=== PATIENT | male | born 1960 | race Caucasian/White ===

== ENCOUNTER 2020-09-24 19:40 | Emergency (ER) | payer MEDICARE, MEDICAID, SELFPAY ==
[2020-09-24 19:42] VITALS: BP 195/91; PULSE 81; RESP 18; TEMP 36.6; O2SAT 96; BMI 38.7
--- NOTE | 2020-09-24 19:49 | EKG12_ITS ---
Test Reason : HTN Blood Pressure : / mmHG Vent. Rate : 078 BPM Atrial Rate : 078 BPM P-R Int : 210 ms QRS Dur : 094 ms QT Int : 408 ms P-R-T Axes : 108 020 029 degrees QTc Int : 465 ms Sinus rhythm with 1st degree A-V block with Premature supraventricular complexes Otherwise normal ECG Confirmed by ROLAND JOHNS, FAUSTINA ([id number]), story editor SHARAN DOE ([id number]) on 09/26/2020 9:09:11 AM Referred By: MERRITT Confirmed By:FAUSTINA WATKINS MD
--- NOTE | 2020-09-24 19:49 | CT_ITS ---
STUDY: CT BRAIN WITHOUT CONTRAST REASON FOR EXAM: Male, 60 years old. HEADACHE, INCREASED BP RADIATION DOSAGE (If Supplied By Facility): CTDIvol = ( 44.99 ) mGy, DLP = ( 863.60 ) mGycm TECHNIQUE: Transaxial CT imaging of the brain was performed without administration of intravenous contrast material. Individualized dose optimization techniques were used for this CT. COMPARISON: No relevant priors. FINDINGS: Normal soft tissue structures. Normal calvarium. Calcification of cavernous carotids and vertebral arteries. Normal size ventricles and extra-axial spaces for the patient''s age. Mild periventricular white matter ischemic changes.. Normal basal ganglia and thalami. Normal brainstem. Normal cerebellum. There is no intracranial hemorrhage. There are no findings of an acute ischemic infarction. Postsurgical changes of the orbits Normal visualized paranasal sinuses. CT/Brain/Head without Contrast IMPRESSION: Mild periventricular white matter ischemic changes. No evidence for obstructive hydrocephalus mass or acute bleed. If concern for acute infarct MRI recommended Electronically Signed: Steven Mcgee MD at 20:12 EDT , Service support ,
--- NOTE | 2020-09-24 19:52 | ED.RN ---
NO OLD EKGS IN MUSE
--- NOTE | 2020-09-24 19:57 | ED.DCSUM_ITS ---
History of Present Illness Chief Complaint: Hypertension Informant: Patient Onset: Today Context: Gradual Onset Timing: Continuous Current Severity: Mild Maximum Severity: Moderate Narrative: The patient is a 60-year-old male with medical history significant for hypertension, hyperlipidemia, stage III kidney disease, prior kidney stone, coronary vascular disease status post stenting who presents to the emergency department with elevated blood pressure. The patient states that he went to [place] today to see his primary care doctor. He states that he had blood w ork done which showed that his A1c was good. He states his blood pressure was mildly elevated in the office. His physician told him to test it when he got home. He states that he went to the drug [place] and took his blood pressure. He states it was 230 systolic. He states this made him very anxious. He does describe a mild frontal headache. He denies chest pain or shortness of breath. He called squad because of how elevated his blood pressure was. He states he has not taken his nighttime doses. Prior similar symptoms: No Recent Illness/Hospitalization: No Past Medical History - Allergies and Home Meds Allergies/Adverse Reactions: Allergies allopurinol Adverse Reaction (Verified 09/24/20 19:42) Vomiting Influenza Virus Vaccines Adverse Reaction (Verified 09/24/20 19:42) Vomiting pneumococcal vaccine Adverse Reaction (Verified 09/24/20 19:42) Vomiting Primary Care Physician: SAMM VALENCIA [Other] Prior records reviewed: Yes Past Medical History: - - Hypertension, hyperlipidemia, coronary vascular disease, chronic kidney disease, diabetes Smoking Status: Never smoker Review of Systems General: Denies: Chills, Fever, Sweats Eyes: Denies: Visual changes - bilaterally, Diplopia ENT: Denies: Rhinorrhea, Sore throat Cardiovascular: Denies: Chest pain, Palpitations Respiratory: Denies: Dyspnea, Cough, Dyspnea on exertion Gastrointestinal: Denies: Abdominal pain, Nausea, Vomiting, Diarrhea, Melena, Hematochezia Genitourinary: Denies: Dysuria, Hematuria, Frequency Musculoskeletal: Denies: Back pain, Extremity Pain Skin: Denies: Rash, Wounds Neurological: Denies: Headache, Weakness, Numbness Physical Exam Vital Signs/Narrative: Vital Signs Temp Pulse Resp BP Pulse Ox 09/24/20 19:42 98 F 81 18 195/91 H 96 Inital Vital Signs reviewed: Yes General: Well nourished, Well developed, No Acute Distress Head: Normocephalic, Atraumatic Eyes: Perrl, EOMI ENT: Moist mucous membranes, No rhinorrhea Neck: Supple, Nontender Cardiovascular: Regular rate, Regular rhythm, No murmurs Respiratory: No distress, CTA bilaterally, Chest nontender Abdomen: Soft, Nontender, Nondistended, Normal bowel sounds Back: Nontender, Normal Inspection Extremities: Nontender, No edema Skin: Normal color, No rash Neurological: Alert, Oriented x3, Cranial nerves II-XII grossly intact, Normal Strength, Normal Sensation Psychological: Normal affect, Normal Mood Diagnostic/Tx/Re-eval Clinical Impression(s) from Imaging Studies Brain CT 09/24/20 19:49 IMPRESSION: Mild periventricular white matter ischemic changes. No evidence for obstructive hydrocephalus mass or acute bleed. If concern for acute infarct MRI recommended Electronically Signed: Steven Mcgee MD at 20:12 EDT , Service support , Abnormal Lab Results 09/24/20 09/24/20 19:50 19:50 WBC 9.3 RBC 4.87 Hgb 14.1 Hct 44.6 MCV 91.6 MCH 29.0 MCHC 31.6 L RDW Std Deviation 44.4 H RDW Coeff of James 13.2 Plt Count 218 MPV 10.5 Immature Gran % (Auto) 0.200 Neut % (Auto) 69.1 Lymph % (Auto) 21.1 [place] % (Auto) 8.1 Eos % (Auto) 1.1 Baso % (Auto) 0.4 Absolute Neuts (auto) 6.4 Absolute Lymphs (auto) 1.97 Nucleated RBC % 0 Sodium 142 Potassium 4.1 Chloride 106 Carbon Dioxide 32.0 Anion Gap 4 L BUN 19 H Creatinine 1.42 H Estim Creat Clear Calc 56.41 Est GFR (MDRD) Af Amer 65 Est GFR (MDRD) Non-Af 54 L BUN/Creatinine Ratio 13.4 Glucose 238 H Calcium 9.3 Total Bilirubin 0.50 AST 19 ALT 23 Alkaline Phosphatase 148 H Total Protein 7.7 Albumin 3.6 Globulin 4.1 Albumin/Globulin Ratio 0.9 - Medical Decision Making The patient presents with elevated blood pressure. He did describe mild frontal headache which is since resolved. Noncontrast head CT was obtained which was unremarkable. The patient was hypertensive. He has not taken his evening medications. Patient was given a dose of his clonidine. His blood pressure still maintained elevated. He was given hydralazine and his evening dose of Coreg. Within an hour, his blood pressure was improving. His symptoms have totally resolved. His work-up was essentially negative. At this point, I do feel that he is safe for outpatient follow-up. He is comfortable with this plan of care. Impression 1. Hypertensive urgency ED Disposition - Plan for ED Patient: Instructions: ED Hypertension Established Referrals: SAMM VALENCIA [Other]
[2020-09-24 20:04] LABS: Absolute Lymphocyte Count 1.97 X10^3/uL (0.83-4.51); Absolute Neutrophil Count 6.4 X10^3/uL (2.0-7.7); Basophil# 0.04 X10^3/uL; Basophil% 0.4 % (0-1); Eosinophils% 1.1 % (0-5); Hematocrit 44.6 % (40-54); Hemoglobin 14.1 g/dL (13.0-16.5); Lymphocyte # 1.97 X10^3/ul (4.0); Lymphocyte % 21.1 % (19-41); Mean Corp Hgb Conc 31.6 g/dL (32-36); Mean Corpuscular Volume 91.6 fL (80-94); Mean Platelet Vol. 10.5 fl (6.2-12.0); Monocyte# 0.76 X10^3/uL; Monocyte% 8.1 % (0-10); NRBC Flagged by Analyzer 0 % (0-5); Neutrophil # 6.44 X10^3/uL (2.7-7.7); Neutrophil % 69.1 % (47-70); Platelet Count 218 K/mm3 (150-450); RBC Distribution Width CV 13.2 % (11.6-14.6); RBC Distribution Width SD 44.4 fl (35.1-43.9); Red Blood Count 4.87 M/mm3 (4.6-6.2); White Blood Count 9.3 K/mm3 (4.4-11.0)
[2020-09-24 20:21] LABS: ALB/GLOB Ratio 0.9 RATIO (0.9-2.4); AST(SGOT) 19 U/L (15-37); Alanine Aminotransfer ALT/SGPT 23 U/L (16-61); Albumin, Serum 3.6 g/dL (3.2-5.0); Alkaline Phosphatase 148 U/L (45-117); Anion Gap 4 (5-15); BUN 19 mg/dL (7-18); BUN/Creat Ratio 13.4 RATIO (10-20); Calcium,Total 9.3 mg/dL (8.5-10.1); Chloride 106 mmol/L (98-107); Creatinine, Serum 1.42 mg/dL (0.70-1.30); EST Glomerular Filtration Rate 54 mL/min (>60); Est Glom Filt Rate - Afr Amer 65 mL/min (>60); Estimated Creatinine Clearance 56.41 ml/min; Globulin 4.1 g/dL (2.2-4.2); Glucose 238 mg/dL (74-106); Potassium 4.1 mmol/L (3.5-5.1); Protein, Total 7.7 g/dL (6.4-8.2); Sodium Level 142 mmol/L (136-145)
[2020-09-24] MEDS: Clonidine HCl 0.1 MG, Clonidine HCl 0.2 MG 0.3 MG PO (20:26)
[2020-09-24 21:31] VITALS: BP 240/110
[2020-09-24] MEDS: hydrALAZINE 20 MG/ML Vial 10 MG IV (21:36)
[2020-09-24] MEDS: Carvedilol 25 MG Tablet PO (21:47)
[2020-09-24 22:12] VITALS: BP 215/98; PULSE 89; RESP 22; O2SAT 95
[2020-09-24 22:32] VITALS: BP 192/104; PULSE 90; RESP 16; O2SAT 96
== END 2020-09-24 22:37 | disposition home or self-care (01) ==
LOC: ED 20:26
PROVIDERS: Emergency Provider Emergency Medicine
DX: I16.0 Hypertensive urgency (principal); I12.9 Hypertensive chronic kidney disease with stage 1 through stage 4 chronic kidney disease, or unspecified chronic kidney disease; E11.22 Type 2 diabetes mellitus with diabetic chronic kidney disease; N18.9 Chronic kidney disease, unspecified; E78.5 Hyperlipidemia, unspecified; I25.10 Atherosclerotic heart disease of native coronary artery without angina pectoris; Z87.442 Personal history of urinary calculi; Z95.5 Presence of coronary angioplasty implant and graft
CPT/HCPCS: 70450; 80053; 85025; 93005; 96374; 99285; A4216

== ENCOUNTER 2021-02-11 14:26 | Emergency (ER) | payer MEDICARE, MEDICAID, SELFPAY ==
[2021-02-11 14:27] VITALS: BP 146/81; PULSE 73; RESP 16; TEMP 36.4; O2SAT 96; BMI 37.7
--- NOTE | 2021-02-11 14:37 | VDLE_ITS ---
Reason For Study: pain RIGHT GSV is normal. CFV is compressible, spontaneous, phasic, competent and demonstrates normal augmentation. FV is compressible, spontaneous, phasic, competent and demonstrates normal augmentation. POP V is compressible, spontaneous, phasic, competent and demonstrates normal augmentation. T/P Trunk is compressible. PTV is compressible. RT PerV is compressible. Procedure This is a venous duplex using B-mode, color flow and spectral Doppler. Exam performed portable in ED. The exam was abbreviated due to the COVID 19 protocol. The exam was diagnostic. A preliminary report was called and/or faxed to Dr. Banegas. Interpretation Summary There is no evidence of right lower extremity deep vein thrombosis. Right great saphenous vein appears patent and compressible segmentally. Abbreviated COVID-19 protocol Ordering Physician: Praneeth Banegas Performed By: Tio Drake RVT
--- NOTE | 2021-02-11 14:39 | ED.VIS.GEN ---
History of Present Illness Chief Complaint: Lower Extremity Injury Informant: Patient Narrative: 60-year-old male with past medical history of hypertension, diabetes, coronary artery disease, peripheral vascular disease presents with concern for right lower extremity pain. States is been present for the past 2 months. Worsening over the past few days. States it is aching in nature. States it radiates from his right ankle up to his knee. States it is intermittent. Worse with walking. Denies any trauma. Spoke with his vascular surgeon Dr. Dai who advised he come to the emergency department for imaging. Patient denies any chest pain or shortness of breath. Patient currently on Plavix. Past Medical History - Allergies and Home Meds Allergies/Adverse Reactions: Allergies allopurinol Adverse Reaction (Verified 02/11/21 14:29) Vomiting Influenza Virus Vaccines Adverse Reaction (Verified 02/11/21 14:29) Vomiting pneumococcal vaccine Adverse Reaction (Verified 02/11/21 14:29) Vomiting Primary Care Physician: [facility] Doctor,Out of [NON-STAFF] - Prior records reviewed: Yes Past Medical History: - - Coronary artery disease, hypertension, diabetes Surgical History: - - Bilaterl lower extremity vascular stenting. Lives: With Family Smoking Status: Never smoker Alcohol: None Drugs: None Review of Systems General: Denies: Chills, Fever, Sweats Eyes: Denies: Visual changes - bilaterally, Diplopia ENT: Denies: Rhinorrhea, Sore throat Cardiovascular: Denies: Chest pain, Palpitations Respiratory: Denies: Dyspnea, Cough, Dyspnea on exertion Gastrointestinal: Denies: Abdominal pain, Nausea, Vomiting, Diarrhea, Melena, Hematochezia Genitourinary: Denies: Dysuria, Hematuria, Frequency Musculoskeletal: Reports: Myalgias. Denies: Back pain, Extremity Pain Skin: Denies: Rash, Wounds Neurological: Denies: Headache, Weakness, Numbness Physical Exam Vital Signs/Narrative: Vital Signs Temp Pulse Resp BP Pulse Ox 02/11/21 14:27 97.6 F L 73 16 146/81 H 96 Inital Vital Signs reviewed: Yes General: Well nourished, Well developed, No Acute Distress Head: Normocephalic, Atraumatic Eyes: Perrl, EOMI ENT: Moist mucous membranes, No rhinorrhea Neck: Supple, Nontender Cardiovascular: Regular rate, Regular rhythm, No murmurs Respiratory: No distress, CTA bilaterally, Chest nontender Abdomen: Soft, Nontender, Nondistended, Normal bowel sounds Back: Nontender, Normal Inspection Extremities: No edema, - - Tenderness to palpation along the right lower extremity extending from approximately the ankle up to the knee. No overlying skin changes. Full range of motion of both the ankle and the knee. Strong and palpable DP, PT, popliteal pulses. No temperature difference between right and left lower extr Skin: Normal color, No rash Neurological: Alert, Oriented x3, Cranial nerves II-XII grossly intact, Normal Strength, Normal Sensation Psychological: Normal affect, Normal Mood Diagnostic/Tx/Re-eval Clinical Impression(s) from Imaging Studies Lower Extremity CTA 02/11/21 15:05 IMPRESSION: Nonstenotic calcific plaques seen with the multiple level of the stenosis involving the posterior tibial artery. Electronically Signed: Den Carver MD at 15:46 EDT , Service support , Laboratory Data 02/11/21 02/11/21 14:50 14:50 WBC 10.9 RBC 4.53 L Hgb 13.2 Hct 41.6 MCV 91.8 MCH 29.1 MCHC 31.7 L RDW Std Deviation 45.9 H RDW Coeff of James 13.5 Plt Count 227 MPV 10.1 Immature Gran % (Auto) 0.600 Neut % (Auto) 69.5 Lymph % (Auto) 19.2 [place] % (Auto) 9.0 Eos % (Auto) 1.2 Baso % (Auto) 0.5 Absolute Neuts (auto) 7.6 Absolute Lymphs (auto) 2.08 Nucleated RBC % 0 Sodium 140 Potassium 4.2 Chloride 106 Carbon Dioxide 31.0 Anion Gap 3 L BUN 30 H Creatinine 1.55 H Estim Creat Clear Calc 51.68 Est GFR (MDRD) Af Amer 59 L Est GFR (MDRD) Non-Af 49 L BUN/Creatinine Ratio 19.4 Glucose 154 H Calcium 9.3 - Medical Decision Making Patient appears well and nontoxic. Vital signs within normal limits. Chronic kidney disease at baseline. Otherwise lab work within normal limits. 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 No evidence of DVT on ultrasound. CTA was done which shows no significant stenosis or occlusion. Patient was given 2 doses of narcotics and is feeling improved. Patient is on 100 mg 3 times a day of gabapentin. I advised him to increase this to 300 mg 3 times a day and follow-up with his doctor within the next 48 hours. Asked to return for new or worsening symptoms. Patient agreeable and stable at time of discharge. Impression: 1. Right lower extremity pain 2. History of peripheral vascular disease ED Disposition - Plan for ED Patient: Disposition: Home or Assisted Living Instructions: What Is Peripheral Neuropathy?, Treating Peripheral Neuropathy Additional Instructions: Follow-up with your family physician as well as vascular surgeon. You may increase your gabapentin from 100 mg 3 times a day to 300 mg 3 times a day.
[2021-02-11] MEDS: Morphine 4 MG/ML Syringe IV (14:48)
[2021-02-11] MEDS: Ondansetron 4 MG/2 ML Vial IV (14:49)
[2021-02-11 14:59] LABS: Absolute Lymphocyte Count 2.08 X10^3/uL (0.83-4.51); Absolute Neutrophil Count 7.6 X10^3/uL (2.0-7.7); Basophil# 0.05 X10^3/uL; Basophil% 0.5 % (0-1); Eosinophil# 0.13 X10^3/uL; Eosinophils% 1.2 % (0-5); Hematocrit 41.6 % (40-54); Hemoglobin 13.2 g/dL (13.0-16.5); Lymphocyte # 2.08 X10^3/ul (4.0); Lymphocyte % 19.2 % (19-41); Mean Corp Hgb Conc 31.7 g/dL (32-36); Mean Corpuscular Hgb 29.1 pg (27.0-32.0); Mean Corpuscular Volume 91.8 fL (80-94); Mean Platelet Vol. 10.1 fl (6.2-12.0); Monocyte# 0.98 X10^3/uL; NRBC Flagged by Analyzer 0 % (0-5); Neutrophil # 7.55 X10^3/uL (2.7-7.7); Neutrophil % 69.5 % (47-70); Platelet Count 227 K/mm3 (150-450); RBC Distribution Width CV 13.5 % (11.6-14.6); RBC Distribution Width SD 45.9 fl (35.1-43.9); Red Blood Count 4.53 M/mm3 (4.6-6.2); White Blood Count 10.9 K/mm3 (4.4-11.0)
--- NOTE | 2021-02-11 15:05 | CT_ITS ---
STUDY: CTA OF THE ABDOMINAL AORTA AND RIGHT LOWER EXTREMITY REASON FOR EXAM: Male, 60 years old. Pain with history of occlusion RADIATION DOSAGE (If Supplied By Facility): CTDIvol = ( 13.605 ) mGy, DLP = ( 952.83 ) mGycm TECHNIQUE: Axial CT angiography multi-detector data acquisition was obtained from the iliac crest to the level of the ankles following intravenous administration of IV 100mL Isovue-370. Axial images and MIP images were reconstructed from the axial data set. Post-processing of the angiographic images was performed, with multiplanar reformation and 3D reconstruction. Individualized dose optimization techniques were used for this CT. TECHNICAL QUALITY: Good COMPARISON: None. Descriptors of Narrowing: None (0%) Mild (< 50%) Moderate (50-70%) Severe (70-90%) Subtotal/Total Occlusion (90-100%) Non-Evaluable (technically non-diagnostic FINDINGS: Small left inguinal hernia containing fat. Right common iliac artery: Nonstenotic calcific plaques. Right external iliac artery: Nonstenotic calcific plaques. Right internal iliac artery: No demonstrated narrowing. Left common iliac artery: Nonstenotic calcific plaques. Left external iliac artery: Nonstenotic calcific plaques. Left internal iliac artery: No demonstrated narrowing. RIGHT LOWER EXTREMITY Right common femoral artery: No demonstrated narrowing. Right profundus femoris: No demonstrated narrowing. Right superficial femoral: Nonstenotic calcific plaques. Right popliteal artery: Nonstenotic calcific plaques. Right tibioperoneal trunk: Nonstenotic calcific plaques. Right anterior tibial artery: Nonstenotic calcific plaques. Right posterior tibial artery: Multiple areas of stenosis. Right peroneal artery: No demonstrated narrowing. CT/CTA LWR EXTR W/O & W/DYE IMPRESSION: Nonstenotic calcific plaques seen with the multiple level of the stenosis involving the posterior tibial artery. Electronically Signed: Den Cavrer MD at 15:46 EDT , Service support ,
[2021-02-11 15:10] LABS: Anion Gap 3 (5-15); BUN 30 mg/dL (7-18); BUN/Creat Ratio 19.4 RATIO (10-20); Calcium,Total 9.3 mg/dL (8.5-10.1); Chloride 106 mmol/L (98-107); Creatinine, Serum 1.55 mg/dL (0.70-1.30); EST Glomerular Filtration Rate 49 mL/min (>60); Est Glom Filt Rate - Afr Amer 59 mL/min (>60); Estimated Creatinine Clearance 51.68 ml/min; Glucose 154 mg/dL (74-106); Potassium 4.2 mmol/L (3.5-5.1); Sodium Level 140 mmol/L (136-145)
[2021-02-11 16:03] VITALS: BP 154/79; PULSE 75; RESP 16; O2SAT 93
[2021-02-11] MEDS: HYDROmorphone 0.5 MG/0.5 ML SYRINGE IV (16:04)
== END 2021-02-11 16:47 | disposition home or self-care (01) ==
PROVIDERS: Emergency Provider Emergency Medicine
DX: M79.604 Pain in right leg (principal); E11.51 Type 2 diabetes mellitus with diabetic peripheral angiopathy without gangrene; E11.22 Type 2 diabetes mellitus with diabetic chronic kidney disease; I12.9 Hypertensive chronic kidney disease with stage 1 through stage 4 chronic kidney disease, or unspecified chronic kidney disease; N18.9 Chronic kidney disease, unspecified; I25.10 Atherosclerotic heart disease of native coronary artery without angina pectoris; Z79.02 Long term (current) use of antithrombotics/antiplatelets; Z79.4 Long term (current) use of insulin; Z79.899 Other long term (current) drug therapy
CPT/HCPCS: 73706; 80048; 85025; 93971; 96374; 96375; 99283; Q9967; A4216; J2405

== ENCOUNTER 2021-02-13 15:10 | Inpatient (IN) | payer MEDICARE, MEDICAID, SELFPAY ==
[2021-02-13] VITALS (16 sets, daily range): BP systolic 88–156; BP diastolic 47–133; PULSE 78–111; RESP 14–22; TEMP 36.8–37.7; O2SAT 88–99; BMI 37.7; BMI 38.2
--- NOTE | 2021-02-13 16:20 | EKG12_ITS ---
Test Reason : Blood Pressure : / mmHG Vent. Rate : 098 BPM Atrial Rate : 098 BPM P-R Int : 230 ms QRS Dur : 092 ms QT Int : 356 ms P-R-T Axes : 083 016 050 degrees QTc Int : 454 ms Sinus rhythm with 1st degree A-V block Otherwise normal ECG Confirmed by ARAMIS JOHNS, MAURO ([id number]), editorial cartoonist SHARAN DOE ([id number]) on 02/17/2021 10:28:48 AM Referred By: KISHA Confirmed By:MAURO SELF MD
--- NOTE | 2021-02-13 16:22 | ED.VIS.GEN ---
History of Present Illness Chief Complaint: Fever Informant: Patient Onset: Today Context: Gradual Onset Timing: Continuous Current Severity: Moderate Maximum Severity: Moderate Narrative: The patient is a 60-year-old male with medical history significant for coronary vascular disease, peripheral vascular disease, lung disease on CPAP, who presents to the emergency department fever and chills. Patient was actually here 2 days ago. At that point, he went for evaluation for foot pain. He had a CTA which was normal and there was no acute occlusion. His gabapentin was changed and he was discharged home. He states that today, he woke with chills and sweats. He states he is also had cough and shortness of breath. His states that he has had an elevated heart rate and just generalized malaise. They deny any recent sick contacts. He is not on oxygen at home. Prior similar symptoms: No Recent Illness/Hospitalization: No Past Medical History - Allergies and Home Meds Allergies/Adverse Reactions: Allergies allopurinol Adverse Reaction (Verified 02/13/21 15:14) Vomiting Influenza Virus Vaccines Adverse Reaction (Verified 02/13/21 15:14) Vomiting pneumococcal vaccine Adverse Reaction (Verified 02/13/21 15:14) Vomiting Primary Care Physician: SAMM VALENCIA [Other] Prior records reviewed: Yes Past Medical History: - - Vascular disease, hypertension, hyperlipidemia, peripheral vascular disease, sleep apnea Surgical History: - - Bilaterl lower extremity vascular stenting. Smoking Status: Never smoker Review of Systems General: Reports: Chills, Fever Eyes: Denies: Visual changes - bilaterally, Diplopia ENT: Denies: Rhinorrhea, Sore throat Cardiovascular: Denies: Chest pain, Palpitations Respiratory: Reports: Dyspnea, Cough Gastrointestinal: Reports: Nausea Genitourinary: Denies: Dysuria, Hematuria, Frequency Musculoskeletal: Reports: Myalgias Skin: Denies: Rash, Wounds Neurological: Denies: Headache, Weakness, Numbness Physical Exam Vital Signs/Narrative: Vital Signs Temp Pulse Resp BP Pulse Ox 02/13/21 15:10 99.9 F H 111 H 22 H 94/50 L 89 Inital Vital Signs reviewed: Yes General: Well nourished, Well developed, No Acute Distress Head: Normocephalic, Atraumatic Eyes: Perrl, EOMI ENT: Moist mucous membranes, No rhinorrhea Neck: Supple, Nontender Cardiovascular: Regular rate, Regular rhythm, No murmurs Respiratory: No distress, CTA bilaterally, Chest nontender Abdomen: Soft, Nontender, Nondistended, Normal bowel sounds Back: Nontender, Normal Inspection Extremities: Nontender, No edema Skin: Normal color, No rash Neurological: Alert, Oriented x3, Cranial nerves II-XII grossly intact, Normal Strength, Normal Sensation Psychological: Normal affect, Normal Mood Diagnostic/Tx/Re-eval Clinical Impression(s) from Imaging Studies Chest X-Ray 02/13/21 17:15 IMPRESSION: Minimal densities at the right base may represent atelectasis versus pneumonia as clinically indicated. Electronically Signed: Herson Mohan MD at 17:52 EDT Tel , Service support , Abnormal Lab Results 02/13/21 02/13/21 02/13/21 16:50 17:00 17:00 WBC 27.3 H RBC 4.13 L Hgb 12.2 L Hct 37.5 L MCV 90.8 MCH 29.5 MCHC 32.5 RDW Std Deviation 45.6 H RDW Coeff of James 13.7 Plt Count 209 MPV 10.4 Immature Gran % (Auto) 0.800 Neut % (Auto) 88.6 H Lymph % (Auto) 3.6 L [place] % (Auto) 6.6 Eos % (Auto) 0.1 Baso % (Auto) 0.3 Absolute Neuts (auto) 24.2 H Absolute Lymphs (auto) 0.99 Nucleated RBC % 0 Differential Comment SEE COMMENTS Diff Path Review May foll Platelet Estimate ADEQUATE RBC Morphology N CHROM Anisocytosis RARE Macrocytosis RARE Sodium 136 Potassium 5.0 Chloride 102 Carbon Dioxide 27.0 Anion Gap 7 BUN 47 H Creatinine 2.86 H Estim Creat Clear Calc 28.01 Est GFR (MDRD) Af Amer 29 L Est GFR (MDRD) Non-Af 24 L BUN/Creatinine Ratio 16.4 Glucose 275 H Lactic Acid 2.7 H* Calcium 9.1 Total Bilirubin 0.70 AST 23 ALT 23 Alkaline Phosphatase 126 H Troponin I 0.022 Total Protein 7.4 Albumin 3.4 Globulin 4.0 Albumin/Globulin Ratio 0.8 L - Rhythm Strip Rhythm Strip: Sinus Rhythm Rate: 80 Ectopy: None - EKG Initial EKG Interpretation: Sinus Rhythm, No Acute Injury Pattern Prior: Unchanged - Medical Decision Making The patient presents to the emergency department cough, fever, shortness of breath. Broad metabolic work-up was pursued. On arrival, the patient has no tachycardia. EKG was obtained. Was sinus rhythm without acute ischemia. Chest x-ray was obtained. Was reviewed by both myself and the radiologist. It does appears that the patient has a right lower lobe infiltrate. His Covid was negative. He was tried to be judicious with fluids as he does have significant history of heart failure. However, the patient has marked leukocytosis, lactic acidosis, acute kidney injury. He was covered with broad-spectrum antibiotics. The patient was discussed with the hospitalist and will be admitted for pneumonia with sepsis. After fluids, his mental status is improved. He is awake and alert. However with his severe sepsis, I do feel that he would benefit from ICU admission. Impression 1. Severe sepsis 2. Community-acquired pneumonia 3. Acute kidney injury 4. Dehydration 5. Hypoxia requiring supplemental oxygen - Critical Care Time Critical care time (excluding procedures): 30-74 minutes, Discussing w/Patient &/or Family/Lead Enterprise Architect, Discussing w/Consultants, Arranging Admission or Transfer ED Disposition - Plan for ED Patient: Referrals: SAMM VALENCIA [Other]
[2021-02-13] MEDS: 0.9% Normal Saline 1,000 ML 150 ML IV (16:54)
[2021-02-13] MEDS: Acetaminophen 500 MG Tablet 1000 MG PO (16:54)
[2021-02-13 17:00] LABS: Absolute Lymphocyte Count 0.99 X10^3/uL (0.83-4.51); Absolute Neutrophil Count 24.2 X10^3/uL (2.0-7.7); Basophil# 0.07 X10^3/uL; Basophil% 0.3 % (0-1); Eosinophil# 0.02 X10^3/uL; Eosinophils% 0.1 % (0-5); Hematocrit 37.5 % (40-54); Hemoglobin 12.2 g/dL (13.0-16.5); Lymphocyte # 0.99 X10^3/ul (4.0); Lymphocyte % 3.6 % (19-41); Mean Corp Hgb Conc 32.5 g/dL (32-36); Mean Corpuscular Hgb 29.5 pg (27.0-32.0); Mean Corpuscular Volume 90.8 fL (80-94); Mean Platelet Vol. 10.4 fl (6.2-12.0); Monocyte# 1.79 X10^3/uL; Monocyte% 6.6 % (0-10); NRBC Flagged by Analyzer 0 % (0-5); Neutrophil # 24.23 X10^3/uL (2.7-7.7); Neutrophil % 88.6 % (47-70); POSITIVE DIFFERENTIAL YES; Platelet Count 209 K/mm3 (150-450); RBC Distribution Width CV 13.7 % (11.6-14.6); RBC Distribution Width SD 45.6 fl (35.1-43.9); Red Blood Count 4.13 M/mm3 (4.6-6.2); White Blood Count 27.3 K/mm3 (4.4-11.0)
--- NOTE | 2021-02-13 17:15 | RAD_ITS ---
STUDY: X-RAY CHEST REASON FOR EXAM: Male, 60 years old. Sob TECHNIQUE: Single frontal view of the chest. COMPARISON: None. FINDINGS: Cardiac silhouette unremarkable. Pulmonary vascularity unremarkable. Aorta unremarkable. No focal airspace opacities. No pleural effusions. Elevation of the right hemidiaphragm is nonspecific. Minimal densities at the right base may represent atelectasis versus pneumonia as clinically indicated. Upper abdomen unremarkable. Osseous structures intact. No pneumothorax. RAD/Chest 1 View (Portable) IMPRESSION: Minimal densities at the right base may represent atelectasis versus pneumonia as clinically indicated. Electronically Signed: Herson Mohan MD at 17:52 EDT Tel , Service support ,
[2021-02-13 17:23] LABS: ALB/GLOB Ratio 0.8 RATIO (0.9-2.4); AST(SGOT) 23 U/L (15-37); Alanine Aminotransfer ALT/SGPT 23 U/L (16-61); Albumin, Serum 3.4 g/dL (3.2-5.0); Alkaline Phosphatase 126 U/L (45-117); Anion Gap 7 (5-15); BUN 47 mg/dL (7-18); BUN/Creat Ratio 16.4 RATIO (10-20); Calcium,Total 9.1 mg/dL (8.5-10.1); Chloride 102 mmol/L (98-107); Creatinine, Serum 2.86 mg/dL (0.70-1.30); EST Glomerular Filtration Rate 24 mL/min (>60); Est Glom Filt Rate - Afr Amer 29 mL/min (>60); Estimated Creatinine Clearance 28.01 ml/min; Glucose 275 mg/dL (74-106); Protein, Total 7.4 g/dL (6.4-8.2); Sodium Level 136 mmol/L (136-145)
[2021-02-13 17:39] LABS: Differential Indicated SCAN CRITERIA MET
[2021-02-13 17:40] LABS: Differential Comment SEE COMMENTS; Platelet Estimate ADEQUATE (ADEQ)
[2021-02-13 17:41] LABS: Anisocytosis RARE; Macrocytosis RARE; Red Cell Morphology N CHROM NORMAL (NORM C&C)
[2021-02-13 17:56] LABS: Lactic Acid 2.7 mmol/L (0.4-1.9)
--- NOTE | 2021-02-13 18:07 | NURSING ---
Dr. Perez made aware of lactic 2.7
[2021-02-13] MEDS: 0.9% Normal Saline 1,000 ML 999 ML IV (18:14)
--- NOTE | 2021-02-13 18:18 | PCM.HP.STD ---
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 transplanted heart: [place] heart Associated angina: angina presence unspecified Qualified Code(s): I25.10 - Atherosclerotic heart disease of [place] coronary artery without angina pectoris (7) PAD (peripheral artery disease) Status: Chronic History of Present Illness Date of Admission: 02/13/21 Chief Complaint: Fever, weakness The patient is a 60 year old M past medical history of type II DM, complicated by bilateral peripheral neuropathy, status post right toes amputation, history of CAD status post stent, PAD status post stent, hypertension who comes in with fever and generalized weakness. He was in the ED 2 days ago, he was seen for foot pain. Work-up at that time was negative for any arterial occlusion. His gabapentin was increased and he was discharged home. He woke up today with fever and chills as well as cough and shortness of breath. Patient is usually not on oxygen at home. Labs in the ED showed temperature of 99.9F, heart rate 111, blood pressure 94/54 respiratory distress 2, SPO2 is 89% on room air, improved to 97% on 2 L. WBC count is 27.3, hemoglobin 12.2, platelet count 209. Sodium is 136, potassium 5.0, chloride 102, bicarbonate 27, BUN 47, creatinine 2.86, lactic acid 2.7, LFTs unremarkable. 19 rapid antigen is negative. COVID-19 PCR is pending Admitting chest x-ray showed densities in the right base possibly early pneumonia. Past Medical History Past Medical History (Chronic Problems): Chronic Problems Hypertension (Chronic) CAD (coronary artery disease) (Chronic) PAD (peripheral artery disease) (Chronic) Allergies allopurinol Adverse Reaction (Verified 02/13/21 15:14) Vomiting Influenza Virus Vaccines Adverse Reaction (Verified 02/13/21 15:14) Vomiting pneumococcal vaccine Adverse Reaction (Verified 02/13/21 15:14) Vomiting Home Medications: Ambulatory Orders Medication Instructions Recorded ALPRAZolam [Xanax] 0.5 mg PO BID 02/11/21 Acetaminophen [Tylenol Extra 1,000 mg PO BID PRN PRN 02/11/21 Strength] Atorvastatin Calcium 80 mg PO QHS 02/11/21 Buspirone HCl 7.5 mg PO TID 02/11/21 Carvedilol 25 mg PO BID 02/11/21 Clopidogrel Bisulfate [Clopidogrel] 75 mg PO DAILY 02/11/21 Exenatide Microspheres [Bydureon 0.65 ml SQ SA 02/11/21 Pen] Finasteride [Proscar] 5 mg PO DAILY 02/11/21 Fluoxetine HCl 40 mg PO DAILY 02/11/21 Fluoxetine HCl [Prozac] 20 mg PO DAILY 02/11/21 Furosemide [Lasix] 40 mg PO DAILY 02/11/21 Gabapentin [Neurontin] 100 mg PO TID 02/11/21 Insulin Detemir [Levemir Flextouch] 24 unit SQ QHS 02/11/21 Insulin Lispro [Humalog KwikPen] 8 unit SQ TIDCM 02/11/21 Isosorbide Mononitrate [Isosorbide 30 mg PO DAILY 02/11/21 Mononitrate ER] Losartan Potassium [Cozaar] 100 mg PO DAILY 02/11/21 Nitroglycerin (INPATIENT USE) 0.4 mg SL Q5M PRN 02/11/21 [Nitrostat] Pantoprazole Sodium [Protonix] 20 mg PO DAILY 02/11/21 Spironolactone 50 mg PO DAILY 02/11/21 Trazodone HCl 100 mg PO QHS 02/11/21 hydrALAZINE [Apresoline] 20 mg GT TID 02/11/21 Surgical History: - - Bilateral lower extremity vascular stenting. Psychiatric History: Depression Lives: Spouse/ Significant Other Smoking Status: Former smoker Tobacco Use: Non-smoker Alcohol: None Drugs: None - *Family History Maternal History Items: Unknown Paternal History Items: Unknown Review of Systems Constitutional: Reports: Anorexia, Chills, Fever, Malaise, Weakness, Fatigue. Denies: Night Sweats, Weight Change Eyes: Denies: Blurred vision, Cataracts, Conjunctivae Inflammation, Pain, Redness, Vision Change HEENT: Denies: Difficulty Hearing, Difficulty Swallowing, Head Aches, Hearing Changes, Sinus Congestion, Sinus Drainage Cardiovascular: Denies: Chest Pain, Claudication, Orthopnea, Palpitations Respiratory: Denies: Cough, Shortness of breath at rest, Shortness of breath upon exertion, Sputum production Gastrointestinal: Denies: Abdominal Pain, Constipation, Hematemesis, Hematochezia, Nausea, Vomiting Genitourinary: Denies: Dysuria, Frequency Musculoskeletal: Denies: Joint Pain, Joint stiffness, Joint swelling, Joint Tenderness Skin: Denies: Rash, Wounds Neurological: Denies: Difficulty swallowing, Focal weakness, Numbness, Tingling Psychiatric: Denies: Anxiety, Depression, Homicidal Ideations, Suicidal Ideations Hematologic/ Lymphatic: Denies: Easy Bruising, Easy Bleeding VTE Information - Inpt Only VTE Present on Admission: No VTE Pharm Prophylaxis ordered?: Yes - Physical Exam Vitals/I&O's: Vital Signs Temp Pulse Resp BP Pulse Ox 99.0 F 99 16 95/73 98 02/13/21 17:07 02/13/21 17:07 02/13/21 17:07 02/13/21 17:07 02/13/21 17:07 Oxygen Flow Rate (L/min) 2 Oxygen Delivery Method Nasal Cannula Weight: 119.295 kg Body Mass Index (BMI) 37.7 General: Alert, Oriented x3, Cooperative, No apparent distress HEENT: Atraumatic, PERRLA, EOMI, Normocephalic Oral: Moist Mucosa Neck: Supple Lungs: Diminished Cardiovascular: Regular rate, Regular Rhythm, Normal S1, Normal S2, No murmurs Abdomen: Bowel Sounds Present, Soft, Non Tender Extremities: No edema, - - s/p right toes amputation Skin: No rashes Musculoskeletal: No Tenderness to Palpation of Joints or Extremities Lymphatic: No Cervical, Supraclavicular, or Inguinal Adenopathy Neurological: Cranial nerves II-XII grossly intact, Neuro grossly intact Psych/Mental Status: Normal Affect, Appropriate Microbiology Past 72 Hours 02/13/21 17:00 Mucosa - Nose SARS-CoV-2 Antigen (Rapid) - Final Laboratory Results 02/13/21 16:50: Sodium 136, Potassium 5.0, Chloride 102, Carbon Dioxide 27.0, Anion Gap 7, BUN 47 H, Creatinine 2.86 H, Estim Creat Clear Calc 28.01, Est GFR (MDRD) Af Amer 29 L, Est GFR (MDRD) Non-Af 24 L, BUN/Creatinine Ratio 16.4, Glucose 275 H, Calcium 9.1, Total Bilirubin 0.70, AST 23, ALT 23, Alkaline Phosphatase 126 H, Troponin I 0.022, Total Protein 7.4, Albumin 3.4, Globulin 4.0, Albumin/Globulin Ratio 0.8 L 02/13/21 17:00: WBC 27.3 H, RBC 4.13 L, Hgb 12.2 L, Hct 37.5 L, MCV 90.8, MCH 29.5, MCHC 32.5, RDW Std Deviation 45.6 H, RDW Coeff of James 13.7, Plt Count 209, MPV 10.4, Immature Gran % (Auto) 0.800, Neut % (Auto) 88.6 H, Lymph % (Auto) 3.6 L, [place] % (Auto) 6.6, Eos % (Auto) 0.1, Baso % (Auto) 0.3, Absolute Neuts (auto) 24.2 H, Absolute Lymphs (auto) 0.99, Nucleated RBC % 0, Differential Comment SEE COMMENTS, Diff Path Review May foll, Platelet Estimate ADEQUATE, RBC Morphology N CHROM, Anisocytosis RARE, Macrocytosis RARE 02/13/21 17:00: Lactic Acid 2.7 H* Current Medications Sodium Chloride () 1,000 mls @ 150 mls/hr IV .Q6H40M ON LICENSE OF [facility] Last Admin: 02/13/21 16:54 Dose: 150 mls/hr Documented by: Azithromycin 500 mg/ Dextrose 255 mls @ 250 mls/hr IV X1 ONE Stop: 02/13/21 18:41 Sodium Chloride () 1,000 mls @ 999 mls/hr IV .Q1H1M ONE Stop: 02/13/21 19:04 Last Admin: 02/13/21 18:14 Dose: 999 mls/hr Documented by: Assessment/Plan All Active Problems Severe sepsis (Acute) Pneumonia (Acute) CELESTE (acute kidney injury) (Acute) Diabetes mellitus (Acute) 1. Severe sepsis secondary to early pneumonia Will admit to ICU, IV fluids per sepsis protocol, Continue on IV ceftriaxone and azithromycin COVID-19 rapid antigen is negative, will check COVID-19 PCR ICU consult. Follow-up on blood cultures 2. CELESTE on CKD stage III, prerenal likely secondary to #1 Baseline creatinine is 1.55. Hold Lasix, spironolactone and losartan Continue on IV fluids, repeat blood work in a.m. 3. Hypertension, controlled, continue on hydralazine, carvedilol 4. Type II DM, complicated by peripheral neuropathy, continue on home insulin Will continue with blood glucose checks with insulin sliding scale 5. Anxiety/depression, continue on BuSpar, Xanax, trazodone 6. CAD status post stent, PAD status post stents, Continue on Plavix, statins, carvedilol, isosorbide` 7. DVT PPx- Heparin SC Inpatient E&M: 12037 Init Hosp L3
[2021-02-13] MEDS: Ceftriaxone 1 GM/50 ML BAG IV (18:33)
[2021-02-13 21:13] LABS: Reflex Lactate? Y
[2021-02-13] MEDS: Insulin Lispro 100 UNIT/ML INSULN.PEN SC (21:51)
[2021-02-13] MEDS: Atorvastatin Calcium 80 MG Tablet PO (21:52)
[2021-02-13] MEDS: ALPRAZolam 0.5 MG Tablet PO (21:52)
[2021-02-13 22:17] LABS: Lactic Acid 1.8 mmol/L (0.4-1.9)
[2021-02-13] MEDS: traZODone 100 MG Tablet PO (22:36)
[2021-02-13 22:46] LABS: Bedside Glucose 232 mg/dL (70-110)
[2021-02-14] VITALS (23 sets, daily range): BP systolic 94–164; BP diastolic 35–93; PULSE 67–90; RESP 11–24; TEMP 36.3–36.9; O2SAT 94–99
[2021-02-14 04:15] LABS: Bacteria 0 SEEN /hpf (None Seen); Mucous, Urine 0 SEEN /hpf (<or=2+); Red Blood Cells-Urine 0 SEEN /hpf (0-5); Squamous Epithelial Cells - UA 0 SEEN /hpf (0-5); White Blood Cells 0 SEEN /hpf (0-5)
[2021-02-14 04:17] LABS: Absolute Lymphocyte Count 1.89 X10^3/uL (0.83-4.51); Absolute Neutrophil Count 22.7 X10^3/uL (2.0-7.7); Basophil# 0.08 X10^3/uL; Basophil% 0.3 % (0-1); Eosinophil# 0.03 X10^3/uL; Eosinophils% 0.1 % (0-5); Hematocrit 33.4 % (40-54); Hemoglobin 10.8 g/dL (13.0-16.5); Lymphocyte # 1.89 X10^3/ul (4.0); Lymphocyte % 7.1 % (19-41); Mean Corp Hgb Conc 32.3 g/dL (32-36); Mean Corpuscular Hgb 29.6 pg (27.0-32.0); Mean Corpuscular Volume 91.5 fL (80-94); Mean Platelet Vol. 10.1 fl (6.2-12.0); Monocyte# 1.54 X10^3/uL; Monocyte% 5.8 % (0-10); NRBC Flagged by Analyzer 0 % (0-5); Neutrophil # 22.68 X10^3/uL (2.7-7.7); Neutrophil % 85.8 % (47-70); POSITIVE DIFFERENTIAL YES; Platelet Count 179 K/mm3 (150-450); RBC Distribution Width CV 13.7 % (11.6-14.6); RBC Distribution Width SD 46.3 fl (35.1-43.9); Red Blood Count 3.65 M/mm3 (4.6-6.2); White Blood Count 26.5 K/mm3 (4.4-11.0)
[2021-02-14 04:20] LABS: Color, Urine Yellow (Yellow); Glucose, Dipstick Normal (Normal); Ketone-Dipstick Negative (Negative); Leukocyte Esterase-Dipstick Negative /ul (Negative); Nitrite-Dipstick Negative (Negative); Occult Blood-Urine Negative /ul (Negative); Protein-Dipstick Negative (Negative); Urine Bilirubin Dipstick Negative (Negative); Urine Clarity Clear (Clear); Urine Urobilinogen Normal (Normal)
[2021-02-14 04:35] LABS: ALB/GLOB Ratio 0.8 RATIO (0.9-2.4); AST(SGOT) 19 U/L (15-37); Alanine Aminotransfer ALT/SGPT 19 U/L (16-61); Albumin, Serum 2.9 g/dL (3.2-5.0); Alkaline Phosphatase 98 U/L (45-117); Anion Gap 5 (5-15); BUN 41 mg/dL (7-18); BUN/Creat Ratio 21.9 RATIO (10-20); Calcium,Total 8.3 mg/dL (8.5-10.1); Chloride 106 mmol/L (98-107); Creatinine, Serum 1.87 mg/dL (0.70-1.30); EST Glomerular Filtration Rate 39 mL/min (>60); Est Glom Filt Rate - Afr Amer 47 mL/min (>60); Estimated Creatinine Clearance 42.29 ml/min; Globulin 3.5 g/dL (2.2-4.2); Glucose 177 mg/dL (74-106); Potassium 4.3 mmol/L (3.5-5.1); Protein, Total 6.4 g/dL (6.4-8.2); Sodium Level 140 mmol/L (136-145)
[2021-02-14 04:49] LABS: Differential Indicated SCAN CRITERIA MET
[2021-02-14 05:18] LABS: Differential Comment SCANNED
--- NOTE | 2021-02-14 05:55 | RAD_ITS ---
STUDY: X-RAY CHEST REASON FOR EXAM: Male, 61 years old. SOB, fever TECHNIQUE: Single AP portable view of the chest. COMPARISON: 02/13/2021 FINDINGS: Stable elevated right hemidiaphragm with stable right basilar airspace disease. The lungs are clear and expanded. There is no demonstrated pleural abnormality. Normal size heart. Normal mediastinum and pat. Normal visualized pulmonary arteries. Normal visualized aortic arch and descending thoracic aorta. Normal visualized thoracic spine. Normal visualized ribs, clavicles, and shoulders. There is no demonstrated abnormality of the visualized soft tissue structures of the upper abdomen. RAD/Chest 1 View (Portable) IMPRESSION: Stable elevated right hemidiaphragm with suspected atelectasis. Remainder is unremarkable Electronically Signed: Perry Artis DO at 6:18 EDT Tel , Service support ,
[2021-02-14] MEDS: Gabapentin 100 MG Capsule PO ×3 (08:39→16:26)
[2021-02-14 08:40] LABS: Bedside Glucose 148 mg/dL (70-110)
[2021-02-14] MEDS: busPIRone 5 MG Tablet 7.5 MG PO ×3 (08:40→16:25)
[2021-02-14] MEDS: hydrALAZINE 10 MG Tablet 20 MG PO ×3 (08:40→16:25)
[2021-02-14] MEDS: Heparin Injection (Vial) 5,000 UNIT/ML VIAL 5000 UNIT SC ×3 (08:40→16:26)
[2021-02-14] MEDS: Insulin Lispro 100 UNIT/ML INSULN.PEN 8 UNIT SC ×3 (08:40→16:25)
[2021-02-14] MEDS: ALPRAZolam 0.5 MG Tablet PO ×2 (09:55→22:03)
[2021-02-14] MEDS: Finasteride 5 MG Tablet PO (09:55)
[2021-02-14] MEDS: Carvedilol 25 MG Tablet PO ×2 (09:55→22:03)
[2021-02-14] MEDS: Clopidogrel Bisulfate 75 MG Tablet PO (09:55)
[2021-02-14] MEDS: Isosorbide Mononitrate 30 MG Tablet PO (09:55)
[2021-02-14] MEDS: Pantoprazole Sodium 20 MG Tablet PO (09:55)
[2021-02-14] MEDS: FLUoxetine 20 MG Capsule 40 MG PO (09:55)
--- NOTE | 2021-02-14 10:00 | PN_ITS ---
Patient Problems: Active and Suspected Problems Severe sepsis (Acute) Pneumonia (Acute) CELESTE (acute kidney injury) (Acute) Diabetes mellitus (Acute) Subjective: Feeling much better today, still on 2 L nasal cannula but maintaining his oxygen sats. Vitals/I&O's: Vital Signs Temp Pulse Resp BP Pulse Ox 98.5 F 81 19 H 113/35 L 99 02/14/21 08:51 02/14/21 08:51 02/14/21 08:51 02/14/21 08:51 02/14/21 08:51 Oxygen Flow Rate (L/min) 2 Oxygen Delivery Method Nasal Cannula Weight: 267 lb 3.204 oz Body Mass Index (BMI) 38.2 Intake and Output for Last 24 Hours 02/12/21 02/13/21 02/14/21 23:59 23:59 23:59 Intake Total 2451.5 705 / 705 Output Total 1600 / 1600 Balance 2451.5 -895 / -895 General: Alert, Oriented x3, Cooperative, No apparent distress HEENT: Atraumatic, PERRLA, EOMI, Normocephalic Oral: Moist Mucosa Neck: Supple, No JVD Lungs: Clear to auscultation, Normal air movement, No rhonchi, No wheeze, No rales, Diminished Cardiovascular: Regular rate, Regular Rhythm, Normal S1, Normal S2, No murmurs Abdomen: Soft, Non Tender, Non-Distended, No Hepato-splenomegaly Extremities: No edema, Capillary Refill Less than 3 Seconds Skin: No rashes, No breakdown Neurological: Neuro grossly intact, Sensory exam intact to light touch and pain Psych/Mental Status: Normal Affect, Appropriate Microbiology Past 72 Hours 02/13/21 17:00 Mucosa - Nose SARS-CoV-2 Antigen (Rapid) - Final Laboratory Results 02/13/21 16:50: Sodium 136, Potassium 5.0, Chloride 102, Carbon Dioxide 27.0, Anion Gap 7, BUN 47 H, Creatinine 2.86 H, Estim Creat Clear Calc 28.01, Est GFR (MDRD) Af Amer 29 L, Est GFR (MDRD) Non-Af 24 L, BUN/Creatinine Ratio 16.4, Glucose 275 H, Calcium 9.1, Total Bilirubin 0.70, AST 23, ALT 23, Alkaline Phosphatase 126 H, Troponin I 0.022, Total Protein 7.4, Albumin 3.4, Globulin 4.0, Albumin/Globulin Ratio 0.8 L 02/13/21 17:00: WBC 27.3 H, RBC 4.13 L, Hgb 12.2 L, Hct 37.5 L, MCV 90.8, MCH 29.5, MCHC 32.5, RDW Std Deviation 45.6 H, RDW Coeff of James 13.7, Plt Count 209, MPV 10.4, Immature Gran % (Auto) 0.800, Neut % (Auto) 88.6 H, Lymph % (Auto) 3.6 L, [place] % (Auto) 6.6, Eos % (Auto) 0.1, Baso % (Auto) 0.3, Absolute Neuts (auto) 24.2 H, Absolute Lymphs (auto) 0.99, Nucleated RBC % 0, Differential Comment SEE COMMENTS, Diff Path Review March, Platelet Estimate ADEQUATE, RBC Morphology N CHROM, Anisocytosis RARE, Macrocytosis RARE 02/13/21 17:00: Lactic Acid 2.7 H* 02/13/21 20:20: COVID-19 (RAFIQ) Not Detected 02/13/21 21:47: Lactic Acid 1.8 02/13/21 21:47: POC Glucose 232 H 02/14/21 03:40: WBC 26.5 H, RBC 3.65 L, Hgb 10.8 L, Hct 33.4 L, MCV 91.5, MCH 29.6, MCHC 32.3, RDW Std Deviation 46.3 H, RDW Coeff of James 13.7, Plt Count 179, MPV 10.1, Immature Gran % (Auto) 0.900, Neut % (Auto) 85.8 H, Lymph % (Auto) 7.1 L, [place] % (Auto) 5.8, Eos % (Auto) 0.1, Baso % (Auto) 0.3, Absolute Neuts (auto) 22.7 H, Absolute Lymphs (auto) 1.89, Nucleated RBC % 0, Differential Comment SC ANNED, Diff Path Review March foll 02/14/21 03:40: Sodium 140, Potassium 4.3, Chloride 106, Carbon Dioxide 29.0, Anion Gap 5, BUN 41 H, Creatinine 1.87 H, Estim Creat Clear Calc 42.29, Est GFR (MDRD) Af Amer 47 L, Est GFR (MDRD) Non-Af 39 L, BUN/Creatinine Ratio 21.9 H, Glucose 177 H, Calcium 8.3 L, Total Bilirubin 0.50, AST 19, ALT 19, Alkaline Phosphatase 98, Total Protein 6.4, Albumin 2.9 L, Globulin 3.5, Albumin/Globulin Ratio 0.8 L 02/14/21 03:40: Urine Color Yellow, Urine Clarity Clear, Urine pH 6.0, Ur Specific [place] 1.010, Urine Protein Negative, Urine Glucose (UA) Normal, Urine Ketones Negative, Urine Occult Blood Negative, Urine Nitrite Negative, Urine Bilirubin Negative, Urine Urobilinogen Normal, Ur Leukocyte Esterase Negative, Urine RBC 0 SEEN, Urine WBC 0 SEEN, Ur Squamous Epith Cells 0 SEEN, Urine Bacteria 0 SEEN, Urine Mucus 0 SEEN 02/14/21 08:31: POC Glucose 148 H Current Medications Acetaminophen (Acetaminophen 325 Mg Tablet) 650 mg PO Q6H PRN PRN PRN Reason: Pain Score 1-10/Temp > 100.7 F Albuterol Sulfate (Albuterol 2.5 Mg/3 Ml Vial.Neb.) 2.5 mg INHALATION Q2H PRN PRN PRN Reason: SOB/Wheezing Alprazolam (Alprazolam 0.5 Mg Tablet) 0.5 mg PO BID [facility] Last Admin: 02/14/21 09:55 Dose: 0.5 mg Documented by: Atorvastatin Calcium (Atorvastatin Calcium 80 Mg Tablet) 80 mg PO QHS [facility] Last Admin: 02/13/21 21:52 Dose: 80 mg Documented by: Buspirone HCl (Buspirone 5 Mg Tablet) 7.5 mg PO TIDCM [facility] Last Admin: 02/14/21 08:40 Dose: 7.5 mg Documented by: Carvedilol (Carvedilol 25 Mg Tablet) 25 mg PO BID [facility] Last Admin: 02/14/21 09:55 Dose: 25 mg Documented by: Clopidogrel Bisulfate (Clopidogrel Bisulfate 75 Mg Tablet) 75 mg PO DAILY [facility] Last Admin: 02/14/21 09:55 Dose: 75 mg Documented by: Dextrose (Dextrose 50%-Water 25 Gm/50 Ml Disp.Syrin) 0 gm IV X1 PRN; Protocol PRN Reason: Hypoglycemia Finasteride (Finasteride 5 Mg Tablet) 5 mg PO DAILY [facility] Last Admin: 02/14/21 09:55 Dose: 5 mg Documented by: Fluoxetine HCl (Fluoxetine 20 Mg Capsule) 40 mg PO DAILY [facility] Last Admin: 02/14/21 09:55 Dose: 40 mg Documented by: Gabapentin (Gabapentin 100 Mg Capsule) 100 mg PO TIDCM [facility] Last Admin: 02/14/21 08:39 Dose: 100 mg Documented by: Glucagon (Glucagon 1 Mg/Ml Syringe) 1 mg IM .X1 PRN PRN Reason: Hypoglycemia Heparin Sodium (Porcine) (Heparin Injection (Vial) 5,000 Unit/Ml Vial) 5,000 unit SC [facility] [place] Last Admin: 02/14/21 08:40 Dose: 5,000 unit Documented by: Hydralazine HCl (Hydralazine 10 Mg Tablet) [facility] Last Admin: 02/14/21 08:40 Dose: 20 mg Documented by: Ceftriaxone Sodium (Rocephin) 1 gm in 50 mls @ 100 mls/hr IV Q24@2200 [facility] Azithromycin 500 mg/ Dextrose 255 mls @ 250 mls/hr IV Q24@2200 [facility] Last Infusion: 02/14/21 00:30 Dose: Infused Documented by: Insulin Glargine (Insulin Glargine 100 Units/Ml Pen) 24 units SC QHS [facility] Last Admin: 02/13/21 22:36 Dose: 24 u Documented by: Insulin Human Lispro (Insulin Lispro 100 Unit/Ml Insuln.Pen) 0 unit SC 4X/DAYCM [facility]; Protocol Last Admin: 02/14/21 08:41 Dose: Not Given Documented by: Insulin Human Lispro (Insulin Lispro 100 Unit/Ml Insuln.Pen) 8 unit SC [facility] [place] Last Admin: 02/14/21 08:40 Dose: 8 units Documented by: Isosorbide Mononitrate (Isosorbide Mononitrate 30 Mg Tablet) 30 mg PO DAILY [facility] Last Admin: 02/14/21 09:55 Dose: 30 mg Documented by: Pantoprazole Sodium (Pantoprazole Sodium 20 Mg Tablet) 20 mg PO DAILY [facility] Last Admin: 02/14/21 09:55 Dose: 20 mg Documented by: Sodium Chloride (0.9% Saline Lock 10 Ml Syringe) 10 - 40 ml IV UD PRN PRN Reason: SALINE FLUSH Trazodone HCl (Trazodone 100 Mg Tablet) 100 mg PO QHS [facility] Last Admin: 02/13/21 22:36 Dose: 100 mg Documented by: STROKE Vital Signs/Narrative: Vital Signs Temp Pulse Resp BP BP Pulse Ox 02/14/21 08:51 98.5 F 81 19 H 113/35 L 99 02/14/21 08:40 80 02/14/21 07:38 76 02/14/21 07:18 96 02/14/21 07:00 70 17 164/73 H 97 Medical Necessity - Tobacco Use Smoking Status: Never smoker Tobacco Use: Non-smoker Assessment/Plan All Active Problems Severe sepsis (Acute) Pneumonia (Acute) CELESTE (acute kidney injury) (Acute) Diabetes mellitus (Acute) 1. Severe sepsis secondary to community-acquired pneumonia likely gram-positive organism/CELESTE on CKD 3a -Continue with his IV antibiotics, cultures are pending -Covid negative -Wean oxygen as able -May be able to transfer out of the ICU later today -Admission creatinine was 2.86, will continue to monitor 2. HTN/HLD/CAD status post stent/PAD status post stent -Blood pressure stable -Continue with hydralazine and Coreg and isosorbide -Continue with Plavix as well as statins -We will hold Lasix, losartan, Aldactone secondary to CELESTE 3. IDDM 2 -Continue with home insulin as well as sliding scale insulin -Accu-Cheks AC at bedtime -We will make adjustments as necessary 4. Anxiety/depression -Stable -Continue with Xanax, BuSpar, Prozac, trazodone 5. GERD -Stable -Continue with PPI 6. BPH -Stable -Continue with Proscar DVT: Heparin Inpatient E&M: 74610 Subs Hosp L2
--- NOTE | 2021-02-14 10:15 | CASEMGMT ---
Addendum entered by Adriana Fernando 02/14/21 14:48: Pt declined any HHC therapy at this time. Original Note: [facility] [place] Assessment: Face to Face with pt for initial transition planning/care coordination assessment. RN LIZETT introduced self and role at [facility], pt voices understanding and consents to assessment. Pt is sitting up in bed. Pt is A/O x4 and answers all questions appropriately at this time. Care providers, pharmacy, and demographics verified/updated. Admitting Dx: severe sepsis, pneumonia PCP: from [facility] Specialists: Dr. Mackey, pulm; Dr. Phipps, computer hardware technician; Dr. Jones, decal applier Preferred Pharmacy: [facility] Insurance: My Care [facility] Community Plan Prescription Benefit: yes LW/HPOA: Pt reports he does not have a LW/HPOA. States he was given information regarding this last time he was here. LNOK: sister, Alberta Justin, oneil Gipson Living Arrangements: Pt states he lives in a first floor apt with no steps to enter with his fiance and her son. Pt reports being mostly I in ADL's but has fiance help with bathing. Denies concerns at home. 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 DME/HHC/SNF: Pt has a CPAP at home as well as a walker and cane. He is in the process of getting a motorized wheelchair. States it has been ordered but not delivered. Pt reports previously having HHC through [facility] and a SNF stay in [place]. Pt unsure of name of SNF. Pt states no concerns with going home at time of dc. Pt states no further concerns/needs. CM to follow therapy. Advised pt to ask CM if any further question/concerns/needs arise, voices understanding. Pt Goal: Home Plan: Home with family support
[2021-02-14 11:19] LABS: Pathologist Review Reviewed
[2021-02-14 11:23] LABS: Pathologist Review Reviewed
[2021-02-14] MEDS: Insulin Lispro 100 UNIT/ML INSULN.PEN SC ×3 (12:27→22:04)
[2021-02-14 12:35] LABS: Bedside Glucose 224 mg/dL (70-110)
[2021-02-14 16:21] LABS: Bedside Glucose 191 mg/dL (70-110)
[2021-02-14] MEDS: Ceftriaxone 1 GM/50 ML BAG IV (21:56)
[2021-02-14] MEDS: Atorvastatin Calcium 80 MG Tablet PO (22:03)
[2021-02-14 22:10] LABS: Bedside Glucose 161 mg/dL (70-110)
[2021-02-14] MEDS: traZODone 100 MG Tablet PO (22:32)
[2021-02-15] VITALS (17 sets, daily range): BP systolic 144–163; BP diastolic 76–92; PULSE 75–99; RESP 16–25; TEMP 36.7–37.1; O2SAT 86–98
[2021-02-15 07:22] LABS: Absolute Lymphocyte Count 1.82 X10^3/uL (0.83-4.51); Absolute Neutrophil Count 11.6 X10^3/uL (2.0-7.7); Basophil# 0.03 X10^3/uL; Basophil% 0.2 % (0-1); Eosinophil# 0.08 X10^3/uL; Eosinophils% 0.6 % (0-5); Hematocrit 34.1 % (40-54); Hemoglobin 10.9 g/dL (13.0-16.5); Lymphocyte # 1.82 X10^3/ul (4.0); Lymphocyte % 12.5 % (19-41); Mean Corpuscular Hgb 29.1 pg (27.0-32.0); Mean Corpuscular Volume 90.9 fL (80-94); Mean Platelet Vol. 10.6 fl (6.2-12.0); Monocyte# 0.92 X10^3/uL; Monocyte% 6.3 % (0-10); NRBC Flagged by Analyzer 0 % (0-5); Neutrophil # 11.62 X10^3/uL (2.7-7.7); Neutrophil % 79.9 % (47-70); Platelet Count 190 K/mm3 (150-450); RBC Distribution Width CV 13.5 % (11.6-14.6); RBC Distribution Width SD 45.8 fl (35.1-43.9); Red Blood Count 3.75 M/mm3 (4.6-6.2); White Blood Count 14.5 K/mm3 (4.4-11.0)
[2021-02-15 08:05] LABS: Anion Gap 5 (5-15); BUN 27 mg/dL (7-18); BUN/Creat Ratio 20.3 RATIO (10-20); Calcium,Total 8.7 mg/dL (8.5-10.1); Chloride 107 mmol/L (98-107); Creatinine, Serum 1.33 mg/dL (0.70-1.30); EST Glomerular Filtration Rate 58 mL/min (>60); Est Glom Filt Rate - Afr Amer 70 mL/min (>60); Estimated Creatinine Clearance 59.46 ml/min; Glucose 223 mg/dL (74-106); Potassium 4.3 mmol/L (3.5-5.1); Sodium Level 140 mmol/L (136-145)
[2021-02-15] MEDS: Insulin Lispro 100 UNIT/ML INSULN.PEN 8 UNIT SC ×3 (08:16→16:44)
[2021-02-15] MEDS: Insulin Lispro 100 UNIT/ML INSULN.PEN SC ×4 (08:16→21:07)
[2021-02-15 08:26] LABS: Bedside Glucose 193 mg/dL (70-110)
--- NOTE | 2021-02-15 08:37 | CPS ---
pt placed on room air. saturation 94%. nurse aware of change.
[2021-02-15] MEDS: busPIRone 5 MG Tablet 7.5 MG PO ×3 (09:17→16:32)
[2021-02-15] MEDS: FLUoxetine 20 MG Capsule 40 MG PO (09:18)
[2021-02-15] MEDS: hydrALAZINE 10 MG Tablet 20 MG PO ×3 (09:18→16:33)
[2021-02-15] MEDS: Heparin Injection (Vial) 5,000 UNIT/ML VIAL 5000 UNIT SC ×2 (09:19→16:34)
[2021-02-15] MEDS: Pantoprazole Sodium 20 MG Tablet PO (09:21)
[2021-02-15] MEDS: Finasteride 5 MG Tablet PO (09:21)
[2021-02-15] MEDS: Gabapentin 100 MG Capsule PO ×3 (09:21→16:34)
[2021-02-15] MEDS: Clopidogrel Bisulfate 75 MG Tablet PO (09:21)
[2021-02-15] MEDS: Isosorbide Mononitrate 30 MG Tablet PO (09:22)
[2021-02-15] MEDS: Carvedilol 25 MG Tablet PO ×2 (09:22→21:06)
[2021-02-15] MEDS: Nystatin Powder 15gm Bottle 1 APPLIC TOPICAL ×2 (09:27→21:06)
[2021-02-15] MEDS: ALPRAZolam 0.5 MG Tablet PO ×2 (09:27→23:03)
[2021-02-15 12:25] LABS: Bedside Glucose 167 mg/dL (70-110)
--- NOTE | 2021-02-15 12:47 | PN_ITS ---
Patient Problems: Active and Suspected Problems Severe sepsis (Acute) Pneumonia (Acute) CELESTE (acute kidney injury) (Acute) Diabetes mellitus (Acute) Subjective: Patient seen and examined. He has no complaints today. He says shortness of breath is much better. Patient was insistent on being discharged. However with a cane, his oxygen saturation dropped to 86% and required 4 L of oxygen to get up to above 90%. Of note, patient is not on oxygen at home. Patient therefore counseled that he would need further recuperation in hospital. He has remained hemodynamically stable. WBC is also 14.5. Vitals/I&O's: Vital Signs Temp Pulse Resp BP Pulse Ox 98.2 F 86 16 144/76 H 86 02/15/21 09:15 02/15/21 12:20 02/15/21 09:15 02/15/21 09:15 02/15/21 11:13 Oxygen Flow Rate (L/min) [ 4 AMBULATING with Oxygen #2] Oxygen Flow Rate (L/min) [ 2 AMBULATING with Oxygen #1] Oxygen Flow Rate (L/min) 2 Oxygen Delivery Method Nasal Cannula Weight: 261 lb 3.964 oz Body Mass Index (BMI) 38.2 Intake and Output for Last 24 Hours 02/13/21 02/14/21 02/15/21 23:59 23:59 23:59 Intake Total 2001.2.5 1250 / 1250 690 / 690 Output Total 3725 / 3725 1500 / 1500 Balance 2001.5 / 2452.5 -2475 / -2475 -810 / -810 General: Alert, Oriented x3, Cooperative, No apparent distress HEENT: Atraumatic Oral: Moist Mucosa Neck: Supple, No JVD, Negative Carotid Bruits Lungs: - - diminished breath sounds bibasally, no wheezes or crackles. On 4L of oxygen. Cardiovascular: Regular rate, Regular Rhythm, Normal S1, Normal S2, No murmurs Abdomen: Bowel Sounds Present, Soft, Non Tender, Non-Distended, No Hepato- splenomegaly Extremities: No clubbing, No cyanosis, No edema, Capillary Refill Less than 3 Seconds Skin: No rashes, No breakdown Musculoskeletal: No Tenderness to Palpation of Joints or Extremities Lymphatic: No Cervical, Supraclavicular, or Inguinal Adenopathy Neurological: Cranial nerves II-XII grossly intact, Neuro grossly intact, Motor Exam 5/5 strength throughout Psych/Mental Status: Normal Affect, Appropriate, Alert and oriented to time, p lace, person, mood and affect Microbiology Past 72 Hours 02/13/21 17:00 Mucosa - Nose SARS-CoV-2 Antigen (Rapid) - Final Laboratory Results 02/14/21 16:15: POC Glucose 191 H 02/14/21 21:53: POC Glucose 161 H 02/15/21 06:40: WBC 14.5 H, RBC 3.75 L, Hgb 10.9 L, Hct 34.1 L, MCV 90.9, MCH 29.1, MCHC 32.0, RDW Std Deviation 45.8 H, RDW Coeff of James 13.5, Plt Count 190, MPV 10.6, Immature Gran % (Auto) 0.500, Neut % (Auto) 79.9 H, Lymph % (Auto) 12.5 L, Clinch % (Auto) 6.3, Eos % (Auto) 0.6, Baso % (Auto) 0.2, Absolute Neuts (auto) 11.6 H, Absolute Lymphs (auto) 1.82, Nucleated RBC % 0 02/15/21 06:40: Sodium 140, Potassium 4.3, Chloride 107, Carbon Dioxide 28.0, Anion Gap 5, BUN 27 H, Creatinine 1.33 H, Estim Creat Clear Calc 59.46, Est GFR (MDRD) Af Amer 70, Est GFR (MDRD) Non-Af 58 L, BUN/Creatinine Ratio 20.3 H, Glucose 223 H, Calcium 8.7 02/15/21 08:13: POC Glucose 193 H 02/15/21 12:13: POC Glucose 167 H Diagnostic Data Chest X-Ray 02/14/21 05:55 IMPRESSION: Stable elevated right hemidiaphragm with suspected atelectasis. Remainder is unremarkable Electronically Signed: Perry Artis DO at 6:18 EDT Tel , Service support , Current Medications Acetaminophen (Acetaminophen 325 Mg Tablet) 650 mg PO Q6H PRN PRN PRN Reason: Pain Score 1-10/Temp > 100.7 F Albuterol Sulfate (Albuterol 2.5 Mg/3 Ml Vial.Neb.) 2.5 mg INHALATION Q2H PRN PRN PRN Reason: SOB/Wheezing Alprazolam (Alprazolam 0.5 Mg Tablet) 0.5 mg PO BID [facility] Last Admin: 02/15/21 09:27 Dose: 0.5 mg Documented by: Atorvastatin Calcium (Atorvastatin Calcium 80 Mg Tablet) 80 mg PO QHS [facility] Last Admin: 02/14/21 22:03 Dose: 80 mg Documented by: Buspirone HCl (Buspirone 5 Mg Tablet) 7.5 mg PO TIDCM [facility] Last Admin: 02/15/21 12:20 Dose: 7.5 mg Documented by: Carvedilol (Carvedilol 25 Mg Tablet) 25 mg PO BID [facility] Last Admin: 02/15/21 09:22 Dose: 25 mg Documented by: Clopidogrel Bisulfate (Clopidogrel Bisulfate 75 Mg Tablet) 75 mg PO DAILY [facility] Last Admin: 02/15/21 09:21 Dose: 75 mg Documented by: Dextrose (Dextrose 50%-Water 25 Gm/50 Ml Disp.Syrin) 0 gm IV X1 PRN; Protocol PRN Reason: Hypoglycemia Finasteride (Finasteride 5 Mg Tablet) 5 mg PO DAILY [facility] Last Admin: 02/15/21 09:21 Dose: 5 mg Documented by: Fluoxetine HCl (Fluoxetine 20 Mg Capsule) 40 mg PO DAILY [facility] Last Admin: 02/15/21 09:18 Dose: 40 mg Documented by: Gabapentin (Gabapentin 100 Mg Capsule) 100 mg PO TIDCM [facility] Last Admin: 02/15/21 12:15 Dose: 100 mg Documented by: Glucagon (Glucagon 1 Mg/Ml Syringe) 1 mg IM .X1 PRN PRN Reason: Hypoglycemia Heparin Sodium (Porcine) (Heparin Injection (Vial) 5,000 Unit/Ml Vial) [facility] [place] [facility] [place] Admin: 02/15/21 12:16 Dose: Not Given Documented by: Hydralazine HCl (Hydralazine 10 Mg Tablet) 20 mg PO TIDCM [facility] Last Admin: 02/15/21 12:20 Dose: 20 mg Documented by: Ceftriaxone Sodium (Rocephin) 1 gm in 50 mls @ 100 mls/hr IV Q24@2200 [facility] Last Infusion: 02/14/21 22:31 Dose: Infused Documented by: Azithromycin 500 mg/ Dextrose 255 mls @ 250 mls/hr IV Q24@2200 [facility] Last Infusion: 02/14/21 23:45 Dose: Infused Documented by: Insulin Glargine (Insulin Glargine 100 Units/Ml Pen) 24 units SC QHS [facility] Last Admin: 02/14/21 22:05 Dose: 24 u Documented by: Insulin Human Lispro (Insulin Lispro 100 Unit/Ml Insuln.Pen) 0 unit SC 4X/DAYCM [facility]; Protocol Last Admin: 02/15/21 12:15 Dose: 1 u Documented by: Insulin Human Lispro (Insulin Lispro 100 Unit/Ml Insuln.Pen) 8 unit SC TIDCM [facility] Last Admin: 02/15/21 12:15 Dose: 8 units Documented by: Isosorbide Mononitrate (Isosorbide Mononitrate 30 Mg Tablet) 30 mg PO DAILY [facility] Last Admin: 02/15/21 09:22 Dose: 30 mg Documented by: Nystatin (Nystatin Powder 15gm Bottle) 1 applic TOPICAL BID [facility]; Protocol Last Admin: 02/15/21 09:27 Dose: 1 applic Documented by: Pantoprazole Sodium (Pantoprazole Sodium 20 Mg Tablet) 20 mg PO DAILY [facility] Last Admin: 02/15/21 09:21 Dose: 20 mg Documented by: Sodium Chloride (0.9% Saline Lock 10 Ml Syringe) 10 - 40 ml IV UD PRN PRN Reason: SALINE FLUSH Trazodone HCl (Trazodone 100 Mg Tablet) 100 mg PO QHS [facility] Last Admin: 02/14/21 22:32 Dose: 100 mg Documented by: STROKE Vital Signs/Narrative: Vital Signs Temp Pulse Resp BP Pulse Ox Pulse Ox Pulse Ox 02/15/21 12:20 86 02/15/21 11:35 75 02/15/21 11:13 86 02/15/21 10:00 86 88 02/15/21 09:18 98 02/15/21 09:15 98.2 F 99 16 144/76 H 95 02/15/21 08:55 93 Pulse Ox Pulse Ox 02/15/21 12:20 02/15/21 11:35 02/15/21 11:13 02/15/21 10:00 94 98 02/15/21 09:18 02/15/21 09:15 02/15/21 08:55 Medical Necessity - Tobacco Use Smoking Status: Never smoker Tobacco Use: Non-smoker Assessment/Plan All Active Problems Severe sepsis (Acute) Pneumonia (Acute) CELESTE (acute kidney injury) (Acute) Diabetes mellitus (Acute) #Severe sepsis due to community acquired pneumonia * wbc is down to 14 * feels better, but still remains hypoxic * on IV ceftriaxone and azithromycin * titrate oxygen to maintain sats >90% * #CELESTE on CKD 3 * resolved. Cr is 1.33 * #Type 2 diabetes mellitus * on insulin to 24 units nightly. ISS. Accuchecks ACHS #Hypertension: On carvedilol #CAD: On carvedilol, atorvastatin and Plavix/Imdur. #Anxiety and depression: on xanax, buspar, prozac and trazodone #BPH: on proscar DVT prophylaxis: heparin. Disposition: for likely DC tomorrow Inpatient E&M: 76946 Subs Hosp L2
[2021-02-15] MEDS: Glycerin/Hypromellose/PEG400 15 ml Bottle 2 DRP EACH EYE (16:34)
[2021-02-15] MEDS: FLUoxetine 20 MG Capsule 60 MG PO (16:36)
[2021-02-15 16:51] LABS: Bedside Glucose 223 mg/dL (70-110)
[2021-02-15] MEDS: Atorvastatin Calcium 80 MG Tablet PO (21:06)
[2021-02-15 21:21] LABS: Bedside Glucose 202 mg/dL (70-110)
[2021-02-15] MEDS: Ceftriaxone 1 GM/50 ML BAG IV (23:03)
[2021-02-15] MEDS: traZODone 100 MG Tablet PO (23:03)
[2021-02-16] VITALS (9 sets, daily range): BP systolic 124–169; BP diastolic 85–106; PULSE 71–84; RESP 16–18; TEMP 36.6–37.2; O2SAT 86–96
[2021-02-16 06:25] LABS: Absolute Lymphocyte Count 2.31 X10^3/uL (0.83-4.51); Basophil# 0.04 X10^3/uL; Basophil% 0.3 % (0-1); Eosinophil# 0.17 X10^3/uL; Eosinophils% 1.3 % (0-5); Hemoglobin 11.2 g/dL (13.0-16.5); Lymphocyte # 2.31 X10^3/ul (4.0); Mean Corpuscular Hgb 29.2 pg (27.0-32.0); Mean Corpuscular Volume 91.1 fL (80-94); Mean Platelet Vol. 10.4 fl (6.2-12.0); Monocyte# 0.95 X10^3/uL; NRBC Flagged by Analyzer 0 % (0-5); Neutrophil # 10.03 X10^3/uL (2.7-7.7); Platelet Count 212 K/mm3 (150-450); RBC Distribution Width CV 13.5 % (11.6-14.6); RBC Distribution Width SD 45.5 fl (35.1-43.9); Red Blood Count 3.84 M/mm3 (4.6-6.2); White Blood Count 13.6 K/mm3 (4.4-11.0)
[2021-02-16 06:55] LABS: Anion Gap 5 (5-15); BUN 24 mg/dL (7-18); BUN/Creat Ratio 19.7 RATIO (10-20); Calcium,Total 8.8 mg/dL (8.5-10.1); Chloride 106 mmol/L (98-107); Creatinine, Serum 1.22 mg/dL (0.70-1.30); EST Glomerular Filtration Rate 64 mL/min (>60); Est Glom Filt Rate - Afr Amer 77 mL/min (>60); Estimated Creatinine Clearance 64.82 ml/min; Glucose 178 mg/dL (74-106); Potassium 4.4 mmol/L (3.5-5.1); Sodium Level 139 mmol/L (136-145)
[2021-02-16] MEDS: Insulin Lispro 100 UNIT/ML INSULN.PEN SC (09:05)
[2021-02-16] MEDS: Insulin Lispro 100 UNIT/ML INSULN.PEN 8 UNIT SC ×2 (09:06→13:22)
[2021-02-16] MEDS: hydrALAZINE 10 MG Tablet 20 MG PO ×2 (09:09→13:19)
[2021-02-16] MEDS: busPIRone 5 MG Tablet 7.5 MG PO ×2 (09:10→13:21)
[2021-02-16] MEDS: Heparin Injection (Vial) 5,000 UNIT/ML VIAL 5000 UNIT SC ×2 (09:11→13:21)
[2021-02-16] MEDS: Gabapentin 100 MG Capsule PO ×2 (09:11→13:21)
[2021-02-16] MEDS: Carvedilol 25 MG Tablet PO (09:12)
[2021-02-16] MEDS: Isosorbide Mononitrate 30 MG Tablet PO (09:12)
[2021-02-16] MEDS: Nystatin Powder 15gm Bottle 1 APPLIC TOPICAL (09:12)
[2021-02-16] MEDS: Pantoprazole Sodium 20 MG Tablet PO (09:13)
[2021-02-16] MEDS: Finasteride 5 MG Tablet PO (09:13)
[2021-02-16] MEDS: FLUoxetine 20 MG Capsule 60 MG PO (09:13)
[2021-02-16] MEDS: Clopidogrel Bisulfate 75 MG Tablet PO (09:13)
[2021-02-16] MEDS: ALPRAZolam 0.5 MG Tablet PO (09:14)
[2021-02-16 09:25] LABS: Bedside Glucose 169 mg/dL (70-110)
[2021-02-16 11:42] LABS: D-Dimer Quantitative (DVT/PE) 0.58 FEU/ug/m (0.27-0.49)
--- NOTE | 2021-02-16 11:49 | CT_ITS ---
STUDY: CTA CHEST REASON FOR EXAM: Male, 61 years old. elevated D dimer RADIATION DOSAGE (If Supplied By Facility): CTDIvol = ( 16.22 ) mGy, DLP = ( 570.72 ) mGycm TECHNIQUE: The examination was performed with the intravenous administration of IV 100mL Isovue-370. Post-processing of the angiographic images was performed, with multiplanar reformation and 3D reconstruction. Individualized dose optimization techniques were used for this CT. COMPARISON: Chest x-ray 02/14/2021 FINDINGS: Normal enhancement of the main pulmonary artery and right and left pulmonary arteries. Normal enhancement of the bilateral peripheral pulmonary arteries. There is no demonstrated pulmonary embolism. Normal thoracic aorta and visualized great vessels. There is no demonstrated aortic dissection. Normal heart and pericardium. There are calcifications of the coronary arteries. Normal mediastinum. Normal hilar regions. Normal visualized trachea and bronchi. The lungs are well expanded. Multiple ill-defined nodules in the right upper lobe consistent with atypical pneumonia. Elevated right hemidiaphragm with right lower lobe atelectasis and scarring. Normal chest wall structures. Normal osseous structures. Normal visualized upper abdomen. CT/CTA Chest W/WO Contrast IMPRESSION: 1. No CT evidence of pulmonary embolism. 2. Atypical right upper lobe pneumonia. Electronically Signed: Deuce Floyd MD at 13:26 EDT Tel , Service support ,
[2021-02-16] MEDS: 0.9% Saline Lock 10 ML Syringe IV (13:26)
--- NOTE | 2021-02-16 13:34 | DCINST_ITS ---
- Discharge Diagnoses Current Active Problems: Current Active and Chronic Problems Severe sepsis (Acute) Pneumonia (Acute) CELESTE (acute kidney injury) (Acute) Hypertension (Chronic) Diabetes mellitus (Acute) CAD (coronary artery disease) (Chronic) PAD (peripheral artery disease) (Chronic) You will use the following diet at home:: Cardiac Your food should be the consistency of: Regular Your liquids should be the consistency of: Regular/Thin Discharge Activity: Return to Normal Activity Weight Bearing Status: Weight bearing as tolerated Call your doctor if you observe: Fever of 101 or Higher, Shortness of breath, Dizziness, Fainting spells, Swelling in the ankles Instructions: Pneumonia, Sepsis Additional Instructions: use oxygen 2L as needed for shortness of breath Allergies/Adverse Reactions: Allergies allopurinol Adverse Reaction (Verified 02/13/21 15:14) Vomiting Influenza Virus Vaccines Adverse Reaction (Verified 02/13/21 15:14) Vomiting pneumococcal vaccine Adverse Reaction (Verified 02/13/21 15:14) Vomiting Medications to take at Discharge ALPRAZolam [Xanax] 0.5 mg PO BID 02/11/21 Acetaminophen [Tylenol] 1,000 mg PO BID PRN PRN 02/11/21 Atorvastatin Calcium 80 mg PO QHS 02/11/21 Buspirone HCl 7.5 mg PO TID 02/11/21 Carvedilol 25 mg PO BID 02/11/21 Clopidogrel Bisulfate [Clopidogrel] 75 mg PO DAILY 02/11/21 Exenatide Microspheres [Bydureon Pen] 0.65 ml SQ SA 02/11/21 Finasteride [Proscar] 5 mg PO DAILY 02/11/21 Fluoxetine HCl 40 mg PO DAILY 02/11/21 Fluoxetine HCl [Prozac] 20 mg PO DAILY 02/11/21 Furosemide [Lasix] 40 mg PO DAILY 02/11/21 Gabapentin [Neurontin] 100 mg PO TID 02/11/21 Insulin Detemir [Levemir Flextouch] 24 unit SQ QHS 02/11/21 Insulin Lispro [Humalog KwikPen] 8 unit SQ TIDCM 02/11/21 Isosorbide Mononitrate [Isosorbide Mononitrate ER] 30 mg PO DAILY 02/11/21 Losartan Potassium [Cozaar] 100 mg PO DAILY 02/11/21 Nitroglycerin (INPATIENT USE) [Nitrostat] 0.4 mg SL Q5M PRN 02/11/21 Pantoprazole Sodium [Protonix] 20 mg PO DAILY 02/11/21 Spironolactone 50 mg PO DAILY 02/11/21 Trazodone HCl 100 mg PO QHS 02/11/21 hydrALAZINE [Apresoline] 20 mg GT TID 02/11/21 levoFLOXacin tablet [Levaquin tablet] 750 mg PO DAILY #5 tab 02/16/21 The following prescriptions were given: levoFLOXacin tablet [Levaquin tablet] 750 mg PO DAILY #5 tab Transmission Status: Pending to [facility] Primary Care Physician: SAMM VALENCIA [Other] Please follow up with your Primary Care Physician in: 1-2 weeks Test Results: Test results from this visit will be discussed in further detail at your follow- up appointment, if applicable. Proposed Discharge Date: 02/16/21
[2021-02-16 13:36] LABS: Bedside Glucose 284 mg/dL (70-110)
--- NOTE | 2021-02-16 13:40 | PCM.DC.SUM ---
Discharge Date and Diagnosis - Problem List Patient Problems: Active and Suspected Problems Severe sepsis (Acute) Pneumonia (Acute) CELESTE (acute kidney injury) (Acute) Diabetes mellitus (Acute) Date of Admission: 02/13/21 Date of Discharge: 02/16/21 - Primary Discharge Diagnosis Acute Problems: Active Problems Severe sepsis (Acute) Pneumonia (Acute) CELESTE (acute kidney injury) (Acute) Diabetes mellitus (Acute) acute hypoxic respiratory failure - Secondary Discharge Diagnosis Chronic Problems: Chronic Problems Hypertension (Chronic) CAD (coronary artery disease) (Chronic) PAD (peripheral artery disease) (Chronic) Hospital Course and Treatment Imaging Results: 02/16/21 11:49 CTA Chest W/WO Contrast [CT] Stat Operations: None Procedures: None Summary of Care Provided: The patient is a 61 year old M with a PMH as outlined who was admitted with a complaint of fever and weakness. He had been seen in the ED previously about 2 days prior for foot pain. Work-up done was negative and his gabapentin was increased and he was discharged home. On arriving home, patient noticed that he had become febrile and also had chills associated with a cough and shortness of breath. He was usually not on oxygen at home. In the ED, he had elevated temperature and heart rate was also elevated with blood pressure running low. He was saturating at 89% on room air and WBC was 27.3. Chest x-ray showed probable right lower lobe pneumonia. He was admitted and managed for sepsis due to acquired pneumonia. He was started on IV ceftriaxone and azithromycin. Was also managed for acute hypoxic respiratory insufficiency due to pneumonia. He was put on oxygen which was titrated to maintain saturation above 90%. WBC trended down gradually and was down to 13.6 at time of discharge. Patient shortness of breath improved and he felt much better. Ambulatory pulse ox done on the day of discharge showed that patient required 2 L of oxygen to maintain saturation at 94%. He did drop to 86% on room air with ambulation therefore qualified for home oxygen. Patient was discharged on 02/17/2020 with a prescription for p.o. Levaquin 750 mg daily for 5 days. He is to follow-up with his primary care doctor within 1 to 2 weeks. Of note, D-dimer done was elevated so CTA of the chest was done which was negative for any PE. Patient was seen and examined prior to discharge. He had no complaints. Review of systems otherwise negative. Labs and vitals reviewed. Medication reviewed and reconciled. O/E: Vital Signs Temp Pulse Resp BP Pulse Ox 98.5 F 78 16 124/100 H 96 02/16/21 14:43 02/16/21 14:43 02/16/21 14:43 02/16/21 14:43 02/16/21 14:43 General: Alert, Oriented x3, Cooperative, No apparent distress HEENT: Atraumatic Oral: Moist Mucosa Neck: Supple, No JVD, Negative Carotid Bruits Lungs: - - diminished bibasally, on 2L of oxygen Cardiovascular: Regular rate, Regular Rhythm, Normal S1, Normal S2, No murmurs Abdomen: Bowel Sounds Present, Soft, Non Tender, Non-Distended, No Hepato-splenomegaly Extremities: No clubbing, No cyanosis, No edema, Capillary Refill Less than 3 Seconds Skin: No rashes, No breakdown Musculoskeletal: No Tenderness to Palpation of Joints or Extremities Lymphatic: No Cervical, Supraclavicular, or Inguinal Adenopathy Neurological: Cranial nerves II-XII grossly intact, Neuro grossly intact, Motor Exam 5/5 strength throughout Psych/Mental Status: Normal Affect, Appropriate, Alert and oriented to time, place, person, mood and affect Plan is for discharge home today on 2L of oxygen. Patient Problems: Active and Suspected Problems Severe sepsis (Acute) Pneumonia (Acute) CELESTE (acute kidney injury) (Acute) Diabetes mellitus (Acute) - Physical Exam Vitals/I&O's: Vital Signs Temp Pulse Resp BP Pulse Ox 99.0 F 84 16 167/106 H 94 02/16/21 08:47 02/16/21 13:19 02/16/21 08:47 02/16/21 09:09 02/16/21 10:56 Oxygen Flow Rate (L/min) [ 4 AMBULATING with Oxygen #2] Oxygen Flow Rate (L/min) [ 2 AMBULATING with Oxygen #1] Oxygen Flow Rate (L/min) 2 Oxygen Delivery Method Nasal Cannula Weight: 259 lb 0.69 oz Body Mass Index (BMI) 38.2 Intake and Output for Last 24 Hours 02/14/21 02/15/21 02/16/21 23:59 23:59 23:59 Intake Total 1250 / 1250 1315 / 1375 540 / 540 Output Total 3725 / 3725 1800 / 2400 1450 / 1450 Balance -2475 / -2475 -485 / -1025 -910 / -910 Microbiology Past 72 Hours 02/13/21 17:00 Blood Culture (Wb) - Right Hand Blood Culture - Preliminary No growth in 48 hours. 02/13/21 16:50 Blood Culture (Wb) - Left Hand Blood Culture - Preliminary No growth in 48 hours. 02/13/21 17:00 Mucosa - Nose SARS-CoV-2 Antigen (Rapid) - Final Laboratory Results 02/15/21 16:43: POC Glucose 223 H 02/15/21 21:04: POC Glucose 202 H 02/16/21 05:35: WBC 13.6 H, RBC 3.84 L, Hgb 11.2 L, Hct 35.0 L, MCV 91.1, MCH 29.2, MCHC 32.0, RDW Std Deviation 45.5 H, RDW Coeff of James 13.5, Plt Count 212, MPV 10.4, Immature Gran % (Auto) 0.400, Neut % (Auto) 74.0 H, Lymph % (Auto) 17.0 L, [place] % (Auto) 7.0, Eos % (Auto) 1.3, Baso % (Auto) 0.3, Absolute Neuts (auto) 10.0 H, Absolute Lymphs (auto) 2.31, Nucleated RBC % 0 02/16/21 05:35: Sodium 139, Potassium 4.4, Chloride 106, Carbon Dioxide 28.0, Anion Gap 5, BUN 24 H, Creatinine 1.22, Estim Creat Clear Calc 64.82, Est GFR (MDRD) Af Amer 77, Est GFR (MDRD) Non-Af 64, BUN/Creatinine Ratio 19.7, Glucose 178 H, Calcium 8.8 02/16/21 09:03: POC Glucose 169 H 02/16/21 11:22: D-Dimer Quant (PE/DVT) 0.58 H* 02/16/21 13:18: POC Glucose 284 H Current Medications Acetaminophen (Acetaminophen 325 Mg Tablet) 650 mg PO Q6H PRN PRN PRN Reason: Pain Score 1-10/Temp > 100.7 F Albuterol Sulfate (Albuterol 2.5 Mg/3 Ml Vial.Neb.) 2.5 mg INHALATION Q2H PRN PRN PRN Reason: SOB/Wheezing Alprazolam (Alprazolam 0.5 Mg Tablet) 0.5 mg PO BID [facility] Last Admin: 02/16/21 09:14 Dose: 0.5 mg Documented by: Atorvastatin Calcium (Atorvastatin Calcium 80 Mg Tablet) 80 mg PO QHS [facility] Last Admin: 02/15/21 21:06 Dose: 80 mg Documented by: Buspirone HCl (Buspirone 5 Mg Tablet) 7.5 mg PO TIDCM [facility] Last Admin: 02/16/21 13:21 Dose: 7.5 mg Documented by: Carvedilol (Carvedilol 25 Mg Tablet) 25 mg PO BID [facility] Last Admin: 02/16/21 09:12 Dose: 25 mg Documented by: Clopidogrel Bisulfate (Clopidogrel Bisulfate 75 Mg Tablet) 75 mg PO DAILY [facility] Last Admin: 02/16/21 09:13 Dose: 75 mg Documented by: Dextrose (Dextrose 50%-Water 25 Gm/50 Ml Disp.Syrin) 0 gm IV X1 PRN; Protocol PRN Reason: Hypoglycemia Finasteride (Finasteride 5 Mg Tablet) 5 mg PO DAILY [facility] Last Admin: 02/16/21 09:13 Dose: 5 mg Documented by: Fluoxetine HCl (Fluoxetine 20 Mg Capsule) 60 mg PO DAILY [facility] Last Admin: 02/16/21 09:13 Dose: 60 mg Documented by: Gabapentin (Gabapentin 100 Mg Capsule) 100 mg PO TIDCM [facility] Last Admin: 02/16/21 13:21 Dose: 100 mg Documented by: Glucagon (Glucagon 1 Mg/Ml Syringe) 1 mg IM .X1 PRN PRN Reason: Hypoglycemia Heparin Sodium (Porcine) (Heparin Injection (Vial) 5,000 Unit/Ml Vial) 5,000 unit SC TIDCM [facility] Last Admin: 02/16/21 13:21 Dose: 5,000 unit Documented by: Hydralazine HCl (Hydralazine 10 Mg Tablet) 20 mg PO TIDCM [facility] Last Admin: 02/16/21 13:19 Dose: 20 mg Documented by: Ceftriaxone Sodium (Rocephin) 1 gm in 50 mls @ 100 mls/hr IV Q24@2200 [facility] Last Infusion: 02/15/21 23:35 Dose: Infused Documented by: Azithromycin 500 mg/ Dextrose 255 mls @ 250 mls/hr IV Q24@2200 [facility] Last Infusion: 02/15/21 23:05 Dose: Infused Documented by: Insulin Glargine (Insulin Glargine 100 Units/Ml Pen) 24 units SC QHS [facility] Last Admin: 02/15/21 21:07 Dose: 24 u Documented by: Insulin Human Lispro (Insulin Lispro 100 Unit/Ml Insuln.Pen) 0 unit SC 4X/DAYCM [facility]; Protocol Last Admin: 02/16/21 13:23 Dose: Not Given Documented by: Insulin Human Lispro (Insulin Lispro 100 Unit/Ml Insuln.Pen) 8 unit SC TIDCM [facility] Last Admin: 02/16/21 13:22 Dose: 8 units Documented by: Isosorbide Mononitrate (Isosorbide Mononitrate 30 Mg Tablet) 30 mg PO DAILY [facility] Last Admin: 02/16/21 09:12 Dose: 30 mg Documented by: Nystatin (Nystatin Powder 15gm Bottle) 1 applic TOPICAL BID [facility]; Protocol Last Admin: 02/16/21 09:12 Dose: 1 applic Documented by: Pantoprazole Sodium (Pantoprazole Sodium 20 Mg Tablet) 20 mg PO DAILY [facility] Last Admin: 02/16/21 09:13 Dose: 20 mg Documented by: Sodium Chloride (0.9% Saline Lock 10 Ml Syringe) 10 - 40 ml IV UD PRN PRN Reason: SALINE FLUSH Last Admin: 02/16/21 13:26 Dose: 10 ml Documented by: Trazodone HCl (Trazodone 100 Mg Tablet) 100 mg PO QHS [facility] Last Admin: 02/15/21 23:03 Dose: 100 mg Documented by: Discharge Diet: Low fat/ Low Cholesterol Discharge Activity: Return to Normal Activity Weight Bearing Status: Weight bearing as tolerated Call your doctor if you observe: Fever of 101 or Higher, Shortness of breath, Dizziness, Fainting spells, Swelling in the ankles Home Medications: Medications to take at Discharge ALPRAZolam [Xanax] 0.5 mg PO BID 02/11/21 Acetaminophen [Tylenol] 1,000 mg PO BID PRN PRN 02/11/21 Atorvastatin Calcium 80 mg PO QHS 02/11/21 Buspirone HCl 7.5 mg PO TID 02/11/21 Carvedilol 25 mg PO BID 02/11/21 Clopidogrel Bisulfate [Clopidogrel] 75 mg PO DAILY 02/11/21 Exenatide Microspheres [Bydureon Pen] 0.65 ml SQ SA 02/11/21 Finasteride [Proscar] 5 mg PO DAILY 02/11/21 Fluoxetine HCl 40 mg PO DAILY 02/11/21 Fluoxetine HCl [Prozac] 20 mg PO DAILY 02/11/21 Furosemide [Lasix] 40 mg PO DAILY 02/11/21 Gabapentin [Neurontin] 100 mg PO TID 02/11/21 Insulin Detemir [Levemir Flextouch] 24 unit SQ QHS 02/11/21 Insulin Lispro [Humalog KwikPen] 8 unit SQ TIDCM 02/11/21 Isosorbide Mononitrate [Isosorbide Mononitrate ER] 30 mg PO DAILY 02/11/21 Losartan Potassium [Cozaar] 100 mg PO DAILY 02/11/21 Nitroglycerin (INPATIENT USE) [Nitrostat] 0.4 mg SL Q5M PRN 02/11/21 Pantoprazole Sodium [Protonix] 20 mg PO DAILY 02/11/21 Spironolactone 50 mg PO DAILY 02/11/21 Trazodone HCl 100 mg PO QHS 02/11/21 hydrALAZINE [Apresoline] 20 mg GT TID 02/11/21 levoFLOXacin tablet [Levaquin tablet] 750 mg PO DAILY #5 tab 02/16/21 Following Prescriptions Were Given to Patient: levoFLOXacin tablet [Levaquin tablet] 750 mg PO DAILY #5 tab Transmission Status: Received by [facility] Primary Care Physician: SAMM VALENCIA [Other] Please follow up with your Primary Care Physician in: 1-2 weeks Patient Instructions: Sepsis, Pneumonia Disposition: Home Medical Necessity - Tobacco Use Smoking Status: Never smoker Tobacco Use: Non-smoker Meaningful Use Info Meaningful Use Diagnoses (Choose all that apply): None applicable Inpatient E&M: 13540 Disch Hosp
--- NOTE | 2021-02-16 13:48 | NURSING ---
all care, documentation, and medication administration completed by April Olsen, student nurse, on 02/16/2021 done under the supervision of this RN
--- NOTE | 2021-02-17 15:40 | CASEMGMT ---
ALICE PHOENIX Discharge Follow-up Phone Call: YOUSIF: Navneet Strata: 3 Call Date: 02/17/21 Discharge Date: 02/16/21 Time of Call: 1540 Duration: 5 min Admitting Diagnosis: Severe Sepsis/pneumonia ALICE [facility]EN[facility] completed follow-up phone call at this time. Patient states he is doing well and was setup with his oxygen at home. Patient had no questions or concerns at this time. Patient was able to fill prescriptions without any issues. Patient has follow-up scheduled with rn orthopaedics. Patient had no further questions or concerns at this time.
== END 2021-02-16 15:17 | disposition home or self-care (01) | DRG 871 ==
LOC: ED 18:19 → ICU 18:41 → PCU 02-14 17:53
PROVIDERS: Family Medicine; Admitting Provider Internal Medicine; Emergency Provider Emergency Medicine; Visit Provider Student in an Organized Health Care Education/Training Program
DX: A41.9 Sepsis, unspecified organism (principal); J18.9 Pneumonia, unspecified organism; N17.9 Acute kidney failure, unspecified; R65.20 Severe sepsis without septic shock; R09.02 Hypoxemia; R06.89 Other abnormalities of breathing; E11.22 Type 2 diabetes mellitus with diabetic chronic kidney disease; E11.42 Type 2 diabetes mellitus with diabetic polyneuropathy; E11.51 Type 2 diabetes mellitus with diabetic peripheral angiopathy without gangrene; E78.5 Hyperlipidemia, unspecified; E86.0 Dehydration; F32.9 Major depressive disorder, single episode, unspecified; F41.9 Anxiety disorder, unspecified; I12.9 Hypertensive chronic kidney disease with stage 1 through stage 4 chronic kidney disease, or unspecified chronic kidney disease; I25.10 Atherosclerotic heart disease of native coronary artery without angina pectoris; N18.31 Chronic kidney disease, stage 3a; K21.9 Gastro-esophageal reflux disease without esophagitis; N40.0 Benign prostatic hyperplasia without lower urinary tract symptoms; G47.30 Sleep apnea, unspecified; Z79.4 Long term (current) use of insulin; Z79.899 Other long term (current) drug therapy; Z95.5 Presence of coronary angioplasty implant and graft; Z79.02 Long term (current) use of antithrombotics/antiplatelets; Z87.891 Personal history of nicotine dependence; M79.604 Pain in right leg
CPT/HCPCS: 36415; 71045; 71275; 73706; 80048; 80053; 81001; 82962; 83605; 84484; 85025; 85379; 87040; 87426; 87635; 93005; 93971; 94660; 96374; 96375; 97110; 97162; 97166; 97530; 97802; 99251; 99283; 99285; J7030; J7040; Q9967; A4216; G0463; J2405; U0002

== ENCOUNTER 2021-05-11 15:57 | Emergency (ER) | payer MEDICARE, MEDICAID, SELFPAY ==
[2021-02-13 19:04] VITALS: BMI 38.2
[2021-05-11 16:01] VITALS: BP 110/54; PULSE 80; RESP 16; TEMP 36.6; O2SAT 93; BMI 38.7
--- NOTE | 2021-05-11 16:27 | EDS_ITS ---
HPI History of Present Illness Chief Complaint: Back Informant: patient Narrative Narrative: Patient is a 61-year-old male who presents to the emergency department for acute on semichronic exacerbation of right leg pain. He has been following with orthopedic surgery for this issue. He supposed to have an MRI performed this week. He states that he was just up walking around whenever he developed a sharp pain going down the side of his leg. He describes as severe. He was brought in by EMS. Upon arrival to the emerge department his symptom has resolved. He currently denies any back pain, leg pain. He does have chronic swelling in that leg. He does have toe amputations on that side as well with a history of diabetes. Patient denies any abdominal pain. No chest pain or shortness of breath. No fevers or chills. He has not taken anything for this. [facility] Medical History (Updated 05/11/21 @ 16:45 by Fabi Foster) CAD (coronary artery disease) Diabetes Hypertension PAD (peripheral artery disease) Home Medications acetaminophen 1,000 mg PO BID PRN PRN 02/11/21 [History Last Taken 02/10/21] alprazolam 0.5 mg PO BID 02/11/21 [History Last Taken 02/13/21] atorvastatin 80 mg PO QHS 02/11/21 [History Last Taken 02/12/21] buspirone 7.5 mg PO TID 02/11/21 [History Last Taken 02/13/21] carvedilol 25 mg PO BID 02/11/21 [History Last Taken 02/13/21] clopidogrel 75 mg PO DAILY 02/11/21 [History Last Taken 02/13/21] exenatide microspheres 0.65 ml SQ SA 02/11/21 [History Last Taken 02/08/21] finasteride 5 mg PO DAILY 02/11/21 [History Last Taken 02/13/21] fluoxetine 20 mg PO DAILY 02/11/21 [History Last Taken 02/13/21] fluoxetine 40 mg PO DAILY 02/11/21 [History Last Taken 02/13/21] furosemide 40 mg PO DAILY 02/11/21 [History Last Taken 02/13/21] gabapentin 100 mg PO TID 02/11/21 [History Last Taken 02/13/21] hydralazine 20 mg GT TID 02/11/21 [History Last Taken 02/13/21] insulin detemir U-100 24 unit SQ QHS 02/11/21 [History Last Taken 02/12/21] insulin lispro 8 unit SQ TIDCM 02/11/21 [History Last Taken 02/12/21] isosorbide mononitrate 30 mg PO DAILY 02/11/21 [History Last Taken 02/13/21] losartan 100 mg PO DAILY 02/11/21 [History Last Taken 02/13/21] nitroglycerin 0.4 mg SL Q5M PRN 02/11/21 [History Last Taken 02/08/21] pantoprazole 20 mg PO DAILY 02/11/21 [History Last Taken 02/13/21] spironolactone 50 mg PO DAILY 02/11/21 [History Last Taken 02/13/21] trazodone 100 mg PO QHS 02/11/21 [History Last Taken 02/13/21] levofloxacin 750 mg PO DAILY #5 tab 02/16/21 [Rx Last Taken Unknown] Allergy/AdvReac Type Severity Reaction Status Date / Time allopurinol AdvReac Vomiting Verified 02/13/21 15:14 Influenza Virus Vaccines AdvReac Vomiting Verified 02/13/21 15:14 pneumococcal vaccine AdvReac Vomiting Verified 02/13/21 15:14 Social History Smoking Status: Never smoker ROS ROS ED Constitutional Constitutional ED: Denies chills or fever(s) Eyes Eyes: Denies change in vision ENT ENT ED: Denies epistaxis or rhinorrhea Cardiovascular Cardiovascular: Denies chest pain or palpitations Respiratory/Chest Respiratory/Chest: Denies cough, dyspnea or dyspnea on exertion Gastrointestinal Gastrointestinal: Denies abdominal pain, diarrhea, nausea or vomiting Genitourinary Genitourinary ED: Denies dysuria, hematuria or urinary frequency Musculoskeletal Musculoskeletal: Reports back pain and extremity pain; Denies neck pain Integumentary Denies rash Neurologic Neurologic: Denies dizziness, headache(s) or weakness EXAM Physical Exam Const Vital Signs: 05/11/21 16:01 Temperature 97.8 F Temperature Source Oral Pulse Rate 80 Respiratory Rate 16 Blood Pressure 110/54 L Blood Pressure Mean 72 Pulse Ox 93 Oxygen Delivery Method Room Air Positive well nourished and well developed General Appearance ED: well developed and NAD HEENT Reports normocephalic, head/scalp atraumatic and moist mucous membranes Eyes PERRL and EOMs intact bilaterally Neck no lymphadenopathy and supple General: Negative for tenderness Chest Wall inspection of chest normal Resp normal respiratory effort and clear to auscultation bilaterally Auscultation: Negative for rales, rhonchi or wheezes Cardio regular rate, regular rhythm and no murmurs GI normal to inspection, nondistended, normoactive bowel sounds and non-tender Palpation: soft; Negative for guarding or rebound tenderness present Back/Spine no CVA tenderness Back/Spine Narrative: No midline spine pain. No step-off sign. Extremity normal to inspection Extremity Narrative: 5 out of 5 muscle strength throughout. Negative straight leg test bilateral. Neurovascular intact. General Extremety ED: Negative for tenderness Neuro no sensory deficits noted Sensorium / Orientation: alert Motor Exam: strength 5/5 throughout Psych mental status grossly normal Skin no rashes or lesions noted MDM MDM MDM Narrative Medical decision making narrative: Patient presents to the emergency department for low back pain/right lower leg pain. His symptoms resolved upon arrival to the ED. This is been a semichronic issue for him. It has been going on the past couple of months. He denies any trauma which reproduced it today. Again he is asymptomatic throughout ED stay. He was ambulated around the ED without any reproduction. He is supposed to have an MRI this week which she is to follow-up with his orthopedic surgeon for. Return precautions are reviewed. He understands and is agreeable with this plan. All questions answered. Discharge Plan Triage Chief Complaint: Back Other Complaint: Lower Extremity Injury ED Provider: Jean-Claude Mae Dx/Rx/DC Orders Clinical Impression: Leg pain, right Instructions: ED Back Pain (Acute or Chronic) Prescriptions: No Action fluoxetine 40 MG capsule 40 mg PO DAILY RF: 0 furosemide 40 MG tablet 40 mg PO DAILY RF: 0 hydralazine 10 MG tablet 20 mg GT TID RF: 0 atorvastatin 80 MG tablet 80 mg PO QHS RF: 0 carvedilol 25 MG tablet 25 mg PO BID RF: 0 isosorbide mononitrate 30 MG tablet extended release 24 hr 30 mg PO DAILY RF: 0 clopidogrel 75 MG tablet 75 mg PO DAILY RF: 0 acetaminophen 500 MG tablet 1,000 mg PO BID PRN PRN (Reason: Pain 1-10 Or Fever) RF: 0 pantoprazole 20 MG tablet 20 mg PO DAILY RF: 0 alprazolam 0.5 MG tablet 0.5 mg PO BID RF: 0 trazodone 100 MG tablet 100 mg PO QHS RF: 0 nitroglycerin 0.4 MG tablet, sublingual 0.4 mg SL Q5M PRN (Reason: Chest Pain) RF: 0 buspirone 7.5 MG tablet 7.5 mg PO TID RF: 0 gabapentin 100 MG capsule 100 mg PO TID RF: 0 losartan 100 MG tablet 100 mg PO DAILY RF: 0 fluoxetine 20 MG capsule 20 mg PO DAILY RF: 0 finasteride 5 MG tablet 5 mg PO DAILY RF: 0 spironolactone 50 MG tablet 50 mg PO DAILY RF: 0 insulin lispro 100 UNIT/ML insulin pen 8 unit SQ TIDCM RF: 0 insulin detemir U-100 100 UNIT/ML insulin pen 24 unit SQ QHS RF: 0 exenatide microspheres 2 MG/0.65 ML pen injector 0.65 ml SQ SA RF: 0 levofloxacin 750 MG tablet 750 mg PO DAILY Qty: 5 RF: 0 Referrals: Town Doctor,Out of [NON-STAFF] - Activity Restrictions/Additional Instructions: Please follow-up with your orthopedic surgeon in the next 3 to 5 days. Disposition Disposition: Home, self care Discharge Date/Time: 05/11/21 16:50
== END 2021-05-11 16:50 | disposition home or self-care (01) ==
LOC: ED 16:41
PROVIDERS: Emergency Provider Emergency Medicine
DX: M79.604 Pain in right leg (principal); I25.10 Atherosclerotic heart disease of native coronary artery without angina pectoris
CPT/HCPCS: 99284; J7030; A4216

== ENCOUNTER 2021-05-13 16:54 | Observation (INO) | payer MEDICARE, MEDICAID, SELFPAY ==
[2021-05-13] VITALS (9 sets, daily range): BP systolic 96–150; BP diastolic 54–95; PULSE 69–84; RESP 14–18; TEMP 36.3–36.6; O2SAT 93–97; BMI 38.0; BMI 37.6
--- NOTE | 2021-05-13 17:44 | EKG12_ITS ---
Test Reason : CP Blood Pressure : / mmHG Vent. Rate : 085 BPM Atrial Rate : 085 BPM P-R Int : 220 ms QRS Dur : 092 ms QT Int : 388 ms P-R-T Axes : 083 011 036 degrees QTc Int : 461 ms Sinus rhythm with marked sinus arrhythmia with 1st degree A-V block Otherwise normal ECG Confirmed by ARAMIS JOHNS, MAURO ([id number]), editor department SHARAN DOE ([id number]) on 05/15/2021 10:08:23 AM Referred By: SCAR Confirmed By:MAURO SELF MD
--- NOTE | 2021-05-13 17:46 | ED.VIS.CHEST ---
HPI History of Present Illness Chief Complaint: Chest Pain Narrative Narrative: 61-year-old male presenting with chest pain in the center of his chest. He is unable to describe what the pain feels like. He states its been there since 9 AM when he woke up this morning. It radiates to his back. He also states he feels a little short of breath. Patient has history of AR x2 with cardiac stents, hypertension, diabetes, GERD. Patient has not had a recent stress test or echocardiogram. He saw his presser all around 3 months ago at that time he was fine. [facility] Medical History (Updated 05/13/21 @ 22:08 by Valentina Ozuna) Amputation of one or more toes CAD (coronary artery disease) Diabetes Hypertension Kidney stones Myocardial infarct PAD (peripheral artery disease) Home Medications acetaminophen 1,000 mg PO BID PRN PRN 02/11/21 [History Last Taken 02/10/21] alprazolam 0.5 mg PO BID 02/11/21 [History Last Taken 02/13/21] atorvastatin 80 mg PO QHS 02/11/21 [History Last Taken 02/12/21] buspirone 7.5 mg PO TID 02/11/21 [History Last Taken 02/13/21] carvedilol 25 mg PO BID 02/11/21 [History Last Taken 02/13/21] clopidogrel 75 mg PO DAILY 02/11/21 [History Last Taken 02/13/21] exenatide microspheres 0.65 ml SQ SA 02/11/21 [History Last Taken 02/08/21] finasteride 5 mg PO DAILY 02/11/21 [History Last Taken 02/13/21] fluoxetine 20 mg PO DAILY 02/11/21 [History Last Taken 02/13/21] fluoxetine 40 mg PO DAILY 02/11/21 [History Last Taken 02/13/21] furosemide 40 mg PO DAILY 02/11/21 [History Last Taken 02/13/21] hydralazine 20 mg GT TID 02/11/21 [History Last Taken 02/13/21] insulin detemir U-100 24 unit SQ QHS 02/11/21 [History Last Taken 02/12/21] insulin lispro 8 unit SQ TIDCM 02/11/21 [History Last Taken 02/12/21] isosorbide mononitrate 30 mg PO DAILY 02/11/21 [History Last Taken 02/13/21] losartan 100 mg PO DAILY 02/11/21 [History Last Taken 02/13/21] nitroglycerin 0.4 mg SL Q5M PRN 02/11/21 [History Last Taken 02/08/21] pantoprazole 20 mg PO DAILY 02/11/21 [History Last Taken 02/13/21] spironolactone 50 mg PO DAILY 02/11/21 [History Last Taken 02/13/21] trazodone 100 mg PO QHS 02/11/21 [History Last Taken 02/13/21] levofloxacin 750 mg PO DAILY #5 tab 02/16/21 [Rx Last Taken Unknown] pregabalin [Lyrica] 75 mg PO BID 05/13/21 [History Last Taken Unknown] Allergy/AdvReac Type Severity Reaction Status Date / Time allopurinol AdvReac Vomiting Verified 05/13/21 16:55 Influenza Virus Vaccines AdvReac Vomiting Verified 05/13/21 16:55 pneumococcal vaccine AdvReac Vomiting Verified 05/13/21 16:55 Family History (Updated 05/13/21 @ 21:[address] Jean-Claude Randall MD) Other Diabetes Heart disease Surgical History (Updated 05/13/21 @ 22:08 by Valentina Ozuna) History of coronary artery stent placement Stented coronary artery Social History Smoking Status: Never smoker ROS ROS ED Constitutional Constitutional ED: Denies chills, fever(s) or sweats Eyes Eyes: Denies blurry vision or change in vision ENT ENT ED: Denies ear pain, rhinorrhea or sore throat Cardiovascular Cardiovascular: Reports chest pain; Denies palpitations or racing heartbeat Respiratory/Chest Respiratory/Chest: Reports dyspnea; Denies cough or sputum Gastrointestinal Gastrointestinal: Denies abdominal pain, constipation, diarrhea or vomiting Genitourinary Genitourinary ED: Denies dysuria, hematuria or urinary frequency Musculoskeletal Musculoskeletal: Denies arthralgias, myalgias or neck pain Integumentary Denies abscess, Abrasions or rash Neurologic Neurologic: Denies headache(s), paresthesias or weakness Psychiatric Psychiatric: Denies anxiety, depression, suicidal ideation or suicidal thoughts Endocrine Endocrinology: Denies polydipsia or polyuria EXAM Physical Exam Const Vital Signs: 05/13/21 16:55 05/13/21 18:02 05/13/21 18:35 Temperature 97.3 F L Temperature Source Temporal Pulse Rate 69 77 78 Respiratory Rate 18 17 16 Respiratory Effort Blood Pressure 101/54 L 103/71 150/79 H Blood Pressure Mean 69 81 102 Pulse Ox 93 97 97 Oxygen Delivery Method Room Air Room Air Room Air 05/13/21 18:37 05/13/21 20:00 Temperature Temperature Source Pulse Rate Respiratory Rate 16 Respiratory Effort Non-Labored Blood Pressure Blood Pressure Mean Pulse Ox Oxygen Delivery Method Room Air Positive obese General Appearance ED: NAD Nutritional Appearance: obese HEENT normocephalic and atraumatic Eyes PERRL and EOMs intact bilaterally General Eye ED: Negative for pale conjunctiva or scleral icterus Chest Wall inspection of chest normal and palpation of chest normal Resp normal respiratory effort Effort and Inspection: respiratory distress Cardio regular rate and regular rhythm Extremity General Extremety ED: Negative for edema General Extremity: Negative for edema Neuro oriented x3 Sensorium / Orientation: awake and alert Psych mental status grossly normal Skin no rashes or lesions noted and no wounds Heart Score History: Moderately Suspicious ECG: Normal Age: >45 - <65 years Risk Factors: >/= 3 Risk Factors or History of CAD Score: 4 MDM MDM MDM Narrative Medical decision making narrative: Patient presenting with chest pain which he cannot really describe well which started about 9 AM. He states it radiates to his back. He does feel somewhat short of breath. EKG interpreted by myself shows a sinus rhythm at 85 bpm with first-degree AV block. Chest x-ray as interpreted by myself shows mild pulmonary edema. Radiology does agree. Otherwise his lab work shows that his white blood cell count is 11.6 his hemoglobin is also 11.6. His electrolytes are normal. Creatinine is 1.56. BNP 67.6. Given patient's chest pain and heart score of 4 he will be admitted to the hospital. Patient stable on transfer. Impression: 1. Chest pain 2. Dyspnea Lab Data Labs: Laboratory Results - last 24 hr 05/13/21 05/13/21 05/13/21 18:00 18:00 18:00 WBC 11.6 H RBC 3.98 L Hgb 11.6 L Hct 37.3 L MCV 93.7 MCH 29.1 MCHC 31.1 L RDW Std Deviation 45.6 H RDW Coeff of James 13.3 Plt Count 209 MPV 10.4 Immature Gran % (Auto) 0.700 Neut % (Auto) 75.1 H Lymph % (Auto) 13.1 L [place] % (Auto) 9.5 Eos % (Auto) 1.3 Baso % (Auto) 0.3 Absolute Neuts (auto) 8.7 H Absolute Lymphs (auto) 1.52 Nucleated RBC % 0 D-Dimer Quant (PE/DVT) 0.49 Sodium 142 Potassium 4.1 Chloride 109 H Carbon Dioxide 30.0 Anion Gap 3 L BUN 40 H Creatinine 1.56 H Estim Creat Clear Calc 50.69 Est GFR (MDRD) Af Amer 58 L Est GFR (MDRD) Non-Af 48 L BUN/Creatinine Ratio 25.6 H Glucose 79 Calcium 9.1 Troponin I < 0.015 B-Natriuretic Peptide 05/13/21 18:00 WBC RBC Hgb Hct MCV MCH MCHC RDW Std Deviation RDW Coeff of James Plt Count MPV Immature Gran % (Auto) Neut % (Auto) Lymph % (Auto) [place] % (Auto) Eos % (Auto) Baso % (Auto) Absolute Neuts (auto) Absolute Lymphs (auto) Nucleated RBC % D-Dimer Quant (PE/DVT) Sodium Potassium Chloride Carbon Dioxide Anion Gap BUN Creatinine Estim Creat Clear Calc Est GFR (MDRD) Af Amer Est GFR (MDRD) Non-Af BUN/Creatinine Ratio Glucose Calcium Troponin I B-Natriuretic Peptide 67.6 Radiography Diagnostic Testing: Radiology Impression Chest X-Ray 05/13/21 18:20 IMPRESSION: 1. Mild pulmonary edema. 2. Perihilar opacities, nonspecific, probably edema related, less likely pneumonia. 3. Right lower lung disease, suboptimal evaluation due to elevated hemidiaphragm. Electronically Signed: Jacy Vasquez MD at 18:59 EDT Tel , Service support , Discharge Plan Disposition Disposition: Acute Care Hospital [facility] Discharge Date/Time: 05/13/21 21:39
[2021-05-13] MEDS: Acetaminophen 325 MG Tablet 650 MG PO (17:58)
[2021-05-13] MEDS: Aspirin 81 MG TAB.CHEW 324 MG PO (17:59)
[2021-05-13 18:14] LABS: Absolute Lymphocyte Count 1.52 X10^3/uL (0.83-4.51); Absolute Neutrophil Count 8.7 X10^3/uL (2.0-7.7); Basophil# 0.04 X10^3/uL; Basophil% 0.3 % (0-1); Eosinophil# 0.15 X10^3/uL; Eosinophils% 1.3 % (0-5); Hematocrit 37.3 % (40-54); Hemoglobin 11.6 g/dL (13.0-16.5); Lymphocyte # 1.52 X10^3/ul (0.83-4.51); Lymphocyte % 13.1 % (19-41); Mean Corp Hgb Conc 31.1 g/dL (32-36); Mean Corpuscular Hgb 29.1 pg (27.0-32.0); Mean Corpuscular Volume 93.7 fL (80-94); Mean Platelet Vol. 10.4 fl (6.2-12.0); Monocyte% 9.5 % (0-10); NRBC Flagged by Analyzer 0 % (0-5); Neutrophil # 8.68 X10^3/uL (2.7-7.7); Neutrophil % 75.1 % (47-70); Platelet Count 209 K/mm3 (150-450); RBC Distribution Width CV 13.3 % (11.6-14.6); RBC Distribution Width SD 45.6 fl (35.1-43.9); Red Blood Count 3.98 M/mm3 (4.6-6.2); White Blood Count 11.6 K/mm3 (4.4-11.0)
--- NOTE | 2021-05-13 18:20 | RAD_ITS ---
STUDY: X-RAY CHEST REASON FOR EXAM: Male, 61 years old. chest pain TECHNIQUE: Frontal portable view of the chest COMPARISON: 16 February 2021 FINDINGS: Inspiratory volumes are low. Right hemidiaphragm is severely elevated similar to prior imaging, possibly paralyzed or due to eventration. There is probably mild pulmonary edema. Heart size is normal. There are bilateral perihilar opacities, possibly related to pulmonary edema. There are no pleural effusions. RAD/Chest 1 View (Portable) IMPRESSION: 1. Mild pulmonary edema. 2. Perihilar opacities, nonspecific, probably edema related, less likely pneumonia. 3. Right lower lung disease, suboptimal evaluation due to elevated hemidiaphragm. Electronically Signed: Jacy Vasquez MD at 18:59 EDT Tel , Service support ,
[2021-05-13 18:27] LABS: D-Dimer Quantitative (DVT/PE) 0.49 FEU/ug/m (0.27-0.49)
[2021-05-13 18:33] LABS: Anion Gap 3 (5-15); BUN 40 mg/dL (7-18); BUN/Creat Ratio 25.6 RATIO (10-20); Calcium,Total 9.1 mg/dL (8.5-10.1); Chloride 109 mmol/L (98-107); Creatinine, Serum 1.56 mg/dL (0.70-1.30); EST Glomerular Filtration Rate 48 mL/min (>60); Est Glom Filt Rate - Afr Amer 58 mL/min (>60); Estimated Creatinine Clearance 50.69 ml/min; Glucose 79 mg/dL (74-106); Potassium 4.1 mmol/L (3.5-5.1); Sodium Level 142 mmol/L (136-145)
[2021-05-13 19:54] LABS: BNP,B-Type NATRIURETIC PEPTIDE 67.6 pg/mL (0-100)
--- NOTE | 2021-05-13 20:13 | PCM.HP.STD ---
[facility] - General General Date of Admission: 05/13/21 HPI Narrative REA HANNA, is a 61 M with a significant history of CAD status post stent; PAD status post stent; anxiety disorder; hypertension and hyperlipidemia who presents to emergency department with chest tightness. His chest pain radiates to his upper back. He rated chest pain as 6 out of 10. His chest pain increases with mild exertion and improves with rest. His chest pain lasted for 15 to 20 minutes. Associated with symptoms is shortness of breath. He denies any nausea or vomiting or diaphoresis. He has no nausea. He has pain in his left lower extremity. [facility] Medical History (Updated 05/13/21 @ 21:[address] Jean-Claude Randall MD) Amputation of one or more toes CAD (coronary artery disease) Diabetes Hypertension PAD (peripheral artery disease) Home Medications acetaminophen 1,000 mg PO BID PRN PRN 02/11/21 [History Last Taken 02/10/21] alprazolam 0.5 mg PO BID 02/11/21 [History Last Taken 02/13/21] atorvastatin 80 mg PO QHS 02/11/21 [History Last Taken 02/12/21] buspirone 7.5 mg PO TID 02/11/21 [History Last Taken 02/13/21] carvedilol 25 mg PO BID 02/11/21 [History Last Taken 02/13/21] clopidogrel 75 mg PO DAILY 02/11/21 [History Last Taken 02/13/21] exenatide microspheres 0.65 ml SQ SA 02/11/21 [History Last Taken 02/08/21] finasteride 5 mg PO DAILY 02/11/21 [History Last Taken 02/13/21] fluoxetine 20 mg PO DAILY 02/11/21 [History Last Taken 02/13/21] fluoxetine 40 mg PO DAILY 02/11/21 [History Last Taken 02/13/21] furosemide 40 mg PO DAILY 02/11/21 [History Last Taken 02/13/21] gabapentin 100 mg PO TID 02/11/21 [History Last Taken 02/13/21] hydralazine 20 mg GT TID 02/11/21 [History Last Taken 02/13/21] insulin detemir U-100 24 unit SQ QHS 02/11/21 [History Last Taken 02/12/21] insulin lispro 8 unit SQ TIDCM 02/11/21 [History Last Taken 02/12/21] isosorbide mononitrate 30 mg PO DAILY 02/11/21 [History Last Taken 02/13/21] losartan 100 mg PO DAILY 02/11/21 [History Last Taken 02/13/21] nitroglycerin 0.4 mg SL Q5M PRN 02/11/21 [History Last Taken 02/08/21] pantoprazole 20 mg PO DAILY 02/11/21 [History Last Taken 02/13/21] spironolactone 50 mg PO DAILY 02/11/21 [History Last Taken 02/13/21] trazodone 100 mg PO QHS 02/11/21 [History Last Taken 02/13/21] levofloxacin 750 mg PO DAILY #5 tab 02/16/21 [Rx Last Taken Unknown] Allergy/AdvReac Type Severity Reaction Status Date / Time allopurinol AdvReac Vomiting Verified 05/13/21 16:55 Influenza Virus Vaccines AdvReac Vomiting Verified 05/13/21 16:55 pneumococcal vaccine AdvReac Vomiting Verified 05/13/21 16:55 Family History (Updated 05/13/21 @ 21:[address] Jean-Claude Randall MD) Other Diabetes Heart disease Surgical History (Updated 05/13/21 @ 21:[address] Jean-Claude Randall MD) Stented coronary artery Social History Smoking Status: Never smoker ROS ROS Narrative 12 point review of system is negative except as stated in HPI. Vital Signs Vital Signs Vital Signs: 05/13/21 16:55 05/13/21 18:02 05/13/21 18:35 Temperature 97.3 F L Temperature Source Temporal Pulse Rate 69 77 78 Respiratory Rate 18 17 16 Respiratory Effort Blood Pressure 101/54 L 103/71 150/79 H Blood Pressure Mean 69 81 102 Pulse Ox 93 97 97 Oxygen Delivery Method Room Air Room Air Room Air 05/13/21 18:37 Temperature Temperature Source Pulse Rate Respiratory Rate Respiratory Effort Non-Labored Blood Pressure Blood Pressure Mean Pulse Ox Oxygen Delivery Method Weight Weight: 120.202 kg Body Mass Index (BMI) 38.0 Physical Exam Narrative Alert and oriented x3 Nontraumatic; normocephalic Lung clear to auscultate Heart sounds S1-S2. No murmur, gallop or rubs. Abdomen bowel sounds present soft, nontender nondistended Extremity without edema cyanosis or clubbing. Tender right foot. Amputation of all toes of right foot. Results Lab / Micro Data Result Diagrams: 05/13/21 18:00 05/13/21 18:00 Labs: Laboratory Results - last 24 hr 05/13/21 05/13/21 05/13/21 18:00 18:00 18:00 WBC 11.6 H RBC 3.98 L Hgb 11.6 L Hct 37.3 L MCV 93.7 MCH 29.1 MCHC 31.1 L RDW Std Deviation 45.6 H RDW Coeff of James 13.3 Plt Count 209 MPV 10.4 Immature Gran % (Auto) 0.700 Neut % (Auto) 75.1 H Lymph % (Auto) 13.1 L [place] % (Auto) 9.5 Eos % (Auto) 1.3 Baso % (Auto) 0.3 Absolute Neuts (auto) 8.7 H Absolute Lymphs (auto) 1.52 Nucleated RBC % 0 D-Dimer Quant (PE/DVT) 0.49 Sodium 142 Potassium 4.1 Chloride 109 H Carbon Dioxide 30.0 Anion Gap 3 L BUN 40 H Creatinine 1.56 H Estim Creat Clear Calc 50.69 Est GFR (MDRD) Af Amer 58 L Est GFR (MDRD) Non-Af 48 L BUN/Creatinine Ratio 25.6 H Glucose 79 Calcium 9.1 Troponin I < 0.015 B-Natriuretic Peptide 05/13/21 18:00 WBC RBC Hgb Hct MCV MCH MCHC RDW Std Deviation RDW Coeff of James Plt Count MPV Immature Gran % (Auto) Neut % (Auto) Lymph % (Auto) [place] % (Auto) Eos % (Auto) Baso % (Auto) Absolute Neuts (auto) Absolute Lymphs (auto) Nucleated RBC % D-Dimer Quant (PE/DVT) Sodium Potassium Chloride Carbon Dioxide Anion Gap BUN Creatinine Estim Creat Clear Calc Est GFR (MDRD) Af Amer Est GFR (MDRD) Non-Af BUN/Creatinine Ratio Glucose Calcium Troponin I B-Natriuretic Peptide 67.6 Radiology Impression Chest X-Ray 05/13/21 18:20 IMPRESSION: 1. Mild pulmonary edema. 2. Perihilar opacities, nonspecific, probably edema related, less likely pneumonia. 3. Right lower lung disease, suboptimal evaluation due to elevated hemidiaphragm. Electronically Signed: Jacy Vasquez MD at 18:59 EDT Tel , Service support , Assessment & Plan Assessment/Plan (1) Chest pain: QUALIFIERS: Chest pain type: unspecified Qualified Code(s): R07.9 - Chest pain, unspecified (2) Pulmonary edema: QUALIFIERS: Chronicity: chronic Qualified Code(s): J81.1 - Chronic pulmonary edema PLAN: Chest pain Place on a monitored bed at progressive care unit Impression of chest x-ray by radiology: Mild pulmonary edema. Perihilar opacities, nonspecific, probably edema related, less likely pneumonia. Right lower lung disease, suboptimal evaluation due to elevated hemidiaphragm. Actual CXR image was independently visualized. I agree with radiologist interpretation. Reportedly patient claims that previous chest x-ray had showed pulmonary edema. Actual EKG tracing was independently visualized. EKG tracing showed mild arrhythmia with first-degree AV block. Received aspirin 324 mg at emergency department. ASA 81 mg p.o. daily ordered SL NTG 0.4 mg prn as needed for chest pain ordered Morphine as needed for pain ordered Atorvastatin continued. We will check lipid panel. Anti-P2Y12 Receptor antibody: Plavix continued D-dimer is mildly elevated at 0.58 and appropriate when age corrected. Initial troponin was negative. Serial cardiac enzymes ordered Stat EKG as needed for chest pain Chemical stress test in the AM if the cardiac enzymes are negative. Of note patient have amputation of all toes of the right foot. Further he has tenderness in right lower leg and right feet; and will be unable to do a treadmill Pulmonary edema Patient denies history of CHF. Patient on Lasix and spironolactone; continued. Losartan continued. Hydralazine and Imdur continued. Echocardiogram ordered. Diabetes mellitus with nephropathy. Patient with normal blood glucose of 79 on presentation. Patient is at risk for hypoglycemia. Hold all home blood glucose regimen. Accu-Chek with correction scale insulin ordered. Hypertension Blood pressure is not within goal Home blood pressure medication continued Trend blood pressure and adjust blood pressure medications as necessary. CKD stage IIIa CKD likely secondary to diabetes mellitus Stable. DVT prophylaxis ordered. SCD ordered. Charges/Coding Visit Charges OBSV E&M: 65749 Initial observation care L3
--- NOTE | 2021-05-13 21:49 | EKG12_ITS ---
Test Reason : C.P. ADMIT Blood Pressure : / mmHG Vent. Rate : 078 BPM Atrial Rate : 078 BPM P-R Int : 236 ms QRS Dur : 092 ms QT Int : 406 ms P-R-T Axes : 095 034 061 degrees QTc Int : 462 ms Sinus rhythm with 1st degree A-V block Otherwise normal ECG When compared with ECG of 13-MAY-2021 22:04, MANUAL COMPARISON REQUIRED, DATA IS UNCONFIRMED Confirmed by ARAMIS JOHNS, MAURO ([id number]), managing editor SHARAN DOE ([id number]) on 05/15/2021 10:10:11 AM Referred By: FILOMENA Confirmed By:MAURO SELF MD
--- NOTE | 2021-05-13 21:49 | ECHOD_ITS ---
Reason For Study: CHEST PAIN Procedure This was a 2D Doppler, Color Flow transthoracic echocardiogram. Exam performed in department. Left Ventricle Normal LV size. Left ventricular systolic function is normal. The estimated ejection fraction is 60 %. No regional wall motion abnormalities noted. Right Ventricle Normal RV size. Normal systolic function. Atria Normal left atrium. Normal right atrium. Mitral Valve Mild focal mitral valve calcification, bileaflet. Tricuspid Valve Normal tricuspid valve. Aortic Valve Trisinus/trileaflet aortic valve. Mild focal aortic valve calcification. Pulmonic Valve Normal pulmonic valve. Great Vessels Normal aortic root. The pulmonary artery is normal size. Normal inferior vena cava. Pericardium/Pleural No pericardial effusion. MMode/2D Measurements & Calculations LVIDd: 4.1 cm IVSd: 1.5 cm LVOT diam: 2.2 cm LVIDs: 2.7 cm LVPWd: 1.5 cm LVOT area: 3.7 cm2 RVDd: 3.6 cm FS: 33.3 % Ao root diam: 2.7 cm LAV(MOD-bp): 85.3 ml LA A4 area: 26.0 cm2 LAV(MOD-bp) Indexed: 36.5 ml/m2 LAV(MOD-sp2): 81.9 ml LAV(MOD-sp4): 88.3 ml LA dimension(2D): 4.7 cm RA A4 area: 18.9 cm2 Time Measurements MV dec time: 0.25 sec Doppler Measurements & Calculations MV E max rogelio: 119.8 cm/sec Lat Peak E' Rogelio: 9.6 cm/sec Med Peak E' Rogelio: 7.2 cm/sec MV A max rogelio: 99.9 cm/sec E/E' lat: 12.5 E/E' med: 16.6 MV E/A: 1.2 Ao V2 max: 197.6 cm/sec LV V1 max: 161.9 cm/sec SV(LVOT): 150.4 ml Ao max P.7 mmHg LV V1 max P.5 mmHg Ao V2 mean: 154.5 cm/sec LV V1 mean P.4 mmHg Ao mean P.3 mmHg LV V1 mean: 131.5 cm/sec Ao V2 VTI: 42.1 cm LV V1 VTI: 40.2 cm FAREED(I,D): 3.6 cm2 FAREED(V,D): 3.1 cm2 PA V2 max: 134.5 cm/sec ECHO/Echo Complete Interpretation Summary Normal LV size. Left ventricular systolic function is normal. The estimated ejection fraction is 60 %. Mild focal mitral valve calcification, bileaflet. Mild focal aortic valve calcification. Ordering Physician: Jean-Claude Randall Referring Physician: OTD Performed By: Genna Ibarra RDCS, RVT
[2021-05-13 22:36] LABS: Bedside Glucose 153 mg/dL (70-110)
[2021-05-13] MEDS: Pregabalin 75 MG Capsule PO (22:40)
[2021-05-13] MEDS: Insulin Lispro 100 UNIT/ML INSULN.PEN SC (22:40)
[2021-05-13] MEDS: Carvedilol 25 MG Tablet PO (22:40)
[2021-05-13] MEDS: ALPRAZolam 0.5 MG Tablet PO (22:40)
[2021-05-13] MEDS: traZODone 100 MG Tablet PO (22:40)
[2021-05-13] MEDS: Atorvastatin Calcium 80 MG Tablet PO (22:40)
[2021-05-13] MEDS: busPIRone 5 MG Tablet 7.5 MG PO (22:40)
[2021-05-13] MEDS: 0.9% Saline Lock 10 ML Syringe IV (22:41)
[2021-05-14] VITALS (8 sets, daily range): BP systolic 97–179; BP diastolic 40–118; PULSE 73–79; RESP 16–20; TEMP 36.6–36.8; O2SAT 94–96
[2021-05-14] MEDS: LORazepam 2 MG/ML Syringe 1 MG IV (04:00)
[2021-05-14] MEDS: 0.9% Saline Lock 10 ML Syringe IV (04:00)
[2021-05-14 04:10] LABS: Cholesterol 91 mg/dL (200); High Density Lipoprotein 44 mg/dL; Triglycerides 68 mg/dL; Very Low Density Lipoprotein 14 mg/dL (5-40)
--- NOTE | 2021-05-14 05:00 | EKG12_ITS ---
Test Reason : CP ADMISSION Blood Pressure : / mmHG Vent. Rate : 082 BPM Atrial Rate : 082 BPM P-R Int : 232 ms QRS Dur : 090 ms QT Int : 394 ms P-R-T Axes : 077 006 034 degrees QTc Int : 460 ms Sinus rhythm with 1st degree A-V block Otherwise normal ECG When compared with ECG of 13-MAY-2021 17:03, MANUAL COMPARISON REQUIRED, DATA IS UNCONFIRMED Confirmed by ARAMIS JOHNS, MAURO ([id number]), mapping editor SHARAN DOE ([id number]) on 05/15/2021 10:11:19 AM Referred By: FILOMENA Confirmed By:MAURO SELF MD
[2021-05-14] MEDS: busPIRone 5 MG Tablet 7.5 MG PO ×2 (06:10→13:11)
[2021-05-14] MEDS: hydrALAZINE 10 MG Tablet 20 MG PO (06:10)
[2021-05-14] MEDS: Losartan Potassium 100 MG Tablet PO (06:10)
[2021-05-14] MEDS: Aspirin E.C. 81 MG Tablet PO (06:11)
[2021-05-14 06:26] LABS: Bedside Glucose 177 mg/dL (70-110)
[2021-05-14] MEDS: cloNIDine HCl 0.2 MG Tablet PO (06:53)
[2021-05-14] MEDS: Isosorbide Mononitrate 30 MG Tablet PO (09:48)
[2021-05-14] MEDS: Furosemide 40 MG Tablet PO (09:48)
[2021-05-14] MEDS: Carvedilol 25 MG Tablet PO (09:49)
[2021-05-14] MEDS: Finasteride 5 MG Tablet PO (09:49)
[2021-05-14] MEDS: Pantoprazole Sodium 20 MG Tablet PO (09:49)
[2021-05-14] MEDS: Clopidogrel Bisulfate 75 MG Tablet PO (09:49)
[2021-05-14] MEDS: FLUoxetine 20 MG Capsule 60 MG PO (09:49)
[2021-05-14] MEDS: ALPRAZolam 0.5 MG Tablet PO (09:52)
[2021-05-14] MEDS: Pregabalin 75 MG Capsule PO (09:52)
[2021-05-14] MEDS: Spironolactone 50 MG Tablet PO (09:54)
[2021-05-14] MEDS: Insulin Lispro 100 UNIT/ML INSULN.PEN SC (11:30)
[2021-05-14 11:35] LABS: Bedside Glucose 174 mg/dL (70-110)
--- NOTE | 2021-05-14 11:36 | PCM.DC.SUM ---
Providers Date of Admission: 05/13/21 Primary Care Physician: SAMM VALENCIA Reason For Visit: chest pain Diagnosis Discharge Diagnosis (1) Chest pain: Status: Acute Code(s): R07.9 - Chest pain, unspecified Qualifiers: Chest pain type: unspecified Qualified Code(s): R07.9 - Chest pain, unspecified (2) Pulmonary edema: Status: Acute Code(s): J81.1 - Chronic pulmonary edema Qualifiers: Chronicity: chronic Qualified Code(s): J81.1 - Chronic pulmonary edema Medications at Discharge Home Medications acetaminophen 1,000 mg PO BID PRN PRN 02/11/21 alprazolam 0.5 mg PO BID 02/11/21 atorvastatin 80 mg PO QHS 02/11/21 buspirone 7.5 mg PO TID 02/11/21 carvedilol 25 mg PO BID 02/11/21 clopidogrel 75 mg PO DAILY 02/11/21 exenatide microspheres 0.65 ml SQ SA 02/11/21 finasteride 5 mg PO DAILY 02/11/21 fluoxetine 20 mg PO DAILY 02/11/21 fluoxetine 40 mg PO DAILY 02/11/21 furosemide 40 mg PO DAILY 02/11/21 hydralazine 20 mg GT TID 02/11/21 insulin detemir U-100 24 unit SQ QHS 02/11/21 insulin lispro 8 unit SQ TIDCM 02/11/21 isosorbide mononitrate 30 mg PO DAILY 02/11/21 losartan 100 mg PO DAILY 02/11/21 nitroglycerin 0.4 mg SL Q5M PRN 02/11/21 pantoprazole 20 mg PO DAILY 02/11/21 spironolactone 50 mg PO DAILY 02/11/21 trazodone 100 mg PO QHS 02/11/21 levofloxacin 750 mg PO DAILY #5 tab 02/16/21 pregabalin [Lyrica] 75 mg PO BID 05/13/21 Hospital Course Operations None Procedures Stress test Summary of Care Provided Minutes Spent on Discharge: 40 Hospital Course: Patient is a 61-year-old male with an extensive past medical history as outlined including CAD s/p stents as well as PAD s/p stents and hypertension hyperlipidemia who was admitted through the ED on 05/13/2021 with a complaint of chest tightness. Chest pain radiated to his upper back pain rated at 6 out of 10 and was worsened by exertion and improved by rest. He had associated shortness of breath and review of systems otherwise negative. Chest x-ray showed mild pulmonary edema with perihilar opacities and EKG showed no acute ST changes. He was admitted to be managed for chest pain rule out ACS. Troponins x3 were negative. He had a stress test on 05/14/2021 which was negative for any evidence of ischemia. Patient's chest pain resolved and he did not care during this admission. He remained stable and was discharged home on 05/14/2021. He is to follow-up with his primary care doctor in 1 to 2 weeks. Patient seen and examined prior to discharge. He felt well and had no complaints. Review of systems otherwise negative. Labs and vitals reviewed. Home medication reviewed and reconciled. Physical Exam Const alert, oriented x3 and no apparent distress General Appearance: cooperative and comfortable Orientation / Consciousness: awake, oriented to person, oriented to place and oriented to time Exam Limitations: no limitations HEENT normocephalic, head/scalp atraumatic, hearing grossly normal bilaterally and moist oral mucous membranes Eyes PERRL, EOMs intact bilaterally and conjunctivae normal Neck no lymphadenopathy Resp normal respiratory effort, no retractions, no use of accessory muscles and clear to auscultation bilaterally Cardio regular rate, regular rhythm, S1 normal heart sound, S2 normal heart sound and no murmurs GI normal to inspection, nondistended, normoactive bowel sounds, soft to palpation, non-tender and non-distended Extremity normal to inspection, full ROM and no clubbing, cyanosis or edema Skin no rashes or lesions noted Neuro oriented x3 Sensorium / Orientation: awake and alert Psych affect normal Weight / BMI Weight Weight: 261 lb 11.019 oz Body Mass Index (BMI) 37.6 ABG / Lab / Microbiology Data Result Diagrams: 05/13/21 18:00 05/13/21 18:00 Laboratory: Laboratory Results - last 24 hr 05/13/21 05/13/21 05/13/21 18:00 18:00 18:00 WBC 11.6 H RBC 3.98 L Hgb 11.6 L Hct 37.3 L MCV 93.7 MCH 29.1 MCHC 31.1 L RDW Std Deviation 45.6 H RDW Coeff of James 13.3 Plt Count 209 MPV 10.4 Immature Gran % (Auto) 0.700 Neut % (Auto) 75.1 H Lymph % (Auto) 13.1 L [place] % (Auto) 9.5 Eos % (Auto) 1.3 Baso % (Auto) 0.3 Absolute Neuts (auto) 8.7 H Absolute Lymphs (auto) 1.52 Nucleated RBC % 0 D-Dimer Quant (PE/DVT) 0.49 Sodium 142 Potassium 4.1 Chloride 109 H Carbon Dioxide 30.0 Anion Gap 3 L BUN 40 H Creatinine 1.56 H Estim Creat Clear Calc 50.69 Est GFR (MDRD) Af Amer 58 L Est GFR (MDRD) Non-Af 48 L BUN/Creatinine Ratio 25.6 H Glucose 79 Calcium 9.1 Troponin I < 0.015 B-Natriuretic Peptide Triglycerides Cholesterol LDL Cholesterol VLDL Cholesterol HDL Cholesterol POC Glucose 05/13/21 05/13/21 05/13/21 18:00 22:05 22:09 WBC RBC Hgb Hct MCV MCH MCHC RDW Std Deviation RDW Coeff of James Plt Count MPV Immature Gran % (Auto) Neut % (Auto) Lymph % (Auto) [place] % (Auto) Eos % (Auto) Baso % (Auto) Absolute Neuts (auto) Absolute Lymphs (auto) Nucleated RBC % D-Dimer Quant (PE/DVT) Sodium Potassium Chloride Carbon Dioxide Anion Gap BUN Creatinine Estim Creat Clear Calc Est GFR (MDRD) Af Amer Est GFR (MDRD) Non-Af BUN/Creatinine Ratio Glucose Calcium Troponin I < 0.015 B-Natriuretic Peptide 67.6 Triglycerides Cholesterol LDL Cholesterol VLDL Cholesterol HDL Cholesterol POC Glucose 153 H 05/14/21 05/14/21 05/14/21 00:45 03:32 03:32 WBC RBC Hgb Hct MCV MCH MCHC RDW Std Deviation RDW Coeff of James Plt Count MPV Immature Gran % (Auto) Neut % (Auto) Lymph % (Auto) [place] % (Auto) Eos % (Auto) Baso % (Auto) Absolute Neuts (auto) Absolute Lymphs (auto) Nucleated RBC % D-Dimer Quant (PE/DVT) Sodium Potassium Chloride Carbon Dioxide Anion Gap BUN Creatinine Estim Creat Clear Calc Est GFR (MDRD) Af Amer Est GFR (MDRD) Non-Af BUN/Creatinine Ratio Glucose Calcium Troponin I < 0.015 < 0.015 B-Natriuretic Peptide Triglycerides 68 Cholesterol 91 LDL Cholesterol 33 VLDL Cholesterol 14 HDL Cholesterol 44 POC Glucose 05/14/21 05/14/21 06:16 11:30 WBC RBC Hgb Hct MCV MCH MCHC RDW Std Deviation RDW Coeff of James Plt Count MPV Immature Gran % (Auto) Neut % (Auto) Lymph % (Auto) [place] % (Auto) Eos % (Auto) Baso % (Auto) Absolute Neuts (auto) Absolute Lymphs (auto) Nucleated RBC % D-Dimer Quant (PE/DVT) Sodium Potassium Chloride Carbon Dioxide Anion Gap BUN Creatinine Estim Creat Clear Calc Est GFR (MDRD) Af Amer Est GFR (MDRD) Non-Af BUN/Creatinine Ratio Glucose Calcium Troponin I B-Natriuretic Peptide Triglycerides Cholesterol LDL Cholesterol VLDL Cholesterol HDL Cholesterol POC Glucose 177 H 174 H Radiography Diagnostic Testing: Radiology Impression Chest X-Ray 05/13/21 18:20 IMPRESSION: 1. Mild pulmonary edema. 2. Perihilar opacities, nonspecific, probably edema related, less likely pneumonia. 3. Right lower lung disease, suboptimal evaluation due to elevated hemidiaphragm. Electronically Signed: Jacy Vasquez MD at 18:59 EDT Tel , Service support , D/C Instructions Discharge Diet: 2000 mg Sodium Diet Discharge Activity: Return to Normal Activity Weight Bearing Status: Weight bearing as tolerated Call your doctor if you observe: Fever of 101 or Higher, Shortness of breath, Swelling in the ankles, Chest pain and Increased palpitations (irregular heartbeat) Meaningful Use Info Meaningful Use Diagnoses (Choose all that apply): None applicable Discharge Plan Admission Admit Date/Time: 05/13/21 20:12 Primary Reason for Your Visit: chest pain Attending Provider: Nona Salcedo Instructions Patient Instructions: ED Chest Pain, Noncardiac Discharge Orders/Prescriptions Prescriptions: Continued fluoxetine 40 MG capsule 40 mg PO DAILY RF: 0 furosemide 40 MG tablet 40 mg PO DAILY RF: 0 hydralazine 10 MG tablet 20 mg GT TID RF: 0 atorvastatin 80 MG tablet 80 mg PO QHS RF: 0 carvedilol 25 MG tablet 25 mg PO BID RF: 0 isosorbide mononitrate 30 MG tablet extended release 24 hr 30 mg PO DAILY RF: 0 clopidogrel 75 MG tablet 75 mg PO DAILY RF: 0 acetaminophen 500 MG tablet 1,000 mg PO BID PRN PRN (Reason: Pain 1-10 Or Fever) RF: 0 pantoprazole 20 MG tablet 20 mg PO DAILY RF: 0 alprazolam 0.5 MG tablet 0.5 mg PO BID RF: 0 trazodone 100 MG tablet 100 mg PO QHS RF: 0 nitroglycerin 0.4 MG tablet, sublingual 0.4 mg SL Q5M PRN (Reason: Chest Pain) RF: 0 buspirone 7.5 MG tablet 7.5 mg PO TID RF: 0 losartan 100 MG tablet 100 mg PO DAILY RF: 0 fluoxetine 20 MG capsule 20 mg PO DAILY RF: 0 finasteride 5 MG tablet 5 mg PO DAILY RF: 0 spironolactone 50 MG tablet 50 mg PO DAILY RF: 0 insulin lispro 100 UNIT/ML insulin pen 8 unit SQ TIDCM RF: 0 insulin detemir U-100 100 UNIT/ML insulin pen 24 unit SQ QHS RF: 0 exenatide microspheres 2 MG/0.65 ML pen injector 0.65 ml SQ SA RF: 0 levofloxacin 750 MG tablet 750 mg PO DAILY Qty: 5 RF: 0 pregabalin [Lyrica] 75 mg Capsule 75 mg PO BID RF: 0 Referrals / Follow Up: SAMM VALENCIA [Other] - Within 2 Weeks Disposition Disposition (needs filled in before D/C Order can be placed): Home, self care Charges/Coding Visit Charges OBSV E&M: 28438 Observation care discharge
--- NOTE | 2021-05-14 12:22 | PHA.DC.MR ---
Pharmacy Service has performed discharge medication reconciliation for this patient. The patient's discharge medication list was reviewed for discrepancies and discrepancies were resolved. Home Medications acetaminophen 1,000 mg PO BID PRN PRN 02/11/21 alprazolam 0.5 mg PO BID 02/11/21 atorvastatin 80 mg PO QHS 02/11/21 buspirone 7.5 mg PO TID 02/11/21 carvedilol 25 mg PO BID 02/11/21 clopidogrel 75 mg PO DAILY 02/11/21 exenatide microspheres 0.65 ml SQ SA 02/11/21 finasteride 5 mg PO DAILY 02/11/21 fluoxetine 20 mg PO DAILY 02/11/21 fluoxetine 40 mg PO DAILY 02/11/21 furosemide 40 mg PO DAILY 02/11/21 hydralazine 20 mg GT TID 02/11/21 insulin detemir U-100 24 unit SQ QHS 02/11/21 insulin lispro 8 unit SQ TIDCM 02/11/21 isosorbide mononitrate 30 mg PO DAILY 02/11/21 losartan 100 mg PO DAILY 02/11/21 nitroglycerin 0.4 mg SL Q5M PRN 02/11/21 pantoprazole 20 mg PO DAILY 02/11/21 spironolactone 50 mg PO DAILY 02/11/21 trazodone 100 mg PO QHS 02/11/21 levofloxacin 750 mg PO DAILY #5 tab 02/16/21 pregabalin [Lyrica] 75 mg PO BID 05/13/21
--- NOTE | 2021-05-14 17:26 | STRESSREP ---
Stress Test Report Pharmacologic myocardial perfusion stress test. 61-year-old man with a history of chest pain. Stress protocol: Resting EKG demonstrates normal sinus rhythm with a rate of 73 bpm normal intervals are noted. Resting blood pressure is 148/92 mmHg. 0.4 mg of regadenoson was infused per usual protocol followed by rapid intravenous saline flush injection continuous EKG monitoring was performed. The maximum heart rate attained was 104 bpm which was 65% of maximum predicted heart rate the maximum workload was 1 metabolic equivalent. At rest there were no ST or T wave changes noted to suggest abnormal flow reserve and at peak infusion nonspecific ST changes were noted which did not meet the criteria for ischemia. No clinical angina was noted. Myocardial perfusion protocol. 14.4 mCi of technetium 99m sestamibi was injected at rest. 0.4 mg of regadenoson was infused per usual protocol. At peak infusion 44.5 mCi of technetium 99m sestamibi was injected stress images were obtained stress and rest images were reconstructed and compared in the short axis vertical long and horizontal long axis. Gated images were also obtained. Perfusion SPECT analysis: Review of the stress images demonstrate normal uptake of tracer noted in all areas of the myocardium. The resting images similarly demonstrate normal uptake of tracer noted in all areas of the myocardium. No areas of reversibility are noted to suggest ischemia and no previous infarct is noted. Gated SPECT analysis: The gated ejection fraction is 72%. Conclusion: Normal pharmacologic myocardial perfusion stress test. Preserved ejection fraction.
== END 2021-05-14 11:49 | disposition home or self-care (01) ==
LOC: ED 20:02 → PCU 20:24
PROVIDERS: Admitting Provider Hospitalist; Emergency Provider Student in an Organized Health Care Education/Training Program; Visit Provider Student in an Organized Health Care Education/Training Program
DX: R07.89 Other chest pain (principal); I25.2 Old myocardial infarction; K21.9 Gastro-esophageal reflux disease without esophagitis; E11.51 Type 2 diabetes mellitus with diabetic peripheral angiopathy without gangrene; I12.9 Hypertensive chronic kidney disease with stage 1 through stage 4 chronic kidney disease, or unspecified chronic kidney disease; I44.0 Atrioventricular block, first degree; J81.1 Chronic pulmonary edema; I25.10 Atherosclerotic heart disease of native coronary artery without angina pectoris; F41.9 Anxiety disorder, unspecified; Z95.5 Presence of coronary angioplasty implant and graft; Z79.899 Other long term (current) drug therapy; Z79.4 Long term (current) use of insulin; Z79.02 Long term (current) use of antithrombotics/antiplatelets; E11.22 Type 2 diabetes mellitus with diabetic chronic kidney disease; N18.31 Chronic kidney disease, stage 3a
CPT/HCPCS: 36415; 71045; 78452; 80048; 80061; 82962; 83880; 84484; 85025; 85379; 93005; 93017; 93306; 96361; 96374; 99218; 99285; A9500; J7040; A4216; G0378; J2785

== ENCOUNTER 2021-05-16 10:37 | Inpatient (IN) | payer MEDICARE, MEDICAID, SELFPAY ==
[2021-05-13 21:51] VITALS: BMI 37.6
[2021-05-16] VITALS (26 sets, daily range): BP systolic 80–157; BP diastolic 39–110; PULSE 77–109; RESP 11–40; TEMP 36.5–39.2; O2SAT 88–100; BMI 39.4; BMI 39.5
--- NOTE | 2021-05-16 10:38 | EKG12_ITS ---
Test Reason : SOB Blood Pressure : / mmHG Vent. Rate : 107 BPM Atrial Rate : 107 BPM P-R Int : 218 ms QRS Dur : 088 ms QT Int : 332 ms P-R-T Axes : 075 026 045 degrees QTc Int : 443 ms Sinus tachycardia with 1st degree A-V block Otherwise normal ECG Confirmed by NOAH JOHNS, DANNIE ([id number]), scientific publications editor SHARAN DOE ([id number]) on 05/19/2021 11:04:44 A M Referred By: PAYTON Confirmed By:CAMILA ZAMORA MD
--- NOTE | 2021-05-16 10:41 | ED.VIS.DYS ---
HPI History of Present Illness Chief Complaint: Shortness of Breath Informant: patient Onset/Context/Timing Onset: Today Context: gradual Timing: Continuous Quality: Positive for Dyspnea on exertion Current Severity: Severe Maximum Severity: Severe Worsened by: Coughing Relieved by: Nothing Associated Symptoms cough Chest Pain: Positive for None Narrative Narrative: Patient is a 61-year-old male medical history significant for coronary vascular disease status post stents, peripheral arterial disease, diabetes, hypertension who presents to the emergency department shortness of breath. Patient started have some shortness of breath overnight. He states it worsened today. Squad was called because of his significant dyspnea. He was placed on a nonrebreather with saturations in the 92% range. He does describe cough and chills. He does not think he is in a fever. He also notes generalized malaise, nausea, and vomiting. Patient was recently hospitalized for chest pain and had a negative stress test. He states he is otherwise been in his normal state of health. [facility] Medical History Amputation of one or more toes CAD (coronary artery disease) Diabetes Hypertension Kidney stones Myocardial infarct PAD (peripheral artery disease) Home Medications acetaminophen 1,000 mg PO BID PRN PRN 02/11/21 [History Last Taken 02/10/21] alprazolam 0.5 mg PO BID 02/11/21 [History Last Taken 02/13/21] atorvastatin 80 mg PO QHS 02/11/21 [History Last Taken 02/12/21] buspirone 7.5 mg PO TID 02/11/21 [History Last Taken 02/13/21] carvedilol 25 mg PO BID 02/11/21 [History Last Taken 02/13/21] clopidogrel 75 mg PO DAILY 02/11/21 [History Last Taken 02/13/21] exenatide microspheres 0.65 ml SQ SA 02/11/21 [History Last Taken 02/08/21] finasteride 5 mg PO DAILY 02/11/21 [History Last Taken 02/13/21] fluoxetine 20 mg PO DAILY 02/11/21 [History Last Taken 02/13/21] fluoxetine 40 mg PO DAILY 02/11/21 [History Last Taken 02/13/21] furosemide 40 mg PO DAILY 02/11/21 [History Last Taken 02/13/21] hydralazine 20 mg GT TID 02/11/21 [History Last Taken 02/13/21] insulin detemir U-100 24 unit SQ QHS 02/11/21 [History Last Taken 02/12/21] insulin lispro 8 unit SQ TIDCM 02/11/21 [History Last Taken 02/12/21] isosorbide mononitrate 30 mg PO DAILY 02/11/21 [History Last Taken 02/13/21] losartan 100 mg PO DAILY 02/11/21 [History Last Taken 02/13/21] nitroglycerin 0.4 mg SL Q5M PRN 02/11/21 [History Last Taken 02/08/21] pantoprazole 20 mg PO DAILY 02/11/21 [History Last Taken 02/13/21] spironolactone 50 mg PO DAILY 02/11/21 [History Last Taken 02/13/21] trazodone 100 mg PO QHS 02/11/21 [History Last Taken 02/13/21] levofloxacin 750 mg PO DAILY #5 tab 02/16/21 [Rx Last Taken Unknown] pregabalin [Lyrica] 75 mg PO BID 05/13/21 [History Last Taken Unknown] Allergy/AdvReac Type Severity Reaction Status Date / Time allopurinol AdvReac Vomiting Verified 05/13/21 16:55 Influenza Virus Vaccines AdvReac Vomiting Verified 05/13/21 16:55 pneumococcal vaccine AdvReac Vomiting Verified 05/13/21 16:55 Family History Other Diabetes Heart disease Surgical History History of coronary artery stent placement Stented coronary artery Social History Smoking Status: Never smoker ROS ROS ED Constitutional Constitutional ED: Reports chills and sweats Eyes Eyes: Denies blurry vision or change in vision ENT ENT ED: Denies ear pain or sore throat Cardiovascular Cardiovascular: Denies chest pain or palpitations Respiratory/Chest Respiratory/Chest: Reports cough, dyspnea and sputum Gastrointestinal Gastrointestinal: Denies abdominal pain, nausea or vomiting Genitourinary Genitourinary ED: Denies dysuria or urinary frequency Musculoskeletal Musculoskeletal: Denies arthralgias or myalgias Integumentary Denies rash Neurologic Neurologic: Denies headache(s) or paresthesias Psychiatric Psychiatric: Denies anxiety or depression Endocrine Endocrinology: Denies polydipsia or polyuria Allergic/Immunologic Allergic/Immunologic ED: Denies urticaria EXAM Physical Exam Const Vital Signs: 05/16/21 10:37 05/16/21 10:38 05/16/21 10:50 Temperature 98.9 F Temperature Source Temporal Pulse Rate 108 H 109 H Respiratory Rate 40 H 32 H Respiratory Effort Labored Respiratory Pattern Tachypnea Tachypnea Blood Pressure 157/110 H Blood Pressure Mean 125 Pulse Ox 88 94 Oxygen Delivery Method Non-Rebreather Non-Rebreather Fraction of Inspired Oxygen (FIO2) 70 05/16/21 11:38 05/16/21 11:46 Temperature 102.5 F H Temperature Source Axillary Pulse Rate 108 H 95 Respiratory Rate 30 H 20 H Respiratory Effort Respiratory Pattern Tachypnea Blood Pressure 123/79 H Blood Pressure Mean 93 Pulse Ox 98 95 Oxygen Delivery Method Bi-pap Fraction of Inspired Oxygen (FIO2) 70 55 Positive well nourished and well developed General Appearance ED: well developed HEENT Reports normocephalic, head/scalp atraumatic and moist mucous membranes Eyes PERRL and EOMs intact bilaterally Neck no lymphadenopathy and supple General: Negative for tenderness Chest Wall inspection of chest normal Resp Auscultation: rales, rhonchi and diminished lung sounds Cardio regular rate, regular rhythm and no murmurs GI normal to inspection, nondistended, normoactive bowel sounds, non-tender and non-distended Palpation: soft; Negative for tender, guarding or rebound tenderness present Back/Spine no CVA tenderness Cervical Spine: Negative for cervical spine tenderness Thoracic Spine / Upper Back: Negative for thoracic spinal tenderness Extremity normal to inspection General Extremety ED: Negative for tenderness Neuro oriented x3 and CN's II-XII intact bilaterally Neuro Narrative: No focal deficits appreciated. Sensorium / Orientation: alert Psych mental status grossly normal Skin no rashes or lesions noted, no wounds and skin turgor normal MDM MDM MDM Narrative Medical decision making narrative: The patient was immediately transitioned to BiPAP on arrival. He did have increasing oxygenation. I obtained a blood gas. His ABG was actually not significantly distorted. His pH was 7.33. His PCO2 was 44. There was no significant diminished bicarb. EKG was obtained. It was sinus rhythm with no acute ischemia. The patient denies chest pain. Patient underwent septic work-up. Chest x-ray reviewed by both myself and the radiologist shows bilateral infiltrates. I do not feel this represents edema. I do feel that this is infectious. Well on BiPAP, he did have improvement of his tachypnea and we are able to slowly wean his oxygen. Patient was covered with broad-spectrum antibiotics. His lactic acid was 2.5 consistent with sepsis. He also has mild acute kidney injury. At this point, the patient will be admitted to the ICU. Impression 1. Bilateral pneumonia 2. Hypoxic respiratory failure 3. Sepsis 4. Acute kidney injury Lab Data Labs: Laboratory Results - last 24 hr 05/16/21 05/16/21 05/16/21 10:50 10:50 10:50 WBC 10.6 RBC 4.32 L Hgb 12.8 L Hct 40.9 MCV 94.7 H MCH 29.6 MCHC 31.3 L RDW Std Deviation 45.8 H RDW Coeff of James 13.2 Plt Count 215 MPV 10.6 Immature Gran % (Auto) 0.600 Neut % (Auto) 88.0 H Lymph % (Auto) 8.7 L Phillips % (Auto) 2.2 Eos % (Auto) 0.3 Baso % (Auto) 0.2 Absolute Neuts (auto) 9.3 H Absolute Lymphs (auto) 0.92 Nucleated RBC % 0 Sodium 139 Potassium 4.7 Chloride 106 Carbon Dioxide 26.0 Anion Gap 7 BUN 41 H Creatinine 1.97 H Estim Creat Clear Calc 40.14 Est GFR (MDRD) Af Amer 45 L Est GFR (MDRD) Non-Af 37 L BUN/Creatinine Ratio 20.8 H Glucose 200 H Lactic Acid 2.5 H* Calcium 9.2 Total Bilirubin 0.60 AST 19 ALT 23 Alkaline Phosphatase 132 H Troponin I < 0.015 B-Natriuretic Peptide Total Protein 7.6 Albumin 3.6 Globulin 4.0 Albumin/Globulin Ratio 0.9 Lipase 145 05/16/21 10:50 WBC RBC Hgb Hct MCV MCH MCHC RDW Std Deviation RDW Coeff of James Plt Count MPV Immature Gran % (Auto) Neut % (Auto) Lymph % (Auto) [place] % (Auto) Eos % (Auto) Baso % (Auto) Absolute Neuts (auto) Absolute Lymphs (auto) Nucleated RBC % Sodium Potassium Chloride Carbon Dioxide Anion Gap BUN Creatinine Estim Creat Clear Calc Est GFR (MDRD) Af Amer Est GFR (MDRD) Non-Af BUN/Creatinine Ratio Glucose Lactic Acid Calcium Total Bilirubin AST ALT Alkaline Phosphatase Troponin I B-Natriuretic Peptide 48.2 Total Protein Albumin Globulin Albumin/Globulin Ratio Lipase ABG Data ABG results: ABG 05/16/21 11:02 Specimen Type ART Sample Site L Radial pH 7.33 L Bicarbonate Actual 23.4 Total CO2 25 Base Excess -2 O2 Saturation 96 O2 % 70 ABG pCO2 44.1 ABG pO2 90 Gabe Test Positive Respiration Rate 12 O2 Delivery Device BiPAP Vent Mode BiLevel POC PEEP 6 Clinical Comments 11/03 12 70 Radiography Diagnostic Testing: Radiology Impression Chest X-Ray 05/16/21 11:02 IMPRESSION: Increasing bilateral pulmonary infiltrates worse in the right hemithorax. Electronically Signed: Den Carver MD at 11:23 EDT , Service support , Critical Care Time Critical Care Time: Yes Critical care time (excluding procedures): 30-74 minutes (40), Discussing w/Patient &/or Family/Small Piece Cutter, Discussing w/Consultants, Arranging Admission or Transfer and Performing Direct Patient Care at Bedside Discharge Plan Triage Chief Complaint: Shortness of Breath ED Provider: Wallace Perez Dx/Rx/DC Orders Prescriptions: No Action fluoxetine 40 MG capsule 40 mg PO DAILY RF: 0 furosemide 40 MG tablet 40 mg PO DAILY RF: 0 hydralazine 10 MG tablet 20 mg GT TID RF: 0 atorvastatin 80 MG tablet 80 mg PO QHS RF: 0 carvedilol 25 MG tablet 25 mg PO BID RF: 0 isosorbide mononitrate 30 MG tablet extended release 24 hr 30 mg PO DAILY RF: 0 clopidogrel 75 MG tablet 75 mg PO DAILY RF: 0 acetaminophen 500 MG tablet 1,000 mg PO BID PRN PRN (Reason: Pain 1-10 Or Fever) RF: 0 pantoprazole 20 MG tablet 20 mg PO DAILY RF: 0 alprazolam 0.5 MG tablet 0.5 mg PO BID RF: 0 trazodone 100 MG tablet 100 mg PO QHS RF: 0 nitroglycerin 0.4 MG tablet, sublingual 0.4 mg SL Q5M PRN (Reason: Chest Pain) RF: 0 buspirone 7.5 MG tablet 7.5 mg PO TID RF: 0 losartan 100 MG tablet 100 mg PO DAILY RF: 0 fluoxetine 20 MG capsule 20 mg PO DAILY RF: 0 finasteride 5 MG tablet 5 mg PO DAILY RF: 0 spironolactone 50 MG tablet 50 mg PO DAILY RF: 0 insulin lispro 100 UNIT/ML insulin pen 8 unit SQ TIDCM RF: 0 insulin detemir U-100 100 UNIT/ML insulin pen 24 unit SQ QHS RF: 0 exenatide microspheres 2 MG/0.65 ML pen injector 0.65 ml SQ SA RF: 0 levofloxacin 750 MG tablet 750 mg PO DAILY Qty: 5 RF: 0 pregabalin [Lyrica] 75 mg Capsule 75 mg PO BID RF: 0
--- NOTE | 2021-05-16 11:02 | RAD_ITS ---
STUDY: X-RAY CHEST REASON FOR EXAM: Male, 61 years old. Sob TECHNIQUE: Single AP portable view of the chest. COMPARISON: Comparison is made with prior examination dated 05/13/2021. FINDINGS: EKG electrodes are seen. Elevation of the right hemidiaphragm. Increasing bilateral pulmonary infiltrates worse in the right upper lobe. There is no demonstrated pleural abnormality. Normal size heart. Normal mediastinum and pat. Normal visualized pulmonary arteries. Normal visualized aortic arch and descending thoracic aorta. There are diffuse degenerative changes of the visualized thoracic spine. Normal visualized ribs, clavicles, and shoulders. There is no demonstrated abnormality of the visualized soft tissue structures of the upper abdomen. RAD/Chest 1 View (Portable) IMPRESSION: Increasing bilateral pulmonary infiltrates worse in the right hemithorax. Electronically Signed: Den Carver MD at 11:23 EDT , Service support ,
[2021-05-16 11:05] LABS: Absolute Lymphocyte Count 0.92 X10^3/uL (0.83-4.51); Absolute Neutrophil Count 9.3 X10^3/uL (2.0-7.7); Basophil# 0.02 X10^3/uL; Basophil% 0.2 % (0-1); Eosinophil# 0.03 X10^3/uL; Eosinophils% 0.3 % (0-5); Hematocrit 40.9 % (40-54); Hemoglobin 12.8 g/dL (13.0-16.5); Lymphocyte # 0.92 X10^3/ul (0.83-4.51); Lymphocyte % 8.7 % (19-41); Mean Corp Hgb Conc 31.3 g/dL (32-36); Mean Corpuscular Hgb 29.6 pg (27.0-32.0); Mean Corpuscular Volume 94.7 fL (80-94); Mean Platelet Vol. 10.6 fl (6.2-12.0); Monocyte# 0.23 X10^3/uL; Monocyte% 2.2 % (0-10); NRBC Flagged by Analyzer 0 % (0-5); Neutrophil # 9.33 X10^3/uL (2.7-7.7); Platelet Count 215 K/mm3 (150-450); RBC Distribution Width CV 13.2 % (11.6-14.6); RBC Distribution Width SD 45.8 fl (35.1-43.9); Red Blood Count 4.32 M/mm3 (4.6-6.2); White Blood Count 10.6 K/mm3 (4.4-11.0)
[2021-05-16 11:05] LABS: Allen Test Positive; Base Excess -2 mmol/L (-2 to +2); Bicarbonate 23.4 mmol/L (22-26); Blood Gas Specimen Type ART; FI02 70; Mode BiLevel; O2 Delivery Device BiPAP; PEEP 6; PO2 90 mmHG (75-100); RR 12; SITE L Radial; SO2 96 % (95-99); Total Carbon Dioxide 25 mmol/L; pCO2 44.1 mmHg (35-45); pH 7.33 (7.35-7.45)
[2021-05-16 11:27] LABS: ALB/GLOB Ratio 0.9 RATIO (0.9-2.4); AST(SGOT) 19 U/L (15-37); Alanine Aminotransfer ALT/SGPT 23 U/L (16-61); Albumin, Serum 3.6 g/dL (3.2-5.0); Alkaline Phosphatase 132 U/L (45-117); Anion Gap 7 (5-15); BUN 41 mg/dL (7-18); BUN/Creat Ratio 20.8 RATIO (10-20); Calcium,Total 9.2 mg/dL (8.5-10.1); Chloride 106 mmol/L (98-107); Creatinine, Serum 1.97 mg/dL (0.70-1.30); EST Glomerular Filtration Rate 37 mL/min (>60); Est Glom Filt Rate - Afr Amer 45 mL/min (>60); Estimated Creatinine Clearance 40.14 ml/min; Glucose 200 mg/dL (74-106); Lipase 145 U/L (73-393); Potassium 4.7 mmol/L (3.5-5.1); Protein, Total 7.6 g/dL (6.4-8.2); Sodium Level 139 mmol/L (136-145)
[2021-05-16 11:29] LABS: BNP,B-Type NATRIURETIC PEPTIDE 48.2 pg/mL (0-100)
[2021-05-16 11:37] LABS: Lactic Acid 2.5 mmol/L (0.4-1.9)
[2021-05-16] MEDS: 0.9% Normal Saline 1,000 ML 999 ML IV (11:50)
--- NOTE | 2021-05-16 11:57 | HP.PCM.HOS_ITS ---
HPI - General HPI Narrative REA HANNA, is a 61 M with an extensive PMH as outlined who was admitted via the ED on 05/16/2021 with a complaint of shortness of breath. He was recently discharged from the hospital on 05/14/2021 after he was admitted for chest tightness; stress test was negative.He started getting short of breath one day ago and this gradually worsened this morning to the point where he called the squad today he was found to be saturating in the 70s. He was placed on a nonrebreather mask and his sats came up to the 90s. He admitted to a cough and chills but denied any fever and admitted to generalized malaise, nausea vomiting. Review of systems otherwise negative. Labs showed WBC of 10.6 with hemoglobin of 12.8 and platelets of 215. Lactic acid was elevated at 2.5 and creatinine was 1.97. Potassium was 4.7 and sodium was 139. Chest x-ray showed increasing bilateral pulmonary infiltrates worse in the right hemithorax. He has been admitted to be managed for acute hypoxic respiratory failure and severe sepsis due to community-acquired pneumonia. Covid test done was negative. [facility] Medical History Amputation of one or more toes CAD (coronary artery disease) Diabetes Hypertension Kidney stones Myocardial infarct PAD (peripheral artery disease) Home Medications acetaminophen 1,000 mg PO BID PRN PRN 02/11/21 [History Last Taken 02/10/21] alprazolam 0.5 mg PO BID 02/11/21 [History Last Taken 02/13/21] atorvastatin 80 mg PO QHS 02/11/21 [History Last Taken 02/12/21] buspirone 7.5 mg PO TID 02/11/21 [History Last Taken 02/13/21] carvedilol 25 mg PO BID 02/11/21 [History Last Taken 02/13/21] clopidogrel 75 mg PO DAILY 02/11/21 [History Last Taken 02/13/21] exenatide microspheres 0.65 ml SQ SA 02/11/21 [History Last Taken 02/08/21] finasteride 5 mg PO DAILY 02/11/21 [History Last Taken 02/13/21] fluoxetine 20 mg PO DAILY 02/11/21 [History Last Taken 02/13/21] fluoxetine 40 mg PO DAILY 02/11/21 [History Last Taken 02/13/21] furosemide 40 mg PO DAILY 02/11/21 [History Last Taken 02/13/21] hydralazine 20 mg GT TID 02/11/21 [History Last Taken 02/13/21] insulin detemir U-100 24 unit SQ QHS 02/11/21 [History Last Taken 02/12/21] insulin lispro 8 unit SQ TIDCM 02/11/21 [History Last Taken 02/12/21] isosorbide mononitrate 30 mg PO DAILY 02/11/21 [History Last Taken 02/13/21] losartan 100 mg PO DAILY 02/11/21 [History Last Taken 02/13/21] nitroglycerin 0.4 mg SL Q5M PRN 02/11/21 [History Last Taken 02/08/21] pantoprazole 20 mg PO DAILY 02/11/21 [History Last Taken 02/13/21] spironolactone 50 mg PO DAILY 02/11/21 [History Last Taken 02/13/21] trazodone 100 mg PO QHS 02/11/21 [History Last Taken 02/13/21] levofloxacin 750 mg PO DAILY #5 tab 02/16/21 [Rx Last Taken Unknown] pregabalin [Lyrica] 75 mg PO BID 05/13/21 [History Last Taken Unknown] Allergy/AdvReac Type Severity Reaction Status Date / Time allopurinol AdvReac Vomiting Verified 05/13/21 16:55 Influenza Virus Vaccines AdvReac Vomiting Verified 05/13/21 16:55 pneumococcal vaccine AdvReac Vomiting Verified 05/13/21 16:55 Family History Other Diabetes Heart disease Surgical History History of coronary artery stent placement Stented coronary artery Social History Smoking Status: Never smoker ROS Constitutional Constitutional: Reports chills, fatigue, malaise and weakness; Denies anorexia, change in weight or fever(s) Eyes Eyes: Denies blurry vision ENT HEENT: Denies abnormal hearing Cardiovascular Cardiovascular: Denies chest pain, claudication, dyspnea on exertion, orthopnea, palpitations or paroxysmal nocturnal dyspnea Respiratory/Chest Respiratory/Chest: Reports cough, dyspnea, productive cough, shortness of breath at rest and shortness of breath with exertion; Denies excessive phlegm production or hemoptysis Gastrointestinal Gastrointestinal: Denies abdominal pain, coffee ground emesis, constipation, diarrhea, loose stools, nausea or vomiting Genitourinary Genitourinary: Denies burning urination, dysuria or urinary frequency Musculoskeletal Musculoskeletal: Denies arthralgias Neurologic Neurologic: Denies confusion Psychiatric Psychiatric: Denies anxiety or depression Endocrine Endocrinology: Denies change in body appearance Hematologic/Lymphatic Hematologic/Lymphatic: Denies anemia Allergic/Immunologic Allergic/Immunologic: Denies asthma Vital Signs Vital Signs Vital Signs: 05/16/21 10:37 05/16/21 10:38 05/16/21 10:50 Temperature 98.9 F Temperature Source Temporal Pulse Rate 108 H 109 H Respiratory Rate 40 H 32 H Respiratory Effort Labored Respiratory Pattern Tachypnea Tachypnea Blood Pressure 157/110 H Blood Pressure Mean 125 Pulse Ox 88 94 Oxygen Delivery Method Non-Rebreather Non-Rebreather Fraction of Inspired Oxygen (FIO2) 70 05/16/21 11:38 05/16/21 11:46 Temperature 102.5 F H Temperature Source Axillary Pulse Rate 108 H 95 Respiratory Rate 30 H 20 H Respiratory Effort Respiratory Pattern Tachypnea Blood Pressure 123/79 H Blood Pressure Mean 93 Pulse Ox 98 95 Oxygen Delivery Method Bi-pap Fraction of Inspired Oxygen (FIO2) 70 55 Weight Weight: 275 lb 2.19 oz Body Mass Index (BMI) 39.4 Physical Exam Const alert and oriented x3 General Appearance: cooperative HEENT normocephalic, head/scalp atraumatic and hearing grossly normal bilaterally Eyes PERRL, EOMs intact bilaterally and conjunctivae normal Neck no lymphadenopathy Resp Resp Narrative: diminished breath sounds bibasally, no wheezes. Bibasal crackle s. On BIPAP Cardio regular rate, regular rhythm, S1 normal heart sound, S2 normal heart sound and no murmurs GI normal to inspection, nondistended, normoactive bowel sounds, soft to palpation, non-tender and non-distended Extremity normal to inspection, full ROM and no clubbing, cyanosis or edema Peripheral Pulses: Yes pulses 2+ throughout Skin no rashes or lesions noted Neuro oriented x3 Sensorium / Orientation: awake and alert Psych affect normal Results Lab / Micro Data Result Diagrams: 05/16/21 10:50 05/16/21 10:50 Labs: Laboratory Results - last 24 hr 05/16/21 05/16/21 05/16/21 10:50 10:50 10:50 WBC 10.6 RBC 4.32 L Hgb 12.8 L Hct 40.9 MCV 94.7 H MCH 29.6 MCHC 31.3 L RDW Std Deviation 45.8 H RDW Coeff of James 13.2 Plt Count 215 MPV 10.6 Immature Gran % (Auto) 0.600 Neut % (Auto) 88.0 H Lymph % (Auto) 8.7 L [place] % (Auto) 2.2 Eos % (Auto) 0.3 Baso % (Auto) 0.2 Absolute Neuts (auto) 9.3 H Absolute Lymphs (auto) 0.92 Nucleated RBC % 0 Sodium 139 Potassium 4.7 Chloride 106 Carbon Dioxide 26.0 Anion Gap 7 BUN 41 H Creatinine 1.97 H Estim Creat Clear Calc 40.14 Est GFR (MDRD) Af Amer 45 L Est GFR (MDRD) Non-Af 37 L BUN/Creatinine Ratio 20.8 H Glucose 200 H Lactic Acid 2.5 H* Calcium 9.2 Total Bilirubin 0.60 AST 19 ALT 23 Alkaline Phosphatase 132 H Troponin I < 0.015 B-Natriuretic Peptide Total Protein 7.6 Albumin 3.6 Globulin 4.0 Albumin/Globulin Ratio 0.9 Lipase 145 05/16/21 10:50 WBC RBC Hgb Hct MCV MCH MCHC RDW Std Deviation RDW Coeff of James Plt Count MPV Immature Gran % (Auto) Neut % (Auto) Lymph % (Auto) [place] % (Auto) Eos % (Auto) Baso % (Auto) Absolute Neuts (auto) Absolute Lymphs (auto) Nucleated RBC % Sodium Potassium Chloride Carbon Dioxide Anion Gap BUN Creatinine Estim Creat Clear Calc Est GFR (MDRD) Af Amer Est GFR (MDRD) Non-Af BUN/Creatinine Ratio Glucose Lactic Acid Calcium Total Bilirubin AST ALT Alkaline Phosphatase Troponin I B-Natriuretic Peptide 48.2 Total Protein Albumin Globulin Albumin/Globulin Ratio Lipase ABG Data ABG results: ABG 05/16/21 11:02 Specimen Type ART Sample Site L Radial pH 7.33 L Bicarbonate Actual 23.4 Total CO2 25 Base Excess -2 O2 Saturation 96 O2 % 70 ABG pCO2 44.1 ABG pO2 90 Gabe Test Positive Respiration Rate 12 O2 Delivery Device BiPAP Vent Mode BiLevel POC PEEP 6 Clinical Comments 11/03 12 70 Radiology Impression Chest X-Ray 05/16/21 11:02 IMPRESSION: Increasing bilateral pulmonary infiltrates worse in the right hemithorax. Electronically Signed: Den Carver MD at 11:23 EDT , Service support , Assessment & Plan Assessment/Plan (1) Severe sepsis: (2) Pneumonia: QUALIFIERS: Laterality: right Lung location: lower lobe of lung Pneumonia type: due to unspecified organism Qualified Code(s): J18.9 - Pneumonia, unspecified organism (3) CELESTE (acute kidney injury): (4) Acute respiratory failure with hypoxia: PLAN: #Acute hypoxic respiratory failure due to community acquired pneumonia * Admit to ICU as he is on BiPAP and o/a of sepsis * Titrate oxygen to maintain saturation above 90%. * Get blood cultures and sputum cultures. * IV vancomycin and zosyn. urine for strep and legionella * Consult pulmonology * Breathing treatments of bronchodilators. * #Severe sepsis due to pneumonia: As above. Trend lactic acid and hydrate with IVF #Community-acquired pneumonia: As above #Type 2 diabetes mellitus: On Lantus 24 units daily. Insulin sliding scale. Accu-Cheks AC at bedtime. #Hypertension: On carvedilol. Hold carvedilol as BP is running low #CAD s/p stents: On carvedilol, Imdur and Plavix as well as statin #Anxiety and depression: On Xanax, BuSpar, Prozac and trazodone DVT prophylaxis:lovenox CODE STATUS: Full code * Patient and counseled about difference from full code, DNR CCA and DNR CCA. Patient elects to be full code. Total [id number] time 17 minutes. Charges/Coding Visit Charges Inpatient E&M: 70513 Init Hosp L3 Procedures Hospitalists Procedures: 79848 Advncd Care Plan 30 Min
--- NOTE | 2021-05-16 12:01 | NURSING ---
DR LC BEARD
--- NOTE | 2021-05-16 12:07 | NURSING ---
ICU [facility] RESP FAILURE, SEPSIS
[2021-05-16] MEDS: Acetaminophen 500 MG Tablet 1000 MG PO (12:26)
--- NOTE | 2021-05-16 13:04 | NURSING ---
ICU 8
--- NOTE | 2021-05-16 13:24 | PCM.CONS.GEN ---
Assessment & Plan Assessment/Plan (1) Acute respiratory failure with hypoxia: (2) Severe sepsis: PLAN: severe sepsis with fever, CELESTE on CKD, lactic acidosis, tachycardia, leukocytosis due to CAP - not producing sputum. Covid neg, has completed covid series. UAgs pending. Agree with empiric vanc/zosyn for now. Will follow, thank you (3) CELESTE (acute kidney injury): HPI Consult Data Date of Consult: 05/16/21 HPI Narrative HPI Narrative: REA HANNA, is a 61 M who presented to ED this Am with sudden onset fever, chills, dyspnea, cough. No sputum. No aches. Mild nausea. Recently admitted with chest pain. No recent abx. Has completed covid series. No sick contacts. No change in taste or smell. Found to have CELESTE on CKD, sepsis, hypoxia, put on bipap. Started on vanc/zosyn, being admitted to icu. Full ROS performed and neg except as noted above. FORMERLY [facility], [facility]–1983 Medical History Amputation of one or more toes CAD (coronary artery disease) Diabetes Hypertension Kidney stones Myocardial infarct PAD (peripheral artery disease) Home Medications acetaminophen 1,000 mg PO BID PRN PRN 02/11/21 [History Last Taken 02/10/21] alprazolam 0.5 mg PO BID 02/11/21 [History Last Taken 02/13/21] atorvastatin 80 mg PO QHS 02/11/21 [History Last Taken 02/12/21] buspirone 7.5 mg PO TID 02/11/21 [History Last Taken 02/13/21] carvedilol 25 mg PO BID 02/11/21 [History Last Taken 02/13/21] clopidogrel 75 mg PO DAILY 02/11/21 [History Last Taken 02/13/21] exenatide microspheres 0.65 ml SQ SA 02/11/21 [History Last Taken 02/08/21] finasteride 5 mg PO DAILY 02/11/21 [History Last Taken 02/13/21] fluoxetine 20 mg PO DAILY 02/11/21 [History Last Taken 02/13/21] fluoxetine 40 mg PO DAILY 02/11/21 [History Last Taken 02/13/21] furosemide 40 mg PO DAILY 02/11/21 [History Last Taken 02/13/21] hydralazine 20 mg GT TID 02/11/21 [History Last Taken 02/13/21] insulin detemir U-100 24 unit SQ QHS 02/11/21 [History Last Taken 02/12/21] insulin lispro 8 unit SQ TIDCM 02/11/21 [History Last Taken 02/12/21] isosorbide mononitrate 30 mg PO DAILY 02/11/21 [History Last Taken 02/13/21] losartan 100 mg PO DAILY 02/11/21 [History Last Taken 02/13/21] nitroglycerin 0.4 mg SL Q5M PRN 02/11/21 [History Last Taken 02/08/21] pantoprazole 20 mg PO DAILY 02/11/21 [History Last Taken 02/13/21] spironolactone 50 mg PO DAILY 02/11/21 [History Last Taken 02/13/21] trazodone 100 mg PO QHS 02/11/21 [History Last Taken 02/13/21] levofloxacin 750 mg PO DAILY #5 tab 02/16/21 [Rx Last Taken Unknown] pregabalin [Lyrica] 75 mg PO BID 05/13/21 [History Last Taken Unknown] Allergy/AdvReac Type Severity Reaction Status Date / Time allopurinol AdvReac Vomiting Verified 05/13/21 16:55 Influenza Virus Vaccines AdvReac Vomiting Verified 05/13/21 16:55 pneumococcal vaccine AdvReac Vomiting Verified 05/13/21 16:55 Family History Other Diabetes Heart disease Surgical History History of coronary artery stent placement Stented coronary artery Social History Smoking Status: Never smoker Physical Exam Const alert and oriented x3 Constitutional Narrative: ill appearing General Appearance: cooperative HEENT normocephalic and head/scalp atraumatic Eyes PERRL and EOMs intact bilaterally Neck supple and No nodes Resp clear to auscultation bilaterally Resp Narrative: diminished in bases Cardio Rate: tachycardic GI normal to inspection, nondistended, normoactive bowel sounds Extremity no clubbing, cyanosis or edema Skin no rashes or lesions noted Neuro CN's II-XII intact bilaterally Lab / Micro Data Result Diagrams: 05/16/21 10:50 05/16/21 10:50 Labs: Laboratory Results - last 24 hr 05/16/21 05/16/21 05/16/21 10:50 10:50 10:50 WBC 10.6 RBC 4.32 L Hgb 12.8 L Hct 40.9 MCV 94.7 H MCH 29.6 MCHC 31.3 L RDW Std Deviation 45.8 H RDW Coeff of James 13.2 Plt Count 215 MPV 10.6 Immature Gran % (Auto) 0.600 Neut % (Auto) 88.0 H Lymph % (Auto) 8.7 L [place] % (Auto) 2.2 Eos % (Auto) 0.3 Baso % (Auto) 0.2 Absolute Neuts (auto) 9.3 H Absolute Lymphs (auto) 0.92 Nucleated RBC % 0 Sodium 139 Potassium 4.7 Chloride 106 Carbon Dioxide 26.0 Anion Gap 7 BUN 41 H Creatinine 1.97 H Estim Creat Clear Calc 40.14 Est GFR (MDRD) Af Amer 45 L Est GFR (MDRD) Non-Af 37 L BUN/Creatinine Ratio 20.8 H Glucose 200 H Lactic Acid 2.5 H* Calcium 9.2 Total Bilirubin 0.60 AST 19 ALT 23 Alkaline Phosphatase 132 H Troponin I < 0.015 B-Natriuretic Peptide Total Protein 7.6 Albumin 3.6 Globulin 4.0 Albumin/Globulin Ratio 0.9 Lipase 145 05/16/21 10:50 WBC RBC Hgb Hct MCV MCH MCHC RDW Std Deviation RDW Coeff of James Plt Count MPV Immature Gran % (Auto) Neut % (Auto) Lymph % (Auto) [place] % (Auto) Eos % (Auto) Baso % (Auto) Absolute Neuts (auto) Absolute Lymphs (auto) Nucleated RBC % Sodium Potassium Chloride Carbon Dioxide Anion Gap BUN Creatinine Estim Creat Clear Calc Est GFR (MDRD) Af Amer Est GFR (MDRD) Non-Af BUN/Creatinine Ratio Glucose Lactic Acid Calcium Total Bilirubin AST ALT Alkaline Phosphatase Troponin I B-Natriuretic Peptide 48.2 Total Protein Albumin Globulin Albumin/Globulin Ratio Lipase Micro: Microbiology 05/16/21 11:25 SARS-CoV-2 Antigen (Rapid) - Final Mucosa - Nose ABG Data ABG results: ABG 05/16/21 11:02 Specimen Type ART Sample Site L Radial pH 7.33 L Bicarbonate Actual 23.4 Total CO2 25 Base Excess -2 O2 Saturation 96 O2 % 70 ABG pCO2 44.1 ABG pO2 90 Gabe Test Positive Respiration Rate 12 O2 Delivery Device BiPAP Vent Mode BiLevel POC PEEP 6 Clinical Comments 11/03 12 70 Radiology Impression Chest X-Ray 05/16/21 11:02 IMPRESSION: Increasing bilateral pulmonary infiltrates worse in the right hemithorax. Electronically Signed: Den Carver MD at 11:23 EDT , Service support ,
--- NOTE | 2021-05-16 14:18 | EX.PCM.CONCC ---
Assessment & Plan Assessment/Plan (1) Acute respiratory failure with hypoxia: (2) Severe sepsis: PLAN: RECOMMENDATIONS: 1. Continue supplemental IV fluid hydration. 2. Wean supplemental oxygen to maintain saturations at or above 90%. 3. Continue broad-spectrum antimicrobials. 4. Check strep and urine Legionella antigens along with MRSA screen. IMPRESSIONS: 1. Severe sepsis Clinical and radiographic concern for underlying pulmonary infectious etiology. The patient has been weaned from noninvasive positive pressure ventilatory support at this time. Given tenuous hemodynamics, I would recommend that he receive sepsis fluids at 30 cc/kg. Agree with broad-spectrum antimicrobials, per infectious diseases recommendations. Check strep and urine Legionella antigens along with MRSA screen. Wean supplemental oxygen to maintain saturations at or above 90%. 2. Acute hypoxemic respiratory failure Likely related to underlying pneumonia, as noted above. Continue to wean FiO2 to maintain saturations at or above 90%. If the patient is able to expectorate any sputum, will send for culture. 3. Acute on chronic kidney disease Most likely prerenal in etiology. Anticipate improvement with volume expansion. Continue to monitor urine output for now. No current indication for renal replacement therapy. 4. History of coronary artery disease/diabetes mellitus/hypertension/anxiety/depression Complicates care, management, recovery and prognosis. Continue home medications as indicated. This note was generated with [employer] dictation software. It may contain incorrect words, spelling, and punctuation that were not noted in checking the note before signing. HPI Consult Data Date of Consult: 05/17/21 HPI Narrative Reason for Consultation: Acute respiratory failure, severe sepsis HPI Narrative: The patient is a 61-year-old male, with a history as outlined below, who presented to the emergency department with shortness of breath and hypoxemia. The patient was just discharged from the hospital 2 days ago after presenting with chest tightness. The patient had a stress test which was negative for evidence of ischemia. Surface echocardiogram completed on May 14 revealed normal LV size and function with an ejection fraction of 60%. The patient reported that his shortness of breath initially began over the last 24 hours. He stated that he was checking his oxygen saturations at home and that they were reading in the mid 80s. He does have a cough, but has been unable to produce any sputum. He denies a history of venous thromboembolic disease. On presentation to the emergency department, the patient was noted to be febrile, tachycardic and tachypneic. He did have several documented blood pressures in the emergency department with systolics in the 90s. Laboratory evaluation revealed a normal white blood cell count. Chemistry profile was notable for a creatinine of 1.97. Lactate was elevated to 2.5. Troponin was negative. Chest x-ray revealed bilateral infiltrates. Rapid coronavirus antigen testing was negative. The patient was initially placed on BiPAP on arrival to the ED. The patient received supplemental IV fluids along with empiric antimicrobials. He was subsequently admitted to the medical intensive care unit for further management. [facility] Medical History Amputation of one or more toes CAD (coronary artery disease) Diabetes Hypertension Kidney stones Myocardial infarct PAD (peripheral artery disease) Home Medications acetaminophen 1,000 mg PO BID PRN PRN 02/11/21 [History Last Taken 02/10/21] alprazolam 0.5 mg PO BID 02/11/21 [History Last Taken 02/13/21] atorvastatin 80 mg PO QHS 02/11/21 [History Last Taken 02/12/21] buspirone 7.5 mg PO TID 02/11/21 [History Last Taken 02/13/21] carvedilol 25 mg PO BID 02/11/21 [History Last Taken 02/13/21] clopidogrel 75 mg PO DAILY 02/11/21 [History Last Taken 02/13/21] exenatide microspheres 0.65 ml SQ SA 02/11/21 [History Last Taken 02/08/21] finasteride 5 mg PO DAILY 02/11/21 [History Last Taken 02/13/21] fluoxetine 20 mg PO DAILY 02/11/21 [History Last Taken 02/13/21] fluoxetine 40 mg PO DAILY 02/11/21 [History Last Taken 02/13/21] furosemide 40 mg PO DAILY 02/11/21 [History Last Taken 02/13/21] hydralazine 20 mg GT TID 02/11/21 [History Last Taken 02/13/21] insulin detemir U-100 24 unit SQ QHS 02/11/21 [History Last Taken 02/12/21] insulin lispro 8 unit SQ TIDCM 02/11/21 [History Last Taken 02/12/21] isosorbide mononitrate 30 mg PO DAILY 02/11/21 [History Last Taken 02/13/21] losartan 100 mg PO DAILY 02/11/21 [History Last Taken 02/13/21] nitroglycerin 0.4 mg SL Q5M PRN 02/11/21 [History Last Taken 02/08/21] pantoprazole 20 mg PO DAILY 02/11/21 [History Last Taken 02/13/21] spironolactone 50 mg PO DAILY 02/11/21 [History Last Taken 02/13/21] trazodone 100 mg PO QHS 02/11/21 [History Last Taken 02/13/21] levofloxacin 750 mg PO DAILY #5 tab 02/16/21 [Rx Last Taken Unknown] pregabalin [Lyrica] 75 mg PO BID 05/13/21 [History Last Taken Unknown] Allergy/AdvReac Type Severity Reaction Status Date / Time allopurinol AdvReac Vomiting Verified 05/13/21 16:55 Influenza Virus Vaccines AdvReac Vomiting Verified 05/13/21 16:55 pneumococcal vaccine AdvReac Vomiting Verified 05/13/21 16:55 Family History Other Diabetes Heart disease Surgical History History of coronary artery stent placement Stented coronary artery Social History Smoking Status: Never smoker ROS Constitutional Constitutional: Reports fever(s) and malaise Eyes Eyes: Denies blurry vision or change in vision ENT HEENT: Denies dizziness or headache(s) Cardiovascular Cardiovascular: Reports dyspnea; Denies chest pain Respiratory/Chest Respiratory/Chest: Reports cough and dyspnea Gastrointestinal Gastrointestinal: Denies abdominal pain, diarrhea, nausea or vomiting Genitourinary Genitourinary: Denies difficulty urinating Musculoskeletal Musculoskeletal: Denies arthralgias or back pain Integumentary Integumentary: Denies lesions, rash or skin ulcer Neurologic Neurologic: Denies abnormal gait, abnormal speech or confusion Psychiatric Psychiatric: Denies anxiety or depression Endocrine Endocrinology: Reports fatigue Hematologic/Lymphatic Hematologic/Lymphatic: Denies easy bleeding or easy bruising Physical Exam Const alert and oriented x3 General Appearance: cooperative and ill appearing Nutritional Appearance: obese HEENT normocephalic and head/scalp atraumatic Eyes PERRL, EOMs intact bilaterally and conjunctivae normal Neck supple General: trachea midline Resp Effort and Inspection: tachypneic Auscultation: rhonchi and diminished lung sounds Cardio S1 normal heart sound and S2 normal heart sound Rate: tachycardic GI normal to inspection, nondistended, normoactive bowel sounds Extremity no clubbing, cyanosis or edema Skin no rashes or lesions noted Neuro CN's II-XII intact bilaterally, moves all extremities and no focal motor deficits Psych cooperative and affect normal Lab / Micro Data Result Diagrams: 05/16/21 10:50 05/16/21 10:50 Labs: Laboratory Results - last 24 hr 05/16/21 05/16/21 05/16/21 10:50 10:50 10:50 WBC 10.6 RBC 4.32 L Hgb 12.8 L Hct 40.9 MCV 94.7 H MCH 29.6 MCHC 31.3 L RDW Std Deviation 45.8 H RDW Coeff of James 13.2 Plt Count 215 MPV 10.6 Immature Gran % (Auto) 0.600 Neut % (Auto) 88.0 H Lymph % (Auto) 8.7 L [place] % (Auto) 2.2 Eos % (Auto) 0.3 Baso % (Auto) 0.2 Absolute Neuts (auto) 9.3 H Absolute Lymphs (auto) 0.92 Nucleated RBC % 0 Sodium 139 Potassium 4.7 Chloride 106 Carbon Dioxide 26.0 Anion Gap 7 BUN 41 H Creatinine 1.97 H Estim Creat Clear Calc 40.14 Est GFR (MDRD) Af Amer 45 L Est GFR (MDRD) Non-Af 37 L BUN/Creatinine Ratio 20.8 H Glucose 200 H Lactic Acid 2.5 H* Calcium 9.2 Total Bilirubin 0.60 AST 19 ALT 23 Alkaline Phosphatase 132 H Troponin I < 0.015 B-Natriuretic Peptide Total Protein 7.6 Albumin 3.6 Globulin 4.0 Albumin/Globulin Ratio 0.9 Lipase 145 05/16/21 10:50 WBC RBC Hgb Hct MCV MCH MCHC RDW Std Deviation RDW Coeff of James Plt Count MPV Immature Gran % (Auto) Neut % (Auto) Lymph % (Auto) [place] % (Auto) Eos % (Auto) Baso % (Auto) Absolute Neuts (auto) Absolute Lymphs (auto) Nucleated RBC % Sodium Potassium Chloride Carbon Dioxide Anion Gap BUN Creatinine Estim Creat Clear Calc Est GFR (MDRD) Af Amer Est GFR (MDRD) Non-Af BUN/Creatinine Ratio Glucose Lactic Acid Calcium Total Bilirubin AST ALT Alkaline Phosphatase Troponin I B-Natriuretic Peptide 48.2 Total Protein Albumin Globulin Albumin/Globulin Ratio Lipase Micro: Microbiology 05/16/21 11:25 SARS-CoV-2 Antigen (Rapid) - Final Mucosa - Nose ABG Data ABG results: ABG 05/16/21 11:02 Specimen Type ART Sample Site L Radial pH 7.33 L Bicarbonate Actual 23.4 Total CO2 25 Base Excess -2 O2 Saturation 96 O2 % 70 ABG pCO2 44.1 ABG pO2 90 Gabe Test Positive Respiration Rate 12 O2 Delivery Device BiPAP Vent Mode BiLevel POC PEEP 6 Clinical Comments 11/03 12 70 Radiology Impression Chest X-Ray 05/16/21 11:02 IMPRESSION: Increasing bilateral pulmonary infiltrates worse in the right hemithorax. Electronically Signed: Den Carver MD at 11:23 EDT , Service support , Charges/Coding Visit Charges Inpatient E&M: 77161 Init Hosp L3
[2021-05-16 14:59] LABS: Reflex Lactate? Y
--- NOTE | 2021-05-16 15:16 | PHA.PHARE_ITS ---
Consult Pharmacy has been consulted to manage selected antiobiotic: Vancomycin Type of Consult: New start Suspected Infection: Pneumonia Labs: Sodium 139 mmol/L (136-145) 05/16/21 10:50 Potassium 4.7 mmol/L (3.5-5.1) 05/16/21 10:50 Chloride 106 mmol/L (98-107) 05/16/21 10:50 Carbon Dioxide 26.0 mmol/L (21.0-32.0) 05/16/21 10:50 Anion Gap 7 (5-15) 05/16/21 10:50 BUN 41 mg/dL (7-18) H 05/16/21 10:50 Creatinine 1.97 mg/dL (0.70-1.30) H 05/16/21 10:50 Est GFR (MDRD) Af Amer 45 mL/min (>60) L 05/16/21 10:50 Est GFR (MDRD) Non-Af 37 mL/min (>60) L 05/16/21 10:50 BUN/Creatinine Ratio 20.8 RATIO (10-20) H 05/16/21 10:50 Glucose 200 mg/dL (74-106) H 05/16/21 10:50 Microbiology: Microbiology 05/16/21 11:25 Mucosa - Nose SARS-CoV-2 Antigen (Rapid) - Final Weight used for dosin kg Estimated Creatinine Clearance: 51mls/min Goal Trough: 15-20 mcg/mL Pharmacy Plan for Drug Dosing: NEW START IV VANCOMYCIN Consulting Physician: Denisse Indication: Pneumonia, Sepsis Goal Trough: 15-20 SrCr: 1.97 CrCl: 51.54 (using an adjusted body weight of 93.7kg) Comments: Vancomcyin Dose: pt received a 1750mg dose of Vancomycin in the ER 05/16/21 at 1227. Based on pts weight and renal function, recommend an initial dose of Vanco mcyin 1250mg IV q12h. Starting 05/17/21 at midnight. Trough level before the 4th total dose Pending Level: 05/17/21 at 2330 Pharmacy Service will continue to monitor and adjust dosing as required. Follow-Up Labs: Trough Vancomycin - 05/17/21 at 2330
[2021-05-16] MEDS: 0.9% Normal Saline 1,000 ML 150 ML IV ×2 (15:42→22:45)
--- NOTE | 2021-05-16 16:20 | CASEMGMT ---
RN LIZETT RECHECKER CM to room to meet with patient for initial transition planning/care coordination assessment. ALICE PHOENIX introduced self and role at [facility]. Pt voices understanding and consents to assessment at this time. Pt resting in bed in no distress at this time. Pt is A/O at this time and answers all questions appropriately. Care providers, pharmacy, and demographics verified/updated at this time. PCP: Dr Charles Rizo @ [facility] Specialists: Dr Fernie Jones @ [facility]--cardiology, Nephrolgist @ [facility] (doesn't remember name) Preferred Pharmacy: [email or web address] [place], [place] [facility] [facility], [facility] Community Plan/[facility] Prescription Benefit: Yes Living Will/HPOA: Does not have LW or Healthcare POA. He states he would like to complete paperwork for this and states he would like his sig other, She, to be his POA. Will notify SW pt would like to complete these. Pt provided w/emergency services director Rac Card w/# to contact to complete as an OP if SW is unable to meet with him prior to discharge. LNOK: Has a son who he has not seen in 4-5 years. Sig Other is She, Living Arrangements: Lives w/She in one-story apt w/no steps to enter. Independent w/ADL's. Pt/ share home mgmt tasks. States he and She have been together for 5 yrs and states I love her dearly. Transportation: She DME: States has the following DME: shower chair, cane, CPAP, walker, Cane, pulse ox, functioning glucometer w/supplies, motorized scooter. Has O2 @ 2 L/M PRN when pulse ox goes below 88% and he thinks it is through [employer]. Call placed to [employer] and they state they do not provide oxygen for pt. Pt states She would have this info. Call placed to her and she states O2 is thru [employer], Pt has concentrator and portability and she can bring in portable O2 tank in @ discharge for pt to go home on. Pt states no need for further DME at this time. HHC/SNF: Hx of both SNF and HHC, but pt does not remember name of HHC. Pt wishes to return home and may be agreeable to HHC if it is recommended. He has no concerns with going home at time of discharge. CM to follow for increase in home oxygen needs and any further discharge planning/needs. Pt voices no further concerns/needs at this time. Advised pt to ask for CM if any further questions/concerns/needs arise. Voices understanding. PLAN: Home w/support of signif other and discharge plans in place. Pt may need more Home O2 @ d/c than pt currently using. Green sheet placed on chart w/instructions for new script to be faxed to [facility] if more than 2 L/M PRN O2 is needed. Follow for possible need of HHC. PT/OT evals pending. Zelalem HECKN RN CM
[2021-05-16 16:41] LABS: Bedside Glucose 224 mg/dL (70-110)
[2021-05-16 16:58] LABS: M R Staph aureus DNA By PCR Negative (Negative); Probe Check PASS; Specimen Processing Control PASS
[2021-05-16] MEDS: Insulin Lispro 100 UNIT/ML INSULN.PEN SC ×2 (17:41→22:50)
[2021-05-16] MEDS: Insulin Lispro 100 UNIT/ML INSULN.PEN 8 UNIT SC (17:41)
[2021-05-16] MEDS: 0.9% Saline Lock 10 ML Syringe IV (22:29)
[2021-05-16] MEDS: traZODone 100 MG Tablet PO (22:45)
[2021-05-16] MEDS: Atorvastatin Calcium 80 MG Tablet PO (22:45)
[2021-05-16] MEDS: hydrALAZINE 10 MG Tablet 20 MG PO (22:45)
[2021-05-16] MEDS: busPIRone 15 MG TABLET 7.5 MG PO (22:45)
[2021-05-16] MEDS: Carvedilol 25 MG Tablet PO (22:49)
[2021-05-16 23:00] LABS: Bedside Glucose 261 mg/dL (70-110)
[2021-05-16] MEDS: Pregabalin 75 MG Capsule PO (23:28)
[2021-05-16] MEDS: ALPRAZolam 0.5 MG Tablet PO (23:28)
[2021-05-17] VITALS (18 sets, daily range): BP systolic 117–160; BP diastolic 60–95; PULSE 79–102; RESP 12–28; TEMP 36.9–37.2; O2SAT 94–99
[2021-05-17] MEDS: busPIRone 15 MG TABLET 7.5 MG PO ×3 (05:38→22:18)
[2021-05-17] MEDS: hydrALAZINE 10 MG Tablet 20 MG PO ×3 (05:38→22:18)
[2021-05-17 06:24] LABS: Absolute Neutrophil Count 20.7 X10^3/uL (2.0-7.7); Basophil# 0.04 X10^3/uL; Basophil% 0.2 % (0-1); Eosinophil# 0.02 X10^3/uL; Eosinophils% 0.1 % (0-5); Hematocrit 32.1 % (40-54); Hemoglobin 10.2 g/dL (13.0-16.5); Lymphocyte % 6.3 % (19-41); Mean Corp Hgb Conc 31.8 g/dL (32-36); Mean Corpuscular Hgb 29.7 pg (27.0-32.0); Mean Corpuscular Volume 93.3 fL (80-94); Mean Platelet Vol. 10.8 fl (6.2-12.0); Monocyte# 1.34 X10^3/uL; Monocyte% 5.6 % (0-10); NRBC Flagged by Analyzer 0 % (0-5); Neutrophil % 86.7 % (47-70); POSITIVE DIFFERENTIAL YES; POSITIVE MORPHOLOGY YES; Platelet Count 167 K/mm3 (150-450); RBC Distribution Width CV 13.4 % (11.6-14.6); RBC Distribution Width SD 45.4 fl (35.1-43.9); Red Blood Count 3.44 M/mm3 (4.6-6.2); White Blood Count 23.9 K/mm3 (4.4-11.0)
[2021-05-17 06:27] LABS: Differential Indicated SCAN CRITERIA MET
[2021-05-17 06:49] LABS: Anion Gap 6 (5-15); BUN 26 mg/dL (7-18); BUN/Creat Ratio 20.5 RATIO (10-20); Calcium,Total 8.3 mg/dL (8.5-10.1); Chloride 115 mmol/L (98-107); Creatinine, Serum 1.27 mg/dL (0.70-1.30); EST Glomerular Filtration Rate 61 mL/min (>60); Est Glom Filt Rate - Afr Amer 74 mL/min (>60); Estimated Creatinine Clearance 62.27 ml/min; Glucose 133 mg/dL (74-106); Potassium 4.3 mmol/L (3.5-5.1); Sodium Level 142 mmol/L (136-145)
[2021-05-17 07:31] LABS: Bedside Glucose 137 mg/dL (70-110)
[2021-05-17] MEDS: 0.9% Saline Lock 10 ML Syringe IV ×2 (07:52→23:54)
--- NOTE | 2021-05-17 08:02 | PN.HOSP_ITS ---
Subjective Subjective Patient seen and examined. He feels much better today,a nd is on 3L of oxygen by nasal canula. He was transferred out of the ICU to [facility] yesterday. Review of symptoms otherwise negative. Objective Data Objective Data Vital Signs: Vital Signs Temp Pulse Resp BP Pulse Ox 98.7 F 96 26 H 160/95 H 97 05/17/21 05:33 05/17/21 05:38 05/17/21 05:34 05/17/21 05:33 05/17/21 07:14 Oxygen Flow Rate (L/min) 2 Oxygen Delivery Method Nasal Cannula Weight: 275 lb 6.4 oz Body Mass Index (BMI) 39.5 Intake & Output: Intake and Output for Last 24 Hours 05/15/21 05/16/21 05/17/21 23:59 23:59 23:59 Intake Total 5493.75 / 5693.75 1970.0 / 1970.0 Output Total 750 / 1350 1200 / 1200 Balance 4743.75 / 4343.75 770.0 / 770.0 Lab / Micro Data Result Diagrams: 05/17/21 05:58 05/17/21 05:58 Labs: Laboratory Results - last 24 hr 05/16/21 05/16/21 05/16/21 10:50 10:50 10:50 WBC 10.6 RBC 4.32 L Hgb 12.8 L Hct 40.9 MCV 94.7 H MCH 29.6 MCHC 31.3 L RDW Std Deviation 45.8 H RDW Coeff of James 13.2 Plt Count 215 MPV 10.6 Immature Gran % (Auto) 0.600 Neut % (Auto) 88.0 H Lymph % (Auto) 8.7 L [facility] % (Auto) 2.2 Eos % (Auto) 0.3 Baso % (Auto) 0.2 Absolute Neuts (auto) 9.3 H Absolute Lymphs (auto) 0.92 Nucleated RBC % 0 Sodium 139 Potassium 4.7 Chloride 106 Carbon Dioxide 26.0 Anion Gap 7 BUN 41 H Creatinine 1.97 H Estim Creat Clear Calc 40.14 Est GFR (MDRD) Af Amer 45 L Est GFR (MDRD) Non-Af 37 L BUN/Creatinine Ratio 20.8 H Glucose 200 H Lactic Acid 2.5 H* Calcium 9.2 Total Bilirubin 0.60 AST 19 ALT 23 Alkaline Phosphatase 132 H Troponin I < 0.015 B-Natriuretic Peptide Total Protein 7.6 Albumin 3.6 Globulin 4.0 Albumin/Globulin Ratio 0.9 Lipase 145 MRSA (PCR) POC Glucose 05/16/21 05/16/21 05/16/21 10:50 15:05 15:05 WBC RBC Hgb Hct MCV MCH MCHC RDW Std Deviation RDW Coeff of James Plt Count MPV Immature Gran % (Auto) Neut % (Auto) Lymph % (Auto) [facility] % (Auto) Eos % (Auto) Baso % (Auto) Absolute Neuts (auto) Absolute Lymphs (auto) Nucleated RBC % Sodium Potassium Chloride Carbon Dioxide Anion Gap BUN Creatinine Estim Creat Clear Calc Est GFR (MDRD) Af Amer Est GFR (MDRD) Non-Af BUN/Creatinine Ratio Glucose Lactic Acid 1.0 Calcium Total Bilirubin AST ALT Alkaline Phosphatase Troponin I 0.042 B-Natriuretic Peptide 48.2 Total Protein Albumin Globulin Albumin/Globulin Ratio Lipase MRSA (PCR) POC Glucose 05/16/21 05/16/21 05/16/21 15:20 16:35 17:50 WBC RBC Hgb Hct MCV MCH MCHC RDW Std Deviation RDW Coeff of James Plt Count MPV Immature Gran % (Auto) Neut % (Auto) Lymph % (Auto) [facility] % (Auto) Eos % (Auto) Baso % (Auto) Absolute Neuts (auto) Absolute Lymphs (auto) Nucleated RBC % Sodium Potassium Chloride Carbon Dioxide Anion Gap BUN Creatinine Estim Creat Clear Calc Est GFR (MDRD) Af Amer Est GFR (MDRD) Non-Af BUN/Creatinine Ratio Glucose Lactic Acid Calcium Total Bilirubin AST ALT Alkaline Phosphatase Troponin I 0.038 B-Natriuretic Peptide Total Protein Albumin Globulin Albumin/Globulin Ratio Lipase MRSA (PCR) Negative POC Glucose 224 H 05/16/21 05/17/21 05/17/21 22:42 05:58 05:58 WBC 23.9 H RBC 3.44 L Hgb 10.2 L Hct 32.1 L MCV 93.3 MCH 29.7 MCHC 31.8 L RDW Std Deviation 45.4 H RDW Coeff of James 13.4 Plt Count 167 MPV 10.8 Immature Gran % (Auto) 1.100 H Neut % (Auto) 86.7 H Lymph % (Auto) 6.3 L Ascension % (Auto) 5.6 Eos % (Auto) 0.1 Baso % (Auto) 0.2 Absolute Neuts (auto) 20.7 H Absolute Lymphs (auto) 1.50 Nucleated RBC % 0 Sodium 142 Potassium 4.3 Chloride 115 H Carbon Dioxide 21.0 Anion Gap 6 BUN 26 H Creatinine 1.27 Estim Creat Clear Calc 62.27 Est GFR (MDRD) Af Amer 74 Est GFR (MDRD) Non-Af 61 BUN/Creatinine Ratio 20.5 H Glucose 133 H Lactic Acid Calcium 8.3 L Total Bilirubin AST ALT Alkaline Phosphatase Troponin I B-Natriuretic Peptide Total Protein Albumin Globulin Albumin/Globulin Ratio Lipase MRSA (PCR) POC Glucose 261 H 05/17/21 07:27 WBC RBC Hgb Hct MCV MCH MCHC RDW Std Deviation RDW Coeff of James Plt Count MPV Immature Gran % (Auto) Neut % (Auto) Lymph % (Auto) Ascension % (Auto) Eos % (Auto) Baso % (Auto) Absolute Neuts (auto) Absolute Lymphs (auto) Nucleated RBC % Sodium Potassium Chloride Carbon Dioxide Anion Gap BUN Creatinine Estim Creat Clear Calc Est GFR (MDRD) Af Amer Est GFR (MDRD) Non-Af BUN/Creatinine Ratio Glucose Lactic Acid Calcium Total Bilirubin AST ALT Alkaline Phosphatase Troponin I B-Natriuretic Peptide Total Protein Albumin Globulin Albumin/Globulin Ratio Lipase MRSA (PCR) POC Glucose 137 H Micro: Microbiology 05/16/21 21:20 Urine, Random Legionella Antigen - Final 05/16/21 21:20 Urine, Random Streptococcus pneumoniae Antigen (M - Final 05/16/21 15:55 Sputum, Expectorated/Coughed Gram Stain - Preliminary 05/16/21 11:25 Mucosa - Nose SARS-CoV-2 Antigen (Rapid) - Final ABG Data ABG results: ABG 05/16/21 11:02 Specimen Type ART Sample Site L Radial pH 7.33 L Bicarbonate Actual 23.4 Total CO2 25 Base Excess -2 O2 Saturation 96 O2 % 70 ABG pCO2 44.1 ABG pO2 90 Gabe Test Positive Respiration Rate 12 O2 Delivery Device BiPAP Vent Mode BiLevel POC PEEP 6 Clinical Comments 11/03 12 70 Radiography Diagnostic Testing: Radiology Impression Chest X-Ray 05/16/21 11:02 IMPRESSION: Increasing bilateral pulmonary infiltrates worse in the right hemithorax. Electronically Signed: Den Carver MD at 11:23 EDT , Service support , Physical Exam Const alert, oriented x3 and no apparent distress General Appearance: cooperative Exam Limitations: no limitations HEENT normocephalic, head/scalp atraumatic and hearing grossly normal bilaterally Head and Scalp: normocephalic Eyes PERRL, EOMs intact bilaterally and conjunctivae normal Neck no lymphadenopathy Resp Resp Narrative: diminished breath sounds bibasally, no wheezes. Bibasal crackles. on 3L of oxygen Cardio regular rate, regular rhythm, S1 normal heart sound, S2 normal heart sound and no murmurs GI normal to inspection, nondistended, normoactive bowel sounds, soft to palpation, non-tender and non-distended Extremity normal to inspection, full ROM and no clubbing, cyanosis or edema Skin no rashes or lesions noted Neuro oriented x3 Sensorium / Orientation: awake and alert Psych affect normal Assessment & Plan Assessment/Plan (1) Severe sepsis: (2) Pneumonia: QUALIFIERS: Laterality: right Lung location: lower lobe of lung Pneumonia type: due to unspecified organism Qualified Code(s): J18.9 - Pneumonia, unspecified organism (3) CELESTE (acute kidney injury): (4) Acute respiratory failure with hypoxia: PLAN: #Acute hypoxic respiratory failure due to community acquired pneumonia * now on 3L of oxygen. * titrate oxygen to maintain sats>90% * on IV vancomycin and zosyn. urine for strep and legionella * ID on board * breathing treatment with bronchodilators * wbc is up to 23 today * #Severe sepsis due to pneumonia: As above. #Community-acquired pneumonia: As above #Type 2 diabetes mellitus: On Lantus 24 units daily. Insulin sliding scale. Accu-Cheks AC at bedtime. #Hypertension: On carvedilol. Hold carvedilol as BP is running low #CAD s/p stents: On carvedilol, Imdur and Plavix as well as statin #Anxiety and depression: On Xanax, BuSpar, Prozac and trazodone DVT prophylaxis:lovenox CODE STATUS: Full code * Charges/Coding Visit Charges Inpatient E&M: 44663 Subs Hosp L3
[2021-05-17] MEDS: Insulin Lispro 100 UNIT/ML INSULN.PEN 8 UNIT SC ×3 (08:59→16:48)
[2021-05-17] MEDS: Enoxaparin 40 MG/0.4 ML Syringe SC (09:47)
[2021-05-17] MEDS: FLUoxetine 20 MG Capsule 60 MG PO (09:48)
[2021-05-17] MEDS: Carvedilol 25 MG Tablet PO ×2 (09:49→22:20)
[2021-05-17] MEDS: Isosorbide Mononitrate 30 MG Tablet PO (09:49)
[2021-05-17] MEDS: Losartan Potassium 100 MG Tablet PO (09:49)
[2021-05-17] MEDS: Pantoprazole Sodium 20 MG Tablet PO (09:49)
[2021-05-17] MEDS: Furosemide 40 MG Tablet PO (09:49)
[2021-05-17] MEDS: Finasteride 5 MG Tablet PO (09:49)
[2021-05-17] MEDS: Spironolactone 50 MG Tablet PO (09:49)
[2021-05-17] MEDS: Clopidogrel Bisulfate 75 MG Tablet PO (09:49)
[2021-05-17] MEDS: Pregabalin 75 MG Capsule PO ×2 (09:58→22:16)
[2021-05-17] MEDS: ALPRAZolam 0.5 MG Tablet PO ×2 (09:58→22:16)
[2021-05-17 12:05] LABS: Bedside Glucose 248 mg/dL (70-110)
[2021-05-17] MEDS: Insulin Lispro 100 UNIT/ML INSULN.PEN SC ×3 (12:14→22:16)
--- NOTE | 2021-05-17 15:34 | CASEMGMT ---
RN LIZETT NOTE: PT/OT evals have been reviewed. Pt only able to ambulate 5 ' w/mod assist of 1-2 and w/use of walker. ALICE PHOENIX to room to discuss discharge planning. Pt states he has spoken w/his sig other, She, and is interested in going to TCU @ discharge. Will notify Virgen GÓMEZ. Zelalem BACA RN, CM
[2021-05-17 16:55] LABS: Bedside Glucose 207 mg/dL (70-110)
--- NOTE | 2021-05-17 19:50 | CM.ED ---
RICO Note: Referral Source: Service Unit Operator [employer] Referral Reason: Advanced Directives SW went to patient's room and met with patient and family. SW provided them with information on Advanced Directives. SW went back to patient's room as patient requests TCU (Transitional Care Unit) at discharge. Patient reports that he wants to go to rehab at discharge from hospital at [facility] and then go home. Patient also inquired as to when he and his family could make appointment to sign Advanced Directives and this commercial insurance underwriter advised that patient can meet with assigned secondary social studies teacher to sign the Advanced Directive and this commercial insurance underwriter will update h assigned secondary social studies teacher about their desire to speak to her. Patient reports he has been given list of SNF's in [place] and wants to go to [facility] for his rehab. SW sent email to assigned secondary social studies teacher and Daya Roland stating patient wants advanced directives signed and placement in rehab at [facility]. Plan: Patient is requesting [facility] for rehab Virgen SANTANA
[2021-05-17] MEDS: Atorvastatin Calcium 80 MG Tablet PO (22:19)
[2021-05-17] MEDS: traZODone 100 MG Tablet PO (22:20)
[2021-05-17 22:31] LABS: Bedside Glucose 159 mg/dL (70-110)
[2021-05-18] VITALS (19 sets, daily range): BP systolic 113–150; BP diastolic 62–98; PULSE 70–102; RESP 12–19; TEMP 36.8–37.3; O2SAT 95–98
--- NOTE | 2021-05-18 01:00 | PCM.RX.CS ---
Consult Pharmacy has been consulted to manage selected antiobiotic: Vancomycin Type of Consult: Follow-up Suspected Infection: Sepsis Labs: Sodium 142 mmol/L (136-145) 05/17/21 05:58 Potassium 4.3 mmol/L (3.5-5.1) 05/17/21 05:58 Chloride 115 mmol/L (98-107) H 05/17/21 05:58 Carbon Dioxide 21.0 mmol/L (21.0-32.0) 05/17/21 05:58 Anion Gap 6 (5-15) 05/17/21 05:58 BUN 26 mg/dL (7-18) H 05/17/21 05:58 Creatinine 1.27 mg/dL (0.70-1.30) 05/17/21 05:58 Est GFR (MDRD) Af Amer 74 mL/min (>60) 05/17/21 05:58 Est GFR (MDRD) Non-Af 61 mL/min (>60) 05/17/21 05:58 BUN/Creatinine Ratio 20.5 RATIO (10-20) H 05/17/21 05:58 Glucose 133 mg/dL (74-106) H 05/17/21 05:58 Vancomycin Trough 18.0 ug/mL (5.0-15.0) H 05/17/21 23:28 Microbiology: Microbiology 05/16/21 15:55 Sputum, Expectorated/Coughed Gram Stain - Final 05/16/21 15:55 Sputum, Expectorated/Coughed Respiratory Culture - Preliminary Appears to be normal respiratory hina. Further studies to follow. 05/16/21 21:20 Urine, Random Legionella Antigen - Final 05/16/21 21:20 Urine, Random Streptococcus pneumoniae Antigen (M - Final 05/16/21 11:25 Mucosa - Nose SARS-CoV-2 Antigen (Rapid) - Final Goal Trough: 15-20 mcg/mL Pharmacy Plan for Drug Dosing: Pharmacy Service will continue to monitor and adjust dosing as required. TROUGH 18.0 NO CHANGES FOLLOW UP TROUGH IN 4 DAYS Follow-Up Labs: Trough Vancomycin Labs to be done on [date and time ordered]: 05/21 @ 3331
[2021-05-18] MEDS: 0.9% Saline Lock 10 ML Syringe IV ×2 (05:59→23:55)
[2021-05-18] MEDS: hydrALAZINE 10 MG Tablet 20 MG PO ×3 (06:01→21:29)
[2021-05-18] MEDS: busPIRone 15 MG TABLET 7.5 MG PO ×3 (06:03→21:30)
[2021-05-18 07:06] LABS: Bedside Glucose 139 mg/dL (70-110)
[2021-05-18] MEDS: Insulin Lispro 100 UNIT/ML INSULN.PEN 8 UNIT SC ×3 (07:47→18:22)
--- NOTE | 2021-05-18 07:47 | PN.CC_ITS ---
Assessment & Plan Assessment/Plan (1) Acute respiratory failure with hypoxia: (2) Severe sepsis: PLAN: RECOMMENDATIONS: 1. Wean supplemental oxygen to maintain saturations at or above 90%. 2. Continue broad-spectrum antimicrobials. 3. Encourage incentive spirometer use and mobilize patient as tolerated. 4. Will sign off from a critical care perspective. Please call with any additional questions. IMPRESSIONS: 1. Severe sepsis Clinical and radiographic concern for underlying pulmonary infectious etiology. The patient was adequately volume resuscitated. Antimicrobials will be continued pending further infectious work-up. The patient remains hemodynamically stable. 2. Acute hypoxemic respiratory failure Likely related to underlying pneumonia, as noted above. Continue to wean supplemental oxygen to maintain saturations at or above 90%. 3. Acute on chronic kidney disease Resolved. Most likely prerenal in etiology. Creatinine improved with volume expansion. Continue to monitor urine output for now. No current indication for renal replacement therapy. 4. History of coronary artery disease/diabetes mellitus/hypertension/anxiety/depression Complicates care, management, recovery and prognosis. Continue home medications as indicated. This note was generated with Wikirin dictation software. It may contain incorrect words, spelling, and punctuation that were not noted in checking the note before signing. Subjective Subjective The patient was seen and examined at the bedside this morning. Events from the last 24 hours have been reviewed. The patient is currently afebrile, hemodynamically stable and maintaining appropriate oxygen saturations on 2 L/min via nasal cannula. The patient is currently documented to be overall net +5 L for the hospital admission. Objective Data Objective Data The patient's most recent lab work, culture data and imaging studies have all been personally reviewed. Surface echocardiogram dated May 14 revealed an ejection fraction of 60%. Rapid coronavirus antigen testing was negative. Strep and urine Legionella antigens were negative. Blood and sputum cultures have shown no growth to date. Vital Signs: Vital Signs Temp Pulse Resp BP Pulse Ox 98.7 F 93 19 H 135/98 H 96 05/18/21 02:34 05/18/21 06:01 05/18/21 04:26 05/18/21 06:01 05/18/21 07:08 Oxygen Flow Rate (L/min) 2 Oxygen Delivery Method Nasal Cannula Weight: 275 lb 6.4 oz Body Mass Index (BMI) 39.5 Intake & Output: Intake and Output for Last 24 Hours 05/16/21 05/17/21 05/18/21 23:59 23:59 23:59 Intake Total 5493.75 / 5693.75 2899.5 / 3399.5 1182.75 / 1182.75 Output Total 750 / 1350 1800 / 3200 2100 / 2100 Balance 4743.75 / 4343.75 1099.5 / 199.5 -917.25 / -917.25 Lab / Micro Data Attestation: I reviewed the patient's lab results. Result Diagrams: 05/17/21 05:58 05/17/21 05:58 Labs: Laboratory Results - last 24 hr 05/17/21 05/17/21 05/17/21 11:57 16:46 22:12 Vancomycin Trough POC Glucose 248 H 207 H 159 H 05/17/21 05/18/21 23:28 07:00 Vancomycin Trough 18.0 H POC Glucose 139 H Micro: Microbiology 05/16/21 11:20 Blood Culture (Wb) - Anticubital Right Blood Culture - P reliminary No growth in 48 hours. 05/16/21 10:50 Blood Culture (Wb) - Anticubital Left Blood Culture - Preliminary No growth in 48 hours. 05/16/21 15:55 Sputum, Expectorated/Coughed Gram Stain - Final 05/16/21 15:55 Sputum, Expectorated/Coughed Respiratory Culture - Preliminary Appears to be normal respiratory hina. Further studies to follow. 05/16/21 21:20 Urine, Random Legionella Antigen - Final 05/16/21 21:20 Urine, Random Streptococcus pneumoniae Antigen (M - Final 05/16/21 11:25 Mucosa - Nose SARS-CoV-2 Antigen (Rapid) - Final Physical Exam Const alert, oriented x3 and no apparent distress General Appearance: cooperative Nutritional Appearance: obese HEENT normocephalic and head/scalp atraumatic Eyes PERRL, EOMs intact bilaterally and conjunctivae normal Neck supple General: trachea midline Resp Auscultation: rales and diminished lung sounds; Negative for rhonchi or wheezes Cardio regular rate, regular rhythm, S1 normal heart sound and S2 normal heart sound GI normal to inspection, nondistended, normoactive bowel sounds Extremity no clubbing, cyanosis or edema Skin no rashes or lesions noted Neuro CN's II-XII intact bilaterally, moves all extremities and no focal motor deficits Psych cooperative and affect normal Charges/Coding Visit Charges Inpatient E&M: 14654 Subs Hosp L2
[2021-05-18 08:58] LABS: Absolute Lymphocyte Count 1.58 X10^3/uL (0.83-4.51); Absolute Neutrophil Count 14.5 X10^3/uL (2.0-7.7); Basophil# 0.03 X10^3/uL; Basophil% 0.2 % (0-1); Eosinophil# 0.09 X10^3/uL; Eosinophils% 0.5 % (0-5); Hematocrit 30.6 % (40-54); Hemoglobin 9.6 g/dL (13.0-16.5); Lymphocyte # 1.58 X10^3/ul (0.83-4.51); Lymphocyte % 9.2 % (19-41); Mean Corp Hgb Conc 31.4 g/dL (32-36); Mean Corpuscular Hgb 29.4 pg (27.0-32.0); Mean Corpuscular Volume 93.6 fL (80-94); Mean Platelet Vol. 10.5 fl (6.2-12.0); Monocyte# 0.75 X10^3/uL; Monocyte% 4.4 % (0-10); NRBC Flagged by Analyzer 0 % (0-5); Neutrophil # 14.49 X10^3/uL (2.7-7.7); Neutrophil % 84.6 % (47-70); Platelet Count 166 K/mm3 (150-450); RBC Distribution Width CV 13.3 % (11.6-14.6); RBC Distribution Width SD 45.5 fl (35.1-43.9); Red Blood Count 3.27 M/mm3 (4.6-6.2); White Blood Count 17.1 K/mm3 (4.4-11.0)
[2021-05-18 09:23] LABS: Anion Gap 5 (5-15); BUN 22 mg/dL (7-18); BUN/Creat Ratio 15.3 RATIO (10-20); Calcium,Total 8.5 mg/dL (8.5-10.1); Chloride 109 mmol/L (98-107); Creatinine, Serum 1.44 mg/dL (0.70-1.30); EST Glomerular Filtration Rate 53 mL/min (>60); Est Glom Filt Rate - Afr Amer 64 mL/min (>60); Estimated Creatinine Clearance 54.92 ml/min; Glucose 203 mg/dL (74-106); Potassium 3.7 mmol/L (3.5-5.1); Sodium Level 140 mmol/L (136-145)
[2021-05-18] MEDS: Carvedilol 25 MG Tablet PO ×2 (10:15→21:29)
[2021-05-18] MEDS: Pregabalin 75 MG Capsule PO ×2 (10:15→21:28)
[2021-05-18] MEDS: Enoxaparin 40 MG/0.4 ML Syringe SC (10:15)
[2021-05-18] MEDS: Furosemide 40 MG Tablet PO (10:15)
[2021-05-18] MEDS: FLUoxetine 20 MG Capsule 60 MG PO (10:15)
[2021-05-18] MEDS: Isosorbide Mononitrate 30 MG Tablet PO (10:15)
[2021-05-18] MEDS: Pantoprazole Sodium 20 MG Tablet PO (10:15)
[2021-05-18] MEDS: ALPRAZolam 0.5 MG Tablet PO ×2 (10:15→21:28)
[2021-05-18] MEDS: Finasteride 5 MG Tablet PO (10:15)
[2021-05-18] MEDS: Clopidogrel Bisulfate 75 MG Tablet PO (10:15)
[2021-05-18] MEDS: Spironolactone 50 MG Tablet PO (10:15)
[2021-05-18] MEDS: Losartan Potassium 100 MG Tablet PO (10:15)
--- NOTE | 2021-05-18 11:10 | PN.HOSP_ITS ---
Subjective Subjective Patient seen and examined. He feels quite lethargic but states his breathing is much much better. He is down to 1 L of oxygen and has no complaints. Review of systems otherwise negative. He has remained hemodynamically stable. Objective Data Objective Data Vital Signs: Vital Signs Temp Pulse Resp BP Pulse Ox 99.1 F 76 18 113/66 95 05/18/21 08:56 05/18/21 08:56 05/18/21 08:56 05/18/21 08:56 05/18/21 08:56 Oxygen Flow Rate (L/min) 1 Oxygen Delivery Method Nasal Cannula Weight: 275 lb 6.4 oz Body Mass Index (BMI) 39.5 Intake & Output: Intake and Output for Last 24 Hours 05/16/21 05/17/21 05/18/21 23:59 23:59 23:59 Intake Total 5493.75 / 5693.75 2899.5 / 3399.5 1239.25 / 1239.25 Output Total 750 / 1350 1800 / 3200 2400 / 2400 Balance 4743.75 / 4343.75 1099.5 / 199.5 -1160.75 / -1160.75 Lab / Micro Data Result Diagrams: 05/18/21 08:45 05/18/21 08:45 Labs: Laboratory Results - last 24 hr 05/17/21 05/17/21 05/17/21 11:57 16:46 22:12 WBC RBC Hgb Hct MCV MCH MCHC RDW Std Deviation RDW Coeff of James Plt Count MPV Immature Gran % (Auto) Neut % (Auto) Lymph % (Auto) Tyler % (Auto) Eos % (Auto) Baso % (Auto) Absolute Neuts (auto) Absolute Lymphs (auto) Nucleated RBC % Sodium Potassium Chloride Carbon Dioxide Anion Gap BUN Creatinine Estim Creat Clear Calc Est GFR (MDRD) Af Amer Est GFR (MDRD) Non-Af BUN/Creatinine Ratio Glucose Calcium Vancomycin Trough POC Glucose 248 H 207 H 159 H 05/17/21 05/18/21 05/18/21 23:28 07:00 08:45 WBC 17.1 H RBC 3.27 L Hgb 9.6 L Hct 30.6 L MCV 93.6 MCH 29.4 MCHC 31.4 L RDW Std Deviation 45.5 H RDW Coeff of James 13.3 Plt Count 166 MPV 10.5 Immature Gran % (Auto) 1.100 H Neut % (Auto) 84.6 H Lymph % (Auto) 9.2 L Tyler % (Auto) 4.4 Eos % (Auto) 0.5 Baso % (Auto) 0.2 Absolute Neuts (auto) 14.5 H Absolute Lymphs (auto) 1.58 Nucleated RBC % 0 Sodium Potassium Chloride Carbon Dioxide Anion Gap BUN Creatinine Estim Creat Clear Calc Est GFR (MDRD) Af Amer Est GFR (MDRD) Non-Af BUN/Creatinine Ratio Glucose Calcium Vancomycin Trough 18.0 H POC Glucose 139 H 05/18/21 08:45 WBC RBC Hgb Hct MCV MCH MCHC RDW Std Deviation RDW Coeff of James Plt Count MPV Immature Gran % (Auto) Neut % (Auto) Lymph % (Auto) Tyler % (Auto) Eos % (Auto) Baso % (Auto) Absolute Neuts (auto) Absolute Lymphs (auto) Nucleated RBC % Sodium 140 Potassium 3.7 Chloride 109 H Carbon Dioxide 26.0 Anion Gap 5 BUN 22 H Creatinine 1.44 H Estim Creat Clear Calc 54.92 Est GFR (MDRD) Af Amer 64 Est GFR (MDRD) Non-Af 53 L BUN/Creatinine Ratio 15.3 Glucose 203 H Calcium 8.5 Vancomycin Trough POC Glucose Micro: Microbiology 05/16/21 11:20 Blood Culture (Wb) - Anticubital Right Blood Culture - Preliminary No growth in 48 hours. 05/16/21 10:50 Blood Culture (Wb) - Anticubital Left Blood Culture - Preliminary No growth in 48 hours. 05/16/21 15:55 Sputum, Expectorated/Coughed Gram Stain - Final 05/16/21 15:55 Sputum, Expectorated/Coughed Respiratory Culture - Preliminary Appears to be normal respiratory hina. Further studies to follow. 05/16/21 21:20 Urine, Random Legionella Antigen - Final 05/16/21 21:20 Urine, Random Streptococcus pneumoniae Antigen (M - Final 05/16/21 11:25 Mucosa - Nose SARS-CoV-2 Antigen (Rapid) - Final Physical Exam Const alert, oriented x3 and no apparent distress General Appearance: cooperative Exam Limitations: no limitations HEENT normocephalic, head/scalp atraumatic and hearing grossly normal bilaterally Eyes PERRL, EOMs intact bilaterally and conjunctivae normal Neck no lymphadenopathy Resp Resp Narrative: diminished breath sounds bibasally, no wheezes. Bibasal crackles. on 3L of oxygen Cardio regular rate, regular rhythm, S1 normal heart sound, S2 normal heart sound and no murmurs GI normal to inspection, nondistended, normoactive bowel sounds, soft to palpation, non-tender and non-distended Extremity normal to inspection, full ROM and no clubbing, cyanosis or edema Peripheral Pulses: Yes pulses 2+ throughout Skin no rashes or lesions noted Neuro oriented x3 Sensorium / Orientation: awake and alert Psych affect normal Assessment & Plan Assessment/Plan (1) Severe sepsis: (2) Pneumonia: QUALIFIERS: Pneumonia type: due to unspecified organism Laterality: right Lung location: lower lobe of lung Qualified Code(s): J18.9 - Pneumonia, unspecified organism (3) CELESTE (acute kidney injury): (4) Acute respiratory failure with hypoxia: PLAN: #Acute hypoxic respiratory failure due to community acquired pneumonia * now on 3L of oxygen. * titrate oxygen to maintain sats>90% * Now on p.o. levofloxacin, to complete a 5-day course. * ID and pulmonary on board. * breathing treatment with bronchodilators * wbc is down to 17.1 today * Sputum cultures * #Severe sepsis due to pneumonia: As above. #Community-acquired pneumonia: As above #Type 2 diabetes mellitus: On Lantus 24 units daily. Insulin sliding scale. Accu-Cheks AC at bedtime. #Hypertension: On carvedilol. Hold carvedilol as BP is running low #CAD s/p stents: On carvedilol, Imdur and Plavix as well as statin #Anxiety and depression: On Xanax, BuSpar, Prozac and trazodone #CKD stage 3: baseline Cr is ` 1.2. Cr is 1.44 today. Will monitor DVT prophylaxis:lovenox CODE STATUS: Full code * Disposition: awaiting placement. Wants to go to TCU at discharge. Case management on board. Charges/Coding Visit Charges Inpatient E&M: 54699 Subs Hosp L2
[2021-05-18 11:41] LABS: Bedside Glucose 213 mg/dL (70-110)
[2021-05-18] MEDS: Insulin Lispro 100 UNIT/ML INSULN.PEN SC ×3 (12:28→21:31)
[2021-05-18 17:45] LABS: Bedside Glucose 168 mg/dL (70-110)
[2021-05-18] MEDS: Atorvastatin Calcium 80 MG Tablet PO (21:30)
[2021-05-18] MEDS: traZODone 100 MG Tablet PO (21:32)
[2021-05-18 22:01] LABS: Bedside Glucose 186 mg/dL (70-110)
[2021-05-19] VITALS (17 sets, daily range): BP systolic 100–151; BP diastolic 49–94; PULSE 65–90; RESP 12–29; TEMP 36.6–38; O2SAT 94–99
[2021-05-19] MEDS: busPIRone 15 MG TABLET 7.5 MG PO ×3 (06:02→21:55)
[2021-05-19] MEDS: hydrALAZINE 10 MG Tablet 20 MG PO (06:09)
[2021-05-19] MEDS: 0.9% Saline Lock 10 ML Syringe IV ×4 (06:11→13:47)
[2021-05-19 07:02] LABS: Absolute Lymphocyte Count 1.19 X10^3/uL (0.83-4.51); Absolute Neutrophil Count 9.7 X10^3/uL (2.0-7.7); Basophil# 0.03 X10^3/uL; Basophil% 0.2 % (0-1); Eosinophil# 0.24 X10^3/uL; Hematocrit 31.9 % (40-54); Hemoglobin 10.2 g/dL (13.0-16.5); Lymphocyte # 1.19 X10^3/ul (0.83-4.51); Lymphocyte % 9.9 % (19-41); Mean Corpuscular Hgb 29.5 pg (27.0-32.0); Mean Corpuscular Volume 92.2 fL (80-94); Mean Platelet Vol. 10.5 fl (6.2-12.0); Monocyte# 0.79 X10^3/uL; Monocyte% 6.6 % (0-10); NRBC Flagged by Analyzer 0 % (0-5); Neutrophil # 9.68 X10^3/uL (2.7-7.7); Neutrophil % 80.6 % (47-70); Platelet Count 176 K/mm3 (150-450); RBC Distribution Width CV 13.3 % (11.6-14.6); RBC Distribution Width SD 45.3 fl (35.1-43.9); Red Blood Count 3.46 M/mm3 (4.6-6.2)
[2021-05-19 07:20] LABS: Bedside Glucose 177 mg/dL (70-110)
[2021-05-19 07:29] LABS: Anion Gap 7 (5-15); BUN 19 mg/dL (7-18); BUN/Creat Ratio 15.6 RATIO (10-20); Calcium,Total 8.9 mg/dL (8.5-10.1); Chloride 106 mmol/L (98-107); Creatinine, Serum 1.22 mg/dL (0.70-1.30); EST Glomerular Filtration Rate 64 mL/min (>60); Est Glom Filt Rate - Afr Amer 77 mL/min (>60); Estimated Creatinine Clearance 64.82 ml/min; Glucose 170 mg/dL (74-106); Potassium 3.7 mmol/L (3.5-5.1); Sodium Level 141 mmol/L (136-145)
[2021-05-19] MEDS: Insulin Lispro 100 UNIT/ML INSULN.PEN SC ×4 (07:51→21:55)
[2021-05-19] MEDS: Insulin Lispro 100 UNIT/ML INSULN.PEN 8 UNIT SC ×2 (07:51→17:29)
[2021-05-19] MEDS: Losartan Potassium 100 MG Tablet PO (07:52)
[2021-05-19] MEDS: Furosemide 40 MG Tablet PO (07:52)
[2021-05-19] MEDS: Carvedilol 25 MG Tablet PO (07:52)
[2021-05-19] MEDS: Isosorbide Mononitrate 30 MG Tablet PO (07:53)
[2021-05-19] MEDS: Clopidogrel Bisulfate 75 MG Tablet PO (07:53)
[2021-05-19] MEDS: FLUoxetine 20 MG Capsule 60 MG PO (07:53)
[2021-05-19] MEDS: Pantoprazole Sodium 20 MG Tablet PO (07:53)
[2021-05-19] MEDS: Spironolactone 50 MG Tablet PO (07:54)
[2021-05-19] MEDS: Finasteride 5 MG Tablet PO (07:54)
--- NOTE | 2021-05-19 09:45 | CASEMGMT ---
Addendum entered by Adriana Fernando 05/19/21 12:09: 1006- Received tc back from Jessica at [facility] who is accepting patient for services. Patient updated. Original Note: ALICE PHOENIX aware from that pt would like to go home. ALICE PHOENIX in to pt room to discuss. Pt states he would like to get back home to his fiance. Pt would like therapy at home and is agreeable to nursing as well. Patient was provided a list of [facility] providers including quality and resource use data and consistent with the patient?s preferred geographic region, medical needs, and insurance network. The patient?s preferred provider [facility]. TC to Jessica intake at [facility], referral made awaiting for acceptance.
--- NOTE | 2021-05-19 10:05 | CASEMGMT ---
RN LIZETT Face to Face with patient for initial transition planning/care coordination assessment. RN CM introduced self and role at [facility]. Patient lying in bed, alert and oriented. Patient willing to participate in assessment and is able to answer all questions appropriately. Care providers, pharmacy, and demographics verified. Patient wishes to discharge home, denies need for home health at this time. Patient states he has no further needs or concerns at this time. CM to follow for discharge planning needs that may arise. PCP: Tavia Negro Specialists: none Preferred Pharmacy: [facility] Insurance: MMO Prescription Benefit: yes Living Will/HPOA: none LNOK: son, mother Living Arrangements: Patient lives with a roommate in a 2 story home. Patient states he is independent at home and able to ambulate stairs. Transportation: self, neighbor DME/HHC: Patient states he has nebulizer and home oxygen at 2lpm at through [employer]. Patient denies previous HHC. Will monitor need for HHC pending course of treatment for wound care and antibiotics. Disposition Plan: Patient to discharge home with follow-up plans in place. Becca BACA, RN, CM
[2021-05-19] MEDS: Enoxaparin 40 MG/0.4 ML Syringe SC (10:23)
[2021-05-19] MEDS: Pregabalin 75 MG Capsule PO ×2 (10:23→21:54)
[2021-05-19] MEDS: ALPRAZolam 0.5 MG Tablet PO ×2 (10:23→21:54)
[2021-05-19] MEDS: Ondansetron 4 MG/2 ML Vial IV (12:02)
--- NOTE | 2021-05-19 12:07 | CASEMGMT ---
SW spoke w/pt in room in regard to completing LW/POA forms. Pt was just put back on bipap, and also would like to complete the papers when his significant other She is here. SW will check back w/pt when more appropriate. MAURA Jackson
--- NOTE | 2021-05-19 12:25 | RAD_ITS ---
STUDY: X-RAY CHEST REASON FOR EXAM: Male, 61 years old. SOB TECHNIQUE: 1 view COMPARISON: None 05/16/2021. FINDINGS: Still noted elevation of the right hemidiaphragm. Heavy markings noted bilaterally. The costophrenic angles are clear no pneumothorax or pleural effusion. RAD/Chest 1 View (Portable) IMPRESSION: No active intrathoracic disease. Unchanged since May 16, 2021 Electronically Signed: Vel Ontiveros, at 13:21 EDT Tel , Service support ,
[2021-05-19] MEDS: Acetaminophen 500 MG Tablet 1000 MG PO (14:06)
--- NOTE | 2021-05-19 14:33 | PCM.PN.ID ---
Physical Exam Narrative Feeling better, no fever, breathing ok Const alert General Appearance: cooperative Resp clear to auscultation bilaterally Auscultation: diminished lung sounds Cardio regular rate and regular rhythm GI normal to inspection, nondistended, normoactive bowel sounds Extremity no clubbing, cyanosis or edema Skin no rashes or lesions noted ID ID: Route of nutrition/ use of supplements: [] Nutritional Intake: [] IV Site: [] Juarez Catheter: [] Assessment & Plan Assessment/Plan (1) Acute respiratory failure with hypoxia: (2) Severe sepsis: PLAN: severe sepsis with fever, CELESTE on CKD, lactic acidosis, tachycardia, leukocytosis due to CAP - not producing sputum. Covid neg, has completed covid series. UAgs neg. Stop vanc today, cont zosyn, overall much improved. Plan on 7 days total of abx, can complete course with po levaquin 500mg daily. Day 4 of abx today. Will follow, d/w Dr. Larkin (3) CELESTE (acute kidney injury):
[2021-05-19 14:50] LABS: Base Excess 2 mmol/L (-2 to +2); Bicarbonate 26.6 mmol/L (22-26); Blood Gas Specimen Type ART; FI02 30; O2 Delivery Device BiPAP; PEEP 6; PO2 55 mmHG (75-100); PS 12; SITE R Brach; SO2 89 % (95-99); Total Carbon Dioxide 28 mmol/L; pH 7.43 (7.35-7.45)
--- NOTE | 2021-05-19 15:36 | CASEMGMT ---
ALICE CM: Pt with a LACE strata of 4 indicating pt at risk for readmission. Palliative care screening tool completed. Pt with three admissions this year and otherwise does not meet criteria for palliative care referral at this time. Cole Boyle RN CM
--- NOTE | 2021-05-19 15:41 | PN.CC_ITS ---
Assessment & Plan Assessment/Plan (1) Acute respiratory failure with hypoxia: (2) Severe sepsis: PLAN: RECOMMENDATIONS: 1. Wean supplemental oxygen to maintain saturations at or above 90%. 2. Continue broad-spectrum antimicrobials. 3. Encourage incentive spirometer use and mobilize patient as tolerated. Add Pep therapy 4. Moved to PCU for further monitoring IMPRESSIONS: 1. Severe sepsis Clinical and radiographic concern for underlying pulmonary infectious etiology. The patient was adequately volume resuscitated. Antimicrobials will be continued pending further infectious work-up. The patient remains hemodynamically stable. Patient with recurrent pneumonias, but has bronchiectasis on recent CT scan. 2. Acute hypoxemic respiratory failure Patient with bronchiectasis on CT scan and elevation of the right hemidiaphragm. Will initiate Acapella therapy. If patient is unable to produce sputum, may add vest therapy tomorrow. Other differential would include congestive heart failure as patient does have a bicuspid mitral valve with murmur on exam. Pulmonary embolism risk would be relatively low given a normal D-dimer and lack of tachycardia on presentation. Reasonable to moved to PCU for further monitoring. 3. Acute on chronic kidney disease Resolved. Most likely prerenal in etiology. Creatinine improved with volume expansion. Continue to monitor urine output for now. No current indication for renal replacement therapy. 4. History of coronary artery disease/diabetes mellitus/hypertension/anxiety/depression Complicates care, management, recovery and prognosis. Continue home medications as indicated. This note was generated with [employer] dictation software. It may contain incorrect words, spelling, and punctuation that were not noted in checking the note before signing. Subjective Subjective Patient had been seen by Dr. Lanier previously and he signed off. However, I was asked to evaluate the patient secondary to worsening hypoxia through the day. Patient states that this started after eating, but denied any aspiration event. Patient states he was improved after being initiated on BiPAP therapy. Patient states he has had a cough, but denies any production. Patient's is at the bedside and states he has had multiple pneumonias over the last 4 to 5 years, 1/year on average. Patient has had a pulmonary function test previously, but is unaware of the results. Patient is not on inhalers at baseline. 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 Objective Data Objective Data Vital Signs: Vital Signs Temp Pulse Resp BP Pulse Ox 37.8 C H 90 29 H 100/60 94 05/19/21 13:52 05/19/21 13:52 05/19/21 13:52 05/19/21 13:52 05/19/21 13:52 Oxygen Flow Rate (L/min) 2 Oxygen Delivery Method CPAP Weight: 124.919 kg Body Mass Index (BMI) 39.5 Intake & Output: Intake and Output for Last 24 Hours 05/17/21 05/18/21 05/19/21 23:59 23:59 23:59 Intake Total 2899.5 / 3399.5 2219.50 / 2619.50 1235 / 1235 Output Total 1800 / 3200 3525 / 4025 2775 / 2775 Balance 1099.5 / 199.5 -1305.50 / -1405.50 -1540 / -1540 Lab / Micro Data Result Diagrams: 05/19/21 06:20 05/19/21 06:20 Labs: Laboratory Results - last 24 hr 05/18/21 05/18/21 05/19/21 17:40 21:27 06:20 WBC 12.0 H RBC 3.46 L Hgb 10.2 L Hct 31.9 L MCV 92.2 MCH 29.5 MCHC 32.0 RDW Std Deviation 45.3 H RDW Coeff of James 13.3 Plt Count 176 MPV 10.5 Immature Gran % (Auto) 0.700 Neut % (Auto) 80.6 H Lymph % (Auto) 9.9 L Lipscomb % (Auto) 6.6 Eos % (Auto) 2.0 Baso % (Auto) 0.2 Absolute Neuts (auto) 9.7 H Absolute Lymphs (auto) 1.19 Nucleated RBC % 0 Sodium Potassium Chloride Carbon Dioxide Anion Gap BUN Creatinine Estim Creat Clear Calc Est GFR (MDRD) Af Amer Est GFR (MDRD) Non-Af BUN/Creatinine Ratio Glucose Calcium POC Glucose 168 H 186 H 05/19/21 05/19/21 06:20 07:16 WBC RBC Hgb Hct MCV MCH MCHC RDW Std Deviation RDW Coeff of James Plt Count MPV Immature Gran % (Auto) Neut % (Auto) Lymph % (Auto) Lipscomb % (Auto) Eos % (Auto) Baso % (Auto) Absolute Neuts (auto) Absolute Lymphs (auto) Nucleated RBC % Sodium 141 Potassium 3.7 Chloride 106 Carbon Dioxide 28.0 Anion Gap 7 BUN 19 H Creatinine 1.22 Estim Creat Clear Calc 64.82 Est GFR (MDRD) Af Amer 77 Est GFR (MDRD) Non-Af 64 BUN/Creatinine Ratio 15.6 Glucose 170 H Calcium 8.9 POC Glucose 177 H Micro: Microbiology 05/16/21 15:55 Sputum, Expectorated/Coughed Gram Stain - Final 05/16/21 15:55 Sputum, Expectorated/Coughed Respiratory Culture - Final Presumptive C albicans 05/16/21 11:20 Blood Culture (Wb) - Anticubital Right Blood Culture - Preliminary No growth in 48 hours. 05/16/21 10:50 Blood Culture (Wb) - Anticubital Left Blood Culture - Preliminary No growth in 48 hours. 05/16/21 21:20 Urine, Random Legionella Antigen - Final 05/16/21 21:20 Urine, Random Streptococcus pneumoniae Antigen (M - Final 05/16/21 11:25 Mucosa - Nose SARS-CoV-2 Antigen (Rapid) - Final ABG Data ABG results: ABG 05/19/21 14:41 Specimen Type ART Sample Site R Brach pH 7.43 Bicarbonate Actual 26.6 H Total CO2 28 Base Excess 2 O2 Saturation 89 L O2 % 30 ABG pCO2 40.0 ABG pO2 55 L Gabe Test N/A O2 Delivery Device BiPAP POC PEEP 6 POC Pressure Suppt 12 Radiography Diagnostic Testing: Radiology Impression Chest X-Ray 05/19/21 12:25 IMPRESSION: No active intrathoracic disease. Unchanged since May 16, 2021 Electronically Signed: Kristinestephen Weston, at 13:21 EDT Tel , Service support , Physical Exam Const no apparent distress General Appearance: cooperative, comfortable, well kempt and on BiPAP Eyes PERRL, EOMs intact bilaterally, conjunctivae normal and no scleral icterus Chest inspection of chest normal Chest: symmetrical chest wall rise Resp Effort and Inspection: Negative for abnormal respiratory pattern, actively coughing or uses accessory muscles Auscultation: rales right base and diminished lung sounds; Negative for rhonchi or wheezes Cardio regular rate, regular rhythm and S1 normal heart sound Heart Sounds: murmur diastolic III/ crescendo-decrescendo mid apex GI normal to inspection, nondistended, normoactive bowel sounds Extremity normal to inspection, full ROM and normal capillary refill General Extremity: edema bilateral lower extremity Details: trace Peripheral Pulses: Yes radial pulses present Skin no rashes or lesions noted and no wounds Neuro oriented x3, CN's II-XII intact bilaterally, moves all extremities, no focal motor deficits and no sensory deficits noted Psych Appearance: grossly normal Activity / Motor Behavior: appropriate eye contact Mood & Affect: anxious Charges/Coding Visit Charges Inpatient E&M: 58249 Subs Hosp L3
--- NOTE | 2021-05-19 16:40 | PN.HOSP_ITS ---
Subjective Subjective Patient was seen earlier this morning and reported that he was feeling better. He was on 2 L nasal cannula at that time which compared to yesterday had increased by 1 L. I did trial him off oxygen and he desatted to 89%. Patient was insisting on discharge home at that time despite recommendation for continued rehab at discharge. I was then called later in the day because the patient stated that he was having trouble breathing and he was going to . He was on 3 L nasal cannula at that time. He did have BiPAP available at the bedside to this was placed on the patient and chest x-ray and ABG was ordered at that time. Objective Data Objective Data Vital Signs: Vital Signs Temp Pulse Resp BP Pulse Ox 100.4 F H 85 18 116/49 L 95 05/19/21 15:46 05/19/21 15:46 05/19/21 15:46 05/19/21 15:46 05/19/21 15:46 Oxygen Flow Rate (L/min) 2 Oxygen Delivery Method CPAP Weight: 124.919 kg Body Mass Index (BMI) 39.5 Intake & Output: Intake and Output for Last 24 Hours 05/17/21 05/18/21 05/19/21 23:59 23:59 23:59 Intake Total 2899.5 / 3399.5 2219.50 / 2619.50 1235 / 1235 Output Total 1800 / 3200 3525 / 4025 2775 / 2775 Balance 1099.5 / 199.5 -1305.50 / -1405.50 -1540 / -1540 Lab / Micro Data Result Diagrams: 05/19/21 06:20 05/19/21 06:20 Labs: Laboratory Results - last 24 hr 05/18/21 05/18/21 05/19/21 17:40 21:27 06:20 WBC 12.0 H RBC 3.46 L Hgb 10.2 L Hct 31.9 L MCV 92.2 MCH 29.5 MCHC 32.0 RDW Std Deviation 45.3 H RDW Coeff of James 13.3 Plt Count 176 MPV 10.5 Immature Gran % (Auto) 0.700 Neut % (Auto) 80.6 H Lymph % (Auto) 9.9 L [place] % (Auto) 6.6 Eos % (Auto) 2.0 Baso % (Auto) 0.2 Absolute Neuts (auto) 9.7 H Absolute Lymphs (auto) 1.19 Nucleated RBC % 0 Sodium Potassium Chloride Carbon Dioxide Anion Gap BUN Creatinine Estim Creat Clear Calc Est GFR (MDRD) Af Amer Est GFR (MDRD) Non-Af BUN/Creatinine Ratio Glucose Calcium POC Glucose 168 H 186 H 05/19/21 05/19/21 06:20 07:16 WBC RBC Hgb Hct MCV MCH MCHC RDW Std Deviation RDW Coeff of James Plt Count MPV Immature Gran % (Auto) Neut % (Auto) Lymph % (Auto) [place] % (Auto) Eos % (Auto) Baso % (Auto) Absolute Neuts (auto) Absolute Lymphs (auto) Nucleated RBC % Sodium 141 Potassium 3.7 Chloride 106 Carbon Dioxide 28.0 Anion Gap 7 BUN 19 H Creatinine 1.22 Estim Creat Clear Calc 64.82 Est GFR (MDRD) Af Amer 77 Est GFR (MDRD) Non-Af 64 BUN/Creatinine Ratio 15.6 Glucose 170 H Calcium 8.9 POC Glucose 177 H Micro: Microbiology 05/16/21 15:55 Sputum, Expectorated/Coughed Gram Stain - Final 05/16/21 15:55 Sputum, Expectorated/Coughed Respiratory Culture - Final Presumptive C albicans 05/16/21 11:20 Blood Culture (Wb) - Anticubital Right Blood Culture - Preliminary No growth in 48 hours. 05/16/21 10:50 Blood Culture (Wb) - Anticubital Left Blood Culture - Pr eliminary No growth in 48 hours. 05/16/21 21:20 Urine, Random Legionella Antigen - Final 05/16/21 21:20 Urine, Random Streptococcus pneumoniae Antigen (M - Final 05/16/21 11:25 Mucosa - Nose SARS-CoV-2 Antigen (Rapid) - Final ABG Data ABG results: ABG 05/19/21 14:41 Specimen Type ART Sample Site R Brach pH 7.43 Bicarbonate Actual 26.6 H Total CO2 28 Base Excess 2 O2 Saturation 89 L O2 % 30 ABG pCO2 40.0 ABG pO2 55 L Gabe Test N/A O2 Delivery Device BiPAP POC PEEP 6 POC Pressure Suppt 12 Radiography Diagnostic Testing: Radiology Impression Chest X-Ray 05/19/21 12:25 IMPRESSION: No active intrathoracic disease. Unchanged since May 16, 2021 Electronically Signed: Vel Ontiveros, at 13:21 EDT Tel , Service support , Physical Exam Const alert, oriented x3 and no apparent distress Constitutional Narrative: Obese white male sitting up in a chair, watching television, appears nontoxic Exam Limitations: no limitations HEENT moist oral mucous membranes and oropharynx normal HEENT Narrative: Mallampati 3, no thrush, edentulous Head and Scalp: normocephalic Mouth: oral and palatal mucosa normal Eyes PERRL, EOMs intact bilaterally and conjunctivae normal Neck no lymphadenopathy, supple and no JVD Neck Narrative: Trachea midline Resp normal respiratory effort, no retractions, no use of accessory muscles and clear to auscultation bilaterally Resp Narrative: Diminished but clear Cardio regular rate, regular rhythm, S1 normal heart sound, S2 normal heart sound, no rub, no gallops, no clicks and no JVD; Negative for no murmurs Cardio Narrative: 2 out of 6 systolic murmur GI normal to inspection, nondistended, normoactive bowel sounds, soft to palpation, non-tender, non-distended and hepatosplenomegaly Extremity normal to inspection, full ROM and no clubbing, cyanosis or edema Peripheral Pulses: Yes pulses 2+ throughout Skin no rashes or lesions noted, no wounds, skin turgor normal, no jaundice, no petechiae and no mottling Neuro oriented x3, CN's II-XII intact bilaterally, moves all extremities and no focal motor deficits Sensorium / Orientation: awake, alert, oriented to person, oriented to place and oriented to time Speech: speech normal Psych Psych Narrative: Mildly anxious with flat affect Assessment & Plan Assessment/Plan (1) Acute respiratory failure with hypoxia: (2) Severe sepsis: (3) CELESTE (acute kidney injury): (4) Diabetes mellitus: QUALIFIERS: Diabetes mellitus type: type 2 Diabetes mellitus technician terminal and repeater insulin use: with technician terminal and repeater use Diabetes mellitus complication status: with other specified complication Qualified Code(s): E11.69 - Type 2 diabetes mellitus with other specified complication; Z79.4 - terminal system operator (current) use of insulin PLAN: Severe sepsis secondary to pneumonia -Continue broad-spectrum antibiotics -ID is following -White count is improving -Cultures remain pending Acute hypoxic respiratory failure secondary to pneumonia/bronchiectasis -Patient with worsening respiratory status today -D-dimer was negative on admission and therefore will hold on CTA at this time -Has bronchiectasis on CTA from previously and patient reports a significant h istory of recurrent pneumonias -Continue pulmonary toilet -Acapella was added -Consider vest therapy if not improved tomorrow -Continuous BiPAP--> settings increased from 10/6 to 18/10 to improve recr uitment of alveoli -Repeat chest x-ray from today shows no acute pulmonary process -ABG showed hypoxemia with a PO2 of 55 and a SPO2 of 89% -Echocardiogram was performed and shows a normal EF with no signs of failure -Pulmonary following-appreciate input -will transfer to stepdown with worsening respiratory status DM-2 -A.m. blood sugars 177 -Repeat BMP in a.m. and if sodium elevated consider increasing Lantus from 24 units to 32 units daily -Continue Accu-Cheks and sliding scale CAD/HTN/HPL -Antihypertensives are on hold with borderline blood pressures -Continue statin -Continue Plavix -Monitor blood pressure and restart antihypertensives as able CKD stage III -Baseline serum creatinine is approximately 1.2 -Repeat BMP in a.m. Anxiety/depression -Continue Xanax, BuSpar, Prozac, and trazodone DVT prophylaxis -Continue Lovenox CODE STATUS -Full code Charges/Coding Visit Charges Inpatient E&M: 69315 Subs Hosp L3
--- NOTE | 2021-05-19 16:42 | NURSING ---
warehouse order puller notified of order to transfer PCU step down per primary RN
--- NOTE | 2021-05-19 16:57 | NURSING ---
primary RN notified roomo 111 when clean per tracer bullet section supervisor
[2021-05-19 17:05] LABS: Bedside Glucose 202 mg/dL (70-110)
--- NOTE | 2021-05-19 18:13 | NURSING ---
1745 report called to Becca JENKINS in pcu. Valarie said to this nurse it will be awhile till they will have a clean bed.
--- NOTE | 2021-05-19 18:21 | NURSING ---
[facility] room 111 not ready at this time per Diya Quintero RN.
--- NOTE | 2021-05-19 18:50 | NURSING ---
Primary RN- informed pcu 111 ready per Kaitlin BELL HOLE DIGGER
[2021-05-19] MEDS: traZODone 100 MG Tablet PO (21:55)
[2021-05-19] MEDS: Atorvastatin Calcium 80 MG Tablet PO (21:55)
[2021-05-20] VITALS (17 sets, daily range): BP systolic 107–149; BP diastolic 49–85; PULSE 65–91; RESP 12–18; TEMP 36.6–36.8; O2SAT 86–100
[2021-05-20 02:16] LABS: Absolute Lymphocyte Count 1.12 X10^3/uL (0.83-4.51); Absolute Neutrophil Count 8.6 X10^3/uL (2.0-7.7); Basophil# 0.04 X10^3/uL; Basophil% 0.4 % (0-1); Eosinophil# 0.22 X10^3/uL; Hematocrit 32.2 % (40-54); Lymphocyte # 1.12 X10^3/ul (0.83-4.51); Mean Corp Hgb Conc 31.1 g/dL (32-36); Mean Corpuscular Hgb 29.2 pg (27.0-32.0); Mean Corpuscular Volume 93.9 fL (80-94); Mean Platelet Vol. 10.5 fl (6.2-12.0); Monocyte# 1.18 X10^3/uL; Monocyte% 10.5 % (0-10); NRBC Flagged by Analyzer 0 % (0-5); Neutrophil # 8.58 X10^3/uL (2.7-7.7); Neutrophil % 76.2 % (47-70); Platelet Count 179 K/mm3 (150-450); RBC Distribution Width CV 13.2 % (11.6-14.6); RBC Distribution Width SD 46.1 fl (35.1-43.9); Red Blood Count 3.43 M/mm3 (4.6-6.2); White Blood Count 11.2 K/mm3 (4.4-11.0)
[2021-05-20 02:59] LABS: ALB/GLOB Ratio 0.7 RATIO (0.9-2.4); AST(SGOT) 18 U/L (15-37); Alanine Aminotransfer ALT/SGPT 16 U/L (16-61); Albumin, Serum 2.8 g/dL (3.2-5.0); Alkaline Phosphatase 72 U/L (45-117); Anion Gap 8 (5-15); BUN 29 mg/dL (7-18); BUN/Creat Ratio 14.1 RATIO (10-20); Chloride 104 mmol/L (98-107); Creatinine, Serum 2.05 mg/dL (0.70-1.30); EST Glomerular Filtration Rate 35 mL/min (>60); Est Glom Filt Rate - Afr Amer 43 mL/min (>60); Estimated Creatinine Clearance 38.58 ml/min; Globulin 4.1 g/dL (2.2-4.2); Glucose 188 mg/dL (74-106); Potassium 3.9 mmol/L (3.5-5.1); Protein, Total 6.9 g/dL (6.4-8.2); Sodium Level 140 mmol/L (136-145)
[2021-05-20] MEDS: busPIRone 15 MG TABLET 7.5 MG PO ×3 (05:25→23:02)
[2021-05-20] MEDS: 0.9% Normal Saline 1,000 ML 100 ML IV ×2 (07:59→17:33)
[2021-05-20 08:38] LABS: Bedside Glucose 170 mg/dL (70-110)
[2021-05-20 08:38] LABS: Bedside Glucose 159 mg/dL (70-110)
[2021-05-20] MEDS: Insulin Lispro 100 UNIT/ML INSULN.PEN 8 UNIT SC ×3 (08:53→18:11)
[2021-05-20] MEDS: Insulin Lispro 100 UNIT/ML INSULN.PEN SC ×3 (08:53→23:07)
[2021-05-20 09:00] LABS: Bedside Glucose 163 mg/dL (70-110)
[2021-05-20] MEDS: Pantoprazole Sodium 20 MG Tablet PO (09:00)
[2021-05-20] MEDS: FLUoxetine 20 MG Capsule 60 MG PO (09:00)
[2021-05-20] MEDS: Finasteride 5 MG Tablet PO (09:01)
[2021-05-20] MEDS: ALPRAZolam 0.5 MG Tablet PO ×2 (09:01→23:03)
[2021-05-20] MEDS: Pregabalin 75 MG Capsule PO ×2 (09:01→23:03)
[2021-05-20] MEDS: Enoxaparin 40 MG/0.4 ML Syringe SC (09:01)
[2021-05-20] MEDS: Clopidogrel Bisulfate 75 MG Tablet PO (09:01)
--- NOTE | 2021-05-20 09:48 | PN.CC_ITS ---
Assessment & Plan Assessment/Plan (1) Acute respiratory failure with hypoxia: (2) Severe sepsis: PLAN: RECOMMENDATIONS: 1. Wean supplemental oxygen to maintain saturations at or above 90%. 2. Continue broad-spectrum antimicrobials. 3. Encourage incentive spirometer and Acapella use. Mobilize patient as tolerated. Add Pep therapy 4. Obtain walking oximetry IMPRESSIONS: 1. Severe sepsis Clinical and radiographic concern for underlying pulmonary infectious etiology. The patient was adequately volume resuscitated. Antimicrobials will be continued pending further infectious work-up. The patient remains hemodynamically stable. Patient with recurrent previous pneumonias, but has bronchiectasis on recent CT scan. Continue aggressive pulmonary toileting. 2. Acute hypoxemic respiratory failure Patient with bronchiectasis on CT scan and elevation of the right hemidiaphragm. Patient appears to be responding to Acapella therapy. We'll hold off on vest therapy. Other differential would include congestive heart failure as patient does have a bicuspid mitral valve with murmur on exam. Pulmonary embolism risk would be relatively low given a normal D-dimer and lack of tachycardia on presentation. 3. Acute on chronic kidney disease Resolved. Most likely prerenal in etiology. Creatinine improved with volume expansion. Continue to monitor urine output for now. No current indication for renal replacement therapy. 4. History of coronary artery disease/diabetes mellitus/hypertension/anxiety/depression Complicates care, management, recovery and prognosis. Continue home medications as indicated. This note was generated with [employer] dictation software. It may contain incorrect words, spelling, and punctuation that were not noted in checking the note before signing. Subjective Subjective Patient did well overnight. No acute issues were reported. Patient did wear BiPAP while sleeping. Patient states he had a productive cough this morning and subjectively feels much improved compared to previous. Patient did have a fever, but no hemodynamic instability was reported. Objective Data Objective Data Vital Signs: Vital Signs Temp Pulse Resp BP Pulse Ox 36.6 C 74 18 145/79 H 92 05/20/21 08:05 05/20/21 08:05 05/20/21 08:05 05/20/21 08:05 05/20/21 08:05 Oxygen Flow Rate (L/min) 1 Oxygen Delivery Method Nasal Cannula Weight: 124.919 kg Body Mass Index (BMI) 39.5 Intake & Output: Intake and Output for Last 24 Hours 05/18/21 05/19/21 05/20/21 23:59 23:59 23:59 Intake Total 2219.50 / 2619.50 1394.75 / 1394.75 50.75 / 50.75 Output Total 3525 / 4025 2775 / 2775 350 / 350 Balance -1305.50 / -1405.50 -1380.25 / -1380.25 -299.25 / -299.25 Lab / Micro Data Result Diagrams: 05/20/21 02:10 05/20/21 02:10 Labs: Laboratory Results - last 24 hr 05/19/21 05/19/21 05/19/21 11:40 16:38 20:30 WBC RBC Hgb Hct MCV MCH MCHC RDW Std Deviation RDW Coeff of James Plt Count MPV Immature Gran % (Auto) Neut % (Auto) Lymph % (Auto) Emanuel % (Auto) Eos % (Auto) Baso % (Auto) Absolute Neuts (auto) Absolute Lymphs (auto) Nucleated RBC % Sodium Potassium Chloride Carbon Dioxide Anion Gap BUN Creatinine Estim Creat Clear Calc Est GFR (MDRD) Af Amer Est GFR (MDRD) Non-Af BUN/Creatinine Ratio Glucose Calcium Total Bilirubin AST ALT Alkaline Phosphatase Troponin I < 0.015 Total Protein Albumin Globulin Albumin/Globulin Ratio POC Glucose 159 H 202 H 05/19/21 05/19/21 05/20/21 21:53 23:24 02:10 WBC 11.2 H RBC 3.43 L Hgb 10.0 L Hct 32.2 L MCV 93.9 MCH 29.2 MCHC 31.1 L RDW Std Deviation 46.1 H RDW Coeff of James 13.2 Plt Count 179 MPV 10.5 Immature Gran % (Auto) 0.900 Neut % (Auto) 76.2 H Lymph % (Auto) 10.0 L Emanuel % (Auto) 10.5 H Eos % (Auto) 2.0 Baso % (Auto) 0.4 Absolute Neuts (auto) 8.6 H Absolute Lymphs (auto) 1.12 Nucleated RBC % 0 Sodium Potassium Chloride Carbon Dioxide Anion Gap BUN Creatinine Estim Creat Clear Calc Est GFR (MDRD) Af Amer Est GFR (MDRD) Non-Af BUN/Creatinine Ratio Glucose Calcium Total Bilirubin AST ALT Alkaline Phosphatase Troponin I < 0.015 Total Protein Albumin Globulin Albumin/Globulin Ratio POC Glucose 170 H 05/20/21 05/20/21 02:10 08:51 WBC RBC Hgb Hct MCV MCH MCHC RDW Std Deviation RDW Coeff of James Plt Count MPV Immature Gran % (Auto) Neut % (Auto) Lymph % (Auto) Emanuel % (Auto) Eos % (Auto) Baso % (Auto) Absolute Neuts (auto) Absolute Lymphs (auto) Nucleated RBC % Sodium 140 Potassium 3.9 Chloride 104 Carbon Dioxide 28.0 Anion Gap 8 BUN 29 H Creatinine 2.05 H Estim Creat Clear Calc 38.58 Est GFR (MDRD) Af Amer 43 L Est GFR (MDRD) Non-Af 35 L BUN/Creatinine Ratio 14.1 Glucose 188 H Calcium 9.0 Total Bilirubin 0.60 AST 18 ALT 16 Alkaline Phosphatase 72 Troponin I < 0.015 Total Protein 6.9 Albumin 2.8 L Globulin 4.1 Albumin/Globulin Ratio 0.7 L POC Glucose 163 H Micro: Microbiology 05/16/21 15:55 Sputum, Expectorated/Coughed Gram Stain - Final 05/16/21 15:55 Sputum, Expectorated/Coughed Respiratory Culture - Final Presumptive C albicans 05/16/21 11:20 Blood Culture (Wb) - Anticubital Right Blood Culture - Preliminary No growth in 48 hours. 05/16/21 10:50 Blood Culture (Wb) - Anticubital Left Blood Culture - Preliminary No growth in 48 hours. 05/16/21 21:20 Urine, Random Legionella Antigen - Final 05/16/21 21:20 Urine, Random Streptococcus pneumoniae Antigen (M - Final 05/16/21 11:25 Mucosa - Nose SARS-CoV-2 Antigen (Rapid) - Final ABG Data ABG results: ABG 05/19/21 14:41 Specimen Type ART Sample Site R Brach pH 7.43 Bicarbonate Actual 26.6 H Total CO2 28 Base Excess 2 O2 Saturation 89 L O2 % 30 ABG pCO2 40.0 ABG pO2 55 L Gabe Test N/A O2 Delivery Device BiPAP POC PEEP 6 POC Pressure Suppt 12 Radiography Diagnostic Testing: Radiology Impression Chest X-Ray 05/19/21 12:25 IMPRESSION: No active intrathoracic disease. Unchanged since May 16, 2021 Electronically Signed: Vel Ontiveros, at 13:21 EDT Tel , Service support , Physical Exam Const alert, oriented x3 and no apparent distress General Appearance: cooperative, comfortable and well kempt; Negative for on BiPAP Eyes PERRL, EOMs intact bilaterally, conjunctivae normal and no scleral icterus Chest inspection of chest normal Chest: symmetrical chest wall rise Resp Effort and Inspection: Negative for abnormal respiratory pattern, actively coughing or uses accessory muscles Auscultation: diminished lung sounds; Negative for rales, rhonchi or wheezes Cardio regular rate, regular rhythm and S1 normal heart sound Heart Sounds: murmur diastolic III/ crescendo-decrescendo mid apex GI normal to inspection, nondistended, normoactive bowel sounds Extremity normal to inspection, full ROM and normal capillary refill General Extremity: edema bilateral lower extremity Details: trace Skin no rashes or lesions noted and no wounds Neuro oriented x3, CN's II-XII intact bilaterally, moves all extremities, no focal motor deficits and no sensory deficits noted Psych Appearance: grossly normal Activity / Motor Behavior: appropriate eye contact Mood & Affect: anxious Charges/Coding Visit Charges Inpatient E&M: 11734 Subs Hosp L2
--- NOTE | 2021-05-20 12:45 | PCM.PN.HOSP ---
Subjective Subjective Patient states he feels much better today and does not feel like he is going to . He has been able to be weaned down to 1 L nasal cannula. Patient indicates he has coughed up a bunch of sputum and this has relieved his shortness of breath. He would like to go home and states he can follow-up for outpatient physical therapy versus home care after discharge. Objective Data Objective Data Vital Signs: Vital Signs Temp Pulse Resp BP Pulse Ox 97.8 F 74 18 145/79 H 86 05/20/21 08:05 05/20/21 08:05 05/20/21 08:05 05/20/21 08:05 05/20/21 11:01 Oxygen Flow Rate (L/min) [ 2 AMBULATING with Oxygen #2] Oxygen Flow Rate (L/min) [ 1 AMBULATING with Oxygen #1] Oxygen Flow Rate (L/min) [ 0 AMBULATING on Room Air] Oxygen Flow Rate (L/min) [At 0 REST on Room Air] Oxygen Flow Rate (L/min) 1 Oxygen Delivery Method Nasal Cannula Weight: 124.919 kg Body Mass Index (BMI) 39.5 Intake & Output: Intake and Output for Last 24 Hours 05/18/21 05/19/21 05/20/21 23:59 23:59 23:59 Intake Total 2219.50 / 2619.50 1394.75 / 1394.75 100.75 / 100.75 Output Total 3525 / 4025 2775 / 2775 350 / 350 Balance -1305.50 / -1405.50 -1380.25 / -1380.25 -249.25 / -249.25 Lab / Micro Data Result Diagrams: 05/20/21 02:10 05/20/21 02:10 Labs: Laboratory Results - last 24 hr 05/19/21 05/19/21 05/19/21 11:40 16:38 20:30 WBC RBC Hgb Hct MCV MCH MCHC RDW Std Deviation RDW Coeff of James Plt Count MPV Immature Gran % (Auto) Neut % (Auto) Lymph % (Auto) [place] % (Auto) Eos % (Auto) Baso % (Auto) Absolute Neuts (auto) Absolute Lymphs (auto) Nucleated RBC % Sodium Potassium Chloride Carbon Dioxide Anion Gap BUN Creatinine Estim Creat Clear Calc Est GFR (MDRD) Af Amer Est GFR (MDRD) Non-Af BUN/Creatinine Ratio Glucose Calcium Total Bilirubin AST ALT Alkaline Phosphatase Troponin I < 0.015 Total Protein Albumin Globulin Albumin/Globulin Ratio POC Glucose 159 H 202 H 05/19/21 05/19/21 05/20/21 21:53 23:24 02:10 WBC 11.2 H RBC 3.43 L Hgb 10.0 L Hct 32.2 L MCV 93.9 MCH 29.2 MCHC 31.1 L RDW Std Deviation 46.1 H RDW Coeff of James 13.2 Plt Count 179 MPV 10.5 Immature Gran % (Auto) 0.900 Neut % (Auto) 76.2 H Lymph % (Auto) 10.[address] % (Auto) 10.5 H Eos % (Auto) 2.0 Baso % (Auto) 0.4 Absolute Neuts (auto) 8.6 H Absolute Lymphs (auto) 1.12 Nucleated RBC % 0 Sodium Potassium Chloride Carbon Dioxide Anion Gap BUN Creatinine Estim Creat Clear Calc Est GFR (MDRD) Af Amer Est GFR (MDRD) Non-Af BUN/Creatinine Ratio Glucose Calcium Total Bilirubin AST ALT Alkaline Phosphatase Troponin I < 0.015 Total Protein Albumin Globulin Albumin/Globulin Ratio POC Glucose 170 H 05/20/21 05/20/21 02:10 08:51 WBC RBC Hgb Hct MCV MCH MCHC RDW Std Deviation RDW Coeff of James Plt Count MPV Immature Gran % (Auto) Neut % (Auto) Lymph % (Auto) [place] % (Auto) Eos % (Auto) Baso % (Auto) Absolute Neuts (auto) Absolute Lymphs (auto) Nucleated RBC % Sodium 140 Potassium 3.9 Chloride 104 Carbon Dioxide 28.0 Anion Gap 8 BUN 29 H Creatinine 2.05 H Estim Creat Clear Calc 38.58 Est GFR (MDRD) Af Amer 43 L Est GFR (MDRD) Non-Af 35 L BUN/Creatinine Ratio 14.1 Glucose 188 H Calcium 9.0 Total Bilirubin 0.60 AST 18 ALT 16 Alkaline Phosphatase 72 Troponin I < 0.015 Total Protein 6.9 Albumin 2.8 L Globulin 4.1 Albumin/Globulin Ratio 0.7 L POC Glucose 163 H Micro: Microbiology 05/16/21 15:55 Sputum, Expectorated/Coughed Gram Stain - Final 05/16/21 15:55 Sputum, Expectorated/Coughed Respiratory Culture - Final Presumptive C albicans 05/16/21 11:20 Blood Culture (Wb) - Anticubital Right Blood Culture - Preliminary No growth in 48 hours. 05/16/21 10:50 Blood Culture (Wb) - Anticubital Left Blood Culture - Preliminary No growth in 48 hours. 05/16/21 21:20 Urine, Random Legionella Antigen - Final 05/16/21 21:20 Urine, Random Streptococcus pneumoniae Antigen (M - Final 05/16/21 11:25 Mucosa - Nose SARS-CoV-2 Antigen (Rapid) - Final ABG Data ABG results: ABG 05/19/21 14:41 Specimen Type ART Sample Site R Brach pH 7.43 Bicarbonate Actual 26.6 H Total CO2 28 Base Excess 2 O2 Saturation 89 L O2 % 30 ABG pCO2 40.0 ABG pO2 55 L Gabe Test N/A O2 Delivery Device BiPAP POC PEEP 6 POC Pressure Suppt 12 Radiography Diagnostic Testing: Radiology Impression Chest X-Ray 05/19/21 12:25 IMPRESSION: No active intrathoracic disease. Unchanged since May 16, 2021 Electronically Signed: Kristinestephen Weston, at 13:21 EDT Tel , Service support , Physical Exam Const alert, oriented x3 and no apparent distress Constitutional Narrative: Overweight white male sitting up in a chair, appears comfortable, no signs of respiratory distress, nontoxic-appearing Exam Limitations: no limitations HEENT moist oral mucous membranes HEENT Narrative: No thrush, Mallampati 2-3 Head and Scalp: normocephalic Eyes PERRL and EOMs intact bilaterally Neck supple Neck Narrative: Trachea midline Resp normal respiratory effort, no retractions and no use of accessory muscles Resp Narrative: Few high-pitched wheezes bilaterally, improved some with cough Auscultation: wheezes; Negative for crackles, rales or rhonchi Cardio regular rate, regular rhythm, S1 normal heart sound, S2 normal heart sound, no rub, no gallops, no clicks and no JVD; Negative for no murmurs Cardio Narrative: 2 out of 6 systolic murmur GI normal to inspection, nondistended, normoactive bowel sounds, soft to palpation, non-tender and non-distended Extremity normal to inspection and no clubbing, cyanosis or edema Peripheral Pulses: Yes pulses 2+ throughout Neuro oriented x3, CN's II-XII intact bilaterally, moves all extremities and no focal motor deficits Sensorium / Orientation: awake, alert, oriented to person, oriented to place and oriented to time Speech: speech normal Psych affect normal Assessment & Plan Assessment/Plan (1) Acute respiratory failure with hypoxia: (2) Severe sepsis: (3) Pneumonia: QUALIFIERS: Pneumonia type: due to unspecified organism Laterality: right Lung location: lower lobe of lung Qualified Code(s): J18.9 - Pneumonia, unspecified organism (4) CELESTE (acute kidney injury): (5) Hypertension: (6) Diabetes mellitus: QUALIFIERS: Diabetes mellitus type: type 2 Diabetes mellitus senior living insulin use: with terminal worker use Diabetes mellitus complication status: with other specified complication Qualified Code(s): E11.69 - Type 2 diabetes mellitus with other specified complication; Z79.4 - 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 transplanted heart: [place] heart Associated angina: angina presence unspecified Qualified Code(s): I25.10 - Atherosclerotic heart disease of [place] coronary artery without angina pectoris PLAN: Acute hypoxic respiratory failure secondary to pneumonia/bronchiectasis -Much improved the last 24 hours -Patient now on 1 L nasal cannula with SPO2 of 95% -Suspect related to mucous plugging/collapse -Continue pulmonary toilet and Pep -BiPAP at at bedtime -D-dimer was negative on admission and therefore will hold on CTA at this time -Has bronchiectasis on CTA from previously and patient reports a significant history of recurrent pneumonias -Echocardiogram was performed and shows a normal EF with no signs of failure -If patient stable over the next 24 hours we'll consider discharge home tomorrow -Troponin negative x3 DM-2 -A.m. blood sugars 188 -Increase Lantus from 24 units to 32 units -Continue Accu-Cheks and sliding scale CAD/HTN/HPL -Blood pressures are improving will repeat initiate Coreg 25 mg twice daily but hold rest of antihypertensives for now -Continue statin -Continue Plavix CKD stage III -Baseline serum creatinine is approximately 1.2 -Serum creatinine up to 2 -Discontinue Lasix -IV fluids 100 cc/h continuous -Repeat BMP in a.m. Anxiety/depression -Continue Xanax, BuSpar, Prozac, and trazodone DVT prophylaxis -Continue Lovenox CODE STATUS -Full code Charges/Coding Visit Charges Inpatient E&M: 82335 Subs Hosp L2
[2021-05-20 13:01] LABS: Bedside Glucose 157 mg/dL (70-110)
--- NOTE | 2021-05-20 14:46 | CASEMGMT ---
SW completed Healthcare Power of Food Service Director with patient. Copies were made and given to patient along with original. SW also placed a copy in his chart. Loan CARR
--- NOTE | 2021-05-20 14:55 | CHAPLAIN ---
Type of Pastoral Visit _x__ Initial Visit ___ Follow-up Visit ___ On-call Visit ___ General Patient Visit ___ Spiritual Assessment ___ Family Conference ___ Bereavement ___ Rapid Response ___ Code Blue ___ Other (describe below) Pastoral Care Referral From _x__ Patient ___ Family ___ Nurse ___ Physician ___ Composition Roofer ___ Promotions Firm Accounts Manager ___ Other (describe below) Sacrament/Intervention _x__ Active listening ___ Anointing ___ Christianity ___ Bereavement ___ Communion ___ Sarai exploration ___ _x__ Life review _x__ Prayer ___ Reconciliation ___ Sacrament of Sick _x__ Supportive presence ___ Wedding ___ Other (describe below) Pastoral Comments patient was talkative about his life and his family; pt admits to some worries about his health but states that nurses have been reassuring and helpful; pt welcomes prayers and presence of this energy crop farmer
[2021-05-20 17:55] LABS: Bedside Glucose 132 mg/dL (70-110)
[2021-05-20] MEDS: traZODone 100 MG Tablet PO (23:03)
[2021-05-20] MEDS: Carvedilol 25 MG Tablet PO (23:04)
[2021-05-20] MEDS: Atorvastatin Calcium 80 MG Tablet PO (23:04)
[2021-05-20 23:21] LABS: Bedside Glucose 191 mg/dL (70-110)
[2021-05-21] VITALS (7 sets, daily range): BP systolic 115–136; BP diastolic 73–87; PULSE 71–88; RESP 12–22; TEMP 36.6; O2SAT 91–96
[2021-05-21] MEDS: 0.9% Normal Saline 1,000 ML 100 ML IV (04:00)
[2021-05-21] MEDS: busPIRone 15 MG TABLET 7.5 MG PO (05:52)
[2021-05-21 07:01] LABS: Absolute Lymphocyte Count 0.75 X10^3/uL (0.83-4.51); Absolute Neutrophil Count 6.2 X10^3/uL (2.0-7.7); Basophil# 0.03 X10^3/uL; Basophil% 0.4 % (0-1); Eosinophil# 0.24 X10^3/uL; Eosinophils% 2.9 % (0-5); Hematocrit 33.7 % (40-54); Hemoglobin 10.5 g/dL (13.0-16.5); Lymphocyte # 0.75 X10^3/ul (0.83-4.51); Mean Corp Hgb Conc 31.2 g/dL (32-36); Mean Corpuscular Hgb 29.1 pg (27.0-32.0); Mean Corpuscular Volume 93.4 fL (80-94); Mean Platelet Vol. 10.8 fl (6.2-12.0); NRBC Flagged by Analyzer 0 % (0-5); Neutrophil # 6.16 X10^3/uL (2.7-7.7); Platelet Count 194 K/mm3 (150-450); RBC Distribution Width SD 44.4 fl (35.1-43.9); Red Blood Count 3.61 M/mm3 (4.6-6.2); White Blood Count 8.3 K/mm3 (4.4-11.0)
[2021-05-21 07:38] LABS: ALB/GLOB Ratio 0.6 RATIO (0.9-2.4); AST(SGOT) 24 U/L (15-37); Alanine Aminotransfer ALT/SGPT 16 U/L (16-61); Albumin, Serum 2.7 g/dL (3.2-5.0); Alkaline Phosphatase 71 U/L (45-117); Anion Gap 5 (5-15); BUN 23 mg/dL (7-18); Chloride 109 mmol/L (98-107); Creatinine, Serum 1.77 mg/dL (0.70-1.30); EST Glomerular Filtration Rate 42 mL/min (>60); Est Glom Filt Rate - Afr Amer 50 mL/min (>60); Estimated Creatinine Clearance 44.68 ml/min; Globulin 4.2 g/dL (2.2-4.2); Glucose 125 mg/dL (74-106); Potassium 4.1 mmol/L (3.5-5.1); Protein, Total 6.9 g/dL (6.4-8.2); Sodium Level 142 mmol/L (136-145)
[2021-05-21] MEDS: Insulin Lispro 100 UNIT/ML INSULN.PEN 8 UNIT SC (08:05)
[2021-05-21 08:15] LABS: Bedside Glucose 123 mg/dL (70-110)
--- NOTE | 2021-05-21 08:44 | PCM.PN.INT ---
Assessment & Plan Assessment/Plan (1) Acute respiratory failure with hypoxia: (2) Severe sepsis: PLAN: RECOMMENDATIONS: 1. Wean supplemental oxygen to maintain saturations at or above 90%. 2. Continue broad-spectrum antimicrobials. 3. Encourage incentive spirometer and Acapella use. Mobilize patient as tolerated. 4. Walking oximetry prior to discharge 5. Continue PEP therapy twice daily while at home 6. Follow-up with nurse practitioner in 2 weeks in our office for quantification clarification of lung function IMPRESSIONS: 1. Severe sepsis Clinical and radiographic concern for underlying pulmonary infectious etiology. The patient was adequately volume resuscitated. Antimicrobials will be continued pending further infectious work-up. The patient remains hemodynamically stable. Patient with recurrent previous pneumonias, but has bronchiectasis on recent CT scan. Continue aggressive pulmonary toileting. 2. Acute hypoxemic respiratory failure Patient with bronchiectasis on CT scan and elevation of the right hemidiaphragm. Patient appears to be responding to Acapella therapy. We'll hold off on vest therapy. Other differential would include congestive heart failure as patient does have a bicuspid mitral valve with murmur on exam. Pulmonary embolism risk would be relatively low given a normal D-dimer and lack of tachycardia on presentation. 3. Acute on chronic kidney disease Resolved. Most likely prerenal in etiology. Creatinine improved with volume expansion. Continue to monitor urine output for now. No current indication for renal replacement therapy. 4. History of coronary artery disease/diabetes mellitus/hypertension/anxiety/depression Complicates care, management, recovery and prognosis. Continue home medications as indicated. This note was generated with [employer] dictation software. It may contain incorrect words, spelling, and punctuation that were not noted in checking the note before signing. Subjective Subjective Patient subjectively feels improved compared to previous. Patient has been taken off of oxygen and is feeling like I could go home. Objective Data Objective Data Vital Signs: Vital Signs Temp Pulse Resp BP Pulse Ox 36.6 C 82 18 136/87 H 91 05/21/21 05:50 05/21/21 07:00 05/21/21 05:50 05/21/21 05:50 05/21/21 07:11 Oxygen Flow Rate (L/min) [ 2 AMBULATING with Oxygen #2] Oxygen Flow Rate (L/min) [ 1 AMBULATING with Oxygen #1] Oxygen Flow Rate (L/min) [ 0 AMBULATING on Room Air] Oxygen Flow Rate (L/min) [At 0 REST on Room Air] Oxygen Flow Rate (L/min) 2 Oxygen Delivery Method Room Air Weight: 124.919 kg Body Mass Index (BMI) 39.5 Intake & Output: Intake and Output for Last 24 Hours 05/19/21 05/20/21 05/21/21 23:59 23:59 23:59 Intake Total 1394.75 / 1394.75 2412.42 / 2912.42 1550 / 1550 Output Total 2775 / 2775 1475 / 2350 1500 / 1500 Balance -1380.25 / -1380.25 937.42 / 562.42 50 / 50 Lab / Micro Data Result Diagrams: 05/21/21 06:00 05/21/21 06:00 Labs: Laboratory Results - last 24 hr 05/20/21 05/20/21 05/20/21 08:51 12:39 17:32 WBC RBC Hgb Hct MCV MCH MCHC RDW Std Deviation RDW Coeff of James Plt Count MPV Immature Gran % (Auto) Neut % (Auto) Lymph % (Auto) [place] % (Auto) Eos % (Auto) Baso % (Auto) Absolute Neuts (auto) Absolute Lymphs (auto) Nucleated RBC % Sodium Potassium Chloride Carbon Dioxide Anion Gap BUN Creatinine Estim Creat Clear Calc Est GFR (MDRD) Af Amer Est GFR (MDRD) Non-Af BUN/Creatinine Ratio Glucose Calcium Total Bilirubin AST ALT Alkaline Phosphatase Total Protein Albumin Globulin Albumin/Globulin Ratio POC Glucose 163 H 157 H 132 H 05/20/21 05/21/21 05/21/21 23:00 06:00 06:00 WBC 8.3 RBC 3.61 L Hgb 10.5 L Hct 33.7 L MCV 93.4 MCH 29.1 MCHC 31.2 L RDW Std Deviation 44.4 H RDW Coeff of James 13.0 Plt Count 194 MPV 10.8 Immature Gran % (Auto) 1.700 H Neut % (Auto) 74.0 H Lymph % (Auto) 9.0 L [place] % (Auto) 12.0 H Eos % (Auto) 2.9 Baso % (Auto) 0.4 Absolute Neuts (auto) 6.2 Absolute Lymphs (auto) 0.75 L Nucleated RBC % 0 Sodium 142 Potassium 4.1 Chloride 109 H Carbon Dioxide 28.0 Anion Gap 5 BUN 23 H Creatinine 1.77 H Estim Creat Clear Calc 44.68 Est GFR (MDRD) Af Amer 50 L Est GFR (MDRD) Non-Af 42 L BUN/Creatinine Ratio 13.0 Glucose 125 H Calcium 9.0 Total Bilirubin 0.40 AST 24 ALT 16 Alkaline Phosphatase 71 Total Protein 6.9 Albumin 2.7 L Globulin 4.2 Albumin/Globulin Ratio 0.6 L POC Glucose 191 H 05/21/21 08:04 WBC RBC Hgb Hct MCV MCH MCHC RDW Std Deviation RDW Coeff of James Plt Count MPV Immature Gran % (Auto) Neut % (Auto) Lymph % (Auto) [place] % (Auto) Eos % (Auto) Baso % (Auto) Absolute Neuts (auto) Absolute Lymphs (auto) Nucleated RBC % Sodium Potassium Chloride Carbon Dioxide Anion Gap BUN Creatinine Estim Creat Clear Calc Est GFR (MDRD) Af Amer Est GFR (MDRD) Non-Af BUN/Creatinine Ratio Glucose Calcium Total Bilirubin AST ALT Alkaline Phosphatase Total Protein Albumin Globulin Albumin/Globulin Ratio POC Glucose 123 H Micro: Microbiology 05/16/21 15:55 Sputum, Expectorated/Coughed Gram Stain - Final 05/16/21 15:55 Sputum, Expectorated/Coughed Respiratory Culture - Final Presumptive C albicans 05/16/21 11:20 Blood Culture (Wb) - Anticubital Right Blood Culture - Preliminary No growth in 48 hours. 05/16/21 10:50 Blood Culture (Wb) - Anticubital Left Blood Culture - Preliminary No growth in 48 hours. 05/16/21 21:20 Urine, Random Legionella Antigen - Final 05/16/21 21:20 Urine, Random Streptococcus pneumoniae Antigen (M - Final 05/16/21 11:25 Mucosa - Nose SARS-CoV-2 Antigen (Rapid) - Final Physical Exam Const alert, oriented x3 and no apparent distress General Appearance: cooperative, comfortable and well kempt; Negative for on BiPAP Eyes PERRL, EOMs intact bilaterally, conjunctivae normal and no scleral icterus Chest inspection of chest normal Chest: symmetrical chest wall rise Resp Effort and Inspection: Negative for abnormal respiratory pattern, actively coughing or uses accessory muscles Auscultation: diminished lung sounds; Negative for rales, rhonchi or wheezes Cardio regular rate, regular rhythm and S1 normal heart sound Heart Sounds: murmur diastolic III/ crescendo-decrescendo mid apex GI normal to inspection, nondistended, normoactive bowel sounds Extremity normal to inspection, full ROM and normal capillary refill General Extremity: edema bilateral lower extremity Details: trace Skin no rashes or lesions noted and no wounds Neuro oriented x3, CN's II-XII intact bilaterally, moves all extremities, no focal motor deficits and no sensory deficits noted Psych Appearance: grossly normal Activity / Motor Behavior: appropriate eye contact Mood & Affect: anxious Charges/Coding Visit Charges Inpatient E&M: 93114 Subs Hosp L2
--- NOTE | 2021-05-21 09:29 | CASEMGMT ---
This RN CM to room and pt aware that [facility] had been set up previously and pt still agreeable to [facility]. Per Juliana at [facility], pt's order is for 2L w/ exertion. Pt is on room air at rest and was tested yesterday, qualifying for 2L w/ exertion as well. New order sent to [facility] as pt would like mini tanks at home as he has difficulty with e-tanks and WW. Pt voices no further concerns/needs. Jessica at [facility] notified of pt discharge today, voices understanding. Yessica JENKINS CM
--- NOTE | 2021-05-21 09:55 | DS.PCM_ITS ---
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 Routine Consulting Provider: Stefano Lanier Reason for Consult: respiratory failure due to pneumonia EMERGENT Consult: No MD Notified: Yes Date Notified: 05/16/21 Time Notified: 12:24 Method of Notification: Text 05/19/21 12:48 Consult: Infectious Disease Routine Consulting Provider: Raheem Corona Reason for Consult: PNA EMERGENT Consult: No Notified: Yes Date Notified: 05/19/21 Time Notified: 12:48 Method of Notification: Verbal Reason For Visit: ACUTE HYPOXIC RESPIRATORY FAILURE DUE TO PNEUMONIA Diagnosis Discharge Diagnosis (1) Acute respiratory failure with hypoxia: Status: Acute Code(s): J96.01 - Acute respiratory failure with hypoxia (2) Severe sepsis: Status: Acute Code(s): A41.9 - Sepsis, unspecified organism; R65.20 - Severe sepsis without septic shock Medications at Discharge Home Medications acetaminophen 1,000 mg PO BID PRN PRN 02/11/21 alprazolam 0.5 mg PO BID 02/11/21 atorvastatin 80 mg PO QHS 02/11/21 buspirone 7.5 mg PO TID 02/11/21 carvedilol 25 mg PO BID 02/11/21 clopidogrel 75 mg PO DAILY 02/11/21 exenatide microspheres 0.65 ml SQ SA 02/11/21 finasteride 5 mg PO DAILY 02/11/21 fluoxetine 20 mg PO DAILY 02/11/21 fluoxetine 40 mg PO DAILY 02/11/21 furosemide 40 mg PO DAILY 02/11/21 hydralazine 20 mg GT TID 02/11/21 insulin detemir U-100 24 unit SQ QHS 02/11/21 insulin lispro 8 unit SQ TIDCM 02/11/21 isosorbide mononitrate 30 mg PO DAILY 02/11/21 losartan 100 mg PO DAILY 02/11/21 nitroglycerin 0.4 mg SL Q5M PRN 02/11/21 pantoprazole 20 mg PO DAILY 02/11/21 spironolactone 50 mg PO DAILY 02/11/21 trazodone 100 mg PO QHS 02/11/21 pregabalin [Lyrica] 75 mg PO BID 05/13/21 levofloxacin 750 mg PO DAILY #2 tab 05/21/21 Hospital Course Operations None Procedures 2-D Echocardiogram (EF 60%, bileaflet mitral valve) Summary of Care Provided Minutes Spent on Discharge: 42 Hospital Course: Mr. Linda is a 61-year-old white male who presented to emergency department at [facility] on 05/16/2021 with a chief complaint of shortness of breath. He had a recent admission for chest pain in which she was discharged on 05/14. At that time a stress test was performed and was negative. He reported on presentation that his shortness of breath began the day prior to presentation and it gradually worsened to the point where he called the squad to bring him to the emergency department. Upon squad arrival his oxygen saturations were 70% on room air and he was placed on a nonrebreather with improving sats to 90%. He was admitted initially to the ICU for severe sepsis secondary to suspected pneumonia and placed on continuous noninvasive ventilation. Covid test was negative. He was treated with IV antibiotics empirically. Blood cultures were negative. Urine Legionella and strep pneumo antigens were negative. Respiratory culture was positive but only for Tamiko albicans. He was seen by infectious disease and recommended to complete a course of oral antibiotics with Levaquin at discharge for total of 5 days for suspected pneumonia. He has had a previous CTA of his chest that showed bronchiectasis. His chest x-ray on admission showed no active disease. He was able to be transferred out of the ICU to general medical floor on 05/18/2021 unfortunately had some decompensation on 05/19/2021 and was transferred back to stepdown for closer monitoring as he was very talkative requiring continuous noninvasive ventilation again. It was suspected that he had some lung collapse with his bronchiectasis and Acapella and more aggressive pulmonary toilet was added and seemed to improve his symptoms dramatically. He had some mild CELESTE during his hospitalization and his Lasix was held. On the day of discharge his serum creatinine had trended down to 1.77. He had an echocardiogram at his previous admission earlier this month which showed an EF of 60% no regional wall motion abnormalities with a bileaflet mitral valve but had mild focal calcification. He was instructed to hold his Lasix and his spironolactone until Wednesday and restart them at that time. He was discharged with a prescription for Levaquin for 2 more days to complete his oral antibiotics for his pneumonia and scheduled follow-up with Dr. Foreman's [employer] in 2 weeks in the outpatient pulmonary setting. He is also instructed to continue his Acapella and incentive spirometry at home after discharge. An ambulatory pulse ox is being performed and I suspect the patient will need temporary oxygen at discharge although this is pending at this time. Physical Exam Narrative Patient states that he is feeling well today. Is anxious to go home. States that his anniversary with his fianc?e is tomorrow. Const alert, oriented x3 and no apparent distress Constitutional Narrative: Obese white male sitting up in a chair, appears well, nontoxic General Appearance: cooperative and comfortable HEENT normocephalic, head/scalp atraumatic and moist oral mucous membranes Eyes PERRL, EOMs intact bilaterally and conjunctivae normal Neck supple Neck Narrative: Trachea midline, no JVD Resp normal respiratory effort, no retractions, no use of accessory muscles and clear to auscultation bilaterally Resp Narrative: Diminished right base secondary to elevated hemidiaphragm Auscultation: Negative for crackles, rales, rhonchi or wheezes Cardio regular rate, regular rhythm, S1 normal heart sound, S2 normal heart sound, no rub, no gallops, no clicks and no JVD Cardio Narrative: 2 out of 6 systolic murmur GI normal to inspection, nondistended, normoactive bowel sounds, soft to palpation, non-tender and non-distended; Negative for hepatosplenomegaly GI Narrative: Obese Extremity normal to inspection and no clubbing, cyanosis or edema Skin no rashes or lesions noted, no wounds, skin turgor normal and no jaundice Neuro oriented x3, CN's II-XII intact bilaterally, moves all extremities and no focal motor deficits Neuro Narrative: Generalized weakness proximal greater than distal Sensorium / Orientation: awake, alert, oriented to person, oriented to place and oriented to time Speech: speech normal Psych affect normal Psych Narrative: Very pleasant and anxious to go home Weight / BMI Weight Weight: 124.919 kg Body Mass Index (BMI) 39.5 ABG / Lab / Microbiology Data Result Diagrams: 05/21/21 06:00 05/21/21 06:00 Laboratory: Laboratory Results - last 24 hr 05/20/21 05/20/21 05/20/21 12:39 17:32 23:00 WBC RBC Hgb Hct MCV MCH MCHC RDW Std Deviation RDW Coeff of James Plt Count MPV Immature Gran % (Auto) Neut % (Auto) Lymph % (Auto) [place] % (Auto) Eos % (Auto) Baso % (Auto) Absolute Neuts (auto) Absolute Lymphs (auto) Nucleated RBC % Sodium Potassium Chloride Carbon Dioxide Anion Gap BUN Creatinine Estim Creat Clear Calc Est GFR (MDRD) Af Amer Est GFR (MDRD) Non-Af BUN/Creatinine Ratio Glucose Calcium Total Bilirubin AST ALT Alkaline Phosphatase Total Protein Albumin Globulin Albumin/Globulin Ratio POC Glucose 157 H 132 H 191 H 05/21/21 05/21/21 05/21/21 06:00 06:00 08:04 WBC 8.3 RBC 3.61 L Hgb 10.5 L Hct 33.7 L MCV 93.4 MCH 29.1 MCHC 31.2 L RDW Std Deviation 44.4 H RDW Coeff of James 13.0 Plt Count 194 MPV 10.8 Immature Gran % (Auto) 1.700 H Neut % (Auto) 74.0 H Lymph % (Auto) 9.0 L [place] % (Auto) 12.0 H Eos % (Auto) 2.9 Baso % (Auto) 0.4 Absolute Neuts (auto) 6.2 Absolute Lymphs (auto) 0.75 L Nucleated RBC % 0 Sodium 142 Potassium 4.1 Chloride 109 H Carbon Dioxide 28.0 Anion Gap 5 BUN 23 H Creatinine 1.77 H Estim Creat Clear Calc 44.68 Est GFR (MDRD) Af Amer 50 L Est GFR (MDRD) Non-Af 42 L BUN/Creatinine Ratio 13.0 Glucose 125 H Calcium 9.0 Total Bilirubin 0.40 AST 24 ALT 16 Alkaline Phosphatase 71 Total Protein 6.9 Albumin 2.7 L Globulin 4.2 Albumin/Globulin Ratio 0.6 L POC Glucose 123 H Microbiology: Microbiology 05/16/21 15:55 Sputum, Expectorated/Coughed Gram Stain - Final 05/16/21 15:55 Sputum, Expectorated/Coughed Respiratory Culture - Final Presumptive C albicans 05/16/21 11:20 Blood Culture (Wb) - Anticubital Right Blood Culture - Preliminary No growth in 48 hours. 05/16/21 10:50 Blood Culture (Wb) - Anticubital Left Blood Culture - Preliminary No growth in 48 hours. 05/16/21 21:20 Urine, Random Legionella Antigen - Final 05/16/21 21:20 Urine, Random Streptococcus pneumoniae Antigen (M - Final 05/16/21 11:25 Mucosa - Nose SARS-CoV-2 Antigen (Rapid) - Final D/C Instructions Discharge Diet: Low fat / Low cholesterol and 1800 Calorie Control Diet Discharge Activity: Return to Normal Activity Meaningful Use Info Meaningful Use Diagnoses (Choose all that apply): None applicable Discharge Plan Admission Admit Date/Time: 05/16/21 12:25 Primary Reason for Your Visit: Pneumonia Attending Provider: Alicia Larkin Consulting Providers: Raheem Corona ; Stefano Lanier Instructions Patient Instructions: Pneumonia Additional Instructions / Restrictions: Please continue to use Acapella 4 times daily Discharge Orders/Prescriptions Prescriptions: Continued fluoxetine 40 MG capsule 40 mg PO DAILY RF: 0 hydralazine 10 MG tablet 20 mg GT TID RF: 0 atorvastatin 80 MG tablet 80 mg PO QHS RF: 0 carvedilol 25 MG tablet 25 mg PO BID RF: 0 isosorbide mononitrate 30 MG tablet extended release 24 hr 30 mg PO DAILY RF: 0 clopidogrel 75 MG tablet 75 mg PO DAILY RF: 0 acetaminophen 500 MG tablet 1,000 mg PO BID PRN PRN (Reason: Pain 1-10 Or Fever) RF: 0 pantoprazole 20 MG tablet 20 mg PO DAILY RF: 0 alprazolam 0.5 MG tablet 0.5 mg PO BID RF: 0 trazodone 100 MG tablet 100 mg PO QHS RF: 0 nitroglycerin 0.4 MG tablet, sublingual 0.4 mg SL Q5M PRN (Reason: Chest Pain) RF: 0 buspirone 7.5 MG tablet 7.5 mg PO TID RF: 0 losartan 100 MG tablet 100 mg PO DAILY RF: 0 fluoxetine 20 MG capsule 20 mg PO DAILY RF: 0 finasteride 5 MG tablet 5 mg PO DAILY RF: 0 insulin lispro 100 UNIT/ML insulin pen 8 unit SQ TIDCM RF: 0 insulin detemir U-100 100 UNIT/ML insulin pen 24 unit SQ QHS RF: 0 exenatide microspheres 2 MG/0.65 ML pen injector 0.65 ml SQ SA RF: 0 pregabalin [Lyrica] 75 mg Capsule 75 mg PO BID RF: 0 levofloxacin 750 MG tablet 750 mg PO DAILY Qty: 2 RF: 0 Held furosemide 40 MG tablet 40 mg PO DAILY RF: 0 Hold Instructions: Resume on 05/24/21. spironolactone 50 MG tablet 50 mg PO DAILY RF: 0 Hold Instructions: Resume on 05/24/21. Referrals / Follow Up: SAMM VALENCIA [Other] - 05/26/21 12:40 pm (Please go to the same appointment that you had set up already. ) Rosendo Foreman MD [STAFF PHYSICIAN] - Within 1 Month Disposition Disposition (needs filled in before D/C Order can be placed): Home Health Service Charges/Coding Visit Charges Inpatient E&M: 08399 Disch Hosp
[2021-05-21] MEDS: Enoxaparin 40 MG/0.4 ML Syringe SC (10:02)
[2021-05-21] MEDS: Clopidogrel Bisulfate 75 MG Tablet PO (10:02)
[2021-05-21] MEDS: Finasteride 5 MG Tablet PO (10:03)
[2021-05-21] MEDS: Pantoprazole Sodium 20 MG Tablet PO (10:03)
[2021-05-21] MEDS: Carvedilol 25 MG Tablet PO (10:03)
[2021-05-21] MEDS: FLUoxetine 20 MG Capsule 60 MG PO (10:03)
[2021-05-21] MEDS: Pregabalin 75 MG Capsule PO (10:09)
[2021-05-21] MEDS: ALPRAZolam 0.5 MG Tablet PO (10:09)
--- NOTE | 2021-05-21 10:18 | PCM.DC ---
Discharge Instructions Diet Discharge Diet: Low fat / Low cholesterol and 1800 Calorie Control Diet Follow Up Care Test Results: Test results from this visit will be discussed in further detail at your follow-up appointment, if applicable. Discharge Plan Admission Admit Date/Time: 05/16/21 12:25 Primary Reason for Your Visit: Pneumonia Attending Provider: Alicia Larkin Consulting Providers: Raheem Corona ; Stefano Lanier Instructions Patient Instructions: Pneumonia Additional Instructions / Restrictions: Please continue to use Acapella 4 times daily Discharge Orders/Prescriptions Prescriptions: Continued fluoxetine 40 MG capsule 40 mg PO DAILY RF: 0 hydralazine 10 MG tablet 20 mg GT TID RF: 0 atorvastatin 80 MG tablet 80 mg PO QHS RF: 0 carvedilol 25 MG tablet 25 mg PO BID RF: 0 isosorbide mononitrate 30 MG tablet extended release 24 hr 30 mg PO DAILY RF: 0 clopidogrel 75 MG tablet 75 mg PO DAILY RF: 0 acetaminophen 500 MG tablet 1,000 mg PO BID PRN PRN (Reason: Pain 1-10 Or Fever) RF: 0 pantoprazole 20 MG tablet 20 mg PO DAILY RF: 0 alprazolam 0.5 MG tablet 0.5 mg PO BID RF: 0 trazodone 100 MG tablet 100 mg PO QHS RF: 0 nitroglycerin 0.4 MG tablet, sublingual 0.4 mg SL Q5M PRN (Reason: Chest Pain) RF: 0 buspirone 7.5 MG tablet 7.5 mg PO TID RF: 0 losartan 100 MG tablet 100 mg PO DAILY RF: 0 fluoxetine 20 MG capsule 20 mg PO DAILY RF: 0 finasteride 5 MG tablet 5 mg PO DAILY RF: 0 insulin lispro 100 UNIT/ML insulin pen 8 unit SQ TIDCM RF: 0 insulin detemir U-100 100 UNIT/ML insulin pen 24 unit SQ QHS RF: 0 exenatide microspheres 2 MG/0.65 ML pen injector 0.65 ml SQ SA RF: 0 pregabalin [Lyrica] 75 mg Capsule 75 mg PO BID RF: 0 levofloxacin 750 MG tablet 750 mg PO DAILY Qty: 2 RF: 0 Held furosemide 40 MG tablet 40 mg PO DAILY RF: 0 Hold Instructions: Resume on 05/24/21. spironolactone 50 MG tablet 50 mg PO DAILY RF: 0 Hold Instructions: Resume on 05/24/21. Referrals / Follow Up: SAMM VALENCIA [Other] - 05/26/21 12:40 pm (Please go to the same appointment that you had set up already. ) Rosendo Foreman MD [STAFF PHYSICIAN] - Within 1 Month Disposition Disposition (needs filled in before D/C Order can be placed): Home Health Service
--- NOTE | 2021-05-21 11:49 | PHA.DC.MC ---
Pharmacy Service has performed discharge medication reconciliation and counseling for this patient. 1. LEVOFLOXACIN 750MG PO DAILY X 2 DOSES The patient's discharge medication list was reviewed for discrepancies and discrepancies were resolved. Home Medications acetaminophen 1,000 mg PO BID PRN PRN 02/11/21 alprazolam 0.5 mg PO BID 02/11/21 atorvastatin 80 mg PO QHS 02/11/21 buspirone 7.5 mg PO TID 02/11/21 carvedilol 25 mg PO BID 02/11/21 clopidogrel 75 mg PO DAILY 02/11/21 exenatide microspheres 0.65 ml SQ SA 02/11/21 finasteride 5 mg PO DAILY 02/11/21 fluoxetine 20 mg PO DAILY 02/11/21 fluoxetine 40 mg PO DAILY 02/11/21 furosemide 40 mg PO DAILY 02/11/21 hydralazine 20 mg GT TID 02/11/21 insulin detemir U-100 24 unit SQ QHS 02/11/21 insulin lispro 8 unit SQ TIDCM 02/11/21 isosorbide mononitrate 30 mg PO DAILY 02/11/21 losartan 100 mg PO DAILY 02/11/21 nitroglycerin 0.4 mg SL Q5M PRN 02/11/21 pantoprazole 20 mg PO DAILY 02/11/21 spironolactone 50 mg PO DAILY 02/11/21 trazodone 100 mg PO QHS 02/11/21 pregabalin [Lyrica] 75 mg PO BID 05/13/21 levofloxacin 750 mg PO Q24H #2 tab 05/21/21 The patient was counseled on the following discharge medications and changes in medications for homegoing were reviewed. The Reason for Use, instructions for use, and potential side effects were reviewed for all new medications. The patient's questions regarding all of their medications were answered. The patient was able to verbally demonstrate an understanding of their discharge medications.
--- NOTE | 2021-05-22 12:45 | CASEMGMT ---
[facility] Discharge Follow-Up Phone Call. Haydee: Marisabel Strata: 4 Discharge Date: 05/21/21 Adm Dx: Acute Hypoxic Resp failure d/t PNA Call to pt to inquire about how he has been doing since being discharged from the hospital. Pt stated, I've been pretty good. He states continues to have issues w/incontinence and plans to contact his PCP re: this. 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 He denies having any questions about the medications or discharge instructions. He is aware of the upcoming appts w/his PCP and w/Dr Foreman, stating he puts all of his appts in his phone it it sends out reminders to him when appts are soon. He states [facility] has made arrangements to come to his home today to deliver smaller oxygen tanks. He states he does have a pulse ox to use as needed. He states [facility] has not contacted him yet re: SOC. He was made aware their contact # is on his discharge instructions if he needs to reach them, but states he plans to just wait to hear from them. He denies having any questions/concerns/needs. Zelalem BACA RN, CM
== END 2021-05-21 11:56 | disposition home health service (06) | DRG 871 ==
LOC: ED 11:55 → ICU 13:31 → MS3 21:01 → PCU 05-20 13:53
PROVIDERS: Internal Medicine Critical Care Medicine; Admitting Provider Student in an Organized Health Care Education/Training Program; Emergency Provider Emergency Medicine; Visit Provider Internal Medicine
DX: A41.9 Sepsis, unspecified organism (principal); J96.01 Acute respiratory failure with hypoxia; J18.9 Pneumonia, unspecified organism; N17.9 Acute kidney failure, unspecified; E11.22 Type 2 diabetes mellitus with diabetic chronic kidney disease; E11.51 Type 2 diabetes mellitus with diabetic peripheral angiopathy without gangrene; I12.9 Hypertensive chronic kidney disease with stage 1 through stage 4 chronic kidney disease, or unspecified chronic kidney disease; J47.9 Bronchiectasis, uncomplicated; E11.69 Type 2 diabetes mellitus with other specified complication; F41.9 Anxiety disorder, unspecified; N18.32 Chronic kidney disease, stage 3b; I25.10 Atherosclerotic heart disease of native coronary artery without angina pectoris; F32.9 Major depressive disorder, single episode, unspecified; I25.2 Old myocardial infarction; R65.20 Severe sepsis without septic shock; Z79.4 Long term (current) use of insulin; Z79.899 Other long term (current) drug therapy; Z95.5 Presence of coronary angioplasty implant and graft; Z83.3 Family history of diabetes mellitus; Z87.01 Personal history of pneumonia (recurrent); Z87.442 Personal history of urinary calculi
CPT/HCPCS: 36415; 36600; 71045; 78452; 80048; 80053; 80061; 80202; 82803; 82962; 83605; 83690; 83880; 84484; 85025; 85379; 87040; 87070; 87205; 87426; 87449; 87641; 93005; 93017; 93306; 94002; 94003; 94660; 94667; 94668; 94762; 96361; 96374; 97110; 97162; 97166; 97530; 97535; 99218; 99285; A9500; J7030; J7040; J7050; A4216; G0378; J2405; J2785

== ENCOUNTER 2021-05-24 14:55 | Emergency (ER) | payer MEDICARE, MEDICAID, SELFPAY ==
[2021-05-16 15:31] VITALS: BMI 39.5
[2021-05-24 14:55] VITALS: BP 128/72; PULSE 71; RESP 16; TEMP 36.1; O2SAT 93; BMI 37.3
--- NOTE | 2021-05-24 16:26 | RAD_ITS ---
STUDY: X-RAY CHEST REASON FOR EXAM: Male, 61 years old. SOB TECHNIQUE: AP COMPARISON: 05/19/2021 FINDINGS: Lungs continue to be hypoexpanded with increased triangular opacity in the right lung base. Persistent atelectasis in left lung base. There is no demonstrated pleural abnormality. Normal size heart. Normal mediastinum and pat. Normal visualized pulmonary arteries. Normal visualized aortic arch and descending thoracic aorta. No acute bony process. There is no demonstrated abnormality of the visualized soft tissue structures of the upper abdomen. RAD/Chest 1 View (Portable) IMPRESSION: 1. Worsening atelectasis in the right lung base, possibly right middle lobe. Electronically Signed: Nelson Mullen MD (Brooks) at 17:18 EDT , Service support ,
--- NOTE | 2021-05-24 16:26 | EKG12_ITS ---
Test Reason : EDEMA Blood Pressure : / mmHG Vent. Rate : 072 BPM Atrial Rate : 072 BPM P-R Int : 216 ms QRS Dur : 096 ms QT Int : 428 ms P-R-T Axes : 087 023 043 degrees QTc Int : 468 ms Sinus rhythm with 1st degree A-V block Otherwise normal ECG Confirmed by ARAMIS JOHNS, MAURO ([id number]), purchasing expeditor SHARAN DOE ([id number]) on 05/27/2021 8:58:04 AM Referred By: LEIDA Confirmed By:MAURO SELF MD
--- NOTE | 2021-05-24 16:42 | EDS_ITS ---
HPI History of Present Illness Chief Complaint: Edema Informant: patient and family Narrative Narrative: Patient is a 61-year-old male with a past medical history of CAD, hypertension who presents to the emergency department for bilateral lower leg swelling. Patient was just discharged from the hospital 3 days ago when he was treated for sepsis secondary to pneumonia. Patient is no longer on antibiotics. His legs have been swollen over the past few days. This is the first time that they have noticed this. He was also treated for pulmonary edema this last hospital stay. He is on Lasix and spironolactone. He does have baseline shortness of breath that does not seem to be worse than normal. He has no orthopnea. He denies any chest pain or palpitations. No abdominal pain. He still has a mild cough but denies any fevers or chills. He denies any history of DVT/PE. He does have stents in his right leg. [facility] Medical History (Updated 05/24/21 @ 18:[address] Jean-Claude Mae, DO) Amputation of one or more toes CAD (coronary artery disease) Chest pain Diabetes GERD (gastroesophageal reflux disease) Hypertension Kidney stones Kidney stones Myocardial infarct PAD (peripheral artery disease) Pulmonary nodule, left Home Medications acetaminophen 1,000 mg PO BID PRN PRN 02/11/21 [History Last Taken 02/10/21] alprazolam 0.5 mg PO BID 02/11/21 [History Last Taken 02/13/21] atorvastatin 80 mg PO QHS 02/11/21 [History Last Taken 02/12/21] buspirone 7.5 mg PO TID 02/11/21 [History Last Taken 02/13/21] carvedilol 25 mg PO BID 02/11/21 [History Last Taken 02/13/21] clopidogrel 75 mg PO DAILY 02/11/21 [History Last Taken 02/13/21] exenatide microspheres 0.65 ml SQ SA 02/11/21 [History Last Taken 02/08/21] finasteride 5 mg PO DAILY 02/11/21 [History Last Taken 02/13/21] fluoxetine 20 mg PO DAILY 02/11/21 [History Last Taken 02/13/21] fluoxetine 40 mg PO DAILY 02/11/21 [History Last Taken 02/13/21] furosemide 40 mg PO DAILY 02/11/21 [History Last Taken 02/13/21] hydralazine 20 mg GT TID 02/11/21 [History Last Taken 02/13/21] insulin detemir U-100 24 unit SQ QHS 02/11/21 [History Last Taken 02/12/21] insulin lispro 8 unit SQ TIDCM 02/11/21 [History Last Taken 02/12/21] isosorbide mononitrate 30 mg PO DAILY 02/11/21 [History Last Taken 02/13/21] losartan 100 mg PO DAILY 02/11/21 [History Last Taken 02/13/21] nitroglycerin 0.4 mg SL Q5M PRN 02/11/21 [History Last Taken 02/08/21] pantoprazole 20 mg PO DAILY 02/11/21 [History Last Taken 02/13/21] spironolactone 50 mg PO DAILY 02/11/21 [History Last Taken 02/13/21] trazodone 100 mg PO QHS 02/11/21 [History Last Taken 02/13/21] pregabalin [Lyrica] 75 mg PO BID 05/13/21 [History Last Taken Unknown] levofloxacin 750 mg PO Q24H #2 tab 05/21/21 [Rx Last Taken Unknown] Allergy/AdvReac Type Severity Reaction Status Date / Time allopurinol AdvReac Vomiting Verified 05/24/21 14:59 Influenza Virus Vaccines AdvReac Vomiting Verified 05/24/21 14:59 pneumococcal vaccine AdvReac Vomiting Verified 05/24/21 14:59 Family History Other Diabetes Heart disease Surgical History (Updated 05/24/21 @ 17:25 by Sumeet Nichols) History of coronary artery stent placement History of lobectomy of lung Stented coronary artery Social History Smoking Status: Never smoker ROS ROS ED Constitutional Constitutional ED: Denies chills or fever(s) Eyes Eyes: Denies change in vision ENT ENT ED: Denies epistaxis or rhinorrhea Cardiovascular Cardiovascular: Denies chest pain or palpitations Respiratory/Chest Respiratory/Chest: Reports cough and dyspnea Gastrointestinal Gastrointestinal: Denies abdominal pain, diarrhea, nausea or vomiting Genitourinary Genitourinary ED: Denies dysuria, hematuria or urinary frequency Musculoskeletal Musculoskeletal: Denies back pain or neck pain Integumentary Denies rash Neurologic Neurologic: Denies dizziness, headache(s) or weakness EXAM Physical Exam Const Vital Signs: 05/24/21 14:55 05/24/21 17:20 05/24/21 19:12 Temperature 96.9 F L Temperature Source Temporal Pulse Rate 71 74 72 Respiratory Rate 16 14 18 Respiratory Effort Normal Blood Pressure 128/72 H 135/66 H 176/88 H Blood Pressure Mean 90 89 117 Pulse Ox 93 Oxygen Delivery Method Room Air Positive well nourished and well developed General Appearance ED: well developed and NAD HEENT Reports normocephalic, head/scalp atraumatic and moist mucous membranes Eyes PERRL and EOMs intact bilaterally Neck supple Chest Wall inspection of chest normal Resp normal respiratory effort and clear to auscultation bilaterally Auscultation: Negative for rales, rhonchi or wheezes Cardio regular rate, regular rhythm and no murmurs GI normal to inspection, nondistended, normoactive bowel sounds and non-tender Palpation: soft; Negative for guarding or rebound tenderness present Extremity normal to inspection Extremity Narrative: Symmetrical 1+ pitting edema bilateral lower extremities. He does have tenderness of both lower extremities. Neurovascular intact. Full range of motion. General Extremety ED: Yes edema General Extremity: edema Neuro CN's II-XII intact bilaterally and no sensory deficits noted Sensorium / Orientation: alert Motor Exam: strength 5/5 throughout Psych mental status grossly normal Skin no rashes or lesions noted MDM MDM MDM Narrative Medical decision making narrative: Patient presents to the emergency department for swelling of his bilateral lower extremities. Upon arrival to the emergency department he is satting 93% on room air. He does have supplemental oxygen at home he supposed to be wearing. He denies any significant shortness of breath past his baseline. Will check basic lab work along with chest x-ray and EKG. Patient's lab work-up did not reveal any significant acute abnormality. His BNP is elevated past where it was previously. Otherwise his hemoglobin appears to be at baseline. Does not have a high white blood cell count. His troponin is within normal limits. He is now telling me he just restarted his Lasix today. I believe that this will help with his peripheral edema. I recommended elevating his legs above the level of his heart. He can use some compression stockings as well. He is to follow-up with his PCP. Return precautions are reviewed including any significant shortness of breath, orthopnea. He understands and is agreeable to plan. Discharged home in stable condition. All questions were answered. Lab Data Labs: Laboratory Results - last 24 hr 05/24/21 05/24/21 05/24/21 17:15 17:15 17:15 WBC 8.2 RBC 3.45 L Hgb 10.1 L Hct 32.4 L MCV 93.9 MCH 29.3 MCHC 31.2 L RDW Std Deviation 45.4 H RDW Coeff of James 13.2 Plt Count 235 MPV 10.2 Immature Gran % (Auto) 1.800 H Neut % (Auto) 63.5 Lymph % (Auto) 22.4 Pitkin % (Auto) 10.0 Eos % (Auto) 1.9 Baso % (Auto) 0.4 Absolute Neuts (auto) 5.2 Absolute Lymphs (auto) 1.84 Nucleated RBC % 0 Sodium 142 Potassium 4.3 Chloride 108 H Carbon Dioxide 29.0 Anion Gap 5 BUN 32 H Creatinine 2.00 H Estim Creat Clear Calc 39.54 Est GFR (MDRD) Af Amer 44 L Est GFR (MDRD) Non-Af 36 L BUN/Creatinine Ratio 16.0 Glucose 143 H Calcium 8.8 Troponin I High Sens 10.4 B-Natriuretic Peptide 149.2 H Radiography Diagnostic Testing: Radiology Impression Chest X-Ray 05/24/21 16:26 IMPRESSION: 1. Worsening atelectasis in the right lung base, possibly right middle lobe. Electronically Signed: Nelson Mullen MD (Brooks) at 17:18 EDT , Service support , Single view portable x-ray interpreted by myself. There is right hemidiaphragm elevation with associated atelectasis. No significant pulmonary edema. Agree with radiologist interpretation. EKG Initial EKG: Attestation: I personally reviewed and interpreted this EKG as follows: (Rate of 72 bpm in sinus rhythm. Prolonged TX interval with first-degree AV block. Otherwise normal intervals. Normal axis. No significant ST elevations or depressions. No T wave abnormalities.) Discharge Plan Triage Chief Complaint: Edema ED Provider: Jean-Claude Mae Dx/Rx/DC Orders Clinical Impression: Edema, peripheral Instructions: ED Peripheral Edema, Bilateral Prescriptions: No Action fluoxetine 40 MG capsule 40 mg PO DAILY RF: 0 furosemide 40 MG tablet 40 mg PO DAILY RF: 0 Hold Instructions: Resume on 05/24/21. hydralazine 10 MG tablet 20 mg GT TID RF: 0 atorvastatin 80 MG tablet 80 mg PO QHS RF: 0 carvedilol 25 MG tablet 25 mg PO BID RF: 0 isosorbide mononitrate 30 MG tablet extended release 24 hr 30 mg PO DAILY RF: 0 clopidogrel 75 MG tablet 75 mg PO DAILY RF: 0 acetaminophen 500 MG tablet 1,000 mg PO BID PRN PRN (Reason: Pain 1-10 Or Fever) RF: 0 pantoprazole 20 MG tablet 20 mg PO DAILY RF: 0 alprazolam 0.5 MG tablet 0.5 mg PO BID RF: 0 trazodone 100 MG tablet 100 mg PO QHS RF: 0 nitroglycerin 0.4 MG tablet, sublingual 0.4 mg SL Q5M PRN (Reason: Chest Pain) RF: 0 buspirone 7.5 MG tablet 7.5 mg PO TID RF: 0 losartan 100 MG tablet 100 mg PO DAILY RF: 0 fluoxetine 20 MG capsule 20 mg PO DAILY RF: 0 finasteride 5 MG tablet 5 mg PO DAILY RF: 0 spironolactone 50 MG tablet 50 mg PO DAILY RF: 0 Hold Instructions: Resume on 05/24/21. insulin lispro 100 UNIT/ML insulin pen 8 unit SQ TIDCM RF: 0 insulin detemir U-100 100 UNIT/ML insulin pen 24 unit SQ QHS RF: 0 exenatide microspheres 2 MG/0.65 ML pen injector 0.65 ml SQ SA RF: 0 pregabalin [Lyrica] 75 mg Capsule 75 mg PO BID RF: 0 levofloxacin 750 mg tablet 750 mg PO Q24H Qty: 2 RF: 0 Referrals: [facility] VALENCIA [Other] - 2 Days Disposition Disposition: Home, Self Care Discharge Date/Time: 05/24/21 19:17
[2021-05-24 17:20] VITALS: BP 135/66; PULSE 74; RESP 14
[2021-05-24 17:29] LABS: Absolute Lymphocyte Count 1.84 X10^3/uL (0.83-4.51); Absolute Neutrophil Count 5.2 X10^3/uL (2.0-7.7); Basophil# 0.03 X10^3/uL; Basophil% 0.4 % (0-1); Eosinophil# 0.16 X10^3/uL; Eosinophils% 1.9 % (0-5); Hematocrit 32.4 % (40-54); Hemoglobin 10.1 g/dL (13.0-16.5); Lymphocyte # 1.84 X10^3/ul (0.83-4.51); Lymphocyte % 22.4 % (19-41); Mean Corp Hgb Conc 31.2 g/dL (32-36); Mean Corpuscular Hgb 29.3 pg (27.0-32.0); Mean Corpuscular Volume 93.9 fL (80-94); Mean Platelet Vol. 10.2 fl (6.2-12.0); Monocyte# 0.82 X10^3/uL; NRBC Flagged by Analyzer 0 % (0-5); Neutrophil # 5.22 X10^3/uL (2.7-7.7); Neutrophil % 63.5 % (47-70); Platelet Count 235 K/mm3 (150-450); RBC Distribution Width CV 13.2 % (11.6-14.6); RBC Distribution Width SD 45.4 fl (35.1-43.9); Red Blood Count 3.45 M/mm3 (4.6-6.2); White Blood Count 8.2 K/mm3 (4.4-11.0)
[2021-05-24 17:43] LABS: BNP,B-Type NATRIURETIC PEPTIDE 149.2 pg/mL (0-100)
[2021-05-24 17:47] LABS: Anion Gap 5 (5-15); BUN 32 mg/dL (7-18); Calcium,Total 8.8 mg/dL (8.5-10.1); Chloride 108 mmol/L (98-107); EST Glomerular Filtration Rate 36 mL/min (>60); Est Glom Filt Rate - Afr Amer 44 mL/min (>60); Estimated Creatinine Clearance 39.54 ml/min; Glucose 143 mg/dL (74-106); Potassium 4.3 mmol/L (3.5-5.1); Sodium Level 142 mmol/L (136-145); Troponin-I HS 10.4 pg/mL (3.0-78.5)
[2021-05-24 19:12] VITALS: BP 176/88; PULSE 72; RESP 18
== END 2021-05-24 19:17 | disposition home or self-care (01) ==
PROVIDERS: Emergency Provider Emergency Medicine
DX: R60.0 Localized edema (principal); J98.11 Atelectasis; I44.0 Atrioventricular block, first degree; I10 Essential (primary) hypertension; I25.10 Atherosclerotic heart disease of native coronary artery without angina pectoris; K21.9 Gastro-esophageal reflux disease without esophagitis; I25.2 Old myocardial infarction; E11.51 Type 2 diabetes mellitus with diabetic peripheral angiopathy without gangrene; Z95.5 Presence of coronary angioplasty implant and graft; Z86.19 Personal history of other infectious and parasitic diseases; Z87.01 Personal history of pneumonia (recurrent); Z87.442 Personal history of urinary calculi; Z79.4 Long term (current) use of insulin; Z79.02 Long term (current) use of antithrombotics/antiplatelets; Z79.899 Other long term (current) drug therapy; R06.02 Shortness of breath
CPT/HCPCS: 71045; 80048; 83880; 84484; 85025; 93005; 99284; A4216

== ENCOUNTER 2021-05-29 15:06 | Emergency (ER) | payer MEDICARE, MEDICAID, SELFPAY ==
[2021-05-29 15:06] VITALS: BP 162/81; PULSE 81; RESP 14; TEMP 36.6; O2SAT 96; BMI 37.9
[2021-05-29 15:20] LABS: Bedside Glucose 227 mg/dL (70-110)
--- NOTE | 2021-05-29 15:46 | EX.ED.DYSGE1 ---
HPI History of Present Illness Chief Complaint: Hyperglycemia Informant: patient Onset/Context/Timing Onset: Today Context: Gradual Onset Timing: Continuous Quality: Hyperglycemia Location: Generalized Worsened by: Nothing Relieved by: Nothing Narrative Narrative: Patient presents with hyperglycemia that was noticed today. Patient states his sugar at home was over 440. Patient states he feels fine. Patient denies any urinary frequency or polydipsia. Patient states he is hungry. Patient denies any chest pain. Patient denies any nausea or vomiting. Patient rechecked his blood sugar here and it was 254. Patient states he just wants to make sure his meter is correct. [facility] Medical History Amputation of one or more toes CAD (coronary artery disease) Chest pain Diabetes GERD (gastroesophageal reflux disease) Hypertension Kidney stones Kidney stones Myocardial infarct PAD (peripheral artery disease) Pulmonary nodule, left Home Medications acetaminophen 1,000 mg PO BID PRN PRN 02/11/21 [History Last Taken 02/10/21] alprazolam 0.5 mg PO BID 02/11/21 [History Last Taken 02/13/21] atorvastatin 80 mg PO QHS 02/11/21 [History Last Taken 02/12/21] buspirone 7.5 mg PO TID 02/11/21 [History Last Taken 02/13/21] carvedilol 25 mg PO BID 02/11/21 [History Last Taken 02/13/21] clopidogrel 75 mg PO DAILY 02/11/21 [History Last Taken 02/13/21] exenatide microspheres 0.65 ml SQ SA 02/11/21 [History Last Taken 02/08/21] finasteride 5 mg PO DAILY 02/11/21 [History Last Taken 02/13/21] fluoxetine 20 mg PO DAILY 02/11/21 [History Last Taken 02/13/21] fluoxetine 40 mg PO DAILY 02/11/21 [History Last Taken 02/13/21] furosemide 40 mg PO DAILY 02/11/21 [History Last Taken 02/13/21] hydralazine 20 mg GT TID 02/11/21 [History Last Taken 02/13/21] insulin detemir U-100 24 unit SQ QHS 02/11/21 [History Last Taken 02/12/21] insulin lispro 8 unit SQ TIDCM 02/11/21 [History Last Taken 02/12/21] isosorbide mononitrate 30 mg PO DAILY 02/11/21 [History Last Taken 02/13/21] losartan 100 mg PO DAILY 02/11/21 [History Last Taken 02/13/21] nitroglycerin 0.4 mg SL Q5M PRN 02/11/21 [History Last Taken 02/08/21] pantoprazole 20 mg PO DAILY 02/11/21 [History Last Taken 02/13/21] spironolactone 50 mg PO DAILY 02/11/21 [History Last Taken 02/13/21] trazodone 100 mg PO QHS 02/11/21 [History Last Taken 02/13/21] pregabalin [Lyrica] 75 mg PO BID 05/13/21 [History Last Taken Unknown] levofloxacin 750 mg PO Q24H #2 tab 05/21/21 [Rx Last Taken Unknown] Allergy/AdvReac Type Severity Reaction Status Date / Time allopurinol AdvReac Vomiting Verified 05/29/21 15:09 Influenza Virus Vaccines AdvReac Vomiting Verified 05/29/21 15:09 pneumococcal vaccine AdvReac Vomiting Verified 05/29/21 15:09 Family History Other Diabetes Heart disease Surgical History History of coronary artery stent placement History of lobectomy of lung Stented coronary artery Social History Smoking Status: Never smoker ROS ROS ED Constitutional Constitutional ED: Denies chills or fever(s) Eyes Eyes: Denies blurry vision or change in vision ENT ENT ED: Denies rhinorrhea or sore throat Cardiovascular Cardiovascular: Denies chest pain or palpitations Respiratory/Chest Respiratory/Chest: Denies cough or dyspnea Gastrointestinal Gastrointestinal: Denies nausea or vomiting Genitourinary Genitourinary ED: Denies dysuria or hematuria Musculoskeletal Musculoskeletal: Denies back pain or neck pain Integumentary Denies abscess or rash Neurologic Neurologic: Denies headache(s) or weakness Allergic/Immunologic Allergic/Immunologic ED: Denies mouth swelling or urticaria EXAM Physical Exam Const Vital Signs: 05/29/21 15:06 Temperature 97.8 F Temperature Source Temporal Pulse Rate 81 Respiratory Rate 14 Blood Pressure 162/81 H Blood Pressure Mean 108 Pulse Ox 96 Oxygen Delivery Method Room Air Positive well nourished and well developed General Appearance ED: well developed HEENT Reports moist mucous membranes Neck supple and no JVD Resp normal respiratory effort and clear to auscultation bilaterally Cardio regular rate, regular rhythm and no murmurs GI normal to inspection, nondistended, normoactive bowel sounds and non-tender Palpation: soft Extremity normal to inspection General Extremety ED: Negative for edema or tenderness General Extremity: Negative for edema Neuro oriented x3, CN's II-XII intact bilaterally and no sensory deficits noted Sensorium / Orientation: alert Motor Exam: strength 5/5 throughout Psych mental status grossly normal Skin no rashes or lesions noted MDM MDM MDM Narrative Medical decision making narrative: Basic metabolic profile was obtained. Glucose was 164. Patient is feeling better on reevaluation. Patient was given a sandwich. Patient was instructed to follow-up with his primary care physician in 5 to 7 days. Patient understood and was agreeable with the plan. All questions were answered. Lab Data Attestation: I reviewed the patient's lab results. Labs: Laboratory Results - last 24 hr 05/29/21 05/29/21 15:14 16:10 Sodium 140 Potassium 4.2 Chloride 104 Carbon Dioxide 30.0 Anion Gap 6 BUN 41 H Creatinine 2.04 H Estim Creat Clear Calc 38.77 Est GFR (MDRD) Af Amer 43 L Est GFR (MDRD) Non-Af 35 L BUN/Creatinine Ratio 20.1 H Glucose 164 H Calcium 8.6 POC Glucose 227 H Discharge Plan Triage Chief Complaint: Hyperglycemia ED Provider: Rex Banks Dx/Rx/DC Orders Clinical Impression: Hyperglycemia Instructions: ED Diabetic Hyperglycemia Prescriptions: No Action fluoxetine 40 MG capsule 40 mg PO DAILY RF: 0 furosemide 40 MG tablet 40 mg PO DAILY RF: 0 Hold Instructions: Resume on 05/24/21. hydralazine 10 MG tablet 20 mg GT TID RF: 0 atorvastatin 80 MG tablet 80 mg PO QHS RF: 0 carvedilol 25 MG tablet 25 mg PO BID RF: 0 isosorbide mononitrate 30 MG tablet extended release 24 hr 30 mg PO DAILY RF: 0 clopidogrel 75 MG tablet 75 mg PO DAILY RF: 0 acetaminophen 500 MG tablet 1,000 mg PO BID PRN PRN (Reason: Pain 1-10 Or Fever) RF: 0 pantoprazole 20 MG tablet 20 mg PO DAILY RF: 0 alprazolam 0.5 MG tablet 0.5 mg PO BID RF: 0 trazodone 100 MG tablet 100 mg PO QHS RF: 0 nitroglycerin 0.4 MG tablet, sublingual 0.4 mg SL Q5M PRN (Reason: Chest Pain) RF: 0 buspirone 7.5 MG tablet 7.5 mg PO TID RF: 0 losartan 100 MG tablet 100 mg PO DAILY RF: 0 fluoxetine 20 MG capsule 20 mg PO DAILY RF: 0 finasteride 5 MG tablet 5 mg PO DAILY RF: 0 spironolactone 50 MG tablet 50 mg PO DAILY RF: 0 Hold Instructions: Resume on 05/24/21. insulin lispro 100 UNIT/ML insulin pen 8 unit SQ TIDCM RF: 0 insulin detemir U-100 100 UNIT/ML insulin pen 24 unit SQ QHS RF: 0 exenatide microspheres 2 MG/0.65 ML pen injector 0.65 ml SQ SA RF: 0 pregabalin [Lyrica] 75 mg Capsule 75 mg PO BID RF: 0 levofloxacin 750 mg tablet 750 mg PO Q24H Qty: 2 RF: 0 Referrals: SAM[facility] VALENCIA [Other] - 5-7 Days Disposition Disposition: Home, Self Care
[2021-05-29 16:34] LABS: Anion Gap 6 (5-15); BUN 41 mg/dL (7-18); BUN/Creat Ratio 20.1 RATIO (10-20); Calcium,Total 8.6 mg/dL (8.5-10.1); Chloride 104 mmol/L (98-107); Creatinine, Serum 2.04 mg/dL (0.70-1.30); EST Glomerular Filtration Rate 35 mL/min (>60); Est Glom Filt Rate - Afr Amer 43 mL/min (>60); Estimated Creatinine Clearance 38.77 ml/min; Glucose 164 mg/dL (74-106); Potassium 4.2 mmol/L (3.5-5.1); Sodium Level 140 mmol/L (136-145)
[2021-05-29 17:33] VITALS: BP 149/86; PULSE 68; RESP 16; O2SAT 96
== END 2021-05-29 17:38 | disposition home or self-care (01) ==
PROVIDERS: Emergency Provider Emergency Medicine
DX: E11.65 Type 2 diabetes mellitus with hyperglycemia (principal); I10 Essential (primary) hypertension; I25.10 Atherosclerotic heart disease of native coronary artery without angina pectoris; K21.9 Gastro-esophageal reflux disease without esophagitis; I25.2 Old myocardial infarction; E11.51 Type 2 diabetes mellitus with diabetic peripheral angiopathy without gangrene; Z87.442 Personal history of urinary calculi; Z79.4 Long term (current) use of insulin; Z79.899 Other long term (current) drug therapy
CPT/HCPCS: 80048; 82962; 99282

== ENCOUNTER 2021-06-07 14:47 | Emergency (ER) | payer MEDICARE, MEDICAID, SELFPAY ==
[2021-06-07 14:49] VITALS: BP 124/62; PULSE 70; RESP 16; TEMP 36.7; O2SAT 97; BMI 39.4
--- NOTE | 2021-06-07 15:00 | EX.ED.DYSGE1 ---
HPI History of Present Illness Chief Complaint: Hypotension Informant: patient and EMS Narrative Narrative: 61-year-old male states that this morning he was in his usual state of health. He was up moving around his house. He sat down on the floor to look at a book and was unable to get up. He states that this is happened to him before and it has to do with weakness in his right leg. Because he was unable to get up he called EMS to help him up. When they arrived they noted a blood pressure 76/44. His prehospital EKG demonstrated a sinus rhythm with first-degree AV block at a rate of 73. Patient states he did not experience any chest pain shortness of breath. He denies sweaty feeling. He states that at the current time he feels fine. He states he is very hungry as he is not had breakfast or lunch. Patient's notes that he spent a substantial amount of time urinating yesterday. He is on a couple diuretics. [facility] Medical History Amputation of one or more toes CAD (coronary artery disease) Chest pain Diabetes GERD (gastroesophageal reflux disease) Hypertension Kidney stones Kidney stones Myocardial infarct PAD (peripheral artery disease) Pulmonary nodule, left Home Medications acetaminophen 1,000 mg PO BID PRN PRN 02/11/21 [History Last Taken 02/10/21] alprazolam 0.5 mg PO BID 02/11/21 [History Last Taken 02/13/21] atorvastatin 80 mg PO QHS 02/11/21 [History Last Taken 02/12/21] buspirone 7.5 mg PO TID 02/11/21 [History Last Taken 02/13/21] carvedilol 25 mg PO BID 02/11/21 [History Last Taken 02/13/21] clopidogrel 75 mg PO DAILY 02/11/21 [History Last Taken 02/13/21] exenatide microspheres 0.65 ml SQ SA 02/11/21 [History Last Taken 02/08/21] finasteride 5 mg PO DAILY 02/11/21 [History Last Taken 02/13/21] fluoxetine 20 mg PO DAILY 02/11/21 [History Last Taken 02/13/21] fluoxetine 40 mg PO DAILY 02/11/21 [History Last Taken 02/13/21] furosemide 40 mg PO DAILY 02/11/21 [History Last Taken 02/13/21] hydralazine 20 mg GT TID 02/11/21 [History Last Taken 02/13/21] insulin detemir U-100 24 unit SQ QHS 02/11/21 [History Last Taken 02/12/21] insulin lispro 8 unit SQ TIDCM 02/11/21 [History Last Taken 02/12/21] isosorbide mononitrate 30 mg PO DAILY 02/11/21 [History Last Taken 02/13/21] losartan 100 mg PO DAILY 02/11/21 [History Last Taken 02/13/21] nitroglycerin 0.4 mg SL Q5M PRN 02/11/21 [History Last Taken 02/08/21] pantoprazole 20 mg PO DAILY 02/11/21 [History Last Taken 02/13/21] spironolactone 50 mg PO DAILY 02/11/21 [History Last Taken 02/13/21] trazodone 100 mg PO QHS 02/11/21 [History Last Taken 02/13/21] pregabalin [Lyrica] 75 mg PO BID 05/13/21 [History Last Taken Unknown] levofloxacin 750 mg PO Q24H #2 tab 05/21/21 [Rx Last Taken Unknown] Allergy/AdvReac Type Severity Reaction Status Date / Time allopurinol AdvReac Vomiting Verified 06/07/21 14:49 Influenza Virus Vaccines AdvReac Vomiting Verified 06/07/21 14:49 pneumococcal vaccine AdvReac Vomiting Verified 06/07/21 14:49 Family History Other Diabetes Heart disease Surgical History History of coronary artery stent placement History of lobectomy of lung Stented coronary artery Social History (Updated 06/07/21 @ 15:[address] Jason Bryan DO) Smoking Status: Never smoker substance use type: does not use ROS ROS ED Constitutional Constitutional ED: Denies chills or weight loss Eyes Eyes: Denies change in vision or diplopia ENT ENT ED: Denies ear pain, rhinorrhea or sore throat Cardiovascular Cardiovascular: Denies chest pain, orthopnea, palpitations or racing heartbeat Respiratory/Chest Respiratory/Chest: Denies cough, dyspnea or orthopnea Gastrointestinal Gastrointestinal: Denies abdominal pain, diarrhea, nausea or vomiting Genitourinary Genitourinary ED: Denies dysuria, hematuria or urinary frequency Musculoskeletal Musculoskeletal: Denies arthralgias or myalgias Integumentary Denies abscess or rash Neurologic Neurologic: Denies headache(s) or weakness Psychiatric Psychiatric: Denies anxiety, depression, suicidal ideation or suicidal thoughts Endocrine Endocrinology: Denies polydipsia, polyphagia or polyuria Allergic/Immunologic Allergic/Immunologic ED: Denies mouth swelling, tongue swelling or urticaria EXAM Physical Exam Const Vital Signs: 06/07/21 14:49 06/07/21 14:52 06/07/21 15:09 Temperature 98.1 F Temperature Source Temporal Pulse Rate 70 Pulse Rate [Lying] 69 Pulse Rate [Sitting] 70 Pulse Rate [Standing] 72 Respiratory Rate 16 Respiratory Effort Normal Respiratory Pattern Normal Blood Pressure 124/62 H Blood Pressure [Lying] 105/62 Blood Pressure [Sitting] 109/82 H Blood Pressure [Standing] 88/76 L Blood Pressure Mean 82 Blood Pressure Mean [Lying] 76 Blood Pressure Mean [Sitting] 91 Blood Pressure Mean [Standing] 80 Pulse Ox 97 Oxygen Delivery Method Room Air 06/07/21 16:59 06/07/21 18:23 06/07/21 19:27 Temperature Temperature Source Pulse Rate 71 74 80 Pulse Rate [Lying] 73 Pulse Rate [Sitting] 75 Pulse Rate [Standing] 75 Respiratory Rate 15 15 13 Respiratory Effort Respiratory Pattern Blood Pressure 116/70 89/56 L 110/73 Blood Pressure [Lying] 100/55 L Blood Pressure [Sitting] 102/81 H Blood Pressure [Standing] 97/59 L Blood Pressure Mean 85 67 85 Blood Pressure Mean [Lying] 70 Blood Pressure Mean [Sitting] 88 Blood Pressure Mean [Standing] 71 Pulse Ox 95 95 93 Oxygen Delivery Method Room Air Room Air Room Air Positive well nourished and well developed General Appearance ED: well developed HEENT Reports normocephalic, head/scalp atraumatic and moist mucous membranes Eyes PERRL and EOMs intact bilaterally Neck no lymphadenopathy, supple and no JVD Resp normal respiratory effort and clear to auscultation bilaterally Cardio regular rate, regular rhythm and no murmurs GI normal to inspection, nondistended, normoactive bowel sounds and non-tender Palpation: soft Back/Spine no CVA tenderness and normal ROM Extremity normal to inspection General Extremety ED: Negative for edema General Extremity: Negative for edema Neuro oriented x3 and CN's II-XII intact bilaterally Sensorium / Orientation: alert Motor Exam: strength 5/5 throughout Psych mental status grossly normal Mood & Affect: Negative for depressed or tearful Skin no rashes or lesions noted and no wounds MDM MDM MDM Narrative Medical decision making narrative: Orthostatics were checked and are positive. Patient received 1 L of IV fluids. Blood work was rather unremarkable. BUN of 39 creatinine 1.55. The patient was still orthostatic he received a second liter. Afterwards he feels much better. This point patient will be discharged home. Lab Data Attestation: I reviewed the patient's lab results. Labs: Laboratory Results - last 24 hr 06/07/21 06/07/21 06/07/21 15:20 15:28 15:28 WBC Cancelled Corrected WBC Cancelled RBC Cancelled Hgb Cancelled Hct Cancelled MCV Cancelled MCH Cancelled MCHC Cancelled RDW Std Deviation Cancelled RDW Coeff of James Cancelled Plt Count Cancelled MPV Cancelled Immature Gran % (Auto) Cancelled Neut % (Auto) Cancelled Lymph % (Auto) Cancelled Nicholas % (Auto) Cancelled Eos % (Auto) Cancelled Baso % (Auto) Cancelled Absolute Neuts (auto) Cancelled Absolute Lymphs (auto) Cancelled Total Counted Cancelled Neutrophils % (Manual) Cancelled Band Neutrophils % Cancelled Lymphocytes % (Manual) Cancelled Monocytes % (Manual) Cancelled Eosinophils % (Manual) Cancelled Basophils % (Manual) Cancelled Metamyelocytes % Cancelled Myelocytes % Cancelled Promyelocytes % Cancelled Blast Cells % Cancelled Plasma Cell % (Manual) Cancelled Other Cells % Cancelled Nucleated RBC % Cancelled Nucleated RBCs/100 WBC Cancelled Differential Comment Cancelled Diff Path Review Cancelled Hypersegmented Neuts Cancelled Atypical Lymphocytes Cancelled Reactive Lymphocytes Cancelled Smudge Cells Cancelled Toxic Granulation Cancelled Toxic Vacuolation Cancelled Dohle Bodies Cancelled Esther Rods Cancelled Platelet Estimate Cancelled Plt Morphology Comment Cancelled RBC Morphology Cancelled Polychromasia Cancelled Hypochromasia Cancelled Poikilocytosis Cancelled Basophilic Stippling Cancelled Anisocytosis Cancelled Microcytosis Cancelled Macrocytosis Cancelled Spherocytes Cancelled Sickle Cells Cancelled Target Cells Cancelled Tear Drop Cells Cancelled Ovalocytes Cancelled Stomatocytes Cancelled [place] Bodies Cancelled Orwell Cells Cancelled Bite Cells Cancelled Crenated Cell Cancelled Acanthocytes (Spur) Cancelled Rouleaux Cancelled Schistocytes Cancelled Sodium 142 Potassium 3.7 Chloride 115 H Carbon Dioxide 21.0 Anion Gap 6 BUN 39 H Creatinine 1.55 H Estim Creat Clear Calc 51.02 Est GFR (MDRD) Af Amer 59 L Est GFR (MDRD) Non-Af 49 L BUN/Creatinine Ratio 25.2 H Glucose 84 Lactic Acid Calcium 6.7 L Total Bilirubin 0.20 AST 21 ALT 17 Alkaline Phosphatase 94 Total Protein 5.3 L Albumin 2.3 L Globulin 3.0 Albumin/Globulin Ratio 0.8 L Urine Color Urine Clarity Urine pH Ur Specific [place] Urine Protein Urine Glucose (UA) Urine Ketones Urine Occult Blood Urine Nitrite Urine Bilirubin Urine Urobilinogen Ur Leukocyte Esterase Urine RBC Urine WBC Ur Squamous Epith Cells Urine Bacteria Urine Mucus POC Glucose 97 06/07/21 06/07/21 06/07/21 15:28 15:46 15:46 WBC 9.6 Corrected WBC RBC 3.45 L Hgb 10.1 L Hct 32.6 L MCV 94.5 H MCH 29.3 MCHC 31.0 L RDW Std Deviation 45.2 H RDW Coeff of James 13.1 Plt Count 225 MPV 10.9 Immature Gran % (Auto) 0.700 Neut % (Auto) 68.2 Lymph % (Auto) 18.9 L Nicholas % (Auto) 10.7 H Eos % (Auto) 1.1 Baso % (Auto) 0.4 Absolute Neuts (auto) 6.5 Absolute Lymphs (auto) 1.82 Total Counted Neutrophils % (Manual) Band Neutrophils % Lymphocytes % (Manual) Monocytes % (Manual) Eosinophils % (Manual) Basophils % (Manual) Metamyelocytes % Myelocytes % Promyelocytes % Blast Cells % Plasma Cell % (Manual) Other Cells % Nucleated RBC % 0 Nucleated RBCs/100 WBC Differential Comment Diff Path Review Hypersegmented Neuts Atypical Lymphocytes Reactive Lymphocytes Smudge Cells Toxic Granulation Toxic Vacuolation Dohle Bodies Esther Rods Platelet Estimate Plt Morphology Comment RBC Morphology Polychromasia Hypochromasia Poikilocytosis Basophilic Stippling Anisocytosis Microcytosis Macrocytosis Spherocytes Sickle Cells Target Cells Tear Drop Cells Ovalocytes Stomatocytes [place] Bodies Kim Cells Bite Cells Crenated Cell Acanthocytes (Spur) Rouleaux Schistocytes Sodium Potassium Chloride Carbon Dioxide Anion Gap BUN Creatinine Estim Creat Clear Calc Est GFR (MDRD) Af Amer Est GFR (MDRD) Non-Af BUN/Creatinine Ratio Glucose Lactic Acid Cancelled 1.8 Calcium Total Bilirubin AST ALT Alkaline Phosphatase Total Protein Albumin Globulin Albumin/Globulin Ratio Urine Color Urine Clarity Urine pH Ur Specific [place] Urine Protein Urine Glucose (UA) Urine Ketones Urine Occult Blood Urine Nitrite Urine Bilirubin Urine Urobilinogen Ur Leukocyte Esterase Urine RBC Urine WBC Ur Squamous Epith Cells Urine Bacteria Urine Mucus POC Glucose 06/07/21 16:17 WBC Corrected WBC RBC Hgb Hct MCV MCH MCHC RDW Std Deviation RDW Coeff of James Plt Count MPV Immature Gran % (Auto) Neut % (Auto) Lymph % (Auto) Nicholas % (Auto) Eos % (Auto) Baso % (Auto) Absolute Neuts (auto) Absolute Lymphs (auto) Total Counted Neutrophils % (Manual) Band Neutrophils % Lymphocytes % (Manual) Monocytes % (Manual) Eosinophils % (Manual) Basophils % (Manual) Metamyelocytes % Myelocytes % Promyelocytes % Blast Cells % Plasma Cell % (Manual) Other Cells % Nucleated RBC % Nucleated RBCs/100 WBC Differential Comment Diff Path Review Hypersegmented Neuts Atypical Lymphocytes Reactive Lymphocytes Smudge Cells Toxic Granulation Toxic Vacuolation Dohle Bodies Esther Rods Platelet Estimate Plt Morphology Comment RBC Morphology Polychromasia Hypochromasia Poikilocytosis Basophilic Stippling Anisocytosis Microcytosis Macrocytosis Spherocytes Sickle Cells Target Cells Tear Drop Cells Ovalocytes Stomatocytes [place] Bodies [place] Cells Bite Cells Crenated Cell Acanthocytes (Spur) Rouleaux Schistocytes Sodium Potassium Chloride Carbon Dioxide Anion Gap BUN Creatinine Estim Creat Clear Calc Est GFR (MDRD) Af Amer Est GFR (MDRD) Non-Af BUN/Creatinine Ratio Glucose Lactic Acid Calcium Total Bilirubin AST ALT Alkaline Phosphatase Total Protein Albumin Globulin Albumin/Globulin Ratio Urine Color Yellow Urine Clarity Clear Urine pH 6.0 Ur Specific [place] 1.015 Urine Protein Negative Urine Glucose (UA) Normal Urine Ketones Negative Urine Occult Blood Negative Urine Nitrite Negative Urine Bilirubin Negative Urine Urobilinogen Normal Ur Leukocyte Esterase Negative Urine RBC 0 SEEN Urine WBC 0-5 SEEN Ur Squamous Epith Cells 0-5 SEEN Urine Bacteria RARE Urine Mucus 0 SEEN POC Glucose Radiography Diagnostic Testing: Radiology Impression Chest X-Ray 06/07/21 15:41 IMPRESSION: Persistent right basilar airspace disease which may represent atelectasis or pneumonia. at 1632 Reported and signed by: Demetrius Talbert MD Electronically Signed: Demetrius Talbert MD at 16:31 EDT Tel , Service support , EKG Initial EKG: Attestation: I personally reviewed and interpreted this EKG as follows: Comments: EKG demonstrates a sinus rhythm with first-degree AV block with ventricular rate at 70 bpm. Prior: Unchanged Discharge Plan Triage Chief Complaint: Hypotension ED Provider: Jason Bryan Dx/Rx/DC Orders Clinical Impression: Weakness, Diabetes mellitus, Orthostatic hypotension Instructions: ED Weakness (Uncertain Cause) Prescriptions: No Action fluoxetine 40 MG capsule 40 mg PO DAILY RF: 0 furosemide 40 MG tablet 40 mg PO DAILY RF: 0 Hold Instructions: Resume on 05/24/21. hydralazine 10 MG tablet 20 mg GT TID RF: 0 atorvastatin 80 MG tablet 80 mg PO QHS RF: 0 carvedilol 25 MG tablet 25 mg PO BID RF: 0 isosorbide mononitrate 30 MG tablet extended release 24 hr 30 mg PO DAILY RF: 0 clopidogrel 75 MG tablet 75 mg PO DAILY RF: 0 acetaminophen 500 MG tablet 1,000 mg PO BID PRN PRN (Reason: Pain 1-10 Or Fever) RF: 0 pantoprazole 20 MG tablet 20 mg PO DAILY RF: 0 alprazolam 0.5 MG tablet 0.5 mg PO BID RF: 0 trazodone 100 MG tablet 100 mg PO QHS RF: 0 nitroglycerin 0.4 MG tablet, sublingual 0.4 mg SL Q5M PRN (Reason: Chest Pain) RF: 0 buspirone 7.5 MG tablet 7.5 mg PO TID RF: 0 losartan 100 MG tablet 100 mg PO DAILY RF: 0 fluoxetine 20 MG capsule 20 mg PO DAILY RF: 0 finasteride 5 MG tablet 5 mg PO DAILY RF: 0 spironolactone 50 MG tablet 50 mg PO DAILY RF: 0 Hold Instructions: Resume on 05/24/21. insulin lispro 100 UNIT/ML insulin pen 8 unit SQ TIDCM RF: 0 insulin detemir U-100 100 UNIT/ML insulin pen 24 unit SQ QHS RF: 0 exenatide microspheres 2 MG/0.65 ML pen injector 0.65 ml SQ SA RF: 0 pregabalin [Lyrica] 75 mg Capsule 75 mg PO BID RF: 0 levofloxacin 750 mg tablet 750 mg PO Q24H Qty: 2 RF: 0 Referrals: [facility],Out of [NON-STAFF] - Activity Restrictions/Additional Instructions: If any new symptoms develop today refer to return to the emergency department for further evaluation. Follow-up with your doctor as needed. Disposition Disposition: Home, Self Care
[2021-06-07 15:09] VITALS: BP 105/62; BP 109/82; BP 88/76; PULSE 69; PULSE 70; PULSE 72
[2021-06-07] MEDS: 0.9% Normal Saline 1,000 ML 1000 ML IV (15:15)
--- NOTE | 2021-06-07 15:15 | EKG12_ITS ---
Test Reason : WEAKNESS Blood Pressure : / mmHG Vent. Rate : 070 BPM Atrial Rate : 070 BPM P-R Int : 232 ms QRS Dur : 092 ms QT Int : 420 ms P-R-T Axes : 047 009 045 degrees QTc Int : 453 ms Sinus rhythm with 1st degree A-V block Otherwise normal ECG Confirmed by ROLAND JOHNS, FAUSTINA ([id number]), manuscript editor SHARAN DOE ([id number]) on 06/11/2021 9:11:52 AM Referred By: AL Confirmed By:FAUSTINA WATKINS MD
[2021-06-07 15:36] LABS: Bedside Glucose 97 mg/dL (70-110)
--- NOTE | 2021-06-07 15:41 | RAD_ITS ---
EXAM: XR CHEST, 1 VIEW : 1960 CLINICAL INDICATION: hypotension TECHNIQUE: Frontal view of the chest. This report was created using [employer] report generation technology. COMPARISON: 05/24/2021 FINDINGS: LUNGS AND PLEURAL SPACES: There is right basilar atelectasis or pneumonia. There is elevation of the right hemidiaphragm. No pneumothorax. No effusion. HEART: Unremarkable. Cardiac silhouette not enlarged. MEDIASTINUM: Central airways and mediastinal contour are unremarkable. BONES/JOINTS: Unremarkable. SOFT TISSUES: Unremarkable. RAD/Chest 1 View (Portable) IMPRESSION: Persistent right basilar airspace disease which may represent atelectasis or pneumonia. at 1632 Reported and signed by: Demetrius Talbert MD Electronically Signed: Demetrius Talbert MD at 16:31 EDT Tel , Service support ,
[2021-06-07 15:53] LABS: Absolute Lymphocyte Count 1.82 X10^3/uL (0.83-4.51); Absolute Neutrophil Count 6.5 X10^3/uL (2.0-7.7); Basophil# 0.04 X10^3/uL; Basophil% 0.4 % (0-1); Eosinophil# 0.11 X10^3/uL; Eosinophils% 1.1 % (0-5); Hematocrit 32.6 % (40-54); Hemoglobin 10.1 g/dL (13.0-16.5); Lymphocyte # 1.82 X10^3/ul (0.83-4.51); Lymphocyte % 18.9 % (19-41); Mean Corpuscular Hgb 29.3 pg (27.0-32.0); Mean Corpuscular Volume 94.5 fL (80-94); Mean Platelet Vol. 10.9 fl (6.2-12.0); Monocyte# 1.03 X10^3/uL; Monocyte% 10.7 % (0-10); NRBC Flagged by Analyzer 0 % (0-5); Neutrophil # 6.54 X10^3/uL (2.7-7.7); Neutrophil % 68.2 % (47-70); Platelet Count 225 K/mm3 (150-450); RBC Distribution Width CV 13.1 % (11.6-14.6); RBC Distribution Width SD 45.2 fl (35.1-43.9); Red Blood Count 3.45 M/mm3 (4.6-6.2); White Blood Count 9.6 K/mm3 (4.4-11.0)
[2021-06-07 15:56] LABS: ALB/GLOB Ratio 0.8 RATIO (0.9-2.4); AST(SGOT) 21 U/L (15-37); Alanine Aminotransfer ALT/SGPT 17 U/L (16-61); Albumin, Serum 2.3 g/dL (3.2-5.0); Alkaline Phosphatase 94 U/L (45-117); Anion Gap 6 (5-15); BUN 39 mg/dL (7-18); BUN/Creat Ratio 25.2 RATIO (10-20); Calcium,Total 6.7 mg/dL (8.5-10.1); Chloride 115 mmol/L (98-107); Creatinine, Serum 1.55 mg/dL (0.70-1.30); EST Glomerular Filtration Rate 49 mL/min (>60); Est Glom Filt Rate - Afr Amer 59 mL/min (>60); Estimated Creatinine Clearance 51.02 ml/min; Glucose 84 mg/dL (74-106); Potassium 3.7 mmol/L (3.5-5.1); Protein, Total 5.3 g/dL (6.4-8.2); Sodium Level 142 mmol/L (136-145)
[2021-06-07 16:16] LABS: Lactic Acid 1.8 mmol/L (0.4-1.9)
[2021-06-07 16:21] LABS: Mucous, Urine 0 SEEN /hpf (<or=2+); Red Blood Cells-Urine 0 SEEN /hpf (0-5)
[2021-06-07 16:24] LABS: Color, Urine Yellow (Yellow); Glucose, Dipstick Normal (Normal); Ketone-Dipstick Negative (Negative); Leukocyte Esterase-Dipstick Negative /ul (Negative); Nitrite-Dipstick Negative (Negative); Occult Blood-Urine Negative /ul (Negative); Protein-Dipstick Negative (Negative); Specific Gravity, Urine 1.015 (1.002-1.030); Urine Bilirubin Dipstick Negative (Negative); Urine Clarity Clear (Clear); Urine Urobilinogen Normal (Normal)
[2021-06-07 16:32] LABS: Bacteria RARE /hpf (None Seen); Squamous Epithelial Cells - UA 0-5 SEEN /hpf (0-5); White Blood Cells 0-5 SEEN /hpf (0-5)
[2021-06-07] MEDS: Acetaminophen 500 MG Tablet 1000 MG PO (16:58)
[2021-06-07 16:59] VITALS: BP 100/55; BP 102/81; BP 116/70; BP 97/59; PULSE 71; PULSE 73; PULSE 75; RESP 15; O2SAT 95
[2021-06-07] MEDS: 0.9% Normal Saline 1,000 ML 999 ML IV (17:47)
[2021-06-07 18:23] VITALS: BP 89/56; PULSE 74; RESP 15; O2SAT 95
[2021-06-07 19:27] VITALS: BP 110/73; PULSE 80; RESP 13; O2SAT 93
[2021-06-07 20:35] VITALS: BP 110/73; PULSE 80; RESP 13; O2SAT 93
== END 2021-06-07 20:36 | disposition home or self-care (01) ==
LOC: ED 15:07
PROVIDERS: Emergency Provider Emergency Medicine
DX: I95.1 Orthostatic hypotension (principal); R53.1 Weakness; E11.51 Type 2 diabetes mellitus with diabetic peripheral angiopathy without gangrene; I44.0 Atrioventricular block, first degree; I10 Essential (primary) hypertension; I25.2 Old myocardial infarction; K21.9 Gastro-esophageal reflux disease without esophagitis; Z87.442 Personal history of urinary calculi; Z95.5 Presence of coronary angioplasty implant and graft; Z79.4 Long term (current) use of insulin; Z79.02 Long term (current) use of antithrombotics/antiplatelets; Z79.899 Other long term (current) drug therapy
CPT/HCPCS: 71045; 80053; 81001; 82962; 83605; 85025; 93005; 96360; 96361; 99285; J7030

== ENCOUNTER 2021-06-18 12:31 | Inpatient (IN) | payer MEDICARE, MEDICAID, SELFPAY ==
[2021-06-10 07:53] VITALS: BMI 38.9
[2021-06-18] VITALS (21 sets, daily range): BP systolic 83–163; BP diastolic 44–118; PULSE 88–110; RESP 12–28; TEMP 36.6–38.9; O2SAT 91–100; BMI 39.1; BMI 38.1
--- NOTE | 2021-06-18 12:41 | RAD_ITS ---
STUDY: X-RAY CHEST REASON FOR EXAM: Male, 61 years old. Hypoxia TECHNIQUE: Single AP portable view of the chest. COMPARISON: Comparison is made with prior study dated 06/07/2021. FINDINGS: EKG electrodes are seen. Elevation of the right hemidiaphragm. Since prior study, there has been progressive infiltrates at the lung bases worse on the right side. Follow-up is recommended. There is no demonstrated pleural abnormality. Normal size heart. Normal mediastinum and pat. Normal visualized pulmonary arteries. Normal visualized aortic arch and descending thoracic aorta. There are diffuse degenerative changes of the visualized thoracic spine. Normal visualized ribs, clavicles, and shoulders. There is no demonstrated abnormality of the visualized soft tissue structures of the upper abdomen. RAD/Chest 1 View (Portable) IMPRESSION: Progressive bibasilar infiltrates worse in the right hemithorax. Electronically Signed: Den Carver MD at 13:54 EDT , Service support ,
--- NOTE | 2021-06-18 12:41 | EKG12_ITS ---
Test Reason : Blood Pressure : / mmHG Vent. Rate : 112 BPM Atrial Rate : 112 BPM P-R Int : 202 ms QRS Dur : 098 ms QT Int : 300 ms P-R-T Axes : 109 031 066 degrees QTc Int : 409 ms Sinus tachycardia Otherwise normal ECG Confirmed by ROLAND JOHNS, FAUSTINA ([id number]), food editor SHARAN DOE ([id number]) on 06/20/2021 10:08:51 AM Referred By: Confirmed By:FAUSTINA WATKINS MD
--- NOTE | 2021-06-18 12:49 | EDS_ITS ---
HPI History of Present Illness Chief Complaint: Shortness of Breath Narrative Narrative: 61-year-old male presenting in respiratory distress. He states that he wears 2 L of oxygen at night/as needed. He has a home CPAP but he does not know how to use it he states. His states that he use it this morning. He appears to be talking in short sentences. He is not complaining of any chest pain. He states that he does not use breathing treatments at home. He had a recent pulmonology visit that it was determined he did not need these but needed to be on oxygen and be compliant. Patient has history of diabetes, hypertension, CAD, PAD, pulmonary edema, acute respiratory failure with hypoxia. Patient denies having a fever at this time. [facility] Medical History Amputation of one or more toes CAD (coronary artery disease) Chest pain Diabetes GERD (gastroesophageal reflux disease) Hypertension Kidney stones Kidney stones Myocardial infarct PAD (peripheral artery disease) Pulmonary nodule, left Home Medications acetaminophen 1,000 mg PO BID PRN PRN 02/11/21 [History Last Taken 02/10/21] alprazolam 0.5 mg PO BID 02/11/21 [History Last Taken 02/13/21] atorvastatin 80 mg PO QHS 02/11/21 [History Last Taken 02/12/21] buspirone 7.5 mg PO TID 02/11/21 [History Last Taken 02/13/21] carvedilol 25 mg PO BID 02/11/21 [History Last Taken 02/13/21] clopidogrel 75 mg PO DAILY 02/11/21 [History Last Taken 02/13/21] exenatide microspheres 0.65 ml SQ SA 02/11/21 [History Last Taken 02/08/21] finasteride 5 mg PO DAILY 02/11/21 [History Last Taken 02/13/21] fluoxetine 20 mg PO DAILY 02/11/21 [History Last Taken 02/13/21] fluoxetine 40 mg PO DAILY 02/11/21 [History Last Taken 02/13/21] furosemide 40 mg PO DAILY 02/11/21 [History Last Taken 02/13/21] hydralazine 20 mg GT TID 02/11/21 [History Last Taken 02/13/21] insulin detemir U-100 24 unit SQ QHS 02/11/21 [History Last Taken 02/12/21] insulin lispro 8 unit SQ TIDCM 02/11/21 [History Last Taken 02/12/21] isosorbide mononitrate 30 mg PO DAILY 02/11/21 [History Last Taken 02/13/21] losartan 100 mg PO DAILY 02/11/21 [History Last Taken 02/13/21] nitroglycerin 0.4 mg SL Q5M PRN 02/11/21 [History Last Taken 02/08/21] pantoprazole 20 mg PO DAILY 02/11/21 [History Last Taken 02/13/21] spironolactone 50 mg PO DAILY 02/11/21 [History Last Taken 02/13/21] trazodone 100 mg PO QHS 02/11/21 [History Last Taken 02/13/21] pregabalin [Lyrica] 75 mg PO BID 05/13/21 [History Last Taken Unknown] levofloxacin 750 mg PO Q24H #2 tab 05/21/21 [Rx Last Taken Unknown] Allergy/AdvReac Type Severity Reaction Status Date / Time allopurinol AdvReac Vomiting Verified 06/18/21 12:38 Influenza Virus Vaccines AdvReac Vomiting Verified 06/18/21 12:38 pneumococcal vaccine AdvReac Vomiting Verified 06/18/21 12:38 Family History Other Diabetes Heart disease Surgical History History of coronary artery stent placement History of lobectomy of lung Stented coronary artery Social History Smoking Status: Never smoker substance use type: does not use ROS ROS ED Constitutional Constitutional ED: Denies chills or fever(s) Eyes Eyes: Denies blurry vision or diplopia ENT ENT ED: Denies rhinorrhea or sore throat Cardiovascular Cardiovascular: Reports racing heartbeat; Denies chest pain Respiratory/Chest Respiratory/Chest: Reports cough, dyspnea and dyspnea on exertion Gastrointestinal Gastrointestinal: Reports diarrhea, nausea and vomiting; Denies abdominal pain Genitourinary Genitourinary ED: Denies dysuria or hematuria Integumentary Denies abscess or rash Neurologic Neurologic: Denies headache(s) or paresthesias Psychiatric Psychiatric: Reports anxiety; Denies depression EXAM Physical Exam Const Vital Signs: 06/18/21 12:32 06/18/21 12:54 06/18/21 13:10 Temperature 98.3 F 98.3 F Temperature Source Temporal Oral Pulse Rate 110 H 110 H 109 H Respiratory Rate 24 H 24 H 26 H Respiratory Effort Short of Breath Labored Accessory Muscle Use Blood Pressure 145/118 H 145/118 H Blood Pressure Mean 127 127 Pulse Ox 96 96 96 Oxygen Delivery Method Non-Rebreather Non-Rebreather Nasal Cannula Oxygen Flow Rate (L/min) 15 15 15 Fraction of Inspired Oxygen (FIO2) 06/18/21 13:38 Temperature Temperature Source Pulse Rate 109 H Respiratory Rate 28 H Respiratory Effort Blood Pressure Blood Pressure Mean Pulse Ox 98 Oxygen Delivery Method Oxygen Flow Rate (L/min) Fraction of Inspired Oxygen (FIO2) 60 Positive obese General Appearance ED: other Appears to be in respiratory distress. Nutritional Appearance: obese HEENT Reports dry mucous membranes atraumatic Mouth ED: Yes dry mucous membranes Mouth: dry mucous membranes Eyes PERRL and EOMs intact bilaterally Resp Auscultation: diminished lung sounds bilateral Cardio regular rhythm Rate: tachycardic GI non-tender and non-distended Palpation: soft Neuro oriented x3 and CN's II-XII intact bilaterally Sensorium / Orientation: alert Psych Attitude: agitated Mood & Affect: anxious Skin Lesions: no lesions Rashes: no rashes MDM MDM MDM Narrative Medical decision making narrative: Patient presenting with shortness of breath. It was reported that he was 73% on his home O2. He describes difficulty with his CPAP machine. He had an EKG performed on arrival which is sinus tachycardia at 112 bpm without signs of ST elevation, depression, dysrhythmia. Patient is currently on 15 L O2 via nasal cannula. He appears very dyspneic and anxious. Nursing staff states he was audibly wheezing on arrival however his breath sounds sound diminished to me. We will give him breathing treatments and Solu- Medrol at this time. After patient is treated I did review the medical record and he does not have any need for steroids or albuterol at home per pulmonology. We will trial the patient on CPAP. Sepsis lab work is obtained. While examining him patient became very anxious and defecated on himself. He is not complaining of any abdominal pain. He does state I am going to young. He does appear very anxious. Chest x-ray on my interpretation shows worsening pneumonia bilaterally and worse on the right. Radiologist does agree. Patient given vancomycin and Zosyn due to recent hospitalization. VBG shows patient slightly acidotic and hypercapnic. Patient placed on BiPAP. Lab work shows leukocytosis of 19.6, hemoglobin hematocrit are stable. Platelets 212. Creatinine is slightly elevated at 1.97 previously 1.55. Lactic acid is normal at 1.5. LFTs unremarkable. PT/INR normal. BNP is 64. Troponin 11.1. Patient seems to be doing much better on reevaluation. The BiPAP appears to have been helping him. Patient and family counseled on findings and patient will be admitted to the hospital. Discussed with Dr. Larkin who requested patient be placed in ICU. Cultures are pending. Impression: 1. Hospital-acquired pneumonia 2. Severe sepsis 3. Hypoxic hypercapnic respiratory failure Lab Data Attestation: I reviewed the patient's lab results. Labs: Laboratory Results - last 24 hr 06/18/21 06/18/21 06/18/21 12:45 12:45 12:45 WBC 19.6 H RBC 4.11 L Hgb 12.0 L Hct 38.8 L MCV 94.4 H MCH 29.2 MCHC 30.9 L RDW Std Deviation 44.4 H RDW Coeff of James 13.0 Plt Count 212 MPV 10.6 Immature Gran % (Auto) 0.600 Neut % (Auto) 84.6 H Lymph % (Auto) 9.6 L [place] % (Auto) 3.8 Eos % (Auto) 1.1 Baso % (Auto) 0.3 Absolute Neuts (auto) 16.6 H Absolute Lymphs (auto) 1.87 Nucleated RBC % 0 PT INR APTT Sodium 137 Potassium 5.1 Chloride 103 Carbon Dioxide 32.0 Anion Gap 2 L BUN 41 H Creatinine 1.97 H Estim Creat Clear Calc 40.14 Est GFR (MDRD) Af Amer 45 L Est GFR (MDRD) Non-Af 37 L BUN/Creatinine Ratio 20.8 H Glucose 168 H Lactic Acid 1.5 Calcium 9.1 Total Bilirubin 0.40 AST 19 ALT 21 Alkaline Phosphatase 126 H Troponin I High Sens 11.1 B-Natriuretic Peptide Total Protein 8.3 H Albumin 3.7 Globulin 4.6 H Albumin/Globulin Ratio 0.8 L Urine Color Urine Clarity Urine pH Ur Specific [place] Urine Protein Urine Glucose (UA) Urine Ketones Urine Occult Blood Urine Nitrite Urine Bilirubin Urine Urobilinogen Ur Leukocyte Esterase Urine RBC Urine WBC Ur Squamous Epith Cells Urine Bacteria Urine Mucus 06/18/21 06/18/21 06/18/21 12:45 12:50 13:25 WBC RBC Hgb Hct MCV MCH MCHC RDW Std Deviation RDW Coeff of James Plt Count MPV Immature Gran % (Auto) Neut % (Auto) Lymph % (Auto) [place] % (Auto) Eos % (Auto) Baso % (Auto) Absolute Neuts (auto) Absolute Lymphs (auto) Nucleated RBC % PT 14.1 INR 1.2 APTT 25.4 Sodium Potassium Chloride Carbon Dioxide Anion Gap BUN Creatinine Estim Creat Clear Calc Est GFR (MDRD) Af Amer Est GFR (MDRD) Non-Af BUN/Creatinine Ratio Glucose Lactic Acid Calcium Total Bilirubin AST ALT Alkaline Phosphatase Troponin I High Sens B-Natriuretic Peptide 64.0 Total Protein Albumin Globulin Albumin/Globulin Ratio Urine Color Yellow Urine Clarity Clear Urine pH 5.0 Ur Specific [place] 1.015 Urine Protein 15 H Urine Glucose (UA) Normal Urine Ketones Negative Urine Occult Blood Negative Urine Nitrite Negative Urine Bilirubin Negative Urine Urobilinogen Normal Ur Leukocyte Esterase Negative Urine RBC 0 SEEN Urine WBC 0 SEEN Ur Squamous Epith Cells 0 SEEN Urine Bacteria 0 SEEN Urine Mucus 0 SEEN ABG Data ABG results: ABG 06/18/21 13:01 Specimen Type YA Sample Site R Radial pH 7.26 L Bicarbonate Actual 28.3 H Total CO2 30 Base Excess 1 O2 Saturation 76 L ABG pCO2 63.5 H ABG pO2 48 L Gabe Test Positive O2 Delivery Device HFNC Liter Flow 15.0 Radiography Diagnostic Testing: Radiology Impression Chest X-Ray 06/18/21 12:41 IMPRESSION: Progressive bibasilar infiltrates worse in the right hemithorax. Electronically Signed: Den Carver MD at 13:54 EDT , Service support , Discharge Plan Triage Chief Complaint: Shortness of Breath ED Provider: Ck Villar Dx/Rx/DC Orders Prescriptions: No Action fluoxetine 40 MG capsule 40 mg PO DAILY RF: 0 furosemide 40 MG tablet 40 mg PO DAILY RF: 0 Hold Instructions: Resume on 05/24/21. hydralazine 10 MG tablet 20 mg GT TID RF: 0 atorvastatin 80 MG tablet 80 mg PO QHS RF: 0 carvedilol 25 MG tablet 25 mg PO BID RF: 0 isosorbide mononitrate 30 MG tablet extended release 24 hr 30 mg PO DAILY RF: 0 clopidogrel 75 MG tablet 75 mg PO DAILY RF: 0 acetaminophen 500 MG tablet 1,000 mg PO BID PRN PRN (Reason: Pain 1-10 Or Fever) RF: 0 pantoprazole 20 MG tablet 20 mg PO DAILY RF: 0 alprazolam 0.5 MG tablet 0.5 mg PO BID RF: 0 trazodone 100 MG tablet 100 mg PO QHS RF: 0 nitroglycerin 0.4 MG tablet, sublingual 0.4 mg SL Q5M PRN (Reason: Chest Pain) RF: 0 buspirone 7.5 MG tablet 7.5 mg PO TID RF: 0 losartan 100 MG tablet 100 mg PO DAILY RF: 0 fluoxetine 20 MG capsule 20 mg PO DAILY RF: 0 finasteride 5 MG tablet 5 mg PO DAILY RF: 0 spironolactone 50 MG tablet 50 mg PO DAILY RF: 0 Hold Instructions: Resume on 05/24/21. insulin lispro 100 UNIT/ML insulin pen 8 unit SQ TIDCM RF: 0 insulin detemir U-100 100 UNIT/ML insulin pen 24 unit SQ QHS RF: 0 exenatide microspheres 2 MG/0.65 ML pen injector 0.65 ml SQ SA RF: 0 pregabalin [Lyrica] 75 mg Capsule 75 mg PO BID RF: 0 levofloxacin 750 mg tablet 750 mg PO Q24H Qty: 2 RF: 0 Referrals: Charles Rizo [Other]
[2021-06-18] MEDS: MethylPREDNISolone 125 MG/2 ML Vial IV (12:58)
[2021-06-18] MEDS: Ondansetron 4 MG/2 ML Vial IV (12:58)
[2021-06-18 13:06] LABS: International Normalized Ratio 1.2; Prothrombin Time (Protime)PT. 14.1 SECONDS (11.7-14.9)
[2021-06-18 13:06] LABS: Allen Test Positive; Base Excess 1 mmol/L (-2 to +2); Bicarbonate 28.3 mmol/L (22-26); O2 Delivery Device HFNC; PO2 48 mmHG (75-100); SITE R Radial; SO2 76 % (95-99); Total Carbon Dioxide 30 mmol/L; pCO2 63.5 mmHg (35-45); pH 7.26 (7.35-7.45)
[2021-06-18 13:07] LABS: Partial Thromboplast Time 25.4 Seconds (24.1-36.2)
[2021-06-18 13:09] LABS: Absolute Lymphocyte Count 1.87 X10^3/uL (0.83-4.51); Absolute Neutrophil Count 16.6 X10^3/uL (2.0-7.7); Basophil# 0.05 X10^3/uL; Basophil% 0.3 % (0-1); Eosinophil# 0.22 X10^3/uL; Eosinophils% 1.1 % (0-5); Hematocrit 38.8 % (40-54); Lymphocyte # 1.87 X10^3/ul (0.83-4.51); Lymphocyte % 9.6 % (19-41); Mean Corp Hgb Conc 30.9 g/dL (32-36); Mean Corpuscular Hgb 29.2 pg (27.0-32.0); Mean Corpuscular Volume 94.4 fL (80-94); Mean Platelet Vol. 10.6 fl (6.2-12.0); Monocyte# 0.75 X10^3/uL; Monocyte% 3.8 % (0-10); NRBC Flagged by Analyzer 0 % (0-5); Neutrophil # 16.57 X10^3/uL (2.7-7.7); Neutrophil % 84.6 % (47-70); Platelet Count 212 K/mm3 (150-450); RBC Distribution Width SD 44.4 fl (35.1-43.9); Red Blood Count 4.11 M/mm3 (4.6-6.2); White Blood Count 19.6 K/mm3 (4.4-11.0)
[2021-06-18] MEDS: Albuterol 2.5 MG/3 ML VIAL.NEB. INHALATION (13:16)
[2021-06-18] MEDS: Ipratropium/Albuterol Sulfate 3 ML AMPUL.NEB INHALATION ×2 (13:16→18:51)
[2021-06-18 13:26] LABS: ALB/GLOB Ratio 0.8 RATIO (0.9-2.4); AST(SGOT) 19 U/L (15-37); Alanine Aminotransfer ALT/SGPT 21 U/L (16-61); Albumin, Serum 3.7 g/dL (3.2-5.0); Alkaline Phosphatase 126 U/L (45-117); Anion Gap 2 (5-15); BUN 41 mg/dL (7-18); BUN/Creat Ratio 20.8 RATIO (10-20); Calcium,Total 9.1 mg/dL (8.5-10.1); Chloride 103 mmol/L (98-107); Creatinine, Serum 1.97 mg/dL (0.70-1.30); EST Glomerular Filtration Rate 37 mL/min (>60); Est Glom Filt Rate - Afr Amer 45 mL/min (>60); Estimated Creatinine Clearance 40.14 ml/min; Globulin 4.6 g/dL (2.2-4.2); Glucose 168 mg/dL (74-106); Potassium 5.1 mmol/L (3.5-5.1); Protein, Total 8.3 g/dL (6.4-8.2); Sodium Level 137 mmol/L (136-145); Troponin-I HS 11.1 pg/mL (3.0-78.5)
[2021-06-18 13:32] LABS: Bacteria 0 SEEN /hpf (None Seen); Mucous, Urine 0 SEEN /hpf (<or=2+); Red Blood Cells-Urine 0 SEEN /hpf (0-5); Squamous Epithelial Cells - UA 0 SEEN /hpf (0-5); White Blood Cells 0 SEEN /hpf (0-5)
[2021-06-18 13:33] LABS: Lactic Acid 1.5 mmol/L (0.4-1.9)
[2021-06-18 13:44] LABS: Color, Urine Yellow (Yellow); Glucose, Dipstick Normal (Normal); Ketone-Dipstick Negative (Negative); Leukocyte Esterase-Dipstick Negative /ul (Negative); Nitrite-Dipstick Negative (Negative); Occult Blood-Urine Negative /ul (Negative); Protein-Dipstick 15 mg/dl (Negative); Specific Gravity, Urine 1.015 (1.002-1.030); Urine Bilirubin Dipstick Negative (Negative); Urine Clarity Clear (Clear); Urine Urobilinogen Normal (Normal)
[2021-06-18 13:53] LABS: Blood Gas Specimen Type VEN
--- NOTE | 2021-06-18 14:20 | CPS ---
Pressures decreased to 10/5 per patient request.
--- NOTE | 2021-06-18 14:25 | NURSING ---
ICU BEATRICE SEVERE SEPSIS, PNA, CELESTE, HYPOXIA, HYPERCAPNIC RESP FAILURE
[2021-06-18] MEDS: LORazepam 2 MG/ML Syringe 0.5 MG IV (14:35)
--- NOTE | 2021-06-18 14:41 | NURSING ---
ICU 1
[2021-06-18 15:11] LABS: Blood Gas Specimen Type VEN; Comment bipap 10/5; O2 Delivery Device BiPAP; VBG BASE EXCESS 4 mmol/L (-1.0-3.5); VBG Bicarbonate 30 mmol/L (22-26); VBG PO2 33 mmHg (25-40); VBG SO2 61 % (50-70); VBG TCO2 31 mmol/L (23-33); VBG pCO2 51.4 mmHg (41-51); VBG pH 7.37 (7.32-7.42)
[2021-06-18] MEDS: 0.9% Normal Saline 1,000 ML 999 ML IV ×4 (15:19→21:28)
--- NOTE | 2021-06-18 16:13 | HP.PCM.HOS_ITS ---
HPI - General General Date of Admission: 06/18/21 Date of Service: 06/18/21 Chief Complaint: Shortness of breath HPI Narrative REA HANNA, is a 61 M who presented to the emergency department [facility] on 06/18/2021 complaining of worsening shortness of breath. His fianc?e is at the bedside and she gives his history because he is currently on noninvasive ventilation. He had a recent admission here from 05/16/2021 to 05/21/2021 for acute respiratory failure. His presentation was similar to this presentation. His fianc?e states he was using oxygen 2 L at night as needed and his home CPAP but currently there is not a 2 L bleed into his CPAP machine so they have been struggling getting that addressed. She reports that he started having increased shortness of breath this morning, no documented fevers, no chills, no increasing cough, no nausea or vomiting prior to presentation but he did have a large emesis and a large bowel movement in the emergency department. At this time he shakes his head to deny any further nausea or sensation that he needs to defecate. On presentation he was found to have an oxygen saturation of 73% on home oxygen. He was placed on 15 L via nasal cannula and eventually on noninvasive ventilation. He was given breathing treatments and Solu-Medrol in the emergency department. Mr. Hanna has significant anxiety that further exacerbates his pulmonary status when he has respiratory distress. He was given Vanco and Zosyn and a sepsis work-up was initiated. He initially was afebrile but did spike a temp of 102.1 and remained tachycardic. His blood pressures were initially stable but then decompensated to pressure of 83/55 and fluid boluses were ordered. He was tachypneic with respiratory rates from 19-28 and was able to maintain oxygen saturation on 40% BiPAP with sats at 97 to 98%. His CBC shows a marked leukocytosis which was resolved with lab on 06/07/2021 where his white count was 9.6 and mild anemia that is chronic and stable. An ABG was unable to be obtained but a VBG shows a pH of 7.26 indicating hypercapnia on presentation. His BMP shows an elevated creatinine with a serum creatinine of 1.97. Baseline is 1.2-1.4. His bilirubin was within normal limits. Transaminases were within normal limits. His UA shows no signs of infection. EKG shows a sinus tachycardia without any signs of acute ischemia. His chest x- ray shows bibasilar infiltrates. He will be admitted to the ICU for continued care for his sepsis. [facility] Medical History (Updated 06/18/21 @ 14:46 by Michelle Means) Amputation of one or more toes Anxiety CAD (coronary artery disease) Chest pain Congestive heart failure (CHF) COPD (chronic obstructive pulmonary disease) CPAP (continuous positive airway pressure) dependence Depression Diabetes GERD (gastroesophageal reflux disease) Hypertension Kidney stones Kidney stones Myocardial infarct Non-smoker On home oxygen therapy PAD (peripheral artery disease) Pulmonary nodule, left Sleep apnea Home Medications acetaminophen 1,000 mg PO BID PRN PRN 02/11/21 [History Last Taken 06/16/21] alprazolam 0.5 mg PO BID 02/11/21 [History Last Taken 06/17/21] atorvastatin 80 mg PO QHS 02/11/21 [History Last Taken 06/17/21] buspirone 7.5 mg PO TID 02/11/21 [History Last Taken 06/17/21] carvedilol 25 mg PO BID 02/11/21 [History Last Taken 06/17/21] clopidogrel 75 mg PO DAILY 02/11/21 [History Last Taken 06/17/21] finasteride 5 mg PO DAILY 02/11/21 [History Last Taken 06/17/21] fluoxetine 20 mg PO DAILY 02/11/21 [History Last Taken 06/17/21] fluoxetine 40 mg PO DAILY 02/11/21 [History Last Taken 06/17/21] furosemide 40 mg PO LUNCH 02/11/21 [History Last Taken 06/17/21] hydralazine 20 mg PO TID 02/11/21 [History Last Taken 06/17/21] insulin detemir U-100 28 unit SQ QHS 02/11/21 [History Last Taken 06/17/21] insulin lispro 8 unit SQ TIDCM 02/11/21 [History Last Taken 06/17/21] isosorbide mononitrate 30 mg PO DAILY 02/11/21 [History Last Taken 06/17/21] losartan 100 mg PO DAILY 02/11/21 [History Last Taken 06/17/21] nitroglycerin 0.4 mg SL Q5M PRN 02/11/21 [History Last Taken 02/08/21] pantoprazole 20 mg PO DAILY 02/11/21 [History Last Taken 06/17/21] spironolactone 50 mg PO DAILY 02/11/21 [History Last Taken 06/17/21] trazodone 100 mg PO QHS 02/11/21 [History Last Taken 06/17/21] pregabalin [Lyrica] 75 mg PO BID 05/13/21 [History Last Taken 06/17/21] exenatide microspheres [Bydureon] 2 mg SUBCUT SA 06/18/21 [History Last Taken 06/14/21] Allergy/AdvReac Type Severity Reaction Status Date / Time allopurinol AdvReac Vomiting Verified 06/18/21 12:38 Influenza Virus Vaccines AdvReac Vomiting Verified 06/18/21 12:38 pneumococcal vaccine AdvReac Vomiting Verified 06/18/21 12:38 Family History Other Diabetes Heart disease Surgical History History of coronary artery stent placement History of lobectomy of lung Stented coronary artery Social History Smoking Status: Never smoker substance use type: does not use ROS Review of Systems ROS Unobtainable: other Details: Patient on continuous noninvasive ventilation unable to give a detailed history/ROS Vital Signs Vital Signs Vital Signs: 06/18/21 12:32 06/18/21 12:54 06/18/21 13:10 Temperature 98.3 F 98.3 F Temperature Source Temporal Oral Pulse Rate 110 H 110 H 109 H Respiratory Rate 24 H 24 H 26 H Respiratory Effort Short of Breath Labored Accessory Muscle Use Blood Pressure 145/118 H 145/118 H Blood Pressure Mean 127 127 Blood Pressure Source Blood Pressure Position Blood Pressure Location Pulse Ox 96 96 96 Oxygen Delivery Method Non-Rebreather Non-Rebreather Nasal Cannula Oxygen Flow Rate (L/min) 15 15 15 Fraction of Inspired Oxygen (FIO2) 06/18/21 13:38 06/18/21 14:20 06/18/21 14:35 Temperature 98 F Temperature Source Oral Pulse Rate 109 H 107 H Respiratory Rate 28 H 26 H Respiratory Effort Blood Pressure 135/106 H Blood Pressure Mean 115 Blood Pressure Source Blood Pressure Position Blood Pressure Location Pulse Ox 98 97 Oxygen Delivery Method Bi-pap Oxygen Flow Rate (L/min) Fraction of Inspired Oxygen (FIO2) 60 50 06/18/21 14:37 06/18/21 14:51 06/18/21 16:08 Temperature 98 F 102.1 F H Temperature Source Oral Axillary Pulse Rate 107 H 102 H 102 H Respiratory Rate 26 H 19 H 25 H Respiratory Effort Blood Pressure 135/106 H 83/55 L Blood Pressure Mean 115 64 Blood Pressure Source Monitor Blood Pressure Position Semi-Fowlers Blood Pressure Location Left Arm Pulse Ox 97 97 97 Oxygen Delivery Method Bi-pap Bi-pap Oxygen Flow Rate (L/min) 15 Fraction of Inspired Oxygen (FIO2) 60 40 40 Weight Weight: 120.6 kg Body Mass Index (BMI) 38.1 Physical Exam Const alert and oriented x3 Constitutional Narrative: Middle-aged white male lying in bed, currently on noninvasive ventilation, no signs of current respiratory distress, patient quite anxious, fianc? at the bedside General Appearance: cooperative HEENT normocephalic, head/scalp atraumatic and hearing grossly normal bilaterally HEENT Narrative: Dry oral mucous membranes Eyes PERRL, EOMs intact bilaterally and conjunctivae normal Neck no lymphadenopathy, supple, no JVD and no carotid bruits Resp normal respiratory effort, no retractions and no use of accessory muscles Auscultation: crackles bilateral (Bases) and rhonchi throughout Cardio regular rhythm, S1 normal heart sound, S2 normal heart sound, no rub, no gallops, no clicks and no JVD; Negative for no murmurs Cardio Narrative: Sinus tachycardia, 2 out of 6 systolic murmur GI normal to inspection, nondistended, normoactive bowel sounds, soft to palpation, non-tender and non-distended Extremity normal to inspection and no clubbing, cyanosis or edema Peripheral Pulses: Yes pulses 2+ throughout Skin no rashes or lesions noted, no wounds, skin turgor normal, no jaundice, no petechiae and no mottling Skin Narrative: Pale Neuro moves all extremities Neuro Narrative: Mild tremor, follows commands, unable to assess orientation as patient is on BiPAP but he does appear to remember me from his last admission Sensorium / Orientation: awake and alert Psych Mood & Affect: anxious Results Lab / Micro Data Attestation: I reviewed the patient's lab results. Result Diagrams: 06/18/21 12:45 06/18/21 12:45 Labs: Laboratory Results - last 24 hr 06/18/21 12:45: WBC 19.6 H, RBC 4.11 L, Hgb 12.0 L, Hct 38.8 L, MCV 94.4 H, MCH 29.2, MCHC 30.9 L, RDW Std Deviation 44.4 H, RDW Coeff of James 13.0, Plt Count 212, MPV 10.6, Immature Gran % (Auto) 0.600, Neut % (Auto) 84.6 H, Lymph % (Auto) 9.6 L, [place] % (Auto) 3.8, Eos % (Auto) 1.1, Baso % (Auto) 0.3, Absolute Neuts (auto) 16.6 H, Absolute Lymphs (auto) 1.87, Nucleated RBC % 0 06/18/21 12:45: Sodium 137, Potassium 5.1, Chloride 103, Carbon Dioxide 32.0, Anion Gap 2 L, BUN 41 H, Creatinine 1.97 H, Estim Creat Clear Calc 40.14, Est GFR (MDRD) Af Amer 45 L, Est GFR (MDRD) Non-Af 37 L, BUN/Creatinine Ratio 20.8 H , Glucose 168 H, Calcium 9.1, Total Bilirubin 0.40, AST 19, ALT 21, Alkaline Phosphatase 126 H, Troponin I High Sens 11.1, Total Protein 8.3 H, Albumin 3.7, Globulin 4.6 H, Albumin/Globulin Ratio 0.8 L 06/18/21 12:45: Lactic Acid 1.5 06/18/21 12:45: B-Natriuretic Peptide 64.0 06/18/21 12:50: PT 14.1, INR 1.2, APTT 25.4 06/18/21 13:25: Urine Color Yellow, Urine Clarity Clear, Urine pH 5.0, Ur Specific [place] 1.015, Urine Protein 15 H, Urine Glucose (UA) Normal, Urine Ketones Negative, Urine Occult Blood Negative, Urine Nitrite Negative, Urine Bilirubin Negative, Urine Urobilinogen Normal, Ur Leukocyte Esterase Negative, Urine RBC 0 SEEN, Urine WBC 0 SEEN, Ur Squamous Epith Cells 0 SEEN, Urine Bacteria 0 SEEN, Urine Mucus 0 SEEN ABG Data ABG results: ABG 06/18/21 06/18/21 13:01 15:06 Specimen Type YA YA Sample Site R Radial pH 7.26 L Bicarbonate Actual 28.3 H Total CO2 30 Base Excess 1 O2 Saturation 76 L ABG pCO2 63.5 H ABG pO2 48 L Gabe Test Positive VBG pH 7.37 VBG pO2 33 VBG HCO3 30 H VBG Total CO2 31 VBG O2 Sat (Calc) 61 VBG Base Excess 4 H POC Mix VBG pCO2 Pt Tmp 51.4 H O2 Delivery Device HFNC BiPAP Liter Flow 15.0 Clinical Comments bipap 09/02 Radiology Impression Chest X-Ray 06/18/21 12:41 IMPRESSION: Progressive bibasilar infiltrates worse in the right hemithorax. 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 (5) Hypertension: PLAN: Severe sepsis secondary to suspected pulmonary source -Cultures are pending -Patient was given Vanco and Zosyn in the emergency department--> will continue on the medical floor -MRSA PCR -Respiratory viral PCR -Strep pneumo and Legionella antigens -Fluid boluses at 30 cc/kg ordered -Patient has known bronchiectasis--> would recommend continued pseudomonal coverage -Hold home antihypertensives -Chest x-ray shows bibasilar infiltrates -Cycle lactic acid -Patient with a significant leukocytosis--> patient did have a normal WBC on 06/07/2021 -Pulmonary/critical care consulted Acute hypoxic respiratory failure secondary to pneumonia/bronchiectasis -Continuous BiPAP for now--> wean O2 as able -N.p.o. except for p.o. medications -D-dimer pending -Has bronchiectasis on CTA from previously and patient reports a significant history of recurrent pneumonias -Echocardiogram was performed in April and showed a normal EF -Scheduled DuoNebs -As needed nebulizers -IS -Acapella -Mucinex -No systemic steroids at this time -Cultures pending -? Check immunoglobulins with frequent infections -Pulmonary consulted DM-2 -Patient takes Lantus 28 units at home -We will give 50% of home Lantus dose at 14 units given n.p.o. status -SSI -Accu-Cheks every 6 -Cardiac carb controlled diet when patient is able to take p.o. CAD/HTN/HPL -Hold antihypertensives given hypotension -Continue statin -Continue Plavix CELESTE on CKD stage III -Baseline serum creatinine is approximately 1.2-1.4 -Serum creatinine is 1.97 -Hold Lasix -Fluid boluses pending -Repeat BMP in a.m. Anxiety/depression -Continue Xanax, BuSpar, Prozac, and trazodone -Patient does have severe anxiety Obesity -BMI is 38.1 -Complicates treatment, prognosis, and outcomes -Recommend weight loss DVT prophylaxis -Continue Lovenox 40 mg twice daily CODE STATUS -Full code Critical care time greater than 35 minutes excluding procedures Charges/Coding Procedures Hospitalists Procedures: 81966 Critial Care 1st Hr
[2021-06-18 17:21] LABS: Lactic Acid 1.2 mmol/L (0.4-1.9)
[2021-06-18 17:36] LABS: Bedside Glucose 179 mg/dL (70-110)
[2021-06-18] MEDS: Insulin Lispro 100 UNIT/ML INSULN.PEN SC ×2 (18:30→23:34)
[2021-06-18 18:51] LABS: D-Dimer Quantitative (DVT/PE) 1.07 FEU/ug/m (0.27-0.49)
--- NOTE | 2021-06-18 18:56 | PCM.RX.CS ---
Consult Pharmacy has been consulted to manage selected antiobiotic: Vancomycin Type of Consult: New start Suspected Infection: Sepsis, Pneumonia Labs: Sodium 137 mmol/L (136-145) 06/18/21 12:45 Potassium 5.1 mmol/L (3.5-5.1) 06/18/21 12:45 Chloride 103 mmol/L (98-107) 06/18/21 12:45 Carbon Dioxide 32.0 mmol/L (21.0-32.0) 06/18/21 12:45 Anion Gap 2 (5-15) L 06/18/21 12:45 BUN 41 mg/dL (7-18) H 06/18/21 12:45 Creatinine 1.97 mg/dL (0.70-1.30) H 06/18/21 12:45 Est GFR (MDRD) Af Amer 45 mL/min (>60) L 06/18/21 12:45 Est GFR (MDRD) Non-Af 37 mL/min (>60) L 06/18/21 12:45 BUN/Creatinine Ratio 20.8 RATIO (10-20) H 06/18/21 12:45 Glucose 168 mg/dL (74-106) H 06/18/21 12:45 Goal Trough: 15-20 mcg/mL Pharmacy Plan for Drug Dosing: NEW START IV VANCOMYCIN Consulting Physician: Dr. Catrachito Larkin Indication: Sepsis/ Pneumonia Goal Trough: 15-20 SrCr: 1.97 CrCl: 40 mL/min Comments: had 1750mg IV x1 in ED 06/18/21 @1519 Vancomcyin Dose: 1000mg IV Q12hr to start 06/18/21 @2300. Will start medication about 8 hours from first administered dose, as the hospitalist service ordered a loading dose. Starting scheduled dosing sooner in lieu of a supplemental dose of 250mg. Pending Level: 06/19/21 @2230, prior to 4th total dose per protocol. Pharmacy Service will continue to monitor and adjust dosing as required.
[2021-06-18] MEDS: traZODone 100 MG Tablet PO (21:34)
[2021-06-18] MEDS: busPIRone 15 MG TABLET 7.5 MG PO (21:34)
[2021-06-18] MEDS: Enoxaparin 40 MG/0.4 ML Syringe SC (21:34)
[2021-06-18] MEDS: Atorvastatin Calcium 80 MG Tablet PO (21:34)
[2021-06-18] MEDS: Pregabalin 75 MG Capsule PO (21:35)
[2021-06-18] MEDS: guaiFENesin 1,200 MG Tablet 1200 MG PO (21:35)
[2021-06-18] MEDS: ALPRAZolam 0.5 MG Tablet PO (21:35)
[2021-06-18] MEDS: 0.9% Normal Saline 1,000 ML 75 ML IV (22:08)
[2021-06-18 22:23] LABS: M R Staph aureus DNA By PCR Negative (Negative); Probe Check PASS; Specimen Processing Control PASS
[2021-06-18 23:45] LABS: Bedside Glucose 223 mg/dL (70-110)
[2021-06-19] VITALS (26 sets, daily range): BP systolic 112–186; BP diastolic 66–98; PULSE 74–96; RESP 12–22; TEMP 36.6–37.1; O2SAT 96–100
[2021-06-19] MEDS: Vancomycin IV 1,000 MG/200 ML BAG 200 MG IV ×2 (00:46→11:50)
[2021-06-19 05:02] LABS: Absolute Lymphocyte Count 0.93 X10^3/uL (0.83-4.51); Absolute Neutrophil Count 23.5 X10^3/uL (2.0-7.7); Basophil# 0.05 X10^3/uL; Basophil% 0.2 % (0-1); Hematocrit 31.6 % (40-54); Hemoglobin 10.2 g/dL (13.0-16.5); Lymphocyte # 0.93 X10^3/ul (0.83-4.51); Lymphocyte % 3.6 % (19-41); Mean Corp Hgb Conc 32.3 g/dL (32-36); Mean Corpuscular Hgb 30.1 pg (27.0-32.0); Mean Corpuscular Volume 93.2 fL (80-94); Mean Platelet Vol. 10.9 fl (6.2-12.0); Monocyte% 3.9 % (0-10); NRBC Flagged by Analyzer 0 % (0-5); Neutrophil # 23.54 X10^3/uL (2.7-7.7); Neutrophil % 90.9 % (47-70); POSITIVE DIFFERENTIAL YES; Platelet Count 171 K/mm3 (150-450); RBC Distribution Width CV 12.9 % (11.6-14.6); RBC Distribution Width SD 43.9 fl (35.1-43.9); Red Blood Count 3.39 M/mm3 (4.6-6.2); White Blood Count 25.9 K/mm3 (4.4-11.0)
[2021-06-19 05:19] LABS: ALB/GLOB Ratio 0.8 RATIO (0.9-2.4); AST(SGOT) 21 U/L (15-37); Alanine Aminotransfer ALT/SGPT 23 U/L (16-61); Albumin, Serum 2.9 g/dL (3.2-5.0); Alkaline Phosphatase 75 U/L (45-117); Anion Gap 4 (5-15); BUN 38 mg/dL (7-18); BUN/Creat Ratio 23.6 RATIO (10-20); Calcium,Total 8.2 mg/dL (8.5-10.1); Chloride 107 mmol/L (98-107); Creatinine, Serum 1.61 mg/dL (0.70-1.30); EST Glomerular Filtration Rate 46 mL/min (>60); Est Glom Filt Rate - Afr Amer 56 mL/min (>60); Estimated Creatinine Clearance 49.12 ml/min; Globulin 3.8 g/dL (2.2-4.2); Glucose 302 mg/dL (74-106); Magnesium 1.8 mg/dL (1.6-2.6); Phosphorus 2.8 mg/dL (2.5-4.9); Potassium 4.9 mmol/L (3.5-5.1); Protein, Total 6.7 g/dL (6.4-8.2); Sodium Level 139 mmol/L (136-145)
[2021-06-19 05:20] LABS: Differential Indicated SCAN CRITERIA MET
[2021-06-19] MEDS: busPIRone 15 MG TABLET 7.5 MG PO ×3 (05:43→21:50)
[2021-06-19] MEDS: Insulin Lispro 100 UNIT/ML INSULN.PEN SC ×4 (05:48→23:44)
[2021-06-19 06:09] LABS: Differential Comment SCANNED
[2021-06-19 06:41] LABS: Bedside Glucose 280 mg/dL (70-110)
--- NOTE | 2021-06-19 06:48 | CON.PCM.CC_ITS ---
Assessment & Plan Assessment/Plan (1) Severe sepsis: (2) CELESTE (acute kidney injury): (3) Diabetes mellitus: QUALIFIERS: Diabetes mellitus type: type 2 Diabetes mellitus superintendent container terminal insulin use: with custodial use Diabetes mellitus complication status: with other specified complication Qualified Code(s): E11.69 - Type 2 diabetes mellitus with other specified complication; Z79.4 - long-term (current) use of insulin (4) Acute respiratory failure with hypoxia: PLAN: RECOMMENDATIONS: 1. Wean supplemental oxygen to maintain saturations at or above 90%. 2. Continue broad-spectrum antimicrobials. 3. Encourage incentive spirometer and Acapella use. Mobilize patient as tolerated. 4. Walking oximetry prior to discharge 5. Continue PEP therapy twice daily while at home. Need to stress baseline pulmonary therapy to avoid readmission 6. Likely okay to leave the intensive care unit from my perspective IMPRESSIONS: 1. Severe sepsis Clinical and radiographic concern for underlying pulmonary infectious etiology. The patient was adequately volume resuscitated. Antimicrobials will be continued pending further infectious work-up. The patient remains hemodynamically stable. Patient with recurrent previous pneumonias, but has bronchiectasis on recent CT scan. Continue aggressive pulmonary toileting. Patient would be at risk for multidrug-resistant organisms. 2. Acute hypoxemic respiratory failure Patient with bronchiectasis on CT scan and elevation of the right hemidiaphragm. Patient appears to be responding to Acapella therapy. Other di fferential would include congestive heart failure or flash pulmonary edema as patient does have a bicuspid mitral valve with murmur on exam. Pulmonary embolism risk would be relatively low given a normal D-dimer. 3. Acute on chronic kidney disease Most likely prerenal in etiology. Creatinine improved with volume expansion. Continue to monitor urine output for now. No current indication for renal replacement therapy. 4. History of coronary artery disease/diabetes mellitus/hypertension/anxiety/depression/history of noncompliance Complicates care, management, recovery and prognosis. Continue home medications as indicated. HPI Consult Data Date of Consult: 06/19/21 HPI Narrative HPI Narrative: REA HANNA is a 61 M, with past medical history listed below, who presents to [facility] on 06/18/2021 secondary to worsening respiratory distress. Patient is a relatively poor historian and unable to provide many details. Patient states that he started to develop shortness of breath approximately 24 hours prior to presentation. Patient did have a cough productive of thick white sputum, but denies any hemoptysis. Patient reportedly has not been using his CPAP and breathing treatments at home. In the ER, patient was initially afebrile, but tachycardic at 110 bpm. Patient was requiring 15 L nasal cannula/nonrebreather to maintain saturations. Patient was significantly hypertensive at 145/118. Given patient's respiratory distress and accessory muscle use, patient was transitioned to noninvasive therapy. Patient was also given Solu-Medrol, Vanco and Zosyn after chest x-ray showed worsening infiltrates bilaterally. Creatinine was slightly elevated at 1.97 from a baseline of 1.55. Patient did have a leukocytosis of 19.6, potassium of 5.1 and lactate of 1.5. Coagulation studies were unremarkable and BNP was 64. UA was unremarkable. Patient reportedly also had some nausea and vomiting in the ER, but denied any similar symptoms prior to presentation. Upon arriving to the intensive care unit, patient was noted to have spiked a fever to 102.1 ?F and remained tachycardic. Blood pressures were initially stable, but patient did require fluid boluses and BiPAP therapy. Overnight, patient has continued to improve. Patient currently is tolerating nasal cannula oxygen. Patient is denying any pain and feels that shortness of breath is sig nificantly improved compared to previous. Patient is a relatively poor historian, but otherwise review of systems otherwise negative from a constitutional, HEENT, respiratory, cardiovascular, GI, genitourinary, musculoskeletal, skin, neurologic, psychiatric and hematologic system unless stated above. [facility] Medical History (Updated 06/18/21 @ 14:46 by Michelle Means) Amputation of one or more toes Anxiety CAD (coronary artery disease) Chest pain Congestive heart failure (CHF) COPD (chronic obstructive pulmonary disease) CPAP (continuous positive airway pressure) dependence Depression Diabetes GERD (gastroesophageal reflux disease) Hypertension Kidney stones Kidney stones Myocardial infarct Non-smoker On home oxygen therapy PAD (peripheral artery disease) Pulmonary nodule, left Sleep apnea Home Medications acetaminophen 1,000 mg PO BID PRN PRN 02/11/21 [History Last Taken 06/16/21] alprazolam 0.5 mg PO BID 02/11/21 [History Last Taken 06/17/21] atorvastatin 80 mg PO QHS 02/11/21 [History Last Taken 06/17/21] buspirone 7.5 mg PO TID 02/11/21 [History Last Taken 06/17/21] carvedilol 25 mg PO BID 02/11/21 [History Last Taken 06/17/21] clopidogrel 75 mg PO DAILY 02/11/21 [History Last Taken 06/17/21] finasteride 5 mg PO DAILY 02/11/21 [History Last Taken 06/17/21] fluoxetine 20 mg PO DAILY 02/11/21 [History Last Taken 06/17/21] fluoxetine 40 mg PO DAILY 02/11/21 [History Last Taken 06/17/21] furosemide 40 mg PO LUNCH 02/11/21 [History Last Taken 06/17/21] hydralazine 20 mg PO TID 02/11/21 [History Last Taken 06/17/21] insulin detemir U-100 28 unit SQ QHS 02/11/21 [History Last Taken 06/17/21] insulin lispro 8 unit SQ TIDCM 02/11/21 [History Last Taken 06/17/21] isosorbide mononitrate 30 mg PO DAILY 02/11/21 [History Last Taken 06/17/21] losartan 100 mg PO DAILY 02/11/21 [History Last Taken 06/17/21] nitroglycerin 0.4 mg SL Q5M PRN 02/11/21 [History Last Taken 02/08/21] pantoprazole 20 mg PO DAILY 02/11/21 [History Last Taken 06/17/21] spironolactone 50 mg PO DAILY 02/11/21 [History Last Taken 06/17/21] trazodone 100 mg PO QHS 02/11/21 [History Last Taken 06/17/21] pregabalin [Lyrica] 75 mg PO BID 05/13/21 [History Last Taken 06/17/21] exenatide microspheres [Bydureon] 2 mg SUBCUT SA 06/18/21 [History Last Taken 06/14/21] Allergy/AdvReac Type Severity Reaction Status Date / Time allopurinol AdvReac Vomiting Verified 06/18/21 12:38 Influenza Virus Vaccines AdvReac Vomiting Verified 06/18/21 12:38 pneumococcal vaccine AdvReac Vomiting Verified 06/18/21 12:38 Family History Other Diabetes Heart disease Surgical History History of coronary artery stent placement History of lobectomy of lung Stented coronary artery Social History Smoking Status: Never smoker substance use type: does not use ROS ROS Narrative See HPI Physical Exam Const alert, oriented x3 and no apparent distress General Appearance: cooperative and comfortable Nutritional Appearance: obese HEENT normocephalic, head/scalp atraumatic, hearing grossly normal bilaterally and moist oral mucous membranes Eyes PERRL, EOMs intact bilaterally and conjunctivae normal Neck no lymphadenopathy, supple, no JVD and no carotid bruits Resp normal respiratory effort, no retractions and no use of accessory muscles Auscultation: crackles bilateral (Bases) and rhonchi throughout Cardio regular rhythm, S1 normal heart sound, S2 normal heart sound, no murmurs, no rub, no gallops, no clicks and no JVD Heart Sounds: murmur systolic II/ early GI normal to inspection, nondistended, normoactive bowel sounds, soft to palpation, non-tender and non-distended Extremity normal to inspection and no clubbing, cyanosis or edema Extremity Narrative: Right midfoot amputation Peripheral Pulses: Yes pulses 2+ throughout Skin no rashes or lesions noted, no wounds, skin turgor normal, no jaundice, no petechiae and no mottling Skin Narrative: Pale Neuro CN's II-XII intact bilaterally, moves all extremities, no focal motor deficits and no sensory deficits noted Sensorium / Orientation: awake and alert Psych Mood & Affect: anxious Lab / Micro Data Result Diagrams: 06/19/21 04:40 06/19/21 04:40 Labs: Laboratory Results - last 24 hr 06/18/21 12:45: WBC 19.6 H, RBC 4.11 L, Hgb 12.0 L, Hct 38.8 L, MCV 94.4 H, MCH 29.2, MCHC 30.9 L, RDW Std Deviation 44.4 H, RDW Coeff of James 13.0, Plt Count 212, MPV 10.6, Immature Gran % (Auto) 0.600, Neut % (Auto) 84.6 H, Lymph % (Auto) 9.6 L, [place] % (Auto) 3.8, Eos % (Auto) 1.1, Baso % (Auto) 0.3, Absolute Neuts (auto) 16.6 H, Absolute Lymphs (auto) 1.87, Nucleated RBC % 0 06/18/21 12:45: Sodium 137, Potassium 5.1, Chloride 103, Carbon Dioxide 32.0, Anion Gap 2 L, BUN 41 H, Creatinine 1.97 H, Estim Creat Clear Calc 40.14, Est GFR (MDRD) Af Amer 45 L, Est GFR (MDRD) Non-Af 37 L, BUN/Creatinine Ratio 20.8 H , Glucose 168 H, Calcium 9.1, Total Bilirubin 0.40, AST 19, ALT 21, Alkaline Phosphatase 126 H, Troponin I High Sens 11.1, Total Protein 8.3 H, Albumin 3.7, Globulin 4.6 H, Albumin/Globulin Ratio 0.8 L 06/18/21 12:45: Lactic Acid 1.5 06/18/21 12:45: B-Natriuretic Peptide 64.0 06/18/21 12:50: PT 14.1, INR 1.2, APTT 25.4 06/18/21 13:25: Urine Color Yellow, Urine Clarity Clear, Urine pH 5.0, Ur Specific [place] 1.015, Urine Protein 15 H, Urine Glucose (UA) Normal, Urine Ketones Negative, Urine Occult Blood Negative, Urine Nitrite Negative, Urine Bilirubin Negative, Urine Urobilinogen Normal, Ur Leukocyte Esterase Negative, Urine RBC 0 SEEN, Urine WBC 0 SEEN, Ur Squamous Epith Cells 0 SEEN, Urine Bacteria 0 SEEN, Urine Mucus 0 SEEN 06/18/21 16:35: Lactic Acid 1.2 06/18/21 17:33: POC Glucose 179 H 06/18/21 18:10: D-Dimer Quant (PE/DVT) 1.07 H* 06/18/21 19:00: MRSA (PCR) Negative 06/18/21 23:33: POC Glucose 223 H 06/19/21 04:40: WBC 25.9 H, RBC 3.39 L, Hgb 10.2 L, Hct 31.6 L, MCV 93.2, MCH 30.1, MCHC 32.3, RDW Std Deviation 43.9, RDW Coeff of James 12.9, Plt Count 171, MPV 10.9, Immature Gran % (Auto) 1.400 H, Neut % (Auto) 90.9 H, Lymph % (Auto) 3.6 L, [place] % (Auto) 3.9, Eos % (Auto) 0.0, Baso % (Auto) 0.2, Absolute Neuts (auto) 23.5 H, Absolute Lymphs (auto) 0.93, Nucleated RBC % 0, Differential Comment SCANNED 06/19/21 04:40: Sodium 139, Potassium 4.9, Chloride 107, Carbon Dioxide 28.0, Anion Gap 4 L, BUN 38 H, Creatinine 1.61 H, Estim Creat Clear Calc 49.12, Est GFR (MDRD) Af Amer 56 L, Est GFR (MDRD) Non-Af 46 L, BUN/Creatinine Ratio 23.6 H , Glucose 302 H, Calcium 8.2 L, Phosphorus 2.8, Magnesium 1.8, Total Bilirubin 0.70, AST 21, ALT 23, Alkaline Phosphatase 75, Total Protein 6.7, Albumin 2.9 L, Globulin 3.8, Albumin/Globulin Ratio 0.8 L 06/19/21 05:48: POC Glucose 280 H Micro: Microbiology 06/18/21 19:02 Mucosa - Nasopharyngeal Respiratory Panel (PCR) - Final 06/18/21 13:25 Urine, Clean Catch Legionella Antigen - Final 06/18/21 13:25 Urine, Clean Catch Streptococcus pneumoniae Antigen (M - Final ABG Data ABG results: ABG 06/18/21 06/18/21 13:01 15:06 Specimen Type YA YA Sample Site R Radial pH 7.26 L Bicarbonate Actual 28.3 H Total CO2 30 Base Excess 1 O2 Saturation 76 L ABG pCO2 63.5 H ABG pO2 48 L Gabe Test Positive VBG pH 7.37 VBG pO2 33 VBG HCO3 30 H VBG Total CO2 31 VBG O2 Sat (Calc) 61 VBG Base Excess 4 H POC Mix VBG pCO2 Pt Tmp 51.4 H O2 Delivery Device HFNC BiPAP Liter Flow 15.0 Clinical Comments bipap 09/02 Radiology Impression Chest X-Ray 06/18/21 12:41 IMPRESSION: Progressive bibasilar infiltrates worse in the right hemithorax. Electronically Signed: Den Carver MD at 13:54 EDT , Service support , Charges/Coding Visit Charges Inpatient E&M: 65863 Init Hosp L3
[2021-06-19] MEDS: Ipratropium/Albuterol Sulfate 3 ML AMPUL.NEB INHALATION ×4 (07:17→19:04)
--- NOTE | 2021-06-19 08:07 | CASEMGMT ---
Addendum entered by Abigail Chou 06/19/21 08:43: Correction: Pt naming significant other She Gipson as HCPOA. MINISETRIO Gallagher Original Note: Social Work Pt completed HCPOA during last hospitalization naming his as HCPOA. PT choosing not to complete living will at that time. HCPOA in pt EMR. MINISTERIO Gallagher
[2021-06-19] MEDS: Enoxaparin 40 MG/0.4 ML Syringe SC ×2 (08:23→21:50)
[2021-06-19] MEDS: FLUoxetine 20 MG Capsule 60 MG PO (08:25)
[2021-06-19] MEDS: Pantoprazole Sodium 20 MG Tablet PO (08:25)
[2021-06-19] MEDS: guaiFENesin 1,200 MG Tablet 1200 MG PO ×2 (08:25→21:49)
[2021-06-19 08:26] LABS: Bedside Glucose 289 mg/dL (70-110)
[2021-06-19] MEDS: Clopidogrel Bisulfate 75 MG Tablet PO (08:26)
[2021-06-19] MEDS: Finasteride 5 MG Tablet PO (08:26)
[2021-06-19] MEDS: Pregabalin 75 MG Capsule PO ×2 (08:29→21:49)
[2021-06-19] MEDS: ALPRAZolam 0.5 MG Tablet PO ×2 (08:29→21:49)
--- NOTE | 2021-06-19 10:34 | PN.HOSP_ITS ---
Subjective Subjective Very anxious today but he is feeling better than when he came in yesterday. Breathing a little bit easier as well. No issues overnight. Objective Data Objective Data Vital Signs: Vital Signs Temp Pulse Resp BP Pulse Ox 98.7 F 83 12 154/70 H 96 06/19/21 08:00 06/19/21 09:00 06/19/21 08:00 06/19/21 09:00 06/19/21 09:00 Oxygen Flow Rate (L/min) 2 Oxygen Delivery Method Nasal Cannula Weight: 268 lb 8.368 oz Body Mass Index (BMI) 38.1 Intake & Output: Intake and Output for Last 24 Hours 06/18/21 06/19/21 06/20/21 03:59 03:59 03:59 Intake Total 5054.25 / 5054.25 8 / 8 Output Total 3600 / 4050 900 / 900 Balance 1454.25 / 1004.25 -892 / -892 Medical Nutrition Assessment Dietitian: Nutrition Therapy Diagnosis Start: 06/19/21 09:33 Freq: Status: Active Protocol: Document 06/19/21 10:22 AG (Rec: 06/19/21 10:22 [id number]) Nutrition Malnutrition Evidence of Malnutrition Exists No Clinical Problem Altered Nutrient-Related Laboratory Values Etiology r/t endocrine dysfunction Signs/Symptoms as evidenced by glucose 302 Status Active Problem Recommendation Dietitian Recommendations/Changes Cardiac, 2000 calorie/ consistent carbohydrate diet Lab / Micro Data Result Diagrams: 06/19/21 04:40 06/19/21 04:40 Labs: Laboratory Results - last 24 hr 06/18/21 12:45: WBC 19.6 H, RBC 4.11 L, Hgb 12.0 L, Hct 38.8 L, MCV 94.4 H, MCH 29.2, MCHC 30.9 L, RDW Std Deviation 44.4 H, RDW Coeff of James 13.0, Plt Count 212, MPV 10.6, Immature Gran % (Auto) 0.600, Neut % (Auto) 84.6 H, Lymph % (Auto) 9.6 L, [place] % (Auto) 3.8, Eos % (Auto) 1.1, Baso % (Auto) 0.3, Absolute Neuts (auto) 16.6 H, Absolute Lymphs (auto) 1.87, Nucleated RBC % 0 06/18/21 12:45: Sodium 137, Potassium 5.1, Chloride 103, Carbon Dioxide 32.0, Anion Gap 2 L, BUN 41 H, Creatinine 1.97 H, Estim Creat Clear Calc 40.14, Est GFR (MDRD) Af Amer 45 L, Est GFR (MDRD) Non-Af 37 L, BUN/Creatinine Ratio 20.8 H , Glucose 168 H, Calcium 9.1, Total Bilirubin 0.40, AST 19, ALT 21, Alkaline Phosphatase 126 H, Troponin I High Sens 11.1, Total Protein 8.3 H, Albumin 3.7, Globulin 4.6 H, Albumin/Globulin Ratio 0.8 L 06/18/21 12:45: Lactic Acid 1.5 06/18/21 12:45: B-Natriuretic Peptide 64.0 06/18/21 12:50: PT 14.1, INR 1.2, APTT 25.4 06/18/21 13:25: Urine Color Yellow, Urine Clarity Clear, Urine pH 5.0, Ur Specif ic [place] 1.015, Urine Protein 15 H, Urine Glucose (UA) Normal, Urine Ketones Negative, Urine Occult Blood Negative, Urine Nitrite Negative, Urine Bilirubin Negative, Urine Urobilinogen Normal, Ur Leukocyte Esterase Negative, Urine RBC 0 SEEN, Urine WBC 0 SEEN, Ur Squamous Epith Cells 0 SEEN, Urine Bacteria 0 SEEN, Urine Mucus 0 SEEN 06/18/21 16:35: Lactic Acid 1.2 06/18/21 17:33: POC Glucose 179 H 06/18/21 18:10: D-Dimer Quant (PE/DVT) 1.07 H* 06/18/21 19:00: MRSA (PCR) Negative 06/18/21 23:33: POC Glucose 223 H 06/19/21 04:40: WBC 25.9 H, RBC 3.39 L, Hgb 10.2 L, Hct 31.6 L, MCV 93.2, MCH 30.1, MCHC 32.3, RDW Std Deviation 43.9, RDW Coeff of James 12.9, Plt Count 171, M PV 10.9, Immature Gran % (Auto) 1.400 H, Neut % (Auto) 90.9 H, Lymph % (Auto) 3.6 L, [place] % (Auto) 3.9, Eos % (Auto) 0.0, Baso % (Auto) 0.2, Absolute Neuts (auto) 23.5 H, Absolute Lymphs (auto) 0.93, Nucleated RBC % 0, Differential Comment SCANNED 06/19/21 04:40: Sodium 139, Potassium 4.9, Chloride 107, Carbon Dioxide 28.0, Anion Gap 4 L, BUN 38 H, Creatinine 1.61 H, Estim Creat Clear Calc 49.12, Est GFR (MDRD) Af Amer 56 L, Est GFR (MDRD) Non-Af 46 L, BUN/Creatinine Ratio 23.6 H , Glucose 302 H, Calcium 8.2 L, Phosphorus 2.8, Magnesium 1.8, Total Bilirubin 0.70, AST 21, ALT 23, Alkaline Phosphatase 75, Total Protein 6.7, Albumin 2.9 L, Globulin 3.8, Albumin/Globulin Ratio 0.8 L 06/19/21 05:48: POC Glucose 280 H 06/19/21 08:19: POC Glucose 289 H Micro: Microbiology 06/18/21 19:02 Mucosa - Nasopharyngeal Respiratory Panel (PCR) - Final 06/18/21 13:25 Urine, Clean Catch Legionella Antigen - Final 06/18/21 13:25 Urine, Clean Catch Streptococcus pneumoniae Antigen (M - Final ABG Data ABG results: ABG 06/18/21 06/18/21 13:01 15:06 Specimen Type YA YA Sample Site R Radial pH 7.26 L Bicarbonate Actual 28.3 H Total CO2 30 Base Excess 1 O2 Saturation 76 L ABG pCO2 63.5 H ABG pO2 48 L Gabe Test Positive VBG pH 7.37 VBG pO2 33 VBG HCO3 30 H VBG Total CO2 31 VBG O2 Sat (Calc) 61 VBG Base Excess 4 H POC Mix VBG pCO2 Pt Tmp 51.4 H O2 Delivery Device HFNC BiPAP Liter Flow 15.0 Clinical Comments bipap 10/5 Radiography Diagnostic Testing: Radiology Impression Chest X-Ray 06/18/21 12:41 IMPRESSION: Progressive bibasilar infiltrates worse in the right hemithorax. Electronically Signed: Den Carver MD at 13:54 EDT , Service support , Physical Exam Const alert, oriented x3 and no apparent distress General Appearance: cooperative HEENT normocephalic and moist oral mucous membranes Eyes PERRL, EOMs intact bilaterally and conjunctivae normal Neck supple and no JVD Resp normal respiratory effort, no retractions and no use of accessory muscles Auscultation: rhonchi; Negative for crackles, rales or wheezes Cardio regular rate, regular rhythm, S1 normal heart sound and S2 normal heart sound Heart Sounds: murmur GI soft to palpation, non-tender and non-distended; Negative for hepatosplenomegaly Extremity no clubbing, cyanosis or edema Skin no rashes or lesions noted Neuro no focal motor deficits and no sensory deficits noted Psych Mood & Affect: anxious Assessment & Plan Assessment/Plan (1) Severe sepsis: (2) Acute respiratory failure with hypoxia: (3) CELESTE (acute kidney injury): (4) Diabetes mellitus: QUALIFIERS: Diabetes mellitus type: type 2 Diabetes mellitus correction insulin use: with correction use Diabetes mellitus complication status: with other specified complication Qualified Code(s): E11.69 - Type 2 diabetes mellitus with other specified complication; Z79.4 - director long term care (current) use of insulin (5) Hypertension: PLAN: 1. Severe sepsis with acute hypoxic respiratory failure secondary to pneumonia/CELESTE on CKD 3a -Continue with IV antibiotics -Strep pneumo and Legionella antigens were negative -Viral PCR is negative -Can restart his home blood pressure medications as his blood pressure is now on the high side due to his anxiety -CTA of his chest was negative for PE -Appreciate pulmonary input -Continue to monitor renal function 2. DM2 -We will hold his home medications and continue with insulin -Accu-Cheks AC at bedtime, will make adjustments as necessary 3. CAD/HTN/HLD/obesity -We will continue with his blood pressure medications as his blood pressure has risen -Continue with his home statin as well as Plavix -We will hold his home Lasix secondary to CELESTE and sepsis 4. Anxiety/depression -Continue with his home medications he does have severe anxiety here in the hospital DVT: Lovenox Charges/Coding Visit Charges Inpatient E&M: 30029 Subs Hosp L2
[2021-06-19 11:46] LABS: Bedside Glucose 332 mg/dL (70-110)
[2021-06-19] MEDS: 0.9% Normal Saline 1,000 ML 75 ML IV (13:04)
--- NOTE | 2021-06-19 13:15 | NURSING ---
report called to pcu transferred per bed with 02& belongings to room 108
--- NOTE | 2021-06-19 13:46 | CASEMGMT ---
AL[facility] chart review: Patient was admitted 05/16/21-05/21/21 for Acute hypoxic resp failure due to pneumonia. See [facility] assessment from 05/16/21. Patient was discharged to home with [facility] for SN, PT, OT. Patient states he completed antibiotics and went to follow-up appts with PCP and pulmonology. Patient is scheduled for PFTs on 06/26/21. Patient returned to [facility] 06/18/21 for SOB and was admitted for severe sepsis secondary of suspect pulmonary source. Palliative screening tool was completed for readmit and Lace/Strata 3. Patient qualifies for palliative consult and hospitalist notified. Received order from hospitalist for palliative consult. Referral sent to palliative care. [facility] updated [facility] of patient admission. Disposition Plan: Patient to discharge home with resumption of HHC, family support, and follow-up plans in place.
[2021-06-19 16:46] LABS: Bedside Glucose 319 mg/dL (70-110)
[2021-06-19] MEDS: Acetaminophen 325 MG Tablet 650 MG PO (20:19)
[2021-06-19] MEDS: Carvedilol 25 MG Tablet PO (21:49)
[2021-06-19] MEDS: traZODone 100 MG Tablet PO (21:50)
[2021-06-19] MEDS: Atorvastatin Calcium 80 MG Tablet PO (21:50)
[2021-06-20] VITALS (14 sets, daily range): BP systolic 137–166; BP diastolic 73–101; PULSE 71–100; RESP 12–20; TEMP 36.5–36.8; O2SAT 96–98
[2021-06-20 00:01] LABS: Bedside Glucose 232 mg/dL (70-110)
[2021-06-20] MEDS: Insulin Lispro 100 UNIT/ML INSULN.PEN SC ×4 (05:33→22:23)
[2021-06-20] MEDS: busPIRone 15 MG TABLET 7.5 MG PO ×3 (05:33→22:21)
[2021-06-20 05:37] LABS: Absolute Lymphocyte Count 1.06 X10^3/uL (0.83-4.51); Absolute Neutrophil Count 16.2 X10^3/uL (2.0-7.7); Basophil# 0.07 X10^3/uL; Basophil% 0.4 % (0-1); Eosinophil# 0.07 X10^3/uL; Eosinophils% 0.4 % (0-5); Hematocrit 31.8 % (40-54); Lymphocyte # 1.06 X10^3/ul (0.83-4.51); Lymphocyte % 5.7 % (19-41); Mean Corp Hgb Conc 31.4 g/dL (32-36); Mean Corpuscular Hgb 29.2 pg (27.0-32.0); Mean Corpuscular Volume 92.7 fL (80-94); Mean Platelet Vol. 11.2 fl (6.2-12.0); Monocyte# 1.23 X10^3/uL; Monocyte% 6.6 % (0-10); NRBC Flagged by Analyzer 0 % (0-5); Neutrophil # 16.17 X10^3/uL (2.7-7.7); Neutrophil % 86.1 % (47-70); Platelet Count 169 K/mm3 (150-450); RBC Distribution Width CV 12.8 % (11.6-14.6); RBC Distribution Width SD 43.4 fl (35.1-43.9); Red Blood Count 3.43 M/mm3 (4.6-6.2); White Blood Count 18.8 K/mm3 (4.4-11.0)
[2021-06-20 05:59] LABS: Anion Gap 4 (5-15); BUN 34 mg/dL (7-18); BUN/Creat Ratio 25.4 RATIO (10-20); Calcium,Total 8.5 mg/dL (8.5-10.1); Chloride 108 mmol/L (98-107); Creatinine, Serum 1.34 mg/dL (0.70-1.30); EST Glomerular Filtration Rate 57 mL/min (>60); Est Glom Filt Rate - Afr Amer 69 mL/min (>60); Estimated Creatinine Clearance 59.02 ml/min; Glucose 198 mg/dL (74-106); Potassium 4.2 mmol/L (3.5-5.1); Sodium Level 140 mmol/L (136-145)
[2021-06-20 06:20] LABS: Bedside Glucose 179 mg/dL (70-110)
[2021-06-20] MEDS: Ipratropium/Albuterol Sulfate 3 ML AMPUL.NEB INHALATION ×4 (07:04→18:55)
[2021-06-20] MEDS: FLUoxetine 20 MG Capsule 60 MG PO (08:30)
[2021-06-20] MEDS: ALPRAZolam 0.5 MG Tablet PO ×2 (08:30→22:20)
[2021-06-20] MEDS: Finasteride 5 MG Tablet PO (08:30)
[2021-06-20] MEDS: Pantoprazole Sodium 20 MG Tablet PO (08:30)
[2021-06-20] MEDS: Pregabalin 75 MG Capsule PO ×2 (08:30→22:20)
[2021-06-20] MEDS: Enoxaparin 40 MG/0.4 ML Syringe SC ×2 (08:30→22:21)
[2021-06-20] MEDS: guaiFENesin 1,200 MG Tablet 1200 MG PO ×2 (08:31→22:20)
[2021-06-20] MEDS: Clopidogrel Bisulfate 75 MG Tablet PO (08:31)
[2021-06-20] MEDS: Carvedilol 25 MG Tablet PO ×2 (08:31→22:22)
--- NOTE | 2021-06-20 09:41 | PN.HOSP_ITS ---
Subjective Subjective Doing well, no issues overnight. Maintaining on his 2 L nasal cannula. Unhappy with the food. Objective Data Objective Data Vital Signs: Vital Signs Temp Pulse Resp BP Pulse Ox 97.9 F 81 16 154/101 H 97 06/20/21 08:23 06/20/21 08:23 06/20/21 08:23 06/20/21 08:23 06/20/21 08:23 Oxygen Flow Rate (L/min) 2 Oxygen Delivery Method Nasal Cannula Weight: 267 lb 3.204 oz Body Mass Index (BMI) 38.1 Intake & Output: Intake and Output for Last 24 Hours 06/19/21 06/20/21 06/21/21 03:59 03:59 03:59 Intake Total 5054.25 / 5054.25 1806.75 / 1806.75 120 / 120 Output Total 3600 / 4050 4350 / 4350 775 / 775 Balance 1454.25 / 1004.25 -2543.25 / -2543.25 -655 / -655 Medical Nutrition Assessment Dietitian: Nutrition Therapy Diagnosis Start: 06/19/21 09:33 Freq: Status: Active Protocol: Document 06/19/21 10:22 AG (Rec: 06/19/21 10:22 [id number]) Nutrition Malnutrition Evidence of Malnutrition Exists No Clinical Problem Altered Nutrient-Related Laboratory Values Etiology r/t endocrine dysfunction Signs/Symptoms as evidenced by glucose 302 Status Active Problem Recommendation Dietitian Recommendations/Changes Cardiac, 2000 calorie/ consistent carbohydrate diet Lab / Micro Data Result Diagrams: 06/20/21 04:43 06/20/21 04:43 Labs: Laboratory Results - last 24 hr 06/19/21 11:42: POC Glucose 332 H 06/19/21 16:35: POC Glucose 319 H 06/19/21 23:42: POC Glucose 232 H 06/20/21 04:43: WBC 18.8 H, RBC 3.43 L, Hgb 10.0 L, Hct 31.8 L, MCV 92.7, MCH 29.2, MCHC 31.4 L, RDW Std Deviation 43.4, RDW Coeff of James 12.8, Plt Count 169, MPV 11.2, Immature Gran % (Auto) 0.800, Neut % (Auto) 86.1 H, Lymph % (Auto) 5.7 L, [place]son % (Auto) 6.6, Eos % (Auto) 0.4, Baso % (Auto) 0.4, Absolute Neuts (auto) 16.2 H, Absolute Lymphs (auto) 1.06, Nucleated RBC % 0 06/20/21 04:43: Sodium 140, Potassium 4.2, Chloride 108 H, Carbon Dioxide 28.0, Anion Gap 4 L, BUN 34 H, Creatinine 1.34 H, Estim Creat Clear Calc 59.02, Est GFR (MDRD) Af Amer 69, Est GFR (MDRD) Non-Af 57 L, BUN/Creatinine Ratio 25.4 H, Glucose 198 H, Calcium 8.5 06/20/21 05:33: POC Glucose 179 H Micro: Microbiology 06/18/21 12:50 Blood Culture (Wb) - Anticubital Left Blood Culture - Preliminary No growth in 48 hours. 06/18/21 12:45 Blood Culture (Wb) - Anticubital Right Blood Culture - Preliminary No growth in 48 hours. 06/18/21 13:25 Urine, Clean Catch Urine Culture - Preliminary Mixed Gram Positive Organisms 06/18/21 19:02 Mucosa - Nasopharyngeal Respiratory Panel (PCR) - Final 06/18/21 13:25 Urine, Clean Catch Legionella Antigen - Final 06/18/21 13:25 Urine, Clean Catch Streptococcus pneumoniae Antigen (M - Final Physical Exam Const alert, oriented x3 and no apparent distress General Appearance: cooperative HEENT normocephalic and moist oral mucous membranes Eyes PERRL, EOMs intact bilaterally and conjunctivae normal Neck supple and no JVD Resp normal respiratory effort, no retractions and no use of accessory muscles Auscultation: rhonchi throughout; Negative for crackles, rales or wheezes Cardio regular rate, regular rhythm, S1 normal heart sound and S2 normal heart sound Heart Sounds: murmur GI soft to palpation, non-tender and non-distended; Negative for hepatosplenomegaly Extremity no clubbing, cyanosis or edema Skin no rashes or lesions noted Neuro no focal motor deficits and no sensory deficits noted Psych affect normal Appearance: appropriate Assessment & Plan Assessment/Plan (1) Severe sepsis: (2) Acute respiratory failure with hypoxia: (3) CELESTE (acute kidney injury): (4) Diabetes mellitus: QUALIFIERS: Diabetes mellitus type: type 2 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 Severe sepsis with acute hypoxic respiratory failure secondary to pneumonia/CELESTE on CKD 3a -Continue with IV antibiotics, white count is improving, discontinued vancomycin secondary to a negative MRSA screen -Strep pneumo and Legionella antigens were negative -Viral PCR is negative -Can restart his home blood pressure medications as his blood pressure is now on the high side due to his anxiety -Echo in April 2021 did not demonstrate pulmonary hypertension or signs of heart failure. -Appreciate pulmonary input -Continue to monitor renal function 2. DM2 -We will hold his home medications and continue with insulin -Accu-Cheks AC at bedtime, will make adjustments as necessary 3. CAD/HTN/HLD/obesity -We will continue with his blood pressure medications as his blood pressure has risen -Continue with his home statin as well as Plavix -We will hold his home Lasix secondary to CELESTE and sepsis 4. Anxiety/depression -Continue with his home medications he does have severe anxiety here in the hospital DVT: Lovenox Charges/Coding Visit Charges Inpatient E&M: 58791 Subs Hosp L2
[2021-06-20] MEDS: Acetaminophen 325 MG Tablet 650 MG PO ×2 (11:20→21:04)
[2021-06-20 12:11] LABS: Bedside Glucose 342 mg/dL (70-110)
--- NOTE | 2021-06-20 12:45 | PCM.PN.INT ---
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 Wean supplemental oxygen to maintain saturations at or above 90%. 2. Complete 5 days of p.o. antibiotics 3. Encourage incentive spirometer and Acapella use. Mobilize patient as tolerated. 4. Walking oximetry prior to discharge 5. Continue PEP therapy twice daily while at home. Need to stress baseline pulmonary therapy to avoid readmission 6. Dietitian consult IMPRESSIONS: 1. Severe sepsis Clinical and radiographic concern for underlying pulmonary infectious etiology. The patient was adequately volume resuscitated. Antimicrobials will be continued pending further infectious work-up. The patient remains hemodynamically stable. Patient with recurrent previous pneumonias, but has bronchiectasis on recent CT scan. Continue aggressive pulmonary toileting. Okay to complete a 5-day course of antibiotics. 2. Acute hypoxemic respiratory failure Patient with bronchiectasis on CT scan and elevation of the right hemidiaphragm. Patient appears to be responding to Acapella therapy. Other differential would include congestive heart failure or flash pulmonary edema as patient does have a bicuspid mitral valve with murmur on exam. Clinical suspicion for an element of pulmonary edema adding to overall presentation. Patient does have a leukocytosis, but rapid recovery would go against infectious etiology. Patient with very poor insight into dietary restrictions. Dietitian consult will be ordered. Stressed with the patient the importance of maintaining his aggressive pulmonary maintenance program to avoid future hospitalizations. 3. Acute on chronic kidney disease Most likely prerenal in etiology. Creatinine improved with volume expansion. Continue to monitor urine output for now. No current indication for renal replacement therapy. 4. History of coronary artery disease/diabetes mellitus/hypertension/anxiety/depression/history of noncompliance Complicates care, management, recovery and prognosis. Continue home medications as indicated. Subjective Subjective Patient did well overnight. No hemodynamic instability was reported. Patient states he feels subjectively close to his baseline. Patient states he has been limiting salt but at the same time requested a 6 inch cold cut sub for lunch. When he was informed that this is a substantial amount of sodium, patient recommended a personal [employer] pizza with cheese sticks. Objective Data Objective Data Vital Signs: Vital Signs Temp Pulse Resp BP Pulse Ox 36.6 C 84 20 H 154/101 H 97 06/20/21 08:23 06/20/21 11:31 06/20/21 11:31 06/20/21 08:23 06/20/21 08:23 Oxygen Flow Rate (L/min) 2 Oxygen Delivery Method Nasal Cannula Weight: 121.2 kg Body Mass Index (BMI) 38.1 Intake & Output: Intake and Output for Last 24 Hours 06/18/21 06/19/21 06/20/21 23:59 23:59 23:59 Intake Total 4593 / 4593 2098.00 / 2218.00 1340 / 1340 Output Total 3600 / 3600 3000 / 4350 3225 / 3225 Balance 993 / 993 -902.00 / -2132.00 -1885 / -1885 Medical Nutrition Assessment Dietitian: Nutrition Therapy Diagnosis Start: 06/19/21 09:33 Freq: Status: Active Protocol: Document 06/19/21 10:22 AG (Rec: 06/19/21 10:22 [id number]) Nutrition Malnutrition Evidence of Malnutrition Exists No Clinical Problem Altered Nutrient-Related Laboratory Values Etiology r/t endocrine dysfunction Signs/Symptoms as evidenced by glucose 302 Status Active Problem Recommendation Dietitian Recommendations/Changes Cardiac, 2000 calorie/ consistent carbohydrate diet Lab / Micro Data Result Diagrams: 06/20/21 04:43 06/20/21 04:43 Labs: Laboratory Results - last 24 hr 06/19/21 16:35: POC Glucose 319 H 06/19/21 23:42: POC Glucose 232 H 06/20/21 04:43: WBC 18.8 H, RBC 3.43 L, Hgb 10.0 L, Hct 31.8 L, MCV 92.7, MCH 29.2, MCHC 31.4 L, RDW Std Deviation 43.4, RDW Coeff of James 12.8, Plt Count 169, MPV 11.2, Immature Gran % (Auto) 0.800, Neut % (Auto) 86.1 H, Lymph % (Auto) 5.7 L, [place] % (Auto) 6.6, Eos % (Auto) 0.4, Baso % (Auto) 0.4, Absolute Neuts (auto) 16.2 H, Absolute Lymphs (auto) 1.06, Nucleated RBC % 0 06/20/21 04:43: Sodium 140, Potassium 4.2, Chloride 108 H, Carbon Dioxide 28.0, Anion Gap 4 L, BUN 34 H, Creatinine 1.34 H, Estim Creat Clear Calc 59.02, Est GFR (MDRD) Af Amer 69, Est GFR (MDRD) Non-Af 57 L, BUN/Creatinine Ratio 25.4 H, Glucose 198 H, Calcium 8.5 06/20/21 05:33: POC Glucose 179 H 06/20/21 11:14: POC Glucose 342 H Micro: Microbiology 06/18/21 13:25 Urine, Clean Catch Urine Culture - Final Mixed Gram Positive Organisms 06/18/21 12:50 Blood Culture (Wb) - Anticubital Left Blood Culture - Preliminary No growth in 48 hours. 06/18/21 12:45 Blood Culture (Wb) - Anticubital Right Blood Culture - Preliminary No growth in 48 hours. 06/18/21 19:02 Mucosa - Nasopharyngeal Respiratory Panel (PCR) - Final 06/18/21 13:25 Urine, Clean Catch Legionella Antigen - Final 06/18/21 13:25 Urine, Clean Catch Streptococcus pneumoniae Antigen (M - Final Physical Exam Const alert, oriented x3 and no apparent distress General Appearance: cooperative and comfortable Nutritional Appearance: obese HEENT normocephalic, head/scalp atraumatic, hearing grossly normal bilaterally and moist oral mucous membranes Resp normal respiratory effort and normal air movement Auscultation: diminished lung sounds; Negative for rales, rhonchi or wheezes Cardio regular rhythm, S1 normal heart sound, S2 normal heart sound, no murmurs, no rub, no gallops, no clicks and no JVD Heart Sounds: murmur systolic II/ early Extremity Extremity Narrative: Right midfoot amputation Skin Skin Narrative: Pale Neuro CN's II-XII intact bilaterally, moves all extremities, no focal motor deficits and no sensory deficits noted Charges/Coding Visit Charges Inpatient E&M: 45006 Subs Hosp L2
[2021-06-20 16:21] LABS: Bedside Glucose 217 mg/dL (70-110)
[2021-06-20] MEDS: 0.9% Normal Saline 1,000 ML 75 ML IV (21:04)
[2021-06-20] MEDS: traZODone 100 MG Tablet PO (22:22)
[2021-06-20] MEDS: Atorvastatin Calcium 80 MG Tablet PO (22:22)
[2021-06-20 22:55] LABS: Bedside Glucose 208 mg/dL (70-110)
[2021-06-21] VITALS (11 sets, daily range): BP systolic 129–185; BP diastolic 65–78; PULSE 70–91; RESP 16–18; TEMP 36.4–36.8; O2SAT 96–100
[2021-06-21] MEDS: Insulin Lispro 100 UNIT/ML INSULN.PEN SC ×2 (06:44→11:39)
[2021-06-21] MEDS: busPIRone 15 MG TABLET 7.5 MG PO (06:44)
[2021-06-21 06:51] LABS: Bedside Glucose 179 mg/dL (70-110)
[2021-06-21 07:12] LABS: Absolute Lymphocyte Count 1.79 X10^3/uL (0.83-4.51); Absolute Neutrophil Count 7.5 X10^3/uL (2.0-7.7); Basophil# 0.06 X10^3/uL; Basophil% 0.6 % (0-1); Eosinophil# 0.34 X10^3/uL; Eosinophils% 3.2 % (0-5); Hematocrit 32.5 % (40-54); Hemoglobin 10.3 g/dL (13.0-16.5); Lymphocyte # 1.79 X10^3/ul (0.83-4.51); Lymphocyte % 16.6 % (19-41); Mean Corp Hgb Conc 31.7 g/dL (32-36); Mean Corpuscular Hgb 29.2 pg (27.0-32.0); Mean Corpuscular Volume 92.1 fL (80-94); Mean Platelet Vol. 10.7 fl (6.2-12.0); Monocyte# 1.01 X10^3/uL; Monocyte% 9.4 % (0-10); NRBC Flagged by Analyzer 0 % (0-5); Neutrophil # 7.54 X10^3/uL (2.7-7.7); Neutrophil % 69.7 % (47-70); Platelet Count 172 K/mm3 (150-450); RBC Distribution Width CV 12.8 % (11.6-14.6); RBC Distribution Width SD 43.3 fl (35.1-43.9); Red Blood Count 3.53 M/mm3 (4.6-6.2); White Blood Count 10.8 K/mm3 (4.4-11.0)
[2021-06-21] MEDS: Ipratropium/Albuterol Sulfate 3 ML AMPUL.NEB INHALATION ×2 (07:16→11:08)
[2021-06-21 07:55] LABS: Anion Gap 2 (5-15); BUN 22 mg/dL (7-18); BUN/Creat Ratio 17.3 RATIO (10-20); Calcium,Total 8.8 mg/dL (8.5-10.1); Chloride 109 mmol/L (98-107); Creatinine, Serum 1.27 mg/dL (0.70-1.30); EST Glomerular Filtration Rate 61 mL/min (>60); Est Glom Filt Rate - Afr Amer 74 mL/min (>60); Estimated Creatinine Clearance 62.27 ml/min; Glucose 184 mg/dL (74-106); Potassium 4.1 mmol/L (3.5-5.1); Sodium Level 140 mmol/L (136-145)
[2021-06-21] MEDS: Carvedilol 25 MG Tablet PO (08:04)
[2021-06-21] MEDS: guaiFENesin 1,200 MG Tablet 1200 MG PO (08:05)
[2021-06-21] MEDS: Finasteride 5 MG Tablet PO (08:05)
[2021-06-21] MEDS: Clopidogrel Bisulfate 75 MG Tablet PO (08:05)
[2021-06-21] MEDS: FLUoxetine 20 MG Capsule 60 MG PO (08:06)
[2021-06-21] MEDS: Pantoprazole Sodium 20 MG Tablet PO (08:06)
[2021-06-21] MEDS: Enoxaparin 40 MG/0.4 ML Syringe SC (08:07)
--- NOTE | 2021-06-21 08:07 | PCM.PN.INT ---
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 Wean supplemental oxygen to maintain saturations at or above 90%. 2. Complete 5 days of p.o. antibiotics 3. Encourage incentive spirometer and Acapella use. Mobilize patient as tolerated. 4. Walking oximetry prior to discharge 5. Continue PEP therapy twice daily while at home. Need to stress baseline pulmonary therapy to avoid readmission 6. Okay to discharge from a pulmonary perspective with previously planned outpatient follow-up IMPRESSIONS: 1. Severe sepsis Clinical and radiographic concern for underlying pulmonary infectious etiology. The patient was adequately volume resuscitated. Antimicrobials will be continued pending further infectious work-up. The patient remains hemodynamically stable. Patient with recurrent previous pneumonias, but has bronchiectasis on recent CT scan. Continue aggressive pulmonary toileting. Okay to complete a 5-day course of antibiotics. 2. Acute hypoxemic respiratory failure Patient with bronchiectasis on CT scan and elevation of the right hemidiaphragm. Patient appears to be responding to Acapella therapy. Other differential would include congestive heart failure or flash pulmonary edema as patient does have a bicuspid mitral valve with murmur on exam. Clinical suspicion for an element of pulmonary edema adding to overall presentation. Patient does have a leukocytosis, but rapid recovery would go against infectious etiology. Patient with very poor insight into dietary restrictions. Dietitian consult has been ordered. Stressed with the patient the importance of maintaining his aggressive pulmonary maintenance program to avoid future hospitalizations. Patient likely okay for discharge from a pulmonary perspective 3. Acute on chronic kidney disease Resolved. Most likely prerenal in etiology. Creatinine improved with volume expansion. Continue to monitor urine output for now. No current indication for renal replacement therapy. 4. History of coronary artery disease/diabetes mellitus/hypertension/anxiety/depression/history of noncompliance Complicates care, management, recovery and prognosis. Continue home medications as indicated. Subjective Subjective Patient did well overnight. No acute issues were reported. Patient has been on his baseline nasal cannula oxygen. Patient resting comfortably during my evaluation and had no complaints with brief awakening. Objective Data Objective Data Vital Signs: Vital Signs Temp Pulse Resp BP Pulse Ox 36.4 C L 71 18 149/65 H 98 06/21/21 08:00 06/21/21 08:00 06/21/21 08:00 06/21/21 08:00 06/21/21 08:00 Oxygen Flow Rate (L/min) 3 Oxygen Delivery Method Nasal Cannula Weight: 120.8 kg Body Mass Index (BMI) 38.1 Intake & Output: Intake and Output for Last 24 Hours 06/19/21 06/20/21 06/21/21 23:59 23:59 23:59 Intake Total 2098.00 / 2218.00 2791.25 / 2791.25 983.75 / 983.75 Output Total 3000 / 4350 5745 / 5745 600 / 600 Balance -902.00 / -2132.00 -2953.75 / -2953.75 383.75 / 383.75 Medical Nutrition Assessment Dietitian: Nutrition Therapy Diagnosis Start: 06/19/21 09:33 Freq: Status: Active Protocol: Document 06/19/21 10:22 AG (Rec: 06/19/21 10:22 [id number]) Nutrition Malnutrition Evidence of Malnutrition Exists No Clinical Problem Altered Nutrient-Related Laboratory Values Etiology r/t endocrine dysfunction Signs/Symptoms as evidenced by glucose 302 Status Active Problem Recommendation Dietitian Recommendations/Changes Cardiac, 2000 calorie/ consistent carbohydrate diet Lab / Micro Data Result Diagrams: 06/21/21 06:55 06/21/21 06:55 Labs: Laboratory Results - last 24 hr 06/20/21 11:14: POC Glucose 342 H 06/20/21 16:08: POC Glucose 217 H 06/20/21 22:19: POC Glucose 208 H 06/21/21 06:42: POC Glucose 179 H 06/21/21 06:55: WBC 10.8, RBC 3.53 L, Hgb 10.3 L, Hct 32.5 L, MCV 92.1, MCH 29.2, MCHC 31.7 L, RDW Std Deviation 43.3, RDW Coeff of James 12.8, Plt Count 172, MPV 10.7, Immature Gran % (Auto) 0.500, Neut % (Auto) 69.7, Lymph % (Auto) 16.6 L, Cannon % (Auto) 9.4, Eos % (Auto) 3.2, Baso % (Auto) 0.6, Absolute Neuts (auto) 7.5, Absolute Lymphs (auto) 1.79, Nucleated RBC % 0 06/21/21 06:55: Sodium 140, Potassium 4.1, Chloride 109 H, Carbon Dioxide 29.0, Anion Gap 2 L, BUN 22 H, Creatinine 1.27, Estim Creat Clear Calc 62.27, Est GFR (MDRD) Af Amer 74, Est GFR (MDRD) Non-Af 61, BUN/Creatinine Ratio 17.3, Glucose 184 H, Calcium 8.8 Micro: Microbiology 06/18/21 16:40 Blood Culture (Wb) - Anticubital Left Blood Culture - Preliminary No growth in 48 hours. 06/18/21 13:25 Urine, Clean Catch Urine Culture - Final Mixed Gram Positive Organisms 06/18/21 12:50 Blood Culture (Wb) - Anticubital Left Blood Culture - Preliminary No growth in 48 hours. 06/18/21 12:45 Blood Culture (Wb) - Anticubital Right Blood Culture - Preliminary No growth in 48 hours. 06/18/21 19:02 Mucosa - Nasopharyngeal Respiratory Panel (PCR) - Final 06/18/21 13:25 Urine, Clean Catch Legionella Antigen - Final 06/18/21 13:25 Urine, Clean Catch Streptococcus pneumoniae Antigen (M - Final Physical Exam Const alert, oriented x3 and no apparent distress General Appearance: cooperative and comfortable Nutritional Appearance: obese HEENT normocephalic, head/scalp atraumatic, hearing grossly normal bilaterally and moist oral mucous membranes Resp normal respiratory effort and normal air movement Auscultation: diminished lung sounds; Negative for rales, rhonchi or wheezes Cardio regular rhythm, S1 normal heart sound, S2 normal heart sound, no murmurs, no rub, no gallops, no clicks and no JVD Heart Sounds: murmur systolic II/ early Extremity Extremity Narrative: Right midfoot amputation Skin Skin Narrative: Pale Neuro CN's II-XII intact bilaterally, moves all extremities, no focal motor deficits and no sensory deficits noted Charges/Coding Visit Charges Inpatient E&M: 93445 Subs Hosp L2
[2021-06-21] MEDS: ALPRAZolam 0.5 MG Tablet PO (08:09)
--- NOTE | 2021-06-21 10:01 | DCINST_ITS ---
Discharge Instructions Diet Discharge Diet: Low fat / Low cholesterol, 6 Cup Fluid Restriction and 2000 mg Sodium Diet Activity Discharge Activity: Return to Normal Activity Dressing / Incision Call your doctor if you observe: Fever of 101 or Higher, Shortness of breath, Dizziness, Swelling in the ankles, Chest pain and Increased palpitations (irregular heartbeat) Follow Up Care Test Results: Test results from this visit will be discussed in further detail at your follow-up appointment, if applicable. Discharge Plan Admission Admit Date/Time: 06/18/21 15:38 Attending Provider: Gabe Mathew Consulting Providers: Rosendo Foreman ; Stefano Lanier ; Sonal George NP Discharge Orders/Prescriptions Prescriptions: New amoxicillin-pot clavulanate [Augmentin] 875-125 mg tablet 1 tab PO BID Qty: 6 RF: 0 Continued fluoxetine 40 MG capsule 40 mg PO DAILY RF: 0 furosemide 40 MG tablet 40 mg PO LUNCH RF: 0 Hold Instructions: Resume on 05/24/21. hydralazine 10 MG tablet 20 mg PO TID RF: 0 atorvastatin 80 MG tablet 80 mg PO QHS RF: 0 carvedilol 25 MG tablet 25 mg PO BID RF: 0 isosorbide mononitrate 30 MG tablet extended release 24 hr 30 mg PO DAILY RF: 0 clopidogrel 75 MG tablet 75 mg PO DAILY RF: 0 acetaminophen 500 MG tablet 1,000 mg PO BID PRN PRN (Reason: Pain 1-10 Or Fever) RF: 0 pantoprazole 20 MG tablet 20 mg PO DAILY RF: 0 alprazolam 0.5 MG tablet 0.5 mg PO BID RF: 0 trazodone 100 MG tablet 100 mg PO QHS RF: 0 nitroglycerin 0.4 MG tablet, sublingual 0.4 mg SL Q5M PRN (Reason: Chest Pain) RF: 0 buspirone 7.5 MG tablet 7.5 mg PO TID RF: 0 losartan 100 MG tablet 100 mg PO DAILY RF: 0 fluoxetine 20 MG capsule 20 mg PO DAILY RF: 0 finasteride 5 MG tablet 5 mg PO DAILY RF: 0 spironolactone 50 MG tablet 50 mg PO DAILY RF: 0 Hold Instructions: Resume on 05/24/21. insulin lispro 100 UNIT/ML insulin pen 8 unit SQ TIDCM RF: 0 insulin detemir U-100 100 UNIT/ML insulin pen 28 unit SQ QHS RF: 0 pregabalin [Lyrica] 75 mg Capsule 75 mg PO BID RF: 0 exenatide microspheres 2 mg/0.65 mL Pen Injector 2 mg SUBCUT SA RF: 0 Referrals / Follow Up: Charles Rizo [Other] - In 1 Week Charles Rizo [Other] Rosendo Foreman MD [STAFF PHYSICIAN] - See Referral Note (As previously scheduled) Disposition Disposition (needs filled in before D/C Order can be placed): Home Health Se rvice
[2021-06-21] MEDS: Pregabalin 75 MG Capsule PO (10:20)
--- NOTE | 2021-06-21 10:21 | PCM.DC.SUM ---
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 / Pulmonary Medicine Routine Consulting Provider: Pulmonary Medicine matheus Velazco Reason for Consult: Acute hypoxic respiratory failure/severe sepsis EMERGENT Consult: No MD Notified: Yes Date Notified: 06/18/21 Time Notified: 16:22 Method of Notification: Text Method of Consult:: In-Person Reason For Visit: SEVERE SEPSIS Diagnosis Discharge Diagnosis (1) Severe sepsis: Status: Acute Code(s): A41.9 - Sepsis, unspecified organism; R65.20 - Severe sepsis without septic shock (2) CELESTE (acute kidney injury): Status: Acute Code(s): N17.9 - Acute kidney failure, unspecified (3) Diabetes mellitus: Status: Acute Code(s): E11.9 - Type 2 diabetes mellitus without complications Qualifiers: Diabetes mellitus type: type 2 Diabetes mellitus alf insulin use: with alf use Diabetes mellitus complication status: with other specified complication Qualified Code(s): E11.69 - Type 2 diabetes mellitus with other specified complication; Z79.4 - prison (current) use of insulin (4) Acute respiratory failure with hypoxia: Status: Acute Code(s): J96.01 - Acute respiratory failure with hypoxia Medications at Discharge Home Medications acetaminophen 1,000 mg PO BID PRN PRN 02/11/21 alprazolam 0.5 mg PO BID 02/11/21 atorvastatin 80 mg PO QHS 02/11/21 buspirone 7.5 mg PO TID 02/11/21 carvedilol 25 mg PO BID 02/11/21 clopidogrel 75 mg PO DAILY 02/11/21 finasteride 5 mg PO DAILY 02/11/21 fluoxetine 20 mg PO DAILY 02/11/21 fluoxetine 40 mg PO DAILY 02/11/21 furosemide 40 mg PO LUNCH 02/11/21 hydralazine 20 mg PO TID 02/11/21 insulin detemir U-100 28 unit SQ QHS 02/11/21 insulin lispro 8 unit SQ TIDCM 02/11/21 isosorbide mononitrate 30 mg PO DAILY 02/11/21 losartan 100 mg PO DAILY 02/11/21 nitroglycerin 0.4 mg SL Q5M PRN 02/11/21 pantoprazole 20 mg PO DAILY 02/11/21 spironolactone 50 mg PO DAILY 02/11/21 trazodone 100 mg PO QHS 02/11/21 pregabalin [Lyrica] 75 mg PO BID 05/13/21 exenatide microspheres 2 mg SUBCUT SA 06/18/21 amoxicillin-pot clavulanate [Augmentin] 1 tab PO BID #6 tab 06/21/21 Hospital Course Operations None Procedures None Summary of Care Provided Minutes Spent on Discharge: 40 Hospital Course: Per HPI: REA HANNA, is a 61 M who presented to the emergency department [facility] on 06/18/2021 complaining of worsening shortness of breath. His fianc?e is at the bedside and she gives his history because he is currently on noninvasive ventilation. He had a recent admission here from 05/16/2021 to 05/21/2021 for acute respiratory failure. His presentation was similar to this presentation. His fianc?e states he was using oxygen 2 L at night as needed and his home CPAP but currently there is not a 2 L bleed into his CPAP machine so they have been struggling getting that addressed. She reports that he started having increased shortness of breath this morning, no documented fevers, no chills, no increasing cough, no nausea or vomiting prior to presentation but he did have a large emesis and a large bowel movement in the emergency department. At this time he shakes his head to deny any further nausea or sensation that he needs to defecate. On presentation he was found to have an oxygen saturation of 73% on home oxygen. He was placed on 15 L via nasal cannula and eventually on noninvasive ventilation. He was given breathing treatments and Solu-Medrol in the emergency department. Mr. Hanna has significant anxiety that further exacerbates his pulmonary status when he has respiratory distress. He was given Vanco and Zosyn and a sepsis work-up was initiated. He initially was afebrile but did spike a temp of 102.1 and remained tachycardic. His blood pressures were initially stable but then decompensated to pressure of 83/55 and fluid boluses were ordered. He was tachypneic with respiratory rates from 19-28 and was able to maintain oxygen saturation on 40% BiPAP with sats at 97 to 98%. His CBC shows a marked leukocytosis which was resolved with lab on 06/07/2021 where his white count was 9.6 and mild anemia that is chronic and stable. An ABG was unable to be obtained but a VBG shows a pH of 7.26 indicating hypercapnia on presentation. His BMP shows an elevated creatinine with a serum creatinine of 1.97. Baseline is 1.2-1.4. His bilirubin was within normal limits. Transaminases were within normal limits. His UA shows no signs of infection. EKG shows a sinus tachycardia without any signs of acute ischemia. His chest x-ray shows bibasilar infiltrates. He will be admitted to the ICU for continued care for his sepsis. Hospital Course: 1. Severe sepsis with acute hypoxic respiratory failure secondary to pneumonia/CELESTE on CKD 3a- 59-year-old male presented to the emergency department with shortness of breath. There is some concern for potential pneumonia was started on Zosyn and vancomycin. The vancomycin was discontinued once his MRSA screen came back negative. Pulmonology was consulted and felt that he could also potentially have had pulmonary edema given how high his blood pressures were. Regardless he is feeling much improved today, his CELESTE has resolved, he is back down to his baseline oxygen which is around 2 to 3 L at night. Will obtain an ambulatory pulse ox prior to discharge for home-going needs. We will continue with Augmentin on discharge to complete 5 days of antibiotics for his pneumonia. He will also need to follow-up with his PCP in 3 to 5 days and pulmonology as an outpatient as previously scheduled. No repeat echo was done as he just had one in April 2021. I discussed with him plan for discharge today, and he expressed understanding risk benefits of going home and will go home with home health care as well as PT and OT. 2. Type 2 diabetes, coronary artery disease, hypertension, hyperlipidemia, obesity, anxiety, depression all chronic medical conditions which complicate his care. His home medications were continued where appropriate Physical Exam Const alert, oriented x3 and no apparent distress General Appearance: cooperative HEENT normocephalic and moist oral mucous membranes Eyes PERRL, EOMs intact bilaterally and conjunctivae normal Neck supple and no JVD Resp normal respiratory effort, no retractions and no use of accessory muscles Auscultation: rhonchi throughout; Negative for crackles, rales or wheezes Cardio regular rate, regular rhythm, S1 normal heart sound and S2 normal heart sound Heart Sounds: murmur GI soft to palpation, non-tender and non-distended; Negative for hepatosplenomegaly Extremity no clubbing, cyanosis or edema Skin no rashes or lesions noted Neuro moves all extremities, no focal motor deficits and no sensory deficits noted Psych affect normal Appearance: appropriate Medical Records Data Medical Nutrition Assessment Dietitian: Nutrition Therapy Diagnosis Start: 06/19/21 09:33 Freq: Status: Active Protocol: Document 06/19/21 10:22 AG (Rec: 06/19/21 10:22 [id number]) Nutrition Malnutrition Evidence of Malnutrition Exists No Clinical Problem Altered Nutrient-Related Laboratory Values Etiology r/t endocrine dysfunction Signs/Symptoms as evidenced by glucose 302 Status Active Problem Recommendation Dietitian Recommendations/Changes Cardiac, 2000 calorie/ consistent carbohydrate diet Weight / BMI Weight Weight: 266 lb 5.094 oz Body Mass Index (BMI) 38.1 ABG / Lab / Microbiology Data Result Diagrams: 06/21/21 06:55 06/21/21 06:55 Laboratory: Laboratory Results - last 24 hr 06/20/21 11:14: POC Glucose 342 H 06/20/21 16:08: POC Glucose 217 H 06/20/21 22:19: POC Glucose 208 H 06/21/21 06:42: POC Glucose 179 H 06/21/21 06:55: WBC 10.8, RBC 3.53 L, Hgb 10.3 L, Hct 32.5 L, MCV 92.1, MCH 29.2, MCHC 31.7 L, RDW Std Deviation 43.3, RDW Coeff of James 12.8, Plt Count 172, MPV 10.7, Immature Gran % (Auto) 0.500, Neut % (Auto) 69.7, Lymph % (Auto) 16.6 L, Day % (Auto) 9.4, Eos % (Auto) 3.2, Baso % (Auto) 0.6, Absolute Neuts (auto) 7.5, Absolute Lymphs (auto) 1.79, Nucleated RBC % 0 06/21/21 06:55: Sodium 140, Potassium 4.1, Chloride 109 H, Carbon Dioxide 29.0, Anion Gap 2 L, BUN 22 H, Creatinine 1.27, Estim Creat Clear Calc 62.27, Est GFR (MDRD) Af Amer 74, Est GFR (MDRD) Non-Af 61, BUN/Creatinine Ratio 17.3, Glucose 184 H, Calcium 8.8 Microbiology: Microbiology 06/18/21 16:40 Blood Culture (Wb) - Anticubital Left Blood Culture - Preliminary No growth in 48 hours. 06/18/21 13:25 Urine, Clean Catch Urine Culture - Final Mixed Gram Positive Organisms 06/18/21 12:50 Blood Culture (Wb) - Anticubital Left Blood Culture - Preliminary No growth in 48 hours. 06/18/21 12:45 Blood Culture (Wb) - Anticubital Right Blood Culture - Preliminary No growth in 48 hours. 06/18/21 19:02 Mucosa - Nasopharyngeal Respiratory Panel (PCR) - Final 06/18/21 13:25 Urine, Clean Catch Legionella Antigen - Final 06/18/21 13:25 Urine, Clean Catch Streptococcus pneumoniae Antigen (M - Final D/C Instructions Discharge Diet: Low fat / Low cholesterol, 6 Cup Fluid Restriction and 2000 mg Sodium Diet Call your doctor if you observe: Fever of 101 or Higher, Shortness of breath, Dizziness, Swelling in the ankles, Chest pain and Increased palpitations (irregular heartbeat) Meaningful Use Info Meaningful Use Diagnoses (Choose all that apply): None applicable Discharge Plan Admission Admit Date/Time: 06/18/21 15:38 Attending Provider: Gabe Mathew Consulting Providers: Rosendo Foreman ; Stefano Lanier ; Sonal George NP Discharge Orders/Prescriptions Prescriptions: New amoxicillin-pot clavulanate [Augmentin] 875-125 mg tablet 1 tab PO BID Qty: 6 RF: 0 Continued fluoxetine 40 MG capsule 40 mg PO DAILY RF: 0 furosemide 40 MG tablet 40 mg PO LUNCH RF: 0 Hold Instructions: Resume on 05/24/21. hydralazine 10 MG tablet 20 mg PO TID RF: 0 atorvastatin 80 MG tablet 80 mg PO QHS RF: 0 carvedilol 25 MG tablet 25 mg PO BID RF: 0 isosorbide mononitrate 30 MG tablet extended release 24 hr 30 mg PO DAILY RF: 0 clopidogrel 75 MG tablet 75 mg PO DAILY RF: 0 acetaminophen 500 MG tablet 1,000 mg PO BID PRN PRN (Reason: Pain 1-10 Or Fever) RF: 0 pantoprazole 20 MG tablet 20 mg PO DAILY RF: 0 alprazolam 0.5 MG tablet 0.5 mg PO BID RF: 0 trazodone 100 MG tablet 100 mg PO QHS RF: 0 nitroglycerin 0.4 MG tablet, sublingual 0.4 mg SL Q5M PRN (Reason: Chest Pain) RF: 0 buspirone 7.5 MG tablet 7.5 mg PO TID RF: 0 losartan 100 MG tablet 100 mg PO DAILY RF: 0 fluoxetine 20 MG capsule 20 mg PO DAILY RF: 0 finasteride 5 MG tablet 5 mg PO DAILY RF: 0 spironolactone 50 MG tablet 50 mg PO DAILY RF: 0 Hold Instructions: Resume on 05/24/21. insulin lispro 100 UNIT/ML insulin pen 8 unit SQ TIDCM RF: 0 insulin detemir U-100 100 UNIT/ML insulin pen 28 unit SQ QHS RF: 0 pregabalin [Lyrica] 75 mg Capsule 75 mg PO BID RF: 0 exenatide microspheres 2 mg/0.65 mL Pen Injector 2 mg SUBCUT SA RF: 0 Referrals / Follow Up: Charles Rizo [Other] - In 1 Week Charles Rizo [Other] Rosendo Foreman MD [STAFF PHYSICIAN] - See Referral Note (As previously scheduled) Disposition Disposition (needs filled in before D/C Order can be placed): Home Health Service Charges/Coding Visit Charges Inpatient E&M: 81679 Disch Hosp
--- NOTE | 2021-06-21 11:46 | CASEMGMT ---
ALICE PHOENIX made aware pt progress with therapy and plan to return home to [facility]. Spoke with PT Abdirashid who also sees pt at home who states pt is cancelling visits at home and not thriving. ALICE PHOENIX in to pt room. Pt sig other at bedside. Pt states he does not want to go to SNF. Patient was provided a list of SNF providers including quality and resource use data and consistent with the patient?s preferred geographic region, medical needs, and insurance network. Pt states he feels he needs to go home for a couple of days to be with his sig other as it is their 5 year anniversary. He also wants to see his family. He is aware that it is not likely to be admitted to SNF from the community. Pt states he would prefer to have outpt therapy vs HHC. Discussed with pt that the recommended level of care is SNF and if he choses not to have that then HHC would be best option rather than outpt. He is agreeable to resume the HHC. PRINCIPAL PROGRAMMER in room at this time to complete therapy. Pt and sig other aware that after this session if he reconsiders to ask for ALICE PHOENIX. Notified of current plan.
[2021-06-21 12:06] LABS: Bedside Glucose 258 mg/dL (70-110)
--- NOTE | 2021-06-21 15:22 | CASEMGMT ---
RICO Note Referral Source: Demo Event Specialist Referral Reason: SNF placement CM advised that PT/OT consult indicated that patient would benefit from SNF. RICO printed out list of SNF in [facility] and highlighted in network providers. CM provided this information to patient. Plan: To be determined Virgen SANTANA
--- NOTE | 2021-06-23 14:42 | CASEMGMT ---
ALICE PHOENIX Discharge Follow-Up Phone Call. Haydee: Marisabel Strata: 4 Discharge Date: 06/21/21 Adm Dx: Severe Sepsis Call to pt to inquire about how he has been doing since being discharged from the hospital. Pt states, I've been doing really good. He states his oxygen level is staying up. Per pt, pulse ox has been b/w 97-98% w/O2 @ 2-3 L/M. He states he has been sleeping a lot, but states, that's okay, I've needed to rest. He states he was able to get the Augmentin and denies having any questions about it or his other medications. He denies having questions about the discharge instructions. He has an appt scheduled w/Dr Charles Rizo for Sat @ 0900 and w/Dr Foreman for breathing test on 06/26 and 07/01 per pt. He denies having any questions or needs. He states the [facility] nurse was out to see him today. Zelalem BACA RN, CM
== END 2021-06-21 14:21 | disposition home health service (06) | DRG 871 ==
LOC: ED 13:45 → ICU 15:47 → PCU 06-20 10:57
PROVIDERS: Admitting Provider Internal Medicine; Emergency Provider Student in an Organized Health Care Education/Training Program; Visit Provider Family Medicine
DX: A41.9 Sepsis, unspecified organism (principal); J96.01 Acute respiratory failure with hypoxia; J18.9 Pneumonia, unspecified organism; J96.02 Acute respiratory failure with hypercapnia; N17.9 Acute kidney failure, unspecified; J47.0 Bronchiectasis with acute lower respiratory infection; Q23.1 Congenital insufficiency of aortic valve; J81.1 Chronic pulmonary edema; I12.9 Hypertensive chronic kidney disease with stage 1 through stage 4 chronic kidney disease, or unspecified chronic kidney disease; E11.22 Type 2 diabetes mellitus with diabetic chronic kidney disease; E11.51 Type 2 diabetes mellitus with diabetic peripheral angiopathy without gangrene; Y95 Nosocomial condition; E66.9 Obesity, unspecified; D64.9 Anemia, unspecified; E78.5 Hyperlipidemia, unspecified; F32.9 Major depressive disorder, single episode, unspecified; F41.9 Anxiety disorder, unspecified; G47.30 Sleep apnea, unspecified; I25.10 Atherosclerotic heart disease of native coronary artery without angina pectoris; K21.9 Gastro-esophageal reflux disease without esophagitis; N18.31 Chronic kidney disease, stage 3a; R65.20 Severe sepsis without septic shock; I25.2 Old myocardial infarction; Z68.38 Body mass index [BMI] 38.0-38.9, adult; Z87.01 Personal history of pneumonia (recurrent); Z79.02 Long term (current) use of antithrombotics/antiplatelets; Z79.4 Long term (current) use of insulin; Z79.899 Other long term (current) drug therapy; Z95.5 Presence of coronary angioplasty implant and graft; Z87.442 Personal history of urinary calculi; Z91.19 Patient's noncompliance with other medical treatment and regimen
CPT/HCPCS: 36415; 71045; 80048; 80053; 81001; 82803; 82962; 83605; 83735; 83880; 84100; 84484; 85025; 85379; 85610; 85730; 87040; 87086; 87088; 87449; 87633; 87641; 93005; 94002; 94003; 94640; 94667; 94668; 97163; 97167; 97530; 99251; 99285; J7030; J7040; J7050; A4216; G0463; J2405

== ENCOUNTER → 2021-06-26 09:39 | Outpatient (CLI) | payer MEDICARE, MEDICAID, SELFPAY ==
[2021-06-10 07:53] VITALS: BMI 38.9
[2021-06-18 14:51] VITALS: BMI 38.1
--- NOTE | 2021-06-27 07:39 | PFT ---
INTRODUCTION: The patient is a 61-year-old male that presents for pulmonary function studies secondary to a diagnosis of dyspnea. Respiratory therapy reported good patient effort. Results for DLCO were unable to be obtained due to patient difficulty with maintaining a seal on mouthpiece. Bronchodilators were used during testing. INTERPRETATION: Forced expiration spirometry demonstrates no evidence of a large airways obstructive ventilatory defect. There was no significant response to aerosolized bronchodilators. Spirograms are of good quality and plateau normally. Body plethysmography was performed and revealed a decreased TLC to 4.9 L, 74% of predicted, indicative of a mild restrictive ventilatory impairment. Diffusing capacity was unable to be obtained. IMPRESSION: Mild restrictive ventilatory impairment.
== END ==
PROVIDERS: Referring Provider Nurse Practitioner Acute Care; Visit Provider Nurse Practitioner Acute Care
DX: R06.00 Dyspnea, unspecified (principal)
CPT/HCPCS: 94060; 94726

== ENCOUNTER 2021-06-27 15:35 | Observation (INO) | payer MEDICARE, MEDICAID, SELFPAY ==
[2021-06-18 14:51] VITALS: BMI 38.1
[2021-06-27] VITALS (8 sets, daily range): BP systolic 99–146; BP diastolic 52–71; PULSE 72–77; RESP 11–18; TEMP 36.8–36.9; O2SAT 97–99; BMI 37.4
--- NOTE | 2021-06-27 17:00 | RAD_ITS ---
STUDY: X-RAY CHEST REASON FOR EXAM: Male, 61 years old. LOW BP TECHNIQUE: PA and lateral views of the chest. COMPARISON: 06/18/2021 FINDINGS: The lungs are clear and expanded. Elevated right hemidiaphragm which is unchanged. Normal size heart. Normal mediastinum and pat. Normal visualized pulmonary arteries. Normal visualized aortic arch and descending thoracic aorta. Normal visualized thoracic spine. Normal visualized ribs, clavicles, and shoulders. There is no demonstrated abnormality of the visualized soft tissue structures of the upper abdomen. RAD/Chest PA and Lateral IMPRESSION: No active disease. Electronically Signed: Deuce Floyd MD at 17:25 EDT Tel , Service support ,
--- NOTE | 2021-06-27 18:00 | EDS_ITS ---
HPI History of Present Illness Chief Complaint: Hypotension Informant: patient Narrative Narrative: Patient is a 61-year-old male who presents to the emergency department for asymptomatic hypotension. He has a home health nursing care partner that checked his blood pressure today and told it was low. He is not sure what his blood pressure reading was. He otherwise feels fine. He is being treated for hypertension with multiple medications. He denies any lightheadedness or near syncope. Denies any chest pain, shortness of breath or heart palpitations. Denies any recent illness including any nausea/vomiting or diarrhea. He denies any leg swelling or calf pain. He otherwise feels well. Patient denies any recent changes to his blood pressure medicines. [facility] Medical History (Updated 06/28/21 @ 15:[address] Jean-Claude Mae ) Amputation of one or more toes Anxiety CAD (coronary artery disease) Chest pain Congestive heart failure (CHF) COPD (chronic obstructive pulmonary disease) CPAP (continuous positive airway pressure) dependence Depression Diabetes GERD (gastroesophageal reflux disease) Hypertension Kidney stones Kidney stones Migraines Myocardial infarct Non-smoker On home oxygen therapy PAD (peripheral artery disease) Pulmonary nodule, left Severe sepsis Sleep apnea Vision loss of left eye Home Medications acetaminophen 1,000 mg PO BID PRN PRN 02/11/21 [History Last Taken 06/16/21] alprazolam 0.5 mg PO BID 02/11/21 [History Last Taken 06/17/21] atorvastatin 80 mg PO QHS 02/11/21 [History Last Taken 06/17/21] buspirone 7.5 mg PO TID 02/11/21 [History Last Taken 06/17/21] carvedilol 25 mg PO BID 02/11/21 [History Last Taken 06/17/21] clopidogrel 75 mg PO DAILY 02/11/21 [History Last Taken 06/17/21] finasteride 5 mg PO DAILY 02/11/21 [History Last Taken 06/17/21] fluoxetine 20 mg PO DAILY 02/11/21 [History Last Taken 06/17/21] fluoxetine 40 mg PO DAILY 02/11/21 [History Last Taken 06/17/21] insulin detemir U-100 28 unit SQ QHS 02/11/21 [History Last Taken 06/26/21] insulin lispro See Protocol SQ TIDCM 02/11/21 [History Last Taken 06/17/21] isosorbide mononitrate 30 mg PO DAILY 02/11/21 [History Last Taken 06/17/21] losartan 100 mg PO DAILY 02/11/21 [History Last Taken 06/17/21] nitroglycerin 0.4 mg SL Q5M PRN 02/11/21 [History Last Taken 02/08/21] pantoprazole 20 mg PO DAILY 02/11/21 [History Last Taken 06/17/21] trazodone 100 mg PO QHS 02/11/21 [History Last Taken 06/17/21] pregabalin [Lyrica] 75 mg PO BID 05/13/21 [History Last Taken 06/17/21] exenatide microspheres 2 mg SUBCUT SA 06/18/21 [History Last Taken 06/21/21] furosemide 40 mg PO DAILY #0 tab 06/28/21 [Rx Last Taken 06/17/21] nystatin [Nyamyc] 1 applic TOPICAL BID #0 g 06/28/21 [Rx Last Taken Unknown] Allergy/AdvReac Type Severity Reaction Status Date / Time allopurinol AdvReac Vomiting Verified 06/27/21 15:36 Influenza Virus Vaccines AdvReac Vomiting Verified 06/27/21 15:36 pneumococcal vaccine AdvReac Vomiting Verified 06/27/21 15:36 Family History Mother Diabetes Heart disease CHF Father Heart disease AR/CAD Myocardial infarction Surgical History H/O lithotripsy History of ankle surgery History of coronary artery stent placement Hx of toe surgery S/P peripheral artery angioplasty with stent placement S/P thyroid surgery Social History household members: spouse housing: apartment Smoking Status: Never smoker alcohol intake: never substance use type: does not use ROS ROS ED Constitutional Constitutional ED: Denies chills or fever(s) Eyes Eyes: Denies change in vision ENT ENT ED: Denies epistaxis or rhinorrhea Cardiovascular Cardiovascular: Denies chest pain or palpitations Respiratory/Chest Respiratory/Chest: Denies cough, dyspnea or dyspnea on exertion Gastrointestinal Gastrointestinal: Denies abdominal pain, diarrhea, nausea or vomiting Genitourinary Genitourinary ED: Denies dysuria, hematuria or urinary frequency Musculoskeletal Musculoskeletal: Denies back pain or neck pain Integumentary Denies rash Neurologic Neurologic: Denies dizziness, headache(s) or weakness EXAM Physical Exam Const Vital Signs: 06/27/21 15:36 06/27/21 16:45 06/27/21 17:41 Temperature 98.2 F Temperature Source Temporal Pulse Rate 75 72 Respiratory Rate 14 11 L 17 Respiratory Effort Respiratory Pattern Blood Pressure 105/65 99/52 L Blood Pressure Mean 78 67 Pulse Ox 99 98 98 Oxygen Delivery Method Nasal Cannula Nasal Cannula Nasal Cannula Oxygen Flow Rate (L/min) 2 2 06/27/21 17:55 06/27/21 19:00 06/27/21 21:00 Temperature Temperature Source Pulse Rate 77 75 Respiratory Rate 12 18 Respiratory Effort Normal Non-Labored Respiratory Pattern Normal Blood Pressure 99/67 131/60 H Blood Pressure Mean 77 83 Pulse Ox 98 97 Oxygen Delivery Method Nasal Cannula Nasal Cannula Oxygen Flow Rate (L/min) 2 2 06/27/21 21:04 Temperature 98.4 F Temperature Source Temporal Pulse Rate 75 Respiratory Rate 18 Respiratory Effort Respiratory Pattern Blood Pressure 131/60 H Blood Pressure Mean 83 Pulse Ox 97 Oxygen Delivery Method Nasal Cannula Oxygen Flow Rate (L/min) 2 Positive well nourished and well developed General Appearance ED: well developed and NAD HEENT Reports normocephalic, head/scalp atraumatic and moist mucous membranes Eyes PERRL and EOMs intact bilaterally Neck supple Resp normal respiratory effort and clear to auscultation bilaterally Auscultation: Negative for rales, rhonchi or wheezes Cardio regular rate, regular rhythm and no murmurs GI normal to inspection, nondistended, normoactive bowel sounds and non-tender Palpation: soft; Negative for guarding or rebound tenderness present Extremity normal to inspection General Extremety ED: Negative for edema or tenderness General Extremity: Negative for edema Neuro no sensory deficits noted Sensorium / Orientation: alert Motor Exam: strength 5/5 throughout Psych mental status grossly normal Skin no rashes or lesions noted MDM MDM MDM Narrative Medical decision making narrative: Patient presents to the emergency department for asymptomatic hypotension. He has no complaints at time of arrival. His blood pressure is 105/65. Rest of his vital signs within normal limits. Basic lab work sent and started on a small bolus of fluids. Patient's lab work did come back with new acute kidney injury. His blood pressure has come up with IV fluids. Since is the weekend I do not feel patient be able to follow-up closely for repeat lab draw and will need hospitalization to make sure his creatinine does trend downward. This is likely due to dehydration. His blood pressure medications will need adjusted as well. Patient is agreeable to staying in the hospital this time. He otherwise has remained stable throughout ED stay. Lab Data Labs: Laboratory Results - last 24 hr 06/27/21 06/27/21 06/27/21 17:20 17:50 17:50 WBC 10.6 RBC 3.56 L Hgb 10.4 L Hct 33.4 L MCV 93.8 MCH 29.2 MCHC 31.1 L RDW Std Deviation 44.6 H RDW Coeff of James 13.0 Plt Count 251 MPV 11.2 Immature Gran % (Auto) 1.300 H Neut % (Auto) 69.4 Lymph % (Auto) 18.3 L [place] % (Auto) 9.5 Eos % (Auto) 1.1 Baso % (Auto) 0.4 Absolute Neuts (auto) 7.3 Absolute Lymphs (auto) 1.94 Nucleated RBC % 0 Sodium 139 Potassium 4.4 Chloride 105 Carbon Dioxide 27.0 Anion Gap 7 BUN 49 H Creatinine 2.47 H Estim Creat Clear Calc 4.97 Est GFR (MDRD) Af Amer 34 L Est GFR (MDRD) Non-Af 28 L BUN/Creatinine Ratio 19.8 Glucose 124 H Lactic Acid 1.5 Calcium 8.7 Radiography Diagnostic Testing: Radiology Impression Chest X-Ray 06/27/21 17:00 IMPRESSION: No active disease. Electronically Signed: Deuce Floyd MD at 17:25 EDT Tel , Service support , Discharge Plan Dx/Rx/DC Orders Clinical Impression: Hypotension, CELESTE (acute kidney injury) Disposition Disposition: Acute Care Hospital [facility] Discharge Date/Time: 06/27/21 21:46
[2021-06-27 18:09] LABS: Lactic Acid 1.5 mmol/L (0.4-1.9)
[2021-06-27 19:44] LABS: Absolute Lymphocyte Count 1.94 X10^3/uL (0.83-4.51); Absolute Neutrophil Count 7.3 X10^3/uL (2.0-7.7); Basophil# 0.04 X10^3/uL; Basophil% 0.4 % (0-1); Eosinophil# 0.12 X10^3/uL; Eosinophils% 1.1 % (0-5); Hematocrit 33.4 % (40-54); Hemoglobin 10.4 g/dL (13.0-16.5); Lymphocyte # 1.94 X10^3/ul (0.83-4.51); Lymphocyte % 18.3 % (19-41); Mean Corp Hgb Conc 31.1 g/dL (32-36); Mean Corpuscular Hgb 29.2 pg (27.0-32.0); Mean Corpuscular Volume 93.8 fL (80-94); Mean Platelet Vol. 11.2 fl (6.2-12.0); Monocyte% 9.5 % (0-10); NRBC Flagged by Analyzer 0 % (0-5); Neutrophil # 7.34 X10^3/uL (2.7-7.7); Neutrophil % 69.4 % (47-70); Platelet Count 251 K/mm3 (150-450); RBC Distribution Width SD 44.6 fl (35.1-43.9); Red Blood Count 3.56 M/mm3 (4.6-6.2); White Blood Count 10.6 K/mm3 (4.4-11.0)
[2021-06-27 20:18] LABS: Anion Gap 7 (5-15); BUN 49 mg/dL (7-18); BUN/Creat Ratio 19.8 RATIO (10-20); Calcium,Total 8.7 mg/dL (8.5-10.1); Chloride 105 mmol/L (98-107); Creatinine, Serum 2.47 mg/dL (0.70-1.30); EST Glomerular Filtration Rate 28 mL/min (>60); Est Glom Filt Rate - Afr Amer 34 mL/min (>60); Estimated Creatinine Clearance 4.97 ml/min; Glucose 124 mg/dL (74-106); Potassium 4.4 mmol/L (3.5-5.1); Sodium Level 139 mmol/L (136-145)
--- NOTE | 2021-06-27 20:55 | HP.PCM.HOS_ITS ---
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 Patient denies any recent changes to his blood pressure medication. He does report since his recent presentation he has been drinking a glass specifically tea and diet sodas and attempting to increase his water supply to which both his spouse and him believe he has been succeeding but cannot give exact amount. Work-up in the ED included T 98.2, heart rate 75, BP ranging 99-105/52-67, respiratory rate 12, 98% on 2 L nasal cannula, CBC with WBC 10.6, hemoglobin 10.4, platelet 251 without marked shift, BMP with BUN/creatinine 49/2.47, glucose 124, lactic acid 1.5, chest x-ray with no acute cardiopulmonary findings. [facility] Medical History Amputation of one or more toes Anxiety CAD (coronary artery disease) Chest pain Congestive heart failure (CHF) COPD (chronic obstructive pulmonary disease) CPAP (continuous positive airway pressure) dependence Depression Diabetes GERD (gastroesophageal reflux disease) Hypertension Kidney stones Kidney stones Myocardial infarct Non-smoker On home oxygen therapy PAD (peripheral artery disease) Pulmonary nodule, left Sleep apnea Home Medications acetaminophen 1,000 mg PO BID PRN PRN 02/11/21 [History Last Taken 06/16/21] alprazolam 0.5 mg PO BID 02/11/21 [History Last Taken 06/17/21] atorvastatin 80 mg PO QHS 02/11/21 [History Last Taken 06/17/21] buspirone 7.5 mg PO TID 02/11/21 [History Last Taken 06/17/21] carvedilol 25 mg PO BID 02/11/21 [History Last Taken 06/17/21] clopidogrel 75 mg PO DAILY 02/11/21 [History Last Taken 06/17/21] finasteride 5 mg PO DAILY 02/11/21 [History Last Taken 06/17/21] fluoxetine 20 mg PO DAILY 02/11/21 [History Last Taken 06/17/21] fluoxetine 40 mg PO DAILY 02/11/21 [History Last Taken 06/17/21] furosemide 40 mg PO LUNCH 02/11/21 [History Last Taken 06/17/21] hydralazine 20 mg PO TID 02/11/21 [History Last Taken 06/17/21] insulin detemir U-100 28 unit SQ QHS 02/11/21 [History Last Taken 06/17/21] insulin lispro 8 unit SQ TIDCM 02/11/21 [History Last Taken 06/17/21] isosorbide mononitrate 30 mg PO DAILY 02/11/21 [History Last Taken 06/17/21] losartan 100 mg PO DAILY 02/11/21 [History Last Taken 06/17/21] nitroglycerin 0.4 mg SL Q5M PRN 02/11/21 [History Last Taken 02/08/21] pantoprazole 20 mg PO DAILY 02/11/21 [History Last Taken 06/17/21] spironolactone 50 mg PO DAILY 02/11/21 [History Last Taken 06/17/21] trazodone 100 mg PO QHS 02/11/21 [History Last Taken 06/17/21] pregabalin [Lyrica] 75 mg PO BID 05/13/21 [History Last Taken 06/17/21] exenatide microspheres 2 mg SUBCUT SA 06/18/21 [History Last Taken 06/14/21] Allergy/AdvReac Type Severity Reaction Status Date / Time allopurinol AdvReac Vomiting Verified 06/27/21 15:36 Influenza Virus Vaccines AdvReac Vomiting Verified 06/27/21 15:36 pneumococcal vaccine AdvReac Vomiting Verified 06/27/21 15:36 Family History (Updated 06/27/21 @ 21:[address] Dionne Gonzalez MD) Mother Diabetes Heart disease CHF Father Heart disease [place]/CAD Myocardial infarction Surgical History (Updated 06/27/21 @ 21:[address] Dionne Gonzalez MD) H/O lithotripsy History of ankle surgery History of coronary artery stent placement Hx of toe surgery S/P peripheral artery angioplasty with stent placement S/P thyroid surgery Social History (Updated 06/27/21 @ 21:[address] Dionne Gonzalez MD) household members: spouse Smoking Status: Never smoker alcohol intake: never substance use type: does not use ROS ROS Narrative Admission Review of Systems: CONSTITUTIONAL: No weight loss, fever, chills, + weakness or fatigue. HEENT: Eyes: No visual loss, blurred vision, double vision or yellow sclerae. Ears, Nose, Throat: No hearing loss, sneezing, congestion, runny nose or sore throat. SKIN: No rash or itching, lesions, wounds. CARDIOVASCULAR: No chest pain, chest pressure or chest discomfort, palpitations, edema, orthopnea, syncopal events. RESPIRATORY: No shortness of breath, cough or sputum, wheezing, hemoptysis. GASTROINTESTINAL: No anorexia, nausea, vomiting or diarrhea, abdominal pain, melena, BRBPR. GENITOURINARY: No dysuria, frequency, urgency or retention. NEUROLOGICAL: No headache, dizziness, syncope, paralysis, ataxia, numbness or tingling in the extremities, focal weakness, change in bowel or bladder control, seizure. MUSCULOSKELETAL: + muscle, back pain, joint pain or stiffness. HEMATOLOGIC: + anemia, bleeding or bruising. LYMPHATICS: No enlarged nodes. No history of splenectomy. PSYCHIATRIC: + history of depression or anxiety. ENDOCRINOLOGIC: No reports of sweating, cold or heat intolerance. No polyuria or polydipsia. ALLERGIES: + history of asthma, hives, eczema or rhinitis. Vital Signs Vital Signs Vital Signs: 06/27/21 15:36 06/27/21 16:45 06/27/21 17:41 Temperature 98.2 F Temperature Source Temporal Pulse Rate 75 72 Respiratory Rate 14 11 L 17 Respiratory Effort Respiratory Pattern Blood Pressure 105/65 99/52 L Blood Pressure Mean 78 67 Pulse Ox 99 98 98 Oxygen Delivery Method Nasal Cannula Nasal Cannula Nasal Cannula Oxygen Flow Rate (L/min) 2 2 06/27/21 17:55 06/27/21 19:00 Temperature Temperature Source Pulse Rate 77 Respiratory Rate 12 Respiratory Effort Normal Non-Labored Respiratory Pattern Normal Blood Pressure 99/67 Blood Pressure Mean 77 Pulse Ox 98 Oxygen Delivery Method Nasal Cannula Oxygen Flow Rate (L/min) 2 Weight Weight: 25 lb Body Mass Index (BMI) 3.6 Physical Exam Narrative Physical Examination: General: Awake, alert, oriented x 3 and cooperative, seated upright in the ED bed in no apparent distress, fatigued appearing. Skin: Normal color, normal turgor, no icterus, no cyanosis except occasional staged ecchymoses, stasis disease bilateral lower extremities. HEENT: AT/NC, EOMI, PERRLA, mildly dry MM, no obvious carotid bruits or JVD noted; however, thickened neck makes examination difficult. Lungs: Distant breath sounds, greater bases, appropriate effort,, no rales, ronchi or wheezing. Heart: Regular rate and rhythm; no gallop, rub audible. Abdomen: Soft, obese, NTTP, ND, distant normal BS, no obvious HSM; however, habitus makes examination difficult. Extremities: No cyanosis, no clubbing, no marked edema, stasis disease, status post right lower extremity with toe resections. Neurological: Patient awake, alert, oriented as noted, cognitive function intact; pupils equally reactive to light and accommodation, cranial nerves II- XII grossly normal, moving all 4 extremities, no focal deficits, strength moderately global decreased. Psychiatric: Affect appears fatigued otherwise normal, no acute evidence of depressive or anxiety feelings. Results Lab / Micro Data Result Diagrams: 06/27/21 17:50 06/27/21 17:50 Labs: Laboratory Results - last 24 hr 06/27/21 17:20: Lactic Acid 1.5 06/27/21 17:50: WBC 10.6, RBC 3.56 L, Hgb 10.4 L, Hct 33.4 L, MCV 93.8, MCH 29.2, MCHC 31.1 L, RDW Std Deviation 44.6 H, RDW Coeff of James 13.0, Plt Count 251, MPV 11.2, Immature Gran % (Auto) 1.300 H, Neut % (Auto) 69.4, Lymph % (Auto) 18.3 L, [place] % (Auto) 9.5, Eos % (Auto) 1.1, Baso % (Auto) 0.4, Absolute Neuts (auto) 7.3, Absolute Lymphs (auto) 1.94, Nucleated RBC % 0 06/27/21 17:50: Sodium 139, Potassium 4.4, Chloride 105, Carbon Dioxide 27.0, Anion Gap 7, BUN 49 H, Creatinine 2.47 H, Estim Creat Clear Calc 4.97, Est GFR (MDRD) Af Amer 34 L, Est GFR (MDRD) Non-Af 28 L, BUN/Creatinine Ratio 19.8, Glucose 124 H, Calcium 8.7 Radiology Impression Chest X-Ray 06/27/21 17:00 IMPRESSION: No active disease. 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 1. Acute kidney injury on CKD stage IIIa with Hypotension: Suspect pre-renal given hypotension coupled with nephrotoxic regimen. Admission BUN/Cr 49/2.47, prior baseline creatinine noted to be most recently 06/21/2021 1.27 however prior to this had been elevated but trended down 06/18/2021 1.972 06/20/2021 1.34 during hospital admission with severe sepsis with respiratory failure secondary to pneumonia and CELESTE on chronic kidney disease stage IIIa. Will judiciously hydrate, hold nephrotoxic medications and repeat chemistry in AM. If no improvement would plan FeNa assessment. 2. Chronic CHF, unclear type: We will continue Plavix, statin, holding hypertensive regimen including Coreg, spironolactone, isosorbide, losartan, Lasix therapy, resume as noted once appropriate. Judiciously hydrating given #1, monitor for any overload. 3. CAD, PAD: Patient status post PCI x2 as well as bilateral lower extremity stenting with 2 stents on each side, unclear specific locations, will continue Plavix, statin therapy, as noted holding ARB, beta-sarita therapy, resume once appropriate. 4. Hypertension: Holding regimen given hypotension, likely associated w/ as noted CELESTE, resume potentially at reduced dose or regimen once improved. 5. Hyperlipidemia: We will continue patient on statin therapy. 6. Diabetes mellitus type II with peripheral neuropathy: Will continue home insulin regimen, ADA diet, accu checks w/ ISS, continue Lyrica with changes as needed if kidney function worsens. 7. Chronic normocytic anemia: Admission hemoglobin 10.4, baseline 10, stable, trend. 8. Anxiety and depression: We will continue patient home fluoxetine and BuSpar as well as alprazolam regimen to avoid withdrawal but if worsen function further may necessitate alteration to this regimen. 9. Chronic COPD: Reported, no history of tobacco use, not on any routine inhalers, as needed albuterol if necessary, encourage head of bed and I-S. 10. Obesity: Weight loss and lifestyle changes encouraged. 11 GERD: Continue home PPI. 12. MARY: CPAP nightly. 13. DVT Prophylaxis: SCDs, heparin. Charges/Coding Visit Charges OBSV E&M: 66434 Initial observation care L3
[2021-06-27] MEDS: traZODone 100 MG Tablet PO (22:59)
[2021-06-27] MEDS: Atorvastatin Calcium 80 MG Tablet PO (22:59)
[2021-06-27] MEDS: Heparin Injection (Vial) 5,000 UNIT/ML VIAL 5000 UNIT SC (22:59)
[2021-06-27] MEDS: ALPRAZolam 0.5 MG Tablet PO (22:59)
[2021-06-27] MEDS: 0.9% Normal Saline 1,000 ML 125 ML IV (22:59)
[2021-06-27] MEDS: Pregabalin 75 MG Capsule PO (23:00)
[2021-06-27 23:11] LABS: Bedside Glucose 180 mg/dL (70-110)
[2021-06-28 03:58] VITALS: BP 144/72; PULSE 66; RESP 18; TEMP 37; O2SAT 99
[2021-06-28] MEDS: busPIRone 5 MG Tablet 7.5 MG PO (06:48)
[2021-06-28] MEDS: 0.9% Normal Saline 1,000 ML 125 ML IV (06:49)
[2021-06-28] MEDS: Insulin Lispro 100 UNIT/ML INSULN.PEN SC (06:49)
[2021-06-28 07:07] LABS: Absolute Lymphocyte Count 2.28 X10^3/uL (0.83-4.51); Absolute Neutrophil Count 4.1 X10^3/uL (2.0-7.7); Basophil# 0.03 X10^3/uL; Basophil% 0.4 % (0-1); Eosinophil# 0.15 X10^3/uL; Hemoglobin 9.7 g/dL (13.0-16.5); Lymphocyte # 2.28 X10^3/ul (0.83-4.51); Lymphocyte % 30.2 % (19-41); Mean Corp Hgb Conc 31.3 g/dL (32-36); Mean Corpuscular Hgb 29.1 pg (27.0-32.0); Mean Corpuscular Volume 93.1 fL (80-94); Mean Platelet Vol. 10.5 fl (6.2-12.0); Monocyte# 0.92 X10^3/uL; Monocyte% 12.2 % (0-10); NRBC Flagged by Analyzer 0 % (0-5); Neutrophil % 54.1 % (47-70); Platelet Count 197 K/mm3 (150-450); RBC Distribution Width CV 13.1 % (11.6-14.6); RBC Distribution Width SD 44.4 fl (35.1-43.9); Red Blood Count 3.33 M/mm3 (4.6-6.2); White Blood Count 7.6 K/mm3 (4.4-11.0)
[2021-06-28 07:10] LABS: Bedside Glucose 165 mg/dL (70-110)
[2021-06-28 07:32] LABS: ALB/GLOB Ratio 0.8 RATIO (0.9-2.4); AST(SGOT) 15 U/L (15-37); Alanine Aminotransfer ALT/SGPT 25 U/L (16-61); Albumin, Serum 2.9 g/dL (3.2-5.0); Alkaline Phosphatase 93 U/L (45-117); Anion Gap 4 (5-15); BUN 38 mg/dL (7-18); BUN/Creat Ratio 23.9 RATIO (10-20); Calcium,Total 8.3 mg/dL (8.5-10.1); Chloride 109 mmol/L (98-107); Creatinine, Serum 1.59 mg/dL (0.70-1.30); EST Glomerular Filtration Rate 47 mL/min (>60); Est Glom Filt Rate - Afr Amer 57 mL/min (>60); Estimated Creatinine Clearance 49.74 ml/min; Globulin 3.5 g/dL (2.2-4.2); Glucose 184 mg/dL (74-106); Protein, Total 6.4 g/dL (6.4-8.2); Sodium Level 141 mmol/L (136-145)
[2021-06-28 08:12] VITALS: O2SAT 96
[2021-06-28 08:18] VITALS: BP 129/72; PULSE 64; RESP 18; TEMP 36.2; O2SAT 98
[2021-06-28] MEDS: Heparin Injection (Vial) 5,000 UNIT/ML VIAL 5000 UNIT SC (08:24)
[2021-06-28] MEDS: Nystatin Powder 15gm Bottle 1 APPLIC TOPICAL (08:24)
[2021-06-28] MEDS: FLUoxetine 20 MG Capsule 60 MG PO (08:25)
[2021-06-28] MEDS: Clopidogrel Bisulfate 75 MG Tablet PO (08:26)
[2021-06-28] MEDS: Pantoprazole Sodium 20 MG Tablet PO (08:26)
[2021-06-28] MEDS: Finasteride 5 MG Tablet PO (08:27)
[2021-06-28] MEDS: Glucerna Shake 120 ML LIQUID PO (08:30)
[2021-06-28] MEDS: Pregabalin 75 MG Capsule PO (08:31)
[2021-06-28] MEDS: ALPRAZolam 0.5 MG Tablet PO (08:39)
--- NOTE | 2021-06-28 10:48 | PCM.DC ---
Discharge Instructions Diet Discharge Diet: 1800 Calorie Control Diet Activity Discharge Activity: Return to Normal Activity Weight Bearing Status: Full weight bearing Follow Up Care Test Results: Test results from this visit will be discussed in further detail at your follow-up appointment, if applicable. Discharge Plan Admission Admit Date/Time: 06/27/21 21:07 Primary Reason for Your Visit: HYPOTENSION Attending Provider: Rubio Miller Instructions Patient Instructions: ED Chest Pain, Noncardiac Discharge Orders/Prescriptions Prescriptions: New nystatin [Nyamyc] 100,000 unit/gram Powder 1 applic topical BID Qty: 0 RF: 0 Continued fluoxetine 40 MG capsule 40 mg PO DAILY RF: 0 atorvastatin 80 MG tablet 80 mg PO QHS RF: 0 carvedilol 25 MG tablet 25 mg PO BID RF: 0 isosorbide mononitrate 30 MG tablet extended release 24 hr 30 mg PO DAILY RF: 0 clopidogrel 75 MG tablet 75 mg PO DAILY RF: 0 acetaminophen 500 MG tablet 1,000 mg PO BID PRN PRN (Reason: Pain 1-10 Or Fever) RF: 0 pantoprazole 20 MG tablet 20 mg PO DAILY RF: 0 alprazolam 0.5 MG tablet 0.5 mg PO BID RF: 0 trazodone 100 MG tablet 100 mg PO QHS RF: 0 nitroglycerin 0.4 MG tablet, sublingual 0.4 mg SL Q5M PRN (Reason: Chest Pain) RF: 0 buspirone 7.5 MG tablet 7.5 mg PO TID RF: 0 losartan 100 MG tablet 100 mg PO DAILY RF: 0 fluoxetine 20 MG capsule 20 mg PO DAILY RF: 0 finasteride 5 MG tablet 5 mg PO DAILY RF: 0 insulin lispro 100 UNIT/ML insulin pen See Protocol unit SQ TIDCM RF: 0 insulin detemir U-100 100 UNIT/ML insulin pen 28 unit SQ QHS RF: 0 pregabalin [Lyrica] 75 mg Capsule 75 mg PO BID RF: 0 exenatide microspheres 2 mg/0.65 mL Pen Injector 2 mg SUBCUT SA RF: 0 Changed furosemide 40 MG tablet 40 mg PO DAILY Qty: 0 RF: 0 Discontinued hydralazine 10 MG tablet 20 mg PO TID RF: 0 spironolactone 50 MG tablet 50 mg PO DAILY RF: 0 Hold Instructions: Resume on 05/24/21. Referrals / Follow Up: Charles Rizo [Other] Disposition Disposition (needs filled in before D/C Order can be placed): Home, Self Care
[2021-06-28 11:51] VITALS: BP 146/74; PULSE 72; RESP 18; TEMP 36.5; O2SAT 98
[2021-06-28] MEDS: Acetaminophen 325 MG Tablet 650 MG PO (11:58)
[2021-06-28 12:10] LABS: Bedside Glucose 192 mg/dL (70-110)
--- NOTE | 2021-06-28 16:58 | DS.PCM_ITS ---
Providers Date of Admission: 06/27/21 Date of Discharge: 06/28/21 Primary Care Physician: Charles Rizo Reason For Visit: hypotension Diagnosis Discharge Diagnosis (1) CELESTE (acute kidney injury): Status: Acute Code(s): N17.9 - Acute kidney failure, unspecified Plan: 1. Acute kidney injury #2 hypotension secondary to blood pressure medications #3 type 2 diabetes #4 coronary artery disease Medications at Discharge Home Medications acetaminophen 1,000 mg PO BID PRN PRN 02/11/21 alprazolam 0.5 mg PO BID 02/11/21 atorvastatin 80 mg PO QHS 02/11/21 buspirone 7.5 mg PO TID 02/11/21 carvedilol 25 mg PO BID 02/11/21 clopidogrel 75 mg PO DAILY 02/11/21 finasteride 5 mg PO DAILY 02/11/21 fluoxetine 20 mg PO DAILY 02/11/21 fluoxetine 40 mg PO DAILY 02/11/21 insulin detemir U-100 28 unit SQ QHS 02/11/21 insulin lispro See Protocol SQ TIDCM 02/11/21 isosorbide mononitrate 30 mg PO DAILY 02/11/21 losartan 100 mg PO DAILY 02/11/21 nitroglycerin 0.4 mg SL Q5M PRN 02/11/21 pantoprazole 20 mg PO DAILY 02/11/21 trazodone 100 mg PO QHS 02/11/21 pregabalin [Lyrica] 75 mg PO BID 05/13/21 exenatide microspheres 2 mg SUBCUT SA 06/18/21 furosemide 40 mg PO DAILY #0 tab 06/28/21 nystatin [Nyamyc] 1 applic TOPICAL BID #0 g 06/28/21 Hospital Course Operations None Procedures None Summary of Care Provided Minutes Spent on Discharge: 31 Hospital Course: This 61-year-old white male was seen in the emergency room at [facility] with a chief complaint of hypotension. A home health medicare insurance specialist checked his blood pressure and told the patient it was low, the patient was not sure what the reading was. Work-up in the emergency room i ncluded blood pressure readings which were as low as 99/52, labs were obtained which revealed a slightly low hemoglobin at 10.4 and an elevated creatinine at 2.47. Patient was placed in the observation status on PCU for hypotension and acute kidney injury, he was given IV fluids, and all his blood pressure medications were held. On 06/28/2021, patient was seen and examined: On examination he appeared in good health and spirits. Vital signs as documented. Skin warm and dry and without overt rashes. Neck without JVD, neck was supple, trachea midline, thyroid was normal. Lungs clear bilaterally, normal air movement was noted. Heart exam notable for regular rhythm, normal sounds and absence of murmurs, rubs or gallops. Abdomen unremarkable and without evidence of organomegaly, masses, or abdominal aortic enlargement. Bowel sounds are present, abdomen is not distended. Extremities nonedematous, no cyanosis was noted, no clubbing was noted. Neuro: Cranial nerves II through XII are grossly intact, no focal motor deficits were noted, sensation to light touch and pinprick intact, motor exam 5/5 throughout. Psych: Patient is alert and oriented x3, he does not appear anxious or depressed, he does not appear agitated. Patient is a poor informant. Patient's creatinine at the time of discharge was 1.59, patient was not hypotensive, I took the liberty of reducing the patient's blood pressure medications at the time of discharge and I talked to his who was in the room at the time of my examination. Patient was discharged home in stable condition on 06/28/2021. Weight / BMI Weight Weight: 118.9 kg Body Mass Index (BMI) 37.4 ABG / Lab / Microbiology Data Result Diagrams: 06/28/21 06:55 06/28/21 06:55 Laboratory: Laboratory Results - last 24 hr 06/27/21 17:20: Lactic Acid 1.5 06/27/21 17:50: WBC 10.6, RBC 3.56 L, Hgb 10.4 L, Hct 33.4 L, MCV 93.8, MCH 29.2, MCHC 31.1 L, RDW Std Deviation 44.6 H, RDW Coeff of James 13.0, Plt Count 251, MPV 11.2, Immature Gran % (Auto) 1.300 H, Neut % (Auto) 69.4, Lymph % (Auto) 18.3 L, [place] % (Auto) 9.5, Eos % (Auto) 1.1, Baso % (Auto) 0.4, Absolute Neuts (auto) 7.3, Absolute Lymphs (auto) 1.94, Nucleated RBC % 0 06/27/21 17:50: Sodium 139, Potassium 4.4, Chloride 105, Carbon Dioxide 27.0, Anion Gap 7, BUN 49 H, Creatinine 2.47 H, Estim Creat Clear Calc 4.97, Est GFR (MDRD) Af Amer 34 L, Est GFR (MDRD) Non-Af 28 L, BUN/Creatinine Ratio 19.8, Glucose 124 H, Calcium 8.7 06/27/21 22:57: POC Glucose 180 H 06/28/21 06:41: POC Glucose 165 H 06/28/21 06:55: WBC 7.6, RBC 3.33 L, Hgb 9.7 L, Hct 31.0 L, MCV 93.1, MCH 29.1, MCHC 31.3 L, RDW Std Deviation 44.4 H, RDW Coeff of James 13.1, Plt Count 197, MPV 10.5, Immature Gran % (Auto) 1.100 H, Neut % (Auto) 54.1, Lymph % (Auto) 30.2, [place] % (Auto) 12.2 H, Eos % (Auto) 2.0, Baso % (Auto) 0.4, Absolute Neuts (auto) 4.1, Absolute Lymphs (auto) 2.28, Nucleated RBC % 0 06/28/21 06:55: Sodium 141, Potassium 4.0, Chloride 109 H, Carbon Dioxide 28.0, Anion Gap 4 L, BUN 38 H, Creatinine 1.59 H, Estim Creat Clear Calc 49.74, Est GFR (MDRD) Af Amer 57 L, Est GFR (MDRD) Non-Af 47 L, BUN/Creatinine Ratio 23.9 H , Glucose 184 H, Calcium 8.3 L, Total Bilirubin 0.30, AST 15, ALT 25, Alkaline Phosphatase 93, Total Protein 6.4, Albumin 2.9 L, Globulin 3.5, Albumin/Globulin Ratio 0.8 L 06/28/21 12:02: POC Glucose 192 H Radiography Diagnostic Testing: Radiology Impression Chest X-Ray 06/27/21 17:00 IMPRESSION: No active disease. Electronically Signed: Deuce Floyd MD at 17:25 EDT Tel , Service support , D/C Instructions Discharge Diet: 1800 Calorie Control Diet Weight Bearing Status: Full weight bearing Meaningful Use Info Meaningful Use Diagnoses (Choose all that apply): None applicable Discharge Plan Admission Admit Date/Time: 06/27/21 21:07 Primary Reason for Your Visit: HYPOTENSION Attending Provider: Rubio Miller Instructions Patient Instructions: ED Chest Pain, Noncardiac Additional Instructions / Restrictions: Patient Problems: Altered Health Status related to Hospitalization Patient Goals: *Optimal Level of Health *Keep Appointments *Medication Compliance *Remain SafePatient Problems: Altered Health Status related to Hospitalization Patient Goals: *Optimal Level of Health *Keep Appointments *Medication Compliance *Remain Safe Discharge Orders/Prescriptions Prescriptions: New nystatin [Nyamyc] 100,000 unit/gram Powder 1 applic topical BID Qty: 0 RF: 0 Continued fluoxetine 40 MG capsule 40 mg PO DAILY RF: 0 atorvastatin 80 MG tablet 80 mg PO QHS RF: 0 carvedilol 25 MG tablet 25 mg PO BID RF: 0 isosorbide mononitrate 30 MG tablet extended release 24 hr 30 mg PO DAILY RF: 0 clopidogrel 75 MG tablet 75 mg PO DAILY RF: 0 acetaminophen 500 MG tablet 1,000 mg PO BID PRN PRN (Reason: Pain 1-10 Or Fever) RF: 0 pantoprazole 20 MG tablet 20 mg PO DAILY RF: 0 alprazolam 0.5 MG tablet 0.5 mg PO BID RF: 0 trazodone 100 MG tablet 100 mg PO QHS RF: 0 nitroglycerin 0.4 MG tablet, sublingual 0.4 mg SL Q5M PRN (Reason: Chest Pain) RF: 0 buspirone 7.5 MG tablet 7.5 mg PO TID RF: 0 losartan 100 MG tablet 100 mg PO DAILY RF: 0 fluoxetine 20 MG capsule 20 mg PO DAILY RF: 0 finasteride 5 MG tablet 5 mg PO DAILY RF: 0 insulin lispro 100 UNIT/ML insulin pen See Protocol unit SQ TIDCM RF: 0 insulin detemir U-100 100 UNIT/ML insulin pen 28 unit SQ QHS RF: 0 pregabalin [Lyrica] 75 mg Capsule 75 mg PO BID RF: 0 exenatide microspheres 2 mg/0.65 mL Pen Injector 2 mg SUBCUT SA RF: 0 Changed furosemide 40 MG tablet 40 mg PO DAILY Qty: 0 RF: 0 Discontinued hydralazine 10 MG tablet 20 mg PO TID RF: 0 spironolactone 50 MG tablet 50 mg PO DAILY RF: 0 Hold Instructions: Resume on 05/24/21. Referrals / Follow Up: Charles Rizo [Other] Disposition Disposition (needs filled in before D/C Order can be placed): Home, Self Care Charges/Coding Visit Charges OBSV E&M: 60443 Observation care discharge
== END 2021-06-28 11:16 | disposition home or self-care (01) ==
LOC: ED 21:16 → PCU 21:19
PROVIDERS: Admitting Provider Family Medicine; Emergency Provider Emergency Medicine; Visit Provider Internal Medicine
DX: N17.9 Acute kidney failure, unspecified (principal); I95.9 Hypotension, unspecified; E11.51 Type 2 diabetes mellitus with diabetic peripheral angiopathy without gangrene; I25.10 Atherosclerotic heart disease of native coronary artery without angina pectoris; T50.915A Adverse effect of multiple unspecified drugs, medicaments and biological substances, initial encounter; I11.0 Hypertensive heart disease with heart failure; I50.9 Heart failure, unspecified; J44.9 Chronic obstructive pulmonary disease, unspecified; E78.5 Hyperlipidemia, unspecified; G47.33 Obstructive sleep apnea (adult) (pediatric); I25.2 Old myocardial infarction; K21.9 Gastro-esophageal reflux disease without esophagitis; F32.9 Major depressive disorder, single episode, unspecified; F41.9 Anxiety disorder, unspecified; E11.42 Type 2 diabetes mellitus with diabetic polyneuropathy; D64.9 Anemia, unspecified; E66.9 Obesity, unspecified; Z79.899 Other long term (current) drug therapy; Z79.4 Long term (current) use of insulin; Z79.02 Long term (current) use of antithrombotics/antiplatelets; Z99.81 Dependence on supplemental oxygen; Z68.37 Body mass index [BMI] 37.0-37.9, adult; N40.0 Benign prostatic hyperplasia without lower urinary tract symptoms
CPT/HCPCS: 36415; 71046; 80048; 80053; 82962; 83605; 85025; 87040; 96360; 96361; 96372; 99218; 99251; 99285; J7030; G0378; G0463

== ENCOUNTER 2021-06-30 07:05 | Inpatient (IN) | payer MEDICARE, MEDICAID, SELFPAY ==
[2021-06-27 21:58] VITALS: BMI 37.4
[2021-06-30] VITALS (16 sets, daily range): BP systolic 108–161; BP diastolic 55–115; PULSE 76–114; RESP 16–30; TEMP 36.8–38.7; O2SAT 93–99; BMI 39.0; BMI 37.6
--- NOTE | 2021-06-30 07:13 | EKG12_ITS ---
Test Reason : SOB Blood Pressure : / mmHG Vent. Rate : 110 BPM Atrial Rate : 110 BPM P-R Int : 206 ms QRS Dur : 088 ms QT Int : 320 ms P-R-T Axes : 081 017 047 degrees QTc Int : 433 ms Sinus tachycardia Otherwise normal ECG Confirmed by ROLAND JOHNS, FAUSTINA ([id number]), desk editor SHARAN DOE ([id number]) on 07/03/2021 12:44:58 PM Referred By: SCAR Confirmed By:FAUSTINA WATKINS MD
--- NOTE | 2021-06-30 07:24 | EDS_ITS ---
HPI History of Present Illness Chief Complaint: Shortness of Breath Narrative Narrative: 61-year-old male presenting with shortness of breath, hypoxia, fever from home. Patient states he was released from the hospital yesterday after having an CELESTE had pneumonia and states he is feeling worse overnight. Patient states that he feels like he is going to . Patient does complain of chills, body aches, dyspnea. He does not complain of loss of taste or smell. but he cannot remember for the Pfizer Materna. Patient states he has had 2 Covid vaccines. Patient states that he lives on 2 to 3 L at home baseline. He was found by EMS to be in the mid 80s on his baseline home O2. His CO2 was 28 Per EMS. [facility] Medical History Amputation of one or more toes Anxiety CAD (coronary artery disease) Chest pain Congestive heart failure (CHF) COPD (chronic obstructive pulmonary disease) CPAP (continuous positive airway pressure) dependence Depression Diabetes GERD (gastroesophageal reflux disease) Hypertension Kidney stones Kidney stones Migraines Myocardial infarct Non-smoker On home oxygen therapy PAD (peripheral artery disease) Pulmonary nodule, left Severe sepsis Sleep apnea Vision loss of left eye Home Medications acetaminophen 1,000 mg PO BID PRN PRN 02/11/21 [History Last Taken 06/16/21] alprazolam 0.5 mg PO BID 02/11/21 [History Last Taken 06/17/21] atorvastatin 80 mg PO QHS 02/11/21 [History Last Taken 06/17/21] buspirone 7.5 mg PO TID 02/11/21 [History Last Taken 06/17/21] carvedilol 25 mg PO BID 02/11/21 [History Last Taken 06/17/21] clopidogrel 75 mg PO DAILY 02/11/21 [History Last Taken 06/17/21] finasteride 5 mg PO DAILY 02/11/21 [History Last Taken 06/17/21] fluoxetine 20 mg PO DAILY 02/11/21 [History Last Taken 06/17/21] fluoxetine 40 mg PO DAILY 02/11/21 [History Last Taken 06/17/21] insulin detemir U-100 28 unit SQ QHS 02/11/21 [History Last Taken 06/26/21] insulin lispro See Protocol SQ TIDCM 02/11/21 [History Last Taken 06/17/21] isosorbide mononitrate 30 mg PO DAILY 02/11/21 [History Last Taken 06/17/21] losartan 100 mg PO DAILY 02/11/21 [History Last Taken 06/17/21] nitroglycerin 0.4 mg SL Q5M PRN 02/11/21 [History Last Taken 02/08/21] pantoprazole 20 mg PO DAILY 02/11/21 [History Last Taken 06/17/21] trazodone 100 mg PO QHS 02/11/21 [History Last Taken 06/17/21] pregabalin [Lyrica] 75 mg PO BID 05/13/21 [History Last Taken 06/17/21] exenatide microspheres 2 mg SUBCUT SA 06/18/21 [History Last Taken 06/21/21] furosemide 40 mg PO DAILY #0 tab 06/28/21 [Rx Last Taken 06/17/21] nystatin [Nyamyc] 1 applic TOPICAL BID #0 g 06/28/21 [Rx Last Taken Unknown] Allergy/AdvReac Type Severity Reaction Status Date / Time allopurinol AdvReac Vomiting Verified 06/30/21 07:06 Influenza Virus Vaccines AdvReac Vomiting Verified 06/30/21 07:06 pneumococcal vaccine AdvReac Vomiting Verified 06/30/21 07:06 Family History Mother Diabetes Heart disease CHF Father Heart disease [place]/CAD Myocardial infarction Surgical History H/O lithotripsy History of ankle surgery History of coronary artery stent placement Hx of toe surgery S/P peripheral artery angioplasty with stent placement S/P thyroid surgery Social History household members: spouse housing: apartment Smoking Status: Never smoker alcohol intake: never substance use type: does not use ROS ROS ED Constitutional Constitutional ED: Reports chills and fever(s) Eyes Eyes: Denies blurry vision ENT ENT ED: Reports rhinorrhea and sore throat Cardiovascular Cardiovascular: Denies chest pain, palpitations or racing heartbeat Respiratory/Chest Respiratory/Chest: Reports cough, dyspnea and dyspnea on exertion Gastrointestinal Gastrointestinal: Denies abdominal pain, nausea or vomiting Genitourinary Genitourinary ED: Denies dysuria, hematuria or urinary frequency Musculoskeletal Musculoskeletal: Reports myalgias; Denies arthralgias or neck pain Integumentary Denies abscess or rash Neurologic Neurologic: Reports headache(s); Denies paresthesias or weakness Psychiatric Psychiatric: Reports anxiety; Denies depression, suicidal ideation or suicidal thoughts EXAM Physical Exam Const Vital Signs: 06/30/21 07:06 06/30/21 07:13 06/30/21 07:16 Temperature 101.6 F H 101.6 F H 101.6 F H Temperature Source Temporal Temporal Temporal Pulse Rate 114 H 111 H 110 H Respiratory Rate 26 H 18 30 H Respiratory Effort Labored Accessory Muscle Use Respiratory Depth Normal Respiratory Pattern Normal Blood Pressure 159/88 H 159/88 H 127/76 H Blood Pressure Mean 111 111 93 Pulse Ox 94 95 94 Oxygen Delivery Method Nasal Cannula Nasal Cannula Nasal Cannula Oxygen Flow Rate (L/min) 4 4 4 06/30/21 07:54 06/30/21 08:11 06/30/21 08:19 Temperature 100.2 F H 100.2 F H Temperature Source Temporal Temporal Pulse Rate 109 H 109 H Respiratory Rate 21 H 18 Respiratory Effort Respiratory Depth Respiratory Pattern Tachypnea Blood Pressure 124/87 H Blood Pressure Mean 99 Pulse Ox 94 93 Oxygen Delivery Method Nasal Cannula Nasal Cannula Oxygen Flow Rate (L/min) 4 4 06/30/21 09:20 Temperature 100.6 F H Temperature Source Oral Pulse Rate 105 H Respiratory Rate 18 Respiratory Effort Respiratory Depth Respiratory Pattern Blood Pressure 139/115 H Blood Pressure Mean 123 Pulse Ox 96 Oxygen Delivery Method Nasal Cannula Oxygen Flow Rate (L/min) 4 Positive obese General Appearance ED: NAD Nutritional Appearance: obese HEENT Reports moist mucous membranes atraumatic Eyes PERRL and EOMs intact bilaterally General Eye ED: Negative for pale conjunctiva or scleral icterus Resp Auscultation: wheezes expiratory wheezes and diminished lung sounds diffuse Cardio regular rate and regular rhythm GI non-tender and non-distended Palpation: soft Extremity normal to inspection General Extremety ED: Yes tenderness Neuro oriented x3 and CN's II-XII intact bilaterally Sensorium / Orientation: alert Psych mental status grossly normal Thought Process: normal thought process Skin Lesions: no lesions Rashes: no rashes MDM MDM MDM Narrative Medical decision making narrative: Patient presenting with hypoxia, shortness of breath, febrile illness. Patient has had his COVID-19 vaccines and his Covid testing in the ER is negative. Patient given Tylenol for fever and his temperature did return to 99.6. Patient is stable on 4 L of oxygen currently. He was initially having some wheezing on exam and was given Solu-Medrol breathing treatments and feels improved. I do not believe he needs BiPAP at this time. Patient's lab work shows a leukocytosis of 20,000 with a left shift. Creatinine is slightly improved over his previous creatinine. Lactic acid 1.6. LFTs are normal. EKG on my interpretation shows a sinus tachycardia with a ventricular rate of 110 bpm, MT interval 206 ms, QRS duration 88 ms, QTC 433 ms. Chest x-ray on my interpretation shows no acute cardiopulmonary process and the radiologist does agree. BNP is within normal limits. Patient will be treated with vancomycin and Zosyn as his primary complaint is respiratory and has wheezing with a fever. Since his urinalysis is normal I will treat him with vancomycin and Zosyn for hospital-acquired pneumonia given his recent admission. I did obtain an noncontrast CT scan for the hospitalist as well as an ABG which will be followed on the inpatient side. I did review the CT scan of the chest without contrast and it does appear to be a right lower/middle lobe infiltrate on his CT. ABG is pending. Patient transferred to the floor in stable condition. Impression: 1. Hospital-acquired pneumonia 2. Sepsis Lab Data Labs: Laboratory Results - last 24 hr 06/30/21 06/30/21 06/30/21 07:30 07:30 07:34 WBC RBC Hgb Hct MCV MCH MCHC RDW Std Deviation RDW Coeff of James Plt Count MPV Immature Gran % (Auto) Neut % (Auto) Lymph % (Auto) [place] % (Auto) Eos % (Auto) Baso % (Auto) Absolute Neuts (auto) Absolute Lymphs (auto) Nucleated RBC % PT INR APTT Sodium Potassium Chloride Carbon Dioxide Anion Gap BUN Creatinine Estim Creat Clear Calc Est GFR (MDRD) Af Amer Est GFR (MDRD) Non-Af BUN/Creatinine Ratio Glucose Lactic Acid Calcium Total Bilirubin AST ALT Alkaline Phosphatase Troponin I High Sens B-Natriuretic Peptide Total Protein Albumin Globulin Albumin/Globulin Ratio Urine Color Yellow Urine Clarity Clear Urine pH 5.0 Ur Specific [place] 1.015 Urine Protein 15 H Urine Glucose (UA) Normal Urine Ketones Negative Urine Occult Blood Negative Urine Nitrite Negative Urine Bilirubin Negative Urine Urobilinogen Normal Ur Leukocyte Esterase Negative Urine RBC 0 SEEN Urine WBC 0 SEEN Ur Squamous Epith Cells 0-5 SEEN Urine Bacteria 0 SEEN Urine Mucus 0 SEEN Urine Opiates Screen NEGATIVE Urine Methadone Screen NEGATIVE Ur Barbiturates Screen NEGATIVE Ur Phencyclidine Scrn NEGATIVE Ur Amphetamines Screen NEGATIVE U Methamphetamin-MDMA NEGATIVE U Benzodiazepines Scrn POSITIVE H Urine Cocaine Screen NEGATIVE U Cannabinoids Screen NEGATIVE Ur Drug Screen Comment COVID-19 (RAFIQ) Not Detected 06/30/21 06/30/21 06/30/21 07:45 07:45 07:45 WBC 20.7 H RBC 3.81 L Hgb 11.2 L Hct 36.0 L MCV 94.5 H MCH 29.4 MCHC 31.1 L RDW Std Deviation 44.5 H RDW Coeff of James 12.9 Plt Count 230 MPV 10.5 Immature Gran % (Auto) 0.700 Neut % (Auto) 90.4 H Lymph % (Auto) 5.1 L [place] % (Auto) 3.2 Eos % (Auto) 0.3 Baso % (Auto) 0.3 Absolute Neuts (auto) 18.7 H Absolute Lymphs (auto) 1.06 Nucleated RBC % 0 PT INR APTT Sodium 140 Potassium 4.7 Chloride 108 H Carbon Dioxide 29.0 Anion Gap 3 L BUN 25 H Creatinine 1.58 H Estim Creat Clear Calc 50.05 Est GFR (MDRD) Af Amer 57 L Est GFR (MDRD) Non-Af 47 L BUN/Creatinine Ratio 15.8 Glucose 140 H Lactic Acid 1.6 Calcium 8.9 Total Bilirubin 0.40 AST 17 ALT 24 Alkaline Phosphatase 112 Troponin I High Sens 10.4 B-Natriuretic Peptide Total Protein 7.5 Albumin 3.4 Globulin 4.1 Albumin/Globulin Ratio 0.8 L Urine Color Urine Clarity Urine pH Ur Specific [place] Urine Protein Urine Glucose (UA) Urine Ketones Urine Occult Blood Urine Nitrite Urine Bilirubin Urine Urobilinogen Ur Leukocyte Esterase Urine RBC Urine WBC Ur Squamous Epith Cells Urine Bacteria Urine Mucus Urine Opiates Screen Urine Methadone Screen Ur Barbiturates Screen Ur Phencyclidine Scrn Ur Amphetamines Screen U Methamphetamin-MDMA U Benzodiazepines Scrn Urine Cocaine Screen U Cannabinoids Screen Ur Drug Screen Comment COVID-19 (RAFIQ) 06/30/21 06/30/21 07:45 07:51 WBC RBC Hgb Hct MCV MCH MCHC RDW Std Deviation RDW Coeff of James Plt Count MPV Immature Gran % (Auto) Neut % (Auto) Lymph % (Auto) [place] % (Auto) Eos % (Auto) Baso % (Auto) Absolute Neuts (auto) Absolute Lymphs (auto) Nucleated RBC % PT 14.4 INR 1.2 APTT 24.9 Sodium Potassium Chloride Carbon Dioxide Anion Gap BUN Creatinine Estim Creat Clear Calc Est GFR (MDRD) Af Amer Est GFR (MDRD) Non-Af BUN/Creatinine Ratio Glucose Lactic Acid Calcium Total Bilirubin AST ALT Alkaline Phosphatase Troponin I High Sens B-Natriuretic Peptide 93.1 Total Protein Albumin Globulin Albumin/Globulin Ratio Urine Color Urine Clarity Urine pH Ur Specific [place] Urine Protein Urine Glucose (UA) Urine Ketones Urine Occult Blood Urine Nitrite Urine Bilirubin Urine Urobilinogen Ur Leukocyte Esterase Urine RBC Urine WBC Ur Squamous Epith Cells Urine Bacteria Urine Mucus Urine Opiates Screen Urine Methadone Screen Ur Barbiturates Screen Ur Phencyclidine Scrn Ur Amphetamines Screen U Methamphetamin-MDMA U Benzodiazepines Scrn Urine Cocaine Screen U Cannabinoids Screen Ur Drug Screen Comment COVID-19 (RAFIQ) Radiography Diagnostic Testing: Radiology Impression Chest X-Ray 06/30/21 08:05 IMPRESSION: Normal portable chest. Electronically Signed: Crow Hartley DO at 9:00 EDT Tel , Service support , Discharge Plan Disposition Disposition: Acute Care Hospital [facility] Discharge Date/Time: 06/30/21 10:42
[2021-06-30] MEDS: Acetaminophen 500 MG Tablet 1000 MG PO (07:49)
[2021-06-30] MEDS: MethylPREDNISolone 125 MG/2 ML Vial IV (07:50)
[2021-06-30] MEDS: Ipratropium/Albuterol Sulfate 3 ML AMPUL.NEB INHALATION ×2 (07:53→19:23)
[2021-06-30 07:54] LABS: Absolute Lymphocyte Count 1.06 X10^3/uL (0.83-4.51); Absolute Neutrophil Count 18.7 X10^3/uL (2.0-7.7); Basophil# 0.06 X10^3/uL; Basophil% 0.3 % (0-1); Eosinophil# 0.07 X10^3/uL; Eosinophils% 0.3 % (0-5); Hemoglobin 11.2 g/dL (13.0-16.5); Lymphocyte # 1.06 X10^3/ul (0.83-4.51); Lymphocyte % 5.1 % (19-41); Mean Corp Hgb Conc 31.1 g/dL (32-36); Mean Corpuscular Hgb 29.4 pg (27.0-32.0); Mean Corpuscular Volume 94.5 fL (80-94); Mean Platelet Vol. 10.5 fl (6.2-12.0); Monocyte# 0.66 X10^3/uL; Monocyte% 3.2 % (0-10); NRBC Flagged by Analyzer 0 % (0-5); Neutrophil % 90.4 % (47-70); Platelet Count 230 K/mm3 (150-450); RBC Distribution Width CV 12.9 % (11.6-14.6); RBC Distribution Width SD 44.5 fl (35.1-43.9); Red Blood Count 3.81 M/mm3 (4.6-6.2); White Blood Count 20.7 K/mm3 (4.4-11.0)
[2021-06-30] MEDS: Albuterol 2.5 MG/3 ML VIAL.NEB. INHALATION (07:54)
[2021-06-30 07:59] LABS: Bacteria 0 SEEN /hpf (None Seen); Mucous, Urine 0 SEEN /hpf (<or=2+); Red Blood Cells-Urine 0 SEEN /hpf (0-5); White Blood Cells 0 SEEN /hpf (0-5)
[2021-06-30 08:01] LABS: Color, Urine Yellow (Yellow); Glucose, Dipstick Normal (Normal); Ketone-Dipstick Negative (Negative); Leukocyte Esterase-Dipstick Negative /ul (Negative); Nitrite-Dipstick Negative (Negative); Occult Blood-Urine Negative /ul (Negative); Protein-Dipstick 15 mg/dl (Negative); Specific Gravity, Urine 1.015 (1.002-1.030); Urine Bilirubin Dipstick Negative (Negative); Urine Clarity Clear (Clear); Urine Urobilinogen Normal (Normal)
--- NOTE | 2021-06-30 08:05 | RAD_ITS ---
EXAM DESCRIPTION: PORTABLE AP CHEST CLINICAL HISTORY: 61 years Male, fever fever COMPARISON: Previous chest obtained on 06/27/2021 FINDINGS: The thorax is intact. The heart and mediastinum appear to be within normal limits. The patient''s taken a somewhat poor inspiratory effort with mild perihilar congestion''s and mild eventration of the hemidiaphragms bilaterally. No pneumonic infiltrates or pulmonary edema is seen. No pleural effusions are identified. RAD/Chest 1 View (Portable) IMPRESSION: Normal portable chest. Electronically Signed: Crow Hartley DO at 9:00 EDT Tel , Service support ,
[2021-06-30 08:12] LABS: ALB/GLOB Ratio 0.8 RATIO (0.9-2.4); AST(SGOT) 17 U/L (15-37); Alanine Aminotransfer ALT/SGPT 24 U/L (16-61); Albumin, Serum 3.4 g/dL (3.2-5.0); Alkaline Phosphatase 112 U/L (45-117); Anion Gap 3 (5-15); BUN 25 mg/dL (7-18); BUN/Creat Ratio 15.8 RATIO (10-20); Calcium,Total 8.9 mg/dL (8.5-10.1); Chloride 108 mmol/L (98-107); Creatinine, Serum 1.58 mg/dL (0.70-1.30); EST Glomerular Filtration Rate 47 mL/min (>60); Est Glom Filt Rate - Afr Amer 57 mL/min (>60); Estimated Creatinine Clearance 50.05 ml/min; Globulin 4.1 g/dL (2.2-4.2); Glucose 140 mg/dL (74-106); Potassium 4.7 mmol/L (3.5-5.1); Protein, Total 7.5 g/dL (6.4-8.2); Sodium Level 140 mmol/L (136-145); Troponin-I HS 10.4 pg/mL (3.0-78.5)
--- NOTE | 2021-06-30 08:12 | ED.RN ---
PT REQUESTS THAT THIS RN CALL OLVIN STEARNS. PT GIVES VERBAL PERMISSION TO DISCUSS PLAN OF CARE WITH JINNY.
[2021-06-30 08:20] LABS: Lactic Acid 1.6 mmol/L (0.4-1.9)
[2021-06-30 08:22] LABS: Squamous Epithelial Cells - UA 0-5 SEEN /hpf (0-5)
[2021-06-30 08:34] LABS: BNP,B-Type NATRIURETIC PEPTIDE 93.1 pg/mL (0-100)
[2021-06-30 08:59] LABS: International Normalized Ratio 1.2; Prothrombin Time (Protime)PT. 14.4 SECONDS (11.7-14.9)
[2021-06-30 09:03] LABS: Partial Thromboplast Time 24.9 Seconds (24.1-36.2)
--- NOTE | 2021-06-30 09:30 | NURSING ---
DR LANDIN FOR DR GARZA
--- NOTE | 2021-06-30 09:31 | CT_ITS ---
STUDY: CT CHEST WITHOUT CONTRAST REASON FOR EXAM: Male, 61 years old. hypoxia RADIATION DOSAGE (If Supplied By Facility): CTDIvol = ( 20.10 ) mGy, DLP = ( 718.10 ) mGycm TECHNIQUE: Transaxial imaging was performed without the administration of intravenous contrast material. Individualized dose optimization techniques were used for this CT. COMPARISON: Chest x-ray earlier today, CT 02/16/2021 FINDINGS: Moderate bilateral gynecomastia. Alveolar density in the posterior right upper lobe and the right lower lobe consistent with pneumonia. There is no demonstrated pleural abnormality. Normal heart and pericardium. There are calcifications of the coronary arteries. Normal mediastinum. Normal hilar regions. Normal unenhanced pulmonary arteries. Normal aorta arch and descending thoracic aorta. Normal osseous structures. There is no demonstrated abnormality of the visualized upper abdomen. CT/Chest without Contrast IMPRESSION: Right upper lobe and right lower lobe pneumonia. Electronically Signed: Deuce Floyd MD at 10:59 EDT Tel , Service support ,
--- NOTE | 2021-06-30 09:40 | NURSING ---
PCU MUSHTAQ COPD EXAC, HYPOXIA, LEUKOCYTOSIS
[2021-06-30 09:57] LABS: Amphetamine Urine VISTA NEGATIVE (<1000 ng/mL); Barbiturate Urine VISTA NEGATIVE (< 200 ng/mL); Benzodiazepine Urine VISTA POSITIVE (< 200 ng/mL); Cocaine Urine VISTA NEGATIVE (< 300 ng/mL); Ecstacy Urine VISTA NEGATIVE (< 500 ng/mL); Methadone Urine VISTA NEGATIVE (< 300 ng/mL); PCP Urine VISTA NEGATIVE (< 25 ng/mL); THC Urine VISTA NEGATIVE (< 50 ng/mL); Vista UDS pH Range 5
--- NOTE | 2021-06-30 10:40 | PCM.HP.STD ---
HPI - General General Date of Admission: 06/30/21 HPI Narrative REA HANNA, is a 61 M who was just discharged on 06/28 was brought by EMS for shortness of breath, fever with chills; temperature 101.7 ?F with mild cough. As per his , his temperature was 99.6 Fahrenheit yesterday. In the morning, he was sleepy and rolled from the bed on the floor but no major injury. He has history of bilateral pneumonia about a month ago and since then he has mild cough. Patient also on 2 to 3 L of baseline home oxygen but EMS found pulse ox 80%. In ED, T 101.6 Fahrenheit, tachycardia, tachypnea and pulse ox 94% on 4 L of oxygen but normal lactic acid. Portable chest x-ray reported normal but CT chest individually reviewed and shows right lower lobe consolidation along with left lung base infiltrate. Patient is further admitted with diagnosis of pneumonia The patient was admitted between 06/27?06/28 for hypotension. [facility] Medical History Amputation of one or more toes Anxiety CAD (coronary artery disease) Chest pain Congestive heart failure (CHF) COPD (chronic obstructive pulmonary disease) CPAP (continuous positive airway pressure) dependence Depression Diabetes GERD (gastroesophageal reflux disease) Hypertension Kidney stones Kidney stones Migraines Myocardial infarct Non-smoker On home oxygen therapy PAD (peripheral artery disease) Pulmonary nodule, left Severe sepsis Sleep apnea Vision loss of left eye Home Medications acetaminophen 1,000 mg PO BID PRN PRN 02/11/21 [History Last Taken 06/16/21] alprazolam 0.5 mg PO BID 02/11/21 [History Last Taken 06/17/21] atorvastatin 80 mg PO QHS 02/11/21 [History Last Taken 06/17/21] buspirone 7.5 mg PO TID 02/11/21 [History Last Taken 06/17/21] carvedilol 25 mg PO BID 02/11/21 [History Last Taken 06/17/21] clopidogrel 75 mg PO DAILY 02/11/21 [History Last Taken 06/17/21] finasteride 5 mg PO DAILY 02/11/21 [History Last Taken 06/17/21] fluoxetine 20 mg PO DAILY 02/11/21 [History Last Taken 06/17/21] fluoxetine 40 mg PO DAILY 02/11/21 [History Last Taken 06/17/21] insulin detemir U-100 28 unit SQ QHS 02/11/21 [History Last Taken 06/26/21] insulin lispro See Protocol SQ TIDCM 02/11/21 [History Last Taken 06/17/21] isosorbide mononitrate 30 mg PO DAILY 02/11/21 [History Last Taken 06/17/21] losartan 100 mg PO DAILY 02/11/21 [History Last Taken 06/17/21] nitroglycerin 0.4 mg SL Q5M PRN 02/11/21 [History Last Taken 02/08/21] pantoprazole 20 mg PO DAILY 02/11/21 [History Last Taken 06/17/21] trazodone 100 mg PO QHS 02/11/21 [History Last Taken 06/17/21] pregabalin [Lyrica] 75 mg PO BID 05/13/21 [History Last Taken 06/17/21] exenatide microspheres 2 mg SUBCUT SA 06/18/21 [History Last Taken 06/21/21] furosemide 40 mg PO DAILY #0 tab 06/28/21 [Rx Last Taken 06/17/21] nystatin [Nyamyc] 1 applic TOPICAL BID #0 g 06/28/21 [Rx Last Taken Unknown] Allergy/AdvReac Type Severity Reaction Status Date / Time allopurinol AdvReac Vomiting Verified 06/30/21 07:06 Influenza Virus Vaccines AdvReac Vomiting Verified 06/30/21 07:06 pneumococcal vaccine AdvReac Vomiting Verified 06/30/21 07:06 Family History Mother Diabetes Heart disease CHF Father Heart disease MO/CAD Myocardial infarction Surgical History H/O lithotripsy History of ankle surgery History of coronary artery stent placement Hx of toe surgery S/P peripheral artery angioplasty with stent placement S/P thyroid surgery Social History household members: spouse housing: apartment Smoking Status: Never smoker alcohol intake: never substance use type: does not use ROS ROS Narrative Constitutional: Fever with chills. Mild shortness of breath reports fatigue and weakness HEENT: Reports systems reviewed and no addt'l complaints, except as documented Respiratory/Chest: Cough for 1 month. Shortness of breath at rest and on exertion. Born with lung lobar aplasia. Gastrointestinal: Denies coffee ground emesis, hematemesis or vomiting Genitourinary: Mild chronic burning pain at penis, for long time Musculoskeletal: Reports joint pain and limited range of motion Neurologic: Denies seizure-like activity skin: Rash, itching on both groins and inguinal region. Endocrinology: Reports systems reviewed and no addt'l complaints, except as documented Hematologic/Lymphatic: Reports systems reviewed and no addt'l complaints, except as documented Rest 12 ROS are negative except as mentioned in HPI Vital Signs Vital Signs Vital Signs: 06/30/21 07:06 06/30/21 07:13 06/30/21 07:16 Temperature 101.6 F H 101.6 F H 101.6 F H Temperature Source Temporal Temporal Temporal Pulse Rate 114 H 111 H 110 H Respiratory Rate 26 H 18 30 H Respiratory Effort Labored Accessory Muscle Use Respiratory Depth Normal Respiratory Pattern Normal Blood Pressure 159/88 H 159/88 H 127/76 H Blood Pressure Mean 111 111 93 Pulse Ox 94 95 94 Oxygen Delivery Method Nasal Cannula Nasal Cannula Nasal Cannula Oxygen Flow Rate (L/min) 4 4 4 06/30/21 07:54 06/30/21 08:11 06/30/21 08:19 Temperature 100.2 F H 100.2 F H Temperature Source Temporal Temporal Pulse Rate 109 H 109 H Respiratory Rate 21 H 18 Respiratory Effort Respiratory Depth Respiratory Pattern Tachypnea Blood Pressure 124/87 H Blood Pressure Mean 99 Pulse Ox 94 93 Oxygen Delivery Method Nasal Cannula Nasal Cannula Oxygen Flow Rate (L/min) 4 4 06/30/21 09:20 06/30/21 10:34 Temperature 100.6 F H 99.6 F H Temperature Source Oral Oral Pulse Rate 105 H 101 H Respiratory Rate 18 18 Respiratory Effort Respiratory Depth Respiratory Pattern Blood Pressure 139/115 H 134/75 H Blood Pressure Mean 123 94 Pulse Ox 96 97 Oxygen Delivery Method Nasal Cannula Nasal Cannula Oxygen Flow Rate (L/min) 4 2 Weight Weight: 272 lb 4.334 oz Body Mass Index (BMI) 39.0 Physical Exam Narrative General: Alert, Oriented x3, Cooperative HEENT: Atraumatic, PERRLA, EOMI, Normocephalic Oral: No Gingival or Mucosal Lesions/ Ulcerations Neck: Supple, No JVD, Negative Carotid Bruits Lungs: Dyspnea at rest. Air entry diminished on both lower lungs, more on right lung base. Bilateral lung bases crepitations. Hypoxia and tachypnea Cardiovascular: Sinus tachycardia, PVCs, normal S1, Normal S2, No murmurs Abdomen: Bowel Sounds Present, Soft, Non Tender, Non-Distended : No penile discharge. Urinary incontinence with wet perineal region. No suprapubic tenderness. Extremities: Mild bilateral ankle edema, Capillary Refill Less than 3 Seconds Skin: Erythematous rash over both groin and inguinal region with excoriation. Musculoskeletal: Right metatarsal foot amputation. ROM restricted. Uses walker or motorized scooter Neurological: Cranial nerves II-XII grossly intact, weakness of right lower extremity more than left lower extremity at major joints. DTR 2+/4 Psych/Mental Status: Normal Affect, Appropriate. Results Lab / Micro Data Result Diagrams: 06/30/21 07:45 06/30/21 07:45 Labs: Laboratory Results - last 24 hr 06/30/21 07:30: Urine Color Yellow, Urine Clarity Clear, Urine pH 5.0, Ur Specific [place] 1.015, Urine Protein 15 H, Urine Glucose (UA) Normal, Urine Ketones Negative, Urine Occult Blood Negative, Urine Nitrite Negative, Urine Bilirubin Negative, Urine Urobilinogen Normal, Ur Leukocyte Esterase Negative, Urine RBC 0 SEEN, Urine WBC 0 SEEN, Ur Squamous Epith Cells 0-5 SEEN, Urine Bacteria 0 SEEN, Urine Mucus 0 SEEN 06/30/21 07:30: Urine Opiates Screen NEGATIVE, Urine Methadone Screen NEGATIVE, Ur Barbiturates Screen NEGATIVE, Ur Phencyclidine Scrn NEGATIVE, Ur Amphetamines Screen NEGATIVE, U Methamphetamin-MDMA NEGATIVE, U Benzodiazepines Scrn POSITIVE H, Urine Cocaine Screen NEGATIVE, U Cannabinoids Screen NEGATIVE, Ur Drug Screen Comment 06/30/21 07:34: COVID-19 (RAFIQ) Not Detected 06/30/21 07:45: WBC 20.7 H, RBC 3.81 L, Hgb 11.2 L, Hct 36.0 L, MCV 94.5 H, MCH 29.4, MCHC 31.1 L, RDW Std Deviation 44.5 H, RDW Coeff of James 12.9, Plt Count 230, MPV 10.5, Immature Gran % (Auto) 0.700, Neut % (Auto) 90.4 H, Lymph % (Auto) 5.1 L, [place] % (Auto) 3.2, Eos % (Auto) 0.3, Baso % (Auto) 0.3, Absolute Neuts (auto) 18.7 H, Absolute Lymphs (auto) 1.06, Nucleated RBC % 0 06/30/21 07:45: Sodium 140, Potassium 4.7, Chloride 108 H, Carbon Dioxide 29.0, Anion Gap 3 L, BUN 25 H, Creatinine 1.58 H, Estim Creat Clear Calc 50.05, Est GFR (MDRD) Af Amer 57 L, Est GFR (MDRD) Non-Af 47 L, BUN/Creatinine Ratio 15.8, Glucose 140 H, Calcium 8.9, Total Bilirubin 0.40, AST 17, ALT 24, Alkaline Phosphatase 112, Troponin I High Sens 10.4, Total Protein 7.5, Albumin 3.4, Globulin 4.1, Albumin/Globulin Ratio 0.8 L 06/30/21 07:45: Lactic Acid 1.6 06/30/21 07:45: B-Natriuretic Peptide 93.1 06/30/21 07:51: PT 14.4, INR 1.2, APTT 24.9 Radiology Impression Chest X-Ray 06/30/21 08:05 IMPRESSION: Normal portable chest. Electronically Signed: Crow Hartley DO at 9:00 EDT Tel , Service support , Assessment & Plan Assessment/Plan (1) Pneumonia: QUALIFIERS: Pneumonia type: due to unspecified organism Laterality: right Lung location: lower lobe of lung Qualified Code(s): J18.9 - Pneumonia, unspecified organism PLAN: REA HANNA, is a 61 M who was just discharged on 06/28 was brought by EMS for shortness of breath, fever with chills; temperature 101.7 ?F with mild cough and CT chest consistent with a right upper and lower lobe pneumonia 1. SIRS (tachycardia, tachypnea, fever with leukocytosis, with neutrophilia) with sepsis due to right multifocal pneumonia with chronic hypoxic respiratory failure: Patient is being admitted in PCU. Lactic acid normal. Blood pressure is normal. Started on IV vancomycin and Zosyn. Blood cultures x2, urine culture and urinary antigens ordered. Bronchodilator every 6 hourly. Incentive spirometry and chest physiotherapy. Respiratory panel ordered. Covid 19 rapid antigen negative and patient had Covid vaccine. ID consult as patient had pneumonia about a month ago probably nonresolving pneumonia and patient has some congenital dysplastic lung exact lesion unclear. BiPAP ordered as needed for night for shortness of breath. Is based therapy evaluation. 2. Recent CELESTE with hypotension, on chronic CKD stage IIIa: Continue baseline IV fluid. Monitor kidney function electrolytes. 3. Heart failure of unclear type and etiology: Patient on Plavix, statin, isosorbide. Hold spironolactone, losartan and Lasix. 4. Coronary artery disease, PAD: Patient had cardiac stent and bilateral lower extremity, 2 stents on each side. Right foot Symes amputation 5. Diabetes mellitus type 2 with peripheral neuropathy: Glucose is controlled. Accu-Cheks before meals and at bedtime and patient on Lantus. Continue Lyrica. 6. Other comorbidities include hypertension, anxiety and depression, chronic normocytic anemia, obesity, GERD, obstructive sleep apnea: Low functional capacity. PT and OT ordered. Home medication reconciliation done VTE prophylaxis: On Lovenox 40 mg subcu day Living will/advanced directive/end of life care: Patient does have living will or advanced directive. After discussion of benefits/risks procedures involved with full code, DNR CC arrest and DNR CC, the patient and his fianc?e at bedside opted for full code. Patient does want artificial life support including intubation, tube feed, ventilator and/chest compression, central venous catheter, vasopressor and DC shock if needed Total time spent in [id number] encounter in discussion of advanced directive 16 minutes. Laboratory Results 06/30/21 07:30: Urine Color Yellow, Urine Clarity Clear, Urine pH 5.0, Ur Specific [place] 1.015, Urine Protein 15 H, Urine Glucose (UA) Normal, Urine Ketones Negative, Urine Occult Blood Negative, Urine Nitrite Negative, Urine Bilirubin Negative, Urine Urobilinogen Normal, Ur Leukocyte Esterase Negative, Urine RBC 0 SEEN, Urine WBC 0 SEEN, Ur Squamous Epith Cells 0-5 SEEN, Urine Bacteria 0 SEEN, Urine Mucus 0 SEEN 06/30/21 07:30: Urine Opiates Screen NEGATIVE, Urine Methadone Screen NEGATIVE, Ur Barbiturates Screen NEGATIVE, Ur Phencyclidine Scrn NEGATIVE, Ur Amphetamines Screen NEGATIVE, U Methamphetamin-MDMA NEGATIVE, U Benzodiazepines Scrn POSITIVE H, Urine Cocaine Screen NEGATIVE, U Cannabinoids Screen NEGATIVE, Ur Drug Screen Comment 06/30/21 07:34: COVID-19 (RAFIQ) Not Detected 06/30/21 07:45: WBC 20.7 H, RBC 3.81 L, Hgb 11.2 L, Hct 36.0 L, MCV 94.5 H, MCH 29.4, MCHC 31.1 L, RDW Std Deviation 44.5 H, RDW Coeff of James 12.9, Plt Count 230, MPV 10.5, Immature Gran % (Auto) 0.700, Neut % (Auto) 90.4 H, Lymph % (Auto) 5.1 L, [place] % (Auto) 3.2, Eos % (Auto) 0.3, Baso % (Auto) 0.3, Absolute Neuts (auto) 18.7 H, Absolute Lymphs (auto) 1.06, Nucleated RBC % 0 06/30/21 07:45: Sodium 140, Potassium 4.7, Chloride 108 H, Carbon Dioxide 29.0, Anion Gap 3 L, BUN 25 H, Creatinine 1.58 H, Estim Creat Clear Calc 50.05, Est GFR (MDRD) Af Amer 57 L, Est GFR (MDRD) Non-Af 47 L, BUN/Creatinine Ratio 15.8, Glucose 140 H, Calcium 8.9, Total Bilirubin 0.40, AST 17, ALT 24, Alkaline Phosphatase 112, Troponin I High Sens 10.4, Total Protein 7.5, Albumin 3.4, Globulin 4.1, Albumin/Globulin Ratio 0.8 L 06/30/21 07:45: Lactic Acid 1.6 06/30/21 07:45: B-Natriuretic Peptide 93.1 06/30/21 07:45: Procalcitonin Pending 06/30/21 07:51: PT 14.4, INR 1.2, APTT 24.9 06/30/21 10:41: Specimen Type ART, Sample Site L Radial, pH 7.40, Bicarbonate Actual 25.8, Total CO2 27, Base Excess 1, O2 Saturation 98, ABG pCO2 41.9, ABG pO2 97, Gabe Test Positive, O2 Delivery Device Cannula, Liter Flow 4.0 Clinical Impression(s) from Imaging Studies Chest X-Ray 06/30/21 08:05 IMPRESSION: Normal portable chest. Electronically Signed: Crow Hartley DO at 9:00 EDT Tel , Service support , Chest CT 06/30/21 09:31 IMPRESSION: Right upper lobe and right lower lobe pneumonia. Charges/Coding Visit Charges Inpatient E&M: 23590 Init Hosp L3 Procedures Hospitalists Procedures: 44235 Advncd Care Plan 30 Min
[2021-06-30 10:46] LABS: Allen Test Positive; Base Excess 1 mmol/L (-2 to +2); Bicarbonate 25.8 mmol/L (22-26); Blood Gas Specimen Type ART; O2 Delivery Device Cannula; PO2 97 mmHG (75-100); SITE L Radial; SO2 98 % (95-99); Total Carbon Dioxide 27 mmol/L; pCO2 41.9 mmHg (35-45)
[2021-06-30 11:10] LABS: Procalcitonin 0.17 ng/mL (0.00-0.09)
--- NOTE | 2021-06-30 11:43 | CASEMGMT ---
Call to Jessica at [facility] and she states pt is still active with them for SN, PT/OT. Yessica JENKINS CM
[2021-06-30] MEDS: guaiFENesin 1,200 MG Tablet 1200 MG PO ×2 (12:49→22:06)
[2021-06-30] MEDS: Enoxaparin 40 MG/0.4 ML Syringe SC (12:49)
[2021-06-30] MEDS: Insulin Lispro 100 UNIT/ML INSULN.PEN SC ×3 (12:52→22:06)
--- NOTE | 2021-06-30 13:01 | PCM.RX.CS ---
Consult Pharmacy has been consulted to manage selected antiobiotic: Vancomycin Type of Consult: New start Suspected Infection: Pneumonia Labs: Sodium 140 mmol/L (136-145) 06/30/21 07:45 Potassium 4.7 mmol/L (3.5-5.1) 06/30/21 07:45 Chloride 108 mmol/L (98-107) H 06/30/21 07:45 Carbon Dioxide 29.0 mmol/L (21.0-32.0) 06/30/21 07:45 Anion Gap 3 (5-15) L 06/30/21 07:45 BUN 25 mg/dL (7-18) H 06/30/21 07:45 Creatinine 1.58 mg/dL (0.70-1.30) H 06/30/21 07:45 Est GFR (MDRD) Af Amer 57 mL/min (>60) L 06/30/21 07:45 Est GFR (MDRD) Non-Af 47 mL/min (>60) L 06/30/21 07:45 BUN/Creatinine Ratio 15.8 RATIO (10-20) 06/30/21 07:45 Glucose 140 mg/dL (74-106) H 06/30/21 07:45 Microbiology: Microbiology 06/30/21 07:30 Urine, Clean Catch Legionella Antigen - Final 06/30/21 07:30 Urine, Clean Catch Streptococcus pneumoniae Antigen (M - Final Estimated Creatinine Clearance: 63.9ml/min Goal Trough: 15-20 mcg/mL Pharmacy Plan for Drug Dosing: NEW START IV VANCOMYCIN Consulting Physician: Danie Indication: Pneumonia Goal Trough: 15-20 SrCr: 1.58 CrCl: 63.9 (using an adjusted body weight of 93kg) Comments: pt received an ER dose of Vancomycin 1750mg on 06/30/21 at 1118 Vancomcyin Dose: based on pts weight and renal function recommend an initial dose of 1500mg q12h. Starting 06/30/21 at 2300. Trough before the 4th total dose Pending Level: 07/01/21 at 2230 Pharmacy Service will continue to monitor and adjust dosing as required. Follow-Up Labs: Trough Vancomycin - 07/01/21 at 2230
[2021-06-30 13:31] LABS: Bedside Glucose 292 mg/dL (70-110)
--- NOTE | 2021-06-30 14:32 | EX.PCM.CONCC ---
Assessment & Plan Assessment/Plan (1) Pneumonia: QUALIFIERS: Pneumonia type: due to unspecified organism Laterality: right Lung location: lower lobe of lung Qualified Code(s): J18.9 - Pneumonia, unspecified organism (2) CELESTE (acute kidney injury): (3) Bronchiectasis with (acute) exacerbation: PLAN: RECOMMENDATIONS: 1. Wean supplemental oxygen to maintain saturations at or above 90%. 2. Continue broad-spectrum antimicrobials. 3. Encourage incentive spirometer and Acapella use. Mobilize patient as tolerated. Add Pep therapy 4. Obtain sniff test 5. Attempt sputum culture IMPRESSIONS: 1. Severe sepsis Clinical and radiographic concern for underlying pulmonary infectious etiology. The patient was adequately volume resuscitated. Antimicrobials will be continued pending further infectious work-up. The patient remains hemodynamically stable. Patient with recurrent previous pneumonias, but has bronchiectasis again on recent CT scan. Continue aggressive pulmonary toileting. Differential would include chronic aspiration versus bronchiectasis. Will obtain a sniff test for evaluation of diaphragmatic paralysis. 2. Acute hypoxemic respiratory insufficiency secondary to bronchiectasis exacerbation Patient with bronchiectasis on CT scan and elevation of the right hemidiaphragm. Patient appears to be responding to Acapella therapy. We'll hold off on vest therapy. Other differential would include congestive heart failure as patient does have a bicuspid mitral valve with murmur on exam. Clinical suspicion for bronchiectasis exacerbation versus mucous plugging. Patient states he has been using pulmonary toileting devices at home. Recent PFT shows restriction, likely secondary to elevated right hemidiaphragm. Patient did not have significant scooping on flow volume loop to suspect obstruction, but did have air trapping noted. Air trapping may be secondary to paralysis of the right hemidiaphragm. 3. Acute on chronic kidney disease Resolved with fluids. Most likely prerenal in etiology. Creatinine improved with volume expansion. Continue to monitor urine output for now. No current indication for renal replacement therapy. 4. History of coronary artery disease/diabetes mellitus/hypertension/anxiety/depression Complicates care, management, recovery and prognosis. Continue home medications as indicated. HPI Consult Data Date of Consult: 06/30/21 HPI Narrative HPI Narrative: REA HANNA is a 61 M, with past medical history listed below and well-known to me from previous admissions, who presents to [facility] on 06/30/2021 secondary to fever, hypoxia and worsening shortness of breath. Patient had recently been hospitalized as an observation secondary to reported acute kidney injury that was thought to be secondary to dehydration. Patient states that he started to have chills, body aches and dyspnea shortly after discharge from the hospital. Patient did not have any change in taste or smell, but reports he had already been immunized for Covid. Patient is reportedly on 2 to 3 L at all times at home, but reportedly EMS had noted that he was in the 80s on his home oxygen setting. End-tidal CO2 was reportedly 28. In the ER, patient was noted to be febrile at 101.6 ?F, tachycardic at 114 bpm and 94% on 4 L. Patient was given Tylenol with good response. Patient was also given Solu-Medrol. Patient did not require BiPAP therapy. EKG was relatively unremarkable except for sinus tachycardia and chest x-ray showed no acute infiltrate. Laboratory work-up showed a negative UA and COVID-19. Patient did test positive for benzodiazepines. Patient had a leukocytosis of 20.7 and hemoglobin of 11.2. Creatinine was slightly elevated at 1.58, but lactate was normal at 1.6. LFTs were unremarkable. Patient's bicarbonate was elevated at 29, but BNP and coagulation studies were within normal limits. Since being admitted to the hospital, patient has remained hemodynamically stable. Patient is denying any chest pain, but states his exercise tolerance is severely limited. Patient has been using his scooter to help get around the home. Patient does not have any hemoptysis, but does report coughing up mucous plugs intermittently. Patient states he has been using his Acapella twice daily. Patient is not reporting any sinus issues. Patient did request a pulmonary consult. Patient has been placed on HCAP antibiotics, but states he feels subjectively unchanged compared to previous. Since my last evaluation of the patient, patient has had a pulmonary function test showing a mild restrictive ventilatory defect. Patient also had some air trapping noted. Patient is to have a walking oximetry tomorrow, but states his oxygen saturations have been doing well prior to calling EMS. Review of systems otherwise negative from a constitutional, HEENT, respiratory, cardiovascular, GI, genitourinary, musculoskeletal, skin, neurologic, psychiatric and hematologic system unless stated above. [facility] Medical History Amputation of one or more toes Anxiety CAD (coronary artery disease) Chest pain Congestive heart failure (CHF) COPD (chronic obstructive pulmonary disease) CPAP (continuous positive airway pressure) dependence Depression Diabetes GERD (gastroesophageal reflux disease) Hypertension Kidney stones Kidney stones Migraines Myocardial infarct Non-smoker On home oxygen therapy PAD (peripheral artery disease) Pulmonary nodule, left Severe sepsis Sleep apnea Vision loss of left eye Home Medications acetaminophen 1,000 mg PO BID PRN PRN 02/11/21 [History Last Taken 06/16/21] alprazolam 0.5 mg PO BID 02/11/21 [History Last Taken 06/17/21] atorvastatin 80 mg PO QHS 02/11/21 [History Last Taken 06/17/21] buspirone 7.5 mg PO TID 02/11/21 [History Last Taken 06/17/21] carvedilol 25 mg PO BID 02/11/21 [History Last Taken 06/17/21] clopidogrel 75 mg PO DAILY 02/11/21 [History Last Taken 06/17/21] finasteride 5 mg PO DAILY 02/11/21 [History Last Taken 06/17/21] fluoxetine 20 mg PO DAILY 02/11/21 [History Last Taken 06/17/21] fluoxetine 40 mg PO DAILY 02/11/21 [History Last Taken 06/17/21] insulin detemir U-100 28 unit SQ QHS 02/11/21 [History Last Taken 06/26/21] insulin lispro See Protocol SQ TIDCM 02/11/21 [History Last Taken 06/17/21] isosorbide mononitrate 30 mg PO DAILY 02/11/21 [History Last Taken 06/17/21] losartan 100 mg PO DAILY 02/11/21 [History Last Taken 06/17/21] nitroglycerin 0.4 mg SL Q5M PRN 02/11/21 [History Last Taken 02/08/21] pantoprazole 20 mg PO DAILY 02/11/21 [History Last Taken 06/17/21] trazodone 100 mg PO QHS 02/11/21 [History Last Taken 06/17/21] pregabalin [Lyrica] 75 mg PO BID 05/13/21 [History Last Taken 06/17/21] exenatide microspheres 2 mg SUBCUT SA 06/18/21 [History Last Taken 06/21/21] furosemide 40 mg PO DAILY #0 tab 06/28/21 [Rx Last Taken 06/17/21] nystatin [Nyamyc] 1 applic TOPICAL BID #0 g 06/28/21 [Rx Last Taken Unknown] Allergy/AdvReac Type Severity Reaction Status Date / Time allopurinol AdvReac Vomiting Verified 06/30/21 07:06 Influenza Virus Vaccines AdvReac Vomiting Verified 06/30/21 07:06 pneumococcal vaccine AdvReac Vomiting Verified 06/30/21 07:06 Family History Mother Diabetes Heart disease CHF Father Heart disease [place]/CAD Myocardial infarction Surgical History H/O lithotripsy History of ankle surgery History of coronary artery stent placement Hx of toe surgery S/P peripheral artery angioplasty with stent placement S/P thyroid surgery Social History household members: spouse housing: apartment Smoking Status: Never smoker alcohol intake: never substance use type: does not use ROS ROS Narrative See HPI Physical Exam Const alert, oriented x3 and no apparent distress Constitutional Narrative: Appears older than stated age General Appearance: anxious; Negative for in distress Nutritional Appearance: obese HEENT normocephalic, head/scalp atraumatic, moist oral mucous membranes and oropharynx normal Eyes conjunctivae normal and no scleral icterus Neck full ROM and No nuchal rigidity Lymph Lymphatic: no lymphadenopathy noted Chest inspection of chest normal Chest Narrative: Slight decreased expansion of the right chest noted Chest: Negative for symmetrical chest wall rise Resp Auscultation: rhonchi right lower and diminished lung sounds; Negative for rales or wheezes Cardio regular rate, regular rhythm, S1 normal heart sound, S2 normal heart sound, no murmurs, no rub and no gallops GI normal to inspection, nondistended, normoactive bowel sounds no CVA tenderness Extremity General Extremity: edema bilateral (Trace bilateral lower) Skin no rashes or lesions noted Neuro oriented x3, CN's II-XII intact bilaterally and no focal motor deficits Psych Mood & Affect: anxious Lab / Micro Data Result Diagrams: 06/30/21 07:45 08/02/21 07:45 Labs: Laboratory Results - last 24 hr 06/30/21 07:30: Urine Color Yellow, Urine Clarity Clear, Urine pH 5.0, Ur Specific [place] 1.015, Urine Protein 15 H, Urine Glucose (UA) Normal, Urine Ketones Negative, Urine Occult Blood Negative, Urine Nitrite Negative, Urine Bilirubin Negative, Urine Urobilinogen Normal, Ur Leukocyte Esterase Negative, Urine RBC 0 SEEN, Urine WBC 0 SEEN, Ur Squamous Epith Cells 0-5 SEEN, Urine Bacteria 0 SEEN, Urine Mucus 0 SEEN 06/30/21 07:30: Urine Opiates Screen NEGATIVE, Urine Methadone Screen NEGATIVE, Ur Barbiturates Screen NEGATIVE, Ur Phencyclidine Scrn NEGATIVE, Ur Amphetamines Screen NEGATIVE, U Methamphetamin-MDMA NEGATIVE, U Benzodiazepines Scrn POSITIVE H, Urine Cocaine Screen NEGATIVE, U Cannabinoids Screen NEGATIVE, Ur Drug Screen Comment 06/30/21 07:34: COVID-19 (RAFIQ) Not Detected 06/30/21 07:45: WBC 20.7 H, RBC 3.81 L, Hgb 11.2 L, Hct 36.0 L, MCV 94.5 H, MCH 29.4, MCHC 31.1 L, RDW Std Deviation 44.5 H, RDW Coeff of James 12.9, Plt Count 230, MPV 10.5, Immature Gran % (Auto) 0.700, Neut % (Auto) 90.4 H, Lymph % (Auto) 5.1 L, [place] % (Auto) 3.2, Eos % (Auto) 0.3, Baso % (Auto) 0.3, Absolute Neuts (auto) 18.7 H, Absolute Lymphs (auto) 1.06, Nucleated RBC % 0 06/30/21 07:45: Sodium 140, Potassium 4.7, Chloride 108 H, Carbon Dioxide 29.0, Anion Gap 3 L, BUN 25 H, Creatinine 1.58 H, Estim Creat Clear Calc 50.05, Est GFR (MDRD) Af Amer 57 L, Est GFR (MDRD) Non-Af 47 L, BUN/Creatinine Ratio 15.8, Glucose 140 H, Calcium 8.9, Total Bilirubin 0.40, AST 17, ALT 24, Alkaline Phosphatase 112, Troponin I High Sens 10.4, Total Protein 7.5, Albumin 3.4, Globulin 4.1, Albumin/Globulin Ratio 0.8 L 06/30/21 07:45: Lactic Acid 1.6 06/30/21 07:45: B-Natriuretic Peptide 93.1 06/30/21 07:45: Procalcitonin 0.17 H 06/30/21 07:51: PT 14.4, INR 1.2, APTT 24.9 06/30/21 12:51: POC Glucose 292 H Micro: Microbiology 06/30/21 07:30 Urine, Clean Catch Legionella Antigen - Final 06/30/21 07:30 Urine, Clean Catch Streptococcus pneumoniae Antigen (M - Final ABG Data ABG results: ABG 06/30/21 10:41 Specimen Type ART Sample Site L Radial pH 7.40 Bicarbonate Actual 25.8 Total CO2 27 Base Excess 1 O2 Saturation 98 ABG pCO2 41.9 ABG pO2 97 Gabe Test Positive O2 Delivery Device Cannula Liter Flow 4.0 Radiology Impression Chest X-Ray 06/30/21 08:05 IMPRESSION: Normal portable chest. Electronically Signed: Crow Hartley DO at 9:00 EDT Tel , Service support , Chest CT 06/30/21 09:31 IMPRESSION: Right upper lobe and right lower lobe pneumonia. Electronically Signed: Deuce Floyd MD at 10:59 EDT Tel , Service support , Charges/Coding Visit Charges Inpatient E&M: 12337 Init Hosp L2
--- NOTE | 2021-06-30 15:05 | CASEMGMT ---
Readmission chart review: Pt was initially admitted 06/18-06/21/21 to IP for severe sepsis and d/c'd home with [facility] resumption. Pt then returned as OBS 06/27-06/28/21 to PCU for CELESTE/hypotension and was discharged home over the weekend. Pt returned to [facility] ED on with increased cough/SOB/fever and low sats at home. Pt admitted for COPD exac, hypoxia, leukocytosis. This is pt's 3rd visit for sepsis related to pneumonia in the last month and a half. Speech c/s ordered and pt to have MBS 8/3. Pt is active with [facility] SN, PT/OT. CM to follow for PT/OT evals and any further discharge planning/needs. SStsuzan JENKINS CM
--- NOTE | 2021-06-30 15:15 | RAD_ITS ---
PROCEDURE: Sniff test DATE OF EXAMINATION: 2020 INDICATION: Male, 61 years old. PHYSICIAN: Dr. JOHANA VALENTINE FLUOROSCOPY TIME (if supplied): (37 seconds) one fluoroscopic image was obtained Findings: Fluoroscopic images of the hemidiaphragms were performed and the patient was told to sniff, during fluoroscopy. The left hemidiaphragm demonstrates normal excursion during this test. There is some mild eventration of the right hemidiaphragm, however, the right hemidiaphragm moves normally during this sniff test. RAD/Chest Sniff Test Fluoro Only IMPRESSION: Mild eventration of the right hemidiaphragm projections well during the sniff test. Electronically Signed: Crow Hartley DO at 8:56 EDT Tel , Service support ,
[2021-06-30 15:20] LABS: M R Staph aureus DNA By PCR Negative (Negative); Probe Check PASS; Specimen Processing Control PASS
--- NOTE | 2021-06-30 15:26 | CHAPLAIN ---
Type of Pastoral Visit _x__ Initial Visit ___ Follow-up Visit ___ On-call Visit ___ General Patient Visit ___ Spiritual Assessment ___ Family Conference ___ Bereavement ___ Rapid Response ___ Code Blue ___ Other (describe below) Pastoral Care Referral From _x__ Patient ___ Family ___ Nurse ___ Physician ___ Supervisor [employer] Service ___ Plant Maintenance Mechanic ___ Other (describe below) Sacrament/Intervention _x__ Active listening ___ Anointing ___ Orthodoxy ___ Bereavement ___ Communion ___ Sarai exploration ___ _x__ Life review _x__ Prayer ___ Reconciliation ___ Sacrament of Sick _x__ Supportive presence ___ Wedding ___ Other (describe below) Pastoral Comments lots of life discussion and review; pt has been met before in previous admission; updates given and casual conversation to give pt opportunity to talk and find support
[2021-06-30] MEDS: Clotrimazole 1 APPLIC Tube TOPICAL ×2 (17:05→22:06)
[2021-06-30] MEDS: busPIRone 5 MG Tablet 7.5 MG PO ×2 (17:11→22:05)
[2021-06-30 17:21] LABS: Bedside Glucose 338 mg/dL (70-110)
[2021-06-30] MEDS: Atorvastatin Calcium 80 MG Tablet PO (22:05)
[2021-06-30] MEDS: traZODone 50 MG Tablet PO (22:05)
[2021-06-30] MEDS: Pregabalin 75 MG Capsule PO (22:05)
[2021-06-30] MEDS: Carvedilol 12.5 MG Tablet PO (22:06)
[2021-06-30] MEDS: 0.9% Saline Lock 10 ML Syringe IV (22:12)
[2021-06-30 22:31] LABS: Bedside Glucose 349 mg/dL (70-110)
[2021-07-01] VITALS (11 sets, daily range): BP systolic 128–190; BP diastolic 71–91; PULSE 71–89; RESP 18–26; TEMP 36.6–36.8; O2SAT 97–99
[2021-07-01] MEDS: busPIRone 5 MG Tablet 7.5 MG PO ×3 (06:38→21:10)
[2021-07-01] MEDS: Insulin Lispro 100 UNIT/ML INSULN.PEN SC ×4 (06:38→21:14)
[2021-07-01 06:45] LABS: Bedside Glucose 219 mg/dL (70-110)
[2021-07-01] MEDS: Ipratropium/Albuterol Sulfate 3 ML AMPUL.NEB INHALATION ×3 (07:03→19:30)
[2021-07-01 07:07] LABS: Absolute Lymphocyte Count 1.26 X10^3/uL (0.83-4.51); Absolute Neutrophil Count 26.3 X10^3/uL (2.0-7.7); Basophil# 0.07 X10^3/uL; Basophil% 0.2 % (0-1); Eosinophil# 0.01 X10^3/uL; Hemoglobin 10.3 g/dL (13.0-16.5); Lymphocyte # 1.26 X10^3/ul (0.83-4.51); Lymphocyte % 4.3 % (19-41); Mean Corp Hgb Conc 31.2 g/dL (32-36); Mean Corpuscular Hgb 29.2 pg (27.0-32.0); Mean Corpuscular Volume 93.5 fL (80-94); Mean Platelet Vol. 10.8 fl (6.2-12.0); Monocyte# 1.44 X10^3/uL; Monocyte% 4.9 % (0-10); NRBC Flagged by Analyzer 0 % (0-5); Neutrophil # 26.32 X10^3/uL (2.7-7.7); POSITIVE DIFFERENTIAL YES; Platelet Count 211 K/mm3 (150-450); RBC Distribution Width CV 12.8 % (11.6-14.6); Red Blood Count 3.53 M/mm3 (4.6-6.2); White Blood Count 29.3 K/mm3 (4.4-11.0)
[2021-07-01 07:08] LABS: Differential Indicated SCAN CRITERIA MET
[2021-07-01 07:41] LABS: Anion Gap 4 (5-15); BUN 29 mg/dL (7-18); BUN/Creat Ratio 23.6 RATIO (10-20); Calcium,Total 8.8 mg/dL (8.5-10.1); Chloride 109 mmol/L (98-107); Creatinine, Serum 1.23 mg/dL (0.70-1.30); EST Glomerular Filtration Rate 63 mL/min (>60); Est Glom Filt Rate - Afr Amer 77 mL/min (>60); Glucose 195 mg/dL (74-106); Potassium 4.5 mmol/L (3.5-5.1); Sodium Level 140 mmol/L (136-145)
--- NOTE | 2021-07-01 08:51 | PN.CC_ITS ---
Assessment & Plan Assessment/Plan (1) Pneumonia: QUALIFIERS: Pneumonia type: due to unspecified organism Laterality: right Lung location: lower lobe of lung Qualified Code(s): J18.9 - Pneumonia, unspecified organism (2) CELESTE (acute kidney injury): (3) Bronchiectasis with (acute) exacerbation: PLAN: RECOMMENDATIONS: 1. Wean supplemental oxygen to maintain saturations at or above 90%. 2. Continue broad-spectrum antimicrobials. 3. Encourage incentive spirometer and Acapella use. Mobilize patient as tolerated. Add Pep therapy 4. Await infectious disease recommendations 5. Increase activity as tolerated IMPRESSIONS: 1. Severe sepsis Clinical and radiographic concern for underlying pulmonary infectious etiology. The patient was adequately volume resuscitated. Antimicrobials will be continued pending further infectious work-up. The patient remains hemodynamically stable. Patient with recurrent previous pneumonias, but has bronchiectasis again on recent CT scan. Continue aggressive pulmonary toileting. Differential would include chronic aspiration versus bronchiectasis. Diaphragmatic paralysis would limit ability to for pulmonary toileting. However, patient has been on antibiotics consistently for over 3 weeks and it would be unlikely for this to lead to high fevers and leukocytosis. Infectious diseases following. Some concern for an occult abscess leading to current f indings. 2. Acute hypoxemic respiratory insufficiency secondary to bronchiectasis exacerbation Patient with bronchiectasis on CT scan and elevation of the right hemidia phragm. Patient appears to be responding to Acapella therapy. We'll hold off on vest therapy. Other differential would include congestive heart failure as patient does have a bicuspid mitral valve with murmur on exam. Clinical suspicion for bronchiectasis exacerbation versus mucous plugging. Patient states he has been using pulmonary toileting devices at home. 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 Patient did not have significant scooping on flow volume loop to suspect obstruction, but did have air trapping noted. Air trapping may be secondary to paralysis of the right hemidiaphragm. 3. Acute on chronic kidney disease Resolved with fluids. Most likely prerenal in etiology. Creatinine improved with volume expansion. Continue to monitor urine output for now. No current indication for renal replacement therapy. 4. History of coronary artery disease/diabetes mellitus/hypertension/anxiety/depression Complicates care, management, recovery and prognosis. Continue home medications as indicated. Subjective Subjective Patient overall feels subjectively improved compared to previous. Patient states he is getting little production with the Acapella. Patient denies any chest pain, nausea or vomiting. Patient reports he was told by the radiologist that there was no movement of the right diaphragm. Patient is not reporting any coughing or choking with p.o. intake Objective Data Objective Data Vital Signs: Vital Signs Temp Pulse Resp BP Pulse Ox 36.6 C 88 20 H 128/72 H 98 07/01/21 02:45 07/01/21 07:03 07/01/21 07:03 07/01/21 02:45 07/01/21 07:03 Oxygen Flow Rate (L/min) 2 Oxygen Delivery Method Nasal Cannula Weight: 119 kg Body Mass Index (BMI) 37.6 Intake & Output: Intake and Output for Last 24 Hours 06/29/21 06/30/21 07/01/21 23:59 23:59 23:59 Intake Total 1045 / 1045 580 / 580 Output Total 1875 / 1875 Balance 1045 / -380 -1295 / -1295 Medical Nutrition Assessment Dietitian: Nutrition Therapy Diagnosis Start: 06/30/21 11:35 Freq: Status: Active Protocol: Document 06/30/21 16:47 RMA (Rec: 06/30/21 16:48 RMA [id number]) Nutrition Malnutrition Evidence of Malnutrition Exists No Recommendation Dietitian Recommendations/Changes Continue cardiac, carbohydrate controlled diet. D/C glucerna 120mL PO 4x/day at [employer] since intake is good at meals. Lab / Micro Data Result Diagrams: 07/01/21 06:35 07/01/21 06:35 Labs: Laboratory Results - last 24 hr 06/30/21 07:30: Urine Opiates Screen NEGATIVE, Urine Methadone Screen NEGATIVE, Ur Barbiturates Screen NEGATIVE, Ur Phencyclidine Scrn NEGATIVE, Ur Amphetamines Screen NEGATIVE, U Methamphetamin-MDMA NEGATIVE, U Benzodiazepines Scrn POSITIVE H, Urine Cocaine Screen NEGATIVE, U Cannabinoids Screen NEGATIVE, Ur Drug Screen Comment 06/30/21 07:34: COVID-19 (RAFIQ) Not Detected 06/30/21 07:45: Procalcitonin 0.17 H 06/30/21 07:51: PT 14.4, INR 1.2, APTT 24.9 06/30/21 11:36: COVID-19 (RAFIQ) Not Detected 06/30/21 12:45: MRSA (PCR) Negative 06/30/21 12:51: POC Glucose 292 H 06/30/21 17:04: POC Glucose 338 H 06/30/21 22:03: POC Glucose 349 H 07/01/21 06:35: WBC 29.3 H, RBC 3.53 L, Hgb 10.3 L, Hct 33.0 L, MCV 93.5, MCH 29.2, MCHC 31.2 L, RDW Std Deviation 44.0 H, RDW Coeff of James 12.8, Plt Count 211, MPV 10.8, Immature Gran % (Auto) 0.600, Neut % (Auto) 90.0 H, Lymph % (Auto) 4.3 L, [place] % (Auto) 4.9, Eos % (Auto) 0.0, Baso % (Auto) 0.2, Absolute Neuts (auto) 26.3 H, Absolute Lymphs (auto) 1.26, Nucleated RBC % 0, Differential Comment COMMENT 07/01/21 06:35: Sodium 140, Potassium 4.5, Chloride 109 H, Carbon Dioxide 27.0, Anion Gap 4 L, BUN 29 H, Creatinine 1.23, Estim Creat Clear Calc 64.30, Est GFR (MDRD) Af Amer 77, Est GFR (MDRD) Non-Af 63, BUN/Creatinine Ratio 23.6 H, Glucose 195 H, Calcium 8.8 07/01/21 06:37: POC Glucose 219 H Micro: Microbiology 06/30/21 11:20 Mucosa - Nasopharyngeal Respiratory Panel (PCR) - Final 06/30/21 07:30 Urine, Clean Catch Legionella Antigen - Final 06/30/21 07:30 Urine, Clean Catch Streptococcus pneumoniae Antigen (M - Final ABG Data ABG results: ABG 06/30/21 10:41 Specimen Type ART Sample Site L Radial pH 7.40 Bicarbonate Actual 25.8 Total CO2 27 Base Excess 1 O2 Saturation 98 ABG pCO2 41.9 ABG pO2 97 Gabe Test Positive O2 Delivery Device Cannula Liter Flow 4.0 Radiography Diagnostic Testing: Radiology Impression Chest X-Ray 06/30/21 08:05 IMPRESSION: Normal portable chest. Electronically Signed: Crow Hartley DO at 9:00 EDT Tel , Service support , Chest CT 06/30/21 09:31 IMPRESSION: Right upper lobe and right lower lobe pneumonia. Electronically Signed: Deuce Floyd MD at 10:59 EDT Tel , Service support , Physical Exam Const alert, oriented x3 and no apparent distress Constitutional Narrative: Appears older than stated age General Appearance: anxious; Negative for in distress Nutritional Appearance: obese HEENT normocephalic, head/scalp atraumatic, moist oral mucous membranes and oropharynx normal Eyes conjunctivae normal and no scleral icterus Neck full ROM and No nuchal rigidity Lymph Lymphatic: no lymphadenopathy noted Chest inspection of chest normal Chest Narrative: Slight decreased expansion of the right chest noted Chest: Negative for symmetrical chest wall rise Resp Auscultation: rhonchi right lower and diminished lung sounds; Negative for rales or wheezes Cardio regular rate, regular rhythm, S1 normal heart sound, S2 normal heart sound, no murmurs, no rub and no gallops GI normal to inspection, nondistended, normoactive bowel sounds no CVA tenderness Extremity General Extremity: edema bilateral (Trace bilateral lower) Skin no rashes or lesions noted Neuro oriented x3, CN's II-XII intact bilaterally and no focal motor deficits Psych Mood & Affect: anxious Charges/Coding Visit Charges Inpatient E&M: 70953 Subs Hosp L2
[2021-07-01] MEDS: Finasteride 5 MG Tablet PO (09:09)
[2021-07-01] MEDS: guaiFENesin 1,200 MG Tablet 1200 MG PO ×2 (09:09→21:11)
[2021-07-01] MEDS: Clotrimazole 1 APPLIC Tube TOPICAL ×2 (09:09→21:15)
[2021-07-01] MEDS: Pantoprazole Sodium 20 MG Tablet PO (09:09)
[2021-07-01] MEDS: Enoxaparin 40 MG/0.4 ML Syringe SC (09:09)
[2021-07-01] MEDS: Clopidogrel Bisulfate 75 MG Tablet PO (09:09)
[2021-07-01] MEDS: Isosorbide Mononitrate 30 MG Tablet PO (09:09)
[2021-07-01] MEDS: Carvedilol 12.5 MG Tablet PO ×2 (09:10→21:11)
[2021-07-01] MEDS: FLUoxetine 20 MG Capsule PO (09:10)
[2021-07-01] MEDS: Pregabalin 75 MG Capsule PO ×2 (09:10→21:11)
--- NOTE | 2021-07-01 10:30 | SP.MBSS_ITS ---
Modified Barium Swallow - Patient Information Study Date: 07/01/21 Study Time: 10:30 Direct Billable Minutes: 135 Total Minutes procedure & reportin Diagnosis: dysphagia Referring Physician: Casa Helton Reason for Referral: Objective assessment of swallow function under fluoroscopy to identify potential pharyngeal stasis, retrograde bolus flow and/or silent aspiration as contributing factors precipitating recurrent PNA, given known history of COPD and GERD. Medical History: Raheem Linda is a 61 y/o male who presented to [facility] on 06/30/2021 secondary to fever, hypoxia and worsening shortness of breath. Patient had recently been hospitalized as an observation secondary to reported acute kidney injury that was thought to be secondary to dehydration. Patient states that he started to have chills, body aches and dyspnea shortly after discharge from the hospital. Patient did not have any change in taste or smell, but reports he had already been immunized for Covid. Patient is reportedly on 2 to 3 L at all times at home, but reportedly EMS had noted that he was in the 80s on his home oxygen setting. PMHX: Amputation of one or more toes; Anxiety; CAD (coronary artery disease); Chest pain; Congestive heart failure (CHF); COPD (chronic obstructive pulmonary disease); CPAP (continuous positive airway pressure) dependence; Depression; Diabetes; GERD (gastroesophageal reflux disease); Hypertension; Kidney stones; Migraines; Myocardial infarct; Non-smoker; On home oxygen therapy; PAD (peripheral artery disease); Pulmonary nodule, left; Severe sepsis; Sleep apnea; Vision loss of left eye Current Diet Ordered: regular textures/thin liquids Dentition: Natural Teeth, Missing Teeth Mental Status: WNL Respiratory Status: Oxygenating on 2L/M nasal cannula - Penetration-Aspiration Scale Penetration-Aspiration Scale: OBJECTIVE ASSESSMENT OF SWALLOW FUNCTION (QUANTITATIVE ? PER TRIAL): PENETRATION / ASPIRATION SCALE (SANCHEZ): 1 = does not enter airway 2 = enters airway/above vocal folds/ejected 3 = enters airway/above vocal folds/not ejected 4 = enters airway/contacts vocal folds/ejected 5 = enters airway/contacts vocal folds/not ejected 6 = enters airway/below vocal folds/ejected 7 = enters airway/below vocal folds/not ejected despite effort 8 = enters airway/below vocal folds/no effort VIDEOFLOROSCOPIC SCALE SCORE (SANCHEZ): Grade I = aspiration of material that has penetrated into the laryngeal vestibule, intact cough reflex Grade II = aspiration < 10 % of the bolus, intact cough reflex Grade III = aspiration of < 10 % of the bolus, reduced cough reflex or aspiration of > 10 % of the bolus, intact cough reflex Grade IV = aspiration of > 10 % of the bolus, reduced cough reflex - Penetration-Aspiration Scale Score Thin Liquid via teaspoon Result: 5= enters airways/contacts vocal folds/not ejected Comment: bolus spilled to pyriforms prior to swallow onset w/ penetration during the swallow Thin Liquid via teaspoon Trial 2 Result: 1= does not enter airway Comment: improved timeliness of swallow onset compared to trial one Thin Liquid via large single sip from cup Result: 2= enter airway/above vocal folds/ejected Thin Liquid via sequential sips from cup Result: 8= enters airway/below vocal folds/no effort - Grade III = aspiration of < 10 % of the bolus, reduced cough reflex *image w/ red arrow highlighting aspiration is available in PACS* Comment: reduced bolus control w/ larger volume; bolus spilled to the pyriforms prior to swallow onset w/ penetration and silent aspiration during the swallow Thin Liquid via small single sip from cup Result: 3= enters airways/above vocal folds/not ejected Thin Liquid via single sip from straw Result: 2= enter airway/above vocal folds/ejected [place] Thick Liquid via small single sip from cup Result: 2= enter airway/above vocal folds/ejected Comment: increased spillage/pooling into the pyriforms prior to swallow onset Honey Thick Liquid via small single sip from cup Result: 1= does not enter airway Pudding via teaspoon Result: 1= does not enter airway Pudding via teaspoon with esophageal screen Result: 1= does not enter airway Comment: esophageal retention Cookie Result: 1= does not enter airway Thin Liquid via small single sip from cup Effortful swallow Result: 3= enters airways/above vocal folds/not ejected - contrast visible w/in the laryngeal vestibule prandially Comment: Difficult to confidently rate penetration d/t movement of patient during swallow; spillage to pyriforms prior to swallow onset Thin Liquid via small single sip from cup Effortful swallow Trial 2 Result: 2= enter airway/above vocal folds/ejected Comment: improved swallow onset timing w/ bolus head in valleculae - Oral Phase Labial Seal: No Labial Escape Tongue Control During Bolus Hold: Escape to lateral buccal cavity/floor of mouth Bolus Preparation/Mastication: Slow prolonged chewing/mashing with complete recollection Bolus Transport/Lingual Motion: Slowed tongue motion Oral Residue: Residue collection on oral structures - Pharyngeal Phase Initiation of Pharyngeal Swallow: Bolus head in pyriforms Soft Palate Elevation: No bolus between soft palate and pharyngeal wall Laryngeal Elevation: Partial superior movement thyroid cart/partial apprx aryt- epig petiole Anterior Hyoid Excursion: Partial anterior movement Epiglottic Movement: Complete inversion Laryngeal Vestibule Closure at Height of Swallow: Incomplete; narrow column of air/contrast in laryngeal vestibule Pharyngeal Stripping Wave: Present - diminished - upper 1/2 diminished, lower 1/2 WNL Pharyngoesophageal Segment Opening: Complete distension and complete duration; no obstruction of flow Tongue Base Retraction: Trace column of contrast between tongue base & post. pharyngeal wall Pharyngeal Residue: Collection of residue within or on pharyngeal structures - vallecular/pyriform residue w/ pudding - Esophageal Phase Esophageal Clearance: Esophageal retention - Treatment Strategies Effects of treatment strategies attemped:: Reduced bolus volume (small sips) = EFFECTIVE Reduced rate of intake (single sips, one sip at a time) = EFFECTIVE Effortful swallow = SOMEWHAT EFFECTIVE Expectoration (cough & re-swallow to clear penetrated contrast from the laryngeal vestibule) = EFFECTIVE - Diagnosis/Impression Diagnosis: moderate oropharyngeal dysphagia (R13.12) Impression: This patient presents with moderate oropharyngeal dysphagia (R13.12). Swallow function is characterized by reduced oral control w/ liquid spillage into the pharynx and pooling w/in the pyriform sinuses prior to swallow onset resulting in laryngeal vestibule penetration and SILENT ASPIRATION of liquids entering from the pyriforms. Bolus location upon swallow onset was improved (ramus of mandible/valleculae) w/ reduction in liquid bolus volume (small sips) and subsequently reduced/eliminated laryngeal vestibule penetration/aspiration. Prolonged but adequate mastication of solids noted d/t missing molars w/ slowed lingual transportation of solids. Prandial pharyngeal stasis lining the valleculae and pyriforms present - sufficiently cleared w/ an additional swallow. Despite aspiration being silent in nature, a cued cough was effective to expel contrast from the laryngeal vestibule, but not the trachea. Highly suspect moderate oropharyngeal dysphagia w/ silent aspiration of liquids to be the primary contributing factor in recurrent pneumonias, given hx of COPD. Esophageal retention was evident when screened for esophageal bolus clearance - consider further assessment of esophageal function as reflux could also be a contributing factor in recurrent pneumonias Patient noted to SILENTLY aspirate with thin liquids, therefore clinical assessment at bedside relying upon identification of classic overt signs and symptoms of aspiration will be unreliable to determine if/when compensatory strategy use is no longer required. Repeat MBS required to gauge progress in conjunction with dysphagia intervention. - Recommendations Diet: Regular Textures, Thin Liquids Comment: Recommended Compensatory Strategies: * small bites * small sips, one sip at a time * slow rate of intake to reduce shortness of breath * double swallow as needed t/o meals to clear pharyngeal residue * cough and re-swallow at reasonable intervals t/o meals to clear the laryngeal vestibule of any residue * sit upright at 90 degrees for all meals and medications * remain upright for 30-60 minutes after meals (GERD precautions) Supervision: Distant Supervision - would benefit from verbal cues to reinforce consistent use of recommended compensatory strategies until consistent carryover use is noted Recommend Repeat Modified Barium Swallow: Yes - repeat MBS in 4-6 weeks to gauge progress following a cycle of dysphagia treatment w/ a Speech-Language Pathiologist Need for Skilled Speech Therapy Services: Yes Comment: Skilled Dysphagia Intervention with a Speech-Language Pathologist is required for: * training and implementation of recommended compensatory strategies * training and implementation of recommended oropharyngeal strengthening exercises to facilitate improved lingual control/strength, swallow onset timing, laryngeal vestibule closure/pressure (with treatment including but not limited to - sandie, antonino maneuver, tongue base retraction, expectoration, respiratory muscle strength training) * patient and caregiver education regarding silent aspiration and dysphagia associated with chronic obstructive pulmonary disease Recommended Referrals: GI Consult - esophageal retention evident during screening for clearance; hx GERD which may be a contributing factor to recurrent PNA Education Completed: 1. Described result of evaluation., 2. Pt understands evaluation & agrees with goals and treatment plan. Comment: Results and recommendations were discussed with the patient immediately following MBS conclusion. Images were reviewed and education provided re: anatomy/physiology of swallow mechanism, silent aspiration, and connection between COPD and dysphagia to improve patient understanding of and adherence to the recommendations detailed above. The patient verbalized understanding and agreement with all recommendations and education provided, although requested clarification several times. Recommend ongoing education re: results, recommendations and treatment plan w/ patient and who serves as this patient?s primary caregiver. - Status Active ST Patient: Active - Contact Information [facility] Speech Therapy:: Brenda Huber M.A., CCC-DATA OPERATIONS DIRECTOR [facility] [address] [place] [address] [phone] [email or web address]
[2021-07-01] MEDS: Furosemide 40 MG Tablet PO (11:28)
[2021-07-01 11:41] LABS: Bedside Glucose 277 mg/dL (70-110)
[2021-07-01] MEDS: Losartan Potassium 100 MG Tablet PO (12:51)
--- NOTE | 2021-07-01 14:08 | CON.PCM.ID_ITS ---
Assessment & Plan Assessment/Plan (1) Pneumonia: QUALIFIERS: Pneumonia type: due to unspecified organism Laterality: right Lung location: lower lobe of lung Qualified Code(s): J18.9 - Pneumonia, unspecified organism PLAN: severe sepsis (fever, leukocytosis, CELESTE on CKD). Feeling better. Ucx with staph aureus, bcx pending. Covid neg, has been vaccinated. Possible chronic aspiration. Cont empiric vanc/zosyn for now while cxs pending. Will follow, thank you, d/w Dr. Helton HPI Consult Data Date of Consult: 07/01/21 HPI Narrative HPI Narrative: REA HANNA, is a 61 M who presented 06/30 with cough, mild fever, some dyspnea. Had been discharged 06/28 after admission for hypotension. H/o recurrent pneumonia. Has gotten covid shot. No n/v/d. Admitted on vanc/zosyn, feeling better. Additional history obtained from his fiancee. Seen by pulm. Full ROS performed and neg except as noted above. [facility] Medical History Amputation of one or more toes Anxiety CAD (coronary artery disease) Chest pain Congestive heart failure (CHF) COPD (chronic obstructive pulmonary disease) CPAP (continuous positive airway pressure) dependence Depression Diabetes GERD (gastroesophageal reflux disease) Hypertension Kidney stones Kidney stones Migraines Myocardial infarct Non-smoker On home oxygen therapy PAD (peripheral artery disease) Pulmonary nodule, left Severe sepsis Sleep apnea Vision loss of left eye Home Medications acetaminophen 1,000 mg PO BID PRN PRN 02/11/21 [History Last Taken 06/16/21] alprazolam 0.5 mg PO BID 02/11/21 [History Last Taken 06/17/21] atorvastatin 80 mg PO QHS 02/11/21 [History Last Taken 06/17/21] buspirone 7.5 mg PO TID 02/11/21 [History Last Taken 06/17/21] carvedilol 25 mg PO BID 02/11/21 [History Last Taken 06/17/21] clopidogrel 75 mg PO DAILY 02/11/21 [History Last Taken 06/17/21] finasteride 5 mg PO DAILY 02/11/21 [History Last Taken 06/17/21] fluoxetine 20 mg PO DAILY 02/11/21 [History Last Taken 06/17/21] fluoxetine 40 mg PO DAILY 02/11/21 [History Last Taken 06/17/21] insulin detemir U-100 28 unit SQ QHS 02/11/21 [History Last Taken 06/26/21] insulin lispro See Protocol SQ TIDCM 02/11/21 [History Last Taken 06/17/21] isosorbide mononitrate 30 mg PO DAILY 02/11/21 [History Last Taken 06/17/21] losartan 100 mg PO DAILY 02/11/21 [History Last Taken 06/17/21] nitroglycerin 0.4 mg SL Q5M PRN 02/11/21 [History Last Taken 02/08/21] pantoprazole 20 mg PO DAILY 02/11/21 [History Last Taken 06/17/21] trazodone 100 mg PO QHS 02/11/21 [History Last Taken 06/17/21] pregabalin [Lyrica] 75 mg PO BID 05/13/21 [History Last Taken 06/17/21] exenatide microspheres 2 mg SUBCUT SA 06/18/21 [History Last Taken 06/21/21] furosemide 40 mg PO DAILY #0 tab 06/28/21 [Rx Last Taken 06/17/21] nystatin [Nyamyc] 1 applic TOPICAL BID #0 g 06/28/21 [Rx Last Taken Unknown] Allergy/AdvReac Type Severity Reaction Status Date / Time allopurinol AdvReac Vomiting Verified 06/30/21 07:06 Influenza Virus Vaccines AdvReac Vomiting Verified 06/30/21 07:06 pneumococcal vaccine AdvReac Vomiting Verified 06/30/21 07:06 Family History Mother Diabetes Heart disease CHF Father Heart disease RI/CAD Myocardial infarction Surgical History H/O lithotripsy History of ankle surgery History of coronary artery stent placement Hx of toe surgery S/P peripheral artery angioplasty with stent placement S/P thyroid surgery Social History household members: spouse housing: apartment Smoking Status: Never smoker alcohol intake: never substance use type: does not use Physical Exam Const alert, oriented x3 and no apparent distress General Appearance: cooperative HEENT head/scalp atraumatic Eyes PERRL and EOMs intact bilaterally Neck supple and No nodes Resp Resp Narrative: basilar rales, some upper wheezes Cardio regular rate and regular rhythm GI normal to inspection, nondistended, normoactive bowel sounds Extremity no clubbing, cyanosis or edema Skin no rashes or lesions noted Neuro CN's II-XII intact bilaterally Medical Records Data Medical Nutrition Assessment Dietitian: Nutrition Therapy Diagnosis Start: 06/30/21 11:35 Freq: Status: Active Protocol: Document 06/30/21 16:47 RMA (Rec: 06/30/21 16:48 RMA [id number]) Nutrition Malnutrition Evidence of Malnutrition Exists No Recommendation Dietitian Recommendations/Changes Continue cardiac, carbohydrate controlled diet. D/C glucerna 120mL PO 4x/day at medpass since intake is good at meals. Lab / Micro Data Result Diagrams: 07/01/21 06:35 07/01/21 06:35 Labs: Laboratory Results - last 24 hr 06/30/21 11:36: COVID-19 (RAFIQ) Not Detected 06/30/21 12:45: MRSA (PCR) Negative 06/30/21 17:04: POC Glucose 338 H 06/30/21 22:03: POC Glucose 349 H 07/01/21 06:35: WBC 29.3 H, RBC 3.53 L, Hgb 10.3 L, Hct 33.0 L, MCV 93.5, MCH 29 .2, MCHC 31.2 L, RDW Std Deviation 44.0 H, RDW Coeff of James 12.8, Plt Count 211, MPV 10.8, Immature Gran % (Auto) 0.600, Neut % (Auto) 90.0 H, Lymph % (Auto) 4.3 L, [place] % (Auto) 4.9, Eos % (Auto) 0.0, Baso % (Auto) 0.2, Absolute Neuts (auto) 26.3 H, Absolute Lymphs (auto) 1.26, Nucleated RBC % 0, Differential Comment COMMENT 07/01/21 06:35: Sodium 140, Potassium 4.5, Chloride 109 H, Carbon Dioxide 27.0, Anion Gap 4 L, BUN 29 H, Creatinine 1.23, Estim Creat Clear Calc 64.30, Est GFR (MDRD) Af Amer 77, Est GFR (MDRD) Non-Af 63, BUN/Creatinine Ratio 23.6 H, Glucose 195 H, Calcium 8.8 07/01/21 06:37: POC Glucose 219 H 07/01/21 11:27: POC Glucose 277 H Micro: Microbiology 06/30/21 07:30 Urine, Clean Catch Urine Culture - Preliminary Staphylococcus aureus 06/30/21 11:20 Mucosa - Nasopharyngeal Respiratory Panel (PCR) - Final 06/30/21 07:30 Urine, Clean Catch Legionella Antigen - Final 06/30/21 07:30 Urine, Clean Catch Streptococcus pneumoniae Antigen (M - Final Radiology Impression Chest Fluoroscopy 06/30/21 15:15 IMPRESSION: Mild eventration of the right hemidiaphragm projections well during the sniff test. Electronically Signed: Crow Hartley DO at 8:56 EDT Tel , Service support ,
--- NOTE | 2021-07-01 14:46 | PN.HOSP_ITS ---
Subjective Subjective Improvement in shortness of breath. No fever. Blood pressure is elevated. Objective Data Objective Data Vital Signs: Vital Signs Temp Pulse Resp BP Pulse Ox 98.3 F 89 20 H 190/91 H 98 07/01/21 09:05 07/01/21 12:40 07/01/21 12:40 07/01/21 09:05 07/01/21 09:05 Oxygen Flow Rate (L/min) 2 Oxygen Delivery Method Nasal Cannula Weight: 262 lb 5.601 oz Body Mass Index (BMI) 37.6 Intake & Output: Intake and Output for Last 24 Hours 06/29/21 06/30/21 07/01/21 23:59 23:59 23:59 Intake Total 1045 / 1045 1560 / 1560 Output Total 2375 / 2375 Balance 1045 / -380 -815 / -815 Medical Nutrition Assessment Dietitian: Nutrition Therapy Diagnosis Start: 06/30/21 11:35 Freq: Status: Active Protocol: Document 06/30/21 16:47 RMA (Rec: 06/30/21 16:48 RMA [id number]) Nutrition Malnutrition Evidence of Malnutrition Exists No Recommendation Dietitian Recommendations/Changes Continue cardiac, carbohydrate controlled diet. D/C glucerna 120mL PO 4x/day at medpass since intake is good at meals. Lab / Micro Data Result Diagrams: 07/01/21 06:35 07/01/21 06:35 Labs: Laboratory Results - last 24 hr 06/30/21 11:36: COVID-19 (RAFIQ) Not Detected 06/30/21 12:45: MRSA (PCR) Negative 06/30/21 17:04: POC Glucose 338 H 06/30/21 22:03: POC Glucose 349 H 07/01/21 06:35: WBC 29.3 H, RBC 3.53 L, Hgb 10.3 L, Hct 33.0 L, MCV 93.5, MCH 29.2, MCHC 31.2 L, RDW Std Deviation 44.0 H, RDW Coeff of James 12.8, Plt Count 211, MPV 10.8, Immature Gran % (Auto) 0.600, Neut % (Auto) 90.0 H, Lymph % (Auto) 4.3 L, [place] % (Auto) 4.9, Eos % (Auto) 0.0, Baso % (Auto) 0.2, Absolute Neuts (auto) 26.3 H, Absolute Lymphs (auto) 1.26, Nucleated RBC % 0, Differential Comment COMMENT 07/01/21 06:35: Sodium 140, Potassium 4.5, Chloride 109 H, Carbon Dioxide 27.0, Anion Gap 4 L, BUN 29 H, Creatinine 1.23, Estim Creat Clear Calc 64.30, Est GFR (MDRD) Af Amer 77, Est GFR (MDRD) Non-Af 63, BUN/Creatinine Ratio 23.6 H, Glucose 195 H, Calcium 8.8 07/01/21 06:37: POC Glucose 219 H 07/01/21 11:27: POC Glucose 277 H Micro: Microbiology 06/30/21 07:30 Urine, Clean Catch Urine Culture - Preliminary Staphylococcus aureus 06/30/21 11:20 Mucosa - Nasopharyngeal Respiratory Panel (PCR) - Final 06/30/21 07:30 Urine, Clean Catch Legionella Antigen - Final 06/30/21 07:30 Urine, Clean Catch Streptococcus pneumoniae Antigen (M - Final Radiography Diagnostic Testing: Radiology Impression Chest Fluoroscopy 06/30/21 15:15 IMPRESSION: Mild eventration of the right hemidiaphragm projections well during the sniff test. Electronically Signed: Crow Hartley DO at 8:56 EDT Tel , Service support , Physical Exam Narrative General: Alert, Oriented x3, Cooperative HEENT: Atraumatic, PERRLA, EOMI, Normocephalic Oral: No Gingival or Mucosal Lesions/ Ulcerations Neck: Supple, No JVD, Negative Carotid Bruits Lungs: Air entry diminished on right lung base. Mild right lung base crepitation Cardiovascular: Sinus rhythm, PVCs, normal S1, Normal S2, No murmurs Abdomen: Bowel Sounds Present, Soft, Non Tender, Non-Distended : Urinary incontinence with wet perineal region. No suprapubic tenderness. Extremities: Improvement bilateral ankle edema, Capillary Refill Less than 3 Seconds Skin: Erythematous rash over both groin and inguinal region with excoriation. Musculoskeletal: Right metatarsal foot amputation. ROM restricted. Uses walker or motorized scooter Neurological: Cranial nerves II-XII grossly intact, weakness of right lower extremity more than left lower extremity at major joints. DTR 2+/4 Psych/Mental Status: Normal Affect, Appropriate. Assessment & Plan Assessment/Plan (1) Pneumonia: QUALIFIERS: Pneumonia type: due to unspecified organism Laterality: right Lung location: lower lobe of lung Qualified Code(s): J18.9 - Pneumonia, unspecified organism PLAN: REA HANNA, is a 61 M who was just discharged on 06/28 was brought by EMS for shortness of breath, fever with chills; temperature 101.7 ?F with mild cough and CT chest consistent with a right upper and lower lobe pneumonia 1. SIRS (tachycardia, tachypnea, fever with leukocytosis, with neutrophilia) with sepsis due to right multifocal pneumonia, bronchiectasis exacerbation with chronic hypoxic respiratory failure: Patient is being admitted in PCU. Continue bronchodilator, incentive spirometry and chest physiotherapy/acapella. ABG 7.4//97 on 4 L of oxygen 07/01: Lactic acid is normal. Seen by pad extraction tender and discussed with him. Seen by ID. Continue vancomycin and Zosyn. Continue bronchodilator. Preliminary urine culture shows staph aureus 11,000- 25,000. UA 0 WBC, negative nitrite and LE. UTI ruled out. Respiratory panel negative. CT chest reviewed with pad extraction tender shows bronchiectasis, elevation of right hemidiaphragm. 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 Recent CELESTE with hypotension, on chronic CKD stage IIIa: Continue baseline IV fluid. Monitor kidney function electrolytes. 07/01: Blood pressure is elevated/high. 3. Heart failure of unclear type and etiology: Patient on Plavix, statin, isosorbide. /: Spironolactone, losartan and Lasix. 4. Coronary artery disease, PAD: Patient had cardiac stent and bilateral lower extremity, 2 stents on each side. Right foot Symes amputation 5. Diabetes mellitus type 2 with peripheral neuropathy: Glucose is controlled. Accu-Cheks before meals and at bedtime and patient on Lantus. Continue Lyrica. 6. Other comorbidities include hypertension, anxiety and depression, chronic normocytic anemia, obesity, GERD, obstructive sleep apnea: Low functional capacity. PT and OT ordered. Home medication reconciliation done VTE prophylaxis: On Lovenox 40 mg subcu day Living will/advanced directive/end of life care: Patient does have living will or advanced directive. Full code. Laboratory Results 06/30/21 10:41: Specimen Type ART, Sample Site L Radial, pH 7.40, Bicarbonate Actual 25.8, Total CO2 27, Base Excess 1, O2 Saturation 98, ABG pCO2 41.9, ABG pO2 97, Gabe Test Positive, O2 Delivery Device Cannula, Liter Flow 4.0 Clinical Impression(s) from Imaging Studies Chest X-Ray 06/30/21 08:05 IMPRESSION: Normal portable chest. Electronically Signed: Crow Hartley DO at 9:00 EDT Tel , Service support , Chest CT 06/30/21 09:31 IMPRESSION: Right upper lobe and right lower lobe pneumonia. Charges/Coding Visit Charges Inpatient E&M: 37227 Subs Hosp L2
[2021-07-01 16:51] LABS: Bedside Glucose 260 mg/dL (70-110)
[2021-07-01] MEDS: Acetaminophen 325 MG Tablet 650 MG PO (21:11)
[2021-07-01] MEDS: traZODone 50 MG Tablet PO (21:11)
[2021-07-01] MEDS: Atorvastatin Calcium 80 MG Tablet PO (21:12)
[2021-07-01 22:26] LABS: Bedside Glucose 278 mg/dL (70-110)
[2021-07-01 23:12] LABS: Vancomycin, Trough Level 23.2 ug/mL (5.0-15.0)
--- NOTE | 2021-07-01 23:26 | PCM.RX.CS ---
Consult Pharmacy has been consulted to manage selected antiobiotic: Vancomycin Type of Consult: Follow-up Labs: Sodium 140 mmol/L (136-145) 07/01/21 06:35 Potassium 4.5 mmol/L (3.5-5.1) 07/01/21 06:35 Chloride 109 mmol/L (98-107) H 07/01/21 06:35 Carbon Dioxide 27.0 mmol/L (21.0-32.0) 07/01/21 06:35 Anion Gap 4 (5-15) L 07/01/21 06:35 BUN 29 mg/dL (7-18) H 07/01/21 06:35 Creatinine 1.23 mg/dL (0.70-1.30) 07/01/21 06:35 Est GFR (MDRD) Af Amer 77 mL/min (>60) 07/01/21 06:35 Est GFR (MDRD) Non-Af 63 mL/min (>60) 07/01/21 06:35 BUN/Creatinine Ratio 23.6 RATIO (10-20) H 07/01/21 06:35 Glucose 195 mg/dL (74-106) H 07/01/21 06:35 Vancomycin Trough 23.2 ug/mL (5.0-15.0) H 07/01/21 22:28 Microbiology: Microbiology 06/30/21 07:30 Urine, Clean Catch Urine Culture - Preliminary Staphylococcus aureus 06/30/21 11:20 Mucosa - Nasopharyngeal Respiratory Panel (PCR) - Final 06/30/21 07:30 Urine, Clean Catch Legionella Antigen - Final 06/30/21 07:30 Urine, Clean Catch Streptococcus pneumoniae Antigen (M - Final Goal Trough: 15-20 mcg/mL Pharmacy Plan for Drug Dosing: Pharmacy Service will continue to monitor and adjust dosing as required. TROUGH 23.2 STOP CURRENT DOSE, DRAW RANDOM TROUGH IN 12 HOURS Follow-Up Labs: Trough Vancomycin Labs to be done on [date and time ordered]: 07/02 @ 9694
[2021-07-02] VITALS (8 sets, daily range): BP systolic 130–132; BP diastolic 60–67; PULSE 66–77; RESP 18–20; TEMP 36.6–36.8; O2SAT 2–97
[2021-07-02] MEDS: busPIRone 5 MG Tablet 7.5 MG PO (05:41)
[2021-07-02 06:03] LABS: Absolute Lymphocyte Count 1.64 X10^3/uL (0.83-4.51); Absolute Neutrophil Count 11.6 X10^3/uL (2.0-7.7); Basophil# 0.08 X10^3/uL; Basophil% 0.6 % (0-1); Eosinophil# 0.11 X10^3/uL; Eosinophils% 0.8 % (0-5); Hematocrit 31.7 % (40-54); Hemoglobin 9.9 g/dL (13.0-16.5); Lymphocyte # 1.64 X10^3/ul (0.83-4.51); Lymphocyte % 11.3 % (19-41); Mean Corp Hgb Conc 31.2 g/dL (32-36); Mean Corpuscular Hgb 29.2 pg (27.0-32.0); Mean Corpuscular Volume 93.5 fL (80-94); Mean Platelet Vol. 10.8 fl (6.2-12.0); Monocyte# 0.98 X10^3/uL; Monocyte% 6.8 % (0-10); NRBC Flagged by Analyzer 0 % (0-5); Neutrophil # 11.57 X10^3/uL (2.7-7.7); Platelet Count 205 K/mm3 (150-450); RBC Distribution Width SD 44.6 fl (35.1-43.9); Red Blood Count 3.39 M/mm3 (4.6-6.2); White Blood Count 14.5 K/mm3 (4.4-11.0)
[2021-07-02 06:34] LABS: Anion Gap 5 (5-15); BUN 27 mg/dL (7-18); BUN/Creat Ratio 19.9 RATIO (10-20); Calcium,Total 8.5 mg/dL (8.5-10.1); Chloride 108 mmol/L (98-107); Creatinine, Serum 1.36 mg/dL (0.70-1.30); EST Glomerular Filtration Rate 56 mL/min (>60); Est Glom Filt Rate - Afr Amer 68 mL/min (>60); Estimated Creatinine Clearance 58.15 ml/min; Glucose 121 mg/dL (74-106); Potassium 4.2 mmol/L (3.5-5.1); Sodium Level 142 mmol/L (136-145)
[2021-07-02 07:00] LABS: Bedside Glucose 124 mg/dL (70-110)
[2021-07-02] MEDS: Ipratropium/Albuterol Sulfate 3 ML AMPUL.NEB INHALATION (07:28)
--- NOTE | 2021-07-02 08:48 | PN.CC_ITS ---
Assessment & Plan Assessment/Plan (1) Pneumonia: QUALIFIERS: Pneumonia type: due to unspecified organism Laterality: right Lung location: lower lobe of lung Qualified Code(s): J18.9 - Pneumonia, unspecified organism (2) CELESTE (acute kidney injury): (3) Bronchiectasis with (acute) exacerbation: PLAN: RECOMMENDATIONS: 1. Wean supplemental oxygen to maintain saturations at or above 90%. 2. Likely okay to complete a 7-day course of antibiotics 3. Encourage incentive spirometer and Acapella use. Mobilize patient as tolerated. Add Pep therapy 4. Await infectious disease recommendations 5. Consider modified diet per swallow study results IMPRESSIONS: 1. Severe sepsis Clinical and radiographic concern for underlying pulmonary infectious etiology. The patient was adequately volume resuscitated. Antimicrobials will be continued pending further infectious work-up. The patient remains hemod ynamically stable. Patient with recurrent previous pneumonias, but has bronchiectasis again on recent CT scan. Continue aggressive pulmonary toileting. Swallow study appears to suggest patient has silent aspiration with thin liquids. This would account for recurrent febrile presentations in rapid decompensation with going home. This would also lead to right lower lobe bronchiectasis over time. 2. Acute hypoxemic respiratory insufficiency secondary to bronchiectasis exacerbation Patient with bronchiectasis on CT scan and elevation of the right hemidiaphragm. Patient appears to be responding to Acapella therapy. We'll hold off on vest therapy. Other differential would include congestive heart failure as patient does have a bicuspid mitral valve with murmur on exam. Clinical suspicion for bronchiectasis exacerbation versus mucous plugging. Patient states he has been using pulmonary toileting devices at home. 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 Patient did not have significant scooping on flow volume loop to suspect obstruction, but did have air trapping noted. Air trapping may be secondary to paralysis of the right hemidiaphragm. 3. Acute on chronic kidney disease Resolved with fluids. Most likely prerenal in etiology. Creatinine improved with volume expansion. Continue to monitor urine output for now. No current indication for renal replacement therapy. 4. History of coronary artery disease/diabetes mellitus/hypertension/anxiety/depression Complicates care, management, recovery and prognosis. Continue home medications as indicated. Subjective Subjective Patient continues to improve subjectively. Patient did not have any fever overnight and feels that his breathing is getting closer to normal. Patient has been compliant with his incentive spirometer. Patient did state that he refused his aerosol overnight secondary to a metallic taste that he gives him. Patient was able to tolerate until this morning. Objective Data Objective Data Vital Signs: Vital Signs Temp Pulse Resp BP Pulse Ox 36.6 C 77 20 H 132/60 H 96 07/02/21 04:00 07/02/21 07:28 07/02/21 07:28 07/02/21 04:00 07/02/21 07:27 Oxygen Flow Rate (L/min) 2 Oxygen Delivery Method Room Air Weight: 119 kg Body Mass Index (BMI) 37.6 Intake & Output: Intake and Output for Last 24 Hours 06/30/21 07/01/21 07/02/21 23:59 23:59 23:59 Intake Total 1045 / 1045 2293.33 / 2493.33 300 / 300 Output Total 3625 / 4075 750 / 750 Balance 1045 / -380 -1331.67 / -1581.67 -450 / -450 Medical Nutrition Assessment Dietitian: Nutrition Therapy Diagnosis Start: 06/30/21 11:35 Freq: Status: Active Protocol: Document 06/30/21 16:47 RMA (Rec: 06/30/21 16:48 RMA [id number]) Nutrition Malnutrition Evidence of Malnutrition Exists No Recommendation Dietitian Recommendations/Changes Continue cardiac, carbohydrate controlled diet. D/C glucerna 120mL PO 4x/day at [facility] since intake is good at meals. Lab / Micro Data Result Diagrams: 07/02/21 05:40 07/02/21 05:40 Labs: Laboratory Results - last 24 hr 07/01/21 11:27: POC Glucose 277 H 07/01/21 16:27: POC Glucose 260 H 07/01/21 21:09: POC Glucose 278 H 07/01/21 22:28: Vancomycin Trough 23.2 H 07/02/21 05:40: WBC 14.5 H, RBC 3.39 L, Hgb 9.9 L, Hct 31.7 L, MCV 93.5, MCH 29.2, MCHC 31.2 L, RDW Std Deviation 44.6 H, RDW Coeff of James 13.0, Plt Count 205, MPV 10.8, Immature Gran % (Auto) 0.500, Neut % (Auto) 80.0 H, Lymph % (Auto) 11.3 L, [place] % (Auto) 6.8, Eos % (Auto) 0.8, Baso % (Auto) 0.6, Absolute Neuts (auto) 11.6 H, Absolute Lymphs (auto) 1.64, Nucleated RBC % 0 07/02/21 05:40: Sodium 142, Potassium 4.2, Chloride 108 H, Carbon Dioxide 29.0, Anion Gap 5, BUN 27 H, Creatinine 1.36 H, Estim Creat Clear Calc 58.15, Est GFR (MDRD) Af Amer 68, Est GFR (MDRD) Non-Af 56 L, BUN/Creatinine Ratio 19.9, Glucose 121 H, Calcium 8.5 07/02/21 06:54: POC Glucose 124 H Micro: Microbiology 06/30/21 07:30 Urine, Clean Catch Urine Culture - Final Staphylococcus aureus 06/30/21 11:20 Mucosa - Nasopharyngeal Respiratory Panel (PCR) - Final 06/30/21 07:30 Urine, Clean Catch Legionella Antigen - Final 06/30/21 07:30 Urine, Clean Catch Streptococcus pneumoniae Antigen (M - Final Radiography Diagnostic Testing: Radiology Impression Chest Fluoroscopy 06/30/21 15:15 IMPRESSION: Mild eventration of the right hemidiaphragm projections well during the sniff test. Electronically Signed: Crow Hartley DO at 8:56 EDT Tel , Service support , Physical Exam Const alert, oriented x3 and no apparent distress Constitutional Narrative: Appears older than stated age General Appearance: anxious; Negative for in distress Nutritional Appearance: obese HEENT normocephalic, head/scalp atraumatic, moist oral mucous membranes and oropharynx normal Eyes conjunctivae normal and no scleral icterus Neck full ROM and No nuchal rigidity Lymph Lymphatic: no lymphadenopathy noted Chest inspection of chest normal Chest Narrative: Slight decreased expansion of the right chest noted Chest: Negative for symmetrical chest wall rise Resp Auscultation: diminished lung sounds; Negative for rales, rhonchi or wheezes Cardio regular rate, regular rhythm, S1 normal heart sound, S2 normal heart sound, no murmurs, no rub and no gallops GI normal to inspection, nondistended, normoactive bowel sounds no CVA tenderness Extremity General Extremity: edema bilateral (Trace bilateral lower) Skin no rashes or lesions noted Neuro oriented x3, CN's II-XII intact bilaterally and no focal motor deficits Psych Mood & Affect: anxious Charges/Coding Visit Charges Inpatient E&M: 28704 Subs Hosp L2
[2021-07-02] MEDS: Furosemide 40 MG Tablet PO (10:35)
[2021-07-02] MEDS: Enoxaparin 40 MG/0.4 ML Syringe SC (10:35)
[2021-07-02] MEDS: guaiFENesin 1,200 MG Tablet 1200 MG PO (10:35)
[2021-07-02] MEDS: Isosorbide Mononitrate 30 MG Tablet PO (10:35)
[2021-07-02] MEDS: Finasteride 5 MG Tablet PO (10:35)
[2021-07-02] MEDS: Pregabalin 75 MG Capsule PO (10:35)
[2021-07-02] MEDS: FLUoxetine 20 MG Capsule PO (10:35)
[2021-07-02] MEDS: Clopidogrel Bisulfate 75 MG Tablet PO (10:35)
[2021-07-02] MEDS: Pantoprazole Sodium 20 MG Tablet PO (10:35)
[2021-07-02] MEDS: Carvedilol 12.5 MG Tablet PO (10:35)
[2021-07-02] MEDS: Clotrimazole 1 APPLIC Tube TOPICAL (10:36)
--- NOTE | 2021-07-02 10:39 | CASEMGMT ---
Addendum entered by Becca Christensen 07/02/21 11:54: Jul[place] [facility] [place], voices understanding. Yessica JENKINS CM Addendum entered by Becca Christensen 07/02/21 11:20: Pt qualified for 3L w/ exertion and new order to be [place] [facility] [place] obtained. CM to follow. Yessica JENKINS CM Original Note: Per Juliana at [facility] pt's order is for 2L w/ exertion only. Dodie JENKINS updated and pt to be tested on room air at rest and 2L w/ exertion. Pt states he would like to go home with resumption of HHC and speech therapy to be added. ZULMA order placed and message left with Jessica at [facility] in regards to same. CM to follow. Yessica JENKINS CM
[2021-07-02] MEDS: Spironolactone 25 MG Tablet PO (10:44)
[2021-07-02] MEDS: Losartan Potassium 100 MG Tablet PO (10:48)
[2021-07-02] MEDS: Insulin Lispro 100 UNIT/ML INSULN.PEN SC (10:48)
--- NOTE | 2021-07-02 10:56 | DCINST_ITS ---
Discharge Instructions Diet Discharge Diet: - (Small bites, small sips,1 step at a time, slow rate of intake. Sit upright and remain upright for 30 to 60 minutes for all oral intake.) Activity Discharge Activity: May Not Drive Weight Bearing Status: Weight bearing as tolerated Dressing / Incision Call your doctor if you observe: Fever of 101 or Higher, Coldness, Increased Pain, Numbness or Tingling, Change in Color, Inability to urinate, Inability to have a bowel movement, Shortness of breath, Dizziness, Fainting spells, Swelling in the ankles, Chest pain, Prolonged hiccupping, Increased palpitations (irregular heartbeat), Calf discomfort and Uncontrolled pain Follow Up Care Please Follow Up With: Rosendo Foreman MD When: In 2 weeks Test Results: Test results from this visit will be discussed in further detail at your follow-up appointment, if applicable. Discharge Plan Admission Admit Date/Time: 06/30/21 10:38 Primary Reason for Your Visit: Nonresolving pneumonia, silent aspiration, bronch iectasis Attending Provider: Casa Helton Primary Care Provider: Care Physician,No Primary Consulting Providers: Raheem Corona ; Rosendo Foreman ; Stefano Lanier ; Sonal George SAP PROJECT MANAGER Instructions Patient Instructions: ED Chest Pain, Noncardiac Discharge Orders/Prescriptions Prescriptions: New clotrimazole 1 % cream 1 applic topical BID Qty: 30 RF: 2 spironolactone 25 mg Tablet 12.5 mg PO DAILY Qty: 30 RF: 0 levofloxacin 500 mg tablet 500 mg PO DAILY Qty: 5 RF: 0 Continued fluoxetine 40 MG capsule 40 mg PO DAILY RF: 0 atorvastatin 80 MG tablet 80 mg PO QHS RF: 0 carvedilol 25 MG tablet 25 mg PO BID RF: 0 isosorbide mononitrate 30 MG tablet extended release 24 hr 30 mg PO DAILY RF: 0 clopidogrel 75 MG tablet 75 mg PO DAILY RF: 0 acetaminophen 500 MG tablet 1,000 mg PO BID PRN PRN (Reason: Pain 1-10 Or Fever) RF: 0 pantoprazole 20 MG tablet 20 mg PO DAILY RF: 0 alprazolam 0.5 MG tablet 0.5 mg PO BID RF: 0 nitroglycerin 0.4 MG tablet, sublingual 0.4 mg SL Q5M PRN (Reason: Chest Pain) RF: 0 buspirone 7.5 MG tablet 7.5 mg PO TID RF: 0 losartan 100 MG tablet 100 mg PO DAILY RF: 0 finasteride 5 MG tablet 5 mg PO DAILY RF: 0 insulin lispro 100 UNIT/ML insulin pen See Protocol unit SQ TIDCM RF: 0 insulin detemir U-100 100 UNIT/ML insulin pen 28 unit SQ QHS RF: 0 pregabalin [Lyrica] 75 mg Capsule 75 mg PO BID RF: 0 exenatide microspheres 2 mg/0.65 mL Pen Injector 2 mg SUBCUT SA RF: 0 nystatin [Nyamyc] 100,000 unit/gram Powder 1 applic topical BID Qty: 0 RF: 0 furosemide 40 MG tablet 40 mg PO DAILY Qty: 0 RF: 0 trazodone 100 MG tablet 100 mg PO QHS Qty: 0 RF: 0 fluoxetine 20 MG capsule 20 mg PO DAILY Qty: 0 RF: 0 Referrals / Follow Up: Rosendo Foreman MD [STAFF PHYSICIAN] - Within 2 Weeks (With Lucas Mcdonald NP) Raheem Corona MD [STAFF PHYSICIAN] - Within 1 Month (As needed for antibiotic issues regarding pneumonia/bronchiectasis) Care Physician,No Primary [Primary Care Provider] - Within 1 Week Disposition Disposition (needs filled in before D/C Order can be placed): Home, Self Care
--- NOTE | 2021-07-02 11:11 | DS.PCM_ITS ---
Providers Date of Admission: 06/30/21 Primary Care Physician: Suzanna Primary Care Phys Consultations 06/30/21 10:56 Consult: Infectious Disease Routine Consulting Provider: Rea Corona Reason for Consult: Had pneumonia for 1 month. D/C on 06/28. EMERGENT Consult: No Notified: Yes Date Notified: 06/30/21 Time Notified: 11:00 Method of Notification: Text 06/30/21 11:53 Consult: Central Office Repairer Supervisor / Pulmonary Medicine Routine Consulting Provider: Pulmonary Medicine matheus [place] Reason for Consult: Non resolving, might have structural lung disease EMERGENT Consult: No Notified: Yes Date Notified: 06/30/21 Time Notified: 11:53 Method of Notification: Verbal Reason For Visit: COPD EXCERBATION,HYPOXIA, LEUKOCYTOSIS Diagnosis Discharge Diagnosis (1) Pneumonia: Status: Acute Code(s): J18.9 - Pneumonia, unspecified organism Qualifiers: Laterality: right Lung location: lower lobe of lung Pneumonia type: due to unspecified organism Qualified Code(s): J18.9 - Pneumonia, unspecified organism (2) CELESTE (acute kidney injury): Status: Acute Code(s): N17.9 - Acute kidney failure, unspecified (3) Bronchiectasis with (acute) exacerbation: Status: Acute Code(s): J47.1 - Bronchiectasis with (acute) exacerbation Medications at Discharge Home Medications acetaminophen 1,000 mg PO BID PRN PRN 02/11/21 alprazolam 0.5 mg PO BID 02/11/21 atorvastatin 80 mg PO QHS 02/11/21 buspirone 7.5 mg PO TID 02/11/21 carvedilol 25 mg PO BID 02/11/21 clopidogrel 75 mg PO DAILY 02/11/21 finasteride 5 mg PO DAILY 02/11/21 fluoxetine 40 mg PO DAILY 02/11/21 insulin detemir U-100 28 unit SQ QHS 02/11/21 insulin lispro See Protocol SQ TIDCM 02/11/21 isosorbide mononitrate 30 mg PO DAILY 02/11/21 losartan 100 mg PO DAILY 02/11/21 nitroglycerin 0.4 mg SL Q5M PRN 02/11/21 pantoprazole 20 mg PO DAILY 02/11/21 pregabalin [Lyrica] 75 mg PO BID 05/13/21 exenatide microspheres 2 mg SUBCUT SA 06/18/21 furosemide 40 mg PO DAILY #0 tab 06/28/21 nystatin [Nyamyc] 1 applic TOPICAL BID #0 g 06/28/21 clotrimazole 1 applic TOPICAL BID #30 g 07/02/21 fluoxetine 20 mg PO DAILY #0 cap 07/02/21 levofloxacin 500 mg PO DAILY #5 tab 07/02/21 spironolactone 12.5 mg PO DAILY #30 tab 07/02/21 trazodone 100 mg PO QHS #0 tab 07/02/21 Hospital Course Summary of Care Provided Hospital Course: REA HANNA, is a 61 M who was just discharged on 06/28 was brought by EMS for shortness of breath, fever with chills; temperature 101.7 ?F with mild cough and CT chest consistent with a right upper and lower lobe pneumonia 1. SIRS (tachycardia, tachypnea, fever with leukocytosis, with neutrophilia) with sepsis due to right multifocal pneumonia, bronchiectasis exacerbation with chronic hypoxic respiratory failure: Patient is being admitted in PCU. Continue bronchodilator, incentive spirometry and chest physiotherapy/acapella. ABG 7.4 on 4 L of oxygen. Lactic acid is normal. Seen by compressed air pile driver operator and discussed with him. Seen by ID. The patient was treated with vancomycin and Zosyn and bronchodilator, chest physiotherapy and incentive spirometry. Continue bronchodilator. Final urine culture shows staph aureus 11,000- 25,000. UA 0 WBC, negative nitrite and LE. UTI ruled out. Respiratory panel negative. CT chest reviewed with compressed air pile driver operator shows bronchiectasis, elevation of right hemidiaphragm. 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 Patient is discharged on 5 more days of Levaquin prescription to complete a total of 8 days of antibiotics. Follow-up in pulmonary clinic. 2. Recent CELESTE with hypotension, on chronic CKD stage IIIa: Continue baseline IV fluid. Monitor kidney function electrolytes. Initially blood pressure was elevated but is controlled. 3. Heart failure of unclear type and etiology: Patient on Plavix, statin, isosorbide. Continue Spironolactone, losartan and Lasix. Prescription given for low-dose spironolactone 12.5 mg daily 4. Coronary artery disease, PAD: Patient had cardiac stent and bilateral lower extremity, 2 stents on each side. Right foot Symes amputation 5. Diabetes mellitus type 2 with peripheral neuropathy: Glucose is controlled. Accu-Cheks before meals and at bedtime and patient on Lantus. Continue Lyrica. 6. Other comorbidities include hypertension, anxiety and depression, chronic normocytic anemia, obesity, GERD, obstructive sleep apnea: Low functional capacity. PT and OT ordered. Home medication reconciliation done VTE prophylaxis: On Lovenox 40 mg subcu day Living will/advanced directive/end of life care: Patient does have living will or advanced directive. Full code. Discharge medication reconciliation done. Discharge follow-up instructions completed. Discharge process discussed with the patient and all questions were answered to patient's satisfaction. Discharge home Total time spent, exact 35 minutes on discharge meds reconciliation, examination, coordination of care with nurses and ancillary staff, review of imaging and blood test and discussion with the patient on follow-up instructions Physical Exam Narrative Patient is not short of breath. Found to have silent aspiration by speech therapist. No fever or chills for about 48 hours Physical exam General: Alert, Oriented x3, Cooperative HEENT: Atraumatic, PERRLA, EOMI, Normocephalic Oral: No Gingival or Mucosal Lesions/ Ulcerations Neck: Supple, No JVD, Negative Carotid Bruits Lungs: Air entry diminished on right lung base. Fine right lung base crepita tion Cardiovascular: Sinus rhythm, PVCs, normal S1, Normal S2, No murmurs Abdomen: Bowel Sounds Present, Soft, Non Tender, Non-Distended : Urinary incontinence. No suprapubic tenderness. Extremities: Improvement bilateral ankle edema, Capillary Refill Less than 3 Seconds Skin: Fungal rash, tinea improving Musculoskeletal: Right metatarsal foot amputation. ROM restricted. Uses walker or motorized scooter Neurological: Cranial nerves II-XII grossly intact, weakness of right lower extremity more than left lower extremity at major joints. DTR 2+/4 Psych/Mental Status: Normal Affect, Appropriate. Medical Records Data Medical Nutrition Assessment Dietitian: Nutrition Therapy Diagnosis Start: 06/30/21 11:35 Freq: Status: Active Protocol: Document 06/30/21 16:47 RMA (Rec: 06/30/21 16:48 RMA [id number]) Nutrition Malnutrition Evidence of Malnutrition Exists No Recommendation Dietitian Recommendations/Changes Continue cardiac, carbohydrate controlled diet. D/C glucerna 120mL PO 4x/day at [facility] since intake is good at meals. Weight / BMI Weight Weight: 262 lb 5.601 oz Body Mass Index (BMI) 37.6 ABG / Lab / Microbiology Data Result Diagrams: 07/02/21 05:40 07/02/21 05:40 Laboratory: Laboratory Results - last 24 hr 07/01/21 11:27: POC Glucose 277 H 07/01/21 16:27: POC Glucose 260 H 07/01/21 21:09: POC Glucose 278 H 07/01/21 22:28: Vancomycin Trough 23.2 H 07/02/21 05:40: WBC 14.5 H, RBC 3.39 L, Hgb 9.9 L, Hct 31.7 L, MCV 93.5, MCH 29.2, MCHC 31.2 L, RDW Std Deviation 44.6 H, RDW Coeff of James 13.0, Plt Count 205, MPV 10.8, Immature Gran % (Auto) 0.500, Neut % (Auto) 80.0 H, Lymph % (Auto) 11.3 L, [place] % (Auto) 6.8, Eos % (Auto) 0.8, Baso % (Auto) 0.6, Absolute Neuts (auto) 11.6 H, Absolute Lymphs (auto) 1.64, Nucleated RBC % 0 07/02/21 05:40: Sodium 142, Potassium 4.2, Chloride 108 H, Carbon Dioxide 29.0, Anion Gap 5, BUN 27 H, Creatinine 1.36 H, Estim Creat Clear Calc 58.15, Est GFR (MDRD) Af Amer 68, Est GFR (MDRD) Non-Af 56 L, BUN/Creatinine Ratio 19.9, Glucose 121 H, Calcium 8.5 07/02/21 06:54: POC Glucose 124 H Microbiology: Microbiology 06/30/21 07:10 Blood Culture (Wb) - Left Hand Blood Culture - Preliminary No growth in 48 hours. 06/30/21 07:45 Blood Culture (Wb) - Anticubital Left Blood Culture - Preliminary No growth in 48 hours. 06/30/21 07:30 Urine, Clean Catch Urine Culture - Final Staphylococcus aureus 06/30/21 11:20 Mucosa - Nasopharyngeal Respiratory Panel (PCR) - Final 06/30/21 07:30 Urine, Clean Catch Legionella Antigen - Final 06/30/21 07:30 Urine, Clean Catch Streptococcus pneumoniae Antigen (M - Final D/C Instructions Discharge Diet: - (Small bites, small sips,1 step at a time, slow rate of intake. Sit upright and remain upright for 30 to 60 minutes for all oral intake.) Weight Bearing Status: Weight bearing as tolerated Call your doctor if you observe: Fever of 101 or Higher, Coldness, Increased Pain, Numbness or Tingling, Change in Color, Inability to urinate, Inability to have a bowel movement, Shortness of breath, Dizziness, Fainting spells, Swelling in the ankles, Chest pain, Prolonged hiccupping, Increased palpitations (ir regular heartbeat), Calf discomfort and Uncontrolled pain Please Follow Up With: Rosendo Foreman MD When: In 2 weeks Meaningful Use Info Meaningful Use Diagnoses (Choose all that apply): None applicable Discharge Plan Admission Admit Date/Time: 06/30/21 10:38 Primary Reason for Your Visit: Nonresolving pneumonia, silent aspiration, bronchiectasis Attending Provider: Casa Helton Primary Care Provider: Care Physician,No Primary Consulting Providers: Rea Corona ; Rosendo Foreman ; Stefano Lanier ; Sonal George LEARNING SUPPORT SERVICES DIRECTOR Instructions Patient Instructions: ED Chest Pain, Noncardiac Discharge Orders/Prescriptions Prescriptions: New clotrimazole 1 % cream 1 applic topical BID Qty: 30 RF: 2 spironolactone 25 mg Tablet 12.5 mg PO DAILY Qty: 30 RF: 0 levofloxacin 500 mg tablet 500 mg PO DAILY Qty: 5 RF: 0 Continued fluoxetine 40 MG capsule 40 mg PO DAILY RF: 0 atorvastatin 80 MG tablet 80 mg PO QHS RF: 0 carvedilol 25 MG tablet 25 mg PO BID RF: 0 isosorbide mononitrate 30 MG tablet extended release 24 hr 30 mg PO DAILY RF: 0 clopidogrel 75 MG tablet 75 mg PO DAILY RF: 0 acetaminophen 500 MG tablet 1,000 mg PO BID PRN PRN (Reason: Pain 1-10 Or Fever) RF: 0 pantoprazole 20 MG tablet 20 mg PO DAILY RF: 0 alprazolam 0.5 MG tablet 0.5 mg PO BID RF: 0 nitroglycerin 0.4 MG tablet, sublingual 0.4 mg SL Q5M PRN (Reason: Chest Pain) RF: 0 buspirone 7.5 MG tablet 7.5 mg PO TID RF: 0 losartan 100 MG tablet 100 mg PO DAILY RF: 0 finasteride 5 MG tablet 5 mg PO DAILY RF: 0 insulin lispro 100 UNIT/ML insulin pen See Protocol unit SQ TIDCM RF: 0 insulin detemir U-100 100 UNIT/ML insulin pen 28 unit SQ QHS RF: 0 pregabalin [Lyrica] 75 mg Capsule 75 mg PO BID RF: 0 exenatide microspheres 2 mg/0.65 mL Pen Injector 2 mg SUBCUT SA RF: 0 nystatin [Nyamyc] 100,000 unit/gram Powder 1 applic topical BID Qty: 0 RF: 0 furosemide 40 MG tablet 40 mg PO DAILY Qty: 0 RF: 0 trazodone 100 MG tablet 100 mg PO QHS Qty: 0 RF: 0 fluoxetine 20 MG capsule 20 mg PO DAILY Qty: 0 RF: 0 Referrals / Follow Up: Rosendo Foreman MD [STAFF PHYSICIAN] - 07/24/21 10:45 am (With Lucas Mcdonald NP) Rea Corona MD [STAFF PHYSICIAN] - 08/06/21 2:15 pm (Your appointment will be at the [facility] ) Care Physician,No Primary [Primary Care Provider] - Within 1 Week Disposition Disposition (needs filled in before D/C Order can be placed): Home, Self Care Charges/Coding Visit Charges Inpatient E&M: 13451 Disch Hosp
[2021-07-02 11:26] LABS: Bedside Glucose 181 mg/dL (70-110)
[2021-07-02 11:27] LABS: Vancomycin, Random Level 19.3 ug/mL (0.0-15.0)
--- NOTE | 2021-07-02 11:41 | CASEMGMT ---
Addendum entered by Becca Christensen 07/02/21 13:07: Per palliative, new referral to be sent and they will f/u. Order placed in chart. Yessica JENKINS CM Original Note: Message left with palliative care to see if pt signed with palliative after previous referral. Yessica JENKINS CM
--- NOTE | 2021-07-02 13:31 | PHA.DC.MR ---
Pharmacy Service has performed discharge medication reconciliation for this patient. The patient's discharge medication list was reviewed for discrepancies and discrepancies were resolved. Medication education papers prepared. 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 Home Medications acetaminophen 1,000 mg PO BID PRN PRN 02/11/21 alprazolam 0.5 mg PO BID 02/11/21 atorvastatin 80 mg PO QHS 02/11/21 buspirone 7.5 mg PO TID 02/11/21 carvedilol 25 mg PO BID 02/11/21 clopidogrel 75 mg PO DAILY 02/11/21 finasteride 5 mg PO DAILY 02/11/21 fluoxetine 40 mg PO DAILY 02/11/21 insulin detemir U-100 28 unit SQ QHS 02/11/21 insulin lispro See Protocol SQ TIDCM 02/11/21 isosorbide mononitrate 30 mg PO DAILY 02/11/21 losartan 100 mg PO DAILY 02/11/21 nitroglycerin 0.4 mg SL Q5M PRN 02/11/21 pantoprazole 20 mg PO DAILY 02/11/21 pregabalin [Lyrica] 75 mg PO BID 05/13/21 exenatide microspheres 2 mg SUBCUT SA 06/18/21 furosemide 40 mg PO DAILY #0 tab 06/28/21 nystatin [Nyamyc] 1 applic TOPICAL BID #0 g 06/28/21 clotrimazole 1 applic TOPICAL BID #30 g 07/02/21 fluoxetine 20 mg PO DAILY #0 cap 07/02/21 levofloxacin 500 mg PO DAILY #5 tab 07/02/21 spironolactone 12.5 mg PO DAILY #30 tab 07/02/21 trazodone 100 mg PO QHS #0 tab 07/02/21
--- NOTE | 2021-07-03 14:32 | CASEMGMT ---
ALICE PHOENIX Discharge Follow-up Phone Call: YOUSIF: 14 Strata: 4 Call Date: 07/03/21 Discharge Date: 07/02/21 Time of Call: 1428 Duration: 5 min Admitting Diagnosis: COPD exacerbation ALICE PHOENIX completed follow-up phone call after recent hospitalization. Patient states he is doing better. Patient states he has been monitoring his oxygen levels and wearing his oxygen. Patient was able to fill prescriptions without any issues. Patient has follow-up appts scheduled. Patient had no further questions or concerns at this time.
== END 2021-07-02 13:28 | disposition home or self-care (01) | DRG 871 ==
LOC: ED 07:48 → PCU 09:53
PROVIDERS: Internal Medicine Infectious Disease; Admitting Provider Internal Medicine; Emergency Provider Student in an Organized Health Care Education/Training Program; Visit Provider Internal Medicine
DX: A41.9 Sepsis, unspecified organism (principal); J18.9 Pneumonia, unspecified organism; J47.0 Bronchiectasis with acute lower respiratory infection; J47.1 Bronchiectasis with (acute) exacerbation; J96.11 Chronic respiratory failure with hypoxia; I13.0 Hypertensive heart and chronic kidney disease with heart failure and stage 1 through stage 4 chronic kidney disease, or unspecified chronic kidney disease; I50.32 Chronic diastolic (congestive) heart failure; R65.20 Severe sepsis without septic shock; N18.31 Chronic kidney disease, stage 3a; K21.9 Gastro-esophageal reflux disease without esophagitis; Y95 Nosocomial condition; D64.9 Anemia, unspecified; E11.22 Type 2 diabetes mellitus with diabetic chronic kidney disease; E11.42 Type 2 diabetes mellitus with diabetic polyneuropathy; E11.51 Type 2 diabetes mellitus with diabetic peripheral angiopathy without gangrene; E66.9 Obesity, unspecified; H54.62 Unqualified visual loss, left eye, normal vision right eye; F32.9 Major depressive disorder, single episode, unspecified; F41.9 Anxiety disorder, unspecified; G43.909 Migraine, unspecified, not intractable, without status migrainosus; G47.33 Obstructive sleep apnea (adult) (pediatric); I25.10 Atherosclerotic heart disease of native coronary artery without angina pectoris; I25.2 Old myocardial infarction; Z95.5 Presence of coronary angioplasty implant and graft; Z68.39 Body mass index [BMI] 39.0-39.9, adult; Z87.01 Personal history of pneumonia (recurrent); Z87.442 Personal history of urinary calculi; Z79.4 Long term (current) use of insulin; Z79.899 Other long term (current) drug therapy; Z99.81 Dependence on supplemental oxygen; Z87.448 Personal history of other diseases of urinary system; I95.9 Hypotension, unspecified; N40.0 Benign prostatic hyperplasia without lower urinary tract symptoms
CPT/HCPCS: 36415; 36600; 71045; 71046; 71250; 74230; 76000; 80048; 80053; 80202; 80307; 81001; 82803; 82962; 83605; 83880; 84145; 84484; 85025; 85610; 85730; 87040; 87070; 87077; 87086; 87088; 87186; 87205; 87449; 87633; 87635; 87641; 92526; 92610; 92611; 93005; 94640; 94667; 94668; 96360; 96361; 96372; 97110; 97162; 97167; 97530; 97535; 97802; 99218; 99251; 99285; J7030; J7040; J7050; U0005; A4216; G0378; G0463; U0003

== ENCOUNTER 2021-07-10 14:16 | Inpatient (IN) | payer MEDICARE, MEDICAID, SELFPAY ==
[2021-07-02 14:37] VITALS: BMI 37.6
[2021-07-10] VITALS (8 sets, daily range): BP systolic 85–114; BP diastolic 61–97; PULSE 77–84; RESP 10–18; TEMP 36.4–36.8; O2SAT 94–100; BMI 38.6
[2021-07-10] MEDS: 0.9% Normal Saline 1,000 ML 1000 ML IV (14:20)
--- NOTE | 2021-07-10 14:31 | RAD_ITS ---
HISTORY: weakness. TECHNIQUE: XR Chest 1 View. # of images incl. paperwork: 1. COMPARISON: 06/30/2021. FINDINGS: CARDIOMEDIASTINAL STRUCTURES: Cardiac silhouette not and mediastinal contour unchanged with calcification of the aortic knob. LUNGS: Elevation of the right hemidiaphragm. Increased bibasilar opacities. PLEURA: No pleural effusion or pneumothorax. OSSEOUS STRUCTURES: Degenerative change. RAD/Chest 1 View (Portable) IMPRESSION: Bibasilar opacities concerning for pneumonia. at 1534 Reported and signed by: Dulce Brand MD Electronically Signed: Dulce Brand MD at 15:33 EDT Tel , Service support ,
--- NOTE | 2021-07-10 14:31 | EKG12_ITS ---
Test Reason : Blood Pressure : / mmHG Vent. Rate : 077 BPM Atrial Rate : 077 BPM P-R Int : 230 ms QRS Dur : 088 ms QT Int : 386 ms P-R-T Axes : 088 038 057 degrees QTc Int : 436 ms Sinus rhythm with 1st degree A-V block Otherwise normal ECG Confirmed by ROLAND JOHNS, FAUSTINA ([id number]), metropolitan editor SHARAN DOE ([id number]) on 07/15/2021 8:42:40 AM Referred By: RADHA Confirmed By:FAUSTINA WATKINS MD
--- NOTE | 2021-07-10 14:34 | EX.ED.DYSGE1 ---
HPI History of Present Illness Chief Complaint: General Illness Detail of Chief Complaint: Fall with lethargy and hypotension today Informant: patient and EMS Narrative Narrative: Patient presents to the emergency department via EMS from home. He lives with his fianc?e. Patient apparently had a fall off the toilet today and bumped his head but does not think he is injured. Denies headache. EMS was called this patient more lethargic. He was noted to be hypotensive and elevated blood sugar over 400. Patient states has been taking his insulin. Patient had recent admission for COPD. He is normally on 2 L O2 at home. Patient has history of a cardiac stent but denies any chest pain. He denies any shortness of breath out of the ordinary. He does complain of some lightheadedness with standing and trying to walk. Prior similar symptoms: Yes PFSH PFSH Medical History Amputation of one or more toes Anxiety CAD (coronary artery disease) Chest pain Congestive heart failure (CHF) COPD (chronic obstructive pulmonary disease) CPAP (continuous positive airway pressure) dependence Depression Diabetes GERD (gastroesophageal reflux disease) Hypertension Kidney stones Kidney stones Migraines Myocardial infarct Non-smoker On home oxygen therapy PAD (peripheral artery disease) Pulmonary nodule, left Severe sepsis Sleep apnea Vision loss of left eye Home Medications acetaminophen 1,000 mg PO BID PRN PRN 02/11/21 [History Last Taken 06/16/21] alprazolam 0.5 mg PO BID 02/11/21 [History Last Taken 06/17/21] atorvastatin 80 mg PO QHS 02/11/21 [History Last Taken 06/17/21] buspirone 7.5 mg PO TID 02/11/21 [History Last Taken 06/17/21] carvedilol 25 mg PO BID 02/11/21 [History Last Taken 06/17/21] clopidogrel 75 mg PO DAILY 02/11/21 [History Last Taken 06/17/21] finasteride 5 mg PO DAILY 02/11/21 [History Last Taken 06/17/21] fluoxetine 40 mg PO DAILY 02/11/21 [History Last Taken 06/17/21] insulin detemir U-100 28 unit SQ QHS 02/11/21 [History Last Taken 06/26/21] insulin lispro See Protocol SQ TIDCM 02/11/21 [History Last Taken 06/17/21] isosorbide mononitrate 30 mg PO DAILY 02/11/21 [History Last Taken 06/17/21] losartan 100 mg PO DAILY 02/11/21 [History Last Taken 06/17/21] nitroglycerin 0.4 mg SL Q5M PRN 02/11/21 [History Last Taken 02/08/21] pantoprazole 20 mg PO DAILY 02/11/21 [History Last Taken 06/17/21] pregabalin [Lyrica] 75 mg PO BID 05/13/21 [History Last Taken 06/17/21] exenatide microspheres 2 mg SUBCUT SA 06/18/21 [History Last Taken 06/21/21] furosemide 40 mg PO DAILY #0 tab 06/28/21 [Rx Last Taken 06/17/21] nystatin [Nyamyc] 1 applic TOPICAL BID #0 g 06/28/21 [Rx Last Taken Unknown] clotrimazole 1 applic TOPICAL BID #30 g 07/02/21 [Rx Last Taken Unknown] fluoxetine 20 mg PO DAILY #0 cap 07/02/21 [Rx Last Taken 06/17/21] levofloxacin 500 mg PO DAILY #5 tab 07/02/21 [Rx Last Taken Unknown] spironolactone 12.5 mg PO DAILY #30 tab 07/02/21 [Rx Last Taken Unknown] trazodone 100 mg PO QHS #0 tab 07/02/21 [Rx Last Taken 06/17/21] Allergy/AdvReac Type Severity Reaction Status Date / Time allopurinol AdvReac Vomiting Verified 06/30/21 07:06 Influenza Virus Vaccines AdvReac Vomiting Verified 06/30/21 07:06 pneumococcal vaccine AdvReac Vomiting Verified 06/30/21 07:06 Family History Mother Diabetes Heart disease CHF Father Heart disease [place]/CAD Myocardial infarction Surgical History H/O lithotripsy History of ankle surgery History of coronary artery stent placement Hx of toe surgery S/P peripheral artery angioplasty with stent placement S/P thyroid surgery Social History household members: spouse housing: apartment Smoking Status: Never smoker alcohol intake: never substance use type: does not use ROS ROS ED ROS Narrative Generalized weakness, lightheadedness Constitutional Constitutional ED: Reports systems reviewed and no addt'l complaints, except as documented; Denies body ache(s), change in weight or chills Eyes Eyes: Denies acute decrease in peripheral vision, change in vision, double vision or loss of vision ENT ENT ED: Reports none; Denies ear pain, lip swelling, loss taste/smell, neck pain, otalgia or sore throat Cardiovascular Cardiovascular: Reports none; Denies abdominal pain, chest pain with activity, leg edema, lightheadedness, palpitations, rapid heart rate or syncope Respiratory/Chest Respiratory/Chest: Reports none; Denies change in mental status, dry cough, dyspnea, hemoptysis, shortness of breath at rest or shortness of breath with exertion Gastrointestinal Gastrointestinal: Reports none; Denies abdominal pain, change in stool character, diarrhea, hematemesis, hematochezia, melena, rectal bleeding or vomiting Genitourinary Genitourinary ED: Reports none; Denies abdominal discomfort, anuria, dysuria, genital pain or polyuria Musculoskeletal Musculoskeletal: Reports none; Denies arthralgias, back pain, difficulty walking, extremity pain, muscle weakness or myalgias Integumentary Reports none; Denies abscess or rash Neurologic Neurologic: Reports none; Denies abnormal gait, confusion, focal weakness, frequent falls, headache(s), loss of vision, numbness, paresthesias, radicular pain, vertigo or weakness Psychiatric Psychiatric: Reports systems reviewed and no addt'l complaints, except as documented and none; Denies behavioral changes, confusion, difficulty concentrating, hallucinations, suicidal ideation, tactile hallucinations or visual hallucinations Endocrine Endocrinology: Denies none, cold intolerance, excessive sweating, fatigue or heat intolerance Hematologic/Lymphatic Hematologic/Lymphatic: Reports none; Denies anemia, easy bleeding or easy bruising Allergic/Immunologic Allergic/Immunologic ED: Denies as per HPI, none, lip swelling, mouth swelling, throat swelling, tongue swelling or hives EXAM Physical Exam Const Vital Signs: 07/10/21 14:17 07/10/21 14:20 07/10/21 14:21 Temperature 97.9 F 97.6 F L Temperature Source Oral Oral Pulse Rate 84 81 Respiratory Rate 13 12 Respiratory Effort Normal Non-Labored Respiratory Pattern Normal Blood Pressure 85/61 L 85/61 L Blood Pressure Mean 69 69 Pulse Ox 95 97 Oxygen Delivery Method Nasal Cannula Nasal Cannula Oxygen Flow Rate (L/min) 2 2 07/10/21 14:29 07/10/21 15:16 07/10/21 16:00 Temperature 98.2 F 98.1 F Temperature Source Oral Temporal Pulse Rate 81 77 77 Respiratory Rate 17 12 10 L Respiratory Effort Respiratory Pattern Blood Pressure 110/76 110/97 H 114/66 Blood Pressure Mean 87 101 82 Pulse Ox 98 100 100 Oxygen Delivery Method Nasal Cannula Nasal Cannula Nasal Cannula Oxygen Flow Rate (L/min) 2 2 2 Positive well nourished and well developed General Appearance ED: well developed and NAD HEENT Reports TM's clear and moist mucous membranes normocephalic and atraumatic; Negative for trauma or tenderness Tympanic Membrane ED: Yes TM's clear Eyes PERRL and EOMs intact bilaterally General Eye ED: Negative for pale conjunctiva or scleral icterus Neck no lymphadenopathy, supple and no JVD General: Negative for tenderness Chest Wall inspection of chest normal and palpation of chest normal Chest: Negative for tenderness Resp normal respiratory effort and clear to auscultation bilaterally Effort and Inspection: Negative for respiratory distress or pain with movement Auscultation: rhonchi and wheezes; Negative for diminished lung sounds Cardio regular rate, regular rhythm, S1 normal heart sound, S2 normal heart sound and no murmurs Peripheral Pulses: pulses 2+ throughout GI normal to inspection, nondistended, normoactive bowel sounds, soft to palpation, non-tender, non-distended and no masses Back/Spine no CVA tenderness and no thoracic nor lumbar tenderness Extremity normal to inspection General Extremety ED: Negative for edema General Extremity: Negative for edema Neuro oriented x3, CN's II-XII intact bilaterally, no sensory deficits noted and gait normal Sensorium / Orientation: awake, alert, oriented to person, oriented to place and oriented to time Motor Exam: strength 5/5 throughout and strength abnormal Psych mental status grossly normal Skin no rashes or lesions noted and no wounds MDM MDM MDM Narrative Medical decision making narrative: Patient's fianc? arrived and gives more history. Apparently patient fell yesterday as well. This morning the visiting nurse noted that he had a low blood pressure of 105 systolic. He had an episode of severe weakness where he had a hard time standing and walking today. Case will be discussed with hospitalist evaluate patient for admission. Lab Data Attestation: I reviewed the patient's lab results. Labs: Laboratory Results - last 24 hr 07/10/21 07/10/21 07/10/21 15:00 15:00 15:00 WBC 8.6 RBC 3.19 L Hgb 9.5 L Hct 30.2 L MCV 94.7 H MCH 29.8 MCHC 31.5 L RDW Std Deviation 45.1 H RDW Coeff of James 13.0 Plt Count 172 MPV 11.7 Immature Gran % (Auto) 0.700 Neut % (Auto) 66.1 Lymph % (Auto) 20.3 [place] % (Auto) 10.6 H Eos % (Auto) 1.9 Baso % (Auto) 0.4 Absolute Neuts (auto) 5.7 Absolute Lymphs (auto) 1.74 Nucleated RBC % 0 Sodium 140 Potassium 4.1 Chloride 105 Carbon Dioxide 30.0 Anion Gap 5 BUN 42 H Creatinine 2.15 H Estim Creat Clear Calc 36.78 Est GFR (MDRD) Af Amer 40 L Est GFR (MDRD) Non-Af 33 L BUN/Creatinine Ratio 19.5 Glucose 263 H Lactic Acid 1.9 Calcium 8.4 L Troponin I High Sens 9.9 Radiography Chest X-Ray - ED: 1 View Diagnostic Testing: Radiology Impression Chest X-Ray 07/10/21 14:31 IMPRESSION: Bibasilar opacities concerning for pneumonia. at 1534 Reported and signed by: Dulce Brand MD Electronically Signed: Dulce Brand MD at 15:33 EDT Tel , Service support , Brain CT 07/10/21 15:22 IMPRESSION: No acute intracranial process identified. Chronic small vessel ischemic gliosis. Individualized dose optimization techniques were used for this CT. at 1545 Reported and signed by: Dulce Brand MD Electronically Signed: Dulce Brand MD at 15:44 EDT Tel , Service support , 1 view chest x-ray obtained interpreted by myself as increased markings both lower lobes consistent with pneumonia. Radiology in agreement. EKG Initial EKG: Attestation: I personally reviewed and interpreted this EKG as follows: Comments: Sinus rhythm with a ventricular rate of 77 bpm with a first-degree AV block Prior EKG tracings: available for review Prior: Unchanged Discharge Plan Dx/Rx/DC Orders Clinical Impression: Weakness, Acute hypotension, CELESTE (acute kidney injury), Pneumonia Disposition Disposition: Acute Care Hospital [facility]
[2021-07-10 15:10] LABS: Absolute Lymphocyte Count 1.74 X10^3/uL (0.83-4.51); Absolute Neutrophil Count 5.7 X10^3/uL (2.0-7.7); Basophil# 0.03 X10^3/uL; Basophil% 0.4 % (0-1); Eosinophil# 0.16 X10^3/uL; Eosinophils% 1.9 % (0-5); Hematocrit 30.2 % (40-54); Hemoglobin 9.5 g/dL (13.0-16.5); Lymphocyte # 1.74 X10^3/ul (0.83-4.51); Lymphocyte % 20.3 % (19-41); Mean Corp Hgb Conc 31.5 g/dL (32-36); Mean Corpuscular Hgb 29.8 pg (27.0-32.0); Mean Corpuscular Volume 94.7 fL (80-94); Mean Platelet Vol. 11.7 fl (6.2-12.0); Monocyte# 0.91 X10^3/uL; Monocyte% 10.6 % (0-10); NRBC Flagged by Analyzer 0 % (0-5); Neutrophil # 5.66 X10^3/uL (2.7-7.7); Neutrophil % 66.1 % (47-70); Platelet Count 172 K/mm3 (150-450); RBC Distribution Width SD 45.1 fl (35.1-43.9); Red Blood Count 3.19 M/mm3 (4.6-6.2); White Blood Count 8.6 K/mm3 (4.4-11.0)
--- NOTE | 2021-07-10 15:22 | CT_ITS ---
HISTORY: fall. TECHNIQUE: Multiple axial images were obtained of the brain without intravenous contrast. A radiation dose optimization technique was used for this scan. # of images incl. paperwork: 266. COMPARISON: 09/24/2020. FINDINGS: BRAIN PARENCHYMA:Multiple small foci and zones of low attenuation in the cerebral white matter most compatible with chronic small vessel ischemic gliosis. INTRACRANIAL HEMORRHAGE: No acute intracranial hemorrhage. CSF SPACES/MASS EFFECT: Diffuse atrophy with compensatory ventricular enlargement. No midline shift or other significant mass effect. ORBITS: Bilateral lens resections. CALVARIUM: Intact. PARANASAL SINUSES AND MASTOID AIR CELLS: Clear. CT/Brain/Head without Contrast IMPRESSION: No acute intracranial process identified. Chronic small vessel ischemic gliosis. Individualized dose optimization techniques were used for this CT. at 1545 Reported and signed by: Dulce Brand MD Electronically Signed: Dulce Brand MD at 15:44 EDT Tel , Service support ,
[2021-07-10 15:27] LABS: Anion Gap 5 (5-15); BUN 42 mg/dL (7-18); BUN/Creat Ratio 19.5 RATIO (10-20); Calcium,Total 8.4 mg/dL (8.5-10.1); Chloride 105 mmol/L (98-107); Creatinine, Serum 2.15 mg/dL (0.70-1.30); EST Glomerular Filtration Rate 33 mL/min (>60); Est Glom Filt Rate - Afr Amer 40 mL/min (>60); Estimated Creatinine Clearance 36.78 ml/min; Glucose 263 mg/dL (74-106); Potassium 4.1 mmol/L (3.5-5.1); Sodium Level 140 mmol/L (136-145); Troponin-I HS 9.9 pg/mL (3.0-78.5)
[2021-07-10] MEDS: 0.9% Normal Saline 1,000 ML 150 ML IV (15:40)
[2021-07-10 15:54] LABS: Lactic Acid 1.9 mmol/L (0.4-1.9)
[2021-07-10 16:02] LABS: Bacteria 0 SEEN /hpf (None Seen); Mucous, Urine 0 SEEN /hpf (<or=2+); Red Blood Cells-Urine 0 SEEN /hpf (0-5); White Blood Cells 0 SEEN /hpf (0-5)
--- NOTE | 2021-07-10 16:15 | HP.PCM.HOS_ITS ---
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) Chronic anemia, HTN, HLD, CAD s/p PCI x 2, PAD s/p BL LE stenting (2 each side), CHF unclear type, Anxiety and Depression, BPH, Diabetes mellitus type II, GERD, Chronic COPD, MARY on CPAP q HS, recently discharged following prolonged admission with pneumonia, discharged on completion regimen of levaquin on 06/28/21 who now re-presents to the [facility] ED on 07/10/21 with history of 48 hours of progressively worsening fatigue, lethargy, falls including off of the toilet today hitting his head with lower blood pressures, specifically reported systolic blood pressure 105, frequently napping with poor oral intake prompting family to bring him for evaluation. They deny any recent fever chills, nausea or vomiting, abdominal pain, diarrhea. Work-up in the ED included T 97.6 orally, heart rate 81, BP initially 85/61 with improvement to 110/97 following some hydration, heart rate 12, 97% on 2 L nasal cannula, CBC with WBC 8.6, hemoglobin 9.5, platelet 172 without marked shift, BMP with BUN/Cr 42/2.15 with last 07/02/2021 creatinine 1.36, glucose 263, lactic acid 1.9, high-sensitivity troponin 9.9, urinalysis pending upon evaluation, CT the brain with no acute intracranial findings, chest x-ray with bilateral opacities increased from prior, EKG with sinus rhythm with first-degree AV block with no acute evidence of ischemia. In the ED patient ministered IV fluids as well as a dose of Levaquin 750 mg IV x1. [facility] Medical History Amputation of one or more toes Anxiety CAD (coronary artery disease) Chest pain Congestive heart failure (CHF) COPD (chronic obstructive pulmonary disease) CPAP (continuous positive airway pressure) dependence Depression Diabetes GERD (gastroesophageal reflux disease) Hypertension Kidney stones Kidney stones Migraines Myocardial infarct Non-smoker On home oxygen therapy PAD (peripheral artery disease) Pulmonary nodule, left Severe sepsis Sleep apnea Vision loss of left eye Home Medications acetaminophen 1,000 mg PO BID PRN PRN 02/11/21 [History Last Taken 07/09/21] alprazolam 0.5 mg PO BID 02/11/21 [History Last Taken 07/10/21] atorvastatin 80 mg PO QHS 02/11/21 [History Last Taken 07/09/21] buspirone 7.5 mg PO TID 02/11/21 [History Last Taken 07/10/21] carvedilol 25 mg PO BID 02/11/21 [History Last Taken 07/10/21] clopidogrel 75 mg PO DAILY 02/11/21 [History Last Taken 07/10/21] finasteride 5 mg PO DAILY 02/11/21 [History Last Taken 07/10/21] fluoxetine 40 mg PO DAILY 02/11/21 [History Last Taken 07/10/21] insulin detemir U-100 28 unit SQ QHS 02/11/21 [History Last Taken 07/09/21] insulin lispro See Protocol SQ TIDCM 02/11/21 [History Last Taken 07/10/21] isosorbide mononitrate 30 mg PO DAILY 02/11/21 [History Last Taken 07/10/21] losartan 100 mg PO DAILY 02/11/21 [History Last Taken 07/10/21] nitroglycerin 0.4 mg SL Q5M PRN 02/11/21 [History Last Taken 02/08/21] pantoprazole 20 mg PO DAILY 02/11/21 [History Last Taken 07/10/21] pregabalin [Lyrica] 75 mg PO BID 05/13/21 [History Last Taken 07/10/21] nystatin [Nyamyc] 1 applic TOPICAL BID #0 g 06/28/21 [Rx Last Taken Unknown] clotrimazole 1 applic TOPICAL BID #30 g 07/02/21 [Rx Last Taken 07/09/21] fluoxetine 20 mg PO DAILY #0 cap 07/02/21 [Rx Last Taken 07/10/21] trazodone 100 mg PO QHS #0 tab 07/02/21 [Rx Last Taken 07/09/21] exenatide microspheres [Bydureon] 2 mg SUBCUT SA 07/10/21 [History Last Taken 07/05/21] furosemide 40 mg PO LUNCH 07/10/21 [History Last Taken 07/09/21] spironolactone 12.5 mg PO DAILY 07/10/21 [History Last Taken 07/09/21] Allergy/AdvReac Type Severity Reaction Status Date / Time allopurinol AdvReac Vomiting Verified 06/30/21 07:06 Influenza Virus Vaccines AdvReac Vomiting Verified 06/30/21 07:06 pneumococcal vaccine AdvReac Vomiting Verified 06/30/21 07:06 Family History Mother Diabetes Heart disease CHF Father Heart disease MO/CAD Myocardial infarction Surgical History H/O lithotripsy History of ankle surgery History of coronary artery stent placement Hx of toe surgery S/P peripheral artery angioplasty with stent placement S/P thyroid surgery Social History household members: spouse housing: apartment Smoking Status: Never smoker alcohol intake: never substance use type: does not use ROS ROS Narrative Admission Review of Systems: CONSTITUTIONAL: No weight loss, fever, chills, + weakness or fatigue. HEENT: Eyes: No visual loss, blurred vision, double vision or yellow sclerae. Ears, Nose, Throat: No hearing loss, sneezing, congestion, runny nose or sore throat. SKIN: No rash or itching, lesions, wounds. CARDIOVASCULAR: No chest pain, chest pressure or chest discomfort, palpitations, edema, orthopnea, syncopal events. RESPIRATORY: No marked increased shortness of breath, cough or sputum, wheezing, hemoptysis. GASTROINTESTINAL: No anorexia, nausea, vomiting or diarrhea, abdominal pain, melena, BRBPR. GENITOURINARY: No dysuria, frequency, urgency or retention. NEUROLOGICAL: + Lethargy, extreme fatigue, falls. No headache, dizziness, syncope, paralysis, ataxia, numbness or tingling in the extremities, focal weakness, change in bowel or bladder control, seizure. MUSCULOSKELETAL: + muscle, back pain, joint pain or stiffness. HEMATOLOGIC: + anemia, bleeding or bruising. LYMPHATICS: No enlarged nodes. No history of splenectomy. PSYCHIATRIC: + history of depression or anxiety. ENDOCRINOLOGIC: No reports of sweating, cold or heat intolerance. No polyuria or polydipsia. ALLERGIES: + history of asthma, hives, eczema or rhinitis. Vital Signs Vital Signs Vital Signs: 07/10/21 14:17 07/10/21 14:20 07/10/21 14:21 Temperature 97.9 F 97.6 F L Temperature Source Oral Oral Pulse Rate 84 81 Respiratory Rate 13 12 Respiratory Effort Normal Non-Labored Respiratory Pattern Normal Blood Pressure 85/61 L 85/61 L Blood Pressure Mean 69 69 Pulse Ox 95 97 Oxygen Delivery Method Nasal Cannula Nasal Cannula Oxygen Flow Rate (L/min) 2 2 07/10/21 14:29 07/10/21 15:16 07/10/21 16:00 Temperature 98.2 F 98.1 F Temperature Source Oral Temporal Pulse Rate 81 77 77 Respiratory Rate 17 12 10 L Respiratory Effort Respiratory Pattern Blood Pressure 110/76 110/97 H 114/66 Blood Pressure Mean 87 101 82 Pulse Ox 98 100 100 Oxygen Delivery Method Nasal Cannula Nasal Cannula Nasal Cannula Oxygen Flow Rate (L/min) 2 2 2 Weight Weight: 269 lb 2.951 oz Body Mass Index (BMI) 38.6 Physical Exam Narrative Physical Examination: General: Patient somewhat awakens to stimuli but is very fatigued and lethargic, intermittently alert, not answering orientation questions secondary to fatigue at this time, laying in the ED bed, no acute distress. Skin: Normal color, normal turgor, no icterus, no cyanosis except occasional staged ecchymoses, stasis disease bilateral lower extremities. HEENT: AT/NC, EOMI, PERRLA, mildly dry MM, no obvious carotid bruits or JVD noted; however, thickened neck makes examination difficult. Lungs: Diminished breath sounds throughout, greater bases, no evidence of any distress, mildly coarse bilaterally, no rales or wheezing. Heart: Regular rate and rhythm; no gallop, rub audible. Abdomen: Soft, obese, NTTP, ND, distant normal BS, no obvious HSM; however, habitus makes examination difficult. Extremities: No cyanosis, no clubbing, no marked edema, stasis disease, status post right lower extremity with toe resections. Neurological: Patient somewhat awakens to stimuli but is very fatigued and lethargic, intermittently alert, not answering orientation questions secondary to fatigue at this time, laying in the ED bed, no acute distress, cognitive function not baseline intact; pupils equally reactive to light and accommodation, cranial nerves grossly normal but difficult given lethargy, moving all 4 extremities to stimuli, no focal obvious deficits, strength severel y global decrease secondary to acute presentation. Psychiatric: Affect appears extremely fatigued, less interactive, no acute evidence of depressive or anxiety feelings. Results Lab / Micro Data Result Diagrams: 07/10/21 15:00 07/10/21 15:00 Labs: Laboratory Results - last 24 hr 07/10/21 15:00: WBC 8.6, RBC 3.19 L, Hgb 9.5 L, Hct 30.2 L, MCV 94.7 H, MCH 29.8, MCHC 31.5 L, RDW Std Deviation 45.1 H, RDW Coeff of James 13.0, Plt Count 172, MPV 11.7, Immature Gran % (Auto) 0.700, Neut % (Auto) 66.1, Lymph % (Auto) 20.3, [place] % (Auto) 10.6 H, Eos % (Auto) 1.9, Baso % (Auto) 0.4, Absolute Neuts (auto) 5.7, Absolute Lymphs (auto) 1.74, Nucleated RBC % 0 07/10/21 15:00: Sodium 140, Potassium 4.1, Chloride 105, Carbon Dioxide 30.0, Anion Gap 5, BUN 42 H, Creatinine 2.15 H, Estim Creat Clear Calc 36.78, Est GFR (MDRD) Af Amer 40 L, Est GFR (MDRD) Non-Af 33 L, BUN/Creatinine Ratio 19.5, Glucose 263 H, Calcium 8.4 L, Troponin I High Sens 9.9 07/10/21 15:00: Lactic Acid 1.9 Radiology Impression Chest X-Ray 07/10/21 14:31 IMPRESSION: Bibasilar opacities concerning for pneumonia. at 1534 Reported and signed by: Dulce Brand MD Electronically Signed: Dulce Brand MD at 15:33 EDT Tel , Service support , Brain CT 07/10/21 15:22 IMPRESSION: No acute intracranial process identified. Chronic small vessel ischemic gliosis. Individualized dose optimization techniques were used for this CT. at 1545 Reported and signed by: Dulce Brand MD Electronically Signed: Dulce Brand MD at 15:44 EDT Tel , Service support , Assessment & Plan Assessment/Plan (1) Pneumonia: QUALIFIERS: Pneumonia type: due to unspecified organism Laterality: bilateral Lung location: unspecified part of lung Qualified Code(s): J18.9 - Pneumonia, unspecified organism (2) CELESTE (acute kidney injury): PLAN: The patient is a 61 y/o M w/ PMHx: Congenital Right Lung Development, Chronic anemia, HTN, HLD, CAD s/p PCI x 2, PAD s/p BL LE stenting, CHF unclear type, Anxiety and Depression, BPH, Diabetes mellitus type II, GERD, Chronic COPD, MARY on CPAP q HS, recently discharged following prolonged admission with pneumonia, discharged on completion regimen of levaquin on 06/28/21 who now re-presents to the [facility] ED on 07/10/21 with history of 48 hours of progressively worsening fatigue, lethargy, falls including off of the toilet today hitting his head with lower blood pressures, specifically reported systolic blood pressure 105, frequently napping with poor oral intake prompting family to bring him for evaluation. 1. Acute encephalopathy with mechanical falls, FTT Adult secondary to worsening bilateral pneumonia, possibly HCPA, GN/GP organisms: Will admit to [facility], maintain on fall and aspiration precautions, maintain on oxygen with wean as tolerated to room air, PRN albuterol, maintained on IV Zosyn and Vancomycin, HOB, IS p arameters w/ pending sputum cultures and urine antigens. COVID antigen requested. Infectious disease consulted. May also consider Pulmonary re- consultation. Bld cx x 2 obtained in the ED. PT/OT, CM consulted for discharge planning. 2. Acute kidney injury on CKD stage IIIa with Hypotension, likely associated w/ #1 and poor oral intake: Admission BUN/Cr 42/2.15, prior baseline creatinine noted to be most recently 1.3-1.4. Will judiciously hydrate, hold nephrotoxic medications and repeat chemistry in AM. If no improvement would plan FeNa assessment. 3. Chronic CHF, unclear type: We will continue plavix, statin, continue Coreg, isosorbide with hold parameters given low BPs as noted, holding nephrotoxic regimen given CELESTE as noted, add back once appropriate. 4. CAD, PAD: Patient status post PCI x 2 as well as bilateral lower extremity stenting with 2 stents on each side, unclear specific locations, will continue Plavix, statin therapy, continue BB with hold parameters as noted holding ARB, beta-sarita therapy, resume once appropriate. 5. Hypertension: We will continue patient Coreg and isosorbide cautiously given low BP upon presentation, holding additional regimen given CELESTE as noted, as needed agents may be added also. 6. Hyperlipidemia: We will continue patient on statin therapy. 7. Diabetes mellitus type II with peripheral neuropathy: Will continue home insulin regimen, ADA diet once clinically more alert, accu checks w/ ISS, continue Lyrica with changes as needed if kidney function worsens. 8. Chronic normocytic anemia: Admission hemoglobin 9.5, baseline 10, stable, trend. 9. Anxiety and depression: We will continue patient home fluoxetine and BuSpar as well as alprazolam regimen to avoid withdrawal but if worsen function further may necessitate alteration to this regimen. 10. Chronic COPD: Patient not on any routine inhalers, will have PRN albuterol, encourage HOB, IS. 11. Obesity: Weight loss and lifestyle changes encouraged. 12. GERD: Continue home PPI. 13. MARY: CPAP nightly. 14. DVT Prophylaxis: SCDs, heparin. 15. CODE status: Patient [place] is his and living will is currently in place. Discussed CODE status at length including difference between FULL code, DNR-CCA and DNR-CC status. Following discussions about the differences in these status, requested Full Code status. Advanced Care Planning Face to Face Time: 16 minutes. Charges/Coding Visit Charges Inpatient E&M: 15352 Init Hosp L3 Procedures Hospitalists Procedures: 64490 Advncd Care Plan 30 Min
[2021-07-10] MEDS: levoFLOXacin IV 750 MG/150 ML BAG 100 MG IV (16:23)
--- NOTE | 2021-07-10 16:26 | NURSING ---
MED SURG WHITE CELESTE, FALLS, DEBILITY, PNEUMONIA
[2021-07-10 16:44] LABS: Magnesium 1.7 mg/dL (1.6-2.6)
[2021-07-10 18:54] LABS: Color, Urine Yellow (Yellow); Glucose, Dipstick 250 mg/dl (Normal); Ketone-Dipstick Negative (Negative); Leukocyte Esterase-Dipstick Negative /ul (Negative); Nitrite-Dipstick Negative (Negative); Occult Blood-Urine Negative /ul (Negative); Protein-Dipstick Negative (Negative); Urine Bilirubin Dipstick Negative (Negative); Urine Clarity Sl. Cloudy (Clear); Urine Urobilinogen Normal (Normal)
[2021-07-10 19:08] LABS: Squamous Epithelial Cells - UA 0-5 SEEN /hpf (0-5)
--- NOTE | 2021-07-10 21:02 | PCM.RX.CS ---
Consult Pharmacy has been consulted to manage selected antiobiotic: Vancomycin Type of Consult: New start Suspected Infection: Pneumonia Prior Doses of Antibiotics Received/Current Regimen: Received 2gm iv x 1 as loading dose on 07.10.21. Labs: Sodium 140 mmol/L (136-145) 07/10/21 15:00 Potassium 4.1 mmol/L (3.5-5.1) 07/10/21 15:00 Chloride 105 mmol/L (98-107) 07/10/21 15:00 Carbon Dioxide 30.0 mmol/L (21.0-32.0) 07/10/21 15:00 Anion Gap 5 (5-15) 07/10/21 15:00 BUN 42 mg/dL (7-18) H 07/10/21 15:00 Creatinine 2.15 mg/dL (0.70-1.30) H 07/10/21 15:00 Est GFR (MDRD) Af Amer 40 mL/min (>60) L 07/10/21 15:00 Est GFR (MDRD) Non-Af 33 mL/min (>60) L 07/10/21 15:00 BUN/Creatinine Ratio 19.5 RATIO (10-20) 07/10/21 15:00 Glucose 263 mg/dL (74-106) H 07/10/21 15:00 Microbiology: Microbiology 07/10/21 18:45 Urine, Clean Catch Streptococcus pneumoniae Antigen (M - Final 07/10/21 18:45 Urine, Clean Catch Legionella Antigen - Final 07/10/21 16:55 Mucosa - Nose SARS-CoV-2 Antigen (Rapid) - Final Weight used for dosin kg Estimated Creatinine Clearance: 38ml/min Goal Trough: 15-20 mcg/mL Pharmacy Plan for Drug Dosing: Will start patient on 1500mg iv q24h per protocol. Trough level ordered for 07.12.21 before third total dose. Pharmacy Service will continue to monitor and adjust dosing as required. Follow-Up Labs: Trough Vancomycin - 07.12.21@1830 before 1900 dose
[2021-07-10] MEDS: traZODone 100 MG Tablet PO (22:13)
[2021-07-10] MEDS: Carvedilol 25 MG Tablet PO (22:13)
[2021-07-10] MEDS: 0.9% Normal Saline 1,000 ML 100 ML IV (22:13)
[2021-07-10] MEDS: busPIRone 5 MG Tablet 7.5 MG PO (22:13)
[2021-07-10] MEDS: Heparin Injection (Vial) 5,000 UNIT/ML VIAL 5000 UNIT SC (22:14)
[2021-07-10] MEDS: Insulin Lispro 100 UNIT/ML INSULN.PEN SC (22:15)
[2021-07-10] MEDS: Clotrimazole 1 APPLIC Tube TOPICAL (22:15)
[2021-07-10] MEDS: Atorvastatin Calcium 80 MG Tablet PO (22:15)
[2021-07-10] MEDS: Nystatin Powder 15gm Bottle 1 APPLIC TOPICAL (22:16)
[2021-07-10] MEDS: Pregabalin 75 MG Capsule PO (22:16)
[2021-07-10] MEDS: ALPRAZolam 0.5 MG Tablet PO (22:16)
[2021-07-10 22:35] LABS: Bedside Glucose 213 mg/dL (70-110)
--- NOTE | 2021-07-10 23:26 | CPS ---
Patient reported to not use CPAP at home. Wears O2 NC when he goes to bed. Would like to use NC O2 overnight tonight.
[2021-07-11] VITALS (9 sets, daily range): BP systolic 116–160; BP diastolic 62–115; PULSE 75–104; RESP 18; TEMP 36.4–36.7; O2SAT 95–100
[2021-07-11] MEDS: Acetaminophen 325 MG Tablet 650 MG PO ×2 (00:54→16:06)
[2021-07-11] MEDS: 0.9% Normal Saline 1,000 ML 100 ML IV ×2 (06:37→16:06)
[2021-07-11] MEDS: Insulin Lispro 100 UNIT/ML INSULN.PEN SC ×4 (06:50→23:28)
[2021-07-11] MEDS: busPIRone 5 MG Tablet 7.5 MG PO ×3 (06:52→23:25)
[2021-07-11 07:12] LABS: Absolute Lymphocyte Count 1.02 X10^3/uL (0.83-4.51); Absolute Neutrophil Count 9.7 X10^3/uL (2.0-7.7); Basophil# 0.05 X10^3/uL; Basophil% 0.4 % (0-1); Eosinophil# 0.19 X10^3/uL; Eosinophils% 1.6 % (0-5); Lymphocyte # 1.02 X10^3/ul (0.83-4.51); Lymphocyte % 8.7 % (19-41); Mean Corp Hgb Conc 32.3 g/dL (32-36); Mean Corpuscular Hgb 29.9 pg (27.0-32.0); Mean Corpuscular Volume 92.8 fL (80-94); Mean Platelet Vol. 11.5 fl (6.2-12.0); Monocyte# 0.79 X10^3/uL; Monocyte% 6.7 % (0-10); NRBC Flagged by Analyzer 0 % (0-5); Neutrophil # 9.68 X10^3/uL (2.7-7.7); Neutrophil % 82.1 % (47-70); Platelet Count 160 K/mm3 (150-450); RBC Distribution Width SD 44.1 fl (35.1-43.9); Red Blood Count 3.34 M/mm3 (4.6-6.2); White Blood Count 11.8 K/mm3 (4.4-11.0)
[2021-07-11 07:54] LABS: ALB/GLOB Ratio 0.8 RATIO (0.9-2.4); AST(SGOT) 20 U/L (15-37); Alanine Aminotransfer ALT/SGPT 26 U/L (16-61); Albumin, Serum 2.7 g/dL (3.2-5.0); Alkaline Phosphatase 101 U/L (45-117); Anion Gap 3 (5-15); BUN 28 mg/dL (7-18); BUN/Creat Ratio 19.4 RATIO (10-20); Calcium,Total 8.5 mg/dL (8.5-10.1); Chloride 109 mmol/L (98-107); Creatinine, Serum 1.44 mg/dL (0.70-1.30); EST Glomerular Filtration Rate 53 mL/min (>60); Est Glom Filt Rate - Afr Amer 64 mL/min (>60); Estimated Creatinine Clearance 54.92 ml/min; Globulin 3.5 g/dL (2.2-4.2); Glucose 159 mg/dL (74-106); Potassium 4.7 mmol/L (3.5-5.1); Protein, Total 6.2 g/dL (6.4-8.2); Sodium Level 140 mmol/L (136-145)
[2021-07-11] MEDS: Pregabalin 75 MG Capsule PO ×2 (10:47→23:27)
[2021-07-11] MEDS: Carvedilol 25 MG Tablet PO ×2 (10:47→23:26)
[2021-07-11] MEDS: FLUoxetine 20 MG Capsule 60 MG PO (10:48)
[2021-07-11] MEDS: Heparin Injection (Vial) 5,000 UNIT/ML VIAL 5000 UNIT SC ×2 (10:48→23:28)
[2021-07-11] MEDS: Finasteride 5 MG Tablet PO (10:49)
[2021-07-11] MEDS: Clopidogrel Bisulfate 75 MG Tablet PO (10:49)
[2021-07-11] MEDS: Nystatin Powder 15gm Bottle 1 APPLIC TOPICAL ×2 (10:49→23:28)
[2021-07-11] MEDS: Isosorbide Mononitrate 30 MG Tablet PO (10:49)
[2021-07-11] MEDS: Pantoprazole Sodium 20 MG Tablet PO (10:50)
[2021-07-11] MEDS: Clotrimazole 1 APPLIC Tube TOPICAL ×2 (10:50→23:27)
[2021-07-11] MEDS: ALPRAZolam 0.5 MG Tablet PO ×2 (10:52→23:26)
[2021-07-11 11:31] LABS: Bedside Glucose 153 mg/dL (70-110)
[2021-07-11 12:01] LABS: Bedside Glucose 238 mg/dL (70-110)
--- NOTE | 2021-07-11 12:15 | PCM.PN.HOSP ---
Subjective Subjective Patient seen and examined. He was admitted with a complaint of worsening weakness and lethargy as well as mechanical falls and low blood pressures. Patient had recently been admitted for pneumonia and discharged home after prolonged admission. On admission, chest x-ray showed bilateral opacities increased from previous. He has been managed for debility and pneumonia. Patient remains quite weak and frail this morning. He had no active complaints and denied any fever, chills, shortness of breath, chest pain, palpitations, dizziness, nausea or vomiting. Review of systems is otherwise negative. Objective Data Objective Data Vital Signs: Vital Signs Temp Pulse Resp BP Pulse Ox 97.5 F L 81 18 120/63 98 07/11/21 11:04 07/11/21 11:04 07/11/21 11:04 07/11/21 11:04 07/11/21 11:26 Oxygen Flow Rate (L/min) 3 Oxygen Delivery Method Room Air Weight: 263 lb 10.766 oz Body Mass Index (BMI) 38.6 Intake & Output: Intake and Output for Last 24 Hours 07/09/21 07/10/21 07/11/21 23:59 23:59 23:59 Intake Total 2740 / 3040 1290 / 1290 Output Total 1500 / 1500 Balance 2740 / 2440 -210 / -210 Lab / Micro Data Result Diagrams: 07/11/21 06:18 07/11/21 06:18 Labs: Laboratory Results - last 24 hr 07/10/21 14:31: Urine Color Yellow, Urine Clarity Sl. Cloudy, Urine pH 6.0, Ur Specific [place] 1.010, Urine Protein Negative, Urine Glucose (UA) 250 H, Urine Ketones Negative, Urine Occult Blood Negative, Urine Nitrite Negative, Urine Bilirubin Negative, Urine Urobilinogen Normal, Ur Leukocyte Esterase Negative, Urine RBC 0 SEEN, Urine WBC 0 SEEN, Ur Squamous Epith Cells 0-5 SEEN, Urine Bacteria 0 SEEN, Urine Mucus 0 SEEN 07/10/21 15:00: WBC 8.6, RBC 3.19 L, Hgb 9.5 L, Hct 30.2 L, MCV 94.7 H, MCH 29.8, MCHC 31.5 L, RDW Std Deviation 45.1 H, RDW Coeff of James 13.0, Plt Count 172, MPV 11.7, Immature Gran % (Auto) 0.700, Neut % (Auto) 66.1, Lymph % (Auto) 20.3, [place] % (Auto) 10.6 H, Eos % (Auto) 1.9, Baso % (Auto) 0.4, Absolute Neuts (auto) 5.7, Absolute Lymphs (auto) 1.74, Nucleated RBC % 0 07/10/21 15:00: Sodium 140, Potassium 4.1, Chloride 105, Carbon Dioxide 30.0, Anion Gap 5, BUN 42 H, Creatinine 2.15 H, Estim Creat Clear Calc 36.78, Est GFR (MDRD) Af Amer 40 L, Est GFR (MDRD) Non-Af 33 L, BUN/Creatinine Ratio 19.5, Glucose 263 H, Calcium 8.4 L, Troponin I High Sens 9.9 07/10/21 15:00: Lactic Acid 1.9 07/10/21 15:00: Magnesium 1.7 07/10/21 21:57: POC Glucose 213 H 07/11/21 06:18: WBC 11.8 H, RBC 3.34 L, Hgb 10.0 L, Hct 31.0 L, MCV 92.8, MCH 29.9, MCHC 32.3, RDW Std Deviation 44.1 H, RDW Coeff of James 13.0, Plt Count 160, MPV 11.5, Immature Gran % (Auto) 0.500, Neut % (Auto) 82.1 H, Lymph % (Auto) 8.7 L, [place] % (Auto) 6.7, Eos % (Auto) 1.6, Baso % (Auto) 0.4, Absolute Neuts (auto) 9.7 H, Absolute Lymphs (auto) 1.02, Nucleated RBC % 0 07/11/21 06:18: Sodium 140, Potassium 4.7, Chloride 109 H, Carbon Dioxide 28.0, Anion Gap 3 L, BUN 28 H, Creatinine 1.44 H, Estim Creat Clear Calc 54.92, Est GFR (MDRD) Af Amer 64, Est GFR (MDRD) Non-Af 53 L, BUN/Creatinine Ratio 19.4, Glucose 159 H, Calcium 8.5, Total Bilirubin 0.30, AST 20, ALT 26, Alkaline Phosphatase 101, Total Protein 6.2 L, Albumin 2.7 L, Globulin 3.5, Albumin/Globulin Ratio 0.8 L 07/11/21 06:49: POC Glucose 153 H 07/11/21 11:22: POC Glucose 238 H Micro: Microbiology 07/10/21 18:45 Urine, Clean Catch Streptococcus pneumoniae Antigen (M - Final 07/10/21 18:45 Urine, Clean Catch Legionella Antigen - Final 07/10/21 16:55 Mucosa - Nose SARS-CoV-2 Antigen (Rapid) - Final Radiography Diagnostic Testing: Radiology Impression Chest X-Ray 07/10/21 14:31 IMPRESSION: Bibasilar opacities concerning for pneumonia. at 1534 Reported and signed by: Dulce Brand MD Electronically Signed: Dulce Brand MD at 15:33 EDT Tel , Service support , Brain CT 07/10/21 15:22 IMPRESSION: No acute intracranial process identified. Chronic small vessel ischemic gliosis. Individualized dose optimization techniques were used for this CT. at 1545 Reported and signed by: Dulce Brand MD Electronically Signed: Dulce Brand MD at 15:44 EDT Tel , Service support , Physical Exam Const alert Orientation / Consciousness: disoriented and lethargic Exam Limitations: no limitations HEENT head/scalp atraumatic Head and Scalp: normocephalic Mouth: dry mucous membranes Eyes PERRL, EOMs intact bilaterally and conjunctivae normal Neck no lymphadenopathy and supple Resp no retractions and no use of accessory muscles Resp Narrative: diminished breath sounds bibasally, no wheezes, few crackles bilaterally. On 3L of oxygen Cardio regular rate, regular rhythm, S1 normal heart sound, S2 normal heart sound and no murmurs GI normal to inspection, nondistended, normoactive bowel sounds, soft to palpation, non-tender and non-distended Extremity normal to inspection, full ROM and no clubbing, cyanosis or edema Peripheral Pulses: Yes pulses 2+ throughout Skin no rashes or lesions noted Neuro moves all extremities Neuro Narrative: lethargic Sensorium / Orientation: awake and alert Assessment & Plan Assessment/Plan (1) CELESTE (acute kidney injury): (2) Acute hypotension: (3) Pneumonia: QUALIFIERS: Pneumonia type: due to unspecified organism Laterality: bilateral Lung location: unspecified part of lung Qualified Code(s): J18.9 - Pneumonia, unspecified organism PLAN: #Acute metabolic encephalopathy likely due to bilateral pneumonia and CELESTE on CKD being hydrated with IVF fall precautions PT/OT on board #Celeste on CKD 3a Cr is 2.15, with a baseline of 1.23. Cr down to 1.44. being gently hydrated with IVF. Will monitor #Bilateral pneumonia CXR showed worsening bilateral pneumonia on IV levaquin and zosyn as well as vancomycin #CAD and PAD: on aspirin and plavix, as well as carvedilol #Hypertension: BP meds held due to low BP. #Hyperlipidemia: on statin #Type 2 diabetes mellitus on insulin lantus 28 units qhs ISS. Accuchecks achs on lyrica for peripheral neuropathy #Anxiety and depression; on buspar and fluoxetine #COPD: stable. On breathing treatment with bronchodilators #GERD: on PPI #MARY: on CPAP DVT prophylaxis: lovenox Charges/Coding Visit Charges Inpatient E&M: 65400 [facility] Hosp L3
--- NOTE | 2021-07-11 14:07 | CASEMGMT ---
ALICE PHOENIX Readmission Note Previous Admission: 06/30/21-07/02/21 Diagnosis: COPD exac, hypoxia, leukocytosis DC Disposition: Home with [facility] SN, PT, OT and ST Current Admission Current dx: FTT, CELESTE, Falls Pt presented to ER from home with blodd sugar over 400, hypotension and a fall. Pt is active with [facility] SN, PT, OT and ST. Pt states he was taking his medications properly as his sig of 5 years administers them to him. Pt has not yet had his follow up appt with PCP, but it is scheduled this month. Pt is upset when ALICE PHOENIX went into the room. Pt wants to go home. He states he is tired of being poked and prodded. He states he is not going to go to a skilled facility as suggested. Pt sig other at bedside who states she cannot do for him at home what is being done at the hospital. Pt states he still wants to return home. ALICE PHOENIX to follow. Plan: TBD- Home with HHC resuming vs SNF.
--- NOTE | 2021-07-11 14:22 | CON.PCM.CC_ITS ---
Assessment & Plan Assessment/Plan (1) Pneumonia: QUALIFIERS: Laterality: bilateral Lung location: unspecified part of lung Pneumonia type: due to unspecified organism Qualified Code(s): J18.9 - Pneumonia, unspecified organism PLAN: RECOMMENDATIONS: 1. No antimicrobials are indicated from a respiratory perspective. 2. Perform walking oximetry study prior to consideration for discharge home. 3. Maintain aspiration precautions. 4. Follow-up in the pulmonary medicine clinic on July 24, as previously scheduled. 5. Will sign off. Please call with any additional questions. IMPRESSIONS: 1. Recent hospital admission for pneumonia The patient was recently discharged from the hospital at the beginning of the month after being treated for pneumonia, likely secondary to aspiration. His presenting chest x-ray, upon my review, appears no different than his last x-ray at the beginning of June. Therefore, I do feel that given the patient's lack of respiratory symptoms including shortness of breath or cough, that his radiographic findings are the resolving sequelae of his recent pneumonia. I would not anticipate complete improvement in the patient's chest x-ray for at least 6 to 8 weeks. The patient is maintaining appropriate oxygen saturations on room air. While he does have a documented history of silent aspiration, based upon modified barium swallow at the beginning of June, he is apparently working with speech therapy on an outpatient basis. He would, however, be at hi gh risk for future aspiration events and subsequent pulmonary infections. At this time, the patient appears clinically stable from a respiratory perspective. Antibiotics can be discontinued. I would perform a walking oximetry study prior to consideration for discharge home to ensure adequacy of oxygenation with exertion. The patient should follow-up in the pulmonary medicine clinic as previously scheduled on July 24. This note was generated with [employer] ([employer]) dictation software. It may contain incorrect words, spelling, and punctuation that were not noted in checking the note before signing. HPI Consult Data Date of Consult: 07/12/21 HPI Narrative Reason for Consultation: Questionable pneumonia HPI Narrative: The patient is a 61-year-old male, with a history as outlined below, who presented to the emergency department with lethargy and hypotension. The patient had just been discharged from the hospital in June for after he was admitted with shortness of breath and fever and was subsequently found to have a right upper and lower lobe pneumonia, which was treated with antimicrobials. At the time of his discharge, he was sent home on Levaquin. It should also be noted that a modified barium swallow was completed on July 01 which did reveal evidence of silent aspiration. It was recommended that the patient be on a modified diet. On presentation to the emergency department, the patient was noted to be afebrile with a blood pressure of 85/61 mmHg. Laboratory evaluation revealed a white blood cell count of 8000. Chemistry profile was notable for a creatinine of 2.15. Urine analysis was unremarkable. Although the patient's chest x-ray was read out by radiology to demonstrate bibasilar opacities, these appear to be chronic and unchanged from his previous chest x-ray on June 30. The patient di d receive supplemental IV fluid hydration and was started on broad-spectrum antimicrobials. He was admitted to the medical surgical floor for further management. [facility] Medical History Amputation of one or more toes Anxiety Bronchiectasis with (acute) exacerbation CAD (coronary artery disease) Chest pain Congestive heart failure (CHF) COPD (chronic obstructive pulmonary disease) CPAP (continuous positive airway pressure) dependence Depression Diabetes GERD (gastroesophageal reflux disease) Hypertension Kidney stones Kidney stones Migraines Myocardial infarct Non-smoker On home oxygen therapy PAD (peripheral artery disease) Pneumonia Pulmonary nodule, left Severe sepsis Sleep apnea Vision loss of left eye Home Medications acetaminophen 1,000 mg PO BID PRN PRN 02/11/21 [History Last Taken 07/09/21] alprazolam 0.5 mg PO BID 02/11/21 [History Last Taken 07/10/21] atorvastatin 80 mg PO QHS 02/11/21 [History Last Taken 07/09/21] buspirone 7.5 mg PO TID 02/11/21 [History Last Taken 07/10/21] carvedilol 25 mg PO BID 02/11/21 [History Last Taken 07/10/21] clopidogrel 75 mg PO DAILY 02/11/21 [History Last Taken 07/10/21] finasteride 5 mg PO DAILY 02/11/21 [History Last Taken 07/10/21] fluoxetine 40 mg PO DAILY 02/11/21 [History Last Taken 07/10/21] insulin detemir U-100 28 unit SQ QHS 02/11/21 [History Last Taken 07/09/21] insulin lispro See Protocol SQ TIDCM 02/11/21 [History Last Taken 07/10/21] isosorbide mononitrate 30 mg PO DAILY 02/11/21 [History Last Taken 07/10/21] losartan 100 mg PO DAILY 02/11/21 [History Last Taken 07/10/21] nitroglycerin 0.4 mg SL Q5M PRN 02/11/21 [History Last Taken 02/08/21] pantoprazole 20 mg PO DAILY 02/11/21 [History Last Taken 07/10/21] pregabalin [Lyrica] 75 mg PO BID 05/13/21 [History Last Taken 07/10/21] nystatin [Nyamyc] 1 applic TOPICAL BID #0 g 06/28/21 [Rx Last Taken Unknown] clotrimazole 1 applic TOPICAL BID #30 g 07/02/21 [Rx Last Taken 07/09/21] fluoxetine 20 mg PO DAILY #0 cap 07/02/21 [Rx Last Taken 07/10/21] trazodone 100 mg PO QHS #0 tab 07/02/21 [Rx Last Taken 07/09/21] exenatide microspheres [Bydureon] 2 mg SUBCUT SA 07/10/21 [History Last Taken 07/05/21] furosemide 40 mg PO LUNCH 07/10/21 [History Last Taken 07/09/21] spironolactone 12.5 mg PO DAILY 07/10/21 [History Last Taken 07/09/21] Allergy/AdvReac Type Severity Reaction Status Date / Time allopurinol AdvReac Vomiting Verified 06/30/21 07:06 Influenza Virus Vaccines AdvReac Vomiting Verified 06/30/21 07:06 pneumococcal vaccine AdvReac Vomiting Verified 06/30/21 07:06 Family History Mother Diabetes Heart disease CHF Father Heart disease [place]/CAD Myocardial infarction Surgical History H/O lithotripsy History of ankle surgery History of coronary artery stent placement Hx of toe surgery S/P peripheral artery angioplasty with stent placement S/P thyroid surgery Social History household members: spouse housing: apartment Smoking Status: Never smoker alcohol intake: never substance use type: does not use ROS Constitutional Constitutional: Denies chills or fever(s) Eyes Eyes: Denies blurry vision or change in vision ENT HEENT: Denies dizziness, epistaxis, loss taste/smell or nasal congestion Cardiovascular Cardiovascular: Denies chest pain or dyspnea Respiratory/Chest Respiratory/Chest: Denies chest tightness or cough Gastrointestinal Gastrointestinal: Denies abdominal pain, diarrhea, nausea or vomiting Genitourinary Genitourinary: Denies difficulty urinating Musculoskeletal Musculoskeletal: Denies arthralgias Integumentary Integumentary: Denies lesions, rash or skin ulcer Neurologic Neurologic: Denies abnormal speech or confusion Psychiatric Psychiatric: Denies anxiety or depression Endocrine Endocrinology: Denies fatigue Hematologic/Lymphatic Hematologic/Lymphatic: Denies easy bleeding or easy bruising Physical Exam Const alert, oriented x3 and no apparent distress Constitutional Narrative: Sitting in bedside recliner. is present at the bedside. General Appearance: cooperative Nutritional Appearance: obese HEENT normocephalic and head/scalp atraumatic Eyes PERRL, EOMs intact bilaterally and conjunctivae normal Neck supple General: trachea midline Chest inspection of chest normal Resp normal respiratory effort and no use of accessory muscles Resp Narrative: Maintaining appropriate oxygen saturations on room air. Effort and Inspection: able to speak in complete sentences Auscultation: Negative for rales, rhonchi or wheezes Cardio regular rate and regular rhythm GI normal to inspection, nondistended, normoactive bowel sounds Extremity no clubbing, cyanosis or edema Skin no rashes or lesions noted Neuro no focal motor deficits Psych cooperative and affect normal Lab / Micro Data Result Diagrams: 07/11/21 06:18 07/11/21 06:18 Labs: Laboratory Results - last 24 hr 07/10/21 14:31: Urine Color Yellow, Urine Clarity Sl. Cloudy, Urine pH 6.0, Ur Specific [place] 1.010, Urine Protein Negative, Urine Glucose (UA) 250 H, Urine Ketones Negative, Urine Occult Blood Negative, Urine Nitrite Negative, Urine Bilirubin Negative, Urine Urobilinogen Normal, Ur Leukocyte Esterase Negative, Urine RBC 0 SEEN, Urine WBC 0 SEEN, Ur Squamous Epith Cells 0-5 SEEN, Urine Bacteria 0 SEEN, Urine Mucus 0 SEEN 07/10/21 15:00: WBC 8.6, RBC 3.19 L, Hgb 9.5 L, Hct 30.2 L, MCV 94.7 H, MCH 29.8, MCHC 31.5 L, RDW Std Deviation 45.1 H, RDW Coeff of James 13.0, Plt Count 172, MPV 11.7, Immature Gran % (Auto) 0.700, Neut % (Auto) 66.1, Lymph % (Auto) 20.3, [place] % (Auto) 10.6 H, Eos % (Auto) 1.9, Baso % (Auto) 0.4, Absolute Neuts (auto) 5.7, Absolute Lymphs (auto) 1.74, Nucleated RBC % 0 07/10/21 15:00: Sodium 140, Potassium 4.1, Chloride 105, Carbon Dioxide 30.0, Anion Gap 5, BUN 42 H, Creatinine 2.15 H, Estim Creat Clear Calc 36.78, Est GFR (MDRD) Af Amer 40 L, Est GFR (MDRD) Non-Af 33 L, BUN/Creatinine Ratio 19.5, Glucose 263 H, Calcium 8.4 L, Troponin I High Sens 9.9 07/10/21 15:00: Lactic Acid 1.9 07/10/21 15:00: Magnesium 1.7 07/10/21 21:57: POC Glucose 213 H 07/11/21 06:18: WBC 11.8 H, RBC 3.34 L, Hgb 10.0 L, Hct 31.0 L, MCV 92.8, MCH 29.9, MCHC 32.3, RDW Std Deviation 44.1 H, RDW Coeff of [place] 13.0, Plt Count 160, MPV 11.5, Immature Gran % (Auto) 0.500, Neut % (Auto) 82.1 H, Lymph % (Auto) 8.7 L, [place] % (Auto) 6.7, Eos % (Auto) 1.6, Baso % (Auto) 0.4, Absolute Neuts (auto) 9.7 H, Absolute Lymphs (auto) 1.02, Nucleated RBC % 0 07/11/21 06:18: Sodium 140, Potassium 4.7, Chloride 109 H, Carbon Dioxide 28.0, Anion Gap 3 L, BUN 28 H, Creatinine 1.44 H, Estim Creat Clear Calc 54.92, Est GFR (MDRD) Af Amer 64, Est GFR (MDRD) Non-Af 53 L, BUN/Creatinine Ratio 19.4, Glucose 159 H, Calcium 8.5, Total Bilirubin 0.30, AST 20, ALT 26, Alkaline Phosphatase 101, Total Protein 6.2 L, Albumin 2.7 L, Globulin 3.5, Albumin/Natalie bulin Ratio 0.8 L 07/11/21 06:49: POC Glucose 153 H 07/11/21 11:22: POC Glucose 238 H Micro: Microbiology 07/10/21 18:45 Urine, Clean Catch Streptococcus pneumoniae Antigen (M - Final 07/10/21 18:45 Urine, Clean Catch Legionella Antigen - Final 07/10/21 16:55 Mucosa - Nose SARS-CoV-2 Antigen (Rapid) - Final Radiology Impression Chest X-Ray 07/10/21 14:31 IMPRESSION: Bibasilar opacities concerning for pneumonia. at 1534 Reported and signed by: Dulce Brand MD Electronically Signed: Dulce Brand MD at 15:33 EDT Tel , Service support , Brain CT 07/10/21 15:22 IMPRESSION: No acute intracranial process identified. Chronic small vessel ischemic gliosis. Individualized dose optimization techniques were used for this CT. at 1545 Reported and signed by: Dulce Brand MD Electronically Signed: Dulce Brand MD at 15:44 EDT Tel , Service support , Charges/Coding Visit Charges Inpatient E&M: 56760 Init Hosp L2
--- NOTE | 2021-07-11 15:01 | PCM.CONS.GEN ---
Assessment & Plan Assessment/Plan (1) Acute hypotension: (2) CELESTE (acute kidney injury): (3) Weakness: PLAN: No clear sign of new infection. Doing well today. Will monitor off abx. Will follow, thank you, d/w Dr. Lanier HPI Consult Data Date of Consult: 07/11/21 HPI Narrative HPI Narrative: REA HANNA, is a 61 M who presented acute onset fatigue, weakness, confusion, fall at home. Recent admit with pneumonia and silent aspiration. Came back after fall in the bathroom. Feeling much better today, on vanc/zosyn, provided additional history. No cough or SOB, denies any choking on food. Full ROS performed and neg except as noted above. [facility] Medical History Amputation of one or more toes Anxiety Bronchiectasis with (acute) exacerbation CAD (coronary artery disease) Chest pain Congestive heart failure (CHF) COPD (chronic obstructive pulmonary disease) CPAP (continuous positive airway pressure) dependence Depression Diabetes GERD (gastroesophageal reflux disease) Hypertension Kidney stones Kidney stones Migraines Myocardial infarct Non-smoker On home oxygen therapy PAD (peripheral artery disease) Pneumonia Pulmonary nodule, left Severe sepsis Sleep apnea Vision loss of left eye Home Medications acetaminophen 1,000 mg PO BID PRN PRN 02/11/21 [History Last Taken 07/09/21] alprazolam 0.5 mg PO BID 02/11/21 [History Last Taken 07/10/21] atorvastatin 80 mg PO QHS 02/11/21 [History Last Taken 07/09/21] buspirone 7.5 mg PO TID 02/11/21 [History Last Taken 07/10/21] carvedilol 25 mg PO BID 02/11/21 [History Last Taken 07/10/21] clopidogrel 75 mg PO DAILY 02/11/21 [History Last Taken 07/10/21] finasteride 5 mg PO DAILY 02/11/21 [History Last Taken 07/10/21] fluoxetine 40 mg PO DAILY 02/11/21 [History Last Taken 07/10/21] insulin detemir U-100 28 unit SQ QHS 02/11/21 [History Last Taken 07/09/21] insulin lispro See Protocol SQ TIDCM 02/11/21 [History Last Taken 07/10/21] isosorbide mononitrate 30 mg PO DAILY 02/11/21 [History Last Taken 07/10/21] losartan 100 mg PO DAILY 02/11/21 [History Last Taken 07/10/21] nitroglycerin 0.4 mg SL Q5M PRN 02/11/21 [History Last Taken 02/08/21] pantoprazole 20 mg PO DAILY 02/11/21 [History Last Taken 07/10/21] pregabalin [Lyrica] 75 mg PO BID 05/13/21 [History Last Taken 07/10/21] nystatin [Nyamyc] 1 applic TOPICAL BID #0 g 06/28/21 [Rx Last Taken Unknown] clotrimazole 1 applic TOPICAL BID #30 g 07/02/21 [Rx Last Taken 07/09/21] fluoxetine 20 mg PO DAILY #0 cap 07/02/21 [Rx Last Taken 07/10/21] trazodone 100 mg PO QHS #0 tab 07/02/21 [Rx Last Taken 07/09/21] exenatide microspheres [Bydureon] 2 mg SUBCUT SA 07/10/21 [History Last Taken 07/05/21] furosemide 40 mg PO LUNCH 07/10/21 [History Last Taken 07/09/21] spironolactone 12.5 mg PO DAILY 07/10/21 [History Last Taken 07/09/21] Allergy/AdvReac Type Severity Reaction Status Date / Time allopurinol AdvReac Vomiting Verified 06/30/21 07:06 Influenza Virus Vaccines AdvReac Vomiting Verified 06/30/21 07:06 pneumococcal vaccine AdvReac Vomiting Verified 06/30/21 07:06 Family History Mother Diabetes Heart disease CHF Father Heart disease [place]/CAD Myocardial infarction Surgical History H/O lithotripsy History of ankle surgery History of coronary artery stent placement Hx of toe surgery S/P peripheral artery angioplasty with stent placement S/P thyroid surgery Social History household members: spouse housing: apartment Smoking Status: Never smoker alcohol intake: never substance use type: does not use Physical Exam Const alert, oriented x3 and no apparent distress General Appearance: cooperative HEENT normocephalic and head/scalp atraumatic Eyes PERRL and EOMs intact bilaterally Neck supple and No nodes Resp normal air movement and clear to auscultation bilaterally Cardio regular rate and regular rhythm GI normal to inspection, nondistended, normoactive bowel sounds Extremity General Extremity: edema Skin no rashes or lesions noted Neuro CN's II-XII intact bilaterally Lab / Micro Data Result Diagrams: 07/11/21 06:18 07/11/21 06:18 Labs: Laboratory Results - last 24 hr 07/10/21 14:31: Urine Color Yellow, Urine Clarity Sl. Cloudy, Urine pH 6.0, Ur Specific [place] 1.010, Urine Protein Negative, Urine Glucose (UA) 250 H, Urine Ketones Negative, Urine Occult Blood Negative, Urine Nitrite Negative, Urine Bilirubin Negative, Urine Urobilinogen Normal, Ur Leukocyte Esterase Negative, Urine RBC 0 SEEN, Urine WBC 0 SEEN, Ur Squamous Epith Cells 0-5 SEEN, Urine Bacteria 0 SEEN, Urine Mucus 0 SEEN 07/10/21 15:00: WBC 8.6, RBC 3.19 L, Hgb 9.5 L, Hct 30.2 L, MCV 94.7 H, MCH 29.8, MCHC 31.5 L, RDW Std Deviation 45.1 H, RDW Coeff of James 13.0, Plt Count 172, MPV 11.7, Immature Gran % (Auto) 0.700, Neut % (Auto) 66.1, Lymph % (Auto) 20.3, [place] % (Auto) 10.6 H, Eos % (Auto) 1.9, Baso % (Auto) 0.4, Absolute Neuts (auto) 5.7, Absolute Lymphs (auto) 1.74, Nucleated RBC % 0 07/10/21 15:00: Sodium 140, Potassium 4.1, Chloride 105, Carbon Dioxide 30.0, Anion Gap 5, BUN 42 H, Creatinine 2.15 H, Estim Creat Clear Calc 36.78, Est GFR (MDRD) Af Amer 40 L, Est GFR (MDRD) Non-Af 33 L, BUN/Creatinine Ratio 19.5, Glucose 263 H, Calcium 8.4 L, Troponin I High Sens 9.9 07/10/21 15:00: Lactic Acid 1.9 07/10/21 15:00: Magnesium 1.7 07/10/21 21:57: POC Glucose 213 H 07/11/21 06:18: WBC 11.8 H, RBC 3.34 L, Hgb 10.0 L, Hct 31.0 L, MCV 92.8, MCH 29.9, MCHC 32.3, RDW Std Deviation 44.1 H, RDW Coeff of James 13.0, Plt Count 160, MPV 11.5, Immature Gran % (Auto) 0.500, Neut % (Auto) 82.1 H, Lymph % (Auto) 8.7 L, [place] % (Auto) 6.7, Eos % (Auto) 1.6, Baso % (Auto) 0.4, Absolute Neuts (auto) 9.7 H, Absolute Lymphs (auto) 1.02, Nucleated RBC % 0 07/11/21 06:18: Sodium 140, Potassium 4.7, Chloride 109 H, Carbon Dioxide 28.0, Anion Gap 3 L, BUN 28 H, Creatinine 1.44 H, Estim Creat Clear Calc 54.92, Est GFR (MDRD) Af Amer 64, Est GFR (MDRD) Non-Af 53 L, BUN/Creatinine Ratio 19.4, Glucose 159 H, Calcium 8.5, Total Bilirubin 0.30, AST 20, ALT 26, Alkaline Phosphatase 101, Total Protein 6.2 L, Albumin 2.7 L, Globulin 3.5, Albumin/Globulin Ratio 0.8 L 07/11/21 06:49: POC Glucose 153 H 07/11/21 11:22: POC Glucose 238 H Micro: Microbiology 07/10/21 18:45 Urine, Clean Catch Streptococcus pneumoniae Antigen (M - Final 07/10/21 18:45 Urine, Clean Catch Legionella Antigen - Final 07/10/21 16:55 Mucosa - Nose SARS-CoV-2 Antigen (Rapid) - Final Radiology Impression Chest X-Ray 07/10/21 14:31 IMPRESSION: Bibasilar opacities concerning for pneumonia. at 1534 Reported and signed by: Dulce Brand MD Electronically Signed: Dulce Brand MD at 15:33 EDT Tel , Service support , Brain CT 07/10/21 15:22 IMPRESSION: No acute intracranial process identified. Chronic small vessel ischemic gliosis. Individualized dose optimization techniques were used for this CT. at 1545 Reported and signed by: Dulce Brand MD Electronically Signed: Dulce Brand MD at 15:44 EDT Tel , Service support ,
--- NOTE | 2021-07-11 15:27 | CPS ---
Talked to patient about home CPAP. Patient said he does have a CPAP machine at home, however does not use it and wears oxygen at night instead. He does not wish to use wear one while here just O2 at night.
[2021-07-11 17:46] LABS: Bedside Glucose 249 mg/dL (70-110)
[2021-07-11] MEDS: traZODone 100 MG Tablet PO (23:26)
[2021-07-11] MEDS: Atorvastatin Calcium 80 MG Tablet PO (23:27)
[2021-07-11] MEDS: 0.9% Saline Lock 10 ML Syringe IV (23:44)
[2021-07-11 23:50] LABS: Bedside Glucose 210 mg/dL (70-110)
[2021-07-12] MEDS: 0.9% Saline Lock 10 ML Syringe IV
[2021-07-12] MEDS: 0.9% Normal Saline 1,000 ML 100 ML IV (02:28)
[2021-07-12] MEDS: busPIRone 5 MG Tablet 7.5 MG PO (05:34)
[2021-07-12 05:38] VITALS: BP 187/88; PULSE 75; RESP 18; TEMP 36.7; O2SAT 100
[2021-07-12 05:46] VITALS: BP 187/88; PULSE 75
[2021-07-12] MEDS: hydrALAZINE 20 MG/ML Vial 10 MG IV (05:46)
[2021-07-12 06:32] LABS: Absolute Lymphocyte Count 1.55 X10^3/uL (0.83-4.51); Basophil# 0.03 X10^3/uL; Basophil% 0.5 % (0-1); Eosinophil# 0.22 X10^3/uL; Eosinophils% 3.4 % (0-5); Hematocrit 30.6 % (40-54); Hemoglobin 9.7 g/dL (13.0-16.5); Lymphocyte # 1.55 X10^3/ul (0.83-4.51); Lymphocyte % 23.6 % (19-41); Mean Corp Hgb Conc 31.7 g/dL (32-36); Mean Corpuscular Hgb 29.8 pg (27.0-32.0); Mean Corpuscular Volume 93.9 fL (80-94); Mean Platelet Vol. 11.1 fl (6.2-12.0); Monocyte# 0.71 X10^3/uL; Monocyte% 10.8 % (0-10); NRBC Flagged by Analyzer 0 % (0-5); Neutrophil # 4.02 X10^3/uL (2.7-7.7); Neutrophil % 61.2 % (47-70); Platelet Count 147 K/mm3 (150-450); RBC Distribution Width SD 44.2 fl (35.1-43.9); Red Blood Count 3.26 M/mm3 (4.6-6.2); White Blood Count 6.6 K/mm3 (4.4-11.0)
[2021-07-12 06:45] LABS: Bedside Glucose 129 mg/dL (70-110)
[2021-07-12 06:53] LABS: Anion Gap 2 (5-15); BUN 18 mg/dL (7-18); BUN/Creat Ratio 16.5 RATIO (10-20); Calcium,Total 8.3 mg/dL (8.5-10.1); Chloride 110 mmol/L (98-107); Creatinine, Serum 1.09 mg/dL (0.70-1.30); EST Glomerular Filtration Rate 73 mL/min (>60); Est Glom Filt Rate - Afr Amer 88 mL/min (>60); Estimated Creatinine Clearance 72.55 ml/min; Glucose 145 mg/dL (74-106); Potassium 4.2 mmol/L (3.5-5.1); Sodium Level 143 mmol/L (136-145)
[2021-07-12 09:24] VITALS: BP 153/84; PULSE 69; RESP 18; TEMP 36.7; O2SAT 99
[2021-07-12] MEDS: Isosorbide Mononitrate 30 MG Tablet PO (09:33)
[2021-07-12] MEDS: Clopidogrel Bisulfate 75 MG Tablet PO (09:33)
[2021-07-12] MEDS: ALPRAZolam 0.5 MG Tablet PO (09:33)
[2021-07-12] MEDS: FLUoxetine 20 MG Capsule 60 MG PO (09:33)
[2021-07-12] MEDS: Pregabalin 75 MG Capsule PO (09:33)
[2021-07-12] MEDS: Pantoprazole Sodium 20 MG Tablet PO (09:33)
[2021-07-12] MEDS: Carvedilol 25 MG Tablet PO (09:33)
[2021-07-12] MEDS: Finasteride 5 MG Tablet PO (09:33)
[2021-07-12] MEDS: Nystatin Powder 15gm Bottle 1 APPLIC TOPICAL (09:34)
[2021-07-12] MEDS: Clotrimazole 1 APPLIC Tube TOPICAL (09:34)
[2021-07-12] MEDS: Heparin Injection (Vial) 5,000 UNIT/ML VIAL 5000 UNIT SC (09:35)
--- NOTE | 2021-07-12 11:25 | DS.PCM_ITS ---
Providers Date of Admission: 07/10/21 Primary Care Physician: No Primary Care Phys Consultations 07/10/21 17:33 Consult: Infectious Disease Routine Consulting Provider: Raheem Corona Reason for Consult: Recent PNA, treated, back w/ FTT Adult, Falls, CXR worse appearance EMERGENT Consult: No Notified: Yes Date Notified: 07/11/21 Time Notified: 05:15 Method of Notification: Answering Service 07/11/21 12:32 Consult: Divider Operator / Pulmonary Medicine Routine Consulting Provider: Pulmonary Medicine matheus [place] Reason for Consult: bilateral pneumonia EMERGENT Consult: No Notified: Yes Date Notified: 07/11/21 Time Notified: 12:32 Method of Notification: Text Reason For Visit: FTT ADULT, [place], FALLS Diagnosis Discharge Diagnosis (1) Pneumonia: Status: Acute Code(s): J18.9 - Pneumonia, unspecified organism Qualifiers: Pneumonia type: due to unspecified organism Laterality: bilateral Lung location: unspecified part of lung Qualified Code(s): J18.9 - Pneumonia, unspecified organism Medications at Discharge Home Medications acetaminophen 1,000 mg PO BID PRN PRN 02/11/21 alprazolam 0.5 mg PO BID 02/11/21 atorvastatin 80 mg PO QHS 02/11/21 buspirone 7.5 mg PO TID 02/11/21 carvedilol 25 mg PO BID 02/11/21 clopidogrel 75 mg PO DAILY 02/11/21 finasteride 5 mg PO DAILY 02/11/21 fluoxetine 40 mg PO DAILY 02/11/21 insulin detemir U-100 28 unit SQ QHS 02/11/21 insulin lispro See Protocol SQ TIDCM 02/11/21 isosorbide mononitrate 30 mg PO DAILY 02/11/21 losartan 100 mg PO DAILY 02/11/21 nitroglycerin 0.4 mg SL Q5M PRN 02/11/21 pantoprazole 20 mg PO DAILY 02/11/21 pregabalin [Lyrica] 75 mg PO BID 05/13/21 nystatin [Nyamyc] 1 applic TOPICAL BID #0 g 06/28/21 clotrimazole 1 applic TOPICAL BID #30 g 07/02/21 fluoxetine 20 mg PO DAILY #0 cap 07/02/21 trazodone 100 mg PO QHS #0 tab 07/02/21 exenatide microspheres 2 mg SUBCUT SA 07/10/21 furosemide 40 mg PO LUNCH 07/10/21 spironolactone 12.5 mg PO DAILY 07/10/21 Hospital Course Operations None Procedures None Summary of Care Provided Minutes Spent on Discharge: 45 Hospital Course: Patient is a 61-year-old male with a past medical history as ou tlined was admitted through the ED with a complaint of lethargy and hypotension. Patient had recently been discharged in early June 2021 after a prolonged admission for right upper and lower lobe pneumonia which was treated with broad- spectrum antibiotics. On discharge, he was sent home on Levaquin. He had had a swallow test done on July 01, 2021 which showed evidence of silent aspiration and it was recommended that he should be on a modified diet. He was admitted with a complaint of worsening weakness and hypotension. Creatinine was significant at 2.15 and urinalysis was negative. WBC was 8000. Chest x-ray was read as bibasilar opacities which appear to be chronic and unchanged from prev ious x-rays. He was admitted and managed for probable healthcare associated pneumonia and started on broad-spectrum antimicrobials as well as hydrated with IV fluids. Infectious disease was consulted as well as pulmonology. Pulmonology did not think that this was a recurrence of his pneumonia and so antibiotics were stopped. ID also agreed with this assertion and did not think the patient had any evidence of new infection. Antibiotics were therefore stopped. His hospital course was not complicated and he remained stable. Patient was frail but absolutely refused probable placement and insisted on being discharged home. Patient was therefore discharged him on 07/12/2021 and is to follow-up with his primary care doctor, and pulmonology. Patient was seen and examined prior to discharge. He had no complaints and wanted to be discharged home. He said he had been able to ambulate without assistance with. Review of systems otherwise negative. Labs and vitals reviewed. Home medication reviewed and reconciled. Physical Exam Const alert, oriented x3 and no apparent distress General Appearance: cooperative and comfortable Orientation / Consciousness: awake Exam Limitations: no limitations HEENT normocephalic, head/scalp atraumatic, hearing grossly normal bilaterally and moist oral mucous membranes Eyes PERRL, EOMs intact bilaterally and conjunctivae normal Neck no lymphadenopathy and supple Resp no retractions and no use of accessory muscles Resp Narrative: diminished breath sounds bibasally, no wheezes, few crackles bilaterally. on room air Cardio regular rate, regular rhythm, S1 normal heart sound, S2 normal heart sound and no murmurs GI normal to inspection, nondistended, normoactive bowel sounds, soft to palpation, non-tender and non-distended Extremity normal to inspection, full ROM and no clubbing, cyanosis or edema Skin no rashes or lesions noted Neuro moves all extremities Neuro Narrative: lethargic Sensorium / Orientation: awake and alert Psych affect normal Medical Records Data Medical Nutrition Assessment Dietitian: Nutrition Therapy Diagnosis Start: 07/11/21 15:35 Freq: Status: Active Protocol: Document 07/11/21 15:52 SLA (Rec: 07/11/21 15:53 [facility] [id number]) Nutrition Malnutrition Evidence of Malnutrition Exists No Clinical Problem Altered Nutrient-Related Laboratory Values Etiology related to endocrine dysfunction Signs/Symptoms as evidenced by glucose 159 Status Active Problem Recommendation Dietitian Recommendations/Changes Will change diet to 2200 kimber Cardiac diet Weight / BMI Weight Weight: 263 lb 7.238 oz Body Mass Index (BMI) 38.6 ABG / Lab / Microbiology Data Result Diagrams: 07/12/21 05:40 07/12/21 05:40 Laboratory: Laboratory Results - last 24 hr 07/11/21 06:49: POC Glucose 153 H 07/11/21 11:22: POC Glucose 238 H 07/11/21 17:24: POC Glucose 249 H 07/11/21 23:17: POC Glucose 210 H 07/12/21 05:40: WBC 6.6, RBC 3.26 L, Hgb 9.7 L, Hct 30.6 L, MCV 93.9, MCH 29.8, MCHC 31.7 L, RDW Std Deviation 44.2 H, RDW Coeff of James 13.0, Plt Count 147 L, MPV 11.1, Immature Gran % (Auto) 0.500, Neut % (Auto) 61.2, Lymph % (Auto) 23.6, [place] % (Auto) 10.8 H, Eos % (Auto) 3.4, Baso % (Auto) 0.5, Absolute Neuts (auto) 4.0, Absolute Lymphs (auto) 1.55, Nucleated RBC % 0 07/12/21 05:40: Sodium 143, Potassium 4.2, Chloride 110 H, Carbon Dioxide 31.0, Anion Gap 2 L, BUN 18, Creatinine 1.09, Estim Creat Clear Calc 72.55, Est GFR (MDRD) Af Amer 88, Est GFR (MDRD) Non-Af 73, BUN/Creatinine Ratio 16.5, Glucose 145 H, Calcium 8.3 L 07/12/21 06:39: POC Glucose 129 H Microbiology: Microbiology 07/10/21 15:00 Blood Culture (Wb) - Right Hand Blood Culture - Preliminary No growth in 48 hours. 07/11/21 15:07 Interface Orders Respiratory Panel (PCR) - Final 07/10/21 18:45 Urine, Clean Catch Streptococcus pneumoniae Antigen (M - Final 07/10/21 18:45 Urine, Clean Catch Legionella Antigen - Final 07/10/21 16:55 Mucosa - Nose SARS-CoV-2 Antigen (Rapid) - Final D/C Instructions Discharge Diet: Low fat / Low cholesterol and - (modified diet for aspiration) Discharge Activity: Return to Normal Activity Weight Bearing Status: Weight bearing as tolerated Call your doctor if you observe: Fever of 101 or Higher, Shortness of breath, Dizziness, Swelling in the ankles, Chest pain and Increased palpitations (irregular heartbeat) Meaningful Use Info Meaningful Use Diagnoses (Choose all that apply): None applicable Discharge Plan Admission Admit Date/Time: 07/10/21 16:25 Primary Reason for Your Visit: debility Attending Provider: Nona Salcedo Primary Care Provider: Care Physician,No Primary Consulting Providers: Raheem Corona ; Rosendo Foreman ; Stefano Lanier ; Sonal George WINDOWS DESKTOP ENGINEER Instructions Patient Instructions: ED Chest Pain, Noncardiac, ED Weakness (Uncertain Cause) Discharge Orders/Prescriptions Prescriptions: Continued fluoxetine 40 MG capsule 40 mg PO DAILY RF: 0 atorvastatin 80 MG tablet 80 mg PO QHS RF: 0 carvedilol 25 MG tablet 25 mg PO BID RF: 0 isosorbide mononitrate 30 MG tablet extended release 24 hr 30 mg PO DAILY RF: 0 clopidogrel 75 MG tablet 75 mg PO DAILY RF: 0 acetaminophen 500 MG tablet 1,000 mg PO BID PRN PRN (Reason: Pain 1-10 Or Fever) RF: 0 pantoprazole 20 MG tablet 20 mg PO DAILY RF: 0 alprazolam 0.5 MG tablet 0.5 mg PO BID RF: 0 nitroglycerin 0.4 MG tablet, sublingual 0.4 mg SL Q5M PRN (Reason: Chest Pain) RF: 0 buspirone 7.5 MG tablet 7.5 mg PO TID RF: 0 losartan 100 MG tablet 100 mg PO DAILY RF: 0 finasteride 5 MG tablet 5 mg PO DAILY RF: 0 insulin lispro 100 UNIT/ML insulin pen See Protocol unit SQ TIDCM RF: 0 insulin detemir U-100 100 UNIT/ML insulin pen 28 unit SQ QHS RF: 0 pregabalin [Lyrica] 75 mg Capsule 75 mg PO BID RF: 0 nystatin [Nyamyc] 100,000 unit/gram Powder 1 applic topical BID Qty: 0 RF: 0 clotrimazole 1 % cream 1 applic topical BID Qty: 30 RF: 2 trazodone 100 MG tablet 100 mg PO QHS Qty: 0 RF: 0 fluoxetine 20 MG capsule 20 mg PO DAILY Qty: 0 RF: 0 spironolactone 50 mg tablet 12.5 mg PO DAILY RF: 0 exenatide microspheres 2 mg/0.65 mL Pen Injector 2 mg SUBCUT SA RF: 0 furosemide 40 MG tablet 40 mg PO LUNCH RF: 0 Referrals / Follow Up: Rosendo Foreman MD [STAFF PHYSICIAN] - Within 2 Weeks Care Physician,No Primary [Primary Care Provider] - Disposition Disposition (needs filled in before D/C Order can be placed): Home Health Service Charges/Coding Visit Charges Inpatient E&M: 21539 Disch Hosp
[2021-07-12] MEDS: Insulin Lispro 100 UNIT/ML INSULN.PEN SC (12:23)
[2021-07-12 12:35] LABS: Bedside Glucose 185 mg/dL (70-110)
[2021-07-12 13:18] VITALS: BP 149/75; PULSE 95; RESP 18; TEMP 36.2; O2SAT 96
== END 2021-07-12 13:40 | disposition home health service (06) | DRG 314 ==
LOC: ED 16:28 → MS3 16:50
PROVIDERS: Admitting Provider Family Medicine; Emergency Provider Emergency Medicine; Visit Provider Student in an Organized Health Care Education/Training Program
DX: I95.9 Hypotension, unspecified (principal); G93.41 Metabolic encephalopathy; J96.11 Chronic respiratory failure with hypoxia; N17.9 Acute kidney failure, unspecified; I13.0 Hypertensive heart and chronic kidney disease with heart failure and stage 1 through stage 4 chronic kidney disease, or unspecified chronic kidney disease; I44.0 Atrioventricular block, first degree; W18.11XA Fall from or off toilet without subsequent striking against object, initial encounter; Z91.81 History of falling; Y93.9 Activity, unspecified; Y92.009 Unspecified place in unspecified non-institutional (private) residence as the place of occurrence of the external cause; D64.9 Anemia, unspecified; E11.51 Type 2 diabetes mellitus with diabetic peripheral angiopathy without gangrene; R53.83 Other fatigue; J44.9 Chronic obstructive pulmonary disease, unspecified; I12.9 Hypertensive chronic kidney disease with stage 1 through stage 4 chronic kidney disease, or unspecified chronic kidney disease; I50.9 Heart failure, unspecified; R62.7 Adult failure to thrive; E11.22 Type 2 diabetes mellitus with diabetic chronic kidney disease; E11.42 Type 2 diabetes mellitus with diabetic polyneuropathy; N18.31 Chronic kidney disease, stage 3a; E78.5 Hyperlipidemia, unspecified; F32.9 Major depressive disorder, single episode, unspecified; F41.9 Anxiety disorder, unspecified; G43.909 Migraine, unspecified, not intractable, without status migrainosus; G47.33 Obstructive sleep apnea (adult) (pediatric); H54.62 Unqualified visual loss, left eye, normal vision right eye; E66.9 Obesity, unspecified; I25.10 Atherosclerotic heart disease of native coronary artery without angina pectoris; N40.0 Benign prostatic hyperplasia without lower urinary tract symptoms; I25.2 Old myocardial infarction; K21.9 Gastro-esophageal reflux disease without esophagitis; Z87.01 Personal history of pneumonia (recurrent); Z68.38 Body mass index [BMI] 38.0-38.9, adult; Z95.5 Presence of coronary angioplasty implant and graft; Z87.442 Personal history of urinary calculi; Z79.4 Long term (current) use of insulin; Z79.899 Other long term (current) drug therapy
CPT/HCPCS: 36415; 70450; 71045; 80048; 80053; 81001; 82962; 83605; 83735; 84484; 85025; 87040; 87426; 87449; 87633; 92526; 92610; 93005; 97162; 97166; 99251; 99285; J7030; J7040; A4216; G0463

== ENCOUNTER 2021-07-25 12:27 | Emergency (ER) | payer MEDICARE, MEDICAID, SELFPAY ==
[2021-07-25] VITALS (8 sets, daily range): BP systolic 89–118; BP diastolic 58–67; PULSE 68–72; RESP 9–20; TEMP 36.4–36.6; O2SAT 96–100; BMI 38.2
--- NOTE | 2021-07-25 12:57 | ED.RN ---
PT GRUMPY COMPLAINING THAT HE DOES NOT WANT TO BE HERE. COMPLAINING ABOUT ANYTHING STAFF IS TRYING TO DO. WILL NOT ANSWER STAFF UNLESS ASKED MULTIPLE TIMES.
--- NOTE | 2021-07-25 12:58 | ED.RN ---
THIS CREATIVE STRATEGIST ROOMED PT. PT ASKED IF HE COULD REMOVE MASK. I STATED THAT HE COULD DO SO ONCE I LEFT THE ROOM. HE REMOVED THE MASK ANYHOW. PT DISRESPECTFUL AND UNCOOPERTIVE WITH THIS CREATIVE STRATEGIST. I PLACED HIM IN HIS GOWN AND REMINDED HIM THAT IF SOMEONE ENTERS THE ROOM HE NEEDS TO PLACE HIS MASK BACK ON AND LEFT THE ROOM
--- NOTE | 2021-07-25 13:52 | EKG12_ITS ---
Test Reason : SOB Blood Pressure : / mmHG Vent. Rate : 067 BPM Atrial Rate : 067 BPM P-R Int : 230 ms QRS Dur : 096 ms QT Int : 422 ms P-R-T Axes : 082 017 042 degrees QTc Int : 445 ms Sinus rhythm with 1st degree A-V block Otherwise normal ECG Confirmed by ARAMIS JOHNS, MAURO ([id number]), associate editor SHARAN DOE ([id number]) on 07/28/2021 12:45:49 PM Referred By: RESHMA Confirmed By:MAURO SELF MD
--- NOTE | 2021-07-25 13:52 | RAD_ITS ---
STUDY: X-RAY CHEST REASON FOR EXAM: Male, 61 years old. Shortness of breath and chest pain. TECHNIQUE: Single AP portable view of the chest. COMPARISON: Comparison is made with prior study dated 07/10/2021. FINDINGS: Stable elevation of the right hemidiaphragm. Stable increased markings at the lung bases suggestive of bibasilar atelectasis and thickening of the right minor fissure. Normal size heart. Normal mediastinum and pat. Normal visualized pulmonary arteries. Normal visualized aortic arch and descending thoracic aorta. There are diffuse degenerative changes of the visualized thoracic spine. Normal visualized ribs, clavicles, and shoulders. There is no demonstrated abnormality of the visualized soft tissue structures of the upper abdomen. RAD/Chest 1 View (Portable) IMPRESSION: Stable elevation of the right hemidiaphragm with increased markings at the lung bases suggests bibasilar atelectasis. Electronically Signed: Den Carver MD at 15:21 EDT , Service support ,
--- NOTE | 2021-07-25 14:00 | EDS_ITS ---
HPI History of Present Illness Chief Complaint: Shortness of Breath Detail of Chief Complaint: Acute on chronic leg swelling. Informant: patient and spouse/S.O. Onset/Context/Timing Onset: Days Context: Gradual Onset Timing: Intermittent Current Severity: Mild Maximum Severity: Mild Narrative Narrative: -year-old male extensive past medical history of CAD with stents on Plavix, diabetes, COPD, peripheral arterial disease with peripheral extremity stents and known CHF on Lasix. Patient states he did not feel bad. His home nurse thought his swelling in his legs was worse than her crackles on his exam and wanted him evaluated. He denies chest pain. He denies shortness of breath he is chronically on home O2 2 to 3 L which is what he is on currently. He denies any fever or chills. Prior similar symptoms: Yes Recent Illness/Hospitalization: Yes PFSH [facility] Medical History Amputation of one or more toes Anxiety Bronchiectasis with (acute) exacerbation CAD (coronary artery disease) Chest pain Congestive heart failure (CHF) COPD (chronic obstructive pulmonary disease) CPAP (continuous positive airway pressure) dependence Depression Diabetes GERD (gastroesophageal reflux disease) Hypertension Kidney stones Kidney stones Migraines Myocardial infarct Non-smoker On home oxygen therapy PAD (peripheral artery disease) Pneumonia Pulmonary nodule, left Severe sepsis Sleep apnea Vision loss of left eye Home Medications acetaminophen 1,000 mg PO BID PRN PRN 02/11/21 [History Last Taken 07/09/21] alprazolam 0.5 mg PO BID 02/11/21 [History Last Taken 07/10/21] atorvastatin 80 mg PO QHS 02/11/21 [History Last Taken 07/09/21] buspirone 7.5 mg PO TID 02/11/21 [History Last Taken 07/10/21] carvedilol 25 mg PO BID 02/11/21 [History Last Taken 07/10/21] clopidogrel 75 mg PO DAILY 02/11/21 [History Last Taken 07/10/21] finasteride 5 mg PO DAILY 02/11/21 [History Last Taken 07/10/21] fluoxetine 40 mg PO DAILY 02/11/21 [History Last Taken 07/10/21] insulin detemir U-100 28 unit SQ QHS 02/11/21 [History Last Taken 07/09/21] insulin lispro See Protocol SQ TIDCM 02/11/21 [History Last Taken 07/10/21] isosorbide mononitrate 30 mg PO DAILY 02/11/21 [History Last Taken 07/10/21] losartan 100 mg PO DAILY 02/11/21 [History Last Taken 07/10/21] nitroglycerin 0.4 mg SL Q5M PRN 02/11/21 [History Last Taken 02/08/21] pantoprazole 20 mg PO DAILY 02/11/21 [History Last Taken 07/10/21] pregabalin [Lyrica] 75 mg PO BID 05/13/21 [History Last Taken 07/10/21] nystatin [Nyamyc] 1 applic TOPICAL BID #0 g 06/28/21 [Rx Last Taken Unknown] clotrimazole 1 applic TOPICAL BID #30 g 07/02/21 [Rx Last Taken 07/09/21] fluoxetine 20 mg PO DAILY #0 cap 07/02/21 [Rx Last Taken 07/10/21] trazodone 100 mg PO QHS #0 tab 07/02/21 [Rx Last Taken 07/09/21] exenatide microspheres 2 mg SUBCUT SA 07/10/21 [History Last Taken 07/05/21] furosemide 40 mg PO LUNCH 07/10/21 [History Last Taken 07/09/21] spironolactone 12.5 mg PO DAILY 07/10/21 [History Last Taken 07/09/21] albuterol sulfate 90 mcg/actuation aerosol inhaler 2 puff INHALATION Q4H PRN #8.5 g 07/24/21 [Rx Last Taken Unknown] Allergy/AdvReac Type Severity Reaction Status Date / Time allopurinol AdvReac Vomiting Verified 07/25/21 12:28 Influenza Virus Vaccines AdvReac Vomiting Verified 07/25/21 12:28 pneumococcal vaccine AdvReac Vomiting Verified 07/25/21 12:28 Family History Mother Diabetes Heart disease CHF Father Heart disease ND/CAD Myocardial infarction Surgical History H/O lithotripsy History of ankle surgery History of coronary artery stent placement Hx of toe surgery S/P peripheral artery angioplasty with stent placement S/P thyroid surgery Social History household members: spouse housing: apartment Smoking Status: Never smoker alcohol intake: never substance use type: does not use ROS ROS ED ROS Narrative Patient denies recent illness. He does have swelling in his lower extremities worse than his baseline. Review of Systems ROS Unobtainable: Denies due to encephalopathy Constitutional Constitutional ED: Denies chills or fever(s) Eyes Eyes: Denies change in vision ENT ENT ED: Denies ear pain or sore throat Cardiovascular Cardiovascular: Denies chest pain Respiratory/Chest Respiratory/Chest: Denies cough or dyspnea Gastrointestinal Gastrointestinal: Denies abdominal pain, diarrhea, melena, nausea or vomiting Genitourinary Genitourinary ED: Denies dysuria Musculoskeletal Musculoskeletal: Denies myalgias Integumentary Denies rash Neurologic Neurologic: Denies headache(s) Endocrine Endocrinology: Denies polyuria Allergic/Immunologic Allergic/Immunologic ED: Denies urticaria EXAM Physical Exam Narrative Exam Narrative: 59-year-old male no acute distress. Vital signs stable. Initial blood pressure 89/58 currently is about 100/60. Is in no distress. H EENT exam unremarkable. Neck nontender no lymphadenopathy no JVD. Lungs clear to auscultation bilaterally. Heart regular rhythm no murmur. Rate about 70. Abdomen soft nontender normal bowel sounds no peritoneal signs. Extremities mov es all 41+ pitting edema both lower extremities. Calves nontender. Neurologically is awake alert with no focal motor deficits. Patient's O2 sat is 96% on 2 to 3 L. Const Vital Signs: 07/25/21 12:29 07/25/21 12:31 07/25/21 12:44 Temperature 97.6 F L 97.6 F L Temperature Source Temporal Temporal Pulse Rate 71 71 Respiratory Rate 20 H 20 H Respiratory Effort Non-Labored Short of Breath Respiratory Depth Normal Respiratory Pattern Normal Blood Pressure 89/58 L 89/58 L Blood Pressure Mean 68 68 Pulse Ox 96 96 Oxygen Delivery Method Nasal Cannula Nasal Cannula Nasal Cannula Oxygen Flow Rate (L/min) 3 2 2 07/25/21 14:04 07/25/21 14:11 07/25/21 14:53 Temperature 97.8 F Temperature Source Temporal Pulse Rate 68 72 Respiratory Rate 19 H 17 Respiratory Effort Respiratory Depth Respiratory Pattern Blood Pressure 114/63 92/64 Blood Pressure Mean 80 73 Pulse Ox 98 99 98 Oxygen Delivery Method Room Air Nasal Cannula Nasal Cannula Oxygen Flow Rate (L/min) 2 2 2 07/25/21 16:19 Temperature Temperature Source Pulse Rate 70 Respiratory Rate 9 L Respiratory Effort Respiratory Depth Respiratory Pattern Blood Pressure 118/67 Blood Pressure Mean 84 Pulse Ox 100 Oxygen Delivery Method Nasal Cannula Oxygen Flow Rate (L/min) 2 Positive well nourished, well developed and obese General Appearance ED: well developed and NAD; Negative for cyanotic or diaphoretic Nutritional Appearance: obese HEENT Reports moist mucous membranes Negative for trauma or tenderness Eyes PERRL and EOMs intact bilaterally Neck no lymphadenopathy, supple and no JVD General: Negative for tenderness Chest Wall inspection of chest normal and palpation of chest normal Resp normal respiratory effort and clear to auscultation bilaterally Auscultation: Negative for rales, rhonchi or wheezes Cardio regular rate, regular rhythm, S1 normal heart sound, S2 normal heart sound and no murmurs GI normal to inspection, nondistended, normoactive bowel sounds, non-tender, non- distended and no masses Inspection: Negative for abdominal distention Auscultation: normoactive bowel sounds Palpation: soft; Negative for tender, guarding or rebound tenderness present Back/Spine no CVA tenderness Extremity Extremity Narrative: 1+ edema bilaterally. General Extremety ED: Yes edema; Negative for tenderness General Extremity: edema Neuro oriented x3 and CN's II-XII intact bilaterally Sensorium / Orientation: alert; Negative for orientation impaired, lethargic or stuporous Motor Exam: strength 5/5 throughout Psych mental status grossly normal Skin no rashes or lesions noted and no wounds MDM MDM MDM Narrative Medical decision making narrative: 61-year-old male with acute on chronic peripheral edema sent in by home nurse for evaluation. He denies complaints. Repeat exam patient is doing well at 4:25 PM patient is doing well. No complaints. Vital signs are stable. He and I and his significant other discussed all his test results. The account of him being discharged to home and outpatient follow-up. Return if worse Lab Data Attestation: I reviewed the patient's lab results. Lab results narrative: CBC shows a white count of 7. Hemoglobin 9.7. Which is his baseline anemia. Electrolytes unremarkable gap of 3 creatinine 1.54. Glucose 201. Troponin normal at 11 and BNP at 89. Labs: Laboratory Results - last 24 hr 07/25/21 07/25/21 07/25/21 13:55 13:55 13:55 WBC 7.1 RBC 3.30 L Hgb 9.7 L Hct 31.3 L MCV 94.8 H MCH 29.4 MCHC 31.0 L RDW Std Deviation 43.8 RDW Coeff of James 12.7 Plt Count 170 MPV 10.9 Immature Gran % (Auto) 0.700 Neut % (Auto) 64.5 Lymph % (Auto) 21.6 Stark % (Auto) 10.2 H Eos % (Auto) 2.4 Baso % (Auto) 0.6 Absolute Neuts (auto) 4.6 Absolute Lymphs (auto) 1.54 Nucleated RBC % 0 Sodium 141 Potassium 4.3 Chloride 105 Carbon Dioxide 33.0 H Anion Gap 3 L BUN 27 H Creatinine 1.54 H Estim Creat Clear Calc 51.35 Est GFR (MDRD) Af Amer 59 L Est GFR (MDRD) Non-Af 49 L BUN/Creatinine Ratio 17.5 Glucose 201 H Calcium 8.7 Troponin I High Sens 11 B-Natriuretic Peptide 89.7 Radiography Chest X-Ray - ED: 1 View, Read by ED Physician, Heart, Lungs, Mediastinum, Bony Structures, No Acute Disease and Chronic Changes Diagnostic Testing: Radiology Impression Chest X-Ray 07/25/21 13:52 IMPRESSION: Stable elevation of the right hemidiaphragm with increased markings at the lung bases suggests bibasilar atelectasis. Electronically Signed: Den Carver MD at 15:21 EDT , Service support , Portable single view chest x-ray interpreted by myself the radiologist shows chronic changes. Elevated right hemidiaphragm. No significant pulmonary edema nor pleural effusions nor infiltrate. Rhythm Strip Rhythm Strip: Sinus Rhythm Rate: 67 Ectopy: None EKG Initial EKG: Attestation: I personally reviewed and interpreted this EKG as follows: Interpretation: Sinus Rhythm Comments: Normal sinus rhythm rate of 67 no acute signs of ND or ischemia. First-degree AV block with a NH interval of 230. Prior EKG tracings: not available for review Discharge Plan Triage Chief Complaint: Shortness of Breath ED Provider: Cuba Ugarte Dx/Rx/DC Orders Clinical Impression: Peripheral edema Prescriptions: No Action albuterol sulfate 90 mcg/actuation HFA aerosol inhaler 2 puff inhalation Q4H PRN (Reason: shortness of breath or wheezing) Qty: 8.5 RF: 3 fluoxetine 40 MG capsule 40 mg PO DAILY RF: 0 atorvastatin 80 MG tablet 80 mg PO QHS RF: 0 carvedilol 25 MG tablet 25 mg PO BID RF: 0 isosorbide mononitrate 30 MG tablet extended release 24 hr 30 mg PO DAILY RF: 0 clopidogrel 75 MG tablet 75 mg PO DAILY RF: 0 acetaminophen 500 MG tablet 1,000 mg PO BID PRN PRN (Reason: Pain 1-10 Or Fever) RF: 0 pantoprazole 20 MG tablet 20 mg PO DAILY RF: 0 alprazolam 0.5 MG tablet 0.5 mg PO BID RF: 0 nitroglycerin 0.4 MG tablet, sublingual 0.4 mg SL Q5M PRN (Reason: Chest Pain) RF: 0 buspirone 7.5 MG tablet 7.5 mg PO TID RF: 0 losartan 100 MG tablet 100 mg PO DAILY RF: 0 finasteride 5 MG tablet 5 mg PO DAILY RF: 0 insulin lispro 100 UNIT/ML insulin pen See Protocol unit SQ TIDCM RF: 0 insulin detemir U-100 100 UNIT/ML insulin pen 28 unit SQ QHS RF: 0 pregabalin [Lyrica] 75 mg Capsule 75 mg PO BID RF: 0 nystatin [Nyamyc] 100,000 unit/gram Powder 1 applic topical BID Qty: 0 RF: 0 clotrimazole 1 % cream 1 applic topical BID Qty: 30 RF: 2 trazodone 100 MG tablet 100 mg PO QHS Qty: 0 RF: 0 fluoxetine 20 MG capsule 20 mg PO DAILY Qty: 0 RF: 0 spironolactone 50 mg tablet 12.5 mg PO DAILY RF: 0 exenatide microspheres 2 mg/0.65 mL Pen Injector 2 mg SUBCUT SA RF: 0 furosemide 40 MG tablet 40 mg PO LUNCH RF: 0 Primary Care Provider: Care Physician,No Primary Referrals: Care Physician,No Primary [Primary Care Provider] - Activity Restrictions/Additional Instructions: Continue current medications. Follow-up with your primary care provider. Disposition Disposition: Home, Self Care
--- NOTE | 2021-07-25 14:09 | ED.RN ---
PT C/O ABOUT HAVING ANOTHER COVID SWAB. THIS RN IS NOT SURE HOW ACCURATE THE COVID SWAB WILL BE D/T THE SAMPLE BEING INSUFFICIENT, PT JERKED HIS HEAD AWAY BOTH TIMES THE SWAB WAS PLACED IN THE NARES.
[2021-07-25 14:16] LABS: Absolute Lymphocyte Count 1.54 X10^3/uL (0.83-4.51); Absolute Neutrophil Count 4.6 X10^3/uL (2.0-7.7); Basophil# 0.04 X10^3/uL; Basophil% 0.6 % (0-1); Eosinophil# 0.17 X10^3/uL; Eosinophils% 2.4 % (0-5); Hematocrit 31.3 % (40-54); Hemoglobin 9.7 g/dL (13.0-16.5); Lymphocyte # 1.54 X10^3/ul (0.83-4.51); Lymphocyte % 21.6 % (19-41); Mean Corpuscular Hgb 29.4 pg (27.0-32.0); Mean Corpuscular Volume 94.8 fL (80-94); Mean Platelet Vol. 10.9 fl (6.2-12.0); Monocyte# 0.73 X10^3/uL; Monocyte% 10.2 % (0-10); NRBC Flagged by Analyzer 0 % (0-5); Neutrophil % 64.5 % (47-70); Platelet Count 170 K/mm3 (150-450); RBC Distribution Width CV 12.7 % (11.6-14.6); RBC Distribution Width SD 43.8 fl (35.1-43.9); White Blood Count 7.1 K/mm3 (4.4-11.0)
[2021-07-25 14:33] LABS: Anion Gap 3 (5-15); BUN 27 mg/dL (7-18); BUN/Creat Ratio 17.5 RATIO (10-20); Calcium,Total 8.7 mg/dL (8.5-10.1); Chloride 105 mmol/L (98-107); Creatinine, Serum 1.54 mg/dL (0.70-1.30); EST Glomerular Filtration Rate 49 mL/min (>60); Est Glom Filt Rate - Afr Amer 59 mL/min (>60); Estimated Creatinine Clearance 51.35 ml/min; Glucose 201 mg/dL (74-106); Potassium 4.3 mmol/L (3.5-5.1); Sodium Level 141 mmol/L (136-145); Troponin-I HS 11 pg/mL (3.0-78.0)
[2021-07-25 14:40] LABS: BNP,B-Type NATRIURETIC PEPTIDE 89.7 pg/mL (0-100)
== END 2021-07-25 17:00 | disposition home or self-care (01) ==
PROVIDERS: Emergency Provider Emergency Medicine
DX: R60.0 Localized edema (principal); I44.0 Atrioventricular block, first degree; E66.9 Obesity, unspecified; Z68.38 Body mass index [BMI] 38.0-38.9, adult; E11.51 Type 2 diabetes mellitus with diabetic peripheral angiopathy without gangrene; F32.9 Major depressive disorder, single episode, unspecified; F41.9 Anxiety disorder, unspecified; I25.10 Atherosclerotic heart disease of native coronary artery without angina pectoris; I11.0 Hypertensive heart disease with heart failure; I50.9 Heart failure, unspecified; I25.2 Old myocardial infarction; J44.9 Chronic obstructive pulmonary disease, unspecified; K21.9 Gastro-esophageal reflux disease without esophagitis; G47.30 Sleep apnea, unspecified; G43.909 Migraine, unspecified, not intractable, without status migrainosus; Z86.19 Personal history of other infectious and parasitic diseases; Z87.442 Personal history of urinary calculi; Z95.5 Presence of coronary angioplasty implant and graft; Z79.4 Long term (current) use of insulin; Z79.02 Long term (current) use of antithrombotics/antiplatelets; Z99.81 Dependence on supplemental oxygen; Z79.899 Other long term (current) drug therapy
CPT/HCPCS: 71045; 80048; 83880; 84484; 85025; 87426; 93005; 99284; A4216

== ENCOUNTER 2021-08-06 08:08 | Inpatient (IN) | payer MEDICARE, MEDICAID, SELFPAY ==
[2021-08-06] VITALS (25 sets, daily range): BP systolic 107–189; BP diastolic 66–141; PULSE 94–114; RESP 12–40; TEMP 36.5–37.6; O2SAT 86–100; BMI 43.5; BMI 38.3
--- NOTE | 2021-08-06 08:24 | EKG12_ITS ---
Test Reason : SOB Blood Pressure : / mmHG Vent. Rate : 114 BPM Atrial Rate : 114 BPM P-R Int : 130 ms QRS Dur : 090 ms QT Int : 334 ms P-R-T Axes : 037 018 038 degrees QTc Int : 460 ms Somatic/Motion Artifact Sinus tachycardia Confirmed by ROLAND JOHNS, FAUSTINA ([id number]), book or script editor SHARAN DOE ([id number]) on 08/12/2021 7:38:07 AM Referred By: RESHMA Confirmed By:FAUSTINA WATKINS MD
--- NOTE | 2021-08-06 08:27 | ED.VIS.DYS ---
HPI History of Present Illness Chief Complaint: Shortness of Breath Detail of Chief Complaint: Shaking and chills. Informant: patient and EMS Onset/Context/Timing Onset: Today Context: gradual Timing: Continuous Current Severity: Mild Maximum Severity: Mild Associated Symptoms chills; Negative for fever Chest Pain: Positive for None Narrative Narrative: 61-year-old male extensive past medical history including restrictive airway disease, hypertension, diabetes, coronary disease with stents on Plavix. Also peripheral arterial disease. Patient was brought in by squad said he was short of breath. Also shaking and chills. Denies chest pain. States that he was vaccinated for Covid. Denies any hemoptysis. He is on home O2 typically 3 L. On squad arrival to home he was hypoxic. PE Risk Factors: Positive for Prior DVT or PE; Negative for Cancer, OCP + Smoking + > 35, Recent immobilization, Recent surgery and Recent travel Prior similar symptoms: Yes Recent Illness/Hospitalization: Yes PFSH PFS Medical History Amputation of one or more toes Anxiety Bronchiectasis with (acute) exacerbation CAD (coronary artery disease) Chest pain Congestive heart failure (CHF) COPD (chronic obstructive pulmonary disease) CPAP (continuous positive airway pressure) dependence Depression Diabetes GERD (gastroesophageal reflux disease) Hypertension Kidney stones Kidney stones Migraines Myocardial infarct Non-smoker On home oxygen therapy PAD (peripheral artery disease) Pneumonia Pulmonary nodule, left Severe sepsis Sleep apnea Vision loss of left eye Home Medications acetaminophen 1,000 mg PO BID PRN PRN 02/11/21 [History Last Taken 07/09/21] alprazolam 0.5 mg PO BID 02/11/21 [History Last Taken 07/10/21] atorvastatin 80 mg PO QHS 02/11/21 [History Last Taken 07/09/21] buspirone 7.5 mg PO TID 02/11/21 [History Last Taken 07/10/21] carvedilol 25 mg PO BID 02/11/21 [History Last Taken 07/10/21] clopidogrel 75 mg PO DAILY 02/11/21 [History Last Taken 07/10/21] finasteride 5 mg PO DAILY 02/11/21 [History Last Taken 07/10/21] fluoxetine 40 mg PO DAILY 02/11/21 [History Last Taken 07/10/21] insulin detemir U-100 28 unit SQ QHS 02/11/21 [History Last Taken 07/09/21] insulin lispro See Protocol SQ TIDCM 02/11/21 [History Last Taken 07/10/21] isosorbide mononitrate 30 mg PO DAILY 02/11/21 [History Last Taken 07/10/21] losartan 100 mg PO DAILY 02/11/21 [History Last Taken 07/10/21] nitroglycerin 0.4 mg SL Q5M PRN 02/11/21 [History Last Taken 02/08/21] pantoprazole 20 mg PO DAILY 02/11/21 [History Last Taken 07/10/21] pregabalin [Lyrica] 75 mg PO BID 05/13/21 [History Last Taken 07/10/21] nystatin [Nyamyc] 1 applic TOPICAL BID #0 g 06/28/21 [Rx Last Taken Unknown] clotrimazole 1 applic TOPICAL BID #30 g 07/02/21 [Rx Last Taken 07/09/21] fluoxetine 20 mg PO DAILY #0 cap 07/02/21 [Rx Last Taken 07/10/21] trazodone 100 mg PO QHS #0 tab 07/02/21 [Rx Last Taken 07/09/21] exenatide microspheres 2 mg SUBCUT SA 07/10/21 [History Last Taken 07/05/21] furosemide 40 mg PO LUNCH 07/10/21 [History Last Taken 07/09/21] spironolactone 12.5 mg PO DAILY 07/10/21 [History Last Taken 07/09/21] albuterol sulfate 90 mcg/actuation aerosol inhaler 2 puff INHALATION Q4H PRN #8.5 g 07/24/21 [Rx Last Taken Unknown] Allergy/AdvReac Type Severity Reaction Status Date / Time allopurinol AdvReac Vomiting Verified 08/06/21 08:13 Influenza Virus Vaccines AdvReac Vomiting Verified 08/06/21 08:13 pneumococcal vaccine AdvReac Vomiting Verified 08/06/21 08:13 Family History Mother Diabetes Heart disease CHF Father Heart disease ME/CAD Myocardial infarction Surgical History H/O lithotripsy History of ankle surgery History of coronary artery stent placement Hx of toe surgery S/P peripheral artery angioplasty with stent placement S/P thyroid surgery Social History household members: spouse housing: apartment Smoking Status: Never smoker alcohol intake: never substance use type: does not use ROS ROS ED ROS Narrative Chills. Shortness of breath. Denies vomiting diarrhea. Review of Systems ROS Unobtainable: Denies due to encephalopathy Constitutional Constitutional ED: Reports chills; Denies fever(s) Eyes Eyes: Denies change in vision ENT ENT ED: Denies ear pain or sore throat Cardiovascular Cardiovascular: Denies chest pain or palpitations Respiratory/Chest Respiratory/Chest: Reports dyspnea Gastrointestinal Gastrointestinal: Denies abdominal pain, diarrhea, nausea or vomiting Genitourinary Genitourinary ED: Denies dysuria or hematuria Musculoskeletal Musculoskeletal: Denies myalgias Integumentary Denies rash Neurologic Neurologic: Denies headache(s) Psychiatric Psychiatric: Denies depression Endocrine Endocrinology: Denies polyuria Hematologic/Lymphatic Hematologic/Lymphatic: Denies easy bruising Allergic/Immunologic Allergic/Immunologic ED: Denies urticaria EXAM Physical Exam Narrative Exam Narrative: 61-year-old male. Shaking. Vital signs are stable. Pulse ox was 86% now 95% on CPAP. Afebrile. Does not look septic or toxic. H EENT exam unremarkable. Neck nontender no lymphadenopathy no JVD. Lungs diminished breath sounds bilaterally. Heart tachycardic no murmur. Rate about 110. Abdomen obese soft nontender normal bowel sounds no peritoneal signs. Moving all four extremities. Right foot the toes have been amputated. Calves are nontender. Neurologically is awake and alert. He is answering questions and following commands. Const Vital Signs: 08/06/21 08:09 08/06/21 08:15 08/06/21 08:21 Temperature 98.4 F Temperature Source Temporal Pulse Rate 113 H 114 H Respiratory Rate 30 H 25 H 30 H Respiratory Effort Short of Breath Labored Respiratory Depth Deep Respiratory Pattern Tachypnea Tachypnea Blood Pressure 163/131 H Blood Pressure Mean 141 Pulse Ox 86 92 95 Oxygen Delivery Method CPAP Bi-pap CPAP Fraction of Inspired Oxygen (FIO2) 65 08/06/21 08:29 08/06/21 08:43 08/06/21 08:55 Temperature 98.4 F Temperature Source Temporal Pulse Rate 114 H 111 H 111 H Respiratory Rate 40 H 28 H 26 H Respiratory Effort Respiratory Depth Respiratory Pattern Tachypnea Tachypnea Blood Pressure 180/141 H Blood Pressure Mean 154 Pulse Ox 92 95 Oxygen Delivery Method CPAP Fraction of Inspired Oxygen (FIO2) 50 08/06/21 09:08 08/06/21 09:27 08/06/21 09:38 Temperature 98.2 F 98.2 F Temperature Source Temporal Temporal Pulse Rate 111 H 107 H Respiratory Rate 26 H 20 H Respiratory Effort Respiratory Depth Respiratory Pattern Tachypnea Blood Pressure 107/68 Blood Pressure Mean 81 Pulse Ox 95 Oxygen Delivery Method Bi-pap Fraction of Inspired Oxygen (FIO2) 50 Positive well nourished, well developed and obese; Negative for cachectic, contractures or unkempt General Appearance ED: well developed; Negative for unkempt, cachectic or contractures Nutritional Appearance: obese; Negative for cachectic HEENT Reports moist mucous membranes atraumatic; Negative for trauma or tenderness Eyes PERRL and EOMs intact bilaterally Neck no lymphadenopathy, supple, no meningeal signs and no JVD General: Negative for tenderness Resp No normal respiratory effort and No clear to auscultation bilaterally Auscultation: diminished lung sounds; Negative for rales, rhonchi or wheezes Cardio regular rhythm, S1 normal heart sound, S2 normal heart sound and no murmurs Rate: tachycardic GI non-tender, non-distended and no masses Auscultation: normoactive bowel sounds Palpation: soft; Negative for tender, guarding or rebound tenderness present Back/Spine normal to inspection Extremity normal to inspection General Extremety ED: Negative for edema or tenderness General Extremity: Negative for edema Neuro oriented x3 Sensorium / Orientation: alert, oriented to person, oriented to place and orientation impaired; Negative for oriented to time, confused, lethargic or stuporous Motor Exam: strength 5/5 throughout Psych mental status grossly normal Appearance: Negative for unkempt Skin Lesions: no lesions Rashes: no rashes MDM MDM MDM Narrative Medical decision making narrative: 61-year-old male extensive past medical history presents hypoxic. Will undergo a septic work-up. Large differential including Covid, pneumonia, CHF, exacerbation of underlying lung disease etc. He will receive DuoNeb aerosol and Solu-Medrol. Repeat exam patient is doing well at 10:12 AM. Patient will be started on IV antibiotics Rocephin and Zithromax for bilateral pneumonia. A second Covid test will be obtained which is the PCR because the initial was negative. Patient will be admitted to the hospital hospitalist is on page. Admitted for hypoxia, bilateral pneumonia, respiratory failure, sepsis, dehydration and acute kidney injury. IV fluids are being given along with IV antibiotics. He already received aerosols and steroids IV. Lab Data Attestation: I reviewed the patient's lab results. Lab results narrative: CBC showed an elevated white count of 15.8. Hemoglobin of 12. No bands. PT/INR PTT unremarkable D-dimer elevated 0.65 CTA to be obtained. Electrolytes show a gap of 145 creatinine of 2.19 therefore a CTA cannot be done due to the kidney function. Liver enzymes are unremarkable. Glucose 151. Lactic acid of 2.4.. DIRECTOR GAME of 110. UA negative. Labs: Laboratory Results - last 24 hr 08/06/21 08/06/21 08/06/21 08:15 08:15 08:15 WBC 15.8 H RBC 4.18 L Hgb 12.1 L Hct 38.9 L MCV 93.1 MCH 28.9 MCHC 31.1 L RDW Std Deviation 43.4 RDW Coeff of James 12.7 Plt Count 231 MPV 10.8 Immature Gran % (Auto) 0.400 Neut % (Auto) 80.6 H Lymph % (Auto) 14.9 L [place] % (Auto) 3.0 Eos % (Auto) 0.8 Baso % (Auto) 0.3 Absolute Neuts (auto) 12.7 H Absolute Lymphs (auto) 2.36 Nucleated RBC % 0 PT 13.8 INR 1.1 APTT 25.8 D-Dimer Quant (PE/DVT) 0.65 H* Sodium 139 Potassium 4.4 Chloride 106 Carbon Dioxide 32.0 Anion Gap 1 L BUN 45 H Creatinine 2.19 H Estim Creat Clear Calc 33.84 Est GFR (MDRD) Af Amer 39 L Est GFR (MDRD) Non-Af 33 L BUN/Creatinine Ratio 20.5 H Glucose 151 H Lactic Acid Calcium 9.0 Total Bilirubin 0.40 AST 19 ALT 22 Alkaline Phosphatase 124 H B-Natriuretic Peptide Total Protein 8.0 Albumin 3.5 Globulin 4.5 H Albumin/Globulin Ratio 0.8 L Urine Color Urine Clarity Urine pH Ur Specific [place] Urine Protein Urine Glucose (UA) Urine Ketones Urine Occult Blood Urine Nitrite Urine Bilirubin Urine Urobilinogen Ur Leukocyte Esterase Urine RBC Urine WBC Ur Squamous Epith Cells Urine Bacteria Urine Mucus 08/06/21 08/06/21 08/06/21 08:15 08:15 09:35 WBC RBC Hgb Hct MCV MCH MCHC RDW Std Deviation RDW Coeff of James Plt Count MPV Immature Gran % (Auto) Neut % (Auto) Lymph % (Auto) [place] % (Auto) Eos % (Auto) Baso % (Auto) Absolute Neuts (auto) Absolute Lymphs (auto) Nucleated RBC % PT INR APTT D-Dimer Quant (PE/DVT) Sodium Potassium Chloride Carbon Dioxide Anion Gap BUN Creatinine Estim Creat Clear Calc Est GFR (MDRD) Af Amer Est GFR (MDRD) Non-Af BUN/Creatinine Ratio Glucose Lactic Acid 2.4 H* Calcium Total Bilirubin AST ALT Alkaline Phosphatase B-Natriuretic Peptide 110.7 H Total Protein Albumin Globulin Albumin/Globulin Ratio Urine Color Yellow Urine Clarity Clear Urine pH 5.0 Ur Specific [place] 1.015 Urine Protein 15 H Urine Glucose (UA) Normal Urine Ketones Negative Urine Occult Blood Negative Urine Nitrite Negative Urine Bilirubin Negative Urine Urobilinogen Normal Ur Leukocyte Esterase Negative Urine RBC 0 SEEN Urine WBC 0 SEEN Ur Squamous Epith Cells 0 SEEN Urine Bacteria 0 SEEN Urine Mucus 0 SEEN Radiography Chest X-Ray - ED: 1 View and Read by ED Physician Diagnostic Testing: Radiology Impression Chest X-Ray 08/06/21 09:00 IMPRESSION: Bilateral pulmonary infiltrates worse at the lung bases. Stable elevation of the right hemidiaphragm. Electronically Signed: Den Carver MD at 9:22 EDT , Service support , Chest x-ray portable shows bilateral infiltrates versus possible Covid. Initial rapid Covid was negative. Rhythm Strip Rhythm Strip: Sinus Tach Rate: 114 Ectopy: None EKG Initial EKG: Attestation: I personally reviewed and interpreted this EKG as follows: Interpretation: Sinus Rhythm, No Acute Injury Pattern and Sinus Tachycardia Comments: Sinus tachycardia rate of 114. A lot of artifact from the patient's shaking. No acute signs of ME or ischemia. Critical Care Time Critical Care Time: Yes Critical care time (excluding procedures): 30-74 minutes, Discussing w/Patient &/or Family/Corporation Lawyer, Discussing w/Consultants, Arranging Admission or Transfer, Performing Direct Patient Care at Bedside and - (32 min) Discharge Plan Dx/Rx/DC Orders Clinical Impression: Bilateral pneumonia, Hypoxia, Acute on chronic renal insufficiency, Respiratory failure, Sepsis Disposition Disposition: Acute Care [facility]
[2021-08-06 08:40] LABS: Absolute Lymphocyte Count 2.36 X10^3/uL (0.83-4.51); Absolute Neutrophil Count 12.7 X10^3/uL (2.0-7.7); Basophil# 0.04 X10^3/uL; Basophil% 0.3 % (0-1); Eosinophil# 0.13 X10^3/uL; Eosinophils% 0.8 % (0-5); Hematocrit 38.9 % (40-54); Hemoglobin 12.1 g/dL (13.0-16.5); Lymphocyte # 2.36 X10^3/ul (0.83-4.51); Lymphocyte % 14.9 % (19-41); Mean Corp Hgb Conc 31.1 g/dL (32-36); Mean Corpuscular Hgb 28.9 pg (27.0-32.0); Mean Corpuscular Volume 93.1 fL (80-94); Mean Platelet Vol. 10.8 fl (6.2-12.0); Monocyte# 0.48 X10^3/uL; NRBC Flagged by Analyzer 0 % (0-5); Neutrophil # 12.71 X10^3/uL (2.7-7.7); Neutrophil % 80.6 % (47-70); Platelet Count 231 K/mm3 (150-450); RBC Distribution Width CV 12.7 % (11.6-14.6); RBC Distribution Width SD 43.4 fl (35.1-43.9); Red Blood Count 4.18 M/mm3 (4.6-6.2); White Blood Count 15.8 K/mm3 (4.4-11.0)
[2021-08-06] MEDS: Ondansetron 4 MG/2 ML Vial IV (08:43)
[2021-08-06] MEDS: MethylPREDNISolone 125 MG/2 ML Vial IV (08:43)
[2021-08-06 08:44] LABS: International Normalized Ratio 1.1; Prothrombin Time (Protime)PT. 13.8 SECONDS (11.7-14.9)
[2021-08-06 08:45] LABS: Partial Thromboplast Time 25.8 Seconds (24.1-36.2)
[2021-08-06 08:52] LABS: ALB/GLOB Ratio 0.8 RATIO (0.9-2.4); AST(SGOT) 19 U/L (15-37); Alanine Aminotransfer ALT/SGPT 22 U/L (16-61); Albumin, Serum 3.5 g/dL (3.2-5.0); Alkaline Phosphatase 124 U/L (45-117); Anion Gap 1 (5-15); BUN 45 mg/dL (7-18); BUN/Creat Ratio 20.5 RATIO (10-20); Chloride 106 mmol/L (98-107); Creatinine, Serum 2.19 mg/dL (0.70-1.30); EST Glomerular Filtration Rate 33 mL/min (>60); Est Glom Filt Rate - Afr Amer 39 mL/min (>60); Estimated Creatinine Clearance 33.84 ml/min; Globulin 4.5 g/dL (2.2-4.2); Glucose 151 mg/dL (74-106); Potassium 4.4 mmol/L (3.5-5.1); Sodium Level 139 mmol/L (136-145)
[2021-08-06 08:55] LABS: D-Dimer Quantitative (DVT/PE) 0.65 FEU/ug/m (0.27-0.49)
[2021-08-06] MEDS: Ipratropium/Albuterol Sulfate 3 ML AMPUL.NEB INHALATION ×3 (08:55→18:53)
--- NOTE | 2021-08-06 09:00 | RAD_ITS ---
STUDY: X-RAY CHEST REASON FOR EXAM: Male, 61 years old. Dyspnea TECHNIQUE: Single AP portable view of the chest. COMPARISON: Comparison is made with prior study 07/25/2021. FINDINGS: EKG lateral views are seen. Stable elevation of the right hemidiaphragm. Since prior study, there is evidence of bilateral pulmonary infiltrates in both lungs worse in the lower lobes. Normal size heart. Normal mediastinum and pat. Normal visualized pulmonary arteries. Normal visualized aortic arch and descending thoracic aorta. There are diffuse degenerative changes of the visualized thoracic spine. Normal visualized ribs, clavicles, and shoulders. There is no demonstrated abnormality of the visualized soft tissue structures of the upper abdomen. RAD/Chest 1 View (Portable) IMPRESSION: Bilateral pulmonary infiltrates worse at the lung bases. Stable elevation of the right hemidiaphragm. Electronically Signed: Den Carver MD at 9:22 EDT , Service support ,
[2021-08-06 09:07] LABS: Lactic Acid 2.4 mmol/L (0.4-1.9)
[2021-08-06 09:15] LABS: BNP,B-Type NATRIURETIC PEPTIDE 110.7 pg/mL (0-100)
[2021-08-06 09:40] LABS: Bacteria 0 SEEN /hpf (None Seen); Mucous, Urine 0 SEEN /hpf (<or=2+); Red Blood Cells-Urine 0 SEEN /hpf (0-5); Squamous Epithelial Cells - UA 0 SEEN /hpf (0-5); White Blood Cells 0 SEEN /hpf (0-5)
[2021-08-06 09:43] LABS: Color, Urine Yellow (Yellow); Glucose, Dipstick Normal (Normal); Ketone-Dipstick Negative (Negative); Leukocyte Esterase-Dipstick Negative /ul (Negative); Nitrite-Dipstick Negative (Negative); Occult Blood-Urine Negative /ul (Negative); Protein-Dipstick 15 mg/dl (Negative); Specific Gravity, Urine 1.015 (1.002-1.030); Urine Bilirubin Dipstick Negative (Negative); Urine Clarity Clear (Clear); Urine Urobilinogen Normal (Normal)
[2021-08-06] MEDS: 0.9% Normal Saline 1,000 ML 999 ML IV (10:29)
[2021-08-06] MEDS: Ceftriaxone 1 GM/50 ML BAG IV (10:29)
--- NOTE | 2021-08-06 10:31 | HP.PCM.HOS_ITS ---
HPI - General General Date of Admission: 08/06/21 HPI Narrative REA HANNA, is a 61 M who presented to the emergency department [facility] on 08/06/2021 complaining of shortness of breath. The patient reports that he started having shortness of breath yesterday that has progressively gotten worse. The patient does have a tendency to get short of breath and have increased anxiety which contributes to his worsening shortness of breath historically speaking. On admission he complained of chills without documented fevers cough that has been intermittently productive of sputum but none produced in the emergency department and shortness of breath as described above. He has had no change in smell or taste, no nausea or vomiting, no diarrhea, he did report intermittent constipation, he denies tingling numbness or weakness. He has had multiple admissions and pulmonary visits for respiratory failure and has known bronchiectasis. He did have a swallow eval done here at his last admission that allowed for a regular diet with thin liquids but did show evidence of silent aspiration. This study was done on 07/01/2021 and the speech-language pathologist recommended follow-up speech therapy and a GI consult secondary to esophageal retention that was noted on his MBS. His most recent PFTs showed a mild restrictive ventilatory impairment likely related to his body habitus but no obstructive disease. In the emergency department he required BiPAP administration initially as his oxygen saturations were 86% on room air and he was tachypneic with hypertension and tachycardia. He has been afebrile. His white count was elevated at 15.8, he he had a mild anemia which appears to be chronic and improved but likely improved from dehydration, and his platelet count was normal. Left shift was noted as well. His coags were negative. His BMP showed normal electrolytes with an elevated BUN and serum creatinine. At discharge on 07/25/2021 his serum creatinine was 1.54 and it is currently 2.19. His lactic acid was within normal limits. His LFTs were unremarkable. His BNP was slightly elevated at 110 and his UA was unimpressive. His EKG showed sinus tachycardia with no ST-T wave changes and was stable. His chest x-ray showed patchy bilateral infiltrates worse at the lung bases and a stable elevation of the right hemidiaphragm. In the emergency department he was treated with Rocephin and azithromycin. I will admit him to PCU as stepdown given the fact that he is on BiPAP and convert his antibiotics to HCAP coverage since he has had several recent hospitalizations. [facility] Medical History Amputation of one or more toes Anxiety Bronchiectasis with (acute) exacerbation CAD (coronary artery disease) Chest pain Congestive heart failure (CHF) COPD (chronic obstructive pulmonary disease) CPAP (continuous positive airway pressure) dependence Depression Diabetes GERD (gastroesophageal reflux disease) Hypertension Kidney stones Kidney stones Migraines Myocardial infarct Non-smoker On home oxygen therapy PAD (peripheral artery disease) Pneumonia Pulmonary nodule, left Severe sepsis Sleep apnea Vision loss of left eye Home Medications acetaminophen 1,000 mg PO BID PRN PRN 02/11/21 [History Last Taken 07/09/21] alprazolam 0.5 mg PO BID 02/11/21 [History Last Taken 08/05/21 21:00] atorvastatin 80 mg PO QHS 02/11/21 [History Last Taken 08/05/21 17:00] buspirone 7.5 mg PO TID 02/11/21 [History Last Taken 08/05/21 21:00] carvedilol 25 mg PO BID 02/11/21 [History Last Taken 08/05/21 21:00] clopidogrel 75 mg PO DAILY 02/11/21 [History Last Taken 08/05/21 09:00] finasteride 5 mg PO DAILY 02/11/21 [History Last Taken 08/05/21 09:00] fluoxetine 40 mg PO DAILY 02/11/21 [History Last Taken 08/05/21 09:00] insulin detemir U-100 28 unit SQ QHS 02/11/21 [History Last Taken 08/05/21 21:00] insulin lispro See Protocol SQ TIDCM 02/11/21 [History Last Taken 08/05/21 17:00] isosorbide mononitrate 30 mg PO DAILY 02/11/21 [History Last Taken 08/05/21 09:00] losartan 100 mg PO DAILY 02/11/21 [History Last Taken 08/05/21 09:00] nitroglycerin 0.4 mg SL Q5M PRN 02/11/21 [History Last Taken 02/08/21] pantoprazole 20 mg PO DAILY 02/11/21 [History Last Taken 08/05/21 09:00] pregabalin [Lyrica] 75 mg PO BID 05/13/21 [History Last Taken 08/05/21 21:00] fluoxetine 20 mg PO DAILY #0 cap 07/02/21 [Rx Last Taken 08/05/21 09:00] trazodone 100 mg PO QHS #0 tab 07/02/21 [Rx Last Taken 08/05/21 21:00] exenatide microspheres 2 mg SUBCUT QWEEK 07/10/21 [History Last Taken 07/31/21] furosemide 40 mg PO DAILY 07/10/21 [History Last Taken 08/05/21 09:00] albuterol sulfate 90 mcg/actuation aerosol inhaler 2 puff INHALATION Q4H PRN #8.5 g 07/24/21 [Rx Last Taken Unknown] clotrimazole 1 applic TOPICAL BID PRN 08/06/21 [History Last Taken Unknown] nystatin [Nyamyc] 1 applic TOPICAL BID PRN 08/06/21 [History Last Taken Unknown] Allergy/AdvReac Type Severity Reaction Status Date / Time allopurinol AdvReac Vomiting Verified 08/06/21 08:13 Influenza Virus Vaccines AdvReac Vomiting Verified 08/06/21 08:13 pneumococcal vaccine AdvReac Vomiting Verified 08/06/21 08:13 Family History Mother Diabetes Heart disease CHF Father Heart disease [place]/CAD Myocardial infarction Surgical History H/O lithotripsy History of ankle surgery History of coronary artery stent placement Hx of toe surgery S/P peripheral artery angioplasty with stent placement S/P thyroid surgery Social History household members: spouse housing: apartment Smoking Status: Never smoker alcohol intake: never substance use type: does not use ROS Constitutional Constitutional: Reports chills, fatigue and weakness; Denies anorexia, change in weight, fever(s), malaise, night sweats or other Eyes Eyes: Denies blurry vision, change in eye color, change in vision, discharge from eye(s), double vision, erythema, eye pain, loss of vision or other ENT HEENT: Reports nasal discharge; Denies abnormal hearing, dysphagia, ear pain, epistaxis, headache(s), hearing loss, nasal congestion, post nasal drip, sinus pressure, sore throat or other Cardiovascular Cardiovascular: Reports dyspnea on exertion; Denies chest pain, claudication, edema, lightheadedness, orthopnea, palpitations, paroxysmal nocturnal dyspnea, rapid heart rate, syncope or other Respiratory/Chest Respiratory/Chest: Reports cough, dyspnea, productive cough, shortness of breath at rest and shortness of breath with exertion; Denies excessive phlegm production, hemoptysis, wheezing or other Gastrointestinal Gastrointestinal: Reports constipation; Denies abdominal pain, coffee ground emesis, diarrhea, dyspepsia, hematemesis, hematochezia, loose stools, melena, nausea, vomiting or other Genitourinary Genitourinary: Denies burning urination, difficulty urinating, dysuria, hematuria, nocturia, urinary frequency, urinary hesitancy, urinary incontinence, urinary urgency or other Musculoskeletal Musculoskeletal: Denies arthralgias, back pain, joint pain, joint stiffness, joint swelling, myalgias, neck pain or other Neurologic Neurologic: Denies abnormal gait, abnormal speech, confusion, disequilibrium, dizziness, focal weakness, headache(s), numbness, paresthesias, seizure-like activity, seizures, syncope, tingling, tremor(s) or other Psychiatric Psychiatric: Reports anxiety; Denies depression, homicidal ideation, suicidal ideation or other Endocrine Endocrinology: Denies change in body appearance, cold intolerance, excessive sweating, heat intolerance, polydipsia, polyuria or other Hematologic/Lymphatic Hematologic/Lymphatic: Denies anemia, easy bleeding, easy bruising, lymphadenopathy or other Allergic/Immunologic Allergic/Immunologic: Denies rhinitis, hives, eczemia, asthma or other Vital Signs Vital Signs Vital Signs: 08/06/21 08:09 08/06/21 08:15 08/06/21 08:21 Temperature 98.4 F Temperature Source Temporal Pulse Rate 113 H 114 H Respiratory Rate 30 H 25 H 30 H Respiratory Effort Short of Breath Labored Respiratory Depth Deep Respiratory Pattern Tachypnea Tachypnea Blood Pressure 163/131 H Blood Pressure Mean 141 Pulse Ox 86 92 95 Oxygen Delivery Method CPAP Bi-pap CPAP Oxygen Flow Rate (L/min) Fraction of Inspired Oxygen (FIO2) 65 08/06/21 08:29 08/06/21 08:43 08/06/21 08:55 Temperature 98.4 F Temperature Source Temporal Pulse Rate 114 H 111 H 111 H Respiratory Rate 40 H 28 H 26 H Respiratory Effort Respiratory Depth Respiratory Pattern Tachypnea Tachypnea Blood Pressure 180/141 H Blood Pressure Mean 154 Pulse Ox 92 95 Oxygen Delivery Method CPAP Oxygen Flow Rate (L/min) Fraction of Inspired Oxygen (FIO2) 50 08/06/21 09:08 08/06/21 09:27 08/06/21 09:38 Temperature 98.2 F 98.2 F Temperature Source Temporal Temporal Pulse Rate 111 H 107 H Respiratory Rate 26 H 20 H Respiratory Effort Respiratory Depth Respiratory Pattern Tachypnea Blood Pressure 107/68 Blood Pressure Mean 81 Pulse Ox 95 Oxygen Delivery Method Bi-pap Oxygen Flow Rate (L/min) Fraction of Inspired Oxygen (FIO2) 50 08/06/21 10:02 08/06/21 10:30 Temperature 99.7 F H Temperature Source Oral Pulse Rate 110 H Respiratory Rate 26 H Respiratory Effort Respiratory Depth Respiratory Pattern Blood Pressure 123/66 H Blood Pressure Mean 85 Pulse Ox 93 94 Oxygen Delivery Method Nasal Cannula Nasal Cannula Oxygen Flow Rate (L/min) 5 5 Fraction of Inspired Oxygen (FIO2) Weight Weight: 130 kg Body Mass Index (BMI) 43.5 Physical Exam Const alert, oriented x3 and no apparent distress Constitutional Narrative: Obese white male sitting up in bed on BiPAP, nontoxic, appears comfortable at this time, nursing at bedside General Appearance: cooperative HEENT normocephalic, head/scalp atraumatic and hearing grossly normal bilaterally Eyes PERRL, EOMs intact bilaterally and conjunctivae normal Eyes Narrative: No scleral or conjunctival injection Neck no lymphadenopathy, supple, no JVD and no carotid bruits Neck Narrative: Trachea midline, no signs of thyroid enlargement Resp normal respiratory effort, no retractions and no use of accessory muscles Resp Narrative: Scattered crackles with few scattered rhonchi, breathing is currently comfortable on noninvasive ventilation Auscultation: crackles and rhonchi; Negative for rales or wheezes Cardio regular rate, regular rhythm, S1 normal heart sound, S2 normal heart sound, no murmurs, no rub, no gallops, no clicks and no JVD GI normal to inspection, nondistended, normoactive bowel sounds, soft to palpation, non-tender and non-distended Extremity no clubbing, cyanosis or edema Peripheral Pulses: Yes pulses 2+ throughout Skin no rashes or lesions noted, no wounds, skin turgor normal, no jaundice, no petechiae and no mottling Skin Narrative: Skin is pale Neuro oriented x3, CN's II-XII intact bilaterally, moves all extremities and no focal motor deficits Sensorium / Orientation: awake and alert Speech: speech normal Psych Mood & Affect: anxious Results Lab / Micro Data Attestation: I reviewed the patient's lab results. Result Diagrams: 08/06/21 08:15 08/06/21 08:15 Labs: Laboratory Results - last 24 hr 08/06/21 08:15: WBC 15.8 H, RBC 4.18 L, Hgb 12.1 L, Hct 38.9 L, MCV 93.1, MCH 28.9, MCHC 31.1 L, RDW Std Deviation 43.4, RDW Coeff of James 12.7, Plt Count 231, MPV 10.8, Immature Gran % (Auto) 0.400, Neut % (Auto) 80.6 H, Lymph % (Auto) 14.9 L, C[place] % (Auto) 3.0, Eos % (Auto) 0.8, Baso % (Auto) 0.3, Absolute Neuts (auto) 12.7 H, Absolute Lymphs (auto) 2.36, Nucleated RBC % 0 08/06/21 08:15: PT 13.8, INR 1.1, APTT 25.8, D-Dimer Quant (PE/DVT) 0.65 H* 08/06/21 08:15: Sodium 139, Potassium 4.4, Chloride 106, Carbon Dioxide 32.0, Anion Gap 1 L, BUN 45 H, Creatinine 2.19 H, Estim Creat Clear Calc 33.84, Est GFR (MDRD) Af Amer 39 L, Est GFR (MDRD) Non-Af 33 L, BUN/Creatinine Ratio 20.5 H , Glucose 151 H, Calcium 9.0, Total Bilirubin 0.40, AST 19, ALT 22, Alkaline Phosphatase 124 H, Total Protein 8.0, Albumin 3.5, Globulin 4.5 H, Albumin/Globulin Ratio 0.8 L 08/06/21 08:15: Lactic Acid 2.4 H* 08/06/21 08:15: B-Natriuretic Peptide 110.7 H 08/06/21 09:35: Urine Color Yellow, Urine Clarity Clear, Urine pH 5.0, Ur Specific [place] 1.015, Urine Protein 15 H, Urine Glucose (UA) Normal, Urine Ketones Negative, Urine Occult Blood Negative, Urine Nitrite Negative, Urine Bilirubin Negative, Urine Urobilinogen Normal, Ur Leukocyte Esterase Negative, Urine RBC 0 SEEN, Urine WBC 0 SEEN, Ur Squamous Epith Cells 0 SEEN, Urine Bacte andrew 0 SEEN, Urine Mucus 0 SEEN Micro: Microbiology 08/06/21 08:50 Interface Orders SARS-CoV-2 Antigen (Rapid) - Final Rhythm Strip Rhythm Strip: Sinus Tach Rate: 114 Ectopy: None Radiology Impression Chest X-Ray 08/06/21 09:00 IMPRESSION: Bilateral pulmonary infiltrates worse at the lung bases. Stable elevation of the right hemidiaphragm. Electronically Signed: Den Carver MD at 9:22 EDT , Service support , Assessment & Plan Assessment/Plan (1) Acute respiratory failure with hypoxia: (2) Acute on chronic renal insufficiency: (3) Sepsis: (4) Bilateral pneumonia: PLAN: Sepsis secondary to suspected pulmonary source -Cultures are pending -Patient was given Rocephin and a Zithromax in the emergency department but with his multiple hospitalization will convert to vancomycin and Zosyn for the time being -Check MRSA PCR -Check respiratory viral PCR -Check strep pneumo and Legionella antigens -Patient has known bronchiectasis--> would recommend continued pseudomonal coverage -Chest x-ray shows worsening bilateral infiltrates -Cycle lactic acid -Patient is currently normotensive no need for fluid boluses at 30 cc/kg ideal body weight but will monitor and initiate if pressures drop -Pulmonary consulted Acute hypoxic respiratory failure secondary to pneumonia/bronchiectasis -Continuous BiPAP for now--> wean O2 as able -N.p.o. except for p.o. medications -Has bronchiectasis on CTA from previously and patient reports a significant history of recurrent pneumonias -Echocardiogram was performed in April and showed a normal EF -Scheduled DuoNebs -As needed nebulizers -IS -Acapella -Mucinex -No systemic steroids at this time -Cultures pending -Check immunoglobulins with recurrent respiratory infections -An MBS was performed at his last hospitalization and he passed for thin liquid regular diet -Pulmonary consulted Silent aspiration -Patient was cleared for a regular thin liquid diet with swallowing strategies -MBS was performed on 07/01/2021 that showed silent aspiration of thin liquids -Reconsult speech therapy -Consider GI referral at discharge as per speech therapy notes there is some con cern that chronic GERD may be contributing to his chronic hospitalizations with his respiratory failure CELESTE on CKD stage IIIa -Baseline serum creatinine is about 1.2-1.4 -Current serum creatinine is 2.19 -Avoid nephrotoxins as able -Hold home diuretics -IV fluids with normal saline at 70 cc/h -Repeat BMP in a.m. DM-2 -Patient takes Lantus 28 units at home -We will give 50% of home Lantus dose at 14 units given n.p.o. status -SSI -Accu-Cheks every 6 -Cardiac carb controlled diet when patient is able to take p.o. Chronic anemia -Last hemoglobin was 9.7 on 07/25/2021 -Anemia has improved with a count of 12.1 today but I do anticipate the patient is somewhat hemoconcentrated and anticipated drop in hemoglobin with IV fluids CAD/HTN/HPL -Hold losartan with renal failure -Continue other home blood pressure medications and monitor pressures closely -Continue statin -Continue Plavix Anxiety/depression -Continue Xanax, BuSpar, Prozac, and trazodone -Patient does have severe anxiety Obesity -BMI is 38.1 -Complicates treatment, prognosis, and outcomes -Recommend weight loss DVT prophylaxis -Start heparin 5000 units 3 times daily given renal failure -SCDs CODE STATUS -Full code Charges/Coding Visit Charges Inpatient E&M: 93635 Init Hosp L3
[2021-08-06 12:39] LABS: Reflex Lactate? Y
--- NOTE | 2021-08-06 13:15 | EKG12_ITS ---
Test Reason : ADMIN EKG Blood Pressure : / mmHG Vent. Rate : 106 BPM Atrial Rate : 106 BPM P-R Int : 272 ms QRS Dur : 094 ms QT Int : 346 ms P-R-T Axes : 000 006 024 degrees QTc Int : 459 ms Sinus tachycardia with 1st degree A-V block Otherwise normal ECG Confirmed by ROLAND JOHNS, FAUSTINA ([id number]), marketing editor SHARAN DOE ([id number]) on 08/11/2021 1:12:30 PM Referred By: BEATRICE Confirmed By:FAUSTINA WATKINS MD
--- NOTE | 2021-08-06 13:21 | PCS.PANDOC ---
PANDEMIC DOCUMENTATION INITIATED: Date: 07/14/2021 Time: 190
[2021-08-06 13:32] LABS: Lactic Acid 1.4 mmol/L (0.4-1.9)
--- NOTE | 2021-08-06 13:35 | PCM.RX.CS ---
Consult Pharmacy has been consulted to manage selected antiobiotic: Vancomycin Type of Consult: New start Suspected Infection: Sepsis, Pneumonia Labs: Sodium 139 mmol/L (136-145) 08/06/21 08:15 Potassium 4.4 mmol/L (3.5-5.1) 08/06/21 08:15 Chloride 106 mmol/L (98-107) 08/06/21 08:15 Carbon Dioxide 32.0 mmol/L (21.0-32.0) 08/06/21 08:15 Anion Gap 1 (5-15) L 08/06/21 08:15 BUN 45 mg/dL (7-18) H 08/06/21 08:15 Creatinine 2.19 mg/dL (0.70-1.30) H 08/06/21 08:15 Est GFR (MDRD) Af Amer 39 mL/min (>60) L 08/06/21 08:15 Est GFR (MDRD) Non-Af 33 mL/min (>60) L 08/06/21 08:15 BUN/Creatinine Ratio 20.5 RATIO (10-20) H 08/06/21 08:15 Glucose 151 mg/dL (74-106) H 08/06/21 08:15 Microbiology: Microbiology 08/06/21 08:50 Interface Orders SARS-CoV-2 Antigen (Rapid) - Final Pharmacy Plan for Drug Dosing: NEW START IV VANCOMYCIN Consulting Physician: BEATRICE Indication: SEPSIS, PNEUMONIA Goal Trough: 15-20 MG SrCr: 2.19 MG/DL CrCl: 45.7 ML/MIN (USING ADJ BW OF 92.3 KG) Comments: BLOOD AND URINE CX PENDING. PHYSICIAN ORDERED STANDARD DOSE, HIGH TROUGH. NO DOSES GIVEN IN ER. Vancomycin Dose: WILL START 1000MG Q12H @ 1400 PER POLICY AND GET A TROUGH PRIOR TO THE 4TH DOSE. Pending Level: 08/08/21 @ 0130 Pharmacy Service will continue to monitor and adjust dosing as required.
[2021-08-06] MEDS: Vancomycin IV 1,000 MG/200 ML BAG 200 MG IV (14:11)
[2021-08-06 14:20] LABS: Bedside Glucose 242 mg/dL (70-110)
[2021-08-06] MEDS: Heparin Injection (Vial) 5,000 UNIT/ML VIAL 5000 UNIT SC ×2 (14:33→21:06)
--- NOTE | 2021-08-06 14:44 | CPS ---
patient currently refusing bipap
[2021-08-06 15:34] LABS: Troponin-I HS 22 pg/mL (3.0-78.0)
[2021-08-06] MEDS: busPIRone 15 MG TABLET 7.5 MG PO ×2 (15:54→21:06)
[2021-08-06] MEDS: 0.9% Normal Saline 1,000 ML 70 ML IV (15:57)
[2021-08-06 16:23] LABS: M R Staph aureus DNA By PCR Negative (Negative); Probe Check PASS; Specimen Processing Control PASS
--- NOTE | 2021-08-06 16:55 | CHAPLAIN ---
Type of Pastoral Visit _x__ Initial Visit ___ Follow-up Visit ___ On-call Visit ___ General Patient Visit ___ Spiritual Assessment ___ Family Conference ___ Bereavement ___ Rapid Response ___ Code Blue ___ Other (describe below) Pastoral Care Referral From _x__ Patient ___ Family ___ Nurse ___ Physician ___ Digital Circuit Designer ___ Display Screen Fabricator ___ Other (describe below) Sacrament/Intervention _x__ Active listening ___ Anointing ___ Buddhist ___ Bereavement ___ Communion ___ Sarai exploration ___ ___ Life review _x__ Prayer ___ Reconciliation ___ Sacrament of Sick _x__ Supportive presence ___ Wedding ___ Other (describe below) Pastoral Comments
[2021-08-06] MEDS: Insulin Lispro 100 UNIT/ML INSULN.PEN SC ×2 (17:08→21:09)
[2021-08-06 17:21] LABS: Bedside Glucose 240 mg/dL (70-110)
[2021-08-06 17:26] LABS: Troponin-I HS 21 pg/mL (3.0-78.0)
[2021-08-06] MEDS: hydrALAZINE 20 MG/ML Vial 5 MG IV (18:45)
[2021-08-06] MEDS: 0.9% Saline Lock 10 ML Syringe IV ×2 (18:46→21:24)
[2021-08-06] MEDS: traZODone 100 MG Tablet PO (21:06)
[2021-08-06] MEDS: Carvedilol 25 MG Tablet PO (21:06)
[2021-08-06] MEDS: Atorvastatin Calcium 80 MG Tablet PO (21:07)
[2021-08-06] MEDS: Nystatin Powder 15gm Bottle 1 APPLIC TOPICAL (21:08)
[2021-08-06] MEDS: Pregabalin 75 MG Capsule PO (21:17)
[2021-08-06] MEDS: ALPRAZolam 0.5 MG Tablet PO (21:17)
[2021-08-06 22:07] LABS: Troponin-I HS 22 pg/mL (3.0-78.0)
[2021-08-06 23:01] LABS: Bedside Glucose 388 mg/dL (70-110)
[2021-08-07] VITALS (13 sets, daily range): BP systolic 126–180; BP diastolic 69–93; PULSE 73–87; RESP 15–20; TEMP 36.6–36.7; O2SAT 95–100
--- NOTE | 2021-08-07 00:48 | CPS ---
Pt. has been diagnosed with sleep apnea, but admittedly, isn't compliant with wearing it. Pt. currently on 2L NC, with oxygen saturations sitting around 94-96%.
[2021-08-07] MEDS: Vancomycin IV 1,000 MG/200 ML BAG 200 MG IV (02:12)
[2021-08-07] MEDS: busPIRone 15 MG TABLET 7.5 MG PO ×3 (06:19→21:51)
[2021-08-07] MEDS: Heparin Injection (Vial) 5,000 UNIT/ML VIAL 5000 UNIT SC ×3 (06:19→21:53)
[2021-08-07] MEDS: Insulin Lispro 100 UNIT/ML INSULN.PEN SC ×4 (06:22→21:55)
[2021-08-07 06:24] LABS: Hematocrit 33.6 % (40-54); Hemoglobin 10.6 g/dL (13.0-16.5); Mean Corp Hgb Conc 31.5 g/dL (32-36); Mean Corpuscular Hgb 29.1 pg (27.0-32.0); Mean Corpuscular Volume 92.3 fL (80-94); Mean Platelet Vol. 11.1 fl (6.2-12.0); Platelet Count 185 K/mm3 (150-450); RBC Distribution Width CV 12.6 % (11.6-14.6); RBC Distribution Width SD 42.8 fl (35.1-43.9); Red Blood Count 3.64 M/mm3 (4.6-6.2); White Blood Count 21.2 K/mm3 (4.4-11.0)
[2021-08-07 06:30] LABS: Bedside Glucose 309 mg/dL (70-110)
[2021-08-07] MEDS: 0.9% Normal Saline 1,000 ML 70 ML IV (06:47)
[2021-08-07 06:54] LABS: ALB/GLOB Ratio 0.7 RATIO (0.9-2.4); AST(SGOT) 24 U/L (15-37); Alanine Aminotransfer ALT/SGPT 22 U/L (16-61); Albumin, Serum 2.8 g/dL (3.2-5.0); Alkaline Phosphatase 89 U/L (45-117); Anion Gap 3 (5-15); BUN 42 mg/dL (7-18); Calcium,Total 8.8 mg/dL (8.5-10.1); Chloride 109 mmol/L (98-107); Creatinine, Serum 1.68 mg/dL (0.70-1.30); EST Glomerular Filtration Rate 44 mL/min (>60); Est Glom Filt Rate - Afr Amer 53 mL/min (>60); Estimated Creatinine Clearance 47.07 ml/min; Globulin 4.3 g/dL (2.2-4.2); Glucose 342 mg/dL (74-106); Phosphorus 2.7 mg/dL (2.5-4.9); Potassium 4.4 mmol/L (3.5-5.1); Protein, Total 7.1 g/dL (6.4-8.2); Sodium Level 139 mmol/L (136-145)
[2021-08-07] MEDS: Ipratropium/Albuterol Sulfate 3 ML AMPUL.NEB INHALATION ×3 (07:05→18:34)
--- NOTE | 2021-08-07 09:13 | CASEMGMT ---
RN LIZETT Readmission Review Note: This is patient's 6th inpatient admission this year with 2 observation visits, and 6 ED visits for dx's including COPD exac, Sepsis d/t pneumonia, CELESTE, failure to thrive, and falls. Last admission: 07/10 - 07/11/21: Pt presented with hypotension and was treated for pneumonia but this was not felt to be present by brazer furnace and ID so pt was not discharged home with antibiotics. Pt was noted to have silent aspiration evidenced on a swallow eval performed 07/01/21. Pt declined recommended SNF placement. ST eval on index admission notes compensatory strategies needed during PO intake with recommendation for GI consult. A GI c/s was not ordered on index nor referral noted in DC instructions. PT discharged to home with resumption of home health services ([facility] SN, PT, OT and ST). Last ED visit: 07/25/21 Increased lower ext edema, sent in by Home Health nurse. Pt returned home. Pt with past medical hx including COPD, CHF, CAD, DM, GERD, HTN, anxiety/depression, and PAD. Pt presented this admission with c/o increased SOB. Pt readmitted with sepsis d/t suspected pulmonary source. Pt lives with significant other who reported last admit to be having increased difficulty in providing care for patient at home. Pt was insistent on returning home. Pt remains active with [facility] for SN and PT services only at this time. Pt was receiving ST in the home but this has since been discontinued. Pt followed up with Dr. Lanier who ordered pt to have a 6 minute walk test to re-evaluate need for continued home O2 which pt wore at 3l/min. Results of this testing not available at this time. Testing on 07/02 noted need for O2 at 3l/min with exertion only with script sent to [facility]. Palliative referral also made on 07/02 with follow-up to occur after discharge. This RN CM contacted [facility] who states they did reach out to the patient on 07/09 but did not receive a return call. Noted pt was admitted the following day. This RN CM reached out to Sylvia with [facility] to further collaborate between home and acute services. Voicemail left requesting a return call. Will continue to monitor and assist with care coordination and discharge planning needs as identified. Cole Boyle RN CM
--- NOTE | 2021-08-07 10:41 | CON.PCM.CC_ITS ---
Assessment & Plan Assessment/Plan (1) Acute respiratory failure with hypoxia: PLAN: RECOMMENDATIONS: 1. Continue antimicrobials while awaiting finalized infectious work-up. Anticipate 7 days of therapy required. 2. Wean supplemental oxygen to maintain saturations at or above 90%. 3. Recommend speech therapy reevaluation. Consider repeat modified barium swallow. 4. The patient would likely benefit from outpatient GI follow-up. 5. Encourage incentive spirometer use and mobilize patient as tolerated. IMPRESSIONS: 1. Acute hypoxemic respiratory failure Most likely secondary to recurrent aspiration pneumonia. Agree with continuing empiric antimicrobials while awaiting infectious work-up. Oxygenation status has improved over the last 24 hours. Speech therapy evaluation is pending. The patient would likely benefit from repeat modified barium swallow and outpatient GI follow-up. Continue bronchopulmonary hygiene and wean supplemental oxygen to maintain saturations at or above 90%. Encourage incentive spirometer use and mobilize patient as tolerated. 2. History of silent aspiration The patient has been followed in the past by speech therapy. Reevaluation is currently pending. 3. History of restrictive lung disease/anemia/coronary artery disease/hypertension/hyperlipidemia/anxiety/depression Complicates care, management, recovery and prognosis. Continue home medications as indicated. This note was generated with [employer] dictation software. It may contain incorrect words, spelling, and punctuation that were not noted in checking the note before signing. HPI Consult Data Date of Consult: 08/07/21 HPI Narrative Reason for Consultation: Acute on chronic respiratory failure HPI Narrative: The patient is a 61-year-old male, with a history as outlined below, who presented to the emergency department on August 06 with shortness of breath and hypoxemia. The patient has a known history of restrictive lung disease and chronic hypoxemic respiratory failure with a baseline 3 L/min oxygen requirement. The patient has a history of frequent hospitalizations, most recently in June 2021, which was felt to be secondary to aspiration pneumonia. Modified barium swallow at the beginning of June revealed evidence of silent aspiration. The patient did report that in the days leading up to his hospitalization he did experience several episodes of emesis following ingestion of food. On presentation to the emergency department, the patient was noted to be afebrile and hemodynamically stable. Initial laboratory evaluation revealed an elevated white blood cell count to 16,000. Coagulation profile was within normal limits. D-dimer was only mildly elevated to 0.65. Chemistry profile was notable for a creatinine of 2.19 along with a lactate of 2.4. BNP was noted to be 110. Urine analysis was unremarkable. Chest x-ray revealed an elevated right hemidiaphragm with infiltrates in the lung bases. Coronavirus testing was negative. The patient was placed on gentle IV fluids along with empiric antimicrobials. He was subsequently admitted to the hospital for further management. [facility] Medical History Amputation of one or more toes Anxiety Bronchiectasis with (acute) exacerbation CAD (coronary artery disease) Chest pain Congestive heart failure (CHF) COPD (chronic obstructive pulmonary disease) CPAP (continuous positive airway pressure) dependence Depression Diabetes GERD (gastroesophageal reflux disease) Hypertension Kidney stones Kidney stones Migraines Myocardial infarct Non-smoker On home oxygen therapy PAD (peripheral artery disease) Pneumonia Pulmonary nodule, left Severe sepsis Sleep apnea Vision loss of left eye Home Medications acetaminophen 1,000 mg PO BID PRN PRN 02/11/21 [History Last Taken 07/09/21] alprazolam 0.5 mg PO BID 02/11/21 [History Last Taken 08/05/21 21:00] atorvastatin 80 mg PO QHS 02/11/21 [History Last Taken 08/05/21 17:00] buspirone 7.5 mg PO TID 02/11/21 [History Last Taken 08/05/21 21:00] carvedilol 25 mg PO BID 02/11/21 [History Last Taken 08/05/21 21:00] clopidogrel 75 mg PO DAILY 02/11/21 [History Last Taken 08/05/21 09:00] finasteride 5 mg PO DAILY 02/11/21 [History Last Taken 08/05/21 09:00] fluoxetine 40 mg PO DAILY 02/11/21 [History Last Taken 08/05/21 09:00] insulin detemir U-100 28 unit SQ QHS 02/11/21 [History Last Taken 08/05/21 21:00] insulin lispro See Protocol SQ TIDCM 02/11/21 [History Last Taken 08/05/21 17:00] isosorbide mononitrate 30 mg PO DAILY 02/11/21 [History Last Taken 08/05/21 09:00] losartan 100 mg PO DAILY 02/11/21 [History Last Taken 08/05/21 09:00] nitroglycerin 0.4 mg SL Q5M PRN 02/11/21 [History Last Taken 02/08/21] pantoprazole 20 mg PO DAILY 02/11/21 [History Last Taken 08/05/21 09:00] pregabalin [Lyrica] 75 mg PO BID 05/13/21 [History Last Taken 08/05/21 21:00] fluoxetine 20 mg PO DAILY #0 cap 07/02/21 [Rx Last Taken 08/05/21 09:00] trazodone 100 mg PO QHS #0 tab 07/02/21 [Rx Last Taken 08/05/21 21:00] exenatide microspheres 2 mg SUBCUT QWEEK 07/10/21 [History Last Taken 07/31/21] furosemide 40 mg PO DAILY 07/10/21 [History Last Taken 08/05/21 09:00] albuterol sulfate 90 mcg/actuation aerosol inhaler 2 puff INHALATION Q4H PRN #8.5 g 07/24/21 [Rx Last Taken Unknown] clotrimazole 1 applic TOPICAL BID PRN 08/06/21 [History Last Taken Unknown] nystatin [Nyamyc] 1 applic TOPICAL BID PRN 08/06/21 [History Last Taken Unknown] Allergy/AdvReac Type Severity Reaction Status Date / Time allopurinol AdvReac Vomiting Verified 08/06/21 08:13 Influenza Virus Vaccines AdvReac Vomiting Verified 08/06/21 08:13 pneumococcal vaccine AdvReac Vomiting Verified 08/06/21 08:13 Family History Mother Diabetes Heart disease CHF Father Heart disease [place]/CAD Myocardial infarction Surgical History H/O lithotripsy History of ankle surgery History of coronary artery stent placement Hx of toe surgery S/P peripheral artery angioplasty with stent placement S/P thyroid surgery Social History household members: spouse housing: apartment Smoking Status: Never smoker alcohol intake: never substance use type: does not use ROS Constitutional Constitutional: Reports fatigue and malaise Eyes Eyes: Denies blurry vision or change in vision ENT HEENT: Denies dysphagia Cardiovascular Cardiovascular: Reports dyspnea; Denies chest pain or dizziness Respiratory/Chest Respiratory/Chest: Reports cough and dyspnea Gastrointestinal Gastrointestinal: Reports vomiting; Denies abdominal pain, diarrhea or nausea Genitourinary Genitourinary: Denies difficulty urinating Musculoskeletal Musculoskeletal: Denies arthralgias or back pain Integumentary Integumentary: Denies lesions, rash or skin ulcer Neurologic Neurologic: Denies abnormal gait Psychiatric Psychiatric: Reports anxiety and depression Endocrine Endocrinology: Denies fatigue or polydipsia Hematologic/Lymphatic Hematologic/Lymphatic: Denies easy bleeding or easy bruising Physical Exam Const alert, oriented x3 and no apparent distress Constitutional Narrative: Sitting in bedside recliner. is present at the bedside. General Appearance: cooperative HEENT normocephalic and head/scalp atraumatic Eyes PERRL, EOMs intact bilaterally and conjunctivae normal Neck supple General: trachea midline Chest inspection of chest normal Resp normal respiratory effort Auscultation: wheezes; Negative for rales or rhonchi Cardio regular rate and regular rhythm GI normal to inspection, nondistended, normoactive bowel sounds Extremity no clubbing, cyanosis or edema Skin no rashes or lesions noted Neuro moves all extremities and no focal motor deficits Psych cooperative and affect normal Lab / Micro Data Result Diagrams: 08/07/21 05:45 08/07/21 05:45 Labs: Laboratory Results - last 24 hr 08/06/21 10:20: COVID-19 (RAFIQ) Not Detected 08/06/21 13:00: Lactic Acid 1.4 08/06/21 13:10: MRSA (PCR) Negative 08/06/21 14:07: POC Glucose 242 H 08/06/21 15:00: Troponin I High Sens 22 08/06/21 17:00: Troponin I High Sens 21 08/06/21 17:04: POC Glucose 240 H 08/06/21 21:05: POC Glucose 388 H 08/06/21 21:38: Troponin I High Sens 22 08/07/21 05:45: WBC 21.2 H, RBC 3.64 L, Hgb 10.6 L, Hct 33.6 L, MCV 92.3, MCH 29.1, MCHC 31.5 L, RDW Std Deviation 42.8, RDW Coeff of James 12.6, Plt Count 185, MPV 11.1 08/07/21 05:45: Sodium 139, Potassium 4.4, Chloride 109 H, Carbon Dioxide 27.0, Anion Gap 3 L, BUN 42 H, Creatinine 1.68 H, Estim Creat Clear Calc 47.07, Est GFR (MDRD) Af Amer 53 L, Est GFR (MDRD) Non-Af 44 L, BUN/Creatinine Ratio 25.0 H , Glucose 342 H, Calcium 8.8, Phosphorus 2.7, Magnesium 2.0, Total Bilirubin 0.50, AST 24, ALT 22, Alkaline Phosphatase 89, Total Protein 7.1, Albumin 2.8 L, Globulin 4.3 H, Albumin/Globulin Ratio 0.7 L 08/07/21 06:18: POC Glucose 309 H Micro: Microbiology 08/06/21 14:06 Mucosa - Nasopharyngeal Respiratory Panel (PCR) - Final 08/06/21 09:55 Urine, Clean Catch Streptococcus pneumoniae Antigen (M - Final 08/06/21 09:55 Urine, Clean Catch Legionella Antigen - Final 08/06/21 08:50 Interface Orders SARS-CoV-2 Antigen (Rapid) - Final Rhythm Strip Rhythm Strip: Sinus Tach Rate: 114 Ectopy: None Charges/Coding Visit Charges Inpatient E&M: 22546 Init Hosp L3
[2021-08-07] MEDS: Pantoprazole Sodium 20 MG Tablet PO (11:14)
[2021-08-07] MEDS: Clopidogrel Bisulfate 75 MG Tablet PO (11:14)
[2021-08-07] MEDS: Isosorbide Mononitrate 30 MG Tablet PO (11:14)
[2021-08-07] MEDS: Carvedilol 25 MG Tablet PO ×2 (11:14→21:53)
[2021-08-07] MEDS: FLUoxetine 20 MG Capsule 40 MG PO (11:14)
[2021-08-07] MEDS: Finasteride 5 MG Tablet PO (11:15)
[2021-08-07] MEDS: FLUoxetine 20 MG Capsule PO (11:16)
[2021-08-07] MEDS: Nystatin Powder 15gm Bottle 1 APPLIC TOPICAL ×2 (11:17→21:55)
[2021-08-07] MEDS: ALPRAZolam 0.5 MG Tablet PO ×2 (11:20→21:51)
[2021-08-07] MEDS: Pregabalin 75 MG Capsule PO ×2 (11:21→21:51)
--- NOTE | 2021-08-07 11:26 | PN.HOSP_ITS ---
Subjective Subjective Patient is sleeping soundly this morning. Per nursing no issues overnight. Since my evaluation yesterday in the emergency department we have been able to wean him from continuous BiPAP to 2 L nasal cannula with a sat of 97%. Objective Data Objective Data Vital Signs: Vital Signs Temp Pulse Resp BP Pulse Ox 97.8 F 79 15 137/69 H 97 08/07/21 11:07 08/07/21 11:07 08/07/21 11:07 08/07/21 11:07 08/07/21 11:07 Oxygen Flow Rate (L/min) 2 Oxygen Delivery Method Nasal Cannula Weight: 121.2 kg Body Mass Index (BMI) 38.3 Intake & Output: Intake and Output for Last 24 Hours 08/05/21 08/06/21 08/07/21 23:59 23:59 23:59 Intake Total 1420 / 1420 2102 / 2102 Output Total 1375 / 1375 975 / 975 Balance 45 / 45 1127 / 1127 Lab / Micro Data Result Diagrams: 08/07/21 05:45 08/07/21 05:45 Labs: Laboratory Results - last 24 hr 08/06/21 10:20: COVID-19 (RAFIQ) Not Detected 08/06/21 13:00: Lactic Acid 1.4 08/06/21 13:10: MRSA (PCR) Negative 08/06/21 14:07: POC Glucose 242 H 08/06/21 15:00: Troponin I High Sens 22 08/06/21 17:00: Troponin I High Sens 08/06/21 17:04: POC Glucose 240 H 08/06/21 21:05: POC Glucose 388 H 08/06/21 21:38: Troponin I High Sens 22 08/07/21 05:45: WBC 21.2 H, RBC 3.64 L, Hgb 10.6 L, Hct 33.6 L, MCV 92.3, MCH 29.1, MCHC 31.5 L, RDW Std Deviation 42.8, RDW Coeff of James 12.6, Plt Count 185, MPV 11.1 08/07/21 05:45: Sodium 139, Potassium 4.4, Chloride 109 H, Carbon Dioxide 27.0, Anion Gap 3 L, BUN 42 H, Creatinine 1.68 H, Estim Creat Clear Calc 47.07, Est GFR (MDRD) Af Amer 53 L, Est GFR (MDRD) Non-Af 44 L, BUN/Creatinine Ratio 25.0 H , Glucose 342 H, Calcium 8.8, Phosphorus 2.7, Magnesium 2.0, Total Bilirubin 0.50, AST 24, ALT 22, Alkaline Phosphatase 89, Total Protein 7.1, Albumin 2.8 L, Globulin 4.3 H, Albumin/Globulin Ratio 0.7 L 08/07/21 06:18: POC Glucose 309 H Micro: Microbiology 08/06/21 14:06 Mucosa - Nasopharyngeal Respiratory Panel (PCR) - Final 08/06/21 09:55 Urine, Clean Catch Streptococcus pneumoniae Antigen (M - Final 08/06/21 09:55 Urine, Clean Catch Legionella Antigen - Final 08/06/21 08:50 Interface Orders SARS-CoV-2 Antigen (Rapid) - Final Rhythm Strip Rhythm Strip: Sinus Tach Rate: 114 Ectopy: None Physical Exam Const Constitutional Narrative: Obese white male sleeping soundly in bed General Appearance: cooperative HEENT normocephalic, head/scalp atraumatic and hearing grossly normal bilaterally Head and Scalp: normocephalic Resp normal respiratory effort, no retractions and no use of accessory muscles Resp Narrative: Diminished at bases bilaterally with few scattered end expiratory wheezes Auscultation: crackles and rhonchi; Negative for rales or wheezes Cardio regular rate, regular rhythm, S1 normal heart sound, S2 normal heart sound, no murmurs, no rub, no gallops, no clicks and no JVD GI normal to inspection, nondistended, normoactive bowel sounds, soft to palpation and non-distended Extremity no clubbing, cyanosis or edema Peripheral Pulses: Yes pulses 2+ throughout Skin Skin Narrative: Skin is pale Neuro Neuro Narrative: Patient is sleeping soundly Assessment & Plan Assessment/Plan (1) Acute respiratory failure with hypoxia: (2) Acute on chronic renal insufficiency: (3) Sepsis: (4) Bilateral pneumonia: PLAN: Sepsis secondary to suspected pulmonary source -Sepsis resolved -Cultures are pending -Continue Zosyn -MRSA PCR is negative -Stop vancomycin -respiratory viral PCR negative -COVID-19 negative -strep pneumo and Legionella antigens are negative -Patient has known bronchiectasis--> would recommend continued pseudomonal cov erage -Chest x-ray shows worsening bilateral infiltrates -Blood and urine cultures are pending it does not appear that we have been able to collect a sputum culture as of yet Acute hypoxic respiratory failure secondary to pneumonia/bronchiectasis -Patient has been able to be weaned to 2 L nasal cannula -Has bronchiectasis on CTA from previously and patient reports a significant history of recurrent pneumonias -Echocardiogram was performed in April and showed a normal EF -Scheduled DuoNebs -As needed nebulizers -IS -Acapella -Mucinex -No systemic steroids at this time -Continue to hold Lasix but reevaluate tomorrow for the ability to reinitiate -Cultures pending -Check immunoglobulins with recurrent respiratory infections--> pending -An MBS was performed at his last hospitalization and he passed for thin liquid regular diet -Pulmonary following Silent aspiration -Patient was cleared for a regular thin liquid diet with swallowing strategies -MBS was performed on 07/01/2021 that showed silent aspiration of thin liquids -Speech therapy consult pending -Consider GI referral at discharge as per speech therapy notes there is some concern that chronic GERD may be contributing to his chronic hospitalizations with his respiratory failure CLEESTE on CKD stage IIIa -Baseline serum creatinine is about 1.2-1.4 -serum creatinine is 2.19 on admission and now down to 1.68 -Will discontinue IV fluids but continue to hold Lasix for now -Avoid nephrotoxins as able -Continue to hold home diuretics -Repeat BMP in a.m. DM-2 -Continue Lantus 28 units -SSI -Accu-Cheks every 6 -Cardiac carb controlled diet when patient is able to take p.o. Chronic anemia -Last hemoglobin was 9.7 on 07/25/2021 -Hemoglobin dropped but this was anticipate getting IV fluid dosing -Monitor for stability CAD/HTN/HPL -Restart losartan this was held secondary to renal dysfunction -Continue other home blood pressure medications and monitor pressures closely -Continue statin -Continue Plavix Anxiety/depression -Continue Xanax, BuSpar, Prozac, and trazodone -Patient does have severe anxiety Obesity -BMI is 38.1 -Complicates treatment, prognosis, and outcomes -Recommend weight loss DVT prophylaxis - heparin 5000 units 3 times daily given renal failure -SCDs CODE STATUS -Full code
[2021-08-07] MEDS: Losartan Potassium 100 MG Tablet PO (14:05)
[2021-08-07 14:16] LABS: Bedside Glucose 335 mg/dL (70-110)
[2021-08-07] MEDS: guaiFENesin 10 ML UDC (200MG/10ML) 20 ML PO (14:21)
[2021-08-07 18:56] LABS: Bedside Glucose 370 mg/dL (70-110)
[2021-08-07] MEDS: Atorvastatin Calcium 80 MG Tablet PO (21:53)
[2021-08-07] MEDS: traZODone 100 MG Tablet PO (21:53)
[2021-08-07 23:16] LABS: Bedside Glucose 301 mg/dL (70-110)
[2021-08-08] VITALS (11 sets, daily range): BP systolic 127–190; BP diastolic 80–105; PULSE 81–95; RESP 15–20; TEMP 36.8–36.9; O2SAT 88–98
[2021-08-08] MEDS: guaiFENesin 10 ML UDC (200MG/10ML) 20 ML PO (00:42)
[2021-08-08 02:17] LABS: Absolute Lymphocyte Count 1.14 X10^3/uL (0.83-4.51); Absolute Neutrophil Count 12.4 X10^3/uL (2.0-7.7); Basophil# 0.03 X10^3/uL; Basophil% 0.2 % (0-1); Eosinophil# 0.02 X10^3/uL; Eosinophils% 0.1 % (0-5); Hematocrit 31.5 % (40-54); Lymphocyte # 1.14 X10^3/ul (0.83-4.51); Lymphocyte % 7.8 % (19-41); Mean Corp Hgb Conc 31.7 g/dL (32-36); Mean Corpuscular Hgb 29.3 pg (27.0-32.0); Mean Corpuscular Volume 92.4 fL (80-94); Mean Platelet Vol. 11.1 fl (6.2-12.0); Monocyte# 0.95 X10^3/uL; Monocyte% 6.5 % (0-10); NRBC Flagged by Analyzer 0 % (0-5); Neutrophil # 12.44 X10^3/uL (2.7-7.7); Neutrophil % 84.9 % (47-70); Platelet Count 171 K/mm3 (150-450); RBC Distribution Width CV 12.8 % (11.6-14.6); RBC Distribution Width SD 42.8 fl (35.1-43.9); Red Blood Count 3.41 M/mm3 (4.6-6.2); White Blood Count 14.7 K/mm3 (4.4-11.0)
[2021-08-08 02:35] LABS: Anion Gap 4 (5-15); BUN 38 mg/dL (7-18); BUN/Creat Ratio 22.9 RATIO (10-20); Calcium,Total 8.8 mg/dL (8.5-10.1); Chloride 110 mmol/L (98-107); Creatinine, Serum 1.66 mg/dL (0.70-1.30); EST Glomerular Filtration Rate 45 mL/min (>60); Est Glom Filt Rate - Afr Amer 54 mL/min (>60); Estimated Creatinine Clearance 47.64 ml/min; Glucose 244 mg/dL (74-106); Sodium Level 140 mmol/L (136-145)
[2021-08-08 02:38] LABS: Vancomycin, Trough Level 9.1 ug/mL (5.0-15.0)
[2021-08-08] MEDS: busPIRone 15 MG TABLET 7.5 MG PO ×2 (05:58→14:32)
[2021-08-08] MEDS: Heparin Injection (Vial) 5,000 UNIT/ML VIAL 5000 UNIT SC (05:58)
[2021-08-08] MEDS: Insulin Lispro 100 UNIT/ML INSULN.PEN SC ×2 (06:12→12:10)
[2021-08-08 06:26] LABS: Bedside Glucose 198 mg/dL (70-110)
[2021-08-08] MEDS: Ipratropium/Albuterol Sulfate 3 ML AMPUL.NEB INHALATION ×2 (06:36→14:37)
--- NOTE | 2021-08-08 09:56 | PN.CC_ITS ---
Assessment & Plan Assessment/Plan (1) Acute respiratory failure with hypoxia: PLAN: RECOMMENDATIONS: 1. Continue antimicrobials while awaiting finalized infectious work-up. Anticipate 7 days of therapy required. 2. The patient may transition to Levaquin at discharge to complete his treat ment course of antimicrobials. 3. Wean supplemental oxygen to maintain saturations at or above 90%. 4. The patient would likely benefit from outpatient GI follow-up. 5. Encourage incentive spirometer use and mobilize patient as tolerated. 6. Perform walking oximetry study prior to consideration for discharge home. 7. The patient should follow-up in the pulmonary medicine clinic within 2 weeks of discharge. 8. Will sign off at this time. Please call with any additional questions. IMPRESSIONS: 1. Acute hypoxemic respiratory failure Most likely secondary to recurrent aspiration pneumonia. Agree with continuing empiric antimicrobials while awaiting infectious work-up. Oxygenation status has improved over the last 24 hours. Speech therapy is following. The patient would likely benefit from outpatient GI follow-up. Continue bronchopulmonary hygiene and wean supplemental oxygen to maintain saturations at or above 90%. Encourage incentive spirometer use and mobilize patient as tolerated. At discharge, the patient can be transitioned to Levaquin to complete 7 days of total treatment. He should follow-up in the pulmonary medicine clinic within 2 weeks of discharge. 2. History of silent aspiration The patient has been followed in the past by speech therapy. 3. History of restrictive lung disease/anemia/coronary artery disease/hypertension/hyperlipidemia/anxiety/depression Complicates care, management, recovery and prognosis. Continue home medications as indicated. This note was generated with [employer] dictation software. It may contain incorrect words, spelling, and punctuation that were not noted in checking the note before signing. Subjective Subjective The patient was seen and examined at the bedside this morning. Events from the last 24 hours have been reviewed. The patient is currently afebrile, hemodynamically stable and maintaining appropriate oxygen saturations on 2 L/min via nasal cannula. Blood pressures are a bit elevated this morning. Objective Data Objective Data The patient's most recent lab work, culture data and imaging studies have all been personally reviewed. Vital Signs: Vital Signs Temp Pulse Resp BP Pulse Ox 98.3 F 95 15 190/105 H 98 08/08/21 08:09 08/08/21 08:09 08/08/21 08:09 08/08/21 08:09 08/08/21 08:09 Oxygen Flow Rate (L/min) 2 Oxygen Delivery Method Nasal Cannula Weight: 121.2 kg Body Mass Index (BMI) 38.3 Intake & Output: Intake and Output for Last 24 Hours 08/06/21 08/07/21 08/08/21 23:59 23:59 23:59 Intake Total 1420 / 1420 3277.17 / 3497.17 270 / 270 Output Total 1375 / 1375 1974 1050 / 1050 Balance 45 / 45 1302.17 / 1522.17 -780 / -780 Lab / Micro Data Attestation: I reviewed the patient's lab results. Result Diagrams: 08/08/21 02:05 08/08/21 02:05 Labs: Laboratory Results - last 24 hr 08/07/21 14:00: POC Glucose 335 H 08/07/21 18:43: POC Glucose 370 H 08/07/21 21:50: POC Glucose 301 H 08/08/21 02:05: Vancomycin Trough 9.1 08/08/21 02:05: WBC 14.7 H, RBC 3.41 L, Hgb 10.0 L, Hct 31.5 L, MCV 92.4, MCH 29.3, MCHC 31.7 L, RDW Std Deviation 42.8, RDW Coeff of James 12.8, Plt Count 171, MPV 11.1, Immature Gran % (Auto) 0.500, Neut % (Auto) 84.9 H, Lymph % (Auto) 7.8 L, [place] % (Auto) 6.5, Eos % (Auto) 0.1, Baso % (Auto) 0.2, Absolute Neuts (auto) 12.4 H, Absolute Lymphs (auto) 1.14, Nucleated RBC % 0 08/08/21 02:05: Sodium 140, Potassium 4.0, Chloride 110 H, Carbon Dioxide 26.0, Anion Gap 4 L, BUN 38 H, Creatinine 1.66 H, Estim Creat Clear Calc 47.64, Est GFR (MDRD) Af Amer 54 L, Est GFR (MDRD) Non-Af 45 L, BUN/Creatinine Ratio 22.9 H , Glucose 244 H, Calcium 8.8 08/08/21 06:11: POC Glucose 198 H Micro: Microbiology 08/06/21 08:50 Blood Culture (Wb) - Right Hand Blood Culture - Preliminary No growth in 48 hours. 08/06/21 08:15 Blood Culture (Wb) - Anticubital Left Blood Culture - Preliminary No growth in 48 hours. 08/06/21 09:35 Urine, Clean Catch Urine Culture - Final Mixed Gram Pos & Gram Neg Org 08/06/21 14:06 Mucosa - Nasopharyngeal Respiratory Panel (PCR) - Final 08/06/21 09:55 Urine, Clean Catch Streptococcus pneumoniae Antigen (M - Final 08/06/21 09:55 Urine, Clean Catch Legionella Antigen - Final 08/06/21 08:50 Interface Orders SARS-CoV-2 Antigen (Rapid) - Final Rhythm Strip Rhythm Strip: Sinus Tach Rate: 114 Ectopy: None Physical Exam Const alert, oriented x3 and no apparent distress Constitutional Narrative: Sitting in bedside recliner. General Appearance: cooperative HEENT normocephalic and head/scalp atraumatic Eyes PERRL, EOMs intact bilaterally and conjunctivae normal Neck supple General: trachea midline Chest inspection of chest normal Resp normal respiratory effort Auscultation: wheezes; Negative for rales or rhonchi Cardio regular rate and regular rhythm GI normal to inspection, nondistended, normoactive bowel sounds Extremity no clubbing, cyanosis or edema Skin no rashes or lesions noted Neuro moves all extremities and no focal motor deficits Psych cooperative and affect normal Charges/Coding Visit Charges Inpatient E&M: 63600 Subs Hosp L2
--- NOTE | 2021-08-08 10:01 | CASEMGMT ---
Addendum entered by Becca Christensen 08/08/21 10:50: Pt qualifies for 2L at continuous and new order faxed to [facility]. Pt has portable tanks at home. Therapy is recommending [facility]. Yessica JENKINS CM Original Note: ZULMA order placed and call to Jessica at [facility] in regards to probable discharge today. Pt was set up with home oxygen thru [facility] in June at 3L w/ exertion. Kylie JENKINS aware to test pt on room air at rest, voices understanding. CM to follow. Yessica JENKINS CM
[2021-08-08] MEDS: Clopidogrel Bisulfate 75 MG Tablet PO (10:27)
[2021-08-08] MEDS: Pregabalin 75 MG Capsule PO (10:27)
[2021-08-08] MEDS: Nystatin Powder 15gm Bottle 1 APPLIC TOPICAL (10:27)
[2021-08-08] MEDS: Carvedilol 25 MG Tablet PO (10:27)
[2021-08-08] MEDS: FLUoxetine 20 MG Capsule PO (10:27)
[2021-08-08] MEDS: FLUoxetine 20 MG Capsule 40 MG PO (10:27)
[2021-08-08] MEDS: Isosorbide Mononitrate 30 MG Tablet PO (10:27)
[2021-08-08] MEDS: Pantoprazole Sodium 20 MG Tablet PO (10:27)
[2021-08-08] MEDS: Finasteride 5 MG Tablet PO (10:27)
[2021-08-08] MEDS: Losartan Potassium 100 MG Tablet PO (10:27)
[2021-08-08] MEDS: ALPRAZolam 0.5 MG Tablet PO (10:27)
[2021-08-08] MEDS: 0.9% Saline Lock 10 ML Syringe IV (10:29)
[2021-08-08 12:16] LABS: Bedside Glucose 225 mg/dL (70-110)
--- NOTE | 2021-08-08 12:37 | RAD_ITS ---
STUDY: X-RAY CHEST REASON FOR EXAM: Male, 61 years old. Pneumonia TECHNIQUE: AP and lateral views of the chest. COMPARISON: Comparison is made with prior study dated 08/06/2021. FINDINGS: EKG electrodes are seen. Residual left perihilar and left infrahilar infiltrate as well as at the right lung base although there has been moderate clearing as compared to prior study. Persistent elevation of the right hemidiaphragm. Normal size heart. Normal mediastinum and pat. Normal visualized pulmonary arteries. Normal visualized aortic arch and descending thoracic aorta. There are diffuse degenerative changes of the visualized thoracic spine. Normal visualized ribs, clavicles, and shoulders. There is no demonstrated abnormality of the visualized soft tissue structures of the upper abdomen. RAD/Chest PA and Lateral IMPRESSION: Improved aeration as compared to prior study. Mild residual changes persist. Electronically Signed: Den Carver MD at 12:52 EDT , Service support ,
--- NOTE | 2021-08-08 14:27 | DCINST_ITS ---
Discharge Instructions Diet Discharge Diet: 1800 Calorie Control Diet Activity Discharge Activity: Return to Normal Activity Follow Up Care Test Results: Test results from this visit will be discussed in further detail at your follow-up appointment, if applicable. Discharge Plan Admission Admit Date/Time: 08/06/21 10:26 Primary Reason for Your Visit: respiratory failure Attending Provider: Rubio Miller Primary Care Provider: Care Physician,No Primary Consulting Providers: Rosendo Foreman ; Stefano Lanier ; Sonal George TURBINE TECHNICIAN Instructions Patient Instructions: ED Chest Pain, Noncardiac Additional Instructions / Restrictions: Oxygen 2 L/min at rest, 3 L/min when ambulating Discharge Orders/Prescriptions Prescriptions: New levofloxacin 500 mg tablet 500 mg PO DAILY Qty: 6 RF: 0 Continued albuterol sulfate 90 mcg/actuation HFA aerosol inhaler 2 puff inhalation Q4H PRN (Reason: shortness of breath or wheezing) Qty: 8.5 RF: 3 fluoxetine 40 MG capsule 40 mg PO DAILY RF: 0 atorvastatin 80 MG tablet 80 mg PO QHS RF: 0 carvedilol 25 MG tablet 25 mg PO BID RF: 0 isosorbide mononitrate 30 MG tablet extended release 24 hr 30 mg PO DAILY RF: 0 clopidogrel 75 MG tablet 75 mg PO DAILY RF: 0 acetaminophen 500 MG tablet 1,000 mg PO BID PRN PRN (Reason: Pain 1-10 Or Fever) RF: 0 pantoprazole 20 MG tablet 20 mg PO DAILY RF: 0 alprazolam 0.5 MG tablet 0.5 mg PO BID RF: 0 nitroglycerin 0.4 MG tablet, sublingual 0.4 mg SL Q5M PRN (Reason: Chest Pain) RF: 0 buspirone 7.5 MG tablet 7.5 mg PO TID RF: 0 losartan 100 MG tablet 100 mg PO DAILY RF: 0 finasteride 5 MG tablet 5 mg PO DAILY RF: 0 insulin lispro 100 UNIT/ML insulin pen See Protocol unit SQ TIDCM RF: 0 insulin detemir U-100 100 UNIT/ML insulin pen 28 unit SQ QHS RF: 0 pregabalin [Lyrica] 75 mg Capsule 75 mg PO BID RF: 0 trazodone 100 MG tablet 100 mg PO QHS Qty: 0 RF: 0 fluoxetine 20 MG capsule 20 mg PO DAILY Qty: 0 RF: 0 exenatide microspheres 2 mg/0.65 mL Pen Injector 2 mg SUBCUT QWEEK RF: 0 furosemide 40 MG tablet 40 mg PO DAILY RF: 0 nystatin [[facility]] 100,000 unit/gram powder 1 applic topical BID PRN (Reason: Rash) RF: 0 clotrimazole 1 % cream 1 applic topical BID PRN (Reason: Rash) RF: 0 Referrals / Follow Up: Stefano Lanier DO [STAFF PHYSICIAN] - Within 2 Weeks Care Physician,No Primary [Primary Care Provider] - Within 2 Weeks Disposition Disposition (needs filled in before D/C Order can be placed): Home, Self Care
--- NOTE | 2021-08-08 16:06 | CASEMGMT ---
Pt updated on new O2 script and [facility]HC ZULMA. Pt/ voice no further questions/concerns/needs and are awaiting d/c. Yessica JENKINS CM
--- NOTE | 2021-08-08 18:01 | DS.PCM_ITS ---
Providers Date of Admission: 08/06/21 Date of Discharge: 08/08/21 Primary Care Physician: Suzanna Primary Care Phys Consultations 08/06/21 13:15 Consult: Pediatric Assistant / Pulmonary Medicine Routine Consulting Provider: Pulmonary Medicine matheus Velazco Reason for Consult: [id number] ADMISSIONS FOR RESPIRATORY FAILURE EMERGENT Consult: No MD Notified: Yes Date Notified: 08/06/21 Time Notified: 14:06 Method of Notification: Text Reason For Visit: SEPSIS Diagnosis Discharge Diagnosis (1) Acute respiratory failure with hypoxia: Status: Acute Code(s): J96.01 - Acute respiratory failure with hypoxia Plan: Discharge diagnosis: #1 acute on chronic hypoxemic respiratory failure #2 community-acquired pneumonia-organism unknown #3 sepsis secondary to community-acquired pneumonia-organism unknown #4 acute kidney injury #5 chronic kidney disease stage IIIa secondary to type 2 diabetes #6 type 2 diabetes #7 coronary artery disease #8 essential hypertension Medications at Discharge Home Medications acetaminophen 1,000 mg PO BID PRN PRN 02/11/21 alprazolam 0.5 mg PO BID 02/11/21 atorvastatin 80 mg PO QHS 02/11/21 buspirone 7.5 mg PO TID 02/11/21 carvedilol 25 mg PO BID 02/11/21 clopidogrel 75 mg PO DAILY 02/11/21 finasteride 5 mg PO DAILY 02/11/21 fluoxetine 40 mg PO DAILY 02/11/21 insulin detemir U-100 28 unit SQ QHS 02/11/21 insulin lispro See Protocol SQ TIDCM 02/11/21 isosorbide mononitrate 30 mg PO DAILY 02/11/21 losartan 100 mg PO DAILY 02/11/21 nitroglycerin 0.4 mg SL Q5M PRN 02/11/21 pantoprazole 20 mg PO DAILY 02/11/21 pregabalin [Lyrica] 75 mg PO BID 05/13/21 fluoxetine 20 mg PO DAILY #0 cap 07/02/21 trazodone 100 mg PO QHS #0 tab 07/02/21 exenatide microspheres 2 mg SUBCUT QWEEK 07/10/21 furosemide 40 mg PO DAILY 07/10/21 albuterol sulfate 90 mcg/actuation aerosol inhaler 2 puff INHALATION Q4H PRN #8.5 g 07/24/21 clotrimazole 1 applic TOPICAL BID PRN 08/06/21 nystatin [Nyamyc] 1 applic TOPICAL BID PRN 08/06/21 levofloxacin 500 mg PO DAILY #6 tab 08/08/21 Hospital Course Operations None Procedures None Summary of Care Provided Minutes Spent on Discharge: 32 Hospital Course: This 61-year-old white male was seen in the emergency room at [facility] with complaints of shortness of breath. Patient used home oxygen at home at 3 L/min. Work-up in the emergency room included a white blood cell count which was elevated, patient required BiPAP to maintain his pulse ox above 90%, he was given DuoNeb aerosol treatment and Solu-Medrol IV, he was started on IV antibiotics, COVID-19 test was negative. Patient's creatinine was elevated. Patient was admitted to PCU, he was maintained on IV antibiotics, he was seen in consultation by pulmonary medicine. Patient's Lasix was held due to his elevated creatinine. Patient's medical condition stab ilized and improved during his hospitalization. On 08/08/2021, patient was seen and examined: On examination he appeared in good health and spirits. Vital signs as documented. Skin warm and dry and without overt rashes. Neck without JVD, neck was supple, trachea midline, thyroid was normal. Lungs clear bilaterally, normal air movement was noted. Heart exam notable for regular rhythm, normal sounds and absence of murmurs, rubs or gallops. Abdomen unremarkable and without evidence of organomegaly, masses, or abdominal aortic enlargement. Bowel sounds are present, abdomen is not distended. Extremities nonedematous, no cyanosis was noted, no clubbing was noted. Neuro: Cranial nerves II through XII are grossly intact, no focal motor deficits were noted, sensation to light touch and pinprick intact, motor exam 5/5 throughout. Psych: Patient is alert and oriented x3, he does not appear anxious or depressed, he does not appear agitated. Patient was discharged home in stable condition on 08/08/2021, patient required oxygen at 3 L when ambulating to maintain his pulse ox, he required oxygen at 2 L at rest to maintain his pulse ox. His pulse ox on room air was 88%. He was expected to use oxygen in his home and outside his home and be compliant with this. Weight / BMI Weight Weight: 121.2 kg Body Mass Index (BMI) 38.3 ABG / Lab / Microbiology Data Result Diagrams: 08/08/21 02:05 08/08/21 02:05 Laboratory: Laboratory Results - last 24 hr 08/07/21 18:43: POC Glucose 370 H 08/07/21 21:50: POC Glucose 301 H 08/08/21 02:05: Vancomycin Trough 9.1 08/08/21 02:05: WBC 14.7 H, RBC 3.41 L, Hgb 10.0 L, Hct 31.5 L, MCV 92.4, MCH 29.3, MCHC 31.7 L, RDW Std Deviation 42.8, RDW Coeff of James 12.8, Plt Count 171, MPV 11.1, Immature Gran % (Auto) 0.500, Neut % (Auto) 84.9 H, Lymph % (Auto) 7.8 L, Lee % (Auto) 6.5, Eos % (Auto) 0.1, Baso % (Auto) 0.2, Absolute Neuts (auto) 12.4 H, Absolute Lymphs (auto) 1.14, Nucleated RBC % 0 08/08/21 02:05: Sodium 140, Potassium 4.0, Chloride 110 H, Carbon Dioxide 26.0, Anion Gap 4 L, BUN 38 H, Creatinine 1.66 H, Estim Creat Clear Calc 47.64, Est GFR (MDRD) Af Amer 54 L, Est GFR (MDRD) Non-Af 45 L, BUN/Creatinine Ratio 22.9 H , Glucose 244 H, Calcium 8.8 08/08/21 06:11: POC Glucose 198 H 08/08/21 12:08: POC Glucose 225 H Microbiology: Microbiology 08/07/21 17:00 Sputum, Expectorated/Coughed Gram Stain - Final 08/07/21 17:00 Sputum, Expectorated/Coughed Respiratory Culture - Pr eliminary Appears to be normal respiratory hina. Further studies to follow. 08/06/21 08:50 Blood Culture (Wb) - Right Hand Blood Culture - Preliminary No growth in 48 hours. 08/06/21 08:15 Blood Culture (Wb) - Anticubital Left Blood Culture - Preliminary No growth in 48 hours. 08/06/21 09:35 Urine, Clean Catch Urine Culture - Final Mixed Gram Pos & Gram Neg Org 08/06/21 14:06 Mucosa - Nasopharyngeal Respiratory Panel (PCR) - Final 08/06/21 09:55 Urine, Clean Catch Streptococcus pneumoniae Antigen (M - Final 08/06/21 09:55 Urine, Clean Catch Legionella Antigen - Final 08/06/21 08:50 Interface Orders SARS-CoV-2 Antigen (Rapid) - Final Radiography Diagnostic Testing: Radiology Impression Chest X-Ray 08/08/21 12:37 IMPRESSION: Improved aeration as compared to prior study. Mild residual changes persist. Electronically Signed: Den Carver MD at 12:52 EDT , Service support , D/C Instructions Discharge Diet: 1800 Calorie Control Diet Meaningful Use Info Meaningful Use Diagnoses (Choose all that apply): None applicable Discharge Plan Admission Admit Date/Time: 08/06/21 10:26 Primary Reason for Your Visit: respiratory failure Attending Provider: Rubio Miller Primary Care Provider: Care Physician,No Primary Consulting Providers: Rosendo Foreman ; Stefano Lanier ; Sonal George SHAFT MECHANIC Instructions Patient Instructions: ED Chest Pain, Noncardiac Additional Instructions / Restrictions: Oxygen 2 L/min at rest, 3 L/min when ambulating Discharge Orders/Prescriptions Prescriptions: New levofloxacin 500 mg tablet 500 mg PO DAILY Qty: 6 RF: 0 Continued albuterol sulfate 90 mcg/actuation HFA aerosol inhaler 2 puff inhalation Q4H PRN (Reason: shortness of breath or wheezing) Qty: 8.5 RF: 3 fluoxetine 40 MG capsule 40 mg PO DAILY RF: 0 atorvastatin 80 MG tablet 80 mg PO QHS RF: 0 carvedilol 25 MG tablet 25 mg PO BID RF: 0 isosorbide mononitrate 30 MG tablet extended release 24 hr 30 mg PO DAILY RF: 0 clopidogrel 75 MG tablet 75 mg PO DAILY RF: 0 acetaminophen 500 MG tablet 1,000 mg PO BID PRN PRN (Reason: Pain 1-10 Or Fever) RF: 0 pantoprazole 20 MG tablet 20 mg PO DAILY RF: 0 alprazolam 0.5 MG tablet 0.5 mg PO BID RF: 0 nitroglycerin 0.4 MG tablet, sublingual 0.4 mg SL Q5M PRN (Reason: Chest Pain) RF: 0 buspirone 7.5 MG tablet 7.5 mg PO TID RF: 0 losartan 100 MG tablet 100 mg PO DAILY RF: 0 finasteride 5 MG tablet 5 mg PO DAILY RF: 0 insulin lispro 100 UNIT/ML insulin pen See Protocol unit SQ TIDCM RF: 0 insulin detemir U-100 100 UNIT/ML insulin pen 28 unit SQ QHS RF: 0 pregabalin [Lyrica] 75 mg Capsule 75 mg PO BID RF: 0 trazodone 100 MG tablet 100 mg PO QHS Qty: 0 RF: 0 fluoxetine 20 MG capsule 20 mg PO DAILY Qty: 0 RF: 0 exenatide microspheres 2 mg/0.65 mL Pen Injector 2 mg SUBCUT QWEEK RF: 0 furosemide 40 MG tablet 40 mg PO DAILY RF: 0 nystatin [Nyamyc] 100,000 unit/gram powder 1 applic topical BID PRN (Reason: Rash) RF: 0 clotrimazole 1 % cream 1 applic topical BID PRN (Reason: Rash) RF: 0 Referrals / Follow Up: Stefano Lanier DO [STAFF PHYSICIAN] - 09/04/21 11:15 am Care Physician,No Primary [Primary Care Provider] - Within 2 Weeks Disposition Disposition (needs filled in before D/C Order can be placed): Home, Self Care Charges/Coding Visit Charges Inpatient E&M: 46532 Disch Hosp
[2021-08-09 04:07] LABS: Immunoglobulin A 418 mg/dL (61-437); Immunoglobulin G 1236 mg/dL (603-1613); Immunoglobulin M 40 mg/dL (20-172)
[2021-08-09 13:57] LABS: Immunoglobulin E 26 IU/mL (6-495)
--- NOTE | 2021-08-12 13:55 | CASEMGMT ---
ALICE PHOENIX Discharge Follow-up Phone Call: YOUSIF: Skinny Strata: 4 Call Date: 08/12/21 Discharge Date: 08/08/21 Time of Call: [id number] Admitting Diagnosis: Acute Respiratory Failure This RN CM attempted to contact pt via phone for discharge follow-up. A nondescript voicemail was received and a nondescript message was left requesting a return call. Cole Boyle RN CM
--- NOTE | 2021-08-12 14:02 | CASEMGMT ---
ALICE PHOENIX Discharge Follow-up: Pt returned this ALICE PHOENIX's phone call and states he has been doing well since discharge. States his home health RN has been to visit and this morning and his VS and BS were wnl. Pt was very pleased with these values. Pt states he has been able to get out of the house for dinner and a few groceries. Pt states he has been eating low sodium foods. Pt states he has family that are very helpful in assisting him as needed. Pt denies any questions or concerns regarding his discharge. Cole Boyle RN CM
== END 2021-08-08 16:17 | disposition home or self-care (01) | DRG 871 ==
LOC: ED 10:17 → PCU 10:50
PROVIDERS: Admitting Provider Internal Medicine; Emergency Provider Emergency Medicine; Visit Provider Internal Medicine
DX: A41.9 Sepsis, unspecified organism (principal); J96.21 Acute and chronic respiratory failure with hypoxia; J18.9 Pneumonia, unspecified organism; N17.9 Acute kidney failure, unspecified; Z68.41 Body mass index [BMI] 40.0-44.9, adult; J47.0 Bronchiectasis with acute lower respiratory infection; R79.89 Other specified abnormal findings of blood chemistry; I12.9 Hypertensive chronic kidney disease with stage 1 through stage 4 chronic kidney disease, or unspecified chronic kidney disease; E11.22 Type 2 diabetes mellitus with diabetic chronic kidney disease; N18.31 Chronic kidney disease, stage 3a; E11.51 Type 2 diabetes mellitus with diabetic peripheral angiopathy without gangrene; D64.9 Anemia, unspecified; E66.9 Obesity, unspecified; Z68.38 Body mass index [BMI] 38.0-38.9, adult; E78.5 Hyperlipidemia, unspecified; E86.0 Dehydration; F32.9 Major depressive disorder, single episode, unspecified; F41.9 Anxiety disorder, unspecified; G43.909 Migraine, unspecified, not intractable, without status migrainosus; G47.30 Sleep apnea, unspecified; H54.62 Unqualified visual loss, left eye, normal vision right eye; K59.00 Constipation, unspecified; I25.10 Atherosclerotic heart disease of native coronary artery without angina pectoris; I25.2 Old myocardial infarction; K21.9 Gastro-esophageal reflux disease without esophagitis; Z95.5 Presence of coronary angioplasty implant and graft; Z86.718 Personal history of other venous thrombosis and embolism; Z87.442 Personal history of urinary calculi; Z86.19 Personal history of other infectious and parasitic diseases; Z99.81 Dependence on supplemental oxygen; Z79.4 Long term (current) use of insulin; Z79.02 Long term (current) use of antithrombotics/antiplatelets; Z79.899 Other long term (current) drug therapy; Z89.421 Acquired absence of other right toe(s); Z87.01 Personal history of pneumonia (recurrent)
CPT/HCPCS: 36415; 71045; 71046; 80048; 80053; 80202; 81001; 82784; 82785; 82962; 83605; 83735; 83880; 84100; 84484; 85025; 85027; 85379; 85610; 85730; 87040; 87070; 87086; 87088; 87205; 87426; 87449; 87633; 87635; 87641; 92526; 92610; 93005; 94002; 94640; 94667; 94668; 97110; 97162; 97166; 97530; 97535; 99251; 99285; J7030; J7040; U0005; A4216; G0463; J2405; U0003

== ENCOUNTER → 2021-08-19 14:54 | Outpatient (CLI) | payer MEDICARE, MEDICAID, SELFPAY ==
--- NOTE | 2021-08-19 14:56 | US_ITS ---
STUDY: RENAL ULTRASOUND - COMPLETE REASON FOR EXAM: Male, 61 years old. ACUTE ON CHRONIC RENAL FAILURE TECHNIQUE: Ultrasound evaluation of the kidneys was performed with real-time and static crawford-scale imaging. COMPARISON: None. FINDINGS: RIGHT KIDNEY: Normal location of the right kidney, which is normal in size. The right kidney measures 13.9 cm x 6.5 cm x 6.6 cm. There is a normal cortex of the right kidney. The renal cortex measures 1.2 cm. There is no right renal mass or cyst. There are no right renal calculi. There is no right hydronephrosis. DISTAL RIGHT URETER: There is non-visualization of the distal right ureter. There is no demonstrated right ureterovesical junction calculus. There is a visualized right ureteral jet. LEFT KIDNEY: Normal location of the left kidney, which is normal in size. The left kidney measures 12.8 cm x 4.7 cm x 5.6 cm. There is a normal cortex of the left kidney. The renal cortex measures 1.3 cm. There is a 5 mm x 7 mm x 6 mm cortical cyst. There are no left renal calculi. There is no left hydronephrosis. DISTAL LEFT URETER: There is non-visualization of the distal left ureter. There is no demonstrated left ureterovesical junction calculus. There is a visualized left ureteral jet. BLADDER: The distended urinary bladder has a volume of 155 ml. There is a normal wall thickness of the distended urinary bladder. There is no demonstrated mass within the urinary bladder. There are no demonstrated bladder calculi. US/Kidney and Bladder IMPRESSION: Small left renal cyst. Electronically Signed: Den Carver MD at 9:32 EDT , Service support ,
== END ==
PROVIDERS: PCP Internal Medicine; Visit Provider Internal Medicine Nephrology
DX: N17.9 Acute kidney failure, unspecified (principal)
CPT/HCPCS: 76770

== ENCOUNTER 2021-09-02 14:43 | Inpatient (IN) | payer MEDICARE, MEDICAID, SELFPAY ==
[2021-09-02] VITALS (8 sets, daily range): BP systolic 117–148; BP diastolic 63–88; PULSE 80–102; RESP 15–27; TEMP 36.9–38.2; O2SAT 94–98; BMI 38.7; BMI 38.3
--- NOTE | 2021-09-02 15:12 | EDS_ITS ---
HPI History of Present Illness Chief Complaint: Fever Detail of Chief Complaint: Fever initially started last evening Informant: patient and spouse/S.O. Narrative Narrative: Patient presents to the emergency department complaint of a fever. Patient states that he started having some chills last evening. He developed a cough and is bringing up some white-colored sputum. Patient overall feels weak. Patient has history of silent aspiration and has had pneumonia 6 times since May per . Patient denies any shortness of breath. Patient is on chronic home O2 and normally is on 2 L. Patient denies any Covid exposures and has had the Covid vaccine. Patient complains of urinary frequency but states that is chronic. He denies dysuria. Prior similar symptoms: [facility] Medical History (Updated 09/02/21 @ 16:[address] Crystal Luna, DO) Amputation of one or more toes Anxiety Anxiety and depression Bronchiectasis with (acute) exacerbation CAD (coronary artery disease) Chest pain Congestive heart failure (CHF) COPD (chronic obstructive pulmonary disease) CPAP (continuous positive airway pressure) dependence Depression Diabetes GERD (gastroesophageal reflux disease) Hypertension Kidney stones Kidney stones Migraines Mood disorder Myocardial infarct Non-smoker On home oxygen therapy PAD (peripheral artery disease) Pneumonia Pulmonary nodule, left Sepsis Severe sepsis Sleep apnea Vision loss of left eye Home Medications acetaminophen 1,000 mg PO BID PRN PRN 02/11/21 [History Last Taken 07/09/21] alprazolam 0.5 mg PO BID 02/11/21 [History Last Taken 08/05/21 21:00] atorvastatin 80 mg PO QHS 02/11/21 [History Last Taken 08/05/21 17:00] carvedilol 25 mg PO BID 02/11/21 [History Last Taken 08/05/21 21:00] clopidogrel 25 mg PO BID 02/11/21 [History Last Taken 08/05/21 09:00] finasteride 5 mg PO DAILY 02/11/21 [History Last Taken 08/05/21 09:00] fluoxetine 40 mg PO DAILY 02/11/21 [History Last Taken 08/05/21 09:00] insulin detemir U-100 28 unit SQ QHS 02/11/21 [History Last Taken 08/05/21 21:00] insulin lispro See Protocol SQ TIDCM 02/11/21 [History Last Taken 08/05/21 17:00] isosorbide mononitrate 30 mg PO DAILY 02/11/21 [History Last Taken 08/05/21 09:00] nitroglycerin 0.4 mg SL Q5M PRN 02/11/21 [History Last Taken 02/08/21] pantoprazole 20 mg PO DAILY 02/11/21 [History Last Taken 08/05/21 09:00] pregabalin [Lyrica] 75 mg PO BID 05/13/21 [History Last Taken 08/05/21 21:00] trazodone 100 mg PO QHS #0 tab 07/02/21 [Rx Last Taken 08/05/21 21:00] exenatide microspheres 2 mg SUBCUT QWEEK 07/10/21 [History Last Taken 07/31/21] albuterol sulfate 90 mcg/actuation aerosol inhaler 2 puff INHALATION Q4H PRN #8.5 g 07/24/21 [Rx Last Taken Unknown] clotrimazole 1 applic TOPICAL BID PRN 08/06/21 [History Last Taken Unknown] nystatin [Nyamyc] 1 applic TOPICAL BID PRN 08/06/21 [History Last Taken Unknown] buspirone 7.5 mg tablet 15 mg PO TID tab 08/15/21 [History Last Taken Unknown] fluoxetine 20 mg capsule 20 mg PO DAILY cap 08/15/21 [History Last Taken Unknown] losartan 50 mg tablet 50 mg PO DAILY #90 tab 08/15/21 [Rx Last Taken Unknown] furosemide 40 mg PO DAILY 09/02/21 [History Last Taken Unknown] spironolactone 50 mg PO DAILY 09/02/21 [History Last Taken Unknown] Allergy/AdvReac Type Severity Reaction Status Date / Time allopurinol AdvReac Vomiting Verified 09/02/21 14:51 Influenza Virus Vaccines AdvReac Vomiting Verified 09/02/21 14:51 pneumococcal vaccine AdvReac Vomiting Verified 09/02/21 14:51 Family History Mother Diabetes Heart disease CHF Father Heart disease [place]/CAD Myocardial infarction Surgical History H/O lithotripsy History of ankle surgery History of coronary artery stent placement Hx of toe surgery S/P peripheral artery angioplasty with stent placement S/P thyroid surgery Social History household members: spouse housing: apartment Smoking Status: Never smoker alcohol intake: never substance use type: does not use ROS ROS ED Constitutional Constitutional ED: Reports systems reviewed and no addt'l complaints, except as documented, chills, fever(s) and sweats; Denies body ache(s) or change in weight Eyes Eyes: Denies acute decrease in peripheral vision, change in vision, double vision or loss of vision ENT ENT ED: Reports none; Denies ear pain, lip swelling, loss taste/smell, neck pain, otalgia or sore throat Cardiovascular Cardiovascular: Reports none; Denies abdominal pain, chest pain with activity, leg edema, lightheadedness, palpitations, rapid heart rate or syncope Respiratory/Chest Respiratory/Chest: Reports none, cough and sputum; Denies change in mental status, dry cough, dyspnea, hemoptysis, shortness of breath at rest or shortness of breath with exertion Gastrointestinal Gastrointestinal: Reports none; Denies abdominal pain, change in stool charac ter, diarrhea, hematemesis, hematochezia, melena, rectal bleeding or vomiting Genitourinary Genitourinary ED: Reports none and urinary frequency; Denies abdominal discomfort, anuria, dysuria, genital pain or polyuria Musculoskeletal Musculoskeletal: Reports none; Denies arthralgias, back pain, difficulty walking, extremity pain, muscle weakness or myalgias Integumentary Reports none; Denies abscess or rash Neurologic Neurologic: Reports none; Denies abnormal gait, confusion, focal weakness, frequent falls, headache(s), loss of vision, numbness, paresthesias, radicular pain, vertigo or weakness Psychiatric Psychiatric: Reports systems reviewed and no addt'l complaints, except as documented and none; Denies behavioral changes, confusion, difficulty concentrating, hallucinations, suicidal ideation, tactile hallucinations or visual hallucinations Endocrine Endocrinology: Denies none, cold intolerance, excessive sweating, fatigue or heat intolerance Hematologic/Lymphatic Hematologic/Lymphatic: Reports none; Denies anemia, easy bleeding or easy bruising Allergic/Immunologic Allergic/Immunologic ED: Denies as per HPI, none, lip swelling, mouth swelling, throat swelling, tongue swelling or hives EXAM Physical Exam Const Vital Signs: 09/02/21 14:46 09/02/21 14:50 Temperature 100.7 F H 100.7 F H Temperature Source Oral Oral Pulse Rate 101 H 101 H Respiratory Rate 27 H 19 H Respiratory Effort Short of Breath Respiratory Pattern Normal Blood Pressure 148/88 H Blood Pressure Mean 108 Pulse Ox 96 98 Oxygen Delivery Method Nasal Cannula Nasal Cannula Oxygen Flow Rate (L/min) 3 3 Positive well nourished and well developed General Appearance ED: well developed and NAD HEENT Reports TM's clear and moist mucous membranes normocephalic and atraumatic; Negative for trauma or tenderness Tympanic Membrane ED: Yes TM's clear Eyes PERRL and EOMs intact bilaterally General Eye ED: Negative for pale conjunctiva or scleral icterus Neck no lymphadenopathy, supple and no JVD General: Negative for tenderness Chest Wall inspection of chest normal and palpation of chest normal Chest: Negative for tenderness Resp normal respiratory effort and clear to auscultation bilaterally Effort and Inspection: Negative for respiratory distress or pain with movement Auscultation: rhonchi; Negative for wheezes or diminished lung sounds Cardio regular rate, regular rhythm, S1 normal heart sound, S2 normal heart sound and no murmurs Peripheral Pulses: pulses 2+ throughout GI normal to inspection, nondistended, normoactive bowel sounds, soft to palpation, non-tender, non-distended and no masses Back/Spine no CVA tenderness and no thoracic nor lumbar tenderness Extremity normal to inspection General Extremety ED: Negative for edema General Extremity: Negative for edema Neuro oriented x3, CN's II-XII intact bilaterally, no sensory deficits noted and gait normal Sensorium / Orientation: awake, alert, oriented to person, oriented to place and oriented to time Motor Exam: strength 5/5 throughout and strength abnormal Psych mental status grossly normal Skin no rashes or lesions noted and no wounds MDM MDM MDM Narrative Medical decision making narrative: Results discussed with patient and his significant other. Recommended admission. Patient was started on Zosyn. Case will be discussed with hospitalist evaluate for admission. Lab Data Attestation: I reviewed the patient's lab results. Labs: Laboratory Results - last 24 hr 09/02/21 09/02/21 09/02/21 15:47 15:50 15:50 WBC 15.7 H RBC 3.82 L Hgb 10.9 L Hct 34.4 L MCV 90.1 MCH 28.5 MCHC 31.7 L RDW Std Deviation 42.2 RDW Coeff of James 12.8 Plt Count 174 MPV 11.0 Immature Gran % (Auto) 0.400 Neut % (Auto) 86.9 H Lymph % (Auto) 6.5 L [place] % (Auto) 5.6 Eos % (Auto) 0.4 Baso % (Auto) 0.2 Absolute Neuts (auto) 13.6 H Absolute Lymphs (auto) 1.02 Nucleated RBC % 0 Sodium 143 Potassium 3.9 Chloride 103 Carbon Dioxide 35.0 H Anion Gap 5 BUN 18 Creatinine 1.28 Estim Creat Clear Calc 61.78 Est GFR (MDRD) Af Amer 73 Est GFR (MDRD) Non-Af 60 BUN/Creatinine Ratio 14.1 Glucose 145 H Calcium 8.9 Total Bilirubin 0.50 AST 18 ALT 17 Alkaline Phosphatase 101 Total Protein 6.9 Albumin 3.0 L Globulin 3.9 Albumin/Globulin Ratio 0.8 L Urine Color Yellow Urine Clarity Clear Urine pH 8.0 Ur Specific [place] 1.015 Urine Protein 15 H Urine Glucose (UA) Normal Urine Ketones Negative Urine Occult Blood Negative Urine Nitrite Negative Urine Bilirubin Negative Urine Urobilinogen Normal Ur Leukocyte Esterase Negative Urine RBC 0 SEEN Urine WBC 0 SEEN Ur Squamous Epith Cells 0-5 SEEN Urine Bacteria 0 SEEN Urine Mucus 0 SEEN Radiography Chest X-Ray - ED: 1 View Diagnostic Testing: Radiology Impression Chest X-Ray 09/02/21 15:50 IMPRESSION: Persistent bilateral infiltrates. Electronically Signed: Bryan Tam MD at 16:14 EDT , Service support , 1 view chest x-ray obtained interpreted by myself as increased markings both lower lobes. Radiology in agreement and suspect persistent bilateral infiltrates. Discharge Plan Triage Chief Complaint: Fever ED Provider: Crystal Luna Dx/Rx/DC Orders Clinical Impression: Pneumonia, Acute dyspnea Prescriptions: No Action albuterol sulfate 90 mcg/actuation HFA aerosol inhaler 2 puff inhalation Q4H PRN (Reason: shortness of breath or wheezing) Qty: 8.5 RF: 3 fluoxetine 20 mg capsule 20 mg PO DAILY RF: 0 losartan 50 mg tablet 50 mg PO DAILY Qty: 90 RF: 1 fluoxetine 40 MG capsule 40 mg PO DAILY RF: 0 atorvastatin 80 MG tablet 80 mg PO QHS RF: 0 carvedilol 25 MG tablet 25 mg PO BID RF: 0 isosorbide mononitrate 30 MG tablet extended release 24 hr 30 mg PO DAILY RF: 0 clopidogrel 75 MG tablet 25 mg PO BID RF: 0 acetaminophen 500 MG tablet 1,000 mg PO BID PRN PRN (Reason: Pain 1-10 Or Fever) RF: 0 pantoprazole 20 MG tablet 20 mg PO DAILY RF: 0 alprazolam 0.5 MG tablet 0.5 mg PO BID RF: 0 nitroglycerin 0.4 MG tablet, sublingual 0.4 mg SL Q5M PRN (Reason: Chest Pain) RF: 0 finasteride 5 MG tablet 5 mg PO DAILY RF: 0 insulin lispro 100 UNIT/ML insulin pen See Protocol unit SQ TIDCM RF: 0 insulin detemir U-100 100 UNIT/ML insulin pen 28 unit SQ QHS RF: 0 buspirone 7.5 mg tablet 15 mg PO TID RF: 0 pregabalin [Lyrica] 75 mg Capsule 75 mg PO BID RF: 0 trazodone 100 MG tablet 100 mg PO QHS Qty: 0 RF: 0 exenatide microspheres 2 mg/0.65 mL Pen Injector 2 mg SUBCUT QWEEK RF: 0 nystatin [Nyamyc] 100,000 unit/gram powder 1 applic topical BID PRN (Reason: Rash) RF: 0 clotrimazole 1 % cream 1 applic topical BID PRN (Reason: Rash) RF: 0 spironolactone 25 mg tablet 50 mg PO DAILY RF: 0 furosemide 20 mg tablet 40 mg PO DAILY RF: 0 Primary Care Provider: Doretha Brown Referrals: Doretha Brown MD [Primary Care Provider] - Disposition Disposition: Acute Care Hospital [facility]
--- NOTE | 2021-09-02 15:50 | RAD_ITS ---
STUDY: X-RAY CHEST REASON FOR EXAM: Male, 61 years old. Fever, cough TECHNIQUE: Single AP portable view of the chest. COMPARISON: August 08, 2021 FINDINGS: There is stable elevation of the right hemidiaphragm. There is bilateral mid and lower lung consolidation. There is no demonstrated pleural abnormality. Normal size heart. Normal mediastinum and pat. Normal visualized pulmonary arteries. Normal visualized aortic arch and descending thoracic aorta. There is arthritic change of the thoracic spine. Normal visualized ribs, clavicles, and shoulders. There is no demonstrated abnormality of the visualized soft tissue structures of the upper abdomen. RAD/Chest 1 View (Portable) IMPRESSION: Persistent bilateral infiltrates. Electronically Signed: Bryan Tam MD at 16:14 EDT , Service support ,
[2021-09-02] MEDS: 0.9% Normal Saline 1,000 ML 150 ML IV (15:52)
[2021-09-02 15:58] LABS: Bacteria 0 SEEN /hpf (None Seen); Mucous, Urine 0 SEEN /hpf (<or=2+); Red Blood Cells-Urine 0 SEEN /hpf (0-5); White Blood Cells 0 SEEN /hpf (0-5)
[2021-09-02 15:59] LABS: Absolute Lymphocyte Count 1.02 X10^3/uL (0.83-4.51); Absolute Neutrophil Count 13.6 X10^3/uL (2.0-7.7); Basophil# 0.03 X10^3/uL; Basophil% 0.2 % (0-1); Eosinophil# 0.07 X10^3/uL; Eosinophils% 0.4 % (0-5); Hematocrit 34.4 % (40-54); Hemoglobin 10.9 g/dL (13.0-16.5); Lymphocyte # 1.02 X10^3/ul (0.83-4.51); Lymphocyte % 6.5 % (19-41); Mean Corp Hgb Conc 31.7 g/dL (32-36); Mean Corpuscular Hgb 28.5 pg (27.0-32.0); Mean Corpuscular Volume 90.1 fL (80-94); Monocyte# 0.88 X10^3/uL; Monocyte% 5.6 % (0-10); NRBC Flagged by Analyzer 0 % (0-5); Neutrophil # 13.62 X10^3/uL (2.7-7.7); Neutrophil % 86.9 % (47-70); Platelet Count 174 K/mm3 (150-450); RBC Distribution Width CV 12.8 % (11.6-14.6); RBC Distribution Width SD 42.2 fl (35.1-43.9); Red Blood Count 3.82 M/mm3 (4.6-6.2); White Blood Count 15.7 K/mm3 (4.4-11.0)
[2021-09-02 16:01] LABS: Color, Urine Yellow (Yellow); Glucose, Dipstick Normal (Normal); Ketone-Dipstick Negative (Negative); Leukocyte Esterase-Dipstick Negative /ul (Negative); Nitrite-Dipstick Negative (Negative); Occult Blood-Urine Negative /ul (Negative); Protein-Dipstick 15 mg/dl (Negative); Specific Gravity, Urine 1.015 (1.002-1.030); Urine Bilirubin Dipstick Negative (Negative); Urine Clarity Clear (Clear); Urine Urobilinogen Normal (Normal)
[2021-09-02 16:10] LABS: Squamous Epithelial Cells - UA 0-5 SEEN /hpf (0-5)
[2021-09-02 16:22] LABS: ALB/GLOB Ratio 0.8 RATIO (0.9-2.4); AST(SGOT) 18 U/L (15-37); Alanine Aminotransfer ALT/SGPT 17 U/L (16-61); Alkaline Phosphatase 101 U/L (45-117); Anion Gap 5 (5-15); BUN 18 mg/dL (7-18); BUN/Creat Ratio 14.1 RATIO (10-20); Calcium,Total 8.9 mg/dL (8.5-10.1); Chloride 103 mmol/L (98-107); Creatinine, Serum 1.28 mg/dL (0.70-1.30); EST Glomerular Filtration Rate 60 mL/min (>60); Est Glom Filt Rate - Afr Amer 73 mL/min (>60); Estimated Creatinine Clearance 61.78 ml/min; Globulin 3.9 g/dL (2.2-4.2); Glucose 145 mg/dL (74-106); Potassium 3.9 mmol/L (3.5-5.1); Protein, Total 6.9 g/dL (6.4-8.2); Sodium Level 143 mmol/L (136-145)
--- NOTE | 2021-09-02 16:29 | PCM.HP.STD ---
Documented by User: Dr. Dionne Gonzalez MD 09/02/21 16:34 HPI - General General Date of Admission: 09/02/21 Date of Service: 09/02/21 Chief Complaint: Cough, dyspnea, fever. HPI Narrative With serial recent admissions with recurrent cough, fever, chills, body aches starting the evening prior, weak, fell out of bed this AM prompting repeat ED evaluation. Work-up in the ED included T1 100.7, heart rate 101, BP 148/88, respiratory rate 19, 96 to 98% on 3 L nasal cannula, normally using 2 L at home, CBC with WBC 15.7, hemoglobin 10.9, platelet 174 with left shift, CMP with carbon oxide 35, glucose 145, lactic acid pending upon evaluation, urinalysis not marked appearing, chest x-ray with persistent bilateral infiltrates, rapid Covid antigen negative, blood culture x2 pending per ED. In the ED patient ministered IV Zosyn as well as normal saline. [facility] Medical History (Updated 09/02/21 @ 16:[address] Crystal Luna, DO) Amputation of one or more toes Anxiety Anxiety and depression Bronchiectasis with (acute) exacerbation CAD (coronary artery disease) Chest pain Congestive heart failure (CHF) COPD (chronic obstructive pulmonary disease) CPAP (continuous positive airway pressure) dependence Depression Diabetes GERD (gastroesophageal reflux disease) Hypertension Kidney stones Kidney stones Migraines Mood disorder Myocardial infarct Non-smoker On home oxygen therapy PAD (peripheral artery disease) Pneumonia Pulmonary nodule, left Sepsis Severe sepsis Sleep apnea Vision loss of left eye Home Medications acetaminophen 1,000 mg PO QHS PRN PRN 02/11/21 [History Last Taken 09/01/21] alprazolam 0.5 mg PO BID 02/11/21 [History Last Taken 09/02/21] atorvastatin 80 mg PO QHS 02/11/21 [History Last Taken 09/01/21] carvedilol 25 mg PO BID 02/11/21 [History Last Taken 09/02/21] clopidogrel 75 mg PO DAILY 02/11/21 [History Last Taken 09/02/21] finasteride 5 mg PO DAILY 02/11/21 [History Last Taken 09/02/21] fluoxetine 40 mg PO DAILY 02/11/21 [History Last Taken 09/02/21] insulin detemir U-100 28 unit SQ QHS 02/11/21 [History Last Taken 09/01/21] insulin lispro See Protocol SQ TIDCM 02/11/21 [History Last Taken 09/02/21] isosorbide mononitrate 30 mg PO DAILY 02/11/21 [History Last Taken 09/02/21] nitroglycerin 0.4 mg SL Q5M PRN 02/11/21 [History Last Taken 02/08/21] pantoprazole 20 mg PO DAILY 02/11/21 [History Last Taken 09/02/21] pregabalin [Lyrica] 75 mg PO BID 05/13/21 [History Last Taken 09/02/21] trazodone 100 mg PO QHS #0 tab 07/02/21 [Rx Last Taken 09/01/21] exenatide microspheres 2 mg SUBCUT TH 07/10/21 [History Last Taken 08/28/21] albuterol sulfate 90 mcg/actuation aerosol inhaler 2 puff INHALATION Q4H PRN #8.5 g 07/24/21 [Rx Last Taken 09/01/21] clotrimazole 1 applic TOPICAL BID PRN 08/06/21 [History Last Taken Unknown] nystatin [Nyamyc] 1 applic TOPICAL BID PRN 08/06/21 [History Last Taken Unknown] buspirone 7.5 mg tablet 7.5 mg PO TID tab 08/15/21 [History Last Taken 09/02/21] fluoxetine 20 mg capsule 20 mg PO DAILY cap 08/15/21 [History Last Taken 09/02/21] losartan 50 mg tablet 50 mg PO DAILY #90 tab 08/15/21 [Rx Last Taken 09/02/21] furosemide 20 mg PO DAILY 09/02/21 [History Last Taken 09/02/21] spironolactone 12.5 mg PO DAILY 09/02/21 [History Last Taken 09/02/21] Allergy/AdvReac Type Severity Reaction Status Date / Time allopurinol AdvReac Vomiting Verified 09/02/21 14:51 Influenza Virus Vaccines AdvReac Vomiting Verified 09/02/21 14:51 pneumococcal vaccine AdvReac Vomiting Verified 09/02/21 14:51 Family History Mother Diabetes Heart disease CHF Father Heart disease [place]/CAD Myocardial infarction Surgical History H/O lithotripsy History of ankle surgery History of coronary artery stent placement Hx of toe surgery S/P peripheral artery angioplasty with stent placement S/P thyroid surgery Social History household members: spouse housing: apartment Smoking Status: Never smoker alcohol intake: never substance use type: does not use Vital Signs Vital Signs Vital Signs: 09/02/21 14:46 09/02/21 14:50 Temperature 100.7 F H 100.7 F H Temperature Source Oral Oral Pulse Rate 101 H 101 H Respiratory Rate 27 H 19 H Respiratory Effort Short of Breath Respiratory Pattern Normal Blood Pressure 148/88 H Blood Pressure Mean 108 Pulse Ox 96 98 Oxygen Delivery Method Nasal Cannula Nasal Cannula Oxygen Flow Rate (L/min) 3 3 Weight Weight: 269 lb 10.005 oz Body Mass Index (BMI) 38.7 Results Lab / Micro Data Result Diagrams: 09/02/21 15:50 09/02/21 15:50 Labs: Laboratory Results - last 24 hr 09/02/21 15:47: Urine Color Yellow, Urine Clarity Clear, Urine pH 8.0, Ur Specific [place] 1.015, Urine Protein 15 H, Urine Glucose (UA) Normal, Urine Ketones Negative, Urine Occult Blood Negative, Urine Nitrite Negative, Urine Bilirubin Negative, Urine Urobilinogen Normal, Ur Leukocyte Esterase Negative, Urine RBC 0 SEEN, Urine WBC 0 SEEN, Ur Squamous Epith Cells 0-5 SEEN, Urine Bacteria 0 SEEN, Urine Mucus 0 SEEN 09/02/21 15:50: WBC 15.7 H, RBC 3.82 L, Hgb 10.9 L, Hct 34.4 L, MCV 90.1, MCH 28.5, MCHC 31.7 L, RDW Std Deviation 42.2, RDW Coeff of [place] 12.8, Plt Count 174, MPV 11.0, Immature Gran % (Auto) 0.400, Neut % (Auto) 86.9 H, Lymph % (Auto) 6.5 L, [place] % (Auto) 5.6, Eos % (Auto) 0.4, Baso % (Auto) 0.2, Absolute Neuts (auto) 13.6 H, Absolute Lymphs (auto) 1.02, Nucleated RBC % 0 09/02/21 15:50: Sodium 143, Potassium 3.9, Chloride 103, Carbon Dioxide 35.0 H, Anion Gap 5, BUN 18, Creatinine 1.28, Estim Creat Clear Calc 61.78, Est GFR (MDRD) Af Amer 73, Est GFR (MDRD) Non-Af 60, BUN/Creatinine Ratio 14.1, Glucose 145 H, Calcium 8.9, Total Bilirubin 0.50, AST 18, ALT 17, Alkaline Phosphatase 101, Total Protein 6.9, Albumin 3.0 L, Globulin 3.9, Albumin/Globulin Ratio 0.8 L Micro: Microbiology 09/02/21 15:10 Nasal Secretion SARS-CoV-2 Antigen (Rapid) - Final Radiology Impression Chest X-Ray 09/02/21 15:50 IMPRESSION: Persistent bilateral infiltrates. Electronically Signed: Bryan Tam MD at 16:14 EDT , Service support , Documented by User: PAUL Vazquez 09/02/21 17:33 HPI - General General Date of Admission: 09/02/21 [facility] Medical History (Updated 09/02/21 @ 16:[address] Crystal Luna, DO) Amputation of one or more toes Anxiety Anxiety and depression Bronchiectasis with (acute) exacerbation CAD (coronary artery disease) Chest pain Congestive heart failure (CHF) COPD (chronic obstructive pulmonary disease) CPAP (continuous positive airway pressure) dependence Depression Diabetes GERD (gastroesophageal reflux disease) Hypertension Kidney stones Kidney stones Migraines Mood disorder Myocardial infarct Non-smoker On home oxygen therapy PAD (peripheral artery disease) Pneumonia Pulmonary nodule, left Sepsis Severe sepsis Sleep apnea Vision loss of left eye Home Medications acetaminophen 1,000 mg PO QHS PRN PRN 02/11/21 [History Last Taken 09/01/21] alprazolam 0.5 mg PO BID 02/11/21 [History Last Taken 09/02/21] atorvastatin 80 mg PO QHS 02/11/21 [History Last Taken 09/01/21] carvedilol 25 mg PO BID 02/11/21 [History Last Taken 09/02/21] clopidogrel 75 mg PO DAILY 02/11/21 [History Last Taken 09/02/21] finasteride 5 mg PO DAILY 02/11/21 [History Last Taken 09/02/21] fluoxetine 40 mg PO DAILY 02/11/21 [History Last Taken 09/02/21] insulin detemir U-100 28 unit SQ QHS 02/11/21 [History Last Taken 09/01/21] insulin lispro See Protocol SQ TIDCM 02/11/21 [History Last Taken 09/02/21] isosorbide mononitrate 30 mg PO DAILY 02/11/21 [History Last Taken 09/02/21] nitroglycerin 0.4 mg SL Q5M PRN 02/11/21 [History Last Taken 02/08/21] pantoprazole 20 mg PO DAILY 02/11/21 [History Last Taken 09/02/21] pregabalin [Lyrica] 75 mg PO BID 05/13/21 [History Last Taken 09/02/21] trazodone 100 mg PO QHS #0 tab 07/02/21 [Rx Last Taken 09/01/21] exenatide microspheres 2 mg SUBCUT TH 07/10/21 [History Last Taken 08/28/21] albuterol sulfate 90 mcg/actuation aerosol inhaler 2 puff INHALATION Q4H PRN #8.5 g 07/24/21 [Rx Last Taken 09/01/21] clotrimazole 1 applic TOPICAL BID PRN 08/06/21 [History Last Taken Unknown] nystatin [Nyamyc] 1 applic TOPICAL BID PRN 08/06/21 [History Last Taken Unknown] buspirone 7.5 mg tablet 7.5 mg PO TID tab 08/15/21 [History Last Taken 09/02/21] fluoxetine 20 mg capsule 20 mg PO DAILY cap 08/15/21 [History Last Taken 09/02/21] losartan 50 mg tablet 50 mg PO DAILY #90 tab 08/15/21 [Rx Last Taken 09/02/21] furosemide 20 mg PO DAILY 09/02/21 [History Last Taken 09/02/21] spironolactone 12.5 mg PO DAILY 09/02/21 [History Last Taken 09/02/21] Allergy/AdvReac Type Severity Reaction Status Date / Time allopurinol AdvReac Vomiting Verified 09/02/21 14:51 Influenza Virus Vaccines AdvReac Vomiting Verified 09/02/21 14:51 pneumococcal vaccine AdvReac Vomiting Verified 09/02/21 14:51 Family History Mother Diabetes Heart disease CHF Father Heart disease [place]/CAD Myocardial infarction Surgical History H/O lithotripsy History of ankle surgery History of coronary artery stent placement Hx of toe surgery S/P peripheral artery angioplasty with stent placement S/P thyroid surgery Social History household members: spouse housing: apartment Smoking Status: Never smoker alcohol intake: never substance use type: does not use Results Lab / Micro Data Result Diagrams: 09/02/21 15:50 09/02/21 15:50
--- NOTE | 2021-09-02 16:31 | NURSING ---
DR BANEGAS FOR DR GARCIA
[2021-09-02 16:34] LABS: Lactic Acid 1.5 mmol/L (0.4-1.9)
--- NOTE | 2021-09-02 16:44 | NURSING ---
MED SURG WHITE ASPIRATION PNEUMONIA, RESP FAILURE
--- NOTE | 2021-09-02 17:39 | PCM.HP.STD ---
Documented by User: PAUL Vazquez 09/02/21 17:56 HPI - General General Date of Admission: 09/02/21 Date of Service: 09/02/21 Chief Complaint: Cough, dyspnea, fever. HPI Narrative REA HANNA, is a 61 M who presents with complaints of cough, fever, increase shortness of breath. Per patient's patient has been diagnosed with pneumonia 6 times since May and was most recently admitted approximately 2 weeks ago. Patient has been diagnosed with aspiration pneumonia however patient has refused to undergo additional testing including endoscopy. [facility] Medical History Amputation of one or more toes Anxiety Anxiety and depression Bronchiectasis with (acute) exacerbation CAD (coronary artery disease) Chest pain Congestive heart failure (CHF) COPD (chronic obstructive pulmonary disease) CPAP (continuous positive airway pressure) dependence Depression Diabetes GERD (gastroesophageal reflux disease) Hypertension Kidney stones Kidney stones Migraines Mood disorder Myocardial infarct Non-smoker On home oxygen therapy PAD (peripheral artery disease) Pneumonia Pulmonary nodule, left Sepsis Severe sepsis Sleep apnea Vision loss of left eye Home Medications acetaminophen 1,000 mg PO QHS PRN PRN 02/11/21 [History Last Taken 09/01/21] alprazolam 0.5 mg PO BID 02/11/21 [History Last Taken 09/02/21] atorvastatin 80 mg PO QHS 02/11/21 [History Last Taken 09/01/21] carvedilol 25 mg PO BID 02/11/21 [History Last Taken 09/02/21] clopidogrel 75 mg PO DAILY 02/11/21 [History Last Taken 09/02/21] finasteride 5 mg PO DAILY 02/11/21 [History Last Taken 09/02/21] fluoxetine 40 mg PO DAILY 02/11/21 [History Last Taken 09/02/21] insulin detemir U-100 28 unit SQ QHS 02/11/21 [History Last Taken 09/01/21] insulin lispro See Protocol SQ TIDCM 02/11/21 [History Last Taken 09/02/21] isosorbide mononitrate 30 mg PO DAILY 02/11/21 [History Last Taken 09/02/21] nitroglycerin 0.4 mg SL Q5M PRN 02/11/21 [History Last Taken 02/08/21] pantoprazole 20 mg PO DAILY 02/11/21 [History Last Taken 09/02/21] pregabalin [Lyrica] 75 mg PO BID 05/13/21 [History Last Taken 09/02/21] trazodone 100 mg PO QHS #0 tab 07/02/21 [Rx Last Taken 09/01/21] exenatide microspheres 2 mg SUBCUT TH 07/10/21 [History Last Taken 08/28/21] albuterol sulfate 90 mcg/actuation aerosol inhaler 2 puff INHALATION Q4H PRN #8.5 g 07/24/21 [Rx Last Taken 09/01/21] clotrimazole 1 applic TOPICAL BID PRN 08/06/21 [History Last Taken Unknown] nystatin [Nyamyc] 1 applic TOPICAL BID PRN 08/06/21 [History Last Taken Unknown] buspirone 7.5 mg tablet 7.5 mg PO TID tab 08/15/21 [History Last Taken 09/02/21] fluoxetine 20 mg capsule 20 mg PO DAILY cap 08/15/21 [History Last Taken 09/02/21] losartan 50 mg tablet 50 mg PO DAILY #90 tab 08/15/21 [Rx Last Taken 09/02/21] furosemide 20 mg PO DAILY 09/02/21 [History Last Taken 09/02/21] spironolactone 12.5 mg PO DAILY 09/02/21 [History Last Taken 09/02/21] Allergy/AdvReac Type Severity Reaction Status Date / Time allopurinol AdvReac Vomiting Verified 09/02/21 14:51 Influenza Virus Vaccines AdvReac Vomiting Verified 09/02/21 14:51 pneumococcal vaccine AdvReac Vomiting Verified 09/02/21 14:51 Family History Mother Diabetes Heart disease CHF Father Heart disease MA/CAD Myocardial infarction Surgical History H/O lithotripsy History of ankle surgery History of coronary artery stent placement Hx of toe surgery S/P peripheral artery angioplasty with stent placement S/P thyroid surgery Social History household members: spouse housing: apartment Smoking Status: Never smoker alcohol intake: never substance use type: does not use ROS Constitutional Constitutional: Reports chills, fever(s) and malaise; Denies anorexia, fatigue or weakness Cardiovascular Cardiovascular: Denies chest pain, edema, palpitations or syncope Respiratory/Chest Respiratory/Chest: Reports cough, shortness of breath at rest, shortness of breath with exertion and wheezing Gastrointestinal Gastrointestinal: Denies abdominal pain, constipation, diarrhea, nausea or vomiting Genitourinary Genitourinary: Denies dysuria Musculoskeletal Musculoskeletal: Denies back pain, extremity pain, joint pain or joint stiffness Integumentary Integumentary: Denies dry skin Neurologic Neurologic: Denies abnormal gait, abnormal speech, confusion or dizziness Psychiatric Psychiatric: Denies anxiety or depression Endocrine Endocrinology: Denies change in body appearance Hematologic/Lymphatic Hematologic/Lymphatic: Denies anemia, easy bleeding or easy bruising Vital Signs Vital Signs Vital Signs: 09/02/21 14:46 09/02/21 14:50 09/02/21 16:51 Temperature 100.7 F H 100.7 F H 99.9 F H Temperature Source Oral Oral Temporal Pulse Rate 101 H 101 H 102 H Respiratory Rate 27 H 19 H 15 Respiratory Effort Short of Breath Respiratory Pattern Normal Blood Pressure 148/88 H 138/76 H Blood Pressure Mean 108 96 Pulse Ox 96 98 98 Oxygen Delivery Method Nasal Cannula Nasal Cannula Nasal Cannula Oxygen Flow Rate (L/min) 3 3 3 Weight Weight: 269 lb 10.005 oz Body Mass Index (BMI) 38.7 Physical Exam Const alert, oriented x3 and no apparent distress General Appearance: cooperative HEENT normocephalic and head/scalp atraumatic Eyes conjunctivae normal and no scleral icterus Neck supple General: trachea midline Resp normal respiratory effort, normal air movement and clear to auscultation bilaterally Auscultation: wheezes expiratory wheezes, left lower and right lower Cardio regular rate, regular rhythm, S1 normal heart sound, S2 normal heart sound and peripheral pulses 2+ throughout GI normal to inspection, nondistended, normoactive bowel sounds, soft to palpation and non-tender Extremity normal capillary refill and no clubbing, cyanosis or edema General Extremity: no tenderness to palpation of joints or extremities Skin General Skin Exam: no breakdown and turgor normal Lesions: no lesions Rashes: no rashes Neuro no focal motor deficits and no sensory deficits noted Speech: speech normal Motor Exam: Negative for general weakness Psych thought process normal, cooperative and affect normal Appearance: appropriate Results Lab / Micro Data Result Diagrams: 09/02/21 15:50 09/02/21 15:50 Labs: Laboratory Results - last 24 hr 09/02/21 15:47: Urine Color Yellow, Urine Clarity Clear, Urine pH 8.0, Ur Specific [place] 1.015, Urine Protein 15 H, Urine Glucose (UA) Normal, Urine Ketones Negative, Urine Occult Blood Negative, Urine Nitrite Negative, Urine Bilirubin Negative, Urine Urobilinogen Normal, Ur Leukocyte Esterase Negative, Urine RBC 0 SEEN, Urine WBC 0 SEEN, Ur Squamous Epith Cells 0-5 SEEN, Urine Bacteria 0 SEEN, Urine Mucus 0 SEEN 09/02/21 15:50: WBC 15.7 H, RBC 3.82 L, Hgb 10.9 L, Hct 34.4 L, MCV 90.1, MCH 28.5, MCHC 31.7 L, RDW Std Deviation 42.2, RDW Coeff of James 12.8, Plt Count 174, MPV 11.0, Immature Gran % (Auto) 0.400, Neut % (Auto) 86.9 H, Lymph % (Auto) 6.5 L, [place] % (Auto) 5.6, Eos % (Auto) 0.4, Baso % (Auto) 0.2, Absolute Neuts (auto) 13.6 H, Absolute Lymphs (auto) 1.02, Nucleated RBC % 0 09/02/21 15:50: Sodium 143, Potassium 3.9, Chloride 103, Carbon Dioxide 35.0 H, Anion Gap 5, BUN 18, Creatinine 1.28, Estim Creat Clear Calc 61.78, Est GFR (MDRD) Af Amer 73, Est GFR (MDRD) Non-Af 60, BUN/Creatinine Ratio 14.1, Glucose 145 H, Calcium 8.9, Total Bilirubin 0.50, AST 18, ALT 17, Alkaline Phosphatase 101, Total Protein 6.9, Albumin 3.0 L, Globulin 3.9, Albumin/Globulin Ratio 0.8 L 09/02/21 15:50: Lactic Acid 1.5 Micro: Microbiology 09/02/21 15:10 Nasal Secretion SARS-CoV-2 Antigen (Rapid) - Final Radiology Impression Chest X-Ray 09/02/21 15:50 IMPRESSION: Persistent bilateral infiltrates. Electronically Signed: Bryan Tam MD at 16:14 EDT , Service support , Assessment & Plan Assessment/Plan (1) Bilateral pneumonia: QUALIFIERS: Aspiration pneumonia type: unspecified Lung location: lower lobe of lung Pneumonia type: aspiration pneumonia Qualified Code(s): J69.0 - Pneumonitis due to inhalation of food and vomit PLAN: 1. Bilateral pneumonia likely secondary to aspiration -Admit to [facility] [place] -Continue IV Zosyn and vancomycin -Covid antigen negative, Covid PCR pending. If patient Covid PCR comes back positive patient will be candidate to be started on remdesivir and Decadron. Patient has been fully vaccinated against COVID-19 -Urine strep and Legionella ordered along with MRSA PCR -CBC, CMP ordered daily -Respiratory panel ordered -Blood cultures pending -Encourage incentive spirometry -CPAP at at bedtime -Oxygen per protocol, home O2 use 2 L nasal cannula, patient currently on 3 L -Aspiration precautions ordered -PT and OT to eval and treat We will continue all home medications related patient chronic diseases including hypertension, hyperlipidemia, coronary artery disease and diabetes. DVT prophylaxis-subcu Lovenox This patient was seen by PAUL Vazquez under the supervision of Dr. Gonzalez. Documented by User: Dr. Dionne Gonzalez MD 09/02/21 19:32 HPI - General General Date of Admission: 09/02/21 [facility] Medical History Amputation of one or more toes Anxiety Anxiety and depression Bronchiectasis with (acute) exacerbation CAD (coronary artery disease) Chest pain Congestive heart failure (CHF) COPD (chronic obstructive pulmonary disease) CPAP (continuous positive airway pressure) dependence Depression Diabetes GERD (gastroesophageal reflux disease) Hypertension Kidney stones Kidney stones Migraines Mood disorder Myocardial infarct Non-smoker On home oxygen therapy PAD (peripheral artery disease) Pneumonia Pulmonary nodule, left Sepsis Severe sepsis Sleep apnea Vision loss of left eye Home Medications acetaminophen 1,000 mg PO QHS PRN PRN 02/11/21 [History Last Taken 09/01/21] alprazolam 0.5 mg PO BID 02/11/21 [History Last Taken 09/02/21] atorvastatin 80 mg PO QHS 02/11/21 [History Last Taken 09/01/21] carvedilol 25 mg PO BID 02/11/21 [History Last Taken 09/02/21] clopidogrel 75 mg PO DAILY 02/11/21 [History Last Taken 09/02/21] finasteride 5 mg PO DAILY 02/11/21 [History Last Taken 09/02/21] fluoxetine 40 mg PO DAILY 02/11/21 [History Last Taken 09/02/21] insulin detemir U-100 28 unit SQ QHS 02/11/21 [History Last Taken 09/01/21] insulin lispro See Protocol SQ TIDCM 02/11/21 [History Last Taken 09/02/21] isosorbide mononitrate 30 mg PO DAILY 02/11/21 [History Last Taken 09/02/21] nitroglycerin 0.4 mg SL Q5M PRN 02/11/21 [History Last Taken 02/08/21] pantoprazole 20 mg PO DAILY 02/11/21 [History Last Taken 09/02/21] pregabalin [Lyrica] 75 mg PO BID 05/13/21 [History Last Taken 09/02/21] trazodone 100 mg PO QHS #0 tab 07/02/21 [Rx Last Taken 09/01/21] exenatide microspheres 2 mg SUBCUT TH 07/10/21 [History Last Taken 08/28/21] albuterol sulfate 90 mcg/actuation aerosol inhaler 2 puff INHALATION Q4H PRN #8.5 g 07/24/21 [Rx Last Taken 09/01/21] clotrimazole 1 applic TOPICAL BID PRN 08/06/21 [History Last Taken Unknown] nystatin [Nyamyc] 1 applic TOPICAL BID PRN 08/06/21 [History Last Taken Unknown] buspirone 7.5 mg tablet 7.5 mg PO TID tab 08/15/21 [History Last Taken 09/02/21] fluoxetine 20 mg capsule 20 mg PO DAILY cap 08/15/21 [History Last Taken 09/02/21] losartan 50 mg tablet 50 mg PO DAILY #90 tab 08/15/21 [Rx Last Taken 09/02/21] furosemide 20 mg PO DAILY 09/02/21 [History Last Taken 09/02/21] spironolactone 12.5 mg PO DAILY 09/02/21 [History Last Taken 09/02/21] Allergy/AdvReac Type Severity Reaction Status Date / Time allopurinol AdvReac Vomiting Verified 09/02/21 14:51 Influenza Virus Vaccines AdvReac Vomiting Verified 09/02/21 14:51 pneumococcal vaccine AdvReac Vomiting Verified 09/02/21 14:51 Family History Mother Diabetes Heart disease CHF Father Heart disease MA/CAD Myocardial infarction Surgical History H/O lithotripsy History of ankle surgery History of coronary artery stent placement Hx of toe surgery S/P peripheral artery angioplasty with stent placement S/P thyroid surgery Social History household members: spouse housing: apartment Smoking Status: Never smoker alcohol intake: never substance use type: does not use Results Lab / Micro Data Result Diagrams: 09/02/21 15:50 09/02/21 15:50
--- NOTE | 2021-09-02 17:55 | CT_ITS ---
STUDY: CT CHEST WITHOUT CONTRAST REASON FOR EXAM: Male, 61 years old. Recurrent PNA -- PLEASE obtain high resolution. RADIATION DOSAGE (If Supplied By Facility): CTDIvol = ( 20.14 ) mGy, DLP = ( 767.67 ) mGycm TECHNIQUE: Transaxial imaging was performed without the administration of intravenous contrast material. Multiplanar coronal and sagittal images were reformatted. Individualized dose optimization techniques were used for this CT. COMPARISON: None. FINDINGS: There is elevation of the right hemidiaphragm. There is right lower lobe consolidation suggestive of atelectasis versus residual infiltrates. There are subtle foci of the bilateral upper lobe coarse opacities which may indicate sequela of multifocal pneumonia. There is severe atelectasis involving the right middle lobe. There is no demonstrated pleural abnormality. Normal cardiac size with coronary artery calcifications. Normal mediastinum. Normal hilar regions. Normal unenhanced pulmonary arteries. Mild atherosclerotic disease throughout the aortic arch otherwise normal aorta with no aneurysm. There are multi-level degenerative changes of the thoracic spine. There is no demonstrated abnormality of the visualized upper abdomen. CT/Chest without Contrast IMPRESSION: Right lower lobe consolidation with multiple foci of biapical coarse opacities concerning for multifocal multilevel residual pneumonitis. Atelectasis/collapse of the right middle lobe. No pleural effusions or pneumothorax. Electronically Signed: Gabi Calderon MD at 3:37 EDT , Service support ,
--- NOTE | 2021-09-02 18:42 | NURSING ---
@ 1830, pt to CT scan via bed
[2021-09-02] MEDS: Ipratropium/Albuterol Sulfate 3 ML AMPUL.NEB INHALATION (19:16)
--- NOTE | 2021-09-02 19:19 | CPS ---
has cpap machine at home that he doesn' use
[2021-09-02] MEDS: 0.9% Normal Saline 1,000 ML 100 ML IV (20:15)
--- NOTE | 2021-09-02 21:17 | PCM.RX.CS ---
Consult Pharmacy has been consulted to manage selected antiobiotic: Vancomycin Type of Consult: New start Labs: Sodium 143 mmol/L (136-145) 09/02/21 15:50 Potassium 3.9 mmol/L (3.5-5.1) 09/02/21 15:50 Chloride 103 mmol/L (98-107) 09/02/21 15:50 Carbon Dioxide 35.0 mmol/L (21.0-32.0) H 09/02/21 15:50 Anion Gap 5 (5-15) 09/02/21 15:50 BUN 18 mg/dL (7-18) 09/02/21 15:50 Creatinine 1.28 mg/dL (0.70-1.30) 09/02/21 15:50 Est GFR (MDRD) Af Amer 73 mL/min (>60) 09/02/21 15:50 Est GFR (MDRD) Non-Af 60 mL/min (>60) 09/02/21 15:50 BUN/Creatinine Ratio 14.1 RATIO (10-20) 09/02/21 15:50 Glucose 145 mg/dL (74-106) H 09/02/21 15:50 Microbiology: Microbiology 09/02/21 15:45 Mucosa - Nasopharyngeal Respiratory Panel (PCR) - Final 09/02/21 15:10 Nasal Secretion SARS-CoV-2 Antigen (Rapid) - Final Goal Trough: 15-20 mcg/mL Pharmacy Plan for Drug Dosing: NEW START IV VANCOMYCIN Consulting Physician: Carlos Indication: Goal Trough: 15-20 SrCr: 1.28 CrCl: 78 mls/min (based on an Adjusted Body weight of 92kg) Comments: pt to receive a 2000mg (25mg/kg) loading dose on 09/02/21 Vancomcyin Dose: based on pts weight and renal function, recommend an initial dose of 1250mg q8h starting 09/03/21 at 0500. trough before the 4th total dose Pending Level: 09/03/21 at 2029 Pharmacy Service will continue to monitor and adjust dosing as required. Follow-Up Labs: Trough Vancomycin - 09/03/21 at 2030
[2021-09-02] MEDS: Atorvastatin Calcium 80 MG Tablet PO (22:20)
[2021-09-02] MEDS: traZODone 100 MG Tablet PO (22:20)
[2021-09-02] MEDS: busPIRone 5 MG Tablet PO (22:20)
[2021-09-02] MEDS: Carvedilol 25 MG Tablet PO (22:21)
[2021-09-02] MEDS: ALPRAZolam 0.5 MG Tablet PO (22:21)
[2021-09-02] MEDS: Pregabalin 75 MG Capsule PO (22:21)
[2021-09-02 23:46] LABS: Bedside Glucose 125 mg/dL (70-110)
[2021-09-03] VITALS (10 sets, daily range): BP systolic 106–161; BP diastolic 59–98; PULSE 56–81; RESP 16–28; TEMP 36.4–37.2; O2SAT 97–99
[2021-09-03] MEDS: 0.9% Normal Saline 1,000 ML 100 ML IV ×2 (06:27→20:25)
[2021-09-03] MEDS: busPIRone 5 MG Tablet PO ×3 (06:31→22:19)
[2021-09-03 06:55] LABS: Bedside Glucose 124 mg/dL (70-110)
[2021-09-03 07:29] LABS: Absolute Lymphocyte Count 1.07 X10^3/uL (0.83-4.51); Absolute Neutrophil Count 10.2 X10^3/uL (2.0-7.7); Basophil# 0.04 X10^3/uL; Basophil% 0.3 % (0-1); Eosinophil# 0.09 X10^3/uL; Eosinophils% 0.7 % (0-5); Hematocrit 33.6 % (40-54); Hemoglobin 10.5 g/dL (13.0-16.5); Lymphocyte # 1.07 X10^3/ul (0.83-4.51); Lymphocyte % 8.6 % (19-41); Mean Corp Hgb Conc 31.3 g/dL (32-36); Mean Corpuscular Hgb 28.4 pg (27.0-32.0); Mean Corpuscular Volume 90.8 fL (80-94); Mean Platelet Vol. 11.4 fl (6.2-12.0); Monocyte# 1.02 X10^3/uL; Monocyte% 8.2 % (0-10); NRBC Flagged by Analyzer 0 % (0-5); Neutrophil # 10.16 X10^3/uL (2.7-7.7); Neutrophil % 81.6 % (47-70); Platelet Count 169 K/mm3 (150-450); RBC Distribution Width CV 12.8 % (11.6-14.6); RBC Distribution Width SD 42.4 fl (35.1-43.9); White Blood Count 12.5 K/mm3 (4.4-11.0)
--- NOTE | 2021-09-03 07:45 | PCM.PN.HOSP ---
Subjective Subjective Patient is a 61-year-old gentleman with underlying history of bronchiectasis with recent admissions for recurrent pneumonia who presented with shortness of breath. An assessment of pneumonia secondary to suspected aspiration made admitted to regular nursing floor for further management Objective Data Objective Data Vital Signs: Vital Signs Temp Pulse Resp BP Pulse Ox 98.3 F 71 18 153/98 H 99 09/03/21 04:52 09/03/21 04:52 09/03/21 04:52 09/03/21 04:52 09/03/21 04:52 Oxygen Flow Rate (L/min) 2 Oxygen Delivery Method Nasal Cannula Weight: 120.5 kg Body Mass Index (BMI) 38.3 Intake & Output: Intake and Output for Last 24 Hours 09/01/21 09/02/21 09/03/21 23:59 23:59 23:59 Intake Total 1640 / 1640 1325 / 1325 Output Total 200 / 200 500 / 500 Balance 1440 / 1440 825 / 825 Lab / Micro Data Result Diagrams: 09/03/21 06:44 09/03/21 06:44 Labs: Laboratory Results - last 24 hr 09/02/21 15:45: COVID-19 (RAFIQ) Not Detected 09/02/21 15:47: Urine Color Yellow, Urine Clarity Clear, Urine pH 8.0, Ur Specific [place] 1.015, Urine Protein 15 H, Urine Glucose (UA) Normal, Urine Ketones Negative, Urine Occult Blood Negative, Urine Nitrite Negative, Urine Bilirubin Negative, Urine Urobilinogen Normal, Ur Leukocyte Esterase Negative, Urine RBC 0 SEEN, Urine WBC 0 SEEN, Ur Squamous Epith Cells 0-5 SEEN, Urine Bacteria 0 SEEN, Urine Mucus 0 SEEN 09/02/21 15:50: WBC 15.7 H, RBC 3.82 L, Hgb 10.9 L, Hct 34.4 L, MCV 90.1, MCH 28.5, MCHC 31.7 L, RDW Std Deviation 42.2, RDW Coeff of James 12.8, Plt Count 174, MPV 11.0, Immature Gran % (Auto) 0.400, Neut % (Auto) 86.9 H, Lymph % (Auto) 6.5 L, [place] % (Auto) 5.6, Eos % (Auto) 0.4, Baso % (Auto) 0.2, Absolute Neuts (auto) 13.6 H, Absolute Lymphs (auto) 1.02, Nucleated RBC % 0 09/02/21 15:50: Sodium 143, Potassium 3.9, Chloride 103, Carbon Dioxide 35.0 H, Anion Gap 5, BUN 18, Creatinine 1.28, Estim Creat Clear Calc 61.78, Est GFR (MDRD) Af Amer 73, Est GFR (MDRD) Non-Af 60, BUN/Creatinine Ratio 14.1, Glucose 145 H, Calcium 8.9, Total Bilirubin 0.50, AST 18, ALT 17, Alkaline Phosphatase 101, Total Protein 6.9, Albumin 3.0 L, Globulin 3.9, Albumin/Globulin Ratio 0.8 L 09/02/21 15:50: Lactic Acid 1.5 09/02/21 23:42: POC Glucose 125 H 09/03/21 06:31: POC Glucose 124 H 09/03/21 06:44: WBC 12.5 H, RBC 3.70 L, Hgb 10.5 L, Hct 33.6 L, MCV 90.8, MCH 28.4, MCHC 31.3 L, RDW Std Deviation 42.4, RDW Coeff of James 12.8, Plt Count 169, MPV 11.4, Immature Gran % (Auto) 0.600, Neut % (Auto) 81.6 H, Lymph % (Auto) 8.6 L, [place] % (Auto) 8.2, Eos % (Auto) 0.7, Baso % (Auto) 0.3, Absolute Neuts (auto) 10.2 H, Absolute Lymphs (auto) 1.07, Nucleated RBC % 0 Micro: Microbiology 09/03/21 02:09 Urine, Random Legionella Antigen - Final 09/03/21 02:09 Urine, Random Streptococcus pneumoniae Antigen (M - Final 09/02/21 15:45 Mucosa - Nasopharyngeal Respiratory Panel (PCR) - Final 09/02/21 15:10 Nasal Secretion SARS-CoV-2 Antigen (Rapid) - Final Radiography Diagnostic Testing: Radiology Impression Chest X-Ray 09/02/21 15:50 IMPRESSION: Persistent bilateral infiltrates. Electronically Signed: Bryan Tam MD at 16:14 EDT , Service support , Chest CT 09/02/21 17:55 IMPRESSION: Right lower lobe consolidation with multiple foci of biapical coarse opacities concerning for multifocal multilevel residual pneumonitis. Atelectasis/collapse of the right middle lobe. No pleural effusions or pneumothorax. Electronically Signed: Gabi Calderon MD at 3:37 EDT , Service support , Physical Exam Narrative GENERAL: cooperative HEENT: Atraumatic; EYES; Anicteric, Normal Conjunctiva NECK; supple, normal thyroid, RESPIRATORY: Diminished to auscultation CARDIOVASCULAR: Regular S1 S2, GI: soft, normoactive bowel sounds, : No Renal angle tenderness; EXTREMITIES: No edema, no clubbing, MUSCULOSKELETAL: no muscle waisting NEURO: Awake; no lateralizing signs. SKIN: No Rash PSYCH; Flat affect Assessment & Plan Assessment/Plan (1) Bilateral pneumonia: QUALIFIERS: Aspiration pneumonia type: unspecified Lung location: lower lobe of lung Pneumonia type: aspiration pneumonia Qualified Code(s): J69.0 - Pneumonitis due to inhalation of food and vomit PLAN: Patient is a 61-year-old gentleman with underlying history of bronchiectasis with recent admissions for recurrent pneumonia who presented with shortness of breath. An assessment of pneumonia secondary to suspected aspiration made admitted to regular nursing floor for further management 1. Recurrent pneumonia ?Due to combination of patient's underlying bronchiectasis as well as suspected silent aspiration. Patient was started on broad-spectrum antibiotic therapy. Consult placed to his speech therapy for possible swallow eval. Consult was also placed to GI for possible endoscopic evaluation for severe reflux. Patient was placed on supplemental oxygen titrated to keep saturation greater than 90. Chest x-ray obtained demonstrated Right lower lobe consolidation with multiple foci of biapical coarse opacities concerning for multifocal multilevel residual pneumonitis. Atelectasis/collapse of the right middle lobe. 2. Bronchiectasis ?Based on recent CTA obtained during one of patient's previous admissions. Currently being treated with incentive spirometer as well as Acapella and Mucinex 3. 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 Placed on long acting insulin, Accu-Cheks a.c. and at bedtime and covered with sliding scale insulin 4. Anemia - Secondary to chronic disorder monitoring H&H and transfuse if patient becomes symptomatic or hemoglobin falls below 7 5. Dyslipidemia -Patient is on statin therapy, continued at home dose 6. Obesity ?With BMI of 38.1, weight loss advised 7. Coronary artery disease ?Per history 8. Diabetic polyneuropathy ?Patient is on Lyrica continue 9. Chronic congestive heart failure with preserved ejection fraction ?Stable did continue patient diuretics (Lasix and Aldactone) 10. Obstructive sleep apnea ?CPAP at night 11. Depression with anxiety ?Patient is on fluoxetine did continue 12. GERD ?Patient is on PPI did continue 13. BPH ?Patient is on finasteride did continue 14. Hypertension - Blood pressure controlled, home medications continued with dose adjustment as needed 15. DVT prophylaxis - On enoxaparin Charges/Coding Visit Charges Inpatient E&M: 18835 [facility] L3
[2021-09-03] MEDS: Ipratropium/Albuterol Sulfate 3 ML AMPUL.NEB INHALATION ×2 (07:49→19:38)
[2021-09-03 08:11] LABS: ALB/GLOB Ratio 0.7 RATIO (0.9-2.4); AST(SGOT) 18 U/L (15-37); Alanine Aminotransfer ALT/SGPT 16 U/L (16-61); Albumin, Serum 2.6 g/dL (3.2-5.0); Alkaline Phosphatase 78 U/L (45-117); Anion Gap 4 (5-15); BUN 17 mg/dL (7-18); BUN/Creat Ratio 14.4 RATIO (10-20); Calcium,Total 8.5 mg/dL (8.5-10.1); Chloride 107 mmol/L (98-107); Creatinine, Serum 1.18 mg/dL (0.70-1.30); EST Glomerular Filtration Rate 66 mL/min (>60); Est Glom Filt Rate - Afr Amer 80 mL/min (>60); Estimated Creatinine Clearance 67.02 ml/min; Globulin 3.8 g/dL (2.2-4.2); Glucose 138 mg/dL (74-106); Potassium 3.8 mmol/L (3.5-5.1); Protein, Total 6.4 g/dL (6.4-8.2); Sodium Level 142 mmol/L (136-145)
[2021-09-03] MEDS: Pantoprazole Sodium 20 MG Tablet PO (10:08)
[2021-09-03] MEDS: Carvedilol 25 MG Tablet PO ×2 (10:08→22:19)
[2021-09-03] MEDS: Furosemide 40 MG Tablet PO (10:09)
[2021-09-03] MEDS: Finasteride 5 MG Tablet PO (10:09)
[2021-09-03] MEDS: Isosorbide Mononitrate 30 MG Tablet PO (10:09)
[2021-09-03] MEDS: Spironolactone 50 MG Tablet PO (10:09)
[2021-09-03] MEDS: Enoxaparin 40 MG/0.4 ML Syringe SC (10:09)
[2021-09-03] MEDS: Losartan Potassium 50 MG Tablet PO (10:09)
[2021-09-03] MEDS: Clopidogrel Bisulfate 75 MG Tablet PO (10:10)
[2021-09-03] MEDS: FLUoxetine 20 MG Capsule 40 MG PO (10:10)
[2021-09-03] MEDS: Pregabalin 75 MG Capsule PO ×2 (10:12→22:22)
[2021-09-03] MEDS: ALPRAZolam 0.5 MG Tablet PO ×2 (10:12→22:22)
[2021-09-03 11:15] LABS: Bedside Glucose 173 mg/dL (70-110)
[2021-09-03] MEDS: Insulin Lispro 100 UNIT/ML INSULN.PEN SC ×3 (13:07→22:20)
--- NOTE | 2021-09-03 15:54 | CASEMGMT ---
ALICE CM Readmission Note Previous Admission: 08/06/21-08/08/21 Diagnosis: sepsis DC Disposition: Home with C ZULMA, home O2. Current Admission Diagnosis: aspiration pna, acute resp insuff Pt presented to ER from home cough, fever and shortness of breath. Pt has had multiple admissions to the hospital, this being the 7th for the year. TC to Sylvia clinical hospice manager for [facility] at [facility]. She states there are not concerns of the patient being at home. States SN and PT are active with pt. He uses a walker or power scooter for ambulation, pt gets mod sob with exertion. Pt is using O2 as ordered. She states his sig other prepares the patient's medications and monitors that he take them. She states palliative care is not active with patient. Reports pt was having some depression issues at the end of July as he was taken off of his antidepressant d/t being on an atb. She states since he has restarted the medication, he has been fine. ST did a 1x eval in the home. ALICE [place] in to pt room. Pt and sig other at bedside. Pt states he will go back home, he just needs to figure out why he is aspirating. He states his son and sig other take care of him at home. States he has followed up with pulmonology since last admission and has an appt again in August. He states he is following his ordered diet and doing speech exercises. Pt also has followed up with . Discussed palliative care with patient and he states he has not called them back. He asked what the service was and was agreeable to a consult again. Pt seemed in good spirits, sig other reported no concerns at home. Pt states he does not feel that he needs the PT at home and may dc them soon. Pt screened with [facility] Palliative Care Screening Tool due to readmission and meets criteria, although order not received. DC PLAN: Home with ZULMA of [facility] RN and PT, pending other consults and tests.
[2021-09-03 16:56] LABS: Bedside Glucose 245 mg/dL (70-110)
[2021-09-03 17:57] LABS: M R Staph aureus DNA By PCR Negative (Negative); Probe Check PASS; Specimen Processing Control PASS
[2021-09-03 22:10] LABS: Bedside Glucose 213 mg/dL (70-110)
--- NOTE | 2021-09-03 22:11 | CON.PCM.GI_ITS ---
HPI Consult Data Date of Consult: 09/03/21 HPI Narrative HPI Narrative: REA HANNA, is a 61-year-old male, with a history as outlined below, who presented to the emergency department on August 06 with shortness of breath and hypoxemia. The patient has a known history of restrictive lung disease and chronic hypoxemic respiratory failure with a baseline 3 L/min oxygen requirement. The patient has a history of frequent hospitalizations, most recently in June 2021, which was felt to be secondary to aspiration pneumonia. Modified barium swallow at the beginning of June revealed evidence of silent aspiration. The patient did report that in the days leading up to his hospitalization he did experience several episodes of emesis following ingestion of food. Patient says that he has have a history of heartburn. He also admits to occasional esophageal dysphagia. He has never had an upper endoscopy he did spend shortness of breath. All other 16 review of systems are negative except those pertinent positive mentioned HPI. [facility] Medical History Amputation of one or more toes Anxiety Anxiety and depression Bronchiectasis with (acute) exacerbation CAD (coronary artery disease) Chest pain Congestive heart failure (CHF) COPD (chronic obstructive pulmonary disease) CPAP (continuous positive airway pressure) dependence Depression Diabetes GERD (gastroesophageal reflux disease) Hypertension Kidney stones Kidney stones Migraines Mood disorder Myocardial infarct Non-smoker On home oxygen therapy PAD (peripheral artery disease) Pneumonia Pulmonary nodule, left Sepsis Severe sepsis Sleep apnea Vision loss of left eye Home Medications acetaminophen 1,000 mg PO QHS PRN PRN 02/11/21 [History Last Taken 09/01/21] alprazolam 0.5 mg PO BID 02/11/21 [History Last Taken 09/02/21] atorvastatin 80 mg PO QHS 02/11/21 [History Last Taken 09/01/21] carvedilol 25 mg PO BID 02/11/21 [History Last Taken 09/02/21] clopidogrel 75 mg PO DAILY 02/11/21 [History Last Taken 09/02/21] finasteride 5 mg PO DAILY 02/11/21 [History Last Taken 09/02/21] fluoxetine 40 mg PO DAILY 02/11/21 [History Last Taken 09/02/21] insulin detemir U-100 28 unit SQ QHS 02/11/21 [History Last Taken 09/01/21] insulin lispro See Protocol SQ TIDCM 02/11/21 [History Last Taken 09/02/21] isosorbide mononitrate 30 mg PO DAILY 02/11/21 [History Last Taken 09/02/21] nitroglycerin 0.4 mg SL Q5M PRN 02/11/21 [History Last Taken 02/08/21] pantoprazole 20 mg PO DAILY 02/11/21 [History Last Taken 09/02/21] pregabalin [Lyrica] 75 mg PO BID 05/13/21 [History Last Taken 09/02/21] trazodone 100 mg PO QHS #0 tab 07/02/21 [Rx Last Taken 09/01/21] exenatide microspheres 2 mg SUBCUT TH 07/10/21 [History Last Taken 08/28/21] albuterol sulfate 90 mcg/actuation aerosol inhaler 2 puff INHALATION Q4H PRN #8.5 g 07/24/21 [Rx Last Taken 09/01/21] clotrimazole 1 applic TOPICAL BID PRN 08/06/21 [History Last Taken Unknown] nystatin [Nyamyc] 1 applic TOPICAL BID PRN 08/06/21 [History Last Taken Unknown] buspirone 7.5 mg tablet 7.5 mg PO TID tab 08/15/21 [History Last Taken 09/02/21] fluoxetine 20 mg capsule 20 mg PO DAILY cap 08/15/21 [History Last Taken 09/02/21] losartan 50 mg tablet 50 mg PO DAILY #90 tab 08/15/21 [Rx Last Taken 09/02/21] furosemide 20 mg PO DAILY 09/02/21 [History Last Taken 09/02/21] spironolactone 12.5 mg PO DAILY 09/02/21 [History Last Taken 09/02/21] Allergy/AdvReac Type Severity Reaction Status Date / Time allopurinol AdvReac Vomiting Verified 09/02/21 14:51 Influenza Virus Vaccines AdvReac Vomiting Verified 09/02/21 14:51 pneumococcal vaccine AdvReac Vomiting Verified 09/02/21 14:51 Family History Mother Diabetes Heart disease CHF Father Heart disease AK/CAD Myocardial infarction Surgical History H/O lithotripsy History of ankle surgery History of coronary artery stent placement Hx of toe surgery S/P peripheral artery angioplasty with stent placement S/P thyroid surgery Social History household members: spouse housing: apartment Smoking Status: Never smoker alcohol intake: never substance use type: does not use ROS Review of Systems ROS Unobtainable: other Constitutional Constitutional: Denies fatigue, fever(s), poor appetite, weight gain or weight loss ENT HEENT: Denies mouth lesions Cardiovascular Cardiovascular: Denies abdominal bloating, abdominal edema or abdominal pain Respiratory/Chest Respiratory/Chest: Denies change in mental status, change in phlegm color, chest congestion or chest tightness Gastrointestinal Gastrointestinal: Denies belching, bloating, change in bowel habits, change in stool character, chewing difficulty, coffee ground emesis, constipation, crampin g, diarrhea, dyspepsia, dysphagia, early satiety, excessive flatus, fecal incontinence, heartburn, hematemesis, hematochezia, hemorrhoids, loose stools, melena, nausea, odynophagia, rectal bleeding, tenesmus, vomiting or weight changes Genitourinary Genitourinary: Denies abdominal discomfort, burning urination or itching Musculoskeletal Musculoskeletal: Reports as per HPI; Denies muscle weakness or myalgias Integumentary Integumentary: Denies jaundice Neurologic Neurologic: Denies lack of coordination or weakness Psychiatric Psychiatric: Denies confusion, depression, memory loss, mood swings, paranoia or suicidal ideation Endocrine Endocrinology: Denies systems reviewed and no addt'l complaints, except as documented Hematologic/Lymphatic Hematologic/Lymphatic: Denies anemia, easy bleeding, easy bruising or lymphadenopathy Allergic/Immunologic Allergic/Immunologic: Denies systems reviewed and no addt'l complaints, except as documented Physical Exam Const alert General Appearance: cooperative Orientation / Consciousness: oriented to person HEENT hearing grossly normal bilaterally Head and Scalp: normal to inspection Face and Sinus: face symmetric Nose: external nose normal Mouth: oral and palatal mucosa normal Eyes conjunctivae normal General Eye: normal appearance of both eyes Neck full ROM General: normal visual inspection Lymph Lymphatic: no lymphadenopathy noted Chest inspection of chest normal and palpation of chest normal Chest: symmetrical chest wall rise Resp normal respiratory effort Effort and Inspection: able to speak in complete sentences Cardio regular rate GI non-distended Percussion: normal to percussion Rectal Exam: deferred Neuro Speech: speech normal Gait (Neuro): normal gait Lab / Micro Data Result Diagrams: 09/03/21 06:44 09/03/21 06:44 Labs: Laboratory Results - last 24 hr 09/02/21 23:42: POC Glucose 125 H 09/03/21 06:31: POC Glucose 124 H 09/03/21 06:35: MRSA (PCR) Negative 09/03/21 06:44: WBC 12.5 H, RBC 3.70 L, Hgb 10.5 L, Hct 33.6 L, MCV 90.8, MCH 28.4, MCHC 31.3 L, RDW Std Deviation 42.4, RDW Coeff of James 12.8, Plt Count 169, MPV 11.4, Immature Gran % (Auto) 0.600, Neut % (Auto) 81.6 H, Lymph % (Auto) 8.6 L, [place] % (Auto) 8.2, Eos % (Auto) 0.7, Baso % (Auto) 0.3, Absolute Neuts (auto) 10.2 H, Absolute Lymphs (auto) 1.07, Nucleated RBC % 0 09/03/21 06:44: Sodium 142, Potassium 3.8, Chloride 107, Carbon Dioxide 31.0, Anion Gap 4 L, BUN 17, Creatinine 1.18, Estim Creat Clear Calc 67.02, Est GFR (MDRD) Af Amer 80, Est GFR (MDRD) Non-Af 66, BUN/Creatinine Ratio 14.4, Glucose 138 H, Calcium 8.5, Total Bilirubin 0.90, AST 18, ALT 16, Alkaline Phosphatase 78, Total Protein 6.4, Albumin 2.6 L, Globulin 3.8, Albumin/Globulin Ratio 0.7 L 09/03/21 11:12: POC Glucose 173 H 09/03/21 16:47: POC Glucose 245 H 09/03/21 20:38: Vancomycin Trough 27.0 H 09/03/21 22:06: POC Glucose 213 H Micro: Microbiology 09/02/21 20:08 Sputum, Expectorated/Coughed Gram Stain - Final 09/02/21 20:08 Sputum, Expectorated/Coughed Respiratory Culture - Preliminary Appears to be normal respiratory hina. Further studies to follow. 09/03/21 02:09 Urine, Random Legionella Antigen - Final 09/03/21 02:09 Urine, Random Streptococcus pneumoniae Antigen (M - Final 09/02/21 15:45 Mucosa - Nasopharyngeal Respiratory Panel (PCR) - Final Radiology Impression Chest CT 09/02/21 17:55 IMPRESSION: Right lower lobe consolidation with multiple foci of biapical coarse opacities concerning for multifocal multilevel residual pneumonitis. Atelectasis/collapse of the right middle lobe. No pleural effusions or pneumothorax. Electronically Signed: Gabi Calderon MD at 3:37 EDT , Service support , Assessment & Plan Assessment/Plan (1) Pneumonia: PLAN: He will undergo upper endoscopy tomorrow to assess the esophagus, stomach and duodenum in great detail. I suspect that he may have a motility disorder. This may be secondary to reflux, eosinophilic esophagitis, esophageal stricture or hiatal hernia. (2) Esophageal dysphagia: PLAN: He will possibly undergo esophageal dilation. He was explained alternatives, risk, benefits including and not withstanding bleeding, infection, sepsis, perforation, need for emergent he will have an ASA of 3. Charges/Coding Visit Charges Inpatient E&M: 21496 Init Hosp L3
[2021-09-03] MEDS: traZODone 100 MG Tablet PO (22:20)
[2021-09-03] MEDS: Atorvastatin Calcium 80 MG Tablet PO (22:22)
[2021-09-04] VITALS (15 sets, daily range): BP systolic 129–221; BP diastolic 65–103; PULSE 54–101; RESP 16–20; TEMP 36.6–37.1; O2SAT 96–100; BMI 38.2
--- NOTE | 2021-09-04 00:11 | PCM.RX.CS ---
Consult Pharmacy has been consulted to manage selected antiobiotic: Vancomycin Type of Consult: Follow-up Labs: Sodium 142 mmol/L (136-145) 09/03/21 06:44 Potassium 3.8 mmol/L (3.5-5.1) 09/03/21 06:44 Chloride 107 mmol/L (98-107) 09/03/21 06:44 Carbon Dioxide 31.0 mmol/L (21.0-32.0) 09/03/21 06:44 Anion Gap 4 (5-15) L 09/03/21 06:44 BUN 17 mg/dL (7-18) 09/03/21 06:44 Creatinine 1.18 mg/dL (0.70-1.30) 09/03/21 06:44 Est GFR (MDRD) Af Amer 80 mL/min (>60) 09/03/21 06:44 Est GFR (MDRD) Non-Af 66 mL/min (>60) 09/03/21 06:44 BUN/Creatinine Ratio 14.4 RATIO (10-20) 09/03/21 06:44 Glucose 138 mg/dL (74-106) H 09/03/21 06:44 Vancomycin Trough 27.0 ug/mL (5.0-15.0) H 09/03/21 20:38 Microbiology: Microbiology 09/02/21 20:08 Sputum, Expectorated/Coughed Gram Stain - Final 09/02/21 20:08 Sputum, Expectorated/Coughed Respiratory Culture - Preliminary Appears to be normal respiratory hina. Further studies to follow. 09/03/21 02:09 Urine, Random Legionella Antigen - Final 09/03/21 02:09 Urine, Random Streptococcus pneumoniae Antigen (M - Final 09/02/21 15:45 Mucosa - Nasopharyngeal Respiratory Panel (PCR) - Final 09/02/21 15:10 Nasal Secretion SARS-CoV-2 Antigen (Rapid) - Final Goal Trough: 15-20 mcg/mL Pharmacy Plan for Drug Dosing: Pharmacy Service will continue to monitor and adjust dosing as required. TROUGH 27 AT 7.5 HOURS. HOLD CURRENT DOSE AND DRAW RANDOM LEVEL IN 12 HOURS Follow-Up Labs: Trough Vancomycin Labs to be done on [date and time ordered]: 09/04 @ 0830 RANDOM
--- NOTE | 2021-09-04 05:00 | EKG12_ITS ---
Test Reason : PRE-OP Blood Pressure : / mmHG Vent. Rate : 085 BPM Atrial Rate : 085 BPM P-R Int : 212 ms QRS Dur : 096 ms QT Int : 392 ms P-R-T Axes : 088 010 026 degrees QTc Int : 466 ms Sinus rhythm with marked sinus arrhythmia with 1st degree A-V block Otherwise normal ECG When compared with ECG of 06-AUG-2021 13:44, No significant change was found Confirmed by ARAMIS JOHNS, MAURO ([id number]), business editor SHARAN DOE ([id number]) on 09/09/2021 10:07:43 AM Referred By: LILLIANA Confirmed By:MAURO SELF MD
[2021-09-04] MEDS: Insulin Lispro 100 UNIT/ML INSULN.PEN SC ×3 (06:40→22:15)
[2021-09-04] MEDS: 0.9% Normal Saline 1,000 ML 100 ML IV ×2 (06:43→12:50)
[2021-09-04] MEDS: busPIRone 5 MG Tablet PO ×3 (06:46→22:15)
[2021-09-04 06:55] LABS: Bedside Glucose 171 mg/dL (70-110)
[2021-09-04] MEDS: Ipratropium/Albuterol Sulfate 3 ML AMPUL.NEB INHALATION ×3 (07:19→18:57)
--- NOTE | 2021-09-04 07:53 | PN.HOSP_ITS ---
Subjective Subjective Patient was seen in consultation by Dr. Rodriguez with gastroenterology did perform EGD this a.m. findings - A medium amount of food (residue) in the stomach. - A single gastric polyp. Resected and retrieved. Objective Data Objective Data Vital Signs: Vital Signs Temp Pulse Resp BP Pulse Ox 98 F 54 L 18 138/96 H 98 09/04/21 02:20 09/04/21 02:20 09/04/21 02:20 09/04/21 02:20 09/04/21 02:20 Oxygen Flow Rate (L/min) 2 Oxygen Delivery Method Nasal Cannula Weight: 120.5 kg Body Mass Index (BMI) 38.3 Intake & Output: Intake and Output for Last 24 Hours 09/02/21 09/03/21 09/04/21 23:59 23:59 23:59 Intake Total 1640 / 1640 3231.67 / 3231.67 883.33 / 883.33 Output Total 200 / 200 1600 / 2700 1700 / 1700 Balance 1440 / 1440 1631.67 / 531.67 -816.67 / -816.67 Lab / Micro Data Result Diagrams: 09/04/21 08:12 09/04/21 08:05 Labs: Laboratory Results - last 24 hr 09/03/21 06:35: MRSA (PCR) Negative 09/03/21 06:44: Sodium 142, Potassium 3.8, Chloride 107, Carbon Dioxide 31.0, Anion Gap 4 L, BUN 17, Creatinine 1.18, Estim Creat Clear Calc 67.02, Est GFR (MDRD) Af Amer 80, Est GFR (MDRD) Non-Af 66, BUN/Creatinine Ratio 14.4, Glucose 138 H, Calcium 8.5, Total Bilirubin 0.90, AST 18, ALT 16, Alkaline Phosphatase 78, Total Protein 6.4, Albumin 2.6 L, Globulin 3.8, Albumin/Globulin Ratio 0.7 L 09/03/21 11:12: POC Glucose 173 H 09/03/21 16:47: POC Glucose 245 H 09/03/21 20:38: Vancomycin Trough 27.0 H 09/03/21 22:06: POC Glucose 213 H 09/04/21 06:32: POC Glucose 171 H Micro: Microbiology 09/02/21 20:08 Sputum, Expectorated/Coughed Gram Stain - Final 09/02/21 20:08 Sputum, Expectorated/Coughed Respiratory Culture - Preliminary Appears to be normal respiratory hina. Further studies to follow. 09/03/21 02:09 Urine, Random Legionella Antigen - Final 09/03/21 02:09 Urine, Random Streptococcus pneumoniae Antigen (M - Final 09/02/21 15:45 Mucosa - Nasopharyngeal Respiratory Panel (PCR) - Final 09/02/21 15:10 Nasal Secretion SARS-CoV-2 Antigen (Rapid) - Final Physical Exam Narrative GENERAL: cooperative HEENT: Atraumatic; EYES; Anicteric, Normal Conjunctiva NECK; supple, normal thyroid, RESPIRATORY: Diminished to auscultation CARDIOVASCULAR: Regular S1 S2, GI: soft, normoactive bowel sounds, : No Renal angle tenderness; EXTREMITIES: No edema, no clubbing, MUSCULOSKELETAL: no muscle waisting NEURO: Awake; no lateralizing signs. SKIN: No Rash PSYCH; Flat affect Assessment & Plan Assessment/Plan (1) Bilateral pneumonia: QUALIFIERS: Aspiration pneumonia type: unspecified Lung location: lower lobe of lung Pneumonia type: aspiration pneumonia Qualified Code(s): J69.0 - Pneumonitis due to inhalation of food and vomit PLAN: Patient is a 61-year-old gentleman with underlying history of bronchiectasis with recent admissions for recurrent pneumonia who presented with shortness of breath. An assessment of pneumonia secondary to suspected aspiration made admitted to regular nursing floor for further management 1. Recurrent pneumonia ?Due to combination of patient's underlying bronchiectasis as well as suspected silent aspiration. Patient was started on broad-spectrum antibiotic therapy. Consult placed to his speech therapy for possible swallow eval. Consult was also placed to GI for possible endoscopic evaluation for severe reflux. Patient was placed on supplemental oxygen titrated to keep saturation greater than 90. Chest x-ray obtained demonstrated Right lower lobe consolidation with multiple foci of biapical coarse opacities concerning for multifocal multilevel residual pneumonitis. Atelectasis/collapse of the right middle lobe. -09/04/2021 Patient was seen in consultation by Dr. Rodriguez with gastroenterology did perform EGD this a.m. findings - A medium amount of food (residue) in the stomach. - A single gastric polyp. Resected and retrieved. 2. Bronchiectasis ?Based on recent CTA obtained during one of patient's previous admissions. C urrently being treated with incentive spirometer as well as Acapella and Mucinex 3. 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 Placed on long acting insulin, Accu-Cheks a.c. and at bedtime and covered with sliding scale insulin 4. Anemia - Secondary to chronic disorder monitoring H&H and transfuse if patient becomes symptomatic or hemoglobin falls below 7 5. Dyslipidemia -Patient is on statin therapy, continued at home dose 6. Obesity ?With BMI of 38.1, weight loss advised 7. Coronary artery disease ?Per history 8. Diabetic polyneuropathy ?Patient is on Lyrica continue 9. Chronic congestive heart failure with preserved ejection fraction ?Stable did continue patient diuretics (Lasix and Aldactone) 10. Obstructive sleep apnea ?CPAP at night 11. Depression with anxiety ?Patient is on fluoxetine did continue 12. GERD ?Patient is on PPI did continue 13. BPH ?Patient is on finasteride did continue 14. Hypertension - Blood pressure controlled, home medications continued with dose adjustment as needed 15. DVT prophylaxis - On enoxaparin Charges/Coding Visit Charges Inpatient E&M: 21416 Subs Hosp L2
[2021-09-04 08:26] LABS: Absolute Lymphocyte Count 1.14 X10^3/uL (0.83-4.51); Absolute Neutrophil Count 5.8 X10^3/uL (2.0-7.7); Basophil# 0.04 X10^3/uL; Basophil% 0.5 % (0-1); Eosinophils% 2.5 % (0-5); Hematocrit 33.2 % (40-54); Hemoglobin 10.8 g/dL (13.0-16.5); Lymphocyte # 1.14 X10^3/ul (0.83-4.51); Mean Corp Hgb Conc 32.5 g/dL (32-36); Monocyte# 0.99 X10^3/uL; Monocyte% 12.1 % (0-10); NRBC Flagged by Analyzer 0 % (0-5); Neutrophil # 5.75 X10^3/uL (2.7-7.7); Neutrophil % 70.5 % (47-70); Platelet Count 153 K/mm3 (150-450); RBC Distribution Width CV 12.7 % (11.6-14.6); RBC Distribution Width SD 41.6 fl (35.1-43.9); Red Blood Count 3.73 M/mm3 (4.6-6.2); White Blood Count 8.2 K/mm3 (4.4-11.0)
[2021-09-04 08:33] LABS: Anion Gap 6 (5-15); BUN 18 mg/dL (7-18); BUN/Creat Ratio 11.5 RATIO (10-20); Calcium,Total 8.7 mg/dL (8.5-10.1); Chloride 106 mmol/L (98-107); Creatinine, Serum 1.57 mg/dL (0.70-1.30); EST Glomerular Filtration Rate 48 mL/min (>60); Est Glom Filt Rate - Afr Amer 58 mL/min (>60); Estimated Creatinine Clearance 50.37 ml/min; Glucose 173 mg/dL (74-106); Magnesium 1.8 mg/dL (1.6-2.6); Potassium 3.4 mmol/L (3.5-5.1); Sodium Level 142 mmol/L (136-145)
[2021-09-04 08:56] LABS: Vancomycin, Random Level 18.9 ug/mL (0.0-15.0)
[2021-09-04 09:15] LABS: Hemoglobin A1c 7.7 % (3.8-5.6)
--- NOTE | 2021-09-04 10:00 | EGD_PTH ---
PATIENT: REA HANNA LOC: MS3 U#:[id number] AGE/SX: 61/M ROOM: [facility] RE09/02/[address]: Dr. Sean Linder MD : 1960 BED: 1 DIS: 09/05/2021 SPEC #: [id number] RECD: 09/04/21 12:26 STATUS: MOISÉS REQ #: [id number] MARJORIE: 09/04/21 10:[address]: Arjun Rodriguez DEPT: SURGICAL PATHOLOGY RECD BY: Gila Deutsch ENTERED: 09/04/21 13:27 SP TYPE: EGD BIOPSY OTHR DR: MD Dr. Saen Guardado MD Dr. Efewongbe Oleghe, MD Dr. Rahsaan Friend, DO Tissues: Gastric mucous membrane Procedures: Surgery Specimen Level IV Comments: @ Ordering doctor for SUIV edited from to @ by BAIRON at 09/04/21 1528 @ Submitting doctor edited from to @ by RGOOD at 09/04/21 1528 HEADER OPERATION: EGD ([facility] [place]) PRE-OP DIAGNOSIS: Dysphagia TISSUE SUBMITTED: Gastric polyp at incisura MICROSCOPIC DIAGNOSIS Gastric polyp at incisura, biopsy: Consistent with hyperplastic/inflammatory polyp. HARSHAL:guillermo 09/05/2021 MICROSCOPIC DESCRIPTION Slides are reviewed. GROSS DESCRIPTION Received in fixative is one container labeled with the patient's name and designated gastric polyp at incisura. The specimen consists of a piece of keenan-pink polyp measuring 0.5 x 0.2 x 0.2 cm. Also present in the container are two minute fragments of keenan soft tissue each measuring 0.1 cm in greatest dimension. The entire specimen is submitted in one cassette. / HARSHAL:guillermo 09/04/21 TC:2 CPT: 62035
--- NOTE | 2021-09-04 11:39 | OP.EGD_ITS ---
Patient Name: Raheem Linda Procedure Date: 09/04/2021 11:22 AM Date of : 1960 Age: 61 Procedure: Upper GI endoscopy Indications: Dyspepsia, Aspiration pneumonia Providers: Arjun Rodriguez DO Medicines: Monitored Anesthesia Care Patient Profile: This is a 61 year old male. Refer to note in patient chart for documentation of history and physical. Patient has symptoms of acute nausea and chronic regurgitation. Complications: No immediate complications. Procedure: Pre-Anesthesia Assessment: - Prior to the procedure, a History and Physical was performed, and patient medications and allergies were reviewed. The patient is competent. The risks and benefits of the procedure and the sedation options and risks were discussed with the patient. All questions were answered and informed consent was obtained. Patient identification and proposed procedure were verified by the physician in the pre-procedure area. Mental Status Examination: alert and oriented. Airway Examination: normal oropharyngeal airway and neck mobility. Respiratory Examination: clear to auscultation. CV Examination: normal. Prophylactic Antibiotics: The patient does not require prophylactic antibiotics. Prior Anticoagulants: The patient has taken no previous anticoagulant or antiplatelet agents. ASA Grade Assessment: II - A patient with mild systemic disease. After reviewing the risks and benefits, the patient was deemed in satisfactory condition to undergo the procedure. The anesthesia plan was to use moderate sedation / analgesia (conscious sedation). Immediately prior to administration of medications, the patient was re-assessed for adequacy to receive sedatives. The heart rate, respiratory rate, oxygen saturations, blood pressure, adequacy of pulmonary ventilation, and response to care were monitored throughout the procedure. The physical status of the patient was re-assessed after the procedure. After obtaining informed consent, the endoscope was passed under direct vision. Throughout the procedure, the patient's blood pressure, pulse, and oxygen saturations were monitored continuously. The gastroscope was introduced through the mouth, and advanced to the second part of duodenum. The upper GI endoscopy was accomplished without difficulty. The patient tolerated the procedure well. Moderate Sedation: Moderate (conscious) sedation was personally administered by an anesthesia professional. The following parameters were monitored: oxygen saturation, heart rate, blood pressure, and response to care. Scope In: 11:30:23 AM Scope Out: 11:35:17 AM Total Procedure Duration Time 0 hours 4 minutes 54 seconds Findings: No other significant abnormalities were identified in a careful examination of the esophagus. A medium amount of food (residue) was found in the gastric antrum. A single 5 mm sessile polyp with no stigmata of recent bleeding was found at the incisura. The polyp was removed with a cold snare. Resection and retrieval were complete. The exam of the duodenum was otherwise normal. Impression: - A medium amount of food (residue) in the stomach. - A single gastric polyp. Resected and retrieved. Recommendation: - Await pathology results. - Repeat upper endoscopy in 1 year for surveillance. - Return to GI office in 1 week. - Continue present medications. Procedure Code(s): --- Professional --- 46802, Esophagogastroduodenoscopy, flexible, transoral; with removal of tumor(s), polyp(s), or other lesion(s) by snare technique CPT copyright 2017 [employer]. All rights reserved. The codes documented in this report are preliminary and upon remote coders review may be revised to meet current compliance requirements. Arjun Rodriguez DO 09/04/2021 11:39:14 AM This report has been signed electronically. Number of Addenda: 1 Note Initiated On: 09/04/2021 11:22 AM Addendum Number: 1 Addendum Date: 07/30/2022 4:25:44 PM MAC was used instead of moderate sedation for this patient. Arjun Rodriguez DO 07/30/2022 4:25:49 PM This report has been signed electronically.
--- NOTE | 2021-09-04 11:40 | OP.CCLET_ITS ---
07/30/2022 Doretha Brown MD [address] [place] [address] [place] [address] Re : Upper GI endoscopy procedure for Raheem Linda Dear Dr. Brown This procedure was performed on August. My impressions and recommendations are as follows: Impressions : - A medium amount of food (residue) in the stomach. - A single gastric polyp. Resected and retrieved. Recommendations : - Await pathology results. - Repeat upper endoscopy in 1 year for surveillance. - Return to GI office in 1 week. - Continue present medications. My findings are described in the full procedure note, which is enclosed. If I can be of further assistance, please feel free to contact me at . Sincerely, Arjun Friend, 09/04/2021 11:39:14 AM This report has been signed electronically.
--- NOTE | 2021-09-04 11:58 | SUR.PHASEI ---
PATIENT WAS NOT RESPONSIVE AT 1145, BUT CURRENTLY HE IS AWAKE AND ASKING TO GO BACK TO HIS ROOM.
[2021-09-04] MEDS: hydrALAZINE 20 MG/ML Vial 10 MG IV (13:12)
[2021-09-04] MEDS: Glycerin/Hypromellose/PEG400 15 ml Bottle 1 DRP RIGHT EYE (13:43)
--- NOTE | 2021-09-04 14:13 | PCM.RX.CS ---
Consult Pharmacy has been consulted to manage selected antiobiotic: Vancomycin Type of Consult: Follow-up Prior Doses of Antibiotics Received/Current Regimen: 09/03/2021 @1304, 09/04/21 @1250 Labs: Sodium 142 mmol/L (136-145) 09/04/21 08:05 Potassium 3.4 mmol/L (3.5-5.1) L 09/04/21 08:05 Chloride 106 mmol/L (98-107) 09/04/21 08:05 Carbon Dioxide 30.0 mmol/L (21.0-32.0) 09/04/21 08:05 Anion Gap 6 (5-15) 09/04/21 08:05 BUN 18 mg/dL (7-18) 09/04/21 08:05 Creatinine 1.57 mg/dL (0.70-1.30) H 09/04/21 08:05 Est GFR (MDRD) Af Amer 58 mL/min (>60) L 09/04/21 08:05 Est GFR (MDRD) Non-Af 48 mL/min (>60) L 09/04/21 08:05 BUN/Creatinine Ratio 11.5 RATIO (10-20) 09/04/21 08:05 Glucose 173 mg/dL (74-106) H 09/04/21 08:05 Vancomycin Trough 27.0 ug/mL (5.0-15.0) H 09/03/21 20:38 Random Vancomycin 18.9 ug/mL (0.0-15.0) H 09/04/21 08:12 Microbiology: Microbiology 09/02/21 20:08 Sputum, Expectorated/Coughed Gram Stain - Final 09/02/21 20:08 Sputum, Expectorated/Coughed Respiratory Culture - Preliminary Appears to be normal respiratory hina. Further studies to follow. 09/02/21 15:25 Blood Culture (Wb) - Anticubital Left Blood Culture - Preliminary No growth in 48 hours. 09/03/21 02:09 Urine, Random Legionella Antigen - Final 09/03/21 02:09 Urine, Random Streptococcus pneumoniae Antigen (M - Final 09/02/21 15:45 Mucosa - Nasopharyngeal Respiratory Panel (PCR) - Final 09/02/21 15:10 Nasal Secretion SARS-CoV-2 Antigen (Rapid) - Final Weight used for dosin kg Estimated Creatinine Clearance: CRCL 60 Goal Trough: 15-20 mcg/mL Pharmacy Plan for Drug Dosing: dECREASED DOSING TO 1250MG Q12H. Will draw trough 09/06/21 0020 Pharmacy Service will continue to monitor and adjust dosing as required. Follow-Up Labs: Trough Vancomycin Labs to be done on [date and time ordered]: 09/06/2021 @0020
--- NOTE | 2021-09-04 14:30 | ST.MBS ---
Modified Barium Swallow - Patient Information Study Date: 09/04/21 Study Time: 14:30 Direct Billable Minutes: 135 Total Minutes procedure & reportin Diagnosis: dysphagia Referring Physician: Sean Linder Reason for Referral: Repeat MBS recommended in patient w/ known history of silent aspiration (MBS 07/01/21) and recurrent PNA Medical History: Amputation of one or more toes, Anxiety, Anxiety and depression, Bronchiectasis with (acute) exacerbation, CAD (coronary artery disease), Chest pain, Congestive heart failure (CHF), COPD (chronic obstructive pulmonary disease), CPAP (continuous positive airway pressure) dependence, Depression, Diabetes, GERD (gastroesophageal reflux disease), Hypertension, Kidney stones, Kidney stones, Migraines, Mood disorder, Myocardial infarct, On home oxygen therapy, PAD (peripheral artery disease), Pneumonia, Pulmonary nodule - left, Sepsis, Sleep apnea, Vision loss of left eye Prior Modified Barium Swallow Study: 07/01/21 moderate oropharyngeal dysphagia (R13.12) w/ silent aspiration of thin liquid; regular textures/thin liquids w/ recommended compensatory strategies - small bites, small sips, one sip at a time, slow rate of intake to reduce shortness of breath, double swallow as needed t/o meals to clear pharyngeal residue, cough and re-swallow at reasonable intervals t/o meals to clear the laryngeal vestibule of any residue, sit upright at 90 degrees for all meals and medications, remain upright for 30-60 minutes after meals (GERD precautions) w/ Distant Supervision recommended for verbal cues to reinforce consistent use of recommended compensatory strategies until consistent carryover use is noted and recommendation for a repeat MBS in 4-6 weeks Mental Status: WNL - able to sufficiently follow commands for participation in MBS Respiratory Status: Oxygenating on 2L/M nasal cannula - Penetration-Aspiration Scale Penetration-Aspiration Scale: OBJECTIVE ASSESSMENT OF SWALLOW FUNCTION (QUANTITATIVE ? PER TRIAL): PENETRATION / ASPIRATION SCALE (SANCHEZ): 1 = does not enter airway 2 = enters airway/above vocal folds/ejected 3 = enters airway/above vocal folds/not ejected 4 = enters airway/contacts vocal folds/ejected 5 = enters airway/contacts vocal folds/not ejected 6 = enters airway/below vocal folds/ejected 7 = enters airway/below vocal folds/not ejected despite effort 8 = enters airway/below vocal folds/no effort - Penetration-Aspiration Scale Score Thin Liquid via teaspoon Result: 1= does not enter airway Thin Liquid via teaspoon Trial 2 Result: 1= does not enter airway Thin Liquid via small single sip from cup Result: 1= does not enter airway Thin Liquid via sequential sips from cup Result: 1= does not enter airway Thin Liquid via single sip from straw Result: 1= does not enter airway Pudding Result: 1= does not enter airway Pudding Trial 2 Result: 1= does not enter airway Cookie Result: 1= does not enter airway Thin Liquid via sequential sips from cup Trial 2 Result: 1= does not enter airway - Oral Phase Labial Seal: No Labial Escape Tongue Control During Bolus Hold: Escape to lateral buccal cavity/floor of mouth Bolus Preparation/Mastication: Slow prolonged chewing/mashing with complete recollection Bolus Transport/Lingual Motion: Slowed tongue motion Oral Residue: Residue collection on oral structures - Pharyngeal Phase Initiation of Pharyngeal Swallow: Bolus head in pyriforms Soft Palate Elevation: No bolus between soft palate and pharyngeal wall Laryngeal Elevation: Partial superior movement thyroid cart/partial apprx aryt-epig petiole Anterior Hyoid Excursion: Complete anterior movement Epiglottic Movement: Complete inversion Laryngeal Vestibule Closure at Height of Swallow: Incomplete; narrow column of air/contrast in laryngeal vestibule Pharyngeal Stripping Wave: Present - diminished - upper 1/2 diminished, lower 1/2 WNL Pharyngoesophageal Segment Opening: Parital distension and partial duration; parital obstruction of flow Tongue Base Retraction: Trace column of contrast between tongue base & post. pharyngeal wall Pharyngeal Residue: Collection of residue within or on pharyngeal structures - Esophageal Phase Esophageal Clearance: Esophageal retention - Diagnosis/Impression Diagnosis: mild oropharyngeal dysphagia (R13.12) Impression: Swallow function is characterized by: reduced oral clearance w/ piecemeal deglutition pattern utilized and mild residue retention on the oral tongue premature pharyngeal bolus entry w/ suboptimal bolus location upon swallow onset delayed swallow onset w/ liquid pooling to the pyriform sinuses before initiating swallow reduced laryngeal elevation and anterior hyoid excursion resulted in delayed and incomplete laryngeal vestibule despite incomplete laryngeal vestibule closure, the patient maintained airway protection with NO penetration/aspiration across all trials mild residue retention w/in the pyriforms post deglutition, sufficiently cleared w/ a double swallow incomplete PES distention w/ appearance consistent w/ anterior esophageal webbing SEE PACS IMAGES WITH RED ARROWS for further review (patient underwent endoscopy earlier this date w/ no mention of abnormal upper esophagus) moist cough noted several minutes after MBS conclusion w/ patient reporting frequent coughing after meals; cannot rule out reflux aspiration as a contributing factor in recurrent PNA Diet Recommended: Regular Texture (IDDSI: 7)/Thin Liquid (IDDSI: 0) Compensatory Strategies Recommended: reduced bolus volume (small bites/sips), reduced rate of intake (eat slowly), double swallow as needed to clear oral/pharyngeal residue, seated upright at 90 degrees during PO intake, remain upright for 30-60 minutes post meal (GERD precaution) Additional Speech Therapy Services Recommended: Patient requires intensive skilled speech-language intervention targeting training and implementation of recommended compensatory strategies and implementation of oropharyngeal strengthening exercises to facilitate improved swallow onset timing, hyolaryngeal excursion, laryngeal vestibule closure/pressure and PES distention/duration. Patient and caregiver education regarding dysphagia associated with chronic obstructive pulmonary disease and GERD precautions also recommended. Education: Results and recommendations were discussed with the Patient immediately following MBS completion, with the Patient verbalizing understanding and agreement with all recommendations and education provided. - Status Active ST Patient: Active - Contact Information [facility] Speech Therapy:: Brenda Huber M.A., CCC-AOC [employer]IC[employer] [place] [address] [place] [address] x [phone] [email or web address]
[2021-09-04] MEDS: 0.9% Saline Lock 10 ML Syringe IV (14:58)
--- NOTE | 2021-09-04 15:48 | CASEMGMT ---
Received order for Palliative, tc to Michelle to make aware and faxed referral at this time.
[2021-09-04 16:31] LABS: Bedside Glucose 187 mg/dL (70-110)
[2021-09-04] MEDS: Pregabalin 75 MG Capsule PO (22:13)
[2021-09-04] MEDS: ALPRAZolam 0.5 MG Tablet PO (22:13)
[2021-09-04] MEDS: Atorvastatin Calcium 80 MG Tablet PO (22:13)
[2021-09-04] MEDS: Carvedilol 25 MG Tablet PO (22:13)
[2021-09-04] MEDS: traZODone 100 MG Tablet PO (22:14)
[2021-09-04 22:26] LABS: Bedside Glucose 203 mg/dL (70-110)
[2021-09-05] MEDS: 0.9% Normal Saline 1,000 ML 100 ML IV (02:35)
[2021-09-05 02:40] VITALS: BP 125/81; PULSE 63; RESP 18; TEMP 36.5; O2SAT 98
[2021-09-05 06:17] LABS: Absolute Lymphocyte Count 1.34 X10^3/uL (0.83-4.51); Basophil# 0.03 X10^3/uL; Basophil% 0.4 % (0-1); Eosinophil# 0.28 X10^3/uL; Eosinophils% 4.1 % (0-5); Hematocrit 35.1 % (40-54); Lymphocyte # 1.34 X10^3/ul (0.83-4.51); Lymphocyte % 19.8 % (19-41); Mean Corp Hgb Conc 31.3 g/dL (32-36); Mean Corpuscular Hgb 28.4 pg (27.0-32.0); Mean Corpuscular Volume 90.7 fL (80-94); Mean Platelet Vol. 10.4 fl (6.2-12.0); Monocyte# 1.08 X10^3/uL; Monocyte% 15.9 % (0-10); NRBC Flagged by Analyzer 0 % (0-5); Neutrophil # 4.03 X10^3/uL (2.7-7.7); Neutrophil % 59.5 % (47-70); Platelet Count 148 K/mm3 (150-450); RBC Distribution Width CV 12.8 % (11.6-14.6); RBC Distribution Width SD 41.9 fl (35.1-43.9); Red Blood Count 3.87 M/mm3 (4.6-6.2); White Blood Count 6.8 K/mm3 (4.4-11.0)
[2021-09-05] MEDS: busPIRone 5 MG Tablet PO (06:46)
[2021-09-05 06:47] LABS: Anion Gap 4 (5-15); BUN 15 mg/dL (7-18); BUN/Creat Ratio 10.2 RATIO (10-20); Calcium,Total 8.6 mg/dL (8.5-10.1); Chloride 108 mmol/L (98-107); Creatinine, Serum 1.47 mg/dL (0.70-1.30); EST Glomerular Filtration Rate 52 mL/min (>60); Est Glom Filt Rate - Afr Amer 62 mL/min (>60); Glucose 137 mg/dL (74-106); Potassium 3.7 mmol/L (3.5-5.1); Sodium Level 142 mmol/L (136-145)
[2021-09-05 06:55] LABS: Bedside Glucose 128 mg/dL (70-110)
[2021-09-05] MEDS: Ipratropium/Albuterol Sulfate 3 ML AMPUL.NEB INHALATION ×2 (07:26→10:35)
[2021-09-05 07:27] VITALS: PULSE 67; RESP 18; O2SAT 96
--- NOTE | 2021-09-05 07:39 | PCM.PN.HOSP ---
Objective Data Objective Data Vital Signs: Vital Signs Temp Pulse Resp BP Pulse Ox 97.7 F L 67 18 125/81 H 96 09/05/21 02:40 09/05/21 07:27 09/05/21 07:27 09/05/21 02:40 09/05/21 07:27 Oxygen Flow Rate (L/min) 2 Oxygen Delivery Method Nasal Cannula Weight: 123.2 kg Body Mass Index (BMI) 38.2 Intake & Output: Intake and Output for Last 24 Hours 09/03/21 09/04/21 09/05/21 23:59 23:59 23:59 Intake Total 3231.67 / 3231.67 3100.00 / 3100.00 45 / 45 Output Total 1600 / 2700 2000 / 2450 850 / 850 Balance 1631.67 / 531.67 1100.00 / 650.00 -805 / -805 Lab / Micro Data Result Diagrams: 09/05/21 06:05 09/05/21 06:05 Labs: Laboratory Results - last 24 hr 09/04/21 08:05: Sodium 142, Potassium 3.4 L, Chloride 106, Carbon Dioxide 30.0, Anion Gap 6, BUN 18, Creatinine 1.57 H, Estim Creat Clear Calc 50.37, Est GFR (MDRD) Af Amer 58 L, Est GFR (MDRD) Non-Af 48 L, BUN/Creatinine Ratio 11.5, Glucose 173 H, Calcium 8.7, Magnesium 1.8 09/04/21 08:05: Hemoglobin A1c 7.7 H 09/04/21 08:12: WBC 8.2, RBC 3.73 L, Hgb 10.8 L, Hct 33.2 L, MCV 89.0, MCH 29.0, MCHC 32.5, RDW Std Deviation 41.6, RDW Coeff of James 12.7, Plt Count 153, MPV 11.0, Immature Gran % (Auto) 0.400, Neut % (Auto) 70.5 H, Lymph % (Auto) 14.0 L, [place] % (Auto) 12.1 H, Eos % (Auto) 2.5, Baso % (Auto) 0.5, Absolute Neuts (auto) 5.8, Absolute Lymphs (auto) 1.14, Nucleated RBC % 0 09/04/21 08:12: Random Vancomycin 18.9 H 09/04/21 16:20: POC Glucose 187 H 09/04/21 22:11: POC Glucose 203 H 09/05/21 06:05: WBC 6.8, RBC 3.87 L, Hgb 11.0 L, Hct 35.1 L, MCV 90.7, MCH 28.4, MCHC 31.3 L, RDW Std Deviation 41.9, RDW Coeff of James 12.8, Plt Count 148 L, MPV 10.4, Immature Gran % (Auto) 0.300, Neut % (Auto) 59.5, Lymph % (Auto) 19.8, [place] % (Auto) 15.9 H, Eos % (Auto) 4.1, Baso % (Auto) 0.4, Absolute Neuts (auto) 4.0, Absolute Lymphs (auto) 1.34, Nucleated RBC % 0 09/05/21 06:05: Sodium 142, Potassium 3.7, Chloride 108 H, Carbon Dioxide 30.0, Anion Gap 4 L, BUN 15, Creatinine 1.47 H, Estim Creat Clear Calc 53.80, Est GFR (MDRD) Af Amer 62, Est GFR (MDRD) Non-Af 52 L, BUN/Creatinine Ratio 10.2, Glucose 137 H, Calcium 8.6 09/05/21 06:44: POC Glucose 128 H Micro: Microbiology 09/02/21 20:08 Sputum, Expectorated/Coughed Gram Stain - Final 09/02/21 20:08 Sputum, Expectorated/Coughed Respiratory Culture - Preliminary Appears to be normal respiratory hina. Further studies to follow. 09/02/21 15:25 Blood Culture (Wb) - Anticubital Left Blood Culture - Preliminary No growth in 48 hours. 09/03/21 02:09 Urine, Random Legionella Antigen - Final 09/03/21 02:09 Urine, Random Streptococcus pneumoniae Antigen (M - Final 09/02/21 15:45 Mucosa - Nasopharyngeal Respiratory Panel (PCR) - Final 09/02/21 15:10 Nasal Secretion SARS-CoV-2 Antigen (Rapid) - Final Physical Exam Narrative GENERAL: cooperative HEENT: Atraumatic; EYES; Anicteric, Normal Conjunctiva NECK; supple, normal thyroid, RESPIRATORY: Diminished to auscultation CARDIOVASCULAR: Regular S1 S2, GI: soft, normoactive bowel sounds, : No Renal angle tenderness; EXTREMITIES: No edema, no clubbing, MUSCULOSKELETAL: no muscle waisting NEURO: Awake; no lateralizing signs. SKIN: No Rash PSYCH; Flat affect Assessment & Plan Assessment/Plan (1) Bilateral pneumonia: QUALIFIERS: Pneumonia type: aspiration pneumonia Aspiration pneumonia type: unspecified Lung location: lower lobe of lung Qualified Code(s): J69.0 - Pneumonitis due to inhalation of food and vomit PLAN: Patient is a 61-year-old gentleman with underlying history of bronchiectasis with recent admissions for recurrent pneumonia who presented with shortness of breath. An assessment of pneumonia secondary to suspected aspiration made admitted to regular nursing floor for further management 1. Recurrent pneumonia ?Due to combination of patient's underlying bronchiectasis as well as suspected silent aspiration. Patient was started on broad-spectrum antibiotic therapy. Consult placed to his speech therapy for possible swallow eval. Consult was also placed to GI for possible endoscopic evaluation for severe reflux. Patient was placed on supplemental oxygen titrated to keep saturation greater than 90. Chest x-ray obtained demonstrated Right lower lobe consolidation with multiple foci of biapical coarse opacities concerning for multifocal multilevel residual pneumonitis. Atelectasis/collapse of the right middle lobe. -09/04/2021 Patient was seen in consultation by Dr. Rodriguez with gastroenterology did perform EGD this a.m. findings - A medium amount of food (residue) in the stomach. - A single gastric polyp. Resected and retrieved. 2. Bronchiectasis ?Based on recent CTA obtained during one of patient's previous admissions. Currently being treated with incentive spirometer as well as Acapella and Mucinex 3. 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 Placed on long acting insulin, Accu-Cheks a.c. and at bedtime and covered with sliding scale insulin 4. Anemia - Secondary to chronic disorder monitoring H&H and transfuse if patient becomes symptomatic or hemoglobin falls below 7 5. Dyslipidemia -Patient is on statin therapy, continued at home dose 6. Obesity ?With BMI of 38.1, weight loss advised 7. Coronary artery disease ?Per history 8. Diabetic polyneuropathy ?Patient is on Lyrica continue 9. Chronic congestive heart failure with preserved ejection fraction ?Stable did continue patient diuretics (Lasix and Aldactone) 10. Obstructive sleep apnea ?CPAP at night 11. Depression with anxiety ?Patient is on fluoxetine did continue 12. GERD ?Patient is on PPI did continue 13. BPH ?Patient is on finasteride did continue 14. Hypertension - Blood pressure controlled, home medications continued with dose adjustment as needed 15. DVT prophylaxis - On enoxaparin
[2021-09-05 08:30] VITALS: BP 169/107; PULSE 66; RESP 15; TEMP 36.8; O2SAT 98
--- NOTE | 2021-09-05 08:49 | PCM.CONS.P ---
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 transplanted heart: [place] heart Qualified Code(s): I25.10 - Atherosclerotic heart disease of [place] coronary artery without angina pectoris (7) PAD (peripheral artery disease): (8) Hypertension: (9) Lower extremity neuropathy: PLAN: REA HANNA, is a 61 M who was referred to [facility] related to multiple hospitalizations, worsening COPD, chronic conditions and debility. He was referred in previous hospitalizations but never returned phone calls. Palliative to reach out to patient at discharge to see if he wishes Palliative care to follow. Plan is as follows: 1) Dyspnea: Repeated hospitalizations could be related to combination of medication compliance, swallowing technique and worsening GERD. Continue medications and treatments as ordered. Follow up with GI, Pulmonary and PCP. Palliative would be willing to follow at home and monitor medication compliance and assist with management of symptoms related to worsening SOB/COPD. Goal of Palliative would be able to manage symptoms and decrease hospital readmissions. 2) neuropathic pain/ hx of toe amputations right foot: Tylenol and Lyrica appear to manage pain well at this time. Palliative could assist titration of medications as needed. 3) Debility: Palliative will encourage patient in completing PT for strengthening and safety. 4) Depression: Continue medications as ordered. may consider adding additional counseling support through Palliative care 4) COPD/DM/CAD/HTN/PAD Complicate overall care and mangement: Defer to PCP and specialist for management Thank you for the opportunity to participate in this patient's care, please do not hesitate to contact [facility] with any further questions or concerns. Palliative direct line is [phone]. We will follow have liaison contact his significant other to discuss further. Greater than 50% of F2F visit dedicated to education and counseling of palliative care services, medications, comorbid conditions and potential assistance with management, and plan of care moving forward. Start time: 08:30 End time: 09:38 HPI Consult Data Date of Consult: 09/05/21 HPI Narrative HPI Narrative: REA HANNA, is a 61 M who [facility] related to multiple hospitalizations, worsening COPD, chronic conditions and debility. He was referred in previous hospitalizations but never returned phone calls. Presented to the ER on September 02 with fever productive cough and weakness. He has a history of silent aspiration and has had pneumonia 6 times since May. Patient is on continuous oxygen at 2 L at home. Has refused further testing in the past. Past medical history listed below. Chest Xray showed Persistent bilateral infiltrates. CT without contrast showed Right lower lobe consolidation with multiple foci of biapical coarse opacities concerning for multifocal multilevel residual pneumonitis.Atelectasis/collapse of the right middle lobe. No pleural effusions or pneumothorax. He was started on IV Zosyn and Vanco. He had both Covid-19 vaccines and tested negative inpatient. GI was consulted for the severe reflux and ST for possible swallow evaluation. Treated with incentive spirometer with as well as Acapella and Mucinex for the bronchiectasis. ST recommended regular diet with thin liquids with education strategies for avoiding aspiration. Endoscopy performed on 09/04 and results - A medium amount of food (residue) in the stomach, a single gastric polyp, Resected and retrieved, await pathology results. Recommendations were to continue current meds, f/u in 1 week to GI office and repeat upper endoscopy in 1 year. Seen today eating breakfast. Palliative services explained to patient. Reports that he and his fiance would make that decision together after discharge if we would call at that time. Denies any distress at this time. Oxygen per nasal cannula at 2 liters and eating slow. Reports a small bit of upper gastric discomfort after eating and neuropathy pain in his BLE right worse than left that he takes Tylenol 1000mg. States that he monitors his blood sugars at home. Patient lives at home with oneil and she is primary caregiver. reports no steps in the dwelling. He has SN and PT active. Reports that he has a rollator and power scooter at home. He reports that PT is overwhelming and would prefer only weekly PT. Reports that he follows with pulmonary and PCP Dr. Brown. [facility] Medical History Amputation of one or more toes Anxiety Anxiety and depression Bronchiectasis with (acute) exacerbation CAD (coronary artery disease) Chest pain Congestive heart failure (CHF) COPD (chronic obstructive pulmonary disease) CPAP (continuous positive airway pressure) dependence Depression Diabetes GERD (gastroesophageal reflux disease) Hypertension Kidney stones Kidney stones Migraines Mood disorder Myocardial infarct Non-smoker On home oxygen therapy PAD (peripheral artery disease) Pneumonia Pulmonary nodule, left Sepsis Severe sepsis Sleep apnea Vision loss of left eye Home Medications acetaminophen 1,000 mg PO QHS PRN PRN 02/11/21 [History Last Taken 09/01/21] alprazolam 0.5 mg PO BID 02/11/21 [History Last Taken 09/02/21] atorvastatin 80 mg PO QHS 02/11/21 [History Last Taken 09/01/21] carvedilol 25 mg PO BID 02/11/21 [History Last Taken 09/02/21] clopidogrel 75 mg PO DAILY 02/11/21 [History Last Taken 09/02/21] finasteride 5 mg PO DAILY 02/11/21 [History Last Taken 09/02/21] fluoxetine 40 mg PO DAILY 02/11/21 [History Last Taken 09/02/21] insulin detemir U-100 28 unit SQ QHS 02/11/21 [History Last Taken 09/01/21] insulin lispro See Protocol SQ TIDCM 02/11/21 [History Last Taken 09/02/21] isosorbide mononitrate 30 mg PO DAILY 02/11/21 [History Last Taken 09/02/21] nitroglycerin 0.4 mg SL Q5M PRN 02/11/21 [History Last Taken 02/08/21] pantoprazole 20 mg PO DAILY 02/11/21 [History Last Taken 09/02/21] pregabalin [Lyrica] 75 mg PO BID 05/13/21 [History Last Taken 09/02/21] trazodone 100 mg PO QHS #0 tab 07/02/21 [Rx Last Taken 09/01/21] exenatide microspheres 2 mg SUBCUT TH 07/10/21 [History Last Taken 08/28/21] albuterol sulfate 90 mcg/actuation aerosol inhaler 2 puff INHALATION Q4H PRN #8.5 g 07/24/21 [Rx Last Taken 09/01/21] clotrimazole 1 applic TOPICAL BID PRN 08/06/21 [History Last Taken Unknown] nystatin [Nyamyc] 1 applic TOPICAL BID PRN 08/06/21 [History Last Taken Unknown] buspirone 7.5 mg tablet 7.5 mg PO TID tab 08/15/21 [History Last Taken 09/02/21] fluoxetine 20 mg capsule 20 mg PO DAILY cap 08/15/21 [History Last Taken 09/02/21] losartan 50 mg tablet 50 mg PO DAILY #90 tab 08/15/21 [Rx Last Taken 09/02/21] furosemide 20 mg PO DAILY 09/02/21 [History Last Taken 09/02/21] spironolactone 12.5 mg PO DAILY 09/02/21 [History Last Taken 09/02/21] Allergy/AdvReac Type Severity Reaction Status Date / Time allopurinol AdvReac Vomiting Verified 09/02/21 14:51 Influenza Virus Vaccines AdvReac Vomiting Verified 09/02/21 14:51 pneumococcal vaccine AdvReac Vomiting Verified 09/02/21 14:51 Family History Mother Diabetes Heart disease CHF Father Heart disease [place]/CAD Myocardial infarction Surgical History H/O lithotripsy History of ankle surgery History of coronary artery stent placement Hx of toe surgery S/P peripheral artery angioplasty with stent placement S/P thyroid surgery Social History household members: spouse housing: apartment Smoking Status: Never smoker alcohol intake: never substance use type: does not use ROS Constitutional Constitutional: Reports systems reviewed and no addt'l complaints, except as documented Cardiovascular Cardiovascular: Denies chest pain, chest pain at rest, chest pain with activity, cold extremities, lightheadedness or pedal edema Respiratory/Chest Respiratory/Chest: Reports cough and dyspnea on exertion; Denies shortness of breath at rest Gastrointestinal Gastrointestinal: Denies abdominal pain, constipation or diarrhea Psychiatric Psychiatric: Reports other Details: treated for depression Physical Exam Const alert, oriented x3 and no apparent distress General Appearance: cooperative and comfortable HEENT normocephalic, head/scalp atraumatic and hearing grossly normal bilaterally Head and Scalp: normal to inspection, normocephalic and atraumatic Face and Sinus: other facial hair Neck full ROM and supple General: normal visual inspection and trachea midline Chest Chest: symmetrical chest wall rise Resp normal air movement Auscultation: diminished lung sounds bilateral Cardio regular rate, regular rhythm, S1 normal heart sound and S2 normal heart sound GI normal to inspection, nondistended, normoactive bowel sounds, soft to palpation and non-tender Extremity no clubbing, cyanosis or edema
[2021-09-05 09:19] VITALS: RESP 15
--- NOTE | 2021-09-05 09:49 | CASEMGMT ---
Social Work Note SW updated that pt has history of depression. SW in to speak with pt. SW introduced self and role at [facility]. Pt confirms he has history of depression, states he is currently on medications. Pt states that he is doing good with his depression. Pt denied any history of suicidal thoughts/plans/ideations. Pt denied any current suicidal thoughts/plans/ideations. Pt states he is going to talk to his PCP about recommendations on a counselor/therapist to see. Pt states that he has a son and his son is engaged and his son's fiance will come over to pt's house and will eat something and then gag herself to throw up. Pt states he doesn't want to hear that and has spoken to his son's fiance before about it and then she just starts crying. Pt states he thinks talking to a therapist/counselor would be beneficial. SW explained benefits of counseling, offered to provide pt with list of counseling agencies, and pt denied. Pt states again that he will just talk to his PCP about a counselor/therapist. SW utilized active listening skills and provided support to pt throughout the conversation. Pt denied additional needs or concerns at this time. Becca Walton SUPERVISOR [employer] PLATING, MAINTENANCE SUPERVISOR ELECTRICAL
[2021-09-05] MEDS: Carvedilol 25 MG Tablet PO (10:07)
[2021-09-05] MEDS: Isosorbide Mononitrate 30 MG Tablet PO (10:07)
[2021-09-05] MEDS: FLUoxetine 20 MG Capsule 40 MG PO (10:07)
[2021-09-05] MEDS: Clopidogrel Bisulfate 75 MG Tablet PO (10:07)
[2021-09-05] MEDS: Losartan Potassium 50 MG Tablet PO (10:07)
[2021-09-05] MEDS: Furosemide 40 MG Tablet PO (10:07)
[2021-09-05] MEDS: Spironolactone 50 MG Tablet PO (10:07)
[2021-09-05] MEDS: Enoxaparin 40 MG/0.4 ML Syringe SC (10:07)
[2021-09-05] MEDS: Pantoprazole Sodium 20 MG Tablet PO (10:08)
[2021-09-05] MEDS: Pregabalin 75 MG Capsule PO (10:10)
[2021-09-05] MEDS: ALPRAZolam 0.5 MG Tablet PO (10:10)
[2021-09-05] MEDS: Finasteride 5 MG Tablet PO (10:11)
--- NOTE | 2021-09-05 10:24 | DS.PCM_ITS ---
Providers Date of Admission: 09/02/21 Primary Care Physician: Dr. Doretha Borwn MD Consultations 09/03/21 09:32 Consult: Gastroenterology Routine Consulting Provider: Arjun Rodriguez Reason for Consult: recurrent aspiration EMERGENT Consult: No MD Notified: Yes Date Notified: 09/03/21 Time Notified: 09:32 Method of Notification: Answering Service Reason For Visit: ASPIRATION PNA, ACUTE RESP INSUFFICIENCY Diagnosis Discharge Diagnosis (1) Esophageal dysphagia: Status: Acute Code(s): R13.19 - Other dysphagia (2) Pneumonia: Status: Acute Code(s): J18.9 - Pneumonia, unspecified organism (3) Anxiety and depression: Status: Acute Code(s): F41.9 - Anxiety disorder, unspecified; F32.9 - Major depressive disorder, single episode, unspecified (4) Bilateral pneumonia: Status: Acute Code(s): J18.9 - Pneumonia, unspecified organism Qualifiers: Pneumonia type: aspiration pneumonia Aspiration pneumonia type: unspecified Lung location: lower lobe of lung Qualified Code(s): J69.0 - Pneumonitis due to inhalation of food and vomit (5) Diabetes mellitus: Status: Acute Code(s): E11.9 - Type 2 diabetes mellitus without complications Qualifiers: Diabetes mellitus type: type 2 Diabetes mellitus jail insulin use: with jail use Diabetes mellitus complication status: with other specified complication Qualified Code(s): E11.69 - Type 2 diabetes mellitus with other specified complication; Z79.4 - correction (current) use of insulin (6) CAD (coronary artery disease): Status: Chronic Code(s): I25.10 - Atherosclerotic heart disease of [place] coronary artery without angina pectoris Qualifiers: Coronary Disease-Associated Artery/Lesion type: unspecified vessel or lesion type [place] vs. transplanted heart: [place] heart Associated angina: angina presence unspecified Qualified Code(s): I25.10 - Atherosclerotic heart disease of [place] coronary artery without angina pectoris (7) PAD (peripheral artery disease): Status: Chronic Code(s): I73.9 - Peripheral vascular disease, unspecified (8) Hypertension: Status: Chronic Code(s): I10 - Essential (primary) hypertension (9) Lower extremity neuropathy: Status: Acute Code(s): G57.90 - Unspecified mononeuropathy of unspecified lower limb Medications at Discharge Home Medications acetaminophen 1,000 mg PO QHS PRN PRN 02/11/21 alprazolam 0.5 mg PO BID 02/11/21 atorvastatin 80 mg PO QHS 02/11/21 carvedilol 25 mg PO BID 02/11/21 clopidogrel 75 mg PO DAILY 02/11/21 finasteride 5 mg PO DAILY 02/11/21 fluoxetine 40 mg PO DAILY 02/11/21 insulin detemir U-100 28 unit SQ QHS 02/11/21 insulin lispro See Protocol SQ TIDCM 02/11/21 isosorbide mononitrate 30 mg PO DAILY 02/11/21 nitroglycerin 0.4 mg SL Q5M PRN 02/11/21 pantoprazole 20 mg PO DAILY 02/11/21 pregabalin [Lyrica] 75 mg PO BID 05/13/21 trazodone 100 mg PO QHS #0 tab 07/02/21 exenatide microspheres 2 mg SUBCUT TH 07/10/21 albuterol sulfate 90 mcg/actuation aerosol inhaler 2 puff INHALATION Q4H PRN #8.5 g 07/24/21 clotrimazole 1 applic TOPICAL BID PRN 08/06/21 nystatin [Nyamyc] 1 applic TOPICAL BID PRN 08/06/21 buspirone 7.5 mg tablet 7.5 mg PO TID tab 08/15/21 fluoxetine 20 mg capsule 20 mg PO DAILY cap 08/15/21 losartan 50 mg tablet 50 mg PO DAILY #90 tab 08/15/21 furosemide 20 mg PO DAILY 09/02/21 spironolactone 12.5 mg PO DAILY 09/02/21 amoxicillin-pot clavulanate [Augmentin] 1 tab PO BID #14 tab 09/05/21 Hospital Course Summary of Care Provided Minutes Spent on Discharge: 35 Hospital Course: Patient is a 61-year-old gentleman with underlying history of bronchiectasis with recent admissions for recurrent pneumonia who presented with shortness of breath. An assessment of pneumonia secondary to suspected aspiration made admitted to regular nursing floor for further management 1. Recurrent pneumonia ?Due to combination of patient's underlying bronchiectasis as well as suspected silent aspiration. Patient was started on broad-spectrum antibiotic therapy. Consult placed to his speech therapy for possible swallow eval. Consult was also placed to GI for possible endoscopic evaluation for severe reflux. Patient was placed on supplemental oxygen titrated to keep saturation greater than 90. Chest x-ray obtained demonstrated Right lower lobe consolidation with multiple foci of biapical coarse opacities concerning for multifocal multilevel residual pneumonitis. Atelectasis/collapse of the right middle lobe. -09/04/2021 Patient was seen in consultation by Dr. Rodriguez with gastroenterology did perform EGD this a.m. findings - A medium amount of food (residue) in the stomach. - A single gastric polyp. Resected and retrieved. -Patient was also seen and assessed by speech therapy appropriate diet recommended. ?09/05/2021. Patient assessed to be stable for discharge was discharged home on Augmentin with plans for patient to follow-up with PCP and GI as outpatient 2. Bronchiectasis ?Based on recent CTA obtained during one of patient's previous admissions. Currently being treated with incentive spirometer as well as Acapella and Mucinex 3. 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 Placed on long acting insulin, Accu-Cheks a.c. and at bedtime and covered with sliding scale insulin 4. Anemia - Secondary to chronic disorder monitoring H&H and transfuse if patient becomes symptomatic or hemoglobin falls below 7 5. Dyslipidemia -Patient is on statin therapy, continued at home dose 6. Obesity ?With BMI of 38.1, weight loss advised 7. Coronary artery disease ?Per history 8. Diabetic polyneuropathy ?Patient is on Lyrica continue 9. Chronic congestive heart failure with preserved ejection fraction ?Stable did continue patient diuretics (Lasix and Aldactone) 10. Obstructive sleep apnea ?CPAP at night 11. Depression with anxiety ?Patient is on fluoxetine did continue 12. GERD ?Patient is on PPI did continue 13. BPH ?Patient is on finasteride did continue 14. Hypertension - Blood pressure controlled, home medications continued with dose adjustment as needed 15. DVT prophylaxis - On enoxaparin Physical Exam Narrative GENERAL: cooperative HEENT: Atraumatic; EYES; Anicteric, Normal Conjunctiva NECK; supple, normal thyroid, RESPIRATORY: Diminished to auscultation CARDIOVASCULAR: Regular S1 S2, GI: soft, normoactive bowel sounds, : No Renal angle tenderness; EXTREMITIES: No edema, no clubbing, MUSCULOSKELETAL: no muscle waisting NEURO: Awake; no lateralizing signs. SKIN: No Rash PSYCH; Flat affect Weight / BMI Weight Weight: 123.2 kg Body Mass Index (BMI) 38.2 ABG / Lab / Microbiology Data Result Diagrams: 09/05/21 06:05 09/05/21 06:05 Laboratory: Laboratory Results - last 24 hr 09/04/21 16:20: POC Glucose 187 H 09/04/21 22:11: POC Glucose 203 H 09/05/21 06:05: WBC 6.8, RBC 3.87 L, Hgb 11.0 L, Hct 35.1 L, MCV 90.7, MCH 28.4, MCHC 31.3 L, RDW Std Deviation 41.9, RDW Coeff of James 12.8, Plt Count 148 L, MPV 10.4, Immature Gran % (Auto) 0.300, Neut % (Auto) 59.5, Lymph % (Auto) 19.8, [place] % (Auto) 15.9 H, Eos % (Auto) 4.1, Baso % (Auto) 0.4, Absolute Neuts (auto) 4.0, Absolute Lymphs (auto) 1.34, Nucleated RBC % 0 09/05/21 06:05: Sodium 142, Potassium 3.7, Chloride 108 H, Carbon Dioxide 30.0, Anion Gap 4 L, BUN 15, Creatinine 1.47 H, Estim Creat Clear Calc 53.80, Est GFR (MDRD) Af Amer 62, Est GFR (MDRD) Non-Af 52 L, BUN/Creatinine Ratio 10.2, Glucose 137 H, Calcium 8.6 09/05/21 06:44: POC Glucose 128 H Microbiology: Microbiology 09/02/21 15:50 Blood Culture (Wb) - Right Hand Blood Culture - Preliminary No growth in 48 hours. 09/02/21 20:08 Sputum, Expectorated/Coughed Gram Stain - Final 09/02/21 20:08 Sputum, Expectorated/Coughed Respiratory Culture - Final 09/02/21 15:25 Blood Culture (Wb) - Anticubital Left Blood Culture - Preliminary No growth in 48 hours. 09/03/21 02:09 Urine, Random Legionella Antigen - Final 09/03/21 02:09 Urine, Random Streptococcus pneumoniae Antigen (M - Final 09/02/21 15:45 Mucosa - Nasopharyngeal Respiratory Panel (PCR) - Final 09/02/21 15:10 Nasal Secretion SARS-CoV-2 Antigen (Rapid) - Final D/C Instructions Discharge Diet: Soft diet, Low fat / Low cholesterol and 1800 Calorie Control Diet Discharge Activity: Return to Normal Activity Call your doctor if you observe: Fever of 101 or Higher, Shortness of breath, Fainting spells and Chest pain Meaningful Use Info Meaningful Use Diagnoses (Choose all that apply): None applicable Discharge Plan Admission Admit Date/Time: 09/02/21 16:32 Attending Provider: Sean Linder Primary Care Provider: Doretha Brown Consulting Providers: Arjun Rodriguez Discharge Orders/Prescriptions Prescriptions: New amoxicillin-pot clavulanate [Augmentin] 875-125 mg tablet 1 tab PO BID Qty: 14 RF: 0 Continued albuterol sulfate 90 mcg/actuation HFA aerosol inhaler 2 puff inhalation Q4H PRN (Reason: shortness of breath or wheezing) Qty: 8.5 RF: 3 fluoxetine 20 mg capsule 20 mg PO DAILY RF: 0 losartan 50 mg tablet 50 mg PO DAILY Qty: 90 RF: 1 fluoxetine 40 MG capsule 40 mg PO DAILY RF: 0 atorvastatin 80 MG tablet 80 mg PO QHS RF: 0 carvedilol 25 MG tablet 25 mg PO BID RF: 0 isosorbide mononitrate 30 MG tablet extended release 24 hr 30 mg PO DAILY RF: 0 clopidogrel 75 MG tablet 75 mg PO DAILY RF: 0 acetaminophen 500 MG tablet 1,000 mg PO QHS PRN PRN (Reason: Pain 1-10 Or Fever) RF: 0 pantoprazole 20 MG tablet 20 mg PO DAILY RF: 0 alprazolam 0.5 MG tablet 0.5 mg PO BID RF: 0 nitroglycerin 0.4 MG tablet, sublingual 0.4 mg SL Q5M PRN (Reason: Chest Pain) RF: 0 finasteride 5 MG tablet 5 mg PO DAILY RF: 0 insulin lispro 100 UNIT/ML insulin pen See Protocol unit SQ TIDCM RF: 0 insulin detemir U-100 100 UNIT/ML insulin pen 28 unit SQ QHS RF: 0 buspirone 7.5 mg tablet 7.5 mg PO TID RF: 0 pregabalin [Lyrica] 75 mg Capsule 75 mg PO BID RF: 0 trazodone 100 MG tablet 100 mg PO QHS Qty: 0 RF: 0 exenatide microspheres 2 mg/0.65 mL Pen Injector 2 mg SUBCUT TH RF: 0 nystatin [[facility]] 100,000 unit/gram powder 1 applic topical BID PRN (Reason: Rash) RF: 0 clotrimazole 1 % cream 1 applic topical BID PRN (Reason: Rash) RF: 0 spironolactone 25 mg tablet 12.5 mg PO DAILY RF: 0 furosemide 20 mg tablet 20 mg PO DAILY RF: 0 Referrals / Follow Up: Doretha Brown MD [Primary Care Provider] - Within 1 Week Arjun Rodriguez DO [STAFF PHYSICIAN] - Within 2 Weeks Disposition Disposition (needs filled in before D/C Order can be placed): Home Health Service Charges/Coding Visit Charges Inpatient E&M: 09123 Disch Hosp
[2021-09-05 10:36] VITALS: PULSE 79; RESP 20
[2021-09-05] MEDS: Insulin Lispro 100 UNIT/ML INSULN.PEN SC (11:13)
[2021-09-05 11:20] LABS: Bedside Glucose 158 mg/dL (70-110)
--- NOTE | 2021-09-05 11:25 | PCS.PANDOC ---
PANDEMIC DOCUMENTATION INITIATED: Date: 07/14/2021 Time: 190
--- NOTE | 2021-09-09 14:01 | CASEMGMT ---
[facility] Discharge Follow Up Phone Call: YOUSIF: Lizz Strata: 3 Call Date: 09/09/21 Discharge Date: 09/05/21 Time of Call: 1402 Duration: < 1min Admitting Dx:Aspirations PNA, acute respiratory insuff ALICE [facility] attempted to complete follow up phone call after recent hospitalization, no answer and unable to leave a voicemail at this time.
== END 2021-09-05 13:09 | disposition home health service (06) | DRG 191 ==
LOC: ED 16:24 → MS3 16:44
PROVIDERS: Anesthesiology; Internal Medicine Gastroenterology; Admitting Provider Family Medicine; Emergency Provider Emergency Medicine; PCP Internal Medicine; Visit Provider Internal Medicine
PROC: 0DJ08ZZ Inspection of Upper Intestinal Tract, Via Natural or Artificial Opening Endoscopic (ICD-10-PCS; CPT 43235; principal; 2021-09-04 09:55)
DX: J47.0 Bronchiectasis with acute lower respiratory infection (principal); I50.32 Chronic diastolic (congestive) heart failure; I13.0 Hypertensive heart and chronic kidney disease with heart failure and stage 1 through stage 4 chronic kidney disease, or unspecified chronic kidney disease; J96.11 Chronic respiratory failure with hypoxia; J69.0 Pneumonitis due to inhalation of food and vomit; E11.42 Type 2 diabetes mellitus with diabetic polyneuropathy; K31.7 Polyp of stomach and duodenum; D63.8 Anemia in other chronic diseases classified elsewhere; E78.5 Hyperlipidemia, unspecified; E66.9 Obesity, unspecified; Z68.38 Body mass index [BMI] 38.0-38.9, adult; I25.10 Atherosclerotic heart disease of native coronary artery without angina pectoris; K21.9 Gastro-esophageal reflux disease without esophagitis; F32.A Depression, unspecified; N40.0 Benign prostatic hyperplasia without lower urinary tract symptoms; E11.51 Type 2 diabetes mellitus with diabetic peripheral angiopathy without gangrene; R62.7 Adult failure to thrive; N18.31 Chronic kidney disease, stage 3a; E11.22 Type 2 diabetes mellitus with diabetic chronic kidney disease; R13.14 Dysphagia, pharyngoesophageal phase; E11.41 Type 2 diabetes mellitus with diabetic mononeuropathy; F41.9 Anxiety disorder, unspecified; G47.33 Obstructive sleep apnea (adult) (pediatric); I25.2 Old myocardial infarction; G43.909 Migraine, unspecified, not intractable, without status migrainosus; Z87.442 Personal history of urinary calculi; Z86.19 Personal history of other infectious and parasitic diseases; Z87.01 Personal history of pneumonia (recurrent); Z99.81 Dependence on supplemental oxygen; Z95.5 Presence of coronary angioplasty implant and graft; Z79.02 Long term (current) use of antithrombotics/antiplatelets; Z79.4 Long term (current) use of insulin; Z79.899 Other long term (current) drug therapy
CPT/HCPCS: 36415; 71045; 71250; 74230; 80048; 80053; 80202; 81001; 82962; 83036; 83605; 83735; 85025; 87040; 87070; 87205; 87426; 87449; 87633; 87635; 87641; 88305; 92610; 92611; 93005; 94640; 94762; 97110; 97162; 97166; 99251; 99285; J7030; J7040; J7050; U0005; A4216; G0463; J2405; U0003

== ENCOUNTER 2021-09-14 23:22 | Emergency (ER) | payer MEDICARE, MEDICAID, SELFPAY ==
[2021-09-14 23:24] VITALS: BP 157/101; PULSE 86; RESP 18; TEMP 36.8; O2SAT 96; BMI 39.1
--- NOTE | 2021-09-14 23:57 | EX.ED.DYSGE1 ---
HPI History of Present Illness Chief Complaint: Hyperglycemia Narrative Narrative: 61-year-old male presenting with hyperglycemia. Patient states he is on day 4 of a Medrol Dosepak. He was given this for gout in the right foot. He states his right foot is improved but he still on the Medrol Dosepak. Patient's highest blood sugar was 600 on day 2. On day 4 he is now 400. Patient states that he feels otherwise well. He states that he has a sliding scale for his Humalog that he can use up to 500 and has been trying this but the blood sugars are still elevated, although they were lower than they were before. Patient denies any fever, chills, nausea, vomiting, diarrhea. He is eating and drinking normally. He denies urinary complaints. He denies chest pain. [facility] Medical History Acute gout Amputation of one or more toes Anxiety Anxiety and depression Arrhythmia Aspiration pneumonia Bronchiectasis with (acute) exacerbation CAD (coronary artery disease) Chest pain Congestive heart failure (CHF) COPD (chronic obstructive pulmonary disease) CPAP (continuous positive airway pressure) dependence Depression Diabetes GERD (gastroesophageal reflux disease) Hypertension Kidney stones Kidney stones Migraines Mood disorder Myocardial infarct Non-smoker On home oxygen therapy PAD (peripheral artery disease) Pneumonia Pulmonary nodule, left Sepsis Severe sepsis Sleep apnea Vision loss of left eye Home Medications acetaminophen 1,000 mg PO QHS PRN PRN 02/11/21 [History Last Taken 09/01/21] alprazolam 0.5 mg PO BID 02/11/21 [History Last Taken 09/02/21] atorvastatin 80 mg PO QHS 02/11/21 [History Last Taken 09/01/21] carvedilol 25 mg PO BID 02/11/21 [History Last Taken 09/02/21] clopidogrel 75 mg PO DAILY 02/11/21 [History Last Taken 09/02/21] finasteride 5 mg PO DAILY 02/11/21 [History Last Taken 09/02/21] fluoxetine 40 mg PO DAILY 02/11/21 [History Last Taken 09/02/21] insulin detemir U-100 28 unit SQ QHS 02/11/21 [History Last Taken 09/01/21] insulin lispro See Protocol SQ TIDCM 02/11/21 [History Last Taken 09/02/21] isosorbide mononitrate 30 mg PO DAILY 02/11/21 [History Last Taken 09/02/21] nitroglycerin 0.4 mg SL Q5M PRN 02/11/21 [History Last Taken 02/08/21] pantoprazole 20 mg PO DAILY 02/11/21 [History Last Taken 09/02/21] pregabalin [Lyrica] 75 mg PO BID 05/13/21 [History Last Taken 09/02/21] trazodone 100 mg PO QHS #0 tab 07/02/21 [Rx Last Taken 09/01/21] exenatide microspheres 2 mg SUBCUT TH 07/10/21 [History Last Taken 08/28/21] albuterol sulfate 90 mcg/actuation aerosol inhaler 2 puff INHALATION Q4H PRN #8.5 g 07/24/21 [Rx Last Taken 09/01/21] clotrimazole 1 applic TOPICAL BID PRN 08/06/21 [History Last Taken Unknown] nystatin [Nyamyc] 1 applic TOPICAL BID PRN 08/06/21 [History Last Taken Unknown] buspirone 7.5 mg tablet 7.5 mg PO TID tab 08/15/21 [History Last Taken 09/02/21] fluoxetine 20 mg capsule 20 mg PO DAILY cap 08/15/21 [History Last Taken 09/02/21] losartan 50 mg tablet 50 mg PO DAILY #90 tab 08/15/21 [Rx Last Taken 09/02/21] furosemide 20 mg PO DAILY 09/02/21 [History Last Taken 09/02/21] spironolactone 12.5 mg PO DAILY 09/02/21 [History Last Taken 09/02/21] methylprednisolone 4 mg tablets in a dose pack See Rx Instructions PO PER PKG DIR #21 tab 09/11/21 [Rx Last Taken Unknown] Allergy/AdvReac Type Severity Reaction Status Date / Time allopurinol AdvReac Vomiting Verified 09/14/21 23:50 Influenza Virus Vaccines AdvReac Vomiting Verified 09/14/21 23:50 pneumococcal vaccine AdvReac Vomiting Verified 09/14/21 23:50 Family History Mother Diabetes Heart disease CHF Father Heart disease [place]/CAD Myocardial infarction Surgical History H/O lithotripsy History of ankle surgery History of coronary artery stent placement Hx of toe surgery S/P peripheral artery angioplasty with stent placement S/P thyroid surgery Social History household members: spouse housing: apartment Smoking Status: Never smoker alcohol intake: never substance use type: does not use ROS ROS ED Constitutional Constitutional ED: Denies chills or fever(s) Eyes Eyes: Denies blurry vision or change in vision ENT ENT ED: Denies rhinorrhea Cardiovascular Cardiovascular: Denies chest pain or palpitations Respiratory/Chest Respiratory/Chest: Denies cough, dyspnea or sputum Gastrointestinal Gastrointestinal: Denies abdominal pain, nausea or vomiting Genitourinary Genitourinary ED: Denies dysuria or hematuria Musculoskeletal Musculoskeletal: Denies back pain, myalgias or neck pain Integumentary Denies Abrasions or rash EXAM Physical Exam Const Vital Signs: 09/14/21 23:24 09/14/21 23:44 Temperature 98.3 F Temperature Source Oral Pulse Rate 86 Respiratory Rate 18 Respiratory Effort Normal Respiratory Pattern Normal Blood Pressure 157/101 H Blood Pressure Mean 119 Pulse Ox 96 Oxygen Delivery Method Room Air Positive well nourished and obese General Appearance ED: NAD; Negative for pallor Nutritional Appearance: obese HEENT Reports moist mucous membranes Negative for trauma Eyes PERRL and EOMs intact bilaterally Resp normal respiratory effort and clear to auscultation bilaterally Cardio regular rate and regular rhythm Extremity normal to inspection General Extremety ED: Negative for edema or tenderness General Extremity: Negative for edema Neuro oriented x3, CN's II-XII intact bilaterally and no sensory deficits noted Sensorium / Orientation: alert Motor Exam: strength 5/5 throughout Psych mental status grossly normal Skin General Skin Exam: Negative for jaundice or pallor MDM MDM MDM Narrative Medical decision making narrative: Patient presents with elevated blood sugars. He states his last blood sugar was 400. He has a sliding scale that goes up to 500 and he has been trying this at home. It sounds as if his blood sugars are going down because he is on the lower doses of steroids for the Medrol Dosepak. He states his foot is completely better. I looked at the notes from his previous visit when he was prescribed the Medrol Dosepak and is specifically states that he is supposed to call the office if he has any elevated blood sugars and keep a blood sugar diary so that they can address it. He states that he did not call because it is the weekend and he did not think anyone was in. I will obtain blood work to determine the level of his blood sugar. He will likely need insulin. Patient CBC shows a slight leukocytosis however the patient is on steroids. His foot looks much improved and he admits that it looks better. His creatinine is baseline. Initial glucose on blood work is 383 he was given 15 units of Humalog after 30 minutes he is down to 347. Patient does not have an anion gap concern for DKA. Counseled patient to use a sliding scale at home. He will call his primary care provider in the morning. I did general counselor him that if his gout is improved he likely does not need more steroids. Patient stable discharge home at this time. Impression: 1. Hyperglycemia Lab Data Labs: Laboratory Results - last 24 hr 09/14/21 09/14/21 09/14/21 23:50 23:50 23:58 WBC 13.8 H RBC 3.82 L Hgb 10.7 L Hct 33.5 L MCV 87.7 MCH 28.0 MCHC 31.9 L RDW Std Deviation 39.4 RDW Coeff of James 12.2 Plt Count 256 MPV 11.4 Immature Gran % (Auto) 0.600 Neut % (Auto) 83.7 H Lymph % (Auto) 8.7 L [place] % (Auto) 6.8 Eos % (Auto) 0.1 Baso % (Auto) 0.1 Absolute Neuts (auto) 11.5 H Absolute Lymphs (auto) 1.20 Nucleated RBC % 0 Sodium 136 Potassium 4.6 Chloride 97 L Carbon Dioxide 34.0 H Anion Gap 5 BUN 27 H Creatinine 1.50 H Estim Creat Clear Calc 52.72 Est GFR (MDRD) Af Amer 61 Est GFR (MDRD) Non-Af 50 L BUN/Creatinine Ratio 18.0 Glucose 383 H Calcium 9.1 POC Glucose 372 H 09/15/21 02:35 WBC RBC Hgb Hct MCV MCH MCHC RDW Std Deviation RDW Coeff of James Plt Count MPV Immature Gran % (Auto) Neut % (Auto) Lymph % (Auto) [place] % (Auto) Eos % (Auto) Baso % (Auto) Absolute Neuts (auto) Absolute Lymphs (auto) Nucleated RBC % Sodium Potassium Chloride Carbon Dioxide Anion Gap BUN Creatinine Estim Creat Clear Calc Est GFR (MDRD) Af Amer Est GFR (MDRD) Non-Af BUN/Creatinine Ratio Glucose Calcium POC Glucose 347 H Discharge Plan Triage Chief Complaint: Hyperglycemia ED Provider: Ck Villar Dx/Rx/DC Orders Instructions: ED Diabetic Hyperglycemia Prescriptions: No Action albuterol sulfate 90 mcg/actuation HFA aerosol inhaler 2 puff inhalation Q4H PRN (Reason: shortness of breath or wheezing) Qty: 8.5 RF: 3 fluoxetine 20 mg capsule 20 mg PO DAILY RF: 0 losartan 50 mg tablet 50 mg PO DAILY Qty: 90 RF: 1 methylprednisolone [Medrol (Martínez)] 4 mg tablets,dose pack See Rx Instructions PO PER PKG DIR Qty: 21 RF: 0 fluoxetine 40 MG capsule 40 mg PO DAILY RF: 0 atorvastatin 80 MG tablet 80 mg PO QHS RF: 0 carvedilol 25 MG tablet 25 mg PO BID RF: 0 isosorbide mononitrate 30 MG tablet extended release 24 hr 30 mg PO DAILY RF: 0 clopidogrel 75 MG tablet 75 mg PO DAILY RF: 0 acetaminophen 500 MG tablet 1,000 mg PO QHS PRN PRN (Reason: Pain 1-10 Or Fever) RF: 0 pantoprazole 20 MG tablet 20 mg PO DAILY RF: 0 alprazolam 0.5 MG tablet 0.5 mg PO BID RF: 0 nitroglycerin 0.4 MG tablet, sublingual 0.4 mg SL Q5M PRN (Reason: Chest Pain) RF: 0 finasteride 5 MG tablet 5 mg PO DAILY RF: 0 insulin lispro 100 UNIT/ML insulin pen See Protocol unit SQ TIDCM RF: 0 insulin detemir U-100 100 UNIT/ML insulin pen 28 unit SQ QHS RF: 0 buspirone 7.5 mg tablet 7.5 mg PO TID RF: 0 pregabalin [Lyrica] 75 mg Capsule 75 mg PO BID RF: 0 trazodone 100 MG tablet 100 mg PO QHS Qty: 0 RF: 0 exenatide microspheres 2 mg/0.65 mL Pen Injector 2 mg SUBCUT TH RF: 0 nystatin [Nyamyc] 100,000 unit/gram powder 1 applic topical BID PRN (Reason: Rash) RF: 0 clotrimazole 1 % cream 1 applic topical BID PRN (Reason: Rash) RF: 0 spironolactone 25 mg tablet 12.5 mg PO DAILY RF: 0 furosemide 20 mg tablet 20 mg PO DAILY RF: 0 Primary Care Provider: Doretha Brown Referrals: Doretha Brown MD [Primary Care Provider] - Disposition Disposition: Home, Self Care
[2021-09-15 00:06] LABS: Bedside Glucose 372 mg/dL (70-110)
[2021-09-15 00:11] LABS: Absolute Neutrophil Count 11.5 X10^3/uL (2.0-7.7); Basophil# 0.02 X10^3/uL; Basophil% 0.1 % (0-1); Eosinophil# 0.01 X10^3/uL; Eosinophils% 0.1 % (0-5); Hematocrit 33.5 % (40-54); Hemoglobin 10.7 g/dL (13.0-16.5); Lymphocyte % 8.7 % (19-41); Mean Corp Hgb Conc 31.9 g/dL (32-36); Mean Corpuscular Volume 87.7 fL (80-94); Mean Platelet Vol. 11.4 fl (6.2-12.0); Monocyte# 0.94 X10^3/uL; Monocyte% 6.8 % (0-10); NRBC Flagged by Analyzer 0 % (0-5); Neutrophil # 11.53 X10^3/uL (2.7-7.7); Neutrophil % 83.7 % (47-70); Platelet Count 256 K/mm3 (150-450); RBC Distribution Width CV 12.2 % (11.6-14.6); RBC Distribution Width SD 39.4 fl (35.1-43.9); Red Blood Count 3.82 M/mm3 (4.6-6.2); White Blood Count 13.8 K/mm3 (4.4-11.0)
[2021-09-15 00:21] LABS: Anion Gap 5 (5-15); BUN 27 mg/dL (7-18); Calcium,Total 9.1 mg/dL (8.5-10.1); Chloride 97 mmol/L (98-107); EST Glomerular Filtration Rate 50 mL/min (>60); Est Glom Filt Rate - Afr Amer 61 mL/min (>60); Estimated Creatinine Clearance 52.72 ml/min; Glucose 383 mg/dL (74-106); Potassium 4.6 mmol/L (3.5-5.1); Sodium Level 136 mmol/L (136-145)
[2021-09-15] MEDS: Insulin Lispro 100 UNIT/ML INSULN.PEN 15 UNIT SC (01:56)
[2021-09-15 02:41] LABS: Bedside Glucose 347 mg/dL (70-110)
[2021-09-15 03:06] VITALS: BP 147/89; RESP 20; O2SAT 94
== END 2021-09-15 03:07 | disposition home or self-care (01) ==
PROVIDERS: Emergency Provider Student in an Organized Health Care Education/Training Program; PCP Internal Medicine
DX: E11.65 Type 2 diabetes mellitus with hyperglycemia (principal); E66.9 Obesity, unspecified; Z68.39 Body mass index [BMI] 39.0-39.9, adult; F32.9 Major depressive disorder, single episode, unspecified; F41.9 Anxiety disorder, unspecified; I11.0 Hypertensive heart disease with heart failure; I25.10 Atherosclerotic heart disease of native coronary artery without angina pectoris; I50.9 Heart failure, unspecified; E11.51 Type 2 diabetes mellitus with diabetic peripheral angiopathy without gangrene; J44.9 Chronic obstructive pulmonary disease, unspecified; K21.9 Gastro-esophageal reflux disease without esophagitis; M10.9 Gout, unspecified; I25.2 Old myocardial infarction; G43.909 Migraine, unspecified, not intractable, without status migrainosus; G47.30 Sleep apnea, unspecified; Z87.01 Personal history of pneumonia (recurrent); Z86.19 Personal history of other infectious and parasitic diseases; Z87.442 Personal history of urinary calculi; Z95.5 Presence of coronary angioplasty implant and graft; Z79.4 Long term (current) use of insulin; Z79.899 Other long term (current) drug therapy
CPT/HCPCS: 80048; 82962; 85025; 96372; 99284; A4216

== ENCOUNTER → 2021-09-19 12:27 | Outpatient (CLI) | payer MEDICARE, MEDICAID, SELFPAY ==
--- NOTE | 2021-09-19 12:30 | EKG12_ITS ---
Test Reason : CARDIAC ARRYTHMIA Blood Pressure : / mmHG Vent. Rate : 072 BPM Atrial Rate : 072 BPM P-R Int : 196 ms QRS Dur : 098 ms QT Int : 434 ms P-R-T Axes : 092 002 035 degrees QTc Int : 475 ms Sinus rhythm with marked sinus arrhythmia Otherwise normal ECG Confirmed by ARAMIS JOHNS, MAURO ([id number]), editor map SHARAN DOE ([id number]) on 09/23/2021 10:48:12 AM Referred By: Rubio Dobson Confirmed By:MAURO SELF MD
== END ==
PROVIDERS: PCP Internal Medicine; Referring Provider Nurse Practitioner Family; Visit Provider Nurse Practitioner Family
DX: I49.9 Cardiac arrhythmia, unspecified (principal)
CPT/HCPCS: 93005

== ENCOUNTER 2021-10-02 11:38 | Inpatient (IN) | payer MEDICARE, MEDICAID, SELFPAY ==
[2021-10-02] VITALS (23 sets, daily range): BP systolic 99–187; BP diastolic 58–97; PULSE 61–107; RESP 11–28; TEMP 36.4–38.2; O2SAT 91–100; BMI 39.7; BMI 38.5
--- NOTE | 2021-10-02 12:02 | RAD_ITS ---
STUDY: X-RAY CHEST REASON FOR EXAM: Male, 61 years old. Dyspnea TECHNIQUE: Single AP portable view of the chest. COMPARISON: Comparison is made with prior study dated 09/02/2021. FINDINGS: EKG electrodes are seen. Consolidation in the right lower lobe and right upper lobe with elevation of the right hemidiaphragm. Patchy infiltrate in the posterior segment of the left lower lobe. Normal size heart. Normal mediastinum and pat. Normal visualized pulmonary arteries. Normal visualized aortic arch and descending thoracic aorta. There are diffuse degenerative changes of the visualized thoracic spine. Normal visualized ribs, clavicles, and shoulders. There is no demonstrated abnormality of the visualized soft tissue structures of the upper abdomen. RAD/Chest 1 View (Portable) IMPRESSION: Consolidation in the right upper and right lower lobes as well as in the posterior medial segment of the left lower lobe. Electronically Signed: Den Carver MD at 12:40 EDT , Service support ,
--- NOTE | 2021-10-02 12:02 | EKG12_ITS ---
Test Reason : SOB Blood Pressure : / mmHG Vent. Rate : 097 BPM Atrial Rate : 090 BPM P-R Int : 000 ms QRS Dur : 090 ms QT Int : 360 ms P-R-T Axes : 000 015 016 degrees QTc Int : 457 ms Atrial fibrillation Abnormal ECG Confirmed by NOAH JOHNS, DANNIE ([id number]), research editor SHARAN DOE ([id number]) on 10/06/2021 10:14:53 A M Referred By: Rubio Dobson Confirmed By:CAMILA ZAMORA MD
--- NOTE | 2021-10-02 12:03 | ED.VIS.DYS ---
HPI History of Present Illness Chief Complaint: Shortness of Breath Informant: spouse/S.O. and EMS Narrative Narrative: 61-year-old male chronically on home oxygen presents the emergency department shortness of breath. Patient reportedly woke up feeling short of breath and not feeling well. states that he has a history of recurrent aspiration pneumonia. Patient began to have some increased shortness of breath and cough yesterday. He attempted to go to a psychiatric appointment this morning but was found on the floor of the office. EMS notes that he has been 70% on 4 L. Patient has a moist rhonchorous cough. Also noted by nursing to have temperature of 100.5. [facility] Medical History Acute gout Amputation of one or more toes Anxiety Anxiety and depression Arrhythmia Aspiration into airway Aspiration pneumonia Bronchiectasis with (acute) exacerbation CAD (coronary artery disease) Chest pain Congestive heart failure (CHF) COPD (chronic obstructive pulmonary disease) CPAP (continuous positive airway pressure) dependence Depression Diabetes Gastroparesis GERD (gastroesophageal reflux disease) GERD (gastroesophageal reflux disease) Hypertension Kidney stones Kidney stones Migraines Mood disorder Myocardial infarct Non-smoker On home oxygen therapy PAD (peripheral artery disease) Pneumonia Pulmonary nodule, left Sepsis Severe sepsis Sleep apnea Type 2 diabetes mellitus Vision loss of left eye Wound of left lower extremity Home Medications acetaminophen 1,000 mg PO QHS PRN PRN 02/11/21 [History Last Taken 09/01/21] atorvastatin 80 mg PO QHS 02/11/21 [History Last Taken 09/01/21] carvedilol 25 mg PO BID 02/11/21 [History Last Taken 09/02/21] clopidogrel 75 mg PO DAILY 02/11/21 [History Last Taken 09/02/21] finasteride 5 mg PO DAILY 02/11/21 [History Last Taken 09/02/21] fluoxetine 40 mg PO DAILY 02/11/21 [History Last Taken 09/02/21] insulin detemir U-100 28 unit SQ QHS 02/11/21 [History Last Taken 09/01/21] insulin lispro See Protocol SQ TIDCM 02/11/21 [History Last Taken 09/02/21] isosorbide mononitrate 30 mg PO DAILY 02/11/21 [History Last Taken 09/02/21] nitroglycerin 0.4 mg SL Q5M PRN 02/11/21 [History Last Taken 02/08/21] pantoprazole 20 mg PO DAILY 02/11/21 [History Last Taken 09/02/21] trazodone 100 mg PO QHS #0 tab 07/02/21 [Rx Last Taken 09/01/21] albuterol sulfate 90 mcg/actuation aerosol inhaler 2 puff INHALATION Q4H PRN #8.5 g 07/24/21 [Rx Last Taken 09/01/21] clotrimazole 1 applic TOPICAL BID PRN 08/06/21 [History Last Taken Unknown] nystatin [Nyamyc] 1 applic TOPICAL BID PRN 08/06/21 [History Last Taken Unknown] buspirone 7.5 mg tablet 7.5 mg PO TID tab 08/15/21 [History Last Taken 09/02/21] fluoxetine 20 mg capsule 20 mg PO DAILY cap 08/15/21 [History Last Taken 09/02/21] furosemide 20 mg PO DAILY 09/02/21 [History Last Taken 09/02/21] spironolactone 12.5 mg PO DAILY 09/02/21 [History Last Taken 09/02/21] pregabalin 75 mg capsule 75 mg PO BID #60 cap 09/17/21 [Rx Last Taken Unknown] doxycycline hyclate 100 mg capsule 100 mg PO BID #60 cap 09/19/21 [Rx Last Taken Unknown] metoclopramide HCl 5 mg tablet 5 mg PO BID #60 tab 09/19/21 [Rx Last Taken Unknown] alprazolam 0.5 mg tablet 0.5 mg PO BID PRN #60 tab 09/25/21 [Rx Last Taken Unknown] glimepiride 2 mg tablet 2 mg PO BID #60 tab 09/25/21 [Rx Last Taken Unknown] linaclotide 72 mcg capsule 72 mcg PO DAILY #30 cap 09/25/21 [Rx Last Taken Unknown] losartan 50 mg tablet 25 mg PO DAILY #90 tab 09/25/21 [Rx Last Taken Unknown] Allergy/AdvReac Type Severity Reaction Status Date / Time allopurinol AdvReac Vomiting Verified 10/02/21 11:46 Influenza Virus Vaccines AdvReac Vomiting Verified 10/02/21 11:46 pneumococcal vaccine AdvReac Vomiting Verified 10/02/21 11:46 Family History Mother Diabetes Heart disease CHF Father Heart disease [place]/CAD Myocardial infarction Surgical History H/O lithotripsy History of ankle surgery History of coronary artery stent placement Hx of toe surgery S/P peripheral artery angioplasty with stent placement S/P thyroid surgery Social History household members: spouse housing: apartment Smoking Status: Never smoker alcohol intake: never substance use type: does not use ROS ROS ED Constitutional Constitutional ED: Reports chills and fever(s); Denies weight loss Eyes Eyes: Denies change in vision or diplopia ENT ENT ED: Denies ear pain, rhinorrhea or sore throat Cardiovascular Cardiovascular: Denies chest pain, orthopnea, palpitations or racing heartbeat Respiratory/Chest Respiratory/Chest: Reports cough and dyspnea; Denies orthopnea Gastrointestinal Gastrointestinal: Denies abdominal pain, diarrhea, nausea or vomiting Genitourinary Genitourinary ED: Denies dysuria, hematuria or urinary frequency Musculoskeletal Musculoskeletal: Denies arthralgias or myalgias Integumentary Denies abscess or rash Neurologic Neurologic: Denies headache(s) or weakness Psychiatric Psychiatric: Denies anxiety, depression, suicidal ideation or suicidal thoughts Endocrine Endocrinology: Denies polydipsia, polyphagia or polyuria Allergic/Immunologic Allergic/Immunologic ED: Denies mouth swelling, tongue swelling or urticaria EXAM Physical Exam Const Vital Signs: 10/02/21 11:39 10/02/21 12:25 Temperature 100.5 F H Temperature Source Temporal Pulse Rate 107 H 97 Respiratory Rate 27 H 28 H Respiratory Pattern Tachypnea Blood Pressure 187/97 H Blood Pressure Mean 127 Pulse Ox 91 96 Oxygen Delivery Method Non-Rebreather Oxygen Flow Rate (L/min) 15 Fraction of Inspired Oxygen (FIO2) 40 Positive well nourished, well developed and obese General Appearance ED: well developed Nutritional Appearance: obese HEENT Reports normocephalic, head/scalp atraumatic, TM's clear and moist mucous membranes atraumatic Tympanic Membrane ED: Yes TM's clear Eyes PERRL and EOMs intact bilaterally Neck no lymphadenopathy, supple and no JVD Resp Resp Narrative: Patient is tachypneic rhonchi at the bases Auscultation: diminished lung sounds Cardio regular rhythm and no murmurs Rate: tachycardic GI normal to inspection, nondistended, normoactive bowel sounds and non-tender Palpation: soft Back/Spine no CVA tenderness and normal ROM Extremity normal to inspection Extremity Narrative: Patient having rigors General Extremety ED: Negative for edema General Extremity: Negative for edema Neuro CN's II-XII intact bilaterally Sensorium / Orientation: lethargic Motor Exam: strength 5/5 throughout and general weakness Psych mental status grossly normal Mood & Affect: Negative for depressed or tearful Skin no rashes or lesions noted and no wounds MDM MDM MDM Narrative Medical decision making narrative: Interpretation of the chest x-ray is infiltrative changes of the right lung. White count 13.1 hemoglobin 11.9 platelets are 164. Anion gap 5 BUN 21 with a creatinine of 1.48. Glucose 206. Lactic acid is elevated 2.1. Troponin high-sensitivity at 12. Patient received gentle hydration, Zosyn and vancomycin as well as being placed on BiPAP. He also received aerosol treatment and Tylenol for fever. Patient will require admission for further care. Lab Data Attestation: I reviewed the patient's lab results. Labs: Laboratory Results - last 24 hr 10/02/21 10/02/21 10/02/21 12:00 12:00 12:00 WBC 13.1 H RBC 4.29 L Hgb 11.9 L Hct 39.0 L MCV 90.9 MCH 27.7 MCHC 30.5 L RDW Std Deviation 42.5 RDW Coeff of James 13.0 Plt Count 164 MPV 11.5 Immature Gran % (Auto) 0.400 Neut % (Auto) 86.9 H Lymph % (Auto) 8.5 L [place] % (Auto) 2.7 Eos % (Auto) 1.3 Baso % (Auto) 0.2 Absolute Neuts (auto) 11.4 H Absolute Lymphs (auto) 1.11 Nucleated RBC % 0 PT 13.9 INR 1.1 APTT 23.8 L Sodium 144 Potassium 3.8 Chloride 105 Carbon Dioxide 34.0 H Anion Gap 5 BUN 21 H Creatinine 1.48 H Estim Creat Clear Calc 53.43 Est GFR (MDRD) Af Amer 62 Est GFR (MDRD) Non-Af 51 L BUN/Creatinine Ratio 14.2 Glucose 206 H Lactic Acid Calcium 8.4 L Total Bilirubin 0.40 AST 19 ALT 21 Alkaline Phosphatase 135 H Troponin I High Sens 12 Total Protein 7.5 Albumin 3.1 L Globulin 4.4 H Albumin/Globulin Ratio 0.7 L 10/02/21 12:00 WBC RBC Hgb Hct MCV MCH MCHC RDW Std Deviation RDW Coeff of James Plt Count MPV Immature Gran % (Auto) Neut % (Auto) Lymph % (Auto) [place] % (Auto) Eos % (Auto) Baso % (Auto) Absolute Neuts (auto) Absolute Lymphs (auto) Nucleated RBC % PT INR APTT Sodium Potassium Chloride Carbon Dioxide Anion Gap BUN Creatinine Estim Creat Clear Calc Est GFR (MDRD) Af Amer Est GFR (MDRD) Non-Af BUN/Creatinine Ratio Glucose Lactic Acid 2.1 H* Calcium Total Bilirubin AST ALT Alkaline Phosphatase Troponin I High Sens Total Protein Albumin Globulin Albumin/Globulin Ratio Radiography Diagnostic Testing: Clinical Impression(s) from Imaging Studies Chest X-Ray 10/02/21 12:02 IMPRESSION: Consolidation in the right upper and right lower lobes as well as in the posterior medial segment of the left lower lobe. Electronically Signed: Den Carver MD at 12:40 EDT , Service support , EKG Initial EKG: Attestation: I personally reviewed and interpreted this EKG as follows: Comments: Sinus rhythm with a first-degree AV block with a ventricular rate at 97 bpm with PACs. Discharge Plan Dx/Rx/DC Orders Clinical Impression: Aspiration pneumonia, Acute hypoxemic respiratory failure, Severe sepsis Disposition Disposition: Acute Care Hospital [facility]
[2021-10-02] MEDS: Ondansetron 4 MG/2 ML Vial IV (12:22)
[2021-10-02] MEDS: 0.9% Normal Saline 1,000 ML 150 ML IV (12:22)
[2021-10-02] MEDS: Acetaminophen 500 MG Tablet 1000 MG PO (12:27)
[2021-10-02 12:31] LABS: International Normalized Ratio 1.1; Partial Thromboplast Time 23.8 Seconds (24.1-36.2); Prothrombin Time (Protime)PT. 13.9 SECONDS (11.7-14.9)
[2021-10-02 12:32] LABS: Absolute Lymphocyte Count 1.11 X10^3/uL (0.83-4.51); Absolute Neutrophil Count 11.4 X10^3/uL (2.0-7.7); Basophil# 0.02 X10^3/uL; Basophil% 0.2 % (0-1); Eosinophil# 0.17 X10^3/uL; Eosinophils% 1.3 % (0-5); Hemoglobin 11.9 g/dL (13.0-16.5); Lymphocyte # 1.11 X10^3/ul (0.83-4.51); Lymphocyte % 8.5 % (19-41); Mean Corp Hgb Conc 30.5 g/dL (32-36); Mean Corpuscular Hgb 27.7 pg (27.0-32.0); Mean Corpuscular Volume 90.9 fL (80-94); Mean Platelet Vol. 11.5 fl (6.2-12.0); Monocyte# 0.35 X10^3/uL; Monocyte% 2.7 % (0-10); NRBC Flagged by Analyzer 0 % (0-5); Neutrophil # 11.37 X10^3/uL (2.7-7.7); Neutrophil % 86.9 % (47-70); Platelet Count 164 K/mm3 (150-450); RBC Distribution Width SD 42.5 fl (35.1-43.9); Red Blood Count 4.29 M/mm3 (4.6-6.2); White Blood Count 13.1 K/mm3 (4.4-11.0)
[2021-10-02] MEDS: Ipratropium/Albuterol Sulfate 3 ML AMPUL.NEB INHALATION ×2 (12:37→23:33)
[2021-10-02 12:40] LABS: ALB/GLOB Ratio 0.7 RATIO (0.9-2.4); AST(SGOT) 19 U/L (15-37); Alanine Aminotransfer ALT/SGPT 21 U/L (16-61); Albumin, Serum 3.1 g/dL (3.2-5.0); Alkaline Phosphatase 135 U/L (45-117); Anion Gap 5 (5-15); BUN 21 mg/dL (7-18); BUN/Creat Ratio 14.2 RATIO (10-20); Calcium,Total 8.4 mg/dL (8.5-10.1); Chloride 105 mmol/L (98-107); Creatinine, Serum 1.48 mg/dL (0.70-1.30); EST Glomerular Filtration Rate 51 mL/min (>60); Est Glom Filt Rate - Afr Amer 62 mL/min (>60); Estimated Creatinine Clearance 53.43 ml/min; Globulin 4.4 g/dL (2.2-4.2); Glucose 206 mg/dL (74-106); Potassium 3.8 mmol/L (3.5-5.1); Protein, Total 7.5 g/dL (6.4-8.2); Sodium Level 144 mmol/L (136-145); Troponin-I HS 12 pg/mL (3.0-78.0)
[2021-10-02 13:04] LABS: Lactic Acid 2.1 mmol/L (0.4-1.9)
--- NOTE | 2021-10-02 13:29 | HP.PCM.HOS_ITS ---
HPI - General General Date of Admission: 10/02/21 Date of Service: 10/02/21 Chief Complaint: Hypoxic respiratory failure, Fatigue, malaise, fever. 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 Rodriguez secondary to severe relux potentially contributing with recent GI follow-up with at that time start on Linzess given constipation history, doxycycline as well as Reglan for concerns for gastroparesis and PCP re-evaluation on 09/25/21 who now re-presents to the [facility] ED on 10/02/21 with 2 days of worsening dypsnea, malaise, fatigue, more notable upon awakening on day of ED presentation with EMS call noted to be initially 70% on 4L NC with evidence moist rhonchorous with fever prompting ED transition. Work-up in the ED included T 100.5, heart rate 107 initially, BP 187/97, respiratory rate 2728, initially 91% on a nonrebreather transition to BiPAP with 96% on 40% FiO2, CBC with WBC 13.1, hemoglobin 11.9, platelet 164 with left shift, coags with PTT 23.8 otherwise not marked appearing, CMP with carbon oxide 34, BUN/creatinine 21/1.48, glucose 206, lactic acid 2.1, alk phos 135 otherwise not marked. Paddock profile, high-sensitivity troponin 12, chest x-ray with consolidation in the right upper and right lower l obe as well as in the posterior medial segment of the left lower lobe, blood culture x2 pending per ED. In the ED patient administered IV vanc and zosyn. Discussed case upon admission with Dr. Lanier who agreed with CTPA to further elucidate and assure no evidence also of PE which Dr. Bryan has ordered to obtain en route to the ICU. [facility] Medical History Acute gout Amputation of one or more toes Anxiety Anxiety and depression Arrhythmia Aspiration into airway Aspiration pneumonia Bronchiectasis with (acute) exacerbation CAD (coronary artery disease) Chest pain Congestive heart failure (CHF) COPD (chronic obstructive pulmonary disease) CPAP (continuous positive airway pressure) dependence Depression Diabetes Gastroparesis GERD (gastroesophageal reflux disease) GERD (gastroesophageal reflux disease) Hypertension Kidney stones Kidney stones Migraines Mood disorder Myocardial infarct Non-smoker On home oxygen therapy PAD (peripheral artery disease) Pneumonia Pulmonary nodule, left Sepsis Severe sepsis Sleep apnea Type 2 diabetes mellitus Vision loss of left eye Wound of left lower extremity Home Medications acetaminophen 1,000 mg PO QHS PRN PRN 02/11/21 [History Last Taken 09/01/21] atorvastatin 80 mg PO QHS 02/11/21 [History Last Taken 10/01/21] carvedilol 25 mg PO BID 02/11/21 [History Last Taken 10/02/21] clopidogrel 75 mg PO DAILY 02/11/21 [History Last Taken 10/02/21] finasteride 5 mg PO DAILY 02/11/21 [History Last Taken 10/02/21] fluoxetine 40 mg PO DAILY 02/11/21 [History Last Taken 10/02/21] insulin detemir U-100 28 unit SQ QHS 02/11/21 [History Last Taken 10/01/21] insulin lispro See Protocol SQ TIDCM 02/11/21 [History Last Taken 10/01/21] isosorbide mononitrate 30 mg PO DAILY 02/11/21 [History Last Taken 10/02/21] nitroglycerin 0.4 mg SL Q5M PRN 02/11/21 [History Last Taken 02/08/21] pantoprazole 20 mg PO DAILY 02/11/21 [History Last Taken 10/02/21] trazodone 100 mg PO QHS #0 tab 07/02/21 [Rx Last Taken 10/01/21] albuterol sulfate 90 mcg/actuation aerosol inhaler 2 puff INHALATION Q4H PRN #8.5 g 07/24/21 [Rx Last Taken 10/01/21] clotrimazole 1 applic TOPICAL BID PRN 08/06/21 [History Last Taken 3 Days Ago ~09/29/21] nystatin [Nyamyc] 1 applic TOPICAL BID PRN 08/06/21 [History Last Taken 3 Days Ago ~09/29/21] buspirone 7.5 mg tablet 7.5 mg PO TID tab 08/15/21 [History Last Taken 10/02/21] fluoxetine 20 mg capsule 20 mg PO DAILY cap 08/15/21 [History Last Taken 10/02/21] furosemide 20 mg PO DAILY 09/02/21 [History Last Taken 10/02/21] spironolactone 12.5 mg PO DAILY 09/02/21 [History Last Taken 10/02/21] pregabalin 75 mg capsule 75 mg PO BID #60 cap 09/17/21 [Rx Last Taken 10/02/21] doxycycline hyclate 100 mg capsule 100 mg PO BID #60 cap 09/19/21 [Rx Last Taken 10/02/21] metoclopramide HCl 5 mg tablet 5 mg PO BID #60 tab 09/19/21 [Rx Last Taken 10/02/21] alprazolam 0.5 mg tablet 0.5 mg PO BID PRN #60 tab 09/25/21 [Rx Last Taken 10/02/21] glimepiride 2 mg tablet 2 mg PO BID #60 tab 09/25/21 [Rx Last Taken 10/02/21] linaclotide 72 mcg capsule 72 mcg PO DAILY #30 cap 09/25/21 [Rx Last Taken 3 Days Ago ~09/29/21] losartan 50 mg tablet 25 mg PO DAILY #90 tab 09/25/21 [Rx Last Taken 10/02/21] Allergy/AdvReac Type Severity Reaction Status Date / Time allopurinol AdvReac Vomiting Verified 10/02/21 11:46 Influenza Virus Vaccines AdvReac Vomiting Verified 10/02/21 11:46 pneumococcal vaccine AdvReac Vomiting Verified 10/02/21 11:46 Family History Mother Diabetes Heart disease CHF Father Heart disease IN/CAD Myocardial infarction Surgical History H/O lithotripsy History of ankle surgery History of coronary artery stent placement Hx of toe surgery S/P peripheral artery angioplasty with stent placement S/P thyroid surgery Social History household members: spouse housing: apartment Smoking Status: Never smoker alcohol intake: never substance use type: does not use ROS ROS Narrative Admission Review of Systems: CONSTITUTIONAL: No weight loss, + fever, chills, weakness or fatigue. HEENT: Eyes: No visual loss, blurred vision, double vision or yellow sclerae. Ears, Nose, Throat: No hearing loss, sneezing, congestion, runny nose or sore throat. SKIN: No rash or itching, lesions, wounds. CARDIOVASCULAR: No chest pain, chest pressure or chest discomfort, palpitations, edema, orthopnea, syncopal events. RESPIRATORY: + shortness of breath, cough with clear-white thick sputum, No wheezing, hemoptysis. GASTROINTESTINAL: + anorexia, loose stools after linzess start-->now firming in ED, No nausea, vomiting, abdominal pain, melena, BRBPR. GENITOURINARY: No dysuria, frequency, urgency or retention. NEUROLOGICAL: No headache, dizziness, syncope, paralysis, ataxia, numbness or tingling in the extremities, focal weakness, change in bowel or bladder control, seizure. MUSCULOSKELETAL: + muscle, back pain, joint pain or stiffness. HEMATOLOGIC: + anemia, bleeding or bruising. LYMPHATICS: No enlarged nodes. No history of splenectomy. PSYCHIATRIC: + history of depression or anxiety. ENDOCRINOLOGIC: No reports of sweating, cold or heat intolerance. No polyuria or polydipsia. ALLERGIES: No history of asthma, hives, eczema or rhinitis. Vital Signs Vital Signs Vital Signs: 10/02/21 11:39 10/02/21 12:25 Temperature 100.5 F H Temperature Source Temporal Pulse Rate 107 H 97 Respiratory Rate 27 H 28 H Respiratory Pattern Tachypnea Blood Pressure 187/97 H Blood Pressure Mean 127 Pulse Ox 91 96 Oxygen Delivery Method Non-Rebreather Oxygen Flow Rate (L/min) 15 Fraction of Inspired Oxygen (FIO2) 40 Weight Weight: 276 lb 14.409 oz Body Mass Index (BMI) 39.7 Physical Exam Narrative Physical Examination: General: Awake, alert, oriented to self, place and recent events, fatigued and ill-appearing, seated upright in the ED bed, BiPAP in place, respiratory distress is lessening since initial ED presentation, notes feeling somewhat improved, diaphoretic. Skin: Normal color, normal turgor, no icterus, no cyanosis except occasional staged ecchymoses, abrasion. HEENT: AT/NC, EOMI, PERRLA, dry MM, BiPAP in place, no carotid bruits obvious however difficult given BiPAP in place with referred sounds, unable to discern JVD secondary to very thickened neck and currently on BiPAP. Lungs: Significantly diminished, rhonchorous, right greater than left, base to mid, respiratory distress is lessening, BiPAP in place. Heart: Tachycardic with regular rhythm; no gallop, rub audible. Abdomen: Soft, morbidly obese, NTTP, no obvious distention but given habitus difficult to assess, distant hyperactive bowel sounds, unable to discern HSM secondary to habitus. Extremities: No cyanosis, no clubbing, or any marked bilateral lower extremity edema. Neurological: Patient awake, alert, oriented as noted, cognitive function improving, near baseline intact; pupils equally reactive to light and accommodation, cranial nerves II-XII grossly normal, moving all 4 extremities, no focal deficits, strength severely global decrease secondary to acute pre sentation. Psychiatric: Affect appears fatigued, ill-appearing, respiratory distress lessening, no acute evidence of depressive or anxiety feelings. Results Lab / Micro Data Result Diagrams: 10/02/21 12:00 10/02/21 12:00 Labs: Laboratory Results - last 24 hr 10/02/21 12:00: WBC 13.1 H, RBC 4.29 L, Hgb 11.9 L, Hct 39.0 L, MCV 90.9, MCH 27.7, MCHC 30.5 L, RDW Std Deviation 42.5, RDW Coeff of James 13.0, Plt Count 164, MPV 11.5, Immature Gran % (Auto) 0.400, Neut % (Auto) 86.9 H, Lymph % (Auto) 8.5 L, [place] % (Auto) 2.7, Eos % (Auto) 1.3, Baso % (Auto) 0.2, Absolute Neuts (auto) 11.4 H, Absolute Lymphs (auto) 1.11, Nucleated RBC % 0 10/02/21 12:00: PT 13.9, INR 1.1, APTT 23.8 L 10/02/21 12:00: Sodium 144, Potassium 3.8, Chloride 105, Carbon Dioxide 34.0 H, Anion Gap 5, BUN 21 H, Creatinine 1.48 H, Estim Creat Clear Calc 53.43, Est GFR (MDRD) Af Amer 62, Est GFR (MDRD) Non-Af 51 L, BUN/Creatinine Ratio 14.2, Glucose 206 H, Calcium 8.4 L, Total Bilirubin 0.40, AST 19, ALT 21, Alkaline Phosphatase 135 H, Troponin I High Sens 12, Total Protein 7.5, Albumin 3.1 L, Globulin 4.4 H, Albumin/Globulin Ratio 0.7 L 10/02/21 12:00: Lactic Acid 2.1 H* Radiology Impression Chest X-Ray 10/02/21 12:02 IMPRESSION: Consolidation in the right upper and right lower lobes as well as in the posterior medial segment of the left lower lobe. Electronically Signed: Den Carver MD at 12:40 EDT , Service support , Assessment & Plan Assessment/Plan (1) Acute hypoxemic respiratory failure: PLAN: The patient is a 61 y/o M w/ PMHx: Congenital Right Lung D evelopment, Chronic anemia, HTN, HLD, CAD s/p PCI x 2, PAD s/p BL LE stenting (2 each side), HFpEF, Anxiety and Depression, BPH, Diabetes mellitus type II, GERD, Chronic COPD, MARY on CPAP q HS, recently admitted 09/02/21-09/05/21 with evaluation/treatment for BL Aspiration PNA with suspected silent aspiration with concurrently pneumonitis/Bronchiectasis, Esophageal dysphagia discharged on 7 additional day regimen of augmentin with upper endoscopy with Dr. Rodriguez secondary to severe relux potentially contributing with recent GI follow-up with at that time start on Linzess given constipation history, doxycycline as well as Reglan for concerns for gastroparesis and PCP re-evaluation on 09/25/21 who now re-presents to the [facility] ED on 10/02/21 with 2 days of worsening dypsnea, malaise, fatigue, more notable upon awakening on day of ED presentation. 1. Acute Hypoxic Respiratory Failure with Persistant evidence BL PNA/Consolidations, possible Aspiration, Possible GN/GP: Will admit to ICU, continue BIPAP, continue consultation with Dr. Lanier ICU, maintain on fall and aspiration precautions, NPO except medications pending de-escalation off BIPAP as well as awaiting repeat speech evaluation, ATC duonebs, PRN albuterol, maintained on IV Zosyn and Vancomycin w/ pending MRSA screen with de-escalation as able, HOB, IS parameters w/ pending sputum cultures and urine antigens. COVID pending. Pending CTPA upon admission. PT/OT, CM consulted for discharge planning. 2. Chronic oropharyngeal dysphagia with reflux and gastroparesis concerns: Patient recently reevaluated by Dr. Rodriguez, started on Linzess with constipation however notes he has had some loose stools but is having more formed stools now in the ED, also at that time was placed on Reglan for gastroparesis in addition to doxycycline. Given broad-spectrum antibiotic therapy we will temporarily hold doxycycline, continue Reglan once diet reinitiated as n.p.o. currently, hold Linzess. 3. CKD stage IIIa: Admission BUN/Cr 21/1.48, prior baseline creatinine 1.3-1.4, stable, trend. 4. HFpEF: We will continue plavix, statin, Coreg, losartan, lasix regimen. Will obtain BNP. Judiciously hydrating given history. 5. CAD, PAD: Patient status post PCI x 2 as well as bilateral lower extremity stenting with 2 stents on each side, unclear specific locations, will continue plavix, statin therapy, coreg, losartan regimen. 6. Hypertension: We will continue patient Coreg, isosorbide, losartan, lasix with hold parameters, PRN IV hydralazine. 7. Hyperlipidemia: We will continue patient on statin therapy. 8. Diabetes mellitus type II with peripheral neuropathy: Will continue home insulin regimen, ADA diet, accu checks w/ ISS, continue Lyrica. 9. Chronic normocytic anemia: Admission hemoglobin 11.9, similar to baseline, stable, trend. 10. Anxiety and depression: We will continue patient home fluoxetine and BuSpar as well as alprazolam with hold for sedation to avoid withdrawal. 11. Chronic COPD: Patient not on any routine inhalers, given presentation will maintain on ATC duonebs and will have PRN albuterol, encourage HOB, IS. 12. Obesity: Weight loss and lifestyle changes encouraged. 13. GERD: Continue home PPI. 14. MARY: CPAP nightly; however, currently as noted #1 maintained on BIPAP. 15. DVT Prophylaxis: SCDs, lovenox. 16. CODE status: Patient [place] is his and living will is currently in place. Discussed CODE status at length including difference between FULL code, DNR-CCA and DNR-CC status. Following discussions about the differences in these status, requested continuation of Full Code status. Advanced Care Planning Face to Face Time: 16 minutes. Charges/Coding Visit Charges Inpatient E&M: 02818 Init Hosp L3 Procedures Hospitalists Procedures: 19184 Advncd Care Plan 30 Min
--- NOTE | 2021-10-02 13:31 | CT_ITS ---
STUDY: CTA CHEST REASON FOR EXAM: Male, 61 years old. Acute respiratory failure RADIATION DOSAGE (If Supplied By Facility): CTDIvol = ( 23.35 ) mGy, DLP = ( 577.85 ) mGycm TECHNIQUE: The examination was performed with the intravenous administration of IV 100mL Isovue-370. Post-processing of the angiographic images was performed, with multiplanar reformation and 3D reconstruction. Individualized dose optimization techniques were used for this CT. COMPARISON: Comparison is made with prior examinations dated 09/02/2021. FINDINGS: Multiple venous collaterals are seen overlying the right hemithorax. Normal enhancement of the main pulmonary artery and right and left pulmonary arteries. Normal enhancement of the bilateral peripheral pulmonary arteries. There is no demonstrated pulmonary embolism. Normal thoracic aorta and visualized great vessels. There is no demonstrated aortic dissection. There are calcifications of the coronary arteries. There are visualized mediastinal lymph nodes, which are within normal size limits, and with normal morphology. Normal hilar regions. Normal visualized trachea and bronchi. There is elevation of the right hemidiaphragm. There is evidence of a consolidation in the posterior aspect of the right upper lobe. Dense consolidation in the right lower lobe and in the right middle lobe. Minimal scarring in the lingular segment of the left temporal. Normal pleura. Normal chest wall structures. There are degenerative changes of thoracic spine. Tiny nonobstructive calculus in the upper pole of the left kidney. CT/CTA Chest W/WO Contrast IMPRESSION: Consolidation involving the right upper and right lower lobes as well as the right middle lobe. No evidence of pulmonary embolism. Electronically Signed: Den Carver MD at 14:49 EDT , Service support ,
--- NOTE | 2021-10-02 13:34 | NURSING ---
ICU WHITE PNEUMONIA
--- NOTE | 2021-10-02 13:51 | ED.RN ---
Patient given 500mg tylenol for fever. Patient was being placed on bipap and was nauseated at the time. 2nd 500mg tablet withheld due to patient condition. physician (Dr. Gonzalez) aware.
[2021-10-02 13:54] LABS: Bacteria 0 SEEN /hpf (None Seen); Mucous, Urine 0 SEEN /hpf (<or=2+); Red Blood Cells-Urine 0 SEEN /hpf (0-5); Squamous Epithelial Cells - UA 0 SEEN /hpf (0-5); White Blood Cells 0 SEEN /hpf (0-5)
[2021-10-02 13:55] LABS: Color, Urine Yellow (Yellow); Glucose, Dipstick 250 mg/dl (Normal); Ketone-Dipstick Negative (Negative); Leukocyte Esterase-Dipstick Negative /ul (Negative); Nitrite-Dipstick Negative (Negative); Occult Blood-Urine Negative /ul (Negative); Protein-Dipstick 30 mg/dl (Negative); Urine Bilirubin Dipstick Negative (Negative); Urine Clarity Clear (Clear); Urine Urobilinogen Normal (Normal)
[2021-10-02 14:31] LABS: Magnesium 1.5 mg/dL (1.6-2.6)
[2021-10-02 14:54] LABS: BNP,B-Type NATRIURETIC PEPTIDE 122.7 pg/mL (0-100)
--- NOTE | 2021-10-02 15:07 | CON.PCM.CC_ITS ---
Assessment & Plan Assessment/Plan (1) Aspiration pneumonia: PLAN: RECOMMENDATIONS: 1. Wean supplemental oxygen to maintain saturations at or above 90%. 2. Maintain aspiration precautions. 3. Patient to remain n.p.o., pending reevaluation by speech therapy. 4. Continue antimicrobials. 5. Tentatively planning for bronchoscopy tomorrow afternoon. IMPRESSIONS: 1. Acute on chronic hypoxemic respiratory failure The patient has a history of frequent hospital admissions, with concern for recurrent aspiration pneumonia. He has been identified as having silent aspiration in the past. Chest imaging once again demonstrates significant right-sided consolidation. The patient has once again been placed on antimicrobials and BiPAP. Given his recurrent hospital admissions and lack of infectious etiologies identified in the past, we will plan to proceed with bronchoscopy to obtain BAL tomorrow. The patient is in agreement. At the c urrent time, the patient has been weaned to nasal cannula supplemental oxygen at 2 L/min, which is his baseline. I would recommend that he remain n.p.o., pending reevaluation by speech therapy once again. 2. Chronic oropharyngeal dysphagia with reflux The patient has been seen by GI in the past with concern for gastroparesis. The patient denies any overt heartburn or reflux symptoms at the current time. Plan to continue outpatient treatment regimen. The patient may require reevaluation by GI while admitted to the hospital. 3. History of coronary artery disease/heart failure with preserved ejection fraction/chronic kidney disease/hypertension/hyperlipidemia/diabetes Complicates care, management, recovery and prognosis. Continue home medications as indicated. This note was generated with [employer] dictation software. It may contain incorrect words, spelling, and punctuation that were not noted in checking the note before signing. HPI Consult Data Date of Consult: 10/03/21 HPI Narrative Reason for Consultation: Acute on chronic hypoxemic respiratory failure HPI Narrative: The patient is a 61-year-old male, with a history as outlined below, who presented to the emergency department on October 02 with worsening shortness of breath, malaise and fatigue. The patient has a known history of restrictive lung disease and chronic hypoxemic respiratory failure with a baseline 2 L/min oxygen requirement. The patient has a history of frequent hospitalizations, most recently in August 2021, which was felt to be secondary to aspiration pneumonia. Modified barium swallow at the beginning of June revealed evidence of silent aspiration. The patient has been treated with multiple rounds of antimicrobials in the past. The patient was recently evaluated by gastroenterology as well and underwent endoscopy. The patient has been maintained on once daily PPI therapy along with Reglan for possible gastroparesis. On presentation to the emergency department, the patient was noted to have a low-grade fever and was hypertensive. Laboratory evaluation revealed a white blood cell count of 13,000. Chemistry profile was notable for a bicarbonate of 34 and creatinine of 1.48. Lactate was elevated to 2.1. Magnesium was low at 1.5. Urine analysis was unremarkable. Rapid coronavirus antigen testing was negative. Cultures were obtained. The patient was placed on antimicrobials. Ultimately, due to the patient's respiratory status, he was placed on BiPAP therapy. CTA chest was obtained which showed no evidence for pulmonary embolism. A significant amount of consolidation was noted throughout the right hemithorax. The patient was subsequently transferred to the medical intensive care unit for further management. On arrival to the ICU, the patient was immediately able to be removed from BiPAP and placed on nasal cannula supplemental oxygen at 2 L/min. [facility] Medical History Acute gout Amputation of one or more toes Anxiety Anxiety and depression Arrhythmia Aspiration into airway Aspiration pneumonia Bronchiectasis with (acute) exacerbation CAD (coronary artery disease) Chest pain Congestive heart failure (CHF) COPD (chronic obstructive pulmonary disease) CPAP (continuous positive airway pressure) dependence Depression Diabetes Gastroparesis GERD (gastroesophageal reflux disease) GERD (gastroesophageal reflux disease) Hypertension Kidney stones Kidney stones Migraines Mood disorder Myocardial infarct Non-smoker On home oxygen therapy PAD (peripheral artery disease) Pneumonia Pulmonary nodule, left Sepsis Severe sepsis Sleep apnea Type 2 diabetes mellitus Vision loss of left eye Wound of left lower extremity Home Medications acetaminophen 1,000 mg PO QHS PRN PRN 02/11/21 [History Last Taken 09/01/21] atorvastatin 80 mg PO QHS 02/11/21 [History Last Taken 10/01/21] carvedilol 25 mg PO BID 02/11/21 [History Last Taken 10/02/21] clopidogrel 75 mg PO DAILY 02/11/21 [History Last Taken 10/02/21] finasteride 5 mg PO DAILY 02/11/21 [History Last Taken 10/02/21] fluoxetine 40 mg PO DAILY 02/11/21 [History Last Taken 10/02/21] insulin detemir U-100 28 unit SQ QHS 02/11/21 [History Last Taken 10/01/21] insulin lispro See Protocol SQ TIDCM 02/11/21 [History Last Taken 10/01/21] isosorbide mononitrate 30 mg PO DAILY 02/11/21 [History Last Taken 10/02/21] nitroglycerin 0.4 mg SL Q5M PRN 02/11/21 [History Last Taken 02/08/21] pantoprazole 20 mg PO DAILY 02/11/21 [History Last Taken 10/02/21] trazodone 100 mg PO QHS #0 tab 07/02/21 [Rx Last Taken 10/01/21] albuterol sulfate 90 mcg/actuation aerosol inhaler 2 puff INHALATION Q4H PRN #8.5 g 07/24/21 [Rx Last Taken 10/01/21] clotrimazole 1 applic TOPICAL BID PRN 08/06/21 [History Last Taken 3 Days Ago ~09/29/21] nystatin [[facility]] 1 applic TOPICAL BID PRN 08/06/21 [History Last Taken 3 Days Ago ~09/29/21] buspirone 7.5 mg tablet 7.5 mg PO TID tab 08/15/21 [History Last Taken 10/02/21] fluoxetine 20 mg capsule 20 mg PO DAILY cap 08/15/21 [History Last Taken 10/02/21] furosemide 20 mg PO DAILY 09/02/21 [History Last Taken 10/02/21] spironolactone 12.5 mg PO DAILY 09/02/21 [History Last Taken 10/02/21] pregabalin 75 mg capsule 75 mg PO BID #60 cap 09/17/21 [Rx Last Taken 10/02/21] doxycycline hyclate 100 mg capsule 100 mg PO BID #60 cap 09/19/21 [Rx Last Taken 10/02/21] metoclopramide HCl 5 mg tablet 5 mg PO BID #60 tab 09/19/21 [Rx Last Taken 10/02/21] alprazolam 0.5 mg tablet 0.5 mg PO BID PRN #60 tab 09/25/21 [Rx Last Taken 10/02/21] glimepiride 2 mg tablet 2 mg PO BID #60 tab 09/25/21 [Rx Last Taken 10/02/21] linaclotide 72 mcg capsule 72 mcg PO DAILY #30 cap 09/25/21 [Rx Last Taken 3 Days Ago ~09/29/21] losartan 50 mg tablet 25 mg PO DAILY #90 tab 09/25/21 [Rx Last Taken 10/02/21] Allergy/AdvReac Type Severity Reaction Status Date / Time allopurinol AdvReac Vomiting Verified 10/02/21 11:46 Influenza Virus Vaccines AdvReac Vomiting Verified 10/02/21 11:46 pneumococcal vaccine AdvReac Vomiting Verified 10/02/21 11:46 Family History Mother Diabetes Heart disease CHF Father Heart disease [place]/CAD Myocardial infarction Surgical History H/O lithotripsy History of ankle surgery History of coronary artery stent placement Hx of toe surgery S/P peripheral artery angioplasty with stent placement S/P thyroid surgery Social History household members: spouse housing: apartment Smoking Status: Never smoker alcohol intake: never substance use type: does not use ROS Constitutional Constitutional: Reports fatigue and malaise; Denies fever(s) Eyes Eyes: Denies blurry vision or change in vision ENT HEENT: Reports dizziness; Denies headache(s) Cardiovascular Cardiovascular: Reports dizziness and dyspnea Respiratory/Chest Respiratory/Chest: Reports dyspnea Gastrointestinal Gastrointestinal: Reports diarrhea Genitourinary Genitourinary: Denies difficulty urinating, dysuria or flank pain Musculoskeletal Musculoskeletal: Denies arthralgias or back pain Integumentary Integumentary: Denies lesions, rash or skin ulcer Neurologic Neurologic: Denies abnormal gait or abnormal speech Psychiatric Psychiatric: Denies anxiety or depression Endocrine Endocrinology: Reports fatigue Hematologic/Lymphatic Hematologic/Lymphatic: Denies easy bleeding or easy bruising Physical Exam Const alert and no apparent distress General Appearance: cooperative Nutritional Appearance: obese HEENT normocephalic and head/scalp atraumatic Eyes PERRL, EOMs intact bilaterally and conjunctivae normal Neck supple General: trachea midline Chest inspection of chest normal Resp normal respiratory effort Effort and Inspection: able to speak in complete sentences Auscultation: rhonchi and diminished lung sounds Cardio S1 normal heart sound and S2 normal heart sound Rate: tachycardic GI normal to inspection, nondistended, normoactive bowel sounds Extremity no clubbing, cyanosis or edema Skin no rashes or lesions noted Neuro CN's II-XII intact bilaterally, moves all extremities and no focal motor deficits Psych cooperative and affect normal Lab / Micro Data Result Diagrams: 10/03/21 03:20 10/03/21 03:20 Labs: Laboratory Results - last 24 hr 10/02/21 12:00: WBC 13.1 H, RBC 4.29 L, Hgb 11.9 L, Hct 39.0 L, MCV 90.9, MCH 27.7, MCHC 30.5 L, RDW Std Deviation 42.5, RDW Coeff of James 13.0, Plt Count 164, MPV 11.5, Immature Gran % (Auto) 0.400, Neut % (Auto) 86.9 H, Lymph % (Auto) 8.5 L, [place] % (Auto) 2.7, Eos % (Auto) 1.3, Baso % (Auto) 0.2, Absolute Neuts (auto) 11.4 H, Absolute Lymphs (auto) 1.11, Nucleated RBC % 0 10/02/21 12:00: PT 13.9, INR 1.1, APTT 23.8 L 10/02/21 12:00: Sodium 144, Potassium 3.8, Chloride 105, Carbon Dioxide 34.0 H, Anion Gap 5, BUN 21 H, Creatinine 1.48 H, Estim Creat Clear Calc 53.43, Est GFR (MDRD) Af Amer 62, Est GFR (MDRD) Non-Af 51 L, BUN/Creatinine Ratio 14.2, Glucose 206 H, Calcium 8.4 L, Total Bilirubin 0.40, AST 19, ALT 21, Alkaline Phosphatase 135 H, Troponin I High Sens 12, Total Protein 7.5, Albumin 3.1 L, Gl obulin 4.4 H, Albumin/Globulin Ratio 0.7 L 10/02/21 12:00: Lactic Acid 2.1 H* 10/02/21 12:00: Magnesium 1.5 L 10/02/21 12:00: B-Natriuretic Peptide 122.7 H 10/02/21 13:45: Urine Color Yellow, Urine Clarity Clear, Urine pH 6.0, Ur Specific [place] 1.020, Urine Protein 30 H, Urine Glucose (UA) 250 H, Urine Ketones Negative, Urine Occult Blood Negative, Urine Nitrite Negative, Urine Bilirubin Negative, Urine Urobilinogen Normal, Ur Leukocyte Esterase Negative, Urine RBC 0 SEEN, Urine WBC 0 SEEN, Ur Squamous Epith Cells 0 SEEN, Urine Bacteria 0 SEEN, Urine Mucus 0 SEEN Micro: Microbiology 10/02/21 13:25 Nasal Secretion SARS-CoV-2 Antigen (Rapid) - Final Radiology Impression Chest X-Ray 10/02/21 12:02 IMPRESSION: Consolidation in the right upper and right lower lobes as well as in the posterior medial segment of the left lower lobe. Electronically Signed: Den Carver MD at 12:40 EDT , Service support , Chest CTA 10/02/21 13:31 IMPRESSION: Consolidation involving the right upper and right lower lobes as well as the right middle lobe. No evidence of pulmonary embolism. Electronically Signed: Den Carver MD at 14:49 EDT , Service support , Charges/Coding Visit Charges Inpatient E&M: 14870 Init Hosp L3
[2021-10-02 16:13] LABS: Reflex Lactate? Y
--- NOTE | 2021-10-02 16:16 | PCM.RX.CS ---
Consult Pharmacy has been consulted to manage selected antiobiotic: Vancomycin Type of Consult: New start Suspected Infection: Pneumonia Labs: Sodium 144 mmol/L (136-145) 10/02/21 12:00 Potassium 3.8 mmol/L (3.5-5.1) 10/02/21 12:00 Chloride 105 mmol/L (98-107) 10/02/21 12:00 Carbon Dioxide 34.0 mmol/L (21.0-32.0) H 10/02/21 12:00 Anion Gap 5 (5-15) 10/02/21 12:00 BUN 21 mg/dL (7-18) H 10/02/21 12:00 Creatinine 1.48 mg/dL (0.70-1.30) H 10/02/21 12:00 Est GFR (MDRD) Af Amer 62 mL/min (>60) 10/02/21 12:00 Est GFR (MDRD) Non-Af 51 mL/min (>60) L 10/02/21 12:00 BUN/Creatinine Ratio 14.2 RATIO (10-20) 10/02/21 12:00 Glucose 206 mg/dL (74-106) H 10/02/21 12:00 Microbiology: Microbiology 10/02/21 13:25 Nasal Secretion SARS-CoV-2 Antigen (Rapid) - Final Goal Trough: 15-20 mcg/mL Pharmacy Plan for Drug Dosing: NEW START IV VANCOMYCIN Consulting Physician: Dr. Gonzalez Indication: Pneumonia Goal Trough: 15-20 SrCr: 1.48 CrCl: 67 mL/min (using AdjBW) Comments: Had 2g IV x1 in ED 10/02/21 @1345 Vancomcyin Dose: 1500mg IV Q12hr to start 10/03/21 @0200 Pending Level: 10/04/21 @0130, prior to 4th total dose of vancomycin per protocol Pharmacy Service will continue to monitor and adjust dosing as required.
[2021-10-02] MEDS: 0.9% Normal Saline 1,000 ML 100 ML IV (16:31)
[2021-10-02 17:04] LABS: Lactic Acid 1.6 mmol/L (0.4-1.9)
[2021-10-02 17:56] LABS: Bedside Glucose 147 mg/dL (70-110)
[2021-10-02 18:34] LABS: Procalcitonin 7.85 ng/mL (0.00-0.09)
[2021-10-02 19:58] LABS: M R Staph aureus DNA By PCR Negative (Negative); Probe Check PASS; Specimen Processing Control PASS
[2021-10-02] MEDS: busPIRone 15 MG TABLET 7.5 MG PO (20:57)
[2021-10-02] MEDS: Carvedilol 25 MG Tablet PO (20:58)
[2021-10-02] MEDS: Atorvastatin Calcium 80 MG Tablet PO (20:58)
[2021-10-02] MEDS: traZODone 100 MG Tablet PO (20:58)
[2021-10-02] MEDS: Enoxaparin 40 MG/0.4 ML Syringe SC (20:59)
[2021-10-02] MEDS: Pantoprazole Sodium 20 MG Tablet PO (20:59)
[2021-10-02] MEDS: Pregabalin 75 MG Capsule PO (21:01)
[2021-10-02] MEDS: Insulin Lispro 100 UNIT/ML INSULN.PEN SC (22:48)
[2021-10-02 22:50] LABS: Bedside Glucose 165 mg/dL (70-110)
[2021-10-03] VITALS (23 sets, daily range): BP systolic 105–174; BP diastolic 53–126; PULSE 58–77; RESP 11–24; TEMP 36.7–37.1; O2SAT 96–100; BMI 39.1
--- NOTE | 2021-10-03 | FLU_PTH ---
PATIENT: REA HANNA LOC: MS3 U#:[id number] AGE/SX: 61/M ROOM: [facility] RE10/02/[address]: Dr. Casa Helton MD : 1960 BED: 1 DIS: 10/04/2021 SPEC #: [id number] RECD: 10/03/21 13:39 STATUS: SOUT REQ #: [id number] MARJORIE: 10/03/21 00:[address]: Stefano Lanier DEPT: CYTOLOGY RECD BY: Charles Rosado ENTERED: 10/03/21 13:40 SP TYPE: Fluid OTHR DR: MD Dr. Stefano Guardado DO Dr. Efewongbe Oleghe, MD Dr. Prakash Chand, MD Tissues: A - Lung, NOS B - Lung, NOS Procedures: PC (control) Special Stain Group II Special Stain Group I Surgery Specimen Level IV AFB Stain (control) GMS Stain (control) Cytospin Fluid Comments: @ Ordering doctor for SSII edited from to [email or web address] Vidal by BAIRON at 10/03/21 1502 @ Ordering doctor for SUIV edited from to [email or web address] Vidal by BAIRON at 10/03/21 1502 @ Ordering doctor for CYSPIN edited from to [email or web address] Vidal by BAIRON at 10/03/21 1502 @ Submitting doctor edited from to [email or web address] Vidal by BAIRON at 10/03/21 1502 HEADER OPERATION: Bronchoscopy with BAL PRE-OP DIAGNOSIS: Abnormal chest CT TISSUE SUBMITTED: A ? Bronchial wash, B ? BAL RML DIAGNOSIS CYTOLOGY A. Bronchial wash fluid (cytospin and cell block): Negative for malignant cells. See comment. B. BAL, RML fluid (cytospin and cell block): Negative for malignant cells. See comment. SJ:rg 10/06/2021 COMMENT A & B. Special stains for acid fast bacilli, pneumocystis carinii and fungi are negative for organisms; matched controls are appropriate. Correlation with clinical, radiologic findings and appropriate follow up are necessary. CYTOLOGY STUDY Slides are reviewed. CYTOLOGY GROSS A - Received is 20 ml of light pink cloudy fluid labeled with the patient's name and and designated per the requisition as bronchial wash. Submitted for cytology preparation including cell block. B - Received is 20 ml of red cloudy fluid labeled with the patient's name and and designated per the requisition as right middle lobe. Submitted for cytology preparation including cell block. / guillermo 10/03/2021 TC:5 CPT: 35688 x2, 50210 x2
[2021-10-03 03:30] LABS: Absolute Lymphocyte Count 1.68 X10^3/uL (0.83-4.51); Absolute Neutrophil Count 17.6 X10^3/uL (2.0-7.7); Basophil# 0.05 X10^3/uL; Basophil% 0.2 % (0-1); Eosinophil# 0.01 X10^3/uL; Hematocrit 31.7 % (40-54); Hemoglobin 9.9 g/dL (13.0-16.5); Lymphocyte # 1.68 X10^3/ul (0.83-4.51); Lymphocyte % 8.1 % (19-41); Mean Corp Hgb Conc 31.2 g/dL (32-36); Mean Corpuscular Hgb 28.1 pg (27.0-32.0); Mean Corpuscular Volume 90.1 fL (80-94); Mean Platelet Vol. 11.4 fl (6.2-12.0); Monocyte# 1.36 X10^3/uL; Monocyte% 6.5 % (0-10); NRBC Flagged by Analyzer 0 % (0-5); Neutrophil # 17.61 X10^3/uL (2.7-7.7); Neutrophil % 84.5 % (47-70); Platelet Count 128 K/mm3 (150-450); RBC Distribution Width CV 13.1 % (11.6-14.6); RBC Distribution Width SD 43.1 fl (35.1-43.9); Red Blood Count 3.52 M/mm3 (4.6-6.2); White Blood Count 20.9 K/mm3 (4.4-11.0)
[2021-10-03 03:47] LABS: ALB/GLOB Ratio 0.6 RATIO (0.9-2.4); AST(SGOT) 12 U/L (15-37); Alanine Aminotransfer ALT/SGPT 17 U/L (16-61); Albumin, Serum 2.5 g/dL (3.2-5.0); Alkaline Phosphatase 69 U/L (45-117); Anion Gap 4 (5-15); BUN 24 mg/dL (7-18); BUN/Creat Ratio 17.4 RATIO (10-20); Calcium,Total 8.2 mg/dL (8.5-10.1); Chloride 106 mmol/L (98-107); Creatinine, Serum 1.38 mg/dL (0.70-1.30); EST Glomerular Filtration Rate 55 mL/min (>60); Est Glom Filt Rate - Afr Amer 67 mL/min (>60); Estimated Creatinine Clearance 57.31 ml/min; Globulin 3.9 g/dL (2.2-4.2); Glucose 141 mg/dL (74-106); Potassium 3.8 mmol/L (3.5-5.1); Protein, Total 6.4 g/dL (6.4-8.2); Sodium Level 143 mmol/L (136-145)
[2021-10-03 06:40] LABS: Bedside Glucose 111 mg/dL (70-110)
--- NOTE | 2021-10-03 06:45 | PN.CC_ITS ---
Assessment & Plan Assessment/Plan (1) Aspiration pneumonia: PLAN: RECOMMENDATIONS: 1. Wean supplemental oxygen to maintain saturations at or above 90%. 2. Maintain aspiration precautions. 3. Patient to remain n.p.o., pending reevaluation by speech therapy. 4. Continue antimicrobials. 5. Plan for bronchoscopy today around noon. 6. The patient is medically stable for transfer out of the intensive care unit. IMPRESSIONS: 1. Acute on chronic hypoxemic respiratory failure The patient has a history of frequent hospital admissions, with concern for recurrent aspiration pneumonia. He has been identified as having silent aspiration in the past. Chest imaging once again demonstrates significant right-sided consolidation. The patient has once again been placed on antimicrobials. Although the patient was initially placed on BiPAP therapy in the ED, he was able to be weaned to nasal cannula oxygen at his baseline. Given his recurrent hospital admissions and lack of infectious etiologies identified in the past, we will plan to proceed with bronchoscopy to obtain BAL. The patient is in agreement. 2. Chronic oropharyngeal dysphagia with reflux The patient has been seen by GI in the past with concern for gastroparesis. The patient denies any overt heartburn or reflux symptoms at the current time. Plan to continue outpatient treatment regimen. The patient may require reevaluation by GI while admitted to the hospital. 3. History of coronary artery disease/heart failure with preserved ejection fraction/chronic kidney disease/hypertension/hyperlipidemia/diabetes Complicates care, management, recovery and prognosis. Continue home medications as indicated. This note was generated with [employer] dictation software. It may contain incorrect words, spelling, and punctuation that were not noted in checking the note before signing. Subjective Subjective The patient was seen and examined at the bedside this morning. Events from the last 24 hours have been reviewed. The patient is currently afebrile, hemodynamically stable and maintaining appropriate oxygen saturations on 2 L/min via nasal cannula. Per nursing report, the patient did well overnight. The patient denies any significant dyspnea or cough this morning. Objective Data Objective Data The patient's most recent lab work, culture data and imaging studies have all been personally reviewed. Respiratory viral panel was negative. Strep and uri ne Legionella antigens were negative. Rapid coronavirus antigen testing was negative. Blood and urine cultures are pending. Vital Signs: Vital Signs Temp Pulse Resp BP Pulse Ox 98.3 F 69 12 164/84 H 97 10/03/21 00:00 10/03/21 06:00 10/03/21 06:00 10/03/21 06:00 10/03/21 06:00 Oxygen Flow Rate (L/min) 2 Oxygen Delivery Method Nasal Cannula Weight: 123.74 kg Body Mass Index (BMI) 38.5 Intake & Output: Intake and Output for Last 24 Hours 10/01/21 10/02/21 10/03/21 23:59 23:59 23:59 Intake Total 1765.83 / 1765.83 840 / 840 Output Total 300 / 300 250 / 250 Balance 1465.83 / 1465.83 590 / 590 Lab / Micro Data Attestation: I reviewed the patient's lab results. Result Diagrams: 10/03/21 03:20 10/03/21 03:20 Labs: Laboratory Results - last 24 hr 10/02/21 12:00: WBC 13.1 H, RBC 4.29 L, Hgb 11.9 L, Hct 39.0 L, MCV 90.9, MCH 27.7, MCHC 30.5 L, RDW Std Deviation 42.5, RDW Coeff of James 13.0, Plt Count 164, MPV 11.5, Immature Gran % (Auto) 0.400, Neut % (Auto) 86.9 H, Lymph % (Auto) 8.5 L, [place] % (Auto) 2.7, Eos % (Auto) 1.3, Baso % (Auto) 0.2, Absolute Neuts (auto) 11.4 H, Absolute Lymphs (auto) 1.11, Nucleated RBC % 0 10/02/21 12:00: PT 13.9, INR 1.1, APTT 23.8 L 10/02/21 12:00: Sodium 144, Potassium 3.8, Chloride 105, Carbon Dioxide 34.0 H, Anion Gap 5, BUN 21 H, Creatinine 1.48 H, Estim Creat Clear Calc 53.43, Est GFR (MDRD) Af Amer 62, Est GFR (MDRD) Non-Af 51 L, BUN/Creatinine Ratio 14.2, Glucose 206 H, Calcium 8.4 L, Total Bilirubin 0.40, AST 19, ALT 21, Alkaline Phosphatase 135 H, Troponin I High Sens 12, Total Protein 7.5, Albumin 3.1 L, Globulin 4.4 H, Albumin/Globulin Ratio 0.7 L 10/02/21 12:00: Lactic Acid 2.1 H* 10/02/21 12:00: Magnesium 1.5 L 10/02/21 12:00: B-Natriuretic Peptide 122.7 H 10/02/21 13:45: Urine Color Yellow, Urine Clarity Clear, Urine pH 6.0, Ur Specific [place] 1.020, Urine Protein 30 H, Urine Glucose (UA) 250 H, Urine Ketones Negative, Urine Occult Blood Negative, Urine Nitrite Negative, Urine Bilirubin Negative, Urine Urobilinogen Normal, Ur Leukocyte Esterase Negative, Urine RBC 0 SEEN, Urine WBC 0 SEEN, Ur Squamous Epith Cells 0 SEEN, Urine Bacteria 0 SEEN, Urine Mucus 0 SEEN 10/02/21 16:25: Lactic Acid 1.6 10/02/21 16:30: MRSA (PCR) Negative 10/02/21 17:46: Procalcitonin 7.85 H 10/02/21 17:53: POC Glucose 147 H 10/02/21 22:46: POC Glucose 165 H 10/03/21 03:20: WBC 20.9 H, RBC 3.52 L, Hgb 9.9 L, Hct 31.7 L, MCV 90.1, MCH 28.1, MCHC 31.2 L, RDW Std Deviation 43.1, RDW Coeff of James 13.1, Plt Count 128 L, MPV 11.4, Immature Gran % (Auto) 0.700, Neut % (Auto) 84.5 H, Lymph % (Auto) 8.1 L, [place] % (Auto) 6.5, Eos % (Auto) 0.0, Baso % (Auto) 0.2, Absolute Neuts (auto) 17.6 H, Absolute Lymphs (auto) 1.68, Nucleated RBC % 0 10/03/21 03:20: Sodium 143, Potassium 3.8, Chloride 106, Carbon Dioxide 33.0 H, Anion Gap 4 L, BUN 24 H, Creatinine 1.38 H, Estim Creat Clear Calc 57.31, Est GFR (MDRD) Af Amer 67, Est GFR (MDRD) Non-Af 55 L, BUN/Creatinine Ratio 17.4, Glucose 141 H, Calcium 8.2 L, Total Bilirubin 0.70, AST 12 L, ALT 17, Alkaline Phosphatase 69, Total Protein 6.4, Albumin 2.5 L, Globulin 3.9, Albumin/Globulin Ratio 0.6 L 10/03/21 06:35: POC Glucose 111 H Micro: Microbiology 10/02/21 15:24 Mucosa - Nose Respiratory Panel (PCR) - Final 10/02/21 13:45 Urine, Clean Catch Legionella Antigen - Final 10/02/21 13:45 Urine, Clean Catch Streptococcus pneumoniae Antigen (M - Final 10/02/21 13:25 Nasal Secretion SARS-CoV-2 Antigen (Rapid) - Final Radiography Diagnostic Testing: Radiology Impression Chest X-Ray 10/02/21 12:02 IMPRESSION: Consolidation in the right upper and right lower lobes as well as in the posterior medial segment of the left lower lobe. Electronically Signed: Den Carver MD at 12:40 EDT , Service support , Chest CTA 10/02/21 13:31 IMPRESSION: Consolidation involving the right upper and right lower lobes as well as the right middle lobe. No evidence of pulmonary embolism. Electronically Signed: Den Carver MD at 14:49 EDT , Service support , Physical Exam Const alert and no apparent distress General Appearance: cooperative Nutritional Appearance: obese HEENT normocephalic and head/scalp atraumatic Eyes PERRL, EOMs intact bilaterally and conjunctivae normal Neck supple General: trachea midline Chest inspection of chest normal Resp normal respiratory effort Effort and Inspection: able to speak in complete sentences Auscultation: rhonchi and diminished lung sounds Cardio S1 normal heart sound and S2 normal heart sound Rate: tachycardic GI normal to inspection, nondistended, normoactive bowel sounds Extremity no clubbing, cyanosis or edema Skin no rashes or lesions noted Neuro CN's II-XII intact bilaterally, moves all extremities and no focal motor deficits Psych cooperative and affect normal Charges/Coding Visit Charges Inpatient E&M: 85910 Subs Hosp L2
[2021-10-03] MEDS: Ipratropium/Albuterol Sulfate 3 ML AMPUL.NEB INHALATION ×2 (07:50→19:05)
--- NOTE | 2021-10-03 07:55 | PN.HOSP_ITS ---
Subjective Subjective Patient has recurrent admissions for aspiration and aspiration pneumonia. He feels sometimes oral secretions getting stuck in throat and cannot cough out. Objective Data Objective Data Vital Signs: Vital Signs Temp Pulse Resp BP Pulse Ox 98.3 F 69 12 164/84 H 97 10/03/21 00:00 10/03/21 06:00 10/03/21 06:00 10/03/21 06:00 10/03/21 06:00 Oxygen Flow Rate (L/min) 2 Oxygen Delivery Method Nasal Cannula Weight: 272 lb 12.8 oz Body Mass Index (BMI) 38.5 Intake & Output: Intake and Output for Last 24 Hours 10/01/21 10/02/21 10/03/21 23:59 23:59 23:59 Intake Total 1765.83 / 1765.83 840 / 840 Output Total 300 / 300 250 / 250 Balance 1465.83 / 1465.83 590 / 590 Lab / Micro Data Result Diagrams: 10/03/21 03:20 10/03/21 03:20 Labs: Laboratory Results - last 24 hr 10/02/21 12:00: WBC 13.1 H, RBC 4.29 L, Hgb 11.9 L, Hct 39.0 L, MCV 90.9, MCH 27.7, MCHC 30.5 L, RDW Std Deviation 42.5, RDW Coeff of James 13.0, Plt Count 164, MPV 11.5, Immature Gran % (Auto) 0.400, Neut % (Auto) 86.9 H, Lymph % (Auto) 8.5 L, [place] % (Auto) 2.7, Eos % (Auto) 1.3, Baso % (Auto) 0.2, Absolute Neuts (auto) 11.4 H, Absolute Lymphs (auto) 1.11, Nucleated RBC % 0 10/02/21 12:00: PT 13.9, INR 1.1, APTT 23.8 L 10/02/21 12:00: Sodium 144, Potassium 3.8, Chloride 105, Carbon Dioxide 34.0 H, Anion Gap 5, BUN 21 H, Creatinine 1.48 H, Estim Creat Clear Calc 53.43, Est GFR (MDRD) Af Amer 62, Est GFR (MDRD) Non-Af 51 L, BUN/Creatinine Ratio 14.2, Glucose 206 H, Calcium 8.4 L, Total Bilirubin 0.40, AST 19, ALT 21, Alkaline Phosphatase 135 H, Troponin I High Sens 12, Total Protein 7.5, Albumin 3.1 L, Globulin 4.4 H, Albumin/Globulin Ratio 0.7 L 10/02/21 12:00: Lactic Acid 2.1 H* 10/02/21 12:00: Magnesium 1.5 L 10/02/21 12:00: B-Natriuretic Peptide 122.7 H 10/02/21 13:45: Urine Color Yellow, Urine Clarity Clear, Urine pH 6.0, Ur Specific [place] 1.020, Urine Protein 30 H, Urine Glucose (UA) 250 H, Urine Ketones Negative, Urine Occult Blood Negative, Urine Nitrite Negative, Urine Bilirubin Negative, Urine Urobilinogen Normal, Ur Leukocyte Esterase Negative, Urine RBC 0 SEEN, Urine WBC 0 SEEN, Ur Squamous Epith Cells 0 SEEN, Urine Bacteria 0 SEEN, Urine Mucus 0 SEEN 10/02/21 16:25: Lactic Acid 1.6 10/02/21 16:30: MRSA (PCR) Negative 10/02/21 17:46: Procalcitonin 7.85 H 10/02/21 17:53: POC Glucose 147 H 10/02/21 22:46: POC Glucose 165 H 10/03/21 03:20: WBC 20.9 H, RBC 3.52 L, Hgb 9.9 L, Hct 31.7 L, MCV 90.1, MCH 28.1, MCHC 31.2 L, RDW Std Deviation 43.1, RDW Coeff of James 13.1, Plt Count 128 L, MPV 11.4, Immature Gran % (Auto) 0.700, Neut % (Auto) 84.5 H, Lymph % (Auto) 8.1 L, [place] % (Auto) 6.5, Eos % (Auto) 0.0, Baso % (Auto) 0.2, Absolute Neuts (auto) 17.6 H, Absolute Lymphs (auto) 1.68, Nucleated RBC % 0 10/03/21 03:20: Sodium 143, Potassium 3.8, Chloride 106, Carbon Dioxide 33.0 H, Anion Gap 4 L, BUN 24 H, Creatinine 1.38 H, Estim Creat Clear Calc 57.31, Est GFR (MDRD) Af Amer 67, Est GFR (MDRD) Non-Af 55 L, BUN/Creatinine Ratio 17.4, Glucose 141 H, Calcium 8.2 L, Total Bilirubin 0.70, AST 12 L, ALT 17, Alkaline Phosphatase 69, Total Protein 6.4, Albumin 2.5 L, Globulin 3.9, Albumin/Globulin Ratio 0.6 L 10/03/21 06:35: POC Glucose 111 H Micro: Microbiology 10/02/21 15:24 Mucosa - Nose Respiratory Panel (PCR) - Final 10/02/21 13:45 Urine, Clean Catch Legionella Antigen - Final 10/02/21 13:45 Urine, Clean Catch Streptococcus pneumoniae Antigen (M - Final 10/02/21 13:25 Nasal Secretion SARS-CoV-2 Antigen (Rapid) - Final Radiography Diagnostic Testing: Radiology Impression Chest X-Ray 10/02/21 12:02 IMPRESSION: Consolidation in the right upper and right lower lobes as well as in the posterior medial segment of the left lower lobe. Electronically Signed: Den Carver MD at 12:40 EDT , Service support , Chest CTA 10/02/21 13:31 IMPRESSION: Consolidation involving the right upper and right lower lobes as well as the right middle lobe. No evidence of pulmonary embolism. Electronically Signed: Den Carver MD at 14:49 EDT , Service support , Assessment & Plan Assessment/Plan (1) Acute hypoxemic respiratory failure: PLAN: The patient is a 61 y/o M with multiple comorbidities and previous modified barium swallow showed silent aspiration came to ER with shortness of breath, dyspnea fatigue. w/ PMHx: Congenital Right Lung Development, Chronic anemia, HTN, HLD, CAD s/p PCI x 2, PAD s/p BL LE stenting (2 each side), HFpEF, Anxiety and Depression, BPH, Diabetes mellitus type II, GERD, Chronic COPD, MARY on CPAP q HS, recently admitted 09/02/21-09/05/21 with evaluation/treatment for BL Aspiration PNA with suspected silent aspiration with concurrently pneumonitis/Bronchiectasis, Esophageal dysphagia discharged on 7 additional day regimen of augmentin with upper endoscopy with Dr. Rodriguez secondary to severe relux potentially contrib uting with recent GI follow-up with at that time start on Linzess given constipation history, doxycycline as well as Reglan for concerns for gastroparesis and PCP re-evaluation on 09/25/21 who now re-presents to the [facility] ED on 10/02/21 with 2 days of worsening dypsnea, malaise, fatigue, more notable u natali awakening on day of ED presentation. 1. Acute hypoxic respiratory failure with bilateral more on right lung consolidation, aspiration pneumonia: Patient was admitted in ICU. Is being transferred to PCU. Was on BiPAP yesterday weaned to nasal cannula. Plan for bronchoscopy today as cultures has been negative in the past. N.p.o., aspiration precaution. On IV Zosyn. Bronchodilator. 2. Chronic oropharyngeal dysphagia with reflux and gastroparesis: Has been evaluated by Dr. Rodriguez. On Linzess for constipation. Was also put on Reglan for gastroparesis. Linzess on hold because of loose stool. 3. CKD stage IIIa: Admission BUN/Cr 21/1.48, prior baseline creatinine 1.3-1.4, stable. Slight improvement in creatinine. 4. Chronic HFpEF: Continue plavix, statin, Coreg, losartan, lasix regimen. BNP 122 on baseline. 5. CAD, PAD: Patient status post PCI x 2 as well as bilateral lower extremity stenting with 2 stents on each side, unclear specific locations, l continue plavix, statin therapy, coreg, losartan regimen. 6. Hypertension: We will continue patient Coreg, isosorbide, losartan, lasix with hold parameters, PRN IV hydralazine. 7. Hyperlipidemia: We will continue patient on statin therapy. 8. Diabetes mellitus type II with peripheral neuropathy: home insulin regimen, ADA diet, accu checks with Humalog sliding scale, continue Lyrica. 9. Chronic normocytic anemia: Admission hemoglobin 11.9, similar to baseline, stable, trend. 10. Anxiety and depression: We will continue patient home fluoxetine and BuSpar as well as alprazolam with hold for sedation to avoid withdrawal. 11. Chronic COPD: Patient not on any routine inhalers, given presentation will maintain on ATC duonebs and will have PRN albuterol, encourage HOB, IS. 12. Obesity: Weight loss and lifestyle changes encouraged. 13. GERD: Continue home PPI. 14. MARY: CPAP nightly; however, currently as noted #1 maintained on BIPAP. 15. DVT Prophylaxis: SCDs, lovenox. 16. CODE status: Patient [place]IN is his and living will. Full code. Patient also has anxiety about his fianc?e. He said she gives him tension and anxiety and wants psychiatrist/psychotherapist help as an outpatient. Total time of the visit including total time spent in counseling or coordination of care, (more than 50% of the total time, spent in obtaining medical information from nurses and other ancillary care providers,explaining to the patient about labs, imaging, diagnosis and management), discussion with consultants, review of labs and imaging is 30 minutes. Charges/Coding Visit Charges Inpatient E&M: 39473 Subs Hosp L3
--- NOTE | 2021-10-03 10:56 | NURSING ---
to bronchoscopy per bed fiance present, report called to pcu will transfer to room 105 after procedure
[2021-10-03] MEDS: Lactated Ringers 1,000 ML 15 ML IV (11:17)
[2021-10-03 11:20] LABS: Bedside Glucose 75 mg/dL (70-110)
--- NOTE | 2021-10-03 11:34 | CASEMGMT ---
Addendum entered by Everardo Lloyd 10/03/21 16:11: Pt has returned to room and is sitting up in recliner chair in room. Awake/alert/oriented. Sig other, She, @ bedside. Discussed discharge planning w/pt. Pt wishes to return home w/Resumption of [facility]. Pt states I'm not going anywhere else but home. Pt states would like to have therapies again w/HHC. Also noted ST eval done and additional ST recommended. Order placed for [facility]: SN. PT/OT, and ST added. TC to Jessica @ [facility] and she was made aware. Discussed CCN w/pt and She and they are interested in CCN. They were made aware CCN would follow after HHC, not while pt receiving HHC services. They voice understanding. Order placed for referral to CCN and TC to [facility] to notify her of same. Pt and state pt has been compliant w/taking all of his prescribed medications except for a new medication Dr Rodriguez placed him on,Linzess (linaclotide), which pt feels is causing diarrhea. Pt has a f/u appt w/Dr Rodriguez 10/31. [facility] recommended Dr Araiza office be notified of issues w/diarrhea and to discuss further recommendations w/him. Pt also has the following appts scheduled: PCP/Dr Brown: 10/09 @ 4:30 PM and [facility] 10/06 @ 1:45 PM. Green sheet placed on chart w/instructions for HHC resumption if pt discharges home over the weekend. Original Note: RN CM readmission note: This is pt's 8th in-patient admission this year, with 2 observation visits, and 7 ED visits. Last admission was from 09/02/21 thru 09/05/21 for aspiration PNA and acute resp insufficiency. Pt discharged home 09/05/21 w/[facility]. See [facility]'s notes by Bettie on 08/07/21 and Perla 09/03/21. Pt was referred to Palliative Care last admission and they did meet w/pt prior to discharge. Per Palliative, they have not been able to make contact w/pt since discharge and pt has not signed on w/Palliative Care yet. They were notified pt has been readmitted to [facility] and they plan to meet w/pt while @ [facility] this admission. TC to Jessica @ [facility] and she was notified of pt's admission to [facility]. She states pt is still active w/them and is receiving SN services only. Pt w/hx of silent aspiration in the past and concern is for recurrent aspiration pneumonia. Pt is currently NPO, pending reevaluation by ST. Plans are also for pt to have bronchoscopy today. Zelalem HECKN RN CM
[2021-10-03] MEDS: Lidocaine 2% Jelly 1 APPLIC Tube (12:02)
[2021-10-03] MEDS: Lidocaine 2% (5ml sdv) 5 ML VIAL.MPF (12:02)
--- NOTE | 2021-10-03 12:29 | OP.BRONCH_ITS ---
Patient Name: Raheem Linda Procedure Date: 10/03/2021 11:56 AM Date of : 1960 Age: 61 Procedure: Bronchoscopy Indications: Abnormal CT scan of chest Providers: Stefano Lanier MD Medicines: Monitored Anesthesia Care Complications: No immediate complications Procedure: Pre-Anesthesia Assessment: - A History and Physical has been performed. Patient meds and allergies have been reviewed. The risks and benefits of the procedure and the sedation options and risks were discussed with the patient. All questions were answered and informed consent was obtained. Patient identification and proposed procedure were verified prior to the procedure by the physician and the nurse in the procedure room. Mental Status Examination: alert and oriented. Airway Examination: normal oropharyngeal airway. Respiratory Examination: poor air movement. CV Examination: normal. ASA Grade Assessment: III - A patient with severe systemic disease. After reviewing the risks and benefits, the patient was deemed in satisfactory condition to undergo the procedure. The anesthesia plan was to use monitored anesthesia care (MAC). Immediately prior to administration of medications, the patient was re-assessed for adequacy to receive sedatives. The heart rate, respiratory rate, oxygen saturations, blood pressure, adequacy of pulmonary ventilation, and response to care were monitored throughout the procedure. The physical status of the patient was re-assessed after the procedure. After I obtained informed consent, the scope was passed under direct vision. Throughout the procedure, the patient's blood pressure, pulse, and oxygen saturations were monitored continuously. The bronchoscope was introduced through the mouth and advanced to the tracheobronchial tree. The procedure was accomplished without difficulty. The patient tolerated the procedure well. Findings: Trachea/Mirella Abnormalities: Notable, mucopurulent, thick secretions were found in the mid trachea and in the lower trachea. Suctioning was performed and the airway was cleared. The suctioned material was sent for cell count, bacterial culture, viral smears & culture, and fungal & AFB analysis and cytology. Right Lung Abnormalities: Notable, mucopurulent, thick secretions were found in the right middle lobe. BAL was performed in the right middle lobe of the lung and sent for cell count, bacterial culture, viral smears & culture, and fungal & AFB analysis and cytology. 60 mL of fluid were instilled. 25 mL were returned. The return was blood-tinged and cloudy. Impression: - Abnormal CT scan of chest - Notable, mucopurulent, thick secretions were found in the mid trachea and in the lower trachea. - Suctioning was performed. - Notable, mucopurulent, thick secretions were found in the right middle lobe. - Bronchoalveolar lavage was performed. Recommendation: - Await BAL results. Procedure Code(s): --- Professional --- 82281, Bronchoscopy, rigid or flexible, including fluoroscopic guidance, when performed; with bronchial alveolar lavage 93104, Bronchoscopy, rigid or flexible, including fluoroscopic guidance, when performed; with bronchial alveolar lavage Diagnosis Code(s): --- Professional --- R09.89, Other specified symptoms and signs involving the circulatory and respiratory systems R93.8, Abnormal findings on diagnostic imaging of other specified body structures CPT copyright 2017 [employer]. All rights reserved. The codes documented in this report are preliminary and upon parboiler review may be revised to meet current compliance requirements. DO Stefano Dalton MD 10/03/2021 12:29:23 PM This report has been signed electronically. Number of Addenda: 0 Note Initiated On: 10/03/2021 11:56 AM
[2021-10-03 12:37] LABS: Acid Fast Stain SEE PATHOLOGY REPORT; Cytology, Body Fluid / CSF SEE PATHOLOGY REPORT
[2021-10-03 12:54] LABS: Acid Fast Stain SEE PATHOLOGY REPORT; Cytology, Body Fluid / CSF SEE PATHOLOGY REPORT
[2021-10-03 14:16] LABS: Appearance/Body Fluid TURBID; Color/Body Fluid PINK; Source- Body Fluid BRONCHIAL LAVAGE
[2021-10-03 14:17] LABS: Red Cell Count/Body Fluid 2981 /mm3; White Blood Count/Body Fluid 1436 /mm3
[2021-10-03 14:18] LABS: Appearance/Body Fluid TURBID; Color/Body Fluid RED; Source- Body Fluid BRONCHIAL LAVAGE
[2021-10-03 14:20] LABS: Red Cell Count/Body Fluid 14065 /mm3; White Blood Count/Body Fluid 1445 /mm3
[2021-10-03] MEDS: Dextrose 50%-Water 25 GM/50 ML DISP.SYRIN IV (14:35)
[2021-10-03] MEDS: 0.9% Saline Lock 10 ML Syringe IV (14:35)
[2021-10-03] MEDS: Spironolactone 25 MG Tablet 12.5 MG PO (14:38)
[2021-10-03] MEDS: Furosemide 20 MG Tablet PO (14:39)
[2021-10-03] MEDS: Losartan Potassium 25 MG Tablet PO (14:39)
[2021-10-03] MEDS: Isosorbide Mononitrate 30 MG Tablet PO (14:39)
[2021-10-03] MEDS: Finasteride 5 MG Tablet PO (14:41)
[2021-10-03] MEDS: Carvedilol 25 MG Tablet PO (14:41)
[2021-10-03] MEDS: Pantoprazole Sodium 20 MG Tablet PO ×2 (14:41→22:19)
[2021-10-03] MEDS: Clopidogrel Bisulfate 75 MG Tablet PO (15:07)
[2021-10-03] MEDS: Enoxaparin 40 MG/0.4 ML Syringe SC ×2 (15:07→22:20)
[2021-10-03] MEDS: Pregabalin 75 MG Capsule PO ×2 (15:09→22:23)
[2021-10-03] MEDS: FLUoxetine 20 MG Capsule 60 MG PO (15:09)
[2021-10-03] MEDS: busPIRone 15 MG TABLET 7.5 MG PO ×2 (15:10→22:21)
[2021-10-03 15:26] LABS: Lymphocytes 84 %; Neutrophil (Segs) 9 %; Other Cell Type/BF 7 %
[2021-10-03 15:27] LABS: Lymphocytes 5 %; Neutrophil (Segs) 95 %
[2021-10-03 15:30] LABS: Bedside Glucose 195 mg/dL (70-110)
[2021-10-03 15:30] LABS: Bedside Glucose 64 mg/dL (70-110)
[2021-10-03 15:31] LABS: Body Fluid QC Type(s) BF1,BF2,BF3
[2021-10-03 15:32] LABS: Body Fluid QC Type(s) BF1,BF2,BF3
[2021-10-03] MEDS: Insulin Lispro 100 UNIT/ML INSULN.PEN SC ×2 (18:30→22:25)
[2021-10-03 18:36] LABS: Bedside Glucose 251 mg/dL (70-110)
[2021-10-03 21:31] LABS: Bedside Glucose 352 mg/dL (70-110)
[2021-10-03] MEDS: Atorvastatin Calcium 80 MG Tablet PO (22:20)
[2021-10-03] MEDS: traZODone 100 MG Tablet PO (22:20)
[2021-10-03] MEDS: Acetaminophen 325 MG Tablet 650 MG PO (23:02)
[2021-10-04 01:50] LABS: Vancomycin, Trough Level 21.1 ug/mL (5.0-15.0)
[2021-10-04 02:23] VITALS: BP 120/77; PULSE 73; RESP 16; TEMP 37; O2SAT 99
--- NOTE | 2021-10-04 03:10 | PCM.RX.CS ---
Consult Pharmacy has been consulted to manage selected antiobiotic: Vancomycin Prior Doses of Antibiotics Received/Current Regimen: Medications Vancomycin HCl 1,500 mg/ (Sodium Chloride) 530 mls @ 250 mls/hr IV Q12H ISHAN Last Admin: 10/04/21 02:12 Dose: 250 mls/hr Documented by: Labs: Sodium 143 mmol/L (136-145) 10/03/21 03:20 Potassium 3.8 mmol/L (3.5-5.1) 10/03/21 03:20 Chloride 106 mmol/L (98-107) 10/03/21 03:20 Carbon Dioxide 33.0 mmol/L (21.0-32.0) H 10/03/21 03:20 Anion Gap 4 (5-15) L 10/03/21 03:20 BUN 24 mg/dL (7-18) H 10/03/21 03:20 Creatinine 1.38 mg/dL (0.70-1.30) H 10/03/21 03:20 Est GFR (MDRD) Af Amer 67 mL/min (>60) 10/03/21 03:20 Est GFR (MDRD) Non-Af 55 mL/min (>60) L 10/03/21 03:20 BUN/Creatinine Ratio 17.4 RATIO (10-20) 10/03/21 03:20 Glucose 141 mg/dL (74-106) H 10/03/21 03:20 Vancomycin Trough 21.1 ug/mL (5.0-15.0) H 10/04/21 01:15 Microbiology: Microbiology 10/03/21 11:00 Wash - Bronchial Wash Gram Stain - Final 10/02/21 13:45 Urine, Midstream Urine Culture - Preliminary Culture exhibits no growth. 10/02/21 15:24 Mucosa - Nose Respiratory Panel (PCR) - Final 10/02/21 13:45 Urine, Clean Catch Legionella Antigen - Final 10/02/21 13:45 Urine, Clean Catch Streptococcus pneumoniae Antigen (M - Final 10/02/21 13:25 Nasal Secretion SARS-CoV-2 Antigen (Rapid) - Final Goal Trough: 15-20 mcg/mL Pharmacy Plan for Drug Dosing: Trough above goal. Recommend to delay time to next dose by roughly 25% and then restart at 1250mg IV q12h and check trough prior to 4th dose per policy. Pharmacy Service will continue to monitor and adjust dosing as required. Follow-Up Labs: Trough Vancomycin - 10/06 @ [id number]
[2021-10-04] MEDS: guaiFENesin 10 ML UDC (200MG/10ML) PO (03:21)
[2021-10-04] MEDS: busPIRone 15 MG TABLET 7.5 MG PO (05:24)
--- NOTE | 2021-10-04 06:22 | PN.CC_ITS ---
Assessment & Plan Assessment/Plan (1) Aspiration pneumonia: PLAN: RECOMMENDATIONS: 1. Wean supplemental oxygen to maintain saturations at or above 90%. 2. Continue antimicrobials to complete 7-day treatment course. 3. Dietary advancement per speech therapy recommendations. 4. Perform walking oximetry study prior to consideration for discharge home. 5. Follow-up in the pulmonary medicine clinic in 2 weeks post discharge. We will review the results of his culture data at that time. IMPRESSIONS: 1. Acute on chronic hypoxemic respiratory failure The patient has a history of frequent hospital admissions, with concern for recurrent aspiration pneumonia. He has been identified as having silent aspiration in the past. Chest imaging once again demonstrates significant right-sided consolidation. The patient was again placed on antimicrobials and underwent bronchoscopy on October 03, which revealed thick tenacious secretions in the mid and distal trachea, along with right middle and lower lobes. BAL was performed, which was neutrophil predominant. Bacterial, viral, fungal and AFB are pending. The patient's acute decompensation leading to his hospitalization may certainly have been secondary to mucous plugging. He was transiently placed on BiPAP but has improved significantly from a respiratory perspective. 2. Chronic oropharyngeal dysphagia with reflux The patient has been seen by GI in the past with concern for gastroparesis. The patient denies any overt heartburn or reflux symptoms at the current time. Plan to continue outpatient treatment regimen. The patient may require reevaluation by GI while admitted to the hospital. 3. History of coronary artery disease/heart failure with preserved ejection fraction/chronic kidney disease/hypertension/hyperlipidemia/diabetes Complicates care, management, recovery and prognosis. Continue home medications as indicated. This note was generated with [employer] dictation software. It may contain incorrect words, spelling, and punctuation that were not noted in checking the note before signing. Subjective Subjective The patient was seen and examined at the bedside this morning. Events from the last 24 hours have been reviewed. The patient is currently afebrile, hemodynamically stable and maintaining appropriate oxygen saturations on 2 L/min via nasal cannula, which is his baseline requirement. The patient did undergo bronchoscopy yesterday with BAL performed, which was neutrophil predominant. The patient was reevaluated by speech therapy yesterday. He is currently receiving an aerosol treatment and reports that he feels well overall. Objective Data Objective Data The patient's most recent lab work, culture data and imaging studies have all been personally reviewed. Respiratory viral panel was negative. Strep and urine Legionella antigens were negative. Rapid coronavirus antigen testing was negative. Blood and urine cultures are pending. Vital Signs: Vital Signs Temp Pulse Resp BP Pulse Ox 98.6 F 73 16 120/77 99 10/04/21 02:23 10/04/21 02:23 10/04/21 02:23 10/04/21 02:23 10/04/21 02:23 Oxygen Flow Rate (L/min) 2 Oxygen Delivery Method Nasal Cannula Weight: 125.1 kg Body Mass Index (BMI) 39.1 Intake & Output: Intake and Output for Last 24 Hours 10/02/21 10/03/21 10/04/21 23:59 23:59 23:59 Intake Total 1765.83 / 1765.83 2270 / 2270 1400 / 1400 Output Total 300 / 300 1200 / 1200 1250 / 1250 Balance 1465.83 / 1465.83 1070 / 1070 150 / 150 Lab / Micro Data Result Diagrams: 10/03/21 03:20 10/03/21 03:20 Labs: Laboratory Results - last 24 hr 10/03/21 06:35: POC Glucose 111 H 10/03/21 11:00: Fluid Source BRONCHIAL LAVAGE, Fluid Color PINK, Fluid Appearance TURBID, Fluid WBC 1436, Fluid RBC 2981, Fluid Tot Cell Count Not Reportable, Fluid Neutrophils 9, Fluid Lymphocytes 84, Fluid Other Cells 7, Fl Pathologist Comment May follow, Fluid Comment 2 Not Reportable 10/03/21 11:00: Fluid Source BRONCHIAL LAVAGE, Fluid Color RED, Fluid Appearance TURBID, Fluid WBC 1445, Fluid RBC 58207, Fluid Tot Cell Count Not Reportable, Fluid Neutrophils 95, Fluid Lymphocytes 5, Fl Pathologist Comment May follow, Fluid Comment 2 Not Reportable 10/03/21 11:16: POC Glucose 75 10/03/21 13:53: POC Glucose 64 L 10/03/21 14:50: POC Glucose 195 H 10/03/21 18:19: POC Glucose 251 H 10/03/21 21:21: POC Glucose 352 H 10/04/21 01:15: Vancomycin Trough 21.1 H Micro: Microbiology 10/03/21 11:00 Wash - Bronchial Wash Gram Stain - Final 10/02/21 13:45 Urine, Midstream Urine Culture - Preliminary Culture exhibits no growth. 10/02/21 15:24 Mucosa - Nose Respiratory Panel (PCR) - Final 10/02/21 13:45 Urine, Clean Catch Legionella Antigen - Final 10/02/21 13:45 Urine, Clean Catch Streptococcus pneumoniae Antigen (M - Final 10/02/21 13:25 Nasal Secretion SARS-CoV-2 Antigen (Rapid) - Final Physical Exam Const alert and no apparent distress General Appearance: cooperative Nutritional Appearance: obese HEENT normocephalic and head/scalp atraumatic Eyes PERRL, EOMs intact bilaterally and conjunctivae normal Neck supple General: trachea midline Chest inspection of chest normal Resp normal respiratory effort Effort and Inspection: able to speak in complete sentences Auscultation: rhonchi and diminished lung sounds Cardio regular rate, regular rhythm, S1 normal heart sound and S2 normal heart sound GI normal to inspection, nondistended, normoactive bowel sounds Extremity no clubbing, cyanosis or edema Skin no rashes or lesions noted Neuro CN's II-XII intact bilaterally, moves all extremities and no focal motor deficits Psych cooperative and affect normal Charges/Coding Visit Charges Inpatient E&M: 49089 Subs Hosp L2
[2021-10-04] MEDS: Insulin Lispro 100 UNIT/ML INSULN.PEN SC (06:35)
[2021-10-04 06:40] LABS: Bedside Glucose 218 mg/dL (70-110)
[2021-10-04] MEDS: Ipratropium/Albuterol Sulfate 3 ML AMPUL.NEB INHALATION (06:50)
[2021-10-04 06:53] VITALS: PULSE 70; RESP 24
--- NOTE | 2021-10-04 07:11 | PCM.PN.HOSP ---
Objective Data Objective Data Vital Signs: Vital Signs Temp Pulse Resp BP Pulse Ox 98.6 F 70 24 H 120/77 99 10/04/21 02:23 10/04/21 06:53 10/04/21 06:53 10/04/21 02:23 10/04/21 02:23 Oxygen Flow Rate (L/min) 2 Oxygen Delivery Method Nasal Cannula Weight: 275 lb 12.772 oz Body Mass Index (BMI) 39.1 Intake & Output: Intake and Output for Last 24 Hours 10/02/21 10/03/21 10/04/21 23:59 23:59 23:59 Intake Total 1765.83 / 1765.83 2385.75 / 2385.75 1400 / 1400 Output Total 300 / 300 1200 / 1200 1250 / 1250 Balance 1465.83 / 1465.83 1185.75 / 1185.75 150 / 150 Lab / Micro Data Result Diagrams: 10/03/21 03:20 10/03/21 03:20 Labs: Laboratory Results - last 24 hr 10/03/21 11:00: Fluid Source BRONCHIAL LAVAGE, Fluid Color PINK, Fluid Appearance TURBID, Fluid WBC 1436, Fluid RBC 2981, Fluid Tot Cell Count Not Reportable, Fluid Neutrophils 9, Fluid Lymphocytes 84, Fluid Other Cells 7, Fl Pathologist Comment May follow, Fluid Comment 2 Not Reportable 10/03/21 11:00: Fluid Source BRONCHIAL LAVAGE, Fluid Color RED, Fluid Appearance TURBID, Fluid WBC 1445, Fluid RBC 68[address], Fluid Tot Cell Count Not Reportable, Fluid Neutrophils 95, Fluid Lymphocytes 5, Fl Pathologist Comment May follow, Fluid Comment 2 Not Reportable 10/03/21 11:16: POC Glucose 75 10/03/21 13:53: POC Glucose 64 L 10/03/21 14:50: POC Glucose 195 H 10/03/21 18:19: POC Glucose 251 H 10/03/21 21:21: POC Glucose 352 H 10/04/21 01:15: Vancomycin Trough 21.1 H 10/04/21 06:33: POC Glucose 218 H Micro: Microbiology 10/03/21 11:00 Wash - Bronchial Wash Gram Stain - Final 10/02/21 13:45 Urine, Midstream Urine Culture - Preliminary Culture exhibits no growth. 10/02/21 15:24 Mucosa - Nose Respiratory Panel (PCR) - Final 10/02/21 13:45 Urine, Clean Catch Legionella Antigen - Final 10/02/21 13:45 Urine, Clean Catch Streptococcus pneumoniae Antigen (M - Final 10/02/21 13:25 Nasal Secretion SARS-CoV-2 Antigen (Rapid) - Final Assessment & Plan Assessment/Plan (1) Acute hypoxemic respiratory failure: PLAN: The patient is a 61 y/o M with multiple comorbidities and previous modified barium swallow showed silent aspiration came to ER with shortness of breath, dyspnea fatigue. 1. Acute hypoxic respiratory failure with bilateral more on right lung consolidation, aspiration pneumonia: Patient was admitted in ICU. Is being transferred to PCU. Was on BiPAP yesterday weaned to nasal cannula. Plan for bronchoscopy today as cultures has been negative in the past. N.p.o., aspiration precaution. On IV Zosyn. Bronchodilator. 10/04: Patient had bronchoscopy yesterday and shows a congested secretions in mid and distal trachea along right mid and lower lobes. 2. Chronic oropharyngeal dysphagia with reflux and gastroparesis: Has been evaluated by Dr. Rodriguez. On Linzess for constipation. Was also put on Reglan for gastroparesis. Linzess on hold because of loose stool. 3. CKD stage IIIa: Admission BUN/Cr 21/1.48, prior baseline creatinine 1.3-1.4, stable. Slight improvement in creatinine. 4. Chronic HFpEF: Continue plavix, statin, Coreg, losartan, lasix regimen. BNP 122 on baseline. 5. CAD, PAD: Patient status post PCI x 2 as well as bilateral lower extremity stenting with 2 stents on each side, unclear specific locations, l continue plavix, statin therapy, coreg, losartan regimen. 6. Hypertension: We will continue patient Coreg, isosorbide, losartan, lasix with hold parameters, PRN IV hydralazine. 7. Hyperlipidemia: We will continue patient on statin therapy. 8. Diabetes mellitus type II with peripheral neuropathy: home insulin regimen, ADA diet, accu checks with Humalog sliding scale, continue Lyrica. 9. Chronic normocytic anemia: Admission hemoglobin 11.9, similar to baseline, stable, trend. 10. Anxiety and depression: We will continue patient home fluoxetine and BuSpar as well as alprazolam with hold for sedation to avoid withdrawal. 11. Chronic COPD: Patient not on any routine inhalers, given presentation will maintain on ATC duonebs and will have PRN albuterol, encourage HOB, IS. 12. Obesity: Weight loss and lifestyle changes encouraged. 13. GERD: Continue home PPI. 14. MARY: CPAP nightly; however, currently as noted #1 maintained on BIPAP. 15. DVT Prophylaxis: SCDs, lovenox. 16. CODE status: Patient [place] is his and living will. Full code. Patient also has anxiety about his fianc?e. He said she gives him tension and anxiety and wants psychiatrist/psychotherapist help as an outpatient. Total time of the visit including total time spent in counseling or coordination of care, (more than 50% of the total time, spent in obtaining medical information from nurses and other ancillary care providers,explaining to the patient about labs, imaging, diagnosis and management), discussion with consultants, review of labs and imaging is 30 minutes.
[2021-10-04 08:16] VITALS: BP 167/78; PULSE 72; RESP 20; TEMP 37.2; O2SAT 97
--- NOTE | 2021-10-04 08:33 | PCM.DC ---
Discharge Instructions Diet Discharge Diet: Low fat / Low cholesterol, 1800 Calorie Control Diet and 2000 mg Sodium Diet Dressing / Incision Call your doctor if you observe: Fever of 101 or Higher, Coldness, Increased Pain, Numbness or Tingling, Change in Color, Inability to urinate, Inability to have a bowel movement, Shortness of breath, Dizziness, Fainting spells, Swelling in the ankles, Chest pain, Prolonged hiccupping, Increased palpitations (irregular heartbeat) and Calf discomfort Follow Up Care Test Results: Test results from this visit will be discussed in further detail at your follow-up appointment, if applicable. Discharge Plan Admission Admit Date/Time: 10/02/21 13:46 Primary Reason for Your Visit: Aspiration pneumonia Attending Provider: Casa Helton Primary Care Provider: Doretha Brown Consulting Providers: Stefano Lanier Discharge Orders/Prescriptions Prescriptions: New amoxicillin-pot clavulanate [Augmentin] 875-125 mg tablet 1 tab PO BID Qty: 10 RF: 0 Continued albuterol sulfate 90 mcg/actuation HFA aerosol inhaler 2 puff inhalation Q4H PRN (Reason: shortness of breath or wheezing) Qty: 8.5 RF: 3 fluoxetine 20 mg capsule 20 mg PO DAILY RF: 0 glimepiride 2 mg tablet 2 mg PO BID Qty: 60 RF: 1 losartan 50 mg tablet 25 mg PO DAILY Qty: 90 RF: 1 alprazolam 0.5 mg tablet 0.5 mg PO BID PRN (Reason: anxiety) Qty: 60 RF: 0 metoclopramide HCl [Reglan] 5 mg tablet 5 mg PO BID Qty: 60 RF: 0 fluoxetine 40 MG capsule 40 mg PO DAILY RF: 0 atorvastatin 80 MG tablet 80 mg PO QHS RF: 0 carvedilol 25 MG tablet 25 mg PO BID RF: 0 isosorbide mononitrate 30 MG tablet extended release 24 hr 30 mg PO DAILY RF: 0 clopidogrel 75 MG tablet 75 mg PO DAILY RF: 0 acetaminophen 500 MG tablet 1,000 mg PO QHS PRN PRN (Reason: Pain 1-10 Or Fever) RF: 0 nitroglycerin 0.4 MG tablet, sublingual 0.4 mg SL Q5M PRN (Reason: Chest Pain) RF: 0 finasteride 5 MG tablet 5 mg PO DAILY RF: 0 insulin lispro 100 UNIT/ML insulin pen See Protocol unit SQ TIDCM RF: 0 buspirone 7.5 mg tablet 7.5 mg PO TID RF: 0 trazodone 100 MG tablet 100 mg PO QHS Qty: 0 RF: 0 nystatin [Nyamyc] 100,000 unit/gram powder 1 applic topical BID PRN (Reason: Rash) RF: 0 clotrimazole 1 % cream 1 applic topical BID PRN (Reason: Rash) RF: 0 spironolactone 25 mg tablet 12.5 mg PO DAILY RF: 0 furosemide 20 mg tablet 20 mg PO DAILY RF: 0 pregabalin [Lyrica] 75 mg capsule 75 mg PO BID Qty: 60 RF: 1 Linzess 72 mcg capsule 72 mcg PO DAILY Qty: 30 RF: 3 Changed pantoprazole 20 MG tablet 40 mg PO DAILY Qty: 0 RF: 0 insulin detemir U-100 100 UNIT/ML insulin pen 30 unit SQ QHS Qty: 0 RF: 0 Discontinued doxycycline hyclate 100 mg capsule 100 mg PO BID Qty: 60 RF: 0 Referrals / Follow Up: Mauricio West MD [STAFF PHYSICIAN] - 11/05/21 1:45 pm (as previously scheduled ) Stefano Lanier DO [STAFF PHYSICIAN] - Within 2 Weeks Doretha Brown MD [Primary Care Provider] - 10/09/21 4:30 pm (as previously scheduled) Arjun Rodriguez DO [STAFF PHYSICIAN] - 10/31/21 (as previously scheduled ) Disposition Disposition (needs filled in before D/C Order can be placed): Home, Self Care
--- NOTE | 2021-10-04 08:41 | PCM.DC.SUM ---
Providers Date of Admission: 10/02/21 Primary Care Physician: Dr. Doretha Brown MD Consultations 10/02/21 15:36 Consult: Envelope Press Operator / Pulmonary Medicine Routine Consulting Provider: Stefano Lanier Reason for Consult: Resp failure, BL consolidations, Aspiration ongoing concerns. EMERGENT Consult: No MD Notified: Yes Date Notified: 10/02/21 Time Notified: 13:49 Method of Notification: called. Reason For Visit: PNEUMONIA Diagnosis Discharge Diagnosis (1) Aspiration pneumonia: Status: Acute Code(s): J69.0 - Pneumonitis due to inhalation of food and vomit Medications at Discharge Home Medications acetaminophen 1,000 mg PO QHS PRN PRN 02/11/21 atorvastatin 80 mg PO QHS 02/11/21 carvedilol 25 mg PO BID 02/11/21 clopidogrel 75 mg PO DAILY 02/11/21 finasteride 5 mg PO DAILY 02/11/21 fluoxetine 40 mg PO DAILY 02/11/21 insulin lispro See Protocol SQ TIDCM 02/11/21 isosorbide mononitrate 30 mg PO DAILY 02/11/21 nitroglycerin 0.4 mg SL Q5M PRN 02/11/21 trazodone 100 mg PO QHS #0 tab 07/02/21 albuterol sulfate 90 mcg/actuation aerosol inhaler 2 puff INHALATION Q4H PRN #8.5 g 07/24/21 clotrimazole 1 applic TOPICAL BID PRN 08/06/21 nystatin [Nyamyc] 1 applic TOPICAL BID PRN 08/06/21 buspirone 7.5 mg tablet 7.5 mg PO TID tab 08/15/21 fluoxetine 20 mg capsule 20 mg PO DAILY cap 08/15/21 furosemide 20 mg PO DAILY 09/02/21 spironolactone 12.5 mg PO DAILY 09/02/21 pregabalin 75 mg capsule 75 mg PO BID #60 cap 09/17/21 metoclopramide HCl 5 mg tablet 5 mg PO BID #60 tab 09/19/21 alprazolam 0.5 mg tablet 0.5 mg PO BID PRN #60 tab 09/25/21 glimepiride 2 mg tablet 2 mg PO BID #60 tab 09/25/21 linaclotide 72 mcg capsule 72 mcg PO DAILY #30 cap 09/25/21 losartan 50 mg tablet 25 mg PO DAILY #90 tab 09/25/21 amoxicillin-pot clavulanate [Augmentin] 1 tab PO BID #10 tab 10/04/21 insulin detemir U-100 30 unit SQ QHS #0 ml 10/04/21 pantoprazole 40 mg PO DAILY #0 tab 10/04/21 Weight / BMI Weight Weight: 275 lb 12.772 oz Body Mass Index (BMI) 39.1 ABG / Lab / Microbiology Data Result Diagrams: 10/03/21 03:20 10/03/21 03:20 Laboratory: Laboratory Results - last 24 hr 10/03/21 11:00: Fluid Source BRONCHIAL LAVAGE, Fluid Color PINK, Fluid Appearance TURBID, Fluid WBC 1436, Fluid RBC 2981, Fluid Tot Cell Count Not Reportable, Fluid Neutrophils 9, Fluid Lymphocytes 84, Fluid Other Cells 7, Fl Pathologist Comment May follow, Fluid Comment 2 Not Reportable 10/03/21 11:00: Fluid Source BRONCHIAL LAVAGE, Fluid Color RED, Fluid Appearance TURBID, Fluid WBC 1445, Fluid RBC 52844, Fluid Tot Cell Count Not Reportable, Fluid Neutrophils 95, Fluid Lymphocytes 5, Fl Pathologist Comment May follow, Fluid Comment 2 Not Reportable 10/03/21 11:16: POC Glucose 75 10/03/21 13:53: POC Glucose 64 L 10/03/21 14:50: POC Glucose 195 H 10/03/21 18:19: POC Glucose 251 H 10/03/21 21:21: POC Glucose 352 H 10/04/21 01:15: Vancomycin Trough 21.1 H 10/04/21 06:33: POC Glucose 218 H Microbiology: Microbiology 10/02/21 13:45 Urine, Midstream Urine Culture - Final Mixed Gram Positive Organisms 10/03/21 11:00 Wash - Bronchial Wash Gram Stain - Final 10/02/21 15:24 Mucosa - Nose Respiratory Panel (PCR) - Final 10/02/21 13:45 Urine, Clean Catch Legionella Antigen - Final 10/02/21 13:45 Urine, Clean Catch Streptococcus pneumoniae Antigen (M - Final 10/02/21 13:25 Nasal Secretion SARS-CoV-2 Antigen (Rapid) - Final D/C Instructions Discharge Diet: Low fat / Low cholesterol, 1800 Calorie Control Diet and 2000 mg Sodium Diet Call your doctor if you observe: Fever of 101 or Higher, Coldness, Increased Pain, Numbness or Tingling, Change in Color, Inability to urinate, Inability to have a bowel movement, Shortness of breath, Dizziness, Fainting spells, Swelling in the ankles, Chest pain, Prolonged hiccupping, Increased palpitations (irregular heartbeat) and Calf discomfort Discharge Plan Admission Admit Date/Time: 10/02/21 13:46 Primary Reason for Your Visit: Aspiration pneumonia Attending Provider: Casa Helton Primary Care Provider: Doretha Brown Consulting Providers: Stefano Lanier Discharge Orders/Prescriptions Prescriptions: New amoxicillin-pot clavulanate [Augmentin] 875-125 mg tablet 1 tab PO BID Qty: 10 RF: 0 Continued albuterol sulfate 90 mcg/actuation HFA aerosol inhaler 2 puff inhalation Q4H PRN (Reason: shortness of breath or wheezing) Qty: 8.5 RF: 3 fluoxetine 20 mg capsule 20 mg PO DAILY RF: 0 glimepiride 2 mg tablet 2 mg PO BID Qty: 60 RF: 1 losartan 50 mg tablet 25 mg PO DAILY Qty: 90 RF: 1 alprazolam 0.5 mg tablet 0.5 mg PO BID PRN (Reason: anxiety) Qty: 60 RF: 0 metoclopramide HCl [Reglan] 5 mg tablet 5 mg PO BID Qty: 60 RF: 0 fluoxetine 40 MG capsule 40 mg PO DAILY RF: 0 atorvastatin 80 MG tablet 80 mg PO QHS RF: 0 carvedilol 25 MG tablet 25 mg PO BID RF: 0 isosorbide mononitrate 30 MG tablet extended release 24 hr 30 mg PO DAILY RF: 0 clopidogrel 75 MG tablet 75 mg PO DAILY RF: 0 acetaminophen 500 MG tablet 1,000 mg PO QHS PRN PRN (Reason: Pain 1-10 Or Fever) RF: 0 nitroglycerin 0.4 MG tablet, sublingual 0.4 mg SL Q5M PRN (Reason: Chest Pain) RF: 0 finasteride 5 MG tablet 5 mg PO DAILY RF: 0 insulin lispro 100 UNIT/ML insulin pen See Protocol unit SQ TIDCM RF: 0 buspirone 7.5 mg tablet 7.5 mg PO TID RF: 0 trazodone 100 MG tablet 100 mg PO QHS Qty: 0 RF: 0 nystatin [Nyamyc] 100,000 unit/gram powder 1 applic topical BID PRN (Reason: Rash) RF: 0 clotrimazole 1 % cream 1 applic topical BID PRN (Reason: Rash) RF: 0 spironolactone 25 mg tablet 12.5 mg PO DAILY RF: 0 furosemide 20 mg tablet 20 mg PO DAILY RF: 0 pregabalin [Lyrica] 75 mg capsule 75 mg PO BID Qty: 60 RF: 1 Linzess 72 mcg capsule 72 mcg PO DAILY Qty: 30 RF: 3 Changed pantoprazole 20 MG tablet 40 mg PO DAILY Qty: 0 RF: 0 insulin detemir U-100 100 UNIT/ML insulin pen 30 unit SQ QHS Qty: 0 RF: 0 Discontinued doxycycline hyclate 100 mg capsule 100 mg PO BID Qty: 60 RF: 0 Referrals / Follow Up: Mauricio West MD [STAFF PHYSICIAN] - 11/05/21 1:45 pm (as previously scheduled ) Stefano Lanier DO [STAFF PHYSICIAN] - Within 2 Weeks Doretha Brown MD [Primary Care Provider] - 10/09/21 4:30 pm (as previously scheduled) Arjun Rodriguez DO [STAFF PHYSICIAN] - 10/31/21 (as previously scheduled ) Disposition Disposition (needs filled in before D/C Order can be placed): Home, Self Care
--- NOTE | 2021-10-04 11:24 | DS.PCM_ITS ---
Providers Date of Admission: 10/02/21 Primary Care Physician: Dr. Doretha Brown MD Consultations 10/02/21 15:36 Consult: Handle Bender / Pulmonary Medicine Routine Consulting Provider: Stefano Lanier Reason for Consult: Resp failure, BL consolidations, Aspiration ongoing co ncerns. EMERGENT Consult: No MD Notified: Yes Date Notified: 10/02/21 Time Notified: 13:49 Method of Notification: called. Reason For Visit: PNEUMONIA Diagnosis Discharge Diagnosis (1) Aspiration pneumonia: Status: Acute Code(s): J69.0 - Pneumonitis due to inhalation of food and vomit Medications at Discharge Home Medications acetaminophen 1,000 mg PO QHS PRN PRN 02/11/21 atorvastatin 80 mg PO QHS 02/11/21 carvedilol 25 mg PO BID 02/11/21 clopidogrel 75 mg PO DAILY 02/11/21 finasteride 5 mg PO DAILY 02/11/21 fluoxetine 40 mg PO DAILY 02/11/21 insulin lispro See Protocol SQ TIDCM 02/11/21 isosorbide mononitrate 30 mg PO DAILY 02/11/21 nitroglycerin 0.4 mg SL Q5M PRN 02/11/21 trazodone 100 mg PO QHS #0 tab 07/02/21 albuterol sulfate 90 mcg/actuation aerosol inhaler 2 puff INHALATION Q4H PRN #8.5 g 07/24/21 clotrimazole 1 applic TOPICAL BID PRN 08/06/21 nystatin [Nyamyc] 1 applic TOPICAL BID PRN 08/06/21 buspirone 7.5 mg tablet 7.5 mg PO TID tab 08/15/21 fluoxetine 20 mg capsule 20 mg PO DAILY cap 08/15/21 furosemide 20 mg PO DAILY 09/02/21 spironolactone 12.5 mg PO DAILY 09/02/21 pregabalin 75 mg capsule 75 mg PO BID #60 cap 09/17/21 metoclopramide HCl 5 mg tablet 5 mg PO BID #60 tab 09/19/21 alprazolam 0.5 mg tablet 0.5 mg PO BID PRN #60 tab 09/25/21 glimepiride 2 mg tablet 2 mg PO BID #60 tab 09/25/21 linaclotide 72 mcg capsule 72 mcg PO DAILY #30 cap 09/25/21 losartan 50 mg tablet 25 mg PO DAILY #90 tab 09/25/21 amoxicillin-pot clavulanate [Augmentin] 1 tab PO BID #10 tab 10/04/21 insulin detemir U-100 30 unit SQ QHS #0 ml 10/04/21 pantoprazole 40 mg PO DAILY #0 tab 10/04/21 Hospital Course Summary of Care Provided Hospital Course: The patient is a 61 y/o M with multiple comorbidities and previous modified barium swallow showed silent aspiration came to ER with shortness of breath, dyspnea fatigue. 1. Acute hypoxic respiratory failure with bilateral more on right lung consolidation, aspiration pneumonia: Patient was admitted in ICU. Is being transferred to PCU. Was on BiPAP at the time of admission in ICU but weaned to nasal cannula. On IV Zosyn. Bronchodilator. On 10/04 Patient had bronchoscopy yesterday and shows a congested secretions in mid and distal trachea along right mid and lower lobes. Patient discharged on Augmentin to complete a total of 7 days of antibiotic. 2. Chronic oropharyngeal dysphagia with reflux and gastroparesis: Has been evaluated by Dr. Rodriguez. On Linzess for constipation. Was also put on Reglan for gastroparesis. Linzess on hold because of loose stool. Continue to follow-up with Dr. Rodriguez. 3. CKD stage IIIa: Admission BUN/Cr /1.48, prior baseline creatinine 1.3-1.4, stable. Slight improvement in creatinine. 4. Chronic HFpEF: Continue plavix, statin, Coreg, losartan, lasix regimen. BNP 122 on baseline. 5. CAD, PAD: Patient status post PCI x 2 as well as bilateral lower extremity stenting with 2 stents on each side, unclear specific locations, l continue plavix, statin therapy, coreg, losartan regimen. 6. Hypertension: continue patient Coreg, isosorbide, losartan, lasix with hold parameters, PRN IV hydralazine. 7. Hyperlipidemia: continue patient on statin therapy. 8. Diabetes mellitus type II with peripheral neuropathy: home insulin regimen, ADA diet, accu checks with Humalog sliding scale, continue Lyrica. 9. Chronic normocytic anemia: Admission hemoglobin 11.9, similar to baseline 10. Anxiety and depression: We will continue patient home fluoxetine and BuSpar as well as alprazolam with hold for sedation to avoid withdrawal. 11. Chronic COPD: Patient has inhalers, nebulization and nebulizer equipment at home. 12. Obesity: Weight loss and lifestyle changes encouraged. 13. GERD: Continue home PPI. 14. MARY: CPAP nightly 15. DVT Prophylaxis: SCDs, lovenox. 16. CODE status: Patient [place] is his and living will. Full code. Patient also has anxiety about his fianc?e. He said she gives him tension and anxiety and wants psychiatrist/psychotherapist help as an outpatient. Discharge medication reconciliation done. Discharge follow-up instructions completed. Discharge process discussed with the patient and all questions were answered to patient's satisfaction. Total time spent, exact 35 minutes on discharge meds reconciliation, examination, coordination of care with nurses and ancillary staff, review of imaging and blood test and discussion with the patient on follow-up instructions Physical Exam Narrative General: Alert, Oriented x3, Cooperative HEENT: Atraumatic, PERRLA, EOMI, Normocephalic Oral: No Gingival or Mucosal Lesions/ Ulcerations Neck: Supple, No JVD, Negative Carotid Bruits Lungs: Air entry is equal in both lungs. No crepitation/rhonchi. On baseline home oxygen Cardiovascular: Regular rate, Regular Rhythm, Normal S1, Normal S2, No murmurs Abdomen: Bowel Sounds Present, Soft, Non Tender, Non-Distended : No renal angle tenderness. No suprapubic tenderness. Extremities: No edema, Capillary Refill Less than 3 Seconds Skin: No rashes, No breakdown Musculoskeletal: No Tenderness to Palpation of Joints or Extremities Neurological: Cranial nerves II-XII grossly intact, DTR 2+/4 and Symmetrical, Neuro grossly intact Psych/Mental Status: Normal Affect, Appropriate. Weight / BMI Weight Weight: 275 lb 12.772 oz Body Mass Index (BMI) 39.1 ABG / Lab / Microbiology Data Result Diagrams: 10/03/21 03:20 10/03/21 03:20 Laboratory: Laboratory Results - last 24 hr 10/03/21 11:00: Fluid Source BRONCHIAL LAVAGE, Fluid Color PINK, Fluid Appearance TURBID, Fluid WBC 1436, Fluid RBC 2981, Fluid Tot Cell Count Not Reportable, Fluid Neutrophils 9, Fluid Lymphocytes 84, Fluid Other Cells 7, Fl Pathologist Comment May follow, Fluid Comment 2 Not Reportable 10/03/21 11:00: Fluid Source BRONCHIAL LAVAGE, Fluid Color RED, Fluid Appearance TURBID, Fluid WBC 1445, Fluid RBC 94310, Fluid Tot Cell Count Not Reportable, Fluid Neutrophils 95, Fluid Lymphocytes 5, Fl Pathologist Comment May follow, Fluid Comment 2 Not Reportable 10/03/21 13:53: POC Glucose 64 L 10/03/21 14:50: POC Glucose 195 H 10/03/21 18:19: POC Glucose 251 H 10/03/21 21:21: POC Glucose 352 H 10/04/21 01:15: Vancomycin Trough 21.1 H 10/04/21 06:33: POC Glucose 218 H Microbiology: Microbiology 10/03/21 11:00 Bronchial Lavage - Right Middle Lobe Gram Stain - Final 10/02/21 13:45 Urine, Midstream Urine Culture - Final Mixed Gram Positive Organisms 10/03/21 11:00 Wash - Bronchial Wash Gram Stain - Final 10/02/21 15:24 Mucosa - Nose Respiratory Panel (PCR) - Final 10/02/21 13:45 Urine, Clean Catch Legionella Antigen - Final 10/02/21 13:45 Urine, Clean Catch Streptococcus pneumoniae Antigen (M - Final 10/02/21 13:25 Nasal Secretion SARS-CoV-2 Antigen (Rapid) - Final D/C Instructions Discharge Diet: Low fat / Low cholesterol, 1800 Calorie Control Diet and 2000 mg Sodium Diet Call your doctor if you observe: Fever of 101 or Higher, Coldness, Increased P ain, Numbness or Tingling, Change in Color, Inability to urinate, Inability to have a bowel movement, Shortness of breath, Dizziness, Fainting spells, Swelling in the ankles, Chest pain, Prolonged hiccupping, Increased palpitations (irregular heartbeat) and Calf discomfort Meaningful Use Info Meaningful Use Diagnoses (Choose all that apply): None applicable Discharge Plan Admission Admit Date/Time: 10/02/21 13:46 Primary Reason for Your Visit: Aspiration pneumonia Attending Provider: Casa Helton Primary Care Provider: Doretha Brown Consulting Providers: Stefano Lanier Discharge Orders/Prescriptions Prescriptions: New amoxicillin-pot clavulanate [Augmentin] 875-125 mg tablet 1 tab PO BID Qty: 10 RF: 0 Continued albuterol sulfate 90 mcg/actuation HFA aerosol inhaler 2 puff inhalation Q4H PRN (Reason: shortness of breath or wheezing) Qty: 8.5 RF: 3 fluoxetine 20 mg capsule 20 mg PO DAILY RF: 0 glimepiride 2 mg tablet 2 mg PO BID Qty: 60 RF: 1 losartan 50 mg tablet 25 mg PO DAILY Qty: 90 RF: 1 alprazolam 0.5 mg tablet 0.5 mg PO BID PRN (Reason: anxiety) Qty: 60 RF: 0 metoclopramide HCl [Reglan] 5 mg tablet 5 mg PO BID Qty: 60 RF: 0 fluoxetine 40 MG capsule 40 mg PO DAILY RF: 0 atorvastatin 80 MG tablet 80 mg PO QHS RF: 0 carvedilol 25 MG tablet 25 mg PO BID RF: 0 isosorbide mononitrate 30 MG tablet extended release 24 hr 30 mg PO DAILY RF: 0 clopidogrel 75 MG tablet 75 mg PO DAILY RF: 0 acetaminophen 500 MG tablet 1,000 mg PO QHS PRN PRN (Reason: Pain 1-10 Or Fever) RF: 0 nitroglycerin 0.4 MG tablet, sublingual 0.4 mg SL Q5M PRN (Reason: Chest Pain) RF: 0 finasteride 5 MG tablet 5 mg PO DAILY RF: 0 insulin lispro 100 UNIT/ML insulin pen See Protocol unit SQ TIDCM RF: 0 buspirone 7.5 mg tablet 7.5 mg PO TID RF: 0 trazodone 100 MG tablet 100 mg PO QHS Qty: 0 RF: 0 nystatin [Nyamyc] 100,000 unit/gram powder 1 applic topical BID PRN (Reason: Rash) RF: 0 clotrimazole 1 % cream 1 applic topical BID PRN (Reason: Rash) RF: 0 spironolactone 25 mg tablet 12.5 mg PO DAILY RF: 0 furosemide 20 mg tablet 20 mg PO DAILY RF: 0 pregabalin [Lyrica] 75 mg capsule 75 mg PO BID Qty: 60 RF: 1 Linzess 72 mcg capsule 72 mcg PO DAILY Qty: 30 RF: 3 Changed pantoprazole 20 MG tablet 40 mg PO DAILY Qty: 0 RF: 0 insulin detemir U-100 100 UNIT/ML insulin pen 30 unit SQ QHS Qty: 0 RF: 0 Discontinued doxycycline hyclate 100 mg capsule 100 mg PO BID Qty: 60 RF: 0 Referrals / Follow Up: Mauricio West MD [STAFF PHYSICIAN] - 11/05/21 1:45 pm (as previously scheduled ) Stefano Lanier DO [STAFF PHYSICIAN] - Within 2 Weeks Doretha Brown MD [Primary Care Provider] - 10/09/21 4:30 pm (as previously scheduled) Arjun Rodriguez DO [STAFF PHYSICIAN] - 10/31/21 (as previously scheduled ) Disposition Disposition (needs filled in before D/C Order can be placed): Home, Self Care Charges/Coding Visit Charges Inpatient E&M: 86548 Disch Hosp
[2021-10-04] MEDS: Pregabalin 75 MG Capsule PO (11:27)
[2021-10-04] MEDS: Carvedilol 25 MG Tablet PO (11:28)
[2021-10-04] MEDS: Losartan Potassium 25 MG Tablet PO (11:28)
[2021-10-04] MEDS: Pantoprazole Sodium 20 MG Tablet PO (11:29)
[2021-10-04] MEDS: FLUoxetine 20 MG Capsule 60 MG PO (11:29)
[2021-10-04] MEDS: Clopidogrel Bisulfate 75 MG Tablet PO (11:30)
[2021-10-04] MEDS: Spironolactone 25 MG Tablet 12.5 MG PO (11:30)
[2021-10-04] MEDS: Finasteride 5 MG Tablet PO (11:31)
[2021-10-04] MEDS: Enoxaparin 40 MG/0.4 ML Syringe SC (11:31)
[2021-10-04] MEDS: Isosorbide Mononitrate 30 MG Tablet PO (11:31)
[2021-10-04] MEDS: Furosemide 20 MG Tablet PO (11:31)
--- NOTE | 2021-10-06 15:30 | CASEMGMT ---
RN LIZETT Discharge Follow Up Phone Call: YOUSIF: Skinny Strata:4 Call Date: 10/06/21 Discharge Date: 10/04/21 Time of Call:1510 Duration:3 min Admitting Dx:acute resp insuff [facility] [place] completed follow up phone call after recent hospitalization. Pt states he is doing good. States he is moving around. Pt was able to filler picker his rx. Pt then asked if this RN LIZETT could call back in a couple of minutes. TC back at 1530 and sig other answered the phone and states they are in the grocery store and connection was lost. Unable to verify if HHC has started.
[2021-10-07 12:27] LABS: Pathologist Comment/Body Fluid Reviewed
[2021-10-07 12:28] LABS: Pathologist Comment/Body Fluid Reviewed
--- NOTE | 2021-12-15 09:01 | CCN.REFER ---
CCN After multiple attempts reaching patient and waiting for HH to DC - patient has declined CCN. Patient appears to exceed what CCN can do for him at this time. Contact Info left with patient.
== END 2021-10-04 11:54 | disposition home or self-care (01) | DRG 177 ==
LOC: ED 13:35 → ICU 15:02 → PCU 10-03 11:15 → MS3 10-03 16:24
PROVIDERS: Internal Medicine Critical Care Medicine; Admitting Provider Family Medicine; Emergency Provider Emergency Medicine; PCP Internal Medicine; Visit Provider Internal Medicine
PROC: 0BJ08ZZ Inspection of Tracheobronchial Tree, Via Natural or Artificial Opening Endoscopic (ICD-10-PCS; CPT 31622; principal; 2021-10-03 11:45)
DX: J69.0 Pneumonitis due to inhalation of food and vomit (principal); J96.21 Acute and chronic respiratory failure with hypoxia; R65.20 Severe sepsis without septic shock; I13.0 Hypertensive heart and chronic kidney disease with heart failure and stage 1 through stage 4 chronic kidney disease, or unspecified chronic kidney disease; J44.0 Chronic obstructive pulmonary disease with (acute) lower respiratory infection; I50.32 Chronic diastolic (congestive) heart failure; E11.22 Type 2 diabetes mellitus with diabetic chronic kidney disease; D64.9 Anemia, unspecified; N18.31 Chronic kidney disease, stage 3a; E11.42 Type 2 diabetes mellitus with diabetic polyneuropathy; E11.43 Type 2 diabetes mellitus with diabetic autonomic (poly)neuropathy; E11.51 Type 2 diabetes mellitus with diabetic peripheral angiopathy without gangrene; Z79.4 Long term (current) use of insulin; K21.9 Gastro-esophageal reflux disease without esophagitis; K31.84 Gastroparesis; M10.9 Gout, unspecified; E78.5 Hyperlipidemia, unspecified; I44.0 Atrioventricular block, first degree; F41.9 Anxiety disorder, unspecified; G43.909 Migraine, unspecified, not intractable, without status migrainosus; G47.33 Obstructive sleep apnea (adult) (pediatric); I25.10 Atherosclerotic heart disease of native coronary artery without angina pectoris; N40.0 Benign prostatic hyperplasia without lower urinary tract symptoms; R13.12 Dysphagia, oropharyngeal phase; E66.9 Obesity, unspecified; F32.A Depression, unspecified; Z68.38 Body mass index [BMI] 38.0-38.9, adult; Z99.81 Dependence on supplemental oxygen; Z95.5 Presence of coronary angioplasty implant and graft; Z87.442 Personal history of urinary calculi; Z79.899 Other long term (current) drug therapy; Z86.19 Personal history of other infectious and parasitic diseases
CPT/HCPCS: 36415; 71045; 71275; 80053; 80202; 81001; 82962; 83605; 83735; 83880; 84145; 84484; 85025; 85610; 85730; 87015; 87040; 87070; 87077; 87086; 87088; 87101; 87116; 87205; 87206; 87252; 87426; 87449; 87633; 87641; 88108; 88305; 88312; 88313; 89050; 92610; 93005; 94002; 94640; 94667; 94668; 97162; 97166; 97530; 97802; 99251; 99285; J7030; J7040; J7120; Q9967; A4216; G0463; J2405

== ENCOUNTER 2021-10-25 03:03 | Inpatient (IN) | payer MEDICARE, MEDICAID, SELFPAY ==
[2021-10-25] VITALS (21 sets, daily range): BP systolic 133–244; BP diastolic 63–151; PULSE 67–106; RESP 12–28; TEMP 36.6–38.9; O2SAT 58–100; BMI 40.1; BMI 39.0
--- NOTE | 2021-10-25 03:09 | EKG12_ITS ---
Test Reason : DYSRHYTHMIA Blood Pressure : / mmHG Vent. Rate : 105 BPM Atrial Rate : 105 BPM P-R Int : 230 ms QRS Dur : 082 ms QT Int : 332 ms P-R-T Axes : 099 030 041 degrees QTc Int : 438 ms Sinus tachycardia with 1st degree A-V block with Premature supraventricular complexes Otherwise normal ECG Confirmed by ARAMIS JOHNS, MAURO ([id number]), desk editor SHARAN DOE ([id number]) on 10/28/2021 8:48:24 AM Referred By: Alicia Larkin Confirmed By:MAURO SELF MD
--- NOTE | 2021-10-25 03:21 | EDS_ITS ---
HPI History of Present Illness Chief Complaint: Shortness of Breath Informant: patient and EMS Onset/Context/Timing Onset: Yesterday Current Severity: Moderate Maximum Severity: Severe Narrative Narrative: Patient presents via EMS secondary to respiratory distress. Patient has a history of recurrent aspiration pneumonia. He reports aspirating twice yesterday while eating. This morning he has had increasing shortness of breath. EMS noted his O2 sats in the 80s on his normal 4 L nasal cannula. He was on a nonrebreather on arrival to the emergency room. Patient has had moist sounding cough. Denies fever. On arrival to the emergency room nursing staff placed this patient back on his normal 4 L. O2 sat drops to 58%. He is placed back on nonrebreather and O2 sats increased into the mid to high 90s. [facility] Medical History (Updated 10/25/21 @ 04:[address] Michelle Arvizu MD) Acute gout Amputation of one or more toes Anxiety Anxiety and depression Arrhythmia Aspiration into airway Aspiration pneumonia Bronchiectasis with (acute) exacerbation CAD (coronary artery disease) Chest pain Congestive heart failure (CHF) COPD (chronic obstructive pulmonary disease) CPAP (continuous positive airway pressure) dependence Depression Diabetes Gastroparesis GERD (gastroesophageal reflux disease) Hypertension Kidney stones Migraines Mood disorder Myocardial infarct Non-smoker On home oxygen therapy PAD (peripheral artery disease) Pneumonia Pulmonary nodule, left Sleep apnea Type 2 diabetes mellitus Vision loss of left eye Wound of left lower extremity Home Medications acetaminophen 1,000 mg PO QHS PRN PRN 02/11/21 [History Last Taken 09/01/21] atorvastatin 80 mg PO QHS 02/11/21 [History Last Taken 10/01/21] carvedilol 25 mg PO BID 02/11/21 [History Last Taken 10/02/21] clopidogrel 75 mg PO DAILY 02/11/21 [History Last Taken 10/02/21] finasteride 5 mg PO DAILY 02/11/21 [History Last Taken 10/02/21] fluoxetine 40 mg PO DAILY 02/11/21 [History Last Taken 10/02/21] insulin lispro See Protocol SQ TIDCM 02/11/21 [History Last Taken 10/01/21] isosorbide mononitrate 30 mg PO DAILY 02/11/21 [History Last Taken 10/02/21] nitroglycerin 0.4 mg SL Q5M PRN 02/11/21 [History Last Taken 02/08/21] albuterol sulfate 90 mcg/actuation aerosol inhaler 2 puff INHALATION Q4H PRN #8.5 g 07/24/21 [Rx Last Taken 10/01/21] clotrimazole 1 applic TOPICAL BID PRN 08/06/21 [History Last Taken 3 Days Ago ~09/29/21] nystatin [Nyamyc] 1 applic TOPICAL BID PRN 08/06/21 [History Last Taken 3 Days Ago ~09/29/21] fluoxetine 20 mg capsule 20 mg PO DAILY cap 08/15/21 [History Last Taken 10/02/21] furosemide 20 mg PO DAILY 09/02/21 [History Last Taken 10/02/21] spironolactone 12.5 mg PO DAILY 09/02/21 [History Last Taken 10/02/21] alprazolam 0.5 mg tablet 0.5 mg PO BID PRN #60 tab 09/25/21 [Rx Last Taken 10/02/21] losartan 50 mg tablet 25 mg PO DAILY #90 tab 09/25/21 [Rx Last Taken 10/02/21] insulin detemir U-100 100 unit/mL (3 mL) subcutaneous pen 28 unit SUBCUT QHS ml 10/09/21 [History Last Taken Unknown] pantoprazole 20 mg tablet,delayed release 20 mg PO DAILY tab 10/09/21 [History Last Taken Unknown] buspirone 7.5 mg tablet 7.5 mg PO TID #90 tab 10/10/21 [Rx Last Taken Unknown] metoclopramide HCl 5 mg tablet 5 mg PO BID #60 tab 10/10/21 [Rx Last Taken Unknown] pregabalin 75 mg capsule 75 mg PO BID #60 cap 10/10/21 [Rx Last Taken Unknown] trazodone 100 mg tablet 100 mg PO QHS #30 tab 10/10/21 [Rx Last Taken Unknown] Allergy/AdvReac Type Severity Reaction Status Date / Time allopurinol AdvReac Vomiting Verified 10/25/21 03:11 Influenza Virus Vaccines AdvReac Vomiting Verified 10/25/21 03:11 pneumococcal vaccine AdvReac Vomiting Verified 10/25/21 03:11 Family History Mother Diabetes Heart disease CHF Father Heart disease [place]/CAD Myocardial infarction Surgical History H/O lithotripsy History of ankle surgery History of coronary artery stent placement Hx of toe surgery S/P peripheral artery angioplasty with stent placement S/P thyroid surgery Social History household members: spouse housing: apartment Smoking Status: Never smoker alcohol intake: never substance use type: does not use ROS ROS ED Constitutional Constitutional ED: Denies chills or fever(s) Eyes Eyes: Denies blurry vision ENT ENT ED: Denies rhinorrhea Cardiovascular Cardiovascular: Denies chest pain Respiratory/Chest Respiratory/Chest: Reports cough and dyspnea Gastrointestinal Gastrointestinal: Denies diarrhea or vomiting Musculoskeletal Musculoskeletal: Denies back pain Integumentary Denies rash Neurologic Neurologic: Denies headache(s) Psychiatric Psychiatric: Reports anxiety Allergic/Immunologic Allergic/Immunologic ED: Denies urticaria EXAM Physical Exam Const Vital Signs: 10/25/21 03:04 10/25/21 03:11 10/25/21 03:22 Temperature 100.1 F H Temperature Source Temporal Pulse Rate 106 H 106 H Respiratory Rate 22 H 28 H 24 H Respiratory Effort Short of Breath Labored Respiratory Depth Respiratory Pattern Tachypnea Tachypnea Blood Pressure 213/151 H Blood Pressure Mean 171 Pulse Ox 58 98 96 Oxygen Delivery Method Nasal Cannula Non-Rebreather Oxygen Flow Rate (L/min) 4 15 Fraction of Inspired Oxygen (FIO2) 40 10/25/21 03:28 10/25/21 03:29 10/25/21 03:36 Temperature Temperature Source Pulse Rate 104 H Respiratory Rate 24 H 20 H Respiratory Effort Short of Breath Labored Respiratory Depth Shallow Respiratory Pattern Tachypnea Blood Pressure 244/135 H Blood Pressure Mean 171 Pulse Ox 96 96 Oxygen Delivery Method Bi-pap Bi-pap Oxygen Flow Rate (L/min) Fraction of Inspired Oxygen (FIO2) 40 30 10/25/21 04:01 Temperature 102.1 F H Temperature Source Temporal Pulse Rate 103 H Respiratory Rate 21 H Respiratory Effort Respiratory Depth Respiratory Pattern Blood Pressure 210/115 H Blood Pressure Mean 146 Pulse Ox 95 Oxygen Delivery Method Bi-pap Oxygen Flow Rate (L/min) Fraction of Inspired Oxygen (FIO2) Positive well nourished and well developed General Appearance ED: well developed HEENT Reports moist mucous membranes Eyes PERRL and EOMs intact bilaterally Neck supple Chest Wall inspection of chest normal and palpation of chest normal Resp Resp Narrative: Tachypnea with transmitted upper airway sounds. Cardio Rate: tachycardic GI non-tender Palpation: soft Extremity Extremity Narrative: 1+ bilateral lower extremity edema. Neuro Sensorium / Orientation: alert Psych Mood & Affect: anxious Skin no rashes or lesions noted MDM MDM MDM Narrative Medical decision making narrative: Sepsis work-up undertaken. Patient placed on BiPAP for pressure support. Lab Data Attestation: I reviewed the patient's lab results. Labs: Laboratory Results - last 24 hr 10/25/21 10/25/21 10/25/21 03:22 03:22 03:22 WBC 13.8 H RBC 4.35 L Hgb 12.0 L Hct 39.0 L MCV 89.7 MCH 27.6 MCHC 30.8 L RDW Std Deviation 43.4 RDW Coeff of James 13.2 Plt Count 219 MPV 11.0 Immature Gran % (Auto) 0.300 Neut % (Auto) 80.8 H Lymph % (Auto) 11.1 L Addison % (Auto) 6.2 Eos % (Auto) 1.2 Baso % (Auto) 0.4 Absolute Neuts (auto) 11.1 H Absolute Lymphs (auto) 1.53 Nucleated RBC % 0 PT Cancelled INR Cancelled APTT Cancelled Sodium Potassium Chloride Carbon Dioxide Anion Gap BUN Creatinine Estim Creat Clear Calc Est GFR (MDRD) Af Amer Est GFR (MDRD) Non-Af BUN/Creatinine Ratio Glucose Lactic Acid Calcium Total Bilirubin AST ALT Alkaline Phosphatase Troponin I High Sens B-Natriuretic Peptide 103.4 H Total Protein Albumin Globulin Albumin/Globulin Ratio 10/25/21 10/25/21 10/25/21 03:22 03:22 03:42 WBC RBC Hgb Hct MCV MCH MCHC RDW Std Deviation RDW Coeff of James Plt Count MPV Immature Gran % (Auto) Neut % (Auto) Lymph % (Auto) Addison % (Auto) Eos % (Auto) Baso % (Auto) Absolute Neuts (auto) Absolute Lymphs (auto) Nucleated RBC % PT 13.8 INR 1.1 APTT 26.7 Sodium 143 Potassium 3.9 Chloride 107 Carbon Dioxide 33.0 H Anion Gap 3 L BUN 23 H Creatinine 1.53 H Estim Creat Clear Calc 51.69 Est GFR (MDRD) Af Amer 60 Est GFR (MDRD) Non-Af 49 L BUN/Creatinine Ratio 15.0 Glucose 58 L Lactic Acid 1.2 Calcium 8.7 Total Bilirubin 0.30 AST 19 ALT 21 Alkaline Phosphatase 118 H Troponin I High Sens 17 B-Natriuretic Peptide Total Protein 7.9 Albumin 3.3 Globulin 4.6 H Albumin/Globulin Ratio 0.7 L Rapid Covid: Negative Radiography Chest X-Ray - ED: 1 View and Chronic Changes (Elevated right hemidiaphragm.) Diagnostic Testing: Clinical Impression(s) from Imaging Studies Chest X-Ray 10/25/21 03:45 IMPRESSION: Resolving right pneumonia, stable elevation right hemidiaphragm. Mild increase of airspace disease in the left base. Electronically Signed: April Meadows MD at 4:24 EST , Service support , EKG Initial EKG: Attestation: I personally reviewed and interpreted this EKG as follows: Interpretation: Sinus Tachycardia (Sinus tach at 105 with no acute i schemia. Underlying base artifact secondary to patient shivering.) Treatment and Re-Evaluation Comments:: On BiPAP patient's FiO2 is been able to be turned down to 35%. O2 sats are in the mid 90s. Respiratory rate is improved. Blood work does reveal leukocytosis with a white count of 13.8 and a left shift. BNP is only 103. Troponin is 17 and lactic acid is 1.2. Chest x-ray reveals chronic changes with elevated right hemidiaphragm. Patient is sent for CTA of the chest. On CT there is an obvious right lower lobe infiltrate. I do not see obvious PE but report is still pending at this time. Patient is given Zosyn and vancomycin. Discharge Plan Triage Chief Complaint: Shortness of Breath ED Provider: Michelle Arvizu Dx/Rx/DC Orders Clinical Impression: Aspiration pneumonia, Sepsis Prescriptions: No Action albuterol sulfate 90 mcg/actuation HFA aerosol inhaler 2 puff inhalation Q4H PRN (Reason: shortness of breath or wheezing) Qty: 8.5 RF: 3 fluoxetine 20 mg capsule 20 mg PO DAILY RF: 0 losartan 50 mg tablet 25 mg PO DAILY Qty: 90 RF: 1 alprazolam 0.5 mg tablet 0.5 mg PO BID PRN (Reason: anxiety) Qty: 60 RF: 0 insulin detemir U-100 100 unit/mL (3 mL) insulin pen 28 unit subcut QHS RF: 0 pantoprazole 20 mg tablet,delayed release (DR/EC) 20 mg PO DAILY RF: 0 fluoxetine 40 MG capsule 40 mg PO DAILY RF: 0 atorvastatin 80 MG tablet 80 mg PO QHS RF: 0 carvedilol 25 MG tablet 25 mg PO BID RF: 0 isosorbide mononitrate 30 MG tablet extended release 24 hr 30 mg PO DAILY RF: 0 clopidogrel 75 MG tablet 75 mg PO DAILY RF: 0 acetaminophen 500 MG tablet 1,000 mg PO QHS PRN PRN (Reason: Pain 1-10 Or Fever) RF: 0 nitroglycerin 0.4 MG tablet, sublingual 0.4 mg SL Q5M PRN (Reason: Chest Pain) RF: 0 finasteride 5 MG tablet 5 mg PO DAILY RF: 0 insulin lispro 100 UNIT/ML insulin pen See Protocol unit SQ TIDCM RF: 0 nystatin [Nyamyc] 100,000 unit/gram powder 1 applic topical BID PRN (Reason: Rash) RF: 0 clotrimazole 1 % cream 1 applic topical BID PRN (Reason: Rash) RF: 0 spironolactone 25 mg tablet 12.5 mg PO DAILY RF: 0 furosemide 20 mg tablet 20 mg PO DAILY RF: 0 buspirone 7.5 mg tablet 7.5 mg PO TID Qty: 90 RF: 2 metoclopramide HCl [Reglan] 5 mg tablet 5 mg PO BID Qty: 60 RF: 0 pregabalin [Lyrica] 75 mg capsule 75 mg PO BID Qty: 60 RF: 1 trazodone 100 mg tablet 100 mg PO QHS Qty: 30 RF: 0 Primary Care Provider: Doretha Brown Referrals: Doretha Brown MD [Primary Care Provider] - Disposition Disposition: Acute Care [facility]
[2021-10-25] MEDS: Albuterol 2.5 MG/3 ML VIAL.NEB. INHALATION ×2 (03:28)
[2021-10-25 03:31] LABS: Absolute Lymphocyte Count 1.53 X10^3/uL (0.83-4.51); Absolute Neutrophil Count 11.1 X10^3/uL (2.0-7.7); Basophil# 0.06 X10^3/uL; Basophil% 0.4 % (0-1); Eosinophil# 0.16 X10^3/uL; Eosinophils% 1.2 % (0-5); Lymphocyte # 1.53 X10^3/ul (0.83-4.51); Lymphocyte % 11.1 % (19-41); Mean Corp Hgb Conc 30.8 g/dL (32-36); Mean Corpuscular Hgb 27.6 pg (27.0-32.0); Mean Corpuscular Volume 89.7 fL (80-94); Monocyte# 0.86 X10^3/uL; Monocyte% 6.2 % (0-10); NRBC Flagged by Analyzer 0 % (0-5); Neutrophil # 11.12 X10^3/uL (2.7-7.7); Neutrophil % 80.8 % (47-70); Platelet Count 219 K/mm3 (150-450); RBC Distribution Width CV 13.2 % (11.6-14.6); RBC Distribution Width SD 43.4 fl (35.1-43.9); Red Blood Count 4.35 M/mm3 (4.6-6.2); White Blood Count 13.8 K/mm3 (4.4-11.0)
--- NOTE | 2021-10-25 03:45 | RAD_ITS ---
STUDY: X-RAY CHEST REASON FOR EXAM: Male, 61 years old. sob TECHNIQUE: Single AP portable view of the chest. COMPARISON: 10/02/21 FINDINGS: There are superimposed monitor leads. Stable elevation right hemidiaphragm. Marked improved aeration with residual airspace disease in the right base and mild increase of airspace in the left base. There is no demonstrated pleural abnormality. Normal size heart. Normal mediastinum and pat. Normal visualized pulmonary arteries. There is atherosclerotic calcification of the aortic arch with tortuosity. The spine and upper abdominal soft tissues are obscured. RAD/Chest 1 View (Portable) IMPRESSION: Resolving right pneumonia, stable elevation right hemidiaphragm. Mild increase of airspace disease in the left base. Electronically Signed: April Meadows MD at 4:24 EST , Service support ,
[2021-10-25 03:49] LABS: BNP,B-Type NATRIURETIC PEPTIDE 103.4 pg/mL (0-100)
[2021-10-25 03:54] LABS: ALB/GLOB Ratio 0.7 RATIO (0.9-2.4); AST(SGOT) 19 U/L (15-37); Alanine Aminotransfer ALT/SGPT 21 U/L (16-61); Albumin, Serum 3.3 g/dL (3.2-5.0); Alkaline Phosphatase 118 U/L (45-117); Anion Gap 3 (5-15); BUN 23 mg/dL (7-18); Calcium,Total 8.7 mg/dL (8.5-10.1); Chloride 107 mmol/L (98-107); Creatinine, Serum 1.53 mg/dL (0.70-1.30); EST Glomerular Filtration Rate 49 mL/min (>60); Est Glom Filt Rate - Afr Amer 60 mL/min (>60); Estimated Creatinine Clearance 51.69 ml/min; Globulin 4.6 g/dL (2.2-4.2); Glucose 58 mg/dL (74-106); Potassium 3.9 mmol/L (3.5-5.1); Protein, Total 7.9 g/dL (6.4-8.2); Sodium Level 143 mmol/L (136-145); Troponin-I HS 17 pg/mL (3.0-78.0)
[2021-10-25 03:55] LABS: Lactic Acid 1.2 mmol/L (0.4-1.9)
--- NOTE | 2021-10-25 04:00 | CT_ITS ---
STUDY: CTA CHEST REASON FOR EXAM: Male, 61 years old. sob RADIATION DOSAGE (If Supplied By Facility): CTDIvol = ( 28.46 ) mGy, DLP = ( 1245.05 ) mGycm TECHNIQUE: The examination was performed with the intravenous administration of IV 100mL Isovue-370. Post-processing of the angiographic images was performed, with multiplanar reformation and 3D reconstruction. There is image blurring as a result of cardiac motion. Diagnostic accuracy particularly bases is reduced. However, there is substantial diagnostic information remaining available on this study. Individualized dose optimization techniques were used for this CT. COMPARISON: Portable chest x-ray 10/25/2021. CTA chest 10/02/2021. FINDINGS: Normal enhancement of the main pulmonary artery and right and left pulmonary arteries. Normal enhancement of the bilateral peripheral pulmonary arteries. There is no demonstrated pulmonary embolism. Normal thoracic aorta and visualized great vessels. Minimal calcification of the aortic arch. There is no demonstrated aortic dissection. Normal heart and pericardium. There are calcifications of the coronary arteries. Normal mediastinum. Normal hilar regions. Normal visualized trachea and bronchi. There isstable elevation right hemidiaphragm with atelectatic changes in the right base, the airspace disease in the right upper lobe, and majority of airspace disease in the right lower lobe have resolved/decreased. There is interval formation of airspace disease in the left lower lobe and lingula. Atelectatic changes are slightly increased. Normal pulmonary parenchyma. Normal pleura. Stable venous varices right hemithorax, marked narrowing of the visualized right subclavian vein. There are degenerative changes of thoracic spine. Normal visualized upper abdomen. CT/CTA Chest W/WO Contrast IMPRESSION: No demonstrated pulmonary embolism, aneurysm, leak or arterial dissection. Improved aeration in the right lung with persistent elevation of the right hemidiaphragm and atelectatic changes. Interval air space disease in the left lung base and lingula with increased atelectasis since previous examination. Right subclavian vein stenosis suspected with varices formation, stable since previous exam. Electronically Signed: April Meadows MD at 5:46 EST , Service support ,
--- NOTE | 2021-10-25 04:00 | CPS ---
x2 Albuterol given to pt. in total in ER
[2021-10-25 04:08] LABS: International Normalized Ratio 1.1; Prothrombin Time (Protime)PT. 13.8 SECONDS (11.7-14.9)
[2021-10-25 04:09] LABS: Partial Thromboplast Time 26.7 Seconds (24.1-36.2)
[2021-10-25] MEDS: Acetaminophen 500 MG Tablet 1000 MG PO (04:31)
--- NOTE | 2021-10-25 05:57 | HP.PCM.HOS_ITS ---
[facility] - General General Date of Admission: 10/25/21 HPI Narrative REA HANNA, is a 61 M with a significant history of diabetes mellitus; COPD; congestive heart failure; CAD status post stents; recurrent aspiration pneumonia; congenital underdevelopment of right lung; and home 3 L to 4 L nasal cannula oxygen who presents to emergency department with chills and rigors that started few hours before presentation. Associated with his symptoms is shortness of breath. He reported that on his home 2 L to 4 L oxygen his oxygen saturation was 89%. Emergency department doctor reports that Per paramedics patient oxygen saturation on 4 L was 80% at home. And paramedics gave patient DuoNeb and placed patient on nonrebreather mask that increase is saturation to 90s. At the emergency department when patient was placed back on 4 L nasal oxygen his initial oxygen saturation was 58%. He was transitioned from nonrebreather mask to BiPAP. With BiPAP at 35% FiO2 his oxygen saturation was in the mid 90s. Eventually at the emergency department he was weaned to 4 L nasal cannula oxygen. Patient had 2 episodes of choking/aspiration spell a few hours before his symptoms started. [facility] Medical History Acute gout Amputation of one or more toes Anxiety Anxiety and depression Arrhythmia Aspiration into airway Aspiration pneumonia Bronchiectasis with (acute) exacerbation CAD (coronary artery disease) Chest pain Congestive heart failure (CHF) COPD (chronic obstructive pulmonary disease) CPAP (continuous positive airway pressure) dependence Depression Diabetes Gastroparesis GERD (gastroesophageal reflux disease) Hypertension Kidney stones Migraines Mood disorder Myocardial infarct Non-smoker On home oxygen therapy PAD (peripheral artery disease) Pneumonia Pulmonary nodule, left Sleep apnea Type 2 diabetes mellitus Vision loss of left eye Wound of left lower extremity Home Medications acetaminophen 1,000 mg PO QHS PRN PRN 02/11/21 [History Last Taken 09/01/21] atorvastatin 80 mg PO QHS 02/11/21 [History Last Taken 10/01/21] carvedilol 25 mg PO BID 02/11/21 [History Last Taken 10/02/21] clopidogrel 75 mg PO DAILY 02/11/21 [History Last Taken 10/02/21] finasteride 5 mg PO DAILY 02/11/21 [History Last Taken 10/02/21] fluoxetine 40 mg PO DAILY 02/11/21 [History Last Taken 10/02/21] insulin lispro See Protocol SQ TIDCM 02/11/21 [History Last Taken 10/01/21] isosorbide mononitrate 30 mg PO DAILY 02/11/21 [History Last Taken 10/02/21] nitroglycerin 0.4 mg SL Q5M PRN 02/11/21 [History Last Taken 02/08/21] albuterol sulfate 90 mcg/actuation aerosol inhaler 2 puff INHALATION Q4H PRN #8.5 g 07/24/21 [Rx Last Taken 10/01/21] clotrimazole 1 applic TOPICAL BID PRN 08/06/21 [History Last Taken 3 Days Ago ~09/29/21] nystatin [[facility]] 1 applic TOPICAL BID PRN 08/06/21 [History Last Taken 3 Days Ago ~09/29/21] fluoxetine 20 mg capsule 20 mg PO DAILY cap 08/15/21 [History Last Taken 10/02/21] furosemide 20 mg PO DAILY 09/02/21 [History Last Taken 10/02/21] spironolactone 12.5 mg PO DAILY 09/02/21 [History Last Taken 10/02/21] alprazolam 0.5 mg tablet 0.5 mg PO BID PRN #60 tab 09/25/21 [Rx Last Taken 10/02/21] losartan 50 mg tablet 25 mg PO DAILY #90 tab 09/25/21 [Rx Last Taken 10/02/21] insulin detemir U-100 100 unit/mL (3 mL) subcutaneous pen 28 unit SUBCUT QHS ml 10/09/21 [History Last Taken Unknown] pantoprazole 20 mg tablet,delayed release 20 mg PO DAILY tab 10/09/21 [History Last Taken Unknown] buspirone 7.5 mg tablet 7.5 mg PO TID #90 tab 10/10/21 [Rx Last Taken Unknown] metoclopramide HCl 5 mg tablet 5 mg PO BID #60 tab 10/10/21 [Rx Last Taken Unknown] pregabalin 75 mg capsule 75 mg PO BID #60 cap 10/10/21 [Rx Last Taken Unknown] trazodone 100 mg tablet 100 mg PO QHS #30 tab 10/10/21 [Rx Last Taken Unknown] Allergy/AdvReac Type Severity Reaction Status Date / Time allopurinol AdvReac Vomiting Verified 10/25/21 03:11 Influenza Virus Vaccines AdvReac Vomiting Verified 10/25/21 03:11 pneumococcal vaccine AdvReac Vomiting Verified 10/25/21 03:11 Family History Mother Diabetes Heart disease CHF Father Heart disease ME/CAD Myocardial infarction Surgical History H/O lithotripsy History of ankle surgery History of coronary artery stent placement Hx of toe surgery S/P peripheral artery angioplasty with stent placement S/P thyroid surgery Social History household members: spouse housing: apartment Smoking Status: Never smoker alcohol intake: never substance use type: does not use ROS ROS Narrative Constitutional: Reports fever chills and rigors. Denies anorexia and change in weight. Eyes: Reports blindness of left eye. Denies discharge from eye(s) or other HEENT: Denies abnormal hearing, dysphagia, ear pain, epistaxis, headache(s), hearing loss, nasal congestion, nasal discharge, post nasal drip, sinus pressure, sore throat or other Cardiovascular: Denies chest pain or palpitations. Respiratory/Chest: Reports chronic cough with clear productive sputum most of the times. Report wheezes. Gastrointestinal: Denies abdominal pain, coffee ground emesis, constipation, diarrhea, dyspepsia, hematemesis, hematochezia, loose stools, melena, nausea, vomiting or other Genitourinary: Denies burning urination, difficulty urinating, dysuria, hemat uria, nocturia, urinary frequency, urinary hesitancy, urinary incontinence, urinary urgency or other Musculoskeletal: Reports right ankle pain (chronic). Denies myalgias, neck pain or other Neurologic: Denies abnormal gait, abnormal speech, confusion, disequilibrium, dizziness, focal weakness, headache(s), numbness, paresthesias, seizure-like activity, seizures, syncope, tingling, tremor(s) or other Psychiatric: Denies anxiety, depression, homicidal ideation, suicidal ideation or other Endocrinology: Denies change in body appearance, cold intolerance, excessive sweating, heat intolerance, polydipsia, polyuria or other Hematologic/Lymphatic: Denies anemia, easy bleeding, easy bruising, lymphadenopathy or other Integumentary: Denies rashes Allergic/Immunologic: Denies rhinitis, hives, eczema, asthma or other Vital Signs Vital Signs Vital Signs: 10/25/21 03:04 10/25/21 03:11 10/25/21 03:22 Temperature 100.1 F H Temperature Source Temporal Pulse Rate 106 H 106 H Respiratory Rate 22 H 28 H 24 H Respiratory Effort Short of Breath Labored Respiratory Depth Respiratory Pattern Tachypnea Tachypnea Blood Pressure 213/151 H Blood Pressure Mean 171 Pulse Ox 58 98 96 Oxygen Delivery Method Nasal Cannula Non-Rebreather Oxygen Flow Rate (L/min) 4 15 Fraction of Inspired Oxygen (FIO2) 40 10/25/21 03:28 10/25/21 03:29 10/25/21 03:36 Temperature Temperature Source Pulse Rate 104 H Respiratory Rate 24 H 20 H Respiratory Effort Short of Breath Labored Respiratory Depth Shallow Respiratory Pattern Tachypnea Blood Pressure 244/135 H Blood Pressure Mean 171 Pulse Ox 96 96 Oxygen Delivery Method Bi-pap Bi-pap Oxygen Flow Rate (L/min) Fraction of Inspired Oxygen (FIO2) 40 30 10/25/21 04:01 10/25/21 04:52 10/25/21 05:00 Temperature 102.1 F H 101.8 F H Temperature Source Temporal Temporal Pulse Rate 103 H 105 H 104 H Respiratory Rate 21 H 19 H 18 Respiratory Effort Respiratory Depth Respiratory Pattern Blood Pressure 210/115 H 189/94 H 186/102 H Blood Pressure Mean 146 125 130 Pulse Ox 95 95 94 Oxygen Delivery Method Bi-pap Bi-pap Bi-pap Oxygen Flow Rate (L/min) Fraction of Inspired Oxygen (FIO2) 35 35 10/25/21 05:49 Temperature 100.1 F H Temperature Source Temporal Pulse Rate 104 H Respiratory Rate 17 Respiratory Effort Respiratory Depth Respiratory Pattern Blood Pressure 163/76 H Blood Pressure Mean 105 Pulse Ox 96 Oxygen Delivery Method Nasal Cannula Oxygen Flow Rate (L/min) 4 Fraction of Inspired Oxygen (FIO2) Weight Weight: 126.9 kg Body Mass Index (BMI) 40.1 Physical Exam Narrative Physical exam: General: Well-nourished, well-developed. Head: Normocephalic, atraumatic, no tenderness Eyes: PERRLA, EOMI ENT, no trauma, moist mucous membranes, no rhinorrhea Neck: Nontender, full range of motion, no spinal tenderness, deformities, step- off CVS: Tachycardia. S1-S2 present. No murmur, gallop or rub. Respiratory : Tachypnea. Clear to auscultation bilaterally, chest wall nontender, no wheezing Abdomen: Soft, nontender, nondistended, normal bowel sounds, no masses : Deferred Back: Nontender, no CVA tenderness, no midline spinal tenderness, deformities, step-offs Extremities: Amputated toes of right feet. Mild tenderness of right ankle. Nontender left ankle. Skin: Normal color, no trauma, abrasions Neuro: Alert, oriented, cranial nerves II through XII grossly intact. Psychiatry: Normal mood. Normal affect. Not depressed. Not anxious. Results Lab / Micro Data Result Diagrams: 10/25/21 03:22 10/25/21 03:22 Labs: Laboratory Results - last 24 hr 10/25/21 03:22: B-Natriuretic Peptide 103.4 H 10/25/21 03:22: WBC 13.8 H, RBC 4.35 L, Hgb 12.0 L, Hct 39.0 L, MCV 89.7, MCH 27.6, MCHC 30.8 L, RDW Std Deviation 43.4, RDW Coeff of James 13.2, Plt Count 219, MPV 11.0, Immature Gran % (Auto) 0.300, Neut % (Auto) 80.8 H, Lymph % (Auto) 11.1 L, Fergus % (Auto) 6.2, Eos % (Auto) 1.2, Baso % (Auto) 0.4, Absolute Neuts (auto) 11.1 H, Absolute Lymphs (auto) 1.53, Nucleated RBC % 0 10/25/21 03:22: PT Cancelled, INR Cancelled, APTT Cancelled 10/25/21 03:22: Sodium 143, Potassium 3.9, Chloride 107, Carbon Dioxide 33.0 H, Anion Gap 3 L, BUN 23 H, Creatinine 1.53 H, Estim Creat Clear Calc 51.69, Est GFR (MDRD) Af Amer 60, Est GFR (MDRD) Non-Af 49 L, BUN/Creatinine Ratio 15.0, Glucose 58 L, Calcium 8.7, Total Bilirubin 0.30, AST 19, ALT 21, Alkaline Phosphatase 118 H, Troponin I High Sens 17, Total Protein 7.9, Albumin 3.3, Globulin 4.6 H, Albumin/Globulin Ratio 0.7 L 10/25/21 03:22: Lactic Acid 1.2 10/25/21 03:42: PT 13.8, INR 1.1, APTT 26.7 Micro: Microbiology 10/25/21 03:19 Nasal Secretion SARS-CoV-2 Antigen (Rapid) - Final Radiology Impression Chest X-Ray 10/25/21 03:45 IMPRESSION: Resolving right pneumonia, stable elevation right hemidiaphragm. Mild increase of airspace disease in the left base. Electronically Signed: April Meadows MD at 4:24 EST , Service support , Chest CTA 10/25/21 04:00 IMPRESSION: No demonstrated pulmonary embolism, aneurysm, leak or arterial dissection. Improved aeration in the right lung with persistent elevation of the right hemidiaphragm and atelectatic changes. Interval air space disease in the left lung base and lingula with increased atelectasis since previous examination. Right subclavian vein stenosis suspected with varices formation, stable since previous exam. Electronically Signed: April Meadows MD at 5:46 EST , Service support , Assessment & Plan Assessment/Plan (1) Acute and chronic respiratory failure: QUALIFIERS: Respiratory failure complication: hypoxia Qualified Code(s): J96.21 - Acute and chronic respiratory failure with hypoxia (2) Aspiration pneumonia: QUALIFIERS: Aspiration pneumonia type: unspecified Laterality: bilateral Lung location: unspecified part of lung Qualified Code(s): J69.0 - Pneumonitis due to inhalation of food and vomit (3) Type 2 diabetes mellitus: QUALIFIERS: Diabetes mellitus residential insulin use: with rn long term care use Diabetes mellitus complication status: with other specified complication Qualified Code(s): E11.69 - Type 2 diabetes mellitus with other specified complication; Z79.4 - intermediate (current) use of insulin PLAN: Acute on chronic hypoxic respiratory failure secondary to aspiration pneumonia Review of records show that patient has had multiple hospitalizations for pneumonia attributed to likely aspiration pneumonia. Patient met SIRS criteria with heart rate of more than 90; respiratory rate of more than 20; white counts of 13.6. qSOFA is 1 (respiratory rate of more or equal to 22). Sepsis ruled out. Rapid Covid was negative. Blood culture x2 ordered emergency department; follow. Review of old labs showed on 10/03/2021 bronchial lavage showed showed Streptococcus group G. Chest CTA and chest x-ray was independently interpreted and agree with radiol ogist interpretation above. Respiratory Gram stain and culture ordered. Antibiotics: Was started on vancomycin and Zosyn. This will be continued. DuoNeb scheduled. Albuterol as needed Legionella antigen screen and Strep antigen ordered Trend CBC and BMP. Diabetes mellitus with hypoglycemia Review of labs showed that blood glucose on BMP was 58. Accu-Chek QA CHS ordered. Hold home hypoglycemic regimen. Cardiac and calorie controlled diet ordered. CKD stage IIIa Stable Hypertension Blood pressure is not within goal Continue home blood pressure medications. As needed hydralazine ordered. Trend blood pressure and adjust blood pressure medications. DVT prophylaxis: Subcutaneous Lovenox ordered. Charges/Coding Visit Charges Inpatient E&M: 59054 Init Hosp L3
--- NOTE | 2021-10-25 06:58 | PCM.RX.CS ---
Consult Pharmacy has been consulted to manage selected antiobiotic: Vancomycin Type of Consult: New start Suspected Infection: Pneumonia Prior Doses of Antibiotics Received/Current Regimen: Medications Vancomycin HCl 1,250 mg/ (Sodium Chloride) 275 mls @ 167 mls/hr IV Q12H ISHAN Discontinued Medications Vancomycin HCl 2,000 mg/ (Sodium Chloride) 540 mls @ 250 mls/hr IV X1 ONE Stop: 10/25/21 06:43 Last Admin: 10/25/21 05:39 Dose: 250 mls/hr Labs: Sodium 143 mmol/L (136-145) 10/25/21 03:22 Potassium 3.9 mmol/L (3.5-5.1) 10/25/21 03:22 Chloride 107 mmol/L (98-107) 10/25/21 03:22 Carbon Dioxide 33.0 mmol/L (21.0-32.0) H 10/25/21 03:22 Anion Gap 3 (5-15) L 10/25/21 03:22 BUN 23 mg/dL (7-18) H 10/25/21 03:22 Creatinine 1.53 mg/dL (0.70-1.30) H 10/25/21 03:22 Est GFR (MDRD) Af Amer 60 mL/min (>60) 10/25/21 03:22 Est GFR (MDRD) Non-Af 49 mL/min (>60) L 10/25/21 03:22 BUN/Creatinine Ratio 15.0 RATIO (10-20) 10/25/21 03:22 Glucose 58 mg/dL (74-106) L 10/25/21 03:22 Microbiology: Microbiology 10/25/21 03:19 Nasal Secretion SARS-CoV-2 Antigen (Rapid) - Final Weight used for dosin.8 kg Estimated Creatinine Clearance: 52 Goal Trough: 15-20 mcg/mL Pharmacy Plan for Drug Dosing: Pharmacy Service will continue to monitor and adjust dosing as required. Follow-Up Labs: Trough Vancomycin Labs to be done on [date and time ordered]: 10/26/21 @1700
[2021-10-25 08:00] LABS: Bedside Glucose 114 mg/dL (70-110)
[2021-10-25] MEDS: Furosemide 20 MG Tablet PO (09:48)
[2021-10-25] MEDS: Isosorbide Mononitrate 30 MG Tablet PO (09:48)
[2021-10-25] MEDS: Enoxaparin 40 MG/0.4 ML Syringe SC (09:48)
[2021-10-25] MEDS: Carvedilol 25 MG Tablet PO ×2 (09:49→17:02)
[2021-10-25] MEDS: FLUoxetine 20 MG Capsule PO (09:49)
[2021-10-25] MEDS: Losartan Potassium 25 MG Tablet PO (09:50)
[2021-10-25] MEDS: Finasteride 5 MG Tablet PO (09:51)
[2021-10-25] MEDS: Clopidogrel Bisulfate 75 MG Tablet PO (09:52)
[2021-10-25] MEDS: Pantoprazole Sodium 20 MG Tablet PO (09:52)
[2021-10-25] MEDS: FLUoxetine 20 MG Capsule 40 MG PO (09:52)
[2021-10-25] MEDS: Pregabalin 75 MG Capsule PO ×2 (09:53→21:40)
[2021-10-25] MEDS: Ipratropium/Albuterol Sulfate 3 ML AMPUL.NEB INHALATION ×3 (11:28→21:52)
[2021-10-25 11:31] LABS: Bedside Glucose 88 mg/dL (70-110)
[2021-10-25] MEDS: Spironolactone 25 MG Tablet 12.5 MG PO (12:41)
[2021-10-25] MEDS: busPIRone 15 MG TABLET 7.5 MG PO ×2 (12:42→21:27)
--- NOTE | 2021-10-25 14:49 | CASEMGMT ---
[facility] chart review: Patient was admitted 10/02-10/04/21 for pneumonia. See chart review from 10/03/21. Patient was discharged home with resumption of [facility] for SN, PT, OT and ST was added. Patient also had referral to [facility]. Patient returned to [facility] on 10/25/21 for SOB follow 2 espisode of aspiration. Patient is currently on baseline home oxygen. Patient to discharge home with resumption of HHC and follow-up with Dr. Rodriguez.
--- NOTE | 2021-10-25 15:27 | PCM.HOSP.N ---
Hospitalist Note Mr. Linda is a 61-year-old white male who presented to the emergency department at [facility] early this morning complaining of shortness of breath. The patient has a history of recurrent aspiration pneumonia and bronchiectasis and he reports that he aspirated twice yesterday while eating. Early this morning he had increasing shortness of breath with oxygen saturations in the 80s on his normal 4 L nasal cannula and he was therefore brought to the emergency department on a nonrebreather. The patient had a moist sounding cough on admission and on arrival they attempted to place him back on his normal 4 L in which time his oxygen saturations dropped to 58%. At this time he has been weaned to 2 to 3 L nasal cannula with an oxygen saturation at 94 to 99% at rest. His urine Legionella and strep antigens are negative. Blood cultures are pending. He was negative for COVID-19 infection. 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 The patient is known to have chronic silent aspiration. He had a recent bronchoscopy on 10/03/2021 grew out group B strep.
[2021-10-25 17:05] LABS: Bedside Glucose 129 mg/dL (70-110)
[2021-10-25] MEDS: Atorvastatin Calcium 80 MG Tablet PO (21:27)
[2021-10-25] MEDS: traZODone 100 MG Tablet PO (21:27)
[2021-10-25 21:41] LABS: Bedside Glucose 144 mg/dL (70-110)
[2021-10-26] VITALS (7 sets, daily range): BP systolic 155–156; BP diastolic 83–86; PULSE 68–78; RESP 18–20; TEMP 36.9–37.3; O2SAT 94–99
[2021-10-26] MEDS: Acetaminophen 325 MG Tablet 650 MG PO (03:19)
[2021-10-26] MEDS: busPIRone 15 MG TABLET 7.5 MG PO (06:30)
[2021-10-26 06:32] LABS: Absolute Lymphocyte Count 1.26 X10^3/uL (0.83-4.51); Absolute Neutrophil Count 6.1 X10^3/uL (2.0-7.7); Basophil# 0.06 X10^3/uL; Basophil% 0.7 % (0-1); Eosinophil# 0.15 X10^3/uL; Eosinophils% 1.8 % (0-5); Hematocrit 31.9 % (40-54); Lymphocyte # 1.26 X10^3/ul (0.83-4.51); Lymphocyte % 14.8 % (19-41); Mean Corp Hgb Conc 31.3 g/dL (32-36); Mean Corpuscular Hgb 27.8 pg (27.0-32.0); Mean Corpuscular Volume 88.6 fL (80-94); Mean Platelet Vol. 11.6 fl (6.2-12.0); Monocyte# 0.95 X10^3/uL; Monocyte% 11.1 % (0-10); NRBC Flagged by Analyzer 0 % (0-5); Neutrophil # 6.09 X10^3/uL (2.7-7.7); Neutrophil % 71.2 % (47-70); Platelet Count 166 K/mm3 (150-450); RBC Distribution Width CV 13.4 % (11.6-14.6); RBC Distribution Width SD 43.7 fl (35.1-43.9); White Blood Count 8.5 K/mm3 (4.4-11.0)
[2021-10-26 06:46] LABS: Bedside Glucose 127 mg/dL (70-110)
[2021-10-26 07:01] LABS: Anion Gap 6 (5-15); BUN 20 mg/dL (7-18); BUN/Creat Ratio 16.9 RATIO (10-20); Calcium,Total 8.5 mg/dL (8.5-10.1); Chloride 106 mmol/L (98-107); Creatinine, Serum 1.18 mg/dL (0.70-1.30); EST Glomerular Filtration Rate 66 mL/min (>60); Est Glom Filt Rate - Afr Amer 80 mL/min (>60); Estimated Creatinine Clearance 67.02 ml/min; Glucose 122 mg/dL (74-106); Potassium 3.6 mmol/L (3.5-5.1); Sodium Level 141 mmol/L (136-145)
[2021-10-26] MEDS: Ipratropium/Albuterol Sulfate 3 ML AMPUL.NEB INHALATION ×2 (07:35→11:48)
--- NOTE | 2021-10-26 07:46 | CPS ---
Patient weaned from Oxygen this morning
[2021-10-26] MEDS: FLUoxetine 20 MG Capsule PO (08:34)
[2021-10-26] MEDS: FLUoxetine 20 MG Capsule 40 MG PO (08:34)
[2021-10-26] MEDS: Carvedilol 25 MG Tablet PO (08:34)
[2021-10-26] MEDS: Furosemide 20 MG Tablet PO (08:35)
[2021-10-26] MEDS: Isosorbide Mononitrate 30 MG Tablet PO (08:35)
[2021-10-26] MEDS: Finasteride 5 MG Tablet PO (08:35)
[2021-10-26] MEDS: Enoxaparin 40 MG/0.4 ML Syringe SC (08:35)
[2021-10-26] MEDS: Pantoprazole Sodium 20 MG Tablet PO (08:35)
[2021-10-26] MEDS: Losartan Potassium 25 MG Tablet PO (08:36)
[2021-10-26] MEDS: Spironolactone 25 MG Tablet 12.5 MG PO (08:36)
[2021-10-26] MEDS: Clopidogrel Bisulfate 75 MG Tablet PO (08:37)
[2021-10-26] MEDS: Pregabalin 75 MG Capsule PO (08:38)
--- NOTE | 2021-10-26 11:43 | PCM.DC.SUM ---
Providers Date of Admission: 10/25/21 Primary Care Physician: Dr. Doretha Brown MD Reason For Visit: ACUTE HYPOXEMIC RESPIRATORY FAILURE 2NDARY TO Diagnosis Discharge Diagnosis (1) Acute and chronic respiratory failure: Status: Chronic Code(s): J96.20 - Acute and chronic respiratory failure, unspecified whether with hypoxia or hypercapnia Qualifiers: Respiratory failure complication: hypoxia Qualified Code(s): J96.21 - Acute and chronic respiratory failure with hypoxia (2) Aspiration pneumonia: Status: Acute Code(s): J69.0 - Pneumonitis due to inhalation of food and vomit Qualifiers: Aspiration pneumonia type: unspecified Laterality: bilateral Lung location: unspecified part of lung Qualified Code(s): J69.0 - Pneumonitis due to inhalation of food and vomit (3) Type 2 diabetes mellitus: Status: Chronic Code(s): E11.9 - Type 2 diabetes mellitus without complications Qualifiers: Diabetes mellitus terminal manager insulin use: with terminal manager use Diabetes mellitus complication status: with other specified complication Qualified Code(s): E11.69 - Type 2 diabetes mellitus with other specified complication; Z79.4 - [facility] (current) use of insulin Medications at Discharge Home Medications acetaminophen 1,000 mg PO QHS PRN PRN 02/11/21 atorvastatin 80 mg PO QHS 02/11/21 carvedilol 25 mg PO BID 02/11/21 clopidogrel 75 mg PO DAILY 02/11/21 finasteride 5 mg PO DAILY 02/11/21 fluoxetine 40 mg PO DAILY 02/11/21 insulin lispro See Protocol SQ TIDCM 02/11/21 isosorbide mononitrate 30 mg PO DAILY 02/11/21 nitroglycerin 0.4 mg SL Q5M PRN 02/11/21 albuterol sulfate 90 mcg/actuation aerosol inhaler 2 puff INHALATION Q4H PRN #8.5 g 07/24/21 clotrimazole 1 applic TOPICAL BID PRN 08/06/21 nystatin [Nyamyc] 1 applic TOPICAL BID PRN 08/06/21 fluoxetine 20 mg capsule 20 mg PO DAILY cap 08/15/21 furosemide 20 mg PO DAILY 09/02/21 spironolactone 12.5 mg PO DAILY 09/02/21 alprazolam 0.5 mg tablet 0.5 mg PO BID PRN #60 tab 09/25/21 losartan 50 mg tablet 25 mg PO DAILY #90 tab 09/25/21 insulin detemir U-100 100 unit/mL (3 mL) subcutaneous pen 28 unit SUBCUT QHS ml 10/09/21 pantoprazole 20 mg tablet,delayed release 20 mg PO DAILY tab 10/09/21 buspirone 7.5 mg tablet 7.5 mg PO TID #90 tab 10/10/21 metoclopramide HCl 5 mg tablet 5 mg PO BID #60 tab 10/10/21 pregabalin 75 mg capsule 75 mg PO BID #60 cap 10/10/21 trazodone 100 mg tablet 100 mg PO QHS #30 tab 10/10/21 amoxicillin-pot clavulanate [Augmentin XR] 1 tab PO BID #12 tab 10/26/21 Hospital Course Summary of Care Provided Minutes Spent on Discharge: 33 Hospital Course: Mr. Linda is a 61-year-old white male presented to emergency department [facility] on 10/25 2021 with a chief complaint of shortness of breath. The patient has multiple admissions and has known silent aspiration but tends not to follow his swallowing protocol and is admitted frequently with aspiration pneumonia. On admission the patient reported that he aspirated twice by eating the day prior. On the morning of admission he had increased shortness of breath and therefore he called the squad. The EMS noted his sats to be 80% on his normal 4 L nasal cannula. He was on a nonrebreather upon arrival to the emergency department and had a moist sounding cough. He was placed back to his normal 4 L and his sats dropped to 58%. Given his desaturation he was placed back on his nonrebreather and his sats increased to the high to mid 90s. He was in turn placed on BiPAP and was slowly able to be weaned in the emergency department before his admission. His blood work did reveal a mild leukocytosis with a white count of 13.8 and a left shift. His BNP was not markedly elevated and his troponin was normal. A lactic acid was obtained and was 1. 2. His chest x-ray revealed chronic changes with an elevated right hemidiaphragm which is chronic for him. A CTA of his chest showed no pulmonary embolus but did show a right lower lobe infiltrate. He was given vancomycin and Zosyn and admitted to the medical surgical floor. He improved rapidly and was able to be weaned back to his baseline 4 L nasal cannula by mid morning on 10/25/2021. He was maintained on IV antibiotics. A sputum culture was obtained on Gram stain showed 2+ gram-positive cocci in clusters but cultures were pending on discharge. Given this is likely aspiration pneumonia its more likely a non-MRSA staph. We will follow cultures and discharged on Augmentin. If cultures are positive for MRSA we may need to switch him to linezolid. I would recommend him to complete a 7-day course of antibiotics. We were actually able to wean him to room air at rest at discharge and instructed him to continue his home oxygen as prescribed as well as continue incentive spirometry and Acapella to assist with clearance given his bronchiectasis at baseline. He is to follow-up with pulmonary medicine within the next 1 to 3 months and his primary care physician within a week. I did review with the patient that is imperative that he follow his swallowing strategies that he was instructed upon. Discharge diagnoses: Acute on chronic hypoxic respiratory failure-acute component resolved Chronic silent aspiration CKD stage IIIa DM-2 Chronic anemia CAD Hypertension Hyperlipidemia Anxiety Depression Obesity GERD Physical Exam Const alert, oriented x3 and no apparent distress Constitutional Narrative: Obese white male sitting up in bed watching television eating breakfast currently on room air, nontoxic, appears comfortable General Appearance: cooperative, comfortable, well kempt and well developed Orientation / Consciousness: awake Exam Limitations: no limitations Nutritional Appearance: obese HEENT normocephalic, head/scalp atraumatic, hearing grossly normal bilaterally and moist oral mucous membranes HEENT Narrative: Mallampati 3, no thrush, dentition fair Eyes PERRL, EOMs intact bilaterally and conjunctivae normal Eyes Narrative: No scleral icterus Neck no lymphadenopathy, supple, no JVD and no carotid bruits Neck Narrative: Trachea midline, no thyroid enlargement Resp normal respiratory effort, no retractions and no use of accessory muscles Resp Narrative: Few crackles at right base Auscultation: crackles; Negative for rales, rhonchi or wheezes Cardio regular rate, regular rhythm, S1 normal heart sound, S2 normal heart sound, no murmurs, no rub, no gallops, no clicks and no JVD GI normal to inspection, nondistended, normoactive bowel sounds, soft to palpation, non-tender and non-distended Extremity normal to inspection and no clubbing, cyanosis or edema Skin no rashes or lesions noted, no wounds, skin turgor normal and no jaundice Neuro oriented x3, CN's II-XII intact bilaterally, moves all extremities, no focal motor deficits and no sensory deficits noted Sensorium / Orientation: awake and alert Speech: speech normal Motor Exam: strength 5/5 throughout Psych affect normal Weight / BMI Weight Weight: 123.5 kg Body Mass Index (BMI) 39.0 ABG / Lab / Microbiology Data Result Diagrams: 10/26/21 05:25 10/26/21 05:25 Laboratory: Laboratory Results - last 24 hr 10/25/21 17:00: POC Glucose 129 H 10/25/21 21:25: POC Glucose 144 H 10/26/21 05:25: WBC 8.5, RBC 3.60 L, Hgb 10.0 L, Hct 31.9 L, MCV 88.6, MCH 27.8, MCHC 31.3 L, RDW Std Deviation 43.7, RDW Coeff of James 13.4, Plt Count 166, MPV 11.6, Immature Gran % (Auto) 0.400, Neut % (Auto) 71.2 H, Lymph % (Auto) 14.8 L, [place] % (Auto) 11.1 H, Eos % (Auto) 1.8, Baso % (Auto) 0.7, Absolute Neuts (auto) 6.1, Absolute Lymphs (auto) 1.26, Nucleated RBC % 0 10/26/21 05:25: Sodium 141, Potassium 3.6, Chloride 106, Carbon Dioxide 29.0, Anion Gap 6, BUN 20 H, Creatinine 1.18, Estim Creat Clear Calc 67.02, Est GFR (MDRD) Af Amer 80, Est GFR (MDRD) Non-Af 66, BUN/Creatinine Ratio 16.9, Glucose 122 H, Calcium 8.5 10/26/21 06:27: POC Glucose 127 H Microbiology: Microbiology 10/25/21 16:10 Interface Orders Gram Stain - Final 10/25/21 16:10 Interface Orders Respiratory Culture - Preliminary 10/25/21 13:40 Urine, Clean Catch Legionella Antigen - Final 10/25/21 13:40 Urine, Clean Catch Streptococcus pneumoniae Antigen (M - Final 10/25/21 03:19 Nasal Secretion SARS-CoV-2 Antigen (Rapid) - Final D/C Instructions Discharge Diet: Low fat / Low cholesterol and 1800 Calorie Control Diet Discharge Activity: Return to Normal Activity Meaningful Use Info Meaningful Use Diagnoses (Choose all that apply): None applicable Discharge Plan Admission Admit Date/Time: 10/25/21 05:27 Primary Reason for Your Visit: Acute hypoxic respiratory failure secondary to aspiration event Attending Provider: Alicia Larkin Primary Care Provider: Doretha Brown Discharge Orders/Prescriptions Prescriptions: New amoxicillin-pot clavulanate [Augmentin XR] 1,000-62.5 mg tablet extended release 12 hr 1 tab PO BID Qty: 12 RF: 0 Continued albuterol sulfate 90 mcg/actuation HFA aerosol inhaler 2 puff inhalation Q4H PRN (Reason: shortness of breath or wheezing) Qty: 8.5 RF: 3 fluoxetine 20 mg capsule 20 mg PO DAILY RF: 0 losartan 50 mg tablet 25 mg PO DAILY Qty: 90 RF: 1 alprazolam 0.5 mg tablet 0.5 mg PO BID PRN (Reason: anxiety) Qty: 60 RF: 0 insulin detemir U-100 100 unit/mL (3 mL) insulin pen 28 unit subcut QHS RF: 0 pantoprazole 20 mg tablet,delayed release (DR/EC) 20 mg PO DAILY RF: 0 fluoxetine 40 MG capsule 40 mg PO DAILY RF: 0 atorvastatin 80 MG tablet 80 mg PO QHS RF: 0 carvedilol 25 MG tablet 25 mg PO BID RF: 0 isosorbide mononitrate 30 MG tablet extended release 24 hr 30 mg PO DAILY RF: 0 clopidogrel 75 MG tablet 75 mg PO DAILY RF: 0 acetaminophen 500 MG tablet 1,000 mg PO QHS PRN PRN (Reason: Pain 1-10 Or Fever) RF: 0 nitroglycerin 0.4 MG tablet, sublingual 0.4 mg SL Q5M PRN (Reason: Chest Pain) RF: 0 finasteride 5 MG tablet 5 mg PO DAILY RF: 0 insulin lispro 100 UNIT/ML insulin pen See Protocol unit SQ TIDCM RF: 0 nystatin [Nyamyc] 100,000 unit/gram powder 1 applic topical BID PRN (Reason: Rash) RF: 0 clotrimazole 1 % cream 1 applic topical BID PRN (Reason: Rash) RF: 0 spironolactone 25 mg tablet 12.5 mg PO DAILY RF: 0 furosemide 20 mg tablet 20 mg PO DAILY RF: 0 buspirone 7.5 mg tablet 7.5 mg PO TID Qty: 90 RF: 2 metoclopramide HCl [Reglan] 5 mg tablet 5 mg PO BID Qty: 60 RF: 0 pregabalin [Lyrica] 75 mg capsule 75 mg PO BID Qty: 60 RF: 1 trazodone 100 mg tablet 100 mg PO QHS Qty: 30 RF: 0 Referrals / Follow Up: Rosendo Foreman MD [STAFF PHYSICIAN] - Within 3 Months Doretha Brown MD [Primary Care Provider] - Within 1 Week Disposition Disposition (needs filled in before D/C Order can be placed): Home, Self Care Charges/Coding Visit Charges Inpatient E&M: [id number] [facility]
== END 2021-10-26 12:06 | disposition home or self-care (01) | DRG 178 ==
LOC: ED 04:53 → ICU 05:56 → MS3 06:54
PROVIDERS: Admitting Provider Hospitalist; Emergency Provider Emergency Medicine; PCP Internal Medicine; Referring Provider Internal Medicine; Visit Provider Internal Medicine
DX: J69.0 Pneumonitis due to inhalation of food and vomit (principal); J96.11 Chronic respiratory failure with hypoxia; Z68.41 Body mass index [BMI] 40.0-44.9, adult; E11.649 Type 2 diabetes mellitus with hypoglycemia without coma; E11.43 Type 2 diabetes mellitus with diabetic autonomic (poly)neuropathy; K31.84 Gastroparesis; E11.22 Type 2 diabetes mellitus with diabetic chronic kidney disease; D64.9 Anemia, unspecified; E11.51 Type 2 diabetes mellitus with diabetic peripheral angiopathy without gangrene; J47.9 Bronchiectasis, uncomplicated; N18.31 Chronic kidney disease, stage 3a; E78.5 Hyperlipidemia, unspecified; F41.9 Anxiety disorder, unspecified; I12.9 Hypertensive chronic kidney disease with stage 1 through stage 4 chronic kidney disease, or unspecified chronic kidney disease; G43.909 Migraine, unspecified, not intractable, without status migrainosus; H54.62 Unqualified visual loss, left eye, normal vision right eye; G47.30 Sleep apnea, unspecified; I25.10 Atherosclerotic heart disease of native coronary artery without angina pectoris; I25.2 Old myocardial infarction; K21.9 Gastro-esophageal reflux disease without esophagitis; M10.9 Gout, unspecified; E66.9 Obesity, unspecified; F32.A Depression, unspecified; G89.29 Other chronic pain; Z87.442 Personal history of urinary calculi
CPT/HCPCS: 36415; 71045; 71275; 80048; 80053; 82962; 83605; 83880; 84484; 85025; 85610; 85730; 87040; 87070; 87205; 87426; 87449; 93005; 94002; 94640; 94667; 97162; 97166; 97802; 99251; 99285; J7040; J7050; Q9967; A4216; G0463

== ENCOUNTER 2021-11-08 13:52 | Inpatient (IN) | payer MEDICARE, MEDICAID, SELFPAY ==
[2021-11-08] VITALS (19 sets, daily range): BP systolic 172–214; BP diastolic 80–141; PULSE 74–105; RESP 12–32; TEMP 36.6–39.4; O2SAT 89–99; BMI 40.6; BMI 40.1
--- NOTE | 2021-11-08 14:17 | EKG12_ITS ---
Test Reason : REPEAT Blood Pressure : / mmHG Vent. Rate : 092 BPM Atrial Rate : 092 BPM P-R Int : 210 ms QRS Dur : 082 ms QT Int : 384 ms P-R-T Axes : 076 019 036 degrees QTc Int : 474 ms Sinus rhythm with sinus arrhythmia with 1st degree A-V block Otherwise normal ECG Confirmed by ARAMIS JOHNS, MAURO ([id number]), multimedia editor SHARAN DOE ([id number]) on 11/10/2021 10:22:00 AM Referred By: SCAR Confirmed By:MAURO SELF MD
--- NOTE | 2021-11-08 14:17 | RAD_ITS ---
History: cough EXAMINATION/TECHNIQUE: XR Chest 1 View: Portable COMPARISON: 17/06/2021 FINDINGS: LINES/DEVICES: None. LUNGS: Mild bibasilar infiltrate/atelectasis not significantly changed from prior exam. Question bilateral upper lobe pulmonary infiltrates. No pneumothorax. MEDIASTINUM AND CARDIOVASCULAR STRUCTURES: Cardiac silhouette not enlarged. Elevation of the right hemidiaphragm again noted. BONES AND SOFT TISSUES: Unremarkable. RAD/Chest 1 View (Portable) IMPRESSION: New bilateral upper lobe infiltrates consistent with pneumonia. Stable mild bibasilar atelectasis/pneumonia at 1601 Reported and signed by: Naga Gallardo MD Electronically Signed: Naga Gallardo MD at 16:00 EST Tel , Service support ,
[2021-11-08 14:28] LABS: Absolute Lymphocyte Count 1.57 X10^3/uL (0.83-4.51); Absolute Neutrophil Count 13.6 X10^3/uL (2.0-7.7); Basophil# 0.06 X10^3/uL; Basophil% 0.4 % (0-1); Eosinophil# 0.25 X10^3/uL; Eosinophils% 1.6 % (0-5); Hematocrit 40.6 % (40-54); Hemoglobin 12.1 g/dL (13.0-16.5); Lymphocyte # 1.57 X10^3/ul (0.83-4.51); Lymphocyte % 9.8 % (19-41); Mean Corp Hgb Conc 29.8 g/dL (32-36); Mean Corpuscular Hgb 27.1 pg (27.0-32.0); Mean Platelet Vol. 11.6 fl (6.2-12.0); Monocyte# 0.52 X10^3/uL; Monocyte% 3.2 % (0-10); NRBC Flagged by Analyzer 0 % (0-5); Neutrophil # 13.57 X10^3/uL (2.7-7.7); Neutrophil % 84.5 % (47-70); Platelet Count 199 K/mm3 (150-450); RBC Distribution Width CV 13.2 % (11.6-14.6); RBC Distribution Width SD 43.6 fl (35.1-43.9); Red Blood Count 4.46 M/mm3 (4.6-6.2); White Blood Count 16.1 K/mm3 (4.4-11.0)
[2021-11-08] MEDS: Ipratropium/Albuterol Sulfate 3 ML AMPUL.NEB INHALATION (14:30)
[2021-11-08] MEDS: Albuterol 2.5 MG/3 ML VIAL.NEB. INHALATION ×2 (14:30)
[2021-11-08] MEDS: Ondansetron 4 MG/2 ML Vial IV (14:39)
--- NOTE | 2021-11-08 14:39 | ED.VIS.DYS ---
HPI History of Present Illness Chief Complaint: Shortness of Breath Narrative Narrative: 61-year-old male presenting with shortness of breath. He is unable to give a history secondary to difficulty breathing. Patient noted to be hypoxic by EMS. Patient was given breathing treatments in route. [facility] Medical History Acute and chronic respiratory failure Acute gout Amputation of one or more toes Anxiety Anxiety and depression Arrhythmia Aspiration into airway Aspiration pneumonia Atherosclerotic heart disease of [place] coronary artery without angina pectoris Bronchiectasis with (acute) exacerbation COPD (chronic obstructive pulmonary disease) CPAP (continuous positive airway pressure) dependence Depression Diabetes Essential hypertension Gastroparesis GERD (gastroesophageal reflux disease) History of aspiration pneumonia History of non-ST elevation myocardial infarction (NSTEMI) (08/2016) Hypertension Kidney stones Leg pain, right Migraines Mood disorder Non-smoker On home oxygen therapy Peripheral vascular occlusive disease Pneumonia Pulmonary nodule, left Right ankle pain Silent aspiration Sleep apnea Type 2 diabetes mellitus Vision loss of left eye Wound of left lower extremity Home Medications acetaminophen 1,000 mg PO QHS PRN PRN 02/11/21 [History Last Taken 09/01/21] atorvastatin 80 mg PO QHS 02/11/21 [History Last Taken 10/01/21] carvedilol 25 mg PO BID 02/11/21 [History Last Taken 10/02/21] clopidogrel 75 mg PO DAILY 02/11/21 [History Last Taken 10/02/21] finasteride 5 mg PO DAILY 02/11/21 [History Last Taken 10/02/21] fluoxetine 40 mg PO DAILY 02/11/21 [History Last Taken 10/02/21] insulin lispro See Protocol SQ TIDCM 02/11/21 [History Last Taken 10/01/21] isosorbide mononitrate 30 mg PO DAILY 02/11/21 [History Last Taken 10/02/21] nitroglycerin 0.4 mg SL Q5M PRN 02/11/21 [History Last Taken 02/08/21] albuterol sulfate 90 mcg/actuation aerosol inhaler 2 puff INHALATION Q4H PRN #8.5 g 07/24/21 [Rx Last Taken 10/01/21] clotrimazole 1 applic TOPICAL BID PRN 08/06/21 [History Last Taken 3 Days Ago ~09/29/21] nystatin [[facility] [place]] 1 applic TOPICAL BID PRN 08/06/21 [History Last Taken 3 Days Ago ~09/29/21] fluoxetine 20 mg capsule 20 mg PO DAILY cap 08/15/21 [History Last Taken 10/02/21] losartan 50 mg tablet 25 mg PO DAILY #90 tab 09/25/21 [Rx Last Taken 10/02/21] insulin detemir U-100 100 unit/mL (3 mL) subcutaneous pen 28 unit SUBCUT QHS ml 10/09/21 [History Last Taken Unknown] buspirone 7.5 mg tablet 7.5 mg PO TID #90 tab 10/10/21 [Rx Last Taken Unknown] metoclopramide HCl 5 mg tablet 5 mg PO BID #60 tab 10/10/21 [Rx Last Taken Unknown] pregabalin 75 mg capsule 75 mg PO BID #60 cap 10/10/21 [Rx Last Taken Unknown] trazodone 100 mg tablet 100 mg PO QHS #30 tab 10/10/21 [Rx Last Taken Unknown] alprazolam 0.5 mg tablet 0.5 mg PO BID PRN #60 tab 11/03/21 [Rx Last Taken Unknown] aspirin 81 mg tablet,delayed release 81 mg PO DAILY 11/05/21 [History Last Taken Unknown] furosemide 40 mg tablet 40 mg PO DAILY #90 tab 11/05/21 [Rx Last Taken Unknown] pantoprazole 20 mg tablet,delayed release 20 mg PO DAILY #90 tab 11/07/21 [Rx Last Taken Unknown] Allergy/AdvReac Type Severity Reaction Status Date / Time allopurinol AdvReac Vomiting Verified 11/08/21 13:54 Influenza Virus Vaccines AdvReac Vomiting Verified 11/08/21 13:54 pneumococcal vaccine AdvReac Vomiting Verified 11/08/21 13:54 Family History Mother Diabetes Heart disease CHF Father Heart disease [place]/CAD Myocardial infarction Surgical History H/O lithotripsy History of angioplasty of peripheral vessel (2016) History of ankle surgery History of coronary artery stent placement (08/2016) History of left heart catheterization (11/15/17) History of thyroid surgery Hx of toe surgery Social History household members: spouse housing: apartment Smoking Status: Never smoker alcohol intake: never substance use type: does not use ROS ROS ED Review of Systems ROS Unobtainable: other Details: Due to respiratory distress EXAM Physical Exam Const Vital Signs: 11/08/21 13:54 11/08/21 13:57 11/08/21 14:30 Temperature 98 F Temperature Source Temporal Pulse Rate 105 H 104 H 98 Respiratory Rate 20 H 22 H 21 H Respiratory Effort Short of Breath Labored Accessory Muscle Use Retracting Respiratory Depth Shallow Respiratory Pattern Tachypnea Blood Pressure 187/141 H Blood Pressure Mean 156 Pulse Ox 89 99 96 Oxygen Delivery Method Non-Rebreather Non-Rebreather Oxygen Flow Rate (L/min) 10 Fraction of Inspired Oxygen (FIO2) 50 11/08/21 14:40 11/08/21 15:06 11/08/21 15:25 Temperature Temperature Source Pulse Rate 93 95 Respiratory Rate 23 H 22 H Respiratory Effort Respiratory Depth Respiratory Pattern Blood Pressure 172/80 H Blood Pressure Mean 110 Pulse Ox 94 95 95 Oxygen Delivery Method Bi-pap Bi-pap Oxygen Flow Rate (L/min) Fraction of Inspired Oxygen (FIO2) 40 40 11/08/21 15:26 Temperature 103 F H Temperature Source Core Pulse Rate Respiratory Rate Respiratory Effort Respiratory Depth Respiratory Pattern Blood Pressure Blood Pressure Mean Pulse Ox Oxygen Delivery Method Oxygen Flow Rate (L/min) Fraction of Inspired Oxygen (FIO2) Positive obese and unkempt General Appearance ED: unkempt and other In respiratory distress ; Negative for pallor Nutritional Appearance: obese HEENT Reports dry mucous membranes atraumatic Mouth ED: Yes dry mucous membranes Mouth: dry mucous membranes Eyes PERRL and EOMs intact bilaterally Resp Effort and Inspection: tachypneic, respiratory distress and labored; Negative for tracheal deviation Auscultation: wheezes expiratory wheezes Cardio regular rhythm Rate: tachycardic Neuro Sensorium / Orientation: alert Psych mental status grossly normal Appearance: unkempt Skin General Skin Exam: Negative for jaundice or pallor MDM MDM MDM Narrative Medical decision making narrative: Patient presenting in respiratory distress. He was unable to give history initially. He was wheezing on examination was given breathing treatments and Solu-Medrol. He was initially on nonrebreather and was switched to BiPAP. He had one episode of emesis but he was given Zofran and placed on BiPAP and has been doing well and steadily improving. I have reevaluated multiple times and he is now awake and alert and be able to speak short sentences and is asking for water. Initial EKG on my interpretation is interpreted by the EKG machine to be atrial fibrillation however I believe this is a sinus tachycardia at 102 bpm that is fairly regular. There is a lot of artifact on this. I will repeat the EKG when the patient is stabilized. Chest x-ray on my interpretation shows bilateral upper lobe infiltrates which are new as well as bibasilar infiltrates which are unchanged. The radiologist does agree. CBC shows a leukocytosis of 16.1 he does have a left shift. Hemoglobin hematocrit are stable. Coagulation studies are normal. BNP slightly elevated at 149.7 however there is no evidence of volume overload based on his exam or chest x-ray. Lactic acid 1.7. Patient creatinine slightly worse at 1.41. LFTs are normal. Urinalysis is negative for infection. Blood cultures and urine cultures are pending. Patient was given vancomycin and Zosyn because he has a respiratory illness on arrival and he was febrile and whether this is aspiration pneumonia or hospital-acquired pneumonia he will need antibiotics. Rapid Covid was negative. Although patient is improved he still on BiPAP. I discussed with the hospitalist for admission. Impression: 1. Sepsis 2. Bilateral pneumonia 3. Hypoxic respiratory failure Lab Data Labs: Laboratory Results - last 24 hr 11/08/21 11/08/21 11/08/21 10:41 14:14 14:14 WBC 16.1 H RBC 4.46 L Hgb 12.1 L Hct 40.6 MCV 91.0 MCH 27.1 MCHC 29.8 L RDW Std Deviation 43.6 RDW Coeff of James 13.2 Plt Count 199 MPV 11.6 Immature Gran % (Auto) 0.500 Neut % (Auto) 84.5 H Lymph % (Auto) 9.8 L [place] % (Auto) 3.2 Eos % (Auto) 1.6 Baso % (Auto) 0.4 Absolute Neuts (auto) 13.6 H Absolute Lymphs (auto) 1.57 Nucleated RBC % 0 PT 13.6 INR 1.1 APTT 25.7 Sodium Potassium Chloride Carbon Dioxide Anion Gap BUN Creatinine Estim Creat Clear Calc Est GFR (MDRD) Af Amer Est GFR (MDRD) Non-Af BUN/Creatinine Ratio Glucose Lactic Acid Calcium Total Bilirubin AST ALT Alkaline Phosphatase Troponin I High Sens B-Natriuretic Peptide 149.7 H Total Protein Albumin Globulin Albumin/Globulin Ratio Urine Color Urine Clarity Urine pH Ur Specific [place] Urine Protein Urine Glucose (UA) Urine Ketones Urine Occult Blood Urine Nitrite Urine Bilirubin Urine Urobilinogen Ur Leukocyte Esterase Urine RBC Urine WBC Ur Squamous Epith Cells Urine Bacteria Urine Mucus 11/08/21 11/08/21 11/08/21 14:14 14:14 14:55 WBC RBC Hgb Hct MCV MCH MCHC RDW Std Deviation RDW Coeff of James Plt Count MPV Immature Gran % (Auto) Neut % (Auto) Lymph % (Auto) [place] % (Auto) Eos % (Auto) Baso % (Auto) Absolute Neuts (auto) Absolute Lymphs (auto) Nucleated RBC % PT INR APTT Sodium 144 Potassium 4.3 Chloride 102 Carbon Dioxide 40.0 H Anion Gap 2 L BUN 17 Creatinine 1.41 H Estim Creat Clear Calc 56.09 Est GFR (MDRD) Af Amer 65 Est GFR (MDRD) Non-Af 54 L BUN/Creatinine Ratio 12.1 Glucose 158 H Lactic Acid 1.7 Calcium 9.1 Total Bilirubin 0.40 AST 18 ALT 21 Alkaline Phosphatase 114 Troponin I High Sens 13 B-Natriuretic Peptide Total Protein 7.7 Albumin 3.3 Globulin 4.4 H Albumin/Globulin Ratio 0.8 L Urine Color Yellow Urine Clarity Clear Urine pH 7.0 Ur Specific [place] 1.010 Urine Protein 30 H Urine Glucose (UA) 100 H Urine Ketones Negative Urine Occult Blood 10 H Urine Nitrite Negative Urine Bilirubin Negative Urine Urobilinogen Normal Ur Leukocyte Esterase Negative Urine RBC 0 SEEN Urine WBC 0 SEEN Ur Squamous Epith Cells 0-5 SEEN Urine Bacteria 0 SEEN Urine Mucus 0 SEEN Radiography Diagnostic Testing: Clinical Impression(s) from Imaging Studies Chest X-Ray 11/08/21 14:17 IMPRESSION: New bilateral upper lobe infiltrates consistent with pneumonia. Stable mild bibasilar atelectasis/pneumonia at 1601 Reported and signed by: Naga Gallardo MD Electronically Signed: Naga Gallardo MD at 16:00 EST Tel , Service support , Discharge Plan Triage Chief Complaint: Shortness of Breath ED Provider: Ck Villar Dx/Rx/DC Orders Prescriptions: No Action albuterol sulfate 90 mcg/actuation HFA aerosol inhaler 2 puff inhalation Q4H PRN (Reason: shortness of breath or wheezing) Qty: 8.5 RF: 3 fluoxetine 20 mg capsule 20 mg PO DAILY RF: 0 losartan 50 mg tablet 25 mg PO DAILY Qty: 90 RF: 1 aspirin [Adult Aspirin Regimen] 81 mg tablet,delayed release (DR/EC) 81 mg PO DAILY RF: 0 furosemide 40 mg tablet 40 mg PO DAILY Qty: 90 RF: 3 insulin detemir U-100 100 unit/mL (3 mL) insulin pen 28 unit subcut QHS RF: 0 pantoprazole [Protonix] 20 mg tablet,delayed release (DR/EC) 20 mg PO DAILY Qty: 90 RF: 2 fluoxetine 40 MG capsule 40 mg PO DAILY RF: 0 atorvastatin 80 MG tablet 80 mg PO QHS RF: 0 carvedilol 25 MG tablet 25 mg PO BID RF: 0 isosorbide mononitrate 30 MG tablet extended release 24 hr 30 mg PO DAILY RF: 0 clopidogrel 75 MG tablet 75 mg PO DAILY RF: 0 acetaminophen 500 MG tablet 1,000 mg PO QHS PRN PRN (Reason: Pain 1-10 Or Fever) RF: 0 nitroglycerin 0.4 MG tablet, sublingual 0.4 mg SL Q5M PRN (Reason: Chest Pain) RF: 0 finasteride 5 MG tablet 5 mg PO DAILY RF: 0 insulin lispro 100 UNIT/ML insulin pen See Protocol unit SQ TIDCM RF: 0 nystatin [Nyamyc] 100,000 unit/gram powder 1 applic topical BID PRN (Reason: Rash) RF: 0 clotrimazole 1 % cream 1 applic topical BID PRN (Reason: Rash) RF: 0 buspirone 7.5 mg tablet 7.5 mg PO TID Qty: 90 RF: 2 metoclopramide HCl [Reglan] 5 mg tablet 5 mg PO BID Qty: 60 RF: 0 pregabalin [Lyrica] 75 mg capsule 75 mg PO BID Qty: 60 RF: 1 trazodone 100 mg tablet 100 mg PO QHS Qty: 30 RF: 0 alprazolam 0.5 mg tablet 0.5 mg PO BID PRN (Reason: anxiety) Qty: 60 RF: 0 Primary Care Provider: Doretha Brown
[2021-11-08 14:40] LABS: International Normalized Ratio 1.1; Partial Thromboplast Time 25.7 Seconds (24.1-36.2); Prothrombin Time (Protime)PT. 13.6 SECONDS (11.7-14.9)
[2021-11-08 14:43] LABS: Lactic Acid 1.7 mmol/L (0.4-1.9)
[2021-11-08 14:45] LABS: ALB/GLOB Ratio 0.8 RATIO (0.9-2.4); AST(SGOT) 18 U/L (15-37); Alanine Aminotransfer ALT/SGPT 21 U/L (16-61); Albumin, Serum 3.3 g/dL (3.2-5.0); Alkaline Phosphatase 114 U/L (45-117); Anion Gap 2 (5-15); BUN 17 mg/dL (7-18); BUN/Creat Ratio 12.1 RATIO (10-20); Calcium,Total 9.1 mg/dL (8.5-10.1); Chloride 102 mmol/L (98-107); Creatinine, Serum 1.41 mg/dL (0.70-1.30); EST Glomerular Filtration Rate 54 mL/min (>60); Est Glom Filt Rate - Afr Amer 65 mL/min (>60); Estimated Creatinine Clearance 56.09 ml/min; Globulin 4.4 g/dL (2.2-4.2); Glucose 158 mg/dL (74-106); Potassium 4.3 mmol/L (3.5-5.1); Protein, Total 7.7 g/dL (6.4-8.2); Sodium Level 144 mmol/L (136-145); Troponin-I HS 13 pg/mL (3.0-78.0)
[2021-11-08] MEDS: MethylPREDNISolone 125 MG/2 ML Vial IV (14:48)
[2021-11-08 15:11] LABS: Bacteria 0 SEEN /hpf (None Seen); Mucous, Urine 0 SEEN /hpf (<or=2+); Red Blood Cells-Urine 0 SEEN /hpf (0-5); White Blood Cells 0 SEEN /hpf (0-5)
[2021-11-08 15:14] LABS: Color, Urine Yellow (Yellow); Glucose, Dipstick 100 mg/dl (Normal); Ketone-Dipstick Negative (Negative); Leukocyte Esterase-Dipstick Negative /ul (Negative); Nitrite-Dipstick Negative (Negative); Occult Blood-Urine 10 /ul (Negative); Protein-Dipstick 30 mg/dl (Negative); Urine Bilirubin Dipstick Negative (Negative); Urine Clarity Clear (Clear); Urine Urobilinogen Normal (Normal)
[2021-11-08 15:22] LABS: Squamous Epithelial Cells - UA 0-5 SEEN /hpf (0-5)
[2021-11-08] MEDS: Acetaminophen 500 MG Tablet 1000 MG PO (15:27)
[2021-11-08 15:48] LABS: BNP,B-Type NATRIURETIC PEPTIDE 149.7 pg/mL (0-100)
--- NOTE | 2021-11-08 16:15 | EKG12_ITS ---
Test Reason : SOB Blood Pressure : / mmHG Vent. Rate : 103 BPM Atrial Rate : 326 BPM P-R Int : 000 ms QRS Dur : 084 ms QT Int : 354 ms P-R-T Axes : 000 086 118 degrees QTc Int : 463 ms Atrial fibrillation Nonspecific ST abnormality Abnormal ECG Confirmed by ARAMIS JOHNS, MAURO ([id number]), technical editor SHARAN DOE ([id number]) on 11/10/2021 10:22:16 AM Referred By: SCAR/ZEUS Confirmed By:MAURO SELF MD
--- NOTE | 2021-11-08 17:23 | NURSING ---
PCU DARRIN HYPOXIA, HOSPITAIL ACQUIRED PNEUMONIA
[2021-11-08] MEDS: Labetalol (Prefilled) 20 MG/4 ML IV (18:40)
--- NOTE | 2021-11-08 19:05 | ED.RN ---
Dr Banks aware of BP and not want to medicate again, floor gave okay to go up. Respiratory called and Christos here. Family given papers.
--- NOTE | 2021-11-08 19:17 | PCS.PANDOC ---
PANDEMIC DOCUMENTATION INITIATED: Date: 07/14/2021 Time: 190
--- NOTE | 2021-11-08 19:30 | PCM.HP.STD ---
HPI - General General Date of Admission: 11/08/21 TITA Linda is a 61-year-old white male who presented to the emergency department at [facility] with shortness of breath and saturations in the 80s. The patient has a history of recurrent aspiration pneumonia and bronchiectasis and reports that he aspirated twice yesterday while eating liquid foods. The patient was on 4 L at home and had oxygen saturations in the 80s cannula and he was therefore brought to the emergency department by EMS on a nonrebreather. He was 89% on nonrebreather and BiPAP was placed with the patient having significant improvement in oxygen saturations up to 98%. In the ED he had a 1 episode of vomiting and he did desaturate to the 70s when they took his BiPAP off. In the ED he was given vancomycin and Zosyn and blood cultures were obtained in the ED. Rapid COVID was negative. [facility] Medical History Acute and chronic respiratory failure Acute gout Amputation of one or more toes Anxiety Anxiety and depression Arrhythmia Aspiration into airway Aspiration pneumonia Atherosclerotic heart disease of [place] coronary artery without angina pectoris Bronchiectasis with (acute) exacerbation COPD (chronic obstructive pulmonary disease) CPAP (continuous positive airway pressure) dependence Depression Diabetes Essential hypertension Gastroparesis GERD (gastroesophageal reflux disease) History of aspiration pneumonia History of non-ST elevation myocardial infarction (NSTEMI) (08/2016) Hypertension Kidney stones Leg pain, right Migraines Mood disorder Non-smoker On home oxygen therapy Peripheral vascular occlusive disease Pneumonia Pulmonary nodule, left Right ankle pain Silent aspiration Sleep apnea Type 2 diabetes mellitus Vision loss of left eye Wound of left lower extremity Home Medications acetaminophen 1,000 mg PO QHS PRN PRN 02/11/21 [History Last Taken 09/01/21] atorvastatin 80 mg PO QHS 02/11/21 [History Last Taken 10/01/21] carvedilol 25 mg PO BID 02/11/21 [History Last Taken 10/02/21] clopidogrel 75 mg PO DAILY 02/11/21 [History Last Taken 10/02/21] finasteride 5 mg PO DAILY 02/11/21 [History Last Taken 10/02/21] fluoxetine 40 mg PO DAILY 02/11/21 [History Last Taken 10/02/21] insulin lispro See Protocol SQ TIDCM 02/11/21 [History Last Taken 10/01/21] isosorbide mononitrate 30 mg PO DAILY 02/11/21 [History Last Taken 10/02/21] nitroglycerin 0.4 mg SL Q5M PRN 02/11/21 [History Last Taken 02/08/21] albuterol sulfate 90 mcg/actuation aerosol inhaler 2 puff INHALATION Q4H PRN #8.5 g 07/24/21 [Rx Last Taken 10/01/21] clotrimazole 1 applic TOPICAL BID PRN 08/06/21 [History Last Taken 3 Days Ago ~09/29/21] nystatin [Nyamyc] 1 applic TOPICAL BID PRN 08/06/21 [History Last Taken 3 Days Ago ~09/29/21] fluoxetine 20 mg capsule 20 mg PO DAILY cap 08/15/21 [History Last Taken 10/02/21] losartan 50 mg tablet 25 mg PO DAILY #90 tab 09/25/21 [Rx Last Taken 10/02/21] insulin detemir U-100 100 unit/mL (3 mL) subcutaneous pen 28 unit SUBCUT QHS ml 10/09/21 [History Last Taken Unknown] buspirone 7.5 mg tablet 7.5 mg PO TID #90 tab 10/10/21 [Rx Last Taken Unknown] pregabalin 75 mg capsule 75 mg PO BID #60 cap 10/10/21 [Rx Last Taken Unknown] trazodone 100 mg tablet 100 mg PO QHS #30 tab 10/10/21 [Rx Last Taken Unknown] alprazolam 0.5 mg tablet 0.5 mg PO BID PRN #60 tab 11/03/21 [Rx Last Taken Unknown] aspirin 81 mg tablet,delayed release 81 mg PO DAILY 11/05/21 [History Last Taken Unknown] furosemide 20 mg PO DAILY 11/08/21 [History Last Taken Unknown] metoclopramide HCl [Reglan] 5 mg PO BID 11/08/21 [History Last Taken Unknown] pantoprazole [Protonix] 20 mg PO DAILY 11/08/21 [History Last Taken Unknown] spironolactone 12.5 mg PO DAILY 11/08/21 [History Last Taken Unknown] Allergy/AdvReac Type Severity Reaction Status Date / Time allopurinol AdvReac Vomiting Verified 11/08/21 13:54 Influenza Virus Vaccines AdvReac Vomiting Verified 11/08/21 13:54 pneumococcal vaccine AdvReac Vomiting Verified 11/08/21 13:54 Family History Mother Diabetes Heart disease CHF Father Heart disease DE/CAD Myocardial infarction Surgical History H/O lithotripsy History of angioplasty of peripheral vessel (2016) History of ankle surgery History of coronary artery stent placement (08/2016) History of left heart catheterization (11/15/17) History of thyroid surgery Hx of toe surgery Social History household members: spouse housing: apartment Smoking Status: Never smoker alcohol intake: never substance use type: does not use ROS ROS Narrative Positive fevers and SOB. No cough, no abdominal pain or urinary complaints. No chest pain or racing. No headache, trouble seeing hearing swallowing. No myalgias arthralgias Vital Signs Vital Signs Vital Signs: 11/08/21 13:54 11/08/21 13:57 11/08/21 14:30 Temperature 98 F Temperature Source Temporal Pulse Rate 105 H 104 H 98 Respiratory Rate 20 H 22 H 21 H Respiratory Effort Short of Breath Labored Accessory Muscle Use Retracting Respiratory Depth Shallow Respiratory Pattern Tachypnea Blood Pressure 187/141 H Blood Pressure Mean 156 Pulse Ox 89 99 96 Oxygen Delivery Method Non-Rebreather Non-Rebreather Oxygen Flow Rate (L/min) 10 Fraction of Inspired Oxygen (FIO2) 50 11/08/21 14:40 11/08/21 15:06 11/08/21 15:25 Temperature Temperature Source Pulse Rate 93 95 Respiratory Rate 23 H 22 H Respiratory Effort Respiratory Depth Respiratory Pattern Blood Pressure 172/80 H Blood Pressure Mean 110 Pulse Ox 94 95 95 Oxygen Delivery Method Bi-pap Bi-pap Oxygen Flow Rate (L/min) Fraction of Inspired Oxygen (FIO2) 40 40 11/08/21 15:26 11/08/21 16:33 11/08/21 17:17 Temperature 103 F H 101.5 F H Temperature Source Core Core Pulse Rate 90 90 Respiratory Rate 32 H 19 H Respiratory Effort Respiratory Depth Respiratory Pattern Blood Pressure 195/91 H Blood Pressure Mean 125 Pulse Ox 96 95 Oxygen Delivery Method Bi-pap Oxygen Flow Rate (L/min) Fraction of Inspired Oxygen (FIO2) 40 11/08/21 17:22 11/08/21 18:01 11/08/21 18:07 Temperature 101.2 F H 101.3 F H Temperature Source Core Core Pulse Rate 95 93 93 Respiratory Rate 19 H 15 21 H Respiratory Effort Respiratory Depth Respiratory Pattern Blood Pressure 203/92 H 207/88 H Blood Pressure Mean 129 127 Pulse Ox 90 96 96 Oxygen Delivery Method Bi-pap Bi-pap Oxygen Flow Rate (L/min) Fraction of Inspired Oxygen (FIO2) 40 11/08/21 19:02 Temperature 101.3 F H Temperature Source Core Pulse Rate 78 Respiratory Rate Respiratory Effort Respiratory Depth Respiratory Pattern Blood Pressure 214/85 H Blood Pressure Mean 128 Pulse Ox Oxygen Delivery Method Oxygen Flow Rate (L/min) Fraction of Inspired Oxygen (FIO2) Weight Weight: 282 lb 13.649 oz Body Mass Index (BMI) 40.6 Physical Exam Const alert General Appearance: cooperative Orientation / Consciousness: awake HEENT normocephalic and head/scalp atraumatic; Negative for moist oral mucous membranes Head and Scalp: normal to inspection Eyes PERRL, EOMs intact bilaterally and conjunctivae normal Chest inspection of chest normal and palpation of chest normal Resp No normal air movement Resp Narrative: Decreased air movement with rhonchi - appears very stable on BIPAP Cardio regular rate and regular rhythm Rhythm: regular rhythm GI normal to inspection, nondistended, normoactive bowel sounds, soft to palpation and non-tender GI Narrative: obese Neuro Neuro Narrative: No focal deficits. Mentating clearly. Results Lab / Micro Data Result Diagrams: 11/08/21 14:14 11/08/21 14:14 Labs: Laboratory Results - last 24 hr 11/08/21 10:41: B-Natriuretic Peptide 149.7 H 11/08/21 14:14: WBC 16.1 H, RBC 4.46 L, Hgb 12.1 L, Hct 40.6, MCV 91.0, MCH 27.1, MCHC 29.8 L, RDW Std Deviation 43.6, RDW Coeff of James 13.2, Plt Count 199, MPV 11.6, Immature Gran % (Auto) 0.500, Neut % (Auto) 84.5 H, Lymph % (Auto) 9.8 L, [place] % (Auto) 3.2, Eos % (Auto) 1.6, Baso % (Auto) 0.4, Absolute Neuts (auto) 13.6 H, Absolute Lymphs (auto) 1.57, Nucleated RBC % 0 11/08/21 14:14: PT 13.6, INR 1.1, APTT 25.7 11/08/21 14:14: Sodium 144, Potassium 4.3, Chloride 102, Carbon Dioxide 40.0 H, Anion Gap 2 L, BUN 17, Creatinine 1.41 H, Estim Creat Clear Calc 56.09, Est GFR (MDRD) Af Amer 65, Est GFR (MDRD) Non-Af 54 L, BUN/Creatinine Ratio 12.1, Glucose 158 H, Calcium 9.1, Total Bilirubin 0.40, AST 18, ALT 21, Alkaline Phosphatase 114, Troponin I High Sens 13, Total Protein 7.7, Albumin 3.3, Globulin 4.4 H, Albumin/Globulin Ratio 0.8 L 11/08/21 14:14: Lactic Acid 1.7 11/08/21 14:55: Urine Color Yellow, Urine Clarity Clear, Urine pH 7.0, Ur Specific [place] 1.010, Urine Protein 30 H, Urine Glucose (UA) 100 H, Urine Ketones Negative, Urine Occult Blood 10 H, Urine Nitrite Negative, Urine Bilirubin Negative, Urine Urobilinogen Normal, Ur Leukocyte Esterase Negative, Urine RBC 0 SEEN, Urine WBC 0 SEEN, Ur Squamous Epith Cells 0-5 SEEN, Urine Bacteria 0 SEEN, Urine Mucus 0 SEEN Micro: Microbiology 11/08/21 15:04 Nasal Secretion SARS-CoV-2 Antigen (Rapid) - Final Radiology Impression Chest X-Ray 11/08/21 14:17 IMPRESSION: New bilateral upper lobe infiltrates consistent with pneumonia. Stable mild bibasilar atelectasis/pneumonia at 1601 Reported and signed by: Naga Gallardo MD Electronically Signed: Naga Gallardo MD at 16:00 EST Tel , Service support , Assessment & Plan Assessment/Plan (1) History of coronary artery stent placement: PLAN: Accu-Chek ordered. Hold home hypoglycemic regimen. Diabetic diet ordered. (2) Diabetes mellitus: QUALIFIERS: Diabetes mellitus complication status: with other specified complication Diabetes mellitus chcf insulin use: with chcf use Diabetes mellitus type: type 2 Qualified Code(s): E11.69 - Type 2 diabetes mellitus with other specified complication; Z79.4 - long-term (current) use of insulin PLAN: Continue diabetic diet Glucose checks nightly AC Continue Home Long acting insulin (3) Peripheral vascular occlusive disease: PLAN: Continue home medications Con't plavix (4) Aspiration pneumonia: PLAN: Review of records show that patient has had multiple hospitalizations for pneumonia attributed to likely aspiration pneumonia. This febrile episode happened after 2 aspirations yesterday Rapid Covid was negative. Blood culture x2 ordered emergency department; follow. Respiratory Gram stain and culture ordered. In ED received vancomycin and Zosyn. Continue at this time. DuoNeb scheduled. Albuterol as needed Legionella antigen screen and Strep antigen ordered Trend CBC and BMP. Rapid covid negative. (5) Diastolic heart failure: PLAN: Continue losartan and Aldactone Imdur 30 mg REcently seen by cardiology this week.
--- NOTE | 2021-11-08 20:12 | PCM.RX.CS ---
Consult Pharmacy has been consulted to manage selected antiobiotic: Vancomycin Type of Consult: New start Suspected Infection: Pneumonia Prior Doses of Antibiotics Received/Current Regimen: Medications Vancomycin HCl 1,250 mg/ (Sodium Chloride) 275 mls @ 167 mls/hr IV Q12H ISHAN Discontinued Medications Vancomycin HCl 2,000 mg/ (Sodium Chloride) 540 mls @ 250 mls/hr IV X1 ONE Stop: 11/08/21 16:46 Last Admin: 11/08/21 17:45 Dose: Infused Labs: Sodium 144 mmol/L (136-145) 11/08/21 14:14 Potassium 4.3 mmol/L (3.5-5.1) 11/08/21 14:14 Chloride 102 mmol/L (98-107) 11/08/21 14:14 Carbon Dioxide 40.0 mmol/L (21.0-32.0) H 11/08/21 14:14 Anion Gap 2 (5-15) L 11/08/21 14:14 BUN 17 mg/dL (7-18) 11/08/21 14:14 Creatinine 1.41 mg/dL (0.70-1.30) H 11/08/21 14:14 Est GFR (MDRD) Af Amer 65 mL/min (>60) 11/08/21 14:14 Est GFR (MDRD) Non-Af 54 mL/min (>60) L 11/08/21 14:14 BUN/Creatinine Ratio 12.1 RATIO (10-20) 11/08/21 14:14 Glucose 158 mg/dL (74-106) H 11/08/21 14:14 Microbiology: Microbiology 11/08/21 15:04 Nasal Secretion SARS-CoV-2 Antigen (Rapid) - Final Weight used for dosin kg Estimated Creatinine Clearance: 56 Goal Trough: 15-20 mcg/mL Pharmacy Plan for Drug Dosing: Pharmacy Service will continue to monitor and adjust dosing as required. Follow-Up Labs: Trough Vancomycin Labs to be done on [date and time ordered]: 11/10/21 @0406
[2021-11-08] MEDS: Isosorbide Mononitrate 30 MG Tablet PO (20:51)
[2021-11-08] MEDS: Carvedilol 25 MG Tablet PO (20:51)
[2021-11-08] MEDS: ALPRAZolam 0.5 MG Tablet PO (22:31)
[2021-11-08] MEDS: Atorvastatin Calcium 80 MG Tablet PO (22:31)
[2021-11-08] MEDS: traZODone 100 MG Tablet PO (22:31)
[2021-11-08] MEDS: busPIRone 15 MG TABLET 7.5 MG PO (22:31)
[2021-11-08 23:16] LABS: Bedside Glucose 331 mg/dL (70-110)
[2021-11-08] MEDS: Acetaminophen 325 MG Tablet 650 MG PO (23:34)
[2021-11-08 23:41] LABS: Bedside Glucose 291 mg/dL (70-110)
[2021-11-09] VITALS (15 sets, daily range): BP systolic 146–215; BP diastolic 73–98; PULSE 57–76; RESP 12–18; TEMP 36.6–36.9; O2SAT 94–100
[2021-11-09] MEDS: Pantoprazole Sodium 20 MG Tablet PO (06:05)
[2021-11-09] MEDS: busPIRone 15 MG TABLET 7.5 MG PO ×3 (06:06→22:48)
[2021-11-09] MEDS: Clopidogrel Bisulfate 75 MG Tablet PO (08:01)
[2021-11-09] MEDS: Aspirin E.C. 81 MG Tablet PO (08:01)
[2021-11-09] MEDS: Isosorbide Mononitrate 30 MG Tablet PO (08:02)
[2021-11-09] MEDS: Carvedilol 25 MG Tablet PO ×2 (08:02→22:49)
[2021-11-09] MEDS: Ipratropium/Albuterol Sulfate 3 ML AMPUL.NEB INHALATION ×3 (08:03→19:26)
[2021-11-09] MEDS: FLUoxetine 20 MG Capsule PO (08:03)
[2021-11-09] MEDS: Losartan Potassium 25 MG Tablet PO (08:03)
[2021-11-09] MEDS: Spironolactone 25 MG Tablet 12.5 MG PO (08:04)
[2021-11-09] MEDS: Insulin Lispro 100 UNIT/ML INSULN.PEN SC ×3 (08:15→17:24)
[2021-11-09] MEDS: hydrALAZINE 20 MG/ML Vial 5 MG IV (08:15)
[2021-11-09] MEDS: 0.9% Saline Lock 10 ML Syringe IV (08:17)
[2021-11-09 09:16] LABS: Bedside Glucose 309 mg/dL (70-110)
[2021-11-09 11:30] LABS: Bedside Glucose 330 mg/dL (70-110)
--- NOTE | 2021-11-09 15:38 | PCM.PN.HOSP ---
Subjective Subjective Says he does not want to be told he is getting worse or if he a severe life threatening illness. Objective Data Objective Data Vital Signs: Vital Signs Temp Pulse Resp BP Pulse Ox 36.6 C 68 16 153/73 H 99 11/09/21 11:00 11/09/21 13:16 11/09/21 13:16 11/09/21 11:00 11/09/21 13:16 Oxygen Flow Rate (L/min) 2.5 Oxygen Delivery Method Nasal Cannula Weight: 127 kg Body Mass Index (BMI) 40.1 Intake & Output: Intake and Output for Last 24 Hours 11/07/21 11/08/21 11/09/21 23:59 23:59 23:59 Intake Total 590 / 590 1095 / 1095 Output Total 1400 / 1400 Balance 590 / 590 -305 / -305 Lab / Micro Data Result Diagrams: 11/08/21 14:14 11/08/21 14:14 Labs: Laboratory Results - last 24 hr 11/08/21 10:41: B-Natriuretic Peptide 149.7 H 11/08/21 22:29: POC Glucose 331 H 11/08/21 23:33: POC Glucose 291 H 11/09/21 08:01: POC Glucose 309 H 11/09/21 11:04: POC Glucose 330 H Micro: Microbiology 11/08/21 14:55 Urine, Clean Catch Urine Culture - Preliminary Culture exhibits no growth. 11/08/21 Unknown Urine Catheter - Catheter Legionella Antigen - Final 11/08/21 Unknown Urine Catheter - Catheter Streptococcus pneumoniae Antigen (M - Final 11/08/21 15:04 Nasal Secretion SARS-CoV-2 Antigen (Rapid) - Final Radiography Diagnostic Testing: Radiology Impression Chest X-Ray 11/08/21 14:17 IMPRESSION: New bilateral upper lobe infiltrates consistent with pneumonia. Stable mild bibasilar atelectasis/pneumonia at 1601 Reported and signed by: Naga Gallardo MD Electronically Signed: Naga Gallardo MD at 16:00 EST Tel , Service support , Physical Exam Const alert and no apparent distress Resp normal respiratory effort, no retractions, no use of accessory muscles and clear to auscultation bilaterally Cardio regular rate, regular rhythm, S1 normal heart sound and S2 normal heart sound GI normal to inspection, nondistended, normoactive bowel sounds, soft to palpation, non-tender and non-distended Extremity normal to inspection and full ROM Assessment & Plan Assessment/Plan (1) History of coronary artery stent placement: (2) Diabetes mellitus: QUALIFIERS: Diabetes mellitus type: type 2 Diabetes mellitus group home insulin use: with intermediate project manager use Diabetes mellitus complication status: with other specified complication Qualified Code(s): E11.69 - Type 2 diabetes mellitus with other specified complication; Z79.4 - 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 acute hypoxic respiratory failure rapid improvement was on BiPAP, now on 2.5 L/m concern is for aspiration pneumonia v HCAP, however, this event occurred while he was in bed. I am unsure if there is new infiltrate as he had this last month, too. continue to wean oxygen as able Consider outpt ENT eval for vocal cord dysfunction 2. Possible gram negative pneumonia LLL infiltrate, but this was noted on 10/26 unclear if this is, but favor treatment at this time continue pip/tazo and vanc for now. 3. HTN urgency improved improved continue carvdilol 25 BID, spironolactone add amlodipine 4. H/O aspiration pneumonia MBS from 09/04/2021: Swallow function is characterized by: reduced oral clearance w/ piecemeal deglutition pattern utilized and mild residue retention on the oral tongue premature pharyngeal bolus entry w/ suboptimal bolus location upon swallow onset delayed swallow onset w/ liquid pooling to the pyriform sinuses before initiating swallow reduced laryngeal elevation and anterior hyoid excursion resulted in delayed and incomplete laryngeal vestibule despite incomplete laryngeal vestibule closure, the patient maintained airway protection with NO penetration/aspiration across all trials. mild residue retention w/in the pyriforms post deglutition, sufficiently cleared w/ a double swallow incomplete PES distention w/ appearance consistent w/ anterior esophageal webbing SEE PACS IMAGES WITH RED ARROWS for further review (patient underwent endoscopy earlier this date w/ no mention of abnormal upper esophagus) moist cough noted several minutes after MBS conclusion w/ patient reporting frequent coughing after meals; cannot rule out reflux aspiration as a contributing factor in recurrent PNA He has been approved for regular by ST in the past 5. DM2 uncontrolled continue glargine and SSI 6. VTE prophylaxis: LMWH. 7. Progressive debility endorses tremors at time and frequent falls. Spoke with patient to follow up with neurology to see if any neurologic etiology of some his complaints. That can be done as outpt. Samreen 35 minutes of which greater than for percent time was counseled the patient about pneumonia and possible neurologic etiologies of his falls, difficulty swallowing at times. Told him that there is nothing definitive from a neurologic standpoint distant just anything like Parkinson's but certainly with his falls and tremulousness I think would be warranted to be evaluated for Parkinson's disease. Charges/Coding Visit Charges Inpatient E&M: 22074 Subs Hosp L3
[2021-11-09 16:11] LABS: Bedside Glucose 278 mg/dL (70-110)
[2021-11-09] MEDS: Enoxaparin 40 MG/0.4 ML Syringe SC (17:25)
[2021-11-09] MEDS: traZODone 100 MG Tablet PO (22:48)
[2021-11-09] MEDS: Atorvastatin Calcium 80 MG Tablet PO (22:49)
[2021-11-09] MEDS: Oxymetazoline 0.05% 1 SPRAY SPRAY.BTL NASAL (23:33)
[2021-11-09 23:41] LABS: Bedside Glucose 292 mg/dL (70-110)
[2021-11-10] VITALS (18 sets, daily range): BP systolic 119–222; BP diastolic 54–110; PULSE 58–100; RESP 12–20; TEMP 36.7–37.7; O2SAT 94–96
[2021-11-10 03:00] LABS: Absolute Lymphocyte Count 1.31 X10^3/uL (0.83-4.51); Absolute Neutrophil Count 15.9 X10^3/uL (2.0-7.7); Basophil# 0.05 X10^3/uL; Basophil% 0.3 % (0-1); Eosinophil# 0.01 X10^3/uL; Eosinophils% 0.1 % (0-5); Hematocrit 34.2 % (40-54); Hemoglobin 10.6 g/dL (13.0-16.5); Lymphocyte # 1.31 X10^3/ul (0.83-4.51); Lymphocyte % 7.1 % (19-41); Mean Corpuscular Hgb 27.2 pg (27.0-32.0); Mean Corpuscular Volume 87.9 fL (80-94); Mean Platelet Vol. 11.6 fl (6.2-12.0); Monocyte# 1.12 X10^3/uL; Monocyte% 6.1 % (0-10); NRBC Flagged by Analyzer 0 % (0-5); Neutrophil # 15.86 X10^3/uL (2.7-7.7); Neutrophil % 85.8 % (47-70); Platelet Count 157 K/mm3 (150-450); RBC Distribution Width CV 13.2 % (11.6-14.6); RBC Distribution Width SD 42.5 fl (35.1-43.9); Red Blood Count 3.89 M/mm3 (4.6-6.2); White Blood Count 18.5 K/mm3 (4.4-11.0)
[2021-11-10 03:14] LABS: ALB/GLOB Ratio 0.7 RATIO (0.9-2.4); AST(SGOT) 13 U/L (15-37); Alanine Aminotransfer ALT/SGPT 18 U/L (16-61); Albumin, Serum 2.9 g/dL (3.2-5.0); Alkaline Phosphatase 77 U/L (45-117); Anion Gap 4 (5-15); BUN 32 mg/dL (7-18); BUN/Creat Ratio 24.8 RATIO (10-20); Chloride 100 mmol/L (98-107); Creatinine, Serum 1.29 mg/dL (0.70-1.30); EST Glomerular Filtration Rate 60 mL/min (>60); Est Glom Filt Rate - Afr Amer 72 mL/min (>60); Glucose 303 mg/dL (74-106); Potassium 4.1 mmol/L (3.5-5.1); Protein, Total 6.9 g/dL (6.4-8.2); Sodium Level 138 mmol/L (136-145)
[2021-11-10] MEDS: ALPRAZolam 0.5 MG Tablet PO (04:33)
--- NOTE | 2021-11-10 04:36 | PCM.RX.CS ---
Consult Pharmacy has been consulted to manage selected antiobiotic: Vancomycin Type of Consult: Follow-up Suspected Infection: Pneumonia Prior Doses of Antibiotics Received/Current Regimen: Medications Vancomycin HCl 1,250 mg/ (Sodium Chloride) 275 mls @ 167 mls/hr IV Q12H ISHAN Last Admin: 11/10/21 04:23 Dose: 167 mls/hr Labs: Sodium 138 mmol/L (136-145) 11/10/21 02:42 Potassium 4.1 mmol/L (3.5-5.1) 11/10/21 02:42 Chloride 100 mmol/L (98-107) 11/10/21 02:42 Carbon Dioxide 34.0 mmol/L (21.0-32.0) H 11/10/21 02:42 Anion Gap 4 (5-15) L 11/10/21 02:42 BUN 32 mg/dL (7-18) H 11/10/21 02:42 Creatinine 1.29 mg/dL (0.70-1.30) 11/10/21 02:42 Est GFR (MDRD) Af Amer 72 mL/min (>60) 11/10/21 02:42 Est GFR (MDRD) Non-Af 60 mL/min (>60) 11/10/21 02:42 BUN/Creatinine Ratio 24.8 RATIO (10-20) H 11/10/21 02:42 Glucose 303 mg/dL (74-106) H 11/10/21 02:42 Vancomycin Trough 20.0 ug/mL (5.0-15.0) H 11/10/21 02:42 Microbiology: Microbiology 11/08/21 14:55 Urine, Clean Catch Urine Culture - Preliminary Culture exhibits no growth. 11/08/21 Unknown Urine Catheter - Catheter Legionella Antigen - Final 11/08/21 Unknown Urine Catheter - Catheter Streptococcus pneumoniae Antigen (M - Final 11/08/21 15:04 Nasal Secretion SARS-CoV-2 Antigen (Rapid) - Final Weight used for dosin kg Estimated Creatinine Clearance: 56 Goal Trough: 15-20 mcg/mL Pharmacy Plan for Drug Dosing: The vancomycin trough level of 20.0 was at the top end of the target range of 15-20, but since the level was drawn just 9.3 hours after the previous dose we will continue the same dosing. Another trough will be drawn in four more doses. Pharmacy Service will continue to monitor and adjust dosing as required. Follow-Up Labs: Trough Vancomycin Labs to be done on [date and time ordered]: 11/11/21 @1600
[2021-11-10] MEDS: 0.9% Saline Lock 10 ML Syringe IV ×3 (04:47→15:29)
[2021-11-10] MEDS: hydrALAZINE 20 MG/ML Vial 5 MG IV (04:47)
[2021-11-10] MEDS: busPIRone 15 MG TABLET 7.5 MG PO ×3 (05:43→21:23)
[2021-11-10] MEDS: Ipratropium/Albuterol Sulfate 3 ML AMPUL.NEB INHALATION ×2 (07:18→13:35)
[2021-11-10] MEDS: Insulin Lispro 100 UNIT/ML INSULN.PEN SC ×3 (07:59→17:15)
[2021-11-10] MEDS: Oxymetazoline 0.05% 1 SPRAY SPRAY.BTL NASAL ×2 (08:00→21:23)
[2021-11-10] MEDS: Aspirin E.C. 81 MG Tablet PO (08:01)
[2021-11-10] MEDS: Spironolactone 25 MG Tablet 12.5 MG PO (08:01)
[2021-11-10] MEDS: Isosorbide Mononitrate 30 MG Tablet PO (08:01)
[2021-11-10] MEDS: Carvedilol 25 MG Tablet PO ×2 (08:01→21:24)
[2021-11-10] MEDS: FLUoxetine 20 MG Capsule PO (08:02)
[2021-11-10] MEDS: Losartan Potassium 25 MG Tablet PO (08:02)
[2021-11-10] MEDS: Pantoprazole Sodium 20 MG Tablet PO (08:02)
[2021-11-10] MEDS: Clopidogrel Bisulfate 75 MG Tablet PO (08:02)
[2021-11-10] MEDS: Acetaminophen 325 MG Tablet 650 MG PO ×2 (08:04→15:29)
[2021-11-10] MEDS: Furosemide 20 MG Tablet PO (08:04)
[2021-11-10] MEDS: Glucerna Shake 120 ML LIQUID PO (08:04)
[2021-11-10] MEDS: amLODIPine 2.5 MG Tablet PO (08:04)
[2021-11-10] MEDS: Glycerin/Hypromellose/PEG400 15 ml Bottle 2 DRP EACH EYE ×3 (08:05→21:21)
--- NOTE | 2021-11-10 08:10 | NURSING ---
Gave morning medications early due to high blood pressure
[2021-11-10] MEDS: hydrALAZINE 20 MG/ML Vial 10 MG IV ×2 (09:40→15:29)
[2021-11-10 10:16] LABS: Bedside Glucose 267 mg/dL (70-110)
[2021-11-10 12:35] LABS: Bedside Glucose 252 mg/dL (70-110)
--- NOTE | 2021-11-10 15:42 | PCM.PN.HOSP ---
Documented by User: Crow SOLARES 11/10/21 15:50 Subjective Subjective Patient is a 61-year-old male lying in bed, alert and orient x3. Patient reports that he is still experiencing fevers and diffuse sweats. Unclear how much patient is comprehending despite being alert and oriented. Objective Data Objective Data Vital Signs: Vital Signs Temp Pulse Resp BP Pulse Ox 99.0 F 100 18 182/104 H 94 11/10/21 15:30 11/10/21 15:30 11/10/21 15:30 11/10/21 15:30 11/10/21 15:30 Oxygen Flow Rate (L/min) 3 Oxygen Delivery Method Nasal Cannula Weight: 279 lb 15.793 oz Body Mass Index (BMI) 40.1 Intake & Output: Intake and Output for Last 24 Hours 11/08/21 11/09/21 11/10/21 23:59 23:59 23:59 Intake Total 590 / 590 1870 / 1870 495 / 495 Output Total 2200 / 3350 3275 / 3275 Balance 590 / 590 -330 / -1480 -2780 / -2780 Lab / Micro Data Result Diagrams: 11/10/21 02:42 11/10/21 02:42 Labs: Laboratory Results - last 24 hr 11/09/21 15:22: POC Glucose 278 H 11/09/21 22:44: POC Glucose 292 H 11/10/21 02:42: Vancomycin Trough 20.0 H 11/10/21 02:42: WBC 18.5 H, RBC 3.89 L, Hgb 10.6 L, Hct 34.2 L, MCV 87.9, MCH 27.2, MCHC 31.0 L, RDW Std Deviation 42.5, RDW Coeff of James 13.2, Plt Count 157, MPV 11.6, Immature Gran % (Auto) 0.600, Neut % (Auto) 85.8 H, Lymph % (Auto) 7.1 L, [place] % (Auto) 6.1, Eos % (Auto) 0.1, Baso % (Auto) 0.3, Absolute Neuts (auto) 15.9 H, Absolute Lymphs (auto) 1.31, Nucleated RBC % 0 11/10/21 02:42: Sodium 138, Potassium 4.1, Chloride 100, Carbon Dioxide 34.0 H, Anion Gap 4 L, BUN 32 H, Creatinine 1.29, Estim Creat Clear Calc 61.30, Est GFR (MDRD) Af Amer 72, Est GFR (MDRD) Non-Af 60, BUN/Creatinine Ratio 24.8 H, Glucose 303 H, Calcium 9.0, Total Bilirubin 0.50, AST 13 L, ALT 18, Alkaline Phosphatase 77, Total Protein 6.9, Albumin 2.9 L, Globulin 4.0, Albumin/Globulin Ratio 0.7 L 11/10/21 07:59: POC Glucose 267 H 11/10/21 11:55: POC Glucose 252 H Micro: Microbiology 11/08/21 14:55 Urine, Clean Catch Urine Culture - Preliminary Culture exhibits no growth. 11/08/21 Unknown Urine Catheter - Catheter Legionella Antigen - Final 11/08/21 Unknown Urine Catheter - Catheter Streptococcus pneumoniae Antigen (M - Final 11/08/21 15:04 Nasal Secretion SARS-CoV-2 Antigen (Rapid) - Final Physical Exam Const alert and oriented x3 HEENT head/scalp atraumatic and moist oral mucous membranes Head and Scalp: normocephalic Eyes PERRL, EOMs intact bilaterally and conjunctivae normal Neck no lymphadenopathy, supple and no JVD Resp normal respiratory effort, no retractions, no use of accessory muscles and clear to auscultation bilaterally Cardio regular rate, regular rhythm, no murmurs and no JVD GI normal to inspection, nondistended, normoactive bowel sounds, soft to palpation and non-tender Extremity normal to inspection, full ROM and no clubbing, cyanosis or edema Skin no rashes or lesions noted, no wounds, skin turgor normal and no jaundice Neuro CN's II-XII intact bilaterally Psych affect normal Assessment & Plan Assessment/Plan (1) Aspiration pneumonia: (2) Acute respiratory failure with hypoxia: PLAN: Day 2 Discharge planning: To be determined. 1) acute hypoxic respiratory failure secondary to suspected aspiration pneumonia. Patient still reports feeling unwell as he reports breaking into diffuse sweats and is reporting abdominal pain. Patient has a worsening leukocytosis, WBC is currently at 18.5. Blood culture still pending. Legionella and strep pneumo urinary antigens negative, rapid Covid negative, urine culture demonstrates no growth. Continue Zosyn and vancomycin, await results of blood cultures. 2) hypertensive urgency Improved, continue carvedilol, spironolactone and amlodipine. 3) DM2 Continue Accu-Cheks with sliding scale insulin, continue glargine. 4) H/O aspiration pneumonia MBS from 09/04/2021: Swallow function is characterized by: reduced oral clearance w/ piecemeal deglutition pattern utilized and mild residue retention on the oral tongue premature pharyngeal bolus entry w/ suboptimal bolus location upon swallow onset delayed swallow onset w/ liquid pooling to the pyriform sinuses before initiating swallow reduced laryngeal elevation and anterior hyoid excursion resulted in delayed and incomplete laryngeal vestibule despite incomplete laryngeal vestibule closure, the patient maintained airway protection with NO penetration/aspiration across all trials. mild residue retention w/in the pyriforms post deglutition, sufficiently cleared w/ a double swallow incomplete PES distention w/ appearance consistent w/ anterior esophageal webbing SEE PACS IMAGES WITH RED ARROWS for further review (patient underwent endoscopy earlier this date w/ no mention of abnormal upper esophagus) moist cough noted several minutes after MBS conclusion w/ patient reporting frequent coughing after meals; cannot rule out reflux aspiration as a contributing factor in recurrent PNA He has been approved for regular by in the past 5) DVT prophylaxis - Lovenox Patient seen by Crow Rollins PA-C, under the supervision of Dr. Linder. Documented by User: Dr. Sean Linder MD 11/10/21 16:12 Objective Data Lab / Micro Data Result Diagrams: 11/10/21 02:42 11/10/21 02:42 Assessment & Plan Addt'l Comments This patient was seen in conjunction with Corw Rollins PA-C. I have independently interviewed and examined the patient and reviewed pertinent historical, laboratory, and other data. Please refer to Crow Rollins PA-C's note for details of this patient's presentation, findings, and recommendations. I have reviewed Crow Rollins PA-C's note and concur with documented findings. In brief, patient is a 61-year-old gentleman with history of bronchiectasis with multiple admissions recurrent pneumonia admitted with progressive shortness of breath Physical Examination: GENERAL: cooperative HEENT: Atraumatic; EYES; Anicteric, Normal Conjunctiva NECK; supple, normal thyroid, RESPIRATORY: Diminished to auscultation CARDIOVASCULAR: Regular S1 S2, MUSCULOSKELETAL: no muscle waisting NEURO: Awake; no lateralizing signs. SKIN: No Rash PSYCH; Flat affect Assessment: 1. Recurrent pneumonia 2. Bronchiectasis 3. 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 Class III obesity with BMI of 40.3 5. Coronary artery disease 6. Diabetic polyneuropathy 7. Chronic congestive heart failure with preserved ejection fraction 8. Obstructive sleep apnea 9. Depression with anxiety 10. GERD 11. BPH 12. Hypertension 13. DVT prophylaxis Recommendations: 1. I have discussed the results of my overview and impressions with the patient 2. Options for management were reviewed Charges/Coding Visit Charges Inpatient E&M: 16168 [facility] Hosp L3
--- NOTE | 2021-11-10 16:10 | CASEMGMT ---
Readmission chart review: 10/25-10/26/21 Acute hypoxemic resp failure 2nd aspiration 11/08-current Aspiration pna Pt has had 6 ED only visits in 2020 and 12 ED visits w/ resulting admissions in 2020, 9 of which were admissions specifically for pna/sepsis r/t aspiration. Pt is active with [facility] but has been declining speech therapy and declined last nurse visit with them per Sylvia at [facility]. Per Michelle at [facility], pt had palliative referral sent on a previous admission and was seen by them while here during that visit but has declined for them to come to house and hung up last week when they completed f/u call. Pt never did sign with palliative. Pt was referred to [facility] but they put him on hold until [facility] finished. Pt no showed w/ Dr. Rodriguez on 10/31/21 but did see Kevin that same day in the am. Pt did f/u with Dr. Rodriguez on 11/07/21 then and he offered pt PEG vs referral for Malinda fundiplication but pt/sig other declined surgery at all at this time. Pt is on 4L continuous home oxygen and unsure how compliant he is with meds/diet. Speech saw pt this am and made him NPO, pending repeat MBS 11/11/21. Last MBS was 09/04/21. Dr. Tompkins does recommend ENT referral for vocal cord dysfunction and there is mention in note about possible parkinsons but pt told Dr. Tompkins that he does not want to be told he is getting worse or that he has any severe life threatening disease. SW did discuss pt getting a counselor/therapist at a previous visit and pt did f/u with Kevin for same. This RN CM will f/u with pt regarding name of psychiatrist/appt. Pt no-showed for appt with [facility] pulmonology in August and does not f/u with them until Dec 2021. CM to follow for further discharge planning/needs. Yessica JENKINS CM
[2021-11-10 17:35] LABS: Bedside Glucose 242 mg/dL (70-110)
[2021-11-10] MEDS: traZODone 100 MG Tablet PO (21:24)
[2021-11-10] MEDS: Atorvastatin Calcium 80 MG Tablet PO (21:25)
[2021-11-10 23:50] LABS: Bedside Glucose 241 mg/dL (70-110)
[2021-11-11] VITALS (9 sets, daily range): BP systolic 147–196; BP diastolic 68–114; PULSE 57–78; RESP 16–20; TEMP 36.6–37.2; O2SAT 95–97; BMI 40.1
[2021-11-11] MEDS: Glycerin/Hypromellose/PEG400 15 ml Bottle 2 DRP EACH EYE ×9 (00:15→23:02)
[2021-11-11] MEDS: hydrALAZINE 20 MG/ML Vial 10 MG IV ×2 (03:23→23:23)
--- NOTE | 2021-11-11 04:13 | CPS ---
pt requested not to wear BIPAP tonight
[2021-11-11] MEDS: busPIRone 15 MG TABLET 7.5 MG PO ×3 (06:17→21:07)
[2021-11-11] MEDS: Insulin Lispro 100 UNIT/ML INSULN.PEN SC ×3 (06:57→16:43)
[2021-11-11] MEDS: Ipratropium/Albuterol Sulfate 3 ML AMPUL.NEB INHALATION ×2 (07:03→18:52)
[2021-11-11 07:06] LABS: Bedside Glucose 218 mg/dL (70-110)
[2021-11-11] MEDS: Acetaminophen 325 MG Tablet 650 MG PO (09:16)
[2021-11-11] MEDS: Oxymetazoline 0.05% 1 SPRAY SPRAY.BTL NASAL ×2 (09:16→21:13)
[2021-11-11] MEDS: ALPRAZolam 0.5 MG Tablet PO ×2 (09:16→21:17)
[2021-11-11] MEDS: Aspirin E.C. 81 MG Tablet PO (09:18)
[2021-11-11] MEDS: Spironolactone 25 MG Tablet 12.5 MG PO (09:18)
[2021-11-11] MEDS: FLUoxetine 20 MG Capsule PO (09:18)
[2021-11-11] MEDS: Carvedilol 25 MG Tablet PO ×2 (09:18→21:08)
[2021-11-11] MEDS: Losartan Potassium 25 MG Tablet PO (09:18)
[2021-11-11] MEDS: amLODIPine 2.5 MG Tablet PO (09:18)
[2021-11-11] MEDS: Pantoprazole Sodium 20 MG Tablet PO (09:18)
[2021-11-11] MEDS: Furosemide 20 MG Tablet PO (09:18)
[2021-11-11] MEDS: Clopidogrel Bisulfate 75 MG Tablet PO (09:18)
[2021-11-11] MEDS: Isosorbide Mononitrate 30 MG Tablet PO (09:18)
--- NOTE | 2021-11-11 09:36 | CASEMGMT ---
Addendum entered by Becca Christensen 11/11/21 10:37: Pt also voices numerous questions about living with PEG tube and this RN CM notified [place], [employer] intern, to speak with pt regarding same, voices understanding and into room. Yessica JENKINS CM Addendum entered by Becca Christensen 11/11/21 10:31: This RN CM to room and pt is upset after discussion with hospitalist today. Pt is shaking and states 'I want to live, I want that tube.' Pt states would like to discuss PEG tube with Dr. Rodriguez and Kevyn PA aware. Pt scheduled to have MBS at 12N today. Pt states sig other will also be coming in and doesn't want to make decisions without her. CM to follow. Yessica JENKINS CM Addendum entered by Becca Christensen 11/11/21 09:37: This RN CM received message from Sylvia at [facility] stating that pt declined speech ZULMA the last 3-4 returns to home. Yessica JENKINS CM Original Note: This RN CM to room to speak with pt regarding d/c plan/goals but pt is on phone at this time. Dr. Linder states he did speak with pt this am regarding goals of care and pt wanted to discuss with family. Yessica JENKINS CM
[2021-11-11 11:13] LABS: Absolute Lymphocyte Count 1.22 X10^3/uL (0.83-4.51); Absolute Neutrophil Count 8.8 X10^3/uL (2.0-7.7); Basophil# 0.04 X10^3/uL; Basophil% 0.4 % (0-1); Eosinophil# 0.07 X10^3/uL; Eosinophils% 0.6 % (0-5); Hematocrit 33.8 % (40-54); Hemoglobin 10.3 g/dL (13.0-16.5); Lymphocyte # 1.22 X10^3/ul (0.83-4.51); Mean Corp Hgb Conc 30.5 g/dL (32-36); Mean Corpuscular Volume 88.5 fL (80-94); Monocyte# 0.96 X10^3/uL; Monocyte% 8.7 % (0-10); NRBC Flagged by Analyzer 0 % (0-5); Neutrophil # 8.76 X10^3/uL (2.7-7.7); Neutrophil % 78.9 % (47-70); Platelet Count 153 K/mm3 (150-450); RBC Distribution Width CV 13.4 % (11.6-14.6); RBC Distribution Width SD 43.8 fl (35.1-43.9); Red Blood Count 3.82 M/mm3 (4.6-6.2); White Blood Count 11.1 K/mm3 (4.4-11.0)
[2021-11-11 11:26] LABS: Anion Gap 5 (5-15); BUN 24 mg/dL (7-18); BUN/Creat Ratio 20.3 RATIO (10-20); Calcium,Total 8.9 mg/dL (8.5-10.1); Chloride 106 mmol/L (98-107); Creatinine, Serum 1.18 mg/dL (0.70-1.30); EST Glomerular Filtration Rate 66 mL/min (>60); Est Glom Filt Rate - Afr Amer 80 mL/min (>60); Estimated Creatinine Clearance 67.02 ml/min; Glucose 194 mg/dL (74-106); Sodium Level 143 mmol/L (136-145)
[2021-11-11 12:05] LABS: Bedside Glucose 181 mg/dL (70-110)
--- NOTE | 2021-11-11 12:45 | PCM.PN.HOSP ---
Documented by User: Crow SOLARES 11/11/21 12:51 Subjective Subjective Patient is a 61-year-old male comfortably resting in bed, alert and orient x3. Patient reports that he feels overall better from yesterday. Denies development of any new symptoms overnight. Does not appear in acute distress. Objective Data Objective Data Vital Signs: Vital Signs Temp Pulse Resp BP Pulse Ox 97.9 F 57 L 16 147/68 H 96 11/11/21 09:15 11/11/21 10:51 11/11/21 09:15 11/11/21 10:51 11/11/21 09:15 Oxygen Flow Rate (L/min) 2 Oxygen Delivery Method Nasal Cannula Weight: 279 lb 15.793 oz Body Mass Index (BMI) 40.1 Intake & Output: Intake and Output for Last 24 Hours 11/09/21 11/10/21 11/11/21 23:59 23:59 23:59 Intake Total 1870 / 1870 820 / 820 435 / 435 Output Total 2200 / 3350 3900 / 3900 1000 / 1000 Balance -330 / -1480 -3080 / -3080 -565 / -565 Lab / Micro Data Result Diagrams: 11/11/21 10:45 11/11/21 10:45 Labs: Laboratory Results - last 24 hr 11/10/21 17:14: POC Glucose 242 H 11/10/21 23:33: POC Glucose 241 H 11/11/21 06:55: POC Glucose 218 H 11/11/21 10:45: Sodium 143, Potassium 4.0, Chloride 106, Carbon Dioxide 32.0, Anion Gap 5, BUN 24 H, Creatinine 1.18, Estim Creat Clear Calc 67.02, Est GFR (MDRD) Af Amer 80, Est GFR (MDRD) Non-Af 66, BUN/Creatinine Ratio 20.3 H, Glucose 194 H, Calcium 8.9 11/11/21 10:45: WBC 11.1 H, RBC 3.82 L, Hgb 10.3 L, Hct 33.8 L, MCV 88.5, MCH 27.0, MCHC 30.5 L, RDW Std Deviation 43.8, RDW Coeff of James 13.4, Plt Count 153, MPV 12.0, Immature Gran % (Auto) 0.400, Neut % (Auto) 78.9 H, Lymph % (Auto) 11.0 L, [place] % (Auto) 8.7, Eos % (Auto) 0.6, Baso % (Auto) 0.4, Absolute Neuts (auto) 8.8 H, Absolute Lymphs (auto) 1.22, Nucleated RBC % 0 11/11/21 11:52: POC Glucose 181 H Micro: Microbiology 11/08/21 14:55 Urine, Clean Catch Urine Culture - Final Culture exhibits no growth. 11/08/21 14:50 Blood Culture (Wb) - Right Hand Bacteria Detection (PCR) - Final 11/08/21 14:50 Blood Culture (Wb) - Right Hand Blood Culture - Preliminary 11/08/21 Unknown Urine Catheter - Catheter Legionella Antigen - Final 11/08/21 Unknown Urine Catheter - Catheter Streptococcus pneumoniae Antigen (M - Final 11/08/21 15:04 Nasal Secretion SARS-CoV-2 Antigen (Rapid) - Final Physical Exam Const alert, oriented x3 and no apparent distress HEENT head/scalp atraumatic and moist oral mucous membranes Head and Scalp: normocephalic Eyes PERRL, EOMs intact bilaterally and conjunctivae normal Neck no lymphadenopathy, supple and no JVD Resp normal respiratory effort, no retractions, no use of accessory muscles and clear to auscultation bilaterally Cardio regular rhythm, no murmurs and no JVD Rate: bradycardia GI normal to inspection, nondistended, normoactive bowel sounds, soft to palpation and non-tender Extremity normal to inspection, full ROM and no clubbing, cyanosis or edema Skin no rashes or lesions noted, no wounds and skin turgor normal Neuro CN's II-XII intact bilaterally Psych affect normal Assessment & Plan Assessment/Plan (1) Aspiration pneumonia: (2) Acute respiratory failure with hypoxia: PLAN: Day 3 Discharge planning: To be determined. 1) acute hypoxic respiratory failure secondary to suspected aspiration pneumonia. Patient reports feeling much improved from yesterday, patient is currently satting 93% on 2 L via nasal cannula. Leukocytosis has also improved, WBC is currently 11,000. Blood culture still pending. Legionella and strep pneumo urinary antigens negative, rapid Covid negative, urine culture demonstrates no growth. Continue Zosyn and vancomycin, await results of blood cultures. Patient to discuss PEG tube placement with Dr. Rodriguez. 2) hypertensive urgency Improved, continue carvedilol, spironolactone and amlodipine. 3) DM2 Continue Accu-Cheks with sliding scale insulin, continue glargine. 4) H/O aspiration pneumonia MBS from 09/04/2021: Swallow function is characterized by: reduced oral clearance w/ piecemeal deglutition pattern utilized and mild residue retention on the oral tongue premature pharyngeal bolus entry w/ suboptimal bolus location upon swallow onset delayed swallow onset w/ liquid pooling to the pyriform sinuses before initiating swallow reduced laryngeal elevation and anterior hyoid excursion resulted in delayed and incomplete laryngeal vestibule despite incomplete laryngeal vestibule closure, the patient maintained airway protection with NO penetration/aspiration across all trials. mild residue retention w/in the pyriforms post deglutition, sufficiently cleared w/ a double swallow incomplete PES distention w/ appearance consistent w/ anterior esophageal webbing SEE PACS IMAGES WITH RED ARROWS for further review (patient underwent endoscopy earlier this date w/ no mention of abnormal upper esophagus) moist cough noted several minutes after MBS conclusion w/ patient reporting frequent coughing after meals; cannot rule out reflux aspiration as a contributing factor in recurrent PNA He has been approved for regular by in the past 5) DVT prophylaxis - Lovenox Patient seen by Crow Rollins PA-C, under the supervision of Dr. Linder. Documented by User: Dr. Sean Linder MD 11/11/21 13:16 Objective Data Lab / Micro Data Result Diagrams: 11/11/21 10:45 11/11/21 10:45 Assessment & Plan Addt'l Comments This patient was seen in conjunction with Crow Rollins PA-C. I have independently interviewed and examined the patient and reviewed pertinent historical, laboratory, and other data. Please refer to Crow Rollins PA-C's note for details of this patient's presentation, findings, and recommendations. I have reviewed Crow Rollins PA-C's note and concur with documented findings. In brief, patient is a 61-year-old gentleman with history of bronchiectasis with multiple admissions recurrent pneumonia admitted with progressive shortness of breath 11/11/2021; patient breathing still remains labored. He is scheduled to undergo modified barium swallow. Did go over previous recommendation from GI including undergoing PEG tube placement. Patient was to have a discussion with his family and GI prior to making any decision Physical Examination: GENERAL: cooperative HEENT: Atraumatic; EYES; Anicteric, Normal Conjunctiva NECK; supple, normal thyroid, RESPIRATORY: Diminished to auscultation CARDIOVASCULAR: Regular S1 S2, MUSCULOSKELETAL: no muscle waisting NEURO: Awake; no lateralizing signs. SKIN: No Rash PSYCH; Flat affect Assessment: 1. Recurrent pneumonia 2. Bronchiectasis 3. 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 Class III obesity with BMI of 40.3 5. Coronary artery disease 6. Diabetic polyneuropathy 7. Chronic congestive heart failure with preserved ejection fraction 8. Obstructive sleep apnea 9. Depression with anxiety 10. GERD 11. BPH 12. Hypertension 13. DVT prophylaxis Recommendations: 1. I have discussed the results of my overview and impressions with the patient 2. Options for management were reviewed Charges/Coding Visit Charges Inpatient E&M: 38080 [facility]s Hosp L3 Hospital Course Imaging Results Imaging Results: 11/11/21 12:25 Alexisie Swallow [Swallowing Function w/Video] [RAD] Urgent Operations None
--- NOTE | 2021-11-11 13:10 | ST.MBS ---
Modified Barium Swallow - Patient Information Study Date: 11/11/21 Study Time: 12:00 Direct Billable Minutes: 100 Total Minutes procedure & reportin Diagnosis: Dysphagia, unspecified (R13.10) Referring Physician: Sean Linder Reason for Referral: Reassess swallow function and aspiration risk due to history of silent aspiration and recurrent PNA. Medical History: Alexei is a 61-year-old white male who presented to the emergency department at [facility] 11/08/21 with shortness of breath and saturations in the 80s. The patient has a history of recurrent aspiration pneumonia and bronchiectasis and reports that he aspirated twice yesterday while eating liquid foods. The patient was on 4 L at home and had oxygen saturations in the 80s cannula and he was therefore brought to the emergency department by EMS on a nonrebreather. He was 89% on nonrebreather and BiPAP was placed with the patient having significant improvement in oxygen saturations up to 98%. In the ED he had a 1 episode of vomiting and he did desaturate to the 70s when they took his BiPAP off. In the ED he was given vancomycin and Zosyn and blood cultures were obtained in the ED. Rapid COVID was negative. PMH includes silent aspiration, aspiration pneumonia, COPD, bronchiectasis with exacerbation, anxiety, chronic respiratory failure, mood disorder, HTN, NSTEMI, GERD, DM Type II, gastroparesis (SEE H&P for full past medical history). 09/04/21 MBS Revealed no laryngeal penetration/aspiration across all trials. Recommendations - Regular Texture (IDDSI: 7)/Thin Liquid (IDDSI: 0). Compensatory Strategies Recommended: reduced bolus volume (small bites/sips), reduced rate of intake (eat slowly), double swallow as needed to clear oral/pharyngeal residue, seated upright at 90 degrees during PO intake, remain upright for 30-60 minutes post meal (GERD precaution). 11/07/2021 ? The pt met with entry level accountant Dr. Rodriguez regarding recurrent aspiration pneumonia and GERD. They discussed in detail regarding a feeding tube versus referral for Malinda fundoplication. Pt declined surgery at that time due to his health. Current Diet Ordered: NPO with sips and chips Dentition: Missing Teeth - Missing majority of upper and lower dentition. Mental Status: WNL Respiratory Status: Oxygenating on 3L/M nasal cannula - Penetration-Aspiration Scale Penetration-Aspiration Scale: OBJECTIVE ASSESSMENT OF SWALLOW FUNCTION (QUANTITATIVE ? PER TRIAL): PENETRATION / ASPIRATION SCALE (SANCHEZ): 1 = does not enter airway 2 = enters airway/above vocal folds/ejected 3 = enters airway/above vocal folds/not ejected 4 = enters airway/contacts vocal folds/ejected 5 = enters airway/contacts vocal folds/not ejected 6 = enters airway/below vocal folds/ejected 7 = enters airway/below vocal folds/not ejected despite effort 8 = enters airway/below vocal folds/no effort VIDEOFLOROSCOPIC SCALE SCORE (SANCHEZ): Grade I = aspiration of material that has penetrated into the laryngeal vestibule, intact cough reflex Grade II = aspiration < 10 % of the bolus, intact cough reflex Grade III = aspiration of < 10 % of the bolus, reduced cough reflex or aspiration of > 10 % of the bolus, intact cough reflex Grade IV = aspiration of > 10 % of the bolus, reduced cough reflex - Penetration-Aspiration Scale Score Thin Liquid via teaspoon Result: 1= does not enter airway Thin Liquid via teaspoon Trial 2 Result: 1= does not enter airway Thin Liquid via small single sip from cup Result: 1= does not enter airway Thin Liquid via sequential sips from cup Result: 2= enter airway/above vocal folds/ejected [place] Thick Liquid via small single sip from cup Result: 1= does not enter airway Honey Thick Liquid via small single sip from cup Result: 1= does not enter airway Pudding Result: 1= does not enter airway Cookie Result: 1= does not enter airway Thin Liquid via single sip from straw Result: 1= does not enter airway Thin Liquid via sequential sips from straw Result: 1= does not enter airway - Oral Phase Labial Seal: No Labial Escape Tongue Control During Bolus Hold: Posterior escape of less than half of bolus Bolus Preparation/Mastication: Slow prolonged chewing/mashing with complete recollection Bolus Transport/Lingual Motion: Repetitive/disorganized tongue motion Oral Residue: Residue collection on oral structures - Pharyngeal Phase Initiation of Pharyngeal Swallow: Bolus head in pyriforms - Observed with sequential sips of thin liquids. Soft Palate Elevation: Trace column of contrast/air between soft palate and pharyngeal wall Laryngeal Elevation: Partial superior movement thyroid cart/partial apprx aryt-epig petiole Anterior Hyoid Excursion: Partial anterior movement Epiglottic Movement: Partial inversion Laryngeal Vestibule Closure at Height of Swallow: Incomplete; narrow column of air/contrast in laryngeal vestibule Pharyngeal Stripping Wave: Present - complete Pharyngoesophageal Segment Opening: Parital distension and partial duration; parital obstruction of flow Tongue Base Retraction: Trace column of contrast between tongue base & post. pharyngeal wall Pharyngeal Residue: Collection of residue within or on pharyngeal structures - Esophageal Phase Esophageal Clearance: Esophageal retention - Treatment Strategies Effects of treatment strategies attemped:: Decreased bolus rate = Effective. Decreased bolus size = Effective in reducing pharyngeal residue. Double swallow = Effective in reducing pharyngeal residue. - Diagnosis/Impression Diagnosis: Mild oropharyngeal phase dysphagia (R13.12) Impression: The oral phase of the swallow is primarily marked by prolonged mastication and decreased bolus control, which resulted in premature posterior spillage of cookie trial. The patient is missing a majority of his dentition. He reported recent coughing episode consuming beans. Will recommend ground textures to decrease mastication needs with intake. The patient has mild delay initiating swallow; however, swallow of sequential sips became increasingly delayed with sequential sips of thin liquids initiating in the pyriforms. The pharyngeal phase of the swallow is marked by mildly decreased laryngeal elevation, anterior hyoid excursion, and decreased duration of UES opening. The patient has mild pharyngeal residues that decrease with use of double swallow. He did not present with aspiration during the study. For sequential sips of thin liquids via cup, the patient had trace penetration of contrast into the laryngeal vestibule with full ejection. Pt had delayed cough following sequential sip of thin liquids via straw; however, when fluoroscopy was turned on there was no contrast present in the laryngeal vestibule or airway. Cannot rule out reflux aspiration as a contributing factor in recurrent PNA. - Recommendations Diet: Mechanical Soft Textures - Minced and Moist Textures (IDDSI Level 5), Thin Liquids Comment: Smaller, more frequent meals throughout the day. Compensatory Strategies: Small Bites, Small Sips, Slow Rate, Multiple Swallows - Intermittent use of double swallows with food and drinks., Sitting upright, Remain sitting upright for 30 minutes after PO intake Recommend Repeat Modified Barium Swallow: TBD Need for Skilled Speech Therapy Services: Yes Comment: Will recommend the patient for continued dysphagia therapy to address deficits in oropharyngeal swallow function. Would consider the patient for oropharyngeal strengthening to improve lingual coordination, laryngeal elevation, anterior hyoid excursion, and duration of UES opening. The patient would benefit from thorough education regarding diet recommendations and recommended compensatory strategies. Education Completed: 1. Described result of evaluation., 7. Pt requires further education on strategies & risks. - Status Active ST Patient: Active - Contact Information [facility] Speech Therapy:: Marva Amaro M.A. [facility] Speech-Language Pathologist [facility] [address] [place] [address] [email or web address] [phone] 11/11/21 13:42
[2021-11-11] MEDS: Glucerna Shake 120 ML LIQUID PO ×3 (14:50→21:07)
[2021-11-11 16:24] LABS: Vancomycin, Trough Level 22.9 ug/mL (5.0-15.0)
--- NOTE | 2021-11-11 16:37 | PCM.RX.CS ---
Consult Pharmacy has been consulted to manage selected antiobiotic: Vancomycin Type of Consult: Follow-up Suspected Infection: Pneumonia Labs: Sodium 143 mmol/L (136-145) 11/11/21 10:45 Potassium 4.0 mmol/L (3.5-5.1) 11/11/21 10:45 Chloride 106 mmol/L (98-107) 11/11/21 10:45 Carbon Dioxide 32.0 mmol/L (21.0-32.0) 11/11/21 10:45 Anion Gap 5 (5-15) 11/11/21 10:45 BUN 24 mg/dL (7-18) H 11/11/21 10:45 Creatinine 1.18 mg/dL (0.70-1.30) 11/11/21 10:45 Est GFR (MDRD) Af Amer 80 mL/min (>60) 11/11/21 10:45 Est GFR (MDRD) Non-Af 66 mL/min (>60) 11/11/21 10:45 BUN/Creatinine Ratio 20.3 RATIO (10-20) H 11/11/21 10:45 Glucose 194 mg/dL (74-106) H 11/11/21 10:45 Vancomycin Trough 22.9 ug/mL (5.0-15.0) H 11/11/21 15:45 Microbiology: Microbiology 11/08/21 14:55 Urine, Clean Catch Urine Culture - Final Culture exhibits no growth. 11/08/21 14:50 Blood Culture (Wb) - Right Hand Bacteria Detection (PCR) - Final 11/08/21 14:50 Blood Culture (Wb) - Right Hand Blood Culture - Preliminary 11/08/21 Unknown Urine Catheter - Catheter Legionella Antigen - Final 11/08/21 Unknown Urine Catheter - Catheter Streptococcus pneumoniae Antigen (M - Final 11/08/21 15:04 Nasal Secretion SARS-CoV-2 Antigen (Rapid) - Final Goal Trough: 15-20 mcg/mL Pharmacy Plan for Drug Dosing: VANCOMYCIN LEVEL RECEIVED Current Vancomycin Dose: 1250mg q12h (0430,1630) Number of Doses Received: Vancomycin Level: 22.9 Hours Since Last Dose: 11 Renal Function: SrCr 1.18 Renal Function Trend: SrCr improving Lab/Micro: Vancomycin Plan/Comments: due to trough level >20, recommend holding current dose. will recheck level in the am on 11/12/21 Pending Level: 11/12/21 at 0400 Pharmacy Service will continue to monitor and adjust dosing as required. Follow-Up Labs: Trough Vancomycin - 11/12/21 at 0400
[2021-11-11 18:06] LABS: Bedside Glucose 218 mg/dL (70-110)
--- NOTE | 2021-11-11 18:52 | CPS ---
pt refusing to use bipap tonight
--- NOTE | 2021-11-11 20:55 | CON.PCM.GI_ITS ---
HPI Consult Data Date of Consult: 11/11/21 HPI Narrative HPI Narrative: REA HANNA, is a 61 M who presents 61-year-old male, with a history as outlined below, who presented to the emergency department on August 06 with shortness of breath and hypoxemia. The patient has a known history of restrictive lung disease and chronic hypoxemic respiratory failure with a baseline 3 L/min oxygen requirement. The patient has a history of frequent hospitalizations, most recently in June 2021, which was felt to be secondary to aspiration pneumonia. That was the first time that I got a chance to know him. He had a modified barium swallow at the beginning of June revealed evidence of silent aspiration. The patient did report that in the days leading up to his h ospitalization he did experience several episodes of emesis following ingestion of food. I had evaluated him and diagnosed him with gastroparesis that I thought was possibly contributing to his aspiration pneumonia. He has had a least eight episodes of aspiration pneumonia as per his . He came back on this visit worsening shortness of breath and was diagnosed again with aspiration pneumonia. I was asked to see him regarding a feeding tube to prevent recurrent aspiration pneumonia. Patient says that he has have a history of heartburn. He also admits to occasional esophageal dysphagia. He has never had an upper endoscopy he did spend shortness of breath. [facility] Medical History Acute and chronic respiratory failure Acute gout Amputation of one or more toes Anxiety Anxiety and depression Arrhythmia Aspiration into airway Aspiration pneumonia Atherosclerotic heart disease of [place] coronary artery without angina pectoris Bronchiectasis with (acute) exacerbation COPD (chronic obstructive pulmonary disease) CPAP (continuous positive airway pressure) dependence Depression Diabetes Essential hypertension Gastroparesis GERD (gastroesophageal reflux disease) History of aspiration pneumonia History of non-ST elevation myocardial infarction (NSTEMI) (08/2016) Hypertension Kidney stones Leg pain, right Migraines Mood disorder Non-smoker On home oxygen therapy Peripheral vascular occlusive disease Pneumonia Pulmonary nodule, left Right ankle pain Silent aspiration Sleep apnea Type 2 diabetes mellitus Vision loss of left eye Wound of left lower extremity Home Medications acetaminophen 1,000 mg PO QHS PRN PRN 02/11/21 [History Last Taken 09/01/21] atorvastatin 80 mg PO QHS 02/11/21 [History Last Taken 10/01/21] finasteride 5 mg PO DAILY 02/11/21 [History Last Taken 10/02/21] fluoxetine 40 mg PO DAILY 02/11/21 [History Last Taken 10/02/21] insulin lispro See Protocol SQ TIDCM 02/11/21 [History Last Taken 10/01/21] isosorbide mononitrate 30 mg PO DAILY 02/11/21 [History Last Taken 10/02/21] nitroglycerin 0.4 mg SL Q5M PRN 02/11/21 [History Last Taken 02/08/21] albuterol sulfate 90 mcg/actuation aerosol inhaler 2 puff INHALATION Q4H PRN #8.5 g 07/24/21 [Rx Last Taken 10/01/21] clotrimazole 1 applic TOPICAL BID PRN 08/06/21 [History Last Taken 3 Days Ago ~09/29/21] nystatin [Nyamyc] 1 applic TOPICAL BID PRN 08/06/21 [History Last Taken 3 Days Ago ~09/29/21] fluoxetine 20 mg capsule 20 mg PO DAILY cap 08/15/21 [History Last Taken 10/02/21] losartan 50 mg tablet 25 mg PO DAILY #90 tab 09/25/21 [Rx Last Taken 10/02/21] insulin detemir U-100 100 unit/mL (3 mL) subcutaneous pen 28 unit SUBCUT QHS ml 10/09/21 [History Last Taken Unknown] buspirone 7.5 mg tablet 7.5 mg PO TID #90 tab 10/10/21 [Rx Last Taken Unknown] pregabalin 75 mg capsule 75 mg PO BID #60 cap 10/10/21 [Rx Last Taken Unknown] alprazolam 0.5 mg tablet 0.5 mg PO BID PRN #60 tab 11/03/21 [Rx Last Taken Unknown] aspirin 81 mg tablet,delayed release 81 mg PO DAILY 11/05/21 [History Last Taken Unknown] furosemide 20 mg PO DAILY 11/08/21 [History Last Taken Unknown] metoclopramide HCl [Reglan] 5 mg PO BID 11/08/21 [History Last Taken Unknown] pantoprazole [Protonix] 20 mg PO DAILY 11/08/21 [History Last Taken Unknown] spironolactone 12.5 mg PO DAILY 11/08/21 [History Last Taken Unknown] carvedilol 25 mg tablet 25 mg PO BID #60 tab 11/10/21 [Rx Last Taken Unknown] clopidogrel 75 mg tablet 75 mg PO DAILY #30 tab 11/10/21 [Rx Last Taken Unknown] trazodone 100 mg tablet 100 mg PO QHS #30 tab 11/10/21 [Rx Last Taken Unknown] Allergy/AdvReac Type Severity Reaction Status Date / Time allopurinol AdvReac Vomiting Verified 11/08/21 13:54 Influenza Virus Vaccines AdvReac Vomiting Verified 11/08/21 13:54 pneumococcal vaccine AdvReac Vomiting Verified 11/08/21 13:54 Family History Mother Diabetes Heart disease CHF Father Heart disease MD/CAD Myocardial infarction Surgical History H/O lithotripsy History of angioplasty of peripheral vessel (2016) History of ankle surgery History of coronary artery stent placement (08/2016) History of left heart catheterization (11/15/17) History of thyroid surgery Hx of toe surgery Social History household members: spouse housing: apartment Smoking Status: Never smoker alcohol intake: never substance use type: does not use ROS Review of Systems ROS Unobtainable: other Constitutional Constitutional: Denies fatigue, fever(s), poor appetite, weight gain or weight loss ENT HEENT: Denies mouth lesions Cardiovascular Cardiovascular: Denies abdominal bloating, abdominal edema or abdominal pain Respiratory/Chest Respiratory/Chest: Denies change in mental status, change in phlegm color, chest congestion or chest tightness Gastrointestinal Gastrointestinal: Denies belching, bloating, change in bowel habits, change in stool character, chewing difficulty, coffee ground emesis, constipation, cramping, diarrhea, dyspepsia, dysphagia, early satiety, excessive flatus, fecal incontinence, heartburn, hematemesis, hematochezia, hemorrhoids, loose stools, melena, nausea, odynophagia, rectal bleeding, tenesmus, vomiting or weight changes Genitourinary Genitourinary: Denies abdominal discomfort, burning urination or itching Musculoskeletal Musculoskeletal: Reports as per HPI; Denies muscle weakness or myalgias Integumentary Integumentary: Denies jaundice Neurologic Neurologic: Denies lack of coordination or weakness Psychiatric Psychiatric: Denies confusion, depression, memory loss, mood swings, paranoia or suicidal ideation Endocrine Endocrinology: Denies systems reviewed and no addt'l complaints, except as documented Hematologic/Lymphatic Hematologic/Lymphatic: Denies anemia, easy bleeding, easy bruising or lymphadenopathy Allergic/Immunologic Allergic/Immunologic: Denies systems reviewed and no addt'l complaints, except as documented Physical Exam Const alert General Appearance: cooperative Orientation / Consciousness: oriented to person HEENT hearing grossly normal bilaterally Head and Scalp: normal to inspection Face and Sinus: face symmetric Nose: external nose normal Mouth: oral and palatal mucosa normal Eyes conjunctivae normal General Eye: normal appearance of both eyes Neck full ROM General: normal visual inspection Lymph Lymphatic: no lymphadenopathy noted Chest inspection of chest normal and palpation of chest normal Chest: symmetrical chest wall rise Resp normal respiratory effort Effort and Inspection: able to speak in complete sentences Cardio regular rate GI non-distended Percussion: normal to percussion Rectal Exam: deferred Neuro Speech: speech normal Lab / Micro Data Result Diagrams: 11/11/21 10:45 11/11/21 10:45 Labs: Laboratory Results - last 24 hr 11/10/21 23:33: POC Glucose 241 H 11/11/21 06:55: POC Glucose 218 H 11/11/21 10:45: Sodium 143, Potassium 4.0, Chloride 106, Carbon Dioxide 32.0, Anion Gap 5, BUN 24 H, Creatinine 1.18, Estim Creat Clear Calc 67.02, Est GFR (MDRD) Af Amer 80, Est GFR (MDRD) Non-Af 66, BUN/Creatinine Ratio 20.3 H, Glucose 194 H, Calcium 8.9 11/11/21 10:45: WBC 11.1 H, RBC 3.82 L, Hgb 10.3 L, Hct 33.8 L, MCV 88.5, MCH 27.0, MCHC 30.5 L, RDW Std Deviation 43.8, RDW Coeff of James 13.4, Plt Count 153, MPV 12.0, Immature Gran % (Auto) 0.400, Neut % (Auto) 78.9 H, Lymph % (Auto) 11.0 L, [place] % (Auto) 8.7, Eos % (Auto) 0.6, Baso % (Auto) 0.4, Absolute Neuts (auto) 8.8 H, Absolute Lymphs (auto) 1.22, Nucleated RBC % 0 11/11/21 11:52: POC Glucose 181 H 11/11/21 15:45: Vancomycin Trough 22.9 H 11/11/21 16:41: POC Glucose 218 H Micro: Microbiology 11/08/21 14:55 Urine, Clean Catch Urine Culture - Final Culture exhibits no growth. 11/08/21 14:50 Blood Culture (Wb) - Right Hand Bacteria Detection (PCR) - Final 11/08/21 14:50 Blood Culture (Wb) - Right Hand Blood Culture - Preliminary Assessment & Plan Assessment/Plan (1) Aspiration pneumonia: PLAN: Surgical or percutaneous placed gastric tube would not prevent aspiration pneumonia. It can contribute to aspiration pneumonia or make aspiration pneumonia worse especially case of a hiatal hernia. However a surgically replaced or endoscopically placed GJ tube or J-tube would help aspi ration pneumonia. I called the patient's with the patient and I had a long conversation with him explaining to them what I would recommend for him. They would like to proceed with a GJ tube. I will order it and we can place it while he is in the hospital. Please hold all anticoagulation. (2) Gastroparesis: PLAN: Secondary to his medicines, obstructive sleep apnea, COPD and diabetes mellitus. Recommend Reglan 5 mg every 6 hours scheduled. Would also recommend Protonix 40 mg twice a day to hopefully further prevent gastric acid from regurgitating into the lungs. Charges/Coding Visit Charges Inpatient E&M: 43485 Init Hosp L2
[2021-11-11] MEDS: Atorvastatin Calcium 80 MG Tablet PO (21:06)
[2021-11-11] MEDS: traZODone 100 MG Tablet PO (21:08)
[2021-11-11] MEDS: Piperacil/Tazobactam 3.375 GM/50 ML ML IV (21:08)
[2021-11-11 22:05] LABS: Bedside Glucose 222 mg/dL (70-110)
[2021-11-11] MEDS: 0.9% Saline Lock 10 ML Syringe IV ×2 (23:02→23:24)
[2021-11-12] VITALS (17 sets, daily range): BP systolic 143–220; BP diastolic 64–100; PULSE 57–84; RESP 14–18; TEMP 36.2–37.1; O2SAT 93–97; BMI 40.1; BMI 37.7
[2021-11-12 04:00] LABS: Absolute Lymphocyte Count 1.33 X10^3/uL (0.83-4.51); Absolute Neutrophil Count 5.9 X10^3/uL (2.0-7.7); Basophil# 0.04 X10^3/uL; Basophil% 0.5 % (0-1); Eosinophil# 0.13 X10^3/uL; Eosinophils% 1.6 % (0-5); Hematocrit 34.5 % (40-54); Hemoglobin 10.5 g/dL (13.0-16.5); Lymphocyte # 1.33 X10^3/ul (0.83-4.51); Mean Corp Hgb Conc 30.4 g/dL (32-36); Mean Corpuscular Hgb 26.9 pg (27.0-32.0); Mean Corpuscular Volume 88.5 fL (80-94); Mean Platelet Vol. 11.7 fl (6.2-12.0); Monocyte# 0.91 X10^3/uL; NRBC Flagged by Analyzer 0 % (0-5); Neutrophil # 5.86 X10^3/uL (2.7-7.7); Neutrophil % 70.5 % (47-70); Platelet Count 145 K/mm3 (150-450); RBC Distribution Width CV 13.3 % (11.6-14.6); RBC Distribution Width SD 43.4 fl (35.1-43.9); White Blood Count 8.3 K/mm3 (4.4-11.0)
[2021-11-12 04:24] LABS: Anion Gap 3 (5-15); BUN 20 mg/dL (7-18); BUN/Creat Ratio 17.7 RATIO (10-20); Chloride 105 mmol/L (98-107); Creatinine, Serum 1.13 mg/dL (0.70-1.30); EST Glomerular Filtration Rate 70 mL/min (>60); Est Glom Filt Rate - Afr Amer 84 mL/min (>60); Estimated Creatinine Clearance 69.99 ml/min; Glucose 231 mg/dL (74-106); Potassium 3.9 mmol/L (3.5-5.1); Sodium Level 139 mmol/L (136-145)
[2021-11-12 04:26] LABS: Vancomycin, Random Level 15.4 ug/mL (0.0-15.0)
[2021-11-12] MEDS: 0.9% Saline Lock 10 ML Syringe IV ×2 (04:39→21:50)
--- NOTE | 2021-11-12 05:09 | PCM.RX.CS ---
Consult Pharmacy has been consulted to manage selected antiobiotic: Vancomycin Type of Consult: Follow-up Suspected Infection: Pneumonia Prior Doses of Antibiotics Received/Current Regimen: Medications Vancomycin HCl 1,250 mg/ (Sodium Chloride) 275 mls @ 167 mls/hr IV Q12H ISHAN Last Admin: 11/12/21 04:39 Dose: 167 mls/hr Labs: Sodium 139 mmol/L (136-145) 11/12/21 03:52 Potassium 3.9 mmol/L (3.5-5.1) 11/12/21 03:52 Chloride 105 mmol/L (98-107) 11/12/21 03:52 Carbon Dioxide 31.0 mmol/L (21.0-32.0) 11/12/21 03:52 Anion Gap 3 (5-15) L 11/12/21 03:52 BUN 20 mg/dL (7-18) H 11/12/21 03:52 Creatinine 1.13 mg/dL (0.70-1.30) 11/12/21 03:52 Est GFR (MDRD) Af Amer 84 mL/min (>60) 11/12/21 03:52 Est GFR (MDRD) Non-Af 70 mL/min (>60) 11/12/21 03:52 BUN/Creatinine Ratio 17.7 RATIO (10-20) 11/12/21 03:52 Glucose 231 mg/dL (74-106) H 11/12/21 03:52 Vancomycin Trough 22.9 ug/mL (5.0-15.0) H 11/11/21 15:45 Random Vancomycin 15.4 ug/mL (0.0-15.0) H 11/12/21 03:52 Microbiology: Microbiology 11/08/21 14:55 Urine, Clean Catch Urine Culture - Final Culture exhibits no growth. 11/08/21 14:50 Blood Culture (Wb) - Right Hand Bacteria Detection (PCR) - Final 11/08/21 14:50 Blood Culture (Wb) - Right Hand Blood Culture - Preliminary 11/08/21 Unknown Urine Catheter - Catheter Legionella Antigen - Final 11/08/21 Unknown Urine Catheter - Catheter Streptococcus pneumoniae Antigen (M - Final 11/08/21 15:04 Nasal Secretion SARS-CoV-2 Antigen (Rapid) - Final Weight used for dosin kg Estimated Creatinine Clearance: 90 Goal Trough: 15-20 mcg/mL Pharmacy Plan for Drug Dosing: Random vancomycin level was 15.4. Verified with dosing calculator that resumption of 1250mg q12h would be appropriate, especially with continued improvement to renal function. SCr now 1.13. Will draw a trough level in 4 doses. Pharmacy Service will continue to monitor and adjust dosing as required. Follow-Up Labs: Trough Vancomycin Labs to be done on [date and time ordered]: 11/13/21 @1600
[2021-11-12] MEDS: Piperacil/Tazobactam 3.375 GM/50 ML ML IV ×3 (05:13→21:49)
--- NOTE | 2021-11-12 05:55 | EKG12_ITS ---
Test Reason : MORNING EKG Blood Pressure : / mmHG Vent. Rate : 057 BPM Atrial Rate : 057 BPM P-R Int : 184 ms QRS Dur : 094 ms QT Int : 468 ms P-R-T Axes : 084 020 033 degrees QTc Int : 455 ms Sinus bradycardia Otherwise normal ECG Confirmed by ROLAND JOHNS, FAUSTINA ([id number]), newspaper editor managing SHARAN DOE ([id number]) on 11/14/2021 1:06:58 PM Referred By: DARRIN Confirmed By:FAUSTINA WATKINS MD
[2021-11-12] MEDS: Glycerin/Hypromellose/PEG400 15 ml Bottle 2 DRP EACH EYE ×3 (06:28→21:30)
[2021-11-12 06:45] LABS: Bedside Glucose 202 mg/dL (70-110)
[2021-11-12] MEDS: hydrALAZINE 20 MG/ML Vial 10 MG IV (09:29)
[2021-11-12] MEDS: Carvedilol 25 MG Tablet PO ×2 (09:31→21:35)
--- NOTE | 2021-11-12 11:58 | OP.EGD_ITS ---
Patient Name: Raheem Linda Procedure Date: 11/12/2021 10:59 AM Date of : 1960 Age: 61 Procedure: Upper GI endoscopy Indications: Dysphagia, Failure to respond to medical treatment Providers: Arjun Rodriguez DO Medicines: See the Anesthesia note for documentation of the administered medications Patient Profile: This is a 61 year old male. Refer to note in patient chart for documentation of history and physical. Patient has symptoms of dysphagia with both liquids and solids, chronic odynophagia and chronic vomiting. Complications: No immediate complications. Procedure: Pre-Anesthesia Assessment: - Prior to the procedure, a History and Physical was performed, and patient medications and allergies were reviewed. The patient is competent. The risks and benefits of the procedure and the sedation options and risks were discussed with the patient. All questions were answered and informed consent was obtained. Patient identification and proposed procedure were verified by the physician in the pre-procedure area. Mental Status Examination: alert and oriented. Airway Examination: normal oropharyngeal airway and neck mobility. Respiratory Examination: clear to auscultation. CV Examination: normal. Prophylactic Antibiotics: The patient does not require prophylactic antibiotics. Prior Anticoagulants: The patient has taken no previous anticoagulant or antiplatelet agents. ASA Grade Assessment: II - A patient with mild systemic disease. After reviewing the risks and benefits, the patient was deemed in satisfactory condition to undergo the procedure. The anesthesia plan was to use moderate sedation / analgesia (conscious sedation). Immediately prior to administration of medications, the patient was re-assessed for adequacy to receive sedatives. The heart rate, respiratory rate, oxygen saturations, blood pressure, adequacy of pulmonary ventilation, and response to care were monitored throughout the procedure. The physical status of the patient was re-assessed after the procedure. After obtaining informed consent, the endoscope was passed under direct vision. Throughout the procedure, the patient's blood pressure, pulse, and oxygen saturations were monitored continuously. The Endoscope was introduced through the mouth, and advanced to the proximal jejunum. The upper GI endoscopy was accomplished without difficulty. The patient tolerated the procedure well. Moderate Sedation: Moderate (conscious) sedation was administered by the endoscopy nurse and supervised by the endoscopist. The patient's oxygen saturation, heart rate, blood pressure and response to care were monitored. Total physician intraservice time was 15 minutes. Scope In: 11:11:42 AM Scope Out: 11:53:09 AM Total Procedure Duration Time 0 hours 41 minutes 27 seconds Findings: The examined esophagus was normal. Localized moderate inflammation characterized by congestion (edema), erosions and erythema was found in the prepyloric region of the stomach. A medium-sized hiatal hernia was present. The cardia and gastric fundus were normal on retroflexion. There is no endoscopic evidence of bleeding in the stomach. The examined duodenum was normal. Suspect gastroparesis due to absence of peristalsis. The patient was placed in the supine position for PEG placement. The stomach was insufflated to appose gastric and abdominal menjivar. A site was located in the body of the stomach with excellent transillumination for placement. The abdominal wall was marked and prepped in a sterile manner. The area was anesthetized with 1 mL of 0.5% lidocaine. The trocar needle was introduced through the abdominal wall and into the stomach under direct endoscopic view. A snare was introduced through the endoscope and opened in the gastric lumen. The guide wire was passed through the trocar and into the open snare. The snare was closed around the guide wire. The endoscope and snare were removed, pulling the wire out through the mouth. A skin incision was made at the site of needle insertion. The externally removable 20 Fr EndoVive Safety gastrostomy tube was lubricated. The G-tube was tied to the guide wire and pulled through the mouth and into the stomach. The trocar needle was removed, and the gastrostomy tube was pulled out from the stomach through the skin. The external bumper was attached to the gastrostomy tube, and the tube was cut to remove the guide wire. The final position of the gastrostomy tube was confirmed by relook endoscopy, the distal tip was secured to the bowel wall with a clip, and skin marking noted to be 4 cm at the external bumper. The final tension and compression of the abdominal wall by the PEG tube and external bumper were checked. A 14 Fr Bard tube was then passed through the gastric tube and advanced over a wire, which had been placed endoscopically to the jejunum. Appropriate position of the tip of the tube was confirmed endoscopically and then secured to the bowel wall with a clip. The feeding tube was capped, and the tube site cleaned and dressed. The examined jejunum was normal. Impression: - Normal esophagus. - Gastritis. - Medium-sized hiatal hernia. - Normal examined duodenum. - Gastroparesis, secondary to diabetes mellitus type II. - Normal examined jejunum. - An externally removable PEG-J placement was successfully completed. - No specimens collected. Recommendation: - [facility]. - Please follow the post-PEG recommendations including: Nutrition consult for formula and volume, external bolster 1 cm from abdominal wall, may place dressing under bumper after day 3, NPO x4 hrs then water today, may use PEG today for meds and water, may use PEG tomorrow for feedings, start using PEG today, check site for bleeding q 4 hrs and clean site with soap and water daily and dry thoroughly. - Continue present medications. Procedure Code(s): --- Professional --- 42819, Esophagogastroduodenoscopy, flexible, transoral; with directed placement of percutaneous gastrostomy tube G0500, Moderate sedation services provided by the same physician or other qualified health caregiver services home performing a gastrointestinal endoscopic service that sedation supports, requiring the presence of an independent trained observer to assist in the monitoring of the patient's level of consciousness and physiological status; initial 15 minutes of intra-service time; patient age 5 years or older (additional time may be reported with 65507, as appropriate) 48605, Unlisted procedure, small intestine CPT copyright 2017 [employer]. All rights reserved. The codes documented in this report are preliminary and upon imaging analyst review may be revised to meet current compliance requirements. Arjun Rodriguez DO 11/12/2021 11:57:45 AM This report has been signed electronically. Number of Addenda: 1 Note Initiated On: 11/12/2021 10:59 AM Addendum Number: 1 Addendum Date: 08/05/2022 7:17:37 AM MAC was used instead of moderate sedation for the patient. Arjun Rodriguez DO 08/05/2022 7:17:41 AM This report has been signed electronically.
--- NOTE | 2021-11-12 11:59 | OP.CCLET_ITS ---
08/05/2022 Doretha Brown MD [address] [place] [address] [place] [address] Re : Upper GI endoscopy procedure for Raheem Linda Dear Dr. Brown This procedure was performed on Friday, November 12, 2021. My impressions and recommendations are as follows: Impressions : - Normal esophagus. - Gastritis. - Medium-sized hiatal hernia. - Normal examined duodenum. - Gastroparesis, secondary to diabetes mellitus type II. - Normal examined jejunum. - An externally removable PEG-J placement was successfully completed. - No specimens collected. Recommendations : - [facility] to [facility] for [facility]. - Please follow the post-PEG recommendations including: Nutrition consult for formula and volume, external bolster 1 cm from abdominal wall, may place dressing under bumper after day 3, NPO x4 hrs then water today, may use PEG today for meds and water, may use PEG tomorrow for feedings, start using PEG today, check site for bleeding q 4 hrs and clean site with soap and water daily and dry thoroughly. - Continue present medications. My findings are described in the full procedure note, which is enclosed. If I can be of further assistance, please feel free to contact me at . Sincerely, Arjun Rodriguez, 11/12/2021 11:57:45 AM This report has been signed electronically.
[2021-11-12 12:15] LABS: Bedside Glucose 162 mg/dL (70-110)
--- NOTE | 2021-11-12 13:12 | PCM.PN.HOSP ---
Documented by User: Crow SOLARES 11/12/21 13:30 Subjective Subjective Patient is a 61-year-old male comfortably resting in bed after PEG-J placement, alert and orient x3. Patient has some significant eye irritation, although does not appear in acute distress. Objective Data Objective Data Vital Signs: Vital Signs Temp Pulse Resp BP Pulse Ox 98.6 F 57 L 18 161/70 H 96 11/12/21 13:03 11/12/21 13:03 11/12/21 13:03 11/12/21 13:03 11/12/21 13:03 Oxygen Flow Rate (L/min) 3 Oxygen Delivery Method Nasal Cannula Weight: 263 lb Body Mass Index (BMI) 37.7 Intake & Output: Intake and Output for Last 24 Hours 11/10/21 11/11/21 11/12/21 23:59 23:59 23:59 Intake Total 820 / 820 725 / 845 545 / 545 Output Total 3900 / 3900 1725 / 2025 1450 / 1450 Balance -3080 / -3080 -1000 / -1180 -905 / -905 Lab / Micro Data Result Diagrams: 11/12/21 03:52 11/12/21 03:52 Labs: Laboratory Results - last 24 hr 11/11/21 15:45: Vancomycin Trough 22.9 H 11/11/21 16:41: POC Glucose 218 H 11/11/21 21:27: POC Glucose 222 H 11/12/21 03:52: WBC 8.3, RBC 3.90 L, Hgb 10.5 L, Hct 34.5 L, MCV 88.5, MCH 26.9 L, MCHC 30.4 L, RDW Std Deviation 43.4, RDW Coeff of James 13.3, Plt Count 145 L, MPV 11.7, Immature Gran % (Auto) 0.400, Neut % (Auto) 70.5 H, Lymph % (Auto) 16.0 L, [place] % (Auto) 11.0 H, Eos % (Auto) 1.6, Baso % (Auto) 0.5, Absolute Neuts (auto) 5.9, Absolute Lymphs (auto) 1.33, Nucleated RBC % 0 11/12/21 03:52: Random Vancomycin 15.4 H 11/12/21 03:52: Hemoglobin A1c 8.0 H 11/12/21 03:52: Sodium 139, Potassium 3.9, Chloride 105, Carbon Dioxide 31.0, Anion Gap 3 L, BUN 20 H, Creatinine 1.13, Estim Creat Clear Calc 69.99, Est GFR (MDRD) Af Amer 84, Est GFR (MDRD) Non-Af 70, BUN/Creatinine Ratio 17.7, Glucose 231 H, Calcium 9.0 11/12/21 06:38: POC Glucose 202 H 11/12/21 09:25: POC Glucose 162 H Micro: Microbiology 11/08/21 14:14 Blood Culture (Wb) - Chest Blood Culture - Preliminary No growth in 48 hours. 11/08/21 14:50 Blood Culture (Wb) - Right Hand Bacteria Detection (PCR) - Final 11/08/21 14:50 Blood Culture (Wb) - Right Hand Blood Culture - Preliminary Presumptive Micrococcus spp. 11/08/21 14:55 Urine, Clean Catch Urine Culture - Final Culture exhibits no growth. 11/08/21 Unknown Urine Catheter - Catheter Legionella Antigen - Final 11/08/21 Unknown Urine Catheter - Catheter Streptococcus pneumoniae Antigen (M - Final 11/08/21 15:04 Nasal Secretion SARS-CoV-2 Antigen (Rapid) - Final Physical Exam Const alert, oriented x3 and no apparent distress HEENT head/scalp atraumatic and moist oral mucous membranes Head and Scalp: normocephalic Eyes PERRL, EOMs intact bilaterally and conjunctivae normal Neck no lymphadenopathy, supple and no JVD Resp normal respiratory effort, no retractions, no use of accessory muscles and clear to auscultation bilaterally Cardio regular rate, regular rhythm, no murmurs and no JVD GI normal to inspection, nondistended, normoactive bowel sounds, soft to palpation and non-tender Extremity normal to inspection, full ROM and no clubbing, cyanosis or edema Skin no rashes or lesions noted, no wounds, skin turgor normal and no jaundice Neuro CN's II-XII intact bilaterally Psych affect normal Assessment & Plan Assessment/Plan (1) Acute respiratory failure with hypoxia: (2) Aspiration pneumonia: PLAN: Day 4 Discharge planning: To be determined. 1) acute hypoxic respiratory failure secondary to suspected aspiration pneumonia. Patient reports feeling much improved from yesterday, patient is currently satting 96% on 2 L via nasal cannula. Leukocytosis has also improved, WBC is currently 8.3. Blood cultures show presumptive micrococcus, suspect contaminant. Legionella and strep pneumo urinary antigens negative, rapid Covid negative, urine culture demonstrates no growth. Patient had PEG J-tube placement yesterday per Dr. Rodriguez, management per Dr. Rodriguez. Continue Zosyn and vancomycin, if patient is stable through the night patient may be ready for discharge on 11/13/2021. 2) hypertensive urgency Improved, continue carvedilol, spironolactone and amlodipine. 3) DM2 Continue Accu-Cheks with sliding scale insulin, continue glargine. 4) H/O aspiration pneumonia MBS from 09/04/2021: Swallow function is characterized by: reduced oral clearance w/ piecemeal deglutition pattern utilized and mild residue retention on the oral tongue premature pharyngeal bolus entry w/ suboptimal bolus location upon swallow onset delayed swallow onset w/ liquid pooling to the pyriform sinuses before initiating swallow reduced laryngeal elevation and anterior hyoid excursion resulted in delayed and incomplete laryngeal vestibule despite incomplete laryngeal vestibule closure, the patient maintained airway protection with NO penetration/aspiration across all trials. mild residue retention w/in the pyriforms post deglutition, sufficiently cleared w/ a double swallow incomplete PES distention w/ appearance consistent w/ anterior esophageal webbing SEE PACS IMAGES WITH RED ARROWS for further review (patient underwent endoscopy earlier this date w/ no mention of abnormal upper esophagus) moist cough noted several minutes after MBS conclusion w/ patient reporting frequent coughing after meals; cannot rule out reflux aspiration as a contributing factor in recurrent PNA He has been approved for regular by in the past 5) DVT prophylaxis - Lovenox Patient seen by Crow Rollins PA-C, under the supervision of Dr. Linder. Documented by User: Dr. Sean Linder MD 11/12/21 13:56 Objective Data Lab / Micro Data Result Diagrams: 11/12/21 03:52 11/12/21 03:52 Assessment & Plan Addt'l Comments This patient was seen in conjunction with Crow Rollins PA-C. I have independently interviewed and examined the patient and reviewed pertinent historical, laboratory, and other data. Please refer to Crow Rollins PA-C's note for details of this patient's presentation, findings, and recommendations. I have reviewed Crow Rollins PA-C's note and concur with documented findings. In brief, patient is a 61-year-old gentleman with history of bronchiectasis with multiple admissions recurrent pneumonia admitted with progressive shortness of breath 11/11/2021; patient breathing still remains labored. He is scheduled to undergo modified barium swallow. Did go over previous recommendation from GI including undergoing PEG tube placement. Patient was to have a discussion with his family and GI prior to making any decision 11/12/2021 patient underwent upper GI endoscopy placement of a removable PEG?J tube placement Physical Examination: GENERAL: cooperative HEENT: Atraumatic; EYES; Anicteric, Normal Conjunctiva NECK; supple, normal thyroid, RESPIRATORY: Diminished to auscultation CARDIOVASCULAR: Regular S1 S2, MUSCULOSKELETAL: no muscle waisting NEURO: Awake; no lateralizing signs. SKIN: No Rash PSYCH; Flat affect Assessment: 1. Recurrent pneumonia 2. Bronchiectasis 3. 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 Class III obesity with BMI of 40.3 5. Coronary artery disease 6. Diabetic polyneuropathy 7. Chronic congestive heart failure with preserved ejection fraction 8. Obstructive sleep apnea 9. Depression with anxiety 10. GERD 11. BPH 12. Hypertension 13. DVT prophylaxis Recommendations: 1. I have discussed the results of my overview and impressions with the patient 2. Options for management were reviewed Charges/Coding Visit Charges Inpatient E&M: 67056 Subs Hosp L2
[2021-11-12 13:21] LABS: Bedside Glucose 176 mg/dL (70-110)
[2021-11-12] MEDS: Loratadine 10 MG Tablet PO (13:37)
[2021-11-12] MEDS: busPIRone 15 MG TABLET 7.5 MG PO ×2 (13:38→21:34)
[2021-11-12] MEDS: Glucerna Shake 120 ML LIQUID PO ×3 (13:38→21:44)
[2021-11-12] MEDS: Insulin Lispro 100 UNIT/ML INSULN.PEN SC (16:49)
[2021-11-12 16:56] LABS: Bedside Glucose 212 mg/dL (70-110)
--- NOTE | 2021-11-12 18:47 | CPS ---
pt has been declining use of bipap at night. And did tonight as well.
[2021-11-12] MEDS: Oxymetazoline 0.05% 1 SPRAY SPRAY.BTL NASAL (21:34)
[2021-11-12] MEDS: Atorvastatin Calcium 80 MG Tablet PO (21:34)
[2021-11-12] MEDS: traZODone 100 MG Tablet PO (21:35)
[2021-11-12] MEDS: ALPRAZolam 0.5 MG Tablet PO (21:44)
[2021-11-12 23:56] LABS: Bedside Glucose 332 mg/dL (70-110)
[2021-11-13] VITALS (10 sets, daily range): BP systolic 149–196; BP diastolic 77–112; PULSE 52–64; RESP 16–18; TEMP 36.7–36.9; O2SAT 95–98
[2021-11-13] MEDS: Piperacil/Tazobactam 3.375 GM/50 ML ML IV ×3 (06:44→22:10)
[2021-11-13] MEDS: Insulin Lispro 100 UNIT/ML INSULN.PEN SC ×3 (06:46→17:00)
[2021-11-13] MEDS: busPIRone 15 MG TABLET 7.5 MG PO (06:48)
[2021-11-13 06:56] LABS: Bedside Glucose 268 mg/dL (70-110)
[2021-11-13] MEDS: Oxymetazoline 0.05% 1 SPRAY SPRAY.BTL NASAL ×2 (08:29→21:53)
[2021-11-13] MEDS: FLUoxetine 20 MG Capsule PO (08:30)
[2021-11-13] MEDS: Glucerna Shake 120 ML LIQUID PO ×2 (08:30→14:30)
[2021-11-13] MEDS: Pantoprazole Sodium 20 MG Tablet PO (08:30)
[2021-11-13] MEDS: Isosorbide Mononitrate 30 MG Tablet PO (08:30)
[2021-11-13] MEDS: Furosemide 20 MG Tablet PO (08:30)
[2021-11-13] MEDS: Carvedilol 25 MG Tablet PO (08:30)
[2021-11-13] MEDS: Clopidogrel Bisulfate 75 MG Tablet PO (08:31)
[2021-11-13] MEDS: Losartan Potassium 25 MG Tablet PO (08:31)
[2021-11-13] MEDS: Loratadine 10 MG Tablet PO (08:31)
[2021-11-13] MEDS: Spironolactone 25 MG Tablet 12.5 MG PO (08:31)
[2021-11-13] MEDS: amLODIPine 2.5 MG Tablet PO (08:31)
[2021-11-13] MEDS: Glycerin/Hypromellose/PEG400 15 ml Bottle 2 DRP EACH EYE ×3 (08:33→22:11)
--- NOTE | 2021-11-13 08:46 | CPS ---
Pt continues to refuse the BIPAP, this R.T. pulled the machine because it is needed elsewhere.
[2021-11-13] MEDS: hydrALAZINE 20 MG/ML Vial 10 MG IV ×2 (08:54→20:33)
[2021-11-13] MEDS: 0.9% Saline Lock 10 ML Syringe IV ×2 (08:55→17:01)
--- NOTE | 2021-11-13 09:20 | CASEMGMT ---
Addendum entered by Becca Christensen 11/14/21 16:31: Call back from rep at [facility] and she states they do not stock the Vital AF in their warehouse and that the drop shipped Vital would not be delivered until tomorrow now. This RN CM spoke with supervisor vat house at [facility] to update on all, voices understanding. Per Deonte in [facility] pharmacy, [facility] nurse provided with needed supplies at this time. Per [facility], all other supplies should be delivered tomorrow. S[place]en RN CM Addendum entered by Everardo Lloyd 11/13/21 15:45: Rowena @ [facility] states she left w/She and has not heard back from her. ALICE PHOENIX to pt's room--She riggs, @ bedside. She was made aware Rowena would like to speak w/her. She placed call to Rowena while ALICE PHOENIX in room to make arrangements for remainder of supplies to be delivered to pt's home. Addendum entered by Everardo Lloyd 11/13/21 14:22: Rowena @ [facility]: [phone] Addendum entered by Everardo Lloyd 11/13/21 13:51: TC received from Rowena [employer] [facility] [employer] She states they received the order and the TF and a portion of the supplies have already been drop-shipped to pt's home. She states the laborer driver will deliver the pump, remainder of supplies, and possibly the pole (if it has arrived to [facility] by then) to pt's home tomorrow. She states she will reach out to pt's She riggs, to arrange the delivery of these remaining items. ALICE PHOENIX to room to talk w/pt and She riggs, who is at bedside at this time. Discussed [facility] w/pt and and made aware of [facility] drop-shipment today and that they will contact She for delivery arrangements for remainder of equip/supplies. Questions answered. Addendum entered by Everardo Lloyd 11/13/21 11:52: Script for enteral nutrition/tube feeding faxed to [facility] at this time, along w/nutrition services notes, and demographic sheet. TC to [facility] and spoke w/Lorenza re: new tube feed/enteral nutrition order. She was made aware plan for d/c home tomorrow. She states they do not have pole to hang TF bag from at this time--it is on back-order and they anticipate it will arrive @ end of this week. She states pump does not need to be hung higher than pt's abdomen, just the bag. ALICE PHOENIX informed her [facility] will be working w/pt and his fiance and they can assist w/ensuring this can be done. Pt made aware of same. TC to Jessica [facility]. She was provided w/enteral nutrition order and made aware pt will not be discharging until tomorrow. Addendum entered by Everardo Lloyd 11/13/21 09:58: ST recommend additional ST. Discussed this w/pt, as he has been refusing C ST. Pt states, It's because they come out right after the nurse and it's just too much all at once. It drives me nuts. If they throw too much at me all at once, I'll just say no to all of it. Pt states he would be more willing to be compliant with ST if they don't come to his home as frequently as 3 x's /week and if they could try and come a different day than SN. ST added to [facility] order. TC to Jessica @ [facility] and she was made aware of above. She states they will try and coordinate above request, if able. Addendum entered by Everardo Lloyd 11/13/21 09:53: Pt provided w/list of DME companies and states he has no preference of DME company for enteral feedings. Original Note: ALICE PHOENIX NOTE: Per Dr Linder, he anticipates discharging pt home today. ALICE PHOENIX to talk w/pt, who is sitting up in recliner chair in room. Therapy was just in to work w/pt. Pt states wishes to return home w/Resumption of [facility] services. He states his fiance is coming in today for education on PEG feedings/care and that she is willing/able to manage PEG @ home. Marva JENKINS, aware of education w/fiance and pt needed. Pt states he would also like a [facility] aide to assist w/bathing/dressing. Pt made aware aide does not provide other services such as cleaning/laundry/meals--that they just come in for bathing/dressing 2-3 x's/week and then leave. He voices understanding. He denies having other discharge planning needs/concerns at this time. TC to Jessica @ [facility] and she was made aware anticipate d/c home today and pt has new PEG/TF's and that fiance is willing/able to be educated on same. Jessica was also made aware pt would like [facility] aide as well. Jessica states she is not sure yet if SOC will be later today or tomorrow and she will contact this RN CM later today to confirm. Zelalem HECKN RN CM
[2021-11-13] MEDS: Jevity 1.5. 1,000 ML Bottle 240 ML GT (10:15)
[2021-11-13 11:55] LABS: Bedside Glucose 313 mg/dL (70-110)
--- NOTE | 2021-11-13 12:59 | PN.HOSP_ITS ---
Documented by User: Margarita Leger NP-Autumn 11/13/21 13:07 Subjective Subjective Patient seen and examined. Patient sitting in bed, complaining of continued hospitalization. Patient educated regarding need to stay and need to have home health set up along with supplies prior to patient going home. Patient voiced understanding but continued frustration. Objective Data Objective Data Vital Signs: Vital Signs Temp Pulse Resp BP Pulse Ox 98.0 F 62 16 186/112 H 97 11/13/21 08:30 11/13/21 08:54 11/13/21 08:30 11/13/21 08:54 11/13/21 08:40 Oxygen Flow Rate (L/min) 1.5 Oxygen Delivery Method Nasal Cannula Weight: 279 lb 15.793 oz Body Mass Index (BMI) 37.7 Intake & Output: Intake and Output for Last 24 Hours 11/11/21 11/12/21 11/13/21 23:59 23:59 23:59 Intake Total 725 / 845 1220 / 1220 475 / 475 Output Total 1725 / 2025 2350 / 2350 450 / 450 Balance -1000 / -1180 -1130 / -1130 Lab / Micro Data Result Diagrams: 11/12/21 03:52 11/12/21 03:52 Labs: Laboratory Results - last 24 hr 11/12/21 12:59: POC Glucose 176 H 11/12/21 16:48: POC Glucose 212 H 11/12/21 21:33: POC Glucose 332 H 11/13/21 06:46: POC Glucose 268 H 11/13/21 11:38: POC Glucose 313 H Micro: Microbiology 11/08/21 14:50 Blood Culture (Wb) - Right Hand Bacteria Detection (PCR) - Final 11/08/21 14:50 Blood Culture (Wb) - Right Hand Blood Culture - Preliminary Presumptive Micrococcus spp. 11/08/21 14:14 Blood Culture (Wb) - Chest Blood Culture - Preliminary No growth in 48 hours. 11/08/21 14:55 Urine, Clean Catch Urine Culture - Final Culture exhibits no growth. 11/08/21 Unknown Urine Catheter - Catheter Legionella Antigen - Final 11/08/21 Unknown Urine Catheter - Catheter Streptococcus pneumoniae Antigen (M - Final 11/08/21 15:04 Nasal Secretion SARS-CoV-2 Antigen (Rapid) - Final Physical Exam Const alert, oriented x3 and no apparent distress HEENT head/scalp atraumatic and moist oral mucous membranes Head and Scalp: normocephalic Eyes conjunctivae normal and no scleral icterus Neck full ROM and supple General: trachea midline Resp normal respiratory effort, normal air movement and clear to auscultation bilaterally Cardio regular rate, regular rhythm, S1 normal heart sound and S2 normal heart sound GI soft to palpation, non-tender and non-distended GI Narrative: J-tube in place, dressing dry and intact Auscultation: normoactive bowel sounds Extremity normal to inspection, full ROM and no clubbing, cyanosis or edema Peripheral Pulses: Yes pulses 2+ throughout Skin no rashes or lesions noted, no wounds and skin turgor normal Neuro oriented x3, moves all extremities, no focal motor deficits and no sensory deficits noted Sensorium / Orientation: awake and alert Psych affect normal Assessment & Plan Assessment/Plan (1) Gastroparesis: (2) Aspiration pneumonia: QUALIFIERS: Aspiration pneumonia type: due to gastric secretions (3) Acute respiratory failure with hypoxia: PLAN: Patient is a 61-year-old male who presented with recurrent aspiration pneumonia. PEG J-tube placed 11/12/[address] Rodriguez. 1. Acute hypoxic respiratory failure secondary to suspected aspiration pneumonia -Currently on room air -Leukocytosis improved -Legionella and strep pneumo antigens negative -Continue Zosyn and vancomycin -Patient to discharge 11/14/2021 pending delivery of J-tube supplies and tube feeding, case management following 2. Hypertensive urgency -Continue carvedilol, spironolactone, amlodipine -Continue as needed hydralazine 3. Diabetes mellitus type 2 -AC at bedtime with sliding scale insulin -Continue Lantus 4. H/O aspiration pneumonia MBS from 09/04/2021: Swallow function is characterized by: reduced oral clearance w/ piecemeal deglutition pattern utilized and mild residue retention on the oral tongue premature pharyngeal bolus entry w/ sub optimal bolus location upon swallow onset delayed swallow onset w/ liquid pooling to the pyriform sinuses before initiating swallow reduced laryngeal elevation and anterior hyoid excursion resulted in delayed and incomplete laryngeal vestibule despite incomplete laryngeal vestibule closure, the patient maintained airway protection with NO penetration/aspiration across all trials. mild residue retention w/in the pyriforms post deglutition, sufficiently cleared w/ a double swallow incomplete PES distention w/ appearance consistent w/ anterior esophageal webbing SEE PACS IMAGES WITH RED ARROWS for further review (patient underwent endoscopy earlier this date w/ no mention of abnormal upper esophagus) moist cough noted several minutes after MBS conclusion w/ patient reporting frequent coughing after meals; cannot rule out reflux aspiration as a contributing factor in recurrent PNA He has been approved for regular by in the past -DVT prophylaxis-subcu Lovenox This patient was seen by PAUL Vazquez under the supervision of Dr. Linder. Documented by User: Dr. Sean Linder MD 11/13/21 13:25 Objective Data Lab / Micro Data Result Diagrams: 11/12/21 03:52 11/12/21 03:52 Assessment & Plan Addt'l Comments This patient was seen in conjunction with PAUL Vazquez . I have independently interviewed and examined the patient and reviewed pertinent historical, laboratory, and other data. Please refer to PAUL Vazquez note for details of this patient's presentation, findings, and recommendations. I have reviewed PAUL Vazquez note and concur with documented findings. In brief, patient is a 61-year-old gentleman with history of bronchiectasis with multiple admissions recurrent pneumonia admitted with progressive shortness of breath 11/11/2021; patient breathing still remains labored. He is scheduled to undergo modified barium swallow. Did go over previous recommendation from GI including undergoing PEG tube placement. Patient was to have a discussion with his family and GI prior to making any decision 11/12/2021 patient underwent upper GI endoscopy placement of a removable PEG?J tube placement 11/13/2021. Plan is to initiate tube feeding via the PEG?J-tube with indication of patient's falls prior to possible discharge on 11/14/2021. Physical Examination: GENERAL: cooperative HEENT: Atraumatic; EYES; Anicteric, Normal Conjunctiva NECK; supple, normal thyroid, RESPIRATORY: Diminished to auscultation CARDIOVASCULAR: Regular S1 S2, MUSCULOSKELETAL: no muscle waisting NEURO: Awake; no lateralizing signs. SKIN: No Rash PSYCH; Flat affect Assessment: 1. Recurrent pneumonia 2. Bronchiectasis 3. 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 Class III obesity with BMI of 40.3 5. Coronary artery disease 6. Diabetic polyneuropathy 7. Chronic congestive heart failure with preserved ejection fraction 8. Obstructive sleep apnea 9. Depression with anxiety 10. GERD 11. BPH 12. Hypertension 13. DVT prophylaxis Recommendations: 1. I have discussed the results of my overview and impressions with the patient 2. Options for management were reviewed Charges/Coding Visit Charges Inpatient E&M: 44778 Subs Hosp L2
[2021-11-13] MEDS: busPIRone 15 MG TABLET 7.5 MG GT ×2 (14:29→21:53)
[2021-11-13] MEDS: Vital AF 1.2 Cal Liquid 1,000 ML 25 ML GT (15:31)
[2021-11-13 17:17] LABS: Vancomycin, Trough Level 21.5 ug/mL (5.0-15.0)
[2021-11-13 17:31] LABS: Bedside Glucose 267 mg/dL (70-110)
--- NOTE | 2021-11-13 17:57 | PCM.RX.CS ---
Consult Pharmacy has been consulted to manage selected antiobiotic: Vancomycin Type of Consult: Follow-up Prior Doses of Antibiotics Received/Current Regimen: 11/12 1633, 11/13 0439,1701 Labs: Sodium 139 mmol/L (136-145) 11/12/21 03:52 Potassium 3.9 mmol/L (3.5-5.1) 11/12/21 03:52 Chloride 105 mmol/L (98-107) 11/12/21 03:52 Carbon Dioxide 31.0 mmol/L (21.0-32.0) 11/12/21 03:52 Anion Gap 3 (5-15) L 11/12/21 03:52 BUN 20 mg/dL (7-18) H 11/12/21 03:52 Creatinine 1.13 mg/dL (0.70-1.30) 11/12/21 03:52 Est GFR (MDRD) Af Amer 84 mL/min (>60) 11/12/21 03:52 Est GFR (MDRD) Non-Af 70 mL/min (>60) 11/12/21 03:52 BUN/Creatinine Ratio 17.7 RATIO (10-20) 11/12/21 03:52 Glucose 231 mg/dL (74-106) H 11/12/21 03:52 Vancomycin Trough 21.5 ug/mL (5.0-15.0) H 11/13/21 16:05 Random Vancomycin 15.4 ug/mL (0.0-15.0) H 11/12/21 03:52 Microbiology: Microbiology 11/08/21 14:50 Blood Culture (Wb) - Right Hand Bacteria Detection (PCR) - Final 11/08/21 14:50 Blood Culture (Wb) - Right Hand Blood Culture - Final Presumptive Micrococcus spp. 11/08/21 14:14 Blood Culture (Wb) - Chest Blood Culture - Final No growth in 5 days. 11/08/21 14:55 Urine, Clean Catch Urine Culture - Final Culture exhibits no growth. 11/08/21 Unknown Urine Catheter - Catheter Legionella Antigen - Final 11/08/21 Unknown Urine Catheter - Catheter Streptococcus pneumoniae Antigen (M - Final 11/08/21 15:04 Nasal Secretion SARS-CoV-2 Antigen (Rapid) - Final Goal Trough: 15-20 mcg/mL Pharmacy Plan for Drug Dosing: VANCOMYCIN TROUGH 21.5 BUT RN ALREADY HUNG CURRENT SCHEDULED DOSE. CALLED [facility] TO TURN DRIP OFF AND D/C VANCOMYCIN AND ORDERED RANDOM LEVEL FOR 11/14 @0600 Pharmacy Service will continue to monitor and adjust dosing as required. Labs to be done on [date and time ordered]: VANCOMYCIN RANDOM LEVEL 11/14/21 @0600
[2021-11-13] MEDS: Carvedilol 25 MG Tablet GT (21:53)
[2021-11-13] MEDS: Atorvastatin Calcium 80 MG Tablet GT (21:54)
[2021-11-13] MEDS: ALPRAZolam 0.5 MG Tablet GT (22:01)
[2021-11-13] MEDS: traZODone 100 MG Tablet GT (22:02)
[2021-11-13 23:16] LABS: Bedside Glucose 259 mg/dL (70-110)
[2021-11-14] VITALS (7 sets, daily range): BP systolic 133–165; BP diastolic 69–87; PULSE 54–61; RESP 18; TEMP 36.7–36.9; O2SAT 92–98
[2021-11-14] MEDS: Piperacil/Tazobactam 3.375 GM/50 ML ML IV (06:10)
[2021-11-14] MEDS: Insulin Lispro 100 UNIT/ML INSULN.PEN SC ×2 (06:14→12:04)
[2021-11-14] MEDS: busPIRone 15 MG TABLET 7.5 MG GT (06:16)
[2021-11-14 06:17] LABS: Absolute Lymphocyte Count 1.67 X10^3/uL (0.83-4.51); Basophil# 0.02 X10^3/uL; Basophil% 0.2 % (0-1); Eosinophil# 0.14 X10^3/uL; Eosinophils% 1.4 % (0-5); Hematocrit 33.1 % (40-54); Hemoglobin 10.3 g/dL (13.0-16.5); Lymphocyte # 1.67 X10^3/ul (0.83-4.51); Mean Corp Hgb Conc 31.1 g/dL (32-36); Mean Corpuscular Hgb 26.8 pg (27.0-32.0); Mean Corpuscular Volume 86.2 fL (80-94); Mean Platelet Vol. 11.2 fl (6.2-12.0); Monocyte% 10.2 % (0-10); NRBC Flagged by Analyzer 0 % (0-5); Neutrophil # 6.99 X10^3/uL (2.7-7.7); Neutrophil % 70.9 % (47-70); Platelet Count 146 K/mm3 (150-450); RBC Distribution Width CV 13.2 % (11.6-14.6); RBC Distribution Width SD 41.1 fl (35.1-43.9); Red Blood Count 3.84 M/mm3 (4.6-6.2); White Blood Count 9.9 K/mm3 (4.4-11.0)
[2021-11-14 06:45] LABS: ALB/GLOB Ratio 0.7 RATIO (0.9-2.4); AST(SGOT) 10 U/L (15-37); Alanine Aminotransfer ALT/SGPT 18 U/L (16-61); Albumin, Serum 2.6 g/dL (3.2-5.0); Alkaline Phosphatase 63 U/L (45-117); Anion Gap 3 (5-15); BUN 21 mg/dL (7-18); BUN/Creat Ratio 17.2 RATIO (10-20); Calcium,Total 8.8 mg/dL (8.5-10.1); Chloride 104 mmol/L (98-107); Creatinine, Serum 1.22 mg/dL (0.70-1.30); EST Glomerular Filtration Rate 64 mL/min (>60); Est Glom Filt Rate - Afr Amer 77 mL/min (>60); Estimated Creatinine Clearance 64.82 ml/min; Globulin 3.8 g/dL (2.2-4.2); Glucose 269 mg/dL (74-106); Protein, Total 6.4 g/dL (6.4-8.2); Sodium Level 139 mmol/L (136-145)
[2021-11-14 07:00] LABS: Bedside Glucose 274 mg/dL (70-110)
[2021-11-14] MEDS: Oxymetazoline 0.05% 1 SPRAY SPRAY.BTL NASAL (08:38)
[2021-11-14] MEDS: Loratadine 10 MG Tablet GT (08:40)
[2021-11-14] MEDS: Spironolactone 25 MG Tablet 12.5 MG GT (08:40)
[2021-11-14] MEDS: Carvedilol 25 MG Tablet GT (08:40)
[2021-11-14] MEDS: Furosemide 20 MG Tablet GT (08:41)
[2021-11-14] MEDS: Losartan Potassium 25 MG Tablet GT (08:41)
[2021-11-14] MEDS: Isosorbide Mononitrate 30 MG Tablet PO (08:41)
[2021-11-14] MEDS: Glucerna Shake 120 ML LIQUID PO (08:41)
[2021-11-14] MEDS: Clopidogrel Bisulfate 75 MG Tablet GT (08:42)
[2021-11-14] MEDS: amLODIPine 2.5 MG Tablet GT (08:42)
[2021-11-14] MEDS: FLUoxetine 20 MG Capsule GT (08:42)
[2021-11-14] MEDS: Pantoprazole Sodium 20 MG Tablet PO (08:42)
--- NOTE | 2021-11-14 09:22 | CASEMGMT ---
Addendum entered by Becca Christensen 11/14/21 09:40: Rowena contact number [phone] ext [phone] Yessica JENKINS CM Original Note: This RN LIZETT received message from Rowena at [facility] asking about delivery time for rest of equipment as she is aware of d/c today. Spoke with Rowena from [facility] this am and she states she got ahold of pt's fiance to set up delivery time for pump and tube feed. Rowena states no further questions/concerns/needs. Yessica JENKINS CM
--- NOTE | 2021-11-14 09:33 | DCINST_ITS ---
Discharge Instructions Diet Discharge Diet: Low fat / Low cholesterol and 1800 Calorie Control Diet Activity Discharge Activity: Return to Normal Activity Dressing / Incision Call your doctor if you observe: Fever of 101 or Higher, Shortness of breath and Chest pain Cleanse incision/area with: Soap & Water Additional Dressing/Incision Instructions:: Change dressing to J tube daily Follow Up Care Test Results: Test results from this visit will be discussed in further detail at your follow-up appointment, if applicable. Discharge Plan Admission Admit Date/Time: 11/08/21 17:47 Primary Reason for Your Visit: Aspiration Pneumonia Attending Provider: Sean Linder Primary Care Provider: Doretha Brown Discharge Orders/Prescriptions Prescriptions: New amlodipine 2.5 mg Tablet 2.5 mg G-tube DAILY 30 Days Qty: 30 RF: 0 trazodone 100 mg Tablet 100 mg G-tube QHS Qty: 0 RF: 0 loratadine [Allergy Relief (loratadine)] 10 mg Tablet 10 mg G-tube DAILY Qty: 0 RF: 0 oxymetazoline [Nasal Rodanthe (oxymetazoline)] 0.05 % Rodanthe,Non-Aerosol 1 spray NASAL BID Qty: 0 RF: 0 Artificial Tears([id number]) 1-0.2-0.2 % Drops 2 drp EACH EYE Q1H PRN (Reason: DRY EYES) Qty: 0 RF: 0 Continued albuterol sulfate 90 mcg/actuation HFA aerosol inhaler 2 puff inhalation Q4H PRN (Reason: shortness of breath or wheezing) Qty: 8.5 RF: 3 losartan 50 mg tablet 25 mg PO DAILY Qty: 90 RF: 1 aspirin [Adult Aspirin Regimen] 81 mg tablet,delayed release (DR/EC) 81 mg PO DAILY RF: 0 insulin detemir U-100 100 unit/mL (3 mL) insulin pen 28 unit subcut QHS RF: 0 fluoxetine 40 MG capsule 40 mg PO DAILY RF: 0 atorvastatin 80 MG tablet 80 mg PO QHS RF: 0 isosorbide mononitrate 30 MG tablet extended release 24 hr 30 mg PO DAILY RF: 0 acetaminophen 500 MG tablet 1,000 mg PO QHS PRN PRN (Reason: Pain 1-10 Or Fever) RF: 0 nitroglycerin 0.4 MG tablet, sublingual 0.4 mg SL Q5M PRN (Reason: Chest Pain) RF: 0 finasteride 5 MG tablet 5 mg PO DAILY RF: 0 insulin lispro 100 UNIT/ML insulin pen See Protocol unit SQ TIDCM RF: 0 nystatin [Nyamyc] 100,000 unit/gram powder 1 applic topical BID PRN (Reason: Rash) RF: 0 clotrimazole 1 % cream 1 applic topical BID PRN (Reason: Rash) RF: 0 spironolactone 25 mg tablet 12.5 mg PO DAILY RF: 0 furosemide 40 mg tablet 20 mg PO DAILY RF: 0 pantoprazole [Protonix] 20 mg tablet,delayed release (DR/EC) 20 mg PO DAILY RF: 0 metoclopramide HCl [Reglan] 5 mg tablet 5 mg PO BID RF: 0 fluoxetine 20 mg capsule 20 mg PO DAILY Qty: 0 RF: 0 buspirone 7.5 mg tablet 7.5 mg PO TID Qty: 90 RF: 2 pregabalin [Lyrica] 75 mg capsule 75 mg PO BID Qty: 60 RF: 1 alprazolam 0.5 mg tablet 0.5 mg PO BID PRN (Reason: anxiety) Qty: 60 RF: 0 carvedilol 25 mg tablet 25 mg PO BID Qty: 60 RF: 0 clopidogrel 75 mg tablet 75 mg PO DAILY Qty: 30 RF: 0 trazodone 100 mg tablet 100 mg PO QHS Qty: 30 RF: 0 Referrals / Follow Up: Doretha Brown MD [Primary Care Provider] -
--- NOTE | 2021-11-14 09:45 | PCM.DC.SUM ---
Documented by User: PAUL Vazquez 11/14/21 09:57 Providers Date of Admission: 11/08/21 Primary Care Physician: Dr. Doretha Brown MD Consultations 11/11/21 16:43 Consult: Gastroenterology Routine Consulting Provider: [facility] Reason for Consult: PEG tube placment. EMERGENT Consult: No MD Notified: Yes Date Notified: 11/11/21 Time Notified: 16:43 Method of Notification: Verbal Reason For Visit: ASPIRATION PNA Diagnosis Discharge Diagnosis (1) Gastroparesis: Status: Acute Code(s): K31.84 - Gastroparesis (2) Aspiration pneumonia: Status: Acute Code(s): J69.0 - Pneumonitis due to inhalation of food and vomit Qualifiers: Aspiration pneumonia type: due to gastric secretions (3) Acute respiratory failure with hypoxia: Status: Acute Code(s): J96.01 - Acute respiratory failure with hypoxia Medications at Discharge Home Medications acetaminophen 1,000 mg PO QHS PRN PRN 02/11/21 atorvastatin 80 mg PO QHS 02/11/21 finasteride 5 mg PO DAILY 02/11/21 fluoxetine 40 mg PO DAILY 02/11/21 insulin lispro See Protocol SQ TIDCM 02/11/21 isosorbide mononitrate 30 mg PO DAILY 02/11/21 nitroglycerin 0.4 mg SL Q5M PRN 02/11/21 albuterol sulfate 90 mcg/actuation aerosol inhaler 2 puff INHALATION Q4H PRN #8.5 g 07/24/21 clotrimazole 1 applic TOPICAL BID PRN 08/06/21 nystatin [Nyamy] 1 applic TOPICAL BID PRN 08/06/21 losartan 50 mg tablet 25 mg PO DAILY #90 tab 09/25/21 insulin detemir U-100 100 unit/mL (3 mL) subcutaneous pen 28 unit SUBCUT QHS ml 10/09/21 buspirone 7.5 mg tablet 7.5 mg PO TID #90 tab 10/10/21 pregabalin 75 mg capsule 75 mg PO BID #60 cap 10/10/21 alprazolam 0.5 mg tablet 0.5 mg PO BID PRN #60 tab 11/03/21 aspirin 81 mg tablet,delayed release 81 mg PO DAILY 11/05/21 furosemide 20 mg PO DAILY 11/08/21 metoclopramide HCl [Reglan] 5 mg PO BID 11/08/21 pantoprazole [Protonix] 20 mg PO DAILY 11/08/21 spironolactone 12.5 mg PO DAILY 11/08/21 carvedilol 25 mg tablet 25 mg PO BID #60 tab 11/10/21 clopidogrel 75 mg tablet 75 mg PO DAILY #30 tab 11/10/21 trazodone 100 mg tablet 100 mg PO QHS #30 tab 11/10/21 amlodipine 2.5 mg G-TUBE DAILY 30 Days #30 tab 11/14/21 fluoxetine 20 mg PO DAILY #0 cap 11/14/21 loratadine [Allergy Relief (loratadine)] 10 mg G-TUBE DAILY #0 tab 11/14/21 oxymetazoline [Nasal [place] (oxymetazoline)] 1 spray NASAL BID #0 ml 11/14/21 peg [id number] [Artificial Tears([id number])] 2 drp EACH EYE Q1H PRN #0 ml 11/14/21 trazodone 100 mg G-TUBE QHS #0 tab 11/14/21 Hospital Course Operations None Procedures EGD Summary of Care Provided Minutes Spent on Discharge: 35 Hospital Course: Is a 61-year-old male who originally presented with concern for aspiration pneumonia. Patient has a history of aspiration pneumonia and underwent a modified barium swallow on 11/11/2021 and was recommended mechanical soft textures with thin liquids. However due to patient's history of GERD and gastroparesis as well as aspiration pneumonia patient was seen by Dr. Rodriguez who recommended an endoscopically placed GJ-tube on 11/12/2021. Patient will go home with tube feed recommendations as well as instruction for care and maintenance of his GJ tube. Patient's was given instruction on care of tube and patient will also have home health care upon discharge. Physical Exam Const alert, oriented x3 and no apparent distress General Appearance: cooperative Orientation / Consciousness: awake HEENT normocephalic, head/scalp atraumatic and moist oral mucous membranes Eyes conjunctivae normal and no scleral icterus Neck full ROM and supple General: trachea midline Chest inspection of chest normal and palpation of chest normal Resp normal respiratory effort, normal air movement and clear to auscultation bilaterally Effort and Inspection: able to speak in complete sentences and symmetric chest movement Cardio regular rate, regular rhythm, S1 normal heart sound, S2 normal heart sound and peripheral pulses 2+ throughout GI normal to inspection, nondistended, normoactive bowel sounds, soft to palpation and non-tender Auscultation: normoactive bowel sounds Extremity normal to inspection, full ROM, normal capillary refill and no clubbing, cyanosis or edema General Extremity: no tenderness to palpation of joints or extremities Skin no rashes or lesions noted, no wounds and skin turgor normal Neuro oriented x3, moves all extremities, no focal motor deficits and no sensory deficits noted Psych affect normal Weight / BMI Weight Weight: 279 lb 15.793 oz Body Mass Index (BMI) 37.7 ABG / Lab / Microbiology Data Result Diagrams: 11/14/21 06:05 11/14/21 06:05 Laboratory: Laboratory Results - last 24 hr 11/13/21 11:38: POC Glucose 313 H 11/13/21 16:05: Vancomycin Trough 21.5 H 11/13/21 17:00: POC Glucose 267 H 11/13/21 21:48: POC Glucose 259 H 11/14/21 06:05: WBC 9.9, RBC 3.84 L, Hgb 10.3 L, Hct 33.1 L, MCV 86.2, MCH 26.8 L, MCHC 31.1 L, RDW Std Deviation 41.1, RDW Coeff of James 13.2, Plt Count 146 L, MPV 11.2, Immature Gran % (Auto) 0.300, Neut % (Auto) 70.9 H, Lymph % (Auto) 17.0 L, Letcher % (Auto) 10.2 H, Eos % (Auto) 1.4, Baso % (Auto) 0.2, Absolute Neuts (auto) 7.0, Absolute Lymphs (auto) 1.67, Nucleated RBC % 0 11/14/21 06:05: Sodium 139, Potassium 4.0, Chloride 104, Carbon Dioxide 32.0, Anion Gap 3 L, BUN 21 H, Creatinine 1.22, Estim Creat Clear Calc 64.82, Est GFR (MDRD) Af Amer 77, Est GFR (MDRD) Non-Af 64, BUN/Creatinine Ratio 17.2, Glucose 269 H, Calcium 8.8, Total Bilirubin 0.50, AST 10 L, ALT 18, Alkaline Phosphatase 63, Total Protein 6.4, Albumin 2.6 L, Globulin 3.8, Albumin/Globulin Ratio 0.7 L 11/14/21 06:05: Random Vancomycin 14.0 11/14/21 06:13: POC Glucose 274 H Microbiology: Microbiology 11/08/21 14:50 Blood Culture (Wb) - Right Hand Bacteria Detection (PCR) - Final 11/08/21 14:50 Blood Culture (Wb) - Right Hand Blood Culture - Final Presumptive Micrococcus spp. 11/08/21 14:14 Blood Culture (Wb) - Chest Blood Culture - Final No growth in 5 days. 11/08/21 14:55 Urine, Clean Catch Urine Culture - Final Culture exhibits no growth. 11/08/21 Unknown Urine Catheter - Catheter Legionella Antigen - Final 11/08/21 Unknown Urine Catheter - Catheter Streptococcus pneumoniae Antigen (M - Final 11/08/21 15:04 Nasal Secretion SARS-CoV-2 Antigen (Rapid) - Final D/C Instructions Discharge Diet: Low fat / Low cholesterol and 1800 Calorie Control Diet Call your doctor if you observe: Fever of 101 or Higher, Shortness of breath and Chest pain Cleanse incision/area with: Soap & Water Additional Dressing/Incision Instructions: Change dressing to J tube daily Meaningful Use Info Meaningful Use Diagnoses (Choose all that apply): None applicable Discharge Plan Admission Admit Date/Time: 11/08/21 17:47 Primary Reason for Your Visit: Aspiration Pneumonia Attending Provider: Sean Linder Primary Care Provider: Doretha Brown Discharge Orders/Prescriptions Prescriptions: New amlodipine 2.5 mg Tablet 2.5 mg G-tube DAILY 30 Days Qty: 30 RF: 0 trazodone 100 mg Tablet 100 mg G-tube QHS Qty: 0 RF: 0 loratadine [Allergy Relief (loratadine)] 10 mg Tablet 10 mg G-tube DAILY Qty: 0 RF: 0 oxymetazoline [Nasal [place] (oxymetazoline)] 0.05 % [place],Non-Aerosol 1 spray NASAL BID Qty: 0 RF: 0 Artificial Tears([id number]) 1-0.2-0.2 % Drops 2 drp EACH EYE Q1H PRN (Reason: DRY EYES) Qty: 0 RF: 0 Continued albuterol sulfate 90 mcg/actuation HFA aerosol inhaler 2 puff inhalation Q4H PRN (Reason: shortness of breath or wheezing) Qty: 8.5 RF: 3 losartan 50 mg tablet 25 mg PO DAILY Qty: 90 RF: 1 aspirin [Adult Aspirin Regimen] 81 mg tablet,delayed release (DR/EC) 81 mg PO DAILY RF: 0 insulin detemir U-100 100 unit/mL (3 mL) insulin pen 28 unit subcut QHS RF: 0 fluoxetine 40 MG capsule 40 mg PO DAILY RF: 0 atorvastatin 80 MG tablet 80 mg PO QHS RF: 0 isosorbide mononitrate 30 MG tablet extended release 24 hr 30 mg PO DAILY RF: 0 acetaminophen 500 MG tablet 1,000 mg PO QHS PRN PRN (Reason: Pain 1-10 Or Fever) RF: 0 nitroglycerin 0.4 MG tablet, sublingual 0.4 mg SL Q5M PRN (Reason: Chest Pain) RF: 0 finasteride 5 MG tablet 5 mg PO DAILY RF: 0 insulin lispro 100 UNIT/ML insulin pen See Protocol unit SQ TIDCM RF: 0 nystatin [Nyamyc] 100,000 unit/gram powder 1 applic topical BID PRN (Reason: Rash) RF: 0 clotrimazole 1 % cream 1 applic topical BID PRN (Reason: Rash) RF: 0 spironolactone 25 mg tablet 12.5 mg PO DAILY RF: 0 furosemide 40 mg tablet 20 mg PO DAILY RF: 0 pantoprazole [Protonix] 20 mg tablet,delayed release (DR/EC) 20 mg PO DAILY RF: 0 metoclopramide HCl [Reglan] 5 mg tablet 5 mg PO BID RF: 0 fluoxetine 20 mg capsule 20 mg PO DAILY Qty: 0 RF: 0 buspirone 7.5 mg tablet 7.5 mg PO TID Qty: 90 RF: 2 pregabalin [Lyrica] 75 mg capsule 75 mg PO BID Qty: 60 RF: 1 alprazolam 0.5 mg tablet 0.5 mg PO BID PRN (Reason: anxiety) Qty: 60 RF: 0 carvedilol 25 mg tablet 25 mg PO BID Qty: 60 RF: 0 clopidogrel 75 mg tablet 75 mg PO DAILY Qty: 30 RF: 0 trazodone 100 mg tablet 100 mg PO QHS Qty: 30 RF: 0 Referrals / Follow Up: Rubio Dobson PHYSICIAN CREDENTIALING SPECIALIST, PHYSICIAN CREDENTIALING SPECIALIST-C [Nurse Practitioner] - 11/18/21 2:30 pm Disposition Disposition (needs filled in before D/C Order can be placed): Home Health Service Documented by User: Dr. Sean Linder MD 11/14/21 12:02 Providers Date of Admission: 11/08/21 Reason For Visit: ASPIRATION PNA Medications at Discharge Home Medications acetaminophen 1,000 mg PO QHS PRN PRN 02/11/21 atorvastatin 80 mg PO QHS 02/11/21 finasteride 5 mg PO DAILY 02/11/21 fluoxetine 40 mg PO DAILY 02/11/21 insulin lispro See Protocol SQ TIDCM 02/11/21 isosorbide mononitrate 30 mg PO DAILY 02/11/21 nitroglycerin 0.4 mg SL Q5M PRN 02/11/21 albuterol sulfate 90 mcg/actuation aerosol inhaler 2 puff INHALATION Q4H PRN #8.5 g 07/24/21 clotrimazole 1 applic TOPICAL BID PRN 08/06/21 nystatin [Nyamyc] 1 applic TOPICAL BID PRN 08/06/21 losartan 50 mg tablet 25 mg PO DAILY #90 tab 09/25/21 insulin detemir U-100 100 unit/mL (3 mL) subcutaneous pen 28 unit SUBCUT QHS ml 10/09/21 buspirone 7.5 mg tablet 7.5 mg PO TID #90 tab 10/10/21 pregabalin 75 mg capsule 75 mg PO BID #60 cap 10/10/21 alprazolam 0.5 mg tablet 0.5 mg PO BID PRN #60 tab 11/03/21 aspirin 81 mg tablet,delayed release 81 mg PO DAILY 11/05/21 furosemide 20 mg PO DAILY 11/08/21 metoclopramide HCl [Reglan] 5 mg PO BID 11/08/21 pantoprazole [Protonix] 20 mg PO DAILY 11/08/21 spironolactone 12.5 mg PO DAILY 11/08/21 carvedilol 25 mg tablet 25 mg PO BID #60 tab 11/10/21 clopidogrel 75 mg tablet 75 mg PO DAILY #30 tab 11/10/21 trazodone 100 mg tablet 100 mg PO QHS #30 tab 11/10/21 amlodipine 2.5 mg G-TUBE DAILY 30 Days #30 tab 11/14/21 fluoxetine 20 mg PO DAILY #0 cap 11/14/21 loratadine [Allergy Relief (loratadine)] 10 mg G-TUBE DAILY #0 tab 11/14/21 oxymetazoline [Nasal [place] (oxymetazoline)] 1 spray NASAL BID #0 ml 11/14/21 peg [id number] [Artificial Tears([id number])] 2 drp EACH EYE Q1H PRN #0 ml 11/14/21 trazodone 100 mg G-TUBE QHS #0 tab 11/14/21 Hospital Course Operations None Summary of Care Provided Hospital Course: This patient was seen in conjunction with PAUL Vazquez . I have independently interviewed and examined the patient and reviewed pertinent historical, laboratory, and other data. Please refer to PAUL Vazquez note for details of this patient's presentation, findings, and recommendations. I have reviewed PAUL Vazquez note and concur with documented findings. In brief, patient is a 61-year-old gentleman with history of bronchiectasis with multiple admissions recurrent pneumonia admitted with progressive shortness of breath. A diagnosis of aspiration pneumonia was made. Patient treated with antibiotic therapy. Patient underwent upper GI endoscopy placement of a removable PEG?J tube placement Assessment: 1. Recurrent pneumonia 2. Bronchiectasis 3. 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 Class III obesity with BMI of 40.3 5. Coronary artery disease 6. Diabetic polyneuropathy 7. Chronic congestive heart failure with preserved ejection fraction 8. Obstructive sleep apnea 9. Depression with anxiety 10. GERD 11. BPH 12. Hypertension 13. DVT prophylaxis Hospital course: As documented above ABG / Lab / Microbiology Data Result Diagrams: 11/14/21 06:05 11/14/21 06:05 Discharge Plan Admission Admit Date/Time: 11/08/21 17:47 Primary Reason for Your Visit: Aspiration Pneumonia Attending Provider: Sean Linder Primary Care Provider: Doretha Brown Discharge Orders/Prescriptions Prescriptions: New amlodipine 2.5 mg Tablet 2.5 mg G-tube DAILY 30 Days Qty: 30 RF: 0 trazodone 100 mg Tablet 100 mg G-tube QHS Qty: 0 RF: 0 loratadine [Allergy Relief (loratadine)] 10 mg Tablet 10 mg G-tube DAILY Qty: 0 RF: 0 oxymetazoline [Nasal [place] (oxymetazoline)] 0.05 % [place],Non-Aerosol 1 spray NASAL BID Qty: 0 RF: 0 Artificial Tears([id number]) 1-0.2-0.2 % Drops 2 drp EACH EYE Q1H PRN (Reason: DRY EYES) Qty: 0 RF: 0 Continued albuterol sulfate 90 mcg/actuation HFA aerosol inhaler 2 puff inhalation Q4H PRN (Reason: shortness of breath or wheezing) Qty: 8.5 RF: 3 losartan 50 mg tablet 25 mg PO DAILY Qty: 90 RF: 1 aspirin [Adult Aspirin Regimen] 81 mg tablet,delayed release (DR/EC) 81 mg PO DAILY RF: 0 insulin detemir U-100 100 unit/mL (3 mL) insulin pen 28 unit subcut QHS RF: 0 fluoxetine 40 MG capsule 40 mg PO DAILY RF: 0 atorvastatin 80 MG tablet 80 mg PO QHS RF: 0 isosorbide mononitrate 30 MG tablet extended release 24 hr 30 mg PO DAILY RF: 0 acetaminophen 500 MG tablet 1,000 mg PO QHS PRN PRN (Reason: Pain 1-10 Or Fever) RF: 0 nitroglycerin 0.4 MG tablet, sublingual 0.4 mg SL Q5M PRN (Reason: Chest Pain) RF: 0 finasteride 5 MG tablet 5 mg PO DAILY RF: 0 insulin lispro 100 UNIT/ML insulin pen See Protocol unit SQ TIDCM RF: 0 nystatin [Nyamyc] 100,000 unit/gram powder 1 applic topical BID PRN (Reason: Rash) RF: 0 clotrimazole 1 % cream 1 applic topical BID PRN (Reason: Rash) RF: 0 spironolactone 25 mg tablet 12.5 mg PO DAILY RF: 0 furosemide 40 mg tablet 20 mg PO DAILY RF: 0 pantoprazole [Protonix] 20 mg tablet,delayed release (DR/EC) 20 mg PO DAILY RF: 0 metoclopramide HCl [Reglan] 5 mg tablet 5 mg PO BID RF: 0 fluoxetine 20 mg capsule 20 mg PO DAILY Qty: 0 RF: 0 buspirone 7.5 mg tablet 7.5 mg PO TID Qty: 90 RF: 2 pregabalin [Lyrica] 75 mg capsule 75 mg PO BID Qty: 60 RF: 1 alprazolam 0.5 mg tablet 0.5 mg PO BID PRN (Reason: anxiety) Qty: 60 RF: 0 carvedilol 25 mg tablet 25 mg PO BID Qty: 60 RF: 0 clopidogrel 75 mg tablet 75 mg PO DAILY Qty: 30 RF: 0 trazodone 100 mg tablet 100 mg PO QHS Qty: 30 RF: 0 Referrals / Follow Up: Rubio Dobson NP, PHYSICIAN CREDENTIALING SPECIALIST-C [Nurse Practitioner] - 11/18/21 2:30 pm Disposition Disposition (needs filled in before D/C Order can be placed): Home Health Service Charges/Coding Visit Charges Inpatient E&M: 83809 Disch Hosp Hospital Course Consultations Consultations: Consultations 11/11/21 16:43 Consult: Gastroenterology Routine Consulting Provider: [facility] Reason for Consult: PEG tube placment. EMERGENT Consult: No MD Notified: Yes Date Notified: 11/11/21 Time Notified: 16:43 Method of Notification: Verbal Operations None
[2021-11-14] MEDS: Vancomycin IV 1,000 MG/200 ML BAG 200 MG IV (10:21)
--- NOTE | 2021-11-14 10:30 | CASEMGMT ---
Addendum entered by Becca Christensen 11/14/21 16:05: Per Jessica at [facility], Rowena at [facility] told them they are out of stock of the Vital AF and that she notified [facility]. This RN CM was not notified and Rowena told this RN CM this am that everything was ready to go for pt and would be delivered this afternoon. Per Jessica at [facility], [facility] in-pt pharmacy has some Vital in stock and is able to have ready for pt at this time until [facility] can deliver. [facility] nurse is picking up for pt. CM still awaiting call back from [facility] rep as she was unaware of the lack of product. CM to follow. Yessica RN CM Addendum entered by Becca Christensen 11/14/21 15:52: Pt's sig other calling PCU stating no tube feed received. Call again to Rowena at [facility] and phone goes straight to . This RN CM hung up(message already previously left) and call back to customer service. Per customer engagement specialist, Rowena has left for the day and rep is stating that order was placed. This RN CM requests that she verify that all was delivered to pt and rep states she has a call to dispatch as medical van driver was supposed to deliver all supplies to pt this afternoon and she is not sure why they did not. CM to follow. Yessica RN CM Addendum entered by Becca Christensen 11/14/21 15:32: Call from Jessica at [facility] requesting further instructions for tube feed and this RN CM directed her to [employer] servicing rep, note from today prior to d/c, voices understanding. Jessica then called this RN CM back asking about tube feed delivery time and Jessica directed to call [facility] as they informed this RN CM that pump and tube feed would all be delivered together this afternoon. This RN CM did leave a message with Rowena to check on supplies. Yessica RN CM Original Note: Per Juliana at [facility], pt's order is for 2L continuous and 3L w/ exertion. Pt does not have increased need for home oxygen at discharge. Pt is set up with [facility] and feeding tube pump/supplies. Pt voices no further questions/concerns/needs. Yessica RN CM
[2021-11-14 11:36] LABS: Bedside Glucose 289 mg/dL (70-110)
--- NOTE | 2021-11-14 11:45 | PCM.RX.CS ---
Consult Pharmacy has been consulted to manage selected antiobiotic: Vancomycin Type of Consult: Follow-up Prior Doses of Antibiotics Received/Current Regimen: the patient had been on vanc 1250mg q12h but that was held last night due to a high trough Labs: Sodium 139 mmol/L (136-145) 11/14/21 06:05 Potassium 4.0 mmol/L (3.5-5.1) 11/14/21 06:05 Chloride 104 mmol/L (98-107) 11/14/21 06:05 Carbon Dioxide 32.0 mmol/L (21.0-32.0) 11/14/21 06:05 Anion Gap 3 (5-15) L 11/14/21 06:05 BUN 21 mg/dL (7-18) H 11/14/21 06:05 Creatinine 1.22 mg/dL (0.70-1.30) 11/14/21 06:05 Est GFR (MDRD) Af Amer 77 mL/min (>60) 11/14/21 06:05 Est GFR (MDRD) Non-Af 64 mL/min (>60) 11/14/21 06:05 BUN/Creatinine Ratio 17.2 RATIO (10-20) 11/14/21 06:05 Glucose 269 mg/dL (74-106) H 11/14/21 06:05 Vancomycin Trough 21.5 ug/mL (5.0-15.0) H 11/13/21 16:05 Random Vancomycin 14.0 ug/mL (0.0-15.0) 11/14/21 06:05 Microbiology: Microbiology 11/08/21 14:50 Blood Culture (Wb) - Right Hand Bacteria Detection (PCR) - Final 11/08/21 14:50 Blood Culture (Wb) - Right Hand Blood Culture - Final Presumptive Micrococcus spp. 11/08/21 14:14 Blood Culture (Wb) - Chest Blood Culture - Final No growth in 5 days. 11/08/21 14:55 Urine, Clean Catch Urine Culture - Final Culture exhibits no growth. 11/08/21 Unknown Urine Catheter - Catheter Legionella Antigen - Final 11/08/21 Unknown Urine Catheter - Catheter Streptococcus pneumoniae Antigen (M - Final 11/08/21 15:04 Nasal Secretion SARS-CoV-2 Antigen (Rapid) - Final Weight used for dosin kg Estimated Creatinine Clearance: 84ml/min Goal Trough: 15-20 mcg/mL Pharmacy Plan for Drug Dosing: The vanc random level drawn this morning at 06:05 (roughly 13 hrs after the last partial dose of 1250mg last night before it was held) came back as 14.0. This is back below 20 so can restart vanc. Restarted at 1000mg IV q12h this morning. Will not scheduled another trough at this time since the patient is being discharged today. Pharmacy Service will continue to monitor and adjust dosing as required.
== END 2021-11-14 12:56 | disposition home health service (06) | DRG 178 ==
LOC: ED 17:33 → PCU 11-09 07:02
PROVIDERS: Anesthesiology; Hospitalist; Internal Medicine; Internal Medicine Gastroenterology; Nurse Practitioner Family; Physician Assistant; Admitting Provider Hospitalist; Emergency Provider Student in an Organized Health Care Education/Training Program; PCP Internal Medicine; Visit Provider Internal Medicine
PROC: 0DJ08ZZ Inspection of Upper Intestinal Tract, Via Natural or Artificial Opening Endoscopic (ICD-10-PCS; CPT 43235; principal; 2021-11-12 10:25)
DX: J69.0 Pneumonitis due to inhalation of food and vomit (principal); I50.32 Chronic diastolic (congestive) heart failure; Z68.41 Body mass index [BMI] 40.0-44.9, adult; E11.42 Type 2 diabetes mellitus with diabetic polyneuropathy; E11.51 Type 2 diabetes mellitus with diabetic peripheral angiopathy without gangrene; E66.01 Morbid (severe) obesity due to excess calories; I11.0 Hypertensive heart disease with heart failure; J47.9 Bronchiectasis, uncomplicated; Z79.4 Long term (current) use of insulin; E11.43 Type 2 diabetes mellitus with diabetic autonomic (poly)neuropathy; F41.8 Other specified anxiety disorders; G43.909 Migraine, unspecified, not intractable, without status migrainosus; K31.84 Gastroparesis; K44.9 Diaphragmatic hernia without obstruction or gangrene; K21.9 Gastro-esophageal reflux disease without esophagitis; K29.70 Gastritis, unspecified, without bleeding; I16.0 Hypertensive urgency; I25.10 Atherosclerotic heart disease of native coronary artery without angina pectoris; G47.33 Obstructive sleep apnea (adult) (pediatric); I25.2 Old myocardial infarction; M10.9 Gout, unspecified; Z79.02 Long term (current) use of antithrombotics/antiplatelets; N40.0 Benign prostatic hyperplasia without lower urinary tract symptoms; R53.81 Other malaise; Z87.01 Personal history of pneumonia (recurrent); Z87.442 Personal history of urinary calculi; Z95.5 Presence of coronary angioplasty implant and graft; Z79.899 Other long term (current) drug therapy
CPT/HCPCS: 36415; 51702; 71045; 74230; 80048; 80053; 80202; 81001; 82962; 83036; 83605; 83880; 84484; 85025; 85610; 85730; 87040; 87086; 87149; 87426; 87449; 92526; 92610; 92611; 93005; 94002; 94003; 94640; 94660; 97163; 97166; 97530; 97535; 97802; 97803; 99285; J7030; J7040; J7050; A4216; J2405

== ENCOUNTER 2021-12-04 01:17 | Inpatient (IN) | payer MEDICARE, MEDICAID, SELFPAY ==
[2021-12-04] VITALS (20 sets, daily range): BP systolic 111–201; BP diastolic 48–94; PULSE 54–91; RESP 16–22; TEMP 36.3–37.4; O2SAT 94–100; BMI 39.2; BMI 37.8
--- NOTE | 2021-12-04 01:43 | EKG12_ITS ---
Test Reason : DYSRHYTHMIA Blood Pressure : / mmHG Vent. Rate : 088 BPM Atrial Rate : 100 BPM P-R Int : 234 ms QRS Dur : 094 ms QT Int : 390 ms P-R-T Axes : 102 -01 039 degrees QTc Int : 471 ms Sinus rhythm with 1st degree A-V block with Premature supraventricular complexes Otherwise normal ECG Confirmed by ROLAND JOHNS, FAUSTINA ([id number]), photography editor MAYDA ORTEGA ([id number]) on 12/04/2021 11:01:46 AM Referred By: CARLOS Confirmed By:FAUSTINA WATKINS MD
--- NOTE | 2021-12-04 01:43 | RAD_ITS ---
STUDY: X-RAY CHEST REASON FOR EXAM: Male, 61 years old. aspiration TECHNIQUE: Single AP portable view of the chest. COMPARISON: 11/08/2021 FINDINGS: Stable elevation right hemidiaphragm. There are superimposed monitor leads. There is improved aeration in the bilateral upper lung, persistent presumed compression of parenchyma in the right base. Mild interstitial prominence in the left base slightly more pronounced on current exam. There is no demonstrated pleural abnormality. Normal size heart. Normal mediastinum and pat. Normal visualized pulmonary arteries. There is atherosclerotic calcification of the aortic arch with tortuosity. There are diffuse degenerative changes of the visualized thoracic spine. There is degenerative osteoarthritis of the bilateral shoulders. There is no demonstrated abnormality of the visualized soft tissue structures of the upper abdomen. RAD/Chest 1 View (Portable) IMPRESSION: Aeration in the upper lung parenchyma bilaterally has improved with stable presumed atelectasis or compression of parenchyma in the right base. The left base opacification has slightly increased, attention on follow-up examination to exclude superimposed pneumonia recommended. Electronically Signed: April Meadows MD at 2:41 EST , Service support ,
--- NOTE | 2021-12-04 01:46 | ED.VIS.DYS ---
HPI History of Present Illness Chief Complaint: Shortness of Breath Informant: patient and spouse/S.O. Narrative Narrative: Presents private vehicle concerns for aspiration with increasing dyspnea. 3:30 PM 10 hours ago drinking a Coke when he aspirated. History of similar in the past. Admitted last month for respiratory failure, he was evaluated by GI, due to his gastroparesis and aspiration history PEG tube was placed. Is currently primary PEG tube feeds along with medications through this. He is on limited fluid intake. Bowel states he met as per little bit 2 days will have there is no symptoms from that. He was discharged last month on 3 L of oxygen. Denies asthma or COPD history. He is coughing up sputum. Denies fevers. However states has chills. No chest pains. No abdominal pain. Patient is Covid vaccinated. Prior similar symptoms: Yes PFSH PFS Medical History Acute and chronic respiratory failure Acute gout Amputation of one or more toes Anxiety Anxiety and depression Arrhythmia Aspiration into airway Aspiration pneumonia Atherosclerotic heart disease of [place] coronary artery without angina pectoris Bronchiectasis with (acute) exacerbation COPD (chronic obstructive pulmonary disease) CPAP (continuous positive airway pressure) dependence Depression Diabetes Essential hypertension Gastroparesis GERD (gastroesophageal reflux disease) History of aspiration pneumonia History of non-ST elevation myocardial infarction (NSTEMI) (08/2016) Hypertension Kidney stones Leg pain, right Migraines Mood disorder Non-smoker On home oxygen therapy Peripheral vascular occlusive disease Pneumonia Pulmonary nodule, left Right ankle pain Silent aspiration Sleep apnea Type 2 diabetes mellitus Vision loss of left eye Wound of left lower extremity Home Medications acetaminophen 1,000 mg PO QHS PRN PRN 02/11/21 [History Last Taken 09/01/21] insulin lispro See Protocol SQ TIDCM 02/11/21 [History Last Taken 10/01/21] albuterol sulfate 90 mcg/actuation aerosol inhaler 2 puff INHALATION Q4H PRN #8.5 g 07/24/21 [Rx Last Taken 10/01/21] clotrimazole 1 applic TOPICAL BID PRN 08/06/21 [History Last Taken 3 Days Ago ~09/29/21] nystatin [Nyamyc] 1 applic TOPICAL BID PRN 08/06/21 [History Last Taken 3 Days Ago ~09/29/21] losartan 50 mg tablet 25 mg PO DAILY #90 tab 09/25/21 [Rx Last Taken 10/02/21] insulin detemir U-100 100 unit/mL (3 mL) subcutaneous pen 28 unit SUBCUT QHS ml 10/09/21 [History Last Taken Unknown] alprazolam 0.5 mg tablet 0.5 mg PO BID PRN #60 tab 11/03/21 [Rx Last Taken Unknown] aspirin 81 mg tablet,delayed release 81 mg PO DAILY 11/05/21 [History Last Taken Unknown] spironolactone 12.5 mg PO DAILY 11/08/21 [History Last Taken Unknown] trazodone 100 mg tablet 100 mg PO QHS #30 tab 11/10/21 [Rx Last Taken Unknown] loratadine [Allergy Relief (loratadine)] 10 mg G-TUBE DAILY #0 tab 11/14/21 [Rx Last Taken Unknown] oxymetazoline [Nasal [place] (oxymetazoline)] 1 spray NASAL BID #0 ml 11/14/21 [Rx Last Taken Unknown] peg [id number] [Artificial Tears(io-xwmi-gumd)] 2 drp EACH EYE Q1H PRN #0 ml 11/14/21 [Rx Last Taken Unknown] amlodipine 2.5 mg tablet 2.5 mg G-TUBE DAILY #90 tab 11/25/21 [Rx Last Taken Unknown] atorvastatin 80 mg tablet 80 mg PO QHS #90 tab 11/25/21 [Rx Last Taken Unknown] buspirone 7.5 mg tablet 7.5 mg PO TID #90 tab 11/25/21 [Rx Last Taken Unknown] carvedilol 25 mg tablet 25 mg PO BID #180 tab 11/25/21 [Rx Last Taken Unknown] clopidogrel 75 mg tablet 75 mg PO DAILY #90 tab 11/25/21 [Rx Last Taken Unknown] finasteride 5 mg tablet 5 mg PO DAILY #90 tab 11/25/21 [Rx Last Taken Unknown] fluoxetine 20 mg capsule 20 mg PO DAILY #90 cap 11/25/21 [Rx Last Taken Unknown] fluoxetine 40 mg capsule 40 mg PO DAILY #90 cap 11/25/21 [Rx Last Taken Unknown] furosemide 20 mg tablet 20 mg PO DAILY #90 tab 11/25/21 [Rx Last Taken Unknown] isosorbide mononitrate 30 mg tablet,extended release 24 hr 30 mg PO DAILY #90 tab 11/25/21 [Rx Last Taken Unknown] metoclopramide HCl 5 mg tablet 5 mg PO BID #30 tab 11/25/21 [Rx Last Taken Unknown] nitroglycerin 0.4 mg sublingual tablet 0.4 mg SL Q5M PRN #30 tab 11/25/21 [Rx Last Taken Unknown] pregabalin 75 mg capsule 75 mg PO BID #60 cap 11/25/21 [Rx Last Taken Unknown] trazodone 100 mg tablet 100 mg G-TUBE QHS #90 tab 11/25/21 [Rx Last Taken Unknown] gauze bandage 4 X 4 sponge #1 ea 11/27/21 [Rx Last Taken Unknown] pantoprazole 40 mg tablet,delayed release 40 mg PO DAILY #60 tab 11/27/21 [Rx Last Taken Unknown] sucralfate 100 mg/mL oral suspension 10 ml PO QAC #1000 ml 11/27/21 [Rx Last Taken Unknown] Allergy/AdvReac Type Severity Reaction Status Date / Time allopurinol AdvReac Vomiting Verified 11/08/21 13:54 Influenza Virus Vaccines AdvReac Vomiting Verified 11/08/21 13:54 pneumococcal vaccine AdvReac Vomiting Verified 11/08/21 13:54 Family History Mother Diabetes Heart disease CHF Father Heart disease [place]/CAD Myocardial infarction Surgical History H/O lithotripsy History of angioplasty of peripheral vessel (2016) History of ankle surgery History of coronary artery stent placement (08/2016) History of left heart catheterization (11/15/17) History of thyroid surgery Hx of toe surgery PEG (percutaneous endoscopic gastrostomy) status Social History household members: spouse housing: apartment Smoking Status: Never smoker alcohol intake: never substance use type: does not use ROS ROS ED Constitutional Constitutional ED: Reports chills; Denies fever(s) or sweats Eyes Eyes: Denies change in vision ENT ENT ED: Denies dysphagia or sore throat Cardiovascular Cardiovascular: Denies chest pain, leg edema, palpitations or racing heartbeat Respiratory/Chest Respiratory/Chest: Reports cough and dyspnea; Denies dyspnea on exertion Gastrointestinal Gastrointestinal: Denies abdominal pain, diarrhea, nausea or vomiting Genitourinary Genitourinary ED: Denies dysuria, hematuria or urinary frequency Musculoskeletal Musculoskeletal: Denies back pain, extremity pain or neck pain Integumentary Denies rash or wounds Neurologic Neurologic: Denies headache(s), paresthesias or weakness EXAM Physical Exam Const Vital Signs: 12/04/21 01:18 12/04/21 01:20 12/04/21 01:23 Temperature 99.3 F H 99.3 F H Temperature Source Oral Oral Pulse Rate 88 88 Respiratory Rate 16 16 Respiratory Effort Short of Breath Respiratory Depth Respiratory Pattern Blood Pressure 201/94 H 201/94 H Blood Pressure Mean 129 129 Pulse Ox 98 98 Oxygen Delivery Method Nasal Cannula Nasal Cannula Nasal Cannula Oxygen Flow Rate (L/min) 3 3 12/04/21 01:47 12/04/21 01:51 12/04/21 02:44 Temperature 99.3 F H Temperature Source Oral Pulse Rate 88 85 Respiratory Rate 22 H 20 H Respiratory Effort Short of Breath Labored Respiratory Depth Shallow Respiratory Pattern Tachypnea Blood Pressure 166/84 H Blood Pressure Mean 111 Pulse Ox 94 96 Oxygen Delivery Method Nasal Cannula Nasal Cannula Nasal Cannula Oxygen Flow Rate (L/min) 3 3 3 Positive well nourished and well developed Constitutional Narrative: 3 L nasal cannula with upper airway wheezing and rhonchi General Appearance ED: well developed HEENT Reports moist mucous membranes normocephalic and atraumatic Eyes PERRL, EOMs intact bilaterally and conjunctivae normal General Eye ED: Yes normal appearance of both eyes Neck no lymphadenopathy and supple General: Negative for tenderness Chest Wall Chest: Negative for tenderness Resp normal respiratory effort and normal air movement Effort and Inspection: symmetric chest movement; Negative for respiratory distress Auscultation: rhonchi and wheezes Cardio regular rate, regular rhythm and no murmurs Peripheral Pulses: pulses 2+ throughout GI normal to inspection, nondistended, normoactive bowel sounds and non-tender GI Narrative: PEG tube clean, dry, intact. Palpation: Negative for guarding or rebound tenderness present Back/Spine no CVA tenderness and no thoracic nor lumbar tenderness Extremity normal to inspection General Extremety ED: Negative for edema or tenderness General Extremity: Negative for edema Neuro oriented x3 and no sensory deficits noted Sensorium / Orientation: awake and alert Skin no rashes or lesions noted and no wounds MDM MDM MDM Narrative Medical decision making narrative: Patient presenting on his 3 L oxygen with upper airway wheezing with rhonchi. Sepsis labs were ordered. Cultures sent. He started on Unasyn for concern for clinical aspiration. Labs white count returned at 18 creatinine 1.03. Lactic acid 1.1. Given DuoNeb treatment. Chest x-ray reviewed by myself concern for increasing right lower lobe infiltrate along with left lower lobe. Per radiology concerns were increasing opacity in left lower lobe. Reevaluation the wheezing was improved he is clinically feeling much better. Patient does meet sepsis criteria with his elevated white count and respiratory rate. Patient had progressing symptoms 10 hours into his event. Currently more stabilized. I do feel benefit from hospitalization. I will speak with hospitalist for admission. spoke with Dr. Randall for admission. Lab Data Attestation: I reviewed the patient's lab results. Labs: Laboratory Results - last 24 hr 12/04/21 12/04/21 12/04/21 02:02 02:02 02:02 WBC 18.0 H RBC 4.12 L Hgb 11.1 L Hct 35.2 L MCV 85.4 MCH 26.9 L MCHC 31.5 L RDW Std Deviation 40.9 RDW Coeff of James 13.2 Plt Count 217 MPV 11.3 Immature Gran % (Auto) 0.500 Neut % (Auto) 86.6 H Lymph % (Auto) 5.8 L [place] % (Auto) 5.6 Eos % (Auto) 1.2 Baso % (Auto) 0.3 Absolute Neuts (auto) 15.6 H Absolute Lymphs (auto) 1.05 Nucleated RBC % 0 PT 13.9 INR 1.1 APTT 29.7 Sodium 139 Potassium 4.4 Chloride 100 Carbon Dioxide 34.0 H Anion Gap 5 BUN 28 H Creatinine 1.03 Estim Creat Clear Calc 76.78 Est GFR (MDRD) Af Amer 94 Est GFR (MDRD) Non-Af 78 BUN/Creatinine Ratio 27.2 H Glucose 225 H Lactic Acid Calcium 9.3 Total Bilirubin 0.40 AST 19 ALT 21 Alkaline Phosphatase 114 Total Protein 7.6 Albumin 3.1 L Globulin 4.5 H Albumin/Globulin Ratio 0.7 L 12/04/21 02:02 WBC RBC Hgb Hct MCV MCH MCHC RDW Std Deviation RDW Coeff of James Plt Count MPV Immature Gran % (Auto) Neut % (Auto) Lymph % (Auto) [place] % (Auto) Eos % (Auto) Baso % (Auto) Absolute Neuts (auto) Absolute Lymphs (auto) Nucleated RBC % PT INR APTT Sodium Potassium Chloride Carbon Dioxide Anion Gap BUN Creatinine Estim Creat Clear Calc Est GFR (MDRD) Af Amer Est GFR (MDRD) Non-Af BUN/Creatinine Ratio Glucose Lactic Acid 1.1 Calcium Total Bilirubin AST ALT Alkaline Phosphatase Total Protein Albumin Globulin Albumin/Globulin Ratio Radiography Chest X-Ray - ED: 1 View, Read by ED Physician and Read by Radiologist Diagnostic Testing: Clinical Impression(s) from Imaging Studies Chest X-Ray 12/04/21 01:43 IMPRESSION: Aeration in the upper lung parenchyma bilaterally has improved with stable presumed atelectasis or compression of parenchyma in the right base. The left base opacification has slightly increased, attention on follow-up examination to exclude superimposed pneumonia recommended. Electronically Signed: April Meadows MD at 2:41 EST , Service support , EKG Initial EKG: Attestation: I personally reviewed and interpreted this EKG as follows: Comments: Sinus rate of 88 first-degree AV block, no ST or T wave changes. Discharge Plan Dx/Rx/DC Orders Clinical Impression: Aspiration pneumonia, Sepsis Disposition Disposition: Acute Care Hospital [facility] Discharge Date/Time: 12/04/21 04:57
[2021-12-04] MEDS: Ipratropium/Albuterol Sulfate 3 ML AMPUL.NEB INHALATION ×4 (01:47→19:10)
[2021-12-04 02:18] LABS: Absolute Lymphocyte Count 1.05 X10^3/uL (0.83-4.51); Absolute Neutrophil Count 15.6 X10^3/uL (2.0-7.7); Basophil# 0.05 X10^3/uL; Basophil% 0.3 % (0-1); Eosinophil# 0.21 X10^3/uL; Eosinophils% 1.2 % (0-5); Hematocrit 35.2 % (40-54); Hemoglobin 11.1 g/dL (13.0-16.5); Lymphocyte # 1.05 X10^3/ul (0.83-4.51); Lymphocyte % 5.8 % (19-41); Mean Corp Hgb Conc 31.5 g/dL (32-36); Mean Corpuscular Hgb 26.9 pg (27.0-32.0); Mean Corpuscular Volume 85.4 fL (80-94); Mean Platelet Vol. 11.3 fl (6.2-12.0); Monocyte# 1.01 X10^3/uL; Monocyte% 5.6 % (0-10); NRBC Flagged by Analyzer 0 % (0-5); Neutrophil # 15.57 X10^3/uL (2.7-7.7); Neutrophil % 86.6 % (47-70); Platelet Count 217 K/mm3 (150-450); RBC Distribution Width CV 13.2 % (11.6-14.6); RBC Distribution Width SD 40.9 fl (35.1-43.9); Red Blood Count 4.12 M/mm3 (4.6-6.2)
[2021-12-04 02:29] LABS: International Normalized Ratio 1.1; Prothrombin Time (Protime)PT. 13.9 SECONDS (11.7-14.9)
[2021-12-04 02:30] LABS: Partial Thromboplast Time 29.7 Seconds (24.1-36.2)
[2021-12-04 02:45] LABS: ALB/GLOB Ratio 0.7 RATIO (0.9-2.4); AST(SGOT) 19 U/L (15-37); Alanine Aminotransfer ALT/SGPT 21 U/L (16-61); Albumin, Serum 3.1 g/dL (3.2-5.0); Alkaline Phosphatase 114 U/L (45-117); Anion Gap 5 (5-15); BUN 28 mg/dL (7-18); BUN/Creat Ratio 27.2 RATIO (10-20); Calcium,Total 9.3 mg/dL (8.5-10.1); Chloride 100 mmol/L (98-107); Creatinine, Serum 1.03 mg/dL (0.70-1.30); EST Glomerular Filtration Rate 78 mL/min (>60); Est Glom Filt Rate - Afr Amer 94 mL/min (>60); Estimated Creatinine Clearance 76.78 ml/min; Globulin 4.5 g/dL (2.2-4.2); Glucose 225 mg/dL (74-106); Potassium 4.4 mmol/L (3.5-5.1); Protein, Total 7.6 g/dL (6.4-8.2); Sodium Level 139 mmol/L (136-145)
[2021-12-04 02:46] LABS: Lactic Acid 1.1 mmol/L (0.4-1.9)
--- NOTE | 2021-12-04 02:54 | PCM.HP.STD ---
HPI - General General Date of Admission: 12/04/21 HPI Narrative REA HANNA, is a 61 M with a significant history of aspiration pneumonia on 3 L nasal cannula at home and on home PEG tube; diabetes mellitus who presents to the emergency department with chills and fever after choking on coke. His symptoms started several hours before presentation and it persisted. Associated symptoms is cough occasionally productive for clear to yellow thin sputum. He denies any kelly shortness of breath. On presentation to the emergency department ED doc reported that patient was wheezing. Of note patient was at a hospital and discharged on 11/14/2021 for aspiration pneumonia. He received a PEG tube at that time. [facility] Medical History Acute and chronic respiratory failure Acute gout Amputation of one or more toes Anxiety Anxiety and depression Arrhythmia Aspiration into airway Aspiration pneumonia Atherosclerotic heart disease of [place] coronary artery without angina pectoris Bronchiectasis with (acute) exacerbation COPD (chronic obstructive pulmonary disease) CPAP (continuous positive airway pressure) dependence Depression Diabetes Essential hypertension Gastroparesis GERD (gastroesophageal reflux disease) History of aspiration pneumonia History of non-ST elevation myocardial infarction (NSTEMI) (08/2016) Hypertension Kidney stones Leg pain, right Migraines Mood disorder Non-smoker On home oxygen therapy Peripheral vascular occlusive disease Pneumonia Pulmonary nodule, left Right ankle pain Silent aspiration Sleep apnea Type 2 diabetes mellitus Vision loss of left eye Wound of left lower extremity Home Medications acetaminophen 1,000 mg PO QHS PRN PRN 02/11/21 [History Last Taken 09/01/21] insulin lispro See Protocol SQ TIDCM 02/11/21 [History Last Taken 10/01/21] albuterol sulfate 90 mcg/actuation aerosol inhaler 2 puff INHALATION Q4H PRN #8.5 g 07/24/21 [Rx Last Taken 10/01/21] clotrimazole 1 applic TOPICAL BID PRN 08/06/21 [History Last Taken 3 Days Ago ~09/29/21] nystatin [Nyamyc] 1 applic TOPICAL BID PRN 08/06/21 [History Last Taken 3 Days Ago ~09/29/21] losartan 50 mg tablet 25 mg PO DAILY #90 tab 09/25/21 [Rx Last Taken 10/02/21] insulin detemir U-100 100 unit/mL (3 mL) subcutaneous pen 28 unit SUBCUT QHS ml 10/09/21 [History Last Taken Unknown] alprazolam 0.5 mg tablet 0.5 mg PO BID PRN #60 tab 11/03/21 [Rx Last Taken Unknown] aspirin 81 mg tablet,delayed release 81 mg PO DAILY 11/05/21 [History Last Taken Unknown] spironolactone 12.5 mg PO DAILY 11/08/21 [History Last Taken Unknown] trazodone 100 mg tablet 100 mg PO QHS #30 tab 11/10/21 [Rx Last Taken Unknown] loratadine [Allergy Relief (loratadine)] 10 mg G-TUBE DAILY #0 tab 11/14/21 [Rx Last Taken Unknown] oxymetazoline [Nasal [place] (oxymetazoline)] 1 spray NASAL BID #0 ml 11/14/21 [Rx Last Taken Unknown] peg [id number]-[id number] [Artificial Tears(xi-llio-plqw)] 2 drp EACH EYE Q1H PRN #0 ml 11/14/21 [Rx Last Taken Unknown] amlodipine 2.5 mg tablet 2.5 mg G-TUBE DAILY #90 tab 11/25/21 [Rx Last Taken Unknown] atorvastatin 80 mg tablet 80 mg PO QHS #90 tab 11/25/21 [Rx Last Taken Unknown] buspirone 7.5 mg tablet 7.5 mg PO TID #90 tab 11/25/21 [Rx Last Taken Unknown] carvedilol 25 mg tablet 25 mg PO BID #180 tab 11/25/21 [Rx Last Taken Unknown] clopidogrel 75 mg tablet 75 mg PO DAILY #90 tab 11/25/21 [Rx Last Taken Unknown] finasteride 5 mg tablet 5 mg PO DAILY #90 tab 11/25/21 [Rx Last Taken Unknown] fluoxetine 20 mg capsule 20 mg PO DAILY #90 cap 11/25/21 [Rx Last Taken Unknown] fluoxetine 40 mg capsule 40 mg PO DAILY #90 cap 11/25/21 [Rx Last Taken Unknown] furosemide 20 mg tablet 20 mg PO DAILY #90 tab 11/25/21 [Rx Last Taken Unknown] isosorbide mononitrate 30 mg tablet,extended release 24 hr 30 mg PO DAILY #90 tab 11/25/21 [Rx Last Taken Unknown] metoclopramide HCl 5 mg tablet 5 mg PO BID #30 tab 11/25/21 [Rx Last Taken Unknown] nitroglycerin 0.4 mg sublingual tablet 0.4 mg SL Q5M PRN #30 tab 11/25/21 [Rx Last Taken Unknown] pregabalin 75 mg capsule 75 mg PO BID #60 cap 11/25/21 [Rx Last Taken Unknown] trazodone 100 mg tablet 100 mg G-TUBE QHS #90 tab 11/25/21 [Rx Last Taken Unknown] gauze bandage 4 X 4 sponge #1 ea 11/27/21 [Rx Last Taken Unknown] pantoprazole 40 mg tablet,delayed release 40 mg PO DAILY #60 tab 11/27/21 [Rx Last Taken Unknown] sucralfate 100 mg/mL oral suspension 10 ml PO QAC #1000 ml 11/27/21 [Rx Last Taken Unknown] Allergy/AdvReac Type Severity Reaction Status Date / Time allopurinol AdvReac Vomiting Verified 11/08/21 13:54 Influenza Virus Vaccines AdvReac Vomiting Verified 11/08/21 13:54 pneumococcal vaccine AdvReac Vomiting Verified 11/08/21 13:54 Family History Mother Diabetes Heart disease CHF Father Heart disease [place]/CAD Myocardial infarction Surgical History H/O lithotripsy History of angioplasty of peripheral vessel (2016) History of ankle surgery History of coronary artery stent placement (08/2016) History of left heart catheterization (11/15/17) History of thyroid surgery Hx of toe surgery PEG (percutaneous endoscopic gastrostomy) status Social History household members: spouse housing: apartment Smoking Status: Never smoker alcohol intake: never substance use type: does not use ROS ROS Narrative Constitutional: Reports fever, chills. Denies change in weight Eyes: Denies blurry vision, change in eye color, change in vision, discharge from eye(s), double vision, erythema, eye pain, loss of vision or other HEENT: Denies abnormal hearing, dysphagia, ear pain, epistaxis, headache(s), hearing loss, nasal congestion, nasal discharge, post nasal drip, sinus pressure, sore throat or other Cardiovascular: Denies chest pain or palpitations. Respiratory/Chest: Reports cough. Reports occasional productive cough. Denies SOB. Gastrointestinal: Denies abdominal pain, coffee ground emesis, constipation, diarrhea, dyspepsia, hematemesis, hematochezia, loose stools, melena, nausea, vomiting or other Genitourinary: Denies burning urination, difficulty urinating, dysuria, hematuria, nocturia, urinary frequency, urinary hesitancy, urinary incontinence, urinary urgency or other Musculoskeletal: Sore right ankle. Denies arthralgias, back pain, joint pain, joint stiffness, joint swelling, myalgias, neck pain or other Neurologic: Denies abnormal gait, abnormal speech, confusion, disequilibrium, dizziness, focal weakness, headache(s), numbness, paresthesias, seizure-like activity, seizures, syncope, tingling, tremor(s) or other Psychiatric: Denies anxiety, depression, homicidal ideation, suicidal ideation or other Endocrinology: Denies change in body appearance, cold intolerance, excessive sweating, heat intolerance, polydipsia, polyuria or other Hematologic/Lymphatic: Denies anemia, easy bleeding, easy bruising, lymphadenopathy or other Integumentary: Denies rashes Allergic/Immunologic: Denies rhinitis, hives, eczema, asthma or other Vital Signs Vital Signs Vital Signs: 12/04/21 01:18 12/04/21 01:20 12/04/21 01:23 Temperature 99.3 F H 99.3 F H Temperature Source Oral Oral Pulse Rate 88 88 Respiratory Rate 16 16 Respiratory Effort Short of Breath Respiratory Depth Respiratory Pattern Blood Pressure 201/94 H 201/94 H Blood Pressure Mean 129 129 Pulse Ox 98 98 Oxygen Delivery Method Nasal Cannula Nasal Cannula Nasal Cannula Oxygen Flow Rate (L/min) 3 3 12/04/21 01:47 12/04/21 01:51 12/04/21 02:44 Temperature 99.3 F H Temperature Source Oral Pulse Rate 88 85 Respiratory Rate 22 H 20 H Respiratory Effort Short of Breath Labored Respiratory Depth Shallow Respiratory Pattern Tachypnea Blood Pressure 166/84 H Blood Pressure Mean 111 Pulse Ox 94 96 Oxygen Delivery Method Nasal Cannula Nasal Cannula Nasal Cannula Oxygen Flow Rate (L/min) 3 3 3 Weight Weight: 123.8 kg Body Mass Index (BMI) 39.2 Physical Exam Narrative Physical exam: General: Well-nourished, well-developed. Head: Normocephalic, atraumatic, no tenderness Eyes: PERRLA, EOMI ENT, no trauma, moist mucous membranes, no rhinorrhea Neck: Nontender, full range of motion, no spinal tenderness, deformities, step-off CVS: Regular rate and rhythm. S1-S2 present. No murmur, gallop or rub. Respiratory : Rhonchi to right posterior lungs. Chest wall nontender. Abdomen: Soft, nontender, nondistended, normal bowel sounds, no masses : Deferred Back: Nontender, no CVA tenderness, no midline spinal tenderness, deformities, step-offs Extremities: No toes on left foot. Mild tender right ankle. Edema of bilateral feet 2+ left, 1+ to right. Skin: Normal color, no trauma, abrasions Neuro: Alert, oriented, cranial nerves II through XII grossly intact. Psychiatry: Normal mood. Normal affect. Not depressed. Not anxious. Results Lab / Micro Data Result Diagrams: 12/04/21 02:02 12/04/21 02:02 Labs: Laboratory Results - last 24 hr 12/04/21 02:02: WBC 18.0 H, RBC 4.12 L, Hgb 11.1 L, Hct 35.2 L, MCV 85.4, MCH 26.9 L, MCHC 31.5 L, RDW Std Deviation 40.9, RDW Coeff of James 13.2, Plt Count 217, MPV 11.3, Immature Gran % (Auto) 0.500, Neut % (Auto) 86.6 H, Lymph % (Auto) 5.8 L, [place] % (Auto) 5.6, Eos % (Auto) 1.2, Baso % (Auto) 0.3, Absolute Neuts (auto) 15.6 H, Absolute Lymphs (auto) 1.05, Nucleated RBC % 0 12/04/21 02:02: PT 13.9, INR 1.1, APTT 29.7 12/04/21 02:02: Sodium 139, Potassium 4.4, Chloride 100, Carbon Dioxide 34.0 H, Anion Gap 5, BUN 28 H, Creatinine 1.03, Estim Creat Clear Calc 76.78, Est GFR (MDRD) Af Amer 94, Est GFR (MDRD) Non-Af 78, BUN/Creatinine Ratio 27.2 H, Glucose 225 H, Calcium 9.3, Total Bilirubin 0.40, AST 19, ALT 21, Alkaline Phosphatase 114, Total Protein 7.6, Albumin 3.1 L, Globulin 4.5 H, Albumin/Globulin Ratio 0.7 L 12/04/21 02:02: Lactic Acid 1.1 Micro: Microbiology 12/04/21 02:20 Nasal Secretion SARS-CoV-2 Antigen (Rapid) - Final Radiology Impression Chest X-Ray 12/04/21 01:43 IMPRESSION: Aeration in the upper lung parenchyma bilaterally has improved with stable presumed atelectasis or compression of parenchyma in the right base. The left base opacification has slightly increased, attention on follow-up examination to exclude superimposed pneumonia recommended. Electronically Signed: April Meadows MD at 2:41 EST , Service support , Assessment & Plan Assessment/Plan (1) Aspiration pneumonia: QUALIFIERS: Aspiration pneumonia type: due to gastric secretions PLAN: Aspiration pneumonia SIRS criteria: Highest respiratory rate of 22; white count of 18 qSOFA:: 1 (respiratory rate 22) Source of infection: Aspiration pneumonia. Sepsis rule out with qSOFA score. Actual chest x-ray image was independently interpreted. Old chest x-ray were reviewed. Previous chest x-ray and new chest x-ray all with opacities. There appears to be some new changes on previous chest x-ray. Patient with PEG tube and history of aspiration. Patient was choking while drinking Coke. Review of CBC showed a white count of 18 with neutrophilic predominance and with lymphopenia. Given Unasyn in the emergency department and continued. Dysphagia Per patient is currently permitted to occasionally take thin liquids but said the patient may benefit from a pur?ed diet. Speech therapy consult. Tube feeding per home requirements. Diabetes mellitus Patient with hyperglycemia on presentation Basal insulin continued. Accu-Chek every 6 hours with correction scale insulin ordered. Hypertension Blood pressure is not within goal Amlodipine; Lasix and spironolactone continued. As needed hydralazine ordered. Trend blood pressure and adjust blood pressure medications. Chronic anemia Stable Trend CBC. DVT prophylaxis Subcutaneous Lovenox ordered. Charges/Coding Visit Charges Inpatient E&M: 36379 Init Hosp L3
[2021-12-04] MEDS: Acetaminophen 500 MG Tablet 1000 MG PO (02:56)
--- NOTE | 2021-12-04 03:01 | ED.RN ---
Family member mentions PT has home health services set up for today around 1100. [facility] Home Health notified over phone.
--- NOTE | 2021-12-04 04:58 | PCS.PANDOC ---
PANDEMIC DOCUMENTATION INITIATED: Date: 07/14/2021 Time: 190
[2021-12-04] MEDS: Sucralfate 1 GM Tablet PO ×3 (06:25→15:29)
[2021-12-04] MEDS: busPIRone 15 MG TABLET 7.5 MG PO ×2 (06:25→15:29)
[2021-12-04] MEDS: 0.9% Saline Lock 10 ML Syringe IV ×2 (06:36→23:30)
[2021-12-04 06:50] LABS: Bedside Glucose 212 mg/dL (70-110)
[2021-12-04] MEDS: Insulin Lispro 100 UNIT/ML INSULN.PEN SC ×4 (07:03→23:30)
[2021-12-04] MEDS: Enoxaparin 40 MG/0.4 ML Syringe SC (09:47)
[2021-12-04] MEDS: Pregabalin 75 MG Capsule PO (09:47)
[2021-12-04] MEDS: Isosorbide Mononitrate 30 MG Tablet PO (09:47)
[2021-12-04] MEDS: Pantoprazole Sodium 40 MG Tablet PO (09:48)
[2021-12-04] MEDS: Metoclopramide 5 MG TABLET PO (09:48)
[2021-12-04] MEDS: Aspirin E.C. 81 MG Tablet PO (09:48)
[2021-12-04] MEDS: FLUoxetine 20 MG Capsule 60 MG PO (09:48)
[2021-12-04] MEDS: Clopidogrel Bisulfate 75 MG Tablet PO (09:48)
[2021-12-04] MEDS: Carvedilol 25 MG Tablet PO (09:48)
[2021-12-04] MEDS: amLODIPine 2.5 MG Tablet GT (09:48)
[2021-12-04] MEDS: Losartan Potassium 25 MG Tablet PO (09:49)
[2021-12-04] MEDS: Finasteride 5 MG Tablet PO (09:49)
[2021-12-04] MEDS: Spironolactone 25 MG Tablet 12.5 MG PO (09:49)
[2021-12-04] MEDS: Loratadine 10 MG Tablet GT (09:49)
[2021-12-04] MEDS: Furosemide 20 MG Tablet PO (09:49)
[2021-12-04] MEDS: Vital AF 1.2 Cal Liquid 1,000 ML 90 ML GT ×2 (10:37→21:57)
--- NOTE | 2021-12-04 10:55 | CASEMGMT ---
Palliative c/s per Dr. Larkin and e-mailed to [facility]. Order placed. Yessica JENKINS CM
[2021-12-04 12:01] LABS: Bedside Glucose 228 mg/dL (70-110)
--- NOTE | 2021-12-04 15:14 | PCM.HOSP.N ---
Hospitalist Note Mr. Linda is a 61-year-old male who has had 13 admissions in the past calendar year predominantly for aspiration pneumonia. During his last hospitalization a PEG tube was placed and he was discharged home. He states he has been using tube feed regularly but last night he was drinking a sip of Coke and suffered aspiration with regards to this. He is clinically improved and back down to his baseline oxygen at 3 L today. His discharge instructions did indicate he was allowed a mechanical soft and thin liquid diet at his last discharge despite having a PEG tube placed. We have requested speech therapy to reevaluate the patient. Continue empiric antibiotics at this point to cover aspiration. Likely discharge tomorrow if patient remains stable and on his baseline oxygen supplementation. I do suspect that we may need to make him n.p.o. versus have him on thickened liquids at discharge.
--- NOTE | 2021-12-04 15:24 | CASEMGMT ---
Readmission Review Note: Index: 11/08 - 11/14/21 Pt with frequent readmissions in 2020 for aspiration secondary to gastroparesis, GERD, and esophageal dysphagia. Pt also with comorbidities including chronic respiratory failure, COPD, CHF, anxiety/depression, CAD, HTN, sleep apnea, and DM II. Pt had GJ tube placed on this admission in an attempt to prevent future aspirations. Pt refused other surgical interventions including Malinda fundoplication. Readmission: Aspiration pneumonia after choking on Coke. Discharge planning: Pt has been referred to palliative care but does not return post-discharge calls for further establishment of care. Pt has the support of his significant other and family for assistance with ADLs and TF care and was set up with [facility] for SN, ST, PT, FORGING ROLL OPERATOR services for post-acute services. Pt was also referred to [facility] when skilled services are completed. Pt had declined home ST services in the past d/t timing and frequency of visits. ALICE Ward at [facility] was to help facilitate these visits to be more conducive to pt's tolerance. Pt also with home O2 thru [facility] with last noted script for 2l/min at rest and 3l/min w/exertion. TF supplies are thru [employer]. Pt was a no show to his appointment with Rubio Dobson on 11/18. Pt has appointments scheduled for 12/[address] Rodriguez and 12/[address] Brown. Will continue to monitor and assist with discharge planning needs as determined. Cole Boyle RN CM
--- NOTE | 2021-12-04 15:28 | CON.PCM.PA_ITS ---
Assessment & Plan Assessment/Plan (1) Chronic respiratory failure with hypoxia: (2) Anxiety and depression: (3) Weakness: (4) Lower extremity neuropathy: QUALIFIERS: Laterality: bilateral Qualified Code(s): G57.93 - Unspecified mononeuropathy of bilateral lower limbs PLAN: Deonte is a 61-year-old male who was referred to palliative medicine related to recurrent hospitalizations, shortness of breath, weakness, debility, and recurrent aspiration with associated pneumonia. 1. Dyspnea and shortness of breath related to acute on chronic respiratory failure and recurrent aspiration pneumonitis. He has significant/severe dyspnea with exertion, recurrent hospitalizations for acute respiratory failure secondary to aspiration events and pneumonia. Continue current medications and treatments as ordered. Continue to follow GI and speech therapy recommendations. Palliative is willing to follow at home and monitor medication compliance, assist with symptom management, and hopefully decrease recurrent hospitalizations. Given the severity of his symptoms and dependence on oxygen, he may be an appropriate candidate for low-dose opioid therapy to decrease his work of breathing. Would need to evaluate at his baseline and assess his opioid risk tool. 2. Anxiety and depression. Currently managed on Xanax, BuSpar, and fluoxetine daily. He does not take any as needed medications for his anxiety. Palliative would work with PCP and could provide social work manager for education of coping skills for ongoing management of his anxiety and counseling support. There is a component associated with his shortness of breath and work of breathing. He also verbalizes some anxiety about recurrently aspirating and the consequences of such. 3. Weakness and debility. Encourage PT/OT evaluation and treatment. Patient has recently qualified for [employer] services, which may provide in-home therapy. 4. Lower extremity neuropathy secondary to DM2 and previous toe amputations, currently well-controlled on Lyrica. Palliative will monitor and provide medication titration as necessary. 5. Dysphagia: continue to follow ST and GI recommendations. Olive Picker to follow as an outpatient for tube feeding recommendations. 6. CHF/MARY/HTN/CAD/PAD/GERD/COPD all complicate overall care and management, increase risk of morbidity and mortality. Thank you for the opportunity to participate in this patient's care. Please do not hesitate to contact [facility] with any further questions or concerns. Palliative direct line is [phone]. We will follow and have the liaison contact the significant other following his hospital discharge to set up home appointment. Greater than 50% of [id number] visit was dedicated to education and counseling about palliative care services, medications, comorbid conditions, and potential assistance with management and care coordination moving forward. Start time: 1528 Stop time: 1705 HPI Consult Data Date of Consult: 12/04/21 HPI Narrative HPI Narrative: REA HANNA, is a 61 M who has been referred to [facility] (now [facility]) for frequent and recurrent hospitalization, recurrent aspiration with pneumonitis s/p PEG tube, debility, and shortness of breath. He has a very extensive past medical history that includes chronic respiratory failure, complicated type 2 diabetes, anxiety, depression, COPD, MARY with CPAP use, gastroparesis, GERD, non-STEMI, CAD, and lower extremity wounds s/p toe amputation. He has been referred to Palliative previously and evaluated in the hospital, but has not returned repeated calls to schedule in-home visits. He is agreeable to today's visit. This admission he presented to the Emergency Department on 12/04/2021 with cough and shortness of breath 10 hours after a suspected aspiration event at home while drinking a soda. Patient had a PEG tube placed on November 12, 2021, after multiple hospitalizations for similar presentations (13 total admissions). He was diagnosed with gastroparesis secondary to type 2 diabetes mellitus. He has primarily to be taking medications and nutrition via the PEG tube, but does frequently have oral intake, which was not recommended given his recurrent aspiration. CXR shows stable atelectasis of the right base, left base opacification has increased, and possible superimposed pneumonia. WBC 18.0 with L-shift. He has been started on Unasyn IV. Speech therapy evaluation today recommends single-sips of water with HOB elevated; plan to follow-up with GI physician to discuss risks/benefits of procedures that may improve pharyngoesophageal swallowing function (Malinda fundoplication). Patient is seen in his room in conjunction with his significant other, Gabriela, who contributes to the assessment and conversation. He denies any significant distress at the time of this encounter. He does have chronic dyspnea, which has worsened over the last 24 hours secondary to his acute aspiration event. He wears 3 L/min of supplemental oxygen via nasal cannula continuously at home, and occasionally uses up to 4 L/min with exertion. He lives in a single-story home and is independently ambulatory to the bathroom and bedroom with the use of a Rollator. He sleeps in a recliner, where he spends most of the day given his severe orthopnea. Gabriela is his primary caregiver and is agreeable to a palliative appointment at home following his hospital discharge. [facility] Medical History Acute and chronic respiratory failure Acute gout Amputation of one or more toes Anxiety Anxiety and depression Arrhythmia Aspiration into airway Aspiration pneumonia Atherosclerotic heart disease of [place] coronary artery without angina pectoris Bronchiectasis with (acute) exacerbation COPD (chronic obstructive pulmonary disease) CPAP (continuous positive airway pressure) dependence Depression Diabetes Essential hypertension Gastroparesis GERD (gastroesophageal reflux disease) History of aspiration pneumonia History of non-ST elevation myocardial infarction (NSTEMI) (08/2016) Hypertension Kidney stones Leg pain, right Migraines Mood disorder Non-smoker On home oxygen therapy Peripheral vascular occlusive disease Pneumonia Pulmonary nodule, left Right ankle pain Silent aspiration Sleep apnea Type 2 diabetes mellitus Vision loss of left eye Wound of left lower extremity Home Medications acetaminophen 1,000 mg PO QHS PRN PRN 02/11/21 [History Last Taken 09/01/21] insulin lispro See Protocol SQ TIDCM 02/11/21 [History Last Taken 10/01/21] albuterol sulfate 90 mcg/actuation aerosol inhaler 2 puff INHALATION Q4H PRN #8.5 g 07/24/21 [Rx Last Taken 10/01/21] clotrimazole 1 applic TOPICAL BID PRN 08/06/21 [History Last Taken 3 Days Ago ~09/29/21] nystatin [[facility]] 1 applic TOPICAL BID PRN 08/06/21 [History Last Taken 3 Days Ago ~09/29/21] losartan 50 mg tablet 25 mg PO DAILY #90 tab 09/25/21 [Rx Last Taken 10/02/21] insulin detemir U-100 100 unit/mL (3 mL) subcutaneous pen 28 unit SUBCUT QHS ml 10/09/21 [History Last Taken Unknown] alprazolam 0.5 mg tablet 0.5 mg PO BID PRN #60 tab 11/03/21 [Rx Last Taken Unknown] aspirin 81 mg tablet,delayed release 81 mg PO DAILY 11/05/21 [History Last Taken Unknown] spironolactone 12.5 mg PO DAILY 11/08/21 [History Last Taken Unknown] trazodone 100 mg tablet 100 mg PO QHS #30 tab 11/10/21 [Rx Last Taken Unknown] loratadine [Allergy Relief (loratadine)] 10 mg G-TUBE DAILY #0 tab 11/14/21 [Rx Last Taken Unknown] oxymetazoline [Nasal [place] (oxymetazoline)] 1 spray NASAL BID #0 ml 11/14/21 [Rx Last Taken Unknown] peg [id number] [Artificial Tears([id number])] 2 drp EACH EYE Q1H PRN #0 ml 11/14/21 [Rx Last Taken Unknown] amlodipine 2.5 mg tablet 2.5 mg G-TUBE DAILY #90 tab 11/25/21 [Rx Last Taken Unknown] atorvastatin 80 mg tablet 80 mg PO QHS #90 tab 11/25/21 [Rx Last Taken Unknown] buspirone 7.5 mg tablet 7.5 mg PO TID #90 tab 11/25/21 [Rx Last Taken Unknown] carvedilol 25 mg tablet 25 mg PO BID #180 tab 11/25/21 [Rx Last Taken Unknown] clopidogrel 75 mg tablet 75 mg PO DAILY #90 tab 11/25/21 [Rx Last Taken Unknown] finasteride 5 mg tablet 5 mg PO DAILY #90 tab 11/25/21 [Rx Last Taken Unknown] fluoxetine 20 mg capsule 20 mg PO DAILY #90 cap 11/25/21 [Rx Last Taken Unknown] fluoxetine 40 mg capsule 40 mg PO DAILY #90 cap 11/25/21 [Rx Last Taken Unknown] furosemide 20 mg tablet 20 mg PO DAILY #90 tab 11/25/21 [Rx Last Taken Unknown] isosorbide mononitrate 30 mg tablet,extended release 24 hr 30 mg PO DAILY #90 tab 11/25/21 [Rx Last Taken Unknown] metoclopramide HCl 5 mg tablet 5 mg PO BID #30 tab 11/25/21 [Rx Last Taken Unknown] nitroglycerin 0.4 mg sublingual tablet 0.4 mg SL Q5M PRN #30 tab 11/25/21 [Rx Last Taken Unknown] pregabalin 75 mg capsule 75 mg PO BID #60 cap 11/25/21 [Rx Last Taken Unknown] trazodone 100 mg tablet 100 mg G-TUBE QHS #90 tab 11/25/21 [Rx Last Taken Unknown] gauze bandage 4 X 4 sponge #1 ea 11/27/21 [Rx Last Taken Unknown] pantoprazole 40 mg tablet,delayed release 40 mg PO DAILY #60 tab 11/27/21 [Rx Last Taken Unknown] sucralfate 100 mg/mL oral suspension 10 ml PO QAC #1000 ml 11/27/21 [Rx Last Taken Unknown] Allergy/AdvReac Type Severity Reaction Status Date / Time allopurinol AdvReac Vomiting Verified 11/08/21 13:54 Influenza Virus Vaccines AdvReac Vomiting Verified 11/08/21 13:54 pneumococcal vaccine AdvReac Vomiting Verified 11/08/21 13:54 Family History Mother Diabetes Heart disease CHF Father Heart disease VA/CAD Myocardial infarction Surgical History H/O lithotripsy History of angioplasty of peripheral vessel (2016) History of ankle surgery History of coronary artery stent placement (08/2016) History of left heart catheterization (11/15/17) History of thyroid surgery Hx of toe surgery PEG (percutaneous endoscopic gastrostomy) status Social History household members: spouse housing: apartment Smoking Status: Never smoker alcohol intake: never substance use type: does not use ROS Constitutional Constitutional: Reports systems reviewed and no addt'l complaints, except as documented and as per HPI Physical Exam Const alert and oriented x3 General Appearance: cooperative, comfortable, disheveled, ill appearing Positive for chronically and appears older than stated age Orientation / Consciousness: awake, oriented to person, oriented to place and oriented to time Exam Limitations: physical limitations Nutritional Appearance: obese HEENT normocephalic and head/scalp atraumatic Nose: external nose normal External Ear: external ears normal Mouth: oral and palatal mucosa normal Teeth and Gingiva: poor dentition Eyes PERRL, EOMs intact bilaterally and conjunctivae normal Resp normal respiratory effort, No normal air movement, no retractions and no use of accessory muscles Resp Narrative: Moist, productive cough of green sputum Effort and Inspection: able to speak in complete sentences and symmetric chest movement; Negative for respiratory distress Auscultation: diminished lung sounds bilateral lower Cardio regular rate, regular rhythm, S1 normal heart sound, S2 normal heart sound and peripheral pulses 2+ throughout GI normal to inspection, nondistended, normoactive bowel sounds GI Narrative: PEG dry/intact, tube feed at 90mL/hr Neuro oriented x3, CN's II-XII intact bilaterally and moves all extremities Psych mental status grossly normal, thought process normal, cooperative and speech normal Appearance: unkempt Attitude: calm Activity / Motor Behavior: avoids eye contact Mood & Affect: flat affect Insight: limited Judgement: fair
--- NOTE | 2021-12-04 16:00 | CASEMGMT ---
Per Ela, welding systems and equipment repairer, [facility] speech was supposed to be working on order for OP welding systems and equipment repairer consult thru pt's PCP to manage tube feeds at home. Call to Jessica at [facility] to inquire about this order. CM to follow. Yessica JENKINS CM
[2021-12-04 17:26] LABS: Bedside Glucose 292 mg/dL (70-110)
[2021-12-04] MEDS: busPIRone 15 MG TABLET 7.5 MG GT (20:51)
[2021-12-04] MEDS: Carvedilol 25 MG Tablet GT (20:51)
[2021-12-04] MEDS: traZODone 100 MG Tablet GT (20:52)
[2021-12-04] MEDS: Atorvastatin Calcium 80 MG Tablet GT (20:53)
[2021-12-04] MEDS: Metoclopramide 5 MG TABLET GT (20:53)
[2021-12-04] MEDS: Pregabalin 75 MG Capsule GT (20:59)
[2021-12-04 21:45] LABS: Bedside Glucose 288 mg/dL (70-110)
[2021-12-04 23:40] LABS: Bedside Glucose 296 mg/dL (70-110)
--- NOTE | 2021-12-05 02:44 | NURSING ---
tube feedings stopped at this time d/t being started late. PEG flushed.
[2021-12-05 03:10] VITALS: BP 159/76; PULSE 50; RESP 17; TEMP 36.4; O2SAT 99
[2021-12-05] MEDS: busPIRone 15 MG TABLET 7.5 MG GT ×2 (05:38→13:57)
[2021-12-05] MEDS: Sucralfate 1 GM Tablet GT ×2 (05:38→10:07)
[2021-12-05] MEDS: 0.9% Saline Lock 10 ML Syringe IV (05:39)
[2021-12-05] MEDS: Insulin Lispro 100 UNIT/ML INSULN.PEN SC ×2 (05:41→12:29)
[2021-12-05 05:56] LABS: Bedside Glucose 169 mg/dL (70-110)
[2021-12-05 06:50] LABS: Absolute Lymphocyte Count 2.04 X10^3/uL (0.83-4.51); Absolute Neutrophil Count 7.2 X10^3/uL (2.0-7.7); Basophil# 0.05 X10^3/uL; Basophil% 0.5 % (0-1); Eosinophils% 2.8 % (0-5); Hematocrit 31.4 % (40-54); Hemoglobin 9.9 g/dL (13.0-16.5); Lymphocyte # 2.04 X10^3/ul (0.83-4.51); Lymphocyte % 19.2 % (19-41); Mean Corp Hgb Conc 31.5 g/dL (32-36); Mean Corpuscular Hgb 26.9 pg (27.0-32.0); Mean Corpuscular Volume 85.3 fL (80-94); Mean Platelet Vol. 11.5 fl (6.2-12.0); Monocyte# 1.01 X10^3/uL; Monocyte% 9.5 % (0-10); NRBC Flagged by Analyzer 0 % (0-5); Neutrophil # 7.21 X10^3/uL (2.7-7.7); Neutrophil % 67.6 % (47-70); Platelet Count 177 K/mm3 (150-450); RBC Distribution Width CV 13.4 % (11.6-14.6); RBC Distribution Width SD 41.7 fl (35.1-43.9); Red Blood Count 3.68 M/mm3 (4.6-6.2); White Blood Count 10.7 K/mm3 (4.4-11.0)
[2021-12-05] MEDS: Ipratropium/Albuterol Sulfate 3 ML AMPUL.NEB INHALATION ×2 (06:52→12:10)
[2021-12-05 06:53] VITALS: PULSE 83; RESP 16; O2SAT 94
[2021-12-05 07:22] LABS: Anion Gap 3 (5-15); BUN 27 mg/dL (7-18); BUN/Creat Ratio 27.4 RATIO (10-20); Calcium,Total 8.8 mg/dL (8.5-10.1); Chloride 103 mmol/L (98-107); Creatinine, Serum 0.99 mg/dL (0.70-1.30); EST Glomerular Filtration Rate 82 mL/min (>60); Est Glom Filt Rate - Afr Amer 99 mL/min (>60); Estimated Creatinine Clearance 79.88 ml/min; Glucose 201 mg/dL (74-106); Potassium 3.8 mmol/L (3.5-5.1); Sodium Level 139 mmol/L (136-145)
[2021-12-05] MEDS: Vital AF 1.2 Cal Liquid 1,000 ML 90 ML GT (08:58)
[2021-12-05 09:10] VITALS: BP 154/93; PULSE 58; RESP 18; TEMP 36.7; O2SAT 98
[2021-12-05 10:02] VITALS: O2SAT 92; O2SAT 96
[2021-12-05] MEDS: Pregabalin 75 MG Capsule GT (10:05)
[2021-12-05] MEDS: amLODIPine 2.5 MG Tablet GT (10:05)
[2021-12-05] MEDS: Spironolactone 25 MG Tablet 12.5 MG GT (10:05)
[2021-12-05] MEDS: Carvedilol 25 MG Tablet GT (10:06)
[2021-12-05] MEDS: FLUoxetine 20 MG Capsule 60 MG GT (10:06)
[2021-12-05] MEDS: Finasteride 5 MG Tablet GT (10:06)
[2021-12-05] MEDS: Furosemide 20 MG Tablet GT (10:06)
[2021-12-05] MEDS: Aspirin 81 MG TAB.CHEW GT (10:06)
[2021-12-05] MEDS: Isosorbide Mononitrate 30 MG Tablet PO (10:06)
[2021-12-05] MEDS: Loratadine 10 MG Tablet GT (10:06)
[2021-12-05] MEDS: Losartan Potassium 25 MG Tablet GT (10:06)
[2021-12-05] MEDS: Clopidogrel Bisulfate 75 MG Tablet GT (10:07)
[2021-12-05] MEDS: Pantoprazole Sodium 40 MG Tablet PO (10:07)
[2021-12-05] MEDS: Metoclopramide 5 MG TABLET GT (10:07)
[2021-12-05] MEDS: Enoxaparin 40 MG/0.4 ML Syringe SC (10:07)
--- NOTE | 2021-12-05 11:08 | CASEMGMT ---
Addendum entered by Becca Christensen 12/05/21 13:18: Per Catarino JENKINS, pt does not qualify for increased home oxygen at discharge. Pt/sig other voice no further questions/concerns/needs. Yessica JENKINS CM Original Note: Per Dr. Larkin, plan is for pt to discharge today. Catarino RN aware to test pt on 2L at rest and 3L w/ exertion. Call to Jessica at [facility] to update on plan for discharge and ZULMA order placed. Jessica also aware that pt is to be NPO until f/u with GI per speech recommendation. Jessica voices no further questions/concerns/needs. Yessica JENKINS CM
[2021-12-05 11:56] LABS: Bedside Glucose 222 mg/dL (70-110)
[2021-12-05 12:11] VITALS: PULSE 68; RESP 17
--- NOTE | 2021-12-05 13:16 | DS.PCM_ITS ---
Providers Date of Admission: 12/04/21 Primary Care Physician: Dr. Doretha Brown MD Reason For Visit: ASPIRATION PNEUMONIA Diagnosis Discharge Diagnosis (1) Chronic respiratory failure with hypoxia: Status: Chronic Code(s): J96.11 - Chronic respiratory failure with hypoxia (2) Anxiety and depression: Status: Acute Code(s): F41.9 - Anxiety disorder, unspecified; F32.9 - Major depressive disorder, single episode, unspecified (3) Weakness: Status: Acute Code(s): R53.1 - Weakness (4) Lower extremity neuropathy: Status: Resolved Code(s): G57.90 - Unspecified mononeuropathy of unspecified lower limb Qualifiers: Laterality: bilateral Qualified Code(s): G57.93 - Unspecified mononeuropathy of bilateral lower limbs Medications at Discharge Home Medications acetaminophen 1,000 mg PO QHS PRN PRN 02/11/21 insulin lispro See Protocol SQ TIDCM 02/11/21 albuterol sulfate 90 mcg/actuation aerosol inhaler 2 puff INHALATION Q4H PRN #8.5 g 07/24/21 clotrimazole 1 applic TOPICAL BID PRN 08/06/21 nystatin [Nyamyc] 1 applic TOPICAL BID PRN 08/06/21 losartan 50 mg tablet 25 mg PO DAILY #90 tab 09/25/21 insulin detemir U-100 100 unit/mL (3 mL) subcutaneous pen 28 unit SUBCUT QHS ml 10/09/21 alprazolam 0.5 mg tablet 0.5 mg PO BID PRN #60 tab 11/03/21 aspirin 81 mg tablet,delayed release 81 mg PO DAILY 11/05/21 spironolactone 12.5 mg PO DAILY 11/08/21 trazodone 100 mg tablet 100 mg PO QHS #30 tab 11/10/21 Artificial Tears([id number]) 2 drp EACH EYE Q1H PRN #0 ml 11/14/21 loratadine [Allergy Relief (loratadine)] 10 mg G-TUBE DAILY #0 tab 11/14/21 oxymetazoline [Nasal [place] (oxymetazoline)] 1 spray NASAL BID #0 ml 11/14/21 amlodipine 2.5 mg tablet 2.5 mg G-TUBE DAILY #90 tab 11/25/21 atorvastatin 80 mg tablet 80 mg PO QHS #90 tab 11/25/21 buspirone 7.5 mg tablet 7.5 mg PO TID #90 tab 11/25/21 carvedilol 25 mg tablet 25 mg PO BID #180 tab 11/25/21 clopidogrel 75 mg tablet 75 mg PO DAILY #90 tab 11/25/21 finasteride 5 mg tablet 5 mg PO DAILY #90 tab 11/25/21 fluoxetine 20 mg capsule 20 mg PO DAILY #90 cap 11/25/21 fluoxetine 40 mg capsule 40 mg PO DAILY #90 cap 11/25/21 furosemide 20 mg tablet 20 mg PO DAILY #90 tab 11/25/21 isosorbide mononitrate 30 mg tablet,extended release 24 hr 30 mg PO DAILY #90 tab 11/25/21 metoclopramide HCl 5 mg tablet 5 mg PO BID #30 tab 11/25/21 nitroglycerin 0.4 mg sublingual tablet 0.4 mg SL Q5M PRN #30 tab 11/25/21 pregabalin 75 mg capsule 75 mg PO BID #60 cap 11/25/21 trazodone 100 mg tablet 100 mg G-TUBE QHS #90 tab 11/25/21 gauze bandage 4 X 4 sponge #1 ea 11/27/21 pantoprazole 40 mg tablet,delayed release 40 mg PO DAILY #60 tab 11/27/21 sucralfate 100 mg/mL oral suspension 10 ml PO QAC #1000 ml 11/27/21 amoxicillin-pot clavulanate [Augmentin] 10 ml PO Q8H #150 ml 12/05/21 Hospital Course Operations None Procedures None Summary of Care Provided Minutes Spent on Discharge: 37 Hospital Course: Mr. Linda is a 61-year-old male who is well-known to our service for frequent admissions with aspiration pneumonia. He is on 3 L nasal cannula at baseline chronically. A PEG tube was placed at his most recent admission at which time he was discharged on 11/14/2021 with instructions for utilization of his PEG tube but he is also placed on a mechanical soft thin liquid diet at that time. He presented back to the emergency department on 12/04/2021 after suffering an aspiration episode just prior when he choked on [employer]. His symptoms started a few hours prior to presentation and persisted and therefore he presented to the emergency department. His symptoms were associated with occasional cough that was productive of thin to yellowish sputum but he denied kelly shortness of breath. On presentation the emergency department he had some wheezing and was tachypneic with a respiratory rate of 22 and a white count of 18. Sepsis was ruled out as his qSOFA score was 1. Chest x-ray done on admission showed new opacities that were concerning for aspiration pneumonia and he was admitted to the hospital was placed on Unasyn. Per discussion with his significant other on admission he has occasionally been taking thin liquids but there was concern that maybe this was too much for him. He was evaluated by speech therapy during his hospitalization here and given recent events and previous modified barium swallow as he was made n.p.o. and cleared for [facility] protocol. His significant other had already been trained in PEG tube feeding and she was doing this at home prior to admission. Patient has follow-up with gastroenterology to pursue further treatments with regards to his dysphagia and chronic aspiration and this appointment is early next week. I encouraged him strongly to keep this appointment and he voiced understanding and stated he would. His oxygen status returned to baseline and his clinical exam normalized and he was able to be discharged on 12/05/2021. He was given of course of Augmentin to complete antibiotics for aspiration pneumonia. He has home health set up for continued speech therapy and monitoring of his tube feeds. He was instructed to follow-up with his primary care physician in 1-[address] Rodriguez from gastroenterology as scheduled. Discharge diagnoses: Aspiration pneumonia Dysphagia CKD stage IIIa DM-2 Chronic anemia CAD Hypertension Hyperlipidemia Anxiety Depression Obesity GERD Physical Exam Const alert, oriented x3 and no apparent distress Constitutional Narrative: Obese white male lying in bed with nursing at the bedside flushing PEG tube, significant other at the bedside, patient appears comfortable and nontoxic, asking if he can go home today General Appearance: cooperative, comfortable, well kempt and well developed Orientation / Consciousness: awake Nutritional Appearance: obese HEENT normocephalic, head/scalp atraumatic, hearing grossly normal bilaterally and risa st oral mucous membranes HEENT Narrative: Mallampati 3, no thrush Eyes PERRL, EOMs intact bilaterally and conjunctivae normal Eyes Narrative: No scleral icterus Neck no lymphadenopathy, supple and no JVD Neck Narrative: Trachea midline Resp normal respiratory effort, no retractions, no use of accessory muscles and clear to auscultation bilaterally Resp Narrative: Diffusely diminished but clear today Auscultation: Negative for crackles, rales, rhonchi or wheezes Cardio regular rate, regular rhythm, S1 normal heart sound, S2 normal heart sound, no murmurs, no rub, no gallops, no clicks and no JVD GI normal to inspection, nondistended, normoactive bowel sounds, soft to palpation, non-tender and non-distended GI Narrative: PEG in place left upper quadrant-clean and dry Extremity no clubbing, cyanosis or edema Skin no rashes or lesions noted Neuro oriented x3, CN's II-XII intact bilaterally, moves all extremities and no focal motor deficits Sensorium / Orientation: awake and alert Speech: speech normal Motor Exam: strength 5/5 throughout Psych affect normal Weight / BMI Weight Weight: 119.9 kg Body Mass Index (BMI) 37.8 ABG / Lab / Microbiology Data Result Diagrams: 12/05/21 06:21 12/05/21 06:21 Laboratory: Laboratory Results - last 24 hr 12/04/21 17:17: POC Glucose 292 H 12/04/21 20:49: POC Glucose 288 H 12/04/21 23:32: POC Glucose 296 H 12/05/21 05:42: POC Glucose 169 H 12/05/21 06:21: WBC 10.7, RBC 3.68 L, Hgb 9.9 L, Hct 31.4 L, MCV 85.3, MCH 26.9 L, MCHC 31.5 L, RDW Std Deviation 41.7, RDW Coeff of James 13.4, Plt Count 177, MPV 11.5, Immature Gran % (Auto) 0.400, Neut % (Auto) 67.6, Lymph % (Auto) 19.2, [place] % (Auto) 9.5, Eos % (Auto) 2.8, Baso % (Auto) 0.5, Absolute Neuts (auto) 7.2, Absolute Lymphs (auto) 2.04, Nucleated RBC % 0 12/05/21 06:21: Sodium 139, Potassium 3.8, Chloride 103, Carbon Dioxide 33.0 H, Anion Gap 3 L, BUN 27 H, Creatinine 0.99, Estim Creat Clear Calc 79.88, Est GFR (MDRD) Af Amer 99, Est GFR (MDRD) Non-Af 82, BUN/Creatinine Ratio 27.4 H, Glucose 201 H, Calcium 8.8 12/05/21 11:49: POC Glucose 222 H Microbiology: Microbiology 12/04/21 02:20 Nasal Secretion SARS-CoV-2 Antigen (Rapid) - Final D/C Instructions Discharge Diet: - (Nothing by mouth except for water via Perez free protocol discussed with you by speech therapy) Discharge Activity: Return to Normal Activity Meaningful Use Info Meaningful Use Diagnoses (Choose all that apply): None applicable Discharge Plan Admission Admit Date/Time: 12/04/21 02:59 Primary Reason for Your Visit: Aspiration Attending Provider: Alicia Larkin Primary Care Provider: Doretha Brown Instructions Additional Instructions / Restrictions: 1. Nothing by mouth other than Perez free protocol as directed by speech therapy 2. Continue home speech therapy as ordered 3. Follow-up with Dr. Rodriguez from gastroenterology as scheduled for next week Discharge Orders/Prescriptions Prescriptions: New amoxicillin-pot clavulanate [Augmentin] 250-62.5 mg/5 mL suspension for reconstitution 10 ml PO Q8H Qty: 150 RF: 0 Continued albuterol sulfate 90 mcg/actuation HFA aerosol inhaler 2 puff inhalation Q4H PRN (Reason: shortness of breath or wheezing) Qty: 8.5 RF: 3 losartan 50 mg tablet 25 mg PO DAILY Qty: 90 RF: 1 aspirin [Adult Aspirin Regimen] 81 mg tablet,delayed release (DR/EC) 81 mg PO DAILY RF: 0 insulin detemir U-100 100 unit/mL (3 mL) insulin pen 28 unit subcut QHS RF: 0 acetaminophen 500 MG tablet 1,000 mg PO QHS PRN PRN (Reason: Pain 1-10 Or Fever) RF: 0 insulin lispro 100 UNIT/ML insulin pen See Protocol unit SQ TIDCM RF: 0 nystatin [Nyamyc] 100,000 unit/gram powder 1 applic topical BID PRN (Reason: Rash) RF: 0 clotrimazole 1 % cream 1 applic topical BID PRN (Reason: Rash) RF: 0 spironolactone 25 mg tablet 12.5 mg PO DAILY RF: 0 loratadine [Allergy Relief (loratadine)] 10 mg Tablet 10 mg G-tube DAILY Qty: 0 RF: 0 oxymetazoline [Nasal [place] (oxymetazoline)] 0.05 % [place],Non-Aerosol 1 spray NASAL BID Qty: 0 RF: 0 Artificial Tears([id number]) 1-0.2-0.2 % Drops 2 drp EACH EYE Q1H PRN (Reason: DRY EYES) Qty: 0 RF: 0 alprazolam 0.5 mg tablet 0.5 mg PO BID PRN (Reason: anxiety) Qty: 60 RF: 0 trazodone 100 mg tablet 100 mg PO QHS Qty: 30 RF: 0 amlodipine 2.5 mg tablet 2.5 mg G-tube DAILY Qty: 90 RF: 0 atorvastatin 80 mg tablet 80 mg PO QHS Qty: 90 RF: 0 buspirone 7.5 mg tablet 7.5 mg PO TID Qty: 90 RF: 0 carvedilol 25 mg tablet 25 mg PO BID Qty: 180 RF: 0 clopidogrel 75 mg tablet 75 mg PO DAILY Qty: 90 RF: 0 finasteride 5 mg tablet 5 mg PO DAILY Qty: 90 RF: 0 fluoxetine 20 mg capsule 20 mg PO DAILY Qty: 90 RF: 0 fluoxetine 40 mg capsule 40 mg PO DAILY Qty: 90 RF: 0 furosemide 20 mg tablet 20 mg PO DAILY Qty: 90 RF: 0 isosorbide mononitrate 30 mg tablet extended release 24 hr 30 mg PO DAILY Qty: 90 RF: 0 metoclopramide HCl [Reglan] 5 mg tablet 5 mg PO BID Qty: 30 RF: 0 nitroglycerin 0.4 mg tablet, sublingual 0.4 mg SL Q5M PRN (Reason: Chest Pain) Qty: 30 RF: 0 pregabalin [Lyrica] 75 mg capsule 75 mg PO BID Qty: 60 RF: 1 trazodone 100 mg tablet 100 mg G-tube QHS Qty: 90 RF: 0 pantoprazole [Protonix] 40 mg tablet,delayed release (DR/EC) 40 mg PO DAILY Qty: 60 RF: 3 sucralfate 100 mg/mL suspension 10 ml PO QAC Qty: 1000 RF: 0 (DME) Curity Gauze 4 X 4 sponge See Rx Instructions .ROUTE .MEDSUPPLY Qty: 1 RF: 0 Referrals / Follow Up: Doretha Brown MD [Primary Care Provider] - Within 2 Weeks FriendArjun DO [STAFF PHYSICIAN] - See Referral Note (As scheduled) Disposition Disposition (needs filled in before D/C Order can be placed): Home, Self Care Charges/Coding Visit Charges Inpatient E&M: 19265 Disch Hosp
[2021-12-05 13:22] VITALS: BP 131/57; PULSE 56; RESP 16; TEMP 36.9; O2SAT 98
--- NOTE | 2021-12-05 14:22 | PHA.DC.MC ---
Pharmacy Service has performed discharge medication reconciliation and counseling for this patient. The patient was counseled on the following discharge medications and changes in medications for homegoing were reviewed. 1. AUGMENTIN The Reason for Use, instructions for use, and potential side effects were reviewed for all new medications. The patient's questions regarding all of their medications were answered. The patient was able to verbally demonstrate an understanding of their discharge medications. NOTE: ALSO DISCUSSED WITH PATIENT IMPORTANCE OF CARAFATE WITH OTHER MEDICATIONS, EXPLAINED MOA AND ANSWERED ALL OTHER QUESTIONS. Home Medications acetaminophen 1,000 mg PO QHS PRN PRN 02/11/21 insulin lispro See Protocol SQ TIDCM 02/11/21 albuterol sulfate 90 mcg/actuation aerosol inhaler 2 puff INHALATION Q4H PRN #8.5 g 07/24/21 clotrimazole 1 applic TOPICAL BID PRN 08/06/21 nystatin [Nyamyc] 1 applic TOPICAL BID PRN 08/06/21 losartan 50 mg tablet 25 mg PO DAILY #90 tab 09/25/21 insulin detemir U-100 100 unit/mL (3 mL) subcutaneous pen 28 unit SUBCUT QHS ml 10/09/21 alprazolam 0.5 mg tablet 0.5 mg PO BID PRN #60 tab 11/03/21 aspirin 81 mg tablet,delayed release 81 mg PO DAILY 11/05/21 spironolactone 12.5 mg PO DAILY 11/08/21 trazodone 100 mg tablet 100 mg PO QHS #30 tab 11/10/21 Artificial Tears([id number]) 2 drp EACH EYE Q1H PRN #0 ml 11/14/21 loratadine [Allergy Relief (loratadine)] 10 mg G-TUBE DAILY #0 tab 11/14/21 oxymetazoline [Nasal [place] (oxymetazoline)] 1 spray NASAL BID #0 ml 11/14/21 amlodipine 2.5 mg tablet 2.5 mg G-TUBE DAILY #90 tab 11/25/21 atorvastatin 80 mg tablet 80 mg PO QHS #90 tab 11/25/21 buspirone 7.5 mg tablet 7.5 mg PO TID #90 tab 11/25/21 carvedilol 25 mg tablet 25 mg PO BID #180 tab 11/25/21 clopidogrel 75 mg tablet 75 mg PO DAILY #90 tab 11/25/21 finasteride 5 mg tablet 5 mg PO DAILY #90 tab 11/25/21 fluoxetine 20 mg capsule 20 mg PO DAILY #90 cap 11/25/21 fluoxetine 40 mg capsule 40 mg PO DAILY #90 cap 11/25/21 furosemide 20 mg tablet 20 mg PO DAILY #90 tab 11/25/21 isosorbide mononitrate 30 mg tablet,extended release 24 hr 30 mg PO DAILY #90 tab 11/25/21 metoclopramide HCl 5 mg tablet 5 mg PO BID #30 tab 11/25/21 nitroglycerin 0.4 mg sublingual tablet 0.4 mg SL Q5M PRN #30 tab 11/25/21 pregabalin 75 mg capsule 75 mg PO BID #60 cap 11/25/21 trazodone 100 mg tablet 100 mg G-TUBE QHS #90 tab 11/25/21 gauze bandage 4 X 4 sponge #1 ea 11/27/21 pantoprazole 40 mg tablet,delayed release 40 mg PO DAILY #60 tab 11/27/21 sucralfate 100 mg/mL oral suspension 10 ml PO QAC #1000 ml 11/27/21 amoxicillin-pot clavulanate [Augmentin] 10 ml PO Q8H #150 ml 12/05/21 The patient's discharge medication list was reviewed for discrepancies and discrepancies were resolved.
== END 2021-12-05 16:17 | disposition home or self-care (01) | DRG 178 ==
LOC: ED 02:38 → PCU 03:59
PROVIDERS: Admitting Provider Hospitalist; Emergency Provider Emergency Medicine; PCP Internal Medicine; Visit Provider Internal Medicine
DX: J69.0 Pneumonitis due to inhalation of food and vomit (principal); I13.0 Hypertensive heart and chronic kidney disease with heart failure and stage 1 through stage 4 chronic kidney disease, or unspecified chronic kidney disease; E11.22 Type 2 diabetes mellitus with diabetic chronic kidney disease; E11.51 Type 2 diabetes mellitus with diabetic peripheral angiopathy without gangrene; I50.9 Heart failure, unspecified; E11.41 Type 2 diabetes mellitus with diabetic mononeuropathy; E11.43 Type 2 diabetes mellitus with diabetic autonomic (poly)neuropathy; Z79.4 Long term (current) use of insulin; E11.65 Type 2 diabetes mellitus with hyperglycemia; J47.9 Bronchiectasis, uncomplicated; N18.31 Chronic kidney disease, stage 3a; Z93.1 Gastrostomy status; K31.84 Gastroparesis; I25.10 Atherosclerotic heart disease of native coronary artery without angina pectoris; E78.5 Hyperlipidemia, unspecified; K21.9 Gastro-esophageal reflux disease without esophagitis; F32.9 Major depressive disorder, single episode, unspecified; G47.33 Obstructive sleep apnea (adult) (pediatric); F41.9 Anxiety disorder, unspecified; I25.2 Old myocardial infarction; R13.10 Dysphagia, unspecified; E66.9 Obesity, unspecified; Z99.81 Dependence on supplemental oxygen; Z79.02 Long term (current) use of antithrombotics/antiplatelets; Z79.899 Other long term (current) drug therapy; Z20.822 Contact with and (suspected) exposure to COVID-19; Z68.37 Body mass index [BMI] 37.0-37.9, adult
CPT/HCPCS: 36415; 71045; 80048; 80053; 82962; 83605; 85025; 85610; 85730; 87040; 87426; 92526; 92610; 93005; 94640; 97802; 99251; 99285; J7050; A4216; G0463; J0295

== ENCOUNTER 2022-01-09 15:28 | Outpatient (CLI) | payer MEDICARE, MEDICAID, SELFPAY ==
[2022-01-09 16:58] LABS: Absolute Lymphocyte Count 1.33 X10^3/uL (0.83-4.51); Absolute Neutrophil Count 6.1 X10^3/uL (2.0-7.7); Basophil# 0.05 X10^3/uL; Basophil% 0.6 % (0-1); Eosinophil# 0.21 X10^3/uL; Eosinophils% 2.5 % (0-5); Hematocrit 35.1 % (40-54); Hemoglobin 10.8 g/dL (13.0-16.5); Lymphocyte # 1.33 X10^3/ul (0.83-4.51); Lymphocyte % 15.9 % (19-41); Mean Corp Hgb Conc 30.8 g/dL (32-36); Mean Corpuscular Hgb 27.1 pg (27.0-32.0); Mean Corpuscular Volume 88.2 fL (80-94); Mean Platelet Vol. 12.3 fl (6.2-12.0); Monocyte# 0.63 X10^3/uL; Monocyte% 7.5 % (0-10); NRBC Flagged by Analyzer 0 % (0-5); Neutrophil # 6.13 X10^3/uL (2.7-7.7); Neutrophil % 73.3 % (47-70); Platelet Count 193 K/mm3 (150-450); RBC Distribution Width CV 14.5 % (11.6-14.6); RBC Distribution Width SD 46.5 fl (35.1-43.9); Red Blood Count 3.98 M/mm3 (4.6-6.2); White Blood Count 8.4 K/mm3 (4.4-11.0)
[2022-01-09 17:16] LABS: ALB/GLOB Ratio 0.8 RATIO (0.9-2.4); AST(SGOT) 18 U/L (15-37); Alanine Aminotransfer ALT/SGPT 26 U/L (16-61); Albumin, Serum 3.4 g/dL (3.2-5.0); Alkaline Phosphatase 109 U/L (45-117); Anion Gap 5 (5-15); BUN 33 mg/dL (7-18); BUN/Creat Ratio 27.3 RATIO (10-20); Calcium,Total 9.1 mg/dL (8.5-10.1); Chloride 102 mmol/L (98-107); Creatinine, Serum 1.21 mg/dL (0.70-1.30); EST Glomerular Filtration Rate 64 mL/min (>60); Est Glom Filt Rate - Afr Amer 78 mL/min (>60); Ferritin 67 ng/mL (26-388); Globulin 4.3 g/dL (2.2-4.2); Glucose 274 mg/dL (74-106); Iron 69 ug/dL (65-175); Iron Binding Capacity,Total 329 ug/dL (250-450); Phosphorus 3.3 mg/dL (2.5-4.9); Potassium 4.7 mmol/L (3.5-5.1); Protein, Total 7.7 g/dL (6.4-8.2); Sodium Level 138 mmol/L (136-145)
[2022-01-11 08:28] LABS: MG Sendout 2.1 mg/dL (1.6-2.3)
[2022-01-12 09:31] LABS: PTHIN 45.1 pg/mL (18.4-80.1)
== END 2022-01-09 23:59 | disposition home or self-care (01) ==
LOC: BIMLAB 15:29
PROVIDERS: PCP Internal Medicine; Referring Provider Internal Medicine Nephrology; Visit Provider Internal Medicine Nephrology
DX: N17.9 Acute kidney failure, unspecified (principal); E11.22 Type 2 diabetes mellitus with diabetic chronic kidney disease; N18.31 Chronic kidney disease, stage 3a; D63.8 Anemia in other chronic diseases classified elsewhere
CPT/HCPCS: 36415; 80053; 82728; 83540; 83550; 83735; 83970; 84100; 85025

== ENCOUNTER 2022-01-09 21:32 | Emergency (ER) | payer MEDICARE, MEDICAID, SELFPAY ==
[2022-01-09 21:33] VITALS: BP 201/97; PULSE 81; RESP 16; TEMP 36.3; O2SAT 93; BMI 25.1
--- NOTE | 2022-01-09 21:48 | EKG12_ITS ---
Test Reason : HTN Blood Pressure : / mmHG Vent. Rate : 073 BPM Atrial Rate : 087 BPM P-R Int : 248 ms QRS Dur : 092 ms QT Int : 406 ms P-R-T Axes : 085 018 042 degrees QTc Int : 447 ms Sinus bradycardia with 1st degree A-V block with Premature atrial complexes Confirmed by ROLAND JOHNS, FAUSTINA ([id number]), sound editor SHARAN DOE ([id number]) on 01/13/2022 7:01:30 AM Referred By: HARLEY Confirmed By:FAUSTINA WATKINS MD
[2022-01-09 22:24] VITALS: BP 192/91; PULSE 88
--- NOTE | 2022-01-09 22:30 | EX.ED.DYSGE1 ---
HPI History of Present Illness Chief Complaint: Hypertension Informant: patient and spouse/S.O. Narrative Narrative: Patient presents with elevated blood pressure at home. He states that sometimes he gets headaches but he is not having 1 now and these headaches do not necessarily go along with his high blood pressure. He states sometimes his blood pressure is low at home and that seems to cause more headaches than high. He checked his blood pressure at home and it was about 202. He was told that if it ever goes above 200 he needs to come to the emergency department. He is not having dyspnea or chest pain or any other symptoms. He is taking his meds. We reviewed his dosages of amlodipine, losartan and carvedilol. His crushes these in place of these through his PEG tube. He states he thinks his blood pressure is up for the last day or 2 because he is nervous about a procedure changing his PEG tube on Wednesday. He was seen in the office today and had blood pressures of about 180. Currently in the room he is about 173/84. Nothing seems to make his symptoms necessarily better. He thinks his anxiety makes it worse. 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 left eye Bronchiectasis with (acute) exacerbation Cardiology follow-up encounter Chronic cough Chronic respiratory failure with hypoxia COPD (chronic obstructive pulmonary disease) COPD (chronic obstructive pulmonary disease) CPAP (continuous positive airway pressure) dependence Depression Diabetes Essential hypertension Gastric reflux Gastroparesis GERD (gastroesophageal reflux disease) High cholesterol History of aspiration pneumonia History of echocardiogram History of edema History of heart attack History of non-ST elevation myocardial infarction (NSTEMI) (08/2016) History of pain when walking History of steroid therapy History of stress test Hypertension Insulin dependent diabetes mellitus Kidney stones Kidney stones Leg pain, right Migraines Mood disorder Non-smoker Non-smoker On home oxygen therapy On home oxygen therapy Peripheral vascular occlusive disease Pneumonia Prostate disease Pulmonary nodule, left Right ankle pain Shortness of breath on exertion Silent aspiration Sleep apnea Type 2 diabetes mellitus Vision loss of left eye Wears glasses Wound of left lower extremity Home Medications acetaminophen 1,000 mg PO QHS PRN PRN 03/16/21 [History Last Taken 09/01/21] insulin lispro See Protocol SQ TIDCM 02/11/21 [History Last Taken 10/01/21] clotrimazole 1 applic TOPICAL BID PRN 08/06/21 [History Last Taken 3 Days Ago ~09/29/21] nystatin [Nyamyc] 1 applic TOPICAL BID PRN 08/06/21 [History Last Taken 3 Days Ago ~09/29/21] aspirin 81 mg tablet,delayed release 81 mg PO DAILY 11/05/21 [History Last Taken Unknown] spironolactone 40 mg PO DAILY 11/08/21 [History Last Taken Unknown] Artificial Tears(dp-vifk-tryo) 2 drp EACH EYE Q1H PRN #0 ml 11/14/21 [Rx Last Taken Unknown] loratadine [Allergy Relief (loratadine)] 10 mg G-TUBE DAILY #0 tab 11/14/21 [Rx Last Taken Unknown] buspirone 7.5 mg tablet 7.5 mg PO TID #90 tab 11/25/21 [Rx Last Taken Unknown] isosorbide mononitrate 30 mg tablet,extended release 24 hr 30 mg PO DAILY #90 tab 11/25/21 [Rx Last Taken Unknown] metoclopramide HCl 5 mg tablet 5 mg PO BID #30 tab 11/25/21 [Rx Last Taken Unknown] nitroglycerin 0.4 mg sublingual tablet 0.4 mg SL Q5M PRN #30 tab 11/25/21 [Rx Last Taken Unknown] trazodone 100 mg tablet 100 mg G-TUBE QHS #90 tab 11/25/21 [Rx Last Taken Unknown] gauze bandage 4 X 4 sponge #1 ea 11/27/21 [Rx Last Taken Unknown] pantoprazole 40 mg tablet,delayed release 40 mg PO DAILY #60 tab 11/27/21 [Rx Last Taken Unknown] sucralfate 100 mg/mL oral suspension 10 ml PO QAC #1000 ml 11/27/21 [Rx Last Taken Unknown] losartan 25 mg tablet 25 mg PO DAILY #90 tab 12/08/21 [Rx Last Taken Unknown] albuterol sulfate 90 mcg/actuation aerosol inhaler 2 puff INHALATION Q4H PRN g 01/06/22 [History Last Taken Unknown] insulin detemir U-100 100 unit/mL (3 mL) subcutaneous pen 34 unit SUBCUT QHS ml 01/06/22 [History Last Taken Unknown] alprazolam 0.5 mg tablet 0.5 mg PO BID PRN #60 tab 01/09/22 [Rx Last Taken Unknown] amlodipine 2.5 mg tablet 2.5 mg G-TUBE DAILY #90 tab 01/09/22 [Rx Last Taken Unknown] atorvastatin 80 mg tablet 80 mg PO QHS #90 tab 01/09/22 [Rx Last Taken Unknown] carvedilol 25 mg tablet 25 mg PO BID #180 tab 01/09/22 [Rx Last Taken Unknown] clopidogrel 75 mg tablet 75 mg PO DAILY #90 tab 01/09/22 [Rx Last Taken Unknown] finasteride 5 mg tablet 5 mg PO DAILY #90 tab 01/09/22 [Rx Last Taken Unknown] fluoxetine 20 mg capsule 20 mg PO DAILY #90 cap 01/09/22 [Rx Last Taken Unknown] fluoxetine 40 mg capsule 40 mg PO DAILY #90 cap 01/09/22 [Rx Last Taken Unknown] furosemide 40 mg tablet 40 mg PO DAILY #90 tab 01/09/22 [Rx Last Taken Unknown] pregabalin 75 mg capsule 75 mg PO BID #60 cap 01/09/22 [Rx Last Taken Unknown] Allergy/AdvReac Type Severity Reaction Status Date / Time allopurinol AdvReac Vomiting Verified 01/09/22 21:35 Influenza Virus Vaccines AdvReac Vomiting Verified 01/09/22 21:35 pneumococcal vaccine AdvReac Vomiting Verified 01/09/22 21:35 Family History Mother Diabetes Heart disease CHF Father Heart disease [place]/CAD Myocardial infarction Surgical History H/O lithotripsy History of angioplasty of peripheral vessel (2016) History of angioplasty of peripheral vessel History of ankle surgery History of cardiac catheterization History of coronary artery stent placement (08/2016) History of coronary artery stent placement History of esophagogastroduodenoscopy (EGD) History of left heart catheterization (11/15/17) History of thyroid surgery Hx of lithotripsy Hx of surgery to heart and great vessels, presenting hazards to health Hx of surgical procedure Hx of thyroidectomy Hx of toe surgery Hx of toe surgery PEG (percutaneous endoscopic gastrostomy) status Social History household members: spouse housing: apartment Smoking Status: Never smoker alcohol intake: never substance use type: does not use ROS ROS ED Constitutional Constitutional ED: Denies chills or fever(s) Eyes Eyes: Denies blurry vision or change in vision ENT ENT ED: Denies rhinorrhea Cardiovascular Cardiovascular: Denies chest pain, palpitations or racing heartbeat Respiratory/Chest Respiratory/Chest: Denies cough or dyspnea Gastrointestinal Gastrointestinal: Denies diarrhea, nausea or vomiting Genitourinary Genitourinary ED: Denies dysuria Musculoskeletal Musculoskeletal: Denies myalgias Integumentary Denies rash Neurologic Neurologic: Reports headache(s); Denies paresthesias or weakness Psychiatric Psychiatric: Reports anxiety Endocrine Endocrinology: Reports other Details: Patient has a [employer] continuous glucose monitor and his blood sugars have been running anywhere between about 90 and 160. Occasionally he will have 1-200. ; Denies polydipsia or polyuria Allergic/Immunologic Allergic/Immunologic ED: Denies mouth swelling or urticaria EXAM Physical Exam Const Vital Signs: 01/09/22 21:33 01/09/22 21:41 01/09/22 22:24 Temperature 97.4 F L Temperature Source Temporal Pulse Rate 81 88 Respiratory Rate 16 Respiratory Pattern Normal Blood Pressure 201/97 H 192/91 H Blood Pressure Mean 131 124 Pulse Ox 93 Oxygen Delivery Method Room Air Positive well nourished, well developed and obese General Appearance ED: well developed and NAD; Negative for cyanotic or diaphoretic Nutritional Appearance: obese HEENT Reports moist mucous membranes Eyes General Eye ED: Negative for pale conjunctiva or scleral icterus Neck no JVD Chest Wall palpation of chest normal Resp normal respiratory effort and clear to auscultation bilaterally Auscultation: Negative for rales GI normal to inspection, nondistended, normoactive bowel sounds and non-tender GI Narrative: PEG tube is clean dry and intact. No tenderness. No sign of infection. Palpation: soft Back/Spine no CVA tenderness Extremity Extremity Narrative: Patient has some moderate edema which is reportedly chronic and unchanged General Extremety ED: Yes edema General Extremity: edema Neuro oriented x3 Sensorium / Orientation: alert Psych mental status grossly normal Skin no rashes or lesions noted MDM MDM MDM Narrative Medical decision making narrative: Patient already had blood work done earlier today. I reviewed this. There is no marked abnormalities. I looked at an echo from April this year. He had a good ejection fraction. I do not think his blood pressure requires acute treatment. He states normally his blood pressures been running 120s over 70s at home. I explained that if it is consistently up he does have room to increase his amlodipine or losartan. His carvedilol is already relatively maxed. I do not think we need to do further work-up at this time. EKG Initial EKG: Comments: EKG done as part of protocol read by me shows sinus rhythm with PACs. Overall rate of 73. No ventricular ectopy. No acute ST elevation or depression. [place] interval is long showing slight first-degree AV block. QRS duration and QTc are normal. Discharge Plan Triage Chief Complaint: Hypertension ED Provider: Hema Larsen Dx/Rx/DC Orders Clinical Impression: Essential hypertension Instructions: ED Hypertension, Established Prescriptions: No Action aspirin [Adult Aspirin Regimen] 81 mg tablet,delayed release (DR/EC) 81 mg PO DAILY RF: 0 insulin detemir U-100 100 unit/mL (3 mL) insulin pen 34 unit subcut QHS RF: 0 albuterol sulfate 90 mcg/actuation HFA aerosol inhaler 2 puff inhalation Q4H PRN (Reason: shortness of breath or wheezing) RF: 0 losartan 25 mg tablet 25 mg PO DAILY Qty: 90 RF: 2 alprazolam 0.5 mg tablet 0.5 mg PO BID PRN (Reason: anxiety) Qty: 60 RF: 0 atorvastatin 80 mg tablet 80 mg PO QHS Qty: 90 RF: 2 fluoxetine 20 mg capsule 20 mg PO DAILY Qty: 90 RF: 2 fluoxetine 40 mg capsule 40 mg PO DAILY Qty: 90 RF: 2 furosemide 40 mg tablet 40 mg PO DAILY Qty: 90 RF: 3 clopidogrel 75 mg tablet 75 mg PO DAILY Qty: 90 RF: 3 amlodipine [Norvasc] 2.5 mg tablet 2.5 mg G-tube DAILY Qty: 90 RF: 3 carvedilol 25 mg tablet 25 mg PO BID Qty: 180 RF: 3 finasteride 5 mg tablet 5 mg PO DAILY Qty: 90 RF: 3 pregabalin [Lyrica] 75 mg capsule 75 mg PO BID Qty: 60 RF: 1 acetaminophen 500 MG tablet 1,000 mg PO QHS PRN PRN (Reason: Pain 1-10 Or Fever) RF: 0 insulin lispro 100 UNIT/ML insulin pen See Protocol unit SQ TIDCM RF: 0 nystatin [Nyamyc] 100,000 unit/gram powder 1 applic topical BID PRN (Reason: Rash) RF: 0 clotrimazole 1 % cream 1 applic topical BID PRN (Reason: Rash) RF: 0 spironolactone 25 mg tablet 40 mg PO DAILY RF: 0 loratadine [Allergy Relief (loratadine)] 10 mg Tablet 10 mg G-tube DAILY Qty: 0 RF: 0 Artificial Tears(ip-grej-cwyk) 1-0.2-0.2 % Drops 2 drp EACH EYE Q1H PRN (Reason: DRY EYES) Qty: 0 RF: 0 buspirone 7.5 mg tablet 7.5 mg PO TID Qty: 90 RF: 0 isosorbide mononitrate 30 mg tablet extended release 24 hr 30 mg PO DAILY Qty: 90 RF: 0 metoclopramide HCl [Reglan] 5 mg tablet 5 mg PO BID Qty: 30 RF: 0 nitroglycerin 0.4 mg tablet, sublingual 0.4 mg SL Q5M PRN (Reason: Chest Pain) Qty: 30 RF: 0 trazodone 100 mg tablet 100 mg G-tube QHS Qty: 90 RF: 0 pantoprazole [Protonix] 40 mg tablet,delayed release (DR/EC) 40 mg PO DAILY Qty: 60 RF: 3 sucralfate 100 mg/mL suspension 10 ml PO QAC Qty: 1000 RF: 0 (DME) Curity Gauze 4 X 4 sponge See Rx Instructions .ROUTE .MEDSUPPLY Qty: 1 RF: 0 Primary Care Provider: Doretha Brown Referrals: Doretha Brown MD [Primary Care Provider] - 3-5 Days Disposition Disposition: Home, Self Care
[2022-01-09 22:38] VITALS: BP 187/78
== END 2022-01-09 22:39 | disposition home or self-care (01) ==
PROVIDERS: Emergency Provider Emergency Medicine; PCP Internal Medicine; Visit Provider Emergency Medicine
DX: I12.9 Hypertensive chronic kidney disease with stage 1 through stage 4 chronic kidney disease, or unspecified chronic kidney disease (principal); E11.51 Type 2 diabetes mellitus with diabetic peripheral angiopathy without gangrene; Z93.1 Gastrostomy status; J44.9 Chronic obstructive pulmonary disease, unspecified; E11.43 Type 2 diabetes mellitus with diabetic autonomic (poly)neuropathy; E11.22 Type 2 diabetes mellitus with diabetic chronic kidney disease; Z79.4 Long term (current) use of insulin; N18.31 Chronic kidney disease, stage 3a; I25.10 Atherosclerotic heart disease of native coronary artery without angina pectoris; E78.00 Pure hypercholesterolemia, unspecified; M10.9 Gout, unspecified; Z87.01 Personal history of pneumonia (recurrent); F32.A Depression, unspecified; F41.9 Anxiety disorder, unspecified; M19.90 Unspecified osteoarthritis, unspecified site; K21.9 Gastro-esophageal reflux disease without esophagitis; I25.2 Old myocardial infarction; Z87.442 Personal history of urinary calculi; G43.909 Migraine, unspecified, not intractable, without status migrainosus; Z99.81 Dependence on supplemental oxygen; G47.30 Sleep apnea, unspecified; Z79.82 Long term (current) use of aspirin; Z79.899 Other long term (current) drug therapy; Z79.02 Long term (current) use of antithrombotics/antiplatelets; Z95.5 Presence of coronary angioplasty implant and graft; E66.9 Obesity, unspecified; I44.0 Atrioventricular block, first degree; I49.1 Atrial premature depolarization; Z68.25 Body mass index [BMI] 25.0-25.9, adult; K31.84 Gastroparesis; D63.8 Anemia in other chronic diseases classified elsewhere
CPT/HCPCS: 36415; 80053; 82728; 83540; 83550; 83735; 83970; 84100; 85025; 93005; 99282; A4216

== ENCOUNTER 2022-01-12 10:08 | Day surgery (SDC) | payer MEDICARE, MEDICAID, SELFPAY ==
--- NOTE | 2022-01-12 | EGD_PTH ---
PATIENT: REA HANNA LOC: EN U#:[id number] AGE/SX: 61/M ROOM: RE01/12/[address]: Dr. Arjun Rodriguez DO : 1960 BED: DIS: 01/12/2022 SPEC #: [id number] RECD: 01/12/22 13:14 STATUS: MOISÉS SENIA #: [id number] MARJORIE: 01/12/22 00:[address]: Arjun Rodriguez DEPT: SURGICAL PATHOLOGY RECD BY: Charles Rosado ENTERED: 01/12/22 13:14 SP TYPE: EGD BIOPSY OT DR: Dr. Doretha Brown MD Tissues: Gastric mucous membrane Procedures: Surgery Specimen Level IV HEADER OPERATION: EGD (MAC) with PEG exchange PRE-OP DIAGNOSIS: Aspiration pneumonia TISSUE SUBMITTED: Intragastric stoma site MICROSCOPIC DIAGNOSIS Intragastric stoma site, biopsy: Fragments of gastric mucosa with granulation tissue reaction. SJ:guillermo 01/13/2022 MICROSCOPIC DESCRIPTION Slides are reviewed. GROSS DESCRIPTION Received in fixative is one container labeled with the patient's name and designated intragastric stoma site. The specimen consists of multiple irregular fragments of light keenan soft tissue that in aggregate measure 1 x 0.5 x 0.1 cm. The specimen is totally submitted in one cassette. / HARSHAL:guillermo 01/12/2022 TC:5 CPT: 84757
--- NOTE | 2022-01-12 10:28 | PCM.HP.BLA ---
History and Physical Date of Admission: 01/12/22 61 M who presents to the office today for Last visit 11.11.21 for aspiration pneumonia and gastroparesis while [facility] inpatient with gastroparesis contributing to aspiration pneumonia. Presented to [facility] ED 11.08.21 for evaluation of SOB with noted hypoxia and respiratory distress. 11.11.21 plan as follows Aspiration pneumonia ? Surgically or endoscopically placed GJ tube or J-tube would help aspiration pneumonia where surgical or percutaneous gastric tube may actually worsen condition particularly in the place of a hiatal hernia. Recommend placement during hospitalization. Gastroparesis ? secondary to medication, obstructive sleep apnea, COPD and diabetes mellitus. Recommend Reglan 5mg Q6H routine and protonix 40mg BID to prevent gastric acid regurgitation into lungs. EGD performed 11.12.21. EGD ? gastritis. Gastroparesis secondary to DMII. Externally removable PEG-J placed successfully. He was discharged from [facility] 11.14.21 following treatment for recurrent pneumonia, bronchoiectasis, DMII without complications or neuropathy, Class III obesity with BMI 40.3, CAD, diabetic polyneuropathy, chronic CHF with preserved ejection fraction, obstructive sleep apnea, depression with anxiety, GERD, BPH, HTN, DVT prophylaxis. Medications ? reglan, protonix Presented to [facility] ED 12.04.21 for evaluation of concerns with aspiration with increasing dyspnea. Admitted for management of chronic respiratory failure with hypoxia, anxiety and depression, weakness, lower extremity neuropathy, unspecified mononeuropathy of lower limb. Feels he is incredibly thirsty because of his fluid restriction/PEG placement. Feels he is doing OK with enteral feed formula. Reporting one episode of diarrhea recently. ROS Const Constitutional: Positive for weakness Eyes Eyes: Positive for vision loss ENT ENT: Positive for nasal congestion Resp Respiratory: Positive for cough and wheezing Cardio Cardiology: Positive for leg pain with exertion Gastro GI: Positive for change in bowel habits Musc Musculoskeletal: Positive for abnormal gait, numbness, tingling, Arthritis, leg pain at night and leg pain with exertion Neuro Neurology: Positive for abnormal gait, weakness, numbness and tingling Psych Psychiatric: Positive for anxiety and Positive for depression Aller/Imm Allergy/Immunologic: Positive for wheezing Exam Const General: cooperative and comfortable Nutritional Appearance: average body habitus and well nourished HENMT Head: normal to inspection Ears: hearing grossly normal bilaterally Nose: external nose normal Face and sinus: normal facial exam Mouth: oral mucosae normal Throat: posterior oropharynx normal Eyes General: appearance normal, both eyes and all related structures Neck Neck: normal visual inspection Chest Chest palpation & inspection: normal inspection of the chest and normal palpation of entire chest wall Resp Effort & Inspection: normal respiratory effort Auscultation: Bilateral: Clear to Auscultation Cardio Palpation: normal PMI Rate: regular rate Rhythm: regular rhythm GI Inspection: normal to inspection Auscultation: normal bowel sounds Percussion: normal to percussion Palpation: no hepatosplenomegaly Skin General: no rashes or lesions noted Neuro General: patient alert Extrem General: normal to inspection Psych Affect: normal affect Quality Reporting Tobacco Screening ([facility] 138) Smoking Status: Never smoker Assessment and Plan Assessment and Plan (1) Aspiration pneumonia: Status: Chronic Qualifiers: Aspiration pneumonia type: due to gastric secretions Plan - Dr. Díaz Friend, DO: Patient is very upset that he was told that he cannot eat anymore. We went over the risk and benefits to him consuming any liquids or food substances and he says that he wants to eat regardless of his risk of aspiration pneumonia. I told him that I believe that he may be even aspirating on his own secretions. I had wanted to give him something to dry up his secretions however he did not want to try anything to dry up the secretions because he thinks will come his appetite. He is comfortable with the risks that may happen with him eating and he says that no one can stop. I said that if he is going to try to eat anything please only use ice cream or other soft liquidy substances that can dissolve mostly in his mouth. He does not want his PEG changed to a Luigi low-profile PEG. So we will place that an endoscopy and remove his current PEG tube. He will follow-up in 1 month. I have re-examined the patient. There are no clinical changes since date of exam.
[2022-01-12 11:00] LABS: Bedside Glucose 177 mg/dL (70-110)
[2022-01-12 11:18] VITALS: BP 177/63; PULSE 84; RESP 20; TEMP 36.7; O2SAT 98; BMI 39.5
[2022-01-12] MEDS: Lactated Ringers 1,000 ML 15 ML IV (11:28)
[2022-01-12 12:25] VITALS: BP 126/90; BP 177/63; PULSE 69; RESP 16; TEMP 36.4; O2SAT 99
--- NOTE | 2022-01-12 12:28 | OP.EGD_ITS ---
Patient Name: Raheem Linda Procedure Date: 01/12/2022 11:51 AM Date of : 1960 Age: 61 Procedure: Upper GI endoscopy Indications: Epigastric abdominal pain, Failure to respond to medical treatment Providers: Arjun Rodriguez DO Medicines: See the Anesthesia note for documentation of the administered medications Patient Profile: This is a 61 year old male. Refer to note in patient chart for documentation of history and physical. Patient has symptoms of acute epigastric abdominal pain and acute nausea. He is status post EGD for PEG placement. Complications: No immediate complications. Procedure: Pre-Anesthesia Assessment: - Prior to the procedure, a History and Physical was performed, and patient medications and allergies were reviewed. The risks and benefits of the procedure and the sedation options and risks were discussed with the patient. All questions were answered and informed consent was obtained. Patient identification and proposed procedure were verified by the physician in the pre-procedure area. Mental Status Examination: alert and oriented. Airway Examination: normal oropharyngeal airway and neck mobility. Respiratory Examination: clear to auscultation. CV Examination: normal. Prophylactic Antibiotics: The patient does not require prophylactic antibiotics. Prior Anticoagulants: The patient has taken no previous anticoagulant or antiplatelet agents. After reviewing the risks and benefits, the patient was deemed in satisfactory condition to undergo the procedure. The anesthesia plan was to use moderate sedation / analgesia (conscious sedation). Immediately prior to administration of medications, the patient was re-assessed for adequacy to receive sedatives. The heart rate, respiratory rate, oxygen saturations, blood pressure, adequacy of pulmonary ventilation, and response to care were monitored throughout the procedure. The physical status of the patient was re-assessed after the procedure. After obtaining informed consent, the endoscope was passed under direct vision. Throughout the procedure, the patient's blood pressure, pulse, and oxygen saturations were monitored continuously. The gastroscope was introduced through the mouth, and advanced to the second part of duodenum. The upper GI endoscopy was accomplished without difficulty. The patient tolerated the procedure well. Moderate Sedation: Moderate (conscious) sedation was administered by the endoscopy nurse and supervised by the endoscopist. The following parameters were monitored: oxygen saturation, heart rate, blood pressure, and response to care. Total physician intraservice time was 15 minutes. Scope In: 12:06:24 PM Scope Out: 12:18:26 PM Total Procedure Duration Time 0 hours 12 minutes 2 seconds Findings: The examined esophagus was normal. There was evidence of an eroding gastrostomy tube present on the greater curvature of the stomach. This was characterized by erythema, friable mucosa and ulceration. Biopsies were taken with a cold forceps for histology. Verification of patient identification for the specimen was done. The PEG required removal because it was embedded. The PEG was cut externally, grasped, and removed with the scope. Removal was easily accomplished. An endoscopically removable 24 Fr Bard gastrostomy tube was lubricated. The guide wire was passed through the existing G-tube port and snared endoscopically. The endoscope and snare were then removed, pulling the wire out through the mouth. The g-tube was passed over the guidewire through the mouth, into the stomach and out through the G-tube port. The bumper was attached to the gastrostomy tube. The feeding tube was then cut to an appropriate length. The final position of the gastrostomy tube was confirmed by relook endoscopy, and skin marking noted to be 4 cm at the external bumper. The final tension and compression of the abdominal wall by the PEG tube and external bumper were checked. The tube was capped, and the tube site was cleaned and dressed. Placement of an externally removable PEG with no T-fasteners was successfully completed. The external bumper was at the 4.0 cm marking on the tube. Estimated blood loss was minimal. Impression: - Normal esophagus. - Eroding gastrostomy tube present characterized by ulceration, erythema and friable mucosa. Biopsied. - Normal second portion of the duodenum. Biopsied. - The PEG was removed because it was embedded, and replaced with an endoscopically removable PEG. - An externally removable PEG placement was successfully completed. Recommendation: - Await pathology results. - Await pathology results. - No repeat upper endoscopy. - Return to GI office. - Continue present medications. Procedure Code(s): --- Professional --- 80048, Esophagogastroduodenoscopy, flexible, transoral; with directed placement of percutaneous gastrostomy tube 78599, Esophagogastroduodenoscopy, flexible, transoral; with biopsy, single or multiple 76842, 59, Moderate sedation services provided by the same physician or other qualified health lawn care worker performing the diagnostic or therapeutic service that the sedation supports, requiring the presence of an independent trained observer to assist in the monitoring of the patient's level of consciousness and physiological status; initial 15 minutes of intraservice time, patient age 5 years or older CPT copyright 2017 [employer]. All rights reserved. The codes documented in this report are preliminary and upon slicing machine tender review may be revised to meet current compliance requirements. Arjun Rodriguez DO 01/12/2022 12:27:55 PM This report has been signed electronically. Number of Addenda: 1 Note Initiated On: 01/12/2022 11:51 AM Addendum Number: 1 Addendum Date: 08/17/2022 6:49:37 AM MAC was used for sedation during this procedure. Arjun Rodriguez DO 08/17/2022 6:49:41 AM This report has been signed electronically.
--- NOTE | 2022-01-12 12:29 | OP.CCLET_ITS ---
08/17/2022 Doretha Brown MD [address] [place] [address] [place] [address] Re : Upper GI endoscopy procedure for Raheem Linda Dear Dr. Brown This procedure was performed on Wednesday, January 12, 2022. My impressions and recommendations are as follows: Impressions : - Normal esophagus. - Eroding gastrostomy tube present characterized by ulceration, erythema and friable mucosa. Biopsied. - Normal second portion of the duodenum. Biopsied. - The PEG was removed because it was embedded, and replaced with an endoscopically removable PEG. - An externally removable PEG placement was successfully completed. Recommendations : - Await pathology results. - Await pathology results. - No repeat upper endoscopy. - Return to GI office. - Continue present medications. My findings are described in the full procedure note, which is enclosed. If I can be of further assistance, please feel free to contact me at . Sincerely, Arjun Rodriguez, 01/12/2022 12:27:55 PM This report has been signed electronically.
[2022-01-12 12:30] VITALS: BP 138/82; BP 177/63; PULSE 72; RESP 16; O2SAT 98
[2022-01-12 12:35] VITALS: BP 145/97; BP 177/63; PULSE 72; RESP 16; O2SAT 99
[2022-01-12 12:40] VITALS: BP 164/63; BP 177/63; PULSE 72; RESP 16; TEMP 36.6; O2SAT 99
[2022-01-12 13:00] VITALS: BP 177/63
--- NOTE | 2022-01-12 13:32 | SUR.PHASEII ---
Patient and voiced concern with new peg tube site and wanting to speak with Nutrition Services. This nurse spoke with inpatient dietitian and will be down to speak with patient and regarding their concerns.
== END 2022-01-12 23:59 | disposition home or self-care (01) ==
LOC: EN 10:09 → AC 10:10
PROVIDERS: PCP Internal Medicine; Referring Provider Internal Medicine Gastroenterology; Visit Provider Internal Medicine Gastroenterology
PROC: 0DJ08ZZ Inspection of Upper Intestinal Tract, Via Natural or Artificial Opening Endoscopic (ICD-10-PCS; CPT 43235; principal; 2022-01-12 11:10)
DX: Z43.1 Encounter for attention to gastrostomy (principal); E11.51 Type 2 diabetes mellitus with diabetic peripheral angiopathy without gangrene; J69.0 Pneumonitis due to inhalation of food and vomit; J44.9 Chronic obstructive pulmonary disease, unspecified; I11.0 Hypertensive heart disease with heart failure; I50.30 Unspecified diastolic (congestive) heart failure; E11.43 Type 2 diabetes mellitus with diabetic autonomic (poly)neuropathy; Z79.4 Long term (current) use of insulin; I25.10 Atherosclerotic heart disease of native coronary artery without angina pectoris; K21.9 Gastro-esophageal reflux disease without esophagitis; K31.84 Gastroparesis; Z95.5 Presence of coronary angioplasty implant and graft; G47.30 Sleep apnea, unspecified; F41.9 Anxiety disorder, unspecified; M19.90 Unspecified osteoarthritis, unspecified site; F32.A Depression, unspecified; E78.00 Pure hypercholesterolemia, unspecified; I25.2 Old myocardial infarction; Z87.442 Personal history of urinary calculi; Z99.81 Dependence on supplemental oxygen; Z79.899 Other long term (current) drug therapy
CPT/HCPCS: 43246; 43239; 74018; 82962; 87426; 88305; 99282; C9803; J7120; A4216; J2405

== ENCOUNTER 2022-01-12 22:55 | Emergency (ER) | payer MEDICARE, MEDICAID, SELFPAY ==
[2022-01-12 22:56] VITALS: BP 203/111; PULSE 86; RESP 16; TEMP 36.2; O2SAT 96; BMI 39.4
--- NOTE | 2022-01-12 23:14 | EX.ED.DYSGE1 ---
HPI History of Present Illness Chief Complaint: Abd Pain Informant: patient and spouse/S.O. Narrative Narrative: Patient has a history of recurrent aspiration and gets feeding through the PEG tube. He had his tube replaced today, and tonight he accidentally pulled it out. He is not having any symptoms right now. This occurred about 20 minutes prior to arrival. Recent procedure note states that the old PEG tube was embedded, so it was replaced with an externally removable PEG. 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 Bronchiectasis with (acute) exacerbation Cardiology follow-up encounter Chronic cough Chronic respiratory failure with hypoxia COPD (chronic obstructive pulmonary disease) COPD (chronic obstructive pulmonary disease) CPAP (continuous positive airway pressure) dependence Depression Diabetes Essential hypertension Gastric reflux Gastroparesis GERD (gastroesophageal reflux disease) High cholesterol History of aspiration pneumonia History of echocardiogram History of edema History of heart attack History of non-ST elevation myocardial infarction (NSTEMI) (08/2016) History of pain when walking History of steroid therapy History of stress test Hypertension Insulin dependent diabetes mellitus Kidney stones Kidney stones Leg pain, right Migraines Mood disorder Non-smoker Non-smoker On home oxygen therapy On home oxygen therapy Peripheral vascular occlusive disease Pneumonia Prostate disease Pulmonary nodule, left Right ankle pain Shortness of breath on exertion Silent aspiration Sleep apnea Type 2 diabetes mellitus Vision loss of left eye Wears glasses Wound of left lower extremity Home Medications acetaminophen 1,000 mg PO QHS PRN PRN 02/11/21 [History Last Taken 09/01/21] insulin lispro See Protocol SQ TIDCM 02/11/21 [History Last Taken 10/01/21] clotrimazole 1 applic TOPICAL BID PRN 08/06/21 [History Last Taken 3 Days Ago ~09/29/21] nystatin [[facility]] 1 applic TOPICAL BID PRN 08/06/21 [History Last Taken 3 Days Ago ~09/29/21] aspirin 81 mg tablet,delayed release 81 mg PO DAILY 11/05/21 [History Last Taken 01/09/22] spironolactone 40 mg PO DAILY 11/08/21 [History Last Taken Unknown] Artificial Tears([id number]) 2 drp EACH EYE Q1H PRN #0 ml 11/14/21 [Rx Last Taken Unknown] loratadine [Allergy Relief (loratadine)] 10 mg G-TUBE DAILY #0 tab 11/14/21 [Rx Last Taken Unknown] buspirone 7.5 mg tablet 7.5 mg PO TID #90 tab 11/25/21 [Rx Last Taken Unknown] isosorbide mononitrate 30 mg tablet,extended release 24 hr 30 mg PO DAILY #90 tab 11/25/21 [Rx Last Taken 01/12/22 08:00] metoclopramide HCl 5 mg tablet 5 mg PO BID #30 tab 11/25/21 [Rx Last Taken Unknown] nitroglycerin 0.4 mg sublingual tablet 0.4 mg SL Q5M PRN #30 tab 11/25/21 [Rx Last Taken Unknown] trazodone 100 mg tablet 100 mg G-TUBE QHS #90 tab 11/25/21 [Rx Last Taken Unknown] gauze bandage 4 X 4 sponge #1 ea 11/27/21 [Rx Last Taken Unknown] pantoprazole 40 mg tablet,delayed release 40 mg PO DAILY #60 tab 11/27/21 [Rx Last Taken Unknown] sucralfate 100 mg/mL oral suspension 10 ml PO QAC #1000 ml 11/27/21 [Rx Last Taken Unknown] losartan 25 mg tablet 25 mg PO DAILY #90 tab 12/08/21 [Rx Last Taken Unknown] albuterol sulfate 90 mcg/actuation aerosol inhaler 2 puff INHALATION Q4H PRN g 01/06/22 [History Last Taken Unknown] insulin detemir U-100 100 unit/mL (3 mL) subcutaneous pen 34 unit SUBCUT QHS ml 01/06/22 [History Last Taken Unknown] alprazolam 0.5 mg tablet 0.5 mg PO BID PRN #60 tab 01/09/22 [Rx Last Taken Unknown] amlodipine 2.5 mg tablet 2.5 mg G-TUBE DAILY #90 tab 01/09/22 [Rx Last Taken 01/12/22 08:00] atorvastatin 80 mg tablet 80 mg PO QHS #90 tab 01/09/22 [Rx Last Taken Unknown] carvedilol 25 mg tablet 25 mg PO BID #180 tab 01/09/22 [Rx Last Taken 01/12/22 08:00] clopidogrel 75 mg tablet 75 mg PO DAILY #90 tab 01/09/22 [Rx Last Taken 01/09/22] finasteride 5 mg tablet 5 mg PO DAILY #90 tab 01/09/22 [Rx Last Taken Unknown] fluoxetine 20 mg capsule 20 mg PO DAILY #90 cap 01/09/22 [Rx Last Taken Unknown] fluoxetine 40 mg capsule 40 mg PO DAILY #90 cap 01/09/22 [Rx Last Taken Unknown] furosemide 40 mg tablet 40 mg PO DAILY #90 tab 01/09/22 [Rx Last Taken Unknown] pregabalin 75 mg capsule 75 mg PO BID #60 cap 01/09/22 [Rx Last Taken 01/12/22 08:00] Allergy/AdvReac Type Severity Reaction Status Date / Time allopurinol AdvReac Vomiting Verified 01/12/22 22:56 Influenza Virus Vaccines AdvReac Vomiting Verified 01/12/22 22:56 pneumococcal vaccine AdvReac Vomiting Verified 01/12/22 22:56 Family History Mother Diabetes Heart disease CHF Father Heart disease MO/CAD Myocardial infarction Surgical History H/O lithotripsy History of angioplasty of peripheral vessel (2016) History of angioplasty of peripheral vessel History of ankle surgery History of cardiac catheterization History of coronary artery stent placement (08/2016) History of coronary artery stent placement History of esophagogastroduodenoscopy (EGD) History of left heart catheterization (11/15/17) History of thyroid surgery Hx of lithotripsy Hx of surgery to heart and great vessels, presenting hazards to health Hx of surgical procedure Hx of thyroidectomy Hx of toe surgery Hx of toe surgery PEG (percutaneous endoscopic gastrostomy) status Social History household members: spouse housing: apartment Smoking Status: Never smoker alcohol intake: never substance use type: does not use ROS ROS ED Constitutional Constitutional ED: Denies chills or fever(s) Eyes Eyes: Denies change in vision or diplopia ENT ENT ED: Denies rhinorrhea or sore throat Cardiovascular Cardiovascular: Denies chest pain or palpitations Respiratory/Chest Respiratory/Chest: Denies cough or dyspnea Gastrointestinal Gastrointestinal: Denies abdominal pain, diarrhea, nausea or vomiting Genitourinary Genitourinary ED: Denies dysuria or hematuria Musculoskeletal Musculoskeletal: Denies back pain or neck pain Integumentary Denies abscess or rash Neurologic Neurologic: Denies headache(s), paresthesias or weakness Psychiatric Psychiatric: Denies anxiety or suicidal thoughts EXAM Physical Exam Const Vital Signs: 01/12/22 22:56 Temperature 97.2 F L Temperature Source Temporal Pulse Rate 86 Respiratory Rate 16 Blood Pressure 203/111 H Blood Pressure Mean 141 Pulse Ox 96 Oxygen Delivery Method Nasal Cannula Oxygen Flow Rate (L/min) 3.5 Positive well nourished and well developed General Appearance ED: well developed and NAD Eyes PERRL and EOMs intact bilaterally Neck full ROM and supple Resp normal respiratory effort GI non-tender and non-distended Auscultation: normoactive bowel sounds Palpation: soft Neuro oriented x3, CN's II-XII intact bilaterally and no sensory deficits noted Sensorium / Orientation: awake and alert Motor Exam: strength 5/5 throughout Skin no rashes or lesions noted and no wounds MDM MDM MDM Narrative Medical decision making narrative: Given that the patient had the tube just placed today, before placing a new one I attempted to discuss with the proceduralist who placed it, Dr. Rodriguez. However we were not able to reach him prior to this dictation. Therefore in order to prevent the site from closing up, I placed the tube back into the site, after reviewing the procedure note and discussing with the patient and spouse, and confirming that the new tube is in the exact same site that the old tube was in, making it much more likely that the tract was well-established and that the stomach was less likely away from the abdominal wall. KUB confirmed good placement, the tube was flushed and he was discharged in stable condition. Procedures Other Procedures Procedure(s): G-tube placement: After confirming that the patient's Luigi tube balloon was competent and held water without leaking, it was replaced into the PEG site with minimal discomfort, inflated the balloon, there is no stomach contents to withdrawal. It flushed easily with water and later with Gastrografin. Confirm placement with 1 view KUB which on my interpretation shows Gastrografin within the lumen of the stomach and the duodenum. Tolerated well no complications. Discharge Plan Triage Chief Complaint: Abd Pain ED Provider: Bryan Shields Dx/Rx/DC Orders Clinical Impression: Dislodged gastrostomy tube Instructions: ED Feeding Tube Replacement Prescriptions: No Action aspirin [Adult Aspirin Regimen] 81 mg tablet,delayed release (DR/EC) 81 mg PO DAILY RF: 0 insulin detemir U-100 100 unit/mL (3 mL) insulin pen 34 unit subcut QHS RF: 0 albuterol sulfate 90 mcg/actuation HFA aerosol inhaler 2 puff inhalation Q4H PRN (Reason: shortness of breath or wheezing) RF: 0 losartan 25 mg tablet 25 mg PO DAILY Qty: 90 RF: 2 alprazolam 0.5 mg tablet 0.5 mg PO BID PRN (Reason: anxiety) Qty: 60 RF: 0 atorvastatin 80 mg tablet 80 mg PO QHS Qty: 90 RF: 2 fluoxetine 20 mg capsule 20 mg PO DAILY Qty: 90 RF: 2 fluoxetine 40 mg capsule 40 mg PO DAILY Qty: 90 RF: 2 furosemide 40 mg tablet 40 mg PO DAILY Qty: 90 RF: 3 clopidogrel 75 mg tablet 75 mg PO DAILY Qty: 90 RF: 3 amlodipine [Norvasc] 2.5 mg tablet 2.5 mg G-tube DAILY Qty: 90 RF: 3 carvedilol 25 mg tablet 25 mg PO BID Qty: 180 RF: 3 finasteride 5 mg tablet 5 mg PO DAILY Qty: 90 RF: 3 pregabalin [Lyrica] 75 mg capsule 75 mg PO BID Qty: 60 RF: 1 acetaminophen 500 MG tablet 1,000 mg PO QHS PRN PRN (Reason: Pain 1-10 Or Fever) RF: 0 insulin lispro 100 UNIT/ML insulin pen See Protocol unit SQ TIDCM RF: 0 nystatin [Nyamyc] 100,000 unit/gram powder 1 applic topical BID PRN (Reason: Rash) RF: 0 clotrimazole 1 % cream 1 applic topical BID PRN (Reason: Rash) RF: 0 spironolactone 25 mg tablet 40 mg PO DAILY RF: 0 loratadine [Allergy Relief (loratadine)] 10 mg Tablet 10 mg G-tube DAILY Qty: 0 RF: 0 Artificial Tears([id number]) 1-0.2-0.2 % Drops 2 drp EACH EYE Q1H PRN (Reason: DRY EYES) Qty: 0 RF: 0 buspirone 7.5 mg tablet 7.5 mg PO TID Qty: 90 RF: 0 isosorbide mononitrate 30 mg tablet extended release 24 hr 30 mg PO DAILY Qty: 90 RF: 0 metoclopramide HCl [Reglan] 5 mg tablet 5 mg PO BID Qty: 30 RF: 0 nitroglycerin 0.4 mg tablet, sublingual 0.4 mg SL Q5M PRN (Reason: Chest Pain) Qty: 30 RF: 0 trazodone 100 mg tablet 100 mg G-tube QHS Qty: 90 RF: 0 pantoprazole [Protonix] 40 mg tablet,delayed release (DR/EC) 40 mg PO DAILY Qty: 60 RF: 3 sucralfate 100 mg/mL suspension 10 ml PO QAC Qty: 1000 RF: 0 (DME) Curity Gauze 4 X 4 sponge See Rx Instructions .ROUTE .MEDSUPPLY Qty: 1 RF: 0 Primary Care Provider: Doretha Brown Referrals: Doretha Brown MD [Primary Care Provider] - Arjun Rodriguez DO [STAFF PHYSICIAN] - As Needed (if any issues, or may return to ER) Disposition Disposition: Home, Self Care
--- NOTE | 2022-01-12 23:34 | RAD_ITS ---
STUDY: X-RAY - ABDOMEN/PELVIS REASON FOR EXAM: Male, 61 years old patient with recent gastrostomy tube placement. TECHNIQUE: Single AP view of the abdomen / pelvis obtained with gastrografin. COMPARISON: None. FINDINGS: There appears to be moderate elevation of the right hemidiaphragm. The left lung base appears to be clear. There is an unremarkable bowel gas pattern. Enteric contrast opacifies the stomach and proximal small bowel. There is no obvious organomegaly, mass, dilated bowel or pathologic calcifications. Normal soft tissue structures. There are diffuse degenerative changes of the visualized spine. RAD/Abdomen Single View IMPRESSION: The tip of the gastrostomy tube appears to be intraluminal without evidence for extravasation of contrast. Electronically Signed: Ela Ozuna MD at 0:16 EST ,
[2022-01-12 23:57] VITALS: BP 191/80; PULSE 78; RESP 15; O2SAT 99
== END 2022-01-13 00:16 | disposition home or self-care (01) ==
PROVIDERS: Emergency Provider Emergency Medicine; PCP Internal Medicine; Visit Provider Emergency Medicine
DX: K94.23 Gastrostomy malfunction (principal); E11.51 Type 2 diabetes mellitus with diabetic peripheral angiopathy without gangrene; J44.9 Chronic obstructive pulmonary disease, unspecified; E11.43 Type 2 diabetes mellitus with diabetic autonomic (poly)neuropathy; Z79.4 Long term (current) use of insulin; I10 Essential (primary) hypertension; E78.00 Pure hypercholesterolemia, unspecified; I25.10 Atherosclerotic heart disease of native coronary artery without angina pectoris; K31.84 Gastroparesis; M10.9 Gout, unspecified; F41.9 Anxiety disorder, unspecified; M19.90 Unspecified osteoarthritis, unspecified site; Z87.01 Personal history of pneumonia (recurrent); F32.A Depression, unspecified; K21.9 Gastro-esophageal reflux disease without esophagitis; I25.2 Old myocardial infarction; Z87.442 Personal history of urinary calculi; Z99.81 Dependence on supplemental oxygen; G47.30 Sleep apnea, unspecified; Z79.82 Long term (current) use of aspirin; Z79.899 Other long term (current) drug therapy
CPT/HCPCS: 74018; A4216

== ENCOUNTER 2022-01-13 15:20 | Outpatient (RCR) | payer MEDICARE, MEDICAID, SELFPAY ==
--- NOTE | 2022-01-13 16:35 | NT.THERAPY_ITS ---
Medical Nutrition Therapy - History Nutrition Services has been consulted to:: Manage enteral nutrition, Conduct nutrition education Current diet/nutrition support order:: pureed/thin liquids PO. 6 cartons of Vital AF 1.2 via g-tube per day, which provides 1706 calories, 106.65 g protein, and 1153mL fluid/day (runs via pump at 90mL/hour during the day until it runs out per pt) - Anthropometric Measurements Height:: 5 ft 10 in Weight:: 125 kg - [place] body wt 75kg Body Mass Index (BMI):: 39.5 - Assessment Food and Nutrient Intake: Home visit w/ pt and significant other, Gabriela. Pt had PEG-J placed 11/[address] Rodriguez which was removed yesterday 01/12 and replaced w/ PEG. Pt accidently removed PEG yesterday at home and had PEG replaced in ER. At home, pt has been doing 6 cartons of Vital AF 1.2 via g-tube per day, which provides 1706 calories, 106.65 g protein, and 1153mL fluid/day. Flushes PEG w/ varying amount of H2O- goal is 120mL 4x/day per Gabriela. He also eats small bites of food by mouth- 2 eggs at breakfast, pureed Telugu toast, cheese and meat from [employer] at lunch, pureed soup/stew at dinner. Pt was 263.9# on 12/04/21 and has gained wt unintentionally. Per EMR was 275.6# yesterday prior to procedure. Gabriela states Lasix was decreased then increased when wt gain was noted. Pt drinks ~1/2 can of diet soda and sips on sugar free powerade throughout the day. Pt has history of aspiration PNA, suspected to be r/t reflux. Speech therapy has been following pt- per [employer] AUDITOR notes, okay for purees/thin liquids. Pt has been instructed on numerous occasions about risks of aspiration/reflex w/ PO intake but does not want to stop consuming nutrition via PO diet. Pt gets [employer] delivered to the home but does not like the tastes of the pureed meats. SO Gabriela has a magic bullet and tries to blend/puree or at least grind foods pt wants. - Nutrition Diagnosis: Intake Problem Excessive Energy Intake Intake Problem - Etiology: r/t excessive calorie intake from enteral and PO nutrition Intake Problem - Signs/Symptoms: as evidenced by estimated PO intake providing >500 calories/day per diet recall and enteral nutrition providing ~1700 calories/day which exceeds estimated nutritional needs Status: Active Problem - Protein Calorie Malnutrition Evidence of Malnutrition Exists: No - Nutrition Intervention Nutrition Prescription: 2614-4865 calories/day (25 calories/kg IBW). 70-80 g protein/day (1.0 g/kg IBW). 1875mL fluid/day (25mL/kg IBW) - Food / Nutrient Delivery Interventions Summary of nutrition intervention:: Nutrition education provided, Order/adjust enteral nutrition Nutrition support ordered as / adjusted to:: 1) Via G-tube: Vital AF 1.2 237mL TID (3 cartons/day) to provide 853 calories, 53 g protein, and 936mL fluid/day. Meets ~47% estimated calorie, 70% estimated protein needs/day. 2) Via PO diet: pureed/thin liquids per [employer]IT[employer] recommendation. Limiting high sodium, high carbohydrate foods. 3) Monitor fluid intake PO, daily wts, routine blood glucose monitoring. Nutrition education provided?: Yes Nutrition Counseling: Lengthy discussion w/ pt and Gabriela about risks of PO intake. Pt is tearful at times, does not want to stop eating by mouth. Feels he has already sacrificed many foods he enjoys (potato chips, cashews, pizza) because they are not easily pureed. Provided Gabriela w/ [employer] handout for pureed food preparation and reviewed strategies for providing foods w/ appropriate texture. Encouraged Gabriela to continue monitoring carbohydrate and sodium intake for pt. Asked pt to continue to monitor blood sugars, daily wts, and daily intake of PO fluid. Much encouragement and emotional support provided. Pt is easily frustrated w/ situation and appears anxious at times. Pt will call RDN to schedule follow-up visit. Per JAMAL Kwon RN who presented at end of RDN visit, pt is going to f/u w/ Friend this week d/t accidental removal of PEG. Coordination of Nutrition Care: Gabriela states pt is almost out of bags and tubing supplies- call to Sylvia JENKINS at [facility] who states she will call [facility] to follow-up on supply status. RDN will fax updated script for enteral nutrition to Dr. Brown's office and Sylvia made aware. - MNT Monitoring Active Nutrition Patient: Yes
[2022-01-13 16:40] VITALS: BMI 39.5
== END 2022-01-26 23:59 ==
LOC: DC 15:20
PROVIDERS: PCP Internal Medicine; Visit Provider Internal Medicine
DX: E11.22 Type 2 diabetes mellitus with diabetic chronic kidney disease (principal); N18.30 Chronic kidney disease, stage 3 unspecified
CPT/HCPCS: 97802

== ENCOUNTER 2022-02-18 13:43 | Emergency (ER) | payer MEDICARE, MEDICAID, SELFPAY ==
[2022-02-18 13:44] VITALS: BP 147/62; PULSE 56; RESP 20; TEMP 36.6; O2SAT 95; BMI 38.7
--- NOTE | 2022-02-18 13:59 | EDS_ITS ---
HPI History of Present Illness Chief Complaint: Wound Check Detail of Chief Complaint: Requesting check of his Luigi button which he feels is dislodged Informant: patient Narrative Narrative: Patient presents to the emergency department with concern about his Luigi button feeding tube. Patient states that his signal fitter placed a Luigi button in early December. He has not had any issues with it. Today he noticed that the Luigi button is protruding out of the stoma as normally it is flush against the abdomen. He denies accidentally pulling on it or other trauma to the area. Patient denies any other complaints. Prior similar symptoms: Yes [facility] Medical History (Updated 02/18/22 @ 15:[address] 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 Bronchiectasis with (acute) exacerbation Cardiology follow-up encounter Chronic cough Chronic respiratory failure with hypoxia COPD (chronic obstructive pulmonary disease) COPD (chronic obstructive pulmonary disease) CPAP (continuous positive airway pressure) dependence Depression Diabetes Essential hypertension Gastric reflux GERD (gastroesophageal reflux disease) High cholesterol History of aspiration pneumonia History of echocardiogram History of edema History of heart attack History of non-ST elevation myocardial infarction (NSTEMI) (08/2016) History of pain when walking History of steroid therapy History of stress test Hypertension Insulin dependent diabetes mellitus Kidney stones Kidney stones Leg pain, right Migraines Mood disorder Non-smoker Non-smoker On home oxygen therapy On home oxygen therapy Peripheral vascular occlusive disease Pneumonia Prostate disease Pulmonary nodule, left Right ankle pain Shortness of breath on exertion Silent aspiration Sleep apnea Type 2 diabetes mellitus Vision loss of left eye Wears glasses Wound of left lower extremity Home Medications acetaminophen 1,000 mg PO QHS PRN PRN 02/11/21 [History Last Taken 09/01/21] clotrimazole 1 applic TOPICAL BID PRN 08/06/21 [History Last Taken 3 Days Ago ~09/29/21] nystatin [Nyamyc] 1 applic TOPICAL BID PRN 08/06/21 [History Last Taken 3 Days Ago ~09/29/21] aspirin 81 mg tablet,delayed release 81 mg PO DAILY 11/05/21 [History Last Taken 01/09/22] spironolactone 40 mg PO DAILY 11/08/21 [History Last Taken Unknown] Artificial Tears([id number]) 2 drp EACH EYE Q1H PRN #0 ml 11/14/21 [Rx Last Taken Unknown] loratadine [Allergy Relief (loratadine)] 10 mg G-TUBE DAILY #0 tab 11/14/21 [Rx Last Taken Unknown] buspirone 7.5 mg tablet 7.5 mg PO TID #90 tab 11/25/21 [Rx Last Taken Unknown] isosorbide mononitrate 30 mg tablet,extended release 24 hr 30 mg PO DAILY #90 tab 11/25/21 [Rx Last Taken 01/12/22 08:00] metoclopramide HCl 5 mg tablet 5 mg PO BID #30 tab 11/25/21 [Rx Last Taken Unknown] nitroglycerin 0.4 mg sublingual tablet 0.4 mg SL Q5M PRN #30 tab 11/25/21 [Rx Last Taken Unknown] trazodone 100 mg tablet 100 mg G-TUBE QHS #90 tab 11/25/21 [Rx Last Taken Unknown] gauze bandage 4 X 4 sponge #1 ea 11/27/21 [Rx Last Taken Unknown] sucralfate 100 mg/mL oral suspension 10 ml PO QAC #1000 ml 11/27/21 [Rx Last Taken Unknown] losartan 25 mg tablet 25 mg PO DAILY #90 tab 12/08/21 [Rx Last Taken Unknown] amlodipine 2.5 mg tablet 2.5 mg G-TUBE DAILY #90 tab 01/09/22 [Rx Last Taken 01/12/22 08:00] atorvastatin 80 mg tablet 80 mg PO QHS #90 tab 01/09/22 [Rx Last Taken Unknown] clopidogrel 75 mg tablet 75 mg PO DAILY #90 tab 01/09/22 [Rx Last Taken 01/09/22] finasteride 5 mg tablet 5 mg PO DAILY #90 tab 01/09/22 [Rx Last Taken Unknown] fluoxetine 20 mg capsule 20 mg PO DAILY #90 cap 01/09/22 [Rx Last Taken Unknown] fluoxetine 40 mg capsule 40 mg PO DAILY #90 cap 01/09/22 [Rx Last Taken Unknown] furosemide 40 mg tablet 40 mg PO DAILY #90 tab 01/09/22 [Rx Last Taken Unknown] pregabalin 75 mg capsule 75 mg PO BID #60 cap 01/09/22 [Rx Last Taken 01/12/22 08:00] insulin detemir U-100 100 unit/mL (3 mL) subcutaneous pen 34 unit SUBCUT QHS 90 Days #30.6 ml 01/19/22 [Rx Last Taken Unknown] insulin lispro 100 unit/mL subcutaneous pen 1 sliding scale dose SUBCUT .5 times daily ml 01/27/22 [History Last Taken Unknown] albuterol sulfate 90 mcg/actuation aerosol inhaler 2 puff INHALATION Q4H PRN #8.5 g 02/04/22 [Rx Last Taken Unknown] pantoprazole 20 mg tablet,delayed release 20 mg PO DAILY tab 02/04/22 [History Last Taken Unknown] carvedilol 12.5 mg tablet 12.5 mg PO BID #180 tab 02/05/22 [Rx Last Taken Unknown] alprazolam 0.5 mg tablet 0.5 mg PO BID PRN #60 tab 02/06/22 [Rx Last Taken Unknown] Allergy/AdvReac Type Severity Reaction Status Date / Time allopurinol AdvReac Vomiting Verified 02/18/22 13:47 Influenza Virus Vaccines AdvReac Vomiting Verified 02/18/22 13:47 pneumococcal vaccine AdvReac Vomiting Verified 02/18/22 13:47 Family History (Reviewed 02/04/22 @ 12:56 by Sonal George INSURANCE HEALTHCARE CONSULTANT, INSURANCE HEALTHCARE CONSULTANT-C) Mother Diabetes Heart disease CHF Father Heart disease CO/CAD Myocardial infarction Surgical History (Reviewed 02/04/22 @ 12:56 by Sonal George INSURANCE HEALTHCARE CONSULTANT, INSURANCE HEALTHCARE CONSULTANT-C) H/O lithotripsy History of angioplasty of peripheral vessel (2016) History of angioplasty of peripheral vessel History of ankle surgery History of cardiac catheterization History of coronary artery stent placement (08/2016) History of coronary artery stent placement History of esophagogastroduodenoscopy (EGD) History of left heart catheterization (11/15/17) History of thyroid surgery Hx of lithotripsy Hx of surgery to heart and great vessels, presenting hazards to health Hx of surgical procedure Hx of thyroidectomy Hx of toe surgery Hx of toe surgery PEG (percutaneous endoscopic gastrostomy) status Social History (Reviewed 02/04/22 @ 12:56 by Sonal George INSURANCE HEALTHCARE CONSULTANT, INSURANCE HEALTHCARE CONSULTANT-C) household members: spouse housing: apartment Smoking Status: Never smoker alcohol intake: never substance use type: does not use ROS ROS ED ROS Narrative Requesting evaluation of Luigi button feeding tube Constitutional Constitutional ED: Reports systems reviewed and no addt'l complaints, except as documented; Denies body ache(s), change in weight or chills Eyes Eyes: Denies acute decrease in peripheral vision, change in vision, double vision or loss of vision ENT ENT ED: Reports none; Denies ear pain, lip swelling, loss taste/smell, neck pain, otalgia or sore throat Cardiovascular Cardiovascular: Reports none; Denies abdominal pain, chest pain with activity, leg edema, lightheadedness, palpitations, rapid heart rate or syncope Respiratory/Chest Respiratory/Chest: Reports none; Denies change in mental status, dry cough, dyspnea, hemoptysis, shortness of breath at rest or shortness of breath with exertion Gastrointestinal Gastrointestinal: Reports none; Denies abdominal pain, change in stool character, diarrhea, hematemesis, hematochezia, melena, rectal bleeding or vomiting Genitourinary Genitourinary ED: Reports none; Denies abdominal discomfort, anuria, dysuria, genital pain or polyuria Musculoskeletal Musculoskeletal: Reports none; Denies arthralgias, back pain, difficulty walking, extremity pain, muscle weakness or myalgias Integumentary Reports none; Denies abscess or rash Neurologic Neurologic: Reports none; Denies abnormal gait, confusion, focal weakness, frequent falls, headache(s), loss of vision, numbness, paresthesias, radicular pain, vertigo or weakness Psychiatric Psychiatric: Reports systems reviewed and no addt'l complaints, except as documented and none; Denies behavioral changes, confusion, difficulty concentrating, hallucinations, suicidal ideation, tactile hallucinations or visual hallucinations Endocrine Endocrinology: Denies none, cold intolerance, excessive sweating, fatigue or heat intolerance Hematologic/Lymphatic Hematologic/Lymphatic: Reports none; Denies anemia, easy bleeding or easy bruising Allergic/Immunologic Allergic/Immunologic ED: Denies as per HPI, none, lip swelling, mouth swelling, throat swelling, tongue swelling or hives EXAM Physical Exam Const Vital Signs: 02/18/22 13:44 02/18/22 15:07 Temperature 97.9 F Temperature Source Temporal Pulse Rate 56 L 62 Respiratory Rate 20 H 15 Blood Pressure 147/62 H 141/87 H Blood Pressure Mean 90 105 Pulse Ox 95 100 Oxygen Delivery Method Nasal Cannula Room Air Positive well nourished and well developed General Appearance ED: well developed and NAD HEENT Reports TM's clear and moist mucous membranes normocephalic and atraumatic; Negative for trauma or tenderness Tympanic Membrane ED: Yes TM's clear Eyes PERRL and EOMs intact bilaterally General Eye ED: Negative for pale conjunctiva or scleral icterus Neck no lymphadenopathy, supple and no JVD General: Negative for tenderness Chest Wall inspection of chest normal and palpation of chest normal Chest: Negative for tenderness Resp normal respiratory effort and clear to auscultation bilaterally Effort and Inspection: Negative for respiratory distress or pain with movement Auscultation: Negative for rhonchi, wheezes or diminished lung sounds Cardio regular rate, regular rhythm, S1 normal heart sound, S2 normal heart sound and no murmurs Peripheral Pulses: pulses 2+ throughout GI normal to inspection, nondistended, normoactive bowel sounds, soft to palpation, non-tender, non-distended and no masses GI Narrative: Patient noted to have a Luigi button feeding tube in place and does not easily slide out with traction however it is slightly elevated above the skin line. Area around it is nontender and no erythema or signs of infection noted. Back/Spine no CVA tenderness and no thoracic nor lumbar tenderness Extremity normal to inspection General Extremety ED: Negative for edema General Extremity: Negative for edema Neuro oriented x3, CN's II-XII intact bilaterally, no sensory deficits noted and gait normal Sensorium / Orientation: awake, alert, oriented to person, oriented to place and oriented to time Motor Exam: strength 5/5 throughout and strength abnormal Psych mental status grossly normal Skin no rashes or lesions noted and no wounds MDM MDM MDM Narrative Medical decision making narrative: The patient's Luigi button was initially removed by removing fluid from the balloon port which was a little over 5 cc. I then inflated the balloon once again and held it under water and there were small amount of bubbling. I suspect there might be a small leak. A new Liugi button was obtained 20 Kisw[place]ili tube that I was able to place into the fistulous tract without difficulty and the balloon was inflated with 6 cc of water. Despite holding the Luigi button against the skin while the balloon was inflated as I release the Luigi button it does pop up approximately half a centimeter off the skin. I attempted several times to apply pressure while inflating the balloon against the abdominal wall however the same result was that the feeding tube pops up about half a centimeter from the skin. At this point we did obtain a KUB with Gastrografin and it does appear that there is no extravasation and suspect the feeding tube is in place. Patient does not want a longer feeding tube as I presented this as an option but patient states that he has a Luigi button because the longer feeding tubes were getting pulled out and he was having a lot of issues with having to replace them frequently. Patient would prefer to follow-up with his signal fitter. Patient still eats by mouth and gives himself tube feeds about twice a day. He is advised to return to the ER if he has tube feed that returns around the feeding tube or if you should have pain with attempted feeding through the feeding tube. Discharge Plan Triage Chief Complaint: Wound Check ED Provider: Crystal Luna Dx/Rx/DC Orders Clinical Impression: Complication of feeding tube, Encounter for feeding tube placement Prescriptions: No Action aspirin [Adult Aspirin Regimen] 81 mg tablet,delayed release (DR/EC) 81 mg PO DAILY RF: 0 losartan 25 mg tablet 25 mg PO DAILY Qty: 90 RF: 2 atorvastatin 80 mg tablet 80 mg PO QHS Qty: 90 RF: 2 fluoxetine 20 mg capsule 20 mg PO DAILY Qty: 90 RF: 2 fluoxetine 40 mg capsule 40 mg PO DAILY Qty: 90 RF: 2 furosemide 40 mg tablet 40 mg PO DAILY Qty: 90 RF: 3 clopidogrel 75 mg tablet 75 mg PO DAILY Qty: 90 RF: 3 amlodipine [Norvasc] 2.5 mg tablet 2.5 mg G-tube DAILY Qty: 90 RF: 3 finasteride 5 mg tablet 5 mg PO DAILY Qty: 90 RF: 3 pregabalin [Lyrica] 75 mg capsule 75 mg PO BID Qty: 60 RF: 1 alprazolam 0.5 mg tablet 0.5 mg PO BID PRN (Reason: anxiety) Qty: 60 RF: 0 pantoprazole 20 mg tablet,delayed release (DR/EC) 20 mg PO DAILY RF: 0 albuterol sulfate 90 mcg/actuation HFA aerosol inhaler 2 puff inhalation Q4H PRN (Reason: shortness of breath or wheezing) Qty: 8.5 RF: 3 carvedilol 12.5 mg tablet 12.5 mg PO BID Qty: 180 RF: 3 insulin lispro 100 unit/mL insulin pen 1 sliding scale dose subcut .5 times daily RF: 0 acetaminophen 500 MG tablet 1,000 mg PO QHS PRN PRN (Reason: Pain 1-10 Or Fever) RF: 0 nystatin [Nyamyc] 100,000 unit/gram powder 1 applic topical BID PRN (Reason: Rash) RF: 0 clotrimazole 1 % cream 1 applic topical BID PRN (Reason: Rash) RF: 0 spironolactone 25 mg tablet 40 mg PO DAILY RF: 0 loratadine [Allergy Relief (loratadine)] 10 mg Tablet 10 mg G-tube DAILY Qty: 0 RF: 0 Artificial Tears([id number]) 1-0.2-0.2 % Drops 2 drp EACH EYE Q1H PRN (Reason: DRY EYES) Qty: 0 RF: 0 buspirone 7.5 mg tablet 7.5 mg PO TID Qty: 90 RF: 0 isosorbide mononitrate 30 mg tablet extended release 24 hr 30 mg PO DAILY Qty: 90 RF: 0 metoclopramide HCl [Reglan] 5 mg tablet 5 mg PO BID Qty: 30 RF: 0 nitroglycerin 0.4 mg tablet, sublingual 0.4 mg SL Q5M PRN (Reason: Chest Pain) Qty: 30 RF: 0 trazodone 100 mg tablet 100 mg G-tube QHS Qty: 90 RF: 0 sucralfate 100 mg/mL suspension 10 ml PO QAC Qty: 1000 RF: 0 (DME) Curity Gauze 4 X 4 sponge See Rx Instructions .ROUTE .MEDSUPPLY Qty: 1 RF: 0 insulin detemir U-100 100 unit/mL (3 mL) insulin pen 34 unit subcut QHS 90 Days Qty: 30.6 RF: 2 Primary Care Provider: Doretha Brown Referrals: Doretha Brown MD [Primary Care Provider] - Arjun Rodriguez DO [STAFF PHYSICIAN] - 3-5 Days Disposition Disposition: Home, Self Care
--- NOTE | 2022-02-18 14:37 | RAD_ITS ---
STUDY: X-RAY - ABDOMEN/PELVIS REASON FOR EXAM: Male, 62 years old. nghia-hurt tube placement TECHNIQUE: Single AP view of the abdomen / pelvis. COMPARISON: Comparison is made with prior study dated 01/12/2022. FINDINGS: Contrast is seen within the stomach. There is no demonstrated free abdominal air. Normal soft tissue structures. There are diffuse degenerative changes of the visualized lumbar spine. RAD/Abdomen Single View (Portable) IMPRESSION: Contrast is seen within the stomach. Electronically Signed: Den Carver MD at 15:23 EDT ,
[2022-02-18 15:07] VITALS: BP 141/87; PULSE 62; RESP 15; O2SAT 100
--- NOTE | 2022-02-18 15:11 | ED.RN ---
nghia-hurt button flushed with 35 ml of tap water to flush contrast out of tubing and device. order verified with md prior to flushing. yassine giang rn [id number]
[2022-02-18 15:39] VITALS: BP 142/85; PULSE 112; RESP 16; O2SAT 99
== END 2022-02-18 15:40 | disposition home or self-care (01) ==
PROVIDERS: Emergency Provider Emergency Medicine; PCP Internal Medicine; Visit Provider Emergency Medicine
DX: K94.23 Gastrostomy malfunction (principal); E11.51 Type 2 diabetes mellitus with diabetic peripheral angiopathy without gangrene; J44.9 Chronic obstructive pulmonary disease, unspecified; Z79.4 Long term (current) use of insulin; E78.00 Pure hypercholesterolemia, unspecified; I10 Essential (primary) hypertension; I25.10 Atherosclerotic heart disease of native coronary artery without angina pectoris; M10.9 Gout, unspecified; F32.A Depression, unspecified; F41.9 Anxiety disorder, unspecified; M19.90 Unspecified osteoarthritis, unspecified site; Z87.01 Personal history of pneumonia (recurrent); K21.9 Gastro-esophageal reflux disease without esophagitis; I25.2 Old myocardial infarction; Z87.442 Personal history of urinary calculi; G47.30 Sleep apnea, unspecified; Z79.82 Long term (current) use of aspirin; Z79.899 Other long term (current) drug therapy; Z95.5 Presence of coronary angioplasty implant and graft
CPT/HCPCS: 74018; 99282

== ENCOUNTER 2022-02-22 11:26 | Inpatient (IN) | payer MEDICARE, MEDICAID, SELFPAY ==
[2022-02-22] VITALS (11 sets, daily range): BP systolic 127–241; BP diastolic 48–111; PULSE 64–94; RESP 16–22; TEMP 37.2–38; O2SAT 90–99; BMI 39.7; BMI 39.1
--- NOTE | 2022-02-22 11:40 | EKG12_ITS ---
Test Reason : Blood Pressure : / mmHG Vent. Rate : 093 BPM Atrial Rate : 092 BPM P-R Int : 178 ms QRS Dur : 076 ms QT Int : 392 ms P-R-T Axes : -38 012 046 degrees QTc Int : 487 ms Normal sinus rhythm Nonspecific ST abnormality Prolonged QT Abnormal ECG Confirmed by ARAMIS JOHNS, MAURO ([id number]), medical transcription editor SHARAN DOE ([id number]) on 02/24/2022 10:35:15 AM Referred By: DEBORAH Confirmed By:MAURO SELF MD
--- NOTE | 2022-02-22 11:40 | RAD_ITS ---
STUDY: X-RAY CHEST REASON FOR EXAM: Male, 62 years old. Fever dyspnea TECHNIQUE: Single frontal view of the chest. COMPARISON: 12/04/2019 FINDINGS: There are low lung volumes. There is stable elevation of the right hemidiaphragm. There are patchy opacities throughout the right mid and lower lung as well as lung base. Normal size heart. Normal mediastinum and pat. Normal visualized pulmonary arteries. Normal visualized aortic arch and descending thoracic aorta. Normal visualized thoracic spine. Normal visualized ribs, clavicles, and shoulders. There is no demonstrated abnormality of the visualized soft tissue structures of the upper abdomen. RAD/Chest 1 View (Portable) IMPRESSION: Bilateral patchy opacities, a nonspecific finding may be secondary to multifocal pneumonia. Electronically Signed: Eryn Wallace MD at 12:49 EDT ,
--- NOTE | 2022-02-22 11:43 | ED.VIS.DYS ---
HPI History of Present Illness Chief Complaint: Shortness of Breath Detail of Chief Complaint: Cough and shortness of breath Informant: patient Narrative Narrative: Patient presents to the emergency department with cough and shortness of breath that started last evening. Patient states that he has a history of aspiration pneumonia and is had episodes like this 6 or 7 times in the last 6 months. Patient developed a low-grade fever. He has had some chills. Has had some cough that is mostly nonproductive but did make him vomit. Patient has had his COVID vaccine and booster. Denies any sick contacts. Patient was seen by myself several days ago in the ER for evaluation of his Luigi button. Patient states that he has not had any issues with his Luigi button he does put feeds through it twice a day but he also eats by mouth. Patient denies chest pain. Patient states that he feels very nervous and anxious. Patient states at home his oxygen level was down into the 80s at times. [facility] Medical History (Updated 02/22/22 @ 12:[address] 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 Bronchiectasis with (acute) exacerbation Cardiology follow-up encounter Chronic cough Chronic respiratory failure with hypoxia COPD (chronic obstructive pulmonary disease) COPD (chronic obstructive pulmonary disease) CPAP (continuous positive airway pressure) dependence Depression Diabetes Essential hypertension Gastric reflux GERD (gastroesophageal reflux disease) High cholesterol History of aspiration pneumonia History of echocardiogram History of edema History of heart attack History of non-ST elevation myocardial infarction (NSTEMI) (08/2016) History of pain when walking History of steroid therapy History of stress test Hypertension Insulin dependent diabetes mellitus Kidney stones Kidney stones Leg pain, right Migraines Mood disorder Non-smoker Non-smoker On home oxygen therapy On home oxygen therapy Peripheral vascular occlusive disease Pneumonia Prostate disease Pulmonary nodule, left Right ankle pain Shortness of breath on exertion Silent aspiration Sleep apnea Type 2 diabetes mellitus Vision loss of left eye Wears glasses Wound of left lower extremity Home Medications acetaminophen 1,000 mg PO QHS PRN PRN 02/11/21 [History Last Taken 09/01/21] clotrimazole 1 applic TOPICAL BID PRN 08/06/21 [History Last Taken 3 Days Ago ~09/29/21] nystatin [Nyamyc] 1 applic TOPICAL BID PRN 08/06/21 [History Last Taken 3 Days Ago ~09/29/21] aspirin 81 mg tablet,delayed release 81 mg PO DAILY 11/05/21 [History Last Taken 01/09/22] spironolactone 40 mg PO DAILY 11/08/21 [History Last Taken Unknown] Artificial Tears([id number]) 2 drp EACH EYE Q1H PRN #0 ml 11/14/21 [Rx Last Taken Unknown] loratadine [Allergy Relief (loratadine)] 10 mg G-TUBE DAILY #0 tab 11/14/21 [Rx Last Taken Unknown] buspirone 7.5 mg tablet 7.5 mg PO TID #90 tab 11/25/21 [Rx Last Taken Unknown] isosorbide mononitrate 30 mg tablet,extended release 24 hr 30 mg PO DAILY #90 tab 11/25/21 [Rx Last Taken 01/12/22 08:00] metoclopramide HCl 5 mg tablet 5 mg PO BID #30 tab 11/25/21 [Rx Last Taken Unknown] nitroglycerin 0.4 mg sublingual tablet 0.4 mg SL Q5M PRN #30 tab 11/25/21 [Rx Last Taken Unknown] trazodone 100 mg tablet 100 mg G-TUBE QHS #90 tab 11/25/21 [Rx Last Taken Unknown] gauze bandage 4 X 4 sponge #1 ea 11/27/21 [Rx Last Taken Unknown] sucralfate 100 mg/mL oral suspension 10 ml PO QAC #1000 ml 11/27/21 [Rx Last Taken Unknown] losartan 25 mg tablet 25 mg PO DAILY #90 tab 12/08/21 [Rx Last Taken Unknown] amlodipine 2.5 mg tablet 2.5 mg G-TUBE DAILY #90 tab 01/09/22 [Rx Last Taken 01/12/22 08:00] atorvastatin 80 mg tablet 80 mg PO QHS #90 tab 01/09/22 [Rx Last Taken Unknown] clopidogrel 75 mg tablet 75 mg PO DAILY #90 tab 01/09/22 [Rx Last Taken 01/09/22] finasteride 5 mg tablet 5 mg PO DAILY #90 tab 01/09/22 [Rx Last Taken Unknown] fluoxetine 20 mg capsule 20 mg PO DAILY #90 cap 01/09/22 [Rx Last Taken Unknown] fluoxetine 40 mg capsule 40 mg PO DAILY #90 cap 01/09/22 [Rx Last Taken Unknown] furosemide 40 mg tablet 40 mg PO DAILY #90 tab 01/09/22 [Rx Last Taken Unknown] pregabalin 75 mg capsule 75 mg PO BID #60 cap 01/09/22 [Rx Last Taken 01/12/22 08:00] insulin detemir U-100 100 unit/mL (3 mL) subcutaneous pen 34 unit SUBCUT QHS 90 Days #30.6 ml 01/19/22 [Rx Last Taken Unknown] insulin lispro 100 unit/mL subcutaneous pen 1 sliding scale dose SUBCUT .5 times daily ml 01/27/22 [History Last Taken Unknown] albuterol sulfate 90 mcg/actuation aerosol inhaler 2 puff INHALATION Q4H PRN #8.5 g 02/04/22 [Rx Last Taken Unknown] pantoprazole 20 mg tablet,delayed release 20 mg PO DAILY tab 02/04/22 [History Last Taken Unknown] carvedilol 12.5 mg tablet 12.5 mg PO BID #180 tab 02/05/22 [Rx Last Taken Unknown] alprazolam 0.5 mg tablet 0.5 mg PO BID PRN #60 tab 02/06/22 [Rx Last Taken Unknown] Allergy/AdvReac Type Severity Reaction Status Date / Time allopurinol AdvReac Vomiting Verified 02/22/22 11:33 Influenza Virus Vaccines AdvReac Vomiting Verified 02/22/22 11:33 pneumococcal vaccine AdvReac Vomiting Verified 02/22/22 11:33 Family History Mother Diabetes Heart disease CHF Father Heart disease [place]/CAD Myocardial infarction Surgical History H/O lithotripsy History of angioplasty of peripheral vessel (2016) History of angioplasty of peripheral vessel History of ankle surgery History of cardiac catheterization History of coronary artery stent placement (08/2016) History of coronary artery stent placement History of esophagogastroduodenoscopy (EGD) History of left heart catheterization (11/15/17) History of thyroid surgery Hx of lithotripsy Hx of surgery to heart and great vessels, presenting hazards to health Hx of surgical procedure Hx of thyroidectomy Hx of toe surgery Hx of toe surgery PEG (percutaneous endoscopic gastrostomy) status Social History household members: spouse housing: apartment Smoking Status: Never smoker alcohol intake: never substance use type: does not use ROS ROS ED Constitutional Constitutional ED: Reports systems reviewed and no addt'l complaints, except as documented, chills and fever(s); Denies body ache(s) or change in weight Eyes Eyes: Denies acute decrease in peripheral vision, change in vision, double vision or loss of vision ENT ENT ED: Reports none; Denies ear pain, lip swelling, loss taste/smell, neck pain, otalgia or sore throat Cardiovascular Cardiovascular: Reports none; Denies abdominal pain, chest pain with activity, leg edema, lightheadedness, palpitations, rapid heart rate or syncope Respiratory/Chest Respiratory/Chest: Reports none, cough and dyspnea; Denies change in mental status, dry cough, hemoptysis, shortness of breath at rest or shortness of breath with exertion Gastrointestinal Gastrointestinal: Reports none; Denies abdominal pain, change in stool character, diarrhea, hematemesis, hematochezia, melena, rectal bleeding or vomiting Genitourinary Genitourinary ED: Reports none; Denies abdominal discomfort, anuria, dysuria, genital pain or polyuria Musculoskeletal Musculoskeletal: Reports none; Denies arthralgias, back pain, difficulty walking, extremity pain, muscle weakness or myalgias Integumentary Reports none; Denies abscess or rash Neurologic Neurologic: Reports none; Denies abnormal gait, confusion, focal weakness, frequent falls, headache(s), loss of vision, numbness, paresthesias, radicular pain, vertigo or weakness Psychiatric Psychiatric: Reports systems reviewed and no addt'l complaints, except as documented and none; Denies behavioral changes, confusion, difficulty concentrating, hallucinations, suicidal ideation, tactile hallucinations or visual hallucinations Endocrine Endocrinology: Denies none, cold intolerance, excessive sweating, fatigue or heat intolerance Hematologic/Lymphatic Hematologic/Lymphatic: Reports none; Denies anemia, easy bleeding or easy bruising Allergic/Immunologic Allergic/Immunologic ED: Denies as per HPI, none, lip swelling, mouth swelling, throat swelling, tongue swelling or hives EXAM Physical Exam Const Vital Signs: 02/22/22 11:28 02/22/22 11:32 02/22/22 11:38 Temperature 100.4 F H 100.4 F H Temperature Source Temporal Temporal Pulse Rate 94 94 Respiratory Rate 22 H 22 H Respiratory Effort Short of Breath Respiratory Pattern Tachypnea Blood Pressure 241/111 H 241/111 H Blood Pressure Mean 154 154 Pulse Ox 91 91 Oxygen Delivery Method Nasal Cannula Nasal Cannula Nasal Cannula Oxygen Flow Rate (L/min) 4 4 4 02/22/22 11:54 Temperature Temperature Source Pulse Rate 89 Respiratory Rate 20 H Respiratory Effort Respiratory Pattern Normal Blood Pressure Blood Pressure Mean Pulse Ox Oxygen Delivery Method Oxygen Flow Rate (L/min) Positive well nourished and well developed General Appearance ED: well developed and NAD HEENT Reports TM's clear and moist mucous membranes normocephalic and atraumatic; Negative for trauma or tenderness Tympanic Membrane ED: Yes TM's clear Eyes PERRL and EOMs intact bilaterally General Eye ED: Negative for pale conjunctiva or scleral icterus Neck no lymphadenopathy, supple and no JVD General: Negative for tenderness Chest Wall inspection of chest normal and palpation of chest normal Chest: Negative for tenderness Resp normal respiratory effort and clear to auscultation bilaterally Effort and Inspection: Negative for respiratory distress or pain with movement Auscultation: rhonchi and wheezes; Negative for diminished lung sounds Cardio regular rate, regular rhythm, S1 normal heart sound, S2 normal heart sound and no murmurs Peripheral Pulses: pulses 2+ throughout GI normal to inspection, nondistended, normoactive bowel sounds, soft to palpation, non-tender, non-distended and no masses Back/Spine no CVA tenderness and no thoracic nor lumbar tenderness Extremity normal to inspection General Extremety ED: Negative for edema General Extremity: Negative for edema Neuro oriented x3, CN's II-XII intact bilaterally, no sensory deficits noted and gait normal Sensorium / Orientation: awake, alert, oriented to person, oriented to place and oriented to time Motor Exam: strength 5/5 throughout and strength abnormal Psych mental status grossly normal Skin no rashes or lesions noted and no wounds MDM MDM MDM Narrative Medical decision making narrative: The line established on arrival. Patient placed on a shelter monitor. Patient was given a milligram of Ativan and a DuoNeb aerosol. He had blood cultures ordered. He was started apparently on Zosyn for history of aspiration pneumonia. His influenza screen and Covid rapid were negative. He does have an elevated white blood cell count of 15.4. His lactate was normal. Urinalysis was normal. On chest x-ray suspect he likely has infiltrate in left lower lobe however official report from radiology pending. Case will be discussed with hospitalist evaluate patient for admission for aspiration pneumonia Lab Data Attestation: I reviewed the patient's lab results. Labs: Laboratory Results - last 24 hr 02/22/22 02/22/22 02/22/22 11:45 11:45 11:45 WBC 15.4 H RBC 4.75 Hgb 13.0 Hct 41.3 MCV 86.9 MCH 27.4 MCHC 31.5 L RDW Std Deviation 45.5 H RDW Coeff of James 14.1 Plt Count 226 MPV 11.1 Immature Gran % (Auto) 0.300 Neut % (Auto) 89.1 H Lymph % (Auto) 5.9 L [place] % (Auto) 3.9 Eos % (Auto) 0.6 Baso % (Auto) 0.2 Absolute Neuts (auto) 13.7 H Absolute Lymphs (auto) 0.91 Nucleated RBC % 0 Sodium 141 Potassium 4.1 Chloride 103 Carbon Dioxide 35.0 H Anion Gap 3 L BUN 22 H Creatinine 1.19 Estim Creat Clear Calc 65.60 Est GFR (MDRD) Af Amer 79 Est GFR (MDRD) Non-Af 66 BUN/Creatinine Ratio 18.5 Glucose 148 H Lactic Acid 1.9 Calcium 9.3 Urine Color Urine Clarity Urine pH Ur Specific [place] Urine Protein Urine Glucose (UA) Urine Ketones Urine Occult Blood Urine Nitrite Urine Bilirubin Urine Urobilinogen Ur Leukocyte Esterase Urine RBC Urine WBC Ur Squamous Epith Cells Urine Bacteria Urine Mucus 02/22/22 11:45 WBC RBC Hgb Hct MCV MCH MCHC RDW Std Deviation RDW Coeff of James Plt Count MPV Immature Gran % (Auto) Neut % (Auto) Lymph % (Auto) [place] % (Auto) Eos % (Auto) Baso % (Auto) Absolute Neuts (auto) Absolute Lymphs (auto) Nucleated RBC % Sodium Potassium Chloride Carbon Dioxide Anion Gap BUN Creatinine Estim Creat Clear Calc Est GFR (MDRD) Af Amer Est GFR (MDRD) Non-Af BUN/Creatinine Ratio Glucose Lactic Acid Calcium Urine Color Yellow Urine Clarity Clear Urine pH 5.0 Ur Specific [place] 1.020 Urine Protein 100 H Urine Glucose (UA) Normal Urine Ketones Negative Urine Occult Blood 25 H Urine Nitrite Negative Urine Bilirubin Negative Urine Urobilinogen Normal Ur Leukocyte Esterase Negative Urine RBC 0 SEEN Urine WBC 0 SEEN Ur Squamous Epith Cells 0 SEEN Urine Bacteria 0 SEEN Urine Mucus 0 SEEN Radiography Chest X-Ray - ED: 1 View Diagnostic Testin view chest x-ray obtained interpreted by myself as elevated right hemidiaphragm. Patient has increased markings in the left lower lobe. Official report from radiology pending. EKG Initial EKG: Attestation: I personally reviewed and interpreted this EKG as follows: Comments: Sinus rhythm with rate of [address] changes Discharge Plan Triage Chief Complaint: Shortness of Breath ED Provider: Crystal Luna Dx/Rx/DC Orders Clinical Impression: Aspiration pneumonia, Acute dyspnea, Hypoxemia Prescriptions: No Action aspirin [Adult Aspirin Regimen] 81 mg tablet,delayed release (DR/EC) 81 mg PO DAILY RF: 0 losartan 25 mg tablet 25 mg PO DAILY Qty: 90 RF: 2 atorvastatin 80 mg tablet 80 mg PO QHS Qty: 90 RF: 2 fluoxetine 20 mg capsule 20 mg PO DAILY Qty: 90 RF: 2 fluoxetine 40 mg capsule 40 mg PO DAILY Qty: 90 RF: 2 furosemide 40 mg tablet 40 mg PO DAILY Qty: 90 RF: 3 clopidogrel 75 mg tablet 75 mg PO DAILY Qty: 90 RF: 3 amlodipine [Norvasc] 2.5 mg tablet 2.5 mg G-tube DAILY Qty: 90 RF: 3 finasteride 5 mg tablet 5 mg PO DAILY Qty: 90 RF: 3 pregabalin [Lyrica] 75 mg capsule 75 mg PO BID Qty: 60 RF: 1 alprazolam 0.5 mg tablet 0.5 mg PO BID PRN (Reason: anxiety) Qty: 60 RF: 0 pantoprazole 20 mg tablet,delayed release (DR/EC) 20 mg PO DAILY RF: 0 albuterol sulfate 90 mcg/actuation HFA aerosol inhaler 2 puff inhalation Q4H PRN (Reason: shortness of breath or wheezing) Qty: 8.5 RF: 3 carvedilol 12.5 mg tablet 12.5 mg PO BID Qty: 180 RF: 3 insulin lispro 100 unit/mL insulin pen 1 sliding scale dose subcut .5 times daily RF: 0 acetaminophen 500 MG tablet 1,000 mg PO QHS PRN PRN (Reason: Pain 1-10 Or Fever) RF: 0 nystatin [Nyamyc] 100,000 unit/gram powder 1 applic topical BID PRN (Reason: Rash) RF: 0 clotrimazole 1 % cream 1 applic topical BID PRN (Reason: Rash) RF: 0 spironolactone 25 mg tablet 40 mg PO DAILY RF: 0 loratadine [Allergy Relief (loratadine)] 10 mg Tablet 10 mg G-tube DAILY Qty: 0 RF: 0 Artificial Tears([id number]) 1-0.2-0.2 % Drops 2 drp EACH EYE Q1H PRN (Reason: DRY EYES) Qty: 0 RF: 0 buspirone 7.5 mg tablet 7.5 mg PO TID Qty: 90 RF: 0 isosorbide mononitrate 30 mg tablet extended release 24 hr 30 mg PO DAILY Qty: 90 RF: 0 metoclopramide HCl [Reglan] 5 mg tablet 5 mg PO BID Qty: 30 RF: 0 nitroglycerin 0.4 mg tablet, sublingual 0.4 mg SL Q5M PRN (Reason: Chest Pain) Qty: 30 RF: 0 trazodone 100 mg tablet 100 mg G-tube QHS Qty: 90 RF: 0 sucralfate 100 mg/mL suspension 10 ml PO QAC Qty: 1000 RF: 0 (DME) Curity Gauze 4 X 4 sponge See Rx Instructions .ROUTE .MEDSUPPLY Qty: 1 RF: 0 insulin detemir U-100 100 unit/mL (3 mL) insulin pen 34 unit subcut QHS 90 Days Qty: 30.6 RF: 2 Primary Care Provider: Doretha Brown Referrals: Doretha Brown MD [Primary Care Provider] - Disposition Disposition: Acute Care Hospital [facility]
[2022-02-22] MEDS: LORazepam 2 MG/ML Syringe 1 MG IV (11:54)
[2022-02-22] MEDS: Ipratropium/Albuterol Sulfate 3 ML AMPUL.NEB INHALATION ×2 (11:54→19:12)
[2022-02-22] MEDS: 0.9% Normal Saline 1,000 ML 150 ML IV (11:54)
[2022-02-22 11:57] LABS: Absolute Lymphocyte Count 0.91 X10^3/uL (0.83-4.51); Absolute Neutrophil Count 13.7 X10^3/uL (2.0-7.7); Basophil# 0.03 X10^3/uL; Basophil% 0.2 % (0-1); Eosinophil# 0.09 X10^3/uL; Eosinophils% 0.6 % (0-5); Hematocrit 41.3 % (40-54); Lymphocyte # 0.91 X10^3/ul (0.83-4.51); Lymphocyte % 5.9 % (19-41); Mean Corp Hgb Conc 31.5 g/dL (32-36); Mean Corpuscular Hgb 27.4 pg (27.0-32.0); Mean Corpuscular Volume 86.9 fL (80-94); Mean Platelet Vol. 11.1 fl (6.2-12.0); Monocyte% 3.9 % (0-10); NRBC Flagged by Analyzer 0 % (0-5); Neutrophil # 13.73 X10^3/uL (2.7-7.7); Neutrophil % 89.1 % (47-70); Platelet Count 226 K/mm3 (150-450); RBC Distribution Width CV 14.1 % (11.6-14.6); RBC Distribution Width SD 45.5 fl (35.1-43.9); Red Blood Count 4.75 M/mm3 (4.6-6.2); White Blood Count 15.4 K/mm3 (4.4-11.0)
[2022-02-22 12:09] LABS: Bacteria 0 SEEN /hpf (None Seen); Mucous, Urine 0 SEEN /hpf (<or=2+); Red Blood Cells-Urine 0 SEEN /hpf (0-5); Squamous Epithelial Cells - UA 0 SEEN /hpf (0-5); White Blood Cells 0 SEEN /hpf (0-5)
[2022-02-22 12:11] LABS: Anion Gap 3 (5-15); BUN 22 mg/dL (7-18); BUN/Creat Ratio 18.5 RATIO (10-20); Calcium,Total 9.3 mg/dL (8.5-10.1); Chloride 103 mmol/L (98-107); Color, Urine Yellow (Yellow); Creatinine, Serum 1.19 mg/dL (0.70-1.30); EST Glomerular Filtration Rate 66 mL/min (>60); Est Glom Filt Rate - Afr Amer 79 mL/min (>60); Glucose 148 mg/dL (74-106); Glucose, Dipstick Normal (Normal); Ketone-Dipstick Negative (Negative); Leukocyte Esterase-Dipstick Negative /ul (Negative); Nitrite-Dipstick Negative (Negative); Occult Blood-Urine 25 /ul (Negative); Potassium 4.1 mmol/L (3.5-5.1); Protein-Dipstick 100 mg/dl (Negative); Sodium Level 141 mmol/L (136-145); Urine Bilirubin Dipstick Negative (Negative); Urine Clarity Clear (Clear); Urine Urobilinogen Normal (Normal)
[2022-02-22 12:22] LABS: Lactic Acid 1.9 mmol/L (0.4-1.9)
--- NOTE | 2022-02-22 14:12 | HP.PCM.HOS_ITS ---
Documented by User: Sheri Vogt NP, IMPLEMENTATION SPECIALIST PAYROLL-C 02/22/22 14:49 HPI - General General Date of Admission: 02/22/22 HPI Narrative REA HANNA, is a 62 M who presents to the emergency room due to suspected aspiration. Patient has very flat affect and much of HPI provided by at bedside. states patient had shaking last night along with fever and coug h. Patient has extensive history of recurrent aspiration pneumonia. He is on 3 to 4 L nasal cannula chronically at baseline. Patient denies significant shortness of breath. He is currently on baseline home O2 requirements. states patient does appear to be short of breath from her's perspective. Patient is on modified diet for chronic silent aspiration. Him and his both deny oral intake out of modified recommendations. Patient noted to have fever 100.4 on admission. He denies other associated symptoms or complaints. He has a past medical history of chronic hypoxic respiratory failure, COPD, chronic silent aspiration, hypertension, hyperlipidemia, type 2 diabetes mellitus with gastroparesis, mood disorder/anxiety/depression, obesity, chronic heart failure with preserved ejection fraction, GERD. [facility] Medical History Acute and chronic respiratory failure Acute gout Ambulates with cane Amputation of one or more toes Anxiety Anxiety and depression Arrhythmia Arrhythmia Arthritis Aspiration into airway Aspiration pneumonia Atherosclerotic heart disease of [place] coronary artery without angina pectoris Blind left eye Bronchiectasis with (acute) exacerbation Cardiology follow-up encounter Chronic cough Chronic respiratory failure with hypoxia COPD (chronic obstructive pulmonary disease) COPD (chronic obstructive pulmonary disease) CPAP (continuous positive airway pressure) dependence Depression Diabetes Essential hypertension Gastric reflux GERD (gastroesophageal reflux disease) High cholesterol History of aspiration pneumonia History of echocardiogram History of edema History of heart attack History of non-ST elevation myocardial infarction (NSTEMI) (08/2016) History of pain when walking History of steroid therapy History of stress test Hypertension Insulin dependent diabetes mellitus Kidney stones Kidney stones Leg pain, right Migraines Mood disorder Non-smoker Non-smoker On home oxygen therapy On home oxygen therapy Peripheral vascular occlusive disease Pneumonia Prostate disease Pulmonary nodule, left Right ankle pain Shortness of breath on exertion Silent aspiration Sleep apnea Type 2 diabetes mellitus Vision loss of left eye Wears glasses Wound of left lower extremity Home Medications acetaminophen 1,000 mg PO QHS PRN PRN 02/11/21 [History Last Taken 09/01/21] aspirin 81 mg tablet,delayed release 81 mg PO DAILY 11/05/21 [History Last Taken 01/09/22] spironolactone 40 mg PO DAILY 11/08/21 [History Last Taken Unknown] Artificial Tears(os-[id number]) 2 drp EACH EYE Q1H PRN #0 ml 11/14/21 [Rx Last Taken Unknown] loratadine [Allergy Relief (loratadine)] 10 mg G-TUBE DAILY #0 tab 11/14/21 [Rx Last Taken Unknown] buspirone 7.5 mg tablet 7.5 mg PO TID #90 tab 11/25/21 [Rx Last Taken Unknown] isosorbide mononitrate 30 mg tablet,extended release 24 hr 30 mg PO DAILY #90 tab 11/25/21 [Rx Last Taken 01/12/22 08:00] metoclopramide HCl 5 mg tablet 5 mg PO BID #30 tab 11/25/21 [Rx Last Taken Unkno wn] nitroglycerin 0.4 mg sublingual tablet 0.4 mg SL Q5M PRN #30 tab 11/25/21 [Rx Last Taken Unknown] trazodone 100 mg tablet 100 mg G-TUBE QHS #90 tab 11/25/21 [Rx Last Taken Unknown] gauze bandage 4 X 4 sponge #1 ea 11/27/21 [Rx Last Taken Unknown] losartan 25 mg tablet 25 mg PO DAILY #90 tab 12/08/21 [Rx Last Taken Unknown] amlodipine 2.5 mg tablet 2.5 mg G-TUBE DAILY #90 tab 01/09/22 [Rx Last Taken 01/12/22 08:00] atorvastatin 80 mg tablet 80 mg PO QHS #90 tab 01/09/22 [Rx Last Taken Unknown] clopidogrel 75 mg tablet 75 mg PO DAILY #90 tab 01/09/22 [Rx Last Taken 01/09/22] finasteride 5 mg tablet 5 mg PO DAILY #90 tab 01/09/22 [Rx Last Taken Unknown] fluoxetine 20 mg capsule 20 mg PO DAILY #90 cap 01/09/22 [Rx Last Taken Unknown] fluoxetine 40 mg capsule 40 mg PO DAILY #90 cap 01/09/22 [Rx Last Taken Unknown] furosemide 40 mg tablet 40 mg PO DAILY #90 tab 01/09/22 [Rx Last Taken Unknown] pregabalin 75 mg capsule 75 mg PO BID #60 cap 01/09/22 [Rx Last Taken 01/12/22 08:00] insulin detemir U-100 100 unit/mL (3 mL) subcutaneous pen 34 unit SUBCUT QHS 90 Days #30.6 ml 01/19/22 [Rx Last Taken Unknown] insulin lispro 100 unit/mL subcutaneous pen 1 sliding scale dose SUBCUT .5 times daily ml 01/27/22 [History Last Taken Unknown] albuterol sulfate 90 mcg/actuation aerosol inhaler 2 puff INHALATION Q4H PRN #8.5 g 02/04/22 [Rx Last Taken Unknown] pantoprazole 20 mg tablet,delayed release 20 mg PO DAILY tab 02/04/22 [History Last Taken Unknown] carvedilol 12.5 mg tablet 12.5 mg PO BID #180 tab 02/05/22 [Rx Last Taken Unknown] alprazolam 0.5 mg tablet 0.5 mg PO BID PRN #60 tab 02/06/22 [Rx Last Taken Unknown] insulin lispro 10 unit SUBCUT 5X/DAY 02/22/22 [History Last Taken Unknown] Allergy/AdvReac Type Severity Reaction Status Date / Time allopurinol AdvReac Vomiting Verified 02/22/22 11:33 Influenza Virus Vaccines AdvReac Vomiting Verified 02/22/22 11:33 pneumococcal vaccine AdvReac Vomiting Verified 02/22/22 11:33 Family History Mother Diabetes Heart disease CHF Father Heart disease OR/CAD Myocardial infarction Surgical History (Reviewed 02/22/22 @ 14:29 by Sheri Vogt IMPLEMENTATION SPECIALIST PAYROLL, IMPLEMENTATION SPECIALIST PA[employer]ROLL-C) H/O lithotripsy History of angioplasty of peripheral vessel (2016) History of angioplasty of peripheral vessel History of ankle surgery History of cardiac catheterization History of coronary artery stent placement (08/2016) History of coronary artery stent placement History of esophagogastroduodenoscopy (EGD) History of left heart catheterization (11/15/17) History of thyroid surgery Hx of lithotripsy Hx of surgery to heart and great vessels, presenting hazards to health Hx of surgical procedure Hx of thyroidectomy Hx of toe surgery Hx of toe surgery PEG (percutaneous endoscopic gastrostomy) status Social History household members: spouse housing: apartment Smoking Status: Never smoker alcohol intake: never substance use type: does not use ROS Constitutional Constitutional: Reports chills and fever(s); Denies change in weight, fatigue or weakness Cardiovascular Cardiovascular: Denies chest pain, edema, lightheadedness, palpitations or syncope Respiratory/Chest Respiratory/Chest: Reports cough and dyspnea; Denies wheezing Gastrointestinal Gastrointestinal: Denies abdominal pain, constipation, diarrhea, nausea or vomiting Genitourinary Genitourinary: Denies burning urination, difficulty urinating, dysuria, h ematuria, urinary frequency, urinary incontinence or urinary urgency Musculoskeletal Musculoskeletal: Denies back pain, joint pain or muscle weakness Integumentary Integumentary: Denies erythema, lesions, rash or wounds Neurologic Neurologic: Denies abnormal speech, confusion, dizziness, focal weakness, numbness, paresthesias, seizure-like activity or syncope Psychiatric Psychiatric: Denies anxiety or depression Hematologic/Lymphatic Hematologic/Lymphatic: Denies anemia, easy bleeding or easy bruising Allergic/Immunologic Allergic/Immunologic: Denies hives or asthma Vital Signs Vital Signs Vital Signs: 02/22/22 11:28 02/22/22 11:32 02/22/22 11:38 Temperature 100.4 F H 100.4 F H Temperature Source Temporal Temporal Pulse Rate 94 94 Respiratory Rate 22 H 22 H Respiratory Effort Short of Breath Respiratory Pattern Tachypnea Blood Pressure 241/111 H 241/111 H Blood Pressure Mean 154 154 Pulse Ox 91 91 Oxygen Delivery Method Nasal Cannula Nasal Cannula Nasal Cannula Oxygen Flow Rate (L/min) 4 4 4 02/22/22 11:54 02/22/22 12:00 02/22/22 13:00 Temperature Temperature Source Pulse Rate 89 81 94 Respiratory Rate 20 H 16 16 Respiratory Effort Respiratory Pattern Normal Blood Pressure 155/79 H 171/88 H Blood Pressure Mean 104 115 Pulse Ox 95 95 Oxygen Delivery Method Nasal Cannula Nasal Cannula Oxygen Flow Rate (L/min) 4 4 02/22/22 13:21 Temperature Temperature Source Pulse Rate 92 Respiratory Rate 17 Respiratory Effort Respiratory Pattern Blood Pressure 138/67 H Blood Pressure Mean 90 Pulse Ox 96 Oxygen Delivery Method Nasal Cannula Oxygen Flow Rate (L/min) 4 Weight Weight: 277 lb 1.937 oz Body Mass Index (BMI) 39.7 Physical Exam Const alert, oriented x3 and no apparent distress Orientation / Consciousness: awake, oriented to person, oriented to place and oriented to time HEENT normocephalic Mouth: dry mucous membranes Eyes PERRL, EOMs intact bilaterally and conjunctivae normal Neck no lymphadenopathy Resp clear to auscultation bilaterally Auscultation: diminished lung sounds Cardio regular rate, regular rhythm and no murmurs Peripheral Pulses: pulses 2+ throughout GI normal to inspection, nondistended, normoactive bowel sounds, non-tender and non-distended Extremity normal to inspection Skin no rashes or lesions noted Lesions: no lesions Rashes: no rashes Trauma: no lacerations or abrasions Neuro CN's II-XII intact bilaterally, no focal motor deficits, no sensory deficits noted and deep tendon reflexes 2+ bilaterally Psych mental status grossly normal Mood & Affect: depressed Results Lab / Micro Data Result Diagrams: 02/22/22 11:45 02/22/22 11:45 Labs: Laboratory Results - last 24 hr 02/22/22 11:45: WBC 15.4 H, RBC 4.75, Hgb 13.0, Hct 41.3, MCV 86.9, MCH 27.4, MCHC 31.5 L, RDW Std Deviation 45.5 H, RDW Coeff of James 14.1, Plt Count 226, MPV 11.1, Immature Gran % (Auto) 0.300, Neut % (Auto) 89.1 H, Lymph % (Auto) 5.9 L, Saline % (Auto) 3.9, Eos % (Auto) 0.6, Baso % (Auto) 0.2, Absolute Neuts (auto) 13.7 H, Absolute Lymphs (auto) 0.91, Nucleated RBC % 0 02/22/22 11:45: Sodium 141, Potassium 4.1, Chloride 103, Carbon Dioxide 35.0 H, Anion Gap 3 L, BUN 22 H, Creatinine 1.19, Estim Creat Clear Calc 65.60, Est GFR (MDRD) Af Amer 79, Est GFR (MDRD) Non-Af 66, BUN/Creatinine Ratio 18.5, Glucose 148 H, Calcium 9.3 02/22/22 11:45: Lactic Acid 1.9 02/22/22 11:45: Urine Color Yellow, Urine Clarity Clear, Urine pH 5.0, Ur Specific H[place]man 1.020, Urine Protein 100 H, Urine Glucose (UA) Normal, Urine Ketones Negative, Urine Occult Blood 25 H, Urine Nitrite Negative, Urine Bilirubin Negative, Urine Urobilinogen Normal, Ur Leukocyte Esterase Negative, Urine RBC 0 SEEN, Urine WBC 0 SEEN, Ur Squamous Epith Cells 0 SEEN, Urine Bacteria 0 SEEN, Urine Mucus 0 SEEN Micro: Microbiology 02/22/22 11:50 Nasal Secretion SARS-CoV-2 & FLU Antigen (Rapid) - Final Radiology Impression Chest X-Ray 02/22/22 11:40 IMPRESSION: Bilateral patchy opacities, a nonspecific finding may be secondary to multifocal pneumonia. Electronically Signed: Eryn Wallace MD at 12:49 EDT , Assessment & Plan Assessment/Plan (1) Aspiration pneumonia: PLAN: 1. Aspiration pneumonia with chronic hypoxic respiratory failure-underlying chronic silent aspiration. Speech therapy consult with continued modified diet per speech therapy recommendations. Continue supplement oxygen to maintain O2 at above 90%. Patient wears 3 to 4 L nasal cannula at baseline. IV Zosyn. Albuterol and DuoNeb aerosols. Aspiration precautions. PEG tube in place. 2. Hypertensive urgency-blood pressure 241/111 on admission. Now improved. Continue amlodipine, carvedilol, Lasix, isosorbide, losartan, spironolactone. 3. Chronic COPD-as needed aerosols. 4. Hyperlipidemia-continue statin. 5. Type 2 diabetes mellitus with gastroparesis and [id number] with sliding scale insulin. Continue Lyrica. Continue home insulin regimen. 6. Mood disorder/anxiety/depression-on fluoxetine, buspirone, as needed alprazolam. 7. Obesity-encouraged diet and lifestyle modifications. Patient follows with GI who feels weight loss would help with frequent aspiration as well as GERD. Dietitian consult. 8. Chronic heart failure with preserved ejection fraction-continue Lasix, spironolactone. 9. GERD-continue PPI. DVT prophylaxis-Heparin subcu This patient was seen by PAUL Palencia under the supervision of Dr. Miller. Time spent examining patient, reviewing data and subsequent management of care: 18 Minutes Documented by User: Dr. 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 Bronchiectasis with (acute) exacerbation Cardiology follow-up encounter Chronic cough Chronic respiratory failure with hypoxia COPD (chronic obstructive pulmonary disease) COPD (chronic obstructive pulmonary disease) CPAP (continuous positive airway pressure) dependence Depression Diabetes Essential hypertension Gastric reflux GERD (gastroesophageal reflux disease) High cholesterol History of aspiration pneumonia History of echocardiogram History of edema History of heart attack History of non-ST elevation myocardial infarction (NSTEMI) (08/2016) History of pain when walking History of steroid therapy History of stress test Hypertension Insulin dependent diabetes mellitus Kidney stones Kidney stones Leg pain, right Migraines Mood disorder Non-smoker Non-smoker On home oxygen therapy On home oxygen therapy Peripheral vascular occlusive disease Pneumonia Prostate disease Pulmonary nodule, left Right ankle pain Shortness of breath on exertion Silent aspiration Sleep apnea Type 2 diabetes mellitus Vision loss of left eye Wears glasses Wound of left lower extremity Home Medications acetaminophen 1,000 mg PO QHS PRN PRN 02/11/21 [History Last Taken 09/01/21] aspirin 81 mg tablet,delayed release 81 mg PO DAILY 11/05/21 [History Last Taken 01/09/22] spironolactone 40 mg PO DAILY 11/08/21 [History Last Taken Unknown] Artificial Tears(no-[id number]-mxlu) 2 drp EACH EYE Q1H PRN #0 ml 11/14/21 [Rx Last Taken Unknown] loratadine [Allergy Relief (loratadine)] 10 mg G-TUBE DAILY #0 tab 11/14/21 [Rx Last Taken Unknown] buspirone 7.5 mg tablet 7.5 mg PO TID #90 tab 11/25/21 [Rx Last Taken Unknown] isosorbide mononitrate 30 mg tablet,extended release 24 hr 30 mg PO DAILY #90 tab 11/25/21 [Rx Last Taken 01/12/22 08:00] metoclopramide HCl 5 mg tablet 5 mg PO BID #30 tab 11/25/21 [Rx Last Taken Unknown] nitroglycerin 0.4 mg sublingual tablet 0.4 mg SL Q5M PRN #30 tab 11/25/21 [Rx Last Taken Unknown] trazodone 100 mg tablet 100 mg G-TUBE QHS #90 tab 11/25/21 [Rx Last Taken Unknown] gauze bandage 4 X 4 sponge #1 ea 11/27/21 [Rx Last Taken Unknown] losartan 25 mg tablet 25 mg PO DAILY #90 tab 12/08/21 [Rx Last Taken Unknown] amlodipine 2.5 mg tablet 2.5 mg G-TUBE DAILY #90 tab 01/09/22 [Rx Last Taken 01/12/22 08:00] atorvastatin 80 mg tablet 80 mg PO QHS #90 tab 01/09/22 [Rx Last Taken Unknown] clopidogrel 75 mg tablet 75 mg PO DAILY #90 tab 01/09/22 [Rx Last Taken 01/09/22] finasteride 5 mg tablet 5 mg PO DAILY #90 tab 01/09/22 [Rx Last Taken Unknown] fluoxetine 20 mg capsule 20 mg PO DAILY #90 cap 01/09/22 [Rx Last Taken Unknown] fluoxetine 40 mg capsule 40 mg PO DAILY #90 cap 01/09/22 [Rx Last Taken Unknown] furosemide 40 mg tablet 40 mg PO DAILY #90 tab 01/09/22 [Rx Last Taken Unknown] pregabalin 75 mg capsule 75 mg PO BID #60 cap 01/09/22 [Rx Last Taken 01/12/22 08:00] insulin detemir U-100 100 unit/mL (3 mL) subcutaneous pen 34 unit SUBCUT QHS 90 Days #30.6 ml 01/19/22 [Rx Last Taken Unknown] insulin lispro 100 unit/mL subcutaneous pen 1 sliding scale dose SUBCUT .5 times daily ml 01/27/22 [History Last Taken Unknown] albuterol sulfate 90 mcg/actuation aerosol inhaler 2 puff INHALATION Q4H PRN #8.5 g 02/04/22 [Rx Last Taken Unknown] pantoprazole 20 mg tablet,delayed release 20 mg PO DAILY tab 02/04/22 [History Last Taken Unknown] carvedilol 12.5 mg tablet 12.5 mg PO BID #180 tab 02/05/22 [Rx Last Taken Unkn own] alprazolam 0.5 mg tablet 0.5 mg PO BID PRN #60 tab 02/06/22 [Rx Last Taken Unknown] insulin lispro 10 unit SUBCUT 5X/DAY 02/22/22 [History Last Taken Unknown] Allergy/AdvReac Type Severity Reaction Status Date / Time allopurinol AdvReac Vomiting Verified 02/22/22 11:33 Influenza Virus Vaccines AdvReac Vomiting Verified 02/22/22 11:33 pneumococcal vaccine AdvReac Vomiting Verified 02/22/22 11:33 Family History (Reviewed 02/22/22 @ 14:29 by Sheri Vogt IMPLEMENTATION SPECIALIST PAYROLL, IMPLEMENTATION SPECIALIST PAYROLL-C) Mother Diabetes Heart disease CHF Father Heart disease OR/CAD Myocardial infarction Surgical History (Reviewed 02/22/22 @ 14:29 by Sheri Vogt IMPLEMENTATION SPECIALIST PAYROLL, IMPLEMENTATION SPECIALIST PA[employer]ROLL-C) H/O lithotripsy History of angioplasty of peripheral vessel (2016) History of angioplasty of peripheral vessel History of ankle surgery History of cardiac catheterization History of coronary artery stent placement (08/2016) History of coronary artery stent placement History of esophagogastroduodenoscopy (EGD) History of left heart catheterization (11/15/17) History of thyroid surgery Hx of lithotripsy Hx of surgery to heart and great vessels, presenting hazards to health Hx of surgical procedure Hx of thyroidectomy Hx of toe surgery Hx of toe surgery PEG (percutaneous endoscopic gastrostomy) status Social History (Reviewed 02/22/22 @ 14:29 by Sheri Vogt IMPLEMENTATION SPECIALIST PAYROLL, IMPLEMENTATION SPECIALIST PAYROLL-C) household members: spouse housing: apartment Smoking Status: Never smoker alcohol intake: never substance use type: does not use Results Lab / Micro Data Result Diagrams: 02/22/22 11:45 02/22/22 11:45 Charges/Coding Addendum Addendum: Patient was seen and examined independently of Sheri Vogt, he was brought to the emergency room by his for evaluation of chills and fever at home, patient is on chronic oxygen at home according to the at 3 to 4 L/min. On examination he appeared in good health and spirits. Vital signs as documented. Skin warm and dry and without overt rashes. Neck without JVD, neck was supple, trachea midline, thyroid was normal. Lungs-scattered inspiratory rales were noted over both lungs, breath sounds are diminished bilaterally. Heart exam notable for regular rhythm, normal sounds and absence of murmurs, rubs or gallops. Abdomen unremarkable and without evidence of organomegaly, masses, or abdominal aortic enlargement. Bowel sounds are present, abdomen is not distended. A small feeding tube is in place over the mid abdomen. E xtremities nonedematous, no cyanosis was noted, no clubbing was noted. Neuro: Cranial nerves II through XII are grossly intact, no focal motor deficits were noted, sensation to light touch and pinprick intact, motor exam 5/5 throughout. Psych: Patient is alert and oriented x3, he does not appear anxious or depressed, he does not appear agitated. Work-up in the emergency room included a CBC which showed an elevated white blood cell count of 15.4, patient had a low-grade temp at 99.2 in the ER, chemistry panel was remarkable for glucose of 148 and BUN of 22. Chest x-ray showed bilateral patchy opacities. Impression #1 aspiration pneumonia-patient will be admitted to [facility] 3, he will be maintained on IV Zosyn, he will receive aerosol treatments. #2 chronic hypoxic respiratory failure-patient appears to be at his home oxygen requirement of 4 L, pulse ox will be monitored #3 oropharyngeal dysphagia-according to the , patient is on a pur?ed diet with tube feedings, he is on thin liquids, I will have speech therapy see the patient #4 chronic obstructive pulmonary disease-patient will remain on DuoNeb aerosols #5 chronic anxiety and depression-patient will remain on his home medications #6 type 2 diabetes-patient will remain on his home medications, sliding scale insulin will be used along with fingerstick blood sugars. #7 coronary artery disease-patient will remain on his present medications #8 chronic diastolic congestive heart failure-patient is to continue on his home medication I have reviewed Sheri Vogt's history and physical including her medical assessment and plan of care and endorse it with the above additions. Total clinical time spent by myself addressing the patient's issues, reviewing the patient's medical data, and communicating with the patient's caregivers: 55 minutes Visit Charges Inpatient E&M: 49674 Init Hosp L3
--- NOTE | 2022-02-22 14:18 | ED.RN ---
unable to complete admission disposition d/t physician in chart
[2022-02-22 16:10] LABS: Bedside Glucose 192 mg/dL (74-106)
[2022-02-22 21:01] LABS: Bedside Glucose 145 mg/dL (74-106)
[2022-02-22] MEDS: Heparin Injection (Vial) 5,000 UNIT/ML VIAL 5000 UNIT SC (21:58)
[2022-02-22] MEDS: Piperacil/Tazobactam 3.375 GM/50 ML ML IV (21:58)
[2022-02-23 01:37] VITALS: BP 175/81; PULSE 81; RESP 20; TEMP 37.1; O2SAT 100
[2022-02-23 01:41] LABS: Bedside Glucose 165 mg/dL (74-106)
[2022-02-23 02:06] VITALS: BP 181/88; PULSE 64
[2022-02-23] MEDS: hydrALAZINE 20 MG/ML Vial 10 MG IV (02:06)
[2022-02-23] MEDS: Piperacil/Tazobactam 3.375 GM/50 ML ML IV (05:03)
[2022-02-23 05:07] VITALS: BP 151/95; PULSE 69; RESP 18; TEMP 36.7; O2SAT 99
[2022-02-23 06:30] LABS: Absolute Lymphocyte Count 1.67 X10^3/uL (0.83-4.51); Absolute Neutrophil Count 12.9 X10^3/uL (2.0-7.7); Basophil# 0.05 X10^3/uL; Basophil% 0.3 % (0-1); Eosinophil# 0.04 X10^3/uL; Eosinophils% 0.3 % (0-5); Hematocrit 34.5 % (40-54); Hemoglobin 11.4 g/dL (13.0-16.5); Lymphocyte # 1.67 X10^3/ul (0.83-4.51); Lymphocyte % 10.6 % (19-41); Mean Corpuscular Hgb 27.7 pg (27.0-32.0); Mean Corpuscular Volume 83.9 fL (80-94); Mean Platelet Vol. 11.3 fl (6.2-12.0); Monocyte# 0.98 X10^3/uL; Monocyte% 6.2 % (0-10); NRBC Flagged by Analyzer 0 % (0-5); Neutrophil # 12.92 X10^3/uL (2.7-7.7); Neutrophil % 82.1 % (47-70); Platelet Count 187 K/mm3 (150-450); RBC Distribution Width CV 14.4 % (11.6-14.6); RBC Distribution Width SD 44.2 fl (35.1-43.9); Red Blood Count 4.11 M/mm3 (4.6-6.2); White Blood Count 15.7 K/mm3 (4.4-11.0)
[2022-02-23 06:50] VITALS: O2SAT 98
[2022-02-23] MEDS: Insulin Lispro 100 UNIT/ML INSULN.PEN SC (07:02)
[2022-02-23 07:06] LABS: Bedside Glucose 168 mg/dL (74-106)
[2022-02-23 10:04] VITALS: BP 176/69; PULSE 61; RESP 17; TEMP 36.9; O2SAT 97
--- NOTE | 2022-02-23 10:13 | DCINST_ITS ---
Discharge Instructions Diet Discharge Diet: - (Modified diet per speech therapy recommendations. Print recommendations for patient at [place]. ) Activity Discharge Activity: Return to Normal Activity Dressing / Incision Call your doctor if you observe: Fever of 101 or Higher, Shortness of breath, Dizziness and Chest pain Follow Up Care Test Results: Test results from this visit will be discussed in further detail at your follow-up appointment, if applicable. Discharge Plan Admission Admit Date/Time: 02/22/22 13:59 Primary Reason for Your Visit: Aspiration pneumonia Attending Provider: Alicia Larkin Primary Care Provider: Doretha Brown Discharge Orders/Prescriptions Prescriptions: New losartan 50 mg Tablet 50 mg PO DAILY 30 Days Qty: 30 RF: 0 amlodipine 5 mg Tablet 5 mg G-tube DAILY 30 Days Qty: 30 RF: 0 amoxicillin-pot clavulanate 400-57 mg/5 mL suspension for reconstitution 10 ml feeding tube BID 7 Days Qty: 140 RF: 0 Continued aspirin [Adult Aspirin Regimen] 81 mg tablet,delayed release (DR/EC) 81 mg PO DAILY RF: 0 atorvastatin 80 mg tablet 80 mg PO QHS Qty: 90 RF: 2 fluoxetine 20 mg capsule 20 mg PO DAILY Qty: 90 RF: 2 fluoxetine 40 mg capsule 40 mg PO DAILY Qty: 90 RF: 2 furosemide 40 mg tablet 40 mg PO DAILY Qty: 90 RF: 3 clopidogrel 75 mg tablet 75 mg PO DAILY Qty: 90 RF: 3 finasteride 5 mg tablet 5 mg PO DAILY Qty: 90 RF: 3 pregabalin [Lyrica] 75 mg capsule 75 mg PO BID Qty: 60 RF: 1 alprazolam 0.5 mg tablet 0.5 mg PO BID PRN (Reason: anxiety) Qty: 60 RF: 0 pantoprazole 20 mg tablet,delayed release (DR/EC) 20 mg PO DAILY RF: 0 albuterol sulfate 90 mcg/actuation HFA aerosol inhaler 2 puff inhalation Q4H PRN (Reason: shortness of breath or wheezing) Qty: 8.5 RF: 3 carvedilol 12.5 mg tablet 12.5 mg PO BID Qty: 180 RF: 3 insulin lispro 100 unit/mL insulin pen 1 sliding scale dose subcut .5 times daily RF: 0 acetaminophen 500 MG tablet 1,000 mg PO QHS PRN PRN (Reason: Pain 1-10 Or Fever) RF: 0 spironolactone 25 mg tablet 40 mg PO DAILY RF: 0 loratadine [Allergy Relief (loratadine)] 10 mg Tablet 10 mg G-tube DAILY Qty: 0 RF: 0 Artificial Tears([id number]-[id number]) 1-0.2-0.2 % Drops 2 drp EACH EYE Q1H PRN (Reason: DRY EYES) Qty: 0 RF: 0 insulin lispro 100 unit/mL Insulin Pen 10 unit SUBCUT 5X/DAY RF: 0 Vital AF 1.2 Will 0.08 gram- 1.2 kcal/mL Liquid 90 ml feeding tube TID RF: 0 buspirone 7.5 mg tablet 7.5 mg PO TID Qty: 90 RF: 0 isosorbide mononitrate 30 mg tablet extended release 24 hr 30 mg PO DAILY Qty: 90 RF: 0 metoclopramide HCl [Reglan] 5 mg tablet 5 mg PO BID Qty: 30 RF: 0 nitroglycerin 0.4 mg tablet, sublingual 0.4 mg SL Q5M PRN (Reason: Chest Pain) Qty: 30 RF: 0 trazodone 100 mg tablet 100 mg G-tube QHS Qty: 90 RF: 0 (DME) Curity Gauze 4 X 4 sponge See Rx Instructions .ROUTE .MEDSUPPLY Qty: 1 RF: 0 insulin detemir U-100 100 unit/mL (3 mL) insulin pen 34 unit subcut QHS 90 Days Qty: 30.6 RF: 2 Discontinued losartan 25 mg tablet 25 mg PO DAILY Qty: 90 RF: 2 amlodipine [Norvasc] 2.5 mg tablet 2.5 mg G-tube DAILY Qty: 90 RF: 3 Referrals / Follow Up: Doretha Brown MD [Primary Care Provider] - In 1 Week Sheila De La O NP, USER EXPERIENCE MANAGER-C [Nurse Practitioner] - 03/06/22 (As scheduled) Disposition Disposition (needs filled in before D/C Order can be placed): Home, Self Care
--- NOTE | 2022-02-23 10:31 | PCM.DC.SUM ---
Documented by User: Sheri Vogt NP, LUNCHROOM ATTENDANT-C 02/23/22 10:38 Providers Date of Admission: 02/22/22 Date of Discharge: 02/23/22 Primary Care Physician: Dr. Doretha Brown MD Reason For Visit: ASPIRATION PNEUMONIA Diagnosis Discharge Diagnosis (1) Aspiration pneumonia: Status: Acute Code(s): J69.0 - Pneumonitis due to inhalation of food and vomit Medications at Discharge Home Medications acetaminophen 1,000 mg PO QHS PRN PRN 02/11/21 aspirin 81 mg tablet,delayed release 81 mg PO DAILY 11/05/21 spironolactone 40 mg PO DAILY 11/08/21 Artificial Tears(vz-jioa-fgyy) 2 drp EACH EYE Q1H PRN #0 ml 11/14/21 loratadine [Allergy Relief (loratadine)] 10 mg G-TUBE DAILY #0 tab 11/14/21 buspirone 7.5 mg tablet 7.5 mg PO TID #90 tab 11/25/21 isosorbide mononitrate 30 mg tablet,extended release 24 hr 30 mg PO DAILY #90 tab 11/25/21 metoclopramide HCl 5 mg tablet 5 mg PO BID #30 tab 11/25/21 nitroglycerin 0.4 mg sublingual tablet 0.4 mg SL Q5M PRN #30 tab 11/25/21 trazodone 100 mg tablet 100 mg G-TUBE QHS #90 tab 11/25/21 gauze bandage 4 X 4 sponge #1 ea 11/27/21 atorvastatin 80 mg tablet 80 mg PO QHS #90 tab 01/09/22 clopidogrel 75 mg tablet 75 mg PO DAILY #90 tab 01/09/22 finasteride 5 mg tablet 5 mg PO DAILY #90 tab 01/09/22 fluoxetine 20 mg capsule 20 mg PO DAILY #90 cap 01/09/22 fluoxetine 40 mg capsule 40 mg PO DAILY #90 cap 01/09/22 furosemide 40 mg tablet 40 mg PO DAILY #90 tab 01/09/22 pregabalin 75 mg capsule 75 mg PO BID #60 cap 01/09/22 insulin detemir U-100 100 unit/mL (3 mL) subcutaneous pen 34 unit SUBCUT QHS 90 Days #30.6 ml 01/19/22 insulin lispro 100 unit/mL subcutaneous pen 1 sliding scale dose SUBCUT .5 times daily ml 01/27/22 albuterol sulfate 90 mcg/actuation aerosol inhaler 2 puff INHALATION Q4H PRN #8.5 g 02/04/22 pantoprazole 20 mg tablet,delayed release 20 mg PO DAILY tab 02/04/22 carvedilol 12.5 mg tablet 12.5 mg PO BID #180 tab 02/05/22 alprazolam 0.5 mg tablet 0.5 mg PO BID PRN #60 tab 02/06/22 Vital AF 1.2 Will 90 ml FEEDING TUBE TID 02/22/22 insulin lispro 10 unit SUBCUT 5X/DAY 02/22/22 amlodipine 5 mg G-TUBE DAILY 30 Days #30 tab 02/23/22 amoxicillin-pot clavulanate 10 ml FEEDING TUBE BID 7 Days #140 ml 02/23/22 losartan 50 mg PO DAILY 30 Days #30 tab 02/23/22 Hospital Course Operations None Procedures None Summary of Care Provided Hospital Course: Patient is a 62-year-old male admitted 02/22/2022 due to cough, fever. 1. Aspiration pneumonia with chronic hypoxic respiratory failure-underlying chronic silent aspiration/oropharyngeal dysphagia. Speech therapy consult with continued modified diet per speech therapy recommendations. Continue supplement oxygen to maintain O2 at above 90%. Patient wears 3 to 4 L nasal cannula at baseline. IV Zosyn during admission with transition to Augmentin at discharge to complete course. PEG tube in place. Follow-up with PCP in 1 week and GI as scheduled. 2. Hypertensive urgency-improved. Continue carvedilol, Lasix, isosorbide, spironolactone. Amlodipine increased to 5 mg daily and losartan increased to 50 mg daily. 3. Chronic COPD-as needed aerosols. 4. Hyperlipidemia-continue statin. 5. Type 2 diabetes mellitus with gastroparesis and polyneuropathy-Continue Lyrica. Continue home insulin regimen. 6. Mood disorder/anxiety/depression-on fluoxetine, buspirone, as needed alprazolam. 7. Obesity-encouraged diet and lifestyle modifications. Patient follows with GI who feels weight loss would help with frequent aspiration as well as GERD. Dietitian consult. 8. Chronic heart failure with preserved ejection fraction-continue Lasix, spironolactone. 9. GERD-continue PPI. Physical Exam Const alert, oriented x3 and no apparent distress Orientation / Consciousness: awake, oriented to person, oriented to place and oriented to time HEENT normocephalic Mouth: dry mucous membranes Eyes PERRL, EOMs intact bilaterally and conjunctivae normal Neck no lymphadenopathy Resp clear to auscultation bilaterally Auscultation: diminished lung sounds Cardio regular rate, regular rhythm and no murmurs Peripheral Pulses: pulses 2+ throughout GI normal to inspection, nondistended, normoactive bowel sounds, non-tender and non-distended Extremity normal to inspection Skin no rashes or lesions noted Lesions: no lesions Rashes: no rashes Trauma: no lacerations or abrasions Neuro CN's II-XII intact bilaterally, no focal motor deficits, no sensory deficits noted and deep tendon reflexes 2+ bilaterally Psych mental status grossly normal Mood & Affect: flat affect Patient seen and examined prior to discharge. Physical assessment as noted above. Patient is stable for discharge with follow up recommendations as noted above. This patient was seen by PAUL Palencia under the supervision of Dr. Larkin. Weight / BMI Weight Weight: 272 lb 9.6 oz Body Mass Index (BMI) 39.1 ABG / Lab / Microbiology Data Result Diagrams: 02/23/22 05:50 02/22/22 11:45 Laboratory: Laboratory Results - last 24 hr 02/22/22 11:45: WBC 15.4 H, RBC 4.75, Hgb 13.0, Hct 41.3, MCV 86.9, MCH 27.4, MCHC 31.5 L, RDW Std Deviation 45.5 H, RDW Coeff of James 14.1, Plt Count 226, MPV 11.1, Immature Gran % (Auto) 0.300, Neut % (Auto) 89.1 H, Lymph % (Auto) 5.9 L, Hemphill % (Auto) 3.9, Eos % (Auto) 0.6, Baso % (Auto) 0.2, Absolute Neuts (auto) 13.7 H, Absolute Lymphs (auto) 0.91, Nucleated RBC % 0 02/22/22 11:45: Sodium 141, Potassium 4.1, Chloride 103, Carbon Dioxide 35.0 H, Anion Gap 3 L, BUN 22 H, Creatinine 1.19, Estim Creat Clear Calc 65.60, Est GFR (MDRD) Af Amer 79, Est GFR (MDRD) Non-Af 66, BUN/Creatinine Ratio 18.5, Glucose 148 H, Calcium 9.3 02/22/22 11:45: Lactic Acid 1.9 02/22/22 11:45: Urine Color Yellow, Urine Clarity Clear, Urine pH 5.0, Ur Specific Elroy 1.020, Urine Protein 100 H, Urine Glucose (UA) Normal, Urine Ketones Negative, Urine Occult Blood 25 H, Urine Nitrite Negative, Urine Bilirubin Negative, Urine Urobilinogen Normal, Ur Leukocyte Esterase Negative, Urine RBC 0 SEEN, Urine WBC 0 SEEN, Ur Squamous Epith Cells 0 SEEN, Urine Bacteria 0 SEEN, Urine Mucus 0 SEEN 02/22/22 15:59: POC Glucose 192 H 02/22/22 20:25: POC Glucose 145 H 02/23/22 01:33: POC Glucose 165 H 02/23/22 05:50: WBC 15.7 H, RBC 4.11 L, Hgb 11.4 L, Hct 34.5 L, MCV 83.9, MCH 27.7, MCHC 33.0, RDW Std Deviation 44.2 H, RDW Coeff of James 14.4, Plt Count 187, MPV 11.3, Immature Gran % (Auto) 0.500, Neut % (Auto) 82.1 H, Lymph % (Auto) 10.6 L, Hemphill % (Auto) 6.2, Eos % (Auto) 0.3, Baso % (Auto) 0.3, Absolute Neuts (auto) 12.9 H, Absolute Lymphs (auto) 1.67, Nucleated RBC % 0 02/23/22 06:58: POC Glucose 168 H Microbiology: Microbiology 02/22/22 11:50 Nasal Secretion SARS-CoV-2 & FLU Antigen (Rapid) - Final Radiography Diagnostic Testing: Radiology Impression Chest X-Ray 02/22/22 11:40 IMPRESSION: Bilateral patchy opacities, a nonspecific finding may be secondary to multifocal pneumonia. Electronically Signed: Eryn Wallace MD at 12:49 EDT , D/C Instructions Discharge Diet: - (Modified diet per speech therapy recommendations. Print recommendations for patient at [place]. ) Call your doctor if you observe: Fever of 101 or Higher, Shortness of breath, Dizziness and Chest pain Meaningful Use Info Meaningful Use Diagnoses (Choose all that apply): None applicable Discharge Plan Admission Admit Date/Time: 02/22/22 13:59 Primary Reason for Your Visit: Aspiration pneumonia Attending Provider: Alicia Larkin Primary Care Provider: Doretha Brown Discharge Orders/Prescriptions Prescriptions: New losartan 50 mg Tablet 50 mg PO DAILY 30 Days Qty: 30 RF: 0 amlodipine 5 mg Tablet 5 mg G-tube DAILY 30 Days Qty: 30 RF: 0 amoxicillin-pot clavulanate 400-57 mg/5 mL suspension for reconstitution 10 ml feeding tube BID 7 Days Qty: 140 RF: 0 Continued aspirin [Adult Aspirin Regimen] 81 mg tablet,delayed release (DR/EC) 81 mg PO DAILY RF: 0 atorvastatin 80 mg tablet 80 mg PO QHS Qty: 90 RF: 2 fluoxetine 20 mg capsule 20 mg PO DAILY Qty: 90 RF: 2 fluoxetine 40 mg capsule 40 mg PO DAILY Qty: 90 RF: 2 furosemide 40 mg tablet 40 mg PO DAILY Qty: 90 RF: 3 clopidogrel 75 mg tablet 75 mg PO DAILY Qty: 90 RF: 3 finasteride 5 mg tablet 5 mg PO DAILY Qty: 90 RF: 3 pregabalin [Lyrica] 75 mg capsule 75 mg PO BID Qty: 60 RF: 1 alprazolam 0.5 mg tablet 0.5 mg PO BID PRN (Reason: anxiety) Qty: 60 RF: 0 pantoprazole 20 mg tablet,delayed release (DR/EC) 20 mg PO DAILY RF: 0 albuterol sulfate 90 mcg/actuation HFA aerosol inhaler 2 puff inhalation Q4H PRN (Reason: shortness of breath or wheezing) Qty: 8.5 RF: 3 carvedilol 12.5 mg tablet 12.5 mg PO BID Qty: 180 RF: 3 insulin lispro 100 unit/mL insulin pen 1 sliding scale dose subcut .5 times daily RF: 0 acetaminophen 500 MG tablet 1,000 mg PO QHS PRN PRN (Reason: Pain 1-10 Or Fever) RF: 0 spironolactone 25 mg tablet 40 mg PO DAILY RF: 0 loratadine [Allergy Relief (loratadine)] 10 mg Tablet 10 mg G-tube DAILY Qty: 0 RF: 0 Artificial Tears([id number]) 1-0.2-0.2 % Drops 2 drp EACH EYE Q1H PRN (Reason: DRY EYES) Qty: 0 RF: 0 insulin lispro 100 unit/mL Insulin Pen 10 unit SUBCUT 5X/DAY RF: 0 Vital AF 1.2 Will 0.08 gram- 1.2 kcal/mL Liquid 90 ml feeding tube TID RF: 0 buspirone 7.5 mg tablet 7.5 mg PO TID Qty: 90 RF: 0 isosorbide mononitrate 30 mg tablet extended release 24 hr 30 mg PO DAILY Qty: 90 RF: 0 metoclopramide HCl [Reglan] 5 mg tablet 5 mg PO BID Qty: 30 RF: 0 nitroglycerin 0.4 mg tablet, sublingual 0.4 mg SL Q5M PRN (Reason: Chest Pain) Qty: 30 RF: 0 trazodone 100 mg tablet 100 mg G-tube QHS Qty: 90 RF: 0 (DME) Curity Gauze 4 X 4 sponge See Rx Instructions .ROUTE .MEDSUPPLY Qty: 1 RF: 0 insulin detemir U-100 100 unit/mL (3 mL) insulin pen 34 unit subcut QHS 90 Days Qty: 30.6 RF: 2 Discontinued losartan 25 mg tablet 25 mg PO DAILY Qty: 90 RF: 2 amlodipine [Norvasc] 2.5 mg tablet 2.5 mg G-tube DAILY Qty: 90 RF: 3 Referrals / Follow Up: Doretha Brown MD [Primary Care Provider] - In 1 Week Sheila De La O NP, LUNCHROOM ATTENDANT-C [Nurse Practitioner] - 03/06/22 1:00 pm (As scheduled) Disposition Disposition (needs filled in before D/C Order can be placed): Home, Self Care Documented by User: Dr. Alicia Larkin DO 02/23/22 12:32 Providers Date of Admission: 02/22/22 Date of Discharge: 02/23/22 Reason For Visit: ASPIRATION PNEUMONIA Medications at Discharge Home Medications acetaminophen 1,000 mg PO QHS PRN PRN 02/11/21 aspirin 81 mg tablet,delayed release 81 mg PO DAILY 11/05/21 spironolactone 40 mg PO DAILY 11/08/21 Artificial Tears(ql-ebaf-[id number]) 2 drp EACH EYE Q1H PRN #0 ml 11/14/21 loratadine [Allergy Relief (loratadine)] 10 mg G-TUBE DAILY #0 tab 11/14/21 buspirone 7.5 mg tablet 7.5 mg PO TID #90 tab 11/25/21 isosorbide mononitrate 30 mg tablet,extended release 24 hr 30 mg PO DAILY #90 tab 11/25/21 metoclopramide HCl 5 mg tablet 5 mg PO BID #30 tab 11/25/21 nitroglycerin 0.4 mg sublingual tablet 0.4 mg SL Q5M PRN #30 tab 11/25/21 trazodone 100 mg tablet 100 mg G-TUBE QHS #90 tab 11/25/21 gauze bandage 4 X 4 sponge #1 ea 11/27/21 atorvastatin 80 mg tablet 80 mg PO QHS #90 tab 01/09/22 clopidogrel 75 mg tablet 75 mg PO DAILY #90 tab 01/09/22 finasteride 5 mg tablet 5 mg PO DAILY #90 tab 01/09/22 fluoxetine 20 mg capsule 20 mg PO DAILY #90 cap 01/09/22 fluoxetine 40 mg capsule 40 mg PO DAILY #90 cap 01/09/22 furosemide 40 mg tablet 40 mg PO DAILY #90 tab 01/09/22 pregabalin 75 mg capsule 75 mg PO BID #60 cap 01/09/22 insulin detemir U-100 100 unit/mL (3 mL) subcutaneous pen 34 unit SUBCUT QHS 90 Days #30.6 ml 01/19/22 insulin lispro 100 unit/mL subcutaneous pen 1 sliding scale dose SUBCUT .5 times daily ml 01/27/22 albuterol sulfate 90 mcg/actuation aerosol inhaler 2 puff INHALATION Q4H PRN #8.5 g 02/04/22 pantoprazole 20 mg tablet,delayed release 20 mg PO DAILY tab 02/04/22 carvedilol 12.5 mg tablet 12.5 mg PO BID #180 tab 02/05/22 alprazolam 0.5 mg tablet 0.5 mg PO BID PRN #60 tab 02/06/22 Vital AF 1.2 Will 90 ml FEEDING TUBE TID 02/22/22 insulin lispro 10 unit SUBCUT 5X/DAY 02/22/22 amlodipine 5 mg G-TUBE DAILY 30 Days #30 tab 02/23/22 amoxicillin-pot clavulanate 10 ml FEEDING TUBE BID 7 Days #140 ml 02/23/22 losartan 50 mg PO DAILY 30 Days #30 tab 02/23/22 Hospital Course Operations None Procedures None Summary of Care Provided Minutes Spent on Discharge: 36 Hospital Course: This patient was seen in conjunction with Sheri Vogt NP. The following is representation my independent history and physical examination. Please see below for addendum the above. Mr. Linda is a 62-year-old white male who presented to the emergency department [facility] on 02/22/2022 with a chief complaint of cough and shortness of breath. The patient is well-known to the hospitalist service secondary to recurrent admissions for aspiration. He has since had a PEG tube and then a Luigi button placed for tube feeds and indicates he has been compliant with his home diet with regards to his restrictions for his recurrent aspirations. The patient indicated on presentation that he developed a low-grade fever and has had some chills he also had a cough that was predominantly nonproductive but states it did make him vomit. He is on 3 to 4 L of chronic supplemental oxygen at home and remained on this amount of oxygen for his entire hospitalization. His did indicate that he appeared short of breath from her perspective upon presentation but again they did indicate he was on a modified diet for his chronic silent aspiration and he had been compliant with this. He had a low-grade temperature in the emergency department of 100.4. The patient was admitted to the medical floor and placed on IV Zosyn. The following morning he indicated he was feeling much better and back to his baseline. He was reevaluated by speech therapy and they recommended a minced moist diet with thin liquids and strategies to prevent aspiration were reviewed with the patient again. He is following up as an outpatient with gastroenterology for his chronic aspiration issues and already has follow-up appointment with this. He was transitioned to Augmentin at discharge and is to complete a 7-day course of antibiotics. Chest x-ray was obtained and reviewed previous chest x-rays and there did not appear to be any new infiltrates. Blood cultures were drawn upon presentation are pending at discharge. I do anticipate that these will remain negative since the patient does not appear toxic whatsoever. He is to complete his above course of antibiotics, maintain his aspiration precautions with modified diet per speech therapy and continue tube feeds as directed, follow-up with pulmonary medicine as scheduled/GI medicine as scheduled. His antibiotic prescription was faxed to his pharmacy and he was discharged home in stable condition on 02/23/2022. Discharge diagnoses: Aspiration pneumonia Chronic hypoxic respiratory failure Oral pharyngeal dysphagia-chronic Hypertensive urgency-resolved COPD Hyperlipidemia DM-2 Gastroparesis Diabetic neuropathy Anxiety Depression Obesity Compensated diastolic heart failure GERD Physical Exam Const alert, oriented x3 and no apparent distress Constitutional Narrative: Obese white male sitting up in bed, talking on the telephone, appears older than stated age, nontoxic and currently on his baseline oxygen General Appearance: cooperative, comfortable, well kempt and well developed Orientation / Consciousness: awake Nutritional Appearance: obese HEENT normocephalic, head/scalp atraumatic, hearing grossly normal bilaterally and moist oral mucous membranes HEENT Narrative: No thrush, Mallampati 3 Eyes PERRL, EOMs intact bilaterally and conjunctivae normal Neck no lymphadenopathy, supple and no JVD Neck Narrative: Trachea midline, no thyroid enlargement Resp normal respiratory effort, no retractions, no use of accessory muscles and clear to auscultation bilaterally Resp Narrative: Diminished but clear Auscultation: Negative for crackles, rales, rhonchi or wheezes Cardio regular rate, regular rhythm, S1 normal heart sound, S2 normal heart sound, no murmurs, no rub, no gallops, no clicks and no JVD GI normal to inspection, nondistended, normoactive bowel sounds, soft to palpation, non-tender and non-distended GI Narrative: Luigi button in place left upper quadrant appears clean and dry Extremity no clubbing, cyanosis or edema Extremity Narrative: Pedal pulses are 2+ Skin no rashes or lesions noted, no wounds, skin turgor normal and no jaundice Neuro oriented x3, CN's II-XII intact bilaterally, moves all extremities and no focal motor deficits Sensorium / Orientation: awake and alert Speech: speech normal Motor Exam: strength 5/5 throughout Psych affect normal Psych Narrative: Pleasant ABG / Lab / Microbiology Data Result Diagrams: 02/23/22 05:50 02/22/22 11:45 D/C Instructions Discharge Diet: - (moist minced with thin liquids) Discharge Activity: Return to Normal Activity Discharge Plan Admission Admit Date/Time: 02/22/22 13:59 Primary Reason for Your Visit: Aspiration pneumonia Attending Provider: Alicia Larkin Primary Care Provider: Doretha Brown Discharge Orders/Prescriptions Prescriptions: New losartan 50 mg Tablet 50 mg PO DAILY 30 Days Qty: 30 RF: 0 amlodipine 5 mg Tablet 5 mg G-tube DAILY 30 Days Qty: 30 RF: 0 amoxicillin-pot clavulanate 400-57 mg/5 mL suspension for reconstitution 10 ml feeding tube BID 7 Days Qty: 140 RF: 0 Continued aspirin [Adult Aspirin Regimen] 81 mg tablet,delayed release (DR/EC) 81 mg PO DAILY RF: 0 atorvastatin 80 mg tablet 80 mg PO QHS Qty: 90 RF: 2 fluoxetine 20 mg capsule 20 mg PO DAILY Qty: 90 RF: 2 fluoxetine 40 mg capsule 40 mg PO DAILY Qty: 90 RF: 2 furosemide 40 mg tablet 40 mg PO DAILY Qty: 90 RF: 3 clopidogrel 75 mg tablet 75 mg PO DAILY Qty: 90 RF: 3 finasteride 5 mg tablet 5 mg PO DAILY Qty: 90 RF: 3 pregabalin [Lyrica] 75 mg capsule 75 mg PO BID Qty: 60 RF: 1 alprazolam 0.5 mg tablet 0.5 mg PO BID PRN (Reason: anxiety) Qty: 60 RF: 0 pantoprazole 20 mg tablet,delayed release (DR/EC) 20 mg PO DAILY RF: 0 albuterol sulfate 90 mcg/actuation HFA aerosol inhaler 2 puff inhalation Q4H PRN (Reason: shortness of breath or wheezing) Qty: 8.5 RF: 3 carvedilol 12.5 mg tablet 12.5 mg PO BID Qty: 180 RF: 3 insulin lispro 100 unit/mL insulin pen 1 sliding scale dose subcut .5 times daily RF: 0 acetaminophen 500 MG tablet 1,000 mg PO QHS PRN PRN (Reason: Pain 1-10 Or Fever) RF: 0 spironolactone 25 mg tablet 40 mg PO DAILY RF: 0 loratadine [Allergy Relief (loratadine)] 10 mg Tablet 10 mg G-tube DAILY Qty: 0 RF: 0 Artificial Tears(ol-lbxb-fppn) 1-0.2-0.2 % Drops 2 drp EACH EYE Q1H PRN (Reason: DRY EYES) Qty: 0 RF: 0 insulin lispro 100 unit/mL Insulin Pen 10 unit SUBCUT 5X/DAY RF: 0 Vital AF 1.2 Will 0.08 gram- 1.2 kcal/mL Liquid 90 ml feeding tube TID RF: 0 buspirone 7.5 mg tablet 7.5 mg PO TID Qty: 90 RF: 0 isosorbide mononitrate 30 mg tablet extended release 24 hr 30 mg PO DAILY Qty: 90 RF: 0 metoclopramide HCl [Reglan] 5 mg tablet 5 mg PO BID Qty: 30 RF: 0 nitroglycerin 0.4 mg tablet, sublingual 0.4 mg SL Q5M PRN (Reason: Chest Pain) Qty: 30 RF: 0 trazodone 100 mg tablet 100 mg G-tube QHS Qty: 90 RF: 0 (DME) Curity Gauze 4 X 4 sponge See Rx Instructions .ROUTE .MEDSUPPLY Qty: 1 RF: 0 insulin detemir U-100 100 unit/mL (3 mL) insulin pen 34 unit subcut QHS 90 Days Qty: 30.6 RF: 2 Discontinued losartan 25 mg tablet 25 mg PO DAILY Qty: 90 RF: 2 amlodipine [Norvasc] 2.5 mg tablet 2.5 mg G-tube DAILY Qty: 90 RF: 3 Referrals / Follow Up: Doretha Brown MD [Primary Care Provider] - In 1 Week Sheila De La O LUNCHROOM ATTENDANT, LUNCHROOM ATTENDANT-C [Nurse Practitioner] - 03/06/22 1:00 pm (As scheduled) Disposition Disposition (needs filled in before D/C Order can be placed): Home, Self Care Charges/Coding Visit Charges Inpatient E&M: 79568 Disch Hosp
--- NOTE | 2022-02-23 11:18 | CASEMGMT ---
Addendum entered by Adriana Fernando 02/23/22 14:41: Received notification back from Palliative that pt has signed consents on 01/14/22 but needs scheduled for initial new pt visit yet. They do not see pt Mon-Fri. Addendum entered by Adriana Fernando 02/23/22 12:03: Fax[place] [facility] [place]. Addendum entered by Adriana Fernando 02/23/22 12:02: Pt did qualify for increased rx of O2. 2L at rest, 4L with exertion. Pt states this is what he has been doing at home anyway. Addendum entered by Adriana Fernando 02/23/22 11:51: Nurse Samreen aware pt needs tested for increased O2 script. Original Note: ALICE PHOENIX Assessment: Face to Face with pt for initial transition planning/care coordination assessment. ALICE PHOENIX introduced self and role at [facility], pt voices understanding and consents to assessment. Pt is A/O x4 and answers all questions appropriately at this time. Pt sitting up in bed with sig other at bedside. Care providers, pharmacy, and demographics verified/updated. Admitting Dx: aspiration pna PCP:Kevin Specialists:Friend, GI; Yannick, pulm; DAVIN, cardio; Trae nephro Preferred Pharmacy: [facility] Insurance: My Care [facility] Plan Prescription Benefit: yes LW/HPOA: Pt has a LW/DPOA on file at [facility]. His DPOA is his sig other She Gipson. LNOK: She Gipson, sig other Living Arrangements: Pt lives with sig other in a ground level apt with no steps to enter. Pt reports he needs assist with ADL's and IADL's, sig other provides. Pt has a grant button and sig other uses it for meds and nutrition. Pt receives supplies through [employer]. Transportation: Pt sig other transports him to medical appts. Pt denies concerns with transportation but is requesting a transport w/c. DME/HHC/SNF: Pt has O2 through [facility]. Pt sig other has portable tank to go home on. [place] [facility] [place] is 2L at rest, 3L with exertion. Pt has a shower chair, rollator, walker and electric scooter. Pt has had [facility] in the past and denies SNF stays. Pt denies need for ST at home, stating he is following up with . Pt reports he has Palliative Care that comes Mon-Fri 11-3. Email to palliative to verify. Pt states no concerns with going home at time of dc. Pt states no further concerns/needs. CM to follow. Advised pt to ask CM if any further question/concerns/needs arise, voices understanding. Pt Goal: Home with Palliative Care Plan: Home with Palliative Care TC to [facility], spoke with Kevin to verify script. He is aware of order for transport w/c that will be coming. He states it will drop ship to pt home in 3-5 days.
[2022-02-23 11:20] LABS: Bedside Glucose 162 mg/dL (74-106)
[2022-02-23 11:57] VITALS: O2SAT 84; O2SAT 87; O2SAT 90; O2SAT 94
== END 2022-02-23 12:15 | disposition home or self-care (01) | DRG 178 ==
LOC: ED 13:13 → MS3 14:54
PROVIDERS: Admitting Provider Internal Medicine; Emergency Provider Emergency Medicine; PCP Internal Medicine; Visit Provider Internal Medicine
DX: J69.0 Pneumonitis due to inhalation of food and vomit (principal); J96.11 Chronic respiratory failure with hypoxia; I50.32 Chronic diastolic (congestive) heart failure; E11.42 Type 2 diabetes mellitus with diabetic polyneuropathy; I11.0 Hypertensive heart disease with heart failure; J44.9 Chronic obstructive pulmonary disease, unspecified; E11.43 Type 2 diabetes mellitus with diabetic autonomic (poly)neuropathy; E11.51 Type 2 diabetes mellitus with diabetic peripheral angiopathy without gangrene; Z79.4 Long term (current) use of insulin; Z93.1 Gastrostomy status; I16.0 Hypertensive urgency; K31.84 Gastroparesis; F41.9 Anxiety disorder, unspecified; K21.9 Gastro-esophageal reflux disease without esophagitis; M10.9 Gout, unspecified; I25.10 Atherosclerotic heart disease of native coronary artery without angina pectoris; I25.2 Old myocardial infarction; G47.30 Sleep apnea, unspecified; F32.A Depression, unspecified; Z79.899 Other long term (current) drug therapy; E66.9 Obesity, unspecified; Z68.39 Body mass index [BMI] 39.0-39.9, adult; R13.12 Dysphagia, oropharyngeal phase; Z99.81 Dependence on supplemental oxygen; Z87.442 Personal history of urinary calculi; Z87.01 Personal history of pneumonia (recurrent); Z79.82 Long term (current) use of aspirin; Z79.02 Long term (current) use of antithrombotics/antiplatelets; Z95.5 Presence of coronary angioplasty implant and graft
CPT/HCPCS: 36415; 71045; 80048; 81001; 82962; 83605; 85025; 87040; 87149; 87428; 92610; 93005; 94640; 97802; 99251; 99285; J7030; J7050; A4216; G0463

== ENCOUNTER 2022-02-24 14:30 | Outpatient (RCR) | payer MEDICARE, MEDICAID, SELFPAY ==
[2022-01-27 00:41] VITALS: BMI 39.5
--- NOTE | 2022-01-29 15:15 | EX.NTREPO ---
Medical Nutrition Therapy - History Nutrition Services has been consulted to:: Manage nutrient details of diet order, Manage enteral nutrition, Conduct nutrition education Current diet/nutrition support order:: pureed/thin liquids PO. 3 cartons of Vital AF 1.2 via g-tube per day, which provides 853 calories, 53 g protein, and 936mL fluid/day - Anthropometric Measurements Height:: 5 ft 10 in Weight:: 123.831 kg Body Mass Index (BMI):: 39.2 - Assessment Food and Nutrient Intake: Pt states PO intake has improved since cutting back on enteral nutrition support. He has been accepting of pureed meals from [employer] and is eating ~2 entrees from [employer]/day. Reviewed nutrition labels of these meals- Spanish [place] meal is 540 calories, 13 g protein; Pizza meal is 630 calories, 16 g protein. Pt also has sugar free drinks and sugar free jello. States he occasionally has a slice of salami or smashed up animal cracker. Estimated daily calorie intake from PO meals and enteral nutrition: 3 calories, 82 g protein. Pt states he often feels too full. Noted Dr. Rodriguez instructed pt on venting PEG when feeling bloated. - Nutrition Diagnosis: Intake Problem Excessive Energy Intake Intake Problem - Etiology: r/t excessive calorie intake from enteral and PO nutrition Intake Problem - Signs/Symptoms: as evidenced by estimated PO intake providing ~1170 calories/day per diet recall and enteral nutrition providing ~853 calories/day which exceeds estimated nutritional needs Status: Active Problem - Protein Calorie Malnutrition Evidence of Malnutrition Exists: No - Nutrition Intervention Nutrition Prescription: 3221-4203 calories/day (25 calories/kg IBW). 70-80 g protein/day (1.0 g/kg IBW). 1875mL fluid/day (25mL/kg IBW) - Food / Nutrient Delivery Interventions Summary of nutrition intervention:: Nutrition education provided, Order/adjust enteral nutrition Nutrition support ordered as / adjusted to:: 1) Via G-tube: Vital AF 1.2 237mL 1-2 cartons/day to provide 284 calories, 17.8 g protein per carton. 2) Via PO diet: pureed/thin liquids per MESSENGER FLOORPERSON recommendation. Limiting high sodium, high carbohydrate foods. 3) Total daily calorie goal 9062-5793 calories. 4) Continue monitoring fluid intake, daily wts, and blood sugars. Nutrition education provided?: Yes Nutrition Counseling: Again discussed risks of PO nutrition- pt feels he is doing much better when eating and is more accepting of purees. Pt is motivated to lose wt to prevent aspiration. We discussed ideal snacks if pt is still hungry- encouraged higher protein snacks that are appropriate texture (yogurt, cottage cheese). Pt has drank Glucerna shakes in the past and would be agreeable if necessary- explained that Vital AF via PEG was similar to a protein shake and pt then stated he was OK w/ supplementing w/ cartons of Vital via PEG as needed. Discussed goal calorie range (5010-3195 calories/day). - MNT Monitoring Active Nutrition Patient: Yes
[2022-01-29 15:17] VITALS: BMI 39.2
== END 2022-02-26 23:59 ==
LOC: DC 14:30
PROVIDERS: PCP Internal Medicine; Visit Provider Internal Medicine
DX: E11.22 Type 2 diabetes mellitus with diabetic chronic kidney disease (principal); N18.30 Chronic kidney disease, stage 3 unspecified
CPT/HCPCS: 97803

== ENCOUNTER 2022-03-03 15:27 | Emergency (ER) | payer MEDICARE, MEDICAID, SELFPAY ==
[2022-03-03 15:29] VITALS: BP 158/77; PULSE 58; RESP 14; TEMP 36.3; O2SAT 97; BMI 39.0
--- NOTE | 2022-03-03 15:54 | EDS_ITS ---
HPI History of Present Illness Chief Complaint: General Illness Informant: patient Onset/Context/Timing Onset: Today Narrative Narrative: 62-year-old male who had a gastric feeding tube placed by GI on January 12. That came out and had to have it replaced with a longer tube by the emergency department within the last month or so. Patient has a feeding tube because of aspiration. Today they thought it was coming out so they came to have it evaluated. He denies any other complaints. There is no pain. 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 Bronchiectasis with (acute) exacerbation Cardiology follow-up encounter Chronic cough Chronic respiratory failure with hypoxia COPD (chronic obstructive pulmonary disease) COPD (chronic obstructive pulmonary disease) CPAP (continuous positive airway pressure) dependence Depression Diabetes Essential hypertension Gastric reflux GERD (gastroesophageal reflux disease) High cholesterol History of aspiration pneumonia History of echocardiogram History of edema History of heart attack History of non-ST elevation myocardial infarction (NSTEMI) (08/2016) History of pain when walking History of steroid therapy History of stress test Hypertension Insulin dependent diabetes mellitus Kidney stones Kidney stones Leg pain, right Migraines Mood disorder Non-smoker Non-smoker On home oxygen therapy On home oxygen therapy Peripheral vascular occlusive disease Pneumonia Prostate disease Pulmonary nodule, left Right ankle pain Shortness of breath on exertion Silent aspiration Sleep apnea Type 2 diabetes mellitus Vision loss of left eye Wears glasses Wound of left lower extremity Home Medications acetaminophen 1,000 mg PO QHS PRN PRN 02/11/21 [History Last Taken 09/01/21] aspirin 81 mg tablet,delayed release 81 mg PO DAILY 11/05/21 [History Last Taken 01/09/22] spironolactone 40 mg PO DAILY 11/08/21 [History Last Taken Unknown] Artificial Tears([id number]) 2 drp EACH EYE Q1H PRN #0 ml 11/14/21 [Rx Last Taken Unknown] loratadine [Allergy Relief (loratadine)] 10 mg G-TUBE DAILY #0 tab 11/14/21 [Rx Last Taken Unknown] buspirone 7.5 mg tablet 7.5 mg PO TID #90 tab 11/25/21 [Rx Last Taken Unknown] isosorbide mononitrate 30 mg tablet,extended release 24 hr 30 mg PO DAILY #90 tab 11/25/21 [Rx Last Taken 01/12/22 08:00] metoclopramide HCl 5 mg tablet 5 mg PO BID #30 tab 11/25/21 [Rx Last Taken Unknown] nitroglycerin 0.4 mg sublingual tablet 0.4 mg SL Q5M PRN #30 tab 11/25/21 [Rx Last Taken Unknown] trazodone 100 mg tablet 100 mg G-TUBE QHS #90 tab 11/25/21 [Rx Last Taken Unknown] gauze bandage 4 X 4 sponge #1 ea 11/27/21 [Rx Last Taken Unknown] atorvastatin 80 mg tablet 80 mg PO QHS #90 tab 01/09/22 [Rx Last Taken Unknown] clopidogrel 75 mg tablet 75 mg PO DAILY #90 tab 01/09/22 [Rx Last Taken 01/09/22] finasteride 5 mg tablet 5 mg PO DAILY #90 tab 01/09/22 [Rx Last Taken Unknown] fluoxetine 20 mg capsule 20 mg PO DAILY #90 cap 01/09/22 [Rx Last Taken Unknown] fluoxetine 40 mg capsule 40 mg PO DAILY #90 cap 01/09/22 [Rx Last Taken Unknown] furosemide 40 mg tablet 40 mg PO DAILY #90 tab 01/09/22 [Rx Last Taken Unknown] pregabalin 75 mg capsule 75 mg PO BID #60 cap 01/09/22 [Rx Last Taken 01/12/22 08:00] insulin detemir U-100 100 unit/mL (3 mL) subcutaneous pen 34 unit SUBCUT QHS 90 Days #30.6 ml 01/19/22 [Rx Last Taken Unknown] insulin lispro 100 unit/mL subcutaneous pen 1 sliding scale dose SUBCUT .5 times daily ml 01/27/22 [History Last Taken Unknown] albuterol sulfate 90 mcg/actuation aerosol inhaler 2 puff INHALATION Q4H PRN #8.5 g 02/04/22 [Rx Last Taken Unknown] pantoprazole 20 mg tablet,delayed release 20 mg PO DAILY tab 02/04/22 [History Last Taken Unknown] carvedilol 12.5 mg tablet 12.5 mg PO BID #180 tab 02/05/22 [Rx Last Taken Unknown] alprazolam 0.5 mg tablet 0.5 mg PO BID PRN #60 tab 02/06/22 [Rx Last Taken Unknown] Vital AF 1.2 Will 90 ml FEEDING TUBE TID 02/22/22 [History Last Taken Unknown] insulin lispro 10 unit SUBCUT 5X/DAY 02/22/22 [History Last Taken Unknown] amlodipine 5 mg G-TUBE DAILY 30 Days #30 tab 02/23/22 [Rx Last Taken Unknown] amoxicillin 400 mg-potassium clavulanate 57 mg/5 mL oral suspension 10 ml FEEDING TUBE BID 14 Days #280 ml 02/23/22 [Rx Last Taken Unknown] losartan 50 mg PO DAILY 30 Days #30 tab 02/23/22 [Rx Last Taken Unknown] Allergy/AdvReac Type Severity Reaction Status Date / Time allopurinol AdvReac Vomiting Verified 03/03/22 15:29 Influenza Virus Vaccines AdvReac Vomiting Verified 03/03/22 15:29 pneumococcal vaccine AdvReac Vomiting Verified 03/03/22 15:29 Family History Mother Diabetes Heart disease CHF Father Heart disease CA/CAD Myocardial infarction Surgical History H/O lithotripsy History of angioplasty of peripheral vessel (2016) History of angioplasty of peripheral vessel History of ankle surgery History of cardiac catheterization History of coronary artery stent placement (08/2016) History of coronary artery stent placement History of esophagogastroduodenoscopy (EGD) History of left heart catheterization (11/15/17) History of thyroid surgery Hx of lithotripsy Hx of surgery to heart and great vessels, presenting hazards to health Hx of surgical procedure Hx of thyroidectomy Hx of toe surgery Hx of toe surgery PEG (percutaneous endoscopic gastrostomy) status Social History household members: spouse housing: apartment Smoking Status: Never smoker alcohol intake: never substance use type: does not use ROS ROS ED ROS Narrative Denies Review of Systems ROS Unobtainable: Denies due to encephalopathy Constitutional Constitutional ED: Denies fever(s) Eyes Eyes: Denies change in vision ENT ENT ED: Denies ear pain Cardiovascular Cardiovascular: Denies chest pain Respiratory/Chest Respiratory/Chest: Denies cough, dyspnea or sputum Gastrointestinal Gastrointestinal: Denies abdominal pain, diarrhea, nausea or vomiting Genitourinary Genitourinary ED: Denies dysuria Musculoskeletal Musculoskeletal: Denies myalgias Integumentary Denies rash Neurologic Neurologic: Denies headache(s) Psychiatric Psychiatric: Denies depression Endocrine Endocrinology: Denies polydipsia or polyuria Allergic/Immunologic Allergic/Immunologic ED: Denies mouth swelling or urticaria EXAM Physical Exam Narrative Exam Narrative: Six 2-year-old male no acute distress vital signs stable afebrile. H EENT exam unremarkable. Lungs are clear. Heart regular rhythm. Abdomen obese and soft nontender normal bowel sounds no peritoneal signs. Left upper quadrant and epigastric feeding tube. Appears in good position. Moving all 4 extremities. Neurologically is awake alert. Const Vital Signs: 03/03/22 15:29 Temperature 97.3 F L Temperature Source Temporal Pulse Rate 58 L Respiratory Rate 14 Blood Pressure 158/77 H Blood Pressure Mean 104 Pulse Ox 97 Oxygen Delivery Method Room Air Positive well nourished, well developed and obese; Negative for cachectic, contractures or unkempt General Appearance ED: well developed and NAD; Negative for unkempt, cachectic, contractures or cyanotic Nutritional Appearance: obese; Negative for cachectic HEENT Reports moist mucous membranes Negative for trauma or tenderness Eyes PERRL and EOMs intact bilaterally Neck no lymphadenopathy, supple and no JVD General: Negative for tenderness Chest Wall inspection of chest normal and palpation of chest normal Resp normal respiratory effort and clear to auscultation bilaterally Effort and Inspection: Negative for pain with movement Auscultation: Negative for rales or wheezes Cardio regular rate, regular rhythm, S1 normal heart sound, S2 normal heart sound and no murmurs GI normal to inspection, nondistended, normoactive bowel sounds, non-tender, non- distended and no masses Auscultation: normoactive bowel sounds Palpation: soft; Negative for tender or guarding Back/Spine no CVA tenderness General Back: Negative for CVA tenderness Extremity normal to inspection General Extremety ED: Negative for tenderness Neuro oriented x3 Sensorium / Orientation: alert; Negative for orientation impaired, lethargic or stuporous Motor Exam: strength 5/5 throughout Psych mental status grossly normal Appearance: Negative for unkempt Attitude: No agitated Mood & Affect: Negative for depressed, anxious or tearful Skin no rashes or lesions noted and no wounds General Skin Exam: Negative for jaundice MDM MDM MDM Narrative Medical decision making narrative: 62-year-old they are concerned his feeding tube is coming out. We will do a KUB with Gastrografin to ensure it is in appropriate position. KUB with Gastrografin showed the feeding tube in the stomach. Patient is doing well at 520 aware of the x-ray with him to be discharged to home. Radiography Diagnostic Testing: Clinical Impression(s) from Imaging Studies KUB X-Ray 03/03/22 16:45 IMPRESSION: Contrast is seen within the stomach confirming correct placement of PEG tube. Electronically Signed: Mac Hunt MD at 17:08 EDT , KUB with Gastrografin showed the feeding tube inside the stomach. Discharge Plan Triage Chief Complaint: General Illness ED Provider: Cuba Ugarte Dx/Rx/DC Orders Clinical Impression: Complication of feeding tube, History of diabetes mellitus Prescriptions: No Action aspirin [Adult Aspirin Regimen] 81 mg tablet,delayed release (DR/EC) 81 mg PO DAILY RF: 0 atorvastatin 80 mg tablet 80 mg PO QHS Qty: 90 RF: 2 fluoxetine 20 mg capsule 20 mg PO DAILY Qty: 90 RF: 2 fluoxetine 40 mg capsule 40 mg PO DAILY Qty: 90 RF: 2 furosemide 40 mg tablet 40 mg PO DAILY Qty: 90 RF: 3 clopidogrel 75 mg tablet 75 mg PO DAILY Qty: 90 RF: 3 finasteride 5 mg tablet 5 mg PO DAILY Qty: 90 RF: 3 pregabalin [Lyrica] 75 mg capsule 75 mg PO BID Qty: 60 RF: 1 alprazolam 0.5 mg tablet 0.5 mg PO BID PRN (Reason: anxiety) Qty: 60 RF: 0 pantoprazole 20 mg tablet,delayed release (DR/EC) 20 mg PO DAILY RF: 0 albuterol sulfate 90 mcg/actuation HFA aerosol inhaler 2 puff inhalation Q4H PRN (Reason: shortness of breath or wheezing) Qty: 8.5 RF: 3 carvedilol 12.5 mg tablet 12.5 mg PO BID Qty: 180 RF: 3 insulin lispro 100 unit/mL insulin pen 1 sliding scale dose subcut .5 times daily RF: 0 acetaminophen 500 MG tablet 1,000 mg PO QHS PRN PRN (Reason: Pain 1-10 Or Fever) RF: 0 spironolactone 25 mg tablet 40 mg PO DAILY RF: 0 loratadine [Allergy Relief (loratadine)] 10 mg Tablet 10 mg G-tube DAILY Qty: 0 RF: 0 Artificial Tears([id number]) 1-0.2-0.2 % Drops 2 drp EACH EYE Q1H PRN (Reason: DRY EYES) Qty: 0 RF: 0 insulin lispro 100 unit/mL Insulin Pen 10 unit SUBCUT 5X/DAY RF: 0 Vital AF 1.2 Will 0.08 gram- 1.2 kcal/mL Liquid 90 ml feeding tube TID RF: 0 losartan 50 mg Tablet 50 mg PO DAILY 30 Days Qty: 30 RF: 0 amlodipine 5 mg Tablet 5 mg G-tube DAILY 30 Days Qty: 30 RF: 0 buspirone 7.5 mg tablet 7.5 mg PO TID Qty: 90 RF: 0 isosorbide mononitrate 30 mg tablet extended release 24 hr 30 mg PO DAILY Qty: 90 RF: 0 metoclopramide HCl [Reglan] 5 mg tablet 5 mg PO BID Qty: 30 RF: 0 nitroglycerin 0.4 mg tablet, sublingual 0.4 mg SL Q5M PRN (Reason: Chest Pain) Qty: 30 RF: 0 trazodone 100 mg tablet 100 mg G-tube QHS Qty: 90 RF: 0 (DME) Curity Gauze 4 X 4 sponge See Rx Instructions .ROUTE .MEDSUPPLY Qty: 1 RF: 0 insulin detemir U-100 100 unit/mL (3 mL) insulin pen 34 unit subcut QHS 90 Days Qty: 30.6 RF: 2 amoxicillin-pot clavulanate 400-57 mg/5 mL suspension for reconstitution 10 ml feeding tube BID 14 Days Qty: 280 RF: 0 Primary Care Provider: Doretha Brown Referrals: Doretha Brown MD [Primary Care Provider] - As Needed Activity Restrictions/Additional Instructions: Your feeding tube is in good position. Disposition Disposition: Home, Self Care Discharge Date/Time: 03/03/22 17:22
--- NOTE | 2022-03-03 16:45 | RAD_ITS ---
INDICATION: gastrograffin for peg placement EXAMINATION/TECHNIQUE: X-RAY - XR Abdomen 1 View COMPARISON: None FINDINGS: BOWEL GAS PATTERN: Non-obstructive. Contrast is seen within the stomach. FREE AIR: Not assessed on a single supine view. ORGANOMEGALY: Not seen. CALCIFICATIONS: No abnormal calcifications observed. LOWER CHEST: No acute pathology. BONES AND SOFT TISSUES: No acute pathology. RAD/Abdomen Single View (Portable) IMPRESSION: Contrast is seen within the stomach confirming correct placement of PEG tube. Electronically Signed: Mac Hunt MD at 17:08 EDT ,
== END 2022-03-03 17:22 | disposition home or self-care (01) ==
LOC: ED 15:49
PROVIDERS: Emergency Provider Emergency Medicine; PCP Internal Medicine; Visit Provider Emergency Medicine
DX: K94.23 Gastrostomy malfunction (principal); J44.9 Chronic obstructive pulmonary disease, unspecified; E11.9 Type 2 diabetes mellitus without complications; Z79.4 Long term (current) use of insulin; E78.00 Pure hypercholesterolemia, unspecified; I10 Essential (primary) hypertension; I25.10 Atherosclerotic heart disease of native coronary artery without angina pectoris; E66.9 Obesity, unspecified; M10.9 Gout, unspecified; F41.9 Anxiety disorder, unspecified; F32.A Depression, unspecified; K21.9 Gastro-esophageal reflux disease without esophagitis; Z87.01 Personal history of pneumonia (recurrent); I25.2 Old myocardial infarction; Z87.442 Personal history of urinary calculi; G47.30 Sleep apnea, unspecified; G43.909 Migraine, unspecified, not intractable, without status migrainosus; Z79.899 Other long term (current) drug therapy; Z79.82 Long term (current) use of aspirin; Z95.5 Presence of coronary angioplasty implant and graft; Z68.39 Body mass index [BMI] 39.0-39.9, adult
CPT/HCPCS: 74018; 99282

== ENCOUNTER 2022-03-17 15:35 | Outpatient (CLI) | payer MEDICARE, MEDICAID, SELFPAY ==
--- NOTE | 2022-03-17 15:46 | RAD_ITS ---
STUDY: X-RAY - ABDOMEN/PELVIS REASON FOR EXAM: Male, 62 years old. peg placement TECHNIQUE: Single AP view. 4 images. UNABLE TO GIVE CONTRAST DUE TO PT NOT HAVING ADAPTOR COMPARISON: None. FINDINGS: Bowel gas pattern is normal. No bowel obstruction. Moderate stool in the colon. Arterial calcifications in the pelvis. RAD/Abdomen Single View IMPRESSION: No bowel obstruction. No contrast given. Electronically Signed: Pily Coffye MD at 5:45 EDT ,
== END 2022-03-17 23:59 | disposition home or self-care (01) ==
LOC: RAD 15:36
PROVIDERS: PCP Internal Medicine; Referring Provider Internal Medicine Gastroenterology; Visit Provider Internal Medicine Gastroenterology
DX: Z93.1 Gastrostomy status (principal)
CPT/HCPCS: 74018

== ENCOUNTER 2022-03-20 16:56 | Inpatient (IN) | payer MEDICARE, MEDICAID, SELFPAY ==
[2022-03-20] VITALS (15 sets, daily range): BP systolic 98–135; BP diastolic 50–84; PULSE 65–80; RESP 12–21; TEMP 36.8–37.7; O2SAT 97–99; BMI 40.1
--- NOTE | 2022-03-20 17:12 | EKG12_ITS ---
Test Reason : WEAKNESS Blood Pressure : / mmHG Vent. Rate : 083 BPM Atrial Rate : 104 BPM P-R Int : 000 ms QRS Dur : 092 ms QT Int : 398 ms P-R-T Axes : 000 005 034 degrees QTc Int : 467 ms Sinus rhythm /Sinus Arrhythmia Confirmed by ROLAND JOHNS, FAUSTINA ([id number]), film and video editor SHARAN DOE ([id number]) on 03/24/2022 9:13:24 AM Referred By: KATELIN Confirmed By:FAUSTINA WATKINS MD
--- NOTE | 2022-03-20 17:13 | EDS_ITS ---
HPI History of Present Illness Chief Complaint: Weakness Detail of Chief Complaint: Fever 101.3, mild cough and weakness Informant: patient Onset/Context/Timing Onset: Today Context: Sudden Onset Timing: Continuous Quality: History of aspiration Location: Generalized Current Severity: Mild Maximum Severity: Moderate Worsened by: Nothing specific Relieved by: Nothing #1 complaint is weakness Associated Symptoms Associated Symptoms: Fever, slight cough, history of aspiration Narrative Narrative: Patient is a 62-year-old male with multiple medical problems. He has history of aspiration pneumonitis. He has been eating since his feeding tube has not been working for the past month. The feeding tube was replaced yesterday. Since he has slight cough with documented fever he was instructed by his doctor to come to the emergency department. His major complaint is weakness. He does endorse mild headache. He denies photophobia, change in vis ion, blurred vision or double vision. He denies ringing his ears decreased hearing. He denies congestion, rhinorrhea or postnasal drainage. He denies sore throat. Nuys change in voice. He does endorse slight cough that is nonproductive. He does endorse mild shortness of breath. He states he wears his oxygen continuously. Abdomen feels slightly bloated. He has slight irritation from the recent placement of the percutaneous gastric tube. He does report frequency. He does have history of diabetes. Nuys blurred vision. He does endorse increased thirst and dry mouth. 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 Bronchiectasis with (acute) exacerbation Cardiology follow-up encounter Chronic cough Chronic respiratory failure with hypoxia COPD (chronic obstructive pulmonary disease) CPAP (continuous positive airway pressure) dependence Depression Diabetes Essential hypertension Gastric reflux GERD (gastroesophageal reflux disease) High cholesterol History of aspiration pneumonia History of echocardiogram History of edema History of heart attack History of non-ST elevation myocardial infarction (NSTEMI) (08/2016) History of pain when walking History of steroid therapy History of stress test Hypertension Insulin dependent diabetes mellitus Kidney stones Leg pain, right Migraines Mood disorder Non-smoker On home oxygen therapy Peripheral vascular occlusive disease Pneumonia Prostate disease Pulmonary nodule, left Right ankle pain Shortness of breath on exertion Silent aspiration Sleep apnea Type 2 diabetes mellitus Vision loss of left eye Wears glasses Wound of left lower extremity Home Medications acetaminophen 1,000 mg PO QHS PRN PRN 02/11/21 [History Last Taken 09/01/21] aspirin 81 mg tablet,delayed release 81 mg PO DAILY 11/05/21 [History Last Taken 01/09/22] spironolactone 40 mg PO DAILY 11/08/21 [History Last Taken Unknown] Artificial Tears([id number]) 2 drp EACH EYE Q1H PRN #0 ml 11/14/21 [Rx Last Taken Unknown] loratadine [Allergy Relief (loratadine)] 10 mg G-TUBE DAILY #0 tab 11/14/21 [Rx Last Taken Unknown] isosorbide mononitrate 30 mg tablet,extended release 24 hr 30 mg PO DAILY #90 tab 11/25/21 [Rx Last Taken 01/12/22 08:00] metoclopramide HCl 5 mg tablet 5 mg PO BID #30 tab 11/25/21 [Rx Last Taken Unknown] nitroglycerin 0.4 mg sublingual tablet 0.4 mg SL Q5M PRN #30 tab 11/25/21 [Rx Last Taken Unknown] trazodone 100 mg tablet 100 mg G-TUBE QHS #90 tab 11/25/21 [Rx Last Taken Unknown] gauze bandage 4 X 4 sponge #1 ea 11/27/21 [Rx Last Taken Unknown] atorvastatin 80 mg tablet 80 mg PO QHS #90 tab 01/09/22 [Rx Last Taken Unknown] clopidogrel 75 mg tablet 75 mg PO DAILY #90 tab 01/09/22 [Rx Last Taken 01/09/22] finasteride 5 mg tablet 5 mg PO DAILY #90 tab 01/09/22 [Rx Last Taken Unknown] furosemide 40 mg tablet 40 mg PO DAILY #90 tab 01/09/22 [Rx Last Taken Unknown] pregabalin 75 mg capsule 75 mg PO BID #60 cap 01/09/22 [Rx Last Taken 01/12/22 08:00] insulin detemir U-100 100 unit/mL (3 mL) subcutaneous pen 34 unit SUBCUT QHS 90 Days #30.6 ml 01/19/22 [Rx Last Taken Unknown] insulin lispro 100 unit/mL subcutaneous pen 1 sliding scale dose SUBCUT .5 times daily ml 01/27/22 [History Last Taken Unknown] albuterol sulfate 90 mcg/actuation aerosol inhaler 2 puff INHALATION Q4H PRN #8.5 g 02/04/22 [Rx Last Taken Unknown] pantoprazole 20 mg tablet,delayed release 20 mg PO DAILY tab 02/04/22 [History Last Taken Unknown] carvedilol 12.5 mg tablet 12.5 mg PO BID #180 tab 02/05/22 [Rx Last Taken Unknown] alprazolam 0.5 mg tablet 0.5 mg PO BID PRN #60 tab 02/06/22 [Rx Last Taken Unknown] Vital AF 1.2 Will 90 ml FEEDING TUBE TID 02/22/22 [History Last Taken Unknown] insulin lispro 10 unit SUBCUT 5X/DAY 02/22/22 [History Last Taken Unknown] amlodipine 5 mg G-TUBE DAILY 30 Days #30 tab 02/23/22 [Rx Last Taken Unknown] losartan 50 mg PO DAILY 30 Days #30 tab 02/23/22 [Rx Last Taken Unknown] buspirone 7.5 mg tablet 7.5 mg PO TID #90 tab 03/09/22 [Rx Last Taken Unknown] fluoxetine 20 mg capsule 20 mg PO DAILY #90 cap 03/09/22 [Rx Last Taken Unknown] fluoxetine 40 mg capsule 40 mg PO DAILY #90 cap 03/09/22 [Rx Last Taken Unknown] syringe, ENFit, non-sterile 60 mL #30 ea 03/20/22 [Rx Last Taken Unknown] Allergy/AdvReac Type Severity Reaction Status Date / Time allopurinol AdvReac Vomiting Verified 03/20/22 17:01 Influenza Virus Vaccines AdvReac Vomiting Verified 03/20/22 17:01 pneumococcal vaccine AdvReac Vomiting Verified 03/20/22 17:01 Family History Mother Diabetes Heart disease CHF Father Heart disease TX/CAD Myocardial infarction Surgical History H/O lithotripsy History of angioplasty of peripheral vessel (2016) History of angioplasty of peripheral vessel History of ankle surgery History of cardiac catheterization History of coronary artery stent placement (08/2016) History of coronary artery stent placement History of esophagogastroduodenoscopy (EGD) History of left heart catheterization (11/15/17) History of thyroid surgery Hx of lithotripsy Hx of surgery to heart and great vessels, presenting hazards to health Hx of surgical procedure Hx of thyroidectomy Hx of toe surgery Hx of toe surgery PEG (percutaneous endoscopic gastrostomy) status Social History household members: spouse housing: apartment Smoking Status: Never smoker alcohol intake: never substance use type: does not use ROS ROS ED Constitutional Constitutional ED: Reports chills, fever(s) and sweats; Denies subjective or weight loss Eyes Eyes: Denies blurry vision, change in vision or diplopia ENT ENT ED: Denies ear pain, rhinorrhea or sore throat Cardiovascular Cardiovascular: Denies chest pain, orthopnea, palpitations or racing heartbeat Respiratory/Chest Respiratory/Chest: Reports cough and dyspnea; Denies dyspnea on exertion, orthopnea or sputum Gastrointestinal Gastrointestinal: Denies abdominal pain, constipation, diarrhea, melena, nausea or vomiting Genitourinary Genitourinary ED: Reports urinary frequency; Denies dysuria or hematuria Musculoskeletal Musculoskeletal: Denies arthralgias, back pain, myalgias or neck pain Integumentary Denies rash Neurologic Neurologic: Reports headache(s) and weakness; Denies paresthesias Endocrine Endocrinology: Reports polydipsia and polyuria; Denies polyphagia EXAM Physical Exam Const Vital Signs: 03/20/22 16:57 03/20/22 17:02 03/20/22 17:44 Temperature 99.9 F H 98.5 F Temperature Source Oral Oral Pulse Rate Respiratory Rate Respiratory Effort Normal Non-Labored Blood Pressure 127/58 H Blood Pressure Mean 81 Pulse Ox Oxygen Delivery Method Room Air Oxygen Flow Rate (L/min) 4 03/20/22 18:08 03/20/22 18:27 03/20/22 18:28 Temperature 98.5 F 98.5 F Temperature Source Oral Oral Pulse Rate 76 80 Respiratory Rate 16 18 Respiratory Effort Blood Pressure 122/68 H 135/63 H Blood Pressure Mean 86 87 Pulse Ox 97 97 Oxygen Delivery Method Room Air Oxygen Flow Rate (L/min) 03/20/22 19:17 03/20/22 19:42 03/20/22 20:07 Temperature 98.4 F Temperature Source Oral Pulse Rate 75 77 76 Respiratory Rate 15 12 15 Respiratory Effort Blood Pressure 115/78 98/84 H 115/50 L Blood Pressure Mean 90 88 71 Pulse Ox 98 99 98 Oxygen Delivery Method Nasal Cannula Nasal Cannula Room Air Oxygen Flow Rate (L/min) 4 4 03/20/22 20:11 03/20/22 20:13 03/20/22 21:05 Temperature 99.8 F H 99.8 F H 99.8 F H Temperature Source Temporal Temporal Temporal Pulse Rate 78 74 Respiratory Rate 16 15 Respiratory Effort Blood Pressure 115/50 L 115/61 Blood Pressure Mean 71 79 Pulse Ox 98 99 Oxygen Delivery Method Nasal Cannula Nasal Cannula Oxygen Flow Rate (L/min) 4 4 03/20/22 22:16 Temperature 99.1 F Temperature Source Temporal Pulse Rate 65 Respiratory Rate 13 Respiratory Effort Blood Pressure 104/64 Blood Pressure Mean 77 Pulse Ox 98 Oxygen Delivery Method Nasal Cannula Oxygen Flow Rate (L/min) 4 Positive well nourished, well developed and obese General Appearance ED: well developed and diaphoretic; Negative for cyanotic, NAD or pallor Nutritional Appearance: obese HEENT Reports TM's clear and dry mucous membranes Negative for trauma or tenderness Tympanic Membrane ED: Yes TM's clear Mouth ED: Yes dry mucous membranes Mouth: dry mucous membranes Eyes PERRL and EOMs intact bilaterally General Eye ED: Negative for pale conjunctiva or scleral icterus Neck no lymphadenopathy, supple and no JVD Neck Narrative: Trachea is midline. There is no inspiratory expiratory stridor. General: Negative for tenderness Chest Wall inspection of chest normal and palpation of chest normal Resp normal respiratory effort and No clear to auscultation bilaterally Effort and Inspection: Negative for pain with movement Auscultation: rales right (Anteriorly and at the posterior base) GI normal to inspection, nondistended, normoactive bowel sounds, non-tender and non-distended Palpation: soft Back/Spine no CVA tenderness Cervical Spine: Negative for cervical spine tenderness Thoracic Spine / Upper Back: Negative for thoracic spinal tenderness or paraspinal muscle tenderness Extremity Negative for normal to inspection General Extremety ED: Yes edema; Negative for tenderness General Extremity: edema Neuro oriented x3, CN's II-XII intact bilaterally and no sensory deficits noted Sensorium / Orientation: alert Motor Exam: strength 5/5 throughout Psych mental status grossly normal Skin no rashes or lesions noted and no wounds General Skin Exam: Negative for jaundice or pallor MDM MDM MDM Narrative Medical decision making narrative: With history of aspiration abnormal auscultatory findings and fever concern patient may have aspirated. Patient was treated with Unasyn for aspiration pneumonitis. Sepsis work-up was initiated. Lactate was greater than 4. Patient received a 30 cc/kg bolus of normal saline. When arrived she informed that he has urgency frequency which raises concern for urinary tract infection. UA was obtained. Urine is unremarkable. Clinically patient aspirated and has auscultatory findings on the right. Patient has only 1 sirs criteria. Lactate is elevated 4.5. Patient did receive fluid bolus. Creatinine is elevated but not significantly. Lab Data Attestation: I reviewed the patient's lab results. Lab results narrative: White count is elevated 16.5 thousand. Coags normal. Comprehensive metabolic panel is remarkable for creatinine of 1.66 with a GFR of 45. Glucose elevated to 46 with a normal CO2 and anion gap. Labs: Laboratory Results - last 24 hr 03/20/22 03/20/22 03/20/22 17:37 17:37 17:37 WBC 16.5 H RBC 4.05 L Hgb 11.3 L Hct 35.3 L MCV 87.2 MCH 27.9 MCHC 32.0 RDW Std Deviation 45.5 H RDW Coeff of James 14.3 Plt Count 185 MPV 11.6 Immature Gran % (Auto) 0.500 Neut % (Auto) 88.3 H Lymph % (Auto) 5.1 L [place] % (Auto) 5.5 Eos % (Auto) 0.4 Baso % (Auto) 0.2 Absolute Neuts (auto) 14.6 H Absolute Lymphs (auto) 0.84 Nucleated RBC % 0 PT 14.2 INR 1.1 APTT 24.7 Sodium 140 Potassium 4.3 Chloride 103 Carbon Dioxide 31.0 Anion Gap 6 BUN 32 H Creatinine 1.66 H Estim Creat Clear Calc 47.03 Est GFR (MDRD) Af Amer 54 L Est GFR (MDRD) Non-Af 45 L BUN/Creatinine Ratio 19.3 Glucose 246 H Lactic Acid Calcium 9.3 Total Bilirubin 0.50 AST 21 ALT 27 Alkaline Phosphatase 113 Total Protein 7.5 Albumin 3.4 Globulin 4.1 Albumin/Globulin Ratio 0.8 L Urine Color Urine Clarity Urine pH Ur Specific Hardy Urine Protein Urine Glucose (UA) Urine Ketones Urine Occult Blood Urine Nitrite Urine Bilirubin Urine Urobilinogen Ur Leukocyte Esterase Urine RBC Urine WBC Ur Squamous Epith Cells Urine Bacteria Urine Mucus 03/20/22 03/20/22 17:37 20:10 WBC RBC Hgb Hct MCV MCH MCHC RDW Std Deviation RDW Coeff of James Plt Count MPV Immature Gran % (Auto) Neut % (Auto) Lymph % (Auto) [place] % (Auto) Eos % (Auto) Baso % (Auto) Absolute Neuts (auto) Absolute Lymphs (auto) Nucleated RBC % PT INR APTT Sodium Potassium Chloride Carbon Dioxide Anion Gap BUN Creatinine Estim Creat Clear Calc Est GFR (MDRD) Af Amer Est GFR (MDRD) Non-Af BUN/Creatinine Ratio Glucose Lactic Acid 4.2 H* Calcium Total Bilirubin AST ALT Alkaline Phosphatase Total Protein Albumin Globulin Albumin/Globulin Ratio Urine Color Yellow Urine Clarity Clear Urine pH 5.0 Ur Specific Hardy 1.020 Urine Protein Negative Urine Glucose (UA) Normal Urine Ketones Negative Urine Occult Blood Negative Urine Nitrite Negative Urine Bilirubin Negative Urine Urobilinogen Normal Ur Leukocyte Esterase Negative Urine RBC 0 SEEN Urine WBC 0 SEEN Ur Squamous Epith Cells 0-5 SEEN Urine Bacteria 0 SEEN Urine Mucus 0 SEEN Radiography Chest X-Ray - ED: 1 View and Read by ED Physician (Right hemidiaphragm is elevated. There is no obvious infiltrate. Limited inspiratory volume. Cardiac silhouette and size unremarkable. Perihilar region unremarkable. Osseous structures are unremarkable. X-rays interpreted by ca at [id number].) Diagnostic Testing: Clinical Impression(s) from Imaging Studies Chest X-Ray 03/20/22 17:16 IMPRESSION: No acute cardiopulmonary process. Electronically Signed: Saeed Rodriguez MD at 17:55 EDT , EKG Initial EKG: Attestation: I personally reviewed and interpreted this EKG as follows: Interpretation: Sinus Rhythm (Sinus rhythm with a rate of 83. RI interval is normal. QRS duration 92 ms. QT duration 398 ms. [place] is normal.) Critical Care Time Critical Care Time: Yes Critical care time (excluding procedures): 30-74 minutes (32 minutes), Including time spent: (History, physical, documentation, review of prior records, interpretation laboratory results initiation of therapy), Discussing w/Patient &/or Family/Medical Apparatus Model Maker, Discussing w/Consultants and Arranging Admission or Transfer Discharge Plan Dx/Rx/DC Orders Clinical Impression: Aspiration pneumonitis, Acidosis, lactic, Acute kidney insufficiency, Hyperglycemia due to type 2 diabetes mellitus Disposition Disposition: Acute Care [facility]
--- NOTE | 2022-03-20 17:16 | RAD_ITS ---
STUDY: X-RAY CHEST REASON FOR EXAM: Male, 62 years old. Week, fever, cough and rales right side TECHNIQUE: 1 view COMPARISON: 02/22/2022 FINDINGS: Cardiomediastinal silhouette is unremarkable. Costophrenic angles are sharp. Lungs are of low volume but grossly clear. The trachea is midline. There is no pneumothorax. The bones are grossly intact. RAD/Chest 1 View (Portable) IMPRESSION: No acute cardiopulmonary process. Electronically Signed: Saeed Rodriguez MD at 17:55 EDT ,
[2022-03-20 17:50] LABS: Absolute Lymphocyte Count 0.84 X10^3/uL (0.83-4.51); Absolute Neutrophil Count 14.6 X10^3/uL (2.0-7.7); Basophil# 0.03 X10^3/uL; Basophil% 0.2 % (0-1); Eosinophil# 0.06 X10^3/uL; Eosinophils% 0.4 % (0-5); Hematocrit 35.3 % (40-54); Hemoglobin 11.3 g/dL (13.0-16.5); Lymphocyte # 0.84 X10^3/ul (0.83-4.51); Lymphocyte % 5.1 % (19-41); Mean Corpuscular Hgb 27.9 pg (27.0-32.0); Mean Corpuscular Volume 87.2 fL (80-94); Mean Platelet Vol. 11.6 fl (6.2-12.0); Monocyte# 0.91 X10^3/uL; Monocyte% 5.5 % (0-10); NRBC Flagged by Analyzer 0 % (0-5); Neutrophil # 14.61 X10^3/uL (2.7-7.7); Neutrophil % 88.3 % (47-70); Platelet Count 185 K/mm3 (150-450); RBC Distribution Width CV 14.3 % (11.6-14.6); RBC Distribution Width SD 45.5 fl (35.1-43.9); Red Blood Count 4.05 M/mm3 (4.6-6.2); White Blood Count 16.5 K/mm3 (4.4-11.0)
[2022-03-20 17:55] LABS: International Normalized Ratio 1.1; Prothrombin Time (Protime)PT. 14.2 SECONDS (11.7-14.9)
[2022-03-20 17:56] LABS: Partial Thromboplast Time 24.7 Seconds (24.1-36.2)
[2022-03-20 17:59] LABS: ALB/GLOB Ratio 0.8 RATIO (0.9-2.4); AST(SGOT) 21 U/L (15-37); Alanine Aminotransfer ALT/SGPT 27 U/L (16-61); Albumin, Serum 3.4 g/dL (3.2-5.0); Alkaline Phosphatase 113 U/L (45-117); Anion Gap 6 (5-15); BUN 32 mg/dL (7-18); BUN/Creat Ratio 19.3 RATIO (10-20); Calcium,Total 9.3 mg/dL (8.5-10.1); Chloride 103 mmol/L (98-107); Creatinine, Serum 1.66 mg/dL (0.70-1.30); EST Glomerular Filtration Rate 45 mL/min (>60); Est Glom Filt Rate - Afr Amer 54 mL/min (>60); Estimated Creatinine Clearance 47.03 ml/min; Globulin 4.1 g/dL (2.2-4.2); Glucose 246 mg/dL (74-106); Potassium 4.3 mmol/L (3.5-5.1); Protein, Total 7.5 g/dL (6.4-8.2); Sodium Level 140 mmol/L (136-145)
[2022-03-20 18:27] LABS: Lactic Acid 4.2 mmol/L (0.4-1.9)
[2022-03-20] MEDS: 0.9% Normal Saline 1,000 ML 999 ML IV ×4 (18:30→22:51)
[2022-03-20 20:23] LABS: Bacteria 0 SEEN /hpf (None Seen); Mucous, Urine 0 SEEN /hpf (<or=2+); Red Blood Cells-Urine 0 SEEN /hpf (0-5); White Blood Cells 0 SEEN /hpf (0-5)
[2022-03-20 20:24] LABS: Color, Urine Yellow (Yellow); Glucose, Dipstick Normal (Normal); Ketone-Dipstick Negative (Negative); Protein-Dipstick Negative (Negative); Urine Bilirubin Dipstick Negative (Negative); Urine Clarity Clear (Clear); Urine Urobilinogen Normal (Normal)
[2022-03-20 20:25] LABS: Leukocyte Esterase-Dipstick Negative /ul (Negative); Nitrite-Dipstick Negative (Negative); Occult Blood-Urine Negative /ul (Negative)
[2022-03-20 21:38] LABS: Reflex Lactate? Y
[2022-03-20 21:56] LABS: Squamous Epithelial Cells - UA 0-5 SEEN /hpf (0-5)
[2022-03-20 22:40] LABS: Lactic Acid 1.6 mmol/L (0.4-1.9)
--- NOTE | 2022-03-20 23:39 | PCM.HP.STD ---
[facility] - General General Date of Admission: 03/20/22 HPI Narrative REA HANNA, is a 62 M who presents to the hospital with cough and shortness of breath. He had significant issues with dysphagia and aspiration in the past so he had feeding tube placed. It did become dislodged for the last week or so and so since that time he has been eating orally. He did follow-up with gastroenterology who placed another PEG tube. However he had continued to eat orally and it appears that he has aspirated. When he initially came in he is dehydrated with a creatinine of 1.66 which is up from his baseline of 1.1 and he did have an elevated lactic acid though this has resolved. [facility] Medical History (Updated 03/20/22 @ 23:[address] 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 Bronchiectasis with (acute) exacerbation Cardiology follow-up encounter Chronic cough Chronic respiratory failure with hypoxia COPD (chronic obstructive pulmonary disease) CPAP (continuous positive airway pressure) dependence Depression Diabetes Essential hypertension Gastric reflux GERD (gastroesophageal reflux disease) High cholesterol History of aspiration pneumonia History of echocardiogram History of edema History of heart attack History of non-ST elevation myocardial infarction (NSTEMI) (08/2016) History of pain when walking History of steroid therapy History of stress test Hypertension Insulin dependent diabetes mellitus Kidney stones Leg pain, right Migraines Mood disorder Non-smoker On home oxygen therapy Peripheral vascular occlusive disease Pneumonia Prostate disease Pulmonary nodule, left Right ankle pain Shortness of breath on exertion Silent aspiration Sleep apnea Type 2 diabetes mellitus Vision loss of left eye Wears glasses Wound of left lower extremity Home Medications acetaminophen 1,000 mg PO QHS PRN PRN 02/11/21 [History Last Taken 09/01/21] aspirin 81 mg tablet,delayed release 81 mg PO DAILY 11/05/21 [History Last Taken 01/09/22] spironolactone 40 mg PO DAILY 11/08/21 [History Last Taken Unknown] Artificial Tears([id number]) 2 drp EACH EYE Q1H PRN #0 ml 11/14/21 [Rx Last Taken Unknown] loratadine [Allergy Relief (loratadine)] 10 mg G-TUBE DAILY #0 tab 11/14/21 [Rx Last Taken Unknown] isosorbide mononitrate 30 mg tablet,extended release 24 hr 30 mg PO DAILY #90 tab 11/25/21 [Rx Last Taken 01/12/22 08:00] metoclopramide HCl 5 mg tablet 5 mg PO BID #30 tab 11/25/21 [Rx Last Taken Unknown] nitroglycerin 0.4 mg sublingual tablet 0.4 mg SL Q5M PRN #30 tab 11/25/21 [Rx Last Taken Unknown] trazodone 100 mg tablet 100 mg G-TUBE QHS #90 tab 11/25/21 [Rx Last Taken Unknown] gauze bandage 4 X 4 sponge #1 ea 11/27/21 [Rx Last Taken Unknown] atorvastatin 80 mg tablet 80 mg PO QHS #90 tab 01/09/22 [Rx Last Taken Unknown] clopidogrel 75 mg tablet 75 mg PO DAILY #90 tab 01/09/22 [Rx Last Taken 01/09/22] finasteride 5 mg tablet 5 mg PO DAILY #90 tab 01/09/22 [Rx Last Taken Unknown] furosemide 40 mg tablet 40 mg PO DAILY #90 tab 01/09/22 [Rx Last Taken Unknown] pregabalin 75 mg capsule 75 mg PO BID #60 cap 01/09/22 [Rx Last Taken 01/12/22 08:00] insulin detemir U-100 100 unit/mL (3 mL) subcutaneous pen 34 unit SUBCUT QHS 90 Days #30.6 ml 01/19/22 [Rx Last Taken Unknown] insulin lispro 100 unit/mL subcutaneous pen 1 sliding scale dose SUBCUT .5 times daily ml 01/27/22 [History Last Taken Unknown] albuterol sulfate 90 mcg/actuation aerosol inhaler 2 puff INHALATION Q4H PRN #8.5 g 02/04/22 [Rx Last Taken Unknown] pantoprazole 20 mg tablet,delayed release 20 mg PO DAILY tab 02/04/22 [History Last Taken Unknown] carvedilol 12.5 mg tablet 12.5 mg PO BID #180 tab 02/05/22 [Rx Last Taken Unknown] alprazolam 0.5 mg tablet 0.5 mg PO BID PRN #60 tab 02/06/22 [Rx Last Taken Unknown] Vital AF 1.2 Will 90 ml FEEDING TUBE TID 02/22/22 [History Last Taken Unknown] insulin lispro 10 unit SUBCUT 5X/DAY 02/22/22 [History Last Taken Unknown] amlodipine 5 mg G-TUBE DAILY 30 Days #30 tab 02/23/22 [Rx Last Taken Unknown] losartan 50 mg PO DAILY 30 Days #30 tab 02/23/22 [Rx Last Taken Unknown] buspirone 7.5 mg tablet 7.5 mg PO TID #90 tab 03/09/22 [Rx Last Taken Unknown] fluoxetine 20 mg capsule 20 mg PO DAILY #90 cap 03/09/22 [Rx Last Taken Unknown] fluoxetine 40 mg capsule 40 mg PO DAILY #90 cap 03/09/22 [Rx Last Taken Unknown] syringe, ENFit, non-sterile 60 mL #30 ea 03/20/22 [Rx Last Taken Unknown] Allergy/AdvReac Type Severity Reaction Status Date / Time allopurinol AdvReac Vomiting Verified 03/20/22 17:01 Influenza Virus Vaccines AdvReac Vomiting Verified 03/20/22 17:01 pneumococcal vaccine AdvReac Vomiting Verified 03/20/22 17:01 Family History Mother Diabetes Heart disease CHF Father Heart disease AR/CAD Myocardial infarction Surgical History H/O lithotripsy History of angioplasty of peripheral vessel (2016) History of angioplasty of peripheral vessel History of ankle surgery History of cardiac catheterization History of coronary artery stent placement (08/2016) History of coronary artery stent placement History of esophagogastroduodenoscopy (EGD) History of left heart catheterization (11/15/17) History of thyroid surgery Hx of lithotripsy Hx of surgery to heart and great vessels, presenting hazards to health Hx of surgical procedure Hx of thyroidectomy Hx of toe surgery Hx of toe surgery PEG (percutaneous endoscopic gastrostomy) status Social History household members: spouse housing: apartment Smoking Status: Never smoker alcohol intake: never substance use type: does not use ROS Constitutional Constitutional: Denies chills, fatigue, fever(s) or malaise Eyes Eyes: Denies blurry vision ENT HEENT: Denies headache(s) or nasal discharge Cardiovascular Cardiovascular: Denies chest pain, dyspnea on exertion or syncope Respiratory/Chest Respiratory/Chest: Reports cough and shortness of breath at rest; Denies shortness of breath with exertion Gastrointestinal Gastrointestinal: Denies constipation, diarrhea, nausea or vomiting Genitourinary Genitourinary: Denies dysuria Neurologic Neurologic: Denies focal weakness, numbness or tremor(s) Psychiatric Psychiatric: Denies anxiety or depression Vital Signs Vital Signs Vital Signs: 03/20/22 16:57 03/20/22 17:02 03/20/22 17:44 Temperature 99.9 F H 98.5 F Temperature Source Oral Oral Pulse Rate Respiratory Rate Respiratory Effort Normal Non-Labored Blood Pressure 127/58 H Blood Pressure Mean 81 Pulse Ox Oxygen Delivery Method Room Air Oxygen Flow Rate (L/min) 4 03/20/22 18:08 03/20/22 18:27 03/20/22 18:28 Temperature 98.5 F 98.5 F Temperature Source Oral Oral Pulse Rate 76 80 Respiratory Rate 16 18 Respiratory Effort Blood Pressure 122/68 H 135/63 H Blood Pressure Mean 86 87 Pulse Ox 97 97 Oxygen Delivery Method Room Air Oxygen Flow Rate (L/min) 03/20/22 19:17 03/20/22 19:42 03/20/22 20:07 Temperature 98.4 F Temperature Source Oral Pulse Rate 75 77 76 Respiratory Rate 15 12 15 Respiratory Effort Blood Pressure 115/78 98/84 H 115/50 L Blood Pressure Mean 90 88 71 Pulse Ox 98 99 98 Oxygen Delivery Method Nasal Cannula Nasal Cannula Room Air Oxygen Flow Rate (L/min) 4 4 03/20/22 20:11 03/20/22 20:13 03/20/22 21:05 Temperature 99.8 F H 99.8 F H 99.8 F H Temperature Source Temporal Temporal Temporal Pulse Rate 78 74 Respiratory Rate 16 15 Respiratory Effort Blood Pressure 115/50 L 115/61 Blood Pressure Mean 71 79 Pulse Ox 98 99 Oxygen Delivery Method Nasal Cannula Nasal Cannula Oxygen Flow Rate (L/min) 4 4 03/20/22 22:16 03/20/22 23:10 03/20/22 23:12 Temperature 99.1 F 98.3 F 98.3 F Temperature Source Temporal Temporal Temporal Pulse Rate 65 66 Respiratory Rate 13 14 Respiratory Effort Blood Pressure 104/64 106/69 Blood Pressure Mean 77 81 Pulse Ox 98 99 Oxygen Delivery Method Nasal Cannula Room Air Oxygen Flow Rate (L/min) 4 Weight Weight: 280 lb 3.32 oz Body Mass Index (BMI) 40.1 Physical Exam Const alert and oriented x3 General Appearance: cooperative HEENT normocephalic Mouth: dry mucous membranes Eyes PERRL, EOMs intact bilaterally and conjunctivae normal Neck supple and no JVD Resp normal respiratory effort, no retractions and no use of accessory muscles Auscultation: rhonchi right lower; Negative for crackles, rales or wheezes Cardio regular rate, regular rhythm, S1 normal heart sound, S2 normal heart sound and no murmurs GI soft to palpation, non-tender and non-distended; Negative for hepatosplenomegaly Extremity General Extremity: edema; Negative for clubbing or cyanosis Skin no rashes or lesions noted Neuro no focal motor deficits and no sensory deficits noted Psych affect normal Appearance: appropriate Results Lab / Micro Data Result Diagrams: 03/20/22 17:37 03/20/22 17:37 Labs: Laboratory Results - last 24 hr 03/20/22 17:37: WBC 16.5 H, RBC 4.05 L, Hgb 11.3 L, Hct 35.3 L, MCV 87.2, MCH 27.9, MCHC 32.0, RDW Std Deviation 45.5 H, RDW Coeff of James 14.3, Plt Count 185, MPV 11.6, Immature Gran % (Auto) 0.500, Neut % (Auto) 88.3 H, Lymph % (Auto) 5.1 L, [place] % (Auto) 5.5, Eos % (Auto) 0.4, Baso % (Auto) 0.2, Absolute Neuts (auto) 14.6 H, Absolute Lymphs (auto) 0.84, Nucleated RBC % 0 03/20/22 17:37: PT 14.2, INR 1.1, APTT 24.7 03/20/22 17:37: Sodium 140, Potassium 4.3, Chloride 103, Carbon Dioxide 31.0, Anion Gap 6, BUN 32 H, Creatinine 1.66 H, Estim Creat Clear Calc 47.03, Est GFR (MDRD) Af Amer 54 L, Est GFR (MDRD) Non-Af 45 L, BUN/Creatinine Ratio 19.3, Glucose 246 H, Calcium 9.3, Total Bilirubin 0.50, AST 21, ALT 27, Alkaline Phosphatase 113, Total Protein 7.5, Albumin 3.4, Globulin 4.1, Albumin/Globulin Ratio 0.8 L 03/20/22 17:37: Lactic Acid 4.2 H* 03/20/22 20:10: Urine Color Yellow, Urine Clarity Clear, Urine pH 5.0, Ur Specific [place] 1.020, Urine Protein Negative, Urine Glucose (UA) Normal, Urine Ketones Negative, Urine Occult Blood Negative, Urine Nitrite Negative, Urine Bilirubin Negative, Urine Urobilinogen Normal, Ur Leukocyte Esterase Negative, Urine RBC 0 SEEN, Urine WBC 0 SEEN, Ur Squamous Epith Cells 0-5 SEEN, Urine Bacteria 0 SEEN, Urine Mucus 0 SEEN 03/20/22 22:06: Lactic Acid 1.6 Radiology Impression Chest X-Ray 03/20/22 17:16 IMPRESSION: No acute cardiopulmonary process. Electronically Signed: Saeed Rodriguez MD at 17:55 EDT Reading Location ID and State: [facility] / [place] Tel , Service support , Assessment & Plan Assessment/Plan (1) Aspiration pneumonitis: (2) Chronic respiratory failure with hypoxia: (3) Acute kidney insufficiency: PLAN: 1. Chronic hypoxic respiratory failure with repeated aspiration pneumonitis/chronic COPD/CELESTE ? Now that his PEG tube is in place, can resume tube feeds ? We will make him n.p.o. and consult speech therapy to see if there is anything that he can eat orally for comfort ? I did educate the family and this as when I walked into the room his was feeding him a ham and cheese sandwich ? Consult nutrition for further recommendations and free flushes ? Continue with Unasyn ? Lactic acid has resolved with IV fluids ? PT/OT ? Renal function is elevated, will continue to monitor continue with IV fluids 2. HTN/HLD/chronic diastolic CHF/morbid obesity ? We will wait for his medications to be verified ? Blood pressures are stable ? Will resume his home medications via G-tube ? Will hold any diuretics secondary to CELESTE 3. DM2 with gastroparesis and polyneuropathy ? Continue with sliding scale insulin as well as long-acting insulin ? Accu-Cheks AC at bedtime ? We will make adjustments as necessary 4. Anxiety/depression ? Stable ? Can resume his home medications 5. GERD ? Stable ? Continue with PPI DVT: Lovenox Charges/Coding Visit Charges Inpatient E&M: 98015 Init Hosp L3
[2022-03-21] VITALS (8 sets, daily range): BP systolic 149–179; BP diastolic 78–100; PULSE 68–81; RESP 16–18; TEMP 36.6–36.7; O2SAT 97–100; BMI 39.9
[2022-03-21] MEDS: 0.9% Normal Saline 1,000 ML 75 ML IV ×2 (00:54→14:24)
[2022-03-21 06:13] LABS: Absolute Lymphocyte Count 2.44 X10^3/uL (0.83-4.51); Absolute Neutrophil Count 12.8 X10^3/uL (2.0-7.7); Basophil# 0.03 X10^3/uL; Basophil% 0.2 % (0-1); Eosinophil# 0.03 X10^3/uL; Eosinophils% 0.2 % (0-5); Hematocrit 32.6 % (40-54); Hemoglobin 10.2 g/dL (13.0-16.5); Lymphocyte # 2.44 X10^3/ul (0.83-4.51); Lymphocyte % 14.8 % (19-41); Mean Corp Hgb Conc 31.3 g/dL (32-36); Mean Corpuscular Hgb 27.7 pg (27.0-32.0); Mean Corpuscular Volume 88.6 fL (80-94); Mean Platelet Vol. 11.6 fl (6.2-12.0); Monocyte# 1.12 X10^3/uL; Monocyte% 6.8 % (0-10); NRBC Flagged by Analyzer 0 % (0-5); Neutrophil # 12.76 X10^3/uL (2.7-7.7); Neutrophil % 77.5 % (47-70); Platelet Count 161 K/mm3 (150-450); RBC Distribution Width CV 14.4 % (11.6-14.6); RBC Distribution Width SD 46.4 fl (35.1-43.9); Red Blood Count 3.68 M/mm3 (4.6-6.2); White Blood Count 16.5 K/mm3 (4.4-11.0)
[2022-03-21 06:35] LABS: Anion Gap 2 (5-15); BUN 24 mg/dL (7-18); BUN/Creat Ratio 21.4 RATIO (10-20); Calcium,Total 8.2 mg/dL (8.5-10.1); Chloride 110 mmol/L (98-107); Creatinine, Serum 1.12 mg/dL (0.70-1.30); EST Glomerular Filtration Rate 70 mL/min (>60); Est Glom Filt Rate - Afr Amer 85 mL/min (>60); Glucose 173 mg/dL (74-106); Sodium Level 141 mmol/L (136-145)
[2022-03-21] MEDS: Insulin Lispro 100 UNIT/ML INSULN.PEN SC ×3 (06:39→22:41)
[2022-03-21] MEDS: Vital AF 1.2 Cal Liquid 1,000 ML 90 ML GT (06:40)
[2022-03-21 08:06] LABS: Bedside Glucose 168 mg/dL (74-106)
[2022-03-21] MEDS: Enoxaparin 40 MG/0.4 ML Syringe SC (09:52)
--- NOTE | 2022-03-21 10:09 | PN.HOSP_ITS ---
Subjective Subjective Patient seen and examined. He said he felt much better today, and his breathing had improved. He denied any fever or chills, and admitted to an occasional nonproductive cough. Review of systems is otherwise negative. Objective Data Objective Data Vital Signs: Vital Signs Temp Pulse Resp BP Pulse Ox 98.0 F 68 16 174/81 H 97 03/21/22 06:06 03/21/22 06:06 03/21/22 06:06 03/21/22 06:06 03/21/22 07:27 Oxygen Flow Rate (L/min) 4 Oxygen Delivery Method Nasal Cannula Weight: 278 lb 6.4 oz Body Mass Index (BMI) 39.9 Intake & Output: Intake and Output for Last 24 Hours 03/19/22 03/20/22 03/21/22 23:59 23:59 23:59 Intake Total 3112 / 3112 1112 / 1112 Output Total 800 / 800 Balance 3112 / 3112 312 / 312 Lab / Micro Data Result Diagrams: 03/21/22 05:58 03/21/22 05:58 Labs: Laboratory Results - last 24 hr 03/20/22 17:37: WBC 16.5 H, RBC 4.05 L, Hgb 11.3 L, Hct 35.3 L, MCV 87.2, MCH 27.9, MCHC 32.0, RDW Std Deviation 45.5 H, RDW Coeff of [place] 14.3, Plt Count 185, MPV 11.6, Immature Gran % (Auto) 0.500, Neut % (Auto) 88.3 H, Lymph % (Auto) 5.1 L, [place] % (Auto) 5.5, Eos % (Auto) 0.4, Baso % (Auto) 0.2, Absolute Neuts (auto) 14.6 H, Absolute Lymphs (auto) 0.84, Nucleated RBC % 0 03/20/22 17:37: PT 14.2, INR 1.1, APTT 24.7 03/20/22 17:37: Sodium 140, Potassium 4.3, Chloride 103, Carbon Dioxide 31.0, Anion Gap 6, BUN 32 H, Creatinine 1.66 H, Estim Creat Clear Calc 47.03, Est GFR (MDRD) Af Amer 54 L, Est GFR (MDRD) Non-Af 45 L, BUN/Creatinine Ratio 19.3, Gl ucose 246 H, Calcium 9.3, Total Bilirubin 0.50, AST 21, ALT 27, Alkaline Phosphatase 113, Total Protein 7.5, Albumin 3.4, Globulin 4.1, Albumin/Globulin Ratio 0.8 L 03/20/22 17:37: Lactic Acid 4.2 H* 03/20/22 20:10: Urine Color Yellow, Urine Clarity Clear, Urine pH 5.0, Ur Specific [place] 1.020, Urine Protein Negative, Urine Glucose (UA) Normal, Urine Ketones Negative, Urine Occult Blood Negative, Urine Nitrite Negative, Urine Bilirubin Negative, Urine Urobilinogen Normal, Ur Leukocyte Esterase Negative, Urine RBC 0 SEEN, Urine WBC 0 SEEN, Ur Squamous Epith Cells 0-5 SEEN, Urine Bacteria 0 SEEN, Urine Mucus 0 SEEN 03/20/22 22:06: Lactic Acid 1.6 03/21/22 05:58: WBC 16.5 H, RBC 3.68 L, Hgb 10.2 L, Hct 32.6 L, MCV 88.6, MCH 27.7, MCHC 31.3 L, RDW Std Deviation 46.4 H, RDW Coeff of [place] 14.4, Plt Count 16 1, MPV 11.6, Immature Gran % (Auto) 0.500, Neut % (Auto) 77.5 H, Lymph % (Auto) 14.8 L, [place] % (Auto) 6.8, Eos % (Auto) 0.2, Baso % (Auto) 0.2, Absolute Neuts (auto) 12.8 H, Absolute Lymphs (auto) 2.44, Nucleated RBC % 0 03/21/22 05:58: Sodium 141, Potassium 4.0, Chloride 110 H, Carbon Dioxide 29.0, Anion Gap 2 L, BUN 24 H, Creatinine 1.12, Estim Creat Clear Calc 69.70, Est GFR (MDRD) Af Amer 85, Est GFR (MDRD) Non-Af 70, BUN/Creatinine Ratio 21.4 H, Glucose 173 H, Calcium 8.2 L 03/21/22 06:33: POC Glucose 168 H Radiography Diagnostic Testing: Radiology Impression Chest X-Ray 03/20/22 17:16 IMPRESSION: No acute cardiopulmonary process. Electronically Signed: Saeed Rodriguez MD at 17:55 EDT , Physical Exam Const alert, oriented x3 and no apparent distress Exam Limitations: no limitations HEENT head/scalp atraumatic and moist oral mucous membranes Head and Scalp: normocephalic Eyes PERRL, EOMs intact bilaterally and conjunctivae normal Neck no lymphadenopathy, supple and no JVD Resp Resp Narrative: diminished breath sounds bibasally, no wheezes or crackles. On 4L of oxygen which is his baseline. Cardio regular rate, regular rhythm, S1 normal heart sound, S2 normal heart sound and no murmurs GI normal to inspection, nondistended, normoactive bowel sounds, soft to palpation, non-tender and non-distended Extremity normal to inspection, full ROM and no clubbing, cyanosis or edema Peripheral Pulses: Yes pulses 2+ throughout Skin no rashes or lesions noted Neuro oriented x3, CN's II-XII intact bilaterally and moves all extremities Sensorium / Orientation: awake and alert Psych affect normal Assessment & Plan Assessment/Plan (1) Aspiration pneumonitis: PLAN: #Aspiration pneumonia * WBC 16.5 today. * says his PEG tube was dislodged, but this has been fixed by his senior mobile application developer * on tube feeds; currently NPO pending speech therapy evaluation * on IV unasyn * #Lactic acidosis; resolved with hydration. Will trend. #Chronbic hypoxic respiratory failure due to COPD * On his baseline 4 L of oxygen. * Titrate oxygen to maintain saturation above 90%. Breathing treatments bronchodilators. #Hypertension: on carvedilol and losartan #Hyperlipidemia: on atorvastatin #HFpEF;on lasix and furosemide. #CAD: on imdur, carvedilol #Anxiety and depression: on xanax #GERD: on PPI #Type 2 diabetes mellitus with peripheral neuropathy * Lantus on hold as per sepsis currently n.p.o. * Insulin sliding scale. Accu-Cheks ACHS. * DVT prophylaxis: Lovenox Charges/Coding Visit Charges Inpatient E&M: 54249 Subs Hosp L2
[2022-03-21 11:11] LABS: Bedside Glucose 188 mg/dL (74-106)
--- NOTE | 2022-03-21 13:32 | NS ---
Pt's PEG replaced 03/19/[address] Rodriguez and it has a different connection than his old PEG so he does not have appropriate supplies at home. Updated script for enteral supplies initiated- just needs physician signature and faxed to [place] prior to discharge. Script and fax cover sheet given to Everardo Webber MS, RDN, LD
--- NOTE | 2022-03-21 14:55 | CASEMGMT ---
RN LIZETT readmission note: Prior admission: Admitted 02/22/22 w/aspiration PNA. Discharged home 02/23/22. Pt has hx of aspiration PNA and has feeding tube. [facility] Dehydrator Tender sees pt @ his home for OP nutrition consults. Palliative referral has been made/pt signed consent 01/14/22 but had not had initial visit yet. Current admission: Admitted 03/20/22 w/aspiration pneumonitis and CELESTE. Pt's PEG tubing was not working properly and was replaced by Dr Rodriguez 03/19/22. Pt has been continued to eat orally. RN CM to room to talk w/pt. Introduced self and role of RN LIZETT. Pt provided much of the following information, but call was also placed to pt's sig other, She, while RN LIZETT in room w/pt to obtain further information. Since discharge on 02/23/22 pt has went to all scheduled appts, including Dr Brown, Dr Larkin, Dr Rodriguez, and his psychiatrist. Pt has upcoming appt w/psychiatrist on 04/07 and appts in April for Dr Brown and Dr Rodriguez. Pt has been taking his medication as prescribed. Pt has CM through [employer], Nuria Meeks. Pt has waiver and aides from [place], who come 5 days a week for 3 hrs/day. Pt has home O2 through [employer] @ 2l/m @ rest and 4 l/m w/exertion. She states she can bring in portable O2 tank @ d/c. Pt has 2 pulse oxes @ home. She states a nurse is scheduled to see pt March 30. She thinks nurse may be from [facility], but she is not sure. Pt and She would both like for pt to return home and both decline need for HHC for SN or therapy. They would like to resume [facility] carpet jack OP visits as previously. Pt and She deny having any further home-going needs or concerns. Pt will need script faxed to [place] for new connection to new PEG tube and appropriate supplies at home. Script has been initiated by Ela/carpet jack and awaiting MD signature. Zelalem BACA RN, CM
--- NOTE | 2022-03-21 15:18 | NURSING ---
pt fiance at bedside and states that at home pt uses a feeding pump to receive his tubefeedings, states he does not do gravity feedings as pt stated to staff. pt and spouse verbalize understanding of pt safety/aspiration risks and are agreeable to tube feeding to be given via kangaroo pump. pharmacy aware to send up pump.
[2022-03-21] MEDS: Vital AF 1.2 Cal Liq 1,500 ML 400 ML GT ×2 (16:11→22:41)
--- NOTE | 2022-03-21 16:24 | NURSING ---
blood sugar obtained, pt states he would like to check it against his genie 14 days to see how they compare. pt genie reads at same time 135.
[2022-03-21 16:30] LABS: Bedside Glucose 143 mg/dL (74-106)
[2022-03-21 22:51] LABS: Bedside Glucose 204 mg/dL (74-106)
[2022-03-22] VITALS (7 sets, daily range): BP systolic 146–197; BP diastolic 67–98; PULSE 63–82; RESP 16–18; TEMP 36.8–37.1; O2SAT 98–100
[2022-03-22] MEDS: ALPRAZolam 0.5 MG Tablet GT ×2 (02:17→11:18)
[2022-03-22] MEDS: 0.9% Normal Saline 1,000 ML 75 ML IV ×2 (02:17→16:47)
[2022-03-22] MEDS: Vital AF 1.2 Cal Liq 1,500 ML 400 ML GT ×3 (05:31→21:59)
[2022-03-22] MEDS: Insulin Lispro 100 UNIT/ML INSULN.PEN SC ×4 (05:38→21:45)
[2022-03-22 05:51] LABS: Bedside Glucose 211 mg/dL (74-106)
[2022-03-22 06:15] LABS: Absolute Lymphocyte Count 1.81 X10^3/uL (0.83-4.51); Absolute Neutrophil Count 8.4 X10^3/uL (2.0-7.7); Basophil# 0.04 X10^3/uL; Basophil% 0.4 % (0-1); Eosinophil# 0.08 X10^3/uL; Eosinophils% 0.7 % (0-5); Hematocrit 35.3 % (40-54); Hemoglobin 11.3 g/dL (13.0-16.5); Lymphocyte # 1.81 X10^3/ul (0.83-4.51); Lymphocyte % 16.1 % (19-41); Mean Corpuscular Hgb 27.8 pg (27.0-32.0); Mean Corpuscular Volume 86.7 fL (80-94); Mean Platelet Vol. 11.7 fl (6.2-12.0); NRBC Flagged by Analyzer 0 % (0-5); Neutrophil # 8.37 X10^3/uL (2.7-7.7); Neutrophil % 74.5 % (47-70); Platelet Count 157 K/mm3 (150-450); RBC Distribution Width CV 14.1 % (11.6-14.6); RBC Distribution Width SD 44.8 fl (35.1-43.9); Red Blood Count 4.07 M/mm3 (4.6-6.2); White Blood Count 11.2 K/mm3 (4.4-11.0)
[2022-03-22 06:35] LABS: Anion Gap 6 (5-15); BUN 15 mg/dL (7-18); Calcium,Total 8.4 mg/dL (8.5-10.1); Chloride 107 mmol/L (98-107); Creatinine, Serum 0.83 mg/dL (0.70-1.30); EST Glomerular Filtration Rate 99 mL/min (>60); Est Glom Filt Rate - Afr Amer 120 mL/min (>60); Estimated Creatinine Clearance 94.06 ml/min; Glucose 218 mg/dL (74-106); Potassium 3.9 mmol/L (3.5-5.1); Sodium Level 138 mmol/L (136-145)
--- NOTE | 2022-03-22 07:22 | PN.HOSP_ITS ---
Subjective Subjective Patient seen and examined. He feels well and had his only complaint was that he wasnt able to sleep well last night. His breathing is at baseline and he is on his usual 4L of oxygen. Review of systems is otherwise negative. He says he is due for a modified barium swallow tomorrow. Objective Data Objective Data Vital Signs: Vital Signs Temp Pulse Resp BP Pulse Ox 98.3 F 82 16 159/96 H 98 03/22/22 03:20 03/22/22 03:20 03/22/22 03:20 03/22/22 03:20 03/22/22 05:00 Oxygen Flow Rate (L/min) 4 Oxygen Delivery Method Nasal Cannula Weight: 278 lb 6.396 oz Body Mass Index (BMI) 39.9 Intake & Output: Intake and Output for Last 24 Hours 03/20/22 03/21/22 03/22/22 23:59 23:59 23:59 Intake Total 3112 / 3112 2774 / 2774 1115.25 / 1115.25 Output Total 1600 / 1600 1000 / 1000 Balance 3112 / 3112 1174 / 1174 115.25 / 115.25 Lab / Micro Data Result Diagrams: 03/22/22 05:30 03/22/22 05:30 Labs: Laboratory Results - last 24 hr 03/21/22 06:33: POC Glucose 168 H 03/21/22 11:06: POC Glucose 188 H 03/21/22 16:24: POC Glucose 143 H 03/21/22 22:37: POC Glucose 204 H 03/22/22 05:30: WBC 11.2 H, RBC 4.07 L, Hgb 11.3 L, Hct 35.3 L, MCV 86.7, MCH 27.8, MCHC 32.0, RDW Std Deviation 44.8 H, RDW Coeff of [place] 14.1, Plt Count 157, MPV 11.7, Immature Gran % (Auto) 0.300, Neut % (Auto) 74.5 H, Lymph % (Auto) 16.1 L, [place] % (Auto) 8.0, Eos % (Auto) 0.7, Baso % (Auto) 0.4, Absolute Neuts (auto) 8.4 H, Absolute Lymphs (auto) 1.81, Nucleated RBC % 0 03/22/22 05:30: Sodium 138, Potassium 3.9, Chloride 107, Carbon Dioxide 25.0, Anion Gap 6, BUN 15, Creatinine 0.83, Estim Creat Clear Calc 94.06, Est GFR (MDRD) Af Amer 120, Est GFR (MDRD) Non-Af 99, BUN/Creatinine Ratio 18.0, Glucose 218 H, Calcium 8.4 L 03/22/22 05:35: POC Glucose 211 H Physical Exam Const alert, oriented x3 and no apparent distress General Appearance: cooperative Exam Limitations: no limitations HEENT normocephalic, head/scalp atraumatic and moist oral mucous membranes Head and Scalp: normocephalic Eyes PERRL, EOMs intact bilaterally and conjunctivae normal Neck no lymphadenopathy, supple and no JVD Resp Resp Narrative: diminished breath sounds bibasally, no wheezes or crackles. On 4L of oxygen which is his baseline. Auscultation: Negative for crackles, rales or wheezes Cardio regular rate, regular rhythm, S1 normal heart sound, S2 normal heart sound and no murmurs GI normal to inspection, nondistended, normoactive bowel sounds, soft to palpation, non-tender and non-distended; Negative for hepatosplenomegaly Extremity normal to inspection, full ROM and no clubbing, cyanosis or edema General Extremity: edema; Negative for clubbing or cyanosis Skin no rashes or lesions noted Neuro oriented x3, CN's II-XII intact bilaterally, moves all extremities, no focal motor deficits and no sensory deficits noted Sensorium / Orientation: awake and alert Psych affect normal Appearance: appropriate Assessment & Plan Assessment/Plan (1) Aspiration pneumonitis: PLAN: #Aspiration pneumonia * WBC is down to 11.2 today. * says his PEG tube was dislodged, but this has been fixed by his pearl fisherman * on tube feeds; currently NPO pending speech therapy evaluation * on IV unasyn * #Lactic acidosis; resolved with hydration. Will trend. #Chronic hypoxic respiratory failure due to COPD * On his baseline 4 L of oxygen. * Titrate oxygen to maintain saturation above 90%. Breathing treatments bronchodilators. #Dysphagia * this is chronic. Has PEG tube in place * PEG tube was recently dislodged, but fixed by his pearl fisherman * case management informs me that he doesnt have the correct connection for his new PEG tube, and doesnt have appropriate supplies at home for enteral feedings; this cannot be obtained till Wednesday03/23/2022 * for modified barium swallow test tomorrow per speech therapy * #Hypertension: on carvedilol and losartan #Hyperlipidemia: on atorvastatin #HFpEF;on lasix and furosemide. #CAD: on imdur, carvedilol #Anxiety and depression: on xanax #GERD: on PPI #Type 2 diabetes mellitus with peripheral neuropathy * Insulin sliding scale. Accu-Cheks ACHS. * DVT prophylaxis: Lovenox Disposition: * for dc home likely tomorrow once he has the appropriate supplies for enteral feeding for his PEG tube and MBSS is done. Charges/Coding Visit Charges Inpatient E&M: 99107 Subs Hosp L2
[2022-03-22] MEDS: 0.9% Saline Lock 10 ML Syringe IV ×2 (09:54→11:19)
[2022-03-22] MEDS: Ondansetron 4 MG/2 ML Vial IV (09:54)
[2022-03-22] MEDS: Enoxaparin 40 MG/0.4 ML Syringe SC (09:54)
[2022-03-22] MEDS: hydrALAZINE 20 MG/ML Vial 10 MG IV (11:18)
--- NOTE | 2022-03-22 11:34 | NURSING ---
spouse at bedside, endorses that pt takes ZERO meds by mouth at home, she crushes them and puts in through his PEG tube
[2022-03-22 12:41] LABS: Bedside Glucose 236 mg/dL (74-106)
[2022-03-22] MEDS: busPIRone 15 MG TABLET 7.5 MG PO ×2 (14:04→21:43)
[2022-03-22] MEDS: FLUoxetine 20 MG Capsule PO (14:05)
[2022-03-22] MEDS: Fluoxetine HCl 40 MG CAPSULE PO (14:05)
[2022-03-22] MEDS: Loratadine 10 MG Tablet PO (14:05)
[2022-03-22] MEDS: Metoclopramide 5 MG TABLET PO ×2 (14:05→21:44)
[2022-03-22] MEDS: Furosemide 40 MG Tablet PO (14:05)
[2022-03-22] MEDS: Aspirin 81 MG TAB.CHEW PO (14:06)
[2022-03-22] MEDS: Lansoprazole 15 MG Capsule.DR PO (14:06)
[2022-03-22] MEDS: amLODIPine 5 MG Tablet PO (14:06)
[2022-03-22] MEDS: Carvedilol 12.5 MG Tablet PO ×2 (14:06→21:44)
[2022-03-22] MEDS: Clopidogrel Bisulfate 75 MG Tablet PO (14:07)
[2022-03-22] MEDS: Losartan Potassium 50 MG Tablet PO (14:07)
[2022-03-22] MEDS: Finasteride 5 MG Tablet PO (14:08)
[2022-03-22] MEDS: Pregabalin 75 MG Capsule PO ×2 (14:09→21:45)
[2022-03-22] MEDS: Isosorbide Mononitrate 30 MG Tablet PO (14:09)
[2022-03-22 16:50] LABS: Bedside Glucose 224 mg/dL (74-106)
[2022-03-22] MEDS: traZODone 100 MG Tablet PO (21:44)
[2022-03-22] MEDS: Atorvastatin Calcium 80 MG Tablet PO (21:44)
[2022-03-22] MEDS: ALPRAZolam 0.5 MG Tablet PO (21:44)
[2022-03-22] MEDS: Insulin Glargine-YFGN 100 UNIT/ML Pen 40 UNIT SC (21:45)
[2022-03-22 22:06] LABS: Bedside Glucose 220 mg/dL (74-106)
[2022-03-23 02:00] VITALS: BP 153/82; PULSE 56; RESP 18; TEMP 36.9; O2SAT 100
[2022-03-23] MEDS: Vital AF 1.2 Cal Liq 1,500 ML 400 ML GT (06:04)
[2022-03-23] MEDS: busPIRone 15 MG TABLET 7.5 MG PO ×2 (06:06→14:20)
[2022-03-23] MEDS: Insulin Lispro 100 UNIT/ML INSULN.PEN SC ×2 (06:06→11:50)
[2022-03-23] MEDS: 0.9% Normal Saline 1,000 ML 75 ML IV (06:21)
[2022-03-23 06:27] LABS: Absolute Neutrophil Count 5.9 X10^3/uL (2.0-7.7); Basophil# 0.03 X10^3/uL; Basophil% 0.3 % (0-1); Eosinophil# 0.13 X10^3/uL; Eosinophils% 1.4 % (0-5); Hematocrit 32.5 % (40-54); Hemoglobin 9.8 g/dL (13.0-16.5); Lymphocyte % 21.8 % (19-41); Mean Corp Hgb Conc 30.2 g/dL (32-36); Mean Corpuscular Hgb 27.2 pg (27.0-32.0); Mean Corpuscular Volume 90.3 fL (80-94); Mean Platelet Vol. 11.8 fl (6.2-12.0); Monocyte# 1.05 X10^3/uL; Monocyte% 11.5 % (0-10); NRBC Flagged by Analyzer 0 % (0-5); Neutrophil # 5.91 X10^3/uL (2.7-7.7); Neutrophil % 64.5 % (47-70); Platelet Count 148 K/mm3 (150-450); RBC Distribution Width CV 14.4 % (11.6-14.6); RBC Distribution Width SD 47.7 fl (35.1-43.9); White Blood Count 9.2 K/mm3 (4.4-11.0)
[2022-03-23 06:31] LABS: Bedside Glucose 161 mg/dL (74-106)
[2022-03-23 06:47] LABS: Anion Gap 3 (5-15); BUN 23 mg/dL (7-18); Calcium,Total 8.1 mg/dL (8.5-10.1); Chloride 108 mmol/L (98-107); Creatinine, Serum 1.15 mg/dL (0.70-1.30); EST Glomerular Filtration Rate 68 mL/min (>60); Est Glom Filt Rate - Afr Amer 83 mL/min (>60); Estimated Creatinine Clearance 67.89 ml/min; Glucose 181 mg/dL (74-106); Potassium 4.1 mmol/L (3.5-5.1); Sodium Level 141 mmol/L (136-145)
[2022-03-23 08:35] VITALS: BP 148/74; PULSE 72; RESP 20; TEMP 36.7; O2SAT 99
--- NOTE | 2022-03-23 10:50 | CASEMGMT ---
Addendum entered by Adriana Fernando 03/23/22 15:54: Pt sig other present in room. Reviewed TF with her and pt, pt nurse also in the room. She is aware of ST need. She asks if [facility] has ST. TC to them and they do not offer ST. She is aware that pt can go to [facility]. Pt/sig other deny further needs. Addendum entered by Adriana Fernando 03/23/22 14:29: RN LIZETT in to pt room with outpt ST script. Pt denies need for RN CM to set this up. Pt states he will do this but does not understand why he needs to. RN LIZETT attempted to make pt aware d/t his current diagnosis and past hx of same, the physician would like this. Pt reluctantly agreed. Pt sig other on her way to the hospital, [facility] [place] to speak with her as well when she arrives. Pt nurse present in room as well. Addendum entered by Adriana Fernando 03/23/22 12:35: TC to underground miner [place] after speaking with pt. She states she has updated Dominic as pt now will continue to use feeding pump for feeds. Pt denies need for HHC, states his sig other is at [facility] with their son but will continue the feedings. Pt denies any further homegoing needs. Original Note: Faxed [facility] for supplies for gravity feeds.
--- NOTE | 2022-03-23 11:14 | SP.MBSS_ITS ---
Modified Barium Swallow - Patient Information Study Date: 03/23/22 Study Time: 10:00 Direct Billable Minutes: 135 Total Minutes procedure & reportin Diagnosis: Aspiration pneumonitis (J69.0) Referring Physician: Alicia Larkin Reason for Referral: Objectively assess swallow function, risk for aspiration, and determine recommendations for least restrictive diet textures and compensatory strategies to improve safety of swallow. Medical History: Raheem Linda is a 61-year-old white male who presented to the emergency department at [facility] 03/20/22 with cough and shortness of breath. He has been hospitalized 5X in the past 6-7 months for recurrent aspiration PNA. The patient had a PEG tube placed 11/12/2022 after most recent MBS study, which is listed below, due to concerns for reflux aspiration. Prior to admission, the patient?s PEG tube became clogged, and he was having all food/drink by mouth. He was recommended NPO with FFWP per LIVESTOCK SALES REPRESENTATIVE upon admission with recommendation for repeat MBS study. PMH includes silent aspiration, aspiration pneumonia, COPD, bronchiectasis with exacerbation, anxiety, chronic respiratory failure, mood disorder, HTN, NSTEMI, GERD, DM Type II, gastroparesis (SEE H&P for full past medical history). 11/12/2022 PEG tube placed due to concern for aspiration of reflux. 11/11/22 MBS revealed laryngeal penetration of sequential sips of thin liquids with full ejection of contrast from the laryngeal vestibule. No aspiration. Recommendations - Minced and Moist Textures (IDDSI Level 5), Thin Liquids Comment: Smaller, more frequent meals throughout the day. Compensatory Strategies: Small Bites, Small Sips, Slow Rate, Multiple Swallows - Intermittent use of double swallows with food and drinks., Sitting upright, Remain sitting upright for 30 minutes after PO intake. 09/04/21 MBS revealed no laryngeal penetration/aspiration across all trials. Recommendations - Regular Texture (IDDSI: 7)/Thin Liquid (IDDSI: 0). Compensatory Strategies Recommended: reduced bolus volume (small bites/sips), reduced rate of intake (eat slowly), double swallow as needed to clear oral/pharyngeal residue, seated upright at 90 degrees during PO intake, remain upright for 30-60 minutes post meal (GERD precaution). Current Diet Ordered: NPO with FFWP Dentition: Missing Teeth Mental Status: WNL Respiratory Status: Oxygenating on 4L/M nasal cannula - Penetration-Aspiration Scale Penetration-Aspiration Scale: OBJECTIVE ASSESSMENT OF SWALLOW FUNCTION (QUANTITATIVE ? PER TRIAL): PENETRATION / ASPIRATION SCALE (SANCHEZ): 1 = does not enter airway 2 = enters airway/above vocal folds/ejected 3 = enters airway/above vocal folds/not ejected 4 = enters airway/contacts vocal folds/ejected 5 = enters airway/contacts vocal folds/not ejected 6 = enters airway/below vocal folds/ejected 7 = enters airway/below vocal folds/not ejected despite effort 8 = enters airway/below vocal folds/no effort VIDEOFLOROSCOPIC SCALE SCORE (SANCHEZ): Grade I = aspiration of material that has penetrated into the laryngeal vestibule, intact cough reflex Grade II = aspiration < 10 % of the bolus, intact cough reflex Grade III = aspiration of < 10 % of the bolus, reduced cough reflex or aspiration of > 10 % of the bolus, intact cough reflex Grade IV = aspiration of > 10 % of the bolus, reduced cough reflex - Penetration-Aspiration Scale Score Thin Liquid via teaspoon Result: 1= does not enter airway Thin Liquid via teaspoon Trial 2 Result: 1= does not enter airway Thin Liquid via small single sip from cup Result: 1= does not enter airway Thin Liquid via large single sip from cup Result: 1= does not enter airway Thin Liquid via sequential sips from cup Result: 3= enters airways/above vocal folds/not ejected Comment: Cough reflex following sip. Cued second cough and re-swallow to clear trace residue in laryngeal vestibule. [place] Thick Liquid via small single sip from cup Result: 1= does not enter airway Honey Thick Liquid via small single sip from cup Result: 1= does not enter airway Honey Thick Liquid via small single sip from cup Trial 2 Result: 1= does not enter airway Pudding via teaspoon with esophageal screen Result: 1= does not enter airway - Timely esophageal clearance Whole cookie with esophageal screen Result: 1= does not enter airway - Retention of cookie contrast in upper and mid esophagus with retrograde flow below UES Thin Liquid via single sip from straw Result: 1= does not enter airway Thin Liquid via sequential sips from straw Result: 2= enter airway/above vocal folds/ejected Thin Liquid via small single sip from cup Trial 2 Result: 1= does not enter airway - Oral Phase Labial Seal: No Labial Escape Tongue Control During Bolus Hold: Posterior escape of less than half of bolus Bolus Preparation/Mastication: Slow prolonged chewing/mashing with complete recollection Bolus Transport/Lingual Motion: Repetitive/disorganized tongue motion Oral Residue: Residue collection on oral structures - piecemeal deglutition of cookie - Pharyngeal Phase Initiation of Pharyngeal Swallow: Bolus head in pyriforms Soft Palate Elevation: Trace column of contrast/air between soft palate and pharyngeal wall Laryngeal Elevation: Partial superior movement thyroid cart/partial apprx aryt- epig petiole Anterior Hyoid Excursion: Partial anterior movement Epiglottic Movement: Complete inversion Laryngeal Vestibule Closure at Height of Swallow: Incomplete; narrow column of air/contrast in laryngeal vestibule Pharyngeal Stripping Wave: Present - diminished Pharyngoesophageal Segment Opening: Parital distension and partial duration; parital obstruction of flow Tongue Base Retraction: Narrow column of contrast between tongue base & post. pharyngeal wall Pharyngeal Residue: Collection of residue within or on pharyngeal structures - Esophageal Phase Esophageal Clearance: Esophageal retention w/ retrograde flow below pharyngoesophageal seg. - Treatment Strategies Effects of treatment strategies attemped:: Decreased bolus rate = effective. - Diagnosis/Impression Diagnosis: oropharyngeal dysphagia (R13.12), pharyngoesophageal dysphagia (R13.14) Impression: The oral phase is primarily marked by decreased bolus control with premature posterior loss of liquids bolus to the pyriforms prior to swallow onset. He additionally presented with prolonged mastication of cookie and required piecemeal deglutition to clear bite. He has lingual pumping during A-P transport. The pharyngeal phase is marked by mildly decreased airway closure and delayed swallow onset. He presents with mildly decreased anterior hyoid excursion and laryngeal elevation. He did achieve full epiglottic inversion during the study. He also presents with decreased tongue base retraction and decreased duration of UES opening resulting in mild pharyngeal residues after the swallow. No aspiration observed during the study. He did demonstrate laryngeal penetration of thin liquids when consumed via sequential sips. SEE PAS scores above for further details regarding laryngeal penetration/aspiration. The esophageal phase is marked by retention of cookie bolus with retrograde flow below UES. Cannot rule out of risk for aspiration of reflux. Will recommended modified diet and STRICT reflux precautions. - Recommendations Diet: Mechanical Soft Textures - Minced and Moist Textures (IDDSI Level 5), Thin Liquids Comment: Frequent oral care before and after all meals; 4-5 smaller meals daily as compared to 3 large meals. Supplement oral intake via PEG tube if unable to maintain adequate nutrition and hydration with current diet recommendations and precautions.If the patient is unable to adhere to recommended diet and aspiration precautions, will recommend nutrition/hydration via PEG tube. Compensatory Strategies: Small Bites, Small Sips, Slow Rate - Sips one at a time, Sitting upright, Remain sitting upright for 30 minutes after PO intake - 60 minutes after oral intake Supervision: 1:1 Close Supervision Recommend Repeat Modified Barium Swallow: TBD Need for Skilled Speech Therapy Services: Yes Comment: The patient would benefit from thorough education regarding diet recommendations and recommended compensatory strategies to decrease his risk of aspiration or oral intake, as well as reflux aspiration. LIVESTOCK SALES REPRESENTATIVE provided the patient written recommendations for diet preparation of minced and moist textures. Education Completed: 1. Described result of evaluation., 7. Pt requires further education on strategies & risks. - Status Active ST Patient: Active - Contact Information [facility] Speech Therapy:: Marva Amaro M.A. [facility]-[employer] SAL[employer] REPRESENTATIVE Speech-Language Pathologist [facility] [address] [place] [address] [phone] 03/23/22 11:36
[2022-03-23 11:44] VITALS: BP 176/89; PULSE 77; RESP 18; TEMP 36.8; O2SAT 98
[2022-03-23] MEDS: FLUoxetine 20 MG Capsule PO (11:46)
[2022-03-23] MEDS: amLODIPine 5 MG Tablet PO (11:46)
[2022-03-23] MEDS: Clopidogrel Bisulfate 75 MG Tablet PO (11:46)
[2022-03-23] MEDS: Isosorbide Mononitrate 30 MG Tablet PO (11:47)
[2022-03-23] MEDS: Lansoprazole 15 MG Capsule.DR PO (11:47)
[2022-03-23] MEDS: Spironolactone 50 MG Tablet PO (11:47)
[2022-03-23] MEDS: Fluoxetine HCl 40 MG CAPSULE PO (11:48)
[2022-03-23] MEDS: Furosemide 40 MG Tablet PO (11:48)
[2022-03-23] MEDS: Enoxaparin 40 MG/0.4 ML Syringe SC (11:48)
[2022-03-23] MEDS: Losartan Potassium 50 MG Tablet PO (11:49)
[2022-03-23] MEDS: Carvedilol 12.5 MG Tablet PO (11:54)
[2022-03-23] MEDS: ALPRAZolam 0.5 MG Tablet PO (11:54)
[2022-03-23] MEDS: Pregabalin 75 MG Capsule PO (11:54)
[2022-03-23] MEDS: Finasteride 5 MG Tablet PO (11:54)
[2022-03-23] MEDS: Loratadine 10 MG Tablet PO (11:54)
[2022-03-23] MEDS: Aspirin 81 MG TAB.CHEW PO (11:54)
[2022-03-23] MEDS: Metoclopramide 5 MG TABLET PO (11:57)
[2022-03-23 12:11] LABS: Bedside Glucose 252 mg/dL (74-106)
--- NOTE | 2022-03-23 12:43 | PCM.DC.SUM ---
Providers Date of Admission: 03/20/22 Date of Discharge: 03/23/22 Primary Care Physician: Dr. Doretha Brown MD Reason For Visit: ASPIRATION PNEUMONITIS WITH CELESTE Diagnosis Discharge Diagnosis (1) Aspiration pneumonitis: Status: Acute Code(s): J69.0 - Pneumonitis due to inhalation of food and vomit Medications at Discharge Home Medications acetaminophen 1,000 mg PO QHS PRN PRN 02/11/21 aspirin 81 mg tablet,delayed release 81 mg PO DAILY 11/05/21 spironolactone 40 mg PO DAILY 11/08/21 Artificial Tears([id number]) 2 drp EACH EYE Q1H PRN #0 ml 11/14/21 loratadine [Allergy Relief (loratadine)] 10 mg G-TUBE DAILY #0 tab 11/14/21 isosorbide mononitrate 30 mg tablet,extended release 24 hr 30 mg PO DAILY #90 tab 11/25/21 metoclopramide HCl 5 mg tablet 5 mg PO BID #30 tab 11/25/21 nitroglycerin 0.4 mg sublingual tablet 0.4 mg SL Q5M PRN #30 tab 11/25/21 trazodone 100 mg tablet 100 mg G-TUBE QHS #90 tab 11/25/21 gauze bandage 4 X 4 sponge #1 ea 11/27/21 atorvastatin 80 mg tablet 80 mg PO QHS #90 tab 01/09/22 clopidogrel 75 mg tablet 75 mg PO DAILY #90 tab 01/09/22 finasteride 5 mg tablet 5 mg PO DAILY #90 tab 01/09/22 furosemide 40 mg tablet 40 mg PO DAILY #90 tab 01/09/22 pregabalin 75 mg capsule 75 mg PO BID #60 cap 01/09/22 insulin lispro 100 unit/mL subcutaneous pen 1 sliding scale dose SUBCUT .5 times daily ml 01/27/22 albuterol sulfate 90 mcg/actuation aerosol inhaler 2 puff INHALATION Q4H PRN #8.5 g 02/04/22 pantoprazole 20 mg tablet,delayed release 20 mg PO DAILY tab 02/04/22 carvedilol 12.5 mg tablet 12.5 mg PO BID #180 tab 02/05/22 Vital AF 1.2 Will 90 ml FEEDING TUBE TID 02/22/22 insulin lispro 10 unit SUBCUT 5X/DAY 02/22/22 buspirone 7.5 mg tablet 7.5 mg PO TID #90 tab 03/09/22 fluoxetine 20 mg capsule 20 mg PO DAILY #90 cap 03/09/22 fluoxetine 40 mg capsule 40 mg PO DAILY #90 cap 03/09/22 syringe, ENFit, non-sterile 60 mL #30 ea 03/20/22 alprazolam 0.5 mg PO BID 03/21/22 amlodipine 5 mg G-TUBE DAILY 03/21/22 insulin detemir U-100 40 unit SUBCUT QHS 03/21/22 losartan 50 mg PO DAILY 03/21/22 amoxicillin-pot clavulanate [Augmentin XR] 1 tab PO BID #10 tab 03/23/22 Hospital Course Operations None Procedures - (Modified barium swallow) Summary of Care Provided Minutes Spent on Discharge: 39 Hospital Course: Mr. Linda is a 62-year-old white male who presented to emergency department was [facility] on 03/20/2022 with cough and shortness of breath. The patient is well-known to our service as he has frequent admissions for aspiration pneumonia/pneumonitis. He recently had a PEG tube placed and it appears that it became dislodged for a week or so prior to presentation and he had been eating orally since that time. He did follow-up as an outpatient with gastroenterology who replaced his PEG tube however he continued to eat orally and it appeared that he had aspirated. He is on baseline oxygen at 4 L and it appears that he has been that way through his entire hospitalization course. It is documented that he had fever however his T-max was 99.9 on the day of admission that is documented that his breathing was normal and nonlabored however it is documented that he had abnormal auscultatory findings. He was initiated on Unasyn at admission. He had an elevated lactate that was greater than 4 at admission so he did receive a 30 cc kilogram bolus of normal saline and a sepsis work-up was initiated however the patient did not meet sepsis criteria at all during his hospitalization. Within 24 hours of admission his breathing improved dramatically and he had no further fever or chills through the night and only an occasional nonproductive cough. Given his recurrent aspiration of another modified barium swallow was performed this was done on 03/23/2022 at which time the patient was found to be cleared for a mechanical soft and thin liquid diet. Compensatory strategies were reviewed with the patient and it was recommended he follow-up with outpatient speech therapy after discharge. He was educated on the importance of following his diet restrictions with strict adherence to avoid recurrent admissions for aspiration issues. He was discharged to complete a course of antibiotics for total 7 days for aspiration covered with Augmentin. Blood cultures and urine culture were found to be negative prior to discharge and he was never able to produce a sputum for a sputum culture. His labs stabilized and his creatinine at discharge was 1.15 where it was 1.66 on admission. He was highly recommended to follow-up with Dr. Rodriguez from gastroenterology for continued intervention with regards to his chronic aspiration and with pulmonology as already scheduled. A prescription was sent for ongoing speech therapy after discharge. Discharge diagnoses: Aspiration pneumonia Chronic hypoxic respiratory failure Oral pharyngeal dysphagia-chronic COPD Hyperlipidemia DM-2 Gastroparesis Diabetic neuropathy Anxiety Depression Obesity Compensated diastolic heart failure GERD Physical Exam Const alert, oriented x3 and no apparent distress Constitutional Narrative: obese white upper middle-aged male sitting in bed, nursing at bedside, patient appears comfortable, on baseline oxygen at 4 L General Appearance: cooperative, comfortable, well kempt and well developed Orientation / Consciousness: awake Exam Limitations: no limitations Nutritional Appearance: obese HEENT normocephalic, head/scalp atraumatic and moist oral mucous membranes HEENT Narrative: Mildly hard of hearing, Mallampati is 3 Eyes PERRL and EOMs intact bilaterally Eyes Narrative: Conjunctiva are slightly pale, no scleral icterus Neck no lymphadenopathy, supple and no JVD Neck Narrative: Trachea midline, no thyroid enlargement Resp normal respiratory effort, no retractions and no use of accessory muscles Resp Narrative: Few rhonchi noted most notably in the left upper lobe but improved with cough Auscultation: rhonchi; Negative for crackles, rales or wheezes Cardio regular rate, regular rhythm, S1 normal heart sound, S2 normal heart sound, no murmurs, no rub, no gallops, no clicks and no JVD GI normal to inspection, nondistended, normoactive bowel sounds, soft to palpation, non-tender and non-distended GI Narrative: PEG in place with no erythema or drainage Extremity no clubbing, cyanosis or edema Extremity Narrative: 2+ pedal pulses Skin no rashes or lesions noted, no wounds, skin turgor normal and no jaundice Neuro oriented x3, CN's II-XII intact bilaterally and moves all extremities Sensorium / Orientation: awake and alert Speech: speech normal Psych affect normal Weight / BMI Weight Weight: 126.28 kg Body Mass Index (BMI) 39.9 ABG / Lab / Microbiology Data Result Diagrams: 03/23/22 05:20 03/23/22 05:20 Laboratory: Laboratory Results - last 24 hr 03/22/22 16:43: POC Glucose 224 H 03/22/22 21:38: POC Glucose 220 H 03/23/22 05:20: WBC 9.2, RBC 3.60 L, Hgb 9.8 L, Hct 32.5 L, MCV 90.3, MCH 27.2, MCHC 30.2 L D, RDW Std Deviation 47.7 H, RDW Coeff of James 14.4, Plt Count 148 L, MPV 11.8, Immature Gran % (Auto) 0.500, Neut % (Auto) 64.5, Lymph % (Auto) 21.8, [place] % (Auto) 11.5 H, Eos % (Auto) 1.4, Baso % (Auto) 0.3, Absolute Neuts (auto) 5.9, Absolute Lymphs (auto) 2.00, Nucleated RBC % 0 03/23/22 05:20: Sodium 141, Potassium 4.1, Chloride 108 H, Carbon Dioxide 30.0, Anion Gap 3 L, BUN 23 H, Creatinine 1.15, Estim Creat Clear Calc 67.89, Est GFR (MDRD) Af Amer 83, Est GFR (MDRD) Non-Af 68, BUN/Creatinine Ratio 20.0, Glucose 181 H, Calcium 8.1 L 03/23/22 06:05: POC Glucose 161 H 03/23/22 11:42: POC Glucose 252 H Microbiology: Microbiology 03/20/22 20:10 Urine, Clean Catch Urine Culture - Final Culture exhibits no growth. 03/20/22 17:37 Blood Culture (Wb) - Left Hand Blood Culture - Preliminary No growth in 48 hours. 03/20/22 17:43 Blood Culture (Wb) - Right Hand Blood Culture - Preliminary No growth in 48 hours. 03/22/22 15:30 Stool C. difficile DNA Amplification - Final D/C Instructions Discharge Diet: Low fat / Low cholesterol, 1800 Calorie Control Diet and - ([facility] soft and thin liquids) Meaningful Use Info Meaningful Use Diagnoses (Choose all that apply): None applicable Discharge Plan Admission Admit Date/Time: 03/20/22 23:33 Primary Reason for Your Visit: Shortness of Breath Attending Provider: Alicia Larkin Primary Care Provider: Doretha Brown Instructions Additional Instructions / Restrictions: Oral intake Recommendations Frequent oral care before and after all meals; 4-5 smaller meals daily as compared to 3 large meals. Supplement oral intake via PEG tube if unable to maintain adequate nutrition and hydration with current diet recommendations and precautions.If the patient is unable to adhere to recommended diet and aspiration precautions, will recommend nutrition/hydration via PEG tube. Small Bites, Small Sips, Slow Rate - Sips one at a time, Sitting upright, Remain sitting upright for 30 minutes after PO intake - 60 minutes after oral intake 1:1 Close Supervision while eating Follow-up as recommended with outpatient speech therapy Discharge Orders/Prescriptions Prescriptions: New amoxicillin-pot clavulanate [Augmentin XR] 1,000-62.5 mg tablet extended release 12 hr 1 tab PO BID Qty: 10 RF: 0 Continued aspirin [Adult Aspirin Regimen] 81 mg tablet,delayed release (DR/EC) 81 mg PO DAILY RF: 0 atorvastatin 80 mg tablet 80 mg PO QHS Qty: 90 RF: 2 furosemide 40 mg tablet 40 mg PO DAILY Qty: 90 RF: 3 clopidogrel 75 mg tablet 75 mg PO DAILY Qty: 90 RF: 3 finasteride 5 mg tablet 5 mg PO DAILY Qty: 90 RF: 3 pregabalin [Lyrica] 75 mg capsule 75 mg PO BID Qty: 60 RF: 1 pantoprazole 20 mg tablet,delayed release (DR/EC) 20 mg PO DAILY RF: 0 albuterol sulfate 90 mcg/actuation HFA aerosol inhaler 2 puff inhalation Q4H PRN (Reason: shortness of breath or wheezing) Qty: 8.5 RF: 3 carvedilol 12.5 mg tablet 12.5 mg PO BID Qty: 180 RF: 3 insulin lispro 100 unit/mL insulin pen 1 sliding scale dose subcut .5 times daily RF: 0 acetaminophen 500 MG tablet 1,000 mg PO QHS PRN PRN (Reason: Pain 1-10 Or Fever) RF: 0 spironolactone 25 mg tablet 40 mg PO DAILY RF: 0 loratadine [Allergy Relief (loratadine)] 10 mg Tablet 10 mg G-tube DAILY Qty: 0 RF: 0 Artificial Tears([id number]) 1-0.2-0.2 % Drops 2 drp EACH EYE Q1H PRN (Reason: DRY EYES) Qty: 0 RF: 0 insulin lispro 100 unit/mL Insulin Pen 10 unit SUBCUT 5X/DAY RF: 0 Vital AF 1.2 Will 0.08 gram- 1.2 kcal/mL Liquid 90 ml feeding tube TID RF: 0 losartan 50 mg tablet 50 mg PO DAILY RF: 0 amlodipine 5 mg tablet 5 mg G-tube DAILY RF: 0 alprazolam 0.5 mg tablet 0.5 mg PO BID RF: 0 insulin detemir U-100 100 unit/mL (3 mL) insulin pen 40 unit subcut QHS RF: 0 isosorbide mononitrate 30 mg tablet extended release 24 hr 30 mg PO DAILY Qty: 90 RF: 0 metoclopramide HCl [Reglan] 5 mg tablet 5 mg PO BID Qty: 30 RF: 0 nitroglycerin 0.4 mg tablet, sublingual 0.4 mg SL Q5M PRN (Reason: Chest Pain) Qty: 30 RF: 0 trazodone 100 mg tablet 100 mg G-tube QHS Qty: 90 RF: 0 (DME) Curity Gauze 4 X 4 sponge See Rx Instructions .ROUTE .MEDSUPPLY Qty: 1 RF: 0 fluoxetine 40 mg capsule 40 mg PO DAILY Qty: 90 RF: 2 fluoxetine 20 mg capsule 20 mg PO DAILY Qty: 90 RF: 2 buspirone 7.5 mg tablet 7.5 mg PO TID Qty: 90 RF: 2 (DME) Piston Syringe with ENFit 60 mL syringe See Rx Instructions .ROUTE .MEDSUPPLY Qty: 30 RF: 0 Referrals / Follow Up: Doretha Brown MD [Primary Care Provider] - Within 2 Weeks Arjun Rodriguez DO [STAFF PHYSICIAN] - Within 2 Weeks (Or as scheduled) Sonal George NP, BOOKKEEPING TEACHER-C [Nurse Practitioner] - See Referral Note (as scheduled) Disposition Disposition (needs filled in before D/C Order can be placed): Home, Self Care Charges/Coding Visit Charges Inpatient E&M: 78041 Disch Hosp
--- NOTE | 2022-03-23 14:26 | CASEMGMT ---
Social Work SW notified Nuria Meeks, Direction Cooling Pan Tender of pt admission to hospital and discharge today. Discharge orders faxed. MINISTERIO Gallagher
[2022-03-23 14:29] VITALS: BP 126/76; PULSE 60; RESP 18; TEMP 36.6; O2SAT 99
--- NOTE | 2022-03-26 10:24 | NS ---
Dietitian follow-up call note: Pt reports hypoglycemia (50s) in the AM. Last tube feeds are around 8PM, pt only giving self 1/2 carton of Vital AF 1.2 (about 13 g CHO). Takes lantus at bedtime plus SSI w/ meals. Discussed w/ pt increasing night time bolus to 1 carton (~26 g CHO) or 1.5 cartons (39 g CHO) and seeing how blood sugars do. Goal for home tube feeds is 5 cartons Vital AF 1.2 per day to provide 1420 calories, 89 g protein. 120mL H2O flush w/ each carton to provide 1560mL fluid/day. RDN to follow-up w/ pt at home on 03/31/22 at 2:00 PM.
== END 2022-03-23 16:21 | disposition home or self-care (01) | DRG 178 ==
LOC: ED 22:48 → MS3 23:46
PROVIDERS: Student in an Organized Health Care Education/Training Program; Admitting Provider Family Medicine; Emergency Provider Emergency Medicine; PCP Internal Medicine; Visit Provider Internal Medicine
DX: J69.0 Pneumonitis due to inhalation of food and vomit (principal); N17.9 Acute kidney failure, unspecified; J96.11 Chronic respiratory failure with hypoxia; E87.2 Acidosis; I50.32 Chronic diastolic (congestive) heart failure; Z68.41 Body mass index [BMI] 40.0-44.9, adult; R13.11 Dysphagia, oral phase; J44.9 Chronic obstructive pulmonary disease, unspecified; I11.0 Hypertensive heart disease with heart failure; Z79.4 Long term (current) use of insulin; E11.51 Type 2 diabetes mellitus with diabetic peripheral angiopathy without gangrene; E11.43 Type 2 diabetes mellitus with diabetic autonomic (poly)neuropathy; E11.42 Type 2 diabetes mellitus with diabetic polyneuropathy; E11.65 Type 2 diabetes mellitus with hyperglycemia; Z93.1 Gastrostomy status; E78.00 Pure hypercholesterolemia, unspecified; E78.5 Hyperlipidemia, unspecified; K21.9 Gastro-esophageal reflux disease without esophagitis; I25.10 Atherosclerotic heart disease of native coronary artery without angina pectoris; F41.9 Anxiety disorder, unspecified; K31.84 Gastroparesis; I25.2 Old myocardial infarction; M10.9 Gout, unspecified; G47.30 Sleep apnea, unspecified; F32.A Depression, unspecified; Z79.82 Long term (current) use of aspirin; E66.9 Obesity, unspecified; Z87.442 Personal history of urinary calculi; Z79.899 Other long term (current) drug therapy; Z95.5 Presence of coronary angioplasty implant and graft
CPT/HCPCS: 36415; 71045; 74018; 74230; 80048; 80053; 81001; 82962; 83605; 85025; 85610; 85730; 87040; 87086; 87493; 92526; 92610; 92611; 93005; 97110; 97161; 97165; 97530; 97802; 97803; 99251; 99285; J7030; A4216; G0463; J0295; J2405

== ENCOUNTER 2022-04-05 11:43 | Emergency (ER) | payer MEDICARE, MEDICAID, SELFPAY ==
[2022-04-05 11:44] VITALS: BP 171/80; PULSE 51; RESP 18; TEMP 35.9; O2SAT 96; BMI 37.4
--- NOTE | 2022-04-05 12:07 | EDS_ITS ---
HPI History of Present Illness Chief Complaint: Wound Check Informant: patient and spouse/S.O. Narrative Narrative: 62-year-old male presenting to the emergency department the chief complaint of feeding tube malfunction. Patient has a PEG tube since the winter. He had it changed in the office by his machine tool operator a little over a week ago. He states it stopped working on Wednesday. 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 Bronchiectasis with (acute) exacerbation Cardiology follow-up encounter Chronic cough Chronic respiratory failure with hypoxia COPD (chronic obstructive pulmonary disease) CPAP (continuous positive airway pressure) dependence Depression Diabetes Essential hypertension Gastric reflux GERD (gastroesophageal reflux disease) High cholesterol History of aspiration pneumonia History of echocardiogram History of edema History of heart attack History of non-ST elevation myocardial infarction (NSTEMI) (08/2016) History of pain when walking History of steroid therapy History of stress test Hyperglycemia due to type 2 diabetes mellitus Hypertension Insulin dependent diabetes mellitus Kidney stones Leg pain, right Migraines Mood disorder Non-smoker On home oxygen therapy Peripheral vascular occlusive disease Pneumonia Prostate disease Pulmonary nodule, left Right ankle pain Shortness of breath on exertion Silent aspiration Sleep apnea Type 2 diabetes mellitus Vision loss of left eye Wears glasses Wound of left lower extremity Home Medications acetaminophen 1,000 mg PO QHS PRN PRN 02/11/21 [History Last Taken 09/01/21] aspirin 81 mg tablet,delayed release 81 mg PO DAILY 11/05/21 [History Last Taken 01/09/22] spironolactone 40 mg PO DAILY 11/08/21 [History Last Taken Unknown] Artificial Tears([id number]) 2 drp EACH EYE Q1H PRN #0 ml 11/14/21 [Rx Last Taken Unknown] loratadine [Allergy Relief (loratadine)] 10 mg G-TUBE DAILY #0 tab 11/14/21 [Rx Last Taken Unknown] nitroglycerin 0.4 mg sublingual tablet 0.4 mg SL Q5M PRN #30 tab 11/25/21 [Rx Last Taken Unknown] gauze bandage 4 X 4 sponge #1 ea 11/27/21 [Rx Last Taken Unknown] atorvastatin 80 mg tablet 80 mg PO QHS #90 tab 01/09/22 [Rx Last Taken Unknown] finasteride 5 mg tablet 5 mg PO DAILY #90 tab 01/09/22 [Rx Last Taken Unknown] furosemide 40 mg tablet 40 mg PO DAILY #90 tab 01/09/22 [Rx Last Taken Unknown] insulin lispro 100 unit/mL subcutaneous pen 1 sliding scale dose SUBCUT .5 times daily ml 01/27/22 [History Last Taken Unknown] albuterol sulfate 90 mcg/actuation aerosol inhaler 2 puff INHALATION Q4H PRN #8.5 g 02/04/22 [Rx Last Taken Unknown] pantoprazole 20 mg tablet,delayed release 20 mg PO DAILY tab 02/04/22 [History Last Taken Unknown] carvedilol 12.5 mg tablet 12.5 mg PO BID #180 tab 02/05/22 [Rx Last Taken Unknown] Vital AF 1.2 Will 90 ml FEEDING TUBE TID 02/22/22 [History Last Taken Unknown] insulin lispro 10 unit SUBCUT 5X/DAY 02/22/22 [History Last Taken Unknown] buspirone 7.5 mg tablet 7.5 mg PO TID #90 tab 03/09/22 [Rx Last Taken Unknown] fluoxetine 20 mg capsule 20 mg PO DAILY #90 cap 03/09/22 [Rx Last Taken Unknown] fluoxetine 40 mg capsule 40 mg PO DAILY #90 cap 03/09/22 [Rx Last Taken Unknown] syringe, ENFit, non-sterile 60 mL #30 ea 03/20/22 [Rx Last Taken Unknown] alprazolam 0.5 mg PO BID 03/21/22 [History Last Taken Unknown] amlodipine 5 mg G-TUBE DAILY 03/21/22 [History Last Taken Unknown] insulin detemir U-100 40 unit SUBCUT QHS 03/21/22 [History Last Taken Unknown] losartan 50 mg PO DAILY 03/21/22 [History Last Taken Unknown] amoxicillin-pot clavulanate 10 ml PO BID 5 Days #100 ml 03/23/22 [Rx Last Taken Unknown] clopidogrel 75 mg tablet 75 mg PO DAILY #90 tab 03/30/22 [Rx Last Taken Unknown] isosorbide mononitrate 30 mg tablet,extended release 24 hr 30 mg PO DAILY #90 tab 03/30/22 [Rx Last Taken Unknown] metoclopramide HCl 5 mg tablet 5 mg PO BID #60 tab 03/30/22 [Rx Last Taken Unknown] pregabalin 75 mg capsule 75 mg PO BID #60 cap 03/30/22 [Rx Last Taken Unknown] trazodone 100 mg tablet 100 mg G-TUBE QHS #90 tab 03/30/22 [Rx Last Taken Unknown] Allergy/AdvReac Type Severity Reaction Status Date / Time allopurinol AdvReac Vomiting Verified 04/05/22 11:44 Influenza Virus Vaccines AdvReac Vomiting Verified 04/05/22 11:44 pneumococcal vaccine AdvReac Vomiting Verified 04/05/22 11:44 Family History Mother Diabetes Heart disease CHF Father Heart disease IA/CAD Myocardial infarction Surgical History H/O lithotripsy History of angioplasty of peripheral vessel (2016) History of angioplasty of peripheral vessel History of ankle surgery History of cardiac catheterization History of coronary artery stent placement (08/2016) History of coronary artery stent placement History of esophagogastroduodenoscopy (EGD) History of left heart catheterization (11/15/17) History of thyroid surgery Hx of lithotripsy Hx of surgery to heart and great vessels, presenting hazards to health Hx of surgical procedure Hx of thyroidectomy Hx of toe surgery Hx of toe surgery PEG (percutaneous endoscopic gastrostomy) status Social History household members: spouse housing: apartment Smoking Status: Never smoker alcohol intake: never substance use type: does not use ROS ROS ED Constitutional Constitutional ED: Denies chills, fever(s) or weight loss Eyes Eyes: Denies change in vision or diplopia ENT ENT ED: Denies ear pain, rhinorrhea or sore throat Cardiovascular Cardiovascular: Denies chest pain, orthopnea, palpitations or racing heartbeat Respiratory/Chest Respiratory/Chest: Denies cough, dyspnea or orthopnea Gastrointestinal Gastrointestinal: Denies abdominal pain, diarrhea, nausea or vomiting Genitourinary Genitourinary ED: Denies dysuria, hematuria or urinary frequency Musculoskeletal Musculoskeletal: Denies arthralgias or myalgias Integumentary Denies abscess or rash Neurologic Neurologic: Denies headache(s) or weakness Psychiatric Psychiatric: Denies anxiety, depression, suicidal ideation or suicidal thoughts Endocrine Endocrinology: Denies polydipsia, polyphagia or polyuria Allergic/Immunologic Allergic/Immunologic ED: Denies mouth swelling, tongue swelling or urticaria EXAM Physical Exam Const Vital Signs: 04/05/22 11:44 Temperature 96.6 F L Temperature Source Temporal Pulse Rate 51 L Respiratory Rate 18 Blood Pressure 171/80 H Blood Pressure Mean 110 Pulse Ox 96 Oxygen Delivery Method Room Air Positive well nourished and well developed General Appearance ED: well developed HEENT Reports normocephalic, head/scalp atraumatic, TM's clear and moist mucous membranes Negative for trauma Tympanic Membrane ED: Yes TM's clear Eyes PERRL and EOMs intact bilaterally Neck no lymphadenopathy, supple and no JVD Resp normal respiratory effort and clear to auscultation bilaterally Cardio regular rate, regular rhythm and no murmurs GI normal to inspection, nondistended, normoactive bowel sounds and non-tender GI Narrative: There is a well-formed stoma with PEG tube. Palpation: soft Back/Spine no CVA tenderness and normal ROM Extremity normal to inspection General Extremety ED: Negative for edema General Extremity: Negative for edema Neuro oriented x3 and CN's II-XII intact bilaterally Sensorium / Orientation: alert Motor Exam: strength 5/5 throughout Psych mental status grossly normal Mood & Affect: Negative for depressed or tearful Skin no rashes or lesions noted and no wounds MDM MDM MDM Narrative Medical decision making narrative: The old PEG tube had its balloon deflated and was easily removed. The stoma site was cleansed. A 20 German PEG tube was placed without difficulty and balloon inflated. Drain sponge placed. My interpretation of the plain film of the abdomen is adequate position of PEG tube return if worsening or concerns Discharge Plan Triage Chief Complaint: Wound Check ED Provider: Jason Bryan Dx/Rx/DC Orders Clinical Impression: Malfunction of percutaneous endoscopic gastrostomy (PEG) tube Prescriptions: No Action aspirin [Adult Aspirin Regimen] 81 mg tablet,delayed release (DR/EC) 81 mg PO DAILY RF: 0 atorvastatin 80 mg tablet 80 mg PO QHS Qty: 90 RF: 2 furosemide 40 mg tablet 40 mg PO DAILY Qty: 90 RF: 3 finasteride 5 mg tablet 5 mg PO DAILY Qty: 90 RF: 3 pantoprazole 20 mg tablet,delayed release (DR/EC) 20 mg PO DAILY RF: 0 albuterol sulfate 90 mcg/actuation HFA aerosol inhaler 2 puff inhalation Q4H PRN (Reason: shortness of breath or wheezing) Qty: 8.5 RF: 3 carvedilol 12.5 mg tablet 12.5 mg PO BID Qty: 180 RF: 3 insulin lispro 100 unit/mL insulin pen 1 sliding scale dose subcut .5 times daily RF: 0 acetaminophen 500 MG tablet 1,000 mg PO QHS PRN PRN (Reason: Pain 1-10 Or Fever) RF: 0 spironolactone 25 mg tablet 40 mg PO DAILY RF: 0 loratadine [Allergy Relief (loratadine)] 10 mg Tablet 10 mg G-tube DAILY Qty: 0 RF: 0 Artificial Tears([id number]) 1-0.2-0.2 % Drops 2 drp EACH EYE Q1H PRN (Reason: DRY EYES) Qty: 0 RF: 0 insulin lispro 100 unit/mL Insulin Pen 10 unit SUBCUT 5X/DAY RF: 0 Vital AF 1.2 Will 0.08 gram- 1.2 kcal/mL Liquid 90 ml feeding tube TID RF: 0 losartan 50 mg tablet 50 mg PO DAILY RF: 0 amlodipine 5 mg tablet 5 mg G-tube DAILY RF: 0 alprazolam 0.5 mg tablet 0.5 mg PO BID RF: 0 insulin detemir U-100 100 unit/mL (3 mL) insulin pen 40 unit subcut QHS RF: 0 amoxicillin-pot clavulanate 400-57 mg/5 mL suspension for reconstitution 10 ml PO BID 5 Days Qty: 100 RF: 0 nitroglycerin 0.4 mg tablet, sublingual 0.4 mg SL Q5M PRN (Reason: Chest Pain) Qty: 30 RF: 0 (DME) Curity Gauze 4 X 4 sponge See Rx Instructions .ROUTE .MEDSUPPLY Qty: 1 RF: 0 fluoxetine 40 mg capsule 40 mg PO DAILY Qty: 90 RF: 2 fluoxetine 20 mg capsule 20 mg PO DAILY Qty: 90 RF: 2 buspirone 7.5 mg tablet 7.5 mg PO TID Qty: 90 RF: 2 (DME) Piston Syringe with ENFit 60 mL syringe See Rx Instructions .ROUTE .MEDSUPPLY Qty: 30 RF: 0 clopidogrel 75 mg tablet 75 mg PO DAILY Qty: 90 RF: 3 isosorbide mononitrate 30 mg tablet extended release 24 hr 30 mg PO DAILY Qty: 90 RF: 3 metoclopramide HCl [Reglan] 5 mg tablet 5 mg PO BID Qty: 60 RF: 0 pregabalin [Lyrica] 75 mg capsule 75 mg PO BID Qty: 60 RF: 1 trazodone 100 mg tablet 100 mg G-tube QHS Qty: 90 RF: 0 Primary Care Provider: Doretha Brown Referrals: Doretha Brown MD [Primary Care Provider] - Arjun Rodriguez DO [STAFF PHYSICIAN] - As Needed Disposition Disposition: Home, Self Care
--- NOTE | 2022-04-05 12:24 | RAD_ITS ---
STUDY: X-RAY - ABDOMEN/PELVIS REASON FOR EXAM: Male, 62 years old. PEG Placement TECHNIQUE: Single AP view of the abdomen / pelvis. COMPARISON: 03/17/2022 FINDINGS: Injection of the previous gastrostomy tube with contrast demonstrates contrast within the stomach without evidence of extravasation to suggest leak. There is an unremarkable bowel gas pattern. The visualized liver, spleen and kidneys are grossly normal in size and morphology. Normal soft tissue structures. Normal visualized osseous structures. RAD/Abdomen Single View (Portable) IMPRESSION: Percutaneous gastrostomy tube empties into the stomach without evidence of leak. Electronically Signed: Deuce Floyd MD at 12:53 EDT ,
== END 2022-04-05 12:41 | disposition home or self-care (01) ==
LOC: ED 12:32
PROVIDERS: Emergency Provider Emergency Medicine; PCP Internal Medicine; Visit Provider Emergency Medicine
DX: K94.23 Gastrostomy malfunction (principal); J44.9 Chronic obstructive pulmonary disease, unspecified; J96.11 Chronic respiratory failure with hypoxia; E11.9 Type 2 diabetes mellitus without complications; Z79.4 Long term (current) use of insulin; I10 Essential (primary) hypertension; I25.10 Atherosclerotic heart disease of native coronary artery without angina pectoris; E78.00 Pure hypercholesterolemia, unspecified; M10.9 Gout, unspecified; F32.A Depression, unspecified; K21.9 Gastro-esophageal reflux disease without esophagitis; Z87.01 Personal history of pneumonia (recurrent); I25.2 Old myocardial infarction; F41.9 Anxiety disorder, unspecified; Z99.81 Dependence on supplemental oxygen; G47.30 Sleep apnea, unspecified; Z87.442 Personal history of urinary calculi; Z79.82 Long term (current) use of aspirin; Z79.899 Other long term (current) drug therapy; Z95.5 Presence of coronary angioplasty implant and graft
CPT/HCPCS: 43762; 74018; 99282

== ENCOUNTER 2022-04-14 14:00 | Outpatient (RCR) | payer MEDICARE, MEDICAID, SELFPAY ==
[2022-02-27 00:40] VITALS: BMI 39.2
--- NOTE | 2022-03-31 15:45 | EX.NTREPO ---
Medical Nutrition Therapy - History Nutrition Services has been consulted to:: Manage nutrient details of diet order, Manage enteral nutrition, Conduct nutrition education Current diet/nutrition support order:: Vital AF 1.2- 237mL at breakfast, 237mL at lunch, 474mL at dinner, 237mL for HS snack (5 cartons or 1185mL per day to provide 1422 calories, 89 g protein/day). Flushing w/ 30mL before and after each feeding. Administered via pump: currently sets pump at 90mL/hour, tried to increase rate but pt did not tolerate. Per COMPUTER ANALYST- okay for minced/moist, thin liquids - Anthropometric Measurements Height:: 5 ft 10 in Weight:: 118.388 kg Body Mass Index (BMI):: 37.4 - Assessment Food and Nutrient Intake: Home visit f/u. Admitted to [facility] 03/20/22. This RDN instructed pt to be strictly NPO and use PEG tube for all nutrition w/ goal of achieving wt loss to assist w/ aspiration/GERD. Pt weighed 278# on 03/20, down to 261# this AM on home scale. Pt complains of hunger, wants to eat by mouth. Complains of significant diarrhea since discharge. Just finished 7 day course of amoxicilin. AM Hypoglycemia- Per Gabriela, PCP instructed pt to decrease lantus by 2 units per day until AM blood sugar is balanced out. SSI +10 units humalog w/ meals, SSI only HS. AM Blood glucose over past 5 days: 51, 39, 41, 149, 85 - Protein Calorie Malnutrition Evidence of Malnutrition Exists: No - Nutrition Intervention Nutrition Prescription: [id number] calories/day (25 calories/kg IBW). 70-80 g protein/day (1.0 g/kg IBW). 1875mL fluid/day (25mL/kg IBW) - Food / Nutrient Delivery Interventions Summary of nutrition intervention:: Nutrition education provided, Order/adjust enteral nutrition Nutrition support ordered as / adjusted to:: 1) <1600 calories/day for wt loss: -1 carton (237mL) of Vital AF 1.2 via PEG w/ 30mL H2O flush before and after each feeding at breakfast, lunch, and HS. -1 Mom's Meal (45-60 g CHO) and yogurt at dinner OR 2 cartons Vital AF 1.2 via PEG Nutrition Counseling: Lengthy discussion w/ Raheem and Gabriela. Pt is depressed, wants to eat something by mouth. Pt asking to consume 1 meal/day and continue to have additional feeds via PEG. Pt states wt loss continues to be his goal, but appears to have conflicting desires between adhering to nutritional recommendations and eating whatever I want. Pt has Moms Meals at home which are texture appropriate per COMPUTER ANALYST recommendations. Nutritional content of Moms Meals reviewed- they not excessive in CHO/calories. Instructed pt that he could have a Moms Meal instead of dinner enteral feed. Pt then asked if he could have pudding, icee, or jello w/ Moms Meal. Explained to pt that those foods are contributing calories/excess CHO and little other nutritional benefit. Pt willing to have only 1/2 of single serving SF jello or SF pudding for just a taste. Suggested pt try low sugar yogurt w/ meal instead for additional protein, beneficial probiotics. Pt agreeable to recommendations. Pt will continue w/ 1 carton Vital AF 1.2 3x/day (breakfast, lunch, HS) and have 2 cartons Vital AF 1.2 at dinner time if he does not have a Mom's Meal. Continue 30mL flush before and after each feeding. Encouraged fluid restriction to assist w/ wt loss. Pt understands risks of eating PO, reviewed aspiration/GERD precautions w/ Raheem and Gabriela. Discussed pump feedings- Gabriela will continue to set pump at 90mL/hour, may increase by 10mL/hour at feedings to see if pt tolerates. Coordination of Nutrition Care: Discussed diarrhea w/ pt- may be r/t recent antibiotic usage. Gabriela states pt was on a different antibiotic even prior to February hospitalization. Pt states he is seeing Dr. Alexander tomorrow to establish care, will ask about diarrhea/stool sample if it continues. Noted STRING CUTTER Anabel (w/Palliative care) ordered stool culture in EMR- Gabriela/Raheme unsure of how sample is supposed to be collected. Gabriela states she will call Palliative services for further information. - MNT Monitoring Active Nutrition Patient: Yes Nutrition Status: Requires Follow Up 7-9 Days - Will follow-up in 2 weeks 04/14/22 at 2PM
[2022-03-31 15:50] VITALS: BMI 37.4
--- NOTE | 2022-04-14 14:50 | NT.THERAPY_ITS ---
Medical Nutrition Therapy - History Nutrition Services has been consulted to:: Manage nutrient details of diet order, Manage enteral nutrition, Conduct nutrition education Current diet/nutrition support order:: Per MEDICAL INSTRUMENT TECHNICIAN- okay for minced/moist, thin liquids. Vital AF 1.2 via PEG if he does not take a meal by mouth: 237mL at breakfast, 237mL at lunch, 474mL at dinner, 237mL for HS snack (5 cartons or 1185mL per day to provide 1422 calories, 89 g protein/day). Flushing w/ 30mL before and after each feeding. Administered via pump: currently sets pump at 100-150mL/hour as tolerated - Anthropometric Measurements Height:: 5 ft 10 in Weight:: 118.388 kg Body Mass Index (BMI):: 37.4 - Assessment Food and Nutrient Intake: No new wt to assess. Pt states his ankle has been hurting and he refuses to step on scale at home today w/ assistance of RDN. Pt has been eating meals by mouth, despite risks of PO intake. He uses Vital AF 1.2 via PEG if he does not take his meal by mouth. It appears he is doing ~2 meals by mouth and 1 meal and a snack via tube feeds. Pt states he has been eating only minced/moist foods with extra sauce/gravy when applicable. Pt states he has been watching CHO content of foods consumed and is also mindful of sodium intake. Pt says blood sugars have been adequately controlled. Pt says he is only drinking sugar free beverages. Pt states diarrhea has improved somewhat. Gabriela thinks diarrhea is better when pt has at least one tube feeding per day. Pt states diarrhea is less frequent/intense than reported during last RDN visit. - Protein Calorie Malnutrition Evidence of Malnutrition Exists: No - Nutrition Intervention Nutrition Prescription: [id number] calories/day (25 calories/kg IBW). 70-80 g protein/day (1.0 g/kg IBW). 1875mL fluid/day (25mL/kg IBW) - Food / Nutrient Delivery Interventions Summary of nutrition intervention:: Nutrition education provided, Order/adjust enteral nutrition Nutrition support ordered as / adjusted to:: <1600 calories/day for wt loss. Ideally pt would consume: -1 carton (237mL) of Vital AF 1.2 via PEG w/ 30mL H2O flush before and after each feeding at breakfast, lunch, and HS. -1 Mom's Meal (45-60 g CHO) and yogurt at dinner OR 2 cartons Vital AF 1.2 via PEG Nutrition Counseling: Pt again confirms understanding of risks associated w/ PO intake but expresses desire to consume food by mouth and supplement w/ enteral nutrition as needed. Pt confirms he wants to continue w/ wt loss, but again refuses to weigh himself to monitor progress. Coordination of Nutrition Care: Plans to see Dr. Rodriguez next week for follow-up. Raheem to call Nutrition Services to schedule follow-up visit when needed. - MNT Monitoring Active Nutrition Patient: Yes
[2022-04-15 08:26] VITALS: BMI 37.4
--- NOTE | 2022-04-23 13:40 | NS ---
TC from Raheem and LESTER Ochoa- Friend's office gave pt script for low sodium meals. Pt gets [employer]oms Meals through [employer]/Waiver program. RDN called [facility] ([phone] for coverage line). Pt's protective services case worker is Sarah Turpin ([phone]) and enrollment services dean is Sylvia Green ([phone]). Per insurance account representative on coverage line, [facility] will contact [employer] to let them know pt needs low sodium menu- he did not think they needed a script for this. He stated he will contact enrollment services dean and notify her of the request. XIN called Raheem and Gabriela back to inform them of same. Chencho Webber MS, CAM, LD
== END 2022-04-28 23:59 ==
LOC: DC 14:00
PROVIDERS: PCP Internal Medicine; Visit Provider Internal Medicine
DX: E11.22 Type 2 diabetes mellitus with diabetic chronic kidney disease (principal)
CPT/HCPCS: 97803

== ENCOUNTER 2022-05-03 01:32 | Emergency (ER) | payer MEDICARE, MEDICAID, SELFPAY ==
[2022-05-03 01:32] VITALS: PULSE 90; RESP 16; TEMP 37.2; O2SAT 96; BMI 40.4
[2022-05-03 01:40] VITALS: BP 237/105
--- NOTE | 2022-05-03 03:12 | RAD_ITS ---
EXAM: XR CHEST, 1 VIEW CLINICAL INDICATION: Cough TECHNIQUE: Frontal view of the chest. This report was created using [employer] report generation technology. COMPARISON: 03/20/2022. FINDINGS: LUNGS AND PLEURAL SPACES: Low lung volumes somewhat limit the exam. No consolidations. No pneumothorax. No effusion. HEART: Unremarkable. Cardiac silhouette not enlarged. MEDIASTINUM: Central airways and mediastinal contour are unremarkable. BONES/JOINTS: Unremarkable. SOFT TISSUES: Unremarkable. RAD/Chest 1 View (Portable) IMPRESSION: Low lung volumes somewhat limit the exam. No consolidations. No change since previous exam. Electronically Signed: Wallace Matias MD at 3:46 EDT ,
[2022-05-03] MEDS: Ipratropium/Albuterol Sulfate 3 ML AMPUL.NEB INHALATION (03:21)
[2022-05-03 03:23] VITALS: PULSE 85; RESP 26
[2022-05-03 03:40] LABS: Absolute Lymphocyte Count 1.46 X10^3/uL (0.83-4.51); Absolute Neutrophil Count 13.6 X10^3/uL (2.0-7.7); Basophil# 0.03 X10^3/uL; Basophil% 0.2 % (0-1); Eosinophil# 0.09 X10^3/uL; Eosinophils% 0.5 % (0-5); Hematocrit 39.6 % (40-54); Hemoglobin 12.8 g/dL (13.0-16.5); Lymphocyte # 1.46 X10^3/ul (0.83-4.51); Lymphocyte % 8.8 % (19-41); Mean Corp Hgb Conc 32.3 g/dL (32-36); Mean Corpuscular Hgb 28.2 pg (27.0-32.0); Mean Corpuscular Volume 87.2 fL (80-94); Mean Platelet Vol. 11.4 fl (6.2-12.0); Monocyte# 1.43 X10^3/uL; Monocyte% 8.6 % (0-10); NRBC Flagged by Analyzer 0 % (0-5); Neutrophil # 13.57 X10^3/uL (2.7-7.7); Neutrophil % 81.3 % (47-70); Platelet Count 215 K/mm3 (150-450); RBC Distribution Width CV 13.5 % (11.6-14.6); RBC Distribution Width SD 43.5 fl (35.1-43.9); Red Blood Count 4.54 M/mm3 (4.6-6.2); White Blood Count 16.7 K/mm3 (4.4-11.0)
--- NOTE | 2022-05-03 03:49 | EDS_ITS ---
HPI History of Present Illness Chief Complaint: Fall Informant: patient and spouse/S.O. Onset/Context/Timing Onset: Today Context: Gradual Onset Timing: Continuous Quality: Weakness Location: Generalized Worsened by: Nothing Relieved by: Nothing Narrative Narrative: Patient presents with a fall that occurred today. Patient states he has an abrasion on his left elbow and right knee from the fall. Patient denies any loss of consciousness. Patient denies any paresthesias or weakness. Patient did not hit his head. Patient also states that he has been having some shortness of breath and cough. Patient states he has a history of aspiration pneumonia and states this feels similar to prior episodes. Patient states his temperature at home was 99.9. Patient states he feels weak all over. Patient states his pulse oximeter at home was 91% on room air. 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 Bronchiectasis with (acute) exacerbation Cardiology follow-up encounter Chronic cough Chronic respiratory failure with hypoxia COPD (chronic obstructive pulmonary disease) CPAP (continuous positive airway pressure) dependence Depression Diabetes Essential hypertension Gastric reflux GERD (gastroesophageal reflux disease) High cholesterol History of aspiration pneumonia History of echocardiogram History of edema History of heart attack History of non-ST elevation myocardial infarction (NSTEMI) (08/2016) History of pain when walking History of steroid therapy History of stress test Hyperglycemia due to type 2 diabetes mellitus Hypertension Insulin dependent diabetes mellitus Kidney stones Leg pain, right Migraines Mood disorder Non-smoker On home oxygen therapy Peripheral vascular occlusive disease Pneumonia Prostate disease Pulmonary nodule, left Right ankle pain Shortness of breath on exertion Silent aspiration Sleep apnea Type 2 diabetes mellitus Vision loss of left eye Wears glasses Wound of left lower extremity Home Medications acetaminophen 1,000 mg PO QHS PRN PRN 02/11/21 [History Last Taken 09/01/21] aspirin 81 mg tablet,delayed release 81 mg PO DAILY 11/05/21 [History Last Taken 01/09/22] spironolactone 40 mg PO DAILY 11/08/21 [History Last Taken Unknown] Artificial Tears([id number]) 2 drp EACH EYE Q1H PRN #0 ml 11/14/21 [Rx Last Taken Unknown] loratadine [Allergy Relief (loratadine)] 10 mg G-TUBE DAILY #0 tab 11/14/21 [Rx Last Taken Unknown] nitroglycerin 0.4 mg sublingual tablet 0.4 mg SL Q5M PRN #30 tab 11/25/21 [Rx Last Taken Unknown] gauze bandage 4 X 4 sponge #1 ea 11/27/21 [Rx Last Taken Unknown] atorvastatin 80 mg tablet 80 mg PO QHS #90 tab 01/09/22 [Rx Last Taken Unknown] finasteride 5 mg tablet 5 mg PO DAILY #90 tab 01/09/22 [Rx Last Taken Unknown] furosemide 40 mg tablet 40 mg PO DAILY #90 tab 01/09/22 [Rx Last Taken Unknown] insulin lispro 100 unit/mL subcutaneous pen 1 sliding scale dose SUBCUT .5 times daily ml 01/27/22 [History Last Taken Unknown] albuterol sulfate 90 mcg/actuation aerosol inhaler 2 puff INHALATION Q4H PRN #8.5 g 02/04/22 [Rx Last Taken Unknown] pantoprazole 20 mg tablet,delayed release 20 mg PO DAILY tab 02/04/22 [History Last Taken Unknown] carvedilol 12.5 mg tablet 12.5 mg PO BID #180 tab 02/05/22 [Rx Last Taken Unknown] Vital AF 1.2 Will 90 ml FEEDING TUBE TID 02/22/22 [History Last Taken Unknown] insulin lispro 10 unit SUBCUT 5X/DAY 02/22/22 [History Last Taken Unknown] buspirone 7.5 mg tablet 7.5 mg PO TID #90 tab 03/09/22 [Rx Last Taken Unknown] fluoxetine 20 mg capsule 20 mg PO DAILY #90 cap 03/09/22 [Rx Last Taken Unknown] fluoxetine 40 mg capsule 40 mg PO DAILY #90 cap 03/09/22 [Rx Last Taken Unknown] syringe, ENFit, non-sterile 60 mL #30 ea 03/20/22 [Rx Last Taken Unknown] alprazolam 0.5 mg PO BID 03/21/22 [History Last Taken Unknown] amlodipine 5 mg G-TUBE DAILY 03/21/22 [History Last Taken Unknown] insulin detemir U-100 40 unit SUBCUT QHS 03/21/22 [History Last Taken Unknown] losartan 50 mg PO DAILY 03/21/22 [History Last Taken Unknown] clopidogrel 75 mg tablet 75 mg PO DAILY #90 tab 03/30/22 [Rx Last Taken Unknown] isosorbide mononitrate 30 mg tablet,extended release 24 hr 30 mg PO DAILY #90 tab 03/30/22 [Rx Last Taken Unknown] metoclopramide HCl 5 mg tablet 5 mg PO BID #60 tab 03/30/22 [Rx Last Taken Unknown] pregabalin 75 mg capsule 75 mg PO BID #60 cap 03/30/22 [Rx Last Taken Unknown] trazodone 100 mg tablet 100 mg G-TUBE QHS #90 tab 03/30/22 [Rx Last Taken Unknown] low-sodium #1 ea 04/23/22 [Rx Last Taken Unknown] amoxicillin-pot clavulanate 10 ml PO BID 5 Days #100 ml 05/03/22 [Rx Last Taken Unknown] Allergy/AdvReac Type Severity Reaction Status Date / Time allopurinol AdvReac Vomiting Verified 05/03/22 01:39 Influenza Virus Vaccines AdvReac Vomiting Verified 05/03/22 01:39 pneumococcal vaccine AdvReac Vomiting Verified 05/03/22 01:39 Family History Mother Diabetes Heart disease CHF Father Heart disease [place]/CAD Myocardial infarction Surgical History H/O lithotripsy History of angioplasty of peripheral vessel (2016) History of angioplasty of peripheral vessel History of ankle surgery History of cardiac catheterization History of coronary artery stent placement (08/2016) History of coronary artery stent placement History of esophagogastroduodenoscopy (EGD) History of left heart catheterization (11/15/17) History of thyroid surgery Hx of lithotripsy Hx of surgery to heart and great vessels, presenting hazards to health Hx of surgical procedure Hx of thyroidectomy Hx of toe surgery Hx of toe surgery PEG (percutaneous endoscopic gastrostomy) status Social History household members: spouse housing: apartment Smoking Status: Never smoker alcohol intake: never substance use type: does not use ROS ROS ED Constitutional Constitutional ED: Reports fever(s); Denies chills Eyes Eyes: Denies blurry vision or change in vision ENT ENT ED: Denies rhinorrhea or sore throat Cardiovascular Cardiovascular: Denies chest pain or palpitations Respiratory/Chest Respiratory/Chest: Reports cough and dyspnea Gastrointestinal Gastrointestinal: Denies nausea or vomiting Genitourinary Genitourinary ED: Denies dysuria or hematuria Musculoskeletal Musculoskeletal: Denies back pain or neck pain Integumentary Reports rash; Denies abscess Neurologic Neurologic: Reports weakness; Denies headache(s) Allergic/Immunologic Allergic/Immunologic ED: Denies mouth swelling or urticaria EXAM Physical Exam Const Vital Signs: 05/03/22 01:32 05/03/22 01:40 05/03/22 03:23 Temperature 99.0 F Temperature Source Temporal Pulse Rate 90 85 Respiratory Rate 16 26 H Respiratory Pattern Tachypnea Blood Pressure 237/105 H Blood Pressure Mean 149 Pulse Ox 96 Oxygen Delivery Method Nasal Cannula Oxygen Flow Rate (L/min) 3 Positive well nourished, well developed and obese General Appearance ED: well developed and NAD Nutritional Appearance: obese HEENT Reports moist mucous membranes Neck supple and no JVD Resp normal respiratory effort and clear to auscultation bilaterally Cardio regular rate, regular rhythm and no murmurs GI normal to inspection, nondistended, normoactive bowel sounds and non-tender Palpation: soft Extremity normal to inspection General Extremety ED: Negative for edema or tenderness General Extremity: Negative for edema Neuro oriented x3, CN's II-XII intact bilaterally and no sensory deficits noted Sensorium / Orientation: alert Motor Exam: strength 5/5 throughout Psych mental status grossly normal Skin no rashes or lesions noted MDM MDM MDM Narrative Medical decision making narrative: Patient was given a DuoNeb aerosol here. CBC shows a mild leukocytosis of 16.7. Hemoglobin was 12.8 and hematocrit was 39.6. PT with INR and PTT are within normal limits. Comprehensive metabolic profile showed a slightly elevated creatinine of 1.42 but was otherwise within normal limits. Urinalysis does not show any evidence of urinary tract infection or hematuria. Portable 1 view chest x-ray was obtained. On my interpretation, lung [place] are clear but there is poor inspiratory effort. There is normal cardiac silhouette. Bony thorax is normal. There is no acute process noted. Radiologist also interpreted the x-ray and agrees. Patient was advised of his findings. Because of the leukocytosis, I will cover the patient for possible aspiration. Patient was given a dose of Augmentin here. Patient was given a prescription for Augmentin. Patient was instructed to follow-up with his primary care physician in 3 to 5 days. Patient understood and was agreeable with plan. All questions were answered. Lab Data Attestation: I reviewed the patient's lab results. Labs: Laboratory Results - last 24 hr 05/03/22 05/03/22 05/03/22 02:00 02:00 02:00 WBC 16.7 H RBC 4.54 L Hgb 12.8 L Hct 39.6 L MCV 87.2 MCH 28.2 MCHC 32.3 RDW Std Deviation 43.5 RDW Coeff of Jaems 13.5 Plt Count 215 MPV 11.4 Immature Gran % (Auto) 0.600 Neut % (Auto) 81.3 H Lymph % (Auto) 8.8 L Day % (Auto) 8.6 Eos % (Auto) 0.5 Baso % (Auto) 0.2 Absolute Neuts (auto) 13.6 H Absolute Lymphs (auto) 1.46 Nucleated RBC % 0 PT 14.0 INR 1.1 APTT 28.0 Sodium 139 Potassium 3.8 Chloride 102 Carbon Dioxide 31.0 Anion Gap 6 BUN 22 H Creatinine 1.42 H Estim Creat Clear Calc 54.98 Est GFR (MDRD) Af Amer 65 Est GFR (MDRD) Non-Af 54 L BUN/Creatinine Ratio 15.5 Glucose 51 L Lactic Acid Calcium 9.6 Total Bilirubin 0.50 AST 20 ALT 23 Alkaline Phosphatase 116 Total Protein 8.0 Albumin 3.5 Globulin 4.5 H Albumin/Globulin Ratio 0.8 L Urine Color Urine Clarity Urine pH Ur Specific [place] Urine Protein Urine Glucose (UA) Urine Ketones Urine Occult Blood Urine Nitrite Urine Bilirubin Urine Urobilinogen Ur Leukocyte Esterase Urine RBC Urine WBC Ur Squamous Epith Cells Urine Bacteria Urine Mucus 05/03/22 05/03/22 02:00 03:47 WBC RBC Hgb Hct MCV MCH MCHC RDW Std Deviation RDW Coeff of [place] Plt Count MPV Immature Gran % (Auto) Neut % (Auto) Lymph % (Auto) Day % (Auto) Eos % (Auto) Baso % (Auto) Absolute Neuts (auto) Absolute Lymphs (auto) Nucleated RBC % PT INR APTT Sodium Potassium Chloride Carbon Dioxide Anion Gap BUN Creatinine Estim Creat Clear Calc Est GFR (MDRD) Af Amer Est GFR (MDRD) Non-Af BUN/Creatinine Ratio Glucose Lactic Acid 1.3 Calcium Total Bilirubin AST ALT Alkaline Phosphatase Total Protein Albumin Globulin Albumin/Globulin Ratio Urine Color Yellow Urine Clarity Clear Urine pH 7.0 Ur Specific [place] 1.010 Urine Protein 100 H Urine Glucose (UA) Normal Urine Ketones Negative Urine Occult Blood 10 H Urine Nitrite Negative Urine Bilirubin Negative Urine Urobilinogen 8 H Ur Leukocyte Esterase 25 H Urine RBC 0-5 SEEN Urine WBC 0-5 SEEN Ur Squamous Epith Cells 0-5 SEEN Urine Bacteria RARE Urine Mucus 0 SEEN Radiography Chest X-Ray - ED: 1 View, Read by ED Physician, Read by Radiologist and No Acute Disease Diagnostic Testing: Clinical Impression(s) from Imaging Studies Chest X-Ray 05/03/22 03:12 IMPRESSION: Low lung volumes somewhat limit the exam. No consolidations. No change since previous exam. Electronically Signed: Wallace Matias MD at 3:46 EDT Reading Location ID and State: [facility] / [place] Tel , Service support , Discharge Plan Triage Chief Complaint: Fall ED Provider: Rex Banks Dx/Rx/DC Orders Clinical Impression: Dyspnea, Fall Instructions: ED Dyspnea Prescriptions: Continued amoxicillin-pot clavulanate 400-57 mg/5 mL suspension for reconstitution 10 ml PO BID 5 Days Qty: 100 RF: 0 No Action aspirin [Adult Aspirin Regimen] 81 mg tablet,delayed release (DR/EC) 81 mg PO DAILY RF: 0 atorvastatin 80 mg tablet 80 mg PO QHS Qty: 90 RF: 2 furosemide 40 mg tablet 40 mg PO DAILY Qty: 90 RF: 3 finasteride 5 mg tablet 5 mg PO DAILY Qty: 90 RF: 3 pantoprazole 20 mg tablet,delayed release (DR/EC) 20 mg PO DAILY RF: 0 albuterol sulfate 90 mcg/actuation HFA aerosol inhaler 2 puff inhalation Q4H PRN (Reason: shortness of breath or wheezing) Qty: 8.5 RF: 3 carvedilol 12.5 mg tablet 12.5 mg PO BID Qty: 180 RF: 3 insulin lispro 100 unit/mL insulin pen 1 sliding scale dose subcut .5 times daily RF: 0 (DME) low-sodium See Rx Instructions .Route .MEDSUPPLY Qty: 1 RF: 0 acetaminophen 500 MG tablet 1,000 mg PO QHS PRN PRN (Reason: Pain 1-10 Or Fever) RF: 0 spironolactone 25 mg tablet 40 mg PO DAILY RF: 0 loratadine [Allergy Relief (loratadine)] 10 mg Tablet 10 mg G-tube DAILY Qty: 0 RF: 0 Artificial Tears([id number]) 1-0.2-0.2 % Drops 2 drp EACH EYE Q1H PRN (Reason: DRY EYES) Qty: 0 RF: 0 insulin lispro 100 unit/mL Insulin Pen 10 unit SUBCUT 5X/DAY RF: 0 Vital AF 1.2 Will 0.08 gram- 1.2 kcal/mL Liquid 90 ml feeding tube TID RF: 0 losartan 50 mg tablet 50 mg PO DAILY RF: 0 amlodipine 5 mg tablet 5 mg G-tube DAILY RF: 0 alprazolam 0.5 mg tablet 0.5 mg PO BID RF: 0 insulin detemir U-100 100 unit/mL (3 mL) insulin pen 40 unit subcut QHS RF: 0 nitroglycerin 0.4 mg tablet, sublingual 0.4 mg SL Q5M PRN (Reason: Chest Pain) Qty: 30 RF: 0 (DME) Curity Gauze 4 X 4 sponge See Rx Instructions .ROUTE .MEDSUPPLY Qty: 1 RF: 0 fluoxetine 40 mg capsule 40 mg PO DAILY Qty: 90 RF: 2 fluoxetine 20 mg capsule 20 mg PO DAILY Qty: 90 RF: 2 buspirone 7.5 mg tablet 7.5 mg PO TID Qty: 90 RF: 2 (DME) Piston Syringe with ENFit 60 mL syringe See Rx Instructions .ROUTE .MEDSUPPLY Qty: 30 RF: 0 clopidogrel 75 mg tablet 75 mg PO DAILY Qty: 90 RF: 3 isosorbide mononitrate 30 mg tablet extended release 24 hr 30 mg PO DAILY Qty: 90 RF: 3 metoclopramide HCl [Reglan] 5 mg tablet 5 mg PO BID Qty: 60 RF: 0 pregabalin [Lyrica] 75 mg capsule 75 mg PO BID Qty: 60 RF: 1 trazodone 100 mg tablet 100 mg G-tube QHS Qty: 90 RF: 0 Primary Care Provider: Doretha Brown Referrals: Doretha Brown MD [Primary Care Provider] - 3-5 Days Disposition Disposition: Home, Self Care
[2022-05-03 03:51] LABS: International Normalized Ratio 1.1
[2022-05-03 03:58] LABS: Mucous, Urine 0 SEEN /hpf (<or=2+)
[2022-05-03 04:07] LABS: ALB/GLOB Ratio 0.8 RATIO (0.9-2.4); AST(SGOT) 20 U/L (15-37); Alanine Aminotransfer ALT/SGPT 23 U/L (16-61); Albumin, Serum 3.5 g/dL (3.2-5.0); Alkaline Phosphatase 116 U/L (45-117); Anion Gap 6 (5-15); BUN 22 mg/dL (7-18); BUN/Creat Ratio 15.5 RATIO (10-20); Calcium,Total 9.6 mg/dL (8.5-10.1); Chloride 102 mmol/L (98-107); Creatinine, Serum 1.42 mg/dL (0.70-1.30); EST Glomerular Filtration Rate 54 mL/min (>60); Est Glom Filt Rate - Afr Amer 65 mL/min (>60); Estimated Creatinine Clearance 54.98 ml/min; Globulin 4.5 g/dL (2.2-4.2); Glucose 51 mg/dL (74-106); Potassium 3.8 mmol/L (3.5-5.1); Sodium Level 139 mmol/L (136-145)
[2022-05-03 04:14] LABS: Lactic Acid 1.3 mmol/L (0.4-1.9)
[2022-05-03 04:40] LABS: Color, Urine Yellow (Yellow); Glucose, Dipstick Normal (Normal); Ketone-Dipstick Negative (Negative); Leukocyte Esterase-Dipstick 25 /ul (Negative); Nitrite-Dipstick Negative (Negative); Occult Blood-Urine 10 /ul (Negative); Protein-Dipstick 100 mg/dl (Negative); Urine Bilirubin Dipstick Negative (Negative); Urine Clarity Clear (Clear); Urine Urobilinogen 8 mg/dl (Normal)
[2022-05-03 04:51] LABS: Red Blood Cells-Urine 0-5 SEEN /hpf (0-5); Squamous Epithelial Cells - UA 0-5 SEEN /hpf (0-5); White Blood Cells 0-5 SEEN /hpf (0-5)
[2022-05-03 04:52] LABS: Bacteria RARE /hpf (None Seen)
[2022-05-03 05:52] VITALS: BP 152/66; PULSE 59; O2SAT 97
[2022-05-03] MEDS: Amox/Clav 400mg/5ml Susp 800 MG PO (05:55)
== END 2022-05-03 06:34 | disposition home or self-care (01) ==
PROVIDERS: Emergency Provider Emergency Medicine; PCP Internal Medicine; Visit Provider Emergency Medicine
DX: R06.02 Shortness of breath (principal); E11.51 Type 2 diabetes mellitus with diabetic peripheral angiopathy without gangrene; J44.9 Chronic obstructive pulmonary disease, unspecified; J96.11 Chronic respiratory failure with hypoxia; Z79.4 Long term (current) use of insulin; S50.312A Abrasion of left elbow, initial encounter; S80.211A Abrasion, right knee, initial encounter; Z87.01 Personal history of pneumonia (recurrent); F41.9 Anxiety disorder, unspecified; F32.A Depression, unspecified; M10.9 Gout, unspecified; E78.00 Pure hypercholesterolemia, unspecified; K21.9 Gastro-esophageal reflux disease without esophagitis; I25.2 Old myocardial infarction; I10 Essential (primary) hypertension; Z79.899 Other long term (current) drug therapy; G47.30 Sleep apnea, unspecified; Z99.81 Dependence on supplemental oxygen; Z87.442 Personal history of urinary calculi; I25.10 Atherosclerotic heart disease of native coronary artery without angina pectoris; Z79.82 Long term (current) use of aspirin; Z95.5 Presence of coronary angioplasty implant and graft; E66.9 Obesity, unspecified; W19.XXXA Unspecified fall, initial encounter
CPT/HCPCS: 71045; 80053; 81001; 83605; 85025; 85610; 85730; 87040; 87428; 94640; 99285; A4216

== ENCOUNTER 2022-05-12 14:59 | Outpatient (RCR) | payer MEDICARE, MEDICAID, SELFPAY ==
[2022-04-29 00:13] VITALS: BMI 37.4
--- NOTE | 2022-05-12 15:48 | EX.NTREPO ---
Medical Nutrition Therapy - History Nutrition Services has been consulted to:: Manage nutrient details of diet order, Manage enteral nutrition, Conduct nutrition education Current diet/nutrition support order:: low sodium, carbohydrate controlled - Anthropometric Measurements Height:: 5 ft 10 in Weight:: 118.388 kg Body Mass Index (BMI):: 37.4 - Assessment Food and Nutrient Intake: Telephone call w/ pt- PEG removed last week by Dr. Rodriguez. No plans to replace at this time. Pt wishes to eat orally despite counseling regarding risks of aspiration. Pt states he has not lost any wt. - Protein Calorie Malnutrition Evidence of Malnutrition Exists: No - Nutrition Intervention Nutrition Prescription: 1743-1240 calories/day (25 calories/kg IBW). 70-80 g protein/day (1.0 g/kg IBW). 1875mL fluid/day (25mL/kg IBW) - Food / Nutrient Delivery Interventions Summary of nutrition intervention:: Nutrition education provided Nutrition support ordered as / adjusted to:: <9458-0659 calories/day for wt loss; low sodium, consistent carbohydrate diet Nutrition Counseling: Pt again confirms understanding of risks associated w/ PO intake but expresses desire to consume food by mouth. Pt confirms he wants to continue w/ wt loss. Pt states he plans to read labels to limit carbs, sodium in diet. Pt states Gabriela has been cooking for him so they are eating out less often. Coordination of Nutrition Care: Pt and Gabriela w/ no other questions for RDN. Aware RDN available as needed. - MNT Monitoring Active Nutrition Patient: No Nutrition Status: Follow Up NOT indicated-Consult as Needed
[2022-05-12 15:50] VITALS: BMI 37.4
== END 2022-05-28 23:59 ==
LOC: NS 14:59
PROVIDERS: PCP Internal Medicine; Visit Provider Internal Medicine
DX: E11.22 Type 2 diabetes mellitus with diabetic chronic kidney disease (principal)
CPT/HCPCS: 97803

== ENCOUNTER 2022-05-13 14:05 | Emergency (ER) | payer MEDICARE, MEDICAID, SELFPAY ==
[2022-05-13 14:06] VITALS: BP 143/95; PULSE 79; RESP 20; TEMP 36.8; BMI 39.4
--- NOTE | 2022-05-13 14:26 | RAD_ITS ---
STUDY: X-RAY - LEFT FOOT CLINICAL: Male, 62 years old. Cellulitis. TECHNIQUE: view(s) of the foot. COMPARISON: None. FINDINGS: Normal talus, calcaneus, and tarsal bones. Degenerative changes at the tarsometatarsal joints. Prior screw fixation of the medial malleolus. Normal metatarsi. Normal metatarsophalangeal joint of the great toe. Normal tibial and fibular sesamoid bones. Normal interphalangeal joint of the great toe. Normal phalanges of the great toe. Normal second through fifth metatarsophalangeal joints. Normal interphalangeal joints and phalanges of the lesser toes. There is non-specific soft tissue swelling of the foot. Vascular calcification.. RAD/Foot min 3 Views IMPRESSION: Degenerative changes. Soft tissue swelling. Vascular calcification. Electronically Signed: Den Carver MD at 15:21 EDT ,
--- NOTE | 2022-05-13 14:27 | EX.ED.DYSGE1 ---
HPI History of Present Illness Chief Complaint: Cellulitis Informant: patient and family Narrative Narrative: 62-year-old male presenting with left foot infection. He has a history of diabetes peripheral vascular disease and heart failure. Family states they just noticed the wound on the bottom of his left foot today. He states that he sleeps in a recliner and where his foot rest there is pressure on that spot and he wonders if he developed something from that. He denies any fevers. He has had his toes amputated on the right and does have a history of MRSA. He states that he does not get regular foot checks. 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 Bronchiectasis with (acute) exacerbation Cardiology follow-up encounter Chronic cough Chronic respiratory failure with hypoxia COPD (chronic obstructive pulmonary disease) CPAP (continuous positive airway pressure) dependence Depression Diabetes Essential hypertension Gastric reflux GERD (gastroesophageal reflux disease) High cholesterol History of aspiration pneumonia History of echocardiogram History of edema History of heart attack History of non-ST elevation myocardial infarction (NSTEMI) (08/2016) History of pain when walking History of steroid therapy History of stress test Hyperglycemia due to type 2 diabetes mellitus Hypertension Insulin dependent diabetes mellitus Kidney stones Leg pain, right Leukocytosis Memory impairment Migraines Mood disorder Non-smoker On home oxygen therapy Peripheral vascular occlusive disease Pneumonia Prostate disease Pulmonary nodule, left Right ankle pain Shortness of breath on exertion Silent aspiration Sleep apnea Tremor Type 2 diabetes mellitus Vision loss of left eye Wears glasses Wound of left lower extremity Home Medications acetaminophen 500 mg tablet 1,000 mg PO QHS PRN PRN Pain 1-10 Or Fever 02/11/21 [History Last Taken 09/01/21] aspirin 81 mg tablet,delayed release (Adult Aspirin Regimen) 81 mg PO DAILY heart health 11/05/21 [History Last Taken 01/09/22] spironolactone 25 mg tablet 40 mg PO DAILY diuretic 11/08/21 [History Last Taken Unknown] loratadine 10 mg tablet (Allergy Relief (loratadine)) 10 mg G-tube DAILY #0 tabs 11/14/21 [Rx Last Taken Unknown] peg [id number] 1 %-0.2 %-0.2 % eye drops (Artificial Tears ([id number])) 2 drp EACH EYE Q1H PRN DRY EYES #0 mL 11/14/21 [Rx Last Taken Unknown] nitroglycerin 0.4 mg sublingual tablet 0.4 mg sublingual Q5M PRN Chest Pain #30 tabs 11/25/21 [Rx Last Taken Unknown] gauze bandage 4 X 4 sponge (Curity Gauze) #1 ea 11/27/21 [Rx Last Taken Unknown] atorvastatin 80 mg tablet 80 mg PO QHS cholesterol #90 tabs 01/09/22 [Rx Last Taken Unknown] finasteride 5 mg tablet 5 mg PO DAILY prostate #90 tabs 01/09/22 [Rx Last Taken Unknown] furosemide 40 mg tablet 40 mg PO DAILY fluid #90 tabs 01/09/22 [Rx Last Taken Unknown] insulin lispro 100 unit/mL subcutaneous pen 1 sliding scale dose subcut .5 times daily dm 01/27/22 [History Last Taken Unknown] albuterol sulfate 90 mcg/actuation aerosol inhaler 2 puff inhalation Q4H PRN shortness of breath or wheezing #8.5 grams 02/04/22 [Rx Last Taken Unknown] pantoprazole 20 mg tablet,delayed release 20 mg PO DAILY gerd 02/04/22 [History Last Taken Unknown] carvedilol 12.5 mg tablet 12.5 mg PO BID heart #180 tabs 02/05/22 [Rx Last Taken Unknown] nut.tx impaired digestive fxn-fiber 0.08 gram-1.2 kcal/mL oral liquid (Vital AF 1.2 Will) 90 ml feeding tube TID feeding 02/22/22 [History Last Taken Unknown] buspirone 7.5 mg tablet 7.5 mg PO TID mood #90 tabs 03/09/22 [Rx Last Taken Unknown] fluoxetine 20 mg capsule 20 mg PO DAILY depression #90 caps 03/09/22 [Rx Last Taken Unknown] fluoxetine 40 mg capsule 40 mg PO DAILY depression #90 caps 03/09/22 [Rx Last Taken Unknown] syringe, ENFit, non-sterile 60 mL (Piston Syringe with ENFit) #30 ea 03/20/22 [Rx Last Taken Unknown] alprazolam 0.5 mg tablet 0.5 mg PO BID anxiety 03/21/22 [History Last Taken Unknown] amlodipine 5 mg tablet 5 mg G-tube DAILY bp 03/21/22 [History Last Taken Unknown] losartan 50 mg tablet 50 mg PO DAILY bp 03/21/22 [History Last Taken Unknown] clopidogrel 75 mg tablet 75 mg PO DAILY blood thinner #90 tabs 03/30/22 [Rx Last Taken Unknown] isosorbide mononitrate 30 mg tablet,extended release 24 hr 30 mg PO DAILY heart #90 tabs 03/30/22 [Rx Last Taken Unknown] pregabalin 75 mg capsule (Lyrica) 75 mg PO BID nerve pain #60 caps 03/30/22 [Rx Last Taken Unknown] trazodone 100 mg tablet 100 mg G-tube QHS #90 tabs 03/30/22 [Rx Last Taken Unknown] low-sodium #1 ea 04/23/22 [Rx Last Taken Unknown] amoxicillin 400 mg-potassium clavulanate 57 mg/5 mL oral suspension 10 ml PO BID 5 days #100 mL 05/03/22 [Rx Last Taken Unknown] insulin detemir U-100 100 unit/mL (3 mL) subcutaneous pen 44 unit subcut QHS dm 05/06/22 [History Last Taken Unknown] insulin lispro 100 unit/mL subcutaneous pen 12 unit subcut 5X/DAY 05/06/22 [History Last Taken Unknown] clindamycin HCl 300 mg capsule 300 mg PO Q6H 7 days #28 caps 05/07/22 [Rx Last Taken Unknown] gauze bandage 4 X 4 (Bordered Gauze) #14 ea 05/07/22 [Rx Last Taken Unknown] cephalexin 500 mg capsule 500 mg PO Q6 #40 CAPSULES 05/13/22 [Rx Last Taken Unknown] sulfamethoxazole 400 mg-trimethoprim 80 mg tablet (Bactrim) 1 tab PO BID #20 tabs 05/13/22 [Rx Last Taken Unknown] Allergy/AdvReac Type Severity Reaction Status Date / Time allopurinol AdvReac Vomiting Verified 05/06/22 16:17 Influenza Virus Vaccines AdvReac Vomiting Verified 05/06/22 16:17 pneumococcal vaccine AdvReac Vomiting Verified 05/06/22 16:17 Family History Mother Diabetes Heart disease CHF Father Heart disease MA/CAD Myocardial infarction Surgical History H/O lithotripsy History of angioplasty of peripheral vessel (2016) History of angioplasty of peripheral vessel History of ankle surgery History of cardiac catheterization History of coronary artery stent placement (08/2016) History of coronary artery stent placement History of esophagogastroduodenoscopy (EGD) History of left heart catheterization (11/15/17) History of thyroid surgery Hx of lithotripsy Hx of surgery to heart and great vessels, presenting hazards to health Hx of surgical procedure Hx of thyroidectomy Hx of toe surgery Hx of toe surgery PEG (percutaneous endoscopic gastrostomy) status Social History household members: spouse housing: apartment Smoking Status: Never smoker alcohol intake: never substance use type: does not use ROS ROS ED Constitutional Constitutional ED: Denies chills, fever(s) or weight loss Eyes Eyes: Denies change in vision or diplopia ENT ENT ED: Denies ear pain, rhinorrhea or sore throat Cardiovascular Cardiovascular: Denies chest pain, orthopnea, palpitations or racing heartbeat Respiratory/Chest Respiratory/Chest: Denies cough, dyspnea or orthopnea Gastrointestinal Gastrointestinal: Denies abdominal pain, diarrhea, nausea or vomiting Genitourinary Genitourinary ED: Denies dysuria, hematuria or urinary frequency Musculoskeletal Musculoskeletal: Denies arthralgias or myalgias Integumentary Reports other Details: Left foot wound ; Denies abscess Neurologic Neurologic: Denies headache(s) or weakness Psychiatric Psychiatric: Denies anxiety, depression, suicidal ideation or suicidal thoughts Endocrine Endocrinology: Denies polydipsia, polyphagia or polyuria Allergic/Immunologic Allergic/Immunologic ED: Denies mouth swelling, tongue swelling or urticaria EXAM Physical Exam Const Vital Signs: 05/13/22 14:06 05/13/22 16:05 Temperature 98.2 F Temperature Source Temporal Pulse Rate 79 75 Respiratory Rate 20 H 14 Blood Pressure 143/95 H 134/78 H Blood Pressure Mean 111 96 Pulse Ox 98 Oxygen Delivery Method Room Air Positive well nourished, well developed and obese General Appearance ED: well developed Nutritional Appearance: obese HEENT Reports normocephalic, head/scalp atraumatic and moist mucous membranes Eyes PERRL and EOMs intact bilaterally Neck no lymphadenopathy, supple and no JVD Resp normal respiratory effort and clear to auscultation bilaterally Cardio regular rate, regular rhythm and no murmurs GI normal to inspection, nondistended, normoactive bowel sounds and non-tender Palpation: soft Back/Spine no CVA tenderness and normal ROM Extremity normal to inspection General Extremety ED: Negative for edema General Extremity: Negative for edema Neuro oriented x3 and CN's II-XII intact bilaterally Sensorium / Orientation: alert Motor Exam: strength 5/5 throughout Psych mental status grossly normal Mood & Affect: Negative for depressed or tearful Skin Skin Narrative: Located over the plantar surface near the heel of the foot is a 3 cm round area of skin that has sloughed away. There is some mild weeping of serosanguineous fluid. There is a central area of eschar. I do not appreciate significant surrounding erythema. There is no lymphangitic streaking. There is no significant swelling left foot from the right foot. MDM MDM MDM Narrative Medical decision making narrative: My interpretation of the plain films of the foot is no obvious gas or osteomyelitis. White count is 9.9. Patient is afebrile. I will start him on Keflex and Bactrim have him discontinue the clindamycin which was being dosed at 300 every 6. He is to follow-up at the wound clinic. Lab Data Attestation: I reviewed the patient's lab results. Labs: Laboratory Results - last 24 hr 05/13/22 05/13/22 05/13/22 14:50 15:32 16:23 WBC Cancelled Cancelled 9.9 Corrected WBC Cancelled Cancelled RBC Cancelled Cancelled 4.50 L Hgb Cancelled Cancelled 12.8 L Hct Cancelled Cancelled 40.0 MCV Cancelled Cancelled 88.9 MCH Cancelled Cancelled 28.4 MCHC Cancelled Cancelled 32.0 RDW Std Deviation Cancelled Cancelled 43.8 RDW Coeff of James Cancelled Cancelled 13.4 Plt Count Cancelled Cancelled 184 MPV Cancelled Cancelled 10.6 Immature Gran % (Auto) Cancelled Cancelled 0.300 Neut % (Auto) Cancelled Cancelled 65.5 Lymph % (Auto) Cancelled Cancelled 19.9 [place] % (Auto) Cancelled Cancelled 11.2 H Eos % (Auto) Cancelled Cancelled 2.7 Baso % (Auto) Cancelled Cancelled 0.4 Absolute Neuts (auto) Cancelled Cancelled 6.5 Absolute Lymphs (auto) Cancelled Cancelled 1.98 Total Counted Cancelled Cancelled Neutrophils % (Manual) Cancelled Cancelled Band Neutrophils % Cancelled Cancelled Lymphocytes % (Manual) Cancelled Cancelled Monocytes % (Manual) Cancelled Cancelled Eosinophils % (Manual) Cancelled Cancelled Basophils % (Manual) Cancelled Cancelled Metamyelocytes % Cancelled Cancelled Myelocytes % Cancelled Cancelled Promyelocytes % Cancelled Cancelled Blast Cells % Cancelled Cancelled Plasma Cell % (Manual) Cancelled Cancelled Other Cells % Cancelled Cancelled Nucleated RBC % Cancelled Cancelled 0 Nucleated RBCs/100 WBC Cancelled Cancelled Differential Comment Cancelled Cancelled Diff Path Review Cancelled Cancelled Hypersegmented Neuts Cancelled Cancelled Atypical Lymphocytes Cancelled Cancelled Reactive Lymphocytes Cancelled Cancelled Smudge Cells Cancelled Cancelled Toxic Granulation Cancelled Cancelled Toxic Vacuolation Cancelled Cancelled Dohle Bodies Cancelled Cancelled [place] Rods Cancelled Cancelled Platelet Estimate Cancelled Cancelled Plt Morphology Comment Cancelled Cancelled RBC Morphology Cancelled Cancelled Polychromasia Cancelled Cancelled Hypochromasia Cancelled Cancelled Poikilocytosis Cancelled Cancelled Basophilic Stippling Cancelled Cancelled Anisocytosis Cancelled Cancelled Microcytosis Cancelled Cancelled Macrocytosis Cancelled Cancelled Spherocytes Cancelled Cancelled Sickle Cells Cancelled Cancelled Target Cells Cancelled Cancelled Tear Drop Cells Cancelled Cancelled Ovalocytes Cancelled Cancelled Stomatocytes Cancelled Cancelled [place] Bodies Cancelled Cancelled [place] Cells Cancelled Cancelled Bite Cells Cancelled Cancelled Crenated Cell Cancelled Cancelled Acanthocytes (Spur) Cancelled Cancelled Rouleaux Cancelled Cancelled Schistocytes Cancelled Cancelled Radiography Diagnostic Testing: Clinical Impression(s) from Imaging Studies Foot X-Ray 05/13/22 14:26 IMPRESSION: Degenerative changes. Soft tissue swelling. Vascular calcification. Electronically Signed: Den Carver MD at 15:21 EDT , Discharge Plan Triage Chief Complaint: Cellulitis Other Complaint: Lower Extremity Injury ED Provider: Jason Bryan Dx/Rx/DC Orders Clinical Impression: Diabetic ulcer of left foot Instructions: ED Diabetic Foot Care Prescriptions: New cephalexin [cephalexin] 500 mg capsule 500 mg PO Q6 Qty: 40 0RF sulfamethoxazole-trimethoprim [Bactrim] 400-80 mg tablet 1 tab PO BID Qty: 20 0RF No Action aspirin [Adult Aspirin Regimen] 81 mg tablet,delayed release (DR/EC) 81 mg PO DAILY atorvastatin 80 mg tablet 80 mg PO QHS Qty: 90 2RF furosemide 40 mg tablet 40 mg PO DAILY Qty: 90 3RF finasteride 5 mg tablet 5 mg PO DAILY Qty: 90 3RF pantoprazole 20 mg tablet,delayed release (DR/EC) 20 mg PO DAILY albuterol sulfate 90 mcg/actuation HFA aerosol inhaler 2 puff inhalation Q4H PRN (Reason: shortness of breath or wheezing) Qty: 8.5 3RF Rx Instructions: administer with spacer carvedilol 12.5 mg tablet 12.5 mg PO BID Qty: 180 3RF insulin lispro 100 unit/mL insulin pen 1 sliding scale dose subcut .5 times daily Protocol: 3. Sliding Scale Insulin Med Dosing Condition: 150-189 mg/dl = 1 unit Condition: 190-229 mg/dl = 2 units Condition: 230-269 mg/dl = 3 units Condition: 270-309 mg/dl = 4 units Condition: 310-349 mg/dl = 5 units Condition: 350-399 mg/dl = 6 units Condition: 400-449 mg/dl = 7 units Condition: Greater than 449 call physician Protocol Text: - Use for Total Daily Dose of Insulin 37-55 units - Obsese, infected, or steroid patients MEDIUM DOSING ALGORITHIM Rx Instructions: take 8-16 units 5 times daily per sliding scale. (DME) low-sodium See Rx Instructions .Route .MEDSUPPLY Qty: 1 0RF Rx Instructions: Low-sodium diet insulin detemir U-100 100 unit/mL (3 mL) insulin pen 44 unit subcut QHS insulin lispro 100 unit/mL insulin pen 12 unit SUBCUT 5X/DAY Rx Instructions: 12 units base rate plus sliding scale in the morning, before meals, and once in evening before snack time clindamycin HCl 300 mg capsule 300 mg PO Q6H 7 Days Qty: 28 0RF (DME) gauze bandage [Bordered Gauze] 4 X 4 bandage See Rx Instructions .ROUTE .MEDSUPPLY Qty: 14 2RF Rx Instructions: clean and dry wound two times daily and apply gauze acetaminophen 500 MG tablet 1,000 mg PO QHS PRN PRN (Reason: Pain 1-10 Or Fever) spironolactone 25 mg tablet 40 mg PO DAILY loratadine [Allergy Relief (loratadine)] 10 mg Tablet 10 mg G-tube DAILY Qty: 0 0RF Artificial Tears([id number]) 1-0.2-0.2 % Drops 2 drp EACH EYE Q1H PRN (Reason: DRY EYES) Qty: 0 0RF Vital AF 1.2 Will 0.08 gram- 1.2 kcal/mL Liquid 90 ml feeding tube TID losartan 50 mg tablet 50 mg PO DAILY amlodipine 5 mg tablet 5 mg G-tube DAILY alprazolam 0.5 mg tablet 0.5 mg PO BID amoxicillin-pot clavulanate 400-57 mg/5 mL suspension for reconstitution 10 ml PO BID 5 Days Qty: 100 0RF nitroglycerin 0.4 mg tablet, sublingual 0.4 mg SL Q5M PRN (Reason: Chest Pain) Qty: 30 0RF (DME) Curity Gauze 4 X 4 sponge See Rx Instructions .ROUTE .MEDSUPPLY Qty: 1 0RF Rx Instructions: As directed fluoxetine 40 mg capsule 40 mg PO DAILY Qty: 90 2RF fluoxetine 20 mg capsule 20 mg PO DAILY Qty: 90 2RF buspirone 7.5 mg tablet 7.5 mg PO TID Qty: 90 2RF (DME) Piston Syringe with ENFit 60 mL syringe See Rx Instructions .ROUTE .MEDSUPPLY Qty: 30 0RF Rx Instructions: As directed clopidogrel 75 mg tablet 75 mg PO DAILY Qty: 90 3RF isosorbide mononitrate 30 mg tablet extended release 24 hr 30 mg PO DAILY Qty: 90 3RF pregabalin [Lyrica] 75 mg capsule 75 mg PO BID Qty: 60 1RF trazodone 100 mg tablet 100 mg G-tube QHS Qty: 90 0RF Primary Care Provider: Doretha Brown Referrals: Doretha Brown MD [Primary Care Provider] - As soon as possible Activity Restrictions/Additional Instructions: Discontinue the clindamycin. Please follow-up with the wound clinic-please call [phone]. Disposition Disposition: Home, Self Care
--- NOTE | 2022-05-13 14:58 | NURSING ---
[facility]CD REJECTED , TOO SHORT. LAB WILL REPRINT LABELS AND COME REDRAW
[2022-05-13 16:05] VITALS: BP 134/78; PULSE 75; RESP 14; O2SAT 98
[2022-05-13 16:31] LABS: Absolute Lymphocyte Count 1.98 X10^3/uL (0.83-4.51); Absolute Neutrophil Count 6.5 X10^3/uL (2.0-7.7); Basophil# 0.04 X10^3/uL; Basophil% 0.4 % (0-1); Eosinophil# 0.27 X10^3/uL; Eosinophils% 2.7 % (0-5); Hemoglobin 12.8 g/dL (13.0-16.5); Lymphocyte # 1.98 X10^3/ul (0.83-4.51); Lymphocyte % 19.9 % (19-41); Mean Corpuscular Hgb 28.4 pg (27.0-32.0); Mean Corpuscular Volume 88.9 fL (80-94); Mean Platelet Vol. 10.6 fl (6.2-12.0); Monocyte# 1.11 X10^3/uL; Monocyte% 11.2 % (0-10); NRBC Flagged by Analyzer 0 % (0-5); Neutrophil # 6.51 X10^3/uL (2.7-7.7); Neutrophil % 65.5 % (47-70); Platelet Count 184 K/mm3 (150-450); RBC Distribution Width CV 13.4 % (11.6-14.6); RBC Distribution Width SD 43.8 fl (35.1-43.9); White Blood Count 9.9 K/mm3 (4.4-11.0)
== END 2022-05-13 17:00 | disposition home or self-care (01) ==
PROVIDERS: Emergency Provider Emergency Medicine; PCP Internal Medicine; Visit Provider Emergency Medicine
DX: E11.621 Type 2 diabetes mellitus with foot ulcer (principal); E11.51 Type 2 diabetes mellitus with diabetic peripheral angiopathy without gangrene; L97.529 Non-pressure chronic ulcer of other part of left foot with unspecified severity; J44.9 Chronic obstructive pulmonary disease, unspecified; J96.11 Chronic respiratory failure with hypoxia; Z79.4 Long term (current) use of insulin; E66.9 Obesity, unspecified; M10.9 Gout, unspecified; F41.9 Anxiety disorder, unspecified; F32.A Depression, unspecified; M19.90 Unspecified osteoarthritis, unspecified site; Z87.01 Personal history of pneumonia (recurrent); I25.10 Atherosclerotic heart disease of native coronary artery without angina pectoris; I10 Essential (primary) hypertension; K21.9 Gastro-esophageal reflux disease without esophagitis; E78.00 Pure hypercholesterolemia, unspecified; I25.2 Old myocardial infarction; Z87.442 Personal history of urinary calculi; G43.909 Migraine, unspecified, not intractable, without status migrainosus; G47.30 Sleep apnea, unspecified; Z99.81 Dependence on supplemental oxygen; Z79.82 Long term (current) use of aspirin; Z79.899 Other long term (current) drug therapy; Z95.5 Presence of coronary angioplasty implant and graft; Z68.39 Body mass index [BMI] 39.0-39.9, adult
CPT/HCPCS: 99283; 36415; 73630; 85025

== ENCOUNTER 2022-05-14 18:38 | Inpatient (IN) | payer MEDICARE, MEDICAID, SELFPAY ==
[2022-05-14 18:39] VITALS: BP 139/83; PULSE 91; RESP 19; TEMP 37.7; O2SAT 98; BMI 41.2
[2022-05-14 18:42] VITALS: BP 139/83; PULSE 91; RESP 19; TEMP 37.7; O2SAT 98
[2022-05-14] MEDS: Acetaminophen 500 MG Tablet 1000 MG PO (18:50)
--- NOTE | 2022-05-14 18:54 | EDS_ITS ---
HPI History of Present Illness Chief Complaint: Fever Informant: patient, spouse/S.O. and EMS Narrative Narrative: 62-year-old male was seen yesterday for a diabetic foot ulcer. He had been on clindamycin for an unrelated PEG tube infection. His antibiotics were switched to Keflex and Bactrim. Today he developed fever. He notes that he is coughing more than normal and is concerned about his history of aspiration pneumonia. He did not take anything for the fever. He chronically wears home oxygen at 4 L. He notes nausea but no abdominal pain. 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 Bronchiectasis with (acute) exacerbation Cardiology follow-up encounter Chronic cough Chronic respiratory failure with hypoxia COPD (chronic obstructive pulmonary disease) CPAP (continuous positive airway pressure) dependence Depression Diabetes Essential hypertension Gastric reflux GERD (gastroesophageal reflux disease) High cholesterol History of aspiration pneumonia History of echocardiogram History of edema History of heart attack History of non-ST elevation myocardial infarction (NSTEMI) (08/2016) History of pain when walking History of steroid therapy History of stress test Hyperglycemia due to type 2 diabetes mellitus Hypertension Insulin dependent diabetes mellitus Kidney stones Leg pain, right Leukocytosis Memory impairment Migraines Mood disorder Non-smoker On home oxygen therapy Peripheral vascular occlusive disease Pneumonia Prostate disease Pulmonary nodule, left Right ankle pain Shortness of breath on exertion Silent aspiration Sleep apnea Tremor Type 2 diabetes mellitus Vision loss of left eye Wears glasses Wound of left lower extremity Home Medications acetaminophen 500 mg tablet 1,000 mg PO QHS PRN PRN Pain 1-10 Or Fever 02/11/21 [History Last Taken 09/01/21] aspirin 81 mg tablet,delayed release (Adult Aspirin Regimen) 81 mg PO DAILY heart health 11/05/21 [History Last Taken 01/09/22] spironolactone 25 mg tablet 40 mg PO DAILY diuretic 11/08/21 [History Last Taken Unknown] loratadine 10 mg tablet (Allergy Relief (loratadine)) 10 mg G-tube DAILY #0 tabs 11/14/21 [Rx Last Taken Unknown] peg [id number] 1 %-0.2 %-0.2 % eye drops (Artificial Tears ([id number])) 2 drp EACH EYE Q1H PRN DRY EYES #0 mL 11/14/21 [Rx Last Taken Unknown] nitroglycerin 0.4 mg sublingual tablet 0.4 mg sublingual Q5M PRN Chest Pain #30 tabs 11/25/21 [Rx Last Taken Unknown] gauze bandage 4 X 4 sponge (Curity Gauze) #1 ea 11/27/21 [Rx Last Taken Unknown] atorvastatin 80 mg tablet 80 mg PO QHS cholesterol #90 tabs 01/09/22 [Rx Last Taken Unknown] finasteride 5 mg tablet 5 mg PO DAILY prostate #90 tabs 01/09/22 [Rx Last Taken Unknown] furosemide 40 mg tablet 40 mg PO DAILY fluid #90 tabs 01/09/22 [Rx Last Taken Unknown] insulin lispro 100 unit/mL subcutaneous pen 1 sliding scale dose subcut .5 times daily dm 01/27/22 [History Last Taken Unknown] albuterol sulfate 90 mcg/actuation aerosol inhaler 2 puff inhalation Q4H PRN shortness of breath or wheezing #8.5 grams 02/04/22 [Rx Last Taken Unknown] pantoprazole 20 mg tablet,delayed release 20 mg PO DAILY gerd 02/04/22 [History Last Taken Unknown] carvedilol 12.5 mg tablet 12.5 mg PO BID heart #180 tabs 02/05/22 [Rx Last Taken Unknown] nut.tx impaired digestive fxn-fiber 0.08 gram-1.2 kcal/mL oral liquid (Vital AF 1.2 Will) 90 ml feeding tube TID feeding 02/22/22 [History Last Taken Unknown] buspirone 7.5 mg tablet 7.5 mg PO TID mood #90 tabs 03/09/22 [Rx Last Taken Unknown] fluoxetine 20 mg capsule 20 mg PO DAILY depression #90 caps 03/09/22 [Rx Last Taken Unknown] fluoxetine 40 mg capsule 40 mg PO DAILY depression #90 caps 03/09/22 [Rx Last Taken Unknown] syringe, ENFit, non-sterile 60 mL (Piston Syringe with ENFit) #30 ea 03/20/22 [Rx Last Taken Unknown] alprazolam 0.5 mg tablet 0.5 mg PO BID anxiety 03/21/22 [History Last Taken Unknown] amlodipine 5 mg tablet 5 mg G-tube DAILY bp 03/21/22 [History Last Taken Unknown] losartan 50 mg tablet 50 mg PO DAILY bp 03/21/22 [History Last Taken Unknown] clopidogrel 75 mg tablet 75 mg PO DAILY blood thinner #90 tabs 03/30/22 [Rx Last Taken Unknown] isosorbide mononitrate 30 mg tablet,extended release 24 hr 30 mg PO DAILY heart #90 tabs 03/30/22 [Rx Last Taken Unknown] pregabalin 75 mg capsule (Lyrica) 75 mg PO BID nerve pain #60 caps 03/30/22 [Rx Last Taken Unknown] trazodone 100 mg tablet 100 mg G-tube QHS #90 tabs 03/30/22 [Rx Last Taken Unknown] low-sodium #1 ea 04/23/22 [Rx Last Taken Unknown] amoxicillin 400 mg-potassium clavulanate 57 mg/5 mL oral suspension 10 ml PO BID 5 days #100 mL 05/03/22 [Rx Last Taken Unknown] insulin detemir U-100 100 unit/mL (3 mL) subcutaneous pen 44 unit subcut QHS dm 05/06/22 [History Last Taken Unknown] insulin lispro 100 unit/mL subcutaneous pen 12 unit subcut 5X/DAY 05/06/22 [History Last Taken Unknown] gauze bandage 4 X 4 (Bordered Gauze) #14 ea 05/07/22 [Rx Last Taken Unknown] cephalexin 500 mg capsule 500 mg PO Q6 #40 CAPSULES 05/13/22 [Rx Last Taken Unknown] sulfamethoxazole 400 mg-trimethoprim 80 mg tablet (Bactrim) 1 tab PO BID #20 tabs 05/13/22 [Rx Last Taken Unknown] Allergy/AdvReac Type Severity Reaction Status Date / Time allopurinol AdvReac Vomiting Verified 05/06/22 16:17 Influenza Virus Vaccines AdvReac Vomiting Verified 05/06/22 16:17 pneumococcal vaccine AdvReac Vomiting Verified 05/06/22 16:17 Family History Mother Diabetes Heart disease CHF Father Heart disease IN/CAD Myocardial infarction Surgical History H/O lithotripsy History of angioplasty of peripheral vessel (2017) History of angioplasty of peripheral vessel History of ankle surgery History of cardiac catheterization History of coronary artery stent placement (08/2016) History of coronary artery stent placement History of esophagogastroduodenoscopy (EGD) History of left heart catheterization (11/15/17) History of thyroid surgery Hx of lithotripsy Hx of surgery to heart and great vessels, presenting hazards to health Hx of surgical procedure Hx of thyroidectomy Hx of toe surgery Hx of toe surgery PEG (percutaneous endoscopic gastrostomy) status Social History household members: spouse housing: apartment Smoking Status: Never smoker alcohol intake: never substance use type: does not use ROS ROS ED Constitutional Constitutional ED: Reports chills and fever(s); Denies weight loss Eyes Eyes: Denies change in vision or diplopia ENT ENT ED: Denies ear pain, rhinorrhea or sore throat Cardiovascular Cardiovascular: Denies chest pain, orthopnea, palpitations or racing heartbeat Respiratory/Chest Respiratory/Chest: Reports cough; Denies dyspnea or orthopnea Gastrointestinal Gastrointestinal: Reports nausea; Denies abdominal pain, diarrhea or vomiting Genitourinary Genitourinary ED: Denies dysuria, hematuria or urinary frequency Musculoskeletal Musculoskeletal: Reports myalgias; Denies arthralgias Integumentary Reports other Details: See HPI ; Denies abscess or rash Neurologic Neurologic: Denies headache(s) or weakness Psychiatric Psychiatric: Denies anxiety, depression, suicidal ideation or suicidal thoughts Endocrine Endocrinology: Denies polydipsia, polyphagia or polyuria Allergic/Immunologic Allergic/Immunologic ED: Denies mouth swelling, tongue swelling or urticaria EXAM Physical Exam Const Vital Signs: 05/14/22 18:39 05/14/22 18:42 05/14/22 20:35 Temperature 99.9 F H 99.9 F H 97.6 F L Temperature Source Temporal Temporal Temporal Pulse Rate 91 91 83 Respiratory Rate 19 H 19 H 16 Blood Pressure 139/83 H 139/83 H 133/93 H Blood Pressure Mean 101 101 106 Pulse Ox 98 98 98 Oxygen Delivery Method Room Air Room Air Nasal Cannula Oxygen Flow Rate (L/min) 4 Positive well nourished, well developed and obese General Appearance ED: well developed Nutritional Appearance: obese HEENT Reports normocephalic, head/scalp atraumatic and moist mucous membranes Eyes PERRL and EOMs intact bilaterally Neck no lymphadenopathy, supple and no JVD Resp normal respiratory effort Auscultation: rhonchi Cardio regular rate, regular rhythm and no murmurs GI normal to inspection, nondistended, normoactive bowel sounds and non-tender Palpation: soft Back/Spine no CVA tenderness and normal ROM Extremity Extremity Narrative: See skin examination General Extremety ED: Negative for edema General Extremity: Negative for edema Neuro oriented x3 and CN's II-XII intact bilaterally Sensorium / Orientation: alert Motor Exam: strength 5/5 throughout Psych mental status grossly normal Mood & Affect: Negative for depressed or tearful Skin no rashes or lesions noted Skin Narrative: The left foot does not appear to have changed since yesterday. There is no increased erythema or lymphangitic streaking. There is no significant drainage at this time from the plantar wound. MDM MDM MDM Narrative Medical decision making narrative: Patient's white count is elevated today at 12.3. Creatinine 1.45. Lactic acid is normal 1.6. Blood cultures were not obtained because the patient has been on antibiotics for greater than a week. Patient received a dose of Unasyn to cover for potential aspiration given the fever cough and rhonchorous lung sounds. However my interpretation of the chest x-ray is no obvious infiltrate. His COVID and influenza were negative. We also added vancomycin because of the diabetic foot. He received Tylenol for fever. Lab Data Attestation: I reviewed the patient's lab results. Labs: Laboratory Results - last 24 hr 05/14/22 05/14/22 05/14/22 18:50 18:50 18:50 WBC 12.3 H RBC 4.37 L Hgb 12.4 L Hct 38.4 L MCV 87.9 MCH 28.4 MCHC 32.3 RDW Std Deviation 42.7 RDW Coeff of James 13.2 Plt Count 194 MPV 10.8 Immature Gran % (Auto) 0.300 Neut % (Auto) 84.1 H Lymph % (Auto) 5.[address] [place] % (Auto) 7.5 Eos % (Auto) 2.3 Baso % (Auto) 0.5 Absolute Neuts (auto) 10.4 H Absolute Lymphs (auto) 0.65 L Nucleated RBC % 0 PT 14.8 INR 1.2 APTT 27.7 Sodium 137 Potassium 4.1 Chloride 102 Carbon Dioxide 30.0 Anion Gap 5 BUN 22 H Creatinine 1.45 H Estim Creat Clear Calc 53.84 Est GFR (MDRD) Af Amer 63 Est GFR (MDRD) Non-Af 52 L BUN/Creatinine Ratio 15.2 Glucose 251 H Lactic Acid Calcium 8.7 Total Bilirubin 0.40 AST 18 ALT 15 L Alkaline Phosphatase 109 Total Protein 7.3 Albumin 3.1 L Globulin 4.2 Albumin/Globulin Ratio 0.7 L 05/14/22 18:50 WBC RBC Hgb Hct MCV MCH MCHC RDW Std Deviation RDW Coeff of James Plt Count MPV Immature Gran % (Auto) Neut % (Auto) Lymph % (Auto) [place] % (Auto) Eos % (Auto) Baso % (Auto) Absolute Neuts (auto) Absolute Lymphs (auto) Nucleated RBC % PT INR APTT Sodium Potassium Chloride Carbon Dioxide Anion Gap BUN Creatinine Estim Creat Clear Calc Est GFR (MDRD) Af Amer Est GFR (MDRD) Non-Af BUN/Creatinine Ratio Glucose Lactic Acid 1.6 Calcium Total Bilirubin AST ALT Alkaline Phosphatase Total Protein Albumin Globulin Albumin/Globulin Ratio Radiography Diagnostic Testing: Clinical Impression(s) from Imaging Studies Chest X-Ray 05/14/22 19:13 IMPRESSION: Persistent elevated right hemidiaphragm and mild basilar atelectasis or infiltrate. Clearing of prior left lower lobe consolidation Electronically Signed: Steven Mcgee MD at 19:29 EDT Reading Location ID and State: [address] [place] [address] , Service support , Discharge Plan Triage Chief Complaint: Fever Other Complaint: Abscess ED Provider: Jason Bryan Dx/Rx/DC Orders Clinical Impression: Acute febrile illness, Diabetic ulcer of left foot Prescriptions: No Action aspirin [Adult Aspirin Regimen] 81 mg tablet,delayed release (DR/EC) 81 mg PO DAILY atorvastatin 80 mg tablet 80 mg PO QHS Qty: 90 2RF furosemide 40 mg tablet 40 mg PO DAILY Qty: 90 3RF finasteride 5 mg tablet 5 mg PO DAILY Qty: 90 3RF pantoprazole 20 mg tablet,delayed release (DR/EC) 20 mg PO DAILY albuterol sulfate 90 mcg/actuation HFA aerosol inhaler 2 puff inhalation Q4H PRN (Reason: shortness of breath or wheezing) Qty: 8.5 3RF Rx Instructions: administer with spacer carvedilol 12.5 mg tablet 12.5 mg PO BID Qty: 180 3RF insulin lispro 100 unit/mL insulin pen 1 sliding scale dose subcut .5 times daily Protocol: 3. Sliding Scale Insulin Med Dosing Condition: 150-189 mg/dl = 1 unit Condition: 190-229 mg/dl = 2 units Condition: 230-269 mg/dl = 3 units Condition: 270-309 mg/dl = 4 units Condition: 310-349 mg/dl = 5 units Condition: 350-399 mg/dl = 6 units Condition: 400-449 mg/dl = 7 units Condition: Greater than 449 call physician Protocol Text: - Use for Total Daily Dose of Insulin 37-55 units - Obsese, infected, or steroid patients MEDIUM DOSING ALGORITHIM Rx Instructions: take 8-16 units 5 times daily per sliding scale. (DME) low-sodium See Rx Instructions .Route .MEDSUPPLY Qty: 1 0RF Rx Instructions: Low-sodium diet insulin detemir U-100 100 unit/mL (3 mL) insulin pen 44 unit subcut QHS insulin lispro 100 unit/mL insulin pen 12 unit SUBCUT 5X/DAY Rx Instructions: 12 units base rate plus sliding scale in the morning, before meals, and once in evening before snack time (DME) gauze bandage [Bordered Gauze] 4 X 4 bandage See Rx Instructions .ROUTE .MEDSUPPLY Qty: 14 2RF Rx Instructions: clean and dry wound two times daily and apply gauze acetaminophen 500 MG tablet 1,000 mg PO QHS PRN PRN (Reason: Pain 1-10 Or Fever) spironolactone 25 mg tablet 40 mg PO DAILY loratadine [Allergy Relief (loratadine)] 10 mg Tablet 10 mg G-tube DAILY Qty: 0 0RF Artificial Tears([id number]) 1-0.2-0.2 % Drops 2 drp EACH EYE Q1H PRN (Reason: DRY EYES) Qty: 0 0RF Vital AF 1.2 Will 0.08 gram- 1.2 kcal/mL Liquid 90 ml feeding tube TID losartan 50 mg tablet 50 mg PO DAILY amlodipine 5 mg tablet 5 mg G-tube DAILY alprazolam 0.5 mg tablet 0.5 mg PO BID amoxicillin-pot clavulanate 400-57 mg/5 mL suspension for reconstitution 10 ml PO BID 5 Days Qty: 100 0RF cephalexin [cephalexin] 500 mg capsule 500 mg PO Q6 Qty: 40 0RF sulfamethoxazole-trimethoprim [Bactrim] 400-80 mg tablet 1 tab PO BID Qty: 20 0RF nitroglycerin 0.4 mg tablet, sublingual 0.4 mg SL Q5M PRN (Reason: Chest Pain) Qty: 30 0RF (DME) Curity Gauze 4 X 4 sponge See Rx Instructions .ROUTE .MEDSUPPLY Qty: 1 0RF Rx Instructions: As directed fluoxetine 40 mg capsule 40 mg PO DAILY Qty: 90 2RF fluoxetine 20 mg capsule 20 mg PO DAILY Qty: 90 2RF buspirone 7.5 mg tablet 7.5 mg PO TID Qty: 90 2RF (DME) Piston Syringe with ENFit 60 mL syringe See Rx Instructions .ROUTE .MEDSUPPLY Qty: 30 0RF Rx Instructions: As directed clopidogrel 75 mg tablet 75 mg PO DAILY Qty: 90 3RF isosorbide mononitrate 30 mg tablet extended release 24 hr 30 mg PO DAILY Qty: 90 3RF pregabalin [Lyrica] 75 mg capsule 75 mg PO BID Qty: 60 1RF trazodone 100 mg tablet 100 mg G-tube QHS Qty: 90 0RF Primary Care Provider: Doretha Brown Referrals: Doretha Brown MD [Primary Care Provider] -
--- NOTE | 2022-05-14 18:56 | CM.ED ---
Social Work Note Pt's significant other She present at [facility]. SW met with She and provided support. SW to remain available should additional needs arise. Becca Walton LABOR SERVICE REPRESENTATIVE, FITTINGS FINISHER
--- NOTE | 2022-05-14 19:13 | RAD_ITS ---
STUDY: X-RAY CHEST REASON FOR EXAM: Male, 62 years old. fever TECHNIQUE: AP portable COMPARISON: 05/03/2022 FINDINGS: Elevated right hemidiaphragm and mild basilar atelectasis or infiltrate.. There is no demonstrated pleural abnormality. Normal size heart. Normal mediastinum and pat. Normal visualized pulmonary arteries. Normal visualized aortic arch and descending thoracic aorta. Dorsal spine demonstrates degenerative change. Normal visualized ribs, clavicles, and shoulders. There is no demonstrated abnormality of the visualized soft tissue structures of the upper abdomen. There is improved aeration in left lower lobe since prior exam. No other significant change RAD/Chest 1 View (Portable) IMPRESSION: Persistent elevated right hemidiaphragm and mild basilar atelectasis or infiltrate. Clearing of prior left lower lobe consolidation Electronically Signed: Steven Mcgee MD at 19:29 EDT ,
[2022-05-14 19:15] LABS: Absolute Lymphocyte Count 0.65 X10^3/uL (0.83-4.51); Absolute Neutrophil Count 10.4 X10^3/uL (2.0-7.7); Basophil# 0.06 X10^3/uL; Basophil% 0.5 % (0-1); Eosinophil# 0.28 X10^3/uL; Eosinophils% 2.3 % (0-5); Hematocrit 38.4 % (40-54); Hemoglobin 12.4 g/dL (13.0-16.5); Lymphocyte # 0.65 X10^3/ul (0.83-4.51); Lymphocyte % 5.3 % (19-41); Mean Corp Hgb Conc 32.3 g/dL (32-36); Mean Corpuscular Hgb 28.4 pg (27.0-32.0); Mean Corpuscular Volume 87.9 fL (80-94); Mean Platelet Vol. 10.8 fl (6.2-12.0); Monocyte# 0.92 X10^3/uL; Monocyte% 7.5 % (0-10); NRBC Flagged by Analyzer 0 % (0-5); Neutrophil # 10.39 X10^3/uL (2.7-7.7); Neutrophil % 84.1 % (47-70); Platelet Count 194 K/mm3 (150-450); RBC Distribution Width CV 13.2 % (11.6-14.6); RBC Distribution Width SD 42.7 fl (35.1-43.9); Red Blood Count 4.37 M/mm3 (4.6-6.2); White Blood Count 12.3 K/mm3 (4.4-11.0)
[2022-05-14 19:24] LABS: International Normalized Ratio 1.2; Prothrombin Time (Protime)PT. 14.8 SECONDS (11.7-14.9)
[2022-05-14 19:25] LABS: Partial Thromboplast Time 27.7 Seconds (24.1-36.2)
[2022-05-14 19:27] LABS: ALB/GLOB Ratio 0.7 RATIO (0.9-2.4); AST(SGOT) 18 U/L (15-37); Alanine Aminotransfer ALT/SGPT 15 U/L (16-61); Albumin, Serum 3.1 g/dL (3.2-5.0); Alkaline Phosphatase 109 U/L (45-117); Anion Gap 5 (5-15); BUN 22 mg/dL (7-18); BUN/Creat Ratio 15.2 RATIO (10-20); Calcium,Total 8.7 mg/dL (8.5-10.1); Chloride 102 mmol/L (98-107); Creatinine, Serum 1.45 mg/dL (0.70-1.30); EST Glomerular Filtration Rate 52 mL/min (>60); Est Glom Filt Rate - Afr Amer 63 mL/min (>60); Estimated Creatinine Clearance 53.84 ml/min; Globulin 4.2 g/dL (2.2-4.2); Glucose 251 mg/dL (74-106); Potassium 4.1 mmol/L (3.5-5.1); Protein, Total 7.3 g/dL (6.4-8.2); Sodium Level 137 mmol/L (136-145)
[2022-05-14 19:45] LABS: Lactic Acid 1.6 mmol/L (0.4-1.9)
[2022-05-14 20:35] VITALS: BP 133/93; PULSE 83; RESP 16; TEMP 36.4; O2SAT 98
[2022-05-14 21:08] LABS: Erythrocyte Sedimentation Rate 27 mm/hr (0-20)
--- NOTE | 2022-05-14 21:12 | PCM.HP.STD ---
Documented by User: Dr. Alicia Larkin DO 05/15/22 01:54 HPI - General General Date of Admission: 05/14/22 HPI Narrative REA HANNA, is a 62 M who presents to the emergency department on May 14, 2022 for a fever with cough and left foot wound. The patient has history of diabetes mellitus type 2 with peripheral vascular disease, gastroparesis, previous amputation of all toes on the right foot, and MRSA. Patient also has history of recurrent aspiration pneumonia with PEG tube removal on May 07, 2022 due to persistent difficulty with home care of PEG tube and infection. Patient was started on clindamycin for this. Patient then presented to the emergency department yesterday for a left foot wound over the plantar surface near the heel of the foot. Per family, wound was noted on the day of presentation. Patient was discharged home with the course of clindamycin discontinued and Keflex and Bactrim started. Patient then presented to the emergency department again today for a fever. Patient's states the fever was 103F orally just prior to arrival. Patient states that he was also having cough with shortness of breath at home and on arrival. Patient denies pain, but complains of itchy sensation of left foot wound. On assessment, patient denies shortness of breath. Dr. Larkin dictation Mr. Hanna is a 62-year-old male who presented to the emergency department at [facility] on 05/14/2022 with new developed fever and an ongoing left foot wound. The patient was evidently seen in the emergency department yesterday for his left foot wound. He is unclear how long its been present and they noted that they just noticed it being there on the . At that time he was not having any systemic symptoms and his white count was normal so he was therefore sent home on oral antibiotics (Bactrim and Keflex). He started these at that time but then developed a temperature at home and they reported this to be 103, chills, and persistent wound on his foot with some pain that was mild secondary to his chronic neuropathy. The patient indicates he has a cough but it is chronic and really has had no changes in his respiratory status compared to his baseline. He remains on his 4 L nasal cannula which is his baseline for his chronic respiratory failure. He states he is very unclear how this occurred but does admit to altered sensation in his feet. The patient does not have any considerable pain at the area but does complain of some itching. He also reported some dysuria but is otherwise asymptomatic. Vital signs on presentation show temperature of 99.9, heart rate of 91, blood pressure of 139/83, respiratory rate of 19, and oxygen saturation of 98% on 4 L nasal cannula. His CBC shows a leukocytosis with a white count of 12.3 up from 9.9 yesterday. There is a left shift. Coags are normal. His chemistry panel shows mild acute kidney injury with a BUN of 22 and a serum creatinine of 1.45. His serum glucose is elevated at 251. A lactic acid was obtained and normal at 1.6. His liver functions are normal. A sed rate was 12.8 and an ESR was 27. His UA was unremarkable for any signs of infection however he did appear to be hemoconcentrated with a specific gravity 1.02 he also has microalbuminemia and glucosuria. His chest x-ray was overall unremarkable for any acute findings. Left foot x-rays show degenerative changes of the foot without acute fracture or dislocation and no evidence of OM. In the emergency department he was started on IV antibiotics and Unasyn and vancomycin and given IV fluids. [facility] Medical History (Updated 05/15/22 @ 00:[address] 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 Blind left eye Bronchiectasis with (acute) exacerbation Cardiology follow-up encounter Chronic cough Chronic respiratory failure with hypoxia COPD (chronic obstructive pulmonary disease) CPAP (continuous positive airway pressure) dependence Depression Diabetes Essential hypertension Gastric reflux GERD (gastroesophageal reflux disease) High cholesterol History of aspiration pneumonia History of echocardiogram History of edema History of gout History of heart attack History of non-ST elevation myocardial infarction (NSTEMI) (08/2016) History of pain when walking History of steroid therapy History of stress test Hyperglycemia due to type 2 diabetes mellitus Hypertension Insulin dependent diabetes mellitus Kidney stones Leg pain, right Leukocytosis Memory impairment Migraines Mood disorder Non-smoker On home oxygen therapy Peripheral vascular occlusive disease Pneumonia Prostate disease Pulmonary nodule, left Right ankle pain Shortness of breath on exertion Silent aspiration Sleep apnea Tremor Type 2 diabetes mellitus Vision loss of left eye Wears glasses Wound of left lower extremity Home Medications acetaminophen 500 mg tablet 1,000 mg PO QHS PRN PRN Pain 1-10 Or Fever 02/11/21 [History Last Taken 05/14/22 18:50 1000] aspirin 81 mg tablet,delayed release (Adult Aspirin Regimen) 81 mg PO DAILY heart health 11/05/21 [History Last Taken 05/14/22 10:00] spironolactone 25 mg tablet 40 mg PO DAILY diuretic 11/08/21 [History Last Taken Unknown] loratadine 10 mg tablet (Allergy Relief (loratadine)) 10 mg G-tube DAILY #0 tabs 11/14/21 [Rx Last Taken Unknown] peg [id number] 1 %-0.2 %-0.2 % eye drops (Artificial Tears ([id number])) 2 drp EACH EYE Q1H PRN DRY EYES #0 mL 11/14/21 [Rx Last Taken Unknown] nitroglycerin 0.4 mg sublingual tablet 0.4 mg sublingual Q5M PRN Chest Pain #30 tabs 11/25/21 [Rx Last Taken Unknown] gauze bandage 4 X 4 sponge (Curity Gauze) #1 ea 11/27/21 [Rx Last Taken Unknown] atorvastatin 80 mg tablet 80 mg PO QHS cholesterol #90 tabs 01/09/22 [Rx Last Taken 05/13/22 23:00] finasteride 5 mg tablet 5 mg PO DAILY prostate #90 tabs 01/09/22 [Rx Last Taken Unknown] furosemide 40 mg tablet 40 mg PO DAILY fluid #90 tabs 01/09/22 [Rx Last Taken Unknown] insulin lispro 100 unit/mL subcutaneous pen 1 sliding scale dose subcut .5 times daily dm 01/27/22 [History Last Taken Unknown] albuterol sulfate 90 mcg/actuation aerosol inhaler 2 puff inhalation Q4H PRN shortness of breath or wheezing #8.5 grams 02/04/22 [Rx Last Taken Unknown] pantoprazole 20 mg tablet,delayed release 20 mg PO DAILY gerd 02/04/22 [History Last Taken Unknown] carvedilol 12.5 mg tablet 12.5 mg PO BID heart #180 tabs 02/05/22 [Rx Last Taken Unknown] nut.tx impaired digestive fxn-fiber 0.08 gram-1.2 kcal/mL oral liquid (Vital AF 1.2 Will) 90 ml feeding tube TID feeding 02/22/22 [History Last Taken Unknown] buspirone 7.5 mg tablet 7.5 mg PO TID mood #90 tabs 03/09/22 [Rx Last Taken 05/14/22 10:00] fluoxetine 20 mg capsule 20 mg PO DAILY depression #90 caps 03/09/22 [Rx Last Taken Unknown] fluoxetine 40 mg capsule 40 mg PO DAILY depression #90 caps 03/09/22 [Rx Last Taken Unknown] syringe, ENFit, non-sterile 60 mL (Piston Syringe with ENFit) #30 ea 03/20/22 [Rx Last Taken Unknown] alprazolam 0.5 mg tablet 0.5 mg PO BID anxiety 03/21/22 [History Last Taken 05/14/22 10:00] amlodipine 5 mg tablet 5 mg G-tube DAILY bp 03/21/22 [History Last Taken 05/14/22 10:00] losartan 50 mg tablet 50 mg PO DAILY bp 03/21/22 [History Last Taken Unknown] clopidogrel 75 mg tablet 75 mg PO DAILY blood thinner #90 tabs 03/30/22 [Rx Last Taken Unknown] isosorbide mononitrate 30 mg tablet,extended release 24 hr 30 mg PO DAILY heart #90 tabs 03/30/22 [Rx Last Taken Unknown] pregabalin 75 mg capsule (Lyrica) 75 mg PO BID nerve pain #60 caps 03/30/22 [Rx Last Taken Unknown] trazodone 100 mg tablet 100 mg G-tube QHS #90 tabs 03/30/22 [Rx Last Taken Unknown] low-sodium #1 ea 04/23/22 [Rx Last Taken Unknown] amoxicillin 400 mg-potassium clavulanate 57 mg/5 mL oral suspension 10 ml PO BID 5 days #100 mL 05/03/22 [Rx Last Taken Unknown] insulin detemir U-100 100 unit/mL (3 mL) subcutaneous pen 44 unit subcut QHS dm 05/06/22 [History Last Taken Unknown] insulin lispro 100 unit/mL subcutaneous pen 12 unit subcut 5X/DAY 05/06/22 [History Last Taken Unknown] gauze bandage 4 X 4 (Bordered Gauze) #14 ea 05/07/22 [Rx Last Taken Unknown] cephalexin 500 mg capsule 500 mg PO Q6 #40 CAPSULES 05/13/22 [Rx Last Taken Unknown] sulfamethoxazole 400 mg-trimethoprim 80 mg tablet (Bactrim) 1 tab PO BID #20 tabs 05/13/22 [Rx Last Taken Unknown] Allergy/AdvReac Type Severity Reaction Status Date / Time allopurinol AdvReac Vomiting Verified 05/06/22 16:17 Influenza Virus Vaccines AdvReac Vomiting Verified 05/06/22 16:17 pneumococcal vaccine AdvReac Vomiting Verified 05/06/22 16:17 Family History Mother Diabetes Heart disease CHF Father Heart disease AK/CAD Myocardial infarction Surgical History H/O lithotripsy History of angioplasty of peripheral vessel (2016) History of angioplasty of peripheral vessel History of ankle surgery History of cardiac catheterization History of coronary artery stent placement (08/2016) History of coronary artery stent placement History of esophagogastroduodenoscopy (EGD) History of left heart catheterization (11/15/17) History of thyroid surgery Hx of lithotripsy Hx of surgery to heart and great vessels, presenting hazards to health Hx of surgical procedure Hx of thyroidectomy Hx of toe surgery Hx of toe surgery PEG (percutaneous endoscopic gastrostomy) status Social History household members: spouse housing: apartment Smoking Status: Never smoker alcohol intake: never substance use type: does not use ROS Constitutional Constitutional: Reports chills; Denies anorexia, change in weight, fatigue, malaise, night sweats, weakness or other Eyes Eyes: Denies blurry vision, change in eye color, change in vision, discharge from eye(s), double vision, erythema, eye pain, loss of vision or other ENT HEENT: Reports dysphagia; Denies abnormal hearing, epistaxis, hearing loss, post nasal drip or sinus pressure Cardiovascular Cardiovascular: Denies claudication or dyspnea on exertion Respiratory/Chest Respiratory/Chest: Reports shortness of breath with exertion; Denies excessive phlegm production, hemoptysis, shortness of breath at rest or wheezing Gastrointestinal Gastrointestinal: Denies coffee ground emesis, dyspepsia, loose stools or melena Genitourinary Genitourinary: Reports burning urination and urinary urgency; Denies hematuria, nocturia or urinary hesitancy Musculoskeletal Musculoskeletal: Denies arthralgias, back pain, joint pain, joint stiffness, joint swelling, myalgias, neck pain or other Neurologic Neurologic: Reports paresthesias; Denies abnormal gait, abnormal speech, disequilibrium, focal weakness, seizure-like activity, seizures, syncope or tremor(s) Psychiatric Psychiatric: Denies homicidal ideation or suicidal ideation Endocrine Endocrinology: Denies change in body appearance, cold intolerance, heat intolerance or other Hematologic/Lymphatic Hematologic/Lymphatic: Denies anemia or lymphadenopathy Allergic/Immunologic Allergic/Immunologic: Denies rhinitis, eczemia or asthma Vital Signs Vital Signs Vital Signs: 05/14/22 18:39 05/14/22 18:42 05/14/22 20:35 Temperature 99.9 F H 99.9 F H 97.6 F L Temperature Source Temporal Temporal Temporal Pulse Rate 91 91 83 Respiratory Rate 19 H 19 H 16 Blood Pressure 139/83 H 139/83 H 133/93 H Blood Pressure Mean 101 101 106 Pulse Ox 98 98 98 Oxygen Delivery Method Room Air Room Air Nasal Cannula Oxygen Flow Rate (L/min) 4 Weight Weight: 130.4 kg Body Mass Index (BMI) 41.2 Physical Exam Const Constitutional Narrative: Patient is an upper middle-aged white male who is morbidly obese with a BMI of 41.2 who appears comfortable and nontoxic, is at bedside, patient is currently on his baseline 4 L nasal cannula with stable oxygen saturations HEENT normocephalic, head/scalp atraumatic, hearing grossly normal bilaterally and moist oral mucous membranes HEENT Narrative: Mallampati 3, no thrush, dentition is poor Eyes conjunctivae normal Eyes Narrative: No scleral icterus Neck no JVD and no carotid bruits Resp Resp Narrative: Diffusely diminished but clear Auscultation: Negative for crackles, rales, rhonchi or wheezes Cardio no rub, no gallops, no clicks and no JVD GI non-distended GI Narrative: PEG tube site appears to be healing well-no significant drainage. [place] granulation tissue present with central area of purulence. No surrounding erythema, lymphangitic streaking, or drainage. Extremity Extremity Narrative: Radial pulses 2+ bilaterally. Pedal pulses and posterior tibial pulses 1+ with delayed capillary refill, no cyanosis or clubbing Skin Skin Narrative: 2 cm scab on left elbow and right knee Neuro CN's II-XII intact bilaterally and no focal motor deficits Neuro Narrative: Mild generalized weakness Sensorium / Orientation: oriented to place and oriented to time Psych Psych Narrative: Mood was somewhat depressed patient states he is sad that he is going to be in the hospital for Father's Day Results Lab / Micro Data Result Diagrams: 05/14/22 18:50 05/14/22 18:50 Labs: Laboratory Results - last 24 hr 05/14/22 18:50: WBC 12.3 H, RBC 4.37 L, Hgb 12.4 L, Hct 38.4 L, MCV 87.9, MCH 28.4, MCHC 32.3, RDW Std Deviation 42.7, RDW Coeff of James 13.2, Plt Count 194, MPV 10.8, Immature Gran % (Auto) 0.300, Neut % (Auto) 84.1 H, Lymph % (Auto) 5.3 L, Morris % (Auto) 7.5, Eos % (Auto) 2.3, Baso % (Auto) 0.5, Absolute Neuts (auto) 10.4 H, Absolute Lymphs (auto) 0.65 L, Nucleated RBC % 0 05/14/22 18:50: PT 14.8, INR 1.2, APTT 27.7 05/14/22 18:50: Sodium 137, Potassium 4.1, Chloride 102, Carbon Dioxide 30.0, Anion Gap 5, BUN 22 H, Creatinine 1.45 H, Estim Creat Clear Calc 53.84, Est GFR (MDRD) Af Amer 63, Est GFR (MDRD) Non-Af 52 L, BUN/Creatinine Ratio 15.2, Glucose 251 H, Calcium 8.7, Total Bilirubin 0.40, AST 18, ALT 15 L, Alkaline Phosphatase 109, Total Protein 7.3, Albumin 3.1 L, Globulin 4.2, Albumin/Globulin Ratio 0.7 L 05/14/22 18:50: Lactic Acid 1.6 05/14/22 18:50: ESR 27 H 05/14/22 18:50: C-React Prot Ext Range 12.80 H Micro: Microbiology 05/14/22 18:50 Nasal Secretion SARS-CoV-2 & FLU Antigen (Rapid) - Final Radiology Impression Chest X-Ray 05/14/22 19:13 IMPRESSION: Persistent elevated right hemidiaphragm and mild basilar atelectasis or infiltrate. Clearing of prior left lower lobe consolidation Electronically Signed: Steven Mcgee MD at 19:29 EDT Reading Location ID and State: [facility] / [place] , Service support , Assessment & Plan Assessment/Plan (1) Diabetic ulcer of left foot: (2) Acute febrile illness: PLAN: Plan Diabetic ulcer of left foot -Continue Unasyn and vancomycin for broad spectrum coverage of potential respiratory and wound pathogens including MRSA -Trend CBC with differential -Wound culture -Consult podiatry -Consult wound nurse -Elevate extremity Acute febrile illness -Possibly secondary to left foot wound as well as potential early aspiration pneumonia -Monitor left foot wound for progressive development -Patient is maintaining oxygen saturation, 98-100%, on baseline 4 L nasal cannula -Leukocytosis with left shift White blood cell count 12.3 -Urinalysis -Venous blood cultures x2 -Trend CBCD -Acetaminophen as needed for fever Leukocytosis with left shift -White blood cell count 12.3 with neutrophils at 84%, increased from May 13 ER visit with white blood cell count 9.9 and neutrophils at 65.5 -Trend CBCD Acute kidney injury -Creatinine 1.45 today, elevated from 1.42 on May 03 and 1.15 on March 23 -Possibly secondary to being dry from febrile illness -Give 1 L 0.9 saline at 75 mL/hr -Hold losartan and Lasix -Repeat BMP in a.m. Diabetes mellitus type II -Hbg A1c 8.0 11/18 -BGT ACHS-Insulin lispro sliding scale TIDAC -Continue insulin glargine -Continue carbohydrate controlled diet Peripheral vascular occlusive disease -Continue atorvastatin -Continue aspirin 81 mg Chronic obstructive pulmonary disorder -Continue home oxygen at 4 L nasal cannula -Albuterol aerosols as needed -Continue CPAP at night and during naps -Encourage incentive spirometer Hypertension -Continue carvedilol Diastolic heart failure -Continue spironolactone -Continue isosorbide mononitrate -Holding Lasix due to elevated creatinine History of aspiration pneumonia -Continue minced and moist diet -Speech therapy evaluation History of coronary artery stent placement -Continue Plavix History of anxiety and depression -Continue alprazolam -Continue buspirone -Continue fluoxetine Obesity -Encourage weight loss GI prophylaxis -Pantoprazole 20 mg p.o. daily DVT prophylaxis -Apply SCDs -Lovenox 40 mg twice daily CODE STATUS -Full code Dr. Larkin dictation: Left foot diabetic ulcer-plantar surface -We will transition from Unasyn to Zosyn given concern for Pseudomonas and a diabetic foot wound -Continue vancomycin -Obtain wound cultures and MRSA PCR the wound -Wound care consultation -Elevate extremity -Very mild elevations of sed rate and CRP -Anticipate bedside debridement -Consult podiatry Acute febrile illness -Suspect related to the above -Wound cultures pending -Blood cultures pending -Continue IV antibiotics -Tylenol as needed CELESTE -Hold home losartan and Lasix -Patient appears mildly dehydrated -IV fluids at 1 L with normal saline at 75 cc/h -Could be related to Bactrim use -Repeat BMP in a.m. DM-2 -Patient has had poor control previously with his most recent hemoglobin A1c documented at 8.0 -Check a.m. hemoglobin A1c -Continue home Levemir -Continue sliding scale -Accu-Cheks before meals and at bedtime -Cardiac/carb controlled diet Chronic hypoxic respiratory failure -Patient with history of recurrent aspiration pneumonia -Currently respiratory status is at baseline -Continue home oxygen supplementation of 4 L nasal cannula -Recommend continued outpatient follow-up with pulmonary medicine History of dysphagia/gastroparesis -Patient has had PEG previously been a Luigi tube and then a recurrent PEG -Per patient's wishes these of all been removed at this time -J-tube recommended however patient declined -Patient remains chronic risk for aspiration and aspiration pneumonias -Speech therapy to evaluate -Last recommended diet by speech therapy was minced/moist with thin liquids -Continue outpatient follow-up with Dr. Rodriguez Peripheral vascular disease -Continue aspirin Plavix CAD/HTN/HPL -Continue home carvedilol -Continue home amlodipine -Hold home Lasix -Continue home isosorbide mononitrate -Hold home Aldactone -Hold home losartan given CELESTE GERD -Continue Protonix Diabetic neuropathy -Continue Lyrica Chronic diastolic heart failure -Currently compensated -Aldactone and Lasix on hold secondary to serum creatinine elevation Anxiety/depression -Continue home Xanax If and continue BuSpar -Continue home fluoxetine Morbid obesity -Recommend weight loss -Complicates treatment, prognosis, outcomes DVT prophylaxis -SCDs -Lovenox 40 mg twice daily CODE STATUS -Full code Charges/Coding Visit Charges Inpatient E&M: 43015 Init Hosp L3 Documented by User: NIKHIL MARTÍNEZ 05/15/22 00:02 HPI - General General Date of Admission: 05/14/22 Date of Service: 05/14/22 Chief Complaint: Fever HPI Narrative REA HANNA, is a 62 M who presents to the emergency department on May 14, 2022 for a fever with cough and left foot wound. The patient has history of diabetes mellitus type 2 with peripheral vascular disease, gastroparesis, previous amputation of all toes on the right foot, and MRSA. Patient also has history of recurrent aspiration pneumonia with PEG tube removal on May 07, 2022 due to persistent difficulty with home care of PEG tube and infection. Patient was started on clindamycin for this. Patient then presented to the emergency department yesterday for a left foot wound over the plantar surface near the heel of the foot. Per family, wound was noted on the day of presentation. Patient was discharged home with the course of clindamycin discontinued and Keflex and Bactrim started. Patient then presented to the emergency department again today for a fever. Patient's states the fever was 103F orally just prior to arrival. Patient states that he was also having cough with shortness of breath at home and on arrival. Patient denies pain, but complains of itchy sensation of left foot wound. On assessment, patient denies shortness of breath. [facility] Medical History (Updated 05/15/22 @ 00:[address] 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 Blind left eye Bronchiectasis with (acute) exacerbation Cardiology follow-up encounter Chronic cough Chronic respiratory failure with hypoxia COPD (chronic obstructive pulmonary disease) CPAP (continuous positive airway pressure) dependence Depression Diabetes Essential hypertension Gastric reflux GERD (gastroesophageal reflux disease) High cholesterol History of aspiration pneumonia History of echocardiogram History of edema History of gout History of heart attack History of non-ST elevation myocardial infarction (NSTEMI) (08/2016) History of pain when walking History of steroid therapy History of stress test Hyperglycemia due to type 2 diabetes mellitus Hypertension Insulin dependent diabetes mellitus Kidney stones Leg pain, right Leukocytosis Memory impairment Migraines Mood disorder Non-smoker On home oxygen therapy Peripheral vascular occlusive disease Pneumonia Prostate disease Pulmonary nodule, left Right ankle pain Shortness of breath on exertion Silent aspiration Sleep apnea Tremor Type 2 diabetes mellitus Vision loss of left eye Wears glasses Wound of left lower extremity Home Medications acetaminophen 500 mg tablet 1,000 mg PO QHS PRN PRN Pain 1-10 Or Fever 02/11/21 [History Last Taken 05/14/22 18:50 1000] aspirin 81 mg tablet,delayed release (Adult Aspirin Regimen) 81 mg PO DAILY heart health 11/05/21 [History Last Taken 05/14/22 10:00] spironolactone 25 mg tablet 40 mg PO DAILY diuretic 11/08/21 [History Last Taken Unknown] loratadine 10 mg tablet (Allergy Relief (loratadine)) 10 mg G-tube DAILY #0 tabs 11/14/21 [Rx Last Taken Unknown] peg [id number] 1 %-0.2 %-0.2 % eye drops (Artificial Tears ([id number])) 2 drp EACH EYE Q1H PRN DRY EYES #0 mL 11/14/21 [Rx Last Taken Unknown] nitroglycerin 0.4 mg sublingual tablet 0.4 mg sublingual Q5M PRN Chest Pain #30 tabs 11/25/21 [Rx Last Taken Unknown] gauze bandage 4 X 4 sponge (Curity Gauze) #1 ea 11/27/21 [Rx Last Taken Unknown] atorvastatin 80 mg tablet 80 mg PO QHS cholesterol #90 tabs 01/09/22 [Rx Last Taken 05/13/22 23:00] finasteride 5 mg tablet 5 mg PO DAILY prostate #90 tabs 01/09/22 [Rx Last Taken Unknown] furosemide 40 mg tablet 40 mg PO DAILY fluid #90 tabs 01/09/22 [Rx Last Taken Unknown] insulin lispro 100 unit/mL subcutaneous pen 1 sliding scale dose subcut .5 times daily dm 01/27/22 [History Last Taken Unknown] albuterol sulfate 90 mcg/actuation aerosol inhaler 2 puff inhalation Q4H PRN shortness of breath or wheezing #8.5 grams 02/04/22 [Rx Last Taken Unknown] pantoprazole 20 mg tablet,delayed release 20 mg PO DAILY gerd 02/04/22 [History Last Taken Unknown] carvedilol 12.5 mg tablet 12.5 mg PO BID heart #180 tabs 02/05/22 [Rx Last Taken Unknown] nut.tx impaired digestive fxn-fiber 0.08 gram-1.2 kcal/mL oral liquid (Vital AF 1.2 Will) 90 ml feeding tube TID feeding 02/22/22 [History Last Taken Unknown] buspirone 7.5 mg tablet 7.5 mg PO TID mood #90 tabs 03/09/22 [Rx Last Taken 05/14/22 10:00] fluoxetine 20 mg capsule 20 mg PO DAILY depression #90 caps 03/09/22 [Rx Last Taken Unknown] fluoxetine 40 mg capsule 40 mg PO DAILY depression #90 caps 03/09/22 [Rx Last Taken Unknown] syringe, ENFit, non-sterile 60 mL (Piston Syringe with ENFit) #30 ea 03/20/22 [Rx Last Taken Unknown] alprazolam 0.5 mg tablet 0.5 mg PO BID anxiety 03/21/22 [History Last Taken 05/14/22 10:00] amlodipine 5 mg tablet 5 mg G-tube DAILY bp 03/21/22 [History Last Taken 05/14/22 10:00] losartan 50 mg tablet 50 mg PO DAILY bp 03/21/22 [History Last Taken Unknown] clopidogrel 75 mg tablet 75 mg PO DAILY blood thinner #90 tabs 03/30/22 [Rx Last Taken Unknown] isosorbide mononitrate 30 mg tablet,extended release 24 hr 30 mg PO DAILY heart #90 tabs 03/30/22 [Rx Last Taken Unknown] pregabalin 75 mg capsule (Lyrica) 75 mg PO BID nerve pain #60 caps 03/30/22 [Rx Last Taken Unknown] trazodone 100 mg tablet 100 mg G-tube QHS #90 tabs 03/30/22 [Rx Last Taken Unknown] low-sodium #1 ea 04/23/22 [Rx Last Taken Unknown] amoxicillin 400 mg-potassium clavulanate 57 mg/5 mL oral suspension 10 ml PO BID 5 days #100 mL 05/03/22 [Rx Last Taken Unknown] insulin detemir U-100 100 unit/mL (3 mL) subcutaneous pen 44 unit subcut QHS dm 05/06/22 [History Last Taken Unknown] insulin lispro 100 unit/mL subcutaneous pen 12 unit subcut 5X/DAY 05/06/22 [History Last Taken Unknown] gauze bandage 4 X 4 (Bordered Gauze) #14 ea 05/07/22 [Rx Last Taken Unknown] cephalexin 500 mg capsule 500 mg PO Q6 #40 CAPSULES 05/13/22 [Rx Last Taken Unknown] sulfamethoxazole 400 mg-trimethoprim 80 mg tablet (Bactrim) 1 tab PO BID #20 tabs 05/13/22 [Rx Last Taken Unknown] Allergy/AdvReac Type Severity Reaction Status Date / Time allopurinol AdvReac Vomiting Verified 05/06/22 16:17 Influenza Virus Vaccines AdvReac Vomiting Verified 05/06/22 16:17 pneumococcal vaccine AdvReac Vomiting Verified 05/06/22 16:17 Family History Mother Diabetes Heart disease CHF Father Heart disease [place]/CAD Myocardial infarction Surgical History H/O lithotripsy History of angioplasty of peripheral vessel (2016) History of angioplasty of peripheral vessel History of ankle surgery History of cardiac catheterization History of coronary artery stent placement (08/2016) History of coronary artery stent placement History of esophagogastroduodenoscopy (EGD) History of left heart catheterization (11/15/17) History of thyroid surgery Hx of lithotripsy Hx of surgery to heart and great vessels, presenting hazards to health Hx of surgical procedure Hx of thyroidectomy Hx of toe surgery Hx of toe surgery PEG (percutaneous endoscopic gastrostomy) status Social History household members: spouse housing: apartment Smoking Status: Never smoker alcohol intake: never substance use type: does not use ROS Constitutional Constitutional: Reports fever(s) Eyes Eyes: Denies blurry vision or change in vision ENT HEENT: Denies ear pain, headache(s), nasal congestion, nasal discharge or sore throat Cardiovascular Cardiovascular: Denies chest pain, edema or lightheadedness Respiratory/Chest Respiratory/Chest: Reports cough, dyspnea, productive cough and other Details: Occasional white sputum. Gastrointestinal Gastrointestinal: Denies abdominal pain, constipation, diarrhea, hematemesis, hematochezia, nausea or vomiting Genitourinary Genitourinary: Reports urinary frequency; Denies burning urination, difficulty urinating, dysuria or urinary incontinence Musculoskeletal Musculoskeletal: Denies arthralgias or myalgias Neurologic Neurologic: Denies confusion, dizziness, headache(s), numbness or tingling Psychiatric Psychiatric: Denies anxiety or depression Endocrine Endocrinology: Denies excessive sweating, polydipsia or polyuria Hematologic/Lymphatic Hematologic/Lymphatic: Denies easy bleeding Allergic/Immunologic Allergic/Immunologic: Denies hives Physical Exam Const alert and oriented x3 General Appearance: cooperative HEENT Head and Scalp: normal to inspection Nose: external nose normal External Ear: external ears normal Mouth: oral and palatal mucosa normal Teeth and [place]: poor dentition Throat: uvula midline Eyes PERRL and EOMs intact bilaterally Neck no lymphadenopathy and supple Resp normal respiratory effort, no retractions, no use of accessory muscles and clear to auscultation bilaterally Cardio regular rate, regular rhythm, S1 normal heart sound, S2 normal heart sound and no murmurs GI normal to inspection, nondistended, normoactive bowel sounds, soft to palpation and non-tender GI Narrative: PEG tube site appears to be healing well. [place] granulation tissue present with central area of purulence. No surrounding erythema, lymphangitic streaking, or drainage. Extremity Extremity Narrative: Radial pulses 2+ bilaterally. Pedal pulses and posterior tibial pulses 1+ with delayed capillary refill. Right Lower Extremity: foot and digits Positive for inspection (Previous amputation of all 5 toes.) Left Lower Extremity: foot and digits Positive for inspection (Plantar wound just distal of heel; 6 cm x 5 cm sloughing dry blister with 3 cm x 2 cm centrally located black eschar. No odor or drainage.) Skin Skin Narrative: 2 cm scab on left elbow and right knee. Neuro oriented x3 and moves all extremities Sensorium / Orientation: awake, alert and oriented to person Speech: speech normal Psych affect normal Results Lab / Micro Data Attestation: I reviewed the patient's lab results. Result Diagrams: 05/14/22 18:50 05/14/22 18:50 Assessment & Plan Assessment/Plan (1) Diabetic ulcer of left foot: (2) Acute febrile illness: PLAN: Plan Diabetic ulcer of left foot -Continue Unasyn and vancomycin for broad spectrum coverage of potential respiratory and wound pathogens including MRSA -Trend CBC with differential -Wound culture -Consult podiatry -Consult wound nurse -Elevate extremity Acute febrile illness -Possibly secondary to left foot wound as well as potential early aspiration pneumonia -Monitor left foot wound for progressive development -Patient is maintaining oxygen saturation, 98-100%, on baseline 4 L nasal cannula -Leukocytosis with left shift White blood cell count 12.3 -Urinalysis -Venous blood cultures x2 -Trend CBCD -Acetaminophen as needed for fever Leukocytosis with left shift -White blood cell count 12.3 with neutrophils at 84%, increased from May 13 ER visit with white blood cell count 9.9 and neutrophils at 65.5 -Trend CBCD Acute kidney injury -Creatinine 1.45 today, elevated from 1.42 on May 03 and 1.15 on March 23 -Possibly secondary to being dry from febrile illness -Give 1 L 0.9 saline at 75 mL/hr -Hold losartan and Lasix -Repeat BMP in a.m. Diabetes mellitus type II -Hbg A1c 8.0 11/18 -BGT ACHS-Insulin lispro sliding scale TIDAC -Continue insulin glargine -Continue carbohydrate controlled diet Peripheral vascular occlusive disease -Continue atorvastatin -Continue aspirin 81 mg Chronic obstructive pulmonary disorder -Continue home oxygen at 4 L nasal cannula -Albuterol aerosols as needed -Continue CPAP at night and during naps -Encourage incentive spirometer Hypertension -Continue carvedilol Diastolic heart failure -Continue spironolactone -Continue isosorbide mononitrate -Holding Lasix due to elevated creatinine History of aspiration pneumonia -Continue minced and moist diet -Speech therapy evaluation History of coronary artery stent placement -Continue Plavix History of anxiety and depression -Continue alprazolam -Continue buspirone -Continue fluoxetine Obesity -Encourage weight loss GI prophylaxis -Pantoprazole 20 mg p.o. daily DVT prophylaxis -Apply SCDs -Lovenox 40 mg twice daily CODE STATUS -Full code
[2022-05-14 22:23] VITALS: BP 133/93; PULSE 83; RESP 16; TEMP 36.4; O2SAT 98
[2022-05-14 22:38] VITALS: BP 105/53; PULSE 64; RESP 18; TEMP 36.8; O2SAT 100
--- NOTE | 2022-05-14 22:40 | RAD_ITS ---
STUDY: X-RAY - LEFT FOOT CLINICAL: Male, 62 years old. Wound. TECHNIQUE: 3 view(s) of the foot. COMPARISON: None. FINDINGS: There nails transfixing the medial malleolus. There is evidence of a healed fracture. Normal talus, calcaneus, and tarsal bones. Arthrosis of the visualized subtalar, talonavicular, calcaneocuboid, tarsal and tarsometatarsal articulations. Normal metatarsi. There is degenerative arthrosis of the metatarsophalangeal joint of the hallux . Normal tibial and fibular sesamoid bones. Normal interphalangeal joint of the great toe. Normal phalanges of the great toe. Normal second through fifth metatarsophalangeal joints. Normal interphalangeal joints and phalanges of the lesser toes. Vascular calcifications is seen in the soft tissues RAD/Foot min 3 Views IMPRESSION: 1. Degenerative changes of the foot without acute fracture or dislocation. There is no evidence of osteomyelitis. 2. Evidence of surgical fixation of a now healed medial mild fracture. Electronically Signed: Daniel Cazares DO at 23:13 EDT ,
[2022-05-14 22:50] VITALS: BMI 41.1
--- NOTE | 2022-05-14 23:07 | PCM.RX.CS ---
Consult Pharmacy has been consulted to manage selected antiobiotic: Vancomycin Type of Consult: New start Suspected Infection: Skin/Soft tissue Labs: Sodium 137 mmol/L (136-145) 05/14/22 18:50 Potassium 4.1 mmol/L (3.5-5.1) 05/14/22 18:50 Chloride 102 mmol/L (98-107) 05/14/22 18:50 Carbon Dioxide 30.0 mmol/L (21.0-32.0) 05/14/22 18:50 Anion Gap 5 (5-15) 05/14/22 18:50 BUN 22 mg/dL (7-18) H 05/14/22 18:50 Creatinine 1.45 mg/dL (0.70-1.30) H 05/14/22 18:50 Est GFR (MDRD) Af Amer 63 mL/min (>60) 05/14/22 18:50 Est GFR (MDRD) Non-Af 52 mL/min (>60) L 05/14/22 18:50 BUN/Creatinine Ratio 15.2 RATIO (10-20) 05/14/22 18:50 Glucose 251 mg/dL (74-106) H 05/14/22 18:50 Microbiology: Microbiology 05/14/22 18:50 Nasal Secretion SARS-CoV-2 & FLU Antigen (Rapid) - Final Weight used for dosin.4 kg Estimated Creatinine Clearance: 70.8 Goal Trough: 10-15 mcg/mL Pharmacy Plan for Drug Dosing: Pharmacy Service will continue to monitor and adjust dosing as required. Medications Vancomycin HCl 1,250 mg/ (Sodium Chloride) 275 mls @ 167 mls/hr IV Q12H ISHAN Discontinued Medications Vancomycin HCl 2,000 mg/ (Sodium Chloride) 540 mls @ 250 mls/hr IV X1 ONE Stop: 05/14/22 22:07 Last Admin: 05/14/22 21:13 Dose: 250 mls/hr Follow-Up Labs: Trough Vancomycin Labs to be done on [date and time ordered]: 05/16 @ [id number]
[2022-05-14 23:32] LABS: Bacteria 0 SEEN /hpf (None Seen); Mucous, Urine 0 SEEN /hpf (<or=2+); Red Blood Cells-Urine 0 SEEN /hpf (0-5)
[2022-05-14 23:51] LABS: Color, Urine Yellow (Yellow); Glucose, Dipstick 250 mg/dl (Normal); Ketone-Dipstick Negative (Negative); Leukocyte Esterase-Dipstick Negative /ul (Negative); Nitrite-Dipstick Negative (Negative); Occult Blood-Urine Negative /ul (Negative); Protein-Dipstick 15 mg/dl (Negative); Urine Bilirubin Dipstick Negative (Negative); Urine Clarity Clear (Clear); Urine Urobilinogen Normal (Normal)
[2022-05-14] MEDS: 0.9% Normal Saline 1,000 ML 75 ML IV (23:55)
[2022-05-14 23:56] LABS: Bedside Glucose 263 mg/dL (74-106)
[2022-05-15] VITALS (8 sets, daily range): BP systolic 91–203; BP diastolic 75–98; PULSE 55–72; RESP 18–20; TEMP 36.6–36.9; O2SAT 97–100
[2022-05-15] MEDS: traZODone 100 MG Tablet PO ×2 (00:03→21:55)
[2022-05-15] MEDS: Atorvastatin Calcium 80 MG Tablet PO ×2 (00:03→21:58)
[2022-05-15] MEDS: Carvedilol 12.5 MG Tablet PO ×3 (00:04→21:56)
[2022-05-15] MEDS: Pregabalin 75 MG Capsule PO ×3 (00:15→21:50)
[2022-05-15] MEDS: ALPRAZolam 0.5 MG Tablet PO ×3 (00:15→21:50)
[2022-05-15] MEDS: Insulin Glargine-YFGN 100 UNIT/ML Pen 44 UNIT SC ×2 (00:16→21:52)
[2022-05-15 00:36] LABS: Squamous Epithelial Cells - UA 0-5 SEEN /hpf (0-5); White Blood Cells 0-5 SEEN /hpf (0-5)
[2022-05-15] MEDS: Nystatin Powder 15gm Bottle 1 APPLIC TOPICAL ×3 (00:49→21:59)
[2022-05-15] MEDS: Menthol/Lanolin/Calamine/Znox 113 GM Tube 1 APPLIC TOPICAL ×3 (00:49→21:56)
--- NOTE | 2022-05-15 01:12 | CPS ---
Patient refuses PAP at this time
[2022-05-15 01:38] LABS: M R Staph aureus DNA By PCR Negative (Negative); Probe Check PASS; Specimen Processing Control PASS; Staph aureus DNA By PCR NEGATIVE (Negative)
--- NOTE | 2022-05-15 06:14 | CON.PCM_ITS ---
Assessment & Plan Assessment/Plan (1) Cellulitis of left lower limb: (2) Type 2 diabetes mellitus with diabetic polyneuropathy: (3) Ulcer of left foot, limited to breakdown of skin: (4) Blister (nonthermal), left foot, initial encounter: PLAN: Plan I reviewed and discussed his case today. It is noted he is very sedated and is unable to participate in a meaningful manner in the exam this morning. 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 He is afebrile during his hospital admission and his vital signs remained stable. He has a nonblanchable plantar lateral hindfoot ecchymosis that appears to have had a prior drained blister site. There is no distinct wound or abscess however there is erythema that extends to the medial hindfoot and this was marked with a marking pen. His diagnostic data was reviewed and his white blood cell count was 12.3, ESR 27, C-reactive protein 12.8. He does have a history of MRSA and it is noted that a culture was obtained by nursing staff to a dry none wound site to the plantar left heel. The final results are pending however it is noted this is taking from a superficial dry anatomic site. His x-ray was reviewed without soft tissue emphysema, foreign body, osseous destruction adjacent to the skin change site, or dislocation. His vessel calcifications are noted. He was started on Unasyn and vancomycin. The following work up and care recommendations were made: Dressing: Gauze and tape Wash: Soap and water Offload: To maintain a nonweightbearing status left Vascular: He has some palpable pulses in his feet and his feet are warm to touch. It is noted he had prior contralateral right foot amputation. His vascular calcification on x-ray exam are noted. Recommend updating his noninvasive vascular studies; ordered LEAS. Edema: This is mild to moderate and will be addressed pending his arterial disease status. Infection: To continue on broad-spectrum IV antibiotics at this time. His cellulitis area was marked and this will be monitored closely. I do not anticipate deep tissue exposure at this time. Pending his response to IV antibiotics and offloading during his hospital admission, additional imaging will be considered if lack of adequate improvement is noted. I do not anticipate surgical intervention at this time. This site appears to be consistent with a previously drained blister with adjacent skin peeling now with some superficial skin pressure changes. Blood cultures pending. Wound culture pending. Pain: Unable to evaluate this morning Host factors: His multiple comorbidities are noted including diabetes. His last A1c on file was from late 2020 and an updated test was ordered with results pending. He has a recent history of prior PEG tube placement with infections and this may be contributing to his clinical presentation as well. It is distinct that he also has a left foot infection. I recommend nutritional supplementation. Thank you for the consultation. Please do not hesitate to call if you have any questions. I will continue to follow him in house. Marley De Luna DPM, MERGED WITH [facility] [phone] Note: Pal[employer] speech recognition talent acquisition consultant software was used to create portions of this document. Sound-alike and misspelled words, as well as other talent acquisition consultant errors may be contained in the documentation. HPI Consult Data Date of Consult: 05/15/22 HPI Narrative Reason for Consultation: Left foot infection and wound concern HPI Narrative: REA HANNA, is a 62 M presented to the emergency room late on 04/29/2022 for reported cough, fever, and left foot infection. He reports the onset of his wound was on 05-13-2022. He is not able to participate in a meaningful manner this morning and is very sedated since he took his evening medication combination (alprazolam and trazadone) per nursing staff. He does deny any known injury or stepping on foreign body. He is not able to explain if he had actual drainage or wound. He was started on IV antibiotics. Per chart review he is a diabetic and has multiple comorbidities as well. [facility] Medical History (Updated 05/15/22 @ 06:[address] 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 eye Bronchiectasis with (acute) exacerbation Cardiology follow-up encounter Chronic cough Chronic respiratory failure with hypoxia COPD (chronic obstructive pulmonary disease) CPAP (continuous positive airway pressure) dependence Depression Diabetes Essential hypertension Gastric reflux GERD (gastroesophageal reflux disease) High cholesterol History of aspiration pneumonia History of echocardiogram History of edema History of gout History of heart attack History of non-ST elevation myocardial infarction (NSTEMI) (08/2016) History of pain when walking History of steroid therapy History of stress test Hyperglycemia due to type 2 diabetes mellitus Hypertension Insulin dependent diabetes mellitus Kidney stones Leg pain, right Leukocytosis Memory impairment Migraines Mood disorder Non-smoker On home oxygen therapy Peripheral vascular occlusive disease Pneumonia Prostate disease Pulmonary nodule, left Right ankle pain Shortness of breath on exertion Silent aspiration Sleep apnea Tremor Type 2 diabetes mellitus Vision loss of left eye Wears glasses Wound of left lower extremity Home Medications acetaminophen 500 mg tablet 1,000 mg PO QHS PRN PRN Pain 1-10 Or Fever 02/11/21 [History Last Taken 05/14/22 18:50 1000] aspirin 81 mg tablet,delayed release (Adult Aspirin Regimen) 81 mg PO DAILY heart health 11/05/21 [History Last Taken 05/14/22 10:00] spironolactone 25 mg tablet 40 mg PO DAILY diuretic 11/08/21 [History Last Taken Unknown] loratadine 10 mg tablet (Allergy Relief (loratadine)) 10 mg G-tube DAILY #0 tabs 11/14/21 [Rx Last Taken Unknown] peg [id number] 1 %-0.2 %-0.2 % eye drops (Artificial Tears ([id number])) 2 drp EACH EYE Q1H PRN DRY EYES #0 mL 11/14/21 [Rx Last Taken Unknown] nitroglycerin 0.4 mg sublingual tablet 0.4 mg sublingual Q5M PRN Chest Pain #30 tabs 11/25/21 [Rx Last Taken Unknown] gauze bandage 4 X 4 sponge (Curity Gauze) #1 ea 11/27/21 [Rx Last Taken Unknown] atorvastatin 80 mg tablet 80 mg PO QHS cholesterol #90 tabs 01/09/22 [Rx Last Taken 05/13/22 23:00] finasteride 5 mg tablet 5 mg PO DAILY prostate #90 tabs 01/09/22 [Rx Last Taken Unknown] furosemide 40 mg tablet 40 mg PO DAILY fluid #90 tabs 01/09/22 [Rx Last Taken Unknown] insulin lispro 100 unit/mL subcutaneous pen 1 sliding scale dose subcut .5 times daily dm 01/27/22 [History Last Taken Unknown] albuterol sulfate 90 mcg/actuation aerosol inhaler 2 puff inhalation Q4H PRN shortness of breath or wheezing #8.5 grams 02/04/22 [Rx Last Taken Unknown] pantoprazole 20 mg tablet,delayed release 20 mg PO DAILY gerd 02/04/22 [History Last Taken Unknown] carvedilol 12.5 mg tablet 12.5 mg PO BID heart #180 tabs 02/05/22 [Rx Last Taken Unknown] nut.tx impaired digestive fxn-fiber 0.08 gram-1.2 kcal/mL oral liquid (Vital AF 1.2 Will) 90 ml feeding tube TID feeding 02/22/22 [History Last Taken Unknown] buspirone 7.5 mg tablet 7.5 mg PO TID mood #90 tabs 03/09/22 [Rx Last Taken 05/14/22 10:00] fluoxetine 20 mg capsule 20 mg PO DAILY depression #90 caps 03/09/22 [Rx Last Taken Unknown] fluoxetine 40 mg capsule 40 mg PO DAILY depression #90 caps 03/09/22 [Rx Last Taken Unknown] syringe, ENFit, non-sterile 60 mL (Piston Syringe with ENFit) #30 ea 03/20/22 [Rx Last Taken Unknown] alprazolam 0.5 mg tablet 0.5 mg PO BID anxiety 03/21/22 [History Last Taken 05/14/22 10:00] amlodipine 5 mg tablet 5 mg G-tube DAILY bp 03/21/22 [History Last Taken 05/14/22 10:00] losartan 50 mg tablet 50 mg PO DAILY bp 03/21/22 [History Last Taken Unknown] clopidogrel 75 mg tablet 75 mg PO DAILY blood thinner #90 tabs 03/30/22 [Rx Last Taken Unknown] isosorbide mononitrate 30 mg tablet,extended release 24 hr 30 mg PO DAILY heart #90 tabs 03/30/22 [Rx Last Taken Unknown] pregabalin 75 mg capsule (Lyrica) 75 mg PO BID nerve pain #60 caps 03/30/22 [Rx Last Taken Unknown] trazodone 100 mg tablet 100 mg G-tube QHS #90 tabs 03/30/22 [Rx Last Taken Unkn own] low-sodium #1 ea 04/23/22 [Rx Last Taken Unknown] amoxicillin 400 mg-potassium clavulanate 57 mg/5 mL oral suspension 10 ml PO BID 5 days #100 mL 05/03/22 [Rx Last Taken Unknown] insulin detemir U-100 100 unit/mL (3 mL) subcutaneous pen 44 unit subcut QHS dm 05/06/22 [History Last Taken Unknown] insulin lispro 100 unit/mL subcutaneous pen 12 unit subcut 5X/DAY 05/06/22 [History Last Taken Unknown] gauze bandage 4 X 4 (Bordered Gauze) #14 ea 05/07/22 [Rx Last Taken Unknown] cephalexin 500 mg capsule 500 mg PO Q6 #40 CAPSULES 05/13/22 [Rx Last Taken Unknown] sulfamethoxazole 400 mg-trimethoprim 80 mg tablet (Bactrim) 1 tab PO BID #20 tabs 05/13/22 [Rx Last Taken Unknown] Allergy/AdvReac Type Severity Reaction Status Date / Time allopurinol AdvReac Vomiting Verified 05/06/22 16:17 Influenza Virus Vaccines AdvReac Vomiting Verified 05/06/22 16:17 pneumococcal vaccine AdvReac Vomiting Verified 05/06/22 16:17 Family History Mother Diabetes Heart disease CHF Father Heart disease [place]/CAD Myocardial infarction Surgical History H/O lithotripsy History of angioplasty of peripheral vessel (2016) History of angioplasty of peripheral vessel History of ankle surgery History of cardiac catheterization History of coronary artery stent placement (08/2016) History of coronary artery stent placement History of esophagogastroduodenoscopy (EGD) History of left heart catheterization (11/15/17) History of thyroid surgery Hx of lithotripsy Hx of surgery to heart and great vessels, presenting hazards to health Hx of surgical procedure Hx of thyroidectomy Hx of toe surgery Hx of toe surgery PEG (percutaneous endoscopic gastrostomy) status Social History household members: spouse housing: apartment Smoking Status: Never smoker alcohol intake: never substance use type: does not use Physical Exam Const no apparent distress General Appearance: cooperative and lethargic HEENT normocephalic Extremity Extremity Narrative: No calf tenderness 2/4 DP pulse bilateral and edema to ankle level with nonpalpable PT pulses bilateral Muscle wasting noted Right transmetatarsal amputation healed status Left no bogginess or fluctuance on palpation or palpable abscess or mass No pain response with palpation to skin change site to the plantar lateral heel, left Compartments remain soft to palpate to the left lower extremity General Extremity: edema and no tenderness to palpation of joints or extremities; Negative for cyanosis Skin Skin Narrative: Left: No purulence, no odor. There is evidence of a prior blister/bulla now with peripheral skin peeling. There is not a distinct skin discontinuity however there is nonblanchable ecchymosis with surrounding erythema (faint and this is marked with a marker) that extends along the medial heel just distal to the medial malleoli. Upon removal of adjacent skin peeling there is a small area of skin discontinuity with superficial granular base to the lateral rim without active drainage. There is no eschar or tissue that would be appropriate for debridement. No maceration or deep tissue exposure. His skin in general is hairless and atrophic. His toes are warm to touch Right: No skin lesions, ulcer, infection, maceration. His skin in general is hairless and atrophic General Skin Exam: Negative for erythema Neuro Neuro Narrative: lack of normal epicritic sensation via light touch is consistent with neuropathy status Psych cooperative and affect normal Lab / Micro Data Result Diagrams: 05/15/22 05:38 05/15/22 05:38 Labs: Laboratory Results - last 24 hr 05/14/22 18:50: WBC 12.3 H, RBC 4.37 L, Hgb 12.4 L, Hct 38.4 L, MCV 87.9, MCH 28.4, MCHC 32.3, RDW Std Deviation 42.7, RDW Coeff of [place] 13.2, Plt Count 194, MPV 10.8, Immature Gran % (Auto) 0.300, Neut % (Auto) 84.1 H, Lymph % (Auto) 5.3 L, [place] % (Auto) 7.5, Eos % (Auto) 2.3, Baso % (Auto) 0.5, Absolute Neuts (auto) 10.4 H, Absolute Lymphs (auto) 0.65 L, Nucleated RBC % 0 05/14/22 18:50: PT 14.8, INR 1.2, APTT 27.7 05/14/22 18:50: Sodium 137, Potassium 4.1, Chloride 102, Carbon Dioxide 30.0, Anion Gap 5, BUN 22 H, Creatinine 1.45 H, Estim Creat Clear Calc 53.84, Est GFR (MDRD) Af Amer 63, Est GFR (MDRD) Non-Af 52 L, BUN/Creatinine Ratio 15.2, Glucose 251 H, Calcium 8.7, Total Bilirubin 0.40, AST 18, ALT 15 L, Alkaline Phosphatase 109, Total Protein 7.3, Albumin 3.1 L, Globulin 4.2, Albumin/Globulin Ratio 0.7 L 05/14/22 18:50: Lactic Acid 1.6 05/14/22 18:50: ESR 27 H 05/14/22 18:50: C-React Prot Ext Range 12.80 H 05/14/22 23:12: Urine Color Yellow, Urine Clarity Clear, Urine pH 5.0, Ur Specific [place] 1.020, Urine Protein 15 H, Urine Glucose (UA) 250 H, Urine Ketones Negative, Urine Occult Blood Negative, Urine Nitrite Negative, Urine Bilirubin Negative, Urine Urobilinogen Normal, Ur Leukocyte Esterase Negative, Urine RBC 0 SEEN, Urine WBC 0-5 SEEN, Ur Squamous Epith Cells 0-5 SEEN, Urine Bacteria 0 SEEN, Urine Mucus 0 SEEN 05/14/22 23:20: S.aureus Protein A PCR NEGATIVE, MRSA (PCR) Negative 05/14/22 23:28: POC Glucose 263 H Micro: Microbiology 05/14/22 18:50 Nasal Secretion SARS-CoV-2 & FLU Antigen (Rapid) - Final Radiology Impression Chest X-Ray 05/14/22 19:13 IMPRESSION: Persistent elevated right hemidiaphragm and mild basilar atelectasis or infiltrate. Clearing of prior left lower lobe consolidation Electronically Signed: Steven Mcgee MD at 19:29 EDT , Foot X-Ray 05/14/22 22:40 IMPRESSION: 1. Degenerative changes of the foot without acute fracture or dislocation. There is no evidence of osteomyelitis. 2. Evidence of surgical fixation of a now healed medial mild fracture. Electronically Signed: Daniel Cazares DO at 23:13 EDT ,
[2022-05-15 06:29] LABS: Absolute Lymphocyte Count 1.02 X10^3/uL (0.83-4.51); Absolute Neutrophil Count 5.5 X10^3/uL (2.0-7.7); Basophil# 0.05 X10^3/uL; Basophil% 0.7 % (0-1); Eosinophil# 0.26 X10^3/uL; Eosinophils% 3.4 % (0-5); Hematocrit 34.8 % (40-54); Lymphocyte # 1.02 X10^3/ul (0.83-4.51); Lymphocyte % 13.5 % (19-41); Mean Corp Hgb Conc 31.6 g/dL (32-36); Mean Corpuscular Volume 88.5 fL (80-94); Mean Platelet Vol. 10.9 fl (6.2-12.0); Monocyte# 0.74 X10^3/uL; Monocyte% 9.8 % (0-10); NRBC Flagged by Analyzer 0 % (0-5); Neutrophil # 5.48 X10^3/uL (2.7-7.7); Neutrophil % 72.2 % (47-70); Platelet Count 184 K/mm3 (150-450); RBC Distribution Width CV 13.3 % (11.6-14.6); RBC Distribution Width SD 43.3 fl (35.1-43.9); Red Blood Count 3.93 M/mm3 (4.6-6.2); White Blood Count 7.6 K/mm3 (4.4-11.0)
[2022-05-15] MEDS: Insulin Lispro 100 UNIT/ML INSULN.PEN SC ×3 (06:42→17:04)
[2022-05-15] MEDS: busPIRone 15 MG TABLET 7.5 MG PO ×3 (06:44→21:55)
[2022-05-15 06:51] LABS: Bedside Glucose 167 mg/dL (74-106)
--- NOTE | 2022-05-15 06:53 | ART_ITS ---
Reason For Study: Ulcer Left Segmental Pressures The left dorsalis pedis waveforms are biphasic. The left posterior tibial artery waveforms are biphasic. Left posterior tibial artery = >254mmHg. Left dorsalis pedis artery = >254mmHg. Left digit = 31 mmHg. Right Segmental Pressures The right dorsalis pedis waveforms are biphasic. The right posterior tibial artery waveforms are biphasic. Right brachial= 139mmHg. Right posterior tibial artery = >254mmHg. Right dorsalis pedis artery = >254mmHg. Indices The right ankle brachial index by the dorsalis pedis is N/C. The right ankle brachial index by the posterior tibial artery is N/C. The left ankle brachial index by the dorsalis pedis is N/C. The left ankle brachial index by the posterior tibial artery is N/C. The left digital-brachial index is 0.22. VL/Lower Ext Art Exam w/o Exercis Interpretation Summary Biphasic Doppler waveforms are noted at ankle level bilaterally. Pulse-volume r ecordings appear satisfactory at all levels bilaterally, though not assessed at digital level on the right. Resting ankle-brachial indices could not be determined on either side due to the non-co mpressibility of the vasculature at ankle level bilaterally. The right digital-brachial index was no t determined. The left digital-brachial index is severely diminished. There is evidence of diffuse arterial calcification bilaterally. The non-compre ssibilty of the vasculature multisegmentally and bilaterally limits diagnostic interpretation. However, the available data suggests arterial flow to be relatively normal at ankle level bi laterally. Assessment is incomplete at digital level on the right. There is evidence of severe arteri al occlusive disease at digital level on the left. Ordering Physician: Marley De Luna Referring Physician: Doretha Brown Performed By: Wallace Johnson
[2022-05-15 07:03] LABS: ALB/GLOB Ratio 0.8 RATIO (0.9-2.4); AST(SGOT) 12 U/L (15-37); Alanine Aminotransfer ALT/SGPT 12 U/L (16-61); Albumin, Serum 2.8 g/dL (3.2-5.0); Alkaline Phosphatase 99 U/L (45-117); Anion Gap 4 (5-15); BUN 24 mg/dL (7-18); BUN/Creat Ratio 17.4 RATIO (10-20); Calcium,Total 8.5 mg/dL (8.5-10.1); Chloride 106 mmol/L (98-107); Creatinine, Serum 1.38 mg/dL (0.70-1.30); EST Glomerular Filtration Rate 55 mL/min (>60); Est Glom Filt Rate - Afr Amer 67 mL/min (>60); Estimated Creatinine Clearance 56.57 ml/min; Globulin 3.7 g/dL (2.2-4.2); Glucose 175 mg/dL (74-106); Magnesium 2.1 mg/dL (1.6-2.6); Phosphorus 3.5 mg/dL (2.5-4.9); Potassium 3.6 mmol/L (3.5-5.1); Protein, Total 6.5 g/dL (6.4-8.2); Sodium Level 139 mmol/L (136-145)
--- NOTE | 2022-05-15 09:11 | NURSING ---
message left for PCPs office requesting home med list
[2022-05-15] MEDS: Enoxaparin 40 MG/0.4 ML Syringe SC ×2 (09:26→21:50)
[2022-05-15] MEDS: Isosorbide Mononitrate 30 MG Tablet PO (09:27)
[2022-05-15] MEDS: amLODIPine 5 MG Tablet PO (09:27)
[2022-05-15] MEDS: Finasteride 5 MG Tablet PO (09:27)
[2022-05-15] MEDS: Fluoxetine HCl 40 MG CAPSULE PO (09:27)
[2022-05-15] MEDS: Aspirin E.C. 81 MG Tablet PO (09:27)
[2022-05-15] MEDS: Loratadine 10 MG Tablet PO (09:27)
[2022-05-15] MEDS: FLUoxetine 20 MG Capsule PO (09:27)
[2022-05-15] MEDS: Pantoprazole Sodium 20 MG Tablet PO (09:27)
[2022-05-15] MEDS: Clopidogrel Bisulfate 75 MG Tablet PO (09:27)
--- NOTE | 2022-05-15 10:00 | CASEMGMT ---
Addendum entered by Adriana Fernando 05/15/22 10:50: Received email from [facility], they are current with patient and aware that he is hospitalized. Addendum entered by Adriana Fernando 05/15/22 10:42: Received tc back from Jessica at [facility], they are able to accept pt on Wednesday. Original Note: ALICE PHOENIX Assessment: Face to Face with pt for initial transition planning/care coordination assessment. ALICE PHOENIX introduced self and role at [facility], pt voices understanding and consents to assessment. Pt is A/O x4 and answers all questions appropriately at this time. Pt sitting up in bed with sig other at bedside. Care providers, pharmacy, and demographics verified/updated. Admitting Dx: L diabetic foot infection PCP:Kevin Specialists:Friend, GI; Yannick, pulm; DAVIN, cardio; Trae, nephro; pt has an upcoming appt with , neuro Preferred Pharmacy: [facility] Insurance: My Care [facility] Plan Prescription Benefit: yes LW/HPOA: Pt has a LW/DPOA on file at [facility]. His DPOA is his sig other She Gipson. LNOK: She Gipson, sig other Living Arrangements: Pt lives with sig other in a ground level apt with no steps to enter. Pt reports he needs assist with ADL's and IADL's, sig other provides. Pt no longer has a peg tube. States it has come out 3x. There is no plan to replace. Transportation: Pt sig other transports him to medical appts. Pt denies concerns with transportation. DME/HHC/SNF: Pt has O2 through [employer]. Pt sig other has portable tank to go home on but states that they need more tanks as well as NC. TC to [facility],spoke with [facility], pt O2 script is 2L at rest, 3L with exertion. He is aware that pt needs NC and more portable tanks and states he will order these. Pt has a shower chair, rollator, walker and electric scooter as well as a cane. Pt has had [facility] in the past and denies SNF stays. Pt just dc'd from [facility] 3 days ago. TC to Jessica at [facility] to confirm. Pt reports he has [place] aides that comes Mon-Fri 11-2. Pt is not sure if he has palliative care currently. Email to palliative to verify, awaiting response. Pt sig other states if there is wound care she is able to perform but would like to have C as well. Pt is reluctant but agreeable to this. TC to [facility] Jessica, referral made. Pt also has [facility], notified SW. Pt states no concerns with going home at time of dc. Pt states no further concerns/needs. CM to follow. Advised pt to ask CM if any further question/concerns/needs arise, voices understanding. Pt Goal: Home with [facility] Plan: Home with [facility]
--- NOTE | 2022-05-15 11:24 | CASEMGMT ---
Green sheet on chart in case patient has increased oxygen needs. Current order is for 2L at rest, 3L with exertion. Green sheet also for HHC.
--- NOTE | 2022-05-15 11:32 | CASEMGMT ---
Social Work Pt has services through [facility]. Phone call to Diana at [facility] and updated on hospital admission. Pt counter caser is Sylvia Green [phone]. Pt receives 7 pureed meals a week through [facility] and has home health aids 15 hours a week through [facility] (M-F [id number]). [facility] to be updated when pt is discharged. MINISTERIO Gallagher
--- NOTE | 2022-05-15 11:37 | WOUNDNOTE ---
wound photo: left foot
[2022-05-15 12:25] LABS: Bedside Glucose 174 mg/dL (74-106)
--- NOTE | 2022-05-15 14:58 | PN.HOSP_ITS ---
Subjective Subjective Patient seen and examined. He had no active complaints and had an uneventful night. Review of systems otherwise negative. He has remained hemodynamically stable. Objective Data Objective Data Vital Signs: Vital Signs Temp Pulse Resp BP Pulse Ox 98.4 F 55 L 18 150/83 H 98 05/15/22 14:25 05/15/22 14:25 05/15/22 14:25 05/15/22 14:25 05/15/22 14:25 Oxygen Flow Rate (L/min) 4 Oxygen Delivery Method Nasal Cannula Weight: 287 lb 7.724 oz Body Mass Index (BMI) 41.1 Intake & Output: Intake and Output for Last 24 Hours 05/13/22 05/14/22 05/15/22 23:59 23:59 23:59 Intake Total 652 / 652 800.75 / 800.75 Output Total 650 / 650 Balance 652 / 652 150.75 / 150.75 Lab / Micro Data Result Diagrams: 05/15/22 05:38 05/15/22 05:38 Labs: Laboratory Results - last 24 hr 05/14/22 18:50: WBC 12.3 H, RBC 4.37 L, Hgb 12.4 L, Hct 38.4 L, MCV 87.9, MCH 28.4, MCHC 32.3, RDW Std Deviation 42.7, RDW Coeff of James 13.2, Plt Count 194, MPV 10.8, Immature Gran % (Auto) 0.300, Neut % (Auto) 84.1 H, Lymph % (Auto) 5.3 L, [place] % (Auto) 7.5, Eos % (Auto) 2.3, Baso % (Auto) 0.5, Absolute Neuts (auto) 10.4 H, Absolute Lymphs (auto) 0.65 L, Nucleated RBC % 0 05/14/22 18:50: PT 14.8, INR 1.2, APTT 27.7 05/14/22 18:50: Sodium 137, Potassium 4.1, Chloride 102, Carbon Dioxide 30.0, Anion Gap 5, BUN 22 H, Creatinine 1.45 H, Estim Creat Clear Calc 53.84, Est GFR (MDRD) Af Amer 63, Est GFR (MDRD) Non-Af 52 L, BUN/Creatinine Ratio 15.2, Glucose 251 H, Calcium 8.7, Total Bilirubin 0.40, AST 18, ALT 15 L, Alkaline Phosphatase 109, Total Protein 7.3, Albumin 3.1 L, Globulin 4.2, Albumin/Globulin Ratio 0.7 L 05/14/22 18:50: Lactic Acid 1.6 05/14/22 18:50: ESR 27 H 05/14/22 18:50: C-React Prot Ext Range 12.80 H 05/14/22 23:12: Urine Color Yellow, Urine Clarity Clear, Urine pH 5.0, Ur Spec ific [place] 1.020, Urine Protein 15 H, Urine Glucose (UA) 250 H, Urine Ketones Negative, Urine Occult Blood Negative, Urine Nitrite Negative, Urine Bilirubin Negative, Urine Urobilinogen Normal, Ur Leukocyte Esterase Negative, Urine RBC 0 SEEN, Urine WBC 0-5 SEEN, Ur Squamous Epith Cells 0-5 SEEN, Urine Bacteria 0 SEEN, Urine Mucus 0 SEEN 05/14/22 23:20: S.aureus Protein A PCR NEGATIVE, MRSA (PCR) Negative 05/14/22 23:28: POC Glucose 263 H 05/15/22 05:38: WBC 7.6, RBC 3.93 L, Hgb 11.0 L, Hct 34.8 L, MCV 88.5, MCH 28.0, MCHC 31.6 L, RDW Std Deviation 43.3, RDW Coeff of James 13.3, Plt Count 184, MPV 10.9, Immature Gran % (Auto) 0.400, Neut % (Auto) 72.2 H, Lymph % (Auto) 13.5 L, [place] % (Auto) 9.8, Eos % (Auto) 3.4, Baso % (Auto) 0.7, Absolute Neuts (auto) 5.5, Absolute Lymphs (auto) 1.02, Nucleated RBC % 0 05/15/22 05:38: Sodium 139, Potassium 3.6, Chloride 106, Carbon Dioxide 29.0, Anion Gap 4 L, BUN 24 H, Creatinine 1.38 H, Estim Creat Clear Calc 56.57, Est GFR (MDRD) Af Amer 67, Est GFR (MDRD) Non-Af 55 L, BUN/Creatinine Ratio 17.4, Glucose 175 H, Calcium 8.5, Phosphorus 3.5, Magnesium 2.1, Total Bilirubin 0.50, AST 12 L, ALT 12 L, Alkaline Phosphatase 99, Total Protein 6.5, Albumin 2.8 L, Globulin 3.7, Albumin/Globulin Ratio 0.8 L 05/15/22 05:38: Hemoglobin A1c 8.0 H 05/15/22 06:38: POC Glucose 167 H 05/15/22 11:29: POC Glucose 174 H Micro: Microbiology 05/14/22 23:20 Wound - Heel Gram Stain - Final 05/14/22 18:50 Nasal Secretion SARS-CoV-2 & FLU Antigen (Rapid) - Final Radiography Diagnostic Testing: Radiology Impression Chest X-Ray 05/14/22 19:13 IMPRESSION: Persistent elevated right hemidiaphragm and mild basilar atelectasis or infiltrate. Clearing of prior left lower lobe consolidation Electronically Signed: Steven Mcgee MD at 19:29 EDT , Foot X-Ray 05/14/22 22:40 IMPRESSION: 1. Degenerative changes of the foot without acute fracture or dislocation. There is no evidence of osteomyelitis. 2. Evidence of surgical fixation of a now healed medial mild fracture. Electronically Signed: Daniel Cazares DO at 23:13 EDT , Physical Exam Const alert, oriented x3 and no apparent distress HEENT head/scalp atraumatic, moist oral mucous membranes and oropharynx normal Eyes PERRL, EOMs intact bilaterally and conjunctivae normal Neck no lymphadenopathy and supple Resp normal respiratory effort, no retractions, no use of accessory muscles and clear to auscultation bilaterally Cardio regular rate, regular rhythm, S1 normal heart sound, S2 normal heart sound and no murmurs GI normal to inspection, nondistended, normoactive bowel sounds, soft to palpation, non-tender and non-distended Extremity normal to inspection and full ROM Skin Skin Narrative: superficial ulceration on sole of left foot. Intact dressing in place Neuro oriented x3, CN's II-XII intact bilaterally and moves all extremities Sensorium / Orientation: awake and alert Motor Exam: strength 5/5 throughout Psych affect normal Assessment & Plan Assessment/Plan (1) Ulcer of left foot, limited to breakdown of skin: (2) Cellulitis of left lower limb: PLAN: Plan Diabetic foot ulcer and cellulitis * on IV vancomycin and unasyn * podiatry on board. had bedside debridement today * ulcer seems to be superficial * wound care on board * blood cultures pending * wbc trending downwards * #CELESTE: * CR was 1.45 on admission; baseline is ~ 1.1 * . Being gently hydrated with IVF. Lasix and losartan * TYpe 2 diabetes mellitus * ISS. Accuchecks ACHS. * on lantus and ISS. * A1C is 8 (05/05/22) * #History of aspiration: speech therapy on board. On modified diet. #Chronic respiratory failure due to COPD * on 4L of oxygen. breahting treatments with bronchodilators * CPAP qhs * #Hypertension: on carvedilol #HFpEF: on imdur and spironolactone. Lasix on hold due to increased Cr #CAD s/p stent: on plavix. #ANxiety and depression; on xanax, buspirone and fluoxetine. DVT prophylaxis; lovenox Charges/Coding Visit Charges Inpatient E&M: 67490 Subs Hosp L2
[2022-05-15 16:35] LABS: Bedside Glucose 233 mg/dL (74-106)
[2022-05-15] MEDS: Juven (unflavored) Packet 1 PACKET PO (17:04)
[2022-05-15] MEDS: hydrALAZINE 20 MG/ML Vial 10 MG IV (22:20)
[2022-05-16 00:16] LABS: Bedside Glucose 243 mg/dL (74-106)
[2022-05-16 05:00] VITALS: BP 154/94; PULSE 56; RESP 18; TEMP 36.6; O2SAT 100
[2022-05-16] MEDS: busPIRone 15 MG TABLET 7.5 MG PO ×3 (06:35→22:07)
[2022-05-16 06:46] LABS: Bedside Glucose 126 mg/dL (74-106)
[2022-05-16 07:38] VITALS: O2SAT 95
--- NOTE | 2022-05-16 08:03 | PN_ITS ---
Subjective Subjective Patient seen and examined for left foot infection follow-up this morning. He denies pain, fever, chill, nausea, vomiting. He has been trying to keep weight off of the site. Objective Data Objective Data Vital Signs: Vital Signs Temp Pulse Resp BP Pulse Ox 97.9 F 56 L 18 154/94 H 95 05/16/22 05:00 05/16/22 05:00 05/16/22 05:00 05/16/22 05:00 05/16/22 07:38 Oxygen Flow Rate (L/min) 2 Oxygen Delivery Method Nasal Cannula Weight: 130.4 kg Body Mass Index (BMI) 41.1 Intake & Output: Intake and Output for Last 24 Hours 05/14/22 05/15/22 05/16/22 23:59 23:59 23:59 Intake Total 652 / 652 2412.00 / 2412.00 50 / 50 Output Total 1000 / 1000 550 / 550 Balance 652 / 652 1412.00 / 1412.00 -500 / -500 Lab / Micro Data Result Diagrams: 05/15/22 05:38 05/15/22 05:38 Labs: Laboratory Results - last 24 hr 05/15/22 11:29: POC Glucose 174 H 05/15/22 16:25: POC Glucose 233 H 05/15/22 21:47: POC Glucose 243 H 05/16/22 06:34: POC Glucose 126 H Micro: Microbiology 05/14/22 23:20 Wound - Heel Gram Stain - Final 05/14/22 18:50 Nasal Secretion SARS-CoV-2 & FLU Antigen (Rapid) - Final Physical Exam Const no apparent distress General Appearance: cooperative HEENT normocephalic Extremity Extremity Narrative: No calf tenderness left Left no bogginess or fluctuance on palpation or palpable abscess or mass No pain response with palpation to skin change site to the plantar lateral heel, left Compartments remain soft to palpate to the left lower extremity General Extremity: edema and no tenderness to palpation of joints or extremities; Negative for cyanosis Skin Skin Narrative: Left heel prior blister with superficial skin peeling and remaining dried skin with some hematogenous dried drainage. The adjacent erythema has resolved in intensity and location. There is no active drainage or streaking. His skin is hairless and atrophic. There is no maceration or deep tissue exposure or necrosis Neuro Neuro Narrative: lack of normal epicritic sensation via light touch is consistent with neuropathy status Psych cooperative and affect normal Assessment & Plan Assessment/Plan (1) Cellulitis of left lower limb: (2) Type 2 diabetes mellitus with diabetic polyneuropathy: (3) Ulcer of left foot, limited to breakdown of skin: (4) Blister (nonthermal), left foot, initial encounter: PLAN: Plan I reviewed and discussed his case today. He is afebrile and his white blood cell count has trended down to 7.6. His prior ESR 27, C-reactive protein 12.8. He continues on Zosyn and vancomycin. Resolution of erythema is noted and his foot appears stable. The following work up and care recommendations were made: Dressing: Gauze and tape. This was reapplied this morning Offload: To maintain a nonweightbearing status left heel. It is okay to stabilize with forefoot touch with surgical shoe in place Vascular: His preliminary noninvasive vascular study was reviewed with abnormal findings. He has noncompressible vessels and has a toe brachial index of 0.22 and 9 calculated EKTA. This is significant with peripheral vascular disease. He does not appear to have critical limb ischemia or need for any urgent intervention however this is impaired. I recommend an outpatient vascular referral. Edema: This is mild to moderate. To gently elevate. Infection: To continue on broad-spectrum IV antibiotics at this time. His cellulitis area was marked and is clinically resolved today. His infection markers from a lab standpoint are trending towards improvement. His wound cult ure was MRSA negative however it is noted this was taken from a superficial dry site. Blood cultures pending without growth so far. Pain: Controlled Host factors: His multiple comorbidities are noted including diabetes which may compromise his healing. His last A1c is now 8.2%. It is okay for this patient to follow-up in outpatient setting. Continue medical management per primary team is noted and appreciated. Please do not hesitate to call if you have any questions. I will continue to follow him in house. Marley De Luna DPM, [facility] [phone] Note: [employer] speech recognition cold rolling coordinator software was used to create portions of this document. Sound-alike and misspelled words, as well as other cold rolling coordinator errors may be contained in the documentation.
[2022-05-16 08:10] VITALS: BP 148/81; PULSE 58; RESP 18; TEMP 36.7; O2SAT 100
[2022-05-16] MEDS: Juven (unflavored) Packet 1 PACKET PO ×2 (08:23→17:43)
[2022-05-16 08:45] LABS: Absolute Lymphocyte Count 1.45 X10^3/uL (0.83-4.51); Absolute Neutrophil Count 4.7 X10^3/uL (2.0-7.7); Basophil# 0.04 X10^3/uL; Basophil% 0.5 % (0-1); Eosinophil# 0.44 X10^3/uL; Eosinophils% 5.9 % (0-5); Hematocrit 36.8 % (40-54); Hemoglobin 11.6 g/dL (13.0-16.5); Lymphocyte # 1.45 X10^3/ul (0.83-4.51); Lymphocyte % 19.4 % (19-41); Mean Corp Hgb Conc 31.5 g/dL (32-36); Mean Corpuscular Hgb 28.2 pg (27.0-32.0); Mean Corpuscular Volume 89.3 fL (80-94); Mean Platelet Vol. 10.6 fl (6.2-12.0); Monocyte# 0.83 X10^3/uL; Monocyte% 11.1 % (0-10); NRBC Flagged by Analyzer 0 % (0-5); Neutrophil # 4.69 X10^3/uL (2.7-7.7); Neutrophil % 62.8 % (47-70); Platelet Count 189 K/mm3 (150-450); RBC Distribution Width CV 13.3 % (11.6-14.6); RBC Distribution Width SD 43.9 fl (35.1-43.9); Red Blood Count 4.12 M/mm3 (4.6-6.2); White Blood Count 7.5 K/mm3 (4.4-11.0)
[2022-05-16 09:15] LABS: Anion Gap 3 (5-15); BUN 19 mg/dL (7-18); BUN/Creat Ratio 18.6 RATIO (10-20); Calcium,Total 8.8 mg/dL (8.5-10.1); Chloride 108 mmol/L (98-107); Creatinine, Serum 1.02 mg/dL (0.70-1.30); EST Glomerular Filtration Rate 78 mL/min (>60); Est Glom Filt Rate - Afr Amer 95 mL/min (>60); Estimated Creatinine Clearance 76.54 ml/min; Glucose 109 mg/dL (74-106); Potassium 4.2 mmol/L (3.5-5.1); Sodium Level 142 mmol/L (136-145)
[2022-05-16 09:17] LABS: Vancomycin, Trough Level 19.1 ug/mL (5.0-15.0)
--- NOTE | 2022-05-16 09:46 | PN.HOSP_ITS ---
Subjective Subjective Patient seen and examined. He feels well and has no active complaints today. He had an uneventful night. He is asking about being discharged home. Review of systems is otherwise negative. Objective Data Objective Data Vital Signs: Vital Signs Temp Pulse Resp BP Pulse Ox 98.1 F 58 L 18 148/81 H 100 05/16/22 08:10 05/16/22 08:10 05/16/22 08:10 05/16/22 08:10 05/16/22 08:10 Oxygen Flow Rate (L/min) 2 Oxygen Delivery Method Nasal Cannula Weight: 287 lb 7.724 oz Body Mass Index (BMI) 41.1 Intake & Output: Intake and Output for Last 24 Hours 05/14/22 05/15/22 05/16/22 23:59 23:59 23:59 Intake Total 652 / 652 2412.00 / 2412.00 50 / 50 Output Total 1000 / 1000 550 / 550 Balance 652 / 652 1412.00 / 1412.00 -500 / -500 Lab / Micro Data Result Diagrams: 05/16/22 08:35 05/16/22 08:35 Labs: Laboratory Results - last 24 hr 05/15/22 11:29: POC Glucose 174 H 05/15/22 16:25: POC Glucose 233 H 05/15/22 21:47: POC Glucose 243 H 05/16/22 06:34: POC Glucose 126 H 05/16/22 08:35: Vancomycin Trough 19.1 H 05/16/22 08:35: WBC 7.5, RBC 4.12 L, Hgb 11.6 L, Hct 36.8 L, MCV 89.3, MCH 28.2, MCHC 31.5 L, RDW Std Deviation 43.9, RDW Coeff of James 13.3, Plt Count 189, MPV 10.6, Immature Gran % (Auto) 0.300, Neut % (Auto) 62.8, Lymph % (Auto) 19.4, [place] % (Auto) 11.1 H, Eos % (Auto) 5.9 H, Baso % (Auto) 0.5, Absolute Neuts (auto) 4.7, Absolute Lymphs (auto) 1.45, Nucleated RBC % 0 05/16/22 08:35: Sodium 142, Potassium 4.2, Chloride 108 H, Carbon Dioxide 31.0, Anion Gap 3 L, BUN 19 H, Creatinine 1.02, Estim Creat Clear Calc 76.54, Est GFR (MDRD) Af Amer 95, Est GFR (MDRD) Non-Af 78, BUN/Creatinine Ratio 18.6, Glucose 109 H, Calcium 8.8 Micro: Microbiology 05/14/22 23:20 Wound - Heel Gram Stain - Final 05/14/22 18:50 Nasal Secretion SARS-CoV-2 & FLU Antigen (Rapid) - Final Physical Exam Const alert, oriented x3 and no apparent distress HEENT normocephalic, head/scalp atraumatic, hearing grossly normal bilaterally, moist oral mucous membranes and oropharynx normal Eyes PERRL, EOMs intact bilaterally and conjunctivae normal Eyes Narrative: No scleral icterus Neck no lymphadenopathy, supple, no JVD and no carotid bruits Resp normal respiratory effort, no retractions, no use of accessory muscles and clear to auscultation bilaterally Resp Narrative: On 2L of oxygen by nasal canula Auscultation: Negative for crackles, rales, rhonchi or wheezes Cardio regular rate, regular rhythm, S1 normal heart sound, S2 normal heart sound, no murmurs, no rub, no gallops, no clicks and no JVD GI normal to inspection, nondistended, normoactive bowel sounds, soft to palpation, non-tender and non-distended GI Narrative: PEG tube site appears to be healing well-no significant drainage. Extremity normal to inspection and full ROM Extremity Narrative: Radial pulses 2+ bilaterally. Pedal pulses and posterior tibial pulses 1+ with delayed capillary refill, no cyanosis or clubbing Skin Skin Narrative: superficial ulceration on sole of left foot. Intact dressing in place. Neuro oriented x3, CN's II-XII intact bilaterally, moves all extremities and no focal motor deficits Sensorium / Orientation: awake, alert, oriented to place and oriented to time Motor Exam: strength 5/5 throughout Psych affect normal Assessment & Plan Assessment/Plan (1) Ulcer of left foot, limited to breakdown of skin: (2) Cellulitis of left lower limb: PLAN: Plan Diabetic foot ulcer and cellulitis * on IV vancomycin and unasyn * podiatry on board. h * ulcer seems to be superficial * wound care on board * blood cultures and blood cultures pending * wbc trending downwards and is 7.5 today * #CELESTE: * CR was 1.45 on admission; baseline is ~ 1.1 * Cr down to 1.02. Will monitor. * . Being gently hydrated with IVF. Lasix and losartan * TYpe 2 diabetes mellitus * ISS. Accuchecks ACHS. * on lantus and ISS. * A1C is 8 (05/05/22) * #History of aspiration: speech therapy on board. On modified diet. #Chronic respiratory failure due to COPD * on 4L of oxygen. breahting treatments with bronchodilators * CPAP qhs * #Hypertension: on carvedilol #HFpEF: on imdur and spironolactone. will resume lasix since Cr has trended down #CAD s/p stent: on plavix. #ANxiety and depression; on xanax, buspirone and fluoxetine. DVT prophylaxis; lovenox Disposition: anticipate discharge home over next 24-48 hours Charges/Coding Visit Charges Inpatient E&M: 02629 Subs Hosp L2
[2022-05-16] MEDS: Pantoprazole Sodium 20 MG Tablet PO (09:52)
[2022-05-16] MEDS: Carvedilol 12.5 MG Tablet PO ×2 (09:52→22:05)
[2022-05-16] MEDS: Isosorbide Mononitrate 30 MG Tablet PO (09:53)
[2022-05-16] MEDS: Clopidogrel Bisulfate 75 MG Tablet PO (09:53)
[2022-05-16] MEDS: Enoxaparin 40 MG/0.4 ML Syringe SC ×2 (09:53→22:05)
[2022-05-16] MEDS: Menthol/Lanolin/Calamine/Znox 113 GM Tube 1 APPLIC TOPICAL ×2 (10:58→22:06)
[2022-05-16] MEDS: Fluoxetine HCl 40 MG CAPSULE PO (10:58)
[2022-05-16] MEDS: Aspirin E.C. 81 MG Tablet PO (10:59)
[2022-05-16] MEDS: Loratadine 10 MG Tablet PO (11:00)
[2022-05-16] MEDS: Finasteride 5 MG Tablet PO (11:00)
[2022-05-16] MEDS: Nystatin Powder 15gm Bottle 1 APPLIC TOPICAL ×2 (11:00→22:06)
[2022-05-16] MEDS: amLODIPine 5 MG Tablet PO (11:01)
[2022-05-16] MEDS: Vancomycin IV 1,000 MG/200 ML BAG 200 MG IV ×2 (11:17→22:18)
[2022-05-16] MEDS: ALPRAZolam 0.5 MG Tablet PO ×2 (11:18→22:16)
[2022-05-16] MEDS: Pregabalin 75 MG Capsule PO ×2 (11:18→22:16)
[2022-05-16] MEDS: FLUoxetine 20 MG Capsule PO (11:19)
[2022-05-16 12:15] LABS: Bedside Glucose 220 mg/dL (74-106)
[2022-05-16] MEDS: Insulin Lispro 100 UNIT/ML INSULN.PEN SC ×2 (12:34→17:42)
--- NOTE | 2022-05-16 14:06 | PCM.RX.CS ---
Consult Pharmacy has been consulted to manage selected antiobiotic: Vancomycin Type of Consult: Follow-up Labs: Sodium 142 mmol/L (136-145) 05/16/22 08:35 Potassium 4.2 mmol/L (3.5-5.1) 05/16/22 08:35 Chloride 108 mmol/L (98-107) H 05/16/22 08:35 Carbon Dioxide 31.0 mmol/L (21.0-32.0) 05/16/22 08:35 Anion Gap 3 (5-15) L 05/16/22 08:35 BUN 19 mg/dL (7-18) H 05/16/22 08:35 Creatinine 1.02 mg/dL (0.70-1.30) 05/16/22 08:35 Est GFR (MDRD) Af Amer 95 mL/min (>60) 05/16/22 08:35 Est GFR (MDRD) Non-Af 78 mL/min (>60) 05/16/22 08:35 BUN/Creatinine Ratio 18.6 RATIO (10-20) 05/16/22 08:35 Glucose 109 mg/dL (74-106) H 05/16/22 08:35 Vancomycin Trough 19.1 ug/mL (5.0-15.0) H 05/16/22 08:35 Microbiology: Microbiology 05/14/22 23:20 Wound - Heel Gram Stain - Final 05/14/22 18:50 Nasal Secretion SARS-CoV-2 & FLU Antigen (Rapid) - Final Goal Trough: 10-15 mcg/mL Pharmacy Plan for Drug Dosing: VANCOMYCIN LEVEL RECEIVED Current Vancomycin Dose: 1250MG IV Q12hr Number of Doses Received: 3 Vancomycin Level: 19.1 Hours Since Last Dose: 12hr Renal Function: 1.02 Renal Function Trend: improved Lab/Micro: Pending Vancomycin Plan/Comments: The patient had a trough drawn which resulted in a value of 19.1 (drawn appropriately). The trough goal is 10-15. Will decrease the dose slightly and start new dosing regimen this morning, as the AM dose of the current regimen (1250mg) was not administered yet. Start Vancomycin 1000mg IV Q12hr to start 05/16/22 @1100 Pending Level: 05/17/22 @2230, prior to 4th dose of new regimen. Pharmacy Service will continue to monitor and adjust dosing as required.
[2022-05-16 14:34] VITALS: BP 135/51; PULSE 100; RESP 18; TEMP 36.7; O2SAT 100
[2022-05-16 16:11] LABS: Bedside Glucose 174 mg/dL (74-106)
[2022-05-16 18:44] VITALS: BP 151/73; PULSE 69; RESP 18; TEMP 36.8; O2SAT 100
[2022-05-16 22:02] VITALS: BP 166/93; PULSE 87; RESP 18; TEMP 37; O2SAT 97
[2022-05-16] MEDS: Atorvastatin Calcium 80 MG Tablet PO (22:05)
[2022-05-16] MEDS: traZODone 100 MG Tablet PO (22:06)
[2022-05-16] MEDS: Insulin Glargine-YFGN 100 UNIT/ML Pen 44 UNIT SC (22:08)
[2022-05-16 22:41] LABS: Bedside Glucose 193 mg/dL (74-106)
[2022-05-17 03:10] VITALS: BP 153/109; PULSE 73; RESP 20; TEMP 36.9; O2SAT 100
[2022-05-17] MEDS: busPIRone 15 MG TABLET 7.5 MG PO (05:04)
[2022-05-17 06:56] LABS: Bedside Glucose 109 mg/dL (74-106)
[2022-05-17 08:05] VITALS: O2SAT 94
[2022-05-17 09:24] VITALS: BP 136/85; PULSE 70; RESP 16; TEMP 36.3; O2SAT 98
[2022-05-17] MEDS: Menthol/Lanolin/Calamine/Znox 113 GM Tube 1 APPLIC TOPICAL (09:42)
[2022-05-17] MEDS: Loratadine 10 MG Tablet PO (09:42)
[2022-05-17] MEDS: Carvedilol 12.5 MG Tablet PO (09:43)
[2022-05-17] MEDS: Isosorbide Mononitrate 30 MG Tablet PO (09:43)
[2022-05-17] MEDS: Aspirin E.C. 81 MG Tablet PO (09:43)
[2022-05-17] MEDS: Nystatin Powder 15gm Bottle 1 APPLIC TOPICAL (09:44)
[2022-05-17] MEDS: Enoxaparin 40 MG/0.4 ML Syringe SC (09:44)
[2022-05-17] MEDS: amLODIPine 5 MG Tablet PO (09:45)
[2022-05-17] MEDS: Finasteride 5 MG Tablet PO (09:45)
[2022-05-17] MEDS: Clopidogrel Bisulfate 75 MG Tablet PO (09:45)
[2022-05-17] MEDS: Pantoprazole Sodium 20 MG Tablet PO (09:46)
[2022-05-17] MEDS: Fluoxetine HCl 40 MG CAPSULE PO (09:47)
[2022-05-17] MEDS: Pregabalin 75 MG Capsule PO (09:50)
[2022-05-17] MEDS: ALPRAZolam 0.5 MG Tablet PO (09:50)
[2022-05-17] MEDS: FLUoxetine 20 MG Capsule PO (09:50)
--- NOTE | 2022-05-17 10:36 | PN_ITS ---
Subjective Subjective Patient seen and examined. He denies fever, chill, nausea, vomiting or foot pain. Objective Data Objective Data Vital Signs: Vital Signs Temp Pulse Resp BP Pulse Ox 97.4 F L 70 16 136/85 H 98 05/17/22 09:24 05/17/22 09:24 05/17/22 09:24 05/17/22 09:24 05/17/22 09:24 Oxygen Flow Rate (L/min) 2 Oxygen Delivery Method Nasal Cannula Weight: 130.4 kg Body Mass Index (BMI) 41.1 Intake & Output: Intake and Output for Last 24 Hours 05/15/22 05/16/22 05/17/22 23:59 23:59 23:59 Intake Total 2412.00 / 2412.00 1550 / 1550 130 / 130 Output Total 1000 / 1000 1850 / 2650 1999 / 1999 Balance 1412.00 / 1412.00 -300 / -1100 -1870 / -1870 Lab / Micro Data Result Diagrams: 05/16/22 08:35 05/16/22 08:35 Labs: Laboratory Results - last 24 hr 05/16/22 11:58: POC Glucose 220 H 05/16/22 16:07: POC Glucose 174 H 05/16/22 22:08: POC Glucose 193 H 05/17/22 06:47: POC Glucose 109 H Micro: Microbiology 05/15/22 00:45 Blood Culture (Wb) - Right Hand Blood Culture - Preliminary No growth in 48 hours. 05/15/22 00:16 Blood Culture (Wb) - Right Hand Blood Culture - Preliminary No growth in 48 hours. 05/14/22 23:20 Wound - Heel Gram Stain - Final 05/14/22 23:20 Wound - Heel Wound Culture - Preliminary Staphylococcus species GPC Poss Enterococcus sp 05/14/22 18:50 Nasal Secretion SARS-CoV-2 & FLU Antigen (Rapid) - Final Physical Exam Const no apparent distress General Appearance: cooperative HEENT normocephalic Extremity Extremity Narrative: No calf tenderness left Left no bogginess or fluctuance on palpation or palpable abscess or mass No pain response with palpation to skin change site to the plantar lateral heel, left Compartments remain soft to palpate to the left lower extremity General Extremity: edema and no tenderness to palpation of joints or extremities; Negative for cyanosis Skin Skin Narrative: Left heel prior blister with superficial skin peeling and remaining dried skin with some hematogenous dried drainage. The adjacent erythema has resolved in intensity and location. There is no active drainage or streaking. His skin is hairless and atrophic. There is no maceration or deep tissue exposure or necrosis Neuro Neuro Narrative: lack of normal epicritic sensation via light touch is consistent with neuropathy status Psych cooperative and affect normal Assessment & Plan Assessment/Plan (1) Cellulitis of left lower limb: (2) Type 2 diabetes mellitus with diabetic polyneuropathy: (3) Ulcer of left foot, limited to breakdown of skin: (4) Blister (nonthermal), left foot, initial encounter: PLAN: Plan I reviewed and discussed his case today. He is afebrile and his white blood cell count has trended down to 7.5. His prior ESR 27, C-reactive protein 12.8. Resolution of erythema is noted and his foot appears stable. He has been on broad-spectrum IV antibiotics and now is ready to transition to oral antibiotics for discharge home. The following work up and care recommendations were made: Dressing: Betadine gauze secured with tape. I recommend he change his daily Offload: To maintain a nonweightbearing status left heel. It is okay to stabilize with forefoot touch with surgical shoe in place. To use walker Vascular: His preliminary noninvasive vascular study was reviewed with abnormal findings. He has noncompressible vessels and has a toe brachial index of 0.22 and 9 calculated EKTA. This is significant with peripheral vascular disease. He does not appear to have critical limb ischemia or need for any urgent inte rvention however this is impaired. I recommend an outpatient vascular referral. Several years ago he had cardiac and lower extremity stents placed by Dr. Canela at [facility] and in the more recent setting followed up with Dr. Julian locally. I recommended he follow-up with Dr. Julian locally to see if additional intervention is possible to optimize healing and prevent further limb loss and ulcer formation. Edema: Elevation Infection: To continue on broad-spectrum IV antibiotics at this time. His cellulitis area was marked and is clinically resolved today. His infection markers from a lab standpoint are trending towards improvement. His wound culture was MRSA negative however it is noted this was taken from a superficial dry site. Blood cultures pending without growth so far. I recommend discharge home on oral antibiotics. Pain: Controlled Host factors: His multiple comorbidities are noted including diabetes which may compromise his healing. His last A1c is now 8.2%. It is okay for this patient to follow-up in outpatient setting. Continue medical management per primary team is noted and appreciated. Please do not hesitate to call if you have any questions. Marley De Luna DPM, [facility] [place] [phone] Note: [employer] speech recognition consulting business developer software was used to create portions of this document. Sound-alike and misspelled words, as well as other consulting business developer errors may be contained in the documentation.
--- NOTE | 2022-05-17 10:55 | DS.PCM_ITS ---
Providers Date of Admission: 05/14/22 Date of Discharge: 05/17/22 Primary Care Physician: Dr. Doretha Brown MD Consultations 05/14/22 22:30 Consult: Onc/Wound/convertible top installer Routine Comment: Consult: Podiatry Routine Consulting Provider: Marley De Luna Reason for Consult: L Diabetic foot wound EMERGENT Consult: No MD Notified: Yes Date Notified: 05/14/22 Time Notified: 21:06 Method of Notification: Text Reason For Visit: L DIABETIC FOOT INFECTION Diagnosis Discharge Diagnosis (1) Cellulitis of left lower limb: Status: Acute Code(s): L03.116 - Cellulitis of left lower limb (2) Type 2 diabetes mellitus with diabetic polyneuropathy: Status: Acute Code(s): E11.42 - Type 2 diabetes mellitus with diabetic polyneuropathy (3) Ulcer of left foot, limited to breakdown of skin: Status: Acute Code(s): L97.521 - Non-pressure chronic ulcer of other part of left foot limited to breakdown of skin (4) Blister (nonthermal), left foot, initial encounter: Status: Acute Code(s): S90.822A - Blister (nonthermal), left foot, initial encounter Medications at Discharge Home Medications acetaminophen 500 mg tablet 1,000 mg PO QHS PRN PRN Pain 1-10 Or Fever 02/11/21 aspirin 81 mg tablet,delayed release (Adult Aspirin Regimen) 81 mg PO DAILY heart health 11/05/21 spironolactone 25 mg tablet 40 mg PO DAILY diuretic 11/08/21 loratadine 10 mg tablet (Allergy Relief (loratadine)) 10 mg G-tube DAILY #0 tabs 11/14/21 peg [id number] 1 %-0.2 %-0.2 % eye drops (Artificial Tears ([id number])) 2 drp EACH EYE Q1H PRN DRY EYES #0 mL 11/14/21 nitroglycerin 0.4 mg sublingual tablet 0.4 mg sublingual Q5M PRN Chest Pain #30 tabs 11/25/21 gauze bandage 4 X 4 sponge (Curity Gauze) #1 ea 11/27/21 atorvastatin 80 mg tablet 80 mg PO QHS cholesterol #90 tabs 01/09/22 finasteride 5 mg tablet 5 mg PO DAILY prostate #90 tabs 01/09/22 furosemide 40 mg tablet 40 mg PO DAILY fluid #90 tabs 01/09/22 insulin lispro 100 unit/mL subcutaneous pen 1 sliding scale dose subcut .5 times daily dm 01/27/22 albuterol sulfate 90 mcg/actuation aerosol inhaler 2 puff inhalation Q4H PRN shortness of breath or wheezing #8.5 grams 02/04/22 pantoprazole 20 mg tablet,delayed release 20 mg PO DAILY gerd 02/04/22 carvedilol 12.5 mg tablet 12.5 mg PO BID heart #180 tabs 02/05/22 nut.tx impaired digestive fxn-fiber 0.08 gram-1.2 kcal/mL oral liquid (Vital AF 1.2 Will) 90 ml feeding tube TID feeding 02/22/22 buspirone 7.5 mg tablet 7.5 mg PO TID mood #90 tabs 03/09/22 fluoxetine 20 mg capsule 20 mg PO DAILY depression #90 caps 03/09/22 fluoxetine 40 mg capsule 40 mg PO DAILY depression #90 caps 03/09/22 syringe, ENFit, non-sterile 60 mL (Piston Syringe with ENFit) #30 ea 03/20/22 alprazolam 0.5 mg tablet 0.5 mg PO BID anxiety 03/21/22 amlodipine 5 mg tablet 5 mg G-tube DAILY bp 03/21/22 losartan 50 mg tablet 50 mg PO DAILY bp 03/21/22 clopidogrel 75 mg tablet 75 mg PO DAILY blood thinner #90 tabs 03/30/22 isosorbide mononitrate 30 mg tablet,extended release 24 hr 30 mg PO DAILY heart #90 tabs 03/30/22 pregabalin 75 mg capsule (Lyrica) 75 mg PO BID nerve pain #60 caps 03/30/22 trazodone 100 mg tablet 100 mg G-tube QHS #90 tabs 03/30/22 low-sodium #1 ea 04/23/22 insulin detemir U-100 100 unit/mL (3 mL) subcutaneous pen 44 unit subcut QHS dm 05/06/22 insulin lispro 100 unit/mL subcutaneous pen 12 unit subcut 5X/DAY 05/06/22 gauze bandage 4 X 4 (Bordered Gauze) #14 ea 05/07/22 levofloxacin 500 mg tablet 500 mg PO DAILY #7 tabs 05/17/22 Hospital Course Operations None Procedures None Summary of Care Provided Minutes Spent on Discharge: 40 Hospital Course: Patient is a 62-year-old male with a past medical history as outlined was admitted through the ED on 05/13/2022 with a complaint of fever and left foot wound as well as a cough. Patient also had a history of recurrent aspiration pneumonia due to dysphagia and had a PEG tube removed on May 07, 2022 due to difficulty with caring for the PEG tube at home current infection. He was subsequently started on clindamycin. Subsequently came into the ED for left foot wound near the heel of the foot. He was discharged home on a course of Keflex and Bactrim and the clindamycin that he had been on was discontinued. However he developed a fever at home so he came into the ED and per his his fever was 103 Fahrenheit just prior to arrival. WBC was elevated at 12.3 and lactic acid was normal. Left foot x-ray showed degenerative changes of the foot without acute fracture or dislocation and no evidence of osteomyelitis. Was admitted to be managed for cellulitis and diabetic foot ulcer of the left foot. He was started on IV vancomycin and unasyn. Podiatry was consulted. He had bedside debridement done. White cell count trended down and he felt much better. He was deemed as not needing any surgical intervention by podiatry. Of note, per podiatry was noted to have abnormal findings on his noninvasive vasc ular study which was significant for peripheral vascular disease. He was therefore commended that he follow-up with vascular surgery. Patient remained stable and was discharged home on 05/17/2022. Blood cultures were negative and wound cultures grew Staphylococcus species and gram-positive coccus possibly Enterococcus. He remained stable and was discharged home on PO levaquin 500mg daily x 1 week. He is to follow up with his PCP and podiatry in 1-2 weeks. He was also referred to vascular surgery. Patient seen and examined prior to discharge. He had no other complaints and felt very well. He wanted to be discharged home. Review of systems was otherwise negative. Labs and vitals reviewed. Home meds reviewed and reconciled. Physical Exam Const alert, oriented x3 and no apparent distress General Appearance: cooperative, comfortable and well kempt Exam Limitations: no limitations HEENT normocephalic, head/scalp atraumatic, hearing grossly normal bilaterally, moist oral mucous membranes and oropharynx normal Eyes PERRL, EOMs intact bilaterally and conjunctivae normal Eyes Narrative: No scleral icterus Neck no lymphadenopathy, supple, no JVD and no carotid bruits Resp normal respiratory effort, no retractions, no use of accessory muscles and clear to auscultation bilaterally Resp Narrative: On 2L of oxygen by nasal canula Auscultation: Negative for crackles, rales, rhonchi or wheezes Cardio regular rate, regular rhythm, S1 normal heart sound, S2 normal heart sound, no murmurs, no rub, no gallops, no clicks and no JVD GI normal to inspection, nondistended, normoactive bowel sounds, soft to palpation, non-tender and non-distended GI Narrative: PEG tube site appears to be healing well-no significant drainage. Extremity normal to inspection and full ROM Extremity Narrative: Radial pulses 2+ bilaterally. Pedal pulses and posterior tibial pulses 1+ with delayed capillary refill, no cyanosis or clubbing Skin Skin Narrative: superficial ulceration on sole of left foot. Intact dressing in place. Neuro oriented x3, CN's II-XII intact bilaterally, moves all extremities and no focal motor deficits Neuro Narrative: Sensorium / Orientation: awake, alert, oriented to place and oriented to time Motor Exam: strength 5/5 throughout Psych affect normal Weight / BMI Weight Weight: 287 lb 7.724 oz Body Mass Index (BMI) 41.1 ABG / Lab / Microbiology Data Result Diagrams: 05/16/22 08:35 05/16/22 08:35 Laboratory: Laboratory Results - last 24 hr 05/16/22 11:58: POC Glucose 220 H 05/16/22 16:07: POC Glucose 174 H 05/16/22 22:08: POC Glucose 193 H 05/17/22 06:47: POC Glucose 109 H Microbiology: Microbiology 05/15/22 00:45 Blood Culture (Wb) - Right Hand Blood Culture - Preliminary No growth in 48 hours. 05/15/22 00:16 Blood Culture (Wb) - Right Hand Blood Culture - Preliminary No growth in 48 hours. 05/14/22 23:20 Wound - Heel Gram Stain - Final 05/14/22 23:20 Wound - Heel Wound Culture - Preliminary Staphylococcus species GPC Poss Enterococcus sp 05/14/22 18:50 Nasal Secretion SARS-CoV-2 & FLU Antigen (Rapid) - Final D/C Instructions Discharge Diet: Low fat / Low cholesterol and 1800 Calorie Control Diet Weight Bearing Status: Weight bearing as tolerated Call your doctor if you observe: Fever of 101 or Higher, Shortness of breath, Dizziness, Swelling in the ankles, Chest pain and Uncontrolled pain Meaningful Use Info Meaningful Use Diagnoses (Choose all that apply): None applicable Discharge Plan Admission Admit Date/Time: 05/14/22 20:58 Primary Reason for Your Visit: diabetic foot infection Attending Provider: Nona Salcedo Primary Care Provider: Doretha Brown Consulting Providers: Marley De Luna ; Alicia Larkin Instructions Additional Instructions / Restrictions: Keep weight off of your left heel. It is okay to toe touch with surgical shoe in place as needed for balance and transfers. Use assistive device if needed. Apply dry gauze and tape to cover healing injury and blister site to the left foot. Wash foot with antibacterial soap and water daily during bathing. Discharge Orders/Prescriptions Prescriptions: New levofloxacin 500 mg tablet 500 mg PO DAILY Qty: 7 0RF Continued aspirin [Adult Aspirin Regimen] 81 mg tablet,delayed release (DR/EC) 81 mg PO DAILY atorvastatin 80 mg tablet 80 mg PO QHS Qty: 90 2RF furosemide 40 mg tablet 40 mg PO DAILY Qty: 90 3RF finasteride 5 mg tablet 5 mg PO DAILY Qty: 90 3RF pantoprazole 20 mg tablet,delayed release (DR/EC) 20 mg PO DAILY albuterol sulfate 90 mcg/actuation HFA aerosol inhaler 2 puff inhalation Q4H PRN (Reason: shortness of breath or wheezing) Qty: 8.5 3RF Rx Instructions: administer with spacer carvedilol 12.5 mg tablet 12.5 mg PO BID Qty: 180 3RF insulin lispro 100 unit/mL insulin pen 1 sliding scale dose subcut .5 times daily Protocol: 3. Sliding Scale Insulin Med Dosing Condition: 150-189 mg/dl = 1 unit Condition: 190-229 mg/dl = 2 units Condition: 230-269 mg/dl = 3 units Condition: 270-309 mg/dl = 4 units Condition: 310-349 mg/dl = 5 units Condition: 350-399 mg/dl = 6 units Condition: 400-449 mg/dl = 7 units Condition: Greater than 449 call physician Protocol Text: - Use for Total Daily Dose of Insulin 37-55 units - Obsese, infected, or steroid patients MEDIUM DOSING ALGORITHIM Rx Instructions: take 8-16 units 5 times daily per sliding scale. (DME) low-sodium See Rx Instructions .Route .MEDSUPPLY Qty: 1 0RF Rx Instructions: Low-sodium diet insulin detemir U-100 100 unit/mL (3 mL) insulin pen 44 unit subcut QHS insulin lispro 100 unit/mL insulin pen 12 unit SUBCUT 5X/DAY Rx Instructions: 12 units base rate plus sliding scale in the morning, before meals, and once in evening before snack time (DME) gauze bandage [Bordered Gauze] 4 X 4 bandage See Rx Instructions .ROUTE .MEDSUPPLY Qty: 14 2RF Rx Instructions: clean and dry wound two times daily and apply gauze acetaminophen 500 MG tablet 1,000 mg PO QHS PRN PRN (Reason: Pain 1-10 Or Fever) spironolactone 25 mg tablet 40 mg PO DAILY loratadine [Allergy Relief (loratadine)] 10 mg Tablet 10 mg G-tube DAILY Qty: 0 0RF Artificial Tears(hl-blne-dxub) 1-0.2-0.2 % Drops 2 drp EACH EYE Q1H PRN (Reason: DRY EYES) Qty: 0 0RF Vital AF 1.2 Will 0.08 gram- 1.2 kcal/mL Liquid 90 ml feeding tube TID losartan 50 mg tablet 50 mg PO DAILY amlodipine 5 mg tablet 5 mg G-tube DAILY alprazolam 0.5 mg tablet 0.5 mg PO BID nitroglycerin 0.4 mg tablet, sublingual 0.4 mg SL Q5M PRN (Reason: Chest Pain) Qty: 30 0RF (DME) Curity Gauze 4 X 4 sponge See Rx Instructions .ROUTE .MEDSUPPLY Qty: 1 0RF Rx Instructions: As directed fluoxetine 40 mg capsule 40 mg PO DAILY Qty: 90 2RF fluoxetine 20 mg capsule 20 mg PO DAILY Qty: 90 2RF buspirone 7.5 mg tablet 7.5 mg PO TID Qty: 90 2RF (DME) Piston Syringe with ENFit 60 mL syringe See Rx Instructions .ROUTE .MEDSUPPLY Qty: 30 0RF Rx Instructions: As directed clopidogrel 75 mg tablet 75 mg PO DAILY Qty: 90 3RF isosorbide mononitrate 30 mg tablet extended release 24 hr 30 mg PO DAILY Qty: 90 3RF pregabalin [Lyrica] 75 mg capsule 75 mg PO BID Qty: 60 1RF trazodone 100 mg tablet 100 mg G-tube QHS Qty: 90 0RF Discontinued amoxicillin-pot clavulanate 400-57 mg/5 mL suspension for reconstitution 10 ml PO BID 5 Days Qty: 100 0RF cephalexin [cephalexin] 500 mg capsule 500 mg PO Q6 Qty: 40 0RF sulfamethoxazole-trimethoprim [Bactrim] 400-80 mg tablet 1 tab PO BID Qty: 20 0RF Referrals / Follow Up: Jerzy Julian MD [STAFF PHYSICIAN] - Within 1 Month Doretha Brown MD [Primary Care Provider] - Marley De Luna DPM [STAFF PHYSICIAN] - In 1 Week Disposition Disposition (needs filled in before D/C Order can be placed): Home Health Service Charges/Coding Visit Charges Inpatient E&M: 07630 Disch Hosp
[2022-05-17] MEDS: Vancomycin IV 1,000 MG/200 ML BAG 200 MG IV (11:44)
[2022-05-17 13:05] VITALS: O2SAT 91; O2SAT 93; O2SAT 98
[2022-05-17 13:32] VITALS: BP 167/75; PULSE 65; RESP 16; TEMP 36.6; O2SAT 94
--- NOTE | 2022-05-18 09:36 | CASEMGMT ---
Emailed palliative care per request that pt was dc'd yesterday.
--- NOTE | 2022-05-18 15:59 | CASEMGMT ---
Social Work Telephone call to direction home, Sylvia Green. This social scientist left voicemail that patient discharge with home health care. Rosa Maria Villegas MSW, [facility]
== END 2022-05-17 14:02 | disposition home health service (06) | DRG 638 ==
LOC: ED 21:04 → MS3 21:14
PROVIDERS: Admitting Provider Internal Medicine; Emergency Provider Emergency Medicine; PCP Internal Medicine; Visit Provider Student in an Organized Health Care Education/Training Program
DX: E11.628 Type 2 diabetes mellitus with other skin complications (principal); L03.116 Cellulitis of left lower limb; J96.11 Chronic respiratory failure with hypoxia; I50.32 Chronic diastolic (congestive) heart failure; Z68.41 Body mass index [BMI] 40.0-44.9, adult; E11.621 Type 2 diabetes mellitus with foot ulcer; N17.9 Acute kidney failure, unspecified; E11.42 Type 2 diabetes mellitus with diabetic polyneuropathy; L97.521 Non-pressure chronic ulcer of other part of left foot limited to breakdown of skin; I11.0 Hypertensive heart disease with heart failure; J44.9 Chronic obstructive pulmonary disease, unspecified; E11.43 Type 2 diabetes mellitus with diabetic autonomic (poly)neuropathy; E66.01 Morbid (severe) obesity due to excess calories; Z79.4 Long term (current) use of insulin; E11.51 Type 2 diabetes mellitus with diabetic peripheral angiopathy without gangrene; Z93.1 Gastrostomy status; I25.10 Atherosclerotic heart disease of native coronary artery without angina pectoris; M19.90 Unspecified osteoarthritis, unspecified site; F41.9 Anxiety disorder, unspecified; E78.00 Pure hypercholesterolemia, unspecified; K21.9 Gastro-esophageal reflux disease without esophagitis; I25.2 Old myocardial infarction; F32.A Depression, unspecified; Z20.822 Contact with and (suspected) exposure to COVID-19; Z79.82 Long term (current) use of aspirin; Z99.81 Dependence on supplemental oxygen; Z79.899 Other long term (current) drug therapy; Z79.02 Long term (current) use of antithrombotics/antiplatelets
CPT/HCPCS: 36415; 71045; 73630; 80048; 80053; 80202; 81001; 82962; 83036; 83605; 83735; 84100; 85025; 85610; 85652; 85730; 86140; 87040; 87070; 87077; 87186; 87205; 87428; 87640; 92526; 92610; 93923; 97163; 97166; 97802; 97803; 99251; 99283; 99285; J7030; J7040; J7050; A4216; G0463; J0295

== ENCOUNTER 2022-05-27 12:50 | Outpatient (RCR) | payer MEDICARE, SELFPAY ==
[2022-05-27 13:20] VITALS: BP 132/82; PULSE 83; RESP 18; TEMP 35.7; BMI 41.1
--- NOTE | 2022-05-27 14:03 | PCM.WC.PN ---
History of Present Illness Date of Service: 05/27/22 Chief Complaint: left foot ulcer History of Wound: This 62-year-old male with significant past medical history of diabetes with neuropathy peripheral vascular disease, debility, prior PEG tube (not current), arrhythmia, restrictive airway disease, history of heart failure and cardiac stent placement, hypertension, GERD, sleep apnea and mood disorder is following up today from the hospital for a left foot ulcer. He relates the onset of the ulcer was 05-13-2022 after a blister occurred. He was treated for cellulitis with IV and then oral antibiotics during recent [facility] admission. He was referred to see vascular specialist after having abnormal arterial findings in which he did not proceed forward with yet. He did not start taking nutritional supplementation after he was discharged home as advised. He completed a course of Levaquin and is no longer on antibiotics. He recently saw his primary care physician and was referred to physical therapy for a functional capacity evaluation and to try to get a lift chair. He has been changing the dressing with dry gauze and offloading by walking on a surgical shoe. He denies redness, odor, fever, chill, nausea, vomiting. Progress of Wound: stable Objective Data Objective Data Vital Signs: Vital Signs Temp Pulse Resp BP O2 Del Method O2 Flow Rate 96.3 F L 83 18 132/82 H Nasal Cannula 4 05/27/22 13:20 05/27/22 13:20 05/27/22 13:20 05/27/22 13:20 05/27/22 13:20 05/27/22 13:20 Oxygen Flow Rate (L/min) 4 Oxygen Delivery Method Nasal Cannula Weight: 130.181 kg Body Mass Index (BMI) 41.1 Physical Exam Const no apparent distress General Appearance: cooperative Extremity Extremity Narrative: No calf tenderness left Left no bogginess or fluctuance on palpation or palpable abscess or mass No pain response with palpation to ulcer of the plantar lateral heel, left Compartments remain soft to palpate to the left lower extremity General Extremity: edema and no tenderness to palpation of joints or extremities; Negative for cyanosis Skin Skin Narrative: Ulcer plantar left heel with granular base and central necrotic fibrous plug without deep tissue exposure. No purulence, erythema streaking or odor. Mild serosanguineous drainage noted. His skin is hairless and atrophic. There is no maceration or deep tissue exposure or necrosis Neuro Neuro Narrative: lack of normal epicritic sensation via light touch is consistent with neuropathy status Psych cooperative and affect normal Debridement Note Debridement Note Wound debrided: plantar heel Laterality: Left Wound Grade/Stage: 1 Type of Debridement: Excisional debridement Anesthesia Used: 4% Lidocaine Solution Depth: in the subcutaneous layer Percentage of wound debrided: 100 Instrument Used: #15 blade Tissue Removed: fibrous, devitalized subcutaneous, biofilm, slough Severity: Fat Layer Exposed Amount of bleeding with debridement: Mild Bleeding Controlled with: Pressure Patient tolerated procedure: Patient tolerated procedure well Post-Debridement Measurements and Additional Note: Post-Debridement Measurements/Treatment - Nurse 1 - General Ulcer Assessment Start: 05/27/22 13:20 Freq: Status: Active Protocol: SARAH Activity Type Activity Date Activity User E-sign Co-sign Detail Recorded Client Recorded Date Recorded By Document 05/27/22 13:20 [facility] [id number] 05/27/22 13:33 [facility] 05/27/22 13:20 - Today's Visit Information Type of service Initial Visit Arrival Mode Wheelchair Transfer Assistance Other Transfer Assist (Other) 1 Accompanied by significant other Patient Identification Verified (Name & Yes ) Patient Requires Transmission-Based No Precautions Finger Stick Blood Sugar(mg/dl) (if 149 indicated): Blood Sugar Stated by Patient Height and Weight Height 5 ft 10 in Weight 130.181 kg Weight in Pounds 287.0 lbs Weight Measurement Method Stated by Patient Body Mass Index (BMI) 41.1 BMI Classification Obese BSA - Edd 2.43 Vital Signs Temperature (97.8 F-99.1 F) 96.3 F L Temperature Source Temporal Pulse Rate (60-100) 83 Pulse Location Monitor Respiratory Rate (12-18) 18 Respiratory rate source Observation Oxygen Delivery Method Nasal Cannula O2 L/MIN (L/min) 4 Blood Pressure (90/60-120/80) 132/82 H Blood Pressure Mean (mm Hg) 98 Source Monitor Position Sitting Blood Pressure Location Left Arm History Since Last Visit- (Skip if this is Patient's initial visit) Left Footwear Surgical Shoe with pressure relief insole Right Footwear Diabetic Shoe Pain Scale: 0-10 Numeric Is Patient Pain Free? Yes Lower Extremity Assessment/ Foot Assessment/ Toe Nail Assessment Right -Lower Extremity Comment (If N/A Above transmet amp ) -Posterior Tibial Doppler Multiphasic -Dorsalis Pedis Doppler Multiphasic -Extremity Color Pale -Hair Growth on Legs No -Hair Growth on Toes No -Temperature of Extremity Warm -Capillary Refill Less than 3 Seconds -Prior Amputation Yes Left -Posterior Tibial Doppler Monophasic -Dorsalis Pedis Doppler Monophasic -Extremity Color Pale -Hair Growth on Legs No -Hair Growth on Toes No -Temperature of Extremity Warm -Capillary Refill Less than 3 Seconds -Other Deformity No -Prior Foot Ulcer No -Charcot Joint No -Prior Amputation No -Thick Yes -Discolored Yes -Deformed No -Improper Length & Hygeine No Neuropathy Assessment Feet - Top Side and Bottom <Entered> (a) Communication Assessment Preferred language [place] Greenhouse Florist Required No Able to Read Yes Able to Write Yes Communication Tools None Right Hearing Abillity Normal Left Hearing Abillity Normal Visual Assistive Devices Glasses Teaching Assessment Preferences Verbal,Written, Audio/Visual, Demonstration Barriers to Learning None Readiness To Learn Good Willingness to Engage in Self Management High Activies Readiness to Engage in Self Management High Activities Anxiety Level Calm Cooperation Cooperative Perception Coherent Interest in Health Problem Asks Questions Education Importance Acknowledges Need Does Patient Smoke tobacco or other No substances Smoking Status Never smoker Is Patient Diabetic Yes Functional Assessment Recent Decline in Ability to Perform Ambulation, Transferring Culture/Nondenominational/Dry [employer] Cultural/Nondenominational Needs that may affect No Treatment Plan Teaching: Wound Center *Welcome to the Wound Center -Person Taught Patient, Significant Other -Teaching Method Discussion -Response to teaching Verbalize understanding Welcome to the Wound Care Center [place] (a) 1 - - 2 - - 3 - +. transmet amp 4 - - 5 - + WC - Nurse 1 - General Ulcer Measurement Start: 05/27/22 13:20 Freq: Status: Active Protocol: Activity Type Activity Date Activity User E-sign Co-sign Detail Recorded Client Recorded Date Recorded By Document 05/27/22 13:20 [facility] [id number] 05/27/22 13:33 [facility] 05/27/22 13:20 Wound Center Nurse 1 #1- L HEEL -Combined with other wound No -Current Size (cm) - Length 2.5 -Current Size (cm) - Width 2.8 -Current Size (cm) - Depth 0.1 -Total Square Cm 7.00 -Date of Last Picture (Recall this 05/27/22 field) -Photo Taken Yes -Tunneling No -Undermining/Tunneling No -Circular Undermining No -Exudate Amt Medium -Exudate Type Serosanguineous -Wound Margin Distinct, Outline Attached -Granulation Amt Medium (34-66%) -Granulation Quality Red -Slough/Fibrin Yes -Necrosis Amt Medium (34-66%) -Necrotic Tissue Type Eschar -Texture (Sammi-wound Skin Appearance) Assessed, Scarring -Moisture (Sammi-wound Skin Appearance) Assessed,Dry/ Scaly -Color (Sammi-wound Skin Appearance) Assessed -Temperature (Sammi-wound Skin No Abnormality Appearance) (Pt Warm) -Tenderness on Palpation (Sammi-wound No Skin Appearance) -Ulcer Cleansing Rinsed/ Irrigated with Saline -Foul Odor after Cleansing No -Anesthetic Used 4% Lidocaine Solution Lower Limb Edema Present Yes Right Calf (cm) 40 Right Ankle (cm) 27.5 Left Calf (cm) 44 Left Ankle (cm) 30 WC - Nurse 2 - General Ulcer CM Notes Start: 05/27/22 13:20 Freq: Status: Active Protocol: Activity Type Activity Date Activity User E-sign Co-sign Detail Recorded Client Recorded Date Recorded By Document 05/27/22 14:00 PL [id number] 05/27/22 14:02 PL 05/27/22 14:00 Wound Center Nurse 2 #1- L HEEL -Time 13:48 -Correct Patient Yes -Correct Side, Site, Position Yes -Correct Procedure Yes -Procedure Performed Yes -Type of Procedure Debridement -Clinical Debridement Subcutaneous -Tissue Removed Subcutaneous -Post Debridement (cm) - Length 2.5 -Post Debridement (cm) - Width 2.8 -Post Debridement (cm) - Depth 0.1 -Total Square (Post) (cm) 7.00 -Area of Debridement (cm) - Length 2.5 -Area of Debridement (cm) - Width 2.8 -Total Square (Area) (cm) 7.00 -Tunneling No -Undermining/Tunneling No -Circular Undermining No -Wound/Ulcer Outcome Not Healed -Ulcer Cleansing Rinsed/ Irrigated with Saline -Foul Odor after Cleansing No -Bioengineered Tissue No -Bleeding Controlled with Pressure -Treatment Response Procedure Tolerated Well -Debridement - Subq, 1st 20sq cm Yes Pain Scale: 0-10 Numeric Is Patient Pain Free? Yes Assessment/Plan Assessment/Plan (1) Non-pressure chronic ulcer of other part of left foot with fat layer exposed: CODE(S): L97.522 - Non-pressure chronic ulcer of other part of left foot with fat layer exposed (2) Cellulitis of left lower limb: CODE(S): L03.116 - Cellulitis of left lower limb PLAN: resolved (3) Other specified peripheral vascular diseases: CODE(S): I73.89 - Other specified peripheral vascular diseases (4) Venous insufficiency (chronic) (peripheral): CODE(S): I87.2 - Venous insufficiency (chronic) (peripheral) (5) Localized edema: CODE(S): R60.0 - Localized edema (6) Type 2 diabetes mellitus with diabetic polyneuropathy: CODE(S): E11.42 - Type 2 diabetes mellitus with diabetic polyneuropathy (7) Chronic malnutrition: CODE(S): E46 - Unspecified protein-calorie malnutrition (8) Difficulty in walking: CODE(S): R26.2 - Difficulty in walking, not elsewhere classified PLAN: Plan I reviewed and discussed his case today. Debridement was performed today as noted in the clinical panel to all of the ulcer sites. The following work up and care recommendations were made: Dressing: Change daily with hydrogel Wash: Antibacterial soap and water Tissue growth optimization: This will be considered after stability is maintained with advanced wound healing product application Offload: A prescription for offloading cam walker boot with dual density Plastizote liners with a pocket to take pressure off the heel ulcer was ordered today. He will make an appointment at the [facility] to get fitted Vascular: Abnormal blood flow studies noted. To follow up with vascular referral to Dr. Julian. Prior intervention noted. He continues on plavix. Edema: Ok to use single layer tubigrip. Venous doppler with reflux was ordered to assess for insufficiency. Infection: Cellulitis lala resolved. Prior culture w/ staph haemolyticus and coag neg staph and negative for MRSA. He completed course of antibiotics. diagnostics were reviewed rom last admission. on 05/16/22 esr 27 and crp 12.8. blood culture neg from 05/15/22. He completed course of levaquin daily for one week. Xray without soft tissue emphysema, fracture, foreign body or charcot. Pain: controlled due to neuropathic status. Host factors: He has diabetes and A1c was 8.2%. To improve to optimize healing. I recommend f/u with pcp, Dr. Brown. He was recently seen and lift chair, functional capacity evaluation and physical therapy was ordered. To take nutrional supplements such as Aubrey for healing optimization. I answered all the patient's questions. To return to the wound healing center in 1 week or call sooner if the patient has any questions or concerns. The medical decision making level is moderate based on data including at least three of the following: review of prior external notes, review of a test, ordering a test, assessment requiring an independent historian. The medical decision making level is moderate. There is noted moderate risk of morbidity after considering this treatment plan and diagnostic data. Considerations were given to prescription management, decisions regarding surgical options, or social determinants of health. Note: [employer] speech recognition business english instructor software was used to create portions of this document. Sound-alike and misspelled words, as well as other business english instructor errors may be contained in the documentation.
== END 2022-05-28 23:59 | disposition home or self-care (01) ==
LOC: WC 12:50
PROVIDERS: PCP Internal Medicine; Visit Provider Podiatrist
DX: E11.621 Type 2 diabetes mellitus with foot ulcer (principal); E11.51 Type 2 diabetes mellitus with diabetic peripheral angiopathy without gangrene; L97.422 Non-pressure chronic ulcer of left heel and midfoot with fat layer exposed; E11.42 Type 2 diabetes mellitus with diabetic polyneuropathy; L03.116 Cellulitis of left lower limb; R60.0 Localized edema; I10 Essential (primary) hypertension; K21.9 Gastro-esophageal reflux disease without esophagitis; G47.30 Sleep apnea, unspecified; Z79.82 Long term (current) use of aspirin; Z79.4 Long term (current) use of insulin; Z79.899 Other long term (current) drug therapy; Z95.5 Presence of coronary angioplasty implant and graft
CPT/HCPCS: 11042; 99213; G0463

== ENCOUNTER 2022-06-24 10:30 | Outpatient (RCR) | payer MEDICARE, MEDICAID, SELFPAY ==
[2022-05-29 00:50] VITALS: BP 132/82; PULSE 83; RESP 18; TEMP 35.7; BMI 41.1
[2022-06-03 13:52] VITALS: BP 133/62; PULSE 80; RESP 16; TEMP 36.1; BMI 41.1
--- NOTE | 2022-06-03 14:12 | PCM.WC.PN ---
History of Present Illness Date of Service: 06/03/22 Chief Complaint: left foot ulcer History of Wound: This 62-year-old male with significant past medical history of diabetes with neuropathy peripheral vascular disease, debility, prior PEG tube (not current), arrhythmia, restrictive airway disease, history of heart failure and cardiac stent placement, hypertension, GERD, sleep apnea and mood disorder is following up today from the hospital for a left foot ulcer. He relates the onset of the ulcer was 05-13-2022 after a blister occurred. He was treated for cellulitis with IV and then oral antibiotics during recent [facility] admission. He was referred to see vascular specialist after having abnormal arterial findings in which he did not proceed forward with yet. He did not start taking nutritional supplementation after he was discharged home as advised. He completed a course of Levaquin and is no longer on antibiotics. He recently saw his primary care physician and was referred to physical therapy for a functional capacity evaluation and to try to get a lift chair. He did not go yet and has difficulty walking with cam walker upon receipt last week. He has been changing the dressing with dry gauze and offloading by walking on a surgical shoe instead. He did not schedule follow up with vascular surgery yet as advised. He denies redness, odor, fever, chill, nausea, vomiting. Progress of Wound: improving ulcer quality Objective Data Objective Data Vital Signs: Vital Signs Temp Pulse Resp BP O2 Del Method O2 Flow Rate 97 F L 80 16 133/62 H Room Air 4 06/03/22 13:52 06/03/22 13:52 06/03/22 13:52 06/03/22 13:52 06/03/22 13:52 05/29/22 00:50 Oxygen Flow Rate (L/min) 4 Oxygen Delivery Method Room Air Weight: 130.181 kg Body Mass Index (BMI) 41.1 Physical Exam Const no apparent distress General Appearance: cooperative Extremity Extremity Narrative: No calf tenderness left Left no bogginess or fluctuance on palpation or palpable abscess or mass No pain response with palpation to ulcer of the plantar lateral heel, left Compartments remain soft to palpate to the left lower extremity General Extremity: edema and no tenderness to palpation of joints or extremities; Negative for cyanosis Skin Skin Narrative: Ulcer plantar left heel with improvement with granular base and central necrotic fibrous plug without deep tissue exposure. No purulence, erythema streaking or odor. Mild serosanguineous drainage noted. His skin is hairless and atrophic. There is no maceration or deep tissue exposure or necrosis Neuro Neuro Narrative: lack of normal epicritic sensation via light touch is consistent with neuropathy status Psych cooperative and affect normal Debridement Note Debridement Note Wound debrided: plantar heel Laterality: Left Wound Grade/Stage: 1 Type of Debridement: Excisional debridement Anesthesia Used: 4% Lidocaine Solution Depth: in the subcutaneous layer Percentage of wound debrided: 100 Instrument Used: #15 blade Tissue Removed: fibrous, devitalized subcutaneous, biofilm, slough Severity: Fat Layer Exposed Amount of bleeding with debridement: Mild Bleeding Controlled with: Pressure Patient tolerated procedure: Patient tolerated procedure well Debridement Free Text: 2.6 x 2.9 x 0.2 cm plantar left foot post debridement measurement Post-Debridement Measurements and Additional Note: Post-Debridement Measurements/Treatment - Nurse 1 - General Ulcer Assessment Start: 06/03/22 13:52 Freq: Status: Active Protocol: .LOWEXT Activity Type Activity Date Activity User E-sign Co-sign Detail Recorded Client Recorded Date Recorded By Document 06/03/22 13:52 [facility] [id number] 06/03/22 14:00 [facility] 06/03/22 13:52 - Today's Visit Information Type of service Follow-up Visit (Physician/EXTERMINATOR TERMITE ) Arrival Mode Wheelchair Transfer Assistance Other Transfer Assist (Other) 1 MAX Accompanied by Patient Identification Verified (Name & Yes ) Patient Requires Transmission-Based No Precautions Height and Weight Body Mass Index (BMI) 41.1 BMI Classification Obese Vital Signs Temperature (97.8 F-99.1 F) 97 F L Temperature Source Temporal Pulse Rate (60-100) 80 Pulse Location Monitor Respiratory Rate (12-18) 16 Respiratory rate source Observation Oxygen Delivery Method Room Air Blood Pressure (90/60-120/80) 133/62 H Blood Pressure Mean (mm Hg) 85 Source Monitor Position Sitting Blood Pressure Location Left Arm History Since Last Visit- (Skip if this is Patient's initial visit) Have you changed medications since your No last visit? Any new allergies or adverse reactions No Had a fall/change in ADL's that may No increase risk of falls Signs or symptoms of abuse and/or No neglect since last visit Have you been in the hospital since your No last visit? Has dressing in place as prescribed Yes Has compression in place as prescribed Yes Has offloadiing in place as prescribed Yes Experienced any changes in pain level or No management Left Footwear Surgical Shoe with pressure relief insole Right Footwear Regular Shoe Pain Scale: 0-10 Numeric Is Patient Pain Free? Yes WC - Nurse 1 - General Ulcer Measurement Start: 06/03/22 13:52 Freq: Status: Active Protocol: Activity Type Activity Date Activity User E-sign Co-sign Detail Recorded Client Recorded Date Recorded By Document 06/03/22 13:52 [facility] [id number] 06/03/22 14:00 [facility] 06/03/22 13:52 Wound Center Nurse 1 #1- L HEEL -Combined with other wound No -Current Size (cm) - Length 2.5 -Current Size (cm) - Width 2.8 -Current Size (cm) - Depth 0.2 -Total Square Cm 7.00 -Date of Last Picture (Recall this 06/03/22 field) -Photo Taken Yes -Epithelialization None Present -Tunneling No -Undermining/Tunneling No -Circular Undermining No -Exudate Amt Medium -Exudate Type Serosanguineous -Wound Margin Distinct, Outline Attached -Granulation Amt Medium (34-66%) -Granulation Quality Red -Slough/Fibrin Yes -Necrosis Amt Medium (34-66%) -Necrotic Tissue Type Adherent Slough -Texture (Sammi-wound Skin Appearance) Assessed,Callus ,Scarring -Moisture (Sammi-wound Skin Appearance) Assessed,Dry/ Scaly -Color (Sammi-wound Skin Appearance) Assessed -Temperature (Sammi-wound Skin No Abnormality Appearance) (Pt Warm) -Tenderness on Palpation (Sammi-wound No Skin Appearance) -Ulcer Cleansing Rinsed/ Irrigated with Saline -Foul Odor after Cleansing No -Anesthetic Used 5% Lidocaine Gel Lower Limb Edema Present Yes Left Calf (cm) 42.5 Left Ankle (cm) 31.2 Assessment/Plan Assessment/Plan (1) Non-pressure chronic ulcer of other part of left foot with fat layer exposed: CODE(S): L97.522 - Non-pressure chronic ulcer of other part of left foot with fat layer exposed (2) Cellulitis of left lower limb: CODE(S): L03.116 - Cellulitis of left lower limb PLAN: resolved (3) Other specified peripheral vascular diseases: CODE(S): I73.89 - Other specified peripheral vascular diseases (4) Venous insufficiency (chronic) (peripheral): CODE(S): I87.2 - Venous insufficiency (chronic) (peripheral) (5) Localized edema: CODE(S): R60.0 - Localized edema (6) Type 2 diabetes mellitus with diabetic polyneuropathy: CODE(S): E11.42 - Type 2 diabetes mellitus with diabetic polyneuropathy (7) Chronic malnutrition: CODE(S): E46 - Unspecified protein-calorie malnutrition (8) Difficulty in walking: CODE(S): R26.2 - Difficulty in walking, not elsewhere classified PLAN: Plan I reviewed and discussed his case today. Debridement was performed today as noted in the clinical panel to all of the ulcer sites. The following work up and care recommendations were made: Dressing: Change daily with hydrogel Wash: Antibacterial soap and water Tissue growth optimization: This will be considered after stability is maintained with advanced wound healing product application Offload: A prescription for offloading cam walker boot with dual density Plastizote liners with a pocket to take pressure off the heel ulcer was ordered today. This was completed however he has significant walking impairment and was unable to lift his leg safely. He uses a roller walker. I recommended a physical therapy referral for deconditioning prevention, gait and transfer training. This was faxed over today as an order. Vascular: Abnormal blood flow studies noted. To follow up with vascular referral to Dr. Julian. Prior intervention noted. He continues on plavix. He is noncompressible vessels and EKTA was not calculated. His toe brachial index on the left side is 0.22 and I do not recommend total contact cast application until adequate perfusion is confirmed. Edema: Ok to use single layer tubigrip. Venous doppler with reflux was ordered to assess for insufficiency. He was encouraged to get this scheduled. Infection: Cellulitis lala resolved. Prior culture w/ staph haemolyticus and coag neg staph and negative for MRSA. He completed course of antibiotics. diagnostics were reviewed rom last admission. on 05/16/22 esr 27 and crp 12.8. blood culture neg from 05/15/22. He completed course of levaquin daily for one week. Xray without soft tissue emphysema, fracture, foreign body or charcot. Pain: controlled due to neuropathic status. Host factors: He has diabetes and A1c was 8.2%. To improve to optimize healing. I recommend f/u with pcp, Dr. Brown. He was recently seen and lift chair, functional capacity evaluation and physical therapy was ordered. To take nutrional supplements such as Aubrey for healing optimization. I answered all the patient's questions. To return to the wound healing center in 1 week or call sooner if the patient has any questions or concerns. Note: [employer] speech recognition sales merchandiser software was used to create portions of this document. Sound-alike and misspelled words, as well as other sales merchandiser errors may be contained in the documentation. 11 minutes was spent on this encounter. This included face to face and non face to face care including preparing for the visit, reviewing the history, performing the exam, counseling and providing education to the patient, family, or caregiver, ordering medications/test/ procedures if indicated as documented, communicating with other healthcare providers, documenting information in the medical record, interpreting / sharing this information when indicated as documented, and care coordination.
[2022-06-10 13:31] VITALS: BP 168/69; PULSE 88; TEMP 36.6; BMI 41.1
--- NOTE | 2022-06-10 14:00 | PN.PCM_ITS ---
History of Present Illness Date of Service: 06/10/22 Chief Complaint: left foot ulcer History of Wound: This 62-year-old male with significant past medical history of diabetes with neuropathy peripheral vascular disease, debility, prior PEG tube (not current), arrhythmia, restrictive airway disease, history of heart failure and cardiac stent placement, hypertension, GERD, sleep apnea and mood disorder is following up today from the hospital for a left foot ulcer. He relates the onset of the ulcer was 05-13-2022 after a blister occurred. He was treated for cellulitis with IV and then oral antibiotics during recent [facility] admission. He was referred to see vascular specialist after having abnormal arterial findings in which he did not proceed forward with yet. He did not start taking nutritional supplementation after he was discharged home as advised. He completed a course of Levaquin and is no longer on antibiotics. He recently saw his primary care physician and was referred to physical therapy for a functional capacity evaluation and to try to get a lift chair. He has been changing the dressing with dry gauze and offloading by walking on a surgical shoe instead. He is in the process of getting this scheduled. He denies redness, odor, fever, chill, nausea, vomiting. Progress of Wound: improving ulcer quality Objective Data Objective Data Vital Signs: Vital Signs Temp Pulse Resp BP O2 Del Method O2 Flow Rate 97.9 F 88 16 168/69 H Room Air 4 06/10/22 13:31 06/10/22 13:31 06/03/22 13:52 06/10/22 13:31 06/03/22 13:52 05/29/22 00:50 Oxygen Flow Rate (L/min) 4 Oxygen Delivery Method Room Air Weight: 130.181 kg Body Mass Index (BMI) 41.1 Physical Exam Const no apparent distress General Appearance: cooperative Extremity Extremity Narrative: No calf tenderness left Left no bogginess or fluctuance on palpation or palpable abscess or mass No pain response with palpation to ulcer of the plantar lateral heel, left Compartments remain soft to palpate to the left lower extremity General Extremity: edema and no tenderness to palpation of joints or extremities; Negative for cyanosis Skin Skin Narrative: Ulcer plantar left heel with improvement with granular base and central necrotic fibrous plug without deep tissue exposure. No purulence, erythema streaking or odor. Mild serosanguineous drainage noted. His skin is hairless and atrophic. There is no maceration or deep tissue exposure or necrosis Neuro Neuro Narrative: lack of normal epicritic sensation via light touch is consistent with neuropathy status Psych cooperative and affect normal Debridement Note Debridement Note Wound debrided: plantar heel Laterality: Left Wound Grade/Stage: 1 Type of Debridement: Excisional debridement Anesthesia Used: 4% Lidocaine Solution Depth: in the subcutaneous layer Percentage of wound debrided: 100 Instrument Used: #15 blade Tissue Removed: fibrous, devitalized subcutaneous, biofilm, slough Severity: Fat Layer Exposed Amount of bleeding with debridement: Mild Bleeding Controlled with: Pressure Patient tolerated procedure: Patient tolerated procedure well Debridement Free Text: 2.6 x 2.9 x 0.2 cm plantar left foot post debridement measurement Post-Debridement Measurements and Additional Note: Post-Debridement Measurements/Treatment - Nurse 1 - General Ulcer Assessment Start: 06/03/22 13:52 Freq: Status: Active Protocol: SARAH Activity Type Activity Date Activity User E-sign Co-sign Detail Recorded Client Recorded Date Recorded By Document 06/03/22 13:52 [facility] [id number] 06/03/22 14:00 [facility] Document 06/10/22 13:31 [facility] [id number] 06/10/22 13:32 [facility] 06/03/22 06/10/22 13:52 13:31 - Today's Visit Information Type of service Follow-up Visit Follow-up Visit (Physician/DEPUTY PROGRAM MANAGER (Physician/DEPUTY PROGRAM MANAGER ) ) Arrival Mode Wheelchair Wheelchair Transfer Assistance Other None Transfer Assist (Other) 1 MAX Accompanied by Patient Identification Verified (Name & Yes Yes ) Patient Requires Transmission-Based No No Precautions Safety Precautions NA Height and Weight Body Mass Index (BMI) 41.1 41.1 BMI Classification Obese Obese Vital Signs Temperature (97.8 F-99.1 F) 97 F L 97.9 F Temperature Source Temporal Temporal Pulse Rate (60-100) 80 88 Pulse Location Monitor Monitor Respiratory Rate (12-18) 16 Respiratory rate source Observation Oxygen Delivery Method Room Air Blood Pressure (90/60-120/80) 133/62 H 168/69 H Blood Pressure Mean (mm Hg) 85 102 Source Monitor Monitor Position Sitting Blood Pressure Location Left Arm History Since Last Visit- (Skip if this is Patient's initial visit) Have you changed medications since your No No last visit? Any new allergies or adverse reactions No No Had a fall/change in ADL's that may No No increase risk of falls Signs or symptoms of abuse and/or No No neglect since last visit Have you been in the hospital since your No No last visit? Has dressing in place as prescribed Yes Yes Has compression in place as prescribed Yes Yes Has offloadiing in place as prescribed Yes Yes Experienced any changes in pain level or No No management Left Footwear Surgical Shoe Regular Shoe with pressure relief insole Right Footwear Regular Shoe Regular Shoe Pain Scale: 0-10 Numeric Is Patient Pain Free? Yes Yes - Nurse 1 - General Ulcer Measurement Start: 06/03/22 13:52 Freq: Status: Active Protocol: Activity Type Activity Date Activity User E-sign Co-sign Detail Recorded Client Recorded Date Recorded By Document 06/03/22 13:52 [facility] [id number] 06/03/22 14:00 [facility] Document 06/10/22 13:31 [facility] [id number] 06/10/22 13:32 [facility] 06/03/22 06/10/22 13:52 13:31 Wound Center Nurse 1 #1- L HEEL -Combined with other wound No No -Current Size (cm) - Length 2.5 2 -Current Size (cm) - Width 2.8 2 -Current Size (cm) - Depth 0.2 0.1 -Total Square Cm 7.00 4 -Date of Last Picture (Recall this 06/03/22 field) -Photo Taken Yes No -Epithelialization None Present -Tunneling No No -Undermining/Tunneling No No -Circular Undermining No No -Exudate Amt Medium Medium -Exudate Type Serosanguineous Serosanguineous -Wound Margin Distinct, Distinct, Outline Outline Attached Attached -Granulation Amt Medium (34-66%) Large (67-100%) -Granulation Quality [place] -Slough/Fibrin Yes Yes -Necrosis Amt Medium (34-66%) Small (1-33%) -Necrotic Tissue Type Adherent Slough Adherent Slough -Structure Exposed N/A -Texture (Sammi-wound Skin Appearance) Assessed,Callus No Abnormality, ,Scarring Assessed -Moisture (Sammi-wound Skin Appearance) Assessed,Dry/ No Abnormality, Scaly Assessed -Color (Sammi-wound Skin Appearance) Assessed No Abnormality, Assessed -Temperature (Sammi-wound Skin No Abnormality No Abnormality Appearance) (Pt Warm) (Pt Warm) -Tenderness on Palpation (Sammi-wound No Yes Skin Appearance) -Ulcer Cleansing Rinsed/ Rinsed/ Irrigated with Irrigated with Saline Saline -Foul Odor after Cleansing No -Anesthetic Used 5% Lidocaine 5% Lidocaine Gel Gel Lower Limb Edema Present Yes No Left Calf (cm) 42.5 42 Left Ankle (cm) 31.2 29 - Nurse 2 - General Ulcer CM Notes Start: 06/03/22 13:52 Freq: Status: Active Protocol: Activity Type Activity Date Activity User E-sign Co-sign Detail Recorded Client Recorded Date Recorded By Document 06/03/22 15:35 PL [id number] 06/03/22 15:36 PL Document 06/10/22 13:39 [id number] 06/10/22 13:42 06/03/22 06/10/22 15:35 13:39 Wound Center Nurse 2 #1- L HEEL -Time 14:05 13:40 -Correct Patient Yes Yes -Correct Side, Site, Position Yes Yes -Correct Procedure Yes Yes -Procedure Performed Yes Yes -Type of Procedure Debridement Debridement -Clinical Debridement Subcutaneous Subcutaneous -Tissue Removed Subcutaneous Subcutaneous -Post Debridement (cm) - Length 2.5 2.1 -Post Debridement (cm) - Width 2.8 2.1 -Post Debridement (cm) - Depth 0.2 0.1 -Total Square (Post) (cm) 7.00 4.41 -Area of Debridement (cm) - Length 2.5 2.1 -Area of Debridement (cm) - Width 2.8 2.1 -Total Square (Area) (cm) 7.00 4.41 -Tunneling No No -Undermining/Tunneling No No -Circular Undermining No No -Wound/Ulcer Outcome Not Healed Not Healed -Ulcer Cleansing Rinsed/ Rinsed/ Irrigated with Irrigated with Saline Saline -Foul Odor after Cleansing No No -Bioengineered Tissue No No -Bleeding Controlled with Pressure Pressure -Treatment Response Procedure Procedure Tolerated Well Tolerated Well -Offloading Yes -Type of Offloading Surgical Shoe -Debridement - Subq, 1st 20sq cm Yes Yes Pain Scale: 0-10 Numeric Is Patient Pain Free? Yes Yes - Nurse 3 - General Ulcer D/C NN Start: 06/03/22 13:52 Freq: Status: Active Protocol: Activity Type Activity Date Activity User E-sign Co-sign Detail Recorded Client Recorded Date Recorded By Document 06/03/22 14:27 [facility] [id number] 06/03/22 14:28 [facility] 06/03/22 14:27 Wound Care Nurse 3 #1- L HEEL -Ulcer Cleansing Rinsed/ Irrigated with Saline -Foul Odor after Cleansing No -Primary Dressing Applied Other -Other Dressing HYDROGEL -Primary Dressing Covered/Secured with Dry Gauze & Roll Gauze, Secured with Tape,Other -Other Covering HEEL HAT Left -Tubular Bandage Single Layer -Size of Tubigrip Used Size E -Size E ($) 1 Treatment Response Procedure Tolerated Well Pain Scale: 0-10 Numeric Is Patient Pain Free? Yes WC - Visit Discharge Discharge Condition Stable Ambulatory Status Wheelchair Transportation Private Auto Accompanied by Assessment/Plan Assessment/Plan (1) Type 2 diabetes mellitus with foot ulcer: CODE(S): E11.621 - Type 2 diabetes mellitus with foot ulcer; L97.509 - Non-pressure chronic ulcer of other part of unspecified foot with unspecified severity (2) Difficulty in walking: CODE(S): R26.2 - Difficulty in walking, not elsewhere classified (3) Non-pressure chronic ulcer of other part of left foot with fat layer exposed: CODE(S): L97.522 - Non-pressure chronic ulcer of other part of left foot with fat layer exposed (4) Cellulitis of left lower limb: CODE(S): L03.116 - Cellulitis of left lower limb PLAN: resolved (5) Other specified peripheral vascular diseases: CODE(S): I73.89 - Other specified peripheral vascular diseases (6) Venous insufficiency (chronic) (peripheral): CODE(S): I87.2 - Venous insufficiency (chronic) (peripheral) (7) Localized edema: CODE(S): R60.0 - Localized edema (8) Type 2 diabetes mellitus with diabetic polyneuropathy: CODE(S): E11.42 - Type 2 diabetes mellitus with diabetic polyneuropathy (9) Chronic malnutrition: CODE(S): E46 - Unspecified protein-calorie malnutrition PLAN: Plan I reviewed and discussed his case today. Debridement was performed today as noted in the clinical panel to all of the ulcer sites. The following work up and care recommendations were made: Dressing: Change daily with hydrogel Wash: Antibacterial soap and water Tissue growth optimization: I recommend application of advanced wound healing product, epifix. The indications, benefits, anticipated management and course were reviewed in detail today. He has been treated with comprehensive standard wound healing program this past month and would benefit from this treatment. This is medically necessary for limb and life salvage. Prior authorization will be initiated. Offload: A prescription for offloading cam walker boot with dual density Plastizote liners with a pocket to take pressure off the heel ulcer was ordered today. This was completed however he has significant walking impairment and was unable to lift his leg safely. He uses a roller walker. I recommended a physical therapy referral for deconditioning prevention, gait and transfer training. This was faxed over today as an order. Vascular: Abnormal blood flow studies noted. To follow up with vascular referral to Dr. Julian. Prior intervention noted. He continues on plavix. He is noncompressible vessels and EKTA was not calculated. His toe brachial index on the left side is 0.22 and I do not recommend total contact cast application until adequate perfusion is confirmed. Edema: Ok to use single layer tubigrip. Venous doppler with reflux was ordered to assess for insufficiency. He was encouraged to get this scheduled. Infection: Cellulitis lala resolved. Prior culture w/ staph haemolyticus and coag neg staph and negative for MRSA. He completed course of antibiotics. diagnostics were reviewed rom last admission. on 05/16/22 esr 27 and crp 12.8. blood culture neg from 05/15/22. He completed course of levaquin daily for one week. Xray without soft tissue emphysema, fracture, foreign body or charcot. Pain: controlled due to neuropathic status. Host factors: He has diabetes and A1c was 8.2%. To improve to optimize healing. I recommend f/u with pcp, Dr. Brown. He was recently seen and lift chair, functional capacity evaluation and physical therapy was ordered. To take nutrional supplements such as Aubrey for healing optimization. I answered all the patient's questions. To return to the wound healing center in 1 week or call sooner if the patient has any questions or concerns. Note: [employer] speech recognition collator operator software was used to create portions of this document. Sound-alike and misspelled words, as well as other collator operator errors may be contained in the documentation. 11 minutes was spent on this encounter. This included face to face and non face to face care including preparing for the visit, reviewing the history, performing the exam, counseling and providing education to the patient, family, or caregiver, ordering medications/test/ procedures if indicated as documented, communicating with other healthcare providers, documenting information in the medical record, interpreting / sharing this information when indicated as documented, and care coordination.
[2022-06-17 11:11] VITALS: BP 148/72; PULSE 88; RESP 24; TEMP 36.8; BMI 41.1
--- NOTE | 2022-06-17 13:58 | PN.PCM_ITS ---
History of Present Illness Date of Service: 06/17/22 Chief Complaint: left foot ulcer History of Wound: This 62-year-old male with significant past medical history of diabetes with neuropathy peripheral vascular disease, debility, prior PEG tube (not current), arrhythmia, restrictive airway disease, history of heart failure and cardiac stent placement, hypertension, GERD, sleep apnea and mood disorder is following up today from the hospital for a left foot ulcer. He relates the onset of the ulcer was 05-13-2022 after a blister occurred. He was treated for cellulitis with IV and then oral antibiotics during recent [facility] admission. He was referred to see vascular specialist after having abnormal arterial findings in which he did not proceed forward with yet. He did not start taking nutritional supplementation after he was discharged home as advised. He recently saw his primary care physician and was referred to physical therapy for a functional capacity evaluation and to try to get a lift chair. He denies redness, odor, fever, chill, nausea, vomiting. He had a really hard time with his physical therapy session and wants to go stop all sessions for couple months which is not recommended. He is also ready to proceed forward with advanced wound healing product application of this was approved today. He is with his today. Progress of Wound: improving Objective Data Objective Data Vital Signs: Vital Signs Temp Pulse Resp BP O2 Del Method O2 Flow Rate 98.3 F 88 24 H 148/72 H Room Air 4 06/17/22 11:11 06/17/22 11:11 06/17/22 11:11 06/17/22 11:11 06/03/22 13:52 05/29/22 00:50 Oxygen Flow Rate (L/min) 4 Oxygen Delivery Method Room Air Weight: 130.181 kg Body Mass Index (BMI) 41.1 Physical Exam Const no apparent distress General Appearance: cooperative Extremity Extremity Narrative: No calf tenderness left Left no bogginess or fluctuance on palpation or palpable abscess or mass No pain response with palpation to ulcer of the plantar lateral heel, left Compartments remain soft to palpate to the left lower extremity General Extremity: edema and no tenderness to palpation of joints or extremities; Negative for cyanosis Skin Skin Narrative: Ulcer plantar left heel with improvement with granular base and central necrotic fibrous plug without deep tissue exposure. No purulence, erythema streaking or odor. Mild serosanguineous drainage noted. His skin is hairless and atrophic. There is no maceration or deep tissue exposure or necrosis Neuro Neuro Narrative: lack of normal epicritic sensation via light touch is consistent with neuropathy status Psych cooperative and affect normal Debridement Note Debridement Note Wound debrided: plantar heel Laterality: Left Wound Grade/Stage: 1 Type of Debridement: Excisional debridement Anesthesia Used: 4% Lidocaine Solution Depth: in the subcutaneous layer Percentage of wound debrided: 100 Instrument Used: #15 blade Tissue Removed: fibrous, devitalized subcutaneous, biofilm, slough Severity: Fat Layer Exposed Amount of bleeding with debridement: Mild Bleeding Controlled with: Pressure Patient tolerated procedure: Patient tolerated procedure well Debridement Free Text: Post-Debridement Measurements and Additional Note: Post-Debridement Measurements/Treatment - Nurse 1 - General Ulcer Assessment Start: 06/03/22 13:52 Freq: Status: Active Protocol: SARAH Activity Type Activity Date Activity User E-sign Co-sign Detail Recorded Client Recorded Date Recorded By Document 06/03/22 13:52 [facility] [id number] 06/03/22 14:00 [facility] Document 06/10/22 13:31 [place] [id number] 06/10/22 13:32 [place] Document 06/17/22 11:11 DL [id number] 06/17/22 11:17 DL 06/03/22 06/10/22 06/17/22 13:52 13:31 11:11 - Today's Visit Information Type of service Follow-up Visit Follow-up Visit Follow-up Visit (Physician/SHRIMPER (Physician/SHRIMPER (Physician/SHRIMPER ) ) ) Arrival Mode Wheelchair Wheelchair Wheelchair Transfer Assistance Other None Manual Transfer Assist (Other) 1 MAX x2 Accompanied by Patient Identification Verified (Name & Yes Yes Yes ) Patient Requires Transmission-Based No No Precautions Safety Precautions NA Finger Stick Blood Sugar(mg/dl) (if not checked indicated): Blood Sugar Stated by Patient Height and Weight Body Mass Index (BMI) 41.1 41.1 41.1 BMI Classification Obese Obese Obese Vital Signs Temperature (97.8 F-99.1 F) 97 F L 97.9 F 98.3 F Temperature Source Temporal Temporal Temporal Pulse Rate (60-100) 80 88 88 Pulse Location Monitor Monitor Monitor Respiratory Rate (12-18) 16 24 H Respiratory rate source Observation Observation Oxygen Delivery Method Room Air Blood Pressure (90/60-120/80) 133/62 H 168/69 H 148/72 H Blood Pressure Mean (mm Hg) 85 102 97 Source Monitor Monitor Monitor Position Sitting Blood Pressure Location Left Arm History Since Last Visit- (Skip if this is Patient's initial visit) Have you changed medications since your No No No last visit? Any new allergies or adverse reactions No No No Had a fall/change in ADL's that may No No No increase risk of falls Signs or symptoms of abuse and/or No No No neglect since last visit Have you been in the hospital since your No No No last visit? Has dressing in place as prescribed Yes Yes Yes Has compression in place as prescribed Yes Yes Yes Has offloadiing in place as prescribed Yes Yes Yes Experienced any changes in pain level or No No No management Left Footwear Surgical Shoe Regular Shoe Removable Cast with pressure Walker/Walking relief insole Boot Right Footwear Regular Shoe Regular Shoe Pain Scale: 0-10 Numeric Is Patient Pain Free? Yes Yes Yes WC - Nurse 1 - General Ulcer Measurement Start: 06/03/22 13:52 Freq: Status: Active Protocol: Activity Type Activity Date Activity User E-sign Co-sign Detail Recorded Client Recorded Date Recorded By Document 06/03/22 13:52 [facility] [id number] 06/03/22 14:00 [facility] Document 06/10/22 13:31 [place] [id number] 06/10/22 13:32 [place] Document 06/17/22 11:11 DL [id number] 06/17/22 11:17 DL 06/03/22 06/10/22 06/17/22 13:52 13:31 11:11 Wound Center Nurse 1 #1- L HEEL -Combined with other wound No No -Current Size (cm) - Length 2.5 2 2.8 -Current Size (cm) - Width 2.8 2 2.2 -Current Size (cm) - Depth 0.2 0.1 0.2 -Total Square Cm 7.00 4 6.16 -Date of Last Picture (Recall this 06/03/22 field) -Photo Taken Yes No No -Epithelialization None Present -Tunneling No No -Undermining/Tunneling No No -Circular Undermining No No -Exudate Amt Medium Medium Small -Exudate Type Serosanguineous Serosanguineous Serosanguineous -Wound Margin Distinct, Distinct, Distinct, Outline Outline Outline Attached Attached Attached -Granulation Amt Medium (34-66%) Large (67-100%) None Present (0 %) -Granulation Quality [place] -Slough/Fibrin Yes Yes -Necrosis Amt Medium (34-66%) Small (1-33%) Large (67-100%) -Necrotic Tissue Type Adherent Slough Adherent Slough Adherent Slough -Structure Exposed N/A N/A -Texture (Sammi-wound Skin Appearance) Assessed,Callus No Abnormality, Localized Edema ,Scarring Assessed ,Scarring -Moisture (Sammi-wound Skin Appearance) Assessed,Dry/ No Abnormality, No Abnormality Scaly Assessed -Color (Sammi-wound Skin Appearance) Assessed No Abnormality, Erythema Assessed -Temperature (Sammi-wound Skin No Abnormality No Abnormality No Abnormality Appearance) (Pt Warm) (Pt Warm) (Pt Warm) -Tenderness on Palpation (Sammi-wound No Yes No Skin Appearance) -Ulcer Cleansing Rinsed/ Rinsed/ Rinsed/ Irrigated with Irrigated with Irrigated with Saline Saline Saline -Foul Odor after Cleansing No No -Anesthetic Used 5% Lidocaine 5% Lidocaine 5% Lidocaine Gel Gel Gel Lower Limb Edema Present Yes No Left Calf (cm) 42.5 42 Left Ankle (cm) 31.2 29 - Nurse 2 - General Ulcer CM Notes Start: 06/03/22 13:52 Freq: Status: Active Protocol: Activity Type Activity Date Activity User E-sign Co-sign Detail Recorded Client Recorded Date Recorded By Document 06/03/22 15:35 [id number] 06/03/22 15:36 Document 06/10/22 13:39 [id number] 06/10/22 13:42 Document 06/17/22 11:43 [id number] 06/17/22 11:48 PL 06/03/22 06/10/22 06/17/22 15:35 13:39 11:43 Wound Center Nurse 2 #1- L HEEL -Time 14:05 13:40 11:28 -Correct Patient Yes Yes Yes -Correct Side, Site, Position Yes Yes Yes -Correct Procedure Yes Yes Yes -Procedure Performed Yes Yes Yes -Type of Procedure Debridement Debridement Debridement -Clinical Debridement Subcutaneous Subcutaneous Subcutaneous -Tissue Removed Subcutaneous Subcutaneous Subcutaneous -Post Debridement (cm) - Length 2.5 2.1 2.8 -Post Debridement (cm) - Width 2.8 2.1 2.2 -Post Debridement (cm) - Depth 0.2 0.1 0.2 -Total Square (Post) (cm) 7.00 4.41 6.16 -Area of Debridement (cm) - Length 2.5 2.1 2.8 -Area of Debridement (cm) - Width 2.8 2.1 2.2 -Total Square (Area) (cm) 7.00 4.41 6.16 -Tunneling No No No -Undermining/Tunneling No No No -Circular Undermining No No No -Wound/Ulcer Outcome Not Healed Not Healed Not Healed -Ulcer Cleansing Rinsed/ Rinsed/ Rinsed/ Irrigated with Irrigated with Irrigated with Saline Saline Saline -Foul Odor after Cleansing No No No -Bioengineered Tissue No No Yes -Type of Bioengineered Tissue Epifix Mesh -Expiration Date 07/30/26 -Product Lot Number [id number] -Percent Used 100 -Bleeding Controlled with Pressure Pressure Pressure -Treatment Response Procedure Procedure Procedure Tolerated Well Tolerated Well Tolerated Well -Offloading Yes -Type of Offloading Surgical Shoe -Debridement - Subq, 1st 20sq cm Yes Yes Yes -Epifix Mesh (per sq cm) 11 Pain Scale: 0-10 Numeric Is Patient Pain Free? Yes Yes Yes WC - Nurse 3 - General Ulcer D/C NN Start: 06/03/22 13:52 Freq: Status: Active Protocol: Activity Type Activity Date Activity User E-sign Co-sign Detail Recorded Client Recorded Date Recorded By Document 06/03/22 14:27 [facility] [id number] 06/03/22 14:28 [facility] Document 06/10/22 13:59 [place] [id number] 06/10/22 14:00 [place] Document 06/17/22 11:48 DL [id number] 06/17/22 11:49 DL 06/03/22 06/10/22 06/17/22 14:27 13:59 11:48 Wound Care Nurse 3 #1- L HEEL -Ulcer Cleansing Rinsed/ Rinsed/ Rinsed/ Irrigated with Irrigated with Irrigated with Saline Saline Saline -Foul Odor after Cleansing No No No -Negative Pressure Wound Therapy N/A -Primary Dressing Applied Other C Hydrogel ($) -Other Dressing HYDROGEL Epifix -Primary Dressing Covered/Secured with Dry Gauze & Dry Gauze & Dry Gauze & Roll Gauze, Roll Gauze, Roll Gauze, Secured with Secured with Secured with Tape,Other Tape Tape -Other Covering HEEL HAT Left -Lotion applied to leg before No compression wrap -Tubular Bandage Single Layer Double Layer Single Layer -Size of Tubigrip Used Size E Size F Size F -Size E ($) 1 -Size F ($) 2 1 Treatment Response Procedure Procedure Tolerated Well Tolerated Well Pain Scale: 0-10 Numeric Is Patient Pain Free? Yes No Yes WC - Visit Discharge Discharge Condition Stable Stable Stable Ambulatory Status Wheelchair Ambulatory Wheelchair Transportation Private Auto Private Auto Private Auto Accompanied by Medication Reconcilliation completed & Yes provided to patient/care provider Clinical Summary of Care Provided Yes Facility Type Home Health Orders Sent Yes Assessment/Plan Assessment/Plan (1) Type 2 diabetes mellitus with foot ulcer: CODE(S): E11.621 - Type 2 diabetes mellitus with foot ulcer; L97.509 - Non-pressure chronic ulcer of other part of unspecified foot with unspecified severity (2) Difficulty in walking: CODE(S): R26.2 - Difficulty in walking, not elsewhere classified (3) Non-pressure chronic ulcer of other part of left foot with fat layer exposed: CODE(S): L97.522 - Non-pressure chronic ulcer of other part of left foot with fat layer exposed (4) Cellulitis of left lower limb: CODE(S): L03.116 - Cellulitis of left lower limb PLAN: resolved (5) Other specified peripheral vascular diseases: CODE(S): I73.89 - Other specified peripheral vascular diseases (6) Venous insufficiency (chronic) (peripheral): CODE(S): I87.2 - Venous insufficiency (chronic) (peripheral) (7) Localized edema: CODE(S): R60.0 - Localized edema (8) Type 2 diabetes mellitus with diabetic polyneuropathy: CODE(S): E11.42 - Type 2 diabetes mellitus with diabetic polyneuropathy (9) Chronic malnutrition: CODE(S): E46 - Unspecified protein-calorie malnutrition PLAN: Plan I reviewed and discussed his case today. Debridement was performed today as noted in the clinical panel to all of the ulcer sites. The following work up and care recommendations were made: Dressing: To keep secondary dressing clean, dry, and intact until follow-up next week. Tissue growth optimization: I recommend application of advanced wound healing product, epifix. The indications, benefits, anticipated management and course were reviewed in detail today. He has been treated with comprehensive standard wound healing program this past month and would benefit from this treatment. This is medically necessary for limb and life salvage. Prior authorization was achieved. Verbal consent was obtained. This was applied according standard protocol and he tolerated it well. A secondary dressing was applied including a wound veil Steri-Strips and gauze. To keep clean, dry and intact until follow- up next week. Offload: A prescription for offloading cam walker boot with dual density Plastizote liners with a pocket to take pressure off the heel ulcer was ordered today. This was completed however he has significant walking impairment and was unable to lift his leg safely. He uses a roller walker. I recommended a physical therapy referral for deconditioning prevention, gait and transfer training. He was encouraged to continue with the program this is imperative for him to keep pressure off of his ulcer site and to prevent further deconditioning. Vascular: Abnormal blood flow studies noted. To follow up with vascular referral to Dr. Julian. Prior intervention noted. He continues on plavix. He is noncompressible vessels and EKTA was not calculated. His toe brachial index on the left side is 0.22 and I do not recommend total contact cast application until adequate perfusion is confirmed. Edema: Ok to use single layer tubigrip. Venous doppler with reflux was ordered to assess for insufficiency. He was encouraged to get this scheduled. Infection: Cellulitis lala resolved. Prior culture w/ staph haemolyticus and coag neg staph and negative for MRSA. He completed course of antibiotics. diagnostics were reviewed rom last admission. on 05/16/22 esr 27 and crp 12.8. blood culture neg from 05/15/22. He completed course of levaquin daily for one week. Xray without soft tissue emphysema, fracture, foreign body or charcot. Pain: controlled due to neuropathic status. Host factors: He has diabetes and A1c was 8.2%. To improve to optimize healing. I recommend f/u with pcp, Dr. Brown. He was recently seen and lift chair, functional capacity evaluation and physical therapy was ordered. To take nutrional supplements such as Aubrey for healing optimization. I answered all the patient's questions. To return to the wound healing center in 1 week or call sooner if the patient has any questions or concerns. Note: [employer] speech recognition barrel leveler software was used to create portions of this document. Sound-alike and misspelled words, as well as other barrel leveler errors may be contained in the documentation.
[2022-06-24 11:06] VITALS: BP 139/63; PULSE 76; RESP 24; TEMP 37.1; BMI 41.1
--- NOTE | 2022-06-24 13:15 | PN.PCM_ITS ---
History of Present Illness Date of Service: 06/24/22 Chief Complaint: left foot ulcer History of Wound: This 62-year-old male with significant past medical history of diabetes with neuropathy peripheral vascular disease, debility, prior PEG tube (not current), arrhythmia, restrictive airway disease, history of heart failure and cardiac stent placement, hypertension, GERD, sleep apnea and mood disorder is following up today from the hospital for a left foot ulcer. He relates the onset of the ulcer was 05-13-2022 after a blister occurred. He was treated for cellulitis with IV and then oral antibiotics during recent [facility] admission. He was referred to see vascular specialist after having abnormal arterial findings in which he did not proceed forward with yet. He did not start taking nutritional supplementation after he was discharged home as advised. He recently saw his primary care physician and was referred to physical therapy for a functional capacity evaluation and to try to get a lift chair. He denies redness, odor, fever, chill, nausea, vomiting. He fell again today and was a little late to his appointment. Progress of Wound: Deteriorated ulcer quality Objective Data Objective Data Vital Signs: Vital Signs Temp Pulse Resp BP O2 Del Method O2 Flow Rate 98.7 F 76 24 H 139/63 H Room Air 4 06/24/22 11:06 06/24/22 11:06 06/24/22 11:06 06/24/22 11:06 06/03/22 13:52 05/29/22 00:50 Oxygen Flow Rate (L/min) 4 Oxygen Delivery Method Room Air Weight: 130.181 kg Body Mass Index (BMI) 41.1 Physical Exam Const no apparent distress General Appearance: cooperative Extremity Extremity Narrative: No calf tenderness left Left no bogginess or fluctuance on palpation or palpable abscess or mass No pain response with palpation to ulcer of the plantar lateral heel, left Compartments remain soft to palpate to the left lower extremity General Extremity: edema and no tenderness to palpation of joints or extremities; Negative for cyanosis Skin Skin Narrative: Ulcer plantar left heel with improvement with granular base and central necrotic fibrous plug some eschar formation this week without deep tissue exposure. No purulence, erythema streaking or odor. Mild serosanguineous drainage noted. His skin is hairless and atrophic. There is no maceration or deep tissue exposure or necrosis Neuro Neuro Narrative: lack of normal epicritic sensation via light touch is consistent with neuropathy status Psych cooperative and affect normal Debridement Note Debridement Note Wound debrided: plantar heel Laterality: Left Wound Grade/Stage: 1 Type of Debridement: Excisional debridement Anesthesia Used: 4% Lidocaine Solution Depth: in the subcutaneous layer Percentage of wound debrided: 100 Instrument Used: #15 blade Tissue Removed: fibrous, devitalized subcutaneous, biofilm, slough Severity: Fat Layer Exposed Amount of bleeding with debridement: Mild Bleeding Controlled with: Pressure Patient tolerated procedure: Patient tolerated procedure well Debridement Free Text: Post-Debridement Measurements and Additional Note: Post-Debridement Measurements/Treatment - Nurse 1 - General Ulcer Assessment Start: 06/03/22 13:52 Freq: Status: Active Protocol: MAGDYMapidyBernardo Activity Type Activity Date Activity User E-sign Co-sign Detail Recorded Client Recorded Date Recorded By Document 06/03/22 13:52 [facility] [id number] 06/03/22 14:00 [facility] Document 06/10/22 13:31 AK [id number] 06/10/22 13:32 AK Document 06/17/22 11:11 DL [id number] 06/17/22 11:17 DL Document 06/24/22 11:06 DL [id number] 06/24/22 11:14 DL 06/03/22 06/10/22 06/17/22 13:52 13:31 11:11 - Today's Visit Information Type of service Follow-up Visit Follow-up Visit Follow-up Visit (Physician/LABOR REPRESENTATIVE (Physician/LABOR REPRESENTATIVE (Physician/LABOR REPRESENTATIVE ) ) ) Arrival Mode Wheelchair Wheelchair Wheelchair Transfer Assistance Other None Manual Transfer Assist (Other) 1 MAX x2 Accompanied by Patient Identification Verified (Name & Yes Yes Yes ) Patient Requires Transmission-Based No No Precautions Safety Precautions NA Finger Stick Blood Sugar(mg/dl) (if not checked indicated): Blood Sugar Stated by Patient Height and Weight Body Mass Index (BMI) 41.1 41.1 41.1 BMI Classification Obese Obese Obese Vital Signs Temperature (97.8 F-99.1 F) 97 F L 97.9 F 98.3 F Temperature Source Temporal Temporal Temporal Pulse Rate (60-100) 80 88 88 Pulse Location Monitor Monitor Monitor Respiratory Rate (12-18) 16 24 H Respiratory rate source Observation Observation Oxygen Delivery Method Room Air Blood Pressure (90/60-120/80) 133/62 H 168/69 H 148/72 H Blood Pressure Mean (mm Hg) 85 102 97 Source Monitor Monitor Monitor Position Sitting Blood Pressure Location Left Arm History Since Last Visit- (Skip if this is Patient's initial visit) Have you changed medications since your No No No last visit? Any new allergies or adverse reactions No No No Had a fall/change in ADL's that may No No No increase risk of falls Signs or symptoms of abuse and/or No No No neglect since last visit Have you been in the hospital since your No No No last visit? Has dressing in place as prescribed Yes Yes Yes Has compression in place as prescribed Yes Yes Yes Has offloadiing in place as prescribed Yes Yes Yes Experienced any changes in pain level or No No No management Left Footwear Surgical Shoe Regular Shoe Removable Cast with pressure Walker/Walking relief insole Boot Right Footwear Regular Shoe Regular Shoe Pain Scale: 0-10 Numeric Is Patient Pain Free? Yes Yes Yes 06/24/22 11:06 WC - Today's Visit Information Type of service Follow-up Visit (Physician/LABOR REPRESENTATIVE ) Arrival Mode Wheelchair Transfer Assistance Manual Transfer Assist (Other) x2 Accompanied by Patient Identification Verified (Name & Yes ) Patient Requires Transmission-Based No Precautions Safety Precautions Finger Stick Blood Sugar(mg/dl) (if 230 indicated): Blood Sugar Stated by Patient Height and Weight Body Mass Index (BMI) 41.1 BMI Classification Obese Vital Signs Temperature (97.8 F-99.1 F) 98.7 F Temperature Source Temporal Pulse Rate (60-100) 76 Pulse Location Monitor Respiratory Rate (12-18) 24 H Respiratory rate source Observation Oxygen Delivery Method Blood Pressure (90/60-120/80) 139/63 H Blood Pressure Mean (mm Hg) 88 Source Monitor Position Blood Pressure Location History Since Last Visit- (Skip if this is Patient's initial visit) Have you changed medications since your No last visit? Any new allergies or adverse reactions No Had a fall/change in ADL's that may No increase risk of falls Signs or symptoms of abuse and/or No neglect since last visit Have you been in the hospital since your No last visit? Has dressing in place as prescribed No Has compression in place as prescribed Yes Has offloadiing in place as prescribed Yes Experienced any changes in pain level or No management Left Footwear Removable Cast Walker/Walking Boot Right Footwear Pain Scale: 0-10 Numeric Is Patient Pain Free? Yes WC - Nurse 1 - General Ulcer Measurement Start: 06/03/22 13:52 Freq: Status: Active Protocol: Activity Type Activity Date Activity User E-sign Co-sign Detail Recorded Client Recorded Date Recorded By Document 06/03/22 13:52 BM [id number] 06/03/22 14:00 BM Document 06/10/22 13:31 AK [id number] 06/10/22 13:32 AK Document 06/17/22 11:11 DL [id number] 06/17/22 11:17 DL Document 06/24/22 11:06 DL [id number] 06/24/22 11:14 DL 06/03/22 06/10/22 06/17/22 13:52 13:31 11:11 Wound Center Nurse 1 #1- L HEEL -Combined with other wound No No -Current Size (cm) - Length 2.5 2 2.8 -Current Size (cm) - Width 2.8 2 2.2 -Current Size (cm) - Depth 0.2 0.1 0.2 -Total Square Cm 7.00 4 6.16 -Date of Last Picture (Recall this 06/03/22 field) -Photo Taken Yes No No -Epithelialization None Present -Tunneling No No -Undermining/Tunneling No No -Circular Undermining No No -Exudate Amt Medium Medium Small -Exudate Type Serosanguineous Serosanguineous Serosanguineous -Wound Margin Distinct, Distinct, Distinct, Outline Outline Outline Attached Attached Attached -Granulation Amt Medium (34-66%) Large (67-100%) None Present (0 %) -Granulation Quality [place] -Slough/Fibrin Yes Yes -Necrosis Amt Medium (34-66%) Small (1-33%) Large (67-100%) -Necrotic Tissue Type Adherent Slough Adherent Slough Adherent Slough -Structure Exposed N/A N/A -Texture (Sammi-wound Skin Appearance) Assessed,Callus No Abnormality, Localized Edema ,Scarring Assessed ,Scarring -Moisture (Sammi-wound Skin Appearance) Assessed,Dry/ No Abnormality, No Abnormality Scaly Assessed -Color (Sammi-wound Skin Appearance) Assessed No Abnormality, Erythema Assessed -Temperature (Sammi-wound Skin No Abnormality No Abnormality No Abnormality Appearance) (Pt Warm) (Pt Warm) (Pt Warm) -Tenderness on Palpation (Sammi-wound No Yes No Skin Appearance) -Ulcer Cleansing Rinsed/ Rinsed/ Rinsed/ Irrigated with Irrigated with Irrigated with Saline Saline Saline -Foul Odor after Cleansing No No -Anesthetic Used 5% Lidocaine 5% Lidocaine 5% Lidocaine Gel Gel Gel Lower Limb Edema Present Yes No Left Calf (cm) 42.5 42 Left Ankle (cm) 31.2 29 06/24/22 11:06 Wound Center Nurse 1 #1- L HEEL -Combined with other wound -Current Size (cm) - Length 3 -Current Size (cm) - Width 2.8 -Current Size (cm) - Depth 0.2 -Total Square Cm 8.4 -Date of Last Picture (Recall this field) -Photo Taken No -Epithelialization -Tunneling -Undermining/Tunneling -Circular Undermining -Exudate Amt Medium -Exudate Type Serosanguineous -Wound Margin Distinct, Outline Attached -Granulation Amt Medium (34-66%) -Granulation Quality [place] -Slough/Fibrin -Necrosis Amt Medium (34-66%) -Necrotic Tissue Type Adherent Slough -Structure Exposed -Texture (Sammi-wound Skin Appearance) Scarring -Moisture (Sammi-wound Skin Appearance) Maceration,Dry/ Scaly -Color (Sammi-wound Skin Appearance) No Abnormality -Temperature (Sammi-wound Skin No Abnormality Appearance) (Pt Warm) -Tenderness on Palpation (Sammi-wound Skin Appearance) -Ulcer Cleansing Not Cleansed -Foul Odor after Cleansing No -Anesthetic Used 5% Lidocaine Gel Lower Limb Edema Present Left Calf (cm) 42.3 Left Ankle (cm) 29 - Nurse 2 - General Ulcer CM Notes Start: 06/03/22 13:52 Freq: Status: Active Protocol: Activity Type Activity Date Activity User E-sign Co-sign Detail Recorded Client Recorded Date Recorded By Document 06/03/22 15:35 PL [id number] 06/03/22 15:36 PL Document 06/10/22 13:39 [id number] 06/10/22 13:42 Document 06/17/22 11:43 PL [id number] 06/17/22 11:48 PL Edit Result 06/17/22 11:43 PL (1) [id number] 06/18/22 14:39 PL Document 06/24/22 11:21 JF [id number] 06/24/22 11:29 JF (1) #1- L HEEL - Apply Skin Sub - 1st 25 sq cm - Feet => 1 06/03/22 06/10/22 06/17/22 15:35 13:39 11:43 Wound Center Nurse 2 #1- L HEEL -Time 14:05 13:40 11:28 -Correct Patient Yes Yes Yes -Correct Side, Site, Position Yes Yes Yes -Correct Procedure Yes Yes Yes -Procedure Performed Yes Yes Yes -Type of Procedure Debridement Debridement Debridement -Clinical Debridement Subcutaneous Subcutaneous Subcutaneous -Tissue Removed Subcutaneous Subcutaneous Subcutaneous -Post Debridement (cm) - Length 2.5 2.1 2.8 -Post Debridement (cm) - Width 2.8 2.1 2.2 -Post Debridement (cm) - Depth 0.2 0.1 0.2 -Total Square (Post) (cm) 7.00 4.41 6.16 -Area of Debridement (cm) - Length 2.5 2.1 2.8 -Area of Debridement (cm) - Width 2.8 2.1 2.2 -Total Square (Area) (cm) 7.00 4.41 6.16 -Tunneling No No No -Undermining/Tunneling No No No -Circular Undermining No No No -Wound/Ulcer Outcome Not Healed Not Healed Not Healed -Ulcer Cleansing Rinsed/ Rinsed/ Rinsed/ Irrigated with Irrigated with Irrigated with Saline Saline Saline -Foul Odor after Cleansing No No No -Bioengineered Tissue No No Yes -Type of Bioengineered Tissue Epifix Mesh -Expiration Date 07/30/26 -Product Lot Number [id number] -Percent Used 100 -Bleeding Controlled with Pressure Pressure Pressure -Treatment Response Procedure Procedure Procedure Tolerated Well Tolerated Well Tolerated Well -Offloading Yes -Type of Offloading Surgical Shoe -Debridement - Subq, 1st 20sq cm Yes Yes Yes -Apply Skin Sub - 1st 25 sq cm - Feet 1 -Epifix Mesh (per sq cm) 11 Pain Scale: 0-10 Numeric Is Patient Pain Free? Yes Yes Yes 06/24/22 11:21 Wound Center Nurse 2 #1- L HEEL -Time 11:22 -Correct Patient Yes -Correct Side, Site, Position Yes -Correct Procedure Yes -Procedure Performed Yes -Type of Procedure Debridement -Clinical Debridement Subcutaneous -Tissue Removed Subcutaneous -Post Debridement (cm) - Length 3.0 -Post Debridement (cm) - Width 2.9 -Post Debridement (cm) - Depth 0.2 -Total Square (Post) (cm) 8.70 -Area of Debridement (cm) - Length 3.0 -Area of Debridement (cm) - Width 2.9 -Total Square (Area) (cm) 8.70 -Tunneling No -Undermining/Tunneling No -Circular Undermining No -Wound/Ulcer Outcome Not Healed -Ulcer Cleansing Rinsed/ Irrigated with Saline -Foul Odor after Cleansing No -Bioengineered Tissue No -Type of Bioengineered Tissue -Expiration Date -Product Lot Number -Percent Used -Bleeding Controlled with Pressure -Treatment Response Procedure Tolerated Well -Offloading Yes -Type of Offloading Camwalker -Debridement - Subq, 1st 20sq cm Yes -Apply Skin Sub - 1st 25 sq cm - Feet -Epifix Mesh (per sq cm) Pain Scale: 0-10 Numeric Is Patient Pain Free? Yes WC - Nurse 3 - General Ulcer D/C NN Start: 06/03/22 13:52 Freq: Status: Active Protocol: Activity Type Activity Date Activity User E-sign Co-sign Detail Recorded Client Recorded Date Recorded By Document 06/03/22 14:27 [facility] [id number] 06/03/22 14:28 [facility] Document 06/10/22 13:59 MA [id number] 06/10/22 14:00 MA Document 06/17/22 11:48 DL [id number] 06/17/22 11:49 DL 06/03/22 06/10/22 06/17/22 14:27 13:59 11:48 Wound Care Nurse 3 #1- L HEEL -Ulcer Cleansing Rinsed/ Rinsed/ Rinsed/ Irrigated with Irrigated with Irrigated with Saline Saline Saline -Foul Odor after Cleansing No No No -Negative Pressure Wound Therapy N/A -Primary Dressing Applied Other C Hydrogel ($) -Other Dressing HYDROGEL Epifix -Primary Dressing Covered/Secured with Dry Gauze & Dry Gauze & Dry Gauze & Roll Gauze, Roll Gauze, Roll Gauze, Secured with Secured with Secured with Tape,Other Tape Tape -Other Covering HEEL HAT Left -Lotion applied to leg before No compression wrap -Tubular Bandage Single Layer Double Layer Single Layer -Size of Tubigrip Used Size E Size F Size F -Size E ($) 1 -Size F ($) 2 1 Treatment Response Procedure Procedure Tolerated Well Tolerated Well Pain Scale: 0-10 Numeric Is Patient Pain Free? Yes No Yes WC - Visit Discharge Discharge Condition Stable Stable Stable Ambulatory Status Wheelchair Ambulatory Wheelchair Transportation Private Auto Private Auto Private Auto Accompanied by Medication Reconcilliation completed & Yes provided to patient/care provider Clinical Summary of Care Provided Yes Facility Type Home Health Orders Sent Yes Assessment/Plan Assessment/Plan (1) Type 2 diabetes mellitus with foot ulcer: CODE(S): E11.621 - Type 2 diabetes mellitus with foot ulcer; L97.509 - Non-pressure chronic ulcer of other part of unspecified foot with unspecified severity (2) Difficulty in walking: CODE(S): R26.2 - Difficulty in walking, not elsewhere classified (3) Non-pressure chronic ulcer of other part of left foot with fat layer exposed: CODE(S): L97.522 - Non-pressure chronic ulcer of other part of left foot with fat layer exposed (4) Cellulitis of left lower limb: CODE(S): L03.116 - Cellulitis of left lower limb PLAN: resolved (5) Other specified peripheral vascular diseases: CODE(S): I73.89 - Other specified peripheral vascular diseases (6) Venous insufficiency (chronic) (peripheral): CODE(S): I87.2 - Venous insufficiency (chronic) (peripheral) (7) Localized edema: CODE(S): R60.0 - Localized edema (8) Type 2 diabetes mellitus with diabetic polyneuropathy: CODE(S): E11.42 - Type 2 diabetes mellitus with diabetic polyneuropathy (9) Chronic malnutrition: CODE(S): E46 - Unspecified protein-calorie malnutrition PLAN: Plan I reviewed and discussed his case today. Debridement was performed today as noted in the clinical panel to all of the ulcer sites. The following work up and care recommendations were made: Dressing: To keep secondary dressing clean, dry, and intact until follow-up next week. Tissue growth optimization: I recommend application of advanced wound healing product, epifix. But first I recommend reduction of fibrous and eschar tissue. Santyl was prescribed and he was applied advised on proper use. Will consider resuming epi fix application upon improvement. Offload: A prescription for offloading cam walker boot with dual density Plastizote liners with a pocket to take pressure off the heel ulcer was ordered today. This was completed however he has significant walking impairment and was unable to lift his leg safely. He uses a roller walker. I recommended a physical therapy referral for deconditioning prevention, gait and transfer training. He was encouraged to continue with the program this is imperative for him to keep pressure off of his ulcer site and to prevent further deconditioning. It is noted he has had difficulty with therapy fall and I recommend he continues work with therapy in a modified manner. Vascular: Abnormal blood flow studies noted. To follow up with vascular referral to Dr. Julian. Prior intervention noted. He continues on plavix. He is noncompressible vessels and EKTA was not calculated. His toe brachial index on the left side is 0.22 and I do not recommend total contact cast application until adequate perfusion is confirmed. Edema: Ok to use single layer tubigrip. Venous doppler with reflux was ordered to assess for insufficiency. He was encouraged to get this scheduled. Infection: Cellulitis lala resolved. Prior culture w/ staph haemolyticus and coag neg staph and negative for MRSA. He completed course of antibiotics. diagnostics were reviewed rom last admission. on 05/16/22 esr 27 and crp 12.8. blood culture neg from 05/15/22. He completed course of levaquin daily for one week. Xray without soft tissue emphysema, fracture, foreign body or charcot. Pain: controlled due to neuropathic status. Host factors: He has diabetes and A1c was 8.2%. To improve to optimize healing. I recommend f/u with pcp, Dr. Brown. He was recently seen and lift chair, functional capacity evaluation and physical therapy was ordered. To take nutrional supplements such as Aubrey for healing optimization. I answered all the patient's questions. To return to the wound healing center in 1 week or call sooner if the patient has any questions or concerns. Note: [employer] speech recognition shipping team leader software was used to create portions of this document. Sound-alike and misspelled words, as well as other shipping team leader errors may be contained in the documentation.
== END 2022-06-28 23:59 | disposition home or self-care (01) ==
LOC: WC 10:30
PROVIDERS: PCP Internal Medicine; Visit Provider Podiatrist
DX: E11.621 Type 2 diabetes mellitus with foot ulcer (principal); E11.51 Type 2 diabetes mellitus with diabetic peripheral angiopathy without gangrene; L97.422 Non-pressure chronic ulcer of left heel and midfoot with fat layer exposed; L97.522 Non-pressure chronic ulcer of other part of left foot with fat layer exposed; E11.42 Type 2 diabetes mellitus with diabetic polyneuropathy; L03.116 Cellulitis of left lower limb; R60.0 Localized edema; R26.2 Difficulty in walking, not elsewhere classified; K21.9 Gastro-esophageal reflux disease without esophagitis; G47.30 Sleep apnea, unspecified; Z95.5 Presence of coronary angioplasty implant and graft
CPT/HCPCS: 11042; 15275; Q4186

== ENCOUNTER 2022-06-29 10:53 | Outpatient (RCR) | payer MEDICARE, MEDICAID, SELFPAY ==
--- NOTE | 2022-07-01 10:10 | HP.OTFCE_ITS ---
Comments: determination of Physical demand level was not performed as it is indicated in Dr. note from 05/24/22 Patient states that he would like to have a lift chair for better mobility and transfers. Becoming increasingly difficult in his current wheelchair and recliner.to stand. Referred to physical therapy for functional capacity evaluation. Duration Sedentary Sedentary Light Light Light Medium Medium Medium Heavy Very Heavy Heavy Occasional (0-33% of day) Frequent (34-66% of day) Constant (67-100% of day) 10 # Negligible Negligible 15 # 8 # Negligible 20 # 10# Negli. 35 # 18 # 7 # 50 # 25 # 10 # 75 # 100 # >100 # 38 # 50 # >50 # 15 # 20 # >20 # Weight:: 120.202 kg Medical History Including Restrictions: pt was hospitalized about 4 weeks ago and when he returned home he did get home therapy- receiving home therapy but due to open wound the d/c home therapy. they therapy staff did give him seated exercise for the time being doing exercise 2x a day. pt ambulates with rollator with touch toe only. pt was having silent aspiration casing aspiration pneumonia this was the cause for his hospitalization. pt going to wound center for 4 weeks trying to get wound to close. pt in walking boot touch toe only-. states pt has been non active for about 6 months- prior to recreant pneumonia he could walk about three blocks without a rollator-. pt sleeps in recliner and family assist pt in siting to standing ( and son). pt has shower chair, bed side commode, rollator, ww, standard cane. Diagnoses: Ambulates with cane. Amputation of one or more toes. Anxiety and depression. Arrhythmia. Arthritis. Aspiration into airway. Aspiration pneumonia. Atherosclerotic heart disease of [place] coronary artery without angina pectoris. Bilateral leg weakness. Blind left eye. Blister (nonthermal), left foot, initial encounter. Bronchiectasis with (acute) exacerbation. Cardiology follow-up encounter. Chronic cough. Chronic respiratory failure with hypoxia. COPD (chronic obstructive pulmonary disease). CPAP (continuous positive airway pressure) dependence. Debility, unspecified. Depression. Diabetes. Essential hypertension. Gastric reflux. GERD (gastroesophageal reflux disease). High cholesterol. History of aspiration pneumonia. History of echocardiogram. History of edema. History of gout. History of heart attack. History of non-ST elevation myocardial infarction (NSTEMI) (08/2016). History of pain when walking. History of steroid therapy. History of stress test. Hyperglycemia due to type 2 diabetes mellitus. Hypertension. Insulin dependent diabetes mellitus. Kidney stones. Leg pain, right. Leukocytosis. Memory impairment. Migraines. Mood disorder. Non- smoker. On home oxygen therapy. Peripheral vascular occlusive disease. Pneumonia. Prostate disease. Pulmonary nodule, left. Right ankle pain. Shortness of breath on exertion. Silent aspiration. Sleep apnea. Tremor. Type 2 diabetes mellitus. Type 2 diabetes mellitus with diabetic polyneuropathy. Ulcer of left foot, limited to breakdown of skin. Vision loss of left eye. Wears glasses. Wound of left lower extremity Symptoms: pain. weakness. fatigue. depression. anxiety. incontinences with urination Pain: pt has increase pain with movement. pt currently states pain 7-8/10 in his legs. Work History: retired 2007 and on disability ADLS: pt lives with his and son in a one story home with no entry steps- assist pt with all bathing and dressing. pts states shower is small step but with help of both her and son they can get him in the shower- more difficulty getting him up off shower chair. pt sleeps in recliner and family assist pt in siting to standing ( and son). pt stays in recliner for meals. pt has shower chair, bed side commode, rollator, ww, standard cane - has a transport chair but this is to heavy for to move around. pt is MAX assist with both and son when attempting to stand from seated positions. pt has fallen last week 3x and had to call the squad for assistance for getting him up off the floor. Physical Examination: pt arrives in wc with 4 liters O2. pt demo weakness of UB limiting use of UB with sit-stand tsf. pt demo walling boot on left LE. shoe on right LE ROM: pt demo UB ROM WFL LB hip knee limited due to pain ( but pt had recent fall x 3 in last 7 days) Strength: pt demo with generalized weakness of UB and LB increasing need of assistance from caregivers for safe treansfers from chair to w/c or up ambulation of short distance -. MMT UB 4-/5. MMT LB 4-/5. scale is indicated a good- strength but due to pts weight he demo weakness of UB and LB needing assistance for standing from family Right Orchard Manager Strength Average: 63.33 Left Orchard Manager Strength Average: 46.66 Right Lateral Pinch Average: 4.00 Left Lateral Pinch Average: 2.00 Right Tripod Pinch Average: 3.33 Left Tripod Pinch Average: 2.00 Fine Motor: pt dependent for buttons, zippers and cuts food for him but can feed self with spills Balance: poor falls x 3 last 7 days increase fall risk. functional reach >6 Sitting: pt sitting in WC on 4 liters of O2. transfer sit to stand with use of arms pt required mod A from therapist indicating weakness of arms and legs to lift self safely from seat position- when pt was asked to sit he sat with poor control. Comments: physical demand level not tested. sent for lift chair assessment because he is on a waver program and having difficulty in walking
--- NOTE | 2022-07-01 10:11 | HP.OTFCE.D ---
FCE D/C Summary - Discharge REA HANNA was seen for a one time visit for an FCE on 06/29/22 and is discharged.
== END 2022-06-29 19:00 | disposition home or self-care (01) ==
LOC: OT 10:53
PROVIDERS: PCP Internal Medicine; Referring Provider Nurse Practitioner Family; Visit Provider Nurse Practitioner Family
DX: R26.2 Difficulty in walking, not elsewhere classified (principal)
CPT/HCPCS: 97750

== ENCOUNTER 2022-07-01 17:07 | Observation (INO) | payer MEDICARE, MEDICAID, SELFPAY ==
[2022-07-01 17:09] VITALS: BP 158/73; PULSE 70; RESP 18; TEMP 36.9; O2SAT 98; BMI 43.9
--- NOTE | 2022-07-01 17:43 | EKG12_ITS ---
Test Reason : fall Blood Pressure : / mmHG Vent. Rate : 074 BPM Atrial Rate : 074 BPM P-R Int : 248 ms QRS Dur : 096 ms QT Int : 438 ms P-R-T Axes : 074 004 031 degrees QTc Int : 486 ms Sinus rhythm with marked sinus arrhythmia with 1st degree A-V block Incomplete right bundle branch block Prolonged QT Abnormal ECG Confirmed by ROLAND JOHNS, FAUSTINA ([id number]), health editor SHARAN DOE ([id number]) on 07/02/2022 1:26:17 PM Referred By: Confirmed By:FAUSTINA WATKINS MD
--- NOTE | 2022-07-01 18:20 | EX.ED.DYSGE1 ---
HPI History of Present Illness Chief Complaint: Weakness Informant: patient Narrative Narrative: Patient is a 62-year-old male with extensive medical history including coronary artery disease, GERD, hypertension, peripheral vascular disease, debility, diabetes mellitus, restrictive airway disease on 5 L of oxygen at baseline and chronic ulcer to the left foot that is currently undergoing wound care through our hospital presenting with generalized weakness. Patient has had 3 falls over the past 2 weeks. Patient will walk and then just get weak and fall to the ground. Patient apparently has had EMS out for lift assist over the past few weeks but finally came to the emergency room today for further evaluation of this. Patient states he was trying to walk when he just kind of crumpled to the ground and was weak. He denies seeing his head. He does have bruising on his back/right flank from prior falls. He denies any injuries today. Denies any new focal weakness. notes he has had increased urinary frequency for the past few days. Patient currently sees Dr. De Luna for his heel wound and has home health that comes out once a week and an aide that comes out 5 days a week. [facility] Medical History Ambulates with cane Amputation of one or more toes Anxiety and depression Arrhythmia Arthritis Aspiration into airway Aspiration pneumonia Atherosclerotic heart disease of [place] coronary artery without angina pectoris Bilateral leg weakness Blind left eye Blister (nonthermal), left foot, initial encounter Bronchiectasis with (acute) exacerbation Cardiology follow-up encounter Chronic cough Chronic respiratory failure with hypoxia COPD (chronic obstructive pulmonary disease) CPAP (continuous positive airway pressure) dependence Debility, unspecified Depression Diabetes Essential hypertension Gastric reflux GERD (gastroesophageal reflux disease) High cholesterol History of aspiration pneumonia History of echocardiogram History of edema History of gout History of heart attack History of non-ST elevation myocardial infarction (NSTEMI) (08/2016) History of pain when walking History of steroid therapy History of stress test Hyperglycemia due to type 2 diabetes mellitus Hypertension Insulin dependent diabetes mellitus Kidney stones Leg pain, right Leukocytosis Memory impairment Migraines Mood disorder Non-smoker On home oxygen therapy Peripheral vascular occlusive disease Pneumonia Prostate disease Pulmonary nodule, left Right ankle pain Shortness of breath on exertion Silent aspiration Sleep apnea Tremor Type 2 diabetes mellitus Type 2 diabetes mellitus with diabetic polyneuropathy Ulcer of left foot, limited to breakdown of skin Vision loss of left eye Wears glasses Wound of left lower extremity Home Medications acetaminophen 500 mg tablet 1,000 mg PO QHS PRN PRN Pain 1-10 Or Fever 02/11/21 [History Last Taken 05/14/22 18:50 1000] aspirin 81 mg tablet,delayed release (Adult Aspirin Regimen) 81 mg PO DAILY heart health 11/05/21 [History Last Taken 05/14/22 10:00] spironolactone 25 mg tablet 40 mg PO DAILY diuretic 11/08/21 [History Last Taken Unknown] peg [id number] 1 %-0.2 %-0.2 % eye drops (Artificial Tears ([id number])) 2 drp EACH EYE Q1H PRN DRY EYES #0 mL 11/14/21 [Rx Last Taken Unknown] nitroglycerin 0.4 mg sublingual tablet 0.4 mg sublingual Q5M PRN Chest Pain #30 tabs 11/25/21 [Rx Last Taken Unknown] gauze bandage 4 X 4 sponge (Curity Gauze) #1 ea 11/27/21 [Rx Last Taken Unknown] atorvastatin 80 mg tablet 80 mg PO QHS cholesterol #90 tabs 01/09/22 [Rx Last Taken 05/13/22 23:00] finasteride 5 mg tablet 5 mg PO DAILY prostate #90 tabs 01/09/22 [Rx Last Taken Unknown] furosemide 40 mg tablet 40 mg PO DAILY fluid #90 tabs 01/09/22 [Rx Last Taken Unknown] albuterol sulfate 90 mcg/actuation aerosol inhaler 2 puff inhalation Q4H PRN shortness of breath or wheezing #8.5 grams 02/04/22 [Rx Last Taken Unknown] pantoprazole 20 mg tablet,delayed release 20 mg PO DAILY gerd 02/04/22 [History Last Taken Unknown] carvedilol 12.5 mg tablet 12.5 mg PO BID heart #180 tabs 02/05/22 [Rx Last Taken Unknown] buspirone 7.5 mg tablet 7.5 mg PO TID mood #90 tabs 03/09/22 [Rx Last Taken 05/14/22 10:00] fluoxetine 20 mg capsule 20 mg PO DAILY depression #90 caps 03/09/22 [Rx Last Taken Unknown] fluoxetine 40 mg capsule 40 mg PO DAILY depression #90 caps 03/09/22 [Rx Last Taken Unknown] syringe, ENFit, non-sterile 60 mL (Piston Syringe with ENFit) #30 ea 03/20/22 [Rx Last Taken Unknown] alprazolam 0.5 mg tablet 0.5 mg PO BID anxiety 03/21/22 [History Last Taken 05/14/22 10:00] losartan 50 mg tablet 50 mg PO DAILY bp 03/21/22 [History Last Taken Unknown] clopidogrel 75 mg tablet 75 mg PO DAILY blood thinner #90 tabs 03/30/22 [Rx Last Taken Unknown] isosorbide mononitrate 30 mg tablet,extended release 24 hr 30 mg PO DAILY heart #90 tabs 03/30/22 [Rx Last Taken Unknown] low-sodium #1 ea 04/23/22 [Rx Last Taken Unknown] gauze bandage 4 X 4 (Bordered Gauze) #14 ea 05/07/22 [Rx Last Taken Unknown] amlodipine 5 mg tablet 5 mg PO DAILY bp 05/21/22 [History Last Taken Unknown] loratadine 10 mg tablet (Allergy Relief (loratadine)) 10 mg PO DAILY 05/21/22 [History Last Taken Unknown] trazodone 100 mg tablet 100 mg PO QHS 05/21/22 [History Last Taken Unknown] insulin detemir U-100 100 unit/mL (3 mL) subcutaneous pen 44 unit (0.44 mL) subcut QHS dm #15 mL 05/26/22 [Rx Last Taken Unknown] insulin lispro 100 unit/mL subcutaneous pen 1 sliding scale dose subcut 5X/DAY dm 05/27/22 [History Last Taken Unknown] insulin lispro 100 unit/mL subcutaneous pen 12 unit (0.12 mL) subcut 5X/DAY 3 months #54 mL 06/09/22 [Rx Last Taken Unknown] metoclopramide HCl 5 mg tablet (Reglan) 5 mg PO TID #30 tabs 06/09/22 [Rx Last Taken Unknown] pregabalin 75 mg capsule (Lyrica) 75 mg PO BID nerve pain #60 caps 06/09/22 [Rx Last Taken Unknown] collagenase clostridium histo. 250 unit/gram topical ointment 1 applic topical DAILY #30 grams 06/24/22 [Rx Last Taken Unknown] Allergy/AdvReac Type Severity Reaction Status Date / Time allopurinol AdvReac Vomiting Verified 05/27/22 13:36 Influenza Virus Vaccines AdvReac Vomiting Verified 05/27/22 13:36 pneumococcal vaccine AdvReac Vomiting Verified 05/27/22 13:36 Family History Mother Diabetes Heart disease CHF Father Heart disease [place]/CAD Myocardial infarction Surgical History H/O lithotripsy History of angioplasty of peripheral vessel (2016) History of angioplasty of peripheral vessel History of ankle surgery History of cardiac catheterization History of coronary artery stent placement (08/2016) History of coronary artery stent placement History of esophagogastroduodenoscopy (EGD) History of left heart catheterization (11/15/17) History of thyroid surgery Hx of lithotripsy Hx of surgery to heart and great vessels, presenting hazards to health Hx of surgical procedure Hx of thyroidectomy Hx of toe surgery Hx of toe surgery PEG (percutaneous endoscopic gastrostomy) status Social History household members: spouse housing: apartment Smoking Status: Never smoker alcohol intake: never substance use type: does not use ROS ROS ED Constitutional Constitutional ED: Denies chills or fever(s) Eyes Eyes: Denies change in vision or diplopia ENT ENT ED: Denies rhinorrhea or sore throat Cardiovascular Cardiovascular: Denies chest pain or palpitations Respiratory/Chest Respiratory/Chest: Denies cough or dyspnea Gastrointestinal Gastrointestinal: Denies abdominal pain, nausea or vomiting Genitourinary Genitourinary ED: Reports urinary frequency; Denies dysuria Musculoskeletal Musculoskeletal: Reports back pain; Denies arthralgias or myalgias Integumentary Denies Abrasions or rash Neurologic Neurologic: Reports weakness; Denies headache(s) or paresthesias Psychiatric Psychiatric: Denies anxiety Hematologic/Lymphatic Hematologic/Lymphatic: Denies easy bleeding or easy bruising EXAM Physical Exam Const Vital Signs: 07/01/22 17:09 07/01/22 17:23 07/01/22 17:57 Temperature 98.4 F Temperature Source Temporal Pulse Rate 70 Respiratory Rate 18 Respiratory Pattern Normal Blood Pressure 158/73 H Blood Pressure Mean 101 Pulse Ox 98 Oxygen Delivery Method Nasal Cannula Nasal Cannula Oxygen Flow Rate (L/min) 5 5 Fraction of Inspired Oxygen (FIO2) 95 Positive well nourished, well developed and obese General Appearance ED: well developed and NAD Nutritional Appearance: obese HEENT Reports TM's clear and dry mucous membranes Negative for trauma or tenderness Tympanic Membrane ED: Yes TM's clear Mouth ED: Yes dry mucous membranes Mouth: dry mucous membranes Eyes PERRL and EOMs intact bilaterally Neck supple and no JVD Chest Wall inspection of chest normal and palpation of chest normal Resp normal respiratory effort and clear to auscultation bilaterally Cardio regular rate, regular rhythm and no murmurs GI normal to inspection, nondistended, normoactive bowel sounds and non-tender Extremity Extremity Narrative: chornic wound with dressing- left foot. General Extremety ED: Yes edema General Extremity: edema Neuro oriented x3, CN's II-XII intact bilaterally and no sensory deficits noted Sensorium / Orientation: alert Motor Exam: strength 5/5 throughout and general weakness Psych mental status grossly normal Skin no rashes or lesions noted Skin Narrative: Ecchymosis noted to right lower back around the level of L4 3 cm ulcerated lesion on the left heel with overlying scab/eschar. No drainage appreciated. No surrounding cellulitic changes. MDM MDM MDM Narrative Medical decision making narrative: Patient's evaluate for generalized weakness as well as multiple falls. Patient has a chronic wound that he feels it has been worsening especially over the past 24 hours. He follows with wound care here/podiatry. He has known peripheral vascular disease with multiple comorbidities. Patient does not have any significant laboratory abnormalities. He has a chronic anemia which is stable. He has a chronic CKD which is stable. He has hyperglycemic however his anion gap is normal. His cardiac work-up is unremarkable. Home I am concerned that he is a worsening diabetic foot infection and that is possibly why is having increased weakness. Case is discussed with podiatry on-call, Dr. Draper, who feels that starting IV antibiotics to be appropriate. His ESR and CRP are mildly elevated. X-ray does not show any acute abnormality/free air/osteomyelitis. Patient is hesitant but eventually consents to admission for IV antibiotics. Am concerned that if he goes home he will have further falls, further injury, progression of his weakness and possible progression of his heel wound. Lab Data Attestation: I reviewed the patient's lab results. Labs: Laboratory Results - last 24 hr 07/01/22 07/01/22 07/01/22 18:10 18:10 18:10 WBC 9.9 RBC 4.01 L Hgb 11.1 L Hct 35.9 L MCV 89.5 MCH 27.7 MCHC 30.9 L RDW Std Deviation 42.6 RDW Coeff of James 13.1 Plt Count 195 MPV 11.3 Immature Gran % (Auto) 0.200 Neut % (Auto) 72.6 H Lymph % (Auto) 14.1 L [place] % (Auto) 10.5 H Eos % (Auto) 2.3 Baso % (Auto) 0.3 Absolute Neuts (auto) 7.2 Absolute Lymphs (auto) 1.40 Nucleated RBC % 0 ESR 29 H Sodium 140 Potassium 3.9 Chloride 103 Carbon Dioxide 32.0 Anion Gap 5 BUN 22 H Creatinine 1.38 H Estim Creat Clear Calc 56.57 Est GFR (MDRD) Af Amer 67 Est GFR (MDRD) Non-Af 55 L BUN/Creatinine Ratio 15.9 Glucose 265 H Calcium 9.0 Total Bilirubin 0.40 AST 18 ALT 13 L Alkaline Phosphatase 113 Troponin I High Sens 13 C-React Prot Ext Range Total Protein 7.1 Albumin 2.9 L Globulin 4.2 Albumin/Globulin Ratio 0.7 L Urine Color Urine Clarity Urine pH Ur Specific [place] Urine Protein Urine Glucose (UA) Urine Ketones Urine Occult Blood Urine Nitrite Urine Bilirubin Urine Urobilinogen Ur Leukocyte Esterase Urine RBC Urine WBC Ur Squamous Epith Cells Urine Bacteria Urine Mucus 07/01/22 07/01/22 18:10 18:25 WBC RBC Hgb Hct MCV MCH MCHC RDW Std Deviation RDW Coeff of James Plt Count MPV Immature Gran % (Auto) Neut % (Auto) Lymph % (Auto) [place] % (Auto) Eos % (Auto) Baso % (Auto) Absolute Neuts (auto) Absolute Lymphs (auto) Nucleated RBC % ESR Sodium Potassium Chloride Carbon Dioxide Anion Gap BUN Creatinine Estim Creat Clear Calc Est GFR (MDRD) Af Amer Est GFR (MDRD) Non-Af BUN/Creatinine Ratio Glucose Calcium Total Bilirubin AST ALT Alkaline Phosphatase Troponin I High Sens C-React Prot Ext Range 16.70 H Total Protein Albumin Globulin Albumin/Globulin Ratio Urine Color Yellow Urine Clarity Sl. Cloudy Urine pH 6.0 Ur Specific [place] 1.015 Urine Protein 30 H Urine Glucose (UA) 100 H Urine Ketones Negative Urine Occult Blood Negative Urine Nitrite Negative Urine Bilirubin Negative Urine Urobilinogen Normal Ur Leukocyte Esterase Negative Urine RBC 0 SEEN Urine WBC 0 SEEN Ur Squamous Epith Cells 0 SEEN Urine Bacteria 0 SEEN Urine Mucus 0 SEEN Radiography Chest X-Ray - ED: 1 View, Read by ED Physician, Read by Radiologist and No Acute Disease Diagnostic Testing: Clinical Impression(s) from Imaging Studies Brain CT 07/01/22 18:21 IMPRESSION: Chronic involutional changes of the brain. Small vessel ischemia. Electronically Signed: Eryn Wallace MD at 18:59 EDT , Chest X-Ray 07/01/22 18:43 IMPRESSION: Curvilinear opacity within the right midline may reflect thickening of the right minor fissure. Left basilar atelectasis and/or scarring. Electronically Signed: Eryn Wallace MD at 19:06 EDT , Foot X-Ray 07/01/22 20:22 IMPRESSION: 1. Lag screw fixation of medial malleolus, and fracture plane is evident. Normal alignment. 2. Mild degenerative changes in the midfoot. 3. No acute bony or joint space abnormality. Electronically Signed: Deuce Matthews MD at 20:38 EDT , Rhythm Strip Rhythm Strip: Sinus Rhythm Rate: 74 Ectopy: None EKG Initial EKG: Attestation: I personally reviewed and interpreted this EKG as follows: Interpretation: Sinus Rhythm Comments: Sinus rhythm at a rate of 74 with first-degree AV block VA interval [address] segments Incomplete right bundle branch block Prolonged QTC of 486 Discharge Plan Dx/Rx/DC Orders Clinical Impression: Debility, unspecified, Type 2 diabetes mellitus with foot ulcer, Falls frequently, Diabetic foot infection, Non healing left heel wound Disposition Disposition: Acute Care [facility] Discharge Date/Time: 07/01/22 22:04
--- NOTE | 2022-07-01 18:21 | CT_ITS ---
STUDY: CT BRAIN WITHOUT CONTRAST REASON FOR EXAM: Male, 62 years old. Fall RADIATION DOSAGE (If Supplied By Facility): CTDIvol = ( 44.99 ) mGy, DLP = ( 880.47 ) mGycm TECHNIQUE: Transaxial CT imaging of the brain was performed without administration of intravenous contrast material. Individualized dose optimization techniques were used for this CT. COMPARISON: 07/10/2021 FINDINGS: Normal soft tissue structures. Normal calvarium. There is mild cerebral atrophy with widening of the extra-axial spaces and ventricular dilatation. Normal white matter tracts of the cerebral hemispheres. Normal basal ganglia and thalami. Normal brainstem. There is mild cerebellar atrophy. There are peripheral calcifications of the visualized vertebral and internal carotid arteries. There is no intracranial hemorrhage. There are no findings of an acute ischemic infarction. Normal visualized paranasal sinuses. CT/Brain/Head without Contrast IMPRESSION: Chronic involutional changes of the brain. Small vessel ischemia. Electronically Signed: Eryn Wallace MD at 18:59 EDT ,
[2022-07-01 18:25] LABS: Absolute Neutrophil Count 7.2 X10^3/uL (2.0-7.7); Basophil# 0.03 X10^3/uL; Basophil% 0.3 % (0-1); Eosinophil# 0.23 X10^3/uL; Eosinophils% 2.3 % (0-5); Hematocrit 35.9 % (40-54); Hemoglobin 11.1 g/dL (13.0-16.5); Lymphocyte % 14.1 % (19-41); Mean Corp Hgb Conc 30.9 g/dL (32-36); Mean Corpuscular Hgb 27.7 pg (27.0-32.0); Mean Corpuscular Volume 89.5 fL (80-94); Mean Platelet Vol. 11.3 fl (6.2-12.0); Monocyte# 1.04 X10^3/uL; Monocyte% 10.5 % (0-10); NRBC Flagged by Analyzer 0 % (0-5); Neutrophil % 72.6 % (47-70); Platelet Count 195 K/mm3 (150-450); RBC Distribution Width CV 13.1 % (11.6-14.6); RBC Distribution Width SD 42.6 fl (35.1-43.9); Red Blood Count 4.01 M/mm3 (4.6-6.2); White Blood Count 9.9 K/mm3 (4.4-11.0)
[2022-07-01 18:33] LABS: Bacteria 0 SEEN /hpf (None Seen); Color, Urine Yellow (Yellow); Glucose, Dipstick 100 mg/dl (Normal); Ketone-Dipstick Negative (Negative); Leukocyte Esterase-Dipstick Negative /ul (Negative); Mucous, Urine 0 SEEN /hpf (<or=2+); Nitrite-Dipstick Negative (Negative); Occult Blood-Urine Negative /ul (Negative); Protein-Dipstick 30 mg/dl (Negative); Red Blood Cells-Urine 0 SEEN /hpf (0-5); Specific Gravity, Urine 1.015 (1.002-1.030); Squamous Epithelial Cells - UA 0 SEEN /hpf (0-5); Urine Bilirubin Dipstick Negative (Negative); Urine Clarity Sl. Cloudy (Clear); Urine Urobilinogen Normal (Normal); White Blood Cells 0 SEEN /hpf (0-5)
[2022-07-01 18:43] LABS: ALB/GLOB Ratio 0.7 RATIO (0.9-2.4); AST(SGOT) 18 U/L (15-37); Alanine Aminotransfer ALT/SGPT 13 U/L (16-61); Albumin, Serum 2.9 g/dL (3.2-5.0); Alkaline Phosphatase 113 U/L (45-117); Anion Gap 5 (5-15); BUN 22 mg/dL (7-18); BUN/Creat Ratio 15.9 RATIO (10-20); Chloride 103 mmol/L (98-107); Creatinine, Serum 1.38 mg/dL (0.70-1.30); EST Glomerular Filtration Rate 55 mL/min (>60); Est Glom Filt Rate - Afr Amer 67 mL/min (>60); Estimated Creatinine Clearance 56.57 ml/min; Globulin 4.2 g/dL (2.2-4.2); Glucose 265 mg/dL (74-106); Potassium 3.9 mmol/L (3.5-5.1); Protein, Total 7.1 g/dL (6.4-8.2); Sodium Level 140 mmol/L (136-145); Troponin-I HS 13 pg/mL (3.0-78.0)
--- NOTE | 2022-07-01 18:43 | RAD_ITS ---
STUDY: X-RAY CHEST REASON FOR EXAM: Male, 62 years old. Weakness TECHNIQUE: Single frontal view of the chest. COMPARISON: 03/20/2022 FINDINGS: There is a curvilinear opacity within the right mid lung. There are left basilar streaky opacities. There is stable elevation of the right hemidiaphragm. Normal size heart. Normal mediastinum and pat. Normal visualized pulmonary arteries. Normal visualized aortic arch and descending thoracic aorta. There are diffuse degenerative changes of the visualized thoracic spine. Normal visualized ribs, clavicles, and shoulders. There is no demonstrated abnormality of the visualized soft tissue structures of the upper abdomen. RAD/Chest 1 View (Portable) IMPRESSION: Curvilinear opacity within the right midline may reflect thickening of the right minor fissure. Left basilar atelectasis and/or scarring. Electronically Signed: Eryn Wallace MD at 19:06 EDT ,
--- NOTE | 2022-07-01 20:22 | RAD_ITS ---
INDICATION: heel wound EXAMINATION/TECHNIQUE: X-RAY - LEFT XR Foot Min 3 Views 3 VIEWS COMPARISON: None. FINDINGS: SOFT TISSUES: Soft tissues have normal appearance with the exception of medial soft tissue swelling at the level of medial malleolus. Leg screw fixation of medial malleolus is noted. Nondisplaced fracture plane is present. No radiopaque foreign body. BONES/JOINTS: Lack screw fixation of medial malleolus, fracture plane still evident. Remaining bony elements have normal alignment without acute fracture or destructive bony process. Mild degenerative changes involving the midfoot. RAD/Foot min 3 Views IMPRESSION: 1. Lag screw fixation of medial malleolus, and fracture plane is evident. Normal alignment. 2. Mild degenerative changes in the midfoot. 3. No acute bony or joint space abnormality. Electronically Signed: Deuce Matthews MD at 20:38 EDT ,
[2022-07-01 21:14] LABS: Erythrocyte Sedimentation Rate 29 mm/hr (0-20)
[2022-07-01 21:28] VITALS: BP 166/71; PULSE 56; RESP 18; TEMP 36.8; O2SAT 99
--- NOTE | 2022-07-01 21:28 | PCM.HP.STD ---
HPI - General General Date of Admission: 07/01/22 Date of Service: 07/01/22 Chief Complaint: Recurrent falls, left foot/heel ulcer -over the last few days HPI Narrative REA HANNA, is a 62 M who presents above. Patient has past medical history of type II DM complicated by peripheral neuropathy, peripheral vascular disease, gastroparesis, chronic left foot ulcer who follows up with the wound clinic. He comes in because he has been been falling. In the last 2 days he is fallen 4 times. According to his , he came to the emergency room because of recurrent falls. He denies any dizziness or palpitations or diarrhea or nausea or vomiting. He admits to just feeling weak. He states that his legs are feeling weak. Patient at baseline ambulates with a Rollator. He has been sleeping in a recliner. He also has a wheelchair Vitals in the ED showed blood pressure of 158/73, heart rate 70, respiratory 18, temperature 98.4 F, SPO2 was 98% on 5 L of oxygen. His WBC count was 9.9, hemoglobin 11.1, platelet count 195, CMP unremarkable except for BUN 22, creatinine 1.38, glucose 265 Chest X-ray showed curvilinear opacity within the right midline, left basilar atelectasis. Brain CT showed chronic involutional changes, small vessel ischemia. Arterial study done on lower extremities on 05/15/22 showed diffuse arterial calcification, noncompressiblity of vasculature multi-segmentally bilaterally, left digital brachial index of 0.22. [facility] Medical History Ambulates with cane Amputation of one or more toes Anxiety and depression Arrhythmia Arthritis Aspiration into airway Aspiration pneumonia Atherosclerotic heart disease of [place] coronary artery without angina pectoris Bilateral leg weakness Blind left eye Blister (nonthermal), left foot, initial encounter Bronchiectasis with (acute) exacerbation Cardiology follow-up encounter Chronic cough Chronic respiratory failure with hypoxia COPD (chronic obstructive pulmonary disease) CPAP (continuous positive airway pressure) dependence Debility, unspecified Depression Diabetes Essential hypertension Gastric reflux GERD (gastroesophageal reflux disease) High cholesterol History of aspiration pneumonia History of echocardiogram History of edema History of gout History of heart attack History of non-ST elevation myocardial infarction (NSTEMI) (08/2016) History of pain when walking History of steroid therapy History of stress test Hyperglycemia due to type 2 diabetes mellitus Hypertension Insulin dependent diabetes mellitus Kidney stones Leg pain, right Leukocytosis Memory impairment Migraines Mood disorder Non-smoker On home oxygen therapy Peripheral vascular occlusive disease Pneumonia Prostate disease Pulmonary nodule, left Right ankle pain Shortness of breath on exertion Silent aspiration Sleep apnea Tremor Type 2 diabetes mellitus Type 2 diabetes mellitus with diabetic polyneuropathy Ulcer of left foot, limited to breakdown of skin Vision loss of left eye Wears glasses Wound of left lower extremity Home Medications acetaminophen 500 mg tablet 1,000 mg PO QHS PRN PRN Pain 1-10 Or Fever 02/11/21 [History Last Taken 05/14/22 18:50 1000] aspirin 81 mg tablet,delayed release (Adult Aspirin Regimen) 81 mg PO DAILY heart health 11/05/21 [History Last Taken 05/14/22 10:00] spironolactone 25 mg tablet 40 mg PO DAILY diuretic 11/08/21 [History Last Taken Unknown] peg [id number] 1 %-0.2 %-0.2 % eye drops (Artificial Tears ([id number])) 2 drp EACH EYE Q1H PRN DRY EYES #0 mL 11/14/21 [Rx Last Taken Unknown] nitroglycerin 0.4 mg sublingual tablet 0.4 mg sublingual Q5M PRN Chest Pain #30 tabs 11/25/21 [Rx Last Taken Unknown] gauze bandage 4 X 4 sponge (Curity Gauze) #1 ea 11/27/21 [Rx Last Taken Unknown] atorvastatin 80 mg tablet 80 mg PO QHS cholesterol #90 tabs 01/09/22 [Rx Last Taken 05/13/22 23:00] finasteride 5 mg tablet 5 mg PO DAILY prostate #90 tabs 01/09/22 [Rx Last Taken Unknown] furosemide 40 mg tablet 40 mg PO DAILY fluid #90 tabs 01/09/22 [Rx Last Taken Unknown] albuterol sulfate 90 mcg/actuation aerosol inhaler 2 puff inhalation Q4H PRN shortness of breath or wheezing #8.5 grams 02/04/22 [Rx Last Taken Unknown] pantoprazole 20 mg tablet,delayed release 20 mg PO DAILY gerd 02/04/22 [History Last Taken Unknown] carvedilol 12.5 mg tablet 12.5 mg PO BID heart #180 tabs 02/05/22 [Rx Last Taken Unknown] buspirone 7.5 mg tablet 7.5 mg PO TID mood #90 tabs 03/09/22 [Rx Last Taken 05/14/22 10:00] fluoxetine 20 mg capsule 20 mg PO DAILY depression #90 caps 03/09/22 [Rx Last Taken Unknown] fluoxetine 40 mg capsule 40 mg PO DAILY depression #90 caps 03/09/22 [Rx Last Taken Unknown] syringe, ENFit, non-sterile 60 mL (Piston Syringe with ENFit) #30 ea 03/20/22 [Rx Last Taken Unknown] alprazolam 0.5 mg tablet 0.5 mg PO BID anxiety 03/21/22 [History Last Taken 05/14/22 10:00] losartan 50 mg tablet 50 mg PO DAILY bp 03/21/22 [History Last Taken Unknown] clopidogrel 75 mg tablet 75 mg PO DAILY blood thinner #90 tabs 03/30/22 [Rx Last Taken Unknown] isosorbide mononitrate 30 mg tablet,extended release 24 hr 30 mg PO DAILY heart #90 tabs 03/30/22 [Rx Last Taken Unknown] low-sodium #1 ea 04/23/22 [Rx Last Taken Unknown] gauze bandage 4 X 4 (Bordered Gauze) #14 ea 05/07/22 [Rx Last Taken Unknown] amlodipine 5 mg tablet 5 mg PO DAILY bp 05/21/22 [History Last Taken Unknown] loratadine 10 mg tablet (Allergy Relief (loratadine)) 10 mg PO DAILY 05/21/22 [History Last Taken Unknown] trazodone 100 mg tablet 100 mg PO QHS 05/21/22 [History Last Taken Unknown] insulin detemir U-100 100 unit/mL (3 mL) subcutaneous pen 44 unit (0.44 mL) subcut QHS dm #15 mL 05/26/22 [Rx Last Taken Unknown] insulin lispro 100 unit/mL subcutaneous pen 1 sliding scale dose subcut 5X/DAY dm 05/27/22 [History Last Taken Unknown] insulin lispro 100 unit/mL subcutaneous pen 12 unit (0.12 mL) subcut 5X/DAY 3 months #54 mL 06/09/22 [Rx Last Taken Unknown] metoclopramide HCl 5 mg tablet (Reglan) 5 mg PO TID #30 tabs 06/09/22 [Rx Last Taken Unknown] pregabalin 75 mg capsule (Lyrica) 75 mg PO BID nerve pain #60 caps 06/09/22 [Rx Last Taken Unknown] collagenase clostridium histo. 250 unit/gram topical ointment 1 applic topical DAILY #30 grams 06/24/22 [Rx Last Taken Unknown] Allergy/AdvReac Type Severity Reaction Status Date / Time allopurinol AdvReac Vomiting Verified 05/27/22 13:36 Influenza Virus Vaccines AdvReac Vomiting Verified 05/27/22 13:36 pneumococcal vaccine AdvReac Vomiting Verified 05/27/22 13:36 Family History Mother Diabetes Heart disease CHF Father Heart disease NH/CAD Myocardial infarction Surgical History H/O lithotripsy History of angioplasty of peripheral vessel (2016) History of angioplasty of peripheral vessel History of ankle surgery History of cardiac catheterization History of coronary artery stent placement (08/2016) History of coronary artery stent placement History of esophagogastroduodenoscopy (EGD) History of left heart catheterization (11/15/17) History of thyroid surgery Hx of lithotripsy Hx of surgery to heart and great vessels, presenting hazards to health Hx of surgical procedure Hx of thyroidectomy Hx of toe surgery Hx of toe surgery PEG (percutaneous endoscopic gastrostomy) status Social History household members: spouse housing: apartment Smoking Status: Never smoker alcohol intake: never substance use type: does not use ROS ROS Narrative Constitutional: Denies: Anorexia, Chills, Fever, Night Sweats, Weight Change Eyes: Denies: Blurred vision, Cataracts, Conjunctivae Inflammation, Pain, Redness, Vision Change HEENT: Denies: Difficulty Hearing, Difficulty Swallowing, Head Aches, Hearing Changes, Sinus Congestion, Sinus Drainage Cardiovascular: Denies: Chest Pain, Orthopnea, Palpitations Respiratory: Denies: Cough, Shortness of breath at rest, Sputum production Gastrointestinal: Denies: Abdominal Pain, Nausea, Vomiting Genitourinary: Denies: Dysuria Musculoskeletal: See HPI Skin: Denies: Left heel ulcer Neurological: Denies: Numbness, Tingling, Focal weakness Vital Signs Vital Signs Vital Signs: 07/01/22 17:09 07/01/22 17:23 07/01/22 17:57 Temperature 98.4 F Temperature Source Temporal Pulse Rate 70 Respiratory Rate 18 Respiratory Pattern Normal Blood Pressure 158/73 H Blood Pressure Mean 101 Pulse Ox 98 Oxygen Delivery Method Nasal Cannula Nasal Cannula Oxygen Flow Rate (L/min) 5 5 Fraction of Inspired Oxygen (FIO2) 95 Weight Weight: 138.7 kg Body Mass Index (BMI) 43.9 Physical Exam Narrative Physical exam: General: Alert, Oriented x3, Cooperative, appears unkempt, on 5 L of oxygen HEENT: Atraumatic Oral: Moist Mucosa Neck: Supple Lungs: Diminished to auscultation Cardiovascular: HS I+II, regular, no murmurs Abdomen: Bowel Sounds Present, Soft, Non Tender Extremities: Bilateral leg edema +1 Skin: Left heel chronic eschar with slight slough, fairly wet looking wound Neurological: Grossly intact Psych/Mental Status: Appropriate Results Lab / Micro Data Result Diagrams: 07/01/22 18:10 07/01/22 18:10 Labs: Laboratory Results - last 24 hr 07/01/22 18:10: WBC 9.9, RBC 4.01 L, Hgb 11.1 L, Hct 35.9 L, MCV 89.5, MCH 27.7, MCHC 30.9 L, RDW Std Deviation 42.6, RDW Coeff of James 13.1, Plt Count 195, MPV 11.3, Immature Gran % (Auto) 0.200, Neut % (Auto) 72.6 H, Lymph % (Auto) 14.1 L, [place] % (Auto) 10.5 H, Eos % (Auto) 2.3, Baso % (Auto) 0.3, Absolute Neuts (auto) 7.2, Absolute Lymphs (auto) 1.40, Nucleated RBC % 0 07/01/22 18:10: Sodium 140, Potassium 3.9, Chloride 103, Carbon Dioxide 32.0, Anion Gap 5, BUN 22 H, Creatinine 1.38 H, Estim Creat Clear Calc 56.57, Est GFR (MDRD) Af Amer 67, Est GFR (MDRD) Non-Af 55 L, BUN/Creatinine Ratio 15.9, Glucose 265 H, Calcium 9.0, Total Bilirubin 0.40, AST 18, ALT 13 L, Alkaline Phosphatase 113, Troponin I High Sens 13, Total Protein 7.1, Albumin 2.9 L, Globulin 4.2, Albumin/Globulin Ratio 0.7 L 07/01/22 18:10: ESR 29 H 07/01/22 18:10: C-React Prot Ext Range 16.70 H 07/01/22 18:25: Urine Color Yellow, Urine Clarity Sl. Cloudy, Urine pH 6.0, Ur Specific [place] 1.015, Urine Protein 30 H, Urine Glucose (UA) 100 H, Urine Ketones Negative, Urine Occult Blood Negative, Urine Nitrite Negative, Urine Bilirubin Negative, Urine Urobilinogen Normal, Ur Leukocyte Esterase Negative, Urine RBC 0 SEEN, Urine WBC 0 SEEN, Ur Squamous Epith Cells 0 SEEN, Urine Bacteria 0 SEEN, Urine Mucus 0 SEEN Radiology Impression Brain CT 07/01/22 18:21 IMPRESSION: Chronic involutional changes of the brain. Small vessel ischemia. Electronically Signed: Eryn Wallace MD at 18:59 EDT , Chest X-Ray 07/01/22 18:43 IMPRESSION: Curvilinear opacity within the right midline may reflect thickening of the right minor fissure. Left basilar atelectasis and/or scarring. Electronically Signed: Eryn Wallace MD at 19:06 EDT , Foot X-Ray 07/01/22 20:22 IMPRESSION: 1. Lag screw fixation of medial malleolus, and fracture plane is evident. Normal alignment. 2. Mild degenerative changes in the midfoot. 3. No acute bony or joint space abnormality. Electronically Signed: Deuce Matthews MD at 20:38 EDT , Assessment & Plan Assessment/Plan (1) Type 2 diabetes mellitus with foot ulcer: (2) Recurrent falls: PLAN: Plan 1. Acute on chronic left heel diabetic foot ulcer, patient follows with podiatry in the wound clinic Wound has an eschar/slough. Patient with underlying PAD of both lower extremities. Podiatry consulted, started on IV vancomycin and Zosyn, continue same Follow-up on cultures and podiatry recommendations 2. Recurrent falls, debility, acute on chronic, patient lives at home with family PT and OT to evaluate and treat Patient is unwilling to be discharged to custodial facility?asked patient to think about subacute therapy for general strengthening 3. PAD, recent vascular study on 05/15/22 showed diffuse calcification of the lower extremities. Ankle-brachial indexes could not be obtained because of vasculature was noncompressible. Left radicular brachial index was 0.2 to Continue aspirin, statin, Plavix 4. Type II DM complicated by diabetic polyneuropathy, gastroparesis Last HbA1c in April 2022 was 8.0 Continue on home insulin regimen, metoclopramide, pregabalin Blood glucose checks with insulin sliding scale 5. Hypertension, controlled, continue amlodipine, carvedilol, losartan, spironolactone 6. CKD stage III, creatinine appears to be at the baseline, 1.38.. Creatinine was 1.02 7. Chronic hypoxic respiratory failure, on same 5 L home oxygen Admitting chest x-ray showed left basilar atelectasis, curvilinear opacity right midlung area Breathing treatments prn 8. Anxiety/depression, continue fluoxetine, Xanax, trazodone 8. DVT prophylaxis?heparin subcu I discussed and explained in details the various types of CODE STATUS-full code, DNR CCA, DNR CC. Patient chose to be full code and would want aggressive cardiopulmonary resuscitation in the event of a cardiopulmonary arrest. Time spent discussing CODE STATUS 16 minutes Charges/Coding Visit Charges Inpatient E&M: 71077 Init Hosp L3 Procedures Hospitalists Procedures: 12185 Advncd Care Plan 30 Min
[2022-07-01 22:20] VITALS: BMI 41.5
[2022-07-01 22:27] VITALS: BP 190/65; PULSE 58; RESP 18; TEMP 36.6; O2SAT 100
[2022-07-01] MEDS: Acetaminophen 500 MG Tablet 1000 MG PO (23:08)
[2022-07-01] MEDS: Carvedilol 12.5 MG Tablet PO (23:48)
[2022-07-01] MEDS: Atorvastatin Calcium 80 MG Tablet PO (23:48)
[2022-07-01] MEDS: Metoclopramide 5 MG TABLET PO (23:48)
[2022-07-01] MEDS: Insulin Glargine-YFGN 100 UNIT/ML Pen 44 UNIT SC (23:48)
[2022-07-01] MEDS: traZODone 100 MG Tablet PO (23:48)
[2022-07-01] MEDS: busPIRone 5 MG Tablet 7.5 MG PO (23:48)
[2022-07-01] MEDS: Insulin Lispro 100 UNIT/ML INSULN.PEN SC (23:49)
[2022-07-01 23:50] LABS: Bedside Glucose 202 mg/dL (74-106)
[2022-07-01] MEDS: Pregabalin 75 MG Capsule PO (23:57)
--- NOTE | 2022-07-02 | PCM.RX.CS ---
Consult Pharmacy has been consulted to manage selected antiobiotic: Vancomycin Type of Consult: New start Suspected Infection: Skin/Soft tissue Prior Doses of Antibiotics Received/Current Regimen: Medications Vancomycin HCl 1,750 mg/ (Sodium Chloride) 535 mls @ 250 mls/hr IV Q12H ISHAN Discontinued Medications Vancomycin HCl 2,000 mg/ (Sodium Chloride) 540 mls @ 250 mls/hr IV X1 ONE Stop: 07/01/22 22:28 Last Admin: 07/01/22 21:27 Dose: 250 mls/hr Labs: Sodium 140 mmol/L (136-145) 07/01/22 18:10 Potassium 3.9 mmol/L (3.5-5.1) 07/01/22 18:10 Chloride 103 mmol/L (98-107) 07/01/22 18:10 Carbon Dioxide 32.0 mmol/L (21.0-32.0) 07/01/22 18:10 Anion Gap 5 (5-15) 07/01/22 18:10 BUN 22 mg/dL (7-18) H 07/01/22 18:10 Creatinine 1.38 mg/dL (0.70-1.30) H 07/01/22 18:10 Est GFR (MDRD) Af Amer 67 mL/min (>60) 07/01/22 18:10 Est GFR (MDRD) Non-Af 55 mL/min (>60) L 07/01/22 18:10 BUN/Creatinine Ratio 15.9 RATIO (10-20) 07/01/22 18:10 Glucose 265 mg/dL (74-106) H 07/01/22 18:10 Weight used for dosin kg Estimated Creatinine Clearance: 74.6 Goal Trough: 15-20 mcg/mL Pharmacy Plan for Drug Dosing: Pharmacy Service will continue to monitor and adjust dosing as required. Follow-Up Labs: Trough Vancomycin Labs to be done on [date and time ordered]: 07/03/22 @0900
[2022-07-02] MEDS: Lactated Ringers 1,000 ML 75 ML IV (00:01)
[2022-07-02] MEDS: busPIRone 5 MG Tablet 7.5 MG PO ×3 (05:14→21:36)
[2022-07-02] MEDS: Metoclopramide 5 MG TABLET PO ×3 (05:15→21:36)
[2022-07-02] MEDS: 0.9% Saline Lock 10 ML Syringe IV ×2 (05:17→15:34)
[2022-07-02 05:19] VITALS: BP 155/63; PULSE 50; RESP 18; TEMP 36.8; O2SAT 100
[2022-07-02 06:31] LABS: Absolute Lymphocyte Count 1.47 X10^3/uL (0.83-4.51); Basophil# 0.04 X10^3/uL; Basophil% 0.5 % (0-1); Eosinophil# 0.29 X10^3/uL; Eosinophils% 3.3 % (0-5); Hematocrit 32.5 % (40-54); Hemoglobin 10.4 g/dL (13.0-16.5); Lymphocyte # 1.47 X10^3/ul (0.83-4.51); Lymphocyte % 16.7 % (19-41); Mean Corpuscular Hgb 27.9 pg (27.0-32.0); Mean Corpuscular Volume 87.1 fL (80-94); Mean Platelet Vol. 11.4 fl (6.2-12.0); Monocyte# 0.96 X10^3/uL; Monocyte% 10.9 % (0-10); NRBC Flagged by Analyzer 0 % (0-5); Neutrophil # 6.03 X10^3/uL (2.7-7.7); Neutrophil % 68.3 % (47-70); Platelet Count 176 K/mm3 (150-450); RBC Distribution Width CV 13.1 % (11.6-14.6); RBC Distribution Width SD 41.7 fl (35.1-43.9); Red Blood Count 3.73 M/mm3 (4.6-6.2); White Blood Count 8.8 K/mm3 (4.4-11.0)
--- NOTE | 2022-07-02 06:40 | MRI_ITS ---
STUDY: MRI LEFT REARFOOT WITHOUT CONTRAST REASON FOR EXAM: Chronic left heel ulcer. TECHNIQUE: Standardized fat and water weighted pulse sequences were obtained in all 3 orthogonal planes. COMPARISON: Radiographs 06/30/2022. FINDINGS: There is an ulcer at the plantar heel pad. There is edema in the subcutis adipose space without focal fluid collection to indicate abscess. Normal posterior tibialis tendon. Normal flexor digitorum longus tendon. Normal flexor hallucis longus tendon. Normal peroneus longus and brevis tendons. Normal tibialis anterior tendon. Normal extensor hallucis longus tendon. Normal extensor digitorum longus tendons. Normal Achilles tendon and teno-osseous insertion. There is thickening of the central cord of the plantar fascia (T2 coronal image 13) suggestive of chronic plantar fasciitis. Normal plantar calcaneal tubercles. There is edema in the intrinsic muscles of the rearfoot (inversion recovery sagittal images 11-21). There is thickening of the anterior talofibular ligament (T2 axial image 21) suggestive of scarring. Normal calcaneofibular and posterior talofibular ligaments. Normal subtalar ligaments and sinus tarsi. Normal deltoid ligamentous complexes. There is orthopedic hardware in the medial malleolus. Normal tibiotalar articulation. Normal talar dome. Normal subtalar articulations. Normal talonavicular articulation. Normal calcaneocuboid articulation. There is mild arthrosis with mild chondral thinning of the navicular-cuneiform articulations (T2 axial image 21). MRI/Lower Ext/No Jt/w/o IMPRESSION: Edema in the subcutis adipose space without demonstrated osteomyelitis or soft tissue abscess. Chronic plantar fasciitis. Scarring of the anterior talofibular ligament. Edema in the intrinsic muscles of the hindfoot. Mild arthrosis of the navicular-cuneiform articulations. Electronically Signed: Odell العراقي MD at 12:45 EDT ,
[2022-07-02 06:41] LABS: ALB/GLOB Ratio 0.7 RATIO (0.9-2.4); AST(SGOT) 14 U/L (15-37); Alanine Aminotransfer ALT/SGPT 13 U/L (16-61); Albumin, Serum 2.6 g/dL (3.2-5.0); Alkaline Phosphatase 99 U/L (45-117); Anion Gap 3 (5-15); BUN 18 mg/dL (7-18); BUN/Creat Ratio 15.1 RATIO (10-20); Calcium,Total 8.4 mg/dL (8.5-10.1); Chloride 103 mmol/L (98-107); Creatinine, Serum 1.19 mg/dL (0.70-1.30); EST Glomerular Filtration Rate 66 mL/min (>60); Est Glom Filt Rate - Afr Amer 79 mL/min (>60); Globulin 3.9 g/dL (2.2-4.2); Glucose 239 mg/dL (74-106); Magnesium 2.1 mg/dL (1.6-2.6); Phosphorus 2.6 mg/dL (2.5-4.9); Potassium 3.2 mmol/L (3.5-5.1); Protein, Total 6.5 g/dL (6.4-8.2); Sodium Level 141 mmol/L (136-145)
--- NOTE | 2022-07-02 06:43 | PCM.CONS.GEN ---
Assessment & Plan Assessment/Plan (1) Non healing left heel wound: (2) Type 2 diabetes mellitus with foot ulcer: (3) Type 2 diabetes mellitus with diabetic polyneuropathy: (4) Non-pressure chronic ulcer of other part of left foot with fat layer exposed: (5) Cellulitis of left lower limb: PLAN: Plan Evaluation performed. Reviewed diagnostic data. Reviewed left foot xrays. Patient is worsening left heel ulceration. Further evaluation is indicated - MRI was ordered. Reviewed LEAS from April 2022 - PAD noted - vascular surgery will be consulted. A culture was obtained of the left heel ulceration - sent to microbiology. Patient is on Vanc/Zosyn. Wound care: betadine soln, gauze, and kerlix dressing. No immediate plans for foot surgical intervention at this time. Keep heels offloaded. No weightbearing left foot. Podiatry will continue to follow, thank you for consultation. HPI Consult Data Date of Consult: 07/02/22 HPI Narrative Reason for Consultation: Left heel ulcer HPI Narrative: REA HANNA, is a 62 M who presents with left heel ulcer. Patient came to the ER last night, he relates to frequent falls. Patient with worsening left heel ulceration, he follows at wound center. Wound care has consisted of daily dressing changes using santyl. Patient had LEAS in April 2022 and noted to have left tbi of 0.22 - otherwise has calcified vessels. Patient has diabetes with peripheral neuropathy, he relates he is blind as well. He is resting comfortably in bed - no other foot complaints. He relates he has stents in legs for circulation - he relates he is not sure who he sees from vascular - he relates he has to many doctors. Patient is afebrile. [facility] Medical History Ambulates with cane Amputation of one or more toes Anxiety and depression Arrhythmia Arthritis Aspiration into airway Aspiration pneumonia Atherosclerotic heart disease of [place] coronary artery without angina pectoris Bilateral leg weakness Blind left eye Blister (nonthermal), left foot, initial encounter Bronchiectasis with (acute) exacerbation Cardiology follow-up encounter Chronic cough Chronic respiratory failure with hypoxia COPD (chronic obstructive pulmonary disease) CPAP (continuous positive airway pressure) dependence Debility, unspecified Depression Diabetes Essential hypertension Gastric reflux GERD (gastroesophageal reflux disease) High cholesterol History of aspiration pneumonia History of echocardiogram History of edema History of gout History of heart attack History of non-ST elevation myocardial infarction (NSTEMI) (08/2016) History of pain when walking History of steroid therapy History of stress test Hyperglycemia due to type 2 diabetes mellitus Hypertension Insulin dependent diabetes mellitus Kidney stones Leg pain, right Leukocytosis Memory impairment Migraines Mood disorder Non-smoker On home oxygen therapy Peripheral vascular occlusive disease Pneumonia Prostate disease Pulmonary nodule, left Right ankle pain Shortness of breath on exertion Silent aspiration Sleep apnea Tremor Type 2 diabetes mellitus Type 2 diabetes mellitus with diabetic polyneuropathy Ulcer of left foot, limited to breakdown of skin Vision loss of left eye Wears glasses Wound of left lower extremity Home Medications acetaminophen 500 mg tablet 1,000 mg PO QHS PRN PRN Pain 1-10 Or Fever 02/11/21 [History Last Taken 05/14/22 18:50 1000] aspirin 81 mg tablet,delayed release (Adult Aspirin Regimen) 81 mg PO DAILY heart health 11/05/21 [History Last Taken 07/01/22] spironolactone 25 mg tablet 25 mg PO QHS diuretic 11/08/21 [History Last Taken 07/01/22] peg [id number] 1 %-0.2 %-0.2 % eye drops (Artificial Tears ([id number])) 2 drp EACH EYE Q1H PRN DRY EYES #0 mL 11/14/21 [Rx Last Taken Unknown] nitroglycerin 0.4 mg sublingual tablet 0.4 mg sublingual Q5M PRN Chest Pain #30 tabs 11/25/21 [Rx Last Taken Unknown] gauze bandage 4 X 4 sponge (Curity Gauze) #1 ea 11/27/21 [Rx Last Taken Unknown] atorvastatin 80 mg tablet 80 mg PO QHS cholesterol #90 tabs 01/09/22 [Rx Last Taken 06/30/22] finasteride 5 mg tablet 5 mg PO DAILY prostate #90 tabs 01/09/22 [Rx Last Taken 07/01/22] furosemide 40 mg tablet 40 mg PO DAILY fluid #90 tabs 01/09/22 [Rx Last Taken 07/01/22] albuterol sulfate 90 mcg/actuation aerosol inhaler 2 puff inhalation Q4H PRN shortness of breath or wheezing #8.5 grams 02/04/22 [Rx Last Taken Unknown] pantoprazole 20 mg tablet,delayed release 20 mg PO DAILY gerd 02/04/22 [History Last Taken 07/01/22] carvedilol 12.5 mg tablet 12.5 mg PO BID heart #180 tabs 02/05/22 [Rx Last Taken 07/01/22] buspirone 7.5 mg tablet 7.5 mg PO TID mood #90 tabs 03/09/22 [Rx Last Taken 07/01/22] fluoxetine 20 mg capsule 20 mg PO DAILY depression #90 caps 03/09/22 [Rx Last Taken 07/01/22] fluoxetine 40 mg capsule 40 mg PO DAILY depression #90 caps 03/09/22 [Rx Last Taken 07/01/22] syringe, ENFit, non-sterile 60 mL (Piston Syringe with ENFit) #30 ea 03/20/22 [Rx Last Taken Unknown] losartan 50 mg tablet 50 mg PO DAILY bp 03/21/22 [History Last Taken 07/01/22] clopidogrel 75 mg tablet 75 mg PO DAILY blood thinner #90 tabs 03/30/22 [Rx Last Taken 07/01/22] isosorbide mononitrate 30 mg tablet,extended release 24 hr 30 mg PO DAILY heart #90 tabs 03/30/22 [Rx Last Taken 07/01/22] low-sodium #1 ea 04/23/22 [Rx Last Taken Unknown] gauze bandage 4 X 4 (Bordered Gauze) #14 ea 05/07/22 [Rx Last Taken Unknown] amlodipine 5 mg tablet 5 mg PO DAILY bp 05/21/22 [History Last Taken 07/01/22] loratadine 10 mg tablet (Allergy Relief (loratadine)) 10 mg PO DAILY allergies 05/21/22 [History Last Taken 07/01/22] trazodone 100 mg tablet 100 mg PO QHS sleep 05/21/22 [History Last Taken 06/30/22] insulin detemir U-100 100 unit/mL (3 mL) subcutaneous pen 44 unit (0.44 mL) subcut QHS dm #15 mL 05/26/22 [Rx Last Taken 06/30/22] insulin lispro 100 unit/mL subcutaneous pen 1 sliding scale dose subcut 4X/DAY dm 05/27/22 [History Last Taken Unknown] pregabalin 75 mg capsule (Lyrica) 75 mg PO BID nerve pain #60 caps 06/09/22 [Rx Last Taken 07/01/22] collagenase clostridium histo. 250 unit/gram topical ointment 1 applic topical DAILY #30 grams 06/24/22 [Rx Last Taken Unknown] clonazepam 1 mg tablet 1 mg PO BID anxiety 07/02/22 [History Last Taken 07/01/22] insulin lispro 100 unit/mL subcutaneous pen 12 unit subcut ACHS diabetes 07/02/22 [History Last Taken 07/01/22] metoclopramide HCl 5 mg tablet 5 mg PO TIDCM reflux 07/02/22 [History Last Taken 07/01/22] Allergy/AdvReac Type Severity Reaction Status Date / Time allopurinol AdvReac Vomiting Verified 05/27/22 13:36 Influenza Virus Vaccines AdvReac Vomiting Verified 05/27/22 13:36 pneumococcal vaccine AdvReac Vomiting Verified 05/27/22 13:36 Family History Mother Diabetes Heart disease CHF Father Heart disease [place]/CAD Myocardial infarction Surgical History H/O lithotripsy History of angioplasty of peripheral vessel (2016) History of angioplasty of peripheral vessel History of ankle surgery History of cardiac catheterization History of coronary artery stent placement (08/2016) History of coronary artery stent placement History of esophagogastroduodenoscopy (EGD) History of left heart catheterization (11/15/17) History of thyroid surgery Hx of lithotripsy Hx of surgery to heart and great vessels, presenting hazards to health Hx of surgical procedure Hx of thyroidectomy Hx of toe surgery Hx of toe surgery PEG (percutaneous endoscopic gastrostomy) status Social History household members: spouse housing: apartment Smoking Status: Never smoker alcohol intake: never substance use type: does not use Physical Exam Const alert and no apparent distress Extremity Extremity Narrative: Left heel with ulceration down to subcutaneous tissue - there is noted to be nonviable tissue, rim of eschar/necrotic tissue, base with fibrotic tissue, there is some localized erythema around the site, no streaking, no maloder, no probe to bone, no visible abscess, no crepitus. No open wounds right foot. TMA right foot noted. Peripheral neuropathy bilateral foot. CFT < 3 seconds to toes left foot, no evidence of acute ischemia bilateral foot. No m/s POP or pain on ROM to the foot or ankle. No evidence of acute [place] neuroarthropathy bilateral. Lab / Micro Data Result Diagrams: 07/02/22 04:51 07/02/22 04:51 Labs: Laboratory Results - last 24 hr 07/01/22 18:10: WBC 9.9, RBC 4.01 L, Hgb 11.1 L, Hct 35.9 L, MCV 89.5, MCH 27.7, MCHC 30.9 L, RDW Std Deviation 42.6, RDW Coeff of James 13.1, Plt Count 195, MPV 11.3, Immature Gran % (Auto) 0.200, Neut % (Auto) 72.6 H, Lymph % (Auto) 14.1 L, [place] % (Auto) 10.5 H, Eos % (Auto) 2.3, Baso % (Auto) 0.3, Absolute Neuts (auto) 7.2, Absolute Lymphs (auto) 1.40, Nucleated RBC % 0 07/01/22 18:10: Sodium 140, Potassium 3.9, Chloride 103, Carbon Dioxide 32.0, Anion Gap 5, BUN 22 H, Creatinine 1.38 H, Estim Creat Clear Calc 56.57, Est GFR (MDRD) Af Amer 67, Est GFR (MDRD) Non-Af 55 L, BUN/Creatinine Ratio 15.9, Glucose 265 H, Calcium 9.0, Total Bilirubin 0.40, AST 18, ALT 13 L, Alkaline Phosphatase 113, Troponin I High Sens 13, Total Protein 7.1, Albumin 2.9 L, Globulin 4.2, Albumin/Globulin Ratio 0.7 L 07/01/22 18:10: ESR 29 H 07/01/22 18:10: C-React Prot Ext Range 16.70 H 07/01/22 18:25: Urine Color Yellow, Urine Clarity Sl. Cloudy, Urine pH 6.0, Ur Specific [place] 1.015, Urine Protein 30 H, Urine Glucose (UA) 100 H, Urine Ketones Negative, Urine Occult Blood Negative, Urine Nitrite Negative, Urine Bilirubin Negative, Urine Urobilinogen Normal, Ur Leukocyte Esterase Negative, Urine RBC 0 SEEN, Urine WBC 0 SEEN, Ur Squamous Epith Cells 0 SEEN, Urine Bacteria 0 SEEN, Urine Mucus 0 SEEN 07/01/22 22:55: POC Glucose 202 H 07/02/22 04:51: WBC 8.8, RBC 3.73 L, Hgb 10.4 L, Hct 32.5 L, MCV 87.1, MCH 27.9, MCHC 32.0, RDW Std Deviation 41.7, RDW Coeff of [place] 13.1, Plt Count 176, MPV 11.4, Immature Gran % (Auto) 0.300, Neut % (Auto) 68.3, Lymph % (Auto) 16.7 L, [place] % (Auto) 10.9 H, Eos % (Auto) 3.3, Baso % (Auto) 0.5, Absolute Neuts (auto) 6.0, Absolute Lymphs (auto) 1.47, Nucleated RBC % 0 07/02/22 04:51: Sodium 141, Potassium 3.2 L, Chloride 103, Carbon Dioxide 35.0 H, Anion Gap 3 L, BUN 18, Creatinine 1.19, Estim Creat Clear Calc 65.60, Est GFR (MDRD) Af Amer 79, Est GFR (MDRD) Non-Af 66, BUN/Creatinine Ratio 15.1, Glucose 239 H, Calcium 8.4 L, Phosphorus 2.6, Magnesium 2.1, Total Bilirubin 0.40, AST 14 L, ALT 13 L, Alkaline Phosphatase 99, Total Protein 6.5, Albumin 2.6 L, Globulin 3.9, Albumin/Globulin Ratio 0.7 L Rhythm Strip Rhythm Strip: Sinus Rhythm Rate: 74 Ectopy: None Radiology Impression Brain CT 07/01/22 18:21 IMPRESSION: Chronic involutional changes of the brain. Small vessel ischemia. Electronically Signed: Eryn Wallace MD at 18:59 EDT , Chest X-Ray 07/01/22 18:43 IMPRESSION: Curvilinear opacity within the right midline may reflect thickening of the right minor fissure. Left basilar atelectasis and/or scarring. Electronically Signed: Eryn Wallace MD at 19:06 EDT , Foot X-Ray 07/01/22 20:22 IMPRESSION: 1. Lag screw fixation of medial malleolus, and fracture plane is evident. Normal alignment. 2. Mild degenerative changes in the midfoot. 3. No acute bony or joint space abnormality. Electronically Signed: Deuce Matthews MD at 20:38 EDT ,
--- NOTE | 2022-07-02 07:23 | WOUNDNOTE ---
wound photo: left plantar heel
[2022-07-02 08:16] LABS: Bedside Glucose 219 mg/dL (74-106)
[2022-07-02] MEDS: Insulin Lispro 100 UNIT/ML INSULN.PEN SC ×3 (08:34→16:38)
[2022-07-02] MEDS: Insulin Lispro 100 UNIT/ML INSULN.PEN 12 UNIT SC ×3 (08:34→16:38)
[2022-07-02 09:14] LABS: M R Staph aureus DNA By PCR Negative (Negative); Probe Check PASS; Specimen Processing Control PASS; Staph aureus DNA By PCR POSITIVE (Negative)
[2022-07-02] MEDS: Aspirin E.C. 81 MG Tablet PO (09:45)
[2022-07-02] MEDS: FLUoxetine 20 MG Capsule 60 MG PO (09:51)
[2022-07-02] MEDS: Clopidogrel Bisulfate 75 MG Tablet PO (09:51)
[2022-07-02] MEDS: Finasteride 5 MG Tablet PO (09:51)
[2022-07-02] MEDS: Carvedilol 12.5 MG Tablet PO ×2 (09:52→21:36)
[2022-07-02] MEDS: amLODIPine 5 MG Tablet PO (09:52)
[2022-07-02] MEDS: Isosorbide Mononitrate 30 MG Tablet PO (09:52)
[2022-07-02] MEDS: Furosemide 40 MG Tablet PO (09:52)
[2022-07-02] MEDS: Losartan Potassium 50 MG Tablet PO (09:52)
[2022-07-02] MEDS: Loratadine 10 MG Tablet PO (09:52)
[2022-07-02] MEDS: Pantoprazole Sodium 20 MG Tablet PO (09:52)
[2022-07-02] MEDS: Acetaminophen 500 MG Tablet 1000 MG PO (09:59)
[2022-07-02] MEDS: Pregabalin 75 MG Capsule PO ×2 (09:59→21:36)
[2022-07-02 10:05] VITALS: BP 175/99; PULSE 80; RESP 18; TEMP 36.8; O2SAT 100
--- NOTE | 2022-07-02 10:09 | PCM.CONS.GEN ---
Assessment & Plan Assessment/Plan (1) Diabetic foot infection: PLAN: MRI and wound cx pending. Will narrow to vanc/unasyn for empiric coverage. Will follow, thank you (2) Type 2 diabetes mellitus with diabetic polyneuropathy: HPI Consult Data Date of Consult: 07/02/22 HPI Narrative Reason for Consultation: DM foot infection HPI Narrative: REA HANNA, is a 62 M with DM neuropathy, presented 07/01 with one month of progressive L heel pain, ulceration, redness, drainage. No fever or chills. New weakness and falls at home. No recent abx. Came to ED, admitted on vanc/zosyn. Reports small amount of drainage. Seen by podiatry, MRI planned. Full ROS performed and neg except as noted above. [facility] Medical History Ambulates with cane Amputation of one or more toes Anxiety and depression Arrhythmia Arthritis Aspiration into airway Aspiration pneumonia Atherosclerotic heart disease of [place] coronary artery without angina pectoris Bilateral leg weakness Blind left eye Blister (nonthermal), left foot, initial encounter Bronchiectasis with (acute) exacerbation Cardiology follow-up encounter Chronic cough Chronic respiratory failure with hypoxia COPD (chronic obstructive pulmonary disease) CPAP (continuous positive airway pressure) dependence Debility, unspecified Depression Diabetes Essential hypertension Gastric reflux GERD (gastroesophageal reflux disease) High cholesterol History of aspiration pneumonia History of echocardiogram History of edema History of gout History of heart attack History of non-ST elevation myocardial infarction (NSTEMI) (08/2016) History of pain when walking History of steroid therapy History of stress test Hyperglycemia due to type 2 diabetes mellitus Hypertension Insulin dependent diabetes mellitus Kidney stones Leg pain, right Leukocytosis Memory impairment Migraines Mood disorder Non-smoker On home oxygen therapy Peripheral vascular occlusive disease Pneumonia Prostate disease Pulmonary nodule, left Right ankle pain Shortness of breath on exertion Silent aspiration Sleep apnea Tremor Type 2 diabetes mellitus Type 2 diabetes mellitus with diabetic polyneuropathy Ulcer of left foot, limited to breakdown of skin Vision loss of left eye Wears glasses Wound of left lower extremity Home Medications acetaminophen 500 mg tablet 1,000 mg PO QHS PRN PRN Pain 1-10 Or Fever 02/11/21 [History Last Taken 05/14/22 18:50 1000] aspirin 81 mg tablet,delayed release (Adult Aspirin Regimen) 81 mg PO DAILY heart health 11/05/21 [History Last Taken 07/01/22] spironolactone 25 mg tablet 25 mg PO QHS diuretic 11/08/21 [History Last Taken 07/01/22] peg [id number] 1 %-0.2 %-0.2 % eye drops (Artificial Tears ([id number])) 2 drp EACH EYE Q1H PRN DRY EYES #0 mL 11/14/21 [Rx Last Taken Unknown] nitroglycerin 0.4 mg sublingual tablet 0.4 mg sublingual Q5M PRN Chest Pain #30 tabs 11/25/21 [Rx Last Taken Unknown] gauze bandage 4 X 4 sponge (Curity Gauze) #1 ea 11/27/21 [Rx Last Taken Unknown] atorvastatin 80 mg tablet 80 mg PO QHS cholesterol #90 tabs 01/09/22 [Rx Last Taken 06/30/22] finasteride 5 mg tablet 5 mg PO DAILY prostate #90 tabs 01/09/22 [Rx Last Taken 07/01/22] furosemide 40 mg tablet 40 mg PO DAILY fluid #90 tabs 01/09/22 [Rx Last Taken 07/01/22] albuterol sulfate 90 mcg/actuation aerosol inhaler 2 puff inhalation Q4H PRN shortness of breath or wheezing #8.5 grams 02/04/22 [Rx Last Taken Unknown] pantoprazole 20 mg tablet,delayed release 20 mg PO DAILY gerd 02/04/22 [History Last Taken 07/01/22] carvedilol 12.5 mg tablet 12.5 mg PO BID heart #180 tabs 02/05/22 [Rx Last Taken 07/01/22] buspirone 7.5 mg tablet 7.5 mg PO TID mood #90 tabs 03/09/22 [Rx Last Taken 07/01/22] fluoxetine 20 mg capsule 20 mg PO DAILY depression #90 caps 03/09/22 [Rx Last Taken 07/01/22] fluoxetine 40 mg capsule 40 mg PO DAILY depression #90 caps 03/09/22 [Rx Last Taken 07/01/22] syringe, ENFit, non-sterile 60 mL (Piston Syringe with ENFit) #30 ea 03/20/22 [Rx Last Taken Unknown] losartan 50 mg tablet 50 mg PO DAILY bp 03/21/22 [History Last Taken 07/01/22] clopidogrel 75 mg tablet 75 mg PO DAILY blood thinner #90 tabs 03/30/22 [Rx Last Taken 07/01/22] isosorbide mononitrate 30 mg tablet,extended release 24 hr 30 mg PO DAILY heart #90 tabs 03/30/22 [Rx Last Taken 07/01/22] low-sodium #1 ea 04/23/22 [Rx Last Taken Unknown] gauze bandage 4 X 4 (Bordered Gauze) #14 ea 05/07/22 [Rx Last Taken Unknown] amlodipine 5 mg tablet 5 mg PO DAILY bp 05/21/22 [History Last Taken 07/01/22] loratadine 10 mg tablet (Allergy Relief (loratadine)) 10 mg PO DAILY allergies 05/21/22 [History Last Taken 07/01/22] trazodone 100 mg tablet 100 mg PO QHS sleep 05/21/22 [History Last Taken 06/30/22] insulin detemir U-100 100 unit/mL (3 mL) subcutaneous pen 44 unit (0.44 mL) subcut QHS dm #15 mL 05/26/22 [Rx Last Taken 06/30/22] insulin lispro 100 unit/mL subcutaneous pen 1 sliding scale dose subcut 4X/DAY dm 05/27/22 [History Last Taken Unknown] pregabalin 75 mg capsule (Lyrica) 75 mg PO BID nerve pain #60 caps 06/09/22 [Rx Last Taken 07/01/22] collagenase clostridium histo. 250 unit/gram topical ointment 1 applic topical DAILY #30 grams 06/24/22 [Rx Last Taken Unknown] clonazepam 1 mg tablet 1 mg PO BID anxiety 07/02/22 [History Last Taken 07/01/22] insulin lispro 100 unit/mL subcutaneous pen 12 unit subcut ACHS diabetes 07/02/22 [History Last Taken 07/01/22] metoclopramide HCl 5 mg tablet 5 mg PO TIDCM reflux 07/02/22 [History Last Taken 07/01/22] Allergy/AdvReac Type Severity Reaction Status Date / Time allopurinol AdvReac Vomiting Verified 05/27/22 13:36 Influenza Virus Vaccines AdvReac Vomiting Verified 05/27/22 13:36 pneumococcal vaccine AdvReac Vomiting Verified 05/27/22 13:36 Family History Mother Diabetes Heart disease CHF Father Heart disease [place]/CAD Myocardial infarction Surgical History H/O lithotripsy History of angioplasty of peripheral vessel (2016) History of angioplasty of peripheral vessel History of ankle surgery History of cardiac catheterization History of coronary artery stent placement (08/2016) History of coronary artery stent placement History of esophagogastroduodenoscopy (EGD) History of left heart catheterization (11/15/17) History of thyroid surgery Hx of lithotripsy Hx of surgery to heart and great vessels, presenting hazards to health Hx of surgical procedure Hx of thyroidectomy Hx of toe surgery Hx of toe surgery PEG (percutaneous endoscopic gastrostomy) status Social History household members: spouse housing: apartment Smoking Status: Never smoker alcohol intake: never substance use type: does not use Physical Exam Const alert, oriented x3 and no apparent distress General Appearance: cooperative HEENT normocephalic and head/scalp atraumatic Eyes PERRL and EOMs intact bilaterally Neck supple and No nodes Resp normal air movement and clear to auscultation bilaterally Cardio regular rate and regular rhythm GI soft to palpation, non-tender and non-distended Extremity General Extremity: edema Skin Skin Narrative: Reviewed photo L heel Neuro CN's II-XII intact bilaterally Lab / Micro Data Attestation: I reviewed the patient's lab results. Result Diagrams: 07/02/22 04:51 07/02/22 04:51 Labs: Laboratory Results - last 24 hr 07/01/22 18:10: WBC 9.9, RBC 4.01 L, Hgb 11.1 L, Hct 35.9 L, MCV 89.5, MCH 27.7, MCHC 30.9 L, RDW Std Deviation 42.6, RDW Coeff of [place] 13.1, Plt Count 195, MPV 11.3, Immature Gran % (Auto) 0.200, Neut % (Auto) 72.6 H, Lymph % (Auto) 14.1 L, [place] % (Auto) 10.5 H, Eos % (Auto) 2.3, Baso % (Auto) 0.3, Absolute Neuts (auto) 7.2, Absolute Lymphs (auto) 1.40, Nucleated RBC % 0 07/01/22 18:10: Sodium 140, Potassium 3.9, Chloride 103, Carbon Dioxide 32.0, Anion Gap 5, BUN 22 H, Creatinine 1.38 H, Estim Creat Clear Calc 56.57, Est GFR (MDRD) Af Amer 67, Est GFR (MDRD) Non-Af 55 L, BUN/Creatinine Ratio 15.9, Glucose 265 H, Calcium 9.0, Total Bilirubin 0.40, AST 18, ALT 13 L, Alkaline Phosphatase 113, Troponin I High Sens 13, Total Protein 7.1, Albumin 2.9 L, Globulin 4.2, Albumin/Globulin Ratio 0.7 L 07/01/22 18:10: ESR 29 H 07/01/22 18:10: C-React Prot Ext Range 16.70 H 07/01/22 18:25: Urine Color Yellow, Urine Clarity Sl. Cloudy, Urine pH 6.0, Ur Specific [place] 1.015, Urine Protein 30 H, Urine Glucose (UA) 100 H, Urine Ketones Negative, Urine Occult Blood Negative, Urine Nitrite Negative, Urine Bilirubin Negative, Urine Urobilinogen Normal, Ur Leukocyte Esterase Negative, Urine RBC 0 SEEN, Urine WBC 0 SEEN, Ur Squamous Epith Cells 0 SEEN, Urine Bacteria 0 SEEN, Urine Mucus 0 SEEN 07/01/22 22:55: POC Glucose 202 H 07/02/22 04:51: WBC 8.8, RBC 3.73 L, Hgb 10.4 L, Hct 32.5 L, MCV 87.1, MCH 27.9, MCHC 32.0, RDW Std Deviation 41.7, RDW Coeff of [place] 13.1, Plt Count 176, MPV 11.4, Immature Gran % (Auto) 0.300, Neut % (Auto) 68.3, Lymph % (Auto) 16.7 L, [place] % (Auto) 10.9 H, Eos % (Auto) 3.3, Baso % (Auto) 0.5, Absolute Neuts (auto) 6.0, Absolute Lymphs (auto) 1.47, Nucleated RBC % 0 07/02/22 04:51: Sodium 141, Potassium 3.2 L, Chloride 103, Carbon Dioxide 35.0 H, Anion Gap 3 L, BUN 18, Creatinine 1.19, Estim Creat Clear Calc 65.60, Est GFR (MDRD) Af Amer 79, Est GFR (MDRD) Non-Af 66, BUN/Creatinine Ratio 15.1, Glucose 239 H, Calcium 8.4 L, Phosphorus 2.6, Magnesium 2.1, Total Bilirubin 0.40, AST 14 L, ALT 13 L, Alkaline Phosphatase 99, Total Protein 6.5, Albumin 2.6 L, Globulin 3.9, Albumin/Globulin Ratio 0.7 L 07/02/22 06:35: S.aureus Protein A PCR POSITIVE H, MRSA (PCR) Negative 07/02/22 07:51: POC Glucose 219 H Micro: Microbiology 07/02/22 06:35 Wound - Left Foot Gram Stain - Final Rhythm Strip Rhythm Strip: Sinus Rhythm Rate: 74 Ectopy: None Radiology Impression Brain CT 07/01/22 18:21 IMPRESSION: Chronic involutional changes of the brain. Small vessel ischemia. Electronically Signed: Eryn Wallace MD at 18:59 EDT , Chest X-Ray 07/01/22 18:43 IMPRESSION: Curvilinear opacity within the right midline may reflect thickening of the right minor fissure. Left basilar atelectasis and/or scarring. Electronically Signed: Eryn Wallace MD at 19:06 EDT , Foot X-Ray 07/01/22 20:22 IMPRESSION: 1. Lag screw fixation of medial malleolus, and fracture plane is evident. Normal alignment. 2. Mild degenerative changes in the midfoot. 3. No acute bony or joint space abnormality. Electronically Signed: Deuce Matthews MD at 20:38 EDT ,
[2022-07-02 11:36] LABS: Bedside Glucose 197 mg/dL (74-106)
--- NOTE | 2022-07-02 14:20 | CASEMGMT ---
ALICE PHOENIX in to pt room as ALICE PHOENIX made aware pt wanted to speak with his fikin regarding SNF stay. Pt sitting up in chair, fiance present in wheelchair with eyes closed and pt oneil's son present in room. Pt states they have talked about the plan and they would like for pt to go back home with the [facility] to resume except he only would like to do 10 reps of upper and lower extremity exercises and no more. Pt demonstrated these. Pt states he wants his aides to resume and he does not want a SNF as he does not want to lose his care. ALICE PHOENIX made him aware that he is currently hospitalized with a diagnosis of debility so a decrease in his HEP may not be what benefits him the most. Pt states he overtires. ALICE PHOENIX made him aware that ALICE PHOENIX will be back into room for [facility]OME[facility] form. 1435- ALICE PHOENIX back into room, pt fikin awake and states that she has concerns about pt returning home. States pt has not been able to walk for the last week which is new for him. She is afraid that he is going the wrong direction. She states her son has been a big help in pt's care but she is concerned if there was a fire that pt could not leave the home. She states she would not be able to get him out. Discussed the safety in the home and how this could be problematic. Pt states he would be agreeable to going to a SNF for a week. 1449- ALICE PHOENIX provided pt/fiance a list of SNF providers including quality and resource use data and consistent with the patient?s preferred geographic region, medical needs, and insurance network. Pt would like a half hour to review list, aware ALICE PHOENIX or [facility] will be back in room for choices.
[2022-07-02 15:43] VITALS: BP 172/73; PULSE 58; RESP 18; TEMP 36.5; O2SAT 100
--- NOTE | 2022-07-02 15:59 | CASEMGMT ---
Social Work SW met with pt and girlfriend in room and introduced self and role of SW. SW inquired about SNF choices and pt choosing 1. [facility], [address] [facility], [address] [place]. Phone call to Norma at [facility] and they do have beds available. Referral faxed to Norma. Will await determination of acceptance. Precert will be needed prior to discharge. Plan: [facility], pending acceptance and precert MINISTERIO Gallagher
--- NOTE | 2022-07-02 16:31 | PN.HOSP_ITS ---
Subjective Subjective Patient was seen and examined today, I had infectious diseases see the patient, they recommended Unasyn and vancomycin for now, patient had an MRI of his left foot which did not show evidence of osteomyelitis. I talked briefly with podiatry about his care, podiatry did not feel that he needed surgical intervention. I talk with the patient briefly today about discharge planning, he finally agreed today to go to a nursing home facility after talking with his girlfriend. Objective Data Objective Data Vital Signs: Vital Signs Temp Pulse Resp BP Pulse Ox O2 Del Method O2 Flow Rate 97.7 F L 58 L 18 172/73 H 100 Nasal Cannula 5 07/02/22 15:43 07/02/22 15:43 07/02/22 15:43 07/02/22 15:43 07/02/22 15:43 07/02/22 15:43 07/02/22 15:43 FiO2 95 07/01/22 17:57 Oxygen Flow Rate (L/min) 5 Oxygen Delivery Method Nasal Cannula Weight: 131.3 kg Body Mass Index (BMI) 41.5 Intake & Output: Intake and Output for Last 24 Hours 06/30/22 07/01/22 07/02/22 23:59 23:59 23:59 Intake Total 600 / 600 2728.75 / 2728.75 Output Total 800 / 800 1500 / 1500 Balance -200 / -200 1228.75 / 1228.75 Lab / Micro Data Result Diagrams: 07/02/22 04:51 07/02/22 04:51 Labs: Laboratory Results - last 24 hr 07/01/22 18:10: WBC 9.9, RBC 4.01 L, Hgb 11.1 L, Hct 35.9 L, MCV 89.5, MCH 27.7, MCHC 30.9 L, RDW Std Deviation 42.6, RDW Coeff of James 13.1, Plt Count 195, MPV 11.3, Immature Gran % (Auto) 0.200, Neut % (Auto) 72.6 H, Lymph % (Auto) 14.1 L, [place] % (Auto) 10.5 H, Eos % (Auto) 2.3, Baso % (Auto) 0.3, Absolute Neuts (auto) 7.2, Absolute Lymphs (auto) 1.40, Nucleated RBC % 0 07/01/22 18:10: Sodium 140, Potassium 3.9, Chloride 103, Carbon Dioxide 32.0, Anion Gap 5, BUN 22 H, Creatinine 1.38 H, Estim Creat Clear Calc 56.57, Est GFR (MDRD) Af Amer 67, Est GFR (MDRD) Non-Af 55 L, BUN/Creatinine Ratio 15.9, Gluco se 265 H, Calcium 9.0, Total Bilirubin 0.40, AST 18, ALT 13 L, Alkaline Phosphatase 113, Troponin I High Sens 13, Total Protein 7.1, Albumin 2.9 L, Globulin 4.2, Albumin/Globulin Ratio 0.7 L 07/01/22 18:10: ESR 29 H 07/01/22 18:10: C-React Prot Ext Range 16.70 H 07/01/22 18:25: Urine Color Yellow, Urine Clarity Sl. Cloudy, Urine pH 6.0, Ur Specific [place] 1.015, Urine Protein 30 H, Urine Glucose (UA) 100 H, Urine Ketones Negative, Urine Occult Blood Negative, Urine Nitrite Negative, Urine Bilirubin Negative, Urine Urobilinogen Normal, Ur Leukocyte Esterase Negative, Urine RBC 0 SEEN, Urine WBC 0 SEEN, Ur Squamous Epith Cells 0 SEEN, Urine Bacteria 0 SEEN, Urine Mucus 0 SEEN 07/01/22 22:55: POC Glucose 202 H 07/02/22 04:51: WBC 8.8, RBC 3.73 L, Hgb 10.4 L, Hct 32.5 L, MCV 87.1, MCH 27.9, MCHC 32.0, RDW Std Deviation 41.7, RDW Coeff of James 13.1, Plt Count 176, MPV 11.4, Immature Gran % (Auto) 0.300, Neut % (Auto) 68.3, Lymph % (Auto) 16.7 L, [place] % (Auto) 10.9 H, Eos % (Auto) 3.3, Baso % (Auto) 0.5, Absolute Neuts (auto) 6.0, Absolute Lymphs (auto) 1.47, Nucleated RBC % 0 07/02/22 04:51: Sodium 141, Potassium 3.2 L, Chloride 103, Carbon Dioxide 35.0 H , Anion Gap 3 L, BUN 18, Creatinine 1.19, Estim Creat Clear Calc 65.60, Est GFR (MDRD) Af Amer 79, Est GFR (MDRD) Non-Af 66, BUN/Creatinine Ratio 15.1, Glucose 239 H, Calcium 8.4 L, Phosphorus 2.6, Magnesium 2.1, Total Bilirubin 0.40, AST 14 L, ALT 13 L, Alkaline Phosphatase 99, Total Protein 6.5, Albumin 2.6 L, Globulin 3.9, Albumin/Globulin Ratio 0.7 L 07/02/22 06:35: S.aureus Protein A PCR POSITIVE H, MRSA (PCR) Negative 07/02/22 07:51: POC Glucose 219 H 07/02/22 11:05: POC Glucose 197 H Micro: Microbiology 07/02/22 06:35 Wound - Left Foot Gram Stain - Final Radiography Diagnostic Testing: Radiology Impression Brain CT 07/01/22 18:21 IMPRESSION: Chronic involutional changes of the brain. Small vessel ischemia. Electronically Signed: Eryn Wallace MD at 18:59 EDT , Chest X-Ray 07/01/22 18:43 IMPRESSION: Curvilinear opacity within the right midline may reflect thickening of the right minor fissure. Left basilar atelectasis and/or scarring. Electronically Signed: Eryn Wallace MD at 19:06 EDT , Foot X-Ray 07/01/22 20:22 IMPRESSION: 1. Lag screw fixation of medial malleolus, and fracture plane is evident. Normal alignment. 2. Mild degenerative changes in the midfoot. 3. No acute bony or joint space abnormality. Electronically Signed: Deuce Matthews MD at 20:38 EDT , Lower Extremity MRI 07/02/22 06:40 IMPRESSION: Edema in the subcutis adipose space without demonstrated osteomyelitis or soft tissue abscess. Chronic plantar fasciitis. Scarring of the anterior talofibular ligament. Edema in the intrinsic muscles of the hindfoot. Mild arthrosis of the navicular-cuneiform articulations. Electronically Signed: Odell العراقي MD at 12:45 EDT , Rhythm Strip Rhythm Strip: Sinus Rhythm Rate: 74 Ectopy: None Physical Exam Const alert, oriented x3 and no apparent distress Constitutional Narrative: Patient appears older than stated age General Appearance: cooperative, well kempt and well developed Orientation / Consciousness: awake, oriented to person, oriented to place and oriented to time HEENT normocephalic, head/scalp atraumatic and moist oral mucous membranes Eyes PERRL, EOMs intact bilaterally and conjunctivae normal Neck supple, no JVD, thyroid normal and no carotid bruits General: trachea midline Resp normal respiratory effort, no retractions, no use of accessory muscles and clear to auscultation bilaterally Auscultation: Negative for rales, rhonchi or wheezes Cardio regular rate, regular rhythm, S1 normal heart sound, S2 normal heart sound, no murmurs, no rub and no gallops GI normal to inspection, nondistended, normoactive bowel sounds, soft to palpation, non-tender and non-distended GI Narrative: Patient is morbidly obese Skin Skin Narrative: Patient's left foot was wrapped with surgical dressing, this was not removed for inspection of the area Neuro oriented x3, CN's II-XII intact bilaterally, moves all extremities and no focal motor deficits Sensorium / Orientation: awake and alert Speech: speech normal Psych Psych Narrative: Patient has a flat affect Assessment & Plan Assessment/Plan (1) Falls frequently: PLAN: Plan 1. Acute on chronic debility secondary to multiple medical problems including type 2 diabetes, peripheral neuropathy, peripheral vascular disease, and chronic left foot ulceration secondary to diabetic neuropathy-PT and OT will continue to see the patient, he will need at least short-term placement of nursing home facility. #2 left heel ulceration secondary to diabetic neuropathy-patient will continue on Unasyn and vancomycin for now, I will talk with infectious diseases tomorrow about antibiotic coverage given that the patient has no sign of osteomyelitis. #3 type 2 diabetes-patient's blood sugars will be monitored, sliding scale insulin will be administered #4 peripheral vascular disease-complicates care, management, recovery, and prognosis #5 chronic depression-patient will be continued on his home medication (Prozac, BuSpar, Klonopin) #6 neuropathy secondary to type 2 diabetes-complicates care, management, recovery, prognosis #7 coronary artery disease-patient is currently on Plavix, carvedilol, and aspirin #8 chronic obstructive pulmonary disease-patient is on albuterol aerosols as needed #9 chronic hypoxic respiratory failure-patient is on nasal cannula oxygen, pulse ox will be monitored #10 essential hypertension-patient will remain on his current home medications Charges/Coding Visit Charges OBSV E&M: 84371 Subsequent observation care L3
--- NOTE | 2022-07-02 16:35 | CON.PCM_ITS ---
Assessment & Plan Assessment/Plan (1) Non healing left heel wound: PLAN: 1. PAD. Duplex is pending. We will plan for an angiogram with intervention next Wednesday. Continue current treatment. We will need to be on a Plavix postoperatively. HPI Consult Data Date of Consult: 07/02/22 HPI Narrative Reason for Consultation: PAD HPI Narrative: REA HANNA, is a 62 M who presents with left heel wound and PAD. He has had previous bilateral femoral stenting at [facility]. Does not appear he is had any follow-up. No recent testing. He is due for ultrasound tomorrow. He had ABIs in April 2022 that showed bilateral biphasic flow but noncompressible throughout. He has been a longstanding diabetic. Vascular surgery consulted for the evaluation of the PAD. Coronary stents. No stroke. Quit smoking age 20. Hypertension on meds. He has been diabetic for years. Hyperlipidemia on a statin. He is on Plavix. PAD as above. [facility] Medical History Ambulates with cane Amputation of one or more toes Anxiety and depression Arrhythmia Arthritis Aspiration into airway Aspiration pneumonia Atherosclerotic heart disease of [place] coronary artery without angina pectoris Bilateral leg weakness Blind left eye Blister (nonthermal), left foot, initial encounter Bronchiectasis with (acute) exacerbation Cardiology follow-up encounter Chronic cough Chronic respiratory failure with hypoxia COPD (chronic obstructive pulmonary disease) CPAP (continuous positive airway pressure) dependence Debility, unspecified Depression Diabetes Essential hypertension Gastric reflux GERD (gastroesophageal reflux disease) High cholesterol History of aspiration pneumonia History of echocardiogram History of edema History of gout History of heart attack History of non-ST elevation myocardial infarction (NSTEMI) (08/2016) History of pain when walking History of steroid therapy History of stress test Hyperglycemia due to type 2 diabetes mellitus Hypertension Insulin dependent diabetes mellitus Kidney stones Leg pain, right Leukocytosis Memory impairment Migraines Mood disorder Non-smoker On home oxygen therapy Peripheral vascular occlusive disease Pneumonia Prostate disease Pulmonary nodule, left Right ankle pain Shortness of breath on exertion Silent aspiration Sleep apnea Tremor Type 2 diabetes mellitus Type 2 diabetes mellitus with diabetic polyneuropathy Ulcer of left foot, limited to breakdown of skin Vision loss of left eye Wears glasses Wound of left lower extremity Home Medications acetaminophen 500 mg tablet 1,000 mg PO QHS PRN PRN Pain 1-10 Or Fever 02/11/21 [History Last Taken 05/14/22 18:50 1000] aspirin 81 mg tablet,delayed release (Adult Aspirin Regimen) 81 mg PO DAILY heart health 11/05/21 [History Last Taken 07/01/22] spironolactone 25 mg tablet 25 mg PO QHS diuretic 11/08/21 [History Last Taken 07/01/22] peg [id number] 1 %-0.2 %-0.2 % eye drops (Artificial Tears (pg400 -hypromell-glycerin)) 2 drp EACH EYE Q1H PRN DRY EYES #0 mL 11/14/21 [Rx Last Taken Unknown] nitroglycerin 0.4 mg sublingual tablet 0.4 mg sublingual Q5M PRN Chest Pain #30 tabs 11/25/21 [Rx Last Taken Unknown] gauze bandage 4 X 4 sponge (Curity Gauze) #1 ea 11/27/21 [Rx Last Taken Unknown] atorvastatin 80 mg tablet 80 mg PO QHS cholesterol #90 tabs 01/09/22 [Rx Last Taken 06/30/22] finasteride 5 mg tablet 5 mg PO DAILY prostate #90 tabs 01/09/22 [Rx Last Taken 07/01/22] furosemide 40 mg tablet 40 mg PO DAILY fluid #90 tabs 01/09/22 [Rx Last Taken 07/01/22] albuterol sulfate 90 mcg/actuation aerosol inhaler 2 puff inhalation Q4H PRN shortness of breath or wheezing #8.5 grams 02/04/22 [Rx Last Taken Unknown] pantoprazole 20 mg tablet,delayed release 20 mg PO DAILY gerd 02/04/22 [History Last Taken 07/01/22] carvedilol 12.5 mg tablet 12.5 mg PO BID heart #180 tabs 02/05/22 [Rx Last Taken 07/01/22] buspirone 7.5 mg tablet 7.5 mg PO TID mood #90 tabs 03/09/22 [Rx Last Taken 07/01/22] fluoxetine 20 mg capsule 20 mg PO DAILY depression #90 caps 03/09/22 [Rx Last Taken 07/01/22] fluoxetine 40 mg capsule 40 mg PO DAILY depression #90 caps 03/09/22 [Rx Last Taken 07/01/22] syringe, ENFit, non-sterile 60 mL (Piston Syringe with ENFit) #30 ea 03/20/22 [Rx Last Taken Unknown] losartan 50 mg tablet 50 mg PO DAILY bp 03/21/22 [History Last Taken 07/01/22] clopidogrel 75 mg tablet 75 mg PO DAILY blood thinner #90 tabs 03/30/22 [Rx Last Taken 07/01/22] isosorbide mononitrate 30 mg tablet,extended release 24 hr 30 mg PO DAILY heart #90 tabs 03/30/22 [Rx Last Taken 07/01/22] low-sodium #1 ea 04/23/22 [Rx Last Taken Unknown] gauze bandage 4 X 4 (Bordered Gauze) #14 ea 05/07/22 [Rx Last Taken Unknown] amlodipine 5 mg tablet 5 mg PO DAILY bp 05/21/22 [History Last Taken 07/01/22] loratadine 10 mg tablet (Allergy Relief (loratadine)) 10 mg PO DAILY allergies 05/21/22 [History Last Taken 07/01/22] trazodone 100 mg tablet 100 mg PO QHS sleep 05/21/22 [History Last Taken 06/30/22] insulin detemir U-100 100 unit/mL (3 mL) subcutaneous pen 44 unit (0.44 mL) subcut QHS dm #15 mL 05/26/22 [Rx Last Taken 06/30/22] insulin lispro 100 unit/mL subcutaneous pen 1 sliding scale dose subcut 4X/DAY dm 05/27/22 [History Last Taken Unknown] pregabalin 75 mg capsule (Lyrica) 75 mg PO BID nerve pain #60 caps 06/09/22 [Rx Last Taken 07/01/22] collagenase clostridium histo. 250 unit/gram topical ointment 1 applic topical DAILY #30 grams 06/24/22 [Rx Last Taken Unknown] clonazepam 1 mg tablet 1 mg PO BID anxiety 07/02/22 [History Last Taken 07/01/22] insulin lispro 100 unit/mL subcutaneous pen 12 unit subcut ACHS diabetes 07/02/22 [History Last Taken 07/01/22] metoclopramide HCl 5 mg tablet 5 mg PO TIDCM reflux 07/02/22 [History Last Taken 07/01/22] Allergy/AdvReac Type Severity Reaction Status Date / Time allopurinol AdvReac Vomiting Verified 05/27/22 13:36 Influenza Virus Vaccines AdvReac Vomiting Verified 05/27/22 13:36 pneumococcal vaccine AdvReac Vomiting Verified 05/27/22 13:36 Family History Mother Diabetes Heart disease CHF Father Heart disease [place]/CAD Myocardial infarction Surgical History H/O lithotripsy History of angioplasty of peripheral vessel (2017) History of angioplasty of peripheral vessel History of ankle surgery History of cardiac catheterization History of coronary artery stent placement (08/2016) History of coronary artery stent placement History of esophagogastroduodenoscopy (EGD) History of left heart catheterization (11/15/17) History of thyroid surgery Hx of lithotripsy Hx of surgery to heart and great vessels, presenting hazards to health Hx of surgical procedure Hx of thyroidectomy Hx of toe surgery Hx of toe surgery PEG (percutaneous endoscopic gastrostomy) status Social History household members: spouse housing: apartment Smoking Status: Never smoker alcohol intake: never substance use type: does not use ROS ROS Narrative All negative what able to be obtained. Physical Exam Narrative Patient is awake, appears alert No apparent distress Afebrile vital signs stable HEENT: Normocephalic atraumatic Moist mucous membrane Neck supple Lungs reported clear Heart appears regular Chest nontender Abdomen soft, obese Extremities faint brachial pulses, slightly difficult to feel Left heel dressing intact Lab / Micro Data Result Diagrams: 07/02/22 04:51 07/02/22 04:51 Labs: Laboratory Results - last 24 hr 07/01/22 18:10: WBC 9.9, RBC 4.01 L, Hgb 11.1 L, Hct 35.9 L, MCV 89.5, MCH 27.7, MCHC 30.9 L, RDW Std Deviation 42.6, RDW Coeff of James 13.1, Plt Count 195, MPV 11.3, Immature Gran % (Auto) 0.200, Neut % (Auto) 72.6 H, Lymph % (Auto) 14.1 L, [place] % (Auto) 10.5 H, Eos % (Auto) 2.3, Baso % (Auto) 0.3, Absolute Neuts (auto) 7.2, Absolute Lymphs (auto) 1.40, Nucleated RBC % 0 07/01/22 18:10: Sodium 140, Potassium 3.9, Chloride 103, Carbon Dioxide 32.0, Anion Gap 5, BUN 22 H, Creatinine 1.38 H, Estim Creat Clear Calc 56.57, Est GFR (MDRD) Af Amer 67, Est GFR (MDRD) Non-Af 55 L, BUN/Creatinine Ratio 15.9, Glucose 265 H, Calcium 9.0, Total Bilirubin 0.40, AST 18, ALT 13 L, Alkaline Phosphatase 113, Troponin I High Sens 13, Total Protein 7.1, Albumin 2.9 L, Globulin 4.2, Albumin/Globulin Ratio 0.7 L 07/01/22 18:10: ESR 29 H 07/01/22 18:10: C-React Prot Ext Range 16.70 H 07/01/22 18:25: Urine Color Yellow, Urine Clarity Sl. Cloudy, Urine pH 6.0, Ur Specific [place] 1.015, Urine Protein 30 H, Urine Glucose (UA) 100 H, Urine Ketones Negative, Urine Occult Blood Negative, Urine Nitrite Negative, Urine Bilirubin Negative, Urine Urobilinogen Normal, Ur Leukocyte Esterase Negative, Urine RBC 0 SEEN, Urine WBC 0 SEEN, Ur Squamous Epith Cells 0 SEEN, Urine Bacteria 0 SEEN, Urine Mucus 0 SEEN 07/01/22 22:55: POC Glucose 202 H 07/02/22 04:51: WBC 8.8, RBC 3.73 L, Hgb 10.4 L, Hct 32.5 L, MCV 87.1, MCH 27.9, MCHC 32.0, RDW Std Deviation 41.7, RDW Coeff of [place] 13.1, Plt Count 176, MPV 11.4, Immature Gran % (Auto) 0.300, Neut % (Auto) 68.3, Lymph % (Auto) 16.7 L, [place] % (Auto) 10.9 H, Eos % (Auto) 3.3, Baso % (Auto) 0.5, Absolute Neuts (auto) 6.0, Absolute Lymphs (auto) 1.47, Nucleated RBC % 0 07/02/22 04:51: Sodium 141, Potassium 3.2 L, Chloride 103, Carbon Dioxide 35.0 H , Anion Gap 3 L, BUN 18, Creatinine 1.19, Estim Creat Clear Calc 65.60, Est GFR (MDRD) Af Amer 79, Est GFR (MDRD) Non-Af 66, BUN/Creatinine Ratio 15.1, Glucose 239 H, Calcium 8.4 L, Phosphorus 2.6, Magnesium 2.1, Total Bilirubin 0.40, AST 14 L, ALT 13 L, Alkaline Phosphatase 99, Total Protein 6.5, Albumin 2.6 L, Globulin 3.9, Albumin/Globulin Ratio 0.7 L 07/02/22 06:35: S.aureus Protein A PCR POSITIVE H, MRSA (PCR) Negative 07/02/22 07:51: POC Glucose 219 H 07/02/22 11:05: POC Glucose 197 H Micro: Microbiology 07/02/22 06:35 Wound - Left Foot Gram Stain - Final Rhythm Strip Rhythm Strip: Sinus Rhythm Rate: 74 Ectopy: None Radiology Impression Brain CT 07/01/22 18:21 IMPRESSION: Chronic involutional changes of the brain. Small vessel ischemia. Electronically Signed: Eryn Wallace MD at 18:59 EDT , Chest X-Ray 07/01/22 18:43 IMPRESSION: Curvilinear opacity within the right midline may reflect thickening of the right minor fissure. Left basilar atelectasis and/or scarring. Electronically Signed: Eryn Wallace MD at 19:06 EDT , Foot X-Ray 07/01/22 20:22 IMPRESSION: 1. Lag screw fixation of medial malleolus, and fracture plane is evident. Normal alignment. 2. Mild degenerative changes in the midfoot. 3. No acute bony or joint space abnormality. Electronically Signed: Deuce Matthews MD at 20:38 EDT , Lower Extremity MRI 07/02/22 06:40 IMPRESSION: Edema in the subcutis adipose space without demonstrated osteomyelitis or soft tissue abscess. Chronic plantar fasciitis. Scarring of the anterior talofibular ligament. Edema in the intrinsic muscles of the hindfoot. Mild arthrosis of the navicular-cuneiform articulations. Electronically Signed: Odell العراقي MD at 12:45 EDT ,
[2022-07-02 17:00] LABS: Bedside Glucose 156 mg/dL (74-106)
[2022-07-02] MEDS: traZODone 100 MG Tablet PO (21:36)
[2022-07-02] MEDS: Atorvastatin Calcium 80 MG Tablet PO (21:36)
[2022-07-02 21:45] VITALS: BP 162/82; PULSE 52; RESP 18; TEMP 37; O2SAT 100
[2022-07-02] MEDS: Spironolactone 25 MG Tablet PO (21:45)
[2022-07-02] MEDS: Insulin Glargine-YFGN 100 UNIT/ML Pen 44 UNIT SC (21:46)
[2022-07-02] MEDS: Nystatin Powder 15gm Bottle 1 APPLIC TOPICAL (22:08)
[2022-07-02 22:26] LABS: Bedside Glucose 122 mg/dL (74-106)
[2022-07-03] VITALS (8 sets, daily range): BP systolic 160–198; BP diastolic 72–95; PULSE 55–79; RESP 16–18; TEMP 36.5–36.9; O2SAT 94–100
[2022-07-03] MEDS: busPIRone 5 MG Tablet 7.5 MG PO ×2 (05:17→13:19)
[2022-07-03] MEDS: Metoclopramide 5 MG TABLET PO ×2 (05:17→13:19)
[2022-07-03] MEDS: Acetaminophen 500 MG Tablet 1000 MG PO (05:21)
[2022-07-03] MEDS: hydrALAZINE 20 MG/ML Vial 5 MG IV ×2 (05:21→13:19)
[2022-07-03] MEDS: 0.9% Saline Lock 10 ML Syringe IV ×4 (05:26→15:26)
[2022-07-03 08:06] LABS: Bedside Glucose 118 mg/dL (74-106)
[2022-07-03] MEDS: Pregabalin 75 MG Capsule PO (08:36)
[2022-07-03] MEDS: Pantoprazole Sodium 20 MG Tablet PO (08:36)
[2022-07-03] MEDS: Clopidogrel Bisulfate 75 MG Tablet PO (08:36)
[2022-07-03] MEDS: Finasteride 5 MG Tablet PO (08:37)
[2022-07-03] MEDS: Aspirin E.C. 81 MG Tablet PO (08:37)
[2022-07-03] MEDS: Furosemide 40 MG Tablet PO (08:38)
[2022-07-03] MEDS: Loratadine 10 MG Tablet PO (08:38)
[2022-07-03] MEDS: amLODIPine 5 MG Tablet PO (08:38)
[2022-07-03] MEDS: FLUoxetine 20 MG Capsule 60 MG PO (08:38)
[2022-07-03] MEDS: Carvedilol 12.5 MG Tablet PO (08:38)
[2022-07-03] MEDS: Isosorbide Mononitrate 30 MG Tablet PO (08:39)
[2022-07-03] MEDS: Losartan Potassium 50 MG Tablet PO (08:39)
[2022-07-03] MEDS: Insulin Lispro 100 UNIT/ML INSULN.PEN 12 UNIT SC ×3 (08:58→17:07)
[2022-07-03] MEDS: Nystatin Powder 15gm Bottle 1 APPLIC TOPICAL (09:00)
--- NOTE | 2022-07-03 09:37 | CASEMGMT ---
Late entry for 07/02/2022 at 1435 RN CM in to discuss GOMEZ form with patient. RN LIZETT explained GOMEZ form, patient voiced understanding. Pt signed form and filed in chart. Pt provided with a copy of signed GOMEZ form. Patient had no further questions or concerns at this time
[2022-07-03 09:56] LABS: Vancomycin, Trough Level 22.4 ug/mL (5.0-15.0)
--- NOTE | 2022-07-03 10:07 | CASEMGMT ---
Social work SW received call from Norma at [facility] and they are able to accept pt. SW requested precert be started at this time. Updated clinicals faxed. SW met with pt and informed that [facility] can accept but must wait on precert from insurance before he can discharge. Plan: [facility], pending precert MINISTERIO Gallagher
--- NOTE | 2022-07-03 10:36 | PCM.RX.CS ---
Consult Pharmacy has been consulted to manage selected antiobiotic: Vancomycin Type of Consult: Follow-up Prior Doses of Antibiotics Received/Current Regimen: the current dose is vanc 1750mg IV q12h Labs: Sodium 141 mmol/L (136-145) 07/02/22 04:51 Potassium 3.2 mmol/L (3.5-5.1) L 07/02/22 04:51 Chloride 103 mmol/L (98-107) 07/02/22 04:51 Carbon Dioxide 35.0 mmol/L (21.0-32.0) H 07/02/22 04:51 Anion Gap 3 (5-15) L 07/02/22 04:51 BUN 18 mg/dL (7-18) 07/02/22 04:51 Creatinine 1.19 mg/dL (0.70-1.30) 07/02/22 04:51 Est GFR (MDRD) Af Amer 79 mL/min (>60) 07/02/22 04:51 Est GFR (MDRD) Non-Af 66 mL/min (>60) 07/02/22 04:51 BUN/Creatinine Ratio 15.1 RATIO (10-20) 07/02/22 04:51 Glucose 239 mg/dL (74-106) H 07/02/22 04:51 Vancomycin Trough 22.4 ug/mL (5.0-15.0) H 07/03/22 09:00 Microbiology: Microbiology 07/02/22 06:35 Wound - Left Foot Gram Stain - Final Weight used for dosin.3 kg Estimated Creatinine Clearance: 86 ML/MIN Goal Trough: 15-20 mcg/mL Pharmacy Plan for Drug Dosing: The vanc trough drawn at 09:00 today (approx 11.5 hrs after the previous dose) was 22.4. This is above goal so will hold current dose. This morning's dose of 1750mg was just hung at 10:00 per the MAR so called nursing to stop the current bag at about 10:15. Will order a random level to be drawn in 12 hours and if <20, dosing can be resumed at a newly calculated dose. Will also order a SCr to be done along with the vanc random level since there was not a SCr done this morning. The patient's CrCl of 86 was calculated using an adjusted body weight. Pharmacy Service will continue to monitor and adjust dosing as required. Follow-Up Labs: Trough Vancomycin - random Labs to be done on [date and time ordered]: 07/03/22 21:00
[2022-07-03 11:25] LABS: Bedside Glucose 151 mg/dL (74-106)
--- NOTE | 2022-07-03 12:09 | PCM.PROGNOTE ---
Subjective Subjective Patient was seen today for follow up on left heel ulceration. He is resting in chair with feet elevated. He has no new complaints. ID and vascular is following patient as well. No complaints of fever, chills, nausea or vomiting. Objective Data Objective Data Vital Signs: Vital Signs Temp Pulse Resp BP Pulse Ox O2 Del Method O2 Flow Rate 98.2 F 58 L 18 198/91 H 100 Nasal Cannula 3 07/03/22 08:25 07/03/22 08:25 07/03/22 08:25 07/03/22 08:25 07/03/22 08:25 07/03/22 08:48 07/03/22 09:34 FiO2 95 07/01/22 17:57 Oxygen Flow Rate (L/min) 3 Oxygen Delivery Method Nasal Cannula Weight: 131.3 kg Body Mass Index (BMI) 41.5 Intake & Output: Intake and Output for Last 24 Hours 07/01/22 07/02/22 07/03/22 23:59 23:59 23:59 Intake Total 600 / 600 4204.00 / 4204.00 182.83 / 182.83 Output Total 800 / 800 2950 / 2950 Balance -200 / -200 1254.00 / 1254.00 182.83 / 182.83 Lab / Micro Data Result Diagrams: 07/02/22 04:51 07/02/22 04:51 Labs: Laboratory Results - last 24 hr 07/02/22 16:35: POC Glucose 156 H 07/02/22 21:28: POC Glucose 122 H 07/03/22 07:45: POC Glucose 118 H 07/03/22 09:00: Vancomycin Trough 22.4 H 07/03/22 10:59: POC Glucose 151 H Micro: Microbiology 07/02/22 06:35 Wound - Left Foot Gram Stain - Final 07/02/22 06:35 Wound - Left Foot Wound Culture - Preliminary Staphylococcus aureus Gram negative estelle Radiography Diagnostic Testing: Radiology Impression Lower Extremity MRI 07/02/22 06:40 IMPRESSION: Edema in the subcutis adipose space without demonstrated osteomyelitis or soft tissue abscess. Chronic plantar fasciitis. Scarring of the anterior talofibular ligament. Edema in the intrinsic muscles of the hindfoot. Mild arthrosis of the navicular-cuneiform articulations. Electronically Signed: Odell العراقي MD at 12:45 EDT , Rhythm Strip Rhythm Strip: Sinus Rhythm Rate: 74 Ectopy: None Physical Exam Const alert and no apparent distress Assessment & Plan Assessment/Plan (1) Non healing left heel wound: (2) Type 2 diabetes mellitus with foot ulcer: (3) Type 2 diabetes mellitus with diabetic polyneuropathy: (4) Non-pressure chronic ulcer of other part of left foot with fat layer exposed: (5) Cellulitis of left lower limb: PLAN: Plan Reviewed diagnostic data. Reviewed left foot xrays. Reviewed MRI - no osteomyelitis, no abscess. Reviewed LEAS from April 2022 - PAD noted - vascular surgery consulted - Dr. Julian saw patient - planning intervention next Wednesday. A culture was obtained of the left heel ulceration - sent to microbiology - growing staph aureus and gram neg estelle. Patient is on Vanc/Unasyn - ID/Dr. Thakkar on consult. Wound care: betadine soln, gauze, and kerlix dressing. No immediate plans for podiatric foot surgical intervention at this time. Keep heels offloaded. No weightbearing left foot. Podiatry will continue to follow.
[2022-07-03] MEDS: Insulin Lispro 100 UNIT/ML INSULN.PEN SC (12:32)
--- NOTE | 2022-07-03 14:11 | CASEMGMT ---
Social Work SW to pt room to validate HCPOA/LW. SW shared with pt and his significant other, HCPOA- Shedanii Gipson, that HCPOA papers are confirmed and on file with [facility]. However, LW documents are not on file. Pt and She appeared confused regarding the difference. SW explained about life sustaining measures noted on LW documents. Pt stated he wants all measures used to keep him alive and does not want to complete a living will at this time. Miri Sellers, CUT OFF MAN, [employer]IST
--- NOTE | 2022-07-03 14:24 | TREXTCAR_ITS ---
Diet Diet Order/Speech Therapy: 07/01/22 23:03 Diet: Cardiac: Calorie-Controlled Type of Dietary Supplement:: Glucerna Shake Is pt able to select menu?: Yes Diet Comments: 4oz strawberry w/ breakfast and dinner How many daily calories?: 1800 calorie Routine Orders/Code Status O2 Liters per Minute: 3 O2 Frequency: Continuous Keep PO Greater than or Equal to (%): 90 Routine Lab Work: BMP (On 07/06/2022) and - (Fingerstick blood sugars AC nightly, coverage with Humalog subcu: 200-250: 5 units, 251-300: 8 units, 301-350: 12 units) Code Status: Full Code Wound(s) Left Heel: Wound Type: Neuropathic/Diabetic Foot Ulcer Dressing Change: betadine moistened gauze Therapies Weight Bearing: Keep heels offloaded (Left foot) Physical Therapy: Eval and Treat Occupational Therapy: Eval and Treat Problem/Diagnosis (1) Non healing left heel wound: Status: Acute Code(s): S91.302A - Unspecified open wound, left foot, initial encounter (2) Type 2 diabetes mellitus with foot ulcer: Status: Acute Code(s): E11.621 - Type 2 diabetes mellitus with foot ulcer; L97.509 - Non-pressure chronic ulcer of other part of unspecified foot with unspecified severity (3) Type 2 diabetes mellitus with diabetic polyneuropathy: Status: Acute Code(s): E11.42 - Type 2 diabetes mellitus with diabetic polyneuropathy (4) Non-pressure chronic ulcer of other part of left foot with fat layer exposed: Status: Chronic Code(s): L97.522 - Non-pressure chronic ulcer of other part of left foot with fat layer exposed (5) Cellulitis of left lower limb: Status: Acute Code(s): L03.116 - Cellulitis of left lower limb Plan 1. Acute on chronic debility secondary to multiple medical problems including type 2 diabetes, peripheral neuropathy, peripheral vascular disease, and chronic left foot ulceration secondary to diabetic neuropathy-PT and OT will continue to see the patient, he will need at least short-term placement of senior living facility. #2 left heel ulceration with cellulitis from staff aureus and gram-negative estelle- secondary to diabetic neuropathy-patient will be placed on Vibramycin and Augmentin as recommended by infectious diseases #3 type 2 diabetes-patient's blood sugars will be monitored, sliding scale insulin will be administered #4 peripheral vascular disease-complicates care, management, recovery, and prognosis #5 chronic depression-patient will be continued on his home medication (Prozac, BuSpar, Klonopin) #6 neuropathy secondary to type 2 diabetes-complicates care, management, recovery, prognosis #7 coronary artery disease-patient is currently on Plavix, carvedilol, and aspirin #8 chronic obstructive pulmonary disease-patient is on albuterol aerosols as needed #9 chronic hypoxic respiratory failure-patient is on nasal cannula oxygen, pulse ox will be monitored #10 essential hypertension-patient will remain on his current home medications Allergies/Procedures Done in Hospital Allergies allopurinol Adverse Reaction (Verified 05/27/22 13:36) Vomiting Influenza Virus Vaccines Adverse Reaction (Verified 05/27/22 13:36) Vomiting pneumococcal vaccine Adverse Reaction (Verified 05/27/22 13:36) Vomiting Procedures: None Type of Care/Length of Stay Estimated LOS: Convalescent Care Less Than 30 days Type of Care Needed: Skilled Rehab Potential: Good Prognosis: Good Additional Orders/Day of Discharge H&P will serve as current which was dated: 07/01/22 Day of Discharge: 07/03/22 Dietary and Speech Recommendations Dietitian Recommendations/Changes: continue cardiac, 1800 calorie controlled diet; will add glucerna 4oz BID w/ breakfast and dinner for additional protein if consumed Discharge Plan Admission Admit Date/Time: 07/01/22 21:23 Primary Reason for Your Visit: debility, left foot neuropathic wound with cellulitis Attending Provider: Rubio Miller Primary Care Provider: Doretha Brown Consulting Providers: Raheem Corona ; Steven Draper ; Jerzy Julian ; Berenice Dos Santos Instructions Additional Instructions / Restrictions: Call Dr. Jerzy Julian's office at [phone] to confirm vascular procedure which is supposed to be scheduled for 07/08/2022 at [facility], patient will need to be transported there for the procedure Discharge Orders/Prescriptions Prescriptions: New doxycycline hyclate 100 mg capsule 100 mg PO BID Qty: 20 0RF amoxicillin-pot clavulanate 875-125 mg tablet 1 tab PO BID Qty: 20 0RF clonazepam 1 mg Tablet 1 mg PO BID PRN PRN (Reason: anxiety) Qty: 14 0RF trazodone 100 mg Tablet 100 mg PO QHS Qty: 0 0RF insulin lispro [Humalog KwikPen Insulin] 100 unit/mL Insulin Pen 12 unit subcut ACHS Qty: 0 0RF metoclopramide HCl 5 mg Tablet 5 mg PO TID Qty: 0 0RF nystatin [Nyamyc] 100,000 unit/gram Powder 1 applic topical BID Qty: 0 0RF Protocol: *Topical Application Instructions APPLICATION INSTRUCTIONS: to groin fluoxetine 20 mg Capsule 60 mg PO DAILY Qty: 0 0RF Continued aspirin [Adult Aspirin Regimen] 81 mg tablet,delayed release (DR/EC) 81 mg PO DAILY atorvastatin 80 mg tablet 80 mg PO QHS Qty: 90 2RF furosemide 40 mg tablet 40 mg PO DAILY Qty: 90 3RF finasteride 5 mg tablet 5 mg PO DAILY Qty: 90 3RF pantoprazole 20 mg tablet,delayed release (DR/EC) 20 mg PO DAILY albuterol sulfate 90 mcg/actuation HFA aerosol inhaler 2 puff inhalation Q4H PRN (Reason: shortness of breath or wheezing) Qty: 8.5 3RF Rx Instructions: administer with spacer carvedilol 12.5 mg tablet 12.5 mg PO BID Qty: 180 3RF loratadine [Allergy Relief (loratadine)] 10 mg tablet 10 mg PO DAILY acetaminophen 500 MG tablet 1,000 mg PO QHS PRN PRN (Reason: Pain 1-10 Or Fever) spironolactone 25 mg tablet 25 mg PO QHS Artificial Tears([id number]) 1-0.2-0.2 % Drops 2 drp EACH EYE Q1H PRN (Reason: DRY EYES) Qty: 0 0RF losartan 50 mg tablet 50 mg PO DAILY amlodipine 5 mg tablet 5 mg PO DAILY nitroglycerin 0.4 mg tablet, sublingual 0.4 mg SL Q5M PRN (Reason: Chest Pain) Qty: 30 0RF clopidogrel 75 mg tablet 75 mg PO DAILY Qty: 90 3RF isosorbide mononitrate 30 mg tablet extended release 24 hr 30 mg PO DAILY Qty: 90 3RF insulin detemir U-100 100 unit/mL (3 mL) insulin pen 44 unit subcut QHS Qty: 15 1RF pregabalin [Lyrica] 75 mg capsule 75 mg PO BID Qty: 60 1RF Changed buspirone 7.5 mg tablet 15 mg PO TID Qty: 90 2RF (DME) gauze bandage [Bordered Gauze] 4 X 4 bandage See Rx Instructions .ROUTE .MEDSUPPLY Qty: 14 2RF Rx Instructions: Daily cleanse left foot wound with soap and water, dry and apply Betadine solution and apply clean dressing Discontinued (DME) low-sodium See Rx Instructions .Route .MEDSUPPLY Qty: 1 0RF Rx Instructions: Low-sodium diet trazodone 100 mg tablet 100 mg PO QHS insulin lispro 100 unit/mL insulin pen 1 sliding scale dose subcut 4X/DAY Protocol: 3. Sliding Scale Insulin Med Dosing Condition: 150-189 mg/dl = 1 unit Condition: 190-229 mg/dl = 2 units Condition: 230-269 mg/dl = 3 units Condition: 270-309 mg/dl = 4 units Condition: 310-349 mg/dl = 5 units Condition: 350-399 mg/dl = 6 units Condition: 400-449 mg/dl = 7 units Condition: Greater than 449 call physician Protocol Text: - Use for Total Daily Dose of Insulin 37-55 units - Obsese, infected, or steroid patients MEDIUM DOSING ALGORITHIM Rx Instructions: take 8-16 units 5 times daily per sliding scale. collagenase clostridium histo. 250 unit/gram ointment 1 applic topical DAILY Qty: 30 1RF Rx Instructions: Apply nickel thickness to heel ulcer site daily and cover with gauze clonazepam 1 mg tablet 1 mg PO BID Label Comments: TAKE 1 TABLET BY MOUTH TWICE DAILY metoclopramide HCl 5 mg tablet 5 mg PO TIDCM Label Comments: TAKE 1 TABLET BY MOUTH THREE TIMES DAILY insulin lispro 100 unit/mL insulin pen 12 unit SUBCUT ACHS Label Comments: INJECT subcuaneously 8-16 units 5 (FIVE) times daily per sliding scale.] (DME) Curity Gauze 4 X 4 sponge See Rx Instructions .ROUTE .MEDSUPPLY Qty: 1 0RF Rx Instructions: As directed fluoxetine 40 mg capsule 40 mg PO DAILY Qty: 90 2RF fluoxetine 20 mg capsule 20 mg PO DAILY Qty: 90 2RF (DME) Piston Syringe with ENFit 60 mL syringe See Rx Instructions .ROUTE .MEDSUPPLY Qty: 30 0RF Rx Instructions: As directed Referrals / Follow Up: Jerzy Julian MD [Med Staff - Active Staff] - See Referral Note (Patient will be scheduled for a vascular procedure on 07/08/2022 at [facility], Dr. Jerzy Julian's office will need to be contacted at [phone] to confirm procedure) Doretha Brown MD [Primary Care Provider] - Steven Draper DPM [Med Staff - Active Staff] - See Referral Note (On , 07/09/2022-call for appointment) Disposition Disposition (needs filled in before D/C Order can be placed): Nursing Home Facility
--- NOTE | 2022-07-03 14:54 | PCM.PN.ID ---
Physical Exam Narrative Feeling ok, no fever, foot better Const alert and no apparent distress Resp normal air movement and clear to auscultation bilaterally Cardio regular rate and regular rhythm GI soft to palpation, non-tender and non-distended Skin Skin Narrative: foot wrapped ID ID: Route of nutrition/ use of supplements: [] Nutritional Intake: [] IV Site: [] Juarez Catheter: [] Assessment & Plan Assessment/Plan (1) Diabetic foot infection: PLAN: MRI showed no osteo. Wound cx with staph aureus and GNR. Ok for d/c with 10 days doxy/augm, will adjust abx as more cxs come back. Will follow as needed, d/w primary team (2) Type 2 diabetes mellitus with diabetic polyneuropathy:
[2022-07-03 16:26] LABS: Bedside Glucose 115 mg/dL (74-106)
--- NOTE | 2022-07-03 16:39 | DS.PCM_ITS ---
Providers Date of Admission: 07/01/22 Date of Discharge: 07/03/22 Primary Care Physician: Dr. Doretha Brown MD Consultations 07/01/22 22:19 Consult: Podiatry Routine Consulting Provider: Steven Draper Reason for Consult: Foot infection EMERGENT Consult: No Notified: Yes Date Notified: 07/02/22 Time Notified: 06:22 Method of Notification: Verbal 07/01/22 22:38 Consult: Infectious Disease Routine Consulting Provider: Raheem Corona Reason for Consult: Left heel ulcer EMERGENT Consult: No Notified: Yes Date Notified: 07/02/22 Time Notified: 03:50 Method of Notification: Answering Service 07/01/22 23:12 Consult: Vascular Surgery Routine Consulting Provider: Jerzy Julian Reason for Consult: PAD EMERGENT Consult: No Notified: Yes Date Notified: 07/02/22 Time Notified: 10:00 Method of Notification: called the office 07/02/22 06:50 Consult: Vascular Surgery Routine Consulting Provider: Jerzy Julian Reason for Consult: left heel ulcer with PAD EMERGENT Consult: No Notified: Yes Date Notified: 07/02/22 Time Notified: 06:50 Method of Notification: Text 07/02/22 06:56 Consult: Onc/Wound/deputy register of deeds Routine Comment: Reason for Consult:: left foot 07/02/22 07:43 Consult: Infectious Disease Routine Consulting Provider: Raheem Corona Reason for Consult: antibiotic deescalation EMERGENT Consult: No Notified: Yes Date Notified: 07/02/22 Time Notified: 07:48 Method of Notification: Verbal Reason For Visit: DEBILITY Diagnosis Discharge Diagnosis (1) Non healing left heel wound: Status: Acute Code(s): S91.302A - Unspecified open wound, left foot, initial encounter (2) Type 2 diabetes mellitus with foot ulcer: Status: Acute Code(s): E11.621 - Type 2 diabetes mellitus with foot ulcer; L97.509 - Non-pressure chronic ulcer of other part of unspecified foot with unspecified severity (3) Type 2 diabetes mellitus with diabetic polyneuropathy: Status: Acute Code(s): E11.42 - Type 2 diabetes mellitus with diabetic polyneuropathy (4) Non-pressure chronic ulcer of other part of left foot with fat layer exposed: Status: Chronic Code(s): L97.522 - Non-pressure chronic ulcer of other part of left foot with fat layer exposed (5) Cellulitis of left lower limb: Status: Acute Code(s): L03.116 - Cellulitis of left lower limb Plan 1. Acute on chronic debility secondary to multiple medical problems including type 2 diabetes, peripheral neuropathy, peripheral vascular disease, and chronic left foot ulceration secondary to diabetic neuropathy-PT and OT will continue to see the patient, he will need at least short-term placement of long term facility. #2 left heel ulceration with cellulitis from staff aureus and gram-negative estelle-secondary to diabetic neuropathy-patient will be placed on Vibramycin and Augmentin as recommended by infectious diseases #3 type 2 diabetes-patient's blood sugars will be monitored, sliding scale insulin will be administered #4 peripheral vascular disease-complicates care, management, recovery, and p rognosis #5 chronic depression-patient will be continued on his home medication (Prozac, BuSpar, Klonopin) #6 neuropathy secondary to type 2 diabetes-complicates care, management, recovery, prognosis #7 coronary artery disease-patient is currently on Plavix, carvedilol, and aspirin #8 chronic obstructive pulmonary disease-patient is on albuterol aerosols as needed #9 chronic hypoxic respiratory failure-patient is on nasal cannula oxygen, pulse ox will be monitored #10 essential hypertension-patient will remain on his current home medications Medications at Discharge Home Medications acetaminophen 500 mg tablet 1,000 mg PO QHS PRN PRN Pain 1-10 Or Fever 02/11/21 aspirin 81 mg tablet,delayed release (Adult Aspirin Regimen) 81 mg PO DAILY heart health 11/05/21 spironolactone 25 mg tablet 25 mg PO QHS diuretic 11/08/21 peg [id number]-[id number] 1 %-0.2 %-0.2 % eye drops (Artificial Tears ([id number])) 2 drp EACH EYE Q1H PRN DRY EYES #0 mL 11/14/21 nitroglycerin 0.4 mg sublingual tablet 0.4 mg sublingual Q5M PRN Chest Pain #30 tabs 11/25/21 atorvastatin 80 mg tablet 80 mg PO QHS cholesterol #90 tabs 01/09/22 finasteride 5 mg tablet 5 mg PO DAILY prostate #90 tabs 01/09/22 furosemide 40 mg tablet 40 mg PO DAILY fluid #90 tabs 01/09/22 albuterol sulfate 90 mcg/actuation aerosol inhaler 2 puff inhalation Q4H PRN shortness of breath or wheezing #8.5 grams 02/04/22 pantoprazole 20 mg tablet,delayed release 20 mg PO DAILY gerd 02/04/22 carvedilol 12.5 mg tablet 12.5 mg PO BID heart #180 tabs 02/05/22 losartan 50 mg tablet 50 mg PO DAILY bp 03/21/22 clopidogrel 75 mg tablet 75 mg PO DAILY blood thinner #90 tabs 03/30/22 isosorbide mononitrate 30 mg tablet,extended release 24 hr 30 mg PO DAILY heart #90 tabs 03/30/22 amlodipine 5 mg tablet 5 mg PO DAILY bp 05/21/22 loratadine 10 mg tablet (Allergy Relief (loratadine)) 10 mg PO DAILY allergies 05/21/22 insulin detemir U-100 100 unit/mL (3 mL) subcutaneous pen 44 unit (0.44 mL) subcut QHS dm #15 mL 05/26/22 pregabalin 75 mg capsule (Lyrica) 75 mg PO BID nerve pain #60 caps 06/09/22 amoxicillin 875 mg-potassium clavulanate 125 mg tablet 1 tab PO BID #20 tabs 07/03/22 buspirone 7.5 mg tablet 15 mg PO TID mood #90 tabs 07/03/22 clonazepam 1 mg tablet 1 mg PO BID PRN PRN anxiety #14 tabs 07/03/22 doxycycline hyclate 100 mg capsule 100 mg PO BID #20 caps 07/03/22 fluoxetine 20 mg capsule 60 mg PO DAILY #0 caps 07/03/22 gauze bandage 4 X 4 (Bordered Gauze) #14 ea 07/03/22 insulin lispro 100 unit/mL subcutaneous pen (Humalog KwikPen (U-100) Insulin) 12 unit (0.12 mL) subcut ACHS #0 mL 07/03/22 metoclopramide HCl 5 mg tablet 5 mg PO TID #0 tabs 07/03/22 nystatin 100,000 unit/gram topical powder (Nyamyc) 1 applic topical BID #0 grams 07/03/22 trazodone 100 mg tablet 100 mg PO QHS #0 tabs 07/03/22 Hospital Course Operations None Procedures None Summary of Care Provided Minutes Spent on Discharge: 30 Hospital Course: This 62-year-old white male was brought into the emergency room at [facility] due to the fact his family could not care for him at home and he had frequent falls. Patient has a history of diabetic neuropathy and has a chronic left heel wound. Patient was placed into observation status on MedSurg 3, seen by podiatry, underwent an MRI, cultures were obtained from the wound on the left foot which grew out methicillin sensitive staph aureus and Enterobacter cloacae, he was seen in consultation by infectious diseases, he was also seen by PT and OT who recommended further therapy. Patient agreed to go to a long term facility after much conversation with him and his significant other. On 07/03/2022, patient was seen and examined:alert, oriented x3 and no apparent distress Constitutional Narrative: Patient appears older than stated age General Appearance: cooperative, well kempt and well developed Orientation / Consciousness: awake, oriented to person, oriented to place and oriented to time HEENT normocephalic, head/scalp atraumatic and moist oral mucous membranes Eyes PERRL, EOMs intact bilaterally and conjunctivae normal Neck supple, no JVD, thyroid normal and no carotid bruits General: trachea midline Resp normal respiratory effort, no retractions, no use of accessory muscles and clear to auscultation bilaterally Auscultation: Negative for rales, rhonchi or wheezes Cardio regular rate, regular rhythm, S1 normal heart sound, S2 normal heart sound, no murmurs, no rub and no gallops GI normal to inspection, nondistended, normoactive bowel sounds, soft to palpation, non-tender and non-distended GI Narrative: Patient is morbidly obese Skin Skin Narrative: Patient's left foot was wrapped with surgical dressing, this was not removed for inspection of the area Neuro oriented x3, CN's II-XII intact bilaterally, moves all extremities and no focal motor deficits Sensorium / Orientation: awake and alert Speech: speech normal Psych Psych Narrative: Patient has a flat affect Patient was transferred to a local extended care facility on 07/03/2022 in stable condition. Weight / BMI Weight Weight: 131.3 kg Body Mass Index (BMI) 41.5 ABG / Lab / Microbiology Data Result Diagrams: 07/02/22 04:51 07/02/22 04:51 Laboratory: Laboratory Results - last 24 hr 07/02/22 16:35: POC Glucose 156 H 07/02/22 21:28: POC Glucose 122 H 07/03/22 07:45: POC Glucose 118 H 07/03/22 09:00: Vancomycin Trough 22.4 H 07/03/22 10:59: POC Glucose 151 H 07/03/22 15:58: POC Glucose 115 H Microbiology: Microbiology 07/03/22 12:10 Nasal Secretion SARS-CoV-2 Antigen (Rapid) - Final 07/02/22 06:35 Wound - Left Foot Gram Stain - Final 07/02/22 06:35 Wound - Left Foot Wound Culture - Preliminary Staphylococcus aureus Gram negative estelle Meaningful Use Info Meaningful Use Diagnoses (Choose all that apply): None applicable Discharge Plan Admission Admit Date/Time: 07/01/22 21:23 Primary Reason for Your Visit: debility, left foot neuropathic wound with cellul itis Attending Provider: Rubio Miller Primary Care Provider: Doretha Brown Consulting Providers: Raheem Corona ; Steven Draper ; Jerzy Julian ; Berenice Dos Santos Instructions Additional Instructions / Restrictions: Call Dr. Jerzy Julian's office at [phone] to confirm vascular procedure which is supposed to be scheduled for 07/08/2022 at [facility], patient will need to be transported there for the procedure Discharge Orders/Prescriptions Prescriptions: New doxycycline hyclate 100 mg capsule 100 mg PO BID Qty: 20 0RF amoxicillin-pot clavulanate 875-125 mg tablet 1 tab PO BID Qty: 20 0RF clonazepam 1 mg Tablet 1 mg PO BID PRN PRN (Reason: anxiety) Qty: 14 0RF trazodone 100 mg Tablet 100 mg PO QHS Qty: 0 0RF insulin lispro [Humalog KwikPen Insulin] 100 unit/mL Insulin Pen 12 unit subcut ACHS Qty: 0 0RF metoclopramide HCl 5 mg Tablet 5 mg PO TID Qty: 0 0RF nystatin [Nyamyc] 100,000 unit/gram Powder 1 applic topical BID Qty: 0 0RF Protocol: *Topical Application Instructions APPLICATION INSTRUCTIONS: to groin fluoxetine 20 mg Capsule 60 mg PO DAILY Qty: 0 0RF Continued aspirin [Adult Aspirin Regimen] 81 mg tablet,delayed release (DR/EC) 81 mg PO DAILY atorvastatin 80 mg tablet 80 mg PO QHS Qty: 90 2RF furosemide 40 mg tablet 40 mg PO DAILY Qty: 90 3RF finasteride 5 mg tablet 5 mg PO DAILY Qty: 90 3RF pantoprazole 20 mg tablet,delayed release (DR/EC) 20 mg PO DAILY albuterol sulfate 90 mcg/actuation HFA aerosol inhaler 2 puff inhalation Q4H PRN (Reason: shortness of breath or wheezing) Qty: 8.5 3RF Rx Instructions: administer with spacer carvedilol 12.5 mg tablet 12.5 mg PO BID Qty: 180 3RF loratadine [Allergy Relief (loratadine)] 10 mg tablet 10 mg PO DAILY acetaminophen 500 MG tablet 1,000 mg PO QHS PRN PRN (Reason: Pain 1-10 Or Fever) spironolactone 25 mg tablet 25 mg PO QHS Artificial Tears([id number]) 1-0.2-0.2 % Drops 2 drp EACH EYE Q1H PRN (Reason: DRY EYES) Qty: 0 0RF losartan 50 mg tablet 50 mg PO DAILY amlodipine 5 mg tablet 5 mg PO DAILY nitroglycerin 0.4 mg tablet, sublingual 0.4 mg SL Q5M PRN (Reason: Chest Pain) Qty: 30 0RF clopidogrel 75 mg tablet 75 mg PO DAILY Qty: 90 3RF isosorbide mononitrate 30 mg tablet extended release 24 hr 30 mg PO DAILY Qty: 90 3RF insulin detemir U-100 100 unit/mL (3 mL) insulin pen 44 unit subcut QHS Qty: 15 1RF pregabalin [Lyrica] 75 mg capsule 75 mg PO BID Qty: 60 1RF Changed buspirone 7.5 mg tablet 15 mg PO TID Qty: 90 2RF (DME) gauze bandage [Bordered Gauze] 4 X 4 bandage See Rx Instructions .ROUTE .MEDSUPPLY Qty: 14 2RF Rx Instructions: Daily cleanse left foot wound with soap and water, dry and apply Betadine solution and apply clean dressing Discontinued (DME) low-sodium See Rx Instructions .Route .MEDSUPPLY Qty: 1 0RF Rx Instructions: Low-sodium diet trazodone 100 mg tablet 100 mg PO QHS insulin lispro 100 unit/mL insulin pen 1 sliding scale dose subcut 4X/DAY Protocol: 3. Sliding Scale Insulin Med Dosing Condition: 150-189 mg/dl = 1 unit Condition: 190-229 mg/dl = 2 units Condition: 230-269 mg/dl = 3 units Condition: 270-309 mg/dl = 4 units Condition: 310-349 mg/dl = 5 units Condition: 350-399 mg/dl = 6 units Condition: 400-449 mg/dl = 7 units Condition: Greater than 449 call physician Protocol Text: - Use for Total Daily Dose of Insulin 37-55 units - Obsese, infected, or steroid patients MEDIUM DOSING ALGORITHIM Rx Instructions: take 8-16 units 5 times daily per sliding scale. collagenase clostridium histo. 250 unit/gram ointment 1 applic topical DAILY Qty: 30 1RF Rx Instructions: Apply nickel thickness to heel ulcer site daily and cover with gauze clonazepam 1 mg tablet 1 mg PO BID Label Comments: TAKE 1 TABLET BY MOUTH TWICE DAILY metoclopramide HCl 5 mg tablet 5 mg PO TIDCM Label Comments: TAKE 1 TABLET BY MOUTH THREE TIMES DAILY insulin lispro 100 unit/mL insulin pen 12 unit SUBCUT ACHS Label Comments: INJECT subcuaneously 8-16 units 5 (FIVE) times daily per sliding scale.] (DME) Curity Gauze 4 X 4 sponge See Rx Instructions .ROUTE .MEDSUPPLY Qty: 1 0RF Rx Instructions: As directed fluoxetine 40 mg capsule 40 mg PO DAILY Qty: 90 2RF fluoxetine 20 mg capsule 20 mg PO DAILY Qty: 90 2RF (DME) Piston Syringe with ENFit 60 mL syringe See Rx Instructions .ROUTE .MEDSUPPLY Qty: 30 0RF Rx Instructions: As directed Referrals / Follow Up: Jerzy Julian MD [Med Staff - Active Staff] - See Referral Note (Patient will be scheduled for a vascular procedure on 07/08/2022 at [facility], Dr. Jerzy Julian's office will need to be contacted at [phone] to confirm procedure) Doretha Brown MD [Primary Care Provider] - Wunning,Steven, DPM [Med Staff - Active Staff] - See Referral Note (On , 07/09/2022-call for appointment) Disposition Disposition (needs filled in before D/C Order can be placed): Long Term Facility Charges/Coding Visit Charges OBSV E&M: 21883 Observation care discharge
--- NOTE | 2022-07-03 16:58 | CASEMGMT ---
ALICE CM in to pt room to make pt aware that he will be dc'ing to [facility] today. Pt ready for dinner. He and his fiance deny further needs and is agreeable to the plan.
--- NOTE | 2022-07-03 17:04 | CASEMGMT ---
Social Work SW spoke with pt Direction Home Slip Maker Cathy Aceves, and informed of discharge plan. D/C instructions faxed. PASSRR completed and placed on pt chart with discharge information for discharge later today. Norma at [facility] updated that pt will be discharged later today. MINISTERIO Gallagher
[2022-07-03] MEDS: clonazePAM 1 MG Tablet PO (17:56)
--- NOTE | 2022-07-04 13:11 | CM.ED ---
Addendum entered by Virgen Morin 07/04/22 13:14: Raheem's number is [phone] and Jena number is [phone] Original Note: RICO received voice mail from Doris requesting call back. RICO called Doris back. Doris said that patient went to [facility] and he wasn't liking it and wanted to leave. Doris said that the staff said that if he leaves [place] his insurance might not cover his placement or home health. RICO explained that this web content writer could not speak to what insurance coverage could provide. Doris said that patient had home health in the past and she wondered if the home health, through [facility] could be resumed. RICO will send email to Jessica at [facility] and also Eh GÓMEZ sent email to Jessica [facility] and Abigail Pierson Plan: To be determined Virgen SANTANA
== END 2022-07-03 19:05 | disposition skilled nursing facility (03) ==
LOC: ED 21:31 → MS3 21:44
PROVIDERS: Podiatrist; Admitting Provider Internal Medicine; Emergency Provider Emergency Medicine; PCP Internal Medicine; Visit Provider Internal Medicine
DX: E11.628 Type 2 diabetes mellitus with other skin complications (principal); E11.621 Type 2 diabetes mellitus with foot ulcer; E11.51 Type 2 diabetes mellitus with diabetic peripheral angiopathy without gangrene; L97.522 Non-pressure chronic ulcer of other part of left foot with fat layer exposed; L97.422 Non-pressure chronic ulcer of left heel and midfoot with fat layer exposed; J44.9 Chronic obstructive pulmonary disease, unspecified; E11.42 Type 2 diabetes mellitus with diabetic polyneuropathy; E11.22 Type 2 diabetes mellitus with diabetic chronic kidney disease; E11.65 Type 2 diabetes mellitus with hyperglycemia; Z79.4 Long term (current) use of insulin; L03.116 Cellulitis of left lower limb; Z79.02 Long term (current) use of antithrombotics/antiplatelets; I25.10 Atherosclerotic heart disease of native coronary artery without angina pectoris; Z79.82 Long term (current) use of aspirin; R53.81 Other malaise; S20.229A Contusion of unspecified back wall of thorax, initial encounter; K21.9 Gastro-esophageal reflux disease without esophagitis; Y93.9 Activity, unspecified; Z87.891 Personal history of nicotine dependence; D64.9 Anemia, unspecified; I12.9 Hypertensive chronic kidney disease with stage 1 through stage 4 chronic kidney disease, or unspecified chronic kidney disease; R53.1 Weakness; N18.9 Chronic kidney disease, unspecified; E78.00 Pure hypercholesterolemia, unspecified; Y99.9 Unspecified external cause status; W19.XXXA Unspecified fall, initial encounter; Y92.9 Unspecified place or not applicable; Z79.899 Other long term (current) drug therapy; F41.9 Anxiety disorder, unspecified; F32.A Depression, unspecified; Z99.81 Dependence on supplemental oxygen; B95.61 Methicillin susceptible Staphylococcus aureus infection as the cause of diseases classified elsewhere
CPT/HCPCS: 36415; 70450; 71045; 73630; 73718; 80053; 80202; 81001; 81002; 82962; 83735; 84100; 84484; 85025; 85652; 86140; 87070; 87077; 87186; 87205; 87426; 87640; 93005; 96361; 96365; 96366; 96367; 96375; 96376; 97162; 97166; 97530; 97802; 99218; 99285; J7040; J7120; A4216; G0378; J0295

== ENCOUNTER 2022-07-04 14:47 | Observation (INO) | payer MEDICARE, MEDICAID, SELFPAY ==
[2022-07-04 14:48] VITALS: BP 154/61; PULSE 79; RESP 20; TEMP 37.1; O2SAT 99; BMI 42.7
[2022-07-04 14:53] VITALS: O2SAT 98
--- NOTE | 2022-07-04 15:01 | ED.VIS.FALL ---
HPI <SUJATHA Silva - Last Filed: 07/04/22 16:40> HPI - Fall History of Present Illness Chief Complaint: Fall Narrative Narrative: 62-year-old male presents after mechanical fall. He was seen here recently for multiple falls and a left foot ulcer. He was admitted and sent to [facility]. He wanted to leave the intermediate early today and walk to his vehicle with his and both legs gave out and he fell onto his butt. No head injury or LOC. He could not get up so EMS was called to assist and brought him to the ED. He has chronic low back pain and states its not really worse from the fall. No other complaints. [facility] <SUJATHA Silva - Last Filed: 07/04/22 16:40> [facility] Medical History Ambulates with cane Amputation of one or more toes Anxiety and depression Arrhythmia Arthritis Aspiration into airway Aspiration pneumonia Atherosclerotic heart disease of [place] coronary artery without angina pectoris Bilateral leg weakness Blind left eye Blister (nonthermal), left foot, initial encounter Bronchiectasis with (acute) exacerbation Cardiology follow-up encounter Chronic cough Chronic respiratory failure with hypoxia COPD (chronic obstructive pulmonary disease) CPAP (continuous positive airway pressure) dependence Debility, unspecified Depression Diabetes Essential hypertension Gastric reflux GERD (gastroesophageal reflux disease) High cholesterol History of aspiration pneumonia History of echocardiogram History of edema History of gout History of heart attack History of non-ST elevation myocardial infarction (NSTEMI) (08/2016) History of pain when walking History of steroid therapy History of stress test Hyperglycemia due to type 2 diabetes mellitus Hypertension Insulin dependent diabetes mellitus Kidney stones Leg pain, right Leukocytosis Memory impairment Migraines Mood disorder Non-smoker On home oxygen therapy Peripheral vascular occlusive disease Pneumonia Prostate disease Pulmonary nodule, left Right ankle pain Shortness of breath on exertion Silent aspiration Sleep apnea Tremor Type 2 diabetes mellitus Type 2 diabetes mellitus with diabetic polyneuropathy Ulcer of left foot, limited to breakdown of skin Vision loss of left eye Wears glasses Wound of left lower extremity Home Medications acetaminophen 500 mg tablet 1,000 mg PO QHS PRN PRN Pain 1-10 Or Fever 02/11/21 [History Last Taken 05/14/22 18:50 1000] aspirin 81 mg tablet,delayed release (Adult Aspirin Regimen) 81 mg PO DAILY heart health 11/05/21 [History Last Taken 07/01/22] spironolactone 25 mg tablet 25 mg PO QHS diuretic 11/08/21 [History Last Taken 07/01/22] peg [id number] 1 %-0.2 %-0.2 % eye drops (Artificial Tears ([id number])) 2 drp EACH EYE Q1H PRN DRY EYES #0 mL 11/14/21 [Rx Last Taken Unknown] nitroglycerin 0.4 mg sublingual tablet 0.4 mg sublingual Q5M PRN Chest Pain #30 tabs 11/25/21 [Rx Last Taken Unknown] atorvastatin 80 mg tablet 80 mg PO QHS cholesterol #90 tabs 01/09/22 [Rx Last Taken 06/30/22] finasteride 5 mg tablet 5 mg PO DAILY prostate #90 tabs 01/09/22 [Rx Last Taken 07/01/22] furosemide 40 mg tablet 40 mg PO DAILY fluid #90 tabs 01/09/22 [Rx Last Taken 07/01/22] albuterol sulfate 90 mcg/actuation aerosol inhaler 2 puff inhalation Q4H PRN shortness of breath or wheezing #8.5 grams 02/04/22 [Rx Last Taken Unknown] pantoprazole 20 mg tablet,delayed release 20 mg PO DAILY gerd 02/04/22 [History Last Taken 07/01/22] carvedilol 12.5 mg tablet 12.5 mg PO BID heart #180 tabs 02/05/22 [Rx Last Taken 07/01/22] losartan 50 mg tablet 50 mg PO DAILY bp 03/21/22 [History Last Taken 07/01/22] clopidogrel 75 mg tablet 75 mg PO DAILY blood thinner #90 tabs 03/30/22 [Rx Last Taken 07/01/22] isosorbide mononitrate 30 mg tablet,extended release 24 hr 30 mg PO DAILY heart #90 tabs 03/30/22 [Rx Last Taken 07/01/22] amlodipine 5 mg tablet 5 mg PO DAILY bp 05/21/22 [History Last Taken 07/01/22] loratadine 10 mg tablet (Allergy Relief (loratadine)) 10 mg PO DAILY allergies 05/21/22 [History Last Taken 07/01/22] insulin detemir U-100 100 unit/mL (3 mL) subcutaneous pen 44 unit (0.44 mL) subcut QHS dm #15 mL 05/26/22 [Rx Last Taken 06/30/22] pregabalin 75 mg capsule (Lyrica) 75 mg PO BID nerve pain #60 caps 06/09/22 [Rx Last Taken 07/01/22] amoxicillin 875 mg-potassium clavulanate 125 mg tablet 1 tab PO BID #20 tabs 07/03/22 [Rx Last Taken Unknown] buspirone 7.5 mg tablet 15 mg PO TID mood #90 tabs 07/03/22 [Rx Last Taken 07/01/22] clonazepam 1 mg tablet 1 mg PO BID PRN PRN anxiety #14 tabs 07/03/22 [Rx Last Taken Unknown] doxycycline hyclate 100 mg capsule 100 mg PO BID #20 caps 07/03/22 [Rx Last Taken Unknown] fluoxetine 20 mg capsule 60 mg PO DAILY #0 caps 07/03/22 [Rx Last Taken Unknown] gauze bandage 4 X 4 (Bordered Gauze) #14 ea 07/03/22 [Rx Last Taken Unknown] insulin lispro 100 unit/mL subcutaneous pen (Humalog KwikPen (U-100) Insulin) 12 unit (0.12 mL) subcut ACHS #0 mL 07/03/22 [Rx Last Taken Unknown] metoclopramide HCl 5 mg tablet 5 mg PO TID #0 tabs 07/03/22 [Rx Last Taken Unknown] nystatin 100,000 unit/gram topical powder (Nyamyc) 1 applic topical BID #0 grams 07/03/22 [Rx Last Taken Unknown] trazodone 100 mg tablet 100 mg PO QHS #0 tabs 07/03/22 [Rx Last Taken Unknown] Allergy/AdvReac Type Severity Reaction Status Date / Time allopurinol AdvReac Vomiting Verified 07/04/22 14:53 Influenza Virus Vaccines AdvReac Vomiting Verified 07/04/22 14:53 pneumococcal vaccine AdvReac Vomiting Verified 07/04/22 14:53 Family History Mother Diabetes Heart disease CHF Father Heart disease DC/CAD Myocardial infarction Surgical History H/O lithotripsy History of angioplasty of peripheral vessel (2017) History of angioplasty of peripheral vessel History of ankle surgery History of cardiac catheterization History of coronary artery stent placement (08/2016) History of coronary artery stent placement History of esophagogastroduodenoscopy (EGD) History of left heart catheterization (11/15/17) History of thyroid surgery Hx of lithotripsy Hx of surgery to heart and great vessels, presenting hazards to health Hx of surgical procedure Hx of thyroidectomy Hx of toe surgery Hx of toe surgery PEG (percutaneous endoscopic gastrostomy) status Social History household members: spouse housing: apartment Smoking Status: Never smoker alcohol intake: never substance use type: does not use ROS <SUJATHA Silva - Last Filed: 07/04/22 16:40> ROS ED ROS Narrative Constitutional: Negative for fever, chills, malaise. Eyes: Negative for visual change. ENT: Negative for sore throat, ear pain, rhinorrhea. CVS: Negative for palpitations, chest pain, syncope. Respiratory: Negative for shortness of breath, cough, orthopnea. GI: Negative for abdominal pain, nausea, vomiting, diarrhea, constipation, melena, hematochezia. : Negative for dysuria, hematuria or frequency. Neuro: Negative for headache, motor/sensory dysfunction. Skin: Positive for diabetic ulcer. Negative for rash, abscess. Musc: Negative for joint pain, swelling, trauma. Heme: Negative for easy bruising, bleeding, lymphadenopathy. EXAM <SUJATHA Silva - Last Filed: 07/04/22 16:40> Physical Exam Narrative Exam Narrative: CONST: Patient sitting in no acute distress. EYES: Normal inspection. ENT: Normal inspection, moist mucous membranes. Nasal cannula in place. NECK: Normal inspection. No midline spinal tenderness, no step off or crepitus. RESP: No respiratory distress, CTAB. Clavicle and chest wall nontender. CVS: Regular rate and rhythm, no murmur, no gallop. ABD: Soft and nontender, no guarding or rebound. Pelvis: Intact, nontender. Back: Normal inspection, midline lumbar spinal tenderness without step-offs, no area of ecchymosis right lumbar region. SKIN: Color normal, no rash, warm, dry, intact. EXTREMITIES: Velcro boot on left lower extremity, able to move both lower extremities without pain. NEURO: Oriented x4. PSYCH: Normal affect. Const Vital Signs: 07/04/22 14:48 07/04/22 14:53 Temperature 98.8 F Temperature Source Temporal Pulse Rate 79 Respiratory Rate 20 H Respiratory Effort Normal Blood Pressure 154/61 H Blood Pressure Mean 92 Pulse Ox 99 98 Oxygen Delivery Method Nasal Cannula Nasal Cannula Oxygen Flow Rate (L/min) 4 4 <Dr. Ck Villar DO - Last Filed: 07/04/22 17:25> Physical Exam Const Vital Signs: 07/04/22 14:48 07/04/22 14:53 Temperature 98.8 F Temperature Source Temporal Pulse Rate 79 Respiratory Rate 20 H Respiratory Effort Normal Blood Pressure 154/61 H Blood Pressure Mean 92 Pulse Ox 99 98 Oxygen Delivery Method Nasal Cannula Nasal Cannula Oxygen Flow Rate (L/min) 4 4 [facility] <SUJATHA Silva - Last Filed: 07/04/22 16:40> [facility] MDM Narrative Medical decision making narrative: Patient left [facility] AMA and had a mechanical fall in the parking lot landing on his butt without head injury. He appears well and nontoxic. Vital signs unremarkable. On examination awake and alert GCS 15. Heart regular, lungs clear, abdomen soft and nontender. On spinal examination he has mild tenderness over the upper lumbar spine without step-offs. No tenderness of upper or lower extremities and pulses intact. Lumbar spine x-ray shows no acute findings. After discussion with the patient he does not want to go home but does not want to go back to [facility]. I will consult social work to help determine disposition. Patient refused to go to [facility] and apparently since he was discharged there cannot go back anyway. Social work states he has to be admitted to be placed elsewhere. Case discussed with the hospitalist for admission. Radiography Diagnostic Testing: Clinical Impression(s) from Imaging Studies Lumbar Spine X-Ray 07/04/22 15:20 IMPRESSION: 1. No acute osseous abnormalities. 2. Degenerative changes in the upper lumbar spine with anterior osteophyte formation with facet hypertrophy in the lower lumbar spine. Electronically Signed: Demetrius Talbert MD at 15:43 EDT , ED attending interpretation of lumbar spine shows no acute fracture. <Dr. Ck Villar, DO - Last Filed: 07/04/22 17:25> [facility] MDM Narrative Medical decision making narrative: This patient was seen with a PA/REAL ESTATE UTILIZATION OFFICER Individually assessed they patient including history and physical. I have reviewed everything on the chart that is available and agree with the documentation provided by the PA/REAL ESTATE UTILIZATION OFFICER including discussion about the assessment, treatment plan, discussion, and return precautions. 61-year-old male presenting with inability to ambulate. Apparently tried to leave his [place] [facility] today. He states he left because his arm was cold and he felt like he was in long term there. He was not able to make it to his car. The patient fell and could not get up. He had some back pain and x-rays of the lumbar spine on my interpretation showed no acute findings. Radiologist agree. Patient stating he does not want to go back to [facility]. At this point had social work come and see the patient. They state he would need to be admitted again to find placement. Discussed with the hospitalist for admission Patient left [facility] and had a mechanical fall in the parking lot landing on his butt without head injury. He appears well and nontoxic. Vital signs unremarkable. On examination awake and alert GCS 15. Heart regular, lungs clear, abdomen soft and nontender. On spinal examination he has mild tenderness over the upper lumbar spine without step-offs. No tenderness of upper or lower extremities and pulses intact. Lumbar spine x-ray shows no acute findings. After discussion with the patient he does not want to go home but does not want to go back to [facility]. I will consult social work to help determine disposition. Patient refused to go to [facility] and apparently since he was discharged there cannot go back anyway. Social work states he has to be admitted to be placed elsewhere. Case discussed with the hospitalist for admission. Impression: 1. generalized weakness 2. Mechanical fall 3. Lumbar strain Radiography Diagnostic Testing: Clinical Impression(s) from Imaging Studies Lumbar Spine X-Ray 07/04/22 15:20 IMPRESSION: 1. No acute osseous abnormalities. 2. Degenerative changes in the upper lumbar spine with anterior osteophyte formation with facet hypertrophy in the lower lumbar spine. Electronically Signed: Demetrius Talbert MD at 15:43 EDT , Discharge Plan Triage Chief Complaint: Fall ED Midlevel Provider: Yuliana Richard ED Provider: Ck Villar Dx/Rx/DC Orders Clinical Impression: Recurrent falls, Low back pain, Noncompliance by declining intervention or support Primary Care Provider: Doretha Brown Disposition Disposition: Acute Care Hospital
--- NOTE | 2022-07-04 15:20 | RAD_ITS ---
EXAM: XR LUMBOSACRAL SPINE, 2 OR 3 VIEWS CLINICAL INDICATION: back pain TECHNIQUE: Frontal and lateral views of the lumbar spine and sacrum. This report was created using [employer] report [employer] technology. COMPARISON: None. FINDINGS: VERTEBRAE: Unremarkable. Preserved vertebral body height. No fracture. No spondylolisthesis. Preservation of the normal lumbar lordosis. No significant facet arthropathy. DISC SPACES: There is a large anterior osteophyte at T12-L1. There is facet hypertrophy at L4-5 and L5-S1. GASTROINTESTINAL TRACT: Unremarkable as visualized. Included bowel gas pattern is non-obstructive. RAD/Lumbar Spine 2 or 3 Views IMPRESSION: 1. No acute osseous abnormalities. 2. Degenerative changes in the upper lumbar spine with anterior osteophyte formation with facet hypertrophy in the lower lumbar spine. Electronically Signed: Demetrius Talbert MD at 15:43 EDT ,
--- NOTE | 2022-07-04 16:33 | PCM.HP.STD ---
HPI - General General Date of Admission: 07/04/22 Date of Service: 07/04/22 Chief Complaint: Falls HPI Narrative REA HANNA, is a 62 M who presents following a fall when trying to leave the retirement. Patient states that he is was unhappy with his care at [facility] to which he got to yesterday and subsequently decided that he was going to go home with his . Patient fell in the parking lot when trying to leave and was subsequently brought to the ER. Patient is requesting to go to a different nursing facility. Patient has a history of mood disorder, hypertension, GERD, PVD, CAD, heart failure, diabetes mellitus type 2, anxiety and depression, failure to thrive. Patient is noncompliant with supportive care acknowledges that he cannot take care of himself however does not want any help or assistance and is noncompliant with care plans [facility] Medical History Ambulates with cane Amputation of one or more toes Anxiety and depression Arrhythmia Arthritis Aspiration into airway Aspiration pneumonia Atherosclerotic heart disease of yuhaaviat[place] coronary artery without angina pectoris Bilateral leg weakness Blind left eye Blister (nonthermal), left foot, initial encounter Bronchiectasis with (acute) exacerbation Cardiology follow-up encounter Chronic cough Chronic respiratory failure with hypoxia COPD (chronic obstructive pulmonary disease) CPAP (continuous positive airway pressure) dependence Debility, unspecified Depression Diabetes Essential hypertension Gastric reflux GERD (gastroesophageal reflux disease) High cholesterol History of aspiration pneumonia History of echocardiogram History of edema History of gout History of heart attack History of non-ST elevation myocardial infarction (NSTEMI) (08/2016) History of pain when walking History of steroid therapy History of stress test Hyperglycemia due to type 2 diabetes mellitus Hypertension Insulin dependent diabetes mellitus Kidney stones Leg pain, right Leukocytosis Memory impairment Migraines Mood disorder Non-smoker On home oxygen therapy Peripheral vascular occlusive disease Pneumonia Prostate disease Pulmonary nodule, left Right ankle pain Shortness of breath on exertion Silent aspiration Sleep apnea Tremor Type 2 diabetes mellitus Type 2 diabetes mellitus with diabetic polyneuropathy Ulcer of left foot, limited to breakdown of skin Vision loss of left eye Wears glasses Wound of left lower extremity Home Medications acetaminophen 500 mg tablet 1,000 mg PO QHS PRN PRN Pain 1-10 Or Fever 02/11/21 [History Last Taken 05/14/22 18:50 1000] aspirin 81 mg tablet,delayed release (Adult Aspirin Regimen) 81 mg PO DAILY heart health 11/05/21 [History Last Taken 07/01/22] spironolactone 25 mg tablet 25 mg PO QHS diuretic 11/08/21 [History Last Taken 07/01/22] peg [id number] 1 %-0.2 %-0.2 % eye drops (Artificial Tears ([id number])) 2 drp EACH EYE Q1H PRN DRY EYES #0 mL 11/14/21 [Rx Last Taken Unknown] nitroglycerin 0.4 mg sublingual tablet 0.4 mg sublingual Q5M PRN Chest Pain #30 tabs 11/25/21 [Rx Last Taken Unknown] atorvastatin 80 mg tablet 80 mg PO QHS cholesterol #90 tabs 01/09/22 [Rx Last Taken 06/30/22] finasteride 5 mg tablet 5 mg PO DAILY prostate #90 tabs 01/09/22 [Rx Last Taken 07/01/22] furosemide 40 mg tablet 40 mg PO DAILY fluid #90 tabs 01/09/22 [Rx Last Taken 07/01/22] albuterol sulfate 90 mcg/actuation aerosol inhaler 2 puff inhalation Q4H PRN shortness of breath or wheezing #8.5 grams 02/04/22 [Rx Last Taken Unknown] pantoprazole 20 mg tablet,delayed release 20 mg PO DAILY gerd 02/04/22 [History Last Taken 07/01/22] carvedilol 12.5 mg tablet 12.5 mg PO BID heart #180 tabs 02/05/22 [Rx Last Taken 07/01/22] losartan 50 mg tablet 50 mg PO DAILY bp 03/21/22 [History Last Taken 07/01/22] clopidogrel 75 mg tablet 75 mg PO DAILY blood thinner #90 tabs 03/30/22 [Rx Last Taken 07/01/22] isosorbide mononitrate 30 mg tablet,extended release 24 hr 30 mg PO DAILY heart #90 tabs 03/30/22 [Rx Last Taken 07/01/22] amlodipine 5 mg tablet 5 mg PO DAILY bp 05/21/22 [History Last Taken 07/01/22] loratadine 10 mg tablet (Allergy Relief (loratadine)) 10 mg PO DAILY allergies 05/21/22 [History Last Taken 07/01/22] insulin detemir U-100 100 unit/mL (3 mL) subcutaneous pen 44 unit (0.44 mL) subcut QHS dm #15 mL 05/26/22 [Rx Last Taken 06/30/22] pregabalin 75 mg capsule (Lyrica) 75 mg PO BID nerve pain #60 caps 06/09/22 [Rx Last Taken 07/01/22] amoxicillin 875 mg-potassium clavulanate 125 mg tablet 1 tab PO BID #20 tabs 07/03/22 [Rx Last Taken Unknown] buspirone 7.5 mg tablet 15 mg PO TID mood #90 tabs 07/03/22 [Rx Last Taken 07/01/22] clonazepam 1 mg tablet 1 mg PO BID PRN PRN anxiety #14 tabs 07/03/22 [Rx Last Taken Unknown] doxycycline hyclate 100 mg capsule 100 mg PO BID #20 caps 07/03/22 [Rx Last Taken Unknown] fluoxetine 20 mg capsule 60 mg PO DAILY #0 caps 07/03/22 [Rx Last Taken Unknown] gauze bandage 4 X 4 (Bordered Gauze) #14 ea 07/03/22 [Rx Last Taken Unknown] insulin lispro 100 unit/mL subcutaneous pen (Humalog KwikPen (U-100) Insulin) 12 unit (0.12 mL) subcut ACHS #0 mL 07/03/22 [Rx Last Taken Unknown] metoclopramide HCl 5 mg tablet 5 mg PO TID #0 tabs 07/03/22 [Rx Last Taken Unknown] nystatin 100,000 unit/gram topical powder (Nyamyc) 1 applic topical BID #0 grams 07/03/22 [Rx Last Taken Unknown] trazodone 100 mg tablet 100 mg PO QHS #0 tabs 07/03/22 [Rx Last Taken Unknown] Allergy/AdvReac Type Severity Reaction Status Date / Time allopurinol AdvReac Vomiting Verified 07/04/22 14:53 Influenza Virus Vaccines AdvReac Vomiting Verified 07/04/22 14:53 pneumococcal vaccine AdvReac Vomiting Verified 07/04/22 14:53 Family History Mother Diabetes Heart disease CHF Father Heart disease CA/CAD Myocardial infarction Surgical History H/O lithotripsy History of angioplasty of peripheral vessel (2017) History of angioplasty of peripheral vessel History of ankle surgery History of cardiac catheterization History of coronary artery stent placement (08/2016) History of coronary artery stent placement History of esophagogastroduodenoscopy (EGD) History of left heart catheterization (11/15/17) History of thyroid surgery Hx of lithotripsy Hx of surgery to heart and great vessels, presenting hazards to health Hx of surgical procedure Hx of thyroidectomy Hx of toe surgery Hx of toe surgery PEG (percutaneous endoscopic gastrostomy) status Social History household members: spouse housing: apartment Smoking Status: Never smoker alcohol intake: never substance use type: does not use ROS Constitutional Constitutional: Reports weakness; Denies anorexia, chills, fatigue or malaise Cardiovascular Cardiovascular: Denies chest pain, edema or orthopnea Respiratory/Chest Respiratory/Chest: Denies cough, shortness of breath at rest, shortness of breath with exertion or wheezing Gastrointestinal Gastrointestinal: Denies abdominal pain, constipation, diarrhea, nausea or vomiting Genitourinary Genitourinary: Denies dysuria Musculoskeletal Musculoskeletal: Reports back pain; Denies extremity pain, joint pain or joint stiffness Integumentary Integumentary: Denies dry skin Neurologic Neurologic: Reports weakness; Denies abnormal gait, abnormal speech, confusion or dizziness Psychiatric Psychiatric: Denies anxiety or depression Endocrine Endocrinology: Denies change in body appearance Hematologic/Lymphatic Hematologic/Lymphatic: Denies anemia Vital Signs Vital Signs Vital Signs: 07/04/22 14:48 07/04/22 14:53 Temperature 98.8 F Temperature Source Temporal Pulse Rate 79 Respiratory Rate 20 H Respiratory Effort Normal Blood Pressure 154/61 H Blood Pressure Mean 92 Pulse Ox 99 98 Oxygen Delivery Method Nasal Cannula Nasal Cannula Oxygen Flow Rate (L/min) 4 4 Weight Weight: 297 lb 13.512 oz Body Mass Index (BMI) 42.7 Physical Exam Const alert, oriented x3 and no apparent distress HEENT normocephalic and head/scalp atraumatic Eyes conjunctivae normal and no scleral icterus Neck no lymphadenopathy and supple General: trachea midline Resp normal respiratory effort, normal air movement and clear to auscultation bilaterally Cardio regular rate, regular rhythm, S1 normal heart sound, S2 normal heart sound and peripheral pulses 2+ throughout GI normal to inspection, nondistended, normoactive bowel sounds, soft to palpation and non-tender Extremity normal capillary refill and no clubbing, cyanosis or edema Skin Skin Narrative: Left foot wrapped with surgical dressing Lesions: no lesions Rashes: no rashes Neuro no focal motor deficits and no sensory deficits noted Psych cooperative Results Radiology Impression Lumbar Spine X-Ray 07/04/22 15:20 IMPRESSION: 1. No acute osseous abnormalities. 2. Degenerative changes in the upper lumbar spine with anterior osteophyte formation with facet hypertrophy in the lower lumbar spine. Electronically Signed: Demetrius Talbert MD at 15:43 EDT , Assessment & Plan Assessment/Plan (1) Recurrent falls: (2) Noncompliance by declining intervention or support: (3) Low back pain: PLAN: Plan 1.? Acute on chronic debility secondary to multiple medical problems -Admit to MedSurg -PT and OT to eval and treat -Case management consulted for SNF placement 2. Left heel ulceration secondary to diabetic neuropathy -Continue Augmentin -Wound nurse consult 3. Diabetes mellitus type 2 -ACH S blood sugars with sliding scale insulin ordered -Patient's home insulin regimen ordered 4. Peripheral vascular disease -Scheduled for procedure 07/08/22 5. Chronic depression -Continue home medication regimen including Prozac, BuSpar, Klonopin 6. Neuropathy secondary to type 2 diabetes -complicates care, management, recovery, prognosis 7. Coronary artery disease -Continue Plavix, carvedilol, and aspirin 8. Chronic obstructive pulmonary disease -Continue as needed albuterol 9. Chronic hypoxic respiratory failure -Stable, currently on 4 L nasal cannula which is patient baseline 10. Essential hypertension -Continue patient home medications DVT prophylaxis-subcu heparin This patient was seen by Margarita Leger NP-C under the supervision of Dr. Miller. 29 minutes spent in clinical coordination of patient's plan of care.
--- NOTE | 2022-07-04 16:47 | CM.ED ---
RICO Note RICO has had numerous phone calls today from Gabriela. Gabriela had called and asked how it could be changed that patient is not signed out AMA at [facility]. Gabriela said that patient reports he does not like [facility] and wants to leave. RICO explained that AMA is a medical determination by . Gabriela called and inquired about resumption of home health. RICO sent email to [facility] at [facility] advising patient is requesting resumption of home health. RICO was then advised by that patient fell while leaving [facility]. RICO spoke to Gabriela and patient. Patient said that he did not like [facility]. He stated between you and me the omlet was ice cold. SW advised that patient is unable to go home due to his weakness so he needs to be admitted. Patient said that he would rather stay at [facility] as I know you guys. RICO advised patient and Gabriela that they need to decide on an alternate placement for patient. Patient said maybe Gabriela needs to go out to the place. Gabriela has the list of SNF in network for patient that was given to her by the RICO. RICO updated and PA. Plan: Admit for placement [facility]gen SANTANA
--- NOTE | 2022-07-04 16:53 | CM.ED ---
RICO left voice mail message for patient's [facility] Mgr Cathy Aceves, advising that patient left [facility] AMA and then fell and came to the ED. RICO advised patient is being admitted. RICO advised patient will probably be on MS3 and provided her with Abigail Du's contact number. Plan: To be determined Virgen SANTANA
[2022-07-04 16:57] VITALS: BP 148/84; PULSE 82; RESP 22; TEMP 36.8; O2SAT 100
[2022-07-04 17:36] VITALS: BMI 41.4
[2022-07-04 17:56] VITALS: BP 174/79; PULSE 68; RESP 18; TEMP 36.6; O2SAT 98
[2022-07-04] MEDS: Amox/Clavulanate 875 MG Tablet PO (18:30)
[2022-07-04] MEDS: Spironolactone 25 MG Tablet PO (22:28)
[2022-07-04] MEDS: Atorvastatin Calcium 80 MG Tablet PO (22:28)
[2022-07-04] MEDS: Pregabalin 75 MG Capsule PO (22:28)
[2022-07-04] MEDS: busPIRone 15 MG TABLET PO (22:29)
[2022-07-04] MEDS: Carvedilol 12.5 MG Tablet PO (22:29)
[2022-07-04] MEDS: traZODone 100 MG Tablet PO (22:29)
[2022-07-04] MEDS: Heparin Injection (Vial) 5,000 UNIT/ML VIAL 5000 UNIT SC (22:33)
[2022-07-04] MEDS: Nystatin Powder 15gm Bottle 1 APPLIC TOPICAL (22:34)
[2022-07-04] MEDS: Insulin Glargine-YFGN 100 UNIT/ML Pen 44 UNIT SC (22:35)
[2022-07-04] MEDS: Insulin Lispro 100 UNIT/ML INSULN.PEN 12 UNIT SC (22:36)
[2022-07-04] MEDS: Insulin Lispro 100 UNIT/ML INSULN.PEN SC (22:36)
[2022-07-04 23:30] VITALS: BP 184/90; PULSE 71; RESP 18; TEMP 37.3; O2SAT 100
[2022-07-05 05:00] VITALS: BP 167/86; PULSE 57; RESP 16; TEMP 36.7; O2SAT 100
[2022-07-05] MEDS: Amox/Clavulanate 875 MG Tablet PO ×2 (06:49→17:34)
[2022-07-05] MEDS: busPIRone 15 MG TABLET PO ×3 (06:49→21:17)
[2022-07-05] MEDS: Metoclopramide 5 MG TABLET PO ×3 (07:28→16:23)
--- NOTE | 2022-07-05 08:19 | PN.HOSP_ITS ---
Subjective Subjective Patient was seen and examined today, patient has no complaints of any fever, chills, or chest discomfort. Objective Data Objective Data Vital Signs: Vital Signs Temp Pulse Resp BP Pulse Ox O2 Del Method O2 Flow Rate 98.0 F 57 L 16 167/86 H 100 Nasal Cannula 4 07/05/22 05:00 07/05/22 05:00 07/05/22 05:00 07/05/22 05:00 07/05/22 05:00 07/05/22 07:37 07/05/22 07:37 Oxygen Flow Rate (L/min) 4 Oxygen Delivery Method Nasal Cannula Weight: 131 kg Body Mass Index (BMI) 41.4 Intake & Output: Intake and Output for Last 24 Hours 07/03/22 07/04/22 07/05/22 23:59 23:59 23:59 Intake Total 100 / 100 Output Total 500 / 500 Balance 100 / -400 -500 / -500 Radiography Diagnostic Testing: Radiology Impression Lumbar Spine X-Ray 07/04/22 15:20 IMPRESSION: 1. No acute osseous abnormalities. 2. Degenerative changes in the upper lumbar spine with anterior osteophyte formation with facet hypertrophy in the lower lumbar spine. Electronically Signed: Demetrius Talbert MD at 15:43 EDT , Physical Exam Narrative On examination he appeared older than his stated age. Vital signs as documented. Skin warm and dry and without overt rashes. Neck without JVD, neck was supple, trachea midline, thyroid was normal. Lungs clear bilaterally, normal air movement was noted. Heart exam notable for regular rhythm, normal sounds and absence of murmurs, rubs or gallops. Abdomen unremarkable and without evidence of organomegaly, masses, or abdominal aortic enlargement.? Bowel sounds are present, abdomen is not distended.? Extremities nonedematous, no cyanosis was noted, no clubbing was noted.? Neuro: Cranial nerves II through XII are grossly intact, no focal motor deficits were noted, sensation to light touch and pinprick intact, motor exam 5/5 throughout.? Psych: Patient is alert and oriented x3, he does not appear anxious or depressed, he does not appear agitated. Assessment & Plan Assessment/Plan (1) Recurrent falls: PLAN: Plan Impression: #1 generalized debility-continue PT and OT, patient will need to choose another intermediate home to be discharged to, he is due to have a vascular procedure on Wednesday, most likely he will be here until that is done. #2 left heel ulceration with cellulitis from staff aureus (methicillin sensitive staph aureus, and Enterobacter)-I will keep the patient on Augmentin #3 chronic hypoxic respiratory failure-patient is on chronic oxygen #4? type 2 diabetes-patient's blood sugars will be monitored, sliding scale insulin will be administered #5 coronary artery disease- patient is to remain on his present medications #6 peripheral vascular disease-patient will need intervention next week here at the hospital, this will be scheduled for this Wednesday #7 chronic obstructive pulmonary disease-patient will be kept on albuterol aerosols Charges/Coding Visit Charges OBSV E&M: 64229 Subsequent observation care L2
[2022-07-05] MEDS: Heparin Injection (Vial) 5,000 UNIT/ML VIAL 5000 UNIT SC ×2 (09:18→21:18)
[2022-07-05] MEDS: Pregabalin 75 MG Capsule PO ×2 (09:18→21:23)
[2022-07-05] MEDS: Carvedilol 12.5 MG Tablet PO ×2 (09:18→21:18)
[2022-07-05] MEDS: Isosorbide Mononitrate 30 MG Tablet PO (09:18)
[2022-07-05] MEDS: Furosemide 40 MG Tablet PO (09:18)
[2022-07-05] MEDS: Losartan Potassium 50 MG Tablet PO (09:18)
[2022-07-05] MEDS: Aspirin E.C. 81 MG Tablet PO (09:18)
[2022-07-05] MEDS: amLODIPine 5 MG Tablet PO (09:18)
[2022-07-05] MEDS: Pantoprazole Sodium 20 MG Tablet PO (09:19)
[2022-07-05] MEDS: Clopidogrel Bisulfate 75 MG Tablet PO (09:19)
[2022-07-05] MEDS: Nystatin Powder 15gm Bottle 1 APPLIC TOPICAL ×2 (09:19→21:19)
[2022-07-05] MEDS: Finasteride 5 MG Tablet PO (09:19)
[2022-07-05] MEDS: FLUoxetine 20 MG Capsule 60 MG PO (09:19)
[2022-07-05 09:27] VITALS: BP 178/89; PULSE 84; RESP 18; TEMP 36.7; O2SAT 99
[2022-07-05] MEDS: Insulin Lispro 100 UNIT/ML INSULN.PEN 12 UNIT SC ×3 (11:33→21:31)
[2022-07-05] MEDS: Insulin Lispro 100 UNIT/ML INSULN.PEN SC ×3 (11:33→21:31)
[2022-07-05 12:10] LABS: Bedside Glucose 171 mg/dL (74-106)
[2022-07-05 14:36] VITALS: BP 147/77; PULSE 60; RESP 16; TEMP 36.6; O2SAT 98
[2022-07-05 16:45] LABS: Bedside Glucose 183 mg/dL (74-106)
[2022-07-05 20:30] VITALS: BP 136/76; PULSE 60; RESP 18; TEMP 36.8; O2SAT 99
[2022-07-05] MEDS: Spironolactone 25 MG Tablet PO (21:17)
[2022-07-05] MEDS: traZODone 100 MG Tablet PO (21:18)
[2022-07-05] MEDS: Atorvastatin Calcium 80 MG Tablet PO (21:19)
[2022-07-05] MEDS: Insulin Glargine-YFGN 100 UNIT/ML Pen 44 UNIT SC (21:30)
[2022-07-05 22:46] LABS: Bedside Glucose 160 mg/dL (74-106)
[2022-07-06] VITALS (7 sets, daily range): BP systolic 133–206; BP diastolic 70–97; PULSE 52–82; RESP 16–18; TEMP 36.4–36.7; O2SAT 98–100
--- NOTE | 2022-07-06 03:18 | NURSING ---
Pt resting with eyes closed, diaphoretic. Accucheck 48. Pt given Bjorn & jason crackers with PB - will monitor.
--- NOTE | 2022-07-06 03:40 | NURSING ---
ACCUCHECK RECHECK 95. PT ALERT, ORIENTED & APPROPRIATE.
[2022-07-06 03:56] LABS: Bedside Glucose 95 mg/dL (74-106)
[2022-07-06 03:56] LABS: Bedside Glucose 48 mg/dL (74-106)
[2022-07-06] MEDS: busPIRone 15 MG TABLET PO ×3 (06:07→21:19)
[2022-07-06] MEDS: Amox/Clavulanate 875 MG Tablet PO ×2 (06:07→17:52)
[2022-07-06 06:25] LABS: Bedside Glucose 110 mg/dL (74-106)
[2022-07-06] MEDS: FLUoxetine 20 MG Capsule 60 MG PO (07:57)
[2022-07-06] MEDS: Clopidogrel Bisulfate 75 MG Tablet PO (07:57)
[2022-07-06] MEDS: Metoclopramide 5 MG TABLET PO ×3 (07:57→15:16)
[2022-07-06] MEDS: Losartan Potassium 50 MG Tablet PO (07:58)
[2022-07-06] MEDS: Aspirin E.C. 81 MG Tablet PO (07:58)
[2022-07-06] MEDS: amLODIPine 5 MG Tablet PO (07:58)
[2022-07-06] MEDS: Heparin Injection (Vial) 5,000 UNIT/ML VIAL 5000 UNIT SC ×2 (07:58→21:14)
[2022-07-06] MEDS: Isosorbide Mononitrate 30 MG Tablet PO (07:59)
[2022-07-06] MEDS: Furosemide 40 MG Tablet PO (07:59)
[2022-07-06] MEDS: Finasteride 5 MG Tablet PO (07:59)
[2022-07-06] MEDS: Carvedilol 12.5 MG Tablet PO ×2 (07:59→21:19)
[2022-07-06] MEDS: Pantoprazole Sodium 20 MG Tablet PO (07:59)
[2022-07-06] MEDS: Nystatin Powder 15gm Bottle 1 APPLIC TOPICAL ×2 (08:00→21:13)
[2022-07-06] MEDS: Pregabalin 75 MG Capsule PO ×2 (08:05→21:12)
[2022-07-06 08:27] LABS: Absolute Lymphocyte Count 1.61 X10^3/uL (0.83-4.51); Absolute Neutrophil Count 8.2 X10^3/uL (2.0-7.7); Basophil# 0.03 X10^3/uL; Basophil% 0.3 % (0-1); Eosinophil# 0.04 X10^3/uL; Eosinophils% 0.4 % (0-5); Hematocrit 37.8 % (40-54); Hemoglobin 12.3 g/dL (13.0-16.5); Lymphocyte # 1.61 X10^3/ul (0.83-4.51); Lymphocyte % 14.6 % (19-41); Mean Corp Hgb Conc 32.5 g/dL (32-36); Mean Corpuscular Hgb 28.5 pg (27.0-32.0); Mean Corpuscular Volume 87.5 fL (80-94); Mean Platelet Vol. 10.9 fl (6.2-12.0); Monocyte# 1.04 X10^3/uL; Monocyte% 9.5 % (0-10); NRBC Flagged by Analyzer 0 % (0-5); Neutrophil # 8.24 X10^3/uL (2.7-7.7); Neutrophil % 74.9 % (47-70); Platelet Count 207 K/mm3 (150-450); RBC Distribution Width CV 12.9 % (11.6-14.6); RBC Distribution Width SD 41.1 fl (35.1-43.9); Red Blood Count 4.32 M/mm3 (4.6-6.2)
[2022-07-06 08:51] LABS: Anion Gap 4 (5-15); BUN 19 mg/dL (7-18); BUN/Creat Ratio 16.4 RATIO (10-20); Calcium,Total 9.1 mg/dL (8.5-10.1); Chloride 102 mmol/L (98-107); Creatinine, Serum 1.16 mg/dL (0.70-1.30); EST Glomerular Filtration Rate 68 mL/min (>60); Est Glom Filt Rate - Afr Amer 82 mL/min (>60); Glucose 133 mg/dL (74-106); Potassium 3.7 mmol/L (3.5-5.1); Sodium Level 140 mmol/L (136-145)
[2022-07-06] MEDS: Insulin Lispro 100 UNIT/ML INSULN.PEN 12 UNIT SC ×3 (09:04→17:51)
--- NOTE | 2022-07-06 09:34 | PN.HOSP_ITS ---
Subjective Subjective Patient seen and examined. He was eating breakfast. He had no active coughing and had an uneventful night. His blood pressure was quite elevated at 207 systolic this morning. It improved after he received his blood pressure medications. Review of systems otherwise negative. Objective Data Objective Data Vital Signs: Vital Signs Temp Pulse Resp BP Pulse Ox O2 Del Method O2 Flow Rate 97.5 F L 66 16 168/87 H 99 Nasal Cannula 4 07/06/22 08:14 07/06/22 08:14 07/06/22 08:14 07/06/22 09:06 07/06/22 08:14 07/06/22 08:14 07/06/22 08:14 Oxygen Flow Rate (L/min) 4 Oxygen Delivery Method Nasal Cannula Weight: 288 lb 12.889 oz Body Mass Index (BMI) 41.4 Intake & Output: Intake and Output for Last 24 Hours 07/04/22 07/05/22 07/06/22 23:59 23:59 23:59 Intake Total 100 / 100 200 / 200 Output Total 1400 / 1800 500 / 500 Balance 100 / -400 -1400 / -1600 -300 / -300 Lab / Micro Data Result Diagrams: 07/06/22 08:06 07/06/22 08:06 Labs: Laboratory Results - last 24 hr 07/05/22 11:29: POC Glucose 171 H 07/05/22 16:21: POC Glucose 183 H 07/05/22 21:29: POC Glucose 160 H 07/06/22 03:11: POC Glucose 48 L 07/06/22 03:35: POC Glucose 95 07/06/22 06:06: POC Glucose 110 H 07/06/22 08:06: WBC 11.0, RBC 4.32 L, Hgb 12.3 L, Hct 37.8 L, MCV 87.5, MCH 28.5, MCHC 32.5, RDW Std Deviation 41.1, RDW Coeff of James 12.9, Plt Count 207, MPV 10.9, Immature Gran % (Auto) 0.300, Neut % (Auto) 74.9 H, Lymph % (Auto) 14.6 L, Divide % (Auto) 9.5, Eos % (Auto) 0.4, Baso % (Auto) 0.3, Absolute Neuts (auto) 8.2 H, Absolute Lymphs (auto) 1.61, Nucleated RBC % 0 07/06/22 08:06: Sodium 140, Potassium 3.7, Chloride 102, Carbon Dioxide 34.0 H, Anion Gap 4 L, BUN 19 H, Creatinine 1.16, Estim Creat Clear Calc 67.30, Est GFR (MDRD) Af Amer 82, Est GFR (MDRD) Non-Af 68, BUN/Creatinine Ratio 16.4, Glucose 133 H, Calcium 9.1 Physical Exam Const alert, oriented x3 and no apparent distress HEENT head/scalp atraumatic, moist oral mucous membranes and oropharynx normal Head and Scalp: normocephalic Mouth: oral and palatal mucosa normal Eyes PERRL and EOMs intact bilaterally Neck no lymphadenopathy, supple and no JVD Resp normal respiratory effort, no retractions, no use of accessory muscles and clear to auscultation bilaterally Cardio regular rate, regular rhythm, S1 normal heart sound, S2 normal heart sound and no murmurs GI normal to inspection, nondistended, normoactive bowel sounds, soft to palpation, non-tender and non-distended Extremity normal to inspection, full ROM and no clubbing, cyanosis or edema Neuro oriented x3, CN's II-XII intact bilaterally, moves all extremities and no focal motor deficits Sensorium / Orientation: awake Coordination / Balance: [id number] test normal Motor Exam: strength 5/5 throughout Psych affect normal Assessment & Plan Assessment/Plan (1) Recurrent falls: (2) Low back pain: PLAN: Plan #Debility due to frequent falls * PT/OT on board * fall precautions. * #Left heel ulceration with cellulitis * wound cultures grew MSSA and Enterobacter * on augmentin PO * Scheduled for a vascular surgery procedure on Wednesday * #Type 2 diabetes mellitus * on ISS. Accuchecks ACHS * also on lantus * #Chronic hypoxic respiratory failure due to COPD: on his baseline 2-3L of oxygen. #CAD: s/p stents. On plavix. #Heart failure with preserved ejection fraction: Acute exacerbation 2. On Lasix, Imdur and spironolactone #History of aspiration with dysphagia: Speech therapy on board. On modified diet #Anxiety and depression: On Xanax, paroxetine and buspirone DVT prophylaxis: Lovenox Disposition: DC to SNF after he has the procedure on Wednesday, pending precert. Charges/Coding Visit Charges Inpatient E&M: 71185 Subs Hosp L2
--- NOTE | 2022-07-06 10:47 | CASEMGMT ---
Social Work SW discussed LW with patient during his previous hospital stay. Pt does not want to complete LW documents as he wants all life sustaining measures if the need arises. Pt has HCPOA papers on file with [facility], naming his significant other, She Gipson. MINISTERIO Kennedy
--- NOTE | 2022-07-06 11:21 | CASEMGMT ---
ALICE PHOENIX in to discuss GOMEZ form with patient. RN LIZETT explained GOMEZ form, patient voiced understanding. Pt signed form and filed in chart. Pt provided with a copy of signed GOMEZ form. Patient fiance in room at present. Patient states that he knows that he needs a SNF but does not want to go back to [facility]. Updated SW. Patient/ had no further questions or concerns at this time.
[2022-07-06 11:50] LABS: Bedside Glucose 189 mg/dL (74-106)
[2022-07-06] MEDS: Insulin Lispro 100 UNIT/ML INSULN.PEN SC ×2 (13:00→17:51)
[2022-07-06 13:01] LABS: Bedside Glucose 172 mg/dL (74-106)
--- NOTE | 2022-07-06 13:29 | CASEMGMT ---
Social Work SW in to talk with pt and his significant other She about SNF options. Patient was provided a list of SNF?providers including quality and resource use data that is consistent with the patient?s preferred geographic region, medical needs, and insurance network. The patient discussed concerns about which facility he should go to as the last place he went he was unsatisfied with. Pt stating he would leave again if he does not like the next place as well. SW suggested significant other, She, take a brief tour of the two facilities they had interest in today and get back to SW after they've discussed what she seen. Pt and She voiced understanding and agreed this would be the best option for them at this time. SW shared the importance of timeliness on making a decision for insurance approval concerns and they both voiced understanding. She stating she will make appointment to see [facility] first. Plan: [facility], pending pt choice, facility acceptance and precert. MINISTERIO Kennedy
--- NOTE | 2022-07-06 13:48 | CHAPLAIN ---
Type of Pastoral Visit _x__ Initial Visit ___ Follow-up Visit ___ On-call Visit ___ General Patient Visit ___ Spiritual Assessment ___ Family Conference ___ Bereavement ___ Rapid Response ___ Code Blue ___ Other (describe below) Pastoral Care Referral From _x__ Patient ___ Family ___ Nurse ___ Physician ___ Oven Dauber ___ Cottage Master ___ Other (describe below) Sacrament/Intervention _x__ Active listening ___ Anointing ___ Protestant ___ Bereavement ___ Communion ___ Sarai exploration ___ ___ Life review _x__ Prayer ___ Reconciliation ___ Sacrament of Sick _x__ Supportive presence ___ Wedding ___ Other (describe below) Pastoral Comments patient has been seen before in previous admissions; updated status; SO is with patient in room and assisting pt with decisions on what ECF to choose for further rehab
[2022-07-06] MEDS: Acetaminophen 500 MG Tablet 1000 MG PO (15:16)
[2022-07-06 16:30] LABS: Bedside Glucose 205 mg/dL (74-106)
[2022-07-06] MEDS: Insulin Glargine-YFGN 100 UNIT/ML Pen 44 UNIT SC (21:13)
[2022-07-06] MEDS: Spironolactone 25 MG Tablet PO (21:18)
[2022-07-06] MEDS: Atorvastatin Calcium 80 MG Tablet PO (21:19)
[2022-07-06] MEDS: traZODone 100 MG Tablet PO (21:20)
[2022-07-06 21:51] LABS: Bedside Glucose 160 mg/dL (74-106)
[2022-07-07 04:32] LABS: Absolute Lymphocyte Count 2.35 X10^3/uL (0.83-4.51); Absolute Neutrophil Count 4.3 X10^3/uL (2.0-7.7); Basophil# 0.04 X10^3/uL; Basophil% 0.5 % (0-1); Eosinophil# 0.12 X10^3/uL; Eosinophils% 1.5 % (0-5); Hematocrit 35.2 % (40-54); Hemoglobin 11.2 g/dL (13.0-16.5); Lymphocyte # 2.35 X10^3/ul (0.83-4.51); Lymphocyte % 29.8 % (19-41); Mean Corp Hgb Conc 31.8 g/dL (32-36); Mean Corpuscular Hgb 27.6 pg (27.0-32.0); Mean Corpuscular Volume 86.7 fL (80-94); Monocyte# 1.09 X10^3/uL; Monocyte% 13.8 % (0-10); NRBC Flagged by Analyzer 0 % (0-5); Neutrophil # 4.25 X10^3/uL (2.7-7.7); Neutrophil % 53.9 % (47-70); Platelet Count 204 K/mm3 (150-450); RBC Distribution Width SD 40.5 fl (35.1-43.9); Red Blood Count 4.06 M/mm3 (4.6-6.2); White Blood Count 7.9 K/mm3 (4.4-11.0)
[2022-07-07 04:52] LABS: Anion Gap 4 (5-15); BUN 21 mg/dL (7-18); BUN/Creat Ratio 17.8 RATIO (10-20); Calcium,Total 8.8 mg/dL (8.5-10.1); Chloride 103 mmol/L (98-107); Creatinine, Serum 1.18 mg/dL (0.70-1.30); EST Glomerular Filtration Rate 66 mL/min (>60); Est Glom Filt Rate - Afr Amer 80 mL/min (>60); Estimated Creatinine Clearance 66.16 ml/min; Glucose 67 mg/dL (74-106); Sodium Level 143 mmol/L (136-145)
[2022-07-07] MEDS: busPIRone 15 MG TABLET PO ×3 (05:46→22:29)
[2022-07-07] MEDS: Metoclopramide 5 MG TABLET PO ×3 (05:46→16:03)
[2022-07-07] MEDS: Amox/Clavulanate 875 MG Tablet PO ×2 (05:46→18:02)
[2022-07-07 05:50] VITALS: BP 160/83; PULSE 56; RESP 18; TEMP 36.5; O2SAT 100
[2022-07-07 08:06] VITALS: O2SAT 99
[2022-07-07 08:16] LABS: Bedside Glucose 79 mg/dL (74-106)
[2022-07-07] MEDS: Potassium Chloride Oral Tablet 20 MEQ 60 MEQ PO (09:10)
[2022-07-07] MEDS: Isosorbide Mononitrate 30 MG Tablet PO (09:15)
[2022-07-07] MEDS: Finasteride 5 MG Tablet PO (09:15)
[2022-07-07] MEDS: FLUoxetine 20 MG Capsule 60 MG PO (09:15)
[2022-07-07] MEDS: Aspirin E.C. 81 MG Tablet PO (09:16)
[2022-07-07] MEDS: amLODIPine 5 MG Tablet PO (09:16)
[2022-07-07] MEDS: Furosemide 40 MG Tablet PO (09:16)
[2022-07-07] MEDS: Pantoprazole Sodium 20 MG Tablet PO (09:16)
[2022-07-07] MEDS: Carvedilol 12.5 MG Tablet PO ×2 (09:16→22:29)
[2022-07-07] MEDS: Heparin Injection (Vial) 5,000 UNIT/ML VIAL 5000 UNIT SC ×2 (09:16→22:30)
[2022-07-07] MEDS: Losartan Potassium 50 MG Tablet PO (09:16)
[2022-07-07] MEDS: Clopidogrel Bisulfate 75 MG Tablet PO (09:16)
[2022-07-07] MEDS: Nystatin Powder 15gm Bottle 1 APPLIC TOPICAL ×2 (09:16→22:37)
[2022-07-07] MEDS: Pregabalin 75 MG Capsule PO ×2 (09:25→22:29)
[2022-07-07] MEDS: Insulin Lispro 100 UNIT/ML INSULN.PEN 12 UNIT SC ×3 (09:26→17:18)
[2022-07-07 09:35] VITALS: BP 189/89; PULSE 58; RESP 18; TEMP 36.8; O2SAT 96
--- NOTE | 2022-07-07 09:47 | CASEMGMT ---
Addendum entered by Miri Sellers 07/07/22 11:38: SW in to speak with pt and his lorenaance She to discuss their thoughts on SNF choices after her tours of each facility yesterday. Pt reports She thinks [facility] would be a good fit for him and is requesting he go there. SW informed pt that bed availability and precert would determine if he can go. Pt voiced understanding. SW discussed intent to start the referral process. Pt appreciative. Discharge Assistance, Madhuri, notified and will send referral to [facility] at [facility]. MINISTERIO Kennedy Original Note: Social Work SW called pt oneil, She Gipson, to discuss options for SNF placement. Left voicemail requesting She call this SW back as soon as possible. SW also called [facility] [employer] caser Cathy Pan to update her that patient has returned to [facility]. Left voicemail with contact number. MINISTERIO Kennedy
--- NOTE | 2022-07-07 10:34 | PN.HOSP_ITS ---
Subjective Subjective Patient seen and examined. He had no active complaints. He did become hypoglycemic overnight. Review of systems is otherwise negative. Objective Data Objective Data Vital Signs: Vital Signs Temp Pulse Resp BP Pulse Ox O2 Del Method O2 Flow Rate 98.3 F 58 L 18 189/89 H 96 Nasal Cannula 4 07/07/22 09:35 07/07/22 09:35 07/07/22 09:35 07/07/22 09:35 07/07/22 09:35 07/07/22 09:39 07/07/22 09:39 Oxygen Flow Rate (L/min) 4 Oxygen Delivery Method Nasal Cannula Weight: 288 lb 12.889 oz Body Mass Index (BMI) 41.4 Intake & Output: Intake and Output for Last 24 Hours 07/05/22 07/06/22 07/07/22 23:59 23:59 23:59 Intake Total 1150 / 1150 Output Total 1400 / 1800 1350 / 1350 Balance -1400 / -1600 -200 / -200 Lab / Micro Data Result Diagrams: 07/07/22 03:51 07/07/22 03:51 Labs: Laboratory Results - last 24 hr 07/06/22 11:05: POC Glucose 189 H 07/06/22 12:40: POC Glucose 172 H 07/06/22 16:02: POC Glucose 205 H 07/06/22 21:07: POC Glucose 160 H 07/07/22 03:51: WBC 7.9, RBC 4.06 L, Hgb 11.2 L, Hct 35.2 L, MCV 86.7, MCH 27.6, MCHC 31.8 L, RDW Std Deviation 40.5, RDW Coeff of James 13.0, Plt Count 204, MPV 11.0, Immature Gran % (Auto) 0.500, Neut % (Auto) 53.9, Lymph % (Auto) 29.8, [place] % (Auto) 13.8 H, Eos % (Auto) 1.5, Baso % (Auto) 0.5, Absolute Neuts (auto) 4.3, Absolute Lymphs (auto) 2.35, Nucleated RBC % 0 07/07/22 03:51: Sodium 143, Potassium 3.0 L, Chloride 103, Carbon Dioxide 36.0 H , Anion Gap 4 L, BUN 21 H, Creatinine 1.18, Estim Creat Clear Calc 66.16, Est GFR (MDRD) Af Amer 80, Est GFR (MDRD) Non-Af 66, BUN/Creatinine Ratio 17.8, Glucose 67 L, Calcium 8.8 07/07/22 07:55: POC Glucose 79 Physical Exam Const alert, oriented x3 and no apparent distress HEENT normocephalic, head/scalp atraumatic, moist oral mucous membranes and oropharynx normal Mouth: oral and palatal mucosa normal Eyes PERRL, EOMs intact bilaterally, conjunctivae normal and no scleral icterus Neck no lymphadenopathy, supple and no JVD General: trachea midline Resp Resp Narrative: mildly diminished breath sounds bibasally, no wheezes or crackles. On 4L of oxygen by nasal canula Cardio regular rate, regular rhythm, S1 normal heart sound, S2 normal heart sound, no murmurs and peripheral pulses 2+ throughout GI normal to inspection, nondistended, normoactive bowel sounds, soft to palpation, non-tender and non-distended Extremity normal to inspection, full ROM, normal capillary refill and no clubbing, cyanosis or edema Skin Skin Narrative: Left foot wrapped with surgical dressing Lesions: no lesions Rashes: no rashes Neuro oriented x3, CN's II-XII intact bilaterally, moves all extremities, no focal motor deficits and no sensory deficits noted Sensorium / Orientation: awake Coordination / Balance: [id number] test normal Motor Exam: strength 5/5 throughout Psych cooperative and affect normal Assessment & Plan Assessment/Plan (1) Recurrent falls: (2) Low back pain: PLAN: Plan #Debility due to frequent falls * PT/OT on board * fall precautions. * #Hypokalemia: K is 3. Will replace and monitor. #Left heel ulceration with cellulitis * wound cultures grew MSSA and Enterobacter * on augmentin PO * Scheduled for a vascular surgery procedure on Wednesday * #Type 2 diabetes mellitus * on ISS. Accuchecks ACHS * also on lantus * #Chronic hypoxic respiratory failure due to COPD: on 4L of oxygen. #CAD: s/p stents. On plavix. #Heart failure with preserved ejection fraction: * No acute exacerbation. * On Lasix, Imdur and spironolactone #History of aspiration with dysphagia: Speech therapy on board. On modified diet #Anxiety and depression: On Xanax, paroxetine and buspirone DVT prophylaxis: Lovenox Disposition: DC to SNF after he has the procedure on Wednesday, pending precert. Charges/Coding Visit Charges Inpatient E&M: 62775 Subs Hosp L2
[2022-07-07 11:20] LABS: Bedside Glucose 121 mg/dL (74-106)
--- NOTE | 2022-07-07 11:44 | CASEMGMT ---
Discharge Public Health Program Manager Madhuri villanueva/grace assistant program manager faxed referral [facility] Will follow up. Plan: [place], Waiting Acceptance. Madhuri Morgan Discharge Public Health Program Manager
--- NOTE | 2022-07-07 14:13 | CASEMGMT ---
Discharge Museum Technician Flaca from the [facility] reached out. Flaca is going to have to decline referral at this time due to patient seeming to be a flight risk due to him leaving [facility] and [facility] does not have a secured unit for the patient. Plan: Undetermined. Madhuri Morgan Discharge Museum Technician
--- NOTE | 2022-07-07 15:20 | CASEMGMT ---
Discharge Emts Madhuri d/c educational assistant teacher called Darling at [facility]. [facility] are available. Madhuri sent referral via email. Will follow up. Plan: [place], Waiting Acceptance Madhuri Morgan Discharge Emts
[2022-07-07 15:30] VITALS: BP 153/67; PULSE 57; RESP 18; TEMP 36.8; O2SAT 100
--- NOTE | 2022-07-07 15:57 | CASEMGMT ---
Social Work Sw in to meet with pt and his fiance She. SW notified pt that he has not been accepted at [facility]. Pt expressed disappointment. Pt was provided another list of SNF providers including quality and resource data consistent with patient's preferred geographic area, medical needs and insurance network. He discussed other options with She and they named alternative options 1) [facility] 2) [facility] 3) [facility]. SW discussed intent to send referral to [facility] as it is pt's first choice and update pt and She with new acceptance or denial when [facility] has reviewed. Pt voiced understanding. MINISTERIO Kennedy
[2022-07-07] MEDS: 0.9% Saline Lock 10 ML Syringe IV (16:13)
[2022-07-07 16:31] LABS: Bedside Glucose 135 mg/dL (74-106)
[2022-07-07 21:30] VITALS: BP 158/71; PULSE 60; RESP 18; TEMP 36.7; O2SAT 100
[2022-07-07] MEDS: Atorvastatin Calcium 80 MG Tablet PO (22:29)
[2022-07-07] MEDS: Spironolactone 25 MG Tablet PO (22:30)
[2022-07-07] MEDS: traZODone 100 MG Tablet PO (22:30)
[2022-07-07 23:00] LABS: Bedside Glucose 110 mg/dL (74-106)
[2022-07-08] MEDS: Acetaminophen 500 MG Tablet 1000 MG PO ×2 (01:18→22:38)
[2022-07-08] MEDS: Amox/Clavulanate 875 MG Tablet PO ×2 (05:56→18:30)
[2022-07-08] MEDS: Metoclopramide 5 MG TABLET PO ×3 (05:57→16:49)
[2022-07-08] MEDS: busPIRone 15 MG TABLET PO ×3 (05:57→22:39)
[2022-07-08 06:00] VITALS: BP 167/76; PULSE 55; RESP 18; TEMP 36.8; O2SAT 97
[2022-07-08 07:06] VITALS: O2SAT 99
[2022-07-08 07:12] LABS: Absolute Lymphocyte Count 2.28 X10^3/uL (0.83-4.51); Absolute Neutrophil Count 5.4 X10^3/uL (2.0-7.7); Basophil# 0.03 X10^3/uL; Basophil% 0.3 % (0-1); Eosinophil# 0.16 X10^3/uL; Eosinophils% 1.8 % (0-5); Hematocrit 35.5 % (40-54); Hemoglobin 11.4 g/dL (13.0-16.5); Lymphocyte # 2.28 X10^3/ul (0.83-4.51); Lymphocyte % 25.1 % (19-41); Mean Corp Hgb Conc 32.1 g/dL (32-36); Mean Corpuscular Hgb 28.1 pg (27.0-32.0); Mean Corpuscular Volume 87.7 fL (80-94); Mean Platelet Vol. 10.8 fl (6.2-12.0); Monocyte# 1.14 X10^3/uL; Monocyte% 12.6 % (0-10); NRBC Flagged by Analyzer 0 % (0-5); Neutrophil # 5.44 X10^3/uL (2.7-7.7); Neutrophil % 59.9 % (47-70); Platelet Count 215 K/mm3 (150-450); RBC Distribution Width CV 13.1 % (11.6-14.6); RBC Distribution Width SD 41.7 fl (35.1-43.9); Red Blood Count 4.05 M/mm3 (4.6-6.2); White Blood Count 9.1 K/mm3 (4.4-11.0)
[2022-07-08 07:43] LABS: Anion Gap 3 (5-15); BUN 20 mg/dL (7-18); BUN/Creat Ratio 15.9 RATIO (10-20); Calcium,Total 9.4 mg/dL (8.5-10.1); Chloride 105 mmol/L (98-107); Creatinine, Serum 1.26 mg/dL (0.70-1.30); EST Glomerular Filtration Rate 61 mL/min (>60); Est Glom Filt Rate - Afr Amer 74 mL/min (>60); Estimated Creatinine Clearance 61.96 ml/min; Glucose 80 mg/dL (74-106); Potassium 3.8 mmol/L (3.5-5.1); Sodium Level 142 mmol/L (136-145)
[2022-07-08 07:45] LABS: Bedside Glucose 70 mg/dL (74-106)
--- NOTE | 2022-07-08 08:16 | OP.PCM_ITS ---
Problems Associated Problem List Diagnoses (1) Diabetic foot infection: Report of Operation Date of Procedure: 07/08/22 Pre-Operative Diagnosis: PAD with nonhealing ulcer left foot Post-Operative Diagnosis: The same Surgery/Procedure Performed:: 1. Ultrasound-guided access retrograde right common femoral artery. 2. Left lower extremity angiogram with catheter placed in the third order popliteal artery. 3. Closure with Star close Surgeon: Jerzy Julian Type of Anesthesia: IV Sedation Specimen's removed: None Drains: None Description of Procedure: Patient brought to the [facility]. Underwent appropriate timeout consent. Underwent sedation. Was prepped and draped in a sterile fashion. We did ultrasound-guided access retrograde right common femoral artery. Put a Glidewire up and then a 5 [place] sheath. Get 5000 units of heparin. We got up and over the bifurcation. Did an angiogram from the iliac. It first was then the internal iliac pulled back and imaged from the left common iliac artery. This showed the distal common iliac. The external iliac was widely patent. We then put the catheter down the iliac and imaged from there. Showing the common femoral artery, the profunda and the femoral widely patent. Put a wire and catheter down the femoral imaged from that point showing the popliteal into the tibials was patent. We then advanced the catheter into the mid popliteal and imaged to the ankle. Showed the anterior tibial, posterior tibial and peroneal arteries were patent all the way into the foot. No significant stenosis noted. There was calcifications noted throughout but no stenosis. We then removed out the catheter replaced the wire. We deployed a Star close with good hemostasis. He was brought to recovery then in stable condition. Sedation: This 62-year-old gentleman underwent moderate sedation given by Dr. Jerzy Julian. He was monitored EKG blood pressure and pulse ox for over the 30 minutes of the procedure. See the EMR for the complete record.
--- NOTE | 2022-07-08 09:09 | CASEMGMT ---
Discharge Relay Record Clerk Madhuri villagran reached out to [facility]. Left a message in regards to referral and also sent an email to [facility] in regards to referral. Will follow up. Plan: [place], Waiting Acceptance. Madhuri Morgan Discharge Relay Record Clerk
[2022-07-08 09:25] LABS: Bedside Glucose 80 mg/dL (74-106)
--- NOTE | 2022-07-08 09:44 | CASEMGMT ---
Discharge Bi Tester Maria De Jesus with [facility] reached out. Patient has been accepted. Maria De Jesus will start pre-cert today. RICO Chery notified. Plan: [place], Waiting pre-cert. Madhuri Morgan Discharge Bi Tester
--- NOTE | 2022-07-08 09:56 | NURSING ---
pt is currently in microbiological lab technician for a procedure. pt will be in microbiological lab technician until around 12, microbiological lab technician requesting morning meds to be sent down to give to the pt. lyrica 75mg was pulled from accudose machine and hand delivered to microbiological lab technician.
[2022-07-08] MEDS: Losartan Potassium 50 MG Tablet PO (10:06)
[2022-07-08] MEDS: Carvedilol 12.5 MG Tablet PO ×2 (10:06→22:23)
[2022-07-08] MEDS: Aspirin E.C. 81 MG Tablet PO (10:06)
[2022-07-08] MEDS: Finasteride 5 MG Tablet PO (10:07)
[2022-07-08] MEDS: FLUoxetine 20 MG Capsule 60 MG PO (10:07)
[2022-07-08] MEDS: Pregabalin 75 MG Capsule PO ×2 (10:07→22:27)
[2022-07-08] MEDS: Furosemide 40 MG Tablet PO (10:07)
[2022-07-08] MEDS: Clopidogrel Bisulfate 75 MG Tablet PO (10:07)
[2022-07-08] MEDS: amLODIPine 5 MG Tablet PO (10:07)
[2022-07-08] MEDS: Isosorbide Mononitrate 30 MG Tablet PO (10:07)
[2022-07-08] MEDS: Pantoprazole Sodium 20 MG Tablet PO (10:07)
--- NOTE | 2022-07-08 11:35 | CASEMGMT ---
Social Work Pt's fiance, She, called to ask about approval for [facility]. SW notified her that the facility has approved him but insurance precert is still pending. She voiced understanding. Pt is having medical procedure at this time. He will be updated later today when he returns to [facility] floor. Plan: [place], pending precert. MINISTERIO Kennedy
[2022-07-08 12:45] VITALS: BP 158/82; PULSE 68; RESP 18; TEMP 36.3; O2SAT 100
[2022-07-08] MEDS: Nystatin Powder 15gm Bottle 1 APPLIC TOPICAL ×2 (12:51→22:27)
[2022-07-08] MEDS: Insulin Lispro 100 UNIT/ML INSULN.PEN 12 UNIT SC ×2 (12:51→16:47)
[2022-07-08] MEDS: Insulin Lispro 100 UNIT/ML INSULN.PEN SC ×3 (12:52→22:26)
[2022-07-08 13:55] LABS: Bedside Glucose 235 mg/dL (74-106)
--- NOTE | 2022-07-08 14:04 | CASEMGMT ---
Social Work SW on phone with Cathy Aceves, [facility] , and she inquired about pt. RICO informed that pt still admitted to [facility] and is awaiting insurance approval to discharge to [facility]. Cathy appreciative of the update. Requested notice when pt leaves the hospital. MINISTERIO Kennedy
--- NOTE | 2022-07-08 14:38 | PN.HOSP_ITS ---
Subjective Subjective Patient seen and examined. He had no active complaints. he had LLE angiogram today by vascular surgery. Review of systems is otherwise negative. Objective Data Objective Data Vital Signs: Vital Signs Temp Pulse Resp BP Pulse Ox O2 Del Method O2 Flow Rate 98.2 F 55 L 18 167/76 H 99 Nasal Cannula 4 07/08/22 06:00 07/08/22 06:00 07/08/22 06:00 07/08/22 06:00 07/08/22 07:06 07/08/22 12:58 07/08/22 12:58 Oxygen Flow Rate (L/min) 4 Oxygen Delivery Method Nasal Cannula Weight: 288 lb 12.889 oz Body Mass Index (BMI) 41.4 Intake & Output: Intake and Output for Last 24 Hours 07/06/22 07/07/22 07/08/22 23:59 23:59 23:59 Intake Total 1150 / 1150 1250 / 1250 Output Total 1350 / 1350 1600 / 1600 400 / 400 Balance -200 / -200 -350 / -350 -400 / -400 Lab / Micro Data Result Diagrams: 07/08/22 05:45 07/08/22 05:45 Labs: Laboratory Results - last 24 hr 07/07/22 15:57: POC Glucose 135 H 07/07/22 22:15: POC Glucose 110 H 07/08/22 05:45: WBC 9.1, RBC 4.05 L, Hgb 11.4 L, Hct 35.5 L, MCV 87.7, MCH 28.1, MCHC 32.1, RDW Std Deviation 41.7, RDW Coeff of James 13.1, Plt Count 215, MPV 10.8, Immature Gran % (Auto) 0.300, Neut % (Auto) 59.9, Lymph % (Auto) 25.1, [place] % (Auto) 12.6 H, Eos % (Auto) 1.8, Baso % (Auto) 0.3, Absolute Neuts (auto) 5.4, Absolute Lymphs (auto) 2.28, Nucleated RBC % 0 07/08/22 05:45: Sodium 142, Potassium 3.8, Chloride 105, Carbon Dioxide 34.0 H, Anion Gap 3 L, BUN 20 H, Creatinine 1.26, Estim Creat Clear Calc 61.96, Est GFR (MDRD) Af Amer 74, Est GFR (MDRD) Non-Af 61, BUN/Creatinine Ratio 15.9, Glucose 80, Calcium 9.4 07/08/22 07:25: POC Glucose 70 L 07/08/22 09:02: POC Glucose 80 07/08/22 12:46: POC Glucose 235 H Physical Exam Const alert, oriented x3 and no apparent distress HEENT normocephalic, head/scalp atraumatic, moist oral mucous membranes and oropharynx normal Mouth: oral and palatal mucosa normal Eyes PERRL, EOMs intact bilaterally, conjunctivae normal and no scleral icterus Neck no lymphadenopathy, supple and no JVD General: trachea midline Resp normal respiratory effort, normal air movement, no retractions, no use of accessory muscles and clear to auscultation bilaterally Resp Narrative: mildly diminished breath sounds bibasally, no wheezes or crackles. On 4L of oxygen by nasal canula Cardio regular rate, regular rhythm, S1 normal heart sound, S2 normal heart sound, no murmurs and peripheral pulses 2+ throughout GI normal to inspection, nondistended, normoactive bowel sounds, soft to palpation, non-tender and non-distended Extremity normal to inspection, full ROM, normal capillary refill and no clubbing, cyanos is or edema Skin Skin Narrative: Left foot wrapped with surgical dressing Lesions: no lesions Rashes: no rashes Neuro oriented x3, CN's II-XII intact bilaterally, moves all extremities, no focal motor deficits and no sensory deficits noted Sensorium / Orientation: awake Coordination / Balance: [id number] test normal Motor Exam: strength 5/5 throughout Psych cooperative and affect normal Assessment & Plan Assessment/Plan (1) Recurrent falls: (2) Low back pain: PLAN: Plan #Debility due to frequent falls * PT/OT on board * fall precautions. * #Hypokalemia: resolved. K is 3.8. #Left heel ulceration with cellulitis * wound cultures grew MSSA and Enterobacter * on augmentin PO * Scheduled for a vascular surgery procedure on Wednesday * #Type 2 diabetes mellitus * on ISS. Accuchecks ACHS * also on lantus * #Chronic hypoxic respiratory failure due to COPD: on 4L of oxygen. #CAD: s/p stents. On plavix. #Heart failure with preserved ejection fraction: * No acute exacerbation. * On Lasix, Imdur and spironolactone #History of aspiration with dysphagia: Speech therapy on board. On modified diet #Anxiety and depression: On Xanax, paroxetine and buspirone DVT prophylaxis: Lovenox Disposition: awaiting placement in [facility], pending precert Charges/Coding Visit Charges Inpatient E&M: 06599 Subs Hosp L2
[2022-07-08 16:56] VITALS: BP 149/61; PULSE 68; RESP 18; TEMP 36.6; O2SAT 100
[2022-07-08 18:25] LABS: Bedside Glucose 195 mg/dL (74-106)
[2022-07-08 20:19] VITALS: BP 182/89; PULSE 61; RESP 15; TEMP 36.7; O2SAT 100
[2022-07-08] MEDS: Spironolactone 25 MG Tablet PO (22:23)
[2022-07-08] MEDS: traZODone 100 MG Tablet PO (22:24)
[2022-07-08] MEDS: Insulin Glargine-YFGN 100 UNIT/ML Pen 44 UNIT SC (22:26)
[2022-07-08] MEDS: Atorvastatin Calcium 80 MG Tablet PO (22:27)
[2022-07-08] MEDS: Heparin Injection (Vial) 5,000 UNIT/ML VIAL 5000 UNIT SC (22:30)
[2022-07-08 23:20] LABS: Bedside Glucose 165 mg/dL (74-106)
[2022-07-09 02:30] VITALS: BP 159/87; PULSE 60; RESP 14; TEMP 36.3; O2SAT 100
[2022-07-09 05:44] LABS: Absolute Lymphocyte Count 2.32 X10^3/uL (0.83-4.51); Absolute Neutrophil Count 4.5 X10^3/uL (2.0-7.7); Basophil# 0.03 X10^3/uL; Basophil% 0.4 % (0-1); Eosinophil# 0.15 X10^3/uL; Eosinophils% 1.8 % (0-5); Hematocrit 35.3 % (40-54); Hemoglobin 11.4 g/dL (13.0-16.5); Lymphocyte # 2.32 X10^3/ul (0.83-4.51); Lymphocyte % 28.5 % (19-41); Mean Corp Hgb Conc 32.3 g/dL (32-36); Mean Corpuscular Volume 86.7 fL (80-94); Mean Platelet Vol. 10.5 fl (6.2-12.0); Monocyte# 1.08 X10^3/uL; Monocyte% 13.3 % (0-10); NRBC Flagged by Analyzer 0 % (0-5); Neutrophil # 4.53 X10^3/uL (2.7-7.7); Neutrophil % 55.6 % (47-70); Platelet Count 208 K/mm3 (150-450); RBC Distribution Width CV 13.2 % (11.6-14.6); RBC Distribution Width SD 41.2 fl (35.1-43.9); Red Blood Count 4.07 M/mm3 (4.6-6.2); White Blood Count 8.1 K/mm3 (4.4-11.0)
[2022-07-09 06:16] LABS: Anion Gap 3 (5-15); BUN 21 mg/dL (7-18); BUN/Creat Ratio 17.1 RATIO (10-20); Calcium,Total 8.9 mg/dL (8.5-10.1); Chloride 105 mmol/L (98-107); Creatinine, Serum 1.23 mg/dL (0.70-1.30); EST Glomerular Filtration Rate 63 mL/min (>60); Est Glom Filt Rate - Afr Amer 76 mL/min (>60); Estimated Creatinine Clearance 63.47 ml/min; Glucose 151 mg/dL (74-106); Sodium Level 141 mmol/L (136-145)
[2022-07-09] MEDS: busPIRone 15 MG TABLET PO ×3 (06:32→21:47)
[2022-07-09] MEDS: Amox/Clavulanate 875 MG Tablet PO ×2 (06:33→17:33)
[2022-07-09] MEDS: Metoclopramide 5 MG TABLET PO ×3 (06:34→16:09)
[2022-07-09 07:10] LABS: Bedside Glucose 155 mg/dL (74-106)
[2022-07-09 07:11] VITALS: O2SAT 97
[2022-07-09 07:34] VITALS: BP 156/73; PULSE 59; RESP 18; TEMP 36.7; O2SAT 100
[2022-07-09] MEDS: Aspirin E.C. 81 MG Tablet PO (09:37)
[2022-07-09] MEDS: Furosemide 40 MG Tablet PO (09:37)
[2022-07-09] MEDS: Carvedilol 12.5 MG Tablet PO ×2 (09:37→21:47)
[2022-07-09] MEDS: Losartan Potassium 50 MG Tablet PO (09:37)
[2022-07-09] MEDS: Isosorbide Mononitrate 30 MG Tablet PO (09:37)
[2022-07-09] MEDS: Heparin Injection (Vial) 5,000 UNIT/ML VIAL 5000 UNIT SC ×2 (09:37→21:48)
[2022-07-09] MEDS: Nystatin Powder 15gm Bottle 1 APPLIC TOPICAL ×2 (09:38→21:50)
[2022-07-09] MEDS: Finasteride 5 MG Tablet PO (09:39)
[2022-07-09] MEDS: amLODIPine 5 MG Tablet PO (09:39)
[2022-07-09] MEDS: FLUoxetine 20 MG Capsule 60 MG PO (09:39)
[2022-07-09] MEDS: Pantoprazole Sodium 20 MG Tablet PO (09:39)
[2022-07-09] MEDS: Clopidogrel Bisulfate 75 MG Tablet PO (09:39)
[2022-07-09] MEDS: Pregabalin 75 MG Capsule PO ×2 (09:41→21:50)
--- NOTE | 2022-07-09 10:46 | PN.HOSP_ITS ---
Subjective Subjective Patient seen and examined. He has no complaints and had an uneventful night. He is awaiting placement. Review of systems is otherwise negative. Objective Data Objective Data Vital Signs: Vital Signs Temp Pulse Resp BP Pulse Ox O2 Del Method O2 Flow Rate 98.1 F 59 L 18 156/73 H 100 Nasal Cannula 4 07/09/22 07:34 07/09/22 07:34 07/09/22 07:34 07/09/22 07:34 07/09/22 07:34 07/09/22 07:50 07/09/22 07:50 Oxygen Flow Rate (L/min) 4 Oxygen Delivery Method Nasal Cannula Weight: 288 lb 12.889 oz Body Mass Index (BMI) 41.4 Intake & Output: Intake and Output for Last 24 Hours 07/07/22 07/08/22 07/09/22 23:59 23:59 23:59 Intake Total 1250 / 1250 460 / 860 400 / 400 Output Total 1600 / 1600 1000 / 1250 250 / 250 Balance -350 / -350 -540 / -390 150 / 150 Lab / Micro Data Result Diagrams: 07/09/22 05:30 07/09/22 05:30 Labs: Laboratory Results - last 24 hr 07/08/22 12:46: POC Glucose 235 H 07/08/22 16:45: POC Glucose 195 H 07/08/22 22:15: POC Glucose 165 H 07/09/22 05:30: WBC 8.1, RBC 4.07 L, Hgb 11.4 L, Hct 35.3 L, MCV 86.7, MCH 28.0, MCHC 32.3, RDW Std Deviation 41.2, RDW Coeff of James 13.2, Plt Count 208, MPV 10.5, Immature Gran % (Auto) 0.400, Neut % (Auto) 55.6, Lymph % (Auto) 28.5, [place] % (Auto) 13.3 H, Eos % (Auto) 1.8, Baso % (Auto) 0.4, Absolute Neuts (auto) 4.5, Absolute Lymphs (auto) 2.32, Nucleated RBC % 0 07/09/22 05:30: Sodium 141, Potassium 4.0, Chloride 105, Carbon Dioxide 33.0 H, Anion Gap 3 L, BUN 21 H, Creatinine 1.23, Estim Creat Clear Calc 63.47, Est GFR (MDRD) Af Amer 76, Est GFR (MDRD) Non-Af 63, BUN/Creatinine Ratio 17.1, Glucose 151 H, Calcium 8.9 07/09/22 06:30: POC Glucose 155 H Physical Exam Const alert, oriented x3 and no apparent distress HEENT normocephalic, head/scalp atraumatic, moist oral mucous membranes and oropharynx normal Eyes PERRL, EOMs intact bilaterally, conjunctivae normal and no scleral icterus Neck no lymphadenopathy, supple and no JVD General: trachea midline Resp normal respiratory effort, normal air movement, no retractions, no use of accessory muscles and clear to auscultation bilaterally Resp Narrative: On 4L of oxygen by nasal canula, which is his baseline Cardio regular rate, regular rhythm, S1 normal heart sound, S2 normal heart sound, no murmurs and peripheral pulses 2+ throughout GI normal to inspection, nondistended, normoactive bowel sounds, soft to palpation, non-tender and non-distended Extremity normal to inspection, full ROM, normal capillary refill and no clubbing, cyanosis or edema Skin Skin Narrative: Left foot wrapped with surgical dressing Lesions: no lesions Rashes: no rashes Neuro oriented x3, CN's II-XII intact bilaterally, moves all extremities, no focal motor deficits and no sensory deficits noted Sensorium / Orientation: awake Coordination / Balance: [id number] test normal Motor Exam: strength 5/5 throughout Psych cooperative and affect normal Assessment & Plan Assessment/Plan (1) Recurrent falls: (2) Low back pain: PLAN: Plan #Debility due to frequent falls * PT/OT on board * fall precautions. * #Hypokalemia: resolved. K is 4 #Left heel ulceration with cellulitis * wound cultures grew MSSA and Enterobacter * on augmentin PO * Scheduled for a vascular surgery procedure on Wednesday * #Type 2 diabetes mellitus * on ISS. Accuchecks ACHS * also on lantus * #Chronic hypoxic respiratory failure due to COPD: on 4L of oxygen. #CAD: s/p stents. On plavix. #Heart failure with preserved ejection fraction: * No acute exacerbation. * On Lasix, Imdur and spironolactone #History of aspiration with dysphagia: Speech therapy on board. On modified diet #Anxiety and depression: On Xanax, paroxetine and buspirone DVT prophylaxis: Lovenox Disposition: awaiting placement in [facility], pending precert Charges/Coding Visit Charges Inpatient E&M: 59110 Subs Hosp L2
[2022-07-09] MEDS: Insulin Lispro 100 UNIT/ML INSULN.PEN 12 UNIT SC ×3 (11:10→21:48)
[2022-07-09] MEDS: Insulin Lispro 100 UNIT/ML INSULN.PEN SC ×2 (11:11→16:04)
[2022-07-09 11:45] LABS: Bedside Glucose 235 mg/dL (74-106)
[2022-07-09 13:45] VITALS: BP 148/67; PULSE 58; RESP 18; TEMP 36.7; O2SAT 99
--- NOTE | 2022-07-09 14:24 | CASEMGMT ---
Social Work SW met with pt and significant other and updated that preauth has not been obtained yet. Pt upset stating he does not want to stay in the hospital one more night. SW informed pt that this worker nor hospital have control over how fast insurance reviews case and give authorization. Phone call to Madhuri, discharge real estate administrative assistant, who states she spoke [place] and they will reach out to insurance to check on precert. Plan: [place], pending precert MINISTERIO Gallagher
--- NOTE | 2022-07-09 15:22 | CASEMGMT ---
Discharge Foiling Machine Operator Madhuri reached out to [facility] again regarding pre-cert. Madhuri has not been able to get an answer from [facility]. Madhuri called RICO Hayes and Abigail was going to try and call. Plan: [facility] Brink Pre-cert Madhuri Morgan Discharge Foiling Machine Operator
--- NOTE | 2022-07-09 15:48 | CASEMGMT ---
Social Work Phone call to Darling at [facility] and requesting update on precert for pt. Darling states she does not know status. RICO requested she check on the precert as soon as possible as pt is ready for discharge at this time. [facility] requesting referral be refaxed. RICO informed Darling that per communication from Maria De Jesus at [facility], precert was started yesterday at 9:30 am. Darling to check into precert and phone this SW back. Clinicals sent to [facility]. MINISTERIO Gallagher
[2022-07-09 16:50] LABS: Bedside Glucose 222 mg/dL (74-106)
--- NOTE | 2022-07-09 17:07 | NURSING ---
Pt drank 200ml of golytely and is now refusing it. made aware
[2022-07-09 17:08] VITALS: BP 163/85; PULSE 78; RESP 18; TEMP 36.8; O2SAT 100
[2022-07-09 21:40] VITALS: BP 166/91; PULSE 61; RESP 15; TEMP 36.9; O2SAT 98
[2022-07-09] MEDS: Spironolactone 25 MG Tablet PO (21:47)
[2022-07-09] MEDS: traZODone 100 MG Tablet PO (21:47)
[2022-07-09] MEDS: Insulin Glargine-YFGN 100 UNIT/ML Pen 44 UNIT SC (21:49)
[2022-07-09] MEDS: Atorvastatin Calcium 80 MG Tablet PO (21:49)
[2022-07-09 22:45] LABS: Bedside Glucose 154 mg/dL (74-106)
[2022-07-10 03:45] VITALS: BP 151/73; PULSE 81; RESP 14; TEMP 36.4; O2SAT 99
[2022-07-10] MEDS: busPIRone 15 MG TABLET PO ×2 (05:28→15:30)
[2022-07-10] MEDS: Amox/Clavulanate 875 MG Tablet PO (05:29)
[2022-07-10 05:55] LABS: Absolute Lymphocyte Count 2.13 X10^3/uL (0.83-4.51); Absolute Neutrophil Count 4.7 X10^3/uL (2.0-7.7); Basophil# 0.03 X10^3/uL; Basophil% 0.4 % (0-1); Eosinophil# 0.16 X10^3/uL; Hematocrit 35.2 % (40-54); Hemoglobin 11.2 g/dL (13.0-16.5); Lymphocyte # 2.13 X10^3/ul (0.83-4.51); Lymphocyte % 26.4 % (19-41); Mean Corp Hgb Conc 31.8 g/dL (32-36); Mean Corpuscular Hgb 27.5 pg (27.0-32.0); Mean Corpuscular Volume 86.5 fL (80-94); Mean Platelet Vol. 10.6 fl (6.2-12.0); Monocyte% 12.4 % (0-10); NRBC Flagged by Analyzer 0 % (0-5); Neutrophil # 4.74 X10^3/uL (2.7-7.7); Neutrophil % 58.6 % (47-70); Platelet Count 206 K/mm3 (150-450); RBC Distribution Width SD 40.5 fl (35.1-43.9); Red Blood Count 4.07 M/mm3 (4.6-6.2); White Blood Count 8.1 K/mm3 (4.4-11.0)
[2022-07-10] MEDS: Metoclopramide 5 MG TABLET PO ×3 (06:33→16:05)
[2022-07-10 06:45] LABS: Anion Gap 4 (5-15); BUN 22 mg/dL (7-18); BUN/Creat Ratio 18.8 RATIO (10-20); Calcium,Total 8.9 mg/dL (8.5-10.1); Chloride 103 mmol/L (98-107); Creatinine, Serum 1.17 mg/dL (0.70-1.30); EST Glomerular Filtration Rate 67 mL/min (>60); Est Glom Filt Rate - Afr Amer 81 mL/min (>60); Estimated Creatinine Clearance 66.73 ml/min; Glucose 132 mg/dL (74-106); Potassium 3.7 mmol/L (3.5-5.1); Sodium Level 139 mmol/L (136-145)
--- NOTE | 2022-07-10 07:41 | CASEMGMT ---
Addendum entered by Abigail Chou 07/10/22 11:10: Social Work Pt requesting to see SW. SW met with pt and pt very frustrated that he is still in hosptial and insurance precert has not been obtained. Pt called explosive ordnance disposal manager with SW in the room and explained frustration. CM informed pt that she does not handle precerts as this is a different department. SW reassured pt that RICO will call [place] to check on precert. ZAHRAA left for Darling at [facility] requesting update on precert. MINISTERIO Gallagher Original Note: Social Work Email received from Darling at [facility]. Precert had not been started when originally stated. Precert started last evening at 5pm. [facility] aware that pt is ready for discharge. RICO to continue to follow. Plan: [place], pending precert MINISTERIO Gallagher
[2022-07-10 07:42] VITALS: O2SAT 98
[2022-07-10 07:50] VITALS: BP 168/74; PULSE 60; RESP 16; TEMP 36.6; O2SAT 97
[2022-07-10 09:10] LABS: Bedside Glucose 141 mg/dL (74-106)
[2022-07-10] MEDS: 0.9% Saline Lock 10 ML Syringe IV (09:13)
[2022-07-10] MEDS: Insulin Lispro 100 UNIT/ML INSULN.PEN 12 UNIT SC ×2 (09:14→12:39)
[2022-07-10] MEDS: Furosemide 40 MG Tablet PO (09:15)
[2022-07-10] MEDS: Losartan Potassium 50 MG Tablet PO (09:15)
[2022-07-10] MEDS: FLUoxetine 20 MG Capsule 60 MG PO (09:15)
[2022-07-10] MEDS: amLODIPine 5 MG Tablet PO (09:15)
[2022-07-10] MEDS: Clopidogrel Bisulfate 75 MG Tablet PO (09:15)
[2022-07-10] MEDS: Aspirin E.C. 81 MG Tablet PO (09:15)
[2022-07-10] MEDS: Pantoprazole Sodium 20 MG Tablet PO (09:15)
[2022-07-10] MEDS: Carvedilol 12.5 MG Tablet PO (09:15)
[2022-07-10] MEDS: Isosorbide Mononitrate 30 MG Tablet PO (09:15)
[2022-07-10] MEDS: Nystatin Powder 15gm Bottle 1 APPLIC TOPICAL (09:16)
[2022-07-10] MEDS: Finasteride 5 MG Tablet PO (09:16)
[2022-07-10] MEDS: Heparin Injection (Vial) 5,000 UNIT/ML VIAL 5000 UNIT SC (09:16)
[2022-07-10] MEDS: Pregabalin 75 MG Capsule PO (09:18)
--- NOTE | 2022-07-10 09:21 | PN.HOSP_ITS ---
Subjective Subjective Patient seen and examined. He had no active complaints and had an uneventful night. Review of systems is otherwise negative. He is awaiting placement. Objective Data Objective Data Vital Signs: Vital Signs Temp Pulse Resp BP Pulse Ox O2 Del Method O2 Flow Rate 97.5 F L 81 14 151/73 H 98 Nasal Cannula 4 07/10/22 03:45 07/10/22 03:45 07/10/22 03:45 07/10/22 03:45 07/10/22 07:42 07/10/22 07:42 07/10/22 07:42 Oxygen Flow Rate (L/min) 4 Oxygen Delivery Method Nasal Cannula Weight: 288 lb 12.889 oz Body Mass Index (BMI) 41.4 Intake & Output: Intake and Output for Last 24 Hours 07/08/22 07/09/22 07/10/22 23:59 23:59 23:59 Intake Total 460 / 860 1000 / 1500 500 / 500 Output Total 1000 / 1250 1200 / 2400 1300 / 1300 Balance -540 / -390 -200 / -900 -800 / -800 Lab / Micro Data Result Diagrams: 07/10/22 05:48 07/10/22 05:48 Labs: Laboratory Results - last 24 hr 07/09/22 11:08: POC Glucose 235 H 07/09/22 16:02: POC Glucose 222 H 07/09/22 21:45: POC Glucose 154 H 07/10/22 05:48: WBC 8.1, RBC 4.07 L, Hgb 11.2 L, Hct 35.2 L, MCV 86.5, MCH 27.5, MCHC 31.8 L, RDW Std Deviation 40.5, RDW Coeff of James 13.0, Plt Count 206, MPV 10.6, Immature Gran % (Auto) 0.200, Neut % (Auto) 58.6, Lymph % (Auto) 26.4, [place] % (Auto) 12.4 H, Eos % (Auto) 2.0, Baso % (Auto) 0.4, Absolute Neuts (auto) 4.7, Absolute Lymphs (auto) 2.13, Nucleated RBC % 0 07/10/22 05:48: Sodium 139, Potassium 3.7, Chloride 103, Carbon Dioxide 32.0, Anion Gap 4 L, BUN 22 H, Creatinine 1.17, Estim Creat Clear Calc 66.73, Est GFR (MDRD) Af Amer 81, Est GFR (MDRD) Non-Af 67, BUN/Creatinine Ratio 18.8, Glucose 132 H, Calcium 8.9 07/10/22 07:53: POC Glucose 141 H Physical Exam Const alert, oriented x3 and no apparent distress HEENT normocephalic, head/scalp atraumatic, moist oral mucous membranes and oropharynx normal Eyes PERRL, EOMs intact bilaterally, conjunctivae normal and no scleral icterus Neck no lymphadenopathy, supple and no JVD General: trachea midline Resp normal respiratory effort, normal air movement, no retractions, no use of accessory muscles and clear to auscultation bilaterally Resp Narrative: On 4L of oxygen by nasal canula, which is his baseline Cardio regular rate, regular rhythm, S1 normal heart sound, S2 normal heart sound, no murmurs and peripheral pulses 2+ throughout GI normal to inspection, nondistended, normoactive bowel sounds, soft to palpation, non-tender and non-distended Extremity normal to inspection, full ROM, normal capillary refill and no clubbing, cyanosis or edema Skin Skin Narrative: Left foot wrapped with surgical dressing Lesions: no lesions Rashes: no rashes Neuro oriented x3, CN's II-XII intact bilaterally, moves all extremities, no focal motor deficits and no sensory deficits noted Sensorium / Orientation: awake Coordination / Balance: [id number] test normal Motor Exam: strength 5/5 throughout Psych cooperative and affect normal Assessment & Plan Assessment/Plan (1) Recurrent falls: (2) Low back pain: PLAN: Plan #Debility due to frequent falls * PT/OT on board * fall precautions. * #Hypokalemia: resolved. #Left heel ulceration with cellulitis in the setting of periphral artery disease * wound cultures grew MSSA and Enterobacter * completed a course of augmentin * s/p LLE angiogram with no evidence of stenosis * #Type 2 diabetes mellitus * on ISS. Accuchecks ACHS * also on lantus * #Chronic hypoxic respiratory failure due to COPD: on 4L of oxygen. #CAD: s/p stents. On plavix. #Heart failure with preserved ejection fraction: * No acute exacerbation. * On Lasix, Imdur and spironolactone #History of aspiration with dysphagia: Speech therapy on board. On modified diet #Anxiety and depression: On Xanax, paroxetine and buspirone DVT prophylaxis: Lovenox Disposition: awaiting placement in [facility], pending precert Charges/Coding Visit Charges Inpatient E&M: 32916 Subs Hosp L2
--- NOTE | 2022-07-10 12:24 | CASEMGMT ---
Addendum entered by Adriana Fernando 07/10/22 13:50: Received tc back from Jessica, states [facility] cannot accept pt as he is more care than they can provide in the home. Original Note: TC to [facility], spoke to Jessica who states they have dc'd pt from services. Made aware that [facility] made aware that pt wants to leave today by 5pm if he does not have precert for [place]. She will review to see if able to accept pt back for services and call RN LIZETT after review.
[2022-07-10] MEDS: Insulin Lispro 100 UNIT/ML INSULN.PEN SC (12:40)
[2022-07-10 12:51] LABS: Bedside Glucose 177 mg/dL (74-106)
--- NOTE | 2022-07-10 14:12 | CASEMGMT ---
Addendum entered by Abigail Chou 07/10/22 15:50: Social Work Pt is ready for discharge at this time. PASRR completed in [facility] and to be faxed along with orders to [place]. Transportation arranged with [facility] for 4:30 picking tech via [place]. SW met with pt and significant other and informed of discharge time of 4:30. Pt appreciative of information and agreeable to d/c time. Nursing updated. Disposition: [facility], skilled level of care MINISTERIO Gallagher Original Note: Social Work Call received from [place] and precert has been obtained. Pt can discharge today. SW met with pt and significant other and notified of precert. Pt is very happy about this. Physician notified and plans to discharge pt today. Nursing notified and will obtain covid test. MINISTERIO Gallagher
--- NOTE | 2022-07-10 14:27 | PCM.DC.SUM ---
Providers Date of Admission: 07/04/22 Date of Discharge: 07/10/22 Primary Care Physician: Dr. Doretha Brown MD Reason For Visit: DEBILITY Diagnosis Discharge Diagnosis (1) Recurrent falls: Status: Acute Code(s): R29.6 - Repeated falls (2) Low back pain: Status: Acute Code(s): M54.50 - Low back pain, unspecified Plan #Debility due to frequent falls PT/OT on board fall precautions. #Hypokalemia: resolved. #Left heel ulceration with cellulitis in the setting of periphral artery disease wound cultures grew MSSA and Enterobacter completed a course of augmentin s/p LLE angiogram with no evidence of stenosis #Type 2 diabetes mellitus on ISS. Accuchecks ACHS also on lantus #Chronic hypoxic respiratory failure due to COPD: on 4L of oxygen. #CAD: s/p stents. On plavix. #Heart failure with preserved ejection fraction: No acute exacerbation. On Lasix, Imdur and spironolactone #History of aspiration with dysphagia: Speech therapy on board. On modified diet #Anxiety and depression: On Xanax, paroxetine and buspirone DVT prophylaxis: Lovenox Disposition: awaiting placement in [facility], pending precert Medications at Discharge Home Medications acetaminophen 500 mg tablet 1,000 mg PO QHS PRN PRN Pain 1-10 Or Fever 02/11/21 aspirin 81 mg tablet,delayed release (Adult Aspirin Regimen) 81 mg PO DAILY heart health 11/05/21 spironolactone 25 mg tablet 25 mg PO QHS diuretic 11/08/21 peg [id number] 1 %-0.2 %-0.2 % eye drops (Artificial Tears ([id number])) 2 drp EACH EYE Q1H PRN DRY EYES #0 mL 11/14/21 nitroglycerin 0.4 mg sublingual tablet 0.4 mg sublingual Q5M PRN Chest Pain #30 tabs 11/25/21 atorvastatin 80 mg tablet 80 mg PO QHS cholesterol #90 tabs 01/09/22 finasteride 5 mg tablet 5 mg PO DAILY prostate #90 tabs 01/09/22 furosemide 40 mg tablet 40 mg PO DAILY fluid #90 tabs 01/09/22 albuterol sulfate 90 mcg/actuation aerosol inhaler 2 puff inhalation Q4H PRN shortness of breath or wheezing #8.5 grams 02/04/22 pantoprazole 20 mg tablet,delayed release 20 mg PO DAILY gerd 02/04/22 carvedilol 12.5 mg tablet 12.5 mg PO BID heart #180 tabs 02/05/22 losartan 50 mg tablet 50 mg PO DAILY bp 03/21/22 clopidogrel 75 mg tablet 75 mg PO DAILY blood thinner #90 tabs 03/30/22 isosorbide mononitrate 30 mg tablet,extended release 24 hr 30 mg PO DAILY heart #90 tabs 03/30/22 amlodipine 5 mg tablet 5 mg PO DAILY bp 05/21/22 loratadine 10 mg tablet (Allergy Relief (loratadine)) 10 mg PO DAILY allergies 05/21/22 insulin detemir U-100 100 unit/mL (3 mL) subcutaneous pen 44 unit (0.44 mL) subcut QHS dm #15 mL 05/26/22 pregabalin 75 mg capsule (Lyrica) 75 mg PO BID nerve pain #60 caps 06/09/22 buspirone 7.5 mg tablet 15 mg PO TID mood #90 tabs 07/03/22 clonazepam 1 mg tablet 1 mg PO BID PRN PRN anxiety #14 tabs 07/03/22 fluoxetine 20 mg capsule 60 mg PO DAILY #0 caps 07/03/22 gauze bandage 4 X 4 (Bordered Gauze) #14 ea 07/03/22 insulin lispro 100 unit/mL subcutaneous pen (Humalog KwikPen (U-100) Insulin) 12 unit (0.12 mL) subcut ACHS #0 mL 07/03/22 metoclopramide HCl 5 mg tablet 5 mg PO TID #0 tabs 07/03/22 nystatin 100,000 unit/gram topical powder (Nyamyc) 1 applic topical BID #0 grams 07/03/22 trazodone 100 mg tablet 100 mg PO QHS #0 tabs 07/03/22 Hospital Course Operations None Procedures Angiogram Summary of Care Provided Minutes Spent on Discharge: 45 Hospital Course: Patient is a 62-year-old male with a past medical history as outlined who was admitted through the ED with a complaint of mechanical fall. He was admitted on 07/04/2022 and he apparently fell when he was living in his [place] [facility]. He has been unhappy with his care there and so he tried to leave and get into the parking lot he fell and was brought to the ED. He did not have any other acute problems. He was admitted and managed for debility due to mechanical fall. PT OT was consulted. Plan was for patient to be placed in a different [place] [facility] care facility. He did have angiogram of his left lower extremity by vascular surgery during the course of this admission as this had been a procedure that had been planned before he was admitted. Angiogram showed no evidence of any blockage. He completed a course of Augmentin for left heel chronic ulceration with cellulitis based on wound cultures growing MSSA and Enterobacter. Patient remained stable and after acquiring pre-CERT on 07/10/2022, [facility]. He is to follow-up with his primary care doctor within 1 to 2 weeks and also follow up at the wound clinic. Patient seen and examined prior to discharge. He had no active complaints and had an uneventful night. Review of systems otherwise negative. Labs and vitals reviewed. Home medication reviewed and reconciled. Physical Exam Const alert, oriented x3 and no apparent distress General Appearance: cooperative, comfortable and well kempt Orientation / Consciousness: awake Exam Limitations: no limitations HEENT normocephalic, head/scalp atraumatic, hearing grossly normal bilaterally, moist oral mucous membranes and oropharynx normal Mouth: oral and palatal mucosa normal Eyes PERRL, EOMs intact bilaterally, conjunctivae normal and no scleral icterus Neck no lymphadenopathy, supple and no JVD General: trachea midline Resp normal respiratory effort, normal air movement, no retractions, no use of accessory muscles and clear to auscultation bilaterally Resp Narrative: On 4L of oxygen by nasal canula, which is his baseline Cardio regular rate, regular rhythm, S1 normal heart sound, S2 normal heart sound, no murmurs and peripheral pulses 2+ throughout GI normal to inspection, nondistended, normoactive bowel sounds, soft to palpation, non-tender and non-distended Extremity normal to inspection, full ROM, normal capillary refill and no clubbing, cyanosis or edema Skin Skin Narrative: Left foot wrapped with surgical dressing Lesions: no lesions Rashes: no rashes Neuro oriented x3, CN's II-XII intact bilaterally, moves all extremities, no focal motor deficits and no sensory deficits noted Sensorium / Orientation: awake Coordination / Balance: [id number] test normal Motor Exam: strength 5/5 throughout Psych cooperative and affect normal Weight / BMI Weight Weight: 288 lb 12.889 oz Body Mass Index (BMI) 41.4 ABG / Lab / Microbiology Data Result Diagrams: 07/10/22 05:48 07/10/22 05:48 Laboratory: Laboratory Results - last 24 hr 07/09/22 16:02: POC Glucose 222 H 07/09/22 21:45: POC Glucose 154 H 07/10/22 05:48: WBC 8.1, RBC 4.07 L, Hgb 11.2 L, Hct 35.2 L, MCV 86.5, MCH 27.5, MCHC 31.8 L, RDW Std Deviation 40.5, RDW Coeff of James 13.0, Plt Count 206, MPV 10.6, Immature Gran % (Auto) 0.200, Neut % (Auto) 58.6, Lymph % (Auto) 26.4, Tyrrell % (Auto) 12.4 H, Eos % (Auto) 2.0, Baso % (Auto) 0.4, Absolute Neuts (auto) 4.7, Absolute Lymphs (auto) 2.13, Nucleated RBC % 0 07/10/22 05:48: Sodium 139, Potassium 3.7, Chloride 103, Carbon Dioxide 32.0, Anion Gap 4 L, BUN 22 H, Creatinine 1.17, Estim Creat Clear Calc 66.73, Est GFR (MDRD) Af Amer 81, Est GFR (MDRD) Non-Af 67, BUN/Creatinine Ratio 18.8, Glucose 132 H, Calcium 8.9 07/10/22 07:53: POC Glucose 141 H 07/10/22 11:50: POC Glucose 177 H D/C Instructions Discharge Diet: Low fat / Low cholesterol and 1800 Calorie Control Diet Discharge Activity: Return to Normal Activity Weight Bearing Status: Weight bearing as tolerated Call your doctor if you observe: Fever of 101 or Higher, Shortness of breath, Dizziness, Swelling in the ankles, Chest pain, Increased palpitations (irregular heartbeat) and Uncontrolled pain Meaningful Use Info Meaningful Use Diagnoses (Choose all that apply): None applicable Discharge Plan Admission Admit Date/Time: 07/04/22 16:25 Primary Reason for Your Visit: debility due to mechanical falls Attending Provider: Nona Salcedo Primary Care Provider: Doretha Brown Consulting Providers: Rubio Miller Instructions Patient Instructions: ED Mechanical Fall, ED Fall Prevention Discharge Orders/Prescriptions Prescriptions: Continued aspirin [Adult Aspirin Regimen] 81 mg tablet,delayed release (DR/EC) 81 mg PO DAILY atorvastatin 80 mg tablet 80 mg PO QHS Qty: 90 2RF furosemide 40 mg tablet 40 mg PO DAILY Qty: 90 3RF finasteride 5 mg tablet 5 mg PO DAILY Qty: 90 3RF pantoprazole 20 mg tablet,delayed release (DR/EC) 20 mg PO DAILY albuterol sulfate 90 mcg/actuation HFA aerosol inhaler 2 puff inhalation Q4H PRN (Reason: shortness of breath or wheezing) Qty: 8.5 3RF Rx Instructions: administer with spacer carvedilol 12.5 mg tablet 12.5 mg PO BID Qty: 180 3RF loratadine [Allergy Relief (loratadine)] 10 mg tablet 10 mg PO DAILY acetaminophen 500 MG tablet 1,000 mg PO QHS PRN PRN (Reason: Pain 1-10 Or Fever) spironolactone 25 mg tablet 25 mg PO QHS Artificial Tears([id number]) 1-0.2-0.2 % Drops 2 drp EACH EYE Q1H PRN (Reason: DRY EYES) Qty: 0 0RF losartan 50 mg tablet 50 mg PO DAILY amlodipine 5 mg tablet 5 mg PO DAILY clonazepam 1 mg Tablet 1 mg PO BID PRN PRN (Reason: anxiety) Qty: 14 0RF trazodone 100 mg Tablet 100 mg PO QHS Qty: 0 0RF insulin lispro [Humalog KwikPen Insulin] 100 unit/mL Insulin Pen 12 unit subcut ACHS Qty: 0 0RF metoclopramide HCl 5 mg Tablet 5 mg PO TID Qty: 0 0RF nystatin [Nyamyc] 100,000 unit/gram Powder 1 applic topical BID Qty: 0 0RF Protocol: *Topical Application Instructions APPLICATION INSTRUCTIONS: to groin fluoxetine 20 mg Capsule 60 mg PO DAILY Qty: 0 0RF buspirone 7.5 mg tablet 15 mg PO TID Qty: 90 2RF (DME) gauze bandage [Bordered Gauze] 4 X 4 bandage See Rx Instructions .ROUTE .MEDSUPPLY Qty: 14 2RF Rx Instructions: Daily cleanse left foot wound with soap and water, dry and apply Betadine solution and apply clean dressing nitroglycerin 0.4 mg tablet, sublingual 0.4 mg SL Q5M PRN (Reason: Chest Pain) Qty: 30 0RF clopidogrel 75 mg tablet 75 mg PO DAILY Qty: 90 3RF isosorbide mononitrate 30 mg tablet extended release 24 hr 30 mg PO DAILY Qty: 90 3RF insulin detemir U-100 100 unit/mL (3 mL) insulin pen 44 unit subcut QHS Qty: 15 1RF pregabalin [Lyrica] 75 mg capsule 75 mg PO BID Qty: 60 1RF Discontinued doxycycline hyclate 100 mg capsule 100 mg PO BID Qty: 20 0RF amoxicillin-pot clavulanate 875-125 mg tablet 1 tab PO BID Qty: 20 0RF Referrals / Follow Up: Doretha Brown MD [Primary Care Provider] - Within 2 Weeks Disposition Disposition (needs filled in before D/C Order can be placed): [facility]ustodial Facility Charges/Coding Visit Charges Inpatient E&M: 67711 Disch Hosp
--- NOTE | 2022-07-10 14:40 | TREXTCAR_ITS ---
Diet Diet Order/Speech Therapy: 07/04/22 17:36 Diet: Consistent Carb - Calorie Controlled Food consistency:: Regular Liquid Consistency:: Regular/Thin Dietary Modifications:: Cardiac / Heart Healthy Type of Dietary Supplement:: Glucerna Shake Diet Comments: 4 oz strawberry GS w/ meals tid How many daily calories?: 1800 calorie Routine Orders/Code Status Enema Type: Fleetz Enema Frequency: Daily PRN Suppository Type: Dulcolax 10mg Suppository Frequency: Daily PRN O2 Frequency: PRN Wound(s) lt foot: Wound Type: Neuropathic/Diabetic Foot Ulcer Therapies Weight Bearing: Weight bearing as tolerated Physical Therapy: Eval and Treat Occupational Therapy: Eval and Treat Problem/Diagnosis (1) Recurrent falls: Status: Acute Code(s): R29.6 - Repeated falls (2) Low back pain: Status: Acute Code(s): M54.50 - Low back pain, unspecified Plan #Debility due to frequent falls * PT/OT on board * fall precautions. * #Hypokalemia: resolved. #Left heel ulceration with cellulitis in the setting of periphral artery disease * wound cultures grew MSSA and Enterobacter * completed a course of augmentin * s/p LLE angiogram with no evidence of stenosis * #Type 2 diabetes mellitus * on ISS. Accuchecks ACHS * also on lantus * #Chronic hypoxic respiratory failure due to COPD: on 4L of oxygen. #CAD: s/p stents. On plavix. #Heart failure with preserved ejection fraction: * No acute exacerbation. * On Lasix, Imdur and spironolactone #History of aspiration with dysphagia: Speech therapy on board. On modified diet #Anxiety and depression: On Xanax, paroxetine and buspirone DVT prophylaxis: Lovenox Disposition: awaiting placement in [facility], pending precert Allergies/Procedures Done in Hospital Allergies allopurinol Adverse Reaction (Verified 07/04/22 14:53) Vomiting Influenza Virus Vaccines Adverse Reaction (Verified 07/04/22 14:53) Vomiting pneumococcal vaccine Adverse Reaction (Verified 07/04/22 14:53) Vomiting Procedures: None Type of Care/Length of Stay Estimated LOS: Convalescent Care Less Than 30 days Type of Care Needed: Skilled Rehab Potential: Fair Prognosis: Fair Additional Orders/Day of Discharge Day of Discharge: 07/10/22 Dietary and Speech Recommendations Dietitian Recommendations/Changes: Will change diet to 1800 kimber CHO Controlled / Cardiac diet - no consistency change per pt request that he will cut food himself. Will provide strawberry Glucerna Shake 4 oz w/ meals tid. Discharge Plan Admission Admit Date/Time: 07/04/22 16:25 Primary Reason for Your Visit: debility due to mechanical falls Attending Provider: Nona Salcedo Primary Care Provider: Doretha Brown Consulting Providers: Rubio Miller Instructions Patient Instructions: ED Mechanical Fall, ED Fall Prevention Discharge Orders/Prescriptions Prescriptions: Continued aspirin [Adult Aspirin Regimen] 81 mg tablet,delayed release (DR/EC) 81 mg PO DAILY atorvastatin 80 mg tablet 80 mg PO QHS Qty: 90 2RF furosemide 40 mg tablet 40 mg PO DAILY Qty: 90 3RF finasteride 5 mg tablet 5 mg PO DAILY Qty: 90 3RF pantoprazole 20 mg tablet,delayed release (DR/EC) 20 mg PO DAILY albuterol sulfate 90 mcg/actuation HFA aerosol inhaler 2 puff inhalation Q4H PRN (Reason: shortness of breath or wheezing) Qty: 8.5 3RF Rx Instructions: administer with spacer carvedilol 12.5 mg tablet 12.5 mg PO BID Qty: 180 3RF loratadine [Allergy Relief (loratadine)] 10 mg tablet 10 mg PO DAILY acetaminophen 500 MG tablet 1,000 mg PO QHS PRN PRN (Reason: Pain 1-10 Or Fever) spironolactone 25 mg tablet 25 mg PO QHS Artificial Tears([id number]) 1-0.2-0.2 % Drops 2 drp EACH EYE Q1H PRN (Reason: DRY EYES) Qty: 0 0RF losartan 50 mg tablet 50 mg PO DAILY amlodipine 5 mg tablet 5 mg PO DAILY clonazepam 1 mg Tablet 1 mg PO BID PRN PRN (Reason: anxiety) Qty: 14 0RF trazodone 100 mg Tablet 100 mg PO QHS Qty: 0 0RF insulin lispro [Humalog KwikPen Insulin] 100 unit/mL Insulin Pen 12 unit subcut ACHS Qty: 0 0RF metoclopramide HCl 5 mg Tablet 5 mg PO TID Qty: 0 0RF nystatin [Nyamyc] 100,000 unit/gram Powder 1 applic topical BID Qty: 0 0RF Protocol: *Topical Application Instructions APPLICATION INSTRUCTIONS: to groin fluoxetine 20 mg Capsule 60 mg PO DAILY Qty: 0 0RF buspirone 7.5 mg tablet 15 mg PO TID Qty: 90 2RF (DME) gauze bandage [Bordered Gauze] 4 X 4 bandage See Rx Instructions .ROUTE .MEDSUPPLY Qty: 14 2RF Rx Instructions: Daily cleanse left foot wound with soap and water, dry and apply Betadine solution and apply clean dressing nitroglycerin 0.4 mg tablet, sublingual 0.4 mg SL Q5M PRN (Reason: Chest Pain) Qty: 30 0RF clopidogrel 75 mg tablet 75 mg PO DAILY Qty: 90 3RF isosorbide mononitrate 30 mg tablet extended release 24 hr 30 mg PO DAILY Qty: 90 3RF insulin detemir U-100 100 unit/mL (3 mL) insulin pen 44 unit subcut QHS Qty: 15 1RF pregabalin [Lyrica] 75 mg capsule 75 mg PO BID Qty: 60 1RF Discontinued doxycycline hyclate 100 mg capsule 100 mg PO BID Qty: 20 0RF amoxicillin-pot clavulanate 875-125 mg tablet 1 tab PO BID Qty: 20 0RF Referrals / Follow Up: Doretha Brown MD [Primary Care Provider] - Within 2 Weeks Disposition Disposition (needs filled in before D/C Order can be placed[facility]
--- NOTE | 2022-07-10 15:30 | CASEMGMT ---
Faxed DC information with signed med list to rafael Brink placed in packet and copy in front of chart.
--- NOTE | 2022-07-10 15:56 | NURSING ---
report called to Sarah Brink, she requested we ensure that there is a hard copy script for tatyana sent with patient.
[2022-07-10 16:00] VITALS: BP 146/76; PULSE 61; RESP 16; TEMP 36.8; O2SAT 99
--- NOTE | 2022-07-13 09:04 | CASEMGMT ---
Social Work SW updated Cathy Aceves, Direction Home Planning Lead, that pt was discharged to [facility] on 07/10/22. Discharge instructions faxed. MINISTERIO Gallagher
== END 2022-07-10 16:20 | disposition skilled nursing facility (03) ==
LOC: ED 16:25 → MS3 16:55
PROVIDERS: Admitting Provider Internal Medicine; Emergency Provider Student in an Organized Health Care Education/Training Program; PCP Internal Medicine; Visit Provider Student in an Organized Health Care Education/Training Program
DX: R53.81 Other malaise (principal); E11.621 Type 2 diabetes mellitus with foot ulcer; E11.51 Type 2 diabetes mellitus with diabetic peripheral angiopathy without gangrene; L97.421 Non-pressure chronic ulcer of left heel and midfoot limited to breakdown of skin; J44.9 Chronic obstructive pulmonary disease, unspecified; I50.30 Unspecified diastolic (congestive) heart failure; I11.0 Hypertensive heart disease with heart failure; F39 Unspecified mood [affective] disorder; E11.628 Type 2 diabetes mellitus with other skin complications; E11.40 Type 2 diabetes mellitus with diabetic neuropathy, unspecified; J96.11 Chronic respiratory failure with hypoxia; Z79.4 Long term (current) use of insulin; L03.116 Cellulitis of left lower limb; I25.10 Atherosclerotic heart disease of native coronary artery without angina pectoris; F41.9 Anxiety disorder, unspecified; Z79.02 Long term (current) use of antithrombotics/antiplatelets; E87.6 Hypokalemia; Z79.82 Long term (current) use of aspirin; E78.00 Pure hypercholesterolemia, unspecified; K21.9 Gastro-esophageal reflux disease without esophagitis; R53.1 Weakness; R29.6 Repeated falls; Z79.899 Other long term (current) drug therapy; Z99.81 Dependence on supplemental oxygen; I25.2 Old myocardial infarction; F32.A Depression, unspecified; S39.012A Strain of muscle, fascia and tendon of lower back, initial encounter; Y93.9 Activity, unspecified; Y92.481 Parking lot as the place of occurrence of the external cause; W19.XXXA Unspecified fall, initial encounter; B95.61 Methicillin susceptible Staphylococcus aureus infection as the cause of diseases classified elsewhere
CPT/HCPCS: 36245; 36415; 72100; 75710; 76937; 80048; 82962; 85025; 87426; 96372; 97162; 97166; 97530; 97535; 97802; 99152; 99153; 99218; 99285; J7040; Q9967; A4216; C1714; C1760; C1769; C1887; G0378

== ENCOUNTER → 2022-07-24 | Outpatient (CLI) | payer MEDICARE, MEDICAID, SELFPAY ==
--- NOTE | 2022-07-24 13:09 | VDLE_ITS ---
Reason For Study: VENOUS INSUFFICIENCY RIGHT LEFT CFV is compressible, spontaneous, phasic, CFV is compressible, spontaneous, phasic, competent and demonstrates normal competent, and demonstrates normal augmentation. augmentation. FV is compressible, spontaneous, phasic, FV is compressible, spontaneous, phasic, competent and demonstrates normal competent and demonstrates normal augmentation. augmentation. POP V is compressible, spontaneous, phasic, POP V is compressible, spontaneous, phasic, competent and demonstrates normal competent and demonstrates normal augmentation. augmentation. T/P Trunk is compressible. T/P Trunk is compressible. PTV is compressible. PTV is compressible. RT PerV is compressible. LT PerV is compressible. SFJ is competent and measures 0.57 x 0.54 cm. SFJ is competent and measures 0.60 x 0.61 cm. GSV proximal thigh measures 0.44 x 0.55 cm. GSV proximal thigh measures 0.63 x 0.61 cm. GSV at knee measures 0.38 x 0.50 cm. GSV at knee measures 0.57 x 0.49 cm. GSV above knee is competent. SSV proximal calf is competent and measures GSV below knee is INCOMPETENT for greater 0.26 x 0.24 cm. than 0.5 seconds. GSV is competent throughout. SSV proximal calf is competent and measures 0.20 x 0.18 cm. Procedure This is a venous duplex using B-mode, color flow and spectral Doppler. Exam performed in department. The study was technically difficult. Due to body habitus. The exam was diagnostic. VL/Venous Duplex US - Alfa Extrem Interpretation Summary Deep veins of the lower extremities are bilaterally patent and compressible seg mentally. There is no evidence of deep vein thrombosis on either side. Valvular competence appears in tact within the proximal deep venous systems bilaterally. The great saphenous veins appear bila terally patent and compressible segmentally. Sapheno-femoral junctions are bilaterally competent . The right great saphenous vein appears competent above the knee. The right great saphenous vein appears incompetent below the knee. The left great saphenous vein appears segmentally competent. Sm all saphenous veins are patent and competent bilaterally. Ordering Physician: Marley De Luna Referring Physician: Julio Brown Performed By: Genna Ibarra, SHAWN, RVT
== END | disposition home or self-care (01) ==
LOC: CVS 13:07
PROVIDERS: PCP Internal Medicine; Referring Provider Podiatrist; Visit Provider Podiatrist
DX: I87.2 Venous insufficiency (chronic) (peripheral) (principal); L97.522 Non-pressure chronic ulcer of other part of left foot with fat layer exposed; R60.0 Localized edema
CPT/HCPCS: 93970

== ENCOUNTER 2022-07-29 15:00 | Outpatient (RCR) | payer MEDICARE, MEDICAID, SELFPAY ==
[2022-06-29 00:36] VITALS: BP 139/63; PULSE 76; RESP 24; TEMP 37.1; BMI 41.1
[2022-07-22 13:23] VITALS: BP 147/88; PULSE 90; RESP 18; TEMP 37.1; BMI 41.1
--- NOTE | 2022-07-22 13:56 | PN.PCM_ITS ---
History of Present Illness Date of Service: 07/22/22 Chief Complaint: left foot ulcer History of Wound: This 62-year-old male with significant past medical history of diabetes with neuropathy peripheral vascular disease, debility, prior PEG tube (not current), arrhythmia, restrictive airway disease, history of heart failure and cardiac stent placement, hypertension, GERD, sleep apnea and mood disorder is following up today from the hospital for a left foot ulcer. He relates the onset of the ulcer was 05-13-2022 after a blister occurred. He was treated for cellulitis with IV and then oral antibiotics during recent [facility] admission. He was referred to see vascular specialist after having abnormal arterial findings in which he did not proceed forward with yet. He reports he is taking protein shake supplements but not Aubrey. He has trouble with debility and difficulty walking in the outpatient setting and was recently in a long term facility the past month undergoing rehab. That is why he has not had epi fix applied in a week. He is amenable to proceed today for wound is healthy enough. He reports he had Betadine gauze applied to the wound while at the long term facility. He denies odor or redness. Progress of Wound: stable Objective Data Objective Data Vital Signs: Vital Signs Temp Pulse Resp BP O2 Del Method O2 Flow Rate 98.8 F 90 18 147/88 H Nasal Cannula 4 07/22/22 13:23 07/22/22 13:23 07/22/22 13:23 07/22/22 13:23 07/22/22 13:23 07/22/22 13:23 Oxygen Flow Rate (L/min) 4 Oxygen Delivery Method Nasal Cannula Weight: 130.181 kg Body Mass Index (BMI) 41.1 Physical Exam Const no apparent distress General Appearance: cooperative Extremity Extremity Narrative: No calf tenderness left Left no bogginess or fluctuance on palpation or palpable abscess or mass No pain response with palpation to ulcer of the plantar lateral heel, left Compartments remain soft to palpate to the left lower extremity General Extremity: edema and no tenderness to palpation of joints or extremities; Negative for cyanosis Skin Skin Narrative: Ulcer plantar left heel with improvement with granular base and no central necrotic fibrous plug after superficial loose eschar was debrided away. there was no deep tissue exposure. No purulence, erythema streaking or odor. Mild serosanguineous drainage noted. His skin is hairless and atrophic. There is no maceration or deep tissue exposure or necrosis Neuro Neuro Narrative: lack of normal epicritic sensation via light touch is consistent with neuropathy status Debridement Note Debridement Note Wound debrided: plantar heel Laterality: Left Wound Grade/Stage: 1 Type of Debridement: Excisional debridement Anesthesia Used: 4% Lidocaine Solution Depth: in the subcutaneous layer Percentage of wound debrided: 100 Instrument Used: #15 blade and Forceps Tissue Removed: fibrous, devitalized subcutaneous, biofilm, slough Severity: Fat Layer Exposed Amount of bleeding with debridement: Mild Bleeding Controlled with: Pressure Patient tolerated procedure: Patient tolerated procedure well Debridement Free Text: Post-Debridement Measurements and Additional Note: Post-Debridement Measurements/Treatment - Nurse 1 - General Ulcer Assessment Start: 07/22/22 13:19 Freq: Status: Active Protocol: SARAH Activity Type Activity Date Activity User E-sign Co-sign Detail Recorded Client Recorded Date Recorded By Document 07/22/22 13:23 [facility] [id number] 07/22/22 13:27 [facility] 07/22/22 13:23 - Today's Visit Information Type of service Follow-up Visit (Physician/DEVICE REPAIR TECHNICIAN ) Arrival Mode Wheelchair Transfer Assistance Other Transfer Assist (Other) 3 Accompanied by Patient Identification Verified (Name & Yes ) Patient Requires Transmission-Based No Precautions Height and Weight Body Mass Index (BMI) 41.1 BMI Classification Obese Vital Signs Temperature (97.8 F-99.1 F) 98.8 F Temperature Source Temporal Pulse Rate (60-100) 90 Pulse Location Monitor Respiratory Rate (12-18) 18 Respiratory rate source Observation Oxygen Delivery Method Nasal Cannula O2 L/MIN (L/min) 4 Blood Pressure (90/60-120/80) 147/88 H Blood Pressure Mean (mm Hg) 107 Source Monitor Position Sitting Blood Pressure Location Right Arm History Since Last Visit- (Skip if this is Patient's initial visit) Have you changed medications since your No last visit? Any new allergies or adverse reactions No Had a fall/change in ADL's that may No increase risk of falls Signs or symptoms of abuse and/or No neglect since last visit Have you been in the hospital since your Yes last visit? Has compression in place as prescribed Yes Has offloadiing in place as prescribed Yes Experienced any changes in pain level or No management Left Footwear Removable Cast Walker/Walking Boot Right Footwear Diabetic Shoe Pain Scale: 0-10 Numeric Is Patient Pain Free? Yes WC - Nurse 1 - General Ulcer Measurement Start: 07/22/22 13:19 Freq: Status: Active Protocol: Activity Type Activity Date Activity User E-sign Co-sign Detail Recorded Client Recorded Date Recorded By Document 07/22/22 13:23 [facility] [id number] 07/22/22 13:27 [facility] 07/22/22 13:23 Wound Center Nurse 1 #1- L HEEL -Combined with other wound No -Current Size (cm) - Length 2 -Current Size (cm) - Width 2.4 -Current Size (cm) - Depth 0.2 -Total Square Cm 4.8 -Date of Last Picture (Recall this 07/22/22 field) -Photo Taken Yes -Epithelialization None Present -Tunneling No -Undermining/Tunneling No -Circular Undermining No -Exudate Amt Medium -Exudate Type Serosanguineous -Wound Margin Distinct, Outline Attached -Granulation Amt Small (1-33%) -Granulation Quality Red -Slough/Fibrin Yes -Necrosis Amt Large (67-100%) -Necrotic Tissue Type Eschar -Texture (Sammi-wound Skin Appearance) Assessed,Callus ,Scarring -Moisture (Sammi-wound Skin Appearance) Assessed,Dry/ Scaly -Color (Sammi-wound Skin Appearance) Assessed -Temperature (Sammi-wound Skin No Abnormality Appearance) (Pt Warm) -Tenderness on Palpation (Sammi-wound No Skin Appearance) -Ulcer Cleansing Rinsed/ Irrigated with Saline -Foul Odor after Cleansing Yes, Due to Product Use -Anesthetic Used 5% Lidocaine Gel Lower Limb Edema Present Yes Left Calf (cm) 43.5 Left Ankle (cm) 28.5 Assessment/Plan Assessment/Plan (1) Type 2 diabetes mellitus with foot ulcer: CODE(S): E11.621 - Type 2 diabetes mellitus with foot ulcer; L97.509 - Non-pressure chronic ulcer of other part of unspecified foot with unspecified severity (2) Difficulty in walking: CODE(S): R26.2 - Difficulty in walking, not elsewhere classified (3) Non-pressure chronic ulcer of other part of left foot with fat layer exposed: CODE(S): L97.522 - Non-pressure chronic ulcer of other part of left foot with fat layer exposed (4) Cellulitis of left lower limb: CODE(S): L03.116 - Cellulitis of left lower limb PLAN: resolved (5) Other specified peripheral vascular diseases: CODE(S): I73.89 - Other specified peripheral vascular diseases (6) Venous insufficiency (chronic) (peripheral): CODE(S): I87.2 - Venous insufficiency (chronic) (peripheral) (7) Localized edema: CODE(S): R60.0 - Localized edema (8) Type 2 diabetes mellitus with diabetic polyneuropathy: CODE(S): E11.42 - Type 2 diabetes mellitus with diabetic polyneuropathy (9) Chronic malnutrition: CODE(S): E46 - Unspecified protein-calorie malnutrition PLAN: Plan I reviewed and discussed his case today. Debridement was performed today as noted in the clinical panel to all of the ulcer sites. The following work up and care recommendations were made: Dressing: To keep secondary dressing clean, dry, and intact until follow-up next week. Tissue growth optimization: I recommend application of advanced wound healing product, epifix. Verbal consent was obtained and this was applied according standard protocol. This was secured with a wound veil and Steri-Strips. A secondary dressing was applied. He tolerated this well. 100% of the product was utilized. He was advised to keep this clean, dry, and intact until follow- up next week. A break of approximately 1 month was performed due to his recent admission to long term facility. Offload: To continue offloading cam walker boot with dual density Plastizote liners with a pocket to take pressure off the heel ulcer was ordered today. His recent physical therapy and long term facility placement is noted. Vascular: Abnormal blood flow studies noted. To follow up with vascular referral to Dr. Julian. Prior intervention noted. He continues on plavix. He is non compressible vessels and EKTA was not calculated. His toe brachial index on the left side is 0.22 and I do not recommend total contact cast application until adequate perfusion is confirmed. Edema: Ok to use single layer tubigrip. Venous doppler with reflux was ordered to assess for insufficiency. He was encouraged to get this scheduled. Infection: Cellulitis has resolved. Prior culture w/ staph haemolyticus and coag neg staph and negative for MRSA. He completed course of antibiotics. diagnostics were reviewed previously. X-ray without soft tissue emphysema, fracture, foreign body or charcot. Pain: controlled due to neuropathic status. Host factors: He has diabetes and A1c was 8.2%. To improve to optimize healing. I recommend f/u with pcp, Dr. Brown. He was recently seen and lift chair, functional capacity evaluation and physical therapy was ordered. To take nutrional supplements such as Aubrey for healing optimization. I answered all the patient's questions. To return to the wound healing center in 1 week or call sooner if the patient has any questions or concerns. Note: [employer] speech recognition web design intern software was used to create portions of this document. Sound-alike and misspelled words, as well as other web design intern errors may be contained in the documentation.
[2022-07-29 15:00] VITALS: BP 134/79; PULSE 77; RESP 22; TEMP 36.7; BMI 41.1
--- NOTE | 2022-07-29 15:36 | PCM.WC.PN ---
History of Present Illness Date of Service: 07/29/22 Chief Complaint: left foot ulcer History of Wound: This 62-year-old male with significant past medical history of diabetes with neuropathy peripheral vascular disease, debility, prior PEG tube (not current), arrhythmia, restrictive airway disease, history of heart failure and cardiac stent placement, hypertension, GERD, sleep apnea and mood disorder is following up today from the hospital for a left foot ulcer. He relates the onset of the ulcer was 05-13-2022 after a blister occurred. He was treated for cellulitis with IV and then oral antibiotics during recent [facility] admission. He was referred to see vascular specialist after having abnormal arterial findings in which he did not proceed forward with yet. He reports he is taking protein shake supplements but not Aubrey. He has trouble with debility and difficulty walking in the outpatient setting and was recently in a long term facility the past month undergoing rehab. He is amenable to proceed today for wound is healthy enough (epifix). He denies odor or redness. He would like to review his venous doppler results. He rescheduled his vascular surgery follow up for 08-19-22. Progress of Wound: improving quality Objective Data Objective Data Vital Signs: Vital Signs Temp Pulse Resp BP O2 Del Method O2 Flow Rate 98.1 F 77 22 H 134/79 H Nasal Cannula 4 07/29/22 15:00 07/29/22 15:00 07/29/22 15:00 07/29/22 15:00 07/22/22 13:23 07/22/22 13:23 Oxygen Flow Rate (L/min) 4 Oxygen Delivery Method Nasal Cannula Weight: 130.181 kg Body Mass Index (BMI) 41.1 Physical Exam Const no apparent distress General Appearance: cooperative Extremity Extremity Narrative: No calf tenderness left Left no bogginess or fluctuance on palpation or palpable abscess or mass No pain response with palpation to ulcer of the plantar lateral heel, left Compartments remain soft to palpate to the left lower extremity General Extremity: edema and no tenderness to palpation of joints or extremities; Negative for cyanosis Skin Skin Narrative: Ulcer plantar left heel with improvement with granular base and no central necrotic fibrous plug at this time; improved quality. there was no deep tissue exposure. No purulence, erythema streaking or odor. Mild serosanguineous drainage noted. His skin is hairless and atrophic. There is no maceration or deep tissue exposure or necrosis Neuro Neuro Narrative: lack of normal epicritic sensation via light touch is consistent with neuropathy status Debridement Note Debridement Note Wound debrided: plantar heel Laterality: Left Wound Grade/Stage: 1 Type of Debridement: Excisional debridement Anesthesia Used: 4% Lidocaine Solution Depth: in the subcutaneous layer Percentage of wound debrided: 100 Instrument Used: #15 blade Tissue Removed: fibrous, devitalized subcutaneous, biofilm, slough Severity: Fat Layer Exposed Amount of bleeding with debridement: Mild Bleeding Controlled with: Pressure Patient tolerated procedure: Patient tolerated procedure well Debridement Free Text: Post-Debridement Measurements and Additional Note: Post-Debridement Measurements/Treatment - Nurse 1 - General Ulcer Assessment Start: 07/22/22 13:19 Freq: Status: Active Protocol: SARAH Activity Type Activity Date Activity User E-sign Co-sign Detail Recorded Client Recorded Date Recorded By Document 07/22/22 13:23 [facility] [id number] 07/22/22 13:27 [facility] Document 07/29/22 15:00 DL [id number] 07/29/22 15:07 DL 07/22/22 07/29/22 13:23 15:00 - Today's Visit Information Type of service Follow-up Visit Follow-up Visit (Physician/WORKPLACE RELATIONS ADVISER (Physician/WORKPLACE RELATIONS ADVISER ) ) Arrival Mode Wheelchair Wheelchair Transfer Assistance Other Manual Transfer Assist (Other) 3 x2 Accompanied by Patient Identification Verified (Name & Yes Yes ) Patient Requires Transmission-Based No No Precautions Finger Stick Blood Sugar(mg/dl) (if 147 indicated): Blood Sugar Stated by Patient Height and Weight Body Mass Index (BMI) 41.1 41.1 BMI Classification Obese Obese Vital Signs Temperature (97.8 F-99.1 F) 98.8 F 98.1 F Temperature Source Temporal Temporal Pulse Rate (60-100) 90 77 Pulse Location Monitor Monitor Respiratory Rate (12-18) 18 22 H Respiratory rate source Observation Observation Oxygen Delivery Method Nasal Cannula O2 L/MIN (L/min) 4 Blood Pressure (90/60-120/80) 147/88 H 134/79 H Blood Pressure Mean (mm Hg) 107 97 Source Monitor Monitor Position Sitting Blood Pressure Location Right Arm History Since Last Visit- (Skip if this is Patient's initial visit) Have you changed medications since your No No last visit? Any new allergies or adverse reactions No No Had a fall/change in ADL's that may No No increase risk of falls Signs or symptoms of abuse and/or No No neglect since last visit Have you been in the hospital since your Yes No last visit? Has dressing in place as prescribed Yes Has compression in place as prescribed Yes Yes Has offloadiing in place as prescribed Yes Yes Experienced any changes in pain level or No No management Left Footwear Removable Cast Surgical Shoe Walker/Walking with pressure Boot relief insole Right Footwear Diabetic Shoe Pain Scale: 0-10 Numeric Is Patient Pain Free? Yes Yes WC - Nurse 1 - General Ulcer Measurement Start: 07/22/22 13:19 Freq: Status: Active Protocol: Activity Type Activity Date Activity User E-sign Co-sign Detail Recorded Client Recorded Date Recorded By Document 07/22/22 13:23 [facility] [id number] 07/22/22 13:27 BM Document 07/29/22 15:00 DL [id number] 07/29/22 15:07 DL 07/22/22 07/29/22 13:23 15:00 Wound Center Nurse 1 #1- L HEEL -Combined with other wound No -Current Size (cm) - Length 2 1.8 -Current Size (cm) - Width 2.4 2 -Current Size (cm) - Depth 0.2 0.2 -Total Square Cm 4.8 3.6 -Date of Last Picture (Recall this 07/22/22 field) -Photo Taken Yes No -Epithelialization None Present -Tunneling No -Undermining/Tunneling No -Circular Undermining No -Exudate Amt Medium Medium -Exudate Type Serosanguineous Serosanguineous -Wound Margin Distinct, Distinct, Outline Outline Attached Attached -Granulation Amt Small (1-33%) None Present (0 %) -Granulation Quality Red Everman -Slough/Fibrin Yes -Necrosis Amt Large (67-100%) Large (67-100%) -Necrotic Tissue Type Eschar Adherent Slough -Texture (Sammi-wound Skin Appearance) Assessed,Callus Scarring ,Scarring -Moisture (Sammi-wound Skin Appearance) Assessed,Dry/ Dry/Scaly Scaly -Color (Sammi-wound Skin Appearance) Assessed No Abnormality -Temperature (Sammi-wound Skin No Abnormality No Abnormality Appearance) (Pt Warm) (Pt Warm) -Tenderness on Palpation (Sammi-wound No No Skin Appearance) -Ulcer Cleansing Rinsed/ Soap and Water Irrigated with Saline -Foul Odor after Cleansing Yes, Due to No Product Use -Anesthetic Used 5% Lidocaine 5% Lidocaine Gel Gel Lower Limb Edema Present Yes Left Calf (cm) 43.5 41.5 Left Ankle (cm) 28.5 26.4 WC - Nurse 2 - General Ulcer CM Notes Start: 07/22/22 13:19 Freq: Status: Active Protocol: Activity Type Activity Date Activity User E-sign Co-sign Detail Recorded Client Recorded Date Recorded By Document 07/22/22 13:51 [id number] 07/22/22 14:00 Document 07/29/22 15:20 [id number] 07/29/22 15:26 07/22/22 07/29/22 13:51 15:20 Wound Center Nurse 2 #1- L HEEL -Time 13:57 15:22 -Correct Patient Yes Yes -Correct Side, Site, Position Yes Yes -Correct Procedure Yes Yes -Procedure Performed Yes Yes -Type of Procedure Debridement Debridement -Clinical Debridement Subcutaneous Subcutaneous -Tissue Removed Subcutaneous Subcutaneous -Post Debridement (cm) - Length 2.0 1.9 -Post Debridement (cm) - Width 2.5 2.1 -Post Debridement (cm) - Depth 0.2 0.2 -Total Square (Post) (cm) 5.00 3.99 -Area of Debridement (cm) - Length 2.0 1.9 -Area of Debridement (cm) - Width 2.5 2.1 -Total Square (Area) (cm) 5.00 3.99 -Tunneling No No -Undermining/Tunneling No No -Circular Undermining No No -Wound/Ulcer Outcome Not Healed Not Healed -Ulcer Cleansing Rinsed/ Rinsed/ Irrigated with Irrigated with Saline Saline -Foul Odor after Cleansing No No -Bioengineered Tissue Yes Yes -Type of Bioengineered Tissue Epifix Epifix -Expiration Date 04/29/27 04/29/27 -Product Lot Number [id number] -Percent Used 100 100 -Lot number of Saline Used [id number] -Bleeding Controlled with Pressure Pressure -Treatment Response Procedure Procedure Tolerated Well Tolerated Well -Offloading Yes Yes -Type of Offloading Camwalker Camwalker -Assistive Device(s) Wheelchair -Debridement - Subq, 1st 20sq cm No No -Apply Skin Sub - 1st 25 sq cm - Feet 1 1 -Epifix (per sq cm) 4 4 Pain Scale: 0-10 Numeric Is Patient Pain Free? Yes Yes WC - Nurse 3 - General Ulcer D/C NN Start: 07/22/22 13:19 Freq: Status: Active Protocol: Activity Type Activity Date Activity User E-sign Co-sign Detail Recorded Client Recorded Date Recorded By Document 07/29/22 15:31 RB [id number] 07/29/22 15:32 RB 07/29/22 15:31 Wound Care Nurse 3 #1- L HEEL -Other Dressing abd pad -Primary Dressing Covered/Secured with Dry Gauze,Dry Gauze & Roll Gauze,Secured with Tape Left -Tubular Bandage Single Layer -Size of Tubigrip Used Size E -Size E ($) 1 Treatment Response Procedure Tolerated Well Pain Scale: 0-10 Numeric Is Patient Pain Free? Yes WC - Visit Discharge Discharge Condition Stable Ambulatory Status Wheelchair Transportation Private Auto Medication Reconcilliation completed & No provided to patient/care provider Clinical Summary of Care Provided Yes Assessment/Plan Assessment/Plan (1) Type 2 diabetes mellitus with foot ulcer: CODE(S): E11.621 - Type 2 diabetes mellitus with foot ulcer; L97.509 - Non-pressure chronic ulcer of other part of unspecified foot with unspecified severity (2) Difficulty in walking: CODE(S): R26.2 - Difficulty in walking, not elsewhere classified (3) Non-pressure chronic ulcer of other part of left foot with fat layer exposed: CODE(S): L97.522 - Non-pressure chronic ulcer of other part of left foot with fat layer exposed (4) Cellulitis of left lower limb: CODE(S): L03.116 - Cellulitis of left lower limb PLAN: resolved (5) Other specified peripheral vascular diseases: CODE(S): I73.89 - Other specified peripheral vascular diseases (6) Venous insufficiency (chronic) (peripheral): CODE(S): I87.2 - Venous insufficiency (chronic) (peripheral) (7) Localized edema: CODE(S): R60.0 - Localized edema (8) Type 2 diabetes mellitus with diabetic polyneuropathy: CODE(S): E11.42 - Type 2 diabetes mellitus with diabetic polyneuropathy (9) Chronic malnutrition: CODE(S): E46 - Unspecified protein-calorie malnutrition PLAN: Plan I reviewed and discussed his case today. Debridement was performed today as noted in the clinical panel to all of the ulcer sites. The following work up and care recommendations were made: Dressing: To keep secondary dressing clean, dry, and intact until follow-up next week. Tissue growth optimization: I recommend application of advanced wound healing product, epifix. Verbal consent was obtained and this was applied according standard protocol. This was secured with a wound veil and Steri-Strips. A secondary dressing was applied. He tolerated this well. 100% of the product was utilized. He was advised to keep this clean, dry, and intact until follow-up next week. A prior break of approximately 1 month was performed due to his recent admission to long term facility. Offload: To continue offloading cam walker boot with dual density Plastizote liners with a pocket to take pressure off the heel ulcer was ordered today. His recent physical therapy and long term facility placement is noted. Vascular: Abnormal blood flow studies noted. To follow up with vascular referral to Dr. Julian. Prior intervention noted. He continues on plavix. He is noncompressible vessels and EKTA was not calculated. His toe brachial index on the left side is 0.22 and I do not recommend total contact cast application until adequate perfusion is confirmed. He rescheduled for 08-19-22; this is a referral for venous and arterial evaluation. Edema: Ok to use single layer tubigrip. Venous doppler with reflux was ordered to assess for insufficiency. He had some insufficiency noted. This was reviewed and discussed today. Infection: Cellulitis has resolved. Prior culture w/ staph haemolyticus and coag neg staph and negative for MRSA. He completed course of antibiotics. diagnostics were reviewed previously. X-ray without soft tissue emphysema, fracture, foreign body or charcot. Pain: controlled due to neuropathic status. Host factors: He has diabetes and A1c was 8.2%. To improve to optimize healing. I recommend f/u with pcp, Dr. Brown. He was recently seen and lift chair, functional capacity evaluation and physical therapy was ordered. To take nutrional supplements such as Aburey for healing optimization. I answered all the patient's questions. To return to the wound healing center in 1 week or call sooner if the patient has any questions or concerns. Note: [employer] speech recognition rug scratcher software was used to create portions of this document. Sound-alike and misspelled words, as well as other rug scratcher errors may be contained in the documentation. 12 minutes was spent on this encounter. This included face to face and non face to face care including preparing for the visit, reviewing the history, performing the exam, counseling and providing education to the patient, family, or caregiver, ordering medications/test/ procedures if indicated as documented, communicating with other healthcare providers, documenting information in the medical record, interpreting / sharing this information when indicated as documented, and care coordination.
== END 2022-07-29 23:59 | disposition home or self-care (01) ==
LOC: WC 15:00
PROVIDERS: PCP Internal Medicine; Visit Provider Podiatrist
DX: E11.621 Type 2 diabetes mellitus with foot ulcer (principal); E11.51 Type 2 diabetes mellitus with diabetic peripheral angiopathy without gangrene; L97.422 Non-pressure chronic ulcer of left heel and midfoot with fat layer exposed; I11.0 Hypertensive heart disease with heart failure; E11.40 Type 2 diabetes mellitus with diabetic neuropathy, unspecified; Z79.4 Long term (current) use of insulin; L03.116 Cellulitis of left lower limb; R60.0 Localized edema; S90.822S Blister (nonthermal), left foot, sequela; X58.XXXS Exposure to other specified factors, sequela; R26.2 Difficulty in walking, not elsewhere classified; G47.30 Sleep apnea, unspecified; K21.9 Gastro-esophageal reflux disease without esophagitis; Z79.82 Long term (current) use of aspirin; Z79.02 Long term (current) use of antithrombotics/antiplatelets; Z79.899 Other long term (current) drug therapy; Z95.5 Presence of coronary angioplasty implant and graft
CPT/HCPCS: 15275; Q4186

== ENCOUNTER 2022-08-01 14:56 | Emergency (ER) | payer MEDICARE, MEDICAID, SELFPAY ==
[2022-08-01 14:57] VITALS: BP 181/93; PULSE 75; RESP 18; TEMP 36.9; O2SAT 100; BMI 41.7
[2022-08-01 15:01] VITALS: PULSE 73; RESP 18; O2SAT 97
--- NOTE | 2022-08-01 15:18 | EKG12_ITS ---
Test Reason : WEAKNESS Blood Pressure : / mmHG Vent. Rate : 065 BPM Atrial Rate : 069 BPM P-R Int : 246 ms QRS Dur : 094 ms QT Int : 444 ms P-R-T Axes : 079 002 041 degrees QTc Int : 461 ms Sinus rhythm with 2nd degree A-V block (Mobitz II) with Premature supraventricular complexes and with occasional Premature ventricular complexes Abnormal ECG Confirmed by NOAH JOHNS, DANNIE ([id number]), manuscript editor SHARAN DOE ([id number]) on 08/04/2022 9:10:19 AM Referred By: Confirmed By:CAMILA ZAMORA MD
--- NOTE | 2022-08-01 15:20 | EDS_ITS ---
HPI History of Present Illness Chief Complaint: Fall Informant: patient and spouse/S.O. Onset/Context/Timing Onset: Today Narrative Narrative: Patient presents after his legs gave out at home when he fell. He states he was walking and his son was behind him. He told his son that he was very weak, his son grabbed him under the arms and gently lowered him to the ground. Although triage note documents patient has had frequent falls recently patient denies this stating that this the first time he had fallen. Significant other arrives during my exam and states that he has been very weak and feels that he needs to go to rehab. Patient denies any complaints at this time. He is on home oxygen at 4 L at baseline. He does report a mild cough recently with clear to white- colored sputum. No fever or chills. He states he has been eating well with normal urination. [facility] Medical History Ambulates with cane Amputation of one or more toes Anxiety and depression Arrhythmia Arthritis Aspiration into airway Aspiration pneumonia Atherosclerotic heart disease of [place] coronary artery without angina pectoris Bilateral leg weakness Blind left eye Blister (nonthermal), left foot, initial encounter Bronchiectasis with (acute) exacerbation Cardiology follow-up encounter Chronic cough Chronic respiratory failure with hypoxia COPD (chronic obstructive pulmonary disease) CPAP (continuous positive airway pressure) dependence Debility, unspecified Depression Diabetes Essential hypertension Gastric reflux GERD (gastroesophageal reflux disease) High cholesterol History of aspiration pneumonia History of echocardiogram History of edema History of gout History of heart attack History of non-ST elevation myocardial infarction (NSTEMI) (08/2016) History of pain when walking History of steroid therapy History of stress test Hyperglycemia due to type 2 diabetes mellitus Hypertension Insulin dependent diabetes mellitus Kidney stones Leg pain, right Leukocytosis Low back pain Memory impairment Migraines Mood disorder Non-smoker Noncompliance by declining intervention or support On home oxygen therapy Peripheral vascular occlusive disease Pneumonia Prostate disease Pulmonary nodule, left Recurrent falls Right ankle pain Shortness of breath on exertion Silent aspiration Sleep apnea Tremor Type 2 diabetes mellitus Type 2 diabetes mellitus with diabetic polyneuropathy Ulcer of left foot, limited to breakdown of skin Vision loss of left eye Wears glasses Wound of left lower extremity Home Medications acetaminophen 500 mg tablet 1,000 mg PO QHS PRN PRN Pain 1-10 Or Fever 02/11/21 [History Last Taken 05/14/22 18:50 1000] aspirin 81 mg tablet,delayed release (Adult Aspirin Regimen) 81 mg PO DAILY heart health 11/05/21 [History Last Taken 07/01/22] spironolactone 25 mg tablet 25 mg PO QHS diuretic 11/08/21 [History Last Taken 07/01/22] peg [id number] 1 %-0.2 %-0.2 % eye drops (Artificial Tears ([id number])) 2 drp EACH EYE Q1H PRN DRY EYES #0 mL 11/14/21 [Rx Last Taken Unknown] nitroglycerin 0.4 mg sublingual tablet 0.4 mg sublingual Q5M PRN Chest Pain #30 tabs 11/25/21 [Rx Last Taken Unknown] atorvastatin 80 mg tablet 80 mg PO QHS cholesterol #90 tabs 01/09/22 [Rx Last Taken 06/30/22] finasteride 5 mg tablet 5 mg PO DAILY prostate #90 tabs 01/09/22 [Rx Last Taken 07/01/22] furosemide 40 mg tablet 40 mg PO DAILY fluid #90 tabs 01/09/22 [Rx Last Taken 07/01/22] albuterol sulfate 90 mcg/actuation aerosol inhaler 2 puff inhalation Q4H PRN shortness of breath or wheezing #8.5 grams 02/04/22 [Rx Last Taken Unknown] pantoprazole 20 mg tablet,delayed release 20 mg PO DAILY gerd 02/04/22 [History Last Taken 07/01/22] carvedilol 12.5 mg tablet 12.5 mg PO BID heart #180 tabs 02/05/22 [Rx Last Taken 07/01/22] losartan 50 mg tablet 50 mg PO DAILY bp 03/21/22 [History Last Taken 07/01/22] clopidogrel 75 mg tablet 75 mg PO DAILY blood thinner #90 tabs 03/30/22 [Rx Last Taken 07/01/22] isosorbide mononitrate 30 mg tablet,extended release 24 hr 30 mg PO DAILY heart #90 tabs 03/30/22 [Rx Last Taken 07/01/22] amlodipine 5 mg tablet 5 mg PO DAILY bp 05/21/22 [History Last Taken 07/01/22] loratadine 10 mg tablet (Allergy Relief (loratadine)) 10 mg PO DAILY allergies 05/21/22 [History Last Taken 07/01/22] insulin detemir U-100 100 unit/mL (3 mL) subcutaneous pen 44 unit (0.44 mL) subcut QHS dm #15 mL 05/26/22 [Rx Last Taken 06/30/22] buspirone 7.5 mg tablet 15 mg PO TID mood #90 tabs 07/03/22 [Rx Last Taken 07/01/22] clonazepam 1 mg tablet 1 mg PO BID PRN PRN anxiety #14 tabs 07/03/22 [Rx Last Taken Unknown] fluoxetine 20 mg capsule 60 mg PO DAILY #0 caps 07/03/22 [Rx Last Taken Unknown] gauze bandage 4 X 4 (Bordered Gauze) #14 ea 07/03/22 [Rx Last Taken Unknown] nystatin 100,000 unit/gram topical powder (Nyamyc) 1 applic topical BID #0 grams 07/03/22 [Rx Last Taken Unknown] pregabalin 75 mg capsule (Lyrica) 75 mg PO BID #14 caps 07/10/22 [Rx Last Taken Unknown] walker (Ultra-Light Rollator misc) #1 ea 07/21/22 [Rx Last Taken Unknown] trazodone 100 mg tablet 100 mg PO QHS #30 tabs 07/27/22 [Rx Last Taken Unknown] insulin lispro 100 unit/mL subcutaneous pen (Humalog KwikPen (U-100) Insulin) 12 unit (0.12 mL) subcut ACHS #15 mL 07/29/22 [Rx Last Taken Unknown] metoclopramide HCl 5 mg tablet 5 mg PO TID #90 tabs 07/31/22 [Rx Last Taken Unknown] Allergy/AdvReac Type Severity Reaction Status Date / Time allopurinol AdvReac Vomiting Verified 07/29/22 12:50 Influenza Virus Vaccines AdvReac Vomiting Verified 07/29/22 12:50 pneumococcal vaccine AdvReac Vomiting Verified 07/29/22 12:50 Family History Mother Diabetes Heart disease CHF Father Heart disease NC/CAD Myocardial infarction Surgical History H/O lithotripsy History of angioplasty of peripheral vessel (2017) History of angioplasty of peripheral vessel History of ankle surgery History of cardiac catheterization History of coronary artery stent placement (08/2016) History of coronary artery stent placement History of esophagogastroduodenoscopy (EGD) History of left heart catheterization (11/15/17) History of thyroid surgery Hx of lithotripsy Hx of surgery to heart and great vessels, presenting hazards to health Hx of surgical procedure Hx of thyroidectomy Hx of toe surgery Hx of toe surgery PEG (percutaneous endoscopic gastrostomy) status Social History household members: spouse housing: apartment Smoking Status: Never smoker alcohol intake: never substance use type: does not use ROS ROS ED Constitutional Constitutional ED: Denies chills or fever(s) Eyes Eyes: Denies change in vision or discharge from eye(s) ENT ENT ED: Denies discharge from eye(s), rhinorrhea or sore throat Cardiovascular Cardiovascular: Denies chest pain or palpitations Respiratory/Chest Respiratory/Chest: Reports cough and sputum; Denies dyspnea Gastrointestinal Gastrointestinal: Denies abdominal pain, diarrhea, nausea or vomiting Genitourinary Genitourinary ED: Denies difficulty urinating or dysuria Musculoskeletal Musculoskeletal: Denies back pain or extremity pain Integumentary Reports other Details: Chronic left lower extremity wound ; Denies Abrasions or rash Neurologic Neurologic: Reports weakness; Denies headache(s) Psychiatric Psychiatric: Denies anxiety or depression Allergic/Immunologic Allergic/Immunologic ED: Denies lip swelling or urticaria EXAM Physical Exam Const Vital Signs: 08/01/22 14:57 08/01/22 15:01 08/01/22 15:02 Temperature 98.5 F Temperature Source Oral Pulse Rate 75 73 Respiratory Rate 18 18 Respiratory Effort Normal Blood Pressure 181/93 H Blood Pressure Mean 122 Pulse Ox 100 97 Oxygen Delivery Method Nasal Cannula Nasal Cannula Nasal Cannula Oxygen Flow Rate (L/min) 4 4 4 08/01/22 15:50 08/01/22 17:04 Temperature Temperature Source Pulse Rate 67 63 Respiratory Rate 16 18 Respiratory Effort Blood Pressure 110/70 158/78 H Blood Pressure Mean 83 104 Pulse Ox 100 100 Oxygen Delivery Method Nasal Cannula Nasal Cannula Oxygen Flow Rate (L/min) 4 4 Positive obese Nutritional Appearance: obese HEENT Reports moist mucous membranes Eyes EOMs intact bilaterally Neck no lymphadenopathy Chest Wall inspection of chest normal and palpation of chest normal Resp normal respiratory effort and clear to auscultation bilaterally Cardio regular rate and regular rhythm GI non-tender Auscultation: hypoactive bowel sounds Palpation: soft Extremity Extremity Narrative: Walking boot in place on left lower extremity. When boot and dressing are removed he has a small nickel sized wound to the plantar surface of the calcaneus. Clean wound borders are noted. No sign of acute infection. Neuro oriented x3 Neuro Narrative: No focal neurologic deficits. Psych mental status grossly normal MDM MDM MDM Narrative Medical decision making narrative: Patient placed on braid pattern setter. EKG and chest x-ray obtained along with COVID swab. Lab work and urinalysis ordered. Patient given IV fluids. Lab Data Attestation: I reviewed the patient's lab results. Labs: Laboratory Results - last 24 hr 08/01/22 08/01/22 08/01/22 15:25 15:25 15:45 WBC 7.5 RBC 3.96 L Hgb 11.2 L Hct 35.1 L MCV 88.6 MCH 28.3 MCHC 31.9 L RDW Std Deviation 44.1 H RDW Coeff of [place] 13.7 Plt Count 168 MPV 10.6 Immature Gran % (Auto) 0.400 Neut % (Auto) 70.2 H Lymph % (Auto) 17.3 L Mccreary % (Auto) 9.5 Eos % (Auto) 2.1 Baso % (Auto) 0.5 Absolute Neuts (auto) 5.3 Absolute Lymphs (auto) 1.30 Nucleated RBC % 0 Sodium 142 Potassium 4.1 Chloride 105 Carbon Dioxide 31.0 Anion Gap 6 BUN 22 H Creatinine 1.24 Estim Creat Clear Calc 62.96 Est GFR (MDRD) Af Amer 76 Est GFR (MDRD) Non-Af 63 BUN/Creatinine Ratio 17.7 Glucose 180 H Calcium 8.7 Total Bilirubin 0.30 Direct Bilirubin 0.15 AST 15 ALT 21 Alkaline Phosphatase 115 Troponin I High Sens 14 Total Protein 6.9 Albumin 2.9 L Globulin 4.0 Urine Color Yellow Urine Clarity Clear Urine pH 6.0 Ur Specific Hickman 1.020 Urine Protein 15 H Urine Glucose (UA) Normal Urine Ketones Negative Urine Occult Blood Negative Urine Nitrite Negative Urine Bilirubin Negative Urine Urobilinogen Normal Ur Leukocyte Esterase Negative Urine RBC 0 SEEN Urine WBC 0 SEEN Ur Squamous Epith Cells 0-5 SEEN Urine Bacteria 0 SEEN Hyaline Casts 0-5 SEEN Urine Mucus 0 SEEN Radiography Chest X-Ray - ED: 1 View, Read by ED Physician and Chronic Changes Diagnostic Testing: Clinical Impression(s) from Imaging Studies Chest X-Ray 08/01/22 16:08 IMPRESSION: No active disease. Electronically Signed: Deuce Floyd MD at 16:26 EDT , EKG Initial EKG: Attestation: I personally reviewed and interpreted this EKG as follows: Interpretation: Sinus Rhythm (Sinus at 64 with Mobitz II block.) Treatment and Re-Evaluation Narrative: On repeat evaluation patient resting comfortably. He declines admission for rehab placement states he just wants to go home. Lab work is unremarkable. Chest x-ray reveals poor inspiration but no acute disease. Radiology interpretation is also reviewed. Patient does have evidence of a Mobitz 2 block on his EKG. I sent images of the EKG to Dr. Nesbitt, on-call for cardiology. Patient has not had any significant pauses, felt dizzy, felt as if he was going to pass out. At this time patient was placed on a Holter monitor. Patient is to hold his carvedilol and to double his amlodipine dose to help control blood pressure without dropping his heart rate. Cardiology office will call him on Wednesday to be seen this week. Discharge Plan Triage Chief Complaint: Fall ED Provider: Michelle Arvizu Dx/Rx/DC Orders Clinical Impression: Generalized weakness, Fall, AV block, Mobitz II Instructions: ED Weakness (Uncertain Cause), ED Fall Prevention Prescriptions: No Action aspirin [Adult Aspirin Regimen] 81 mg tablet,delayed release (DR/EC) 81 mg PO DAILY atorvastatin 80 mg tablet 80 mg PO QHS Qty: 90 2RF furosemide 40 mg tablet 40 mg PO DAILY Qty: 90 3RF finasteride 5 mg tablet 5 mg PO DAILY Qty: 90 3RF pantoprazole 20 mg tablet,delayed release (DR/EC) 20 mg PO DAILY albuterol sulfate 90 mcg/actuation HFA aerosol inhaler 2 puff inhalation Q4H PRN (Reason: shortness of breath or wheezing) Qty: 8.5 3RF Rx Instructions: administer with spacer carvedilol 12.5 mg tablet 12.5 mg PO BID Qty: 180 3RF loratadine [Allergy Relief (loratadine)] 10 mg tablet 10 mg PO DAILY (DME) Ultra-Light Rollator Misc See Rx Instructions .Route Qty: 1 2RF Rx Instructions: As directed acetaminophen 500 MG tablet 1,000 mg PO QHS PRN PRN (Reason: Pain 1-10 Or Fever) spironolactone 25 mg tablet 25 mg PO QHS Artificial Tears([id number]) 1-0.2-0.2 % Drops 2 drp EACH EYE Q1H PRN (Reason: DRY EYES) Qty: 0 0RF losartan 50 mg tablet 50 mg PO DAILY amlodipine 5 mg tablet 5 mg PO DAILY clonazepam 1 mg Tablet 1 mg PO BID PRN PRN (Reason: anxiety) Qty: 14 0RF nystatin [Nyamyc] 100,000 unit/gram Powder 1 applic topical BID Qty: 0 0RF Protocol: *Topical Application Instructions APPLICATION INSTRUCTIONS: to groin fluoxetine 20 mg Capsule 60 mg PO DAILY Qty: 0 0RF buspirone 7.5 mg tablet 15 mg PO TID Qty: 90 2RF (DME) gauze bandage [Bordered Gauze] 4 X 4 bandage See Rx Instructions .ROUTE .MEDSUPPLY Qty: 14 2RF Rx Instructions: Daily cleanse left foot wound with soap and water, dry and apply Betadine solution and apply clean dressing pregabalin [Lyrica] 75 mg capsule 75 mg PO BID Qty: 14 0RF nitroglycerin 0.4 mg tablet, sublingual 0.4 mg SL Q5M PRN (Reason: Chest Pain) Qty: 30 0RF clopidogrel 75 mg tablet 75 mg PO DAILY Qty: 90 3RF isosorbide mononitrate 30 mg tablet extended release 24 hr 30 mg PO DAILY Qty: 90 3RF insulin detemir U-100 100 unit/mL (3 mL) insulin pen 44 unit subcut QHS Qty: 15 1RF trazodone 100 mg tablet 100 mg PO QHS Qty: 30 0RF insulin lispro [Humalog KwikPen Insulin] 100 unit/mL insulin pen 12 unit subcut ACHS Qty: 15 3RF metoclopramide HCl 5 mg tablet 5 mg PO TID Qty: 90 2RF Primary Care Provider: Doretha Brown Referrals: Mauricio West MD [Med Staff - Active Staff] - As soon as possible Doretha Brown MD [Primary Care Provider] - Activity Restrictions/Additional Instructions: You have been given a 48-hour heart monitor to wear. Please hold your carvedilol medication. Instead take 10 mg of amlodipine instead of 5 mg starting tomorrow. If you do not hear from the cardiology office on Wednesday to schedule follow-up please call them. You should be seen this week for follow- up. Return for any worsening symptoms or concerns. Disposition Disposition: Home, Self Care
[2022-08-01] MEDS: 0.9% Normal Saline 1,000 ML 150 ML IV (15:47)
[2022-08-01 15:48] LABS: Absolute Neutrophil Count 5.3 X10^3/uL (2.0-7.7); Basophil# 0.04 X10^3/uL; Basophil% 0.5 % (0-1); Eosinophil# 0.16 X10^3/uL; Eosinophils% 2.1 % (0-5); Hematocrit 35.1 % (40-54); Hemoglobin 11.2 g/dL (13.0-16.5); Lymphocyte % 17.3 % (19-41); Mean Corp Hgb Conc 31.9 g/dL (32-36); Mean Corpuscular Hgb 28.3 pg (27.0-32.0); Mean Corpuscular Volume 88.6 fL (80-94); Mean Platelet Vol. 10.6 fl (6.2-12.0); Monocyte# 0.71 X10^3/uL; Monocyte% 9.5 % (0-10); NRBC Flagged by Analyzer 0 % (0-5); Neutrophil # 5.27 X10^3/uL (2.7-7.7); Neutrophil % 70.2 % (47-70); Platelet Count 168 K/mm3 (150-450); RBC Distribution Width CV 13.7 % (11.6-14.6); RBC Distribution Width SD 44.1 fl (35.1-43.9); Red Blood Count 3.96 M/mm3 (4.6-6.2); White Blood Count 7.5 K/mm3 (4.4-11.0)
[2022-08-01 15:50] VITALS: BP 110/70; PULSE 67; RESP 16; O2SAT 100
[2022-08-01 15:57] LABS: Bacteria 0 SEEN /hpf (None Seen); Mucous, Urine 0 SEEN /hpf (<or=2+); Red Blood Cells-Urine 0 SEEN /hpf (0-5); White Blood Cells 0 SEEN /hpf (0-5)
[2022-08-01 16:00] LABS: Color, Urine Yellow (Yellow); Glucose, Dipstick Normal (Normal); Ketone-Dipstick Negative (Negative); Leukocyte Esterase-Dipstick Negative /ul (Negative); Nitrite-Dipstick Negative (Negative); Occult Blood-Urine Negative /ul (Negative); Protein-Dipstick 15 mg/dl (Negative); Urine Bilirubin Dipstick Negative (Negative); Urine Clarity Clear (Clear); Urine Urobilinogen Normal (Normal)
--- NOTE | 2022-08-01 16:08 | RAD_ITS ---
STUDY: X-RAY CHEST REASON FOR EXAM: Male, 62 years old. cough TECHNIQUE: Single AP portable view of the chest. COMPARISON: 07/01/2022 FINDINGS: The lungs are clear and expanded. Elevated right hemidiaphragm which is unchanged. Normal size heart. Normal mediastinum and pat. Normal visualized pulmonary arteries. Normal visualized aortic arch and descending thoracic aorta. Normal visualized thoracic spine. Normal visualized ribs, clavicles, and shoulders. There is no demonstrated abnormality of the visualized soft tissue structures of the upper abdomen. RAD/Chest 1 View (Portable) IMPRESSION: No active disease. Electronically Signed: Deuce Floyd MD at 16:26 EDT ,
[2022-08-01 16:09] LABS: AST(SGOT) 15 U/L (15-37); Alanine Aminotransfer ALT/SGPT 21 U/L (16-61); Albumin, Serum 2.9 g/dL (3.2-5.0); Alkaline Phosphatase 115 U/L (45-117); Anion Gap 6 (5-15); BUN 22 mg/dL (7-18); BUN/Creat Ratio 17.7 RATIO (10-20); Bilirubin, Direct 0.15 mg/dL (0.00-0.30); Calcium,Total 8.7 mg/dL (8.5-10.1); Chloride 105 mmol/L (98-107); Creatinine, Serum 1.24 mg/dL (0.70-1.30); EST Glomerular Filtration Rate 63 mL/min (>60); Est Glom Filt Rate - Afr Amer 76 mL/min (>60); Estimated Creatinine Clearance 62.96 ml/min; Glucose 180 mg/dL (74-106); Potassium 4.1 mmol/L (3.5-5.1); Protein, Total 6.9 g/dL (6.4-8.2); Sodium Level 142 mmol/L (136-145); Troponin-I HS 14 pg/mL (3.0-78.0)
[2022-08-01 16:09] LABS: Hyaline Cast 0-5 SEEN /lpf (0-5); Squamous Epithelial Cells - UA 0-5 SEEN /hpf (0-5)
[2022-08-01 17:04] VITALS: BP 158/78; PULSE 63; RESP 18; O2SAT 100
== END 2022-08-01 19:03 | disposition home or self-care (01) ==
PROVIDERS: Emergency Provider Emergency Medicine; PCP Internal Medicine; Visit Provider Emergency Medicine
DX: I44.1 Atrioventricular block, second degree (principal); E11.51 Type 2 diabetes mellitus with diabetic peripheral angiopathy without gangrene; J96.11 Chronic respiratory failure with hypoxia; Z68.41 Body mass index [BMI] 40.0-44.9, adult; Z79.4 Long term (current) use of insulin; R53.1 Weakness; W19.XXXA Unspecified fall, initial encounter; Y92.009 Unspecified place in unspecified non-institutional (private) residence as the place of occurrence of the external cause; Z99.81 Dependence on supplemental oxygen; F41.9 Anxiety disorder, unspecified; F32.A Depression, unspecified; I25.10 Atherosclerotic heart disease of native coronary artery without angina pectoris; Z87.01 Personal history of pneumonia (recurrent); K21.9 Gastro-esophageal reflux disease without esophagitis; E78.00 Pure hypercholesterolemia, unspecified; I25.2 Old myocardial infarction; Z87.442 Personal history of urinary calculi; M10.9 Gout, unspecified; I10 Essential (primary) hypertension; R29.6 Repeated falls; Z79.899 Other long term (current) drug therapy; Z79.82 Long term (current) use of aspirin; Z95.5 Presence of coronary angioplasty implant and graft; E66.9 Obesity, unspecified
CPT/HCPCS: 71045; 80048; 80076; 81001; 84484; 85025; 87811; 93005; 93225; 93226; 96360; 96361; 99285; A4216

== ENCOUNTER → 2022-08-01 | Outpatient (CLI) | payer MEDICARE, MEDICAID, SELFPAY | END | disposition home or self-care (01) | LOC: CVS 18:13 | PROVIDERS: PCP Internal Medicine; Referring Provider Specialist; Visit Provider Emergency Medicine | DX: I44.1 Atrioventricular block, second degree (principal) | CPT/HCPCS: 93225; 93226 ==

== ENCOUNTER 2022-08-05 14:59 | Emergency (ER) | payer MEDICARE, MEDICAID, SELFPAY ==
[2022-08-05 15:01] VITALS: BP 142/65; PULSE 74; RESP 18; TEMP 36.6; O2SAT 93; BMI 41.5
--- NOTE | 2022-08-05 16:27 | ED.RN ---
pt. statees he does not need to be seen. aware
== END 2022-08-05 16:25 | disposition left against medical advice (07) ==
LOC: ED 16:30
PROVIDERS: PCP Internal Medicine
DX: Z53.21 Procedure and treatment not carried out due to patient leaving prior to being seen by health care provider (principal)
CPT/HCPCS: 99281

== ENCOUNTER 2022-08-12 02:09 | Inpatient (IN) | payer MEDICARE, MEDICAID, SELFPAY ==
[2022-08-12] VITALS (19 sets, daily range): BP systolic 121–190; BP diastolic 54–94; PULSE 55–85; RESP 14–24; TEMP 36.7–37.9; O2SAT 93–100; BMI 41.7; BMI 40.4
--- NOTE | 2022-08-12 02:21 | EKG12_ITS ---
Test Reason : DYSRHYTHMIA Blood Pressure : / mmHG Vent. Rate : 081 BPM Atrial Rate : 082 BPM P-R Int : 000 ms QRS Dur : 102 ms QT Int : 402 ms P-R-T Axes : 000 012 045 degrees QTc Int : 466 ms Normal sinus rhythm Confirmed by MAURO SELF MD ([id number]), visual effects editor SHARAN DOE ([id number]) on 08/14/2022 9:40:04 AM Referred By: ZEUS Confirmed By:MAURO SELF MD
--- NOTE | 2022-08-12 02:30 | EDS_ITS ---
HPI History of Present Illness Chief Complaint: General Illness Detail of Chief Complaint: Shortness of breath, cough, fever Informant: patient Onset/Context/Timing Onset: Yesterday Context: Gradual Onset Current Severity: Mild Maximum Severity: Moderate Narrative Narrative: Patient presents via EMS after becoming ill around 9 PM last evening. He reports a fever at home with chills and shortness of breath. He does have cough. He has a history of aspiration pneumonia. He does not remember choking on anything in the last several days. He has not taken anything for fever. He did take his normal nighttime meds. The time of my examination he is on 4 L nasal cannula which he states is his baseline oxygen at home. [facility] Medical History Ambulates with cane Amputation of one or more toes Anxiety and depression Arrhythmia Arthritis Aspiration into airway Aspiration pneumonia Atherosclerotic heart disease of [place] coronary artery without angina pectoris Bilateral leg weakness Blind left eye Blister (nonthermal), left foot, initial encounter Bronchiectasis with (acute) exacerbation Cardiology follow-up encounter Chronic cough Chronic respiratory failure with hypoxia COPD (chronic obstructive pulmonary disease) CPAP (continuous positive airway pressure) dependence Debility, unspecified Depression Diabetes Essential hypertension Gastric reflux GERD (gastroesophageal reflux disease) High cholesterol History of aspiration pneumonia History of echocardiogram History of edema History of gout History of heart attack History of non-ST elevation myocardial infarction (NSTEMI) (08/2016) History of pain when walking History of steroid therapy History of stress test Hyperglycemia due to type 2 diabetes mellitus Hypertension Insulin dependent diabetes mellitus Kidney stones Leg pain, right Leukocytosis Low back pain Memory impairment Migraines Mood disorder Non-smoker Noncompliance by declining intervention or support On home oxygen therapy Peripheral vascular occlusive disease Pneumonia Prostate disease Pulmonary nodule, left Recurrent falls Right ankle pain Shortness of breath on exertion Silent aspiration Sleep apnea Tremor Type 2 diabetes mellitus Type 2 diabetes mellitus with diabetic polyneuropathy Ulcer of left foot, limited to breakdown of skin Vision loss of left eye Wears glasses Wound of left lower extremity Home Medications acetaminophen 500 mg tablet 1,000 mg PO QHS PRN PRN Pain 1-10 Or Fever 02/11/21 [History Last Taken 05/14/22 18:50 1000] aspirin 81 mg tablet,delayed release (Adult Aspirin Regimen) 81 mg PO DAILY heart health 11/05/21 [History Last Taken 07/01/22] spironolactone 25 mg tablet 25 mg PO QHS diuretic 11/08/21 [History Last Taken 07/01/22] peg [id number] 1 %-0.2 %-0.2 % eye drops (Artificial Tears ([id number])) 2 drp EACH EYE Q1H PRN DRY EYES #0 mL 11/14/21 [Rx Last Taken Unknown] nitroglycerin 0.4 mg sublingual tablet 0.4 mg sublingual Q5M PRN Chest Pain #30 tabs 11/25/21 [Rx Last Taken Unknown] atorvastatin 80 mg tablet 80 mg PO QHS cholesterol #90 tabs 01/09/22 [Rx Last Taken 06/30/22] finasteride 5 mg tablet 5 mg PO DAILY prostate #90 tabs 01/09/22 [Rx Last Taken 07/01/22] furosemide 40 mg tablet 40 mg PO DAILY fluid #90 tabs 01/09/22 [Rx Last Taken 07/01/22] albuterol sulfate 90 mcg/actuation aerosol inhaler 2 puff inhalation Q4H PRN shortness of breath or wheezing #8.5 grams 02/04/22 [Rx Last Taken Unknown] pantoprazole 20 mg tablet,delayed release 20 mg PO DAILY gerd 02/04/22 [History Last Taken 07/01/22] carvedilol 12.5 mg tablet 12.5 mg PO BID heart #180 tabs 02/05/22 [Rx Last Taken 07/01/22] losartan 50 mg tablet 50 mg PO DAILY bp 03/21/22 [History Last Taken 07/01/22] clopidogrel 75 mg tablet 75 mg PO DAILY blood thinner #90 tabs 03/30/22 [Rx Last Taken 07/01/22] isosorbide mononitrate 30 mg tablet,extended release 24 hr 30 mg PO DAILY heart #90 tabs 03/30/22 [Rx Last Taken 07/01/22] amlodipine 5 mg tablet 5 mg PO DAILY bp 05/21/22 [History Last Taken 07/01/22] loratadine 10 mg tablet (Allergy Relief (loratadine)) 10 mg PO DAILY allergies 05/21/22 [History Last Taken 07/01/22] insulin detemir U-100 100 unit/mL (3 mL) subcutaneous pen 44 unit (0.44 mL) subcut QHS dm #15 mL 05/26/22 [Rx Last Taken 06/30/22] buspirone 7.5 mg tablet 15 mg PO TID mood #90 tabs 07/03/22 [Rx Last Taken 07/01/22] clonazepam 1 mg tablet 1 mg PO BID PRN PRN anxiety #14 tabs 07/03/22 [Rx Last Taken Unknown] fluoxetine 20 mg capsule 60 mg PO DAILY #0 caps 07/03/22 [Rx Last Taken Unknown] gauze bandage 4 X 4 (Bordered Gauze) #14 ea 07/03/22 [Rx Last Taken Unknown] nystatin 100,000 unit/gram topical powder (Nyamyc) 1 applic topical BID #0 grams 07/03/22 [Rx Last Taken Unknown] pregabalin 75 mg capsule (Lyrica) 75 mg PO BID #14 caps 07/10/22 [Rx Last Taken Unknown] walker (Ultra-Light Rollator misc) #1 ea 07/21/22 [Rx Last Taken Unknown] insulin lispro 100 unit/mL subcutaneous pen (Humalog KwikPen (U-100) Insulin) 12 unit (0.12 mL) subcut ACHS #15 mL 07/29/22 [Rx Last Taken Unknown] metoclopramide HCl 5 mg tablet 5 mg PO TID #90 tabs 07/31/22 [Rx Last Taken Unknown] quetiapine 50 mg tablet (Seroquel) 50 mg PO QHS 08/12/22 [History Last Taken Unknown] Allergy/AdvReac Type Severity Reaction Status Date / Time allopurinol AdvReac Vomiting Verified 08/12/22 02:14 Influenza Virus Vaccines AdvReac Vomiting Verified 08/12/22 02:14 pneumococcal vaccine AdvReac Vomiting Verified 08/12/22 02:14 Family History Mother Diabetes Heart disease CHF Father Heart disease AL/CAD Myocardial infarction Surgical History H/O lithotripsy History of angioplasty of peripheral vessel (2016) History of angioplasty of peripheral vessel History of ankle surgery History of cardiac catheterization History of coronary artery stent placement (08/2016) History of coronary artery stent placement History of esophagogastroduodenoscopy (EGD) History of left heart catheterization (11/15/17) History of thyroid surgery Hx of lithotripsy Hx of surgery to heart and great vessels, presenting hazards to health Hx of surgical procedure Hx of thyroidectomy Hx of toe surgery Hx of toe surgery PEG (percutaneous endoscopic gastrostomy) status Social History household members: spouse housing: apartment Smoking Status: Never smoker alcohol intake: never substance use type: does not use ROS ROS ED Constitutional Constitutional ED: Reports chills and fever(s) Eyes Eyes: Denies change in vision or discharge from eye(s) ENT ENT ED: Denies discharge from eye(s), rhinorrhea or sore throat Cardiovascular Cardiovascular: Denies chest pain or palpitations Respiratory/Chest Respiratory/Chest: Reports cough and dyspnea Gastrointestinal Gastrointestinal: Denies diarrhea, nausea or vomiting Genitourinary Genitourinary ED: Denies dysuria Musculoskeletal Musculoskeletal: Denies back pain or extremity pain Integumentary Denies Abrasions or rash Neurologic Neurologic: Reports weakness; Denies headache(s) Allergic/Immunologic Allergic/Immunologic ED: Denies lip swelling or urticaria EXAM Physical Exam Const Vital Signs: 08/12/22 02:10 08/12/22 02:19 08/12/22 02:51 Temperature 100.2 F H Temperature Source Oral Pulse Rate 85 81 Respiratory Rate 20 H Respiratory Effort Normal Non-Labored Respiratory Pattern Tachypnea Blood Pressure 190/94 H Blood Pressure Mean 126 Pulse Ox 94 Oxygen Delivery Method Nasal Cannula Oxygen Flow Rate (L/min) 4 08/12/22 03:48 08/12/22 04:21 Temperature 100.2 F H 100.2 F H Temperature Source Oral Oral Pulse Rate 84 Respiratory Rate 22 H Respiratory Effort Respiratory Pattern Blood Pressure 148/76 H Blood Pressure Mean 100 Pulse Ox 99 Oxygen Delivery Method Nasal Cannula Oxygen Flow Rate (L/min) 4 Positive well nourished HEENT Reports moist mucous membranes Eyes PERRL and EOMs intact bilaterally Chest Wall inspection of chest normal and palpation of chest normal Resp Resp Narrative: Mild tachypnea. Lung sounds diminished at the bases bilaterally. No wheezing appreciated. Cardio regular rate and regular rhythm GI GI Narrative: Abdomen soft with no focal tenderness. Hypoactive bowel sounds noted. Extremity Extremity Narrative: Prior toe amputation noted on the right. Chronic wound noted to the heel of left foot. No calf tenderness or edema. Neuro oriented x3 Psych mental status grossly normal MDM MDM MDM Narrative Medical decision making narrative: Patient placed on monitor tech. EKG, chest x-ray, lab work obtained. Lab Data Attestation: I reviewed the patient's lab results. Labs: Laboratory Results - last 24 hr 08/12/22 08/12/22 08/12/22 02:45 02:45 02:45 WBC 13.7 H RBC 4.34 L Hgb 11.9 L Hct 38.2 L MCV 88.0 MCH 27.4 MCHC 31.2 L RDW Std Deviation 44.2 H RDW Coeff of James 13.7 Plt Count 220 MPV 11.1 Immature Gran % (Auto) 0.400 Neut % (Auto) 84.3 H Lymph % (Auto) 7.1 L [place] % (Auto) 6.9 Eos % (Auto) 1.0 Baso % (Auto) 0.3 Absolute Neuts (auto) 11.5 H Absolute Lymphs (auto) 0.97 Nucleated RBC % 0 PT 14.2 INR 1.1 APTT 25.1 Sodium 141 Potassium 3.7 Chloride 98 Carbon Dioxide 39.0 H Anion Gap 4 L BUN 19 H Creatinine 1.27 Estim Creat Clear Calc 61.47 Est GFR (MDRD) Af Amer 74 Est GFR (MDRD) Non-Af 61 BUN/Creatinine Ratio 15.0 Glucose 89 Lactic Acid Calcium 9.1 Total Bilirubin 0.40 AST 16 ALT 19 Alkaline Phosphatase 114 Total Protein 7.6 Albumin 3.3 Globulin 4.3 H Albumin/Globulin Ratio 0.8 L Urine Color Urine Clarity Urine pH Ur Specific [place] Urine Protein Urine Glucose (UA) Urine Ketones Urine Occult Blood Urine Nitrite Urine Bilirubin Urine Urobilinogen Ur Leukocyte Esterase Urine RBC Urine WBC Ur Squamous Epith Cells Urine Bacteria Urine Mucus 08/12/22 08/12/22 02:45 02:50 WBC RBC Hgb Hct MCV MCH MCHC RDW Std Deviation RDW Coeff of James Plt Count MPV Immature Gran % (Auto) Neut % (Auto) Lymph % (Auto) [place] % (Auto) Eos % (Auto) Baso % (Auto) Absolute Neuts (auto) Absolute Lymphs (auto) Nucleated RBC % PT INR APTT Sodium Potassium Chloride Carbon Dioxide Anion Gap BUN Creatinine Estim Creat Clear Calc Est GFR (MDRD) Af Amer Est GFR (MDRD) Non-Af BUN/Creatinine Ratio Glucose Lactic Acid 1.7 Calcium Total Bilirubin AST ALT Alkaline Phosphatase Total Protein Albumin Globulin Albumin/Globulin Ratio Urine Color Yellow Urine Clarity Clear Urine pH 7.0 Ur Specific [place] 1.010 Urine Protein 100 H Urine Glucose (UA) 100 H Urine Ketones Negative Urine Occult Blood 25 H Urine Nitrite Negative Urine Bilirubin Negative Urine Urobilinogen 1 H Ur Leukocyte Esterase Negative Urine RBC 0 SEEN Urine WBC 0 SEEN Ur Squamous Epith Cells 0 SEEN Urine Bacteria 0 SEEN Urine Mucus 0 SEEN Radiography Chest X-Ray - ED: 1 View, Read by ED Physician and Chronic Changes Diagnostic Testing: Clinical Impression(s) from Imaging Studies Chest X-Ray 08/12/22 02:52 IMPRESSION: 1. Low lung volumes limit the exam. 2. Probable chronic atelectasis of right middle and lower lobe similar to the prior exams. Consider CT to evaluate etiology of atelectasis. Electronically Signed: Wallace Matias MD at 3:07 EDT , Chest CT 08/12/22 03:18 IMPRESSION: 1. Complete atelectasis right middle lobe and near complete atelectasis right lower lobe. No specific etiology identified. Consider bronchoscopy. 2. Coronary artery disease. Electronically Signed: Wallace Matias MD at 4:15 EDT , EKG Initial EKG: Attestation: I personally reviewed and interpreted this EKG as follows: Interpretation: Sinus Rhythm (Sinus 81. Motion artifact from patient's chronic tremor is noted. No acute ST change.) Treatment and Re-Evaluation Narrative: Patient's white blood cell count is elevated at 13.7 with 84% neutrophils. Coags are unremarkable. Chemistry studies reveal chronic changes, no significant change from baseline. LFTs are unremarkable. Lactic acid is 1.7. Urinalysis reveals no acute infection. Chest x-ray reveals elevated right hemidiaphragm per my interpretation. Radiology interpretation is reviewed and believes there is likely atelectasis on the right, suggest considering CT. CT of the chest is obtained that shows complete atelectasis of the right middle lobe and near complete atelectasis of the right lower lobe. EKG reveals sinus rhythm with motion artifact from patient's chronic tremor. No acute ischemia is noted. At this time patient's temperature remains 100.2 after Tylenol. We will recheck at in another half hour. Blood and urine cultures have been obtained. Wound culture from his left heel wound will be obtained. Patient will be given Zosyn and vancomycin and will discuss with hospitalist regarding admission. Discharge Plan Triage Chief Complaint: General Illness ED Provider: Michelle Arvizu Dx/Rx/DC Orders Clinical Impression: Fever, Dyspnea, Atelectasis, Open wound of left heel, Generalized weakness Prescriptions: No Action aspirin [Adult Aspirin Regimen] 81 mg tablet,delayed release (DR/EC) 81 mg PO DAILY atorvastatin 80 mg tablet 80 mg PO QHS Qty: 90 2RF furosemide 40 mg tablet 40 mg PO DAILY Qty: 90 3RF finasteride 5 mg tablet 5 mg PO DAILY Qty: 90 3RF pantoprazole 20 mg tablet,delayed release (DR/EC) 20 mg PO DAILY albuterol sulfate 90 mcg/actuation HFA aerosol inhaler 2 puff inhalation Q4H PRN (Reason: shortness of breath or wheezing) Qty: 8.5 3RF Rx Instructions: administer with spacer carvedilol 12.5 mg tablet 12.5 mg PO BID Qty: 180 3RF loratadine [Allergy Relief (loratadine)] 10 mg tablet 10 mg PO DAILY (DME) Ultra-Light Rollator Misc See Rx Instructions .Route Qty: 1 2RF Rx Instructions: As directed acetaminophen 500 MG tablet 1,000 mg PO QHS PRN PRN (Reason: Pain 1-10 Or Fever) spironolactone 25 mg tablet 25 mg PO QHS Artificial Tears([id number]) 1-0.2-0.2 % Drops 2 drp EACH EYE Q1H PRN (Reason: DRY EYES) Qty: 0 0RF losartan 50 mg tablet 50 mg PO DAILY amlodipine 5 mg tablet 5 mg PO DAILY clonazepam 1 mg Tablet 1 mg PO BID PRN PRN (Reason: anxiety) Qty: 14 0RF nystatin [Nyamyc] 100,000 unit/gram Powder 1 applic topical BID Qty: 0 0RF Protocol: *Topical Application Instructions APPLICATION INSTRUCTIONS: to groin fluoxetine 20 mg Capsule 60 mg PO DAILY Qty: 0 0RF buspirone 7.5 mg tablet 15 mg PO TID Qty: 90 2RF (DME) gauze bandage [Bordered Gauze] 4 X 4 bandage See Rx Instructions .ROUTE .MEDSUPPLY Qty: 14 2RF Rx Instructions: Daily cleanse left foot wound with soap and water, dry and apply Betadine solution and apply clean dressing pregabalin [Lyrica] 75 mg capsule 75 mg PO BID Qty: 14 0RF quetiapine [Seroquel] 50 mg Tablet 50 mg PO QHS nitroglycerin 0.4 mg tablet, sublingual 0.4 mg SL Q5M PRN (Reason: Chest Pain) Qty: 30 0RF clopidogrel 75 mg tablet 75 mg PO DAILY Qty: 90 3RF isosorbide mononitrate 30 mg tablet extended release 24 hr 30 mg PO DAILY Qty: 90 3RF insulin detemir U-100 100 unit/mL (3 mL) insulin pen 44 unit subcut QHS Qty: 15 1RF insulin lispro [Humalog KwikPen Insulin] 100 unit/mL insulin pen 12 unit subcut ACHS Qty: 15 3RF metoclopramide HCl 5 mg tablet 5 mg PO TID Qty: 90 2RF Primary Care Provider: Doretha Brown Referrals: Doretha Brown MD [Primary Care Provider] - Disposition Disposition: Acute Care Hospital [facility]
[2022-08-12] MEDS: Acetaminophen 500 MG Tablet 1000 MG PO (02:50)
--- NOTE | 2022-08-12 02:52 | RAD_ITS ---
EXAM: XR CHEST, 1 VIEW CLINICAL INDICATION: sob TECHNIQUE: Frontal view of the chest. This report was created using [employer] report generation technology. COMPARISON: 08/01/2022, 07/01/2022, and 12/04/2021. FINDINGS: LUNGS AND PLEURAL SPACES: Low lung volumes limit the exam. Probable chronic atelectasis of right middle and lower lobe similar to the prior exams. No pneumothorax. No effusion. HEART: Unremarkable. Cardiac silhouette not enlarged. MEDIASTINUM: Central airways and mediastinal contour are unremarkable. BONES/JOINTS: Unremarkable. SOFT TISSUES: Unremarkable. RAD/Chest 1 View (Portable) IMPRESSION: 1. Low lung volumes limit the exam. 2. Probable chronic atelectasis of right middle and lower lobe similar to the prior exams. Consider CT to evaluate etiology of atelectasis. Electronically Signed: Wallace Matias MD at 3:07 EDT ,
[2022-08-12 02:59] LABS: Bacteria 0 SEEN /hpf (None Seen); Mucous, Urine 0 SEEN /hpf (<or=2+); Red Blood Cells-Urine 0 SEEN /hpf (0-5); Squamous Epithelial Cells - UA 0 SEEN /hpf (0-5); White Blood Cells 0 SEEN /hpf (0-5)
[2022-08-12 03:00] LABS: Absolute Lymphocyte Count 0.97 X10^3/uL (0.83-4.51); Absolute Neutrophil Count 11.5 X10^3/uL (2.0-7.7); Basophil# 0.04 X10^3/uL; Basophil% 0.3 % (0-1); Eosinophil# 0.14 X10^3/uL; Hematocrit 38.2 % (40-54); Hemoglobin 11.9 g/dL (13.0-16.5); Lymphocyte # 0.97 X10^3/ul (0.83-4.51); Lymphocyte % 7.1 % (19-41); Mean Corp Hgb Conc 31.2 g/dL (32-36); Mean Corpuscular Hgb 27.4 pg (27.0-32.0); Mean Platelet Vol. 11.1 fl (6.2-12.0); Monocyte# 0.94 X10^3/uL; Monocyte% 6.9 % (0-10); NRBC Flagged by Analyzer 0 % (0-5); Neutrophil # 11.52 X10^3/uL (2.7-7.7); Neutrophil % 84.3 % (47-70); Platelet Count 220 K/mm3 (150-450); RBC Distribution Width CV 13.7 % (11.6-14.6); RBC Distribution Width SD 44.2 fl (35.1-43.9); Red Blood Count 4.34 M/mm3 (4.6-6.2); White Blood Count 13.7 K/mm3 (4.4-11.0)
[2022-08-12 03:02] LABS: Color, Urine Yellow (Yellow); Glucose, Dipstick 100 mg/dl (Normal); Ketone-Dipstick Negative (Negative); Leukocyte Esterase-Dipstick Negative /ul (Negative); Nitrite-Dipstick Negative (Negative); Occult Blood-Urine 25 /ul (Negative); Protein-Dipstick 100 mg/dl (Negative); Urine Bilirubin Dipstick Negative (Negative); Urine Clarity Clear (Clear); Urine Urobilinogen 1 mg/dl (Normal)
[2022-08-12 03:09] LABS: International Normalized Ratio 1.1; Prothrombin Time (Protime)PT. 14.2 SECONDS (11.7-14.9)
[2022-08-12 03:10] LABS: Partial Thromboplast Time 25.1 Seconds (24.1-36.2)
[2022-08-12 03:18] LABS: ALB/GLOB Ratio 0.8 RATIO (0.9-2.4); AST(SGOT) 16 U/L (15-37); Alanine Aminotransfer ALT/SGPT 19 U/L (16-61); Albumin, Serum 3.3 g/dL (3.2-5.0); Alkaline Phosphatase 114 U/L (45-117); Anion Gap 4 (5-15); BUN 19 mg/dL (7-18); Calcium,Total 9.1 mg/dL (8.5-10.1); Chloride 98 mmol/L (98-107); Creatinine, Serum 1.27 mg/dL (0.70-1.30); EST Glomerular Filtration Rate 61 mL/min (>60); Est Glom Filt Rate - Afr Amer 74 mL/min (>60); Estimated Creatinine Clearance 61.47 ml/min; Globulin 4.3 g/dL (2.2-4.2); Glucose 89 mg/dL (74-106); Potassium 3.7 mmol/L (3.5-5.1); Protein, Total 7.6 g/dL (6.4-8.2); Sodium Level 141 mmol/L (136-145)
--- NOTE | 2022-08-12 03:18 | CT_ITS ---
EXAM: CT CHEST WITHOUT INTRAVENOUS CONTRAST CLINICAL INDICATION: sob TECHNIQUE: Helically acquired images were obtained of the chest without intravenous contrast. This CT exam was performed using one or more of the following dose reduction techniques: automated exposure control, adjustment of the mA and/or kV according to patient size, and/or use of iterative reconstruction technique. This report was created using [employer] report generation technology. RADIATION DOSE: CTDIvol = 20.15 mGy, DLP = 861.01 mGy-cm. COMPARISON: Chest x-ray 08/12/2022. FINDINGS: LUNGS AND PLEURAL SPACES: Complete atelectasis right middle lobe and near complete atelectasis right lower lobe. No mass. No pleural effusion or thickening. No pneumothorax. HEART: Coronary artery calcifications. Heart size is normal. No pericardial effusion. MEDIASTINUM: Unremarkable. No mediastinal or hilar adenopathy. Esophagus is unremarkable. No hiatal hernia. THYROID: Unremarkable. No thyroid lesions. BONES/JOINTS: Unremarkable. No suspicious lytic or blastic abnormality. VASCULATURE: Unremarkable. Thoracic aorta is non-dilated. CT/Chest without Contrast IMPRESSION: 1. Complete atelectasis right middle lobe and near complete atelectasis right lower lobe. No specific etiology identified. Consider bronchoscopy. 2. Coronary artery disease. Electronically Signed: Wallace Matias MD at 4:15 EDT ,
[2022-08-12 03:54] LABS: Lactic Acid 1.7 mmol/L (0.4-1.9)
--- NOTE | 2022-08-12 05:22 | HP.PCM.HOS_ITS ---
HPI - General General Date of Admission: 08/12/22 Date of Service: 08/12/22 Chief Complaint: Fever HPI Narrative REA HANNA, is a 62 M with a significant history of diabetes mellitus; COPD; congestive heart failure; CAD status post stents; recurrent aspiration pneumonia; congenital underdevelopment of right lung; and home 4 L nasal can nula oxygen who presents to emergency department with a fever. Reportedly his temperature at home was 100.3 Fahrenheit. Associated with symptom is chills and rigors. His symptoms started few hours before presentation. At baseline patient has a productive cough of white sputum. However, the color of his sputum has changed. His sputum now is multicolored. The patient has an ulcer at his left heel. The patient's thinks that the ulcer has shrunk in size. Emergency department ethanol saw patient on this presentation reports seeing patient recently and stated that the color of patient wound has changed [facility] Medical History Ambulates with cane Amputation of one or more toes Anxiety and depression Arrhythmia Arthritis Aspiration into airway Aspiration pneumonia Atherosclerotic heart disease of [place] coronary artery without angina pectoris Bilateral leg weakness Blind left eye Blister (nonthermal), left foot, initial encounter Bronchiectasis with (acute) exacerbation Cardiology follow-up encounter Chronic cough Chronic respiratory failure with hypoxia COPD (chronic obstructive pulmonary disease) CPAP (continuous positive airway pressure) dependence Debility, unspecified Depression Diabetes Essential hypertension Gastric reflux GERD (gastroesophageal reflux disease) High cholesterol History of aspiration pneumonia History of echocardiogram History of edema History of gout History of heart attack History of non-ST elevation myocardial infarction (NSTEMI) (08/2016) History of pain when walking History of steroid therapy History of stress test Hyperglycemia due to type 2 diabetes mellitus Hypertension Insulin dependent diabetes mellitus Kidney stones Leg pain, right Leukocytosis Low back pain Memory impairment Migraines Mood disorder Non-smoker Noncompliance by declining intervention or support On home oxygen therapy Peripheral vascular occlusive disease Pneumonia Prostate disease Pulmonary nodule, left Recurrent falls Right ankle pain Shortness of breath on exertion Silent aspiration Sleep apnea Tremor Type 2 diabetes mellitus Type 2 diabetes mellitus with diabetic polyneuropathy Ulcer of left foot, limited to breakdown of skin Vision loss of left eye Wears glasses Wound of left lower extremity Home Medications acetaminophen 500 mg tablet 1,000 mg PO QHS PRN PRN Pain 1-10 Or Fever 02/11/21 [History Last Taken 05/14/22 18:50 1000] aspirin 81 mg tablet,delayed release (Adult Aspirin Regimen) 81 mg PO DAILY heart health 11/05/21 [History Last Taken 07/01/22] spironolactone 25 mg tablet 25 mg PO QHS diuretic 11/08/21 [History Last Taken 07/01/22] peg [id number] 1 %-0.2 %-0.2 % eye drops (Artificial Tears ([id number])) 2 drp EACH EYE Q1H PRN DRY EYES #0 mL 11/14/21 [Rx Last Taken Unknown] nitroglycerin 0.4 mg sublingual tablet 0.4 mg sublingual Q5M PRN Chest Pain #30 tabs 11/25/21 [Rx Last Taken Unknown] atorvastatin 80 mg tablet 80 mg PO QHS cholesterol #90 tabs 01/09/22 [Rx Last Taken 06/30/22] finasteride 5 mg tablet 5 mg PO DAILY prostate #90 tabs 01/09/22 [Rx Last Taken 07/01/22] furosemide 40 mg tablet 40 mg PO DAILY fluid #90 tabs 01/09/22 [Rx Last Taken 07/01/22] albuterol sulfate 90 mcg/actuation aerosol inhaler 2 puff inhalation Q4H PRN shortness of breath or wheezing #8.5 grams 02/04/22 [Rx Last Taken Unknown] pantoprazole 20 mg tablet,delayed release 20 mg PO DAILY gerd 02/04/22 [History Last Taken 07/01/22] carvedilol 12.5 mg tablet 12.5 mg PO BID heart #180 tabs 02/05/22 [Rx Last Taken 07/01/22] losartan 50 mg tablet 50 mg PO DAILY bp 03/21/22 [History Last Taken 07/01/22] clopidogrel 75 mg tablet 75 mg PO DAILY blood thinner #90 tabs 03/30/22 [Rx Last Taken 07/01/22] isosorbide mononitrate 30 mg tablet,extended release 24 hr 30 mg PO DAILY heart #90 tabs 03/30/22 [Rx Last Taken 07/01/22] amlodipine 5 mg tablet 5 mg PO DAILY bp 05/21/22 [History Last Taken 07/01/22] loratadine 10 mg tablet (Allergy Relief (loratadine)) 10 mg PO DAILY allergies 05/21/22 [History Last Taken 07/01/22] insulin detemir U-100 100 unit/mL (3 mL) subcutaneous pen 44 unit (0.44 mL) subcut QHS dm #15 mL 05/26/22 [Rx Last Taken 06/30/22] buspirone 7.5 mg tablet 15 mg PO TID mood #90 tabs 07/03/22 [Rx Last Taken 07/01/22] clonazepam 1 mg tablet 1 mg PO BID PRN PRN anxiety #14 tabs 07/03/22 [Rx Last Taken Unknown] fluoxetine 20 mg capsule 60 mg PO DAILY #0 caps 07/03/22 [Rx Last Taken Unknown] gauze bandage 4 X 4 (Bordered Gauze) #14 ea 07/03/22 [Rx Last Taken Unknown] nystatin 100,000 unit/gram topical powder (Nyamyc) 1 applic topical BID #0 grams 07/03/22 [Rx Last Taken Unknown] walker (Ultra-Light [place] [facility] [place] #1 ea 07/21/22 [Rx Last Taken Unknown] metoclopramide HCl 5 mg tablet 5 mg PO TID #90 tabs 07/31/22 [Rx Last Taken Unknown] insulin lispro 100 unit/mL subcutaneous pen sliding scale dose subcut ACHS Check with primary doctor 08/12/22 [History Last Taken Unknown] pregabalin 75 mg capsule (Lyrica) 75 mg PO BID Check with primary doctor 08/12/22 [History Last Taken Unknown] quetiapine 50 mg tablet (Seroquel) 50 mg PO QHS 08/12/22 [History Last Taken Unknown] Allergy/AdvReac Type Severity Reaction Status Date / Time allopurinol AdvReac Vomiting Verified 08/12/22 02:14 Influenza Virus Vaccines AdvReac Vomiting Verified 08/12/22 02:14 pneumococcal vaccine AdvReac Vomiting Verified 08/12/22 02:14 Family History Mother Diabetes Heart disease CHF Father Heart disease AK/CAD Myocardial infarction Surgical History H/O lithotripsy History of angioplasty of peripheral vessel (2017) History of angioplasty of peripheral vessel History of ankle surgery History of cardiac catheterization History of coronary artery stent placement (08/2016) History of coronary artery stent placement History of esophagogastroduodenoscopy (EGD) History of left heart catheterization (11/15/17) History of thyroid surgery Hx of lithotripsy Hx of surgery to heart and great vessels, presenting hazards to health Hx of surgical procedure Hx of thyroidectomy Hx of toe surgery Hx of toe surgery PEG (percutaneous endoscopic gastrostomy) status Social History household members: spouse housing: apartment Smoking Status: Never smoker alcohol intake: never substance use type: does not use ROS ROS Narrative Pertinent positives and pertinent negatives as noted in HPI. All other systems were reviewed and are negative Vital Signs Vital Signs Vital Signs: 08/12/22 02:10 08/12/22 02:19 08/12/22 02:51 Temperature 100.2 F H Temperature Source Oral Pulse Rate 85 81 Respiratory Rate 20 H Respiratory Effort Normal Non-Labored Respiratory Pattern Tachypnea Blood Pressure 190/94 H Blood Pressure Mean 126 Pulse Ox 94 Oxygen Delivery Method Nasal Cannula Oxygen Flow Rate (L/min) 4 08/12/22 03:48 08/12/22 04:21 08/12/22 04:49 Temperature 100.2 F H 100.2 F H Temperature Source Oral Oral Pulse Rate 84 81 Respiratory Rate 22 H 24 H Respiratory Effort Respiratory Pattern Blood Pressure 148/76 H 170/65 H Blood Pressure Mean 100 100 Pulse Ox 99 98 Oxygen Delivery Method Nasal Cannula Room Air Oxygen Flow Rate (L/min) 4 08/12/22 05:00 Temperature 98.7 F Temperature Source Oral Pulse Rate 80 Respiratory Rate 17 Respiratory Effort Respiratory Pattern Blood Pressure 158/69 H Blood Pressure Mean 98 Pulse Ox 97 Oxygen Delivery Method Nasal Cannula Oxygen Flow Rate (L/min) 4 Weight Weight: 132 kg Body Mass Index (BMI) 41.7 Physical Exam Narrative Physical exam: General: Well-nourished, well-developed. Head: Normocephalic, atraumatic, no tenderness Eyes: Vision is grossly intact. EOMI ENT, no trauma, moist mucous membranes, no rhinorrhea Neck: Nontender, full range of motion, no spinal tenderness, deformities, step- off CVS: Regular rate and rhythm. S1-S2 present. No murmur, gallop or rub. Respiratory : clear to auscultation bilaterally, chest wall nontender, no wheezing Abdomen: Soft, nontender, nondistended, normal bowel sounds, no masses : Deferred Back: Nontender, no CVA tenderness, no midline spinal tenderness, deformities, step-offs Extremities: No gross of the right foot. Edematous right foot. Skin: Erythema at inguinal folds bilateral. Ulcer left heel. Neuro: Lethargic, oriented, cranial nerves II through XII grossly intact. Psychiatry: Lethargic Results Lab / Micro Data Result Diagrams: 08/12/22 02:45 08/12/22 02:45 Labs: Laboratory Results - last 24 hr 08/12/22 02:45: WBC 13.7 H, RBC 4.34 L, Hgb 11.9 L, Hct 38.2 L, MCV 88.0, MCH 27.4, MCHC 31.2 L, RDW Std Deviation 44.2 H, RDW Coeff of James 13.7, Plt Count 220, MPV 11.1, Immature Gran % (Auto) 0.400, Neut % (Auto) 84.3 H, Lymph % (Auto) 7.1 L, [place] % (Auto) 6.9, Eos % (Auto) 1.0, Baso % (Auto) 0.3, Absolute Neuts (auto) 11.5 H, Absolute Lymphs (auto) 0.97, Nucleated RBC % 0 08/12/22 02:45: PT 14.2, INR 1.1, APTT 25.1 08/12/22 02:45: Sodium 141, Potassium 3.7, Chloride 98, Carbon Dioxide 39.0 H, Anion Gap 4 L, BUN 19 H, Creatinine 1.27, Estim Creat Clear Calc 61.47, Est GFR (MDRD) Af Amer 74, Est GFR (MDRD) Non-Af 61, BUN/Creatinine Ratio 15.0, Glucose 89, Calcium 9.1, Total Bilirubin 0.40, AST 16, ALT 19, Alkaline Phosphatase 114, Total Protein 7.6, Albumin 3.3, Globulin 4.3 H, Albumin/Globulin Ratio 0.8 L 08/12/22 02:45: Lactic Acid 1.7 08/12/22 02:50: Urine Color Yellow, Urine Clarity Clear, Urine pH 7.0, Ur Specific [place] 1.010, Urine Protein 100 H, Urine Glucose (UA) 100 H, Urine Ketones Negative, Urine Occult Blood 25 H, Urine Nitrite Negative, Urine Bilirubin Negative, Urine Urobilinogen 1 H, Ur Leukocyte Esterase Negative, Urine RBC 0 SEEN, Urine WBC 0 SEEN, Ur Squamous Epith Cells 0 SEEN, Urine Bacteria 0 SEEN, Urine Mucus 0 SEEN Micro: Microbiology 08/12/22 02:30 Nasal Secretion SARS-CoV-2 & FLU Antigen (Rapid) - Final Radiology Impression Chest X-Ray 08/12/22 02:52 IMPRESSION: 1. Low lung volumes limit the exam. 2. Probable chronic atelectasis of right middle and lower lobe similar to the prior exams. Consider CT to evaluate etiology of atelectasis. Electronically Signed: Wallace Matias MD at 3:07 EDT , Chest CT 08/12/22 03:18 IMPRESSION: 1. Complete atelectasis right middle lobe and near complete atelectasis right lower lobe. No specific etiology identified. Consider bronchoscopy. 2. Coronary artery disease. 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 Lactic acid: 1.7 The patient presented with sepsis due to (infection) with acute sepsis related organ dysfunction as evidenced by (organ dysfunction/s). SIRS criteria: White counts of 13,700. Respiratory rate more than 20. No organ dysfunction. Sepsis ruled out. Blood culture ?2 is pending Radiologist impression of chest x-ray: 1.? Low lung volumes limit the exam 2.? Probable chronic atelectasis of right middle and lower lobe similar to the prior exams. Actual chest x-ray image and previous chest x-ray was visualized and independent interpreted. I agree radiology interpretation. However, patient has congenital development of right lung. Respiratory Gram stain and culture pending Antibiotics: Vancomycin and Zosyn started emergency department and continued. We will keep patient n.p.o. Consults pulmonary medicine. IV hydration. Albuterol as needed Legionella antigen screen and Strep antigen ordered Trend CBC and BMP. Left heel ulcer Unclear whether infected. Culture was taking at emergency department, follow up. Vancomycin and Zosyn as above. Diabetes mellitus Patient with euglycemic on presentation. Accu-Chek with correction scale insulin ordered. Hold off basal insulin. Chronic respiratory failure/congestive heart failure Records review: echocardiogram on 05/15/2021 showed ejection fraction of 60%. Pulmonary artery was normal. No hemodynamically significant valvular abnormalities noted. Stable on same oxygen requirements. CAD/PAD status post stent Per last stent was about 5 years ago Aspirin continued. Plavix held; awaiting pulmonary evaluation. Lethargy Patient is lethargic on examination. Per patient has taking Seroquel. We will hold off sedative medications at this time. DVT prophylaxis: SCDs ordered. Charges/Coding Visit Charges Inpatient E&M: 09781 Init Hosp L3
--- NOTE | 2022-08-12 07:01 | PCM.RX.CS ---
Consult Pharmacy has been consulted to manage selected antiobiotic: Vancomycin Type of Consult: New start Suspected Infection: Skin/Soft tissue, Pneumonia Prior Doses of Antibiotics Received/Current Regimen: received vanc 2000mg IV x1 in E.R. starting at 05:41 today Labs: Sodium 141 mmol/L (136-145) 08/12/22 02:45 Potassium 3.7 mmol/L (3.5-5.1) 08/12/22 02:45 Chloride 98 mmol/L (98-107) 08/12/22 02:45 Carbon Dioxide 39.0 mmol/L (21.0-32.0) H 08/12/22 02:45 Anion Gap 4 (5-15) L 08/12/22 02:45 BUN 19 mg/dL (7-18) H 08/12/22 02:45 Creatinine 1.27 mg/dL (0.70-1.30) 08/12/22 02:45 Est GFR (MDRD) Af Amer 74 mL/min (>60) 08/12/22 02:45 Est GFR (MDRD) Non-Af 61 mL/min (>60) 08/12/22 02:45 BUN/Creatinine Ratio 15.0 RATIO (10-20) 08/12/22 02:45 Glucose 89 mg/dL (74-106) 08/12/22 02:45 Microbiology: Microbiology 08/12/22 02:30 Nasal Secretion SARS-CoV-2 & FLU Antigen (Rapid) - Final Weight used for dosin.9 kg Estimated Creatinine Clearance: 80ml/min Goal Trough: 15-20 mcg/mL Pharmacy Plan for Drug Dosing: Starting 12 hours after the E.R. dose that was given, will continue with vanc 1250mg IV q12h. This is the dose that the patient was given here in April that resulted in a trough within the 15-20 range so elected to start that again instead of going with a higher dose as suggested on the dosing chart. Will check a trough before the 4th total dose. The patient's CrCl of 80ml/min was calculated using an adjusted body weight of 95kg. Pharmacy Service will continue to monitor and adjust dosing as required. Follow-Up Labs: Trough Vancomycin Labs to be done on [date and time ordered]: 08/13/22 17:30
[2022-08-12 07:05] LABS: Bedside Glucose 139 mg/dL (74-106)
[2022-08-12] MEDS: Metoclopramide 5 MG TABLET PO ×2 (08:11→22:40)
--- NOTE | 2022-08-12 09:06 | EX.PCM.CONCC ---
Assessment & Plan Assessment/Plan (1) Aspiration pneumonia: QUALIFIERS: Aspiration pneumonia type: due to gastric secretions (2) Gastroparesis: (3) Chronic respiratory failure with hypoxia: PLAN: Plan RECOMMENDATIONS: 1. Obtain ABG now 2. Antibiotics for aspiration pneumonia 3. Initiate vest therapy for pulmonary toileting 4. Scheduled bronchodilators 5. Potential transfer from [facility] pending results of ABG 6. N.p.o. until evaluated by speech 7. Check MRSA swab. If negative, likely okay to discontinue vancomycin IMPRESSIONS: 1. Right lower lobe atelectasis secondary to possible aspiration pneumonia in the setting of chronic hypoxic respiratory failure Patient does have a history of aspiration pneumonia in the past. Patient does have some atelectasis of the right lower lobe with the report of possible aspiration last 3 [address] patient on aggressive pulmonary toileting. If not improved in the next 24 to 48 hours, cannot exclude the need for bronchoscopy for airway evaluation. Will obtain an ABG at this time. Pending results, patient may require transfer for [facility] for initiation of BiPAP therapy. Doubt intubation will be required immediately. Patient will be scheduled on bronchodilators. Patient should be on antibiotics for aspiration pneumonia. Patient's lactate is within normal limits at this time. Cultures have been sent. Patient on empiric antibiotics at this time. Antigens are currently pending. 2. Chronic left heel ulcer secondary to diabetes mellitus and peripheral vascular disease Culture was taken in the emergency department. Patient is currently on vancomycin and Zosyn. Patient euglycemic on presentation. Hold basal insulin as patient is going to be n.p.o. given concern of aspiration. Accu-Cheks will be sufficient. 3. Congestive heart failure/coronary artery disease/PAD/lethargy/obesity Complicates care, management, recovery and prognosis. Patient did have an echocardiogram in 2020 showing preserved ejection fraction. Patient does not appear to be clinically overloaded in my opinion. Likely not necessary to increase diuretics from my perspective. Okay to continue with baseline medications. Would hold Seroquel until mental status improves. HPI Consult Data Date of Consult: 08/12/22 HPI Narrative Reason for Consultation: Possible bronchoscopy HPI Narrative: REA HANNA is a 62 M, with past medical history listed below and well-known to me from previous admissions, who presents to [facility] on 08/12/2022 secondary to shortness of breath, cough and fever since 9 PM the day prior. Patient reportedly has had a cough and has a history of aspiration pneumonia. Patient had told ER that he did not remember choking on anything, but then admitted to me that he had choked on something approximately 3 days ago. Patient reportedly did take his normal medications last night. Patient is on 4 L nasal cannula at baseline and has not been noted to be hypoxic. In the ER, patient's temperature was 100.2 ?F with a blood pressure of 148/76. Patient was saturating well on his baseline 4 L nasal cannula, but had an initial blood pressure of 190/94. Laboratory work-up showed a white blood cell count of 13.7, hemoglobin of 11.9 and platelets of 220. Coagulation studies were within normal limits. Chemistries showed an elevated bicarbonate of 39, creatinine of 1.27 and glucose of 89. Liver function studies were within normal limits, along with a lactate of 1.7. UA was relatively unremarkable. Chest x-ray showed a probable atelectasis of the right middle and lower lobes. This was subsequently followed by a CT scan of the chest showing atelectasis with consideration of bronchoscopy. For this reason, patient was admitted to the hospital and a pulmonary consult was obtained. On my evaluation, patient was very diaphoretic, but able to open his eyes and answer questions. Patient had stated that he did choke on something a couple days ago but thought it was nothing. Patient states he has been using his respiratory medications as prescribed. Patient is not reporting any current chest pain, but does have a wet cough. Patient denies any nausea or vomiting. No hematemesis, epistaxis or melena has been reported. Unable to obtain a full review of systems secondary to mental status. COUNTS INCLUDE 234 BEDS AT THE [facility] Medical History (Updated 08/12/22 @ 09:[address] Rosendo Foreman MD) Ambulates with cane Amputation of one or more toes Anxiety and depression Arrhythmia Arthritis Aspiration into airway Aspiration pneumonia Atherosclerotic heart disease of [place] coronary artery without angina pectoris Bilateral leg weakness Blind left eye Blister (nonthermal), left foot, initial encounter Bronchiectasis with (acute) exacerbation Cardiology follow-up encounter Chronic cough Chronic respiratory failure with hypoxia COPD (chronic obstructive pulmonary disease) CPAP (continuous positive airway pressure) dependence Debility, unspecified Depression Diabetes Essential hypertension Gastric reflux GERD (gastroesophageal reflux disease) High cholesterol History of aspiration pneumonia History of echocardiogram History of edema History of gout History of heart attack History of non-ST elevation myocardial infarction (NSTEMI) (08/2016) History of pain when walking History of steroid therapy History of stress test Hyperglycemia due to type 2 diabetes mellitus Hypertension Insulin dependent diabetes mellitus Kidney stones Leg pain, right Leukocytosis Low back pain Memory impairment Migraines Mood disorder Myocardial infarct Non-smoker Noncompliance by declining intervention or support On home oxygen therapy Peripheral vascular occlusive disease Pneumonia Prostate disease Pulmonary nodule, left Recurrent falls Right ankle pain Shortness of breath on exertion Silent aspiration Sleep apnea Tremor Type 2 diabetes mellitus Type 2 diabetes mellitus with diabetic polyneuropathy Ulcer of left foot, limited to breakdown of skin 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 Wears glasses Wound of left lower extremity Home Medications acetaminophen 500 mg tablet 1,000 mg PO QHS PRN PRN Pain 1-10 Or Fever 02/11/21 [History Last Taken 05/14/22 18:50 1000] aspirin 81 mg tablet,delayed release (Adult Aspirin Regimen) 81 mg PO DAILY heart health 11/05/21 [History Last Taken 07/01/22] spironolactone 25 mg tablet 25 mg PO QHS diuretic 11/08/21 [History Last Taken 07/01/22] peg [id number] 1 %-0.2 %-0.2 % eye drops (Artificial Tears ([id number])) 2 drp EACH EYE Q1H PRN DRY EYES #0 mL 11/14/21 [Rx Last Taken Unknown] nitroglycerin 0.4 mg sublingual tablet 0.4 mg sublingual Q5M PRN Chest Pain #30 tabs 11/25/21 [Rx Last Taken Unknown] atorvastatin 80 mg tablet 80 mg PO QHS cholesterol #90 tabs 01/09/22 [Rx Last Taken 06/30/22] finasteride 5 mg tablet 5 mg PO DAILY prostate #90 tabs 01/09/22 [Rx Last Taken 07/01/22] furosemide 40 mg tablet 40 mg PO DAILY fluid #90 tabs 01/09/22 [Rx Last Taken 07/01/22] albuterol sulfate 90 mcg/actuation aerosol inhaler 2 puff inhalation Q4H PRN shortness of breath or wheezing #8.5 grams 02/04/22 [Rx Last Taken Unknown] pantoprazole 20 mg tablet,delayed release 20 mg PO DAILY gerd 02/04/22 [History Last Taken 07/01/22] carvedilol 12.5 mg tablet 12.5 mg PO BID heart #180 tabs 02/05/22 [Rx Last Taken 07/01/22] losartan 50 mg tablet 50 mg PO DAILY bp 03/21/22 [History Last Taken 07/01/22] clopidogrel 75 mg tablet 75 mg PO DAILY blood thinner #90 tabs 03/30/22 [Rx Last Taken 07/01/22] isosorbide mononitrate 30 mg tablet,extended release 24 hr 30 mg PO DAILY heart #90 tabs 03/30/22 [Rx Last Taken 07/01/22] amlodipine 5 mg tablet 5 mg PO DAILY bp 05/21/22 [History Last Taken 07/01/22] loratadine 10 mg tablet (Allergy Relief (loratadine)) 10 mg PO DAILY allergies 05/21/22 [History Last Taken 07/01/22] insulin detemir U-100 100 unit/mL (3 mL) subcutaneous pen 44 unit (0.44 mL) subcut QHS dm #15 mL 05/26/22 [Rx Last Taken 06/30/22] buspirone 7.5 mg tablet 15 mg PO TID mood #90 tabs 07/03/22 [Rx Last Taken 07/01/22] clonazepam 1 mg tablet 1 mg PO BID PRN PRN anxiety #14 tabs 07/03/22 [Rx Last Taken Unknown] fluoxetine 20 mg capsule 60 mg PO DAILY #0 caps 07/03/22 [Rx Last Taken Unknown] gauze bandage 4 X 4 (Bordered Gauze) #14 ea 07/03/22 [Rx Last Taken Unknown] nystatin 100,000 unit/gram topical powder (Nyamyc) 1 applic topical BID #0 grams 07/03/22 [Rx Last Taken Unknown] leslie (Ultra-Light Rollator misc) #1 ea 07/21/22 [Rx Last Taken Unknown] metoclopramide HCl 5 mg tablet 5 mg PO TID #90 tabs 07/31/22 [Rx Last Taken Unknown] insulin lispro 100 unit/mL subcutaneous pen sliding scale dose subcut ACHS Check with primary doctor 08/12/22 [History Last Taken Unknown] pregabalin 75 mg capsule (Lyrica) 75 mg PO BID Check with primary doctor 08/12/22 [History Last Taken Unknown] quetiapine 50 mg tablet (Seroquel) 50 mg PO QHS Check with primary doctor 08/12/22 [History Last Taken Unknown] Allergy/AdvReac Type Severity Reaction Status Date / Time allopurinol AdvReac Vomiting Verified 08/12/22 02:14 Influenza Virus Vaccines AdvReac Vomiting Verified 08/12/22 02:14 pneumococcal vaccine AdvReac Vomiting Verified 08/12/22 02:14 Family History Mother Diabetes Heart disease CHF Father Heart disease CT/CAD Myocardial infarction Surgical History H/O lithotripsy History of angioplasty of peripheral vessel (2016) History of angioplasty of peripheral vessel History of ankle surgery History of cardiac catheterization History of coronary artery stent placement (08/2016) History of coronary artery stent placement History of esophagogastroduodenoscopy (EGD) History of left heart catheterization (11/15/17) History of thyroid surgery Hx of lithotripsy Hx of surgery to heart and great vessels, presenting hazards to health Hx of surgical procedure Hx of thyroidectomy Hx of toe surgery Hx of toe surgery PEG (percutaneous endoscopic gastrostomy) status Social History household members: spouse housing: apartment Smoking Status: Never smoker alcohol intake: never substance use type: does not use ROS Review of Systems ROS Unobtainable: due to mental status Physical Exam Const oriented x3 Constitutional Narrative: Diaphoretic. Speaks in 5-6 word sentences. General Appearance: lethargic and ill appearing HEENT normocephalic, head/scalp atraumatic and oropharynx normal Eyes PERRL and EOMs intact bilaterally Sclera: sclera abnormal Positive for bilateral Details: scleral injection Neck no lymphadenopathy, supple and no JVD General: trachea midline Resp normal respiratory effort and no use of accessory muscles Resp Narrative: On 4L of oxygen by nasal canula, which is his baseline Auscultation: rhonchi right lower and diminished lung sounds; Negative for rales or wheezes Percussion: Negative for dullness Cardio regular rate, regular rhythm, S1 normal heart sound, S2 normal heart sound, no murmurs, no rub, no gallops, no JVD and peripheral pulses 2+ throughout GI normal to inspection, nondistended, normoactive bowel sounds, soft to palpation, non-tender and non-distended Extremity normal to inspection, full ROM, normal capillary refill and no clubbing, cyanosis or edema Skin Lesions: no lesions Rashes: no rashes Neuro oriented x3, moves all extremities, no focal motor deficits and no sensory deficits noted Psych cooperative Mood & Affect: flat affect Lab / Micro Data Attestation: I reviewed the patient's lab results. Result Diagrams: 08/12/22 02:45 08/12/22 02:45 Labs: Laboratory Results - last 24 hr 08/12/22 02:45: WBC 13.7 H, RBC 4.34 L, Hgb 11.9 L, Hct 38.2 L, MCV 88.0, MCH 27.4, MCHC 31.2 L, RDW Std Deviation 44.2 H, RDW Coeff of James 13.7, Plt Count 220, MPV 11.1, Immature Gran % (Auto) 0.400, Neut % (Auto) 84.3 H, Lymph % (Auto) 7.1 L, [place] % (Auto) 6.9, Eos % (Auto) 1.0, Baso % (Auto) 0.3, Absolute Neuts (auto) 11.5 H, Absolute Lymphs (auto) 0.97, Nucleated RBC % 0 08/12/22 02:45: PT 14.2, INR 1.1, APTT 25.1 08/12/22 02:45: Sodium 141, Potassium 3.7, Chloride 98, Carbon Dioxide 39.0 H, Anion Gap 4 L, BUN 19 H, Creatinine 1.27, Estim Creat Clear Calc 61.47, Est GFR (MDRD) Af Amer 74, Est GFR (MDRD) Non-Af 61, BUN/Creatinine Ratio 15.0, Glucose 89, Calcium 9.1, Total Bilirubin 0.40, AST 16, ALT 19, Alkaline Phosphatase 114, Total Protein 7.6, Albumin 3.3, Globulin 4.3 H, Albumin/Globulin Ratio 0.8 L 08/12/22 02:45: Lactic Acid 1.7 08/12/22 02:50: Urine Color Yellow, Urine Clarity Clear, Urine pH 7.0, Ur Specific [place] 1.010, Urine Protein 100 H, Urine Glucose (UA) 100 H, Urine Ketones Negative, Urine Occult Blood 25 H, Urine Nitrite Negative, Urine Bilirubin Negative, Urine Urobilinogen 1 H, Ur Leukocyte Esterase Negative, Urine RBC 0 SEEN, Urine WBC 0 SEEN, Ur Squamous Epith Cells 0 SEEN, Urine Bacteria 0 SEEN, Urine Mucus 0 SEEN 08/12/22 06:44: POC Glucose 139 H Micro: Microbiology 08/12/22 02:30 Nasal Secretion SARS-CoV-2 & FLU Antigen (Rapid) - Final Radiology Impression Chest X-Ray 08/12/22 02:52 IMPRESSION: 1. Low lung volumes limit the exam. 2. Probable chronic atelectasis of right middle and lower lobe similar to the prior exams. Consider CT to evaluate etiology of atelectasis. Electronically Signed: Wallace Matias MD at 3:07 EDT , Chest CT 08/12/22 03:18 IMPRESSION: 1. Complete atelectasis right middle lobe and near complete atelectasis right lower lobe. No specific etiology identified. Consider bronchoscopy. 2. Coronary artery disease. Electronically Signed: Wallace Matias MD at 4:15 EDT , Charges/Coding Visit Charges Inpatient E&M: 00366 Init Hosp L3
[2022-08-12 09:35] LABS: Base Excess 12 mmol/L (-2 to +2); Bicarbonate 37.2 mmol/L (22-26); Blood Gas Specimen Type ART; LPM 2.5 /min; O2 Delivery Device Cannula; PO2 102 mmHG (75-100); SITE R Brach; SO2 98 % (95-99); Total Carbon Dioxide 39 mmol/L; pCO2 61.5 mmHg (35-45); pH 7.39 (7.35-7.45)
--- NOTE | 2022-08-12 10:56 | CASEMGMT ---
Social Work Telephone call from [facility], Cathy Aceves. Cathy reports to be rehabilitation case coordinator following patient and would like to be updated when patient discharges from the hospital. Cathy reports that direct number is [phone]. This social insurance administrator updated the unit social insurance administrator on above information. Rosa Maria SIMEON, KOLES
[2022-08-12] MEDS: Ipratropium/Albuterol Sulfate 3 ML AMPUL.NEB INHALATION ×2 (10:58→18:52)
--- NOTE | 2022-08-12 11:15 | CASEMGMT ---
ALICE PHOENIX Assessment: Face to Face with pt for initial transition planning/care coordination assessment. ALICE PHOENIX introduced self and role at [facility], pt sig other voices understanding and consents to assessment. Pt is lying with eyes closed and oxygen on and did not open eyes for entire assessment. Care providers, pharmacy, and demographics verified/updated. Admitting Dx: PNA PCP:Kevin Specialists:Friend, GI; Yannick, pulwillie; [facility] cardio; Trae, nephro; Rivera, neuro Preferred Pharmacy: [facility] Insurance: My Care [facility] Prescription Benefit: yes LW/HPOA: Pt has DPOA on file at [facility] and his DPOA is his sig other She Gipson. LNOK: She Brandan, sig other Living Arrangements: Pt lives with sig other and her son in a ground level apt with no steps to enter. Pt relies on his aide and sig other for all ADL and IADL's. Transportation: Pt sig other provides transportation for pt to medical appts. DME/HHC/SNF: Pt has oxygen through [employer], will call to verify. Pt has portable tanks at home, shower chair, rollator, walker, electric scooter, cane and w/c. Pt has had [facility] in the past and has been to [place] [facility] and [facility]. Pt sig other states pt last was at [place] for 5 days and had been approved for 19. She states the day patient came home, he fell going into the house and it took 3 EMT's to get him up and in the house. This past Wednesday, pt was going to the [facility], which he does on Wednesdays and pt fell getting into the car. She also fell backward and hit head on concrete during this trf. Pt was seen in the ER and dc'd home. Sig other states pt has [facility] aide 5 days a week, 3 hours/day. She states pt was supposed to have been set up with [facility] but has not seen anyone. Sig other has been changing the wound which is a dry dressing on Wednesdays (if no wound center appt) and Fridays. States pt is in process of skin graft. She states pt is aware he needs to go to a facility again for therapy and is agreeable. She states she cannot lift pt and neither can her and her son together. RN in to check pt blood sugar, pt did not wake enough to discuss plan. Pt sig other states no further concerns/needs. CM to follow. Advised pt sig other to ask CM if any further question/concerns/needs arise, voices understanding. Pt Sig Other's Goal: SNF for therapy Plan: SNF, updated SW that pt has [facility] Email to palliative care and received confirmation that patient is active with their services. They are aware pt is hospitalized.
[2022-08-12 11:45] LABS: Bedside Glucose 157 mg/dL (74-106)
--- NOTE | 2022-08-12 11:50 | NURSING ---
in to fix beeping iv. pt noted to be drowsy but does arouse to verbal stimuli. Significant other at bedside states pt was started on a new medication seroquel. states was having insomnia and was instructed to take 1 or 2 pills, states started first dose last night and was only 1 pill. Primary RN updated.
[2022-08-12 12:44] LABS: M R Staph aureus DNA By PCR Negative (Negative); Probe Check PASS; Specimen Processing Control PASS
--- NOTE | 2022-08-12 15:03 | CASEMGMT ---
Social Work SW in to meet with pt. Re-introduced self and role at the hospital. Pt stated remembers this worker. SW discussed discharge plan with pt and his SO She. ?A printed list of SNF providers including quality and resources use date that is consistent with patient's preferred geographical region, medical needs, and insurances network were provided via the [facility] Guide Link.?Pt stated he does not need to look at list and chooses [facility] as his choice of SNF. SW updated discharge payroll assistant, Madhuri Morgan, of pt choice. Referral to be sent via [facility]. Plan: [facility], pending acceptance and precert. MINISTERIO Kennedy
--- NOTE | 2022-08-12 15:51 | CASEMGMT ---
Discharge Grocery Store Associate Madhuri tomlin library circulation assistant was notified by RICO Chery that a referral was needing to be sent to [facility]. Referral sent via [facility] Plan: [place], Waiting Acceptance Madhuri Morgan Discharge Grocery Store Associate
[2022-08-12 16:45] LABS: Bedside Glucose 124 mg/dL (74-106)
--- NOTE | 2022-08-12 22:13 | CPS ---
PATIENT REFUSED BIPAP.
[2022-08-12] MEDS: hydrALAZINE 20 MG/ML Vial 5 MG IV (22:34)
[2022-08-12] MEDS: 0.9% Saline Lock 10 ML Syringe IV (22:35)
[2022-08-12] MEDS: Spironolactone 25 MG Tablet PO (22:38)
[2022-08-12] MEDS: busPIRone 15 MG TABLET PO (22:38)
[2022-08-12] MEDS: Carvedilol 12.5 MG Tablet PO (22:38)
[2022-08-12] MEDS: guaiFENesin 1,200 MG Tablet 1200 MG PO (22:41)
[2022-08-12 23:16] LABS: Bedside Glucose 125 mg/dL (74-106)
[2022-08-13] VITALS (12 sets, daily range): BP systolic 148–176; BP diastolic 63–94; PULSE 62–83; RESP 16–24; TEMP 36.4–36.9; O2SAT 96–98
[2022-08-13] MEDS: hydrALAZINE 20 MG/ML Vial 5 MG IV (04:10)
[2022-08-13] MEDS: 0.9% Saline Lock 10 ML Syringe IV (04:10)
[2022-08-13 05:02] LABS: Absolute Lymphocyte Count 1.55 X10^3/uL (0.83-4.51); Absolute Neutrophil Count 7.9 X10^3/uL (2.0-7.7); Basophil# 0.04 X10^3/uL; Basophil% 0.4 % (0-1); Eosinophil# 0.11 X10^3/uL; Hematocrit 36.6 % (40-54); Hemoglobin 11.6 g/dL (13.0-16.5); Lymphocyte # 1.55 X10^3/ul (0.83-4.51); Lymphocyte % 14.6 % (19-41); Mean Corp Hgb Conc 31.7 g/dL (32-36); Mean Corpuscular Hgb 27.5 pg (27.0-32.0); Mean Corpuscular Volume 86.7 fL (80-94); Mean Platelet Vol. 11.5 fl (6.2-12.0); Monocyte# 1.05 X10^3/uL; Monocyte% 9.9 % (0-10); NRBC Flagged by Analyzer 0 % (0-5); Neutrophil # 7.85 X10^3/uL (2.7-7.7); Neutrophil % 73.8 % (47-70); Platelet Count 185 K/mm3 (150-450); RBC Distribution Width CV 13.9 % (11.6-14.6); RBC Distribution Width SD 43.4 fl (35.1-43.9); Red Blood Count 4.22 M/mm3 (4.6-6.2); White Blood Count 10.6 K/mm3 (4.4-11.0)
[2022-08-13 05:31] LABS: Anion Gap 4 (5-15); BUN 18 mg/dL (7-18); BUN/Creat Ratio 15.4 RATIO (10-20); Chloride 104 mmol/L (98-107); Creatinine, Serum 1.17 mg/dL (0.70-1.30); EST Glomerular Filtration Rate 67 mL/min (>60); Est Glom Filt Rate - Afr Amer 81 mL/min (>60); Estimated Creatinine Clearance 66.73 ml/min; Glucose 132 mg/dL (74-106); Potassium 3.6 mmol/L (3.5-5.1); Sodium Level 141 mmol/L (136-145)
[2022-08-13] MEDS: Acetaminophen 325 MG Tablet 650 MG PO (05:48)
[2022-08-13] MEDS: Metoclopramide 5 MG TABLET PO ×3 (05:50→20:37)
[2022-08-13] MEDS: busPIRone 15 MG TABLET PO ×3 (05:50→20:39)
[2022-08-13 07:00] LABS: Bedside Glucose 131 mg/dL (74-106)
[2022-08-13] MEDS: Ipratropium/Albuterol Sulfate 3 ML AMPUL.NEB INHALATION ×2 (07:25→18:48)
--- NOTE | 2022-08-13 08:01 | CASEMGMT ---
Addendum entered by Miri Sellers 08/14/22 11:45: HCPOA on file in pt chart. SW offered education on LW document. Pt declined completing LW at this time. MINISTERIO Kennedy Original Note: Social Work Per pt, has HCPOA naming She Marin, pt's significant other as agent. Pt does not have living will and declines information on completing this document. MINISTERIO Kennedy
--- NOTE | 2022-08-13 08:05 | CASEMGMT ---
Discharge Worm Farmer Maria De Jesus from [place] reached out. Maria De Jesus is looking over patients referral and would like to know if patient will be discharged on IV antibiotics. Madhuri asked RICO Chery and she is unaware at this time. Madhuri will keep following up as this is being put on hold to see if [facility] accepts patient or not. Plan: [place] Waiting Acceptance. Madhuri Morgan Discharge Worm Farmer
--- NOTE | 2022-08-13 08:52 | PCM.PN.INT ---
Assessment & Plan Assessment/Plan (1) Aspiration pneumonia: QUALIFIERS: Aspiration pneumonia type: due to gastric secretions (2) Gastroparesis: (3) Chronic respiratory failure with hypoxia: PLAN: Plan RECOMMENDATIONS: 1. Discontinue Seroquel 2. Likely okay to discontinue antibiotics 3. Continue Acapella for pulmonary toileting 4. Scheduled bronchodilators 5. Potential discharge today. Would not recommend Seroquel moving forward IMPRESSIONS: 1. Exacerbation of chronic hypoxic respiratory failure secondary to serotonin syndrome Patient does have a history of aspiration pneumonia in the past. Patient with rapid resolution of symptomatology overnight. It is unlikely that this is related to an aspiration event and may have represented atelectasis. Some concern for serotonin syndrome leading to fever, sweats and decreased mental status. Patient should discontinue Seroquel. Patient back on his baseline oxygen. Patient should follow-up per routine. No indication for antibiotics or steroid burst in my opinion. 2. Chronic left heel ulcer secondary to diabetes mellitus and peripheral vascular disease Culture was taken in the emergency department. Okay to reinitiate baseline medications. Continue wound care Accu-Cheks will be sufficient. 3. Congestive heart failure/coronary artery disease/PAD/lethargy/obesity Complicates care, management, recovery and prognosis. Patient did have an echocardiogram in 2020 showing preserved ejection fraction. Patient does not appear to be clinically overloaded in my opinion. Likely not necessary to increase diuretics from my perspective. Okay to continue with baseline medications. Would not recommend Seroquel moving forward. Subjective Subjective Patient did well overnight. This morning, patient feels that he is back to normal. Patient is not reporting any worsening cough. No fevers have been noted. Patient does report that he has had some weakness in the last 1 to 2 days. Patient is now saying that he did not have an aspiration event. Objective Data Objective Data Vital Signs: Vital Signs Temp Pulse Resp BP Pulse Ox O2 Del Method O2 Flow Rate 36.7 C 83 20 H 167/80 H 96 Nasal Cannula 2 08/13/22 04:07 08/13/22 07:25 08/13/22 07:25 08/13/22 05:53 08/13/22 07:25 08/13/22 07:25 08/13/22 07:25 Oxygen Flow Rate (L/min) 2 Oxygen Delivery Method Nasal Cannula Weight: 127.9 kg Body Mass Index (BMI) 40.4 Intake & Output: Intake and Output for Last 24 Hours 08/11/22 08/12/22 08/13/22 23:59 23:59 23:59 Intake Total 940 / 940 50 / 50 Output Total 300 / 300 1050 / 1050 Balance 640 / 640 -1000 / -1000 Lab / Micro Data Attestation: I reviewed the patient's lab results. Result Diagrams: 08/13/22 04:39 08/13/22 04:39 Labs: Laboratory Results - last 24 hr 08/12/22 10:50: MRSA (PCR) Negative 08/12/22 11:26: POC Glucose 157 H 08/12/22 16:24: POC Glucose 124 H 08/12/22 22:28: POC Glucose 125 H 08/13/22 04:39: WBC 10.6, RBC 4.22 L, Hgb 11.6 L, Hct 36.6 L, MCV 86.7, MCH 27.5, MCHC 31.7 L, RDW Std Deviation 43.4, RDW Coeff of James 13.9, Plt Count 185, MPV 11.5, Immature Gran % (Auto) 0.300, Neut % (Auto) 73.8 H, Lymph % (Auto) 14.6 L, [place] % (Auto) 9.9, Eos % (Auto) 1.0, Baso % (Auto) 0.4, Absolute Neuts (auto) 7.9 H, Absolute Lymphs (auto) 1.55, Nucleated RBC % 0 08/13/22 04:39: Sodium 141, Potassium 3.6, Chloride 104, Carbon Dioxide 33.0 H, Anion Gap 4 L, BUN 18, Creatinine 1.17, Estim Creat Clear Calc 66.73, Est GFR (MDRD) Af Amer 81, Est GFR (MDRD) Non-Af 67, BUN/Creatinine Ratio 15.4, Glucose 132 H, Calcium 9.0 08/13/22 06:21: POC Glucose 131 H Micro: Microbiology 08/12/22 04:53 Wound - Left Foot Gram Stain - Final 08/12/22 02:40 Urine, Clean Catch Legionella Antigen - Final 08/12/22 02:40 Urine, Clean Catch Streptococcus pneumoniae Antigen (M - Final 08/12/22 02:30 Nasal Secretion SARS-CoV-2 & FLU Antigen (Rapid) - Final ABG Data ABG results: ABG 08/12/22 09:28 Specimen Type ART Sample Site R Brach pH 7.39 Bicarbonate Actual 37.2 H Total CO2 39 Base Excess 12 H O2 Saturation 98 ABG pCO2 61.5 H ABG pO2 102 H Gabe Test N/A O2 Delivery Device Cannula Liter Flow 2.5 Physical Exam Const alert, oriented x3 and no apparent distress Constitutional Narrative: Not diaphoretic at all General Appearance: cooperative and well developed HEENT normocephalic, head/scalp atraumatic and oropharynx normal Eyes PERRL, EOMs intact bilaterally, conjunctivae normal and no scleral icterus Neck no lymphadenopathy, supple and no JVD General: trachea midline Resp normal respiratory effort and no use of accessory muscles Resp Narrative: On 4L of oxygen by nasal canula, which is his baseline Auscultation: diminished lung sounds; Negative for rales, rhonchi or wheezes Percussion: Negative for dullness Cardio regular rate, regular rhythm, S1 normal heart sound, S2 normal heart sound, no murmurs, no rub, no gallops, no JVD and peripheral pulses 2+ throughout GI normal to inspection, nondistended, normoactive bowel sounds, soft to palpation, non-tender and non-distended Extremity normal to inspection, full ROM, normal capillary refill and no clubbing, cyanosis or edema Skin Lesions: no lesions Rashes: no rashes Neuro oriented x3, moves all extremities, no focal motor deficits and no sensory deficits noted Psych cooperative and affect normal Charges/Coding Visit Charges Inpatient E&M: 12109 Subs Hosp L2
[2022-08-13] MEDS: amLODIPine 5 MG Tablet PO (09:08)
[2022-08-13] MEDS: Aspirin E.C. 81 MG Tablet PO (09:08)
[2022-08-13] MEDS: Finasteride 5 MG Tablet PO (09:08)
[2022-08-13] MEDS: Losartan Potassium 50 MG Tablet PO (09:08)
[2022-08-13] MEDS: Isosorbide Mononitrate 30 MG Tablet PO (09:08)
[2022-08-13] MEDS: Carvedilol 12.5 MG Tablet PO ×2 (09:08→20:38)
[2022-08-13] MEDS: Loratadine 10 MG Tablet PO (09:08)
[2022-08-13] MEDS: guaiFENesin 1,200 MG Tablet 1200 MG PO ×2 (09:08→20:37)
[2022-08-13] MEDS: FLUoxetine 20 MG Capsule 60 MG PO (09:08)
[2022-08-13] MEDS: Clopidogrel Bisulfate 75 MG Tablet PO (09:08)
--- NOTE | 2022-08-13 10:59 | CASEMGMT ---
Discharge Diet Technician Registered Maria De Jesus from [facility] reached out. Patient has been accepted at [facility]. Madhuri villanueva/grace ice cream freezer assistant reached out to [facility] Chery to see if pre-cert should be started. Waiting to hear back from [facility] Chery. Will follow up. Plan: [place], Waiting for the okay to start pre-cert. Madhuri Morgan Discharge Diet Technician Registered
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
--- NOTE | 2022-08-13 11:35 | CASEMGMT ---
Discharge Professor Of Business Administration/ [facility] Chery reached out to this caption writer. Miri stated to go ahead and have [place] [facility] start pre-cert. Madhuri notified [place] to start pre-cert on 08/13/2022 @ 11:33am Plan: [place], Waiting pre-cert to be obtained. Madhuri Morgan Discharge Professor Of Business Administration
[2022-08-13 12:10] LABS: Bedside Glucose 206 mg/dL (74-106)
[2022-08-13] MEDS: Ondansetron 4 MG/2 ML Vial IV (13:07)
[2022-08-13] MEDS: Nystatin Powder 15gm Bottle 1 APPLIC TOPICAL (13:11)
--- NOTE | 2022-08-13 14:18 | PN.HOSP_ITS ---
Subjective Subjective He did admit to choking last week however there is also the possibility that this could be serotonin syndrome secondary to his diaphoresis, redness, tachycardia as well as him having taken his first dose of Seroquel the night before presentation. Objective Data Objective Data Vital Signs: Vital Signs Temp Pulse Resp BP Pulse Ox O2 Del Method O2 Flow Rate 97.6 F L 69 16 158/94 H 97 Nasal Cannula 2 08/13/22 09:13 08/13/22 09:13 08/13/22 09:13 08/13/22 09:13 08/13/22 09:13 08/13/22 10:00 08/13/22 11:39 Oxygen Flow Rate (L/min) 2 Oxygen Delivery Method Nasal Cannula Weight: 281 lb 15.539 oz Body Mass Index (BMI) 40.4 Intake & Output: Intake and Output for Last 24 Hours 08/12/22 08/13/22 08/14/22 03:59 03:59 03:59 Intake Total 990 / 990 325 / 325 Output Total 300 / 300 1050 / 1050 Balance 690 / 690 -725 / -725 Lab / Micro Data Result Diagrams: 08/13/22 04:39 08/13/22 04:39 Labs: Laboratory Results - last 24 hr 08/12/22 16:24: POC Glucose 124 H 08/12/22 22:28: POC Glucose 125 H 08/13/22 04:39: WBC 10.6, RBC 4.22 L, Hgb 11.6 L, Hct 36.6 L, MCV 86.7, MCH 27.5, MCHC 31.7 L, RDW Std Deviation 43.4, RDW Coeff of James 13.9, Plt Count 185, MPV 11.5, Immature Gran % (Auto) 0.300, Neut % (Auto) 73.8 H, Lymph % (Auto) 14.6 L, [place] % (Auto) 9.9, Eos % (Auto) 1.0, Baso % (Auto) 0.4, Absolute Neuts (auto) 7.9 H, Absolute Lymphs (auto) 1.55, Nucleated RBC % 0 08/13/22 04:39: Sodium 141, Potassium 3.6, Chloride 104, Carbon Dioxide 33.0 H, Anion Gap 4 L, BUN 18, Creatinine 1.17, Estim Creat Clear Calc 66.73, Est GFR (MDRD) Af Amer 81, Est GFR (MDRD) Non-Af 67, BUN/Creatinine Ratio 15.4, Glucose 132 H, Calcium 9.0 08/13/22 06:21: POC Glucose 131 H 08/13/22 11:45: POC Glucose 206 H Micro: Microbiology 08/12/22 04:53 Wound - Left Foot Gram Stain - Final 08/12/22 04:53 Wound - Left Foot Wound Culture - Preliminary Staphylococcus aureus GNR Poss Pseudomonas sp 08/12/22 02:50 Urine, Clean Catch Urine Culture - Final Mixed Gram Positive Organisms 08/12/22 02:40 Urine, Clean Catch Legionella Antigen - Final 08/12/22 02:40 Urine, Clean Catch Streptococcus pneumoniae Antigen (M - Final 08/12/22 02:30 Nasal Secretion SARS-CoV-2 & FLU Antigen (Rapid) - Final Physical Exam Narrative General: Alert, Oriented x3, Cooperative, No apparent distress HEENT: Atraumatic, PERRLA, EOMI, Normocephalic Oral: Moist Mucosa Neck: Supple, No JVD Lungs: Diminished, normal air movement, No rhonchi, No wheeze, No rales Cardiovascular: Regular rate, Regular Rhythm, Normal S1, Normal S2, No murmurs Abdomen: Soft, Non Tender, Non-Distended, No Hepato-splenomegaly Extremities: No edema, Capillary Refill Less than 3 Seconds Skin: No rashes, No breakdown Musculoskeletal: No Tenderness to Palpation of Joints or Extremities Neurological: Cranial nerves II-XII grossly intact, Motor Exam 5/5 strength throughout, Sensory exam intact to light touch and pain Psych/Mental Status: Normal Affect, Appropriate Assessment & Plan Assessment/Plan (1) Pneumonia: (2) Ulcer of left heel: (3) Diabetes mellitus: QUALIFIERS: Diabetes mellitus type: type 2 Diabetes mellitus intermodal dispatcher insulin use: with fdc use Diabetes mellitus complication status: with other specified complication Qualified Code(s): E11.69 - Type 2 diabetes mellitus with other specified complication; Z79.4 - skilled nursing (current) use of insulin PLAN: Plan 1. Aspiration pneumonia with chronic respiratory failure/mucous plug/left heel ulcer/possible serotonin syndrome from Seroquel ? We will discontinue vancomycin, but can continue with Zosyn for now ? Counseled on his oxygen requirement is down to 2 L nasal cannula ? Can likely plan for discharge to SNF with no antibiotics at this time ? It does appear that his reaction could be due to his Seroquel dosing, will discontinue here and on discharge culture of his left heel is pending, MRSA PCR is negative 2. Chronic diastolic CHF/coronary artery disease/peripheral artery disease status post stent HTN/HLD ? Blood pressure stable ? Resume his home medications 3. DM2 ? He is euglycemic, he does take insulin at home ? Accu-Cheks AC at bedtime ? Sliding scale insulin, will monitor and make adjustments as necessary DVT: SCDs Charges/Coding Visit Charges Inpatient E&M: 79474 Subs Hosp L2
--- NOTE | 2022-08-13 14:55 | CASEMGMT ---
Discharge Engineering Lab Technician Maria De Jesus reached out from [place]. Maria De Jesus needs PT/OT notes to be able to start pre-cert. Notes were uploaded to [facility] and pre-cert is being started now. Plan: [facility] pre-cert. Madhuri Morgan Discharge Engineering Lab Technician
[2022-08-13 17:35] LABS: Bedside Glucose 173 mg/dL (74-106)
[2022-08-13] MEDS: Insulin Lispro 100 UNIT/ML INSULN.PEN SC ×2 (17:39→20:35)
--- NOTE | 2022-08-13 17:56 | NURSING ---
pt states does not want to go to [facility] now-since only getting PT 2 times a wk there would rather go home then and do the PT 2 times a wk at home.
[2022-08-13 18:12] LABS: Vancomycin, Trough Level 20.1 ug/mL (5.0-15.0)
--- NOTE | 2022-08-13 18:48 | CPS ---
Pt refused to BiPAP for the night and also refused Vest therapy d/t nausea
[2022-08-13] MEDS: Spironolactone 25 MG Tablet PO (20:37)
[2022-08-13] MEDS: Atorvastatin Calcium 80 MG Tablet PO (20:38)
[2022-08-13 21:31] LABS: Bedside Glucose 194 mg/dL (74-106)
[2022-08-14] VITALS (8 sets, daily range): BP systolic 148–199; BP diastolic 79–100; PULSE 78–87; RESP 18; TEMP 36.7–37.2; O2SAT 96–98
[2022-08-14] MEDS: Acetaminophen 325 MG Tablet 650 MG PO (00:05)
[2022-08-14] MEDS: Insulin Lispro 100 UNIT/ML INSULN.PEN SC ×2 (05:32→11:22)
[2022-08-14] MEDS: busPIRone 15 MG TABLET PO ×2 (05:33→14:14)
[2022-08-14] MEDS: Metoclopramide 5 MG TABLET PO ×2 (05:33→14:14)
[2022-08-14 06:02] LABS: Absolute Lymphocyte Count 1.58 X10^3/uL (0.83-4.51); Absolute Neutrophil Count 6.1 X10^3/uL (2.0-7.7); Basophil# 0.03 X10^3/uL; Basophil% 0.3 % (0-1); Eosinophil# 0.04 X10^3/uL; Eosinophils% 0.4 % (0-5); Hematocrit 38.6 % (40-54); Lymphocyte # 1.58 X10^3/ul (0.83-4.51); Lymphocyte % 17.7 % (19-41); Mean Corp Hgb Conc 31.1 g/dL (32-36); Mean Corpuscular Hgb 27.4 pg (27.0-32.0); Mean Corpuscular Volume 88.1 fL (80-94); Mean Platelet Vol. 11.1 fl (6.2-12.0); Monocyte# 1.16 X10^3/uL; NRBC Flagged by Analyzer 0 % (0-5); Neutrophil # 6.08 X10^3/uL (2.7-7.7); Neutrophil % 68.2 % (47-70); Platelet Count 205 K/mm3 (150-450); RBC Distribution Width CV 13.7 % (11.6-14.6); RBC Distribution Width SD 44.2 fl (35.1-43.9); Red Blood Count 4.38 M/mm3 (4.6-6.2); White Blood Count 8.9 K/mm3 (4.4-11.0)
[2022-08-14 06:06] LABS: Bedside Glucose 175 mg/dL (74-106)
[2022-08-14 06:29] LABS: Anion Gap 5 (5-15); BUN 13 mg/dL (7-18); BUN/Creat Ratio 11.1 RATIO (10-20); Calcium,Total 9.4 mg/dL (8.5-10.1); Chloride 104 mmol/L (98-107); Creatinine, Serum 1.17 mg/dL (0.70-1.30); EST Glomerular Filtration Rate 67 mL/min (>60); Est Glom Filt Rate - Afr Amer 81 mL/min (>60); Estimated Creatinine Clearance 66.73 ml/min; Glucose 179 mg/dL (74-106); Potassium 3.9 mmol/L (3.5-5.1); Sodium Level 142 mmol/L (136-145)
[2022-08-14] MEDS: Ipratropium/Albuterol Sulfate 3 ML AMPUL.NEB INHALATION (07:17)
--- NOTE | 2022-08-14 07:21 | CPS ---
Pt declined Vest Therapy @this time.
--- NOTE | 2022-08-14 08:12 | PCM.PN.INT ---
Assessment & Plan Assessment/Plan (1) Aspiration pneumonia: QUALIFIERS: Aspiration pneumonia type: due to gastric secretions (2) Gastroparesis: (3) Chronic respiratory failure with hypoxia: PLAN: Plan RECOMMENDATIONS: 1. Discontinue Seroquel 2. Likely okay to discontinue antibiotics 3. Continue Acapella for pulmonary toileting 4. Scheduled bronchodilators 5. Potential discharge today. Patient can follow-up in office as previously scheduled. No 2-week follow-up required with NOXIOUS WEEDS AND PEST INSPECTOR 6. We will sign off from a pulmonary perspective IMPRESSIONS: 1. Exacerbation of chronic hypoxic respiratory failure secondary to serotonin syndrome Patient does have a history of aspiration pneumonia in the past. Patient with rapid resolution of symptomatology overnight. It is unlikely that this is related to an aspiration event and may have represented atelectasis. Some concern for serotonin syndrome leading to fever, sweats and decreased mental status. Patient should discontinue Seroquel. Patient back on his baseline oxygen. Patient should follow-up per routine. No indication for antibiotics or steroid burst in my opinion. Resume normal baseline respiratory plan 2. Chronic left heel ulcer secondary to diabetes mellitus and peripheral vascular disease Culture was taken in the emergency department. Okay to reinitiate baseline medications. Continue wound care Accu-Cheks will be sufficient. 3. Congestive heart failure/coronary artery disease/PAD/lethargy/obesity Complicates care, management, recovery and prognosis. Patient did have an echocardiogram in 2020 showing preserved ejection fraction. Patient does not appear to be clinically overloaded in my opinion. Likely not necessary to increase diuretics from my perspective. Okay to continue with baseline medications. Would not recommend Seroquel moving forward. Subjective Subjective Patient did well overnight. Patient stayed overnight secondary to possible placement in an ECF. Patient did not report any repeat diaphoresis, worsening oxygenation or increased productive cough. Patient is denying any current chest pain. Patient does state that he does not wish to go to the ECF any longer and wants to go home Objective Data Objective Data Vital Signs: Vital Signs Temp Pulse Resp BP Pulse Ox O2 Del Method O2 Flow Rate 36.7 C 78 18 158/98 H 96 Nasal Cannula 2 08/14/22 03:10 08/14/22 07:17 08/14/22 07:17 08/14/22 03:10 08/14/22 07:17 08/14/22 07:17 08/14/22 07:17 Oxygen Flow Rate (L/min) 2 Oxygen Delivery Method Nasal Cannula Weight: 127.9 kg Body Mass Index (BMI) 40.4 Intake & Output: Intake and Output for Last 24 Hours 08/12/22 08/13/22 08/14/22 23:59 23:59 23:59 Intake Total 940 / 940 425 / 425 50 / 50 Output Total 300 / 300 1250 / 1250 400 / 400 Balance 640 / 640 -825 / -825 -350 / -350 Lab / Micro Data Attestation: I reviewed the patient's lab results. Result Diagrams: 08/14/22 05:35 08/14/22 05:35 Labs: Laboratory Results - last 24 hr 08/13/22 11:45: POC Glucose 206 H 08/13/22 17:14: POC Glucose 173 H 08/13/22 17:30: Vancomycin Trough 20.1 H 08/13/22 20:33: POC Glucose 194 H 08/14/22 05:31: POC Glucose 175 H 08/14/22 05:35: WBC 8.9, RBC 4.38 L, Hgb 12.0 L, Hct 38.6 L, MCV 88.1, MCH 27.4, MCHC 31.1 L, RDW Std Deviation 44.2 H, RDW Coeff of James 13.7, Plt Count 205, MPV 11.1, Immature Gran % (Auto) 0.400, Neut % (Auto) 68.2, Lymph % (Auto) 17.7 L, [place] % (Auto) 13.0 H, Eos % (Auto) 0.4, Baso % (Auto) 0.3, Absolute Neuts (auto) 6.1, Absolute Lymphs (auto) 1.58, Nucleated RBC % 0 08/14/22 05:35: Sodium 142, Potassium 3.9, Chloride 104, Carbon Dioxide 33.0 H, Anion Gap 5, BUN 13, Creatinine 1.17, Estim Creat Clear Calc 66.73, Est GFR (MDRD) Af Amer 81, Est GFR (MDRD) Non-Af 67, BUN/Creatinine Ratio 11.1, Glucose 179 H, Calcium 9.4 Micro: Microbiology 08/12/22 04:53 Wound - Left Foot Gram Stain - Final 08/12/22 04:53 Wound - Left Foot Wound Culture - Preliminary Staphylococcus aureus GNR Poss Pseudomonas sp 08/12/22 02:50 Urine, Clean Catch Urine Culture - Final Mixed Gram Positive Organisms 08/12/22 02:40 Urine, Clean Catch Legionella Antigen - Final 08/12/22 02:40 Urine, Clean Catch Streptococcus pneumoniae Antigen (M - Final 08/12/22 02:30 Nasal Secretion SARS-CoV-2 & FLU Antigen (Rapid) - Final Physical Exam Const alert, oriented x3 and no apparent distress Constitutional Narrative: Not diaphoretic at all General Appearance: cooperative and well developed HEENT normocephalic, head/scalp atraumatic and oropharynx normal Eyes PERRL, EOMs intact bilaterally, conjunctivae normal and no scleral icterus Neck no lymphadenopathy, supple and no JVD General: trachea midline Resp normal respiratory effort and no use of accessory muscles Resp Narrative: On 2.5L of oxygen by nasal canula, which is his baseline Auscultation: diminished lung sounds; Negative for rales, rhonchi or wheezes Percussion: Negative for dullness Cardio regular rate, regular rhythm, S1 normal heart sound, S2 normal heart sound, no murmurs, no rub, no gallops, no JVD and peripheral pulses 2+ throughout GI normal to inspection, nondistended, normoactive bowel sounds, soft to palpation, non-tender and non-distended Extremity normal to inspection, full ROM, normal capillary refill and no clubbing, cyanosis or edema Skin Lesions: no lesions Rashes: no rashes Neuro oriented x3, moves all extremities, no focal motor deficits and no sensory deficits noted Psych cooperative and affect normal Charges/Coding Visit Charges Inpatient E&M: 52269 Subs Hosp L2
--- NOTE | 2022-08-14 08:34 | CASEMGMT ---
Social Work SW informed by nurse, Clara, that pt has concerns about going to [facility] regarding limited PT/OT 2 days a week. Nurse Clara reports not sure where pt got this information. SW placed called to Maria De Jesus at [facility] to discuss and review PT/OT routines. SW left message for Maria De Jesus and will speak with pt once there is clarification on this matter. MINISTERIO eKnnedy
--- NOTE | 2022-08-14 09:07 | WOUNDNOTE ---
wound photo: left heel
[2022-08-14] MEDS: Carvedilol 12.5 MG Tablet PO (09:13)
[2022-08-14] MEDS: Clopidogrel Bisulfate 75 MG Tablet PO (09:13)
[2022-08-14] MEDS: amLODIPine 5 MG Tablet PO (09:13)
[2022-08-14] MEDS: Losartan Potassium 50 MG Tablet PO (09:13)
[2022-08-14] MEDS: Loratadine 10 MG Tablet PO (09:14)
[2022-08-14] MEDS: guaiFENesin 1,200 MG Tablet 1200 MG PO (09:14)
[2022-08-14] MEDS: Isosorbide Mononitrate 30 MG Tablet PO (09:14)
[2022-08-14] MEDS: Aspirin E.C. 81 MG Tablet PO (09:14)
[2022-08-14] MEDS: FLUoxetine 20 MG Capsule 60 MG PO (09:15)
[2022-08-14] MEDS: Nystatin Powder 15gm Bottle 1 APPLIC TOPICAL (09:15)
[2022-08-14] MEDS: Finasteride 5 MG Tablet PO (09:15)
--- NOTE | 2022-08-14 10:17 | DCINST_ITS ---
Discharge Instructions Diet Discharge Diet: Low fat / Low cholesterol, Swallowing Precautions (Minced and moist textures with 4-5 smaller meals per day, small bites, small sips remain sitting upright for 30 minutes after p.o. intake), Carb Control Diet and - (Mechanical soft textures and thin liquids) Activity Discharge Activity: Return to Normal Activity Dressing / Incision Call your doctor if you observe: Fever of 101 or Higher, Shortness of breath, Dizziness, Fainting spells, Swelling in the ankles, Chest pain and Increased palpitations (irregular heartbeat) Follow Up Care Test Results: Test results from this visit will be discussed in further detail at your follow- up appointment, if applicable. Discharge Plan Admission Admit Date/Time: 08/12/22 05:07 Attending Provider: Gabe Mathew Primary Care Provider: Doretha Brown Consulting Providers: Jean-Claude Randall ; Rosendo Foreman Discharge Orders/Prescriptions Prescriptions: New amoxicillin-pot clavulanate 875-125 mg tablet 1 tab PO BID 4 Days Qty: 8 0RF Continued aspirin [Adult Aspirin Regimen] 81 mg tablet,delayed release (DR/EC) 81 mg PO DAILY atorvastatin 80 mg tablet 80 mg PO QHS Qty: 90 2RF furosemide 40 mg tablet 40 mg PO DAILY Qty: 90 3RF finasteride 5 mg tablet 5 mg PO DAILY Qty: 90 3RF pantoprazole 20 mg tablet,delayed release (DR/EC) 20 mg PO DAILY albuterol sulfate 90 mcg/actuation HFA aerosol inhaler 2 puff inhalation Q4H PRN (Reason: shortness of breath or wheezing) Qty: 8.5 3RF Rx Instructions: administer with spacer carvedilol 12.5 mg tablet 12.5 mg PO BID Qty: 180 3RF loratadine [Allergy Relief (loratadine)] 10 mg tablet 10 mg PO DAILY (DME) Ultra-Light Rollator Misc See Rx Instructions .Route Qty: 1 2RF Rx Instructions: As directed acetaminophen 500 MG tablet 1,000 mg PO QHS PRN PRN (Reason: Pain 1-10 Or Fever) spironolactone 25 mg tablet 25 mg PO QHS Artificial Tears(br-[id number]) 1-0.2-0.2 % Drops 2 drp EACH EYE Q1H PRN (Reason: DRY EYES) Qty: 0 0RF losartan 50 mg tablet 50 mg PO DAILY amlodipine 5 mg tablet 5 mg PO DAILY clonazepam 1 mg Tablet 1 mg PO BID PRN PRN (Reason: anxiety) Qty: 14 0RF nystatin [Nyamyc] 100,000 unit/gram Powder 1 applic topical BID Qty: 0 0RF Protocol: *Topical Application Instructions APPLICATION INSTRUCTIONS: to groin fluoxetine 20 mg Capsule 60 mg PO DAILY Qty: 0 0RF buspirone 7.5 mg tablet 15 mg PO TID Qty: 90 2RF (DME) gauze bandage [Bordered Gauze] 4 X 4 bandage See Rx Instructions .ROUTE .MEDSUPPLY Qty: 14 2RF Rx Instructions: Daily cleanse left foot wound with soap and water, dry and apply Betadine solution and apply clean dressing pregabalin [Lyrica] 75 mg capsule 75 mg PO BID insulin lispro 100 unit/mL insulin pen subcut ACHS Label Comments: INJECT subcuaneously 8-16 units 5 (FIVE) times daily per sliding scale.] nitroglycerin 0.4 mg tablet, sublingual 0.4 mg SL Q5M PRN (Reason: Chest Pain) Qty: 30 0RF clopidogrel 75 mg tablet 75 mg PO DAILY Qty: 90 3RF isosorbide mononitrate 30 mg tablet extended release 24 hr 30 mg PO DAILY Qty: 90 3RF insulin detemir U-100 100 unit/mL (3 mL) insulin pen 44 unit subcut QHS Qty: 15 1RF metoclopramide HCl 5 mg tablet 5 mg PO TID Qty: 90 2RF Discontinued quetiapine [Seroquel] 50 mg Tablet 50 mg PO QHS Referrals / Follow Up: Doretha Brown MD [Primary Care Provider] - Within 1 Week Disposition Disposition (needs filled in before D/C Order can be placed): Home, Self Care
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
[2022-08-14 11:45] LABS: Bedside Glucose 204 mg/dL (74-106)
--- NOTE | 2022-08-14 13:05 | CASEMGMT ---
Discharge Server Assistant [place] reached out. Pre-cert has been obtained. R[place] Chery notified. Plan: [place] Morgan Discharge Server Assistant
--- NOTE | 2022-08-14 13:07 | TREXTCAR_ITS ---
Diet Diet Order/Speech Therapy: 08/13/22 09:18 Diet: Carbohydrate Controlled Food consistency:: Mechanical (Minced/Moist) Liquid Consistency:: Regular/Thin Is pt able to select menu?: No Diet Comments: Distant supervision, GERD precautions Routine Orders/Code Status Routine Lab Work: CBC and BMP Code Status: Full Code Wound(s) lt foot: Wound Type: Neuropathic/Diabetic Foot Ulcer left plantar heel: Wound Type: Neuropathic/Diabetic Foot Ulcer Dressing Change: Promogran Therapies Physical Therapy: Eval and Treat Occupational Therapy: Eval and Treat Speech Therapy: Eval and Treat Problem/Diagnosis (1) Aspiration pneumonia: Status: Chronic Code(s): J69.0 - Pneumonitis due to inhalation of food and vomit (2) Gastroparesis: Status: Acute Code(s): K31.84 - Gastroparesis (3) Chronic respiratory failure with hypoxia: Status: Chronic Code(s): J96.11 - Chronic respiratory failure with hypoxia Plan 1. Aspiration pneumonia with chronic respiratory failure/mucous plug/left heel ulcer/possible serotonin syndrome from Seroquel ? We will discontinue vancomycin, but can continue with Zosyn for now ? Counseled on his oxygen requirement is down to 2 L nasal cannula ? Can likely plan for discharge to SNF with no antibiotics at this time ? It does appear that his reaction could be due to his Seroquel dosing, will discontinue here and on discharge culture of his left heel is pending, MRSA PCR is negative 2. Chronic diastolic CHF/coronary artery disease/peripheral artery disease status post stent HTN/HLD ? Blood pressure stable ? Resume his home medications 3. DM2 ? He is euglycemic, he does take insulin at home ? Accu-Cheks AC at bedtime ? Sliding scale insulin, will monitor and make adjustments as necessary DVT: SCDs Allergies/Procedures Done in Hospital Allergies allopurinol Adverse Reaction (Verified 08/12/22 02:14) Vomiting Influenza Virus Vaccines Adverse Reaction (Verified 08/12/22 02:14) Vomiting pneumococcal vaccine Adverse Reaction (Verified 08/12/22 02:14) Vomiting Procedures: None Type of Care/Length of Stay Estimated LOS: Convalescent Care Less Than 30 days Type of Care Needed: Skilled Rehab Potential: Good Prognosis: Good Additional Orders/Day of Discharge Day of Discharge: 08/14/22 Dietary and Speech Recommendations Dietitian Recommendations/Changes: cardiac, 1800 calorie controlled diet when medically appropriate- texture/consistency per POSTAL SERVICE WINDOW CLERK Discharge Plan Admission Admit Date/Time: 08/12/22 05:07 Attending Provider: Gabe Mathew Primary Care Provider: Doretha Brown Consulting Providers: Jean-Claude Randall ; Rosendo Foreman Discharge Orders/Prescriptions Prescriptions: New amoxicillin-pot clavulanate 875-125 mg tablet 1 tab PO BID 4 Days Qty: 8 0RF carvedilol 12.5 mg Tablet 25 mg PO BID Qty: 0 0RF amlodipine 5 mg Tablet 10 mg PO DAILY Qty: 0 0RF Continued aspirin [Adult Aspirin Regimen] 81 mg tablet,delayed release (DR/EC) 81 mg PO DAILY atorvastatin 80 mg tablet 80 mg PO QHS Qty: 90 2RF furosemide 40 mg tablet 40 mg PO DAILY Qty: 90 3RF finasteride 5 mg tablet 5 mg PO DAILY Qty: 90 3RF pantoprazole 20 mg tablet,delayed release (DR/EC) 20 mg PO DAILY albuterol sulfate 90 mcg/actuation HFA aerosol inhaler 2 puff inhalation Q4H PRN (Reason: shortness of breath or wheezing) Qty: 8.5 3RF Rx Instructions: administer with spacer carvedilol 12.5 mg tablet 12.5 mg PO BID Qty: 180 3RF loratadine [Allergy Relief (loratadine)] 10 mg tablet 10 mg PO DAILY (DME) Ultra-Light Rollator Misc See Rx Instructions .Route Qty: 1 2RF Rx Instructions: As directed acetaminophen 500 MG tablet 1,000 mg PO QHS PRN PRN (Reason: Pain 1-10 Or Fever) spironolactone 25 mg tablet 25 mg PO QHS Artificial Tears(uu-koeq-kosp) 1-0.2-0.2 % Drops 2 drp EACH EYE Q1H PRN (Reason: DRY EYES) Qty: 0 0RF losartan 50 mg tablet 50 mg PO DAILY amlodipine 5 mg tablet 5 mg PO DAILY clonazepam 1 mg Tablet 1 mg PO BID PRN PRN (Reason: anxiety) Qty: 14 0RF nystatin [Nyamyc] 100,000 unit/gram Powder 1 applic topical BID Qty: 0 0RF Protocol: *Topical Application Instructions APPLICATION INSTRUCTIONS: to groin fluoxetine 20 mg Capsule 60 mg PO DAILY Qty: 0 0RF buspirone 7.5 mg tablet 15 mg PO TID Qty: 90 2RF (DME) gauze bandage [Bordered Gauze] 4 X 4 bandage See Rx Instructions .ROUTE .MEDSUPPLY Qty: 14 2RF Rx Instructions: Daily cleanse left foot wound with soap and water, dry and apply Betadine solution and apply clean dressing pregabalin [Lyrica] 75 mg capsule 75 mg PO BID insulin lispro 100 unit/mL insulin pen subcut ACHS Label Comments: INJECT subcuaneously 8-16 units 5 (FIVE) times daily per sliding scale.] nitroglycerin 0.4 mg tablet, sublingual 0.4 mg SL Q5M PRN (Reason: Chest Pain) Qty: 30 0RF clopidogrel 75 mg tablet 75 mg PO DAILY Qty: 90 3RF isosorbide mononitrate 30 mg tablet extended release 24 hr 30 mg PO DAILY Qty: 90 3RF insulin detemir U-100 100 unit/mL (3 mL) insulin pen 44 unit subcut QHS Qty: 15 1RF metoclopramide HCl 5 mg tablet 5 mg PO TID Qty: 90 2RF Discontinued quetiapine [Seroquel] 50 mg Tablet 50 mg PO QHS Referrals / Follow Up: Doretha Brown MD [Primary Care Provider] - Within 1 Week Disposition Disposition (needs filled in before D/C Order can be placed): Custodial Facility (1) Aspiration pneumonia Qualifiers: Aspiration pneumonia type: due to gastric secretions
--- NOTE | 2022-08-14 13:24 | DS.PCM_ITS ---
Providers Date of Admission: 08/12/22 Primary Care Physician: Dr. Doretha Brown MD Consultations 08/12/22 06:02 Consult: Java Analyst / Pulmonary Medicine Routine Consulting Provider: Rosendo Foreman Reason for Consult: mucus plug EMERGENT Consult: No MD Notified: Yes Date Notified: 08/12/22 Time Notified: 08:14 Method of Notification: Text 08/13/22 09:24 Consult: Onc/Wound/geoscience specialist Routine Comment: Reason for Consult:: lt heel wound Reason For Visit: PNEUMONIA Diagnosis Discharge Diagnosis (1) Aspiration pneumonia: Status: Chronic Code(s): J69.0 - Pneumonitis due to inhalation of food and vomit Qualifiers: Aspiration pneumonia type: due to gastric secretions (2) Gastroparesis: Status: Acute Code(s): K31.84 - Gastroparesis (3) Chronic respiratory failure with hypoxia: Status: Chronic Code(s): J96.11 - Chronic respiratory failure with hypoxia Plan 1. Aspiration pneumonia with chronic respiratory failure/mucous plug/left heel ulcer/possible serotonin syndrome from Seroquel ? We will discontinue vancomycin, but can continue with Zosyn for now ? Counseled on his oxygen requirement is down to 2 L nasal cannula ? Can likely plan for discharge to SNF with no antibiotics at this time ? It does appear that his reaction could be due to his Seroquel dosing, will discontinue here and on discharge culture of his left heel is pending, MRSA PCR is negative 2. Chronic diastolic CHF/coronary artery disease/peripheral artery disease status post stent HTN/HLD ? Blood pressure stable ? Resume his home medications 3. DM2 ? He is euglycemic, he does take insulin at home ? Accu-Cheks AC at bedtime ? Sliding scale insulin, will monitor and make adjustments as necessary DVT: SCDs Medications at Discharge Home Medications acetaminophen 500 mg tablet 1,000 mg PO QHS PRN PRN Pain 1-10 Or Fever 02/11/21 aspirin 81 mg tablet,delayed release (Adult Aspirin Regimen) 81 mg PO DAILY heart health 11/05/21 spironolactone 25 mg tablet 25 mg PO QHS diuretic 11/08/21 peg [id number] 1 %-0.2 %-0.2 % eye drops (Artificial Tears (pg [id number])) 2 drp EACH EYE Q1H PRN DRY EYES #0 mL 11/14/21 nitroglycerin 0.4 mg sublingual tablet 0.4 mg sublingual Q5M PRN Chest Pain #30 tabs 11/25/21 atorvastatin 80 mg tablet 80 mg PO QHS cholesterol #90 tabs 01/09/22 finasteride 5 mg tablet 5 mg PO DAILY prostate #90 tabs 01/09/22 furosemide 40 mg tablet 40 mg PO DAILY fluid #90 tabs 01/09/22 albuterol sulfate 90 mcg/actuation aerosol inhaler 2 puff inhalation Q4H PRN shortness of breath or wheezing #8.5 grams 02/04/22 pantoprazole 20 mg tablet,delayed release 20 mg PO DAILY gerd 02/04/22 carvedilol 12.5 mg tablet 12.5 mg PO BID heart #180 tabs 02/05/22 losartan 50 mg tablet 50 mg PO DAILY bp 03/21/22 clopidogrel 75 mg tablet 75 mg PO DAILY blood thinner #90 tabs 03/30/22 isosorbide mononitrate 30 mg tablet,extended release 24 hr 30 mg PO DAILY heart #90 tabs 03/30/22 amlodipine 5 mg tablet 5 mg PO DAILY bp 05/21/22 loratadine 10 mg tablet (Allergy Relief (loratadine)) 10 mg PO DAILY allergies 05/21/22 insulin detemir U-100 100 unit/mL (3 mL) subcutaneous pen 44 unit (0.44 mL) subcut QHS dm #15 mL 05/26/22 buspirone 7.5 mg tablet 15 mg PO TID mood #90 tabs 07/03/22 clonazepam 1 mg tablet 1 mg PO BID PRN PRN anxiety #14 tabs 07/03/22 fluoxetine 20 mg capsule 60 mg PO DAILY #0 caps 07/03/22 gauze bandage 4 X 4 (Bordered Gauze) #14 ea 07/03/22 nystatin 100,000 unit/gram topical powder (Nyamyc) 1 applic topical BID #0 grams 07/03/22 walker (Ultra-Light Rollator mis) #1 ea 07/21/22 metoclopramide HCl 5 mg tablet 5 mg PO TID #90 tabs 07/31/22 insulin lispro 100 unit/mL subcutaneous pen sliding scale dose subcut ACHS Check with primary doctor 08/12/22 pregabalin 75 mg capsule (Lyrica) 75 mg PO BID Check with primary doctor 08/12/22 amlodipine 5 mg tablet 10 mg PO DAILY #0 tabs 08/14/22 amoxicillin 875 mg-potassium clavulanate 125 mg tablet 1 tab PO BID 4 days #8 tabs 08/14/22 carvedilol 12.5 mg tablet 25 mg PO BID #0 tabs 08/14/22 Hospital Course Operations None Procedures None Summary of Care Provided Minutes Spent on Discharge: 423 Hospital Course: Per HPI: REA HANNA, is a 62 M with a significant history of diabetes mellitus; COPD; congestive heart failure; CAD status post stents; recurrent aspiration pneumonia; congenital underdevelopment of right lung; and home? 4 L nasal cannula oxygen who presents to emergency department with a fever.? Reportedly his temperature at home was 100.3 Fahrenheit.? Associated with symptom is chills and rigors.? His symptoms started few hours before presentation. At baseline patient has a productive cough of white sputum.? However, the color? of his sputum has changed. His sputum now is multicolored. The patient has an ulcer at his left heel.? The patient's thinks that the ulcer has shrunk in size.? Emergency department ethanol saw patient on this presentation reports seeing patient recently and stated that the color of patien t wound has changed Hospital Course: 1.? Aspiration pneumonia with chronic respiratory failure/mucous plug/left heel ulcer/possible serotonin syndrome from Seroquel ?Currently on Zosyn, can transition to Augmentin for 4 more days as an outpatient for 5 days total treatment ? Counseled on his oxygen requirement is down to 2 L nasal cannula ? Can likely plan for discharge to SNF with no antibiotics at this time ? It does appear that his reaction could be due to his Seroquel dosing, will discontinue here and on discharge ? Culture of his left heel is pending, MRSA PCR is negative it does not appear infected at this time. Would recommend calling the hospital in a day or 2 to obtain finalized cultures just in case it does become infected oral antibiotics could be continued at SNF. ? I discussed with him the plan for discharge today he expressed understanding of the risk benefits of going to SNF and is okay with going to SNF today. Initially he was demanding to go home however we discussed with him that that would be an unsafe discharge and he relented. Continue with wound care at home. 2.? Chronic diastolic CHF/coronary artery disease/peripheral artery disease status post stent HTN/HLD ?Blood pressures have been rising while here, and today he was 190 systolic ? On discharge will increase his Norvasc to 10 and his Coreg to 25 mg p.o.twice daily also while here it was noted that he was not getting his Lasix so he will be given a dose of his oral Lasix prior to discharge as well. 3.? DM2 ? He is euglycemic, he does take insulin at home ? Accu-Cheks AC at bedtime ? Sliding scale insulin, will monitor and make adjustments as necessary Physical Exam Narrative General: Alert, Oriented x3, Cooperative, No apparent distress HEENT: Atraumatic, PERRLA, EOMI, Normocephalic Oral: Moist Mucosa Neck: Supple, No JVD Lungs: Diminished, normal air movement, No rhonchi, No wheeze, No rales Cardiovascular: Regular rate, Regular Rhythm, Normal S1, Normal S2, No murmurs Abdomen: Soft, Non Tender, Non-Distended, No Hepato-splenomegaly Extremities: No edema, Capillary Refill Less than 3 Seconds Skin: Left heel ulcer Musculoskeletal: No Tenderness to Palpation of Joints or Extremities Neurological: Cranial nerves II-XII grossly intact, Motor Exam 5/5 strength throughout, Sensory exam intact to light touch and pain Psych/Mental Status: Normal Affect, Appropriate Weight / BMI Weight Weight: 281 lb 15.539 oz Body Mass Index (BMI) 40.4 ABG / Lab / Microbiology Data Result Diagrams: 08/14/22 05:35 08/14/22 05:35 Laboratory: Laboratory Results - last 24 hr 08/13/22 17:14: POC Glucose 173 H 08/13/22 17:30: Vancomycin Trough 20.1 H 08/13/22 20:33: POC Glucose 194 H 08/14/22 05:31: POC Glucose 175 H 08/14/22 05:35: WBC 8.9, RBC 4.38 L, Hgb 12.0 L, Hct 38.6 L, MCV 88.1, MCH 27.4, MCHC 31.1 L, RDW Std Deviation 44.2 H, RDW Coeff of James 13.7, Plt Count 205, MPV 11.1, Immature Gran % (Auto) 0.400, Neut % (Auto) 68.2, Lymph % (Auto) 17.7 L, Castro % (Auto) 13.0 H, Eos % (Auto) 0.4, Baso % (Auto) 0.3, Absolute Neuts (auto) 6.1, Absolute Lymphs (auto) 1.58, Nucleated RBC % 0 08/14/22 05:35: Sodium 142, Potassium 3.9, Chloride 104, Carbon Dioxide 33.0 H, Anion Gap 5, BUN 13, Creatinine 1.17, Estim Creat Clear Calc 66.73, Est GFR (MDRD) Af Amer 81, Est GFR (MDRD) Non-Af 67, BUN/Creatinine Ratio 11.1, Glucose 179 H, Calcium 9.4 08/14/22 11:21: POC Glucose 204 H Microbiology: Microbiology 08/12/22 04:53 Wound - Left Foot Gram Stain - Final 08/12/22 04:53 Wound - Left Foot Wound Culture - Preliminary Staphylococcus aureus GNR Poss Pseudomonas sp 08/12/22 02:50 Urine, Clean Catch Urine Culture - Final Mixed Gram Positive Organisms 08/12/22 02:40 Urine, Clean Catch Legionella Antigen - Final 08/12/22 02:40 Urine, Clean Catch Streptococcus pneumoniae Antigen (M - Final 08/12/22 02:30 Nasal Secretion SARS-CoV-2 & FLU Antigen (Rapid) - Final D/C Instructions Discharge Diet: Low fat / Low cholesterol, Swallowing Precautions (Minced and moist textures with 4-5 smaller meals per day, small bites, small sips remain sitting upright for 30 minutes after p.o. intake), Carb Control Diet and - (Mechanical soft textures and thin liquids) Call your doctor if you observe: Fever of 101 or Higher, Shortness of breath, Dizziness, Fainting spells, Swelling in the ankles, Chest pain and Increased palpitations (irregular heartbeat) Meaningful Use Info Meaningful Use Diagnoses (Choose all that apply): None applicable Discharge Plan Admission Admit Date/Time: 08/12/22 05:07 Attending Provider: Gabe Mathew Primary Care Provider: Doretha Brown Consulting Providers: Jean-Claude Randall ; Rosendo Foreman Discharge Orders/Prescriptions Prescriptions: New amoxicillin-pot clavulanate 875-125 mg tablet 1 tab PO BID 4 Days Qty: 8 0RF carvedilol 12.5 mg Tablet 25 mg PO BID Qty: 0 0RF amlodipine 5 mg Tablet 10 mg PO DAILY Qty: 0 0RF Continued aspirin [Adult Aspirin Regimen] 81 mg tablet,delayed release (DR/EC) 81 mg PO DAILY atorvastatin 80 mg tablet 80 mg PO QHS Qty: 90 2RF furosemide 40 mg tablet 40 mg PO DAILY Qty: 90 3RF finasteride 5 mg tablet 5 mg PO DAILY Qty: 90 3RF pantoprazole 20 mg tablet,delayed release (DR/EC) 20 mg PO DAILY albuterol sulfate 90 mcg/actuation HFA aerosol inhaler 2 puff inhalation Q4H PRN (Reason: shortness of breath or wheezing) Qty: 8.5 3RF Rx Instructions: administer with spacer carvedilol 12.5 mg tablet 12.5 mg PO BID Qty: 180 3RF loratadine [Allergy Relief (loratadine)] 10 mg tablet 10 mg PO DAILY (DME) Ultra-Light Rollator Misc See Rx Instructions .Route Qty: 1 2RF Rx Instructions: As directed acetaminophen 500 MG tablet 1,000 mg PO QHS PRN PRN (Reason: Pain 1-10 Or Fever) spironolactone 25 mg tablet 25 mg PO QHS Artificial Tears([id number]) 1-0.2-0.2 % Drops 2 drp EACH EYE Q1H PRN (Reason: DRY EYES) Qty: 0 0RF losartan 50 mg tablet 50 mg PO DAILY amlodipine 5 mg tablet 5 mg PO DAILY clonazepam 1 mg Tablet 1 mg PO BID PRN PRN (Reason: anxiety) Qty: 14 0RF nystatin [Nyamyc] 100,000 unit/gram Powder 1 applic topical BID Qty: 0 0RF Protocol: *Topical Application Instructions APPLICATION INSTRUCTIONS: to groin fluoxetine 20 mg Capsule 60 mg PO DAILY Qty: 0 0RF buspirone 7.5 mg tablet 15 mg PO TID Qty: 90 2RF (DME) gauze bandage [Bordered Gauze] 4 X 4 bandage See Rx Instructions .ROUTE .MEDSUPPLY Qty: 14 2RF Rx Instructions: Daily cleanse left foot wound with soap and water, dry and apply Betadine solution and apply clean dressing pregabalin [Lyrica] 75 mg capsule 75 mg PO BID insulin lispro 100 unit/mL insulin pen subcut ACHS Label Comments: INJECT subcuaneously 8-16 units 5 (FIVE) times daily per sliding scale.] nitroglycerin 0.4 mg tablet, sublingual 0.4 mg SL Q5M PRN (Reason: Chest Pain) Qty: 30 0RF clopidogrel 75 mg tablet 75 mg PO DAILY Qty: 90 3RF isosorbide mononitrate 30 mg tablet extended release 24 hr 30 mg PO DAILY Qty: 90 3RF insulin detemir U-100 100 unit/mL (3 mL) insulin pen 44 unit subcut QHS Qty: 15 1RF metoclopramide HCl 5 mg tablet 5 mg PO TID Qty: 90 2RF Discontinued quetiapine [Seroquel] 50 mg Tablet 50 mg PO QHS Referrals / Follow Up: Doretha Brown MD [Primary Care Provider] - Within 1 Week Disposition Disposition (needs filled in before D/C Order can be placed): [facility] Charges/Coding Visit Charges Inpatient E&M: 16813 Disch Hosp
--- NOTE | 2022-08-14 13:25 | CASEMGMT ---
Discharge Exercise Physiology Professor Maria De Jesus from [facility] reached out to this auto service writer. Maria De Jesus stated patient had just called [place] and the patient is saying he will only stay till tomorrow morning and not any longer. Maria De Jesus has some concerns about compliant issues when patient would arrive to SNF. If patient is not willing to stay Maria De Jesus is wondering if the hospital can d/c him home. This auto service writer called [facility] and discussed Maria De Jesus concerns and Abigail will be following up. Maria De Jesus direct cell # is [phone]. Plan: Madhuri Morgan Discharge Exercise Physiology Professor
--- NOTE | 2022-08-14 13:56 | CPS ---
Declined vest therapy d/t nausea.
[2022-08-14] MEDS: Furosemide 40 MG Tablet PO (14:13)
--- NOTE | 2022-08-14 14:24 | CASEMGMT ---
Addendum entered by Miri Sellers 08/14/22 14:52: RICO set up wheelchair transportation through [employer] for 3:30pm. Notified pt and pt nurse of transport time. Pt declined this SW to call other family as SO, She in room and aware of d/c plan. RICO called Maria De Jesus at [facility] to notify of transport time and left message. RICO also made aware by d/c psychological assistant Madhuri, that fax number provided by Maria De Jesus to send HENS form to was incorrect. RICO faxed HENS 7000 convalescent form to new number ([phone]) provided by Maria De Jesus. Faxed negative covid result via [employer], placed copies on pt chart in and envelope on pt person. Disposition: [facility], convalescent, skilled level of care MINISTERIO Kennedy Addendum entered by Miri Sellers 08/14/22 14:34: RICO placed copies of discharge orders on pt chart and originals in discharge envelope that will go with pt. MINISTERIO Kennedy Original Note: Social Work This RICO and [facility] Abigail to pt room to get clarification on plans for staying at SNF upon hospital discharge. Pt in bed and SO, She in chair beside pt. Pt has called [place] several times and communication is becoming misunderstood. Social Workers called [place] [facility] while in pt room to discuss pt wishes. Pt reported he will stay for one week. To ensure everyone on same page RICO clarified the end date of pt stay at [facility] for 08/23 with pt and [place] rep. Pt agreeable to staying at [facility] for PT/OT until 08/23 and verbal expressed this at this time. Pt also stated would not leave [facility] before that date. This SW completed 7000 convalescent form in [employer] system. Faxed 7000 to Maria De Jesus at [facility] (fax #[phone]) as requested by Maria De Jesus before pt arrives at facility. RICO faxed 7000 HENS and all other discharge orders to Maria De Jesus via [employer] at this time and made aware covid pending but will be sent when finished. SW to set up transport following negative covid result. Disposition: [facility], convalescent, skilled level of care MINISTERIO Kennedy
--- NOTE | 2022-08-14 14:26 | NURSING ---
Pt sat up in chair this morning. Only able to tolerate 30min of sitting in chair. Pt encouraged to sit up longer but refused.
--- NOTE | 2022-08-14 15:22 | NURSING ---
Report given to Sheri Brink.
== END 2022-08-14 15:45 | disposition skilled nursing facility (03) | DRG 177 ==
LOC: ED 04:51 → MS3 05:53
PROVIDERS: Internal Medicine Critical Care Medicine; Admitting Provider Hospitalist; Emergency Provider Emergency Medicine; PCP Internal Medicine; Visit Provider Family Medicine
DX: J69.0 Pneumonitis due to inhalation of food and vomit (principal); Q33.6 Congenital hypoplasia and dysplasia of lung; J96.11 Chronic respiratory failure with hypoxia; I50.32 Chronic diastolic (congestive) heart failure; L97.429 Non-pressure chronic ulcer of left heel and midfoot with unspecified severity; Z68.41 Body mass index [BMI] 40.0-44.9, adult; E11.42 Type 2 diabetes mellitus with diabetic polyneuropathy; E11.51 Type 2 diabetes mellitus with diabetic peripheral angiopathy without gangrene; I11.0 Hypertensive heart disease with heart failure; J44.9 Chronic obstructive pulmonary disease, unspecified; Z79.4 Long term (current) use of insulin; Z89.421 Acquired absence of other right toe(s); E11.621 Type 2 diabetes mellitus with foot ulcer; E11.65 Type 2 diabetes mellitus with hyperglycemia; E11.43 Type 2 diabetes mellitus with diabetic autonomic (poly)neuropathy; F41.9 Anxiety disorder, unspecified; I25.10 Atherosclerotic heart disease of native coronary artery without angina pectoris; K21.9 Gastro-esophageal reflux disease without esophagitis; E78.00 Pure hypercholesterolemia, unspecified; I25.2 Old myocardial infarction; G47.30 Sleep apnea, unspecified; L30.4 Erythema intertrigo; K31.84 Gastroparesis; F32.A Depression, unspecified; Z87.01 Personal history of pneumonia (recurrent); Z87.442 Personal history of urinary calculi; Z99.81 Dependence on supplemental oxygen; Z79.82 Long term (current) use of aspirin; Z79.899 Other long term (current) drug therapy; Z95.5 Presence of coronary angioplasty implant and graft; R53.81 Other malaise; E66.9 Obesity, unspecified; T43.595A Adverse effect of other antipsychotics and neuroleptics, initial encounter
CPT/HCPCS: 36415; 36600; 71045; 71250; 80048; 80053; 80202; 81001; 82803; 82962; 83605; 85025; 85610; 85730; 87040; 87070; 87077; 87086; 87088; 87186; 87205; 87426; 87428; 87449; 87641; 92526; 92610; 93005; 94640; 94667; 94668; 94762; 97162; 97166; 97530; 97535; 99285; J7040; J7050; A4216; J2405

== ENCOUNTER 2022-08-26 13:00 | Outpatient (RCR) | payer MEDICARE, MEDICAID, SELFPAY ==
[2022-07-30 00:36] VITALS: BP 134/79; PULSE 77; RESP 22; TEMP 36.7; BMI 41.1
[2022-08-26 13:10] VITALS: BP 151/71; PULSE 76; RESP 22; TEMP 36.4; BMI 41.1
--- NOTE | 2022-08-26 16:41 | PCM.WC.PN ---
History of Present Illness Date of Service: 08/26/22 Chief Complaint: left foot ulcer History of Wound: This 62-year-old male with significant past medical history of diabetes with neuropathy peripheral vascular disease, debility, prior PEG tube (not current), arrhythmia, restrictive airway disease, history of heart failure and cardiac stent placement, hypertension, GERD, sleep apnea and mood disorder is following up today from the hospital for a left foot ulcer. He relates the onset of the ulcer was 05-13-2022 after a blister occurred. He was treated for cellulitis with IV and then oral antibiotics during recent [facility] admission. He was referred to see vascular specialist after having abnormal arterial findings in which he did not proceed forward with yet. He reports he is taking protein shake supplements but not Aubrey. He has trouble with debility and difficulty walking in the outpatient setting and was recently in a [facility] the past month undergoing rehab. That is why he has not had epi fix applied in a week. He is amenable to proceed today for wound is healthy enough. He reports he had Betadine gauze applied to the wound while at the [facility] facility. He denies odor or redness. Progress of Wound: This patient is new to me, he had been seeing another provider who is no longer working at the clinic. He has a left lateral heel ulcer that appears stable. He was in [place] but was just discharged within the past couple days. He has [facility] to help with his wound care. He uses a walker at home and his states that he is able to ambulate ok with the walker. Objective Data Objective Data Vital Signs: Vital Signs Temp Pulse Resp BP O2 Del Method O2 Flow Rate 97.6 F L 76 22 H 151/71 H Nasal Cannula 4 08/26/22 13:10 08/26/22 13:10 08/26/22 13:10 08/26/22 13:10 08/26/22 13:10 08/26/22 13:10 Oxygen Flow Rate (L/min) 4 Oxygen Delivery Method Nasal Cannula Weight: 287 lb Body Mass Index (BMI) 41.1 Charges/Coding Procedures Integumentary 111xxx-113xx: [id number] Gabriela subq tissue 20 sq cm/< Physical Exam Const alert and no apparent distress HEENT normocephalic Resp normal respiratory effort and clear to auscultation bilaterally Cardio regular rate and regular rhythm GI non-tender Palpation: soft Extremity normal to inspection Extremity Narrative: +1 edema left leg and foot. Skin Wound Narrative: Left lateral heal ulcer has fibrous tissue on the base of the ulcer. Neuro CN's II-XII intact bilaterally Psych affect normal Debridement Note Debridement Note Wound debrided: lateral heel ulcer Laterality: Left Type of Debridement: Excisional debridement Anesthesia Used: 5% Lidocaine Gel Depth: Down to and including healthy tissue and in the subcutaneous layer Percentage of wound debrided: 100 Instrument Used: 3mm curette Tissue Removed: Devitalized tissue and slough Severity: Fat Layer Exposed Amount of bleeding with debridement: Mild Bleeding Controlled with: Compression and gauze Patient tolerated procedure: Patient tolerated procedure well Post-Debridement Measurements and Additional Note: Post-Debridement Measurements/Treatment - Nurse 1 - General Ulcer Assessment Start: 08/26/22 13:10 Freq: Status: Active Protocol: [email or web address].[email or web address] Activity Type Activity Date Activity User E-sign Co-sign Detail Recorded Client Recorded Date Recorded By Document 08/26/22 13:10 DL [id number] 08/26/22 13:21 DL 08/26/22 13:10 - Today's Visit Information Type of service Follow-up Visit (Physician/DECORATING INSPECTOR ) Arrival Mode Wheelchair Transfer Assistance Manual Transfer Assist (Other) x2 Patient Identification Verified (Name & Yes ) Patient Requires Transmission-Based No Precautions Finger Stick Blood Sugar(mg/dl) (if 109 indicated): Blood Sugar Stated by Patient Height and Weight Body Mass Index (BMI) 41.1 BMI Classification Obese Vital Signs Temperature (97.8 F-99.1 F) 97.6 F L Temperature Source Temporal Pulse Rate (60-100) 76 Pulse Location Monitor Respiratory Rate (12-18) 22 H Respiratory rate source Observation Oxygen Delivery Method Nasal Cannula O2 L/MIN (L/min) 4 Blood Pressure (90/60-120/80) 151/71 H Blood Pressure Mean (mm Hg) 97 Source Monitor History Since Last Visit- (Skip if this is Patient's initial visit) Have you changed medications since your No last visit? Any new allergies or adverse reactions No Had a fall/change in ADL's that may No increase risk of falls Signs or symptoms of abuse and/or No neglect since last visit Have you been in the hospital since your No last visit? Has dressing in place as prescribed Yes Has compression in place as prescribed Yes Has offloadiing in place as prescribed Yes Experienced any changes in pain level or No management Left Footwear Removable Cast Walker/Walking Boot Pain Scale: 0-10 Numeric Is Patient Pain Free? Yes - Nurse 1 - General Ulcer Measurement Start: 08/26/22 13:10 Freq: Status: Active Protocol: Activity Type Activity Date Activity User E-sign Co-sign Detail Recorded Client Recorded Date Recorded By Document 08/26/22 13:10 [id number] 08/26/22 13:21 DL 08/26/22 13:10 Wound Center Nurse 1 #1- L HEEL -Current Size (cm) - Length 1.4 -Current Size (cm) - Width 1.4 -Current Size (cm) - Depth 0.3 -Total Square Cm 1.96 -Photo Taken Yes -Maximum Distance #2 (cm) 0.2 -Circular Undermining Yes -Exudate Amt Medium -Exudate Type Serosanguineous -Wound Margin Distinct, Outline Attached -Granulation Amt Medium (34-66%) -Granulation Quality Red -Necrosis Amt Medium (34-66%) -Necrotic Tissue Type Adherent Slough -Structure Exposed N/A -Texture (Sammi-wound Skin Appearance) Scarring -Moisture (Sammi-wound Skin Appearance) Maceration -Color (Sammi-wound Skin Appearance) No Abnormality -Temperature (Sammi-wound Skin No Abnormality Appearance) (Pt Warm) -Tenderness on Palpation (Sammi-wound No Skin Appearance) -Ulcer Cleansing Soap and Water -Foul Odor after Cleansing No -Anesthetic Used 5% Lidocaine Gel Left Calf (cm) 40 Left Ankle (cm) 26.5 - Nurse 2 - General Ulcer CM Notes Start: 08/26/22 13:10 Freq: Status: Active Protocol: Activity Type Activity Date Activity User E-sign Co-sign Detail Recorded Client Recorded Date Recorded By Document 08/26/22 13:32 [id number] 08/26/22 13:34 REGLA 08/26/22 13:32 Wound Center Nurse 2 #1- L HEEL -Time 13:33 -Correct Patient Yes -Correct Side, Site, Position Yes -Correct Procedure Yes -Procedure Performed Yes -Type of Procedure Debridement -Clinical Debridement Subcutaneous -Tissue Removed Subcutaneous -Post Debridement (cm) - Length 1.5 -Post Debridement (cm) - Width 1.5 -Post Debridement (cm) - Depth 0.6 -Total Square (Post) (cm) 2.25 -Area of Debridement (cm) - Length 1.5 -Area of Debridement (cm) - Width 1.5 -Total Square (Area) (cm) 2.25 -Tunneling No -Undermining/Tunneling No -Circular Undermining No -Wound/Ulcer Outcome Not Healed -Ulcer Cleansing Rinsed/ Irrigated with Saline -Foul Odor after Cleansing No -Bioengineered Tissue No -Bleeding Controlled with Pressure -Treatment Response Procedure Tolerated Well -Offloading Yes -Type of Offloading Camwalker -Debridement - Subq, 1st 20sq cm Yes Pain Scale: 0-10 Numeric Is Patient Pain Free? Yes - Nurse 3 - General Ulcer D/C NN Start: 08/26/22 13:10 Freq: Status: Active Protocol: Activity Type Activity Date Activity User E-sign Co-sign Detail Recorded Client Recorded Date Recorded By Document 08/26/22 13:42 WI [id number] 08/26/22 13:43 WI 08/26/22 13:42 Wound Care Nurse 3 #1- L HEEL -Ulcer Cleansing Rinsed/ Irrigated with Saline -Foul Odor after Cleansing No -Negative Pressure Wound Therapy N/A -Other Dressing santyl at home hydrogel in office -Primary Dressing Covered/Secured with Dry Gauze & Roll Gauze, Secured with Tape Left -Tubular Bandage Single Layer -Size of Tubigrip Used Size E -Size E ($) 1 Pain Scale: 0-10 Numeric Is Patient Pain Free? Yes - Visit Discharge Discharge Condition Stable Ambulatory Status Wheelchair Transportation Private Auto Accompanied by friend Medication Reconcilliation completed & Yes provided to patient/care provider Clinical Summary of Care Provided Yes Assessment/Plan Assessment/Plan (1) Diabetic ulcer of left foot: CODE(S): E11.621 - Type 2 diabetes mellitus with foot ulcer; L97.529 - Non-pressure chronic ulcer of other part of left foot with unspecified severity (2) Venous insufficiency (chronic) (peripheral): CODE(S): I87.2 - Venous insufficiency (chronic) (peripheral) (3) Localized edema: CODE(S): R60.0 - Localized edema (4) Type 2 diabetes mellitus with diabetic polyneuropathy: CODE(S): E11.42 - Type 2 diabetes mellitus with diabetic polyneuropathy (5) Type 2 diabetes mellitus with foot ulcer: CODE(S): E11.621 - Type 2 diabetes mellitus with foot ulcer; L97.509 - Non-pressure chronic ulcer of other part of unspecified foot with unspecified severity (6) History of diabetes mellitus: CODE(S): Z86.39 - Personal history of other endocrine, nutritional and metabolic disease PLAN: Plan Patient was evaluated at the wound healing center today. A subcutaneous debridement was performed as documented. Patient just recently was discharged from [facility] in the past couple days. Wound care - Collagen Santyl to the left lateral ulcer nickel thickness covered with gauze daily after washing with soap and water. Compression - Single tubigrip. Off loading - Cam walker., walks with walker. Vascular: Abnormal blood flow studies noted. To follow up with vascular referral to Dr. Julian. Prior intervention noted. He continues on plavix.? He is noncompressible vessels and EKTA was not calculated.? His toe brachial index on the left side is 0.22 and I do not recommend total contact cast application until adequate perfusion is confirmed. He is diabetic, encouraged diet high in protein with low carbohydrates and to take his medication to help control his blood sugars. Follow up two weeks. He has home health at home.
== END 2022-08-28 23:59 | disposition home or self-care (01) ==
LOC: WC 13:00
PROVIDERS: PCP Internal Medicine; Visit Provider Podiatrist
DX: E11.621 Type 2 diabetes mellitus with foot ulcer (principal); E11.51 Type 2 diabetes mellitus with diabetic peripheral angiopathy without gangrene; L97.522 Non-pressure chronic ulcer of other part of left foot with fat layer exposed; I50.9 Heart failure, unspecified; I11.0 Hypertensive heart disease with heart failure; E11.42 Type 2 diabetes mellitus with diabetic polyneuropathy; Z79.4 Long term (current) use of insulin; S90.822S Blister (nonthermal), left foot, sequela; X58.XXXS Exposure to other specified factors, sequela; R60.0 Localized edema; I87.2 Venous insufficiency (chronic) (peripheral); R26.2 Difficulty in walking, not elsewhere classified; J45.909 Unspecified asthma, uncomplicated; K21.9 Gastro-esophageal reflux disease without esophagitis; G47.30 Sleep apnea, unspecified; Z79.82 Long term (current) use of aspirin; Z79.02 Long term (current) use of antithrombotics/antiplatelets; Z79.899 Other long term (current) drug therapy; Z95.5 Presence of coronary angioplasty implant and graft
CPT/HCPCS: 11042

== ENCOUNTER 2022-08-30 09:39 | Observation (INO) | payer MEDICARE, MEDICAID, SELFPAY ==
[2022-08-30] VITALS (9 sets, daily range): BP systolic 141–171; BP diastolic 60–80; PULSE 50–63; RESP 16–18; TEMP 36.6–37.1; O2SAT 95–100; BMI 39.3
--- NOTE | 2022-08-30 10:16 | RAD_ITS ---
EXAM: XR CHEST, 1 VIEW CLINICAL INDICATION: weakness TECHNIQUE: Frontal view of the chest. This report was created using [employer] report generation technology. COMPARISON: 08/12/2022 FINDINGS: LUNGS AND PLEURAL SPACES: There is left basilar airspace disease. No pneumothorax. No effusion. HEART: Cardiac silhouette is mildly enlarged in size. MEDIASTINUM: Central airways and mediastinal contour are unremarkable. BONES/JOINTS: Unremarkable. SOFT TISSUES: Unremarkable. RAD/Chest 1 View (Portable) IMPRESSION: Cardiomegaly with left basilar airspace disease which may represent atelectasis or pneumonia. Electronically Signed: Demetrius Talbert MD at 11:15 EDT ,
--- NOTE | 2022-08-30 10:17 | EDS_ITS ---
HPI HPI - Fall History of Present Illness Chief Complaint: Fall Detail of Chief Complaint: Too weak to get out of a chair slipped and went down to the floor. Informant: patient Occured/Mechanism Occurred: Today and Hours Usually ambulates: Without assistance Pain/Injury Pain Location: none Associated Symptoms Associated Symptoms: Positive for Weakness Narrative Narrative: 62-year-old male extensive past medical history of diabetes, COPD for which she is on 3 L of O2 at home. Prior [facility] with cardiac st[facility] on Plav[facility]. Recent hospitalization at this facility and transferred to local longterm. He is now home. Says he just felt weak and today try to get out of a chair was too weak slipped and went down to the floor. Denies any injuries. Said he was too weak to stand up. They called the squad and brought him in. He denies any na usea, vomiting or diarrhea. He denies any fever or chills. He denies any headache or chest pain. Prior similar symptoms: Yes Recent Illness/Hospitalization: Yes [facility] Medical History Ambulates with cane Amputation of one or more toes Anxiety and depression Arrhythmia Arthritis Aspiration into airway Aspiration pneumonia Atherosclerotic heart disease of [place] coronary artery without angina pectoris Bilateral leg weakness Blind left eye Blister (nonthermal), left foot, initial encounter Bronchiectasis with (acute) exacerbation Cardiology follow-up encounter Chronic cough Chronic respiratory failure with hypoxia COPD (chronic obstructive pulmonary disease) CPAP (continuous positive airway pressure) dependence Debility, unspecified Depression Diabetes Essential hypertension Gastric reflux GERD (gastroesophageal reflux disease) High cholesterol History of aspiration pneumonia History of echocardiogram History of edema History of gout History of heart attack History of non-ST elevation myocardial infarction (NSTEMI) (08/2016) History of pain when walking History of steroid therapy History of stress test Hyperglycemia due to type 2 diabetes mellitus Hypertension Insulin dependent diabetes mellitus Kidney stones Leg pain, right Leukocytosis Low back pain Memory impairment Migraines Mood disorder Myocardial infarct Non-smoker Noncompliance by declining intervention or support On home oxygen therapy Peripheral vascular occlusive disease Pneumonia Prostate disease Pulmonary nodule, left Recurrent falls Right ankle pain Shortness of breath on exertion Silent aspiration Sleep apnea Tremor Type 2 diabetes mellitus Type 2 diabetes mellitus with diabetic polyneuropathy Ulcer of left foot, limited to breakdown of skin 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 Wears glasses Wound of left lower extremity Home Medications acetaminophen 500 mg tablet 1,000 mg PO QHS PRN PRN Pain 1-10 Or Fever 02/11/21 [History Last Taken 05/14/22 18:50 1000] aspirin 81 mg tablet,delayed release (Adult Aspirin Regimen) 81 mg PO DAILY heart health 11/05/21 [History Last Taken 07/01/22] spironolactone 25 mg tablet 25 mg PO QHS diuretic 11/08/21 [History Last Taken 07/01/22] peg [id number] 1 %-0.2 %-0.2 % eye drops (Artificial Tears ([id number])) 2 drp EACH EYE Q1H PRN DRY EYES #0 mL 11/14/21 [Rx Last Taken Unknown] nitroglycerin 0.4 mg sublingual tablet 0.4 mg sublingual Q5M PRN Chest Pain #30 tabs 11/25/21 [Rx Last Taken Unknown] atorvastatin 80 mg tablet 80 mg PO QHS cholesterol #90 tabs 01/09/22 [Rx Last Taken 06/30/22] finasteride 5 mg tablet 5 mg PO DAILY prostate #90 tabs 01/09/22 [Rx Last Taken 07/01/22] furosemide 40 mg tablet 40 mg PO DAILY fluid #90 tabs 01/09/22 [Rx Last Taken 07/01/22] albuterol sulfate 90 mcg/actuation aerosol inhaler 2 puff inhalation Q4H PRN shortness of breath or wheezing #8.5 grams 02/04/22 [Rx Last Taken Unknown] pantoprazole 20 mg tablet,delayed release 20 mg PO DAILY gerd 02/04/22 [History Last Taken 07/01/22] carvedilol 12.5 mg tablet 12.5 mg PO BID heart #180 tabs 02/05/22 [Rx Last Taken 07/01/22] losartan 50 mg tablet 50 mg PO DAILY bp 03/21/22 [History Last Taken 07/01/22] clopidogrel 75 mg tablet 75 mg PO DAILY blood thinner #90 tabs 03/30/22 [Rx Last Taken 07/01/22] isosorbide mononitrate 30 mg tablet,extended release 24 hr 30 mg PO DAILY heart #90 tabs 03/30/22 [Rx Last Taken 07/01/22] loratadine 10 mg tablet (Allergy Relief (loratadine)) 10 mg PO DAILY allergies 05/21/22 [History Last Taken 07/01/22] insulin detemir U-100 100 unit/mL (3 mL) subcutaneous pen 44 unit (0.44 mL) subcut QHS dm #15 mL 05/26/22 [Rx Last Taken 06/30/22] buspirone 7.5 mg tablet 15 mg PO TID mood #90 tabs 07/03/22 [Rx Last Taken 07/01/22] clonazepam 1 mg tablet 1 mg PO BID PRN PRN anxiety #14 tabs 07/03/22 [Rx Last Taken Unknown] fluoxetine 20 mg capsule 60 mg PO DAILY #0 caps 07/03/22 [Rx Last Taken Unknown] gauze bandage 4 X 4 (Bordered Gauze) #14 ea 07/03/22 [Rx Last Taken Unknown] nystatin 100,000 unit/gram topical powder (Nyamyc) 1 applic topical BID #0 grams 07/03/22 [Rx Last Taken Unknown] [place]ra[place] [facility] [place]1 ea 07/21/22 [Rx Last Taken Unknown] metoclopramide HCl 5 mg tablet 5 mg PO TID #90 tabs 07/31/22 [Rx Last Taken Unknown] insulin lispro 100 unit/mL subcutaneous pen sliding scale dose subcut ACHS Check with primary doctor 08/12/22 [History Last Taken Unknown] pregabalin 75 mg capsule (Lyrica) 75 mg PO BID Check with primary doctor 08/12/22 [History Last Taken Unknown] amlodipine 5 mg tablet 10 mg PO DAILY #0 tabs 08/14/22 [Rx Last Taken Unknown] carvedilol 12.5 mg tablet 25 mg PO BID #0 tabs 08/14/22 [Rx Last Taken Unknown] Allergy/AdvReac Type Severity Reaction Status Date / Time allopurinol AdvReac Vomiting Verified 08/24/22 13:30 Influenza Virus Vaccines AdvReac Vomiting Verified 08/24/22 13:30 pneumococcal vaccine AdvReac Vomiting Verified 08/24/22 13:30 Family History Mother Diabetes Heart disease CHF Father Heart disease VA/CAD Myocardial infarction Surgical History H/O lithotripsy History of angioplasty of peripheral vessel (2017) History of angioplasty of peripheral vessel History of ankle surgery History of cardiac catheterization History of coronary artery stent placement (08/2016) History of coronary artery stent placement History of esophagogastroduodenoscopy (EGD) History of left heart catheterization (11/15/17) History of thyroid surgery Hx of lithotripsy Hx of surgery to heart and great vessels, presenting hazards to health Hx of surgical procedure Hx of thyroidectomy Hx of toe surgery Hx of toe surgery PEG (percutaneous endoscopic gastrostomy) status Social History household members: spouse housing: apartment Smoking Status: Never smoker alcohol intake: never substance use type: does not use ROS ROS ED ROS Narrative Denies. Review of Systems ROS Unobtainable: Denies due to encephalopathy Constitutional Constitutional ED: Denies chills or fever(s) Eyes Eyes: Denies blurry vision ENT ENT ED: Denies ear pain Cardiovascular Cardiovascular: Denies chest pain Respiratory/Chest Respiratory/Chest: Denies cough Gastrointestinal Gastrointestinal: Denies abdominal pain Genitourinary Genitourinary ED: Denies dysuria Musculoskeletal Musculoskeletal: Denies arthralgias Integumentary Denies abscess Neurologic Neurologic: Denies headache(s) Psychiatric Psychiatric: Denies anxiety Endocrine Endocrinology: Denies polydipsia Hematologic/Lymphatic Hematologic/Lymphatic: Denies easy bleeding Allergic/Immunologic Allergic/Immunologic ED: Denies mouth swelling EXAM Physical Exam Narrative Exam Narrative: 62-year-old male no acute distress. Sitting upright in bed. Vital signs are stable. He is afebrile. On 4 L he is on a percent. No hypoxia on oxygen. H EENT exam unremarkable. Atraumatic. Moist mucous membranes. Pupils round reactive light. Neck nontender. Lungs clear to auscultation. Heart regular rhythm rate about 60 no murmur. Chest wall nontender. Abdomen soft nontender. Obese. Pelvic girdle intact. Moving all 4 extremities. Normal geophysical prospecting surveyor strength. Dorsi plantarflexion intact. Wraps on his lower extremities. 1+ pitting edema. Back nontender. Neurologically is awake and alert. He is moving all 4 extremities. He is answering questions and following commands. Const Vital Signs: 08/30/22 09:40 08/30/22 09:44 Temperature 98.2 F Temperature Source Oral Pulse Rate 63 Respiratory Rate 16 Respiratory Effort Normal Non-Labored Respiratory Depth Normal Respiratory Pattern Normal Blood Pressure 156/78 H Blood Pressure Mean 104 Pulse Ox 100 99 Oxygen Delivery Method Nasal Cannula Nasal Cannula Oxygen Flow Rate (L/min) 4 Positive well nourished, well developed, obese and unkempt; Negative for cachectic or contractures General Appearance ED: unkempt, well developed and NAD; Negative for cachectic or contractures Nutritional Appearance: obese; Negative for cachectic HEENT Reports normocephalic atraumatic; Negative for trauma, contusion, hematoma or tenderness Eyes PERRL and EOMs intact bilaterally General Eye ED: Negative for pale conjunctiva or scleral icterus Neck full ROM, no lymphadenopathy and supple General: Negative for tenderness Chest Wall inspection of chest normal and palpation of chest normal Chest: Negative for other Resp normal respiratory effort, no retractions and clear to auscultation bilaterally Effort and Inspection: Negative for pain with movement Auscultation: Negative for rales, rhonchi or wheezes Cardio regular rate, regular rhythm, S1 normal heart sound, S2 normal heart sound and no murmurs Rate: Negative for bradycardia Rhythm: Negative for abnormal rhythm GI non-tender, non-distended and no masses Inspection: Negative for abdominal distention Auscultation: normoactive bowel sounds Palpation: soft; Negative for guarding Back/Spine no CVA tenderness General Back: Negative for CVA tenderness Cervical Spine: Negative for cervical spine tenderness Thoracic Spine / Upper Back: Negative for ROM limited Lumbar Spine / Lower Back: Negative for lumbar spinal tenderness Neuro oriented x3, CN's II-XII intact bilaterally, moves all extremities and no focal motor deficits Elliott Coma Scale: document GCS findings Spontaneous Obeys Commands Oriented 15 Sensorium / Orientation: alert, oriented to person, oriented to place and oriented to time; Negative for orientation impaired, confused, lethargic or stuporous Motor Exam: strength 5/5 throughout Psych Appearance: unkempt Skin Lesions: no lesions Rashes: no rashes MDM MDM MDM Narrative Medical decision making narrative: 62-year-old male recently hospitalized and then was sent to a longterm but he is now home. He has an extensive past medical history. Today he was too weak to get out of a chair and slipped to the floor. He denies any injuries. But he was unable to get up and squad was called he was brought to the emergency department. He denies recent illness for last several days. Screening labs will be obtained. Repeat exam unchanged. We did roll him he is got a pressure sore on his buttocks but there is no breakdown of skin. Its red is tender. There is no abscess. Myself and to male nurses attempted there is no way this patient can get up and walk on his own. I will speak to the hospitalist about admission. Lab Data Attestation: I reviewed the patient's lab results. Lab results narrative: CBC shows a white count 8.8. H&H 11.9 and 36.5. Platelets 172. Electrolytes show a gap of 7 BUN and creatinine 21.4. Glucose of 360. Chest x-ray showed chronic changes. No acute process. Labs: Laboratory Results - last 24 hr 08/30/22 08/30/22 10:30 10:30 WBC 8.8 RBC 4.21 L Hgb 11.9 L Hct 36.5 L MCV 86.7 MCH 28.3 MCHC 32.6 RDW Std Deviation 43.8 RDW Coeff of James 13.8 Plt Count 172 MPV 11.5 Immature Gran % (Auto) 0.300 Neut % (Auto) 66.7 Lymph % (Auto) 17.8 L [place] % (Auto) 10.7 H Eos % (Auto) 3.9 Baso % (Auto) 0.6 Absolute Neuts (auto) 5.9 Absolute Lymphs (auto) 1.57 Nucleated RBC % 0 Sodium 138 Potassium 4.0 Chloride 97 L Carbon Dioxide 34.0 H Anion Gap 7 BUN 28 H Creatinine 1.48 H Estim Creat Clear Calc 52.75 Est GFR (MDRD) Af Amer 62 Est GFR (MDRD) Non-Af 51 L BUN/Creatinine Ratio 18.9 Glucose 360 H Calcium 9.2 Radiography Diagnostic Testing: Clinical Impression(s) from Imaging Studies Chest X-Ray 08/30/22 10:16 IMPRESSION: Cardiomegaly with left basilar airspace disease which may represent atelectasis or pneumonia. Electronically Signed: Demetrius Talbert MD at 11:15 EDT , Chest x-ray, portable, single view interpreted by myself shows no acute process. Chronic changes. Elevated right hemidiaphragm. No significant change from prior. Rhythm Strip Rhythm Strip: Sinus Rhythm Rate: 64 Ectopy: None EKG Initial EKG: Attestation: I personally reviewed and interpreted this EKG as follows: Interpretation: Sinus Rhythm and No Acute Injury Pattern Comments: Normal sinus rhythm rate of 64 no acute signs of VA or ischemia. Unchanged from a prior EKG from August 12. Prior EKG tracings: available for review Prior: Unchanged Discharge Plan Dx/Rx/DC Orders Clinical Impression: Fall, Generalized weakness, Unable to ambulate, History of diabetes mellitus, History of COPD, History of coronary artery disease, Acute kidney injury Disposition Disposition: Acute Care Hospital [facility]
[2022-08-30 10:38] LABS: Absolute Lymphocyte Count 1.57 X10^3/uL (0.83-4.51); Absolute Neutrophil Count 5.9 X10^3/uL (2.0-7.7); Basophil# 0.05 X10^3/uL; Basophil% 0.6 % (0-1); Eosinophil# 0.34 X10^3/uL; Eosinophils% 3.9 % (0-5); Hematocrit 36.5 % (40-54); Hemoglobin 11.9 g/dL (13.0-16.5); Lymphocyte # 1.57 X10^3/ul (0.83-4.51); Lymphocyte % 17.8 % (19-41); Mean Corp Hgb Conc 32.6 g/dL (32-36); Mean Corpuscular Hgb 28.3 pg (27.0-32.0); Mean Corpuscular Volume 86.7 fL (80-94); Mean Platelet Vol. 11.5 fl (6.2-12.0); Monocyte# 0.94 X10^3/uL; Monocyte% 10.7 % (0-10); NRBC Flagged by Analyzer 0 % (0-5); Neutrophil # 5.88 X10^3/uL (2.7-7.7); Neutrophil % 66.7 % (47-70); Platelet Count 172 K/mm3 (150-450); RBC Distribution Width CV 13.8 % (11.6-14.6); RBC Distribution Width SD 43.8 fl (35.1-43.9); Red Blood Count 4.21 M/mm3 (4.6-6.2); White Blood Count 8.8 K/mm3 (4.4-11.0)
[2022-08-30 10:53] LABS: Anion Gap 7 (5-15); BUN 28 mg/dL (7-18); BUN/Creat Ratio 18.9 RATIO (10-20); Calcium,Total 9.2 mg/dL (8.5-10.1); Chloride 97 mmol/L (98-107); Creatinine, Serum 1.48 mg/dL (0.70-1.30); EST Glomerular Filtration Rate 51 mL/min (>60); Est Glom Filt Rate - Afr Amer 62 mL/min (>60); Estimated Creatinine Clearance 52.75 ml/min; Glucose 360 mg/dL (74-106); Sodium Level 138 mmol/L (136-145)
--- NOTE | 2022-08-30 11:50 | NURSING ---
MED SURG OBS TERELETSKY WEAKNESS, UNABLE TO WALK, COPD, DM, HX OR
[2022-08-30] MEDS: Furosemide 40 MG Tablet PO (16:07)
[2022-08-30] MEDS: Losartan Potassium 50 MG Tablet PO (16:07)
[2022-08-30] MEDS: Pantoprazole Sodium 20 MG Tablet PO (16:08)
[2022-08-30] MEDS: FLUoxetine 20 MG Capsule 60 MG PO (16:08)
[2022-08-30] MEDS: Clopidogrel Bisulfate 75 MG Tablet PO (16:08)
[2022-08-30] MEDS: amLODIPine 10 MG Tablet PO (16:08)
[2022-08-30] MEDS: 0.9% Saline Lock 10 ML Syringe IV ×2 (16:13→21:59)
[2022-08-30 16:28] LABS: Bacteria 0 SEEN /hpf (None Seen); Mucous, Urine 0 SEEN /hpf (<or=2+); Red Blood Cells-Urine 0 SEEN /hpf (0-5); Squamous Epithelial Cells - UA 0 SEEN /hpf (0-5); White Blood Cells 0 SEEN /hpf (0-5)
[2022-08-30 16:32] LABS: Color, Urine Yellow (Yellow); Glucose, Dipstick 1000 mg/dl (Normal); Ketone-Dipstick Negative (Negative); Leukocyte Esterase-Dipstick Negative /ul (Negative); Nitrite-Dipstick Negative (Negative); Occult Blood-Urine Negative /ul (Negative); Protein-Dipstick 15 mg/dl (Negative); Urine Bilirubin Dipstick Negative (Negative); Urine Clarity Clear (Clear); Urine Urobilinogen Normal (Normal)
--- NOTE | 2022-08-30 17:10 | HP.PCM.HOS_ITS ---
HPI - General General Date of Admission: 08/30/22 Date of Service: 08/30/22 Chief Complaint: Generalized weakness HPI Narrative REA HANNA, is a 62 M who presents to the emergency room at [facility] after being brought in by squad when he was found prone on the floor of his living room in front of his recliner. Patient has been home from the detention for approximately a week, he had gone there for rehab services a fter his recent admission here for aspiration pneumonia. Patient is severely debilitated and needs help with all activities, he is not very active at home according to his significant other. Work-up in the emergency room included labs-CBC was remarkable for hemoglobin of 11.9, chemistry panel was remarkable for BUN of 28, creatinine of 1.48, and a glucose of 360. Urinalysis was unremarkable. Patient's chest x-ray showed cardiomegaly with left basilar airspace disease which may represent atelectasis or possible pneumonic infiltrate. Patient's pulse ox was above 90% on 4 L-it appears from his medical record that he wears 4 L at all times. Patient will be placed in observation status on MedSurg 3 for acute debility, he will need placement in a long term facility, he was at [place] according to his significant other and she would rather not have him go back there. PENDING SALE TO [facility] Medical History Ambulates with cane Amputation of one or more toes Anxiety and depression Arrhythmia Arthritis Aspiration into airway Aspiration pneumonia Atherosclerotic heart disease of [place] coronary artery without angina pectoris Bilateral leg weakness Blind left eye Blister (nonthermal), left foot, initial encounter Bronchiectasis with (acute) exacerbation Cardiology follow-up encounter Chronic cough Chronic respiratory failure with hypoxia COPD (chronic obstructive pulmonary disease) CPAP (continuous positive airway pressure) dependence Debility, unspecified Depression Diabetes Essential hypertension Gastric reflux GERD (gastroesophageal reflux disease) High cholesterol History of aspiration pneumonia History of echocardiogram History of edema History of gout History of heart attack History of non-ST elevation myocardial infarction (NSTEMI) (08/2016) History of pain when walking History of steroid therapy History of stress test Hyperglycemia due to type 2 diabetes mellitus Hypertension Insulin dependent diabetes mellitus Kidney stones Leg pain, right Leukocytosis Low back pain Memory impairment Migraines Mood disorder Myocardial infarct Non-smoker Noncompliance by declining intervention or support On home oxygen therapy Peripheral vascular occlusive disease Pneumonia Prostate disease Pulmonary nodule, left Recurrent falls Right ankle pain Shortness of breath on exertion Silent aspiration Sleep apnea Tremor Type 2 diabetes mellitus Type 2 diabetes mellitus with diabetic polyneuropathy Ulcer of left foot, limited to breakdown of skin 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 Wears glasses Wound of left lower extremity Home Medications acetaminophen 500 mg tablet 1,000 mg PO QHS PRN PRN Pain 1-10 Or Fever 02/11/21 [History Last Taken 05/14/22 18:50 1000] aspirin 81 mg tablet,delayed release (Adult Aspirin Regimen) 81 mg PO DAILY heart health 11/05/21 [History Last Taken 08/29/22 08:00] spironolactone 25 mg tablet 25 mg PO QHS diuretic 11/08/21 [History Last Taken 08/29/22 22:00] peg [id number] 1 %-0.2 %-0.2 % eye drops (Artificial Tears ([id number])) 2 drp EACH EYE Q1H PRN DRY EYES #0 mL 11/14/21 [Rx Last Taken Unknown] nitroglycerin 0.4 mg sublingual tablet 0.4 mg sublingual Q5M PRN Chest Pain #30 tabs 11/25/21 [Rx Last Taken Unknown] atorvastatin 80 mg tablet 80 mg PO QHS cholesterol #90 tabs 01/09/22 [Rx Last Taken 08/29/22 22:00] finasteride 5 mg tablet 5 mg PO DAILY prostate #90 tabs 01/09/22 [Rx Last Taken 08/29/22 22:00] furosemide 40 mg tablet 40 mg PO DAILY fluid #90 tabs 01/09/22 [Rx Last Taken 08/29/22 08:00] albuterol sulfate 90 mcg/actuation aerosol inhaler 2 puff inhalation Q4H PRN shortness of breath or wheezing #8.5 grams 02/04/22 [Rx Last Taken Unknown] pantoprazole 20 mg tablet,delayed release 20 mg PO DAILY gerd 02/04/22 [History Last Taken 08/29/22 08:00] carvedilol 12.5 mg tablet 12.5 mg PO BID heart #180 tabs 02/05/22 [Rx Last Taken 07/01/22] losartan 50 mg tablet 50 mg PO DAILY bp 03/21/22 [History Last Taken 08/29/22 08:00] clopidogrel 75 mg tablet 75 mg PO DAILY blood thinner #90 tabs 03/30/22 [Rx Last Taken 08/29/22 08:00] isosorbide mononitrate 30 mg tablet,extended release 24 hr 30 mg PO DAILY heart #90 tabs 03/30/22 [Rx Last Taken 07/01/22] loratadine 10 mg tablet (Allergy Relief (loratadine)) 10 mg PO DAILY allergies 05/21/22 [History Last Taken 08/29/22 08:00] insulin detemir U-100 100 unit/mL (3 mL) subcutaneous pen 44 unit (0.44 mL) subcut QHS dm #15 mL 05/26/22 [Rx Last Taken 06/30/22] buspirone 7.5 mg tablet 15 mg PO TID mood #90 tabs 07/03/22 [Rx Last Taken 08/29/22 22:00] clonazepam 1 mg tablet 1 mg PO BID PRN PRN anxiety #14 tabs 07/03/22 [Rx Last Taken Unknown] fluoxetine 20 mg capsule 60 mg PO DAILY #0 caps 07/03/22 [Rx Last Taken 08/29/22 22:00] gauze bandage 4 X 4 (Bordered Gauze) #14 ea 07/03/22 [Rx Last Taken Unknown] nystatin 100,000 unit/gram topical powder (Nyamyc) 1 applic topical BID #0 grams 07/03/22 [Rx Last Taken Unknown] walker (Ultra-Light Rollator [facility]) #1 ea 07/21/22 [Rx Last Taken Unknown] metoclopramide HCl 5 mg tablet 5 mg PO TID #90 tabs 07/31/22 [Rx Last Taken 08/29/22 22:00] insulin lispro 100 unit/mL subcutaneous pen sliding scale dose subcut ACHS Check with primary doctor 08/12/22 [History Last Taken Unknown] pregabalin 75 mg capsule (Lyrica) 75 mg PO BID Check with primary doctor 08/12/22 [History Last Taken 08/29/22 22:00] amlodipine 5 mg tablet 10 mg PO DAILY #0 tabs 08/14/22 [Rx Last Taken 08/29/22 08:00] carvedilol 12.5 mg tablet 25 mg PO BID #0 tabs 08/14/22 [Rx Last Taken 08/29/22 22:00] Allergy/AdvReac Type Severity Reaction Status Date / Time allopurinol AdvReac Vomiting Verified 08/24/22 13:30 Influenza Virus Vaccines AdvReac Vomiting Verified 08/24/22 13:30 pneumococcal vaccine AdvReac Vomiting Verified 08/24/22 13:30 Family History Mother Diabetes Heart disease CHF Father Heart disease [place]/CAD Myocardial infarction Surgical History H/O lithotripsy History of angioplasty of peripheral vessel (2016) History of angioplasty of peripheral vessel History of ankle surgery History of cardiac catheterization History of coronary artery stent placement (08/2016) History of coronary artery stent placement History of esophagogastroduodenoscopy (EGD) History of left heart catheterization (11/15/17) History of thyroid surgery Hx of lithotripsy Hx of surgery to heart and great vessels, presenting hazards to health Hx of surgical procedure Hx of thyroidectomy Hx of toe surgery Hx of toe surgery PEG (percutaneous endoscopic gastrostomy) status Social History household members: spouse housing: apartment Smoking Status: Never smoker alcohol intake: never substance use type: does not use ROS ROS Narrative Patient is a poor informant, he appears somnolent at times during our conversation. Constitutional Constitutional: Reports fatigue and weakness; Denies anorexia, change in weight, chills, fever(s) or night sweats Eyes Eyes: Denies blurry vision, change in vision, discharge from eye(s) or eye pain ENT HEENT: Denies abnormal hearing or dysphagia Cardiovascular Cardiovascular: Reports dyspnea on exertion; Denies chest pain, claudication, edema or palpitations Respiratory/Chest Respiratory/Chest: Reports dyspnea and shortness of breath with exertion; Denies cough, hemoptysis or shortness of breath at rest Gastrointestinal Gastrointestinal: Denies abdominal pain, constipation, diarrhea, dyspepsia, hematemesis, hematochezia, melena, nausea or vomiting Genitourinary Genitourinary: Denies dysuria, hematuria, urinary frequency, urinary hesitancy, urinary incontinence or urinary urgency Musculoskeletal Musculoskeletal: Reports joint pain; Denies back pain, joint stiffness, joint swelling, myalgias or neck pain Neurologic Neurologic: Reports numbness and tingling; Denies abnormal speech, dizziness, focal weakness, headache(s), loss of vision, other visual disturbances or syncope Psychiatric Psychiatric: Reports depression; Denies anxiety, cognitive impairment, irritability, mood swings or suicidal ideation Endocrine Endocrinology: Denies change in body appearance, cold intolerance, excessive sweating, heat intolerance, polydipsia or polyuria Hematologic/Lymphatic Hematologic/Lymphatic: Denies none, anemia, easy bleeding, easy bruising or lymphadenopathy Allergic/Immunologic Allergic/Immunologic: Denies rhinitis, urticaria, eczemia or asthma Vital Signs Vital Signs Vital Signs: 08/30/22 09:40 08/30/22 09:44 08/30/22 11:40 Temperature 98.2 F Temperature Source Oral Pulse Rate 63 57 L Respiratory Rate 16 16 Respiratory Effort Normal Non-Labored Respiratory Depth Normal Respiratory Pattern Normal Blood Pressure 156/78 H 171/80 H Blood Pressure Mean 104 110 Blood Pressure Source Blood Pressure Position Blood Pressure Location Pulse Ox 100 99 98 Oxygen Delivery Method Nasal Cannula Nasal Cannula Oxygen Flow Rate (L/min) 4 08/30/22 11:41 08/30/22 13:10 08/30/22 13:10 Temperature 98.7 F 98 F Temperature Source Temporal Oral Pulse Rate 59 L 60 60 Respiratory Rate 18 18 18 Respiratory Effort Normal Respiratory Depth Normal Respiratory Pattern Normal Blood Pressure 171/72 H 143/63 H Blood Pressure Mean 105 89 Blood Pressure Source Monitor Blood Pressure Position Semi-Fowlers Blood Pressure Location Right Arm Pulse Ox 98 100 100 Oxygen Delivery Method Room Air Nasal Cannula Nasal Cannula Oxygen Flow Rate (L/min) 4 4 Weight Weight: 124.4 kg Body Mass Index (BMI) 39.3 Physical Exam Narrative Patient appears lethargic and unwell, he appears sleepy during my conversation with him Const alert, oriented x3 and no apparent distress General Appearance: cooperative and well developed Orientation / Consciousness: awake, oriented to person and oriented to place HEENT normocephalic, head/scalp atraumatic and moist oral mucous membranes Eyes PERRL, EOMs intact bilaterally and conjunctivae normal Neck supple, no JVD, thyroid normal and no carotid bruits General: trachea midline Resp normal respiratory effort, no retractions, no use of accessory muscles and clear to auscultation bilaterally Auscultation: Negative for rales, rhonchi or wheezes Cardio regular rate, regular rhythm, S1 normal heart sound, S2 normal heart sound, no murmurs, no rub and no gallops GI normal to inspection, nondistended, normoactive bowel sounds, soft to palpation, non-tender and non-distended Extremity Extremity Narrative: Patient has a small open area over his left heel that does not appear infected, this area is only 2 cm in diameter area is nonreddened Neuro oriented x3, CN's II-XII intact bilaterally, moves all extremities and no focal motor deficits Neuro Narrative: Decreased sensation to light touch and pain over the feet bilaterally Sensorium / Orientation: awake, alert, oriented to person and oriented to place Speech: speech normal Psych affect normal Results Lab / Micro Data Result Diagrams: 08/30/22 10:30 08/30/22 10:30 Labs: Laboratory Results - last 24 hr 08/30/22 10:30: WBC 8.8, RBC 4.21 L, Hgb 11.9 L, Hct 36.5 L, MCV 86.7, MCH 28.3, MCHC 32.6, RDW Std Deviation 43.8, RDW Coeff of James 13.8, Plt Count 172, MPV 11.5, Immature Gran % (Auto) 0.300, Neut % (Auto) 66.7, Lymph % (Auto) 17.8 L, [place] % (Auto) 10.7 H, Eos % (Auto) 3.9, Baso % (Auto) 0.6, Absolute Neuts (auto) 5.9, Absolute Lymphs (auto) 1.57, Nucleated RBC % 0 08/30/22 10:30: Sodium 138, Potassium 4.0, Chloride 97 L, Carbon Dioxide 34.0 H, Anion Gap 7, BUN 28 H, Creatinine 1.48 H, Estim Creat Clear Calc 52.75, Est GFR (MDRD) Af Amer 62, Est GFR (MDRD) Non-Af 51 L, BUN/Creatinine Ratio 18.9, Glucose 360 H, Calcium 9.2 08/30/22 16:15: Urine Color Yellow, Urine Clarity Clear, Urine pH 6.0, Ur Specif ic [place] 1.020, Urine Protein 15 H, Urine Glucose (UA) 1000 H, Urine Ketones Negative, Urine Occult Blood Negative, Urine Nitrite Negative, Urine Bilirubin Negative, Urine Urobilinogen Normal, Ur Leukocyte Esterase Negative, Urine RBC 0 SEEN, Urine WBC 0 SEEN, Ur Squamous Epith Cells 0 SEEN, Urine Bacteria 0 SEEN, Urine Mucus 0 SEEN Rhythm Strip Rhythm Strip: Sinus Rhythm Rate: 64 Ectopy: None Radiology Impression Chest X-Ray 08/30/22 10:16 IMPRESSION: Cardiomegaly with left basilar airspace disease which may represent atelectasis or pneumonia. Electronically Signed: Demetrius Talbert MD at 11:15 EDT , Assessment & Plan Assessment/Plan (1) Generalized weakness: PLAN: Plan 1.generalized debility-acute on chronic, patient will be placed in observation status on MedSur 3, PT and OT will see the patient, patient will need placement in a long term facility for rehab services. #2 type 2 diabetes-patient was placed on sliding scale insulin and basal insulin, I have elected to increase his dosage of basal insulin due to elevated blood sugar #3 chronic hypoxic respiratory failure secondary to COPD-patient is on 4 L of oxygen at home, he is on 4 L of oxygen here in the hospital, pulse ox will be monitored #4 chronic obstructive pulmonary disease,-patient will be placed on aerosol treatments #5 coronary artery disease-patient is on aspirin, Plavix, I have elected to stop his isosorbide-this is at a small dosage and patient is on polypharmacy as it is. #6 chronic anxiety and depression-patient will continue on his current medication #7 history of cognitive impairment-type unknown, complicates care, management, recovery, and prognosis #8 essential hypertension-patient will remain on his present medications #9 hyperlipidemia-patient will remain on atorvastatin #10 diabetic neuropathy-patient is on Lyrica, this will be continued #11 neuropathic injury left heel-this appears to be chronic, wound nurse will see the patient #12 obesity-complicates care, management, recovery, and prognosis #13 chronic kidney disease stage III a secondary to type 2 diabetes-complicates care, recovery, management, and prognosis Charges/Coding Visit Charges OBSV E&M: 34351 Initial observation care L3
[2022-08-30] MEDS: Insulin Lispro 100 UNIT/ML INSULN.PEN SC ×2 (17:32→22:05)
[2022-08-30 18:10] LABS: Bedside Glucose 285 mg/dL (74-106)
[2022-08-30] MEDS: Metoclopramide 5 MG TABLET PO (21:59)
[2022-08-30] MEDS: Pregabalin 75 MG Capsule PO (21:59)
[2022-08-30] MEDS: Spironolactone 25 MG Tablet PO (21:59)
[2022-08-30] MEDS: busPIRone 15 MG TABLET PO (21:59)
[2022-08-30] MEDS: Atorvastatin Calcium 80 MG Tablet PO (21:59)
[2022-08-30] MEDS: Nystatin Powder 15gm Bottle 1 APPLIC TOPICAL (22:00)
[2022-08-30] MEDS: Menthol/Lanolin/Calamine/Znox 113 GM Tube 1 APPLIC TOPICAL (22:00)
[2022-08-30] MEDS: Heparin Injection (Vial) 5,000 UNIT/ML VIAL 5000 UNIT SC (22:01)
[2022-08-30] MEDS: Insulin Glargine-YFGN 100 UNIT/ML Pen 30 UNIT SC (22:06)
[2022-08-30] MEDS: Carvedilol 25 MG Tablet PO (22:08)
[2022-08-30 22:35] LABS: Bedside Glucose 270 mg/dL (74-106)
[2022-08-31 03:43] VITALS: BP 146/82; PULSE 52; RESP 16; TEMP 36.5; O2SAT 100
[2022-08-31] MEDS: Metoclopramide 5 MG TABLET PO ×3 (06:13→22:04)
[2022-08-31] MEDS: busPIRone 15 MG TABLET PO ×3 (06:13→22:04)
[2022-08-31 06:35] LABS: Bedside Glucose 126 mg/dL (74-106)
[2022-08-31 07:33] LABS: Anion Gap 4 (5-15); BUN 20 mg/dL (7-18); BUN/Creat Ratio 17.9 RATIO (10-20); Calcium,Total 9.3 mg/dL (8.5-10.1); Chloride 102 mmol/L (98-107); Creatinine, Serum 1.12 mg/dL (0.70-1.30); EST Glomerular Filtration Rate 70 mL/min (>60); Est Glom Filt Rate - Afr Amer 85 mL/min (>60); Glucose 150 mg/dL (74-106); Potassium 3.5 mmol/L (3.5-5.1); Sodium Level 142 mmol/L (136-145)
[2022-08-31 08:21] VITALS: BP 164/85; PULSE 54; RESP 18; TEMP 36.9; O2SAT 100
[2022-08-31 08:29] VITALS: O2SAT 100
--- NOTE | 2022-08-31 09:01 | CASEMGMT ---
Social Work Pt has HCPOA naming She Gipson, his significant other, as agent. HCPOA is on file at [facility]. Pt does not have LW and declines the option to complete one. SW offered education to pt on the difference between the documents in hopes to help increase understanding of admitting questions by [facility] nurses. Pt still appeared confused. MINISTERIO Kennedy
--- NOTE | 2022-08-31 09:10 | WOUNDNOTE ---
wound photo: left plantar heel
[2022-08-31] MEDS: Aspirin E.C. 81 MG Tablet PO (09:52)
[2022-08-31] MEDS: Carvedilol 25 MG Tablet PO (09:52)
[2022-08-31] MEDS: Finasteride 5 MG Tablet PO (09:53)
--- NOTE | 2022-08-31 09:54 | CASEMGMT ---
Social Work SW in to speak to pt. Pt sitting in bed, happy to see SW. SW discussed discharge plans with pt and pt stated wants to go back to [place]. SW confirmed as H&P report mentioned pt SO, She, reporting not wanting [facility]. Pt stated She misunderstood and [facility] is first choice. They are good to me there. A printed list of SNF providers including quality and resources use date that is consistent with patient's preferred geographical region, medical needs, and insurances network were provided via the [employer] Guide Link.?Pt stated did not need to look at list and wants to go to [place]. SW informed pt that a referral would be sent to [facility]. SW informed Madhuri Randhawa, discharge restaurant assistant, of pt choice. Referral to [place] to be sent. PLAN: [facility], pending acceptance and precert. MINISTERIO Kennedy
[2022-08-31] MEDS: Pregabalin 75 MG Capsule PO ×2 (09:59→22:18)
[2022-08-31] MEDS: FLUoxetine 20 MG Capsule 60 MG PO (09:59)
[2022-08-31] MEDS: Clopidogrel Bisulfate 75 MG Tablet PO (10:00)
[2022-08-31] MEDS: Furosemide 40 MG Tablet PO (10:00)
[2022-08-31] MEDS: Losartan Potassium 50 MG Tablet PO (10:00)
[2022-08-31] MEDS: Pantoprazole Sodium 20 MG Tablet PO (10:00)
[2022-08-31] MEDS: amLODIPine 10 MG Tablet PO (10:00)
--- NOTE | 2022-08-31 10:00 | CASEMGMT ---
Discharge Swatch Clerk This sql report writer was notified by RICO Chery to send referral to [facility] patients first choice. This sql report writer sent referral via [facility] to [facility]. Plan: [place], Waiting Acceptance Madhuri Morgan Discharge Swatch Clerk
[2022-08-31] MEDS: Insulin Glargine-YFGN 100 UNIT/ML Pen 30 UNIT SC ×2 (10:06→22:09)
[2022-08-31] MEDS: Heparin Injection (Vial) 5,000 UNIT/ML VIAL 5000 UNIT SC ×2 (10:07→22:10)
[2022-08-31] MEDS: Menthol/Lanolin/Calamine/Znox 113 GM Tube 1 APPLIC TOPICAL ×2 (10:07→22:12)
[2022-08-31] MEDS: Nystatin Powder 15gm Bottle 1 APPLIC TOPICAL ×2 (10:08→22:18)
[2022-08-31] MEDS: Insulin Lispro 100 UNIT/ML INSULN.PEN SC ×3 (11:19→22:07)
[2022-08-31 11:40] LABS: Bedside Glucose 322 mg/dL (74-106)
--- NOTE | 2022-08-31 12:47 | PN.HOSP_ITS ---
Subjective Subjective Patient here from 08/12/2022 through 08/14/2022 with aspiration pneumonia. Patient has a long history of aspiration issues. He was discharged to [place] on 08/14/2022 and was home for approximately 5 days before returning to the emergency department on 08/30/2022. Unfortunately, he remains severely debilitated and needs help with all activities. His significant other reports that he is not very active at home which is likely contributing to his ongoing debility. He remains on his baseline 4 L of supplemental oxygen and clinically is relatively stable however he needs placement again in a skilled facility for ongoing rehab services. The patient indicates that he would be okay with going back to [place] where he was previously but does not want to go to [facility] where he has been remotely. Objective Data Objective Data Vital Signs: Vital Signs Temp Pulse Resp BP Pulse Ox O2 Del Method O2 Flow Rate 98.4 F 54 L 18 164/85 H 100 Nasal Cannula 4 08/31/22 08:21 08/31/22 08:21 08/31/22 08:21 08/31/22 08:21 08/31/22 08:29 08/31/22 08:29 08/31/22 10:37 Oxygen Flow Rate (L/min) 4 Oxygen Delivery Method Nasal Cannula Weight: 124.4 kg Body Mass Index (BMI) 39.3 Intake & Output: Intake and Output for Last 24 Hours 08/29/22 08/30/22 08/31/22 23:59 23:59 23:59 Intake Total 860 / 860 Output Total 1600 / 1600 1100 / 1100 Balance -740 / -740 -1100 / -1100 Lab / Micro Data Result Diagrams: 08/30/22 10:30 08/31/22 06:38 Labs: Laboratory Results - last 24 hr 08/30/22 16:15: Urine Color Yellow, Urine Clarity Clear, Urine pH 6.0, Ur Specific [place] 1.020, Urine Protein 15 H, Urine Glucose (UA) 1000 H, Urine Ketones Negative, Urine Occult Blood Negative, Urine Nitrite Negative, Urine Bilirubin Negative, Urine Urobilinogen Normal, Ur Leukocyte Esterase Negative, Urine RBC 0 SEEN, Urine WBC 0 SEEN, Ur Squamous Epith Cells 0 SEEN, Urine Bacteria 0 SEEN, Urine Mucus 0 SEEN 08/30/22 17:26: POC Glucose 285 H 08/30/22 22:04: POC Glucose 270 H 08/31/22 06:12: POC Glucose 126 H 08/31/22 06:38: Sodium 142, Potassium 3.5, Chloride 102, Carbon Dioxide 36.0 H, Anion Gap 4 L, BUN 20 H, Creatinine 1.12, Estim Creat Clear Calc 69.70, Est GFR (MDRD) Af Amer 85, Est GFR (MDRD) Non-Af 70, BUN/Creatinine Ratio 17.9, Glucose 150 H, Calcium 9.3 08/31/22 11:18: POC Glucose 322 H Rhythm Strip Rhythm Strip: Sinus Rhythm Rate: 64 Ectopy: None Assessment & Plan Assessment/Plan (1) Fall: (2) Generalized weakness: (3) Unable to ambulate: PLAN: Plan Generalized weakness/debility -This is acute on chronic -PT/OT consultation -Patient needs placement for skilled therapy at discharge as family is unable to care for him at home -Case management consulted and case was discussed -Was discharged from [place] approximately 1 week ago DM-2 -A1c down to 7.4 on PCPs most recent documentation from 08/24/2022 -Continue home Levemir 44 units at at bedtime -Continue sliding scale -Accu-Cheks before meals and at bedtime -Cardiac/carb controlled diet Chronic hypoxic respiratory failure -Patient with history of recurrent aspiration pneumonia -Currently respiratory status is at baseline -Continue home oxygen supplementation of 4 L nasal cannula -Continue home albuterol nebulizer History of dysphagia/gastroparesis -Patient has had PEG previously been a Luigi tube and then a recurrent PEG -Per patient's wishes these of all been removed at this time -J-tube recommended however patient declined -Patient remains chronic risk for aspiration and aspiration pneumonias -Patient remains on a carb control/cardiac diet -Monitor closely for any signs of aspiration at this time -Continue home Reglan Peripheral vascular disease -Continue aspirin and Plavix CAD/HTN/HPL -Continue home carvedilol -Continue home amlodipine -Continue home Lasix -Continue home isosorbide mononitrate -Continue home Aldactone -Continue home losartan GERD -Continue Protonix Diabetic neuropathy -Continue Lyrica Chronic diastolic heart failure -Currently compensated -Continue home chronic medications Anxiety/depression -Continue home clonazepam 1 mg p.o. twice daily -Continue home fluoxetine 60 mg daily -Patient has been on Seroquel previously although was admitted for concern for serotonin syndrome so this has been discontinued BPH -Continue home finasteride Morbid obesity -Recommend weight loss -Complicates treatment, prognosis, outcomes DVT prophylaxis -SCDs -Lovenox 40 mg twice daily CODE STATUS -Full code Charges/Coding Visit Charges OBSV E&M: 18741 Subsequent observation care L2
--- NOTE | 2022-08-31 13:09 | CASEMGMT ---
Discharge Elementary School Registrar This board writer sent referral with a message again through [facility]. No answer. This board writer called [facility] mari cell phone and it is going straight to [employer]. This board writer then called [place] and spoke to Darling the commercial loan administrator she was going to look at referral. Plan: [place], Waiting Acceptance Madhuri Morgan Discharge Elementary School Registrar
[2022-08-31 14:00] VITALS: O2SAT 100
[2022-08-31 14:42] VITALS: BP 147/77; PULSE 71; RESP 18; TEMP 37.1; O2SAT 100
--- NOTE | 2022-08-31 14:50 | CASEMGMT ---
Discharge Paraffiner Madhuri messaged through [facility] and has not gotten any response. Madhuri called [place]. Manager News said Darling went home sick and Lucita is unavailable. The [employer] phone also is still going to voicemail. Plan: [place], Waiting Acceptance Madhuri Morgan Discharge Paraffiner
--- NOTE | 2022-08-31 14:54 | CASEMGMT ---
ALICE CM in to discuss [employer] form with patient. RN CM explained GOMEZ form, patient voiced understanding. Pt signed form and filed in chart. Pt provided with a copy of signed GOMEZ form. Patient had no further questions or concerns at this time.
--- NOTE | 2022-08-31 14:55 | CASEMGMT ---
ALICE PHOENIX in to discuss GOMEZ form with patient. RN LIZETT explained GOMEZ form, patient voiced understanding. Pt asked sig other to sign form. She signed form and filed in chart. Pt provided with a copy of signed GOMEZ form. Patient had no further questions or concerns at this time.
--- NOTE | 2022-08-31 15:50 | CASEMGMT ---
Discharge Mold Puller This telegraphic typewriter mechanic got a call back from Lucita at [facility]. Lucita is unaware of this referral and stated she is not suppose to be working with us. This telegraphic typewriter mechanic stated frustration as I sent referral at 1000 and have not been able to get in touch with anyone with an answer. Lucita was going to call Alisson COLLINS about referral. Lucita stated we should hear back by the end of the day. Lucita asked if patient wanted to come to [facility] as the patient called there himself but heard from the she does not want him to go there. This telegraphic typewriter mechanic told Lucita that it is the patients choice and he is stating he wants to go back to [facility]. Will follow up. [facility]: Waiting Acceptance Madhuri Morgan Discharge Mold Puller
[2022-08-31] MEDS: Juven (unflavored) Packet 1 PACKET PO (17:03)
[2022-08-31 17:26] LABS: Bedside Glucose 207 mg/dL (74-106)
[2022-08-31 21:55] VITALS: BP 100/69; PULSE 67; RESP 18; TEMP 36.7; O2SAT 100
[2022-08-31] MEDS: Atorvastatin Calcium 80 MG Tablet PO (22:04)
[2022-08-31] MEDS: Spironolactone 25 MG Tablet PO (22:04)
[2022-08-31] MEDS: 0.9% Saline Lock 10 ML Syringe IV (22:07)
[2022-09-01] VITALS (8 sets, daily range): BP systolic 104–152; BP diastolic 55–87; PULSE 58–69; RESP 18; TEMP 36.6–37.1; O2SAT 95–100
[2022-09-01 00:06] LABS: Bedside Glucose 295 mg/dL (74-106)
[2022-09-01] MEDS: Metoclopramide 5 MG TABLET PO ×2 (06:39→14:50)
[2022-09-01] MEDS: busPIRone 15 MG TABLET PO ×2 (06:39→14:50)
[2022-09-01 07:20] LABS: Bedside Glucose 130 mg/dL (74-106)
--- NOTE | 2022-09-01 09:39 | CASEMGMT ---
Discharge Dough Cutting Machine Operator Patient has been accepted at [place]. Pre-cert has been started 09/01/2022. RICO Chery notified. Plan: [place], [place] Pre-cert Madhuri Morgan Discharge Dough Cutting Machine Operator
--- NOTE | 2022-09-01 09:48 | PN.HOSP_ITS ---
Subjective Subjective No issues overnight. Patient states he had a bowel movement. Feels well. Waiting for insurance approval and acceptance. First choice is [facility]. Objective Data Objective Data Vital Signs: Vital Signs Temp Pulse Resp BP Pulse Ox O2 Del Method O2 Flow Rate 97.9 F 60 18 152/85 H 98 Nasal Cannula 3 09/01/22 06:35 09/01/22 06:35 09/01/22 06:35 09/01/22 06:35 09/01/22 06:35 09/01/22 06:35 09/01/22 06:35 Oxygen Flow Rate (L/min) 3 Oxygen Delivery Method Nasal Cannula Weight: 124.4 kg Body Mass Index (BMI) 39.3 Intake & Output: Intake and Output for Last 24 Hours 08/30/22 08/31/22 09/01/22 23:59 23:59 23:59 Intake Total 860 / 860 500 / 500 Output Total 1600 / 1600 1100 / 1900 1175 / 1175 Balance -740 / -740 -1100 / -1400 -675 / -675 Lab / Micro Data Result Diagrams: 08/30/22 10:30 08/31/22 06:38 Labs: Laboratory Results - last 24 hr 08/31/22 11:18: POC Glucose 322 H 08/31/22 17:00: POC Glucose 207 H 08/31/22 22:01: POC Glucose 295 H 09/01/22 06:38: POC Glucose 130 H Rhythm Strip Rhythm Strip: Sinus Rhythm Rate: 64 Ectopy: None Physical Exam Const alert, oriented x3, no apparent distress and well nourished Constitutional Narrative: Upper middle-aged white male sitting up in bed, appears comfortable nontoxic, ordering breakfast General Appearance: cooperative and well developed HEENT normocephalic, head/scalp atraumatic and moist oral mucous membranes HEENT Narrative: Mallampati 3, dentition is fair for age, no thrush Resp normal respiratory effort, no retractions, no use of accessory muscles and clear to auscultation bilaterally Resp Narrative: Diffusely diminished but clear Auscultation: Negative for crackles, rhonchi or wheezes Cardio regular rate, regular rhythm, S1 normal heart sound, S2 normal heart sound, no murmurs, no rub, no gallops and no clicks GI normal to inspection, nondistended, normoactive bowel sounds, soft to palpation and non-tender Extremity no clubbing, cyanosis or edema Skin Skin Narrative: Small wound left heel Neuro oriented x3, CN's II-XII intact bilaterally, moves all extremities and no focal motor deficits Neuro Narrative: Decreased sensation to light touch Speech: speech normal Assessment & Plan Assessment/Plan (1) Fall: (2) Generalized weakness: (3) Unable to ambulate: PLAN: Plan Generalized weakness/debility -This is acute on chronic -PT/OT following -Patient needs placement for skilled therapy at discharge as family is unable to care for him at home -Case management consulted and case was discussed--> waiting for acceptance and then will have to await pre-CERT -Was discharged from [facility] approximately 1 week ago DM-2 -A1c down to 7.4 on PCPs most recent documentation from 08/24/2022 -Continue home Levemir 44 units at at bedtime -Fasting blood sugars look good however prandial blood sugars are elevated -Add 10 units with meals 3 times daily and continue to assess -Continue sliding scale -Accu-Cheks before meals and at bedtime -Cardiac/carb controlled diet Chronic hypoxic respiratory failure -Patient with history of recurrent aspiration pneumonia -Currently respiratory status is at baseline -Continue home oxygen supplementation of 4 L nasal cannula -Patient remains at baseline -Continue home albuterol nebulizer History of dysphagia/gastroparesis -Patient has had PEG previously been a Luigi tube and then a recurrent PEG -Per patient's wishes these of all been removed at this time -J-tube recommended however patient declined -Patient remains chronic risk for aspiration and aspiration pneumonias -Patient remains on a carb control/cardiac diet -Monitor closely for any signs of aspiration at this time -Continue home Reglan Peripheral vascular disease -Continue aspirin and Plavix CAD/HTN/HPL -Continue home carvedilol -Continue home amlodipine -Continue home Lasix -Continue home isosorbide mononitrate -Continue home Aldactone -Continue home losartan GERD -Continue Protonix Diabetic neuropathy -Continue Lyrica Chronic diastolic heart failure -Currently compensated -Continue home chronic medications Anxiety/depression -Continue home clonazepam 1 mg p.o. twice daily -Continue home fluoxetine 60 mg daily -Patient has been on Seroquel previously although was admitted for concern for serotonin syndrome so this has been discontinued BPH -Continue home finasteride Morbid obesity -Recommend weight loss -Complicates treatment, prognosis, outcomes DVT prophylaxis -SCDs -Lovenox 40 mg twice daily CODE STATUS -Full code Charges/Coding Visit Charges OBSV E&M: 88240 Subsequent observation care L2
--- NOTE | 2022-09-01 10:10 | CASEMGMT ---
Social Work SW in to pt room to notify pt of acceptance at [facility]. SW explained now waiting on insurance authorization. Pt voiced understanding. PLAN: [place], pending precert MINISTERIO Kennedy
[2022-09-01] MEDS: Aspirin E.C. 81 MG Tablet PO (10:20)
[2022-09-01] MEDS: Menthol/Lanolin/Calamine/Znox 113 GM Tube 1 APPLIC TOPICAL (10:20)
[2022-09-01] MEDS: Juven (unflavored) Packet 1 PACKET PO (10:20)
[2022-09-01] MEDS: Carvedilol 25 MG Tablet PO (10:20)
[2022-09-01] MEDS: Heparin Injection (Vial) 5,000 UNIT/ML VIAL 5000 UNIT SC (10:21)
[2022-09-01] MEDS: Losartan Potassium 50 MG Tablet PO (10:21)
[2022-09-01] MEDS: Insulin Glargine-YFGN 100 UNIT/ML Pen 30 UNIT SC (10:21)
[2022-09-01] MEDS: Nystatin Powder 15gm Bottle 1 APPLIC TOPICAL (10:22)
[2022-09-01] MEDS: Furosemide 40 MG Tablet PO (10:22)
[2022-09-01] MEDS: Finasteride 5 MG Tablet PO (10:23)
[2022-09-01] MEDS: amLODIPine 10 MG Tablet PO (10:23)
[2022-09-01] MEDS: FLUoxetine 20 MG Capsule 60 MG PO (10:23)
[2022-09-01] MEDS: Pantoprazole Sodium 20 MG Tablet PO (10:23)
[2022-09-01] MEDS: Clopidogrel Bisulfate 75 MG Tablet PO (10:23)
[2022-09-01] MEDS: Pregabalin 75 MG Capsule PO (10:34)
[2022-09-01] MEDS: Insulin Lispro 100 UNIT/ML INSULN.PEN 10 UNIT SC (11:21)
[2022-09-01] MEDS: Insulin Lispro 100 UNIT/ML INSULN.PEN SC (11:22)
[2022-09-01 11:40] LABS: Bedside Glucose 175 mg/dL (74-106)
--- NOTE | 2022-09-01 13:23 | PCM.DC.SUM ---
Providers Date of Admission: 08/30/22 Date of Discharge: 09/01/22 Primary Care Physician: Dr. Doretha Brown MD Consultations 08/30/22 14:55 Consult: Onc/Wound/fabrication lead Routine Comment: Reason for Consult:: foot wound Reason For Visit: DEBILITY Diagnosis Discharge Diagnosis (1) Fall: Status: Acute Code(s): W19.XXXA - Unspecified fall, initial encounter (2) Generalized weakness: Status: Acute Code(s): R53.1 - Weakness (3) Unable to ambulate: Status: Acute Code(s): R26.2 - Difficulty in walking, not elsewhere classified Plan Generalized weakness/debility -This is acute on chronic -PT/OT following -Patient needs placement for skilled therapy at discharge as family is unable to care for him at home -Case management consulted and case was discussed--> waiting for acceptance and then will have to await pre-CERT -Was discharged from [facility] approximately 1 week ago DM-2 -A1c down to 7.4 on PCPs most recent documentation from 08/24/2022 -Continue home Levemir 44 units at at bedtime -Fasting blood sugars look good however prandial blood sugars are elevated -Add 10 units with meals 3 times daily and continue to assess -Continue sliding scale -Accu-Cheks before meals and at bedtime -Cardiac/carb controlled diet Chronic hypoxic respiratory failure -Patient with history of recurrent aspiration pneumonia -Currently respiratory status is at baseline -Continue home oxygen supplementation of 4 L nasal cannula -Patient remains at baseline -Continue home albuterol nebulizer History of dysphagia/gastroparesis -Patient has had PEG previously been a Luigi tube and then a recurrent PEG -Per patient's wishes these of all been removed at this time -J-tube recommended however patient declined -Patient remains chronic risk for aspiration and aspiration pneumonias -Patient remains on a carb control/cardiac diet -Monitor closely for any signs of aspiration at this time -Continue home Reglan Peripheral vascular disease -Continue aspirin and Plavix CAD/HTN/HPL -Continue home carvedilol -Continue home amlodipine -Continue home Lasix -Continue home isosorbide mononitrate -Continue home Aldactone -Continue home losartan GERD -Continue Protonix Diabetic neuropathy -Continue Lyrica Chronic diastolic heart failure -Currently compensated -Continue home chronic medications Anxiety/depression -Continue home clonazepam 1 mg p.o. twice daily -Continue home fluoxetine 60 mg daily -Patient has been on Seroquel previously although was admitted for concern for serotonin syndrome so this has been discontinued BPH -Continue home finasteride Morbid obesity -Recommend weight loss -Complicates treatment, prognosis, outcomes DVT prophylaxis -SCDs -Lovenox 40 mg twice daily CODE STATUS -Full code Medications at Discharge Home Medications acetaminophen 500 mg tablet 1,000 mg PO QHS PRN PRN Pain 1-10 Or Fever 02/11/21 aspirin 81 mg tablet,delayed release (Adult Aspirin Regimen) 81 mg PO DAILY heart health 11/05/21 spironolactone 25 mg tablet 25 mg PO QHS diuretic 11/08/21 peg [id number] 1 %-0.2 %-0.2 % eye drops (Artificial Tears ([id number])) 2 drp EACH EYE Q1H PRN DRY EYES #0 mL 11/14/21 nitroglycerin 0.4 mg sublingual tablet 0.4 mg sublingual Q5M PRN Chest Pain #30 tabs 11/25/21 atorvastatin 80 mg tablet 80 mg PO QHS cholesterol #90 tabs 01/09/22 finasteride 5 mg tablet 5 mg PO DAILY prostate #90 tabs 01/09/22 furosemide 40 mg tablet 40 mg PO DAILY fluid #90 tabs 01/09/22 albuterol sulfate 90 mcg/actuation aerosol inhaler 2 puff inhalation Q4H PRN shortness of breath or wheezing #8.5 grams 02/04/22 pantoprazole 20 mg tablet,delayed release 20 mg PO DAILY gerd 02/04/22 carvedilol 12.5 mg tablet 12.5 mg PO BID heart #180 tabs 02/05/22 losartan 50 mg tablet 50 mg PO DAILY bp 03/21/22 clopidogrel 75 mg tablet 75 mg PO DAILY blood thinner #90 tabs 03/30/22 isosorbide mononitrate 30 mg tablet,extended release 24 hr 30 mg PO DAILY heart #90 tabs 03/30/22 loratadine 10 mg tablet (Allergy Relief (loratadine)) 10 mg PO DAILY allergies 05/21/22 buspirone 7.5 mg tablet 15 mg PO TID mood #90 tabs 07/03/22 clonazepam 1 mg tablet 1 mg PO BID PRN PRN anxiety #14 tabs 07/03/22 fluoxetine 20 mg capsule 60 mg PO DAILY #0 caps 07/03/22 gauze bandage 4 X 4 (Bordered Gauze) #14 ea 07/03/22 nystatin 100,000 unit/gram topical powder (Nyamyc) 1 applic topical BID #0 grams 07/03/22 walker (Ultra-Light Rollator misc) #1 ea 07/21/22 metoclopramide HCl 5 mg tablet 5 mg PO TID #90 tabs 07/31/22 insulin lispro 100 unit/mL subcutaneous pen sliding scale dose subcut ACHS Check with primary doctor 08/12/22 pregabalin 75 mg capsule (Lyrica) 75 mg PO BID Check with primary doctor 08/12/22 amlodipine 5 mg tablet 10 mg PO DAILY #0 tabs 08/14/22 carvedilol 12.5 mg tablet 25 mg PO BID #0 tabs 08/14/22 arginine 7 gram-glutam 7 gram-CaHMB 1.5 xlil-zlkri-qd-min oral pwd pkt (Aubrey (with collagen)) 1 packet PO BIDCM #0 ea 09/01/22 insulin glargine-yfgn 100 unit/mL (3 mL) subcutaneous pen 30 unit (0.3 mL) subcut BID #0 mL 09/01/22 insulin lispro 100 unit/mL subcutaneous pen (Humalog KwikPen (U-100) Insulin) 10 unit (0.1 mL) subcut TIDAC #0 mL 09/01/22 menthol 0.44 %-zinc oxide 20.6 % topical ointment (Calmoseptine) 1 applic topical BID #0 grams 09/01/22 polyethylene glycol 3350 17 gram oral powder packet 17 g PO DAILY #0 ea 09/01/22 Hospital Course Operations None Procedures None Summary of Care Provided Minutes Spent on Discharge: 38 Hospital Course: Mr. Linad is a 62-year-old white male who is quite familiar to this institution who presented to the emergency department was prehospital on 08/30/2022 after being brought in by the squad when he was found prone on the floor in his living room in front of his recliner. The patient per report, had been home from the senior living for approximately 1 week. He was discharged from here on 08/14/2022 for rehab services secondary to debility. The patient remains to have severe debility and is needing help with all of his activities. His girlfriend, with whom he lives, reports that he is not very active at home. Work-up in the emergency room included labs-CBC was remarkable for hemoglobin of 11.9, chemistry panel was remarkable for BUN of 28, creatinine of 1.48, and a glucose of 360.? Urinalysis was unremarkable.? Patient's chest x-ray showed cardiomegaly with left basilar airspace disease which may represent atelectasis or possible pneumonic infiltrate.? Patient's pulse ox was above 90% on 4 L-it appears from his medical record that he wears 4 L at all times. He was admitted via observation status to the medical surgical floor for acute debility and was evaluated by Physical and Occupational Therapy during his hospital course. They did recommend ongoing inpatient therapy as he remains considerably weak. I did discuss motivation and the importance of participating and performing ongoing therapy services even after discharge from a skilled facility to get back to his baseline. We did make some minor adjustments to his insulin regimen as he was placed on 30 units twice daily of basal insulin and we added 10 units 3 times daily with meals. He remained stable on his 4 L nasal cannula and all of his other chronic medical conditions remained stable as well. The patient was accepted by [facility] and pre-CERT was obtained from his insurance company on 09/01/2022. As noted he had some mild CELESTE on presentation and this resolved back to his normal renal function at the time of discharge. He was discharged in stable condition at this time. Discharge diagnoses: Generalized weakness Debility DM-2 Chronic hypoxic respiratory failure Dysphagia Gastroparesis PVD CAD Hypertension Hyperlipidemia GERD Diabetic neuropathy Chronic diastolic heart failure Anxiety Depression BP EH Morbid obesity Physical Exam Const alert, oriented x3, no apparent distress and well nourished Constitutional Narrative: Upper middle-aged white male sitting up in bed, appears comfortable nontoxic, ordering breakfast General Appearance: cooperative, comfortable, well kempt and well developed Orientation / Consciousness: awake, oriented to person and oriented to place Exam Limitations: no limitations Nutritional Appearance: obese HEENT normocephalic, head/scalp atraumatic and moist oral mucous membranes HEENT Narrative: Mallampati 3, no thrush, mild to moderate hearing loss Eyes PERRL, EOMs intact bilaterally and conjunctivae normal Eyes Narrative: No scleral icterus Neck no lymphadenopathy, supple and no JVD Neck Narrative: Trachea midline, no thyroid enlargement Resp normal respiratory effort, no retractions, no use of accessory muscles and clear to auscultation bilaterally Resp Narrative: Diffusely diminished but clear Auscultation: Negative for crackles, rales, rhonchi or wheezes Cardio regular rate, regular rhythm, S1 normal heart sound, S2 normal heart sound, no murmurs, no rub, no gallops and no clicks GI normal to inspection, nondistended, normoactive bowel sounds, soft to palpation, non-tender and non-distended Extremity no clubbing, cyanosis or edema Extremity Narrative: Patient has a small open area over his left heel that does not appear infected, this area is only 2 cm in diameter area is nonreddened Skin No no wounds, skin turgor normal, no jaundice, no petechiae and no mottling Skin Narrative: Small wound left heel Neuro oriented x3, CN's II-XII intact bilaterally, moves all extremities, no focal motor deficits and No no sensory deficits noted Neuro Narrative: Decreased sensation to light touch bilateral distal lower extremities Sensorium / Orientation: awake, alert, oriented to person and oriented to place Speech: speech normal Psych affect normal Psych Narrative: Very pleasant and appropriately interactive Weight / BMI Weight Weight: 124.4 kg Body Mass Index (BMI) 39.3 ABG / Lab / Microbiology Data Result Diagrams: 08/30/22 10:30 08/31/22 06:38 Laboratory: Laboratory Results - last 24 hr 08/31/22 17:00: POC Glucose 207 H 08/31/22 22:01: POC Glucose 295 H 09/01/22 06:38: POC Glucose 130 H 09/01/22 11:19: POC Glucose 175 H Meaningful Use Info Meaningful Use Diagnoses (Choose all that apply): None applicable Discharge Plan Admission Admit Date/Time: 08/30/22 13:59 Primary Reason for Your Visit: Debility Attending Provider: Alicia Larkin Primary Care Provider: Doretha Brown Consulting Providers: Rubio Miller Discharge Orders/Prescriptions Prescriptions: New polyethylene glycol 3350 17 gram Powder In Packet 17 g PO DAILY Qty: 0 0RF Rx Instructions: Hold for diarrhea-goal daily stool insulin lispro [Humalog KwikPen Insulin] 100 unit/mL Insulin Pen 10 unit subcut TIDAC Qty: 0 0RF menthol-zinc oxide [Calmoseptine] 0.44-20.6 % Ointment 1 applic topical BID Qty: 0 0RF Protocol: *Topical Application Instructions APPLICATION INSTRUCTIONS: affected areas Aubrey (with collagen) 7-7-1.5 gram Powder In Packet 1 packet PO BIDCM Qty: 0 0RF insulin glargine-yfgn 100 unit/mL (3 mL) Insulin Pen 30 unit subcut BID Qty: 0 0RF Continued aspirin [Adult Aspirin Regimen] 81 mg tablet,delayed release (DR/EC) 81 mg PO DAILY atorvastatin 80 mg tablet 80 mg PO QHS Qty: 90 2RF furosemide 40 mg tablet 40 mg PO DAILY Qty: 90 3RF finasteride 5 mg tablet 5 mg PO DAILY Qty: 90 3RF pantoprazole 20 mg tablet,delayed release (DR/EC) 20 mg PO DAILY albuterol sulfate 90 mcg/actuation HFA aerosol inhaler 2 puff inhalation Q4H PRN (Reason: shortness of breath or wheezing) Qty: 8.5 3RF Rx Instructions: administer with spacer carvedilol 12.5 mg tablet 12.5 mg PO BID Qty: 180 3RF loratadine [Allergy Relief (loratadine)] 10 mg tablet 10 mg PO DAILY (DME) Ultra-Light Rollator Misc See Rx Instructions .Route Qty: 1 2RF Rx Instructions: As directed acetaminophen 500 MG tablet 1,000 mg PO QHS PRN PRN (Reason: Pain 1-10 Or Fever) spironolactone 25 mg tablet 25 mg PO QHS Artificial Tears(bo-ojgf-qhlt) 1-0.2-0.2 % Drops 2 drp EACH EYE Q1H PRN (Reason: DRY EYES) Qty: 0 0RF losartan 50 mg tablet 50 mg PO DAILY clonazepam 1 mg Tablet 1 mg PO BID PRN PRN (Reason: anxiety) Qty: 14 0RF nystatin [Nyamyc] 100,000 unit/gram Powder 1 applic topical BID Qty: 0 0RF Protocol: *Topical Application Instructions APPLICATION INSTRUCTIONS: to groin fluoxetine 20 mg Capsule 60 mg PO DAILY Qty: 0 0RF buspirone 7.5 mg tablet 15 mg PO TID Qty: 90 2RF (DME) gauze bandage [Bordered Gauze] 4 X 4 bandage See Rx Instructions .ROUTE .MEDSUPPLY Qty: 14 2RF Rx Instructions: Daily cleanse left foot wound with soap and water, dry and apply Betadine solution and apply clean dressing pregabalin [Lyrica] 75 mg capsule 75 mg PO BID insulin lispro 100 unit/mL insulin pen subcut ACHS Label Comments: INJECT subcuaneously 8-16 units 5 (FIVE) times daily per sliding scale.] carvedilol 12.5 mg Tablet 25 mg PO BID Qty: 0 0RF amlodipine 5 mg Tablet 10 mg PO DAILY Qty: 0 0RF nitroglycerin 0.4 mg tablet, sublingual 0.4 mg SL Q5M PRN (Reason: Chest Pain) Qty: 30 0RF clopidogrel 75 mg tablet 75 mg PO DAILY Qty: 90 3RF isosorbide mononitrate 30 mg tablet extended release 24 hr 30 mg PO DAILY Qty: 90 3RF metoclopramide HCl 5 mg tablet 5 mg PO TID Qty: 90 2RF Discontinued insulin detemir U-100 100 unit/mL (3 mL) insulin pen 44 unit subcut QHS Qty: 15 1RF Referrals / Follow Up: Doretha Brown MD [Primary Care Provider] - Within 1 Month Disposition Disposition (needs filled in before D/C Order can be placed): [facility] Charges/Coding Visit Charges OBSV E&M: 98714 Observation care discharge
--- NOTE | 2022-09-01 13:28 | CASEMGMT ---
Discharge Audio Visual Production Specialist Madhuri villanueva/grace religious assistant got a call from Lucita at [facility]. Pre-cert has been obtained. [place] Chery notified. Plan: [facility], When medically ready. Madhuri Morgan Discharge Audio Visual Production Specialist
--- NOTE | 2022-09-01 13:30 | CASEMGMT ---
Social Work SW in to pt room to notify pt that insurance authorization was obtained. Pt happy, voiced understanding. SW asked if pt would like SW to call SO, She. Pt declined, stated was on the phone with Gabriela now. Gabriela spoke out from speaker phone and voiced understanding as well. Sw informed pt would need covid test then would be sent to [facility] via [facility]. Pt understanding. PLAN: [place], today MINISTERIO Kennedy
--- NOTE | 2022-09-01 13:41 | PHA.DC.MR ---
Pharmacy Service has performed discharge medication reconciliation for this patient. The patient's discharge medication list was reviewed for discrepancies and discrepancies were resolved. Home Medications acetaminophen 500 mg tablet 1,000 mg PO QHS PRN PRN Pain 1-10 Or Fever 02/11/21 aspirin 81 mg tablet,delayed release (Adult Aspirin Regimen) 81 mg PO DAILY heart health 11/05/21 spironolactone 25 mg tablet 25 mg PO QHS diuretic 11/08/21 peg [id number] 1 %-0.2 %-0.2 % eye drops (Artificial Tears ([id number])) 2 drp EACH EYE Q1H PRN DRY EYES #0 mL 11/14/21 nitroglycerin 0.4 mg sublingual tablet 0.4 mg sublingual Q5M PRN Chest Pain #30 tabs 11/25/21 atorvastatin 80 mg tablet 80 mg PO QHS cholesterol #90 tabs 01/09/22 finasteride 5 mg tablet 5 mg PO DAILY prostate #90 tabs 01/09/22 furosemide 40 mg tablet 40 mg PO DAILY fluid #90 tabs 01/09/22 albuterol sulfate 90 mcg/actuation aerosol inhaler 2 puff inhalation Q4H PRN shortness of breath or wheezing #8.5 grams 02/04/22 pantoprazole 20 mg tablet,delayed release 20 mg PO DAILY gerd 02/04/22 carvedilol 12.5 mg tablet 12.5 mg PO BID heart #180 tabs 02/05/22 losartan 50 mg tablet 50 mg PO DAILY bp 03/21/22 clopidogrel 75 mg tablet 75 mg PO DAILY blood thinner #90 tabs 03/30/22 isosorbide mononitrate 30 mg tablet,extended release 24 hr 30 mg PO DAILY heart #90 tabs 03/30/22 loratadine 10 mg tablet (Allergy Relief (loratadine)) 10 mg PO DAILY allergies 05/21/22 buspirone 7.5 mg tablet 15 mg PO TID mood #90 tabs 07/03/22 clonazepam 1 mg tablet 1 mg PO BID PRN PRN anxiety #14 tabs 07/03/22 fluoxetine 20 mg capsule 60 mg PO DAILY #0 caps 07/03/22 gauze bandage 4 X 4 (Bordered Gauze) #14 ea 07/03/22 nystatin 100,000 unit/gram topical powder (Nyamyc) 1 applic topical BID #0 grams 07/03/22 walker (Ultra-Light Rollator misc) #1 ea 07/21/22 metoclopramide HCl 5 mg tablet 5 mg PO TID #90 tabs 07/31/22 insulin lispro 100 unit/mL subcutaneous pen sliding scale dose subcut ACHS Check with primary doctor 08/12/22 pregabalin 75 mg capsule (Lyrica) 75 mg PO BID Check with primary doctor 08/12/22 amlodipine 5 mg tablet 10 mg PO DAILY #0 tabs 08/14/22 carvedilol 12.5 mg tablet 25 mg PO BID #0 tabs 08/14/22 arginine 7 gram-glutam 7 gram-CaHMB 1.5 [id number]-wr-[id number] oral pwd pkt (Aubrey (with collagen)) 1 packet PO BIDCM #0 ea 09/01/22 insulin glargine-yfgn 100 unit/mL (3 mL) subcutaneous pen 30 unit (0.3 mL) subcut BID #0 mL 09/01/22 insulin lispro 100 unit/mL subcutaneous pen (Humalog KwikPen (U-100) Insulin) 10 unit (0.1 mL) subcut TIDAC #0 mL 09/01/22 menthol 0.44 %-zinc oxide 20.6 % topical ointment (Calmoseptine) 1 applic topical BID #0 grams 09/01/22 polyethylene glycol 3350 17 gram oral powder packet 17 g PO DAILY #0 ea 09/01/22
--- NOTE | 2022-09-01 13:52 | TREXTCAR_ITS ---
Diet Diet Order/Speech Therapy: 08/30/22 14:55 Diet: Consistent Carb - Calorie Controlled Food consistency:: Regular Liquid Consistency:: Regular/Thin Is pt able to select menu?: Yes How many daily calories?: 1800 calorie Routine Orders/Code Status Suppository Frequency: Daily PRN O2 Liters per Minute: 4 O2 Frequency: Continuous Keep PO Greater than or Equal to (%): 92 Routine Lab Work: CBC (every other week) and BMP (in one week then every other week if stable) Code Status: Full Code Wound(s) left heel: Wound Type: Neuropathic/Diabetic Foot Ulcer Dressing Change: Adamaris Suggestions for Active Care Change Position every (hours): 2 Therapies Physical Therapy: Eval and Treat Occupational Therapy: Eval and Treat Speech Therapy: Eval and Treat Problem/Diagnosis (1) Fall: Status: Acute Code(s): W19.XXXA - Unspecified fall, initial encounter (2) Generalized weakness: Status: Acute Code(s): R53.1 - Weakness (3) Unable to ambulate: Status: Acute Code(s): R26.2 - Difficulty in walking, not elsewhere classified Allergies/Procedures Done in Hospital Allergies allopurinol Adverse Reaction (Verified 08/24/22 13:30) Vomiting Influenza Virus Vaccines Adverse Reaction (Verified 08/24/22 13:30) Vomiting pneumococcal vaccine Adverse Reaction (Verified 08/24/22 13:30) Vomiting Procedures: None Type of Care/Length of Stay Estimated LOS: Convalescent Care Less Than 30 days Type of Care Needed: Skilled Rehab Potential: Fair Prognosis: Fair Additional Orders/Day of Discharge Day of Discharge: 09/01/22 Dietary and Speech Recommendations Dietitian Recommendations/Changes: RD will adjust diet to 2000kcal CCD diet. RD will order Aubrey BID with medpass. Discharge Plan Admission Admit Date/Time: 08/30/22 13:59 Primary Reason for Your Visit: Debility Attending Provider: Alicia Larkin Primary Care Provider: Doretha Brown Consulting Providers: Rubio Miller Discharge Orders/Prescriptions Prescriptions: New polyethylene glycol 3350 17 gram Powder In Packet 17 g PO DAILY Qty: 0 0RF Rx Instructions: Hold for diarrhea-goal daily stool insulin lispro [Humalog KwikPen Insulin] 100 unit/mL Insulin Pen 10 unit subcut TIDAC Qty: 0 0RF menthol-zinc oxide [Calmoseptine] 0.44-20.6 % Ointment 1 applic topical BID Qty: 0 0RF Protocol: *Topical Application Instructions APPLICATION INSTRUCTIONS: affected areas Aubrey (with collagen) 7-7-1.5 gram Powder In Packet 1 packet PO BIDCM Qty: 0 0RF insulin glargine-yfgn 100 unit/mL (3 mL) Insulin Pen 30 unit subcut BID Qty: 0 0RF Continued aspirin [Adult Aspirin Regimen] 81 mg tablet,delayed release (DR/EC) 81 mg PO DAILY atorvastatin 80 mg tablet 80 mg PO QHS Qty: 90 2RF furosemide 40 mg tablet 40 mg PO DAILY Qty: 90 3RF finasteride 5 mg tablet 5 mg PO DAILY Qty: 90 3RF pantoprazole 20 mg tablet,delayed release (DR/EC) 20 mg PO DAILY albuterol sulfate 90 mcg/actuation HFA aerosol inhaler 2 puff inhalation Q4H PRN (Reason: shortness of breath or wheezing) Qty: 8.5 3RF Rx Instructions: administer with spacer carvedilol 12.5 mg tablet 12.5 mg PO BID Qty: 180 3RF loratadine [Allergy Relief (loratadine)] 10 mg tablet 10 mg PO DAILY (DME) Ultra-Light Rollator Misc See Rx Instructions .Route Qty: 1 2RF Rx Instructions: As directed acetaminophen 500 MG tablet 1,000 mg PO QHS PRN PRN (Reason: Pain 1-10 Or Fever) spironolactone 25 mg tablet 25 mg PO QHS Artificial Tears(ur-xdeo-jqjw) 1-0.2-0.2 % Drops 2 drp EACH EYE Q1H PRN (Reason: DRY EYES) Qty: 0 0RF losartan 50 mg tablet 50 mg PO DAILY clonazepam 1 mg Tablet 1 mg PO BID PRN PRN (Reason: anxiety) Qty: 14 0RF nystatin [Nyamyc] 100,000 unit/gram Powder 1 applic topical BID Qty: 0 0RF Protocol: *Topical Application Instructions APPLICATION INSTRUCTIONS: to groin fluoxetine 20 mg Capsule 60 mg PO DAILY Qty: 0 0RF buspirone 7.5 mg tablet 15 mg PO TID Qty: 90 2RF (DME) gauze bandage [Bordered Gauze] 4 X 4 bandage See Rx Instructions .ROUTE .MEDSUPPLY Qty: 14 2RF Rx Instructions: Daily cleanse left foot wound with soap and water, dry and apply Betadine solution and apply clean dressing pregabalin [Lyrica] 75 mg capsule 75 mg PO BID insulin lispro 100 unit/mL insulin pen subcut ACHS Label Comments: INJECT subcuaneously 8-16 units 5 (FIVE) times daily per sliding scale.] carvedilol 12.5 mg Tablet 25 mg PO BID Qty: 0 0RF amlodipine 5 mg Tablet 10 mg PO DAILY Qty: 0 0RF nitroglycerin 0.4 mg tablet, sublingual 0.4 mg SL Q5M PRN (Reason: Chest Pain) Qty: 30 0RF clopidogrel 75 mg tablet 75 mg PO DAILY Qty: 90 3RF isosorbide mononitrate 30 mg tablet extended release 24 hr 30 mg PO DAILY Qty: 90 3RF metoclopramide HCl 5 mg tablet 5 mg PO TID Qty: 90 2RF Discontinued insulin detemir U-100 100 unit/mL (3 mL) insulin pen 44 unit subcut QHS Qty: 15 1RF Referrals / Follow Up: Doretha Brown MD [Primary Care Provider] - Within 1 Month Disposition Disposition (needs filled in before D/C Order can be placed): Senior Living Facility
--- NOTE | 2022-09-01 15:12 | CASEMGMT ---
Social Work SW completed full PASSR. Set up cot transportation via [facility] for 4:00pm. SW notified pt, nurse and [facility] of transport time. Pt declined SW to notify others of discharge plan as SO, She was in room when pt notified. SW faxed discharge orders, including negative covid result and Full PASSR to [facility] via [facility]. Placed copies of orders in pt chart and sent originals with pt in envelope. Disposition: [facility], for skilled, convalescent level of care MINISTERIO Kennedy
== END 2022-09-01 16:42 | disposition skilled nursing facility (03) ==
LOC: ED 11:44 → MS3 15:47
PROVIDERS: Admitting Provider Internal Medicine; Emergency Provider Emergency Medicine; PCP Internal Medicine; Visit Provider Internal Medicine
DX: R53.1 Weakness (principal); E11.51 Type 2 diabetes mellitus with diabetic peripheral angiopathy without gangrene; J44.9 Chronic obstructive pulmonary disease, unspecified; I13.0 Hypertensive heart and chronic kidney disease with heart failure and stage 1 through stage 4 chronic kidney disease, or unspecified chronic kidney disease; I50.32 Chronic diastolic (congestive) heart failure; E11.43 Type 2 diabetes mellitus with diabetic autonomic (poly)neuropathy; E11.42 Type 2 diabetes mellitus with diabetic polyneuropathy; E11.22 Type 2 diabetes mellitus with diabetic chronic kidney disease; J96.11 Chronic respiratory failure with hypoxia; E66.01 Morbid (severe) obesity due to excess calories; Z79.4 Long term (current) use of insulin; N18.31 Chronic kidney disease, stage 3a; Z68.39 Body mass index [BMI] 39.0-39.9, adult; Z79.82 Long term (current) use of aspirin; K21.9 Gastro-esophageal reflux disease without esophagitis; F32.A Depression, unspecified; E78.00 Pure hypercholesterolemia, unspecified; R26.2 Difficulty in walking, not elsewhere classified; L89.309 Pressure ulcer of unspecified buttock, unspecified stage; R53.81 Other malaise; I25.10 Atherosclerotic heart disease of native coronary artery without angina pectoris; F41.9 Anxiety disorder, unspecified; Z79.02 Long term (current) use of antithrombotics/antiplatelets; Z99.81 Dependence on supplemental oxygen; I25.2 Old myocardial infarction; Z95.0 Presence of cardiac pacemaker; Z91.81 History of falling; N40.0 Benign prostatic hyperplasia without lower urinary tract symptoms
CPT/HCPCS: 71045; 80048; 81001; 82962; 85025; 87426; 93005; 96360; 96372; 97116; 97162; 97166; 97530; 97535; 97802; 99218; 99285; J7040; A4216; G0378

== ENCOUNTER 2022-09-22 14:45 | Outpatient (RCR) | payer MEDICARE, MEDICAID, SELFPAY ==
[2022-08-29 01:26] VITALS: BP 151/71; PULSE 76; RESP 22; TEMP 36.4; BMI 41.1
[2022-09-09 12:57] VITALS: BP 114/74; PULSE 85; RESP 20; TEMP 36.5; BMI 41.1
--- NOTE | 2022-09-09 16:11 | PN.PCM_ITS ---
History of Present Illness Date of Service: 09/09/22 Chief Complaint: left foot ulcer History of Wound: This 62-year-old male with significant past medical history of diabetes with neuropathy peripheral vascular disease, debility, prior PEG tube (not current), arrhythmia, restrictive airway disease, history of heart failure and cardiac stent placement, hypertension, GERD, sleep apnea and mood disorder is following up today from the hospital for a left foot ulcer. He relates the onset of the ulcer was 05-13-2022 after a blister occurred. He was treated for cellulitis with IV and then oral antibiotics during recent [facility] admission. He was referred to see vascular specialist after having abnormal arterial findings in which he did not proceed forward with yet. He has trouble with debility and difficulty walking in the outpatient setting and was recently in a senior living facility the past month undergoing rehab. That is why he has not had epi fix applied. Patient fell 08/30/22 and was admitted for weakness and his family inability to care for him. He was transferred on 09/01/22 to [facility] for rehab. Wound care is Santyl nickel thickness daily to the left lateral plantar foot ulcer. His wound bed is improving and he would benefit from the other applicatio ns of Epifix (he has had 3 applications). Progress of Wound: Left lateral plantar ulcer bed has less fibrous tissue present. There area now areas that are beefy pink. Objective Data Objective Data Vital Signs: Vital Signs Temp Pulse Resp BP O2 Del Method O2 Flow Rate 97.7 F L 85 20 H 114/74 Nasal Cannula 3 09/09/22 12:57 09/09/22 12:57 09/09/22 12:57 09/09/22 12:57 09/09/22 12:57 09/09/22 12:57 Oxygen Flow Rate (L/min) 3 Oxygen Delivery Method Nasal Cannula Weight: 287 lb Body Mass Index (BMI) 41.1 Charges/Coding Procedures Integumentary 111xxx-113xx: 13181 Gabriela subq tissue 20 sq cm/< Physical Exam Const alert and no apparent distress HEENT normocephalic Resp normal respiratory effort Cardio regular rate and regular rhythm Extremity normal to inspection Extremity Narrative: +1 edema left leg and foot. Skin Wound Narrative: Left lateral plantar ulcer bed has less fibrous tissue present. There area now areas that are beefy pink. Neuro CN's II-XII intact bilaterally Psych affect normal Debridement Note Debridement Note Wound debrided: lateral heel ulcer Laterality: Left Type of Debridement: Excisional debridement Anesthesia Used: 5% Lidocaine Gel Depth: Down to and including healthy tissue and in the subcutaneous layer Percentage of wound debrided: 100 Instrument Used: 5mm curette Tissue Removed: Devitalized tissue and slough Severity: Fat Layer Exposed Amount of bleeding with debridement: Mild Bleeding Controlled with: Compression and gauze Patient tolerated procedure: Patient tolerated procedure well Post-Debridement Measurements and Additional Note: Post-Debridement Measurements/Treatment - Nurse 1 - General Ulcer Assessment Start: 09/09/22 12:57 Freq: Status: Active Protocol: MAGDY.Voter [email or web address] Activity Type Activity Date Activity User E-sign Co-sign Detail Recorded Client Recorded Date Recorded By Document 09/09/22 12:57 [facility] [id number] 09/09/22 13:08 [facility] 09/09/22 12:57 - Today's Visit Information Type of service Follow-up Visit (Physician/DAMPENER ) Arrival Mode Wheelchair Transfer Assistance Manual Transfer Assist (Other) 2 Accompanied by Patient Identification Verified (Name & Yes ) Patient Requires Transmission-Based No Precautions Finger Stick Blood Sugar(mg/dl) (if 99 indicated): Blood Sugar Stated by Patient Height and Weight Body Mass Index (BMI) 41.1 BMI Classification Obese Vital Signs Temperature (97.8 F-99.1 F) 97.7 F L Temperature Source Temporal Pulse Rate (60-100) 85 Pulse Location Monitor Respiratory Rate (12-18) 20 H Respiratory rate source Observation Oxygen Delivery Method Nasal Cannula O2 L/MIN (L/min) 3 Blood Pressure (90/60-120/80) 114/74 Blood Pressure Mean (mm Hg) 87 Source Monitor Position Sitting Blood Pressure Location Left Arm History Since Last Visit- (Skip if this is Patient's initial visit) Have you changed medications since your No last visit? Any new allergies or adverse reactions No Had a fall/change in ADL's that may Yes increase risk of falls Signs or symptoms of abuse and/or No neglect since last visit Have you been in the hospital since your Yes last visit? Has dressing in place as prescribed No Has compression in place as prescribed Yes Has offloadiing in place as prescribed Yes Experienced any changes in pain level or No management Left Footwear Removable Cast Walker/Walking Boot Right Footwear Regular Shoe Pain Scale: 0-10 Numeric Is Patient Pain Free? Yes WC - Nurse 1 - General Ulcer Measurement Start: 09/09/22 12:57 Freq: Status: Active Protocol: Activity Type Activity Date Activity User E-sign Co-sign Detail Recorded Client Recorded Date Recorded By Document 09/09/22 12:57 [facility] [id number] 09/09/22 13:08 [facility] 09/09/22 12:57 Wound Center Nurse 1 #1- L HEEL -Combined with other wound No -Current Size (cm) - Length 0.9 -Current Size (cm) - Width 1.1 -Current Size (cm) - Depth 0.2 -Total Square Cm 0.99 -Date of Last Picture (Recall this 09/09/22 field) -Photo Taken Yes -Epithelialization None Present -Tunneling No -Undermining/Tunneling No -Circular Undermining No -Exudate Amt Small -Exudate Type Serous -Wound Margin Distinct, Outline Attached -Granulation Amt Small (1-33%) -Granulation Quality Red -Slough/Fibrin Yes -Necrosis Amt Medium (34-66%) -Necrotic Tissue Type Adherent Slough -Texture (Sammi-wound Skin Appearance) Assessed, Scarring -Moisture (Sammi-wound Skin Appearance) Assessed -Color (Sammi-wound Skin Appearance) Assessed -Temperature (Sammi-wound Skin No Abnormality Appearance) (Pt Warm) -Tenderness on Palpation (Sammi-wound No Skin Appearance) -Ulcer Cleansing Rinsed/ Irrigated with Saline -Foul Odor after Cleansing No -Anesthetic Used 5% Lidocaine Gel WC - Nurse 2 - General Ulcer CM Notes Start: 09/09/22 12:57 Freq: Status: Active Protocol: Activity Type Activity Date Activity User E-sign Co-sign Detail Recorded Client Recorded Date Recorded By Document 09/09/22 13:24 [id number] 09/09/22 13:24 09/09/22 13:24 Wound Center Nurse 2 -Correct Patient Yes -Correct Side, Site, Position Yes -Correct Procedure Yes -Procedure Performed Yes -Type of Procedure Debridement -Clinical Debridement Subcutaneous -Tissue Removed Subcutaneous -Post Debridement (cm) - Length 1.0 -Post Debridement (cm) - Width 1.4 -Post Debridement (cm) - Depth 0.4 -Total Square (Post) (cm) 1.40 -Area of Debridement (cm) - Length 1.0 -Area of Debridement (cm) - Width 1.4 -Total Square (Area) (cm) 1.40 -Tunneling No -Undermining/Tunneling No -Circular Undermining No -Wound/Ulcer Outcome Not Healed -Ulcer Cleansing Rinsed/ Irrigated with Saline -Foul Odor after Cleansing No -Bioengineered Tissue No -Bleeding Controlled with Pressure -Treatment Response Procedure Tolerated Well -Offloading Yes -Type of Offloading Camwalker -Debridement - Subq, 1st 20sq cm Yes Pain Scale: 0-10 Numeric Is Patient Pain Free? Yes WC - Nurse 3 - General Ulcer D/C NN Start: 09/09/22 12:57 Freq: Status: Active Protocol: Activity Type Activity Date Activity User E-sign Co-sign Detail Recorded Client Recorded Date Recorded By Document 09/09/22 13:34 DL [id number] 09/09/22 13:40 DL 09/09/22 13:34 Wound Care Nurse 3 #1- L HEEL -Ulcer Cleansing Rinsed/ Irrigated with Saline -Foul Odor after Cleansing No -Other Dressing hydrogel -Primary Dressing Covered/Secured with Dry Gauze & Roll Gauze, Secured with Tape -Other Covering Padding/ Nurses Hat Left -Tubular Bandage Single Layer -Size of Tubigrip Used Size E -Size E ($) 1 Right -Tubular Bandage Single Layer -Size of Tubigrip Used Size D -Size D ($) 2 -Other extra sent Treatment Response Procedure Tolerated Well Pain Scale: 0-10 Numeric Is Patient Pain Free? Yes WC - Visit Discharge Discharge Condition Stable Ambulatory Status Wheelchair Transportation [facility] Type Reading Assistant Care Facility Orders Sent Yes Assessment/Plan Assessment/Plan (1) Diabetic ulcer of left foot: CODE(S): E11.621 - Type 2 diabetes mellitus with foot ulcer; L97.529 - Non-pressure chronic ulcer of other part of left foot with unspecified severity (2) Venous insufficiency (chronic) (peripheral): CODE(S): I87.2 - Venous insufficiency (chronic) (peripheral) (3) Localized edema: CODE(S): R60.0 - Localized edema (4) Type 2 diabetes mellitus with diabetic polyneuropathy: CODE(S): E11.42 - Type 2 diabetes mellitus with diabetic polyneuropathy (5) Type 2 diabetes mellitus with foot ulcer: CODE(S): E11.621 - Type 2 diabetes mellitus with foot ulcer; L97.509 - Non-pressure chronic ulcer of other part of unspecified foot with unspecified severity (6) History of diabetes mellitus: CODE(S): Z86.39 - Personal history of other endocrine, nutritional and metabolic disease PLAN: Plan Patient was evaluated at the wound healing center today. A subcutaneous debridement was performed as documented. Patient just recently was discharged from [facility] in the past couple days. Wound care - Collagen Santyl to the left lateral ulcer nickel thickness covered with gauze daily after washing with soap and water. His wound bed is improving and he would benefit from the other applications of Epifix (he has had 3 applications). The Epifix treatment had been delayed due a couple hospitalizations and being placed in rehab/senior living. Compression - Single tubigrip. Off loading - Cam walker., walks with walker. Vascular: Abnormal blood flow studies noted. To follow up with vascular referral to Dr. Julian. Prior intervention noted. He continues on plavix.? He is noncompressible vessels and EKTA was not calculated.? His toe brachial index on the left side is 0.22 and I do not recommend total contact cast application until adequate perfusion is confirmed. He is diabetic, encouraged diet high in protein with low carbohydrates and to take his medication to help control his blood sugars. Follow up one week. His is [facility] [place] [facility] center.
[2022-09-15 13:28] VITALS: BP 134/78; PULSE 72; RESP 22; TEMP 36.4; BMI 41.1
--- NOTE | 2022-09-15 16:14 | PN.PCM_ITS ---
History of Present Illness Date of Service: 09/15/22 Chief Complaint: left foot ulcer History of Wound: This 62-year-old male with significant past medical history of diabetes with neuropathy peripheral vascular disease, debility, prior PEG tube (not current), arrhythmia, restrictive airway disease, history of heart failure and cardiac stent placement, hypertension, GERD, sleep apnea and mood disorder is following up today from the hospital for a left foot ulcer. He relates the onset of the ulcer was 05-13-2022 after a blister occurred. He was treated for cellulitis with IV and then oral antibiotics during recent [facility] admission. He was referred to see vascular specialist after having abnormal arterial findings in which he did not proceed forward with yet. He has trouble with debility and difficulty walking in the outpatient setting and was recently in a [facility] facility the past month undergoing rehab. That is why he has not had epi fix applied. Patient fell 08/30/22 and was admitted for weakness and his family inability to care for him. He was transferred on 09/01/22 to [place] for rehab. Wound care - He has had 3 applications of Epifix . Now that his wound bed has improved we will apply the 4th application. Progress of Wound: Left lateral plantar ulcer bed has a beefy pink wound bed. He states he is doing better with ambulation and he is going to be going home tomorrow. Objective Data Objective Data Vital Signs: Vital Signs Temp Pulse Resp BP O2 Del Method O2 Flow Rate 97.6 F L 72 22 H 134/78 H Nasal Cannula 3 09/15/22 13:28 09/15/22 13:28 09/15/22 13:28 09/15/22 13:28 09/09/22 12:57 09/09/22 12:57 Oxygen Flow Rate (L/min) 3 Oxygen Delivery Method Nasal Cannula Weight: 287 lb Body Mass Index (BMI) 41.1 Charges/Coding Procedures Integumentary 150xxx-152xx: 26606 Skin sub graft trnk/arm/leg Debridement Note Debridement Note Wound debrided: lateral heel ulcer Laterality: Left Type of Debridement: Excisional debridement Anesthesia Used: 5% Lidocaine Gel Depth: Down to and including healthy tissue and in the subcutaneous layer Percentage of wound debrided: 100 Instrument Used: 3mm curette Tissue Removed: Devitalized tissue and slough Severity: Fat Layer Exposed Amount of bleeding with debridement: Mild Bleeding Controlled with: Compression and gauze Patient tolerated procedure: Patient tolerated procedure well Post-Debridement Measurements and Additional Note: Post-Debridement Measurements/Treatment WC - Nurse 1 - General Ulcer Assessment Start: 09/09/22 12:57 Freq: Status: Active Protocol: SARAH Activity Type Activity Date Activity User E-sign Co-sign Detail Recorded Client Recorded Date Recorded By Document 09/09/22 12:57 BMF [id number] 09/09/22 13:08 BMF Document 09/15/22 13:28 DL [id number] 09/15/22 13:34 DL 09/09/22 09/15/22 12:57 13:28 WC - Today's Visit Information Type of service Follow-up Visit Follow-up Visit (Physician/MANAGER RISK MANAGEMENT (Physician/MANAGER RISK MANAGEMENT ) ) Arrival Mode Wheelchair Wheelchair Transfer Assistance Manual Manual Transfer Assist (Other) 2 x2 Accompanied by Patient Identification Verified (Name & Yes Yes ) Patient Requires Transmission-Based No No Precautions Finger Stick Blood Sugar(mg/dl) (if 99 109 indicated): Blood Sugar Stated by Stated by Patient Patient Height and Weight Body Mass Index (BMI) 41.1 41.1 BMI Classification Obese Obese Vital Signs Temperature (97.8 F-99.1 F) 97.7 F L 97.6 F L Temperature Source Temporal Temporal Pulse Rate (60-100) 85 72 Pulse Location Monitor Monitor Respiratory Rate (12-18) 20 H 22 H Respiratory rate source Observation Observation Oxygen Delivery Method Nasal Cannula O2 L/MIN (L/min) 3 Blood Pressure (90/60-120/80) 114/74 134/78 H Blood Pressure Mean (mm Hg) 87 96 Source Monitor Monitor Position Sitting Sitting Blood Pressure Location Left Arm Left Arm History Since Last Visit- (Skip if this is Patient's initial visit) Have you changed medications since your No No last visit? Any new allergies or adverse reactions No No Had a fall/change in ADL's that may Yes No increase risk of falls Signs or symptoms of abuse and/or No No neglect since last visit Have you been in the hospital since your Yes No last visit? Has dressing in place as prescribed No Yes Has compression in place as prescribed Yes Yes Has offloadiing in place as prescribed Yes N/A Experienced any changes in pain level or No No management Left Footwear Removable Cast Regular Shoe Walker/Walking Boot Right Footwear Regular Shoe Regular Shoe Pain Scale: 0-10 Numeric Is Patient Pain Free? Yes Yes WC - Nurse 1 - General Ulcer Measurement Start: 09/09/22 12:57 Freq: Status: Active Protocol: Activity Type Activity Date Activity User E-sign Co-sign Detail Recorded Client Recorded Date Recorded By Document 09/09/22 12:57 [facility] [id number] 09/09/22 13:08 BMF Document 09/15/22 13:28 DL [id number] 09/15/22 13:34 DL 09/09/22 09/15/22 12:57 13:28 Wound Center Nurse 1 #1- L HEEL -Combined with other wound No -Current Size (cm) - Length 0.9 0.8 -Current Size (cm) - Width 1.1 0.1 -Current Size (cm) - Depth 0.2 0.3 -Total Square Cm 0.99 0.08 -Date of Last Picture (Recall this 09/09/22 field) -Photo Taken Yes -Epithelialization None Present -Tunneling No -Undermining/Tunneling No -Circular Undermining No -Exudate Amt Small Small -Exudate Type Serous Serosanguineous -Wound Margin Distinct, Distinct, Outline Outline Attached Attached -Granulation Amt Small (1-33%) Medium (34-66%) -Granulation Quality [place] -Slough/Fibrin Yes -Necrosis Amt Medium (34-66%) Medium (34-66%) -Necrotic Tissue Type Adherent Slough Adherent Slough -Texture (Sammi-wound Skin Appearance) Assessed, Assessed, Scarring Scarring -Moisture (Sammi-wound Skin Appearance) Assessed No Abnormality, Assessed -Color (Sammi-wound Skin Appearance) Assessed No Abnormality, Assessed -Temperature (Sammi-wound Skin No Abnormality No Abnormality Appearance) (Pt Warm) (Pt Warm) -Tenderness on Palpation (Sammi-wound No No Skin Appearance) -Ulcer Cleansing Rinsed/ Rinsed/ Irrigated with Irrigated with Saline Saline -Foul Odor after Cleansing No No -Anesthetic Used 5% Lidocaine 5% Lidocaine Gel Gel Left Calf (cm) 42.5 Left Ankle (cm) 26.2 WC - Nurse 2 - General Ulcer CM Notes Start: 09/09/22 12:57 Freq: Status: Active Protocol: Activity Type Activity Date Activity User E-sign Co-sign Detail Recorded Client Recorded Date Recorded By Document 09/09/22 13:24 [id number] 09/09/22 13:24 Document 09/15/22 14:16 [id number] 09/15/22 14:19 09/09/22 09/15/22 13:24 14:16 Wound Center Nurse 2 #1- L HEEL -Time 14:16 -Correct Patient Yes Yes -Correct Side, Site, Position Yes Yes -Correct Procedure Yes Yes -Procedure Performed Yes Yes -Type of Procedure Debridement Debridement -Clinical Debridement Subcutaneous Subcutaneous -Tissue Removed Subcutaneous Subcutaneous -Post Debridement (cm) - Length 1.0 1.0 -Post Debridement (cm) - Width 1.4 1.3 -Post Debridement (cm) - Depth 0.4 0.2 -Total Square (Post) (cm) 1.40 1.30 -Area of Debridement (cm) - Length 1.0 1.0 -Area of Debridement (cm) - Width 1.4 1.3 -Total Square (Area) (cm) 1.40 1.30 -Tunneling No No -Undermining/Tunneling No No -Circular Undermining No No -Wound/Ulcer Outcome Not Healed Not Healed -Ulcer Cleansing Rinsed/ Rinsed/ Irrigated with Irrigated with Saline Saline -Foul Odor after Cleansing No No -Bioengineered Tissue No Yes -Type of Bioengineered Tissue Epifix 18mm Disc -Expiration Date 05/29/27 -Product Lot Number [id number] -Percent Used 100 -Lot number of Saline Used [id number] -Bleeding Controlled with Pressure Pressure -Treatment Response Procedure Procedure Tolerated Well Tolerated Well -Offloading Yes Yes -Type of Offloading Camwalker Camwalker -Debridement - Subq, 1st 20sq cm Yes No -Apply Skin Sub - 1st 25 sq cm - Feet 1 -Epifix 18mm Disc 3 Pain Scale: 0-10 Numeric Is Patient Pain Free? Yes Yes - Nurse 3 - General Ulcer D/C NN Start: 09/09/22 12:57 Freq: Status: Active Protocol: Activity Type Activity Date Activity User E-sign Co-sign Detail Recorded Client Recorded Date Recorded By Document 09/09/22 13:34 DL [id number] 09/09/22 13:40 DL Document 09/15/22 14:40 DL [id number] 09/15/22 14:41 DL 09/09/22 09/15/22 13:34 14:40 Wound Care Nurse 3 #1- L HEEL -Ulcer Cleansing Rinsed/ Not Cleansed Irrigated with Saline -Foul Odor after Cleansing No -Other Dressing hydrogel Epifix -Primary Dressing Covered/Secured with Dry Gauze & Dry Gauze & Roll Gauze, Roll Gauze, Secured with Secured with Tape Tape -Other Covering Padding/ Nurses Hat Left -Tubular Bandage Single Layer Single Layer -Size of Tubigrip Used Size E Size E -Size E ($) 1 1 Right -Tubular Bandage Single Layer -Size of Tubigrip Used Size D -Size D ($) 2 -Other extra sent Treatment Response Procedure Procedure Tolerated Well Tolerated Well Pain Scale: 0-10 Numeric Is Patient Pain Free? Yes Yes WC - Visit Discharge Discharge Condition Stable Stable Ambulatory Status Wheelchair Wheelchair Transportation [facility] Type Long-Term Care Long-Term Care Facility Facility Orders Sent Yes Yes Assessment/Plan Assessment/Plan (1) Diabetic ulcer of left foot: CODE(S): E11.621 - Type 2 diabetes mellitus with foot ulcer; L97.529 - Non-pressure chronic ulcer of other part of left foot with unspecified severity (2) Venous insufficiency (chronic) (peripheral): CODE(S): I87.2 - Venous insufficiency (chronic) (peripheral) (3) Localized edema: CODE(S): R60.0 - Localized edema (4) Type 2 diabetes mellitus with diabetic polyneuropathy: CODE(S): E11.42 - Type 2 diabetes mellitus with diabetic polyneuropathy (5) Type 2 diabetes mellitus with foot ulcer: CODE(S): E11.621 - Type 2 diabetes mellitus with foot ulcer; L97.509 - Non-pressure chronic ulcer of other part of unspecified foot with unspecified severity (6) History of diabetes mellitus: CODE(S): Z86.39 - Personal history of other endocrine, nutritional and metabolic disease PLAN: Plan Patient was evaluated at the wound healing center today. A subcutaneous debridement was performed as documented. Patient has been hospitalized a couple times and has been in [place] for rehab. He states he is going home tomorrow. Wound care - The Epifix treatment had been delayed due a couple hospitalizations and being placed in rehab/penitentiary. He has had 3 applications of Epifix. Now that his wound bed has improved we will apply the 4th application today, 100% of the product was used. It was covered with a wound veil and secured with steri strips. Topped with [place] SAP dressing. He is to keep this area dry. May change the outer dressing above the wound veil as needed. Compression - Single tubigrip. Off loading - Cam walker., walks with walker. Vascular: Abnormal blood flow studies noted. To follow up with vascular referral to Dr. Julian. Prior intervention noted. He continues on plavix.? He is noncompressible vessels and EKTA was not calculated.? His toe brachial index on the left side is 0.22 and I do not recommend total contact cast application until adequate perfusion is confirmed. He is diabetic, encouraged diet high in protein with low carbohydrates and to take his medication to help control his blood sugars. He is being discharged tomorrow from [place]. He and and his state his mobility is much improved with rehab and he is ready to go home. Follow up one week.
[2022-09-22 14:31] VITALS: BP 123/65; PULSE 74; TEMP 36; BMI 41.1
--- NOTE | 2022-09-22 16:09 | PN.PCM_ITS ---
History of Present Illness Date of Service: 09/22/22 Chief Complaint: left foot ulcer History of Wound: This 62-year-old male with significant past medical history of diabetes with neuropathy peripheral vascular disease, debility, prior PEG tube (not current), arrhythmia, restrictive airway disease, history of heart failure and cardiac stent placement, hypertension, GERD, sleep apnea and mood disorder is following up today from the hospital for a left foot ulcer. He relates the onset of the ulcer was 05-13-2022 after a blister occurred. He was treated for cellulitis with IV and then oral antibiotics during recent [facility] admission. He was referred to see vascular specialist after having abnormal arterial findings in which he did not proceed forward with yet. He has trouble with debility and difficulty walking in the outpatient setting and was recently in a long term facility the past month undergoing rehab. That is why he has not had epi fix applied. Patient fell 08/30/22 and was admitted for weakness and his family inability to care for him. He was transferred on 09/01/22 to [place] for rehab. Wound care - Epifix with wound veil, steri strips, covered with gauze. Progress of Wound: Left lateral plantar heel ulcer bed has a beefy pink wound bed. It is stable in appearance. He is now home and doing well at home, his states he is more mobile. Objective Data Objective Data Vital Signs: Vital Signs Temp Pulse Resp BP O2 Del Method O2 Flow Rate 96.8 F L 74 22 H 123/65 H Nasal Cannula 3 09/22/22 14:31 09/22/22 14:31 09/15/22 13:28 09/22/22 14:31 09/09/22 12:57 09/09/22 12:57 Oxygen Flow Rate (L/min) 3 Oxygen Delivery Method Nasal Cannula Weight: 287 lb Body Mass Index (BMI) 41.1 Charges/Coding Procedures Integumentary 150xxx-152xx: 33954 Skin sub graft face/nk/hf/g Debridement Note Debridement Note Wound debrided: lateral heel ulcer Laterality: Left Type of Debridement: Excisional debridement Anesthesia Used: 5% Lidocaine Gel Depth: Down to and including healthy tissue and in the subcutaneous layer Percentage of wound debrided: 100 Instrument Used: 3mm curette, #15 blade and - (pickups) Tissue Removed: Devitalized tissue and slough Severity: Fat Layer Exposed Amount of bleeding with debridement: Mild Bleeding Controlled with: Compression and gauze Patient tolerated procedure: Patient tolerated procedure well Post-Debridement Measurements and Additional Note: Post-Debridement Measurements/Treatment WC - Nurse 1 - General Ulcer Assessment Start: 09/09/22 12:57 Freq: Status: Active Protocol: SARAH Activity Type Activity Date Activity User E-sign Co-sign Detail Recorded Client Recorded Date Recorded By Document 09/09/22 12:57 BMF [id number] 09/09/22 13:08 BMF Document 09/15/22 13:28 DL [id number] 09/15/22 13:34 DL Document 09/22/22 14:31 AK [id number] 09/22/22 14:34 AK 09/09/22 09/15/22 09/22/22 12:57 13:28 14:31 - Today's Visit Information Type of service Follow-up Visit Follow-up Visit Follow-up Visit (Physician/LAUNCH CHECK OUT (Physician/LAUNCH CHECK OUT (Physician/LAUNCH CHECK OUT ) ) ) Arrival Mode Wheelchair Wheelchair Wheelchair Transfer Assistance Manual Manual Transfer Assist (Other) 2 x2 Accompanied by Patient Identification Verified (Name & Yes Yes Yes ) Patient Requires Transmission-Based No No No Precautions Safety Precautions NA Finger Stick Blood Sugar(mg/dl) (if 99 109 indicated): Blood Sugar Stated by Stated by Patient Patient Height and Weight Body Mass Index (BMI) 41.1 41.1 41.1 BMI Classification Obese Obese Obese Vital Signs Temperature (97.8 F-99.1 F) 97.7 F L 97.6 F L 96.8 F L Temperature Source Temporal Temporal Temporal Pulse Rate (60-100) 85 72 74 Pulse Location Monitor Monitor Monitor Respiratory Rate (12-18) 20 H 22 H Respiratory rate source Observation Observation Oxygen Delivery Method Nasal Cannula O2 L/MIN (L/min) 3 Blood Pressure (90/60-120/80) 114/74 134/78 H 123/65 H Blood Pressure Mean (mm Hg) 87 96 84 Source Monitor Monitor Monitor Position Sitting Sitting Blood Pressure Location Left Arm Left Arm History Since Last Visit- (Skip if this is Patient's initial visit) Have you changed medications since your No No No last visit? Any new allergies or adverse reactions No No No Had a fall/change in ADL's that may Yes No No increase risk of falls Signs or symptoms of abuse and/or No No No neglect since last visit Have you been in the hospital since your Yes No No last visit? Has dressing in place as prescribed No Yes Yes Has compression in place as prescribed Yes Yes N/A Has offloadiing in place as prescribed Yes N/A N/A Experienced any changes in pain level or No No No management Left Footwear Removable Cast Regular Shoe Regular Shoe Walker/Walking Boot Right Footwear Regular Shoe Regular Shoe Surgical Shoe with pressure relief insole Pain Scale: 0-10 Numeric Is Patient Pain Free? Yes Yes Yes WC - Nurse 1 - General Ulcer Measurement Start: 09/09/22 12:57 Freq: Status: Active Protocol: Activity Type Activity Date Activity User E-sign Co-sign Detail Recorded Client Recorded Date Recorded By Document 09/09/22 12:57 [facility] [id number] 09/09/22 13:08 BMF Document 09/15/22 13:28 DL [id number] 09/15/22 13:34 DL Document 09/22/22 14:31 AK [id number] 09/22/22 14:34 AK 09/09/22 09/15/22 09/22/22 12:57 13:28 14:31 Wound Center Nurse 1 #1- L HEEL -Combined with other wound No No -Current Size (cm) - Length 0.9 0.8 0.7 -Current Size (cm) - Width 1.1 0.1 0.9 -Current Size (cm) - Depth 0.2 0.3 0.2 -Total Square Cm 0.99 0.08 0.63 -Date of Last Picture (Recall this 09/09/22 09/22/22 field) -Photo Taken Yes Yes -Epithelialization None Present -Tunneling No No -Undermining/Tunneling No No -Circular Undermining No No -Change in Wound Grade/Stage No -Exudate Amt Small Small Small -Exudate Type Serous Serosanguineous Serosanguineous -Wound Margin Distinct, Distinct, Distinct, Outline Outline Outline Attached Attached Attached -Granulation Amt Small (1-33%) Medium (34-66%) None Present (0 %) -Granulation Quality [place] N/A -Slough/Fibrin Yes No -Necrosis Amt Medium (34-66%) Medium (34-66%) None Present (0 %) -Necrotic Tissue Type Adherent Slough Adherent Slough -Structure Exposed N/A -Texture (Sammi-wound Skin Appearance) Assessed, Assessed, No Abnormality, Scarring Scarring Assessed -Moisture (Sammi-wound Skin Appearance) Assessed No Abnormality, No Abnormality, Assessed Assessed -Color (Sammi-wound Skin Appearance) Assessed No Abnormality, No Abnormality, Assessed Assessed -Temperature (Sammi-wound Skin No Abnormality No Abnormality No Abnormality Appearance) (Pt Warm) (Pt Warm) (Pt Warm) -Tenderness on Palpation (Sammi-wound No No No Skin Appearance) -Ulcer Cleansing Rinsed/ Rinsed/ Soap and Water Irrigated with Irrigated with Saline Saline -Foul Odor after Cleansing No No No -Anesthetic Used 5% Lidocaine 5% Lidocaine 5% Lidocaine Gel Gel Gel Lower Limb Edema Present No Left Calf (cm) 42.5 40 Left Ankle (cm) 26.2 25.6 WC - Nurse 2 - General Ulcer CM Notes Start: 09/09/22 12:57 Freq: Status: Active Protocol: Activity Type Activity Date Activity User E-sign Co-sign Detail Recorded Client Recorded Date Recorded By Document 09/09/22 13:24 [id number] 09/09/22 13:24 Document 09/15/22 14:16 [id number] 09/15/22 14:19 Document 09/22/22 15:00 [id number] 09/22/22 15:11 09/09/22 09/15/22 09/22/22 13:24 14:16 15:00 Wound Center Nurse 2 #1- L HEEL -Time 14:16 15:00 -Correct Patient Yes Yes Yes -Correct Side, Site, Position Yes Yes Yes -Correct Procedure Yes Yes Yes -Procedure Performed Yes Yes Yes -Type of Procedure Debridement Debridement Debridement -Clinical Debridement Subcutaneous Subcutaneous Subcutaneous -Tissue Removed Subcutaneous Subcutaneous Subcutaneous -Post Debridement (cm) - Length 1.0 1.0 1.2 -Post Debridement (cm) - Width 1.4 1.3 1.3 -Post Debridement (cm) - Depth 0.4 0.2 0.2 -Total Square (Post) (cm) 1.40 1.30 1.56 -Area of Debridement (cm) - Length 1.0 1.0 1.2 -Area of Debridement (cm) - Width 1.4 1.3 1.3 -Total Square (Area) (cm) 1.40 1.30 1.56 -Tunneling No No No -Undermining/Tunneling No No No -Circular Undermining No No No -Wound/Ulcer Outcome Not Healed Not Healed Not Healed -Ulcer Cleansing Rinsed/ Rinsed/ Rinsed/ Irrigated with Irrigated with Irrigated with Saline Saline Saline -Foul Odor after Cleansing No No No -Bioengineered Tissue No Yes Yes -Type of Bioengineered Tissue Epifix 18mm Epifix 18mm Disc Disc -Expiration Date 05/29/27 05/29/27 -Product Lot Number [id number] -Percent Used 100 100 -Lot number of Saline Used [id number] -Bleeding Controlled with Pressure Pressure Pressure -Treatment Response Procedure Procedure Procedure Tolerated Well Tolerated Well Tolerated Well -Offloading Yes Yes Yes -Type of Offloading Camwalker Camwalker Camwalker -Assistive Device(s) Wheelchair -Debridement - Subq, 1st 20sq cm Yes No No -Apply Skin Sub - 1st 25 sq cm - Feet 1 1 -Epifix 18mm Disc 3 3 Pain Scale: 0-10 Numeric Is Patient Pain Free? Yes Yes Yes WC - Nurse 3 - General Ulcer D/C NN Start: 09/09/22 12:57 Freq: Status: Active Protocol: Activity Type Activity Date Activity User E-sign Co-sign Detail Recorded Client Recorded Date Recorded By Document 09/09/22 13:34 DL [id number] 09/09/22 13:40 DL Document 09/15/22 14:40 DL [id number] 09/15/22 14:41 DL Document 09/22/22 15:29 BMF [id number] 09/22/22 15:30 BMF 09/09/22 09/15/22 09/22/22 13:34 14:40 15:29 Wound Care Nurse 3 #1- L HEEL -Ulcer Cleansing Rinsed/ Not Cleansed Irrigated with Saline -Foul Odor after Cleansing No -Other Dressing hydrogel Epifix EPIFIX -Primary Dressing Covered/Secured with Dry Gauze & Dry Gauze & Dry Gauze & Roll Gauze, Roll Gauze, Roll Gauze, Secured with Secured with Secured with Tape Tape Tape -Other Covering Padding/ Nurses HEEL HAT Hat Left -Tubular Bandage Single Layer Single Layer -Size of Tubigrip Used Size E Size E -Size E ($) 1 1 -Other APPLIED PTS OWN SINGLE LAYER TUBI Right -Tubular Bandage Single Layer -Size of Tubigrip Used Size D -Size D ($) 2 -Other extra sent Treatment Response Procedure Procedure Procedure Tolerated Well Tolerated Well Tolerated Well Pain Scale: 0-10 Numeric Is Patient Pain Free? Yes Yes Yes WC - Visit Discharge Discharge Condition Stable Stable Stable Ambulatory Status Wheelchair Wheelchair Wheelchair Transportation [facility] Private Auto Private Auto Accompanied by Facility Type [facility] Dental Director Care Facility Facility Orders Sent Yes Yes Assessment/Plan Assessment/Plan (1) Diabetic ulcer of left foot: CODE(S): E11.621 - Type 2 diabetes mellitus with foot ulcer; L97.529 - Non-pressure chronic ulcer of other part of left foot with unspecified severity (2) Venous insufficiency (chronic) (peripheral): CODE(S): I87.2 - Venous insufficiency (chronic) (peripheral) (3) Localized edema: CODE(S): R60.0 - Localized edema (4) Type 2 diabetes mellitus with diabetic polyneuropathy: CODE(S): E11.42 - Type 2 diabetes mellitus with diabetic polyneuropathy (5) Type 2 diabetes mellitus with foot ulcer: CODE(S): E11.621 - Type 2 diabetes mellitus with foot ulcer; L97.509 - Non-pressure chronic ulcer of other part of unspecified foot with unspecified severity (6) History of diabetes mellitus: CODE(S): Z86.39 - Personal history of other endocrine, nutritional and metabolic disease PLAN: Plan Patient was evaluated at the wound healing center today. A subcutaneous debridement was performed as documented. Patient has been hospitalized a couple times and has been in [place] for rehab. He states he is going home tomorrow. Wound care - The Epifix treatment had been delayed due a couple hospitalizations and being placed in rehab/long term. He had 3 applications of Epifix originally. Will apply the 5 th application today 18mm disk, 100% of the product was used. It was covered with a wound veil and secured with steri strips. Topped with [place] SAP dressing. He is to keep this area dry. May change the outer dressing above the wound veil as needed. Compression - Single tubigrip. Off loading - Cam walker., walks with walker. Vascular: Abnormal blood flow studies noted. To follow up with vascular referral to Dr. Julian. Prior intervention noted. He continues on plavix.? He is noncompressible vessels and EKTA was not calculated.? His toe brachial index on the left side is 0.22 and I do not recommend total contact cast application until adequate perfusion is confirmed. He is diabetic, encouraged diet high in protein with low carbohydrates and to take his medication to help control his blood sugars. He is now home and his states he is doing well and is more mobile. Follow up one week.
== END 2022-09-28 23:59 | disposition home or self-care (01) ==
LOC: WC 14:45
PROVIDERS: PCP Internal Medicine; Visit Provider Nurse Practitioner Family
DX: E11.621 Type 2 diabetes mellitus with foot ulcer (principal); E11.51 Type 2 diabetes mellitus with diabetic peripheral angiopathy without gangrene; L97.422 Non-pressure chronic ulcer of left heel and midfoot with fat layer exposed; E11.42 Type 2 diabetes mellitus with diabetic polyneuropathy; Z79.4 Long term (current) use of insulin; I87.2 Venous insufficiency (chronic) (peripheral); R60.0 Localized edema; R26.2 Difficulty in walking, not elsewhere classified; I10 Essential (primary) hypertension; G47.30 Sleep apnea, unspecified; K21.9 Gastro-esophageal reflux disease without esophagitis; Z79.82 Long term (current) use of aspirin; Z79.02 Long term (current) use of antithrombotics/antiplatelets; Z79.899 Other long term (current) drug therapy; Z95.5 Presence of coronary angioplasty implant and graft
CPT/HCPCS: 11042; 15275; Q4186

== ENCOUNTER 2022-09-24 16:28 | Outpatient (RCR) | payer MEDICARE, MEDICAID, SELFPAY ==
--- NOTE | 2022-09-24 17:54 | HP.PTEVAL ---
Patient's Visit Information REA HANNA is a 62 year old M referred to Physical Therapy by PAUL Estrada with a diagnosis of Debility. Date of Evaluation: 09/24/22 Physical Therapist: German Felton PT, ATC - Visit Plan Frequency: 1x/Week Duration: 1 Week Plan: Pt will be discharged at this time. Pt is in need of a wheel chair at this time as he is unable to ambulate safely. - Subjective Pt was diagnosed with Peripheral neuropathy disease and DM2 several years ago. Pt notes he has had 3 heart attacks in 2 years. Pt has had stints placed in both of his LE's 4 years ago. Pt reports he can take a couple steps with a rollator but then his legs get shaky and give out on him. Pt notes his feet are mostly numb at this time which also makes it very difficult for him to walk. Pt reports he used to bowl and play a lot of softball, none of which he could do now. Pt was placed on disability in 2007 secondary to his diabetes as he lost all the toes on his R foot. Pt requires his with all transfers, and most of his ADL's like getting dressed and taking showers. Pt does have an aid that comes 3 hours per day to assist the . Pt reports he is unable to participate in most community events secondary to lack of mobility. Pt reports he has some pain in his L LE today rating it at 7/10, but notes it increases to 10/10 at worst.. Pt also has a heal ulcer on his L LE. Pt has had several falls in the past (10+) with the last one occurring 3 weeks ago - Pain L LE Pain Intensity (Out of 10): 7 Pain Intensity Range: 10 - Objective Neuro: B LE sensation is WNL to light touch. ROM: B LE's are WFL when compared bilat. MMT: L LE is grossly 4-/5 throughout while R LE is 4/5 throughout. Transfers: Pt is able to sit to stand with CGAx1. Posture: Pt sits and stands with a decrease in L/S lordosis and increase in T/S kyphosis. Gait: Pt is unable to ambulate at this time. - Goals Goal 1:: N/A - Rehabilitation Potential Physical Therapy Diagnosis: Pt has LE weakness and difficulty with ambulation secondary to debilitation Rehabilitation Potential: Good - Anticipated Interventions Patient/Client Instruction: Educate patient on: Condition, Plan of Care For the Purpose of:: To improve self management Thank you for the opportunity to evaluate your patient. For Medicare and Medicare HMO plans, please review the plan of care and approve it. It will need to be FAXED BACK to us at [phone] for Medicare purposes. For Medicare only, by signing this I certify the plan of care. Please let me know if there are questions or concerns regarding this plan of care. Physician Signature: Date:
--- NOTE | 2022-11-10 13:36 | HP.PT.NRP ---
REA HANNA was seen in my office for initial evaluation on 09/24/22. The following Plan of Care was established for this patient: Initial Frequency: 1x/Week Initial Duration: 1 Week Patient/Client Instruction: Educate patient on: Condition, Plan of Care For the Purpose of:: To improve self management This patient was last seen in our office . Pertinent comments regarding their Physical therapy will appear below: Pt was evaluated for debility on the date of 09/24/22. Pt did not return after that date and has been discontinued at this time. At this point I will be discontinuing this patient from physical therapy. I would be happy to see this patient again in the future if found appropriate by the physician. Thank you! German Felton, PT, ATC
== END 2022-09-24 19:00 | disposition home or self-care (01) ==
LOC: PT 16:28
PROVIDERS: PCP Internal Medicine; Referring Provider Nurse Practitioner Family; Visit Provider Nurse Practitioner Family
DX: R53.1 Weakness (principal)
CPT/HCPCS: 97161

== ENCOUNTER 2022-10-26 13:58 | Outpatient (CLI) | payer MEDICARE, MEDICAID, SELFPAY ==
[2022-10-26 15:07] LABS: Absolute Neutrophil Count 7.1 X10^3/uL (2.0-7.7); Basophil# 0.04 X10^3/uL; Basophil% 0.4 % (0-1); Eosinophil# 0.16 X10^3/uL; Eosinophils% 1.6 % (0-5); Hematocrit 38.2 % (40-54); Hemoglobin 11.9 g/dL (13.0-16.5); Lymphocyte % 19.5 % (19-41); Mean Corp Hgb Conc 31.2 g/dL (32-36); Mean Corpuscular Hgb 28.2 pg (27.0-32.0); Mean Corpuscular Volume 90.5 fL (80-94); Mean Platelet Vol. 11.2 fl (6.2-12.0); Monocyte# 0.92 X10^3/uL; NRBC Flagged by Analyzer 0 % (0-5); Neutrophil # 7.09 X10^3/uL (2.7-7.7); Platelet Count 230 K/mm3 (150-450); RBC Distribution Width CV 14.1 % (11.6-14.6); RBC Distribution Width SD 46.6 fl (35.1-43.9); Red Blood Count 4.22 M/mm3 (4.6-6.2); White Blood Count 10.3 K/mm3 (4.4-11.0)
[2022-10-26 15:21] LABS: Anion Gap 5 (5-15); BUN 27 mg/dL (7-18); BUN/Creat Ratio 18.4 RATIO (10-20); Calcium,Total 9.4 mg/dL (8.5-10.1); Chloride 100 mmol/L (98-107); Creatinine, Serum 1.47 mg/dL (0.70-1.30); EST Glomerular Filtration Rate 51 mL/min (>60); Est Glom Filt Rate - Afr Amer 62 mL/min (>60); Glucose 256 mg/dL (74-106); Phosphorus 3.3 mg/dL (2.5-4.9); Potassium 5.3 mmol/L (3.5-5.1); Sodium Level 135 mmol/L (136-145)
== END 2022-10-26 23:59 | disposition home or self-care (01) ==
PROVIDERS: PCP Internal Medicine; Referring Provider Internal Medicine Nephrology; Visit Provider Internal Medicine Nephrology
DX: E11.22 Type 2 diabetes mellitus with diabetic chronic kidney disease (principal); Z79.4 Long term (current) use of insulin; N18.31 Chronic kidney disease, stage 3a; I12.9 Hypertensive chronic kidney disease with stage 1 through stage 4 chronic kidney disease, or unspecified chronic kidney disease; D72.829 Elevated white blood cell count, unspecified
CPT/HCPCS: 36415; 80048; 84100; 85025

== ENCOUNTER 2022-10-27 13:00 | Outpatient (RCR) | payer MEDICARE, MEDICAID, SELFPAY ==
[2022-09-29 00:29] VITALS: BP 123/65; PULSE 74; RESP 22; TEMP 36; BMI 41.1
[2022-09-29 14:23] VITALS: BP 160/60; PULSE 71; RESP 22; TEMP 36.4; BMI 41.1
--- NOTE | 2022-09-29 14:32 | PN.PCM_ITS ---
History of Present Illness Date of Service: 09/29/22 Chief Complaint: left foot ulcer History of Wound: This 62-year-old male with significant past medical history of diabetes with neuropathy peripheral vascular disease, debility, prior PEG tube (not current), arrhythmia, restrictive airway disease, history of heart failure and cardiac stent placement, hypertension, GERD, sleep apnea and mood disorder is following up today from the hospital for a left foot ulcer. He relates the onset of the ulcer was 05-13-2022 after a blister occurred. He was treated for cellulitis with IV and then oral antibiotics during recent [facility] admission. He was referred to see vascular specialist after having abnormal arterial findings in which he did not proceed forward with yet. He has trouble with debility and difficulty walking in the outpatient setting and was recently in a prison facility the past month undergoing rehab. That is why he has not had epi fix applied. Patient fell 08/30/22 and was admitted for weakness and his family inability to care for him. He was transferred on 09/01/22 to [place] for rehab. Wound care - Epifix with wound veil, steri strips, covered with gauze. Progress of Wound: Left lateral plantar heel ulcer bed has a beefy pink wound bed. It is stable in appearance. He has callus surrounding the ulcer. He states he is still doing well at home. Objective Data Objective Data Vital Signs: Vital Signs Temp Pulse Resp BP O2 Flow Rate 97.5 F L 71 22 H 160/60 H 3 09/29/22 14:23 09/29/22 14:23 09/29/22 14:23 09/29/22 14:23 09/29/22 00:29 Oxygen Flow Rate (L/min) 3 Weight: 287 lb Body Mass Index (BMI) 41.1 Charges/Coding Procedures Integumentary 150xxx-152xx: [id number] Skin sub graft face/nk/hf/g Debridement Note Debridement Note Wound debrided: lateral heel ulcer Laterality: Left Type of Debridement: Excisional debridement Anesthesia Used: 5% Lidocaine Gel Depth: Down to and including healthy tissue and in the subcutaneous layer Percentage of wound debrided: 100 Instrument Used: 3mm curette Tissue Removed: Devitalized tissue and slough Severity: Fat Layer Exposed Amount of bleeding with debridement: Mild Bleeding Controlled with: Compression and gauze Patient tolerated procedure: Patient tolerated procedure well Post-Debridement Measurements and Additional Note: Post-Debridement Measurements/Treatment - Nurse 1 - General Ulcer Assessment Start: 09/29/22 14:23 Freq: Status: Active Protocol: SARAH Activity Type Activity Date Activity User E-sign Co-sign Detail Recorded Client Recorded Date Recorded By Document 09/29/22 14:23 [facility] [id number] 09/29/22 14:31 BMF Edit Result 09/29/22 14:23 BMF (1) [id number] 09/29/22 14:33 BMF (1) Temperature (97.8 F-99.1 F) => 97.5 F L Pulse Rate (60-100) => 71 Respiratory Rate (12-18) => 22 H Respiratory rate source => Observation Blood Pressure (90/60-120/80) => 160/60 H Blood Pressure Mean (mm Hg) => 93 09/29/22 14:23 - Today's Visit Information Type of service Follow-up Visit (Physician/E [employer]CHITECT ) Arrival Mode Wheelchair Transfer Assistance None Accompanied by Patient Identification Verified (Name & Yes ) Patient Requires Transmission-Based No Precautions Height and Weight Body Mass Index (BMI) 41.1 BMI Classification Obese Vital Signs Temperature (97.8 F-99.1 F) 97.5 F L Temperature Source Temporal Pulse Rate (60-100) 71 Pulse Location Monitor Respiratory Rate (12-18) 22 H Respiratory rate source Observation Blood Pressure (90/60-120/80) 160/60 H Blood Pressure Mean (mm Hg) 93 Source Monitor Position Sitting Pain Scale: 0-10 Numeric Is Patient Pain Free? Yes - Nurse 1 - General Ulcer Measurement Start: 09/29/22 14:23 Freq: Status: Active Protocol: Activity Type Activity Date Activity User E-sign Co-sign Detail Recorded Client Recorded Date Recorded By Document 09/29/22 14:23 [facility] [id number] 09/29/22 14:31 BMF 09/29/22 14:23 Wound Center Nurse 1 #1- L HEEL -Current Size (cm) - Length 0.8 -Current Size (cm) - Width 0.7 -Current Size (cm) - Depth 0.2 -Total Square Cm 0.56 -Photo Taken Yes -Exudate Amt Medium -Exudate Type Serosanguineous -Wound Margin Distinct, Outline Attached -Granulation Amt None Present (0 %) -Necrosis Amt Large (67-100%) -Necrotic Tissue Type Adherent Slough -Structure Exposed N/A -Texture (Sammi-wound Skin Appearance) Scarring -Moisture (Sammi-wound Skin Appearance) Maceration -Color (Sammi-wound Skin Appearance) Erythema -Temperature (Sammi-wound Skin No Abnormality Appearance) (Pt Warm) -Tenderness on Palpation (Sammi-wound No Skin Appearance) -Ulcer Cleansing Soap and Water -Foul Odor after Cleansing No -Anesthetic Used 5% Lidocaine Gel Left Calf (cm) 40.5 Left Ankle (cm) 25 WC - Nurse 2 - General Ulcer CM Notes Start: 09/29/22 14:23 Freq: Status: Active Protocol: Activity Type Activity Date Activity User E-sign Co-sign Detail Recorded Client Recorded Date Recorded By Document 09/29/22 14:57 [id number] 09/29/22 15:08 09/29/22 14:57 Wound Center Nurse 2 #1- L HEEL -Time 14:57 -Correct Patient Yes -Correct Side, Site, Position Yes -Correct Procedure Yes -Procedure Performed Yes -Type of Procedure Debridement -Clinical Debridement Subcutaneous -Tissue Removed Subcutaneous -Post Debridement (cm) - Length 1.3 -Post Debridement (cm) - Width 1.4 -Post Debridement (cm) - Depth 0.2 -Total Square (Post) (cm) 1.82 -Area of Debridement (cm) - Length 1.3 -Area of Debridement (cm) - Width 1.4 -Total Square (Area) (cm) 1.82 -Tunneling No -Undermining/Tunneling No -Circular Undermining No -Wound/Ulcer Outcome Not Healed -Ulcer Cleansing Rinsed/ Irrigated with Saline -Foul Odor after Cleansing No -Bioengineered Tissue Yes -Type of Bioengineered Tissue Epifix 18mm Disc -Expiration Date 06/29/27 -Product Lot Number [id number] -Percent Used 100 -Lot number of Saline Used [id number] -Bleeding Controlled with Pressure -Treatment Response Procedure Tolerated Well -Offloading Yes -Type of Offloading Camwalker -Assistive Device(s) Wheelchair -Debridement - Subq, 1st 20sq cm No -Apply Skin Sub - 1st 25 sq cm - Feet 1 -Epifix 18mm Disc 3 Pain Scale: 0-10 Numeric Is Patient Pain Free? Yes WC - Nurse 3 - General Ulcer D/C NN Start: 09/29/22 14:23 Freq: Status: Active Protocol: Activity Type Activity Date Activity User E-sign Co-sign Detail Recorded Client Recorded Date Recorded By Document 09/29/22 15:23 MW [id number] 09/29/22 15:24 MW 09/29/22 15:23 Wound Care Nurse 3 #1- L HEEL -Ulcer Cleansing Not Cleansed -Foul Odor after Cleansing No -Negative Pressure Wound Therapy N/A -Primary Dressing Covered/Secured with Dry Gauze & Roll Gauze, Secured with Tape -Other Covering abd Left -Lotion applied to leg before No compression wrap -Tubular Bandage Single Layer -Size of Tubigrip Used Size E -Size E ($) 1 Treatment Response Procedure Tolerated Well Pain Scale: 0-10 Numeric Is Patient Pain Free? Yes Teaching: Wound Center Dressing Your Wound -Person Taught Patient,Family -Teaching Method Discussion, Demonstration -Response to teaching Verbalize understanding WC - Visit Discharge Discharge Condition Stable Ambulatory Status Wheelchair Transportation Private Auto Accompanied by Medication Reconcilliation completed & No provided to patient/care provider Clinical Summary of Care Provided Yes Notes: Gauze Dressing / ABD pad applied per Leon Shah RNdean of chapel/Plan Assessment/Plan (1) Diabetic ulcer of left foot: CODE(S): E11.621 - Type 2 diabetes mellitus with foot ulcer; L97.529 - Non-pressure chronic ulcer of other part of left foot with unspecified severity (2) Venous insufficiency (chronic) (peripheral): CODE(S): I87.2 - Venous insufficiency (chronic) (peripheral) (3) Localized edema: CODE(S): R60.0 - Localized edema (4) Type 2 diabetes mellitus with diabetic polyneuropathy: CODE(S): E11.42 - Type 2 diabetes mellitus with diabetic polyneuropathy (5) Type 2 diabetes mellitus with foot ulcer: CODE(S): E11.621 - Type 2 diabetes mellitus with foot ulcer; L97.509 - Non-pressure chronic ulcer of other part of unspecified foot with unspecified severity (6) History of diabetes mellitus: CODE(S): Z86.39 - Personal history of other endocrine, nutritional and metabolic disease PLAN: Plan Patient was evaluated at the wound healing center today. A subcutaneous debridement was performed as documented. Patient has been hospitalized a couple times and has been in [place] for rehab. He states he is going home tomorrow. Wound care - The Epifix treatment had been delayed due a couple hospitalizations and being placed in rehab/prison. He had 3 applications of Epifix originally. Will apply the 6th application today 18mm disk, 100% of the product was used. It was covered with a wound veil and secured with steri strips. Topped with gauze dressing. He is to keep this area dry. May change the outer dressing above the wound veil as needed. Compression - Single tubigrip. Off loading - Cam walker., walks with walker. Will [facility] to have his Cam walker modified to prevent pressure to this ulcer. Vascular: Abnormal blood flow studies noted. To follow up with vascular referral to Dr. Julian. Prior intervention noted. He continues on plavix.? He is noncompressible vessels and EKTA was not calculated.? His toe brachial index on the left side is 0.22 and I do not recommend total contact cast application until adequate perfusion is confirmed. He is diabetic, encouraged diet high in protein with low carbohydrates and to take his medication to help control his blood sugars. He is now home and is doing well. Follow up one week.
--- NOTE | 2022-09-29 17:17 | PN.PCM_ITS ---
History of Present Illness Date of Service: 09/29/22 Chief Complaint: left foot ulcer History of Wound: This 62-year-old male with significant past medical history of diabetes with neuropathy peripheral vascular disease, debility, prior PEG tube (not current), arrhythmia, restrictive airway disease, history of heart failure and cardiac stent placement, hypertension, GERD, sleep apnea and mood disorder is following up today from the hospital for a left foot ulcer. He relates the onset of the ulcer was 05-13-2022 after a blister occurred. He was treated for cellulitis with IV and then oral antibiotics during recent [facility] admission. He was referred to see vascular specialist after having abnormal arterial findings in which he did not proceed forward with yet. He has trouble with debility and difficulty walking in the outpatient setting and was recently in a intermediate facility the past month undergoing rehab. That is why he has not had epi fix applied. Patient fell 08/30/22 and was admitted for weakness and his family inability to care for him. He was transferred on 09/01/22 to [place] for rehab. Wound care - Epifix with wound veil, steri strips, covered with gauze. Objective Data Objective Data Vital Signs: Vital Signs Temp Pulse Resp BP O2 Flow Rate 97.5 F L 71 22 H 160/60 H 3 09/29/22 14:23 09/29/22 14:23 09/29/22 14:23 09/29/22 14:23 09/29/22 00:29 Oxygen Flow Rate (L/min) 3 Weight: 287 lb Body Mass Index (BMI) 41.1 Debridement Note Debridement Note Post-Debridement Measurements and Additional Note: Post-Debridement Measurements/Treatment WC - Nurse 1 - General Ulcer Assessment Start: 09/29/22 14:23 Freq: Status: Active Protocol: [email or web address] Activity Type Activity Date Activity User E-sign Co-sign Detail Recorded Client Recorded Date Recorded By Document 09/29/22 14:23 BMF [id number] 09/29/22 14:31 BMF Edit Result 09/29/22 14:23 BMF (1) [id number] 09/29/22 14:33 BMF (1) Temperature (97.8 F-99.1 F) => 97.5 F L Pulse Rate (60-100) => 71 Respiratory Rate (12-18) => 22 H Respiratory rate source => Observation Blood Pressure (90/60-120/80) => 160/60 H Blood Pressure Mean (mm Hg) => 93 09/29/22 14:23 WC - Today's Visit Information Type of service Follow-up Visit (Physician/BOOKKEEPING TEACHER ) Arrival Mode Wheelchair Transfer Assistance None Accompanied by Patient Identification Verified (Name & Yes ) Patient Requires Transmission-Based No Precautions Height and Weight Body Mass Index (BMI) 41.1 BMI Classification Obese Vital Signs Temperature (97.8 F-99.1 F) 97.5 F L Temperature Source Temporal Pulse Rate (60-100) 71 Pulse Location Monitor Respiratory Rate (12-18) 22 H Respiratory rate source Observation Blood Pressure (90/60-120/80) 160/60 H Blood Pressure Mean (mm Hg) 93 Source Monitor Position Sitting Pain Scale: 0-10 Numeric Is Patient Pain Free? Yes - Nurse 1 - General Ulcer Measurement Start: 09/29/22 14:23 Freq: Status: Active Protocol: Activity Type Activity Date Activity User E-sign Co-sign Detail Recorded Client Recorded Date Recorded By Document 09/29/22 14:23 [facility] [id number] 09/29/22 14:31 [facility] 09/29/22 14:23 Wound Center Nurse 1 #1- L HEEL -Current Size (cm) - Length 0.8 -Current Size (cm) - Width 0.7 -Current Size (cm) - Depth 0.2 -Total Square Cm 0.56 -Photo Taken Yes -Exudate Amt Medium -Exudate Type Serosanguineous -Wound Margin Distinct, Outline Attached -Granulation Amt None Present (0 %) -Necrosis Amt Large (67-100%) -Necrotic Tissue Type Adherent Slough -Structure Exposed N/A -Texture (Sammi-wound Skin Appearance) Scarring -Moisture (Sammi-wound Skin Appearance) Maceration -Color (Sammi-wound Skin Appearance) Erythema -Temperature (Sammi-wound Skin No Abnormality Appearance) (Pt Warm) -Tenderness on Palpation (Sammi-wound No Skin Appearance) -Ulcer Cleansing Soap and Water -Foul Odor after Cleansing No -Anesthetic Used 5% Lidocaine Gel Left Calf (cm) 40.5 Left Ankle (cm) 25 - Nurse 2 - General Ulcer CM Notes Start: 09/29/22 14:23 Freq: Status: Active Protocol: Activity Type Activity Date Activity User E-sign Co-sign Detail Recorded Client Recorded Date Recorded By Document 09/29/22 14:57 [id number] 09/29/22 15:08 09/29/22 14:57 Wound Center Nurse 2 #1- L HEEL -Time 14:57 -Correct Patient Yes -Correct Side, Site, Position Yes -Correct Procedure Yes -Procedure Performed Yes -Type of Procedure Debridement -Clinical Debridement Subcutaneous -Tissue Removed Subcutaneous -Post Debridement (cm) - Length 1.3 -Post Debridement (cm) - Width 1.4 -Post Debridement (cm) - Depth 0.2 -Total Square (Post) (cm) 1.82 -Area of Debridement (cm) - Length 1.3 -Area of Debridement (cm) - Width 1.4 -Total Square (Area) (cm) 1.82 -Tunneling No -Undermining/Tunneling No -Circular Undermining No -Wound/Ulcer Outcome Not Healed -Ulcer Cleansing Rinsed/ Irrigated with Saline -Foul Odor after Cleansing No -Bioengineered Tissue Yes -Type of Bioengineered Tissue Epifix 18mm Disc -Expiration Date 06/29/27 -Product Lot Number [id number] -Percent Used 100 -Lot number of Saline Used [id number] -Bleeding Controlled with Pressure -Treatment Response Procedure Tolerated Well -Offloading Yes -Type of Offloading Camwalker -Assistive Device(s) Wheelchair -Debridement - Subq, 1st 20sq cm No -Apply Skin Sub - 1st 25 sq cm - Feet 1 -Epifix 18mm Disc 3 Pain Scale: 0-10 Numeric Is Patient Pain Free? Yes WC - Nurse 3 - General Ulcer D/C NN Start: 09/29/22 14:23 Freq: Status: Active Protocol: Activity Type Activity Date Activity User E-sign Co-sign Detail Recorded Client Recorded Date Recorded By Document 09/29/22 15:23 [id number] 09/29/22 15:24 MW 09/29/22 15:23 Wound Care Nurse 3 #1- L HEEL -Ulcer Cleansing Not Cleansed -Foul Odor after Cleansing No -Negative Pressure Wound Therapy N/A -Primary Dressing Covered/Secured with Dry Gauze & Roll Gauze, Secured with Tape -Other Covering abd Left -Lotion applied to leg before No compression wrap -Tubular Bandage Single Layer -Size of Tubigrip Used Size E -Size E ($) 1 Treatment Response Procedure Tolerated Well Pain Scale: 0-10 Numeric Is Patient Pain Free? Yes Teaching: Wound Center Dressing Your Wound -Person Taught Patient,Family -Teaching Method Discussion, Demonstration -Response to teaching Verbalize understanding WC - Visit Discharge Discharge Condition Stable Ambulatory Status Wheelchair Transportation Private Auto Accompanied by Medication Reconcilliation completed & No provided to patient/care provider Clinical Summary of Care Provided Yes Notes: Gauze Dressing / ABD pad applied per Leon Shah RN
[2022-10-06 14:28] VITALS: BP 110/57; PULSE 68; RESP 20; TEMP 35.7; BMI 41.1
--- NOTE | 2022-10-06 15:15 | PCM.WC.PN ---
History of Present Illness Date of Service: 10/06/22 Chief Complaint: left foot ulcer History of Wound: This 62-year-old male with significant past medical history of diabetes with neuropathy peripheral vascular disease, debility, prior PEG tube (not current), arrhythmia, restrictive airway disease, history of heart failure and cardiac stent placement, hypertension, GERD, sleep apnea and mood disorder is following up today from the hospital for a left foot ulcer. He relates the onset of the ulcer was 05-13-2022 after a blister occurred. He was treated for cellulitis with IV and then oral antibiotics during recent [facility] admission. He was referred to see vascular specialist after having abnormal arterial findings in which he did not proceed forward with yet. He has trouble with debility and difficulty walking in the outpatient setting and was recently in a [facility] facility the past month undergoing rehab. That is why he has not had epi fix applied. Patient fell 08/30/22 and was admitted for weakness and his family inability to care for him. He was transferred on 09/01/22 to [facility] for rehab. Wound care - He has had 6 applications of Epifix. Will put that on hold and start Moistened Adamaris covered with gauze every other day. Progress of Wound: Left lateral plantar heel ulcer bed has a beefy pink wound bed, the ulcer is not improving. He has increased callus surrounding the ulcer. He has not had his Cam walker revised. Objective Data Objective Data Vital Signs: Vital Signs Temp Pulse Resp BP O2 Del Method O2 Flow Rate 96.3 F L 68 20 H 110/57 L Nasal Cannula 4 10/06/22 14:28 10/06/22 14:28 10/06/22 14:28 10/06/22 14:28 10/06/22 14:28 10/06/22 14:28 Oxygen Flow Rate (L/min) 4 Oxygen Delivery Method Nasal Cannula Weight: 287 lb Body Mass Index (BMI) 41.1 Charges/Coding Procedures Integumentary 111xxx-113xx: [id number] Gabriela subq tissue 20 sq cm/< Debridement Note Debridement Note Wound debrided: lateral heel ulcer Laterality: Left Type of Debridement: Excisional debridement Anesthesia Used: 5% Lidocaine Gel Depth: Down to and including healthy tissue and in the subcutaneous layer Percentage of wound debrided: 100 Instrument Used: 3mm curette and #15 blade (with pick ups) Tissue Removed: Devitalized tissue and slough Severity: Fat Layer Exposed Amount of bleeding with debridement: Mild Bleeding Controlled with: Compression and gauze Patient tolerated procedure: Patient tolerated procedure well Post-Debridement Measurements and Additional Note: Post-Debridement Measurements/Treatment - Nurse 1 - General Ulcer Assessment Start: 09/29/22 14:23 Freq: Status: Active Protocol: .LOWEXT Activity Type Activity Date Activity User E-sign Co-sign Detail Recorded Client Recorded Date Recorded By Document 09/29/22 14:23 BMF [id number] 09/29/22 14:31 BMF Edit Result 09/29/22 14:23 BMF (1) [id number] 09/29/22 14:33 BMF Document 10/06/22 14:28 MW [id number] 10/06/22 14:30 MW (1) Temperature (97.8 F-99.1 F) => 97.5 F L Pulse Rate (60-100) => 71 Respiratory Rate (12-18) => 22 H Respiratory rate source => Observation Blood Pressure (90/60-120/80) => 160/60 H Blood Pressure Mean (mm Hg) => 93 09/29/22 10/06/22 14:23 14:28 - Today's Visit Information Type of service Follow-up Visit Follow-up Visit (Physician/PRODUCTION TOOL ENGINEER (Physician/PRODUCTION TOOL ENGINEER ) ) Arrival Mode Wheelchair Wheelchair Transfer Assistance None Manual Accompanied by Patient Identification Verified (Name & Yes Yes ) Patient Requires Transmission-Based No No Precautions Safety Precautions Fall Prevention Height and Weight Body Mass Index (BMI) 41.1 41.1 BMI Classification Obese Obese Vital Signs Temperature (97.8 F-99.1 F) 97.5 F L 96.3 F L Temperature Source Temporal Temporal Pulse Rate (60-100) 71 68 Pulse Location Monitor Monitor Respiratory Rate (12-18) 22 H 20 H Respiratory rate source Observation Observation Oxygen Delivery Method Nasal Cannula O2 L/MIN (L/min) 4 Blood Pressure (90/60-120/80) 160/60 H 110/57 L Blood Pressure Mean (mm Hg) 93 74 Source Monitor Monitor Position Sitting Sitting Blood Pressure Location Left Arm History Since Last Visit- (Skip if this is Patient's initial visit) Have you changed medications since your No last visit? Any new allergies or adverse reactions No Had a fall/change in ADL's that may No increase risk of falls Signs or symptoms of abuse and/or No neglect since last visit Have you been in the hospital since your No last visit? Has dressing in place as prescribed Yes Has compression in place as prescribed N/A Has offloadiing in place as prescribed N/A Experienced any changes in pain level or No management Left Footwear Removable Cast Walker/Walking Boot Right Footwear Regular Shoe Pain Scale: 0-10 Numeric Is Patient Pain Free? Yes Yes WC - Nurse 1 - General Ulcer Measurement Start: 09/29/22 14:23 Freq: Status: Active Protocol: Activity Type Activity Date Activity User E-sign Co-sign Detail Recorded Client Recorded Date Recorded By Document 09/29/22 14:23 [facility] [id number] 09/29/22 14:31 [facility] Document 10/06/22 14:30 MW [id number] 10/06/22 14:31 MW 09/29/22 10/06/22 14:23 14:30 Wound Center Nurse 1 #1- L HEEL -Combined with other wound No -Current Size (cm) - Length 0.8 0.8 -Current Size (cm) - Width 0.7 0.8 -Current Size (cm) - Depth 0.2 0.2 -Total Square Cm 0.56 0.64 -Photo Taken Yes No -Epithelialization Small 1-33% -Undermining/Tunneling No -Circular Undermining No -Exudate Amt Medium Small -Exudate Type Serosanguineous Serosanguineous -Wound Margin Distinct, Flat & Intact Outline Attached -Granulation Amt None Present (0 Medium (34-66%) %) -Granulation Quality [place] -Slough/Fibrin Yes -Necrosis Amt Large (67-100%) Medium (34-66%) -Necrotic Tissue Type Adherent Slough Adherent Slough -Structure Exposed N/A N/A -Texture (Sammi-wound Skin Appearance) Scarring Assessed -Moisture (Sammi-wound Skin Appearance) Maceration Assessed,Dry/ Scaly -Color (Sammi-wound Skin Appearance) Erythema No Abnormality, Assessed -Temperature (Sammi-wound Skin No Abnormality No Abnormality Appearance) (Pt Warm) (Pt Warm) -Tenderness on Palpation (Sammi-wound No No Skin Appearance) -Ulcer Cleansing Soap and Water Rinsed/ Irrigated with Saline -Foul Odor after Cleansing No No -Anesthetic Used 5% Lidocaine 5% Lidocaine Gel Gel Lower Limb Edema Present No Left Calf (cm) 40.5 Left Ankle (cm) 25 WC - Nurse 2 - General Ulcer CM Notes Start: 09/29/22 14:23 Freq: Status: Active Protocol: Activity Type Activity Date Activity User E-sign Co-sign Detail Recorded Client Recorded Date Recorded By Document 09/29/22 14:57 [id number] 09/29/22 15:08 Document 10/06/22 14:43 [id number] 10/06/22 14:50 09/29/22 10/06/22 14:57 14:43 Wound Center Nurse 2 #1- L HEEL -Time 14:57 14:48 -Correct Patient Yes Yes -Correct Side, Site, Position Yes Yes -Correct Procedure Yes Yes -Procedure Performed Yes Yes -Type of Procedure Debridement Debridement -Clinical Debridement Subcutaneous Subcutaneous -Tissue Removed Subcutaneous Subcutaneous -Post Debridement (cm) - Length 1.3 1.5 -Post Debridement (cm) - Width 1.4 1.5 -Post Debridement (cm) - Depth 0.2 0.2 -Total Square (Post) (cm) 1.82 2.25 -Area of Debridement (cm) - Length 1.3 1.5 -Area of Debridement (cm) - Width 1.4 1.5 -Total Square (Area) (cm) 1.82 2.25 -Tunneling No No -Undermining/Tunneling No No -Circular Undermining No No -Wound/Ulcer Outcome Not Healed Not Healed -Ulcer Cleansing Rinsed/ Rinsed/ Irrigated with Irrigated with Saline Saline -Foul Odor after Cleansing No No -Bioengineered Tissue Yes No -Type of Bioengineered Tissue Epifix 18mm Disc -Expiration Date 06/29/27 -Product Lot Number [id number] -Percent Used 100 -Lot number of Saline Used [id number] -Bleeding Controlled with Pressure Pressure -Treatment Response Procedure Procedure Tolerated Well Tolerated Well -Offloading Yes Yes -Type of Offloading Camwalker Camwalker -Assistive Device(s) Wheelchair -Debridement - Subq, 1st 20sq cm No Yes -Apply Skin Sub - 1st 25 sq cm - Feet 1 -Epifix 18mm Disc 3 Pain Scale: 0-10 Numeric Is Patient Pain Free? Yes Yes - Nurse 3 - General Ulcer D/C NN Start: 09/29/22 14:23 Freq: Status: Active Protocol: Activity Type Activity Date Activity User E-sign Co-sign Detail Recorded Client Recorded Date Recorded By Document 09/29/22 15:23 MW [id number] 09/29/22 15:24 MW Document 10/06/22 14:57 KR [id number] 10/06/22 14:58 KR 09/29/22 10/06/22 15:23 14:57 Wound Care Nurse 3 #1- L HEEL -Ulcer Cleansing Not Cleansed Rinsed/ Irrigated with Saline -Foul Odor after Cleansing No -Negative Pressure Wound Therapy N/A -Primary Dressing Applied Promogran Adamaris Matter -Primary Dressing Covered/Secured with Dry Gauze & Dry Gauze,Dry Roll Gauze, Gauze & Roll Secured with Gauze,Secured Tape with Tape -Other Covering abd -Promogran Adamaris Matter 1 Left -Lotion applied to leg before No compression wrap -Tubular Bandage Single Layer -Size of Tubigrip Used Size E -Size E ($) 1 Treatment Response Procedure Tolerated Well Pain Scale: 0-10 Numeric Is Patient Pain Free? Yes Yes Teaching: Wound Center Dressing Your Wound -Person Taught Patient,Family -Teaching Method Discussion, Demonstration -Response to teaching Verbalize understanding WC - Visit Discharge Discharge Condition Stable Stable Ambulatory Status Wheelchair Ambulatory Transportation Private Auto Private Auto Accompanied by Medication Reconcilliation completed & No provided to patient/care provider Clinical Summary of Care Provided Yes Notes: Gauze Dressing / ABD pad applied per Leon Shah RNnetbackup engineer/Plan Assessment/Plan (1) Diabetic ulcer of left foot: CODE(S): E11.621 - Type 2 diabetes mellitus with foot ulcer; L97.529 - Non-pressure chronic ulcer of other part of left foot with unspecified severity (2) Venous insufficiency (chronic) (peripheral): CODE(S): I87.2 - Venous insufficiency (chronic) (peripheral) (3) Localized edema: CODE(S): R60.0 - Localized edema (4) Type 2 diabetes mellitus with diabetic polyneuropathy: CODE(S): E11.42 - Type 2 diabetes mellitus with diabetic polyneuropathy (5) Type 2 diabetes mellitus with foot ulcer: CODE(S): E11.621 - Type 2 diabetes mellitus with foot ulcer; L97.509 - Non-pressure chronic ulcer of other part of unspecified foot with unspecified severity (6) History of diabetes mellitus: CODE(S): Z86.39 - Personal history of other endocrine, nutritional and metabolic disease PLAN: Plan Patient was evaluated at the wound healing center today. A subcutaneous debridement was performed as documented. Patient has been hospitalized a couple times and has been in [facility] for rehab. He states he is going home tomorrow. Wound care - The Epifix treatment had been delayed due a couple hospitalizations and being placed in rehab[facility]. He has had 6 applications of Epifix. Will put that on hold and start Moistened Adamaris covered with gauze every other day after washing with soap and water. Compression - Single tubigrip. Off loading - Cam walker., walks with walker. He still needs to [facility] have his Cam walker modified to prevent pressure to this ulcer. Vascular: Abnormal blood flow studies noted. To follow up with vascular referral to Dr. Julian. Prior intervention noted. He continues on plavix.? He is noncompressible vessels and EKTA was not calculated.? His toe brachial index on the left side is 0.22 and I do not recommend total contact cast application until adequate perfusion is confirmed. He is diabetic, encouraged diet high in protein with low carbohydrates and to take his medication to help control his blood sugars. He is now home and is doing well. Follow up one week.
[2022-10-13 13:52] VITALS: BP 105/63; PULSE 84; RESP 22; TEMP 36; BMI 41.1
--- NOTE | 2022-10-13 15:23 | PCM.WC.PN ---
History of Present Illness Date of Service: 10/13/22 Chief Complaint: left foot ulcer History of Wound: This 62-year-old male with significant past medical history of diabetes with neuropathy peripheral vascular disease, debility, prior PEG tube (not current), arrhythmia, restrictive airway disease, history of heart failure and cardiac stent placement, hypertension, GERD, sleep apnea and mood disorder is following up today from the hospital for a left foot ulcer. He relates the onset of the ulcer was 05-13-2022 after a blister occurred. He was treated for cellulitis with IV and then oral antibiotics during recent [facility] admission. He was referred to see vascular specialist after having abnormal arterial findings in which he did not proceed forward with yet. He has trouble with debility and difficulty walking in the outpatient setting and was recently in a assisted facility the past month undergoing rehab. That is why he has not had epi fix applied. Patient fell 08/30/22 and was admitted for weakness and his family inability to care for him. He was transferred on 09/01/22 to [place] for rehab. Wound care - He has had 6 applications of Epifix. Will put that on hold and start Moistened Adamaris covered with gauze every other day. Progress of Wound: Left lateral plantar heel ulcer bed has a beefy pink wound bed, the ulcer is not improving. He continues to have a callus surrounding the ulcer. He has and appointment later today to get his Cam walker revised. Objective Data Objective Data Vital Signs: Vital Signs Temp Pulse Resp BP O2 Del Method O2 Flow Rate 96.8 F L 84 22 H 105/63 Nasal Cannula 3 10/13/22 13:52 10/13/22 13:52 10/13/22 13:52 10/13/22 13:52 10/06/22 14:28 10/13/22 13:52 Oxygen Flow Rate (L/min) 3 Oxygen Delivery Method Nasal Cannula Weight: 287 lb Body Mass Index (BMI) 41.1 Charges/Coding Procedures Integumentary 111xxx-113xx: 14485 Gabriela subq tissue 20 sq cm/< Debridement Note Debridement Note Wound debrided: lateral heel ulcer Laterality: Left Type of Debridement: Excisional debridement Anesthesia Used: 5% Lidocaine Gel Depth: Down to and including healthy tissue and in the subcutaneous layer Percentage of wound debrided: 100 Instrument Used: 3mm curette and - (scissors and pickups) Tissue Removed: Devitalized tissue and slough Severity: Fat Layer Exposed Amount of bleeding with debridement: Mild Bleeding Controlled with: Compression and gauze Patient tolerated procedure: Patient tolerated procedure well Post-Debridement Measurements and Additional Note: Post-Debridement Measurements/Treatment WC - Nurse 1 - General Ulcer Assessment Start: 09/29/22 14:23 Freq: Status: Active Protocol: SARAH Activity Type Activity Date Activity User E-sign Co-sign Detail Recorded Client Recorded Date Recorded By Document 09/29/22 14:23 BMF [id number] 09/29/22 14:31 BMF Edit Result 09/29/22 14:23 BMF (1) [id number] 09/29/22 14:33 BMF Document 10/06/22 14:28 MW [id number] 10/06/22 14:30 MW Document 10/13/22 13:52 DL [id number] 10/13/22 14:00 DL (1) Temperature (97.8 F-99.1 F) => 97.5 F L Pulse Rate (60-100) => 71 Respiratory Rate (12-18) => 22 H Respiratory rate source => Observation Blood Pressure (90/60-120/80) => 160/60 H Blood Pressure Mean (mm Hg) => 93 09/29/22 10/06/22 10/13/22 14:23 14:28 13:52 - Today's Visit Information Type of service Follow-up Visit Follow-up Visit Follow-up Visit (Physician/CLOTH FINISHING RANGE OPERATOR CHIEF (Physician/CLOTH FINISHING RANGE OPERATOR CHIEF (Physician/CLOTH FINISHING RANGE OPERATOR CHIEF ) ) ) Arrival Mode Wheelchair Wheelchair Wheelchair Transfer Assistance None Manual Manual Transfer Assist (Other) x2 Accompanied by Patient Identification Verified (Name & Yes Yes Yes ) Patient Requires Transmission-Based No No No Precautions Safety Precautions Fall Prevention Height and Weight Body Mass Index (BMI) 41.1 41.1 41.1 BMI Classification Obese Obese Obese Vital Signs Temperature (97.8 F-99.1 F) 97.5 F L 96.3 F L 96.8 F L Temperature Source Temporal Temporal Temporal Pulse Rate (60-100) 71 68 84 Pulse Location Monitor Monitor Monitor Respiratory Rate (12-18) 22 H 20 H 22 H Respiratory rate source Observation Observation Observation Oxygen Delivery Method Nasal Cannula O2 L/MIN (L/min) 4 3 Blood Pressure (90/60-120/80) 160/60 H 110/57 L 105/63 Blood Pressure Mean (mm Hg) 93 74 77 Source Monitor Monitor Monitor Position Sitting Sitting Blood Pressure Location Left Arm History Since Last Visit- (Skip if this is Patient's initial visit) Have you changed medications since your No No last visit? Any new allergies or adverse reactions No No Had a fall/change in ADL's that may No No increase risk of falls Signs or symptoms of abuse and/or No No neglect since last visit Have you been in the hospital since your No No last visit? Has dressing in place as prescribed Yes Yes Has compression in place as prescribed N/A Yes Has offloadiing in place as prescribed N/A N/A Experienced any changes in pain level or No No management Left Footwear Removable Cast Removable Cast Walker/Walking Walker/Walking Boot Boot Right Footwear Regular Shoe Pain Scale: 0-10 Numeric Is Patient Pain Free? Yes Yes Yes WC - Nurse 1 - General Ulcer Measurement Start: 09/29/22 14:23 Freq: Status: Active Protocol: Activity Type Activity Date Activity User E-sign Co-sign Detail Recorded Client Recorded Date Recorded By Document 09/29/22 14:23 [facility] [id number] 09/29/22 14:31 [facility] Document 10/06/22 14:30 MW [id number] 10/06/22 14:31 MW Document 10/13/22 13:52 DL [id number] 10/13/22 14:00 DL Edit Result 10/13/22 13:52 DL (1) [id number] 10/13/22 14:14 DL (1) #1- L HEEL - Current Size (cm) - Length => 1.6 - Current Size (cm) - Width => 1.2 - Current Size (cm) - Depth => 0.2 - Total Square Cm => 1.92 09/29/22 10/06/22 10/13/22 14:23 14:30 13:52 Wound Center Nurse 1 #1- L HEEL -Combined with other wound No -Current Size (cm) - Length 0.8 0.8 1.6 -Current Size (cm) - Width 0.7 0.8 1.2 -Current Size (cm) - Depth 0.2 0.2 0.2 -Total Square Cm 0.56 0.64 1.92 -Photo Taken Yes No No -Epithelialization Small 1-33% -Undermining/Tunneling No -Circular Undermining No -Exudate Amt Medium Small Small -Exudate Type Serosanguineous Serosanguineous Serosanguineous -Wound Margin Distinct, Flat & Intact Distinct, Outline Outline Attached Attached -Granulation Amt None Present (0 Medium (34-66%) Medium (34-66%) %) -Granulation Quality [place] Red -Slough/Fibrin Yes -Necrosis Amt Large (67-100%) Medium (34-66%) Medium (34-66%) -Necrotic Tissue Type Adherent Slough Adherent Slough Adherent Slough -Structure Exposed N/A N/A N/A -Texture (Sammi-wound Skin Appearance) Scarring Assessed Scarring -Moisture (Sammi-wound Skin Appearance) Maceration Assessed,Dry/ Dry/Scaly Scaly -Color (Sammi-wound Skin Appearance) Erythema No Abnormality, No Abnormality Assessed -Temperature (Sammi-wound Skin No Abnormality No Abnormality No Abnormality Appearance) (Pt Warm) (Pt Warm) (Pt Warm) -Tenderness on Palpation (Sammi-wound No No No Skin Appearance) -Ulcer Cleansing Soap and Water Rinsed/ Soap and Water Irrigated with Saline -Foul Odor after Cleansing No No No -Anesthetic Used 5% Lidocaine 5% Lidocaine 5% Lidocaine Gel Gel Gel Lower Limb Edema Present No Left Calf (cm) 40.5 Left Ankle (cm) 25 WC - Nurse 2 - General Ulcer CM Notes Start: 09/29/22 14:23 Freq: Status: Active Protocol: Activity Type Activity Date Activity User E-sign Co-sign Detail Recorded Client Recorded Date Recorded By Document 09/29/22 14:57 [id number] 09/29/22 15:08 Document 10/06/22 14:43 [id number] 10/06/22 14:50 Document 10/13/22 14:14 [id number] 10/13/22 14:17 09/29/22 10/06/22 10/13/22 14:57 14:43 14:14 Wound Center Nurse 2 #1- L HEEL -Time 14:57 14:48 14:14 -Correct Patient Yes Yes Yes -Correct Side, Site, Position Yes Yes Yes -Correct Procedure Yes Yes Yes -Procedure Performed Yes Yes Yes -Type of Procedure Debridement Debridement Debridement -Clinical Debridement Subcutaneous Subcutaneous Subcutaneous -Tissue Removed Subcutaneous Subcutaneous Subcutaneous -Post Debridement (cm) - Length 1.3 1.5 1.1 -Post Debridement (cm) - Width 1.4 1.5 1.6 -Post Debridement (cm) - Depth 0.2 0.2 0.2 -Total Square (Post) (cm) 1.82 2.25 1.76 -Area of Debridement (cm) - Length 1.3 1.5 1.1 -Area of Debridement (cm) - Width 1.4 1.5 1.6 -Total Square (Area) (cm) 1.82 2.25 1.76 -Tunneling No No No -Undermining/Tunneling No No No -Circular Undermining No No No -Wound/Ulcer Outcome Not Healed Not Healed Not Healed -Ulcer Cleansing Rinsed/ Rinsed/ Rinsed/ Irrigated with Irrigated with Irrigated with Saline Saline Saline -Foul Odor after Cleansing No No No -Bioengineered Tissue Yes No No -Type of Bioengineered Tissue Epifix 18mm Disc -Expiration Date 06/29/27 -Product Lot Number [id number] -Percent Used 100 -Lot number of Saline Used [id number] -Bleeding Controlled with Pressure Pressure Pressure -Treatment Response Procedure Procedure Procedure Tolerated Well Tolerated Well Tolerated Well -Offloading Yes Yes Yes -Type of Offloading Camwalker Camwalker Camwalker -Assistive Device(s) Wheelchair -Debridement - Subq, 1st 20sq cm No Yes Yes -Apply Skin Sub - 1st 25 sq cm - Feet 1 -Epifix 18mm Disc 3 Pain Scale: 0-10 Numeric Is Patient Pain Free? Yes Yes Yes - Nurse 3 - General Ulcer D/C NN Start: 09/29/22 14:23 Freq: Status: Active Protocol: Activity Type Activity Date Activity User E-sign Co-sign Detail Recorded Client Recorded Date Recorded By Document 09/29/22 15:23 MW [id number] 09/29/22 15:24 MW Document 10/06/22 14:57 KR [id number] 10/06/22 14:58 KR Document 10/13/22 14:38 DL [id number] 10/13/22 14:39 DL 09/29/22 10/06/22 10/13/22 15:23 14:57 14:38 Wound Care Nurse 3 #1- L HEEL -Ulcer Cleansing Not Cleansed Rinsed/ Rinsed/ Irrigated with Irrigated with Saline Saline -Foul Odor after Cleansing No No -Negative Pressure Wound Therapy N/A -Primary Dressing Applied Promogran Promogran Adamaris Matter Adamaris Matter -Primary Dressing Covered/Secured with Dry Gauze & Dry Gauze,Dry Dry Gauze & Roll Gauze, Gauze & Roll Roll Gauze, Secured with Gauze,Secured Secured with Tape with Tape Tape -Other Covering abd -Promogran Adamaris Matter 1 1 Left -Lotion applied to leg before No compression wrap -Tubular Bandage Single Layer Single Layer -Size of Tubigrip Used Size E Size E -Size E ($) 1 1 Treatment Response Procedure Procedure Tolerated Well Tolerated Well Pain Scale: 0-10 Numeric Is Patient Pain Free? Yes Yes Yes Teaching: Wound Center Dressing Your Wound -Person Taught Patient,Family -Teaching Method Discussion, Demonstration -Response to teaching Verbalize understanding WC - Visit Discharge Discharge Condition Stable Stable Stable Ambulatory Status Wheelchair Ambulatory Wheelchair Transportation Private Auto Private Auto Private Auto Accompanied by Medication Reconcilliation completed & No provided to patient/care provider Clinical Summary of Care Provided Yes Notes: Gauze Dressing / ABD pad applied per Leon Shah RNchild support investigator/Plan Assessment/Plan (1) Diabetic ulcer of left foot: CODE(S): E11.621 - Type 2 diabetes mellitus with foot ulcer; L97.529 - Non-pressure chronic ulcer of other part of left foot with unspecified severity (2) Venous insufficiency (chronic) (peripheral): CODE(S): I87.2 - Venous insufficiency (chronic) (peripheral) (3) Localized edema: CODE(S): R60.0 - Localized edema (4) Type 2 diabetes mellitus with diabetic polyneuropathy: CODE(S): E11.42 - Type 2 diabetes mellitus with diabetic polyneuropathy (5) Type 2 diabetes mellitus with foot ulcer: CODE(S): E11.621 - Type 2 diabetes mellitus with foot ulcer; L97.509 - Non-pressure chronic ulcer of other part of unspecified foot with unspecified severity (6) History of diabetes mellitus: CODE(S): Z86.39 - Personal history of other endocrine, nutritional and metabolic disease PLAN: Plan Patient was evaluated at the wound healing center today. A subcutaneous debridement was performed as documented. Patient has been hospitalized a couple times and has been in [place] for rehab. He states he is going home tomorrow. Wound care - The Epifix treatment had been delayed due a couple hospitalizations and being placed in rehab/assisted. He has had 6 applications of Epifix. Will keep that on hold and continue Moistened Adamaris covered with gauze/ABD 3 times per week after washing with soap and water. Compression - Single tubigrip. Off loading - Cam walker, walks with walker. He has and appointment today to go [facility] to have his Cam walker modified to prevent pressure to this ulcer. Vascular: Abnormal blood flow studies noted. To follow up with vascular referral to Dr. Julian. Prior intervention noted. He continues on plavix.? He is noncompressible vessels and EKTA was not calculated.? His toe brachial index on the left side is 0.22 and I do not recommend total contact cast application until adequate perfusion is confirmed. He is diabetic, encouraged diet high in protein with low carbohydrates and to take his medication to help control his blood sugars. He is now home and is doing well. Follow up two weeks, they are to call or come in sooner if they develop any concerns.
[2022-10-27 13:25] VITALS: BP 173/40; PULSE 78; RESP 16; TEMP 36.2; BMI 41.1
--- NOTE | 2022-10-27 15:20 | PCM.WC.PN ---
History of Present Illness Date of Service: 10/27/22 Chief Complaint: left foot ulcer History of Wound: This 62-year-old male with significant past medical history of diabetes with neuropathy peripheral vascular disease, debility, prior PEG tube (not current), arrhythmia, restrictive airway disease, history of heart failure and cardiac stent placement, hypertension, GERD, sleep apnea and mood disorder is following up today from the hospital for a left foot ulcer. He relates the onset of the ulcer was 05-13-2022 after a blister occurred. He was treated for cellulitis with IV and then oral antibiotics during recent [facility] admission. He was referred to see vascular specialist after having abnormal arterial findings in which he did not proceed forward with yet. He has trouble with debility and difficulty walking in the outpatient setting and was recently in a custodial facility the past month undergoing rehab. That is why he has not had epi fix applied. Patient fell 08/30/22 and was admitted for weakness and his family inability to care for him. He was transferred on 09/01/22 to [place] for rehab. Wound care - He has had 6 applications of Epifix. Will put that on hold and start Moistened Adamaris covered with gauze every other day. Progress of Wound: Left lateral plantar heel ulcer is much larger this week. It is also causing him increase discomfort. There is an increase in drainage. Wound bed is a pale pink. He had his off loading boot modified last week. Objective Data Objective Data Vital Signs: Vital Signs Temp Pulse Resp BP O2 Del Method O2 Flow Rate 97.2 F L 78 16 173/40 H Room Air 3 10/27/22 13:25 10/27/22 13:25 10/27/22 13:25 10/27/22 13:25 10/27/22 13:25 10/13/22 13:52 Oxygen Flow Rate (L/min) 3 Oxygen Delivery Method Room Air Weight: 287 lb Body Mass Index (BMI) 41.1 Charges/Coding Procedures Integumentary 111xxx-113xx: [id number] Gabriela subq tissue 20 sq cm/< Debridement Note Debridement Note Wound debrided: lateral heel ulcer Laterality: Left Wound Grade/Stage: Stage III Type of Debridement: Excisional debridement Anesthesia Used: 5% Lidocaine Gel Depth: Down to and including healthy tissue and in the subcutaneous layer Percentage of wound debrided: 100 Instrument Used: 7mm curette Tissue Removed: Devitalized tissue and slough Severity: Fat Layer Exposed Amount of bleeding with debridement: Mild Bleeding Controlled with: Compression and gauze Patient tolerated procedure: Patient tolerated procedure well Post-Debridement Measurements and Additional Note: Post-Debridement Measurements/Treatment - Nurse 1 - General Ulcer Assessment Start: 09/29/22 14:23 Freq: Status: Active Protocol: [email or web address] Activity Type Activity Date Activity User E-sign Co-sign Detail Recorded Client Recorded Date Recorded By Document 09/29/22 14:23 BMF [id number] 09/29/22 14:31 BMF Edit Result 09/29/22 14:23 BMF (1) [id number] 09/29/22 14:33 BMF Document 10/06/22 14:28 MW [id number] 10/06/22 14:30 MW Document 10/13/22 13:52 DL [id number] 10/13/22 14:00 DL Document 10/27/22 13:25 DL [id number] 10/27/22 13:32 DL (1) Temperature (97.8 F-99.1 F) => 97.5 F L Pulse Rate (60-100) => 71 Respiratory Rate (12-18) => 22 H Respiratory rate source => Observation Blood Pressure (90/60-120/80) => 160/60 H Blood Pressure Mean (mm Hg) => 93 09/29/22 10/06/22 10/13/22 14:23 14:28 13:52 - Today's Visit Information Type of service Follow-up Visit Follow-up Visit Follow-up Visit (Physician/ADVANCED RESEARCH PROGRAMS DIRECTOR (Physician/ADVANCED RESEARCH PROGRAMS DIRECTOR (Physician/ADVANCED RESEARCH PROGRAMS DIRECTOR ) ) ) Arrival Mode Wheelchair Wheelchair Wheelchair Transfer Assistance None Manual Manual Transfer Assist (Other) x2 Accompanied by Patient Identification Verified (Name & Yes Yes Yes ) Patient Requires Transmission-Based No No No Precautions Safety Precautions Fall Prevention Height and Weight Body Mass Index (BMI) 41.1 41.1 41.1 BMI Classification Obese Obese Obese Vital Signs Temperature (97.8 F-99.1 F) 97.5 F L 96.3 F L 96.8 F L Temperature Source Temporal Temporal Temporal Pulse Rate (60-100) 71 68 84 Pulse Location Monitor Monitor Monitor Respiratory Rate (12-18) 22 H 20 H 22 H Respiratory rate source Observation Observation Observation Oxygen Delivery Method Nasal Cannula O2 L/MIN (L/min) 4 3 Blood Pressure (90/60-120/80) 160/60 H 110/57 L 105/63 Blood Pressure Mean (mm Hg) 93 74 77 Source Monitor Monitor Monitor Position Sitting Sitting Blood Pressure Location Left Arm History Since Last Visit- (Skip if this is Patient's initial visit) Have you changed medications since your No No last visit? Any new allergies or adverse reactions No No Had a fall/change in ADL's that may No No increase risk of falls Signs or symptoms of abuse and/or No No neglect since last visit Have you been in the hospital since your No No last visit? Has dressing in place as prescribed Yes Yes Has compression in place as prescribed N/A Yes Has offloadiing in place as prescribed N/A N/A Experienced any changes in pain level or No No management Left Footwear Removable Cast Removable Cast Walker/Walking Walker/Walking Boot Boot Right Footwear Regular Shoe Pain Scale: 0-10 Numeric Is Patient Pain Free? Yes Yes Yes 10/27/22 13:25 WC - Today's Visit Information Type of service Follow-up Visit (Physician/ADVANCED RESEARCH PROGRAMS DIRECTOR ) Arrival Mode Wheelchair Transfer Assistance Other Transfer Assist (Other) 2 Accompanied by Patient Identification Verified (Name & Yes ) Patient Requires Transmission-Based No Precautions Safety Precautions Height and Weight Body Mass Index (BMI) 41.1 BMI Classification Obese Vital Signs Temperature (97.8 F-99.1 F) 97.2 F L Temperature Source Temporal Pulse Rate (60-100) 78 Pulse Location Monitor Respiratory Rate (12-18) 16 Respiratory rate source Observation Oxygen Delivery Method Room Air O2 L/MIN (L/min) Blood Pressure (90/60-120/80) 173/40 H Blood Pressure Mean (mm Hg) 84 Source Monitor Position Sitting Blood Pressure Location Left Forearm History Since Last Visit- (Skip if this is Patient's initial visit) Have you changed medications since your No last visit? Any new allergies or adverse reactions No Had a fall/change in ADL's that may Yes increase risk of falls Signs or symptoms of abuse and/or No neglect since last visit Have you been in the hospital since your No last visit? Has dressing in place as prescribed Yes Has compression in place as prescribed Yes Has offloadiing in place as prescribed N/A Experienced any changes in pain level or No management Left Footwear Removable Cast Walker/Walking Boot Right Footwear Diabetic Shoe Pain Scale: 0-10 Numeric Is Patient Pain Free? Yes WC - Nurse 1 - General Ulcer Measurement Start: 09/29/22 14:23 Freq: Status: Active Protocol: Activity Type Activity Date Activity User E-sign Co-sign Detail Recorded Client Recorded Date Recorded By Document 09/29/22 14:23 BMF [id number] 09/29/22 14:31 BMF Document 10/06/22 14:30 MW [id number] 10/06/22 14:31 MW Document 10/13/22 13:52 DL [id number] 10/13/22 14:00 DL Edit Result 10/13/22 13:52 DL (1) [id number] 10/13/22 14:14 DL Document 10/27/22 13:25 DL [id number] 10/27/22 13:32 DL (1) #1- L HEEL - Current Size (cm) - Length => 1.6 - Current Size (cm) - Width => 1.2 - Current Size (cm) - Depth => 0.2 - Total Square Cm => 1.92 09/29/22 10/06/22 10/13/22 14:23 14:30 13:52 Wound Center Nurse 1 #1- L HEEL -Combined with other wound No -Current Size (cm) - Length 0.8 0.8 1.6 -Current Size (cm) - Width 0.7 0.8 1.2 -Current Size (cm) - Depth 0.2 0.2 0.2 -Total Square Cm 0.56 0.64 1.92 -Date of Last Picture (Recall this field) -Photo Taken Yes No No -Epithelialization Small 1-33% -Tunneling -Undermining/Tunneling No -Circular Undermining No -Exudate Amt Medium Small Small -Exudate Type Serosanguineous Serosanguineous Serosanguineous -Wound Margin Distinct, Flat & Intact Distinct, Outline Outline Attached Attached -Granulation Amt None Present (0 Medium (34-66%) Medium (34-66%) %) -Granulation Quality Mooar Red -Slough/Fibrin Yes -Necrosis Amt Large (67-100%) Medium (34-66%) Medium (34-66%) -Necrotic Tissue Type Adherent Slough Adherent Slough Adherent Slough -Structure Exposed N/A N/A N/A -Texture (Sammi-wound Skin Appearance) Scarring Assessed Scarring -Moisture (Sammi-wound Skin Appearance) Maceration Assessed,Dry/ Dry/Scaly Scaly -Color (Sammi-wound Skin Appearance) Erythema No Abnormality, No Abnormality Assessed -Temperature (Sammi-wound Skin No Abnormality No Abnormality No Abnormality Appearance) (Pt Warm) (Pt Warm) (Pt Warm) -Tenderness on Palpation (Sammi-wound No No No Skin Appearance) -Ulcer Cleansing Soap and Water Rinsed/ Soap and Water Irrigated with Saline -Foul Odor after Cleansing No No No -Anesthetic Used 5% Lidocaine 5% Lidocaine 5% Lidocaine Gel Gel Gel Lower Limb Edema Present No Left Calf (cm) 40.5 Left Ankle (cm) 25 10/27/22 13:25 Wound Center Nurse 1 #1- L HEEL -Combined with other wound No -Current Size (cm) - Length 3 -Current Size (cm) - Width 3 -Current Size (cm) - Depth 0.2 -Total Square Cm 9 -Date of Last Picture (Recall this 10/27/22 field) -Photo Taken Yes -Epithelialization None Present -Tunneling No -Undermining/Tunneling No -Circular Undermining No -Exudate Amt Medium -Exudate Type Yellow/Green -Wound Margin Distinct, Outline Attached -Granulation Amt Small (1-33%) -Granulation Quality Red -Slough/Fibrin Yes -Necrosis Amt Large (67-100%) -Necrotic Tissue Type Adherent Slough -Structure Exposed -Texture (Sammi-wound Skin Appearance) Assessed, Scarring -Moisture (Sammi-wound Skin Appearance) Assessed -Color (Sammi-wound Skin Appearance) Assessed, Erythema -Temperature (Sammi-wound Skin No Abnormality Appearance) (Pt Warm) -Tenderness on Palpation (Sammi-wound Yes Skin Appearance) -Ulcer Cleansing Soap and Water -Foul Odor after Cleansing No -Anesthetic Used 4% Lidocaine Solution Lower Limb Edema Present Yes Left Calf (cm) 39.5 Left Ankle (cm) 24.7 WC - Nurse 2 - General Ulcer CM Notes Start: 09/29/22 14:23 Freq: Status: Active Protocol: Activity Type Activity Date Activity User E-sign Co-sign Detail Recorded Client Recorded Date Recorded By Document 09/29/22 14:57 [id number] 09/29/22 15:08 Document 10/06/22 14:43 [id number] 10/06/22 14:50 Document 10/13/22 14:14 [id number] 10/13/22 14:17 Document 10/27/22 13:45 [id number] 10/27/22 13:54 09/29/22 10/06/22 10/13/22 14:57 14:43 14:14 Wound Center Nurse 2 #1- L HEEL -Time 14:57 14:48 14:14 -Correct Patient Yes Yes Yes -Correct Side, Site, Position Yes Yes Yes -Correct Procedure Yes Yes Yes -Procedure Performed Yes Yes Yes -Type of Procedure Debridement Debridement Debridement -Clinical Debridement Subcutaneous Subcutaneous Subcutaneous -Tissue Removed Subcutaneous Subcutaneous Subcutaneous -Post Debridement (cm) - Length 1.3 1.5 1.1 -Post Debridement (cm) - Width 1.4 1.5 1.6 -Post Debridement (cm) - Depth 0.2 0.2 0.2 -Total Square (Post) (cm) 1.82 2.25 1.76 -Area of Debridement (cm) - Length 1.3 1.5 1.1 -Area of Debridement (cm) - Width 1.4 1.5 1.6 -Total Square (Area) (cm) 1.82 2.25 1.76 -Tunneling No No No -Undermining/Tunneling No No No -Circular Undermining No No No -Wound/Ulcer Outcome Not Healed Not Healed Not Healed -Ulcer Cleansing Rinsed/ Rinsed/ Rinsed/ Irrigated with Irrigated with Irrigated with Saline Saline Saline -Foul Odor after Cleansing No No No -Bioengineered Tissue Yes No No -Type of Bioengineered Tissue Epifix 18mm Disc -Expiration Date 06/29/27 -Product Lot Number [id number] -Percent Used 100 -Lot number of Saline Used [id number] -Bleeding Controlled with Pressure Pressure Pressure -Treatment Response Procedure Procedure Procedure Tolerated Well Tolerated Well Tolerated Well -Offloading Yes Yes Yes -Type of Offloading Camwalker Camwalker Camwalker -Assistive Device(s) Wheelchair -Debridement - Subq, 1st 20sq cm No Yes Yes -Apply Skin Sub - 1st 25 sq cm - Feet 1 -Epifix 18mm Disc 3 Pain Scale: 0-10 Numeric Is Patient Pain Free? Yes Yes Yes 10/27/22 13:45 Wound Center Nurse 2 #1- L HEEL -Time 13:47 -Correct Patient Yes -Correct Side, Site, Position Yes -Correct Procedure Yes -Procedure Performed Yes -Type of Procedure Debridement -Clinical Debridement Subcutaneous -Tissue Removed Subcutaneous -Post Debridement (cm) - Length 3.3 -Post Debridement (cm) - Width 3.0 -Post Debridement (cm) - Depth 0.3 -Total Square (Post) (cm) 9.90 -Area of Debridement (cm) - Length 3.3 -Area of Debridement (cm) - Width 3.0 -Total Square (Area) (cm) 9.90 -Tunneling No -Undermining/Tunneling No -Circular Undermining No -Wound/Ulcer Outcome Not Healed -Ulcer Cleansing Rinsed/ Irrigated with Saline -Foul Odor after Cleansing No -Bioengineered Tissue No -Type of Bioengineered Tissue -Expiration Date -Product Lot Number -Percent Used -Lot number of Saline Used -Bleeding Controlled with Pressure -Treatment Response Procedure Tolerated Well -Offloading Yes -Type of Offloading Camwalker -Assistive Device(s) -Debridement - Subq, 1st 20sq cm Yes -Apply Skin Sub - 1st 25 sq cm - Feet -Epifix 18mm Disc Pain Scale: 0-10 Numeric Is Patient Pain Free? Yes - Nurse 3 - General Ulcer D/C NN Start: 09/29/22 14:23 Freq: Status: Active Protocol: Activity Type Activity Date Activity User E-sign Co-sign Detail Recorded Client Recorded Date Recorded By Document 09/29/22 15:23 MW [id number] 09/29/22 15:24 MW Document 10/06/22 14:57 KR [id number] 10/06/22 14:58 KR Document 10/13/22 14:38 DL [id number] 10/13/22 14:39 DL Document 10/27/22 14:10 [facility] [id number] 10/27/22 14:10 [facility] 09/29/22 10/06/22 10/13/22 15:23 14:57 14:38 Wound Care Nurse 3 #1- L HEEL -Ulcer Cleansing Not Cleansed Rinsed/ Rinsed/ Irrigated with Irrigated with Saline Saline -Foul Odor after Cleansing No No -Negative Pressure Wound Therapy N/A -Primary Dressing Applied Promogran Promogran Adamaris Matter Adamaris Matter -Primary Dressing Covered/Secured with Dry Gauze & Dry Gauze,Dry Dry Gauze & Roll Gauze, Gauze & Roll Roll Gauze, Secured with Gauze,Secured Secured with Tape with Tape Tape -Other Covering abd -Promogran Adamaris Matter 1 1 -Silvercel Left -Lotion applied to leg before No compression wrap -Tubular Bandage Single Layer Single Layer -Size of Tubigrip Used Size E Size E -Size E ($) 1 1 Treatment Response Procedure Procedure Tolerated Well Tolerated Well Pain Scale: 0-10 Numeric Is Patient Pain Free? Yes Yes Yes Teaching: Wound Center Dressing Your Wound -Person Taught Patient,Family -Teaching Method Discussion, Demonstration -Response to teaching Verbalize understanding WC - Visit Discharge Discharge Condition Stable Stable Stable Ambulatory Status Wheelchair Ambulatory Wheelchair Transportation Private Auto Private Auto Private Auto Accompanied by Medication Reconcilliation completed & No provided to patient/care provider Clinical Summary of Care Provided Yes Notes: Gauze Dressing / ABD pad applied per Leon Shah RN 10/27/22 14:10 Wound Care Nurse 3 #1- L HEEL -Ulcer Cleansing Rinsed/ Irrigated with Saline -Foul Odor after Cleansing No -Negative Pressure Wound Therapy -Primary Dressing Applied Silvercel -Primary Dressing Covered/Secured with Dry Gauze & Roll Gauze, Secured with Tape -Other Covering -Promogran Adamaris Matter -Silvercel 1 Left -Lotion applied to leg before compression wrap -Tubular Bandage Single Layer -Size of Tubigrip Used Size E -Size E ($) 1 Treatment Response Procedure Tolerated Well Pain Scale: 0-10 Numeric Is Patient Pain Free? Yes Teaching: Wound Center Dressing Your Wound -Person Taught -Teaching Method -Response to teaching WC - Visit Discharge Discharge Condition Stable Ambulatory Status Wheelchair Transportation Private Auto Accompanied by Medication Reconcilliation completed & provided to patient/care provider Clinical Summary of Care Provided Notes: Assessment/Plan Assessment/Plan (1) Diabetic ulcer of left foot: CODE(S): E11.621 - Type 2 diabetes mellitus with foot ulcer; L97.529 - Non-pressure chronic ulcer of other part of left foot with unspecified severity (2) Venous insufficiency (chronic) (peripheral): CODE(S): I87.2 - Venous insufficiency (chronic) (peripheral) (3) Localized edema: CODE(S): R60.0 - Localized edema (4) Type 2 diabetes mellitus with diabetic polyneuropathy: CODE(S): E11.42 - Type 2 diabetes mellitus with diabetic polyneuropathy (5) Type 2 diabetes mellitus with foot ulcer: CODE(S): E11.621 - Type 2 diabetes mellitus with foot ulcer; L97.509 - Non-pressure chronic ulcer of other part of unspecified foot with unspecified severity (6) History of diabetes mellitus: CODE(S): Z86.39 - Personal history of other endocrine, nutritional and metabolic disease PLAN: Plan Patient was evaluated at the wound healing center today. Patient has been hospitalized a couple times and has been in [place] for rehab. Wound care - The Epifix treatment had been delayed due a couple hospitalizations and being placed in rehab/custodial. He has had 6 applications of Epifix. Aquacel-Ag covered with gauze daily after washing with soap and water. Compression - Single tubigrip. Off loading - Cam walker, walks with walker. He [facility], contacted them to have him be seen this week for further modification. Having the patient completely off load would be ideal, but he is not ambulating well and do not want to increase his fall risk. Wound culture obtained today, 10/27/22, depending on the results of the culture, it may necessitate the need for treatment with antibiotics. Vascular: Abnormal blood flow studies noted. To follow up with vascular referral to Dr. Julian. Prior intervention noted. He continues on plavix.? He is noncompressible vessels and EKTA was not calculated.? His toe brachial index on the left side is 0.22 and I do not recommend total contact cast application until adequate perfusion is confirmed. He is diabetic, encouraged diet high in protein with low carbohydrates and to take his medication to help control his blood sugars. He is now home, but has not received PT while being at home and his states he is starting to have issue ambulating again. Follow up one week, they are to call or come in sooner if they develop any concerns.
== END 2022-10-28 23:59 | disposition home or self-care (01) ==
LOC: WC 13:00
PROVIDERS: PCP Internal Medicine; Visit Provider Student in an Organized Health Care Education/Training Program
DX: E11.621 Type 2 diabetes mellitus with foot ulcer (principal); E11.51 Type 2 diabetes mellitus with diabetic peripheral angiopathy without gangrene; L97.422 Non-pressure chronic ulcer of left heel and midfoot with fat layer exposed; I11.0 Hypertensive heart disease with heart failure; I50.9 Heart failure, unspecified; E11.42 Type 2 diabetes mellitus with diabetic polyneuropathy; Z79.4 Long term (current) use of insulin; I87.2 Venous insufficiency (chronic) (peripheral); R26.2 Difficulty in walking, not elsewhere classified; R60.0 Localized edema; G47.30 Sleep apnea, unspecified; K21.9 Gastro-esophageal reflux disease without esophagitis; Z79.82 Long term (current) use of aspirin; Z79.02 Long term (current) use of antithrombotics/antiplatelets; Z95.5 Presence of coronary angioplasty implant and graft
CPT/HCPCS: 11042; 15275; 87070; 87075; 87077; 87186; 87205; Q4186

== ENCOUNTER 2022-10-28 11:57 | Emergency (ER) | payer MEDICARE, MEDICAID, SELFPAY ==
[2022-10-28 11:59] VITALS: BP 200/98; PULSE 120; RESP 18; TEMP 36.7; O2SAT 98; BMI 37.8
[2022-10-28 13:14] VITALS: BP 156/89; PULSE 74; RESP 15; O2SAT 98
--- NOTE | 2022-10-28 13:25 | RAD_ITS ---
STUDY: X-RAY CHEST REASON FOR EXAM: Male, 62 years old. Chest pain TECHNIQUE: Single AP portable view of the chest. COMPARISON: Comparison is made with prior study 08/30/2022. FINDINGS: EKG electrodes are seen. Stable elevation of the right hemidiaphragm. Persistent volume loss in the right middle lobe. There is no demonstrated pleural abnormality. Normal size heart. Normal mediastinum and pat. Normal visualized pulmonary arteries. Normal visualized aortic arch and descending thoracic aorta. Normal visualized thoracic spine. Normal visualized ribs, clavicles, and shoulders. There is no demonstrated abnormality of the visualized soft tissue structures of the upper abdomen. RAD/Chest 1 View (Portable) IMPRESSION: Elevation of the right hemidiaphragm with persistent volume loss in the right middle lobe. Electronically Signed: Den Carver MD at 13:50 EST ,
[2022-10-28 14:00] LABS: Absolute Lymphocyte Count 1.87 X10^3/uL (0.83-4.51); Absolute Neutrophil Count 9.8 X10^3/uL (2.0-7.7); Basophil# 0.04 X10^3/uL; Basophil% 0.3 % (0-1); Eosinophil# 0.19 X10^3/uL; Eosinophils% 1.5 % (0-5); Hematocrit 38.2 % (40-54); Lymphocyte # 1.87 X10^3/ul (0.83-4.51); Lymphocyte % 14.5 % (19-41); Mean Corp Hgb Conc 31.4 g/dL (32-36); Mean Corpuscular Hgb 27.8 pg (27.0-32.0); Mean Corpuscular Volume 88.4 fL (80-94); Mean Platelet Vol. 10.7 fl (6.2-12.0); Monocyte# 0.98 X10^3/uL; Monocyte% 7.6 % (0-10); NRBC Flagged by Analyzer 0 % (0-5); Neutrophil # 9.75 X10^3/uL (2.7-7.7); Neutrophil % 75.6 % (47-70); Platelet Count 233 K/mm3 (150-450); RBC Distribution Width CV 13.9 % (11.6-14.6); RBC Distribution Width SD 44.9 fl (35.1-43.9); Red Blood Count 4.32 M/mm3 (4.6-6.2); White Blood Count 12.9 K/mm3 (4.4-11.0)
--- NOTE | 2022-10-28 14:03 | EDS_ITS ---
HPI History of Present Illness Chief Complaint: Hypertension Detail of Chief Complaint: High blood pressure Informant: patient and spouse/S.O. Onset/Context/Timing Onset: Today Context: - (Unknown) Timing: Continuous Quality: Elevated blood pressure Location: Cardiovascular Current Severity: Moderate Maximum Severity: Moderate Worsened by: Nothing Relieved by: Nothing Associated Symptoms Associated Symptoms: Nothing Narrative Narrative: Patient is 62-year-old male with history of glaucoma and blindness left eye, COPD, coronary disease, type 2 diabetes, essential hypertension, GERD and peripheral vascular disease. He reported mild headache. He denies change in vision. Has been his use decreased hearing. Denies trouble speech or swallowin g. He does complain of tingling in his lower extremities due to neuropathy. He denies chest pain, shortness of breath, back pain. He denies urologic symptoms. He denies black or maroon-colored stool. He reports compliance with his medication. Prior similar symptoms: Yes Recent Illness/Hospitalization: No [facility] Medical History (Updated 10/28/22 @ 14:[address] Sebastien Maradiaga MD) Ambulates with cane Amputation of one or more toes Anxiety and depression Arrhythmia Arthritis Aspiration into airway Aspiration pneumonia Atherosclerotic heart disease of telida coronary artery without angina pectoris Bilateral leg weakness Blind left eye Blister (nonthermal), left foot, initial encounter Bronchiectasis with (acute) exacerbation Cardiology follow-up encounter Chronic cough Chronic respiratory failure with hypoxia COPD (chronic obstructive pulmonary disease) CPAP (continuous positive airway pressure) dependence Debility, unspecified Depression Diabetes Essential hypertension Gastric reflux GERD (gastroesophageal reflux disease) High cholesterol History of aspiration pneumonia History of diabetes mellitus History of echocardiogram History of edema History of gout History of heart attack History of non-ST elevation myocardial infarction (NSTEMI) (08/2016) History of pain when walking History of steroid therapy History of stress test Hyperglycemia due to type 2 diabetes mellitus Hypertension Insulin dependent diabetes mellitus Kidney stones Kidney stones Leg pain, right Leukocytosis Low back pain Memory impairment Migraines Mood disorder Myocardial infarct Non-smoker Noncompliance by declining intervention or support On home oxygen therapy Peripheral vascular occlusive disease Pneumonia Prostate disease Pulmonary nodule, left Recurrent falls Right ankle pain Right foot pain Shortness of breath on exertion Silent aspiration Sleep apnea Tremor Type 2 diabetes mellitus Type 2 diabetes mellitus with diabetic polyneuropathy Ulcer of left foot, limited to breakdown of skin 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 Wears glasses Wound of left lower extremity Home Medications acetaminophen 500 mg tablet 1,000 mg PO QHS PRN PRN Pain 1-10 Or Fever 02/11/21 [History Last Taken 05/14/22 18:50 1000] aspirin 81 mg tablet,delayed release (Adult Aspirin Regimen) 81 mg PO DAILY heart health 11/05/21 [History Last Taken 08/29/22 08:00] spironolactone 25 mg tablet 25 mg PO QHS diuretic 11/08/21 [History Last Taken 08/29/22 22:00] peg [id number] 1 %-0.2 %-0.2 % eye drops (Artificial Tears ([id number])) 2 drp EACH EYE Q1H PRN DRY EYES #0 mL 11/14/21 [Rx Last Taken Unknown] nitroglycerin 0.4 mg sublingual tablet 0.4 mg sublingual Q5M PRN Chest Pain #30 tabs 11/25/21 [Rx Last Taken Unknown] atorvastatin 80 mg tablet 80 mg PO QHS cholesterol #90 tabs 01/09/22 [Rx Last Taken 08/29/22 22:00] finasteride 5 mg tablet 5 mg PO DAILY prostate #90 tabs 01/09/22 [Rx Last Taken 08/29/22 22:00] furosemide 40 mg tablet 40 mg PO DAILY fluid #90 tabs 01/09/22 [Rx Last Taken 08/29/22 08:00] albuterol sulfate 90 mcg/actuation aerosol inhaler 2 puff inhalation Q4H PRN shortness of breath or wheezing #8.5 grams 02/04/22 [Rx Last Taken Unknown] pantoprazole 20 mg tablet,delayed release 20 mg PO DAILY gerd 02/04/22 [History Last Taken 08/29/22 08:00] carvedilol 12.5 mg tablet 12.5 mg PO BID heart #180 tabs 02/05/22 [Rx Last Taken 07/01/22] clopidogrel 75 mg tablet 75 mg PO DAILY blood thinner #90 tabs 03/30/22 [Rx Last Taken 08/29/22 08:00] isosorbide mononitrate 30 mg tablet,extended release 24 hr 30 mg PO DAILY heart #90 tabs 03/30/22 [Rx Last Taken 07/01/22] loratadine 10 mg tablet (Allergy Relief (loratadine)) 10 mg PO DAILY allergies 05/21/22 [History Last Taken 08/29/22 08:00] buspirone 7.5 mg tablet 15 mg PO TID mood #90 tabs 07/03/22 [Rx Last Taken 08/29/22 22:00] clonazepam 1 mg tablet 1 mg PO BID PRN PRN anxiety #14 tabs 07/03/22 [Rx Last Taken Unknown] fluoxetine 20 mg capsule 60 mg PO DAILY #0 caps 07/03/22 [Rx Last Taken 08/29/22 22:00] gauze bandage 4 X 4 (Bordered Gauze) #14 ea 07/03/22 [Rx Last Taken Unknown] nystatin 100,000 unit/gram topical powder (Nyamyc) 1 applic topical BID #0 grams 07/03/22 [Rx Last Taken Unknown] walker (Ultra-Light Rollator misc) #1 ea 07/21/22 [Rx Last Taken Unknown] metoclopramide HCl 5 mg tablet 5 mg PO TID #90 tabs 07/31/22 [Rx Last Taken 08/29/22 22:00] insulin lispro 100 unit/mL subcutaneous pen sliding scale dose subcut ACHS Check with primary doctor 08/12/22 [History Last Taken Unknown] amlodipine 5 mg tablet 10 mg PO DAILY #0 tabs 08/14/22 [Rx Last Taken 08/29/22 08:00] carvedilol 12.5 mg tablet 25 mg PO BID #0 tabs 08/14/22 [Rx Last Taken 08/29/22 22:00] arginine 7 gram-glutam 7 gram-CaHMB 1.5 ssrh-orwrs-cc-min oral pwd pkt (Aubrey (with collagen)) 1 packet PO BIDCM #0 ea 09/01/22 [Rx Last Taken Unknown] insulin glargine-yfgn 100 unit/mL (3 mL) subcutaneous pen 30 unit (0.3 mL) subcut BID #0 mL 09/01/22 [Rx Last Taken Unknown] insulin lispro 100 unit/mL subcutaneous pen (Humalog KwikPen (U-100) Insulin) 10 unit (0.1 mL) subcut TIDAC #0 mL 09/01/22 [Rx Last Taken Unknown] menthol 0.44 %-zinc oxide 20.6 % topical ointment (Calmoseptine) 1 applic topical BID #0 grams 09/01/22 [Rx Last Taken Unknown] polyethylene glycol 3350 17 gram oral powder packet 17 g PO DAILY #0 ea 09/01/22 [Rx Last Taken Unknown] pregabalin 75 mg capsule (Lyrica) 75 mg PO BID #60 caps 09/29/22 [Rx Last Taken Unknown] insulin detemir U-100 100 unit/mL (3 mL) subcutaneous pen (Levemir FlexTouch U- 100 Insulin) 44 unit (0.44 mL) subcut QHS #15 mL 10/14/22 [Rx Last Taken Unknown] losartan 50 mg tablet 25 mg PO DAILY bp 10/27/22 [History Last Taken Unknown] Allergy/AdvReac Type Severity Reaction Status Date / Time allopurinol AdvReac Vomiting Verified 10/28/22 11:58 Influenza Virus Vaccines AdvReac Vomiting Verified 10/28/22 11:58 pneumococcal vaccine AdvReac Vomiting Verified 10/28/22 11:58 Family History Mother Diabetes Heart disease CHF Father Heart disease RI/CAD Myocardial infarction Surgical History H/O lithotripsy History of angioplasty of peripheral vessel (2016) History of angioplasty of peripheral vessel History of ankle surgery History of cardiac catheterization History of coronary artery stent placement (08/2016) History of coronary artery stent placement History of esophagogastroduodenoscopy (EGD) History of left heart catheterization (11/15/17) History of thyroid surgery Hx of lithotripsy Hx of surgery to heart and great vessels, presenting hazards to health Hx of surgical procedure Hx of thyroidectomy Hx of toe surgery Hx of toe surgery PEG (percutaneous endoscopic gastrostomy) status Social History household members: spouse housing: apartment Smoking Status: Never smoker alcohol intake: never substance use type: does not use ROS ROS ED Constitutional Constitutional ED: Denies chills, fever(s), subjective, sweats or weight loss Eyes Eyes: Denies blurry vision, change in vision or diplopia ENT ENT ED: Denies ear pain, rhinorrhea or sore throat Cardiovascular Cardiovascular: Denies chest pain, orthopnea, palpitations, paroxysmal nocturnal dyspnea or racing heartbeat Respiratory/Chest Respiratory/Chest: Denies cough, dyspnea, dyspnea on exertion, orthopnea or paroxysmal nocturnal dyspnea Gastrointestinal Gastrointestinal: Denies abdominal pain, diarrhea, melena, nausea or vomiting Genitourinary Genitourinary ED: Denies dysuria, hematuria or urinary frequency Musculoskeletal Musculoskeletal: Denies arthralgias, back pain, myalgias or neck pain Neurologic Neurologic: Reports headache(s) and paresthesias; Denies weakness Psychiatric Psychiatric: Reports anxiety; Denies depression Endocrine Endocrinology: Denies cold intolerance, heat intolerance, polydipsia or polyuria Hematologic/Lymphatic Hematologic/Lymphatic: Denies easy bleeding or easy bruising EXAM Physical Exam Const Vital Signs: 10/28/22 11:59 10/28/22 13:14 10/28/22 13:14 Temperature 98.1 F Temperature Source Temporal Pulse Rate 120 H 74 Respiratory Rate 18 15 Respiratory Effort Respiratory Pattern Blood Pressure 200/98 H 156/89 H Blood Pressure Mean 132 111 Pulse Ox 98 98 98 Oxygen Delivery Method Nasal Cannula Nasal Cannula Nasal Cannula Oxygen Flow Rate (L/min) 3 4 4 10/28/22 13:14 Temperature Temperature Source Pulse Rate Respiratory Rate Respiratory Effort Normal Respiratory Pattern Normal Blood Pressure Blood Pressure Mean Pulse Ox Oxygen Delivery Method Oxygen Flow Rate (L/min) Positive well nourished, well developed, obese and unkempt General Appearance ED: unkempt, well developed and NAD; Negative for cyanotic, diaphoretic or pallor Nutritional Appearance: obese HEENT Reports moist mucous membranes HEENT Narrative: Nares patent. Ears normal. Uvula midline. No deviation with protrusion. Posterior pharynx unremarkable. Eyes PERRL and EOMs intact bilaterally General Eye ED: Negative for pale conjunctiva or scleral icterus Neck no lymphadenopathy, supple and no JVD Neck Narrative: Negative right or left carotid bruit Chest Wall inspection of chest normal and palpation of chest normal Resp normal respiratory effort and clear to auscultation bilaterally Cardio regular rate, regular rhythm, S1 normal heart sound, S2 normal heart sound and no murmurs GI normal to inspection, nondistended, normoactive bowel sounds, non-tender, non- distended and no masses; Negative for hepatosplenomegaly Back/Spine no CVA tenderness Extremity normal to inspection Extremity Narrative: Still pulses were palpable but diminished General Extremety ED: Negative for edema or tenderness General Extremity: Negative for edema Neuro oriented x3, CN's II-XII intact bilaterally and no sensory deficits noted Neuro Narrative: DTR symmetric upper and lower extremity. No clonus or Babinski sign Sensorium / Orientation: alert Motor Exam: strength 5/5 throughout Psych Appearance: unkempt Skin no rashes or lesions noted, no wounds and skin turgor normal General Skin Exam: elasticity normal; Negative for jaundice or pallor MDM MDM MDM Narrative Medical decision making narrative: Nurse protocol orders were initiated. Patient's most recent blood pressure is 124 systolic. Lab Data Attestation: I reviewed the patient's lab results. Labs: Laboratory Results - last 24 hr 10/28/22 10/28/22 10/28/22 13:55 13:55 13:55 WBC 12.9 H RBC 4.32 L Hgb 12.0 L Hct 38.2 L MCV 88.4 MCH 27.8 MCHC 31.4 L RDW Std Deviation 44.9 H RDW Coeff of James 13.9 Plt Count 233 MPV 10.7 Immature Gran % (Auto) 0.500 Neut % (Auto) 75.6 H Lymph % (Auto) 14.5 L Hayes % (Auto) 7.6 Eos % (Auto) 1.5 Baso % (Auto) 0.3 Absolute Neuts (auto) 9.8 H Absolute Lymphs (auto) 1.87 Nucleated RBC % 0 PT 14.5 INR 1.2 Sodium 139 Potassium 4.9 Chloride 104 Carbon Dioxide 32.0 Anion Gap 3 L BUN 20 H Creatinine 1.10 Estim Creat Clear Calc 70.97 Est GFR (MDRD) Af Amer 87 Est GFR (MDRD) Non-Af 72 BUN/Creatinine Ratio 18.2 Glucose 89 Calcium 9.4 Troponin I High Sens 13 Radiography Chest X-Ray - ED: 1 View, Read by ED Physician, Unchanged and Chronic Changes Diagnostic Testing: Clinical Impression(s) from Imaging Studies Chest X-Ray 10/28/22 13:25 IMPRESSION: Elevation of the right hemidiaphragm with persistent volume loss in the right middle lobe. Electronically Signed: Den Carver MD at 13:50 EST , Chest x-ray reveals elevated left hemidiaphragm. Borderline cardiomegaly. Cardiac silhouette unremarkable. Perihilar region unremarkable. Lung parenchyma is negative for acute process. There are chronic changes. Osseous structures are unremarkable. This was apparently reviewed and interpreted by me at 1339. EKG Initial EKG: Attestation: I personally reviewed and interpreted this EKG as follows: Interpretation: Sinus Rhythm (Sinus rhythm with a rate of 71 and respiratory variance. There is evidence of first-degree AV block with FL interval of 240 ms. QRS duration is 80 ms. QT duration is 426 ms. [place] was normal. Other than the respiratory variance and first-degree block the EKG is unremarkable.) Treatment and Re-Evaluation Narrative: Patient was informed of results. He was reevaluated 1422. Blood pressure is 112/64. Patient was discharged to home. Discharge Plan Triage Chief Complaint: Hypertension ED Provider: Sebastien Maradiaga Dx/Rx/DC Orders Clinical Impression: Accelerated essential hypertension, Other specified peripheral vascular diseases, Type 2 diabetes mellitus with diabetic polyneuropathy, Anxiety and depression, Atherosclerotic heart disease of telida coronary artery without angina pectoris Instructions: ED Hypertension, Established Prescriptions: No Action aspirin [Adult Aspirin Regimen] 81 mg tablet,delayed release (DR/EC) 81 mg PO DAILY atorvastatin 80 mg tablet 80 mg PO QHS Qty: 90 2RF furosemide 40 mg tablet 40 mg PO DAILY Qty: 90 3RF finasteride 5 mg tablet 5 mg PO DAILY Qty: 90 3RF pantoprazole 20 mg tablet,delayed release (DR/EC) 20 mg PO DAILY albuterol sulfate 90 mcg/actuation HFA aerosol inhaler 2 puff inhalation Q4H PRN (Reason: shortness of breath or wheezing) Qty: 8.5 3RF Rx Instructions: administer with spacer carvedilol 12.5 mg tablet 12.5 mg PO BID Qty: 180 3RF loratadine [Allergy Relief (loratadine)] 10 mg tablet 10 mg PO DAILY (DME) Ultra-Light Rollator Misc See Rx Instructions .Route Qty: 1 2RF Rx Instructions: As directed acetaminophen 500 MG tablet 1,000 mg PO QHS PRN PRN (Reason: Pain 1-10 Or Fever) spironolactone 25 mg tablet 25 mg PO QHS Artificial Tears([id number]) 1-0.2-0.2 % Drops 2 drp EACH EYE Q1H PRN (Reason: DRY EYES) Qty: 0 0RF clonazepam 1 mg Tablet 1 mg PO BID PRN PRN (Reason: anxiety) Qty: 14 0RF nystatin [Nyamyc] 100,000 unit/gram Powder 1 applic topical BID Qty: 0 0RF Protocol: *Topical Application Instructions APPLICATION INSTRUCTIONS: to groin fluoxetine 20 mg Capsule 60 mg PO DAILY Qty: 0 0RF buspirone 7.5 mg tablet 15 mg PO TID Qty: 90 2RF (DME) gauze bandage [Bordered Gauze] 4 X 4 bandage See Rx Instructions .ROUTE .MEDSUPPLY Qty: 14 2RF Rx Instructions: Daily cleanse left foot wound with soap and water, dry and apply Betadine solution and apply clean dressing insulin lispro 100 unit/mL insulin pen subcut ACHS Label Comments: INJECT subcuaneously 8-16 units 5 (FIVE) times daily per sliding scale.] carvedilol 12.5 mg Tablet 25 mg PO BID Qty: 0 0RF amlodipine 5 mg Tablet 10 mg PO DAILY Qty: 0 0RF polyethylene glycol 3350 17 gram Powder In Packet 17 g PO DAILY Qty: 0 0RF Rx Instructions: Hold for diarrhea-goal daily stool insulin lispro [Humalog KwikPen Insulin] 100 unit/mL Insulin Pen 10 unit subcut TIDAC Qty: 0 0RF menthol-zinc oxide [Calmoseptine] 0.44-20.6 % Ointment 1 applic topical BID Qty: 0 0RF Protocol: *Topical Application Instructions APPLICATION INSTRUCTIONS: affected areas Aubrey (with collagen) 7-7-1.5 gram Powder In Packet 1 packet PO BIDCM Qty: 0 0RF insulin glargine-yfgn 100 unit/mL (3 mL) Insulin Pen 30 unit subcut BID Qty: 0 0RF nitroglycerin 0.4 mg tablet, sublingual 0.4 mg SL Q5M PRN (Reason: Chest Pain) Qty: 30 0RF clopidogrel 75 mg tablet 75 mg PO DAILY Qty: 90 3RF isosorbide mononitrate 30 mg tablet extended release 24 hr 30 mg PO DAILY Qty: 90 3RF metoclopramide HCl 5 mg tablet 5 mg PO TID Qty: 90 2RF pregabalin [Lyrica] 75 mg capsule 75 mg PO BID Qty: 60 0RF Levemir FlexTouch U-100 Insuln 100 unit/mL (3 mL) insulin pen 44 unit subcut QHS Qty: 15 0RF losartan 50 mg tablet 25 mg PO DAILY Primary Care Provider: Doretha Brown Referrals: Doretha Brown MD [Primary Care Provider] - 1-2 Weeks Disposition Disposition: Home, Self Care
[2022-10-28 14:10] LABS: International Normalized Ratio 1.2; Prothrombin Time (Protime)PT. 14.5 SECONDS (11.7-14.9)
[2022-10-28 14:19] LABS: Anion Gap 3 (5-15); BUN 20 mg/dL (7-18); BUN/Creat Ratio 18.2 RATIO (10-20); Calcium,Total 9.4 mg/dL (8.5-10.1); Chloride 104 mmol/L (98-107); EST Glomerular Filtration Rate 72 mL/min (>60); Est Glom Filt Rate - Afr Amer 87 mL/min (>60); Estimated Creatinine Clearance 70.97 ml/min; Glucose 89 mg/dL (74-106); Potassium 4.9 mmol/L (3.5-5.1); Sodium Level 139 mmol/L (136-145); Troponin-I HS 13 pg/mL (3.0-78.0)
[2022-10-28] MEDS: Acetaminophen 325 MG Tablet 650 MG PO (14:23)
[2022-10-28 14:42] VITALS: BP 111/75; PULSE 65; RESP 17; O2SAT 98
== END 2022-10-28 14:42 | disposition home or self-care (01) ==
PROVIDERS: Emergency Provider Emergency Medicine; PCP Internal Medicine; Visit Provider Emergency Medicine
DX: I10 Essential (primary) hypertension (principal); E11.51 Type 2 diabetes mellitus with diabetic peripheral angiopathy without gangrene; J44.9 Chronic obstructive pulmonary disease, unspecified; E11.42 Type 2 diabetes mellitus with diabetic polyneuropathy; Z79.4 Long term (current) use of insulin; F41.9 Anxiety disorder, unspecified; F32.A Depression, unspecified; H91.90 Unspecified hearing loss, unspecified ear; I25.10 Atherosclerotic heart disease of native coronary artery without angina pectoris
CPT/HCPCS: 71045; 80048; 84484; 85025; 85610; 93005; 99283; A4216

== ENCOUNTER 2022-10-29 11:34 | Outpatient (RCR) | payer MEDICARE, MEDICAID, SELFPAY ==
--- NOTE | 2022-10-29 13:04 | HP.PTEVAL ---
Patient's Visit Information REA HANNA is a 62 year old M referred to Physical Therapy by Dr. Doretha Brown MD with a diagnosis of Debility, Weakness, R53.1. Date of Evaluation: 10/29/22 Physical Therapist: Gabe Tamez - Visit Plan Frequency: 1-2x /Week Duration: 6 Weeks Plan: Continue to work on improving LE strength, endurance, and balance. - Subjective Pt. is a 62 y.o. male who has progressively gotten weaker over the last year. Pt. currently ambulates very short distances with rollator and otherwise uses a wheelchair to get around. Pt. PLOF includes history of three heart attacks and kidney failure in the last four years. He reports at least 10 falls in the last six months. He reports bilateral numbness and tingling in both of his legs. Pt. has difficulty with walking, walking on uneven ground, getting up from a chair, getting into/out of the car, ascending/descending stairs, squatting, and housework. 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 His goal with physical therapy is to be able to walk longer distances. Pt. has had previous home physical therapy. He reports moderate pain in both of his legs. His PMH includes type II diabetes, three heart attacks, stents placed, stage III kidney failure, glacoma blind out of left eye, gout, ulcer left foot, toes amputated from right foot, thyroid surgery, and left ankle surgery. Pt. lives with his in an apartment with no steps to enter. His hobbies include collecting sport cars and watching football. - Objective Sit to stand- mod to max assist. Stand pivot transfer from w/c to table- min assist with rolling walker. Ambulation- pt. too fatigued to ambulate today. Left LE strength hip flexion 4-/5, abduction 4-/5, adduction 4/5, extension 4-/5, knee flexion 4/5, knee extension 4-/5, ankle DF 4/5, ankle PF 4/5. Right LE strength hip flexion 4-/5, abduction 4-/5, adduction 4/5, extension 4-/5, knee flexion 4/5, knee extension 4-/5, ankle DF 4/5, ankle PF 4/5. Sensation- Decreased sensation over bilateral feet. Gait- Pt. was able to complete stand pivot transfer from w/c to table but reported he was too tired to ambulate today. - Balance/Special Test Scores Lower Extremity Functional Score: 0 - Goals Goal 1:: Pt. will report no falls. Goal Time Frame: 4-6 Weeks Goal 2:: Pt. will be able to ambulate at least 150 ft with rolling walker and mod I. Goal Time Frame: 4-6 Weeks Goal 3:: Pt. will be able to complete at least 4 sit to stands in 30 secs with bilateral arm support in order to improve mobility. Goal Time Frame: 4-6 Weeks Goal 4:: Pt. will improve bilateral LE strength to 4/5 for all motions in order to improve stability and balance. Goal Time Frame: 4-6 Weeks - Rehabilitation Potential Physical Therapy Diagnosis: Decreased LE strength, endurance, balance, and pain Rehabilitation Potential: Fair - Anticipated Interventions Patient/Client Instruction: Educate patient on: Condition, Plan of Care, Benefits of Fitness Program For the Purpose of:: To improve ability to perform ADL's, To improve performance and independence with ADL's, To assume or resume ADL's, To improve tolerance to ADL's Therapeutic Exercise to Include: Strength training, Endurance training, Balance training, Gait and locomotor training Comment: Focus on improving LE strength, endurance, and balance. For the Purpose of:: To improve muscle performance and motor function, To improve ability to perform ADL's, To improve performance and independence with ADL's, To improve gait and locomotor functions, To improve endurance, To improve balance, To assume or resume ADL's, To improve tolerance to ADL's Functional Training to Include: ADL Training, Functional home training, Gait training For the Purpose of:: To improve ability to perform ADL's, To improve performance and independence with ADL's, To assume or resume ADL's, To improve tolerance to ADL's Assistive Devices: Cane, Wheeled walker, Wheelchair For the Purpose of:: To decrease pain, To improve ability to perform ADL's, To improve performance and independence with ADL's, To improve gait and locomotor functions, To improve endurance, To improve balance, To improve safety with gait, To improve tolerance to ADL's Thank you for the opportunity to evaluate your patient. For Medicare and Medicare HMO plans, please review the plan of care and approve it. It will need to be FAXED BACK to us at [phone] for Medicare purposes. For Medicare only, by signing this I certify the plan of care. Please let me know if there are questions or concerns regarding this plan of care. Physician Signature: Date:
== END 2022-10-29 19:00 | disposition home or self-care (01) ==
LOC: PT 11:34
PROVIDERS: PCP Internal Medicine; Referring Provider Internal Medicine; Visit Provider Internal Medicine
DX: R53.81 Other malaise (principal); R53.1 Weakness
CPT/HCPCS: 97162

== ENCOUNTER 2022-10-29 13:31 | Outpatient (CLI) | payer MEDICARE, MEDICAID, SELFPAY ==
[2022-10-29 15:56] LABS: Protein, Urine (Random) 15.6 mg/dL (<11.9); Protein:Creat Ratio 177 mg/g CRE (0-200)
== END 2022-10-29 23:59 | disposition home or self-care (01) ==
LOC: LABSPEC 13:33
PROVIDERS: PCP Internal Medicine; Referring Provider Internal Medicine Nephrology; Visit Provider Internal Medicine Nephrology
DX: E11.22 Type 2 diabetes mellitus with diabetic chronic kidney disease (principal); N18.31 Chronic kidney disease, stage 3a
CPT/HCPCS: 82570; 84156

== ENCOUNTER 2022-11-05 09:20 | Outpatient (RCR) | payer MEDICARE, MEDICAID, SELFPAY ==
[2022-10-29 00:27] VITALS: BP 173/40; PULSE 78; RESP 16; TEMP 36.2; BMI 41.1
[2022-11-05 09:33] VITALS: BP 154/55; PULSE 67; RESP 20; TEMP 35.4; BMI 41.1
== END 2022-11-28 23:59 | disposition home or self-care (01) ==
LOC: WC 09:20
PROVIDERS: PCP Internal Medicine; Visit Provider Student in an Organized Health Care Education/Training Program
DX: L97.529 Non-pressure chronic ulcer of other part of left foot with unspecified severity (principal); R60.0 Localized edema; R26.2 Difficulty in walking, not elsewhere classified
CPT/HCPCS: 99213; G0463

== ENCOUNTER → 2022-11-11 | Outpatient (CLI) | payer MEDICARE, MEDICAID, SELFPAY ==
--- NOTE | 2022-11-11 10:51 | ART_ITS ---
Reason For Study: PVD Procedure A bilateral lower extremity continuous wave Doppler with analog waveform analysis,segmental pressures,and ankle brachial indexes without exercise. Unable to exercise patient due to poor balance, difficulty ambulating and shortness of breath. Left Segmental Pressures Left brachial= 175mmHg. Left thigh = >254mmHg. Left calf = >254mmHg. Left posterior tibial artery = >254mmHg. Left dorsalis pedis artery = >254mmHg. Left digit = 62 mmHg. Right Segmental Pressures Right brachial= 173mmHg. Right thigh = >254mmHg. Right calf = >254mmHg. Right posterior tibial artery = >254mmHg. Right dorsalis pedis artery = 165mmHg. unable to acquire TBI due to prior amputations. Indices The right ankle brachial index by the posterior tibial artery is N/C. The right ankle brachial index by the dorsalis pedis is 0.94. The left ankle brachial index by the posterior tibial artery is N/C. The left ankle brachial index by the dorsalis pedis is N/C. The left digital-brachial index is 0.35. VL/Lower Ext Art Exam w/o Exercis Interpretation Summary Triphasic and biphasic Doppler waveforms are noted at ankle level on the right. Monophasic Doppler waveforms are noted at ankle level on the left. Pulse-volume recordings appear satisfactory at all levels bilaterally, though not assessed at digital level on the right due to am putation.The resting right ankle-brachial index is normal. The resting left ankle-brachial index cou ld not be determined due to the non-compressibility of the vasculature. The right digital-brachial i ndex could not be determined due to prior toe amputation. The left digital-brachial index is mode rately to severely diminished. Arterial flow appears normal at ankle level on the right, as the resting right ankle-brachial index is normal. However, arterial calcification can artifactually elevate arterial p ressure readings, underestimating the presence of arterial occlusive disease at right ankle level . In this regard, clinical correlation is advised. Arterial flow at digital level on the right wa s not evaluated due to prior toe amputation. Arterial flow appears [id number] diminishe d at digital level on the left. Ordering Physician: Jason Hess Referring Physician: Doretha Brown Performed By: Yariel Johnson RVT
== END | disposition home or self-care (01) ==
LOC: CVS 10:47
PROVIDERS: PCP Internal Medicine; Visit Provider Podiatrist
DX: I73.9 Peripheral vascular disease, unspecified (principal)
CPT/HCPCS: 93923

== ENCOUNTER → 2022-12-01 | Outpatient (CLI) | payer MEDICARE, MEDICAID, SELFPAY ==
[2022-12-01 16:03] LABS: Absolute Lymphocyte Count 1.49 X10^3/uL (0.83-4.51); Absolute Neutrophil Count 6.7 X10^3/uL (2.0-7.7); Basophil# 0.05 X10^3/uL; Basophil% 0.5 % (0-1); Eosinophil# 0.22 X10^3/uL; Eosinophils% 2.4 % (0-5); Hematocrit 36.1 % (40-54); Hemoglobin 11.3 g/dL (13.0-16.5); Lymphocyte # 1.49 X10^3/ul (0.83-4.51); Lymphocyte % 16.2 % (19-41); Mean Corp Hgb Conc 31.3 g/dL (32-36); Mean Corpuscular Hgb 27.6 pg (27.0-32.0); Mean Corpuscular Volume 88.3 fL (80-94); Mean Platelet Vol. 10.5 fl (6.2-12.0); Monocyte# 0.71 X10^3/uL; Monocyte% 7.7 % (0-10); NRBC Flagged by Analyzer 0 % (0-5); Neutrophil # 6.67 X10^3/uL (2.7-7.7); Neutrophil % 72.8 % (47-70); Platelet Count 246 K/mm3 (150-450); RBC Distribution Width CV 13.7 % (11.6-14.6); RBC Distribution Width SD 44.3 fl (35.1-43.9); Red Blood Count 4.09 M/mm3 (4.6-6.2); White Blood Count 9.2 K/mm3 (4.4-11.0)
[2022-12-01 16:41] LABS: Anion Gap 2 (5-15); BUN 14 mg/dL (7-18); BUN/Creat Ratio 11.8 RATIO (10-20); Calcium,Total 9.1 mg/dL (8.5-10.1); Chloride 102 mmol/L (98-107); Creatinine, Serum 1.19 mg/dL (0.70-1.30); EST Glomerular Filtration Rate 66 mL/min (>60); Est Glom Filt Rate - Afr Amer 79 mL/min (>60); Glucose 162 mg/dL (74-106); Potassium 3.4 mmol/L (3.5-5.1); Sodium Level 142 mmol/L (136-145)
== END | disposition home or self-care (01) ==
LOC: LAB 15:42
PROVIDERS: PCP Internal Medicine; Visit Provider Physician Assistant
DX: E11.9 Type 2 diabetes mellitus without complications (principal); I49.9 Cardiac arrhythmia, unspecified
CPT/HCPCS: 36415; 80048; 85025

== ENCOUNTER 2022-12-17 03:46 | Emergency (ER) | payer MEDICARE, MEDICAID, SELFPAY ==
[2022-12-17 03:47] VITALS: BP 187/84; PULSE 75; RESP 20; TEMP 37.6; O2SAT 95; BMI 40.4
--- NOTE | 2022-12-17 04:13 | RAD_ITS ---
EXAM: XR LEFT FOOT COMPLETE, 3 OR MORE VIEWS CLINICAL INDICATION: ? Osteomyelitis TECHNIQUE: Frontal, lateral and oblique views of the left foot. This report was created using [employer] report NetMinder technology. COMPARISON: None. FINDINGS: BONES/JOINTS: Small area of indistinctness of the cortex of the posterior calcaneal tuberosity may be due to erosion. Cancellous screws in the medial malleolus. No acute fracture. No subluxation. Normal alignment. Preservation of the joint space. SOFT TISSUES: Unremarkable. No soft tissue swelling or gas. No radiopaque foreign body. VASCULATURE: Extensive vascular calcifications. RAD/Foot min 3 Views IMPRESSION: 1. Small focal area of indistinctness to the cortex of the posterior calcaneal tuberosity may be due to osteomyelitis. Consider MR for further evaluation. 2. Extensive vascular calcifications. Electronically Signed: Wallace Matias MD at 4:52 EST ,
--- NOTE | 2022-12-17 04:13 | RAD_ITS ---
EXAM: XR CHEST, 1 VIEW CLINICAL INDICATION: dyspnea TECHNIQUE: Frontal view of the chest. This report was created using [employer] report generation technology. COMPARISON: 10/28/2022. FINDINGS: LUNGS AND PLEURAL SPACES: Low lung volumes limit the exam. No consolidations. No pneumothorax. No effusion. HEART: Unremarkable. Cardiac silhouette not enlarged. MEDIASTINUM: Central airways and mediastinal contour are unremarkable. BONES/JOINTS: Unremarkable. SOFT TISSUES: Unremarkable. UPPER ABDOMEN: Elevation of the right hemidiaphragm unchanged. RAD/Chest 1 View (Portable) IMPRESSION: 1. Low lung volumes limit the exam. No consolidations. 2. No acute cardiopulmonary abnormality. Electronically Signed: Wallace Matias MD at 4:50 EST ,
[2022-12-17] MEDS: Acetaminophen 500 MG Tablet 1000 MG PO (04:21)
[2022-12-17 04:27] LABS: Absolute Lymphocyte Count 1.15 X10^3/uL (0.83-4.51); Absolute Neutrophil Count 13.1 X10^3/uL (2.0-7.7); Basophil# 0.03 X10^3/uL; Basophil% 0.2 % (0-1); Eosinophil# 0.09 X10^3/uL; Eosinophils% 0.6 % (0-5); Hematocrit 38.2 % (40-54); Hemoglobin 11.8 g/dL (13.0-16.5); Lymphocyte # 1.15 X10^3/ul (0.83-4.51); Lymphocyte % 7.5 % (19-41); Mean Corp Hgb Conc 30.9 g/dL (32-36); Mean Corpuscular Hgb 27.2 pg (27.0-32.0); Mean Platelet Vol. 10.9 fl (6.2-12.0); Monocyte# 0.87 X10^3/uL; Monocyte% 5.7 % (0-10); NRBC Flagged by Analyzer 0 % (0-5); Neutrophil # 13.14 X10^3/uL (2.7-7.7); Neutrophil % 85.6 % (47-70); Platelet Count 245 K/mm3 (150-450); RBC Distribution Width CV 13.5 % (11.6-14.6); RBC Distribution Width SD 43.8 fl (35.1-43.9); Red Blood Count 4.34 M/mm3 (4.6-6.2); White Blood Count 15.3 K/mm3 (4.4-11.0)
[2022-12-17 04:34] LABS: Erythrocyte Sedimentation Rate 30 mm/hr (0-20)
[2022-12-17 04:41] LABS: Anion Gap 4 (5-15); BUN 18 mg/dL (7-18); BUN/Creat Ratio 14.4 RATIO (10-20); Calcium,Total 8.9 mg/dL (8.5-10.1); Chloride 103 mmol/L (98-107); Creatinine, Serum 1.25 mg/dL (0.70-1.30); EST Glomerular Filtration Rate 62 mL/min (>60); Est Glom Filt Rate - Afr Amer 75 mL/min (>60); Estimated Creatinine Clearance 62.46 ml/min; Glucose 149 mg/dL (74-106); Potassium 3.9 mmol/L (3.5-5.1); Sodium Level 142 mmol/L (136-145)
[2022-12-17 04:46] LABS: Lactic Acid 1.4 mmol/L (0.4-1.9)
[2022-12-17 05:24] VITALS: BP 127/90; PULSE 74; RESP 20; TEMP 37.8; O2SAT 96
--- NOTE | 2022-12-17 05:43 | MRI_ITS ---
STUDY: MRI LEFT ANKLE WITHOUT CONTRAST REASON FOR EXAM: Male, 62 years old. ? Osteomyelitis left heel TECHNIQUE: Standardized fat and water weighted pulse sequences were obtained in all 3 orthogonal planes. COMPARISON: MRI of the left ankle dated July 02, 2022. X-ray of the left foot dated December 17, 2022 FINDINGS: Reidentification of moderate subcutaneous edema in the posterior aspect of the ankle and predominantly on the lateral side. A small superficial plantar/heel ulcer is present in the most posterior aspect of the ankle measuring 2.29 cm in diameter and associated with a small amount of subcutaneous air in the ulcerative defect and with diffuse edema in the surrounding tissues but no encapsulated fluid pocket/abscess. Inflammatory/infectious phlegmon is present in the plantar subcutaneous tissues of the ankle due to cellulitis. There is no bone marrow edema or cortical erosion or evidence of active osteomyelitis on the current exam. Redemonstration of moderate thickening of the plantar fascia medial band and central cord and a small plantar calcaneal spur. Redemonstration of diffuse fatty atrophy and edema throughout the foot muscles compatible with sequela of chronic peripheral neuropathy. A small ankle joint effusion is present. No bone marrow edema or fracture or osteochondral defect is seen. Redemonstration of 2 threaded screws from the medial malleolus into the distal tibial metadiaphyseal regions. Normal posterior tibialis tendon. Normal flexor digitorum longus tendon. Normal flexor hallucis longus tendon. Normal peroneus longus and brevis tendons. Normal tibialis anterior tendon. Normal extensor hallucis longus tendon. Normal extensor digitorum longus tendons. Normal Achilles tendon and teno-osseous insertion. There is chronic thickening of the anterior talofibular ligament, consistent with scarring. Normal calcaneofibular and posterior talofibular ligaments. Normal subtalar ligaments and sinus tarsi. Normal deltoid ligamentous complexes. Normal tibiotalar articulation. Normal talar dome. Normal subtalar articulations. Normal talonavicular articulation. Normal calcaneocuboid articulation. Mild cortical spurring is present throughout the mid foot and several of the articulations. MRI/Lower Ext/No Jt/w/o IMPRESSION: 1. Reidentification of moderate subcutaneous edema in the posterior aspect of the ankle and predominantly on the lateral side. 2. A small superficial plantar/heel ulcer is present in the most posterior aspect of the ankle measuring 2.29 cm in diameter and associated with a small amount of subcutaneous air in the ulcerative defect and with diffuse edema in the surrounding tissues but no encapsulated fluid pocket/abscess. Inflammatory/infectious phlegmon is present in the plantar subcutaneous tissues of the ankle due to cellulitis. 3. There is no bone marrow edema or cortical erosion or evidence of active osteomyelitis on the current exam. Electronically Signed: Timothy Langston MD at 10:08 EST ,
[2022-12-17] MEDS: Ibuprofen 600 MG Tablet PO (05:53)
[2022-12-17 06:41] VITALS: BP 120/100; BP 127/90; PULSE 75; RESP 16; RESP 18; TEMP 37.7; O2SAT 97; O2SAT 98
[2022-12-17 07:21] VITALS: BP 140/98; PULSE 68; RESP 19; TEMP 36.7; O2SAT 97
--- NOTE | 2022-12-17 07:39 | EDS_ITS ---
HPI History of Present Illness Chief Complaint: Shortness of Breath Narrative Narrative: Patient is a 62-year-old male with past medical history of type 2 diabetes peripheral vascular disease diabetic ulcers and COPD currently on 4 L by nasal cannula oxygen 21/06. Patient states that he went and saw his vascular surgeon today and was told that he most likely will have to lose his foot. He states he has been nervous/anxious ever since hearing this. He states he was able to fall asleep but awoke feeling unwell with fevers and chills and shortness of breath. He states the person across his mind was the statement earlier today that he would lose his foot and with these new symptoms he called EMS to bring him in for evaluation. He denies any known sick contacts he denies any chest pain or diaphoresis associated with this. He denies any nausea vomiting diarrhea or dysuria [facility] Medical History Ambulates with cane Amputation of one or more toes Anxiety and depression Arrhythmia Arthritis Aspiration into airway Aspiration pneumonia Atherosclerotic heart disease of [place] coronary artery without angina pectoris Bilateral leg weakness Blind left eye Blister (nonthermal), left foot, initial encounter Bronchiectasis with (acute) exacerbation Cardiology follow-up encounter Chronic cough Chronic respiratory failure with hypoxia COPD (chronic obstructive pulmonary disease) CPAP (continuous positive airway pressure) dependence Debility, unspecified Depression Diabetes Essential hypertension Gastric reflux GERD (gastroesophageal reflux disease) High cholesterol History of aspiration pneumonia History of diabetes mellitus History of echocardiogram History of edema History of gout History of heart attack History of non-ST elevation myocardial infarction (NSTEMI) (08/2016) History of pain when walking History of steroid therapy History of stress test Hyperglycemia due to type 2 diabetes mellitus Hypertension Insulin dependent diabetes mellitus Kidney stones Kidney stones Leg pain, right Leukocytosis Low back pain Memory impairment Migraines Mood disorder Myocardial infarct Non-smoker Noncompliance by declining intervention or support On home oxygen therapy Peripheral vascular occlusive disease Pneumonia Prostate disease Pulmonary nodule, left Recurrent falls Right ankle pain Right foot pain Shortness of breath on exertion Silent aspiration Sleep apnea Tremor Type 2 diabetes mellitus Type 2 diabetes mellitus with diabetic polyneuropathy Ulcer of left foot, limited to breakdown of skin 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 Wears glasses Wound of left lower extremity Home Medications acetaminophen 500 mg tablet 1,000 mg PO QHS PRN PRN Pain 1-10 Or Fever 03/16/21 [History Last Taken 05/14/22 18:50 1000] aspirin 81 mg tablet,delayed release (Adult Aspirin Regimen) 81 mg PO DAILY heart health 11/05/21 [History Last Taken 08/29/22 08:00] spironolactone 25 mg tablet 25 mg PO QHS diuretic 11/08/21 [History Last Taken 08/29/22 22:00] peg [id number] 1 %-0.2 %-0.2 % eye drops (Artificial Tears ([id number])) 2 drp EACH EYE Q1H PRN DRY EYES #0 mL 11/14/21 [Rx Last Taken Unknown] nitroglycerin 0.4 mg sublingual tablet 0.4 mg sublingual Q5M PRN Chest Pain #30 tabs 11/25/21 [Rx Last Taken Unknown] atorvastatin 80 mg tablet 80 mg PO QHS cholesterol #90 tabs 01/09/22 [Rx Last Taken 08/29/22 22:00] finasteride 5 mg tablet 5 mg PO DAILY prostate #90 tabs 01/09/22 [Rx Last Taken 08/29/22 22:00] furosemide 40 mg tablet 40 mg PO DAILY fluid #90 tabs 01/09/22 [Rx Last Taken 08/29/22 08:00] albuterol sulfate 90 mcg/actuation aerosol inhaler 2 puff inhalation Q4H PRN shortness of breath or wheezing #8.5 grams 02/04/22 [Rx Last Taken Unknown] clopidogrel 75 mg tablet 75 mg PO DAILY blood thinner #90 tabs 03/30/22 [Rx Last Taken 08/29/22 08:00] isosorbide mononitrate 30 mg tablet,extended release 24 hr 30 mg PO DAILY heart #90 tabs 03/30/22 [Rx Last Taken 07/01/22] loratadine 10 mg tablet (Allergy Relief (loratadine)) 10 mg PO DAILY allergies 05/21/22 [History Last Taken 08/29/22 08:00] buspirone 7.5 mg tablet 15 mg PO TID mood #90 tabs 07/03/22 [Rx Last Taken 08/29/22 22:00] clonazepam 1 mg tablet 1 mg PO BID PRN PRN anxiety #14 tabs 07/03/22 [Rx Last Taken Unknown] fluoxetine 20 mg capsule 60 mg PO DAILY #0 caps 07/03/22 [Rx Last Taken 08/29/22 22:00] gauze bandage 4 X 4 (Bordered Gauze) #14 ea 07/03/22 [Rx Last Taken Unknown] nystatin 100,000 unit/gram topical powder (Nyamyc) 1 applic topical BID #0 grams 07/03/22 [Rx Last Taken Unknown] walker (Ultra-Light Rollator misc) #1 ea 07/21/22 [Rx Last Taken Unknown] insulin lispro 100 unit/mL subcutaneous pen sliding scale dose subcut ACHS Check with primary doctor 08/12/22 [History Last Taken Unknown] amlodipine 5 mg tablet 10 mg PO DAILY #0 tabs 08/14/22 [Rx Last Taken 08/29/22 08:00] carvedilol 12.5 mg tablet 25 mg PO BID #0 tabs 08/14/22 [Rx Last Taken 08/29/22 22:00] insulin lispro 100 unit/mL subcutaneous pen (Humalog KwikPen (U-100) Insulin) 10 unit (0.1 mL) subcut TIDAC #0 mL 09/01/22 [Rx Last Taken Unknown] menthol 0.44 %-zinc oxide 20.6 % topical ointment (Calmoseptine) 1 applic topical BID #0 grams 09/01/22 [Rx Last Taken Unknown] losartan 50 mg tablet 25 mg PO DAILY bp 10/27/22 [History Last Taken Unknown] pregabalin 75 mg capsule (Lyrica) 75 mg PO BID #60 caps 11/19/22 [Rx Last Taken Unknown] metoclopramide HCl 5 mg tablet 5 mg PO TID #90 tabs 12/01/22 [Rx Last Taken Unknown] hydroxyzine HCl 10 mg tablet 10 mg PO QHS 12/02/22 [History Last Taken Unknown] insulin detemir U-100 100 unit/mL (3 mL) subcutaneous pen (Levemir FlexTouch U- 100 Insulin) 44 unit (0.44 mL) subcut QHS 3 months #39.6 mL 12/02/22 [Rx Last Taken Unknown] melatonin 3 mg tablet 3 mg PO QHS 12/02/22 [History Last Taken Unknown] pantoprazole 40 mg tablet,delayed release 40 mg PO DAILY gerd #90 tabs 12/02/22 [Rx Last Taken Unknown] pen needle, diabetic 33 gauge x 16 #200 ea 12/02/22 [Rx Last Taken Unknown] Allergy/AdvReac Type Severity Reaction Status Date / Time allopurinol AdvReac Vomiting Verified 12/17/22 03:56 Influenza Virus Vaccines AdvReac Vomiting Verified 12/17/22 03:56 pneumococcal vaccine AdvReac Vomiting Verified 12/17/22 03:56 Family History Mother Diabetes Heart disease CHF Father Heart disease [place]/CAD Myocardial infarction Surgical History H/O lithotripsy History of angioplasty of peripheral vessel (2016) History of angioplasty of peripheral vessel History of ankle surgery History of cardiac catheterization History of coronary artery stent placement (08/2016) History of coronary artery stent placement History of esophagogastroduodenoscopy (EGD) History of left heart catheterization (11/15/17) History of thyroid surgery Hx of lithotripsy Hx of surgery to heart and great vessels, presenting hazards to health Hx of surgical procedure Hx of thyroidectomy Hx of toe surgery Hx of toe surgery PEG (percutaneous endoscopic gastrostomy) status Social History household members: spouse housing: apartment Smoking Status: Never smoker alcohol intake: never substance use type: does not use ROS ROS ED Constitutional Constitutional ED: Reports chills and fever(s) ENT ENT ED: Denies sore throat Cardiovascular Cardiovascular: Denies chest pain Respiratory/Chest Respiratory/Chest: Reports dyspnea; Denies cough Gastrointestinal Gastrointestinal: Denies abdominal pain, diarrhea, nausea or vomiting Genitourinary Genitourinary ED: Denies dysuria Musculoskeletal Musculoskeletal: Denies myalgias Integumentary Reports other Details: Positive left foot wound ; Denies rash Neurologic Neurologic: Reports paresthesias and weakness; Denies headache(s) Psychiatric Psychiatric: Reports anxiety Hematologic/Lymphatic Hematologic/Lymphatic: Denies easy bleeding or easy bruising EXAM Physical Exam Const Vital Signs: 12/17/22 03:47 12/17/22 03:55 12/17/22 05:24 Temperature 99.7 F H 100.0 F H Temperature Source Temporal Oral Pulse Rate 75 74 Respiratory Rate 20 H 20 H Respiratory Effort Normal Blood Pressure 187/84 H 127/90 H Blood Pressure Mean 118 102 Pulse Ox 95 96 Oxygen Delivery Method Nasal Cannula Nasal Cannula Oxygen Flow Rate (L/min) 4 4 12/17/22 06:41 12/17/22 06:41 12/17/22 07:21 Temperature 99.8 F H 98.1 F Temperature Source Temporal Oral Pulse Rate 75 75 68 Respiratory Rate 16 18 19 H Respiratory Effort Blood Pressure 120/100 H 127/90 H 140/98 H Blood Pressure Mean 106 102 112 Pulse Ox 97 98 97 Oxygen Delivery Method Room Air Oxygen Flow Rate (L/min) Positive well nourished, well developed and obese General Appearance ED: well developed Nutritional Appearance: obese HEENT Reports dry mucous membranes HEENT Narrative: No tongue or lip swelling no oral lesions no airway edema or compromise. No changes to the posterior pharynx to suggest secondary infection Mouth ED: Yes dry mucous membranes Mouth: dry mucous membranes Eyes PERRL and EOMs intact bilaterally General Eye ED: Negative for scleral icterus Neck supple and no JVD Neck Narrative: No nuchal rigidity or meningeal signs present Resp normal respiratory effort Resp Narrative: Breath sounds are diminished throughout with faint wheezes in the bilateral bases but otherwise no nasal flaring retractions tachypnea or accessory muscle use Cardio regular rate and regular rhythm Rate: other Other Details: Radial pulses are plus 2 out of 4 bilaterally are equal and symmetric GI normal to inspection, nondistended, normoactive bowel sounds, non-tender, non- distended and no masses GI Narrative: No voluntary guarding or rigidity no pulsatile mass or fluid wave Auscultation: normoactive bowel sounds Palpation: soft Back/Spine Back/Spine Narrative: Patient has a 2 x 2 area of erythema and induration along the left upper back consistent with infected cyst or abscess without active drainage or lymphangitic streaking Extremity Extremity Narrative: Right lower extremity is missing all 5 digits secondary to previous amputation. The left lower extremity has a 1.5 cm circular dermal layer deep ulceration to the heel surface with granulation tissue present and faint surrounding erythema but no warmth or crepitance or lymphangitic streaking noted. Pulses are s everely diminished bilaterally consistent with his history of peripheral vascular disease. Capillary refill is at 3 seconds Neuro oriented x3 and CN's II-XII intact bilaterally Sensorium / Orientation: alert Psych Psych Narrative: Patient has a nervous/anxious affect Skin Skin Narrative: Soft tissue changes to the left foot as documented above General Skin Exam: Negative for jaundice MDM MDM MDM Narrative Medical decision making narrative: Patient presented to the ER satting in the high 90s on his normal 4 L of nasal cannula oxygen. He had a nervous/anxious affect and was highly concerned about his recent office encounter where he was informed he may need a foot amputation. He is febrile upon arrival and I feel that the sensation of him describing shortness of breath is more likely related to his overall unwell feeling as he has had his fevers and chills. As he does not have chest pain or diaphoresis did not feel there is a need for EKG or cardiovascular work-up. I do have concern over systemic infection such as possible pneumonia or osteomyelitis from the diabetic ulcer. Secondary to his basic blood work was obtained. Patient's white count is elevated at 15.3 and his CRP is also elevated at 12.4 but lactic acid is normal. The patient's chest x-ray did not reveal any obvious pneumonia but x-ray of the foot has changes concerning for osteomyelitis. As the patient is at high risk for developing this type of infection I consulted podiatry Dr. Donnelly. He recommends at this time patient get an MRI of his foot to further delineate if this is the cause of his symptoms. While waiting for this he will be given vancomycin and Zosyn to cover for infectious process. The patient does not have changes consistent with DKA or HHS as well. At this time patient is pending his MRI and therefore be signed out to day physician Dr. Banks pending those results. I do feel that based on the patient's complex medical history that if MRI does not reveal a osteomyelitis changes that patient may need admitted still for further observation based on his fever and multiple medical comorbidities Lab Data Attestation: I reviewed the patient's lab results. Labs: Laboratory Results - last 24 hr 12/17/22 12/17/22 12/17/22 04:11 04:11 04:11 WBC 15.3 H RBC 4.34 L Hgb 11.8 L Hct 38.2 L MCV 88.0 MCH 27.2 MCHC 30.9 L RDW Std Deviation 43.8 RDW Coeff of James 13.5 Plt Count 245 MPV 10.9 Immature Gran % (Auto) 0.400 Neut % (Auto) 85.6 H Lymph % (Auto) 7.5 L [place] % (Auto) 5.7 Eos % (Auto) 0.6 Baso % (Auto) 0.2 Absolute Neuts (auto) 13.1 H Absolute Lymphs (auto) 1.15 Nucleated RBC % 0 ESR 30 H Sodium 142 Potassium 3.9 Chloride 103 Carbon Dioxide 35.0 H Anion Gap 4 L BUN 18 Creatinine 1.25 Estim Creat Clear Calc 62.46 Est GFR (MDRD) Af Amer 75 Est GFR (MDRD) Non-Af 62 BUN/Creatinine Ratio 14.4 Glucose 149 H Lactic Acid 1.4 Calcium 8.9 C-React Prot Ext Range 12.40 H Radiography Diagnostic Testing: Clinical Impression(s) from Imaging Studies Chest X-Ray 12/17/22 04:13 IMPRESSION: 1. Low lung volumes limit the exam. No consolidations. 2. No acute cardiopulmonary abnormality. Electronically Signed: Wallace Matias MD at 4:50 EST , Foot X-Ray 12/17/22 04:13 IMPRESSION: 1. Small focal area of indistinctness to the cortex of the posterior calcaneal tuberosity may be due to osteomyelitis. Consider MR for further evaluation. 2. Extensive vascular calcifications. Electronically Signed: Wallace Matias MD at 4:52 EST , Discharge Plan Triage Chief Complaint: Shortness of Breath ED Provider: Dejuan Cole Dx/Rx/DC Orders Clinical Impression: Pyrexia, Leukocytosis, Diabetic ulcer of left foot, History of COPD Prescriptions: No Action aspirin [Adult Aspirin Regimen] 81 mg tablet,delayed release (DR/EC) 81 mg PO DAILY atorvastatin 80 mg tablet 80 mg PO QHS Qty: 90 2RF furosemide 40 mg tablet 40 mg PO DAILY Qty: 90 3RF finasteride 5 mg tablet 5 mg PO DAILY Qty: 90 3RF albuterol sulfate 90 mcg/actuation HFA aerosol inhaler 2 puff inhalation Q4H PRN (Reason: shortness of breath or wheezing) Qty: 8.5 3RF Rx Instructions: administer with spacer loratadine [Allergy Relief (loratadine)] 10 mg tablet 10 mg PO DAILY (DME) Ultra-Light Rollator Misc See Rx Instructions .Route Qty: 1 2RF Rx Instructions: As directed melatonin 3 mg tablet 3 mg PO QHS Label Comments: TAKE 1 TABLET BY MOUTH ONCE DAILY AT BEDTIME hydroxyzine HCl 10 mg tablet 10 mg PO QHS Label Comments: TAKE 1 TABLET BY MOUTH THREE TIMES DAILY NEEDED Levemir FlexTouch U-100 Insuln 100 unit/mL (3 mL) insulin pen 44 unit subcut QHS 90 Days Qty: 39.6 3RF (DME) pen needle, diabetic 33 gauge x 5/16 needle See Rx Instructions .Route Qty: 200 3RF Rx Instructions: As directed pantoprazole 40 mg tablet,delayed release (DR/EC) 40 mg PO DAILY Qty: 90 3RF acetaminophen 500 MG tablet 1,000 mg PO QHS PRN PRN (Reason: Pain 1-10 Or Fever) spironolactone 25 mg tablet 25 mg PO QHS Artificial Tears([id number]) 1-0.2-0.2 % Drops 2 drp EACH EYE Q1H PRN (Reason: DRY EYES) Qty: 0 0RF clonazepam 1 mg Tablet 1 mg PO BID PRN PRN (Reason: anxiety) Qty: 14 0RF nystatin [Nyamyc] 100,000 unit/gram Powder 1 applic topical BID Qty: 0 0RF Protocol: *Topical Application Instructions APPLICATION INSTRUCTIONS: to groin fluoxetine 20 mg Capsule 60 mg PO DAILY Qty: 0 0RF buspirone 7.5 mg tablet 15 mg PO TID Qty: 90 2RF (DME) gauze bandage [Bordered Gauze] 4 X 4 bandage See Rx Instructions .ROUTE .MEDSUPPLY Qty: 14 2RF Rx Instructions: Daily cleanse left foot wound with soap and water, dry and apply Betadine solution and apply clean dressing insulin lispro 100 unit/mL insulin pen subcut ACHS Label Comments: INJECT subcuaneously 8-16 units 5 (FIVE) times daily per sliding scale.] carvedilol 12.5 mg Tablet 25 mg PO BID Qty: 0 0RF amlodipine 5 mg Tablet 10 mg PO DAILY Qty: 0 0RF insulin lispro [Humalog KwikPen Insulin] 100 unit/mL Insulin Pen 10 unit subcut TIDAC Qty: 0 0RF menthol-zinc oxide [Calmoseptine] 0.44-20.6 % Ointment 1 applic topical BID Qty: 0 0RF Protocol: *Topical Application Instructions APPLICATION INSTRUCTIONS: affected areas nitroglycerin 0.4 mg tablet, sublingual 0.4 mg SL Q5M PRN (Reason: Chest Pain) Qty: 30 0RF clopidogrel 75 mg tablet 75 mg PO DAILY Qty: 90 3RF isosorbide mononitrate 30 mg tablet extended release 24 hr 30 mg PO DAILY Qty: 90 3RF losartan 50 mg tablet 25 mg PO DAILY pregabalin [Lyrica] 75 mg capsule 75 mg PO BID Qty: 60 0RF metoclopramide HCl 5 mg tablet 5 mg PO TID Qty: 90 2RF Primary Care Provider: Doretha Brown Referrals: Doretha Brown MD [Primary Care Provider] -
[2022-12-17 10:46] LABS: Bacteria 0 SEEN /hpf (None Seen); Mucous, Urine 0 SEEN /hpf (<or=2+); Red Blood Cells-Urine 0 SEEN /hpf (0-5)
[2022-12-17 10:49] LABS: Color, Urine Yellow (Yellow); Glucose, Dipstick Normal (Normal); Ketone-Dipstick Negative (Negative); Leukocyte Esterase-Dipstick Negative /ul (Negative); Nitrite-Dipstick Negative (Negative); Occult Blood-Urine Negative /ul (Negative); Protein-Dipstick 100 mg/dl (Negative); Urine Bilirubin Dipstick Negative (Negative); Urine Clarity Clear (Clear); Urine Urobilinogen Normal (Normal)
[2022-12-17 11:18] LABS: Squamous Epithelial Cells - UA 5-10 SEEN /hpf (0-5); White Blood Cells 0-5 SEEN /hpf (0-5)
[2022-12-17 11:19] LABS: Hyaline Cast 0-5 SEEN /lpf (0-5)
[2022-12-17 11:39] LABS: Waxy Cast-Urine 0-5 SEEN /lpf (None Seen)
[2022-12-17] MEDS: Doxycycline 100 MG CAPSULE PO (11:45)
[2022-12-17 12:06] VITALS: BP 168/53; PULSE 68; RESP 17; TEMP 36.5; O2SAT 95
== END 2022-12-17 12:09 | disposition home or self-care (01) ==
PROVIDERS: Emergency Provider Emergency Medicine; PCP Internal Medicine; Visit Provider Emergency Medicine
DX: R50.9 Fever, unspecified (principal); E11.621 Type 2 diabetes mellitus with foot ulcer; L97.529 Non-pressure chronic ulcer of other part of left foot with unspecified severity; J44.9 Chronic obstructive pulmonary disease, unspecified; E11.42 Type 2 diabetes mellitus with diabetic polyneuropathy; Z79.4 Long term (current) use of insulin; D72.829 Elevated white blood cell count, unspecified; I25.10 Atherosclerotic heart disease of native coronary artery without angina pectoris; E78.00 Pure hypercholesterolemia, unspecified; I10 Essential (primary) hypertension; I25.2 Old myocardial infarction; F41.9 Anxiety disorder, unspecified; F32.A Depression, unspecified; E66.9 Obesity, unspecified; K21.9 Gastro-esophageal reflux disease without esophagitis; Z99.81 Dependence on supplemental oxygen; Z79.82 Long term (current) use of aspirin; Z79.899 Other long term (current) drug therapy; Z79.01 Long term (current) use of anticoagulants
CPT/HCPCS: 71045; 73630; 73718; 80048; 81001; 83605; 85025; 85652; 86140; 87040; 87428; 96365; 96366; 96367; 99285; J7040; J7050; A4216

== ENCOUNTER → 2022-12-22 | Outpatient (CLI) | payer MEDICARE, MEDICAID, SELFPAY ==
--- NOTE | 2022-12-22 12:32 | VDLE_ITS ---
Reason For Study: swelling RIGHT LEFT GSV is normal. GSV is normal. CFV is compressible, spontaneous, phasic, CFV is compressible, spontaneous, phasic, competent and demonstrates normal competent, and demonstrates normal augmentation. augmentation. FV is compressible, spontaneous, phasic, FV is compressible, spontaneous, phasic, competent and demonstrates normal competent and demonstrates normal augmentation. augmentation. POP V is compressible, spontaneous, phasic, POP V is compressible, spontaneous, phasic, competent and demonstrates normal competent and demonstrates normal augmentation. augmentation. T/P Trunk is compressible. T/P Trunk is compressible. PTV is compressible. PTV is compressible. RT PerV is compressible. LT PerV is compressible. Procedure This is a venous duplex using B-mode, color flow and spectral Doppler. Exam performed in department. The exam was diagnostic. Difficult study due to pt body habitus. A preliminary report was called and/or faxed to Dr. Hess. VL/Venous Duplex US - Alfa Extrem Interpretation Summary Deep veins of the lower extremities are bilaterally patent and compressible seg mentally. There is no evidence of deep vein thrombosis on either side. Valvular competence appears in tact within the proximal deep venous systems bilaterally. The great saphenous veins appear bila terally patent and compressible segmentally. Ordering Physician: Jason Hess Performed By: Tio Drake, RVT
== END | disposition home or self-care (01) ==
PROVIDERS: PCP Internal Medicine; Visit Provider Podiatrist
DX: R22.43 Localized swelling, mass and lump, lower limb, bilateral (principal)
CPT/HCPCS: 87070; 87077; 87186; 87205; 93970

== ENCOUNTER 2022-12-30 06:47 | Day surgery (SDC) | payer MEDICARE, MEDICAID, SELFPAY ==
[2022-12-29 10:50] VITALS: BMI 35.9
[2022-12-30 07:02] LABS: Hematocrit 40.6 % (40-54); Hemoglobin 12.5 g/dL (13.0-16.5); Mean Corp Hgb Conc 30.8 g/dL (32-36); Mean Corpuscular Hgb 26.9 pg (27.0-32.0); Mean Corpuscular Volume 87.5 fL (80-94); Mean Platelet Vol. 10.6 fl (6.2-12.0); Platelet Count 227 K/mm3 (150-450); RBC Distribution Width CV 13.4 % (11.6-14.6); RBC Distribution Width SD 43.2 fl (35.1-43.9); Red Blood Count 4.64 M/mm3 (4.6-6.2); White Blood Count 9.5 K/mm3 (4.4-11.0)
[2022-12-30 07:22] LABS: Anion Gap 9 (5-15); BUN 19 mg/dL (7-18); BUN/Creat Ratio 13.2 RATIO (10-20); Calcium,Total 9.2 mg/dL (8.5-10.1); Chloride 99 mmol/L (98-107); Creatinine, Serum 1.44 mg/dL (0.70-1.30); EST Glomerular Filtration Rate 53 mL/min (>60); Est Glom Filt Rate - Afr Amer 64 mL/min (>60); Estimated Creatinine Clearance 54.21 ml/min; Glucose 222 mg/dL (74-106); Potassium 3.3 mmol/L (3.5-5.1); Sodium Level 140 mmol/L (136-145)
--- NOTE | 2022-12-30 08:38 | OP.PCM_ITS ---
Problems Associated Problem List Diagnoses (1) Atherosclerosis of southern [place] artery of extremity with ulceration: Report of Operation Date of Procedure: 01/27/23 Pre-Operative Diagnosis: PAD with nonhealing ulcer Post-Operative Diagnosis: The same Surgery/Procedure Performed:: 1. Ultrasound-guided access retrograde right common femoral artery. 2. Left lower extremity angiogram with catheter placed into the third order popliteal artery. 3. Closure with Mynx Surgeon: Jerzy Julian Type of Anesthesia: IV Sedation Description of Procedure: Patient brought to the [facility]. Underwent appropriate timeout consent. Underwent sedation. Prepped and draped in a sterile fashion. We did ultrasound-guided access retrograde right common femoral artery. Put a Glidewire up in a 5 Arabic sheath. Gave 5000 units of heparin. We got up and over the bifurcation. Imaged from the left iliac. Showed extensive calcifications throughout but the common femoral, profunda and femoral were widely patent. No significant stenosis. We then imaged further down the leg and the rest of the femoral through the popliteal into the proximal tibials was patent. We put the wire and then catheter in the distal popliteal and imaged from there. Showed all 3 tibials were patent into the foot. The plantars and dorsalis pedis were diminutive but no really significant stenosis through the main vessels. More of a collateral coming off the anterior tib into the foot that was patent. These were all smaller than 2 mm vessels so no angioplasty needed. He does have known significant small vessel disease which may limit his healing but has adequate perfusion into the foot. We then imaged the right groin. We deployed a minx with good hemostasis. He was brought to recovery stable condition. Sedation: This 62-year-old gentleman underwent moderate sedation given by Dr. Jerzy Julian. He was monitored EKG blood pressure and pulse ox for over the 30 minutes of the procedure. See the EMR for the complete record.
== END 2022-12-30 13:10 | disposition home or self-care (01) ==
LOC: CLSP 06:50
PROVIDERS: PCP Internal Medicine; Referring Provider Surgery Vascular Surgery; Visit Provider Surgery Vascular Surgery
DX: I73.9 Peripheral vascular disease, unspecified (principal); J44.1 Chronic obstructive pulmonary disease with (acute) exacerbation; I10 Essential (primary) hypertension; E07.9 Disorder of thyroid, unspecified; R73.09 Other abnormal glucose; E78.00 Pure hypercholesterolemia, unspecified; I82.90 Acute embolism and thrombosis of unspecified vein; Z87.891 Personal history of nicotine dependence
CPT/HCPCS: 36245; 36415; 75710; 76937; 80048; 85027; 99152; 99153; C1760; J7040; Q9967; C1769; C1887

== ENCOUNTER 2023-01-11 19:35 | Emergency (ER) | payer MEDICARE, MEDICAID, SELFPAY ==
[2023-01-11 19:35] VITALS: BP 149/75; PULSE 58; RESP 19; TEMP 37; O2SAT 97; O2SAT 99; BMI 38.0
[2023-01-11] MEDS: Acetaminophen 500 MG Tablet 1000 MG PO (22:09)
--- NOTE | 2023-01-11 22:30 | RAD_ITS ---
EXAM: XR LEFT ELBOW COMPLETE, 3 OR MORE VIEWS CLINICAL INDICATION: trauma TECHNIQUE: Frontal, lateral and oblique views of the left elbow. This report was created using [employer] report generation technology. COMPARISON: None. FINDINGS: BONES/JOINTS: Joint spaces are maintained. No destructive or sclerotic lesions. No acute or healing fracture or malalignment. No significant elbow joint effusion. SOFT TISSUES: Unremarkable. No soft tissue swelling or gas. No radiopaque foreign body. VASCULATURE: Peripheral vascular calcifications anteriorly. RAD/Elbow min 3 Views IMPRESSION: No acute or healing fracture or malalignment. Electronically Signed: Dejuan Owens MD at 22:57 EST ,
--- NOTE | 2023-01-11 22:30 | RAD_ITS ---
EXAM: XR THORACIC SPINE, 3 VIEWS CLINICAL INDICATION: trauma TECHNIQUE: Frontal, lateral and swimmer''s views of the thoracic spine. This report was created using [employer] report generation technology. COMPARISON: None. FINDINGS: VERTEBRAE: Unremarkable. No spondylolisthesis. Preservation of the normal thoracic kyphosis. No significant facet arthropathy. No acute or healing fracture or malalignment. No unusual lytic or sclerotic lesions of bone. DISC SPACES: Multilevel spine degenerative changes. SOFT TISSUES: Soft tissues are unremarkable. RAD/Thoracic Spine 3 Views IMPRESSION: No acute or healing fracture or malalignment. Electronically Signed: Dejuan Owens MD at 23:12 [facility] ,
--- NOTE | 2023-01-11 22:34 | EDS_ITS ---
HPI HPI - Fall History of Present Illness Chief Complaint: Fall Narrative Narrative: Patient presents with left elbow pain and midthoracic back pain after a fall. He has very minimal ambulation he was trying to transfer from his wheelchair to another chair and slid down sliding down hurting his mid lumbar region and also injuring his left elbow. No head injury no neck pain this was witnessed by was with him and that she is in the room and I am talking to her. [facility] Medical History Ambulates with cane Amputation of one or more toes Anxiety Anxiety and depression Arrhythmia Arthritis Aspiration into airway Aspiration pneumonia Atherosclerotic heart disease of crow coronary artery without angina pectoris Bilateral leg weakness Blind left eye Blister (nonthermal), left foot, initial encounter Bronchiectasis with (acute) exacerbation Cardiology follow-up encounter Chronic cough Chronic respiratory failure with hypoxia COPD (chronic obstructive pulmonary disease) CPAP (continuous positive airway pressure) dependence Debility, unspecified Depression Diabetes Essential hypertension Gastric reflux GERD (gastroesophageal reflux disease) High cholesterol History of aspiration pneumonia History of diabetes mellitus History of echocardiogram History of edema History of gout History of heart attack History of non-ST elevation myocardial infarction (NSTEMI) (08/2016) History of pain when walking History of steroid therapy History of stress test Hyperglycemia due to type 2 diabetes mellitus Hypertension Insulin dependent diabetes mellitus Kidney disease Kidney stones Kidney stones Leg pain, right Leukocytosis Low back pain Memory impairment Migraines Mood disorder Myocardial infarct Non-smoker Noncompliance by declining intervention or support On home oxygen therapy Peripheral vascular occlusive disease Pneumonia Prostate disease Pulmonary nodule, left Recurrent falls Right ankle pain Right foot pain Shortness of breath on exertion Silent aspiration Sleep apnea Tremor Type 2 diabetes mellitus Type 2 diabetes mellitus with diabetic polyneuropathy Ulcer of left foot, limited to breakdown of skin 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 Wears glasses Wound of left lower extremity Home Medications acetaminophen 500 mg tablet 1,000 mg PO QHS PRN PRN Pain 1-10 Or Fever 02/11/21 [History Last Taken 05/14/22 18:50 1000] aspirin 81 mg tablet,delayed release (Adult Aspirin Regimen) 81 mg PO DAILY heart health 11/05/21 [History Last Taken 08/29/22 08:00] spironolactone 25 mg tablet 25 mg PO QHS diuretic 11/08/21 [History Last Taken 08/29/22 22:00] peg [id number] 1 %-0.2 %-0.2 % eye drops (Artificial Tears ([id number])) 2 drp EACH EYE Q1H PRN DRY EYES #0 mL 11/14/21 [Rx Last Taken Unknown] nitroglycerin 0.4 mg sublingual tablet 0.4 mg sublingual Q5M PRN Chest Pain #30 tabs 11/25/21 [Rx Last Taken Unknown] finasteride 5 mg tablet 5 mg PO DAILY prostate #90 tabs 01/09/22 [Rx Last Taken 08/29/22 22:00] furosemide 40 mg tablet 40 mg PO DAILY fluid #90 tabs 01/09/22 [Rx Last Taken 08/29/22 08:00] albuterol sulfate 90 mcg/actuation aerosol inhaler 2 puff inhalation Q4H PRN shortness of breath or wheezing #8.5 grams 02/04/22 [Rx Last Taken Unknown] clopidogrel 75 mg tablet 75 mg PO DAILY blood thinner #90 tabs 03/30/22 [Rx Last Taken 08/29/22 08:00] isosorbide mononitrate 30 mg tablet,extended release 24 hr 30 mg PO DAILY heart #90 tabs 03/30/22 [Rx Last Taken 07/01/22] loratadine 10 mg tablet (Allergy Relief (loratadine)) 10 mg PO DAILY allergies 05/21/22 [History Last Taken 08/29/22 08:00] buspirone 7.5 mg tablet 15 mg PO TID mood #90 tabs 07/03/22 [Rx Last Taken 12/30/22] clonazepam 1 mg tablet 1 mg PO BID PRN PRN anxiety #14 tabs 07/03/22 [Rx Last Taken 12/30/22] fluoxetine 20 mg capsule 60 mg PO DAILY #0 caps 07/03/22 [Rx Last Taken 08/29/22 22:00] gauze bandage 4 X 4 (Bordered Gauze) #14 ea 07/03/22 [Rx Last Taken Unknown] nystatin 100,000 unit/gram topical powder (Nyamyc) 1 applic topical BID #0 grams 07/03/22 [Rx Last Taken Unknown] leslie (Ultra-Light Rollator misc) #1 ea 07/21/22 [Rx Last Taken Unknown] insulin lispro 100 unit/mL subcutaneous pen sliding scale dose subcut ACHS Check with primary doctor 08/12/22 [History Last Taken Unknown] amlodipine 5 mg tablet 10 mg PO DAILY #0 tabs 08/14/22 [Rx Last Taken 08/29/22 08:00] insulin lispro 100 unit/mL subcutaneous pen (Humalog KwikPen (U-100) Insulin) 10 unit (0.1 mL) subcut TIDAC #0 mL 09/01/22 [Rx Last Taken Unknown] menthol 0.44 %-zinc oxide 20.6 % topical ointment (Calmoseptine) 1 applic topical BID #0 grams 09/01/22 [Rx Last Taken Unknown] hydroxyzine HCl 10 mg tablet 10 mg PO QHS 12/02/22 [History Last Taken Unknown] insulin detemir U-100 100 unit/mL (3 mL) subcutaneous pen (Levemir FlexTouch U- 100 Insulin) 44 unit (0.44 mL) subcut QHS 3 months #39.6 mL 12/02/22 [Rx Last Taken Unknown] melatonin 3 mg tablet 3 mg PO QHS 12/02/22 [History Last Taken Unknown] pantoprazole 40 mg tablet,delayed release 40 mg PO DAILY gerd #90 tabs 12/02/22 [Rx Last Taken Unknown] pen needle, diabetic 33 gauge x 5/16 #200 ea 12/02/22 [Rx Last Taken Unknown] pregabalin 75 mg capsule (Lyrica) 75 mg PO BID #60 caps 12/24/22 [Rx Last Taken Unknown] losartan 50 mg tablet 25 mg PO DAILY bp #90 tabs 12/29/22 [Rx Last Taken U nknown] atorvastatin 80 mg tablet 80 mg PO QHS cholesterol #90 tabs 01/11/23 [Rx Last Taken Unknown] carvedilol 12.5 mg tablet 25 mg PO BID 3 months #360 tabs 01/11/23 [Rx Last Taken Unknown] metoclopramide HCl 5 mg tablet 5 mg PO TID 01/11/23 [History Last Taken Unknown] Allergy/AdvReac Type Severity Reaction Status Date / Time allopurinol AdvReac Vomiting Verified 01/11/23 19:38 Influenza Virus Vaccines AdvReac Vomiting Verified 01/11/23 19:38 pneumococcal vaccine AdvReac Vomiting Verified 01/11/23 19:38 Family History Mother Diabetes Heart disease CHF Father Heart disease [place]/CAD Myocardial infarction Surgical History H/O lithotripsy History of angioplasty of peripheral vessel (2016) History of angioplasty of peripheral vessel History of ankle surgery History of cardiac catheterization History of coronary artery stent placement (08/2016) History of coronary artery stent placement History of esophagogastroduodenoscopy (EGD) History of left heart catheterization (11/15/17) History of thyroid surgery Hx of lithotripsy Hx of surgery to heart and great vessels, presenting hazards to health Hx of surgical procedure Hx of thyroidectomy Hx of toe surgery Hx of toe surgery PEG (percutaneous endoscopic gastrostomy) status Social History household members: spouse housing: apartment Smoking Status: Never smoker alcohol intake: never substance use type: does not use ROS ROS ED ROS Narrative Social: Multiple falls lives with family Medications: Reviewed Past medical history: Reviewed Review of systems General: Patient has no head injury or loss of consciousness HEENT: No facial injury Neck: No neck pain Cardiovascular: Patient denies any chest pain or palpitations Chest wall: No chest wall contusions Respiratory: There is no shortness of breath Skin: No lacerations or abrasions Back: Thoracic back pain Musculoskeletal: Left elbow pain EXAM Physical Exam Narrative Exam Narrative: Physical exam Vitals reviewed General: Patient appears chronically ill. HEENT: No facial injury Head: No head injury Eyes: Extraocular movements intact nasal cannula in place Neck: No C-spine tenderness with full range of motion Heart: Regular rate normal pulses Chest wall: No chest wall pain Lungs coarse bilateral breath sounds no respiratory distress GI: Abdomen is soft and nontender there is no mass no guarding no abdominal wall contusion : Stable pelvis Musculoskeletal: Tenderness over the left elbow no other signs of trauma Back: Mid thoracic back pain but no step-offs or abrasions. Skin: No abrasions or laceration Const Vital Signs: 01/11/23 19:35 01/11/23 19:35 Temperature 98.6 F Temperature Source Temporal Pulse Rate 58 L Respiratory Rate 19 H Respiratory Effort Normal Respiratory Depth Normal Respiratory Pattern Normal Blood Pressure 149/75 H Blood Pressure Mean 99 Pulse Ox 97 99 Oxygen Delivery Method Nasal Cannula Nasal Cannula Oxygen Flow Rate (L/min) 4 4 [facility] Radiography Diagnostic Testing: Clinical Impression(s) from Imaging Studies Elbow X-Ray 01/11/23 22:30 IMPRESSION: No acute or healing fracture or malalignment. Electronically Signed: Dejuan Owens MD at 22:57 EST Reading Location ID and State: [facility] / [place] Tel , Service support , Left elbow x-ray interpreted by me as normal Thoracic x-ray read by me as normal Treatment and Re-Evaluation Narrative: Patient had a mechanical fall, no other injuries, no head injury therefore CT of the head is not needed. X-rays are unremarkable he appears well he wants to be discharged home he does not want to go to a [facility] again. I talked to the patient's . She is under the same impression. Discharge Plan Triage Chief Complaint: Fall ED Provider: Freddy Lemus Dx/Rx/DC Orders Clinical Impression: Fall, Contusion of elbow, Back contusion Instructions: Bruises (Contusions), Falls Prevent Outside Prescriptions: No Action aspirin [Adult Aspirin Regimen] 81 mg tablet,delayed release (DR/EC) 81 mg PO DAILY furosemide 40 mg tablet 40 mg PO DAILY Qty: 90 3RF finasteride 5 mg tablet 5 mg PO DAILY Qty: 90 3RF albuterol sulfate 90 mcg/actuation HFA aerosol inhaler 2 puff inhalation Q4H PRN (Reason: shortness of breath or wheezing) Qty: 8.5 3RF Rx Instructions: administer with spacer loratadine [Allergy Relief (loratadine)] 10 mg tablet 10 mg PO DAILY (DME) Ultra-Light Rollator Misc See Rx Instructions .Route Qty: 1 2RF Rx Instructions: As directed melatonin 3 mg tablet 3 mg PO QHS Label Comments: TAKE 1 TABLET BY MOUTH ONCE DAILY AT BEDTIME hydroxyzine HCl 10 mg tablet 10 mg PO QHS Label Comments: TAKE 1 TABLET BY MOUTH THREE TIMES DAILY NEEDED Levemir FlexTouch U-100 Insuln 100 unit/mL (3 mL) insulin pen 44 unit subcut QHS 90 Days Qty: 39.6 3RF (DME) pen needle, diabetic 33 gauge x 5/16 needle See Rx Instructions .Route Qty: 200 3RF Rx Instructions: As directed pantoprazole 40 mg tablet,delayed release (DR/EC) 40 mg PO DAILY Qty: 90 3RF acetaminophen 500 MG tablet 1,000 mg PO QHS PRN PRN (Reason: Pain 1-10 Or Fever) spironolactone 25 mg tablet 25 mg PO QHS Artificial Tears([id number]) 1-0.2-0.2 % Drops 2 drp EACH EYE Q1H PRN (Reason: DRY EYES) Qty: 0 0RF clonazepam 1 mg Tablet 1 mg PO BID PRN PRN (Reason: anxiety) Qty: 14 0RF nystatin [Nyamyc] 100,000 unit/gram Powder 1 applic topical BID Qty: 0 0RF Protocol: *Topical Application Instructions APPLICATION INSTRUCTIONS: to groin fluoxetine 20 mg Capsule 60 mg PO DAILY Qty: 0 0RF buspirone 7.5 mg tablet 15 mg PO TID Qty: 90 2RF (DME) gauze bandage [Bordered Gauze] 4 X 4 bandage See Rx Instructions .ROUTE .MEDSUPPLY Qty: 14 2RF Rx Instructions: Daily cleanse left foot wound with soap and water, dry and apply Betadine solution and apply clean dressing insulin lispro 100 unit/mL insulin pen subcut ACHS Label Comments: INJECT subcuaneously 8-16 units 5 (FIVE) times daily per sliding scale.] amlodipine 5 mg Tablet 10 mg PO DAILY Qty: 0 0RF insulin lispro [Humalog KwikPen Insulin] 100 unit/mL Insulin Pen 10 unit subcut TIDAC Qty: 0 0RF menthol-zinc oxide [Calmoseptine] 0.44-20.6 % Ointment 1 applic topical BID Qty: 0 0RF Protocol: *Topical Application Instructions APPLICATION INSTRUCTIONS: affected areas metoclopramide HCl 5 mg tablet 5 mg PO TID nitroglycerin 0.4 mg tablet, sublingual 0.4 mg SL Q5M PRN (Reason: Chest Pain) Qty: 30 0RF clopidogrel 75 mg tablet 75 mg PO DAILY Qty: 90 3RF isosorbide mononitrate 30 mg tablet extended release 24 hr 30 mg PO DAILY Qty: 90 3RF pregabalin [Lyrica] 75 mg capsule 75 mg PO BID Qty: 60 0RF losartan 50 mg tablet 25 mg PO DAILY Qty: 90 1RF atorvastatin 80 mg tablet 80 mg PO QHS Qty: 90 2RF carvedilol 12.5 mg tablet 25 mg PO BID 90 Days Qty: 360 2RF Primary Care Provider: Doretha Brown Referrals: Doretha Brown MD [Primary Care Provider] - 3-5 Days Disposition Disposition: Home, Self Care
[2023-01-11 23:20] VITALS: BP 173/78; PULSE 74; RESP 16; O2SAT 97
== END 2023-01-11 23:34 | disposition home or self-care (01) ==
PROVIDERS: Emergency Provider Emergency Medicine; PCP Internal Medicine; Visit Provider Emergency Medicine
DX: S20.224A Contusion of middle back wall of thorax, initial encounter (principal); J44.9 Chronic obstructive pulmonary disease, unspecified; E11.42 Type 2 diabetes mellitus with diabetic polyneuropathy; Z79.4 Long term (current) use of insulin; S50.02XA Contusion of left elbow, initial encounter; W07.XXXA Fall from chair, initial encounter; Y93.89 Activity, other specified; I25.10 Atherosclerotic heart disease of native coronary artery without angina pectoris; I10 Essential (primary) hypertension; I25.2 Old myocardial infarction; E78.00 Pure hypercholesterolemia, unspecified; Z79.02 Long term (current) use of antithrombotics/antiplatelets; Z79.82 Long term (current) use of aspirin; Z79.899 Other long term (current) drug therapy
CPT/HCPCS: 72072; 73080; 99284

== ENCOUNTER 2023-01-27 20:27 | Emergency (ER) | payer MEDICARE, MEDICAID, SELFPAY ==
[2023-01-27 20:28] VITALS: BP 142/80; PULSE 70; RESP 19; TEMP 36.3; O2SAT 96
--- NOTE | 2023-01-27 21:30 | RAD_ITS ---
INDICATION: SOB EXAMINATION/TECHNIQUE: X-RAY - XR Chest 1 View COMPARISON: 12/17/2022 FINDINGS: LUNGS: Hypoinflation. No consolidation, edema or effusion. No pneumothorax. MEDIASTINUM AND CARDIOVASCULAR STRUCTURES: Cardiac silhouette not enlarged. Central airways and mediastinal contour are unremarkable. RAD/Chest 1 View (Portable) IMPRESSION: No radiographic evidence of acute cardiopulmonary disease. Electronically Signed: Freddy Dillon MD at 22:09 EST ,
--- NOTE | 2023-01-27 21:36 | EX.ED.DYSGE1 ---
HPI History of Present Illness Chief Complaint: Shortness of Breath Informant: patient and spouse/S.O. Narrative Narrative: Patient here with single other for evaluation reporting dysuria over the past 2 days reported fevers today. Upon standing he felt little short of breath chronic 4 L oxygen with COPD history. History of coronary disease no chest pains. He takes Plavix no other anticoagulants. Denies back pain. Denies vomiting or diarrhea. Denies abdominal pain. [facility] Medical History Ambulates with cane Amputation of one or more toes Anxiety Anxiety and depression Arrhythmia Arthritis Aspiration into airway Aspiration pneumonia Atherosclerotic heart disease of [place] coronary artery without angina pectoris Bilateral leg weakness Blind left eye Blister (nonthermal), left foot, initial encounter Bronchiectasis with (acute) exacerbation Cardiology follow-up encounter Chronic cough Chronic respiratory failure with hypoxia COPD (chronic obstructive pulmonary disease) CPAP (continuous positive airway pressure) dependence Debility, unspecified Depression Diabetes Essential hypertension Gastric reflux GERD (gastroesophageal reflux disease) High cholesterol History of aspiration pneumonia History of diabetes mellitus History of echocardiogram History of edema History of gout History of heart attack History of non-ST elevation myocardial infarction (NSTEMI) (08/2016) History of pain when walking History of steroid therapy History of stress test Hyperglycemia due to type 2 diabetes mellitus Hypertension Insulin dependent diabetes mellitus Kidney disease Kidney stones Kidney stones Leg pain, right Leukocytosis Low back pain Memory impairment Migraines Mood disorder Myocardial infarct Non-smoker Noncompliance by declining intervention or support On home oxygen therapy Peripheral vascular occlusive disease Pneumonia Prostate disease Pulmonary nodule, left Recurrent falls Right ankle pain Right foot pain Shortness of breath on exertion Silent aspiration Sleep apnea Tremor Type 2 diabetes mellitus Type 2 diabetes mellitus with diabetic polyneuropathy Ulcer of left foot, limited to breakdown of skin 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 Wears glasses Wound of left lower extremity Home Medications acetaminophen 500 mg tablet 1,000 mg PO QHS PRN PRN Pain 1-10 Or Fever 02/11/21 [History Last Taken 05/14/22 18:50 1000] aspirin 81 mg tablet,delayed release (Adult Aspirin Regimen) 81 mg PO DAILY heart health 11/05/21 [History Last Taken 08/29/22 08:00] spironolactone 25 mg tablet 25 mg PO QHS diuretic 11/08/21 [History Last Taken 08/29/22 22:00] peg [id number] 1 %-0.2 %-0.2 % eye drops (Artificial Tears ([id number])) 2 drp EACH EYE Q1H PRN DRY EYES #0 mL 11/14/21 [Rx Last Taken Unknown] nitroglycerin 0.4 mg sublingual tablet 0.4 mg sublingual Q5M PRN Chest Pain #30 tabs 11/25/21 [Rx Last Taken Unknown] furosemide 40 mg tablet 40 mg PO DAILY fluid #90 tabs 01/09/22 [Rx Last Taken 08/29/22 08:00] albuterol sulfate 90 mcg/actuation aerosol inhaler 2 puff inhalation Q4H PRN shortness of breath or wheezing #8.5 grams 02/04/22 [Rx Last Taken Unknown] clopidogrel 75 mg tablet 75 mg PO DAILY blood thinner #90 tabs 03/30/22 [Rx Last Taken 08/29/22 08:00] isosorbide mononitrate 30 mg tablet,extended release 24 hr 30 mg PO DAILY heart #90 tabs 03/30/22 [Rx Last Taken 07/01/22] loratadine 10 mg tablet (Allergy Relief (loratadine)) 10 mg PO DAILY allergies 05/21/22 [History Last Taken 08/29/22 08:00] buspirone 7.5 mg tablet 15 mg PO TID mood #90 tabs 07/03/22 [Rx Last Taken 12/30/22] clonazepam 1 mg tablet 1 mg PO BID PRN PRN anxiety #14 tabs 07/03/22 [Rx Last Taken 12/30/22] fluoxetine 20 mg capsule 60 mg PO DAILY #0 caps 07/03/22 [Rx Last Taken 08/29/22 22:00] gauze bandage 4 X 4 (Bordered Gauze) #14 ea 07/03/22 [Rx Last Taken Unknown] nystatin 100,000 unit/gram topical powder (Nyamyc) 1 applic topical BID #0 grams 07/03/22 [Rx Last Taken Unknown] leslie (Ultra-Light Rollator misc) #1 ea 07/21/22 [Rx Last Taken Unknown] insulin lispro 100 unit/mL subcutaneous pen sliding scale dose subcut ACHS Check with primary doctor 08/12/22 [History Last Taken Unknown] amlodipine 5 mg tablet 10 mg PO DAILY #0 tabs 08/14/22 [Rx Last Taken 08/29/22 08:00] insulin lispro 100 unit/mL subcutaneous pen (Humalog KwikPen (U-100) Insulin) 10 unit (0.1 mL) subcut TIDAC #0 mL 09/01/22 [Rx Last Taken Unknown] menthol 0.44 %-zinc oxide 20.6 % topical ointment (Calmoseptine) 1 applic topical BID #0 grams 09/01/22 [Rx Last Taken Unknown] hydroxyzine HCl 10 mg tablet 10 mg PO QHS 12/02/22 [History Last Taken Unknown] insulin detemir U-100 100 unit/mL (3 mL) subcutaneous pen (Levemir FlexTouch U-100 Insulin) 44 unit (0.44 mL) subcut QHS 3 months #39.6 mL 12/02/22 [Rx Last Taken Unknown] melatonin 3 mg tablet 3 mg PO QHS 12/02/22 [History Last Taken Unknown] pantoprazole 40 mg tablet,delayed release 40 mg PO DAILY gerd #90 tabs 12/02/22 [Rx Last Taken Unknown] pen needle, diabetic 33 gauge x 5/16 #200 ea 12/02/22 [Rx Last Taken Unknown] pregabalin 75 mg capsule (Lyrica) 75 mg PO BID #60 caps 12/24/22 [Rx Last Taken Unknown] losartan 50 mg tablet 25 mg PO DAILY bp #90 tabs 12/29/22 [Rx Last Taken Unknown] atorvastatin 80 mg tablet 80 mg PO QHS cholesterol #90 tabs 01/11/23 [Rx Last Taken Unknown] carvedilol 12.5 mg tablet 25 mg PO BID 3 months #360 tabs 01/11/23 [Rx Last Taken Unknown] metoclopramide HCl 5 mg tablet 5 mg PO TID 01/11/23 [History Last Taken Unknown] finasteride 5 mg tablet 5 mg PO DAILY prostate #90 tabs 01/19/23 [Rx Last Taken Unknown] Allergy/AdvReac Type Severity Reaction Status Date / Time allopurinol AdvReac Vomiting Verified 01/27/23 20:32 Influenza Virus Vaccines AdvReac Vomiting Verified 01/27/23 20:32 pneumococcal vaccine AdvReac Vomiting Verified 01/27/23 20:32 Family History Mother Diabetes Heart disease CHF Father Heart disease NC/CAD Myocardial infarction Surgical History H/O lithotripsy History of angioplasty of peripheral vessel (2016) History of angioplasty of peripheral vessel History of ankle surgery History of cardiac catheterization History of coronary artery stent placement (08/2016) History of coronary artery stent placement History of esophagogastroduodenoscopy (EGD) History of left heart catheterization (11/15/17) History of thyroid surgery Hx of lithotripsy Hx of surgery to heart and great vessels, presenting hazards to health Hx of surgical procedure Hx of thyroidectomy Hx of toe surgery Hx of toe surgery PEG (percutaneous endoscopic gastrostomy) status Social History household members: spouse housing: apartment Smoking Status: Never smoker alcohol intake: never substance use type: does not use ROS ROS ED Constitutional Constitutional ED: Reports fever(s); Denies chills or sweats Eyes Eyes: Denies change in vision ENT ENT ED: Denies dysphagia or sore throat Cardiovascular Cardiovascular: Denies chest pain, leg edema, palpitations or racing heartbeat Respiratory/Chest Respiratory/Chest: Reports dyspnea; Denies cough or dyspnea on exertion Gastrointestinal Gastrointestinal: Denies abdominal pain, diarrhea, nausea or vomiting Genitourinary Genitourinary ED: Reports dysuria; Denies hematuria or urinary frequency Musculoskeletal Musculoskeletal: Denies back pain, extremity pain or neck pain Integumentary Denies rash or wounds Neurologic Neurologic: Denies headache(s), paresthesias or weakness EXAM Physical Exam Const Vital Signs: 01/27/23 20:28 01/27/23 21:52 01/27/23 21:52 Temperature 97.4 F L 97.9 F 97.9 F Temperature Source Temporal Temporal Temporal Pulse Rate 70 62 66 Respiratory Rate 19 H 20 H 20 H Respiratory Effort Respiratory Depth Respiratory Pattern Blood Pressure 142/80 H 190/92 H 190/92 H Blood Pressure Mean 100 124 124 Pulse Ox 96 99 99 Oxygen Delivery Method Nasal Cannula Nasal Cannula Nasal Cannula Oxygen Flow Rate (L/min) 4 4 4 01/27/23 21:52 01/27/23 21:52 01/27/23 21:57 Temperature Temperature Source Pulse Rate Respiratory Rate 20 H Respiratory Effort Normal Non-Labored Respiratory Depth Normal Respiratory Pattern Normal Blood Pressure Blood Pressure Mean Pulse Ox 99 Oxygen Delivery Method Nasal Cannula Nasal Cannula Oxygen Flow Rate (L/min) 4 4 Positive well nourished and well developed Constitutional Narrative: 4 L nasal cannula no respiratory distress General Appearance ED: well developed and NAD HEENT Reports moist mucous membranes normocephalic and atraumatic Eyes PERRL, EOMs intact bilaterally and conjunctivae normal General Eye ED: Yes normal appearance of both eyes Neck no lymphadenopathy and supple General: Negative for tenderness Chest Wall Chest: Negative for tenderness Resp normal respiratory effort and normal air movement Effort and Inspection: symmetric chest movement; Negative for respiratory distress Cardio regular rate, regular rhythm and no murmurs Peripheral Pulses: pulses 2+ throughout GI normal to inspection, nondistended, normoactive bowel sounds and non-tender GI Narrative: No supra pubic tenderness, no guarding or rebound. Palpation: Negative for guarding or rebound tenderness present Back/Spine no CVA tenderness and no thoracic nor lumbar tenderness Extremity normal to inspection General Extremety ED: Negative for edema or tenderness General Extremity: Negative for edema Neuro oriented x3 and no sensory deficits noted Sensorium / Orientation: awake and alert Skin no rashes or lesions noted and no wounds MDM MDM MDM Narrative Medical decision making narrative: Interventions / MDM: Differential diagnosis: UTI, COPD Diagnosis considered but do not suspect: Appendicitis or cholecystitis without tenderness in the abdomen My EKG interpretation: N/A Imaging independently reviewed and interpreted by myself: 1 view chest x-ray negative for acute process. External documents reviewed: N/A Test considered but not ordered:N/A ED course: Patient vital signs stable, oxygenation 4 L at his baseline. Work-up initiated through triage from nursing initial reported dyspnea. However this was briefly with standing and is typical for him. Chest x-ray COVID test negative. Reported dysuria past 2 days have a urine obtained was given Labs are stable creatinine 1.3. This is stable from previous white man. Culture was sent of the urine. However reevaluation patient reported his dysuria resolved with his sample. He will monitor symptoms. He will follow with the PCP. All questions were answered. Return precautions. Re-evaluation: stable Disposition discussed with patient/family/significant other: Patient and significant other Case discussed with consulting clinician: N/A History & Record Review Discussion w/independent historian: Patient and Significant other Additional record(s) reviewed:: Prior labs Lab Data Attestation: I reviewed the patient's lab results. Labs: Laboratory Results - last 24 hr 01/27/23 01/27/23 01/27/23 21:27 21:27 21:58 WBC 11.1 H RBC 4.51 L Hgb 12.7 L Hct 38.8 L MCV 86.0 MCH 28.2 MCHC 32.7 RDW Std Deviation 42.9 RDW Coeff of James 13.6 Plt Count 223 MPV 10.4 Immature Gran % (Auto) 0.400 Neut % (Auto) 76.2 H Lymph % (Auto) 15.4 L [place] % (Auto) 7.0 Eos % (Auto) 0.7 Baso % (Auto) 0.3 Absolute Neuts (auto) 8.4 H Absolute Lymphs (auto) 1.71 Nucleated RBC % 0 Sodium 142 Potassium 4.5 Chloride 104 Carbon Dioxide 32.0 Anion Gap 6 BUN 19 H Creatinine 1.31 H Estim Creat Clear Calc 59.59 Est GFR (MDRD) Af Amer 71 Est GFR (MDRD) Non-Af 59 L BUN/Creatinine Ratio 14.5 Glucose 236 H Calcium 9.5 Troponin I High Sens 11 Urine Color Yellow Urine Clarity Clear Urine pH 5.0 Ur Specific [place] 1.020 Urine Protein 30 H Urine Glucose (UA) Normal Urine Ketones Negative Urine Occult Blood Negative Urine Nitrite Negative Urine Bilirubin Negative Urine Urobilinogen Normal Ur Leukocyte Esterase Negative Urine RBC 0 SEEN Urine WBC 0 SEEN Ur Squamous Epith Cells 0 SEEN Urine Bacteria 0 SEEN Urine Mucus 0 SEEN Radiography Diagnostic Testing: Clinical Impression(s) from Imaging Studies Chest X-Ray 01/27/23 21:30 IMPRESSION: No radiographic evidence of acute cardiopulmonary disease. Electronically Signed: Freddy Dillon MD at 22:09 EST , Discharge Plan Triage Chief Complaint: Shortness of Breath ED Provider: Genaro Moncada Dx/Rx/DC Orders Clinical Impression: Dysuria, COPD (chronic obstructive pulmonary disease), CKD (chronic kidney disease) Instructions: Dysuria, Discharge Instructions: COPD Prescriptions: No Action aspirin [Adult Aspirin Regimen] 81 mg tablet,delayed release (DR/EC) 81 mg PO DAILY furosemide 40 mg tablet 40 mg PO DAILY Qty: 90 3RF albuterol sulfate 90 mcg/actuation HFA aerosol inhaler 2 puff inhalation Q4H PRN (Reason: shortness of breath or wheezing) Qty: 8.5 3RF Rx Instructions: administer with spacer loratadine [Allergy Relief (loratadine)] 10 mg tablet 10 mg PO DAILY (DME) Ultra-Light Rollator Misc See Rx Instructions .Route Qty: 1 2RF Rx Instructions: As directed melatonin 3 mg tablet 3 mg PO QHS Label Comments: TAKE 1 TABLET BY MOUTH ONCE DAILY AT BEDTIME hydroxyzine HCl 10 mg tablet 10 mg PO QHS Label Comments: TAKE 1 TABLET BY MOUTH THREE TIMES DAILY NEEDED Levemir FlexTouch U-100 Insuln 100 unit/mL (3 mL) insulin pen 44 unit subcut QHS 90 Days Qty: 39.6 3RF (DME) pen needle, diabetic 33 gauge x 5/16 needle See Rx Instructions .Route Qty: 200 3RF Rx Instructions: As directed pantoprazole 40 mg tablet,delayed release (DR/EC) 40 mg PO DAILY Qty: 90 3RF acetaminophen 500 MG tablet 1,000 mg PO QHS PRN PRN (Reason: Pain 1-10 Or Fever) spironolactone 25 mg tablet 25 mg PO QHS Artificial Tears([id number]) 1-0.2-0.2 % Drops 2 drp EACH EYE Q1H PRN (Reason: DRY EYES) Qty: 0 0RF clonazepam 1 mg Tablet 1 mg PO BID PRN PRN (Reason: anxiety) Qty: 14 0RF nystatin [Nyamyc] 100,000 unit/gram Powder 1 applic topical BID Qty: 0 0RF Protocol: *Topical Application Instructions APPLICATION INSTRUCTIONS: to groin fluoxetine 20 mg Capsule 60 mg PO DAILY Qty: 0 0RF buspirone 7.5 mg tablet 15 mg PO TID Qty: 90 2RF (DME) gauze bandage [Bordered Gauze] 4 X 4 bandage See Rx Instructions .ROUTE .MEDSUPPLY Qty: 14 2RF Rx Instructions: Daily cleanse left foot wound with soap and water, dry and apply Betadine solution and apply clean dressing insulin lispro 100 unit/mL insulin pen subcut ACHS Label Comments: INJECT subcuaneously 8-16 units 5 (FIVE) times daily per sliding scale.] amlodipine 5 mg Tablet 10 mg PO DAILY Qty: 0 0RF insulin lispro [Humalog KwikPen Insulin] 100 unit/mL Insulin Pen 10 unit subcut TIDAC Qty: 0 0RF menthol-zinc oxide [Calmoseptine] 0.44-20.6 % Ointment 1 applic topical BID Qty: 0 0RF Protocol: *Topical Application Instructions APPLICATION INSTRUCTIONS: affected areas metoclopramide HCl 5 mg tablet 5 mg PO TID nitroglycerin 0.4 mg tablet, sublingual 0.4 mg SL Q5M PRN (Reason: Chest Pain) Qty: 30 0RF clopidogrel 75 mg tablet 75 mg PO DAILY Qty: 90 3RF isosorbide mononitrate 30 mg tablet extended release 24 hr 30 mg PO DAILY Qty: 90 3RF pregabalin [Lyrica] 75 mg capsule 75 mg PO BID Qty: 60 0RF losartan 50 mg tablet 25 mg PO DAILY Qty: 90 1RF atorvastatin 80 mg tablet 80 mg PO QHS Qty: 90 2RF carvedilol 12.5 mg tablet 25 mg PO BID 90 Days Qty: 360 2RF finasteride 5 mg tablet 5 mg PO DAILY Qty: 90 3RF Primary Care Provider: Doretha Brown Referrals: Doretha Brown MD [Primary Care Provider] - Activity Restrictions/Additional Instructions: Your urine symptoms resolved with sample in the ED. There is no infection. Urine culture is sent, you will be contacted if anything abnormal. Your labs are stable. COVID-negative. Chest x-ray negative. Monitor symptoms and follow-up with your doctor. Return if any worsening symptoms. Disposition Disposition: Home, Self Care Discharge Date/Time: 01/27/23 23:09
[2023-01-27 21:43] LABS: Absolute Lymphocyte Count 1.71 X10^3/uL (0.83-4.51); Absolute Neutrophil Count 8.4 X10^3/uL (2.0-7.7); Basophil# 0.03 X10^3/uL; Basophil% 0.3 % (0-1); Eosinophil# 0.08 X10^3/uL; Eosinophils% 0.7 % (0-5); Hematocrit 38.8 % (40-54); Hemoglobin 12.7 g/dL (13.0-16.5); Lymphocyte # 1.71 X10^3/ul (0.83-4.51); Lymphocyte % 15.4 % (19-41); Mean Corp Hgb Conc 32.7 g/dL (32-36); Mean Corpuscular Hgb 28.2 pg (27.0-32.0); Mean Platelet Vol. 10.4 fl (6.2-12.0); Monocyte# 0.78 X10^3/uL; NRBC Flagged by Analyzer 0 % (0-5); Neutrophil # 8.43 X10^3/uL (2.7-7.7); Neutrophil % 76.2 % (47-70); Platelet Count 223 K/mm3 (150-450); RBC Distribution Width CV 13.6 % (11.6-14.6); RBC Distribution Width SD 42.9 fl (35.1-43.9); Red Blood Count 4.51 M/mm3 (4.6-6.2); White Blood Count 11.1 K/mm3 (4.4-11.0)
[2023-01-27 21:52] VITALS: BP 190/92; PULSE 62; PULSE 66; RESP 20; TEMP 36.6; O2SAT 99; BMI 40.0
[2023-01-27 22:08] LABS: Bacteria 0 SEEN /hpf (None Seen); Mucous, Urine 0 SEEN /hpf (<or=2+); Red Blood Cells-Urine 0 SEEN /hpf (0-5); Squamous Epithelial Cells - UA 0 SEEN /hpf (0-5); White Blood Cells 0 SEEN /hpf (0-5)
[2023-01-27 22:12] LABS: Color, Urine Yellow (Yellow); Glucose, Dipstick Normal (Normal); Ketone-Dipstick Negative (Negative); Leukocyte Esterase-Dipstick Negative /ul (Negative); Nitrite-Dipstick Negative (Negative); Occult Blood-Urine Negative /ul (Negative); Protein-Dipstick 30 mg/dl (Negative); Urine Bilirubin Dipstick Negative (Negative); Urine Clarity Clear (Clear); Urine Urobilinogen Normal (Normal)
[2023-01-27 22:15] LABS: Anion Gap 6 (5-15); BUN 19 mg/dL (7-18); BUN/Creat Ratio 14.5 RATIO (10-20); Calcium,Total 9.5 mg/dL (8.5-10.1); Chloride 104 mmol/L (98-107); Creatinine, Serum 1.31 mg/dL (0.70-1.30); EST Glomerular Filtration Rate 59 mL/min (>60); Est Glom Filt Rate - Afr Amer 71 mL/min (>60); Estimated Creatinine Clearance 59.59 ml/min; Glucose 236 mg/dL (74-106); Potassium 4.5 mmol/L (3.5-5.1); Sodium Level 142 mmol/L (136-145); Troponin-I HS 11 pg/mL (3.0-78.0)
== END 2023-01-27 23:09 | disposition home or self-care (01) ==
PROVIDERS: Emergency Provider Emergency Medicine; PCP Internal Medicine; Visit Provider Emergency Medicine
DX: J44.9 Chronic obstructive pulmonary disease, unspecified (principal); E11.22 Type 2 diabetes mellitus with diabetic chronic kidney disease; E11.42 Type 2 diabetes mellitus with diabetic polyneuropathy; E11.65 Type 2 diabetes mellitus with hyperglycemia; R30.0 Dysuria; N18.9 Chronic kidney disease, unspecified; I12.9 Hypertensive chronic kidney disease with stage 1 through stage 4 chronic kidney disease, or unspecified chronic kidney disease; E78.00 Pure hypercholesterolemia, unspecified; I25.10 Atherosclerotic heart disease of native coronary artery without angina pectoris; Z99.81 Dependence on supplemental oxygen; Z20.822 Contact with and (suspected) exposure to COVID-19
CPT/HCPCS: 71045; 80048; 81001; 84484; 85025; 87086; 87088; 87811; 94760; 99282; A4216

== ENCOUNTER → 2023-03-04 | Outpatient (CLI) | payer MEDICARE, MEDICAID, SELFPAY ==
[2023-03-04 17:17] LABS: Hematocrit 40.4 % (40-54); Hemoglobin 12.4 g/dL (13.0-16.5); Mean Corp Hgb Conc 30.7 g/dL (32-36); Mean Corpuscular Hgb 26.9 pg (27.0-32.0); Mean Corpuscular Volume 87.6 fL (80-94); Mean Platelet Vol. 11.5 fl (6.2-12.0); Platelet Count 207 K/mm3 (150-450); RBC Distribution Width CV 14.3 % (11.6-14.6); RBC Distribution Width SD 46.3 fl (35.1-43.9); Red Blood Count 4.61 M/mm3 (4.6-6.2); White Blood Count 8.9 K/mm3 (4.4-11.0)
[2023-03-04 17:23] LABS: Anion Gap 4 (5-15); BUN 24 mg/dL (7-18); BUN/Creat Ratio 17.9 RATIO (10-20); Chloride 102 mmol/L (98-107); Creatinine, Serum 1.34 mg/dL (0.70-1.30); EST Glomerular Filtration Rate 57 mL/min (>60); Est Glom Filt Rate - Afr Amer 69 mL/min (>60); Glucose 205 mg/dL (74-106); Magnesium 1.9 mg/dL (1.6-2.6); Phosphorus 3.8 mg/dL (2.5-4.9); Potassium 4.4 mmol/L (3.5-5.1); Sodium Level 139 mmol/L (136-145)
== END | disposition home or self-care (01) ==
PROVIDERS: PCP Internal Medicine; Referring Provider Internal Medicine Nephrology; Visit Provider Internal Medicine Nephrology
DX: E11.22 Type 2 diabetes mellitus with diabetic chronic kidney disease (principal); N18.31 Chronic kidney disease, stage 3a; I49.9 Cardiac arrhythmia, unspecified
CPT/HCPCS: 36415; 80048; 83735; 84100; 85027

== ENCOUNTER 2023-03-08 16:48 | Emergency (ER) | payer MEDICARE, MEDICAID, SELFPAY ==
[2023-03-08 16:49] VITALS: TEMP 37.4; BMI 42.8
[2023-03-08 16:51] VITALS: BP 152/98; PULSE 66; RESP 20; TEMP 37.4; O2SAT 95
[2023-03-08 16:54] VITALS: TEMP 37.1
--- NOTE | 2023-03-08 17:24 | EX.ED.DYSGE1 ---
HPI History of Present Illness Chief Complaint: Weakness Informant: patient and spouse/S.O. Narrative Narrative: Patient presents with generalized weakness. Patient noticed the weakness really kicked in more today. But the last 2 or 3 days he has had some generalized weakness. His appetite has been down although he has been eating and drinking and not having vomiting nausea or diarrhea. He had some dysuria. He might of had fevers but none measured. No myalgias. He is not having coughing or trouble breathing. He also has an ulcer on the bottom of his left foot that he is seeing wound care for. However it is doing well and has not worsened. His biggest complaint is just the weakness that is generalized. Its not localized to 1 area extremity. No visual or speech problems. This does not present as a neurologic weakness from stroke. This is more generalized full body metabolic issue. [facility] Medical History Ambulates with cane Amputation of one or more toes Anxiety Anxiety and depression Arrhythmia Arthritis Aspiration into airway Aspiration pneumonia Atherosclerotic heart disease of [place] coronary artery without angina pectoris Bilateral leg weakness Blind left eye Blister (nonthermal), left foot, initial encounter Bronchiectasis with (acute) exacerbation Cardiology follow-up encounter Chronic cough Chronic respiratory failure with hypoxia COPD (chronic obstructive pulmonary disease) CPAP (continuous positive airway pressure) dependence Debility, unspecified Depression Diabetes Essential hypertension Gastric reflux GERD (gastroesophageal reflux disease) High cholesterol History of aspiration pneumonia History of diabetes mellitus History of echocardiogram History of edema History of gout History of heart attack History of non-ST elevation myocardial infarction (NSTEMI) (08/2016) History of pain when walking History of steroid therapy History of stress test Hyperglycemia due to type 2 diabetes mellitus Hypertension Insulin dependent diabetes mellitus Kidney disease Kidney stones Kidney stones Leg pain, right Leukocytosis Low back pain Memory impairment Migraines Mood disorder Myocardial infarct Non-smoker Noncompliance by declining intervention or support On home oxygen therapy Peripheral vascular occlusive disease Pneumonia Prostate disease Pulmonary nodule, left Recurrent falls Right ankle pain Right foot pain Shortness of breath on exertion Silent aspiration Sleep apnea Tremor Type 2 diabetes mellitus Type 2 diabetes mellitus with diabetic polyneuropathy Ulcer of left foot, limited to breakdown of skin 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 Wears glasses Wound of left lower extremity Home Medications acetaminophen 500 mg tablet 1,000 mg PO QHS PRN PRN Pain 1-10 Or Fever 02/11/21 [History Last Taken 05/14/22 18:50 1000] aspirin 81 mg tablet,delayed release (Adult Aspirin Regimen) 81 mg PO DAILY heart health 11/05/21 [History Last Taken 08/29/22 08:00] spironolactone 25 mg tablet 25 mg PO QHS diuretic 11/08/21 [History Last Taken 08/29/22 22:00] peg [id number] 1 %-0.2 %-0.2 % eye drops (Artificial Tears ([id number])) 2 drp EACH EYE Q1H PRN DRY EYES #0 mL 11/14/21 [Rx Last Taken Unknown] nitroglycerin 0.4 mg sublingual tablet 0.4 mg sublingual Q5M PRN Chest Pain #30 tabs 11/25/21 [Rx Last Taken Unknown] clopidogrel 75 mg tablet 75 mg PO DAILY blood thinner #90 tabs 03/30/22 [Rx Last Taken 08/29/22 08:00] isosorbide mononitrate 30 mg tablet,extended release 24 hr 30 mg PO DAILY heart #90 tabs 03/30/22 [Rx Last Taken 07/01/22] loratadine 10 mg tablet (Allergy Relief (loratadine)) 10 mg PO DAILY allergies 05/21/22 [History Last Taken 08/29/22 08:00] buspirone 7.5 mg tablet 15 mg PO TID mood #90 tabs 07/03/22 [Rx Last Taken 12/30/22] clonazepam 1 mg tablet 1 mg PO BID PRN PRN anxiety #14 tabs 07/03/22 [Rx Last Taken 12/30/22] fluoxetine 20 mg capsule 60 mg PO DAILY #0 caps 07/03/22 [Rx Last Taken 08/29/22 22:00] gauze bandage 4 X 4 (Bordered Gauze) #14 ea 07/03/22 [Rx Last Taken Unknown] nystatin 100,000 unit/gram topical powder (Nyamyc) 1 applic topical BID #0 grams 07/03/22 [Rx Last Taken Unknown] leslie (Ultra-Light Rollator misc) #1 ea 07/21/22 [Rx Last Taken Unknown] insulin lispro 100 unit/mL subcutaneous pen sliding scale dose subcut ACHS Check with primary doctor 08/12/22 [History Last Taken Unknown] amlodipine 5 mg tablet 10 mg PO DAILY #0 tabs 08/14/22 [Rx Last Taken 08/29/22 08:00] melatonin 3 mg tablet 3 mg PO QHS 12/02/22 [History Last Taken Unknown] pantoprazole 40 mg tablet,delayed release 40 mg PO DAILY gerd #90 tabs 12/02/22 [Rx Last Taken Unknown] pen needle, diabetic 33 gauge x 04/13 #200 ea 12/02/22 [Rx Last Taken Unknown] losartan 50 mg tablet 25 mg PO DAILY bp #90 tabs 12/29/22 [Rx Last Taken Unknown] atorvastatin 80 mg tablet 80 mg PO QHS cholesterol #90 tabs 01/11/23 [Rx Last Taken Unknown] carvedilol 12.5 mg tablet 25 mg PO BID 3 months #360 tabs 01/11/23 [Rx Last Taken Unknown] finasteride 5 mg tablet 5 mg PO DAILY prostate #90 tabs 01/19/23 [Rx Last Taken Unknown] pregabalin 75 mg capsule (Lyrica) 75 mg PO BID #60 caps 02/09/23 [Rx Last Taken Unknown] albuterol sulfate 90 mcg/actuation aerosol inhaler 2 puff inhalation Q4H PRN shortness of breath or wheezing #8.5 grams 02/26/23 [Rx Last Taken Unknown] furosemide 40 mg tablet 40 mg PO DAILY fluid #90 tabs 03/01/23 [Rx Last Taken Unknown] metoclopramide HCl 5 mg tablet 5 mg PO TID #90 tabs 03/01/23 [Rx Last Taken Unknown] hydroxyzine HCl 25 mg tablet 25 mg PO QHS PRN anxiety #30 tabs 03/04/23 [Rx Last Taken Unknown] insulin detemir U-100 100 unit/mL (3 mL) subcutaneous pen (Levemir FlexTouch U-100 Insulin) 40 unit (0.4 mL) subcut QHS 3 months #36 mL 03/04/23 [Rx Last Taken Unknown] insulin lispro 100 unit/mL subcutaneous pen (Humalog KwikPen (U-100) Insulin) 14 unit (0.14 mL) subcut TIDAC 3 months #37.8 mL 03/04/23 [Rx Last Taken Unknown] cephalexin 500 mg capsule 500 mg PO Q6 #40 CAPSULES 03/08/23 [Rx Last Taken Unknown] Allergy/AdvReac Type Severity Reaction Status Date / Time allopurinol AdvReac Vomiting Verified 03/04/23 14:15 Influenza Virus Vaccines AdvReac Vomiting Verified 03/04/23 14:15 pneumococcal vaccine AdvReac Vomiting Verified 03/04/23 14:15 Family History Mother Diabetes Heart disease CHF Father Heart disease [place]/CAD Myocardial infarction Surgical History H/O lithotripsy History of angioplasty of peripheral vessel (2017) History of angioplasty of peripheral vessel History of ankle surgery History of cardiac catheterization History of coronary artery stent placement (08/2016) History of coronary artery stent placement History of esophagogastroduodenoscopy (EGD) History of left heart catheterization (11/15/17) History of thyroid surgery Hx of lithotripsy Hx of surgery to heart and great vessels, presenting hazards to health Hx of surgical procedure Hx of thyroidectomy Hx of toe surgery Hx of toe surgery PEG (percutaneous endoscopic gastrostomy) status Social History household members: spouse housing: apartment Smoking Status: Never smoker alcohol intake: never substance use type: does not use ROS ROS ED Constitutional Constitutional ED: Reports subjective ENT ENT ED: Denies rhinorrhea or sore throat Cardiovascular Cardiovascular: Denies chest pain, palpitations or racing heartbeat Respiratory/Chest Respiratory/Chest: Reports other Details: Patient has COPD. He is on 4 L normally. He does not feel as though this is gotten worse or changed. ; Denies cough, dyspnea or sputum Gastrointestinal Gastrointestinal: Denies abdominal pain, diarrhea, nausea or vomiting Genitourinary Genitourinary ED: Reports dysuria Musculoskeletal Musculoskeletal: Denies myalgias Integumentary Denies rash Neurologic Neurologic: Denies headache(s), paresthesias or weakness Allergic/Immunologic Allergic/Immunologic ED: Denies urticaria EXAM Physical Exam Narrative Exam Narrative: Patient awake alert laying in bed. He does look a little bit tired but he is alert oriented and gives a reasonably good history. HEENT shows no trauma. Mucous membranes might be a little bit dry. Neck is supple Lungs are clear. Saturations are 100% on 4 L while I am in the room. This shows no hypoxia. Heart is regular with rate about 70. I do not hear a murmur. Abdomen is not tender. No notable CVA or suprapubic tenderness on exam Extremities: I did take off the sock and boot on the left leg. He has also this about a centimeter and a half around the bottom of the left heel but it looks like it is healing well and does not look acutely infected at all. There is no surrounding erythema. There is no drainage. Neurologically he is awake and alert and appropriate. He does seem a bit tired but there is no focal deficit or lateralizing deficit on exam. Const Vital Signs: 03/08/23 16:49 03/08/23 16:51 03/08/23 16:51 Temperature 99.3 F H 99.3 F H Temperature Source Temporal Temporal Pulse Rate 66 Respiratory Rate 20 H Respiratory Effort Normal Respiratory Pattern Normal Blood Pressure 152/98 H Blood Pressure Mean 116 Pulse Ox 95 Oxygen Delivery Method Oxygen Flow Rate (L/min) 03/08/23 16:54 03/08/23 19:15 Temperature 98.8 F Temperature Source Oral Pulse Rate 74 Respiratory Rate Respiratory Effort Respiratory Pattern Blood Pressure Blood Pressure Mean Pulse Ox 100 Oxygen Delivery Method Nasal Cannula Oxygen Flow Rate (L/min) 4 MDM MDM MDM Narrative Medical decision making narrative: Depend interpretation the patient's single view chest x-ray shows cardiomegaly which has been seen before but no acute process. I am awaiting the final read. Patient's white count is elevated at 16.3. Electrolytes show no marked abnormalities. Mild elevation in creatinine at 1.4. Glucose is controlled at 109. Liver function test look good. Alk phos was minimally up at 142. Lactic acid was a little bit up at 2.3. He is given some IV fluids here. Urine shows sign of infection with cloudy urine leukocyte Estrace, nitrites, and white cells. I am treating with IV antibiotics here. I talked with the patient and his . I was concerned about his weakness. But he states he gets around with a rollator and moves very little at home anyway. He does not really get up and walk around. He is still eating and drinking although he has had a slight decrease of appetite. He denies vomiting or nausea. He would prefer to go home and try antibiotics and if its not working or he is worsening comes back. I think this is a reasonable option at this time. I will do a bladder scan. My concern is that this patient with his age and overall immobility might be getting some poor emptying. He may benefit from a catheter to decompress his bladder if it is still enlarged. His bladder had about 130 cc of volume but this is actually not a true postvoid either. I do not think this justifies a [place]. Patient still feels well. He wants to go home on antibiotics and we will do this. He has 2 family members here with him 2. Lab Data Attestation: I reviewed the patient's lab results. Labs: Laboratory Results - last 24 hr 03/08/23 03/08/23 03/08/23 17:35 17:35 17:35 WBC 16.3 H RBC 4.53 L Hgb 12.6 L Hct 40.3 MCV 89.0 MCH 27.8 MCHC 31.3 L RDW Std Deviation 46.5 H RDW Coeff of James 14.6 Plt Count 225 MPV 11.5 Immature Gran % (Auto) 0.600 Neut % (Auto) 77.6 H Lymph % (Auto) 12.9 L Ross % (Auto) 7.2 Eos % (Auto) 1.3 Baso % (Auto) 0.4 Absolute Neuts (auto) 12.7 H Absolute Lymphs (auto) 2.10 Nucleated RBC % 0 Sodium 139 Potassium 3.9 Chloride 103 Carbon Dioxide 32.0 Anion Gap 4 L BUN 17 Creatinine 1.40 H Estim Creat Clear Calc 55.04 Est GFR (MDRD) Af Amer 66 Est GFR (MDRD) Non-Af 54 L BUN/Creatinine Ratio 12.1 Glucose 109 H Lactic Acid 2.1 H* Calcium 9.2 Total Bilirubin 0.60 AST 30 ALT 21 Alkaline Phosphatase 142 H Total Protein 7.6 Albumin 3.3 Globulin 4.3 H Albumin/Globulin Ratio 0.8 L Urine Color Urine Clarity Urine pH Ur Specific [place] Urine Protein Urine Glucose (UA) Urine Ketones Urine Occult Blood Urine Nitrite Urine Bilirubin Urine Urobilinogen Ur Leukocyte Esterase Urine RBC Urine WBC Ur Squamous Epith Cells Urine Bacteria Urine Mucus 03/08/23 18:05 WBC RBC Hgb Hct MCV MCH MCHC RDW Std Deviation RDW Coeff of James Plt Count MPV Immature Gran % (Auto) Neut % (Auto) Lymph % (Auto) Ross % (Auto) Eos % (Auto) Baso % (Auto) Absolute Neuts (auto) Absolute Lymphs (auto) Nucleated RBC % Sodium Potassium Chloride Carbon Dioxide Anion Gap BUN Creatinine Estim Creat Clear Calc Est GFR (MDRD) Af Amer Est GFR (MDRD) Non-Af BUN/Creatinine Ratio Glucose Lactic Acid Calcium Total Bilirubin AST ALT Alkaline Phosphatase Total Protein Albumin Globulin Albumin/Globulin Ratio Urine Color Yellow Urine Clarity Sl. Cloudy Urine pH 5.0 Ur Specific [place] 1.015 Urine Protein 30 H Urine Glucose (UA) Normal Urine Ketones Negative Urine Occult Blood 10 H Urine Nitrite Positive H Urine Bilirubin Negative Urine Urobilinogen Normal Ur Leukocyte Esterase 500 H Urine RBC 0-5 SEEN Urine WBC 10-25 SEEN Ur Squamous Epith Cells 0 SEEN Urine Bacteria 3+ Urine Mucus 0 SEEN Radiography Diagnostic Testing: Clinical Impression(s) from Imaging Studies Chest X-Ray 03/08/23 17:52 IMPRESSION: No acute radiographic abnormalities. Low lung volumes. Electronically Signed: Mac Hunt MD at 19:24 EDT , Discharge Plan Triage Chief Complaint: Weakness ED Provider: Hema Larsen Dx/Rx/DC Orders Clinical Impression: Urinary tract infection, Generalized weakness, Mild dehydration Instructions: UTIs Understanding Prescriptions: New cephalexin [cephalexin] 500 mg capsule 500 mg PO Q6 Qty: 40 0RF No Action aspirin [Adult Aspirin Regimen] 81 mg tablet,delayed release (DR/EC) 81 mg PO DAILY loratadine [Allergy Relief (loratadine)] 10 mg tablet 10 mg PO DAILY (DME) Ultra-Light Rollator Misc See Rx Instructions .Route Qty: 1 2RF Rx Instructions: As directed albuterol sulfate 90 mcg/actuation HFA aerosol inhaler 2 puff inhalation Q4H PRN (Reason: shortness of breath or wheezing) Qty: 8.5 3RF Rx Instructions: administer with spacer melatonin 3 mg tablet 3 mg PO QHS Label Comments: TAKE 1 TABLET BY MOUTH ONCE DAILY AT BEDTIME (DME) pen needle, diabetic 33 gauge x 5/16 needle See Rx Instructions .Route Qty: 200 3RF Rx Instructions: As directed pantoprazole 40 mg tablet,delayed release (DR/EC) 40 mg PO DAILY Qty: 90 3RF hydroxyzine HCl 25 mg tablet 25 mg PO QHS PRN (Reason: anxiety) Qty: 30 3RF insulin lispro [Humalog KwikPen Insulin] 100 unit/mL insulin pen 14 unit subcut TIDAC 90 Days Qty: 37.8 2RF Levemir FlexTouch U-100 Insuln 100 unit/mL (3 mL) insulin pen 40 unit subcut QHS 90 Days Qty: 36 3RF acetaminophen 500 MG tablet 1,000 mg PO QHS PRN PRN (Reason: Pain 1-10 Or Fever) spironolactone 25 mg tablet 25 mg PO QHS Artificial Tears([id number]) 1-0.2-0.2 % Drops 2 drp EACH EYE Q1H PRN (Reason: DRY EYES) Qty: 0 0RF clonazepam 1 mg Tablet 1 mg PO BID PRN PRN (Reason: anxiety) Qty: 14 0RF nystatin [Nyamyc] 100,000 unit/gram Powder 1 applic topical BID Qty: 0 0RF Protocol: *Topical Application Instructions APPLICATION INSTRUCTIONS: to groin fluoxetine 20 mg Capsule 60 mg PO DAILY Qty: 0 0RF buspirone 7.5 mg tablet 15 mg PO TID Qty: 90 2RF (DME) gauze bandage [Bordered Gauze] 4 X 4 bandage See Rx Instructions .ROUTE .MEDSUPPLY Qty: 14 2RF Rx Instructions: Daily cleanse left foot wound with soap and water, dry and apply Betadine solution and apply clean dressing insulin lispro 100 unit/mL insulin pen subcut ACHS Label Comments: INJECT subcuaneously 8-16 units 5 (FIVE) times daily per sliding scale.] amlodipine 5 mg Tablet 10 mg PO DAILY Qty: 0 0RF nitroglycerin 0.4 mg tablet, sublingual 0.4 mg SL Q5M PRN (Reason: Chest Pain) Qty: 30 0RF clopidogrel 75 mg tablet 75 mg PO DAILY Qty: 90 3RF isosorbide mononitrate 30 mg tablet extended release 24 hr 30 mg PO DAILY Qty: 90 3RF losartan 50 mg tablet 25 mg PO DAILY Qty: 90 1RF atorvastatin 80 mg tablet 80 mg PO QHS Qty: 90 2RF carvedilol 12.5 mg tablet 25 mg PO BID 90 Days Qty: 360 2RF finasteride 5 mg tablet 5 mg PO DAILY Qty: 90 3RF pregabalin [Lyrica] 75 mg capsule 75 mg PO BID Qty: 60 0RF furosemide 40 mg tablet 40 mg PO DAILY Qty: 90 3RF metoclopramide HCl 5 mg tablet 5 mg PO TID Qty: 90 11RF Primary Care Provider: Doretha Brown Referrals: Doretha Brown MD [Primary Care Provider] - 1-2 Days if not improving Disposition Disposition: Home, Self Care
--- NOTE | 2023-03-08 17:52 | RAD_ITS ---
INDICATION: COPD EXAMINATION/TECHNIQUE: X-RAY - XR Chest 1 View COMPARISON: 01/27/2023. FINDINGS: The lungs are clear. Low lung volumes. The cardiomediastinal silhouette is unremarkable. No pleural effusion or pneumothorax. Degenerative changes of the thoracic spine. RAD/Chest 1 View (Portable) IMPRESSION: No acute radiographic abnormalities. Low lung volumes. Electronically Signed: Mac Hunt MD at 19:24 EDT ,
[2023-03-08 18:01] LABS: Absolute Neutrophil Count 12.7 X10^3/uL (2.0-7.7); Basophil# 0.06 X10^3/uL; Basophil% 0.4 % (0-1); Eosinophil# 0.21 X10^3/uL; Eosinophils% 1.3 % (0-5); Hematocrit 40.3 % (40-54); Hemoglobin 12.6 g/dL (13.0-16.5); Lymphocyte % 12.9 % (19-41); Mean Corp Hgb Conc 31.3 g/dL (32-36); Mean Corpuscular Hgb 27.8 pg (27.0-32.0); Mean Platelet Vol. 11.5 fl (6.2-12.0); Monocyte# 1.18 X10^3/uL; Monocyte% 7.2 % (0-10); NRBC Flagged by Analyzer 0 % (0-5); Neutrophil # 12.68 X10^3/uL (2.7-7.7); Neutrophil % 77.6 % (47-70); Platelet Count 225 K/mm3 (150-450); RBC Distribution Width CV 14.6 % (11.6-14.6); RBC Distribution Width SD 46.5 fl (35.1-43.9); Red Blood Count 4.53 M/mm3 (4.6-6.2); White Blood Count 16.3 K/mm3 (4.4-11.0)
[2023-03-08 18:14] LABS: ALB/GLOB Ratio 0.8 RATIO (0.9-2.4); AST(SGOT) 30 U/L (15-37); Alanine Aminotransfer ALT/SGPT 21 U/L (16-61); Albumin, Serum 3.3 g/dL (3.2-5.0); Alkaline Phosphatase 142 U/L (45-117); Anion Gap 4 (5-15); BUN 17 mg/dL (7-18); BUN/Creat Ratio 12.1 RATIO (10-20); Calcium,Total 9.2 mg/dL (8.5-10.1); Chloride 103 mmol/L (98-107); EST Glomerular Filtration Rate 54 mL/min (>60); Est Glom Filt Rate - Afr Amer 66 mL/min (>60); Estimated Creatinine Clearance 55.04 ml/min; Globulin 4.3 g/dL (2.2-4.2); Glucose 109 mg/dL (74-106); Potassium 3.9 mmol/L (3.5-5.1); Protein, Total 7.6 g/dL (6.4-8.2); Sodium Level 139 mmol/L (136-145)
[2023-03-08 18:24] LABS: Color, Urine Yellow (Yellow); Glucose, Dipstick Normal (Normal); Ketone-Dipstick Negative (Negative); Leukocyte Esterase-Dipstick 500 /ul (Negative); Mucous, Urine 0 SEEN /hpf (<or=2+); Nitrite-Dipstick Positive (Negative); Occult Blood-Urine 10 /ul (Negative); Protein-Dipstick 30 mg/dl (Negative); Specific Gravity, Urine 1.015 (1.002-1.030); Squamous Epithelial Cells - UA 0 SEEN /hpf (0-5); Urine Bilirubin Dipstick Negative (Negative); Urine Clarity Sl. Cloudy (Clear); Urine Urobilinogen Normal (Normal)
[2023-03-08 18:25] LABS: Lactic Acid 2.1 mmol/L (0.4-1.9)
[2023-03-08 18:31] LABS: Bacteria 3+ /hpf (None Seen); White Blood Cells 10-25 SEEN /hpf (0-5)
[2023-03-08 18:32] LABS: Red Blood Cells-Urine 0-5 SEEN /hpf (0-5)
[2023-03-08] MEDS: Ceftriaxone 1 GM/50 ML BAG IV (19:13)
[2023-03-08 19:15] VITALS: PULSE 74; O2SAT 100
[2023-03-08 21:47] LABS: Reflex Lactate? Y
== END 2023-03-08 21:40 | disposition home or self-care (01) ==
PROVIDERS: Emergency Provider Emergency Medicine; PCP Internal Medicine; Visit Provider Emergency Medicine
DX: R53.1 Weakness (principal); E11.621 Type 2 diabetes mellitus with foot ulcer; Z93.1 Gastrostomy status; L97.529 Non-pressure chronic ulcer of other part of left foot with unspecified severity; E11.42 Type 2 diabetes mellitus with diabetic polyneuropathy; E11.65 Type 2 diabetes mellitus with hyperglycemia; Z79.4 Long term (current) use of insulin; N39.0 Urinary tract infection, site not specified; I25.10 Atherosclerotic heart disease of native coronary artery without angina pectoris; E86.0 Dehydration; I10 Essential (primary) hypertension; R09.89 Other specified symptoms and signs involving the circulatory and respiratory systems; Z79.82 Long term (current) use of aspirin; Z79.899 Other long term (current) drug therapy; I49.9 Cardiac arrhythmia, unspecified; Z79.02 Long term (current) use of antithrombotics/antiplatelets; F41.8 Other specified anxiety disorders; G47.30 Sleep apnea, unspecified; K21.9 Gastro-esophageal reflux disease without esophagitis; Z95.5 Presence of coronary angioplasty implant and graft
CPT/HCPCS: 71045; 80053; 81001; 83605; 85025; 87040; 87086; 87088; 87186; 87428; 93005; 96365; 96366; 99285; A4216

== ENCOUNTER 2023-03-28 03:50 | Emergency (ER) | payer MEDICARE, MEDICAID, SELFPAY ==
[2023-03-28 03:51] VITALS: BP 152/88; PULSE 74; RESP 16; TEMP 36.2; O2SAT 99; BMI 39.9
[2023-03-28 04:10] VITALS: BP 152/88; PULSE 74; RESP 16; TEMP 36.2; O2SAT 98
--- NOTE | 2023-03-28 04:13 | EDS_ITS ---
HPI History of Present Illness Chief Complaint: Complaint Narrative Narrative: 63-year-old male here with concern for urinary retention. Patient states he last voided at 1700. This was approximately 11 hours prior to arrival. Patient states he has no lower abdominal tenderness or pain. Denies any fever. The does note some blood-tinged urine in the patient's brief. States he was treated for UTI 2 weeks ago. Patient denies any painful urination. Denies any nausea or vomiting or systemic symptoms such as fever or chills. [facility] Medical History Ambulates with cane Amputation of one or more toes Anxiety Anxiety and depression Arrhythmia Arthritis Aspiration into airway Aspiration pneumonia Atherosclerotic heart disease of tetlin coronary artery without angina pectoris Bilateral leg weakness Blind left eye Blister (nonthermal), left foot, initial encounter Bronchiectasis with (acute) exacerbation Cardiology follow-up encounter Chronic cough Chronic respiratory failure with hypoxia COPD (chronic obstructive pulmonary disease) CPAP (continuous positive airway pressure) dependence Debility, unspecified Depression Diabetes Essential hypertension Gastric reflux GERD (gastroesophageal reflux disease) High cholesterol History of aspiration pneumonia History of diabetes mellitus History of echocardiogram History of edema History of gout History of heart attack History of non-ST elevation myocardial infarction (NSTEMI) (08/2016) History of pain when walking History of steroid therapy History of stress test Hyperglycemia due to type 2 diabetes mellitus Hypertension Insulin dependent diabetes mellitus Kidney disease Kidney stones Kidney stones Leg pain, right Leukocytosis Low back pain Memory impairment Migraines Mood disorder Myocardial infarct Non-smoker Noncompliance by declining intervention or support On home oxygen therapy Peripheral vascular occlusive disease Pneumonia Prostate disease Pulmonary nodule, left Recurrent falls Right ankle pain Right foot pain Shortness of breath on exertion Silent aspiration Sleep apnea Tremor Type 2 diabetes mellitus Type 2 diabetes mellitus with diabetic polyneuropathy Ulcer of left foot, limited to breakdown of skin 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 Wears glasses Wound of left lower extremity Home Medications acetaminophen 500 mg tablet 1,000 mg PO QHS PRN PRN Pain 1-10 Or Fever 02/11/21 [History Last Taken 05/14/22 18:50 1000] aspirin 81 mg tablet,delayed release (Adult Aspirin Regimen) 81 mg PO DAILY heart health 11/05/21 [History Last Taken 08/29/22 08:00] spironolactone 25 mg tablet 25 mg PO QHS diuretic 11/08/21 [History Last Taken 08/29/22 22:00] peg [id number] 1 %-0.2 %-0.2 % eye drops (Artificial Tears ([id number])) 2 drp EACH EYE Q1H PRN DRY EYES #0 mL 11/14/21 [Rx Last Taken Unknown] nitroglycerin 0.4 mg sublingual tablet 0.4 mg sublingual Q5M PRN Chest Pain #30 tabs 11/25/21 [Rx Last Taken Unknown] clopidogrel 75 mg tablet 75 mg PO DAILY blood thinner #90 tabs 03/30/22 [Rx Last Taken 08/29/22 08:00] isosorbide mononitrate 30 mg tablet,extended release 24 hr 30 mg PO DAILY heart #90 tabs 03/30/22 [Rx Last Taken 07/01/22] loratadine 10 mg tablet (Allergy Relief (loratadine)) 10 mg PO DAILY allergies 05/21/22 [History Last Taken 08/29/22 08:00] buspirone 7.5 mg tablet 15 mg PO TID mood #90 tabs 07/03/22 [Rx Last Taken 12/30/22] clonazepam 1 mg tablet 1 mg PO BID PRN PRN anxiety #14 tabs 07/03/22 [Rx Last Taken 12/30/22] gauze bandage 4 X 4 (Bordered Gauze) #14 ea 07/03/22 [Rx Last Taken Unknown] nystatin 100,000 unit/gram topical powder (Nyamyc) 1 applic topical BID #0 grams 07/03/22 [Rx Last Taken Unknown] walker (Ultra-Light Rollator misc) #1 ea 07/21/22 [Rx Last Taken Unknown] insulin lispro 100 unit/mL subcutaneous pen sliding scale dose subcut ACHS Check with primary doctor 08/12/22 [History Last Taken Unknown] amlodipine 5 mg tablet 10 mg PO DAILY #0 tabs 08/14/22 [Rx Last Taken 08/29/22 08:00] pantoprazole 40 mg tablet,delayed release 40 mg PO DAILY gerd #90 tabs 12/02/22 [Rx Last Taken Unknown] pen needle, diabetic 33 gauge x 5/16 #200 ea 12/02/22 [Rx Last Taken Unknown] losartan 50 mg tablet 25 mg PO DAILY bp #90 tabs 12/29/22 [Rx Last Taken Unknown] atorvastatin 80 mg tablet 80 mg PO QHS cholesterol #90 tabs 01/11/23 [Rx Last Ta neo Unknown] carvedilol 12.5 mg tablet 25 mg PO BID 3 months #360 tabs 01/11/23 [Rx Last Taken Unknown] finasteride 5 mg tablet 5 mg PO DAILY prostate #90 tabs 01/19/23 [Rx Last Taken Unknown] pregabalin 75 mg capsule (Lyrica) 75 mg PO BID #60 caps 02/09/23 [Rx Last Taken Unknown] albuterol sulfate 90 mcg/actuation aerosol inhaler 2 puff inhalation Q4H PRN shortness of breath or wheezing #8.5 grams 02/26/23 [Rx Last Taken Unknown] furosemide 40 mg tablet 40 mg PO DAILY fluid #90 tabs 03/01/23 [Rx Last Taken Unknown] metoclopramide HCl 5 mg tablet 5 mg PO TID #90 tabs 03/01/23 [Rx Last Taken Un known] hydroxyzine HCl 25 mg tablet 25 mg PO QHS PRN anxiety #30 tabs 03/04/23 [Rx Last Taken Unknown] insulin detemir U-100 100 unit/mL (3 mL) subcutaneous pen (Levemir FlexTouch U- 100 Insulin) 40 unit (0.4 mL) subcut QHS 3 months #36 mL 03/04/23 [Rx Last Taken Unknown] insulin lispro 100 unit/mL subcutaneous pen (Humalog KwikPen (U-100) Insulin) 14 unit (0.14 mL) subcut TIDAC 3 months #37.8 mL 03/04/23 [Rx Last Taken Unknown] fluoxetine 20 mg capsule 60 mg PO DAILY 03/23/23 [History Last Taken Unknown] melatonin 3 mg tablet 4.5 mg PO QHS 03/23/23 [History Last Taken Unknown] Allergy/AdvReac Type Severity Reaction Status Date / Time allopurinol AdvReac Vomiting Verified 03/23/23 13:46 Influenza Virus Vaccines AdvReac Vomiting Verified 03/23/23 13:46 pneumococcal vaccine AdvReac Vomiting Verified 03/23/23 13:46 Family History Mother Diabetes Heart disease CHF Father Heart disease IN/CAD Myocardial infarction Surgical History H/O lithotripsy History of angioplasty of peripheral vessel (2016) History of angioplasty of peripheral vessel History of ankle surgery History of cardiac catheterization History of coronary artery stent placement (08/2016) History of coronary artery stent placement History of esophagogastroduodenoscopy (EGD) History of left heart catheterization (11/15/17) History of thyroid surgery Hx of lithotripsy Hx of surgery to heart and great vessels, presenting hazards to health Hx of surgical procedure Hx of thyroidectomy Hx of toe surgery Hx of toe surgery PEG (percutaneous endoscopic gastrostomy) status Social History household members: spouse housing: apartment Smoking Status: Never smoker alcohol intake: never substance use type: does not use ROS ROS ED ROS Narrative Constitutional: Denies fever HEENT: Denies sore throat Neck: Denies neck pain Cardiovascular: Denies chest pain, syncope Respiratory: Denies shortness of breath GI: Denies nausea vomiting or abdominal pain : Endorses concern for urinary retention Musculoskeletal: Denies muscle or joint pain Neurologic: Denies numbness weakness or loss of sensation Skin denies rash EXAM Physical Exam Narrative Exam Narrative: Nursing triage notes reviewed, Vital signs reviewed Constitutional: please see mdm HENT: MMM Eyes: Pupils equal round and reactive to light, Extraocular muscles intact Neck: No stridor, no JVD, full neck ROM Lungs: Clear to auscultation, No wheezing or rales. No increased work of breathing, no conversational dyspnea, no accessory muscle use, no nasal flaring. No respiratory distress noted Heart: Regular rate and rhythm, No murmurs, No rubs and No gallops, 2+ distal pulses (radial, femoral, posterior tibial) in all extremities Abdomen: Soft, there is no tenderness, rigidity, rebound or guarding, no obvious peritoneal signs, no palpable pulsatile abdominal masses, no auscultated abdominal bruit : No CVAT, no blood at the urethral meatus, no testicular tenderness, normal testicular lie, intact hemostatic reflex. Intertriginous changes in bilateral groin folds which are indicative of tinea cruris. Extremities: No edema Neuro: No focal neurological deficits, cranial nerves II through XII intact, 5/5 strength in all extremities. Intact sensation to light touch in all extremities, 2+ reflexes bilateral patella dens. Normal gait. No ataxia. Skin: No rash or lesions noted Const Vital Signs: 03/28/23 03:51 03/28/23 04:10 Temperature 97.1 F L 97.2 F L Temperature Source Temporal Temporal Pulse Rate 74 74 Respiratory Rate 16 16 Blood Pressure 152/88 H 152/88 H Blood Pressure Mean 109 109 Pulse Ox 99 98 Oxygen Delivery Method Nasal Cannula Room Air Oxygen Flow Rate (L/min) 4 MDM MDM MDM Narrative Medical decision making narrative: Chief Complaint: Urinary retention External records reviewed: No urologic records noted in the chart or Care Everywhere MDM: I considered the following differential diagnosis: Urinary retention, renal failure Primary concern for urinary retention however patient appeared to void in route to the emergency department. Bladder scan showed approximately 11 cc of urine. This is not consistent with urinary retension. Furthermore the patient's physical exam was not consistent with a distended bladder and no lower abdominal fullness tenderness palpation or sensation that he needs to void. No clear etiology of patient's complaints I suspect the patient has been voiding this entire period however was unnoticed by the patient's caregiver. Discussed return precautions and follow-up instructions with urology. Patient and caregiver agreed. Factors affecting care: Urinary incontinence Social determinants of health: Poor health literacy History obtained from others: The patient's Shared decision making: I will have a discussion with the patient and or visitors regarding risk/benefits of further testing or admission. They will be made aware of of the risk/benefits inherent in this decision they will be given the opportunity to voice understanding. Consults: None Discharge Plan Triage Chief Complaint: Complaint ED Provider: Rneo Clark Dx/Rx/DC Orders Prescriptions: No Action aspirin [Adult Aspirin Regimen] 81 mg tablet,delayed release (DR/EC) 81 mg PO DAILY loratadine [Allergy Relief (loratadine)] 10 mg tablet 10 mg PO DAILY (DME) Ultra-Light Rollator Misc See Rx Instructions .Route Qty: 1 2RF Rx Instructions: As directed albuterol sulfate 90 mcg/actuation HFA aerosol inhaler 2 puff inhalation Q4H PRN (Reason: shortness of breath or wheezing) Qty: 8.5 3RF Rx Instructions: administer with spacer (DME) pen needle, diabetic 33 gauge x 5/16 needle See Rx Instructions .Route Qty: 200 3RF Rx Instructions: As directed pantoprazole 40 mg tablet,delayed release (DR/EC) 40 mg PO DAILY Qty: 90 3RF melatonin 3 mg tablet 4.5 mg PO QHS Label Comments: TAKE 1 TABLET BY MOUTH ONCE DAILY AT BEDTIME hydroxyzine HCl 25 mg tablet 25 mg PO QHS PRN (Reason: anxiety) Qty: 30 3RF insulin lispro [Humalog KwikPen Insulin] 100 unit/mL insulin pen 14 unit subcut TIDAC 90 Days Qty: 37.8 2RF Levemir FlexTouch U-100 Insuln 100 unit/mL (3 mL) insulin pen 40 unit subcut QHS 90 Days Qty: 36 3RF fluoxetine 20 mg capsule 60 mg PO DAILY acetaminophen 500 MG tablet 1,000 mg PO QHS PRN PRN (Reason: Pain 1-10 Or Fever) spironolactone 25 mg tablet 25 mg PO QHS Artificial Tears([id number]) 1-0.2-0.2 % Drops 2 drp EACH EYE Q1H PRN (Reason: DRY EYES) Qty: 0 0RF clonazepam 1 mg Tablet 1 mg PO BID PRN PRN (Reason: anxiety) Qty: 14 0RF nystatin [Nyamyc] 100,000 unit/gram Powder 1 applic topical BID Qty: 0 0RF Protocol: *Topical Application Instructions APPLICATION INSTRUCTIONS: to groin buspirone 7.5 mg tablet 15 mg PO TID Qty: 90 2RF (DME) gauze bandage [Bordered Gauze] 4 X 4 bandage See Rx Instructions .ROUTE .MEDSUPPLY Qty: 14 2RF Rx Instructions: Daily cleanse left foot wound with soap and water, dry and apply Betadine solution and apply clean dressing insulin lispro 100 unit/mL insulin pen subcut ACHS Label Comments: INJECT subcuaneously 8-16 units 5 (FIVE) times daily per sliding scale.] amlodipine 5 mg Tablet 10 mg PO DAILY Qty: 0 0RF nitroglycerin 0.4 mg tablet, sublingual 0.4 mg SL Q5M PRN (Reason: Chest Pain) Qty: 30 0RF clopidogrel 75 mg tablet 75 mg PO DAILY Qty: 90 3RF isosorbide mononitrate 30 mg tablet extended release 24 hr 30 mg PO DAILY Qty: 90 3RF losartan 50 mg tablet 25 mg PO DAILY Qty: 90 1RF atorvastatin 80 mg tablet 80 mg PO QHS Qty: 90 2RF carvedilol 12.5 mg tablet 25 mg PO BID 90 Days Qty: 360 2RF finasteride 5 mg tablet 5 mg PO DAILY Qty: 90 3RF pregabalin [Lyrica] 75 mg capsule 75 mg PO BID Qty: 60 0RF furosemide 40 mg tablet 40 mg PO DAILY Qty: 90 3RF metoclopramide HCl 5 mg tablet 5 mg PO TID Qty: 90 11RF Primary Care Provider: Doretha Brown Referrals: Doretha Bronw MD [Primary Care Provider] -
[2023-03-28 04:50] VITALS: BP 148/71; PULSE 62; RESP 17; O2SAT 99
== END 2023-03-28 04:50 | disposition home or self-care (01) ==
PROVIDERS: Emergency Provider Emergency Medicine; PCP Internal Medicine; Visit Provider Emergency Medicine
DX: R33.9 Retention of urine, unspecified (principal); Z93.1 Gastrostomy status; J44.9 Chronic obstructive pulmonary disease, unspecified; E11.42 Type 2 diabetes mellitus with diabetic polyneuropathy; E11.65 Type 2 diabetes mellitus with hyperglycemia; Z79.4 Long term (current) use of insulin; I25.10 Atherosclerotic heart disease of native coronary artery without angina pectoris; I10 Essential (primary) hypertension; E78.00 Pure hypercholesterolemia, unspecified; Z99.89 Dependence on other enabling machines and devices; Z79.82 Long term (current) use of aspirin; Z79.02 Long term (current) use of antithrombotics/antiplatelets; I25.2 Old myocardial infarction; F41.8 Other specified anxiety disorders; Z79.899 Other long term (current) drug therapy; K21.9 Gastro-esophageal reflux disease without esophagitis; N42.9 Disorder of prostate, unspecified; R09.02 Hypoxemia; Z95.5 Presence of coronary angioplasty implant and graft
CPT/HCPCS: 99282

== ENCOUNTER 2023-03-29 15:22 | Emergency (ER) | payer MEDICARE, MEDICAID, SELFPAY ==
[2023-03-29 15:23] VITALS: BP 140/82; PULSE 73; RESP 16; TEMP 35.8; O2SAT 96
--- NOTE | 2023-03-29 15:36 | EX.ED.GUMALE ---
HPI History of Present Illness Chief Complaint: Complaint Narrative Narrative: 63-year-old male past medical history of urinary incontinence, chronic respiratory failure, diabetes, coronary artery disease, COPD presents with dysuria. They state that they were seen in the emergency department yesterday because he had urinary retention. However, prior to arrival he was able to urinate. He has only gone a small amount today. His states that when he did urinate in the urinal, it was a small amount and it was dark. They deny that he has had fever or chills, no nausea or vomiting. They called his primary care provider who cannot see him for 2 days, so she thought that this was too long to wait for evaluation of his decreased urination, and dark urine. [facility] Medical History Ambulates with cane Amputation of one or more toes Anxiety Anxiety and depression Arrhythmia Arthritis Aspiration into airway Aspiration pneumonia Atherosclerotic heart disease of [place] coronary artery without angina pectoris Bilateral leg weakness Blind left eye Blister (nonthermal), left foot, initial encounter Bronchiectasis with (acute) exacerbation Cardiology follow-up encounter Chronic cough Chronic respiratory failure with hypoxia COPD (chronic obstructive pulmonary disease) CPAP (continuous positive airway pressure) dependence Debility, unspecified Depression Diabetes Essential hypertension Gastric reflux GERD (gastroesophageal reflux disease) High cholesterol History of aspiration pneumonia History of diabetes mellitus History of echocardiogram History of edema History of gout History of heart attack History of non-ST elevation myocardial infarction (NSTEMI) (08/2016) History of pain when walking History of steroid therapy History of stress test Hyperglycemia due to type 2 diabetes mellitus Hypertension Insulin dependent diabetes mellitus Kidney disease Kidney stones Kidney stones Leg pain, right Leukocytosis Low back pain Memory impairment Migraines Mood disorder Myocardial infarct Non-smoker Noncompliance by declining intervention or support On home oxygen therapy Peripheral vascular occlusive disease Pneumonia Prostate disease Pulmonary nodule, left Recurrent falls Right ankle pain Right foot pain Shortness of breath on exertion Silent aspiration Sleep apnea Tremor Type 2 diabetes mellitus Type 2 diabetes mellitus with diabetic polyneuropathy Ulcer of left foot, limited to breakdown of skin 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 Wears glasses Wound of left lower extremity Home Medications acetaminophen 500 mg tablet 1,000 mg PO QHS PRN PRN Pain 1-10 Or Fever 02/11/21 [History Last Taken 05/14/22 18:50 1000] aspirin 81 mg tablet,delayed release (Adult Aspirin Regimen) 81 mg PO DAILY heart health 11/05/21 [History Last Taken 08/29/22 08:00] spironolactone 25 mg tablet 25 mg PO QHS diuretic 11/08/21 [History Last Taken 08/29/22 22:00] peg [id number] 1 %-0.2 %-0.2 % eye drops (Artificial Tears ([id number])) 2 drp EACH EYE Q1H PRN DRY EYES #0 mL 11/14/21 [Rx Last Taken Unknown] nitroglycerin 0.4 mg sublingual tablet 0.4 mg sublingual Q5M PRN Chest Pain #30 tabs 11/25/21 [Rx Last Taken Unknown] clopidogrel 75 mg tablet 75 mg PO DAILY blood thinner #90 tabs 03/30/22 [Rx Last Taken 08/29/22 08:00] isosorbide mononitrate 30 mg tablet,extended release 24 hr 30 mg PO DAILY heart #90 tabs 03/30/22 [Rx Last Taken 07/01/22] loratadine 10 mg tablet (Allergy Relief (loratadine)) 10 mg PO DAILY allergies 05/21/22 [History Last Taken 08/29/22 08:00] buspirone 7.5 mg tablet 15 mg PO TID mood #90 tabs 07/03/22 [Rx Last Taken 12/30/22] clonazepam 1 mg tablet 1 mg PO BID PRN PRN anxiety #14 tabs 07/03/22 [Rx Last Taken 12/30/22] gauze bandage 4 X 4 (Bordered Gauze) #14 ea 07/03/22 [Rx Last Taken Unknown] nystatin 100,000 unit/gram topical powder (Nyamyc) 1 applic topical BID #0 grams 07/03/22 [Rx Last Taken Unknown] walker (Ultra-Light Rollator misc) #1 ea 07/21/22 [Rx Last Taken Unknown] insulin lispro 100 unit/mL subcutaneous pen sliding scale dose subcut ACHS Check with primary doctor 08/12/22 [History Last Taken Unknown] amlodipine 5 mg tablet 10 mg PO DAILY #0 tabs 08/14/22 [Rx Last Taken 08/29/22 08:00] pantoprazole 40 mg tablet,delayed release 40 mg PO DAILY gerd #90 tabs 12/02/22 [Rx Last Taken Unknown] pen needle, diabetic 33 gauge x 04/13 #200 ea 12/02/22 [Rx Last Taken Unknown] losartan 50 mg tablet 25 mg PO DAILY bp #90 tabs 12/29/22 [Rx Last Taken Unknown] atorvastatin 80 mg tablet 80 mg PO QHS cholesterol #90 tabs 01/11/23 [Rx Last Taken Unknown] carvedilol 12.5 mg tablet 25 mg PO BID 3 months #360 tabs 01/11/23 [Rx Last Taken Unknown] finasteride 5 mg tablet 5 mg PO DAILY prostate #90 tabs 01/19/23 [Rx Last Taken Unknown] pregabalin 75 mg capsule (Lyrica) 75 mg PO BID #60 caps 02/09/23 [Rx Last Taken Unknown] albuterol sulfate 90 mcg/actuation aerosol inhaler 2 puff inhalation Q4H PRN shortness of breath or wheezing #8.5 grams 02/26/23 [Rx Last Taken Unknown] furosemide 40 mg tablet 40 mg PO DAILY fluid #90 tabs 03/01/23 [Rx Last Taken Unknown] metoclopramide HCl 5 mg tablet 5 mg PO TID #90 tabs 03/01/23 [Rx Last Taken Unknown] hydroxyzine HCl 25 mg tablet 25 mg PO QHS PRN anxiety #30 tabs 03/04/23 [Rx Last Taken Unknown] insulin detemir U-100 100 unit/mL (3 mL) subcutaneous pen (Levemir FlexTouch U-100 Insulin) 40 unit (0.4 mL) subcut QHS 3 months #36 mL 03/04/23 [Rx Last Taken Unknown] insulin lispro 100 unit/mL subcutaneous pen (Humalog KwikPen (U-100) Insulin) 14 unit (0.14 mL) subcut TIDAC 3 months #37.8 mL 03/04/23 [Rx Last Taken Unknown] fluoxetine 20 mg capsule 60 mg PO DAILY 03/23/23 [History Last Taken Unknown] melatonin 3 mg tablet 4.5 mg PO QHS 03/23/23 [History Last Taken Unknown] Allergy/AdvReac Type Severity Reaction Status Date / Time allopurinol AdvReac Vomiting Verified 03/29/23 15:23 Influenza Virus Vaccines AdvReac Vomiting Verified 03/29/23 15:23 pneumococcal vaccine AdvReac Vomiting Verified 03/29/23 15:23 Family History Mother Diabetes Heart disease CHF Father Heart disease IA/CAD Myocardial infarction Surgical History H/O lithotripsy History of angioplasty of peripheral vessel (2016) History of angioplasty of peripheral vessel History of ankle surgery History of cardiac catheterization History of coronary artery stent placement (08/2016) History of coronary artery stent placement History of esophagogastroduodenoscopy (EGD) History of left heart catheterization (11/15/17) History of thyroid surgery Hx of lithotripsy Hx of surgery to heart and great vessels, presenting hazards to health Hx of surgical procedure Hx of thyroidectomy Hx of toe surgery Hx of toe surgery PEG (percutaneous endoscopic gastrostomy) status Social History household members: spouse housing: apartment Smoking Status: Never smoker alcohol intake: never substance use type: does not use EXAM Physical Exam Narrative Exam Narrative: Afebrile. Vital signs noted. HEENT: Normocephalic. Atraumatic. PERRL, EOMI. Neck soft and supple. No point tenderness or step off. Cardiovascular: Regular rate and rhythm. No murmurs, rubs, or gallops appreciated. Respiratory: No tachypnea. Lungs clear to auscultation bilaterally. Gastrointestinal: Abdomen soft, nontender, with normoactive bowel sounds. No rebound or guarding. Neurological: Awake. Alert. Nonfocal, nonlateralizing. Skin: No rash. Normal color. No pallor. Musculoskeletal: No pedal edema. Full range of motion extremities. Const Vital Signs: 03/29/23 15:23 Temperature 96.5 F L Temperature Source Temporal Pulse Rate 73 Respiratory Rate 16 Blood Pressure 140/82 H Blood Pressure Mean 101 Pulse Ox 96 Oxygen Delivery Method Nasal Cannula Oxygen Flow Rate (L/min) 4 MDM MDM MDM Narrative Medical decision making narrative: I reviewed the patient's prior ED visit from yesterday morning. He had urinated prior to arrival, and it was thought that he was having more urinary retention. Bladder scan only showed 11 mL of urine. Given that he has returned with the same complaint, and worsening, comprehensive work-up was pursued. I will obtain a BMP to see if he is dehydrated and not producing more urine and to check his creatinine. CBC was also obtained. He will be bolused normal saline 1 L intravenously and urine sample obtained and sent for analysis. Additionally, given his complicated medical histories, CT imaging will also be obtained as his states that he has a history of kidney stones. I reviewed the patient's laboratory work, he has a mild leukocytosis but this is nonspecific and it has been elevated in the past, hemoglobin stable at 12.6 with hematocrit 39.5. Platelet count normal at 219. He has a creatinine of 1.33 today, it has been chronically elevated, BUN of 15. I do not feel he is dehydrated. Glucose 181 consistent with his diabetes but he has a normal anion gap of 5 so I do not feel he is in a diabetic ketoacidosis. I reviewed his CT and the report and there is a 7 mm UPJ stone that is nonobstructing, there is no hydronephrosis. At this point in time, his 's concern was that he was not making urine, or that he was in urinary retention. He has produced a large amount. I reviewed the urinalysis and there are 0-5 WBCs and 0 bacteria. I do not feel that he can be discharged to follow-up with urology regarding this 7 mm nonobstructing stone at the left UPJ. I do not feel antibiotics are indicated. I do not feel that he requires observation. Return instructions to the emergency department were reviewed. Disposition is discharged home in stable condition. History & Record Review Discussion w/independent historian: Patient and Family Additional record(s) reviewed:: Prior ED visit Lab Data Attestation: I reviewed the patient's lab results. Labs: Laboratory Results - last 24 hr 03/29/23 03/29/23 03/29/23 16:00 16:00 16:36 WBC 14.7 H RBC 4.60 Hgb 12.6 L Hct 39.5 L MCV 85.9 MCH 27.4 MCHC 31.9 L RDW Std Deviation 45.7 H RDW Coeff of James 14.6 Plt Count 219 MPV 10.7 Immature Gran % (Auto) 0.400 Neut % (Auto) 79.4 H Lymph % (Auto) 11.6 L [place] % (Auto) 7.7 Eos % (Auto) 0.6 Baso % (Auto) 0.3 Absolute Neuts (auto) 11.7 H Absolute Lymphs (auto) 1.71 Nucleated RBC % 0 Sodium 138 Potassium 4.7 Chloride 104 Carbon Dioxide 29.0 Anion Gap 5 BUN 15 Creatinine 1.33 H Estim Creat Clear Calc 57.94 Est GFR (MDRD) Af Amer 70 Est GFR (MDRD) Non-Af 58 L BUN/Creatinine Ratio 11.3 Glucose 181 H Calcium 9.2 Urine Color Yellow Urine Clarity Clear Urine pH 7.0 Ur Specific [place] 1.010 Urine Protein 30 H Urine Glucose (UA) Normal Urine Ketones Negative Urine Occult Blood 250 H Urine Nitrite Negative Urine Bilirubin Negative Urine Urobilinogen Normal Ur Leukocyte Esterase 100 H Urine RBC 10-25 SEEN Urine WBC 0-5 SEEN Ur Squamous Epith Cells 0 SEEN Urine Bacteria 0 SEEN Urine Mucus 0 SEEN Radiography Diagnostic Testing: Clinical Impression(s) from Imaging Studies Abdomen/Pelvis CT 03/29/23 16:15 IMPRESSION: 1. Nonobstructive 7 mm stone at the left UP junction. 2. Additional nonacute findings described above. Electronically Signed: Naga Gallardo MD at 16:49 EDT , Discharge Plan Triage Chief Complaint: Complaint ED Provider: Rolo Gilman Dx/Rx/DC Orders Clinical Impression: Debility, unspecified, Dysuria, Ureteral calculus, left, Decreased urination Prescriptions: No Action aspirin [Adult Aspirin Regimen] 81 mg tablet,delayed release (DR/EC) 81 mg PO DAILY loratadine [Allergy Relief (loratadine)] 10 mg tablet 10 mg PO DAILY (DME) Ultra-Light Rollator Misc See Rx Instructions .Route Qty: 1 2RF Rx Instructions: As directed albuterol sulfate 90 mcg/actuation HFA aerosol inhaler 2 puff inhalation Q4H PRN (Reason: shortness of breath or wheezing) Qty: 8.5 3RF Rx Instructions: administer with spacer (DME) pen needle, diabetic 33 gauge x 5/16 needle See Rx Instructions .Route Qty: 200 3RF Rx Instructions: As directed pantoprazole 40 mg tablet,delayed release (DR/EC) 40 mg PO DAILY Qty: 90 3RF melatonin 3 mg tablet 4.5 mg PO QHS Label Comments: TAKE 1 TABLET BY MOUTH ONCE DAILY AT BEDTIME hydroxyzine HCl 25 mg tablet 25 mg PO QHS PRN (Reason: anxiety) Qty: 30 3RF insulin lispro [Humalog KwikPen Insulin] 100 unit/mL insulin pen 14 unit subcut TIDAC 90 Days Qty: 37.8 2RF Levemir FlexTouch U-100 Insuln 100 unit/mL (3 mL) insulin pen 40 unit subcut QHS 90 Days Qty: 36 3RF fluoxetine 20 mg capsule 60 mg PO DAILY acetaminophen 500 MG tablet 1,000 mg PO QHS PRN PRN (Reason: Pain 1-10 Or Fever) spironolactone 25 mg tablet 25 mg PO QHS Artificial Tears([id number]) 1-0.2-0.2 % Drops 2 drp EACH EYE Q1H PRN (Reason: DRY EYES) Qty: 0 0RF clonazepam 1 mg Tablet 1 mg PO BID PRN PRN (Reason: anxiety) Qty: 14 0RF nystatin [Nyamyc] 100,000 unit/gram Powder 1 applic topical BID Qty: 0 0RF Protocol: *Topical Application Instructions APPLICATION INSTRUCTIONS: to groin buspirone 7.5 mg tablet 15 mg PO TID Qty: 90 2RF (DME) gauze bandage [Bordered Gauze] 4 X 4 bandage See Rx Instructions .ROUTE .MEDSUPPLY Qty: 14 2RF Rx Instructions: Daily cleanse left foot wound with soap and water, dry and apply Betadine solution and apply clean dressing insulin lispro 100 unit/mL insulin pen subcut ACHS Label Comments: INJECT subcuaneously 8-16 units 5 (FIVE) times daily per sliding scale.] amlodipine 5 mg Tablet 10 mg PO DAILY Qty: 0 0RF nitroglycerin 0.4 mg tablet, sublingual 0.4 mg SL Q5M PRN (Reason: Chest Pain) Qty: 30 0RF clopidogrel 75 mg tablet 75 mg PO DAILY Qty: 90 3RF isosorbide mononitrate 30 mg tablet extended release 24 hr 30 mg PO DAILY Qty: 90 3RF losartan 50 mg tablet 25 mg PO DAILY Qty: 90 1RF atorvastatin 80 mg tablet 80 mg PO QHS Qty: 90 2RF carvedilol 12.5 mg tablet 25 mg PO BID 90 Days Qty: 360 2RF finasteride 5 mg tablet 5 mg PO DAILY Qty: 90 3RF pregabalin [Lyrica] 75 mg capsule 75 mg PO BID Qty: 60 0RF furosemide 40 mg tablet 40 mg PO DAILY Qty: 90 3RF metoclopramide HCl 5 mg tablet 5 mg PO TID Qty: 90 11RF Primary Care Provider: Doretha Brown Referrals: Doretha Brown MD [Primary Care Provider] - 2 Days Sandoval Epstein MD [Med Staff - Active Staff] - 1 Week Disposition Disposition: Home, Self Care
[2023-03-29] MEDS: 0.9% Normal Saline 1,000 ML 1000 ML IV (15:58)
[2023-03-29] MEDS: Morphine 4 MG/ML Syringe IV (15:59)
[2023-03-29] MEDS: Ondansetron 4 MG/2 ML Vial IV (15:59)
[2023-03-29 16:10] LABS: Absolute Lymphocyte Count 1.71 X10^3/uL (0.83-4.51); Absolute Neutrophil Count 11.7 X10^3/uL (2.0-7.7); Basophil# 0.05 X10^3/uL; Basophil% 0.3 % (0-1); Eosinophil# 0.09 X10^3/uL; Eosinophils% 0.6 % (0-5); Hematocrit 39.5 % (40-54); Hemoglobin 12.6 g/dL (13.0-16.5); Lymphocyte # 1.71 X10^3/ul (0.83-4.51); Lymphocyte % 11.6 % (19-41); Mean Corp Hgb Conc 31.9 g/dL (32-36); Mean Corpuscular Hgb 27.4 pg (27.0-32.0); Mean Corpuscular Volume 85.9 fL (80-94); Mean Platelet Vol. 10.7 fl (6.2-12.0); Monocyte# 1.13 X10^3/uL; Monocyte% 7.7 % (0-10); NRBC Flagged by Analyzer 0 % (0-5); Neutrophil # 11.65 X10^3/uL (2.7-7.7); Neutrophil % 79.4 % (47-70); Platelet Count 219 K/mm3 (150-450); RBC Distribution Width CV 14.6 % (11.6-14.6); RBC Distribution Width SD 45.7 fl (35.1-43.9); White Blood Count 14.7 K/mm3 (4.4-11.0)
--- NOTE | 2023-03-29 16:15 | CT_ITS ---
EXAM: CT ABDOMEN AND PELVIS WITHOUT INTRAVENOUS CONTRAST CLINICAL INDICATION: Pain TECHNIQUE: Helically acquired images were obtained of the abdomen and pelvis without intravenous contrast. This CT exam was performed using one or more of the following dose reduction techniques: automated exposure control, adjustment of the mA and/or kV according to patient size, and/or use of iterative reconstruction technique. COMPARISON: No relevant prior studies available. FINDINGS: LOWER THORAX: Atelectatic changes of the right lower lobe. Prominence of the left side of the heart. Dense coronary artery calcification. ABDOMEN: LIVER: Normal. Homogeneous. PANCREAS: Normal. No focal cystic mass. SPLEEN: Normal. Normal size without focal cystic or solid mass. ADRENALS: Normal. No nodules. KIDNEYS AND URETERS: 7 mm stone noted at the left ureteropelvic junction without hydronephrosis. 3 mm stone noted within the lower pole of the left kidney. 17 mm low-density lesion within the upper pole left kidney suggestive of a cyst. STOMACH AND BOWEL: Small fat-containing indirect right inguinal hernia noted as well as a smaller direct left inguinal hernia containing 15 mm of the sigmoid colon. PELVIS: APPENDIX: Appendix is visualized and normal in appearance. BLADDER: Questionable wall thickening of the urinary bladder. REPRODUCTIVE: Prostate gland is mildly enlarged. ABDOMEN and PELVIS: INTRAPERITONEAL SPACE: Normal. No ascites or other fluid collection. No free air. BONES/JOINTS: No suspicious lytic or blastic abnormality. SOFT TISSUES: See above. VASCULATURE: See above. LYMPH NODES: Normal. No enlarged lymph nodes. OTHER FINDINGS: Elevation of the right hemidiaphragm again noted. CT/Abdomen/Pelvis without Cont IMPRESSION: 1. Nonobstructive 7 mm stone at the left UP junction. 2. Additional nonacute findings described above. Electronically Signed: Naga Gallardo MD at 16:49 EDT ,
[2023-03-29 16:22] VITALS: BMI 37.3
[2023-03-29 16:43] LABS: Bacteria 0 SEEN /hpf (None Seen); Mucous, Urine 0 SEEN /hpf (<or=2+); Squamous Epithelial Cells - UA 0 SEEN /hpf (0-5)
[2023-03-29 16:50] LABS: Anion Gap 5 (5-15); BUN 15 mg/dL (7-18); BUN/Creat Ratio 11.3 RATIO (10-20); Calcium,Total 9.2 mg/dL (8.5-10.1); Chloride 104 mmol/L (98-107); Creatinine, Serum 1.33 mg/dL (0.70-1.30); EST Glomerular Filtration Rate 58 mL/min (>60); Est Glom Filt Rate - Afr Amer 70 mL/min (>60); Estimated Creatinine Clearance 57.94 ml/min; Glucose 181 mg/dL (74-106); Potassium 4.7 mmol/L (3.5-5.1); Sodium Level 138 mmol/L (136-145)
[2023-03-29 16:56] LABS: Color, Urine Yellow (Yellow); Glucose, Dipstick Normal (Normal); Ketone-Dipstick Negative (Negative); Leukocyte Esterase-Dipstick 100 /ul (Negative); Nitrite-Dipstick Negative (Negative); Occult Blood-Urine 250 /ul (Negative); Protein-Dipstick 30 mg/dl (Negative); Urine Bilirubin Dipstick Negative (Negative); Urine Clarity Clear (Clear); Urine Urobilinogen Normal (Normal)
[2023-03-29 17:02] LABS: Red Blood Cells-Urine 10-25 SEEN /hpf (0-5); White Blood Cells 0-5 SEEN /hpf (0-5)
[2023-03-29 17:24] VITALS: BP 126/107; PULSE 64; RESP 16; O2SAT 99
== END 2023-03-29 17:26 | disposition home or self-care (01) ==
PROVIDERS: Emergency Provider Emergency Medicine; PCP Internal Medicine; Visit Provider Emergency Medicine
DX: R53.81 Other malaise (principal); Z93.1 Gastrostomy status; J44.9 Chronic obstructive pulmonary disease, unspecified; E11.42 Type 2 diabetes mellitus with diabetic polyneuropathy; E11.65 Type 2 diabetes mellitus with hyperglycemia; Z79.4 Long term (current) use of insulin; E78.00 Pure hypercholesterolemia, unspecified; R30.0 Dysuria; I10 Essential (primary) hypertension; N20.1 Calculus of ureter; R33.9 Retention of urine, unspecified; I25.10 Atherosclerotic heart disease of native coronary artery without angina pectoris; R39.12 Poor urinary stream; Z99.89 Dependence on other enabling machines and devices; Z79.899 Other long term (current) drug therapy; Z79.02 Long term (current) use of antithrombotics/antiplatelets; F41.8 Other specified anxiety disorders; K21.9 Gastro-esophageal reflux disease without esophagitis; N42.9 Disorder of prostate, unspecified; Z95.5 Presence of coronary angioplasty implant and graft
CPT/HCPCS: 51798; 51702; 74176; 80048; 81001; 85025; 96361; 96374; 96375; 99283; J7030; A4216; J2405

== ENCOUNTER → 2023-04-01 | Outpatient (CLI) | payer MEDICARE, MEDICAID, SELFPAY ==
[2023-04-01 09:21] LABS: Mucous, Urine 0 SEEN /hpf (<or=2+); Red Blood Cells-Urine 0 SEEN /hpf (0-5)
[2023-04-01 12:16] LABS: Color, Urine Yellow (Yellow); Glucose, Dipstick Normal (Normal); Ketone-Dipstick Negative (Negative); Leukocyte Esterase-Dipstick 500 /ul (Negative); Nitrite-Dipstick Positive (Negative); Occult Blood-Urine 250 /ul (Negative); Protein-Dipstick 100 mg/dl (Negative); Specific Gravity, Urine 1.015 (1.002-1.030); Urine Bilirubin Dipstick Negative (Negative); Urine Clarity Sl. Cloudy (Clear); Urine Urobilinogen Normal (Normal)
[2023-04-01 12:22] LABS: Bacteria 2+ /hpf (None Seen); Squamous Epithelial Cells - UA 0-5 SEEN /hpf (0-5); White Blood Cells >100 SEEN /hpf (0-5)
== END | disposition home or self-care (01) ==
LOC: LABSPEC 09:20
PROVIDERS: PCP Internal Medicine; Referring Provider Nurse Practitioner Family; Visit Provider Nurse Practitioner Family
DX: R41.3 Other amnesia (principal); R30.0 Dysuria
CPT/HCPCS: 81001; 87086; 87088; 87186

== ENCOUNTER → 2023-05-13 | Outpatient (CLI) | payer MEDICARE, MEDICAID, SELFPAY | END | disposition home or self-care (01) | PROVIDERS: PCP Internal Medicine; Visit Provider Podiatrist | DX: L97.529 Non-pressure chronic ulcer of other part of left foot with unspecified severity (principal) | CPT/HCPCS: 87070; 87075; 87077; 87186; 87205 ==

== ENCOUNTER 2023-05-25 09:01 | Inpatient (IN) | payer MEDICARE, MEDICAID, SELFPAY ==
[2023-05-25] VITALS (7 sets, daily range): BP systolic 156–190; BP diastolic 66–86; PULSE 48–60; RESP 16–22; TEMP 36.1–36.7; O2SAT 97–100; BMI 41.1; BMI 39.9
--- NOTE | 2023-05-25 09:22 | ED.VIS.BACK ---
HPI History of Present Illness Chief Complaint: Back Informant: patient and EMS Narrative Narrative: Brought in by EMS from home increasing lower back spasms. Denies trauma. Awakened with symptoms 2 days ago. States difficulty walking. He does have a cane and walker at home. He has had similar symptoms in the past. He states he is in ED treated with muscle relaxers and sent home. He is diabetic, chronic kidney disease, home oxygen due to COPD. He lives with a significant other. Denies urinary symptoms. Denies any loss of bowel or bladder control. Patient is diabetic, during evaluation noted postop shoe on his left foot states he is dealing with foot ulcer and sees wound care. Denies fevers. Prior similar symptoms: Yes and With Prior Back Pain [facility] Medical History Ambulates with cane Amputation of one or more toes Anxiety Anxiety and depression Arrhythmia Arthritis Aspiration into airway Aspiration pneumonia Atherosclerotic heart disease of [place] coronary artery without angina pectoris Bilateral leg weakness Blind left eye Blister (nonthermal), left foot, initial encounter Bronchiectasis with (acute) exacerbation Cardiology follow-up encounter Chronic cough Chronic respiratory failure with hypoxia COPD (chronic obstructive pulmonary disease) CPAP (continuous positive airway pressure) dependence Debility, unspecified Depression Diabetes Essential hypertension Gastric reflux GERD (gastroesophageal reflux disease) High cholesterol History of aspiration pneumonia History of diabetes mellitus History of echocardiogram History of edema History of gout History of heart attack History of non-ST elevation myocardial infarction (NSTEMI) (08/2016) History of pain when walking History of steroid therapy History of stress test Hyperglycemia due to type 2 diabetes mellitus Hypertension Insulin dependent diabetes mellitus Kidney disease Kidney stones Kidney stones Leg pain, right Leukocytosis Low back pain Memory impairment Migraines Mood disorder Myocardial infarct Non-smoker Noncompliance by declining intervention or support On home oxygen therapy Peripheral vascular occlusive disease Pneumonia Prostate disease Pulmonary nodule, left Recurrent falls Right ankle pain Right foot pain Shortness of breath on exertion Silent aspiration Sleep apnea Tremor Type 2 diabetes mellitus Type 2 diabetes mellitus with diabetic polyneuropathy Ulcer of left foot, limited to breakdown of skin 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 Wears glasses Wound of left lower extremity Home Medications acetaminophen 500 mg tablet 1,000 mg PO QHS PRN PAIN 02/11/21 [History Last Taken 05/24/23] aspirin 81 mg tablet,delayed release (Adult Aspirin Regimen) 81 mg PO DAILY HEART HEALTH 11/05/21 [History Last Taken 05/24/23] spironolactone 25 mg tablet 25 mg PO QHS FLUID 11/08/21 [History Last Taken 08/29/22 22:00] peg [id number] 1 %-0.2 %-0.2 % eye drops (Artificial Tears ([id number])) 2 drp EACH EYE Q1H PRN DRY EYES #0 mL 11/14/21 [Rx Last Taken Unknown] loratadine 10 mg tablet (Allergy Relief (loratadine)) 10 mg PO DAILY ALLERGIES 05/21/22 [History Last Taken 05/24/23] gauze bandage 4 X 4 (Bordered Gauze) #14 ea 07/03/22 [Rx Last Taken Unknown] walker (Ultra-Light Rollator misc) #1 ea 07/21/22 [Rx Last Taken Unknown] insulin lispro 100 unit/mL subcutaneous pen sliding scale dose subcut ACHS DIABETES 08/12/22 [History Last Taken 05/24/23] pen needle, diabetic 33 gauge x 5/16 #200 ea 12/02/22 [Rx Last Taken Unknown] insulin lispro 100 unit/mL subcutaneous pen (Humalog KwikPen (U-100) Insulin) 14 unit (0.14 mL) subcut TIDAC 3 months #37.8 mL 03/04/23 [Rx Last Taken 05/24/23] fluoxetine 20 mg capsule 20 mg PO DAILY ANXIETY 03/23/23 [History Last Taken 05/24/23] melatonin 3 mg tablet 3 mg PO QHS INSOMNIA 03/23/23 [History Last Taken 05/24/23] albuterol sulfate 90 mcg/actuation aerosol inhaler 2 puff inhalation Q4H PRN SHORTNESS OF BREATH/WHEEZING 05/25/23 [History Last Taken Unknown] amlodipine 2.5 mg tablet 2.5 mg PO DAILY BLOOD PRESSURE 05/25/23 [History Last Taken 05/24/23] atorvastatin 80 mg tablet 80 mg PO QHS CHOLESTEROL 05/25/23 [History Last Taken 05/24/23] buspirone 7.5 mg tablet 7.5 mg PO TID ANXIETY 05/25/23 [History Last Taken 05/24/23] carvedilol 12.5 mg tablet 25 mg PO TID HEART 05/25/23 [History Last Taken 05/24/23] clonazepam 1 mg tablet 1 mg PO BID PRN Anxiety 05/25/23 [History Last Taken Unknown] clopidogrel 75 mg tablet 75 mg PO DAILY BLOOD THINNER 05/25/23 [History Last Taken 05/25/23] finasteride 5 mg tablet 5 mg PO DAILY PROSTATE 05/25/23 [History Last Taken 05/24/23] fluoxetine 40 mg capsule 40 mg PO DAILY ANXIETY 05/25/23 [History Last Taken 05/24/23] furosemide 40 mg tablet 40 mg PO DAILY FLUID 05/25/23 [History Last Taken 05/24/23] hydroxyzine HCl 10 mg tablet 10 mg PO TID ANXIETY 05/25/23 [History Last Taken 05/24/23] hydroxyzine HCl 25 mg tablet 25 mg PO QHS PRN ANXIETY 05/25/23 [History Last Taken 05/24/23] insulin detemir U-100 100 unit/mL (3 mL) subcutaneous pen (Levemir FlexPen) 40 unit subcut QHS DIABETES 05/25/23 [History Last Taken 05/24/23] isosorbide mononitrate 30 mg tablet,extended release 24 hr 30 mg PO DAILY HEART 05/25/23 [History Last Taken Unknown] losartan 50 mg tablet 50 mg PO DAILY BLOOD PRESSURE 05/25/23 [History Last Taken 05/24/23] magnesium oxide 400 mg PO DAILY SUPPLEMENT 05/25/23 [History Last Taken 05/24/23] metoclopramide HCl 5 mg tablet 5 mg PO TID NAUSEA/VOMITING 05/25/23 [History Last Taken 05/24/23] nitroglycerin 0.4 mg sublingual tablet 0.4 mg sublingual Q5M PRN CHEST PAIN 05/25/23 [History Last Taken Unknown] nystatin 100,000 unit/gram topical powder (Nyamyc) 1 applic topical BID SKIN INFECTIONS 05/25/23 [History Last Taken Unknown] pantoprazole 40 mg tablet,delayed release 40 mg PO DAILY ACID REFLUX 05/25/23 [History Last Taken 05/24/23] pregabalin 75 mg capsule (Lyrica) 75 mg PO BID PAIN 05/25/23 [History Last Taken 05/24/23] trazodone 150 mg tablet 150 mg PO QHS INSOMNIA 05/25/23 [History Last Taken 05/24/23] Allergy/AdvReac Type Severity Reaction Status Date / Time allopurinol AdvReac Vomiting Verified 05/25/23 09:07 Influenza Virus Vaccines AdvReac Vomiting Verified 05/25/23 09:07 pneumococcal vaccine AdvReac Vomiting Verified 05/25/23 09:07 Family History Mother Diabetes Heart disease CHF Father Heart disease NV/CAD Myocardial infarction Surgical History H/O lithotripsy History of angioplasty of peripheral vessel (2016) History of angioplasty of peripheral vessel History of ankle surgery History of cardiac catheterization History of coronary artery stent placement (08/2016) History of coronary artery stent placement History of esophagogastroduodenoscopy (EGD) History of left heart catheterization (11/15/17) History of thyroid surgery Hx of lithotripsy Hx of surgery to heart and great vessels, presenting hazards to health Hx of surgical procedure Hx of thyroidectomy Hx of toe surgery Hx of toe surgery PEG (percutaneous endoscopic gastrostomy) status Social History household members: spouse housing: apartment Smoking Status: Never smoker alcohol intake: never substance use type: does not use ROS ROS ED Constitutional Constitutional ED: Denies chills, fever(s) or sweats Eyes Eyes: Denies change in vision ENT ENT ED: Denies dysphagia or sore throat Cardiovascular Cardiovascular: Denies chest pain, leg edema, palpitations or racing heartbeat Respiratory/Chest Respiratory/Chest: Denies cough, dyspnea or dyspnea on exertion Gastrointestinal Gastrointestinal: Denies abdominal pain, diarrhea, nausea or vomiting Genitourinary Genitourinary ED: Denies dysuria, hematuria or urinary frequency Musculoskeletal Musculoskeletal: Reports back pain; Denies extremity pain or neck pain Integumentary Denies rash or wounds Neurologic Neurologic: Denies headache(s), paresthesias or weakness EXAM Physical Exam Const Vital Signs: 05/25/23 09:02 Temperature 97.0 F L Temperature Source Temporal Pulse Rate 56 L Respiratory Rate 16 Blood Pressure 159/86 H Blood Pressure Mean 110 Pulse Ox 100 Oxygen Delivery Method Nasal Cannula Oxygen Flow Rate (L/min) 3 Positive unkempt Constitutional Narrative: Chronic [place] there is oxygen no respiratory distress. General Appearance ED: unkempt and NAD HEENT Reports moist mucous membranes normocephalic and atraumatic Eyes PERRL, EOMs intact bilaterally and conjunctivae normal General Eye ED: Yes normal appearance of both eyes Neck no lymphadenopathy and supple General: Negative for tenderness Chest Wall Chest: Negative for tenderness Resp normal respiratory effort and normal air movement Effort and Inspection: symmetric chest movement; Negative for respiratory distress Cardio regular rate, regular rhythm and no murmurs Peripheral Pulses: pulses 2+ throughout GI normal to inspection, nondistended, normoactive bowel sounds and non-tender Palpation: Negative for guarding or rebound tenderness present Back/Spine Back/Spine Narrative: No midline tenderness, reproducible paralumbar tenderness bilaterally. Extremity Extremity Narrative: Left foot: There is ulceration at the lateral heel approximately 4 cm x 3 cm with drainage that is malodorous. General Extremety ED: Negative for edema or tenderness General Extremity: Negative for edema Neuro oriented x3 and no sensory deficits noted Sensorium / Orientation: awake and alert Psych Appearance: unkempt Skin Skin Narrative: See above MDM MDM MDM Narrative Medical decision making narrative: Interventions / MDM: Differential diagnosis: Back spasms, lumbar strain, diabetic foot ulcer Diagnosis considered but do not suspect: No cauda equina symptoms. No clinical UTI symptoms. No clinical kidney stone symptoms. My EKG interpretation: N/A Imaging independently reviewed and interpreted by myself: Three-view left foot: External documents reviewed: N/A Test considered but not ordered:N/A ED course: Initial patient concern for back spasms he is given Valium to attempt symptom control. Diabetic with CKD stage III. Avoid NSAIDs. Concerns for patient's mobility initially discussed with case management for potential evaluation in the ED. However he did state symptoms were improving attempted ambulate was unable to. Re-evaluation: Nursing evaluated patient noted increasing foot ulcer malodorous this was evaluated. Discussed with patient seeing other lasting wound care over 2 weeks ago and ulcer has worsened over 2 weeks. He is followed by Dr. Hess. Will check labs x-ray wound cultures. Patient require admission. Laboratory studies White count 12.2. 1 out of 4 SIRS criteria secondary. Wound cultures were obtained. Blood cultures pending. So sending ice and started. 1.36, CRP 26 ESR 33. I spoke with hospitalist Dr. Alicia Larkin for admission. Disposition discussed with patient/family/significant other: Patient and significant other Case discussed with consulting clinician: Hospitalist This note was generated with [employer] dictation software. It may contain incorrect words, spelling, and punctuation that were not noted in checking the note before signing. Lab Data Labs: Laboratory Results - last 24 hr 05/25/23 05/25/23 05/25/23 12:30 12:30 12:55 WBC 12.2 H RBC 4.24 L Hgb 11.6 L Hct 37.5 L MCV 88.4 MCH 27.4 MCHC 30.9 L RDW Std Deviation 42.5 RDW Coeff of James 13.1 Plt Count 214 MPV 11.1 Immature Gran % (Auto) 0.200 Neut % (Auto) 71.8 H Lymph % (Auto) 17.1 L Sab[place] % (Auto) 9.5 Eos % (Auto) 1.0 Baso % (Auto) 0.4 Absolute Neuts (auto) 8.8 H Absolute Lymphs (auto) 2.09 Nucleated RBC % 0 ESR 33 H PT Cancelled INR Cancelled APTT Cancelled Sodium 137 Potassium 4.8 Chloride 104 Carbon Dioxide 32.0 Anion Gap 1 L BUN 23 H Creatinine 1.36 H Estim Creat Clear Calc 56.66 Est GFR (MDRD) Af Amer 68 Est GFR (MDRD) Non-Af 56 L BUN/Creatinine Ratio 16.9 Glucose 169 H Calcium 9.5 C-React Prot High Sens 26.20 H 05/25/23 12:57 WBC RBC Hgb Hct MCV MCH MCHC RDW Std Deviation RDW Coeff of James Plt Count MPV Immature Gran % (Auto) Neut % (Auto) Lymph % (Auto) Sabine % (Auto) Eos % (Auto) Baso % (Auto) Absolute Neuts (auto) Absolute Lymphs (auto) Nucleated RBC % ESR PT 14.4 INR 1.1 APTT 31.2 Sodium Potassium Chloride Carbon Dioxide Anion Gap BUN Creatinine Estim Creat Clear Calc Est GFR (MDRD) Af Amer Est GFR (MDRD) Non-Af BUN/Creatinine Ratio Glucose Calcium C-React Prot High Sens Radiography Diagnostic Testing: Clinical Impression(s) from Imaging Studies Foot X-Ray 05/25/23 12:00 IMPRESSION: No definite acute abnormality. Electronically Signed: Krish De Jesus MD at 12:28 EDT , Discharge Plan Dx/Rx/DC Orders Clinical Impression: Diabetic ulcer of left foot, Back pain, CKD (chronic kidney disease), Back spasm Disposition Disposition: Acute Care Hospital [facility] Discharge Date/Time: 05/25/23 14:20
[2023-05-25] MEDS: diazePAM 5 MG Tablet PO (09:36)
--- NOTE | 2023-05-25 11:13 | ED.RN ---
Left middle bottom of foot wound draining thick purulent drainage. Wound dressing appears old. Patient states painful upon touch.
--- NOTE | 2023-05-25 11:39 | CM.ED ---
Social Work Case Management SW Face to Face with patient for initial transition planning/care coordination assessment. SW introduced self and role at [facility]. Patient lying in bed, alert and oriented. Patient willing to participate in assessment and is able to answer questions and partner, Doris, present to assist with answers.? Care providers, pharmacy, and demographics verified. Patient wishes to discharge home, denies need for SNF/HHC.?Pt is not ambulating at home and not appropriate for home. Pt here for back pain and denied any concerns but when spouse arrived she reports a wound on his foot which patient had not revealed. Pt is adamant about going home but is unable to care for self appropriately and would likely benefit from PT. Nursing notified of wound on foot. SW to follow for discharge planning needs that may arise. PCP: Kevin Specialists:Jennifer Lanier Pharmacy: [facility] Insurance: [employer] dual Prescription Benefit:?Yes Living Will/HPOA:Yes, Doris HCPOA LNOK: Doris is HCPOA, denied children but then disclosed he has a son (strained relationship). Living Arrangements: Apt, no stairs with partner and her son Transportation: Partner drives DME/HHC: 4 liters of home O2, has BSC, rollator, glucometer, pulse ox. Pt is sleeping in a recliner and reports a lift chair and rails/grab bars would be helpful. Pt was at [facility] for care in the past, [facility] and reports a new home health aide is coming Wednesday. Reports home meals through [facility] and hospice care sales consultant through [facility] but doesn't know her name. SW to call [facility] and speak with hospice care sales consultant. Disposition Plan: Pt being re-evaluated and awaiting results. Likely to be admitted and need SNF placement but pt is resistent to SNF at this time. SW to follow for patient needs. Sushila Dailey BRIDGE BUILDER, PATHOLOGY COLLECTOR
--- NOTE | 2023-05-25 12:00 | RAD_ITS ---
STUDY: X-RAY - LEFT FOOT CLINICAL: Male, 63 years old. ulcer TECHNIQUE: 3 view(s) of the foot. COMPARISON: 12/17/2022. FINDINGS: Normal talus, calcaneus, and tarsal bones. Degenerative changes throughout the visualized subtalar, talonavicular, calcaneocuboid, tarsal and tarsometatarsal articulations. Normal metatarsi. Normal metatarsophalangeal joint of the great toe. Normal tibial and fibular sesamoid bones. Normal interphalangeal joint of the great toe. Normal phalanges of the great toe. Normal second through fifth metatarsophalangeal joints. Normal interphalangeal joints and phalanges of the lesser toes. The soft tissue structures are unremarkable. No soft tissue gas seen. It is not clear where the patient has a soft tissue ulcer. Correlate with physical exam. Heavily calcified vessels of the foot again seen consistent with advanced atherosclerosis. There is no demonstrated fracture. Stable appearance of 2 orthopedic screws through the medial malleolus. RAD/Foot min 3 Views IMPRESSION: No definite acute abnormality. Electronically Signed: Krish De Jesus MD at 12:28 EDT ,
[2023-05-25] MEDS: Morphine 4 MG/ML Syringe IV (12:38)
--- NOTE | 2023-05-25 12:41 | ED.RN ---
Wound cultures obtained. Wound cleansed with normal saline and dried. Non adherent dressing applied with mavis wrap bandage. Patient tolerated well.
[2023-05-25 12:49] LABS: Erythrocyte Sedimentation Rate 33 mm/hr (0-20)
[2023-05-25 12:50] LABS: Absolute Lymphocyte Count 2.09 X10^3/uL (0.83-4.51); Absolute Neutrophil Count 8.8 X10^3/uL (2.0-7.7); Basophil# 0.05 X10^3/uL; Basophil% 0.4 % (0-1); Eosinophil# 0.12 X10^3/uL; Hematocrit 37.5 % (40-54); Hemoglobin 11.6 g/dL (13.0-16.5); Lymphocyte # 2.09 X10^3/ul (0.83-4.51); Lymphocyte % 17.1 % (19-41); Mean Corp Hgb Conc 30.9 g/dL (32-36); Mean Corpuscular Hgb 27.4 pg (27.0-32.0); Mean Corpuscular Volume 88.4 fL (80-94); Mean Platelet Vol. 11.1 fl (6.2-12.0); Monocyte# 1.16 X10^3/uL; Monocyte% 9.5 % (0-10); NRBC Flagged by Analyzer 0 % (0-5); Neutrophil # 8.76 X10^3/uL (2.7-7.7); Neutrophil % 71.8 % (47-70); Platelet Count 214 K/mm3 (150-450); RBC Distribution Width CV 13.1 % (11.6-14.6); RBC Distribution Width SD 42.5 fl (35.1-43.9); Red Blood Count 4.24 M/mm3 (4.6-6.2); White Blood Count 12.2 K/mm3 (4.4-11.0)
[2023-05-25 13:20] LABS: International Normalized Ratio 1.1; Prothrombin Time (Protime)PT. 14.4 SECONDS (11.7-14.9)
[2023-05-25 13:22] LABS: Partial Thromboplast Time 31.2 Seconds (24.1-36.2)
--- NOTE | 2023-05-25 13:49 | NURSING ---
DR BEATRICE HUTCHISON
--- NOTE | 2023-05-25 13:52 | NURSING ---
MED SURG BEATRICE DIABETIC LEFT FOOT ULCER, BACK PAIN
--- NOTE | 2023-05-25 13:58 | PCM.HP.STD ---
HPI - General General Date of Admission: 05/25/23 Date of Service: 05/25/23 Chief Complaint: Back pain/left foot wound HPI Narrative REA HANNA, is a 63 M who presented to the emergency department at [facility] on 05/25/2023 with back pain. The patient was to meet with Dr. Hess today with regards to her left lower extremity foot wound but had significant back pain that was localized to his mid back and radiated across bilaterally to both sides. He had no radiation down his legs, bowel or bladder changes, and denied any tingling or numbness. He and his significant other reports that the wound has been there for approximately 1 year and had been healing however in the last month the wound opened back up and has gotten larger again. His significant other reports initially foul purulent appearing drainage came out of it and now its been a thick serous sanguinous drainage. Wound cultures were done on 05/13/2023 and growth is showing MRSA. He has pain associated with this. He is a diabetic with his last hemoglobin A1c which was on 05/15/2022 was 8.0. He does have neuropathy however he does have pain associated with this left foot wound. He had been going to wound care but they have since referred him to podiatry office. Vital signs on presentation show a temperature of 97.9, blood pressure 159/86, heart rate 56, oxygen saturation is 100% on 4 L nasal cannula and respiratory rate 16. His CBC is mildly abnormal with an elevated white count of 12.2 and a neutrophilia at 71.8%. Is a mild anemia which appears to be stable. Coags are normal and chemistry panel is pending at the time of admission. ESR was slightly elevated at 33. CRP is pending on admission. X-ray of the foot was performed and shows no acute abnormality. In the emergency department he was given doses of vancomycin and Zosyn as well as pain medication to help with his back pain. [facility] Medical History Ambulates with cane Amputation of one or more toes Anxiety Anxiety and depression Arrhythmia Arthritis Aspiration into airway Aspiration pneumonia Atherosclerotic heart disease of [place] coronary artery without angina pectoris Bilateral leg weakness Blind left eye Blister (nonthermal), left foot, initial encounter Bronchiectasis with (acute) exacerbation Cardiology follow-up encounter Chronic cough Chronic respiratory failure with hypoxia COPD (chronic obstructive pulmonary disease) CPAP (continuous positive airway pressure) dependence Debility, unspecified Depression Diabetes Essential hypertension Gastric reflux GERD (gastroesophageal reflux disease) High cholesterol History of aspiration pneumonia History of diabetes mellitus History of echocardiogram History of edema History of gout History of heart attack History of non-ST elevation myocardial infarction (NSTEMI) (08/2016) History of pain when walking History of steroid therapy History of stress test Hyperglycemia due to type 2 diabetes mellitus Hypertension Insulin dependent diabetes mellitus Kidney disease Kidney stones Kidney stones Leg pain, right Leukocytosis Low back pain Memory impairment Migraines Mood disorder Myocardial infarct Non-smoker Noncompliance by declining intervention or support On home oxygen therapy Peripheral vascular occlusive disease Pneumonia Prostate disease Pulmonary nodule, left Recurrent falls Right ankle pain Right foot pain Shortness of breath on exertion Silent aspiration Sleep apnea Tremor Type 2 diabetes mellitus Type 2 diabetes mellitus with diabetic polyneuropathy Ulcer of left foot, limited to breakdown of skin 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 Wears glasses Wound of left lower extremity Home Medications acetaminophen 500 mg tablet 1,000 mg PO QHS PRN PAIN 02/11/21 [History Last Taken 05/24/23] aspirin 81 mg tablet,delayed release (Adult Aspirin Regimen) 81 mg PO DAILY HEART HEALTH 11/05/21 [History Last Taken 05/24/23] spironolactone 25 mg tablet 25 mg PO QHS FLUID 11/08/21 [History Last Taken 08/29/22 22:00] peg 625-earalurufzkn-osldkhig 1 %-0.2 %-0.2 % eye drops (Artificial Tears ([id number])) 2 drp EACH EYE Q1H PRN DRY EYES #0 mL 11/14/21 [Rx Last Taken Unknown] loratadine 10 mg tablet (Allergy Relief (loratadine)) 10 mg PO DAILY ALLERGIES 05/21/22 [History Last Taken 05/24/23] gauze bandage 4 X 4 (Bordered Gauze) #14 ea 07/03/22 [Rx Last Taken Unknown] walker (Ultra-Light Rollator misc) #1 ea 07/21/22 [Rx Last Taken Unknown] insulin lispro 100 unit/mL subcutaneous pen sliding scale dose subcut ACHS DIABETES 08/12/22 [History Last Taken 05/24/23] pen needle, diabetic 33 gauge x 5/16 #200 ea 12/02/22 [Rx Last Taken Unknown] insulin lispro 100 unit/mL subcutaneous pen (Humalog KwikPen (U-100) Insulin) 14 unit (0.14 mL) subcut TIDAC 3 months #37.8 mL 03/04/23 [Rx Last Taken 05/24/23] fluoxetine 20 mg capsule 20 mg PO DAILY ANXIETY 03/23/23 [History Last Taken 05/24/23] melatonin 3 mg tablet 3 mg PO QHS INSOMNIA 03/23/23 [History Last Taken 05/24/23] albuterol sulfate 90 mcg/actuation aerosol inhaler 2 puff inhalation Q4H PRN SHORTNESS OF BREATH/WHEEZING 05/25/23 [History Last Taken Unknown] amlodipine 2.5 mg tablet 2.5 mg PO DAILY BLOOD PRESSURE 05/25/23 [History Last Taken 05/24/23] atorvastatin 80 mg tablet 80 mg PO QHS CHOLESTEROL 05/25/23 [History Last Taken 05/24/23] buspirone 7.5 mg tablet 7.5 mg PO TID ANXIETY 05/25/23 [History Last Taken 05/24/23] carvedilol 12.5 mg tablet 25 mg PO TID HEART 05/25/23 [History Last Taken 05/24/23] clonazepam 1 mg tablet 1 mg PO BID PRN Anxiety 05/25/23 [History Last Taken Unknown] clopidogrel 75 mg tablet 75 mg PO DAILY BLOOD THINNER 05/25/23 [History Last Taken 05/25/23] finasteride 5 mg tablet 5 mg PO DAILY PROSTATE 05/25/23 [History Last Taken 05/24/23] fluoxetine 40 mg capsule 40 mg PO DAILY ANXIETY 05/25/23 [History Last Taken 05/24/23] furosemide 40 mg tablet 40 mg PO DAILY FLUID 05/25/23 [History Last Taken 05/24/23] hydroxyzine HCl 10 mg tablet 10 mg PO TID ANXIETY 05/25/23 [History Last Taken 05/24/23] hydroxyzine HCl 25 mg tablet 25 mg PO QHS PRN ANXIETY 05/25/23 [History Last Taken 05/24/23] insulin detemir U-100 100 unit/mL (3 mL) subcutaneous pen (Levemir FlexPen) 40 unit subcut QHS DIABETES 05/25/23 [History Last Taken 05/24/23] isosorbide mononitrate 30 mg tablet,extended release 24 hr 30 mg PO DAILY HEART 05/25/23 [History Last Taken Unknown] losartan 50 mg tablet 50 mg PO DAILY BLOOD PRESSURE 05/25/23 [History Last Taken 05/24/23] magnesium oxide 400 mg PO DAILY SUPPLEMENT 05/25/23 [History Last Taken 05/24/23] metoclopramide HCl 5 mg tablet 5 mg PO TID NAUSEA/VOMITING 05/25/23 [History Last Taken 05/24/23] nitroglycerin 0.4 mg sublingual tablet 0.4 mg sublingual Q5M PRN CHEST PAIN 05/25/23 [History Last Taken Unknown] nystatin 100,000 unit/gram topical powder (Nyamyc) 1 applic topical BID SKIN INFECTIONS 05/25/23 [History Last Taken Unknown] pantoprazole 40 mg tablet,delayed release 40 mg PO DAILY ACID REFLUX 05/25/23 [History Last Taken 05/24/23] pregabalin 75 mg capsule (Lyrica) 75 mg PO BID PAIN 05/25/23 [History Last Taken 05/24/23] trazodone 150 mg tablet 150 mg PO QHS INSOMNIA 05/25/23 [History Last Taken 05/24/23] Allergy/AdvReac Type Severity Reaction Status Date / Time allopurinol AdvReac Vomiting Verified 05/25/23 09:07 Influenza Virus Vaccines AdvReac Vomiting Verified 05/25/23 09:07 pneumococcal vaccine AdvReac Vomiting Verified 05/25/23 09:07 Family History Mother Diabetes Heart disease CHF Father Heart disease [place]/CAD Myocardial infarction Surgical History H/O lithotripsy History of angioplasty of peripheral vessel (2016) History of angioplasty of peripheral vessel History of ankle surgery History of cardiac catheterization History of coronary artery stent placement (08/2016) History of coronary artery stent placement History of esophagogastroduodenoscopy (EGD) History of left heart catheterization (11/15/17) History of thyroid surgery Hx of lithotripsy Hx of surgery to heart and great vessels, presenting hazards to health Hx of surgical procedure Hx of thyroidectomy Hx of toe surgery Hx of toe surgery PEG (percutaneous endoscopic gastrostomy) status Social History household members: spouse housing: apartment Smoking Status: Never smoker alcohol intake: never substance use type: does not use ROS Constitutional Constitutional: Denies anorexia, change in weight, chills, fatigue, fever(s), malaise, night sweats, weakness or other Eyes Eyes: Denies blurry vision, change in eye color, change in vision, discharge from eye(s), double vision, erythema, eye pain, loss of vision or other ENT HEENT: Denies abnormal hearing, dysphagia, ear pain, epistaxis, headache(s), hearing loss, nasal congestion, nasal discharge, post nasal drip, sinus pressure, sore throat or other Cardiovascular Cardiovascular: Denies chest pain, claudication, dyspnea on exertion, edema, lightheadedness, orthopnea, palpitations, paroxysmal nocturnal dyspnea, rapid heart rate, syncope or other Respiratory/Chest Respiratory/Chest: Denies cough, dyspnea, excessive phlegm production, hemoptysis, productive cough, shortness of breath at rest, shortness of breath with exertion, wheezing or other Gastrointestinal Gastrointestinal: Denies abdominal pain, coffee ground emesis, constipation, diarrhea, dyspepsia, hematemesis, hematochezia, loose stools, melena, nausea, vomiting or other Genitourinary Genitourinary: Denies burning urination, difficulty urinating, dysuria, hematuria, nocturia, urinary frequency, urinary hesitancy, urinary incontinence, urinary urgency or other Musculoskeletal Musculoskeletal: Reports back pain; Denies arthralgias, joint pain, joint stiffness, joint swelling, myalgias, neck pain or other Neurologic Neurologic: Reports abnormal gait; Denies abnormal speech, confusion, disequilibrium, dizziness, focal weakness, headache(s), numbness, paresthesias, seizure-like activity, seizures, syncope, tingling, tremor(s) or other Psychiatric Psychiatric: Reports anxiety and depression; Denies homicidal ideation, suicidal ideation or other Endocrine Endocrinology: Denies change in body appearance, cold intolerance, excessive sweating, heat intolerance, polydipsia, polyuria or other Hematologic/Lymphatic Hematologic/Lymphatic: Denies anemia, easy bleeding, easy bruising, lymphadenopathy or other Allergic/Immunologic Allergic/Immunologic: Denies rhinitis, hives, eczemia, asthma or other Vital Signs Vital Signs Vital Signs: 05/25/23 09:02 Temperature 97.0 F L Temperature Source Temporal Pulse Rate 56 L Respiratory Rate 16 Blood Pressure 159/86 H Blood Pressure Mean 110 Pulse Ox 100 Oxygen Delivery Method Nasal Cannula Oxygen Flow Rate (L/min) 3 Weight Weight: 129.9 kg Body Mass Index (BMI) 41.1 Physical Exam Const alert, oriented x3, no apparent distress and well nourished; Negative for average body habitus Constitutional Narrative: Morbidly obese, upper middle-aged, white male, lying in bed and quite sleepy after being given pain medication for his back however does awaken and is appropriate, significant other is at bedside, patient appears comfortable and nontoxic on his baseline oxygen at 4 L General Appearance: cooperative HEENT normocephalic, head/scalp atraumatic, hearing grossly normal bilaterally and moist oral mucous membranes HEENT Narrative: Mallampati 3, no thrush Eyes PERRL, EOMs intact bilaterally and conjunctivae normal Eyes Narrative: No scleral icterus Neck no lymphadenopathy and supple Neck Narrative: Trachea midline, no thyroid enlargement Resp normal respiratory effort, no retractions, no use of accessory muscles and clear to auscultation bilaterally Resp Narrative: bases bilaterally but otherwise clear Auscultation: Negative for rales, rhonchi or wheezes Cardio regular rate, regular rhythm, S1 normal heart sound, S2 normal heart sound, no murmurs, no rub, no gallops and no clicks GI normal to inspection, nondistended, normoactive bowel sounds, soft to palpation and non-tender GI Narrative: Old PEG site well-healed Extremity no clubbing, cyanosis or edema Extremity Narrative: pedal pulses are 2+, cap refill is good at 2+ Skin Skin Narrative: Low left foot on plantar surface just anterior to the heel is an open area that is about the size of a silver dollar with mild serosanguineous drainage and mild depth with no surrounding erythema Neuro oriented x3, CN's II-XII intact bilaterally, moves all extremities and no focal motor deficits Neuro Narrative: Decree sensation bilateral distal lower extremities Speech: speech normal Psych Psych Narrative: Patient sleepy due to medication but appears comfortable and is pleasant and appropriately interactive Results Lab / Micro Data Attestation: I reviewed the patient's lab results. Result Diagrams: 05/25/23 12:30 05/25/23 12:55 Labs: Laboratory Results - last 24 hr 05/25/23 12:30: WBC 12.2 H, RBC 4.24 L, Hgb 11.6 L, Hct 37.5 L, MCV 88.4, MCH 27.4, MCHC 30.9 L, RDW Std Deviation 42.5, RDW Coeff of James 13.1, Plt Count 214, MPV 11.1, Immature Gran % (Auto) 0.200, Neut % (Auto) 71.8 H, Lymph % (Auto) 17.1 L, [place] % (Auto) 9.5, Eos % (Auto) 1.0, Baso % (Auto) 0.4, Absolute Neuts (auto) 8.8 H, Absolute Lymphs (auto) 2.09, Nucleated RBC % 0, ESR 33 H 05/25/23 12:30: PT Cancelled, INR Cancelled, APTT Cancelled 05/25/23 12:57: PT 14.4, INR 1.1, APTT 31.2 Radiology Impression Foot X-Ray 05/25/23 12:00 IMPRESSION: No definite acute abnormality. Electronically Signed: Krish De Jesus MD at 12:28 EDT , Assessment & Plan Assessment/Plan (1) Back pain: (2) Diabetic ulcer of left foot: PLAN: Plan L LE Diabetic Foot Wound -Patient has had wound for almost a year and had been healing however in the last month that opened up and initially was draining purulent looking fluid--> significant other reports the fluid now is a thick serosanguineous appearing fluid -ESR is 33 and CRP remains pending -Imaging is unremarkable -Wound does not look all that deep at this time -Wound cultures and blood cultures obtained -Start vancomycin and Zosyn -Recent culture from 05/13/2023 showed MRSA -I do not think he needs an MRI at this time -Consult podiatry -Consult wound care Back Pain -New home Lyrica for pain-schedule Tylenol -As needed oxycodone -Tizanidine -Topical lidocaine -Physical and Occupational Therapy -We will check x-rays of lumbar sacral spine DM-2 -Most recent A1c from 05/15/2022 was 8.0 -Continue home Levemir 40 units at at bedtime -Continue log 3 times daily 14 units with meals -Moderate high-dose sliding scale -Accu-Cheks before meals and at bedtime -Cardiac/carb controlled diet Chronic hypoxic respiratory failure -Patient with history of recurrent aspiration pneumonia -Currently respiratory status is at baseline -Continue home oxygen supplementation of 4 L nasal cannula -Continue home inhalers History of dysphagia/gastroparesis -Patient has had PEG previously been a Luigi tube and then a recurrent PEG -Per patient's wishes these of all been removed at this time -No recent issues with any aspiration -Patient remains on a carb control/cardiac diet without significant modifications however patient has been following speech therapy recommendations -Monitor closely for any signs of aspiration -Continue home Reglan Peripheral vascular disease -Continue aspirin and Plavix CAD/HTN/HPL -Continue home carvedilol -Continue home amlodipine -Continue home Lasix -Continue home isosorbide mononitrate -Continue home Aldactone -Continue home losartan -Continue home aspirin -Continue home Plavix GERD -Continue Protonix Diabetic neuropathy -Continue Lyrica Chronic diastolic heart failure -Currently compensated -Continue home chronic medications including diuretics Anxiety/depression/insomnia -Continue home clonazepam 1 mg p.o. twice daily as needed -Continue home fluoxetine 20 mg daily -Continue home trazodone -Continue home scheduled hydroxyzine and as needed hydroxyzine BPH -Continue home finasteride Morbid obesity -BMI is 41.1 -Recommend weight loss -Complicates treatment, prognosis, outcomes DVT prophylaxis -Lovenox 40 mg twice daily CODE STATUS -Full code Charges/Coding Visit Charges Inpatient E&M: 42286 Init Hosp L3
--- NOTE | 2023-05-25 15:09 | WOUNDNOTE ---
wound photo: left heel
[2023-05-25 15:13] LABS: Anion Gap 1 (5-15); BUN 23 mg/dL (7-18); BUN/Creat Ratio 16.9 RATIO (10-20); Calcium,Total 9.5 mg/dL (8.5-10.1); Chloride 104 mmol/L (98-107); Creatinine, Serum 1.36 mg/dL (0.70-1.30); EST Glomerular Filtration Rate 56 mL/min (>60); Est Glom Filt Rate - Afr Amer 68 mL/min (>60); Estimated Creatinine Clearance 56.66 ml/min; Glucose 169 mg/dL (74-106); Potassium 4.8 mmol/L (3.5-5.1); Sodium Level 137 mmol/L (136-145)
--- NOTE | 2023-05-25 15:14 | CM.ED ---
Social Work Patient has direction nurse practitioner home assessments but was uncertain who. SW called and patient has Donna, mail left for ostomy care nurse. Ssuhila Dailey SPECIAL EDUCATION RESOURCE TEACHER, SAMPLE GRADER
--- NOTE | 2023-05-25 15:50 | RAD_ITS ---
INDICATION: LBP EXAMINATION/TECHNIQUE: X-RAY - XR Spine Lumbar 2 or 3 Views COMPARISON: 07/04/2022 FINDINGS: VERTEBRAE: Preserved vertebral body height. No fracture. No spondylolisthesis. Preservation of the normal lumbar lordosis. Facet arthrosis increases from superior to inferior. DISCS: Mild disc space loss and endplate disease at all levels. INCLUDED ABDOMEN: Included bowel gas pattern is non-obstructive. RAD/Lumbar Spine 2 or 3 Views IMPRESSION: Lower more than upper lumbar spine degenerative change is similar to 07/04/2022. Electronically Signed: Freddy Dillon MD at 16:11 EDT ,
--- NOTE | 2023-05-25 15:57 | PCM.RX.CS ---
Consult Pharmacy has been consulted to manage selected antiobiotic: Vancomycin Type of Consult: New start Suspected Infection: Skin/Soft tissue Prior Doses of Antibiotics Received/Current Regimen: Vancomycin 2000mg x1 given 05/25/23 @ 1351 Labs: Sodium 137 mmol/L (136-145) 05/25/23 12:55 Potassium 4.8 mmol/L (3.5-5.1) 05/25/23 12:55 Chloride 104 mmol/L (98-107) 05/25/23 12:55 Carbon Dioxide 32.0 mmol/L (21.0-32.0) 05/25/23 12:55 Anion Gap 1 (5-15) L 05/25/23 12:55 BUN 23 mg/dL (7-18) H 05/25/23 12:55 Creatinine 1.36 mg/dL (0.70-1.30) H 05/25/23 12:55 Est GFR (MDRD) Af Amer 68 mL/min (>60) 05/25/23 12:55 Est GFR (MDRD) Non-Af 56 mL/min (>60) L 05/25/23 12:55 BUN/Creatinine Ratio 16.9 RATIO (10-20) 05/25/23 12:55 Glucose 169 mg/dL (74-106) H 05/25/23 12:55 Microbiology: Microbiology 05/25/23 12:30 Wound - Heel, Left Gram Stain - Final Weight used for dosin kg Estimated Creatinine Clearance: 57 Goal Trough: 15-20 mcg/mL Pharmacy Plan for Drug Dosing: Vancomycin 1250mg every 12 hours starting 05/26/23 @ 0200 Pharmacy Service will continue to monitor and adjust dosing as required. Follow-Up Labs: Trough Vancomycin Labs to be done on [date and time ordered]: 05/27/23 @ 0130
[2023-05-25] MEDS: Carvedilol 12.5 MG Tablet 25 MG PO (16:44)
[2023-05-25] MEDS: Acetaminophen 500 MG Tablet 1000 MG PO ×2 (16:45→21:48)
[2023-05-25] MEDS: Insulin Lispro 100 UNIT/ML INSULN.PEN 14 UNIT SC (16:46)
[2023-05-25] MEDS: hydrOXYzine 10 MG Tablet PO ×2 (16:47→21:53)
[2023-05-25] MEDS: Metoclopramide 5 MG TABLET PO ×2 (16:48→21:42)
[2023-05-25] MEDS: busPIRone 15 MG TABLET 7.5 MG PO ×2 (16:49→21:52)
[2023-05-25 16:59] LABS: M R Staph aureus DNA By PCR Negative (Negative); Probe Check PASS; Staph aureus DNA By PCR POSITIVE (Negative)
[2023-05-25] MEDS: MELATONIN 3 MG TABLET PO (21:42)
[2023-05-25] MEDS: Menthol/Lanolin/Calamine/Znox 113 GM Tube 1 APPLIC TOPICAL (21:48)
[2023-05-25] MEDS: Spironolactone 25 MG Tablet PO (21:48)
[2023-05-25] MEDS: Pregabalin 75 MG Capsule PO (21:53)
[2023-05-25] MEDS: Enoxaparin 40 MG/0.4 ML Syringe SC (21:54)
[2023-05-25] MEDS: Atorvastatin Calcium 80 MG Tablet PO (21:55)
[2023-05-25] MEDS: Nystatin Powder 15gm Bottle 1 APPLIC TOPICAL (21:56)
[2023-05-25] MEDS: Insulin Glargine-YFGN 100 UNIT/ML Pen 40 UNIT SC (22:00)
[2023-05-25 23:45] LABS: Bedside Glucose 155 mg/dL (74-106)
[2023-05-26 01:25] VITALS: BP 153/74; PULSE 46; RESP 18; TEMP 36.4; O2SAT 100
[2023-05-26 04:46] LABS: Bedside Glucose 168 mg/dL (74-106)
[2023-05-26] MEDS: busPIRone 15 MG TABLET 7.5 MG PO ×2 (05:25→14:38)
[2023-05-26] MEDS: Metoclopramide 5 MG TABLET PO ×2 (05:25→13:47)
[2023-05-26] MEDS: Acetaminophen 500 MG Tablet 1000 MG PO ×2 (05:25→13:48)
[2023-05-26] MEDS: hydrOXYzine 10 MG Tablet PO ×2 (05:25→13:47)
[2023-05-26 05:48] VITALS: BP 172/82; PULSE 44
[2023-05-26] MEDS: hydrALAZINE 20 MG/ML Vial 10 MG IV (05:48)
[2023-05-26 07:16] LABS: Absolute Lymphocyte Count 2.04 X10^3/uL (0.83-4.51); Absolute Neutrophil Count 5.4 X10^3/uL (2.0-7.7); Basophil# 0.05 X10^3/uL; Basophil% 0.6 % (0-1); Eosinophils% 3.4 % (0-5); Hematocrit 39.8 % (40-54); Hemoglobin 12.3 g/dL (13.0-16.5); Lymphocyte # 2.04 X10^3/ul (0.83-4.51); Lymphocyte % 23.3 % (19-41); Mean Corp Hgb Conc 30.9 g/dL (32-36); Mean Corpuscular Hgb 27.5 pg (27.0-32.0); Mean Corpuscular Volume 88.8 fL (80-94); Mean Platelet Vol. 10.9 fl (6.2-12.0); Monocyte# 0.94 X10^3/uL; Monocyte% 10.7 % (0-10); NRBC Flagged by Analyzer 0 % (0-5); Neutrophil # 5.39 X10^3/uL (2.7-7.7); Neutrophil % 61.7 % (47-70); Platelet Count 211 K/mm3 (150-450); RBC Distribution Width CV 12.8 % (11.6-14.6); RBC Distribution Width SD 41.9 fl (35.1-43.9); Red Blood Count 4.48 M/mm3 (4.6-6.2); White Blood Count 8.8 K/mm3 (4.4-11.0)
[2023-05-26 07:40] LABS: ALB/GLOB Ratio 0.6 RATIO (0.9-2.4); AST(SGOT) 15 U/L (15-37); Alanine Aminotransfer ALT/SGPT 14 U/L (16-61); Albumin, Serum 2.9 g/dL (3.2-5.0); Alkaline Phosphatase 117 U/L (45-117); Anion Gap 5 (5-15); BUN 20 mg/dL (7-18); BUN/Creat Ratio 16.8 RATIO (10-20); Calcium,Total 9.4 mg/dL (8.5-10.1); Chloride 107 mmol/L (98-107); Creatinine, Serum 1.19 mg/dL (0.70-1.30); EST Glomerular Filtration Rate 65 mL/min (>60); Est Glom Filt Rate - Afr Amer 79 mL/min (>60); Estimated Creatinine Clearance 64.75 ml/min; Globulin 4.5 g/dL (2.2-4.2); Glucose 156 mg/dL (74-106); Magnesium 2.5 mg/dL (1.6-2.6); Phosphorus 3.7 mg/dL (2.5-4.9); Potassium 3.9 mmol/L (3.5-5.1); Protein, Total 7.4 g/dL (6.4-8.2); Sodium Level 141 mmol/L (136-145)
--- NOTE | 2023-05-26 07:46 | PCM.CONS.GEN ---
Assessment & Plan Assessment/Plan (1) Back pain: (2) Diabetic ulcer of left foot: (3) Type 2 diabetes mellitus with diabetic polyneuropathy: (4) Non-pressure chronic ulcer of other part of left foot with fat layer exposed: PLAN: Plan Patient seen and evaluated Left foot: There is a plantar ulceration just anterior to the calcaneal tuberosity of the left heel. Ulceration demonstrates mixed fibrogranular layer with some slight maceration periwound secondary to serosanguineous drainage. No erythema, no malodor, no purulent drainage, no palpable fluctuance/bogginess, no visible abscess formation, no lymphangitic streaking. Wound site appears stable without signs of infection. Following verbal permission left plantar heel ulceration, Deutsch stage I, underwent sharp excisional debridement to the level of the subcutaneous tissue utilizing a #7 curette. 100% of the ulcerative site was debrided to healthy bleeding tissue. Debridement consisted of removal of fibrous, devitalized subcutaneous, biofilm, slough. Hemostasis achieved with pressure and gauze. No local anesthetic required during debridement secondary to patient's significant diabetic peripheral polyneuropathy. Patient tolerated the procedure well. Radiographs obtained 05/25/2023 are negative for osteomyelitis. I have independently reviewed these radiographic images and concur with radiographic read. At this time I do not believe he requires MRI. WBC upon admission 12.2 with mild elevation, no left shift. Patient receiving IV Vanco/Zosyn. WBC decreased to 8.8 currently. Wound culture was obtained which was MRSA PCR negative, Staph aureus protein A PCR positive. Blood culture obtained, awaiting results. Previous wound culture from 05/13/2023 demonstrates MRSA. Following debridement site was washed with soap and water and Aquacel AG was applied to the wound base and site dressed with dry sterile dressing. Dressing to be changed daily. Recommend continued offloading in his offloading boot to the left heel. Recommend continued elevation of lower extremities at times of rest to aid in edema control Last hemoglobin A1c was 8% on 05/15/2022. Discussed proper diabetic diet with him today and encouraged continued glycemic control to reduce A1c towards goal of 6.5%. Stressed lifestyle modification to encourage weight loss to decrease load on the foot eating and decrease pressure across ulcerative site as well as decreasing back pain, and improving general overall wellbeing. Medicine team currently following for medical management, they are greatly appreciated. Wound care nurse following for dressing changes, she is appreciated. At this time given wound is stable with no localized signs of infection and healthy viable tissue postdebridement, no podiatric surgical intervention is planned. Recommend continued localized wound care with weekly to biweekly debridement of the ulcerative site. Recommend continued offloading in his offloading boot to the left heel. Upon discharge he will follow-up with Dr. Hess in office for continued local wound care management of the left heel. Please do not hesitate to call with any questions or concerns Wallace Donnelly Jr. D.P.M. [facility] [phone] HPI Consult Data Date of Consult: 05/26/23 HPI Narrative Reason for Consultation: Left plantar heel ulceration HPI Narrative: REA HANNA, is a 63 M who presents to the [facility] ED with complaint of back pain on 05/25/2023. Patient has PMHx of DM type II with peripheral polyneuropathy, CKD stage III, COPD on home oxygen, chronic back pain, morbid obesity, recurring history of left plantar heel ulceration. Patient states he was supposed to meet with Dr. Hess in the office the morning of 05/25/2023 however had onset of worsening back pain which radiated across both sides. States that pain did not radiate down the legs and he denied any numbness or tingling. He also reports left plantar heel wound which he has been battling for over a year off and on. States at one point this wound was healed however did open back up and he was following with Dr. Hess in office for continued wound care. Last visit was 2 weeks ago and he feels the wound did drain a little bit more leading to it getting bigger. Wound cultures were performed on 05/13/2023 with growth demonstrating MRSA. He does have some pain with palpation about the wound site. Has been offloading left heel with boot. He was consulted to podiatry for evaluation of his left plantar heel wound. [facility] Medical History Ambulates with cane Amputation of one or more toes Anxiety Anxiety and depression Arrhythmia Arthritis Aspiration into airway Aspiration pneumonia Atherosclerotic heart disease of [place] coronary artery without angina pectoris Bilateral leg weakness Blind left eye Blister (nonthermal), left foot, initial encounter Bronchiectasis with (acute) exacerbation Cardiology follow-up encounter Chronic cough Chronic respiratory failure with hypoxia COPD (chronic obstructive pulmonary disease) CPAP (continuous positive airway pressure) dependence Debility, unspecified Depression Diabetes Essential hypertension Gastric reflux GERD (gastroesophageal reflux disease) High cholesterol History of aspiration pneumonia History of diabetes mellitus History of echocardiogram History of edema History of gout History of heart attack History of non-ST elevation myocardial infarction (NSTEMI) (08/2016) History of pain when walking History of steroid therapy History of stress test Hyperglycemia due to type 2 diabetes mellitus Hypertension Insulin dependent diabetes mellitus Kidney disease Kidney stones Kidney stones Leg pain, right Leukocytosis Low back pain Memory impairment Migraines Mood disorder Myocardial infarct Non-smoker Noncompliance by declining intervention or support On home oxygen therapy Peripheral vascular occlusive disease Pneumonia Prostate disease Pulmonary nodule, left Recurrent falls Right ankle pain Right foot pain Shortness of breath on exertion Silent aspiration Sleep apnea Tremor Type 2 diabetes mellitus Type 2 diabetes mellitus with diabetic polyneuropathy Ulcer of left foot, limited to breakdown of skin 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 Wears glasses Wound of left lower extremity Home Medications acetaminophen 500 mg tablet 1,000 mg PO QHS PRN PAIN 02/11/21 [History Last Taken 05/24/23] aspirin 81 mg tablet,delayed release (Adult Aspirin Regimen) 81 mg PO DAILY HEART HEALTH 11/05/21 [History Last Taken 05/24/23] spironolactone 25 mg tablet 25 mg PO QHS FLUID 11/08/21 [History Last Taken 08/29/22 22:00] peg [id number] 1 %-0.2 %-0.2 % eye drops (Artificial Tears ([id number])) 2 drp EACH EYE Q1H PRN DRY EYES #0 mL 11/14/21 [Rx Last Taken Unknown] loratadine 10 mg tablet (Allergy Relief (loratadine)) 10 mg PO DAILY ALLERGIES 05/21/22 [History Last Taken 05/24/23] gauze bandage 4 X 4 (Bordered Gauze) #14 ea 07/03/22 [Rx Last Taken Unknown] walker (Ultra-Light Rollator misc) #1 ea 07/21/22 [Rx Last Taken Unknown] insulin lispro 100 unit/mL subcutaneous pen sliding scale dose subcut ACHS DIABETES 08/12/22 [History Last Taken 05/24/23] pen needle, diabetic 33 gauge x 5/16 #200 ea 12/02/22 [Rx Last Taken Unknown] insulin lispro 100 unit/mL subcutaneous pen (Humalog KwikPen (U-100) Insulin) 14 unit (0.14 mL) subcut TIDAC 3 months #37.8 mL 03/04/23 [Rx Last Taken 05/24/23] fluoxetine 20 mg capsule 20 mg PO DAILY ANXIETY 03/23/23 [History Last Taken 05/24/23] melatonin 3 mg tablet 3 mg PO QHS INSOMNIA 03/23/23 [History Last Taken 05/24/23] albuterol sulfate 90 mcg/actuation aerosol inhaler 2 puff inhalation Q4H PRN SHORTNESS OF BREATH/WHEEZING 05/25/23 [History Last Taken Unknown] amlodipine 2.5 mg tablet 2.5 mg PO DAILY BLOOD PRESSURE 05/25/23 [History Last Taken 05/24/23] atorvastatin 80 mg tablet 80 mg PO QHS CHOLESTEROL 05/25/23 [History Last Taken 05/24/23] buspirone 7.5 mg tablet 7.5 mg PO TID ANXIETY 05/25/23 [History Last Taken 05/24/23] carvedilol 12.5 mg tablet 25 mg PO TID HEART 05/25/23 [History Last Taken 05/24/23] clonazepam 1 mg tablet 1 mg PO BID PRN Anxiety 05/25/23 [History Last Taken Unknown] clopidogrel 75 mg tablet 75 mg PO DAILY BLOOD THINNER 05/25/23 [History Last Taken 05/25/23] finasteride 5 mg tablet 5 mg PO DAILY PROSTATE 05/25/23 [History Last Taken 05/24/23] fluoxetine 40 mg capsule 40 mg PO DAILY ANXIETY 05/25/23 [History Last Taken 05/24/23] furosemide 40 mg tablet 40 mg PO DAILY FLUID 05/25/23 [History Last Taken 05/24/23] hydroxyzine HCl 10 mg tablet 10 mg PO TID ANXIETY 05/25/23 [History Last Taken 05/24/23] hydroxyzine HCl 25 mg tablet 25 mg PO QHS PRN ANXIETY 05/25/23 [History Last Taken 05/24/23] insulin detemir U-100 100 unit/mL (3 mL) subcutaneous pen (Levemir FlexPen) 40 unit subcut QHS DIABETES 05/25/23 [History Last Taken 05/24/23] isosorbide mononitrate 30 mg tablet,extended release 24 hr 30 mg PO DAILY HEART 05/25/23 [History Last Taken Unknown] losartan 50 mg tablet 50 mg PO DAILY BLOOD PRESSURE 05/25/23 [History Last Taken 05/24/23] magnesium oxide 400 mg PO DAILY SUPPLEMENT 05/25/23 [History Last Taken 05/24/23] metoclopramide HCl 5 mg tablet 5 mg PO TID NAUSEA/VOMITING 05/25/23 [History Last Taken 05/24/23] nitroglycerin 0.4 mg sublingual tablet 0.4 mg sublingual Q5M PRN CHEST PAIN 05/25/23 [History Last Taken Unknown] nystatin 100,000 unit/gram topical powder ([facility]) 1 applic topical BID SKIN INFECTIONS 05/25/23 [History Last Taken Unknown] pantoprazole 40 mg tablet,delayed release 40 mg PO DAILY ACID REFLUX 05/25/23 [History Last Taken 05/24/23] pregabalin 75 mg capsule (Lyrica) 75 mg PO BID PAIN 05/25/23 [History Last Taken 05/24/23] trazodone 150 mg tablet 150 mg PO QHS INSOMNIA 05/25/23 [History Last Taken 05/24/23] oxycodone 5 mg tablet 5 mg PO Q6H PRN Pain Score 4-10 7 days #28 tabs 05/26/23 [Rx Last Taken Unknown] tizanidine 2 mg tablet 4 mg (2 x 2 mg) PO Q8H PRN PRN Muscle Spasms/Musculoskeletal Pain #15 tabs 05/26/23 [Rx Last Taken Unknown] Allergy/AdvReac Type Severity Reaction Status Date / Time allopurinol AdvReac Vomiting Verified 05/25/23 09:07 Influenza Virus Vaccines AdvReac Vomiting Verified 05/25/23 09:07 pneumococcal vaccine AdvReac Vomiting Verified 05/25/23 09:07 Family History Mother Diabetes Heart disease CHF Father Heart disease OH/CAD Myocardial infarction Surgical History H/O lithotripsy History of angioplasty of peripheral vessel (2016) History of angioplasty of peripheral vessel History of ankle surgery History of cardiac catheterization History of coronary artery stent placement (08/2016) History of coronary artery stent placement History of esophagogastroduodenoscopy (EGD) History of left heart catheterization (11/15/17) History of thyroid surgery Hx of lithotripsy Hx of surgery to heart and great vessels, presenting hazards to health Hx of surgical procedure Hx of thyroidectomy Hx of toe surgery Hx of toe surgery PEG (percutaneous endoscopic gastrostomy) status Social History household members: spouse housing: apartment Smoking Status: Never smoker alcohol intake: never substance use type: does not use ROS Constitutional Constitutional: Denies chills, fever(s), night sweats or weakness Eyes Eyes: Denies diplopia, dry eyes or eye pain ENT HEENT: Denies dysphagia, rhinorrhea or sore throat Cardiovascular Cardiovascular: Denies chest pain, claudication or palpitations Respiratory/Chest Respiratory/Chest: Denies cough, dyspnea or wheezing Gastrointestinal Gastrointestinal: Denies constipation, diarrhea, nausea or vomiting Genitourinary Genitourinary: Denies dysuria, hematuria or urinary urgency Musculoskeletal Musculoskeletal: Denies joint pain, joint stiffness or joint swelling Integumentary Integumentary: Denies lesions, pruritus or rash Neurologic Neurologic: Denies dizziness, numbness or tingling Psychiatric Psychiatric: Reports anxiety and depression Endocrine Endocrinology: Denies cold intolerance or heat intolerance Hematologic/Lymphatic Hematologic/Lymphatic: Denies easy bleeding or easy bruising Allergic/Immunologic Allergic/Immunologic: Denies wheezing Physical Exam Const alert, oriented x3 and no apparent distress General Appearance: cooperative HEENT normocephalic Eyes General Eye: normal appearance of both eyes Neck General: normal visual inspection Lymph Lymphatic: no lymphadenopathy noted and no lymphedema noted Resp normal respiratory effort Cardio regular rate and regular rhythm Extremity normal capillary refill, no joint enlargement, no calf tenderness and no pedal edema Extremity Narrative: DP and PT pulses palpable bilateral with adequate capillary fill time bilateral. Dermatological: There is a plantar ulceration just anterior to the calcaneal tuberosity of the left heel. Ulceration demonstrates mixed fibrogranular layer with some slight maceration periwound secondary to serosanguineous drainage. No erythema, no malodor, no purulent drainage, no palpable fluctuance/bogginess, no visible abscess formation, no lymphangitic streaking. Wound site appears stable. Musculoskeletal: Muscle strength 5 of 5 age-appropriate. Right foot demonstrates long TMA. Skin no rashes or lesions noted, skin turgor normal and no jaundice Neuro moves all extremities Neuro Narrative: Decreased protective sensation to bilateral foot consistent with diabetic peripheral polyneuropathy Lab / Micro Data 05/26/23 06:10 05/26/23 06:10 Labs: Laboratory Results - last 24 hr 05/25/23 12:30: WBC 12.2 H, RBC 4.24 L, Hgb 11.6 L, Hct 37.5 L, MCV 88.4, MCH 27.4, MCHC 30.9 L, RDW Std Deviation 42.5, RDW Coeff of James 13.1, Plt Count 214, MPV 11.1, Immature Gran % (Auto) 0.200, Neut % (Auto) 71.8 H, Lymph % (Auto) 17.1 L, [place] % (Auto) 9.5, Eos % (Auto) 1.0, Baso % (Auto) 0.4, Absolute Neuts (auto) 8.8 H, Absolute Lymphs (auto) 2.09, Nucleated RBC % 0, ESR 33 H, PT Cancelled, INR Cancelled, APTT Cancelled 05/25/23 12:55: Sodium 137, Potassium 4.8, Chloride 104, Carbon Dioxide 32.0, Anion Gap 1 L, BUN 23 H, Creatinine 1.36 H, Estim Creat Clear Calc 56.66, Est GFR (MDRD) Af Amer 68, Est GFR (MDRD) Non-Af 56 L, BUN/Creatinine Ratio 16.9, Glucose 169 H, Calcium 9.5, C-React Prot High Sens 26.20 H 05/25/23 12:57: PT 14.4, INR 1.1, APTT 31.2 05/25/23 14:40: S.aureus Protein A PCR POSITIVE H, MRSA (PCR) Negative 05/25/23 21:40: POC Glucose 155 H 05/26/23 01:40: POC Glucose 168 H 05/26/23 06:10: WBC 8.8, RBC 4.48 L, Hgb 12.3 L, Hct 39.8 L, MCV 88.8, MCH 27.5, MCHC 30.9 L, RDW Std Deviation 41.9, RDW Coeff of James 12.8, Plt Count 211, MPV 10.9, Immature Gran % (Auto) 0.300, Neut % (Auto) 61.7, Lymph % (Auto) 23.3, [place] % (Auto) 10.7 H, Eos % (Auto) 3.4, Baso % (Auto) 0.6, Absolute Neuts (auto) 5.4, Absolute Lymphs (auto) 2.04, Nucleated RBC % 0, Sodium 141, Potassium 3.9, Chloride 107, Carbon Dioxide 29.0, Anion Gap 5, BUN 20 H, Creatinine 1.19, Estim Creat Clear Calc 64.75, Est GFR (MDRD) Af Amer 79, Est GFR (MDRD) Non-Af 65, BUN/Creatinine Ratio 16.8, Glucose 156 H, Calcium 9.4, Phosphorus 3.7, Magnesium 2.5, Total Bilirubin 0.50, AST 15, ALT 14 L, Alkaline Phosphatase 117, Total Protein 7.4, Albumin 2.9 L, Globulin 4.5 H, Albumin/Globulin Ratio 0.6 L Micro: Microbiology 05/25/23 12:30 Wound - Heel, Left Gram Stain - Final Radiology Impression Foot X-Ray 05/25/23 12:00 IMPRESSION: No definite acute abnormality. Electronically Signed: Krish De Jesus MD at 12:28 EDT , Lumbar Spine X-Ray 05/25/23 15:50 IMPRESSION: Lower more than upper lumbar spine degenerative change is similar to 07/04/2022. Electronically Signed: Freddy Dillon MD at 16:11 EDT ,
[2023-05-26 07:57] VITALS: BP 192/88; PULSE 54; RESP 18; TEMP 36.3; O2SAT 100
[2023-05-26 08:02] VITALS: O2SAT 96
[2023-05-26] MEDS: Menthol/Lanolin/Calamine/Znox 113 GM Tube 1 APPLIC TOPICAL (08:02)
[2023-05-26] MEDS: Loratadine 10 MG Tablet PO (08:02)
[2023-05-26] MEDS: amLODIPine 2.5 MG Tablet PO (08:03)
[2023-05-26] MEDS: Furosemide 40 MG Tablet PO (08:03)
[2023-05-26] MEDS: Isosorbide Mononitrate 30 MG Tablet PO (08:03)
[2023-05-26] MEDS: Magnesium Chloride 64 MG Delay Rel.Tablet 128 MG PO (08:03)
[2023-05-26] MEDS: Aspirin E.C. 81 MG Tablet PO (08:04)
[2023-05-26] MEDS: Nystatin Powder 15gm Bottle 1 APPLIC TOPICAL (08:04)
[2023-05-26] MEDS: Clopidogrel Bisulfate 75 MG Tablet PO (08:04)
[2023-05-26] MEDS: Fluoxetine HCl 40 MG CAPSULE PO (08:05)
[2023-05-26] MEDS: FLUoxetine 20 MG Capsule PO (08:05)
[2023-05-26] MEDS: Finasteride 5 MG Tablet PO (08:05)
[2023-05-26] MEDS: Pantoprazole Sodium 40 MG Tablet PO (08:05)
[2023-05-26] MEDS: Pregabalin 75 MG Capsule PO (08:15)
[2023-05-26] MEDS: Losartan Potassium 50 MG Tablet PO (08:15)
[2023-05-26] MEDS: Enoxaparin 40 MG/0.4 ML Syringe SC (08:15)
[2023-05-26] MEDS: Lidocaine 5% Patch 1 PATCH TOPICAL (08:15)
[2023-05-26 08:25] LABS: Bedside Glucose 152 mg/dL (74-106)
[2023-05-26] MEDS: Insulin Lispro 100 UNIT/ML INSULN.PEN 14 UNIT SC ×2 (09:23→11:22)
--- NOTE | 2023-05-26 11:20 | NURSING ---
Okay to use patient ina guerra- Blood glucose-212
[2023-05-26] MEDS: Insulin Lispro 100 UNIT/ML INSULN.PEN SC (11:21)
--- NOTE | 2023-05-26 12:20 | PCM.DC ---
Discharge Instructions Diet Discharge Diet: 1800 Calorie Control Diet Activity Discharge Activity: Return to Normal Activity Weight Bearing Status: Full weight bearing and - (Wear surgical boot on left foot when ambulating) Dressing / Incision Call your doctor if your incision/area has: - (Continue dressing changes as previously carried out at home) Follow Up Care Test Results: Test results from this visit will be discussed in further detail at your follow-up appointment, if applicable. Discharge Plan Admission Admit Date/Time: 05/25/23 13:47 Primary Reason for Your Visit: Low back pain, left foot wound Attending Provider: Rubio Miller Primary Care Provider: Doretha Brown Consulting Providers: Wallace Donnelly; Alicia Larkin Instructions Additional Instructions / Restrictions: Continue to use your oxygen as directed Do not take aspirin on a regular basis for pain Discharge Orders/Prescriptions Prescriptions: New oxycodone 5 mg Tablet 5 mg PO Q6H PRN (Reason: Pain Score 4-10) 7 Days Qty: 28 0RF Rx Instructions: 1 every 6 hours as needed for low back pain tizanidine 2 mg Tablet 4 mg PO Q8H PRN PRN (Reason: Muscle Spasms/Musculoskeletal Pain) Qty: 15 0RF Rx Instructions: 1/2-1 3 times a day as needed for low back pain/spasm Continued aspirin [Adult Aspirin Regimen] 81 mg tablet,delayed release (DR/EC) 81 mg PO DAILY loratadine [Allergy Relief (loratadine)] 10 mg tablet 10 mg PO DAILY (DME) Ultra-Light Rollator Misc See Rx Instructions .Route Qty: 1 2RF Rx Instructions: As directed (DME) pen needle, diabetic 33 gauge x 5/16 needle See Rx Instructions .Route Qty: 200 3RF Rx Instructions: As directed melatonin 3 mg tablet 3 mg PO QHS insulin lispro [Humalog KwikPen Insulin] 100 unit/mL insulin pen 14 unit subcut TIDAC 90 Days Qty: 37.8 2RF fluoxetine 20 mg capsule 20 mg PO DAILY acetaminophen 500 MG tablet 1,000 mg PO QHS PRN (Reason: PAIN ) spironolactone 25 mg tablet 25 mg PO QHS Artificial Tears([id number]) 1-0.2-0.2 % Drops 2 drp EACH EYE Q1H PRN (Reason: DRY EYES) Qty: 0 0RF (DME) gauze bandage [Bordered Gauze] 4 X 4 bandage See Rx Instructions .ROUTE .MEDSUPPLY Qty: 14 2RF Rx Instructions: Daily cleanse left foot wound with soap and water, dry and apply Betadine solution and apply clean dressing insulin lispro 100 unit/mL insulin pen subcut ACHS Patient Comments: INJECT subcuaneously 8-16 units 5 (FIVE) times daily per sliding scale.] losartan 50 mg tablet 50 mg PO DAILY fluoxetine 40 mg capsule 40 mg PO DAILY trazodone 150 mg tablet 150 mg PO QHS hydroxyzine HCl 10 mg tablet 10 mg PO TID Levemir FlexPen 100 unit/mL (3 mL) insulin pen 40 unit SUBCUT QHS magnesium oxide 400 mg magnesium Tablet 400 mg PO DAILY carvedilol 12.5 mg tablet 25 mg PO TID clonazepam 1 mg tablet 1 mg PO BID PRN (Reason: Anxiety) amlodipine 2.5 mg tablet 2.5 mg PO DAILY pantoprazole 40 mg tablet,delayed release (DR/EC) 40 mg PO DAILY buspirone 7.5 mg tablet 7.5 mg PO TID hydroxyzine HCl 25 mg tablet 25 mg PO QHS PRN (Reason: ANXIETY ) pregabalin [Lyrica] 75 mg capsule 75 mg PO BID furosemide 40 mg tablet 40 mg PO DAILY atorvastatin 80 mg tablet 80 mg PO QHS isosorbide mononitrate 30 mg tablet extended release 24 hr 30 mg PO DAILY clopidogrel 75 mg tablet 75 mg PO DAILY metoclopramide HCl 5 mg tablet 5 mg PO TID nitroglycerin 0.4 mg tablet, sublingual 0.4 mg SL Q5M PRN (Reason: CHEST PAIN ) nystatin [Nyamyc] 100,000 unit/gram powder 1 applic topical BID Protocol: *Topical Application Instructions APPLICATION INSTRUCTIONS: to groin albuterol sulfate 90 mcg/actuation HFA aerosol inhaler 2 puff inhalation Q4H PRN (Reason: SHORTNESS OF BREATH/WHEEZING ) Rx Instructions: administer with spacer finasteride 5 mg tablet 5 mg PO DAILY Referrals / Follow Up: Jason Hess DPM [[facility] Staff - Active Staff] - See Referral Note (As scheduled, the office will call you to confirm your appointment) Doretha Brown MD [Primary Care Provider] - Disposition Disposition (needs filled in before D/C Order can be placed): Home, Self Care
--- NOTE | 2023-05-26 12:43 | DS.PCM_ITS ---
Providers Date of Admission: 05/25/23 Date of Discharge: 05/26/23 Primary Care Physician: Dr. 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 2 diabetes, felt to be noninfected #3 type 2 diabetes #4 diabetic neuropathy #5 chronic hypoxic respiratory failure #6 morbid obesity Medications at Discharge Home Medications acetaminophen 500 mg tablet 1,000 mg PO QHS PRN PAIN 02/11/21 aspirin 81 mg tablet,delayed release (Adult Aspirin Regimen) 81 mg PO DAILY HEART HEALTH 11/05/21 spironolactone 25 mg tablet 25 mg PO QHS FLUID 11/08/21 peg [id number] 1 %-0.2 %-0.2 % eye drops (Artificial Tears ([id number])) 2 drp EACH EYE Q1H PRN DRY EYES #0 mL 11/14/21 loratadine 10 mg tablet (Allergy Relief (loratadine)) 10 mg PO DAILY ALLERGIES 05/21/22 gauze bandage 4 X 4 (Bordered Gauze) #14 ea 07/03/22 walker (Ultra-Light Rollator misc) #1 ea 07/21/22 insulin lispro 100 unit/mL subcutaneous pen sliding scale dose subcut ACHS DIABETES 08/12/22 pen needle, diabetic 33 gauge x 5/16 #200 ea 12/02/22 insulin lispro 100 unit/mL subcutaneous pen (Humalog KwikPen (U-100) Insulin) 14 unit (0.14 mL) subcut TIDAC 3 months #37.8 mL 03/04/23 fluoxetine 20 mg capsule 20 mg PO DAILY ANXIETY 03/23/23 melatonin 3 mg tablet 3 mg PO QHS INSOMNIA 03/23/23 albuterol sulfate 90 mcg/actuation aerosol inhaler 2 puff inhalation Q4H PRN SHORTNESS OF BREATH/WHEEZING 05/25/23 amlodipine 2.5 mg tablet 2.5 mg PO DAILY BLOOD PRESSURE 05/25/23 atorvastatin 80 mg tablet 80 mg PO QHS CHOLESTEROL 05/25/23 buspirone 7.5 mg tablet 7.5 mg PO TID ANXIETY 05/25/23 carvedilol 12.5 mg tablet 25 mg PO TID HEART 05/25/23 clonazepam 1 mg tablet 1 mg PO BID PRN Anxiety 05/25/23 clopidogrel 75 mg tablet 75 mg PO DAILY BLOOD THINNER 05/25/23 finasteride 5 mg tablet 5 mg PO DAILY PROSTATE 05/25/23 fluoxetine 40 mg capsule 40 mg PO DAILY ANXIETY 05/25/23 furosemide 40 mg tablet 40 mg PO DAILY FLUID 05/25/23 hydroxyzine HCl 10 mg tablet 10 mg PO TID ANXIETY 05/25/23 hydroxyzine HCl 25 mg tablet 25 mg PO QHS PRN ANXIETY 05/25/23 insulin detemir U-100 100 unit/mL (3 mL) subcutaneous pen (Levemir FlexPen) 40 unit subcut QHS DIABETES 05/25/23 isosorbide mononitrate 30 mg tablet,extended release 24 hr 30 mg PO DAILY HEART 05/25/23 losartan 50 mg tablet 50 mg PO DAILY BLOOD PRESSURE 05/25/23 magnesium oxide 400 mg PO DAILY SUPPLEMENT 05/25/23 metoclopramide HCl 5 mg tablet 5 mg PO TID NAUSEA/VOMITING 05/25/23 nitroglycerin 0.4 mg sublingual tablet 0.4 mg sublingual Q5M PRN CHEST PAIN 05/25/23 nystatin 100,000 unit/gram topical powder (Nyamy) 1 applic topical BID SKIN INFECTIONS 05/25/23 pantoprazole 40 mg tablet,delayed release 40 mg PO DAILY ACID REFLUX 05/25/23 pregabalin 75 mg capsule (Lyrica) 75 mg PO BID PAIN 05/25/23 trazodone 150 mg tablet 150 mg PO QHS INSOMNIA 05/25/23 oxycodone 5 mg tablet 5 mg PO Q6H PRN Pain Score 4-10 7 days #28 tabs 05/26/23 tizanidine 2 mg tablet 4 mg (2 x 2 mg) PO Q8H PRN PRN Muscle Spasms/Musculoskeletal Pain #15 tabs 05/26/23 Hospital Course Operations None Procedures None Summary of Care Provided Minutes Spent on Discharge: 32 Hospital Course: This 63-year-old white male was seen in the emergency room at [facility] with complaints of increasing low back pain, patient denies any trauma, he states symptoms have been going on a couple of days. Patient mentioned during his examination in the emergency room that he was dealing with a left heel ulceration that was chronic. Work-up in the emergency room included a CBC which showed a slightly elevated white blood cell count of 12.2, chemistry panel revealed a creatinine of 1.36 and a BUN of 23. Patient's blood sugar was elevated at 169, x-ray of the left foot revealed no definite acute abnormality. Patient was admitted to [place] [id number] for low back pain and suspected worsening left foot neuropathic ulcer, he was placed on IV antibiotics, he was seen in consultation by podiatry and the wound nurse. Patient was placed on a Lidoderm patch, patient's pain seem to improve. It was not felt that the patient had acute infection of his left foot ulceration, it was not recommended that he be on any antibiotics for this. On 05/26/2023, patient was seen and examined: On examination he appeared in good health and spirits. Vital signs as documented. Skin warm and dry and without overt rashes. Neck without JVD, neck was supple, trachea midline, thyroid was normal. Lungs clear bilaterally, normal air movement was noted. Heart exam notable for regular rhythm, normal sounds and absence of murmurs, rubs or gallops. Abdomen unremarkable and without evidence of organomegaly, masses, or abdominal aortic enlargement. Bowel sounds are present, abdomen is not distended. Extremities-there is noted to be an ulceration of the plantar aspect of the left heel proximally, the wound was approximately 3 cm x 3 cm. Neuro: Cranial nerves II through XII are grossly intact, no focal motor deficits were noted, there was decreased sensation to light touch in the feet, motor exam 5/5 throughout. Psych: Patient is alert and oriented x3, he does not appear anxious or depressed, he does not appear agitated. Patient appears stable for discharge home on 05/26/2023. Weight / BMI Weight Weight: 126.416 kg Body Mass Index (BMI) 39.9 ABG / Lab / Microbiology Data 05/26/23 06:10 05/26/23 06:10 Laboratory: Laboratory Results - last 24 hr 05/25/23 12:30: WBC 12.2 H, RBC 4.24 L, Hgb 11.6 L, Hct 37.5 L, MCV 88.4, MCH 27.4, MCHC 30.9 L, RDW Std Deviation 42.5, RDW Coeff of James 13.1, Plt Count 214, MPV 11.1, Immature Gran % (Auto) 0.200, Neut % (Auto) 71.8 H, Lymph % (Auto) 17.1 L, Bennett % (Auto) 9.5, Eos % (Auto) 1.0, Baso % (Auto) 0.4, Absolute Neuts (auto) 8.8 H, Absolute Lymphs (auto) 2.09, Nucleated RBC % 0, ESR 33 H, PT Cancelled, INR Cancelled, APTT Cancelled 05/25/23 12:55: Sodium 137, Potassium 4.8, Chloride 104, Carbon Dioxide 32.0, Anion Gap 1 L, BUN 23 H, Creatinine 1.36 H, Estim Creat Clear Calc 56.66, Est GFR (MDRD) Af Amer 68, Est GFR (MDRD) Non-Af 56 L, BUN/Creatinine Ratio 16.9, Glucose 169 H, Calcium 9.5, C-React Prot High Sens 26.20 H 05/25/23 12:57: PT 14.4, INR 1.1, APTT 31.2 05/25/23 14:40: S.aureus Protein A PCR POSITIVE H, MRSA (PCR) Negative 05/25/23 21:40: POC Glucose 155 H 05/26/23 01:40: POC Glucose 168 H 05/26/23 06:10: WBC 8.8, RBC 4.48 L, Hgb 12.3 L, Hct 39.8 L, MCV 88.8, MCH 27.5, MCHC 30.9 L, RDW Std Deviation 41.9, RDW Coeff of James 12.8, Plt Count 211, MPV 10.9, Immature Gran % (Auto) 0.300, Neut % (Auto) 61.7, Lymph % (Auto) 23.3, Bennett % (Auto) 10.7 H, Eos % (Auto) 3.4, Baso % (Auto) 0.6, Absolute Neuts (auto) 5.4, Absolute Lymphs (auto) 2.04, Nucleated RBC % 0, Sodium 141, Potassium 3.9, Chloride 107, Carbon Dioxide 29.0, Anion Gap 5, BUN 20 H, Creatinine 1.19, Estim Creat Clear Calc 64.75, Est GFR (MDRD) Af Amer 79, Est GFR (MDRD) Non-Af 65, BUN/Creatinine Ratio 16.8, Glucose 156 H, Calcium 9.4, Phosphorus 3.7, Magnesium 2.5, Total Bilirubin 0.50, AST 15, ALT 14 L, Alkaline Phosphatase 117, Total Protein 7.4, Albumin 2.9 L, Globulin 4.5 H, Albumin/Globulin Ratio 0.6 L 05/26/23 07:53: POC Glucose 152 H Microbiology: Microbiology 05/25/23 12:30 Wound - Heel, Left Gram Stain - Final 05/25/23 12:30 Wound - Heel, Left Wound Culture - Preliminary Gram negative estelle Staphylococcus aureus Radiography Diagnostic Testing: Radiology Impression Lumbar Spine X-Ray 05/25/23 15:50 IMPRESSION: Lower more than upper lumbar spine degenerative change is similar to 07/04/2022. Electronically Signed: Freddy Dillon MD at 16:11 EDT Reading Location ID and State: [facility] / [place] Tel , Service support , D/C Instructions Discharge Diet: 1800 Calorie Control Diet Weight Bearing Status: Full weight bearing and - (Wear surgical boot on left foot when ambulating) Call your doctor if your incision/area has: - (Continue dressing changes as p reviously carried out at home) Meaningful Use Info Meaningful Use Diagnoses (Choose all that apply): None applicable Discharge Plan Admission Admit Date/Time: 05/25/23 13:47 Primary Reason for Your Visit: Low back pain, left foot wound Attending Provider: Rubio Miller Primary Care Provider: Doretha Brown Consulting Providers: Wallace Donnelly; Alicia Larkin Instructions Additional Instructions / Restrictions: Continue to use your oxygen as directed Do not take aspirin on a regular basis for pain Discharge Orders/Prescriptions Prescriptions: New oxycodone 5 mg Tablet 5 mg PO Q6H PRN (Reason: Pain Score 4-10) 7 Days Qty: 28 0RF Rx Instructions: 1 every 6 hours as needed for low back pain tizanidine 2 mg Tablet 4 mg PO Q8H PRN PRN (Reason: Muscle Spasms/Musculoskeletal Pain) Qty: 15 0RF Rx Instructions: 1/2-1 3 times a day as needed for low back pain/spasm Continued aspirin [Adult Aspirin Regimen] 81 mg tablet,delayed release (DR/EC) 81 mg PO DAILY loratadine [Allergy Relief (loratadine)] 10 mg tablet 10 mg PO DAILY (DME) Ultra-Light Rollator Misc See Rx Instructions .Route Qty: 1 2RF Rx Instructions: As directed (DME) pen needle, diabetic 33 gauge x 5/16 needle See Rx Instructions .Route Qty: 200 3RF Rx Instructions: As directed melatonin 3 mg tablet 3 mg PO QHS insulin lispro [Humalog KwikPen Insulin] 100 unit/mL insulin pen 14 unit subcut TIDAC 90 Days Qty: 37.8 2RF fluoxetine 20 mg capsule 20 mg PO DAILY acetaminophen 500 MG tablet 1,000 mg PO QHS PRN (Reason: PAIN ) spironolactone 25 mg tablet 25 mg PO QHS Artificial Tears([id number]) 1-0.2-0.2 % Drops 2 drp EACH EYE Q1H PRN (Reason: DRY EYES) Qty: 0 0RF (DME) gauze bandage [Bordered Gauze] 4 X 4 bandage See Rx Instructions .ROUTE .MEDSUPPLY Qty: 14 2RF Rx Instructions: Daily cleanse left foot wound with soap and water, dry and apply Betadine solution and apply clean dressing insulin lispro 100 unit/mL insulin pen subcut ACHS Patient Comments: INJECT subcuaneously 8-16 units 5 (FIVE) times daily per sliding scale.] losartan 50 mg tablet 50 mg PO DAILY fluoxetine 40 mg capsule 40 mg PO DAILY trazodone 150 mg tablet 150 mg PO QHS hydroxyzine HCl 10 mg tablet 10 mg PO TID Levemir FlexPen 100 unit/mL (3 mL) insulin pen 40 unit SUBCUT QHS magnesium oxide 400 mg magnesium Tablet 400 mg PO DAILY carvedilol 12.5 mg tablet 25 mg PO TID clonazepam 1 mg tablet 1 mg PO BID PRN (Reason: Anxiety) amlodipine 2.5 mg tablet 2.5 mg PO DAILY pantoprazole 40 mg tablet,delayed release (DR/EC) 40 mg PO DAILY buspirone 7.5 mg tablet 7.5 mg PO TID hydroxyzine HCl 25 mg tablet 25 mg PO QHS PRN (Reason: ANXIETY ) pregabalin [Lyrica] 75 mg capsule 75 mg PO BID furosemide 40 mg tablet 40 mg PO DAILY atorvastatin 80 mg tablet 80 mg PO QHS isosorbide mononitrate 30 mg tablet extended release 24 hr 30 mg PO DAILY clopidogrel 75 mg tablet 75 mg PO DAILY metoclopramide HCl 5 mg tablet 5 mg PO TID nitroglycerin 0.4 mg tablet, sublingual 0.4 mg SL Q5M PRN (Reason: CHEST PAIN ) nystatin [Nyamyc] 100,000 unit/gram powder 1 applic topical BID Protocol: *Topical Application Instructions APPLICATION INSTRUCTIONS: to groin albuterol sulfate 90 mcg/actuation HFA aerosol inhaler 2 puff inhalation Q4H PRN (Reason: SHORTNESS OF BREATH/WHEEZING ) Rx Instructions: administer with spacer finasteride 5 mg tablet 5 mg PO DAILY Referrals / Follow Up: Jason Hess DPM [Med Staff - Active Staff] - See Referral Note (As scheduled, the office will call you to confirm your appointment) Doretha Brown MD [Primary Care Provider] - Disposition Disposition (needs filled in before D/C Order can be placed): Home, Self Care Charges/Coding Visit Charges Inpatient E&M: 64421 Disch Hosp >30min
--- NOTE | 2023-05-26 13:02 | CASEMGMT ---
Discharge Planning HH referral sent to [facility] via [facility]. Nuria Singh, Dicharge Planning Asst.
--- NOTE | 2023-05-26 13:08 | CASEMGMT ---
Social Work Per physician, pt is ready for discharge. RICO met with pt to discuss discharge plan. Pt continues to deny need for home health or SNF. Pt states he goes to Dr. Julian's office approximately every two weeks and foot wound is examined and dressing is changed. Pt's significant other changes the dressing daily and feels this is going well. Pt denies any other needs. Pt is current with [facility]. R[facility] faxed discharge instructions to CM. Tere Hannah LSW
[2023-05-26 14:11] VITALS: BP 97/55; PULSE 54; RESP 18; TEMP 36.8; O2SAT 100
--- NOTE | 2023-05-26 15:03 | CHAPLAIN ---
Type of Pastoral Visit _x__ Initial Visit ___ Follow-up Visit ___ On-call Visit ___ General Patient Visit ___ Spiritual Assessment ___ Family Conference ___ Bereavement ___ Rapid Response ___ Code Blue ___ Other (describe below) Pastoral Care Referral From _x__ Patient ___ Family ___ Nurse ___ Physician ___ Roll Clamp Operator ___ Bundler ___ Other (describe below) Sacrament/Intervention _x__ Active listening ___ Anointing ___ Yazidi ___ Bereavement ___ Communion ___ Sarai exploration ___ ___ Life review _x__ Prayer ___ Reconciliation ___ Sacrament of Sick _x__ Supportive presence ___ Wedding ___ Other (describe below) Pastoral Comments patient gives update on his life and health since last seen in the hospital; pt speaks of good care from his SO with whom he has been with for seven years; pt reports that overall he is doing well and just wants to go home; pt asks for prayer as that is what is needed anytime; prayer and presence given
== END 2023-05-26 15:45 | disposition home or self-care (01) | DRG 623 ==
LOC: ED 09:41 → MS3 14:03
PROVIDERS: Admitting Provider Internal Medicine; Emergency Provider Emergency Medicine; PCP Internal Medicine; Visit Provider Internal Medicine
DX: E11.621 Type 2 diabetes mellitus with foot ulcer (principal); J96.11 Chronic respiratory failure with hypoxia; I13.0 Hypertensive heart and chronic kidney disease with heart failure and stage 1 through stage 4 chronic kidney disease, or unspecified chronic kidney disease; I50.32 Chronic diastolic (congestive) heart failure; Z68.41 Body mass index [BMI] 40.0-44.9, adult; L97.429 Non-pressure chronic ulcer of left heel and midfoot with unspecified severity; E11.22 Type 2 diabetes mellitus with diabetic chronic kidney disease; E11.51 Type 2 diabetes mellitus with diabetic peripheral angiopathy without gangrene; E11.42 Type 2 diabetes mellitus with diabetic polyneuropathy; N18.30 Chronic kidney disease, stage 3 unspecified; Z79.4 Long term (current) use of insulin; J44.9 Chronic obstructive pulmonary disease, unspecified; E11.43 Type 2 diabetes mellitus with diabetic autonomic (poly)neuropathy; E66.01 Morbid (severe) obesity due to excess calories; E11.65 Type 2 diabetes mellitus with hyperglycemia; L97.522 Non-pressure chronic ulcer of other part of left foot with fat layer exposed; K21.9 Gastro-esophageal reflux disease without esophagitis; E78.00 Pure hypercholesterolemia, unspecified; I25.10 Atherosclerotic heart disease of native coronary artery without angina pectoris; M47.816 Spondylosis without myelopathy or radiculopathy, lumbar region; Z95.5 Presence of coronary angioplasty implant and graft; Z79.82 Long term (current) use of aspirin; Z86.14 Personal history of Methicillin resistant Staphylococcus aureus infection
CPT/HCPCS: 36415; 72100; 73630; 80048; 80053; 82962; 83735; 84100; 85025; 85610; 85652; 85730; 86141; 87040; 87070; 87075; 87077; 87186; 87205; 87640; 94668; 97162; 97166; 97802; 99252; 99285; J7040; J7050; A4216; G0463

== ENCOUNTER 2023-06-01 19:34 | Emergency (ER) | payer MEDICARE, MEDICAID, SELFPAY ==
[2023-06-01 19:38] VITALS: BP 124/67; PULSE 69; RESP 19; TEMP 36.6; O2SAT 100
--- NOTE | 2023-06-01 20:03 | EX.ED.DYSGE1 ---
HPI History of Present Illness Chief Complaint: Weakness [facility] Medical History Ambulates with cane Amputation of one or more toes Anxiety Anxiety and depression Arrhythmia Arthritis Aspiration into airway Aspiration pneumonia Atherosclerotic heart disease of [place] coronary artery without angina pectoris Bilateral leg weakness Blind left eye Blister (nonthermal), left foot, initial encounter Bronchiectasis with (acute) exacerbation Cardiology follow-up encounter Chronic cough Chronic respiratory failure with hypoxia COPD (chronic obstructive pulmonary disease) CPAP (continuous positive airway pressure) dependence Debility, unspecified Depression Diabetes Essential hypertension Gastric reflux GERD (gastroesophageal reflux disease) High cholesterol History of aspiration pneumonia History of diabetes mellitus History of echocardiogram History of edema History of gout History of heart attack History of non-ST elevation myocardial infarction (NSTEMI) (08/2016) History of pain when walking History of steroid therapy History of stress test Hyperglycemia due to type 2 diabetes mellitus Hypertension Insulin dependent diabetes mellitus Kidney disease Kidney stones Kidney stones Leg pain, right Leukocytosis Low back pain Memory impairment Migraines Mood disorder Myocardial infarct Non-smoker Noncompliance by declining intervention or support On home oxygen therapy Peripheral vascular occlusive disease Pneumonia Prostate disease Pulmonary nodule, left Recurrent falls Right ankle pain Right foot pain Shortness of breath on exertion Silent aspiration Sleep apnea Tremor Type 2 diabetes mellitus Type 2 diabetes mellitus with diabetic polyneuropathy Ulcer of left foot, limited to breakdown of skin 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 Wears glasses Wound of left lower extremity Home Medications acetaminophen 500 mg tablet 1,000 mg PO QHS PRN PAIN 02/11/21 [History Last Taken 05/24/23] aspirin 81 mg tablet,delayed release (Adult Aspirin Regimen) 81 mg PO DAILY HEART HEALTH 11/05/21 [History Last Taken 05/24/23] spironolactone 25 mg tablet 25 mg PO QHS FLUID 11/08/21 [History Last Taken 08/29/22 22:00] peg [id number] 1 %-0.2 %-0.2 % eye drops (Artificial Tears ([id number])) 2 drp EACH EYE Q1H PRN DRY EYES #0 mL 11/14/21 [Rx Last Taken Unknown] loratadine 10 mg tablet (Allergy Relief (loratadine)) 10 mg PO DAILY ALLERGIES 06/23/22 [History Last Taken 05/24/23] gauze bandage 4 X 4 (Bordered Gauze) #14 ea 07/03/22 [Rx Last Taken Unknown] walker (Ultra-Light Rollator misc) #1 ea 07/21/22 [Rx Last Taken Unknown] insulin lispro 100 unit/mL subcutaneous pen sliding scale dose subcut ACHS DIABETES 08/12/22 [History Last Taken 05/24/23] pen needle, diabetic 33 gauge x 5/16 #200 ea 12/02/22 [Rx Last Taken Unknown] insulin lispro 100 unit/mL subcutaneous pen (Humalog KwikPen (U-100) Insulin) 14 unit (0.14 mL) subcut TIDAC 3 months #37.8 mL 03/04/23 [Rx Last Taken 05/24/23] fluoxetine 20 mg capsule 20 mg PO DAILY ANXIETY 03/23/23 [History Last Taken 05/24/23] melatonin 3 mg tablet 3 mg PO QHS INSOMNIA 03/23/23 [History Last Taken 05/24/23] albuterol sulfate 90 mcg/actuation aerosol inhaler 2 puff inhalation Q4H PRN SHORTNESS OF BREATH/WHEEZING 05/25/23 [History Last Taken Unknown] amlodipine 2.5 mg tablet 2.5 mg PO DAILY BLOOD PRESSURE 05/25/23 [History Last Taken 05/24/23] atorvastatin 80 mg tablet 80 mg PO QHS CHOLESTEROL 05/25/23 [History Last Taken 05/24/23] buspirone 7.5 mg tablet 7.5 mg PO TID ANXIETY 05/25/23 [History Last Taken 05/24/23] carvedilol 12.5 mg tablet 25 mg PO TID HEART 05/25/23 [History Last Taken 05/24/23] clonazepam 1 mg tablet 1 mg PO BID PRN Anxiety 05/25/23 [History Last Taken Unknown] finasteride 5 mg tablet 5 mg PO DAILY PROSTATE 05/25/23 [History Last Taken 05/24/23] fluoxetine 40 mg capsule 40 mg PO DAILY ANXIETY 05/25/23 [History Last Taken 05/24/23] furosemide 40 mg tablet 40 mg PO DAILY FLUID 05/25/23 [History Last Taken 05/24/23] hydroxyzine HCl 10 mg tablet 10 mg PO TID ANXIETY 05/25/23 [History Last Taken 05/24/23] hydroxyzine HCl 25 mg tablet 25 mg PO QHS PRN ANXIETY 05/25/23 [History Last Taken 05/24/23] insulin detemir U-100 100 unit/mL (3 mL) subcutaneous pen (Levemir FlexPen) 40 unit subcut QHS DIABETES 05/25/23 [History Last Taken 05/24/23] losartan 50 mg tablet 50 mg PO DAILY BLOOD PRESSURE 05/25/23 [History Last Taken 05/24/23] magnesium oxide 400 mg PO DAILY SUPPLEMENT 05/25/23 [History Last Taken 05/24/23] metoclopramide HCl 5 mg tablet 5 mg PO TID NAUSEA/VOMITING 05/25/23 [History Last Taken 05/24/23] nitroglycerin 0.4 mg sublingual tablet 0.4 mg sublingual Q5M PRN CHEST PAIN 05/25/23 [History Last Taken Unknown] nystatin 100,000 unit/gram topical powder (Nyamyc) 1 applic topical BID SKIN INFECTIONS 05/25/23 [History Last Taken Unknown] pantoprazole 40 mg tablet,delayed release 40 mg PO DAILY ACID REFLUX 05/25/23 [History Last Taken 05/24/23] trazodone 150 mg tablet 150 mg PO QHS INSOMNIA 05/25/23 [History Last Taken 05/24/23] oxycodone 5 mg tablet 5 mg PO Q6H PRN Pain Score 4-10 7 days #28 tabs 05/26/23 [Rx Last Taken Unknown] tizanidine 2 mg tablet 4 mg (2 x 2 mg) PO Q8H PRN PRN Muscle Spasms/Musculoskeletal Pain #15 tabs 05/26/23 [Rx Last Taken Unknown] clopidogrel 75 mg tablet 75 mg PO DAILY BLOOD THINNER #30 tabs 05/28/23 [Rx Last Taken Unknown] isosorbide mononitrate 30 mg tablet,extended release 24 hr 30 mg PO DAILY HEART #30 tabs 05/28/23 [Rx Last Taken Unknown] pregabalin 75 mg capsule (Lyrica) 75 mg PO BID PAIN #60 caps 05/28/23 [Rx Last Taken Unknown] sulfamethoxazole 800 mg-trimethoprim 160 mg tablet (Bactrim DS) 1 tab PO BID 7 days #14 tabs 06/01/23 [Rx Last Taken Unknown] Allergy/AdvReac Type Severity Reaction Status Date / Time allopurinol AdvReac Vomiting Verified 05/25/23 09:07 Influenza Virus Vaccines AdvReac Vomiting Verified 05/25/23 09:07 pneumococcal vaccine AdvReac Vomiting Verified 05/25/23 09:07 Family History Mother Diabetes Heart disease CHF Father Heart disease MD/CAD Myocardial infarction Surgical History H/O lithotripsy History of angioplasty of peripheral vessel (2016) History of angioplasty of peripheral vessel History of ankle surgery History of cardiac catheterization History of coronary artery stent placement (08/2016) History of coronary artery stent placement History of esophagogastroduodenoscopy (EGD) History of left heart catheterization (11/15/17) History of thyroid surgery Hx of lithotripsy Hx of surgery to heart and great vessels, presenting hazards to health Hx of surgical procedure Hx of thyroidectomy Hx of toe surgery Hx of toe surgery PEG (percutaneous endoscopic gastrostomy) status Social History household members: spouse housing: apartment Smoking Status: Never smoker alcohol intake: never substance use type: does not use EXAM Physical Exam Const Vital Signs: 06/01/23 19:38 06/01/23 19:40 06/01/23 22:23 Temperature 97.9 F 97.9 F Temperature Source Oral Oral Pulse Rate 69 74 Respiratory Rate 19 H 19 H Respiratory Effort Normal Respiratory Pattern Normal Blood Pressure 124/67 H 145/82 H Blood Pressure Mean 86 103 Pulse Ox 100 99 Oxygen Delivery Method Nasal Cannula Nasal Cannula Oxygen Flow Rate (L/min) 4 4 MDM MDM MDM Narrative Medical decision making narrative: HISTORY OF PRESENT ILLNESS: 63-year-old male here with falls x2 today. Notes as he rises from a seated position his legs just give out on him. He is concerned that he is not able to take care of himself at home. He denies any chest pain, shortness of breath, bleeding diathesis. REVIEW OF SYSTEMS: Pertinent positives: Diffuse weakness, Pertinent negatives: Chest pain, shortness of breath, bleeding diathesis, urinary complaints PHYSICAL EXAM: Nursing triage notes reviewed, Vital signs reviewed Constitutional: please see mdm HENT: MMM Eyes: Pupils equal round and reactive to light, Extraocular muscles intact Neck: No stridor, no JVD, full neck ROM Lungs: Clear to auscultation, No wheezing or rales. No increased work of breathing, no conversational dyspnea, no accessory muscle use, no nasal flaring. No respiratory distress noted Heart: Regular rate and rhythm, No murmurs, No rubs and No gallops, 2+ distal pulses (radial, femoral, posterior tibial) in all extremities Abdomen: Soft, there is no tenderness, rigidity, rebound or guarding, no obvious peritoneal signs, no palpable pulsatile abdominal masses, no auscultated abdominal bruit : No CVAT Extremities: No edema Neuro: No focal neurological deficits, cranial nerves II through XII intact, 5/5 strength in all extremities. Intact sensation to light touch in all extremities, 2+ reflexes bilateral patella tendons. No obvious ataxia in upper or lower extremities. Unable to assess gait given acuity of condition. Skin: Ulceration, erythema noted to the left heel, purulent discharge, no crepitus or bullae noted MEDICAL DECISION MAKING: Chief Complaint: Falls, weakness External records reviewed: Recently discharged 1 week ago after work-up for diabetic foot ulcer. During his work-up he underwent podiatry consultation. Factors affecting care: Type 2 diabetes Social determinants of health: Elderly, poor health literacy History obtained from others: The patient's Consults: none ALL IMAGES (IF OBTAINED) HAVE BEEN PERSONALLY REVIEWED AND INTERPRETED BY MYSELF. EKG with normal sinus rhythm, left axis deviation, prolonged SD interval, prolonged QT interval, first-degree AV block, no obvious STEMI CBC with leukocytosis similar to prior studies, mild anemia similar to prior studies, no thrombocytopenia BMP without significant electrolyte baseline renal function, hyperglycemia Troponin is negative, no evidence of myocardial ischemia BNP within normal limits making CHF less likely Urinalysis shows no evidence of urinary inflammation suggestive of UTI MDM Narrative: The patient was hemodynamically stable, afebrile, nontoxic-appearing. No focal neurologic deficits. Left lower extremity had a purulent ulceration to the heel. I considered the following differential diagnosis: Arrhythmia, ACS, heart failure, dehydration, electrolyte abnormality, significant anemia, infection I obtained a broad lab and imaging work-up to further elucidate etiology the patient complaints. Labs images remarkable for no evidence of osteomyelitis, pneumonia. There was mild leukocytosis consistent with systemic inflammation, no significant anemia, electrolyte abnormalities, dehydration, myocardial ischemia, UTI, or evidence of heart failure. Suspect patient's presentation may be secondary to left heel cellulitis which may cause weakness as well as leukocytosis. We discussed at length if the patient felt comfortable going home given his multiple falls, diffuse weakness. I offered hospitalization for possible placement in rehab facility or [place] [facility] [place]. Patient vehemently denied wanting to be placed in a [place] or wanting rehabilitation at this time. Patient stated he did not want IVs he stated he did not want to be admitted. He was alert and orient x3 and had capacity to make his own medical decisions. He chose to be discharged home. Patient was given Bactrim for antimicrobial prophylaxis. The patient and/or family, caregivers express understanding. The patient and/or family, caregivers agrees with the plan. Total critical care time today provided was at least 0 minutes. This excludes separately billable procedures. Critical care time (if documented) is secondary to the patient having high probability of clinically significant/life threatening deterioration in the patient's condition which required my urgent intervention. Shared decision making: I will have a discussion with the patient and or visitors regarding risk/benefits of further testing or admission. They will be made aware of of the risk/benefits inherent in this decision they will be given the opportunity to voice understanding. Lab Data Labs: Laboratory Results - last 24 hr 06/01/23 06/01/23 21:51 22:25 WBC 11.9 H RBC 4.41 L Hgb 12.3 L Hct 37.9 L MCV 85.9 MCH 27.9 MCHC 32.5 RDW Std Deviation 40.6 RDW Coeff of James 13.0 Plt Count 233 MPV 10.2 Immature Gran % (Auto) 0.500 Neut % (Auto) 79.1 H Lymph % (Auto) 12.2 L [place] % (Auto) 7.7 Eos % (Auto) 0.2 Baso % (Auto) 0.3 Absolute Neuts (auto) 9.5 H Absolute Lymphs (auto) 1.46 Nucleated RBC % 0 Sodium 139 Potassium 4.0 Chloride 103 Carbon Dioxide 33.0 H Anion Gap 3 L BUN 18 Creatinine 1.31 H Est GFR (MDRD) Af Amer 71 Est GFR (MDRD) Non-Af 59 L BUN/Creatinine Ratio 13.7 Glucose 263 H Calcium 9.5 Troponin I High Sens 17 B-Natriuretic Peptide 81.3 Urine Color Yellow Urine Clarity Clear Urine pH 6.0 Ur Specific [place] 1.015 Urine Protein 30 H Urine Glucose (UA) 100 H Urine Ketones Negative Urine Occult Blood Negative Urine Nitrite Negative Urine Bilirubin Negative Urine Urobilinogen 1 H Ur Leukocyte Esterase Negative Urine RBC 0-5 SEEN Urine WBC 0 SEEN Ur Squamous Epith Cells 0 SEEN Urine Bacteria 0 SEEN Urine Mucus 0 SEEN Radiography Diagnostic Testing: Clinical Impression(s) from Imaging Studies Foot X-Ray 06/01/23 20:43 IMPRESSION: No findings of osteomyelitis identified. Electronically Signed: Andrzej Calles MD at 23:37 EDT , Chest X-Ray 06/01/23 22:47 IMPRESSION: No significant interval change or acute process. Electronically Signed: Andrzej Calles MD at 23:40 EDT , Discharge Plan Triage Chief Complaint: Weakness ED Provider: Reno Clark Dx/Rx/DC Orders Clinical Impression: Cellulitis, Weakness Instructions: ED Cellulitis Prescriptions: New sulfamethoxazole-trimethoprim [Bactrim DS] 800-160 mg tablet 1 tab PO BID 7 Days Qty: 14 0RF No Action aspirin [Adult Aspirin Regimen] 81 mg tablet,delayed release (DR/EC) 81 mg PO DAILY loratadine [Allergy Relief (loratadine)] 10 mg tablet 10 mg PO DAILY (DME) Ultra-Light Rollator Misc See Rx Instructions .Route Qty: 1 2RF Rx Instructions: As directed (DME) pen needle, diabetic 33 gauge x 5/16 needle See Rx Instructions .Route Qty: 200 3RF Rx Instructions: As directed melatonin 3 mg tablet 3 mg PO QHS insulin lispro [Humalog KwikPen Insulin] 100 unit/mL insulin pen 14 unit subcut TIDAC 90 Days Qty: 37.8 2RF fluoxetine 20 mg capsule 20 mg PO DAILY acetaminophen 500 MG tablet 1,000 mg PO QHS PRN (Reason: PAIN ) spironolactone 25 mg tablet 25 mg PO QHS Artificial Tears([id number]) 1-0.2-0.2 % Drops 2 drp EACH EYE Q1H PRN (Reason: DRY EYES) Qty: 0 0RF (DME) gauze bandage [Bordered Gauze] 4 X 4 bandage See Rx Instructions .ROUTE .MEDSUPPLY Qty: 14 2RF Rx Instructions: Daily cleanse left foot wound with soap and water, dry and apply Betadine solution and apply clean dressing insulin lispro 100 unit/mL insulin pen subcut ACHS Patient Comments: INJECT subcuaneously 8-16 units 5 (FIVE) times daily per sliding scale.] losartan 50 mg tablet 50 mg PO DAILY fluoxetine 40 mg capsule 40 mg PO DAILY trazodone 150 mg tablet 150 mg PO QHS hydroxyzine HCl 10 mg tablet 10 mg PO TID Levemir FlexPen 100 unit/mL (3 mL) insulin pen 40 unit SUBCUT QHS magnesium oxide 400 mg magnesium Tablet 400 mg PO DAILY carvedilol 12.5 mg tablet 25 mg PO TID clonazepam 1 mg tablet 1 mg PO BID PRN (Reason: Anxiety) amlodipine 2.5 mg tablet 2.5 mg PO DAILY pantoprazole 40 mg tablet,delayed release (DR/EC) 40 mg PO DAILY buspirone 7.5 mg tablet 7.5 mg PO TID hydroxyzine HCl 25 mg tablet 25 mg PO QHS PRN (Reason: ANXIETY ) furosemide 40 mg tablet 40 mg PO DAILY atorvastatin 80 mg tablet 80 mg PO QHS metoclopramide HCl 5 mg tablet 5 mg PO TID nitroglycerin 0.4 mg tablet, sublingual 0.4 mg SL Q5M PRN (Reason: CHEST PAIN ) nystatin [Nyamyc] 100,000 unit/gram powder 1 applic topical BID Protocol: *Topical Application Instructions APPLICATION INSTRUCTIONS: to groin albuterol sulfate 90 mcg/actuation HFA aerosol inhaler 2 puff inhalation Q4H PRN (Reason: SHORTNESS OF BREATH/WHEEZING ) Rx Instructions: administer with spacer finasteride 5 mg tablet 5 mg PO DAILY oxycodone 5 mg Tablet 5 mg PO Q6H PRN (Reason: Pain Score 4-10) 7 Days Qty: 28 0RF Rx Instructions: 1 every 6 hours as needed for low back pain tizanidine 2 mg Tablet 4 mg PO Q8H PRN PRN (Reason: Muscle Spasms/Musculoskeletal Pain) Qty: 15 0RF Rx Instructions: 1/2-1 3 times a day as needed for low back pain/spasm clopidogrel 75 mg tablet 75 mg PO DAILY Qty: 30 1RF isosorbide mononitrate 30 mg tablet extended release 24 hr 30 mg PO DAILY Qty: 30 1RF pregabalin [Lyrica] 75 mg capsule 75 mg PO BID Qty: 60 0RF Primary Care Provider: Doretha Brown Referrals: Doretha Brown MD [Primary Care Provider] - Activity Restrictions/Additional Instructions: Thank you for trusting us with your care today! Please take Tylenol (2 pills, 650 mg), ibuprofen (2 pills, 400 mg) every 6 hours as needed for pain and fever control. Please take Bactrim as prescribed. Please return to the emergency department if your symptoms change or worsen. Specific you develop worsening weakness, redness, cannot tolerate antibiotics by mouth, if your symptoms change or worsen in any way. Please follow with your primary care physician for further outpatient evaluation and management. Disposition Disposition: Home, Self Care
--- NOTE | 2023-06-01 20:43 | EKG12_ITS ---
Test Reason : DYSRHYTHMIA Blood Pressure : / mmHG Vent. Rate : 069 BPM Atrial Rate : 069 BPM P-R Int : 228 ms QRS Dur : 100 ms QT Int : 468 ms P-R-T Axes : 081 -02 038 degrees QTc Int : 501 ms Sinus rhythm with 1st degree A-V block Prolonged QT Abnormal ECG When compared with ECG of 08-MAR-2023 17:36, Premature atrial complexes are no longer Present Confirmed by ARAMIS JOHNS, MAURO ([id number]), makeup editor SHARAN DOE ([id number]) on 06/04/2023 8:57:31 AM Referred By: PAULA Confirmed By:MAURO SELF MD
--- NOTE | 2023-06-01 20:43 | RAD_ITS ---
EXAM: XR LEFT FOOT, 2 VIEWS CLINICAL INDICATION: heel ulcer r/o osteo TECHNIQUE: Frontal and lateral views of the left foot. COMPARISON: Left foot radiographs of 05/25/2023. FINDINGS: BONES/JOINTS: Degenerative spurring again noted about the talonavicular articulation. Small posterior calcaneal spur. 2 orthopedic screws remain in place within the medial malleolus, transfixing an old fracture. No acute fracture or dislocation is identified. No lytic osseous lesion. SOFT TISSUES: Lateral view shows a broad ulceration noted along the plantar aspect of foot, inferior to the distal calcaneus. No bubbles of soft tissue emphysema are seen. No radiopaque foreign body. Extensive atherosclerotic vascular calcification is again noted. RAD/Foot 2 Views IMPRESSION: No findings of osteomyelitis identified. Electronically Signed: Andrzej Calles MD at 23:37 EDT ,
--- NOTE | 2023-06-01 21:44 | ED.RN ---
unsuccessful Iv attempt by this RN x3, Rae MEDIC x2, and Jazmine RN x2. MD notified.
[2023-06-01 22:06] LABS: Bacteria 0 SEEN /hpf (None Seen); Mucous, Urine 0 SEEN /hpf (<or=2+); Squamous Epithelial Cells - UA 0 SEEN /hpf (0-5); White Blood Cells 0 SEEN /hpf (0-5)
[2023-06-01 22:07] LABS: Color, Urine Yellow (Yellow); Glucose, Dipstick 100 mg/dl (Normal); Ketone-Dipstick Negative (Negative); Leukocyte Esterase-Dipstick Negative /ul (Negative); Nitrite-Dipstick Negative (Negative); Occult Blood-Urine Negative /ul (Negative); Protein-Dipstick 30 mg/dl (Negative); Specific Gravity, Urine 1.015 (1.002-1.030); Urine Bilirubin Dipstick Negative (Negative); Urine Clarity Clear (Clear); Urine Urobilinogen 1 mg/dl (Normal)
[2023-06-01 22:13] LABS: Red Blood Cells-Urine 0-5 SEEN /hpf (0-5)
[2023-06-01 22:23] VITALS: BP 145/82; PULSE 74; RESP 19; TEMP 36.6; O2SAT 99
[2023-06-01 22:27] LABS: Absolute Lymphocyte Count 1.46 X10^3/uL (0.83-4.51); Absolute Neutrophil Count 9.5 X10^3/uL (2.0-7.7); Basophil# 0.03 X10^3/uL; Basophil% 0.3 % (0-1); Eosinophil# 0.02 X10^3/uL; Eosinophils% 0.2 % (0-5); Hematocrit 37.9 % (40-54); Hemoglobin 12.3 g/dL (13.0-16.5); Lymphocyte # 1.46 X10^3/ul (0.83-4.51); Lymphocyte % 12.2 % (19-41); Mean Corp Hgb Conc 32.5 g/dL (32-36); Mean Corpuscular Hgb 27.9 pg (27.0-32.0); Mean Corpuscular Volume 85.9 fL (80-94); Mean Platelet Vol. 10.2 fl (6.2-12.0); Monocyte# 0.92 X10^3/uL; Monocyte% 7.7 % (0-10); NRBC Flagged by Analyzer 0 % (0-5); Neutrophil # 9.45 X10^3/uL (2.7-7.7); Neutrophil % 79.1 % (47-70); Platelet Count 233 K/mm3 (150-450); RBC Distribution Width SD 40.6 fl (35.1-43.9); Red Blood Count 4.41 M/mm3 (4.6-6.2); White Blood Count 11.9 K/mm3 (4.4-11.0)
[2023-06-01 22:45] LABS: BNP,B-Type NATRIURETIC PEPTIDE 81.3 pg/mL (0-100)
--- NOTE | 2023-06-01 22:47 | RAD_ITS ---
EXAM: XR CHEST, 1 VIEW CLINICAL INDICATION: weakness TECHNIQUE: Frontal view of the chest. COMPARISON: Previous chest radiograph of 03/08/2023. FINDINGS: LUNGS AND PLEURAL SPACES: Chronic atelectasis and/or scarring within the right infrahilar region and medial aspect of the right lung base. No acute pulmonary infiltrates or pleural effusion. No pneumothorax. HEART: Normal heart size and pulmonary vasculature. MEDIASTINUM: Thoracic aorta remains minimally elongated. BONES/JOINTS: Thoracic degenerative spurring. Lower cervical degenerative changes again noted. SOFT TISSUES: Chronic elevation of the right hemidiaphragm. RAD/Chest 1 View (Portable) IMPRESSION: No significant interval change or acute process. Electronically Signed: Andrzej Calles MD at 23:40 EDT ,
[2023-06-01 22:48] LABS: Anion Gap 3 (5-15); BUN 18 mg/dL (7-18); BUN/Creat Ratio 13.7 RATIO (10-20); Calcium,Total 9.5 mg/dL (8.5-10.1); Chloride 103 mmol/L (98-107); Creatinine, Serum 1.31 mg/dL (0.70-1.30); EST Glomerular Filtration Rate 59 mL/min (>60); Est Glom Filt Rate - Afr Amer 71 mL/min (>60); Glucose 263 mg/dL (74-106); Sodium Level 139 mmol/L (136-145); Troponin-I HS 17 pg/mL (3.0-78.0)
[2023-06-01 23:50] VITALS: BP 110/60; PULSE 70; RESP 14; O2SAT 99
[2023-06-01] MEDS: Smz/Tmp Ds Tablet 1 TABLET PO (23:54)
== END 2023-06-02 00:19 | disposition home or self-care (01) ==
PROVIDERS: Emergency Provider Emergency Medicine; PCP Internal Medicine; Visit Provider Emergency Medicine
DX: R53.1 Weakness (principal); E11.51 Type 2 diabetes mellitus with diabetic peripheral angiopathy without gangrene; Z93.1 Gastrostomy status; J44.9 Chronic obstructive pulmonary disease, unspecified; E11.42 Type 2 diabetes mellitus with diabetic polyneuropathy; Z79.4 Long term (current) use of insulin; I10 Essential (primary) hypertension; E78.00 Pure hypercholesterolemia, unspecified; I25.10 Atherosclerotic heart disease of native coronary artery without angina pectoris; L03.90 Cellulitis, unspecified; Z79.82 Long term (current) use of aspirin; Z79.899 Other long term (current) drug therapy; F41.8 Other specified anxiety disorders; K21.9 Gastro-esophageal reflux disease without esophagitis; Z79.02 Long term (current) use of antithrombotics/antiplatelets; Z95.5 Presence of coronary angioplasty implant and graft
CPT/HCPCS: 36415; 71045; 73620; 80048; 81001; 83880; 84484; 85025; 93005; 99285; A4216

== ENCOUNTER 2023-06-05 10:06 | Observation (INO) | payer MEDICARE, MEDICAID, SELFPAY ==
[2023-06-05 10:07] VITALS: PULSE 71; RESP 15; TEMP 36.8; O2SAT 98; BMI 41.1
[2023-06-05 10:13] VITALS: BP 137/66
--- NOTE | 2023-06-05 10:26 | EKG12_ITS ---
Test Reason : WEAKNESS Blood Pressure : / mmHG Vent. Rate : 070 BPM Atrial Rate : 070 BPM P-R Int : 220 ms QRS Dur : 088 ms QT Int : 476 ms P-R-T Axes : 076 -01 048 degrees QTc Int : 514 ms Sinus rhythm with 1st degree A-V block with Premature supraventricular complexes Prolonged QT Abnormal ECG Confirmed by NOAH JOHNS, DANNIE ([id number]), editor school photograph SHARAN DOE ([id number]) on 06/07/2023 11:05:56 A M Referred By: Confirmed By:CAMILA ZAMORA MD
--- NOTE | 2023-06-05 10:28 | EX.ED.DYSGE1 ---
HPI History of Present Illness Chief Complaint: Weakness Informant: patient Narrative Narrative: Patient presents by EMS because of general weakness and inability to stand up without help. He lives alone. This is his third visit in the past week or 2 for similar issues, he had refused admission before. He has a chronic wound on his left foot that he is scheduled to see podiatry and follow-up after the weekend, Dr. Hess. He states that his not painful right now but it is if pressure is applied. He states he has a wound on his buttocks that is sore and has no other complaints. When asked if he has discharge or bleeding from it he states he does not know because he cannot see it, but he does not know if there is anything on sheets, bedding, carpet, or not because he has not checked. He is a poor historian. EMS states they have been called on him around 6 times in the past couple weeks, and he looks like he is unable to care for himself. He had a low-grade temperature for them prior to arrival but he is afebrile here. He is on chronic oxygen at home, he has a history of COPD although he did not know that, he states he has had no trouble breathing while he has been wearing his oxygen. [facility] Medical History Ambulates with cane Amputation of one or more toes Anxiety Anxiety and depression Arrhythmia Arthritis Aspiration into airway Aspiration pneumonia Atherosclerotic heart disease of [place] coronary artery without angina pectoris Back pain Back spasm Bilateral leg weakness Blind left eye Blister (nonthermal), left foot, initial encounter Bronchiectasis with (acute) exacerbation Cardiology follow-up encounter Chronic cough Chronic respiratory failure with hypoxia CKD (chronic kidney disease) COPD (chronic obstructive pulmonary disease) CPAP (continuous positive airway pressure) dependence Debility, unspecified Depression Diabetes Essential hypertension Gastric reflux GERD (gastroesophageal reflux disease) High cholesterol History of aspiration pneumonia History of diabetes mellitus History of echocardiogram History of edema History of gout History of heart attack History of non-ST elevation myocardial infarction (NSTEMI) (08/2016) History of pain when walking History of steroid therapy History of stress test Hyperglycemia due to type 2 diabetes mellitus Hypertension Insulin dependent diabetes mellitus Kidney disease Kidney stones Kidney stones Leg pain, right Leukocytosis Low back pain Memory impairment Migraines Mood disorder Myocardial infarct Non-smoker Noncompliance by declining intervention or support On home oxygen therapy Peripheral vascular occlusive disease Pneumonia Prostate disease Pulmonary nodule, left Recurrent falls Right ankle pain Right foot pain Shortness of breath on exertion Silent aspiration Sleep apnea Tremor Type 2 diabetes mellitus Type 2 diabetes mellitus with diabetic polyneuropathy Ulcer of left foot, limited to breakdown of skin 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 Wears glasses Wound of left lower extremity Home Medications acetaminophen 500 mg tablet 1,000 mg PO QHS PRN PAIN 02/11/21 [History Last Taken 05/24/23] aspirin 81 mg tablet,delayed release (Adult Aspirin Regimen) 81 mg PO DAILY HEART HEALTH 11/05/21 [History Last Taken 06/04/23] peg [id number] 1 %-0.2 %-0.2 % eye drops (Artificial Tears ([id number])) 2 drp EACH EYE Q1H PRN DRY EYES #0 mL 11/14/21 [Rx Last Taken 06/04/23] loratadine 10 mg tablet (Allergy Relief (loratadine)) 10 mg PO DAILY ALLERGIES 05/21/22 [History Last Taken 06/04/23] gauze bandage 4 X 4 (Bordered Gauze) #14 ea 07/03/22 [Rx Last Taken Unknown] walker (Ultra-Light Rollator misc) #1 ea 07/21/22 [Rx Last Taken Unknown] insulin lispro 100 unit/mL subcutaneous pen sliding scale dose subcut ACHS DIABETES 08/12/22 [History Last Taken 06/04/23] pen needle, diabetic 33 gauge x 5/16 #200 ea 12/02/22 [Rx Last Taken Unknown] insulin lispro 100 unit/mL subcutaneous pen (Humalog KwikPen (U-100) Insulin) 14 unit (0.14 mL) subcut TIDAC 3 months #37.8 mL 03/04/23 [Rx Last Taken 06/04/23] fluoxetine 20 mg capsule 20 mg PO DAILY ANXIETY 03/23/23 [History Last Taken 06/04/23] melatonin 3 mg tablet 3 mg PO QHS INSOMNIA 03/23/23 [History Last Taken 06/04/23] albuterol sulfate 90 mcg/actuation aerosol inhaler 2 puff inhalation Q4H PRN SHORTNESS OF BREATH/WHEEZING 05/25/23 [History Last Taken Unknown] amlodipine 2.5 mg tablet 2.5 mg PO DAILY BLOOD PRESSURE 05/25/23 [History Last Taken 06/04/23] atorvastatin 80 mg tablet 80 mg PO QHS CHOLESTEROL 05/25/23 [History Last Taken 06/04/23] buspirone 7.5 mg tablet 7.5 mg PO TID ANXIETY 05/25/23 [History Last Taken 06/04/23] carvedilol 12.5 mg tablet 25 mg PO BID HEART 05/25/23 [History Last Taken 06/04/23] finasteride 5 mg tablet 5 mg PO DAILY PROSTATE 05/25/23 [History Last Taken 06/04/23] fluoxetine 40 mg capsule 40 mg PO DAILY ANXIETY 05/25/23 [History Last Taken 06/04/23] furosemide 40 mg tablet 40 mg PO DAILY FLUID 05/25/23 [History Last Taken 06/04/23] hydroxyzine HCl 25 mg tablet 25 mg PO QHS PRN ANXIETY 05/25/23 [History Last Taken 06/04/23] insulin detemir U-100 100 unit/mL (3 mL) subcutaneous pen (Levemir FlexPen) 40 unit subcut QHS DIABETES 05/25/23 [History Last Taken 06/04/23] losartan 50 mg tablet 50 mg PO DAILY BLOOD PRESSURE 05/25/23 [History Last Taken 06/04/23] nitroglycerin 0.4 mg sublingual tablet 0.4 mg sublingual Q5M PRN CHEST PAIN 05/25/23 [History Last Taken Unknown] nystatin 100,000 unit/gram topical powder (Nyamyc) 1 applic topical BID SKIN INFECTIONS 05/25/23 [History Last Taken Unknown] pantoprazole 40 mg tablet,delayed release 40 mg PO DAILY ACID REFLUX 05/25/23 [History Last Taken 06/04/23] trazodone 150 mg tablet 150 mg PO QHS INSOMNIA 05/25/23 [History Last Taken 06/04/23] clopidogrel 75 mg tablet 75 mg PO DAILY BLOOD THINNER #30 tabs 05/28/23 [Rx Last Taken 06/04/23] isosorbide mononitrate 30 mg tablet,extended release 24 hr 30 mg PO DAILY HEART #30 tabs 05/28/23 [Rx Last Taken 06/04/23] pregabalin 75 mg capsule (Lyrica) 75 mg PO BID PAIN #60 caps 05/28/23 [Rx Last Taken 06/04/23] sulfamethoxazole 800 mg-trimethoprim 160 mg tablet (Bactrim DS) 1 tab PO BID 7 days #14 tabs 06/01/23 [Rx Last Taken 06/04/23] Allergy/AdvReac Type Severity Reaction Status Date / Time allopurinol AdvReac Vomiting Verified 06/05/23 10:12 Influenza Virus Vaccines AdvReac Vomiting Verified 06/05/23 10:12 pneumococcal vaccine AdvReac Vomiting Verified 06/05/23 10:12 Family History Mother Diabetes Heart disease CHF Father Heart disease CA/CAD Myocardial infarction Surgical History H/O lithotripsy History of angioplasty of peripheral vessel (2016) History of angioplasty of peripheral vessel History of ankle surgery History of cardiac catheterization History of coronary artery stent placement (08/2016) History of coronary artery stent placement History of esophagogastroduodenoscopy (EGD) History of left heart catheterization (11/15/17) History of thyroid surgery Hx of lithotripsy Hx of surgery to heart and great vessels, presenting hazards to health Hx of surgical procedure Hx of thyroidectomy Hx of toe surgery Hx of toe surgery PEG (percutaneous endoscopic gastrostomy) status Social History household members: spouse housing: apartment Smoking Status: Never smoker alcohol intake: never substance use type: does not use ROS ROS ED Constitutional Constitutional ED: Reports weakness; Denies chills or fever(s) Eyes Eyes: Denies change in vision or diplopia ENT ENT ED: Denies rhinorrhea or sore throat Cardiovascular Cardiovascular: Denies chest pain or palpitations Respiratory/Chest Respiratory/Chest: Denies cough or dyspnea Gastrointestinal Gastrointestinal: Denies abdominal pain, diarrhea, nausea or vomiting Genitourinary Genitourinary ED: Denies dysuria or hematuria Musculoskeletal Musculoskeletal: Denies back pain or neck pain Integumentary Reports wounds; Denies abscess or rash Neurologic Neurologic: Denies headache(s), paresthesias or weakness Psychiatric Psychiatric: Denies suicidal ideation or suicidal thoughts EXAM Physical Exam Const Vital Signs: 06/05/23 10:07 06/05/23 10:13 06/05/23 10:13 Temperature 98.3 F Temperature Source Oral Pulse Rate 71 Respiratory Rate 15 Respiratory Effort Normal Non-Labored Blood Pressure 137/66 H Blood Pressure Mean 89 Pulse Ox 98 Oxygen Delivery Method Nasal Cannula Oxygen Flow Rate (L/min) 4 06/05/23 12:18 Temperature Temperature Source Pulse Rate 63 Respiratory Rate 12 Respiratory Effort Blood Pressure 142/82 H Blood Pressure Mean 102 Pulse Ox 100 Oxygen Delivery Method Nasal Cannula Oxygen Flow Rate (L/min) 4 Positive well nourished, well developed and obese General Appearance ED: well developed and NAD Nutritional Appearance: obese HEENT Reports moist mucous membranes normocephalic and atraumatic Eyes PERRL and EOMs intact bilaterally Neck full ROM and supple Resp normal respiratory effort and clear to auscultation bilaterally Cardio regular rate, regular rhythm and no murmurs Rate: Negative for tachycardic GI non-tender and non-distended Auscultation: normoactive bowel sounds Palpation: soft Narrative: Right buttock decubitus ulceration, approximately stage II no palpable collection or bony tenderness, wound itself is mildly tender but does not appear to be infected, no discharge or active bleeding. Back/Spine no CVA tenderness General Back: other FROM Extremity normal to inspection Extremity Narrative: Status post transtarsal amputation right foot. Stump appears healthy and perfused. Left foot has an ulcerated tender erythematous wound at the posterior aspect plantar heel. No active discharge or bleeding expressible, but there is discharge on the dressing. General Extremety ED: Yes tenderness; Negative for edema or pulses abnormal General Extremity: Negative for edema or pulses abnormal Neuro oriented x3, CN's II-XII intact bilaterally and no sensory deficits noted Sensorium / Orientation: awake and alert Motor Exam: strength 5/5 throughout Skin no rashes or lesions noted and no wounds MDM MDM MDM Narrative Medical decision making narrative: Work-up obtained, infectious, metabolic, cardiac. For the most part unchanged compared with the last time he was here less than 1 week ago, except he does have what qualifies for stage I CELESTE at this time with creatinine of 1.6, recent baseline 1.19. Urinalysis shows no signs of infection. His TSH is within normal limits. His anemia is stable at 11.4 hemoglobin. He was getting some slow IV fluids here in emergency department. Chest x-ray shows no signs of infection/pneumonia on my interpretation, 1 view. Radiology in agreement. Patient agrees he is too weak to go home. His significant other is here now, she is not able to help him because of weakness. Patient states he does not want to go to a senior living, but after I explained things he does understand that if he is admitted and is still too weak to go home at the end of his admission, he may need to go to short-term rehab for TEMPORARY senior living stay. With regards to the wound and possible infection of his left heel, he is following with Dr. Hess to podiatry, and has been on Bactrim for that since his last ER stay. Furthermore, old records show that home health was supposed to see him, and 4 times in a row, they were unable due to being understaffed. Lab Data Attestation: I reviewed the patient's lab results. Labs: Laboratory Results - last 24 hr 06/05/23 06/05/23 10:15 12:15 WBC 9.6 RBC 4.10 L Hgb 11.4 L Hct 36.0 L MCV 87.8 MCH 27.8 MCHC 31.7 L RDW Std Deviation 41.8 RDW Coeff of James 13.0 Plt Count 226 MPV 10.5 Immature Gran % (Auto) 0.400 Neut % (Auto) 73.2 H Lymph % (Auto) 12.4 L [place] % (Auto) 10.5 H Eos % (Auto) 2.9 Baso % (Auto) 0.6 Absolute Neuts (auto) 7.1 Absolute Lymphs (auto) 1.20 Nucleated RBC % 0 Sodium 137 Potassium 3.7 Chloride 101 Carbon Dioxide 30.0 Anion Gap 6 BUN 21 H Creatinine 1.60 H Estim Creat Clear Calc 48.16 Est GFR (MDRD) Af Amer 56 L Est GFR (MDRD) Non-Af 46 L BUN/Creatinine Ratio 13.1 Glucose 240 H Lactic Acid 1.4 Calcium 9.0 Troponin I High Sens 16 TSH 1.72 Urine Color Yellow Urine Clarity Clear Urine pH 6.0 Ur Specific [place] 1.015 Urine Protein 30 H Urine Glucose (UA) 100 H Urine Ketones Negative Urine Occult Blood Negative Urine Nitrite Negative Urine Bilirubin Negative Urine Urobilinogen 1 H Ur Leukocyte Esterase Negative Urine RBC 0 SEEN Urine WBC 0 SEEN Ur Squamous Epith Cells 0 SEEN Urine Bacteria 0 SEEN Urine Mucus 0 SEEN Radiography Diagnostic Testing: Clinical Impression(s) from Imaging Studies Chest X-Ray 06/05/23 10:45 IMPRESSION: No interval change Electronically Signed: Fredrick Aaron MD at 11:11 EDT , Rhythm Strip Rhythm Strip: Sinus Rhythm Rate: 70 Ectopy: None EKG Initial EKG: Attestation: I personally reviewed and interpreted this EKG as follows: Interpretation: Sinus Rhythm and No Acute Injury Pattern Prior EKG tracings: available for review Prior: Unchanged Management Discussion w/another healthcare provider: Hospitalist Discharge Plan Dx/Rx/DC Orders Clinical Impression: CELESTE (acute kidney injury), Generalized weakness, Declining functional status, Unable to ambulate, Open wound of left heel Disposition Disposition: Acute Care [facility]
[2023-06-05 10:36] LABS: Absolute Neutrophil Count 7.1 X10^3/uL (2.0-7.7); Basophil# 0.06 X10^3/uL; Basophil% 0.6 % (0-1); Eosinophil# 0.28 X10^3/uL; Eosinophils% 2.9 % (0-5); Hemoglobin 11.4 g/dL (13.0-16.5); Lymphocyte % 12.4 % (19-41); Mean Corp Hgb Conc 31.7 g/dL (32-36); Mean Corpuscular Hgb 27.8 pg (27.0-32.0); Mean Corpuscular Volume 87.8 fL (80-94); Mean Platelet Vol. 10.5 fl (6.2-12.0); Monocyte# 1.01 X10^3/uL; Monocyte% 10.5 % (0-10); NRBC Flagged by Analyzer 0 % (0-5); Neutrophil # 7.05 X10^3/uL (2.7-7.7); Neutrophil % 73.2 % (47-70); Platelet Count 226 K/mm3 (150-450); RBC Distribution Width SD 41.8 fl (35.1-43.9); White Blood Count 9.6 K/mm3 (4.4-11.0)
--- NOTE | 2023-06-05 10:45 | RAD_ITS ---
STUDY: X-RAY CHEST REASON FOR EXAM: Male, 63 years old. Weakness TECHNIQUE: Single AP portable view of the chest. COMPARISON: 06/01/2023 FINDINGS: EKG leads overlie the chest. Chronic atelectasis in the right lung base with elevation of the right hemidiaphragm. Normal size heart. Normal mediastinum and pat. Normal visualized pulmonary arteries. Normal visualized aortic arch and descending thoracic aorta. Normal visualized thoracic spine. Normal visualized ribs, clavicles, and shoulders. There is no demonstrated abnormality of the visualized soft tissue structures of the upper abdomen. RAD/Chest 1 View (Portable) IMPRESSION: No interval change Electronically Signed: Fredrick Aaron MD at 11:11 EDT ,
[2023-06-05] MEDS: 0.9% Normal Saline 1,000 ML 150 ML IV (10:55)
[2023-06-05 11:14] LABS: Lactic Acid 1.4 mmol/L (0.4-1.9)
[2023-06-05 12:18] VITALS: BP 142/82; PULSE 63; RESP 12; O2SAT 100
[2023-06-05 12:20] LABS: Bacteria 0 SEEN /hpf (None Seen); Mucous, Urine 0 SEEN /hpf (<or=2+); Red Blood Cells-Urine 0 SEEN /hpf (0-5); Squamous Epithelial Cells - UA 0 SEEN /hpf (0-5); White Blood Cells 0 SEEN /hpf (0-5)
[2023-06-05 12:33] LABS: Color, Urine Yellow (Yellow); Glucose, Dipstick 100 mg/dl (Normal); Ketone-Dipstick Negative (Negative); Leukocyte Esterase-Dipstick Negative /ul (Negative); Nitrite-Dipstick Negative (Negative); Occult Blood-Urine Negative /ul (Negative); Protein-Dipstick 30 mg/dl (Negative); Specific Gravity, Urine 1.015 (1.002-1.030); Urine Bilirubin Dipstick Negative (Negative); Urine Clarity Clear (Clear); Urine Urobilinogen 1 mg/dl (Normal)
[2023-06-05 13:06] LABS: Anion Gap 6 (5-15); BUN 21 mg/dL (7-18); BUN/Creat Ratio 13.1 RATIO (10-20); Chloride 101 mmol/L (98-107); EST Glomerular Filtration Rate 46 mL/min (>60); Est Glom Filt Rate - Afr Amer 56 mL/min (>60); Estimated Creatinine Clearance 48.16 ml/min; Glucose 240 mg/dL (74-106); Potassium 3.7 mmol/L (3.5-5.1); Sodium Level 137 mmol/L (136-145); Thyroid Stim Hormone (TSH) 1.72 uIU/mL (0.358-3.74); Troponin-I HS 16 pg/mL (3.0-78.0)
[2023-06-05 13:50] VITALS: BP 111/89; PULSE 62; RESP 16; TEMP 36.6; O2SAT 99
[2023-06-05 15:17] VITALS: BMI 40.1
[2023-06-05 15:34] VITALS: BP 161/87; PULSE 64; RESP 16; TEMP 36.6; O2SAT 98
--- NOTE | 2023-06-05 15:48 | PCM.HP.STD ---
HPI - General General Date of Admission: 06/05/23 Date of Service: 06/05/23 Chief Complaint: Generalized debility HPI Narrative REA HANNA, is a 63 M who presents to the emergency room at [facility] with complaints of generalized debility and inability to perform ADLs at home. 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 He does have home health aides that come in periodically to help him. Patient also has a chronic left heel wound and is being seen on a continuous basis by podiatry. Patient has refused placement in a prison during his previous hospitalizations even though it was recommended that he consider it because of debility, the emergency room doctor at the time of this admission today talk to him about it and he appears to agree that it is necessary for him to go to a skilled facility somewhere at least short-term for rehab services. Labs were obtained in the emergency room, his white blood cell count was normal, hemoglobin was slightly low at 11.4, creatinine was elevated 1.6 and BUN was 21. Patient's glucose was 240, patient's urinalysis was unremarkable. Patient will be admitted for acute on chronic debility, he will be seen by PT and OT, he will need at least short-term placement in a [facility] facility for inpatient rehab services. [facility] Medical History Ambulates with cane Amputation of one or more toes Anxiety Anxiety and depression Arrhythmia Arthritis Aspiration into airway Aspiration pneumonia Atherosclerotic heart disease of [place] coronary artery without angina pectoris Back pain Back spasm Bilateral leg weakness Blind left eye Blister (nonthermal), left foot, initial encounter Bronchiectasis with (acute) exacerbation Cardiology follow-up encounter Chronic cough Chronic respiratory failure with hypoxia CKD (chronic kidney disease) COPD (chronic obstructive pulmonary disease) CPAP (continuous positive airway pressure) dependence Debility, unspecified Depression Diabetes Essential hypertension Gastric reflux GERD (gastroesophageal reflux disease) High cholesterol History of aspiration pneumonia History of diabetes mellitus History of echocardiogram History of edema History of gout History of heart attack History of non-ST elevation myocardial infarction (NSTEMI) (08/2016) History of pain when walking History of steroid therapy History of stress test Hyperglycemia due to type 2 diabetes mellitus Hypertension Insulin dependent diabetes mellitus Kidney disease Kidney stones Kidney stones Leg pain, right Leukocytosis Low back pain Memory impairment Migraines Mood disorder Myocardial infarct Non-smoker Noncompliance by declining intervention or support On home oxygen therapy Peripheral vascular occlusive disease Pneumonia Prostate disease Pulmonary nodule, left Recurrent falls Right ankle pain Right foot pain Shortness of breath on exertion Silent aspiration Sleep apnea Tremor Type 2 diabetes mellitus Type 2 diabetes mellitus with diabetic polyneuropathy Ulcer of left foot, limited to breakdown of skin 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 Wears glasses Wound of left lower extremity Home Medications acetaminophen 500 mg tablet 1,000 mg PO QHS PRN PAIN 02/11/21 [History Last Taken 05/24/23] aspirin 81 mg tablet,delayed release (Adult Aspirin Regimen) 81 mg PO DAILY HEART HEALTH 11/05/21 [History Last Taken 06/04/23] peg [id number] 1 %-0.2 %-0.2 % eye drops (Artificial Tears ([id number])) 2 drp EACH EYE Q1H PRN DRY EYES #0 mL 11/14/21 [Rx Last Taken 06/04/23] loratadine 10 mg tablet (Allergy Relief (loratadine)) 10 mg PO DAILY ALLERGIES 05/21/22 [History Last Taken 06/04/23] gauze bandage 4 X 4 (Bordered Gauze) #14 ea 07/03/22 [Rx Last Taken Unknown] walker (Ultra-Light Rollator misc) #1 ea 07/21/22 [Rx Last Taken Unknown] insulin lispro 100 unit/mL subcutaneous pen sliding scale dose subcut ACHS DIABETES 08/12/22 [History Last Taken 06/04/23] pen needle, diabetic 33 gauge x 5/16 #200 ea 12/02/22 [Rx Last Taken Unknown] insulin lispro 100 unit/mL subcutaneous pen (Humalog KwikPen (U-100) Insulin) 14 unit (0.14 mL) subcut TIDAC 3 months #37.8 mL 03/04/23 [Rx Last Taken 06/04/23] fluoxetine 20 mg capsule 20 mg PO DAILY ANXIETY 03/23/23 [History Last Taken 06/04/23] melatonin 3 mg tablet 3 mg PO QHS INSOMNIA 03/23/23 [History Last Taken 06/04/23] albuterol sulfate 90 mcg/actuation aerosol inhaler 2 puff inhalation Q4H PRN SHORTNESS OF BREATH/WHEEZING 05/25/23 [History Last Taken Unknown] amlodipine 2.5 mg tablet 2.5 mg PO DAILY BLOOD PRESSURE 05/25/23 [History Last Taken 06/04/23] atorvastatin 80 mg tablet 80 mg PO QHS CHOLESTEROL 05/25/23 [History Last Taken 06/04/23] buspirone 7.5 mg tablet 7.5 mg PO TID ANXIETY 05/25/23 [History Last Taken 06/04/23] carvedilol 12.5 mg tablet 25 mg PO BID HEART 05/25/23 [History Last Taken 06/04/23] finasteride 5 mg tablet 5 mg PO DAILY PROSTATE 05/25/23 [History Last Taken 06/04/23] fluoxetine 40 mg capsule 40 mg PO DAILY ANXIETY 05/25/23 [History Last Taken 06/04/23] furosemide 40 mg tablet 40 mg PO DAILY FLUID 05/25/23 [History Last Taken 06/04/23] hydroxyzine HCl 25 mg tablet 25 mg PO QHS PRN ANXIETY 05/25/23 [History Last Taken 06/04/23] insulin detemir U-100 100 unit/mL (3 mL) subcutaneous pen (Levemir FlexPen) 40 unit subcut QHS DIABETES 05/25/23 [History Last Taken 06/04/23] losartan 50 mg tablet 50 mg PO DAILY BLOOD PRESSURE 05/25/23 [History Last Taken 06/04/23] nitroglycerin 0.4 mg sublingual tablet 0.4 mg sublingual Q5M PRN CHEST PAIN 05/25/23 [History Last Taken Unknown] nystatin 100,000 unit/gram topical powder ([facility]) 1 applic topical BID SKIN INFECTIONS 05/25/23 [History Last Taken Unknown] pantoprazole 40 mg tablet,delayed release 40 mg PO DAILY ACID REFLUX 05/25/23 [History Last Taken 06/04/23] trazodone 150 mg tablet 150 mg PO QHS INSOMNIA 05/25/23 [History Last Taken 06/04/23] clopidogrel 75 mg tablet 75 mg PO DAILY BLOOD THINNER #30 tabs 05/28/23 [Rx Last Taken 06/04/23] isosorbide mononitrate 30 mg tablet,extended release 24 hr 30 mg PO DAILY HEART #30 tabs 05/28/23 [Rx Last Taken 06/04/23] pregabalin 75 mg capsule (Lyrica) 75 mg PO BID PAIN #60 caps 05/28/23 [Rx Last Taken 06/04/23] sulfamethoxazole 800 mg-trimethoprim 160 mg tablet (Bactrim DS) 1 tab PO BID 7 days #14 tabs 06/01/23 [Rx Last Taken 06/04/23] Allergy/AdvReac Type Severity Reaction Status Date / Time allopurinol AdvReac Vomiting Verified 06/05/23 10:12 Influenza Virus Vaccines AdvReac Vomiting Verified 06/05/23 10:12 pneumococcal vaccine AdvReac Vomiting Verified 06/05/23 10:12 Family History Mother Diabetes Heart disease CHF Father Heart disease IN/CAD Myocardial infarction Surgical History H/O lithotripsy History of angioplasty of peripheral vessel (2016) History of angioplasty of peripheral vessel History of ankle surgery History of cardiac catheterization History of coronary artery stent placement (08/2016) History of coronary artery stent placement History of esophagogastroduodenoscopy (EGD) History of left heart catheterization (11/15/17) History of thyroid surgery Hx of lithotripsy Hx of surgery to heart and great vessels, presenting hazards to health Hx of surgical procedure Hx of thyroidectomy Hx of toe surgery Hx of toe surgery PEG (percutaneous endoscopic gastrostomy) status Social History household members: spouse housing: apartment Smoking Status: Never smoker alcohol intake: never substance use type: does not use ROS Constitutional Constitutional: Reports fatigue and weakness; Denies anorexia, change in weight, fever(s) or night sweats Eyes Eyes: Denies blurry vision, change in vision, discharge from eye(s) or eye pain Cardiovascular Cardiovascular: Denies chest pain, claudication, dyspnea on exertion, edema, lightheadedness or palpitations Respiratory/Chest Respiratory/Chest: Reports shortness of breath with exertion; Denies cough, dyspnea, hemoptysis, productive cough or shortness of breath at rest Gastrointestinal Gastrointestinal: Denies abdominal pain, coffee ground emesis, constipation, diarrhea, hematemesis, hematochezia, melena, nausea or vomiting Genitourinary Genitourinary: Denies difficulty urinating, dysuria, hematuria, nocturia, urinary frequency, urinary hesitancy, urinary incontinence or urinary urgency Musculoskeletal Musculoskeletal: Denies back pain, joint pain, joint stiffness, joint swelling, myalgias or neck pain Neurologic Neurologic: Denies abnormal gait, abnormal speech, confusion, disequilibrium, dizziness, focal weakness, headache(s), loss of vision, numbness, other visual disturbances, paresthesias, syncope or tingling Psychiatric Psychiatric: Denies anxiety, cognitive impairment, depression, irritability, mood swings or suicidal ideation Endocrine Endocrinology: Denies change in body appearance, cold intolerance, excessive sweating, heat intolerance, polydipsia or polyuria Hematologic/Lymphatic Hematologic/Lymphatic: Denies none, anemia, easy bleeding, easy bruising or lymphadenopathy Allergic/Immunologic Allergic/Immunologic: Denies rhinitis, urticaria, eczemia or asthma Vital Signs Vital Signs Vital Signs: 06/05/23 10:07 06/05/23 10:13 06/05/23 10:13 Temperature 98.3 F Temperature Source Oral Pulse Rate 71 Respiratory Rate 15 Respiratory Effort Normal Non-Labored Respiratory Depth Respiratory Pattern Blood Pressure 137/66 H Blood Pressure Mean 89 Blood Pressure Source Blood Pressure Position Blood Pressure Location Pulse Ox 98 Oxygen Delivery Method Nasal Cannula Oxygen Flow Rate (L/min) 4 06/05/23 12:18 06/05/23 13:50 06/05/23 15:29 Temperature 97.9 F Temperature Source Temporal Pulse Rate 63 62 Respiratory Rate 12 16 Respiratory Effort Normal Respiratory Depth Normal Respiratory Pattern Normal Blood Pressure 142/82 H 111/89 H Blood Pressure Mean 102 96 Blood Pressure Source Blood Pressure Position Blood Pressure Location Pulse Ox 100 99 Oxygen Delivery Method Nasal Cannula Nasal Cannula Nasal Cannula Oxygen Flow Rate (L/min) 4 4 4 06/05/23 15:34 Temperature 98 F Temperature Source Oral Pulse Rate 64 Respiratory Rate 16 Respiratory Effort Respiratory Depth Respiratory Pattern Blood Pressure 161/87 H Blood Pressure Mean 111 Blood Pressure Source Monitor Blood Pressure Position Semi-Fowlers Blood Pressure Location Right Arm Pulse Ox 98 Oxygen Delivery Method Nasal Cannula Oxygen Flow Rate (L/min) 4 Weight Weight: 127.006 kg Body Mass Index (BMI) 40.1 Physical Exam Const alert, oriented x3 and no apparent distress Constitutional Narrative: Patient appears older than his stated age General Appearance: cooperative, well kempt and well developed Orientation / Consciousness: awake, oriented to person, oriented to place and oriented to time HEENT normocephalic, head/scalp atraumatic, hearing grossly normal bilaterally and moist oral mucous membranes Eyes PERRL, EOMs intact bilaterally and conjunctivae normal Neck supple, no JVD, thyroid normal and no carotid bruits General: trachea midline Resp normal respiratory effort, no retractions, no use of accessory muscles and clear to auscultation bilaterally Auscultation: Negative for rales, rhonchi or wheezes Cardio regular rate, regular rhythm, S1 normal heart sound, S2 normal heart sound, no murmurs, no rub and no gallops GI normal to inspection, nondistended, normoactive bowel sounds, soft to palpation, non-tender and non-distended Extremity Extremity Narrative: Left foot is bandaged with surgical dressing, this was not removed to examine the patient's neuropathic plantar ulcer. There is noted to be a previous amputation of the patient's right foot noted with a welled healed area. Skin Skin Narrative: Patient has a plantar neuropathic ulceration on his left foot Neuro oriented x3, CN's II-XII intact bilaterally, moves all extremities and no focal motor deficits Sensorium / Orientation: awake, alert, oriented to person and oriented to place Speech: speech normal Psych affect normal Results Lab / Micro Data 06/05/23 10:15 06/05/23 10:15 Labs: Laboratory Results - last 24 hr 06/05/23 10:15: WBC 9.6, RBC 4.10 L, Hgb 11.4 L, Hct 36.0 L, MCV 87.8, MCH 27.8, MCHC 31.7 L, RDW Std Deviation 41.8, RDW Coeff of [place] 13.0, Plt Count 226, MPV 10.5, Immature Gran % (Auto) 0.400, Neut % (Auto) 73.2 H, Lymph % (Auto) 12.4 L, [place] % (Auto) 10.5 H, Eos % (Auto) 2.9, Baso % (Auto) 0.6, Absolute Neuts (auto) 7.1, Absolute Lymphs (auto) 1.20, Nucleated RBC % 0, Sodium 137, Potassium 3.7, Chloride 101, Carbon Dioxide 30.0, Anion Gap 6, BUN 21 H, Creatinine 1.60 H, Estim Creat Clear Calc 48.16, Est GFR (MDRD) Af Amer 56 L, Est GFR (MDRD) Non-Af 46 L, BUN/Creatinine Ratio 13.1, Glucose 240 H, Lactic Acid 1.4, Calcium 9.0, Troponin I High Sens 16, TSH 1.72 06/05/23 12:15: Urine Color Yellow, Urine Clarity Clear, Urine pH 6.0, Ur Specific [place] 1.015, Urine Protein 30 H, Urine Glucose (UA) 100 H, Urine Ketones Negative, Urine Occult Blood Negative, Urine Nitrite Negative, Urine Bilirubin Negative, Urine Urobilinogen 1 H, Ur Leukocyte Esterase Negative, Urine RBC 0 SEEN, Urine WBC 0 SEEN, Ur Squamous Epith Cells 0 SEEN, Urine Bacteria 0 SEEN, Urine Mucus 0 SEEN Rhythm Strip Rhythm Strip: Sinus Rhythm Rate: 70 Ectopy: None Radiology Impression Chest X-Ray 06/05/23 10:45 IMPRESSION: No interval change Electronically Signed: Fredrick Aaron MD at 11:11 EDT Reading Location ID and State: [address] [place] [address] , Service support , Assessment & Plan Assessment/Plan (1) Declining functional status: PLAN: Plan 1. Acute on chronic debility-secondary to multiple medical problems-patient will be admitted to [facility], he will be seen by PT and OT, patient will need at least temporary placement in a [facility] facility for inpatient rehab services. 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-patient will be seen in consultation by podiatry, I will not start the patient on any antibiotics at this time-I do not feel it is warranted #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
[2023-06-05] MEDS: 0.9% Normal Saline 1,000 ML 100 ML IV (15:56)
[2023-06-05] MEDS: Insulin Lispro 100 UNIT/ML INSULN.PEN SC ×2 (16:03→22:08)
[2023-06-05 16:04] LABS: Bedside Glucose 233 mg/dL (74-106)
[2023-06-05] MEDS: Insulin Lispro 100 UNIT/ML INSULN.PEN 14 UNIT SC (16:04)
[2023-06-05] MEDS: Carvedilol 25 MG Tablet PO (16:04)
--- NOTE | 2023-06-05 16:43 | CASEMGMT ---
RN CM NOTE: left Pricila, on-call nurse for [facility], to notify her of pt's admission to [facility]. Zelalem BACA RN CM
[2023-06-05 21:30] VITALS: BP 122/63; PULSE 57; RESP 19; TEMP 36.6; O2SAT 98
[2023-06-05] MEDS: traZODone 100 MG Tablet 150 MG PO (21:57)
[2023-06-05] MEDS: MELATONIN 3 MG TABLET PO (21:57)
[2023-06-05] MEDS: busPIRone 15 MG TABLET 7.5 MG PO (21:58)
[2023-06-05] MEDS: Pregabalin 75 MG Capsule PO (21:58)
[2023-06-05] MEDS: Heparin Injection (Vial) 5,000 UNIT/ML VIAL 5000 UNIT SC (21:58)
[2023-06-05] MEDS: Menthol/Lanolin/Calamine/Znox 113 GM Tube 1 APPLIC TOPICAL (21:59)
[2023-06-05] MEDS: Nystatin Powder 15gm Bottle 1 APPLIC TOPICAL (21:59)
[2023-06-05] MEDS: Atorvastatin Calcium 80 MG Tablet PO (22:00)
[2023-06-05] MEDS: Insulin Glargine-YFGN 100 UNIT/ML Pen 40 UNIT SC (22:05)
[2023-06-06 00:22] LABS: Bedside Glucose 155 mg/dL (74-106)
[2023-06-06] MEDS: 0.9% Normal Saline 1,000 ML 100 ML IV ×3 (01:50→21:46)
[2023-06-06 03:18] VITALS: BP 131/77; PULSE 48; RESP 18; TEMP 36.6; O2SAT 100
[2023-06-06] MEDS: busPIRone 15 MG TABLET 7.5 MG PO ×3 (05:19→21:43)
[2023-06-06] MEDS: Insulin Lispro 100 UNIT/ML INSULN.PEN SC (07:24)
[2023-06-06] MEDS: Insulin Lispro 100 UNIT/ML INSULN.PEN 14 UNIT SC ×3 (07:25→17:06)
[2023-06-06] MEDS: Carvedilol 25 MG Tablet PO ×2 (07:26→17:07)
[2023-06-06] MEDS: Losartan Potassium 50 MG Tablet PO (07:26)
[2023-06-06] MEDS: Aspirin E.C. 81 MG Tablet PO (07:27)
[2023-06-06] MEDS: Furosemide 40 MG Tablet PO (07:27)
[2023-06-06] MEDS: Finasteride 5 MG Tablet PO (07:27)
[2023-06-06] MEDS: amLODIPine 2.5 MG Tablet PO (07:27)
[2023-06-06] MEDS: Isosorbide Mononitrate 30 MG Tablet PO (07:27)
[2023-06-06] MEDS: FLUoxetine 20 MG Capsule PO (07:27)
[2023-06-06] MEDS: Fluoxetine HCl 40 MG CAPSULE PO (07:28)
[2023-06-06] MEDS: Pantoprazole Sodium 40 MG Tablet PO (07:29)
[2023-06-06] MEDS: Clopidogrel Bisulfate 75 MG Tablet PO (07:30)
[2023-06-06] MEDS: Nystatin Powder 15gm Bottle 1 APPLIC TOPICAL ×2 (07:30→21:44)
[2023-06-06] MEDS: Pregabalin 75 MG Capsule PO ×2 (07:32→21:50)
[2023-06-06] MEDS: Menthol/Lanolin/Calamine/Znox 113 GM Tube 1 APPLIC TOPICAL ×2 (07:32→21:45)
[2023-06-06 07:34] LABS: Absolute Lymphocyte Count 1.98 X10^3/uL (0.83-4.51); Absolute Neutrophil Count 4.1 X10^3/uL (2.0-7.7); Basophil# 0.04 X10^3/uL; Basophil% 0.6 % (0-1); Eosinophil# 0.32 X10^3/uL; Eosinophils% 4.5 % (0-5); Hematocrit 33.6 % (40-54); Hemoglobin 10.5 g/dL (13.0-16.5); Lymphocyte # 1.98 X10^3/ul (0.83-4.51); Lymphocyte % 27.6 % (19-41); Mean Corp Hgb Conc 31.3 g/dL (32-36); Mean Corpuscular Hgb 27.6 pg (27.0-32.0); Mean Corpuscular Volume 88.4 fL (80-94); Mean Platelet Vol. 10.4 fl (6.2-12.0); Monocyte# 0.73 X10^3/uL; Monocyte% 10.2 % (0-10); NRBC Flagged by Analyzer 0 % (0-5); Neutrophil # 4.08 X10^3/uL (2.7-7.7); Neutrophil % 56.7 % (47-70); Platelet Count 187 K/mm3 (150-450); RBC Distribution Width CV 13.1 % (11.6-14.6); RBC Distribution Width SD 42.3 fl (35.1-43.9); White Blood Count 7.2 K/mm3 (4.4-11.0)
[2023-06-06] MEDS: Heparin Injection (Vial) 5,000 UNIT/ML VIAL 5000 UNIT SC ×2 (07:35→21:44)
[2023-06-06 07:55] LABS: Bedside Glucose 193 mg/dL (74-106)
[2023-06-06 07:57] VITALS: BP 204/83; PULSE 67; RESP 16; TEMP 36.4; O2SAT 96
[2023-06-06 08:00] LABS: Anion Gap 2 (5-15); BUN 16 mg/dL (7-18); BUN/Creat Ratio 12.9 RATIO (10-20); Calcium,Total 8.6 mg/dL (8.5-10.1); Chloride 109 mmol/L (98-107); Creatinine, Serum 1.24 mg/dL (0.70-1.30); EST Glomerular Filtration Rate 62 mL/min (>60); Est Glom Filt Rate - Afr Amer 75 mL/min (>60); Estimated Creatinine Clearance 62.14 ml/min; Glucose 183 mg/dL (74-106); Potassium 3.9 mmol/L (3.5-5.1); Sodium Level 140 mmol/L (136-145)
[2023-06-06 09:14] VITALS: BP 158/118
--- NOTE | 2023-06-06 10:16 | PN.HOSP_ITS ---
Reason for Visit Reason for Visit: Diagnoses Other malaise (06/05/23) Subjective Subjective Patient was seen and examined today, he mentioned he was getting lab work drawn but I have not ordered any lab work on him. He may be referring to his kraen gerstick blood sugars. Patient also mention to the nurse taking care of him today that he was ready to go home, she reminded him that he is not able to walk or take care of himself and that he needs to go to an extended care facility for short-term rehab-I emphasized this today when I saw him. Objective Data Objective Data Vital Signs: Vital Signs Temp Pulse Resp BP Pulse Ox O2 Del Method O2 Flow Rate 97.6 F L 67 16 158/118 H 96 Nasal Cannula 4 06/06/23 07:57 06/06/23 07:57 06/06/23 07:57 06/06/23 09:14 06/06/23 07:57 06/06/23 07:57 06/06/23 09:41 Oxygen Flow Rate (L/min) 4 Oxygen Delivery Method Nasal Cannula Weight: 127.006 kg Body Mass Index (BMI) 40.1 Intake & Output: Intake and Output for Last 24 Hours 06/04/23 06/05/23 06/06/23 23:59 23:59 23:59 Intake Total 857.5 / 857.5 1230 / 1230 Output Total 500 / 500 350 / 350 Balance 357.5 / 357.5 880 / 880 Lab / Micro Data 06/06/23 07:10 06/06/23 07:10 Labs: Laboratory Results - last 24 hr 06/05/23 10:15: WBC 9.6, RBC 4.10 L, Hgb 11.4 L, Hct 36.0 L, MCV 87.8, MCH 27.8, MCHC 31.7 L, RDW Std Deviation 41.8, RDW Coeff of [place] 13.0, Plt Count 226, MPV 10.5, Immature Gran % (Auto) 0.400, Neut % (Auto) 73.2 H, Lymph % (Auto) 12.4 L, [place] % (Auto) 10.5 H, Eos % (Auto) 2.9, Baso % (Auto) 0.6, Absolute Neuts (auto) 7.1, Absolute Lymphs (auto) 1.20, Nucleated RBC % 0, Sodium 137, Potassium 3.7, Chloride 101, Carbon Dioxide 30.0, Anion Gap 6, BUN 21 H, Creatinine 1.60 H, Estim Creat Clear Calc 48.16, Est GFR (MDRD) Af Amer 56 L, Est GFR (MDRD) Non-Af 46 L, BUN/Creatinine Ratio 13.1, Glucose 240 H, Lactic Acid 1.4, Calcium 9.0, Troponin I High Sens 16, TSH 1.72 06/05/23 12:15: Urine Color Yellow, Urine Clarity Clear, Urine pH 6.0, Ur Specific [place] 1.015, Urine Protein 30 H, Urine Glucose (UA) 100 H, Urine Ketones Negative, Urine Occult Blood Negative, Urine Nitrite Negative, Urine Bilirubin Negative, Urine Urobilinogen 1 H, Ur Leukocyte Esterase Negative, Urine RBC 0 SEEN, Urine WBC 0 SEEN, Ur Squamous Epith Cells 0 SEEN, Urine Bacteria 0 SEEN, Urine Mucus 0 SEEN 06/05/23 15:41: POC Glucose 233 H 06/05/23 22:04: POC Glucose 155 H 06/06/23 07:10: WBC 7.2, RBC 3.80 L, Hgb 10.5 L, Hct 33.6 L, MCV 88.4, MCH 27.6, MCHC 31.3 L, RDW Std Deviation 42.3, RDW Coeff of [place] 13.1, Plt Count 187, MPV 10.4, Immature Gran % (Auto) 0.400, Neut % (Auto) 56.7, Lymph % (Auto) 27.6, [place] % (Auto) 10.2 H, Eos % (Auto) 4.5, Baso % (Auto) 0.6, Absolute Neuts (auto) 4.1, Absolute Lymphs (auto) 1.98, Nucleated RBC % 0, Sodium 140, Potassium 3.9, Chloride 109 H, Carbon Dioxide 29.0, Anion Gap 2 L, BUN 16, Creatinine 1.24, Estim Creat Clear Calc 62.14, Est GFR (MDRD) Af Amer 75, Est GFR (MDRD) Non-Af 62, BUN/Creatinine Ratio 12.9, Glucose 183 H, Calcium 8.6 06/06/23 07:21: POC Glucose 193 H Radiography Diagnostic Testing: Radiology Impression Chest X-Ray 06/05/23 10:45 IMPRESSION: No interval change Electronically Signed: Fredrick Aaron MD at 11:11 EDT , Rhythm Strip Rhythm Strip: Sinus Rhythm Rate: 70 Ectopy: None Physical Exam Narrative alert, oriented x3 and no apparent distress Constitutional Narrative: Patient appears older than his stated age General Appearance: cooperative, well kempt and well developed Orientation / Consciousness: awake, oriented to person, oriented to place and oriented to time HEENT normocephalic, head/scalp atraumatic, hearing grossly normal bilaterally and moist oral mucous membranes Eyes PERRL, EOMs intact bilaterally and conjunctivae normal Neck supple, no JVD, thyroid normal and no carotid bruits General: trachea midline Resp normal respiratory effort, no retractions, no use of accessory muscles and clear to auscultation bilaterally Auscultation: Negative for rales, rhonchi or wheezes Cardio regular rate, regular rhythm, S1 normal heart sound, S2 normal heart sound, no murmurs, no rub and no gallops GI normal to inspection, nondistended, normoactive bowel sounds, soft to palpation, non-tender and non-distended Extremity Extremity Narrative: Left foot is bandaged with surgical dressing, this was not removed to examine the patient's neuropathic plantar ulcer. There is noted to be a previous amputation of the patient's right foot noted with a welled healed area. Skin Skin Narrative: Patient has a plantar neuropathic ulceration on his left foot Neuro oriented x3, CN's II-XII intact bilaterally, moves all extremities and no focal motor deficits Sensorium / Orientation: awake, alert, oriented to person and oriented to place Speech: speech normal Psych affect normal Assessment & Plan Assessment/Plan (1) Declining functional status: PLAN: Plan 1. Acute on chronic debility-secondary to multiple medical problems-continue PT and OT and supportive care, patient will need at least temporary placement in a care home facility. 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- patient will be seen in consultation by podiatry, I will not start the patient on any antibiotics at this time-I do not feel it is warranted #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
--- NOTE | 2023-06-06 10:30 | PCM.CONS.GEN ---
Assessment & Plan Assessment/Plan (1) Diabetic ulcer of left foot: PLAN: Exam performed Vital signs stable No leukocytosis Previous cultures 626 demonstrate growth Enterobacter cloacae and Staph aureus both sensitive to Bactrim DS patient receiving Bactrim currently. Recommend continuation of this for 2 weeks. Wound was excisionally debrided down to including level of subcutaneous tissue of all nonviable tissue using a #10 blade bedside. No anesthesia due to neuropathy. Hemostasis obtained with light compression. Patient tolerated procedure well. Pre and postdebridement measurements documented in objective. Dressed wound with silver alginate dry sterile dressing and New bandage. Recommend dressing change every third day. Patient awaiting SNF placement. Recommend nonweightbearing left lower extremity. Patient has history of arterial disease underwent recent revascularization which did not require any intervention. We will continue to follow every third day. (2) Peripheral vascular disease, unspecified: (3) Non-pressure chronic ulcer of other part of left foot with fat layer exposed: HPI Consult Data Date of Consult: 06/06/23 HPI Narrative HPI Narrative: REA HANNA, is a 63 M who presents chronic left heel ulceration in setting of diabetes neuropathy and peripheral vascular disease. Patient recently been significantly weak unable to stand bear weight on his own. Patient was seen recently admitted for back spasms and left foot wound. Patient denies constitutional symptoms. Patient denies pain at rest the wound some pain with debridement. Home health care had not seen the patient in several days which contributed to to some increased drainage and redness to the wound site. No other complaints at current. [facility] Medical History Ambulates with cane Amputation of one or more toes Anxiety Anxiety and depression Arrhythmia Arthritis Aspiration into airway Aspiration pneumonia Atherosclerotic heart disease of [place] coronary artery without angina pectoris Back pain Back spasm Bilateral leg weakness Blind left eye Blister (nonthermal), left foot, initial encounter Bronchiectasis with (acute) exacerbation Cardiology follow-up encounter Chronic cough Chronic respiratory failure with hypoxia CKD (chronic kidney disease) COPD (chronic obstructive pulmonary disease) CPAP (continuous positive airway pressure) dependence Debility, unspecified Depression Diabetes Essential hypertension Gastric reflux GERD (gastroesophageal reflux disease) High cholesterol History of aspiration pneumonia History of diabetes mellitus History of echocardiogram History of edema History of gout History of heart attack History of non-ST elevation myocardial infarction (NSTEMI) (08/2016) History of pain when walking History of steroid therapy History of stress test Hyperglycemia due to type 2 diabetes mellitus Hypertension Insulin dependent diabetes mellitus Kidney disease Kidney stones Kidney stones Leg pain, right Leukocytosis Low back pain Memory impairment Migraines Mood disorder Myocardial infarct Non-smoker Noncompliance by declining intervention or support On home oxygen therapy Peripheral vascular occlusive disease Pneumonia Prostate disease Pulmonary nodule, left Recurrent falls Right ankle pain Right foot pain Shortness of breath on exertion Silent aspiration Sleep apnea Tremor Type 2 diabetes mellitus Type 2 diabetes mellitus with diabetic polyneuropathy Ulcer of left foot, limited to breakdown of skin 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 Wears glasses Wound of left lower extremity Home Medications acetaminophen 500 mg tablet 1,000 mg PO QHS PRN PAIN 02/11/21 [History Last Taken 05/24/23] aspirin 81 mg tablet,delayed release (Adult Aspirin Regimen) 81 mg PO DAILY HEART HEALTH 11/05/21 [History Last Taken 06/04/23] peg [id number] 1 %-0.2 %-0.2 % eye drops (Artificial Tears ([id number])) 2 drp EACH EYE Q1H PRN DRY EYES #0 mL 11/14/21 [Rx Last Taken 06/04/23] loratadine 10 mg tablet (Allergy Relief (loratadine)) 10 mg PO DAILY ALLERGIES 05/21/22 [History Last Taken 06/04/23] gauze bandage 4 X 4 (Bordered Gauze) #14 ea 07/03/22 [Rx Last Taken Unknown] walker (Ultra-Light Rollator misc) #1 ea 07/21/22 [Rx Last Taken Unknown] insulin lispro 100 unit/mL subcutaneous pen sliding scale dose subcut ACHS DIABETES 08/12/22 [History Last Taken 06/04/23] pen needle, diabetic 33 gauge x 5/16 #200 ea 12/02/22 [Rx Last Taken Unknown] insulin lispro 100 unit/mL subcutaneous pen (Humalog KwikPen (U-100) Insulin) 14 unit (0.14 mL) subcut TIDAC 3 months #37.8 mL 03/04/23 [Rx Last Taken 06/04/23] fluoxetine 20 mg capsule 20 mg PO DAILY ANXIETY 03/23/23 [History Last Taken 06/04/23] melatonin 3 mg tablet 3 mg PO QHS INSOMNIA 03/23/23 [History Last Taken 06/04/23] albuterol sulfate 90 mcg/actuation aerosol inhaler 2 puff inhalation Q4H PRN SHORTNESS OF BREATH/WHEEZING 05/25/23 [History Last Taken Unknown] amlodipine 2.5 mg tablet 2.5 mg PO DAILY BLOOD PRESSURE 05/25/23 [History Last Taken 06/04/23] atorvastatin 80 mg tablet 80 mg PO QHS CHOLESTEROL 05/25/23 [History Last Taken 06/04/23] buspirone 7.5 mg tablet 7.5 mg PO TID ANXIETY 05/25/23 [History Last Taken 06/04/23] carvedilol 12.5 mg tablet 25 mg PO BID HEART 05/25/23 [History Last Taken 06/04/23] finasteride 5 mg tablet 5 mg PO DAILY PROSTATE 05/25/23 [History Last Taken 06/04/23] fluoxetine 40 mg capsule 40 mg PO DAILY ANXIETY 05/25/23 [History Last Taken 06/04/23] furosemide 40 mg tablet 40 mg PO DAILY FLUID 05/25/23 [History Last Taken 06/04/23] hydroxyzine HCl 25 mg tablet 25 mg PO QHS PRN ANXIETY 05/25/23 [History Last Taken 06/04/23] insulin detemir U-100 100 unit/mL (3 mL) subcutaneous pen (Levemir FlexPen) 40 unit subcut QHS DIABETES 05/25/23 [History Last Taken 06/04/23] losartan 50 mg tablet 50 mg PO DAILY BLOOD PRESSURE 05/25/23 [History Last Taken 06/04/23] nitroglycerin 0.4 mg sublingual tablet 0.4 mg sublingual Q5M PRN CHEST PAIN 05/25/23 [History Last Taken Unknown] nystatin 100,000 unit/gram topical powder (Nyamyc) 1 applic topical BID SKIN INFECTIONS 05/25/23 [History Last Taken Unknown] pantoprazole 40 mg tablet,delayed release 40 mg PO DAILY ACID REFLUX 05/25/23 [History Last Taken 06/04/23] trazodone 150 mg tablet 150 mg PO QHS INSOMNIA 05/25/23 [History Last Taken 06/04/23] clopidogrel 75 mg tablet 75 mg PO DAILY BLOOD THINNER #30 tabs 05/28/23 [Rx Last Taken 06/04/23] isosorbide mononitrate 30 mg tablet,extended release 24 hr 30 mg PO DAILY HEART #30 tabs 05/28/23 [Rx Last Taken 06/04/23] pregabalin 75 mg capsule (Lyrica) 75 mg PO BID PAIN #60 caps 05/28/23 [Rx Last Taken 06/04/23] sulfamethoxazole 800 mg-trimethoprim 160 mg tablet (Bactrim DS) 1 tab PO BID 7 days #14 tabs 06/01/23 [Rx Last Taken 06/04/23] Allergy/AdvReac Type Severity Reaction Status Date / Time allopurinol AdvReac Vomiting Verified 06/05/23 10:12 Influenza Virus Vaccines AdvReac Vomiting Verified 06/05/23 10:12 pneumococcal vaccine AdvReac Vomiting Verified 06/05/23 10:12 Family History Mother Diabetes Heart disease CHF Father Heart disease [place]/CAD Myocardial infarction Surgical History H/O lithotripsy History of angioplasty of peripheral vessel (2016) History of angioplasty of peripheral vessel History of ankle surgery History of cardiac catheterization History of coronary artery stent placement (08/2016) History of coronary artery stent placement History of esophagogastroduodenoscopy (EGD) History of left heart catheterization (11/15/17) History of thyroid surgery Hx of lithotripsy Hx of surgery to heart and great vessels, presenting hazards to health Hx of surgical procedure Hx of thyroidectomy Hx of toe surgery Hx of toe surgery PEG (percutaneous endoscopic gastrostomy) status Social History household members: spouse housing: apartment Smoking Status: Never smoker alcohol intake: never substance use type: does not use ROS Constitutional Constitutional: Denies change in weight, chills or headache(s) Eyes Eyes: Denies acute decrease in peripheral vision, change in eye color or discongugate gaze ENT HEENT: Denies bleeding gums, ear pain or lip swelling Cardiovascular Cardiovascular: Denies abdominal edema, abdominal pain or arrhythmia on telemetry Respiratory/Chest Respiratory/Chest: Denies change in phlegm color, dusky skin or dyspnea Gastrointestinal Gastrointestinal: Denies belching, bloating or constipation Musculoskeletal Musculoskeletal: Reports back pain, difficulty walking and extremity pain Integumentary Integumentary: Reports dry skin, erythema and lesions Physical Exam Narrative TMA on the right side. Dorsalis pedis posterior tibial pulses palpable 2 out of 4 to bilateral lower extremity. +1 pitting edema noted bilateral lower extremity. Light touch protective sensation absent to bilateral feet. Full-thickness wound noted to plantar heel measuring 3.0 x 2.5 x 0.2 cm predebridement postdebridement wound was 3.2 x 2.6 x 0.3 cm with a clean 100% granular base. No deep probing or undermining. Some periwound erythema and edema with serous wound drainage. No deep fluctuance or crepitus Muscular strength diminished bilaterally all lower extremity compartment Lab / Micro Data 06/06/23 07:10 06/06/23 07:10 Labs: Laboratory Results - last 24 hr 06/05/23 10:15: WBC 9.6, RBC 4.10 L, Hgb 11.4 L, Hct 36.0 L, MCV 87.8, MCH 27.8, MCHC 31.7 L, RDW Std Deviation 41.8, RDW Coeff of James 13.0, Plt Count 226, MPV 10.5, Immature Gran % (Auto) 0.400, Neut % (Auto) 73.2 H, Lymph % (Auto) 12.4 L, [place] % (Auto) 10.5 H, Eos % (Auto) 2.9, Baso % (Auto) 0.6, Absolute Neuts (auto) 7.1, Absolute Lymphs (auto) 1.20, Nucleated RBC % 0, Sodium 137, Potassium 3.7, Chloride 101, Carbon Dioxide 30.0, Anion Gap 6, BUN 21 H, Creatinine 1.60 H, Estim Creat Clear Calc 48.16, Est GFR (MDRD) Af Amer 56 L, Est GFR (MDRD) Non-Af 46 L, BUN/Creatinine Ratio 13.1, Glucose 240 H, Lactic Acid 1.4, Calcium 9.0, Troponin I High Sens 16, TSH 1.72 06/05/23 12:15: Urine Color Yellow, Urine Clarity Clear, Urine pH 6.0, Ur Specific [place] 1.015, Urine Protein 30 H, Urine Glucose (UA) 100 H, Urine Ketones Negative, Urine Occult Blood Negative, Urine Nitrite Negative, Urine Bilirubin Negative, Urine Urobilinogen 1 H, Ur Leukocyte Esterase Negative, Urine RBC 0 SEEN, Urine WBC 0 SEEN, Ur Squamous Epith Cells 0 SEEN, Urine Bacteria 0 SEEN, Urine Mucus 0 SEEN 06/05/23 15:41: POC Glucose 233 H 06/05/23 22:04: POC Glucose 155 H 06/06/23 07:10: WBC 7.2, RBC 3.80 L, Hgb 10.5 L, Hct 33.6 L, MCV 88.4, MCH 27.6, MCHC 31.3 L, RDW Std Deviation 42.3, RDW Coeff of James 13.1, Plt Count 187, MPV 10.4, Immature Gran % (Auto) 0.400, Neut % (Auto) 56.7, Lymph % (Auto) 27.6, [place] % (Auto) 10.2 H, Eos % (Auto) 4.5, Baso % (Auto) 0.6, Absolute Neuts (auto) 4.1, Absolute Lymphs (auto) 1.98, Nucleated RBC % 0, Sodium 140, Potassium 3.9, Chloride 109 H, Carbon Dioxide 29.0, Anion Gap 2 L, BUN 16, Creatinine 1.24, Estim Creat Clear Calc 62.14, Est GFR (MDRD) Af Amer 75, Est GFR (MDRD) Non-Af 62, BUN/Creatinine Ratio 12.9, Glucose 183 H, Calcium 8.6 06/06/23 07:21: POC Glucose 193 H Rhythm Strip Rhythm Strip: Sinus Rhythm Rate: 70 Ectopy: None Radiology Impression Chest X-Ray 06/05/23 10:45 IMPRESSION: No interval change Electronically Signed: Fredrick Aaron MD at 11:11 EDT Reading Location ID and State: [facility] / [place] , Service support ,
[2023-06-06 11:32] VITALS: BP 130/81; PULSE 62; RESP 16; TEMP 36.5; O2SAT 99
[2023-06-06 11:38] LABS: Bedside Glucose 133 mg/dL (74-106)
[2023-06-06 15:45] VITALS: BP 122/77; PULSE 61; RESP 16; TEMP 36.7; O2SAT 98
[2023-06-06 16:41] LABS: Bedside Glucose 128 mg/dL (74-106)
[2023-06-06] MEDS: Atorvastatin Calcium 80 MG Tablet PO (21:43)
[2023-06-06] MEDS: traZODone 100 MG Tablet 150 MG PO (21:43)
[2023-06-06 21:45] VITALS: BP 139/94; PULSE 63; RESP 18; TEMP 37.2; O2SAT 97
[2023-06-06] MEDS: MELATONIN 3 MG TABLET PO (21:45)
[2023-06-06] MEDS: Insulin Glargine-YFGN 100 UNIT/ML Pen 40 UNIT SC (22:17)
[2023-06-06 23:11] LABS: Bedside Glucose 97 mg/dL (74-106)
[2023-06-07 03:38] VITALS: BP 157/78; PULSE 52; RESP 16; TEMP 36.4; O2SAT 100
[2023-06-07] MEDS: busPIRone 15 MG TABLET 7.5 MG PO ×3 (06:08→22:15)
[2023-06-07 06:53] LABS: Bedside Glucose 105 mg/dL (74-106)
[2023-06-07] MEDS: Fluoxetine HCl 40 MG CAPSULE PO (07:47)
[2023-06-07] MEDS: amLODIPine 2.5 MG Tablet PO (07:47)
[2023-06-07] MEDS: Isosorbide Mononitrate 30 MG Tablet PO (07:47)
[2023-06-07] MEDS: Losartan Potassium 50 MG Tablet PO (07:47)
[2023-06-07] MEDS: FLUoxetine 20 MG Capsule PO (07:47)
[2023-06-07] MEDS: Pantoprazole Sodium 40 MG Tablet PO (07:48)
[2023-06-07] MEDS: Furosemide 40 MG Tablet PO (07:48)
[2023-06-07] MEDS: Finasteride 5 MG Tablet PO (07:48)
[2023-06-07] MEDS: Aspirin E.C. 81 MG Tablet PO (07:48)
[2023-06-07] MEDS: Nystatin Powder 15gm Bottle 1 APPLIC TOPICAL ×2 (07:48→22:18)
[2023-06-07] MEDS: Clopidogrel Bisulfate 75 MG Tablet PO (07:48)
[2023-06-07] MEDS: Carvedilol 25 MG Tablet PO ×2 (07:48→17:13)
[2023-06-07] MEDS: Pregabalin 75 MG Capsule PO ×2 (07:53→22:10)
[2023-06-07] MEDS: 0.9% Normal Saline 1,000 ML 100 ML IV ×2 (07:56→17:16)
[2023-06-07 08:27] VITALS: BP 184/106; PULSE 52; RESP 16; TEMP 36.5; O2SAT 99
[2023-06-07] MEDS: Menthol/Lanolin/Calamine/Znox 113 GM Tube 1 APPLIC TOPICAL ×2 (09:12→22:18)
[2023-06-07] MEDS: Heparin Injection (Vial) 5,000 UNIT/ML VIAL 5000 UNIT SC ×2 (09:12→22:13)
[2023-06-07] MEDS: Insulin Lispro 100 UNIT/ML INSULN.PEN 14 UNIT SC ×3 (09:12→17:13)
--- NOTE | 2023-06-07 09:15 | CASEMGMT ---
Discharge Planning SNF list created and given to SW. Nuria Singh, Discharge Planning Asst.
--- NOTE | 2023-06-07 10:33 | WOUNDNOTE ---
wound photo: left plantar heel
[2023-06-07 11:18] VITALS: BP 128/71; PULSE 62; RESP 16; TEMP 36.5; O2SAT 99
--- NOTE | 2023-06-07 11:19 | CASEMGMT ---
[facility] NOTE: Intro role of CM to patient and GOMEZ form explained re: Observation status for treatment of debility.? Explained hospitalization will be paid per his insurance policy for Outpatient billing?and condition will continue to be evaluated for Inpt necessity. Also let pt know that [facility] sends paper in the billing packet with their phone number if questions arise. Pt verbalizes understanding and does not have further questions. ?Form signed, copy made and placed in chart, and original given to pt. Zelalem BACA RN CM
[2023-06-07 11:29] LABS: Bedside Glucose 101 mg/dL (74-106)
[2023-06-07 15:17] VITALS: BP 151/83; PULSE 55; RESP 16; TEMP 36.6; O2SAT 99
--- NOTE | 2023-06-07 16:22 | CHAPLAIN ---
Type of Pastoral Visit _x_ Initial Visit ___ Follow-up Visit ___ On-call Visit ___ General Patient Visit ___ Spiritual Assessment ___ Family Conference ___ Bereavement ___ Rapid Response ___ Code Blue ___ Other (describe below) Pastoral Care Referral From _x__ Patient ___ Family ___ Nurse ___ Physician ___ Certified Maintenance Welder ___ Prekindergarten Teacher ___ Other (describe below) Sacrament/Intervention _x__ Active listening ___ Anointing ___ Adventist ___ Bereavement ___ Communion ___ Sarai exploration ___ ___ Life review _x__ Prayer ___ Reconciliation ___ Sacrament of Sick ___ Supportive presence ___ Wedding ___ Other (describe below) Pastoral Comments patient has been seen in previous admissions; pt gives update; pt acknowledges inability to go home as he is now and is planning to go to a [facility] for rehab; pt wonders out loud how that will be for him; pt given time to talk and a prayer
[2023-06-07 16:54] LABS: Bedside Glucose 64 mg/dL (74-106)
--- NOTE | 2023-06-07 17:43 | PN.HOSP_ITS ---
Reason for Visit Reason for Visit: Diagnoses Type 2 diabetes mellitus with foot ulcer (06/05/23) Peripheral vascular disease, unspecified (06/05/23) Non-pressure chronic ulcer of other part of left foot with fat layer exposed (06/05/23) Non-pressure chronic ulcer of other part of left foot with unspecified severity (06/05/23) Other malaise (06/05/23) Subjective Subjective Patient was seen and examined today, we are awaiting approval for him to go to halfway facility for short-term rehab services. Talked briefly with podiatry, they did not feel the patient's foot wound needed to be treated with antibiotics. Objective Data Objective Data Vital Signs: Vital Signs Temp Pulse Resp BP Pulse Ox O2 Del Method O2 Flow Rate 97.8 F 55 L 16 151/83 H 99 Room Air 4 06/07/23 15:17 06/07/23 15:17 06/07/23 15:17 06/07/23 15:17 06/07/23 15:17 06/07/23 15:17 06/07/23 14:00 Oxygen Flow Rate (L/min) 4 Oxygen Delivery Method Room Air Weight: 127.006 kg Body Mass Index (BMI) 40.1 Intake & Output: Intake and Output for Last 24 Hours 06/05/23 06/06/23 06/07/23 23:59 23:59 23:59 Intake Total 857.5 / 857.5 3818.33 / 3818.33 2933.33 / 2933.33 Output Total 500 / 500 1950 / 2350 2400 / 2400 Balance 357.5 / 357.5 1868.33 / 1468.33 533.33 / 533.33 Lab / Micro Data 06/06/23 07:10 06/06/23 07:10 Labs: Laboratory Results - last 24 hr 06/06/23 21:57: POC Glucose 97 06/07/23 06:12: POC Glucose 105 06/07/23 11:00: POC Glucose 101 06/07/23 16:32: POC Glucose 64 L Rhythm Strip Rhythm Strip: Sinus Rhythm Rate: 70 Ectopy: None Physical Exam Narrative lert, oriented x3 and no apparent distress Constitutional Narrative: Patient appears older than his stated age General Appearance: cooperative, well kempt and well developed Orientation / Consciousness: awake, oriented to person, oriented to place and oriented to time HEENT normocephalic, head/scalp atraumatic, hearing grossly normal bilaterally and moist oral mucous membranes Eyes PERRL, EOMs intact bilaterally and conjunctivae normal Neck supple, no JVD, thyroid normal and no carotid bruits General: trachea midline Resp normal respiratory effort, no retractions, no use of accessory muscles and clear to auscultation bilaterally Auscultation: Negative for rales, rhonchi or wheezes Cardio regular rate, regular rhythm, S1 normal heart sound, S2 normal heart sound, no murmurs, no rub and no gallops GI normal to inspection, nondistended, normoactive bowel sounds, soft to palpation, non-tender and non-distended Extremity Extremity Narrative: Left foot is bandaged with surgical dressing, this was not removed to examine the patient's neuropathic plantar ulcer. There is noted to be a previous amputation of the patient's right foot noted with a welled healed area. Skin Skin Narrative: Patient has a plantar neuropathic ulceration on his left foot Neuro oriented x3, CN's II-XII intact bilaterally, moves all extremities and no focal motor deficits, patient has a resting tremor at time Sensorium / Orientation: awake, alert, oriented to person and oriented to place Speech: speech normal Psych affect normal Assessment & Plan Assessment/Plan (1) Declining functional status: PLAN: Plan 1. Acute on chronic debility-secondary to multiple medical problems-continue PT and OT and supportive care, patient will need at least temporary placement in a halfway facility. 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- patient will be seen in consultation by podiatry, I will not start the patient on any antibiotics at this time-I do not feel it is warranted #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
[2023-06-07] MEDS: MELATONIN 3 MG TABLET PO (22:15)
[2023-06-07] MEDS: Atorvastatin Calcium 80 MG Tablet PO (22:15)
[2023-06-07] MEDS: traZODone 100 MG Tablet 150 MG PO (22:15)
[2023-06-07 22:28] VITALS: BP 155/90; PULSE 55; RESP 18; TEMP 36.6; O2SAT 100
[2023-06-07 22:45] LABS: Bedside Glucose 89 mg/dL (74-106)
[2023-06-08] MEDS: 0.9% Normal Saline 1,000 ML 100 ML IV ×2 (02:58→11:31)
[2023-06-08 03:01] VITALS: BP 136/82; PULSE 64; RESP 16; TEMP 36.6; O2SAT 100
[2023-06-08] MEDS: busPIRone 15 MG TABLET 7.5 MG PO ×2 (06:19→14:13)
--- NOTE | 2023-06-08 07:37 | PCM.PROGNOTE ---
Subjective Subjective Patient was seen this morning for follow up on left heel ulcer. He is resting comfortably in bed, no other complaints. No fever. Objective Data Objective Data Vital Signs: Vital Signs Temp Pulse Resp BP Pulse Ox O2 Del Method O2 Flow Rate 97.9 F 64 16 136/82 H 100 Nasal Cannula 4 06/08/23 03:01 06/08/23 03:01 06/08/23 03:01 06/08/23 03:01 06/08/23 03:01 06/08/23 03:02 06/08/23 03:01 Oxygen Flow Rate (L/min) 4 Oxygen Delivery Method Nasal Cannula Weight: 127.006 kg Body Mass Index (BMI) 40.1 Intake & Output: Intake and Output for Last 24 Hours 06/06/23 06/07/23 06/08/23 23:59 23:59 23:59 Intake Total 3818.33 / 3818.33 2933.33 / 2933.33 970 / 970 Output Total 1950 / 2350 3000 / 3000 500 / 500 Balance 1868.33 / 1468.33 -66.67 / -66.67 470 / 470 Lab / Micro Data 06/06/23 07:10 06/06/23 07:10 Labs: Laboratory Results - last 24 hr 06/07/23 11:00: POC Glucose 101 06/07/23 16:32: POC Glucose 64 L 06/07/23 22:12: POC Glucose 89 Rhythm Strip Rhythm Strip: Sinus Rhythm Rate: 70 Ectopy: None Physical Exam Narrative TMA on the right side. Left heel with full-thickness wound noted to plantar heel, stable, has viable margins and granular base. No deep probing or undermining, no evidence of cellulitis, no fluctuance or crepitus, no maloder, no visible abscess. No evidence of acute ischemia noted. Const alert and no apparent distress Assessment & Plan Assessment/Plan (1) Diabetic ulcer of left foot: PLAN: Exam performed. No leukocytosis. Left heel ulcer is stable. Has been recently debrided over weekend. Previous cultures 05/24 demonstrate growth Enterobacter cloacae and Staph aureus both sensitive to Bactrim DS patient receiving Bactrim currently. Continue with local wound care - silver alginate dry sterile dressing and New bandage. Patient awaiting SNF placement. Recommend nonweightbearing left lower extremity. Patient has history of arterial disease underwent recent vascular procedure. Podiatry will continue to follow every third day. (2) Peripheral vascular disease, unspecified: (3) Non-pressure chronic ulcer of other part of left foot with fat layer exposed:
[2023-06-08] MEDS: Pregabalin 75 MG Capsule PO (08:11)
[2023-06-08] MEDS: FLUoxetine 20 MG Capsule PO (08:12)
[2023-06-08] MEDS: Menthol/Lanolin/Calamine/Znox 113 GM Tube 1 APPLIC TOPICAL (08:12)
[2023-06-08] MEDS: Furosemide 40 MG Tablet PO (08:12)
[2023-06-08] MEDS: Finasteride 5 MG Tablet PO (08:12)
[2023-06-08] MEDS: Carvedilol 25 MG Tablet PO ×2 (08:12→16:36)
[2023-06-08] MEDS: Fluoxetine HCl 40 MG CAPSULE PO (08:12)
[2023-06-08] MEDS: Nystatin Powder 15gm Bottle 1 APPLIC TOPICAL (08:12)
[2023-06-08] MEDS: Isosorbide Mononitrate 30 MG Tablet PO (08:12)
[2023-06-08] MEDS: Aspirin E.C. 81 MG Tablet PO (08:12)
[2023-06-08] MEDS: Heparin Injection (Vial) 5,000 UNIT/ML VIAL 5000 UNIT SC (08:13)
[2023-06-08] MEDS: Pantoprazole Sodium 40 MG Tablet PO (08:13)
[2023-06-08] MEDS: Losartan Potassium 50 MG Tablet PO (08:13)
[2023-06-08] MEDS: amLODIPine 2.5 MG Tablet PO (08:13)
[2023-06-08] MEDS: Clopidogrel Bisulfate 75 MG Tablet PO (08:13)
[2023-06-08 08:20] VITALS: BP 183/89; PULSE 53; RESP 18; TEMP 36.5; O2SAT 100
[2023-06-08 08:23] LABS: Bedside Glucose 119 mg/dL (74-106)
--- NOTE | 2023-06-08 08:55 | CASEMGMT ---
Social Work SW met with pt and discussed discharge plan. Pt is agreeable to SNF placement. A list of SNF providers including quality and resource use data and consistent with the patient?s preferred geographic region, medical needs, and insurance network were provided from the [facility] Guide. Pt preferred provider is [facility]. Referral to the [facility] and they are able to accept. PASRR completed in [facility] and forwarded to [facility]. Precert to be started at this time. Pt updated and agreeable. Plan: [facility], pending precert MINISTERIO Gallagher
[2023-06-08] MEDS: Insulin Lispro 100 UNIT/ML INSULN.PEN 14 UNIT SC ×2 (09:04→11:34)
[2023-06-08 10:00] VITALS: BP 122/55; PULSE 58
[2023-06-08 12:07] LABS: Bedside Glucose 145 mg/dL (74-106)
[2023-06-08 14:20] VITALS: BP 141/90; PULSE 60; RESP 18; TEMP 36.6; O2SAT 100
--- NOTE | 2023-06-08 15:07 | TREXTCAR_ITS ---
Diet Diet Order/Speech Therapy: 06/05/23 15:05 Diet: Consistent Carb - Calorie Controlled Food consistency:: Regular Liquid Consistency:: Regular/Thin How many daily calories?: 1800 calorie Routine Orders/Code Status O2 Liters per Minute: 4 O2 Frequency: Continuous Keep PO Greater than or Equal to (%): 90 Routine Lab Work: - (Fingerstick blood sugars AC nightly, Humalog subcu per sliding scale: 200-250: 5 units, 251-300: 8 units, 301-350: 12 units) Code Status: Full Code Wound(s) left foot: Wound Type: Neuropathic/Diabetic Foot Ulcer Dressing Change: AntiMicrobial (Aquacel AG, etc) right bottock: Wound Type: Pressure Injury Therapies Weight Bearing: Non weight bearing (left foot) Physical Therapy: Eval and Treat Occupational Therapy: Eval and Treat Problem/Diagnosis (1) Diabetic ulcer of left foot: Status: Acute Code(s): E11.621 - Type 2 diabetes mellitus with foot ulcer; L97.529 - Non-pressure chronic ulcer of other part of left foot with unspecified severity (2) Peripheral vascular disease, unspecified: Status: Acute Code(s): I73.9 - Peripheral vascular disease, unspecified (3) Non-pressure chronic ulcer of other part of left foot with fat layer exposed: Status: Chronic Code(s): L97.522 - Non-pressure chronic ulcer of other part of left foot with fat layer exposed Plan 1. Acute on chronic debility-secondary to multiple medical problems-continue PT and OT and supportive care, patient will need at least temporary placement in a half-way facility. 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- patient will be seen in consultation by podiatry, I will not start the patient on any antibiotics at this time-I do not feel it is warranted #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-complicates care, medical course, recovery, and prognosis #9 chronic obstructive pulmonary disease-patient will remain on aerosol treatments #10 chronic anxiety and depression-patient will remain on his home medications #11 essential hypertension-patient will remain on his home medications Total clinical time spent by myself addressing patient's medical issues, reviewing all of his data, and collaborating with patient's care team: 25 minutes Allergies/Procedures Done in Hospital Allergies allopurinol Adverse Reaction (Verified 06/05/23 10:12) Vomiting Influenza Virus Vaccines Adverse Reaction (Verified 06/05/23 10:12) Vomiting pneumococcal vaccine Adverse Reaction (Verified 06/05/23 10:12) Vomiting Procedures: None Type of Care/Length of Stay Estimated LOS: Convalescent Care Less Than 30 days Type of Care Needed: Skilled Rehab Potential: Good Prognosis: Good Additional Orders/Day of Discharge H&P will serve as current which was dated: 06/05/23 Day of Discharge: 06/08/23 Discharge Plan Admission Admit Date/Time: 06/05/23 13:46 Primary Reason for Your Visit: Debility Attending Provider: Rubio Miller Primary Care Provider: Doretha Brown Consulting Providers: Jason Hess Discharge Orders/Prescriptions Prescriptions: New insulin glargine-yfgn 100 unit/mL (3 mL) Insulin Pen 25 unit subcut QHS Qty: 0 0RF insulin lispro [Humalog KwikPen Insulin] 100 unit/mL Insulin Pen 14 unit subcut TIDAC Qty: 0 0RF menthol-zinc oxide [Calmoseptine] 0.44-20.6 % Ointment 1 applic topical BID Qty: 0 0RF Protocol: *Topical Application Instructions APPLICATION INSTRUCTIONS: buttock Continued aspirin [Adult Aspirin Regimen] 81 mg tablet,delayed release (DR/EC) 81 mg PO DAILY melatonin 3 mg tablet 3 mg PO QHS fluoxetine 20 mg capsule 20 mg PO DAILY acetaminophen 500 MG tablet 1,000 mg PO QHS PRN (Reason: PAIN ) Artificial Tears([id number]) 1-0.2-0.2 % Drops 2 drp EACH EYE Q1H PRN (Reason: DRY EYES) Qty: 0 0RF losartan 50 mg tablet 50 mg PO DAILY fluoxetine 40 mg capsule 40 mg PO DAILY trazodone 150 mg tablet 150 mg PO QHS carvedilol 12.5 mg tablet 25 mg PO BID amlodipine 2.5 mg tablet 2.5 mg PO DAILY pantoprazole 40 mg tablet,delayed release (DR/EC) 40 mg PO DAILY buspirone 7.5 mg tablet 7.5 mg PO TID hydroxyzine HCl 25 mg tablet 25 mg PO QHS PRN (Reason: ANXIETY ) furosemide 40 mg tablet 40 mg PO DAILY atorvastatin 80 mg tablet 80 mg PO QHS nystatin [Nyamyc] 100,000 unit/gram powder 1 applic topical BID Protocol: *Topical Application Instructions APPLICATION INSTRUCTIONS: to groin finasteride 5 mg tablet 5 mg PO DAILY clopidogrel 75 mg tablet 75 mg PO DAILY Qty: 30 1RF isosorbide mononitrate 30 mg tablet extended release 24 hr 30 mg PO DAILY Qty: 30 1RF pregabalin [Lyrica] 75 mg capsule 75 mg PO BID Qty: 60 0RF Discontinued loratadine [Allergy Relief (loratadine)] 10 mg tablet 10 mg PO DAILY insulin lispro [Humalog KwikPen Insulin] 100 unit/mL insulin pen 14 unit subcut TIDAC 90 Days Qty: 37.8 2RF insulin lispro 100 unit/mL insulin pen subcut ACHS Patient Comments: INJECT subcuaneously 8-16 units 5 (FIVE) times daily per sliding scale.] nitroglycerin 0.4 mg tablet, sublingual 0.4 mg SL Q5M PRN (Reason: CHEST PAIN ) albuterol sulfate 90 mcg/actuation HFA aerosol inhaler 2 puff inhalation Q4H PRN (Reason: SHORTNESS OF BREATH/WHEEZING ) Rx Instructions: administer with spacer sulfamethoxazole-trimethoprim [Bactrim DS] 800-160 mg tablet 1 tab PO BID 7 Days Qty: 14 0RF No Action (DME) Ultra-Light Rollator Misc See Rx Instructions .Route Qty: 1 2RF Rx Instructions: As directed (DME) pen needle, diabetic 33 gauge x 5/16 needle See Rx Instructions .Route Qty: 200 3RF Rx Instructions: As directed (DME) gauze bandage [Bordered Gauze] 4 X 4 bandage See Rx Instructions .ROUTE .MEDSUPPLY Qty: 14 2RF Rx Instructions: Daily cleanse left foot wound with soap and water, dry and apply Betadine solution and apply clean dressing Levemir FlexPen 100 unit/mL (3 mL) insulin pen 40 unit SUBCUT QHS Referrals / Follow Up: Jason Hess DPM [Med Staff - Active Staff] - See Referral Note (Call office to arrange follow-up appointment) Doretha Brown MD [Primary Care Provider] - Disposition Disposition (needs filled in before D/C Order can be placed): Detention Facility
--- NOTE | 2023-06-08 15:15 | PCM.DC.SUM ---
Providers Date of Admission: 06/05/23 Date of Discharge: 06/08/23 Primary Care Physician: Dr. Doretha Brown MD Consultations 06/05/23 15:05 Consult: Podiatry Routine Consulting Provider: Jason Hess Reason for Consult: left foot wound EMERGENT Consult: No MD Notified: Yes Date Notified: 06/05/23 Time Notified: 14:02 Method of Notification: Verbal 06/07/23 10:28 Consult: Onc/Wound/retail wireless sales representative Routine Comment: Reason for Consult:: left foot wound Reason For Visit: DEBILITY Diagnosis Discharge Diagnosis (1) Diabetic ulcer of left foot: Status: Acute Code(s): E11.621 - Type 2 diabetes mellitus with foot ulcer; L97.529 - Non-pressure chronic ulcer of other part of left foot with unspecified severity (2) Peripheral vascular disease, unspecified: Status: Acute Code(s): I73.9 - Peripheral vascular disease, unspecified (3) Non-pressure chronic ulcer of other part of left foot with fat layer exposed: Status: Chronic Code(s): L97.522 - Non-pressure chronic ulcer of other part of left foot with fat layer exposed Plan 1. Acute on chronic debility-secondary to multiple medical problems-continue PT and OT and supportive care, patient will need at least temporary placement in a shelter facility. 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-patient will be seen in consultation by podiatry, I will not start the patient on any antibiotics at this time-I do not feel it is warranted #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-complicates care, medical course, recovery, and prognosis #9 chronic obstructive pulmonary disease-patient will remain on aerosol treatments #10 chronic anxiety and depression-patient will remain on his home medications #11 essential hypertension-patient will remain on his home medications Total clinical time spent by myself addressing patient's medical issues, reviewing all of his data, and collaborating with patient's care team: 25 minutes Medications at Discharge Home Medications acetaminophen 500 mg tablet 1,000 mg PO QHS PRN PAIN 02/11/21 aspirin 81 mg tablet,delayed release (Adult Aspirin Regimen) 81 mg PO DAILY HEART HEALTH 11/05/21 peg [id number] 1 %-0.2 %-0.2 % eye drops (Artificial Tears ([id number])) 2 drp EACH EYE Q1H PRN DRY EYES #0 mL 11/14/21 gauze bandage 4 X 4 (Bordered Gauze) #14 ea 07/03/22 walker (Ultra-Light Rollator [facility]) #1 ea 07/21/22 pen needle, diabetic 33 gauge x 04/13 #200 ea 12/02/22 fluoxetine 20 mg capsule 20 mg PO DAILY ANXIETY 03/23/23 melatonin 3 mg tablet 3 mg PO QHS INSOMNIA 03/23/23 amlodipine 2.5 mg tablet 2.5 mg PO DAILY BLOOD PRESSURE 05/25/23 atorvastatin 80 mg tablet 80 mg PO QHS CHOLESTEROL 05/25/23 buspirone 7.5 mg tablet 7.5 mg PO TID ANXIETY 05/25/23 carvedilol 12.5 mg tablet 25 mg PO BID HEART 05/25/23 finasteride 5 mg tablet 5 mg PO DAILY PROSTATE 05/25/23 fluoxetine 40 mg capsule 40 mg PO DAILY ANXIETY 05/25/23 furosemide 40 mg tablet 40 mg PO DAILY FLUID 05/25/23 hydroxyzine HCl 25 mg tablet 25 mg PO QHS PRN ANXIETY 05/25/23 insulin detemir U-100 100 unit/mL (3 mL) subcutaneous pen (Levemir FlexPen) 40 unit subcut QHS DIABETES 05/25/23 losartan 50 mg tablet 50 mg PO DAILY BLOOD PRESSURE 05/25/23 nystatin 100,000 unit/gram topical powder (Nyamyc) 1 applic topical BID SKIN INFECTIONS 05/25/23 pantoprazole 40 mg tablet,delayed release 40 mg PO DAILY ACID REFLUX 05/25/23 trazodone 150 mg tablet 150 mg PO QHS INSOMNIA 05/25/23 clopidogrel 75 mg tablet 75 mg PO DAILY BLOOD THINNER #30 tabs 05/28/23 isosorbide mononitrate 30 mg tablet,extended release 24 hr 30 mg PO DAILY HEART #30 tabs 05/28/23 pregabalin 75 mg capsule (Lyrica) 75 mg PO BID PAIN #60 caps 05/28/23 insulin glargine-yfgn 100 unit/mL (3 mL) subcutaneous pen 25 unit (0.25 mL) subcut QHS #0 mL 06/08/23 insulin lispro 100 unit/mL subcutaneous pen (Humalog KwikPen (U-100) Insulin) 14 unit (0.14 mL) subcut TIDAC #0 mL 06/08/23 menthol 0.44 %-zinc oxide 20.6 % topical ointment (Calmoseptine) 1 applic topical BID #0 grams 06/08/23 Hospital Course Operations None Procedures None Summary of Care Provided Minutes Spent on Discharge: 31 Hospital Course: 63-year-old white male was seen in the emergency room at [facility] with complaints of inability to perform ADLs at home and take care of himself, he complained of generalized debility. Patient had refused in the past to go to an extended care facility for inpatient rehab services, this time he consented to temporary placement for skilled services. Patient was placed in observation status on [facility] 3, he was seen by PT and OT, he was maintained on his home medications. We received approval from his insurance company for inpatient rehab services on 06/08/2023. On 06/08/2023, patient was seen and examined:alert, oriented x3 and no apparent distress Constitutional Narrative: Patient appears older than his stated age General Appearance: cooperative, well kempt and well developed Orientation / Consciousness: awake, oriented to person, oriented to place and oriented to time HEENT normocephalic, head/scalp atraumatic, hearing grossly normal bilaterally and moist oral mucous membranes Eyes PERRL, EOMs intact bilaterally and conjunctivae normal Neck supple, no JVD, thyroid normal and no carotid bruits General: trachea midline Resp normal respiratory effort, no retractions, no use of accessory muscles and clear to auscultation bilaterally Auscultation: Negative for rales, rhonchi or wheezes Cardio regular rate, regular rhythm, S1 normal heart sound, S2 normal heart sound, no murmurs, no rub and no gallops GI normal to inspection, nondistended, normoactive bowel sounds, soft to palpation, non-tender and non-distended Extremity Extremity Narrative: Left foot is bandaged with surgical dressing, this was not removed to examine the patient's neuropathic plantar ulcer. There is noted to be a previous amputation of the patient's right foot noted with a welled healed area. Skin Skin Narrative: Patient has a plantar neuropathic ulceration on his left foot Neuro oriented x3, CN's II-XII intact bilaterally, moves all extremities and no focal motor deficits, patient has a resting tremor at time Sensorium / Orientation: awake, alert, oriented to person and oriented to place Speech: speech normal Psych affect normal Patient appears in stable condition for transfer to an extended care facility for inpatient rehab services on 06/08/2023 Weight / BMI Weight Weight: 127.006 kg Body Mass Index (BMI) 40.1 ABG / Lab / Microbiology Data 06/06/23 07:10 06/06/23 07:10 Laboratory: Laboratory Results - last 24 hr 06/07/23 16:32: POC Glucose 64 L 06/07/23 22:12: POC Glucose 89 06/08/23 08:03: POC Glucose 119 H 06/08/23 11:32: POC Glucose 145 H Meaningful Use Info Meaningful Use Diagnoses (Choose all that apply): None applicable Discharge Plan Admission Admit Date/Time: 06/05/23 13:46 Primary Reason for Your Visit: Debility Attending Provider: Rubio Miller Primary Care Provider: Doretha Brown Consulting Providers: Jason Hess Discharge Orders/Prescriptions Prescriptions: New insulin glargine-yfgn 100 unit/mL (3 mL) Insulin Pen 25 unit subcut QHS Qty: 0 0RF insulin lispro [Humalog KwikPen Insulin] 100 unit/mL Insulin Pen 14 unit subcut TIDAC Qty: 0 0RF menthol-zinc oxide [Calmoseptine] 0.44-20.6 % Ointment 1 applic topical BID Qty: 0 0RF Protocol: *Topical Application Instructions APPLICATION INSTRUCTIONS: buttock Continued aspirin [Adult Aspirin Regimen] 81 mg tablet,delayed release (DR/EC) 81 mg PO DAILY melatonin 3 mg tablet 3 mg PO QHS fluoxetine 20 mg capsule 20 mg PO DAILY acetaminophen 500 MG tablet 1,000 mg PO QHS PRN (Reason: PAIN ) Artificial Tears(ra-jqip-aouw) 1-0.2-0.2 % Drops 2 drp EACH EYE Q1H PRN (Reason: DRY EYES) Qty: 0 0RF losartan 50 mg tablet 50 mg PO DAILY fluoxetine 40 mg capsule 40 mg PO DAILY trazodone 150 mg tablet 150 mg PO QHS carvedilol 12.5 mg tablet 25 mg PO BID amlodipine 2.5 mg tablet 2.5 mg PO DAILY pantoprazole 40 mg tablet,delayed release (DR/EC) 40 mg PO DAILY buspirone 7.5 mg tablet 7.5 mg PO TID hydroxyzine HCl 25 mg tablet 25 mg PO QHS PRN (Reason: ANXIETY ) furosemide 40 mg tablet 40 mg PO DAILY atorvastatin 80 mg tablet 80 mg PO QHS nystatin [Nyamyc] 100,000 unit/gram powder 1 applic topical BID Protocol: *Topical Application Instructions APPLICATION INSTRUCTIONS: to groin finasteride 5 mg tablet 5 mg PO DAILY clopidogrel 75 mg tablet 75 mg PO DAILY Qty: 30 1RF isosorbide mononitrate 30 mg tablet extended release 24 hr 30 mg PO DAILY Qty: 30 1RF pregabalin [Lyrica] 75 mg capsule 75 mg PO BID Qty: 60 0RF Discontinued loratadine [Allergy Relief (loratadine)] 10 mg tablet 10 mg PO DAILY insulin lispro [Humalog KwikPen Insulin] 100 unit/mL insulin pen 14 unit subcut TIDAC 90 Days Qty: 37.8 2RF insulin lispro 100 unit/mL insulin pen subcut ACHS Patient Comments: INJECT subcuaneously 8-16 units 5 (FIVE) times daily per sliding scale.] nitroglycerin 0.4 mg tablet, sublingual 0.4 mg SL Q5M PRN (Reason: CHEST PAIN ) albuterol sulfate 90 mcg/actuation HFA aerosol inhaler 2 puff inhalation Q4H PRN (Reason: SHORTNESS OF BREATH/WHEEZING ) Rx Instructions: administer with spacer sulfamethoxazole-trimethoprim [Bactrim DS] 800-160 mg tablet 1 tab PO BID 7 Days Qty: 14 0RF No Action (DME) Ultra-Light Rollator Misc See Rx Instructions .Route Qty: 1 2RF Rx Instructions: As directed (DME) pen needle, diabetic 33 gauge x 5/16 needle See Rx Instructions .Route Qty: 200 3RF Rx Instructions: As directed (DME) gauze bandage [Bordered Gauze] 4 X 4 bandage See Rx Instructions .ROUTE .MEDSUPPLY Qty: 14 2RF Rx Instructions: Daily cleanse left foot wound with soap and water, dry and apply Betadine solution and apply clean dressing Levemir FlexPen 100 unit/mL (3 mL) insulin pen 40 unit SUBCUT QHS Referrals / Follow Up: Jason Hess DPM [Med Staff - Active Staff] - See Referral Note (Call office to arrange follow-up appointment) Doretha Brown MD [Primary Care Provider] - Disposition Disposition (needs filled in before D/C Order can be placed): Shelter Facility Charges/Coding Visit Charges Inpatient E&M: 50369 Disch Hosp >30min
--- NOTE | 2023-06-08 15:43 | CASEMGMT ---
Discharge Planning Discharge orders, signed med list, and pickup time sent to [facility] via [facility]. Physicians will tranport by cot at 5p. Nursing and SW notified. Nuria Singh, Discharge Planning Asst.
--- NOTE | 2023-06-08 15:57 | CASEMGMT ---
Social Work Precert has been obtained. Physician notified and pt can be discharged today. SW met with pt and notified of discharge and that milk pickup driver time is 5pm. Pt is agreeable and states he will notify signifiant other. Disposition: [facility], skilled level of care MINISTERIO Gallagher
[2023-06-08 16:35] VITALS: BP 158/95; PULSE 58; RESP 18; TEMP 36.6; O2SAT 100
[2023-06-08 16:55] LABS: Bedside Glucose 96 mg/dL (74-106)
== END 2023-06-08 18:35 | disposition skilled nursing facility (03) ==
LOC: ED 13:29 → MS3 15:16
PROVIDERS: Admitting Provider Internal Medicine; Emergency Provider Emergency Medicine; PCP Internal Medicine; Visit Provider Internal Medicine
DX: E11.621 Type 2 diabetes mellitus with foot ulcer (principal); L89.312 Pressure ulcer of right buttock, stage 2; E11.51 Type 2 diabetes mellitus with diabetic peripheral angiopathy without gangrene; Z89.431 Acquired absence of right foot; L97.522 Non-pressure chronic ulcer of other part of left foot with fat layer exposed; J44.9 Chronic obstructive pulmonary disease, unspecified; E11.22 Type 2 diabetes mellitus with diabetic chronic kidney disease; E11.42 Type 2 diabetes mellitus with diabetic polyneuropathy; J96.11 Chronic respiratory failure with hypoxia; E66.01 Morbid (severe) obesity due to excess calories; Z68.41 Body mass index [BMI] 40.0-44.9, adult; Z79.4 Long term (current) use of insulin; N18.31 Chronic kidney disease, stage 3a; I12.9 Hypertensive chronic kidney disease with stage 1 through stage 4 chronic kidney disease, or unspecified chronic kidney disease; R53.81 Other malaise; Z79.02 Long term (current) use of antithrombotics/antiplatelets; I25.10 Atherosclerotic heart disease of native coronary artery without angina pectoris; M51.36 Other intervertebral disc degeneration, lumbar region; E78.00 Pure hypercholesterolemia, unspecified; Z79.82 Long term (current) use of aspirin; Z99.81 Dependence on supplemental oxygen; F32.A Depression, unspecified; F41.9 Anxiety disorder, unspecified; Z79.899 Other long term (current) drug therapy; K21.9 Gastro-esophageal reflux disease without esophagitis; I25.2 Old myocardial infarction
CPT/HCPCS: 36415; 71045; 80048; 81001; 82962; 83605; 84443; 84484; 85025; 87811; 93005; 96360; 96361; 96372; 97110; 97162; 97166; 97530; 97535; 99221; 99285; J7030; G0378

== ENCOUNTER 2023-07-13 07:24 | Inpatient (IN) | payer MEDICARE, MEDICAID, SELFPAY ==
[2023-07-13] VITALS (38 sets, daily range): BP systolic 113–162; BP diastolic 61–91; PULSE 57–105; RESP 14–32; TEMP 36.6–38.6; O2SAT 88–100; BMI 41.5; BMI 40.4
--- NOTE | 2023-07-13 07:31 | EDS_ITS ---
HPI History of Present Illness Chief Complaint: Shortness of Breath [facility] Medical History Ambulates with cane Amputation of one or more toes Anxiety Anxiety and depression Arrhythmia Arthritis Aspiration into airway Aspiration pneumonia Atherosclerotic heart disease of [place] coronary artery without angina pectoris Back pain Back spasm Bilateral leg weakness Blind left eye Blister (nonthermal), left foot, initial encounter Bronchiectasis with (acute) exacerbation Cardiology follow-up encounter Chronic cough Chronic respiratory failure with hypoxia CKD (chronic kidney disease) COPD (chronic obstructive pulmonary disease) CPAP (continuous positive airway pressure) dependence Debility, unspecified Depression Diabetes Essential hypertension Gastric reflux GERD (gastroesophageal reflux disease) High cholesterol History of aspiration pneumonia History of diabetes mellitus History of echocardiogram History of edema History of gout History of heart attack History of non-ST elevation myocardial infarction (NSTEMI) (08/2016) History of pain when walking History of steroid therapy History of stress test Hyperglycemia due to type 2 diabetes mellitus Hypertension Insulin dependent diabetes mellitus Kidney disease Kidney stones Kidney stones Leg pain, right Leukocytosis Low back pain Memory impairment Migraines Mood disorder Myocardial infarct Non-smoker Noncompliance by declining intervention or support On home oxygen therapy Peripheral vascular occlusive disease Pneumonia Prostate disease Pulmonary nodule, left Recurrent falls Right ankle pain Right foot pain Shortness of breath on exertion Silent aspiration Sleep apnea Tremor Type 2 diabetes mellitus Type 2 diabetes mellitus with diabetic polyneuropathy Ulcer of left foot, limited to breakdown of skin 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 Wears glasses Wound of left lower extremity Home Medications acetaminophen 500 mg tablet 1,000 mg PO QHS PRN PAIN 02/11/21 [History Last Taken 05/24/23] aspirin 81 mg tablet,delayed release (Adult Aspirin Regimen) 81 mg PO DAILY HEART HEALTH 11/05/21 [History Last Taken 06/04/23] peg [id number] 1 %-0.2 %-0.2 % eye drops (Artificial Tears ([id number])) 2 drp EACH EYE Q1H PRN DRY EYES #0 mL 11/14/21 [Rx Last Taken 06/04/23] gauze bandage 4 X 4 (Bordered Gauze) #14 ea 07/03/22 [Rx Last Taken Unknown] walker (Ultra-Light Rollator misc) #1 ea 07/21/22 [Rx Last Taken Unknown] pen needle, diabetic 33 gauge x 5/16 #200 ea 12/02/22 [Rx Last Taken Unknown] fluoxetine 20 mg capsule 20 mg PO DAILY ANXIETY 03/23/23 [History Last Taken 06/04/23] melatonin 3 mg tablet 3 mg PO QHS INSOMNIA 03/23/23 [History Last Taken 06/04/23] amlodipine 2.5 mg tablet 2.5 mg PO DAILY BLOOD PRESSURE 05/25/23 [History Last Taken 06/04/23] atorvastatin 80 mg tablet 80 mg PO QHS CHOLESTEROL 05/25/23 [History Last Taken 06/04/23] buspirone 7.5 mg tablet 7.5 mg PO TID ANXIETY 05/25/23 [History Last Taken 06/04/23] carvedilol 12.5 mg tablet 25 mg PO BID HEART 05/25/23 [History Last Taken 06/04/23] finasteride 5 mg tablet 5 mg PO DAILY PROSTATE 05/25/23 [History Last Taken 06/04/23] fluoxetine 40 mg capsule 40 mg PO DAILY ANXIETY 05/25/23 [History Last Taken 06/04/23] furosemide 40 mg tablet 40 mg PO DAILY FLUID 05/25/23 [History Last Taken 06/04/23] hydroxyzine HCl 25 mg tablet 25 mg PO QHS PRN ANXIETY 05/25/23 [History Last Taken 06/04/23] insulin detemir U-100 100 unit/mL (3 mL) subcutaneous pen (Levemir FlexPen) 40 unit subcut QHS DIABETES 05/25/23 [History Last Taken 06/04/23] losartan 50 mg tablet 50 mg PO DAILY BLOOD PRESSURE 05/25/23 [History Last Taken 06/04/23] pantoprazole 40 mg tablet,delayed release 40 mg PO DAILY ACID REFLUX 05/25/23 [History Last Taken 06/04/23] trazodone 150 mg tablet 150 mg PO QHS INSOMNIA 05/25/23 [History Last Taken 06/04/23] clopidogrel 75 mg tablet 75 mg PO DAILY BLOOD THINNER #30 tabs 05/28/23 [Rx Last Taken 06/04/23] isosorbide mononitrate 30 mg tablet,extended release 24 hr 30 mg PO DAILY HEART #30 tabs 05/28/23 [Rx Last Taken 06/04/23] pregabalin 75 mg capsule (Lyrica) 75 mg PO BID PAIN #60 caps 05/28/23 [Rx Last Taken 06/04/23] insulin glargine-yfgn 100 unit/mL (3 mL) subcutaneous pen 25 unit (0.25 mL) subcut QHS #0 mL 06/08/23 [Rx Last Taken Unknown] insulin lispro 100 unit/mL subcutaneous pen (Humalog KwikPen (U-100) Insulin) 14 unit (0.14 mL) subcut TIDAC #0 mL 06/08/23 [Rx Last Taken Unknown] menthol 0.44 %-zinc oxide 20.6 % topical ointment (Calmoseptine) 1 applic topical BID #0 grams 06/08/23 [Rx Last Taken Unknown] pregabalin 75 mg capsule 75 mg PO BID #10 caps 06/08/23 [Rx Last Taken Unknown] Allergy/AdvReac Type Severity Reaction Status Date / Time allopurinol AdvReac Vomiting Verified 07/13/23 07:38 Influenza Virus Vaccines AdvReac Vomiting Verified 07/13/23 07:38 pneumococcal vaccine AdvReac Vomiting Verified 07/13/23 07:38 Family History Mother Diabetes Heart disease CHF Father Heart disease ME/CAD Myocardial infarction Surgical History H/O lithotripsy History of angioplasty of peripheral vessel (2016) History of angioplasty of peripheral vessel History of ankle surgery History of cardiac catheterization History of coronary artery stent placement (08/2016) History of coronary artery stent placement History of esophagogastroduodenoscopy (EGD) History of left heart catheterization (11/15/17) History of thyroid surgery Hx of lithotripsy Hx of surgery to heart and great vessels, presenting hazards to health Hx of surgical procedure Hx of thyroidectomy Hx of toe surgery Hx of toe surgery PEG (percutaneous endoscopic gastrostomy) status Social History household members: spouse housing: apartment Smoking Status: Never smoker alcohol intake: never substance use type: does not use EXAM Physical Exam Const Vital Signs: 07/13/23 07:24 07/13/23 07:31 07/13/23 07:31 Temperature 101.5 F H 101 F H Temperature Source Temporal Temporal Pulse Rate 105 H 105 H Respiratory Rate 22 H 24 H Respiratory Effort Respiratory Depth Respiratory Pattern Blood Pressure 162/78 H 162/78 H Blood Pressure Mean 106 106 Pulse Ox 98 95 Oxygen Delivery Method Non-Rebreather Nasal Cannula Nasal Cannula Oxygen Flow Rate (L/min) 5 5 07/13/23 07:35 07/13/23 09:16 07/13/23 09:16 Temperature 100.4 F H Temperature Source Oral Pulse Rate 88 88 Respiratory Rate 22 H 22 H Respiratory Effort Normal Respiratory Depth Normal Respiratory Pattern Normal Blood Pressure 145/78 H 145/78 H Blood Pressure Mean 100 100 Pulse Ox 93 93 Oxygen Delivery Method Nasal Cannula Nasal Cannula Nasal Cannula Oxygen Flow Rate (L/min) 5 4 4 07/13/23 10:09 07/13/23 12:03 07/13/23 12:03 Temperature 99.1 F 98.9 F Temperature Source Oral Oral Pulse Rate 80 67 67 Respiratory Rate 15 18 18 Respiratory Effort Respiratory Depth Respiratory Pattern Blood Pressure 153/71 H 128/78 H 128/78 H Blood Pressure Mean 98 94 94 Pulse Ox 98 99 99 Oxygen Delivery Method Nasal Cannula Nasal Cannula Nasal Cannula Oxygen Flow Rate (L/min) 4 4 3 07/13/23 10:17 07/13/23 10:20 07/13/23 10:30 Temperature Temperature Source Pulse Rate 80 77 81 Respiratory Rate 20 H 16 18 Respiratory Effort Respiratory Depth Respiratory Pattern Blood Pressure 113/64 Blood Pressure Mean 80 Pulse Ox 99 99 98 Oxygen Delivery Method Oxygen Flow Rate (L/min) 07/13/23 10:40 07/13/23 10:45 07/13/23 10:50 Temperature Temperature Source Pulse Rate 85 71 Respiratory Rate 15 Respiratory Effort Respiratory Depth Respiratory Pattern Blood Pressure 119/61 Blood Pressure Mean 79 Pulse Ox 98 97 Oxygen Delivery Method Oxygen Flow Rate (L/min) 07/13/23 11:06 07/13/23 11:10 07/13/23 11:20 Temperature Temperature Source Pulse Rate 70 73 73 Respiratory Rate 14 14 Respiratory Effort Respiratory Depth Respiratory Pattern Blood Pressure Blood Pressure Mean Pulse Ox 97 98 Oxygen Delivery Method Oxygen Flow Rate (L/min) 07/13/23 11:30 07/13/23 11:40 07/13/23 11:50 Temperature Temperature Source Pulse Rate 71 65 75 Respiratory Rate 19 H 15 15 Respiratory Effort Respiratory Depth Respiratory Pattern Blood Pressure Blood Pressure Mean Pulse Ox 98 98 98 Oxygen Delivery Method Oxygen Flow Rate (L/min) 07/13/23 12:00 07/13/23 12:10 07/13/23 12:20 Temperature Temperature Source Pulse Rate 71 65 65 Respiratory Rate 19 H 27 H 15 Respiratory Effort Respiratory Depth Respiratory Pattern Blood Pressure Blood Pressure Mean Pulse Ox 88 98 96 Oxygen Delivery Method Oxygen Flow Rate (L/min) 07/13/23 12:30 07/13/23 12:40 07/13/23 12:50 Temperature Temperature Source Pulse Rate 67 63 Respiratory Rate 16 14 Respiratory Effort Respiratory Depth Respiratory Pattern Blood Pressure Blood Pressure Mean Pulse Ox 93 96 97 Oxygen Delivery Method Oxygen Flow Rate (L/min) 07/13/23 13:00 07/13/23 13:10 07/13/23 13:20 Temperature Temperature Source Pulse Rate 60 60 66 Respiratory Rate 14 14 14 Respiratory Effort Respiratory Depth Respiratory Pattern Blood Pressure Blood Pressure Mean Pulse Ox 97 97 96 Oxygen Delivery Method Oxygen Flow Rate (L/min) 07/13/23 13:30 07/13/23 13:40 07/13/23 13:50 Temperature Temperature Source Pulse Rate 65 60 62 Respiratory Rate 17 31 H 18 Respiratory Effort Respiratory Depth Respiratory Pattern Blood Pressure Blood Pressure Mean Pulse Ox 98 98 98 Oxygen Delivery Method Oxygen Flow Rate (L/min) 07/13/23 14:00 07/13/23 14:10 07/13/23 14:20 Temperature Temperature Source Pulse Rate 69 Respiratory Rate 32 H 19 H 17 Respiratory Effort Respiratory Depth Respiratory Pattern Blood Pressure Blood Pressure Mean Pulse Ox 97 98 98 Oxygen Delivery Method Oxygen Flow Rate (L/min) 07/13/23 14:30 Temperature Temperature Source Pulse Rate 63 Respiratory Rate 15 Respiratory Effort Respiratory Depth Respiratory Pattern Blood Pressure Blood Pressure Mean Pulse Ox 98 Oxygen Delivery Method Oxygen Flow Rate (L/min) MDM MDM MDM Narrative Medical decision making narrative: HISTORY OF PRESENT ILLNESS: 33-year-old male here with concern for shortness of breath started just prior to arrival. States he is typically on 4 L by nasal cannula. Notes he has not been feeling well. He denies any chest pain. Notes a mild cough. Denies any syncope. Denies any focal weakness. States he has a skin tear to his left hand. The patient denies recent surgery in the last 4 weeks or immobilization in the last 3 days, denies previous diagnosis of DVT or PE, hemoptysis, unilateral leg swelling or malignancy with treatment the last 6 months. No estrogen use noted. REVIEW OF SYSTEMS: Pertinent positives: Shortness of breath, fever Pertinent negatives: Chest pain PHYSICAL EXAM: Nursing triage notes reviewed, Vital signs reviewed Constitutional: please see mdm HENT: MMM, nasal cannula in place Eyes: Pupils equal round and reactive to light, Extraocular muscles intact Neck: No stridor, no JVD, full neck ROM Lungs: Diminished breath sounds bilaterally, no obvious auscultated consolidation Heart: Regular rate and rhythm, No murmurs, No rubs and No gallops, 2+ distal pulses (radial, femoral, posterior tibial) in all extremities Abdomen: Soft, there is no tenderness, no obvious peritoneal signs : No CVAT Extremities: No edema Neuro: No focal neurological deficits Skin: Skin tear noted to left thenar eminence without fluctuance redness or drainage. Redness noted to the left lateral calf without fluctuance bullae induration drainage there is some mild erythema noted. MEDICAL DECISION MAKING: Chief Complaint: Shortness of breath External records reviewed: Frequent ED utilizer. Admitted last month for CELESTE and dehydration Factors affecting care: COPD on 4 L baseline, chronic respiratory failure, history of aspiration pneumonia, history of type 2 diabetes, Social determinants of health: Elderly History obtained from others: EMS Consults: Internal medicine ALL IMAGES (IF OBTAINED) HAVE BEEN PERSONALLY REVIEWED AND INTERPRETED BY MYSELF. VBG without evidence of rest or acidosis, no obvious CO2 retention EKG with sinus tachycardia, left axis deviation, prolonged CA interval, no [facility] Narrative: Patient initially febrile, tachycardic, tachypneic. I considered the following differential diagnosis: Pneumonia, COVID, COPD exacerbation, arrhythmia, ACS, PE I obtained a broad lab and imaging work-up to further elucidate etiology patient complaints. Given tachypnea, tachycardia and fever did obtain a lactate and blood cultures. I obtained a chest x-ray to rule out evidence of pneumonia, COVID and flu swab to rule out viral illness, labs to rule out signs of CO2 retention, myocardial ischemia. Obtain EKG rule out arrhythmia and evidence of myocardial ischemia. EKG, troponin were negative for evidence of myocardial ischemia. VBG was negative for evidence of CO2 retention. COVID and flu swabs were negative. Chest x-ray did not show signs of pneumonia. Despite no obvious source of infection on skin exam or labs patient did have a leukocytosis, his initial vital signs were also concerning given fever tachycardia tachypnea. Concern for sepsis. Lactate was negative making septic shock unlikely. Gave broad-spectrum antibiotics given his history of immunocompromising states including type 2 diabetes. We will admit the patient to await blood cultures. Will discuss with the hospitalist. The patient and/or family, caregivers express understanding. The patient and/or family, caregivers agrees with the plan. Shared decision making: I will have a discussion with the patient and or visitors regarding risk/be nefits of further testing or admission. They will be made aware of of the risk/benefits inherent in this decision they will be given the opportunity to voice understanding. Total critical care time today provided was at least 0 minutes. This excludes separately billable procedures. Critical care time (if documented) is secondary to the patient having high probability of clinically significant/life threatening deterioration in the patient's condition which required my urgent intervention. Lab Data Attestation: I reviewed the patient's lab results. Lab results narrative: CBC with leukocytosis suggestive of systemic inflammation, mild anemia, no thrombocytopenia BMP without significant [place] normalities, no anion gap or acute kidney injury noted Lactate is wnl indicating no end-organ hypoperfusion and/or hypoxia. Troponin is negative, no evidence of myocardial ischemia BNP within normal limit suggestive of no evidence of increased myocardial stretch, lower suspicion for heart failure Labs: Laboratory Results - last 24 hr 07/13/23 07/13/23 07:45 13:48 WBC 18.1 H RBC 4.55 L Hgb 12.5 L Hct 41.6 MCV 91.4 MCH 27.5 MCHC 30.0 L RDW Std Deviation 47.7 H RDW Coeff of James 14.1 Plt Count TNP MPV 11.0 Immature Gran % (Auto) 0.600 Neut % (Auto) 88.2 H Lymph % (Auto) 6.0 L [place] % (Auto) 4.2 Eos % (Auto) 0.7 Baso % (Auto) 0.3 Absolute Neuts (auto) 16.0 H Absolute Lymphs (auto) 1.08 Nucleated RBC % 0 Platelet Estimate ADEQUATE Sodium 141 Potassium 4.1 Chloride 104 Carbon Dioxide 31.0 Anion Gap 6 BUN 18 Creatinine 1.25 Estim Creat Clear Calc 61.64 Est GFR (MDRD) Af Amer 75 Est GFR (MDRD) Non-Af 62 BUN/Creatinine Ratio 14.4 Glucose 203 H Lactic Acid 1.4 Calcium 9.3 Troponin I High Sens 31 B-Natriuretic Peptide 98.7 ABG Data ABG results: ABG 07/13/23 08:27 Specimen Type YA VBG pH 7.44 H VBG pO2 62 H VBG HCO3 31 H VBG Total CO2 33 VBG O2 Sat (Calc) 92 H VBG Base Excess 7 H POC Mix VBG pCO2 Pt Tmp 46.1 O2 Delivery Device Cannula Liter Flow 4.0 Radiography Chest X-Ray - ED: Read by ED Physician Diagnostic Testing: Clinical Impression(s) from Imaging Studies Chest X-Ray 07/13/23 10:58 IMPRESSION: Elevation of the right hemidiaphragm with mild right basilar atelectasis. Electronically Signed: Den Carver MD at 11:14 EDT , I have personally reviewed the patient's chest x-ray. Chest x-ray is unremarkable for pulmonary edema, pneumothorax, pneumonia or focal cardiopulmonary abnormality. Discharge Plan Triage Chief Complaint: Shortness of Breath ED Provider: Reno Clark Dx/Rx/DC Orders Clinical Impression: History of diabetes mellitus, type II, Leukocytosis, Tachycardia, Acute febrile illness Prescriptions: No Action aspirin [Adult Aspirin Regimen] 81 mg tablet,delayed release (DR/EC) 81 mg PO DAILY (DME) Ultra-Light Rollator Misc See Rx Instructions .Route Qty: 1 2RF Rx Instructions: As directed (DME) pen needle, diabetic 33 gauge x 5/16 needle See Rx Instructions .Route Qty: 200 3RF Rx Instructions: As directed melatonin 3 mg tablet 3 mg PO QHS fluoxetine 20 mg capsule 20 mg PO DAILY acetaminophen 500 MG tablet 1,000 mg PO QHS PRN (Reason: PAIN ) Artificial Tears([id number]) 1-0.2-0.2 % Drops 2 drp EACH EYE Q1H PRN (Reason: DRY EYES) Qty: 0 0RF (DME) gauze bandage [Bordered Gauze] 4 X 4 bandage See Rx Instructions .ROUTE .MEDSUPPLY Qty: 14 2RF Rx Instructions: Daily cleanse left foot wound with soap and water, dry and apply Betadine solution and apply clean dressing losartan 50 mg tablet 50 mg PO DAILY fluoxetine 40 mg capsule 40 mg PO DAILY trazodone 150 mg tablet 150 mg PO QHS Levemir FlexPen 100 unit/mL (3 mL) insulin pen 40 unit SUBCUT QHS carvedilol 12.5 mg tablet 25 mg PO BID amlodipine 2.5 mg tablet 2.5 mg PO DAILY pantoprazole 40 mg tablet,delayed release (DR/EC) 40 mg PO DAILY buspirone 7.5 mg tablet 7.5 mg PO TID hydroxyzine HCl 25 mg tablet 25 mg PO QHS PRN (Reason: ANXIETY ) furosemide 40 mg tablet 40 mg PO DAILY atorvastatin 80 mg tablet 80 mg PO QHS finasteride 5 mg tablet 5 mg PO DAILY insulin glargine-yfgn 100 unit/mL (3 mL) Insulin Pen 25 unit subcut QHS Qty: 0 0RF insulin lispro [Humalog KwikPen Insulin] 100 unit/mL Insulin Pen 14 unit subcut TIDAC Qty: 0 0RF menthol-zinc oxide [Calmoseptine] 0.44-20.6 % Ointment 1 applic topical BID Qty: 0 0RF Protocol: *Topical Application Instructions APPLICATION INSTRUCTIONS: buttock pregabalin 75 mg Capsule 75 mg PO BID Qty: 10 0RF clopidogrel 75 mg tablet 75 mg PO DAILY Qty: 30 1RF isosorbide mononitrate 30 mg tablet extended release 24 hr 30 mg PO DAILY Qty: 30 1RF pregabalin [Lyrica] 75 mg capsule 75 mg PO BID Qty: 60 0RF Primary Care Provider: Doretha Brown Referrals: Doretha Brown MD [Primary Care Provider] - Disposition Disposition: Acute Care Hospital [facility]
--- NOTE | 2023-07-13 07:35 | EKG12_ITS ---
Test Reason : SOB Blood Pressure : / mmHG Vent. Rate : 102 BPM Atrial Rate : 102 BPM P-R Int : 208 ms QRS Dur : 082 ms QT Int : 364 ms P-R-T Axes : 082 005 056 degrees QTc Int : 474 ms Sinus tachycardia Otherwise normal ECG Confirmed by MARÍA GIL ([id number]), videotape editor MAYDA ORTEGA ([id number]) on 07/17/2023 9:26:51 AM Referred By: PAULA Confirmed By:MARÍA GIL
[2023-07-13 07:59] LABS: Absolute Lymphocyte Count 1.08 X10^3/uL (0.83-4.51); Basophil# 0.05 X10^3/uL; Basophil% 0.3 % (0-1); Eosinophil# 0.12 X10^3/uL; Eosinophils% 0.7 % (0-5); Hematocrit 41.6 % (40-54); Hemoglobin 12.5 g/dL (13.0-16.5); Lymphocyte # 1.08 X10^3/ul (0.83-4.51); Mean Corpuscular Hgb 27.5 pg (27.0-32.0); Mean Corpuscular Volume 91.4 fL (80-94); Monocyte# 0.76 X10^3/uL; Monocyte% 4.2 % (0-10); NRBC Flagged by Analyzer 0 % (0-5); Neutrophil # 16.02 X10^3/uL (2.7-7.7); Neutrophil % 88.2 % (47-70); POSITIVE COUNT YES; RBC Distribution Width CV 14.1 % (11.6-14.6); RBC Distribution Width SD 47.7 fl (35.1-43.9); Red Blood Count 4.55 M/mm3 (4.6-6.2); White Blood Count 18.1 K/mm3 (4.4-11.0)
[2023-07-13 08:14] LABS: Anion Gap 6 (5-15); BUN 18 mg/dL (7-18); BUN/Creat Ratio 14.4 RATIO (10-20); Calcium,Total 9.3 mg/dL (8.5-10.1); Chloride 104 mmol/L (98-107); Creatinine, Serum 1.25 mg/dL (0.70-1.30); EST Glomerular Filtration Rate 62 mL/min (>60); Est Glom Filt Rate - Afr Amer 75 mL/min (>60); Estimated Creatinine Clearance 61.64 ml/min; Glucose 203 mg/dL (74-106); Potassium 4.1 mmol/L (3.5-5.1); Sodium Level 141 mmol/L (136-145); Troponin-I HS 31 pg/mL (3.0-78.0)
[2023-07-13 08:32] LABS: Blood Gas Specimen Type VEN; O2 Delivery Device Cannula; VBG BASE EXCESS 7 mmol/L (-1.0-3.5); VBG Bicarbonate 31 mmol/L (22-26); VBG PO2 62 mmHg (25-40); VBG SO2 92 % (50-70); VBG TCO2 33 mmol/L (23-33); VBG pCO2 46.1 mmHg (41-51); VBG pH 7.44 (7.32-7.42)
[2023-07-13] MEDS: Acetaminophen 325 MG Tablet 1000 MG PO (08:44)
[2023-07-13] MEDS: LORazepam 2 MG/ML Syringe 0.5 MG IV (08:44)
[2023-07-13 08:48] LABS: BNP,B-Type NATRIURETIC PEPTIDE 98.7 pg/mL (0-100)
[2023-07-13 08:51] LABS: Differential Indicated SCAN CRITERIA MET
[2023-07-13 08:52] LABS: Platelet Estimate ADEQUATE (ADEQ)
--- NOTE | 2023-07-13 10:12 | ED.RN ---
[facility] updated on patient treatment and admission. Patient given oral fluids. Fiance at bedside
--- NOTE | 2023-07-13 10:58 | RAD_ITS ---
STUDY: X-RAY CHEST REASON FOR EXAM: Male, 63 years old. SOB TECHNIQUE: AP and lateral views of the chest. COMPARISON: Comparison is made with prior study dated June 05, 2023. FINDINGS: There is elevation of the right hemidiaphragm. Mild linear atelectasis at the left lung base. There is no demonstrated pleural abnormality. Normal size heart. Normal mediastinum and pat. Normal visualized pulmonary arteries. There is atherosclerotic calcification of the aortic arch with tortuosity. There are diffuse degenerative changes of the visualized thoracic spine. Normal visualized ribs, clavicles, and shoulders. There is no demonstrated abnormality of the visualized soft tissue structures of the upper abdomen. RAD/Chest PA and Lateral IMPRESSION: Elevation of the right hemidiaphragm with mild right basilar atelectasis. Electronically Signed: Den Carver MD at 11:14 EDT ,
[2023-07-13 14:25] LABS: Lactic Acid 1.4 mmol/L (0.4-1.9)
[2023-07-13 15:13] LABS: Mucous, Urine 0 SEEN /hpf (<or=2+); Squamous Epithelial Cells - UA 0 SEEN /hpf (0-5)
[2023-07-13 15:23] LABS: Color, Urine Yellow (Yellow); Glucose, Dipstick Normal (Normal); Ketone-Dipstick Negative (Negative); Leukocyte Esterase-Dipstick 100 /ul (Negative); Nitrite-Dipstick Negative (Negative); Occult Blood-Urine 150 /ul (Negative); Protein-Dipstick 30 mg/dl (Negative); Urine Bilirubin Dipstick Negative (Negative); Urine Clarity Clear (Clear); Urine Urobilinogen 1 mg/dl (Normal)
--- NOTE | 2023-07-13 15:26 | ED.RN ---
Attempted to give report to Spencer alf, nurse unavailable
[2023-07-13 15:41] LABS: Red Blood Cells-Urine 0-5 SEEN /hpf (0-5); White Blood Cells 5-10 SEEN /hpf (0-5)
[2023-07-13 15:43] LABS: Bacteria RARE /hpf (None Seen)
--- NOTE | 2023-07-13 17:29 | PCM.HP.STD ---
HPI - General General Date of Admission: 07/13/23 Date of Service: 07/13/23 Chief Complaint: Shortness of breath, chills HPI Narrative REA HANNA, is a 63 M who presents to the emergency room at [facility] after being brought in by [place] from a local [facility] care facility at which she resides for inpatient rehab services. Patient had an episode of shortness of breath approximately 630 this morning, patient tells me that he had chills earlier this morning also. Zaydaad was called to bring the patient to the hospital at approximately 7:10 AM, squad documented that the patient required increased oxygen to maintain his pulse ox above 90%. Patient is on oxygen at 4 L via nasal cannula at all times at the alf. Evaluation in the emergency room included a chest x-ray which showed an elevated right hemidiaphragm which is chronic and evidence of what appeared to be mild atelectasis at the right lung base. Labs revealed an elevated white blood cell count at 18.1, hemoglobin was slightly low 12.5, patient's chemistry panel was unremarkable except for glucose of 203. Patient's oxygen requirement in the emergency room was noted to be 4 L. Patient's temperature in the emergency room was 101.5 on admission. Patient will be admitted to [place] [id number] for pneumonia-it is unknown whether this could be aspiration pneumonia-patient denies having any food intake when this episode happened earlier this morning, I will have speech therapy see the patient regarding possible swallowing difficulties. Patient will be treated with IV Zosyn and be given aerosol treatments, his present medications will be continued from the alf. Patient has an ulceration on the plantar surface of the left foot near its lateral aspect, this ulceration is a chronic ulceration and it does not not appear to be reddened and there is no evidence of any drainage. I will obtain a urinalysis on the patient, this was not performed in the emergency room. Patient's COVID and flu antigens were negative. [facility] Medical History Ambulates with cane Amputation of one or more toes Anxiety Anxiety and depression Arrhythmia Arthritis Aspiration into airway Aspiration pneumonia Atherosclerotic heart disease of [place] coronary artery without angina pectoris Back pain Back spasm Bilateral leg weakness Blind left eye Blister (nonthermal), left foot, initial encounter Bronchiectasis with (acute) exacerbation Cardiology follow-up encounter Chronic cough Chronic respiratory failure with hypoxia CKD (chronic kidney disease) COPD (chronic obstructive pulmonary disease) CPAP (continuous positive airway pressure) dependence Debility, unspecified Depression Diabetes Essential hypertension Gastric reflux GERD (gastroesophageal reflux disease) High cholesterol History of aspiration pneumonia History of diabetes mellitus History of echocardiogram History of edema History of gout History of heart attack History of non-ST elevation myocardial infarction (NSTEMI) (08/2016) History of pain when walking History of steroid therapy History of stress test Hyperglycemia due to type 2 diabetes mellitus Hypertension Insulin dependent diabetes mellitus Kidney disease Kidney stones Kidney stones Leg pain, right Leukocytosis Low back pain Memory impairment Migraines Mood disorder Myocardial infarct Non-smoker Noncompliance by declining intervention or support On home oxygen therapy Peripheral vascular occlusive disease Pneumonia Prostate disease Pulmonary nodule, left Recurrent falls Right ankle pain Right foot pain Shortness of breath on exertion Silent aspiration Sleep apnea Tremor Type 2 diabetes mellitus Type 2 diabetes mellitus with diabetic polyneuropathy Ulcer of left foot, limited to breakdown of skin 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 Wears glasses Wound of left lower extremity Home Medications acetaminophen 500 mg tablet 1,000 mg PO Q24H PRN PAIN 02/11/21 [History Last Taken 05/24/23] aspirin 81 mg tablet,delayed release (Adult Aspirin Regimen) 81 mg PO DAILY HEART HEALTH 11/05/21 [History Last Taken 07/12/23] peg [id number] 1 %-0.2 %-0.2 % eye drops (Artificial Tears ([id number])) 2 drp EACH EYE Q1H PRN DRY EYES #0 mL 11/14/21 [Rx Last Taken 06/04/23] gauze bandage 4 X 4 (Bordered Gauze) #14 ea 07/03/22 [Rx Last Taken Unknown] walker (Ultra-Light Rollator misc) #1 ea 07/21/22 [Rx Last Taken Unknown] pen needle, diabetic 33 gauge x /16 #200 ea 12/02/22 [Rx Last Taken Unknown] fluoxetine 20 mg capsule 20 mg PO DAILY ANXIETY 03/23/23 [History Last Taken 07/12/23] melatonin 3 mg tablet 3 mg PO QHS INSOMNIA 03/23/23 [History Last Taken 07/12/23] amlodipine 2.5 mg tablet 2.5 mg PO DAILY BLOOD PRESSURE 05/25/23 [History Last Taken 07/12/23] atorvastatin 80 mg tablet 80 mg PO QHS CHOLESTEROL 05/25/23 [History Last Taken 07/12/23] buspirone 7.5 mg tablet 7.5 mg PO TID ANXIETY 05/25/23 [History Last Taken 07/13/23] carvedilol 12.5 mg tablet 25 mg PO BID HEART 05/25/23 [History Last Taken 07/12/23] finasteride 5 mg tablet 5 mg PO DAILY PROSTATE 05/25/23 [History Last Taken 07/12/23] fluoxetine 40 mg capsule 40 mg PO DAILY ANXIETY 05/25/23 [History Last Taken 07/12/23] furosemide 40 mg tablet 40 mg PO DAILY FLUID 05/25/23 [History Last Taken 07/12/23] hydroxyzine HCl 25 mg tablet 25 mg PO QHS PRN ANXIETY 05/25/23 [History Last Taken 06/04/23] losartan 50 mg tablet 50 mg PO DAILY BLOOD PRESSURE 05/25/23 [History Last Taken 07/12/23] pantoprazole 40 mg tablet,delayed release 40 mg PO DAILY ACID REFLUX 05/25/23 [History Last Taken 07/13/23] trazodone 150 mg tablet 150 mg PO QHS INSOMNIA 05/25/23 [History Last Taken 07/12/23] clopidogrel 75 mg tablet 75 mg PO DAILY BLOOD THINNER #30 tabs 05/28/23 [Rx Last Taken 07/12/23] isosorbide mononitrate 30 mg tablet,extended release 24 hr 30 mg PO DAILY HEART #30 tabs 05/28/23 [Rx Last Taken 07/12/23] insulin glargine-yfgn 100 unit/mL (3 mL) subcutaneous pen 25 unit (0.25 mL) subcut QHS diabetes #0 mL 06/08/23 [Rx Last Taken 07/12/23] insulin lispro 100 unit/mL subcutaneous pen (Humalog KwikPen (U-100) Insulin) 14 unit (0.14 mL) subcut TIDAC diabetes #0 mL 06/08/23 [Rx Last Taken 07/12/23] menthol 0.44 %-zinc oxide 20.6 % topical ointment (Calmoseptine) 1 applic topical BID skin irritation #0 grams 06/08/23 [Rx Last Taken 07/12/23] pregabalin 75 mg capsule 75 mg PO BID pain #10 caps 06/08/23 [Rx Last Taken 07/12/23] multivitamin,cp-qywl-Yc-FA-min 1 tab PO DAILY health maintenance 07/13/23 [History Last Taken 07/12/23] Allergy/AdvReac Type Severity Reaction Status Date / Time allopurinol AdvReac Vomiting Verified 07/13/23 07:38 Influenza Virus Vaccines AdvReac Vomiting Verified 07/13/23 07:38 pneumococcal vaccine AdvReac Vomiting Verified 07/13/23 07:38 Family History Mother Diabetes Heart disease CHF Father Heart disease [place]/CAD Myocardial infarction Surgical History H/O lithotripsy History of angioplasty of peripheral vessel (2016) History of angioplasty of peripheral vessel History of ankle surgery History of cardiac catheterization History of coronary artery stent placement (08/2016) History of coronary artery stent placement History of esophagogastroduodenoscopy (EGD) History of left heart catheterization (11/15/17) History of thyroid surgery Hx of lithotripsy Hx of surgery to heart and great vessels, presenting hazards to health Hx of surgical procedure Hx of thyroidectomy Hx of toe surgery Hx of toe surgery PEG (percutaneous endoscopic gastrostomy) status Social History household members: spouse housing: apartment Smoking Status: Never smoker alcohol intake: never substance use type: does not use ROS Constitutional Constitutional: Reports chills and fever(s); Denies anorexia, change in weight, night sweats or weakness Eyes Eyes: Denies blurry vision, change in vision, discharge from eye(s) or eye pain Cardiovascular Cardiovascular: Denies chest pain, claudication, edema or palpitations Respiratory/Chest Respiratory/Chest: Reports dyspnea, shortness of breath at rest and shortness of breath with exertion; Denies cough or hemoptysis Gastrointestinal Gastrointestinal: Denies abdominal pain, constipation, diarrhea, hematemesis, hematochezia, melena, nausea or vomiting Genitourinary Genitourinary: Denies dysuria, hematuria, urinary frequency, urinary hesitancy, urinary incontinence or urinary urgency Musculoskeletal Musculoskeletal: Denies back pain, joint pain, joint stiffness, joint swelling, myalgias or neck pain Neurologic Neurologic: Denies abnormal gait, abnormal speech, confusion, dizziness, focal weakness, headache(s), loss of vision, numbness, other visual disturbances, paresthesias, syncope or tingling Psychiatric Psychiatric: Denies anxiety, cognitive impairment, depression, irritability, mood swings or suicidal ideation Endocrine Endocrinology: Denies change in body appearance, cold intolerance, excessive sweating, heat intolerance, polydipsia or polyuria Hematologic/Lymphatic Hematologic/Lymphatic: Denies none, anemia, easy bleeding, easy bruising or lymphadenopathy Allergic/Immunologic Allergic/Immunologic: Denies rhinitis, urticaria, eczemia or asthma Vital Signs Vital Signs Vital Signs: 07/13/23 07:24 07/13/23 07:31 07/13/23 07:31 Temperature 101.5 F H 101 F H Temperature Source Temporal Temporal Pulse Rate 105 H 105 H Respiratory Rate 22 H 24 H Respiratory Effort Respiratory Depth Respiratory Pattern Blood Pressure 162/78 H 162/78 H Blood Pressure Mean 106 106 Pulse Ox 98 95 Oxygen Delivery Method Non-Rebreather Nasal Cannula Nasal Cannula Oxygen Flow Rate (L/min) 5 5 07/13/23 07:35 07/13/23 09:16 07/13/23 09:16 Temperature 100.4 F H Temperature Source Oral Pulse Rate 88 88 Respiratory Rate 22 H 22 H Respiratory Effort Normal Respiratory Depth Normal Respiratory Pattern Normal Blood Pressure 145/78 H 145/78 H Blood Pressure Mean 100 100 Pulse Ox 93 93 Oxygen Delivery Method Nasal Cannula Nasal Cannula Nasal Cannula Oxygen Flow Rate (L/min) 5 4 4 07/13/23 10:09 07/13/23 12:03 07/13/23 12:03 Temperature 99.1 F 98.9 F Temperature Source Oral Oral Pulse Rate 80 67 67 Respiratory Rate 15 18 18 Respiratory Effort Respiratory Depth Respiratory Pattern Blood Pressure 153/71 H 128/78 H 128/78 H Blood Pressure Mean 98 94 94 Pulse Ox 98 99 99 Oxygen Delivery Method Nasal Cannula Nasal Cannula Nasal Cannula Oxygen Flow Rate (L/min) 4 4 3 07/13/23 13:00 07/13/23 14:00 07/13/23 14:53 Temperature 98.5 F 98.6 F 98.6 F Temperature Source Oral Oral Oral Pulse Rate 65 65 61 Respiratory Rate 14 14 14 Respiratory Effort Respiratory Depth Respiratory Pattern Blood Pressure 119/61 125/64 H 125/64 H Blood Pressure Mean 80 84 84 Pulse Ox 99 97 97 Oxygen Delivery Method Nasal Cannula Nasal Cannula Nasal Cannula Oxygen Flow Rate (L/min) 3 3 2 07/13/23 15:00 07/13/23 10:17 07/13/23 10:20 Temperature Temperature Source Pulse Rate 57 L 80 77 Respiratory Rate 15 20 H 16 Respiratory Effort Respiratory Depth Respiratory Pattern Blood Pressure 113/91 H Blood Pressure Mean 98 Pulse Ox 96 99 99 Oxygen Delivery Method Nasal Cannula Oxygen Flow Rate (L/min) 2 07/13/23 10:30 07/13/23 10:40 07/13/23 10:45 Temperature Temperature Source Pulse Rate 81 85 Respiratory Rate 18 Respiratory Effort Respiratory Depth Respiratory Pattern Blood Pressure 113/64 119/61 Blood Pressure Mean 80 79 Pulse Ox 98 98 Oxygen Delivery Method Oxygen Flow Rate (L/min) 07/13/23 10:50 07/13/23 11:06 07/13/23 11:10 Temperature Temperature Source Pulse Rate 71 70 73 Respiratory Rate 15 14 14 Respiratory Effort Respiratory Depth Respiratory Pattern Blood Pressure Blood Pressure Mean Pulse Ox 97 97 Oxygen Delivery Method Oxygen Flow Rate (L/min) 07/13/23 11:20 07/13/23 11:30 07/13/23 11:40 Temperature Temperature Source Pulse Rate 73 71 65 Respiratory Rate 19 H 15 Respiratory Effort Respiratory Depth Respiratory Pattern Blood Pressure Blood Pressure Mean Pulse Ox 98 98 98 Oxygen Delivery Method Oxygen Flow Rate (L/min) 07/13/23 11:50 07/13/23 12:00 07/13/23 12:10 Temperature Temperature Source Pulse Rate 75 71 65 Respiratory Rate 15 19 H 27 H Respiratory Effort Respiratory Depth Respiratory Pattern Blood Pressure Blood Pressure Mean Pulse Ox 98 88 98 Oxygen Delivery Method Oxygen Flow Rate (L/min) 07/13/23 12:20 07/13/23 12:30 07/13/23 12:40 Temperature Temperature Source Pulse Rate 65 67 Respiratory Rate 15 16 Respiratory Effort Respiratory Depth Respiratory Pattern Blood Pressure Blood Pressure Mean Pulse Ox 96 93 96 Oxygen Delivery Method Oxygen Flow Rate (L/min) 07/13/23 12:50 07/13/23 13:00 07/13/23 13:10 Temperature Temperature Source Pulse Rate 63 60 60 Respiratory Rate 14 14 14 Respiratory Effort Respiratory Depth Respiratory Pattern Blood Pressure Blood Pressure Mean Pulse Ox 97 97 97 Oxygen Delivery Method Oxygen Flow Rate (L/min) 07/13/23 13:20 07/13/23 13:30 07/13/23 13:40 Temperature Temperature Source Pulse Rate 66 65 60 Respiratory Rate 14 17 31 H Respiratory Effort Respiratory Depth Respiratory Pattern Blood Pressure Blood Pressure Mean Pulse Ox 96 98 98 Oxygen Delivery Method Oxygen Flow Rate (L/min) 07/13/23 13:50 07/13/23 14:00 07/13/23 14:10 Temperature Temperature Source Pulse Rate 62 69 Respiratory Rate 18 32 H 19 H Respiratory Effort Respiratory Depth Respiratory Pattern Blood Pressure Blood Pressure Mean Pulse Ox 98 97 98 Oxygen Delivery Method Oxygen Flow Rate (L/min) 07/13/23 14:20 07/13/23 14:30 Temperature Temperature Source Pulse Rate 63 Respiratory Rate 17 15 Respiratory Effort Respiratory Depth Respiratory Pattern Blood Pressure Blood Pressure Mean Pulse Ox 98 98 Oxygen Delivery Method Oxygen Flow Rate (L/min) Weight Weight: 131.2 kg Body Mass Index (BMI) 41.5 Physical Exam Const alert, oriented x3 and no apparent distress Constitutional Narrative: Patient appears older than his stated age General Appearance: cooperative, well kempt and well developed Orientation / Consciousness: awake, oriented to person, oriented to place and oriented to time HEENT normocephalic, head/scalp atraumatic, hearing grossly normal bilaterally and moist oral mucous membranes Eyes PERRL, EOMs intact bilaterally and conjunctivae normal Neck supple, no JVD, thyroid normal and no carotid bruits General: trachea midline Resp normal respiratory effort, no retractions and no use of accessory muscles Resp Narrative: Breath sounds are diminished bilaterally, no rales rhonchi or wheezes were noted Auscultation: Negative for rales, rhonchi or wheezes Cardio regular rate, regular rhythm, S1 normal heart sound, S2 normal heart sound, no murmurs, no rub and no gallops GI normal to inspection, nondistended, normoactive bowel sounds, soft to palpation, non-tender and non-distended Extremity Extremity Narrative: There is an ulceration noted on the plantar surface of the patient's left foot near its medial aspect near the calcaneus, this ulceration is approximately 2 to 3 cm in diameter, its margins are clean and there is no discharge noted from the area. There is no erythema noted over the area. Patient has evidence of a prior transmetatarsal amputation of the right foot noted Skin Skin Narrative: There is noted to be an ulceration on the plantar surface of the patient's left foot as described previously Neuro oriented x3, CN's II-XII intact bilaterally, moves all extremities, no focal motor deficits and no sensory deficits noted Sensorium / Orientation: awake and alert Speech: speech normal Psych affect normal Results Lab / Micro Data 07/13/23 07:45 07/13/23 07:45 Labs: Laboratory Results - last 24 hr 07/13/23 07:45: WBC 18.1 H, RBC 4.55 L, Hgb 12.5 L, Hct 41.6, MCV 91.4, MCH 27.5, MCHC 30.0 L, RDW Std Deviation 47.7 H, RDW Coeff of James 14.1, Plt Count TNP, MPV 11.0, Immature Gran % (Auto) 0.600, Neut % (Auto) 88.2 H, Lymph % (Auto) 6.0 L, [place] % (Auto) 4.2, Eos % (Auto) 0.7, Baso % (Auto) 0.3, Absolute Neuts (auto) 16.0 H, Absolute Lymphs (auto) 1.08, Nucleated RBC % 0, Platelet Estimate ADEQUATE, Sodium 141, Potassium 4.1, Chloride 104, Carbon Dioxide 31.0, Anion Gap 6, BUN 18, Creatinine 1.25, Estim Creat Clear Calc 61.64, Est GFR (MDRD) Af Amer 75, Est GFR (MDRD) Non-Af 62, BUN/Creatinine Ratio 14.4, Glucose 203 H, Calcium 9.3, Troponin I High Sens 31, B-Natriuretic Peptide 98.7 07/13/23 13:48: Lactic Acid 1.4 07/13/23 15:10: Urine Color Yellow, Urine Clarity Clear, Urine pH 5.0, Ur Specific [place] 1.020, Urine Protein 30 H, Urine Glucose (UA) Normal, Urine Ketones Negative, Urine Occult Blood 150 H, Urine Nitrite Negative, Urine Bilirubin Negative, Urine Urobilinogen 1 H, Ur Leukocyte Esterase 100 H, Urine RBC 0-5 SEEN, Urine WBC 5-10 SEEN, Ur Squamous Epith Cells 0 SEEN, Urine Bacteria RARE, Urine Mucus 0 SEEN 07/13/23 15:15: Urine Color Cancelled, Urine Clarity Cancelled, Urine pH Cancelled, Ur Specific [place] Cancelled, U Specif Grav (Refrac) Cancelled, Urine Protein Cancelled, Urine Glucose (UA) Cancelled, Urine Ketones Cancelled, Urine Occult Blood Cancelled, Urine Nitrite Cancelled, Urine Bilirubin Cancelled, Urine Urobilinogen Cancelled, Ur Leukocyte Esterase Cancelled, Urine RBC Cancelled, Urine WBC Cancelled, Ur Squamous Epith Cells Cancelled, Ur Transition Epith Cell Cancelled, Ur Renal Epithelial Cell Cancelled, Calcium Oxalate Crystal Cancelled, Uric Acid Crystals Cancelled, Triple Phos Crystals Cancelled, Other Crystals Cancelled, Amorphous Sediment Cancelled, Urine Bacteria Cancelled, Hyaline Casts Cancelled, Fine Granular Casts Cancelled, Coarse Granular Casts Cancelled, Waxy Casts Cancelled, RBC Casts Cancelled, WBC Casts Cancelled, Urine Mucus Cancelled, Urine Trichomonas Cancelled, Urine Yeast Cancelled Micro: Microbiology 07/13/23 15:15 Urine Catheter - Catheter Legionella Antigen - Final 07/13/23 15:15 Urine Catheter - Catheter Streptococcus pneumoniae Antigen (M - Final 07/13/23 07:45 Nasal Secretion SARS-CoV-2 & FLU Antigen (Rapid) - Final ABG Data ABG results: ABG 07/13/23 08:27 Specimen Type YA VBG pH 7.44 H VBG pO2 62 H VBG HCO3 31 H VBG Total CO2 33 VBG O2 Sat (Calc) 92 H VBG Base Excess 7 H POC Mix VBG pCO2 Pt Tmp 46.1 O2 Delivery Device Cannula Liter Flow 4.0 Radiology Impression Chest X-Ray 07/13/23 10:58 IMPRESSION: Elevation of the right hemidiaphragm with mild right basilar atelectasis. Electronically Signed: Den Carver MD at 11:14 EDT , Assessment & Plan Assessment/Plan (1) Hypoxia: PLAN: Plan 1. Acute hypoxia on a backdrop of chronic hypoxic respiratory failure-etiology unclear at this point, possibly secondary to pneumonia, another possibility is an acute mucous plug-patient will be admitted to [facility], he was placed on IV Zosyn, sputum culture will be obtained possible, urine antigens for Legionella and strep were also ordered. Blood cultures were drawn in the emergency room. Labs will be monitored, pulse ox will be monitored. Patient's oxygen requirement at the time of this dictation is 2 L. 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 #10 peripheral vascular disease-complicates care, medical course, recovery, and prognosis #11 chronic anxiety and depression-patient will remain on his current medications Total clinical time spent by myself addressing the patient's medical issues, reviewing all of his data, and collaborating with patient's care team: 75 minutes Charges/Coding Visit Charges Inpatient E&M: [id number] Init Hosp L3
[2023-07-13] MEDS: Insulin Lispro 100 UNIT/ML INSULN.PEN SC (18:11)
[2023-07-13] MEDS: Insulin Lispro 100 UNIT/ML INSULN.PEN 14 UNIT SC (18:11)
[2023-07-13] MEDS: Carvedilol 25 MG Tablet PO (18:12)
[2023-07-13 18:15] LABS: Bedside Glucose 295 mg/dL (74-106)
[2023-07-13] MEDS: Atorvastatin Calcium 80 MG Tablet PO (22:55)
[2023-07-13] MEDS: Menthol/Lanolin/Calamine/Znox 113 GM Tube 1 APPLIC TOPICAL (22:55)
[2023-07-13] MEDS: busPIRone 15 MG TABLET 7.5 MG PO (22:56)
[2023-07-13] MEDS: Heparin Injection (Vial) 5,000 UNIT/ML VIAL 5000 UNIT SC (22:56)
[2023-07-13] MEDS: traZODone 100 MG Tablet 150 MG PO (22:56)
[2023-07-13] MEDS: MELATONIN 3 MG TABLET PO (22:57)
[2023-07-13] MEDS: 0.9% Saline Lock 10 ML Syringe IV (22:58)
[2023-07-13] MEDS: Pregabalin 75 MG Capsule PO (23:25)
[2023-07-13 23:46] LABS: Bedside Glucose 122 mg/dL (74-106)
[2023-07-14] MEDS: busPIRone 15 MG TABLET 7.5 MG PO ×3 (05:11→19:59)
[2023-07-14 06:03] VITALS: BP 137/84; PULSE 54; RESP 16; TEMP 36.4; O2SAT 100
[2023-07-14 06:58] LABS: Absolute Lymphocyte Count 1.77 X10^3/uL (0.83-4.51); Absolute Neutrophil Count 10.8 X10^3/uL (2.0-7.7); Basophil# 0.07 X10^3/uL; Basophil% 0.5 % (0-1); Eosinophil# 0.12 X10^3/uL; Eosinophils% 0.9 % (0-5); Hematocrit 34.6 % (40-54); Hemoglobin 10.6 g/dL (13.0-16.5); Lymphocyte # 1.77 X10^3/ul (0.83-4.51); Lymphocyte % 12.8 % (19-41); Mean Corp Hgb Conc 30.6 g/dL (32-36); Mean Corpuscular Hgb 28.1 pg (27.0-32.0); Mean Corpuscular Volume 91.8 fL (80-94); Monocyte# 0.99 X10^3/uL; Monocyte% 7.2 % (0-10); NRBC Flagged by Analyzer 0 % (0-5); Neutrophil # 10.77 X10^3/uL (2.7-7.7); Neutrophil % 78.1 % (47-70); Platelet Count 192 K/mm3 (150-450); RBC Distribution Width CV 14.2 % (11.6-14.6); RBC Distribution Width SD 47.8 fl (35.1-43.9); Red Blood Count 3.77 M/mm3 (4.6-6.2); White Blood Count 13.8 K/mm3 (4.4-11.0)
[2023-07-14 07:09] VITALS: O2SAT 94
[2023-07-14 07:21] LABS: Anion Gap 3 (5-15); BUN 19 mg/dL (7-18); BUN/Creat Ratio 17.4 RATIO (10-20); Calcium,Total 8.6 mg/dL (8.5-10.1); Chloride 107 mmol/L (98-107); Creatinine, Serum 1.09 mg/dL (0.70-1.30); EST Glomerular Filtration Rate 72 mL/min (>60); Est Glom Filt Rate - Afr Amer 88 mL/min (>60); Estimated Creatinine Clearance 70.69 ml/min; Glucose 146 mg/dL (74-106); Potassium 4.1 mmol/L (3.5-5.1); Sodium Level 144 mmol/L (136-145)
[2023-07-14] MEDS: Aspirin E.C. 81 MG Tablet PO (08:14)
[2023-07-14] MEDS: Carvedilol 25 MG Tablet PO ×2 (08:14→17:08)
[2023-07-14] MEDS: Insulin Lispro 100 UNIT/ML INSULN.PEN 14 UNIT SC ×3 (08:14→17:07)
[2023-07-14] MEDS: Insulin Lispro 100 UNIT/ML INSULN.PEN SC ×3 (08:15→17:07)
[2023-07-14 08:40] LABS: Bedside Glucose 151 mg/dL (74-106)
--- NOTE | 2023-07-14 09:25 | WOUNDNOTE ---
wound photo: left plantar heel
--- NOTE | 2023-07-14 09:36 | CASEMGMT ---
Social Work SW met w/pt in room in regard to discharge plan. Pt states was at [facility], but is not going back and will go home from the hospital. As per pt, his significant other She can help pt at home and she is agreeable to have pt home. PCP: Dr. Brown Specialists: Dr. Hess for wound care Insurance: [facility] and [facility] Community Plan Pharmacy: [facility] in [place] Living arrangements/Prior level of function: Pt was at [facility] prior to this hospitalization, was at home w/significant other She and son who is 23 prior to this. As per pt he has been in a wheelchair for months. Pt states can stand and pivot. As per pt, significant other helps with ADLs, son can also help. Pt states there are no steps into the home or at home. She is willing to help him when he leaves the hospital, and is home w/him. SW reviewed therapy notes from April, at that time pt had said can walk short distances and uses a wheelchair and scooter. LW/POA: Pt states Gabriela is POA and thinks the documents are on the chart here. SW looked, the documents are not on the chart. SW let pt know. Pt still thinks the documents are on file here, states had brought them in twice. DME: Pt states has home O2, walker, rollator, shower chair, bedside commode. Pt states needs a wheelchair with sides. Pt's O2 is through [employer]. SNF: Pt was at [facility] but is stating will not go back and wants to go home. He states the plan was to leave [facility] . SW called [facility], spoke w/Anum. She states pt was planning to leave AMA tomorrow, so nothing was set up. She states doctor wanted him to stay one more week and pt wanted to go home, doctor did not agree so pt was going to leave AMA. SW spoke w/pt again, asked permission to call Gabriela. Pt states can call her right now, pt called Gabriela. Gabriela confirmed oxygen company, also confirmed that she can care for pt at home. Pt then asked SW multiple times if he will be able to return home. SW explained we will see how therapy goes, and then go from there. Pt agreeable to home health and he wants a wheelchair with sides. He has a wheelchair but does not know where he got it, states it has no hand rails. SW will continue to follow, will see how pt does with PT/OT, and if pt is able to go home, will refer to CM for home health and DME. MAURA Jackson
[2023-07-14] MEDS: Menthol/Lanolin/Calamine/Znox 113 GM Tube 1 APPLIC TOPICAL ×2 (10:02→20:00)
[2023-07-14] MEDS: Finasteride 5 MG Tablet PO (10:04)
[2023-07-14] MEDS: Heparin Injection (Vial) 5,000 UNIT/ML VIAL 5000 UNIT SC ×2 (10:04→20:01)
[2023-07-14] MEDS: Furosemide 40 MG Tablet PO (10:04)
[2023-07-14] MEDS: Pantoprazole Sodium 40 MG Tablet PO (10:05)
[2023-07-14] MEDS: Losartan Potassium 50 MG Tablet PO (10:05)
[2023-07-14] MEDS: Clopidogrel Bisulfate 75 MG Tablet PO (10:05)
[2023-07-14] MEDS: FLUoxetine 20 MG Capsule PO (10:05)
[2023-07-14] MEDS: Isosorbide Mononitrate 30 MG Tablet PO (10:05)
[2023-07-14] MEDS: Insulin Glargine-YFGN 100 UNIT/ML Pen 30 UNIT SC (10:06)
[2023-07-14] MEDS: Fluoxetine HCl 40 MG CAPSULE PO (10:06)
[2023-07-14] MEDS: amLODIPine 2.5 MG Tablet PO (10:06)
[2023-07-14] MEDS: 0.9% Saline Lock 10 ML Syringe IV (10:07)
[2023-07-14] MEDS: Nystatin Powder 15gm Bottle 1 APPLIC TOPICAL ×2 (10:33→20:00)
[2023-07-14] MEDS: Pregabalin 75 MG Capsule PO ×2 (10:33→20:12)
--- NOTE | 2023-07-14 10:53 | CASEMGMT ---
Discharge Plannig A list of home health providers including quality and resource use data and consistent with the patient?s preferred geographic region, medical needs, and insurance network was created in [employer]. This list was provided to the SW. Nuria Singh Discharge Planning Asst.
[2023-07-14 11:33] LABS: Bedside Glucose 163 mg/dL (74-106)
[2023-07-14 12:00] VITALS: BP 121/81; PULSE 65; RESP 18; TEMP 37.1; O2SAT 100
--- NOTE | 2023-07-14 14:29 | CASEMGMT ---
[facility] [place] Follow-up: This RN CM met with pt and pt's S.O. face to face. Pt's S.O. states she and pt's son can provide care for pt. Home healthcare list printed by [place] political science research assistant provided to pt and pt's S.O. First preference is for [facility]. Call placed to [facility] with referral request. Pt states he has needed DME except for a w/c. States he had [facility] services in the past but is unable to recall the name of his test case developer. Will contact [facility] to determine availability of services at discharge. Pt states he has his medications at home. Educated pt and spouse on need to check that any medications be double checked for changes upon discharge. Pt and spouse expressed understanding. Pt's goal: Home w/HH, accepting provider pending. Cole Boyle RN CM
--- NOTE | 2023-07-14 14:49 | RAD_ITS ---
STUDY: X-RAY CHEST REASON FOR EXAM: Male, 63 years old. Pneumonia TECHNIQUE: AP and lateral views of the chest. COMPARISON: Comparison is made with prior study dated July 13, 2023. FINDINGS: Elevation of the right hemidiaphragm. Minimal residual changes at the lung bases although there has been improvement. There is no demonstrated pleural abnormality. There is mild cardiac enlargement. Normal mediastinum and pat. Normal visualized pulmonary arteries. There is atherosclerotic calcification of the aortic arch with tortuosity. There are diffuse degenerative changes of the visualized thoracic spine. Normal visualized ribs, clavicles, and shoulders. There is no demonstrated abnormality of the visualized soft tissue structures of the upper abdomen. RAD/Chest PA and Lateral IMPRESSION: Minimal residual changes are seen at the lung bases. There has been improvement as compared to prior study. Electronically Signed: Den Carver MD at 15:39 EDT ,
--- NOTE | 2023-07-14 15:58 | CASEMGMT ---
SW called [facility] and spoke with the coverage line. Patient's repertoire manager is Gigi Jo ([phone]). Patient has 15 hours of aide services a week through [facility] and 7 pureed meals a week through [employer]. RICO let the covering repertoire manager know patient came in from a senior care, but he does not want to return. SW was informed patient's services will be re-instated. 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
--- NOTE | 2023-07-14 16:05 | PCM.PN.HOSP ---
Reason for Visit Reason for Visit: Diagnoses Hypoxemia (07/13/23) Subjective Subjective Patient was seen and examined today, I talked briefly with speech therapy who did not feel the patient needed any additional swallowing eval's, patient has been afebrile since his arrival to the floor yesterday, his white blood cell count has declined. Patient does not complain of any increased shortness of breath, he remains on 2 L of oxygen via nasal cannula. Patient states he would like to be discharged home when he is stable, he does not want to return to the long-term, I talked to discharge planning about this and they will have discussions with his significant other who helps take care of him at home. Objective Data Objective Data Vital Signs: Vital Signs Temp Pulse Resp BP Pulse Ox O2 Del Method O2 Flow Rate 98.8 F 65 18 121/81 H 100 Nasal Cannula 2 07/14/23 12:00 07/14/23 12:00 07/14/23 12:00 07/14/23 12:00 07/14/23 12:00 07/14/23 12:00 07/14/23 14:25 Oxygen Flow Rate (L/min) 2 Oxygen Delivery Method Nasal Cannula Weight: 127.913 kg Body Mass Index (BMI) 40.4 Intake & Output: Intake and Output for Last 24 Hours 07/12/23 07/13/23 07/14/23 23:59 23:59 23:59 Intake Total 1240 / 1240 100 / 100 Output Total 400 / 400 Balance 1240 / 1240 -300 / -300 Lab / Micro Data 07/14/23 06:30 07/14/23 06:30 Labs: Laboratory Results - last 24 hr 07/13/23 17:34: POC Glucose 295 H 07/13/23 23:16: POC Glucose 122 H 07/14/23 06:30: WBC 13.8 H, RBC 3.77 L, Hgb 10.6 L, Hct 34.6 L, MCV 91.8, MCH 28.1, MCHC 30.6 L, RDW Std Deviation 47.8 H, RDW Coeff of James 14.2, Plt Count 192, MPV 11.0, Immature Gran % (Auto) 0.500, Neut % (Auto) 78.1 H, Lymph % (Auto) 12.8 L, [place] % (Auto) 7.2, Eos % (Auto) 0.9, Baso % (Auto) 0.5, Absolute Neuts (auto) 10.8 H, Absolute Lymphs (auto) 1.77, Nucleated RBC % 0, Sodium 144, Potassium 4.1, Chloride 107, Carbon Dioxide 34.0 H, Anion Gap 3 L, BUN 19 H, Creatinine 1.09, Estim Creat Clear Calc 70.69, Est GFR (MDRD) Af Amer 88, Est GFR (MDRD) Non-Af 72, BUN/Creatinine Ratio 17.4, Glucose 146 H, Calcium 8.6 07/14/23 07:57: POC Glucose 151 H 07/14/23 10:32: POC Glucose 163 H Micro: Microbiology 07/13/23 15:15 Urine Catheter - Catheter Legionella Antigen - Final 07/13/23 15:15 Urine Catheter - Catheter Streptococcus pneumoniae Antigen (M - Final 07/13/23 07:45 Nasal Secretion SARS-CoV-2 & FLU Antigen (Rapid) - Final Radiography Diagnostic Testing: Radiology Impression Chest X-Ray 07/14/23 14:49 IMPRESSION: Minimal residual changes are seen at the lung bases. There has been improvement as compared to prior study. Electronically Signed: Den Carver MD at 15:39 EDT , Physical Exam Narrative alert, oriented x3 and no apparent distress Constitutional Narrative: Patient appears older than his stated age General Appearance: cooperative, well kempt and well developed Orientation / Consciousness: awake, oriented to person, oriented to place and oriented to time HEENT normocephalic, head/scalp atraumatic, hearing grossly normal bilaterally and moist oral mucous membranes Eyes PERRL, EOMs intact bilaterally and conjunctivae normal Neck supple, no JVD, thyroid normal and no carotid bruits General: trachea midline Resp normal respiratory effort, no retractions and no use of accessory muscles Resp Narrative: Breath sounds are diminished at the right lung base, no rales rhonchi or wheezes were noted Auscultation: Negative for rales, rhonchi or wheezes Cardio regular rate, regular rhythm, S1 normal heart sound, S2 normal heart sound, no murmurs, no rub and no gallops GI normal to inspection, nondistended, normoactive bowel sounds, soft to palpation, non-tender and non-distended Extremity Extremity Narrative: There is an ulceration noted on the plantar surface of the patient's left foot near its medial aspect near the calcaneus, this ulceration is approximately 2 to 3 cm in diameter, its margins are clean and there is no discharge noted from the area. There is no erythema noted over the area. Patient has evidence of a prior transmetatarsal amputation of the right foot noted Skin Skin Narrative: There is noted to be an ulceration on the plantar surface of the patient's left foot as described previously Neuro oriented x3, CN's II-XII intact bilaterally, moves all extremities, no focal motor deficits and no sensory deficits noted Sensorium / Orientation: awake and alert Speech: speech normal Psych affect normal Assessment & Plan Assessment/Plan (1) Leukocytosis: (2) Hypoxia: PLAN: Plan 1. Acute hypoxia on a backdrop of chronic hypoxic respiratory failure-etiology unclear at this point, possibly secondary to pneumonia, another possibility is an acute mucous plug-patient is currently only on 2 L of nasal cannula oxygen which is less than his requirement at the nursing facility, again speech therapy does not feel he needs further diagnostic studies #2 acute pneumonia-most probably bacterial, I am unsure if the patient had an aspiration event, again patient will be maintained on IV Zosyn, he will receive aerosol treatments #3 chronic hypoxic respiratory failure-patient is usually on 4 L via nasal cannula, he only requires 2 L at this time, pulse ox will be monitored #4 type 2 diabetes-blood sugars will be monitored, sliding scale insulin will be administered #5 chronic obstructive pulmonary disease-patient will remain on aerosol treatments #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 #10 peripheral vascular disease-complicates care, medical course, recovery, and prognosis #11 chronic anxiety and depression-patient will remain on his current medications Total clinical time spent by myself addressing the patient's medical issues, reviewing all of his data, and collaborating with patient's care team: 35 minutes Charges/Coding Visit Charges Inpatient E&M: 14564 Subs Hosp L2
--- NOTE | 2023-07-14 16:34 | CASEMGMT ---
ALICE [place]EN[place]: [facility] phoned and they are unable to accept this pt d/t his acuity at this time. Will notify pt. Cole Boyle RN CM
--- NOTE | 2023-07-14 16:44 | CASEMGMT ---
ALICE [place]EN[place] Follow-up: pt and pt's S.O. notified that [facility] is unable to accept. Their second preference is [facility]. SHIRLEY Quiñones X Ray Operator notified of need to send referral. Cole Boyle RN CM
--- NOTE | 2023-07-14 16:52 | CASEMGMT ---
[facility]charge [facility]. Nuria Singh, Discharge Planning Asst.
[2023-07-14 17:27] LABS: Bedside Glucose 268 mg/dL (74-106)
[2023-07-14 18:00] VITALS: BP 125/84; PULSE 61; RESP 16; TEMP 36.9; O2SAT 98
[2023-07-14] MEDS: traZODone 100 MG Tablet 150 MG PO (19:59)
[2023-07-14] MEDS: MELATONIN 3 MG TABLET PO (20:00)
[2023-07-14] MEDS: Atorvastatin Calcium 80 MG Tablet PO (20:01)
[2023-07-14 20:28] VITALS: BP 152/65; PULSE 58; RESP 16; TEMP 36.1; O2SAT 99
[2023-07-14 20:36] LABS: Bedside Glucose 86 mg/dL (74-106)
[2023-07-15] MEDS: busPIRone 15 MG TABLET 7.5 MG PO ×2 (05:05→14:25)
[2023-07-15 05:15] VITALS: BP 157/95; PULSE 74; RESP 16; TEMP 36.1; O2SAT 100
[2023-07-15 06:48] LABS: Absolute Neutrophil Count 6.5 X10^3/uL (2.0-7.7); Basophil# 0.03 X10^3/uL; Basophil% 0.3 % (0-1); Eosinophil# 0.18 X10^3/uL; Hematocrit 35.5 % (40-54); Hemoglobin 10.8 g/dL (13.0-16.5); Lymphocyte % 17.5 % (19-41); Mean Corp Hgb Conc 30.4 g/dL (32-36); Mean Corpuscular Hgb 27.1 pg (27.0-32.0); Mean Corpuscular Volume 89.2 fL (80-94); Mean Platelet Vol. 10.9 fl (6.2-12.0); Monocyte# 0.81 X10^3/uL; Monocyte% 8.9 % (0-10); NRBC Flagged by Analyzer 0 % (0-5); Neutrophil # 6.49 X10^3/uL (2.7-7.7); Neutrophil % 70.9 % (47-70); Platelet Count 202 K/mm3 (150-450); RBC Distribution Width CV 14.1 % (11.6-14.6); Red Blood Count 3.98 M/mm3 (4.6-6.2); White Blood Count 9.2 K/mm3 (4.4-11.0)
[2023-07-15 07:47] VITALS: BP 159/69; PULSE 76; RESP 16; TEMP 36.7; O2SAT 98
[2023-07-15] MEDS: Aspirin E.C. 81 MG Tablet PO (07:57)
[2023-07-15] MEDS: Carvedilol 25 MG Tablet PO ×2 (07:57→17:17)
[2023-07-15] MEDS: Insulin Lispro 100 UNIT/ML INSULN.PEN 14 UNIT SC ×3 (08:36→17:16)
[2023-07-15 08:51] LABS: Bedside Glucose 145 mg/dL (74-106)
--- NOTE | 2023-07-15 10:00 | DCINST_ITS ---
Discharge Instructions Diet Discharge Diet: Low fat / Low cholesterol and 1800 Calorie Control Diet Activity Discharge Activity: Return to Normal Activity Weight Bearing Status: Weight bearing as tolerated Dressing / Incision Call your doctor if you observe: Fever of 101 or Higher, Coldness, Increased Pain, Numbness or Tingling, Change in Color, Inability to urinate, Inability to have a bowel movement, Shortness of breath, Dizziness, Fainting spells, Swelling in the ankles, Chest pain, Prolonged hiccupping, Increased palpitations (irregular heartbeat) and Calf discomfort Follow Up Care When: IN 2 WEEKS Test Results: Test results from this visit will be discussed in further detail at your follow- up appointment, if applicable. Discharge Plan Admission Admit Date/Time: 07/13/23 14:56 Primary Reason for Your Visit: Pneumonia Attending Provider: Casa Helton Primary Care Provider: Doretha Brown Consulting Providers: Rubio Miller Discharge Orders/Prescriptions Prescriptions: New amoxicillin-pot clavulanate 875-125 mg tablet 1 tab PO BID 5 Days Qty: 10 0RF dextromethorphan-guaifenesin [Mucinex DM] 60-1,200 mg tablet extended release 12 hr 1 tab PO Q12H 7 Days Qty: 14 0RF insulin lispro [Humalog KwikPen Insulin] 100 unit/mL Insulin Pen See Protocol subcut ACHS Qty: 0 0RF Protocol: 4. Sliding Scale Insulin High-Med Dosing Condition: 150-199 mg/dl = 2 units Condition: 200-259 mg/dl = 4 units Condition: 260-324 mg/dl = 6 units Condition: 325-374 mg/dl = 8 units Condition: 375-409 mg/dl = 10 units Condition: 410-449 mg/dl = 11 units Condition: Greater than 449 call physician Protocol Text: - Use for Total Daily Dose of Insulin 56-80 units - Patient who are insulin resistant or septic HIGH MEDIUM DOSING ALGORITHM Continued aspirin [Adult Aspirin Regimen] 81 mg tablet,delayed release (DR/EC) 81 mg PO DAILY (DME) Ultra-Light Rollator Misc See Rx Instructions .Route Qty: 1 2RF Rx Instructions: As directed (DME) pen needle, diabetic 33 gauge x 5/16 needle See Rx Instructions .Route Qty: 200 3RF Rx Instructions: As directed melatonin 3 mg tablet 3 mg PO QHS fluoxetine 20 mg capsule 20 mg PO DAILY acetaminophen 500 MG tablet 1,000 mg PO Q24H PRN (Reason: PAIN ) Artificial Tears([id number]) 1-0.2-0.2 % Drops 2 drp EACH EYE Q1H PRN (Reason: DRY EYES) Qty: 0 0RF (DME) gauze bandage [Bordered Gauze] 4 X 4 bandage See Rx Instructions .ROUTE .MEDSUPPLY Qty: 14 2RF Rx Instructions: Daily cleanse left foot wound with soap and water, dry and apply Betadine solution and apply clean dressing losartan 50 mg tablet 50 mg PO DAILY fluoxetine 40 mg capsule 40 mg PO DAILY trazodone 150 mg tablet 150 mg PO QHS carvedilol 12.5 mg tablet 25 mg PO BID amlodipine 2.5 mg tablet 2.5 mg PO DAILY pantoprazole 40 mg tablet,delayed release (DR/EC) 40 mg PO DAILY buspirone 7.5 mg tablet 7.5 mg PO TID hydroxyzine HCl 25 mg tablet 25 mg PO QHS PRN (Reason: ANXIETY ) furosemide 40 mg tablet 40 mg PO DAILY atorvastatin 80 mg tablet 80 mg PO QHS finasteride 5 mg tablet 5 mg PO DAILY menthol-zinc oxide [Calmoseptine] 0.44-20.6 % Ointment 1 applic topical BID Qty: 0 0RF Protocol: *Topical Application Instructions APPLICATION INSTRUCTIONS: buttock pregabalin 75 mg Capsule 75 mg PO BID Qty: 10 0RF multivitamin,mt-enta-Qp-FA-min Tablet 1 tab PO DAILY clopidogrel 75 mg tablet 75 mg PO DAILY Qty: 30 1RF isosorbide mononitrate 30 mg tablet extended release 24 hr 30 mg PO DAILY Qty: 30 1RF Changed insulin lispro [Humalog KwikPen Insulin] 100 unit/mL Insulin Pen 15 unit subcut TIDAC Qty: 0 0RF insulin glargine-yfgn 100 unit/mL (3 mL) Insulin Pen 25 unit subcut BID Qty: 0 0RF Referrals / Follow Up: Stefano Lanier DO [Med Staff - Active Staff] - Within 2 Weeks Doretha Brown MD [Primary Care Provider] - Disposition Disposition (needs filled in before D/C Order can be placed): Home, Self Care
--- NOTE | 2023-07-15 10:01 | PCM.PN.HOSP ---
Reason for Visit Reason for Visit: Diagnoses Elevated white blood cell count, unspecified (07/13/23) Hypoxemia (07/13/23) Objective Data Objective Data Vital Signs: Vital Signs Temp Pulse Resp BP Pulse Ox O2 Del Method O2 Flow Rate 98.1 F 76 16 159/69 H 98 Nasal Cannula 2 07/15/23 07:47 07/15/23 07:47 07/15/23 07:47 07/15/23 07:47 07/15/23 07:47 07/15/23 07:50 07/15/23 07:50 Oxygen Flow Rate (L/min) 2 Oxygen Delivery Method Nasal Cannula Weight: 282 lb Body Mass Index (BMI) 40.4 Intake & Output: Intake and Output for Last 24 Hours 07/13/23 07/14/23 07/15/23 23:59 23:59 23:59 Intake Total 1240 / 1240 1160 / 1160 0.25 / 0.25 Output Total 1850 / 1850 400 / 400 Balance 1240 / 1240 -690 / -690 -399.75 / -399.75 Lab / Micro Data 07/15/23 06:21 07/14/23 06:30 Labs: Laboratory Results - last 24 hr 07/14/23 10:32: POC Glucose 163 H 07/14/23 17:05: POC Glucose 268 H 07/14/23 20:13: POC Glucose 86 07/15/23 06:21: WBC 9.2, RBC 3.98 L, Hgb 10.8 L, Hct 35.5 L, MCV 89.2, MCH 27.1, MCHC 30.4 L, RDW Std Deviation 46.0 H, RDW Coeff of James 14.1, Plt Count 202, MPV 10.9, Immature Gran % (Auto) 0.400, Neut % (Auto) 70.9 H, Lymph % (Auto) 17.5 L, [place] % (Auto) 8.9, Eos % (Auto) 2.0, Baso % (Auto) 0.3, Absolute Neuts (auto) 6.5, Absolute Lymphs (auto) 1.60, Nucleated RBC % 0 07/15/23 07:45: POC Glucose 145 H Micro: Microbiology 07/14/23 05:15 Urine, Clean Catch Urine Culture - Preliminary Culture exhibits no growth. 07/13/23 08:31 Blood Culture (Wb) - Anticubital Right Blood Culture - Preliminary No growth in 48 hours. 07/13/23 08:19 Blood Culture (Wb) - Left Hand Blood Culture - Preliminary 07/13/23 15:15 Urine Catheter - Catheter Legionella Antigen - Final 07/13/23 15:15 Urine Catheter - Catheter Streptococcus pneumoniae Antigen (M - Final 07/13/23 07:45 Nasal Secretion SARS-CoV-2 & FLU Antigen (Rapid) - Final Radiography Diagnostic Testing: Radiology Impression Chest X-Ray 07/14/23 14:49 IMPRESSION: Minimal residual changes are seen at the lung bases. There has been improvement as compared to prior study. Electronically Signed: Den Carver MD at 15:39 EDT , Assessment & Plan Assessment/Plan (1) Leukocytosis: (2) Hypoxia: PLAN: Plan 1. Acute hypoxia on a backdrop of chronic hypoxic respiratory failure-etiology unclear at this point, possibly secondary to pneumonia, another possibility is an acute mucous plug-patient is currently only on 2 L of nasal cannula oxygen which is less than his requirement at the nursing facility, again speech therapy does not feel he needs further diagnostic studies #2 acute pneumonia-most probably bacterial, I am unsure if the patient had an aspiration event, again patient will be maintained on IV Zosyn, he will receive aerosol treatments #3 chronic hypoxic respiratory failure-patient is usually on 4 L via nasal cannula, he only requires 2 L at this time, pulse ox will be monitored #4 type 2 diabetes-blood sugars will be monitored, sliding scale insulin will be administered #5 chronic obstructive pulmonary disease-patient will remain on aerosol treatments #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 #10 peripheral vascular disease-complicates care, medical course, recovery, and prognosis #11 chronic anxiety and depression-patient will remain on his current medications Total clinical time spent by myself addressing the patient's medical issues, reviewing all of his data, and collaborating with patient's care team: 35 minutes
[2023-07-15] MEDS: Losartan Potassium 50 MG Tablet PO (10:34)
[2023-07-15] MEDS: Heparin Injection (Vial) 5,000 UNIT/ML VIAL 5000 UNIT SC (10:35)
[2023-07-15] MEDS: Isosorbide Mononitrate 30 MG Tablet PO (10:35)
[2023-07-15] MEDS: Insulin Glargine-YFGN 100 UNIT/ML Pen 30 UNIT SC (10:35)
[2023-07-15] MEDS: Furosemide 40 MG Tablet PO (10:36)
[2023-07-15] MEDS: amLODIPine 2.5 MG Tablet PO (10:37)
[2023-07-15] MEDS: Nystatin Powder 15gm Bottle 1 APPLIC TOPICAL (10:37)
[2023-07-15] MEDS: Clopidogrel Bisulfate 75 MG Tablet PO (10:37)
[2023-07-15] MEDS: Pantoprazole Sodium 40 MG Tablet PO (10:38)
[2023-07-15] MEDS: Fluoxetine HCl 40 MG CAPSULE PO (10:38)
[2023-07-15] MEDS: FLUoxetine 20 MG Capsule PO (10:38)
[2023-07-15] MEDS: Finasteride 5 MG Tablet PO (10:38)
[2023-07-15] MEDS: Pregabalin 75 MG Capsule PO (10:43)
--- NOTE | 2023-07-15 11:00 | CASEMGMT ---
Social Work MS3 Received notice from MARISSA Heredia, that patient is requesting to speak with social science manager. Chart reviewed. Noted plan in works for skilled home health care through [facility]. Also noted patient is a waiver client through [facility] agency on Aging. Patient receives 15 hours of aide services a week through [facility] and 7 pureed meals a week through [employer]. Patient's sample case porter is Gigi Jo ([phone]). Met with patient in room who inquires on update about discharge planning to home. [facility] but wondering about the second referral. Patient shared that he is supposed to discharge today and wants to go home. Shared that has been in a SNF for about 7-8 weeks now, and is just ready to be in home environment. Supportive listening provided. Patient reports to feel safe going home and that his and son can assist with care needs. Educated patient that SW, RN CM and discharge medical record assistant work as a team, and that RN CM would be in later today to discuss update on HHC referral, as well as discussion about patient's request for wheelchair. Patient expressed understanding. Update given to RN CM. PLAN: Home with skilled home health care, as well as waiver services from the [facility]. -ESTHER Solorzano, PREPARATION PLANT REPAIRER
--- NOTE | 2023-07-15 11:13 | CASEMGMT ---
Discharge Planning Patient has been accepted by [facility]. ALICE CM updated. SOC will be 07/19/23. Nuria Singh, Discharge Planning Asst.
--- NOTE | 2023-07-15 11:22 | CASEMGMT ---
Discharge Planning HH order sent to [facility] via [facility]. Nuria Singh, Discharge Planning Asst.
--- NOTE | 2023-07-15 11:25 | CASEMGMT ---
Verified oxygen rx with [facility]. Also confirmed that pt received a transport w/c in January and will not qualify for another one. RN CM into pt room. Pt aware of the w/c issue. He is not the most happy about this but verbalizes understanding. Pt states his will bring in a portable tank for dc home. Pt is aware that [facility] has accepted pt for services and will start on Wednesday. Pt denies any further homegoing needs.
--- NOTE | 2023-07-15 11:36 | DS.PCM_ITS ---
Providers Date of Admission: 07/13/23 Date of Discharge: 07/15/23 Primary Care Physician: Dr. Doretha Brown MD Consultations 07/13/23 16:26 Consult: Onc/Wound/reference librarian Routine Comment: Reason For Visit: ASPIRATION PNEUMONIA, FEBRILE ILLNESS Diagnosis Discharge Diagnosis (1) Leukocytosis: Status: Acute Code(s): D72.829 - Elevated white blood cell count, unspecified (2) Hypoxia: Status: Resolved Code(s): R09.02 - Hypoxemia Plan This is a 63-year-old gentleman was admitted for shortness of breath and chills. Chest x-ray shows chronic elevated right hemidiaphragm with mild atelectasis. In ED patient had fever temperature 101.5 Fahrenheit. Patient further admitted for suspicion of aspiration 1. Acute hypoxia with history of chronic hypoxic respiratory failure- possibly secondary to pneumonia, another possibility is an acute mucous plug: At [facility] patient was on 4 L of oxygen currently is on 2 L. Patient was evaluated bytherapies and found to does not need further diagnostic studies. -patient is currently only on 2 L of nasal cannula oxygen which is less than his requirement at the nursing facility, again speech therapy does not feel he needs further diagnostic studies #2 acute pneumonia-most probably bacterial or possible aspiration event: Patient had 2 days of IV antibiotic, Zosyn and discharged on Augmentin to complete a total of 7 days. #3 chronic hypoxic respiratory failure-patient is usually on 4 L via nasal cannula, he only requires 2 L at this time. Patient is being discharged #4 type 2 diabetes-blood sugars: Patient blood sugar was high therefore Lantus insulin dose increased to Dr. Hunter subcutaneous twice daily but last night blood sugar was in the 80s therefore decreased to 25 units twice daily with Accu-Cheks before meals and at bedtime covered with Humalog sliding scale. Patient also on a scheduled Humalog insulin. #5 chronic obstructive pulmonary disease-patient was treated with bronchodilators. He follows Dr. Sibley therefore advised to follow-up in 2 weeks. 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 #10 peripheral vascular disease and diabetic wound on the plantar aspect of left foot. Discussed with the wound nurse. Wound is healing currently of dime size. Complicates care, medical course, recovery, and prognosis. Patient follows Dr. Hess in wound center. Encouraged to keep follow-up with #11 chronic anxiety and depression-patient will remain on his current medications Discharge medication reconciliation done. Discharge follow-up instructions completed. Discharge process discussed with the patient and all questions were answered to patient's satisfaction. Total time spent, exact 35 minutes on discharge meds reconciliation, examination, coordination of care with nurses and ancillary staff, review of imaging and blood test and discussion with the patient on follow-up instruction s. Medications at Discharge Home Medications acetaminophen 500 mg tablet 1,000 mg PO Q24H PRN PAIN 02/11/21 aspirin 81 mg tablet,delayed release (Adult Aspirin Regimen) 81 mg PO DAILY HEART HEALTH 11/05/21 peg [id number]-[id number]-yicnfghm 1 %-0.2 %-0.2 % eye drops (Artificial Tears ([id number])) 2 drp EACH EYE Q1H PRN DRY EYES #0 mL 11/14/21 gauze bandage 4 X 4 (Bordered Gauze) #14 ea 07/03/22 walker (Ultra-Light Rollator [facility] [place]) #1 ea 07/21/22 pen needle, diabetic 33 gauge x 5/16 #200 ea 12/02/22 fluoxetine 20 mg capsule 20 mg PO DAILY ANXIETY 03/23/23 melatonin 3 mg tablet 3 mg PO QHS INSOMNIA 03/23/23 amlodipine 2.5 mg tablet 2.5 mg PO DAILY BLOOD PRESSURE 05/25/23 atorvastatin 80 mg tablet 80 mg PO QHS CHOLESTEROL 05/25/23 buspirone 7.5 mg tablet 7.5 mg PO TID ANXIETY 05/25/23 carvedilol 12.5 mg tablet 25 mg PO BID HEART 05/25/23 finasteride 5 mg tablet 5 mg PO DAILY PROSTATE 05/25/23 fluoxetine 40 mg capsule 40 mg PO DAILY ANXIETY 05/25/23 furosemide 40 mg tablet 40 mg PO DAILY FLUID 05/25/23 hydroxyzine HCl 25 mg tablet 25 mg PO QHS PRN ANXIETY 05/25/23 losartan 50 mg tablet 50 mg PO DAILY BLOOD PRESSURE 05/25/23 pantoprazole 40 mg tablet,delayed release 40 mg PO DAILY ACID REFLUX 05/25/23 trazodone 150 mg tablet 150 mg PO QHS INSOMNIA 05/25/23 clopidogrel 75 mg tablet 75 mg PO DAILY BLOOD THINNER #30 tabs 05/28/23 isosorbide mononitrate 30 mg tablet,extended release 24 hr 30 mg PO DAILY HEART #30 tabs 05/28/23 menthol 0.44 %-zinc oxide 20.6 % topical ointment (Calmoseptine) 1 applic topical BID skin irritation #0 grams 06/08/23 pregabalin 75 mg capsule 75 mg PO BID pain #10 caps 06/08/23 multivitamin,gb-qjll-Yu-FA-min 1 tab PO DAILY health maintenance 07/13/23 amoxicillin 875 mg-potassium clavulanate 125 mg tablet 1 tab PO BID 5 days #10 tabs 07/15/23 dextromethorphan-guaifenesin ER 60 mg-1,200 mg tab,extend release,12hr (Mucinex DM) 1 tab PO Q12H 7 days #14 tabs 07/15/23 insulin glargine-yfgn 100 unit/mL (3 mL) subcutaneous pen 25 unit (0.25 mL) subcut BID diabetes #0 mL 07/15/23 insulin lispro 100 unit/mL subcutaneous pen (Humalog KwikPen (U-100) Insulin) 15 unit (0.15 mL) subcut TIDAC diabetes #0 mL 07/15/23 insulin lispro 100 unit/mL subcutaneous pen (Humalog KwikPen (U-100) Insulin) See Protocol subcut ACHS #0 mL 07/15/23 Physical Exam Narrative General: Alert, Oriented x3, Cooperative HEENT: Atraumatic, PERRLA, EOMI, Normocephalic Oral: No Gingival or Mucosal Lesions/ Ulcerations Neck: Supple, No JVD, Negative Carotid Bruits Lungs: Air entry diminished in bilateral lung bases. Right hemidiaphragm elevation. No crepitation/rhonchi Cardiovascular: Regular rate, Regular Rhythm, Normal S1, Normal S2, No murmurs Abdomen: Bowel Sounds Present, Soft, Non Tender, Non-Distended : No renal angle tenderness. No suprapubic tenderness. Extremities: No edema, Capillary Refill Less than 3 Seconds Skin: Chronic healing wound over the left flank, back in sinus. Musculoskeletal: No Tenderness to Palpation of Joints or Extremities Neurological: Cranial nerves II-XII grossly intact, DTR 2+/4. Chronic neuropathy in the feet. Psych/Mental Status: Normal Affect, Appropriate. Weight / BMI Weight Weight: 282 lb Body Mass Index (BMI) 40.4 ABG / Lab / Microbiology Data 07/15/23 06:21 07/14/23 06:30 Laboratory: Laboratory Results - last 24 hr 07/14/23 17:05: POC Glucose 268 H 07/14/23 20:13: POC Glucose 86 07/15/23 06:21: WBC 9.2, RBC 3.98 L, Hgb 10.8 L, Hct 35.5 L, MCV 89.2, MCH 27.1, MCHC 30.4 L, RDW Std Deviation 46.0 H, RDW Coeff of James 14.1, Plt Count 202, MPV 10.9, Immature Gran % (Auto) 0.400, Neut % (Auto) 70.9 H, Lymph % (Auto) 17.5 L, Brantley % (Auto) 8.9, Eos % (Auto) 2.0, Baso % (Auto) 0.3, Absolute Neuts (auto) 6.5, Absolute Lymphs (auto) 1.60, Nucleated RBC % 0 07/15/23 07:45: POC Glucose 145 H Microbiology: Microbiology 07/14/23 05:15 Urine, Clean Catch Urine Culture - Preliminary Culture exhibits no growth. 07/13/23 08:31 Blood Culture (Wb) - Anticubital Right Blood Culture - Preliminary No growth in 48 hours. 07/13/23 08:19 Blood Culture (Wb) - Left Hand Blood Culture - Preliminary 07/13/23 15:15 Urine Catheter - Catheter Legionella Antigen - Final 07/13/23 15:15 Urine Catheter - Catheter Streptococcus pneumoniae Antigen (M - Final 07/13/23 07:45 Nasal Secretion SARS-CoV-2 & FLU Antigen (Rapid) - Final Radiography Diagnostic Testing: Radiology Impression Chest X-Ray 07/14/23 14:49 IMPRESSION: Minimal residual changes are seen at the lung bases. There has been improvement as compared to prior study. Electronically Signed: Den Carver MD at 15:39 EDT , D/C Instructions Discharge Diet: Low fat / Low cholesterol and 1800 Calorie Control Diet Weight Bearing Status: Weight bearing as tolerated Call your doctor if you observe: Fever of 101 or Higher, Coldness, Increased Pa in, Numbness or Tingling, Change in Color, Inability to urinate, Inability to have a bowel movement, Shortness of breath, Dizziness, Fainting spells, Swelling in the ankles, Chest pain, Prolonged hiccupping, Increased palpitations (irregular heartbeat) and Calf discomfort When: IN 2 WEEKS Meaningful Use Info Meaningful Use Diagnoses (Choose all that apply): None applicable Discharge Plan Admission Admit Date/Time: 07/13/23 14:56 Primary Reason for Your Visit: Pneumonia Attending Provider: Casa Helton Primary Care Provider: Doretha Brown Consulting Providers: Rubio Miller Discharge Orders/Prescriptions Prescriptions: New amoxicillin-pot clavulanate 875-125 mg tablet 1 tab PO BID 5 Days Qty: 10 0RF dextromethorphan-guaifenesin [Mucinex DM] 60-1,200 mg tablet extended release 12 hr 1 tab PO Q12H 7 Days Qty: 14 0RF insulin lispro [Humalog KwikPen Insulin] 100 unit/mL Insulin Pen See Protocol subcut ACHS Qty: 0 0RF Protocol: 4. Sliding Scale Insulin High-Med Dosing Condition: 150-199 mg/dl = 2 units Condition: 200-259 mg/dl = 4 units Condition: 260-324 mg/dl = 6 units Condition: 325-374 mg/dl = 8 units Condition: 375-409 mg/dl = 10 units Condition: 410-449 mg/dl = 11 units Condition: Greater than 449 call physician Protocol Text: - Use for Total Daily Dose of Insulin 56-80 units - Patient who are insulin resistant or septic HIGH MEDIUM DOSING ALGORITHM Continued aspirin [Adult Aspirin Regimen] 81 mg tablet,delayed release (DR/EC) 81 mg PO DAILY (DME) Ultra-Light Rollator Misc See Rx Instructions .Route Qty: 1 2RF Rx Instructions: As directed (DME) pen needle, diabetic 33 gauge x 5/16 needle See Rx Instructions .Route Qty: 200 3RF Rx Instructions: As directed melatonin 3 mg tablet 3 mg PO QHS fluoxetine 20 mg capsule 20 mg PO DAILY acetaminophen 500 MG tablet 1,000 mg PO Q24H PRN (Reason: PAIN ) Artificial Tears([id number]-drvd) 1-0.2-0.2 % Drops 2 drp EACH EYE Q1H PRN (Reason: DRY EYES) Qty: 0 0RF (DME) gauze bandage [Bordered Gauze] 4 X 4 bandage See Rx Instructions .ROUTE .MEDSUPPLY Qty: 14 2RF Rx Instructions: Daily cleanse left foot wound with soap and water, dry and apply Betadine solution and apply clean dressing losartan 50 mg tablet 50 mg PO DAILY fluoxetine 40 mg capsule 40 mg PO DAILY trazodone 150 mg tablet 150 mg PO QHS carvedilol 12.5 mg tablet 25 mg PO BID amlodipine 2.5 mg tablet 2.5 mg PO DAILY pantoprazole 40 mg tablet,delayed release (DR/EC) 40 mg PO DAILY buspirone 7.5 mg tablet 7.5 mg PO TID hydroxyzine HCl 25 mg tablet 25 mg PO QHS PRN (Reason: ANXIETY ) furosemide 40 mg tablet 40 mg PO DAILY atorvastatin 80 mg tablet 80 mg PO QHS finasteride 5 mg tablet 5 mg PO DAILY menthol-zinc oxide [Calmoseptine] 0.44-20.6 % Ointment 1 applic topical BID Qty: 0 0RF Protocol: *Topical Application Instructions APPLICATION INSTRUCTIONS: buttock pregabalin 75 mg Capsule 75 mg PO BID Qty: 10 0RF multivitamin,nw-jput-Lw-FA-min Tablet 1 tab PO DAILY clopidogrel 75 mg tablet 75 mg PO DAILY Qty: 30 1RF isosorbide mononitrate 30 mg tablet extended release 24 hr 30 mg PO DAILY Qty: 30 1RF Changed insulin lispro [Humalog KwikPen Insulin] 100 unit/mL Insulin Pen 15 unit subcut TIDAC Qty: 0 0RF insulin glargine-yfgn 100 unit/mL (3 mL) Insulin Pen 25 unit subcut BID Qty: 0 0RF Referrals / Follow Up: Stefano Lanier DO [Med Staff - Active Staff] - Within 2 Weeks Doretha Brown MD [Primary Care Provider] - Disposition Disposition (needs filled in before D/C Order can be placed): Home, Self Care Charges/Coding Visit Charges Inpatient E&M: 96513 Disch Hosp >30min
[2023-07-15 12:01] LABS: Bedside Glucose 227 mg/dL (74-106)
--- NOTE | 2023-07-15 12:06 | PHA.DC_ITS ---
Pharmacy [facility] has performed discharge medication reconciliation and counseling for this patient. The patient was counseled on the following discharge medications and changes in medications for homegoing were reviewed. 1. Augmentin 2. Mucinex DM 3. Humalog - Change in TIDCM dose and correctional scale 4. Glargine - Change in Dose The Reason for Use, instructions for use, and potential side effects were reviewed for all new medications. The patient's questions regarding all of their medications were answered. The patient was able to verbally demonstrate an understanding of their discharge medications. The patient's discharge medication list was reviewed for discrepancies and discrepancies were resolved. Patient counselled by Madhuri Alexander PharmD Candidate Medications at Discharge Home Medications acetaminophen 500 mg tablet 1,000 mg PO Q24H PRN PAIN 02/11/21 aspirin 81 mg tablet,delayed release (Adult Aspirin Regimen) 81 mg PO DAILY HEART HEALTH 11/05/21 peg 142-[id number]-[id number] 1 %-0.2 %-0.2 % eye drops (Artificial Tears ([id number])) 2 drp EACH EYE Q1H PRN DRY EYES #0 mL 11/14/21 gauze bandage 4 X 4 (Bordered Gauze) #14 ea 07/03/22 walker (Ultra-Light Rollator [facility] [place] #1 ea 07/21/22 pen needle, diabetic 33 gauge x 04/13 #200 ea 12/02/22 fluoxetine 20 mg capsule 20 mg PO DAILY ANXIETY 03/23/23 melatonin 3 mg tablet 3 mg PO QHS INSOMNIA 03/23/23 amlodipine 2.5 mg tablet 2.5 mg PO DAILY BLOOD PRESSURE 05/25/23 atorvastatin 80 mg tablet 80 mg PO QHS CHOLESTEROL 05/25/23 buspirone 7.5 mg tablet 7.5 mg PO TID ANXIETY 05/25/23 carvedilol 12.5 mg tablet 25 mg PO BID HEART 05/25/23 finasteride 5 mg tablet 5 mg PO DAILY PROSTATE 05/25/23 fluoxetine 40 mg capsule 40 mg PO DAILY ANXIETY 05/25/23 furosemide 40 mg tablet 40 mg PO DAILY FLUID 05/25/23 hydroxyzine HCl 25 mg tablet 25 mg PO QHS PRN ANXIETY 05/25/23 losartan 50 mg tablet 50 mg PO DAILY BLOOD PRESSURE 05/25/23 pantoprazole 40 mg tablet,delayed release 40 mg PO DAILY ACID REFLUX 05/25/23 trazodone 150 mg tablet 150 mg PO QHS INSOMNIA 05/25/23 clopidogrel 75 mg tablet 75 mg PO DAILY BLOOD THINNER #30 tabs 05/28/23 isosorbide mononitrate 30 mg tablet,extended release 24 hr 30 mg PO DAILY HEART #30 tabs 05/28/23 menthol 0.44 %-zinc oxide 20.6 % topical ointment (Calmoseptine) 1 applic topical BID skin irritation #0 grams 06/08/23 pregabalin 75 mg capsule 75 mg PO BID pain #10 caps 06/08/23 multivitamin,gg-sdre-Ff-FA-min 1 tab PO DAILY health maintenance 07/13/23 amoxicillin 875 mg-potassium clavulanate 125 mg tablet 1 tab PO BID 5 days #10 tabs 07/15/23 dextromethorphan-guaifenesin ER 60 mg-1,200 mg tab,extend release,12hr (Mucinex DM) 1 tab PO Q12H 7 days #14 tabs 07/15/23 insulin glargine-yfgn 100 unit/mL (3 mL) subcutaneous pen 25 unit (0.25 mL) subcut BID diabetes #0 mL 07/15/23 insulin lispro 100 unit/mL subcutaneous pen (Humalog KwikPen (U-100) Insulin) 15 unit (0.15 mL) subcut TIDAC diabetes #0 mL 07/15/23 insulin lispro 100 unit/mL subcutaneous pen (Humalog KwikPen (U-100) Insulin) See Protocol subcut ACHS #0 mL 07/15/23
--- NOTE | 2023-07-15 12:13 | CASEMGMT ---
Discharge Planning Discharge instructions sent to [facility] via [facility]. Nuria Singh, Discharge Planning Asst.
[2023-07-15] MEDS: Insulin Lispro 100 UNIT/ML INSULN.PEN SC (12:20)
[2023-07-15 14:18] VITALS: BP 130/75; PULSE 64; RESP 16; TEMP 36.9; O2SAT 98
[2023-07-15 16:46] LABS: Bedside Glucose 148 mg/dL (74-106)
--- NOTE | 2023-07-15 19:16 | CASEMGMT ---
Social Work MS3 Collaboration with RN LIZETT today. Patient is set for discharge home with referral to skilled home health care. Called [facility] clinical case manager is Gigi Jo ([phone]) and left message regarding discharge, so that aide services and meals can be resumed. Left this lyric writer's contact information to call back if needed. No other social work services requested or indicated. -ESTHER Solorzano
== END 2023-07-15 20:20 | disposition home health service (06) | DRG 194 ==
LOC: ED 15:10 → MS3 16:02
PROVIDERS: Admitting Provider Internal Medicine; Emergency Provider Emergency Medicine; PCP Internal Medicine; Visit Provider Internal Medicine
DX: J18.9 Pneumonia, unspecified organism (principal); J96.11 Chronic respiratory failure with hypoxia; J44.0 Chronic obstructive pulmonary disease with (acute) lower respiratory infection; Z68.41 Body mass index [BMI] 40.0-44.9, adult; E11.22 Type 2 diabetes mellitus with diabetic chronic kidney disease; N18.31 Chronic kidney disease, stage 3a; L97.529 Non-pressure chronic ulcer of other part of left foot with unspecified severity; E66.01 Morbid (severe) obesity due to excess calories; E11.51 Type 2 diabetes mellitus with diabetic peripheral angiopathy without gangrene; E11.42 Type 2 diabetes mellitus with diabetic polyneuropathy; Z79.4 Long term (current) use of insulin; E11.621 Type 2 diabetes mellitus with foot ulcer; E11.65 Type 2 diabetes mellitus with hyperglycemia; I12.9 Hypertensive chronic kidney disease with stage 1 through stage 4 chronic kidney disease, or unspecified chronic kidney disease; F32.A Depression, unspecified; M54.50 Low back pain, unspecified; I25.10 Atherosclerotic heart disease of native coronary artery without angina pectoris; E78.00 Pure hypercholesterolemia, unspecified; Z79.02 Long term (current) use of antithrombotics/antiplatelets; Z95.5 Presence of coronary angioplasty implant and graft; Z79.82 Long term (current) use of aspirin
CPT/HCPCS: 36415; 71046; 80048; 81001; 82803; 82962; 83605; 83880; 84484; 85025; 87040; 87086; 87428; 87449; 92610; 93005; 97110; 97161; 97166; 97530; 97535; 97802; 99285; J7030; J7040; J7050; P9612; A4216

== ENCOUNTER 2023-07-27 15:06 | Observation (INO) | payer MEDICARE, MEDICAID, SELFPAY ==
[2023-07-27] VITALS (7 sets, daily range): BP systolic 117–187; BP diastolic 69–92; PULSE 58–66; RESP 14–18; TEMP 36.8–36.9; O2SAT 98–100; BMI 40.3; BMI 39.0
--- NOTE | 2023-07-27 15:39 | EDS_ITS ---
HPI History of Present Illness Chief Complaint: Weakness Informant: patient and EMS Narrative Narrative: I initially talked with the patient and we will talk to the . Patient states he has some sores on his bottom and he slid out of his chair. He states he was in the hospital recently. He was evidently admitted for pneumonia. Patient states he was in rehab for about 2 months. But I think he had an acute kidney injury was in rehab. He then came back in the hospital for a few days with pneumonia. He then went to rehab again and has been home for about 5 to 6 days. My understanding per EMS is that they have made multiple calls on him because he slides out of his chair and he is too weak to get up. His is having trouble caring for him. But patient tells me he has physical therapy at home and they came today and he did well using a rollator. He can walk anywhere. I do not know if the patient is confused or he is trying to paint a picture that is better than what others see. I am waiting to talk to his . I am not sure if she lives with him but it sounds like she does. A prior note stated he lives alone but the EMS stated his is caring for him. The overall summary is it sounds like this patient is too weak to function at home. But he refuses going to a nursing facility. [facility] Medical History CELESTE (acute kidney injury) Ambulates with cane Amputation of one or more toes Anxiety Anxiety and depression Arrhythmia Arthritis Aspiration into airway Aspiration pneumonia Atherosclerotic heart disease of elem coronary artery without angina pectoris Back pain Back spasm Bilateral leg weakness Blind left eye Blister (nonthermal), left foot, initial encounter Bronchiectasis with (acute) exacerbation Cardiology follow-up encounter Chronic cough Chronic respiratory failure with hypoxia CKD (chronic kidney disease) COPD (chronic obstructive pulmonary disease) CPAP (continuous positive airway pressure) dependence Debility, unspecified Depression Diabetes Essential hypertension Gastric reflux GERD (gastroesophageal reflux disease) High cholesterol History of aspiration pneumonia History of diabetes mellitus History of echocardiogram History of edema History of gout History of heart attack History of non-ST elevation myocardial infarction (NSTEMI) (08/2016) History of pain when walking History of steroid therapy History of stress test Hyperglycemia due to type 2 diabetes mellitus Hypertension Insulin dependent diabetes mellitus Kidney disease Kidney stones Kidney stones Leg pain, right Leukocytosis Low back pain Memory impairment Migraines Mood disorder Myocardial infarct Non-smoker Noncompliance by declining intervention or support On home oxygen therapy Peripheral vascular occlusive disease Pneumonia Prostate disease Pulmonary nodule, left Recurrent falls Right ankle pain Right foot pain Shortness of breath on exertion Silent aspiration Sleep apnea Tremor Type 2 diabetes mellitus Type 2 diabetes mellitus with diabetic polyneuropathy Ulcer of left foot, limited to breakdown of skin 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 Wears glasses Wound of left lower extremity Home Medications acetaminophen 500 mg tablet 1,000 mg PO Q24H PRN PAIN 02/11/21 [History Last Taken 05/24/23] aspirin 81 mg tablet,delayed release (Adult Aspirin Regimen) 81 mg PO DAILY HEART HEALTH 11/05/21 [History Last Taken 07/12/23] peg [id number] 1 %-0.2 %-0.2 % eye drops (Artificial Tears ([id number])) 2 drp EACH EYE Q1H PRN DRY EYES #0 mL 11/14/21 [Rx Last Taken 06/04/23] gauze bandage 4 X 4 (Bordered Gauze) #14 ea 07/03/22 [Rx Last Taken Unknown] walker (Ultra-Light Rollator misc) #1 ea 07/21/22 [Rx Last Taken Unknown] pen needle, diabetic 33 gauge x / #200 ea 12/02/22 [Rx Last Taken Unknown] fluoxetine 20 mg capsule 20 mg PO DAILY ANXIETY 03/23/23 [History Last Taken 07/12/23] melatonin 3 mg tablet 3 mg PO QHS INSOMNIA 03/23/23 [History Last Taken 07/12/23] amlodipine 2.5 mg tablet 2.5 mg PO DAILY BLOOD PRESSURE 05/25/23 [History Last Taken 07/12/23] atorvastatin 80 mg tablet 80 mg PO QHS CHOLESTEROL 05/25/23 [History Last Taken 07/12/23] buspirone 7.5 mg tablet 7.5 mg PO TID ANXIETY 05/25/23 [History Last Taken 07/13/23] carvedilol 12.5 mg tablet 25 mg PO BID HEART 05/25/23 [History Last Taken 07/12/23] finasteride 5 mg tablet 5 mg PO DAILY PROSTATE 05/25/23 [History Last Taken 07/12/23] fluoxetine 40 mg capsule 40 mg PO DAILY ANXIETY 05/25/23 [History Last Taken 07/12/23] furosemide 40 mg tablet 40 mg PO DAILY FLUID 05/25/23 [History Last Taken 07/12/23] hydroxyzine HCl 25 mg tablet 25 mg PO QHS PRN ANXIETY 05/25/23 [History Last Taken 06/04/23] losartan 50 mg tablet 50 mg PO DAILY BLOOD PRESSURE 05/25/23 [History Last Taken 07/12/23] pantoprazole 40 mg tablet,delayed release 40 mg PO DAILY ACID REFLUX 05/25/23 [History Last Taken 07/13/23] trazodone 150 mg tablet 150 mg PO QHS INSOMNIA 05/25/23 [History Last Taken 07/12/23] clopidogrel 75 mg tablet 75 mg PO DAILY BLOOD THINNER #30 tabs 05/28/23 [Rx Last Taken 07/12/23] isosorbide mononitrate 30 mg tablet,extended release 24 hr 30 mg PO DAILY HEART #30 tabs 05/28/23 [Rx Last Taken 07/12/23] menthol 0.44 %-zinc oxide 20.6 % topical ointment (Calmoseptine) 1 applic topical BID skin irritation #0 grams 06/08/23 [Rx Last Taken 07/12/23] pregabalin 75 mg capsule 75 mg PO BID pain #10 caps 06/08/23 [Rx Last Taken 07/12/23] insulin glargine-yfgn 100 unit/mL (3 mL) subcutaneous pen 25 unit (0.25 mL) subc ut BID diabetes #0 mL 07/15/23 [Rx Last Taken 07/12/23] insulin lispro 100 unit/mL subcutaneous pen (Humalog KwikPen (U-100) Insulin) 15 unit (0.15 mL) subcut TIDAC diabetes #0 mL 07/15/23 [Rx Last Taken 07/12/23] insulin lispro 100 unit/mL subcutaneous pen (Humalog KwikPen (U-100) Insulin) See Protocol subcut ACHS #0 mL 07/15/23 [Rx Last Taken Unknown] Wheelchair #1 ea 07/23/23 [Rx Last Taken Unknown] albuterol sulfate 90 mcg/actuation aerosol inhaler 2 puff inhalation Q4H PRN SOB 07/27/23 [History Last Taken Unknown] docusate sodium 100 mg capsule 100 mg PO TID PRN constipation 07/27/23 [History Last Taken Unknown] hydroxyzine HCl 10 mg tablet 10 mg PO TID 07/27/23 [History Last Taken Unknown] Allergy/AdvReac Type Severity Reaction Status Date / Time allopurinol AdvReac Vomiting Verified 07/27/23 15:06 Influenza Virus Vaccines AdvReac Vomiting Verified 07/27/23 15:06 pneumococcal vaccine AdvReac Vomiting Verified 07/27/23 15:06 Family History Mother Diabetes Heart disease CHF Father Heart disease NV/CAD Myocardial infarction Surgical History H/O lithotripsy History of angioplasty of peripheral vessel (2016) History of angioplasty of peripheral vessel History of ankle surgery History of cardiac catheterization History of coronary artery stent placement (08/2016) History of coronary artery stent placement History of esophagogastroduodenoscopy (EGD) History of left heart catheterization (11/15/17) History of thyroid surgery Hx of lithotripsy Hx of surgery to heart and great vessels, presenting hazards to health Hx of surgical procedure Hx of thyroidectomy Hx of toe surgery Hx of toe surgery PEG (percutaneous endoscopic gastrostomy) status Social History household members: spouse housing: apartment Smoking Status: Never smoker alcohol intake: never substance use type: does not use ROS ROS ED Constitutional Constitutional ED: Denies chills or fever(s) Eyes Eyes: Denies change in vision ENT ENT ED: Denies rhinorrhea Cardiovascular Cardiovascular: Denies chest pain or palpitations Respiratory/Chest Respiratory/Chest: Reports other Details: Patient wears 2 L of oxygen chronically. But he states his breathing is not bothering him now. ; Denies cough or dyspnea Gastrointestinal Gastrointestinal: Reports other Details: Patient denies diarrhea or blood in stools. He does state he needs to move his bowels now though. ; Denies abdominal pain, diarrhea, nausea or vomiting Genitourinary Genitourinary ED: Denies dysuria Musculoskeletal Musculoskeletal: Reports other Details: Patient is complaining of no pains at this time. He denies any injury. He states he slid from his chair but did not hurt himself. Integumentary Reports rash and other Details: Patient's had a lesion on his left foot for 2 years. He states it is doing quite well. He seems wound care. He is about to get released because it is healing well. He also complains of new lesions on the buttock area. Neurologic Neurologic: Denies headache(s) Endocrine Endocrinology: Denies polydipsia or polyuria Hematologic/Lymphatic Hematologic/Lymphatic: Reports other Details: Patient denies bleeding. He states he thinks he might be on a blood thinner but he is not sure what 1 or what it is for. According to his med list he is on Plavix. This is likely for his history of heart disease. Allergic/Immunologic Allergic/Immunologic ED: Denies urticaria EXAM Physical Exam Narrative Exam Narrative: CONSTITUTIONAL: Patient is nontoxic in appearance. The patient looks comfortable. Work of breathing looks normal. HEENT: No notable trauma. Mucous membranes mildly dry. No sinus tenderness. EYES: No conjunctival injection. Right pupil is smaller than the left. Difficult to see reactivity. But then patient tells me he is blind in his left eye. Range of motion is intact. NECK: No meningismus. No JVD. CARDIOVASCULAR: Regular rate. Regular rhythm. No notable murmur. No JVD. Monitor shows normal sinus rhythm with a rate of approximately 65. I am not seeing any ectopy at this time. RESPIRATORY: No respiratory distress. Breathing is unlabored. No wheezes. No rhonchi. No rales. No pain with a deep breath. Saturations are normal at 99% on his 2 L which is his normal oxygen level at home. GASTROINTESTINAL: Not distended. Bowel sounds are normal. No tenderness. No guarding. No rebound. No palpable mass. No bruit. GENITOURINARY: No tenderness over the bladder. No CVA tenderness. I will need to get help to look at his buttock. I have not looked at the sores in this area yet. MUSCULOSKELETAL: No noted peripheral edema. Patient has a boot and a wrapping on his left foot. He tells me that this has been doing quite well and is about to be released. NEUROLOGICAL: Patient is alert and oriented person place time and his recent history. There seems to be a disconnect between what he was sent in for and his current complaints but this might be because he is trying not to go to a nursing facility. I am going to need to get more information when his arrives to help sort this out. SKIN: No noted rashes. No diaphoresis. No vesicles noted. No notable pallor. I am pending assistance to look at the posterior aspect for signs of decubitus ulcer that he supposedly has. PSYCHIATRIC: Patient is calm. Mood is appropriate. Const Vital Signs: 07/27/23 15:07 07/27/23 15:06 07/27/23 15:06 Temperature 98.4 F Temperature Source Oral Pulse Rate 61 Respiratory Rate 14 Respiratory Effort Normal Non-Labored Respiratory Pattern Normal Blood Pressure 117/75 Blood Pressure Mean 89 Pulse Ox 99 Oxygen Delivery Method Nasal Cannula Oxygen Flow Rate (L/min) 2 07/27/23 17:06 07/27/23 16:00 Temperature 98.2 F Temperature Source Temporal Pulse Rate 60 63 Respiratory Rate 16 15 Respiratory Effort Respiratory Pattern Blood Pressure 117/75 141/92 H Blood Pressure Mean 89 108 Pulse Ox 100 99 Oxygen Delivery Method Nasal Cannula Nasal Cannula Oxygen Flow Rate (L/min) 2 2 MDM MDM MDM Narrative Medical decision making narrative: Patient has two quarter size areas of stage II decub on the buttock area that are not infected. Patient CBC shows mild anemia but no other acute process. Electrolytes showed high potassium but he has normal renal function at this time and there was hemolysis. I think this is the likely source of his potassium being mildly elevated. I do not think this needs specific treatment. Glucose is slightly up at 184. Liver function tests are not showing any marked abnormalities. My independent her potation the patient's chest x-ray shows what appears to be hemidiaphragm elevation the right but final reading shows really no interval change. I did discuss with the who was in the room. She states he is just too weak to get up. She cannot carry him. Patient now states that when therapy came he did moving of his arms and legs but did not actually get up and walk. Patient states he will not go to a intermediate. But I did discuss rehab. I explained that a rehab facility looks like a intermediate but its focus is to do short- term rehab to improve strength. He is willing to do this. His also talked to them and stated that [facility] actually was doing very well but he did not like the staff there. I explained that he cannot stay at home and be totally function less independent on others but refuse care. He did agree to come in the hospital. He did agree to seeing physical therapy and going to a rehab facility. Lab Data Attestation: I reviewed the patient's lab results. Labs: Laboratory Results - last 24 hr 07/27/23 07/27/23 16:43 17:00 WBC 10.9 RBC 4.21 L Hgb 11.5 L Hct 37.7 L MCV 89.5 MCH 27.3 MCHC 30.5 L RDW Std Deviation 46.0 H RDW Coeff of James 14.3 Plt Count 236 MPV 11.1 Immature Gran % (Auto) 0.500 Neut % (Auto) 71.6 H Lymph % (Auto) 15.6 L Gray % (Auto) 9.6 Eos % (Auto) 2.0 Baso % (Auto) 0.7 Absolute Neuts (auto) 7.8 H Absolute Lymphs (auto) 1.71 Nucleated RBC % 0 Sodium 141 Potassium 5.8 H Chloride 109 H Carbon Dioxide 29.0 Anion Gap 3 L BUN 16 Creatinine 1.29 Estim Creat Clear Calc 59.73 Est GFR (MDRD) Af Amer 72 Est GFR (MDRD) Non-Af 60 BUN/Creatinine Ratio 12.4 Glucose 184 H Lactic Acid 1.5 Calcium 8.7 Total Bilirubin 0.30 AST 28 ALT 19 Alkaline Phosphatase 132 H Total Protein 7.1 Albumin 2.9 L Globulin 4.2 Albumin/Globulin Ratio 0.7 L Urine Color Yellow Urine Clarity Sl. Cloudy Urine pH 5.0 Ur Specific Spencer 1.020 Urine Protein 30 H Urine Glucose (UA) 1000 H Urine Ketones Negative Urine Occult Blood Negative Urine Nitrite Negative Urine Bilirubin Negative Urine Urobilinogen 1 H Ur Leukocyte Esterase 25 H Urine RBC 0 SEEN Urine WBC 0-5 SEEN Ur Squamous Epith Cells 0-5 SEEN Urine Bacteria 0 SEEN Urine Mucus 0 SEEN Radiography Diagnostic Testing: Clinical Impression(s) from Imaging Studies Chest X-Ray 07/27/23 16:25 IMPRESSION: No interval change. Electronically Signed: Naga Gallardo MD at 16:42 EDT , Management Discussion w/another healthcare provider: Hospitalist Discharge Plan Dx/Rx/DC Orders Clinical Impression: Decubitus ulcer of sacral region, stage 2, Generalized weakness, Inability to walk Disposition Disposition: Acute Care Hospital [facility] Discharge Date/Time: 07/27/23 19:10
--- NOTE | 2023-07-27 16:25 | RAD_ITS ---
EXAM: XR CHEST, 1 VIEW CLINICAL INDICATION: cough TECHNIQUE: Frontal view of the chest. COMPARISON: XR Chest dated 07/14/2023 FINDINGS: LUNGS AND PLEURAL SPACES: Persistent minor atelectatic change involving the right middle and lower lobes. No pneumothorax. No effusion. HEART: Normal heart size. MEDIASTINUM: No mediastinal or hilar mass. BONES/JOINTS: No acute abnormality. UPPER ABDOMEN: Elevation of the right hemidiaphragm again noted. RAD/Chest 1 View (Portable) IMPRESSION: No interval change. Electronically Signed: Naga Gallardo MD at 16:42 EDT ,
--- NOTE | 2023-07-27 16:36 | EKG12_ITS ---
Test Reason : SOB Blood Pressure : / mmHG Vent. Rate : 063 BPM Atrial Rate : 063 BPM P-R Int : 206 ms QRS Dur : 110 ms QT Int : 538 ms P-R-T Axes : 061 -02 025 degrees QTc Int : 550 ms Critical Test Result: Long QTc Poor data quality, interpretation may be adversely affected Sinus rhythm with Premature supraventricular complexes T wave abnormality, consider inferior ischemia Prolonged QT Abnormal ECG No previous ECGs available Confirmed by ARAMIS JOHNS, MAURO ([id number]), videotape editor MAYDA ORTEGA ([id number]) on 09/15/2023 2:03:24 PM Referred By: EDMUND/DENISSE Confirmed By:MAURO SELF MD
[2023-07-27 16:50] LABS: Absolute Lymphocyte Count 1.71 X10^3/uL (0.83-4.51); Absolute Neutrophil Count 7.8 X10^3/uL (2.0-7.7); Basophil# 0.08 X10^3/uL; Basophil% 0.7 % (0-1); Eosinophil# 0.22 X10^3/uL; Hematocrit 37.7 % (40-54); Hemoglobin 11.5 g/dL (13.0-16.5); Lymphocyte # 1.71 X10^3/ul (0.83-4.51); Lymphocyte % 15.6 % (19-41); Mean Corp Hgb Conc 30.5 g/dL (32-36); Mean Corpuscular Hgb 27.3 pg (27.0-32.0); Mean Corpuscular Volume 89.5 fL (80-94); Mean Platelet Vol. 11.1 fl (6.2-12.0); Monocyte# 1.05 X10^3/uL; Monocyte% 9.6 % (0-10); NRBC Flagged by Analyzer 0 % (0-5); Neutrophil # 7.82 X10^3/uL (2.7-7.7); Neutrophil % 71.6 % (47-70); Platelet Count 236 K/mm3 (150-450); RBC Distribution Width CV 14.3 % (11.6-14.6); Red Blood Count 4.21 M/mm3 (4.6-6.2); White Blood Count 10.9 K/mm3 (4.4-11.0)
[2023-07-27 17:05] LABS: Bacteria 0 SEEN /hpf (None Seen); Mucous, Urine 0 SEEN /hpf (<or=2+); Red Blood Cells-Urine 0 SEEN /hpf (0-5)
[2023-07-27 17:10] LABS: Color, Urine Yellow (Yellow); Glucose, Dipstick 1000 mg/dl (Normal); Ketone-Dipstick Negative (Negative); Leukocyte Esterase-Dipstick 25 /ul (Negative); Nitrite-Dipstick Negative (Negative); Occult Blood-Urine Negative /ul (Negative); Protein-Dipstick 30 mg/dl (Negative); Urine Bilirubin Dipstick Negative (Negative); Urine Clarity Sl. Cloudy (Clear); Urine Urobilinogen 1 mg/dl (Normal)
[2023-07-27 17:14] LABS: Lactic Acid 1.5 mmol/L (0.4-1.9)
[2023-07-27 17:17] LABS: ALB/GLOB Ratio 0.7 RATIO (0.9-2.4); AST(SGOT) 28 U/L (15-37); Alanine Aminotransfer ALT/SGPT 19 U/L (16-61); Albumin, Serum 2.9 g/dL (3.2-5.0); Alkaline Phosphatase 132 U/L (45-117); Anion Gap 3 (5-15); BUN 16 mg/dL (7-18); BUN/Creat Ratio 12.4 RATIO (10-20); Calcium,Total 8.7 mg/dL (8.5-10.1); Chloride 109 mmol/L (98-107); Creatinine, Serum 1.29 mg/dL (0.70-1.30); EST Glomerular Filtration Rate 60 mL/min (>60); Est Glom Filt Rate - Afr Amer 72 mL/min (>60); Estimated Creatinine Clearance 59.73 ml/min; Globulin 4.2 g/dL (2.2-4.2); Glucose 184 mg/dL (74-106); Potassium 5.8 mmol/L (3.5-5.1); Protein, Total 7.1 g/dL (6.4-8.2); Sodium Level 141 mmol/L (136-145)
[2023-07-27 17:42] LABS: Squamous Epithelial Cells - UA 0-5 SEEN /hpf (0-5); White Blood Cells 0-5 SEEN /hpf (0-5)
--- NOTE | 2023-07-27 18:41 | HP.PCM.HOS_ITS ---
[facility] - General General Date of Admission: 07/27/23 HPI Narrative REA HANNA, is a 63 M who presents to the hospital with weakness and debility and adult failure to thrive. He is at home after recent admission and was receiving outpatient physical therapy however today he slid out of his chair and was unable to get up by himself or with assistance from his . He has been having frequent issues with weakness and has been calling EMS to help him get up. His last admission was about 12 days ago where he was here for acute hypoxia secondary to pneumonia. He does have a history of chronic hypoxic respiratory failure and is currently being maintained on 2 L nasal cannula at rest and at night. 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 Back pain Back spasm Bilateral leg weakness Blind left eye Blister (nonthermal), left foot, initial encounter Bronchiectasis with (acute) exacerbation Cardiology follow-up encounter Chronic cough Chronic respiratory failure with hypoxia CKD (chronic kidney disease) COPD (chronic obstructive pulmonary disease) CPAP (continuous positive airway pressure) dependence Debility, unspecified Depression Diabetes Essential hypertension Gastric reflux GERD (gastroesophageal reflux disease) High cholesterol History of aspiration pneumonia History of diabetes mellitus History of echocardiogram History of edema History of gout History of heart attack History of non-ST elevation myocardial infarction (NSTEMI) (08/2016) History of pain when walking History of steroid therapy History of stress test Hyperglycemia due to type 2 diabetes mellitus Hypertension Insulin dependent diabetes mellitus Kidney disease Kidney stones Kidney stones Leg pain, right Leukocytosis Low back pain Memory impairment Migraines Mood disorder Myocardial infarct Non-smoker Noncompliance by declining intervention or support On home oxygen therapy Peripheral vascular occlusive disease Pneumonia Prostate disease Pulmonary nodule, left Recurrent falls Right ankle pain Right foot pain Shortness of breath on exertion Silent aspiration Sleep apnea Tremor Type 2 diabetes mellitus Type 2 diabetes mellitus with diabetic polyneuropathy Ulcer of left foot, limited to breakdown of skin 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 Wears glasses Wound of left lower extremity Home Medications acetaminophen 500 mg tablet 1,000 mg PO Q24H PRN PAIN 02/11/21 [History Last Taken 05/24/23] aspirin 81 mg tablet,delayed release (Adult Aspirin Regimen) 81 mg PO DAILY HEART HEALTH 11/05/21 [History Last Taken 07/12/23] peg [id number] 1 %-0.2 %-0.2 % eye drops (Artificial Tears ([id number])) 2 drp EACH EYE Q1H PRN DRY EYES #0 mL 11/14/21 [Rx Last Taken 06/04/23] gauze bandage 4 X 4 (Bordered Gauze) #14 ea 07/03/22 [Rx Last Taken Unknown] walk[place]ra[place] [facility] [place]1 ea 07/21/22 [Rx Last Taken Unknown] pen needle, diabetic 33 gauge x 04/13 #200 ea 12/02/22 [Rx Last Taken Unknown] fluoxetine 20 mg capsule 20 mg PO DAILY ANXIETY 03/23/23 [History Last Taken 07/12/23] melatonin 3 mg tablet 3 mg PO QHS INSOMNIA 03/23/23 [History Last Taken 07/12/23] amlodipine 2.5 mg tablet 2.5 mg PO DAILY BLOOD PRESSURE 05/25/23 [History Last Taken 07/12/23] atorvastatin 80 mg tablet 80 mg PO QHS CHOLESTEROL 05/25/23 [History Last Taken 07/12/23] buspirone 7.5 mg tablet 7.5 mg PO TID ANXIETY 05/25/23 [History Last Taken 07/13/23] carvedilol 12.5 mg tablet 25 mg PO BID HEART 05/25/23 [History Last Taken 07/12/23] finasteride 5 mg tablet 5 mg PO DAILY PROSTATE 05/25/23 [History Last Taken 07/12/23] fluoxetine 40 mg capsule 40 mg PO DAILY ANXIETY 05/25/23 [History Last Taken 07/12/23] furosemide 40 mg tablet 40 mg PO DAILY FLUID 05/25/23 [History Last Taken 07/12/23] hydroxyzine HCl 25 mg tablet 25 mg PO QHS PRN ANXIETY 05/25/23 [History Last Ta neo 06/04/23] losartan 50 mg tablet 50 mg PO DAILY BLOOD PRESSURE 05/25/23 [History Last Taken 07/12/23] pantoprazole 40 mg tablet,delayed release 40 mg PO DAILY ACID REFLUX 05/25/23 [History Last Taken 07/13/23] trazodone 150 mg tablet 150 mg PO QHS INSOMNIA 05/25/23 [History Last Taken 07/12/23] clopidogrel 75 mg tablet 75 mg PO DAILY BLOOD THINNER #30 tabs 05/28/23 [Rx Last Taken 07/12/23] isosorbide mononitrate 30 mg tablet,extended release 24 hr 30 mg PO DAILY HEART #30 tabs 05/28/23 [Rx Last Taken 07/12/23] menthol 0.44 %-zinc oxide 20.6 % topical ointment (Calmoseptine) 1 applic topical BID skin irritation #0 grams 06/08/23 [Rx Last Taken 07/12/23] pregabalin 75 mg capsule 75 mg PO BID pain #10 caps 06/08/23 [Rx Last Taken 07/12/23] insulin glargine-yfgn 100 unit/mL (3 mL) subcutaneous pen 25 unit (0.25 mL) subcut BID diabetes #0 mL 07/15/23 [Rx Last Taken 07/12/23] insulin lispro 100 unit/mL subcutaneous pen (Humalog KwikPen (U-100) Insulin) 15 unit (0.15 mL) subcut TIDAC diabetes #0 mL 07/15/23 [Rx Last Taken 07/12/23] insulin lispro 100 unit/mL subcutaneous pen (Humalog KwikPen (U-100) Insulin) See Protocol subcut ACHS #0 mL 07/15/23 [Rx Last Taken Unknown] Wheelchair #1 ea 07/23/23 [Rx Last Taken Unknown] albuterol sulfate 90 mcg/actuation aerosol inhaler 2 puff inhalation Q4H PRN SOB 07/27/23 [History Last Taken Unknown] docusate sodium 100 mg capsule 100 mg PO TID PRN constipation 07/27/23 [History Last Taken Unknown] hydroxyzine HCl 10 mg tablet 10 mg PO TID 07/27/23 [History Last Taken Unknown] Allergy/AdvReac Type Severity Reaction Status Date / Time allopurinol AdvReac Vomiting Verified 07/27/23 15:06 Influenza Virus Vaccines AdvReac Vomiting Verified 07/27/23 15:06 pneumococcal vaccine AdvReac Vomiting Verified 07/27/23 15:06 Family History Mother Diabetes Heart disease CHF Father Heart disease [place]/CAD Myocardial infarction Surgical History H/O lithotripsy History of angioplasty of peripheral vessel (2016) History of angioplasty of peripheral vessel History of ankle surgery History of cardiac catheterization History of coronary artery stent placement (08/2016) History of coronary artery stent placement History of esophagogastroduodenoscopy (EGD) History of left heart catheterization (11/15/17) History of thyroid surgery Hx of lithotripsy Hx of surgery to heart and great vessels, presenting hazards to health Hx of surgical procedure Hx of thyroidectomy Hx of toe surgery Hx of toe surgery PEG (percutaneous endoscopic gastrostomy) status Social History household members: spouse housing: apartment Smoking Status: Never smoker alcohol intake: never substance use type: does not use ROS Constitutional Constitutional: Reports weakness; Denies chills, fatigue, fever(s) or malaise Eyes Eyes: Denies blurry vision ENT HEENT: Denies headache(s) or nasal discharge Cardiovascular Cardiovascular: Denies chest pain, dyspnea on exertion or syncope Respiratory/Chest Respiratory/Chest: Denies cough, shortness of breath at rest or shortness of breath with exertion Gastrointestinal Gastrointestinal: Denies constipation, diarrhea, nausea or vomiting Genitourinary Genitourinary: Denies dysuria Neurologic Neurologic: Denies focal weakness, numbness or tremor(s) Psychiatric Psychiatric: Denies anxiety or depression Vital Signs Vital Signs Vital Signs: 07/27/23 15:07 07/27/23 15:06 07/27/23 15:06 Temperature 98.4 F Temperature Source Oral Pulse Rate 61 Respiratory Rate 14 Respiratory Effort Normal Non-Labored Respiratory Pattern Normal Blood Pressure 117/75 Blood Pressure Mean 89 Pulse Ox 99 Oxygen Delivery Method Nasal Cannula Oxygen Flow Rate (L/min) 2 07/27/23 17:06 Temperature Temperature Source Pulse Rate 60 Respiratory Rate 16 Respiratory Effort Respiratory Pattern Blood Pressure 117/75 Blood Pressure Mean 89 Pulse Ox 100 Oxygen Delivery Method Nasal Cannula Oxygen Flow Rate (L/min) 2 Weight Weight: 280 lb 13.903 oz Body Mass Index (BMI) 40.3 Physical Exam Narrative General: Alert, Oriented x3, Cooperative, No apparent distress HEENT: Atraumatic, PERRLA, EOMI, Normocephalic Oral: Dry mucosa Neck: Supple, No JVD Lungs: Diminished, Normal air movement, No rhonchi, No wheeze, No rales Cardiovascular: Regular rate, Regular Rhythm, Normal S1, Normal S2, No murmurs Abdomen: Soft, Non Tender, Non-Distended, No Hepato-splenomegaly Extremities: No edema, Capillary Refill Less than 3 Seconds Skin: Known left foot ulceration, currently dressed left foot is in a boot Musculoskeletal: No Tenderness to Palpation of Joints or Extremities Neurological: Cranial nerves II-XII grossly intact, Motor Exam 5/5 strength throughout, Sensory exam intact to light touch and pain Psych/Mental Status: Normal Affect, Appropriate Results Lab / Micro Data 07/27/23 16:43 07/27/23 16:43 Labs: Laboratory Results - last 24 hr 07/27/23 16:43: WBC 10.9, RBC 4.21 L, Hgb 11.5 L, Hct 37.7 L, MCV 89.5, MCH 27.3, MCHC 30.5 L, RDW Std Deviation 46.0 H, RDW Coeff of James 14.3, Plt Count 236, MPV 11.1, Immature Gran % (Auto) 0.500, Neut % (Auto) 71.6 H, Lymph % (Auto) 15.6 L, [place] % (Auto) 9.6, Eos % (Auto) 2.0, Baso % (Auto) 0.7, Absolute Neuts (auto) 7.8 H, Absolute Lymphs (auto) 1.71, Nucleated RBC % 0, Sodium 141, Potassium 5.8 H, Chloride 109 H, Carbon Dioxide 29.0, Anion Gap 3 L, BUN 16, Creatinine 1.29, Estim Creat Clear Calc 59.73, Est GFR (MDRD) Af Amer 72, Est GFR (MDRD) Non-Af 60, BUN/Creatinine Ratio 12.4, Glucose 184 H, Lactic Acid 1.5, Calcium 8.7, Total Bilirubin 0.30, AST 28, ALT 19, Alkaline Phosphatase 132 H, Total Protein 7.1, Albumin 2.9 L, Globulin 4.2, Albumin/Globulin Ratio 0.7 L 07/27/23 17:00: Urine Color Yellow, Urine Clarity Sl. Cloudy, Urine pH 5.0, Ur Specific [place] 1.020, Urine Protein 30 H, Urine Glucose (UA) 1000 H, Urine Ketones Negative, Urine Occult Blood Negative, Urine Nitrite Negative, Urine Bilirubin Negative, Urine Urobilinogen 1 H, Ur Leukocyte Esterase 25 H, Urine RBC 0 SEEN, Urine WBC 0-5 SEEN, Ur Squamous Epith Cells 0-5 SEEN, Urine Bacteria 0 SEEN, Urine Mucus 0 SEEN Radiology Impression Chest X-Ray 07/27/23 16:25 IMPRESSION: No interval change. Electronically Signed: Naga Gallardo MD at 16:42 EDT , Assessment & Plan Assessment/Plan (1) Declining functional status: PLAN: Plan 1. Failure to thrive with increasing weakness and inability to complete ADLs/chronic respiratory failure ? Continue with his baseline oxygen of 2 L ? He is refusing to go to SNF other than TCU or our inpatient rehab unit ? PT/OT 2. Chronic diastolic CHF/CAD/peripheral artery disease status post stent HTN/HLD ? Blood pressure stable, will monitor and make adjustments ? Resume his home medications 3. DM2/diabetic foot ulcer left heel ? Blood sugars a little bit elevated at 184, can continue with his home insulin regimen ? Accu-Cheks AC at bedtime ? Sliding scale insulin, will monitor and make adjustments as necessary ? We will consult wound care to monitor his left heel wound 4. GERD ? Stable ? Continue with PPI DVT: Heparin 76 minutes was spent on direct patient care, including documentation as well as chart review and collaboration with colleagues Charges/Coding Visit Charges Inpatient E&M: 03130 Init Hosp L3
--- NOTE | 2023-07-27 18:48 | CM.ED ---
Social Work Case Management SW Face to Face with patient for initial transition planning/care coordination assessment. SW introduced self and role at [facility]. Patient lying in bed, alert and oriented. Patient willing to participate in assessment and is able to answer questions and partner, Doris, present to assist with answers.? Care providers, pharmacy, and demographics verified. 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 SW to follow for discharge planning needs that may arise. PCP: Kevin Specialists:Yannick, Friend [facility]erred [facility] [place] [facility] Prescription Benefit:?Yes Living Will/HPOA:Yes, Doris HCPOA LNOK: Doris is HCPOA, . Living Arrangements: Apt, no stairs with partner and her son Transportation: Patient's drives DME/HHC: 2 liters of home O2, has BSC, rollator, glucometer, pulse ox, power scooter and as of recently patient is working with CM to get wheelchair, lift chair and rails/grab bars. Patient has previously been to [facility] as well as received [facility]. Patient is currently active with [facility] and has a CM Gigi, an aide and home delivered meals. Patient is also active with [facility] and states he has only had one session. SW spoke to patient about SNF options. Patient reports no interest in SNF but was receptive towards TCU or rehab as it is located in [facility]. SW discussed referral process and explained patient will likely not be accepted to rehab and no guarantee for TCU as it will depend on bed availability as well as approval from patient's insurance. Patient voiced understanding and reports some interest in [facility] as second option if TCU cannot accept. SW contacted TCU admissions staff Tuyet; Tuyet reports available TCU beds and plans to review patient in the morning. SW to continue to follow along for d/c plan. SW updated MD Mathew via backline of TCU referral. Disposition Plan: referral for TCU, [facility] second SNF choice. Lolis Dhaliwal PANTRY WORKER, BRUN[place]
[2023-07-27] MEDS: Pregabalin 75 MG Capsule PO (22:18)
[2023-07-27] MEDS: Carvedilol 25 MG Tablet PO (22:18)
[2023-07-27] MEDS: traZODone 50 MG Tablet 150 MG PO (22:18)
[2023-07-27] MEDS: busPIRone 5 MG Tablet 7.5 MG PO (22:18)
[2023-07-27] MEDS: hydrOXYzine 10 MG Tablet PO (22:19)
[2023-07-27] MEDS: Heparin Injection (Vial) 5,000 UNIT/ML VIAL 5000 UNIT SC (22:19)
[2023-07-27] MEDS: Atorvastatin Calcium 80 MG Tablet PO (22:20)
[2023-07-27] MEDS: MELATONIN 3 MG TABLET PO (22:20)
[2023-07-27] MEDS: Insulin Lispro 100 UNIT/ML INSULN.PEN SC (22:23)
[2023-07-27] MEDS: Insulin Glargine-YFGN 100 UNIT/ML Pen 25 UNIT SC (22:23)
[2023-07-27 22:44] LABS: Bedside Glucose 209 mg/dL (74-106)
[2023-07-28 03:31] VITALS: BP 140/67; PULSE 54; RESP 16; TEMP 36.7; O2SAT 98
[2023-07-28] MEDS: Menthol/Lanolin/Calamine/Znox 113 GM Tube 1 APPLIC TOPICAL ×3 (06:09→23:44)
[2023-07-28] MEDS: Nystatin Powder 15gm Bottle 1 APPLIC TOPICAL ×3 (06:10→23:45)
[2023-07-28] MEDS: Heparin Injection (Vial) 5,000 UNIT/ML VIAL 5000 UNIT SC ×3 (06:11→23:46)
[2023-07-28] MEDS: hydrOXYzine 10 MG Tablet PO ×3 (06:11→23:44)
[2023-07-28] MEDS: busPIRone 5 MG Tablet 7.5 MG PO ×3 (06:11→23:43)
[2023-07-28 06:34] LABS: Absolute Lymphocyte Count 2.47 X10^3/uL (0.83-4.51); Absolute Neutrophil Count 4.2 X10^3/uL (2.0-7.7); Basophil# 0.09 X10^3/uL; Basophil% 1.1 % (0-1); Eosinophil# 0.22 X10^3/uL; Eosinophils% 2.8 % (0-5); Hematocrit 34.9 % (40-54); Hemoglobin 10.8 g/dL (13.0-16.5); Lymphocyte # 2.47 X10^3/ul (0.83-4.51); Lymphocyte % 31.2 % (19-41); Mean Corp Hgb Conc 30.9 g/dL (32-36); Mean Corpuscular Hgb 27.3 pg (27.0-32.0); Mean Corpuscular Volume 88.4 fL (80-94); Mean Platelet Vol. 10.7 fl (6.2-12.0); Monocyte# 0.92 X10^3/uL; Monocyte% 11.6 % (0-10); NRBC Flagged by Analyzer 0 % (0-5); Neutrophil # 4.18 X10^3/uL (2.7-7.7); Neutrophil % 52.8 % (47-70); Platelet Count 221 K/mm3 (150-450); RBC Distribution Width CV 14.2 % (11.6-14.6); RBC Distribution Width SD 45.8 fl (35.1-43.9); Red Blood Count 3.95 M/mm3 (4.6-6.2); White Blood Count 7.9 K/mm3 (4.4-11.0)
[2023-07-28 06:41] LABS: Bedside Glucose 131 mg/dL (74-106)
[2023-07-28 07:01] LABS: Anion Gap 2 (5-15); BUN 12 mg/dL (7-18); BUN/Creat Ratio 10.9 RATIO (10-20); Calcium,Total 8.9 mg/dL (8.5-10.1); Chloride 108 mmol/L (98-107); EST Glomerular Filtration Rate 72 mL/min (>60); Est Glom Filt Rate - Afr Amer 87 mL/min (>60); Estimated Creatinine Clearance 70.05 ml/min; Glucose 134 mg/dL (74-106); Potassium 3.9 mmol/L (3.5-5.1); Sodium Level 141 mmol/L (136-145)
[2023-07-28 08:54] VITALS: O2SAT 99
[2023-07-28 08:59] VITALS: BP 159/81; PULSE 104; RESP 19; TEMP 36.4; O2SAT 100
[2023-07-28] MEDS: Clopidogrel Bisulfate 75 MG Tablet PO (09:07)
[2023-07-28] MEDS: Aspirin E.C. 81 MG Tablet PO (09:07)
[2023-07-28] MEDS: Isosorbide Mononitrate 30 MG Tablet PO (09:07)
[2023-07-28] MEDS: Losartan Potassium 50 MG Tablet PO (09:07)
[2023-07-28] MEDS: Furosemide 40 MG Tablet PO (09:07)
[2023-07-28] MEDS: Finasteride 5 MG Tablet PO (09:08)
[2023-07-28] MEDS: amLODIPine 2.5 MG Tablet PO (09:08)
[2023-07-28] MEDS: Pantoprazole Sodium 40 MG Tablet PO (09:08)
[2023-07-28] MEDS: Carvedilol 25 MG Tablet PO ×2 (09:09→23:44)
[2023-07-28] MEDS: Pregabalin 75 MG Capsule PO ×2 (10:46→23:51)
[2023-07-28] MEDS: Insulin Glargine-YFGN 100 UNIT/ML Pen 25 UNIT SC ×2 (10:46→23:59)
[2023-07-28] MEDS: Fluoxetine HCl 40 MG CAPSULE PO (11:09)
[2023-07-28] MEDS: FLUoxetine 20 MG Capsule PO (11:09)
[2023-07-28 11:31] LABS: Bedside Glucose 223 mg/dL (74-106)
[2023-07-28] MEDS: Insulin Lispro 100 UNIT/ML INSULN.PEN SC ×2 (12:18→23:58)
[2023-07-28] MEDS: Insulin Lispro 100 UNIT/ML INSULN.PEN 15 UNIT SC (12:18)
--- NOTE | 2023-07-28 13:16 | PN_ITS ---
Subjective Subjective Patient seen and examined. He had no active complaints. He felt weak but had no other complaints. Review of systems is otherwise negative. He is open to placement in rehab facility. Objective Data Objective Data Vital Signs: Vital Signs Temp Pulse Resp BP Pulse Ox O2 Del Method O2 Flow Rate 97.5 F L 104 H 19 H 159/81 H 100 Nasal Cannula 2 07/28/23 08:59 07/28/23 08:59 07/28/23 08:59 07/28/23 08:59 07/28/23 08:59 07/28/23 08:59 07/28/23 12:06 Oxygen Flow Rate (L/min) 2 Oxygen Delivery Method Nasal Cannula Weight: 272 lb 4.334 oz Body Mass Index (BMI) 39.0 Intake & Output: Intake and Output for Last 24 Hours 07/26/23 07/27/23 07/28/23 23:59 23:59 23:59 Intake Total 220 / 220 460 / 460 Output Total 300 / 300 850 / 850 Balance -80 / -80 -390 / -390 Lab / Micro Data 07/28/23 05:55 07/28/23 05:55 Labs: Laboratory Results - last 24 hr 07/27/23 16:43: WBC 10.9, RBC 4.21 L, Hgb 11.5 L, Hct 37.7 L, MCV 89.5, MCH 27.3, MCHC 30.5 L, RDW Std Deviation 46.0 H, RDW Coeff of James 14.3, Plt Count 236, MPV 11.1, Immature Gran % (Auto) 0.500, Neut % (Auto) 71.6 H, Lymph % (Auto) 15.6 L, [place] % (Auto) 9.6, Eos % (Auto) 2.0, Baso % (Auto) 0.7, Absolute Neuts (auto) 7.8 H, Absolute Lymphs (auto) 1.71, Nucleated RBC % 0, Sodium 141, Potassium 5.8 H, Chloride 109 H, Carbon Dioxide 29.0, Anion Gap 3 L, BUN 16, Creatinine 1.29, Estim Creat Clear Calc 59.73, Est GFR (MDRD) Af Amer 72, Est GFR (MDRD) Non-Af 60, BUN/Creatinine Ratio 12.4, Glucose 184 H, Lactic Acid 1.5, Calcium 8.7, Total Bilirubin 0.30, AST 28, ALT 19, Alkaline Phosphatase 132 H, Total Protein 7.1, Albumin 2.9 L, Globulin 4.2, Albumin/Globulin Ratio 0.7 L 07/27/23 17:00: Urine Color Yellow, Urine Clarity Sl. Cloudy, Urine pH 5.0, Ur Specific [place] 1.020, Urine Protein 30 H, Urine Glucose (UA) 1000 H, Urine Ketones Negative, Urine Occult Blood Negative, Urine Nitrite Negative, Urine Bilirubin Negative, Urine Urobilinogen 1 H, Ur Leukocyte Esterase 25 H, Urine RBC 0 SEEN, Urine WBC 0-5 SEEN, Ur Squamous Epith Cells 0-5 SEEN, Urine Bacteria 0 SEEN, Urine Mucus 0 SEEN 07/27/23 22:22: POC Glucose 209 H 07/28/23 05:55: WBC 7.9, RBC 3.95 L, Hgb 10.8 L, Hct 34.9 L, MCV 88.4, MCH 27.3, MCHC 30.9 L, RDW Std Deviation 45.8 H, RDW Coeff of James 14.2, Plt Count 221, MPV 10.7, Immature Gran % (Auto) 0.500, Neut % (Auto) 52.8, Lymph % (Auto) 31.2, [place] % (Auto) 11.6 H, Eos % (Auto) 2.8, Baso % (Auto) 1.1 H, Absolute Neuts (auto) 4.2, Absolute Lymphs (auto) 2.47, Nucleated RBC % 0, Sodium 141, Potassium 3.9, Chloride 108 H, Carbon Dioxide 31.0, Anion Gap 2 L, BUN 12, Creatinine 1.10, Estim Creat Clear Calc 70.05, Est GFR (MDRD) Af Amer 87, Est GFR (MDRD) Non-Af 72, BUN/Creatinine Ratio 10.9, Glucose 134 H, Calcium 8.9 07/28/23 06:22: POC Glucose 131 H 07/28/23 11:12: POC Glucose 223 H Radiography Diagnostic Testing: Radiology Impression Chest X-Ray 07/27/23 16:25 IMPRESSION: No interval change. Electronically Signed: Naga Gallardo MD at 16:42 EDT , Physical Exam Const no apparent distress Orientation / Consciousness: lethargic HEENT normocephalic, head/scalp atraumatic, moist oral mucous membranes and oropharynx normal Eyes PERRL and EOMs intact bilaterally Neck no lymphadenopathy, supple and no JVD Lymph Lymphatic: no lymphadenopathy noted Resp Resp Narrative: mildly diminished breath sounds bibasally, no wheezes or crackles. On 2L of oxygen Cardio regular rate, regular rhythm, S1 normal heart sound, S2 normal heart sound and no murmurs GI normal to inspection, nondistended, normoactive bowel sounds, soft to palpation, non-tender and non-distended Extremity normal capillary refill, no clubbing, cyanosis or edema and no calf tenderness Skin General Skin Exam: no breakdown and turgor normal Neuro CN's II-XII intact bilaterally, no focal motor deficits, no sensory deficits noted and deep tendon reflexes 2+ bilaterally Motor Exam: strength 5/5 throughout Psych thought process normal and cooperative Assessment & Plan Assessment/Plan (1) Inability to walk: (2) Generalized weakness: PLAN: Plan #Debility and failure to thrive * unable to take care of himself at home and has gradually gotten weaker * PT.OT on board * fall precautions * amenable to placement * #Chronic respiratory failure due to CHF and CAD * on baseline 2L of oxygen * breathing treatment with bronchodilators * titrate oxygen to maintain sats >90% * #Type 2 diabetes mellitus * on lantus * ISS. Accuchecks ACHS * #Left foot hell ulcer * due to diabetes mellitus * wound care on board. * #GERD: on PPI DVT prophylaxis: heparin Disposition: awaiting placement. Open to going to TCU. Charges/Coding Visit Charges Inpatient E&M: 99870 Subs Hosp L2
--- NOTE | 2023-07-28 14:47 | CHAPLAIN ---
Type of Pastoral Visit _x__ Initial Visit ___ Follow-up Visit ___ On-call Visit ___ General Patient Visit ___ Spiritual Assessment ___ Family Conference ___ Bereavement ___ Rapid Response ___ Code Blue ___ Other (describe below) Pastoral Care Referral From _x__ Patient ___ Family ___ Nurse ___ Physician ___ [place] ___ Fur Trimmer ___ Other (describe below) Sacrament/Intervention _x__ Active listening ___ Anointing ___ Taoist ___ Bereavement ___ Communion ___ Sarai exploration ___ _x__ Life review _x__ Prayer ___ Reconciliation ___ Sacrament of Sick _x__ Supportive presence ___ Wedding ___ Other (describe below) Pastoral Comments review of current status, health, and ; pt wants to move soon and be better with leg strength; pt expresses thankfulness fr his ; prayer given
--- NOTE | 2023-07-28 15:00 | CASEMGMT ---
Patient expressed interest in [facility] TCU to the ED SW. A referral was made to TCU. TCU can take patient at discharge. SW notified patient that TCU can take him pending insurance approval. Plan: d/c to [facility] TCU pending insurance approval. Loan CARR
[2023-07-28 15:17] VITALS: BP 124/80; PULSE 66; RESP 18; TEMP 36.8; O2SAT 99
--- NOTE | 2023-07-28 16:14 | CASEMGMT ---
Met with patient to complete GOMEZ form. GOMEZ form explained to patient and his who voiced understanding and signed form. Original form placed in pt?s chart and copy provided to patient. Nuria Singh, Discharge Planning Asst. ?
[2023-07-28 17:22] LABS: Bedside Glucose 78 mg/dL (74-106)
[2023-07-28 22:30] VITALS: BP 150/92; PULSE 60; RESP 20; TEMP 36.7; O2SAT 97
[2023-07-28] MEDS: Atorvastatin Calcium 80 MG Tablet PO (23:44)
[2023-07-28] MEDS: MELATONIN 3 MG TABLET PO (23:44)
[2023-07-28] MEDS: traZODone 50 MG Tablet 150 MG PO (23:44)
[2023-07-28] MEDS: 0.9% Saline Lock 10 ML Syringe IV (23:45)
[2023-07-29 00:34] LABS: Bedside Glucose 186 mg/dL (74-106)
[2023-07-29 05:01] VITALS: BP 169/93; PULSE 60; RESP 18; TEMP 36.6; O2SAT 97
[2023-07-29] MEDS: Carvedilol 25 MG Tablet PO ×2 (05:18→20:49)
[2023-07-29] MEDS: hydrOXYzine 10 MG Tablet PO ×3 (05:18→20:48)
[2023-07-29] MEDS: busPIRone 5 MG Tablet 7.5 MG PO ×3 (05:19→20:47)
[2023-07-29] MEDS: Menthol/Lanolin/Calamine/Znox 113 GM Tube 1 APPLIC TOPICAL ×3 (05:20→20:46)
[2023-07-29] MEDS: Heparin Injection (Vial) 5,000 UNIT/ML VIAL 5000 UNIT SC ×2 (05:20→20:49)
[2023-07-29] MEDS: Nystatin Powder 15gm Bottle 1 APPLIC TOPICAL ×3 (05:21→20:46)
[2023-07-29 05:47] LABS: Absolute Lymphocyte Count 2.18 X10^3/uL (0.83-4.51); Absolute Neutrophil Count 4.4 X10^3/uL (2.0-7.7); Basophil# 0.06 X10^3/uL; Basophil% 0.8 % (0-1); Eosinophil# 0.21 X10^3/uL; Eosinophils% 2.7 % (0-5); Hematocrit 38.2 % (40-54); Hemoglobin 12.1 g/dL (13.0-16.5); Lymphocyte # 2.18 X10^3/ul (0.83-4.51); Lymphocyte % 27.9 % (19-41); Mean Corp Hgb Conc 31.7 g/dL (32-36); Mean Corpuscular Hgb 27.8 pg (27.0-32.0); Mean Corpuscular Volume 87.6 fL (80-94); Mean Platelet Vol. 10.3 fl (6.2-12.0); Monocyte# 0.91 X10^3/uL; Monocyte% 11.7 % (0-10); NRBC Flagged by Analyzer 0 % (0-5); Neutrophil # 4.42 X10^3/uL (2.7-7.7); Neutrophil % 56.5 % (47-70); Platelet Count 212 K/mm3 (150-450); RBC Distribution Width SD 44.9 fl (35.1-43.9); Red Blood Count 4.36 M/mm3 (4.6-6.2); White Blood Count 7.8 K/mm3 (4.4-11.0)
[2023-07-29 06:37] LABS: Anion Gap 2 (5-15); BUN 14 mg/dL (7-18); BUN/Creat Ratio 10.5 RATIO (10-20); Calcium,Total 9.1 mg/dL (8.5-10.1); Chloride 104 mmol/L (98-107); Creatinine, Serum 1.33 mg/dL (0.70-1.30); EST Glomerular Filtration Rate 58 mL/min (>60); Est Glom Filt Rate - Afr Amer 70 mL/min (>60); Estimated Creatinine Clearance 57.94 ml/min; Glucose 121 mg/dL (74-106); Potassium 4.1 mmol/L (3.5-5.1); Sodium Level 140 mmol/L (136-145)
[2023-07-29 07:38] VITALS: O2SAT 97
[2023-07-29 08:17] LABS: Bedside Glucose 120 mg/dL (74-106)
--- NOTE | 2023-07-29 09:02 | PN.HOSP_ITS ---
Reason for Visit Reason for Visit: Diagnoses Difficulty in walking, not elsewhere classified (07/27/23) Weakness (07/27/23) Other malaise (07/27/23) Subjective Subjective Feeling weak. Objective Data Objective Data Vital Signs: Vital Signs Temp Pulse Resp BP Pulse Ox O2 Del Method O2 Flow Rate 36.6 C 60 18 169/93 H 97 Nasal Cannula 2 07/29/23 05:01 07/29/23 05:01 07/29/23 05:01 07/29/23 05:01 07/29/23 05:01 07/29/23 08:05 07/29/23 08:05 Oxygen Flow Rate (L/min) 2 Oxygen Delivery Method Nasal Cannula Weight: 123.5 kg Body Mass Index (BMI) 39.0 Intake & Output: Intake and Output for Last 24 Hours 07/27/23 07/28/23 07/29/23 23:59 23:59 23:59 Intake Total 220 / 220 1040 / 1040 Output Total 300 / 300 1700 / 2300 1050 / 1050 Balance -80 / -80 -660 / -1260 -1050 / -1050 Lab / Micro Data 07/29/23 05:31 07/29/23 05:31 Labs: Laboratory Results - last 24 hr 07/28/23 11:12: POC Glucose 223 H 07/28/23 17:03: POC Glucose 78 07/28/23 23:57: POC Glucose 186 H 07/29/23 05:31: WBC 7.8, RBC 4.36 L, Hgb 12.1 L, Hct 38.2 L, MCV 87.6, MCH 27.8, MCHC 31.7 L, RDW Std Deviation 44.9 H, RDW Coeff of James 14.0, Plt Count 212, MPV 10.3, Immature Gran % (Auto) 0.400, Neut % (Auto) 56.5, Lymph % (Auto) 27.9, [place] % (Auto) 11.7 H, Eos % (Auto) 2.7, Baso % (Auto) 0.8, Absolute Neuts (auto) 4.4, Absolute Lymphs (auto) 2.18, Nucleated RBC % 0, Sodium 140, Potassium 4.1, Chloride 104, Carbon Dioxide 34.0 H, Anion Gap 2 L, BUN 14, Creatinine 1.33 H, Estim Creat Clear Calc 57.94, Est GFR (MDRD) Af Amer 70, Est GFR (MDRD) Non-Af 58 L, BUN/Creatinine Ratio 10.5, Glucose 121 H, Calcium 9.1 07/29/23 07:57: POC Glucose 120 H Physical Exam Const alert and no apparent distress HEENT head/scalp atraumatic and moist oral mucous membranes Resp normal respiratory effort, no retractions, no use of accessory muscles and clear to auscultation bilaterally Cardio regular rate, regular rhythm, S1 normal heart sound and S2 normal heart sound GI normal to inspection, nondistended, normoactive bowel sounds Assessment & Plan Assessment/Plan (1) Generalized weakness: PLAN: Debility and failure to thrive unable to take care of himself at home and has gradually gotten weaker PT OT eval and treat amenable to placement PLAN: Plan Chronic conditions: * Chronic respiratory failure due to CHF and CAD. on baseline 2L of oxygen.breathing treatment with bronchodilators. titrate oxygen to maintain sats >90% * Type 2 diabetes mellitus. on lantus.ISS. Accuchecks ACHS * Left foot hell ulcer. due to diabetes mellitus. wound care on board. * GERD: on PPI * HTN: amlodipine, caredilol * COPD * CAD: continue clopidogrel. DVT prophylaxis: heparin Disposition: plan for SNF. Charges/Coding Visit Charges Inpatient E&M: 32944 Subs Hosp L2
[2023-07-29 09:30] VITALS: BP 132/84; PULSE 57; RESP 18; TEMP 36.4; O2SAT 99
[2023-07-29] MEDS: Aspirin E.C. 81 MG Tablet PO (09:36)
[2023-07-29] MEDS: Pantoprazole Sodium 40 MG Tablet PO (09:36)
[2023-07-29] MEDS: Pregabalin 75 MG Capsule PO ×2 (09:36→20:48)
[2023-07-29] MEDS: Isosorbide Mononitrate 30 MG Tablet PO (09:37)
[2023-07-29] MEDS: Losartan Potassium 50 MG Tablet PO (09:37)
[2023-07-29] MEDS: Furosemide 40 MG Tablet PO (09:37)
[2023-07-29] MEDS: amLODIPine 2.5 MG Tablet PO (09:37)
[2023-07-29] MEDS: Fluoxetine HCl 40 MG CAPSULE PO (09:37)
[2023-07-29] MEDS: FLUoxetine 20 MG Capsule PO (09:37)
[2023-07-29] MEDS: Finasteride 5 MG Tablet PO (09:38)
[2023-07-29] MEDS: Insulin Glargine-YFGN 100 UNIT/ML Pen 25 UNIT SC ×2 (09:38→20:50)
[2023-07-29] MEDS: Clopidogrel Bisulfate 75 MG Tablet PO (09:38)
[2023-07-29 11:29] LABS: Bedside Glucose 174 mg/dL (74-106)
--- NOTE | 2023-07-29 12:14 | WOUNDNOTE ---
wound photo: left plantar heel
--- NOTE | 2023-07-29 12:15 | WOUNDNOTE ---
wound photo: bilateral buttocks
[2023-07-29] MEDS: Insulin Lispro 100 UNIT/ML INSULN.PEN SC ×3 (13:26→20:52)
--- NOTE | 2023-07-29 14:52 | PCM.PN.HOSP ---
Reason for Visit Reason for Visit: Diagnoses Difficulty in walking, not elsewhere classified (07/27/23) Weakness (07/27/23) Other malaise (07/27/23) Subjective Subjective Doesn't want to go to intermediate. Objective Data Objective Data Vital Signs: Vital Signs Temp Pulse Resp BP Pulse Ox O2 Del Method O2 Flow Rate 36.4 C L 57 L 18 132/84 H 99 Nasal Cannula 2 07/29/23 09:30 07/29/23 09:30 07/29/23 09:30 07/29/23 09:30 07/29/23 09:30 07/29/23 14:20 07/29/23 14:20 Oxygen Flow Rate (L/min) 2 Oxygen Delivery Method Nasal Cannula Weight: 123.5 kg Body Mass Index (BMI) 39.0 Intake & Output: Intake and Output for Last 24 Hours 07/27/23 07/28/23 07/29/23 23:59 23:59 23:59 Intake Total 220 / 220 1040 / 1040 820 / 820 Output Total 300 / 300 1700 / 2300 1400 / 1400 Balance -80 / -80 -660 / -1260 -580 / -580 Lab / Micro Data 07/29/23 05:31 07/29/23 05:31 Labs: Laboratory Results - last 24 hr 07/28/23 17:03: POC Glucose 78 07/28/23 23:57: POC Glucose 186 H 07/29/23 05:31: WBC 7.8, RBC 4.36 L, Hgb 12.1 L, Hct 38.2 L, MCV 87.6, MCH 27.8, MCHC 31.7 L, RDW Std Deviation 44.9 H, RDW Coeff of James 14.0, Plt Count 212, MPV 10.3, Immature Gran % (Auto) 0.400, Neut % (Auto) 56.5, Lymph % (Auto) 27.9, Lagrange % (Auto) 11.7 H, Eos % (Auto) 2.7, Baso % (Auto) 0.8, Absolute Neuts (auto) 4.4, Absolute Lymphs (auto) 2.18, Nucleated RBC % 0, Sodium 140, Potassium 4.1, Chloride 104, Carbon Dioxide 34.0 H, Anion Gap 2 L, BUN 14, Creatinine 1.33 H, Estim Creat Clear Calc 57.94, Est GFR (MDRD) Af Amer 70, Est GFR (MDRD) Non-Af 58 L, BUN/Creatinine Ratio 10.5, Glucose 121 H, Calcium 9.1 07/29/23 07:57: POC Glucose 120 H 07/29/23 11:11: POC Glucose 174 H Physical Exam Const alert and no apparent distress HEENT head/scalp atraumatic and moist oral mucous membranes Resp normal respiratory effort, no retractions, no use of accessory muscles and clear to auscultation bilaterally Cardio regular rate, regular rhythm, S1 normal heart sound and S2 normal heart sound GI normal to inspection, nondistended, normoactive bowel sounds, soft to palpation, non-tender and non-distended
--- NOTE | 2023-07-29 15:08 | CASEMGMT ---
Patient's insurance was asking if there were any obstacles to patient going home as it appears patient is at his baseline. SW emphasized that patient's base line according to therapy was 100' and he is only walking 25', He has been home with home health and it is not enough therapy, and patient has had frequent bouts of weakness where the squad had to be called to assist. SW let patient know this information as well. Patient said if SW has more trouble to call his case sealer with [facility] and she will see what she can do to help. Loan Cisneros MANAGER SUPPLY CHAIN PLANNING BRUNO
[2023-07-29 15:55] VITALS: BP 104/58; PULSE 57; RESP 18; TEMP 36.7; O2SAT 99
[2023-07-29] MEDS: Insulin Lispro 100 UNIT/ML INSULN.PEN 15 UNIT SC (16:29)
[2023-07-29 16:49] LABS: Bedside Glucose 247 mg/dL (74-106)
[2023-07-29 18:42] LABS: Bedside Glucose 274 mg/dL (74-106)
[2023-07-29 20:39] LABS: Bedside Glucose 270 mg/dL (74-106)
[2023-07-29] MEDS: MELATONIN 3 MG TABLET PO (20:48)
[2023-07-29] MEDS: Atorvastatin Calcium 80 MG Tablet PO (20:48)
[2023-07-29] MEDS: traZODone 50 MG Tablet 150 MG PO (20:49)
[2023-07-29 21:00] VITALS: BP 121/61; PULSE 57; RESP 16; TEMP 36.7; O2SAT 96
[2023-07-30 03:00] VITALS: BP 146/60; PULSE 50; RESP 16; TEMP 36.7; O2SAT 99
[2023-07-30] MEDS: Heparin Injection (Vial) 5,000 UNIT/ML VIAL 5000 UNIT SC ×2 (05:11→13:56)
[2023-07-30] MEDS: Menthol/Lanolin/Calamine/Znox 113 GM Tube 1 APPLIC TOPICAL ×2 (05:12→13:53)
[2023-07-30] MEDS: Nystatin Powder 15gm Bottle 1 APPLIC TOPICAL ×2 (05:12→13:53)
[2023-07-30] MEDS: hydrOXYzine 10 MG Tablet PO ×2 (05:14→13:54)
[2023-07-30] MEDS: busPIRone 5 MG Tablet 7.5 MG PO ×2 (05:14→13:51)
--- NOTE | 2023-07-30 07:28 | CASEMGMT ---
ALICE CM: Call received from Anum with [facility] Transitional CM. Update re: pending peer to peer for SNF LOC provided. Per Anum, pt declined skilled therapy at home d/t confusion re: skilled and waiver services. States she has attempted to explain the difference to pt and his without understanding. Anum states she has also discussed palliative care with pt and his and they did not express understanding of this service. Anum has reached out to pt's [facility] chronic CM for additional assistance with ongoing care planning. Cole Boyle RN CM
[2023-07-30 07:43] VITALS: O2SAT 98
--- NOTE | 2023-07-30 08:15 | PN.HOSP_ITS ---
Reason for Visit Reason for Visit: Diagnoses Difficulty in walking, not elsewhere classified (07/27/23) Weakness (07/27/23) Other malaise (07/27/23) Subjective Subjective No new events. Said he wants to go home with home care. When I told him I would work on it, he quickly changed course and said that he wants to go to SNF. Objective Data Objective Data Vital Signs: Vital Signs Temp Pulse Resp BP Pulse Ox O2 Del Method O2 Flow Rate 36.7 C 50 L 16 146/60 H 98 Room Air 2 07/30/23 03:00 07/30/23 03:00 07/30/23 03:00 07/30/23 03:00 07/30/23 07:43 07/30/23 08:07 07/30/23 07:43 Oxygen Flow Rate (L/min) 2 Oxygen Delivery Method Room Air Weight: 123.5 kg Body Mass Index (BMI) 39.0 Intake & Output: Intake and Output for Last 24 Hours 07/28/23 07/29/23 07/30/23 23:59 23:59 23:59 Intake Total 1040 / 1040 1360 / 1360 Output Total 1700 / 2300 2600 / 3300 900 / 900 Balance -660 / -1260 -1240 / -1940 -900 / -900 Lab / Micro Data 07/29/23 05:31 07/29/23 05:31 Labs: Laboratory Results - last 24 hr 07/29/23 07:57: POC Glucose 120 H 07/29/23 11:11: POC Glucose 174 H 07/29/23 16:27: POC Glucose 247 H 07/29/23 18:17: POC Glucose 274 H 07/29/23 20:21: POC Glucose 270 H Physical Exam Const alert and no apparent distress Constitutional Narrative: up in chair. non-toxic. apearrs older than stated age. Neuro Sensorium / Orientation: awake and alert Assessment & Plan Assessment/Plan (1) Generalized weakness: PLAN: Debility and failure to thrive unable to take care of himself at home and has gradually gotten weaker PT OT eval and treat amenable to placement. Plan for the [facility] PLAN: Plan Chronic conditions: * Chronic respiratory failure due to CHF and CAD. on baseline 2L of oxygen.breathing treatment with bronchodilators. titrate oxygen to maintain sats >90% * Type 2 diabetes mellitus. on lantus.ISS. Accuchecks ACHS * Left foot hell ulcer. due to diabetes mellitus. wound care on board. * GERD: on PPI * HTN: amlodipine, caredilol * COPD * CAD: continue clopidogrel. DVT prophylaxis: heparin Disposition: plan for SNF. Charges/Coding Visit Charges Inpatient E&M: 52896 Subs Hosp L1
[2023-07-30 08:34] LABS: Bedside Glucose 116 mg/dL (74-106)
[2023-07-30 09:00] VITALS: BP 146/50; PULSE 55; RESP 18; TEMP 36.5; O2SAT 97
--- NOTE | 2023-07-30 09:40 | CASEMGMT ---
Insurance is requesting a peer to peer. Physician does not feel patient would be a good candidate for TCU due to low motivation. Should patient get denied for TCU patient could possibly go to [facility] his second choice under intermediate level of care. SW will await official denial and then discuss with patient. Loan Cisneros COVER MAKER BRUNO
--- NOTE | 2023-07-30 09:45 | CASEMGMT ---
Social Work Pt's power of tax associate attorney for healthcare, with the living will provision initialed, is scanned into the summary tab of the echart. She Gipson is listed as pt's healthcare POA. MAURA Jackson
[2023-07-30] MEDS: Aspirin E.C. 81 MG Tablet PO (09:46)
[2023-07-30] MEDS: Isosorbide Mononitrate 30 MG Tablet PO (09:47)
[2023-07-30] MEDS: Pregabalin 75 MG Capsule PO (09:47)
[2023-07-30] MEDS: Clopidogrel Bisulfate 75 MG Tablet PO (09:47)
[2023-07-30] MEDS: FLUoxetine 20 MG Capsule PO (09:47)
[2023-07-30] MEDS: Carvedilol 25 MG Tablet PO (09:47)
[2023-07-30] MEDS: Pantoprazole Sodium 40 MG Tablet PO (09:47)
[2023-07-30] MEDS: Furosemide 40 MG Tablet PO (09:47)
[2023-07-30] MEDS: amLODIPine 2.5 MG Tablet PO (09:47)
[2023-07-30] MEDS: Finasteride 5 MG Tablet PO (09:47)
[2023-07-30] MEDS: Losartan Potassium 50 MG Tablet PO (09:47)
[2023-07-30] MEDS: Fluoxetine HCl 40 MG CAPSULE PO (09:47)
[2023-07-30] MEDS: Insulin Glargine-YFGN 100 UNIT/ML Pen 25 UNIT SC (09:50)
[2023-07-30] MEDS: Insulin Lispro 100 UNIT/ML INSULN.PEN 15 UNIT SC ×3 (10:29→18:05)
--- NOTE | 2023-07-30 11:40 | CASEMGMT ---
Physician is not going to do the peer to peer for patient. RICO asked Nuria to send a referral to [facility] as this was patient's second choice. Therapy notified SW that patient now wants to go home. SW met with patient and his significant other. Patient said he wants to go home now. Patient said he does not want to go back to [facility] or any other penitentiary. Patient said he would like to go to [facility] for outpatient therapy. RICO told patient RICO will let the physician know this information. SW notified physician as well as Nuria d/c director of financial planning so she can notify Theresa. Plan: d/c home with outpatient therapy at [facility]. Loan Cisneros MSW BRUNO
--- NOTE | 2023-07-30 11:47 | CASEMGMT ---
Discharge Planning Referral sent to [place] via [facility]. Nuria Singh, Discharge Planning Asst.
[2023-07-30 11:56] VITALS: O2SAT 90
[2023-07-30 12:04] LABS: Bedside Glucose 144 mg/dL (74-106)
--- NOTE | 2023-07-30 12:52 | CASEMGMT ---
Discharge Planning Patient has been accepted by [facility]. They are submitting for intermediate loc. SW updated. Nuria Singh, Discharge Planning Asst.
--- NOTE | 2023-07-30 14:09 | CASEMGMT ---
Discharge Planning Patient has chosen to return home. [facility] updated via [facility]. Nuria Singh, Discharge Planning Asst.
--- NOTE | 2023-07-30 15:17 | CASEMGMT ---
ALICE PH[place] updated by RICO that patient would like outpatient therapy at [facility]. Script received and referral sent to [facility] to call patient to schedule appointment. Script provided to patient and updated that [facility] will be calling. Patient had no further questions or concerns.
--- NOTE | 2023-07-30 16:07 | DS.PCM_ITS ---
Providers Date of Admission: 07/27/23 Primary Care Physician: Dr. Doretha Brown MD Consultations 07/27/23 19:30 Consult: Onc/Wound/eco industrial development consultant Routine Comment: Reason for Consult:: Left foot wound Reason For Visit: WEAKNESS AND FTT Diagnosis Discharge Diagnosis (1) Generalized weakness: Status: Acute Code(s): R53.1 - Weakness Plan: Debility and failure to thrive unable to take care of himself at home and has gradually gotten weaker PT OT eval and treat amenable to placement. Plan for the [facility] Plan Chronic conditions: * Chronic respiratory failure due to CHF and CAD. on baseline 2L of oxygen.breathing treatment with bronchodilators. titrate oxygen to maintain sats >90% * Type 2 diabetes mellitus. on lantus.ISS. Accuchecks ACHS * Left foot hell ulcer. due to diabetes mellitus. wound care on board. * GERD: on PPI * HTN: amlodipine, caredilol * COPD * CAD: continue clopidogrel. DVT prophylaxis: heparin Disposition: to home with outpt therapy. Medications at Discharge Home Medications acetaminophen 500 mg tablet 1,000 mg PO Q24H PRN PAIN 02/11/21 aspirin 81 mg tablet,delayed release (Adult Aspirin Regimen) 81 mg PO DAILY HEART HEALTH 11/05/21 peg [id number] 1 %-0.2 %-0.2 % eye drops (Artificial Tears ([id number])) 2 drp EACH EYE Q1H PRN DRY EYES #0 mL 11/14/21 gauze bandage 4 X 4 (Bordered Gauze) #14 ea 07/03/22 walker (Ultra-Light Rollator [facility]) #1 ea 07/21/22 pen needle, diabetic 33 gauge x /16 #200 ea 12/02/22 fluoxetine 20 mg capsule 20 mg PO DAILY ANXIETY 03/23/23 melatonin 3 mg tablet 3 mg PO QHS INSOMNIA 03/23/23 amlodipine 2.5 mg tablet 2.5 mg PO DAILY BLOOD PRESSURE 05/25/23 atorvastatin 80 mg tablet 80 mg PO QHS CHOLESTEROL 05/25/23 buspirone 7.5 mg tablet 7.5 mg PO TID ANXIETY 05/25/23 carvedilol 12.5 mg tablet 25 mg PO BID HEART 05/25/23 finasteride 5 mg tablet 5 mg PO DAILY PROSTATE 05/25/23 fluoxetine 40 mg capsule 40 mg PO DAILY ANXIETY 05/25/23 furosemide 40 mg tablet 40 mg PO DAILY FLUID 05/25/23 hydroxyzine HCl 25 mg tablet 25 mg PO QHS PRN ANXIETY 05/25/23 losartan 50 mg tablet 50 mg PO DAILY BLOOD PRESSURE 05/25/23 pantoprazole 40 mg tablet,delayed release 40 mg PO DAILY ACID REFLUX 05/25/23 trazodone 150 mg tablet 150 mg PO QHS INSOMNIA 05/25/23 clopidogrel 75 mg tablet 75 mg PO DAILY BLOOD THINNER #30 tabs 05/28/23 isosorbide mononitrate 30 mg tablet,extended release 24 hr 30 mg PO DAILY HEART #30 tabs 05/28/23 menthol 0.44 %-zinc oxide 20.6 % topical ointment (Calmoseptine) 1 applic topical BID skin irritation #0 grams 06/08/23 pregabalin 75 mg capsule 75 mg PO BID pain #10 caps 06/08/23 insulin glargine-yfgn 100 unit/mL (3 mL) subcutaneous pen 25 unit (0.25 mL) subcut BID diabetes #0 mL 07/15/23 insulin lispro 100 unit/mL subcutaneous pen (Humalog KwikPen (U-100) Insulin) 15 unit (0.15 mL) subcut TIDAC diabetes #0 mL 07/15/23 insulin lispro 100 unit/mL subcutaneous pen (Humalog KwikPen (U-100) Insulin) See Protocol subcut ACHS #0 mL 07/15/23 Wheelchair #1 ea 07/23/23 albuterol sulfate 90 mcg/actuation aerosol inhaler 2 puff inhalation Q4H PRN SOB 07/27/23 docusate sodium 100 mg capsule 100 mg PO TID PRN constipation 07/27/23 hydroxyzine HCl 10 mg tablet 10 mg PO TID 07/27/23 Hospital Course Operations None Procedures None Summary of Care Provided Minutes Spent on Discharge: 32 Hospital Course: Patient presents with debility. Patient was rather a motivated to do any kind of therapy on his own to and insisted on getting care at a facility. Patient had been denied by insurance company for transitional care unit due to lack of motivation and was agreeable to the sentiments as I cannot vouch for the patient being an ideal candidate for going to acute right rehab and thriving. I did inform patient of this but told that we could look to try to get him to a another facility patient then stated that he wanted to go home with home care and then said he wanted a long term facility and then subsequently met with case management decide on discharge home with outpatient therapy at [facility]. Unclear if the patient will thrive at home if she would be motivated to actually do any kind of exercises on his own though he states that he does. Patient has a high likelihood of readmission given his overall poor performance status. Weight / BMI Weight Weight: 123.5 kg Body Mass Index (BMI) 39.0 ABG / Lab / Microbiology Data 07/29/23 05:31 07/29/23 05:31 Laboratory: Laboratory Results - last 24 hr 07/29/23 16:27: POC Glucose 247 H 07/29/23 18:17: POC Glucose 274 H 07/29/23 20:21: POC Glucose 270 H 07/30/23 08:15: POC Glucose 116 H 07/30/23 11:41: POC Glucose 144 H Meaningful Use Info Meaningful Use Diagnoses (Choose all that apply): None applicable Discharge Plan Admission Admit Date/Time: 07/27/23 18:41 Primary Reason for Your Visit: debility Attending Provider: Rex Tompkins Primary Care Provider: Doretha Brown Consulting Providers: Gabe Mathew Nana Yaa Discharge Orders/Prescriptions Prescriptions: No Action aspirin [Adult Aspirin Regimen] 81 mg tablet,delayed release (DR/EC) 81 mg PO DAILY (DME) Ultra-Light Rollator Misc See Rx Instructions .Route Qty: 1 2RF Rx Instructions: As directed (DME) pen needle, diabetic 33 gauge x 5/16 needle See Rx Instructions .Route Qty: 200 3RF Rx Instructions: As directed melatonin 3 mg tablet 3 mg PO QHS fluoxetine 20 mg capsule 20 mg PO DAILY acetaminophen 500 MG tablet 1,000 mg PO Q24H PRN (Reason: PAIN ) Artificial Tears([id number]) 1-0.2-0.2 % Drops 2 drp EACH EYE Q1H PRN (Reason: DRY EYES) Qty: 0 0RF (DME) gauze bandage [Bordered Gauze] 4 X 4 bandage See Rx Instructions .ROUTE .MEDSUPPLY Qty: 14 2RF Rx Instructions: Daily cleanse left foot wound with soap and water, dry and apply Betadine solution and apply clean dressing losartan 50 mg tablet 50 mg PO DAILY fluoxetine 40 mg capsule 40 mg PO DAILY trazodone 150 mg tablet 150 mg PO QHS carvedilol 12.5 mg tablet 25 mg PO BID amlodipine 2.5 mg tablet 2.5 mg PO DAILY pantoprazole 40 mg tablet,delayed release (DR/EC) 40 mg PO DAILY buspirone 7.5 mg tablet 7.5 mg PO TID hydroxyzine HCl 25 mg tablet 25 mg PO QHS PRN (Reason: ANXIETY ) furosemide 40 mg tablet 40 mg PO DAILY atorvastatin 80 mg tablet 80 mg PO QHS finasteride 5 mg tablet 5 mg PO DAILY menthol-zinc oxide [Calmoseptine] 0.44-20.6 % Ointment 1 applic topical BID Qty: 0 0RF Protocol: *Topical Application Instructions APPLICATION INSTRUCTIONS: buttock pregabalin 75 mg Capsule 75 mg PO BID Qty: 10 0RF albuterol sulfate 90 mcg/actuation HFA aerosol inhaler 2 puff INHALATION Q4H PRN (Reason: SOB) Patient Comments: INHALE 2 PUFFS EVERY 4 TO 6 HOURS NEEDED FOR WHEEZING OR SHORTNESS OF BREATH, USE WITH SPACER docusate sodium 100 mg capsule 100 mg PO TID PRN (Reason: constipation) Patient Comments: TAKE 1 CAPSULE BY MOUTH THREE TIMES DAILY NEEDED for FOR CONSTIPATION for up to 5 (FIVE) days hydroxyzine HCl 10 mg tablet 10 mg PO TID Patient Comments: TAKE 1 TABLET BY MOUTH THREE TIMES DAILY insulin lispro [Humalog KwikPen Insulin] 100 unit/mL Insulin Pen See Protocol subcut ACHS Qty: 0 0RF Protocol: 4. Sliding Scale Insulin High-Med Dosing Condition: 150-199 mg/dl = 2 units Condition: 200-259 mg/dl = 4 units Condition: 260-324 mg/dl = 6 units Condition: 325-374 mg/dl = 8 units Condition: 375-409 mg/dl = 10 units Condition: 410-449 mg/dl = 11 units Condition: Greater than 449 call physician Protocol Text: - Use for Total Daily Dose of Insulin 56-80 units - Patient who are insulin resistant or septic HIGH MEDIUM DOSING ALGORITHM insulin lispro [Humalog KwikPen Insulin] 100 unit/mL Insulin Pen 15 unit subcut TIDAC Qty: 0 0RF insulin glargine-yfgn 100 unit/mL (3 mL) Insulin Pen 25 unit subcut BID Qty: 0 0RF clopidogrel 75 mg tablet 75 mg PO DAILY Qty: 30 1RF isosorbide mononitrate 30 mg tablet extended release 24 hr 30 mg PO DAILY Qty: 30 1RF (DME) Wheelchair See Rx Instructions .Route .MEDSUPPLY Qty: 1 0RF Rx Instructions: As directed Referrals / Follow Up: Doretha Brown MD [Primary Care Provider] - Charges/Coding Visit Charges Inpatient E&M: 67376 Disch Hosp >30min
[2023-07-30 17:38] VITALS: BP 146/50; PULSE 55; RESP 18; TEMP 36.5; O2SAT 97
[2023-07-30 18:03] LABS: Bedside Glucose 222 mg/dL (74-106)
[2023-07-30] MEDS: Insulin Lispro 100 UNIT/ML INSULN.PEN SC (18:05)
== END 2023-07-30 20:39 | disposition home or self-care (01) ==
LOC: ED 18:41 → PCU 18:54
PROVIDERS: Student in an Organized Health Care Education/Training Program; Admitting Provider Family Medicine; Emergency Provider Emergency Medicine; PCP Internal Medicine
DX: R62.7 Adult failure to thrive (principal); E11.621 Type 2 diabetes mellitus with foot ulcer; L89.152 Pressure ulcer of sacral region, stage 2; E11.51 Type 2 diabetes mellitus with diabetic peripheral angiopathy without gangrene; L97.522 Non-pressure chronic ulcer of other part of left foot with fat layer exposed; J44.9 Chronic obstructive pulmonary disease, unspecified; E11.42 Type 2 diabetes mellitus with diabetic polyneuropathy; E11.22 Type 2 diabetes mellitus with diabetic chronic kidney disease; J96.10 Chronic respiratory failure, unspecified whether with hypoxia or hypercapnia; Z79.4 Long term (current) use of insulin; R53.1 Weakness; Z79.82 Long term (current) use of aspirin; D64.9 Anemia, unspecified; I25.10 Atherosclerotic heart disease of native coronary artery without angina pectoris; R26.2 Difficulty in walking, not elsewhere classified; S91.302A Unspecified open wound, left foot, initial encounter; N18.9 Chronic kidney disease, unspecified; E78.00 Pure hypercholesterolemia, unspecified; I12.9 Hypertensive chronic kidney disease with stage 1 through stage 4 chronic kidney disease, or unspecified chronic kidney disease; R53.81 Other malaise; Z79.02 Long term (current) use of antithrombotics/antiplatelets; Z79.899 Other long term (current) drug therapy; K21.9 Gastro-esophageal reflux disease without esophagitis; Z99.81 Dependence on supplemental oxygen; Z68.39 Body mass index [BMI] 39.0-39.9, adult
CPT/HCPCS: 36415; 71045; 80048; 80053; 81001; 82962; 83605; 85025; 93005; 97110; 97116; 97162; 97166; 97530; 97535; 97802; 99285; A4216

== ENCOUNTER 2023-08-03 15:52 | Emergency (ER) | payer MEDICARE, MEDICAID, SELFPAY ==
[2023-08-03 15:54] VITALS: BP 173/53; PULSE 60; RESP 18; TEMP 36.1; O2SAT 95
[2023-08-03 16:17] VITALS: BMI 39.7
--- NOTE | 2023-08-03 16:55 | EX.ED.DYSGE1 ---
HPI History of Present Illness Chief Complaint: Wound Narrative Narrative: Patient has a history of decubitus ulcers. He is now at home back from an ECF. He tells me he is worried about his buttocks, he has some pain and wants to make sure he does not have any kind of wounds or infection. He has no fevers or chills. He is worried because he is supposed to have a home health aide and a once reaching out him, apparently he was supposed to have an appointment with them today but in looking in the paperwork he missed that appointment. [facility] Medical History CELESTE (acute kidney injury) Ambulates with cane Amputation of one or more toes Anxiety Anxiety and depression Arrhythmia Arthritis Aspiration into airway Aspiration pneumonia Atherosclerotic heart disease of [place] coronary artery without angina pectoris Back pain Back spasm Bilateral leg weakness Blind left eye Blister (nonthermal), left foot, initial encounter Bronchiectasis with (acute) exacerbation Cardiology follow-up encounter Chronic cough Chronic respiratory failure with hypoxia CKD (chronic kidney disease) COPD (chronic obstructive pulmonary disease) CPAP (continuous positive airway pressure) dependence Debility, unspecified Depression Diabetes Essential hypertension Gastric reflux GERD (gastroesophageal reflux disease) High cholesterol History of aspiration pneumonia History of diabetes mellitus History of echocardiogram History of edema History of gout History of heart attack History of non-ST elevation myocardial infarction (NSTEMI) (08/2016) History of pain when walking History of steroid therapy History of stress test Hyperglycemia due to type 2 diabetes mellitus Hypertension Insulin dependent diabetes mellitus Kidney disease Kidney stones Kidney stones Leg pain, right Leukocytosis Low back pain Memory impairment Migraines Mood disorder Myocardial infarct Non-smoker Noncompliance by declining intervention or support On home oxygen therapy Peripheral vascular occlusive disease Pneumonia Prostate disease Pulmonary nodule, left Recurrent falls Right ankle pain Right foot pain Shortness of breath on exertion Silent aspiration Sleep apnea Tremor Type 2 diabetes mellitus Type 2 diabetes mellitus with diabetic polyneuropathy Ulcer of left foot, limited to breakdown of skin 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 Wears glasses Wound of left lower extremity Home Medications acetaminophen 500 mg tablet 1,000 mg PO Q24H PRN PAIN 02/11/21 [History Last Taken 05/24/23] aspirin 81 mg tablet,delayed release (Adult Aspirin Regimen) 81 mg PO DAILY HEART HEALTH 11/05/21 [History Last Taken 07/12/23] peg [id number] 1 %-0.2 %-0.2 % eye drops (Artificial Tears ([id number])) 2 drp EACH EYE Q1H PRN DRY EYES #0 mL 11/14/21 [Rx Last Taken 06/04/23] gauze bandage 4 X 4 (Bordered Gauze) #14 ea 07/03/22 [Rx Last Taken Unknown] walker (Ultra-Light Rollator [facility]) #1 ea 07/21/22 [Rx Last Taken Unknown] pen needle, diabetic 33 gauge x 04/13 #200 ea 12/02/22 [Rx Last Taken Unknown] fluoxetine 20 mg capsule 20 mg PO DAILY ANXIETY 03/23/23 [History Last Taken 07/12/23] melatonin 3 mg tablet 3 mg PO QHS INSOMNIA 03/23/23 [History Last Taken 07/12/23] amlodipine 2.5 mg tablet 2.5 mg PO DAILY BLOOD PRESSURE 05/25/23 [History Last Taken 07/12/23] atorvastatin 80 mg tablet 80 mg PO QHS CHOLESTEROL 05/25/23 [History Last Taken 07/12/23] buspirone 7.5 mg tablet 7.5 mg PO TID ANXIETY 05/25/23 [History Last Taken 07/13/23] carvedilol 12.5 mg tablet 25 mg PO BID HEART 05/25/23 [History Last Taken 07/12/23] finasteride 5 mg tablet 5 mg PO DAILY PROSTATE 05/25/23 [History Last Taken 07/12/23] fluoxetine 40 mg capsule 40 mg PO DAILY ANXIETY 05/25/23 [History Last Taken 07/12/23] furosemide 40 mg tablet 40 mg PO DAILY FLUID 05/25/23 [History Last Taken 07/12/23] hydroxyzine HCl 25 mg tablet 25 mg PO QHS PRN ANXIETY 05/25/23 [History Last Taken 06/04/23] losartan 50 mg tablet 50 mg PO DAILY BLOOD PRESSURE 05/25/23 [History Last Taken 07/12/23] pantoprazole 40 mg tablet,delayed release 40 mg PO DAILY ACID REFLUX 05/25/23 [History Last Taken 07/13/23] trazodone 150 mg tablet 150 mg PO QHS INSOMNIA 05/25/23 [History Last Taken 07/12/23] clopidogrel 75 mg tablet 75 mg PO DAILY BLOOD THINNER #30 tabs 05/28/23 [Rx Last Taken 07/12/23] isosorbide mononitrate 30 mg tablet,extended release 24 hr 30 mg PO DAILY HEART #30 tabs 05/28/23 [Rx Last Taken 07/12/23] menthol 0.44 %-zinc oxide 20.6 % topical ointment (Calmoseptine) 1 applic topical BID skin irritation #0 grams 06/08/23 [Rx Last Taken 07/12/23] pregabalin 75 mg capsule 75 mg PO BID pain #10 caps 06/08/23 [Rx Last Taken 07/12/23] insulin glargine-yfgn 100 unit/mL (3 mL) subcutaneous pen 25 unit (0.25 mL) subcut BID diabetes #0 mL 07/15/23 [Rx Last Taken 07/12/23] insulin lispro 100 unit/mL subcutaneous pen (Humalog KwikPen (U-100) Insulin) 15 unit (0.15 mL) subcut TIDAC diabetes #0 mL 07/15/23 [Rx Last Taken 07/12/23] insulin lispro 100 unit/mL subcutaneous pen (Humalog KwikPen (U-100) Insulin) See Protocol subcut ACHS #0 mL 07/15/23 [Rx Last Taken Unknown] Wheelchair #1 ea 07/23/23 [Rx Last Taken Unknown] albuterol sulfate 90 mcg/actuation aerosol inhaler 2 puff inhalation Q4H PRN SOB 07/27/23 [History Last Taken Unknown] docusate sodium 100 mg capsule 100 mg PO TID PRN constipation 07/27/23 [History Last Taken Unknown] hydroxyzine HCl 10 mg tablet 10 mg PO TID 07/27/23 [History Last Taken Unknown] Allergy/AdvReac Type Severity Reaction Status Date / Time allopurinol AdvReac Vomiting Verified 08/03/23 15:56 Influenza Virus Vaccines AdvReac Vomiting Verified 08/03/23 15:56 pneumococcal vaccine AdvReac Vomiting Verified 08/03/23 15:56 Family History Mother Diabetes Heart disease CHF Father Heart disease [place]/CAD Myocardial infarction Surgical History H/O lithotripsy History of angioplasty of peripheral vessel (2017) History of angioplasty of peripheral vessel History of ankle surgery History of cardiac catheterization History of coronary artery stent placement (08/2016) History of coronary artery stent placement History of esophagogastroduodenoscopy (EGD) History of left heart catheterization (11/15/17) History of thyroid surgery Hx of lithotripsy Hx of surgery to heart and great vessels, presenting hazards to health Hx of surgical procedure Hx of thyroidectomy Hx of toe surgery Hx of toe surgery PEG (percutaneous endoscopic gastrostomy) status Social History household members: spouse housing: apartment Smoking Status: Never smoker alcohol intake: never substance use type: does not use ROS ROS ED ROS Narrative Past medical history: Reviewed Medications: Reviewed Social history: Noncontributory Review of systems: All systems negative except as indicated General: No fever Eyes: No visual changes ENT: No upper airway congestion, normal voice Neck: No neck pain Cardiovascular: No chest pain Respiratory: No shortness of breath or cough Gastrointestinal: No abdominal pain, nausea vomiting or diarrhea Genitourinary: No dysuria Musculoskeletal: Chronic right heel wound, worried about buttock wounds. Skin: As above EXAM Physical Exam Narrative Exam Narrative: Physical exam General: Patient appears chronically ill but at this time he does not appear in any distress. Head: Normocephalic, Atraumatic Neck: Supple, Nontender, No lymphadenopathy Cardiovascular: Regular rate, Regular rhythm Respiratory: No distress, CTA bilaterally Abdomen: Soft, Nontender, Nondistended Back: Nontender, Normal Inspection. Negative for: CVA tenderness Buttocks: There is some skin breakdown but I do not see any ulcers. No erythema calor or signs of infection. Extremities: Trace bilateral edema. Right heel has an old wound that does not have any signs of infection currently. Skin: As above Const Vital Signs: 08/03/23 15:54 Temperature 97 F L Temperature Source Temporal Pulse Rate 60 Respiratory Rate 18 Blood Pressure 173/53 H Blood Pressure Mean 93 Pulse Ox 95 Oxygen Delivery Method Room Air MDM MDM MDM Narrative Medical decision making narrative: Patient's work-up is unremarkable. He does have skin breakdown, however I do not see any signs of infection. I do not believe he meets criteria for antibiotics. I did express to him and his the fact that they really need to turn in bed and not put pressure. I recommended foam, I had social work see them and I discussed with social work, apparently he does have appointments coming up. He will follow-up. Otherwise I will discharge him in stable condition. Lab Data Labs: Laboratory Results - last 24 hr 08/03/23 17:10 WBC 10.7 RBC 4.41 L Hgb 12.1 L Hct 38.6 L MCV 87.5 MCH 27.4 MCHC 31.3 L RDW Std Deviation 46.3 H RDW Coeff of James 14.4 Plt Count 204 MPV 11.2 Immature Gran % (Auto) 0.500 Neut % (Auto) 72.5 H Lymph % (Auto) 17.3 L [place] % (Auto) 7.6 Eos % (Auto) 1.6 Baso % (Auto) 0.5 Absolute Neuts (auto) 7.8 H Absolute Lymphs (auto) 1.85 Nucleated RBC % 0 Sodium 142 Potassium 4.6 Chloride 108 H Carbon Dioxide 31.0 Anion Gap 3 L BUN 22 H Creatinine 1.23 Estim Creat Clear Calc 62.65 Est GFR (MDRD) Af Amer 76 Est GFR (MDRD) Non-Af 63 BUN/Creatinine Ratio 17.9 Glucose 173 H Calcium 9.2 Total Bilirubin 0.40 AST 22 ALT 24 Alkaline Phosphatase 121 H Total Protein 7.7 Albumin 3.3 Globulin 4.4 H Albumin/Globulin Ratio 0.8 L Discharge Plan Triage Chief Complaint: Wound ED Provider: Freddy Lemus Dx/Rx/DC Orders Clinical Impression: Visit for wound check, Skin breakdown Instructions: Wound Care Prescriptions: No Action aspirin [Adult Aspirin Regimen] 81 mg tablet,delayed release (DR/EC) 81 mg PO DAILY (DME) Ultra-Light Rollator Misc See Rx Instructions .Route Qty: 1 2RF Rx Instructions: As directed (DME) pen needle, diabetic 33 gauge x 5/16 needle See Rx Instructions .Route Qty: 200 3RF Rx Instructions: As directed melatonin 3 mg tablet 3 mg PO QHS fluoxetine 20 mg capsule 20 mg PO DAILY acetaminophen 500 MG tablet 1,000 mg PO Q24H PRN (Reason: PAIN ) Artificial Tears(kg-ocyr-caam) 1-0.2-0.2 % Drops 2 drp EACH EYE Q1H PRN (Reason: DRY EYES) Qty: 0 0RF (DME) gauze bandage [Bordered Gauze] 4 X 4 bandage See Rx Instructions .ROUTE .MEDSUPPLY Qty: 14 2RF Rx Instructions: Daily cleanse left foot wound with soap and water, dry and apply Betadine solution and apply clean dressing losartan 50 mg tablet 50 mg PO DAILY fluoxetine 40 mg capsule 40 mg PO DAILY trazodone 150 mg tablet 150 mg PO QHS carvedilol 12.5 mg tablet 25 mg PO BID amlodipine 2.5 mg tablet 2.5 mg PO DAILY pantoprazole 40 mg tablet,delayed release (DR/EC) 40 mg PO DAILY buspirone 7.5 mg tablet 7.5 mg PO TID hydroxyzine HCl 25 mg tablet 25 mg PO QHS PRN (Reason: ANXIETY ) furosemide 40 mg tablet 40 mg PO DAILY atorvastatin 80 mg tablet 80 mg PO QHS finasteride 5 mg tablet 5 mg PO DAILY menthol-zinc oxide [Calmoseptine] 0.44-20.6 % Ointment 1 applic topical BID Qty: 0 0RF Protocol: *Topical Application Instructions APPLICATION INSTRUCTIONS: buttock pregabalin 75 mg Capsule 75 mg PO BID Qty: 10 0RF albuterol sulfate 90 mcg/actuation HFA aerosol inhaler 2 puff INHALATION Q4H PRN (Reason: SOB) Patient Comments: INHALE 2 PUFFS EVERY 4 TO 6 HOURS NEEDED FOR WHEEZING OR SHORTNESS OF BREATH, USE WITH SPACER docusate sodium 100 mg capsule 100 mg PO TID PRN (Reason: constipation) Patient Comments: TAKE 1 CAPSULE BY MOUTH THREE TIMES DAILY NEEDED for FOR CONSTIPATION for up to 5 (FIVE) days hydroxyzine HCl 10 mg tablet 10 mg PO TID Patient Comments: TAKE 1 TABLET BY MOUTH THREE TIMES DAILY insulin lispro [Humalog KwikPen Insulin] 100 unit/mL Insulin Pen See Protocol subcut ACHS Qty: 0 0RF Protocol: 4. Sliding Scale Insulin High-Med Dosing Condition: 150-199 mg/dl = 2 units Condition: 200-259 mg/dl = 4 units Condition: 260-324 mg/dl = 6 units Condition: 325-374 mg/dl = 8 units Condition: 375-409 mg/dl = 10 units Condition: 410-449 mg/dl = 11 units Condition: Greater than 449 call physician Protocol Text: - Use for Total Daily Dose of Insulin 56-80 units - Patient who are insulin resistant or septic HIGH MEDIUM DOSING ALGORITHM insulin lispro [Humalog KwikPen Insulin] 100 unit/mL Insulin Pen 15 unit subcut TIDAC Qty: 0 0RF insulin glargine-yfgn 100 unit/mL (3 mL) Insulin Pen 25 unit subcut BID Qty: 0 0RF clopidogrel 75 mg tablet 75 mg PO DAILY Qty: 30 1RF isosorbide mononitrate 30 mg tablet extended release 24 hr 30 mg PO DAILY Qty: 30 1RF (DME) Wheelchair See Rx Instructions .Route .MEDSUPPLY Qty: 1 0RF Rx Instructions: As directed Primary Care Provider: Doretha Brown Referrals: Doretha Brown MD [Primary Care Provider] - 3-5 Days Disposition Disposition: Home, Self Care
[2023-08-03 17:16] LABS: Absolute Lymphocyte Count 1.85 X10^3/uL (0.83-4.51); Absolute Neutrophil Count 7.8 X10^3/uL (2.0-7.7); Basophil# 0.05 X10^3/uL; Basophil% 0.5 % (0-1); Eosinophil# 0.17 X10^3/uL; Eosinophils% 1.6 % (0-5); Hematocrit 38.6 % (40-54); Hemoglobin 12.1 g/dL (13.0-16.5); Lymphocyte # 1.85 X10^3/ul (0.83-4.51); Lymphocyte % 17.3 % (19-41); Mean Corp Hgb Conc 31.3 g/dL (32-36); Mean Corpuscular Hgb 27.4 pg (27.0-32.0); Mean Corpuscular Volume 87.5 fL (80-94); Mean Platelet Vol. 11.2 fl (6.2-12.0); Monocyte# 0.81 X10^3/uL; Monocyte% 7.6 % (0-10); NRBC Flagged by Analyzer 0 % (0-5); Neutrophil # 7.76 X10^3/uL (2.7-7.7); Neutrophil % 72.5 % (47-70); Platelet Count 204 K/mm3 (150-450); RBC Distribution Width CV 14.4 % (11.6-14.6); RBC Distribution Width SD 46.3 fl (35.1-43.9); Red Blood Count 4.41 M/mm3 (4.6-6.2); White Blood Count 10.7 K/mm3 (4.4-11.0)
--- NOTE | 2023-08-03 17:44 | CM.ED ---
Social Work Referral Source; MD Lemus Referral Reason: resources SW met with patient and patient's and introduced self and role as [facility] SW. Patient recalls speaking with SW during prior ED visit and is agreeable to speak with SW. SW reviewed d/c plan from patient's previous admissions to [facility], follow up with [facility] for outpatient therapy. Patient verified and reports he has an appointment scheduled with [facility] next Wednesday. Patient reports his foot wound has improved so he is hopeful he will continue to improve with outpatient. Patient's reports patient is currently working with [facility] family service caseworker Gigi, [facility] and Palliative Care services. Patient continues to state he does not want to go to a SNF but is interested in going to [facility] for outpatient therapy. Patient agreeable to SW contacting [facility] to discuss options. SW contacted [facility] and spoke with physical therapist Trav. Trav reports he will review patient's information with the director who will contact patient to further discuss options for outpatient therapy. SW informed patient and patient's of conversation, patient expressed his appreciation. Patient reports if he is unable to go to [facility] for outpatient, he will continue with his appointment to [facility] next week. SW then educated patient and patient's on [facility] program and inquired if patient would be interested in a referral, patient and patient's interested. SW explained she could make a referral and they would contact patient if he qualifies, but a referral does not guarantee services, patient voiced understanding. Patient then inquired about food. SW to inquire. SW reviewed conversation and resources provided with . states patient is able to have food; SW provided. Referral to [facility] made. Plan: Outpatient therapy scheduled at [facility] next Wednesday, [facility] to contact patient to discuss outpatient options at their facility; referral for [facility] BRUNO Ricardo
[2023-08-03 17:48] LABS: ALB/GLOB Ratio 0.8 RATIO (0.9-2.4); AST(SGOT) 22 U/L (15-37); Alanine Aminotransfer ALT/SGPT 24 U/L (16-61); Albumin, Serum 3.3 g/dL (3.2-5.0); Alkaline Phosphatase 121 U/L (45-117); Anion Gap 3 (5-15); BUN 22 mg/dL (7-18); BUN/Creat Ratio 17.9 RATIO (10-20); Calcium,Total 9.2 mg/dL (8.5-10.1); Chloride 108 mmol/L (98-107); Creatinine, Serum 1.23 mg/dL (0.70-1.30); EST Glomerular Filtration Rate 63 mL/min (>60); Est Glom Filt Rate - Afr Amer 76 mL/min (>60); Estimated Creatinine Clearance 62.65 ml/min; Globulin 4.4 g/dL (2.2-4.2); Glucose 173 mg/dL (74-106); Potassium 4.6 mmol/L (3.5-5.1); Protein, Total 7.7 g/dL (6.4-8.2); Sodium Level 142 mmol/L (136-145)
[2023-08-03 19:09] VITALS: RESP 20
--- NOTE | 2023-08-04 15:54 | CCN.REFER ---
PATIENT AGREEABLE TO [facility].
== END 2023-08-03 19:10 | disposition home or self-care (01) ==
PROVIDERS: Emergency Provider Emergency Medicine; PCP Internal Medicine; Visit Provider Emergency Medicine
DX: Z51.89 Encounter for other specified aftercare (principal); J44.9 Chronic obstructive pulmonary disease, unspecified; E11.22 Type 2 diabetes mellitus with diabetic chronic kidney disease; E11.42 Type 2 diabetes mellitus with diabetic polyneuropathy; Z79.4 Long term (current) use of insulin; I25.10 Atherosclerotic heart disease of native coronary artery without angina pectoris; N18.9 Chronic kidney disease, unspecified; E78.00 Pure hypercholesterolemia, unspecified; I12.9 Hypertensive chronic kidney disease with stage 1 through stage 4 chronic kidney disease, or unspecified chronic kidney disease; Z99.89 Dependence on other enabling machines and devices; I25.2 Old myocardial infarction; Z79.899 Other long term (current) drug therapy; Z79.82 Long term (current) use of aspirin; F41.8 Other specified anxiety disorders; K21.9 Gastro-esophageal reflux disease without esophagitis; Z79.01 Long term (current) use of anticoagulants; Z95.5 Presence of coronary angioplasty implant and graft
CPT/HCPCS: 80053; 85025; 99284; A4216

== ENCOUNTER 2023-08-09 14:56 | Observation (INO) | payer MEDICARE, MEDICAID, SELFPAY ==
[2023-08-09] VITALS (8 sets, daily range): BP systolic 132–150; BP diastolic 63–108; PULSE 59–82; RESP 16–22; TEMP 36.6–38.1; O2SAT 95–100; BMI 39.6; BMI 38.6
--- NOTE | 2023-08-09 15:00 | EX.ED.DYSGE1 ---
HPI History of Present Illness Chief Complaint: Fatigue Informant: patient and EMS Narrative Narrative: 63-year-old male with chronic multiple medical problems presenting to the emergency emergency room with generalized fatigue. Patient has been in and out of nursing homes. Recently left nursing facility to live back at home. He saw primary care on Wednesday. He had a in-home home health eval today and was supposed to go to PT eval but did not. He states that over the past 3 days he has been a unable to get up and use the bathroom. Typically gets assistance from his son. He states he is afraid he is going to . He recently has been diagnosed with a stage II decubitus ulcer on the left sacral region. He states that he is very cold. He states he has not been eating. He offers very vague nonclarifying answers to yes or no questions. It is difficult to get clarity from him. However he can recall stories without difficulty. He is typically wheelchair-bound. He also complains of being constipated but has had multiple bowel movements since arriving here in the department. Nursing also reports that he is feeling nauseated and has vomited. [facility] Medical History CELESTE (acute kidney injury) Ambulates with cane Amputation of one or more toes Anxiety Anxiety and depression Arrhythmia Arthritis Aspiration into airway Aspiration pneumonia Atherosclerotic heart disease of [place] coronary artery without angina pectoris Back pain Back spasm Bilateral leg weakness Blind left eye Blister (nonthermal), left foot, initial encounter Bronchiectasis with (acute) exacerbation Cardiology follow-up encounter Chronic cough Chronic respiratory failure with hypoxia CKD (chronic kidney disease) COPD (chronic obstructive pulmonary disease) CPAP (continuous positive airway pressure) dependence Debility, unspecified Decubitus ulcer limited to breakdown of skin (stage 2) Depression Diabetes Essential hypertension Gastric reflux GERD (gastroesophageal reflux disease) High cholesterol History of aspiration pneumonia History of diabetes mellitus History of echocardiogram History of edema History of gout History of heart attack History of non-ST elevation myocardial infarction (NSTEMI) (08/2016) History of pain when walking History of steroid therapy History of stress test Hyperglycemia due to type 2 diabetes mellitus Hypertension Insulin dependent diabetes mellitus Kidney disease Kidney stones Kidney stones Leg pain, right Leukocytosis Low back pain Memory impairment Migraines Mood disorder Myocardial infarct Non-smoker Noncompliance by declining intervention or support On home oxygen therapy Peripheral vascular occlusive disease Pneumonia Prostate disease Pulmonary nodule, left Recurrent falls Right ankle pain Right foot pain Shortness of breath on exertion Silent aspiration Sleep apnea Tremor Type 2 diabetes mellitus Type 2 diabetes mellitus with diabetic polyneuropathy Ulcer of left foot, limited to breakdown of skin 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 Wears glasses Wound of left lower extremity Home Medications acetaminophen 500 mg tablet 1,000 mg PO Q24H PRN PAIN 02/11/21 [History Last Taken 05/24/23] aspirin 81 mg tablet,delayed release (Adult Aspirin Regimen) 81 mg PO DAILY HEART HEALTH 11/05/21 [History Last Taken 07/12/23] peg [id number] 1 %-0.2 %-0.2 % eye drops (Artificial Tears ([id number])) 2 drp EACH EYE Q1H PRN DRY EYES #0 mL 11/14/21 [Rx Last Taken 06/04/23] gauze bandage 4 X 4 (Bordered Gauze) #14 ea 07/03/22 [Rx Last Taken Unknown] walker (Ultra-Light Rollator [facility] [place]) #1 ea 07/21/22 [Rx Last Taken Unknown] pen needle, diabetic 33 gauge x 5/16 #200 ea 12/02/22 [Rx Last Taken Unknown] fluoxetine 20 mg capsule 20 mg PO DAILY ANXIETY 03/23/23 [History Last Taken 07/12/23] melatonin 3 mg tablet 3 mg PO QHS INSOMNIA 03/23/23 [History Last Taken 07/12/23] amlodipine 2.5 mg tablet 2.5 mg PO DAILY BLOOD PRESSURE 05/25/23 [History Last Taken 07/12/23] atorvastatin 80 mg tablet 80 mg PO QHS CHOLESTEROL 05/25/23 [History Last Taken 07/12/23] buspirone 7.5 mg tablet 7.5 mg PO TID ANXIETY 05/25/23 [History Last Taken 07/13/23] carvedilol 12.5 mg tablet 25 mg PO BID HEART 05/25/23 [History Last Taken 07/12/23] finasteride 5 mg tablet 5 mg PO DAILY PROSTATE 05/25/23 [History Last Taken 07/12/23] fluoxetine 40 mg capsule 40 mg PO DAILY ANXIETY 05/25/23 [History Last Taken 07/12/23] hydroxyzine HCl 25 mg tablet 25 mg PO QHS PRN ANXIETY 05/25/23 [History Last Taken 06/04/23] losartan 50 mg tablet 50 mg PO DAILY BLOOD PRESSURE 05/25/23 [History Last Taken 07/12/23] pantoprazole 40 mg tablet,delayed release 40 mg PO DAILY ACID REFLUX 05/25/23 [History Last Taken 07/13/23] trazodone 150 mg tablet 150 mg PO QHS INSOMNIA 05/25/23 [History Last Taken 07/12/23] clopidogrel 75 mg tablet 75 mg PO DAILY BLOOD THINNER #30 tabs 05/28/23 [Rx Last Taken 07/12/23] isosorbide mononitrate 30 mg tablet,extended release 24 hr 30 mg PO DAILY HEART #30 tabs 05/28/23 [Rx Last Taken 07/12/23] menthol 0.44 %-zinc oxide 20.6 % topical ointment (Calmoseptine) 1 applic topical BID skin irritation #0 grams 06/08/23 [Rx Last Taken 07/12/23] pregabalin 75 mg capsule 75 mg PO BID pain #10 caps 06/08/23 [Rx Last Taken 07/12/23] insulin glargine-yfgn 100 unit/mL (3 mL) subcutaneous pen 25 unit (0.25 mL) subcut BID diabetes #0 mL 07/15/23 [Rx Last Taken 07/12/23] insulin lispro 100 unit/mL subcutaneous pen (Humalog KwikPen (U-100) Insulin) 15 unit (0.15 mL) subcut TIDAC diabetes #0 mL 07/15/23 [Rx Last Taken 07/12/23] insulin lispro 100 unit/mL subcutaneous pen (Humalog KwikPen (U-100) Insulin) See Protocol subcut ACHS #0 mL 07/15/23 [Rx Last Taken Unknown] Wheelchair #1 ea 07/23/23 [Rx Last Taken Unknown] albuterol sulfate 90 mcg/actuation aerosol inhaler 2 puff inhalation Q4H PRN SOB 07/27/23 [History Last Taken Unknown] docusate sodium 100 mg capsule 100 mg PO TID PRN constipation 07/27/23 [History Last Taken Unknown] hydroxyzine HCl 10 mg tablet 10 mg PO TID 07/27/23 [History Last Taken Unknown] Lift Chair #1 ea 08/06/23 [Rx Last Taken Unknown] Allergy/AdvReac Type Severity Reaction Status Date / Time allopurinol AdvReac Vomiting Verified 08/09/23 15:00 Influenza Virus Vaccines AdvReac Vomiting Verified 08/09/23 15:00 pneumococcal vaccine AdvReac Vomiting Verified 08/09/23 15:00 Family History Mother Diabetes Heart disease CHF Father Heart disease GA/CAD Myocardial infarction Surgical History H/O lithotripsy History of angioplasty of peripheral vessel (2016) History of angioplasty of peripheral vessel History of ankle surgery History of cardiac catheterization History of coronary artery stent placement (08/2016) History of coronary artery stent placement History of esophagogastroduodenoscopy (EGD) History of left heart catheterization (11/15/17) History of thyroid surgery Hx of lithotripsy Hx of surgery to heart and great vessels, presenting hazards to health Hx of surgical procedure Hx of thyroidectomy Hx of toe surgery Hx of toe surgery PEG (percutaneous endoscopic gastrostomy) status Social History household members: spouse housing: apartment Smoking Status: Never smoker alcohol intake: never substance use type: does not use ROS ROS ED ROS Narrative Patient reports not eating due to no appetite decreased ability to transfer out of bed and roll in bed Constitutional Constitutional ED: Reports chills; Denies fever(s) or weight loss Eyes Eyes: Denies change in vision or diplopia ENT ENT ED: Denies ear pain, rhinorrhea or sore throat Cardiovascular Cardiovascular: Denies chest pain, orthopnea, palpitations or racing heartbeat Respiratory/Chest Respiratory/Chest: Reports cough and other Details: Chronic cough no change ; Denies dyspnea or orthopnea Gastrointestinal Gastrointestinal: Reports constipation; Denies abdominal pain, diarrhea, nausea or vomiting Genitourinary Genitourinary ED: Denies dysuria, hematuria or urinary frequency Musculoskeletal Musculoskeletal: Denies arthralgias or myalgias Integumentary Reports other Details: Left sacral decub ; Denies abscess or rash Neurologic Neurologic: Denies headache(s) or weakness Psychiatric Psychiatric: Denies anxiety, depression, suicidal ideation or suicidal thoughts Endocrine Endocrinology: Denies polydipsia, polyphagia or polyuria Allergic/Immunologic Allergic/Immunologic ED: Denies mouth swelling, tongue swelling or urticaria EXAM Physical Exam Narrative Exam Narrative: Patient is generally shaking in the bed. Shaking does stop with purposeful movement Const Vital Signs: 08/09/23 15:00 08/09/23 15:04 Temperature 97.9 F 97.9 F Temperature Source Temporal Temporal Pulse Rate 80 82 Respiratory Rate 20 H 20 H Blood Pressure 150/108 H 150/108 H Blood Pressure Mean 122 122 Pulse Ox 96 98 Oxygen Delivery Method Room Air Room Air Positive well nourished, well developed, obese and unkempt General Appearance ED: unkempt and well developed Nutritional Appearance: obese HEENT Reports normocephalic, head/scalp atraumatic and moist mucous membranes Eyes PERRL and EOMs intact bilaterally Neck no lymphadenopathy, supple and no JVD Resp normal respiratory effort and clear to auscultation bilaterally Cardio regular rate, regular rhythm and no murmurs GI normal to inspection, nondistended, normoactive bowel sounds and non-tender Inspection: Negative for abdominal distention Auscultation: normoactive bowel sounds Palpation: soft Back/Spine no CVA tenderness and normal ROM Extremity Extremity Narrative: Patient has chronic wound to the left dorsum of the foot. He is missing multiple toes due to surgical removal. General Extremety ED: Yes edema General Extremity: edema bilateral lower extremity Neuro oriented x3 and CN's II-XII intact bilaterally Sensorium / Orientation: alert Motor Exam: strength 5/5 throughout Psych mental status grossly normal Appearance: unkempt Mood & Affect: Negative for depressed or tearful Skin no rashes or lesions noted Skin Narrative: Stage II left sacral decubitus. No surrounding erythema suggestive of secondary infection. MDM MDM MDM Narrative Medical decision making narrative: Blood work showed a leukocytosis at 17. Creatinine 1.41. His glucose was low and he received D50. This is most likely because he has been taking his diabetic medications but not eating. Urinalysis negative for infection. My interpretation of the chest x-ray is chronic changes but no acute process. CTA of the pelvis was obtained which is negative for acute. Patient is unable to transfer on his own. He has an unexplained white count of 17.2. I do not believe his decubitus is acutely infected. He is not constipated as evidenced by his multiple bowel movements here. He is unable to care for himself and his family is unable to care for him at home once again. Patient was explicitly told that he will need to go to group home. He should not leave group home unless he is able to care for himself. I also informed him that should his decubitus ulcer worsen and he continues to be unable to get himself to the bathroom he will potentially need a diverting colostomy. Patient understands and is agreeable to group home. Lab Data Attestation: I reviewed the patient's lab results. Labs: Laboratory Results - last 24 hr 08/09/23 08/09/23 15:40 16:17 WBC 17.2 H RBC 5.02 Hgb 13.8 Hct 43.9 MCV 87.5 MCH 27.5 MCHC 31.4 L RDW Std Deviation 44.7 H RDW Coeff of James 14.0 Plt Count 239 MPV 10.6 Immature Gran % (Auto) 0.400 Neut % (Auto) 84.1 H Lymph % (Auto) 9.3 L Spencer % (Auto) 5.1 Eos % (Auto) 0.8 Baso % (Auto) 0.3 Absolute Neuts (auto) 14.5 H Absolute Lymphs (auto) 1.60 Nucleated RBC % 0 Sodium 142 Potassium 4.2 Chloride 106 Carbon Dioxide 32.0 Anion Gap 4 L BUN 16 Creatinine 1.41 H Estim Creat Clear Calc 54.65 Est GFR (MDRD) Af Amer 65 Est GFR (MDRD) Non-Af 54 L BUN/Creatinine Ratio 11.3 Glucose 65 L Lactic Acid 1.5 Calcium 9.3 Total Bilirubin 0.40 Direct Bilirubin 0.16 AST 20 ALT 19 Alkaline Phosphatase 129 H Troponin I High Sens 15 Total Protein 8.0 Albumin 3.2 Globulin 4.8 H Urine Color Yellow Urine Clarity Clear Urine pH 6.0 Ur Specific [place] 1.020 Urine Protein 30 H Urine Glucose (UA) Normal Urine Ketones Negative Urine Occult Blood 10 H Urine Nitrite Negative Urine Bilirubin Negative Urine Urobilinogen Normal Ur Leukocyte Esterase Negative Urine RBC 0 SEEN Urine WBC 0 SEEN Ur Squamous Epith Cells 0-5 SEEN Urine Bacteria 0 SEEN Urine Mucus 0 SEEN Radiography Diagnostic Testing: Clinical Impression(s) from Imaging Studies Chest X-Ray 08/09/23 15:45 IMPRESSION: No significant change. No new infiltrate is seen. Electronically Signed: Beni Correa MD at 16:22 EDT , Abdomen/Pelvis CT 08/09/23 16:31 IMPRESSION: 1. Persistent nonobstructing left renal stone without evidence of hydronephrosis. 2. No focal acute inflammatory process. 3. Left inguinal hernia with bulging small bowel loop without evidence of bowel obstruction.. Electronically Signed: Beni Correa MD at 17:26 EDT , EKG Initial EKG: Attestation: I personally reviewed and interpreted this EKG as follows: Interpretation: Sinus Rhythm Comments: Sinus rhythm with PAC noted. Ventricular rate of 81 bpm. No concerning features of ACS noted Discharge Plan Triage Chief Complaint: Fatigue ED Provider: Jason Bryan Dx/Rx/DC Orders Clinical Impression: Diabetic hypoglycemia, Vomiting, Decubitus ulcer of sacral region, stage 2, Type 2 diabetes mellitus with diabetic polyneuropathy Prescriptions: No Action aspirin [Adult Aspirin Regimen] 81 mg tablet,delayed release (DR/EC) 81 mg PO DAILY (DME) Ultra-Light Rollator Misc See Rx Instructions .Route Qty: 1 2RF Rx Instructions: As directed (DME) pen needle, diabetic 33 gauge x 5/16 needle See Rx Instructions .Route Qty: 200 3RF Rx Instructions: As directed melatonin 3 mg tablet 3 mg PO QHS fluoxetine 20 mg capsule 20 mg PO DAILY (DME) Lift Chair See Rx Instructions .Route .MEDSUPPLY Qty: 1 0RF Rx Instructions: As directed acetaminophen 500 MG tablet 1,000 mg PO Q24H PRN (Reason: PAIN ) Artificial Tears([id number]) 1-0.2-0.2 % Drops 2 drp EACH EYE Q1H PRN (Reason: DRY EYES) Qty: 0 0RF (DME) gauze bandage [Bordered Gauze] 4 X 4 bandage See Rx Instructions .ROUTE .MEDSUPPLY Qty: 14 2RF Rx Instructions: Daily cleanse left foot wound with soap and water, dry and apply Betadine solution and apply clean dressing losartan 50 mg tablet 50 mg PO DAILY fluoxetine 40 mg capsule 40 mg PO DAILY trazodone 150 mg tablet 150 mg PO QHS carvedilol 12.5 mg tablet 25 mg PO BID amlodipine 2.5 mg tablet 2.5 mg PO DAILY pantoprazole 40 mg tablet,delayed release (DR/EC) 40 mg PO DAILY buspirone 7.5 mg tablet 7.5 mg PO TID hydroxyzine HCl 25 mg tablet 25 mg PO QHS PRN (Reason: ANXIETY ) atorvastatin 80 mg tablet 80 mg PO QHS finasteride 5 mg tablet 5 mg PO DAILY menthol-zinc oxide [Calmoseptine] 0.44-20.6 % Ointment 1 applic topical BID Qty: 0 0RF Protocol: *Topical Application Instructions APPLICATION INSTRUCTIONS: buttock pregabalin 75 mg Capsule 75 mg PO BID Qty: 10 0RF albuterol sulfate 90 mcg/actuation HFA aerosol inhaler 2 puff INHALATION Q4H PRN (Reason: SOB) Patient Comments: INHALE 2 PUFFS EVERY 4 TO 6 HOURS NEEDED FOR WHEEZING OR SHORTNESS OF BREATH, USE WITH SPACER docusate sodium 100 mg capsule 100 mg PO TID PRN (Reason: constipation) Patient Comments: TAKE 1 CAPSULE BY MOUTH THREE TIMES DAILY NEEDED for FOR CONSTIPATION for up to 5 (FIVE) days hydroxyzine HCl 10 mg tablet 10 mg PO TID Patient Comments: TAKE 1 TABLET BY MOUTH THREE TIMES DAILY insulin lispro [Humalog KwikPen Insulin] 100 unit/mL Insulin Pen See Protocol subcut ACHS Qty: 0 0RF Protocol: 4. Sliding Scale Insulin High-Med Dosing Condition: 150-199 mg/dl = 2 units Condition: 200-259 mg/dl = 4 units Condition: 260-324 mg/dl = 6 units Condition: 325-374 mg/dl = 8 units Condition: 375-409 mg/dl = 10 units Condition: 410-449 mg/dl = 11 units Condition: Greater than 449 call physician Protocol Text: - Use for Total Daily Dose of Insulin 56-80 units - Patient who are insulin resistant or septic HIGH MEDIUM DOSING ALGORITHM insulin lispro [Humalog KwikPen Insulin] 100 unit/mL Insulin Pen 15 unit subcut TIDAC Qty: 0 0RF insulin glargine-yfgn 100 unit/mL (3 mL) Insulin Pen 25 unit subcut BID Qty: 0 0RF clopidogrel 75 mg tablet 75 mg PO DAILY Qty: 30 1RF isosorbide mononitrate 30 mg tablet extended release 24 hr 30 mg PO DAILY Qty: 30 1RF (DME) Wheelchair See Rx Instructions .Route .MEDSUPPLY Qty: 1 0RF Rx Instructions: As directed Primary Care Provider: Doretha Brown Referrals: Doretha Brown MD [Primary Care Provider] -
--- NOTE | 2023-08-09 15:19 | EKG12_ITS ---
Test Reason : GENERAL Blood Pressure : / mmHG Vent. Rate : 081 BPM Atrial Rate : 081 BPM P-R Int : 202 ms QRS Dur : 092 ms QT Int : 408 ms P-R-T Axes : 083 007 057 degrees QTc Int : 473 ms Sinus rhythm with Premature atrial complexes Otherwise normal ECG Confirmed by ARAMIS JOHNS, MAURO ([id number]), video effects editor MAYDA ORTEGA ([id number]) on 08/12/2023 1:54:27 PM Referred By: Confirmed By:MAURO SELF MD
--- NOTE | 2023-08-09 15:45 | RAD_ITS ---
INDICATION: copd EXAMINATION/TECHNIQUE: X-RAY - XR Chest 1 View COMPARISON: 07/27/2023. FINDINGS: LINES/DEVICES: None. LUNGS: Elevation of right hemidiaphragm. Atelectatic changes in the right lung base unchanged. No new infiltrate is seen. No evidence of pleural effusions. MEDIASTINUM AND CARDIOVASCULAR STRUCTURES: Cardiac silhouette not enlarged. Central airways and mediastinal contour are unremarkable. BONES AND SOFT TISSUES: Stable soft tissues and osseous structures. RAD/Chest 1 View (Portable) IMPRESSION: No significant change. No new infiltrate is seen. Electronically Signed: Beni Correa MD at 16:22 EDT ,
[2023-08-09 15:54] LABS: Absolute Neutrophil Count 14.5 X10^3/uL (2.0-7.7); Basophil# 0.05 X10^3/uL; Basophil% 0.3 % (0-1); Eosinophil# 0.13 X10^3/uL; Eosinophils% 0.8 % (0-5); Hematocrit 43.9 % (40-54); Hemoglobin 13.8 g/dL (13.0-16.5); Lymphocyte % 9.3 % (19-41); Mean Corp Hgb Conc 31.4 g/dL (32-36); Mean Corpuscular Hgb 27.5 pg (27.0-32.0); Mean Corpuscular Volume 87.5 fL (80-94); Mean Platelet Vol. 10.6 fl (6.2-12.0); Monocyte# 0.88 X10^3/uL; Monocyte% 5.1 % (0-10); NRBC Flagged by Analyzer 0 % (0-5); Neutrophil # 14.48 X10^3/uL (2.7-7.7); Neutrophil % 84.1 % (47-70); Platelet Count 239 K/mm3 (150-450); RBC Distribution Width SD 44.7 fl (35.1-43.9); Red Blood Count 5.02 M/mm3 (4.6-6.2); White Blood Count 17.2 K/mm3 (4.4-11.0)
[2023-08-09 16:12] LABS: AST(SGOT) 20 U/L (15-37); Alanine Aminotransfer ALT/SGPT 19 U/L (16-61); Albumin, Serum 3.2 g/dL (3.2-5.0); Alkaline Phosphatase 129 U/L (45-117); Anion Gap 4 (5-15); BUN 16 mg/dL (7-18); BUN/Creat Ratio 11.3 RATIO (10-20); Bilirubin, Direct 0.16 mg/dL (0.00-0.30); Calcium,Total 9.3 mg/dL (8.5-10.1); Chloride 106 mmol/L (98-107); Creatinine, Serum 1.41 mg/dL (0.70-1.30); EST Glomerular Filtration Rate 54 mL/min (>60); Est Glom Filt Rate - Afr Amer 65 mL/min (>60); Estimated Creatinine Clearance 54.65 ml/min; Globulin 4.8 g/dL (2.2-4.2); Glucose 65 mg/dL (74-106); Lactic Acid 1.5 mmol/L (0.4-1.9); Potassium 4.2 mmol/L (3.5-5.1); Sodium Level 142 mmol/L (136-145); Troponin-I HS 15 pg/mL (3.0-78.0)
[2023-08-09 16:21] LABS: Bacteria 0 SEEN /hpf (None Seen); Mucous, Urine 0 SEEN /hpf (<or=2+); Red Blood Cells-Urine 0 SEEN /hpf (0-5); White Blood Cells 0 SEEN /hpf (0-5)
[2023-08-09 16:22] LABS: Color, Urine Yellow (Yellow); Glucose, Dipstick Normal (Normal); Ketone-Dipstick Negative (Negative); Leukocyte Esterase-Dipstick Negative /ul (Negative); Nitrite-Dipstick Negative (Negative); Occult Blood-Urine 10 /ul (Negative); Protein-Dipstick 30 mg/dl (Negative); Urine Bilirubin Dipstick Negative (Negative); Urine Clarity Clear (Clear); Urine Urobilinogen Normal (Normal)
[2023-08-09 16:27] LABS: Squamous Epithelial Cells - UA 0-5 SEEN /hpf (0-5)
--- NOTE | 2023-08-09 16:31 | CT_ITS ---
STUDY: CT ABDOMEN AND PELVIS WITH CONTRAST - URINARY TRACT REASON FOR EXAM: Male, 63 years old. Abdominal pain vomiting RADIATION DOSAGE (If Supplied By Facility): CTDIvol = ( 18.74 ) mGy, DLP = ( 1462.54 ) mGycm TECHNIQUE: IV 100mL Isovue-300 was administered. Transaxial images were obtained from the dome of the diaphragm to the symphysis pubis in the arterial, nephrographic and excretory phases. Multiplanar coronal and sagittal images were reformatted. Individualized Dose Optimization Techniques Were Used For This CT. COMPARISON: Prior exam of 03/29/2023. FINDINGS: Atelectatic changes in the right lower lung. The visualized portions of the heart are within normal limits. The dome of the liver is not entirely included on this exam. No focal lesion is definitely identified. Significant artifacts. No definite gallstones. Normal spleen. Normal pancreas. Normal bilateral adrenal glands. Persistent 8 mm stone in the left ureterovesical junction without evidence of hydronephrosis. Left extrarenal pelvis. Small bilateral renal cysts appears to be simple and unchanged suboptimally evaluated due to motion. No further follow-up exam is needed Normal visualized stomach. Normal in caliber small bowel loops. No evidence of acute diverticulitis. The appendix is visualized and appears normal. Mild atherosclerotic calcifications of the abdominal aorta without evidence of aneurysm No retroperitoneal adenopathy. Normal urinary bladder. Benign inguinal hernias larger on the left side with bulging small bowel loop in the left inguinal hernia without evidence of obstruction. Degenerative changes of the spine. CT/Abdomen/Pelvis W IV Cont ONLY IMPRESSION: 1. Persistent nonobstructing left renal stone without evidence of hydronephrosis. 2. No focal acute inflammatory process. 3. Left inguinal hernia with bulging small bowel loop without evidence of bowel obstruction.. Electronically Signed: Beni Correa MD at 17:26 EDT ,
[2023-08-09] MEDS: Ondansetron 4 MG/2 ML Vial IV (16:48)
[2023-08-09] MEDS: Dextrose 50%-Water 25 GM/50 ML DISP.SYRIN IV (16:48)
--- NOTE | 2023-08-09 19:29 | HP.PCM.HOS_ITS ---
HPI - General General Date of Admission: 08/09/23 Date of Service: 08/09/23 Chief Complaint: Generalized weakness HPI Narrative REA HANNA, is a 63 M who presents to the emergency room at [facility] with complaint of generalized weakness and inability to perform ADLs and IADLs since he returned home from the detention. It appears that the patient was discharged from [facility] on 07/30/2023 to home in stead of a snf facility, patient has had a history of multiple hospitalizations and at times has refused to go to a snf facility. The patient and the patient's tell me that the patient was recently in an extended care facility but was either discharge from the extended care facility requested to be discharged home-is not clear from talking with him what happened. I do not see from his medical record here that the patient was discharged to an ECF the last time he was in the hospital approximately 2 weeks ago. Work-up in the emergency room included a CBC which showed an elevated white blood cell count of 17.2, patient's creatinine was elevated at 1.41, urinalysis was unremarkable, CT of the abdomen and pelvis showed a persistent nonobstructing left renal stone without evidence of hydronephrosis and a left inguinal hernia without evidence of bowel obstruction, chest x-ray show no significant change from his previous chest x-ray. Patient will be placed in observation [facility] on [facility], PT and OT will see the patient, he will likely need placement in a snf facility for at least short-term rehab services. The etiology of the patient's elevated white blood cell count is not apparent at this time, patient is afebrile and does not look toxic, I will refrain from administering antibiotics at this time. [facility] Medical History CELESTE (acute kidney injury) Ambulates with cane Amputation of one or more toes Anxiety Anxiety and depression Arrhythmia Arthritis Aspiration into airway Aspiration pneumonia Atherosclerotic heart disease of [place] coronary artery without angina pectoris Back pain Back spasm Bilateral leg weakness Blind left eye Blister (nonthermal), left foot, initial encounter Bronchiectasis with (acute) exacerbation Cardiology follow-up encounter Chronic cough Chronic respiratory failure with hypoxia CKD (chronic kidney disease) COPD (chronic obstructive pulmonary disease) Coronary artery disease CPAP (continuous positive airway pressure) dependence Debility, unspecified Decubitus ulcer limited to breakdown of skin (stage 2) Depression Diabetes Essential hypertension Gastric reflux GERD (gastroesophageal reflux disease) High cholesterol History of aspiration pneumonia History of diabetes mellitus History of echocardiogram History of edema History of gout History of heart attack History of non-ST elevation myocardial infarction (NSTEMI) (08/2016) History of pain when walking History of steroid therapy History of stress test Hyperglycemia due to type 2 diabetes mellitus Hypertension Insulin dependent diabetes mellitus Irregular heart beat Kidney disease Kidney stones Kidney stones Leg pain, right Leukocytosis Low back pain Memory impairment Migraines Mood disorder Myocardial infarct Non-smoker Noncompliance by declining intervention or support On home oxygen therapy Peripheral vascular occlusive disease Pneumonia Prostate disease Pulmonary nodule, left Recurrent falls Right ankle pain Right foot pain Shortness of breath on exertion Silent aspiration Sleep apnea Tremor Type 2 diabetes mellitus Type 2 diabetes mellitus with diabetic polyneuropathy Ulcer of left foot, limited to breakdown of skin 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 Wears glasses Wound of left lower extremity Home Medications acetaminophen 500 mg tablet 1,000 mg PO Q24H PRN PAIN 02/11/21 [History Last Taken 08/08/23] aspirin 81 mg tablet,delayed release (Adult Aspirin Regimen) 81 mg PO DAILY HEART HEALTH 11/05/21 [History Last Taken 08/09/23] peg [id number] 1 %-0.2 %-0.2 % eye drops (Artificial Tears ([id number])) 2 drp EACH EYE Q1H PRN DRY EYES #0 mL 11/14/21 [Rx Last Taken 06/04/23] gauze bandage 4 X 4 (Bordered Gauze) #14 ea 07/03/22 [Rx Last Taken Unknown] walker (Ultra-Light Rollator [facility]) #1 ea 07/21/22 [Rx Last Taken Unknown] pen needle, diabetic 33 gauge x 5/16 #200 ea 12/02/22 [Rx Last Taken Unknown] fluoxetine 20 mg capsule 20 mg PO DAILY ANXIETY 03/23/23 [History Last Taken 08/09/23] melatonin 3 mg tablet 3 mg PO QHS INSOMNIA 03/23/23 [History Last Taken 08/08/23] amlodipine 2.5 mg tablet 2.5 mg PO DAILY BLOOD PRESSURE 05/25/23 [History Last Taken 08/08/23] atorvastatin 80 mg tablet 80 mg PO QHS CHOLESTEROL 05/25/23 [History Last Taken 08/08/23] buspirone 7.5 mg tablet 7.5 mg PO TID ANXIETY 05/25/23 [History Last Taken 08/09/23] carvedilol 12.5 mg tablet 25 mg PO BID HEART 05/25/23 [History Last Taken 08/09/23] finasteride 5 mg tablet 5 mg PO DAILY PROSTATE 05/25/23 [History Last Taken 08/09/23] fluoxetine 40 mg capsule 40 mg PO DAILY ANXIETY 05/25/23 [History Last Taken 08/09/23] hydroxyzine HCl 25 mg tablet 25 mg PO QHS PRN ANXIETY 05/25/23 [History Last Taken 08/09/23] losartan 50 mg tablet 50 mg PO DAILY BLOOD PRESSURE 05/25/23 [History Last Taken 08/09/23] pantoprazole 40 mg tablet,delayed release 40 mg PO DAILY ACID REFLUX 05/25/23 [History Last Taken 08/09/23] trazodone 150 mg tablet 150 mg PO QHS INSOMNIA 05/25/23 [History Last Taken 08/08/23] clopidogrel 75 mg tablet 75 mg PO DAILY BLOOD THINNER #30 tabs 05/28/23 [Rx Last Taken 08/09/23] isosorbide mononitrate 30 mg tablet,extended release 24 hr 30 mg PO DAILY HEART #30 tabs 05/28/23 [Rx Last Taken 08/09/23] menthol 0.44 %-zinc oxide 20.6 % topical ointment (Calmoseptine) 1 applic topical BID skin irritation #0 grams 06/08/23 [Rx Last Taken 08/08/23] pregabalin 75 mg capsule 75 mg PO BID pain #10 caps 06/08/23 [Rx Last Taken 08/09/23] insulin glargine-yfgn 100 unit/mL (3 mL) subcutaneous pen 25 unit (0.25 mL) subcut BID diabetes #0 mL 07/15/23 [Rx Last Taken 08/09/23] insulin lispro 100 unit/mL subcutaneous pen (Humalog KwikPen (U-100) Insulin) 15 unit (0.15 mL) subcut TIDAC diabetes #0 mL 07/15/23 [Rx Last Taken 08/09/23] insulin lispro 100 unit/mL subcutaneous pen (Humalog KwikPen (U-100) Insulin) See Protocol subcut ACHS #0 mL 07/15/23 [Rx Last Taken 08/09/23] Wheelchair #1 ea 07/23/23 [Rx Last Taken Unknown] albuterol sulfate 90 mcg/actuation aerosol inhaler 2 puff inhalation Q4H PRN SOB 07/27/23 [History Last Taken Unknown] docusate sodium 100 mg capsule 100 mg PO TID PRN constipation 07/27/23 [History Last Taken Unknown] hydroxyzine HCl 10 mg tablet 10 mg PO TID 07/27/23 [History Last Taken 08/09/23] Lift Chair #1 ea 08/06/23 [Rx Last Taken Unknown] Allergy/AdvReac Type Severity Reaction Status Date / Time allopurinol AdvReac Vomiting Verified 08/09/23 19:48 Influenza Virus Vaccines AdvReac Vomiting Verified 08/09/23 19:48 pneumococcal vaccine AdvReac Vomiting Verified 08/09/23 19:48 Family History Mother Diabetes Heart disease CHF Father Heart disease OH/CAD Myocardial infarction Surgical History H/O lithotripsy History of angioplasty of peripheral vessel (2016) History of angioplasty of peripheral vessel History of ankle surgery History of cardiac catheterization History of coronary artery stent placement (08/2016) History of coronary artery stent placement History of esophagogastroduodenoscopy (EGD) History of left heart catheterization (11/15/17) History of thyroid surgery Hx of lithotripsy Hx of surgery to heart and great vessels, presenting hazards to health Hx of surgical procedure Hx of thyroidectomy Hx of toe surgery Hx of toe surgery PEG (percutaneous endoscopic gastrostomy) status Social History household members: spouse housing: apartment Smoking Status: Never smoker alcohol intake: never substance use type: does not use ROS Constitutional Constitutional: Reports fatigue and weakness; Denies anorexia, change in weight, fever(s) or night sweats Eyes Eyes: Denies blurry vision, change in vision, discharge from eye(s) or eye pain Cardiovascular Cardiovascular: Denies chest pain, claudication, dyspnea on exertion, edema, lightheadedness or palpitations Respiratory/Chest Respiratory/Chest: Denies cough, hemoptysis, shortness of breath at rest or shortness of breath with exertion Gastrointestinal Gastrointestinal: Denies abdominal pain, constipation, diarrhea, hematemesis, hematochezia, melena, nausea or vomiting Genitourinary Genitourinary: Denies dysuria, hematuria, urinary frequency, urinary hesitancy, urinary incontinence or urinary urgency Musculoskeletal Musculoskeletal: Denies back pain, joint pain, joint stiffness, joint swelling, myalgias or neck pain Neurologic Neurologic: Denies abnormal gait, abnormal speech, dizziness, focal weakness, headache(s), loss of vision, numbness, other visual disturbances, paresthesias, syncope or tingling Psychiatric Psychiatric: Denies anxiety, cognitive impairment, depression, irritability, mo od swings or suicidal ideation Endocrine Endocrinology: Denies change in body appearance, cold intolerance, excessive sweating, heat intolerance, polydipsia or polyuria Hematologic/Lymphatic Hematologic/Lymphatic: Denies none, anemia, easy bleeding, easy bruising or lymphadenopathy Allergic/Immunologic Allergic/Immunologic: Denies rhinitis, urticaria, eczemia or asthma Vital Signs Vital Signs Vital Signs: 08/09/23 15:00 08/09/23 15:04 08/09/23 18:09 Temperature 97.9 F 97.9 F 97.9 F Temperature Source Temporal Temporal Oral Pulse Rate 80 82 71 Respiratory Rate 20 H 20 H 22 H Blood Pressure 150/108 H 150/108 H 140/72 H Blood Pressure Mean 122 122 94 Pulse Ox 96 98 96 Oxygen Delivery Method Room Air Room Air Room Air Weight Weight: 125.3 kg Body Mass Index (BMI) 39.6 Physical Exam Const alert and no apparent distress Constitutional Narrative: Patient is a poor informant, he appears older than his stated age, he appears in no distress General Appearance: cooperative, well kempt and well developed Orientation / Consciousness: awake, oriented to person, oriented to place and oriented to time HEENT normocephalic and hearing grossly normal bilaterally HEENT Narrative: Mucous membranes are dry Eyes PERRL, EOMs intact bilaterally and conjunctivae normal Neck supple, no JVD, thyroid normal and no carotid bruits General: trachea midline Resp normal respiratory effort, no retractions, no use of accessory muscles and clear to auscultation bilaterally Auscultation: Negative for rales, rhonchi or wheezes Cardio regular rate, regular rhythm, S1 normal heart sound, S2 normal heart sound, no murmurs, no rub and no gallops GI normal to inspection, nondistended, normoactive bowel sounds, soft to palpation, non-tender and non-distended Neuro CN's II-XII intact bilaterally, moves all extremities, no focal motor deficits and no sensory deficits noted Sensorium / Orientation: awake, alert, oriented to person and oriented to place Speech: speech normal Psych affect normal Results Lab / Micro Data 08/09/23 15:40 08/09/23 15:40 Labs: Laboratory Results - last 24 hr 08/09/23 15:40: WBC 17.2 H, RBC 5.02, Hgb 13.8, Hct 43.9, MCV 87.5, MCH 27.5, MCHC 31.4 L, RDW Std Deviation 44.7 H, RDW Coeff of James 14.0, Plt Count 239, MPV 10.6, Immature Gran % (Auto) 0.400, Neut % (Auto) 84.1 H, Lymph % (Auto) 9.3 L, [place] % (Auto) 5.1, Eos % (Auto) 0.8, Baso % (Auto) 0.3, Absolute Neuts (auto) 14.5 H, Absolute Lymphs (auto) 1.60, Nucleated RBC % 0, Sodium 142, Potassium 4.2, Chloride 106, Carbon Dioxide 32.0, Anion Gap 4 L, BUN 16, Creatinine 1.41 H , Estim Creat Clear Calc 54.65, Est GFR (MDRD) Af Amer 65, Est GFR (MDRD) Non-Af 54 L, BUN/Creatinine Ratio 11.3, Glucose 65 L, Lactic Acid 1.5, Calcium 9.3, Total Bilirubin 0.40, Direct Bilirubin 0.16, AST 20, ALT 19, Alkaline Phosphatase 129 H, Troponin I High Sens 15, Total Protein 8.0, Albumin 3.2, Globulin 4.8 H 08/09/23 16:17: Urine Color Yellow, Urine Clarity Clear, Urine pH 6.0, Ur Specific [place] 1.020, Urine Protein 30 H, Urine Glucose (UA) Normal, Urine Ketones Negative, Urine Occult Blood 10 H, Urine Nitrite Negative, Urine Bilirubin Negative, Urine Urobilinogen Normal, Ur Leukocyte Esterase Negative, Urine RBC 0 SEEN, Urine WBC 0 SEEN, Ur Squamous Epith Cells 0-5 SEEN, Urine Bacteria 0 SEEN, Urine Mucus 0 SEEN Radiology Impression Chest X-Ray 08/09/23 15:45 IMPRESSION: No significant change. No new infiltrate is seen. Electronically Signed: Beni Correa MD at 16:22 EDT , Abdomen/Pelvis CT 08/09/23 16:31 IMPRESSION: 1. Persistent nonobstructing left renal stone without evidence of hydronephrosis. 2. No focal acute inflammatory process. 3. Left inguinal hernia with bulging small bowel loop without evidence of bowel obstruction.. Electronically Signed: Beni Correa MD at 17:26 EDT , Assessment & Plan Assessment/Plan (1) Generalized weakness: PLAN: Plan 1. Acute on chronic debility-secondary to multiple medical problems, patient [facility], he will be seen by PT and OT, he will need placement in a snf facility for at least short-term rehab services. I do not feel the patient's family is able to care for him at home at this time. #2 leukocytosis-etiology unclear, patient does not have an obvious source of infection, he does not look toxic, he is afebrile, labs will be monitored #3 type 2 diabetes-patient's blood sugar will be monitored, sliding scale insu soy will be administered as indicated, he will remain on his basal insulin at a reduced dose, he will receive Humalog with meals, I will reduce it to 10 units 3 times daily #4 chronic anxiety/depression-patient will remain on his Prozac, BuSpar, and hydroxyzine-monitor, evaluate, assess, and treat #5 chronic left foot wound-secondary to diabetic neuropathy, wound care will see the patient, I did not examine the patient's wound during my evaluation today. #6 coronary artery disease-patient will remain on his home medications, monitor, evaluate, assess, and treat Total clinical time spent by myself addressing the patient's medical issues, reviewing all of his data, and collaborating with patient's care team: 55 minutes Charges/Coding Visit Charges Inpatient E&M: 95134 Init Hosp L2
[2023-08-09] MEDS: Heparin Injection (Vial) 5,000 UNIT/ML VIAL 5000 UNIT SC (21:44)
[2023-08-09] MEDS: traZODone 50 MG Tablet 150 MG PO (21:45)
[2023-08-09] MEDS: busPIRone 15 MG TABLET 7.5 MG PO (21:45)
[2023-08-09] MEDS: Atorvastatin Calcium 80 MG Tablet PO (21:46)
[2023-08-09] MEDS: Pregabalin 75 MG Capsule PO (21:55)
[2023-08-09] MEDS: 0.9% Saline Lock 10 ML Syringe IV (21:56)
[2023-08-09] MEDS: 0.9% Normal Saline (1000mL) 1,000 ML 75 ML IV (21:58)
[2023-08-09 21:59] LABS: Bedside Glucose 99 mg/dL (74-106)
[2023-08-10] VITALS (12 sets, daily range): BP systolic 122–204; BP diastolic 54–88; PULSE 53–69; RESP 14–18; TEMP 35.8–37.2; O2SAT 95–100
[2023-08-10 06:15] LABS: Bedside Glucose 179 mg/dL (74-106)
[2023-08-10] MEDS: Insulin Lispro 100 UNIT/ML INSULN.PEN SC ×3 (06:17→16:33)
[2023-08-10] MEDS: busPIRone 15 MG TABLET 7.5 MG PO ×3 (06:17→21:16)
[2023-08-10] MEDS: Insulin Lispro 100 UNIT/ML INSULN.PEN 10 UNIT SC ×3 (06:18→16:32)
[2023-08-10 06:44] LABS: Absolute Lymphocyte Count 2.44 X10^3/uL (0.83-4.51); Absolute Neutrophil Count 8.8 X10^3/uL (2.0-7.7); Basophil# 0.04 X10^3/uL; Basophil% 0.3 % (0-1); Eosinophil# 0.06 X10^3/uL; Eosinophils% 0.5 % (0-5); Hematocrit 40.3 % (40-54); Hemoglobin 12.6 g/dL (13.0-16.5); Lymphocyte # 2.44 X10^3/ul (0.83-4.51); Lymphocyte % 19.3 % (19-41); Mean Corp Hgb Conc 31.3 g/dL (32-36); Mean Corpuscular Hgb 27.4 pg (27.0-32.0); Mean Corpuscular Volume 87.6 fL (80-94); Mean Platelet Vol. 11.6 fl (6.2-12.0); Monocyte# 1.25 X10^3/uL; Monocyte% 9.9 % (0-10); NRBC Flagged by Analyzer 0 % (0-5); Neutrophil # 8.84 X10^3/uL (2.7-7.7); Neutrophil % 69.7 % (47-70); POSITIVE COUNT YES; Platelet Count 148 K/mm3 (150-450); RBC Distribution Width CV 14.1 % (11.6-14.6); RBC Distribution Width SD 45.1 fl (35.1-43.9); White Blood Count 12.7 K/mm3 (4.4-11.0)
[2023-08-10 06:49] LABS: Differential Indicated SCAN CRITERIA MET
[2023-08-10 07:07] LABS: Differential Comment SCANNED; Platelet Estimate ADEQUATE (ADEQ)
[2023-08-10 07:22] LABS: Anion Gap 5 (5-15); BUN 22 mg/dL (7-18); BUN/Creat Ratio 14.5 RATIO (10-20); Calcium,Total 8.6 mg/dL (8.5-10.1); Chloride 109 mmol/L (98-107); Creatinine, Serum 1.52 mg/dL (0.70-1.30); EST Glomerular Filtration Rate 49 mL/min (>60); Est Glom Filt Rate - Afr Amer 60 mL/min (>60); Estimated Creatinine Clearance 50.69 ml/min; Glucose 164 mg/dL (74-106); Potassium 4.5 mmol/L (3.5-5.1); Sodium Level 135 mmol/L (136-145)
[2023-08-10] MEDS: Aspirin E.C. 81 MG Tablet PO (09:12)
[2023-08-10] MEDS: Carvedilol 25 MG Tablet PO ×2 (09:12→16:34)
[2023-08-10] MEDS: Heparin Injection (Vial) 5,000 UNIT/ML VIAL 5000 UNIT SC ×2 (09:13→21:17)
[2023-08-10] MEDS: Losartan Potassium 50 MG Tablet PO (09:13)
[2023-08-10] MEDS: amLODIPine 2.5 MG Tablet PO (09:16)
[2023-08-10] MEDS: Isosorbide Mononitrate 30 MG Tablet PO (09:16)
[2023-08-10] MEDS: Clopidogrel Bisulfate 75 MG Tablet PO (09:16)
[2023-08-10] MEDS: Fluoxetine HCl 40 MG CAPSULE PO (09:17)
[2023-08-10] MEDS: FLUoxetine 20 MG Capsule PO (09:17)
[2023-08-10] MEDS: Finasteride 5 MG Tablet PO (09:17)
[2023-08-10] MEDS: Pantoprazole Sodium 40 MG Tablet PO (09:17)
[2023-08-10] MEDS: Pregabalin 75 MG Capsule PO ×2 (09:29→21:17)
[2023-08-10] MEDS: Menthol/Lanolin/Calamine/Znox 113 GM Tube 1 APPLIC TOPICAL ×2 (09:30→21:16)
[2023-08-10] MEDS: Miconazole Nitrate 43 GM Bottle 1 APPLIC TOPICAL ×2 (09:30→21:16)
--- NOTE | 2023-08-10 10:10 | CASEMGMT ---
A list of SNF providers including quality and resource use data and consistent with the patient?s preferred geographic region, medical needs, and insurance network was created in [employer] Guide. This list was provided to the SW. Nuria Singh Discharge Planning Asst.
--- NOTE | 2023-08-10 11:20 | WOUNDNOTE ---
wound photo: left plantar heel
[2023-08-10] MEDS: 0.9% Normal Saline (1000mL) 1,000 ML 75 ML IV (11:23)
[2023-08-10 11:45] LABS: Bedside Glucose 229 mg/dL (74-106)
--- NOTE | 2023-08-10 11:59 | PCM.PN.HOSP ---
Subjective Subjective Doing well, discussed with him the need to consider going to other [facility] Objective Data Objective Data Vital Signs: Vital Signs Temp Pulse Resp BP Pulse Ox O2 Del Method O2 Flow Rate 98.9 F 56 L 16 138/69 H 99 Nasal Cannula 2 08/10/23 06:00 08/10/23 10:00 08/10/23 10:00 08/10/23 06:00 08/10/23 10:00 08/10/23 10:00 08/10/23 10:00 Oxygen Flow Rate (L/min) 2 Oxygen Delivery Method Nasal Cannula Weight: 269 lb 6.478 oz Body Mass Index (BMI) 38.6 Intake & Output: Intake and Output for Last 24 Hours 08/09/23 08/10/23 08/11/23 03:59 03:59 03:59 Intake Total 75 / 75 1050 / 1050 Balance 75 / 75 1050 / 1050 Lab / Micro Data 08/10/23 06:08 08/10/23 06:08 Labs: Laboratory Results - last 24 hr 08/09/23 15:40: WBC 17.2 H, RBC 5.02, Hgb 13.8, Hct 43.9, MCV 87.5, MCH 27.5, MCHC 31.4 L, RDW Std Deviation 44.7 H, RDW Coeff of James 14.0, Plt Count 239, MPV 10.6, Immature Gran % (Auto) 0.400, Neut % (Auto) 84.1 H, Lymph % (Auto) 9.3 L, [place] % (Auto) 5.1, Eos % (Auto) 0.8, Baso % (Auto) 0.3, Absolute Neuts (auto) 14.5 H, Absolute Lymphs (auto) 1.60, Nucleated RBC % 0, Sodium 142, Potassium 4.2, Chloride 106, Carbon Dioxide 32.0, Anion Gap 4 L, BUN 16, Creatinine 1.41 H, Estim Creat Clear Calc 54.65, Est GFR (MDRD) Af Amer 65, Est GFR (MDRD) Non-Af 54 L, BUN/Creatinine Ratio 11.3, Glucose 65 L, Lactic Acid 1.5, Calcium 9.3, Total Bilirubin 0.40, Direct Bilirubin 0.16, AST 20, ALT 19, Alkaline Phosphatase 129 H, Troponin I High Sens 15, Total Protein 8.0, Albumin 3.2, Globulin 4.8 H 08/09/23 16:17: Urine Color Yellow, Urine Clarity Clear, Urine pH 6.0, Ur Specific [place] 1.020, Urine Protein 30 H, Urine Glucose (UA) Normal, Urine Ketones Negative, Urine Occult Blood 10 H, Urine Nitrite Negative, Urine Bilirubin Negative, Urine Urobilinogen Normal, Ur Leukocyte Esterase Negative, Urine RBC 0 SEEN, Urine WBC 0 SEEN, Ur Squamous Epith Cells 0-5 SEEN, Urine Bacteria 0 SEEN, Urine Mucus 0 SEEN 08/09/23 21:40: POC Glucose 99 08/10/23 05:58: POC Glucose 179 H 08/10/23 06:08: WBC 12.7 H, RBC 4.60, Hgb 12.6 L, Hct 40.3, MCV 87.6, MCH 27.4, MCHC 31.3 L, RDW Std Deviation 45.1 H, RDW Coeff of James 14.1, Plt Count 148 L, MPV 11.6, Immature Gran % (Auto) 0.300, Neut % (Auto) 69.7, Lymph % (Auto) 19.3, [place] % (Auto) 9.9, Eos % (Auto) 0.5, Baso % (Auto) 0.3, Absolute Neuts (auto) 8.8 H, Absolute Lymphs (auto) 2.44, Nucleated RBC % 0, Differential Comment SCANNED, Platelet Estimate ADEQUATE, Sodium 135 L, Potassium 4.5, Chloride 109 H, Carbon Dioxide 21.0, Anion Gap 5, BUN 22 H, Creatinine 1.52 H, Estim Creat Clear Calc 50.69, Est GFR (MDRD) Af Amer 60, Est GFR (MDRD) Non-Af 49 L, BUN/Creatinine Ratio 14.5, Glucose 164 H, Calcium 8.6 08/10/23 11:20: POC Glucose 229 H Radiography Diagnostic Testing: Radiology Impression Chest X-Ray 08/09/23 15:45 IMPRESSION: No significant change. No new infiltrate is seen. Electronically Signed: Beni Correa MD at 16:22 EDT , Abdomen/Pelvis CT 08/09/23 16:31 IMPRESSION: 1. Persistent nonobstructing left renal stone without evidence of hydronephrosis. 2. No focal acute inflammatory process. 3. Left inguinal hernia with bulging small bowel loop without evidence of bowel obstruction.. Electronically Signed: Beni Correa MD at 17:26 EDT , Physical Exam Narrative General: Alert, Oriented x3, Cooperative, No apparent distress HEENT: Atraumatic, PERRLA, EOMI, Normocephalic Oral: Dry mucosa Neck: Supple, No JVD Lungs: Diminished, Normal air movement, No rhonchi, No wheeze, No rales Cardiovascular: Regular rate, Regular Rhythm, Normal S1, Normal S2, No murmurs Abdomen: Soft, Non Tender, Non-Distended, No Hepato-splenomegaly Extremities: No edema, Capillary Refill Less than 3 Seconds Skin: Known left foot ulceration, currently dressed left foot is in a boot Musculoskeletal: No Tenderness to Palpation of Joints or Extremities Neurological: Cranial nerves II-XII grossly intact, Motor Exam 5/5 strength throughout, Sensory exam intact to light touch and pain Psych/Mental Status: Flat Assessment & Plan Assessment/Plan (1) Generalized weakness: PLAN: Plan 1. Failure to thrive with increasing weakness and inability to complete ADLs/chronic respiratory failure ? Continue with his baseline oxygen of 2 L ? He does not qualify for TCU so I did discuss with him the need to pick a different SNF ? PT/OT 2. Chronic diastolic CHF/CAD/peripheral artery disease status post stent HTN/HLD ? Blood pressure stable, will monitor and make adjustments ? Resume his home medications 3. DM2/diabetic foot ulcer left heel ? Can continue with his home insulin regimen ? Accu-Cheks AC at bedtime ? Sliding scale insulin, will monitor and make adjustments as necessary ? We will consult wound care to monitor his left heel wound 4. GERD ? Stable ? Continue with PPI 5. Anxiety/depression ? Stable ? Continue with his home medications DVT: Heparin Charges/Coding Visit Charges Inpatient E&M: 76635 Subs Hosp L2
--- NOTE | 2023-08-10 12:40 | CASEMGMT ---
ALICE PHOENIX Face to Face with patient for initial transition planning/care coordination assessment. ALICE PHOENIX introduced self and role at [facility]. Patient sitting in chair, alert and oriented, significant other at bedside. Patient willing to participate in assessment and is able to answer all questions appropriately. Care providers, pharmacy, and demographics verified. Patient wishes to discharge to a SNF for additional therapy. A list of SNF providers including quality and resource use data and consistent with the patient?s preferred geographical region, medical needs, and insurance network were provided from the [employer] Guide. Patient prefers [facility]. Patient states he has no further needs or concerns at this time. ALICE PHOENIX udpated SW regarding preferences. CM to follow for discharge planning needs that may arise. PCP:Kevin Specialists: Deshawn, surgical processor; Yannick, rn military; Friend, GI; DAVIN, credit coordinator Preferred Pharmacy: [facility] Insurance: My care [facility] Prescription Benefit: yes Living Will/HPOA: yes, significant other She Gipson LNOK: significant other Living Arrangements: Patient lives with significant other in a first floor apartment with no steps to enter. Significant other assists patient with ADLs. Transportation: significant other DME/HHC: Patient has shower chair, raised toilet, rollator, wheelchair, pulse ox, and home oxygen through [facility] at 4lpm with portability. Patient had previously been to TCU and [place]. Patient has had [facility] in the past. Disposition Plan: Patient to discharge to [facility], pending acceptance and precert. Becca BACA, RN, CM
--- NOTE | 2023-08-10 12:52 | CASEMGMT ---
Discharge Planning Referral sent to [facility] via [facility]. Nuria Singh, Discharge Planning Asst.
--- NOTE | 2023-08-10 14:27 | CASEMGMT ---
Discharge Planning Patient has [facility] accepted by [facility]. SW aware. Nuria Singh, Discharge Planning Asst.
--- NOTE | 2023-08-10 16:16 | CASEMGMT ---
?Met with patient to complete GOMEZ form. GOMEZ form explained to (pt/pt?s ___) who voiced understanding and signed form. Original form placed in pt?s chart and copy provided to patient. Nuria Singh, Discharge Planning Asst.
[2023-08-10 16:56] LABS: Bedside Glucose 150 mg/dL (74-106)
[2023-08-10] MEDS: traZODone 50 MG Tablet 150 MG PO (21:17)
[2023-08-10] MEDS: Atorvastatin Calcium 80 MG Tablet PO (21:17)
[2023-08-10 22:20] LABS: Bedside Glucose 135 mg/dL (74-106)
[2023-08-11] MEDS: 0.9% Normal Saline (1000mL) 1,000 ML 75 ML IV (00:17)
--- NOTE | 2023-08-11 03:14 | NURSING ---
pt states he felt like his blood sugar was low. Result was 143 on accucheck. Snack given per request.
[2023-08-11 03:24] VITALS: BP 146/66; PULSE 60; RESP 18; TEMP 36.6; O2SAT 95
[2023-08-11 03:34] LABS: Bedside Glucose 135 mg/dL (74-106)
[2023-08-11] MEDS: busPIRone 15 MG TABLET 7.5 MG PO (05:29)
[2023-08-11 06:29] LABS: Absolute Lymphocyte Count 2.21 X10^3/uL (0.83-4.51); Absolute Neutrophil Count 6.1 X10^3/uL (2.0-7.7); Basophil# 0.05 X10^3/uL; Basophil% 0.5 % (0-1); Eosinophil# 0.13 X10^3/uL; Eosinophils% 1.4 % (0-5); Hemoglobin 11.2 g/dL (13.0-16.5); Lymphocyte # 2.21 X10^3/ul (0.83-4.51); Lymphocyte % 23.4 % (19-41); Mean Corp Hgb Conc 31.1 g/dL (32-36); Mean Corpuscular Hgb 27.3 pg (27.0-32.0); Mean Corpuscular Volume 87.8 fL (80-94); Mean Platelet Vol. 11.1 fl (6.2-12.0); Monocyte% 9.5 % (0-10); NRBC Flagged by Analyzer 0 % (0-5); Neutrophil # 6.11 X10^3/uL (2.7-7.7); Neutrophil % 64.8 % (47-70); Platelet Count 177 K/mm3 (150-450); RBC Distribution Width CV 14.2 % (11.6-14.6); RBC Distribution Width SD 45.7 fl (35.1-43.9); White Blood Count 9.4 K/mm3 (4.4-11.0)
[2023-08-11 07:03] LABS: Anion Gap 3 (5-15); BUN 18 mg/dL (7-18); BUN/Creat Ratio 14.9 RATIO (10-20); Calcium,Total 8.7 mg/dL (8.5-10.1); Chloride 108 mmol/L (98-107); Creatinine, Serum 1.21 mg/dL (0.70-1.30); EST Glomerular Filtration Rate 64 mL/min (>60); Est Glom Filt Rate - Afr Amer 78 mL/min (>60); Estimated Creatinine Clearance 63.68 ml/min; Glucose 176 mg/dL (74-106); Potassium 4.4 mmol/L (3.5-5.1); Sodium Level 141 mmol/L (136-145)
[2023-08-11] MEDS: Insulin Lispro 100 UNIT/ML INSULN.PEN 10 UNIT SC ×2 (07:51→11:31)
[2023-08-11] MEDS: Insulin Lispro 100 UNIT/ML INSULN.PEN SC (07:51)
[2023-08-11] MEDS: Carvedilol 25 MG Tablet PO (07:52)
[2023-08-11] MEDS: Aspirin E.C. 81 MG Tablet PO (07:52)
[2023-08-11 08:14] LABS: Bedside Glucose 176 mg/dL (74-106)
[2023-08-11 08:45] VITALS: BP 151/69; PULSE 56; RESP 18; TEMP 36.8; O2SAT 98
[2023-08-11] MEDS: Menthol/Lanolin/Calamine/Znox 113 GM Tube 1 APPLIC TOPICAL (09:29)
[2023-08-11] MEDS: Miconazole Nitrate 43 GM Bottle 1 APPLIC TOPICAL (09:30)
[2023-08-11] MEDS: Losartan Potassium 50 MG Tablet PO (09:30)
[2023-08-11] MEDS: Clopidogrel Bisulfate 75 MG Tablet PO (09:31)
[2023-08-11] MEDS: Isosorbide Mononitrate 30 MG Tablet PO (09:31)
[2023-08-11] MEDS: amLODIPine 2.5 MG Tablet PO (09:31)
[2023-08-11] MEDS: Finasteride 5 MG Tablet PO (09:32)
[2023-08-11] MEDS: Fluoxetine HCl 40 MG CAPSULE PO (09:32)
[2023-08-11] MEDS: FLUoxetine 20 MG Capsule PO (09:32)
[2023-08-11] MEDS: Pantoprazole Sodium 40 MG Tablet PO (09:32)
[2023-08-11] MEDS: Heparin Injection (Vial) 5,000 UNIT/ML VIAL 5000 UNIT SC (09:33)
[2023-08-11] MEDS: Insulin Glargine-YFGN 100 UNIT/ML Pen 15 UNIT SC (09:33)
[2023-08-11] MEDS: Pregabalin 75 MG Capsule PO (09:39)
--- NOTE | 2023-08-11 10:26 | PCM.PN.HOSP ---
Subjective Subjective Did not sleep very well last night but otherwise no issues Objective Data Objective Data Vital Signs: Vital Signs Temp Pulse Resp BP Pulse Ox O2 Del Method O2 Flow Rate 98.2 F 56 L 18 151/69 H 98 Nasal Cannula 2 08/11/23 08:45 08/11/23 08:45 08/11/23 08:45 08/11/23 08:45 08/11/23 08:45 08/11/23 08:45 08/11/23 08:45 Oxygen Flow Rate (L/min) 2 Oxygen Delivery Method Nasal Cannula Weight: 269 lb 6.478 oz Body Mass Index (BMI) 38.6 Intake & Output: Intake and Output for Last 24 Hours 08/10/23 08/11/23 08/12/23 03:59 03:59 03:59 Intake Total 75 / 75 3757.5 / 3757.5 240 / 240 Output Total 1850 / 1850 400 / 400 Balance 75 / 75 1907.5 / 1907.5 -160 / -160 Lab / Micro Data 08/11/23 05:15 08/11/23 05:15 Labs: Laboratory Results - last 24 hr 08/10/23 11:20: POC Glucose 229 H 08/10/23 16:31: POC Glucose 150 H 08/10/23 21:22: POC Glucose 135 H 08/11/23 03:14: POC Glucose 135 H 08/11/23 05:15: WBC 9.4, RBC 4.10 L, Hgb 11.2 L, Hct 36.0 L, MCV 87.8, MCH 27.3, MCHC 31.1 L, RDW Std Deviation 45.7 H, RDW Coeff of James 14.2, Plt Count 177, MPV 11.1, Immature Gran % (Auto) 0.400, Neut % (Auto) 64.8, Lymph % (Auto) 23.4, [place] % (Auto) 9.5, Eos % (Auto) 1.4, Baso % (Auto) 0.5, Absolute Neuts (auto) 6.1, Absolute Lymphs (auto) 2.21, Nucleated RBC % 0, Sodium 141, Potassium 4.4, Chloride 108 H, Carbon Dioxide 30.0, Anion Gap 3 L, BUN 18, Creatinine 1.21, Estim Creat Clear Calc 63.68, Est GFR (MDRD) Af Amer 78, Est GFR (MDRD) Non-Af 64, BUN/Creatinine Ratio 14.9, Glucose 176 H, Calcium 8.7 08/11/23 07:49: POC Glucose 176 H Physical Exam Narrative General: Alert, Oriented x3, Cooperative, No apparent distress HEENT: Atraumatic, PERRLA, EOMI, Normocephalic Oral: Dry mucosa Neck: Supple, No JVD Lungs: Diminished, Normal air movement, No rhonchi, No wheeze, No rales Cardiovascular: Regular rate, Regular Rhythm, Normal S1, Normal S2, No murmurs Abdomen: Soft, Non Tender, Non-Distended, No Hepato-splenomegaly Extremities: No edema, Capillary Refill Less than 3 Seconds Skin: Known left foot ulceration Musculoskeletal: No Tenderness to Palpation of Joints or Extremities Neurological: Cranial nerves II-XII grossly intact, Motor Exam 5/5 strength throughout, Sensory exam intact to light touch and pain Psych/Mental Status: Flat Assessment & Plan Assessment/Plan (1) Generalized weakness: PLAN: Plan 1. Failure to thrive with increasing weakness and inability to complete ADLs/chronic respiratory failure ? Continue with his baseline oxygen of 2 L ? He does not qualify for TCU so I did discuss with him the need to pick a different SNF ? PT/OT 2. Chronic diastolic CHF/CAD/peripheral artery disease status post stent HTN/HLD ? Blood pressure stable, will monitor and make adjustments ? Resume his home medications 3. DM2/diabetic foot ulcer left heel ? Can continue with his home insulin regimen ? Accu-Cheks AC at bedtime ? Sliding scale insulin, will monitor and make adjustments as necessary ? We will consult wound care to monitor his left heel wound 4. GERD ? Stable ? Continue with PPI 5. Anxiety/depression ? Stable ? Continue with his home medications DVT: Heparin Charges/Coding Visit Charges Inpatient E&M: 75309 Subs Hosp L2
[2023-08-11 10:27] VITALS: PULSE 56; RESP 18; O2SAT 94
--- NOTE | 2023-08-11 11:20 | CM.UR ---
Discharge Planning Precert has been recieved by Theresa. SW updated. Nuria Singh, Discharge Planning Asst.
[2023-08-11 11:40] LABS: Bedside Glucose 120 mg/dL (74-106)
[2023-08-11 11:46] VITALS: O2SAT 95
--- NOTE | 2023-08-11 12:13 | PCM.TXEXTCAR ---
Diet Diet Order/Speech Therapy: 08/09/23 20:20 Diet: Consistent Carb - Calorie Controlled Food consistency:: Regular Liquid Consistency:: Regular/Thin How many daily calories?: 1800 calorie Routine Orders/Code Status Routine Lab Work: CBC and BMP Code Status: Full Code Wound(s) left plantar heel: Wound Type: calloused over neuropathic wound Dressing Change: applied Mepilex bilateral buttocks: Wound Type: shearing left heel: Wound Type: Neuropathic/Diabetic Foot Ulcer Therapies Physical Therapy: Eval and Treat Occupational Therapy: Eval and Treat Problem/Diagnosis (1) Generalized weakness: Status: Acute Code(s): R53.1 - Weakness Plan 1. Failure to thrive with increasing weakness and inability to complete ADLs/chronic respiratory failure ? Continue with his baseline oxygen of 2 L ? He does not qualify for TCU so I did discuss with him the need to pick a different SNF ? PT/OT 2. Chronic diastolic CHF/CAD/peripheral artery disease status post stent HTN/HLD ? Blood pressure stable, will monitor and make adjustments ? Resume his home medications 3. DM2/diabetic foot ulcer left heel ? Can continue with his home insulin regimen ? Accu-Cheks AC at bedtime ? Sliding scale insulin, will monitor and make adjustments as necessary ? We will consult wound care to monitor his left heel wound 4. GERD ? Stable ? Continue with PPI 5. Anxiety/depression ? Stable ? Continue with his home medications DVT: Heparin Allergies/Procedures Done in Hospital Allergies allopurinol Adverse Reaction (Verified 08/09/23 19:48) Vomiting Influenza Virus Vaccines Adverse Reaction (Verified 08/09/23 19:48) Vomiting pneumococcal vaccine Adverse Reaction (Verified 08/09/23 19:48) Vomiting Procedures: None Type of Care/Length of Stay Estimated LOS: Convalescent Care Less Than 30 days Type of Care Needed: Skilled Rehab Potential: Fair Prognosis: Fair Additional Orders/Day of Discharge Day of Discharge: 08/11/23 Dietary and Speech Recommendations Dietitian Recommendations/Changes: continue 1800 calorie controlled consistent CHO diet Discharge Plan Admission Admit Date/Time: 08/09/23 18:12 Attending Provider: Gabe Mathew Primary Care Provider: Doretha Brown Consulting Providers: Rubio Miller Discharge Orders/Prescriptions Prescriptions: Continued aspirin [Adult Aspirin Regimen] 81 mg tablet,delayed release (DR/EC) 81 mg PO DAILY (DME) Ultra-Light Rollator Misc See Rx Instructions .Route Qty: 1 2RF Rx Instructions: As directed (DME) pen needle, diabetic 33 gauge x 5/16 needle See Rx Instructions .Route Qty: 200 3RF Rx Instructions: As directed melatonin 3 mg tablet 3 mg PO QHS fluoxetine 20 mg capsule 20 mg PO DAILY (DME) Lift Chair See Rx Instructions .Route .MEDSUPPLY Qty: 1 0RF Rx Instructions: As directed acetaminophen 500 MG tablet 1,000 mg PO Q24H PRN (Reason: PAIN ) Artificial Tears(zl-evyt-vlph) 1-0.2-0.2 % Drops 2 drp EACH EYE Q1H PRN (Reason: DRY EYES) Qty: 0 0RF (DME) gauze bandage [Bordered Gauze] 4 X 4 bandage See Rx Instructions .ROUTE .MEDSUPPLY Qty: 14 2RF Rx Instructions: Daily cleanse left foot wound with soap and water, dry and apply Betadine solution and apply clean dressing losartan 50 mg tablet 50 mg PO DAILY fluoxetine 40 mg capsule 40 mg PO DAILY trazodone 150 mg tablet 150 mg PO QHS carvedilol 12.5 mg tablet 25 mg PO BID amlodipine 2.5 mg tablet 2.5 mg PO DAILY pantoprazole 40 mg tablet,delayed release (DR/EC) 40 mg PO DAILY buspirone 7.5 mg tablet 7.5 mg PO TID hydroxyzine HCl 25 mg tablet 25 mg PO QHS PRN (Reason: ANXIETY ) atorvastatin 80 mg tablet 80 mg PO QHS finasteride 5 mg tablet 5 mg PO DAILY menthol-zinc oxide [Calmoseptine] 0.44-20.6 % Ointment 1 applic topical BID Qty: 0 0RF Protocol: *Topical Application Instructions APPLICATION INSTRUCTIONS: buttock pregabalin 75 mg Capsule 75 mg PO BID Qty: 10 0RF albuterol sulfate 90 mcg/actuation HFA aerosol inhaler 2 puff INHALATION Q4H PRN (Reason: SOB) Patient Comments: INHALE 2 PUFFS EVERY 4 TO 6 HOURS NEEDED FOR WHEEZING OR SHORTNESS OF BREATH, USE WITH SPACER docusate sodium 100 mg capsule 100 mg PO TID PRN (Reason: constipation) Patient Comments: TAKE 1 CAPSULE BY MOUTH THREE TIMES DAILY NEEDED for FOR CONSTIPATION for up to 5 (FIVE) days hydroxyzine HCl 10 mg tablet 10 mg PO TID Patient Comments: TAKE 1 TABLET BY MOUTH THREE TIMES DAILY insulin lispro [Humalog KwikPen Insulin] 100 unit/mL Insulin Pen See Protocol subcut ACHS Qty: 0 0RF Protocol: 4. Sliding Scale Insulin High-Med Dosing Condition: 150-199 mg/dl = 2 units Condition: 200-259 mg/dl = 4 units Condition: 260-324 mg/dl = 6 units Condition: 325-374 mg/dl = 8 units Condition: 375-409 mg/dl = 10 units Condition: 410-449 mg/dl = 11 units Condition: Greater than 449 call physician Protocol Text: - Use for Total Daily Dose of Insulin 56-80 units - Patient who are insulin resistant or septic HIGH MEDIUM DOSING ALGORITHM insulin lispro [Humalog KwikPen Insulin] 100 unit/mL Insulin Pen 15 unit subcut TIDAC Qty: 0 0RF insulin glargine-yfgn 100 unit/mL (3 mL) Insulin Pen 25 unit subcut BID Qty: 0 0RF clopidogrel 75 mg tablet 75 mg PO DAILY Qty: 30 1RF isosorbide mononitrate 30 mg tablet extended release 24 hr 30 mg PO DAILY Qty: 30 1RF (DME) Wheelchair See Rx Instructions .Route .MEDSUPPLY Qty: 1 0RF Rx Instructions: As directed Referrals / Follow Up: Doretha Brown MD [Primary Care Provider] - Disposition Disposition (needs filled in before D/C Order can be placed): Detention Facility
[2023-08-11 12:22] VITALS: BP 122/63; PULSE 60; RESP 18; TEMP 36.7; O2SAT 94
--- NOTE | 2023-08-11 12:46 | CASEMGMT ---
Patient was approved to go to [facility]. SW notified physician, RN, and patient. Plan: d/c to [facility] under skilled level of care on a PASRR as patient is observation status. Loan CARR
--- NOTE | 2023-08-11 13:52 | CASEMGMT ---
Discharge Planning Discharge orders, signed med list, and transport time sent to [facility]. [facility] will transport patient by wheelchair at 2p. Patient, nursing, and SW updated. Nuria Singh, Discharge Planning Asst.
[2023-08-11 14:00] VITALS: O2SAT 94
--- NOTE | 2023-08-11 14:49 | PCM.DC.SUM ---
Providers Date of Admission: 08/09/23 Primary Care Physician: Dr. 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 Routine Comment: Reason for Consult:: Chronic left neuropathic heel wound Reason For Visit: DECONDITIONING Diagnosis Discharge Diagnosis (1) Generalized weakness: Status: Acute Code(s): R53.1 - Weakness Medications at Discharge Home Medications acetaminophen 500 mg tablet 1,000 mg PO Q24H PRN PAIN 02/11/21 aspirin 81 mg tablet,delayed release (Adult Aspirin Regimen) 81 mg PO DAILY HEART HEALTH 11/05/21 peg [id number] 1 %-0.2 %-0.2 % eye drops (Artificial Tears ([id number])) 2 drp EACH EYE Q1H PRN DRY EYES #0 mL 11/14/21 gauze bandage 4 X 4 (Bordered Gauze) #14 ea 07/03/22 walker (Ultra-Light Rollator mis) #1 ea 07/21/22 pen needle, diabetic 33 gauge x / #200 ea 12/02/22 fluoxetine 20 mg capsule 20 mg PO DAILY ANXIETY 03/23/23 melatonin 3 mg tablet 3 mg PO QHS INSOMNIA 03/23/23 amlodipine 2.5 mg tablet 2.5 mg PO DAILY BLOOD PRESSURE 05/25/23 atorvastatin 80 mg tablet 80 mg PO QHS CHOLESTEROL 05/25/23 buspirone 7.5 mg tablet 7.5 mg PO TID ANXIETY 05/25/23 carvedilol 12.5 mg tablet 25 mg PO BID HEART 05/25/23 finasteride 5 mg tablet 5 mg PO DAILY PROSTATE 05/25/23 fluoxetine 40 mg capsule 40 mg PO DAILY ANXIETY 05/25/23 hydroxyzine HCl 25 mg tablet 25 mg PO QHS PRN ANXIETY 05/25/23 losartan 50 mg tablet 50 mg PO DAILY BLOOD PRESSURE 05/25/23 pantoprazole 40 mg tablet,delayed release 40 mg PO DAILY ACID REFLUX 05/25/23 trazodone 150 mg tablet 150 mg PO QHS INSOMNIA 05/25/23 clopidogrel 75 mg tablet 75 mg PO DAILY BLOOD THINNER #30 tabs 05/28/23 isosorbide mononitrate 30 mg tablet,extended release 24 hr 30 mg PO DAILY HEART #30 tabs 05/28/23 menthol 0.44 %-zinc oxide 20.6 % topical ointment (Calmoseptine) 1 applic topical BID skin irritation #0 grams 06/08/23 pregabalin 75 mg capsule 75 mg PO BID pain #10 caps 06/08/23 insulin glargine-yfgn 100 unit/mL (3 mL) subcutaneous pen 25 unit (0.25 mL) subcut BID diabetes #0 mL 07/15/23 insulin lispro 100 unit/mL subcutaneous pen (Humalog KwikPen (U-100) Insulin) 15 unit (0.15 mL) subcut TIDAC diabetes #0 mL 07/15/23 insulin lispro 100 unit/mL subcutaneous pen (Humalog KwikPen (U-100) Insulin) See Protocol subcut ACHS #0 mL 07/15/23 Wheelchair #1 ea 07/23/23 albuterol sulfate 90 mcg/actuation aerosol inhaler 2 puff inhalation Q4H PRN SOB 07/27/23 docusate sodium 100 mg capsule 100 mg PO TID PRN constipation 07/27/23 hydroxyzine HCl 10 mg tablet 10 mg PO TID 07/27/23 Lift Chair #1 ea 08/06/23 Hospital Course Operations None Procedures None Summary of Care Provided Minutes Spent on Discharge: 36 Hospital Course: Per HPI: REA HANNA, is a 63 M who presents to the emergency room at [facility] with complaint of generalized weakness and inability to perform ADLs and IADLs since he returned home from the [facility]. It appears that the patient was discharged from [facility] on 07/30/2023 to home instead of a group home facility, patient has had a history of multiple hospitalizations and at times has refused to go to a group home facility. The patient and the patient's tell me that the patient was recently in an extended care facility but was either discharge from the extended care facility requested to be discharged home-is not clear from talking with him what happened. I do not see from his medical record here that the patient was discharged to an ECF the last time he was in the hospital approximately 2 weeks ago. Work-up in the emergency room included a CBC which showed an elevated white blood cell count of 17.2, patient's creatinine was elevated at 1.41, urinalysis was unremarkable, CT of the abdomen and pelvis showed a persistent nonobstructing left renal stone without evidence of hydronephrosis and a left inguinal hernia without evidence of bowel obstruction, chest x-ray show no significant change from his previous chest x-ray. [facility] and OT will see the patient, he will likely need placement in a group home facility for at least short-term rehab services. The etiology of the patient's elevated white blood cell count is not apparent at this time, patient is afebrile and does not look toxic, I will refrain from administering antibiotics at this time. Hospital Course: 1. Failure to thrive with increasing weakness and inability complete ADLs/chronic respiratory failure?63-year-old male presents to the hospital knee eating placement for group home facility. He was recently admitted to the hospital but refused to go to a [facility] at that time because he only wanted to go to TCU and they did not take his insurance so he elected to go home despite advice that he was too weak to be able to take care of himself at home. I discussed with him that since he cannot go to TCU he has to go someplace different this time but she finally agreed but once again he is attempting to dictate that he only wants to have therapy on his legs and not be forced to do therapy on his arms I told him that the to go together in order to be able to get up and ambulate on your own but hopefully he will be able to stay there long enough to get the therapy he needs. I discussed with him the plan for discharge today he expressed understanding of the risk and benefits of going to the [facility] and is okay with going today. 2. Chronic diastolic CHF, coronary artery disease, peripheral artery disease status post stent, hypertension, hyperlipidemia, type 2 diabetes with a diabetic foot ulcer on his left heel, GERD, anxiety, depression all chronic medical conditions which complicate his care. His home medications were continued where appropriate Physical Exam Narrative General: Alert, Oriented x3, Cooperative, No apparent distress HEENT: Atraumatic, PERRLA, EOMI, Normocephalic Oral: Dry mucosa Neck: Supple, No JVD Lungs: Diminished, Normal air movement, No rhonchi, No wheeze, No rales Cardiovascular: Regular rate, Regular Rhythm, Normal S1, Normal S2, No murmurs Abdomen: Soft, Non Tender, Non-Distended, No Hepato-splenomegaly Extremities: No edema, Capillary Refill Less than 3 Seconds Skin: Known left foot ulceration Musculoskeletal: No Tenderness to Palpation of Joints or Extremities Neurological: Cranial nerves II-XII grossly intact, Motor Exam 5/5 strength throughout, Sensory exam intact to light touch and pain Psych/Mental Status: Flat Weight / BMI Weight Weight: 269 lb 6.478 oz Body Mass Index (BMI) 38.6 ABG / Lab / Microbiology Data 08/11/23 05:15 08/11/23 05:15 Laboratory: Laboratory Results - last 24 hr 08/10/23 16:31: POC Glucose 150 H 08/10/23 21:22: POC Glucose 135 H 08/11/23 03:14: POC Glucose 135 H 08/11/23 05:15: WBC 9.4, RBC 4.10 L, Hgb 11.2 L, Hct 36.0 L, MCV 87.8, MCH 27.3, MCHC 31.1 L, RDW Std Deviation 45.7 H, RDW Coeff of James 14.2, Plt Count 177, MPV 11.1, Immature Gran % (Auto) 0.400, Neut % (Auto) 64.8, Lymph % (Auto) 23.4, [place] % (Auto) 9.5, Eos % (Auto) 1.4, Baso % (Auto) 0.5, Absolute Neuts (auto) 6.1, Absolute Lymphs (auto) 2.21, Nucleated RBC % 0, Sodium 141, Potassium 4.4, Chloride 108 H, Carbon Dioxide 30.0, Anion Gap 3 L, BUN 18, Creatinine 1.21, Estim Creat Clear Calc 63.68, Est GFR (MDRD) Af Amer 78, Est GFR (MDRD) Non-Af 64, BUN/Creatinine Ratio 14.9, Glucose 176 H, Calcium 8.7 08/11/23 07:49: POC Glucose 176 H 08/11/23 11:22: POC Glucose 120 H Meaningful Use Info Meaningful Use Diagnoses (Choose all that apply): None applicable Discharge Plan Admission Admit Date/Time: 08/09/23 18:12 Attending Provider: Gabe Mathew Primary Care Provider: Doretha Brown Consulting Providers: Rubio Miller Discharge Orders/Prescriptions Prescriptions: Continued aspirin [Adult Aspirin Regimen] 81 mg tablet,delayed release (DR/EC) 81 mg PO DAILY (DME) Ultra-Light Rollator Misc See Rx Instructions .Route Qty: 1 2RF Rx Instructions: As directed (DME) pen needle, diabetic 33 gauge x 5/16 needle See Rx Instructions .Route Qty: 200 3RF Rx Instructions: As directed melatonin 3 mg tablet 3 mg PO QHS fluoxetine 20 mg capsule 20 mg PO DAILY (DME) Lift Chair See Rx Instructions .Route .MEDSUPPLY Qty: 1 0RF Rx Instructions: As directed acetaminophen 500 MG tablet 1,000 mg PO Q24H PRN (Reason: PAIN ) Artificial Tears(al-otsc-lvan) 1-0.2-0.2 % Drops 2 drp EACH EYE Q1H PRN (Reason: DRY EYES) Qty: 0 0RF (DME) gauze bandage [Bordered Gauze] 4 X 4 bandage See Rx Instructions .ROUTE .MEDSUPPLY Qty: 14 2RF Rx Instructions: Daily cleanse left foot wound with soap and water, dry and apply Betadine solution and apply clean dressing losartan 50 mg tablet 50 mg PO DAILY fluoxetine 40 mg capsule 40 mg PO DAILY trazodone 150 mg tablet 150 mg PO QHS carvedilol 12.5 mg tablet 25 mg PO BID amlodipine 2.5 mg tablet 2.5 mg PO DAILY pantoprazole 40 mg tablet,delayed release (DR/EC) 40 mg PO DAILY buspirone 7.5 mg tablet 7.5 mg PO TID hydroxyzine HCl 25 mg tablet 25 mg PO QHS PRN (Reason: ANXIETY ) atorvastatin 80 mg tablet 80 mg PO QHS finasteride 5 mg tablet 5 mg PO DAILY menthol-zinc oxide [Calmoseptine] 0.44-20.6 % Ointment 1 applic topical BID Qty: 0 0RF Protocol: *Topical Application Instructions APPLICATION INSTRUCTIONS: buttock pregabalin 75 mg Capsule 75 mg PO BID Qty: 10 0RF albuterol sulfate 90 mcg/actuation HFA aerosol inhaler 2 puff INHALATION Q4H PRN (Reason: SOB) Patient Comments: INHALE 2 PUFFS EVERY 4 TO 6 HOURS NEEDED FOR WHEEZING OR SHORTNESS OF BREATH, USE WITH SPACER docusate sodium 100 mg capsule 100 mg PO TID PRN (Reason: constipation) Patient Comments: TAKE 1 CAPSULE BY MOUTH THREE TIMES DAILY NEEDED for FOR CONSTIPATION for up to 5 (FIVE) days hydroxyzine HCl 10 mg tablet 10 mg PO TID Patient Comments: TAKE 1 TABLET BY MOUTH THREE TIMES DAILY insulin lispro [Humalog KwikPen Insulin] 100 unit/mL Insulin Pen See Protocol subcut ACHS Qty: 0 0RF Protocol: 4. Sliding Scale Insulin High-Med Dosing Condition: 150-199 mg/dl = 2 units Condition: 200-259 mg/dl = 4 units Condition: 260-324 mg/dl = 6 units Condition: 325-374 mg/dl = 8 units Condition: 375-409 mg/dl = 10 units Condition: 410-449 mg/dl = 11 units Condition: Greater than 449 call physician Protocol Text: - Use for Total Daily Dose of Insulin 56-80 units - Patient who are insulin resistant or septic HIGH MEDIUM DOSING ALGORITHM insulin lispro [Humalog KwikPen Insulin] 100 unit/mL Insulin Pen 15 unit subcut TIDAC Qty: 0 0RF insulin glargine-yfgn 100 unit/mL (3 mL) Insulin Pen 25 unit subcut BID Qty: 0 0RF clopidogrel 75 mg tablet 75 mg PO DAILY Qty: 30 1RF isosorbide mononitrate 30 mg tablet extended release 24 hr 30 mg PO DAILY Qty: 30 1RF (DME) Wheelchair See Rx Instructions .Route .MEDSUPPLY Qty: 1 0RF Rx Instructions: As directed Referrals / Follow Up: Doretha Brown MD [Primary Care Provider] - Disposition Disposition (needs filled in before D/C Order can be placed): Custodial Facility Charges/Coding Visit Charges Inpatient E&M: 12047 Disch Hosp >30min
--- NOTE | 2023-08-11 16:28 | CHAPLAIN ---
Type of Pastoral Visit _x__ Initial Visit ___ Follow-up Visit ___ On-call Visit ___ General Patient Visit ___ Spiritual Assessment ___ Family Conference ___ Bereavement ___ Rapid Response ___ Code Blue ___ Other (describe below) Pastoral Care Referral From _x__ Patient ___ Family ___ Nurse ___ Physician ___ Supervisor [employer] ___ City Superintendent Of Schools ___ Other (describe below) Sacrament/Intervention _x__ Active listening ___ Anointing ___ Amish ___ Bereavement ___ Communion ___ Sarai exploration ___ ___ Life review ___ Prayer ___ Reconciliation ___ Sacrament of Sick ___ Supportive presence ___ Wedding ___ Other (describe below) Pastoral Comments patient has been seen in numerous admissions and even recently; pt states that he cannot walk and needs to have legs strengthened; pt is going to [facility] very soon and states that I'm not doing anything else there but getting help with my legs; pt admits that this is his plan; pt says a prayer would be good for his support
== END 2023-08-11 12:16 | disposition skilled nursing facility (03) ==
LOC: ED 18:12 → PCU 18:27
PROVIDERS: Admitting Provider Internal Medicine; Emergency Provider Emergency Medicine; PCP Internal Medicine; Visit Provider Family Medicine
DX: R62.7 Adult failure to thrive (principal); E11.621 Type 2 diabetes mellitus with foot ulcer; L89.152 Pressure ulcer of sacral region, stage 2; E11.51 Type 2 diabetes mellitus with diabetic peripheral angiopathy without gangrene; L97.521 Non-pressure chronic ulcer of other part of left foot limited to breakdown of skin; J44.9 Chronic obstructive pulmonary disease, unspecified; I13.0 Hypertensive heart and chronic kidney disease with heart failure and stage 1 through stage 4 chronic kidney disease, or unspecified chronic kidney disease; I50.32 Chronic diastolic (congestive) heart failure; E11.40 Type 2 diabetes mellitus with diabetic neuropathy, unspecified; E11.649 Type 2 diabetes mellitus with hypoglycemia without coma; E11.22 Type 2 diabetes mellitus with diabetic chronic kidney disease; Z79.4 Long term (current) use of insulin; N18.9 Chronic kidney disease, unspecified; Z79.02 Long term (current) use of antithrombotics/antiplatelets; R53.1 Weakness; K21.9 Gastro-esophageal reflux disease without esophagitis; E78.00 Pure hypercholesterolemia, unspecified; F41.9 Anxiety disorder, unspecified; Z79.82 Long term (current) use of aspirin; Z99.3 Dependence on wheelchair; N20.0 Calculus of kidney; I25.10 Atherosclerotic heart disease of native coronary artery without angina pectoris; Z79.899 Other long term (current) drug therapy; Z68.39 Body mass index [BMI] 39.0-39.9, adult; F32.A Depression, unspecified
CPT/HCPCS: 36415; 71045; 74177; 80048; 80076; 81001; 82962; 83605; 84484; 85025; 93005; 96361; 96372; 96374; 96375; 97162; 97166; 97530; 97535; 97802; 99221; 99285; J7030; P9612; Q9967; A4216; G0378; J2405

== ENCOUNTER 2023-08-21 22:50 | Emergency (ER) | payer MEDICARE, MEDICAID, SELFPAY ==
[2023-08-21 22:51] VITALS: BP 169/70; PULSE 62; RESP 16; TEMP 36.8; O2SAT 97; BMI 41.1
[2023-08-21 23:20] VITALS: BP 144/69; PULSE 62; RESP 18; O2SAT 98
--- NOTE | 2023-08-21 23:25 | EDS_ITS ---
HPI History of Present Illness Chief Complaint: Anxiety Informant: patient, spouse/S.O. and EMS Narrative Narrative: Patient brought from assisted living because they checked his blood pressure prior to giving his nighttime medications, which include his blood pressure medication, and it was high. The patient states it was over 200 systolic. He started feeling short of breath after he heard the number, the patient states he was feeling very anxious about potentially having another heart attack. He states he feels back to normal now. He thinks he was just feeling very panicky. While evaluating the patient his blood pressure is 169/70. He took his nigh ttime medications a little while ago. He was not feeling short of breath prior to them checking his blood pressure. No recent cough or chest discomfort. Denies any palpitations or lightheadedness. [facility] Medical History (Updated 08/21/23 @ 23:[address] Bryan Shields MD) CELESTE (acute kidney injury) Ambulates with cane Amputation of one or more toes Anxiety Anxiety and depression Arrhythmia Arthritis Aspiration into airway Aspiration pneumonia Atherosclerotic heart disease of [place] coronary artery without angina pectoris Back pain Back spasm Bilateral leg weakness Blind left eye Blister (nonthermal), left foot, initial encounter Bronchiectasis with (acute) exacerbation Cardiology follow-up encounter Chronic cough Chronic respiratory failure with hypoxia CKD (chronic kidney disease) COPD (chronic obstructive pulmonary disease) Coronary artery disease CPAP (continuous positive airway pressure) dependence Debility, unspecified Decubitus ulcer limited to breakdown of skin (stage 2) Depression Diabetes Essential hypertension Gastric reflux GERD (gastroesophageal reflux disease) High cholesterol History of aspiration pneumonia History of diabetes mellitus History of echocardiogram History of edema History of gout History of heart attack History of non-ST elevation myocardial infarction (NSTEMI) (08/2016) History of pain when walking History of steroid therapy History of stress test Hyperglycemia due to type 2 diabetes mellitus Hypertension Insulin dependent diabetes mellitus Irregular heart beat Kidney disease Kidney stones Kidney stones Leg pain, right Leukocytosis Low back pain Memory impairment Migraines Mood disorder Myocardial infarct Non-smoker Noncompliance by declining intervention or support On home oxygen therapy Peripheral vascular occlusive disease Pneumonia Prostate disease Pulmonary nodule, left Recurrent falls Right ankle pain Right foot pain Shortness of breath on exertion Silent aspiration Sleep apnea Tremor Type 2 diabetes mellitus Type 2 diabetes mellitus with diabetic polyneuropathy Ulcer of left foot, limited to breakdown of skin 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 Wears glasses Wound of left lower extremity Home Medications acetaminophen 500 mg tablet 1,000 mg PO Q24H PRN PAIN 02/11/21 [History Last Taken 08/08/23] aspirin 81 mg tablet,delayed release (Adult Aspirin Regimen) 81 mg PO DAILY HEART HEALTH 11/05/21 [History Last Taken 08/09/23] peg [id number] 1 %-0.2 %-0.2 % eye drops (Artificial Tears ([id number])) 2 drp EACH EYE Q1H PRN DRY EYES #0 mL 11/14/21 [Rx Last Taken 06/04/23] gauze bandage 4 X 4 (Bordered Gauze) #14 ea 07/03/22 [Rx Last Taken Unknown] [place] [facility] [place]a 07/21/22 [Rx Last Taken Unknown] pen needle, diabetic 33 gauge x 5/16 #200 ea 12/02/22 [Rx Last Taken Unknown] fluoxetine 20 mg capsule 20 mg PO DAILY ANXIETY 03/23/23 [History Last Taken 08/09/23] melatonin 3 mg tablet 3 mg PO QHS INSOMNIA 03/23/23 [History Last Taken 08/08/23] amlodipine 2.5 mg tablet 2.5 mg PO DAILY BLOOD PRESSURE 05/25/23 [History Last Taken 08/08/23] atorvastatin 80 mg tablet 80 mg PO QHS CHOLESTEROL 05/25/23 [History Last Taken 08/08/23] buspirone 7.5 mg tablet 7.5 mg PO TID ANXIETY 05/25/23 [History Last Taken 08/09/23] carvedilol 12.5 mg tablet 25 mg PO BID HEART 05/25/23 [History Last Taken 08/09/23] finasteride 5 mg tablet 5 mg PO DAILY PROSTATE 05/25/23 [History Last Taken 08/09/23] fluoxetine 40 mg capsule 40 mg PO DAILY ANXIETY 05/25/23 [History Last Taken 08/09/23] hydroxyzine HCl 25 mg tablet 25 mg PO QHS PRN ANXIETY 05/25/23 [History Last Taken 08/09/23] losartan 50 mg tablet 50 mg PO DAILY BLOOD PRESSURE 05/25/23 [History Last Taken 08/09/23] pantoprazole 40 mg tablet,delayed release 40 mg PO DAILY ACID REFLUX 05/25/23 [History Last Taken 08/09/23] trazodone 150 mg tablet 150 mg PO QHS INSOMNIA 05/25/23 [History Last Taken 08/08/23] clopidogrel 75 mg tablet 75 mg PO DAILY BLOOD THINNER #30 tabs 05/28/23 [Rx Last Taken 08/09/23] isosorbide mononitrate 30 mg tablet,extended release 24 hr 30 mg PO DAILY HEART #30 tabs 05/28/23 [Rx Last Taken 08/09/23] menthol 0.44 %-zinc oxide 20.6 % topical ointment (Calmoseptine) 1 applic topical BID skin irritation #0 grams 06/08/23 [Rx Last Taken 08/08/23] pregabalin 75 mg capsule 75 mg PO BID pain #10 caps 06/08/23 [Rx Last Taken 08/09/23] insulin glargine-yfgn 100 unit/mL (3 mL) subcutaneous pen 25 unit (0.25 mL) subcut BID diabetes #0 mL 07/15/23 [Rx Last Taken 08/09/23] insulin lispro 100 unit/mL subcutaneous pen (Humalog KwikPen (U-100) Insulin) 15 unit (0.15 mL) subcut TIDAC diabetes #0 mL 07/15/23 [Rx Last Taken 08/09/23] insulin lispro 100 unit/mL subcutaneous pen (Humalog KwikPen (U-100) Insulin) See Protocol subcut ACHS #0 mL 07/15/23 [Rx Last Taken 08/09/23] Wheelchair #1 ea 07/23/23 [Rx Last Taken Unknown] albuterol sulfate 90 mcg/actuation aerosol inhaler 2 puff inhalation Q4H PRN SOB 07/27/23 [History Last Taken Unknown] docusate sodium 100 mg capsule 100 mg PO TID PRN constipation 07/27/23 [History Last Taken Unknown] hydroxyzine HCl 10 mg tablet 10 mg PO TID 07/27/23 [History Last Taken 08/09/23] Lift Chair #1 ea 08/06/23 [Rx Last Taken Unknown] Allergy/AdvReac Type Severity Reaction Status Date / Time allopurinol AdvReac Vomiting Verified 08/21/23 22:51 Influenza Virus Vaccines AdvReac Vomiting Verified 08/21/23 22:51 pneumococcal vaccine AdvReac Vomiting Verified 08/21/23 22:51 Family History Mother Diabetes Heart disease CHF Father Heart disease AR/CAD Myocardial infarction Surgical History (Updated 08/14/23 @ 00:30 by Gisell Diaz) H/O lithotripsy History of angioplasty of peripheral vessel (2016) History of angioplasty of peripheral vessel History of ankle surgery History of cardiac catheterization History of coronary artery stent placement (08/2016) History of coronary artery stent placement History of esophagogastroduodenoscopy (EGD) History of left heart catheterization (11/15/17) History of thyroid surgery Hx of lithotripsy Hx of surgery to heart and great vessels, presenting hazards to health Hx of surgical procedure Hx of thyroidectomy Hx of toe surgery Hx of toe surgery PEG (percutaneous endoscopic gastrostomy) status Social History household members: spouse housing: apartment Smoking Status: Never smoker alcohol intake: never substance use type: does not use ROS ROS ED Constitutional Constitutional ED: Denies chills or fever(s) Eyes Eyes: Denies change in vision or diplopia ENT ENT ED: Denies rhinorrhea or sore throat Cardiovascular Cardiovascular: Reports leg edema; Denies chest pain or palpitations Respiratory/Chest Respiratory/Chest: Reports dyspnea; Denies cough Gastrointestinal Gastrointestinal: Denies abdominal pain, diarrhea, nausea or vomiting Genitourinary Genitourinary ED: Reports urinary frequency; Denies dysuria or hematuria Musculoskeletal Musculoskeletal: Denies back pain or neck pain Integumentary Denies abscess or rash Neurologic Neurologic: Denies headache(s), paresthesias or weakness Psychiatric Psychiatric: Reports anxiety; Denies suicidal thoughts EXAM Physical Exam Const Vital Signs: 08/21/23 22:51 08/21/23 23:20 Temperature 98.3 F Temperature Source Temporal Pulse Rate 62 62 Respiratory Rate 16 18 Blood Pressure 169/70 H 144/69 H Blood Pressure Mean 103 94 Pulse Ox 97 98 Oxygen Delivery Method Nasal Cannula Nasal Cannula Oxygen Flow Rate (L/min) 2 4 Positive well nourished, well developed and obese General Appearance ED: well developed and NAD Nutritional Appearance: obese HEENT Reports moist mucous membranes normocephalic and atraumatic Eyes PERRL and EOMs intact bilaterally Neck full ROM and supple Chest Wall inspection of chest normal and palpation of chest normal Resp normal respiratory effort and clear to auscultation bilaterally Cardio regular rate, regular rhythm and no murmurs Rate: Negative for tachycardic GI non-tender and non-distended Auscultation: normoactive bowel sounds Palpation: soft Extremity normal to inspection General Extremety ED: Yes edema; Negative for pulses abnormal or tenderness General Extremity: edema bilateral lower extremity Details: moderate; Negative for pulses abnormal Neuro oriented x3, CN's II-XII intact bilaterally and no sensory deficits noted Sensorium / Orientation: awake and alert Motor Exam: strength 5/5 throughout Psych Mood & Affect: anxious Skin no rashes or lesions noted and no wounds MDM MDM MDM Narrative Medical decision making narrative: Patient states he chronically has urinary frequency because his blood sugars usually are high. He states it was low a few times in the last several days, and by low he means it was in the 80s. He was asymptomatic with this. He was given cola and food by the assisted living/residential for these numbers. I had nursing check it here, it is 109. His repeat blood pressure is 144/69. Patient is reassured and stable for discharge back. Discharge Plan Triage Chief Complaint: Anxiety ED Provider: Bryan Shields Dx/Rx/DC Orders Clinical Impression: Episode of hypertension, Anxiety Instructions: ED Hypertension, Established Prescriptions: No Action aspirin [Adult Aspirin Regimen] 81 mg tablet,delayed release (DR/EC) 81 mg PO DAILY (DME) Ultra-Light Rollator Misc See Rx Instructions .Route Qty: 1 2RF Rx Instructions: As directed (DME) pen needle, diabetic 33 gauge x 5/16 needle See Rx Instructions .Route Qty: 200 3RF Rx Instructions: As directed melatonin 3 mg tablet 3 mg PO QHS fluoxetine 20 mg capsule 20 mg PO DAILY (DME) Lift Chair See Rx Instructions .Route .MEDSUPPLY Qty: 1 0RF Rx Instructions: As directed acetaminophen 500 MG tablet 1,000 mg PO Q24H PRN (Reason: PAIN ) Artificial Tears([id number]) 1-0.2-0.2 % Drops 2 drp EACH EYE Q1H PRN (Reason: DRY EYES) Qty: 0 0RF (DME) gauze bandage [Bordered Gauze] 4 X 4 bandage See Rx Instructions .ROUTE .MEDSUPPLY Qty: 14 2RF Rx Instructions: Daily cleanse left foot wound with soap and water, dry and apply Betadine solution and apply clean dressing losartan 50 mg tablet 50 mg PO DAILY fluoxetine 40 mg capsule 40 mg PO DAILY trazodone 150 mg tablet 150 mg PO QHS carvedilol 12.5 mg tablet 25 mg PO BID amlodipine 2.5 mg tablet 2.5 mg PO DAILY pantoprazole 40 mg tablet,delayed release (DR/EC) 40 mg PO DAILY buspirone 7.5 mg tablet 7.5 mg PO TID hydroxyzine HCl 25 mg tablet 25 mg PO QHS PRN (Reason: ANXIETY ) atorvastatin 80 mg tablet 80 mg PO QHS finasteride 5 mg tablet 5 mg PO DAILY menthol-zinc oxide [Calmoseptine] 0.44-20.6 % Ointment 1 applic topical BID Qty: 0 0RF Protocol: *Topical Application Instructions APPLICATION INSTRUCTIONS: buttock pregabalin 75 mg Capsule 75 mg PO BID Qty: 10 0RF albuterol sulfate 90 mcg/actuation HFA aerosol inhaler 2 puff INHALATION Q4H PRN (Reason: SOB) Patient Comments: INHALE 2 PUFFS EVERY 4 TO 6 HOURS NEEDED FOR WHEEZING OR SHORTNESS OF BREATH, USE WITH SPACER docusate sodium 100 mg capsule 100 mg PO TID PRN (Reason: constipation) Patient Comments: TAKE 1 CAPSULE BY MOUTH THREE TIMES DAILY NEEDED for FOR CONSTIPATION for up to 5 (FIVE) days hydroxyzine HCl 10 mg tablet 10 mg PO TID Patient Comments: TAKE 1 TABLET BY MOUTH THREE TIMES DAILY insulin lispro [Humalog KwikPen Insulin] 100 unit/mL Insulin Pen See Protocol subcut ACHS Qty: 0 0RF Protocol: 4. Sliding Scale Insulin High-Med Dosing Condition: 150-199 mg/dl = 2 units Condition: 200-259 mg/dl = 4 units Condition: 260-324 mg/dl = 6 units Condition: 325-374 mg/dl = 8 units Condition: 375-409 mg/dl = 10 units Condition: 410-449 mg/dl = 11 units Condition: Greater than 449 call physician Protocol Text: - Use for Total Daily Dose of Insulin 56-80 units - Patient who are insulin resistant or septic HIGH MEDIUM DOSING ALGORITHM insulin lispro [Humalog KwikPen Insulin] 100 unit/mL Insulin Pen 15 unit subcut TIDAC Qty: 0 0RF insulin glargine-yfgn 100 unit/mL (3 mL) Insulin Pen 25 unit subcut BID Qty: 0 0RF clopidogrel 75 mg tablet 75 mg PO DAILY Qty: 30 1RF isosorbide mononitrate 30 mg tablet extended release 24 hr 30 mg PO DAILY Qty: 30 1RF (DME) Wheelchair See Rx Instructions .Route .MEDSUPPLY Qty: 1 0RF Rx Instructions: As directed Primary Care Provider: Doretha Brown Referrals: Doretha Brown MD [Primary Care Provider] - As Needed Activity Restrictions/Additional Instructions: BP 144/69 Disposition Disposition: Home, Self Care
[2023-08-21 23:36] LABS: Bedside Glucose 109 mg/dL (74-106)
[2023-08-22] VITALS: BP 132/61
== END 2023-08-22 | disposition skilled nursing facility (03) ==
LOC: ED 23:39
PROVIDERS: Emergency Provider Emergency Medicine; PCP Internal Medicine; Visit Provider Emergency Medicine
DX: F41.9 Anxiety disorder, unspecified (principal); Z93.1 Gastrostomy status; J44.9 Chronic obstructive pulmonary disease, unspecified; E11.42 Type 2 diabetes mellitus with diabetic polyneuropathy; E11.22 Type 2 diabetes mellitus with diabetic chronic kidney disease; Z79.4 Long term (current) use of insulin; N18.9 Chronic kidney disease, unspecified; E78.00 Pure hypercholesterolemia, unspecified; I12.9 Hypertensive chronic kidney disease with stage 1 through stage 4 chronic kidney disease, or unspecified chronic kidney disease; I25.10 Atherosclerotic heart disease of native coronary artery without angina pectoris; Z79.899 Other long term (current) drug therapy; Z79.82 Long term (current) use of aspirin; I25.2 Old myocardial infarction; Z99.81 Dependence on supplemental oxygen; Z99.89 Dependence on other enabling machines and devices; K21.9 Gastro-esophageal reflux disease without esophagitis; Z79.02 Long term (current) use of antithrombotics/antiplatelets; Z95.5 Presence of coronary angioplasty implant and graft
CPT/HCPCS: 82962; 99284

== ENCOUNTER 2023-08-28 07:50 | Inpatient (IN) | payer MEDICARE, MEDICAID, SELFPAY ==
[2023-08-28] VITALS (30 sets, daily range): BP systolic 129–239; BP diastolic 28–133; PULSE 62–114; RESP 12–26; TEMP 36.4–38.8; O2SAT 85–99; BMI 44.6; BMI 39.6
--- NOTE | 2023-08-28 08:01 | ED.VIS.DYS ---
HPI History of Present Illness Chief Complaint: Shortness of Breath Informant: patient and EMS Narrative Narrative: With dyspnea. Details of the events are not clear. Patient will nod yes and no and follow simple commands. But I cannot get a detailed story out of him. At some point, group home staff noticed that he was dyspneic or not acting normally. He was found to have a low blood sugar. He was evidently given oral glucose prior to EMS arrival but EMS got his blood sugar at 52. We are rechecking this as this may be part of his issue. He was also found to be very short of breath with very low sats. He does have a history of COPD and is 4 L dependent. I did review outpatient notes from Dr. Lanier and his office regarding this patient's pulmonary status. I do not know the time of onset or progression. I do not know if he has been ill recently. [facility] Medical History CELESTE (acute kidney injury) Ambulates with cane Amputation of one or more toes Anxiety and depression Arrhythmia Arthritis Aspiration pneumonia Atherosclerotic heart disease of telida coronary artery without angina pectoris Back pain Back spasm Bilateral leg weakness Blind left eye Blister (nonthermal), left foot, initial encounter Bronchiectasis with (acute) exacerbation Cardiology follow-up encounter Chronic cough Chronic respiratory failure with hypoxia CKD (chronic kidney disease) COPD (chronic obstructive pulmonary disease) Coronary artery disease CPAP (continuous positive airway pressure) dependence Debility, unspecified Decubitus ulcer limited to breakdown of skin (stage 2) Depression Diabetes Essential hypertension Gastric reflux High cholesterol History of aspiration pneumonia History of diabetes mellitus History of echocardiogram History of edema History of gout History of heart attack History of non-ST elevation myocardial infarction (NSTEMI) (08/2016) History of pain when walking History of steroid therapy Hyperglycemia due to type 2 diabetes mellitus Hypertension Insulin dependent diabetes mellitus Irregular heart beat Kidney stones Leg pain, right Leukocytosis Low back pain Memory impairment Migraines Mood disorder Non-smoker Noncompliance by declining intervention or support On home oxygen therapy Peripheral vascular occlusive disease Pneumonia Prostate disease Pulmonary nodule, left Recurrent falls Right ankle pain Right foot pain Shortness of breath on exertion Silent aspiration Sleep apnea Tremor Type 2 diabetes mellitus with diabetic polyneuropathy Ulcer of left foot, limited to breakdown of skin Vision loss of left eye Wears glasses Wound of left lower extremity Home Medications acetaminophen 500 mg tablet 1,000 mg PO Q24H PRN PAIN 02/11/21 [History Last Taken 08/08/23] aspirin 81 mg tablet,delayed release (Adult Aspirin Regimen) 81 mg PO DAILY HEART HEALTH 11/05/21 [History Last Taken 08/09/23] peg [id number] 1 %-0.2 %-0.2 % eye drops (Artificial Tears ([id number])) 2 drp EACH EYE Q1H PRN DRY EYES #0 mL 11/14/21 [Rx Last Taken 06/04/23] gauze bandage 4 X 4 (Bordered Gauze) #14 ea 07/03/22 [Rx Last Taken Unknown] walker (Ultra-Light Rollator [facility]) #1 ea 07/21/22 [Rx Last Taken Unknown] pen needle, diabetic 33 gauge x 5/16 #200 ea 12/02/22 [Rx Last Taken Unknown] fluoxetine 20 mg capsule 20 mg PO DAILY ANXIETY 03/23/23 [History Last Taken 08/09/23] melatonin 3 mg tablet 3 mg PO QHS INSOMNIA 03/23/23 [History Last Taken 08/08/23] amlodipine 2.5 mg tablet 2.5 mg PO DAILY BLOOD PRESSURE 05/25/23 [History Last Taken 08/08/23] atorvastatin 80 mg tablet 80 mg PO QHS CHOLESTEROL 05/25/23 [History Last Taken 08/08/23] buspirone 7.5 mg tablet 7.5 mg PO TID ANXIETY 05/25/23 [History Last Taken 08/09/23] carvedilol 12.5 mg tablet 25 mg PO BID HEART 05/25/23 [History Last Taken 08/09/23] finasteride 5 mg tablet 5 mg PO DAILY PROSTATE 05/25/23 [History Last Taken 08/09/23] fluoxetine 40 mg capsule 40 mg PO DAILY ANXIETY 05/25/23 [History Last Taken 08/09/23] losartan 50 mg tablet 50 mg PO DAILY BLOOD PRESSURE 05/25/23 [History Last Taken 08/09/23] pantoprazole 40 mg tablet,delayed release 40 mg PO DAILY ACID REFLUX 05/25/23 [History Last Taken 08/09/23] trazodone 150 mg tablet 150 mg PO QHS INSOMNIA 05/25/23 [History Last Taken 08/08/23] clopidogrel 75 mg tablet 75 mg PO DAILY BLOOD THINNER #30 tabs 05/28/23 [Rx Last Taken 08/09/23] pregabalin 75 mg capsule 75 mg PO BID pain #10 caps 06/08/23 [Rx Last Taken 08/09/23] insulin glargine-yfgn 100 unit/mL (3 mL) subcutaneous pen 25 unit (0.25 mL) subcut BID diabetes #0 mL 07/15/23 [Rx Last Taken 08/09/23] insulin lispro 100 unit/mL subcutaneous pen (Humalog KwikPen (U-100) Insulin) 15 unit (0.15 mL) subcut TIDAC diabetes #0 mL 07/15/23 [Rx Last Taken 08/09/23] insulin lispro 100 unit/mL subcutaneous pen (Humalog KwikPen (U-100) Insulin) See Protocol subcut ACHS #0 mL 07/15/23 [Rx Last Taken 08/09/23] Wheelchair #1 ea 07/23/23 [Rx Last Taken Unknown] albuterol sulfate 90 mcg/actuation aerosol inhaler 2 puff inhalation Q4H PRN SOB 07/27/23 [History Last Taken Unknown] docusate sodium 100 mg capsule 100 mg PO TID PRN constipation 07/27/23 [History Last Taken Unknown] hydroxyzine HCl 10 mg tablet 10 mg PO TID 07/27/23 [History Last Taken 08/09/23] Lift Chair #1 ea 08/06/23 [Rx Last Taken Unknown] bisacodyl 10 mg rectal suppository 10 mg IA DAILY PRN constipation 08/28/23 [History Last Taken Unknown] isosorbide dinitrate 30 mg tablet 30 mg PO DAILY 08/28/23 [History Last Taken Unknown] multivitamin with minerals (DAILY VITAMIN FORMULA-MINERALS tablet) 1 tab PO DAILY skin health 08/28/23 [History Last Taken 08/28/23] Allergy/AdvReac Type Severity Reaction Status Date / Time allopurinol AdvReac Vomiting Verified 08/21/23 22:51 Influenza Virus Vaccines AdvReac Vomiting Verified 08/21/23 22:51 pneumococcal vaccine AdvReac Vomiting Verified 08/21/23 22:51 Family History Mother Diabetes Heart disease CHF Father Heart disease AR/CAD Myocardial infarction Surgical History H/O lithotripsy History of angioplasty of peripheral vessel (2016) History of angioplasty of peripheral vessel History of ankle surgery History of cardiac catheterization History of coronary artery stent placement (08/2016) History of coronary artery stent placement History of esophagogastroduodenoscopy (EGD) History of left heart catheterization (11/15/17) History of thyroid surgery Hx of lithotripsy Hx of surgery to heart and great vessels, presenting hazards to health Hx of surgical procedure Hx of thyroidectomy Hx of toe surgery Hx of toe surgery PEG (percutaneous endoscopic gastrostomy) status Social History household members: spouse housing: apartment Smoking Status: Never smoker alcohol intake: never substance use type: does not use ROS ROS ED ROS Narrative Review of systems is not obtainable at this time. Although patient nods yes and no he is not actually talking giving me a clear detail of the story. He is improving and we hope to get some of this information from him. EXAM Physical Exam Narrative Exam Narrative: Patient is awake. He does respond to simple commands such as move a certain extremity or open his eyes. He does appear to be in some respiratory difficulty. HEENT: BiPAP is on with a good seal. He is tolerating this well. No subcu air noted. Neck is thick but no obvious JVD. I hear no stridor. Heart patient is mildly tachycardic I do not hear a murmur but difficult to hear over his breath sounds. Monitor shows a sinus tachycardia with a rate about 110?115. Lungs: Increased work of breathing. Decreased breath motion. Coarse breath sounds throughout and diffuse wheezing. I rechecked him about 5 minutes later. With breathing treatments he is moving better air and getting greater volumes. He EMS had him at 75%. When he arrived at the door they had him up to 85% on 15 L with his BiPAP. We currently have him at 95% sats Abdomen shows obesity but no tenderness Extremities do show some +1 bilateral edema. He has loss of toes on his foot on the right. Neurologic: He does open his eyes when I speak. He moves extremities to commands. But is difficult to get him to talk but he is also on BiPAP which does make this quite difficult. He seems to be following all commands and have no focal deficit though. He seems to be alert. He is starting to get a shake and tremor which is something that he does quite commonly. Is not a seizure. Const Vital Signs: 08/28/23 07:51 08/28/23 07:58 08/28/23 08:00 Temperature 98.7 F 98.7 F Temperature Source Temporal Temporal Pulse Rate 114 H 111 H Respiratory Rate 26 H 22 H Respiratory Effort Respiratory Depth Respiratory Pattern Blood Pressure 183/133 H 183/133 H Blood Pressure Mean 149 149 Pulse Ox 85 85 85 Oxygen Delivery Method Bi-pap Bi-pap Bi-pap Oxygen Flow Rate (L/min) 15 15 Fraction of Inspired Oxygen (FIO2) 08/28/23 08:01 08/28/23 08:12 08/28/23 08:13 Temperature Temperature Source Pulse Rate 113 H Respiratory Rate 25 H Respiratory Effort Short of Breath Labored Respiratory Depth Deep Respiratory Pattern Tachypnea Blood Pressure Blood Pressure Mean Pulse Ox 95 95 Oxygen Delivery Method Bi-pap Bi-pap Bi-pap Oxygen Flow Rate (L/min) Fraction of Inspired Oxygen (FIO2) 70 70 08/28/23 08:05 08/28/23 08:00 08/28/23 08:30 Temperature Temperature Source Pulse Rate 114 H 110 H 97 Respiratory Rate 22 H 23 H 14 Respiratory Effort Respiratory Depth Respiratory Pattern Blood Pressure 239/88 H Blood Pressure Mean 138 Pulse Ox 98 96 Oxygen Delivery Method Bi-pap Oxygen Flow Rate (L/min) Fraction of Inspired Oxygen (FIO2) 100 08/28/23 09:00 08/28/23 09:47 08/28/23 09:47 Temperature 97.9 F 97.6 F L Temperature Source Temporal Temporal Pulse Rate 90 64 92 Respiratory Rate 14 14 20 H Respiratory Effort Respiratory Depth Respiratory Pattern Blood Pressure 187/70 H 187/90 H 180/90 H Blood Pressure Mean 109 122 120 Pulse Ox 98 95 98 Oxygen Delivery Method Room Air Bi-pap Bi-pap Oxygen Flow Rate (L/min) Fraction of Inspired Oxygen (FIO2) MDM MDM MDM Narrative Medical decision making narrative: Patient is rechecked. He is much more awake and alert. He is spontaneously awake as I walk in the room. His breathing is easier. His saturations are about 92-94% on BiPAP at this time. He has inspiratory expiratory pressure of 18 and 12. FiO2 is 70%. I will see if we can wean this slightly. Per Dr. Lanier's office note, the saturations at 89-91 or 92% would be appropriate. So we can maybe drop him a little bit. Patient's ABG he came in did show some slight of acute retention with a CO2 of 68.7 and a pH of 7.257. Clinically I think he is likely improved here. Patient's white count is elevated at 15.9. Patient's electrolytes did show elevated bicarb. Patient's troponin is negative at 15. Patient's BNP is just mildly elevated at 172. Patient did improve here. He is moving better air. He is oxygenating well. He is markedly more alert. But with his significant past history, prolonged hypoxia, CO2 retention and acidosis, will be admitted to ICU. Lab Data Attestation: I reviewed the patient's lab results. Labs: Laboratory Results - last 24 hr 08/28/23 08/28/23 07:50 08:04 WBC 15.9 H RBC 4.76 Hgb 13.0 Hct 43.4 MCV 91.2 MCH 27.3 MCHC 30.0 L RDW Std Deviation 48.7 H RDW Coeff of James 14.6 Plt Count 244 MPV 10.6 Immature Gran % (Auto) 0.600 Neut % (Auto) 85.1 H Lymph % (Auto) 10.5 L [place] % (Auto) 2.4 Eos % (Auto) 1.0 Baso % (Auto) 0.4 Absolute Neuts (auto) 13.5 H Absolute Lymphs (auto) 1.66 Nucleated RBC % 0 Sodium 143 Potassium 4.5 Chloride 108 H Carbon Dioxide 35.0 H Anion Gap 0 L BUN 13 Creatinine 1.20 Estim Creat Clear Calc 62.19 Est GFR (MDRD) Af Amer 78 Est GFR (MDRD) Non-Af 65 BUN/Creatinine Ratio 10.8 Glucose 52 L Lactic Acid 1.4 Calcium 9.0 Troponin I High Sens 15 B-Natriuretic Peptide 172.2 H POC Glucose 52 L ABG Data ABG results: ABG 08/28/23 08:06 Specimen Type ART Sample Site L Radial pH 7.26 L Bicarbonate Actual 30.7 H Total CO2 33 Base Excess 4 H O2 Saturation 95 O2 % 100.0 ABG pCO2 68.7 H* ABG pO2 92 Respiration Rate 12 O2 Delivery Device Not entered Vent Mode avaps Tidal Volume 450.0 Crit Call To/Read Back Yes Blood Gas Notified Whom pl Blood Gas Notified Time 08:07:43 Radiography Diagnostic Testing: Clinical Impression(s) from Imaging Studies Chest X-Ray 08/28/23 08:25 IMPRESSION: Consolidation has worsened in the bilateral perihilar and lower lobe regions and is moderate in severity. Electronically Signed: Timothy Langston MD at 8:49 EDT , EKG Initial EKG: Comments: My independent interpretation of the patient's EKG is sinus with possibility of 2 different pacer sources. He is mildly tachycardic at 110. Nonspecific diffuse changes. IA interval is long consistent with a first-degree AV block also. QRS duration and QTc are normal. Critical Care Time Critical Care Time: Yes Critical care time (excluding procedures): 30-74 minutes, Discussing w/Patient &/or Family/Supervisor Forming And Tempering, Discussing w/Consultants, Arranging Admission or Transfer, Performing Direct Patient Care at Bedside and - (MDM in chart. 42 minutes total.) Discharge Plan Dx/Rx/DC Orders Clinical Impression: Respiratory failure with hypoxia, Acute exacerbation of chronic obstructive pulmonary disease, Acute respiratory acidosis Disposition Disposition: [facility] Discharge Date/Time: 08/28/23 11:14
[2023-08-28] MEDS: MethylPREDNISolone 125 MG/2 ML Vial IV (08:08)
[2023-08-28] MEDS: Ipratropium/Albuterol Sulfate 3 ML AMPUL.NEB INHALATION ×4 (08:08→23:15)
[2023-08-28 08:11] LABS: Base Excess 4 mmol/L (-2 to +2); Bicarbonate 30.7 mmol/L (22-26); Blood Gas Specimen Type ART; Mode avaps; O2 Delivery Device Not entered; PO2 92 mmHG (75-100); RR 12; SITE L Radial; SO2 95 % (95-99); Total Carbon Dioxide 33 mmol/L; pCO2 68.7 mmHg (35-45); pH 7.26 (7.35-7.45)
[2023-08-28 08:11] LABS: Absolute Lymphocyte Count 1.66 X10^3/uL (0.83-4.51); Absolute Neutrophil Count 13.5 X10^3/uL (2.0-7.7); Basophil# 0.06 X10^3/uL; Basophil% 0.4 % (0-1); Eosinophil# 0.16 X10^3/uL; Hematocrit 43.4 % (40-54); Lymphocyte # 1.66 X10^3/ul (0.83-4.51); Lymphocyte % 10.5 % (19-41); Mean Corpuscular Hgb 27.3 pg (27.0-32.0); Mean Corpuscular Volume 91.2 fL (80-94); Mean Platelet Vol. 10.6 fl (6.2-12.0); Monocyte# 0.38 X10^3/uL; Monocyte% 2.4 % (0-10); NRBC Flagged by Analyzer 0 % (0-5); Neutrophil # 13.53 X10^3/uL (2.7-7.7); Neutrophil % 85.1 % (47-70); Platelet Count 244 K/mm3 (150-450); RBC Distribution Width CV 14.6 % (11.6-14.6); RBC Distribution Width SD 48.7 fl (35.1-43.9); Red Blood Count 4.76 M/mm3 (4.6-6.2); White Blood Count 15.9 K/mm3 (4.4-11.0)
[2023-08-28] MEDS: Dextrose 50%-Water 25 GM/50 ML DISP.SYRIN IV (08:14)
[2023-08-28 08:22] LABS: Bedside Glucose 52 mg/dL (74-106)
--- NOTE | 2023-08-28 08:25 | RAD_ITS ---
STUDY: X-RAY CHEST REASON FOR EXAM: Male, 63 years old. SOB TECHNIQUE: Single AP portable view of the chest. COMPARISON: August 09, 2023 FINDINGS: 1. Consolidation has worsened in the bilateral perihilar and lower lobe regions and is moderate in severity. 2. Normal heart size 3. Stable mediastinum and osseous structures 4. Chronic elevation of the right hemidiaphragm and small lung volume There is no demonstrated abnormality of the visualized soft tissue structures of the upper abdomen. RAD/Chest 1 View (Portable) IMPRESSION: Consolidation has worsened in the bilateral perihilar and lower lobe regions and is moderate in severity. Electronically Signed: Timothy Langston MD at 8:49 EDT ,
[2023-08-28 08:29] LABS: BNP,B-Type NATRIURETIC PEPTIDE 172.2 pg/mL (0-100)
[2023-08-28 08:32] LABS: Anion Gap 0 (5-15); BUN 13 mg/dL (7-18); BUN/Creat Ratio 10.8 RATIO (10-20); Chloride 108 mmol/L (98-107); EST Glomerular Filtration Rate 65 mL/min (>60); Est Glom Filt Rate - Afr Amer 78 mL/min (>60); Estimated Creatinine Clearance 62.19 ml/min; Glucose 52 mg/dL (74-106); Potassium 4.5 mmol/L (3.5-5.1); Sodium Level 143 mmol/L (136-145); Troponin-I HS 15 pg/mL (3.0-78.0)
[2023-08-28] MEDS: Piperacil/Tazobactam 4.5 GM in 0.9% Normal Saline (100mL MB+) 100 ML IV (08:57)
[2023-08-28 08:58] LABS: Lactic Acid 1.4 mmol/L (0.4-1.9)
--- NOTE | 2023-08-28 10:33 | PCM.HP.STD ---
[facility] - General General Date of Admission: 08/28/23 Date of Service: 08/28/23 Chief Complaint: depressed MS, hypoxia, hypoglycemia. HPI Narrative REA HANNA, is a 63 M who presents to the ED with confusion, dyspnea and hypoglycemia. Blood sugar was noted to be low at the [facility]. EMS was called and pt received glucose. Pt was noted to be hypoxic at 85% and he was placed on BiPAP. His mentation improved, but he remained confused asking to go home while he still on the BiPAP and attempting to call his (while actually on the phone screen for voice mail). In the ED, he received dextrose, methylprednisolone, duoneb and piperacillin/tazobactam. Chest x-ray was concerning for bilateral pneumonia. Patient is confused and unable to provide any history, therefore, history is obtained through the emergency room physician. [facility] Medical History CELESTE (acute kidney injury) Ambulates with cane Amputation of one or more toes Anxiety and depression Arrhythmia Arthritis Aspiration pneumonia Atherosclerotic heart disease of [place] coronary artery without angina pectoris Back pain Back spasm Bilateral leg weakness Blind left eye Blister (nonthermal), left foot, initial encounter Bronchiectasis with (acute) exacerbation Cardiology follow-up encounter Chronic cough Chronic respiratory failure with hypoxia CKD (chronic kidney disease) COPD (chronic obstructive pulmonary disease) Coronary artery disease CPAP (continuous positive airway pressure) dependence Debility, unspecified Decubitus ulcer limited to breakdown of skin (stage 2) Depression Diabetes Essential hypertension Gastric reflux High cholesterol History of aspiration pneumonia History of diabetes mellitus History of echocardiogram History of edema History of gout History of heart attack History of non-ST elevation myocardial infarction (NSTEMI) (08/2016) History of pain when walking History of steroid therapy Hyperglycemia due to type 2 diabetes mellitus Hypertension Insulin dependent diabetes mellitus Irregular heart beat Kidney stones Leg pain, right Leukocytosis Low back pain Memory impairment Migraines Mood disorder Non-smoker Noncompliance by declining intervention or support On home oxygen therapy Peripheral vascular occlusive disease Pneumonia Prostate disease Pulmonary nodule, left Recurrent falls Right ankle pain Right foot pain Shortness of breath on exertion Silent aspiration Sleep apnea Tremor Type 2 diabetes mellitus with diabetic polyneuropathy Ulcer of left foot, limited to breakdown of skin Vision loss of left eye Wears glasses Wound of left lower extremity Home Medications acetaminophen 500 mg tablet 1,000 mg PO Q24H PRN PAIN 02/11/21 [History Last Taken 08/08/23] aspirin 81 mg tablet,delayed release (Adult Aspirin Regimen) 81 mg PO DAILY HEART HEALTH 11/05/21 [History Last Taken 08/09/23] peg [id number] 1 %-0.2 %-0.2 % eye drops (Artificial Tears ([id number])) 2 drp EACH EYE Q1H PRN DRY EYES #0 mL 11/14/21 [Rx Last Taken 06/04/23] gauze bandage 4 X 4 (Bordered Gauze) #14 ea 07/03/22 [Rx Last Taken Unknown] walker (Ultra-Light Rollator misc) #1 ea 07/21/22 [Rx Last Taken Unknown] pen needle, diabetic 33 gauge x /16 #200 ea 12/02/22 [Rx Last Taken Unknown] fluoxetine 20 mg capsule 20 mg PO DAILY ANXIETY 03/23/23 [History Last Taken 08/09/23] melatonin 3 mg tablet 3 mg PO QHS INSOMNIA 03/23/23 [History Last Taken 08/08/23] amlodipine 2.5 mg tablet 5 mg PO DAILY BLOOD PRESSURE 05/25/23 [History Last Taken 08/08/23] atorvastatin 80 mg tablet 80 mg PO QHS CHOLESTEROL 05/25/23 [History Last Taken 08/08/23] buspirone 7.5 mg tablet 7.5 mg PO TID ANXIETY 05/25/23 [History Last Taken 08/09/23] carvedilol 12.5 mg tablet 25 mg PO BID HEART 05/25/23 [History Last Taken 08/09/23] finasteride 5 mg tablet 5 mg PO DAILY PROSTATE 05/25/23 [History Last Taken 08/09/23] fluoxetine 40 mg capsule 40 mg PO DAILY ANXIETY 05/25/23 [History Last Taken 08/09/23] losartan 50 mg tablet 50 mg PO DAILY BLOOD PRESSURE 05/25/23 [History Last Taken 08/09/23] pantoprazole 40 mg tablet,delayed release 40 mg PO DAILY ACID REFLUX 05/25/23 [History Last Taken 08/09/23] trazodone 150 mg tablet 150 mg PO QHS INSOMNIA 05/25/23 [History Last Taken 08/08/23] clopidogrel 75 mg tablet 75 mg PO DAILY BLOOD THINNER #30 tabs 05/28/23 [Rx Last Taken 08/09/23] pregabalin 75 mg capsule 75 mg PO BID pain #10 caps 06/08/23 [Rx Last Taken 08/09/23] insulin glargine-yfgn 100 unit/mL (3 mL) subcutaneous pen 25 unit (0.25 mL) subcut BID diabetes #0 mL 07/15/23 [Rx Last Taken 08/09/23] insulin lispro 100 unit/mL subcutaneous pen (Humalog KwikPen (U-100) Insulin) 15 unit (0.15 mL) subcut TIDAC diabetes #0 mL 07/15/23 [Rx Last Taken 08/09/23] insulin lispro 100 unit/mL subcutaneous pen (Humalog KwikPen (U-100) Insulin) See Protocol subcut ACHS #0 mL 07/15/23 [Rx Last Taken 08/09/23] Wheelchair #1 ea 07/23/23 [Rx Last Taken Unknown] albuterol sulfate 90 mcg/actuation aerosol inhaler 2 puff inhalation Q4H PRN SOB 07/27/23 [History Last Taken Unknown] docusate sodium 100 mg capsule 100 mg PO TID PRN constipation 07/27/23 [History Last Taken Unknown] hydroxyzine HCl 10 mg tablet 10 mg PO TID 07/27/23 [History Last Taken 08/09/23] Lift Chair #1 ea 08/06/23 [Rx Last Taken Unknown] bisacodyl 10 mg rectal suppository 10 mg DC DAILY PRN constipation 08/28/23 [History Last Taken Unknown] isosorbide dinitrate 30 mg tablet 30 mg PO DAILY 08/28/23 [History Last Taken Unknown] Allergy/AdvReac Type Severity Reaction Status Date / Time allopurinol AdvReac Vomiting Verified 08/21/23 22:51 Influenza Virus Vaccines AdvReac Vomiting Verified 08/21/23 22:51 pneumococcal vaccine AdvReac Vomiting Verified 08/21/23 22:51 Family History Mother Diabetes Heart disease CHF Father Heart disease [place]/CAD Myocardial infarction Surgical History H/O lithotripsy History of angioplasty of peripheral vessel (2017) History of angioplasty of peripheral vessel History of ankle surgery History of cardiac catheterization History of coronary artery stent placement (08/2016) History of coronary artery stent placement History of esophagogastroduodenoscopy (EGD) History of left heart catheterization (11/15/17) History of thyroid surgery Hx of lithotripsy Hx of surgery to heart and great vessels, presenting hazards to health Hx of surgical procedure Hx of thyroidectomy Hx of toe surgery Hx of toe surgery PEG (percutaneous endoscopic gastrostomy) status Social History household members: spouse housing: apartment Smoking Status: Never smoker alcohol intake: never substance use type: does not use ROS ROS Narrative Unable to obtain as the patient is confused. Vital Signs Vital Signs Vital Signs: 08/28/23 07:51 08/28/23 07:58 08/28/23 08:00 Temperature 37.1 C 37.1 C Temperature Source Temporal Temporal Pulse Rate 114 H 111 H Respiratory Rate 26 H 22 H Respiratory Effort Respiratory Depth Respiratory Pattern Blood Pressure 183/133 H 183/133 H Blood Pressure Mean 149 149 Pulse Ox 85 85 85 Oxygen Delivery Method Bi-pap Bi-pap Bi-pap Oxygen Flow Rate (L/min) 15 15 Fraction of Inspired Oxygen (FIO2) 08/28/23 08:01 08/28/23 08:12 08/28/23 08:13 Temperature Temperature Source Pulse Rate 113 H Respiratory Rate 25 H Respiratory Effort Short of Breath Labored Respiratory Depth Deep Respiratory Pattern Tachypnea Blood Pressure Blood Pressure Mean Pulse Ox 95 95 Oxygen Delivery Method Bi-pap Bi-pap Bi-pap Oxygen Flow Rate (L/min) Fraction of Inspired Oxygen (FIO2) 70 70 08/28/23 08:05 08/28/23 08:00 08/28/23 08:30 Temperature Temperature Source Pulse Rate 114 H 110 H 97 Respiratory Rate 22 H 23 H 14 Respiratory Effort Respiratory Depth Respiratory Pattern Blood Pressure 239/88 H Blood Pressure Mean 138 Pulse Ox 98 96 Oxygen Delivery Method Bi-pap Oxygen Flow Rate (L/min) Fraction of Inspired Oxygen (FIO2) 100 08/28/23 09:00 08/28/23 09:47 08/28/23 09:47 Temperature 36.6 C 36.4 C L Temperature Source Temporal Temporal Pulse Rate 90 64 92 Respiratory Rate 14 14 20 H Respiratory Effort Respiratory Depth Respiratory Pattern Blood Pressure 187/70 H 187/90 H 180/90 H Blood Pressure Mean 109 122 120 Pulse Ox 98 95 98 Oxygen Delivery Method Room Air Bi-pap Bi-pap Oxygen Flow Rate (L/min) Fraction of Inspired Oxygen (FIO2) Weight Weight: 137.03 kg Body Mass Index (BMI) 44.6 Physical Exam Const Constitutional Narrative: Sitting up in bed on BiPAP. In no respiratory distress. Stating that he wants to go home while saying he is calling his to get him home, meanwhile he is looking at the [employer] screening on his phone. HEENT normocephalic and head/scalp atraumatic Resp Resp Narrative: Coarse breath sounds. Cardio regular rate, regular rhythm, S1 normal heart sound and S2 normal heart sound GI normal to inspection, nondistended, normoactive bowel sounds, soft to palpation, non-tender and non-distended Extremity normal to inspection Neuro oriented x3 Sensorium / Orientation: awake and alert Psych affect normal Results Lab / Micro Data Attestation: I reviewed the patient's lab results. Lab results narrative: Chest x-ray reviewed and showed bilateral patchy infiltrates. 08/28/23 07:50 08/28/23 07:50 Labs: Laboratory Results - last 24 hr 08/28/23 07:50: WBC 15.9 H, RBC 4.76, Hgb 13.0, Hct 43.4, MCV 91.2, MCH 27.3, MCHC 30.0 L, RDW Std Deviation 48.7 H, RDW Coeff of James 14.6, Plt Count 244, MPV 10.6, Immature Gran % (Auto) 0.600, Neut % (Auto) 85.1 H, Lymph % (Auto) 10.5 L, [place] % (Auto) 2.4, Eos % (Auto) 1.0, Baso % (Auto) 0.4, Absolute Neuts (auto) 13.5 H, Absolute Lymphs (auto) 1.66, Nucleated RBC % 0, Sodium 143, Potassium 4.5, Chloride 108 H, Carbon Dioxide 35.0 H, Anion Gap 0 L, BUN 13, Creatinine 1.20, Estim Creat Clear Calc 62.19, Est GFR (MDRD) Af Amer 78, Est GFR (MDRD) Non-Af 65, BUN/Creatinine Ratio 10.8, Glucose 52 L, Lactic Acid 1.4, Calcium 9.0, Troponin I High Sens 15, B-Natriuretic Peptide 172.2 H 08/28/23 08:04: POC Glucose 52 L Micro: Microbiology 08/28/23 08:08 Nasal Secretion SARS-CoV-2 & FLU Antigen (Rapid) - Final ABG Data ABG results: ABG 08/28/23 08:06 Specimen Type ART Sample Site L Radial pH 7.26 L Bicarbonate Actual 30.7 H Total CO2 33 Base Excess 4 H O2 Saturation 95 O2 % 100.0 ABG pCO2 68.7 H* ABG pO2 92 Respiration Rate 12 O2 Delivery Device Not entered Vent Mode avaps Tidal Volume 450.0 Crit Call To/Read Back Yes Blood Gas Notified Whom pl Blood Gas Notified Time 08:07:43 Radiology Impression Chest X-Ray 08/28/23 08:25 IMPRESSION: Consolidation has worsened in the bilateral perihilar and lower lobe regions and is moderate in severity. Electronically Signed: Timothy Langston MD at 8:49 EDT Reading Location ID and State: [facility] / [place] , Service support , Assessment & Plan Assessment/Plan (1) Acute and chronic respiratory failure, unspecified whether with hypoxia or hypercapnia: QUALIFIERS: Respiratory failure complication: hypoxia and hypercapnia Qualified Code(s): J96.21 - Acute and chronic respiratory failure with hypoxia; J96.22 - Acute and chronic respiratory failure with hypercapnia PLAN: Multifactorial: Secondary to COPD, pneumonia On BiPAP. Wean as able. Consult CCM Treat the underlying pneumonia Bronchodilators and methylprednisolone (2) Pneumonia: QUALIFIERS: Pneumonia type: due to unspecified organism Laterality: bilateral Lung location: unspecified part of lung Qualified Code(s): J18.9 - Pneumonia, unspecified organism PLAN: Suspected gram-negative Given the patient's now his third hospitalization within the past month, would be concerned about his care required pneumonia. Patient be on antibiotics with piperacillin/tazobactam and vancomycin Pulmonary toilet COVID-19 negative Check antigens for strep and Legionella. Check sputum culture. (3) Encephalopathy acute: PLAN: Likely secondary to CO2 narcosis as well as hypoglycemia We will hold off on buspirone, fluoxetine, pregabalin and trazodone for the time being until his mental status improves. Patient appears to be improved thus far with being on the BiPAP and having ventilation. Consider imaging if symptoms persist or worsen. (4) Hypoglycemia: PLAN: Likely iatrogenic from his insulin regimen. We will hold off on the scheduled insulin for now. Patient did receive glucose prior to arrival as well as dextrose in the emergency room. Monitor closely. PLAN: Plan Chronic conditions Diabetes mellitus type 2: Insulin-dependent. Scheduled insulin be held for now and patient be on sliding scale insulin. Hypertension: Etc. at this time. Continue with the losartan, amlodipine CAD: Patient has had a PCI back in 2016. Continue with aspirin, atorvastatin and clopidogrel PAD: Status post arthrectomy. Continue with aspirin and clopidogrel VTE prophylaxis: Subcu LMWH CODE STATUS: Per previous documentation: Patient is full code. Charges/Coding Visit Charges Inpatient E&M: 82242 Init Hosp L3
--- NOTE | 2023-08-28 11:31 | CASEMGMT ---
Social Work Pt is on [employer]. SW met w/pt's significant other and She LEGGETT. She states pt was to leave [facility] on Wednesday, they had all decided this together. She states pt had said he wanted to stay at SNF until Wednesday, and then he was to go home. As per She, pt did well there, was up and walking. She states if SNF is needed again, [facility]. No SNF list needed at this time. SW to follow up Wednesday to see if pt needs re-referred to [facility] at that time. MAURA Jackson
[2023-08-28] MEDS: Acetaminophen 500 MG Tablet 1000 MG PO (12:39)
[2023-08-28] MEDS: Methylprednisolone Sod Succ 40 MG/ML VIAL IV ×2 (13:55→21:49)
[2023-08-28] MEDS: Vancomycin HCl 2,000 MG in 0.9% Normal Saline (500mL Bag) 500 ML 250 MG IV (13:55)
[2023-08-28 14:21] LABS: Blood Gas Specimen Type VEN; O2 Delivery Device BiPAP; SITE L Radial; VBG BASE EXCESS 8 mmol/L (-1.0-3.5); VBG Bicarbonate 33 mmol/L (22-26); VBG PO2 42 mmHg (25-40); VBG SO2 74 % (50-70); VBG TCO2 35 mmol/L (23-33); VBG pCO2 56.8 mmHg (41-51); VBG pH 7.37 (7.32-7.42)
--- NOTE | 2023-08-28 14:55 | PCM.RX.CS ---
Consult Antibiotic Management Pharmacy has been consulted to manage selected antiobiotic: Vancomycin Type of Intervention Type of Consult: New start Suspected Infection Suspected Infection: Pneumonia Prior Doses of Antibiotics Prior Doses of Antibiotics Received/Current Regimen: 08/28/23 @ 1355 Labs Labs: Sodium 143 mmol/L (136-145) 08/28/23 07:50 Potassium 4.5 mmol/L (3.5-5.1) 08/28/23 07:50 Chloride 108 mmol/L (98-107) H 08/28/23 07:50 Carbon Dioxide 35.0 mmol/L (21.0-32.0) H 08/28/23 07:50 Anion Gap 0 (5-15) L 08/28/23 07:50 BUN 13 mg/dL (7-18) 08/28/23 07:50 Creatinine 1.20 mg/dL (0.70-1.30) 08/28/23 07:50 Est GFR (MDRD) Af Amer 78 mL/min (>60) 08/28/23 07:50 Est GFR (MDRD) Non-Af 65 mL/min (>60) 08/28/23 07:50 BUN/Creatinine Ratio 10.8 RATIO (10-20) 08/28/23 07:50 Glucose 52 mg/dL (74-106) L 08/28/23 07:50 Microbiology Microbiology: Microbiology 08/28/23 08:08 Nasal Secretion SARS-CoV-2 & FLU Antigen (Rapid) - Final Dosing Weight Weight used for dosin kg Estimated Creatinine Clearance Estimated Creatinine Clearance: 82 Pharmacy Plan for Drug Dosing Pharmacy Plan for Drug Dosing: Start VAncomycin 2000mg every 12 hours. Start 08/29/23 @ 0130 Pharmacy Service will continue to monitor and adjust dosing as required. Follow-Up Labs Follow-Up Labs: Trough: Vancomycin Date/Time Labs Ordered Labs to be done on [date and time ordered]: 08/30/23 @ 0130
[2023-08-28] MEDS: Piperacil/Tazobactam 3.375 GM in 0.9% Normal Saline (50mL MB+) 50 ML IV ×2 (15:46→21:50)
[2023-08-28 16:37] LABS: Bedside Glucose 106 mg/dL (74-106)
[2023-08-28 16:39] LABS: Bedside Glucose 75 mg/dL (74-106)
[2023-08-28] MEDS: Carvedilol 12.5 MG Tablet 25 MG PO (16:45)
[2023-08-28] MEDS: Enoxaparin 40 MG/0.4 ML Syringe SC (21:48)
[2023-08-28] MEDS: Atorvastatin Calcium 80 MG Tablet PO (21:48)
[2023-08-28 22:24] LABS: Bedside Glucose 226 mg/dL (74-106)
[2023-08-29] VITALS (27 sets, daily range): BP systolic 123–196; BP diastolic 60–106; PULSE 58–91; RESP 12–20; TEMP 36.2–37; O2SAT 92–98; BMI 40.6
[2023-08-29] MEDS: Insulin Lispro 100 UNIT/ML INSULN.PEN SC ×5 (00:46→21:09)
[2023-08-29] MEDS: hydrALAZINE 20 MG/ML Vial 10 MG IV (00:47)
[2023-08-29 01:02] LABS: Bedside Glucose 226 mg/dL (74-106)
[2023-08-29] MEDS: Ipratropium/Albuterol Sulfate 3 ML AMPUL.NEB INHALATION ×5 (02:14→19:08)
[2023-08-29] MEDS: Vancomycin HCl 2,000 MG in 0.9% Normal Saline (500mL Bag) 500 ML 250 MG IV ×2 (02:20→12:57)
[2023-08-29 04:38] LABS: Absolute Lymphocyte Count 1.23 X10^3/uL (0.83-4.51); Absolute Neutrophil Count 25.5 X10^3/uL (2.0-7.7); Basophil# 0.08 X10^3/uL; Basophil% 0.3 % (0-1); Hemoglobin 11.5 g/dL (13.0-16.5); Lymphocyte # 1.23 X10^3/ul (0.83-4.51); Lymphocyte % 4.4 % (19-41); Mean Corp Hgb Conc 31.1 g/dL (32-36); Mean Corpuscular Hgb 27.4 pg (27.0-32.0); Mean Corpuscular Volume 88.1 fL (80-94); Mean Platelet Vol. 11.2 fl (6.2-12.0); Monocyte# 0.67 X10^3/uL; Monocyte% 2.4 % (0-10); NRBC Flagged by Analyzer 0 % (0-5); Neutrophil # 25.54 X10^3/uL (2.7-7.7); Neutrophil % 92.1 % (47-70); POSITIVE DIFFERENTIAL YES; Platelet Count 182 K/mm3 (150-450); RBC Distribution Width CV 14.5 % (11.6-14.6); RBC Distribution Width SD 46.6 fl (35.1-43.9); White Blood Count 27.8 K/mm3 (4.4-11.0)
[2023-08-29 04:43] LABS: Differential Indicated SCAN CRITERIA MET
[2023-08-29 05:11] LABS: Anion Gap 3 (5-15); BUN 20 mg/dL (7-18); BUN/Creat Ratio 16.7 RATIO (10-20); Calcium,Total 8.9 mg/dL (8.5-10.1); Chloride 107 mmol/L (98-107); EST Glomerular Filtration Rate 65 mL/min (>60); Est Glom Filt Rate - Afr Amer 78 mL/min (>60); Estimated Creatinine Clearance 64.21 ml/min; Glucose 277 mg/dL (74-106); Potassium 4.5 mmol/L (3.5-5.1); Sodium Level 142 mmol/L (136-145)
[2023-08-29 05:16] LABS: Differential Comment SCANNED
[2023-08-29] MEDS: Methylprednisolone Sod Succ 40 MG/ML VIAL IV ×3 (06:16→22:01)
[2023-08-29] MEDS: Piperacil/Tazobactam 3.375 GM in 0.9% Normal Saline (50mL MB+) 50 ML IV ×3 (06:16→21:08)
--- NOTE | 2023-08-29 07:20 | PN.HOSP_ITS ---
Reason for Visit Reason for Visit: Diagnoses Hypoglycemia, unspecified (08/28/23) Encephalopathy, unspecified (08/28/23) Pneumonia, unspecified organism (08/28/23) Acute and chronic respiratory failure with hypoxia (08/28/23) Acute and chronic respiratory failure with hypercapnia (08/28/23) Subjective Subjective Did well. Weaned down to nasal canula. Objective Data Objective Data Vital Signs: Vital Signs Temp Pulse Resp BP Pulse Ox O2 Del Method O2 Flow Rate 36.7 C 85 18 133/60 H 94 Nasal Cannula 2 08/29/23 06:00 08/29/23 07:10 08/29/23 07:10 08/29/23 06:00 08/29/23 07:10 08/29/23 07:10 08/29/23 07:10 FiO2 25 08/29/23 04:47 Oxygen Flow Rate (L/min) 2 Oxygen Delivery Method Nasal Cannula Weight: 128.4 kg Body Mass Index (BMI) 40.6 Intake & Output: Intake and Output for Last 24 Hours 08/27/23 08/28/23 08/29/23 23:59 23:59 23:59 Intake Total 1290 / 1290 590 / 590 Output Total 800 / 800 350 / 350 Balance 490 / 490 240 / 240 Lab / Micro Data 08/29/23 04:30 08/29/23 04:30 Labs: Laboratory Results - last 24 hr 08/28/23 07:50: WBC 15.9 H, RBC 4.76, Hgb 13.0, Hct 43.4, MCV 91.2, MCH 27.3, MCHC 30.0 L, RDW Std Deviation 48.7 H, RDW Coeff of James 14.6, Plt Count 244, MPV 10.6, Immature Gran % (Auto) 0.600, Neut % (Auto) 85.1 H, Lymph % (Auto) 10.5 L, [place] % (Auto) 2.4, Eos % (Auto) 1.0, Baso % (Auto) 0.4, Absolute Neuts (auto) 13.5 H, Absolute Lymphs (auto) 1.66, Nucleated RBC % 0, Sodium 143, Potassium 4.5, Chloride 108 H, Carbon Dioxide 35.0 H, Anion Gap 0 L, BUN 13, Creatinine 1.20, Estim Creat Clear Calc 62.19, Est GFR (MDRD) Af Amer 78, Est GFR (MDRD) Non-Af 65, BUN/Creatinine Ratio 10.8, Glucose 52 L, Lactic Acid 1.4, Calcium 9.0, Troponin I High Sens 15, B-Natriuretic Peptide 172.2 H 08/28/23 08:04: POC Glucose 52 L 08/28/23 12:00: POC Glucose 75 08/28/23 16:18: POC Glucose 106 08/28/23 21:36: POC Glucose 226 H 08/29/23 00:44: POC Glucose 226 H 08/29/23 04:30: WBC 27.8 H, RBC 4.20 L, Hgb 11.5 L, Hct 37.0 L, MCV 88.1, MCH 27.4, MCHC 31.1 L, RDW Std Deviation 46.6 H, RDW Coeff of James 14.5, Plt Count 182, MPV 11.2, Immature Gran % (Auto) 0.800, Neut % (Auto) 92.1 H, Lymph % (Auto) 4.4 L, [place] % (Auto) 2.4, Eos % (Auto) 0.0, Baso % (Auto) 0.3, Absolute Neuts (auto) 25.5 H, Absolute Lymphs (auto) 1.23, Nucleated RBC % 0, Differential Comment SCANNED, Sodium 142, Potassium 4.5, Chloride 107, Carbon Dioxide 32.0, Anion Gap 3 L, BUN 20 H, Creatinine 1.20, Estim Creat Clear Calc 64.21, Est GFR (MDRD) Af Amer 78, Est GFR (MDRD) Non-Af 65, BUN/Creatinine Ratio 16.7, Glucose 277 H, Calcium 8.9 Micro: Microbiology 08/28/23 18:55 Urine, Random Legionella Antigen - Final 08/28/23 18:55 Urine, Random Streptococcus pneumoniae Antigen (M - Final 08/28/23 08:08 Nasal Secretion SARS-CoV-2 & FLU Antigen (Rapid) - Final ABG Data ABG results: ABG 08/28/23 08/28/23 08:06 14:17 Specimen Type ART YA Sample Site L Radial L Radial pH 7.26 L Bicarbonate Actual 30.7 H Total CO2 33 Base Excess 4 H O2 Saturation 95 O2 % 100.0 30.0 ABG pCO2 68.7 H* ABG pO2 92 VBG pH 7.37 VBG pO2 42 H VBG HCO3 33 H VBG Total CO2 35 H VBG O2 Sat (Calc) 74 H VBG Base Excess 8 H POC Mix VBG pCO2 Pt Tmp 56.8 H Respiration Rate 12 O2 Delivery Device Not entered BiPAP Vent Mode avaps Tidal Volume 450.0 450.0 Crit Call To/Read Back Yes Blood Gas Notified Whom pl Blood Gas Notified Time 08:07:43 Radiography Diagnostic Testing: Radiology Impression Chest X-Ray 08/28/23 08:25 IMPRESSION: Consolidation has worsened in the bilateral perihilar and lower lobe regions and is moderate in severity. Electronically Signed: Timothy Langston MD at 8:49 EDT , Physical Exam Const alert Constitutional Narrative: anxious. HEENT head/scalp atraumatic and moist oral mucous membranes Resp normal respiratory effort, no retractions, no use of accessory muscles and clear to auscultation bilaterally Cardio regular rate, regular rhythm, S1 normal heart sound and S2 normal heart sound GI normal to inspection, nondistended, normoactive bowel sounds and soft to palpation Assessment & Plan Assessment/Plan (1) Acute and chronic respiratory failure, unspecified whether with hypoxia or hypercapnia: QUALIFIERS: Respiratory failure complication: hypoxia and hypercapnia Qualified Code(s): J96.21 - Acute and chronic respiratory failure with hypoxia; J96.22 - Acute and chronic respiratory failure with hypercapnia PLAN: Improved Multifactorial: Secondary to COPD, pneumonia BiPAP w sleep and naps. Consult CCM Treat the underlying pneumonia Bronchodilators and methylprednisolone (2) Pneumonia: QUALIFIERS: Laterality: bilateral Lung location: unspecified part of lung Pneumonia type: due to unspecified organism Qualified Code(s): J18.9 - Pneumonia, unspecified organism PLAN: Suspected gram-negative Given the patient's now his third hospitalization within the past month, would be concerned about his care required pneumonia. Patient be on antibiotics with piperacillin/tazobactam and vancomycin Pulmonary toilet COVID-19 negative Check antigens for strep and Legionella. Check sputum culture. (3) Encephalopathy acute: PLAN: Resolved Likely secondary to CO2 narcosis as well as hypoglycemia We will hold off on buspirone, fluoxetine, pregabalin and trazodone for the time being until his mental status improves. Patient appears to be improved thus far with being on the BiPAP and having ventilation. Consider imaging if symptoms persist or worsen. (4) Hypoglycemia: PLAN: Resolved Likely iatrogenic from his insulin regimen. We will hold off on the scheduled insulin for now. Patient did receive glucose prior to arrival as well as dextrose in the emergency room. Monitor closely. PLAN: Plan Chronic conditions * Diabetes mellitus type 2: Insulin-dependent. Scheduled insulin be held for now and patient be on sliding scale insulin. * Hypertension: Etc. at this time. Continue with the losartan, amlodipine * CAD: Patient has had a PCI back in 2016. Continue with aspirin, atorvastatin and clopidogrel * PAD: Status post arthrectomy. Continue with aspirin and clopidogrel VTE prophylaxis: Subcu LMWH CODE STATUS: Per previous documentation: Patient is full code. Charges/Coding Visit Charges Inpatient E&M: 16845 Subs Hosp L2
[2023-08-29 07:46] LABS: Bedside Glucose 232 mg/dL (74-106)
--- NOTE | 2023-08-29 08:29 | CON.PCM.CC_ITS ---
Assessment & Plan Assessment/Plan (1) Acute exacerbation of chronic obstructive pulmonary disease: (2) Respiratory failure with hypoxia: PLAN: Plan RECOMMENDATIONS: 1. Continue BiPAP with sleep and rescue 2. Agree with empiric antibiotics, bronchodilators and steroids 3. Send viral panel 4. Titrate insulin as necessary 5. Aggressive control of blood pressure 6. Likely okay to leave the intensive care unit IMPRESSIONS: 1. Acute on chronic combined respiratory failure Patient's ABG on presentation does show acidosis and increased AA gradient. X-ray does show a possible infiltrate in the left lower lobe. Pat mona is in the hospital frequently, so broad-spectrum antibiotics would be indicated pending culture. We will obtain a viral panel as patient has had significant fever overnight. That being said, patient's respiratory status appears to be much improved today. Patient may have an element of flash pulmonary edema given significantly elevated blood pressures on presentation. Patient does have marginal baseline respiratory function and may be having some issues dealing with metabolic demand of fever 2. Metabolic encephalopathy Patient with significant confusion on presentation. This may be secondary to CO2 retention versus hypoglycemia versus secondary process. This appears to be much improved today compared to previous documentation. Continue to monitor clinically 3. Insulin-dependent diabetes mellitus/hypertension/CAD/PVD Complicates care, management, recovery and prognosis. Patient with some hypoglycemia at presentation, but this may be secondary to decreased p.o. intake given problem #1. Blood pressure has been poorly controlled overnight. Okay to continue baseline medication. HPI Consult Data Date of Consult: 08/29/23 HPI Narrative Reason for Consultation: Possible sepsis HPI Narrative: REA HANNA is a 63 M, with past medical history listed below and well-known to us from previous admissions, who presents to [facility] on 08/28/2023 secondary to change in mental status. Patient had EMS called and was found to have a blood sugar of 52. Patient was also noted to be short of breath with very low sats. Patient does have a history of advanced COPD and is on 4 L/min at all times. Patient was therefore transferred to the hospital for further evaluation. In the ER, patient was initially afebrile, but tachycardic at 114 bpm. Patient also hypertensive at 183/133 and saturating 85% despite pulse ox therapy. Patient did have a blood pressure as high as 239/88 recorded. Patient was noted to have a pH of 7.27 with a PCO2 of 68.7 indicating acute on chronic hypercarbic respiratory failure. Laboratory work-up showed a white blood cell count of 15.9, hemoglobin of 13 and platelets of 244. Chemistries showed an elevated bicarbonate of 35 with a creatinine of 1.2 and platelets of 52. BNP was slightly elevated at 172 and ABG on AVAPS showed CO2 retention. Chest x-ray showed consolidation in the left lower lobe. Patient was admitted to the intensive care unit for further evaluation. Since being admitted to the hospital, patient has done okay. Patient has had significant hypertension and fever as high as 38.8 ?C. Patient did have to be treated with hydralazine secondary to hypertension. This morning, patient states he feels relatively well. Patient is a relatively poor historian and not able to provide much additional information including a review of systems. [facility] Medical History CELESTE (acute kidney injury) Ambulates with cane Amputation of one or more toes Anxiety and depression Arrhythmia Arthritis Aspiration pneumonia Atherosclerotic heart disease of [place] coronary artery without angina pectoris Back pain Back spasm Bilateral leg weakness Blind left eye Blister (nonthermal), left foot, initial encounter Bronchiectasis with (acute) exacerbation Cardiology follow-up encounter Chronic cough Chronic respiratory failure with hypoxia CKD (chronic kidney disease) COPD (chronic obstructive pulmonary disease) Coronary artery disease CPAP (continuous positive airway pressure) dependence Debility, unspecified Decubitus ulcer limited to breakdown of skin (stage 2) Depression Diabetes Essential hypertension Gastric reflux High cholesterol History of aspiration pneumonia History of diabetes mellitus History of echocardiogram History of edema History of gout History of heart attack History of non-ST elevation myocardial infarction (NSTEMI) (08/2016) History of pain when walking History of steroid therapy Hyperglycemia due to type 2 diabetes mellitus Hypertension Insulin dependent diabetes mellitus Irregular heart beat Kidney stones Leg pain, right Leukocytosis Low back pain Memory impairment Migraines Mood disorder Non-smoker Noncompliance by declining intervention or support On home oxygen therapy Peripheral vascular occlusive disease Pneumonia Prostate disease Pulmonary nodule, left Recurrent falls Right ankle pain Right foot pain Shortness of breath on exertion Silent aspiration Sleep apnea Tremor Type 2 diabetes mellitus with diabetic polyneuropathy Ulcer of left foot, limited to breakdown of skin Vision loss of left eye Wears glasses Wound of left lower extremity Home Medications acetaminophen 500 mg tablet 1,000 mg PO Q24H PRN PAIN 02/11/21 [History Last Taken 08/08/23] aspirin 81 mg tablet,delayed release (Adult Aspirin Regimen) 81 mg PO DAILY HEART HEALTH 11/05/21 [History Last Taken 08/09/23] peg [id number] 1 %-0.2 %-0.2 % eye drops (Artificial Tears ([id number])) 2 drp EACH EYE Q1H PRN DRY EYES #0 mL 11/14/21 [Rx Last Taken 06/04/23] gauze bandage 4 X 4 (Bordered Gauze) #14 ea 07/03/22 [Rx Last Taken Unknown] walker (Ultra-Light Rollator misc) #1 ea 07/21/22 [Rx Last Taken Unknown] pen needle, diabetic 33 gauge x 04/13 #200 ea 12/02/22 [Rx Last Taken Unknown] fluoxetine 20 mg capsule 20 mg PO DAILY ANXIETY 03/23/23 [History Last Taken 08/09/23] melatonin 3 mg tablet 3 mg PO QHS INSOMNIA 03/23/23 [History Last Taken 08/08/23] amlodipine 2.5 mg tablet 2.5 mg PO DAILY BLOOD PRESSURE 05/25/23 [History Last Taken 08/08/23] atorvastatin 80 mg tablet 80 mg PO QHS CHOLESTEROL 05/25/23 [History Last Taken 08/08/23] buspirone 7.5 mg tablet 7.5 mg PO TID ANXIETY 05/25/23 [History Last Taken 08/09/23] carvedilol 12.5 mg tablet 25 mg PO BID HEART 05/25/23 [History Last Taken 08/09/23] finasteride 5 mg tablet 5 mg PO DAILY PROSTATE 05/25/23 [History Last Taken 08/09/23] fluoxetine 40 mg capsule 40 mg PO DAILY ANXIETY 05/25/23 [History Last Taken 08/09/23] losartan 50 mg tablet 50 mg PO DAILY BLOOD PRESSURE 05/25/23 [History Last Taken 08/09/23] pantoprazole 40 mg tablet,delayed release 40 mg PO DAILY ACID REFLUX 05/25/23 [History Last Taken 08/09/23] trazodone 150 mg tablet 150 mg PO QHS INSOMNIA 05/25/23 [History Last Taken 08/08/23] clopidogrel 75 mg tablet 75 mg PO DAILY BLOOD THINNER #30 tabs 05/28/23 [Rx Last Taken 08/09/23] pregabalin 75 mg capsule 75 mg PO BID pain #10 caps 06/08/23 [Rx Last Taken 08/09/23] insulin glargine-yfgn 100 unit/mL (3 mL) subcutaneous pen 25 unit (0.25 mL) subcut BID diabetes #0 mL 07/15/23 [Rx Last Taken 08/09/23] insulin lispro 100 unit/mL subcutaneous pen (Humalog KwikPen (U-100) Insulin) 15 unit (0.15 mL) subcut TIDAC diabetes #0 mL 07/15/23 [Rx Last Taken 08/09/23] insulin lispro 100 unit/mL subcutaneous pen (Humalog KwikPen (U-100) Insulin) See Protocol subcut ACHS #0 mL 07/15/23 [Rx Last Taken 08/09/23] Wheelchair #1 ea 07/23/23 [Rx Last Taken Unknown] albuterol sulfate 90 mcg/actuation aerosol inhaler 2 puff inhalation Q4H PRN SOB 07/27/23 [History Last Taken Unknown] docusate sodium 100 mg capsule 100 mg PO TID PRN constipation 07/27/23 [History Last Taken Unknown] hydroxyzine HCl 10 mg tablet 10 mg PO TID 07/27/23 [History Last Taken 08/09/23] Lift Chair #1 ea 08/06/23 [Rx Last Taken Unknown] bisacodyl 10 mg rectal suppository 10 mg [place] DAILY PRN constipation 08/28/23 [History Last Taken Unknown] isosorbide dinitrate 30 mg tablet 30 mg PO DAILY 08/28/23 [History Last Taken Unknown] multivitamin with minerals (DAILY VITAMIN FORMULA-MINERALS tablet) 1 tab PO DAILY skin health 08/28/23 [History Last Taken 08/28/23] Allergy/AdvReac Type Severity Reaction Status Date / Time allopurinol AdvReac Vomiting Verified 08/21/23 22:51 Influenza Virus Vaccines AdvReac Vomiting Verified 08/21/23 22:51 pneumococcal vaccine AdvReac Vomiting Verified 08/21/23 22:51 Family History Mother Diabetes Heart disease CHF Father Heart disease [place]/CAD Myocardial infarction Surgical History H/O lithotripsy History of angioplasty of peripheral vessel (2017) History of angioplasty of peripheral vessel History of ankle surgery History of cardiac catheterization History of coronary artery stent placement (08/2016) History of coronary artery stent placement History of esophagogastroduodenoscopy (EGD) History of left heart catheterization (11/15/17) History of thyroid surgery Hx of lithotripsy Hx of surgery to heart and great vessels, presenting hazards to health Hx of surgical procedure Hx of thyroidectomy Hx of toe surgery Hx of toe surgery PEG (percutaneous endoscopic gastrostomy) status Social History household members: spouse housing: apartment Smoking Status: Never smoker alcohol intake: never substance use type: does not use ROS ROS Narrative See HPI Physical Exam Const alert, oriented x3 and no apparent distress Constitutional Narrative: Patient on nasal cannula during my evaluation HEENT normocephalic and head/scalp atraumatic Eyes PERRL, EOMs intact bilaterally, conjunctivae normal and no scleral icterus Neck full ROM and no lymphadenopathy Chest Chest Narrative: Increased AP diameter Resp Auscultation: wheezes; Negative for rales or rhonchi Cardio regular rate, regular rhythm, S1 normal heart sound and S2 normal heart sound GI normal to inspection, nondistended, normoactive bowel sounds, soft to palpation, non-tender and non-distended Extremity normal to inspection Neuro oriented x3 Sensorium / Orientation: awake and alert Psych affect normal Medical Records Data Attestation: I reviewed the patient's medical records Lab / Micro Data Attestation: I reviewed the patient's lab results. 08/29/23 04:30 08/29/23 04:30 Labs: Laboratory Results - last 24 hr 08/28/23 07:50: Sodium 143, Potassium 4.5, Chloride 108 H, Carbon Dioxide 35.0 H , Anion Gap 0 L, BUN 13, Creatinine 1.20, Estim Creat Clear Calc 62.19, Est GFR (MDRD) Af Amer 78, Est GFR (MDRD) Non-Af 65, BUN/Creatinine Ratio 10.8, Glucose 52 L, Lactic Acid 1.4, Calcium 9.0, Troponin I High Sens 15, B-Natriuretic Peptide 172.2 H 08/28/23 12:00: POC Glucose 75 08/28/23 16:18: POC Glucose 106 08/28/23 21:36: POC Glucose 226 H 08/29/23 00:44: POC Glucose 226 H 08/29/23 04:30: WBC 27.8 H, RBC 4.20 L, Hgb 11.5 L, Hct 37.0 L, MCV 88.1, MCH 27.4, MCHC 31.1 L, RDW Std Deviation 46.6 H, RDW Coeff of James 14.5, Plt Count 182, MPV 11.2, Immature Gran % (Auto) 0.800, Neut % (Auto) 92.1 H, Lymph % (Auto) 4.4 L, [place] % (Auto) 2.4, Eos % (Auto) 0.0, Baso % (Auto) 0.3, Absolute Neuts (auto) 25.5 H, Absolute Lymphs (auto) 1.23, Nucleated RBC % 0, Dif ferential Comment SCANNED, Sodium 142, Potassium 4.5, Chloride 107, Carbon Dioxide 32.0, Anion Gap 3 L, BUN 20 H, Creatinine 1.20, Estim Creat Clear Calc 64.21, Est GFR (MDRD) Af Amer 78, Est GFR (MDRD) Non-Af 65, BUN/Creatinine Ratio 16.7, Glucose 277 H, Calcium 8.9 08/29/23 07:25: POC Glucose 232 H Micro: Microbiology 08/28/23 18:55 Urine, Random Legionella Antigen - Final 08/28/23 18:55 Urine, Random Streptococcus pneumoniae Antigen (M - Final 08/28/23 08:08 Nasal Secretion SARS-CoV-2 & FLU Antigen (Rapid) - Final ABG Data ABG results: ABG 08/28/23 14:17 Specimen Type YA Sample Site L Radial O2 % 30.0 VBG pH 7.37 VBG pO2 42 H VBG HCO3 33 H VBG Total CO2 35 H VBG O2 Sat (Calc) 74 H VBG Base Excess 8 H POC Mix VBG pCO2 Pt Tmp 56.8 H O2 Delivery Device BiPAP Tidal Volume 450.0 Attestation: I personally reviewed and interpreted this ABG as follows: (See HPI) Radiology Impression Chest X-Ray 08/28/23 08:25 IMPRESSION: Consolidation has worsened in the bilateral perihilar and lower lobe regions and is moderate in severity. Electronically Signed: Timothy Langston MD at 8:49 EDT , Charges/Coding Visit Charges Inpatient E&M: 66559 Init Hosp L3
[2023-08-29] MEDS: Carvedilol 12.5 MG Tablet 25 MG PO ×2 (08:31→16:08)
[2023-08-29] MEDS: Pantoprazole Sodium 40 MG Tablet PO (08:31)
[2023-08-29] MEDS: Enoxaparin 40 MG/0.4 ML Syringe SC ×2 (08:31→21:08)
[2023-08-29] MEDS: Clopidogrel Bisulfate 75 MG Tablet PO (08:31)
[2023-08-29] MEDS: amLODIPine 2.5 MG Tablet 5 MG PO (08:32)
[2023-08-29] MEDS: Isosorbide DN 30 MG Tablet PO (08:33)
[2023-08-29] MEDS: Losartan Potassium 50 MG Tablet PO (08:33)
[2023-08-29] MEDS: Aspirin E.C. 81 MG Tablet PO (08:34)
[2023-08-29] MEDS: Finasteride 5 MG Tablet PO (08:34)
[2023-08-29 12:17] LABS: Bedside Glucose 234 mg/dL (74-106)
[2023-08-29] MEDS: hydrOXYzine 10 MG Tablet PO ×2 (12:44→22:01)
[2023-08-29] MEDS: Fluoxetine HCl 40 MG CAPSULE PO (12:44)
[2023-08-29] MEDS: FLUoxetine 20 MG Capsule PO (12:44)
[2023-08-29] MEDS: busPIRone 15 MG TABLET 7.5 MG PO ×2 (12:44→22:01)
[2023-08-29] MEDS: Pregabalin 75 MG Capsule PO ×2 (12:54→21:08)
[2023-08-29 17:09] LABS: Bedside Glucose 266 mg/dL (74-106)
[2023-08-29] MEDS: Atorvastatin Calcium 80 MG Tablet PO (21:08)
[2023-08-29] MEDS: traZODone 50 MG Tablet 150 MG PO (21:08)
[2023-08-29] MEDS: MELATONIN 3 MG TABLET PO (21:09)
[2023-08-30] VITALS (10 sets, daily range): BP systolic 163–183; BP diastolic 80–102; PULSE 53–77; RESP 14–28; TEMP 36.2–36.6; O2SAT 94–99; BMI 40.6
[2023-08-30 00:47] LABS: Bedside Glucose 271 mg/dL (74-106)
[2023-08-30 01:42] LABS: Vancomycin, Trough Level 24.7 ug/mL (5.0-15.0)
--- NOTE | 2023-08-30 01:49 | PCM.RX.CS ---
Consult Antibiotic Management Pharmacy has been consulted to manage selected antiobiotic: Vancomycin Type of Intervention Type of Consult: Follow-up Suspected Infection Suspected Infection: Pneumonia Labs Labs: Sodium 142 mmol/L (136-145) 08/29/23 04:30 Potassium 4.5 mmol/L (3.5-5.1) 08/29/23 04:30 Chloride 107 mmol/L (98-107) 08/29/23 04:30 Carbon Dioxide 32.0 mmol/L (21.0-32.0) 08/29/23 04:30 Anion Gap 3 (5-15) L 08/29/23 04:30 BUN 20 mg/dL (7-18) H 08/29/23 04:30 Creatinine 1.20 mg/dL (0.70-1.30) 08/29/23 04:30 Est GFR (MDRD) Af Amer 78 mL/min (>60) 08/29/23 04:30 Est GFR (MDRD) Non-Af 65 mL/min (>60) 08/29/23 04:30 BUN/Creatinine Ratio 16.7 RATIO (10-20) 08/29/23 04:30 Glucose 277 mg/dL (74-106) H 08/29/23 04:30 Vancomycin Trough 24.7 ug/mL (5.0-15.0) H 08/30/23 01:05 Microbiology Microbiology: Microbiology 08/28/23 18:55 Urine, Random Legionella Antigen - Final 08/28/23 18:55 Urine, Random Streptococcus pneumoniae Antigen (M - Final 08/28/23 08:08 Nasal Secretion SARS-CoV-2 & FLU Antigen (Rapid) - Final Dosing Weight Weight used for dosin.4 kg Estimated Creatinine Clearance Estimated Creatinine Clearance: 84 Goal Trough Goal Trough: 15-20 mcg/mL Pharmacy Plan for Drug Dosing Pharmacy Plan for Drug Dosing: Vancomycin trough level of 24.7, drawn 12 hours post-dose, was above the target range of 15-20. Will hold current dosing, and draw a random level in 12 hours. Further dosing will be determined from that result. Pharmacy Service will continue to monitor and adjust dosing as required. Follow-Up Labs Follow-Up Labs: Trough: Vancomycin (random) Date/Time Labs Ordered Labs to be done on [date and time ordered]: 08/30/23 @1300
[2023-08-30] MEDS: Vancomycin Trough/Random Due 1 LAB MC (02:02)
[2023-08-30] MEDS: Piperacil/Tazobactam 3.375 GM in 0.9% Normal Saline (50mL MB+) 50 ML IV ×3 (05:15→21:59)
[2023-08-30] MEDS: Methylprednisolone Sod Succ 40 MG/ML VIAL IV (05:15)
[2023-08-30] MEDS: busPIRone 15 MG TABLET 7.5 MG PO ×3 (05:15→22:01)
[2023-08-30] MEDS: hydrOXYzine 10 MG Tablet PO ×3 (05:15→22:01)
[2023-08-30] MEDS: Insulin Lispro 100 UNIT/ML INSULN.PEN SC ×4 (06:42→21:57)
[2023-08-30] MEDS: Ipratropium/Albuterol Sulfate 3 ML AMPUL.NEB INHALATION ×3 (06:45→19:43)
[2023-08-30 06:56] LABS: Bedside Glucose 280 mg/dL (74-106)
[2023-08-30 07:51] LABS: Anion Gap 3 (5-15); BUN 28 mg/dL (7-18); BUN/Creat Ratio 25.5 RATIO (10-20); Calcium,Total 8.7 mg/dL (8.5-10.1); Chloride 110 mmol/L (98-107); EST Glomerular Filtration Rate 72 mL/min (>60); Est Glom Filt Rate - Afr Amer 87 mL/min (>60); Estimated Creatinine Clearance 70.05 ml/min; Glucose 304 mg/dL (74-106); Potassium 4.4 mmol/L (3.5-5.1); Sodium Level 138 mmol/L (136-145)
[2023-08-30 07:53] LABS: Absolute Lymphocyte Count 0.86 X10^3/uL (0.83-4.51); Absolute Neutrophil Count 18.6 X10^3/uL (2.0-7.7); Basophil# 0.03 X10^3/uL; Basophil% 0.1 % (0-1); Hematocrit 35.8 % (40-54); Hemoglobin 11.1 g/dL (13.0-16.5); Lymphocyte # 0.86 X10^3/ul (0.83-4.51); Lymphocyte % 4.2 % (19-41); Mean Corpuscular Hgb 27.2 pg (27.0-32.0); Mean Corpuscular Volume 87.7 fL (80-94); Mean Platelet Vol. 11.4 fl (6.2-12.0); Monocyte# 0.55 X10^3/uL; Monocyte% 2.7 % (0-10); NRBC Flagged by Analyzer 0 % (0-5); Neutrophil # 18.61 X10^3/uL (2.7-7.7); Platelet Count 197 K/mm3 (150-450); RBC Distribution Width CV 14.3 % (11.6-14.6); RBC Distribution Width SD 46.1 fl (35.1-43.9); Red Blood Count 4.08 M/mm3 (4.6-6.2); White Blood Count 20.3 K/mm3 (4.4-11.0)
--- NOTE | 2023-08-30 09:58 | PN.CC_ITS ---
Assessment & Plan Assessment/Plan (1) Acute exacerbation of chronic obstructive pulmonary disease: (2) Respiratory failure with hypoxia: PLAN: Plan RECOMMENDATIONS: 1. Continue BiPAP with sleep and rescue 2. Agree with empiric antibiotics, bronchodilators and steroids 3. Send viral panel 4. Titrate insulin as necessary 5. Aggressive control of blood pressure 6. Likely okay to leave the intensive care unit IMPRESSIONS: 1. Acute on chronic combined respiratory failure Patient's ABG on presentation does show acidosis and increased AA gradient. X-ray does show a possible infiltrate in the left lower lobe. Pat mona is in the hospital frequently, so broad-spectrum antibiotics would be indicated pending culture. We will obtain a viral panel as patient has had significant fever overnight. That being said, patient's respiratory status appears to be much improved today. Patient may have an element of flash pulmonary edema given significantly elevated blood pressures on presentation. Patient does have marginal baseline respiratory function and may be having some issues dealing with metabolic demand of fever 2. Metabolic encephalopathy Patient with significant confusion on presentation. This may be secondary to CO2 retention versus hypoglycemia versus secondary process. This appears to be much improved today compared to previous documentation. Continue to monitor clinically 3. Insulin-dependent diabetes mellitus/hypertension/CAD/PVD Complicates care, management, recovery and prognosis. Patient with some hypoglycemia at presentation, but this may be secondary to decreased p.o. intake given problem #1. Blood pressure has been poorly controlled overnight. Okay to continue baseline medication. Subjective Subjective The patient was seen and examined at the bedside this morning. Events from the last 24 hours have been reviewed. The patient is currently afebrile, hemodynamically stable and maintaining appropriate oxygen saturations on Objective Data Objective Data The patient's most recent lab work, culture data and imaging studies have all been personally reviewed. Infectious work-up has been unrevealing to date. Vital Signs: Vital Signs Temp Pulse Resp BP Pulse Ox O2 Del Method O2 Flow Rate 97.5 F L 54 L 18 179/102 H 95 Bi-pap 2 08/30/23 03:00 08/30/23 06:45 08/30/23 06:45 08/30/23 03:00 08/30/23 06:45 08/30/23 06:45 08/29/23 21:00 FiO2 25 08/30/23 06:45 Oxygen Flow Rate (L/min) 2 Oxygen Delivery Method Bi-pap Weight: 283 lb 1.176 oz Body Mass Index (BMI) 40.6 Intake & Output: Intake and Output for Last 24 Hours 08/28/23 08/29/23 08/30/23 23:59 23:59 23:59 Intake Total 1290 / 1290 1810 / 1810 100 / 100 Output Total 800 / 800 500 / 500 125 / 125 Balance 490 / 490 1310 / 1310 -25 / -25 Lab / Micro Data Attestation: I reviewed the patient's lab results. 08/30/23 07:35 08/30/23 06:31 Labs: Laboratory Results - last 24 hr 08/29/23 11:59: POC Glucose 234 H 08/29/23 16:06: POC Glucose 266 H 08/29/23 21:00: POC Glucose 271 H 08/30/23 01:05: Vancomycin Trough 24.7 H 08/30/23 06:31: Sodium 138, Potassium 4.4, Chloride 110 H, Carbon Dioxide 25.0, Anion Gap 3 L, BUN 28 H, Creatinine 1.10, Estim Creat Clear Calc 70.05, Est GFR (MDRD) Af Amer 87, Est GFR (MDRD) Non-Af 72, BUN/Creatinine Ratio 25.5 H, Glucose 304 H, Calcium 8.7 08/30/23 06:38: POC Glucose 280 H 08/30/23 07:35: WBC 20.3 H, RBC 4.08 L, Hgb 11.1 L, Hct 35.8 L, MCV 87.7, MCH 27.2, MCHC 31.0 L, RDW Std Deviation 46.1 H, RDW Coeff of James 14.3, Plt Count 197, MPV 11.4, Immature Gran % (Auto) 1.000 H, Neut % (Auto) 92.0 H, Lymph % (Auto) 4.2 L, [place] % (Auto) 2.7, Eos % (Auto) 0.0, Baso % (Auto) 0.1, Absolute Neuts (auto) 18.6 H, Absolute Lymphs (auto) 0.86, Nucleated RBC % 0 Micro: Microbiology 08/29/23 13:40 Mucosa - Nasopharyngeal Respiratory Panel (PCR) - Final 08/28/23 18:55 Urine, Random Legionella Antigen - Final 08/28/23 18:55 Urine, Random Streptococcus pneumoniae Antigen (M - Final 08/28/23 08:08 Nasal Secretion SARS-CoV-2 & FLU Antigen (Rapid) - Final
--- NOTE | 2023-08-30 09:58 | PCM.PN.INT ---
Assessment & Plan Assessment/Plan (1) Acute exacerbation of chronic obstructive pulmonary disease: (2) Respiratory failure with hypoxia: PLAN: Plan RECOMMENDATIONS: 1. Wean supplemental oxygen to maintain saturations at or above 90%. 2. Continue Zosyn. Okay to discontinue vancomycin from my perspective. 3. Continue bronchodilators. 4. Okay to discontinue steroids. 5. Continue aspiration precautions with modified diet per speech therapy recommendations. 6. BiPAP therapy with sleep. 7. Encourage incentive spirometer use and mobilize patient as tolerated. 8. Follow-up in the pulmonary medicine clinic as scheduled on October 13. IMPRESSIONS: 1. Acute on chronic combined respiratory failure Likely secondary to recurrent aspiration event. The patient appears to be improving from a respiratory perspective. Plan to continue Zosyn. Vancomycin can be discontinued at this time. Once ready for discharge, the patient can be transition to Augmentin to complete a treatment course. Continue bronchodilators as ordered. Okay to discontinue steroids from my perspective. Continue to encourage incentive spirometer use and mobilize patient as tolerated. Continue aspiration precautions and modified diet per speech therapy recommendations. 2. Insulin-dependent diabetes mellitus/hypertension/CAD/PVD Complicates care, management, recovery and prognosis. Continue home medications as indicated. This note was generated with [employer] dictation software. It may contain incorrect words, spelling, and punctuation that were not noted in checking the note before signing. Subjective Subjective The patient was seen and examined at the bedside this morning. Events from the last 24 hours have been reviewed. The patient is currently afebrile, hemodynamically stable and maintaining appropriate oxygen saturations on 2 L/min via nasal cannula. The patient remains on a modified diet per speech therapy to prevent future aspiration events. Objective Data Objective Data The patient's most recent lab work, culture data and imaging studies have all been personally reviewed. Infectious work-up has been unrevealing to date. Vital Signs: Vital Signs Temp Pulse Resp BP Pulse Ox O2 Del Method O2 Flow Rate 97.5 F L 54 L 18 179/102 H 95 Bi-pap 2 08/30/23 03:00 08/30/23 06:45 08/30/23 06:45 08/30/23 03:00 08/30/23 06:45 08/30/23 06:45 08/29/23 21:00 FiO2 25 10/02/23 06:45 Oxygen Flow Rate (L/min) 2 Oxygen Delivery Method Bi-pap Weight: 283 lb 1.176 oz Body Mass Index (BMI) 40.6 Intake & Output: Intake and Output for Last 24 Hours 08/28/23 08/29/23 08/30/23 23:59 23:59 23:59 Intake Total 1290 / 1290 1810 / 1810 100 / 100 Output Total 800 / 800 500 / 500 125 / 125 Balance 490 / 490 1310 / 1310 -25 / -25 Lab / Micro Data Attestation: I reviewed the patient's lab results. 08/30/23 07:35 08/30/23 06:31 Labs: Laboratory Results - last 24 hr 08/29/23 11:59: POC Glucose 234 H 08/29/23 16:06: POC Glucose 266 H 08/29/23 21:00: POC Glucose 271 H 08/30/23 01:05: Vancomycin Trough 24.7 H 08/30/23 06:31: Sodium 138, Potassium 4.4, Chloride 110 H, Carbon Dioxide 25.0, Anion Gap 3 L, BUN 28 H, Creatinine 1.10, Estim Creat Clear Calc 70.05, Est GFR (MDRD) Af Amer 87, Est GFR (MDRD) Non-Af 72, BUN/Creatinine Ratio 25.5 H, Glucose 304 H, Calcium 8.7 08/30/23 06:38: POC Glucose 280 H 08/30/23 07:35: WBC 20.3 H, RBC 4.08 L, Hgb 11.1 L, Hct 35.8 L, MCV 87.7, MCH 27.2, MCHC 31.0 L, RDW Std Deviation 46.1 H, RDW Coeff of James 14.3, Plt Count 197, MPV 11.4, Immature Gran % (Auto) 1.000 H, Neut % (Auto) 92.0 H, Lymph % (Auto) 4.2 L, [place] % (Auto) 2.7, Eos % (Auto) 0.0, Baso % (Auto) 0.1, Absolute Neuts (auto) 18.6 H, Absolute Lymphs (auto) 0.86, Nucleated RBC % 0 Micro: Microbiology 08/29/23 13:40 Mucosa - Nasopharyngeal Respiratory Panel (PCR) - Final 08/28/23 18:55 Urine, Random Legionella Antigen - Final 08/28/23 18:55 Urine, Random Streptococcus pneumoniae Antigen (M - Final 08/28/23 08:08 Nasal Secretion SARS-CoV-2 & FLU Antigen (Rapid) - Final Physical Exam Const alert and no apparent distress General Appearance: cooperative HEENT normocephalic and head/scalp atraumatic Eyes PERRL, EOMs intact bilaterally and conjunctivae normal Neck supple General: trachea midline Chest inspection of chest normal Resp normal respiratory effort Auscultation: rales; Negative for rhonchi or wheezes Cardio regular rate and regular rhythm GI normal to inspection, nondistended, normoactive bowel sounds Extremity no clubbing, cyanosis or edema Skin no rashes or lesions noted Neuro oriented x3, CN's II-XII intact bilaterally and moves all extremities Psych cooperative and affect normal Charges/Coding Visit Charges Inpatient E&M: 66585 Subs Hosp L2
--- NOTE | 2023-08-30 10:22 | CASEMGMT ---
Discharge Planning Updates sent to [facility] via [facility]. Nuria Singh, Discharge Planning Asst.
[2023-08-30] MEDS: Losartan Potassium 50 MG Tablet PO (10:30)
[2023-08-30] MEDS: Pregabalin 75 MG Capsule PO ×2 (10:30→22:01)
[2023-08-30] MEDS: Aspirin E.C. 81 MG Tablet PO (10:30)
[2023-08-30] MEDS: Clopidogrel Bisulfate 75 MG Tablet PO (10:30)
[2023-08-30] MEDS: FLUoxetine 20 MG Capsule PO (10:31)
[2023-08-30] MEDS: Enoxaparin 40 MG/0.4 ML Syringe SC ×2 (10:31→21:59)
[2023-08-30] MEDS: Pantoprazole Sodium 40 MG Tablet PO (10:31)
[2023-08-30] MEDS: Multivitamins,Ther W-Minerals Tablet 1 TABLET PO (10:31)
[2023-08-30] MEDS: amLODIPine 2.5 MG Tablet 5 MG PO (10:31)
--- NOTE | 2023-08-30 10:57 | CASEMGMT ---
Patient came from [place]. RICO met with patient. Introduced self and role at [facility]. Patient said he would like to go back to [place] and then be discharged home from there on Wednesday of next week. RICO told patient SW will work on updating [facility]. RICO asked Nuria d/c wedding planning internship to send updates to [facility] and to start per-cert. [employer]
--- NOTE | 2023-08-30 10:59 | CASEMGMT ---
Discharge Planning Patient will return to [place]. Precert started. SW updated. uNria Singh, Discharge Planning Asst.
[2023-08-30] MEDS: Isosorbide DN 30 MG Tablet PO (11:24)
[2023-08-30] MEDS: Carvedilol 12.5 MG Tablet 25 MG PO ×2 (11:25→17:42)
[2023-08-30] MEDS: Finasteride 5 MG Tablet PO (11:26)
[2023-08-30 11:56] LABS: Bedside Glucose 354 mg/dL (74-106)
--- NOTE | 2023-08-30 12:27 | CASEMGMT ---
Addendum entered by Lorenza Chamberlain 08/30/23 12:30: Addendum Patient's Medical Power of German Instructor documents scanned into [employer] CAILIN Rainey, MINISTERIO Original Note: Social Work Patient has health care power of insurance attorney identified as significant other She Gipson. CAILIN Rainey, STOCK REPLENISHER
--- NOTE | 2023-08-30 13:50 | PN_ITS ---
Subjective Subjective Patient seen and examined. He is unhappy he is still in the hospital. Review of systems is otherwise negative. He has remained hemodynamically stable. He is on 2L of oxygen by nasal canula. Objective Data Objective Data Vital Signs: Vital Signs Temp Pulse Resp BP Pulse Ox O2 Del Method O2 Flow Rate 97.7 F L 77 25 H 180/86 H 95 Nasal Cannula 2 08/30/23 09:00 08/30/23 10:55 08/30/23 10:55 08/30/23 09:00 08/30/23 10:55 08/30/23 11:00 08/30/23 11:00 FiO2 25 08/30/23 06:45 Oxygen Flow Rate (L/min) 2 Oxygen Delivery Method Nasal Cannula Weight: 283 lb 1.176 oz Body Mass Index (BMI) 40.6 Intake & Output: Intake and Output for Last 24 Hours 08/28/23 08/29/23 08/30/23 23:59 23:59 23:59 Intake Total 1290 / 1290 1810 / 1810 150 / 150 Output Total 800 / 800 500 / 500 125 / 125 Balance 490 / 490 1310 / 1310 25 Lab / Micro Data 08/30/23 07:35 08/30/23 06:31 Labs: Laboratory Results - last 24 hr 08/29/23 16:06: POC Glucose 266 H 08/29/23 21:00: POC Glucose 271 H 08/30/23 01:05: Vancomycin Trough 24.7 H 08/30/23 06:31: Sodium 138, Potassium 4.4, Chloride 110 H, Carbon Dioxide 25.0, Anion Gap 3 L, BUN 28 H, Creatinine 1.10, Estim Creat Clear Calc 70.05, Est GFR (MDRD) Af Amer 87, Est GFR (MDRD) Non-Af 72, BUN/Creatinine Ratio 25.5 H, Glucose 304 H, Calcium 8.7 08/30/23 06:38: POC Glucose 280 H 08/30/23 07:35: WBC 20.3 H, RBC 4.08 L, Hgb 11.1 L, Hct 35.8 L, MCV 87.7, MCH 27.2, MCHC 31.0 L, RDW Std Deviation 46.1 H, RDW Coeff of James 14.3, Plt Count 197, MPV 11.4, Immature Gran % (Auto) 1.000 H, Neut % (Auto) 92.0 H, Lymph % (Auto) 4.2 L, [place] % (Auto) 2.7, Eos % (Auto) 0.0, Baso % (Auto) 0.1, Absolute Neuts (auto) 18.6 H, Absolute Lymphs (auto) 0.86, Nucleated RBC % 0 08/30/23 11:21: POC Glucose 354 H Micro: Microbiology 08/28/23 08:09 Blood Culture (Wb) #2 - Anticubital Right Blood Culture - Preliminary No growth in 48 hours. 08/28/23 07:50 Blood Culture (Wb) - Anticubital Right Blood Culture - Preliminary No growth in 48 hours. 08/29/23 13:40 Mucosa - Nasopharyngeal Respiratory Panel (PCR) - Final 08/28/23 18:55 Urine, Random Legionella Antigen - Final 08/28/23 18:55 Urine, Random Streptococcus pneumoniae Antigen (M - Final 08/28/23 08:08 Nasal Secretion SARS-CoV-2 & FLU Antigen (Rapid) - Final Physical Exam Const alert, oriented x3 and no apparent distress General Appearance: cooperative HEENT normocephalic, moist oral mucous membranes and oropharynx normal Eyes PERRL and EOMs intact bilaterally Neck no lymphadenopathy, supple and no JVD Lymph Lymphatic: no lymphadenopathy noted and no lymphedema noted Resp Resp Narrative: diminished breath sounds bibasally, no wheezes or crackles. on 2L of oxygen by nasal canula Cardio regular rate, regular rhythm, S1 normal heart sound, S2 normal heart sound and no murmurs GI normal to inspection, nondistended, normoactive bowel sounds, soft to palpation, non-tender and non-distended Extremity normal capillary refill, no clubbing, cyanosis or edema and no calf tenderness General Extremity: no tenderness to palpation of joints or extremities Skin General Skin Exam: no breakdown Neuro CN's II-XII intact bilaterally, no focal motor deficits, no sensory deficits noted and deep tendon reflexes 2+ bilaterally Motor Exam: strength 5/5 throughout and general weakness Psych thought process normal and cooperative Appearance: appropriate Assessment & Plan Assessment/Plan (1) Acute exacerbation of chronic obstructive pulmonary disease: (2) Respiratory failure with hypoxia: (3) Acute and chronic respiratory failure, unspecified whether with hypoxia or hypercapnia: QUALIFIERS: Respiratory failure complication: hypoxia and h ypercapnia Qualified Code(s): J96.21 - Acute and chronic respiratory failure with hypoxia; J96.22 - Acute and chronic respiratory failure with hypercapnia (4) Acute respiratory acidosis: PLAN: Plan #Acute on chronic respiratory failure * due to COPD and pneumonia. * on IV vancomycin and zosyn * COVID 19 negative. * urine for Strep and Legionella are negative. Sputum culture negative. * #Acute encephalopathy * resolved. * buspirone, fluoxetine, pregabalin and trazodone held. * * #HYpoglycemia: resolved. #Type 2 diabetes mellitus * lantus held on admission due to hypoglycemia * ISS. Accuchecks ACHS * #Hypertension; on losartan and amlodipine. #CAD: s/p PCI. On aspirin, plavix and high intensity statin. #PAD: s/p arthrectomy. On aspirin and plavix. #GERD: on PPI DVT prophylaxis: on heparin Charges/Coding Visit Charges Inpatient E&M: 32603 Subs Hosp L2
--- NOTE | 2023-08-30 14:26 | CASEMGMT ---
RICO was informed patient wanted to talk with SW. SW met with patient and his significant other. Patient told SW he was upset about all of the telemarketing calls he is getting while in the hospital. SW provided emotional support. SW let patient know he can unplug the phone, but he would have to have it re-connected to order his meals. Patient also asked what is going on with [facility]. SW told patient we are just waiting on insurance to approve him to return. Loan CARR
--- NOTE | 2023-08-30 14:31 | CHAPLAIN ---
Type of Pastoral Visit _x__ Initial Visit ___ Follow-up Visit ___ On-call Visit ___ General Patient Visit ___ Spiritual Assessment ___ Family Conference ___ Bereavement ___ Rapid Response ___ Code Blue ___ Other (describe below) Pastoral Care Referral From _x__ Patient ___ Family ___ Nurse ___ Physician ___ Ob/Gyn ___ Framing Mill Operator ___ Other (describe below) Sacrament/Intervention _x__ Active listening ___ Anointing ___ Adventist ___ Bereavement ___ Communion ___ Sarai exploration ___ ___ Life review _x__ Prayer ___ Reconciliation ___ Sacrament of Sick _x__ Supportive presence ___ Wedding ___ Other (describe below) Pastoral Comments patient has been seen numerous times in previous admissions; pt states that he aspirated again; pt states he knows he has to go back to SNF but then I'm going home; pt has two phone calls from [employer] while this dividend deposit voucher clerk is in the room; pt is very agitated at this annoying calls; pt calls aide for water and is short in temper; this dividend deposit voucher clerk gets him water, listens to his concerns, offers prayer and sees pt become somewhat calmer; PT and OT come to work with patient at this time
[2023-08-30] MEDS: Fluoxetine HCl 40 MG CAPSULE PO (15:27)
[2023-08-30 17:58] LABS: Bedside Glucose 371 mg/dL (74-106)
[2023-08-30] MEDS: MELATONIN 3 MG TABLET PO (22:01)
[2023-08-30] MEDS: Atorvastatin Calcium 80 MG Tablet PO (22:01)
[2023-08-30] MEDS: traZODone 50 MG Tablet 150 MG PO (22:01)
[2023-08-30] MEDS: hydrALAZINE 20 MG/ML Vial 10 MG IV (22:18)
[2023-08-30] MEDS: 0.9% Saline Lock 10 ML Syringe IV (22:19)
[2023-08-30 22:32] LABS: Bedside Glucose 331 mg/dL (74-106)
[2023-08-31] VITALS (16 sets, daily range): BP systolic 142–171; BP diastolic 86–104; PULSE 50–82; RESP 14–18; TEMP 36–36.8; O2SAT 90–97; BMI 40.3
[2023-08-31] MEDS: busPIRone 15 MG TABLET 7.5 MG PO ×3 (05:00→21:34)
[2023-08-31] MEDS: Piperacil/Tazobactam 3.375 GM in 0.9% Normal Saline (50mL MB+) 50 ML IV (05:00)
[2023-08-31] MEDS: hydrOXYzine 10 MG Tablet PO ×3 (05:00→21:34)
[2023-08-31 05:53] LABS: Absolute Lymphocyte Count 1.66 X10^3/uL (0.83-4.51); Absolute Neutrophil Count 13.3 X10^3/uL (2.0-7.7); Basophil# 0.01 X10^3/uL; Basophil% 0.1 % (0-1); Hematocrit 33.7 % (40-54); Hemoglobin 10.8 g/dL (13.0-16.5); Lymphocyte # 1.66 X10^3/ul (0.83-4.51); Lymphocyte % 10.5 % (19-41); Mean Corpuscular Hgb 27.8 pg (27.0-32.0); Mean Corpuscular Volume 86.6 fL (80-94); Mean Platelet Vol. 11.8 fl (6.2-12.0); Monocyte# 0.82 X10^3/uL; Monocyte% 5.2 % (0-10); NRBC Flagged by Analyzer 0 % (0-5); Neutrophil # 13.27 X10^3/uL (2.7-7.7); Neutrophil % 83.7 % (47-70); Platelet Count 172 K/mm3 (150-450); RBC Distribution Width CV 14.2 % (11.6-14.6); RBC Distribution Width SD 45.2 fl (35.1-43.9); Red Blood Count 3.89 M/mm3 (4.6-6.2); White Blood Count 15.8 K/mm3 (4.4-11.0)
[2023-08-31 06:39] LABS: Anion Gap 2 (5-15); BUN 24 mg/dL (7-18); BUN/Creat Ratio 23.5 RATIO (10-20); Calcium,Total 8.6 mg/dL (8.5-10.1); Chloride 106 mmol/L (98-107); Creatinine, Serum 1.02 mg/dL (0.70-1.30); EST Glomerular Filtration Rate 78 mL/min (>60); Est Glom Filt Rate - Afr Amer 94 mL/min (>60); Estimated Creatinine Clearance 75.54 ml/min; Glucose 271 mg/dL (74-106); Potassium 3.9 mmol/L (3.5-5.1); Sodium Level 139 mmol/L (136-145)
[2023-08-31] MEDS: Insulin Lispro 100 UNIT/ML INSULN.PEN SC ×4 (06:42→22:52)
[2023-08-31 07:02] LABS: Bedside Glucose 249 mg/dL (74-106)
[2023-08-31] MEDS: Ipratropium/Albuterol Sulfate 3 ML AMPUL.NEB INHALATION ×3 (07:26→19:13)
--- NOTE | 2023-08-31 09:25 | PN.CC_ITS ---
Assessment & Plan Assessment/Plan (1) Acute exacerbation of chronic obstructive pulmonary disease: (2) Respiratory failure with hypoxia: PLAN: Plan RECOMMENDATIONS: 1. Wean supplemental oxygen to maintain saturations at or above 90%. 2. Continue Zosyn. Transition to Augmentin at the time of discharge. 3. Continue bronchodilators. 4. Continue aspiration precautions with modified diet per speech therapy recommendations. 5. BiPAP therapy with sleep. 6. Encourage incentive spirometer use and mobilize patient as tolerated. 7. Follow-up in the pulmonary medicine clinic as scheduled on October 13. IMPRESSIONS: 1. Acute on chronic combined respiratory failure Likely secondary to recurrent aspiration event. The patient appears to be improving from a respiratory perspective. Plan to continue Zosyn. Once ready for discharge, the patient can be transitioned to Augmentin to complete a treatment course. Continue bronchodilators as ordered. Continue to encourage incentive spirometer use and mobilize patient as tolerated. Continue aspiration precautions and modified diet per speech therapy recommendations. 2. Insulin-dependent diabetes mellitus/hypertension/CAD/PVD Complicates care, management, recovery and prognosis. Continue home medications as indicated. This note was generated with [employer] dictation software. It may contain incorrect words, spelling, and punctuation that were not noted in checking the note before signing. Subjective Subjective The patient was seen and examined at the bedside this morning. Events from the last 24 hours have been reviewed. The patient is currently afebrile, hemodyn amically stable and maintaining appropriate oxygen saturations on 2 L/min via nasal cannula. The patient is sitting in the bedside recliner without any specific complaints this morning. Objective Data Objective Data The patient's most recent lab work, culture data and imaging studies have all been personally reviewed. Infectious work-up has been unrevealing to date. Vital Signs: Vital Signs Temp Pulse Resp BP Pulse Ox O2 Del Method O2 Flow Rate 98 F 80 14 142/104 H 97 Nasal Cannula 2 08/31/23 08:12 08/31/23 08:12 08/31/23 08:12 08/31/23 08:12 08/31/23 08:12 08/31/23 08:12 08/31/23 08:12 FiO2 25 08/31/23 05:16 Oxygen Flow Rate (L/min) 2 Oxygen Delivery Method Nasal Cannula Weight: 281 lb 1.43 oz Body Mass Index (BMI) 40.3 Intake & Output: Intake and Output for Last 24 Hours 08/29/23 08/30/23 08/31/23 23:59 23:59 23:59 Intake Total 1810 / 1810 540 / 660 270 / 270 Output Total 500 / 500 875 / 1475 800 / 800 Balance 1310 / 1310 -335 / -815 -530 / -530 Lab / Micro Data Attestation: I reviewed the patient's lab results. 08/31/23 04:57 08/31/23 04:57 Labs: Laboratory Results - last 24 hr 08/30/23 11:21: POC Glucose 354 H 08/30/23 17:39: POC Glucose 371 H 08/30/23 21:56: POC Glucose 331 H 08/31/23 04:57: WBC 15.8 H, RBC 3.89 L, Hgb 10.8 L, Hct 33.7 L, MCV 86.6, MCH 27.8, MCHC 32.0, RDW Std Deviation 45.2 H, RDW Coeff of James 14.2, Plt Count 172, MPV 11.8, Immature Gran % (Auto) 0.500, Neut % (Auto) 83.7 H, Lymph % (Auto) 10.5 L, [place] % (Auto) 5.2, Eos % (Auto) 0.0, Baso % (Auto) 0.1, Absolute Neuts (auto) 13.3 H, Absolute Lymphs (auto) 1.66, Nucleated RBC % 0, Sodium 139, Potassium 3.9, Chloride 106, Carbon Dioxide 31.0, Anion Gap 2 L, BUN 24 H, Creatinine 1.02, Estim Creat Clear Calc 75.54, Est GFR (MDRD) Af Amer 94, Est GFR (MDRD) Non-Af 78, BUN/Creatinine Ratio 23.5 H, Glucose 271 H, Calcium 8.6 08/31/23 06:42: POC Glucose 249 H Micro: Microbiology 08/28/23 08:09 Blood Culture (Wb) #2 - Anticubital Right Blood Culture - Preliminary No growth in 48 hours. 08/28/23 07:50 Blood Culture (Wb) - Anticubital Right Blood Culture - Preliminary No growth in 48 hours. 08/29/23 13:40 Mucosa - Nasopharyngeal Respiratory Panel (PCR) - Final 08/28/23 18:55 Urine, Random Legionella Antigen - Final 08/28/23 18:55 Urine, Random Streptococcus pneumoniae Antigen (M - Final 08/28/23 08:08 Nasal Secretion SARS-CoV-2 & FLU Antigen (Rapid) - Final Physical Exam Const alert and no apparent distress Constitutional Narrative: Sitting in bedside recliner. General Appearance: cooperative HEENT normocephalic and head/scalp atraumatic Eyes PERRL, EOMs intact bilaterally and conjunctivae normal Neck supple General: trachea midline Chest inspection of chest normal Resp normal respiratory effort Auscultation: Negative for rales, rhonchi or wheezes Cardio regular rate and regular rhythm GI normal to inspection, nondistended, normoactive bowel sounds Extremity no clubbing, cyanosis or edema Skin no rashes or lesions noted Neuro oriented x3, CN's II-XII intact bilaterally and moves all extremities Psych cooperative and affect normal Charges/Coding Visit Charges Inpatient E&M: 76655 Subs Hosp L2
[2023-08-31] MEDS: Carvedilol 12.5 MG Tablet 25 MG PO ×2 (09:33→16:11)
[2023-08-31] MEDS: Finasteride 5 MG Tablet PO (09:34)
[2023-08-31] MEDS: Isosorbide DN 30 MG Tablet PO (09:34)
[2023-08-31] MEDS: Clopidogrel Bisulfate 75 MG Tablet PO (09:34)
[2023-08-31] MEDS: Enoxaparin 40 MG/0.4 ML Syringe SC ×2 (09:39→21:42)
[2023-08-31] MEDS: Losartan Potassium 50 MG Tablet PO (09:39)
[2023-08-31] MEDS: Fluoxetine HCl 40 MG CAPSULE PO (09:39)
[2023-08-31] MEDS: Aspirin E.C. 81 MG Tablet PO (09:40)
[2023-08-31] MEDS: amLODIPine 2.5 MG Tablet 5 MG PO (09:40)
[2023-08-31] MEDS: Pantoprazole Sodium 40 MG Tablet PO (09:46)
[2023-08-31] MEDS: Pregabalin 75 MG Capsule PO ×2 (09:46→21:49)
[2023-08-31] MEDS: FLUoxetine 20 MG Capsule PO (09:46)
[2023-08-31 10:00] LABS: Bedside Glucose 273 mg/dL (74-106)
--- NOTE | 2023-08-31 11:19 | PN_ITS ---
Subjective Subjective Patient seen and examined. HE has no complaints and feels well. He had an uneventful night. Review of systems is otherwise negative. He is on 2L of oxygen. Objective Data Objective Data Vital Signs: Vital Signs Temp Pulse Resp BP Pulse Ox O2 Del Method O2 Flow Rate 98 F 80 14 142/104 H 90 Nasal Cannula 2 08/31/23 08:12 08/31/23 08:12 08/31/23 08:12 08/31/23 08:12 08/31/23 09:22 08/31/23 08:12 08/31/23 09:22 FiO2 25 08/31/23 05:16 Oxygen Flow Rate (L/min) 2 Oxygen Delivery Method Nasal Cannula Weight: 281 lb 1.43 oz Body Mass Index (BMI) 40.3 Intake & Output: Intake and Output for Last 24 Hours 08/29/23 08/30/23 08/31/23 23:59 23:59 23:59 Intake Total 1810 / 1810 540 / 660 320 / 320 Output Total 500 / 500 875 / 1475 800 / 800 Balance 1310 / 1310 -335 / -815 -480 / -480 Lab / Micro Data 08/31/23 04:57 08/31/23 04:57 Labs: Laboratory Results - last 24 hr 08/30/23 11:21: POC Glucose 354 H 08/30/23 17:39: POC Glucose 371 H 08/30/23 21:56: POC Glucose 331 H 08/31/23 04:57: WBC 15.8 H, RBC 3.89 L, Hgb 10.8 L, Hct 33.7 L, MCV 86.6, MCH 27.8, MCHC 32.0, RDW Std Deviation 45.2 H, RDW Coeff of James 14.2, Plt Count 172, MPV 11.8, Immature Gran % (Auto) 0.500, Neut % (Auto) 83.7 H, Lymph % (Auto) 1 0.5 L, [place] % (Auto) 5.2, Eos % (Auto) 0.0, Baso % (Auto) 0.1, Absolute Neuts (auto) 13.3 H, Absolute Lymphs (auto) 1.66, Nucleated RBC % 0, Sodium 139, Potassium 3.9, Chloride 106, Carbon Dioxide 31.0, Anion Gap 2 L, BUN 24 H, Creatinine 1.02, Estim Creat Clear Calc 75.54, Est GFR (MDRD) Af Amer 94, Est GFR (MDRD) Non-Af 78, BUN/Creatinine Ratio 23.5 H, Glucose 271 H, Calcium 8.6 08/31/23 06:42: POC Glucose 249 H 08/31/23 09:27: POC Glucose 273 H Micro: Microbiology 08/28/23 08:09 Blood Culture (Wb) #2 - Anticubital Right Blood Culture - Preliminary No growth in 48 hours. 08/28/23 07:50 Blood Culture (Wb) - Anticubital Right Blood Culture - Preliminary No growth in 48 hours. 08/29/23 13:40 Mucosa - Nasopharyngeal Respiratory Panel (PCR) - Final 08/28/23 18:55 Urine, Random Legionella Antigen - Final 08/28/23 18:55 Urine, Random Streptococcus pneumoniae Antigen (M - Final 08/28/23 08:08 Nasal Secretion SARS-CoV-2 & FLU Antigen (Rapid) - Final Physical Exam Const alert, oriented x3 and no apparent distress Constitutional Narrative: anxious. General Appearance: cooperative HEENT normocephalic, head/scalp atraumatic, moist oral mucous membranes and oropharynx normal Eyes PERRL and EOMs intact bilaterally Neck no lymphadenopathy, supple and no JVD Lymph Lymphatic: no lymphadenopathy noted and no lymphedema noted Resp normal respiratory effort, no retractions, no use of accessory muscles and clear to auscultation bilaterally Resp Narrative: diminished breath sounds bibasally, no wheezes or crackles. on 2L of oxygen by nasal canula Cardio regular rate, regular rhythm, S1 normal heart sound, S2 normal heart sound and no murmurs GI normal to inspection, nondistended, normoactive bowel sounds, soft to palpation, non-tender and non-distended Extremity normal to inspection, normal capillary refill, no clubbing, cyanosis or edema and no calf tenderness General Extremity: no tenderness to palpation of joints or extremities Skin General Skin Exam: no breakdown Neuro oriented x3, CN's II-XII intact bilaterally, no focal motor deficits, no sensory deficits noted and deep tendon reflexes 2+ bilaterally Sensorium / Orientation: awake and alert Motor Exam: strength 5/5 throughout and general weakness Psych thought process normal, cooperative and affect normal Appearance: appropriate Assessment & Plan Assessment/Plan (1) Acute exacerbation of chronic obstructive pulmonary disease: (2) Respiratory failure with hypoxia: (3) Acute and chronic respiratory failure, unspecified whether with hypoxia or hypercapnia: QUALIFIERS: Respiratory failure complication: hypoxia and hypercapnia Qualified Code(s): J96.21 - Acute and chronic respiratory failure with hypoxia; J96.22 - Acute and chronic respiratory failure with hypercapnia (4) Acute respiratory acidosis: PLAN: Plan #Acute on chronic respiratory failure * due to COPD and pneumonia. * on IV vancomycin and zosyn * COVID 19 negative. * urine for Strep and Legionella are negative. Sputum culture negative. * will dc antibiotics after today's dose as blood cultures also negative, in addition to respiratory panel and strep and legionella also being negative. * wbc treding down and is 15.8 today * #Acute encephalopathy * resolved. * buspirone, fluoxetine, pregabalin and trazodone held. * * #HYpoglycemia: resolved. #Type 2 diabetes mellitus * lantus held on admission due to hypoglycemia * ISS. Accuchecks ACHS * #Hypertension; on losartan and amlodipine. #CAD: s/p PCI. On aspirin, plavix and high intensity statin. #PAD: s/p arthrectomy. On aspirin and plavix. #GERD: on PPI DVT prophylaxis: on heparin Disposition; awaiting placement. Charges/Coding Visit Charges Inpatient E&M: 93288 Subs Hosp L2
[2023-08-31] MEDS: Multivitamins,Ther W-Minerals Tablet 1 TABLET PO (13:20)
[2023-08-31 16:40] LABS: Bedside Glucose 340 mg/dL (74-106)
[2023-08-31] MEDS: traZODone 50 MG Tablet 150 MG PO (21:35)
[2023-08-31] MEDS: Atorvastatin Calcium 80 MG Tablet PO (21:35)
[2023-08-31] MEDS: hydrALAZINE 20 MG/ML Vial 10 MG IV (21:39)
[2023-08-31] MEDS: MELATONIN 3 MG TABLET PO (21:41)
[2023-08-31 23:24] LABS: Bedside Glucose 315 mg/dL (74-106)
[2023-09-01] VITALS (8 sets, daily range): BP systolic 142–162; BP diastolic 66–115; PULSE 68–95; RESP 14–21; TEMP 36.5–36.6; O2SAT 94–96
[2023-09-01 06:25] LABS: Absolute Lymphocyte Count 1.82 X10^3/uL (0.83-4.51); Absolute Neutrophil Count 7.7 X10^3/uL (2.0-7.7); Basophil# 0.01 X10^3/uL; Basophil% 0.1 % (0-1); Eosinophil# 0.04 X10^3/uL; Eosinophils% 0.4 % (0-5); Hematocrit 36.5 % (40-54); Hemoglobin 11.4 g/dL (13.0-16.5); Lymphocyte # 1.82 X10^3/ul (0.83-4.51); Lymphocyte % 17.6 % (19-41); Mean Corp Hgb Conc 31.2 g/dL (32-36); Mean Corpuscular Hgb 27.3 pg (27.0-32.0); Mean Corpuscular Volume 87.5 fL (80-94); Mean Platelet Vol. 11.4 fl (6.2-12.0); Monocyte# 0.78 X10^3/uL; Monocyte% 7.5 % (0-10); NRBC Flagged by Analyzer 0 % (0-5); Neutrophil # 7.66 X10^3/uL (2.7-7.7); Neutrophil % 73.9 % (47-70); Platelet Count 169 K/mm3 (150-450); RBC Distribution Width CV 14.2 % (11.6-14.6); RBC Distribution Width SD 45.9 fl (35.1-43.9); Red Blood Count 4.17 M/mm3 (4.6-6.2); White Blood Count 10.4 K/mm3 (4.4-11.0)
[2023-09-01] MEDS: Insulin Lispro 100 UNIT/ML INSULN.PEN SC ×2 (06:59→11:04)
[2023-09-01 07:02] LABS: Anion Gap 0 (5-15); BUN 21 mg/dL (7-18); BUN/Creat Ratio 18.4 RATIO (10-20); Calcium,Total 8.6 mg/dL (8.5-10.1); Chloride 106 mmol/L (98-107); Creatinine, Serum 1.14 mg/dL (0.70-1.30); EST Glomerular Filtration Rate 69 mL/min (>60); Est Glom Filt Rate - Afr Amer 83 mL/min (>60); Estimated Creatinine Clearance 67.59 ml/min; Glucose 266 mg/dL (74-106); Potassium 4.2 mmol/L (3.5-5.1); Sodium Level 140 mmol/L (136-145)
[2023-09-01] MEDS: Ipratropium/Albuterol Sulfate 3 ML AMPUL.NEB INHALATION ×2 (07:03→12:58)
[2023-09-01] MEDS: busPIRone 15 MG TABLET 7.5 MG PO (07:11)
[2023-09-01] MEDS: hydrOXYzine 10 MG Tablet PO (07:11)
[2023-09-01] MEDS: hydrALAZINE 20 MG/ML Vial 10 MG IV (07:11)
[2023-09-01 07:21] LABS: Bedside Glucose 237 mg/dL (74-106)
[2023-09-01] MEDS: Carvedilol 12.5 MG Tablet 25 MG PO (07:57)
[2023-09-01] MEDS: Losartan Potassium 50 MG Tablet PO (09:12)
[2023-09-01] MEDS: Aspirin E.C. 81 MG Tablet PO (09:12)
[2023-09-01] MEDS: Enoxaparin 40 MG/0.4 ML Syringe SC (09:13)
[2023-09-01] MEDS: Pregabalin 75 MG Capsule PO (09:13)
[2023-09-01] MEDS: Isosorbide DN 30 MG Tablet PO (09:13)
[2023-09-01] MEDS: Fluoxetine HCl 40 MG CAPSULE PO (09:14)
[2023-09-01] MEDS: Finasteride 5 MG Tablet PO (09:14)
[2023-09-01] MEDS: amLODIPine 2.5 MG Tablet 5 MG PO (09:14)
[2023-09-01] MEDS: Clopidogrel Bisulfate 75 MG Tablet PO (09:14)
[2023-09-01] MEDS: Pantoprazole Sodium 40 MG Tablet PO (09:14)
[2023-09-01] MEDS: FLUoxetine 20 MG Capsule PO (09:14)
--- NOTE | 2023-09-01 10:14 | CASEMGMT ---
Discharge Planning Precert has been received by Theresa. SW and physician updated. Nuria Singh, Discharge Planning Asst.
--- NOTE | 2023-09-01 10:51 | CASEMGMT ---
RICO notified patient that he was approved to go back to [place] and he will go today. Plan: d/c to [place] under skilled level of care. Loan CARR
[2023-09-01] MEDS: Multivitamins,Ther W-Minerals Tablet 1 TABLET PO (11:05)
--- NOTE | 2023-09-01 11:12 | TREXTCAR_ITS ---
Diet Diet Order/Speech Therapy: 08/28/23 13:09 Diet: Regular - General Food consistency:: Soft & Bite Sized Liquid Consistency:: Regular/Thin Is pt able to select menu?: No Diet Comments: SMALL bites/sips, alternate bites/sips, SLOW rate, HOB raised Routine Orders/Code Status Enema Type: Fleetz Enema Frequency: Daily PRN Suppository Type: Dulcolax 10mg Suppository Frequency: Daily PRN O2 Frequency: Continuous Keep PO Greater than or Equal to (%): 90 Wound(s) lt outer heel: Wound Type: Neuropathic/Diabetic Foot Ulcer lt mid outer barrios: Wound Type: Abrasion Problem/Diagnosis (1) Acute exacerbation of chronic obstructive pulmonary disease: Status: Chronic Code(s): J44.1 - Chronic obstructive pulmonary disease with (acute) exacerbation (2) Respiratory failure with hypoxia: Status: Acute Code(s): J96.91 - Respiratory failure, unspecified with hypoxia (3) Acute and chronic respiratory failure, unspecified whether with hypoxia or hypercapnia: Status: Chronic Code(s): J96.20 - Acute and chronic respiratory failure, unspecified whether with hypoxia or hypercapnia (4) Acute respiratory acidosis: Status: Acute Code(s): J96.02 - Acute respiratory failure with hypercapnia Plan #Acute on chronic respiratory failure * due to COPD and pneumonia. * on IV vancomycin and zosyn * COVID 19 negative. * urine for Strep and Legionella are negative. Sputum culture negative. * will dc antibiotics after today's dose as blood cultures also negative, in addition to respiratory panel and strep and legionella also being negative. * wbc treding down and is 15.8 today * #Acute encephalopathy * resolved. * buspirone, fluoxetine, pregabalin and trazodone held. * * #HYpoglycemia: resolved. #Type 2 diabetes mellitus * lantus held on admission due to hypoglycemia * ISS. Accuchecks ACHS * #Hypertension; on losartan and amlodipine. #CAD: s/p PCI. On aspirin, plavix and high intensity statin. #PAD: s/p arthrectomy. On aspirin and plavix. #GERD: on PPI DVT prophylaxis: on heparin Disposition; awaiting placement. Allergies/Procedures Done in Hospital Allergies allopurinol Adverse Reaction (Verified 08/21/23 22:51) Vomiting Influenza Virus Vaccines Adverse Reaction (Verified 08/21/23 22:51) Vomiting pneumococcal vaccine Adverse Reaction (Verified 08/21/23 22:51) Vomiting Procedures: None Type of Care/Length of Stay Estimated LOS: Convalescent Care Less Than 30 days Type of Care Needed: Intermediate Rehab Potential: Fair Prognosis: Fair Additional Orders/Day of Discharge Day of Discharge: 09/01/23 Dietary and Speech Recommendations Dietitian Recommendations/Changes: continue regular diet- texture/consistency per [employer]; would benefit from 1800 calorie controlled/consistent CHO, sodium restricted diet however pt refusing to eat most foods at this time d/t [employer] modifications. Discharge Plan Admission Admit Date/Time: 08/28/23 10:16 Primary Reason for Your Visit: acue on chronic hypoxic respiratory failure Attending Provider: Nona Salcedo Primary Care Provider: Doretha Brown Consulting Providers: Rosendo Foreman; Stefano Lanier; Vahe Iglesias; Trae Caba; Jered Nieto; Sonal George CURING SUPERVISOR; Rex Tompkins Instructions Patient Instructions: ED Dyspnea Discharge Orders/Prescriptions Prescriptions: Continued aspirin [Adult Aspirin Regimen] 81 mg tablet,delayed release (DR/EC) 81 mg PO DAILY (DME) Ultra-Light Rollator Misc See Rx Instructions .Route Qty: 1 2RF Rx Instructions: As directed (DME) pen needle, diabetic 33 gauge x 5/16 needle See Rx Instructions .Route Qty: 200 3RF Rx Instructions: As directed melatonin 3 mg tablet 3 mg PO QHS fluoxetine 20 mg capsule 20 mg PO DAILY (DME) Lift Chair See Rx Instructions .Route .MEDSUPPLY Qty: 1 0RF Rx Instructions: As directed acetaminophen 500 MG tablet 1,000 mg PO Q24H PRN (Reason: PAIN ) Artificial Tears([id number]) 1-0.2-0.2 % Drops 2 drp EACH EYE Q1H PRN (Reason: DRY EYES) Qty: 0 0RF (DME) gauze bandage [Bordered Gauze] 4 X 4 bandage See Rx Instructions .ROUTE .MEDSUPPLY Qty: 14 2RF Rx Instructions: Daily cleanse left foot wound with soap and water, dry and apply Betadine solution and apply clean dressing losartan 50 mg tablet 50 mg PO DAILY fluoxetine 40 mg capsule 40 mg PO DAILY trazodone 150 mg tablet 150 mg PO QHS carvedilol 12.5 mg tablet 25 mg PO BID amlodipine 2.5 mg tablet 2.5 mg PO DAILY pantoprazole 40 mg tablet,delayed release (DR/EC) 40 mg PO DAILY buspirone 7.5 mg tablet 7.5 mg PO TID atorvastatin 80 mg tablet 80 mg PO QHS finasteride 5 mg tablet 5 mg PO DAILY pregabalin 75 mg Capsule 75 mg PO BID Qty: 10 0RF albuterol sulfate 90 mcg/actuation HFA aerosol inhaler 2 puff INHALATION Q4H PRN (Reason: SOB) Patient Comments: INHALE 2 PUFFS EVERY 4 TO 6 HOURS NEEDED FOR WHEEZING OR SHORTNESS OF BREATH, USE WITH SPACER docusate sodium 100 mg capsule 100 mg PO TID PRN (Reason: constipation) Patient Comments: TAKE 1 CAPSULE BY MOUTH THREE TIMES DAILY NEEDED for FOR CONSTIPATION for up to 5 (FIVE) days hydroxyzine HCl 10 mg tablet 10 mg PO TID Patient Comments: TAKE 1 TABLET BY MOUTH THREE TIMES DAILY bisacodyl 10 mg suppository 10 mg NH DAILY PRN (Reason: constipation) isosorbide dinitrate 30 mg tablet 30 mg PO DAILY DAILY VITAMIN FORMULA-MINERALS Tablet 1 tab PO DAILY insulin lispro [Humalog KwikPen Insulin] 100 unit/mL Insulin Pen See Protocol subcut ACHS Qty: 0 0RF Protocol: 4. Sliding Scale Insulin High-Med Dosing Condition: 150-199 mg/dl = 2 units Condition: 200-259 mg/dl = 4 units Condition: 260-324 mg/dl = 6 units Condition: 325-374 mg/dl = 8 units Condition: 375-409 mg/dl = 10 units Condition: 410-449 mg/dl = 11 units Condition: Greater than 449 call physician Protocol Text: - Use for Total Daily Dose of Insulin 56-80 units - Patient who are insulin resistant or septic HIGH MEDIUM DOSING ALGORITHM insulin lispro [Humalog KwikPen Insulin] 100 unit/mL Insulin Pen 15 unit subcut TIDAC Qty: 0 0RF insulin glargine-yfgn 100 unit/mL (3 mL) Insulin Pen 25 unit subcut BID Qty: 0 0RF clopidogrel 75 mg tablet 75 mg PO DAILY Qty: 30 1RF (DME) Wheelchair See Rx Instructions .Route .MEDSUPPLY Qty: 1 0RF Rx Instructions: As directed Referrals / Follow Up: Doretha Brown MD [Primary Care Provider] - Within 1 Week Disposition Disposition (needs filled in before D/C Order can be placed): [facility] (3) Acute and chronic respiratory failure, unspecified whether with hypoxia or hypercapnia Qualifiers: Respiratory failure complication: hypoxia and hypercapnia Qualified Code(s): J96.21 - Acute and chronic respiratory failure with hypoxia; J96.22 - Acute and chronic respiratory failure with hypercapnia
--- NOTE | 2023-09-01 11:13 | DS.PCM_ITS ---
Providers Date of Admission: 08/28/23 Date of Discharge: 09/01/23 Primary Care Physician: Dr. Doretha Brown MD Consultations 08/28/23 11:28 Consult: Service Now Developer / Pulmonary Medicine Routine Consulting Provider: Pulmonary Medicine matheus PalaciosJuan A Reason for Consult: respiratory failure EMERGENT Consult: No Notified: No Date Notified: 08/28/23 Time Notified: 10:29 08/28/23 16:23 Consult: Service Now Developer / Pulmonary Medicine Routine Consulting Provider: [facility] matheus [place] Reason for Consult: resp failure EMERGENT Consult: No Notified: Yes Date Notified: 08/28/23 Time Notified: 14:30 Method of Notification: Text Reason For Visit: RESPIRATORY FAILURE Diagnosis Discharge Diagnosis (1) Acute exacerbation of chronic obstructive pulmonary disease: Status: Chronic Code(s): J44.1 - Chronic obstructive pulmonary disease with (acute) exacerbation (2) Respiratory failure with hypoxia: Status: Acute Code(s): J96.91 - Respiratory failure, unspecified with hypoxia (3) Acute and chronic respiratory failure, unspecified whether with hypoxia or hypercapnia: Status: Chronic Code(s): J96.20 - Acute and chronic respiratory failure, unspecified whether with hypoxia or hypercapnia Qualifiers: Respiratory failure complication: hypoxia and hypercapnia Qualified Code(s): J96.21 - Acute and chronic respiratory failure with hypoxia; J96.22 - Acute and chronic respiratory failure with hypercapnia (4) Acute respiratory acidosis: Status: Acute Code(s): J96.02 - Acute respiratory failure with hypercapnia Plan #Acute on chronic respiratory failure * due to COPD and pneumonia. * on IV vancomycin and zosyn * COVID 19 negative. * urine for Strep and Legionella are negative. Sputum culture negative. * will dc antibiotics after today's dose as blood cultures also negative, in ad dition to respiratory panel and strep and legionella also being negative. * wbc treding down and is 15.8 today * #Acute encephalopathy * resolved. * buspirone, fluoxetine, pregabalin and trazodone held. * * #HYpoglycemia: resolved. #Type 2 diabetes mellitus * lantus held on admission due to hypoglycemia * ISS. Accuchecks ACHS * #Hypertension; on losartan and amlodipine. #CAD: s/p PCI. On aspirin, plavix and high intensity statin. #PAD: s/p arthrectomy. On aspirin and plavix. #GERD: on PPI DVT prophylaxis: on heparin Disposition; awaiting placement. Medications at Discharge Home Medications acetaminophen 500 mg tablet 1,000 mg PO Q24H PRN PAIN 02/11/21 aspirin 81 mg tablet,delayed release (Adult Aspirin Regimen) 81 mg PO DAILY HEART HEALTH 11/05/21 peg [id number] 1 %-0.2 %-0.2 % eye drops (Artificial Tears ([id number])) 2 drp EACH EYE Q1H PRN DRY EYES #0 mL 11/14/21 gauze bandage 4 X 4 (Bordered Gauze) #14 ea 07/03/22 [place]ra[place] [facility] [place] #1 ea 07/21/22 pen needle, diabetic 33 gauge x / #200 ea 12/02/22 fluoxetine 20 mg capsule 20 mg PO DAILY ANXIETY 03/23/23 melatonin 3 mg tablet 3 mg PO QHS INSOMNIA 03/23/23 amlodipine 2.5 mg tablet 2.5 mg PO DAILY BLOOD PRESSURE 05/25/23 atorvastatin 80 mg tablet 80 mg PO QHS CHOLESTEROL 05/25/23 buspirone 7.5 mg tablet 7.5 mg PO TID ANXIETY 05/25/23 carvedilol 12.5 mg tablet 25 mg PO BID HEART 05/25/23 finasteride 5 mg tablet 5 mg PO DAILY PROSTATE 05/25/23 fluoxetine 40 mg capsule 40 mg PO DAILY ANXIETY 05/25/23 losartan 50 mg tablet 50 mg PO DAILY BLOOD PRESSURE 05/25/23 pantoprazole 40 mg tablet,delayed release 40 mg PO DAILY ACID REFLUX 05/25/23 trazodone 150 mg tablet 150 mg PO QHS INSOMNIA 05/25/23 clopidogrel 75 mg tablet 75 mg PO DAILY BLOOD THINNER #30 tabs 05/28/23 pregabalin 75 mg capsule 75 mg PO BID pain #10 caps 06/08/23 insulin glargine-yfgn 100 unit/mL (3 mL) subcutaneous pen 25 unit (0.25 mL) subcut BID diabetes #0 mL 07/15/23 insulin lispro 100 unit/mL subcutaneous pen (Humalog KwikPen (U-100) Insulin) 15 unit (0.15 mL) subcut TIDAC diabetes #0 mL 07/15/23 insulin lispro 100 unit/mL subcutaneous pen (Humalog KwikPen (U-100) Insulin) See Protocol subcut ACHS #0 mL 07/15/23 Wheelchair #1 ea 07/23/23 albuterol sulfate 90 mcg/actuation aerosol inhaler 2 puff inhalation Q4H PRN SOB 07/27/23 docusate sodium 100 mg capsule 100 mg PO TID PRN constipation 07/27/23 hydroxyzine HCl 10 mg tablet 10 mg PO TID 07/27/23 Lift Chair #1 ea 08/06/23 bisacodyl 10 mg rectal suppository 10 mg DE DAILY PRN constipation 08/28/23 isosorbide dinitrate 30 mg tablet 30 mg PO DAILY 08/28/23 multivitamin with minerals (DAILY VITAMIN FORMULA-MINERALS tablet) 1 tab PO DAILY skin health 08/28/23 amoxicillin 875 mg-potassium clavulanate 125 mg tablet 1 tab PO BID #10 tabs 09/01/23 Hospital Course Operations None Procedures None Summary of Care Provided Minutes Spent on Discharge: 45 Hospital Course: Patient is a 63 y/o male with a PMH as outlined who was admitted via the ED on 08/28/2023 with a complaint of altered mental status. EMS was called and found to have a blood sugar of 52. He was also very short of breath with very low saturations. On arrival in the ED, he was saturating at 85% despite being on oxygen. HE was also had markedly elevated BP in the 200s systolic. He was also acidotic per ABG, with pH of 7.27 and pCO2 of 68.7, and CBC showed wbc of 15.9, hb of 13, and platelets of 244. CXR showed consolidation in the left upper lobe. He was admitted to the ICU and placed on BIPAP and treated for acute on chronic combined respiratory failure, pneumonia and acute metabolic encephalopathy. He was also hypoglycemic which subsequently resolved. He was eventually weaned down to his 2 L of oxygen. He was continued on IV Zosyn. His breathing improved and he felt much better. He was scheduled [facility]. [facility] on [facility]23. He is to follow-up with his primary care doctor within 1 to 2 weeks. Patient seen and examined prior to discharge. He had no complaints and had an uneventful night. Review of systems otherwise negative. Labs and vitals reviewed. Medication reviewed and reconciled. He was discharged on PO augmentin 1 tab bid x 5 days. Physical Exam Const alert, oriented x3 and no apparent distress Constitutional Narrative: anxious. General Appearance: cooperative and comfortable HEENT normocephalic, head/scalp atraumatic, hearing grossly normal bilaterally, moist oral mucous membranes and oropharynx normal Mouth: oral and palatal mucosa normal Eyes PERRL and EOMs intact bilaterally Neck no lymphadenopathy, supple and no JVD Lymph Lymphatic: no lymphadenopathy noted and no lymphedema noted Resp normal respiratory effort, no retractions, no use of accessory muscles and clear to auscultation bilaterally Resp Narrative: diminished breath sounds bibasally, no wheezes or crackles. on 2L of oxygen by nasal canula Cardio regular rate, regular rhythm, S1 normal heart sound, S2 normal heart sound and no murmurs GI normal to inspection, nondistended, normoactive bowel sounds, soft to palpation, non-tender and non-distended Extremity normal to inspection, full ROM, normal capillary refill, no clubbing, cyanosis or edema and no calf tenderness General Extremity: no tenderness to palpation of joints or extremities Skin General Skin Exam: no breakdown Neuro oriented x3, CN's II-XII intact bilaterally, moves all extremities, no focal motor deficits, no sensory deficits noted and deep tendon reflexes 2+ bilaterally Sensorium / Orientation: awake and alert Motor Exam: strength 5/5 throughout and general weakness Psych thought process normal, cooperative and affect normal Appearance: appropriate Weight / BMI Weight Weight: 281 lb 1.43 oz Body Mass Index (BMI) 40.3 ABG / Lab / Microbiology Data 09/01/23 05:37 09/01/23 05:37 Laboratory: Laboratory Results - last 24 hr 08/31/23 16:05: POC Glucose 340 H 08/31/23 22:51: POC Glucose 315 H 09/01/23 05:37: WBC 10.4, RBC 4.17 L, Hgb 11.4 L, Hct 36.5 L, MCV 87.5, MCH 27.3, MCHC 31.2 L, RDW Std Deviation 45.9 H, RDW Coeff of James 14.2, Plt Count 169, MPV 11.4, Immature Gran % (Auto) 0.500, Neut % (Auto) 73.9 H, Lymph % (Auto) 17.6 L, [place] % (Auto) 7.5, Eos % (Auto) 0.4, Baso % (Auto) 0.1, Absolute Neuts (auto) 7.7, Absolute Lymphs (auto) 1.82, Nucleated RBC % 0, Sodium 140, Potassium 4.2, Chloride 106, Carbon Dioxide 34.0 H, Anion Gap 0 L, BUN 21 H, Creatinine 1.14, Estim Creat Clear Calc 67.59, Est GFR (MDRD) Af Amer 83, Est GFR (MDRD) Non-Af 69, BUN/Creatinine Ratio 18.4, Glucose 266 H, Calcium 8.6 09/01/23 06:58: POC Glucose 237 H Microbiology: Microbiology 08/28/23 08:09 Blood Culture (Wb) #2 - Anticubital Right Blood Culture - Preliminary No growth in 48 hours. 08/28/23 07:50 Blood Culture (Wb) - Anticubital Right Blood Culture - Preliminary No growth in 48 hours. 08/29/23 13:40 Mucosa - Nasopharyngeal Respiratory Panel (PCR) - Final 08/28/23 18:55 Urine, Random Legionella Antigen - Final 08/28/23 18:55 Urine, Random Streptococcus pneumoniae Antigen (M - Final 08/28/23 08:08 Nasal Secretion SARS-CoV-2 & FLU Antigen (Rapid) - Final D/C Instructions Discharge Diet: Low fat / Low cholesterol Discharge Activity: Return to Normal Activity Weight Bearing Status: Weight bearing as tolerated Call your doctor if you observe: Fever of 101 or Higher, Shortness of breath, Dizziness, Swelling in the ankles and Chest pain Meaningful Use Info Meaningful Use Diagnoses (Choose all that apply): None applicable Discharge Plan Admission Admit Date/Time: 08/28/23 10:16 Primary Reason for Your Visit: acue on chronic hypoxic respiratory failure Attending Provider: Nona Salcedo Primary Care Provider: Doretha Brown Consulting Providers: Rosendo Foreman; Stefano Lanier; Vahe Iglesias; Trae Caba; Jreed Nieto; Sonal George NP; Rex Tompkins Instructions Patient Instructions: ED Dyspnea Discharge Orders/Prescriptions Prescriptions: New amoxicillin-pot clavulanate 875-125 mg tablet 1 tab PO BID Qty: 10 0RF Continued aspirin [Adult Aspirin Regimen] 81 mg tablet,delayed release (DR/EC) 81 mg PO DAILY (DME) Ultra-Light Rollator Misc See Rx Instructions .Route Qty: 1 2RF Rx Instructions: As directed (DME) pen needle, diabetic 33 gauge x 5/16 needle See Rx Instructions .Route Qty: 200 3RF Rx Instructions: As directed melatonin 3 mg tablet 3 mg PO QHS fluoxetine 20 mg capsule 20 mg PO DAILY (DME) Lift Chair See Rx Instructions .Route .MEDSUPPLY Qty: 1 0RF Rx Instructions: As directed acetaminophen 500 MG tablet 1,000 mg PO Q24H PRN (Reason: PAIN ) Artificial Tears([id number]) 1-0.2-0.2 % Drops 2 drp EACH EYE Q1H PRN (Reason: DRY EYES) Qty: 0 0RF (DME) gauze bandage [Bordered Gauze] 4 X 4 bandage See Rx Instructions .ROUTE .MEDSUPPLY Qty: 14 2RF Rx Instructions: Daily cleanse left foot wound with soap and water, dry and apply Betadine solution and apply clean dressing losartan 50 mg tablet 50 mg PO DAILY fluoxetine 40 mg capsule 40 mg PO DAILY trazodone 150 mg tablet 150 mg PO QHS carvedilol 12.5 mg tablet 25 mg PO BID amlodipine 2.5 mg tablet 2.5 mg PO DAILY pantoprazole 40 mg tablet,delayed release (DR/EC) 40 mg PO DAILY buspirone 7.5 mg tablet 7.5 mg PO TID atorvastatin 80 mg tablet 80 mg PO QHS finasteride 5 mg tablet 5 mg PO DAILY pregabalin 75 mg Capsule 75 mg PO BID Qty: 10 0RF albuterol sulfate 90 mcg/actuation HFA aerosol inhaler 2 puff INHALATION Q4H PRN (Reason: SOB) Patient Comments: INHALE 2 PUFFS EVERY 4 TO 6 HOURS NEEDED FOR WHEEZING OR SHORTNESS OF BREATH, USE WITH SPACER docusate sodium 100 mg capsule 100 mg PO TID PRN (Reason: constipation) Patient Comments: TAKE 1 CAPSULE BY MOUTH THREE TIMES DAILY NEEDED for FOR CONSTIPATION for up to 5 (FIVE) days hydroxyzine HCl 10 mg tablet 10 mg PO TID Patient Comments: TAKE 1 TABLET BY MOUTH THREE TIMES DAILY bisacodyl 10 mg suppository 10 mg DE DAILY PRN (Reason: constipation) isosorbide dinitrate 30 mg tablet 30 mg PO DAILY DAILY VITAMIN FORMULA-MINERALS Tablet 1 tab PO DAILY insulin lispro [Humalog KwikPen Insulin] 100 unit/mL Insulin Pen See Protocol subcut ACHS Qty: 0 0RF Protocol: 4. Sliding Scale Insulin High-Med Dosing Condition: 150-199 mg/dl = 2 units Condition: 200-259 mg/dl = 4 units Condition: 260-324 mg/dl = 6 units Condition: 325-374 mg/dl = 8 units Condition: 375-409 mg/dl = 10 units Condition: 410-449 mg/dl = 11 units Condition: Greater than 449 call physician Protocol Text: - Use for Total Daily Dose of Insulin 56-80 units - Patient who are insulin resistant or septic HIGH MEDIUM DOSING ALGORITHM insulin lispro [Humalog KwikPen Insulin] 100 unit/mL Insulin Pen 15 unit subcut TIDAC Qty: 0 0RF insulin glargine-yfgn 100 unit/mL (3 mL) Insulin Pen 25 unit subcut BID Qty: 0 0RF clopidogrel 75 mg tablet 75 mg PO DAILY Qty: 30 1RF (DME) Wheelchair See Rx Instructions .Route .MEDSUPPLY Qty: 1 0RF Rx Instructions: As directed Referrals / Follow Up: Doretha Brown MD [Primary Care Provider] - Within 1 Week Disposition Disposition (needs filled in before D/C Order can be placed): [facility] Facility Charges/Coding Visit Charges Inpatient E&M: 82222 Disch Hosp >30min
[2023-09-01 11:17] LABS: Bedside Glucose 383 mg/dL (74-106)
--- NOTE | 2023-09-01 13:26 | CASEMGMT ---
Discharge Planning Discharge orders, signed med list and transport time sent to [facility] via [facility]. [facility] will transport patient by wheelchair at 1:30p. Nursing, SW, and patient updated. Patient stated that he would call his . Discharge Planning Asst.
== END 2023-09-01 13:42 | DRG 189 ==
LOC: ED 09:03 → ICU 10:04 → PCU 08-29 14:28
PROVIDERS: Emergency Provider Emergency Medicine; PCP Internal Medicine; Visit Provider Student in an Organized Health Care Education/Training Program
DX: J96.21 Acute and chronic respiratory failure with hypoxia (principal); G93.41 Metabolic encephalopathy; J15.69 Pneumonia due to other Gram-negative bacteria; J44.1 Chronic obstructive pulmonary disease with (acute) exacerbation; J44.0 Chronic obstructive pulmonary disease with (acute) lower respiratory infection; E87.29 Other acidosis; E11.649 Type 2 diabetes mellitus with hypoglycemia without coma; J96.22 Acute and chronic respiratory failure with hypercapnia; E11.42 Type 2 diabetes mellitus with diabetic polyneuropathy; Z79.4 Long term (current) use of insulin; E11.22 Type 2 diabetes mellitus with diabetic chronic kidney disease; E11.51 Type 2 diabetes mellitus with diabetic peripheral angiopathy without gangrene; I12.9 Hypertensive chronic kidney disease with stage 1 through stage 4 chronic kidney disease, or unspecified chronic kidney disease; N18.9 Chronic kidney disease, unspecified; M54.50 Low back pain, unspecified; E78.00 Pure hypercholesterolemia, unspecified; I25.10 Atherosclerotic heart disease of native coronary artery without angina pectoris; K21.9 Gastro-esophageal reflux disease without esophagitis; Z79.82 Long term (current) use of aspirin; Z79.02 Long term (current) use of antithrombotics/antiplatelets; Z95.5 Presence of coronary angioplasty implant and graft
CPT/HCPCS: 36415; 36600; 71045; 80048; 80202; 82803; 82962; 83605; 83880; 84484; 85025; 87040; 87428; 87449; 87633; 92526; 92610; 93005; 94002; 94003; 94640; 94762; 97162; 97165; 97530; 97535; 97802; 97803; 99252; 99285; J7040; A4216; G0463

== ENCOUNTER 2023-09-03 06:06 | Emergency (ER) | payer MEDICARE, MEDICAID, SELFPAY ==
[2023-09-03] VITALS (7 sets, daily range): BP systolic 136–198; BP diastolic 80–92; PULSE 86–97; RESP 18–24; TEMP 36.9; O2SAT 91–95; BMI 20.9
--- NOTE | 2023-09-03 06:13 | EKG12_ITS ---
Test Reason : SOB Blood Pressure : / mmHG Vent. Rate : 095 BPM Atrial Rate : 095 BPM P-R Int : 204 ms QRS Dur : 092 ms QT Int : 402 ms P-R-T Axes : 075 027 028 degrees QTc Int : 505 ms Sinus rhythm with Premature supraventricular complexes Prolonged QT Abnormal ECG Confirmed by ARAMIS JOHNS, MAURO ([id number]), brands editor PILY PORTILLO ([id number]) on 09/07/2023 11:44:16 AM Referred By: SARA Confirmed By:MAURO SELF MD
--- NOTE | 2023-09-03 06:15 | ED.VIS.DYS ---
HPI <Dr. Hema Larsen MD - Last Filed: 09/03/23 07:58> History of Present Illness Chief Complaint: Shortness of Breath Informant: patient and EMS Narrative Narrative: Patient presents with dyspnea. This patient was just discharged from the hospital with COPD exacerbation, hypoglycemic episode and pneumonia. He is sent home on Augmentin. He is taking that. He states he has been doing well for the last day or so that he has been home. He woke up this morning and he was very short of breath. His last breathing treatment was somewhere last night so it may have been 8 to 12 hours ago. He got a breathing treatment just before coming in he does feel a lot better now. He is not having pain. No fevers. No vomiting. Of note, this patient is much more alert and responsive than when I have seen him before. He recognizes me when I go in the room. His breathing looks pretty good now for him. But he does have severe COPD and is on 4 to 5 L as was told to EMS. But patient states he is on 2 L. It looks like he was weaned down at least for a while to 2 L while in the hospital and I reviewed those inpatient records. [facility] <Dr. Hema Larsen MD - Last Filed: 09/03/23 07:58> [facility] Medical History CELESTE (acute kidney injury) Ambulates with cane Amputation of one or more toes Anxiety and depression Arrhythmia Arthritis Aspiration pneumonia Atherosclerotic heart disease of [place] coronary artery without angina pectoris Back pain Back spasm Bilateral leg weakness Blind left eye Blister (nonthermal), left foot, initial encounter Bronchiectasis with (acute) exacerbation Cardiology follow-up encounter Chronic cough Chronic respiratory failure with hypoxia CKD (chronic kidney disease) COPD (chronic obstructive pulmonary disease) Coronary artery disease CPAP (continuous positive airway pressure) dependence Debility, unspecified Decubitus ulcer limited to breakdown of skin (stage 2) Depression Diabetes Essential hypertension Gastric reflux High cholesterol History of aspiration pneumonia History of diabetes mellitus History of echocardiogram History of edema History of gout History of heart attack History of non-ST elevation myocardial infarction (NSTEMI) (08/2016) History of pain when walking History of steroid therapy Hyperglycemia due to type 2 diabetes mellitus Hypertension Insulin dependent diabetes mellitus Irregular heart beat Kidney stones Leg pain, right Leukocytosis Low back pain Memory impairment Migraines Mood disorder Non-smoker Noncompliance by declining intervention or support On home oxygen therapy Peripheral vascular occlusive disease Pneumonia Prostate disease Pulmonary nodule, left Recurrent falls Right ankle pain Right foot pain Shortness of breath on exertion Silent aspiration Sleep apnea Tremor Type 2 diabetes mellitus with diabetic polyneuropathy Ulcer of left foot, limited to breakdown of skin Vision loss of left eye Wears glasses Wound of left lower extremity Home Medications acetaminophen 500 mg tablet 1,000 mg PO Q24H PRN PAIN 02/11/21 [History Last Taken 08/08/23] aspirin 81 mg tablet,delayed release (Adult Aspirin Regimen) 81 mg PO DAILY HEART HEALTH 11/05/21 [History Last Taken 08/09/23] peg [id number] 1 %-0.2 %-0.2 % eye drops (Artificial Tears ([id number])) 2 drp EACH EYE Q1H PRN DRY EYES #0 mL 11/14/21 [Rx Last Taken 06/04/23] gauze bandage 4 X 4 (Bordered Gauze) #14 ea 07/03/22 [Rx Last Taken Unknown] walker (Ultra-Light Rollator [facility]) #1 ea 07/21/22 [Rx Last Taken Unknown] pen needle, diabetic 33 gauge x 5/16 #200 ea 12/02/22 [Rx Last Taken Unknown] fluoxetine 20 mg capsule 20 mg PO DAILY ANXIETY 03/23/23 [History Last Taken 08/09/23] melatonin 3 mg tablet 3 mg PO QHS INSOMNIA 03/23/23 [History Last Taken 08/08/23] amlodipine 2.5 mg tablet 2.5 mg PO DAILY BLOOD PRESSURE 05/25/23 [History Last Taken 08/08/23] atorvastatin 80 mg tablet 80 mg PO QHS CHOLESTEROL 05/25/23 [History Last Taken 08/08/23] buspirone 7.5 mg tablet 7.5 mg PO TID ANXIETY 05/25/23 [History Last Taken 08/09/23] carvedilol 12.5 mg tablet 25 mg PO BID HEART 05/25/23 [History Last Taken 08/09/23] finasteride 5 mg tablet 5 mg PO DAILY PROSTATE 05/25/23 [History Last Taken 08/09/23] fluoxetine 40 mg capsule 40 mg PO DAILY ANXIETY 05/25/23 [History Last Taken 08/09/23] losartan 50 mg tablet 50 mg PO DAILY BLOOD PRESSURE 05/25/23 [History Last Taken 08/09/23] pantoprazole 40 mg tablet,delayed release 40 mg PO DAILY ACID REFLUX 05/25/23 [History Last Taken 08/09/23] trazodone 150 mg tablet 150 mg PO QHS INSOMNIA 05/25/23 [History Last Taken 08/08/23] clopidogrel 75 mg tablet 75 mg PO DAILY BLOOD THINNER #30 tabs 05/28/23 [Rx Last Taken 08/09/23] pregabalin 75 mg capsule 75 mg PO BID pain #10 caps 06/08/23 [Rx Last Taken 08/09/23] insulin glargine-yfgn 100 unit/mL (3 mL) subcutaneous pen 25 unit (0.25 mL) subcut BID diabetes #0 mL 07/15/23 [Rx Last Taken 08/09/23] insulin lispro 100 unit/mL subcutaneous pen (Humalog KwikPen (U-100) Insulin) 15 unit (0.15 mL) subcut TIDAC diabetes #0 mL 07/15/23 [Rx Last Taken 08/09/23] insulin lispro 100 unit/mL subcutaneous pen (Humalog KwikPen (U-100) Insulin) See Protocol subcut ACHS #0 mL 07/15/23 [Rx Last Taken 08/09/23] Wheelchair #1 ea 07/23/23 [Rx Last Taken Unknown] albuterol sulfate 90 mcg/actuation aerosol inhaler 2 puff inhalation Q4H PRN SOB 07/27/23 [History Last Taken Unknown] docusate sodium 100 mg capsule 100 mg PO TID PRN constipation 07/27/23 [History Last Taken Unknown] hydroxyzine HCl 10 mg tablet 10 mg PO TID 07/27/23 [History Last Taken 08/09/23] Lift Chair #1 ea 08/06/23 [Rx Last Taken Unknown] bisacodyl 10 mg rectal suppository 10 mg MN DAILY PRN constipation 08/28/23 [History Last Taken Unknown] isosorbide dinitrate 30 mg tablet 30 mg PO DAILY 08/28/23 [History Last Taken Unknown] multivitamin with minerals (DAILY VITAMIN FORMULA-MINERALS tablet) 1 tab PO DAILY skin health 08/28/23 [History Last Taken 08/28/23] amoxicillin 875 mg-potassium clavulanate 125 mg tablet 1 tab PO BID #10 tabs 09/01/23 [Rx Last Taken Unknown] Allergy/AdvReac Type Severity Reaction Status Date / Time allopurinol AdvReac Vomiting Verified 09/03/23 06:07 Influenza Virus Vaccines AdvReac Vomiting Verified 09/03/23 06:07 pneumococcal vaccine AdvReac Vomiting Verified 09/03/23 06:07 Family History Mother Diabetes Heart disease CHF Father Heart disease OK/CAD Myocardial infarction Surgical History H/O lithotripsy History of angioplasty of peripheral vessel (2016) History of angioplasty of peripheral vessel History of ankle surgery History of cardiac catheterization History of coronary artery stent placement (08/2016) History of coronary artery stent placement History of esophagogastroduodenoscopy (EGD) History of left heart catheterization (11/15/17) History of thyroid surgery Hx of lithotripsy Hx of surgery to heart and great vessels, presenting hazards to health Hx of surgical procedure Hx of thyroidectomy Hx of toe surgery Hx of toe surgery PEG (percutaneous endoscopic gastrostomy) status Social History household members: spouse housing: apartment Smoking Status: Never smoker alcohol intake: never substance use type: does not use ROS <Dr. Hema Larsen MD - Last Filed: 09/03/23 07:58> ROS ED Constitutional Constitutional ED: Denies fever(s) Eyes Eyes: Denies change in vision ENT ENT ED: Denies rhinorrhea Cardiovascular Cardiovascular: Denies chest pain, palpitations or racing heartbeat Respiratory/Chest Respiratory/Chest: Reports cough and dyspnea; Denies sputum Gastrointestinal Gastrointestinal: Denies nausea or vomiting Musculoskeletal Musculoskeletal: Denies myalgias Neurologic Neurologic: Denies headache(s) Psychiatric Psychiatric: Reports anxiety Hematologic/Lymphatic Hematologic/Lymphatic: Reports easy bleeding and easy bruising Allergic/Immunologic Allergic/Immunologic ED: Denies urticaria EXAM <Dr. Hema Larsen MD - Last Filed: 09/03/23 07:58> Physical Exam Narrative Exam Narrative: CONSTITUTIONAL: Patient is nontoxic in appearance. The patient looks comfortable. Work of breathing looks better than when I normally see this patient. HEENT: No notable trauma. Mucous membranes moist. NECK:No JVD. No stridor. CARDIOVASCULAR: Regular rate. Regular rhythm. No notable murmur. No JVD. RESPIRATORY: No respiratory distress. He is breathing actually looks pretty good today. I am really not hearing any notable wheezes. His lungs sound pretty good. GASTROINTESTINAL: Not distended. Bowel sounds are normal. No tenderness. No guarding. No rebound. No palpable mass. No bruit is heard. GENITOURINARY: No tenderness over the bladder. MUSCULOSKELETAL: Atraumatic. Patient has chronic peripheral edema. NEUROLOGICAL: Patient is alert and appropriate. He is not at all sleepy or lethargic today. SKIN: No noted rashes. No diaphoresis. PSYCHIATRIC: Patient is calm. Mood is appropriate. Const Vital Signs: 09/03/23 06:08 09/03/23 06:12 09/03/23 06:13 Temperature 98.5 F 98.5 F Temperature Source Oral Temporal Pulse Rate 96 95 Respiratory Rate 19 H 18 Respiratory Pattern Blood Pressure 198/84 H 198/84 H Blood Pressure Mean 122 122 Pulse Ox 91 91 Oxygen Delivery Method Non-Rebreather Non-Rebreather Non-Rebreather Oxygen Flow Rate (L/min) 10 10 10 09/03/23 06:51 09/03/23 07:12 09/03/23 07:42 Temperature 98.5 F Temperature Source Oral Pulse Rate 96 97 Respiratory Rate 24 H 23 H Respiratory Pattern Tachypnea Blood Pressure 136/92 H Blood Pressure Mean 106 Pulse Ox 95 91 Oxygen Delivery Method Nasal Cannula Nasal Cannula Oxygen Flow Rate (L/min) 7 6 <Rolo Gilman MD - Last Filed: 09/03/23 09:17> Physical Exam Const Vital Signs: 09/03/23 06:08 09/03/23 06:12 09/03/23 06:13 Temperature 98.5 F 98.5 F Temperature Source Oral Temporal Pulse Rate 96 95 Respiratory Rate 19 H 18 Respiratory Pattern Blood Pressure 198/84 H 198/84 H Blood Pressure Mean 122 122 Pulse Ox 91 91 Oxygen Delivery Method Non-Rebreather Non-Rebreather Non-Rebreather Oxygen Flow Rate (L/min) 10 10 10 09/03/23 06:51 09/03/23 07:12 09/03/23 07:42 Temperature 98.5 F Temperature Source Oral Pulse Rate 96 97 Respiratory Rate 24 H 23 H Respiratory Pattern Tachypnea Blood Pressure 136/92 H Blood Pressure Mean 106 Pulse Ox 95 91 Oxygen Delivery Method Nasal Cannula Nasal Cannula Oxygen Flow Rate (L/min) 7 6 [facility] <Dr. Hema Larsen MD - Last Filed: 09/03/23 07:58> [facility] Narrative Medical decision making narrative: My independent interpretation of the patient's single view AP chest x-ray still shows changes near his right middle lobe right base. But it is better than his images from 08/28/2023. Final reading is pending. Patient's white count is 24 9. This is right leg. But he on and up out of and he is also on steroids. He has my wound and anemia but is improved from the other day. Platelets are normal. Electrolytes are showing no marked abnormalities. Patient's final reading of the x-ray is still pending at this time. We have weaned the patient down at 6 L right now and he is doing quite well. Respiratory therapist thought his lungs sounded good. We are going to try to wean him down further. EMS told us that he was on 5 L. He thought he was on 2 L. But I think we need to make sure he is at least stable on 6 L. I like to try to get him to 4. If he is otherwise doing well I do not think he has to be readmitted. He is on antibiotics and steroids. He has breathing treatments. The respiratory therapist wanted to find out if the patient was getting oxygen bled in with his CPAP at night. Evidently they have had the issue where this has not been happening. We are going to try to contact [facility] to make sure this is occurring. I also think they probably need to wake this patient up to have a breathing treatment at night because he has very significant disease. It sounds like he went all night without any treatments. As long as we can get him stabilized I hope we can get him back to [facility].. Lab Data Attestation: I reviewed the patient's lab results. Labs: Laboratory Results - last 24 hr 09/03/23 06:25 WBC 24.9 H RBC 4.59 L Hgb 12.8 L Hct 40.9 MCV 89.1 MCH 27.9 MCHC 31.3 L RDW Std Deviation 45.1 H RDW Coeff of James 14.1 Plt Count 195 MPV 11.7 Immature Gran % (Auto) 0.700 Neut % (Auto) 88.6 H Lymph % (Auto) 5.4 L Page % (Auto) 3.9 Eos % (Auto) 1.2 Baso % (Auto) 0.2 Absolute Neuts (auto) 22.0 H Absolute Lymphs (auto) 1.35 Nucleated RBC % 0 Sodium 142 Potassium 4.0 Chloride 109 H Carbon Dioxide 31.0 Anion Gap 2 L BUN 14 Creatinine 0.99 Estim Creat Clear Calc 70.69 Est GFR (MDRD) Af Amer 98 Est GFR (MDRD) Non-Af 81 BUN/Creatinine Ratio 14.1 Glucose 167 H Calcium 9.0 Radiography Diagnostic Testing: Clinical Impression(s) from Imaging Studies Chest X-Ray 09/03/23 07:05 IMPRESSION: Persistent bibasilar infiltrates although there has been improvement. Further follow-up recommended. Electronically Signed: Den Carver MD at 8:04 EDT , <Rolo Gilman MD - Last Filed: 09/03/23 09:17> [facility] Narrative Medical decision making narrative: My independent interpretation of the patient's single view AP chest x-ray still shows changes near his right middle lobe right base. But it is better than his images from 08/28/2023. Final reading is pending. Patient's white count is 24 9. This is right leg. But he on and up out of and he is also on steroids. He has my wound and anemia but is improved from the other day. Platelets are normal. Electrolytes are showing no marked abnormalities. Patient's final reading of the x-ray is still pending at this time. We have weaned the patient down at 6 L right now and he is doing quite well. Respiratory therapist thought his lungs sounded good. We are going to try to wean him down further. EMS told us that he was on 5 L. He thought he was on 2 L. But I think we need to make sure he is at least stable on 6 L. I like to try to get him to 4. If he is otherwise doing well I do not think he has to be readmitted. He is on antibiotics and steroids. He has breathing treatments. The respiratory therapist wanted to find out if the patient was getting oxygen bled in with his CPAP at night. Evidently they have had the issue where this has not been happening. We are going to try to contact [facility] to make sure this is occurring. I also think they probably need to wake this patient up to have a breathing treatment at night because he has very significant disease. It sounds like he went all night without any treatments. As long as we can get him stabilized I hope we can get him back to [facility]. Dr. Gilman: Patient endorsed to me by Dr. Larsen to continue monitoring this patient and weaning his oxygen down to 5 L. I was approached by the RN, stating that patient has been on 5 L nasal cannula oxygen for at least 40 minutes and maintaining his oxygen saturation levels at 94%. He feels improved and would like to be discharged. At this point in time, he will be discharged back to [facility] for a COPD flare. He may require breathing treatments every 4-6 hours, even overnight. Disposition is discharged in stable condition. Lab Data Labs: Laboratory Results - last 24 hr 09/03/23 06:25 WBC 24.9 H RBC 4.59 L Hgb 12.8 L Hct 40.9 MCV 89.1 MCH 27.9 MCHC 31.3 L RDW Std Deviation 45.1 H RDW Coeff of James 14.1 Plt Count 195 MPV 11.7 Immature Gran % (Auto) 0.700 Neut % (Auto) 88.6 H Lymph % (Auto) 5.4 L Page % (Auto) 3.9 Eos % (Auto) 1.2 Baso % (Auto) 0.2 Absolute Neuts (auto) 22.0 H Absolute Lymphs (auto) 1.35 Nucleated RBC % 0 Sodium 142 Potassium 4.0 Chloride 109 H Carbon Dioxide 31.0 Anion Gap 2 L BUN 14 Creatinine 0.99 Estim Creat Clear Calc 70.69 Est GFR (MDRD) Af Amer 98 Est GFR (MDRD) Non-Af 81 BUN/Creatinine Ratio 14.1 Glucose 167 H Calcium 9.0 Radiography Diagnostic Testing: Clinical Impression(s) from Imaging Studies Chest X-Ray 09/03/23 07:05 IMPRESSION: Persistent bibasilar infiltrates although there has been improvement. Further follow-up recommended. Electronically Signed: Den Carver MD at 8:04 EDT , Discharge Plan Triage Chief Complaint: Shortness of Breath ED Provider: Hema Larsen Dx/Rx/DC Orders Clinical Impression: History of recent pneumonia, COPD (chronic obstructive pulmonary disease) Instructions: ED COPD Flare Prescriptions: No Action aspirin [Adult Aspirin Regimen] 81 mg tablet,delayed release (DR/EC) 81 mg PO DAILY (DME) Ultra-Light Rollator Misc See Rx Instructions .Route Qty: 1 2RF Rx Instructions: As directed (DME) pen needle, diabetic 33 gauge x 5/16 needle See Rx Instructions .Route Qty: 200 3RF Rx Instructions: As directed melatonin 3 mg tablet 3 mg PO QHS fluoxetine 20 mg capsule 20 mg PO DAILY (DME) Lift Chair See Rx Instructions .Route .MEDSUPPLY Qty: 1 0RF Rx Instructions: As directed acetaminophen 500 MG tablet 1,000 mg PO Q24H PRN (Reason: PAIN ) Artificial Tears([id number]) 1-0.2-0.2 % Drops 2 drp EACH EYE Q1H PRN (Reason: DRY EYES) Qty: 0 0RF (DME) gauze bandage [Bordered Gauze] 4 X 4 bandage See Rx Instructions .ROUTE .MEDSUPPLY Qty: 14 2RF Rx Instructions: Daily cleanse left foot wound with soap and water, dry and apply Betadine solution and apply clean dressing losartan 50 mg tablet 50 mg PO DAILY fluoxetine 40 mg capsule 40 mg PO DAILY trazodone 150 mg tablet 150 mg PO QHS carvedilol 12.5 mg tablet 25 mg PO BID amlodipine 2.5 mg tablet 2.5 mg PO DAILY pantoprazole 40 mg tablet,delayed release (DR/EC) 40 mg PO DAILY buspirone 7.5 mg tablet 7.5 mg PO TID atorvastatin 80 mg tablet 80 mg PO QHS finasteride 5 mg tablet 5 mg PO DAILY pregabalin 75 mg Capsule 75 mg PO BID Qty: 10 0RF albuterol sulfate 90 mcg/actuation HFA aerosol inhaler 2 puff INHALATION Q4H PRN (Reason: SOB) Patient Comments: INHALE 2 PUFFS EVERY 4 TO 6 HOURS NEEDED FOR WHEEZING OR SHORTNESS OF BREATH, USE WITH SPACER docusate sodium 100 mg capsule 100 mg PO TID PRN (Reason: constipation) Patient Comments: TAKE 1 CAPSULE BY MOUTH THREE TIMES DAILY NEEDED for FOR CONSTIPATION for up to 5 (FIVE) days hydroxyzine HCl 10 mg tablet 10 mg PO TID Patient Comments: TAKE 1 TABLET BY MOUTH THREE TIMES DAILY bisacodyl 10 mg suppository 10 mg MN DAILY PRN (Reason: constipation) isosorbide dinitrate 30 mg tablet 30 mg PO DAILY DAILY VITAMIN FORMULA-MINERALS Tablet 1 tab PO DAILY amoxicillin-pot clavulanate 875-125 mg tablet 1 tab PO BID Qty: 10 0RF insulin lispro [Humalog KwikPen Insulin] 100 unit/mL Insulin Pen See Protocol subcut ACHS Qty: 0 0RF Protocol: 4. Sliding Scale Insulin High-Med Dosing Condition: 150-199 mg/dl = 2 units Condition: 200-259 mg/dl = 4 units Condition: 260-324 mg/dl = 6 units Condition: 325-374 mg/dl = 8 units Condition: 375-409 mg/dl = 10 units Condition: 410-449 mg/dl = 11 units Condition: Greater than 449 call physician Protocol Text: - Use for Total Daily Dose of Insulin 56-80 units - Patient who are insulin resistant or septic HIGH MEDIUM DOSING ALGORITHM insulin lispro [Humalog KwikPen Insulin] 100 unit/mL Insulin Pen 15 unit subcut TIDAC Qty: 0 0RF insulin glargine-yfgn 100 unit/mL (3 mL) Insulin Pen 25 unit subcut BID Qty: 0 0RF clopidogrel 75 mg tablet 75 mg PO DAILY Qty: 30 1RF (DME) Wheelchair See Rx Instructions .Route .MEDSUPPLY Qty: 1 0RF Rx Instructions: As directed Primary Care Provider: Doretha Brown Referrals: Doretha Brown MD [Primary Care Provider] - Activity Restrictions/Additional Instructions: Continue your oxygen use at the long term facility. He will most likely require your aerosol treatments every 4-6 hours, even overnight. Disposition Disposition: Home, Self Care
[2023-09-03] MEDS: Ipratropium/Albuterol Sulfate 3 ML AMPUL.NEB INHALATION (06:20)
[2023-09-03 06:30] LABS: Absolute Lymphocyte Count 1.35 X10^3/uL (0.83-4.51); Basophil# 0.06 X10^3/uL; Basophil% 0.2 % (0-1); Eosinophils% 1.2 % (0-5); Hematocrit 40.9 % (40-54); Hemoglobin 12.8 g/dL (13.0-16.5); Lymphocyte # 1.35 X10^3/ul (0.83-4.51); Lymphocyte % 5.4 % (19-41); Mean Corp Hgb Conc 31.3 g/dL (32-36); Mean Corpuscular Hgb 27.9 pg (27.0-32.0); Mean Corpuscular Volume 89.1 fL (80-94); Mean Platelet Vol. 11.7 fl (6.2-12.0); Monocyte# 0.98 X10^3/uL; Monocyte% 3.9 % (0-10); NRBC Flagged by Analyzer 0 % (0-5); Neutrophil # 22.04 X10^3/uL (2.7-7.7); Neutrophil % 88.6 % (47-70); POSITIVE DIFFERENTIAL YES; Platelet Count 195 K/mm3 (150-450); RBC Distribution Width CV 14.1 % (11.6-14.6); RBC Distribution Width SD 45.1 fl (35.1-43.9); Red Blood Count 4.59 M/mm3 (4.6-6.2); White Blood Count 24.9 K/mm3 (4.4-11.0)
[2023-09-03 06:31] LABS: Differential Indicated SCAN CRITERIA MET
[2023-09-03 06:47] LABS: Anion Gap 2 (5-15); BUN 14 mg/dL (7-18); BUN/Creat Ratio 14.1 RATIO (10-20); Chloride 109 mmol/L (98-107); Creatinine, Serum 0.99 mg/dL (0.70-1.30); EST Glomerular Filtration Rate 81 mL/min (>60); Est Glom Filt Rate - Afr Amer 98 mL/min (>60); Estimated Creatinine Clearance 70.69 ml/min; Glucose 167 mg/dL (74-106); Sodium Level 142 mmol/L (136-145)
--- NOTE | 2023-09-03 07:05 | RAD_ITS ---
STUDY: X-RAY CHEST REASON FOR EXAM: Male, 63 years old. SOB TECHNIQUE: Single AP portable view of the chest. COMPARISON: Comparison is made with prior study dated August 28, 2023. FINDINGS: EKG electrodes are seen. Stable elevation of the right hemidiaphragm. Persistent infiltrate in the medial aspect of the right lung base as well as in the left lower lobe although there has been improvement. Further radiographic follow-up is recommended. Blunting of the left costophrenic angle. Normal size heart. Normal mediastinum and pat. Normal visualized pulmonary arteries. Normal visualized aortic arch and descending thoracic aorta. There are diffuse degenerative changes of the visualized thoracic spine. Normal visualized ribs, clavicles, and shoulders. There is no demonstrated abnormality of the visualized soft tissue structures of the upper abdomen. RAD/Chest 1 View (Portable) IMPRESSION: Persistent bibasilar infiltrates although there has been improvement. Further follow-up recommended. Electronically Signed: Den Carver MD at 8:04 EDT ,
--- NOTE | 2023-09-03 08:00 | ED.RN ---
Patient cleaned of incontinent urine. Repositioned in bed.
--- NOTE | 2023-09-03 10:19 | CM.ED ---
Social Work SW performed chart review; HCPOA document on file as of 2022 but was completed at [facility] in 2020 with SW assistance. On HCPOA document, patient indicated he did not complete a LW, no LW document on file. Patient's HCPOA is patient's significant other, She and alternate is patient's sister, Alberta. Lolis Dhaliwal [employer] PRESERVATION SPECIALIST, [place]
== END 2023-09-03 11:29 | disposition home or self-care (01) ==
PROVIDERS: Emergency Provider Emergency Medicine; PCP Internal Medicine; Visit Provider Emergency Medicine
DX: J44.9 Chronic obstructive pulmonary disease, unspecified (principal); Z93.1 Gastrostomy status; E11.22 Type 2 diabetes mellitus with diabetic chronic kidney disease; E11.42 Type 2 diabetes mellitus with diabetic polyneuropathy; E11.65 Type 2 diabetes mellitus with hyperglycemia; Z79.4 Long term (current) use of insulin; I25.10 Atherosclerotic heart disease of native coronary artery without angina pectoris; E78.00 Pure hypercholesterolemia, unspecified; I12.9 Hypertensive chronic kidney disease with stage 1 through stage 4 chronic kidney disease, or unspecified chronic kidney disease; N18.9 Chronic kidney disease, unspecified; Z99.89 Dependence on other enabling machines and devices; I25.2 Old myocardial infarction; I5A Non-ischemic myocardial injury (non-traumatic); Z99.81 Dependence on supplemental oxygen; Z79.899 Other long term (current) drug therapy; Z79.82 Long term (current) use of aspirin; F41.8 Other specified anxiety disorders; K21.9 Gastro-esophageal reflux disease without esophagitis; Z79.02 Long term (current) use of antithrombotics/antiplatelets; Z95.820 Peripheral vascular angioplasty status with implants and grafts; Z95.5 Presence of coronary angioplasty implant and graft; Z87.01 Personal history of pneumonia (recurrent)
CPT/HCPCS: 71045; 80048; 85025; 93005; 94640; 99285; A4216

== ENCOUNTER → 2023-10-15 | Outpatient (CLI) | payer MEDICARE, MEDICAID, SELFPAY | END | disposition home or self-care (01) | PROVIDERS: PCP Internal Medicine; Referring Provider Podiatrist; Visit Provider Podiatrist | DX: L97.523 Non-pressure chronic ulcer of other part of left foot with necrosis of muscle (principal) | CPT/HCPCS: 87070; 87075; 87077; 87186; 87205 ==

== ENCOUNTER 2023-10-19 14:18 | Inpatient (IN) | payer MEDICARE, MEDICAID, SELFPAY ==
[2023-10-19 14:19] VITALS: BP 143/90; PULSE 86; RESP 18; TEMP 36.6; O2SAT 99
--- NOTE | 2023-10-19 15:12 | EDS_ITS ---
HPI <SUJATHA Silva - Last Filed: 10/19/23 17:02> History of Present Illness Chief Complaint: Wound Check Narrative Narrative: 63-year-old male with PMH HTN, DM2, neuropathy, PAD presents with a nonhealing left heel ulcer has been there for 2 to 3 weeks. He states it started when he went to a long-term for debility. He has been on oral ciprofloxacin and had an x-ray showing osteomyelitis and was sent in by Dr. Hess for admission and surgery. He denies fever or chills. He states he has some pain in the wound but has decreased feeling in his feet from neuropathy [facility] <SUJATHA Silva - Last Filed: 10/19/23 17:02> [facility] Medical History CELESTE (acute kidney injury) Ambulates with cane Amputation of one or more toes Anxiety and depression Arrhythmia Arthritis Aspiration pneumonia Atherosclerotic heart disease of [place] coronary artery without angina pectoris Back pain Back spasm Bilateral leg weakness Blind left eye Blister (nonthermal), left foot, initial encounter Bronchiectasis with (acute) exacerbation Cardiology follow-up encounter Chronic cough Chronic respiratory failure with hypoxia CKD (chronic kidney disease) COPD (chronic obstructive pulmonary disease) Coronary artery disease CPAP (continuous positive airway pressure) dependence Debility, unspecified Decubitus ulcer limited to breakdown of skin (stage 2) Depression Diabetes Essential hypertension Gastric reflux High cholesterol History of aspiration pneumonia History of diabetes mellitus History of echocardiogram History of edema History of gout History of heart attack History of non-ST elevation myocardial infarction (NSTEMI) (08/2016) History of pain when walking History of steroid therapy Hyperglycemia due to type 2 diabetes mellitus Hypertension Insulin dependent diabetes mellitus Irregular heart beat Kidney stones Leg pain, right Leukocytosis Low back pain Memory impairment Migraines Mood disorder Non-smoker Noncompliance by declining intervention or support On home oxygen therapy Peripheral vascular occlusive disease Pneumonia Prostate disease Pulmonary nodule, left Recurrent falls Respiratory failure with hypoxia Right ankle pain Right foot pain Shortness of breath on exertion Silent aspiration Sleep apnea Tremor Type 2 diabetes mellitus with diabetic polyneuropathy Ulcer of left foot, limited to breakdown of skin Vision loss of left eye Wears glasses Wound of left lower extremity Home Medications gauze bandage 4 X 4 (Bordered Gauze) #14 ea 07/03/22 [Rx Last Taken Unknown] walker (Ultra-Light Rollator misc) #1 ea 07/21/22 [Rx Last Taken Unknown] pen needle, diabetic 33 gauge x 04/13 #200 ea 12/02/22 [Rx Last Taken Unknown] fluoxetine 20 mg capsule 20 mg PO DAILY ANXIETY 03/23/23 [History Last Taken 10/19/23] melatonin 3 mg tablet 3 mg PO QHS INSOMNIA 03/23/23 [History Last Taken 10/18/23] atorvastatin 80 mg tablet 80 mg PO QHS CHOLESTEROL 05/25/23 [History Last Taken 10/18/23] fluoxetine 40 mg capsule 40 mg PO DAILY ANXIETY 05/25/23 [History Last Taken 10/19/23] pantoprazole 40 mg tablet,delayed release 40 mg PO DAILY ACID REFLUX 05/25/23 [History Last Taken 10/19/23] trazodone 150 mg tablet 150 mg PO QHS INSOMNIA 05/25/23 [History Last Taken 10/18/23] Wheelchair #1 ea 07/23/23 [Rx Last Taken Unknown] Lift Chair #1 ea 08/06/23 [Rx Last Taken Unknown] bisacodyl 10 mg rectal suppository 10 mg [place] DAILY PRN CONSTIPATION 08/28/23 [History Last Taken Unknown] flash glucose sensor ([employer] IT [employer] Mago 14 Day Sensor kit) #1 ea 10/01/23 [Rx Last Taken Unknown] amlodipine 10 mg tablet 10 mg PO BID BLOOD PRESSURE 10/19/23 [History Last Taken 10/19/23] ascorbic acid (vitamin C) 500 mg tablet 500 mg PO BID SUPPLEMENT 10/19/23 [History Last Taken 10/19/23] aspirin 81 mg tablet,delayed release (Ecotrin Low Strength) 81 mg PO DAILY HEART HEALTH 10/19/23 [History Last Taken 10/19/23] ciprofloxacin HCl 750 mg tablet 750 mg PO BID ANTIBIOTIC 10/19/23 [History Last Taken 10/19/23] clopidogrel 75 mg tablet 75 mg PO QHS BLOOD THINNER 10/19/23 [History Last Taken 10/18/23] glimepiride 2 mg tablet 2 mg PO BID DIABETES 10/19/23 [History Last Taken 10/19/23] haloperidol lactate 2 mg/mL oral concentrate 1 mg PO Q6H PRN AGITATION 10/19/23 [History Last Taken Unknown] hydroxyzine HCl 25 mg tablet 50 mg PO QHS 10/19/23 [History Last Taken 10/18/23] hyoscyamine sulfate 0.125 mg tablet 0.125 mg PO Q4H PRN BLADDER 10/19/23 [History Last Taken Unknown] insulin detemir U-100 100 unit/mL (3 mL) subcutaneous pen (Levemir FlexPen) 25 unit subcut BID DIABETES 10/19/23 [History Last Taken 10/19/23] isosorbide mononitrate 30 mg tablet,extended release 24 hr 30 mg PO DAILY HEART 10/19/23 [History Last Taken 10/19/23] lorazepam 0.5 mg tablet 0.5 mg PO Q4H PRN ANXIETY/AGITATION 10/19/23 [History Last Taken Unknown] magnesium 250 mg tablet 250 mg PO DAILY SUPPLEMENT 10/19/23 [History Last Taken 10/19/23] metoclopramide HCl 5 mg tablet 5 mg PO TID INTESTINES 10/19/23 [History Last Taken 10/19/23] nitroglycerin 0.4 mg sublingual tablet 0.4 mg sublingual Q5M PRN CHEST PAIN 10/19/23 [History Last Taken Unknown] oxycodone 5 mg tablet 5 mg PO Q4H PRN PAIN (PAIN SCORE 6-10) 10/19/23 [History Last Taken 10/16/23] pregabalin 75 mg capsule 75 mg PO Q12H PRN PAIN 10/19/23 [History Last Taken Unknown] sennosides 8.6 mg-docusate sodium 50 mg tablet (Senna Plus) 1 tab-cap PO BID CONSTIPATION 10/19/23 [History Last Taken 10/19/23] tizanidine 2 mg tablet 2 mg PO Q8H PRN MUSCLE SPASMS 10/19/23 [History Last Taken Unknown] Allergy/AdvReac Type Severity Reaction Status Date / Time allopurinol AdvReac Vomiting Verified 10/19/23 14:19 Influenza Virus Vaccines AdvReac Vomiting Verified 10/19/23 14:19 pneumococcal vaccine AdvReac Vomiting Verified 10/19/23 14:19 Family History Mother Diabetes Heart disease CHF Father Heart disease [place]/CAD Myocardial infarction Surgical History H/O lithotripsy History of angioplasty of peripheral vessel (2017) History of angioplasty of peripheral vessel History of ankle surgery History of cardiac catheterization History of coronary artery stent placement (08/2016) History of coronary artery stent placement History of esophagogastroduodenoscopy (EGD) History of left heart catheterization (11/15/17) History of thyroid surgery Hx of lithotripsy Hx of surgery to heart and great vessels, presenting hazards to health Hx of surgical procedure Hx of thyroidectomy Hx of toe surgery Hx of toe surgery PEG (percutaneous endoscopic gastrostomy) status Social History household members: spouse housing: apartment Smoking Status: Never smoker alcohol intake: never substance use type: does not use ROS <SUJATHA Silva - Last Filed: 10/19/23 17:02> ROS ED ROS Narrative Constitutional: Negative for fever, chills, malaise. GI: Negative for nausea, vomiting. Neuro: Negative for motor dysfunction. Skin: Positive for wound. Musc: Negative for joint pain, swelling, trauma. EXAM <SUJATHA Silva - Last Filed: 10/19/23 17:02> Physical Exam Narrative Exam Narrative: CONST: Patient sitting in no acute distress. EYES: Normal inspection. NECK: Normal inspection. RESP: No respiratory distress, CTAB. CVS: Regular rate and rhythm, no murmur, no gallop. SKIN: 3 x 3 cm ulcer on left heel, deep with yellow granulation tissue. No fluctuance or drainage, no visible bone, no surrounding cellulitis. Feet are appropriately warm but there is no palpable pulse, biphasic DP pulse present with Doppler although sometimes erratic. NEURO: Oriented x4. PSYCH: Normal affect. Const Vital Signs: 10/19/23 14:19 10/19/23 16:18 Temperature 97.9 F 98.2 F Temperature Source Temporal Oral Pulse Rate 86 89 Respiratory Rate 18 18 Blood Pressure 143/90 H 156/96 H Blood Pressure Mean 107 116 Pulse Ox 99 97 Oxygen Delivery Method Room Air Nasal Cannula Oxygen Flow Rate (L/min) 4 <Dr. Jason Bryan DO - Last Filed: 10/19/23 18:05> Physical Exam Const Vital Signs: 10/19/23 14:19 10/19/23 16:18 Temperature 97.9 F 98.2 F Temperature Source Temporal Oral Pulse Rate 86 89 Respiratory Rate 18 18 Blood Pressure 143/90 H 156/96 H Blood Pressure Mean 107 116 Pulse Ox 99 97 Oxygen Delivery Method Room Air Nasal Cannula Oxygen Flow Rate (L/min) 4 [facility] <SUJATHA Silva - Last Filed: 10/19/23 17:02> [facility] Narrative Medical decision making narrative: History gathered from: Patient, family, Dr. Hess Patient has a nonhealing diabetic ulcer on his left heel that is failed outpatient Cipro. He had an outpatient x-ray showing osteomyelitis and was sent in by Dr. Hess. It grew MRSA and Pseudomonas. He wants him admitted for an MRI, IV antibiotics, and possibly surgery. The wound is about 3 x 3 cm deep with yellow granulation tissue on the heel. There is no fluctuance or crepitus no surrounding cellulitis. Labs, inflammatory markers, blood cultures were ordered and IV vancomycin and Zosyn. White count is 10.8. ESR 22, CRP 8.16, glucose 138. I did not order an x-ray since he had an outpatient x-ray showing osteomyelitis per Dr. Hess. I discussed the case with the hospitalist for admission. Lab Data Attestation: I reviewed the patient's lab results. Labs: Laboratory Results - last 24 hr 10/19/23 15:50 WBC 10.8 RBC 4.75 Hgb 12.5 L Hct 39.9 L MCV 84.0 MCH 26.3 L MCHC 31.3 L RDW Std Deviation 42.9 RDW Coeff of James 14.1 Plt Count 253 MPV 10.4 Immature Gran % (Auto) 0.400 Neut % (Auto) 76.9 H Lymph % (Auto) 12.1 L [place] % (Auto) 8.5 Eos % (Auto) 1.2 Baso % (Auto) 0.9 Absolute Neuts (auto) 8.3 H Absolute Lymphs (auto) 1.31 Nucleated RBC % 0 ESR 22 H Sodium 142 Potassium 3.7 Chloride 104 Carbon Dioxide 32.0 Anion Gap 6 BUN 12 Creatinine 1.18 Estim Creat Clear Calc 65.30 Est GFR (MDRD) Af Amer 80 Est GFR (MDRD) Non-Af 66 BUN/Creatinine Ratio 10.2 Glucose 138 H Calcium 9.2 C-React Prot Ext Range 8.16 H <Dr. Jason Bryan, DO - Last Filed: 10/19/23 18:05> [facility] History & Record Review Discussion w/independent historian: Patient and Family Additional record(s) reviewed:: Prior outpatient record, Prior ED visit and Prior labs Lab Data Attestation: I reviewed the patient's lab results. Labs: Laboratory Results - last 24 hr 10/19/23 15:50 WBC 10.8 RBC 4.75 Hgb 12.5 L Hct 39.9 L MCV 84.0 MCH 26.3 L MCHC 31.3 L RDW Std Deviation 42.9 RDW Coeff of James 14.1 Plt Count 253 MPV 10.4 Immature Gran % (Auto) 0.400 Neut % (Auto) 76.9 H Lymph % (Auto) 12.1 L [place] % (Auto) 8.5 Eos % (Auto) 1.2 Baso % (Auto) 0.9 Absolute Neuts (auto) 8.3 H Absolute Lymphs (auto) 1.31 Nucleated RBC % 0 ESR 22 H Sodium 142 Potassium 3.7 Chloride 104 Carbon Dioxide 32.0 Anion Gap 6 BUN 12 Creatinine 1.18 Estim Creat Clear Calc 65.30 Est GFR (MDRD) Af Amer 80 Est GFR (MDRD) Non-Af 66 BUN/Creatinine Ratio 10.2 Glucose 138 H Calcium 9.2 C-React Prot Ext Range 8.16 H Treatment and Re-Evaluation :: I have personally performed a face to face assessment of the patient and have reviewed the JENNIFER Note. I performed a substantive portion of the visit including all aspects of the following. My hurt findings include: History is diabetic foot with chronic wound. Has been being followed on outpatient basis with podiatry. Found to have osteomyelitis on x-ray. Was sent to emergency department for admission and plan for surgery. No reported fevers. Exam is healed wound on left foot. No exposed bone. No significant cellulitic changes or lymphangitis. Medical Decison Making basic labs were obtained including blood cultures. Was administered Vanco Zosyn. Was seen in the emergency department by podiatry. We will speak with the hospitalist regarding admission. At this point I do not see obvious signs of sepsis/SIRS. Discharge Plan Triage Chief Complaint: Wound Check ED Midlevel Provider: Yuliana Richard ED Provider: Jason Bryan Dx/Rx/DC Orders Clinical Impression: Hx of type 2 diabetes mellitus, Non healing left heel wound, Acute osteomyelitis of left foot Primary Care Provider: Doretha Brown
[2023-10-19] MEDS: Piperacil/Tazobactam 3.375 GM in 0.9% Normal Saline (50mL MB+) 50 ML IV ×2 (15:40→22:36)
[2023-10-19 15:41] VITALS: BMI 36.1
[2023-10-19 16:05] LABS: Absolute Lymphocyte Count 1.31 X10^3/uL (0.83-4.51); Absolute Neutrophil Count 8.3 X10^3/uL (2.0-7.7); Basophil% 0.9 % (0-1); Eosinophil# 0.13 X10^3/uL; Eosinophils% 1.2 % (0-5); Hematocrit 39.9 % (40-54); Hemoglobin 12.5 g/dL (13.0-16.5); Lymphocyte # 1.31 X10^3/ul (0.83-4.51); Lymphocyte % 12.1 % (19-41); Mean Corp Hgb Conc 31.3 g/dL (32-36); Mean Corpuscular Hgb 26.3 pg (27.0-32.0); Mean Platelet Vol. 10.4 fl (6.2-12.0); Monocyte# 0.92 X10^3/uL; Monocyte% 8.5 % (0-10); NRBC Flagged by Analyzer 0 % (0-5); Neutrophil # 8.34 X10^3/uL (2.7-7.7); Neutrophil % 76.9 % (47-70); Platelet Count 253 K/mm3 (150-450); RBC Distribution Width CV 14.1 % (11.6-14.6); RBC Distribution Width SD 42.9 fl (35.1-43.9); Red Blood Count 4.75 M/mm3 (4.6-6.2); White Blood Count 10.8 K/mm3 (4.4-11.0)
[2023-10-19 16:15] LABS: Erythrocyte Sedimentation Rate 22 mm/hr (0-20)
[2023-10-19 16:18] VITALS: BP 156/96; PULSE 89; RESP 18; TEMP 36.8; O2SAT 97
[2023-10-19 16:21] LABS: Anion Gap 6 (5-15); BUN 12 mg/dL (7-18); BUN/Creat Ratio 10.2 RATIO (10-20); CRP 8.16 mg/L (0.0-3.0); Calcium,Total 9.2 mg/dL (8.5-10.1); Chloride 104 mmol/L (98-107); Creatinine, Serum 1.18 mg/dL (0.70-1.30); EST Glomerular Filtration Rate 66 mL/min (>60); Est Glom Filt Rate - Afr Amer 80 mL/min (>60); Glucose 138 mg/dL (74-106); Potassium 3.7 mmol/L (3.5-5.1); Sodium Level 142 mmol/L (136-145)
--- NOTE | 2023-10-19 16:55 | HP.PCM.HOS_ITS ---
HPI - General General Date of Admission: 10/19/23 Date of Service: 10/19/23 Chief Complaint: Left heel wound HPI Narrative REA HANNA, is a 63-year-old male with PMH HTN, DM2, CAD, anxiety, neuropathy, and PAD presented to [facility] [place] 10/19/2023 with nonhealing left heel ulcer for 2 to 3 weeks from the long-term. He has been on oral Cipro and augmentin and had x-ray showing osteo so was sent in by Dr. Hess for admission for surgery. In the ED wound noted on left heel but lab work-up otherwise fairly unremarkable, hospitalist contacted for admission for osteomyelitis with need for surgery. Patient seen with significant other at bedside. Patient very anxious and reports this is typical for him but is more so than usual just because he is at the hospital. He reports occasionally he will have some pain in that foot but denies any other lesions or rashes or pains, denies any chest pain or shortness of breath, has not been eating very well at the long-term as he does not like the food and his urine was little bit darker over the past couple days but no other acute complaints. [facility] Medical History CELESTE (acute kidney injury) Ambulates with cane Amputation of one or more toes Anxiety and depression Arrhythmia Arthritis Aspiration pneumonia Atherosclerotic heart disease of [place] coronary artery without angina pectoris Back pain Back spasm Bilateral leg weakness Blind left eye Blister (nonthermal), left foot, initial encounter Bronchiectasis with (acute) exacerbation Cardiology follow-up encounter Chronic cough Chronic respiratory failure with hypoxia CKD (chronic kidney disease) COPD (chronic obstructive pulmonary disease) Coronary artery disease CPAP (continuous positive airway pressure) dependence Debility, unspecified Decubitus ulcer limited to breakdown of skin (stage 2) Depression Diabetes Essential hypertension Gastric reflux High cholesterol History of aspiration pneumonia History of diabetes mellitus History of echocardiogram History of edema History of gout History of heart attack History of non-ST elevation myocardial infarction (NSTEMI) (08/2016) History of pain when walking History of steroid therapy Hyperglycemia due to type 2 diabetes mellitus Hypertension Insulin dependent diabetes mellitus Irregular heart beat Kidney stones Leg pain, right Leukocytosis Low back pain Memory impairment Migraines Mood disorder Non-smoker Noncompliance by declining intervention or support On home oxygen therapy Peripheral vascular occlusive disease Pneumonia Prostate disease Pulmonary nodule, left Recurrent falls Right ankle pain Right foot pain Shortness of breath on exertion Silent aspiration Sleep apnea Tremor Type 2 diabetes mellitus with diabetic polyneuropathy Ulcer of left foot, limited to breakdown of skin Vision loss of left eye Wears glasses Wound of left lower extremity Home Medications acetaminophen 500 mg tablet 1,000 mg PO Q24H PRN PAIN 02/11/21 [History Last Taken 08/08/23] aspirin 81 mg tablet,delayed release (Adult Aspirin Regimen) 81 mg PO DAILY HEART HEALTH 11/05/21 [History Last Taken 08/09/23] peg [id number] 1 %-0.2 %-0.2 % eye drops (Artificial Tears ([id number])) 2 drp EACH EYE Q1H PRN DRY EYES #0 mL 11/14/21 [Rx Last Taken 06/04/23] gauze bandage 4 X 4 (Bordered Gauze) #14 ea 07/03/22 [Rx Last Taken Unknown] walker (Ultra-Light Rollator [facility] [place]) #1 ea 07/21/22 [Rx Last Taken Unknown] pen needle, diabetic 33 gauge x 5/16 #200 ea 12/02/22 [Rx Last Taken Unknown] fluoxetine 20 mg capsule 20 mg PO DAILY ANXIETY 03/23/23 [History Last Taken 08/09/23] melatonin 3 mg tablet 3 mg PO QHS INSOMNIA 03/23/23 [History Last Taken 08/08/23] amlodipine 2.5 mg tablet 2.5 mg PO DAILY BLOOD PRESSURE 05/25/23 [History Last Taken 08/08/23] atorvastatin 80 mg tablet 80 mg PO QHS CHOLESTEROL 05/25/23 [History Last Taken 08/08/23] buspirone 7.5 mg tablet 7.5 mg PO TID ANXIETY 05/25/23 [History Last Taken 08/09/23] carvedilol 12.5 mg tablet 25 mg PO BID HEART 05/25/23 [History Last Taken 08/09/23] finasteride 5 mg tablet 5 mg PO DAILY PROSTATE 05/25/23 [History Last Taken 08/09/23] fluoxetine 40 mg capsule 40 mg PO DAILY ANXIETY 05/25/23 [History Last Taken 08/09/23] losartan 50 mg tablet 50 mg PO DAILY BLOOD PRESSURE 05/25/23 [History Last Taken 08/09/23] pantoprazole 40 mg tablet,delayed release 40 mg PO DAILY ACID REFLUX 05/25/23 [History Last Taken 08/09/23] trazodone 150 mg tablet 150 mg PO QHS INSOMNIA 05/25/23 [History Last Taken 08/08/23] pregabalin 75 mg capsule 75 mg PO BID pain #10 caps 06/08/23 [Rx Last Taken 08/09/23] insulin glargine-yfgn 100 unit/mL (3 mL) subcutaneous pen 25 unit (0.25 mL) subcut BID diabetes #0 mL 07/15/23 [Rx Last Taken 08/09/23] insulin lispro 100 unit/mL subcutaneous pen (Humalog KwikPen (U-100) Insulin) 15 unit (0.15 mL) subcut TIDAC diabetes #0 mL 07/15/23 [Rx Last Taken 08/09/23] insulin lispro 100 unit/mL subcutaneous pen (Humalog KwikPen (U-100) Insulin) See Protocol subcut ACHS #0 mL 07/15/23 [Rx Last Taken 08/09/23] Wheelchair #1 ea 07/23/23 [Rx Last Taken Unknown] albuterol sulfate 90 mcg/actuation aerosol inhaler 2 puff inhalation Q4H PRN SOB 07/27/23 [History Last Taken Unknown] docusate sodium 100 mg capsule 100 mg PO TID PRN constipation 07/27/23 [History Last Taken Unknown] hydroxyzine HCl 10 mg tablet 10 mg PO TID 07/27/23 [History Last Taken 08/09/23] Lift Chair #1 ea 08/06/23 [Rx Last Taken Unknown] bisacodyl 10 mg rectal suppository 10 mg AR DAILY PRN constipation 08/28/23 [History Last Taken Unknown] isosorbide dinitrate 30 mg tablet 30 mg PO DAILY 08/28/23 [History Last Taken Unknown] multivitamin with minerals (DAILY VITAMIN FORMULA-MINERALS tablet) 1 tab PO DAILY skin health 08/28/23 [History Last Taken 08/28/23] amoxicillin 875 mg-potassium clavulanate 125 mg tablet 1 tab PO BID #10 tabs 09/01/23 [Rx Last Taken Unknown] clopidogrel 75 mg tablet 75 mg PO DAILY BLOOD THINNER #90 tabs 09/15/23 [Rx Last Taken Unknown] flash glucose sensor ([employer] Mago 14 Day Sensor kit) #1 ea 10/01/23 [Rx Last Taken Unknown] Allergy/AdvReac Type Severity Reaction Status Date / Time allopurinol AdvReac Vomiting Verified 10/19/23 14:19 Influenza Virus Vaccines AdvReac Vomiting Verified 10/19/23 14:19 pneumococcal vaccine AdvReac Vomiting Verified 10/19/23 14:19 Family History Mother Diabetes Heart disease CHF Father Heart disease [place]/CAD Myocardial infarction Surgical History H/O lithotripsy History of angioplasty of peripheral vessel (2016) History of angioplasty of peripheral vessel History of ankle surgery History of cardiac catheterization History of coronary artery stent placement (08/2016) History of coronary artery stent placement History of esophagogastroduodenoscopy (EGD) History of left heart catheterization (11/15/17) History of thyroid surgery Hx of lithotripsy Hx of surgery to heart and great vessels, presenting hazards to health Hx of surgical procedure Hx of thyroidectomy Hx of toe surgery Hx of toe surgery PEG (percutaneous endoscopic gastrostomy) status Social History household members: spouse housing: apartment Smoking Status: Never smoker alcohol intake: never substance use type: does not use ROS ROS Narrative General: Occasionally feels hot or cold but no fevers HENT: Denies headache, denies stuffy nose, denies sore throat EYES: Denies changes in vision Resp: Denies cough, denies shortness of breath Cardiac: Denies chest pain GI: Denies abdominal pain, does have some constipation at times, denies nausea/v omiting : Denies changes in urination Extremity: Denies swelling MSK: Denies weakness Neuro: Denies any numbness/tingling Heme: Denies any bleeding or bruising Skin: Ulcer on left heel Psychiatric: Feeling very anxious Vital Signs Vital Signs Vital Signs: 10/19/23 14:19 Temperature 97.9 F Temperature Source Temporal Pulse Rate 86 Respiratory Rate 18 Blood Pressure 143/90 H Blood Pressure Mean 107 Pulse Ox 99 Oxygen Delivery Method Room Air Weight Weight: 114.4 kg Body Mass Index (BMI) 36.1 Physical Exam Narrative General: Alert, oriented, appears anxious HEENT: Atraumatic, normocephalic Eyes: Anicteric, normal conjunctiva, extraocular movements grossly intact Neck: Supple Respiratory: Clear to auscultation bilaterally, normal respiratory effort Cardiovascular: Regular rate GI: Soft, nontender, nondistended Extremities: No edema Musculoskeletal: Moving all extremities Neuro: No overt focal neurological deficits Skin: Has nondraining ulcer in the dependent portion of left heel with no surrounding erythema Psych: Anxious Results Lab / Micro Data 10/19/23 15:50 10/19/23 15:50 Labs: Laboratory Results - last 24 hr 10/19/23 15:50: WBC 10.8, RBC 4.75, Hgb 12.5 L, Hct 39.9 L, MCV 84.0, MCH 26.3 L , MCHC 31.3 L, RDW Std Deviation 42.9, RDW Coeff of James 14.1, Plt Count 253, MPV 10.4, Immature Gran % (Auto) 0.400, Neut % (Auto) 76.9 H, Lymph % (Auto) 12.1 L, [place] % (Auto) 8.5, Eos % (Auto) 1.2, Baso % (Auto) 0.9, Absolute Neuts (auto) 8.3 H, Absolute Lymphs (auto) 1.31, Nucleated RBC % 0, ESR 22 H, Sodium 142, Potassium 3.7, Chloride 104, Carbon Dioxide 32.0, Anion Gap 6, BUN 12, Creatinine 1.18, Estim Creat Clear Calc 65.30, Est GFR (MDRD) Af Amer 80, Est GFR (MDRD) Non-Af 66, BUN/Creatinine Ratio 10.2, Glucose 138 H, Calcium 9.2, C- React Prot Ext Range 8.16 H Assessment & Plan Assessment/Plan (1) Acute osteomyelitis of left foot: (2) Diabetes mellitus: QUALIFIERS: Diabetes mellitus type: type 2 Diabetes mellitus longterm insulin use: with longterm use Diabetes mellitus complication status: with other specified complication Qualified Code(s): E11.69 - Type 2 diabetes mellitus with other specified complication; Z79.4 - care home (current) use of insulin (3) Anxiety and depression: (4) Essential hypertension: (5) GERD (gastroesophageal reflux disease): (6) History of coronary artery stent placement: PLAN: Plan #Non healing ucler of left heel w/ concerns for osteo -per report outpatient x-ray of left heel showed osteo which is why patient was sent to ED by Dr. Hess for MRI and surgery eval -MRI ordered -Bld cx in ED -Podiatry c/s -IV abx -Wound care consult -PT/OT -Continuing aspirin and holding Plavix pending surgery eval and finalization of med list -Pt NPO at midnight in the event he would be added to surgery schedule for tomorrow #CAD s/p stenting/PVD -Continue beta-sarita and aspirin, Plavix yet to be confirmed on home med list -Continue statin #Hypertension -Continue beta-sarita, holding ARB perioperatively #GERD -Continue PPI #Type 2 diabetes mellitus -Glucose checks and sliding scale insulin -Given patient to be n.p.o. we will decrease insulin dosing -A1c in the morning #History of PAD -Continue statin, aspirin -Waiting for med list to be finalized, further decision on Plavix pending surgery eval and med list finalization #Anxiety -Continue hydroxyzine, BuSpar, Plavix, nightly trazodone #DVT ppx: SCDs Lexy Christy MD Charges/Coding Visit Charges Inpatient E&M: 22727 Init Hosp L2
[2023-10-19 16:59] VITALS: BP 162/97; PULSE 90; RESP 12; TEMP 36.7; O2SAT 94
[2023-10-19] MEDS: Vancomycin HCl 1,750 MG in 0.9% Normal Saline (500mL Bag) 500 ML 250 MG IV (17:00)
--- NOTE | 2023-10-19 17:28 | PCM.CONS.GEN ---
Assessment & Plan Assessment/Plan (1) Non-pressure chronic ulcer of other part of left foot with necrosis of bone: PLAN: Exam performed Radiographs from 10/15 and my office demonstrated osteomyelitis to left heel Patient vitally stable White blood cell count 10.8, blood glucose 138, CRP 8.6 Will order MRI to evaluate level of osteomyelitis to left heel Will plan for or debridement of wound, partial calcanectomy, delayed primary closure wound, application of external fixation to left lower extremity on 10/20/2023 Will follow patient closely (2) Acute osteomyelitis of left foot: (3) Type 2 diabetes mellitus with diabetic polyneuropathy: QUALIFIERS: Diabetes mellitus senior living insulin use: with senior living use Qualified Code(s): E11.42 - Type 2 diabetes mellitus with diabetic polyneuropathy; Z79.4 - intermediate card tender (current) use of insulin HPI Consult Data Date of Consult: 10/19/23 HPI Narrative HPI Narrative: REA HANNA, is a 63 M who presents new onset left heel ulceration. Patient residing in nursing facility. Patient presented to my office with a necrotic ulceration down to level of bone. Radiographs were taken at that time confirmed osseous erosions to the plantar calcaneus. Patient denies constitutional symptoms. Patient denies pain. Patient long-term diabetic with peripheral arterial disease high risk for limb loss. [facility] Medical History CELESTE (acute kidney injury) Ambulates with cane Amputation of one or more toes Anxiety and depression Arrhythmia Arthritis Aspiration pneumonia Atherosclerotic heart disease of w[place]ot coronary artery without angina pectoris Back pain Back spasm Bilateral leg weakness Blind left eye Blister (nonthermal), left foot, initial encounter Bronchiectasis with (acute) exacerbation Cardiology follow-up encounter Chronic cough Chronic respiratory failure with hypoxia CKD (chronic kidney disease) COPD (chronic obstructive pulmonary disease) Coronary artery disease CPAP (continuous positive airway pressure) dependence Debility, unspecified Decubitus ulcer limited to breakdown of skin (stage 2) Depression Diabetes Essential hypertension Gastric reflux High cholesterol History of aspiration pneumonia History of diabetes mellitus History of echocardiogram History of edema History of gout History of heart attack History of non-ST elevation myocardial infarction (NSTEMI) (08/2016) History of pain when walking History of steroid therapy Hyperglycemia due to type 2 diabetes mellitus Hypertension Insulin dependent diabetes mellitus Irregular heart beat Kidney stones Leg pain, right Leukocytosis Low back pain Memory impairment Migraines Mood disorder Non-smoker Noncompliance by declining intervention or support On home oxygen therapy Peripheral vascular occlusive disease Pneumonia Prostate disease Pulmonary nodule, left Recurrent falls Respiratory failure with hypoxia Right ankle pain Right foot pain Shortness of breath on exertion Silent aspiration Sleep apnea Tremor Type 2 diabetes mellitus with diabetic polyneuropathy Ulcer of left foot, limited to breakdown of skin Vision loss of left eye Wears glasses Wound of left lower extremity Home Medications acetaminophen 500 mg tablet 1,000 mg PO Q24H PRN PAIN 02/11/21 [History Last Taken 08/08/23] aspirin 81 mg tablet,delayed release (Adult Aspirin Regimen) 81 mg PO DAILY HEART HEALTH 11/05/21 [History Last Taken 08/09/23] peg [id number] 1 %-0.2 %-0.2 % eye drops (Artificial Tears ([id number])) 2 drp EACH EYE Q1H PRN DRY EYES #0 mL 11/14/21 [Rx Last Taken 06/04/23] gauze bandage 4 X 4 (Bordered Gauze) #14 ea 07/03/22 [Rx Last Taken Unknown] walker (Ultra-Light Rollator misc) #1 ea 07/21/22 [Rx Last Taken Unknown] pen needle, diabetic 33 gauge x 5/16 #200 ea 12/02/22 [Rx Last Taken Unknown] fluoxetine 20 mg capsule 20 mg PO DAILY ANXIETY 03/23/23 [History Last Taken 08/09/23] melatonin 3 mg tablet 3 mg PO QHS INSOMNIA 03/23/23 [History Last Taken 08/08/23] amlodipine 2.5 mg tablet 2.5 mg PO DAILY BLOOD PRESSURE 05/25/23 [History Last Taken 08/08/23] atorvastatin 80 mg tablet 80 mg PO QHS CHOLESTEROL 05/25/23 [History Last Taken 08/08/23] buspirone 7.5 mg tablet 7.5 mg PO TID ANXIETY 05/25/23 [History Last Taken 08/09/23] carvedilol 12.5 mg tablet 25 mg PO BID HEART 05/25/23 [History Last Taken 08/09/23] finasteride 5 mg tablet 5 mg PO DAILY PROSTATE 05/25/23 [History Last Taken 08/09/23] fluoxetine 40 mg capsule 40 mg PO DAILY ANXIETY 05/25/23 [History Last Taken 08/09/23] losartan 50 mg tablet 50 mg PO DAILY BLOOD PRESSURE 05/25/23 [History Last Taken 08/09/23] pantoprazole 40 mg tablet,delayed release 40 mg PO DAILY ACID REFLUX 05/25/23 [History Last Taken 08/09/23] trazodone 150 mg tablet 150 mg PO QHS INSOMNIA 05/25/23 [History Last Taken 08/08/23] pregabalin 75 mg capsule 75 mg PO BID pain #10 caps 06/08/23 [Rx Last Taken 08/09/23] insulin glargine-yfgn 100 unit/mL (3 mL) subcutaneous pen 25 unit (0.25 mL) subcut BID diabetes #0 mL 07/15/23 [Rx Last Taken 08/09/23] insulin lispro 100 unit/mL subcutaneous pen (Humalog KwikPen (U-100) Insulin) 15 unit (0.15 mL) subcut TIDAC diabetes #0 mL 07/15/23 [Rx Last Taken 08/09/23] insulin lispro 100 unit/mL subcutaneous pen (Humalog KwikPen (U-100) Insulin) See Protocol subcut ACHS #0 mL 07/15/23 [Rx Last Taken 08/09/23] Wheelchair #1 ea 07/23/23 [Rx Last Taken Unknown] albuterol sulfate 90 mcg/actuation aerosol inhaler 2 puff inhalation Q4H PRN SOB 07/27/23 [History Last Taken Unknown] docusate sodium 100 mg capsule 100 mg PO TID PRN constipation 07/27/23 [History Last Taken Unknown] hydroxyzine HCl 10 mg tablet 10 mg PO TID 07/27/23 [History Last Taken 08/09/23] Lift Chair #1 ea 08/06/23 [Rx Last Taken Unknown] bisacodyl 10 mg rectal suppository 10 mg MS DAILY PRN constipation 08/28/23 [History Last Taken Unknown] isosorbide dinitrate 30 mg tablet 30 mg PO DAILY 08/28/23 [History Last Taken Unknown] multivitamin with minerals (DAILY VITAMIN FORMULA-MINERALS tablet) 1 tab PO DAILY skin health 08/28/23 [History Last Taken 08/28/23] amoxicillin 875 mg-potassium clavulanate 125 mg tablet 1 tab PO BID #10 tabs 09/01/23 [Rx Last Taken Unknown] clopidogrel 75 mg tablet 75 mg PO DAILY BLOOD THINNER #90 tabs 09/15/23 [Rx Last Taken Unknown] flash glucose sensor (FreeStyle Mago 14 Day Sensor kit) #1 ea 10/01/23 [Rx Last Taken Unknown] Allergy/AdvReac Type Severity Reaction Status Date / Time allopurinol AdvReac Vomiting Verified 10/19/23 14:19 Influenza Virus Vaccines AdvReac Vomiting Verified 10/19/23 14:19 pneumococcal vaccine AdvReac Vomiting Verified 10/19/23 14:19 Family History Mother Diabetes Heart disease CHF Father Heart disease UT/CAD Myocardial infarction Surgical History H/O lithotripsy History of angioplasty of peripheral vessel (2016) History of angioplasty of peripheral vessel History of ankle surgery History of cardiac catheterization History of coronary artery stent placement (08/2016) History of coronary artery stent placement History of esophagogastroduodenoscopy (EGD) History of left heart catheterization (11/15/17) History of thyroid surgery Hx of lithotripsy Hx of surgery to heart and great vessels, presenting hazards to health Hx of surgical procedure Hx of thyroidectomy Hx of toe surgery Hx of toe surgery PEG (percutaneous endoscopic gastrostomy) status Social History household members: spouse housing: apartment Smoking Status: Never smoker alcohol intake: never substance use type: does not use Physical Exam Narrative Vascular: Pitting edema noted to left lower extremity. Dorsalis pedis posterior tibial pulses diminished bilateral lower extremity. Focal increase in warmth left lower extremity. Neurologic: Light touch and protective sensation absent to bilateral feet. Dermatologic: Fibronecrotic wound down to level calcaneal bone left plantar heel. Mild purulent drainage periwound erythema edema and malodor noted. Musculoskeletal: No gross deformities contributing to wound formation. No sign DVT. No evidence of crepitus or fluctuance at this time. Const alert and oriented x3 Lab / Micro Data 10/19/23 15:50 10/19/23 15:50 Labs: Laboratory Results - last 24 hr 10/19/23 15:50: WBC 10.8, RBC 4.75, Hgb 12.5 L, Hct 39.9 L, MCV 84.0, MCH 26.3 L, MCHC 31.3 L, RDW Std Deviation 42.9, RDW Coeff of James 14.1, Plt Count 253, MPV 10.4, Immature Gran % (Auto) 0.400, Neut % (Auto) 76.9 H, Lymph % (Auto) 12.1 L, Denali % (Auto) 8.5, Eos % (Auto) 1.2, Baso % (Auto) 0.9, Absolute Neuts (auto) 8.3 H, Absolute Lymphs (auto) 1.31, Nucleated RBC % 0, ESR 22 H, Sodium 142, Potassium 3.7, Chloride 104, Carbon Dioxide 32.0, Anion Gap 6, BUN 12, Creatinine 1.18, Estim Creat Clear Calc 65.30, Est GFR (MDRD) Af Amer 80, Est GFR (MDRD) Non-Af 66, BUN/Creatinine Ratio 10.2, Glucose 138 H, Calcium 9.2, C-React Prot Ext Range 8.16 H
--- NOTE | 2023-10-19 17:36 | MRI_ITS ---
STUDY: MRI LEFT ANKLE WITHOUT CONTRAST REASON FOR EXAM: Male, 63 years old. Left osteomyelitis calcaneous/ hindfoot , TECHNIQUE: Standardized fat and water weighted pulse sequences were obtained in all 3 orthogonal planes. There is motion artifact. COMPARISON: December 17, 2022 FINDINGS: There is posterior inferior soft tissue swelling with skin thickening and subcutaneous edema. There is separate artifact associated with postoperative change with metallic densities in the medial malleolus of the distal tibia. There is marrow edema of the posterior inferior calcaneus consistent with osteomyelitis, series 6 images 11 through 15. Normal posterior tibialis tendon. Normal flexor digitorum longus tendon. Normal flexor hallucis longus tendon. Normal peroneus longus and brevis tendons. Normal tibialis anterior tendon. Normal extensor hallucis longus tendon. Normal extensor digitorum longus tendons. Normal Achilles tendon and teno-osseous insertion. Normal plantar fascia. Normal plantar calcaneal tubercles. Normal intrinsic muscles of the rearfoot. Normal distal tibiofibular syndesmotic ligamentous complex. Normal lateral ligamentous complex. Normal subtalar ligaments and sinus tarsi. Normal deltoid ligamentous complexes. Normal plantar calcaneonavicular (spring) ligament. There is mild degenerative change of the tibiotalar articulation. Normal talar dome. Normal subtalar articulations. Normal talonavicular articulation. Normal calcaneocuboid articulation. Normal navicular-cuneiform articulations. MRI/Lower Ext Joint Only (Routine) IMPRESSION: Osteomyelitis of the calcaneus. Electronically Signed: Bryan Tam MD at 22:58 EST ,
--- NOTE | 2023-10-19 20:44 | PHA.PHARE_ITS ---
Consult Antibiotic Management Pharmacy has been consulted to manage selected antiobiotic: Vancomycin Type of Intervention Type of Consult: New start Suspected Infection Suspected Infection: Osteomyelitis Prior Doses of Antibiotics Prior Doses of Antibiotics Received/Current Regimen: RECEIVED VANC 1750MG IV X1 IN E.R. STARTING AT 17:00 TODAY Labs Labs: Sodium 142 mmol/L (136-145) 10/19/23 15:50 Potassium 3.7 mmol/L (3.5-5.1) 10/19/23 15:50 Chloride 104 mmol/L (98-107) 10/19/23 15:50 Carbon Dioxide 32.0 mmol/L (21.0-32.0) 10/19/23 15:50 Anion Gap 6 (5-15) 10/19/23 15:50 BUN 12 mg/dL (7-18) 10/19/23 15:50 Creatinine 1.18 mg/dL (0.70-1.30) 10/19/23 15:50 Est GFR (MDRD) Af Amer 80 mL/min (>60) 10/19/23 15:50 Est GFR (MDRD) Non-Af 66 mL/min (>60) 10/19/23 15:50 BUN/Creatinine Ratio 10.2 RATIO (10-20) 10/19/23 15:50 Glucose 138 mg/dL (74-106) H 10/19/23 15:50 Dosing Weight Weight used for dosin.4 kg Estimated Creatinine Clearance Estimated Creatinine Clearance: 80.2ML/MIN Goal Trough Goal Trough: 15-20 mcg/mL Pharmacy Plan for Drug Dosing Pharmacy Plan for Drug Dosing: Per [facility] dosing protocol, continue with vanc 2000mg IV q12h. Will check a trough before the 4th total dose. The patient's CrCl of 80.2 ml/min was calculated using an adjusted body weight. Pharmacy Service will continue to monitor and adjust dosing as required. Follow-Up Labs Follow-Up Labs: Trough: Vancomycin Date/Time Labs Ordered Labs to be done on [date and time ordered]: 10/21/23 03:30
[2023-10-19 20:46] VITALS: BMI 35.8
[2023-10-19 20:52] VITALS: BP 153/100; PULSE 87; RESP 18; TEMP 36.6; O2SAT 100
[2023-10-19] MEDS: 0.9% Saline Lock 10 ML Syringe IV (22:24)
[2023-10-19] MEDS: traZODone 50 MG Tablet 150 MG PO (22:41)
[2023-10-19] MEDS: Pregabalin 75 MG Capsule PO (22:43)
[2023-10-19] MEDS: Atorvastatin Calcium 80 MG Tablet PO (22:43)
[2023-10-19] MEDS: Acetaminophen 325 MG Tablet 650 MG PO (22:44)
[2023-10-19] MEDS: oxyCODONE 5 MG Tablet PO (22:45)
[2023-10-19] MEDS: amLODIPine 10 MG Tablet PO (22:49)
[2023-10-19 23:23] LABS: Bedside Glucose 71 mg/dL (74-106)
[2023-10-20] VITALS (12 sets, daily range): BP systolic 127–166; BP diastolic 70–99; PULSE 69–78; RESP 16–18; TEMP 36.3–37.1; O2SAT 93–100; BMI 35.8
[2023-10-20 00:47] LABS: Bedside Glucose 98 mg/dL (74-106)
[2023-10-20] MEDS: Vancomycin HCl 2,000 MG in 0.9% Normal Saline (500mL Bag) 500 ML 250 MG IV ×2 (04:42→16:27)
[2023-10-20] MEDS: 0.9% Normal Saline (250mL Bag) 250 ML 15 ML IV (04:48)
[2023-10-20] MEDS: Piperacil/Tazobactam 3.375 GM in 0.9% Normal Saline (50mL MB+) 50 ML IV ×3 (05:04→20:25)
[2023-10-20 06:30] LABS: Absolute Lymphocyte Count 2.32 X10^3/uL (0.83-4.51); Absolute Neutrophil Count 5.7 X10^3/uL (2.0-7.7); Basophil# 0.09 X10^3/uL; Basophil% 0.9 % (0-1); Eosinophil# 0.49 X10^3/uL; Eosinophils% 5.1 % (0-5); Hematocrit 36.9 % (40-54); Hemoglobin 11.7 g/dL (13.0-16.5); Lymphocyte # 2.32 X10^3/ul (0.83-4.51); Lymphocyte % 24.1 % (19-41); Mean Corp Hgb Conc 31.7 g/dL (32-36); Mean Platelet Vol. 10.1 fl (6.2-12.0); Monocyte# 1.04 X10^3/uL; Monocyte% 10.8 % (0-10); NRBC Flagged by Analyzer 0 % (0-5); Neutrophil # 5.68 X10^3/uL (2.7-7.7); Neutrophil % 58.9 % (47-70); Platelet Count 220 K/mm3 (150-450); RBC Distribution Width CV 13.9 % (11.6-14.6); RBC Distribution Width SD 43.5 fl (35.1-43.9); Red Blood Count 4.34 M/mm3 (4.6-6.2); White Blood Count 9.6 K/mm3 (4.4-11.0)
[2023-10-20 06:43] LABS: Bedside Glucose 121 mg/dL (74-106)
[2023-10-20 07:01] LABS: Anion Gap 2 (5-15); BUN 11 mg/dL (7-18); BUN/Creat Ratio 11.5 RATIO (10-20); Calcium,Total 8.9 mg/dL (8.5-10.1); Chloride 108 mmol/L (98-107); Creatinine, Serum 0.96 mg/dL (0.70-1.30); EST Glomerular Filtration Rate 84 mL/min (>60); Est Glom Filt Rate - Afr Amer 101 mL/min (>60); Estimated Creatinine Clearance 80.27 ml/min; Glucose 119 mg/dL (74-106); Potassium 3.4 mmol/L (3.5-5.1); Sodium Level 141 mmol/L (136-145)
--- NOTE | 2023-10-20 08:00 | SOF_PTH ---
PATIENT: REA HANNA LOC: [facility] U#:[id number] AGE/SX: 63/M ROOM: [id number] RE10/19/[address]: Dr. Nona Salcedo MD : 1960 BED: 1 DIS: 10/26/2023 SPEC #: [id number] RECD: 10/20/23 15:37 STATUS: MOISÉS REQ #: [id number] MARJORIE: 10/20/23 08:[address]: Jason Hess DEPT: SURGICAL PATHOLOGY RECD BY: Gila Deutsch ENTERED: 10/22/23 14:33 SP TYPE: SOFT TISS OTHR DR: Dr. Jason Hess, DPM MD Dr. Doretha Wiley MD Dr. Mark Tereletsky, DO Dr. Paige Pierce, MD Dr. Robert Leininger, MD Tissues: A - Soft tissues, NOS B - Bone of foot, NOS Procedures: Decalcification bone/plaque Surgery Specimen Level IV Comments: @ Ordering doctor for DEC edited from to @ by BAIRON at 10/22/23 152 @ Ordering doctor for SUIII edited from to @ by BAIRON at 10/22/23 1522 @ Submitting doctor edited from to DR.DBULLA Vidal by BAIRON at 10/22/23 1522 HEADER OPERATION: Left heel wound debridement partial calcanectomy PRE-OP DIAGNOSIS: Osteomyelitis left calcaneus TISSUE SUBMITTED: A - Soft tissue left heel, B - Bone left heel MICROSCOPIC DIAGNOSIS A. Soft tissue of left heel, excision: Ulceration with associated acute and chronic inflammation, fibrinopurulent material and fat necrosis. B. Bone of left heel, excision: Reparative and reactive change. No evidence of osteomyelitis. AM:guillermo 10/27/2023 MICROSCOPIC DESCRIPTION Slides are reviewed. GROSS DESCRIPTION A - Received in fixative is one container labeled with the patient's name and designated soft tissue left heel. The specimen consists of an irregular fragment of light keenan soft tissue measuring 6.0 x 1.0 x 0.5 cm. Passenger Tire Inspector sections are submitted in one cassette. B - Received in fixative is one container labeled with the patient's name and designated bone left heel. The specimen consists of multiple irregular fragments of light to dark keenan bony tissue that in aggregate measure 4.0 x 4.0 x 1.0 cm. Passenger Tire Inspector sections are submitted in one cassette after decalcification. / AM:guillermo 10/22/2023 TC:5 CPT: 34575 x2, 31765
[2023-10-20 08:07] LABS: Hemoglobin A1c 6.9 % (3.8-5.6)
--- NOTE | 2023-10-20 08:07 | RAD_ITS ---
STUDY: X-RAY CHEST REASON FOR EXAM: Male, 63 years old. Surgical clearance. TECHNIQUE: Frontal and lateral views of the chest. COMPARISON: September 03, 2023. FINDINGS: Cardiomegaly with aortic tortuosity and calcification unchanged. Decrease in bibasilar atelectasis and bibasilar opacities with minimal atelectasis in the right middle and lower lobes and elevation of the right hemidiaphragm, unchanged. Diffuse thoracic spondylosis unchanged No abnormality of the visualized soft tissue structures of the upper abdomen. RAD/Chest PA and Lateral IMPRESSION: Slight radiographic improvement. Elevation of the right hemidiaphragm with right basilar atelectasis. No acute or emergent finding. Electronically Signed: Simeon Covarrubias MD at 10:26 EST ,
--- NOTE | 2023-10-20 08:07 | WOUNDNOTE ---
wound photo: left heel
[2023-10-20] MEDS: Isosorbide Mononitrate 30 MG Tablet PO (08:29)
[2023-10-20] MEDS: Pantoprazole Sodium 40 MG Tablet PO (08:29)
[2023-10-20] MEDS: amLODIPine 10 MG Tablet PO ×2 (08:32→22:04)
--- NOTE | 2023-10-20 11:03 | NURSING ---
pt to surgery
[2023-10-20] MEDS: Lactated Ringers 1,000 ML 15 ML IV (11:18)
--- NOTE | 2023-10-20 12:40 | RAD_ITS ---
STUDY: X-RAY - LEFT FOOT CLINICAL: Male, 63 years old. Intraoperative digital documentation images. TECHNIQUE: 8 intraoperative digital view(s) of the foot. COMPARISON: MRI of the left foot dated October 19, 2023. FINDINGS: 8 intraoperative digital documentation views were performed. RAD/Foot 2 Views IMPRESSION: Intraoperative digital documentation views. Electronically Signed: Simeon Covarrubias MD at 13:09 EST ,
--- NOTE | 2023-10-20 14:15 | PCM.OPRPT ---
Problems Associated Problem List Diagnoses (1) Acute osteomyelitis of left foot: (2) Non-pressure chronic ulcer of other part of left foot with necrosis of bone: (3) Hx of type 2 diabetes mellitus: (4) Left ankle instability: Report of Operation Date of Procedure: 10/20/23 Pre-Operative Diagnosis: 1) Left Calcaneal Osteomyelitis 2) Left Heel Wound With Bone Necrosis 3) Diabetic Neuropathy 4) Left Ankle instability Post-Operative Diagnosis: same Surgery/Procedure Performed:: 1) Partial excision of calcaneal bone in setting of osteomyelitis 2) Delayed primary closure of wound using adjacent tissue transfer 3) Application of Delta Frame External Fixator for Multiplane Stability Description of Surgical Findings:: Patient admitted for radiographic changes in setting of left chronic plantar calcaneal wound ulceration. Demonstrated calcaneal bone erosion. Patient sent to emergency room for hospital admission. Patient had no elevated white count vital signs are stable. MRI was ordered to confirm osteomyelitis to the plantar calcaneal tuberosity. Decision was made after discussion with the family to proceed with removal of infected bone via marked partial calcanectomy with delayed primary closure via adjacent tissue transfer and application of delta frame for multi plane stability and to offload the heel wound and protect Achilles tendon from rupture due to instability. This is an attempt to prevent any limb loss associated with an acute diabetic infection. Patient understands that this is a salvage procedure and wished to proceed. Surgeon: Jason Hess regional company hazmat tanker driver: None regional company hazmat tanker driver: Melanie Delcid Type of Anesthesia: General Specimen's removed: Left calcaneal bone for microbiology and pathology, left heel wound for tissue culture, post lavage swab cultures left heel Drains: None Estimated Blood Loss (mL): 100 cc Description of Procedure: Patient brought back the operating placed complete in supine position operating room table. Heel was offloaded so access could be made to the area. Patient induced under general anesthesia. Well-padded left thigh tourniquet was applied. Left lower extremity was positioned with the heel hanging off the bed to allow for access for the posterior heel wound as well as hip bump placed under the left hip to knock out any external rotation. Left lower extremity was then scrubbed prepped and draped using typical aseptic fashion. Partial excision calcaneal bone left heel, procedure #1 (61217): Left lower exam extremity was elevated exsanguinated tourniquet was inflated to 300 mmHg. Throughout the case there is noted to be some bleeding consistently due to calcification patient's vascular structures. Calcaneal wound was excised in its entirety down to the level of calcaneal bone using pickups and #15 blade. Any bleeders cauterized in the process. Plantar calcaneus was then examined using a sagittal saw set was excised. It was excised in a manner to clear all infected bone. The remaining bone appeared healthy. It was also excised in a manner to maintain a healthy weightbearing surface without any osseous prominence that may contribute to wound recurrence. Excision was confirmed using fluoroscopic imaging as well as intraoperative visualization. Calcaneal bone was passed the back table and split and sent to pathology and microbiology for further examination. Creation of flap to allow for adjacent tissue transfer and delayed primary closure, procedure #2 (05571): A HurriCaine flap was made with a serpiginous superior arm traversing in the lateral direction with an inferior arm serpiginous in nature traversing in the medial direction to allow for adequate apposition of tissue this incision was made full-thickness with #15 blade and the medial and lateral aspects of both sides of the flap were then undermined and mobilized for to allow for adequate closure of the posterior heel wound. Once this was performed the areas were then approximated and partially closed using vessel loop closure using the maxi Vesseloops and a stapler allowing for an accordion like tension-free closure across the wound site. There is noted to be a small residual wound to the posterior calcaneus that are approximately 1 x 1.5 cm x 2 point centimeters in depth. Simple interrupted's were used to approximate the plantar incisional on as well as the superior incisional line. The posterior wound was left open and will have to heal through tertiary healing. At this time BioSkin was applied into the wound bed to assist healing nature of the wound promote granular base to accelerate wound healing in this patient with diabetes, peripheral arterial disease, end-stage renal disease. Application of multiplanar external fixator left lower extremity, procedure #3 ([id number]): Delta frame was applied using 2 tibial quarter pins 1 calcaneal transfixion pin as well as 1 first metatarsal quarter pin to allow for final sagittal and axial plane alignment of the foot in a rectus nature. A heel kickstand was applied to the external fixator to prevent any excess heel pressure allow for accelerated wound healing to this patient's left heel. Pin placements were confirmed intraoperatively and with fluoroscopic imaging. Everything was tightened appropriately. Posterior heel wound was packed with Surgicel and dressing to prevent prevent any excessive bleeding in the postoperative state. Pin sites dressed with Betadine Adaptic posterior heel wound incisional site dressed with Betadine Adaptic all sites were dressed with 4 x 4's ABD pads Kerlix and a well-padded Martin compression dressing. Tourniquet was let down. Total tourniquet time was noted be 89 minutes. Patient was transferred to PACU vital signs stable vascular status intact all digits for further monitoring prior to transfer back to the floor. Patient tolerated procedure and anesthesia well apparent satisfactory condition. Will plan to change dressing tomorrow. Patient will likely discharge to SNF allow for offloading of heel wound and eventual healing. Patient will need to offload his right heel when at rest to prevent any pressure injury to this site as well. Grafts/Implants Used: Chepe Toscano delta frame Complications Minor bleeding intraoperatively, 100 cc blood loss Admit VTE Documentation VTE Present on Admission: Yes VTE Pharm Prophylaxis ordered?: Yes
--- NOTE | 2023-10-20 15:00 | CASEMGMT ---
Social Work - Initial Note This marketing underwriter noted SDOH trigger for this patient, as well as learned that patient is from [facility]. Went to patient's room to check on return to facility, as well as discuss SDOH trigger, but patient not in room. [place] from nursing patient is in surgery. Plan: Will attempt to see patient again later today if time allows. Anticipate return to SNF, and noted that patient's insurance will likely require precertification. Social work to follow. -ESTHER Solorzano
[2023-10-20 15:11] LABS: Bedside Glucose 115 mg/dL (74-106)
--- NOTE | 2023-10-20 15:12 | CHAPLAIN ---
Type of Pastoral Visit ___ Initial Visit ___ Follow-up Visit ___ On-call Visit ___ General Patient Visit ___ Spiritual Assessment ___ Family Conference ___ Bereavement ___ Rapid Response ___ Code Blue ___ Other (describe below) Pastoral Care Referral From ___ Patient ___ Family ___ Nurse ___ Physician ___ Fabric Designer ___ Credit Risk Officer ___ Other (describe below) Sacrament/Intervention ___ Active listening ___ Anointing ___ Adventism ___ Bereavement ___ Communion ___ Sarai exploration ___ ___ Life review ___ Prayer ___ Reconciliation ___ Sacrament of Sick ___ Supportive presence ___ Wedding ___ Other (describe below) Pastoral Comments patient and bed were out of the room; left a calling card
[2023-10-20 16:39] LABS: Bedside Glucose 148 mg/dL (74-106)
--- NOTE | 2023-10-20 19:22 | PN.HOSP_ITS ---
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 Patient went to surgery today and a partial excision of the calcaneal bone was carried out on the left calcaneus with delayed primary closure of the wound using adjacent tissue transfer. A delta frame external fixator was also applied for multiplane stability. Objective Data Objective Data Vital Signs: Vital Signs Temp Pulse Resp BP Pulse Ox O2 Del Method O2 Flow Rate 98.4 F 77 16 154/80 H 98 Nasal Cannula 3 10/20/23 17:35 10/20/23 17:35 10/20/23 17:35 10/20/23 17:35 10/20/23 17:35 10/20/23 17:35 10/20/23 17:35 Oxygen Flow Rate (L/min) 3 Oxygen Delivery Method Nasal Cannula Weight: 113.2 kg Body Mass Index (BMI) 35.8 Intake & Output: Intake and Output for Last 24 Hours 10/18/23 10/19/23 10/20/23 23:59 23:59 23:59 Intake Total 785 / 785 2280 / 2280 Output Total 200 / 200 Balance 785 / 785 0 / 0 Medical Nutrition Assessment Dietitian: Malnutrition Criteria Met Start: 10/20/23 09: 35 Freq: Status: Active Protocol: Document 11/22/23 09:35 (Rec: 10/20/23 09:35 [id number]) Nutrition Malnutrition Evidence of Malnutrition Exists Yes Malnutrition (severe): Acute Illness/Injury Evidenced By Suboptimal Energy Intake ( Severe),Weight Loss (Severe) Clinical Problem Acute Disease or Injury Related Malnutrition Etiology severe, acute malnutrition related to inadequate energy intake w/ dislike of SNF food Signs/Symptoms as evidenced by unintentional 14.3kg/11% wt loss, estimated PO intake meeting <75% of estimated energy needs > 1 month Status Active Problem Recommendation Dietitian Recommendations/Changes recommend advance diet as tolerated to Carbohydrate Controlled; continue Glucerna 120mL 4x/day given evidence of malnutrition. Will add Aubrey BID for wounds. Lab / Micro Data 10/20/23 06:19 10/20/23 06:19 Labs: Laboratory Results - last 24 hr 10/19/23 22:23: POC Glucose 71 L 10/19/23 23:07: POC Glucose 98 10/20/23 05:40: POC Glucose 121 H 10/20/23 06:19: WBC 9.6, RBC 4.34 L, Hgb 11.7 L, Hct 36.9 L, MCV 85.0, MCH 27.0, MCHC 31.7 L, RDW Std Deviation 43.5, RDW Coeff of James 13.9, Plt Count 220, MPV 10.1, Immature Gran % (Auto) 0.200, Neut % (Auto) 58.9, Lymph % (Auto) 24.1, Dewey % (Auto) 10.8 H, Eos % (Auto) 5.1 H, Baso % (Auto) 0.9, Absolute Neuts (auto) 5.7, Absolute Lymphs (auto) 2.32, Nucleated RBC % 0, Sodium 141, Potassium 3.4 L, Chloride 108 H, Carbon Dioxide 31.0, Anion Gap 2 L, BUN 11, Creatinine 0.96, Estim Creat Clear Calc 80.27, Est GFR (MDRD) Af Amer 101, Est GFR (MDRD) Non-Af 84, BUN/Creatinine Ratio 11.5, Glucose 119 H, Hemoglobin A1c 6.9 H, Calcium 8.9 10/20/23 14:18: POC Glucose 115 H 10/20/23 16:20: POC Glucose 148 H Micro: Microbiology 10/20/23 Unknown Bone - Other Gram Stain - Final 10/20/23 Unknown Tissue - Other Gram Stain - Final 10/20/23 Unknown Wound - Left Foot Gram Stain - Final Radiography Diagnostic Testing: Radiology Impression Lower Extremity MRI 10/19/23 17:36 IMPRESSION: Osteomyelitis of the calcaneus. Electronically Signed: Bryan Tam MD at 22:58 EST , Chest X-Ray 10/20/23 08:07 IMPRESSION: Slight radiographic improvement. Elevation of the right hemidiaphragm with right basilar atelectasis. No acute or emergent finding. Electronically Signed: Simeon Covarrubias MD at 10:26 EST , Physical Exam Const alert and no apparent distress General Appearance: cooperative and well developed Orientation / Consciousness: awake, oriented to person and oriented to place HEENT normocephalic, head/scalp atraumatic and moist oral mucous membranes Eyes PERRL, EOMs intact bilaterally and conjunctivae normal Neck supple, no JVD, thyroid normal and no carotid bruits General: trachea midline Resp normal respiratory effort, no retractions, no use of accessory muscles and clear to auscultation bilaterally Auscultation: Negative for rales, rhonchi or wheezes Cardio regular rate, regular rhythm, S1 normal heart sound, S2 normal heart sound, no murmurs, no rub and no gallops GI normal to inspection, nondistended, normoactive bowel sounds, soft to palpation, non-tender and non-distended Extremity Extremity Narrative: Patient's left foot was wrapped with surgical dressing Neuro CN's II-XII intact bilaterally, moves all extremities, no focal motor deficits and no sensory deficits noted Sensorium / Orientation: awake, alert, oriented to person and oriented to place Speech: speech normal Psych Psych Narrative: Patient is somewhat argumentative and confrontational during my exam Assessment & Plan Assessment/Plan (1) Acute osteomyelitis of left foot: PLAN: Plan 1. Osteomyelitis of the left calcaneus-status post partial excision of the calcaneal bone with application of delta frame external fixator 10/20/2023-PT and OT will see the patient, podiatry will participate in his care, infectious diseases will be consulted and will see the patient this Wednesday, patient will remain on his current antibiotic coverage, cultures will be reviewed. #2 type 2 diabetes-patient is on sliding scale insulin per fingerstick blood s ugars, patient is also on basal insulin #3 chronic depression/anxiety-patient is on Prozac #4 hyperlipidemia-patient is on atorvastatin #5 coronary artery disease-stable at this time #6 diabetic neuropathy-complicates care, medical course, recovery, and prognosis Total clinical time spent by myself addressing the patient's medical issues, reviewing all of his data, and collaborating with patient's care team: 35 minutes Charges/Coding Visit Charges Inpatient E&M: 73430 Subs Hosp L2
[2023-10-20] MEDS: Atorvastatin Calcium 80 MG Tablet PO (22:04)
[2023-10-20] MEDS: traZODone 50 MG Tablet 150 MG PO (22:04)
[2023-10-20] MEDS: Insulin Glargine-YFGN 100 UNIT/ML Pen 15 UNIT SC (22:04)
[2023-10-20] MEDS: Pregabalin 75 MG Capsule PO (22:07)
[2023-10-20] MEDS: Insulin Lispro 100 UNIT/ML INSULN.PEN SC (22:08)
[2023-10-21 01:01] LABS: Bedside Glucose 283 mg/dL (74-106)
[2023-10-21 03:00] VITALS: BP 171/89; PULSE 74; RESP 18; TEMP 36.4; O2SAT 99
[2023-10-21 03:52] LABS: Vancomycin, Trough Level 32.4 ug/mL (5.0-15.0)
--- NOTE | 2023-10-21 04:32 | PCM.RX.CS ---
Consult Antibiotic Management Pharmacy has been consulted to manage selected antiobiotic: Vancomycin Type of Intervention Type of Consult: Follow-up Suspected Infection Suspected Infection: Osteomyelitis Labs Labs: Sodium 141 mmol/L (136-145) 10/20/23 06:19 Potassium 3.4 mmol/L (3.5-5.1) L 10/20/23 06:19 Chloride 108 mmol/L (98-107) H 10/20/23 06:19 Carbon Dioxide 31.0 mmol/L (21.0-32.0) 10/20/23 06:19 Anion Gap 2 (5-15) L 10/20/23 06:19 BUN 11 mg/dL (7-18) 10/20/23 06:19 Creatinine 0.96 mg/dL (0.70-1.30) 10/20/23 06:19 Est GFR (MDRD) Af Amer 101 mL/min (>60) 10/20/23 06:19 Est GFR (MDRD) Non-Af 84 mL/min (>60) 10/20/23 06:19 BUN/Creatinine Ratio 11.5 RATIO (10-20) 10/20/23 06:19 Glucose 119 mg/dL (74-106) H 10/20/23 06:19 Vancomycin Trough 32.4 ug/mL (5.0-15.0) H 10/21/23 03:08 Microbiology Microbiology: Microbiology 10/20/23 Unknown Bone - Other Gram Stain - Final 10/20/23 Unknown Tissue - Other Gram Stain - Final 10/20/23 Unknown Wound - Left Foot Gram Stain - Final Dosing Weight Weight used for dosin.2 kg Estimated Creatinine Clearance Estimated Creatinine Clearance: 98 Goal Trough Goal Trough: 15-20 mcg/mL Pharmacy Plan for Drug Dosing Pharmacy Plan for Drug Dosing: Vancomycin trough, drawn 10.5 hours post-dose, was very high at 32.4. Current dosing was suspended. A random vanco level will be drawn in 12 hours and further dosing determined from that result if back under 20mg/L. Pharmacy Service will continue to monitor and adjust dosing as required. Follow-Up Labs Follow-Up Labs: Trough: Vancomycin (random) Date/Time Labs Ordered Labs to be done on [date and time ordered]: 10/21/23 @1500
[2023-10-21] MEDS: Menthol/Lanolin/Calamine/Znox 113 GM Tube 1 APPLIC TOPICAL ×3 (05:44→20:21)
[2023-10-21] MEDS: Piperacil/Tazobactam 3.375 GM in 0.9% Normal Saline (50mL MB+) 50 ML IV ×3 (05:44→23:36)
[2023-10-21] MEDS: Insulin Lispro 100 UNIT/ML INSULN.PEN SC ×4 (05:45→23:54)
[2023-10-21 06:13] LABS: Bedside Glucose 206 mg/dL (74-106)
[2023-10-21 07:06] VITALS: O2SAT 95
--- NOTE | 2023-10-21 07:37 | PN.HOSP_ITS ---
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 (10/19/23) Personal history of other endocrine, nutritional and metabolic disease (10/19/23) Presence of coronary angioplasty implant and graft (10/19/23) Subjective Subjective Patient is a 63-year-old gentleman with history of osteomyelitis involving the left foot underwent excision of calcaneal bone by podiatry on 10/20/2023 Objective Data Objective Data Vital Signs: Vital Signs Temp Pulse Resp BP Pulse Ox O2 Del Method O2 Flow Rate 97.6 F L 74 18 171/89 H 99 Nasal Cannula 1 10/21/23 03:00 10/21/23 03:00 10/21/23 03:00 10/21/23 03:00 10/21/23 03:00 10/21/23 03:00 10/21/23 03:00 Oxygen Flow Rate (L/min) 1 Oxygen Delivery Method Nasal Cannula Weight: 113.2 kg Body Mass Index (BMI) 35.8 Intake & Output: Intake and Output for Last 24 Hours 10/19/23 10/20/23 10/21/23 23:59 23:59 23:59 Intake Total 785 / 785 2530 / 2530 50 / 50 Output Total 750 / 750 700 / 700 Balance 785 / 785 1780 / 1780 -650 / -650 Medical Nutrition Assessment Dietitian: Malnutrition Criteria Met Start: 10/20/23 09:35 Freq: Status: Active Protocol: Document 10/20/23 09:35 AG (Rec: 10/20/23 09:35 [id number]) Nutrition Malnutrition Evidence of Malnutrition Exists Yes Malnutrition (severe): Acute Illness/Injury Evidenced By Suboptimal Energy Intake ( Severe),Weight Loss (Severe) Clinical Problem Acute Disease or Injury Related Malnutrition Etiology severe, acute malnutrition related to inadequate energy intake w/ dislike of SNF food Signs/Symptoms as evidenced by unintentional 14.3kg/11% wt loss, estimated PO intake meeting <75% of estimated energy needs > 1 month Status Active Problem Recommendation Dietitian Recommendations/Changes recommend advance diet as tolerated to Carbohydrate Controlled; continue Glucerna 120mL 4x/day given evidence of malnutrition. Will add Aubrey BID for wounds. Lab / Micro Data 10/20/23 06:19 10/20/23 06:19 Labs: Laboratory Results - last 24 hr 10/20/23 06:19: Hemoglobin A1c 6.9 H 10/20/23 14:18: POC Glucose 115 H 10/20/23 16:20: POC Glucose 148 H 10/20/23 22:03: POC Glucose 283 H 10/21/23 03:08: Vancomycin Trough 32.4 H 10/21/23 05:44: POC Glucose 206 H Micro: Microbiology 10/20/23 Unknown Bone - Other Gram Stain - Final 10/20/23 Unknown Tissue - Other Gram Stain - Final 10/20/23 Unknown Wound - Left Foot Gram Stain - Final Radiography Diagnostic Testing: Radiology Impression Chest X-Ray 10/20/23 08:07 IMPRESSION: Slight radiographic improvement. Elevation of the right hemidiaphragm with right basilar atelectasis. No acute or emergent finding. Electronically Signed: Simeon Covarrubias MD at 10:26 EST Reading Location ID and State: [address] [place] [address] , Service support , Physical Exam Narrative GENERAL: cooperative HEENT: Atraumatic; normocephalic EYES; Anicteric, Normal Conjunctiva NECK; supple, normal thyroid, RESPIRATORY: Diminished to auscultation CARDIOVASCULAR: Regular S1 S2, GI: soft, normoactive bowel sounds, : No Renal angle tenderness; EXTREMITIES: No edema, no clubbing, MUSCULOSKELETAL: Left foot in surgical dressing NEURO: Awake; no lateralizing signs. SKIN: No Rash PSYCH; Flat affect Assessment & Plan Assessment/Plan (1) Acute osteomyelitis of left foot: PLAN: Plan Patient is a 63-year-old gentleman with history of osteomyelitis involving the left foot underwent excision of calcaneal bone by podiatry on 10/20/2023 1. Osteomyelitis of the left calcaneus -status post partial excision of the calcaneal bone with application of delta frame external fixator 10/20/2023 cultures sent, consult subsequently placed to ID also requested for PT OT eval and treatment 2. 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 Placed on long acting insulin, Accu-Cheks a.c. and at bedtime and covered with sliding scale insulin 3. Anemia - Secondary to chronic disorder monitoring H&H and transfuse if patient becomes symptomatic or hemoglobin falls below 7 4. Hypertension - Blood pressure controlled, home medications continued with dose adjustmen 5. Dyslipidemia -Patient is on statin therapy, continued at home dose 6. Obesity ?With BMI of 36, weight loss advised 7. Coronary artery disease ?Per history 8. Diabetic polyneuropathy ?Patient is on Lyrica continue 9. Chronic congestive heart failure with preserved ejection fraction ?Stable and euvolemic 10. Obstructive sleep apnea ?CPAP at night 11. Depression with anxiety ?Patient is on fluoxetine did continue 12. GERD ?Patient is on PPI did continue 13. DVT prophylaxis - On enoxaparin Time spent in the patient's overall evaluation,decision-making process, review of diagnostic data, adjustment of management, discussion with other providers, nursing nursing and ancillary staff involved in patient's care documentation, 40 Minutes Charges/Coding Visit Charges Inpatient E&M: 79760 Subs Hosp L2
[2023-10-21 09:18] VITALS: BP 149/88; PULSE 83; RESP 18; TEMP 36.6; O2SAT 95
[2023-10-21] MEDS: Finasteride 5 MG Tablet PO (09:26)
[2023-10-21] MEDS: Isosorbide Mononitrate 30 MG Tablet PO (09:26)
[2023-10-21] MEDS: amLODIPine 10 MG Tablet PO ×2 (09:26→23:49)
[2023-10-21] MEDS: Aspirin E.C. 81 MG Tablet PO (09:26)
[2023-10-21] MEDS: FLUoxetine 20 MG Capsule PO (09:27)
[2023-10-21] MEDS: Fluoxetine HCl 40 MG CAPSULE PO (09:27)
[2023-10-21] MEDS: Pantoprazole Sodium 40 MG Tablet PO (09:27)
[2023-10-21] MEDS: Insulin Glargine-YFGN 100 UNIT/ML Pen 15 UNIT SC ×2 (09:36→23:53)
[2023-10-21] MEDS: Pregabalin 75 MG Capsule PO ×2 (09:41→23:49)
--- NOTE | 2023-10-21 10:29 | PN_ITS ---
Subjective Subjective 63M 1 day post op denies constitutional symptoms denies pain no issues overnight Objective Data Objective Data Vital Signs: Vital Signs Temp Pulse Resp BP Pulse Ox O2 Del Method O2 Flow Rate 97.9 F 83 18 149/88 H 95 Nasal Cannula 2 10/21/23 09:18 10/21/23 09:18 10/21/23 09:18 10/21/23 09:18 10/21/23 09:18 10/21/23 09:18 10/21/23 09:18 Oxygen Flow Rate (L/min) 2 Oxygen Delivery Method Nasal Cannula Weight: 113.2 kg Body Mass Index (BMI) 35.8 Intake & Output: Intake and Output for Last 24 Hours 10/19/23 10/20/23 10/21/23 23:59 23:59 23:59 Intake Total 785 / 785 2530 / 2530 50 / 50 Output Total 750 / 750 700 / 700 Balance 785 / 785 1780 / 1780 -650 / -650 Medical Nutrition Assessment Dietitian: Malnutrition Criteria Met Start: 10/20/23 09:35 Freq: Status: Active Protocol: Document 10/20/23 09:35 AG (Rec: 10/20/23 09:35 [id number]) Nutrition Malnutrition Evidence of Malnutrition Exists Yes Malnutrition (severe): Acute Illness/Injury Evidenced By Suboptimal Energy Intake ( Severe),Weight Loss (Severe) Clinical Problem Acute Disease or Injury Related Malnutrition Etiology severe, acute malnutrition related to inadequate energy intake w/ dislike of SNF food Signs/Symptoms as evidenced by unintentional 14.3kg/11% wt loss, estimated PO intake meeting <75% of estimated energy needs > 1 month Status Active Problem Recommendation Dietitian Recommendations/Changes recommend advance diet as tolerated to Carbohydrate Controlled; continue Glucerna 120mL 4x/day given evidence of malnutrition. Will add Aubrey BID for wounds. Lab / Micro Data 10/20/23 06:19 10/20/23 06:19 Labs: Laboratory Results - last 24 hr 10/20/23 14:18: POC Glucose 115 H 10/20/23 16:20: POC Glucose 148 H 10/20/23 22:03: POC Glucose 283 H 10/21/23 03:08: Vancomycin Trough 32.4 H 10/21/23 05:44: POC Glucose 206 H Micro: Microbiology 10/20/23 Unknown Wound - Left Foot Gram Stain - Final 10/20/23 Unknown Wound - Left Foot Wound Culture - Preliminary No growth-Final to follow 10/20/23 Unknown Bone - Other Gram Stain - Final 10/20/23 Unknown Bone - Other Wound Culture - Preliminary Staphylococcus species 10/20/23 Unknown Tissue - Other Gram Stain - Final 10/20/23 Unknown Tissue - Other Wound Culture - Preliminary Staphylococcus species Gram positive organism Physical Exam Narrative intact Delta frame external fixation device to left lower extermity tibial, calcaneal and 1st metatarsal pin sites intact. Vessel loop closure intact to posterior heel with combination incisoin/full thi ckness wound down to bone present, no obvious acute signs of infection no sign of DVT, no change in NV status Assessment & Plan Assessment/Plan (1) Non-pressure chronic ulcer of other part of left foot with necrosis of bone: PLAN: Exam performed Dressing change pin sites intact vessel closure posterior heel wound intact wo und appears healthy granular resolved bleeding noted. Intraoperative cultures pending Recommend ID for antibiotic management Recommend SNF for nonweightbearing and wound care We dressed wound site with Betadine wet-to-dry pin sites with Betadine Adaptic as well as incisional site with Betadine Adaptic 4 x 4's Kerlix and New bandage. Next dressing changes in 2 to 3 days as long as there is no strikethrough Will continue to follow closely (2) Acute osteomyelitis of left foot: (3) Non healing left heel wound: (4) Hx of type 2 diabetes mellitus:
[2023-10-21 11:51] LABS: Bedside Glucose 195 mg/dL (74-106)
[2023-10-21] MEDS: Enoxaparin 40 MG/0.4 ML Syringe SC (12:39)
[2023-10-21 14:00] VITALS: BP 137/80; PULSE 67; RESP 18; TEMP 36.4; O2SAT 97
[2023-10-21] MEDS: 0.9% Saline Lock 10 ML Syringe IV ×2 (14:04→23:36)
[2023-10-21 16:56] LABS: Vancomycin, Random Level 25.8 ug/mL (0.0-15.0)
[2023-10-21 17:22] LABS: Bedside Glucose 171 mg/dL (74-106)
--- NOTE | 2023-10-21 17:25 | PCM.RX.CS ---
Consult Antibiotic Management Pharmacy has been consulted to manage selected antiobiotic: Vancomycin Type of Intervention Type of Consult: Follow-up Suspected Infection Suspected Infection: Osteomyelitis Prior Doses of Antibiotics Prior Doses of Antibiotics Received/Current Regimen: Patient previously on 2000mg iv q12h. Labs Labs: Sodium 141 mmol/L (136-145) 10/20/23 06:19 Potassium 3.4 mmol/L (3.5-5.1) L 10/20/23 06:19 Chloride 108 mmol/L (98-107) H 10/20/23 06:19 Carbon Dioxide 31.0 mmol/L (21.0-32.0) 10/20/23 06:19 Anion Gap 2 (5-15) L 10/20/23 06:19 BUN 11 mg/dL (7-18) 10/20/23 06:19 Creatinine 0.96 mg/dL (0.70-1.30) 10/20/23 06:19 Est GFR (MDRD) Af Amer 101 mL/min (>60) 10/20/23 06:19 Est GFR (MDRD) Non-Af 84 mL/min (>60) 10/20/23 06:19 BUN/Creatinine Ratio 11.5 RATIO (10-20) 10/20/23 06:19 Glucose 119 mg/dL (74-106) H 10/20/23 06:19 Vancomycin Trough 32.4 ug/mL (5.0-15.0) H 10/21/23 03:08 Random Vancomycin 25.8 ug/mL (0.0-15.0) H 10/21/23 16:19 Microbiology Microbiology: Microbiology 10/20/23 Unknown Wound - Left Foot Gram Stain - Final 10/20/23 Unknown Wound - Left Foot Wound Culture - Preliminary No growth-Final to follow 10/20/23 Unknown Bone - Other Gram Stain - Final 10/20/23 Unknown Bone - Other Wound Culture - Preliminary Staphylococcus species 10/20/23 Unknown Tissue - Other Gram Stain - Final 10/20/23 Unknown Tissue - Other Wound Culture - Preliminary Staphylococcus species Gram positive organism Dosing Weight Weight used for dosin kg Estimated Creatinine Clearance Estimated Creatinine Clearance: 98 ml/min Goal Trough Goal Trough: 15-20 mcg/mL Pharmacy Plan for Drug Dosing Pharmacy Plan for Drug Dosing: Trough level today at 0308 was elevated at 32.4. Random level ~13 hrs post trough was still elevated at 25.8. This level is ~24hrs post last dose. Renal Cr reviewed and 0.96 with a calculated CrCl ~98ml/min using adjusted body weight 89.6kg. Will continue to hold vancomycin dosing for now. A repeat random level is ordered for tomorrow A.M. Dosing to resume when level </=20. Pharmacy Service will continue to monitor and adjust dosing as required. Follow-Up Labs Follow-Up Labs: Trough: Other (vanco random 11.24.23 0600)
[2023-10-21] MEDS: 0.9% Normal Saline (250mL Bag) 250 ML 15 ML IV (20:19)
[2023-10-21 22:50] VITALS: BP 143/84; PULSE 72; RESP 16; TEMP 36.7; O2SAT 96
[2023-10-21] MEDS: Atorvastatin Calcium 80 MG Tablet PO (23:49)
[2023-10-21] MEDS: traZODone 50 MG Tablet 150 MG PO (23:50)
[2023-10-22 00:42] LABS: Bedside Glucose 172 mg/dL (74-106)
[2023-10-22 04:27] VITALS: BP 130/102; PULSE 69; RESP 18; TEMP 36.5; O2SAT 97
[2023-10-22] MEDS: Piperacil/Tazobactam 3.375 GM in 0.9% Normal Saline (50mL MB+) 50 ML IV ×3 (05:11→22:07)
[2023-10-22] MEDS: Menthol/Lanolin/Calamine/Znox 113 GM Tube 1 APPLIC TOPICAL ×3 (05:12→22:04)
[2023-10-22 06:46] LABS: Absolute Lymphocyte Count 2.05 X10^3/uL (0.83-4.51); Absolute Neutrophil Count 9.1 X10^3/uL (2.0-7.7); Basophil# 0.04 X10^3/uL; Basophil% 0.3 % (0-1); Eosinophil# 0.12 X10^3/uL; Hemoglobin 11.6 g/dL (13.0-16.5); Lymphocyte # 2.05 X10^3/ul (0.83-4.51); Lymphocyte % 16.3 % (19-41); Mean Corp Hgb Conc 32.2 g/dL (32-36); Mean Corpuscular Hgb 27.5 pg (27.0-32.0); Mean Corpuscular Volume 85.3 fL (80-94); Mean Platelet Vol. 10.3 fl (6.2-12.0); Monocyte# 1.18 X10^3/uL; Monocyte% 9.4 % (0-10); NRBC Flagged by Analyzer 0 % (0-5); Neutrophil # 9.12 X10^3/uL (2.7-7.7); Neutrophil % 72.7 % (47-70); Platelet Count 217 K/mm3 (150-450); RBC Distribution Width SD 43.8 fl (35.1-43.9); Red Blood Count 4.22 M/mm3 (4.6-6.2); White Blood Count 12.6 K/mm3 (4.4-11.0)
--- NOTE | 2023-10-22 07:00 | NURSING ---
Patient is frustrated about getting woken up early for labs. This RN explained that the results need to be in before the doctors round. Patient was not satisfied by that answer. He can't wait to go home and sleep in his own bed where no one will wake him up (after he goes to a group home.) This RN encouraged him to work with therapy today, so he can get out of hospital sooner. (Patient refused therapy yesterday.) Patient said, I know.
[2023-10-22 07:13] LABS: Bedside Glucose 123 mg/dL (74-106)
[2023-10-22 07:18] LABS: Anion Gap 1 (5-15); BUN 18 mg/dL (7-18); BUN/Creat Ratio 9.3 RATIO (10-20); Chloride 108 mmol/L (98-107); Creatinine, Serum 1.94 mg/dL (0.70-1.30); EST Glomerular Filtration Rate 37 mL/min (>60); Est Glom Filt Rate - Afr Amer 45 mL/min (>60); Estimated Creatinine Clearance 39.72 ml/min; Glucose 139 mg/dL (74-106); Magnesium 1.9 mg/dL (1.6-2.6); Phosphorus 3.2 mg/dL (2.5-4.9); Sodium Level 140 mmol/L (136-145)
--- NOTE | 2023-10-22 07:18 | PN.HOSP_ITS ---
Reason for Visit Reason for Visit: Diagnoses Type 2 diabetes mellitus with diabetic polyneuropathy (10/19/23) Type 2 diabetes mellitus with other specified complication (10/19/23) Major depressive disorder, single episode, unspecified (10/19/23) Anxiety disorder, unspecified (10/19/23) Essential (primary) hypertension (10/19/23) Gastro-esophageal reflux disease without esophagitis (10/19/23) Non-pressure chronic ulcer of other part of left foot with necrosis of bone (10/19/23) Other instability, left ankle (10/19/23) Other acute osteomyelitis, left ankle and foot (10/19/23) Unspecified open wound, left foot, initial encounter (10/19/23) detention (current) use of insulin (10/19/23) Personal history of other endocrine, nutritional and metabolic disease (10/19/23) Presence of coronary angioplasty implant and graft (10/19/23) Subjective Subjective Patient wound cultures positive for MRSA. Vancomycin added to his therapy starting 10/21/2023. Awaiting ID input Objective Data Objective Data Vital Signs: Vital Signs Temp Pulse Resp BP Pulse Ox O2 Del Method O2 Flow Rate 97.7 F L 69 18 130/102 H 97 Nasal Cannula 2 10/22/23 04:27 10/22/23 04:27 10/22/23 04:27 10/22/23 04:27 10/22/23 04:27 10/22/23 04:32 10/22/23 04:32 Oxygen Flow Rate (L/min) 2 Oxygen Delivery Method Nasal Cannula Weight: 113.2 kg Body Mass Index (BMI) 35.8 Intake & Output: Intake and Output for Last 24 Hours 10/20/23 10/21/23 10/22/23 23:59 23:59 23:59 Intake Total 2530 / 2530 950 / 1150 250 / 250 Output Total 750 / 750 1400 / 1700 600 / 600 Balance 1780 / 1780 -450 / -550 -350 / -350 Medical Nutrition Assessment Dietitian: Malnutrition Criteria Met Start: 10/20/23 09:35 Freq: Status: Active Protocol: Document 10/20/23 09:35 AG (Rec: 10/20/23 09:35 [id number]) Nutrition Malnutrition Evidence of Malnutrition Exists Yes Malnutrition (severe): Acute Illness/Injury Evidenced By Suboptimal Energy Intake ( Severe),Weight Loss (Severe) Clinical Problem Acute Disease or Injury Related Malnutrition Etiology severe, acute malnutrition related to inadequate energy intake w/ dislike of SNF food Signs/Symptoms as evidenced by unintentional 14.3kg/11% wt loss, estimated PO intake meeting <75% of estimated energy needs > 1 month Status Active Problem Recommendation Dietitian Recommendations/Changes recommend advance diet as tolerated to Carbohydrate Controlled; continue Glucerna 120mL 4x/day given evidence of malnutrition. Will add Aubrey BID for wounds. Lab / Micro Data 10/22/23 06:30 10/22/23 06:30 Labs: Laboratory Results - last 24 hr 10/21/23 11:19: POC Glucose 195 H 10/21/23 16:19: Random Vancomycin 25.8 H 10/21/23 16:53: POC Glucose 171 H 10/21/23 23:45: POC Glucose 172 H 10/22/23 06:30: WBC 12.6 H, RBC 4.22 L, Hgb 11.6 L, Hct 36.0 L, MCV 85.3, MCH 27.5, MCHC 32.2, RDW Std Deviation 43.8, RDW Coeff of James 14.0, Plt Count 217, MPV 10.3, Immature Gran % (Auto) 0.300, Neut % (Auto) 72.7 H, Lymph % (Auto) 16.3 L, [place] % (Auto) 9.4, Eos % (Auto) 1.0, Baso % (Auto) 0.3, Absolute Neuts (auto) 9.1 H, Absolute Lymphs (auto) 2.05, Nucleated RBC % 0 10/22/23 06:54: POC Glucose 123 H Micro: Microbiology 10/20/23 Unknown Wound - Left Foot Gram Stain - Final 10/20/23 Unknown Wound - Left Foot Wound Culture - Preliminary No growth-Final to follow 10/20/23 Unknown Bone - Other Gram Stain - Final 10/20/23 Unknown Bone - Other Wound Culture - Preliminary Staphylococcus species 10/20/23 Unknown Tissue - Other Gram Stain - Final 10/20/23 Unknown Tissue - Other Wound Culture - Preliminary Staphylococcus species Gram positive organism Physical Exam Narrative GENERAL: cooperative HEENT: Atraumatic; normocephalic EYES; Anicteric, Normal Conjunctiva NECK; supple, normal thyroid, RESPIRATORY: Diminished to auscultation CARDIOVASCULAR: Regular S1 S2, GI: soft, normoactive bowel sounds, : No Renal angle tenderness; EXTREMITIES: No edema, no clubbing, MUSCULOSKELETAL: Left foot in surgical dressing NEURO: Awake; no lateralizing signs. SKIN: No Rash PSYCH; Flat affect Assessment & Plan Assessment/Plan (1) Acute osteomyelitis of left foot: PLAN: Plan Patient is a 63-year-old gentleman with history of osteomyelitis involving the left foot underwent excision of calcaneal bone by podiatry on 10/20/2023 1. Osteomyelitis of the left calcaneus -status post partial excision of the calcaneal bone with application of delta frame external fixator 10/20/2023 cultures sent, consult subsequently placed to ID also requested for PT OT eval and treatment ? 10/22/2023;Patient wound cultures positive for MRSA. Vancomycin added to his therapy starting 10/21/2023. Awaiting ID input 2. 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 Placed on long acting insulin, Accu-Cheks a.c. and at bedtime and covered with sliding scale insulin 3. Anemia - Secondary to chronic disorder monitoring H&H and transfuse if patient becomes symptomatic or hemoglobin falls below 7 4. Hypertension - Blood pressure controlled, home medications continued with dose adjustmen 5. Dyslipidemia -Patient is on statin therapy, continued at home dose 6. Obesity ?With BMI of 36, weight loss advised 7. Coronary artery disease ?Per history 8. Diabetic polyneuropathy ?Patient is on Lyrica continue 9. Chronic congestive heart failure with preserved ejection fraction ?Stable and euvolemic 10. Obstructive sleep apnea ?CPAP at night 11. Depression with anxiety ?Patient is on fluoxetine did continue 12. GERD ?Patient is on PPI did continue 13. DVT prophylaxis - On enoxaparin Time spent in the patient's overall evaluation,decision-making process, review of diagnostic data, adjustment of management, discussion with other providers, nursing nursing and ancillary staff involved in patient's care documentation, 40 Minutes Charges/Coding Visit Charges Inpatient E&M: 34332 Subs Hosp L2
[2023-10-22 07:28] LABS: Vancomycin, Random Level 19.5 ug/mL (0.0-15.0)
--- NOTE | 2023-10-22 08:47 | PCM.RX.CS ---
Consult Antibiotic Management Pharmacy has been consulted to manage selected antiobiotic: Vancomycin Type of Intervention Type of Consult: Follow-up Suspected Infection Suspected Infection: Osteomyelitis Labs Labs: Sodium 140 mmol/L (136-145) 10/22/23 06:30 Potassium 4.0 mmol/L (3.5-5.1) 10/22/23 06:30 Chloride 108 mmol/L (98-107) H 10/22/23 06:30 Carbon Dioxide 31.0 mmol/L (21.0-32.0) 10/22/23 06:30 Anion Gap 1 (5-15) L 10/22/23 06:30 BUN 18 mg/dL (7-18) 10/22/23 06:30 Creatinine 1.94 mg/dL (0.70-1.30) H 10/22/23 06:30 Est GFR (MDRD) Af Amer 45 mL/min (>60) L 10/22/23 06:30 Est GFR (MDRD) Non-Af 37 mL/min (>60) L 10/22/23 06:30 BUN/Creatinine Ratio 9.3 RATIO (10-20) L 10/22/23 06:30 Glucose 139 mg/dL (74-106) H 10/22/23 06:30 Vancomycin Trough 32.4 ug/mL (5.0-15.0) H 10/21/23 03:08 Random Vancomycin 19.5 ug/mL (0.0-15.0) H 10/22/23 06:30 Microbiology Microbiology: Microbiology 10/20/23 Unknown Bone - Other Gram Stain - Final 10/20/23 Unknown Bone - Other Wound Culture - Preliminary Meth. resistant Staph. aureus Gram positive organism 10/20/23 Unknown Wound - Left Foot Gram Stain - Final 10/20/23 Unknown Wound - Left Foot Wound Culture - Preliminary No growth-Final to follow 10/20/23 Unknown Tissue - Other Gram Stain - Final 10/20/23 Unknown Tissue - Other Wound Culture - Preliminary Staphylococcus species Gram positive organism Goal Trough Goal Trough: 15-20 mcg/mL Pharmacy Plan for Drug Dosing Pharmacy Plan for Drug Dosing: VANCOMYCIN LEVEL RECEIVED Current Vancomycin Dose: current dose on hold due to elevated trough Number of Doses Received: Vancomycin Level: random level resulted at 19.5 Hours Since Last Dose: 38 hours since last 2000mg dose Renal Function: SrCr 1.94 Renal Function Trend: SrCr increased from 0.96 on 10/21/23 Lab/Micro: Vancomycin Plan/Comments: due to increase in SrCr, recommend dosing pt as a renally dosed pt. recommend a 1000mg x1 dose and checking a random level 10/23/23 at 0600 Pending Level: 10/23/23 at 0600 Pharmacy Service will continue to monitor and adjust dosing as required. Follow-Up Labs Follow-Up Labs: Trough: Vancomycin (10/23/23 @ 0600 (random level))
--- NOTE | 2023-10-22 09:42 | PCM.PROGNOTE ---
Subjective Subjective 2 days post op some strikethrough noted overnight - nursing bolstered dressing denies constitutionals no new compaints Objective Data Objective Data Vital Signs: Vital Signs Temp Pulse Resp BP Pulse Ox O2 Del Method O2 Flow Rate 97.7 F L 69 18 130/102 H 97 Nasal Cannula 2 10/22/23 04:27 10/22/23 04:27 10/22/23 04:27 10/22/23 04:27 10/22/23 04:27 10/22/23 04:32 10/22/23 04:32 Oxygen Flow Rate (L/min) 2 Oxygen Delivery Method Nasal Cannula Weight: 113.2 kg Body Mass Index (BMI) 35.8 Intake & Output: Intake and Output for Last 24 Hours 10/20/23 10/21/23 10/22/23 23:59 23:59 23:59 Intake Total 2530 / 2530 950 / 1150 300 / 300 Output Total 750 / 750 1400 / 1700 600 / 600 Balance 1780 / 1780 -450 / -550 -300 / -300 Medical Nutrition Assessment Dietitian: Malnutrition Criteria Met Start: 10/20/23 09:35 Freq: Status: Active Protocol: Document 10/20/23 09:35 (Rec: 10/20/23 09:35 [id number]) Nutrition Malnutrition Evidence of Malnutrition Exists Yes Malnutrition (severe): Acute Illness/Injury Evidenced By Suboptimal Energy Intake ( Severe),Weight Loss (Severe) Clinical Problem Acute Disease or Injury Related Malnutrition Etiology severe, acute malnutrition related to inadequate energy intake w/ dislike of SNF food Signs/Symptoms as evidenced by unintentional 14.3kg/11% wt loss, estimated PO intake meeting <75% of estimated energy needs > 1 month Status Active Problem Recommendation Dietitian Recommendations/Changes recommend advance diet as tolerated to Carbohydrate Controlled; continue Glucerna 120mL 4x/day given evidence of malnutrition. Will add Aubrey BID for wounds. Lab / Micro Data 10/22/23 06:30 10/22/23 06:30 Labs: Laboratory Results - last 24 hr 10/21/23 11:19: POC Glucose 195 H 10/21/23 16:19: Random Vancomycin 25.8 H 10/21/23 16:53: POC Glucose 171 H 10/21/23 23:45: POC Glucose 172 H 10/22/23 06:30: WBC 12.6 H, RBC 4.22 L, Hgb 11.6 L, Hct 36.0 L, MCV 85.3, MCH 27.5, MCHC 32.2, RDW Std Deviation 43.8, RDW Coeff of James 14.0, Plt Count 217, MPV 10.3, Immature Gran % (Auto) 0.300, Neut % (Auto) 72.7 H, Lymph % (Auto) 16.3 L, [place] % (Auto) 9.4, Eos % (Auto) 1.0, Baso % (Auto) 0.3, Absolute Neuts (auto) 9.1 H, Absolute Lymphs (auto) 2.05, Nucleated RBC % 0, Sodium 140, Potassium 4.0, Chloride 108 H, Carbon Dioxide 31.0, Anion Gap 1 L, BUN 18, Creatinine 1.94 H, Estim Creat Clear Calc 39.72, Est GFR (MDRD) Af Amer 45 L, Est GFR (MDRD) Non-Af 37 L, BUN/Creatinine Ratio 9.3 L, Glucose 139 H, Calcium 9.0, Phosphorus 3.2, Magnesium 1.9, Random Vancomycin 19.5 H 10/22/23 06:54: POC Glucose 123 H Micro: Microbiology 10/20/23 Unknown Tissue - Other Gram Stain - Final 10/20/23 Unknown Tissue - Other Wound Culture - Preliminary Staphylococcus aureus Gram positive organism 10/20/23 Unknown Tissue - Other Anaerobic Culture - Preliminary Checking for anaerobes, further studies to follow. 10/20/23 Unknown Bone - Other Gram Stain - Final 10/20/23 Unknown Bone - Other Wound Culture - Preliminary Meth. resistant Staph. aureus Gram positive organism 10/20/23 Unknown Bone - Other Anaerobic Culture - Preliminary Checking for anaerobes, further studies to follow. 10/20/23 Unknown Wound - Left Foot Gram Stain - Final 10/20/23 Unknown Wound - Left Foot Wound Culture - Preliminary No growth-Final to follow 10/20/23 Unknown Wound - Left Foot Anaerobic Culture - Preliminary Checking for anaerobes, further studies to follow. Physical Exam Narrative intact Delta frame external fixation device to left lower extermity tibial, calcaneal and 1st metatarsal pin sites intact. Vessel loop closure intact to posterior heel with combination incisoin/full thickness wound down to bone present, no obvious acute signs of infection no sign of DVT, no change in NV status Const alert and oriented x3 Assessment & Plan Assessment/Plan (1) Non-pressure chronic ulcer of other part of left foot with necrosis of bone: PLAN: Exam performed Dressing change pin sites intact vessel closure posterior heel wound intact wound appears healthy granular resolved bleeding noted. Bone culture + for MRSA Recommend ID for antibiotic management Recommend SNF for nonweightbearing and wound care We dressed wound site with Betadine wet-to-dry pin sites with Betadine Adaptic as well as incisional site with Betadine Adaptic 4 x 4's Kerlix and New bandage - next dressing change 10/25/23 Will continue to follow closely (2) Acute osteomyelitis of left foot: (3) Non healing left heel wound: (4) Hx of type 2 diabetes mellitus:
[2023-10-22] MEDS: Finasteride 5 MG Tablet PO (09:55)
[2023-10-22] MEDS: Vancomycin IV 1,000 MG/200 ML BAG 200 MG IV (09:56)
[2023-10-22] MEDS: Isosorbide Mononitrate 30 MG Tablet PO (09:56)
[2023-10-22] MEDS: Pantoprazole Sodium 40 MG Tablet PO (09:56)
[2023-10-22] MEDS: Insulin Glargine-YFGN 100 UNIT/ML Pen 15 UNIT SC ×2 (09:56→22:06)
[2023-10-22] MEDS: Enoxaparin 40 MG/0.4 ML Syringe SC (09:56)
[2023-10-22] MEDS: Aspirin E.C. 81 MG Tablet PO (09:57)
[2023-10-22] MEDS: FLUoxetine 20 MG Capsule PO (09:57)
[2023-10-22] MEDS: Pregabalin 75 MG Capsule PO ×2 (09:57→22:07)
[2023-10-22] MEDS: amLODIPine 10 MG Tablet PO ×2 (09:57→22:05)
[2023-10-22] MEDS: Fluoxetine HCl 40 MG CAPSULE PO (09:57)
[2023-10-22 09:58] VITALS: O2SAT 97
[2023-10-22 10:00] VITALS: BP 157/87; PULSE 74; RESP 16; TEMP 36.6; O2SAT 98
[2023-10-22] MEDS: 0.9% Normal Saline (1000mL) 1,000 ML 100 ML IV ×2 (10:58→21:32)
[2023-10-22] MEDS: Insulin Lispro 100 UNIT/ML INSULN.PEN SC ×3 (11:21→22:06)
[2023-10-22 12:28] VITALS: O2SAT 98
--- NOTE | 2023-10-22 13:18 | CASEMGMT ---
Discharge Planning Updates sent to [facility] ([place]). Asked that precert be submitted today. Nuria Singh, Discharge Planning Asst.
--- NOTE | 2023-10-22 13:51 | PCM.CONS.GEN ---
Assessment & Plan Assessment/Plan (1) Acute osteomyelitis of left foot: PLAN: Now s/p OR 10/20/[address] Hess for I&D, partial excision calcaneal bone, and placement of external fixator. Cxs so far showing MRSA and GPR. Cont vanc/zosyn. Had growth of pseudomonas as well recently. Will follow, thank you (2) Type 2 diabetes mellitus with diabetic polyneuropathy: QUALIFIERS: Diabetes mellitus long filler cigar roller machine insulin use: with long filler cigar roller machine use Qualified Code(s): E11.42 - Type 2 diabetes mellitus with diabetic polyneuropathy; Z79.4 - trauma manager (current) use of insulin HPI Consult Data Date of Consult: 10/22/23 HPI Narrative Reason for Consultation: osteo HPI Narrative: REA HANNA, is a 63 M who presented 10/19/23 from [facility] due to 2-3 weeks worsening L heel wound with progressive moderate pain, swelling, redness, and drainage. Mild associated fever and chills. No recent abx. Came to ED, MRI done, cxs sent, taken to OR 10/20/[address] Hess for I&D and external fixation placement. No n/v/d, feeling ok today. Full ROS performed and neg except as noted above. [facility] Medical History CELESTE (acute kidney injury) Ambulates with cane Amputation of one or more toes Anxiety and depression Arrhythmia Arthritis Aspiration pneumonia Atherosclerotic heart disease of [place] coronary artery without angina pectoris Back pain Back spasm Bilateral leg weakness Blind left eye Blister (nonthermal), left foot, initial encounter Bronchiectasis with (acute) exacerbation Cardiology follow-up encounter Chronic cough Chronic respiratory failure with hypoxia CKD (chronic kidney disease) COPD (chronic obstructive pulmonary disease) Coronary artery disease CPAP (continuous positive airway pressure) dependence Debility, unspecified Decubitus ulcer limited to breakdown of skin (stage 2) Depression Diabetes Essential hypertension Gastric reflux High cholesterol History of aspiration pneumonia History of diabetes mellitus History of echocardiogram History of edema History of gout History of heart attack History of non-ST elevation myocardial infarction (NSTEMI) (08/2016) History of pain when walking History of steroid therapy Hyperglycemia due to type 2 diabetes mellitus Hypertension Insulin dependent diabetes mellitus Irregular heart beat Kidney stones Leg pain, right Leukocytosis Low back pain Memory impairment Migraines Mood disorder Non-smoker Noncompliance by declining intervention or support On home oxygen therapy Peripheral vascular occlusive disease Pneumonia Prostate disease Pulmonary nodule, left Recurrent falls Respiratory failure with hypoxia Right ankle pain Right foot pain Shortness of breath on exertion Silent aspiration Sleep apnea Tremor Type 2 diabetes mellitus with diabetic polyneuropathy Ulcer of left foot, limited to breakdown of skin Vision loss of left eye Wears glasses Wound of left lower extremity Home Medications gauze bandage 4 X 4 (Bordered Gauze) #14 ea 07/03/22 [Rx Last Taken Unknown] walker (Ultra-Light Rollator mis) #1 ea 07/21/22 [Rx Last Taken Unknown] pen needle, diabetic 33 gauge x 5/16 #200 ea 12/02/22 [Rx Last Taken Unknown] fluoxetine 20 mg capsule 20 mg PO DAILY ANXIETY 03/23/23 [History Last Taken 10/19/23] melatonin 3 mg tablet 3 mg PO QHS INSOMNIA 03/23/23 [History Last Taken 10/18/23] atorvastatin 80 mg tablet 80 mg PO QHS CHOLESTEROL 05/25/23 [History Last Taken 10/18/23] fluoxetine 40 mg capsule 40 mg PO DAILY ANXIETY 05/25/23 [History Last Taken 10/19/23] pantoprazole 40 mg tablet,delayed release 40 mg PO DAILY ACID REFLUX 05/25/23 [History Last Taken 10/19/23] trazodone 150 mg tablet 150 mg PO QHS INSOMNIA 05/25/23 [History Last Taken 10/18/23] Wheelchair #1 ea 07/23/23 [Rx Last Taken Unknown] Lift Chair #1 ea 08/06/23 [Rx Last Taken Unknown] bisacodyl 10 mg rectal suppository 10 mg ND DAILY PRN CONSTIPATION 08/28/23 [History Last Taken Unknown] amlodipine 10 mg tablet 10 mg PO BID BLOOD PRESSURE 10/19/23 [History Last Taken 10/19/23] ascorbic acid (vitamin C) 500 mg tablet 500 mg PO BID SUPPLEMENT 10/19/23 [History Last Taken 10/19/23] aspirin 81 mg tablet,delayed release (Ecotrin Low Strength) 81 mg PO DAILY HEART HEALTH 10/19/23 [History Last Taken 10/19/23] ciprofloxacin HCl 750 mg tablet 750 mg PO BID ANTIBIOTIC 10/19/23 [History Last Taken 10/19/23] clopidogrel 75 mg tablet 75 mg PO QHS BLOOD THINNER 10/19/23 [History Last Taken 10/18/23] glimepiride 2 mg tablet 2 mg PO BID DIABETES 10/19/23 [History Last Taken 10/19/23] haloperidol lactate 2 mg/mL oral concentrate 1 mg PO Q6H PRN AGITATION 10/19/23 [History Last Taken Unknown] hydroxyzine HCl 25 mg tablet 50 mg PO QHS 10/19/23 [History Last Taken 10/18/23] hyoscyamine sulfate 0.125 mg tablet 0.125 mg PO Q4H PRN BLADDER 10/19/23 [History Last Taken Unknown] insulin detemir U-100 100 unit/mL (3 mL) subcutaneous pen (Levemir FlexPen) 25 unit subcut BID DIABETES 10/19/23 [History Last Taken 10/19/23] isosorbide mononitrate 30 mg tablet,extended release 24 hr 30 mg PO DAILY HEART 10/19/23 [History Last Taken 10/19/23] lorazepam 0.5 mg tablet 0.5 mg PO Q4H PRN ANXIETY/AGITATION 10/19/23 [History Last Taken Unknown] magnesium 250 mg tablet 250 mg PO DAILY SUPPLEMENT 10/19/23 [History Last Taken 10/19/23] metoclopramide HCl 5 mg tablet 5 mg PO TID INTESTINES 10/19/23 [History Last Taken 10/19/23] nitroglycerin 0.4 mg sublingual tablet 0.4 mg sublingual Q5M PRN CHEST PAIN 10/19/23 [History Last Taken Unknown] oxycodone 5 mg tablet 5 mg PO Q4H PRN PAIN (PAIN SCORE 6-10) 10/19/23 [History Last Taken 10/16/23] pregabalin 75 mg capsule 75 mg PO Q12H PRN PAIN 10/19/23 [History Last Taken Unknown] sennosides 8.6 mg-docusate sodium 50 mg tablet (Senna Plus) 1 tab-cap PO BID CONSTIPATION 10/19/23 [History Last Taken 10/19/23] tizanidine 2 mg tablet 2 mg PO Q8H PRN MUSCLE SPASMS 10/19/23 [History Last Taken Unknown] flash glucose sensor (FreeStyle Mago 14 Day Sensor kit) 10/20/23 [History Last Taken Unknown] Allergy/AdvReac Type Severity Reaction Status Date / Time allopurinol AdvReac Vomiting Verified 10/19/23 14:19 Influenza Virus Vaccines AdvReac Vomiting Verified 10/19/23 14:19 pneumococcal vaccine AdvReac Vomiting Verified 10/19/23 14:19 Family History Mother Diabetes Heart disease CHF Father Heart disease [place]/CAD Myocardial infarction Surgical History H/O lithotripsy History of angioplasty of peripheral vessel (2016) History of angioplasty of peripheral vessel History of ankle surgery History of cardiac catheterization History of coronary artery stent placement (08/2016) History of coronary artery stent placement History of esophagogastroduodenoscopy (EGD) History of left heart catheterization (11/15/17) History of thyroid surgery Hx of lithotripsy Hx of surgery to heart and great vessels, presenting hazards to health Hx of surgical procedure Hx of thyroidectomy Hx of toe surgery Hx of toe surgery PEG (percutaneous endoscopic gastrostomy) status Social History household members: spouse housing: apartment Smoking Status: Never smoker alcohol intake: never substance use type: does not use Physical Exam Const alert, oriented x3 and no apparent distress General Appearance: cooperative HEENT normocephalic and head/scalp atraumatic Eyes PERRL and EOMs intact bilaterally Neck supple and No nodes Resp normal air movement and clear to auscultation bilaterally Cardio regular rate and regular rhythm GI soft to palpation, non-tender and non-distended Extremity General Extremity: Negative for edema Skin Skin Narrative: LLE wrapped with ext fix in place Neuro CN's II-XII intact bilaterally Medical Records Data Medical Nutrition Assessment Dietitian: Malnutrition Criteria Met Start: 10/20/23 09:35 Freq: Status: Active Protocol: Document 10/20/23 09:35 (Rec: 10/20/23 09:35 [id number]) Nutrition Malnutrition Evidence of Malnutrition Exists Yes Malnutrition (severe): Acute Illness/Injury Evidenced By Suboptimal Energy Intake ( Severe),Weight Loss (Severe) Clinical Problem Acute Disease or Injury Related Malnutrition Etiology severe, acute malnutrition related to inadequate energy intake w/ dislike of SNF food Signs/Symptoms as evidenced by unintentional 14.3kg/11% wt loss, estimated PO intake meeting <75% of estimated energy needs > 1 month Status Active Problem Recommendation Dietitian Recommendations/Changes recommend advance diet as tolerated to Carbohydrate Controlled; continue Glucerna 120mL 4x/day given evidence of malnutrition. Will add Aubrey BID for wounds. Lab / Micro Data Attestation: I reviewed the patient's lab results. 10/22/23 06:30 10/22/23 06:30 Labs: Laboratory Results - last 24 hr 10/21/23 16:19: Random Vancomycin 25.8 H 10/21/23 16:53: POC Glucose 171 H 10/21/23 23:45: POC Glucose 172 H 10/22/23 06:30: WBC 12.6 H, RBC 4.22 L, Hgb 11.6 L, Hct 36.0 L, MCV 85.3, MCH 27.5, MCHC 32.2, RDW Std Deviation 43.8, RDW Coeff of James 14.0, Plt Count 217, MPV 10.3, Immature Gran % (Auto) 0.300, Neut % (Auto) 72.7 H, Lymph % (Auto) 16.3 L, [place] % (Auto) 9.4, Eos % (Auto) 1.0, Baso % (Auto) 0.3, Absolute Neuts (auto) 9.1 H, Absolute Lymphs (auto) 2.05, Nucleated RBC % 0, Sodium 140, Potassium 4.0, Chloride 108 H, Carbon Dioxide 31.0, Anion Gap 1 L, BUN 18, Creatinine 1.94 H, Estim Creat Clear Calc 39.72, Est GFR (MDRD) Af Amer 45 L, Est GFR (MDRD) Non-Af 37 L, BUN/Creatinine Ratio 9.3 L, Glucose 139 H, Calcium 9.0, Phosphorus 3.2, Magnesium 1.9, Random Vancomycin 19.5 H 10/22/23 06:54: POC Glucose 123 H Micro: Microbiology 10/20/23 Unknown Wound - Left Foot Gram Stain - Final 10/20/23 Unknown Wound - Left Foot Wound Culture - Preliminary Gram positive estelle 10/20/23 Unknown Wound - Left Foot Anaerobic Culture - Preliminary Checking for anaerobes, further studies to follow. 10/20/23 Unknown Tissue - Other Gram Stain - Final 10/20/23 Unknown Tissue - Other Wound Culture - Preliminary Staphylococcus aureus Gram positive organism 10/20/23 Unknown Tissue - Other Anaerobic Culture - Preliminary Checking for anaerobes, further studies to follow. 10/20/23 Unknown Bone - Other Gram Stain - Final 10/20/23 Unknown Bone - Other Wound Culture - Preliminary Meth. resistant Staph. aureus Gram positive organism 10/20/23 Unknown Bone - Other Anaerobic Culture - Preliminary Checking for anaerobes, further studies to follow.
[2023-10-22 14:12] VITALS: BP 141/81; PULSE 74; RESP 18; TEMP 36.6; O2SAT 97
--- NOTE | 2023-10-22 14:24 | CHAPLAIN ---
Type of Pastoral Visit _x__ Initial Visit ___ Follow-up Visit ___ On-call Visit ___ General Patient Visit ___ Spiritual Assessment ___ Family Conference ___ Bereavement ___ Rapid Response ___ Code Blue ___ Other (describe below) Pastoral Care Referral From _x__ Patient ___ Family ___ Nurse ___ Physician ___ Manager Body ___ Analytical Manager ___ Other (describe below) Sacrament/Intervention _x__ Active listening ___ Anointing ___ Anabaptism ___ Bereavement ___ Communion ___ Sarai exploration ___ _x__ Life review _x__ Prayer ___ Reconciliation ___ Sacrament of Sick ___ Supportive presence ___ Wedding ___ Other (describe below) Pastoral Comments patient is frequently admitted to the hospital; SO Doris is with him in the room; pt recounts his need for surgery; SO talks about more of the details of the surgery; patient admits to some fear about the surgery but that SO was his support and encouragement throughout it; pt admits that God was with him, as stated by SO; prayer is welcomed for both and further surgery is expected for SO in the near future
--- NOTE | 2023-10-22 15:26 | CASEMGMT ---
Social Work - Advanced Directive Validation POAHC is filed and on the patient's EMR. She Campos is the POC. Call placed to She, to see if she also has the Living Will paperwork for patient. Await return call. -ESTHER Solorzano
--- NOTE | 2023-10-22 15:35 | CASEMGMT ---
Social Work - Initial Note/SDOH assessment SDOH screening completed. Patient had no food insecurity issues related to affording or access of food, but does not like the food at the nursing facility. Reports plan to eat cereal for breakfast, and then /significant other She will bring patient lunch and dinner to [facility]. Patient reports that doesn't really want to be at [facility], because of the food, but at the same time is also willing and accepting of returning to [facility]. Inquired whether patient feels the solution patient and She came up with is feasible, and patient reported in the affirmative. Patient reports agreement to go to [facility]. This content writer explored whether patient has been to any other NFs. Patient reports was at [facility], but was blackballed by the facility, so no an option to return there. This content writer broached with patient the need to work with therapy, as this content writer noted patient's refusal the last 2 days. Patient stated that is not allowed to walk, so refused. Educated patient to the benefit of trying to work with therapy, giving it patient's best effort, as this is what the insurance wants and needs to see. Educated patient that if patient continues to refuse, no one can determine if the level of care is really needed. Patient did not dispute the need for NF right now, and appeared to be worried about not following doctor's orders with the NWB status. Assured patient that therapy is aware of NWB status, and that can work on transfers and strengthening. Therapy did arrive to the room to work with patient and patient agreed to try. Notified discharge planning supervisor that okay to start precert process with [facility]. Plan: Return to [facility] nursing facility, pending insurance authorization. GREEN SHEET on chart, in case of authorization is obtained over the weekend, at which time [facility] knows to call to the nurses station. -ESTHER Solorzano
[2023-10-22 16:56] LABS: Bedside Glucose 233 mg/dL (74-106)
[2023-10-22 17:09] LABS: Bedside Glucose 182 mg/dL (74-106)
[2023-10-22 19:50] VITALS: BP 141/92; PULSE 80; RESP 18; TEMP 36.8; O2SAT 97
[2023-10-22] MEDS: traZODone 50 MG Tablet 150 MG PO (22:05)
[2023-10-22] MEDS: Atorvastatin Calcium 80 MG Tablet PO (22:05)
[2023-10-22 22:52] LABS: Bedside Glucose 200 mg/dL (74-106)
[2023-10-23 02:31] VITALS: BP 161/83; PULSE 66; RESP 16; TEMP 37.2; O2SAT 99
[2023-10-23] MEDS: Menthol/Lanolin/Calamine/Znox 113 GM Tube 1 APPLIC TOPICAL ×3 (05:26→23:45)
[2023-10-23] MEDS: Piperacil/Tazobactam 3.375 GM in 0.9% Normal Saline (50mL MB+) 50 ML IV ×3 (05:26→21:44)
[2023-10-23] MEDS: 0.9% Normal Saline (1000mL) 1,000 ML 100 ML IV ×2 (05:26→16:53)
[2023-10-23] MEDS: Insulin Lispro 100 UNIT/ML INSULN.PEN SC ×4 (06:21→21:50)
[2023-10-23 06:51] LABS: Bedside Glucose 153 mg/dL (74-106)
[2023-10-23 07:33] LABS: Absolute Lymphocyte Count 1.92 X10^3/uL (0.83-4.51); Absolute Neutrophil Count 7.2 X10^3/uL (2.0-7.7); Basophil# 0.03 X10^3/uL; Basophil% 0.3 % (0-1); Eosinophil# 0.14 X10^3/uL; Eosinophils% 1.3 % (0-5); Hematocrit 31.8 % (40-54); Hemoglobin 10.1 g/dL (13.0-16.5); Lymphocyte # 1.92 X10^3/ul (0.83-4.51); Lymphocyte % 18.2 % (19-41); Mean Corp Hgb Conc 31.8 g/dL (32-36); Mean Corpuscular Hgb 27.4 pg (27.0-32.0); Mean Corpuscular Volume 86.2 fL (80-94); Mean Platelet Vol. 10.9 fl (6.2-12.0); Monocyte# 1.15 X10^3/uL; Monocyte% 10.9 % (0-10); NRBC Flagged by Analyzer 0 % (0-5); Neutrophil # 7.24 X10^3/uL (2.7-7.7); Neutrophil % 68.8 % (47-70); Platelet Count 210 K/mm3 (150-450); RBC Distribution Width CV 14.3 % (11.6-14.6); RBC Distribution Width SD 44.7 fl (35.1-43.9); Red Blood Count 3.69 M/mm3 (4.6-6.2); White Blood Count 10.5 K/mm3 (4.4-11.0)
--- NOTE | 2023-10-23 07:35 | PCM.PN.HOSP ---
Reason for Visit Reason for Visit: Diagnoses Type 2 diabetes mellitus with diabetic polyneuropathy (10/19/23) Type 2 diabetes mellitus with other specified complication (10/19/23) Major depressive disorder, single episode, unspecified (10/19/23) Anxiety disorder, unspecified (10/19/23) Essential (primary) hypertension (10/19/23) Gastro-esophageal reflux disease without esophagitis (10/19/23) Non-pressure chronic ulcer of other part of left foot with necrosis of bone (10/19/23) Other instability, left ankle (10/19/23) Other acute osteomyelitis, left ankle and foot (10/19/23) Unspecified open wound, left foot, initial encounter (10/19/23) group home (current) use of insulin (10/19/23) Personal history of other endocrine, nutritional and metabolic disease (10/19/23) Presence of coronary angioplasty implant and graft (10/19/23) Subjective Subjective Patient seen appears comfortable at rest. Cultures so far positive for MRSA, corynebacterium stratum as well as Pseudomonas. Remains on Vanco and Zosyn. Seen in consultation by ID noted recommendations reviewed Objective Data Objective Data Vital Signs: Vital Signs Temp Pulse Resp BP Pulse Ox O2 Del Method O2 Flow Rate 99 F 66 16 161/83 H 99 Nasal Cannula 2 10/23/23 02:31 10/23/23 02:31 10/23/23 02:31 10/23/23 02:31 10/23/23 02:31 10/23/23 02:36 10/23/23 02:36 Oxygen Flow Rate (L/min) 2 Oxygen Delivery Method Nasal Cannula Weight: 113.2 kg Body Mass Index (BMI) 35.8 Intake & Output: Intake and Output for Last 24 Hours 10/21/23 10/22/23 10/23/23 23:59 23:59 23:59 Intake Total 950 / 1150 1800 / 1800 1240 / 1240 Output Total 1400 / 1700 900 / 900 850 / 850 Balance -450 / -550 900 / 900 390 / 390 Medical Nutrition Assessment Dietitian: Malnutrition Criteria Met Start: 10/20/23 09:35 Freq: Status: Active Protocol: Document 10/20/23 09:35 AG (Rec: 10/20/23 09:35 AG [id number]) Nutrition Malnutrition Evidence of Malnutrition Exists Yes Malnutrition (severe): Acute Illness/Injury Evidenced By Suboptimal Energy Intake ( Severe),Weight Loss (Severe) Clinical Problem Acute Disease or Injury Related Malnutrition Etiology severe, acute malnutrition related to inadequate energy intake w/ dislike of SNF food Signs/Symptoms as evidenced by unintentional 14.3kg/11% wt loss, estimated PO intake meeting <75% of estimated energy needs > 1 month Status Active Problem Recommendation Dietitian Recommendations/Changes recommend advance diet as tolerated to Carbohydrate Controlled; continue Glucerna 120mL 4x/day given evidence of malnutrition. Will add Aubrey BID for wounds. Lab / Micro Data 10/23/23 06:14 10/23/23 06:14 Labs: Laboratory Results - last 24 hr 10/22/23 11:20: POC Glucose 233 H 10/22/23 16:47: POC Glucose 182 H 10/22/23 22:03: POC Glucose 200 H 10/23/23 06:14: WBC 10.5, RBC 3.69 L, Hgb 10.1 L, Hct 31.8 L, MCV 86.2, MCH 27.4, MCHC 31.8 L, RDW Std Deviation 44.7 H, RDW Coeff of James 14.3, Plt Count 210, MPV 10.9, Immature Gran % (Auto) 0.500, Neut % (Auto) 68.8, Lymph % (Auto) 18.2 L, [place] % (Auto) 10.9 H, Eos % (Auto) 1.3, Baso % (Auto) 0.3, Absolute Neuts (auto) 7.2, Absolute Lymphs (auto) 1.92, Nucleated RBC % 0 10/23/23 06:19: POC Glucose 153 H Micro: Microbiology 10/20/23 Unknown Wound - Left Foot Gram Stain - Final 10/20/23 Unknown Wound - Left Foot Wound Culture - Final Corynebacterium striatum 10/20/23 Unknown Wound - Left Foot Anaerobic Culture - Final No anaerobic bacteria isolated. 10/20/23 Unknown Bone - Other Gram Stain - Final 10/20/23 Unknown Bone - Other Wound Culture - Final Meth. resistant Staph. aureus Corynebacterium striatum 10/20/23 Unknown Bone - Other Anaerobic Culture - Final No anaerobic bacteria isolated. 10/20/23 Unknown Tissue - Other Gram Stain - Final 10/20/23 Unknown Tissue - Other Wound Culture - Final Meth. resistant Staph. aureus Corynebacterium striatum 10/20/23 Unknown Tissue - Other Anaerobic Culture - Final No anaerobic bacteria isolated. 10/19/23 16:15 Blood Culture (Wb) - Right Hand Blood Culture - Preliminary No growth in 48 hours. 10/19/23 15:50 Blood Culture (Wb) - Anticubital Left Blood Culture - Preliminary No growth in 48 hours. Physical Exam Narrative GENERAL: cooperative HEENT: Atraumatic; normocephalic EYES; Anicteric, Normal Conjunctiva NECK; supple, normal thyroid, RESPIRATORY: Diminished to auscultation CARDIOVASCULAR: Regular S1 S2, GI: soft, normoactive bowel sounds, : No Renal angle tenderness; EXTREMITIES: No edema, no clubbing, MUSCULOSKELETAL: Left foot in surgical dressing NEURO: Awake; no lateralizing signs. SKIN: No Rash PSYCH; Flat affect Assessment & Plan Assessment/Plan (1) Acute osteomyelitis of left foot: PLAN: Plan Patient is a 63-year-old gentleman with history of osteomyelitis involving the left foot underwent excision of calcaneal bone by podiatry on 10/20/2023 1. Osteomyelitis of the left calcaneus -status post partial excision of the calcaneal bone with application of delta frame external fixator 10/20/2023 cultures sent, consult subsequently placed to ID also requested for PT OT eval and treatment ? 10/22/2023;Patient wound cultures positive for MRSA. Vancomycin added to his therapy starting 10/21/2023. Awaiting ID input ? 10/23/2023;Patient seen appears comfortable at rest. Cultures so far positive for MRSA, corynebacterium stratum as well as Pseudomonas. Remains on Vanco and Zosyn. Seen in consultation by ID noted recommendations reviewed 2. 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 Placed on long acting insulin, Accu-Cheks a.c. and at bedtime and covered with sliding scale insulin 3. Anemia - Secondary to chronic disorder monitoring H&H and transfuse if patient becomes symptomatic or hemoglobin falls below 7 4. Hypertension - Blood pressure controlled, home medications continued with dose adjustmen 5. Dyslipidemia -Patient is on statin therapy, continued at home dose 6. Obesity ?With BMI of 36, weight loss advised 7. Coronary artery disease ?Per history 8. Diabetic polyneuropathy ?Patient is on Lyrica continue 9. Chronic congestive heart failure with preserved ejection fraction ?Stable and euvolemic 10. Obstructive sleep apnea ?CPAP at night 11. Depression with anxiety ?Patient is on fluoxetine did continue 12. GERD ?Patient is on PPI did continue 13. DVT prophylaxis - On enoxaparin 14. Physical deconditioning - Requested for PT OT eval and high school social studies teacher to assist with discharge planning Time spent in the patient's overall evaluation,decision-making process, review of diagnostic data, adjustment of management, discussion with other providers, nursing nursing and ancillary staff involved in patient's care documentation, 35 Minutes Charges/Coding Visit Charges Inpatient E&M: 29532 Subs Hosp L2
[2023-10-23 07:52] VITALS: BP 157/81; PULSE 78; RESP 16; TEMP 37.3; O2SAT 98
[2023-10-23] MEDS: Aspirin E.C. 81 MG Tablet PO (08:02)
[2023-10-23 08:04] LABS: Anion Gap 3 (5-15); BUN 15 mg/dL (7-18); BUN/Creat Ratio 9.6 RATIO (10-20); Calcium,Total 8.3 mg/dL (8.5-10.1); Chloride 108 mmol/L (98-107); Creatinine, Serum 1.57 mg/dL (0.70-1.30); EST Glomerular Filtration Rate 47 mL/min (>60); Est Glom Filt Rate - Afr Amer 57 mL/min (>60); Estimated Creatinine Clearance 49.08 ml/min; Glucose 157 mg/dL (74-106); Potassium 3.5 mmol/L (3.5-5.1); Sodium Level 140 mmol/L (136-145)
[2023-10-23 08:08] LABS: Vancomycin, Random Level 18.6 ug/mL (0.0-15.0)
--- NOTE | 2023-10-23 08:50 | PCM.RX.CS ---
Consult Antibiotic Management Pharmacy has been consulted to manage selected antiobiotic: Vancomycin Type of Intervention Type of Consult: Follow-up Suspected Infection Suspected Infection: Osteomyelitis Labs Labs: Sodium 140 mmol/L (136-145) 10/23/23 06:14 Potassium 3.5 mmol/L (3.5-5.1) 10/23/23 06:14 Chloride 108 mmol/L (98-107) H 10/23/23 06:14 Carbon Dioxide 29.0 mmol/L (21.0-32.0) 10/23/23 06:14 Anion Gap 3 (5-15) L 10/23/23 06:14 BUN 15 mg/dL (7-18) 10/23/23 06:14 Creatinine 1.57 mg/dL (0.70-1.30) H 10/23/23 06:14 Est GFR (MDRD) Af Amer 57 mL/min (>60) L 10/23/23 06:14 Est GFR (MDRD) Non-Af 47 mL/min (>60) L 10/23/23 06:14 BUN/Creatinine Ratio 9.6 RATIO (10-20) L 10/23/23 06:14 Glucose 157 mg/dL (74-106) H 10/23/23 06:14 Vancomycin Trough 32.4 ug/mL (5.0-15.0) H 10/21/23 03:08 Random Vancomycin 18.6 ug/mL (0.0-15.0) H 10/23/23 06:14 Microbiology Microbiology: Microbiology 10/20/23 Unknown Wound - Left Foot Gram Stain - Final 10/20/23 Unknown Wound - Left Foot Wound Culture - Final Corynebacterium striatum 10/20/23 Unknown Wound - Left Foot Anaerobic Culture - Final No anaerobic bacteria isolated. 10/20/23 Unknown Bone - Other Gram Stain - Final 10/20/23 Unknown Bone - Other Wound Culture - Final Meth. resistant Staph. aureus Corynebacterium striatum 10/20/23 Unknown Bone - Other Anaerobic Culture - Final No anaerobic bacteria isolated. 10/20/23 Unknown Tissue - Other Gram Stain - Final 10/20/23 Unknown Tissue - Other Wound Culture - Final Meth. resistant Staph. aureus Corynebacterium striatum 10/20/23 Unknown Tissue - Other Anaerobic Culture - Final No anaerobic bacteria isolated. 10/19/23 16:15 Blood Culture (Wb) - Right Hand Blood Culture - Preliminary No growth in 48 hours. 10/19/23 15:50 Blood Culture (Wb) - Anticubital Left Blood Culture - Preliminary No growth in 48 hours. Goal Trough Goal Trough: 15-20 mcg/mL Pharmacy Plan for Drug Dosing Pharmacy Plan for Drug Dosing: VANCOMYCIN LEVEL RECEIVED Current Vancomycin Dose: Scheduled dosing ON HOLD- last dose was 1g IV x1 10/22 @0956 Number of Doses Received: x1 dose given yesterday, no longer on scheduled dosing Vancomycin Level: 18.6 Hours Since Last Dose: ~20hr Renal Function: 1.57 Renal Function Trend: improved from yesterday, still elevated from admitting renal fxn Lab/Micro: Bone/WCx (+) MRSA, sensitive to vancomycin Vancomycin Plan/Comments: Patient with improved renal function compared to yesterday, trough was within therapeutic goal of 15-20 after a x1 dose. Will be cautious with dosing since renal function is slowly improving. Will give another vancomycin 1000mg IV x1 today and recheck a trough 24hrs from administered dose. If patient is within goal tomorrow and renal function improves/stabilizes, will likely place patient back on scheduled dosing. Pending Level: *RANDOM* level 10/24/23 @0900 Pharmacy Service will continue to monitor and adjust dosing as required.
[2023-10-23] MEDS: Enoxaparin 40 MG/0.4 ML Syringe SC (09:35)
[2023-10-23] MEDS: Insulin Glargine-YFGN 100 UNIT/ML Pen 15 UNIT SC ×2 (09:35→21:52)
[2023-10-23] MEDS: amLODIPine 10 MG Tablet PO ×2 (09:36→21:47)
[2023-10-23] MEDS: Pantoprazole Sodium 40 MG Tablet PO (09:36)
[2023-10-23] MEDS: Finasteride 5 MG Tablet PO (09:36)
[2023-10-23] MEDS: Isosorbide Mononitrate 30 MG Tablet PO (09:37)
[2023-10-23] MEDS: FLUoxetine 20 MG Capsule PO (09:37)
[2023-10-23] MEDS: Fluoxetine HCl 40 MG CAPSULE PO (09:38)
[2023-10-23] MEDS: Pregabalin 75 MG Capsule PO ×2 (09:45→21:44)
[2023-10-23] MEDS: Vancomycin Trough/Random Due 1 LAB MC (09:47)
[2023-10-23 12:40] LABS: Bedside Glucose 205 mg/dL (74-106)
[2023-10-23 13:16] VITALS: O2SAT 94
[2023-10-23 17:00] VITALS: BP 144/74; PULSE 71; RESP 16; TEMP 37.4; O2SAT 98
[2023-10-23 17:22] LABS: Bedside Glucose 223 mg/dL (74-106)
[2023-10-23 20:34] VITALS: BP 152/67; PULSE 71; RESP 16; TEMP 36.6; O2SAT 96
[2023-10-23] MEDS: traZODone 50 MG Tablet 150 MG PO (21:45)
[2023-10-23] MEDS: Atorvastatin Calcium 80 MG Tablet PO (21:45)
[2023-10-23 23:13] LABS: Bedside Glucose 205 mg/dL (74-106)
[2023-10-24] VITALS (8 sets, daily range): BP systolic 131–170; BP diastolic 48–84; PULSE 66–86; RESP 16–18; TEMP 36.6–36.9; O2SAT 93–99
[2023-10-24] MEDS: 0.9% Normal Saline (1000mL) 1,000 ML 100 ML IV ×3 (02:57→23:06)
[2023-10-24] MEDS: Piperacil/Tazobactam 3.375 GM in 0.9% Normal Saline (50mL MB+) 50 ML IV ×3 (05:28→21:24)
[2023-10-24] MEDS: tiZANidine HCl 2 MG Tablet PO (05:41)
[2023-10-24 06:36] LABS: Bedside Glucose 100 mg/dL (74-106)
--- NOTE | 2023-10-24 07:16 | PCM.PN.HOSP ---
Reason for Visit Reason for Visit: Diagnoses Type 2 diabetes mellitus with diabetic polyneuropathy (10/19/23) Type 2 diabetes mellitus with other specified complication (10/19/23) Major depressive disorder, single episode, unspecified (10/19/23) Anxiety disorder, unspecified (10/19/23) Essential (primary) hypertension (10/19/23) Gastro-esophageal reflux disease without esophagitis (10/19/23) Non-pressure chronic ulcer of other part of left foot with necrosis of bone (10/19/23) Other instability, left ankle (10/19/23) Other acute osteomyelitis, left ankle and foot (10/19/23) Unspecified open wound, left foot, initial encounter (10/19/23) shelter (current) use of insulin (10/19/23) Personal history of other endocrine, nutritional and metabolic disease (10/19/23) Presence of coronary angioplasty implant and graft (10/19/23) Subjective Subjective Patient seen per nursing staff had a relatively uneventful night blood pressure control is however not optimal adjustment made to his antihypertensives. Also awaiting insurance precertification prior to [facility] a [facility] Objective Data Objective Data Vital Signs: Vital Signs Temp Pulse Resp BP Pulse Ox O2 Del Method O2 Flow Rate 98.4 F 70 16 170/84 H 97 Nasal Cannula 2 10/24/23 02:58 10/24/23 02:58 10/24/23 02:58 10/24/23 05:30 10/24/23 02:58 10/24/23 02:58 10/24/23 02:58 Oxygen Flow Rate (L/min) 2 Oxygen Delivery Method Nasal Cannula Weight: 113.2 kg Body Mass Index (BMI) 35.8 Intake & Output: Intake and Output for Last 24 Hours 10/22/23 10/23/23 10/24/23 23:59 23:59 23:59 Intake Total 1800 / 1800 2540 / 2840 1450 / 1450 Output Total 900 / 900 1400 / 1900 900 / 900 Balance 900 / 900 1140 / 940 550 / 550 Medical Nutrition Assessment Dietitian: Malnutrition Criteria Met Start: 10/20/23 09:35 Freq: Status: Active Protocol: Document 10/20/23 09:35 DAVID (Rec: 10/20/23 09:35 [id number]) Nutrition Malnutrition Evidence of Malnutrition Exists Yes Malnutrition (severe): Acute Illness/Injury Evidenced By Suboptimal Energy Intake ( Severe),Weight Loss (Severe) Clinical Problem Acute Disease or Injury Related Malnutrition Etiology severe, acute malnutrition related to inadequate energy intake w/ dislike of SNF food Signs/Symptoms as evidenced by unintentional 14.3kg/11% wt loss, estimated PO intake meeting <75% of estimated energy needs > 1 month Status Active Problem Recommendation Dietitian Recommendations/Changes recommend advance diet as tolerated to Carbohydrate Controlled; continue Glucerna 120mL 4x/day given evidence of malnutrition. Will add Aubrye BID for wounds. Lab / Micro Data 10/23/23 06:14 10/23/23 06:14 Labs: Laboratory Results - last 24 hr 10/23/23 06:14: WBC 10.5, RBC 3.69 L, Hgb 10.1 L, Hct 31.8 L, MCV 86.2, MCH 27.4, MCHC 31.8 L, RDW Std Deviation 44.7 H, RDW Coeff of James 14.3, Plt Count 210, MPV 10.9, Immature Gran % (Auto) 0.500, Neut % (Auto) 68.8, Lymph % (Auto) 18.2 L, [place] % (Auto) 10.9 H, Eos % (Auto) 1.3, Baso % (Auto) 0.3, Absolute Neuts (auto) 7.2, Absolute Lymphs (auto) 1.92, Nucleated RBC % 0, Sodium 140, Potassium 3.5, Chloride 108 H, Carbon Dioxide 29.0, Anion Gap 3 L, BUN 15, Creatinine 1.57 H, Estim Creat Clear Calc 49.08, Est GFR (MDRD) Af Amer 57 L, Est GFR (MDRD) Non-Af 47 L, BUN/Creatinine Ratio 9.6 L, Glucose 157 H, Calcium 8.3 L, Random Vancomycin 18.6 H 10/23/23 12:15: POC Glucose 205 H 10/23/23 16:48: POC Glucose 223 H 10/23/23 21:50: POC Glucose 205 H 10/24/23 06:16: POC Glucose 100 Micro: Microbiology 10/20/23 Unknown Wound - Left Foot Gram Stain - Final 10/20/23 Unknown Wound - Left Foot Wound Culture - Final Corynebacterium striatum 10/20/23 Unknown Wound - Left Foot Anaerobic Culture - Final No anaerobic bacteria isolated. 10/20/23 Unknown Bone - Other Gram Stain - Final 10/20/23 Unknown Bone - Other Wound Culture - Final Meth. resistant Staph. aureus Corynebacterium striatum 10/20/23 Unknown Bone - Other Anaerobic Culture - Final No anaerobic bacteria isolated. 10/20/23 Unknown Tissue - Other Gram Stain - Final 10/20/23 Unknown Tissue - Other Wound Culture - Final Meth. resistant Staph. aureus Corynebacterium striatum 10/20/23 Unknown Tissue - Other Anaerobic Culture - Final No anaerobic bacteria isolated. 10/19/23 16:15 Blood Culture (Wb) - Right Hand Blood Culture - Preliminary No growth in 48 hours. 10/19/23 15:50 Blood Culture (Wb) - Anticubital Left Blood Culture - Preliminary No growth in 48 hours. Physical Exam Narrative GENERAL: cooperative HEENT: Atraumatic; normocephalic EYES; Anicteric, Normal Conjunctiva NECK; supple, normal thyroid, RESPIRATORY: Diminished to auscultation CARDIOVASCULAR: Regular S1 S2, GI: soft, normoactive bowel sounds, : No Renal angle tenderness; EXTREMITIES: No edema, no clubbing, MUSCULOSKELETAL: Left foot in surgical dressing NEURO: Awake; no lateralizing signs. SKIN: No Rash PSYCH; Flat affect Assessment & Plan Assessment/Plan (1) Acute osteomyelitis of left foot: PLAN: Plan Patient is a 63-year-old gentleman with history of osteomyelitis involving the left foot underwent excision of calcaneal bone by podiatry on 10/20/2023 1. Osteomyelitis of the left calcaneus -status post partial excision of the calcaneal bone with application of delta frame external fixator 10/20/2023 cultures sent, consult subsequently placed to ID also requested for PT OT eval and treatment ? 10/22/2023;Patient wound cultures positive for MRSA. Vancomycin added to his therapy starting 10/21/2023. Awaiting ID input ? 10/23/2023;Patient seen appears comfortable at rest. Cultures so far positive for MRSA, corynebacterium stratum as well as Pseudomonas. Remains on Vanco and Zosyn. Seen in consultation by ID noted recommendations reviewed 2. 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 Placed on long acting insulin, Accu-Cheks a.c. and at bedtime and covered with sliding scale insulin 3. Anemia - Secondary to chronic disorder monitoring H&H and transfuse if patient becomes symptomatic or hemoglobin falls below 7 4. Hypertension - Blood pressure controlled, home medications continued with dose adjustment ? 10/24/2023 adjustment made to patient antihypertensive regimen 5. Dyslipidemia -Patient is on statin therapy, continued at home dose 6. Obesity ?With BMI of 36, weight loss advised 7. Coronary artery disease ?Per history 8. Diabetic polyneuropathy ?Patient is on Lyrica continue 9. Chronic congestive heart failure with preserved ejection fraction ?Stable and euvolemic 10. Obstructive sleep apnea ?CPAP at night 11. Depression with anxiety ?Patient is on fluoxetine did continue 12. GERD ?Patient is on PPI did continue 13. DVT prophylaxis - On enoxaparin 14. Physical deconditioning - Requested for PT OT eval and social worker delinquency prevention to assist with discharge planning Time spent in the patient's overall evaluation,decision-making process, review of diagnostic data, adjustment of management, discussion with other providers, nursing nursing and ancillary staff involved in patient's care documentation, 35 Minutes Charges/Coding Visit Charges Inpatient E&M: 95305 Subs Hosp L2
[2023-10-24 09:34] LABS: Absolute Lymphocyte Count 2.09 X10^3/uL (0.83-4.51); Absolute Neutrophil Count 7.8 X10^3/uL (2.0-7.7); Basophil# 0.08 X10^3/uL; Basophil% 0.7 % (0-1); Eosinophil# 0.27 X10^3/uL; Eosinophils% 2.3 % (0-5); Hematocrit 30.8 % (40-54); Hemoglobin 9.6 g/dL (13.0-16.5); Lymphocyte # 2.09 X10^3/ul (0.83-4.51); Lymphocyte % 18.1 % (19-41); Mean Corp Hgb Conc 31.2 g/dL (32-36); Mean Corpuscular Hgb 26.4 pg (27.0-32.0); Mean Corpuscular Volume 84.8 fL (80-94); Mean Platelet Vol. 10.4 fl (6.2-12.0); Monocyte# 1.25 X10^3/uL; Monocyte% 10.9 % (0-10); NRBC Flagged by Analyzer 0 % (0-5); Neutrophil # 7.78 X10^3/uL (2.7-7.7); Neutrophil % 67.6 % (47-70); Platelet Count 196 K/mm3 (150-450); RBC Distribution Width CV 14.3 % (11.6-14.6); RBC Distribution Width SD 44.4 fl (35.1-43.9); Red Blood Count 3.63 M/mm3 (4.6-6.2); White Blood Count 11.5 K/mm3 (4.4-11.0)
[2023-10-24] MEDS: Aspirin E.C. 81 MG Tablet PO (09:37)
[2023-10-24] MEDS: Isosorbide Mononitrate 30 MG Tablet PO (09:38)
[2023-10-24] MEDS: Insulin Glargine-YFGN 100 UNIT/ML Pen 15 UNIT SC ×2 (09:38→21:28)
[2023-10-24] MEDS: Enoxaparin 40 MG/0.4 ML Syringe SC (09:39)
[2023-10-24] MEDS: amLODIPine 10 MG Tablet PO (09:40)
[2023-10-24] MEDS: Finasteride 5 MG Tablet PO (09:41)
[2023-10-24] MEDS: Fluoxetine HCl 40 MG CAPSULE PO (09:41)
[2023-10-24] MEDS: Pantoprazole Sodium 40 MG Tablet PO (09:41)
[2023-10-24] MEDS: FLUoxetine 20 MG Capsule PO (09:41)
[2023-10-24] MEDS: hydrALAZINE 25 MG Tablet PO ×3 (09:46→21:24)
[2023-10-24] MEDS: Pregabalin 75 MG Capsule PO ×2 (09:47→21:24)
[2023-10-24] MEDS: Vancomycin Trough/Random Due 1 LAB MC (09:51)
[2023-10-24 10:09] LABS: Anion Gap 1 (5-15); BUN 16 mg/dL (7-18); BUN/Creat Ratio 10.1 RATIO (10-20); Calcium,Total 8.2 mg/dL (8.5-10.1); Chloride 111 mmol/L (98-107); Creatinine, Serum 1.59 mg/dL (0.70-1.30); EST Glomerular Filtration Rate 47 mL/min (>60); Est Glom Filt Rate - Afr Amer 57 mL/min (>60); Estimated Creatinine Clearance 48.46 ml/min; Glucose 116 mg/dL (74-106); Potassium 3.9 mmol/L (3.5-5.1); Sodium Level 142 mmol/L (136-145)
[2023-10-24 10:12] LABS: Vancomycin, Random Level 16.6 ug/mL (0.0-15.0)
--- NOTE | 2023-10-24 10:31 | PCM.RX.CS ---
Consult Antibiotic Management Pharmacy has been consulted to manage selected antiobiotic: Vancomycin Type of Intervention Type of Consult: Follow-up Suspected Infection Suspected Infection: Osteomyelitis Labs Labs: Sodium 142 mmol/L (136-145) 10/24/23 09:14 Potassium 3.9 mmol/L (3.5-5.1) 10/24/23 09:14 Chloride 111 mmol/L (98-107) H 10/24/23 09:14 Carbon Dioxide 30.0 mmol/L (21.0-32.0) 10/24/23 09:14 Anion Gap 1 (5-15) L 10/24/23 09:14 BUN 16 mg/dL (7-18) 10/24/23 09:14 Creatinine 1.59 mg/dL (0.70-1.30) H 10/24/23 09:14 Est GFR (MDRD) Af Amer 57 mL/min (>60) L 10/24/23 09:14 Est GFR (MDRD) Non-Af 47 mL/min (>60) L 10/24/23 09:14 BUN/Creatinine Ratio 10.1 RATIO (10-20) 10/24/23 09:14 Glucose 116 mg/dL (74-106) H 10/24/23 09:14 Vancomycin Trough 32.4 ug/mL (5.0-15.0) H 10/21/23 03:08 Random Vancomycin 16.6 ug/mL (0.0-15.0) H 10/24/23 09:14 Microbiology Microbiology: Microbiology 10/20/23 Unknown Wound - Left Foot Gram Stain - Final 10/20/23 Unknown Wound - Left Foot Wound Culture - Final Corynebacterium striatum 10/20/23 Unknown Wound - Left Foot Anaerobic Culture - Final No anaerobic bacteria isolated. 10/20/23 Unknown Bone - Other Gram Stain - Final 10/20/23 Unknown Bone - Other Wound Culture - Final Meth. resistant Staph. aureus Corynebacterium striatum 10/20/23 Unknown Bone - Other Anaerobic Culture - Final No anaerobic bacteria isolated. 10/20/23 Unknown Tissue - Other Gram Stain - Final 10/20/23 Unknown Tissue - Other Wound Culture - Final Meth. resistant Staph. aureus Corynebacterium striatum 10/20/23 Unknown Tissue - Other Anaerobic Culture - Final No anaerobic bacteria isolated. 10/19/23 16:15 Blood Culture (Wb) - Right Hand Blood Culture - Preliminary No growth in 48 hours. 10/19/23 15:50 Blood Culture (Wb) - Anticubital Left Blood Culture - Preliminary No growth in 48 hours. Goal Trough Goal Trough: 15-20 mcg/mL Pharmacy Plan for Drug Dosing Pharmacy Plan for Drug Dosing: VANCOMYCIN LEVEL RECEIVED Current Vancomycin Dose: Scheduled dosing ON HOLD- patient had 1000mg IV x1 ordered and administered yesterday, 10/23/23, @0932 Number of Doses Received: several since starting Vancomycin Level: 16.6 Hours Since Last Dose: ~23.75hr Renal Function: 1.59 Renal Function Trend: stable from yesterday's SCr Lab/Micro: WCx/ BCx (+) MRSA Vancomycin Plan/Comments: Patient had a random trough drawn which resulted in a value of 16.6 (goal 15-20). It appears patient's renal function has stabilized. the patient has now had 2 doses of 1000mg IV with 2 random levels drawn which were both within trough goal. Will start patient back on scheduled dosing at this time. Will start patient on vancomycin 1000mg IV Q24h to start today 10/24 @1100 Pending Level: 10/26/23 @1030, prior to 3rd dose of newly scheduled regimen Pharmacy Service will continue to monitor and adjust dosing as required.
--- NOTE | 2023-10-24 11:56 | PCM.PROGNOTE ---
Subjective Subjective No changes overnight, pain controlled, no constitutional symptoms. Bleeding resolved. Objective Data Objective Data Vital Signs: Vital Signs Temp Pulse Resp BP Pulse Ox O2 Del Method O2 Flow Rate 98.1 F 66 16 131/72 H 99 Nasal Cannula 2 10/24/23 09:29 10/24/23 09:46 10/24/23 09:29 10/24/23 09:29 10/24/23 09:29 10/24/23 09:29 10/24/23 09:29 Oxygen Flow Rate (L/min) 2 Oxygen Delivery Method Nasal Cannula Weight: 113.2 kg Body Mass Index (BMI) 35.8 Intake & Output: Intake and Output for Last 24 Hours 10/22/23 10/23/23 10/24/23 23:59 23:59 23:59 Intake Total 1800 / 1800 2540 / 2840 1500 / 1500 Output Total 900 / 900 1400 / 1900 900 / 900 Balance 900 / 900 1140 / 940 600 / 600 Medical Nutrition Assessment Dietitian: Malnutrition Criteria Met Start: 10/20/23 09:35 Freq: Status: Active Protocol: Document 10/20/23 09:35 AG (Rec: 10/20/23 09:35 [id number]) Nutrition Malnutrition Evidence of Malnutrition Exists Yes Malnutrition (severe): Acute Illness/Injury Evidenced By Suboptimal Energy Intake ( Severe),Weight Loss (Severe) Clinical Problem Acute Disease or Injury Related Malnutrition Etiology severe, acute malnutrition related to inadequate energy intake w/ dislike of SNF food Signs/Symptoms as evidenced by unintentional 14.3kg/11% wt loss, estimated PO intake meeting <75% of estimated energy needs > 1 month Status Active Problem Recommendation Dietitian Recommendations/Changes recommend advance diet as tolerated to Carbohydrate Controlled; continue Glucerna 120mL 4x/day given evidence of malnutrition. Will add Aubrey BID for wounds. Lab / Micro Data 10/24/23 09:14 10/24/23 09:14 Labs: Laboratory Results - last 24 hr 10/23/23 12:15: POC Glucose 205 H 10/23/23 16:48: POC Glucose 223 H 10/23/23 21:50: POC Glucose 205 H 10/24/23 06:16: POC Glucose 100 10/24/23 09:14: WBC 11.5 H, RBC 3.63 L, Hgb 9.6 L, Hct 30.8 L, MCV 84.8, MCH 26.4 L, MCHC 31.2 L, RDW Std Deviation 44.4 H, RDW Coeff of James 14.3, Plt Count 196, MPV 10.4, Immature Gran % (Auto) 0.400, Neut % (Auto) 67.6, Lymph % (Auto) 18.1 L, [place] % (Auto) 10.9 H, Eos % (Auto) 2.3, Baso % (Auto) 0.7, Absolute Neuts (auto) 7.8 H, Absolute Lymphs (auto) 2.09, Nucleated RBC % 0, Sodium 142, Potassium 3.9, Chloride 111 H, Carbon Dioxide 30.0, Anion Gap 1 L, BUN 16, Creatinine 1.59 H, Estim Creat Clear Calc 48.46, Est GFR (MDRD) Af Amer 57 L, Est GFR (MDRD) Non-Af 47 L, BUN/Creatinine Ratio 10.1, Glucose 116 H, Calcium 8.2 L, Random Vancomycin 16.6 H Micro: Microbiology 10/20/23 Unknown Wound - Left Foot Gram Stain - Final 10/20/23 Unknown Wound - Left Foot Wound Culture - Final Corynebacterium striatum 10/20/23 Unknown Wound - Left Foot Anaerobic Culture - Final No anaerobic bacteria isolated. 10/20/23 Unknown Bone - Other Gram Stain - Final 10/20/23 Unknown Bone - Other Wound Culture - Final Meth. resistant Staph. aureus Corynebacterium striatum 10/20/23 Unknown Bone - Other Anaerobic Culture - Final No anaerobic bacteria isolated. 10/20/23 Unknown Tissue - Other Gram Stain - Final 10/20/23 Unknown Tissue - Other Wound Culture - Final Meth. resistant Staph. aureus Corynebacterium striatum 10/20/23 Unknown Tissue - Other Anaerobic Culture - Final No anaerobic bacteria isolated. 10/19/23 16:15 Blood Culture (Wb) - Right Hand Blood Culture - Preliminary No growth in 48 hours. 10/19/23 15:50 Blood Culture (Wb) - Anticubital Left Blood Culture - Preliminary No growth in 48 hours. Physical Exam Narrative intact Delta frame external fixation device to left lower extermity tibial, calcaneal and 1st metatarsal pin sites intact. Vessel loop closure intact to posterior heel with combination incisoin/full thickness wound down to bone present, no obvious acute signs of infection no sign of DVT, no change in NV status Const alert and oriented x3 Assessment & Plan Assessment/Plan (1) Non-pressure chronic ulcer of other part of left foot with necrosis of bone: PLAN: Exam performed Dressing change pin sites intact vessel closure posterior heel wound intact wound appears healthy granular resolved bleeding noted. Bone culture + for MRSA Recommend ID for antibiotic management Recommend SNF for nonweightbearing and wound care We dressed wound site with Betadine wet-to-dry pin sites with Betadine Adaptic as well as incisional site with Betadine Adaptic 4 x 4's Kerlix and New bandage - next dressing change in 3 days 10/27 (if still in house) Will continue to follow closely (2) Acute osteomyelitis of left foot: (3) Non healing left heel wound: (4) Hx of type 2 diabetes mellitus:
[2023-10-24] MEDS: Insulin Lispro 100 UNIT/ML INSULN.PEN SC ×3 (11:58→21:27)
[2023-10-24] MEDS: Vancomycin IV 1,000 MG/200 ML BAG 200 MG IV (11:59)
[2023-10-24 12:22] LABS: Bedside Glucose 166 mg/dL (74-106)
[2023-10-24] MEDS: LORazepam 0.5 MG Tablet PO (14:45)
[2023-10-24] MEDS: Senna/Docusate Sodium 1 Tablet 2 TABLET PO (14:46)
[2023-10-24] MEDS: Menthol/Lanolin/Calamine/Znox 113 GM Tube 1 APPLIC TOPICAL ×2 (14:48→21:24)
[2023-10-24 17:09] LABS: Bedside Glucose 221 mg/dL (74-106)
[2023-10-24] MEDS: Atorvastatin Calcium 80 MG Tablet PO (21:24)
[2023-10-24] MEDS: traZODone 50 MG Tablet 150 MG PO (21:24)
[2023-10-24 21:54] LABS: Bedside Glucose 202 mg/dL (74-106)
[2023-10-25] VITALS (7 sets, daily range): BP systolic 135–155; BP diastolic 62–90; PULSE 60–82; RESP 18; TEMP 36.6–37.1; O2SAT 95–99
[2023-10-25] MEDS: Menthol/Lanolin/Calamine/Znox 113 GM Tube 1 APPLIC TOPICAL ×3 (06:38→21:36)
[2023-10-25] MEDS: hydrALAZINE 25 MG Tablet PO ×3 (06:38→21:36)
[2023-10-25] MEDS: Piperacil/Tazobactam 3.375 GM in 0.9% Normal Saline (50mL MB+) 50 ML IV (06:38)
[2023-10-25 06:43] LABS: Absolute Lymphocyte Count 2.28 X10^3/uL (0.83-4.51); Absolute Neutrophil Count 6.5 X10^3/uL (2.0-7.7); Basophil# 0.06 X10^3/uL; Basophil% 0.6 % (0-1); Eosinophil# 0.26 X10^3/uL; Eosinophils% 2.5 % (0-5); Hematocrit 30.2 % (40-54); Hemoglobin 9.7 g/dL (13.0-16.5); Lymphocyte # 2.28 X10^3/ul (0.83-4.51); Lymphocyte % 22.3 % (19-41); Mean Corp Hgb Conc 32.1 g/dL (32-36); Mean Corpuscular Hgb 27.2 pg (27.0-32.0); Mean Corpuscular Volume 84.8 fL (80-94); Mean Platelet Vol. 10.5 fl (6.2-12.0); Monocyte# 1.05 X10^3/uL; Monocyte% 10.3 % (0-10); NRBC Flagged by Analyzer 0 % (0-5); Neutrophil # 6.52 X10^3/uL (2.7-7.7); Neutrophil % 63.8 % (47-70); Platelet Count 200 K/mm3 (150-450); RBC Distribution Width CV 14.4 % (11.6-14.6); RBC Distribution Width SD 44.6 fl (35.1-43.9); Red Blood Count 3.56 M/mm3 (4.6-6.2); White Blood Count 10.2 K/mm3 (4.4-11.0)
[2023-10-25 07:04] LABS: Anion Gap 2 (5-15); BUN 14 mg/dL (7-18); BUN/Creat Ratio 9.4 RATIO (10-20); Calcium,Total 8.5 mg/dL (8.5-10.1); Chloride 112 mmol/L (98-107); Creatinine, Serum 1.49 mg/dL (0.70-1.30); EST Glomerular Filtration Rate 50 mL/min (>60); Est Glom Filt Rate - Afr Amer 61 mL/min (>60); Estimated Creatinine Clearance 51.72 ml/min; Glucose 82 mg/dL (74-106); Potassium 3.7 mmol/L (3.5-5.1); Sodium Level 143 mmol/L (136-145)
[2023-10-25 07:16] LABS: Bedside Glucose 84 mg/dL (74-106)
--- NOTE | 2023-10-25 08:18 | CASEMGMT ---
Discharge Planning Requested updates sent to [facility] via [facility]. Nuria Singh, Discharge Planning Asst.
[2023-10-25] MEDS: amLODIPine 10 MG Tablet PO (09:43)
[2023-10-25] MEDS: FLUoxetine 20 MG Capsule PO (09:43)
[2023-10-25] MEDS: Isosorbide Mononitrate 30 MG Tablet PO (09:43)
[2023-10-25] MEDS: Enoxaparin 40 MG/0.4 ML Syringe SC (09:44)
[2023-10-25] MEDS: Aspirin E.C. 81 MG Tablet PO (09:44)
[2023-10-25] MEDS: 0.9% Normal Saline (1000mL) 1,000 ML 100 ML IV ×2 (09:44→21:33)
[2023-10-25] MEDS: Pantoprazole Sodium 40 MG Tablet PO (09:45)
[2023-10-25] MEDS: Finasteride 5 MG Tablet PO (09:45)
[2023-10-25] MEDS: Fluoxetine HCl 40 MG CAPSULE PO (09:46)
[2023-10-25] MEDS: Pregabalin 75 MG Capsule PO ×2 (09:52→21:33)
--- NOTE | 2023-10-25 10:29 | WOUNDNOTE ---
Dressing to the left foot is D&I. orders for dressing to remain in place until 10/27/23. pt states he is hoping to get to the [facility] soon and plans to be home with his family by November 12 per pt.
[2023-10-25] MEDS: Vancomycin IV 1,000 MG/200 ML BAG 200 MG IV (11:34)
[2023-10-25 11:57] LABS: Bedside Glucose 107 mg/dL (74-106)
--- NOTE | 2023-10-25 13:32 | PCM.PN.ID ---
Physical Exam Narrative Feeling ok, no fever, mild nausea Const alert and no apparent distress Resp normal air movement and clear to auscultation bilaterally Cardio regular rate and regular rhythm GI soft to palpation, non-tender and non-distended Skin Skin Narrative: L foot wrapped ID ID: Route of nutrition/ use of supplements: [] Nutritional Intake: [] IV Site: [] Juarez Catheter: [] Assessment & Plan Assessment/Plan (1) Acute osteomyelitis of left foot: PLAN: Now s/p OR 10/20/[address] Hess for I&D, partial excision calcaneal bone, and placement of external fixator. Cxs so far showing MRSA and diphtheroids. On vanc/zosyn. Had growth of pseudomonas as well recently. Will order picc and 6 weeks iv vanc, stop date 12/01/23 with weekly labs and 2 weeks po cipro. 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
--- NOTE | 2023-10-25 14:15 | CASEMGMT ---
Discharge Planning IV script and ID note sent to [facility] via [facility]. Nuria Singh, Discharge Planning Asst.
--- NOTE | 2023-10-25 14:16 | NURSING ---
This RN called [facility] at this time. Copy Coordinator for [facility] will notify of a time that an RN will come place the PICC line.
--- NOTE | 2023-10-25 14:20 | PHA.DC_ITS ---
Pharmacy IN Med Reconciliation Pharmacy Service has performed discharge medication reconciliation for this patient. The patient's discharge medication list was reviewed for discrepancies and discrepancies were resolved. Medications at Discharge Home Medications gauze bandage 4 X 4 (Bordered Gauze) #14 ea 07/03/22 walker (Ultra-Light Rollator misc) #1 ea 07/21/22 pen needle, diabetic 33 gauge x 5/16 #200 ea 12/02/22 fluoxetine 20 mg capsule 20 mg PO DAILY ANXIETY 03/23/23 melatonin 3 mg tablet 3 mg PO QHS INSOMNIA 03/23/23 atorvastatin 80 mg tablet 80 mg PO QHS CHOLESTEROL 05/25/23 fluoxetine 40 mg capsule 40 mg PO DAILY ANXIETY 05/25/23 pantoprazole 40 mg tablet,delayed release 40 mg PO DAILY ACID REFLUX 05/25/23 trazodone 150 mg tablet 150 mg PO QHS INSOMNIA 05/25/23 Wheelchair #1 ea 07/23/23 Lift Chair #1 ea 08/06/23 bisacodyl 10 mg rectal suppository 10 mg AR DAILY PRN CONSTIPATION 08/28/23 amlodipine 10 mg tablet 10 mg PO BID BLOOD PRESSURE 10/19/23 ascorbic acid (vitamin C) 500 mg tablet 500 mg PO BID SUPPLEMENT 10/19/23 aspirin 81 mg tablet,delayed release (Ecotrin Low Strength) 81 mg PO DAILY HEART HEALTH 10/19/23 clopidogrel 75 mg tablet 75 mg PO QHS BLOOD THINNER 10/19/23 glimepiride 2 mg tablet 2 mg PO BID DIABETES 10/19/23 haloperidol lactate 2 mg/mL oral concentrate 1 mg PO Q6H PRN AGITATION 10/19/23 hydroxyzine HCl 25 mg tablet 50 mg PO QHS 10/19/23 hyoscyamine sulfate 0.125 mg tablet 0.125 mg PO Q4H PRN BLADDER 10/19/23 insulin detemir U-100 100 unit/mL (3 mL) subcutaneous pen (Levemir FlexPen) 25 unit subcut BID DIABETES 10/19/23 isosorbide mononitrate 30 mg tablet,extended release 24 hr 30 mg PO DAILY HEART 10/19/23 lorazepam 0.5 mg tablet 0.5 mg PO Q4H PRN ANXIETY/AGITATION 10/19/23 magnesium 250 mg tablet 250 mg PO DAILY SUPPLEMENT 10/19/23 metoclopramide HCl 5 mg tablet 5 mg PO TID INTESTINES 10/19/23 nitroglycerin 0.4 mg sublingual tablet 0.4 mg sublingual Q5M PRN CHEST PAIN 10/19/23 oxycodone 5 mg tablet 5 mg PO Q4H PRN PAIN (PAIN SCORE 6-10) 10/19/23 pregabalin 75 mg capsule 75 mg PO Q12H PRN PAIN 10/19/23 sennosides 8.6 mg-docusate sodium 50 mg tablet (Senna Plus) 1 tab-cap PO BID CONSTIPATION 10/19/23 tizanidine 2 mg tablet 2 mg PO Q8H PRN MUSCLE SPASMS 10/19/23 flash glucose sensor ([employer]ago 14 Day Sensor kit) 10/20/23 ciprofloxacin HCl 500 mg tablet 500 mg PO BID 14 days #28 tabs 10/25/23 vancomycin 1 gram/200 mL in dextrose 5 % intravenous piggyback 1,000 mg IV Q24H 37 days #7,400 mL 10/25/23
--- NOTE | 2023-10-25 15:27 | PCM.TXEXTCAR ---
Diet Diet Order/Speech Therapy: 10/25/23 09:52 Diet: Carbohydrate Controlled Type of Dietary Supplement:: Magic Cup Dessert Is pt able to select menu?: Yes Diet Comments: rod or orange magic cup w/ meals Routine Orders/Code Status Enema Type: Fleetz Enema Frequency: Daily PRN Suppository Type: Dulcolax 10mg Suppository Frequency: Daily PRN O2 Frequency: PRN Keep PO Greater than or Equal to (%): 90 Wound(s) LEFT HEEL: Wound Type: Neuropathic/Diabetic Foot Ulcer Dressing Change: well padded dry dressing R buttock: Wound Type: healed pressure ulcer? LEFT LOWER LEG: Wound Type: Surgical Incision Therapies Weight Bearing: Weight bearing as tolerated Physical Therapy: Eval and Treat Occupational Therapy: Eval and Treat Problem/Diagnosis (1) Acute osteomyelitis of left foot: Status: Acute Code(s): M86.172 - Other acute osteomyelitis, left ankle and foot (2) Type 2 diabetes mellitus with diabetic polyneuropathy: Status: Chronic Code(s): E11.42 - Type 2 diabetes mellitus with diabetic polyneuropathy Allergies/Procedures Done in Hospital Allergies allopurinol Adverse Reaction (Verified 10/19/23 14:19) Vomiting Influenza Virus Vaccines Adverse Reaction (Verified 10/19/23 14:19) Vomiting pneumococcal vaccine Adverse Reaction (Verified 10/19/23 14:19) Vomiting Procedures: None Type of Care/Length of Stay Estimated LOS: More Than 30 Days Type of Care Needed: Skilled Rehab Potential: Fair Prognosis: Fair Additional Orders/Day of Discharge Day of Discharge: 10/25/23 Dietary and Speech Recommendations Dietitian Recommendations/Changes: will adjust diet to Carbohydrate Controlled; will d/c Glucerna 120mL 4x/day and Aubrey BID d/t pt refusal. Continue Magic Cup w/ meals per pt request. Discharge Plan Admission Admit Date/Time: 10/19/23 16:55 Primary Reason for Your Visit: osteomyelitis of the left heel Attending Provider: Nona Salcedo Primary Care Provider: Doretha Brown Consulting Providers: Lexy Christy; Jason Hess; Raheem Corona; Rubio Miller; Sean Linder Instructions Patient Instructions: Osteomyelitis Dc Additional Instructions / Restrictions: Upon discharge to SNF patient will receive every third day dressing changes to left lower extremity consisting of cleansing of pin sites with alcohol versus peroxide application of Betadine paint to pin sites as well as wound and incisional site to posterior heel application of overlying Adaptic 4 x 4's Kerlix followed by lightly wrapped New bandage for gentle compression. Discharge Orders/Prescriptions Prescriptions: New vancomycin in dextrose 5 % 1 gram/200 mL Piggyback 1,000 mg IV Q24H 37 Days Qty: 7400 0RF Rx Instructions: stop date 12/01/23. dx: foot osteo weekly bmp, cbc, vanc trough, and ESR. Fax to [phone] ciprofloxacin HCl 500 mg Tablet 500 mg PO BID 14 Days Qty: 28 0RF oxycodone 5 mg tablet 5 mg PO Q6H PRN (Reason: pain) 3 Days Qty: 12 0RF Continued (DME) Ultra-Light Rollator Misc See Rx Instructions .Route Qty: 1 2RF Rx Instructions: As directed (DME) pen needle, diabetic 33 gauge x 5/16 needle See Rx Instructions .Route Qty: 200 3RF Rx Instructions: As directed melatonin 3 mg tablet 3 mg PO QHS fluoxetine 20 mg capsule 20 mg PO DAILY Patient Comments: TAKE ONE 20MG AND ONE 40MG CAPSULE BY MOUTH ONCE DAILY FOR A TOTAL DOSE OF 60MG (DME) Lift Chair See Rx Instructions .Route .MEDSUPPLY Qty: 1 0RF Rx Instructions: As directed (DME) gauze bandage [Bordered Gauze] 4 X 4 bandage See Rx Instructions .ROUTE .MEDSUPPLY Qty: 14 2RF Rx Instructions: Daily cleanse left foot wound with soap and water, dry and apply Betadine solution and apply clean dressing fluoxetine 40 mg capsule 40 mg PO DAILY Patient Comments: TAKE ONE 20MG AND ONE 40MG CAPSULE BY MOUTH ONCE DAILY FOR A TOTAL DOSE OF 60MG trazodone 150 mg tablet 150 mg PO QHS pantoprazole 40 mg tablet,delayed release (DR/EC) 40 mg PO DAILY atorvastatin 80 mg tablet 80 mg PO QHS bisacodyl 10 mg suppository 10 mg MI DAILY PRN (Reason: CONSTIPATION ) amlodipine 10 mg tablet 10 mg PO BID aspirin [Ecotrin Low Strength] 81 mg tablet,delayed release (DR/EC) 81 mg PO DAILY lorazepam 0.5 mg tablet 0.5 mg PO Q4H PRN (Reason: ANXIETY/AGITATION ) glimepiride 2 mg tablet 2 mg PO BID haloperidol lactate 2 mg/mL concentrate 1 mg PO Q6H PRN (Reason: AGITATION ) hydroxyzine HCl 25 mg tablet 50 mg PO QHS Levemir FlexPen 100 unit/mL (3 mL) insulin pen 25 unit SUBCUT BID magnesium 250 mg tablet 250 mg PO DAILY hyoscyamine sulfate 0.125 mg tablet 0.125 mg PO Q4H PRN (Reason: BLADDER) isosorbide mononitrate 30 mg tablet extended release 24 hr 30 mg PO DAILY metoclopramide HCl 5 mg tablet 5 mg PO TID nitroglycerin 0.4 mg tablet, sublingual 0.4 mg sublingual Q5M PRN (Reason: CHEST PAIN ) oxycodone 5 mg tablet 5 mg PO Q4H PRN (Reason: PAIN (PAIN SCORE 6-10)) sennosides-docusate sodium [Senna Plus] 8.6-50 mg tablet 1 tab-cap PO BID tizanidine 2 mg tablet 2 mg PO Q8H PRN (Reason: MUSCLE SPASMS ) ascorbic acid (vitamin C) 500 mg tablet 500 mg PO BID clopidogrel 75 mg tablet 75 mg PO QHS pregabalin 75 mg Capsule 75 mg PO Q12H PRN (Reason: PAIN ) (DME) PaletteAppe 14 Day Sensor Kit See Rx Instructions .Route Rx Instructions: As directed; check BS 3x daily for DMII (DME) Wheelchair See Rx Instructions .Route .MEDSULY Qty: 1 0RF Rx Instructions: As directed Discontinued ciprofloxacin HCl 750 mg tablet 750 mg PO BID Patient Comments: TAKE ONE TABLET BY MOUTH TWICE DAILY FOR 7 DAYS. 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
--- NOTE | 2023-10-25 15:28 | PCM.DC.SUM ---
Providers Date of Admission: 10/19/23 Date of Discharge: 10/25/23 Primary Care Physician: Dr. 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 pump installer Routine Comment: Reason for Consult:: left heel wound Consult: Podiatry Routine Consulting Provider: Jason Hess Reason for Consult: Sent to ED for osteo on xray and admit for surgery EMERGENT Consult: No MD Notified: Yes Date Notified: 10/19/23 Time Notified: 17:06 Method of Notification: Deshawn has seen patient 10/20/23 19:29 Consult: Infectious Disease Routine Consulting Provider: Raheem Corona Reason for Consult: Osteomyelitis of the left heel EMERGENT Consult: No MD Notified: Yes Date Notified: 10/20/23 Time Notified: 19:29 Method of Notification: Verbal Reason For Visit: ?OSTEO OF HEEL Diagnosis Discharge Diagnosis (1) Acute osteomyelitis of left foot: Status: Acute Code(s): M86.172 - Other acute osteomyelitis, left ankle and foot (2) Type 2 diabetes mellitus with diabetic polyneuropathy: Status: Chronic Code(s): E11.42 - Type 2 diabetes mellitus with diabetic polyneuropathy Qualifiers: 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: with residential use Qualified Code(s): E11.42 - Type 2 diabetes mellitus with diabetic polyneuropathy; Z79.4 - intermodal customer service (current) use of insulin Medications at Discharge Home Medications gauze bandage 4 X 4 (Bordered Gauze) #14 ea 07/03/22 walker (Ultra-Light Rollator mis) #1 ea 07/21/22 pen needle, diabetic 33 gauge x 5/16 #200 ea 12/02/22 fluoxetine 20 mg capsule 20 mg PO DAILY ANXIETY 03/23/23 melatonin 3 mg tablet 3 mg PO QHS INSOMNIA 03/23/23 atorvastatin 80 mg tablet 80 mg PO QHS CHOLESTEROL 05/25/23 fluoxetine 40 mg capsule 40 mg PO DAILY ANXIETY 05/25/23 pantoprazole 40 mg tablet,delayed release 40 mg PO DAILY ACID REFLUX 05/25/23 trazodone 150 mg tablet 150 mg PO QHS INSOMNIA 05/25/23 Wheelchair #1 ea 07/23/23 Lift Chair #1 ea 08/06/23 bisacodyl 10 mg rectal suppository 10 mg AK DAILY PRN CONSTIPATION 08/28/23 amlodipine 10 mg tablet 10 mg PO BID BLOOD PRESSURE 10/19/23 ascorbic acid (vitamin C) 500 mg tablet 500 mg PO BID SUPPLEMENT 10/19/23 aspirin 81 mg tablet,delayed release (Ecotrin Low Strength) 81 mg PO DAILY HEART HEALTH 10/19/23 clopidogrel 75 mg tablet 75 mg PO QHS BLOOD THINNER 10/19/23 glimepiride 2 mg tablet 2 mg PO BID DIABETES 10/19/23 haloperidol lactate 2 mg/mL oral concentrate 1 mg PO Q6H PRN AGITATION 10/19/23 hydroxyzine HCl 25 mg tablet 50 mg PO QHS 10/19/23 hyoscyamine sulfate 0.125 mg tablet 0.125 mg PO Q4H PRN BLADDER 10/19/23 insulin detemir U-100 100 unit/mL (3 mL) subcutaneous pen (Levemir FlexPen) 25 unit subcut BID DIABETES 10/19/23 isosorbide mononitrate 30 mg tablet,extended release 24 hr 30 mg PO DAILY HEART 10/19/23 lorazepam 0.5 mg tablet 0.5 mg PO Q4H PRN ANXIETY/AGITATION 10/19/23 magnesium 250 mg tablet 250 mg PO DAILY SUPPLEMENT 10/19/23 metoclopramide HCl 5 mg tablet 5 mg PO TID INTESTINES 10/19/23 nitroglycerin 0.4 mg sublingual tablet 0.4 mg sublingual Q5M PRN CHEST PAIN 10/19/23 oxycodone 5 mg tablet 5 mg PO Q4H PRN PAIN (PAIN SCORE 6-10) 10/19/23 pregabalin 75 mg capsule 75 mg PO Q12H PRN PAIN 10/19/23 sennosides 8.6 mg-docusate sodium 50 mg tablet (Senna Plus) 1 tab-cap PO BID CONSTIPATION 10/19/23 tizanidine 2 mg tablet 2 mg PO Q8H PRN MUSCLE SPASMS 10/19/23 flash glucose sensor (FreeStyle Mago 14 Day Sensor kit) 10/20/23 ciprofloxacin HCl 500 mg tablet 500 mg PO BID 14 days #28 tabs 10/25/23 oxycodone 5 mg tablet 5 mg PO Q6H PRN pain 3 days #12 tabs 10/25/23 vancomycin 1 gram/200 mL in dextrose 5 % intravenous piggyback 1,000 mg IV Q24H 37 days #7,400 mL 10/25/23 Hospital Course Operations - (partial excision of calcaneal bone, delayed primary close of wound and application of delta frame external fixator) Procedures None Summary of Care Provided Minutes Spent on Discharge: 65 Hospital Course: Patient is a 63-year-old male with a past medical history as outlined was admitted through the ED on 10/19/2023 with a complaint of a nonhealing left heel ulcer for 2 to 3 weeks prior to admission. He was admitted from his senior care. He had been on oral ciprofloxacin and Augmentin. X-ray done and was concerning for osteomyelitis so he was sent in for admission. Labs were otherwise unremarkable. He was admitted and managed for nonhealing ulcer of the left heel with concerns for osteomyelitis. He was started on broad-spectrum antibiotics. Podiatry was consulted. He had MRI of the left foot which showed osteomyelitis of the calcaneus of the left foot. He had partial excision of the calcaneal bone with delayed primary closure of the wound using adjacent tissue transfer and application of delta frame external fixator for multiplane stability. Infectious disease was also consulted. Bone cultures grew MRSA and diphtheroids. Patient had been on IV vancomycin and Zosyn. ID ordered PICC line and patient was discharged on a 6-week course of IV vancomycin with stop date of 12/21/2043 and 2 weeks of p.o. ciprofloxacin. He was weekly labs were also ordered IV vancomycin. [facility] on 10[facility]23. He is follow-up with his PCP, ID and podiatry within 1 to 2 weeks. Patient seen and examined prior to discharge. He had no complaints and had an uneventful night. Review of systems otherwise negative. Labs and vitals reviewed. Home medication reviewed and reconciled. Physical Exam Const alert, oriented x3 and no apparent distress General Appearance: cooperative, comfortable and well kempt Orientation / Consciousness: awake Exam Limitations: altered mental status HEENT normocephalic, head/scalp atraumatic, hearing grossly normal bilaterally and moist oral mucous membranes Mouth: oral and palatal mucosa normal and dry mucous membranes Eyes PERRL, EOMs intact bilaterally and conjunctivae normal Neck no lymphadenopathy, supple and no JVD Resp normal respiratory effort, no retractions, no use of accessory muscles and clear to auscultation bilaterally Cardio regular rate, regular rhythm, S1 normal heart sound, S2 normal heart sound and no murmurs GI normal to inspection, nondistended, normoactive bowel sounds, soft to palpation, non-tender and non-distended Extremity Extremity Narrative: LLE wrapped in bandage. External fixator in place. Skin no rashes or lesions noted Neuro oriented x3, CN's II-XII intact bilaterally, moves all extremities and no focal motor deficits Sensorium / Orientation: awake, alert, oriented to person, oriented to place and oriented to time Psych affect normal Medical Records Data Medical Nutrition Assessment Dietitian: Malnutrition Criteria Met Start: 10/20/23 09:35 Freq: Status: Active Protocol: Document 10/25/23 10:41 AG (Rec: 10/25/23 10:41 AG Desktop) Nutrition Malnutrition Evidence of Malnutrition Exists Yes Malnutrition (severe): Acute Illness/Injury Evidenced By Suboptimal Energy Intake ( Severe),Weight Loss (Severe) Clinical Problem Acute Disease or Injury Related Malnutrition Etiology severe, acute malnutrition related to inadequate energy intake w/ dislike of SNF food Signs/Symptoms as evidenced by unintentional 14.3kg/11% wt loss, estimated PO intake meeting <75% of estimated energy needs > 1 month Status Active Problem Recommendation Dietitian Recommendations/Changes will adjust diet to Carbohydrate Controlled; will d/c Glucerna 120mL 4x/day and Aubrey BID d/t pt refusal. Continue Magic Cup w/ meals per pt request. Weight / BMI Weight Weight: 249 lb 9.012 oz Body Mass Index (BMI) 35.8 ABG / Lab / Microbiology Data 10/25/23 06:25 10/25/23 06:25 Laboratory: Laboratory Results - last 24 hr 10/24/23 16:44: POC Glucose 221 H 10/24/23 21:27: POC Glucose 202 H 10/25/23 06:25: WBC 10.2, RBC 3.56 L, Hgb 9.7 L, Hct 30.2 L, MCV 84.8, MCH 27.2, MCHC 32.1, RDW Std Deviation 44.6 H, RDW Coeff of James 14.4, Plt Count 200, MPV 10.5, Immature Gran % (Auto) 0.500, Neut % (Auto) 63.8, Lymph % (Auto) 22.3, [place] % (Auto) 10.3 H, Eos % (Auto) 2.5, Baso % (Auto) 0.6, Absolute Neuts (auto) 6.5, Absolute Lymphs (auto) 2.28, Nucleated RBC % 0, Sodium 143, Potassium 3.7, Chloride 112 H, Carbon Dioxide 29.0, Anion Gap 2 L, BUN 14, Creatinine 1.49 H, Estim Creat Clear Calc 51.72, Est GFR (MDRD) Af Amer 61, Est GFR (MDRD) Non-Af 50 L, BUN/Creatinine Ratio 9.4 L, Glucose 82, Calcium 8.5 10/25/23 06:40: POC Glucose 84 10/25/23 11:36: POC Glucose 107 H Microbiology: Microbiology 10/19/23 16:15 Blood Culture (Wb) - Right Hand Blood Culture - Final No growth in 5 days. 10/19/23 15:50 Blood Culture (Wb) - Anticubital Left Blood Culture - Final No growth in 5 days. 10/20/23 Unknown Wound - Left Foot Gram Stain - Final 10/20/23 Unknown Wound - Left Foot Wound Culture - Final Corynebacterium striatum 10/20/23 Unknown Wound - Left Foot Anaerobic Culture - Final No anaerobic bacteria isolated. 10/20/23 Unknown Bone - Other Gram Stain - Final 10/20/23 Unknown Bone - Other Wound Culture - Final Meth. resistant Staph. aureus Corynebacterium striatum 10/20/23 Unknown Bone - Other Anaerobic Culture - Final No anaerobic bacteria isolated. 10/20/23 Unknown Tissue - Other Gram Stain - Final 10/20/23 Unknown Tissue - Other Wound Culture - Final Meth. resistant Staph. aureus Corynebacterium striatum 10/20/23 Unknown Tissue - Other Anaerobic Culture - Final No anaerobic bacteria isolated. Radiography Diagnostic Testing: Radiology Impression Foot X-Ray 10/20/23 12:40 IMPRESSION: Intraoperative digital documentation views. Electronically Signed: Simeon Covarrubias MD at 13:09 EST , D/C Instructions Discharge Diet: Low fat / Low cholesterol Discharge Activity: Return to Normal Activity Weight Bearing Status: Weight bearing as tolerated Call your doctor if you observe: Fever of 101 or Higher, Shortness of breath, Dizziness, Swelling in the ankles and Chest pain Meaningful Use Info Meaningful Use Diagnoses (Choose all that apply): None applicable Discharge Plan Admission Admit Date/Time: 10/19/23 16:55 Primary Reason for Your Visit: osteomyelitis of the left heel Attending Provider: Nona Salcedo Primary Care Provider: Doretha Brown Consulting Providers: Lexy Christy; Jason Hess; Raheem Corona; Rubio Miller; Sean Linder Instructions Patient Instructions: Osteomyelitis Dc Additional Instructions / Restrictions: Upon discharge to SNF patient will receive every third day dressing changes to left lower extremity consisting of cleansing of pin sites with alcohol versus peroxide application of Betadine paint to pin sites as well as wound and incisional site to posterior heel application of overlying Adaptic 4 x 4's Kerlix followed by lightly wrapped New bandage for gentle compression. Discharge Orders/Prescriptions Prescriptions: New vancomycin in dextrose 5 % 1 gram/200 mL Piggyback 1,000 mg IV Q24H 37 Days Qty: 7400 0RF Rx Instructions: stop date 12/01/23. dx: foot osteo weekly bmp, cbc, vanc trough, and ESR. Fax to [phone] ciprofloxacin HCl 500 mg Tablet 500 mg PO BID 14 Days Qty: 28 0RF oxycodone 5 mg tablet 5 mg PO Q6H PRN (Reason: pain) 3 Days Qty: 12 0RF Continued (DME) Ultra-Light Rollator Misc See Rx Instructions .Route Qty: 1 2RF Rx Instructions: As directed (DME) pen needle, diabetic 33 gauge x 5/16 needle See Rx Instructions .Route Qty: 200 3RF Rx Instructions: As directed melatonin 3 mg tablet 3 mg PO QHS fluoxetine 20 mg capsule 20 mg PO DAILY Patient Comments: TAKE ONE 20MG AND ONE 40MG CAPSULE BY MOUTH ONCE DAILY FOR A TOTAL DOSE OF 60MG (DME) Lift Chair See Rx Instructions .Route .MEDSUPPLY Qty: 1 0RF Rx Instructions: As directed (DME) gauze bandage [Bordered Gauze] 4 X 4 bandage See Rx Instructions .ROUTE .MEDSUPPLY Qty: 14 2RF Rx Instructions: Daily cleanse left foot wound with soap and water, dry and apply Betadine solution and apply clean dressing fluoxetine 40 mg capsule 40 mg PO DAILY Patient Comments: TAKE ONE 20MG AND ONE 40MG CAPSULE BY MOUTH ONCE DAILY FOR A TOTAL DOSE OF 60MG trazodone 150 mg tablet 150 mg PO QHS pantoprazole 40 mg tablet,delayed release (DR/EC) 40 mg PO DAILY atorvastatin 80 mg tablet 80 mg PO QHS bisacodyl 10 mg suppository 10 mg AK DAILY PRN (Reason: CONSTIPATION ) amlodipine 10 mg tablet 10 mg PO BID aspirin [Ecotrin Low Strength] 81 mg tablet,delayed release (DR/EC) 81 mg PO DAILY lorazepam 0.5 mg tablet 0.5 mg PO Q4H PRN (Reason: ANXIETY/AGITATION ) glimepiride 2 mg tablet 2 mg PO BID haloperidol lactate 2 mg/mL concentrate 1 mg PO Q6H PRN (Reason: AGITATION ) hydroxyzine HCl 25 mg tablet 50 mg PO QHS Levemir FlexPen 100 unit/mL (3 mL) insulin pen 25 unit SUBCUT BID magnesium 250 mg tablet 250 mg PO DAILY hyoscyamine sulfate 0.125 mg tablet 0.125 mg PO Q4H PRN (Reason: BLADDER) isosorbide mononitrate 30 mg tablet extended release 24 hr 30 mg PO DAILY metoclopramide HCl 5 mg tablet 5 mg PO TID nitroglycerin 0.4 mg tablet, sublingual 0.4 mg sublingual Q5M PRN (Reason: CHEST PAIN ) oxycodone 5 mg tablet 5 mg PO Q4H PRN (Reason: PAIN (PAIN SCORE 6-10)) sennosides-docusate sodium [Senna Plus] 8.6-50 mg tablet 1 tab-cap PO BID tizanidine 2 mg tablet 2 mg PO Q8H PRN (Reason: MUSCLE SPASMS ) ascorbic acid (vitamin C) 500 mg tablet 500 mg PO BID clopidogrel 75 mg tablet 75 mg PO QHS pregabalin 75 mg Capsule 75 mg PO Q12H PRN (Reason: PAIN ) (DME) FreeStyle Mago 14 Day Sensor Kit See Rx Instructions .Route Rx Instructions: As directed; check BS 3x daily for DMII (DME) Wheelchair See Rx Instructions .Route .MEDSUPPLY Qty: 1 0RF Rx Instructions: As directed Discontinued ciprofloxacin HCl 750 mg tablet 750 mg PO BID Patient Comments: TAKE ONE TABLET BY MOUTH TWICE DAILY FOR 7 DAYS. START DATE: 10/16/23 END DATE: 10/22/23 Referrals / Follow Up: Jason Hess DPM [Med Staff - Active Staff] - Within 1 Week Doretha Brown MD [Primary Care Provider] - Within 2 Weeks Raheem Corona MD [Med Staff - Active Staff] - Within 2 Weeks Disposition Disposition (needs filled in before D/C Order can be placed): Retirement Facility
[2023-10-25] MEDS: LORazepam 0.5 MG Tablet PO (15:59)
--- NOTE | 2023-10-25 16:34 | CASEMGMT ---
Addendum entered by Nuria Singh 10/26/23 09:01: Discharge Planning Patient felt discharge time was too late so it was cancelled. Transport rescheduled for 1p. [facility], nursing, SW, and patient updated. A vm was left for his sig other. Nuria Singh, Discharge Planning Asst. Original Note: Discharge Planning Discharge orders, signed med list, and transport time sent to [facility] via [facility]. [facility] will transport patient by cot at 6:30p. Nursing, SW, and patients significant other updated. Nuria Singh, Discharge Planning Asst.
--- NOTE | 2023-10-25 17:01 | CASEMGMT ---
Social Work - Discharge Note Received update that [facility] obtained insurance authorization. Patient needs IV antibiotics and PICC is being ordered for placement today. Dr. Salcedo plans to discharge after PICC placement. Met with patient and significant other Lexis in room. Updated patient to discharge planning. Patient expressed frustration with needing IVs and wanting to be home from by [facility]. Patient made comment I want to when talking through care needs at discharge. This technical proposal writer allowed patient time to ventilate feelings, and frustrations with perceived setbacks in recovery. Through conversation, patient became tearful and stated I don't want do , I want to live, I'm too young to . No thoughts of SI, and patient reports does want to live. This technical proposal writer talked through patient's frustrations, and importance of working with providers and care team at [facility] for alf goals of getting home. Lexis presented as supportive of patient, and shared that patient was on hospice at one point, but this was discontinued so patient could get therapy. When hospice was mentioned by Lexis, patient voiced I want to live, I'm not ready to . Observed Lexis to be supportive of patient and willing to support patient any way that can. Lexis reports would even be comfortable with helping with Home IV ATBs, as has done this before for another family member. Patient acknowledges that has to take care of external fixator and NWB status before can think of going home. Much emotional support offered to patient. Patient calm at end of conversation, accepting of discharge plan to [facility]. Plan: Return to [facility], where patient is a more than 30 day stay resident, but will return skilled level of care for PT/OT and IV antibiotics. Transportation and notification to SNF with orders as arranged by DC planning analyst. No other services requested or indicated. -ESTHER Solorzano
[2023-10-25 18:03] LABS: Bedside Glucose 141 mg/dL (74-106)
--- NOTE | 2023-10-25 21:00 | RAD_ITS ---
INDICATION: PICC placement. EXAMINATION/TECHNIQUE: X-RAY - XR Chest 1 View COMPARISON: 10/20/2023 chest radiograph. Findings: Single frontal view of the chest. LUNG PARENCHYMA: Again is noted elevation of the right hemidiaphragm with right infrahilar streaky atelectasis versus other airspace disease. PLEURA: No pleural effusion. No pneumothorax. HEART/GREAT VESSELS: Cardiomediastinal silhouette is partially obscured. Left PICC tip overlies cavoatrial junction. BONES: Osseous structures are unremarkable for age. RAD/CXR for Line Placement IMPRESSION: Left PICC tip overlies cavoatrial junction. Again is noted elevation of the right hemidiaphragm with right infrahilar streaky atelectasis versus other airspace disease, to include pneumonia. Recommend follow-up to resolution. Electronically Signed: Bonilla Quiles MD at 22:24 EST ,
[2023-10-25] MEDS: 0.9% Saline Lock 10 ML Syringe IV (21:34)
[2023-10-25] MEDS: Atorvastatin Calcium 80 MG Tablet PO (21:44)
[2023-10-25] MEDS: traZODone 50 MG Tablet 150 MG PO (21:44)
[2023-10-25] MEDS: Ciprofloxacin 500 MG Tablet PO (21:44)
[2023-10-25] MEDS: Insulin Glargine-YFGN 100 UNIT/ML Pen 15 UNIT SC (21:49)
[2023-10-25 22:19] LABS: Bedside Glucose 133 mg/dL (74-106)
[2023-10-26 04:17] VITALS: BP 142/88; PULSE 61; RESP 16; TEMP 36.6; O2SAT 98
[2023-10-26 06:15] VITALS: BP 142/88; PULSE 61
[2023-10-26] MEDS: hydrALAZINE 25 MG Tablet PO (06:15)
[2023-10-26] MEDS: 0.9% Normal Saline (1000mL) 1,000 ML 100 ML IV (06:16)
[2023-10-26] MEDS: Menthol/Lanolin/Calamine/Znox 113 GM Tube 1 APPLIC TOPICAL (06:16)
[2023-10-26 06:55] VITALS: O2SAT 97
[2023-10-26 07:42] LABS: Bedside Glucose 73 mg/dL (74-106)
--- NOTE | 2023-10-26 07:42 | PN_ITS ---
Subjective Subjective THIS IS A LATE ENTRY NOTE FOR 10/25/2023 Patient was seen and examined. He had no complaints. Plan was for patient to be discharged to SNF on 10/25/2023 after PICC line for retirement antibiotics was inserted. However, after the PICC line was inserted, patient felt it was too late for him to go to the SNF. Discharge was therefore canceled. Patient seen and examined in the morning. He had no complaints then and had an uneventful night. Review of systems is otherwise negative. Objective Data Objective Data Vital Signs: Vital Signs Temp Pulse Resp BP Pulse Ox O2 Del Method O2 Flow Rate 98 F 61 16 142/88 H 98 Room Air 2 10/26/23 04:17 10/26/23 06:15 10/26/23 04:17 10/26/23 06:15 10/26/23 04:17 10/26/23 04:17 10/25/23 03:13 Oxygen Flow Rate (L/min) 2 Oxygen Delivery Method Room Air Weight: 249 lb 9.012 oz Body Mass Index (BMI) 35.8 Intake & Output: Intake and Output for Last 24 Hours 10/24/23 10/25/23 10/26/23 23:59 23:59 23:59 Intake Total 3678.33 / 3678.33 2171.67 / 2171.67 871.67 / 871.67 Output Total 1450 / 1950 2400 / 2400 600 / 600 Balance 2228.33 / 1728.33 -228.33 / -228.33 271.67 / 271.67 Medical Nutrition Assessment Dietitian: Malnutrition Criteria Met Start: 10/20/23 09:35 Freq: Status: Active Protocol: Document 10/25/23 10:41 AG (Rec: 10/25/23 10:41 AG Desktop) Nutrition Malnutrition Evidence of Malnutrition Exists Yes Malnutrition (severe): Acute Illness/Injury Evidenced By Suboptimal Energy Intake ( Severe),Weight Loss (Severe) Clinical Problem Acute Disease or Injury Related Malnutrition Etiology severe, acute malnutrition related to inadequate energy intake w/ dislike of SNF food Signs/Symptoms as evidenced by unintentional 14.3kg/11% wt loss, estimated PO intake meeting <75% of estimated energy needs > 1 month Status Active Problem Recommendation Dietitian Recommendations/Changes will adjust diet to Carbohydrate Controlled; will d/c Glucerna 120mL 4x/day and Aubrey BID d/t pt refusal. Continue Magic Cup w/ meals per pt request. Lab / Micro Data 10/25/23 06:25 10/25/23 06:25 Labs: Laboratory Results - last 24 hr 10/25/23 11:36: POC Glucose 107 H 10/25/23 17:43: POC Glucose 141 H 10/25/23 21:39: POC Glucose 133 H Micro: Microbiology 10/19/23 16:15 Blood Culture (Wb) - Right Hand Blood Culture - Final No growth in 5 days. 10/19/23 15:50 Blood Culture (Wb) - Anticubital Left Blood Culture - Final No growth in 5 days. 10/20/23 Unknown Wound - Left Foot Gram Stain - Final 10/20/23 Unknown Wound - Left Foot Wound Culture - Final Corynebacterium striatum 10/20/23 Unknown Wound - Left Foot Anaerobic Culture - Final No anaerobic bacteria isolated. 10/20/23 Unknown Bone - Other Gram Stain - Final 10/20/23 Unknown Bone - Other Wound Culture - Final Meth. resistant Staph. aureus Corynebacterium striatum 10/20/23 Unknown Bone - Other Anaerobic Culture - Final No anaerobic bacteria isolated. 10/20/23 Unknown Tissue - Other Gram Stain - Final 10/20/23 Unknown Tissue - Other Wound Culture - Final Meth. resistant Staph. aureus Corynebacterium striatum 10/20/23 Unknown Tissue - Other Anaerobic Culture - Final No anaerobic bacteria isolated. Radiography Diagnostic Testing: Radiology Impression Foot X-Ray 10/20/23 12:40 IMPRESSION: Intraoperative digital documentation views. Electronically Signed: Simeon Covarrubias MD at 13:09 EST , Chest X-Ray 10/25/23 21:00 IMPRESSION: Left PICC tip overlies cavoatrial junction. Again is noted elevation of the right hemidiaphragm with right infrahilar streaky atelectasis versus other airspace disease, to include pneumonia. Recommend follow-up to resolution. Electronically Signed: Bonilla Quiles MD at 22:24 EST , Physical Exam Narrative Const alert, oriented x3 and no apparent distress General Appearance: cooperative, comfortable and well kempt Orientation / Consciousness: awake Exam Limitations: altered mental status HEENT normocephalic, head/scalp atraumatic, hearing grossly normal bilaterally and moist oral mucous membranes Mouth: oral and palatal mucosa normal and dry mucous membranes Eyes PERRL, EOMs intact bilaterally and conjunctivae normal Neck no lymphadenopathy, supple and no JVD Resp normal respiratory effort, no retractions, no use of accessory muscles and clear to auscultation bilaterally Cardio regular rate, regular rhythm, S1 normal heart sound, S2 normal heart sound and no murmurs GI normal to inspection, nondistended, normoactive bowel sounds, soft to palpation, non-tender and non-distended Extremity Extremity Narrative: LLE wrapped in bandage. External fixator in place. Skin no rashes or lesions noted Neuro oriented x3, CN's II-XII intact bilaterally, moves all extremities and no focal motor deficits Sensorium / Orientation: awake, alert, oriented to person, oriented to place and oriented to time Psych affect normal Assessment & Plan Assessment/Plan (1) Left ankle instability: (2) Non-pressure chronic ulcer of other part of left foot with necrosis of bone: (3) Acute osteomyelitis of left foot: PLAN: Plan #Osteomyelitis of the left calcaneus * s/p partial excision of hte calcaneal bone and application of delta frame external fixator. ID and podiatry on board. * wound cultures positive for MRSA. * on IV vancomycin and zosyn * ID recommended PICC line insertion for a 6 week course of IV vancomycin. being dc'd on a 2 week course of ciprofloxacin also. * #Type 2 diabetes mellitus with peripheral neuropathy * on lantus. ISS. Accuchecks ACHS * on lyrica * #Anemia: monitor CBC and transfuse if Hb <7 #Hypertension: on amlodipine and hydralazine. #Hyperlipidemia: on statin #CAD: on aspirin, statin and imdur. #Depression and anxiety: on fluoxetine #GERD: on PPI #MARY: on CPAP qhs. #HFpEF: not in exacerbation. Stable On lasix. DVT prophylaxis; lovenox Charges/Coding Visit Charges Inpatient E&M: 16265 Subs Hosp L2
[2023-10-26 09:47] VITALS: BP 136/67; PULSE 73; RESP 16; TEMP 36.7; O2SAT 98
[2023-10-26] MEDS: Aspirin E.C. 81 MG Tablet PO (10:09)
[2023-10-26] MEDS: Fluoxetine HCl 40 MG CAPSULE PO (10:09)
[2023-10-26] MEDS: amLODIPine 10 MG Tablet PO (10:09)
[2023-10-26] MEDS: Finasteride 5 MG Tablet PO (10:09)
[2023-10-26] MEDS: Ciprofloxacin 500 MG Tablet PO (10:10)
[2023-10-26] MEDS: Isosorbide Mononitrate 30 MG Tablet PO (10:10)
[2023-10-26] MEDS: Enoxaparin 40 MG/0.4 ML Syringe SC (10:10)
[2023-10-26] MEDS: Pantoprazole Sodium 40 MG Tablet PO (10:10)
[2023-10-26] MEDS: Pregabalin 75 MG Capsule PO (10:10)
[2023-10-26] MEDS: FLUoxetine 20 MG Capsule PO (10:10)
--- NOTE | 2023-10-26 10:42 | CASEMGMT ---
Social Work POA for healthcare is scanned into summary tab, She Gipson is listed as healthcare POA, pt does not have LW on file but the LW provision in the POA document is checked. MAURA Jackson
--- NOTE | 2023-10-26 10:46 | CASEMGMT ---
Social Work Pt is set up to leave at 12pm, SW let pt know. Initially it was 1pm, however it was moved up due to the weather, SW let pt know. Pt nodded in understanding. MAURA Jackson
--- NOTE | 2023-10-26 10:57 | PCM.DC.SUM ---
Providers Date of Admission: 10/19/23 Date of Discharge: 10/26/23 Primary Care Physician: Dr. Doretha Brown MD Consultations 10/19/23 20:28 Consult: Onc/Wound/pig farmer Routine Comment: Reason for Consult:: left heel wound Consult: Podiatry Routine Consulting Provider: Jason Hess Reason for Consult: Sent to ED for osteo on xray and admit for surgery EMERGENT Consult: No MD Notified: Yes Date Notified: 10/19/23 Time Notified: 17:06 Method of Notification: Deshawn has seen patient 10/20/23 19:29 Consult: Infectious Disease Routine Consulting Provider: Raheem Corona Reason for Consult: Osteomyelitis of the left heel EMERGENT Consult: No MD Notified: Yes Date Notified: 10/20/23 Time Notified: 19:29 Method of Notification: Verbal Reason For Visit: ?OSTEO OF HEEL Diagnosis Discharge Diagnosis (1) Left ankle instability: Status: Acute Code(s): M25.372 - Other instability, left ankle (2) Non-pressure chronic ulcer of other part of left foot with necrosis of bone: Status: Chronic Code(s): L97.524 - Non-pressure chronic ulcer of other part of left foot with necrosis of bone (3) Acute osteomyelitis of left foot: Status: Acute Code(s): M86.172 - Other acute osteomyelitis, left ankle and foot Plan #Osteomyelitis of the left calcaneus s/p partial excision of hte calcaneal bone and application of delta frame external fixator. ID and podiatry on board. wound cultures positive for MRSA. on IV vancomycin and zosyn ID recommended PICC line insertion for a 6 week course of IV vancomycin. being dc'd on a 2 week course of ciprofloxacin also. #Type 2 diabetes mellitus with peripheral neuropathy on lantus. ISS. Accuchecks ACHS on lyrica #Anemia: monitor CBC and transfuse if Hb <7 #Hypertension: on amlodipine and hydralazine. #Hyperlipidemia: on statin #CAD: on aspirin, statin and imdur. #Depression and anxiety: on fluoxetine #GERD: on PPI #MARY: on CPAP qhs. #HFpEF: not in exacerbation. Stable On lasix. DVT prophylaxis; lovenox Medications at Discharge Home Medications gauze bandage 4 X 4 (Bordered Gauze) #14 ea 07/03/22 walker (Ultra-Light Rollator [facility] [place] #1 ea 07/21/22 pen needle, diabetic 33 gauge x 5/16 #200 ea 12/02/22 fluoxetine 20 mg capsule 20 mg PO DAILY ANXIETY 03/23/23 melatonin 3 mg tablet 3 mg PO QHS INSOMNIA 03/23/23 atorvastatin 80 mg tablet 80 mg PO QHS CHOLESTEROL 05/25/23 fluoxetine 40 mg capsule 40 mg PO DAILY ANXIETY 05/25/23 pantoprazole 40 mg tablet,delayed release 40 mg PO DAILY ACID REFLUX 05/25/23 trazodone 150 mg tablet 150 mg PO QHS INSOMNIA 05/25/23 Wheelchair #1 ea 07/23/23 Lift Chair #1 ea 08/06/23 bisacodyl 10 mg rectal suppository 10 mg MI DAILY PRN CONSTIPATION 08/28/23 amlodipine 10 mg tablet 10 mg PO BID BLOOD PRESSURE 10/19/23 ascorbic acid (vitamin C) 500 mg tablet 500 mg PO BID SUPPLEMENT 10/19/23 aspirin 81 mg tablet,delayed release (Ecotrin Low Strength) 81 mg PO DAILY HEART HEALTH 10/19/23 clopidogrel 75 mg tablet 75 mg PO QHS BLOOD THINNER 10/19/23 glimepiride 2 mg tablet 2 mg PO BID DIABETES 10/19/23 haloperidol lactate 2 mg/mL oral concentrate 1 mg PO Q6H PRN AGITATION 10/19/23 hydroxyzine HCl 25 mg tablet 50 mg PO QHS 10/19/23 hyoscyamine sulfate 0.125 mg tablet 0.125 mg PO Q4H PRN BLADDER 10/19/23 insulin detemir U-100 100 unit/mL (3 mL) subcutaneous pen (Levemir FlexPen) 25 unit subcut BID DIABETES 10/19/23 isosorbide mononitrate 30 mg tablet,extended release 24 hr 30 mg PO DAILY HEART 10/19/23 lorazepam 0.5 mg tablet 0.5 mg PO Q4H PRN ANXIETY/AGITATION 10/19/23 magnesium 250 mg tablet 250 mg PO DAILY SUPPLEMENT 10/19/23 metoclopramide HCl 5 mg tablet 5 mg PO TID INTESTINES 10/19/23 nitroglycerin 0.4 mg sublingual tablet 0.4 mg sublingual Q5M PRN CHEST PAIN 10/19/23 oxycodone 5 mg tablet 5 mg PO Q4H PRN PAIN (PAIN SCORE 6-10) 10/19/23 pregabalin 75 mg capsule 75 mg PO Q12H PRN PAIN 10/19/23 sennosides 8.6 mg-docusate sodium 50 mg tablet (Senna Plus) 1 tab-cap PO BID CONSTIPATION 10/19/23 tizanidine 2 mg tablet 2 mg PO Q8H PRN MUSCLE SPASMS 10/19/23 flash glucose sensor (FreeStyle Mago 14 Day Sensor kit) 10/20/23 ciprofloxacin HCl 500 mg tablet 500 mg PO BID 14 days #28 tabs 10/25/23 oxycodone 5 mg tablet 5 mg PO Q6H PRN pain 3 days #12 tabs 10/25/23 vancomycin 1 gram/200 mL in dextrose 5 % intravenous piggyback 1,000 mg IV Q24H 37 days #7,400 mL 10/25/23 Hospital Course Operations - ((partial excision of calcaneal bone, delayed primary close of wound and application of delta frame external fixator)) Procedures None Summary of Care Provided Minutes Spent on Discharge: 55 Hospital Course: Patient is a 63-year-old male with a past medical history as outlined was admitted through the ED on 10/19/2023 with a complaint of a nonhealing left heel ulcer for 2 to 3 weeks prior to admission. He was admitted from his halfway. He had been on oral ciprofloxacin and Augmentin. X-ray done and was concerning for osteomyelitis so he was sent in for admission. Labs were otherwise unremarkable. He was admitted and managed for nonhealing ulcer of the left heel with concerns for osteomyelitis. He was started on broad-spectrum antibiotics. Podiatry was consulted. He had MRI of the left foot which showed osteomyelitis of the calcaneus of the left foot. He had partial excision of the calcaneal bone with delayed primary closure of the wound using adjacent tissue transfer and application of delta frame external fixator for multiplane stability. Infectious disease was also consulted. Bone cultures grew MRSA and diphtheroids. Patient had been on IV vancomycin and Zosyn. ID ordered PICC line and patient was discharged on a 6-week course of IV vancomycin with stop date of 12/21/2043 and 2 weeks of p.o. ciprofloxacin. He was to have weekly labs whilst on IV vancomycin. Patient was discharged to the senior living facility on 10/25/2023. Discharge was therefore cancelled as patient had the PICC line inserted late on 10/25/2023. He was therefore discharged on 10/26/2023. He is follow-up with his PCP, ID and podiatry within 1 to 2 weeks. Patient seen and examined prior to discharge. He had no complaints and had an uneventful night. Review of systems otherwise negative. Labs and vitals reviewed. Home medication reviewed and reconciled. Physical Exam Const alert, oriented x3 and no apparent distress General Appearance: cooperative, comfortable, well kempt and well developed Orientation / Consciousness: awake, oriented to person and oriented to place Exam Limitations: no limitations HEENT normocephalic, head/scalp atraumatic, hearing grossly normal bilaterally and moist oral mucous membranes Mouth: oral and palatal mucosa normal Eyes PERRL, EOMs intact bilaterally and conjunctivae normal Neck no lymphadenopathy, supple, no JVD, thyroid normal and no carotid bruits General: trachea midline Resp normal respiratory effort, no retractions, no use of accessory muscles and clear to auscultation bilaterally Auscultation: Negative for rales, rhonchi or wheezes Cardio regular rate, regular rhythm, S1 normal heart sound, S2 normal heart sound, no murmurs, no rub and no gallops GI normal to inspection, nondistended, normoactive bowel sounds, soft to palpation, non-tender and non-distended Extremity Extremity Narrative: LLE wrapped in bandage. External fixator in place. Skin no rashes or lesions noted Neuro oriented x3, CN's II-XII intact bilaterally, moves all extremities, no focal motor deficits and no sensory deficits noted Sensorium / Orientation: awake, alert, oriented to person, oriented to place and oriented to time Speech: speech normal Psych affect normal Medical Records Data Medical Nutrition Assessment Dietitian: Malnutrition Criteria Met Start: 10/20/23 09:35 Freq: Status: Active Protocol: Document 10/25/23 10:41 AG (Rec: 10/25/23 10:41 AG Desktop) Nutrition Malnutrition Evidence of Malnutrition Exists Yes Malnutrition (severe): Acute Illness/Injury Evidenced By Suboptimal Energy Intake ( Severe),Weight Loss (Severe) Clinical Problem Acute Disease or Injury Related Malnutrition Etiology severe, acute malnutrition related to inadequate energy intake w/ dislike of SNF food Signs/Symptoms as evidenced by unintentional 14.3kg/11% wt loss, estimated PO intake meeting <75% of estimated energy needs > 1 month Status Active Problem Recommendation Dietitian Recommendations/Changes will adjust diet to Carbohydrate Controlled; will d/c Glucerna 120mL 4x/day and Aubrey BID d/t pt refusal. Continue Magic Cup w/ meals per pt request. Weight / BMI Weight Weight: 249 lb 9.012 oz Body Mass Index (BMI) 35.8 ABG / Lab / Microbiology Data 10/25/23 06:25 10/25/23 06:25 Laboratory: Laboratory Results - last 24 hr 10/25/23 11:36: POC Glucose 107 H 10/25/23 17:43: POC Glucose 141 H 10/25/23 21:39: POC Glucose 133 H 10/26/23 06:18: POC Glucose 73 L Microbiology: Microbiology 10/19/23 16:15 Blood Culture (Wb) - Right Hand Blood Culture - Final No growth in 5 days. 10/19/23 15:50 Blood Culture (Wb) - Anticubital Left Blood Culture - Final No growth in 5 days. 10/20/23 Unknown Wound - Left Foot Gram Stain - Final 10/20/23 Unknown Wound - Left Foot Wound Culture - Final Corynebacterium striatum 10/20/23 Unknown Wound - Left Foot Anaerobic Culture - Final No anaerobic bacteria isolated. 10/20/23 Unknown Bone - Other Gram Stain - Final 10/20/23 Unknown Bone - Other Wound Culture - Final Meth. resistant Staph. aureus Corynebacterium striatum 10/20/23 Unknown Bone - Other Anaerobic Culture - Final No anaerobic bacteria isolated. 10/20/23 Unknown Tissue - Other Gram Stain - Final 10/20/23 Unknown Tissue - Other Wound Culture - Final Meth. resistant Staph. aureus Corynebacterium striatum 10/20/23 Unknown Tissue - Other Anaerobic Culture - Final No anaerobic bacteria isolated. Radiography Diagnostic Testing: Radiology Impression Foot X-Ray 10/20/23 12:40 IMPRESSION: Intraoperative digital documentation views. Electronically Signed: Simeon Covarrubias MD at 13:09 EST , Chest X-Ray 10/25/23 21:00 IMPRESSION: Left PICC tip overlies cavoatrial junction. Again is noted elevation of the right hemidiaphragm with right infrahilar streaky atelectasis versus other airspace disease, to include pneumonia. Recommend follow-up to resolution. Electronically Signed: Bonilla Quiles MD at 22:24 EST , D/C Instructions Discharge Diet: Low fat / Low cholesterol Discharge Activity: Return to Normal Activity Weight Bearing Status: Weight bearing as tolerated Call your doctor if you observe: Fever of 101 or Higher, Shortness of breath, Dizziness, Swelling in the ankles and Chest pain Meaningful Use Info Meaningful Use Diagnoses (Choose all that apply): None applicable Discharge Plan Admission Admit Date/Time: 10/19/23 16:55 Primary Reason for Your Visit: osteomyelitis of the left heel Attending Provider: Nona Salcedo Primary Care Provider: Doretha Brown Consulting Providers: Lexy Christy; Jason Hess; Raheem Corona; Rubio Miller; Sean Linder Instructions Patient Instructions: Osteomyelitis Dc Additional Instructions / Restrictions: Upon discharge to SNF patient will receive every third day dressing changes to left lower extremity consisting of cleansing of pin sites with alcohol versus peroxide application of Betadine paint to pin sites as well as wound and incisional site to posterior heel application of overlying Adaptic 4 x 4's Kerlix followed by lightly wrapped New bandage for gentle compression. Discharge Orders/Prescriptions Prescriptions: New vancomycin in dextrose 5 % 1 gram/200 mL Piggyback 1,000 mg IV Q24H 37 Days Qty: 7400 0RF Rx Instructions: stop date 12/01/23. dx: foot osteo weekly bmp, cbc, vanc trough, and ESR. Fax to [phone] ciprofloxacin HCl 500 mg Tablet 500 mg PO BID 14 Days Qty: 28 0RF oxycodone 5 mg tablet 5 mg PO Q6H PRN (Reason: pain) 3 Days Qty: 12 0RF Continued (DME) Ultra-Light Rollator Misc See Rx Instructions .Route Qty: 1 2RF Rx Instructions: As directed (DME) pen needle, diabetic 33 gauge x 5/16 needle See Rx Instructions .Route Qty: 200 3RF Rx Instructions: As directed melatonin 3 mg tablet 3 mg PO QHS fluoxetine 20 mg capsule 20 mg PO DAILY Patient Comments: TAKE ONE 20MG AND ONE 40MG CAPSULE BY MOUTH ONCE DAILY FOR A TOTAL DOSE OF 60MG (DME) Lift Chair See Rx Instructions .Route .MEDSUPPLY Qty: 1 0RF Rx Instructions: As directed (DME) gauze bandage [Bordered Gauze] 4 X 4 bandage See Rx Instructions .ROUTE .MEDSUPPLY Qty: 14 2RF Rx Instructions: Daily cleanse left foot wound with soap and water, dry and apply Betadine solution and apply clean dressing fluoxetine 40 mg capsule 40 mg PO DAILY Patient Comments: TAKE ONE 20MG AND ONE 40MG CAPSULE BY MOUTH ONCE DAILY FOR A TOTAL DOSE OF 60MG trazodone 150 mg tablet 150 mg PO QHS pantoprazole 40 mg tablet,delayed release (DR/EC) 40 mg PO DAILY atorvastatin 80 mg tablet 80 mg PO QHS bisacodyl 10 mg suppository 10 mg MI DAILY PRN (Reason: CONSTIPATION ) amlodipine 10 mg tablet 10 mg PO BID aspirin [Ecotrin Low Strength] 81 mg tablet,delayed release (DR/EC) 81 mg PO DAILY lorazepam 0.5 mg tablet 0.5 mg PO Q4H PRN (Reason: ANXIETY/AGITATION ) glimepiride 2 mg tablet 2 mg PO BID haloperidol lactate 2 mg/mL concentrate 1 mg PO Q6H PRN (Reason: AGITATION ) hydroxyzine HCl 25 mg tablet 50 mg PO QHS Levemir FlexPen 100 unit/mL (3 mL) insulin pen 25 unit SUBCUT BID magnesium 250 mg tablet 250 mg PO DAILY hyoscyamine sulfate 0.125 mg tablet 0.125 mg PO Q4H PRN (Reason: BLADDER) isosorbide mononitrate 30 mg tablet extended release 24 hr 30 mg PO DAILY metoclopramide HCl 5 mg tablet 5 mg PO TID nitroglycerin 0.4 mg tablet, sublingual 0.4 mg sublingual Q5M PRN (Reason: CHEST PAIN ) oxycodone 5 mg tablet 5 mg PO Q4H PRN (Reason: PAIN (PAIN SCORE 6-10)) sennosides-docusate sodium [Senna Plus] 8.6-50 mg tablet 1 tab-cap PO BID tizanidine 2 mg tablet 2 mg PO Q8H PRN (Reason: MUSCLE SPASMS ) ascorbic acid (vitamin C) 500 mg tablet 500 mg PO BID clopidogrel 75 mg tablet 75 mg PO QHS pregabalin 75 mg Capsule 75 mg PO Q12H PRN (Reason: PAIN ) (DME) FreeStyle Mago 14 Day Sensor Kit See Rx Instructions .Route Rx Instructions: As directed; check BS 3x daily for DMII (DME) Wheelchair See Rx Instructions .Route .MEDSUPPLY Qty: 1 0RF Rx Instructions: As directed Discontinued ciprofloxacin HCl 750 mg tablet 750 mg PO BID Patient Comments: TAKE ONE TABLET BY MOUTH TWICE DAILY FOR 7 DAYS. START DATE: 10/16/23 END DATE: 10/22/23 Referrals / Follow Up: Jason Hess DPM [Med Staff - Active Staff] - Within 1 Week Doretha Brown MD [Primary Care Provider] - Within 2 Weeks Raheem Corona MD [Med Staff - Active Staff] - Within 2 Weeks Disposition Disposition (needs filled in before D/C Order can be placed): [facility] Facility Charges/Coding Visit Charges Inpatient E&M: 00626 Disch Hosp >30min
--- NOTE | 2023-10-26 11:14 | PHA.DC_ITS ---
Pharmacy [place] Med Reconciliation Pharmacy Service has performed discharge medication reconciliation for this patient. The patient's discharge medication list was reviewed for discrepancies and discrepancies were resolved. Medications at Discharge Home Medications gauze bandage 4 X 4 (Bordered Gauze) #14 ea 07/03/22 walker (Ultra-Light Rollator misc) #1 ea 07/21/22 pen needle, diabetic 33 gauge x 5/16 #200 ea 12/02/22 fluoxetine 20 mg capsule 20 mg PO DAILY ANXIETY 03/23/23 melatonin 3 mg tablet 3 mg PO QHS INSOMNIA 03/23/23 atorvastatin 80 mg tablet 80 mg PO QHS CHOLESTEROL 05/25/23 fluoxetine 40 mg capsule 40 mg PO DAILY ANXIETY 05/25/23 pantoprazole 40 mg tablet,delayed release 40 mg PO DAILY ACID REFLUX 05/25/23 trazodone 150 mg tablet 150 mg PO QHS INSOMNIA 05/25/23 Wheelchair #1 ea 07/23/23 Lift Chair #1 ea 08/06/23 bisacodyl 10 mg rectal suppository 10 mg MS DAILY PRN CONSTIPATION 08/28/23 amlodipine 10 mg tablet 10 mg PO BID BLOOD PRESSURE 10/19/23 ascorbic acid (vitamin C) 500 mg tablet 500 mg PO BID SUPPLEMENT 10/19/23 aspirin 81 mg tablet,delayed release (Ecotrin Low Strength) 81 mg PO DAILY HEART HEALTH 10/19/23 clopidogrel 75 mg tablet 75 mg PO QHS BLOOD THINNER 10/19/23 glimepiride 2 mg tablet 2 mg PO BID DIABETES 10/19/23 haloperidol lactate 2 mg/mL oral concentrate 1 mg PO Q6H PRN AGITATION 10/19/23 hydroxyzine HCl 25 mg tablet 50 mg PO QHS 10/19/23 hyoscyamine sulfate 0.125 mg tablet 0.125 mg PO Q4H PRN BLADDER 10/19/23 insulin detemir U-100 100 unit/mL (3 mL) subcutaneous pen (Levemir FlexPen) 25 unit subcut BID DIABETES 10/19/23 isosorbide mononitrate 30 mg tablet,extended release 24 hr 30 mg PO DAILY HEART 10/19/23 lorazepam 0.5 mg tablet 0.5 mg PO Q4H PRN ANXIETY/AGITATION 10/19/23 magnesium 250 mg tablet 250 mg PO DAILY SUPPLEMENT 10/19/23 metoclopramide HCl 5 mg tablet 5 mg PO TID INTESTINES 10/19/23 nitroglycerin 0.4 mg sublingual tablet 0.4 mg sublingual Q5M PRN CHEST PAIN 10/19/23 oxycodone 5 mg tablet 5 mg PO Q4H PRN PAIN (PAIN SCORE 6-10) 10/19/23 pregabalin 75 mg capsule 75 mg PO Q12H PRN PAIN 10/19/23 sennosides 8.6 mg-docusate sodium 50 mg tablet (Senna Plus) 1 tab-cap PO BID CONSTIPATION 10/19/23 tizanidine 2 mg tablet 2 mg PO Q8H PRN MUSCLE SPASMS 10/19/23 flash glucose sensor ([employer] Mago 14 Day Sensor kit) 10/20/23 ciprofloxacin HCl 500 mg tablet 500 mg PO BID 14 days #28 tabs 10/25/23 oxycodone 5 mg tablet 5 mg PO Q6H PRN pain 3 days #12 tabs 10/25/23 vancomycin 1 gram/200 mL in dextrose 5 % intravenous piggyback 1,000 mg IV Q24H 37 days #7,400 mL 10/25/23
[2023-10-26 11:20] LABS: Creatinine, Serum 1.44 mg/dL (0.70-1.30); EST Glomerular Filtration Rate 52 mL/min (>60); Est Glom Filt Rate - Afr Amer 63 mL/min (>60); Estimated Creatinine Clearance 53.51 ml/min
[2023-10-26 11:22] LABS: Vancomycin, Trough Level 15.3 ug/mL (5.0-15.0)
[2023-10-26] MEDS: Insulin Lispro 100 UNIT/ML INSULN.PEN SC (11:28)
--- NOTE | 2023-10-26 11:32 | PHA.PHARE_ITS ---
Consult Antibiotic Management Pharmacy has been consulted to manage selected antiobiotic: Vancomycin Type of Intervention Type of Consult: Follow-up Suspected Infection Suspected Infection: Osteomyelitis Prior Doses of Antibiotics Prior Doses of Antibiotics Received/Current Regimen: Vancomycin 1000 mg IV given 10/22 @ 0956, 10/23 @ 0932, 10/24 @ 1159, 10/25 @ 1134 Labs Labs: Sodium 143 mmol/L (136-145) 10/25/23 06:25 Potassium 3.7 mmol/L (3.5-5.1) 10/25/23 06:25 Chloride 112 mmol/L (98-107) H 10/25/23 06:25 Carbon Dioxide 29.0 mmol/L (21.0-32.0) 10/25/23 06:25 Anion Gap 2 (5-15) L 10/25/23 06:25 BUN 14 mg/dL (7-18) 10/25/23 06:25 Creatinine 1.44 mg/dL (0.70-1.30) H 10/26/23 10:26 Est GFR (MDRD) Af Amer 63 mL/min (>60) 10/26/23 10:26 Est GFR (MDRD) Non-Af 52 mL/min (>60) L 10/26/23 10:26 BUN/Creatinine Ratio 9.4 RATIO (10-20) L 10/25/23 06:25 Glucose 82 mg/dL (74-106) 10/25/23 06:25 Vancomycin Trough 15.3 ug/mL (5.0-15.0) H 10/26/23 10:26 Random Vancomycin 16.6 ug/mL (0.0-15.0) H 10/24/23 09:14 Microbiology Microbiology: Microbiology 10/19/23 16:15 Blood Culture (Wb) - Right Hand Blood Culture - Final No growth in 5 days. 10/19/23 15:50 Blood Culture (Wb) - Anticubital Left Blood Culture - Final No growth in 5 days. 10/20/23 Unknown Wound - Left Foot Gram Stain - Final 10/20/23 Unknown Wound - Left Foot Wound Culture - Final Corynebacterium striatum 10/20/23 Unknown Wound - Left Foot Anaerobic Culture - Final No anaerobic bacteria isolated. 10/20/23 Unknown Bone - Other Gram Stain - Final 10/20/23 Unknown Bone - Other Wound Culture - Final Meth. resistant Staph. aureus Corynebacterium striatum 10/20/23 Unknown Bone - Other Anaerobic Culture - Final No anaerobic bacteria isolated. 10/20/23 Unknown Tissue - Other Gram Stain - Final 10/20/23 Unknown Tissue - Other Wound Culture - Final Meth. resistant Staph. aureus Corynebacterium striatum 10/20/23 Unknown Tissue - Other Anaerobic Culture - Final No anaerobic bacteria isolated. Dosing Weight Weight used for dosin.2 kg Estimated Creatinine Clearance Estimated Creatinine Clearance: ~54 Goal Trough Goal Trough: 15-20 mcg/mL Pharmacy Plan for Drug Dosing Pharmacy Plan for Drug Dosing: Vancomycin trough 15.3, will continue 1000 mg Q24H dosing, trough in 4 days. Pharmacy Service will continue to monitor and adjust dosing as required. Follow-Up Labs Follow-Up Labs: Trough: Vancomycin Date/Time Labs Ordered Labs to be done on [date and time ordered]: 10/30/23 @ 1033
[2023-10-26] MEDS: Vancomycin IV 1,000 MG/200 ML BAG 200 MG IV (11:35)
[2023-10-26 12:13] LABS: Bedside Glucose 158 mg/dL (74-106)
--- NOTE | 2023-10-26 12:35 | NURSING ---
Transport here to strip picker pt and take to [place].
== END 2023-10-26 12:50 | disposition skilled nursing facility (03) | DRG 628 ==
LOC: ED 16:09 → MS3 17:53
PROVIDERS: Internal Medicine; Internal Medicine Infectious Disease; Physician Assistant; Podiatrist; Admitting Provider Internal Medicine; Emergency Provider Emergency Medicine; PCP Internal Medicine; Visit Provider Student in an Organized Health Care Education/Training Program
PROC: 0QBM0ZZ Excision of Left Tarsal, Open Approach (ICD-10-PCS; principal; 2023-10-20 07:45)
DX: E11.621 Type 2 diabetes mellitus with foot ulcer (principal); E43 Unspecified severe protein-calorie malnutrition; I13.2 Hypertensive heart and chronic kidney disease with heart failure and with stage 5 chronic kidney disease, or end stage renal disease; L97.424 Non-pressure chronic ulcer of left heel and midfoot with necrosis of bone; I50.32 Chronic diastolic (congestive) heart failure; M86.172 Other acute osteomyelitis, left ankle and foot; N17.9 Acute kidney failure, unspecified; E11.22 Type 2 diabetes mellitus with diabetic chronic kidney disease; B95.62 Methicillin resistant Staphylococcus aureus infection as the cause of diseases classified elsewhere; B96.5 Pseudomonas (aeruginosa) (mallei) (pseudomallei) as the cause of diseases classified elsewhere; J44.9 Chronic obstructive pulmonary disease, unspecified; E11.42 Type 2 diabetes mellitus with diabetic polyneuropathy; E11.51 Type 2 diabetes mellitus with diabetic peripheral angiopathy without gangrene; L97.524 Non-pressure chronic ulcer of other part of left foot with necrosis of bone; Z79.4 Long term (current) use of insulin; N18.6 End stage renal disease; F32.A Depression, unspecified; D64.9 Anemia, unspecified; I25.10 Atherosclerotic heart disease of native coronary artery without angina pectoris; F41.9 Anxiety disorder, unspecified; K21.9 Gastro-esophageal reflux disease without esophagitis; M54.50 Low back pain, unspecified; E78.5 Hyperlipidemia, unspecified; G47.33 Obstructive sleep apnea (adult) (pediatric); F41.8 Other specified anxiety disorders; M25.372 Other instability, left ankle; Z68.35 Body mass index [BMI] 35.0-35.9, adult; Z95.5 Presence of coronary angioplasty implant and graft; Z79.82 Long term (current) use of aspirin; Z79.02 Long term (current) use of antithrombotics/antiplatelets
CPT/HCPCS: 36415; 36569; 71045; 71046; 73620; 73721; 76000; 80048; 80202; 82565; 82962; 83036; 83735; 84100; 85025; 85652; 86140; 87040; 87070; 87075; 87077; 87102; 87186; 87205; 87206; 88304; 88305; 88311; 93005; 97110; 97162; 97166; 97530; 97535; 97802; 97803; 99252; 99284; C1713; J7030; J7040; J7050; J7120; A4216; G0463; J2405

== ENCOUNTER 2023-11-01 01:13 | Emergency (ER) | payer MEDICARE, SELFPAY ==
[2023-11-01 01:15] VITALS: BP 167/94; PULSE 78; RESP 18; TEMP 36.8; O2SAT 92; BMI 39.9
[2023-11-01 01:56] VITALS: BP 179/80; PULSE 75; RESP 16; O2SAT 99
--- NOTE | 2023-11-01 02:01 | CT_ITS ---
INDICATION: abdominal pain EXAMINATION: CT ABDOMEN AND PELVIS WITHOUT CONTRAST - CT Abdomen And Pelvis W/O Contrast Injection TECHNIQUE: Helically acquired images were obtained of the abdomen and pelvis without oral or IV contrast. A radiation dose optimization technique was used for this scan. IV Contrast dosage and agent: None. Oral contrast: None. RADIATION DOSAGE (If Supplied By Facility): CTDIvol = ( 24.17 ) mGy, DLP = ( 1806.37 ) mGycm COMPARISON: Prior study dated: 08/09/2023 FINDINGS: LOWER CHEST: Atelectatic lung at the right base with elevated right hemidiaphragm. Coronary artery calcifications. No cardiomegaly or pericardial effusion. LIVER: The liver is normal in size, shape, and attenuation. No focal mass. GALLBLADDER AND BILIARY TREE: The gallbladder is normally distended. No gallstones. No gallbladder wall thickening or edema. No intra- or extrahepatic biliary ductal dilation. PANCREAS: No focal cystic or solid mass. SPLEEN: Normal size without focal cystic or solid mass. ADRENAL GLANDS: No nodules. KIDNEYS AND URETERS: Normal renal size and position. No hydronephrosis seen. There is mild dilatation of the left renal pelvis with a layering calculus internally measuring 0.8 cm. There is a left lower pole 0.2 cm calculus. No ureteral calculus. No hydroureter. PERITONEUM: No ascites or free air. No other fluid collection. BOWEL: The stomach is unremarkable. Normal caliber small bowel. No obstruction. No colonic wall thickening or inflammatory changes. No evidence of acute appendicitis. LYMPH NODES: No enlarged mesenteric or retroperitoneal lymph nodes. VESSELS: Aorta is non-dilated. Mild atherosclerotic calcification. URINARY BLADDER: Unremarkable. REPRODUCTIVE ORGANS: No pelvic masses. ABDOMINAL WALL: Small fat-containing left inguinal hernia. A portion of the sigmoid colon comes in close proximity to the hernia. BONES: No acute or suspicious osseous abnormality. Degenerative change throughout the spine and of both hips. CT/Abdomen/Pelvis without Cont IMPRESSION: No acute finding in the abdomen or pelvis. There is a layering 0.8 cm calculus in the renal pelvis. This is not currently obstructing. Elevated right hemidiaphragm with associated basilar atelectasis. Electronically Signed: Yao Steen MD at 2:38 EST ,
[2023-11-01] MEDS: LORazepam 1 MG Tablet PO (02:09)
--- NOTE | 2023-11-01 02:10 | EDS_ITS ---
HPI History of Present Illness Chief Complaint: Hypertension Informant: patient Narrative Narrative: 63-year-old male presenting to the emergency room reportedly with concerns for hypertension. In speaking with him he tells me that he was told that if his blood pressure goes higher than 140 he needs to come to the emergency room. He states that he is emotionally very upset that he was staying at [facility] for rehab while he was treated for osteomyelitis of the left foot and is nonambulatory. He states that he hates it there and he fucking hates the food. arrives later in the ED course and tells me that he had similar issues at a different facility in the past. He gets very worked up and has phobias of being taken from the facility. He is supposed to see his surgeon on Wednesday to see if the hardware can be taken off to allow him to progress in his physical therapy. He notes some generalized abdominal pain. He tells me that yesterday he had an x-ray of the abdomen and does not know what it showed. He reports 4 large bowel movements yesterday. No vomiting or fevers. He is currently getting antibiotics both orally and through the PICC line. He is denying symptoms of hypertension such as headache chest pain shortness of breath or neurologic symptoms. [facility] Medical History Acute osteomyelitis of left foot CELESTE (acute kidney injury) Ambulates with cane Amputation of one or more toes Anxiety and depression Arrhythmia Arthritis Aspiration pneumonia Atherosclerotic heart disease of [place] coronary artery without angina pectoris Back pain Back spasm Bilateral leg weakness Blind left eye Blister (nonthermal), left foot, initial encounter Bronchiectasis with (acute) exacerbation Cardiology follow-up encounter Chronic cough Chronic respiratory failure with hypoxia CKD (chronic kidney disease) COPD (chronic obstructive pulmonary disease) Coronary artery disease CPAP (continuous positive airway pressure) dependence Debility, unspecified Decubitus ulcer limited to breakdown of skin (stage 2) Depression Diabetes Diabetes mellitus Essential hypertension Gastric reflux GERD (gastroesophageal reflux disease) High cholesterol History of aspiration pneumonia History of coronary artery disease History of diabetes mellitus History of echocardiogram History of edema History of gout History of heart attack History of non-ST elevation myocardial infarction (NSTEMI) (08/2016) History of pain when walking History of steroid therapy Hx of type 2 diabetes mellitus Hyperglycemia due to type 2 diabetes mellitus Hypertension Insulin dependent diabetes mellitus Irregular heart beat Kidney stones Left ankle instability Leg pain, right Leukocytosis Low back pain Memory impairment Migraines Mood disorder Non healing left heel wound Non-pressure chronic ulcer of other part of left foot with necrosis of bone Non-smoker Noncompliance by declining intervention or support On home oxygen therapy Peripheral vascular disease, unspecified Peripheral vascular occlusive disease Pneumonia Prostate disease Pulmonary nodule, left Recurrent falls Respiratory failure with hypoxia Right ankle pain Right foot pain Shortness of breath on exertion Silent aspiration Sleep apnea Tremor Type 2 diabetes mellitus with diabetic polyneuropathy Type 2 diabetes mellitus with diabetic polyneuropathy Ulcer of left foot, limited to breakdown of skin Vision loss of left eye Wears glasses Wound of left lower extremity Home Medications gauze bandage 4 X 4 (Bordered Gauze) #14 ea 07/03/22 [Rx Last Taken Unknown] walker (Ultra-Light Rollator mis) #1 ea 07/21/22 [Rx Last Taken Unknown] pen needle, diabetic 33 gauge x 5/16 #200 ea 12/02/22 [Rx Last Taken Unknown] fluoxetine 20 mg capsule 20 mg PO DAILY ANXIETY 03/23/23 [History Last Taken 10/19/23] melatonin 3 mg tablet 3 mg PO QHS INSOMNIA 03/23/23 [History Last Taken 10/18/23] atorvastatin 80 mg tablet 80 mg PO QHS CHOLESTEROL 05/25/23 [History Last Taken 10/18/23] fluoxetine 40 mg capsule 40 mg PO DAILY ANXIETY 05/25/23 [History Last Taken 10/19/23] pantoprazole 40 mg tablet,delayed release 40 mg PO DAILY ACID REFLUX 05/25/23 [History Last Taken 10/19/23] trazodone 150 mg tablet 150 mg PO QHS INSOMNIA 05/25/23 [History Last Taken 10/18/23] Wheelchair #1 ea 07/23/23 [Rx Last Taken Unknown] Lift Chair #1 ea 08/06/23 [Rx Last Taken Unknown] bisacodyl 10 mg rectal suppository 10 mg VT DAILY PRN CONSTIPATION 08/28/23 [History Last Taken Unknown] amlodipine 10 mg tablet 10 mg PO BID BLOOD PRESSURE 10/19/23 [History Last Taken 10/19/23] ascorbic acid (vitamin C) 500 mg tablet 500 mg PO BID SUPPLEMENT 10/19/23 [History Last Taken 10/19/23] aspirin 81 mg tablet,delayed release (Ecotrin Low Strength) 81 mg PO DAILY HEART HEALTH 10/19/23 [History Last Taken 10/19/23] clopidogrel 75 mg tablet 75 mg PO QHS BLOOD THINNER 10/19/23 [History Last Taken 10/18/23] glimepiride 2 mg tablet 2 mg PO BID DIABETES 10/19/23 [History Last Taken 10/19/23] haloperidol lactate 2 mg/mL oral concentrate 1 mg PO Q6H PRN AGITATION 10/19/23 [History Last Taken Unknown] hydroxyzine HCl 25 mg tablet 50 mg PO QHS 10/19/23 [History Last Taken 10/18/23] hyoscyamine sulfate 0.125 mg tablet 0.125 mg PO Q4H PRN BLADDER 10/19/23 [History Last Taken Unknown] insulin detemir U-100 100 unit/mL (3 mL) subcutaneous pen (Levemir FlexPen) 25 unit subcut BID DIABETES 10/19/23 [History Last Taken 10/19/23] isosorbide mononitrate 30 mg tablet,extended release 24 hr 30 mg PO DAILY HEART 10/19/23 [History Last Taken 10/19/23] lorazepam 0.5 mg tablet 0.5 mg PO Q4H PRN ANXIETY/AGITATION 10/19/23 [History Last Taken Unknown] magnesium 250 mg tablet 250 mg PO DAILY SUPPLEMENT 10/19/23 [History Last Taken 10/19/23] metoclopramide HCl 5 mg tablet 5 mg PO TID INTESTINES 10/19/23 [History Last Taken 10/19/23] nitroglycerin 0.4 mg sublingual tablet 0.4 mg sublingual Q5M PRN CHEST PAIN 10/19/23 [History Last Taken Unknown] oxycodone 5 mg tablet 5 mg PO Q4H PRN PAIN (PAIN SCORE 6-10) 10/19/23 [History Last Taken 10/16/23] pregabalin 75 mg capsule 75 mg PO Q12H PRN PAIN 10/19/23 [History Last Taken Unknown] sennosides 8.6 mg-docusate sodium 50 mg tablet (Senna Plus) 1 tab-cap PO BID CONSTIPATION 10/19/23 [History Last Taken 10/19/23] tizanidine 2 mg tablet 2 mg PO Q8H PRN MUSCLE SPASMS 10/19/23 [History Last Taken Unknown] flash glucose sensor (FreeStyle Mago 14 Day Sensor kit) 10/20/23 [History Last Taken Unknown] ciprofloxacin HCl 500 mg tablet 500 mg PO BID 14 days #28 tabs 10/25/23 [Rx Last Taken Unknown] oxycodone 5 mg tablet 5 mg PO Q6H PRN pain 3 days #12 tabs 10/25/23 [Rx Last Taken Unknown] vancomycin 1 gram/200 mL in dextrose 5 % intravenous piggyback 1,000 mg IV Q24H 37 days #7,400 mL 10/25/23 [Rx Last Taken Unknown] Allergy/AdvReac Type Severity Reaction Status Date / Time allopurinol AdvReac Vomiting Verified 11/01/23 01:15 Influenza Virus Vaccines AdvReac Vomiting Verified 11/01/23 01:15 pneumococcal vaccine AdvReac Vomiting Verified 11/01/23 01:15 Family History Mother Diabetes Heart disease CHF Father Heart disease CA/CAD Myocardial infarction Surgical History H/O lithotripsy History of angioplasty of peripheral vessel (2016) History of angioplasty of peripheral vessel History of ankle surgery History of cardiac catheterization History of coronary artery stent placement (08/2016) History of coronary artery stent placement History of esophagogastroduodenoscopy (EGD) History of left heart catheterization (11/15/17) History of thyroid surgery Hx of lithotripsy Hx of surgery to heart and great vessels, presenting hazards to health Hx of surgical procedure Hx of thyroidectomy Hx of toe surgery Hx of toe surgery PEG (percutaneous endoscopic gastrostomy) status Social History household members: spouse housing: apartment Smoking Status: Never smoker alcohol intake: never substance use type: does not use ROS ROS ED Constitutional Constitutional ED: Denies chills, fever(s) or weight loss Eyes Eyes: Denies change in vision or diplopia ENT ENT ED: Denies ear pain, rhinorrhea or sore throat Cardiovascular Cardiovascular: Denies chest pain, orthopnea, palpitations or racing heartbeat Respiratory/Chest Respiratory/Chest: Denies cough, dyspnea or orthopnea Gastrointestinal Gastrointestinal: Reports abdominal pain; Denies diarrhea, nausea or vomiting Genitourinary Genitourinary ED: Denies dysuria, hematuria or urinary frequency Musculoskeletal Musculoskeletal: Reports other Details: See HPI ; Denies arthralgias or myalgias Integumentary Denies abscess or rash Neurologic Neurologic: Denies headache(s) or weakness Psychiatric Psychiatric: Denies anxiety, depression, suicidal ideation or suicidal thoughts Endocrine Endocrinology: Denies polydipsia, polyphagia or polyuria Allergic/Immunologic Allergic/Immunologic ED: Denies mouth swelling, tongue swelling or urticaria EXAM Physical Exam Const Vital Signs: 11/01/23 01:15 11/01/23 01:20 11/01/23 01:56 Temperature 98.2 F Temperature Source Temporal Pulse Rate 78 75 Respiratory Rate 18 16 Respiratory Effort Normal Non-Labored Respiratory Pattern Normal Blood Pressure 167/94 H 179/80 H Blood Pressure Mean 118 113 Pulse Ox 92 99 Oxygen Delivery Method Room Air Nasal Cannula Oxygen Flow Rate (L/min) 4 11/01/23 02:11 11/01/23 02:56 11/01/23 03:01 Temperature Temperature Source Pulse Rate 71 83 82 Respiratory Rate 12 20 H 17 Respiratory Effort Respiratory Pattern Blood Pressure 165/86 H 151/77 H 146/73 H Blood Pressure Mean 112 101 97 Pulse Ox 99 96 95 Oxygen Delivery Method Nasal Cannula Nasal Cannula Room Air Oxygen Flow Rate (L/min) 4 4 Positive well nourished, well developed and obese General Appearance ED: well developed Nutritional Appearance: obese HEENT Reports normocephalic, head/scalp atraumatic and moist mucous membranes Eyes PERRL and EOMs intact bilaterally Neck no lymphadenopathy, supple and no JVD Resp normal respiratory effort and clear to auscultation bilaterally Cardio regular rate, regular rhythm and no murmurs GI Inspection: Negative for abdominal distention Auscultation: normoactive bowel sounds Palpation: soft and tender other (Mild diffuse tenderness); Negative for guarding Back/Spine no CVA tenderness and normal ROM Extremity Extremity Narrative: Postoperative changes/surgical hardware left foot and ankle. General Extremety ED: Negative for edema General Extremity: Negative for edema Neuro oriented x3 and CN's II-XII intact bilaterally Sensorium / Orientation: alert Motor Exam: strength 5/5 throughout Psych Mood & Affect: anxious; Negative for depressed or tearful Skin no rashes or lesions noted and no wounds MDM MDM MDM Narrative Medical decision making narrative: Patient received a dose of Ativan. He has been sleeping. Blood pressures have been around 160/70. Patient had mentioned multiple times that his abdomen was hurting particularly on the right side. CT of the abdomen pelvis was obtained which demonstrates no acute findings. I would encourage the patient to utilize his as needed Ativan he has written for him. I spoke with him and his and unfortunately I cannot change his need for a long-term facility at this time. I cannot change their food to his liking. Should he wish to change facilities he has should speak with social work at his facility about options. I am not seeing evidence of hypertensive urgency/emergency. I would recommend monitoring his blood pressure the next couple days to see if med to be adjusted. Radiography Diagnostic Testing: Clinical Impression(s) from Imaging Studies Abdomen/Pelvis CT 11/01/23 02:01 IMPRESSION: No acute finding in the abdomen or pelvis. There is a layering 0.8 cm calculus in the renal pelvis. This is not currently obstructing. Elevated right hemidiaphragm with associated basilar atelectasis. Electronically Signed: Yao Steen MD at 2:38 EST Reading Location ID and State: [id number] [facility] Tel , Service support , Discharge Plan Triage Chief Complaint: Hypertension ED Provider: Jason Bryan Dx/Rx/DC Orders Clinical Impression: Type 2 diabetes mellitus with foot ulcer, Anxiety, Abdominal pain, Hypertension Prescriptions: No Action (DME) Ultra-Light Rollator Misc See Rx Instructions .Route Qty: 1 2RF Rx Instructions: As directed (DME) pen needle, diabetic 33 gauge x 5/16 needle See Rx Instructions .Route Qty: 200 3RF Rx Instructions: As directed melatonin 3 mg tablet 3 mg PO QHS fluoxetine 20 mg capsule 20 mg PO DAILY Patient Comments: TAKE ONE 20MG AND ONE 40MG CAPSULE BY MOUTH ONCE DAILY FOR A TOTAL DOSE OF 60MG (DME) Lift Chair See Rx Instructions .Route .MEDSUPPLY Qty: 1 0RF Rx Instructions: As directed (DME) gauze bandage [Bordered Gauze] 4 X 4 bandage See Rx Instructions .ROUTE .MEDSUPPLY Qty: 14 2RF Rx Instructions: Daily cleanse left foot wound with soap and water, dry and apply Betadine solution and apply clean dressing fluoxetine 40 mg capsule 40 mg PO DAILY Patient Comments: TAKE ONE 20MG AND ONE 40MG CAPSULE BY MOUTH ONCE DAILY FOR A TOTAL DOSE OF 60MG trazodone 150 mg tablet 150 mg PO QHS pantoprazole 40 mg tablet,delayed release (DR/EC) 40 mg PO DAILY atorvastatin 80 mg tablet 80 mg PO QHS bisacodyl 10 mg suppository 10 mg VT DAILY PRN (Reason: CONSTIPATION ) amlodipine 10 mg tablet 10 mg PO BID aspirin [Ecotrin Low Strength] 81 mg tablet,delayed release (DR/EC) 81 mg PO DAILY lorazepam 0.5 mg tablet 0.5 mg PO Q4H PRN (Reason: ANXIETY/AGITATION ) glimepiride 2 mg tablet 2 mg PO BID haloperidol lactate 2 mg/mL concentrate 1 mg PO Q6H PRN (Reason: AGITATION ) hydroxyzine HCl 25 mg tablet 50 mg PO QHS Levemir FlexPen 100 unit/mL (3 mL) insulin pen 25 unit SUBCUT BID magnesium 250 mg tablet 250 mg PO DAILY hyoscyamine sulfate 0.125 mg tablet 0.125 mg PO Q4H PRN (Reason: BLADDER) isosorbide mononitrate 30 mg tablet extended release 24 hr 30 mg PO DAILY metoclopramide HCl 5 mg tablet 5 mg PO TID nitroglycerin 0.4 mg tablet, sublingual 0.4 mg sublingual Q5M PRN (Reason: CHEST PAIN ) oxycodone 5 mg tablet 5 mg PO Q4H PRN (Reason: PAIN (PAIN SCORE 6-10)) sennosides-docusate sodium [Senna Plus] 8.6-50 mg tablet 1 tab-cap PO BID tizanidine 2 mg tablet 2 mg PO Q8H PRN (Reason: MUSCLE SPASMS ) ascorbic acid (vitamin C) 500 mg tablet 500 mg PO BID clopidogrel 75 mg tablet 75 mg PO QHS pregabalin 75 mg Capsule 75 mg PO Q12H PRN (Reason: PAIN ) (DME) FreeStyle Mago 14 Day Sensor Kit See Rx Instructions .Route Rx Instructions: As directed; check BS 3x daily for DMII vancomycin in dextrose 5 % 1 gram/200 mL Piggyback 1,000 mg IV Q24H 37 Days Qty: 7400 0RF Rx Instructions: stop date 12/01/23. dx: foot osteo weekly bmp, cbc, vanc trough, and ESR. Fax to [phone] ciprofloxacin HCl 500 mg Tablet 500 mg PO BID 14 Days Qty: 28 0RF Patient Comments: end date 11/09/23 oxycodone 5 mg tablet 5 mg PO Q6H PRN (Reason: pain) 3 Days Qty: 12 0RF (DME) Wheelchair See Rx Instructions .Route .MEDSUPPLY Qty: 1 0RF Rx Instructions: As directed Primary Care Provider: Doretha Brown Referrals: Doretha Brown MD [Primary Care Provider] - As soon as possible Activity Restrictions/Additional Instructions: Please utilize your as needed Ativan for anxiety. If you wish to consider changing rehabilitation facilities please speak with your social media strategist and your about looking into other options. Disposition Disposition: Home, Self Care
[2023-11-01 02:11] VITALS: BP 165/86; PULSE 71; RESP 12; O2SAT 99
[2023-11-01 02:56] VITALS: BP 151/77; PULSE 83; RESP 20; O2SAT 96
[2023-11-01 03:01] VITALS: BP 146/73; PULSE 82; RESP 17; O2SAT 95
[2023-11-01 04:28] VITALS: BP 158/77; PULSE 83; RESP 16
--- NOTE | 2023-11-01 04:30 | ED.RN ---
REPORT CALLED TO RAMÓN WILKERSON.
== END 2023-11-01 06:42 | disposition home or self-care (01) ==
PROVIDERS: Emergency Provider Emergency Medicine; PCP Internal Medicine; Visit Provider Emergency Medicine
DX: E11.621 Type 2 diabetes mellitus with foot ulcer (principal); L97.509 Non-pressure chronic ulcer of other part of unspecified foot with unspecified severity; J44.9 Chronic obstructive pulmonary disease, unspecified; E11.42 Type 2 diabetes mellitus with diabetic polyneuropathy; E11.22 Type 2 diabetes mellitus with diabetic chronic kidney disease; Z79.4 Long term (current) use of insulin; E78.00 Pure hypercholesterolemia, unspecified; I12.9 Hypertensive chronic kidney disease with stage 1 through stage 4 chronic kidney disease, or unspecified chronic kidney disease; N18.9 Chronic kidney disease, unspecified; I25.10 Atherosclerotic heart disease of native coronary artery without angina pectoris; R10.9 Unspecified abdominal pain; Z99.81 Dependence on supplemental oxygen; I25.2 Old myocardial infarction; I5A Non-ischemic myocardial injury (non-traumatic); F41.8 Other specified anxiety disorders; K21.9 Gastro-esophageal reflux disease without esophagitis; Z79.899 Other long term (current) drug therapy; Z79.02 Long term (current) use of antithrombotics/antiplatelets; Z79.82 Long term (current) use of aspirin; Z79.84 Long term (current) use of oral hypoglycemic drugs; Z95.5 Presence of coronary angioplasty implant and graft
CPT/HCPCS: 74176; 99285; A4216

== ENCOUNTER 2023-11-11 14:32 | Emergency (ER) | payer MEDICARE, MEDICAID, SELFPAY ==
[2023-11-11] VITALS (24 sets, daily range): BP systolic 143–180; BP diastolic 77–152; PULSE 79–97; RESP 14–56; TEMP 36.8; O2SAT 92–98; BMI 38.9
--- NOTE | 2023-11-11 14:41 | EDS_ITS ---
HPI History of Present Illness Chief Complaint: Chest Pain [facility] Medical History Acute osteomyelitis of left foot CELESTE (acute kidney injury) Ambulates with cane Amputation of one or more toes Anxiety and depression Arrhythmia Arthritis Aspiration pneumonia Atherosclerotic heart disease of [place] coronary artery without angina pectoris Back pain Back spasm Bilateral leg weakness Blind left eye Blister (nonthermal), left foot, initial encounter Bronchiectasis with (acute) exacerbation Cardiology follow-up encounter Chronic cough Chronic respiratory failure with hypoxia CKD (chronic kidney disease) COPD (chronic obstructive pulmonary disease) Coronary artery disease CPAP (continuous positive airway pressure) dependence Debility, unspecified Decubitus ulcer limited to breakdown of skin (stage 2) Depression Diabetes Diabetes mellitus Essential hypertension Gastric reflux GERD (gastroesophageal reflux disease) High cholesterol History of aspiration pneumonia History of coronary artery disease History of diabetes mellitus History of echocardiogram History of edema History of gout History of heart attack History of non-ST elevation myocardial infarction (NSTEMI) (08/2016) History of pain when walking History of steroid therapy Hx of type 2 diabetes mellitus Hyperglycemia due to type 2 diabetes mellitus Hypertension Insulin dependent diabetes mellitus Irregular heart beat Kidney stones Left ankle instability Leg pain, right Leukocytosis Low back pain Memory impairment Migraines Mood disorder Non healing left heel wound Non-pressure chronic ulcer of other part of left foot with necrosis of bone Non-smoker Noncompliance by declining intervention or support On home oxygen therapy Peripheral vascular disease, unspecified Peripheral vascular occlusive disease Pneumonia Prostate disease Pulmonary nodule, left Recurrent falls Respiratory failure with hypoxia Right ankle pain Right foot pain Shortness of breath on exertion Silent aspiration Sleep apnea Tremor Type 2 diabetes mellitus with diabetic polyneuropathy Type 2 diabetes mellitus with diabetic polyneuropathy Ulcer of left foot, limited to breakdown of skin Vision loss of left eye Wears glasses Wound of left lower extremity Home Medications gauze bandage 4 X 4 (Bordered Gauze) #14 ea 07/03/22 [Rx Last Taken Unknown] walk[place]Ultra[place] [facility] [place]a 07/21/22 [Rx Last Taken Unknown] pen needle, diabetic 33 gauge x 5/16 #200 ea 12/02/22 [Rx Last Taken Unknown] fluoxetine 20 mg capsule 20 mg PO DAILY ANXIETY 03/23/23 [History Last Taken 10/19/23] melatonin 3 mg tablet 3 mg PO QHS INSOMNIA 03/23/23 [History Last Taken 10/18/23] atorvastatin 80 mg tablet 80 mg PO QHS CHOLESTEROL 05/25/23 [History Last Taken 10/18/23] fluoxetine 40 mg capsule 40 mg PO DAILY ANXIETY 05/25/23 [History Last Taken 10/19/23] pantoprazole 40 mg tablet,delayed release 40 mg PO DAILY ACID REFLUX 05/25/23 [History Last Taken 10/19/23] trazodone 150 mg tablet 150 mg PO QHS INSOMNIA 05/25/23 [History Last Taken 10/18/23] Wheelchair #1 ea 07/23/23 [Rx Last Taken Unknown] Lift Chair #1 ea 08/06/23 [Rx Last Taken Unknown] bisacodyl 10 mg rectal suppository 10 mg CO DAILY PRN CONSTIPATION 08/28/23 [History Last Taken Unknown] amlodipine 10 mg tablet 10 mg PO BID BLOOD PRESSURE 10/19/23 [History Last Taken 10/19/23] ascorbic acid (vitamin C) 500 mg tablet 500 mg PO BID SUPPLEMENT 10/19/23 [History Last Taken 10/19/23] aspirin 81 mg tablet,delayed release (Ecotrin Low Strength) 81 mg PO DAILY HEART HEALTH 10/19/23 [History Last Taken 10/19/23] clopidogrel 75 mg tablet 75 mg PO QHS BLOOD THINNER 10/19/23 [History Last Taken 10/18/23] glimepiride 2 mg tablet 2 mg PO BID DIABETES 10/19/23 [History Last Taken 10/19/23] haloperidol lactate 2 mg/mL oral concentrate 1 mg PO Q6H PRN AGITATION 10/19/23 [History Last Taken Unknown] hydroxyzine HCl 25 mg tablet 50 mg PO QHS 10/19/23 [History Last Taken 10/18/23] hyoscyamine sulfate 0.125 mg tablet 0.125 mg PO Q4H PRN BLADDER 10/19/23 [History Last Taken Unknown] insulin detemir U-100 100 unit/mL (3 mL) subcutaneous pen (Levemir FlexPen) 25 unit subcut BID DIABETES 10/19/23 [History Last Taken 10/19/23] isosorbide mononitrate 30 mg tablet,extended release 24 hr 30 mg PO DAILY HEART 10/19/23 [History Last Taken 10/19/23] lorazepam 0.5 mg tablet 0.5 mg PO Q4H PRN ANXIETY/AGITATION 10/19/23 [History Last Taken Unknown] magnesium 250 mg tablet 250 mg PO DAILY SUPPLEMENT 10/19/23 [History Last Taken 10/19/23] metoclopramide HCl 5 mg tablet 5 mg PO TID INTESTINES 10/19/23 [History Last Taken 10/19/23] nitroglycerin 0.4 mg sublingual tablet 0.4 mg sublingual Q5M PRN CHEST PAIN 10/19/23 [History Last Taken Unknown] oxycodone 5 mg tablet 5 mg PO Q4H PRN PAIN (PAIN SCORE 6-10) 10/19/23 [History Last Taken 10/16/23] pregabalin 75 mg capsule 75 mg PO Q12H PRN PAIN 10/19/23 [History Last Taken Unknown] sennosides 8.6 mg-docusate sodium 50 mg tablet (Senna Plus) 1 tab-cap PO BID CONSTIPATION 10/19/23 [History Last Taken 10/19/23] tizanidine 2 mg tablet 2 mg PO Q8H PRN MUSCLE SPASMS 10/19/23 [History Last Taken Unknown] flash glucose sensor (FreeStyle Mago 14 Day Sensor kit) 10/20/23 [History Last Taken Unknown] ciprofloxacin HCl 500 mg tablet 500 mg PO BID 14 days #28 tabs 10/25/23 [Rx Last Taken Unknown] oxycodone 5 mg tablet 5 mg PO Q6H PRN pain 3 days #12 tabs 10/25/23 [Rx Last Taken Unknown] vancomycin 1 gram/200 mL in dextrose 5 % intravenous piggyback 1,000 mg IV Q24H 37 days #7,400 mL 10/25/23 [Rx Last Taken Unknown] Allergy/AdvReac Type Severity Reaction Status Date / Time allopurinol AdvReac Vomiting Verified 11/11/23 14:33 Influenza Virus Vaccines AdvReac Vomiting Verified 11/11/23 14:33 pneumococcal vaccine AdvReac Vomiting Verified 11/11/23 14:33 Family History Mother Diabetes Heart disease CHF Father Heart disease PA/CAD Myocardial infarction Surgical History H/O lithotripsy History of angioplasty of peripheral vessel (2017) History of angioplasty of peripheral vessel History of ankle surgery History of cardiac catheterization History of coronary artery stent placement (08/2016) History of coronary artery stent placement History of esophagogastroduodenoscopy (EGD) History of left heart catheterization (11/15/17) History of thyroid surgery Hx of lithotripsy Hx of surgery to heart and great vessels, presenting hazards to health Hx of surgical procedure Hx of thyroidectomy Hx of toe surgery Hx of toe surgery PEG (percutaneous endoscopic gastrostomy) status Social History household members: spouse housing: apartment Smoking Status: Never smoker alcohol intake: never substance use type: does not use EXAM Physical Exam Const Vital Signs: 11/11/23 14:33 11/11/23 14:53 11/11/23 14:53 Temperature 98.2 F 98.2 F Temperature Source Oral Oral Pulse Rate 81 81 81 Respiratory Rate 19 H 19 H 19 H Blood Pressure 143/81 H 143/81 H 143/81 H Blood Pressure Mean 101 101 101 Pulse Ox 92 92 92 Oxygen Delivery Method Room Air Room Air Room Air 11/11/23 15:02 11/11/23 15:19 11/11/23 15:20 Temperature Temperature Source Pulse Rate 86 85 Respiratory Rate 21 H 17 Blood Pressure Blood Pressure Mean Pulse Ox 98 94 Oxygen Delivery Method Room Air Room Air 11/11/23 15:30 11/11/23 15:40 11/11/23 15:45 Temperature Temperature Source Pulse Rate 85 83 Respiratory Rate 22 H 16 Blood Pressure 166/80 H 155/82 H Blood Pressure Mean 100 104 Pulse Ox 95 92 Oxygen Delivery Method Room Air 11/11/23 15:50 11/11/23 16:00 11/11/23 16:10 Temperature Temperature Source Pulse Rate 97 85 85 Respiratory Rate 14 22 H 21 H Blood Pressure 160/77 H Blood Pressure Mean 98 Pulse Ox 93 94 94 Oxygen Delivery Method Room Air 11/11/23 16:15 11/11/23 16:20 11/11/23 16:30 Temperature Temperature Source Pulse Rate 80 79 93 Respiratory Rate 33 H 18 56 H Blood Pressure 174/152 H 166/125 H Blood Pressure Mean 159 138 Pulse Ox 94 93 93 Oxygen Delivery Method Room Air 11/11/23 16:40 11/11/23 16:45 11/11/23 16:50 Temperature Temperature Source Pulse Rate 79 90 84 Respiratory Rate 20 H 19 H 17 Blood Pressure Blood Pressure Mean Pulse Ox 92 96 94 Oxygen Delivery Method Room Air 11/11/23 17:00 11/11/23 17:10 11/11/23 17:15 Temperature Temperature Source Pulse Rate 81 82 94 Respiratory Rate 19 H 20 H 16 Blood Pressure 180/99 H 173/95 H Blood Pressure Mean 121 115 Pulse Ox 94 93 93 Oxygen Delivery Method Room Air Room Air 11/11/23 17:20 11/11/23 17:30 11/11/23 17:40 Temperature Temperature Source Pulse Rate 86 Respiratory Rate 19 H 19 H 21 H Blood Pressure 168/78 H Blood Pressure Mean 98 Pulse Ox 93 92 93 Oxygen Delivery Method Room Air 11/11/23 17:45 11/11/23 17:50 Temperature Temperature Source Pulse Rate Respiratory Rate 17 Blood Pressure 175/97 H Blood Pressure Mean 114 Pulse Ox 94 93 Oxygen Delivery Method Heart Score History: Slightly/Non-Suspicious ECG: Normal Age: >45 - <65 years Risk Factors: >/= 3 Risk Factors or History of CAD Troponin: </= Normal Limit Score: 3 MDM MDM MDM Narrative Medical decision making narrative: HISTORY OF PRESENT ILLNESS: 63-year-old male here with concern for chest pain. Notes pain started earlier today and is epigastric. Notes pain is exacerbated by food. Denies any shortness of breath but does note cough. Denies fever or chills. The patient denies recent surgery in the last 4 weeks or immobilization in the last 3 days, denies previous diagnosis of DVT or PE, hemoptysis, unilateral leg swelling or malignancy with treatment the last 6 months or palliative. No estrogen use noted. Patient denies sudden onset of pain, no tearing sensation, no migratory symptoms, no new numbness, weakness or loss of sensation. Patient denies family history or personal history of Connective tissue disorders (Marfan's Syndrome, Ye Danlos etc) REVIEW OF SYSTEMS: Pertinent positives: chest pain, cough, fever Pertinent negatives: Focal weakness, hemoptysis, PHYSICAL EXAM: Nursing triage notes reviewed, Vital signs reviewed Constitutional: please see mdm HENT: MMM Eyes: Pupils equal round and reactive to light, Extraocular muscles intact Neck: No stridor, no JVD, full neck ROM Lungs: Clear to auscultation, No wheezing or rales. No increased work of breathing, no conversational dyspnea, no accessory muscle use, no nasal flaring. No respiratory distress noted Heart: Regular rate and rhythm, No murmurs, No rubs and No gallops, 2+ distal pulses (radial, femoral, posterior tibial) in all extremities Abdomen: Soft, there is no tenderness, rigidity, rebound or guarding, no obvious peritoneal signs, no palpable pulsatile abdominal masses, no auscultated abdominal bruit : No CVAT Extremities: No edema Neuro: No focal neurological deficits, cranial nerves II through XII intact, 5/5 strength in all extremities. Intact sensation to light touch in all extremities, 2+ reflexes bilateral patella tendons. Normal gait. No ataxia. Skin: No rash or lesions noted MEDICAL DECISION MAKING: Chief Complaint: chest pain External records reviewed: Patient records reviewed: Last admission for left calcaneus osteomyelitis. Factious disease recommended PICC line insertion 6 weeks of IV vancomycin patient currently on week 2). Prior stress test reviewed from July 2023 Factors affecting care: Osteomyelitis, type 2 diabetes, PICC line, PEG tube, hyperlipidemia, CAD, hypertension, anemia Social determinants of health: senior living patient History obtained from others: Patient's Consults: none MDM Narrative: I patient presented hemodynamically stable, afebrile. No focal cardiopulmonary normalities. PICC site clean dry intact. Symmetric pulses in all 4 extremities. I considered the following differential diagnosis: Arrhythmia, ACS, gastritis, reflux, pancreatitis, pneumonia, COVID, PE, aortic dissection I initiated a broad lab and imaging workup to further elucidate the etiology of the patient's complaints. I treated the patient with symptomatic treatment including IV Pepcid and Carafate. ALL IMAGES (IF OBTAINED) HAVE BEEN PERSONALLY REVIEWED AND INTERPRETED BY MYSELF. EKG with likely sinus rhythm otherwise difficult due to tach secondary to motion artifact left axis deviation, prolonged QT interval, no obvious STEMI or ischemic changes noted Chest x-ray read/reviewed by myself. Shows no evidence of new intrathoracic abnormality High-sensitivity troponin is negative, no evidence of myocardial ischemia to CBC with leukocytosis suggestive of systemic inflammation likely sequela of known and currently treated osteomyelitis infection, stable anemia, no th rombocytopenia CMP without evidence of acute kidney injury, significant electrolyte abnormality, anion gap, no evidence hepatobiliary pathology. Lipase is wnl indicating no pancreatic inflammation. The synthesis of the patient's history, physical exam, labs images suggest no acute life-limiting process. Heart score 3 low risk I suspect the patient suffering from either gastritis or other [id number] GI illness given exacerbation of pain with food. I do not suspect he is having from ACS. PE less likely given low risk Wells score. Aortic dissection is thought to be less likely given no sudden ripping or tearing pain, migratory pain, palpable pulse inequalities, no focal neurologic deficits concurrent with chest pain. Chance of dissection less than 11/1999. Pericarditis less likely given no pathognomonic EKG changes (no diffuse ST elevations, CO depressions). GI etiology (i.e. Boerhaave syndrome) less likely given no chest or neck crepitus, no vomiting or forced retching. I completed a HEART Score to screen for Major Adverse Cardiac Event (MACE) in this patient. The evidence indicates that the patient is very low risk for MACE and this is consistent with my clinical intuition. The risk of further workup or hospitalization for MACE is likely higher than the risk of the patient having a MACE. It is, therefore, in the patient?s best interest not to do additional emergent testing or to be hospitalized for MACE at this time. Shared Decision-Making No hospitalization indicated I have discussed with the patient my clinical impression and the result of the HEART Score to screen for MACE, as well as the risks of further testing and hospitalization. The HEART Score shows that the risk for MACE is less than 1%. Although the risk of MACE has not been completely eliminated, the risks of further testing or hospitalization for MACE likely exceed any potential benefit, and the patient agrees with not pursuing further emergent evaluation or hospitalization for MACE at this time. The patient and/or family, caregivers express understanding. The patient and/or family, caregivers agrees with the plan. Shared decision making: I will have a discussion with the patient and or visitors regarding risk/benefits of further testing or admission. They will be made aware of of the risk/benefits inherent in this decision they will be given the opportunity to voice understanding. Total critical care time today provided was at least 0 minutes. This excludes separately billable procedures. Critical care time (if documented) is secondary to the patient having high probability of clinically significant/life threatening deterioration in the patient's condition which required my urgent intervention. Impression: 1. Chest pain 2. Epigastric abdominal pain 3. Leukocytosis 4. History of osteomyelitis Dispo: Discharge back to nursing facility Lab Data Attestation: I reviewed the patient's lab results. Labs: Laboratory Results - last 24 hr 11/11/23 11/11/23 15:15 17:15 WBC 12.8 H RBC 3.76 L Hgb 9.7 L Hct 32.1 L MCV 85.4 MCH 25.8 L MCHC 30.2 L RDW Std Deviation 46.4 H RDW Coeff of James 14.8 H Plt Count 255 MPV 10.6 Immature Gran % (Auto) 0.500 Neut % (Auto) 75.1 H Lymph % (Auto) 12.4 L [place] % (Auto) 9.5 Eos % (Auto) 2.0 Baso % (Auto) 0.5 Absolute Neuts (auto) 9.6 H Absolute Lymphs (auto) 1.58 Nucleated RBC % 0 Sodium 139 Potassium 3.5 Chloride 106 Carbon Dioxide 30.0 Anion Gap 3 L BUN 12 Creatinine 1.39 H Estim Creat Clear Calc 55.44 Est GFR (MDRD) Af Amer 66 Est GFR (MDRD) Non-Af 55 L BUN/Creatinine Ratio 8.6 L Glucose 181 H Calcium 8.7 Total Bilirubin 0.60 Direct Bilirubin 0.19 AST 17 ALT 15 L Alkaline Phosphatase 99 Troponin I High Sens 20 21 Total Protein 6.4 Albumin 2.7 L Globulin 3.7 Lipase 15 Radiography Chest X-Ray - ED: Read by ED Physician Diagnostic Testing: Clinical Impression(s) from Imaging Studies Chest X-Ray 11/11/23 15:18 IMPRESSION: Stable elevation of the right hemidiaphragm with mild right basilar atelectasis. The tip of the left PICC line catheter is at the junction of the superior vena cava and right atrium. Electronically Signed: Den Carver MD at 15:31 EST , Discharge Plan Triage Chief Complaint: Chest Pain ED Provider: Reno Clark Dx/Rx/DC Orders Instructions: ED Epigastric Pain Uncertain Cause, Chest Pain [facility] Prescriptions: No Action (DME) Ultra-Light Rollator Misc See Rx Instructions .Route Qty: 1 2RF Rx Instructions: As directed (DME) pen needle, diabetic 33 gauge x 5/16 needle See Rx Instructions .Route Qty: 200 3RF Rx Instructions: As directed melatonin 3 mg tablet 3 mg PO QHS fluoxetine 20 mg capsule 20 mg PO DAILY Patient Comments: TAKE ONE 20MG AND ONE 40MG CAPSULE BY MOUTH ONCE DAILY FOR A TOTAL DOSE OF 60MG (DME) Lift Chair See Rx Instructions .Route .MEDSUPPLY Qty: 1 0RF Rx Instructions: As directed (DME) gauze bandage [Bordered Gauze] 4 X 4 bandage See Rx Instructions .ROUTE .MEDSUPPLY Qty: 14 2RF Rx Instructions: Daily cleanse left foot wound with soap and water, dry and apply Betadine solution and apply clean dressing fluoxetine 40 mg capsule 40 mg PO DAILY Patient Comments: TAKE ONE 20MG AND ONE 40MG CAPSULE BY MOUTH ONCE DAILY FOR A TOTAL DOSE OF 60MG trazodone 150 mg tablet 150 mg PO QHS pantoprazole 40 mg tablet,delayed release (DR/EC) 40 mg PO DAILY atorvastatin 80 mg tablet 80 mg PO QHS bisacodyl 10 mg suppository 10 mg CO DAILY PRN (Reason: CONSTIPATION ) amlodipine 10 mg tablet 10 mg PO BID aspirin [Ecotrin Low Strength] 81 mg tablet,delayed release (DR/EC) 81 mg PO DAILY lorazepam 0.5 mg tablet 0.5 mg PO Q4H PRN (Reason: ANXIETY/AGITATION ) glimepiride 2 mg tablet 2 mg PO BID haloperidol lactate 2 mg/mL concentrate 1 mg PO Q6H PRN (Reason: AGITATION ) hydroxyzine HCl 25 mg tablet 50 mg PO QHS Levemir FlexPen 100 unit/mL (3 mL) insulin pen 25 unit SUBCUT BID magnesium 250 mg tablet 250 mg PO DAILY hyoscyamine sulfate 0.125 mg tablet 0.125 mg PO Q4H PRN (Reason: BLADDER) isosorbide mononitrate 30 mg tablet extended release 24 hr 30 mg PO DAILY metoclopramide HCl 5 mg tablet 5 mg PO TID nitroglycerin 0.4 mg tablet, sublingual 0.4 mg sublingual Q5M PRN (Reason: CHEST PAIN ) oxycodone 5 mg tablet 5 mg PO Q4H PRN (Reason: PAIN (PAIN SCORE 6-10)) sennosides-docusate sodium [Senna Plus] 8.6-50 mg tablet 1 tab-cap PO BID tizanidine 2 mg tablet 2 mg PO Q8H PRN (Reason: MUSCLE SPASMS ) ascorbic acid (vitamin C) 500 mg tablet 500 mg PO BID clopidogrel 75 mg tablet 75 mg PO QHS pregabalin 75 mg Capsule 75 mg PO Q12H PRN (Reason: PAIN ) (DME) FreeStyle Mago 14 Day Sensor Kit See Rx Instructions .Route Rx Instructions: As directed; check BS 3x daily for DMII vancomycin in dextrose 5 % 1 gram/200 mL Piggyback 1,000 mg IV Q24H 37 Days Qty: 7400 0RF Rx Instructions: stop date 12/01/23. dx: foot osteo weekly bmp, cbc, vanc trough, and ESR. Fax to [phone] ciprofloxacin HCl 500 mg Tablet 500 mg PO BID 14 Days Qty: 28 0RF Patient Comments: end date 11/09/23 oxycodone 5 mg tablet 5 mg PO Q6H PRN (Reason: pain) 3 Days Qty: 12 0RF (DME) Wheelchair See Rx Instructions .Route .MEDSUPPLY Qty: 1 0RF Rx Instructions: As directed Primary Care Provider: Doretha Brown Referrals: Doretha Brown MD [Primary Care Provider] - Activity Restrictions/Additional Instructions: Thank you for trusting us with your care today! Please take Tylenol (2 pills, 650 mg), ibuprofen (2 pills, 400 mg) every 6 hours as needed for pain and fever control. Please return to the emergency department if your symptoms change or worsen. Please follow with your primary care physician for further outpatient evaluation and management. Disposition Disposition: Home, Self Care
--- NOTE | 2023-11-11 15:18 | RAD_ITS ---
STUDY: X-RAY CHEST REASON FOR EXAM: Male, 63 years old. Chest pain TECHNIQUE: Single AP portable view of the chest. COMPARISON: Comparison is made with prior study dated October 25, 2023. FINDINGS: EKG electrodes are seen. A left-sided PICC line catheter is seen with the tip at the junction of the superior vena cava and right atrium. Stable elevation of the right hemidiaphragm. Mild right basilar atelectasis. This is unchanged. There is no demonstrated pleural abnormality. Normal size heart. Normal mediastinum and pat. Normal visualized pulmonary arteries. Normal visualized aortic arch and descending thoracic aorta. There are diffuse degenerative changes of the visualized thoracic spine. Normal visualized ribs, clavicles, and shoulders. There is no demonstrated abnormality of the visualized soft tissue structures of the upper abdomen. RAD/Chest 1 View (Portable) IMPRESSION: Stable elevation of the right hemidiaphragm with mild right basilar atelectasis. The tip of the left PICC line catheter is at the junction of the superior vena cava and right atrium. Electronically Signed: Den Carver MD at 15:31 EST ,
[2023-11-11] MEDS: Sucralfate 1 GM Tablet PO (15:24)
[2023-11-11] MEDS: Famotidine 200 MG/20 ML MDV 20 MG in 0.9% Normal Saline (Pres. free 8 ML 300 MG IV (15:24)
[2023-11-11 15:39] LABS: Absolute Lymphocyte Count 1.58 X10^3/uL (0.83-4.51); Absolute Neutrophil Count 9.6 X10^3/uL (2.0-7.7); Basophil# 0.06 X10^3/uL; Basophil% 0.5 % (0-1); Eosinophil# 0.25 X10^3/uL; Hematocrit 32.1 % (40-54); Hemoglobin 9.7 g/dL (13.0-16.5); Lymphocyte # 1.58 X10^3/ul (0.83-4.51); Lymphocyte % 12.4 % (19-41); Mean Corp Hgb Conc 30.2 g/dL (32-36); Mean Corpuscular Hgb 25.8 pg (27.0-32.0); Mean Corpuscular Volume 85.4 fL (80-94); Mean Platelet Vol. 10.6 fl (6.2-12.0); Monocyte# 1.21 X10^3/uL; Monocyte% 9.5 % (0-10); NRBC Flagged by Analyzer 0 % (0-5); Neutrophil # 9.59 X10^3/uL (2.7-7.7); Neutrophil % 75.1 % (47-70); Platelet Count 255 K/mm3 (150-450); RBC Distribution Width CV 14.8 % (11.6-14.6); RBC Distribution Width SD 46.4 fl (35.1-43.9); Red Blood Count 3.76 M/mm3 (4.6-6.2); White Blood Count 12.8 K/mm3 (4.4-11.0)
[2023-11-11 15:56] LABS: AST(SGOT) 17 U/L (15-37); Alanine Aminotransfer ALT/SGPT 15 U/L (16-61); Albumin, Serum 2.7 g/dL (3.2-5.0); Alkaline Phosphatase 99 U/L (45-117); Anion Gap 3 (5-15); BUN 12 mg/dL (7-18); BUN/Creat Ratio 8.6 RATIO (10-20); Bilirubin, Direct 0.19 mg/dL (0.00-0.30); Calcium,Total 8.7 mg/dL (8.5-10.1); Chloride 106 mmol/L (98-107); Creatinine, Serum 1.39 mg/dL (0.70-1.30); EST Glomerular Filtration Rate 55 mL/min (>60); Est Glom Filt Rate - Afr Amer 66 mL/min (>60); Estimated Creatinine Clearance 55.44 ml/min; Globulin 3.7 g/dL (2.2-4.2); Glucose 181 mg/dL (74-106); Lipase 15 U/L (13-75); Potassium 3.5 mmol/L (3.5-5.1); Protein, Total 6.4 g/dL (6.4-8.2); Sodium Level 139 mmol/L (136-145); Troponin-I HS (w/2H Reflex) 20 pg/mL (3.0-78.0)
[2023-11-11 17:21] LABS: Reflex Troponin-HS? (from REC) Y
[2023-11-11 17:37] LABS: Troponin-I HS 21 pg/mL (3.0-78.0)
--- NOTE | 2023-11-11 18:02 | ED.RN ---
[facility] CALLED, ETA [id number]
== END 2023-11-11 18:57 | disposition home or self-care (01) ==
PROVIDERS: Emergency Provider Emergency Medicine; PCP Internal Medicine; Visit Provider Emergency Medicine
DX: R07.9 Chest pain, unspecified (principal); Z93.1 Gastrostomy status; M86.9 Osteomyelitis, unspecified; J44.9 Chronic obstructive pulmonary disease, unspecified; E11.42 Type 2 diabetes mellitus with diabetic polyneuropathy; E11.22 Type 2 diabetes mellitus with diabetic chronic kidney disease; E11.69 Type 2 diabetes mellitus with other specified complication; Z79.4 Long term (current) use of insulin; I12.9 Hypertensive chronic kidney disease with stage 1 through stage 4 chronic kidney disease, or unspecified chronic kidney disease; I25.10 Atherosclerotic heart disease of native coronary artery without angina pectoris; D72.829 Elevated white blood cell count, unspecified; E78.00 Pure hypercholesterolemia, unspecified; R10.13 Epigastric pain; D64.9 Anemia, unspecified; N18.9 Chronic kidney disease, unspecified; Z99.89 Dependence on other enabling machines and devices; F41.8 Other specified anxiety disorders; K21.9 Gastro-esophageal reflux disease without esophagitis; Z79.899 Other long term (current) drug therapy; Z79.82 Long term (current) use of aspirin; Z79.02 Long term (current) use of antithrombotics/antiplatelets; Z79.84 Long term (current) use of oral hypoglycemic drugs; Z95.5 Presence of coronary angioplasty implant and graft; Z95.9 Presence of cardiac and vascular implant and graft, unspecified
CPT/HCPCS: 36592; 71045; 80048; 80076; 83690; 84484; 85025; 87428; 93005; 96374; 99283; A4216; J3490

== ENCOUNTER 2023-11-12 05:41 | Emergency (ER) | payer MEDICARE, MEDICAID, SELFPAY ==
[2023-11-12 05:42] VITALS: BP 163/85; PULSE 72; RESP 18; TEMP 36.7; O2SAT 94; BMI 38.1
--- NOTE | 2023-11-12 06:23 | EX.ED.DYSGE1 ---
HPI History of Present Illness Chief Complaint: Wound Check Informant: patient and spouse/S.O. Narrative Narrative: Brought in by EMS from snf facility for wound check. Osteomyelitis to the left heel he was admitted to the with surgery and X fixation. He is followed by podiatry Dr. Hess. From records positive MRSA. He finishes Cipro he is currently on vancomycin once a day. Denies fever or chills. 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 Nurse changes the dressing in between. Reported yesterday with dressing changes was told that the wound looked infected. Nursing did not relate to his specialist. He was sent to the ED this morning for evaluation. Diabetic with neuropathy. [facility] Medical History Acute osteomyelitis of left foot CELESTE (acute kidney injury) Ambulates with cane Amputation of one or more toes Anxiety and depression Arrhythmia Arthritis Aspiration pneumonia Atherosclerotic heart disease of [place] coronary artery without angina pectoris Back pain Back spasm Bilateral leg weakness Blind left eye Blister (nonthermal), left foot, initial encounter Bronchiectasis with (acute) exacerbation Cardiology follow-up encounter Chronic cough Chronic respiratory failure with hypoxia CKD (chronic kidney disease) COPD (chronic obstructive pulmonary disease) Coronary artery disease CPAP (continuous positive airway pressure) dependence Debility, unspecified Decubitus ulcer limited to breakdown of skin (stage 2) Depression Diabetes Diabetes mellitus Essential hypertension Gastric reflux GERD (gastroesophageal reflux disease) High cholesterol History of aspiration pneumonia History of coronary artery disease History of diabetes mellitus History of echocardiogram History of edema History of gout History of heart attack History of non-ST elevation myocardial infarction (NSTEMI) (08/2016) History of pain when walking History of steroid therapy Hx of type 2 diabetes mellitus Hyperglycemia due to type 2 diabetes mellitus Hypertension Insulin dependent diabetes mellitus Irregular heart beat Kidney stones Left ankle instability Leg pain, right Leukocytosis Low back pain Memory impairment Migraines Mood disorder Non healing left heel wound Non-pressure chronic ulcer of other part of left foot with necrosis of bone Non-smoker Noncompliance by declining intervention or support On home oxygen therapy Peripheral vascular disease, unspecified Peripheral vascular occlusive disease Pneumonia Prostate disease Pulmonary nodule, left Recurrent falls Respiratory failure with hypoxia Right ankle pain Right foot pain Shortness of breath on exertion Silent aspiration Sleep apnea Tremor Type 2 diabetes mellitus with diabetic polyneuropathy Type 2 diabetes mellitus with diabetic polyneuropathy Ulcer of left foot, limited to breakdown of skin Vision loss of left eye Wears glasses Wound of left lower extremity Home Medications gauze bandage 4 X 4 (Bordered Gauze) #14 ea 07/03/22 [Rx Last Taken Unknown] walker (Ultra-Light Rollator [facility]) #1 ea 07/21/22 [Rx Last Taken Unknown] pen needle, diabetic 33 gauge x 5/16 #200 ea 12/02/22 [Rx Last Taken Unknown] fluoxetine 20 mg capsule 20 mg PO DAILY ANXIETY 03/23/23 [History Last Taken 10/19/23] melatonin 3 mg tablet 3 mg PO QHS INSOMNIA 03/23/23 [History Last Taken 10/18/23] atorvastatin 80 mg tablet 80 mg PO QHS CHOLESTEROL 05/25/23 [History Last Taken 10/18/23] fluoxetine 40 mg capsule 40 mg PO DAILY ANXIETY 05/25/23 [History Last Taken 10/19/23] pantoprazole 40 mg tablet,delayed release 40 mg PO DAILY ACID REFLUX 05/25/23 [History Last Taken 10/19/23] trazodone 150 mg tablet 150 mg PO QHS INSOMNIA 05/25/23 [History Last Taken 10/18/23] Wheelchair #1 ea 07/23/23 [Rx Last Taken Unknown] Lift Chair #1 ea 08/06/23 [Rx Last Taken Unknown] bisacodyl 10 mg rectal suppository 10 mg DE DAILY PRN CONSTIPATION 08/28/23 [History Last Taken Unknown] amlodipine 10 mg tablet 10 mg PO BID BLOOD PRESSURE 10/19/23 [History Last Taken 10/19/23] ascorbic acid (vitamin C) 500 mg tablet 500 mg PO BID SUPPLEMENT 10/19/23 [History Last Taken 10/19/23] aspirin 81 mg tablet,delayed release (Ecotrin Low Strength) 81 mg PO DAILY HEART HEALTH 10/19/23 [History Last Taken 10/19/23] clopidogrel 75 mg tablet 75 mg PO QHS BLOOD THINNER 10/19/23 [History Last Taken 10/18/23] glimepiride 2 mg tablet 2 mg PO BID DIABETES 10/19/23 [History Last Taken 10/19/23] hydroxyzine HCl 25 mg tablet 50 mg PO QHS 10/19/23 [History Last Taken 10/18/23] hyoscyamine sulfate 0.125 mg tablet 0.125 mg PO Q4H PRN BLADDER 10/19/23 [History Last Taken Unknown] insulin detemir U-100 100 unit/mL (3 mL) subcutaneous pen (Levemir FlexPen) 25 unit subcut BID DIABETES 10/19/23 [History Last Taken 10/19/23] isosorbide mononitrate 30 mg tablet,extended release 24 hr 30 mg PO DAILY HEART 10/19/23 [History Last Taken 10/19/23] lorazepam 0.5 mg tablet 0.5 mg PO Q4H PRN ANXIETY/AGITATION 10/19/23 [History Last Taken Unknown] magnesium 250 mg tablet 250 mg PO DAILY SUPPLEMENT 10/19/23 [History Last Taken 10/19/23] metoclopramide HCl 5 mg tablet 5 mg PO TID INTESTINES 10/19/23 [History Last Taken 10/19/23] nitroglycerin 0.4 mg sublingual tablet 0.4 mg sublingual Q5M PRN CHEST PAIN 10/19/23 [History Last Taken Unknown] pregabalin 75 mg capsule 75 mg PO Q12H PRN PAIN 10/19/23 [History Last Taken Unknown] sennosides 8.6 mg-docusate sodium 50 mg tablet (Senna Plus) 1 tab-cap PO BID CONSTIPATION 10/19/23 [History Last Taken 10/19/23] tizanidine 2 mg tablet 2 mg PO Q8H PRN MUSCLE SPASMS 10/19/23 [History Last Taken Unknown] flash glucose sensor (FreeStyle Mago 14 Day Sensor kit) 10/20/23 [History Last Taken Unknown] ciprofloxacin HCl 500 mg tablet 500 mg PO BID 14 days #28 tabs 10/25/23 [Rx Last Taken Unknown] oxycodone 5 mg tablet 5 mg PO Q6H PRN pain 3 days #12 tabs 10/25/23 [Rx Last Taken Unknown] vancomycin 1 gram/200 mL in dextrose 5 % intravenous piggyback 1,000 mg IV Q24H 37 days #7,400 mL 10/25/23 [Rx Last Taken Unknown] dextrose 40 % oral gel (Gluco Burst) 15 g PO Q15M PRN hypoglycemia 11/12/23 [History Last Taken Unknown] glucagon HCl 1 mg solution for injection (Glucagon (HCl) Emergency Kit) 1 mg IM Q15M PRN hypoglycemia 11/12/23 [History Last Taken Unknown] Allergy/AdvReac Type Severity Reaction Status Date / Time allopurinol AdvReac Vomiting Verified 11/12/23 05:52 Influenza Virus Vaccines AdvReac Vomiting Verified 11/12/23 05:52 pneumococcal vaccine AdvReac Vomiting Verified 11/12/23 05:52 Family History Mother Diabetes Heart disease CHF Father Heart disease NC/CAD Myocardial infarction Surgical History H/O lithotripsy History of angioplasty of peripheral vessel (2016) History of angioplasty of peripheral vessel History of ankle surgery History of cardiac catheterization History of coronary artery stent placement (08/2016) History of coronary artery stent placement History of esophagogastroduodenoscopy (EGD) History of left heart catheterization (11/15/17) History of thyroid surgery Hx of lithotripsy Hx of surgery to heart and great vessels, presenting hazards to health Hx of surgical procedure Hx of thyroidectomy Hx of toe surgery Hx of toe surgery PEG (percutaneous endoscopic gastrostomy) status Social History household members: spouse housing: apartment Smoking Status: Never smoker alcohol intake: never substance use type: does not use ROS ROS ED Constitutional Constitutional ED: Denies chills, fever(s) or sweats Eyes Eyes: Denies change in vision ENT ENT ED: Denies dysphagia or sore throat Cardiovascular Cardiovascular: Denies chest pain, leg edema, palpitations or racing heartbeat Respiratory/Chest Respiratory/Chest: Denies cough, dyspnea or dyspnea on exertion Gastrointestinal Gastrointestinal: Denies abdominal pain, diarrhea, nausea or vomiting Genitourinary Genitourinary ED: Denies dysuria, hematuria or urinary frequency Musculoskeletal Musculoskeletal: Denies back pain, extremity pain or neck pain Integumentary Reports wounds; Denies rash Neurologic Neurologic: Denies headache(s), paresthesias or weakness EXAM Physical Exam Const Vital Signs: 11/12/23 05:42 Temperature 98.1 F Temperature Source Temporal Pulse Rate 72 Respiratory Rate 18 Blood Pressure 163/85 H Blood Pressure Mean 111 Pulse Ox 94 Positive well nourished and well developed General Appearance ED: well developed and NAD HEENT Reports moist mucous membranes normocephalic and atraumatic Eyes PERRL, EOMs intact bilaterally and conjunctivae normal General Eye ED: Yes normal appearance of both eyes Neck no lymphadenopathy and supple General: Negative for tenderness Chest Wall Chest: Negative for tenderness Resp normal respiratory effort and normal air movement Effort and Inspection: symmetric chest movement; Negative for respiratory distress Cardio regular rate, regular rhythm and no murmurs Peripheral Pulses: pulses 2+ throughout GI normal to inspection, nondistended, normoactive bowel sounds and non-tender Palpation: Negative for guarding or rebound tenderness present Extremity Extremity Narrative: Left lower extremity: X fixation of the lower leg, dressing removed, open wound at the heel with eschar granulations in the middle, no active drainage. No streaking. General Extremety ED: Negative for edema or tenderness General Extremity: Negative for edema Neuro oriented x3 and no sensory deficits noted Sensorium / Orientation: awake and alert Skin Skin Narrative: See above MDM MDM MDM Narrative Medical decision making narrative: Interventions / MDM: Differential diagnosis: Wound check, osteomyelitis left heel secondary to MRSA Diagnosis considered but do not suspect: N/A My EKG interpretation: N/A Imaging independently reviewed and interpreted by myself: N/A External documents reviewed: N/A Test considered but not ordered:N/A ED course: Vital stable afebrile. No fever or chills. Photos were taken and sent through the back lying to his marine mammal trainer Dr. Hess, he reviewed the images, reassured not infected. He will continue his IV vancomycin. His wound was redressed with Xeroform dressing. He will keep his follow-up upcoming Wednesday to be seen for another wound check. All questions were answered. Re-evaluation: stable Disposition discussed with patient/family/significant other: Patient and significant other Case discussed with consulting clinician: N/A This note was generated with [employer] dictation software. It may contain incorrect words, spelling, and punctuation that were not noted in checking the note before signing. Discharge Plan Triage Chief Complaint: Wound Check ED Provider: Genaro Moncada Dx/Rx/DC Orders Clinical Impression: Visit for wound check, Infection of wound due to methicillin resistant Staphylococcus aureus (MRSA), Foot osteomyelitis, left Instructions: ED Wound Check (No Infection) Prescriptions: No Action (DME) Ultra-Light Rollator Misc See Rx Instructions .Route Qty: 1 2RF Rx Instructions: As directed (DME) pen needle, diabetic 33 gauge x 5/16 needle See Rx Instructions .Route Qty: 200 3RF Rx Instructions: As directed melatonin 3 mg tablet 3 mg PO QHS fluoxetine 20 mg capsule 20 mg PO DAILY Patient Comments: TAKE ONE 20MG AND ONE 40MG CAPSULE BY MOUTH ONCE DAILY FOR A TOTAL DOSE OF 60MG (DME) Lift Chair See Rx Instructions .Route .MEDSUPPLY Qty: 1 0RF Rx Instructions: As directed (DME) gauze bandage [Bordered Gauze] 4 X 4 bandage See Rx Instructions .ROUTE .MEDSUPPLY Qty: 14 2RF Rx Instructions: Daily cleanse left foot wound with soap and water, dry and apply Betadine solution and apply clean dressing fluoxetine 40 mg capsule 40 mg PO DAILY Patient Comments: TAKE ONE 20MG AND ONE 40MG CAPSULE BY MOUTH ONCE DAILY FOR A TOTAL DOSE OF 60MG trazodone 150 mg tablet 150 mg PO QHS pantoprazole 40 mg tablet,delayed release (DR/EC) 40 mg PO DAILY atorvastatin 80 mg tablet 80 mg PO QHS bisacodyl 10 mg suppository 10 mg DE DAILY PRN (Reason: CONSTIPATION ) amlodipine 10 mg tablet 10 mg PO BID aspirin [Ecotrin Low Strength] 81 mg tablet,delayed release (DR/EC) 81 mg PO DAILY lorazepam 0.5 mg tablet 0.5 mg PO Q4H PRN (Reason: ANXIETY/AGITATION ) glimepiride 2 mg tablet 2 mg PO BID hydroxyzine HCl 25 mg tablet 50 mg PO QHS Levemir FlexPen 100 unit/mL (3 mL) insulin pen 25 unit SUBCUT BID magnesium 250 mg tablet 250 mg PO DAILY hyoscyamine sulfate 0.125 mg tablet 0.125 mg PO Q4H PRN (Reason: BLADDER) isosorbide mononitrate 30 mg tablet extended release 24 hr 30 mg PO DAILY metoclopramide HCl 5 mg tablet 5 mg PO TID nitroglycerin 0.4 mg tablet, sublingual 0.4 mg sublingual Q5M PRN (Reason: CHEST PAIN ) sennosides-docusate sodium [Senna Plus] 8.6-50 mg tablet 1 tab-cap PO BID tizanidine 2 mg tablet 2 mg PO Q8H PRN (Reason: MUSCLE SPASMS ) ascorbic acid (vitamin C) 500 mg tablet 500 mg PO BID clopidogrel 75 mg tablet 75 mg PO QHS pregabalin 75 mg Capsule 75 mg PO Q12H PRN (Reason: PAIN ) (DME) FreeStyle Mago 14 Day Sensor Kit See Rx Instructions .Route Rx Instructions: As directed; check BS 3x daily for DMII vancomycin in dextrose 5 % 1 gram/200 mL Piggyback 1,000 mg IV Q24H 37 Days Qty: 7400 0RF Rx Instructions: stop date 12/01/23. dx: foot osteo weekly bmp, cbc, vanc trough, and ESR. Fax to [phone] ciprofloxacin HCl 500 mg Tablet 500 mg PO BID 14 Days Qty: 28 0RF Patient Comments: end date 11/09/23 oxycodone 5 mg tablet 5 mg PO Q6H PRN (Reason: pain) 3 Days Qty: 12 0RF glucagon HCl [Glucagon (HCl) Emergency Kit] 1 mg recon soln 1 mg IM Q15M PRN (Reason: hypoglycemia) Rx Instructions: until target blood sugar attained dextrose [Gluco Burst] 40 % gel 15 g PO Q15M PRN (Reason: hypoglycemia) Rx Instructions: until symptoms of low blood sugar are controlled (DME) Wheelchair See Rx Instructions .Route .MEDSUPPLY Qty: 1 0RF Rx Instructions: As directed Primary Care Provider: Doretha Brown Referrals: Jason Hess DPM [Med Staff - Active Staff] - Keep Derian appointment Doretha Brown MD [Primary Care Provider] - Activity Restrictions/Additional Instructions: Photos were sent to your surgeon Dr. Hess, reassured. Continue wound care. Keep your follow-up with him. Disposition Disposition: Home, Self Care
== END 2023-11-12 06:54 | disposition home or self-care (01) ==
PROVIDERS: Emergency Provider Emergency Medicine; PCP Internal Medicine; Visit Provider Emergency Medicine
DX: Z51.89 Encounter for other specified aftercare (principal); E11.51 Type 2 diabetes mellitus with diabetic peripheral angiopathy without gangrene; M86.8X7 Other osteomyelitis, ankle and foot; J44.9 Chronic obstructive pulmonary disease, unspecified; E11.69 Type 2 diabetes mellitus with other specified complication; E11.42 Type 2 diabetes mellitus with diabetic polyneuropathy; E11.22 Type 2 diabetes mellitus with diabetic chronic kidney disease; Z79.4 Long term (current) use of insulin; N18.9 Chronic kidney disease, unspecified; I25.10 Atherosclerotic heart disease of native coronary artery without angina pectoris; B95.62 Methicillin resistant Staphylococcus aureus infection as the cause of diseases classified elsewhere; E78.00 Pure hypercholesterolemia, unspecified; I12.9 Hypertensive chronic kidney disease with stage 1 through stage 4 chronic kidney disease, or unspecified chronic kidney disease; Z99.89 Dependence on other enabling machines and devices; I25.2 Old myocardial infarction; I5A Non-ischemic myocardial injury (non-traumatic); F41.8 Other specified anxiety disorders; K21.9 Gastro-esophageal reflux disease without esophagitis; Z79.899 Other long term (current) drug therapy; Z79.82 Long term (current) use of aspirin; Z79.02 Long term (current) use of antithrombotics/antiplatelets; Z79.84 Long term (current) use of oral hypoglycemic drugs
CPT/HCPCS: 99282

== ENCOUNTER 2023-11-14 13:39 | Emergency (ER) | payer MEDICARE, MEDICAID, SELFPAY ==
[2023-11-14 13:40] VITALS: BP 139/80; PULSE 82; RESP 15; TEMP 37.1; O2SAT 93; BMI 37.1
[2023-11-14 13:46] VITALS: BP 148/88; PULSE 96; RESP 18; O2SAT 95
--- NOTE | 2023-11-14 14:22 | RAD_ITS ---
EXAM: XR LEFT FOOT COMPLETE, 3 OR MORE VIEWS CLINICAL INDICATION: pain TECHNIQUE: Frontal, lateral and oblique views of the left foot. COMPARISON: 10/20/2023 FINDINGS: BONES/JOINTS: 2 screws transfixing the medial malleolus. No acute fracture. No subluxation. Normal alignment. Preservation of the joint space. No sclerotic or destructive changes observed. SOFT TISSUES: Vascular calcifications. Skin annette in place. No soft tissue swelling or gas. No radiopaque foreign body. OTHER FINDINGS: External fixator in place. RAD/Foot min 3 Views IMPRESSION: No acute findings in the left foot. Electronically Signed: German Lee MD at 14:51 EST Reading Location ID and State: [facility] / [place] , Service support ,
[2023-11-14 14:53] LABS: Absolute Lymphocyte Count 1.82 X10^3/uL (0.83-4.51); Absolute Neutrophil Count 9.3 X10^3/uL (2.0-7.7); Basophil# 0.11 X10^3/uL; Basophil% 0.8 % (0-1); Eosinophil# 0.29 X10^3/uL; Eosinophils% 2.2 % (0-5); Hemoglobin 9.6 g/dL (13.0-16.5); Lymphocyte # 1.82 X10^3/ul (0.83-4.51); Lymphocyte % 13.9 % (19-41); Mean Corpuscular Hgb 26.3 pg (27.0-32.0); Mean Corpuscular Volume 84.9 fL (80-94); Mean Platelet Vol. 10.4 fl (6.2-12.0); Monocyte# 1.51 X10^3/uL; Monocyte% 11.6 % (0-10); NRBC Flagged by Analyzer 0 % (0-5); Neutrophil # 9.25 X10^3/uL (2.7-7.7); Neutrophil % 70.8 % (47-70); POSITIVE DIFFERENTIAL YES; Platelet Count 249 K/mm3 (150-450); RBC Distribution Width CV 14.8 % (11.6-14.6); RBC Distribution Width SD 46.1 fl (35.1-43.9); Red Blood Count 3.65 M/mm3 (4.6-6.2); White Blood Count 13.1 K/mm3 (4.4-11.0)
[2023-11-14 14:54] LABS: Differential Indicated SCAN CRITERIA MET
--- NOTE | 2023-11-14 15:03 | ED.VIS.LOWEX ---
HPI <SUJATHA Aguayo - Last Filed: 11/14/23 19:30> History of Present Illness Chief Complaint: Lower Extremity Injury Narrative Narrative: Patient presenting today due to complications from his left foot operation. He reports that he presented to the ED on 10/19/2023 and was diagnosed with osteomyelitis of the left heel. This was surgically operated on by Dr. Hess and a delta frame external fixator was placed. Last night, one of the screws seem to have come loose and patient has had bleeding from the area. He does take Plavix and aspirin. He denies any trauma to the area, fever, and chills. [facility] <SUJATHA Aguayo - Last Filed: 11/14/23 19:30> [facility] Medical History Acute osteomyelitis of left foot CELESTE (acute kidney injury) Ambulates with cane Amputation of one or more toes Anxiety and depression Arrhythmia Arthritis Aspiration pneumonia Atherosclerotic heart disease of [place] coronary artery without angina pectoris Back pain Back spasm Bilateral leg weakness Blind left eye Blister (nonthermal), left foot, initial encounter Bronchiectasis with (acute) exacerbation Cardiology follow-up encounter Chronic cough Chronic respiratory failure with hypoxia CKD (chronic kidney disease) COPD (chronic obstructive pulmonary disease) Coronary artery disease CPAP (continuous positive airway pressure) dependence Debility, unspecified Decubitus ulcer limited to breakdown of skin (stage 2) Depression Diabetes Diabetes mellitus Essential hypertension Gastric reflux GERD (gastroesophageal reflux disease) High cholesterol History of aspiration pneumonia History of coronary artery disease History of diabetes mellitus History of echocardiogram History of edema History of gout History of heart attack History of non-ST elevation myocardial infarction (NSTEMI) (08/2016) History of pain when walking History of steroid therapy Hx of type 2 diabetes mellitus Hyperglycemia due to type 2 diabetes mellitus Hypertension Insulin dependent diabetes mellitus Irregular heart beat Kidney stones Left ankle instability Leg pain, right Leukocytosis Low back pain Memory impairment Migraines Mood disorder Non healing left heel wound Non-pressure chronic ulcer of other part of left foot with necrosis of bone Non-smoker Noncompliance by declining intervention or support On home oxygen therapy Peripheral vascular disease, unspecified Peripheral vascular occlusive disease Pneumonia Prostate disease Pulmonary nodule, left Recurrent falls Respiratory failure with hypoxia Right ankle pain Right foot pain Shortness of breath on exertion Silent aspiration Sleep apnea Tremor Type 2 diabetes mellitus with diabetic polyneuropathy Type 2 diabetes mellitus with diabetic polyneuropathy Ulcer of left foot, limited to breakdown of skin Vision loss of left eye Wears glasses Wound of left lower extremity Home Medications gauze bandage 4 X 4 (Bordered Gauze) #14 ea 07/03/22 [Rx Last Taken Unknown] walker (Ultra-Light Rollator [facility] [place] #1 ea 07/21/22 [Rx Last Taken Unknown] pen needle, diabetic 33 gauge x 5/16 #200 ea 12/02/22 [Rx Last Taken Unknown] fluoxetine 20 mg capsule 20 mg PO DAILY ANXIETY 03/23/23 [History Last Taken 10/19/23] melatonin 3 mg tablet 3 mg PO QHS INSOMNIA 03/23/23 [History Last Taken 10/18/23] atorvastatin 80 mg tablet 80 mg PO QHS CHOLESTEROL 05/25/23 [History Last Taken 10/18/23] fluoxetine 40 mg capsule 40 mg PO DAILY ANXIETY 05/25/23 [History Last Taken 10/19/23] pantoprazole 40 mg tablet,delayed release 40 mg PO DAILY ACID REFLUX 05/25/23 [History Last Taken 10/19/23] trazodone 150 mg tablet 150 mg PO QHS INSOMNIA 05/25/23 [History Last Taken 10/18/23] Wheelchair #1 ea 07/23/23 [Rx Last Taken Unknown] Lift Chair #1 ea 08/06/23 [Rx Last Taken Unknown] bisacodyl 10 mg rectal suppository 10 mg MN DAILY PRN CONSTIPATION 08/28/23 [History Last Taken Unknown] amlodipine 10 mg tablet 10 mg PO BID BLOOD PRESSURE 10/19/23 [History Last Taken 10/19/23] ascorbic acid (vitamin C) 500 mg tablet 500 mg PO BID SUPPLEMENT 10/19/23 [History Last Taken 10/19/23] aspirin 81 mg tablet,delayed release (Ecotrin Low Strength) 81 mg PO DAILY HEART HEALTH 10/19/23 [History Last Taken 10/19/23] clopidogrel 75 mg tablet 75 mg PO QHS BLOOD THINNER 10/19/23 [History Last Taken 10/18/23] glimepiride 2 mg tablet 2 mg PO BID DIABETES 10/19/23 [History Last Taken 10/19/23] hydroxyzine HCl 25 mg tablet 50 mg PO QHS 10/19/23 [History Last Taken 10/18/23] hyoscyamine sulfate 0.125 mg tablet 0.125 mg PO Q4H PRN BLADDER 10/19/23 [History Last Taken Unknown] insulin detemir U-100 100 unit/mL (3 mL) subcutaneous pen (Levemir FlexPen) 25 unit subcut BID DIABETES 10/19/23 [History Last Taken 10/19/23] isosorbide mononitrate 30 mg tablet,extended release 24 hr 30 mg PO DAILY HEART 10/19/23 [History Last Taken 10/19/23] lorazepam 0.5 mg tablet 0.5 mg PO Q4H PRN ANXIETY/AGITATION 10/19/23 [History Last Taken Unknown] magnesium 250 mg tablet 250 mg PO DAILY SUPPLEMENT 10/19/23 [History Last Taken 10/19/23] metoclopramide HCl 5 mg tablet 5 mg PO TID INTESTINES 10/19/23 [History Last Taken 10/19/23] nitroglycerin 0.4 mg sublingual tablet 0.4 mg sublingual Q5M PRN CHEST PAIN 10/19/23 [History Last Taken Unknown] pregabalin 75 mg capsule 75 mg PO Q12H PRN PAIN 10/19/23 [History Last Taken Unknown] sennosides 8.6 mg-docusate sodium 50 mg tablet (Senna Plus) 1 tab-cap PO BID CONSTIPATION 10/19/23 [History Last Taken 10/19/23] tizanidine 2 mg tablet 2 mg PO Q8H PRN MUSCLE SPASMS 10/19/23 [History Last Taken Unknown] flash glucose sensor (FreeStyle Mago 14 Day Sensor kit) 10/20/23 [History Last Taken Unknown] ciprofloxacin HCl 500 mg tablet 500 mg PO BID 14 days #28 tabs 10/25/23 [Rx Last Taken Unknown] oxycodone 5 mg tablet 5 mg PO Q6H PRN pain 3 days #12 tabs 10/25/23 [Rx Last Taken Unknown] vancomycin 1 gram/200 mL in dextrose 5 % intravenous piggyback 1,000 mg IV Q24H 37 days #7,400 mL 10/25/23 [Rx Last Taken Unknown] dextrose 40 % oral gel (Gluco Burst) 15 g PO Q15M PRN hypoglycemia 11/12/23 [History Last Taken Unknown] glucagon HCl 1 mg solution for injection (Glucagon (HCl) Emergency Kit) 1 mg IM Q15M PRN hypoglycemia 11/12/23 [History Last Taken Unknown] Allergy/AdvReac Type Severity Reaction Status Date / Time allopurinol AdvReac Vomiting Verified 11/14/23 13:44 Influenza Virus Vaccines AdvReac Vomiting Verified 11/14/23 13:44 pneumococcal vaccine AdvReac Vomiting Verified 11/14/23 13:44 Family History Mother Diabetes Heart disease CHF Father Heart disease [place]/CAD Myocardial infarction Surgical History H/O lithotripsy History of angioplasty of peripheral vessel (2016) History of angioplasty of peripheral vessel History of ankle surgery History of cardiac catheterization History of coronary artery stent placement (08/2016) History of coronary artery stent placement History of esophagogastroduodenoscopy (EGD) History of left heart catheterization (11/15/17) History of thyroid surgery Hx of lithotripsy Hx of surgery to heart and great vessels, presenting hazards to health Hx of surgical procedure Hx of thyroidectomy Hx of toe surgery Hx of toe surgery PEG (percutaneous endoscopic gastrostomy) status Social History household members: spouse housing: senior care Smoking Status: Never smoker alcohol intake: never substance use type: does not use ROS <SUJATHA Aguayo - Last Filed: 11/14/23 19:30> ROS ED Constitutional Constitutional ED: Denies chills or fever(s) Cardiovascular Cardiovascular: Denies chest pain Respiratory/Chest Respiratory/Chest: Denies cough or dyspnea Gastrointestinal Gastrointestinal: Denies abdominal pain, nausea or vomiting Musculoskeletal Musculoskeletal: Reports arthralgias; Denies myalgias Integumentary Denies rash Neurologic Neurologic: Denies paresthesias or weakness EXAM <SUJATHA Aguayo - Last Filed: 11/14/23 19:30> Physical Exam Const Vital Signs: 11/14/23 13:40 11/14/23 13:46 11/14/23 15:40 Temperature 98.7 F Temperature Source Temporal Pulse Rate 82 96 81 Respiratory Rate 15 18 18 Blood Pressure 139/80 H 148/88 H 144/78 H Blood Pressure Mean 99 108 100 Pulse Ox 93 95 96 Oxygen Delivery Method Room Air Room Air Room Air 11/14/23 17:00 12 17:28 Temperature Temperature Source Pulse Rate 84 87 Respiratory Rate 19 H 15 Blood Pressure 159/77 H 159/77 H Blood Pressure Mean 104 104 Pulse Ox 97 97 Oxygen Delivery Method Room Air Positive well nourished, well developed and no apparent distress General Appearance ED: well developed HEENT Reports normocephalic and head/scalp atraumatic Mouth ED: Yes moist mucous membranes normal Eyes PERRL and EOMs intact bilaterally Neck full ROM and supple Chest Wall inspection of chest normal Resp normal respiratory effort and clear to auscultation bilaterally Cardio regular rate and regular rhythm GI soft to palpation, non-tender, non-distended and no masses Back/Spine normal ROM and normal to inspection Extremity Extremity Narrative: Bleeding to the dorsal aspect of the left foot where a screw is in place. Neuro oriented x3, CN's II-XII intact bilaterally, moves all extremities, no focal motor deficits and no sensory deficits noted Sensorium / Orientation: awake and alert Psych mental status grossly normal and thought process normal Skin no rashes or lesions noted and no wounds <Dr. Ck Villar DO - Last Filed: 11/15/23 00:07> Physical Exam Const Vital Signs: 11/14/23 13:40 11/14/23 13:46 11/14/23 15:40 Temperature 98.7 F Temperature Source Temporal Pulse Rate 82 96 81 Respiratory Rate 15 18 18 Blood Pressure 139/80 H 148/88 H 144/78 H Blood Pressure Mean 99 108 100 Pulse Ox 93 95 96 Oxygen Delivery Method Room Air Room Air Room Air 11/14/23 17:00 11/14/23 17:28 Temperature Temperature Source Pulse Rate 84 87 Respiratory Rate 19 H 15 Blood Pressure 159/77 H 159/77 H Blood Pressure Mean 104 104 Pulse Ox 97 97 Oxygen Delivery Method Room Air MDM <SUJATHA Aguayo - Last Filed: 11/14/23 19:30> [facility] Narrative Medical decision making narrative: Patient presenting due to a complication from his delta frame external fixator that is in place on his left foot due to history of osteomyelitis. This was placed by Dr. Hess. The screw on the dorsal aspect of the foot seems to be loose and there is a lot of bleeding to the area. X-ray will be obtained as well as labs. I did speak with Dr. Hess and he is going to come and evaluate the patient. He was able to remove this frame from patient's foot and bandaged the area. He has cleared patient to be discharged back to his facility and wants him to follow-up as an outpatient in the office. He is receiving vancomycin through his PICC line and is to continue this. He will be discharged home in stable condition and is comfortable with plan. Lab Data Attestation: I reviewed the patient's lab results. Lab results narrative: WBC 13.1, H&H 9.6 and 31.0, CRP 10.2 Labs: Laboratory Results - last 24 hr 11/14/23 14:45 WBC 13.1 H RBC 3.65 L Hgb 9.6 L Hct 31.0 L MCV 84.9 MCH 26.3 L MCHC 31.0 L RDW Std Deviation 46.1 H RDW Coeff of James 14.8 H Plt Count 249 MPV 10.4 Immature Gran % (Auto) 0.700 Neut % (Auto) 70.8 H Lymph % (Auto) 13.9 L [place] % (Auto) 11.6 H Eos % (Auto) 2.2 Baso % (Auto) 0.8 Absolute Neuts (auto) 9.3 H Absolute Lymphs (auto) 1.82 Nucleated RBC % 0 Differential Comment SCANNED Diff Path Review March foll ESR 17 PT 14.6 INR 1.1 Sodium 141 Potassium 3.7 Chloride 109 H Carbon Dioxide 31.0 Anion Gap 1 L BUN 9 Creatinine 1.29 Estim Creat Clear Calc 59.73 Est GFR (MDRD) Af Amer 72 Est GFR (MDRD) Non-Af 60 BUN/Creatinine Ratio 7.0 L Glucose 138 H Calcium 8.9 C-React Prot Ext Range 10.20 H Radiography X-Ray: Read by ED Physician and Read by Radiologist Diagnostic Testing: Clinical Impression(s) from Imaging Studies Foot X-Ray 11/14/23 14:22 IMPRESSION: No acute findings in the left foot. Electronically Signed: German Lee MD at 14:51 EST , <Dr. Ck Villar, DO - Last Filed: 11/15/23 00:07> MDM MDM Narrative Medical decision making narrative: Patient presenting due to a complication from his delta frame external fixator that is in place on his left foot due to history of osteomyelitis. This was placed by Dr. Hess. The screw on the dorsal aspect of the foot seems to be loose and there is a lot of bleeding to the area. X-ray will be obtained as well as labs. I did speak with Dr. Hess and he is going to come and evaluate the patient. He was able to remove this frame from patient's foot and bandaged the area. He has cleared patient to be discharged back to his facility and wants him to follow-up as an outpatient in the office. He is receiving vancomycin through his PICC line and is to continue this. He will be discharged home in stable condition and is comfortable with plan. This patient was seen with a PA/SURVEY PROJECT MANAGER Individually assessed they patient including history and physical. I have reviewed everything on the chart that is available and agree with the documentation provided by the PA/SURVEY PROJECT MANAGER including discussion about the assessment, treatment plan, discussion, and return precautions. Patient with continued problems with left foot. X-rays were obtained which show no acute findings. Patient is on IV Vanco currently for osteomyelitis. CBC shows leukocytosis of 13.1. Hemoglobin hematocrit are stable. Renal function electrolytes at baseline. ESR 17, CRP 10.2. Discussed with Dr. Dey who came to the ER and removed the patient's hardware. He did a dressing for the patient and will follow-up as an outpatient. Lab Data Labs: Laboratory Results - last 24 hr 11/14/23 14:45 WBC 13.1 H RBC 3.65 L Hgb 9.6 L Hct 31.0 L MCV 84.9 MCH 26.3 L MCHC 31.0 L RDW Std Deviation 46.1 H RDW Coeff of James 14.8 H Plt Count 249 MPV 10.4 Immature Gran % (Auto) 0.700 Neut % (Auto) 70.8 H Lymph % (Auto) 13.9 L [place] % (Auto) 11.6 H Eos % (Auto) 2.2 Baso % (Auto) 0.8 Absolute Neuts (auto) 9.3 H Absolute Lymphs (auto) 1.82 Nucleated RBC % 0 Differential Comment SCANNED Diff Path Review May foll ESR 17 PT 14.6 INR 1.1 Sodium 141 Potassium 3.7 Chloride 109 H Carbon Dioxide 31.0 Anion Gap 1 L BUN 9 Creatinine 1.29 Estim Creat Clear Calc 59.73 Est GFR (MDRD) Af Amer 72 Est GFR (MDRD) Non-Af 60 BUN/Creatinine Ratio 7.0 L Glucose 138 H Calcium 8.9 C-React Prot Ext Range 10.20 H Radiography Diagnostic Testing: Clinical Impression(s) from Imaging Studies Foot X-Ray 11/14/23 14:22 IMPRESSION: No acute findings in the left foot. Electronically Signed: German Lee MD at 14:51 EST Reading Location ID and State: [facility] / [place] , Service support , Discharge Plan Triage Chief Complaint: Lower Extremity Injury ED Midlevel Provider: Radha Moreno ED Provider: Ck Villar Dx/Rx/DC Orders Clinical Impression: Post-operative complication, Osteomyelitis Instructions: Osteomyelitis Dc Prescriptions: No Action (DME) Ultra-Light Rollator Misc See Rx Instructions .Route Qty: 1 2RF Rx Instructions: As directed (DME) pen needle, diabetic 33 gauge x 5/16 needle See Rx Instructions .Route Qty: 200 3RF Rx Instructions: As directed melatonin 3 mg tablet 3 mg PO QHS fluoxetine 20 mg capsule 20 mg PO DAILY Patient Comments: TAKE ONE 20MG AND ONE 40MG CAPSULE BY MOUTH ONCE DAILY FOR A TOTAL DOSE OF 60MG (DME) Lift Chair See Rx Instructions .Route .MEDSUPPLY Qty: 1 0RF Rx Instructions: As directed (DME) gauze bandage [Bordered Gauze] 4 X 4 bandage See Rx Instructions .ROUTE .MEDSUPPLY Qty: 14 2RF Rx Instructions: Daily cleanse left foot wound with soap and water, dry and apply Betadine solution and apply clean dressing fluoxetine 40 mg capsule 40 mg PO DAILY Patient Comments: TAKE ONE 20MG AND ONE 40MG CAPSULE BY MOUTH ONCE DAILY FOR A TOTAL DOSE OF 60MG trazodone 150 mg tablet 150 mg PO QHS pantoprazole 40 mg tablet,delayed release (DR/EC) 40 mg PO DAILY atorvastatin 80 mg tablet 80 mg PO QHS bisacodyl 10 mg suppository 10 mg [place] DAILY PRN (Reason: CONSTIPATION ) amlodipine 10 mg tablet 10 mg PO BID aspirin [Ecotrin Low Strength] 81 mg tablet,delayed release (DR/EC) 81 mg PO DAILY lorazepam 0.5 mg tablet 0.5 mg PO Q4H PRN (Reason: ANXIETY/AGITATION ) glimepiride 2 mg tablet 2 mg PO BID hydroxyzine HCl 25 mg tablet 50 mg PO QHS Levemir FlexPen 100 unit/mL (3 mL) insulin pen 25 unit SUBCUT BID magnesium 250 mg tablet 250 mg PO DAILY hyoscyamine sulfate 0.125 mg tablet 0.125 mg PO Q4H PRN (Reason: BLADDER) isosorbide mononitrate 30 mg tablet extended release 24 hr 30 mg PO DAILY metoclopramide HCl 5 mg tablet 5 mg PO TID nitroglycerin 0.4 mg tablet, sublingual 0.4 mg sublingual Q5M PRN (Reason: CHEST PAIN ) sennosides-docusate sodium [Senna Plus] 8.6-50 mg tablet 1 tab-cap PO BID tizanidine 2 mg tablet 2 mg PO Q8H PRN (Reason: MUSCLE SPASMS ) ascorbic acid (vitamin C) 500 mg tablet 500 mg PO BID clopidogrel 75 mg tablet 75 mg PO QHS pregabalin 75 mg Capsule 75 mg PO Q12H PRN (Reason: PAIN ) (DME) FreeStyle Mago 14 Day Sensor Kit See Rx Instructions .Route Rx Instructions: As directed; check BS 3x daily for DMII vancomycin in dextrose 5 % 1 gram/200 mL Piggyback 1,000 mg IV Q24H 37 Days Qty: 7400 0RF Rx Instructions: stop date 12/01/23. dx: foot osteo weekly bmp, cbc, vanc trough, and ESR. Fax to [phone] ciprofloxacin HCl 500 mg Tablet 500 mg PO BID 14 Days Qty: 28 0RF Patient Comments: end date 11/09/23 oxycodone 5 mg tablet 5 mg PO Q6H PRN (Reason: pain) 3 Days Qty: 12 0RF glucagon HCl [Glucagon (HCl) Emergency Kit] 1 mg recon soln 1 mg IM Q15M PRN (Reason: hypoglycemia) Rx Instructions: until target blood sugar attained dextrose [Gluco Burst] 40 % gel 15 g PO Q15M PRN (Reason: hypoglycemia) Rx Instructions: until symptoms of low blood sugar are controlled (DME) Wheelchair See Rx Instructions .Route .MEDSUPPLY Qty: 1 0RF Rx Instructions: As directed Primary Care Provider: Doretha Brown Referrals: Jason Hess DPM [Med Staff - Active Staff] - As Needed Doretha Brown MD [Primary Care Provider] - Activity Restrictions/Additional Instructions: Follow-up with Dr. Hess. Return for any worsening of your symptoms. Disposition Disposition: Home, Self Care Discharge Date/Time: 11/14/23 18:04
[2023-11-14 15:06] LABS: International Normalized Ratio 1.1; Prothrombin Time (Protime)PT. 14.6 SECONDS (11.7-14.9)
[2023-11-14 15:07] LABS: Anion Gap 1 (5-15); BUN 9 mg/dL (7-18); Calcium,Total 8.9 mg/dL (8.5-10.1); Chloride 109 mmol/L (98-107); Creatinine, Serum 1.29 mg/dL (0.70-1.30); EST Glomerular Filtration Rate 60 mL/min (>60); Est Glom Filt Rate - Afr Amer 72 mL/min (>60); Estimated Creatinine Clearance 59.73 ml/min; Glucose 138 mg/dL (74-106); Potassium 3.7 mmol/L (3.5-5.1); Sodium Level 141 mmol/L (136-145)
[2023-11-14 15:22] LABS: Differential Comment SCANNED
[2023-11-14 15:40] VITALS: BP 144/78; PULSE 81; RESP 18; O2SAT 96
[2023-11-14 15:56] LABS: Erythrocyte Sedimentation Rate 17 mm/hr (0-20)
--- NOTE | 2023-11-14 16:54 | CON.PCM_ITS ---
Assessment & Plan Assessment/Plan (1) Foot osteomyelitis, left: QUALIFIERS: Osteomyelitis type: other acute Qualified Code(s): M86.172 - Other acute osteomyelitis, left ankle and foot PLAN: Exam performed. Radiographs reviewed dorsal first ray pin loosened and no longer in the first metatarsal. Vital signs stable. Mild leukocytosis at 13. Patient on IV vancomycin for MRSA calcaneal osteomyelitis left heel. Still following with infectious disease. Left external fixation device removed in the emergency department today. Patient was orally consented. Pin sites were prepped with Betadine paint. Using sterile T handle do pin to bar construct was loosened and removed atraumatically. Hemostasis obtained with compression. No anesthesia used due to neuropathy status. Patient tolerated procedure well. Left heel wound examined demonstrate fibrogranular base. Patient has follow-up appointment on Wednesday we will plan for debridement at that time. Redress left lower extremity with Betadine paint 4 x 4's Kerlix and a well- padded Martin compression dressing to left lower extremity. Patient will continue nonweightbearing to the left lower extremity Patient can keep dressing clean dry and intact until follow-up on Wednesday to allow for adequate hemostasis. (2) Visit for wound check: (3) Infection of wound due to methicillin resistant Staphylococcus aureus (MRSA): (4) Loosening of external fixator pin: HPI Consult Data Date of Consult: 11/14/23 HPI Narrative HPI Narrative: REA HANNA, is a 63 M who presents With left heel ulceration in setting of chronic osteomyelitis left calcaneus status post partial calcanectomy and application of external fixation device. Patient presents today as the pin to the dorsal foot became loosened after he bumped it and had some bleeding through his dressing. Patient is on Plavix. Patient denies constitutional symptoms at current. Patient denies pain as he is diabetic with neuropathy. Patient has history of peripheral arterial disease. No other complaints at current. [facility] Medical History Acute osteomyelitis of left foot CELESTE (acute kidney injury) Ambulates with cane Amputation of one or more toes Anxiety and depression Arrhythmia Arthritis Aspiration pneumonia Atherosclerotic heart disease of [place] coronary artery without angina pectoris Back pain Back spasm Bilateral leg weakness Blind left eye Blister (nonthermal), left foot, initial encounter Bronchiectasis with (acute) exacerbation Cardiology follow-up encounter Chronic cough Chronic respiratory failure with hypoxia CKD (chronic kidney disease) COPD (chronic obstructive pulmonary disease) Coronary artery disease CPAP (continuous positive airway pressure) dependence Debility, unspecified Decubitus ulcer limited to breakdown of skin (stage 2) Depression Diabetes Diabetes mellitus Essential hypertension Gastric reflux GERD (gastroesophageal reflux disease) High cholesterol History of aspiration pneumonia History of coronary artery disease History of diabetes mellitus History of echocardiogram History of edema History of gout History of heart attack History of non-ST elevation myocardial infarction (NSTEMI) (08/2016) History of pain when walking History of steroid therapy Hx of type 2 diabetes mellitus Hyperglycemia due to type 2 diabetes mellitus Hypertension Insulin dependent diabetes mellitus Irregular heart beat Kidney stones Left ankle instability Leg pain, right Leukocytosis Low back pain Memory impairment Migraines Mood disorder Non healing left heel wound Non-pressure chronic ulcer of other part of left foot with necrosis of bone Non-smoker Noncompliance by declining intervention or support On home oxygen therapy Peripheral vascular disease, unspecified Peripheral vascular occlusive disease Pneumonia Prostate disease Pulmonary nodule, left Recurrent falls Respiratory failure with hypoxia Right ankle pain Right foot pain Shortness of breath on exertion Silent aspiration Sleep apnea Tremor Type 2 diabetes mellitus with diabetic polyneuropathy Type 2 diabetes mellitus with diabetic polyneuropathy Ulcer of left foot, limited to breakdown of skin Vision loss of left eye Wears glasses Wound of left lower extremity Home Medications gauze bandage 4 X 4 (Bordered Gauze) #14 ea 07/03/22 [Rx Last Taken Unknown] [place] [facility] [place] 07/21/22 [Rx Last Taken Unknown] pen needle, diabetic 33 gauge x 5/16 #200 ea 12/02/22 [Rx Last Taken Unknown] fluoxetine 20 mg capsule 20 mg PO DAILY ANXIETY 03/23/23 [History Last Taken 10/19/23] melatonin 3 mg tablet 3 mg PO QHS INSOMNIA 03/23/23 [History Last Taken 10/18/23] atorvastatin 80 mg tablet 80 mg PO QHS CHOLESTEROL 05/25/23 [History Last Taken 10/18/23] fluoxetine 40 mg capsule 40 mg PO DAILY ANXIETY 05/25/23 [History Last Taken 10/19/23] pantoprazole 40 mg tablet,delayed release 40 mg PO DAILY ACID REFLUX 05/25/23 [History Last Taken 10/19/23] trazodone 150 mg tablet 150 mg PO QHS INSOMNIA 05/25/23 [History Last Taken 10/18/23] Wheelchair #1 ea 07/23/23 [Rx Last Taken Unknown] Lift Chair #1 ea 08/06/23 [Rx Last Taken Unknown] bisacodyl 10 mg rectal suppository 10 mg UT DAILY PRN CONSTIPATION 08/28/23 [History Last Taken Unknown] amlodipine 10 mg tablet 10 mg PO BID BLOOD PRESSURE 10/19/23 [History Last Taken 10/19/23] ascorbic acid (vitamin C) 500 mg tablet 500 mg PO BID SUPPLEMENT 10/19/23 [Hi story Last Taken 10/19/23] aspirin 81 mg tablet,delayed release (Ecotrin Low Strength) 81 mg PO DAILY HEART HEALTH 10/19/23 [History Last Taken 10/19/23] clopidogrel 75 mg tablet 75 mg PO QHS BLOOD THINNER 10/19/23 [History Last Taken 10/18/23] glimepiride 2 mg tablet 2 mg PO BID DIABETES 10/19/23 [History Last Taken 10/19/23] hydroxyzine HCl 25 mg tablet 50 mg PO QHS 10/19/23 [History Last Taken 10/18/23] hyoscyamine sulfate 0.125 mg tablet 0.125 mg PO Q4H PRN BLADDER 10/19/23 [History Last Taken Unknown] insulin detemir U-100 100 unit/mL (3 mL) subcutaneous pen (Levemir FlexPen) 25 unit subcut BID DIABETES 10/19/23 [History Last Taken 10/19/23] isosorbide mononitrate 30 mg tablet,extended release 24 hr 30 mg PO DAILY HEART 10/19/23 [History Last Taken 10/19/23] lorazepam 0.5 mg tablet 0.5 mg PO Q4H PRN ANXIETY/AGITATION 10/19/23 [History Last Taken Unknown] magnesium 250 mg tablet 250 mg PO DAILY SUPPLEMENT 10/19/23 [History Last Taken 10/19/23] metoclopramide HCl 5 mg tablet 5 mg PO TID INTESTINES 10/19/23 [History Last Taken 10/19/23] nitroglycerin 0.4 mg sublingual tablet 0.4 mg sublingual Q5M PRN CHEST PAIN 10/19/23 [History Last Taken Unknown] pregabalin 75 mg capsule 75 mg PO Q12H PRN PAIN 10/19/23 [History Last Taken Unknown] sennosides 8.6 mg-docusate sodium 50 mg tablet (Senna Plus) 1 tab-cap PO BID CONSTIPATION 10/19/23 [History Last Taken 10/19/23] tizanidine 2 mg tablet 2 mg PO Q8H PRN MUSCLE SPASMS 10/19/23 [History Last Taken Unknown] flash glucose sensor (FreeStyle Mago 14 Day Sensor kit) 10/20/23 [History Last Taken Unknown] ciprofloxacin HCl 500 mg tablet 500 mg PO BID 14 days #28 tabs 10/25/23 [Rx Last Taken Unknown] oxycodone 5 mg tablet 5 mg PO Q6H PRN pain 3 days #12 tabs 10/25/23 [Rx Last Taken Unknown] vancomycin 1 gram/200 mL in dextrose 5 % intravenous piggyback 1,000 mg IV Q24H 37 days #7,400 mL 10/25/23 [Rx Last Taken Unknown] dextrose 40 % oral gel (Gluco Burst) 15 g PO Q15M PRN hypoglycemia 11/12/23 [History Last Taken Unknown] glucagon HCl 1 mg solution for injection (Glucagon (HCl) Emergency Kit) 1 mg IM Q15M PRN hypoglycemia 11/12/23 [History Last Taken Unknown] Allergy/AdvReac Type Severity Reaction Status Date / Time allopurinol AdvReac Vomiting Verified 11/14/23 13:44 Influenza Virus Vaccines AdvReac Vomiting Verified 11/14/23 13:44 pneumococcal vaccine AdvReac Vomiting Verified 11/14/23 13:44 Family History Mother Diabetes Heart disease CHF Father Heart disease [place]/CAD Myocardial infarction Surgical History H/O lithotripsy History of angioplasty of peripheral vessel (2016) History of angioplasty of peripheral vessel History of ankle surgery History of cardiac catheterization History of coronary artery stent placement (08/2016) History of coronary artery stent placement History of esophagogastroduodenoscopy (EGD) History of left heart catheterization (11/15/17) History of thyroid surgery Hx of lithotripsy Hx of surgery to heart and great vessels, presenting hazards to health Hx of surgical procedure Hx of thyroidectomy Hx of toe surgery Hx of toe surgery PEG (percutaneous endoscopic gastrostomy) status Social History household members: spouse housing: [facility] Smoking Status: Never smoker alcohol intake: never substance use type: does not use Physical Exam Narrative Vascular: Dorsalis pedis posterior tibial pulses palpable bilaterally. Atrophic skin changes noted. Neurologic: Light touch protective sensation absent to bilateral feet. Dermatologic: Due to loosening and failure of external fixation device this was removed. Pin sites to proximal tibia and calcaneus as well as dorsal first ray appear intact. Bleeding resolved upon removal of device and application of compression dressing. Wound to left heel demonstrates fibro granular base. No other acute signs of infection. Musculoskeletal: No sign DVT bilaterally. Muscular strength diminished bilate rally. Const alert and oriented x3 Lab / Micro Data 11/14/23 14:45 11/14/23 14:45 Labs: Laboratory Results - last 24 hr 11/14/23 14:45: WBC 13.1 H, RBC 3.65 L, Hgb 9.6 L, Hct 31.0 L, MCV 84.9, MCH 26.3 L, MCHC 31.0 L, RDW Std Deviation 46.1 H, RDW Coeff of James 14.8 H, Plt Count 249, MPV 10.4, Immature Gran % (Auto) 0.700, Neut % (Auto) 70.8 H, Lymph % (Auto) 13.9 L, [place] % (Auto) 11.6 H, Eos % (Auto) 2.2, Baso % (Auto) 0.8, Absolute Neuts (auto) 9.3 H, Absolute Lymphs (auto) 1.82, Nucleated RBC % 0, Differential Comment SCANNED, Diff Path Review March, ESR 17, PT 14.6, INR 1.1, Sodium 141, Potassium 3.7, Chloride 109 H, Carbon Dioxide 31.0, Anion Gap 1 L, BUN 9, Creatinine 1.29, Estim Creat Clear Calc 59.73, Est GFR (MDRD) Af Amer 72, Est GFR (MDRD) Non-Af 60, BUN/Creatinine Ratio 7.0 L, Glucose 138 H, Calcium 8.9, C-React Prot Ext Range 10.20 H Imagaing Radiology Impression Foot X-Ray 11/14/23 14:22 IMPRESSION: No acute findings in the left foot. Electronically Signed: German Lee MD at 14:51 EST ,
[2023-11-14 17:00] VITALS: BP 159/77; PULSE 84; RESP 19; O2SAT 97
[2023-11-14 17:28] VITALS: BP 159/77; PULSE 87; RESP 15; O2SAT 97
--- NOTE | 2023-11-14 17:29 | NURSING ---
CALLED [facility], ETA IS 20 MIN
--- NOTE | 2023-11-14 17:36 | ED.RN ---
Report called to ALICE Bridges at [facility].
[2023-11-15 13:30] LABS: Pathologist Review Reviewed
== END 2023-11-14 18:04 | disposition home or self-care (01) ==
PROVIDERS: Physician Assistant; Emergency Provider Student in an Organized Health Care Education/Training Program; PCP Internal Medicine; Visit Provider Student in an Organized Health Care Education/Training Program
DX: M86.172 Other acute osteomyelitis, left ankle and foot (principal); E11.51 Type 2 diabetes mellitus with diabetic peripheral angiopathy without gangrene; J44.9 Chronic obstructive pulmonary disease, unspecified; E11.42 Type 2 diabetes mellitus with diabetic polyneuropathy; E11.22 Type 2 diabetes mellitus with diabetic chronic kidney disease; E11.69 Type 2 diabetes mellitus with other specified complication; Z79.4 Long term (current) use of insulin; Z79.82 Long term (current) use of aspirin; I12.9 Hypertensive chronic kidney disease with stage 1 through stage 4 chronic kidney disease, or unspecified chronic kidney disease; N18.9 Chronic kidney disease, unspecified; E78.00 Pure hypercholesterolemia, unspecified; Z79.02 Long term (current) use of antithrombotics/antiplatelets; I25.10 Atherosclerotic heart disease of native coronary artery without angina pectoris; Z79.84 Long term (current) use of oral hypoglycemic drugs; T88.9XXA Complication of surgical and medical care, unspecified, initial encounter; I25.2 Old myocardial infarction; I5A Non-ischemic myocardial injury (non-traumatic); Z99.81 Dependence on supplemental oxygen; F41.8 Other specified anxiety disorders; Z79.899 Other long term (current) drug therapy; K21.9 Gastro-esophageal reflux disease without esophagitis; Z95.5 Presence of coronary angioplasty implant and graft
CPT/HCPCS: 73630; 80048; 85025; 85610; 85652; 86140; 99282; A4216

== ENCOUNTER 2023-11-17 19:09 | Emergency (ER) | payer MEDICARE, MEDICAID, SELFPAY ==
[2023-11-17 19:10] VITALS: BP 168/90; PULSE 95; RESP 20; TEMP 37.1; O2SAT 95; BMI 35.7
--- NOTE | 2023-11-17 19:29 | RAD_ITS ---
STUDY: X-RAY CHEST REASON FOR EXAM: Male, 63 years old. Shortness of breath, fever TECHNIQUE: Single AP portable view of the chest. COMPARISON: 11/11/2023. FINDINGS: There is elevation of the right hemidiaphragm with right basilar atelectasis, stable. Remainder of the lung [place] are clear. There is no demonstrated pleural abnormality. Normal size heart. Normal mediastinum and pat. Normal visualized pulmonary arteries. Normal visualized aortic arch and descending thoracic aorta. There are diffuse degenerative changes of the visualized thoracic spine. Normal visualized ribs, clavicles, and shoulders. There is no demonstrated abnormality of the visualized soft tissue structures of the upper abdomen. RAD/Chest 1 View (Portable) IMPRESSION: Right basilar atelectasis, otherwise no acute cardiopulmonary disease. Electronically Signed: Gabi Calderon MD at 20:58 EST ,
--- NOTE | 2023-11-17 19:31 | EDS_ITS ---
HPI History of Present Illness Chief Complaint: Fever Narrative Narrative: 63-year-old male past medical history of osteomyelitis of the left foot, diabetes, presents from [facility] via EMS, with a reported fever. He states that he became sick around 4 PM this evening, just a few hours ago. He states that he may have been coughing/choking. Of note, he has been at the nursing home facility for the last 2 months. Has had history of osteomyelitis of his left foot which is Wrapped with the padding on his heel. He denies any dysuria or hematuria, no other symptoms. EMS states that his fever was as high as 102 ?F. 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 Back pain Back spasm Bilateral leg weakness Blind left eye Blister (nonthermal), left foot, initial encounter Bronchiectasis with (acute) exacerbation Cardiology follow-up encounter Chronic cough Chronic respiratory failure with hypoxia CKD (chronic kidney disease) COPD (chronic obstructive pulmonary disease) Coronary artery disease CPAP (continuous positive airway pressure) dependence Debility, unspecified Decubitus ulcer limited to breakdown of skin (stage 2) Depression Diabetes Diabetes mellitus Essential hypertension Gastric reflux GERD (gastroesophageal reflux disease) High cholesterol History of aspiration pneumonia History of coronary artery disease History of diabetes mellitus History of echocardiogram History of edema History of gout History of heart attack History of non-ST elevation myocardial infarction (NSTEMI) (08/2016) History of pain when walking History of steroid therapy Hx of type 2 diabetes mellitus Hyperglycemia due to type 2 diabetes mellitus Hypertension Insulin dependent diabetes mellitus Irregular heart beat Kidney stones Left ankle instability Leg pain, right Leukocytosis Low back pain Memory impairment Migraines Mood disorder Non healing left heel wound Non-pressure chronic ulcer of other part of left foot with necrosis of bone Non-smoker Noncompliance by declining intervention or support On home oxygen therapy Peripheral vascular disease, unspecified Peripheral vascular occlusive disease Pneumonia Prostate disease Pulmonary nodule, left Recurrent falls Respiratory failure with hypoxia Right ankle pain Right foot pain Shortness of breath on exertion Silent aspiration Sleep apnea Tremor Type 2 diabetes mellitus with diabetic polyneuropathy Type 2 diabetes mellitus with diabetic polyneuropathy Ulcer of left foot, limited to breakdown of skin Vision loss of left eye Wears glasses Wound of left lower extremity Home Medications gauze bandage 4 X 4 (Bordered Gauze) #14 ea 07/03/22 [Rx Last Taken Unknown] walker (Ultra-Light Rollator [facility]) #1 ea 07/21/22 [Rx Last Taken Unknown] pen needle, diabetic 33 gauge x 5/16 #200 ea 12/02/22 [Rx Last Taken Unknown] fluoxetine 20 mg capsule 20 mg PO DAILY ANXIETY 03/23/23 [History Last Taken 10/19/23] melatonin 3 mg tablet 3 mg PO QHS INSOMNIA 03/23/23 [History Last Taken 10/18/23] atorvastatin 80 mg tablet 80 mg PO QHS CHOLESTEROL 05/25/23 [History Last Taken 10/18/23] fluoxetine 40 mg capsule 40 mg PO DAILY ANXIETY 05/25/23 [History Last Taken 10/19/23] pantoprazole 40 mg tablet,delayed release 40 mg PO DAILY ACID REFLUX 05/25/23 [History Last Taken 10/19/23] trazodone 150 mg tablet 150 mg PO QHS INSOMNIA 05/25/23 [History Last Taken 10/18/23] Wheelchair #1 ea 07/23/23 [Rx Last Taken Unknown] Lift Chair #1 ea 08/06/23 [Rx Last Taken Unknown] bisacodyl 10 mg rectal suppository 10 mg HI DAILY PRN CONSTIPATION 08/28/23 [History Last Taken Unknown] amlodipine 10 mg tablet 10 mg PO BID BLOOD PRESSURE 10/19/23 [History Last Taken 10/19/23] ascorbic acid (vitamin C) 500 mg tablet 500 mg PO BID SUPPLEMENT 10/19/23 [History Last Taken 10/19/23] aspirin 81 mg tablet,delayed release (Ecotrin Low Strength) 81 mg PO DAILY HEART HEALTH 10/19/23 [History Last Taken 10/19/23] clopidogrel 75 mg tablet 75 mg PO QHS BLOOD THINNER 10/19/23 [History Last Taken 10/18/23] glimepiride 2 mg tablet 2 mg PO BID DIABETES 10/19/23 [History Last Taken 10/19/23] hydroxyzine HCl 25 mg tablet 50 mg PO QHS 10/19/23 [History Last Taken 10/18/23] hyoscyamine sulfate 0.125 mg tablet 0.125 mg PO Q4H PRN BLADDER 10/19/23 [History Last Taken Unknown] insulin detemir U-100 100 unit/mL (3 mL) subcutaneous pen (Levemir FlexPen) 20 unit subcut BID DIABETES 10/19/23 [History Last Taken 10/19/23] isosorbide mononitrate 30 mg tablet,extended release 24 hr 30 mg PO DAILY HEART 10/19/23 [History Last Taken 10/19/23] lorazepam 0.5 mg tablet 0.5 mg PO Q4H PRN ANXIETY/AGITATION 10/19/23 [History Last Taken Unknown] magnesium 250 mg tablet 250 mg PO DAILY SUPPLEMENT 10/19/23 [History Last Taken 10/19/23] metoclopramide HCl 5 mg tablet 5 mg PO TID INTESTINES 10/19/23 [History Last Taken 10/19/23] nitroglycerin 0.4 mg sublingual tablet 0.4 mg sublingual Q5M PRN CHEST PAIN 10/19/23 [History Last Taken Unknown] pregabalin 75 mg capsule 75 mg PO Q12H PRN PAIN 10/19/23 [History Last Taken Unknown] sennosides 8.6 mg-docusate sodium 50 mg tablet (Senna Plus) 1 tab-cap PO BID CONSTIPATION 10/19/23 [History Last Taken 10/19/23] tizanidine 2 mg tablet 2 mg PO Q8H PRN MUSCLE SPASMS 10/19/23 [History Last Taken Unknown] flash glucose sensor (FreeStyle Mago 14 Day Sensor kit) 10/20/23 [History Last Taken Unknown] oxycodone 5 mg tablet 5 mg PO Q6H PRN pain 3 days #12 tabs 10/25/23 [Rx Last Taken Unknown] vancomycin 1 gram/200 mL in dextrose 5 % intravenous piggyback 1,000 mg IV Q24H 37 days #7,400 mL 10/25/23 [Rx Last Taken Unknown] dextrose 40 % oral gel (Gluco Burst) 15 g PO Q15M PRN hypoglycemia 11/12/23 [History Last Taken Unknown] glucagon HCl 1 mg solution for injection (Glucagon (HCl) Emergency Kit) 1 mg IM Q15M PRN hypoglycemia 11/12/23 [History Last Taken Unknown] Allergy/AdvReac Type Severity Reaction Status Date / Time allopurinol AdvReac Vomiting Verified 11/14/23 13:44 Influenza Virus Vaccines AdvReac Vomiting Verified 11/14/23 13:44 pneumococcal vaccine AdvReac Vomiting Verified 11/14/23 13:44 Family History Mother Diabetes Heart disease CHF Father Heart disease MA/CAD Myocardial infarction Surgical History H/O lithotripsy History of angioplasty of peripheral vessel (2016) History of angioplasty of peripheral vessel History of ankle surgery History of cardiac catheterization History of coronary artery stent placement (08/2016) History of coronary artery stent placement History of esophagogastroduodenoscopy (EGD) History of left heart catheterization (11/15/17) History of thyroid surgery Hx of lithotripsy Hx of surgery to heart and great vessels, presenting hazards to health Hx of surgical procedure Hx of thyroidectomy Hx of toe surgery Hx of toe surgery PEG (percutaneous endoscopic gastrostomy) status Social History household members: spouse housing: half-way Smoking Status: Never smoker alcohol intake: never substance use type: does not use ROS ROS ED ROS Narrative Constitutional: Reported fever, no chills. HEENT: No sore throat. No neck pain. No loss of vision. No rhinorrhea. Cardiovascular: No chest pain. No palpitations. No pedal edema. Respiratory: Positive cough,/choking. No shortness of breath. Abdominal: No abdominal pain. No nausea. No vomiting. Genitourinary: No dysuria. No hematuria. Musculoskeletal: No myalgias. No arthralgias. Neurologic: No headaches. No dizziness. No lightheadedness. Skin: No rash. No change in color. Chronic left foot wound/osteomyelitis. Psychiatric: No depression. No anxiety. EXAM Physical Exam Narrative Exam Narrative: Afebrile. Vital signs noted. Nontoxic-appearing. HEENT: Normocephalic. Atraumatic. PERRL, EOMI. Neck soft and supple. No point tenderness or step off. Cardiovascular: Regular rate and rhythm. No murmurs, rubs, or gallops appreciated. Respiratory: No tachypnea. Lungs clear to auscultation bilaterally. Gastrointestinal: Abdomen soft, nontender, with normoactive bowel sounds. No rebound or guarding. Neurological: Awake. Alert. Nonfocal, nonlateralizing. Skin: No rash. Normal color. No pallor. Musculoskeletal: No pedal edema. Full range of motion extremities. Const Vital Signs: 11/17/23 19:10 11/17/23 19:14 11/17/23 20:45 Temperature 98.8 F 98.1 F Temperature Source Oral Oral Pulse Rate 95 87 Respiratory Rate 20 H 15 Respiratory Effort Normal Non-Labored Blood Pressure 168/90 H 167/89 H Blood Pressure Mean 116 115 Pulse Ox 95 93 Oxygen Delivery Method Room Air Room Air MDM MDM MDM Narrative Medical decision making narrative: Patient is afebrile here. Will look for source of fever such as UTI or pneumonia and he will be swabbed for COVID as well. He has normal white count of 11.1, only slightly elevated, hemoglobin stable at 9.8 with platelet count normal at 257. There is no evidence of dehydration, creatinine slightly elevated at 1.54, glucose elevated at 181 but anion gap low at 4. I have low suspicion for diabetic ketoacidosis. Lactic acid normal at 1.6. He is not hypotensive. I do not see his foot as a source of infection. X-rays were obtained of the chest and of the left foot. They were interpreted by myself independently. I see no evidence of bony destruction on his left foot x-ray, no acute fracture. Chest x-ray interpreted by myself and 1 view shows no evidence of acute pneumonia. His temperature was rechecked and he is not febrile, it is 98.1. He was not febrile when he arrived either and states he did not receive any antipyretics. At this point in time, I do feel that he can be discharged back to [facility], the nursing home [facility]. I reviewed his prior records and this is his fifth visit this month. He was seen 3 days ago. I will discuss patient with the on-call physician for Dr. Clancy. I discussed the patient with Dr. Upton, who agrees with discharge. Disposition is discharged in stable condition. History & Record Review Discussion w/independent historian: EMS personnel and Patient Additional record(s) reviewed:: Prior ED visit and Prior labs Lab Data Attestation: I reviewed the patient's lab results. Labs: Laboratory Results - last 24 hr 11/17/23 19:40 WBC 11.1 H RBC 3.68 L Hgb 9.8 L Hct 31.3 L MCV 85.1 MCH 26.6 L MCHC 31.3 L RDW Std Deviation 45.9 H RDW Coeff of James 14.7 H Plt Count 257 MPV 10.5 Immature Gran % (Auto) 0.400 Neut % (Auto) 67.7 Lymph % (Auto) 14.3 L [place] % (Auto) 13.9 H Eos % (Auto) 3.0 Baso % (Auto) 0.7 Absolute Neuts (auto) 7.5 Absolute Lymphs (auto) 1.58 Nucleated RBC % 0 Differential Comment Diff Path Review May foll Sodium 140 Potassium 4.0 Chloride 107 Carbon Dioxide 29.0 Anion Gap 4 L BUN 14 Creatinine 1.54 H Estim Creat Clear Calc 50.04 Est GFR (MDRD) Af Amer 59 L Est GFR (MDRD) Non-Af 49 L BUN/Creatinine Ratio 9.1 L Glucose 181 H Lactic Acid 1.6 Calcium 8.9 Total Bilirubin 0.30 AST 19 ALT 16 Alkaline Phosphatase 112 Total Protein 6.7 Albumin 2.9 L Globulin 3.8 Albumin/Globulin Ratio 0.8 L Radiography Diagnostic Testing: Clinical Impression(s) from Imaging Studies Chest X-Ray 11/17/23 19:29 IMPRESSION: Right basilar atelectasis, otherwise no acute cardiopulmonary disease. Electronically Signed: Gabi Calderon MD at 20:58 EST Reading Location ID and State: [facility] / [place] , Service support , Foot X-Ray 11/17/23 19:52 IMPRESSION: Diffuse soft tissue swelling as described with questionable ulceration or focal infectious process over the anterior dorsum of the foot. Peripheral arterial disease. No acute fracture or subluxation. Electronically Signed: Gabi Calderon MD at 20:30 EST , Discharge Plan Triage Chief Complaint: Fever ED Provider: Rolo Gilman Dx/Rx/DC Orders Clinical Impression: History of COPD, Type 2 diabetes mellitus, Generalized weakness, Encounter for medical screening examination, Chronic pain in left foot Instructions: ED Chronic Pain, ED Screening Exam Medical Nonurgent Prescriptions: No Action (DME) Ultra-Light Rollator Misc See Rx Instructions .Route Qty: 1 2RF Rx Instructions: As directed (DME) pen needle, diabetic 33 gauge x 5/16 needle See Rx Instructions .Route Qty: 200 3RF Rx Instructions: As directed melatonin 3 mg tablet 3 mg PO QHS fluoxetine 20 mg capsule 20 mg PO DAILY Patient Comments: TAKE ONE 20MG AND ONE 40MG CAPSULE BY MOUTH ONCE DAILY FOR A TOTAL DOSE OF 60MG (DME) Lift Chair See Rx Instructions .Route .MEDSUPPLY Qty: 1 0RF Rx Instructions: As directed (DME) gauze bandage [Bordered Gauze] 4 X 4 bandage See Rx Instructions .ROUTE .MEDSUPPLY Qty: 14 2RF Rx Instructions: Daily cleanse left foot wound with soap and water, dry and apply Betadine solution and apply clean dressing fluoxetine 40 mg capsule 40 mg PO DAILY Patient Comments: TAKE ONE 20MG AND ONE 40MG CAPSULE BY MOUTH ONCE DAILY FOR A TOTAL DOSE OF 60MG trazodone 150 mg tablet 150 mg PO QHS pantoprazole 40 mg tablet,delayed release (DR/EC) 40 mg PO DAILY atorvastatin 80 mg tablet 80 mg PO QHS bisacodyl 10 mg suppository 10 mg HI DAILY PRN (Reason: CONSTIPATION ) amlodipine 10 mg tablet 10 mg PO BID aspirin [Ecotrin Low Strength] 81 mg tablet,delayed release (DR/EC) 81 mg PO DAILY lorazepam 0.5 mg tablet 0.5 mg PO Q4H PRN (Reason: ANXIETY/AGITATION ) glimepiride 2 mg tablet 2 mg PO BID hydroxyzine HCl 25 mg tablet 50 mg PO QHS Levemir FlexPen 100 unit/mL (3 mL) insulin pen 20 unit SUBCUT BID magnesium 250 mg tablet 250 mg PO DAILY hyoscyamine sulfate 0.125 mg tablet 0.125 mg PO Q4H PRN (Reason: BLADDER) isosorbide mononitrate 30 mg tablet extended release 24 hr 30 mg PO DAILY metoclopramide HCl 5 mg tablet 5 mg PO TID nitroglycerin 0.4 mg tablet, sublingual 0.4 mg sublingual Q5M PRN (Reason: CHEST PAIN ) sennosides-docusate sodium [Senna Plus] 8.6-50 mg tablet 1 tab-cap PO BID tizanidine 2 mg tablet 2 mg PO Q8H PRN (Reason: MUSCLE SPASMS ) ascorbic acid (vitamin C) 500 mg tablet 500 mg PO BID clopidogrel 75 mg tablet 75 mg PO QHS pregabalin 75 mg Capsule 75 mg PO Q12H PRN (Reason: PAIN ) (DME) FreeStyle Mago 14 Day Sensor Kit See Rx Instructions .Route Rx Instructions: As directed; check BS 3x daily for DMII vancomycin in dextrose 5 % 1 gram/200 mL Piggyback 1,000 mg IV Q24H 37 Days Qty: 7400 0RF Rx Instructions: stop date 12/01/23. dx: foot osteo weekly bmp, cbc, vanc trough, and ESR. Fax to [phone] oxycodone 5 mg tablet 5 mg PO Q6H PRN (Reason: pain) 3 Days Qty: 12 0RF glucagon HCl [Glucagon (HCl) Emergency Kit] 1 mg recon soln 1 mg IM Q15M PRN (Reason: hypoglycemia) Rx Instructions: until target blood sugar attained dextrose [Gluco Burst] 40 % gel 15 g PO Q15M PRN (Reason: hypoglycemia) Rx Instructions: until symptoms of low blood sugar are controlled (DME) Wheelchair See Rx Instructions .Route .MEDSUPPLY Qty: 1 0RF Rx Instructions: As directed Primary Care Provider: Doretha Brown Referrals: Doretha Brown MD [Primary Care Provider] - Disposition Disposition: [facility] Facility Discharge Location: [facility]
[2023-11-17 19:46] LABS: Absolute Lymphocyte Count 1.58 X10^3/uL (0.83-4.51); Absolute Neutrophil Count 7.5 X10^3/uL (2.0-7.7); Basophil# 0.08 X10^3/uL; Basophil% 0.7 % (0-1); Eosinophil# 0.33 X10^3/uL; Hematocrit 31.3 % (40-54); Hemoglobin 9.8 g/dL (13.0-16.5); Lymphocyte # 1.58 X10^3/ul (0.83-4.51); Lymphocyte % 14.3 % (19-41); Mean Corp Hgb Conc 31.3 g/dL (32-36); Mean Corpuscular Hgb 26.6 pg (27.0-32.0); Mean Corpuscular Volume 85.1 fL (80-94); Mean Platelet Vol. 10.5 fl (6.2-12.0); Monocyte# 1.54 X10^3/uL; Monocyte% 13.9 % (0-10); NRBC Flagged by Analyzer 0 % (0-5); Neutrophil # 7.49 X10^3/uL (2.7-7.7); Neutrophil % 67.7 % (47-70); POSITIVE DIFFERENTIAL YES; Platelet Count 257 K/mm3 (150-450); RBC Distribution Width CV 14.7 % (11.6-14.6); RBC Distribution Width SD 45.9 fl (35.1-43.9); Red Blood Count 3.68 M/mm3 (4.6-6.2); White Blood Count 11.1 K/mm3 (4.4-11.0)
[2023-11-17 19:49] LABS: Differential Indicated SCAN CRITERIA MET
--- NOTE | 2023-11-17 19:52 | RAD_ITS ---
STUDY: X-RAY - LEFT FOOT CLINICAL: Male, 63 years old. Pain, fever TECHNIQUE: 3 view(s) of the foot. COMPARISON: None. FINDINGS: Status post fixation screw through the medial malleolus. Degenerative arthrosis of the tibiotalar articulation. Lucency through the posterior calcaneus, likely related to previous surgery. Plantar calcaneal spur. Otherwise normal talus and calcaneus. Normal visualized subtalar, talonavicular, calcaneocuboid, tarsal and tarsometatarsal articulations. Normal metatarsi. There is mild degenerative arthrosis of the metatarsophalangeal joint of the hallux . Normal tibial and fibular sesamoid bones. Normal interphalangeal joint of the great toe. Normal phalanges of the great toe. Normal second through fifth metatarsophalangeal joints. Normal interphalangeal joints and phalanges of the lesser toes. Diffuse soft tissue swelling through the plantar region of the foot and anterior dorsum. Vascular calcifications consistent with peripheral arterial disease. Small droplets of air along the soft tissues of the anterior dorsum of the foot suggestive of ulceration or infectious process. RAD/Foot min 3 Views IMPRESSION: Diffuse soft tissue swelling as described with questionable ulceration or focal infectious process over the anterior dorsum of the foot. Peripheral arterial disease. No acute fracture or subluxation. Electronically Signed: Gabi Calderon MD at 20:30 EST ,
[2023-11-17 20:06] LABS: ALB/GLOB Ratio 0.8 RATIO (0.9-2.4); AST(SGOT) 19 U/L (15-37); Alanine Aminotransfer ALT/SGPT 16 U/L (16-61); Albumin, Serum 2.9 g/dL (3.2-5.0); Alkaline Phosphatase 112 U/L (45-117); Anion Gap 4 (5-15); BUN 14 mg/dL (7-18); BUN/Creat Ratio 9.1 RATIO (10-20); Calcium,Total 8.9 mg/dL (8.5-10.1); Chloride 107 mmol/L (98-107); Creatinine, Serum 1.54 mg/dL (0.70-1.30); EST Glomerular Filtration Rate 49 mL/min (>60); Est Glom Filt Rate - Afr Amer 59 mL/min (>60); Estimated Creatinine Clearance 50.04 ml/min; Globulin 3.8 g/dL (2.2-4.2); Glucose 181 mg/dL (74-106); Protein, Total 6.7 g/dL (6.4-8.2); Sodium Level 140 mmol/L (136-145)
[2023-11-17 20:10] LABS: Lactic Acid 1.6 mmol/L (0.4-1.9)
[2023-11-17 20:45] VITALS: BP 167/89; PULSE 87; RESP 15; TEMP 36.7; O2SAT 93
--- NOTE | 2023-11-17 20:46 | ED.RN ---
Dr. Medrano informed that pt. refuses to be straight cathed at this time.
[2023-11-17 21:04] LABS: Mucous, Urine 0 SEEN /hpf (<or=2+); Red Blood Cells-Urine 0 SEEN /hpf (0-5)
[2023-11-17 21:10] LABS: Color, Urine Yellow (Yellow); Glucose, Dipstick Normal (Normal); Ketone-Dipstick Negative (Negative); Leukocyte Esterase-Dipstick 25 /ul (Negative); Nitrite-Dipstick Negative (Negative); Occult Blood-Urine Negative /ul (Negative); Protein-Dipstick 30 mg/dl (Negative); Urine Bilirubin Dipstick Negative (Negative); Urine Clarity Clear (Clear); Urine Urobilinogen Normal (Normal)
[2023-11-17 21:19] LABS: Bacteria RARE /hpf (None Seen); Hyaline Cast 0-5 SEEN /lpf (0-5); Squamous Epithelial Cells - UA 0-5 SEEN /hpf (0-5); White Blood Cells 5-10 SEEN /hpf (0-5)
[2023-11-17 23:09] VITALS: PULSE 69; RESP 17; O2SAT 97
[2023-11-18 10:47] LABS: Pathologist Review Reviewed
== END 2023-11-17 23:32 | disposition skilled nursing facility (03) ==
PROVIDERS: Emergency Provider Emergency Medicine; PCP Internal Medicine; Visit Provider Emergency Medicine
DX: R53.1 Weakness (principal); E11.51 Type 2 diabetes mellitus with diabetic peripheral angiopathy without gangrene; J44.9 Chronic obstructive pulmonary disease, unspecified; E11.22 Type 2 diabetes mellitus with diabetic chronic kidney disease; E11.42 Type 2 diabetes mellitus with diabetic polyneuropathy; Z79.4 Long term (current) use of insulin; M79.672 Pain in left foot; I25.10 Atherosclerotic heart disease of native coronary artery without angina pectoris; E78.00 Pure hypercholesterolemia, unspecified; N18.9 Chronic kidney disease, unspecified; I12.9 Hypertensive chronic kidney disease with stage 1 through stage 4 chronic kidney disease, or unspecified chronic kidney disease; G89.29 Other chronic pain; I25.2 Old myocardial infarction; K21.9 Gastro-esophageal reflux disease without esophagitis; R50.9 Fever, unspecified
CPT/HCPCS: 36592; 71045; 73630; 80053; 81001; 83605; 85025; 87428; 99283

== ENCOUNTER 2023-11-20 08:54 | Observation (INO) | payer MEDICARE, MEDICAID, SELFPAY ==
[2023-11-20] VITALS (7 sets, daily range): BP systolic 129–192; BP diastolic 75–101; PULSE 74–95; RESP 16–20; TEMP 36.7–37.2; O2SAT 90–98; BMI 36.9; BMI 35.4
[2023-11-20] MEDS: Dextrose 50%-Water 25 GM/50 ML DISP.SYRIN IV (09:33)
--- NOTE | 2023-11-20 09:48 | EX.ED.DYSGE1 ---
HPI History of Present Illness Chief Complaint: Hypoglycemia Informant: patient, EMS and SNF Narrative Narrative: EMS was called to the snf to bring 63-year-old patient to the hospital for hypoglycemia. Patient with multiple chronic medical problems most recently osteomyelitis of the foot requiring rehab placement and long-term antibiotics through PICC line. Patient has been seen in the emergency department multiple times this month. I personally saw him recently where he was asking for a change in facilities because he does not like the food. He is a diabetic and was noted last night at 10 PM to have a blood sugar of 37. Per the snf notes he was given OJ and other oral and it was rechecked at 73. At 1 AM his blood sugar was 57 and he was again given OJ and this time a sugar packet. Rechecked at 145 his blood sugar was 95. At 0730 hrs. this morning his blood sugar was 38 he was given OJ and again sugar while was awake and alert. At 8 AM his blood sugar was 70. They spoke with the snf physician and was advised to bring him to the emergency department. He has a glucagon order but this was reportedly not given. He states he has sometimes been eating food depending on his like of the diet of the day. He states he believes he is still taking his diabetic medications which include glimepiride 2 mg twice daily and Levemir. Patient states that he has not felt diaphoretic. He was recently diagnosed with COVID-19 and notes a cough. He does have oxygen that he is when he needs it. [facility] Medical History Acute osteomyelitis of left foot CELESTE (acute kidney injury) Ambulates with cane Amputation of one or more toes Anxiety and depression Arrhythmia Arthritis Aspiration pneumonia Atherosclerotic heart disease of [place] coronary artery without angina pectoris Back pain Back spasm Bilateral leg weakness Blind left eye Blister (nonthermal), left foot, initial encounter Bronchiectasis with (acute) exacerbation Cardiology follow-up encounter Chronic cough Chronic respiratory failure with hypoxia CKD (chronic kidney disease) COPD (chronic obstructive pulmonary disease) Coronary artery disease CPAP (continuous positive airway pressure) dependence Debility, unspecified Decubitus ulcer limited to breakdown of skin (stage 2) Depression Diabetes Diabetes mellitus Essential hypertension Gastric reflux GERD (gastroesophageal reflux disease) High cholesterol History of aspiration pneumonia History of coronary artery disease History of diabetes mellitus History of echocardiogram History of edema History of gout History of heart attack History of non-ST elevation myocardial infarction (NSTEMI) (08/2016) History of pain when walking History of steroid therapy Hx of type 2 diabetes mellitus Hyperglycemia due to type 2 diabetes mellitus Hypertension Insulin dependent diabetes mellitus Irregular heart beat Kidney stones Left ankle instability Leg pain, right Leukocytosis Low back pain Memory impairment Migraines Mood disorder Non healing left heel wound Non-pressure chronic ulcer of other part of left foot with necrosis of bone Non-smoker Noncompliance by declining intervention or support On home oxygen therapy Peripheral vascular disease, unspecified Peripheral vascular occlusive disease Pneumonia Prostate disease Pulmonary nodule, left Recurrent falls Respiratory failure with hypoxia Right ankle pain Right foot pain Shortness of breath on exertion Silent aspiration Sleep apnea Tremor Type 2 diabetes mellitus with diabetic polyneuropathy Type 2 diabetes mellitus with diabetic polyneuropathy Ulcer of left foot, limited to breakdown of skin Vision loss of left eye Wears glasses Wound of left lower extremity Home Medications gauze bandage 4 X 4 (Bordered Gauze) #14 ea 07/03/22 [Rx Last Taken Unknown] walker (Ultra-Light Rollator [facility] #1 ea 07/21/22 [Rx Last Taken Unknown] pen needle, diabetic 33 gauge x 5/16 #200 ea 12/02/22 [Rx Last Taken Unknown] fluoxetine 20 mg capsule 20 mg PO DAILY ANXIETY 03/23/23 [History Last Taken 10/19/23] melatonin 3 mg tablet 3 mg PO QHS INSOMNIA 03/23/23 [History Last Taken 10/18/23] atorvastatin 80 mg tablet 80 mg PO QHS CHOLESTEROL 05/25/23 [History Last Taken 10/18/23] fluoxetine 40 mg capsule 40 mg PO DAILY ANXIETY 05/25/23 [History Last Taken 10/19/23] pantoprazole 40 mg tablet,delayed release 40 mg PO DAILY ACID REFLUX 05/25/23 [History Last Taken 10/19/23] trazodone 150 mg tablet 150 mg PO QHS INSOMNIA 05/25/23 [History Last Taken 10/18/23] Wheelchair #1 ea 07/23/23 [Rx Last Taken Unknown] Lift Chair #1 ea 08/06/23 [Rx Last Taken Unknown] bisacodyl 10 mg rectal suppository 10 mg ME DAILY PRN CONSTIPATION 08/28/23 [History Last Taken Unknown] amlodipine 10 mg tablet 10 mg PO BID BLOOD PRESSURE 10/19/23 [History Last Taken 10/19/23] ascorbic acid (vitamin C) 500 mg tablet 500 mg PO BID SUPPLEMENT 10/19/23 [History Last Taken 10/19/23] aspirin 81 mg tablet,delayed release (Ecotrin Low Strength) 81 mg PO DAILY HEART HEALTH 10/19/23 [History Last Taken 10/19/23] clopidogrel 75 mg tablet 75 mg PO QHS BLOOD THINNER 10/19/23 [History Last Taken 10/18/23] glimepiride 2 mg tablet 2 mg PO BID DIABETES 10/19/23 [History Last Taken 10/19/23] hydroxyzine HCl 25 mg tablet 50 mg PO QHS 10/19/23 [History Last Taken 10/18/23] hyoscyamine sulfate 0.125 mg tablet 0.125 mg PO Q4H PRN BLADDER 10/19/23 [History Last Taken Unknown] insulin detemir U-100 100 unit/mL (3 mL) subcutaneous pen (Levemir FlexPen) 20 unit subcut BID DIABETES 10/19/23 [History Last Taken 10/19/23] isosorbide mononitrate 30 mg tablet,extended release 24 hr 30 mg PO DAILY HEART 10/19/23 [History Last Taken 10/19/23] lorazepam 0.5 mg tablet 0.5 mg PO Q4H PRN ANXIETY/AGITATION 10/19/23 [History Last Taken Unknown] magnesium 250 mg tablet 250 mg PO DAILY SUPPLEMENT 10/19/23 [History Last Taken 10/19/23] metoclopramide HCl 5 mg tablet 5 mg PO TID INTESTINES 10/19/23 [History Last Taken 10/19/23] nitroglycerin 0.4 mg sublingual tablet 0.4 mg sublingual Q5M PRN CHEST PAIN 10/19/23 [History Last Taken Unknown] pregabalin 75 mg capsule 75 mg PO Q12H PRN PAIN 10/19/23 [History Last Taken Unknown] sennosides 8.6 mg-docusate sodium 50 mg tablet (Senna Plus) 1 tab-cap PO BID CONSTIPATION 10/19/23 [History Last Taken 10/19/23] tizanidine 2 mg tablet 2 mg PO Q8H PRN MUSCLE SPASMS 10/19/23 [History Last Taken Unknown] flash glucose sensor (FreeStyle Mago 14 Day Sensor kit) 10/20/23 [History Last Taken Unknown] oxycodone 5 mg tablet 5 mg PO Q6H PRN pain 3 days #12 tabs 10/25/23 [Rx Last Taken Unknown] vancomycin 1 gram/200 mL in dextrose 5 % intravenous piggyback 1,000 mg IV Q24H 37 days #7,400 mL 10/25/23 [Rx Last Taken Unknown] dextrose 40 % oral gel (Gluco Burst) 15 g PO Q15M PRN hypoglycemia 11/12/23 [History Last Taken Unknown] glucagon HCl 1 mg solution for injection (Glucagon (HCl) Emergency Kit) 1 mg IM Q15M PRN hypoglycemia 11/12/23 [History Last Taken Unknown] Allergy/AdvReac Type Severity Reaction Status Date / Time allopurinol AdvReac Vomiting Verified 11/20/23 08:55 Influenza Virus Vaccines AdvReac Vomiting Verified 11/20/23 08:55 pneumococcal vaccine AdvReac Vomiting Verified 11/20/23 08:55 Family History Mother Diabetes Heart disease CHF Father Heart disease CO/CAD Myocardial infarction Surgical History H/O lithotripsy History of angioplasty of peripheral vessel (2016) History of angioplasty of peripheral vessel History of ankle surgery History of cardiac catheterization History of coronary artery stent placement (08/2016) History of coronary artery stent placement History of esophagogastroduodenoscopy (EGD) History of left heart catheterization (11/15/17) History of thyroid surgery Hx of lithotripsy Hx of surgery to heart and great vessels, presenting hazards to health Hx of surgical procedure Hx of thyroidectomy Hx of toe surgery Hx of toe surgery PEG (percutaneous endoscopic gastrostomy) status Social History household members: spouse housing: snf Smoking Status: Never smoker alcohol intake: never substance use type: does not use ROS ROS ED Constitutional Constitutional ED: Denies chills, fever(s) or weight loss Eyes Eyes: Denies change in vision or diplopia ENT ENT ED: Reports rhinorrhea; Denies ear pain or sore throat Cardiovascular Cardiovascular: Denies chest pain, orthopnea, palpitations or racing heartbeat Respiratory/Chest Respiratory/Chest: Reports cough and dyspnea; Denies orthopnea Gastrointestinal Gastrointestinal: Denies abdominal pain, diarrhea, nausea or vomiting Genitourinary Genitourinary ED: Denies dysuria, hematuria or urinary frequency Musculoskeletal Musculoskeletal: Denies arthralgias or myalgias Integumentary Denies abscess or rash Neurologic Neurologic: Denies headache(s) or weakness Psychiatric Psychiatric: Denies anxiety, depression, suicidal ideation or suicidal thoughts Endocrine Endocrinology: Denies polydipsia, polyphagia or polyuria Allergic/Immunologic Allergic/Immunologic ED: Denies mouth swelling, tongue swelling or urticaria EXAM Physical Exam Const Vital Signs: 11/20/23 08:55 11/20/23 08:55 11/20/23 10:04 Temperature 99.0 F Temperature Source Temporal Pulse Rate 95 83 Respiratory Rate 18 20 H Respiratory Effort Normal Respiratory Pattern Normal Normal Blood Pressure 175/98 H Blood Pressure Mean 123 Pulse Ox 93 Oxygen Delivery Method Room Air 11/20/23 10:30 Temperature Temperature Source Pulse Rate 86 Respiratory Rate 17 Respiratory Effort Respiratory Pattern Blood Pressure 192/99 H Blood Pressure Mean 130 Pulse Ox 98 Oxygen Delivery Method Room Air Positive well nourished, well developed and obese General Appearance ED: well developed Nutritional Appearance: obese HEENT Reports normocephalic, head/scalp atraumatic and moist mucous membranes Eyes PERRL and EOMs intact bilaterally Neck no lymphadenopathy, supple and no JVD Resp normal respiratory effort Auscultation: rhonchi and wheezes expiratory wheezes (Slight) Cardio regular rate, regular rhythm and no murmurs GI normal to inspection, nondistended, normoactive bowel sounds and non-tender Palpation: soft Back/Spine no CVA tenderness and normal ROM Extremity normal to inspection Extremity Narrative: Left arm PICC line. Left foot changes postoperatively/postoperative wound General Extremety ED: Negative for edema General Extremity: Negative for edema Neuro oriented x3 and CN's II-XII intact bilaterally Sensorium / Orientation: alert Motor Exam: strength 5/5 throughout Psych mental status grossly normal Mood & Affect: Negative for depressed or tearful Skin no rashes or lesions noted MDM MDM MDM Narrative Medical decision making narrative: 63-year-old male presenting to the emergency room with recurrent diabetic hypoglycemia. Patient believes he has been receiving his diabetic medications. His appetite has not been well. Recently diagnosed with COVID-19. My independent interpretation of the chest x-ray is improvement with no large consolidation or significant worsening. The patient received initially IV glucose. He has not been eating very much since he has been here despite encouragement. His blood sugar dropped again. This makes about 12 hours of recurrent hypoglycemia and we placed him on D5 normal saline. From the oxygenation standpoint. He is on long-term antibiotics for the osteomyelitis through PICC line.I am not seeing that he needs to be hospitalized History & Record Review Discussion w/independent historian: EMS personnel and Patient Additional record(s) reviewed:: Prior inpatient record, Prior outpatient record, Prior ED visit and Prior labs Lab Data Attestation: I reviewed the patient's lab results. Labs: Laboratory Results - last 24 hr 11/20/23 09:17 Sodium 140 Potassium 3.6 Chloride 105 Carbon Dioxide 34.0 H Anion Gap 1 L BUN 15 Creatinine 1.54 H Estim Creat Clear Calc 50.04 Est GFR (MDRD) Af Amer 59 L Est GFR (MDRD) Non-Af 49 L BUN/Creatinine Ratio 9.7 L Glucose 52 L Calcium 8.7 Total Bilirubin 0.30 AST 25 ALT 18 Alkaline Phosphatase 96 Total Protein 6.5 Albumin 2.7 L Globulin 3.8 Albumin/Globulin Ratio 0.7 L Lipase 24 Radiography Diagnostic Testing: Clinical Impression(s) from Imaging Studies Chest X-Ray 11/20/23 09:50 IMPRESSION: Decreased right basilar atelectasis or consolidation. Electronically Signed: Dulce Brand MD at 10:40 EST Reading Location ID and State: [facility] / [place] Tel , Service support , Management Discussion w/another healthcare provider: Hospitalist Discharge Plan Dx/Rx/DC Orders Clinical Impression: Diabetic hypoglycemia, Chronic respiratory failure with hypoxia, Osteomyelitis, Type 2 diabetes mellitus, COVID-19 Disposition Disposition: Acute Care [facility]
--- NOTE | 2023-11-20 09:50 | RAD_ITS ---
HISTORY: covid 19. TECHNIQUE: XR Chest 1 View. COMPARISON: 11/17/2023. FINDINGS: LINES/TUBES: Left PICC tip at the level of the distal superior vena cava. CARDIOMEDIASTINAL BORDERS: Stable. LUNGS: Decreased right basilar opacity with elevation of the right hemidiaphragm again seen. PLEURA: No pleural effusion or pneumothorax. RAD/Chest 1 View (Portable) IMPRESSION: Decreased right basilar atelectasis or consolidation. Electronically Signed: Dulce Brand MD at 10:40 EST ,
[2023-11-20 10:04] LABS: ALB/GLOB Ratio 0.7 RATIO (0.9-2.4); AST(SGOT) 25 U/L (15-37); Alanine Aminotransfer ALT/SGPT 18 U/L (16-61); Albumin, Serum 2.7 g/dL (3.2-5.0); Alkaline Phosphatase 96 U/L (45-117); Anion Gap 1 (5-15); BUN 15 mg/dL (7-18); BUN/Creat Ratio 9.7 RATIO (10-20); Calcium,Total 8.7 mg/dL (8.5-10.1); Chloride 105 mmol/L (98-107); Creatinine, Serum 1.54 mg/dL (0.70-1.30); EST Glomerular Filtration Rate 49 mL/min (>60); Est Glom Filt Rate - Afr Amer 59 mL/min (>60); Estimated Creatinine Clearance 50.04 ml/min; Globulin 3.8 g/dL (2.2-4.2); Glucose 52 mg/dL (74-106); Lipase 24 U/L (13-75); Potassium 3.6 mmol/L (3.5-5.1); Protein, Total 6.5 g/dL (6.4-8.2); Sodium Level 140 mmol/L (136-145)
[2023-11-20] MEDS: Ipratropium/Albuterol Sulfate 3 ML AMPUL.NEB INHALATION (10:04)
--- OUTSIDE RECORDS SUMMARY | 2023-11-20 10:28 | XMS RPT_ITS | CCD ---
Author Name Unknown Address [id number] [place] [address] Organization [facility] Care Team Providers Care Criminal Justice Instructor Name Role Phone CHARLES RIZO Unavailable Unavailable TOM PENDLETON Unavailable Unavailable KOMITNATALI, CHARLES Unavailable Unavailable MAXINE WEEMS Unavailable Unavailable ERIK, CHARLES Unavailable Unavailable MAXINE WEEMS Unavailable Unavailable BOBO JONES Unavailable Unavailable DONAVAN, WAHIB Unavailable Unavailable DONAVAN, WAHIB Unavailable Unavailable DONAVAN, WAHIB Unavailable Unavailable DONAVAN, WAHIB Unavailable Unavailable LIBERTIN III, EYAL S Unavailable Unavail able Charles Rizo Primary Care Provider [phone] Charles Rizo Primary Care Provider CHARLES RIZO Primary Care Unavailable SKYE GO Admitting Unavailab SKYE Mena Attending Unavailab STEF Sanchez Consulting Unavailable KOMITAU, CHARLES Primary Care Unavailable ROXANNE VALENCIA~[id number] Attending Unavaila ble ERIK, CHARLSE Primary Care Unavailable ERIK, CHARLES Primary Care Unavailable MANOJMITNATALI, CHARLES Primary Care Unavailable MAKADIA, KEN P Referring Unavailable KOMITAU, CHARLES Primary Care Unavailable MAKADIA, KEN P Referring Unavailable KOMITAU, CHARLES Primary Care Unavailable MAKADIA, KEN P Referring Unavailable ERIK, CHARLES Primary Care Unavailable BOBO JONES Referring Unavailable KOMITAU, CHARLES Primary Care Unavailable ALECIA DOW Referring Unavailable KOMITAU, CHARLES Primary Care Unavailable KOMITAU, CHARLES Primary Care Unavailable Charles Rizo MD Primary Care Provider Unavailable Primary Care Provider UnavailPEARL Vazquez Attending Unavailable Allergies Allergy Classification Reported Allergen(s) Allergy Type Date of Onset Reaction(s) Facility (15 sources) allopurinol; Translations: [ALLOPURINOL] Drug Allergy 2 Nausea And Vomiting, Vomiting [facility] (5 sources) pneumococcal vaccine; Translations: [PNEUMOCOCCAL 23-RONIT PS VACCINE] Drug Allergy 4 Vomiting [facility] (5 sources) INFLUENZA VIRUS VACCINES; Translations: [INFLUENZA VIRUS VACCINES] Propensity to adverse reactions to drug (disorder) 4 Intolerance [facility] (1 source) OPIOIDS - MORPHINE ANALOGUES; Translations: [OPIOIDS - MORPHINE ANALOGUES] Propensity to adverse reactions to drug (disorder) 7 AOF [facility] (10 sources) Influenza Vaccines Propensity to adverse reactions to drug 6 [place], [place] (10 sources) Morphine And Related Propensity to adverse reactions to drug 7 Nausea And Vomiting [place], [place] (10 sources) Pneumococcal Vac Polyvalent Propensity to adverse reactions to drug 6 [place], [place] Medications Current Medications Medication Drug Class(es) Dates Sig (Normalized) Sig (Original) ALPRAZolam 0.25 mg oral tablet (10 sources) Benzodiazepine Start: 09-04-2019 take 1 tablet by mouth twice daily as needed ALPRAZolam (XANAX) 0.25 MG tablet TAKE 1 TABLET BY MOUTH TWICE DAILY NEEDED FOR 30 DAYS 0 09/04/2019 Active Completed/Discontinued Medications Medication Drug Class(es) Dates Sig (Normalized) Sig (Original) acetaminophen 500 mg oral tablet (1 source) Start: 02-11-2021 take 2 tablets by mouth every twenty-four hours as needed acetaminophen (TYLENOL) 500 mg tablet Take 2 tablets by mouth at bedtime as needed. 0 02/11/2021 Active Problems Active Problems Problem Classification Problem Date Documented Da te Episodic/Chronic Abdominal pain (1 source) Left upper quadrant pain; Translations: [Left upper quadrant pain] Episodic Acute myocardial infarction (11 sources) Non-ST elevation (NSTEMI) myocardial infarction; Translations: [Myocardial infarction] Onset: 6 08-11-2017 Chronic Anxiety disorders (5 sources) Generalized anxiety disorder; Translations: [Anxiety state] Onset: 7 12-22-2019 Chronic Bacterial infection; unspecified site (3 sources) History of methicillin resistant Staphylococcus aureus infection; Translations: [Personal history of Methicillin resistant Staphylococcus aureus infection] 11-24-2011 Episodic Calculus of urinary tract (5 sources) Calculus of kidney; Translations: [History of calculus of kidney] Onset: 8 11-24-2021 Episodic Chronic kidney disease (4 sources) Chronic kidney disease stage 3; Translations: [CKD (chronic kidney disease) stage 3, GFR 30-59 ml/min] 05-16-2020 Chronic Coronary atherosclerosis and other heart disease (20 sources) Unstable angina; Translations: [Preinfarction syndrome] Onset: 7 Resolved: 8 06-14-2018 Chronic Coronary atherosclerosis and other heart disease (3 sources) Patient post percutaneous transluminal coronary angioplasty; Translations: [Coronary angioplasty status] 11-25-2021 Episodic Diabetes mellitus with complications (10 sources) Retinopathy due to type 2 diabetes mellitus; Translations: [Type 2 diabetes mellitus with unspecified diabetic retinopathy without macular edema] Onset: 8 04-26-2018 Chronic Diabetes mellitus without complication (11 sources) Diabetes mellitus; Translations: [Type 2 diabetes mellitus] Onset: 2 08-11-2017 Chronic Disorders of lipid metabolism (20 sources) Hyperlipidemia; Translations: [Pure hypercholesterolemia] Onset: 2 12-06-2016 Chronic Esophageal disorders (3 sources) Gastroesophageal reflux disease; Translations: [Gastro-esophageal reflux disease without esophagitis] Onset: 6 03-18-2016 Chronic Essential hypertension (15 sources) Essential (primary) hypertension; Translations: [Essential hypertension] Onset: 2 12-06-2016 Chronic Genitourinary symptoms and ill-defined conditions (4 sources) Hematuria, unspecified; Translations: [Microalbuminuria] Onset: 8 12-22-2019 Episodic Glaucoma (3 sources) Glaucoma; Translations: [Unspecified glaucoma] 10-26-2018 Chronic Hyperplasia of prostate (4 sources) Benign prostatic hyperplasia; Translations: [Benign prostatic hyperplasia without lower urinary tract symptoms] 07-01-2017 Chronic Hypertension with complications and secondary hypertension (9 sources) Hypertensive emergency; Translations: [Hypertensive emergency] Onset: 9 08-20-2019 Chronic Infective arthritis and osteomyelitis (except that caused by tuberculosis or sexually transmitted disease) (10 sources) Osteomyelitis of right foot; Translations: [Osteomyelitis of right foot] Onset: 2 08-11-2017 Mood disorders (3 sources) Major depressive disorder; Translations: [Major depressive disorder, single episode, unspecified] 01-28-2021 Chronic Nutritional deficiencies (3 sources) Vitamin D deficiency; Translations: [Vitamin D deficiency, unspecified] Onset: 0 10-31-2020 Chronic Osteoarthritis (6 sources) Arthritis of hip; Translations: [Unilateral primary osteoarthritis, unspecified hip] Onset: 0 05-19-2010 Chronic Other and unspecified benign neoplasm (3 sources) History of polyp of colon; Translations: [Personal history of colonic polyps] 08-29-2018 Episodic Other bone disease and musculoskeletal deformities (3 sources) Absence of toe; Translations: [Acquired absence of other toe(s), unspecified side] 01-28-2021 Episodic Other congenital anomalies (4 sources) Elevated diaphragm; Translations: [Elevated diaphragm] Onset: 0 05-08-2020 Chronic Other connective tissue disease (1 source) Pain in right lower limb; Translations: [Right leg pain] Episodic Other connective tissue disease (3 sources) H/O: gout; Translations: [Personal history of other diseases of the musculoskeletal system and connective tissue] 03-18-2016 Episodic Other gastrointestinal disorders (1 source) Constipation; Translations: [Constipation, unspecified] Episodic Other lower respiratory disease (3 sources) Elevated diaphragm; Translations: [Disorders of diaphragm] 01-28-2021 Episodic Other nervous system disorders (3 sources) Abnormal gait; Translations: [Unsteadiness on feet] 02-12-2021 Episodic Other nervous system disorders (3 sources) Finding of hand region; Translations: [Tremor, unspecified] 03-03-2021 Episodic Other non-traumatic joint disorders (1 source) Pain in right hip joint; Translations: [Pain of right hip joint] Other nutritional; endocrine; and metabolic disorders (7 sources) Body mass index 30+ - obesity; Translations: [Obesity (BMI 30-39.9)] Onset: 0 02-01-2020 Chronic Other nutritional; endocrine; and metabolic disorders (3 sources) Obesity; Translations: [Obesity, unspecified] Onset: 3 04-03-2013 Chronic Other nutritional; endocrine; and metabolic disorders (1 source) Severe obesity; Translations: [Morbid (severe) obesity due to excess calories] Chronic Peripheral and visceral atherosclerosis (20 sources) Peripheral vascular disease; Translations: [Intermittent claudication] Onset: 7 02-17-2017 Chronic Residual codes; unclassified (10 sources) Obstructive sleep apnea syndrome; Translations: [Obstructive sleep apnea (adult) (pediatric)] Onset: 0 02-01-2020 Chronic Respiratory failure; insufficiency; arrest (adult) (3 sources) Dependence on supplemental oxygen; Translations: [Dependence on supplemental oxygen] 05-26-2021 Chronic Spondylosis; intervertebral disc disorders; other back problems (2 sources) Sciatica; Translations: [Lumbar radiculopathy] Episodic Unclassified (1 source) Infection and inflammatory reaction due to indwelling urethral catheter, initial encounter; Translations: [Infection and inflammatory reaction due to indwelling urethral catheter, initial encounter] Onset: 8 Urinary tract infections (1 source) Urinary tract infection, site not specified; Translations: [Urinary tract infection, site not specified] Onset: 8 Episodic Past or Other Problems Problem Classification Problem Date Documented Da te Episodic/Chronic Nonspecific chest pain (20 sources) Chest pain; Translations: [Precordial pain] Onset: 12-06-2016 Resolved: 06-24-2017 06-24-2017 Episodic Other connective tissue disease (1 source) Other muscle spasm; Translations: [Other muscle spasm] Onset: 10-04-2017 Episodic Other lower respiratory disease (8 sources) Lung mass; Translations: [Lung nodule] Onset: 02-01-2020 02-01-2020 Episodic Other lower respiratory disease (7 sources) Dyspnea; Translations: [Shortness of breath] Onset: 02-01-2020 02-01-2020 Episodic Other non-traumatic joint disorders (1 source) Ankle pain; Translations: [Left ankle pain, unspecified chronicity] Episodic Pneumonia (except that caused by tuberculosis or sexually transmitted disease) (11 sources) Pneumonia; Translations: [Infective pneumonia] Onset: 11-27-2018 11-27-2018 Episodic Sprains and strains (1 source) Strain of muscle, fascia and tendon of lower back, initial encounter; Translations: [Strain of muscle, fascia and tendon of lower back, initial encounter] Onset: 10-04-2017 Episodic Results Test Name Value Interpretation Reference Range Facil ity Vital Signs Date Time Vital Sign Value Performing Clinician Facility 04-08-2023 13:12-0400 Body height 177.8 cm Pearl Mckinley APRN.RN ON SITE Work Phone: [facility] 04-08-2023 13:12-0400 Body weight 123.38 kg Pearl Mckinley APRN.RN ON SITE Work Phone: [facility] 04-08-2023 13:12-0400 Diastolic blood pressure 83 mm[Hg] Pearl Mckinley BOOKSTORE CLERK.RN ON SITE Work Phone: [facility] 04-08-2023 13:12-0400 Heart rate 53 /min Pearl Mckinley APRN.RN ON SITE Work Phone: [facility] 04-08-2023 13:12-0400 SaO2% (BldA) [Mass fraction] 95 % Pearl Mckinley APRN.RN ON SITE Work Phone: [facility] 04-08-2023 13:12-0400 Systolic blood pressure 155 mm[Hg] Pearl Potterro BOOKSTORE CLERK.RN ON SITE Work Phone: [facility] 08-13-2020 18:59-0400 BP Diastolic 81 mm[Hg] [facility] , [place] 08-13-2020 18:59-0400 BP Systolic 153 mm[Hg] [facility] , [place] 08-13-2020 18:59-0400 Pulse (Heart Rate) 73 /min [facility], [place] 08-13-2020 18:59-0400 Pulse Oximetry 99 % [place], [place] 08-13-2020 18:59-0400 Respiratory Rate 18 /min [facility], [place] 04-23-2020 12:02-0400 BMI (Body Mass Index) 35.87 kg/m2 [address] [place], [place] 04-23-2020 12:02-0400 Body weight 113.[address] , [place] 04-23-2020 12:02-0400 BP Diastolic 69 mm[Hg] [address] , [place] 04-23-2020 12:02-0400 BP Systolic 110 mm[Hg] [address] , [place] 04-23-2020 12:02-0400 Height 177.[address] , [place] 04-23-2020 12:02-0400 Pulse (Heart Rate) 89 /min [address], [place] 04-23-2020 12:02-0400 Respiratory Rate 18 /min [address], [place] 04-12-2020 17:19-0400 BP Diastolic 94 mm[Hg] [facility] [place] 04-12-2020 17:19-0400 BP Systolic 173 mm[Hg] [facility] [place] 04-12-2020 17:18-0400 BMI (Body Mass Index) 35.87 kg/m2 [facility] [place] 04-12-2020 17:18-0400 Body Temperature 97.81 [degF] [facility] [place] 04-12-2020 17:18-0400 Body weight 113.4 kg [facility] [place] 04-12-2020 17:18-0400 Height 177.8 cm [facility] [place] 04-12-2020 17:18-0400 Pulse (Heart Rate) 79 /min [facility] [place] 04-12-2020 17:18-0400 Pulse Oximetry 94 % [facility] [place] 04-12-2020 17:18-0400 Respiratory Rate 18 /min [facility] [place] 10-14-2019 11:30-0500 BP Diastolic 90 mm[Hg] [facility] [place] 10-14-2019 11:30-0500 BP Systolic 157 mm[Hg] [facility] [place] 10-14-2019 11:30-0500 Pulse (Heart Rate) 71 /min [facility] [place] 10-14-2019 11:30-0500 Pulse Oximetry 94 % [facility] [place] 10-14-2019 11:30-0500 Respiratory Rate 20 /min [facility] [place] 10-14-2019 10:21-0500 BMI (Body Mass Index) 35.87 kg/m2 [facility], [place] 10-14-2019 10:21-0500 Body Temperature 97.39 [degF] [facility] [place] 10-14-2019 10:21-0500 Body weight 113.4 kg [facility] [place] 10-14-2019 10:21-0500 [facility] [place] 09-05-2019 20:00-0400 BP Diastolic 96 mm[Hg] [facility] [place] 09-05-2019 20:00-0400 BP Systolic 141 mm[Hg] [facility] , [place] 09-05-2019 20:00-0400 Pulse (Heart Rate) 88 /min [facility], [place] 09-05-2019 20:00-0400 Pulse Oximetry 96 % [facility] [place] 09-05-2019 19:35-0400 Respiratory Rate 19 /min [facility] [place] 09-05-2019 16:35-0400 BMI (Body Mass Index) 36.16 kg/m2 [facility] [place] 09-05-2019 16:35-0400 Body Temperature 97.7 [degF] [facility] [place] 09-05-2019 16:35-0400 Body weight 114.31 kg [facility] [place] 09-05-2019 16:35-0400 Height 177.8 cm [facility] [place] 07-27-2019 15:38-0400 BMI (Body Mass Index) 35.87 kg/m2 [facility] [place] [place] 07-27-2019 15:38-0400 Body Temperature 97.39 [degF] [place] 07-27-2019 15:38-0400 Body weight 113.4 kg Charles [place], [place] 07-27-2019 15:38-0400 BP Diastolic 89 mm[Hg] Charles [place], [place] 07-27-2019 15:38-0400 BP Systolic 158 mm[Hg] [place] 07-27-2019 15:38-0400 Height 177.8 cm [place] 07-27-2019 15:38-0400 Pulse (Heart Rate) 74 /min [facility], [place] 07-27-2019 15:38-0400 Pulse Oximetry 96 % [place] 07-27-2019 15:38-0400 Respiratory Rate 20 /min [place] Encounters Encounter Date Encounter Type Care Provider Facility Start: 04-08-2023 End: 04-08-2023 ambulatory PEARL MCKINLEY Facility:[facility] Start: 04-08-2023 End: 04-08-2023 Patient encounter procedure Pearl Mckinley APRN.CNP Work Phone: Urology Procedures Date Procedure Procedure Detail Performing Clinician Start: 08-13-2020 Sedimentation rate r bc automated CHARLES RIZO Start: 08-13-2020 Radex ankle complete minimum 3 views CHARLES RIZO Start: 08-13-2020 Radex foot complete minimum 3 views CHARLES RIZO Start: 08-13-2020 Radiologic examinati on tibia & fibula 2 views CHARLES RIZO Start: 08-13-2020 C-reactive protein DEREK RIZO Start: 08-13-2020 Assay of blood/uric acid CHARLES RIZO Start: 08-13-2020 Blood count complete auto&auto difrntl wbc CHARLES RIZO Start: 08-13-2020 Comprehensive metabo lic panel CHARLES RIZO Start: 08-13-2020 Sedimentation rate r bc automated Attilla Kiss Work Phone: Start: 08-13-2020 Radex ankle complete minimum 3 views Jamal Veliz Work Phone: Start: 08-13-2020 Radex foot complete minimum 3 views Jamal Veliz Work Phone: Start: 08-13-2020 Radiologic examinati on tibia & fibula 2 views Jamal Veliz Work Phone: Start: 08-13-2020 C-reactive protein Jena Mckeon Work Phone: Start: 08-13-2020 Assay of blood/uric acid Jamal Veliz Work Phone: Start: 08-13-2020 Blood count complete auto&auto difrntl wbc Jamal Veliz Work Phone: Start: 08-13-2020 Comprehensive metabo lic panel Jamal Veliz Work Phone: Start: 08-10-2020 Dup-scan lxtr art/ar tl bpgs compl bi study CHARLES RIZO Start: 08-10-2020 Radex hip unilateral with pelvis 2-3 views CHARLES RIZO Start: 08-10-2020 Radex spine lumbosac ral 2/3 views CHARLES RIZO Start: 08-10-2020 Radex hip unilateral with pelvis 2-3 views Sunjay Miki Work Phone: Start: 08-10-2020 Radex spine lumbosac ral 2/3 views Sunjay Miki Work Phone: Start: 04-23-2020 Lung differential function CHARLES KOMITNATALI Start: 04-23-2020 Ct thorax w/o contra st material CHARLES KOMITNATALI Start: 04-23-2020 Lung differential function Ken P Makadia Work Phone: Start: 04-23-2020 Ct thorax w/o contra st material Ken P Makadia Work Phone: Start: 04-12-2020 Radex ankle complete minimum 3 views CHARLES RIZO Start: 04-12-2020 Radex foot complete minimum 3 views CHARLES RIZO Start: 10-14-2019 Radiologic exam ches t 2 views CHARLES RIZO Start: 10-14-2019 Ecg routine ecg w/le ast 12 lds w/i&r CHARLES RIZO Start: 10-14-2019 Radiologic exam ches t 2 views Deuce Huynh Work Phone: Start: 09-05-2019 Gluc bld gluc mntr d ev cleared fda spec home use CHARLES RIZO Start: 09-05-2019 Blood count complete auto&auto difrntl wbc CHARLES RIZO Start: 09-05-2019 Assay of lipase CHARLES HARRINGTON Start: 09-05-2019 Assay of magnesium DEREK RIZO Start: 09-05-2019 Assay of troponin quantitative CHARLES RIZO Start: 09-05-2019 Comprehensive metabo lic panel CHARLES RIZO Start: 09-05-2019 Creatine kinase total J DONN ERIK Start: 09-05-2019 Culture bacterial quanttative colony count urine CHARLES RIZO Start: 09-05-2019 Urinalysis microscopic only CHARLES RIZO Start: 09-05-2019 Urnls dip stick/tabl et rgnt auto w/o microscopy CHARLES RIZO Start: 09-05-2019 Ecg routine ecg w/le ast 12 lds w/i&r CHARLES RIZO Start: 09-05-2019 End: 09-05-2019 Gluc bld gluc mntr dev cleared fda spec home use Jamal Veliz Work Phone: Start: 09-05-2019 Blood count complete auto&auto difrntl wbc Jamal Veliz Work Phone: Start: 09-05-2019 Assay of lipase Reilly Veliz Work Phone: Start: 09-05-2019 Assay of magnesium Juniorf leslie Keren Work Phone: Start: 09-05-2019 Assay of troponin quantitative Jamal Veliz Work Phone: Start: 09-05-2019 Comprehensive metabo lic panel Jamal Veliz Work Phone: Start: 09-05-2019 Creatine kinase total G maria r Veliz Work Phone: Start: 09-05-2019 Urinalysis microscopic only Jamal Veliz Work Phone: Start: 09-05-2019 Urnls dip stick/tabl et rgnt auto w/o microscopy Jamal Veliz Work Phone: Start: 08-26-2019 Gluc bld gluc mntr d ev cleared fda spec home use CHARLES RIZO Start: 08-26-2019 Ct head/brain w/o co ntrast material CHARLES RIZO Start: 08-26-2019 Assay of troponin quantitative CHARLES RIZO Start: 08-26-2019 Blood count complete auto&auto difrntl wbc CHARLES RIZO Start: 08-26-2019 Comprehensive metabo lic panel CHARLES RIZO Start: 08-26-2019 Prothrombin time CHARLES RIZO Start: 08-26-2019 Thromboplastin time partial plasma/whole blood CHARLES RIZO Start: 08-26-2019 Urnls dip stick/tabl et rgnt auto w/o microscopy CHARLES RIZO Start: 08-26-2019 Ecg routine ecg w/le ast 12 lds w/i&r CHARLES RIZO Start: 08-26-2019 Gluc bld gluc mntr d ev cleared fda spec home use CHARLES RIZO Start: 08-24-2019 Gluc bld gluc mntr d ev cleared fda spec home use CHARLES RIZO Start: 08-24-2019 CPAP CHARLES NGUYỄN TAU Start: 08-24-2019 DISCHARGE PATIENT CHARLES RIZO Start: 08-24-2019 CPAP CHARLES ARANDAMI TAU Start: 08-24-2019 DME ORDER FOR WALKER OP CHARLES RIZO Start: 08-24-2019 IP CONSULT TO HOME C ARE NEEDS CHARLES RIZO Start: 08-24-2019 CPAP CHARLES ARANDAMI TAU Start: 08-24-2019 INITIATE OXYGEN THER APY PROTOCOL CHARLES RIZO Start: 08-24-2019 Gluc bld gluc mntr d ev cleared fda spec home use CHARLES RIZO Start: 08-24-2019 Basic metabolic pane l calcium total CHARLES RIZO Start: 08-24-2019 CPAP CHARLES ARANDAMI TAU Start: 08-24-2019 CPAP CHARLES DELMA TAU Start: 08-23-2019 Gluc bld gluc mntr d ev cleared fda spec home use CHARLES ARANDAMITAU Start: 08-23-2019 CPAP CHARLES DELMA TAU Start: 08-23-2019 Gluc bld gluc mntr d ev cleared fda spec home use CHARLES MANOJMITAU Start: 08-23-2019 CPAP CHARLESLICO ARANDAMI TAU Start: 08-23-2019 OT EVAL AND TREAT CHARLES RIZO Start: 08-23-2019 PT EVAL AND TREAT CHARLES RIZO Start: 08-23-2019 CPAP CHARLESLICO ARANDAMI TAU Start: 08-23-2019 Gluc bld gluc mntr d ev cleared fda spec home use CHARLES ARANDAMITAU Start: 08-23-2019 CPAP CHARLES DELMA TAU Start: 08-23-2019 INITIATE OXYGEN THER APY PROTOCOL CHARLES RIZO Start: 08-23-2019 Gluc bld gluc mntr d ev cleared fda spec home use CHARLES RIZO Start: 08-23-2019 CPAP CHARLES ARANDAMI TAU Start: 08-23-2019 CPAP CHARLESLICO ARANDAMI TAU Start: 08-22-2019 Gluc bld gluc mntr d ev cleared fda spec home use CHARLES MANOJMITNATALI Start: 08-22-2019 CPAP CHARLESLICO ARANDAMI TAU Start: 08-22-2019 Gluc bld gluc mntr d ev cleared fda spec home use CHARLES MANOJMITNATALI Start: 08-22-2019 CPAP CHARLES DELMA TAU Start: 08-22-2019 Gluc bld gluc mntr d ev cleared fda spec home use CHARLES RIZO Start: 08-22-2019 CPAP CHARLES ARANDAMI TAU Start: 08-22-2019 TRANSFER PATIENT CHARLES VELASQUEZNATALI Start: 08-22-2019 Basic metabolic pane l calcium total CHARLES RIZO Start: 08-22-2019 CPAP CHARLES DELMA TAU Start: 08-22-2019 Gluc bld gluc mntr d ev cleared fda spec home use CHARLES ARANDAMITAU Start: 08-22-2019 INITIATE OXYGEN THER APY PROTOCOL CHARLES ARANDAMITAU Start: 08-21-2019 Gluc bld gluc mntr d ev cleared fda spec home use CHARLES ARANDAMITAU Start: 08-21-2019 TRANSFER PATIENT CHARLES MANOJMARCELINO Start: 08-21-2019 Gluc bld gluc mntr d ev cleared fda spec home use CHARLES RIZO Start: 08-21-2019 Ct thorax w/o contra st material CHARLES RIZO Start: 08-21-2019 TRANSFER PATIENT CHARLES RIZO Start: 08-21-2019 Echo tthrc r-t 2d w/wom-mode compl spec&colr d CHARLES RIZO Start: 08-21-2019 Gluc bld gluc mntr d ev cleared fda spec home use CHARLES RIZO Start: 08-21-2019 OT EVAL AND TREAT CHARLES RIZO Start: 08-21-2019 PT EVAL AND TREAT CHARLES RIZO Start: 08-21-2019 INITIATE OXYGEN THER APY PROTOCOL CHARLES RIZO Start: 08-21-2019 Gluc bld gluc mntr d ev cleared fda spec home use CHARLES RIZO Start: 08-21-2019 Assay of troponin quantitative CHARLES RIZO Start: 08-21-2019 Blood count complete automated CHARLES RIZO Start: 08-21-2019 Assay of troponin quantitative CHARLES RIZO Start: 08-21-2019 IP CONSULT TO SOCIAL WORK CHARLES RIZO Start: 08-21-2019 DAILY WEIGHTS CHARLES MÁRQUEZ Start: 08-21-2019 ELEVATE HEELS OFF OF BED CHARLES RIZO Start: 08-21-2019 HEAD OF BED 60 DEGRE ES OR LESS CHARLES RIZO Start: 08-21-2019 INTAKE AND OUTPUT CHARLES RIZO Start: 08-21-2019 NURSING COMMUNICATION Luan RIZO Start: 08-21-2019 SKIN CARE CHARLES HAND Start: 08-21-2019 TURN PATIENT CHARLES HAND Start: 08-21-2019 IP CONSULT TO [facility] CHARLES RIZO Start: 08-21-2019 DIET CARDIAC CHARLES HAND Start: 08-21-2019 FULL CODE CHARLES HAND Start: 08-21-2019 INITIATE OXYGEN THER APY PROTOCOL CHARLES RIZO Start: 08-21-2019 REASON FOR NO MECHAN ICAL VTE PROPHYLAXIS CHARLES RIZO Start: 08-21-2019 TELEMETRY MONITORING JOANNE RIZO Start: 08-21-2019 TOBACCO CESSATION EDUCATION CHARLES RIZO Start: 08-21-2019 VITAL SIGNS CHARLES HAND Start: 08-21-2019 PATIENT STATUS (FROM ED OR OR/PROCEDURAL) CHARLES RIZO Start: 08-21-2019 Assay of troponin quantitative CHARLES RIZO Start: 08-21-2019 Radiologic exam ches t 2 views CHARLES RIZO Start: 08-20-2019 Assay of troponin quantitative CHARLES RIZO Start: 08-20-2019 Basic metabolic pane l calcium total CHARLES RIZO Start: 08-20-2019 Blood count complete auto&auto difrntl wbc CHARLES RIZO Start: 08-20-2019 Ecg routine ecg w/le ast 12 lds w/i&r CHARLES RIZO Start: 07-07-2018 Colonoscopy Cahrles hand MD Work Phone: Start: 11-13-2017 Chest x-ray 1 view frontal CHARLES RIZO Start: 11-13-2017 IP CONSULT TO CARDIOLOGY CHARLES RIZO Start: 11-13-2017 CBC WITH AUTO DIFFERENTIAL CHARLES RIZO Start: 11-13-2017 COMPREHENSIVE METABO LIC PANEL CHARLES RIZO Start: 11-13-2017 PROTIME-INR CHARLES HAND Start: 11-13-2017 TROPONIN CHARLES HAND Start: 11-13-2017 EKG 12-LEAD CHARLES ARANDAMI TAU Start: 11-13-2017 SALINE LOCK IV CHARLES BENSON Start: 08-10-2017 APTT CHARLES NGUYỄN TAU Start: 08-10-2017 Chest x-ray 1 view frontal CHARLES RIZO Start: 08-10-2017 BASIC METABOLIC PANEL J JACEY RIZO Start: 08-10-2017 BRAIN NATRIURETIC PEPTIDE CHARLES RIZO Start: 08-10-2017 CBC WITH AUTO DIFFERENTIAL CHARLES RIZO Start: 08-10-2017 TROPONIN CHARLES NGUYỄN TAU Start: 08-10-2017 EKG 12-LEAD CHARLES ARANDAMI TAU Start: 08-10-2017 SALINE LOCK IV CHARLES ARANDA MITNATALI Start: 11-24-2011 History of thyroidectomy S/P thyroid ectomy Charles Rizo MD Work Phone: Plan of Treatment Date Care Activity Detail Author Start: 05-16-2025 PROSTATE CANCER SCREENING DISCUSSION PROSTATE CANCER SCREENING DISCUSSION [facility] Start: 07-07-2023 Colonoscopy COLONOSCOPY [facility] Start: 07-07-2023 COLORECTAL CANCER SCREENING COLORECTAL CANCER SCREENING [facility] Start: 05-26-2022 ANNUAL PCP TEAM CHRONIC DISEASE VISIT ANNUAL PCP TEAM CHRONIC DISEASE VISIT [facility] Start: 05-26-2022 BP CONTROLLED (<130/80) BP CONTROLLED (<130/80) [facility] Start: 01-21-2022 SERUM CREATININE SERUM CREATININE [facility] Start: 11-14-2021 HEMOGLOBIN/HEMATOCRIT HEMOGLOBIN/HEMATOCRIT [facility] Start: 11-14-2021 Hepatitis B screening URINE ALBUMIN:CREATININE RATIO [facility] Start: 11-14-2021 Hepatitis B surface antibody level LDL CHOLESTEROL [facility] Start: 09-03-2021 3 comp foot exam completed DIABETIC FOOT EXAM [facility] Start: 08-20-2021 COVID-19 VACCINE (3 - Booster for Pfizer series) COVID-19 VACCINE (3 - Booster for Pfizer series) [facility] Start: 07-21-2021 Hemoglobin A1c/Hemoglobin.total in Blood HBA1C [facility] Start: 07-16-2021 Hepatitis C antibody, confirmatory test DILATED RETINAL EXAM [facility] Start: 05-15-2021 COVID-19 VACCINE (3 - Booster for Pfizer series) COVID-19 VACCINE (3 - Booster for Pfizer series) [facility] Start: 02-12-2021 End: 02-12-2021 Office Visit 02/12/2021 Office Visit Pulmonology Ken Mackey MD [address] [place] [address] [phone] [facility] Start: 11-29-2020 Urine microalbumin profile DTAP,TDAP,TD (2 - Td or Tdap) [facility] Start: 09-05-2020 Creatinine measurement Creatinine monitoring [employer] [place] Start: 09-05-2020 Creatinine monitoring Creatinine monitoring [employer] , [place] Start: 09-05-2020 Potassium monitoring Potassium monitoring [facility] [place], [place] Start: 09-05-2020 End: 09-05-2020 Office Visit 09/05/2020 Office Visit Pain Management Alecia Dow MD [address] [facility] [address] [address] [phone] [facility] Start: 08-26-2020 Creatinine monitoring Creatinine monitoring [facility] [place] , [place] Start: 08-26-2020 Potassium monitoring Potassium monitoring [facility] [place] [place] Start: 08-16-2020 End: 08-16-2020 Virtual Visit 08/16/2020 Virtual Visit Cardiology Bobo Jones DO [address] [place] [address] [phone] [facility] Cardio Vascular Surgery Start: 08-15-2020 End: 08-15-2020 Evaluation 08/15/2020 Evaluation Physical Therapy Kobe Hurt, PT [address] [place] [address] [phone] [facility] Start: 08-12-2020 End: 08-12-2020 Office Visit 08/12/2020 Office Visit Pulmonology Ken Mackey MD [address] [place] [address] [phone] [facility] Start: 07-19-2020 End: 07-19-2020 Office Visit 07/19/2020 Office Visit Cardiology Bobo Jones DO [address] [place] [address] [phone] [facility] Cardio [facility] Surgery Start: 05-07-2020 End: 05-07-2020 Office Visit 05/07/2020 Office Visit Pulmonology Ken Mackey MD [address] [place] [address] [phone] [facility] Start: 04-23-2020 End: 04-23-2020 [facility] Start: 02-19-2020 Creatinine monitoring Creatinine monitoring [facility] [place] , [place] Start: 02-19-2020 Potassium monitoring Potassium monitoring [facility] [place] Start: 12-22-2019 End: 12-22-2019 Office Visit 12/22/2019 Office Visit Cardiology Bobo Jones DO [address] [place] [address] [phone] [facility] Cardio [facility] Start: 11-27-2019 A1C test (Diabetic or Prediabetic) A1C test (Diabetic or Prediabetic) [place], [place] Start: 11-27-2019 HbA1c (Bld) [Mass fraction] A1C test (Diabetic or Prediabetic) [place] Start: 10-23-2019 End: 10-23-2019 Office Visit 10/23/2019 Office Visit Pulmonology Ken Mackey MD [address] [place] [address] [phone] [facility] Pulmon[facility] Start: 09-12-2019 End: 09-12-2019 Office Visit 09/12/2019 Office Visit Cardiology Bobo Jones DO [address] [place] [address] [address] [place] [address] [phone] [facility] [place] Start: 06-18-2019 FECAL OCCULT BLOOD FECAL OCCULT BLOOD [facility] Start: 05-21-2019 Annual Wellness Visit (AWV) Annual Wellness Visit (AWV) [place], [place] Start: 11-15-2018 Lipid panel Lipid screen [place] Start: 11-15-2018 Lipid screen Lipid [place] Start: 04-28-2013 Diabetic microalbuminuria test Diabetic microalbuminuria test [place] Start: 2009 Colon cancer screen colonoscopy Colon cancer screen colonoscopy [place], [place] Start: 2009 Screening for malignant neoplasm of colon Colon cancer screen colonoscopy [place], [place] Start: 2009 Shingles Vaccine (1 of 2) Shingles Vaccine (1 of 2) [place], [place] Start: 02-15-2004 COLOGUARD (FIT-DNA) COLOGUARD (FIT-DNA) [facility] Start: 02-15-[address] COLONOGRAPHY [facility] Start: 02-15-2004 SIGMOIDOSCOPY SIGMOIDOSCOPY [facility] Start: 1978 DTaP/Tdap/Td vaccine (1 - Tdap) DTaP/Tdap/Td vaccine (1 - Tdap) [place], [place] Start: 1977 BP CONTROLLED (<130/80) BP CONTROLLED (<130/80) [facility] Start: 1974 HIV screen HIV screen [place], [place] Start: 1974 HIV screening HIV screen [place] Start: 1970 DTaP/Tdap/Td vaccine (1 - Tdap) DTaP/Tdap/Td vaccine (1 - Tdap) [place] Start: 1969 [object Object] Diabetic foot exam [place] Start: 1969 Diabetic foot examination Diabetic foot exam [place] Start: 1969 Diabetic retinal exam Diabetic retinal exam [place], [place] End: 09-05-2019 Bacteria identified Cx Nom (U) Urine Culture Microbiology STAT Once for 1 Occurrences starting 09/05/2019 until 09/05/2019 [place], [place] Immunizations Immunization Date Immunization Notes Care Provider Fa cili 03-20-2021 COVID-19 vaccine, ag e 12+ yr (PFIZER-BIONTECH - PURPLE TOP) Charles Rizo MD Work Phone: [facility] 03-01-2021 COVID-19 vaccine, ag e 12+ yr (PFIZER-BIONTECH - PURPLE TOP) Charles Rizo MD Work Phone: [facility] 01-08-2021 zoster vaccine recombinant Charles Rizo MD Work Phone: [facility] 09-14-2020 zoster vaccine recombinant Charles Rizo MD Work Phone: [facility] Payers Date Payer Category Payer Medicaid [facility] MEDICA[facility] [employer] [facility] MEDICAID [id number] 2018-Present [phone] [address] [place] [address] Medicaid [id number] 2018 Medicare [id number] 2018 Medicare [facility] MEDICARE [employer] [facility] MEDICARE [id number] 2018-Present [phone] [address] [place] [address] Medicare [id number] 2015 Private Health Insurance [id number] 2015 Private Health Insurance [facility] xxxxxxxxx 2015-Present [address] [place] [address] xxxxxxxxx [id number] 1959 Unknown [id number] [id number] 1959 Unknown [id number]. [id number] 1959 Unknown [id number]. [id number] 1959 Unknown [id number]. 2.182 1959 Unknown [id number] [id number]. 2.182 1959 Unknown [id number]. 2.182 1959 Unknown [id number] [id number]. 2.182 1959 Unknown [id number]. 2.182 1959 Unknown [id number] [id number]. 2.182 1959 Unknown [id number]. 2.182 1959 Unknown [id number] 2.182 Social History Date Type Detail Facility Start: 07-27-2019 End: 04-08-2023 Tobacco smoking status NHIS Never smoker [facility] Work Phone: Start: 07-27-2019 End: 08-26-2019 Alcohol intake No [facility] [place] Start: 04-17-2017 Alcohol Comment social [facility]ne [facility]- [place] Start: 1960 Sex Assigned At Not on file M rashmi [facility] [place] Start: 04-23-2020 End: 04-08-2023 Alcohol intake Current non-drinker of alcohol (finding) Willard [place] MTM[facility] Exposure to SARS-CoV -2 (event) Unable to assess [employer] [place] Start: 08-07-2020 End: 04-08-2023 Tobacco use and exposure Never used Auth0 [facility] Start: 08-16-2021 End: 09-15-2021 Exposure to SARS-CoV-2 (event) Not sure [facility] [place] [facility] Start: 05-14-2020 End: 09-30-2020 History SDOH Alcohol Frequency 1 [facility] Start: 09-30-2020 History SDOH Alcohol Std Drinks 98 [facility] Start: 05-14-2020 End: 09-03-2020 History SDOH Social Connections Phone 4 [facility] Start: 05-14-2020 End: 01-28-2021 History SDOH Social Connections Membership 2 [facility] Start: 05-14-2020 History SDOH Social Connections Living 8 [facility] Start: 05-14-2020 History SDOH Physica l Activity DPW 0 [facility] Start: 05-14-2020 History SDOH Stress 5 [facility] Start: 05-13-2020 Education 12 [facility] Medical Equipment Procedure Code Equipment Code Equipment Origin al Text Equipment Identifier Dates [id number] Start: 10-31-2012 Goals Date Patient Goal Desired Activity /State Progress note 04-08-2023 Note Date & Type Note Facility 04-08-2023 Note HNO ID: [id number] Author: Pearl Mckinley APRN.CJ Service: ? Author Type: Nurse Practitioner Type: Progress Notes Filed: 04/08/2023 1:42 PM Note Text: [facility] SERVICE DATE: 04/06/2023 SERVICE TIME: 2:32 PM REFERRING PROVIDER: No referring provider defined for this encounter. PCP: No primary care provider on file. HISTORY CHIEF COMPLAINT: Patient presents with: Kidney Stones: Pt presents today for ED follow up visit HPI: 63 year old male presents today for stone consult- Patient underwent surgical treatment of bilateral large kidney stones. 11/2016 dilation of ureteral meatus, ureteroscopy, stone manipulation left side. 05/2018 URS, left side 07/15: PCNL , right side Went to [place] ED on WEDNESDAY FOR ANURIA, BLADDER SCAN COMPLETED AND WAS NOT ALARMING per AND SENT HOME. BACK TO ED 2 DAYS LATER FOR ANURIA AND GROSS HEMATURIA NOTED IN BRIEF. HAD A CT SCAN AND INDICATED A SMALL STONE LEFT KIDNEY , RECD A CALL THAT URINE X WAS +FOR E COLI, STARTED ON CIPRO , LAST DOSE YESTERDAY. URINE WAS STRONG, MILKY, BUT IMPROVED SINCE CIPRO WEARS A BRIEF FOR LEAKS BUT USES A URINAL TO VOID BC HE DOESN'T WALK DUE TO ULCER ON LEFT HEEL ON O2 4L NC AND IN WC HERE TODAY FOR SOME CONSTIPATION, HASNT HAD A BOWEL MOVEMENT IN 2 DAYS Pt currently reports terrible discomfort due to constipation Body mass index is 39.03 kg/m?. PAST MEDICAL HISTORY Diagnosis Date Anxiety BPH (benign prostatic hyperplasia) Dr. Agosto CAD (coronary artery disease) Dr. Jones CKD (chronic kidney disease) stage 3, GFR 30-59 ml/min ([facility]) Dr. Hendrix Decreased breath sounds at right lung base Dr. Mackey Diabetic polyneuropathy associated with type 2 diabetes mellitus ([facility]) Diabetic retinopathy associated with type 2 diabetes mellitus ([facility]) bilateral retinopathy; Dr. Ozuna Elevated hemidiaphragm Dr. 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 Ozuna Hip arthritis History of gout History of MRSA infection History of myocardial infarction Dr. Jones Hyperlipidemia Hypertension Dr. Hendrix Insulin dependent type 2 diabetes mellitus, uncontrolled MDD (major depressive disorder) Microalbuminuria Obesity MARY on CPAP Dr. Mackey Osteoarthritis of multiple joints PAD (peripheral artery disease) ([facility]) peripheral artery stents (2 in R leg); Dr. Jones Personal history of colonic polyps colonoscopy 07/16, repeat 5 yrs Personal history of kidney stones Dr. Agosto PVD (peripheral vascular disease) ([facility]) Dr. Jones Requires supplemental oxygen S/P PTCA (percutaneous transluminal coronary angioplasty) x 2; Dr. Jones S/P thyroidectomy unsure if partial thyroidectomy Toe amputee ([facility]) Dr. Senior Tremor of both hands Unstable gait PAST SURGICAL HISTORY Procedure Laterality Date CARDIAC CATH 08/15 (Dr. Hart at [facility])--no additional stents placed (med management) CARDIAC CATH patent stents, normal LVF (11/15/17, ) PAST SURGICAL HISTORY OF cataracts PAST SURGICAL HISTORY OF toe amputations PAST SURGICAL HISTORY OF Cardiac stents x 2 PAST SURGICAL HISTORY OF Left ankle PAST SURGICAL HISTORY OF removal of kidney stones PAST SURGICAL HISTORY OF vitrectomy PAST SURGICAL HISTORY OF cystoscopy w/stent removal x 2 THYROIDECTOMY TOTAL/COMPLETE benign mass, partial thyroidectomy Social History Tobacco Use Smoking status: Never Smokeless tobacco: Never Substance Use Topics Alcohol use: No Drug use: No Current Outpatient Medications on File Prior to Visit Medication Sig insulin detemir U-100 (LEVEMIR FLEXPEN) 100 unit/mL (3 mL) injection pen Inject 28 units at bedtime. spironolactone (ALDACTONE) 50 mg tablet Take 1 tablet by mouth once daily. ON HOLD. busPIRone (BUSPAR) 7.5 mg tablet Take 1 tablet by mouth three times daily. Insulin [place], Disposable, (BD ULTRAFINE III MINI PEN) 31 gauge x 3/16 1 Each four times daily. Diaper,Brief, Adult,Disposable (BRIEFS EXTRA LARGE) Depends briefs. pregabalin (LYRICA) 75 mg capsule TAKE 1 CAPSULE BY MOUTH TWICE DAILY. isosorbide mononitrate ER (IMDUR) 30 mg 24 hr tablet Take 1 tablet by mouth once daily. flash glucose sensor (FREESTYLE PAT 14 DAY SENSOR) kit Change sensor every 14 days. Dx: E11.9, on insulin hydrALAZINE (APRESOLINE) 10 mg tablet Take 2 tablets by mouth three times daily. losartan (COZAAR) 100 mg tablet Take 1 tablet by mouth once daily. atorvastatin (LIPITOR) 80 mg tablet Take 1 tablet by mouth once daily. pantoprazole DR (PROTONIX) 20 mg tablet Take 1 tablet by mouth once daily. finasteride (PROSCAR) 5 mg tablet Take 1 tablet by mouth once daily. traZODone (DESYREL) 100 mg tablet Take 1 tablet by mouth daily at bedtime. clopidogrel (PLAVIX) 75 mg tablet Take 1 tablet by mouth once daily. FLUoxetine HCl (PROZAC) 4 (more content not included)... [facility] Instructions 04-08-2023 Patient Instructions Note Date & Type Note Facility 04-08-2023 Instructions Pearl Mckinley APRN.[facility] - 04/08/2023 1:29 PM EDT General Stone Prevention Guidelines: FLUIDS- #1 reasons why stones form- Need to ensure you are getting proper hydration. Goal is 80-100 oz./day, that's 2.5-3 L/day PROPER FRUITS & VEGETABLES - CITRUS in particular: erica, limes, melons, oranges and tomatoes-these 5 fruits can help increase one's citrate level. Citrate balances the urine pH and can help dissolve certain stone forming crystals SODIUM / SALT- low sodium diet is hurt to living a healthy lifestyle and it can reduce your risk for stone development. Goal is less than 2000 mg of sodium daily CALCIUM - very important for good bone, muscle and tissue health We recommend at least 2-3 servings of calcium rich foods daily. Restricting calcium is not advised especially for kidney stone patients Constipation Constipation can be an unpleasant topic to talk about. Most people have experienced constipation at some point in their life. Though typically not serious, constipation can be both painful and frustrating. What is constipation? Constipation occurs when bowel movements become difficult or less frequent than normal. The frequency or time between bowel movements ranges widely from person to person. Some people have bowel movements several times a day while others only one to two times a week. Going longer than three days without a bowel movement is too long. After three days, the stool becomes harder and more difficult to pass. What causes constipation? Constipation is most commonly caused by inadequate fiber in the diet or a disruption of the regular diet or routine. Chronic constipation may be due to a poor diet, dehydration, certain medications (such as antidepressants, strong pain medications), stress, or the pressure of other activities that force you to ignore the urge to empty the bowel. Various medical conditions can also cause or aggravate constipation. Some of the more common medical conditions that cause constipation include endocrine problems, such as decreased function of the thyroid gland or diabetes. Colorectal cancer is another medical condition that can cause constipation but it usually also accompanied by other symptoms including blood in the stool and weight loss. Common causes of constipation include the following: A diet low in fiber Not drinking enough water Lack of exercise Travel or another change in routine Eating large amounts of milk or cheese Stress or resisting the urge to have a bowel movement Medications strong pain medicines such as narcotics antidepressants antacids containing calcium or aluminum such as TUMS iron pills allergy medications such as antihistamines certain blood pressure medicines psychiatric medications herbal supplements Irritable bowel syndrome (IBS) Neurologic disorders including spinal cord injury and multiple sclerosis (MS) Slow transit of the colon How is constipation evaluated? Most people do not need extensive testing to evaluate constipation. Only a small number of patients with constipation have a serious underlying medical problem (such as poor function of the thyroid gland, diabetes, or colorectal cancer). If you have constipation that has persisted for more than two weeks, you should see a doctor to determine if you need further evaluation. For a patient who has colorectal cancer, early detection and treatment may be life-saving. Standard evaluation for constipation includes performing blood tests and examining the colon by colonoscopy, particularly for patients older than 50 years.. Other tests include colonic transit studies (time it takes for stools to move through the colon) and anal manometry (measures pressure and muscle function in the rectum and anus). Most patients with serious constipation, and without any obvious illness to explain their symptoms, suffer from one of two problems: Colonic inertia (also called lazy colon): a condition in which the colon contracts poorly and retains stool. This can be determined by colon transit studies. Obstructed defecation: a condition in which the colon contracts normally, but the patient is unable to expel stool from the rectum. This condition can be confirmed by a test called anal manometry. How can I prevent constipation? Eat a well-balanced diet with plenty of fiber. Good sources of fiber are fruits, vegetables, legumes, and whole-grain breads and cereals. Fiber and water help the colon pass stool. Most of the fiber in fruits is found in the skins, such as in apples. Fruits with seeds you can eat, like strawberries, have the most fiber. Bran is a great source of fiber: eat bran cereal or add bran cereal to other foods, like soup and yogurt. Drink eight 8-ounce glasses of water a day. (Note: Milk can cause constipation in some people.) Liquids that contain caffeine, such as coffee and soft drinks, have a dehydrating effect and may need to be avoided until your bowel habits return to normal. Exercise regularly. Move your bowels when you feel the urge. How is constipation treated? Drink two to four extra glasses of water a day. Try warm liquids, especially in the morning. Add fruits and vegetables to your diet. Eat prunes and/or bran cereal. Add supplemental fiber to your diet (there are several types, such as Metamucil, Citrucel, and Benefiber). If needed, use a very mild stool softener or laxative (such as colace [docusate] or Milk of Magnesia). Do not use laxatives for more than two weeks without calling your health care provider, as laxative overuse can aggravate your symptoms. When should I call my health care provider? Call your health care provider if: Constipation is a new problem for you. You have blood in your stool. You are losing weight unintentionally. You have severe pain with bowel movements. Your constipation has lasted more than three weeks. Where can I learn more? National Digestive Diseases Information Clearinghouse2 Information [place], [place] [address] www.digestive.niddk.nih.gov email: References: National Digestive Diseases Information Clearinghouse. Constipation. digestive.niddk.nih.gov Accessed September 02, 2012. [employer]. Understanding Constipation. www.gastro.org. Accessed September 02, 2012. Copyright 9231-7972 The [facility]. All rights reserved This information is provided by the [facility] and is not intended to replace the medical advice of your doctor or health care provider. Please consult your health care provider for advice about a specific medical condition. For additional health information, please contact the Center for Consumer Health Information at the [facility] or toll-free extension [phone]. If you prefer, you may visit [email or web address] or [email or web address]. This document was last reviewed on: 2012 index #4059 documented in this encounter [facility] History of Present illness Narrative 04-08-2023 Pearl Mckinley APRN.CNP - 04/08/2023 1:00 PM EDT Note Date & Type Note Facility 04-08-2023 History of Presen t illness Narrative [facility] SERVICE DATE: 04/06/2023 SERVICE TIME: 2:32 PM REFERRING PROVIDER: No referring provider defined for this encounter. PCP: No primary care provider on file. HISTORY CHIEF COMPLAINT: Patient presents with: Kidney Stones: Pt presents today for ED follow up visit HPI: 63 year old male presents today for stone consult- Patient underwent surgical treatment of bilateral large kidney stones. 11/2016 dilation of ureteral meatus, ureteroscopy, stone manipulation left side. 05/2018 URS, left side 07/15: PCNL , right side Went to [place] ED on WEDNESDAY FOR ANURIA, BLADDER SCAN COMPLETED AND WAS NOT ALARMING per AND SENT HOME. BACK TO ED 2 DAYS LATER FOR ANURIA AND GROSS HEMATURIA NOTED IN BRIEF. HAD A CT SCAN AND INDICATED A SMALL STONE LEFT KIDNEY , RECD A CALL THAT URINE X WAS +FOR E COLI, STARTED ON CIPRO , LAST DOSE YESTERDAY. URINE WAS STRONG, MILKY, BUT IMPROVED SINCE CIPRO WEARS A BRIEF FOR LEAKS BUT USES A URINAL TO VOID BC HE DOESN'T WALK DUE TO ULCER ON LEFT HEEL ON O2 4L NC AND IN WC HERE TODAY FOR SOME CONSTIPATION, HASNT HAD A BOWEL MOVEMENT IN 2 DAYS Pt currently reports terrible discomfort due to constipation Body mass index is 39.03 kg/m . PAST MEDICAL HISTORY Diagnosis Date Anxiety BPH (benign prostatic hyperplasia) Dr. Agosto CAD (coronary artery disease) Dr. Jones CKD (chronic kidney disease) stage 3, GFR 30-59 ml/min ([facility]) Dr. Hendrix Decreased breath sounds at right lung base Dr. Mackey Diabetic polyneuropathy associated with type 2 diabetes mellitus ([facility]) Diabetic retinopathy associated with type 2 diabetes mellitus ([facility]) bilateral retinopathy; Dr. Ozuna Elevated hemidiaphragm Dr. 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 Ozuna Hip arthritis History of gout History of MRSA infection History of myocardial infarction Dr. Jones Hyperlipidemia Hypertension Dr. Hendrix Insulin dependent type 2 diabetes mellitus, uncontrolled MDD (major depressive disorder) Microalbuminuria Obesity MARY on CPAP Dr. Mackey Osteoarthritis of multiple joints PAD (peripheral artery disease) ([facility]) peripheral artery stents (2 in R leg); Dr. Jones Personal history of colonic polyps colonoscopy 07/16, repeat 5 yrs Personal history of kidney stones Dr. Agosto PVD (peripheral vascular disease) ([facility]) Dr. Jones Requires supplemental oxygen S/P PTCA (percutaneous transluminal coronary angioplasty) x 2; Dr. Jones S/P thyroidectomy unsure if partial thyroidectomy Toe amputee ([facility]) Dr. Senior Tremor of both hands Unstable gait PAST SURGICAL HISTORY Procedure Laterality Date CARDIAC CATH 08/15 (Dr. Hart at [facility])--no additional stents placed (med management) CARDIAC CATH patent stents, normal LVF (11/15/17, [place]) PAST SURGICAL HISTORY OF cataracts PAST SURGICAL HISTORY OF toe amputations PAST SURGICAL HISTORY OF Cardiac stents x 2 PAST SURGICAL HISTORY OF Left ankle PAST SURGICAL HISTORY OF removal of kidney stones PAST SURGICAL HISTORY OF vitrectomy PAST SURGICAL HISTORY OF cystoscopy w/stent removal x 2 THYROIDECTOMY TOTAL/COMPLETE benign mass, partial thyroidectomy Social History Tobacco Use Smoking status: Never Smokeless tobacco: Never Substance Use Topics Alcohol use: No Drug use: No Current Outpatient Medications on File Prior to Visit Medication Sig insulin detemir U-100 (LEVEMIR FLEXPEN) 100 unit/mL (3 mL) injection pen Inject 28 units at bedtime. spironolactone (ALDACTONE) 50 mg tablet Take 1 tablet by mouth once daily. ON HOLD. busPIRone (BUSPAR) 7.5 mg tablet Take 1 tablet by mouth three times daily. Insulin [place], Disposable, (BD ULTRAFINE III MINI PEN) 31 gauge x 3/16 1 Each four times daily. Diaper,Brief, Adult,Disposable (BRIEFS EXTRA LARGE) Depends briefs. pregabalin (LYRICA) 75 mg capsule TAKE 1 CAPSULE BY MOUTH TWICE DAILY. isosorbide mononitrate ER (IMDUR) 30 mg 24 hr tablet Take 1 tablet by mouth once daily. flash glucose sensor (FREESTYLE PAT 14 DAY SENSOR) kit Change sensor every 14 days. Dx: E11.9, on insulin hydrALAZINE (APRESOLINE) 10 mg tablet Take 2 tablets by mouth three times daily. losartan (COZAAR) 100 mg tablet Take 1 tablet by mouth once daily. atorvastatin (LIPITOR) 80 mg tablet Take 1 tablet by mouth once daily. pantoprazole DR (PROTONIX) 20 mg tablet Take 1 tablet by mouth once daily. finasteride (PROSCAR) 5 mg tablet Take 1 tablet by mouth once daily. traZODone (DESYREL) 100 mg tablet Take 1 tablet by mouth daily at bedtime. clopidogrel (PLAVIX) 75 mg tablet Take 1 tablet by mouth once daily. FLUoxetine HCl (PROZAC) 40 mg capsule Take 1 capsule by mouth once daily. FLUoxetine (PROZAC) 20 mg capsule Take with 40 mg cap to equal 60 mg daily. carvedilol (COREG) 25 mg tablet Take 1 tablet by mouth twice daily. furosemide (LASIX) 40 mg tablet Take 1 tablet by mouth once daily. insulin lispro (HUMALOG KWIKPEN INSULIN) 100 unit/mL Inject Humalog 8 units with meals + SS#2. Up to 50 units daily. nitroglycerin sublingual (NITROSTAT) 0.4 mg SL tablet Dissolve 1 tablet under the tongue as needed. exenatide microspheres (BYDUREON) 2 mg/0.65 mL pnij Inject 0.65 mL subcutaneously one time a week. aspirin, enteric coated (ASPIRIN, ENTERIC COATED) 81 mg EC tablet Take 1 tablet by mouth once daily. No current facility-administered medications on file prior to visit. REVIEW OF SYSTEMS GENERAL: obese, in w/c RESPIRATORY: O2 NC 4L AND MARY W/ CPAP CARDIOVASCULAR: CAD, HX OF [place], HLD, HTN, PAD/PVD GI: HX GOUT, COLON POLYPS, : STONES, BPH MUSCULOSKELETAL: REDUCED AMBULATION SKIN: SKIN ULCER OF LEFT HEEL PSYCH: ANXIETY HEMATOLOGY/LYMPHOLOGY: Negative for prolonged bleeding, bruising easily or swollen nodes ENDOCRINE: CKD, DM2 NEURO: No history of headaches, syncope, paralysis, seizures or tremors PHYSICAL EXAM: BP 155/83 (BP Site: Left Arm, BP Position: Sitting, BP Cuff Size: Large Adult) Pulse (!) 53 Ht 177.8 cm (5' 10 ) Wt 123.4 kg (272 lb) SpO2 95% BMI 39.03 kg/m GENERAL: well appearing, alert, in no acute distress HEENT: No conjunctival injection, pupils equal and Moist mucous membranes PULMONARY: breathing comfortably on room air , no coughing noted, and no wheezing noted URINE ANALYSIS: NO SAMPLE STONE COMPOSITION: CAOX /URIC ACID 24 HR URINE RESULTS: Component Latest Ref Rng & Units 05/06/2017 Calcium, 24 Hr Urine 100 - 300 mg/24 hr 236.0 Citric Acid, 24 Hr Urine 320 - 940 mg/24hrs 738 Creatinine 24 hr Ur 1.0 - 2.0 g/24 hr 1.829 Oxalate, 24 Hr Urine 7 - 44 mg/24hrs 34 Sodium, 24 hr Urine 40 - 220 mmol/24hr 171 Uric Acid, 24 Hr Urine 250 - 750 mg/24hr 708.0 Period hr 24 Urine Volume 24 hour mL 2,017 Collection Start Date Collection Start Time 800 Collection End Date Collection End Time 800 METABOLIC WORK UP: Component Latest Ref Rng & Units 12/02/2011 03/29/2012 11/01/2020 Uric Acid 3.0 - 8.0 mg/dL 9.5 (H) 9.0 (H) Vitamin D 25 Hydroxy 31.0 - 80.0 ng/mL 15.7 (L) PTH, Intact 15 - 65 pg/mL 26 IMAGING? AWAITING MILY REPORTS MEDICAL DECISION MAKING: IMPRESSION: (Diagnostic Possibilities) ASSESSMENT/PLAN: 1. Constipation, unspecified constipation type - ICD9: 564.00, ICD10: K59.00 (primary diagnosis) - INCREASE FLUIDS - INCREASE FIBER - DOCUSATE SODIUM 100 MG CAPSULE - POLYETHYLENE GLYCOL 3350 17 GRAM ORAL POWDER PACKET 2. BPH with obstruction/lower urinary tract symptoms - ICD9: 600.01, 599.69, ICD10: N40.1, N13.8 - CONTINUE W/ PROSCAR - TAMSULOSIN 0.4 MG CAPSULE - MAY NEED MALE UROL CONSULT 3. Renal stone - ICD9: 592.0, ICD10: N20.0 DISCUSSED General stone prevention guidelines- proper daytime & night time hydration. We recommend 2.5-3 L of fluid daily. Low sodium diet, < 2000 mg/d. Good fruit & vegetable intake- 5 a day for good citrate intake. Adequate calcium intake, 2-3 servings daily. Pearl Mckinley APRN.CNP Electronically signed FOLLOW UP: PLEASE FORWARD MILY REPORTS TO OUR OFFICE FOR REVIEW documented in this encounter [facility] Note 05-01-2022 Telephone Encounter - Sheila Bush Ma - 05/01/2022 4:26 PM EDTTelephone Encounter - ABBY Siddiqi - 05/01/2022 3:42 PM EDT Note Date & Type Note Facility 05-01-2022 Miscellaneous Notes Patient last seen in office 12/24/20. Note faxed to number provided. [facility] from [facility] calling concerning Rea Linda today. : 1960 Allergies: Allopurinol, Influenza Virus Vaccines, and Pneumovax 23 [Pneumococcal 23-Ronit Ps Vaccine] Reason for call: Requesting to have patients most recent office visit notes faxed to: [phone] Patient last appointment: 01/20/2022 ABBY Siddiqi documented in this encounter [facility] Note 09-02-2021 Telephone Encounter - Colleen Garza RN - 09/02/2021 12:40 PM EDT Note Date & Type Note Facility 09-02-2021 Miscellaneous Notes ROBERT Hardwick from [facility] called Patient rolled out of bed today, hit his head on the side table No injury, patient is fine PT is required to report a fall Nothing is required from provider at this time documented in this encounter [facility] Progress note 05-01-2021 Note Date & Type Note Facility 05-01-2021 Note HNO ID: [id number] Author: Lalo Vail APRN.RN ON SITE Service: ? Author Type: Nurse Practitioner Type: Progress Notes Filed: 05/01/2021 5:55 PM Note Text: Subjective Rea Linda is a 61 year old male who presents With right ankle pain this is been ongoing for 1 year.He reported that he noticed this after a fall in which his right ankle was sprained this occurred in June of last year. Patient's pain is 8 out of 10 stabbing aching and ankle he feels that it is radiating up to his hip. Pain is sharp stabbing burning aching with intermittent numbness and tingling. On his bilateral feet he has amputations due to diabetes with numbness tingling burning neuropathy. Recent interventions have been MRI of the right ankle drainage of a medial ankle cyst. Patient has worn a boot no immobilized his ankle and purchased new orthotics without relief physical therapy has not been beneficial for his hip back or ankle pain. Patient endorses numbness tingling, he denies fever chills. He denies incontinence of bowel or bladder. Patient reports his left leg to feel weaker. The history is provided by the patient. Review of Systems Eyes: Negative for blurred vision and double vision. Respiratory: Negative for shortness of breath. Cardiovascular: Negative for chest pain and leg swelling. Gastrointestinal: Negative for constipation, diarrhea, nausea and vomiting. Skin: Negative for itching. Neurological: Negative for dizziness, tingling, weakness and headaches. Endo/Heme/Allergies: Bruises/bleeds easily. Psychiatric/Behavioral: Positive for depression. Negative for substance abuse and suicidal ideas. The patient is nervous/anxious. PAST MEDICAL HISTORY Diagnosis Date - Anxiety - BPH (benign prostatic hyperplasia) Dr. Agosto - CAD (coronary artery disease) Dr. Jones - CKD (chronic kidney disease) stage 3, GFR 30-59 ml/min ([facility]) Dr. Hendrix - Decreased breath sounds at right lung base Dr. Mackey - Diabetic polyneuropathy associated with type 2 diabetes mellitus ([facility]) - Diabetic retinopathy associated with type 2 diabetes mellitus ([facility]) bilateral retinopathy; Dr. Ozuna - Elevated hemidiaphragm Dr. 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 Ozuna - Hip arthritis - History of gout - History of MRSA infection - History of myocardial infarction has had STEMI and NSTEMI; Dr. Joens - Hyperlipidemia - Hypertension Dr. Hendrix - Insulin dependent type 2 diabetes mellitus, uncontrolled ([facility]) Dr. Phipps - MDD (major depressive disorder) - Microalbuminuria Dr. Phipps - Obesity - MARY on CPAP Dr. Mackey - Osteoarthritis of multiple joints - PAD (peripheral artery disease) ([facility]) peripheral artery stents (2 in R leg); Dr. Jones - Personal history of colonic polyps colonoscopy 07/16, repeat 5 yrs - Personal history of kidney stones Dr. Agosto - PVD (peripheral vascular disease) ([facility]) Dr. Jones - S/P PTCA (percutaneous transluminal coronary angioplasty) x 2; Dr. Jones - S/P thyroidectomy unsure if partial thyroidectomy - Toe amputee ([facility]) Dr. Testrake - Tremor of both hands - Unstable gait PAST SURGICAL HISTORY Procedure Laterality Date - CARDIAC CATH 08/15 (Dr. Hart at [facility])--no additional stents placed (med management) - CARDIAC CATH patent stents, normal LVF (11/15/17, [place]) - PAST SURGICAL HISTORY OF cataracts - PAST SURGICAL HISTORY OF toe amputations - PAST SURGICAL HISTORY OF Cardiac stents x 2 - PAST SURGICAL HISTORY OF Left ankle - PAST SURGICAL HISTORY OF removal of kidney stones - PAST SURGICAL HISTORY OF vitrectomy - PAST SURGICAL HISTORY OF cystoscopy w/stent removal x 2 - THYROIDECTOMY benign mass, partial thyroidectomy FAMILY HISTORY Problem Relation Age of Onset - Diabetes Mother - Heart Mother - other (CVA) Father Social History Tobacco Use - Smoking status: Never Smoker - Smokeless tobacco: Never Used Substance Use Topics - Alcohol use: No - Drug use: No Current Meds ALPRAZolam (XANAX) 0.5 mg tablet Take 1 tablet by mouth twice daily for 30 days. busPIRone (BUSPAR) 7.5 mg tablet Take 1 tablet by mouth three times daily. lidocaine (LMX) 4 % cream Apply to affected area three times daily as needed. hydrALAZINE (APRESOLINE) 10 mg tablet Take 2 tablets by mouth three times daily. losartan (COZAAR) 100 mg tablet Take 1 tablet by mouth once daily. atorvastatin (LIPITOR) 80 mg tablet Take 1 tablet by mouth once daily. pantoprazole DR (PROTONIX) 20 mg tablet Take 1 tablet by mouth once daily. finasteride (PROSCAR) 5 mg tablet Take 1 tablet by mouth once daily. traZODone (DESYREL) 100 mg tablet Take 1 tablet by mouth daily at bedtime. clopidogrel (PLAVIX) 75 mg tablet Take 1 tablet by mouth once daily. FLUoxetine HCl (PROZAC) 40 mg capsule Take 1 capsule by mouth once daily. FLUoxetine (PROZAC) 20 mg capsule Take with 40 mg cap to (more content not included)... [facility] History of Past illness Narrative 01-24-2021 Note Date & Type Note Facility documented as of this encounter (statuses as of 02/20/2022) [facility] History of Past illness Narrative 01-24-2021 Note Date & Type Note Facility documented as of this encounter (statuses as of 05/01/2022) [facility] History of Past illness Narrative 01-24-2021 Note Date & Type Note Facility documented as of this encounter (statuses as of 04/08/2023) [facility] Evaluation note Note Date & Type Note Facility documented in this encounter [facility] Summary Purpose Family History No Family History Records FoundNo Family History Records FoundNo Family History Records FoundNo Family History Records FoundNo Family History Records Found Advance Directives No Advanced Directives Records FoundDocuments on File Type Date Recorded 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 Advance Directives and Living Will Power of Forming Roll Operator Latest Code Status on File Code Status Date Activated Date Inactivated Comments Full Code 11/27/2018 6:36 AM 11/29/2018 8:49 PM Full Code 11/15/2017 3:43 PM 11/15/2017 7:49 PM Full Code 11/14/2017 11:42 PM 11/15/2017 3:43 PM Full Code 08/11/2017 2:27 PM 08/12/2017 3:15 AM Full Code 08/11/2017 10:14 AM 08/11/2017 2:27 PM Latest Code Status on File Code Status Date Activated Date Inactivated Comments Full Code 08/21/2019 12:20 AM 08/24/2019 7:49 PM Full Code 11/27/2018 6:36 AM 11/29/2018 8:49 PM Documents on File Type Date Recorded 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 Advance Directives and Living Will Power of Forming Roll Operator Latest Code Status on File Code Status Date Activated Date Inactivated Comments Full Code 08/21/2019 12:20 AM 08/24/2019 7:49 PM Full Code 11/27/2018 6:36 AM 11/29/2018 8:49 PM Full Code 11/15/2017 3:43 PM 11/15/2017 7:49 PM Full Code 11/14/2017 11:42 PM 11/15/2017 3:43 PM Full Code 08/11/2017 2:27 PM 08/12/2017 3:15 AM Documents on File Type Date Recorded 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 ACP-Advance Directive ACP-Power of Forming Roll Operator Documents on File Type Date Recorded 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 Return to if any symptoms worsen or new symptoms develop. * Attachments The following attachments cannot be sent through Care Everywhere. * Hypertension: General Info ([place]) * Diabetes: Type 2: General Info ([place]) documented in this encounter* Instructions* Jamal Veliz PA-C - 08/13/[address] Hernandez, and primary care docotor. Use your walker. Return to ER if any symptoms worsen or new symptoms develop. * Attachments The following attachments cannot be sent through Care Everywhere. * Leg Pain ([place]) documented in this encounter* Attachments The following attachments cannot be sent through Care Everywhere. * Pneumonia ([place]) documented in this encounter Assessments Diagnosis Sciatica of right side- Primary Sciatica Diagnosis Essential hypertension- Primary Unspecified essential hypertension Type 2 diabetes mellitus with hyperglycemia, with long-term current use of insulin (HCC) Anxiety state Anxiety state, unspecified Left upper quadrant pain Abdominal pain, left upper quadrant Diagnosis Lung nodule Solitary pulmonary nodule Diagnosis PAD (peripheral artery disease) (HCC) Unspecified disorders of arteries and arterioles Claudication (HCC) Peripheral vascular disease, unspecified Diagnosis Lumbar radiculopathy Thoracic or lumbosacral neuritis or radiculitis, unspecified Pain of right hip joint Diagnosis Right leg pain Pain in limb Diagnosis Left ankle pain, unspecified chronicity Diagnosis Pneumonia due to organism- Primary Pneumonia due to other specified organism Reason for Referral Status Reason Specialty Diagnoses / Procedures Re ferred By Contact Referred To Contact Closed Radiology Diagnoses Lung nodule Procedures CT CHEST WO CONTRAST PA BREATHING CAPACITY TEST EVAL BRONCHOSPASM EVAL AFTER BRONCHODIALTOR Ken Mackey MD [address] [place] [address] Status Reason Specialty Diagnoses / Procedures Referre d By Contact Referred To Contact Open Radiology Diagnoses PAD (peripheral artery disease) (HCC) Claudication ([facility]) Procedures US DUP LOWER ART/BYPASS GRAFTS BILATERAL COMPLETE Bobo Jones Luan DO [address] [place] [address] Additional Source Comments (unrecognized sect ion and content) No Status Records FoundNo Status Records FoundNo Status Records FoundNo Status Records FoundNo Status Records Found INFORMATION SOURCE (unrecogn ized section and content) DATE CREATED AUTHOR AUTHOR'S ORGANIZ ATION 07/24/2018 [facility] DATE CREATED AUTHOR AUTHOR'S ORGANIZ ATION 08/14/2020 [facility] DATE CREATED AUTHOR AUTHOR'S ORGANIZ ATION 06/04/2021 [facility] DATE CREATED AUTHOR AUTHOR'S ORGANIZ ATION 04/10/2023 [facility] Reason for Visit (unrecogniz ed section and content) Reason Comments Hypertension sent by [facility] nurse Hyperglycemia Status Reason Specialty Diagnoses / Procedures Re ferred By Contact Referred To Contact Closed Radiology Diagnoses Lung nodule Procedures CT CHEST WO CONTRAST PA BREATHING CAPACITY TEST EVAL BRONCHOSPASM EVAL AFTER BRONCHODIALTOR Ken Mackey MD [address] [place] [address] Status Reason Specialty Diagnoses / Procedures Referred By Contact Referred To Contact Closed Sleep Center Diagnoses Obstructive sleep apnea Procedures Baseline Diagnostic Sleep Study PA POLYSOM 6/>YRS SLEEP 4/> ADDL CIRO ATTND Ken Mackey MD [address] [place] [address] [facility] [address] [place] [address] Status Reason Specialty Diagnoses / Procedures Referre d By Contact Referred To Contact Open Radiology Diagnoses PAD (peripheral artery disease) (HCC) Claudication ([facility]CC) Procedures US DUP LOWER ART/BYPASS GRAFTS BILATERAL COMPLETE Bobo Jones DO [address] [place] [address] Reason Comments Leg Pain and swelling on righ t side x 1 week[address] Went to see Dr Jones on wednesday and had outpatient US of right leg done 08/10/20 but no results yet. Pain and swelling getting worse Reason Comments Ankle Pain left foot pain for t he last few days without mechanism of injury Reason Comments Back Pain left sided back pain that radiates to the front. cough productive of green phlegm. pain with deep breathing. pt worried he may have pneumonia Reason Comments Patient Update Reason Comments Forms Reason Comments Kidney Stones Pt presents today fo r ED follow up visit Source Comments (unrecognize d section and content) In the event this informatio n is protected by the Federal Confidentiality of Alcohol and Drug Abuse Patient Records regulations: The Federal rules restrict any use of the information to criminally investigate or prosecute any alcohol or drug abuse patient.[facility] event this information is protected by the Federal Confidentiality of Alcohol and Drug Abuse Patient Records regulations: The Federal rules restrict any use of the information to criminally investigate or prosecute any alcohol or drug abuse patient.[facility] the event this information is protected by the Federal Confidentiality of Alcohol and Drug Abuse Patient Records regulations: The Federal rules restrict any use of the information to criminally investigate or prosecute any alcohol or drug abuse patient.[facility] Care Teams (unrecognized sec tion and content) Criminal Justice Instructor Relationship Specialty [place] [address] [place], [place] [id number] PCP - General Family Practice 11/25/11 FOR RECORDS PERTAINING TO PATIENTS WHO ARE OR HAVE BEEN ENROLLED IN A CHEMICAL DEPENDENCY/SUBSTANCEABUSE PROGRAM, SOME INFORMATION MAY BE OMITTED. This clinical summary was aggregated from multiple sources. Caution should be exercised in using it in the provision of clinical care. This summary normalizes information from multiple sources, and as a consequence, information in this document may materially change the coding, format and clinical context of patient data. In addition, data may be omitted in some cases. CLINICAL DECISIONS SHOULD BE BASED ON THE PRIMARY CLINICAL RECORDS. [employer] provides no warranty or guarantee of the accuracy or completeness of information in this document.
[2023-11-20 11:26] LABS: Bedside Glucose 66 mg/dL (74-106)
[2023-11-20 11:27] LABS: Bedside Glucose 65 mg/dL (74-106)
[2023-11-20 11:27] LABS: Bedside Glucose 77 mg/dL (74-106)
[2023-11-20 11:34] LABS: Absolute Lymphocyte Count 1.27 X10^3/uL (0.83-4.51); Absolute Neutrophil Count 6.7 X10^3/uL (2.0-7.7); Basophil# 0.05 X10^3/uL; Basophil% 0.5 % (0-1); Eosinophil# 0.02 X10^3/uL; Eosinophils% 0.2 % (0-5); Hematocrit 30.6 % (40-54); Hemoglobin 9.7 g/dL (13.0-16.5); Lymphocyte # 1.27 X10^3/ul (0.83-4.51); Lymphocyte % 13.5 % (19-41); Mean Corp Hgb Conc 31.7 g/dL (32-36); Mean Corpuscular Hgb 26.7 pg (27.0-32.0); Mean Corpuscular Volume 84.3 fL (80-94); Monocyte% 13.9 % (0-10); NRBC Flagged by Analyzer 0 % (0-5); Neutrophil # 6.72 X10^3/uL (2.7-7.7); Neutrophil % 71.7 % (47-70); Platelet Count 200 K/mm3 (150-450); RBC Distribution Width CV 14.6 % (11.6-14.6); RBC Distribution Width SD 45.2 fl (35.1-43.9); Red Blood Count 3.63 M/mm3 (4.6-6.2); White Blood Count 9.4 K/mm3 (4.4-11.0)
[2023-11-20] MEDS: Dextrose 5%/0.9% NaCl 1,000 ML 150 ML IV ×2 (11:45→16:25)
--- NOTE | 2023-11-20 12:31 | NURSING ---
this RN contacted his to let her know he is being admitted. She is aware and plans to visit soon.
--- NOTE | 2023-11-20 12:44 | ED.RN ---
correction never called report. called them per dr morrissey. covid postive yesterday. correction also stated that pt BGL was running in the 30-40's throughout the night and they gave him oj. nurse stated they held his insulin but gave him glimepride at 2230.
--- OUTSIDE RECORDS SUMMARY | 2023-11-20 12:46 | XMS RPT_ITS | CCD ---
Author Name Unknown Address [id number] [place] [address] Organization [facility] Care Team Providers Care Perfume Maker Name Role Phone CHARLES RIZO Unavailable Unavailable TOM PENDLETON Unavailable Unavailable KOMITNATALI, CHARLES Unavailable Unavailable MAXINE WEEMS Unavailable Unavailable ERIK, CHARLES Unavailable Unavailable MAXINE WEEMS Unavailable Unavailable BOBO JONES Unavailable Unavailable DONAVAN, WAHIB Unavailable Unavailable DONAVAN, WAHIB Unavailable Unavailable DONAVAN, WAHIB Unavailable Unavailable DONAVAN, WAHIB Unavailable Unavailable LIBERTIN III, EYAL S Unavailable Unavail able Charles Rizo Primary Care Provider Charles Rizo Primary Care Provider [phone] CHARLES RIZO Primary Care Unavailable SKYE GO Admitting Unavailab SKYE Mena Attending Unavailab STEF Sanchez Consulting Unavailable KOMITAU, CHARLES Primary Care Unavailable ROXANNE VALENCIA~[id number] Attending Unavaila ble ERIK, CHARLES Primary Care Unavailable ERIK, CHARLES Primary Care [...] Drug Allergy 2 Nausea And Vomiting, Vomiting [facility] Repository (5 sources) pneumococcal vaccine; Translations: [PNEUMOCOCCAL 23-RONIT PS VACCINE] Drug Allergy 4 Vomiting [facility] Repository (5 sources) INFLUENZA VIRUS VACCINES; Translations: [INFLUENZA VIRUS VACCINES] Propensity to adverse reactions to drug (disorder) 4 Intolerance [facility] Repository (1 source) OPIOIDS - MORPHINE ANALOGUES; Translations: [OPIOIDS - MORPHINE ANALOGUES] Propensity to adverse reactions to drug (disorder) 7 AOF [facility] Repository (10 sources) Influenza Vaccines Propensity to adverse reactions to drug 6 [place], [place] (10 sources) Morphine And Related Propensity to adverse reactions to drug 7 Nausea And Vomiting [place] (10 sources) Pneumococcal Vac Polyvalent Propensity to adverse reactions to drug 6 [place] Medications Current Medications Medication Drug Class(es) [...] 13:12-0400 Body height 177.8 cm Pearl Mckinley APRN.RPG PROGRAMMER ANALYST Work Phone: [facility] 04-08-2023 13:12-0400 Body weight 123.38 kg Pearl Mckinley APRN.RPG PROGRAMMER ANALYST Work Phone: [facility] 04-08-2023 13:12-0400 Diastolic blood pressure 83 mm[Hg] Pearl Mckinley PRESSURE VESSEL INSPECTOR.RPG PROGRAMMER ANALYST Work Phone: [facility] 04-08-2023 13:12-0400 Heart rate 53 /min Pearl Mckinley APRN.RPG PROGRAMMER ANALYST Work Phone: [facility] 04-08-2023 13:12-0400 SaO2% (BldA) [Mass fraction] 95 % Pearl Mckinley APRN.RPG PROGRAMMER ANALYST Work Phone: [facility] 04-08-2023 13:12-0400 Systolic blood pressure 155 mm[Hg] Pearl Potterro PRESSURE VESSEL INSPECTOR.RPG PROGRAMMER ANALYST Work Phone: [facility] 08-13-2020 18:59-0400 BP Diastolic 81 mm[Hg] [facility] [place] 08-13-2020 18:59-0400 BP Systolic 153 mm[Hg] [facility] [place] 08-13-2020 18:59-0400 Pulse (Heart Rate) 73 /min [facility], [place] 08-13-2020 18:59-0400 Pulse Oximetry 99 % [place], [place] 08-13-2020 18:59-0400 Respiratory Rate 18 /min [facility] 04-23-2020 12:02-0400 BMI (Body Mass Index) 35.87 kg/m2 [place] [address] [place], [place] 04-23-2020 12:02-0400 Body weight 113.[address] , [place] 04-23-2020 12:02-0400 BP Diastolic 69 mm[Hg] [address] , [place] 04-23-2020 12:02-0400 BP Systolic 110 mm[Hg] [address] , [place] 04-23-2020 12:02-0400 Height 177.[address] , [place] 04-23-2020 12:02-0400 Pulse (Heart Rate) 89 /min [address], [place] 04-23-2020 12:02-0400 Respiratory Rate 18 /min [address], [place] 04-12-2020 17:19-0400 BP Diastolic 94 mm[Hg] [facility] [place] 04-12-2020 17:19-0400 BP Systolic 173 mm[Hg] [facility] [place] 04-12-2020 17:18-0400 BMI (Body Mass Index) 35.87 kg/m2 [facility] [place] 04-12-2020 17:18-0400 Body Temperature 97.81 [degF] [facility] [place] 04-12-2020 17:18-0400 Body weight 113.4 kg [facility] [place] 04-12-2020 17:18-0400 Height 177.8 cm [facility] [place] 04-12-2020 17:18-0400 Pulse (Heart Rate) 79 /min [facility] [place] 04-12-2020 17:18-0400 Pulse Oximetry 94 % [facility] [place] 04-12-2020 17:18-0400 Respiratory Rate 18 /min [facility] [place] 10-14-2019 11:30-0500 BP Diastolic 90 mm[Hg] [facility] [place] 10-14-2019 11:30-0500 BP Systolic 157 mm[Hg] [facility] [place] 10-14-2019 11:30-0500 Pulse (Heart Rate) 71 /min [facility] [place] 10-14-2019 11:30-0500 Pulse Oximetry 94 % [facility] [place] 10-14-2019 11:30-0500 Respiratory Rate 20 /min [facility] 10-14-2019 10:21-0500 BMI (Body Mass Index) 35.87 kg/m2 [facility], [place] 10-14-2019 10:21-0500 Body Temperature 97.39 [degF] [facility] [place] [place] 10-14-2019 10:21-0500 Body weight 113.4 kg [facility] [place] 10-14-2019 10:21-0500 [facility] [place] 09-05-2019 20:00-0400 BP Diastolic 96 mm[Hg] [facility] [place] 09-05-2019 20:00-0400 BP Systolic 141 mm[Hg] [facility] , [place] 09-05-2019 20:00-0400 Pulse (Heart Rate) 88 /min [facility], [place] 09-05-2019 20:00-0400 Pulse Oximetry 96 % [facility] [place] 09-05-2019 19:35-0400 Respiratory Rate 19 /min [facility] [place] 09-05-2019 16:35-0400 BMI (Body Mass Index) 36.16 kg/m2 [facility] [place] 09-05-2019 16:35-0400 Body Temperature 97.7 [degF] [facility] [place] 09-05-2019 16:35-0400 Body weight 114.31 kg [facility] [place] 09-05-2019 16:35-0400 Height 177.8 cm [facility] [place] 07-27-2019 15:38-0400 BMI (Body Mass Index) 35.87 kg/m2 [facility] [place], [place] 07-27-2019 15:38-0400 Body Temperature 97.39 [degF] [place] 07-27-2019 15:38-0400 Body weight 113.4 kg [place] 07-27-2019 15:38-0400 BP Diastolic 89 mm[Hg] [place] 07-27-2019 15:38-0400 BP Systolic 158 mm[Hg] [place], [place] 07-27-2019 15:38-0400 Height 177.8 cm [place] 07-27-2019 15:38-0400 Pulse (Heart Rate) 74 /min [facility] [place] 07-27-2019 15:38-0400 Pulse Oximetry 96 % [place], [place] 07-27-2019 15:38-0400 Respiratory Rate 20 /min [place] Encounters Encounter Date Encounter Type Care Provider Facility Start: 04-08-2023 End: 04-08-2023 ambulatory PEARL MCKINLEY Facility:[facility] Start: 04-08-2023 End: 04-08-2023 Patient encounter procedure [...] 08-13-2020 Radex foot complete minimum 3 views aJmal Veliz Work Phone: Start: 08-13-2020 Radiologic examinati [...] CHARLES HAND Start: 08-21-2019 IP CONSULT TO [facility] CHARLES RIZO Start: 08-21-2019 DIET [...] lds w/i&r CHARLES RIZO Start: 07-07-2018 Colonoscopy Charles hand MD Work Phone: Start: 11-13-2017 Chest [...] CANCER SCREENING DISCUSSION PROSTATE CANCER SCREENING DISCUSSION [facility] Start: 07-07-2023 Colonoscopy COLONOSCOPY [facility] Start: 07-07-2023 COLORECTAL CANCER SCREENING COLORECTAL CANCER SCREENING [facility] Start: 05-26-2022 ANNUAL PCP TEAM CHRONIC DISEASE VISIT ANNUAL PCP TEAM CHRONIC DISEASE VISIT [facility] Start: 05-26-2022 BP CONTROLLED (<130/80) BP CONTROLLED (<130/80) [facility] Start: 01-21-2022 SERUM CREATININE SERUM CREATININE [facility] Start: 11-14-2021 HEMOGLOBIN/HEMATOCRIT HEMOGLOBIN/HEMATOCRIT [facility] Start: 11-14-2021 Hepatitis B screening URINE ALBUMIN:CREATININE RATIO [facility] Start: 11-14-2021 Hepatitis B surface antibody level LDL CHOLESTEROL [facility] Start: 09-03-2021 3 comp foot exam completed DIABETIC FOOT EXAM [facility] Start: 08-20-2021 COVID-19 VACCINE (3 - Booster for Pfizer series) COVID-19 VACCINE (3 - Booster for Pfizer series) [facility] Start: 07-21-2021 Hemoglobin A1c/Hemoglobin.total in Blood HBA1C [facility] Start: 07-16-2021 Hepatitis C antibody, confirmatory test DILATED RETINAL EXAM [facility] Start: 05-15-2021 COVID-19 VACCINE (3 - Booster for Pfizer series) COVID-19 VACCINE (3 - Booster for Pfizer series) [facility] Start: 02-12-2021 End: 02-12-2021 Office Visit 02/12/2021 Office Visit Pulmonology Ken Mackey MD [address] [facility] [address] [place] [address] [id number] [facility] Start: 11-29-2020 Urine microalbumin profile DTAP,TDAP,TD (2 - Td or Tdap) [facility] Start: 09-05-2020 Creatinine measurement Creatinine monitoring [employer] [place] Start: 09-05-2020 Creatinine monitoring Creatinine monitoring [employer] [facility] [place] , [place] Start: 09-05-2020 Potassium monitoring Potassium monitoring [facility] [place], [place] Start: 09-05-2020 End: 09-05-2020 Office Visit 09/05/2020 Office Visit Pain Management Alecia Dow MD [address] [facility] [address] [address] [phone] [facility] Start: 08-26-2020 Creatinine monitoring Creatinine monitoring [facility] [place] , [place] Start: 08-26-2020 Potassium monitoring Potassium monitoring [facility] [place] [place] Start: 08-16-2020 End: 08-16-2020 Virtual Visit 08/16/2020 Virtual Visit Cardiology Bobo Jones DO [address] [place] [address] [phone] [facility] Start: 08-15-2020 End: 08-15-2020 Evaluation 08/15/2020 Evaluation Physical Therapy Kobe Hurt, PT [address] [place] [address] [phone] [facility] Start: 08-12-2020 End: 08-12-2020 Office Visit 08/12/2020 Office Visit Pulmonology Ken Mackey MD [address] [place] [address] [phone] [facility] Start: 07-19-2020 End: 07-19-2020 Office Visit 07/19/2020 Office Visit Cardiology Bobo Jones DO [address] [place] [address] [phone] [facility] Start: 05-07-2020 End: 05-07-2020 Office Visit 05/07/2020 Office Visit Pulmonology Ken Mackey MD [address] [place] [address] [phone] [facility] Start: 04-23-2020 End: 04-23-[facility] Start: 02-19-2020 Creatinine monitoring Creatinine monitoring [facility] [place] , [place] Start: 02-19-2020 Potassium monitoring Potassium monitoring [facility] [place] [place] Start: 12-22-2019 End: 12-22-2019 Office Visit 12/22/2019 Office Visit Cardiology Bobo Jones DO [address] [place] [address] [phone] [facility] Start: 11-27-2019 A1C test (Diabetic or Prediabetic) A1C test (Diabetic or Prediabetic) [place] Start: 11-27-2019 HbA1c (Bld) [Mass fraction] A1C test (Diabetic or Prediabetic) [place] Start: 10-23-2019 End: 10-23-2019 Office Visit 10/23/2019 Office Visit Pulmonology Ken Mackey MD [address] [facility] [address] [place] [address] [phone] [facility] Start: 09-12-2019 End: 09-12-2019 Office Visit 09/12/2019 Office Visit Cardiology oBbo Jones DO [address] [place] [address] [address] [place] [address] [phone] [facility] [place] Start: 06-18-2019 FECAL OCCULT BLOOD FECAL OCCULT BLOOD [facility] Start: 05-21-2019 Annual Wellness Visit (AWV) Annual Wellness Visit (AWV) [place] Start: 11-15-2018 Lipid panel Lipid screen [place] Start: 11-15-2018 Lipid screen Lipid screen [place] Start: 04-28-2013 Diabetic microalbuminuria test Diabetic microalbuminuria test [place] Start: 2009 Colon cancer screen colonoscopy Colon cancer screen colonoscopy [place], [place] Start: 2009 Screening for malignant neoplasm of colon Colon cancer screen colonoscopy [place], [place] Start: 2009 Shingles Vaccine (1 of 2) Shingles Vaccine (1 of 2) [place], [place] Start: 02-15-2004 COLOGUARD (FIT-DNA) COLOGUARD (FIT-DNA) [facility] Start: 02-15-[address] COLONOGRAPHY [facility] Start: 02-15-2004 SIGMOIDOSCOPY SIGMOIDOSCOPY [facility] Start: 1978 DTaP/Tdap/Td vaccine (1 - Tdap) DTaP/Tdap/Td vaccine (1 - Tdap) [place] Start: 1977 BP CONTROLLED (<130/80) BP CONTROLLED (<130/80) [facility] Start: 1974 HIV screen HIV screen [place], [place] Start: 1974 HIV screening HIV screen [place] Start: 1970 DTaP/Tdap/Td vaccine (1 - Tdap) DTaP/Tdap/Td vaccine (1 - Tdap) [place] Start: 1969 [object Object] Diabetic foot exam [place] Start: 1969 Diabetic foot examination Diabetic foot exam [place] Start: 1969 Diabetic retinal exam Diabetic retinal exam [place], [place] End: 09-05-2019 Bacteria identified Cx Nom (U) Urine Culture Microbiology STAT Once for 1 Occurrences starting 09/05/2019 until 09/05/2019 [place] Immunizations Immunization Date Immunization Notes Care Provider Fa cili 03-20-2021 COVID-19 vaccine, ag e 12+ yr (PFIZER-BIONTECH - PURPLE TOP) Charles Rizo MD Work Phone: [facility] 03-01-2021 COVID-19 vaccine, ag e 12+ yr (PFIZER-BIONTECH - PURPLE TOP) Charles Rizo MD Work Phone: [facility] 01-08-2021 zoster vaccine recombinant Charles Rizo MD Work Phone: [facility] 09-14-2020 zoster vaccine recombinant Charles Rizo MD Work Phone: [facility] Payers Date Payer Category Payer Medicaid [facility] MEDICAID MYC ARE [facility] MEDICAID [id number] 2018-Present [phone] [address] [place] [address] Medicaid [id number] 2018 Medicare [id number] 2018 Medicare [facility] MEDICARE MYC ARE [facility] MEDICARE [id number] 2018-Present [phone] [address] [place] [address] Medicare [id number] 2015 Private Health Insurance [id number] 2015 Private Health Insurance [facility] xxxxxxxxx 2015-Present [address] [place] [address] xxxxxxxxx [id number] 1959 Unknown [id number]. 2.182 1959 Unknown [id number] [id number]. 2.182 1959 Unknown [id number] [id number]. 2.182 1959 Unknown [id number] [id number]. 2.182 1959 Unknown [id number] [id number]. 2.182 1959 Unknown [id number] [id number]. 2.182 1959 Unknown [id number] [id number]. 2.182 1959 Unknown [id number] [id number]. 2.182 1959 Unknown [id number] [id number]. 2.182 1959 Unknown [id number] [id number]. 2.182 1959 Unknown [id number] 2.182 Social History Date Type Detail Facility Start: 07-27-2019 End: 04-08-2023 Tobacco smoking status NHIS Never smoker [facility] Work Phone: Start: 07-27-2019 End: 08-26-2019 Alcohol intake No [employer] [employer] [place] Start: 04-17-2017 Alcohol Comment social [facility]- [place] Start: 1960 Sex Assigned At Not on file M rashmi [employer] [place] Start: 04-23-2020 End: 04-08-2023 Alcohol intake Current non-drinker of alcohol (finding) [facility] [employer] [facility] Exposure to SARS-CoV -2 (event) Unable to assess [employer] [place] Start: 08-07-2020 End: 04-08-2023 Tobacco use and exposure Never used [employer] [place] Start: 08-16-2021 End: 09-15-2021 Exposure to SARS-CoV-2 (event) Not sure [employer] [place] Start: 05-14-2020 End: 09-30-2020 History SDOH Alcohol Frequency 1 [facility] Start: 09-30-2020 History SDOH Alcohol Std Drinks 98 [facility] Start: 05-14-2020 End: 09-03-2020 History SDOH Social Connections Phone 4 [facility] Start: 05-14-2020 End: 01-28-2021 History SDOH Social Connections Membership 2 [facility] Start: 05-14-2020 History SDOH Social Connections Living 8 [facility] Start: 05-14-2020 History SDOH Physica l Activity DPW 0 [facility] Start: 05-14-2020 History SDOH Stress 5 [facility] Start: 05-13-2020 Education 12 [facility] Medical Equipment Procedure Code Equipment Code Equipment Origin al Text Equipment Identifier Dates [id number] Start: 10-31-2012 Goals Date Patient Goal Desired Activity /State Progress note 04-08-2023 Note Date & Type Note Facility 04-08-2023 Note HNO ID: [id number] Author: Pearl Mckinley APRN.CJ Service: ? Author Type: Nurse Practitioner Type: Progress Notes Filed: 04/08/2023 1:42 PM Note Text: [facility] SERV[facility] DATE: 04/06/2023 [...] 07/15: PCNL , right side Went to [place] ED on WEDNESDAY FOR ANURIA, BLADDER SCAN [...] kidney disease) stage 3, GFR 30-59 ml/min ([facility]) Dr. Hendrix Decreased breath sounds at right lung base Dr. Mackey Diabetic polyneuropathy associated with type 2 diabetes mellitus ([facility]) Diabetic retinopathy associated with type 2 diabetes mellitus ([facility]) bilateral retinopathy; Dr. Ozuna Elevated hemidiaphragm Dr. 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 Ozuna Hip arthritis History of gout History of MRSA infection History of myocardial infarction Dr. Jones Hyperlipidemia Hypertension Dr. Hendrix Insulin dependent type 2 diabetes mellitus, uncontrolled MDD (major depressive disorder) Microalbuminuria Obesity MARY on CPAP Dr. Mackey Osteoarthritis of multiple joints PAD (peripheral artery disease) ([facility]) peripheral artery stents (2 in R leg); Dr. Jones Personal history of colonic polyps colonoscopy 07/16, repeat 5 yrs Personal history of kidney stones Dr. Agosto PVD (peripheral vascular disease) ([facility]) Dr. Jones Requires supplemental oxygen S/P PTCA (percutaneous transluminal coronary angioplasty) x 2; Dr. Jones S/P thyroidectomy unsure if partial thyroidectomy Toe amputee ([facility]) Dr. Senior Tremor of both hands Unstable gait PAST SURGICAL HISTORY Procedure Laterality Date CARDIAC CATH 08/15 (Dr. Hart at [facility]no additional stents placed (med management) CARDIAC CATH [...] tablet by mouth three times daily. Insulin Fortescue, Disposable, (BD ULTRAFINE III MINI PEN) 31 [...] HCl (PROZAC) 4 (more content not included)... [facility] Instructions 04-08-2023 Patient Instructions Note Date & Type Note Facility 04-08-2023 Instructions Pearl Mckinley APRN.[facility] - 04/08/2023 1:29 PM EDT General Stone [...] more? National Digestive Diseases Information Clearinghouse2 Information [place], [place] [address] www.digestive.niddk.nih.gov email: References: National Digestive Diseases Information Clearinghouse. Constipation. digestive.niddk.nih.gov Accessed September 02, 2012. [place] [employer]. Understanding Constipation. www.gastro.org. Accessed September 02, 2012. Copyright 8018-2267 [facility]. All rights reserved This information is provided by the [facility] and is not intended to replace the medical advice of your doctor or health care provider. Please consult your health care provider for advice about a specific medical condition. For additional health information, please contact the Center for Consumer Health Information at the [facility] or toll-free extension [phone]. If you prefer, you may visit [email or web address] or [email or web address]. This document was last reviewed on: 2012 index #[id number] documented in this encounter [facility] History of Present illness Narrative 04-08-2023 Pearl Mckinley APRN.CNP - 04/08/2023 1:00 PM EDT Note Date & Type Note Facility 04-08-2023 History of Presen t illness Narrative [facility] SERV[facility] DATE: 04/06/2023 [...] 07/15: PCNL , right side Went to [place] ED on WEDNESDAY FOR ANURIA, BLADDER SCAN [...] kidney disease) stage 3, GFR 30-59 ml/min ([facility]) Dr. Hendrix Decreased breath sounds at right lung base Dr. Mackey Diabetic polyneuropathy associated with type 2 diabetes mellitus ([facility]) Diabetic retinopathy associated with type 2 diabetes mellitus ([facility]) bilateral retinopathy; Dr. Ozuna Elevated hemidiaphragm Dr. 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 Ozuna Hip arthritis History of gout History of MRSA infection History of myocardial infarction Dr. Jones Hyperlipidemia Hypertension Dr. Hendrix Insulin dependent type 2 diabetes mellitus, uncontrolled MDD (major depressive disorder) Microalbuminuria Obesity MARY on CPAP Dr. Mackey Osteoarthritis of multiple joints PAD (peripheral artery disease) ([facility]) peripheral artery stents (2 in R leg); Dr. Jones Personal history of colonic polyps colonoscopy 07/16, repeat 5 yrs Personal history of kidney stones Dr. Agosto PVD (peripheral vascular disease) ([facility]) Dr. Jones Requires supplemental oxygen S/P PTCA (percutaneous transluminal coronary angioplasty) x 2; Dr. Jones S/P thyroidectomy unsure if partial thyroidectomy Toe amputee ([facility]) Dr. Senior Tremor of both hands Unstable gait PAST SURGICAL HISTORY Procedure Laterality Date CARDIAC CATH 08/15 (Dr[facility] Hart at [facility]no additional stents placed (med management) CARDIAC CATH [...] tablet by mouth three times daily. Insulin Fortescue, Disposable, (BD ULTRAFINE III MINI PEN) 31 [...] MARY W/ CPAP CARDIOVASCULAR: CAD, HX OF NH, HLD, HTN, PAD/PVD GI: HX GOUT, COLON [...] OFFICE FOR REVIEW documented in this encounter [facility] Note 05-01-2022 Telephone Encounter - Sheila Bush Ma - 05/01/2022 4:26 PM EDTTelephone Encounter - ABBY Siddiqi - 05/01/2022 3:42 PM EDT Note Date & Type Note Facility 05-01-2022 Miscellaneous Notes Patient last seen in office 12/24/20. Note faxed to number provided. [facility] from [facility] calling concerning Rea Linda today. : 1960 Allergies: Allopurinol, Influenza Virus Vaccines, and Pneumovax 23 [Pneumococcal 23-Ronit Ps Vaccine] Reason for call: Requesting to have patients most recent office visit notes faxed to: [phone] Patient last appointment: 01/20/2022 ABBY Siddiqi documented in this encounter [facility] Note 09-02-2021 Telephone Encounter - Colleen Garza RN - 09/02/2021 12:40 PM EDT Note Date & Type Note Facility 09-02-2021 Miscellaneous Notes ROBERT Hardwick from [facility] called Patient rolled out of bed today, hit his head on the side table No injury, patient is fine PT is required to report a fall Nothing is required from provider at this time documented in this encounter [facility] Progress note 05-01-2021 Note Date & Type Note Facility 05-01-2021 Note HNO ID: [id number] Author: Lalo Vail APRN.RPG PROGRAMMER ANALYST Service: ? Author Type: Nurse Practitioner Type: [...] kidney disease) stage 3, GFR 30-59 ml/min ([facility]) Dr. Hendrix - Decreased breath sounds at right lung base Dr. Mackey - Diabetic polyneuropathy associated with type 2 diabetes mellitus ([facility]) - Diabetic retinopathy associated with type 2 diabetes mellitus ([facility]) bilateral retinopathy; Dr. Ozuna - Elevated hemidiaphragm Dr. 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 Ozuna - Hip arthritis - History of gout - History of MRSA infection - History of myocardial infarction has had STEMI and NSTEMI; Dr. Jones - Hyperlipidemia - Hypertension Dr. Hendrix - Insulin dependent type 2 diabetes mellitus, uncontrolled ([facility]) Dr. Phipps - MDD (major depressive disorder) - Microalbuminuria Dr. Phipps - Obesity - MARY on CPAP Dr. Mackey - Osteoarthritis of multiple joints - PAD (peripheral artery disease) ([facility]) peripheral artery stents (2 in R leg); Dr. Jones - Personal history of colonic polyps colonoscopy 07/16, repeat 5 yrs - Personal history of kidney stones Dr. Agosto - PVD (peripheral vascular disease) ([facility]) Dr. Jones - S/P PTCA (percutaneous transluminal coronary angioplasty) x 2; Dr. Jones - S/P thyroidectomy unsure if partial thyroidectomy - Toe amputee ([facility]) Dr. Testrake - Tremor of both hands - Unstable gait PAST SURGICAL HISTORY Procedure Laterality Date - CARDIAC CATH 08/15 (Dr. Hart at [facility])--no additional stents placed (med management) - CARDIAC [...] mg cap to (more content not included)... [facility] History of Past illness Narrative 01-24-2021 Note Date & Type Note Facility documented as of this encounter (statuses as of 02/20/2022) [facility] History of Past illness Narrative 01-24-2021 Note Date & Type Note Facility documented as of this encounter (statuses as of 05/01/2022) [facility] History of Past illness Narrative 01-24-2021 Note Date & Type Note Facility documented as of this encounter (statuses as of 04/08/2023) [facility] Evaluation note Note Date & Type Note Facility documented in this encounter [facility] Summary Purpose Family History No Family History Records FoundNo Family History Records FoundNo Family History Records FoundNo Family History Records FoundNo Family History Records Found Advance Directives No Advanced Directives Records FoundDocuments on File Type Date Recorded Patient Gopherman Expl anation Advance Directives and Living Will Power of Manufactured Buildings Repairer Latest Code Status on File Code Status [...] Documents on File Type Date Recorded Patient Gopherman Expl anation Advance Directives and Living Will Power of Manufactured Buildings Repairer Latest Code Status on File Code Status Date Activated Date Inactivated Comments Full Code 08/21/2019 12:20 AM 08/24/2019 7:49 PM Full Code 11/27/2018 6:36 AM 11/29/2018 8:49 PM Full Code 11/15/2017 3:43 PM 11/15/2017 7:49 PM Full Code 11/14/2017 11:42 PM 11/15/2017 3:43 PM Full Code 08/11/2017 2:27 PM 08/12/2017 3:15 AM Documents on File Type Date Recorded Patient Gopherman Expl anation ACP-Advance Directive ACP-Power of Manufactured Buildings Repairer Documents on File Type Date Recorded Patient Gopherman Expl anation ACP-Advance Directive ACP-Power of Manufactured Buildings Repairer Documents on File Type Date Recorded Patient Gopherman Expl anation Advance Directive(s) 07/19/2018 6:23 PM Advance Directive(s) 07/14/2018 6:23 AM Advance Directive(s) 07/07/2018 7:18 AM Advance Directive(s) 06/28/2018 8:17 AM Advance Directive(s) 12/29/2016 8:10 AM Advance Directive(s) 12/10/2016 8:19 AM Discharge Instructions * Attachments The following attachments cannot be sent through Care Everywhere. * Sciatica ([place] Islander) documented in this encounter* Instructions* Jamal Veliz PA-C - 09/05/2019 Follow-up with critical care specialist and primary care doctor. Return to if any symptoms worsen or new symptoms develop. * Attachments The following attachments cannot be sent through Care Everywhere. * Hypertension: General Info ([place]) * Diabetes: Type 2: General Info ([place]) documented in this encounter* Instructions* Jamal Veliz PA-C - 08/13/[address] Hernandez, and primary care docotor. Use your walker. Return to ER if any symptoms worsen or new symptoms develop. * Attachments The following attachments cannot be sent through Care Everywhere. * Leg Pain ([place]) documented in this encounter* Attachments The following attachments cannot be sent through Care Everywhere. * Pneumonia ([place]) documented in this encounter Assessments Diagnosis Sciatica [...] Lung nodule Procedures CT CHEST WO CONTRAST WY BREATHING CAPACITY TEST EVAL BRONCHOSPASM EVAL AFTER BRONCHODIALTOR Ken Mackey MD [address] [place] [address] Status Reason Specialty Diagnoses / Procedures Referre d By Contact Referred To Contact Open Radiology Diagnoses PAD (peripheral artery disease) (HCC) Claudication ([facility]) Procedures US DUP LOWER ART/BYPASS GRAFTS BILATERAL COMPLETE Bobo Jones Luan DO [address] [place] [address] Additional Source Comments (unrecognized sect ion and content) No Status Records FoundNo Status Records FoundNo Status Records FoundNo Status Records FoundNo Status Records Found INFORMATION SOURCE (unrecogn ized section and content) DATE CREATED AUTHOR AUTHOR'S ORGANIZ ATION 07/24/2018 [facility] DATE CREATED AUTHOR AUTHOR'S ORGANIZ ATION 08/14/2020 [facility] DATE CREATED AUTHOR AUTHOR'S ORGANIZ ATION [facility]/20[facility] DATE CREATED AUTHOR AUTHOR'S ORGANIZ ATION 04/10/2023 [facility] Reason for Visit (unrecogniz ed section and content) Reason Comments Hypertension sent by [facility] nurse Hyperglycemia Status Reason Specialty Diagnoses / Procedures Re ferred By Contact Referred To Contact Closed Radiology Diagnoses Lung nodule Procedures CT CHEST WO CONTRAST WY BREATHING CAPACITY TEST EVAL BRONCHOSPASM EVAL AFTER BRONCHODIALTOR Ken Mackey MD [address] [facility] [address] [place] [address] Status Reason Specialty Diagnoses / Procedures Referred By Contact Referred To Contact Closed [facility] Diagnoses Obstructive sleep apnea Procedures Baseline Diagnostic Sleep Study WY POLYSOM 6/>YRS SLEEP 4/> ADDL CIRO ATTND Ken Mackey MD [address] [facility] [address] [place] [address] [facility] [address] [place] [address] Status Reason Specialty Diagnoses / Procedures Referre d By Contact Referred To Contact Open Radiology Diagnoses PAD (peripheral artery disease) (HCC) Claudication (HCC) Procedures US DUP LOWER ART/BYPASS GRAFTS BILATERAL COMPLETE Bobo Jones DO [address] [place] [address] Reason Comments Leg Pain and swelling on [...] or prosecute any alcohol or drug abuse patient.[facility] the event this information is protected by the Federal Confidentiality of Alcohol and Drug Abuse Patient Records regulations: The Federal rules restrict any use of the information to criminally investigate or prosecute any alcohol or drug abuse patient.[facility] the event this information is protected by the Federal Confidentiality of Alcohol and Drug Abuse Patient Records regulations: The Federal rules restrict any use of the information to criminally investigate or prosecute any alcohol or drug abuse patient.[facility] Care Teams (unrecognized sec tion and content) Perfume Maker Relationship Specialty [place] [address] [place], [place] [id number] PCP - General Family Practice 11/25/11 FOR [...] BE BASED ON THE PRIMARY CLINICAL RECORDS. [employer] provides no warranty or guarantee of the accuracy or completeness of information in this document.
--- NOTE | 2023-11-20 12:55 | PCM.HP.STD ---
HPI - General General Date of Admission: 11/20/23 HPI Narrative REA HANNA, is a 63 M who presents from the retirement for hypoglycemia. He states he just does not like the food there so he does not eat all that much and it sounds if they have continually been giving him his insulin leading to the hypoglycemia. In discussion with the ED physician, it does not appear that any aggressive treatments were done at the retirement to offset the hypoglycemia. In the ER he was given a regular diet as well as orange juice and dextrose and he had a transient response but still became hypoglycemic into the 60s and therefore was admitted. [facility] Medical History Acute osteomyelitis of left foot CELESTE (acute kidney injury) Ambulates with cane Amputation of one or more toes Anxiety and depression Arrhythmia Arthritis Aspiration pneumonia Atherosclerotic heart disease of [place] coronary artery without angina pectoris Back pain Back spasm Bilateral leg weakness Blind left eye Blister (nonthermal), left foot, initial encounter Bronchiectasis with (acute) exacerbation Cardiology follow-up encounter Chronic cough Chronic respiratory failure with hypoxia CKD (chronic kidney disease) COPD (chronic obstructive pulmonary disease) Coronary artery disease CPAP (continuous positive airway pressure) dependence Debility, unspecified Decubitus ulcer limited to breakdown of skin (stage 2) Depression Diabetes Diabetes mellitus Essential hypertension Gastric reflux GERD (gastroesophageal reflux disease) High cholesterol History of aspiration pneumonia History of coronary artery disease History of diabetes mellitus History of echocardiogram History of edema History of gout History of heart attack History of non-ST elevation myocardial infarction (NSTEMI) (08/2016) History of pain when walking History of steroid therapy Hx of type 2 diabetes mellitus Hyperglycemia due to type 2 diabetes mellitus Hypertension Insulin dependent diabetes mellitus Irregular heart beat Kidney stones Left ankle instability Leg pain, right Leukocytosis Low back pain Memory impairment Migraines Mood disorder Non healing left heel wound Non-pressure chronic ulcer of other part of left foot with necrosis of bone Non-smoker Noncompliance by declining intervention or support On home oxygen therapy Peripheral vascular disease, unspecified Peripheral vascular occlusive disease Pneumonia Prostate disease Pulmonary nodule, left Recurrent falls Respiratory failure with hypoxia Right ankle pain Right foot pain Shortness of breath on exertion Silent aspiration Sleep apnea Tremor Type 2 diabetes mellitus with diabetic polyneuropathy Type 2 diabetes mellitus with diabetic polyneuropathy Ulcer of left foot, limited to breakdown of skin Vision loss of left eye Wears glasses Wound of left lower extremity Home Medications gauze bandage 4 X 4 (Bordered Gauze) #14 ea 07/03/22 [Rx Last Taken Unknown] walker (Ultra-Light Rollator [facility]) #1 ea 07/21/22 [Rx Last Taken Unknown] pen needle, diabetic 33 gauge x /16 #200 ea 12/02/22 [Rx Last Taken Unknown] fluoxetine 20 mg capsule 20 mg PO DAILY ANXIETY 03/23/23 [History Last Taken 10/19/23] melatonin 3 mg tablet 3 mg PO QHS INSOMNIA 03/23/23 [History Last Taken 10/18/23] atorvastatin 80 mg tablet 80 mg PO QHS CHOLESTEROL 05/25/23 [History Last Taken 10/18/23] fluoxetine 40 mg capsule 40 mg PO DAILY ANXIETY 05/25/23 [History Last Taken 10/19/23] pantoprazole 40 mg tablet,delayed release 40 mg PO DAILY ACID REFLUX 05/25/23 [History Last Taken 10/19/23] trazodone 150 mg tablet 150 mg PO QHS INSOMNIA 05/25/23 [History Last Taken 10/18/23] Wheelchair #1 ea 07/23/23 [Rx Last Taken Unknown] Lift Chair #1 ea 08/06/23 [Rx Last Taken Unknown] bisacodyl 10 mg rectal suppository 10 mg MT DAILY PRN CONSTIPATION 08/28/23 [History Last Taken Unknown] amlodipine 10 mg tablet 10 mg PO BID BLOOD PRESSURE 10/19/23 [History Last Taken 10/19/23] ascorbic acid (vitamin C) 500 mg tablet 500 mg PO BID SUPPLEMENT 10/19/23 [History Last Taken 10/19/23] aspirin 81 mg tablet,delayed release (Ecotrin Low Strength) 81 mg PO DAILY HEART HEALTH 10/19/23 [History Last Taken 10/19/23] clopidogrel 75 mg tablet 75 mg PO QHS BLOOD THINNER 10/19/23 [History Last Taken 10/18/23] glimepiride 2 mg tablet 2 mg PO BID DIABETES 10/19/23 [History Last Taken 10/19/23] hydroxyzine HCl 25 mg tablet 50 mg PO QHS 10/19/23 [History Last Taken 10/18/23] hyoscyamine sulfate 0.125 mg tablet 0.125 mg PO Q4H PRN BLADDER 10/19/23 [History Last Taken Unknown] insulin detemir U-100 100 unit/mL (3 mL) subcutaneous pen (Levemir FlexPen) 20 unit subcut BID DIABETES 10/19/23 [History Last Taken 10/19/23] isosorbide mononitrate 30 mg tablet,extended release 24 hr 30 mg PO DAILY HEART 10/19/23 [History Last Taken 10/19/23] lorazepam 0.5 mg tablet 0.5 mg PO Q4H PRN ANXIETY/AGITATION 10/19/23 [History Last Taken Unknown] magnesium 250 mg tablet 250 mg PO DAILY SUPPLEMENT 10/19/23 [History Last Taken 10/19/23] metoclopramide HCl 5 mg tablet 5 mg PO TID INTESTINES 10/19/23 [History Last Taken 10/19/23] nitroglycerin 0.4 mg sublingual tablet 0.4 mg sublingual Q5M PRN CHEST PAIN 10/19/23 [History Last Taken Unknown] pregabalin 75 mg capsule 75 mg PO Q12H PRN PAIN 10/19/23 [History Last Taken Unknown] sennosides 8.6 mg-docusate sodium 50 mg tablet (Senna Plus) 1 tab-cap PO BID CONSTIPATION 10/19/23 [History Last Taken 10/19/23] tizanidine 2 mg tablet 2 mg PO Q8H PRN MUSCLE SPASMS 10/19/23 [History Last Taken Unknown] flash glucose sensor (FreeStyle Mago 14 Day Sensor kit) 10/20/23 [History Last Taken Unknown] oxycodone 5 mg tablet 5 mg PO Q6H PRN pain 3 days #12 tabs 10/25/23 [Rx Last Taken Unknown] vancomycin 1 gram/200 mL in dextrose 5 % intravenous piggyback 1,000 mg IV Q24H 37 days #7,400 mL 10/25/23 [Rx Last Taken Unknown] dextrose 40 % oral gel (Gluco Burst) 15 g PO Q15M PRN hypoglycemia 11/12/23 [History Last Taken Unknown] glucagon HCl 1 mg solution for injection (Glucagon (HCl) Emergency Kit) 1 mg IM Q15M PRN hypoglycemia 11/12/23 [History Last Taken Unknown] Allergy/AdvReac Type Severity Reaction Status Date / Time allopurinol AdvReac Vomiting Verified 11/20/23 08:55 Influenza Virus Vaccines AdvReac Vomiting Verified 11/20/23 08:55 pneumococcal vaccine AdvReac Vomiting Verified 11/20/23 08:55 Family History Mother Diabetes Heart disease CHF Father Heart disease [place]/CAD Myocardial infarction Surgical History H/O lithotripsy History of angioplasty of peripheral vessel (2016) History of angioplasty of peripheral vessel History of ankle surgery History of cardiac catheterization History of coronary artery stent placement (08/2016) History of coronary artery stent placement History of esophagogastroduodenoscopy (EGD) History of left heart catheterization (11/15/17) History of thyroid surgery Hx of lithotripsy Hx of surgery to heart and great vessels, presenting hazards to health Hx of surgical procedure Hx of thyroidectomy Hx of toe surgery Hx of toe surgery PEG (percutaneous endoscopic gastrostomy) status Social History household members: spouse housing: retirement Smoking Status: Never smoker alcohol intake: never substance use type: does not use ROS Constitutional Constitutional: Denies chills, fatigue, fever(s) or malaise Eyes Eyes: Denies blurry vision ENT HEENT: Denies headache(s) or nasal discharge Cardiovascular Cardiovascular: Denies chest pain, dyspnea on exertion or syncope Respiratory/Chest Respiratory/Chest: Reports cough; Denies shortness of breath at rest or shortness of breath with exertion Gastrointestinal Gastrointestinal: Denies constipation, diarrhea, nausea or vomiting Genitourinary Genitourinary: Denies dysuria Neurologic Neurologic: Denies focal weakness, numbness or tremor(s) Psychiatric Psychiatric: Denies anxiety or depression Vital Signs Vital Signs Vital Signs: 11/20/23 08:55 11/20/23 08:55 11/20/23 10:04 Temperature 99.0 F Temperature Source Temporal Pulse Rate 95 83 Respiratory Rate 18 20 H Respiratory Effort Normal Respiratory Pattern Normal Normal Blood Pressure 175/98 H Blood Pressure Mean 123 Pulse Ox 93 Oxygen Delivery Method Room Air 11/20/23 10:30 11/20/23 12:22 11/20/23 12:41 Temperature Temperature Source Pulse Rate 86 84 80 Respiratory Rate 17 17 16 Respiratory Effort Respiratory Pattern Blood Pressure 192/99 H 180/83 H 180/83 H Blood Pressure Mean 130 115 115 Pulse Ox 98 94 90 Oxygen Delivery Method Room Air Room Air Weight Weight: 257 lb 11.526 oz Body Mass Index (BMI) 36.9 Physical Exam Narrative General: Alert, Oriented x3, Cooperative, No apparent distress HEENT: Atraumatic, PERRLA, EOMI, Normocephalic Oral: Moist mucosa Neck: Supple, No JVD Lungs: Diminished, Normal air movement, rhonchi, No wheeze, No rales Cardiovascular: Regular rate, Regular Rhythm, Normal S1, Normal S2, No murmurs Abdomen: Soft, Non Tender, Non-Distended, No Hepato-splenomegaly Extremities: No edema, Capillary Refill Less than 3 Seconds Skin: Known left foot ulceration, currently dressed left foot is in a boot Musculoskeletal: No Tenderness to Palpation of Joints or Extremities Neurological: Cranial nerves II-XII grossly intact, Motor Exam 5/5 strength throughout, Sensory exam intact to light touch and pain Psych/Mental Status: Flat Results Lab / Micro Data 11/20/23 09:50 11/20/23 16:50 Labs: Laboratory Results - last 24 hr 11/20/23 08:58: POC Glucose 66 L 11/20/23 09:17: Sodium 140, Potassium 3.6, Chloride 105, Carbon Dioxide 34.0 H, Anion Gap 1 L, BUN 15, Creatinine 1.54 H, Estim Creat Clear Calc 50.04, Est GFR (MDRD) Af Amer 59 L, Est GFR (MDRD) Non-Af 49 L, BUN/Creatinine Ratio 9.7 L, Glucose 52 L, Calcium 8.7, Total Bilirubin 0.30, AST 25, ALT 18, Alkaline Phosphatase 96, Total Protein 6.5, Albumin 2.7 L, Globulin 3.8, Albumin/Globulin Ratio 0.7 L, Lipase 24 11/20/23 09:50: WBC 9.4, RBC 3.63 L, Hgb 9.7 L, Hct 30.6 L, MCV 84.3, MCH 26.7 L, MCHC 31.7 L, RDW Std Deviation 45.2 H, RDW Coeff of James 14.6, Plt Count 200, MPV 11.0, Immature Gran % (Auto) 0.200, Neut % (Auto) 71.7 H, Lymph % (Auto) 13.5 L, Roberts % (Auto) 13.9 H, Eos % (Auto) 0.2, Baso % (Auto) 0.5, Absolute Neuts (auto) 6.7, Absolute Lymphs (auto) 1.27, Nucleated RBC % 0 11/20/23 10:12: POC Glucose 77 11/20/23 11:06: POC Glucose 65 L Imagaing Radiology Impression Chest X-Ray 11/20/23 09:50 IMPRESSION: Decreased right basilar atelectasis or consolidation. Electronically Signed: Dulce Brand MD at 10:40 EST , Assessment & Plan Assessment/Plan (1) Diabetic hypoglycemia: PLAN: Plan 1. Failure to thrive with increasing weakness and inability to complete ADLs/chronic respiratory failure/DM2 with hyperglycemia/COVID-positive ? Continue with his baseline oxygen of 2 L at night ?Plan will be to return to SNF ? PT/OT ? Will hold his home insulin as well as oral medications ? Continue with D5 normal saline and monitor his blood sugars ? Accu-Cheks ACHS ? We will place him on a sliding scale insulin ? He did test positive for COVID at the retirement, has not significantly symptomatic at this time so we will not proceed with treatment 2. Chronic diastolic CHF/CAD/peripheral artery disease status post stent HTN/HLD ? Blood pressure stable, will monitor and make adjustments ? Resume his home medications 3. 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 Continue with IV vancomycin and outpatient follow-up with ID 4. GERD ? Stable ? Continue with PPI 5. Anxiety/depression ? Stable ? Continue with his home medications DVT: Heparin 75 minutes was spent on direct patient care, including documentation as well as chart review and collaboration with colleagues Charges/Coding Visit Charges Inpatient E&M: 84792 Init Hosp L3
[2023-11-20] MEDS: Heparin Injection (Vial) 5,000 UNIT/ML VIAL 5000 UNIT SC ×2 (13:55→21:08)
--- OUTSIDE RECORDS SUMMARY | 2023-11-20 15:10 | XMS RPT_ITS | CCD ---
Author Name Unknown Address [address] [place] [address] Organization [facility] Care Team Providers Care Mission Systems Engineer Name Role Phone CHARLES RIZO Unavailable Unavailable TOM PENDLETON Unavailable Unavailable KOMITNATALI, CHARLES Unavailable Unavailable MAXINE WEEMS Unavailable Unavailable ERIK, CHARLES Unavailable Unavailable MAXNIE WEEMS Unavailable Unavailable BOBO JONES Unavailable Unavailable DONAVAN, WAHIB Unavailable Unavailable DONAVAN, WAHIB Unavailable Unavailable DONAVAN, WAHIB Unavailable Unavailable DONAVAN, WAHIB Unavailable Unavailable LIBERTIN III, EYAL S Unavailable Unavail able Charles Rizo Primary Care Provider Charles Rizo Primary Care Provider [phone] CHARLES RIZO Primary Care Unavailable SKYE GO Admitting Unavailab SKYE Mena Attending Unavailab STEF Sanchez Consulting Unavailable KOMITAU, CHARLES Primary Care Unavailable ROXANNE VALENCIA~[id number] Attending Unavaila ble ERIK, CHARLES Primary Care [...] Drug Allergy 2 Nausea And Vomiting, Vomiting [facility] Repository (5 sources) pneumococcal vaccine; Translations: [PNEUMOCOCCAL 23-RONIT PS VACCINE] Drug Allergy 4 Vomiting [facility] Repository (5 sources) INFLUENZA VIRUS VACCINES; Translations: [INFLUENZA VIRUS VACCINES] Propensity to adverse reactions to drug (disorder) 4 Intolerance [facility] Repository (1 source) OPIOIDS - MORPHINE ANALOGUES; Translations: [OPIOIDS - MORPHINE ANALOGUES] Propensity to adverse reactions to drug (disorder) 7 AOF [facility] Repository (10 sources) Influenza Vaccines Propensity to adverse reactions to drug 6 [place] (10 sources) Morphine And Related Propensity to adverse reactions to drug 7 Nausea And Vomiting [place] (10 sources) Pneumococcal Vac Polyvalent Propensity to adverse reactions to drug 6 [place] Medications Current Medications Medication Drug Class(es) [...] 13:12-0400 Body height 177.8 cm Pearl Mckinley APRN.TARIFF EXPERT Work Phone: [facility] 04-08-2023 13:12-0400 Body weight 123.38 kg Pearl Mckinley APRN.TARIFF EXPERT Work Phone: [facility] 04-08-2023 13:12-0400 Diastolic blood pressure 83 mm[Hg] Pearl Mckinley SENIOR QUALITY ANALYST.TARIFF EXPERT Work Phone: [facility] 04-08-2023 13:12-0400 Heart rate 53 /min Pearl Mckinley APRN.TARIFF EXPERT Work Phone: [facility] 04-08-2023 13:12-0400 SaO2% (BldA) [Mass fraction] 95 % Pearl Mckinley APRN.TARIFF EXPERT Work Phone: [facility] 04-08-2023 13:12-0400 Systolic blood pressure 155 mm[Hg] Pearl Potterro SENIOR QUALITY ANALYST.TARIFF EXPERT Work Phone: [facility] 08-13-2020 18:59-0400 BP Diastolic 81 mm[Hg] [facility] , [place] 08-13-2020 18:59-0400 BP Systolic 153 mm[Hg] [facility] , [place] 08-13-2020 18:59-0400 Pulse (Heart Rate) 73 /min [facility], [place] 08-13-2020 18:59-0400 Pulse Oximetry 99 % [place], [place] 08-13-2020 18:59-0400 Respiratory Rate 18 /min [facility], [place] 04-23-2020 12:02-0400 BMI (Body Mass Index) 35.87 kg/m2 [place] [address] [place], [place] 04-23-2020 12:02-0400 Body weight 113.[address] , [place] 04-23-2020 12:02-0400 BP Diastolic 69 mm[Hg] [address] , [place] 04-23-2020 12:02-0400 BP Systolic 110 mm[Hg] [address] , [place] 04-23-2020 12:02-0400 Height 177.[address] , [place] 04-23-2020 12:02-0400 Pulse (Heart Rate) 89 /min [address], [place] 04-23-2020 12:02-0400 Respiratory Rate 18 /min [address], [place] 04-12-2020 17:19-0400 BP Diastolic 94 mm[Hg] [facility] [place] 04-12-2020 17:19-0400 BP Systolic 173 mm[Hg] [facility] [place] 04-12-2020 17:18-0400 BMI (Body Mass Index) 35.87 kg/m2 [facility] [place] 04-12-2020 17:18-0400 Body Temperature 97.81 [degF] [facility] [place] 04-12-2020 17:18-0400 Body weight 113.4 kg [facility] [place] 04-12-2020 17:18-0400 Height 177.8 cm [facility] [place] 04-12-2020 17:18-0400 Pulse (Heart Rate) 79 /min [facility] [place] 04-12-2020 17:18-0400 Pulse Oximetry 94 % [facility] [place] 04-12-2020 17:18-0400 Respiratory Rate 18 /min [facility] [place] 10-14-2019 11:30-0500 BP Diastolic 90 mm[Hg] [facility] [place] 10-14-2019 11:30-0500 BP Systolic 157 mm[Hg] [facility] [place] 10-14-2019 11:30-0500 Pulse (Heart Rate) 71 /min [facility] [place] 10-14-2019 11:30-0500 Pulse Oximetry 94 % [facility] [place] 10-14-2019 11:30-0500 Respiratory Rate 20 /min [facility] [place] 10-14-2019 10:21-0500 BMI (Body Mass Index) 35.87 kg/m2 [facility] [place] 10-14-2019 10:21-0500 Body Temperature 97.39 [degF] [facility] [place] 10-14-2019 10:21-0500 Body weight 113.4 kg [facility] [place] 10-14-2019 10:21-0500 Height 177.8 cm [facility] [place] 09-05-2019 20:00-0400 BP Diastolic 96 mm[Hg] [facility] [place] 09-05-2019 20:00-0400 BP Systolic 141 mm[Hg] [facility] , [place] 09-05-2019 20:00-0400 Pulse (Heart Rate) 88 /min [facility], [place] 09-05-2019 20:00-0400 Pulse Oximetry 96 % [facility] [place] 09-05-2019 19:35-0400 Respiratory Rate 19 /min [facility] [place] 09-05-2019 16:35-0400 BMI (Body Mass Index) 36.16 kg/m2 [facility] [place] 09-05-2019 16:35-0400 Body Temperature 97.7 [degF] [facility] [place] 09-05-2019 16:35-0400 Body weight 114.31 kg [facility] [place] 09-05-2019 16:35-0400 Height 177.8 cm [facility] [place] 07-27-2019 15:38-0400 BMI (Body Mass Index) 35.87 kg/m2 [facility] [place], [place] 07-27-2019 15:38-0400 Body Temperature 97.39 [degF] [place] 07-27-2019 15:38-0400 Body weight 113.4 kg [place] 07-27-2019 15:38-0400 BP Diastolic 89 mm[Hg] [place] 07-27-2019 15:38-0400 BP Systolic 158 mm[Hg] [place] 07-27-2019 15:38-0400 Height 177.8 cm [place] 07-27-2019 15:38-0400 Pulse (Heart Rate) 74 /min [facility] [place] 07-27-2019 15:38-0400 Pulse Oximetry 96 % [place] 07-27-2019 15:38-0400 Respiratory Rate 20 /min [place] Encounters Encounter Date Encounter Type Care Provider Facility Start: 04-08-2023 End: 04-08-2023 ambulatory PEARL MCKINLEY Facility:[facility] Start: 04-08-2023 End: 04-08-2023 Patient encounter procedure [...] Start: 08-26-2019 Comprehensive metabo lic panel CHARLES IRZO Start: 08-26-2019 Prothrombin time CHARLES RIZO Start: [...] AND TREAT CHARLES RIZO Start: 08-23-2019 CPAP CHARLESILCO ARANDAMI TAU Start: 08-23-2019 Gluc bld gluc [...] CARE CHARLES HAND Start: 08-21-2019 TURN PATIENT CHARLSE HAND Start: 08-21-2019 IP [facility] CHARLES RIZO Start: 08-21-2019 DIET [...] CANCER SCREENING DISCUSSION PROSTATE CANCER SCREENING DISCUSSION [facility] Start: 07-07-2023 Colonoscopy COLONOSCOPY [facility] Start: 07-07-2023 COLORECTAL CANCER SCREENING COLORECTAL CANCER SCREENING [facility] Start: 05-26-2022 ANNUAL PCP TEAM CHRONIC DISEASE VISIT ANNUAL PCP TEAM CHRONIC DISEASE VISIT [facility] Start: 05-26-2022 BP CONTROLLED (<130/80) BP CONTROLLED (<130/80) [facility] Start: 01-21-2022 SERUM CREATININE SERUM CREATININE [facility] Start: 11-14-2021 HEMOGLOBIN/HEMATOCRIT HEMOGLOBIN/HEMATOCRIT [facility] Start: 11-14-2021 Hepatitis B screening URINE ALBUMIN:CREATININE RATIO [facility] Start: 11-14-2021 Hepatitis B surface antibody level LDL CHOLESTEROL [facility] Start: 09-03-2021 3 comp foot exam completed DIABETIC FOOT EXAM [facility] Start: 08-20-2021 COVID-19 VACCINE (3 - Booster for Pfizer series) COVID-19 VACCINE (3 - Booster for Pfizer series) [facility] Start: 07-21-2021 Hemoglobin A1c/Hemoglobin.total in Blood HBA1C [facility] Start: 07-16-2021 Hepatitis C antibody, confirmatory test DILATED RETINAL EXAM [facility] Start: 05-15-2021 COVID-19 VACCINE (3 - Booster for Pfizer series) COVID-19 VACCINE (3 - Booster for Pfizer series) [facility] Start: 02-12-2021 End: 02-12-2021 Office Visit 02/12/2021 Office Visit Pulmonology Ken Mackey MD [address] [place] [address] [phone] [facility] Start: 11-29-2020 Urine microalbumin profile DTAP,TDAP,TD (2 - Td or Tdap) [facility] Start: 09-05-2020 Creatinine measurement Creatinine monitoring [employer] [place] Start: 09-05-2020 Creatinine monitoring Creatinine monitoring [employer] [place] , [place] Start: 09-05-2020 Potassium monitoring Potassium monitoring [facility] [place], [place] Start: 09-05-2020 End: 09-05-2020 Office Visit 09/05/2020 Office Visit Pain Management Alecia Dow MD [address] [facility] [address] [address] [phone] [facility] Start: 08-26-2020 Creatinine monitoring Creatinine monitoring [facility] [place] , [place] Start: 08-26-2020 Potassium monitoring Potassium monitoring [facility] [place] [place] Start: 08-16-2020 End: 08-16-2020 Virtual Visit 08/16/2020 Virtual Visit Cardiology Bobo Jones DO [address] [place] [address] [phone] [facility] Start: 08-15-2020 End: 08-15-2020 Evaluation 08/15/2020 Evaluation Physical Therapy Kobe Hurt, PT [address] [place] [address] [phone] [facility] Start: 08-12-2020 End: 08-12-2020 Office Visit 08/12/2020 Office Visit Pulmonology Ken Mackey MD [address] [place] [address] [phone] [facility] Start: 07-19-2020 End: 07-19-2020 Office Visit 07/19/2020 Office Visit Cardiology Bobo Jones DO [address] [place] [address] [phone] [facility] Start: 05-07-2020 End: 05-07-2020 Office Visit 05/07/2020 Office Visit Pulmonology Ken Mackey MD [address] [place] [address] [phone] [facility] Start: 04-23-2020 End: 04-23-2020 [facility]ment [facility] Start: 02-19-2020 Creatinine monitoring Creatinine monitoring [facility]- [place] , [place] Start: 02-19-2020 Potassium monitoring Potassium monitoring [facility] [place] [place] Start: 12-22-2019 End: 12-22-2019 Office Visit 12/22/2019 Office Visit Cardiology Bobo Jones DO [address] [place] [address] [phone] [facility] Start: 11-27-2019 A1C test (Diabetic or Prediabetic) A1C test (Diabetic or Prediabetic) [place] Start: 11-27-2019 HbA1c (Bld) [Mass fraction] A1C test (Diabetic or Prediabetic) [place] Start: 10-23-2019 End: 10-23-2019 Office Visit 10/23/2019 Office Visit Pulmonology Ken Mackey MD [address] [place] [address] [phone] [facility] Start: 09-12-2019 End: 09-12-2019 Office Visit 09/12/2019 Office Visit Cardiology Bobo Jones DO [address] [place] [address] [address] [place] [address] [phone] [facility] Start: 06-18-2019 FECAL OCCULT BLOOD FECAL OCCULT BLOOD [facility] Start: 05-21-2019 Annual Wellness Visit (AWV) Annual Wellness Visit (AWV) [place] Start: 11-15-2018 Lipid panel Lipid screen [place] Start: 11-15-2018 Lipid screen Lipid screen [place] Start: 04-28-2013 Diabetic microalbuminuria test Diabetic microalbuminuria test [place] Start: 2009 Colon cancer screen colonoscopy Colon cancer screen colonoscopy [place] Start: 2009 Screening for malignant neoplasm of colon Colon cancer screen colonoscopy [place] Start: 2009 Shingles Vaccine (1 of 2) Shingles Vaccine (1 of 2) [place], [place] Start: 02-15-2004 COLOGUARD (FIT-DNA) COLOGUARD (FIT-DNA) [facility] Start: 02-15-[address] COLONOGRAPHY [facility] Start: 02-15-2004 SIGMOIDOSCOPY SIGMOIDOSCOPY [facility] Start: 1978 DTaP/Tdap/Td vaccine (1 - Tdap) DTaP/Tdap/Td vaccine (1 - Tdap) [place] Start: 1977 BP CONTROLLED (<130/80) BP CONTROLLED (<130/80) [facility] Start: 1974 HIV screen HIV screen [place] Start: 1974 HIV screening HIV screen [place] Start: 1970 DTaP/Tdap/Td vaccine (1 - Tdap) DTaP/Tdap/Td vaccine (1 - Tdap) [place] Start: 1969 [object Object] Diabetic foot exam [place] Start: 1969 Diabetic foot examination Diabetic foot exam [place] Start: 1969 Diabetic retinal exam Diabetic retinal exam [place], [place] End: 09-05-2019 Bacteria identified Cx Nom (U) Urine Culture Microbiology STAT Once for 1 Occurrences starting 09/05/2019 until 09/05/2019 [place] Immunizations Immunization Date Immunization Notes Care Provider Fa cili 03-20-2021 COVID-19 vaccine, ag e 12+ yr (PFIZER-BIONTECH - PURPLE TOP) Charles Rizo MD Work Phone: [facility] 03-01-2021 COVID-19 vaccine, ag e 12+ yr (PFIZER-BIONTECH - PURPLE TOP) Charles Rizo MD Work Phone: [facility] 01-08-2021 zoster vaccine recombinant Charles Rizo MD Work Phone: [facility] 09-14-2020 zoster vaccine recombinant Charles Rizo MD Work Phone: [facility] Payers Date Payer Category Payer Medicaid [facility] MEDICAID [employer] [facility] MEDICAID [id number] 2018-Present [phone] [address] [place] [address] Medicaid [id number] 2018 Medicare [id number] 2018 Medicare [facility] MEDICARE [employer] [facility] MEDICARE [id number] 2018-Present [phone] [address] [place] [address] Medicare [id number] 2015 Private Health Insurance [id number] 2015 Private Health Insurance [facility] xxxxxxxxx 2015-Present [address] [place] [address] xxxxxxxxx [id number] 1959 Unknown [id number]. 2.182 1959 Unknown [id number]. 2.182 1959 Unknown [id number] [id number]. 2.182 1959 Unknown [id number] [id number]. 2.182 1959 Unknown [id number] [id number]. 2.182 1959 Unknown [id number] [id number]. 2.182 1959 Unknown [id number] [id number]. 2.182 1959 Unknown [id number] [id number]. 2.182 1959 Unknown [id number] [id number]. 2.182 1959 Unknown [id number] [id number]. 2.182 1959 Unknown [id number]. 2.182 Social History Date Type Detail Facility Start: 07-27-2019 End: 04-08-2023 Tobacco smoking status NHIS Never smoker [facility] Work Phone: Start: 07-27-2019 End: 08-26-2019 Alcohol intake No [facility] [employer] [place] Start: 04-17-2017 Alcohol Comment social Lynne [facility]ain- [place] Start: 1960 Sex Assigned At Not on file M rashmi [employer] [place] Start: 04-23-2020 End: 04-08-2023 Alcohol intake Current non-drinker of alcohol (finding) [employer] [employer] [facility] Exposure to SARS-CoV -2 (event) Unable to assess [employer] [place] Start: 08-07-2020 End: 04-08-2023 Tobacco use and exposure Never used [employer] [place] Start: 08-16-2021 End: 09-15-2021 Exposure to SARS-CoV-2 (event) Not sure [employer] [place] Start: 05-14-2020 End: 09-30-2020 History SDOH Alcohol Frequency 1 [facility] Start: 09-30-2020 History SDOH Alcohol Std Drinks 98 [facility] Start: 05-14-2020 End: 09-03-2020 History SDOH Social Connections Phone 4 [facility] Start: 05-14-2020 End: 01-28-2021 History SDOH Social Connections Membership 2 [facility] Start: 05-14-2020 History SDOH Social Connections Living 8 [facility] Start: 05-14-2020 History SDOH Physica l Activity DPW 0 [facility] Start: 05-14-2020 History SDOH Stress [address] [facility] Start: 05-13-2020 Education 12 [facility] Medical Equipment Procedure Code Equipment Code Equipment Origin al Text Equipment Identifier Dates [id number] Start: 10-31-2012 Goals Date Patient Goal Desired Activity /State Progress note 04-08-2023 Note Date & Type Note Facility 04-08-2023 Note HNO ID: [id number] Author: Pearl Mckinley APRN.CJ Service: ? Author Type: Nurse Practitioner Type: Progress Notes Filed: 04/08/2023 1:42 PM Note Text: [facility] SERVICE DATE: 04/06/2023 [...] 07/15: PCNL , right side Went to [place] ED on WEDNESDAY FOR ANURIA, BLADDER SCAN [...] kidney disease) stage 3, GFR 30-59 ml/min ([facility]) Dr. Hendrix Decreased breath sounds at right lung base Dr. Mackey Diabetic polyneuropathy associated with type 2 diabetes mellitus ([facility]) Diabetic retinopathy associated with type 2 diabetes mellitus ([facility]) bilateral retinopathy; Dr. Ozuna Elevated hemidiaphragm Dr. 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 Ozuna Hip arthritis History of gout History of MRSA infection History of myocardial infarction Dr. Jones Hyperlipidemia Hypertension Dr. Hendrix Insulin dependent type 2 diabetes mellitus, uncontrolled MDD (major depressive disorder) Microalbuminuria Obesity MARY on CPAP Dr. Mackey Osteoarthritis of multiple joints PAD (peripheral artery disease) ([facility]) peripheral artery stents (2 in R leg); Dr. Jones Personal history of colonic polyps colonoscopy 07/16, repeat 5 yrs Personal history of kidney stones Dr. Agosto PVD (peripheral vascular disease) ([facility]) Dr. Jones Requires supplemental oxygen S/P PTCA (percutaneous transluminal coronary angioplasty) x 2; Dr. Jones S/P thyroidectomy unsure if partial thyroidectomy Toe amputee ([facility]) Dr. Senior Tremor of both hands Unstable gait PAST SURGICAL HISTORY Procedure Laterality Date CARDIAC CATH 08/15 (Dr. Hart at [facility])--no additional stents placed (med management) [...] tablet by mouth three times daily. Insulin Phoenix, Disposable, (BD ULTRAFINE III MINI PEN) 31 [...] HCl (PROZAC) 4 (more content not included)... [facility] Instructions 04-08-2023 Patient Instructions Note Date & Type Note Facility 04-08-2023 Instructions Pearl Mckinley APRN.[facility] - 04/08/2023 1:29 PM EDT General Stone [...] more? National Digestive Diseases Information Clearinghouse2 Information [place], [place] [address] www.digestive.niddk.nih.gov email: References: National Digestive Diseases Information Clearinghouse. Constipation. digestive.niddk.nih.gov Accessed September 02, 2012. [place] [employer]. Understanding Constipation. www.gastro.org. Accessed September 02, 2012. Copyright 3567-6830 [facility]. All rights reserved This information is provided by the [facility] and is not intended to replace the medical advice of your doctor or health care provider. Please consult your health care provider for advice about a specific medical condition. For additional health information, please contact the Center for Consumer Health Information at the [facility] or toll-free extension [phone]. If you prefer, you may visit [email or web address] or [email or web address]. This document was last reviewed on: 2012 index #[id number] documented in this encounter [facility] History of Present illness Narrative 04-08-2023 Pearl Mckinley APRN.CNP - 04/08/2023 1:00 PM EDT Note Date & Type Note Facility 04-08-2023 History of Presen t illness Narrative [facility] SERVICE DATE: 04/06/2023 [...] 07/15: PCNL , right side Went to [place] ED on WEDNESDAY FOR ANURIA, BLADDER SCAN [...] kidney disease) stage 3, GFR 30-59 ml/min ([facility]) Dr. Hendrix Decreased breath sounds at right lung base Dr. Mackey Diabetic polyneuropathy associated with type 2 diabetes mellitus ([facility]) Diabetic retinopathy associated with type 2 diabetes mellitus ([facility]) bilateral retinopathy; Dr. Ozuna Elevated hemidiaphragm Dr. 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 Ozuna Hip arthritis History of gout History of MRSA infection History of myocardial infarction Dr. Jones Hyperlipidemia Hypertension Dr. Hendrix Insulin dependent type 2 diabetes mellitus, uncontrolled MDD (major depressive disorder) Microalbuminuria Obesity MARY on CPAP Dr. Mackey Osteoarthritis of multiple joints PAD (peripheral artery disease) ([facility]) peripheral artery stents (2 in R leg); Dr. Jones Personal history of colonic polyps colonoscopy 07/16, repeat 5 yrs Personal history of kidney stones Dr. Agosto PVD (peripheral vascular disease) ([facility]) Dr. Jones Requires supplemental oxygen S/P PTCA (percutaneous transluminal coronary angioplasty) x 2; Dr. Jones S/P thyroidectomy unsure if partial thyroidectomy Toe amputee ([facility]) Dr. Senior Tremor of both hands Unstable gait PAST SURGICAL HISTORY Procedure Laterality Date CARDIAC CATH 08/15 (Dr. Hart at [facility])--no additional stents placed (med management) [...] tablet by mouth three times daily. Insulin Phoenix, Disposable, (BD ULTRAFINE III MINI PEN) 31 [...] MARY W/ CPAP CARDIOVASCULAR: CAD, HX OF AR, HLD, HTN, PAD/PVD GI: HX GOUT, COLON [...] OFFICE FOR REVIEW documented in this encounter [facility] Note 05-01-2022 Telephone Encounter - Sheila Bush Ma - 05/01/2022 4:26 PM EDTTelephone Encounter - ABBY Siddiqi - 05/01/2022 3:42 PM EDT Note Date & Type Note Facility 05-01-2022 Miscellaneous Notes Patient last seen in office 12/24/20. Note faxed to number provided. Liberty from [facility] calling concerning Rea Linda today. : 1960 Allergies: Allopurinol, Influenza Virus Vaccines, and Pneumovax 23 [Pneumococcal 23-Ronit Ps Vaccine] Reason for call: Requesting to have patients most recent office visit notes faxed to: [phone] Patient last appointment: 01/20/2022 ABBY Siddiqi documented in this encounter [facility] Note 09-02-2021 Telephone Encounter - Colleen Garza RN - 09/02/2021 12:40 PM EDT Note Date & Type Note Facility 09-02-2021 Miscellaneous Notes ROBERT Hardwick from [facility] [facility] called Patient rolled out of bed today, hit his head on the side table No injury, patient is fine PT is required to report a fall Nothing is required from provider at this time documented in this encounter [facility] Progress note 05-01-2021 Note Date & Type Note Facility 05-01-2021 Note HNO ID: [id number] Author: Lalo Vail APRN.TARIFF EXPERT Service: ? Author Type: Nurse Practitioner Type: [...] kidney disease) stage 3, GFR 30-59 ml/min ([facility]) Dr. Hendrix - Decreased breath sounds at right lung base Dr. Mackey - Diabetic polyneuropathy associated with type 2 diabetes mellitus ([facility]) - Diabetic retinopathy associated with type 2 diabetes mellitus ([facility]) bilateral retinopathy; Dr. Ozuna - Elevated hemidiaphragm Dr. 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 Ozuna - Hip arthritis - History of gout - History of MRSA infection - History of myocardial infarction has had STEMI and NSTEMI; Dr. Jones - Hyperlipidemia - Hypertension Dr. Hendrix - Insulin dependent type 2 diabetes mellitus, uncontrolled ([facility]) Dr. Phipps - MDD (major depressive disorder) - Microalbuminuria Dr. Phipps - Obesity - MARY on CPAP Dr. Mackey - Osteoarthritis of multiple joints - PAD (peripheral artery disease) ([facility]) peripheral artery stents (2 in R leg); Dr. Jones - Personal history of colonic polyps colonoscopy 07/16, repeat 5 yrs - Personal history of kidney stones Dr. Agosto - PVD (peripheral vascular disease) ([facility]) Dr. Jones - S/P PTCA (percutaneous transluminal coronary angioplasty) x 2; Dr. Jones - S/P thyroidectomy unsure if partial thyroidectomy - Toe amputee ([facility]) Dr. Testrake - Tremor of both hands - Unstable gait PAST SURGICAL HISTORY Procedure Laterality Date - CARDIAC CATH 08/15 (Dr. Hart at [facility])--no additional stents placed (med management) [...] mg cap to (more content not included)... [facility] History of Past illness Narrative 01-24-2021 Note Date & Type Note Facility documented as of this encounter (statuses as of 02/20/2022) [facility] History of Past illness Narrative 01-24-2021 Note Date & Type Note Facility documented as of this encounter (statuses as of 05/01/2022) [facility] History of Past illness Narrative 01-24-2021 Note Date & Type Note Facility documented as of this encounter (statuses as of 04/08/2023) [facility] Evaluation note Note Date & Type Note Facility documented in this encounter [facility] Summary Purpose Family History No Family History Records FoundNo Family History Records FoundNo Family History Records FoundNo Family History Records FoundNo Family History Records Found Advance Directives No Advanced Directives Records FoundDocuments on File Type Date Recorded Patient Supervisor Ride Assembly Expl anation Advance Directives and Living Will Power of Vocational Adviser Latest Code Status on File Code Status [...] Documents on File Type Date Recorded Patient Supervisor Ride Assembly Expl anation Advance Directives and Living Will Power of Vocational Adviser Latest Code Status on File Code Status Date Activated Date Inactivated Comments Full Code 08/21/2019 12:20 AM 08/24/2019 7:49 PM Full Code 11/27/2018 6:36 AM 11/29/2018 8:49 PM Full Code 11/15/2017 3:43 PM 11/15/2017 7:49 PM Full Code 11/14/2017 11:42 PM 11/15/2017 3:43 PM Full Code 08/11/2017 2:27 PM 08/12/2017 3:15 AM Documents on File Type Date Recorded Patient Supervisor Ride Assembly Expl anation ACP-Advance Directive ACP-Power of Vocational Adviser Documents on File Type Date Recorded Patient Supervisor Ride Assembly Expl anation ACP-Advance Directive ACP-Power of Vocational Adviser Documents on File Type Date Recorded Patient Supervisor Ride Assembly Expl anation Advance Directive(s) 07/19/2018 6:23 PM Advance Directive(s) 07/14/2018 6:23 AM Advance Directive(s) 07/07/2018 7:18 AM Advance Directive(s) 06/28/2018 8:17 AM Advance Directive(s) 12/29/2016 8:10 AM Advance Directive(s) 12/10/2016 8:19 AM Discharge Instructions * Attachments The following attachments cannot be sent through Care Everywhere. 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 Return to if any symptoms worsen or new symptoms develop. * Attachments The following attachments cannot be sent through Care Everywhere. * Hypertension: General Info (Bruneian) * Diabetes: Type 2: General Info ([place]uneian) documented in this encounter* Instructions* Jamal Veliz PA-C - 08/13/[address] Hernandez, and primary care docotor. Use your walker. Return to ER if any symptoms worsen or new symptoms develop. * Attachments The following attachments cannot be sent through Care Everywhere. * Leg Pain (Bruneian) documented in this encounter* Attachments The following attachments cannot be sent through Care Everywhere. * Pneumonia ([place]uneian) documented in this encounter Assessments Diagnosis Sciatica [...] Lung nodule Procedures CT CHEST WO CONTRAST FL BREATHING CAPACITY TEST EVAL BRONCHOSPASM EVAL AFTER BRONCHODIALTOR Ken Mackey MD [address] [place] [address] Status Reason Specialty Diagnoses / Procedures Referre d By Contact Referred To Contact Open Radiology Diagnoses PAD (peripheral artery disease) (HCC) Claudication ([facility]) Procedures US DUP LOWER ART/BYPASS GRAFTS BILATERAL COMPLETE Bobo Jones Luan DO [address] [place] [address] Additional Source Comments (unrecognized sect ion and content) No Status Records FoundNo Status Records FoundNo Status Records FoundNo Status Records FoundNo Status Records Found INFORMATION SOURCE (unrecogn ized section and content) DATE CREATED AUTHOR AUTHOR'S ORGANIZ ATION 07/24/2018 [facility] DATE CREATED AUTHOR AUTHOR'S ORGANIZ ATION 08/14/2020 [facility] DATE CREATED AUTHOR AUTHOR'S ORGANIZ ATION 06/04/2021 [facility] DATE CREATED AUTHOR AUTHOR'S ORGANIZ ATION 04/10/2023 [facility] Reason for Visit (unrecogniz ed section and content) Reason Comments Hypertension sent by [facility] nurse Hyperglycemia Status Reason Specialty Diagnoses / Procedures Re ferred By Contact Referred To Contact Closed Radiology Diagnoses Lung nodule Procedures CT CHEST WO CONTRAST FL BREATHING CAPACITY TEST EVAL BRONCHOSPASM EVAL AFTER BRONCHODIALTOR Ken Mackey MD [address] [place] [address] Status Reason Specialty Diagnoses / Procedures Referred By Contact Referred To Contact [facility] Diagnoses Obstructive sleep apnea Procedures Baseline Diagnostic Sleep Study FL POLYSOM 6/>YRS SLEEP 4/> ADDL CIRO ATTND Ken Mackey MD [address] [place] [address] [facility] [address] [place] [address] Status Reason Specialty Diagnoses / Procedures Referre d By Contact Referred To Contact Open Radiology Diagnoses PAD (peripheral artery disease) (HCC) Claudication (HCC) Procedures US DUP LOWER ART/BYPASS GRAFTS BILATERAL COMPLETE Bobo Jones DO [address] [place] [address] Reason Comments Leg Pain and swelling on [...] or prosecute any alcohol or drug abuse patient.[facility] the event this information is protected by the Federal Confidentiality of Alcohol and Drug Abuse Patient Records regulations: The Federal rules restrict any use of the information to criminally investigate or prosecute any alcohol or drug abuse patient.[facility] the event this information is protected by the Federal Confidentiality of Alcohol and Drug Abuse Patient Records regulations: The Federal rules restrict any use of the information to criminally investigate or prosecute any alcohol or drug abuse patient.[facility] Care Teams (unrecognized sec tion and content) Mission Systems Engineer Relationship Specialty Start [place] [id number] [place], [place] [id number] PCP - General Family Practice 11/25/11 FOR [...] BE BASED ON THE PRIMARY CLINICAL RECORDS. [employer] provides no warranty or guarantee of the accuracy or completeness of information in this document.
[2023-11-20] MEDS: Ascorbic Acid 500 MG Tablet PO (16:26)
[2023-11-20] MEDS: Metoclopramide 5 MG TABLET PO (16:26)
--- NOTE | 2023-11-20 16:42 | CASEMGMT ---
Social Work SW received message from patient's nurse regarding SNF. Pt is from [facility] ([place]). SW spoke with nursing staff at [facility] who contacted their kennel supervisor, if patient is gone less than 24 hours he can return without a precert. Pt is under long-term and would need an insurance pre-cert if he is gone longer than 24 hours. SW notified nursing and physician. Sushila Dailey BUNCHER MACHINE, HOURLY SALES STAFF
--- NOTE | 2023-11-20 16:54 | NURSING ---
serum glucose drawn via PICC line and sent to lab. pt awake, took another cup of orange juice.
[2023-11-20] MEDS: 0.9% Saline Lock 10 ML Syringe IV (17:08)
[2023-11-20 17:10] LABS: Glucose 69 mg/dL (74-106)
[2023-11-20 17:39] LABS: Bedside Glucose 42 mg/dL (74-106)
[2023-11-20 17:39] LABS: Bedside Glucose 80 mg/dL (74-106)
[2023-11-20 17:39] LABS: Bedside Glucose 56 mg/dL (74-106)
[2023-11-20 17:39] LABS: Bedside Glucose 41 mg/dL (74-106)
[2023-11-20 18:54] LABS: Bedside Glucose 101 mg/dL (74-106)
[2023-11-20] MEDS: amLODIPine 10 MG Tablet PO (21:10)
[2023-11-20] MEDS: Atorvastatin Calcium 80 MG Tablet PO (21:10)
[2023-11-20] MEDS: Clopidogrel Bisulfate 75 MG Tablet PO (21:10)
[2023-11-20] MEDS: traZODone 50 MG Tablet 150 MG PO (21:10)
[2023-11-20] MEDS: MELATONIN 3 MG TABLET PO (21:10)
[2023-11-20] MEDS: hydrOXYzine PAM 25 MG Capsule 50 MG PO (21:10)
[2023-11-20 21:37] LABS: Bedside Glucose 62 mg/dL (74-106)
[2023-11-20 21:37] LABS: Bedside Glucose 97 mg/dL (74-106)
[2023-11-20] MEDS: Miconazole Nitrate 43 GM Bottle 1 APPLIC TOPICAL (23:56)
[2023-11-21 00:32] LABS: Bedside Glucose 74 mg/dL (74-106)
[2023-11-21 00:32] LABS: Bedside Glucose 46 mg/dL (74-106)
[2023-11-21 01:00] LABS: Bedside Glucose 103 mg/dL (74-106)
[2023-11-21] MEDS: Dextrose 5%/0.9% NaCl 1,000 ML 100 ML IV (02:28)
[2023-11-21 02:31] VITALS: BP 126/70; PULSE 81; RESP 18; TEMP 36.6; O2SAT 97
--- NOTE | 2023-11-21 03:00 | NURSING ---
Blood sugar is 45. Pt is refusing to eat or drink anything at this time. See mar
[2023-11-21] MEDS: Dextrose 50%-Water 25 GM/50 ML DISP.SYRIN IV ×2 (03:03→03:57)
[2023-11-21] MEDS: 0.9% Saline Lock 10 ML Syringe IV ×3 (03:04→08:38)
[2023-11-21 03:42] LABS: Bedside Glucose 45 mg/dL (74-106)
[2023-11-21 03:42] LABS: Bedside Glucose 122 mg/dL (74-106)
[2023-11-21 03:42] LABS: Bedside Glucose 62 mg/dL (74-106)
[2023-11-21] MEDS: Dextrose 10%-Water 250 ML 150 ML IV ×3 (04:00→06:42)
[2023-11-21 04:40] LABS: Bedside Glucose 160 mg/dL (74-106)
[2023-11-21 05:50] LABS: Absolute Lymphocyte Count 1.62 X10^3/uL (0.83-4.51); Absolute Neutrophil Count 4.6 X10^3/uL (2.0-7.7); Basophil# 0.02 X10^3/uL; Basophil% 0.3 % (0-1); Eosinophil# 0.02 X10^3/uL; Eosinophils% 0.3 % (0-5); Hematocrit 31.9 % (40-54); Lymphocyte # 1.62 X10^3/ul (0.83-4.51); Lymphocyte % 22.3 % (19-41); Mean Corp Hgb Conc 31.3 g/dL (32-36); Mean Corpuscular Hgb 26.4 pg (27.0-32.0); Mean Corpuscular Volume 84.2 fL (80-94); Mean Platelet Vol. 10.7 fl (6.2-12.0); Monocyte# 0.95 X10^3/uL; Monocyte% 13.1 % (0-10); NRBC Flagged by Analyzer 0 % (0-5); Neutrophil # 4.64 X10^3/uL (2.7-7.7); Neutrophil % 63.7 % (47-70); Platelet Count 201 K/mm3 (150-450); RBC Distribution Width CV 14.7 % (11.6-14.6); RBC Distribution Width SD 45.3 fl (35.1-43.9); Red Blood Count 3.79 M/mm3 (4.6-6.2); White Blood Count 7.3 K/mm3 (4.4-11.0)
[2023-11-21 06:13] LABS: Anion Gap 3 (5-15); BUN 13 mg/dL (7-18); BUN/Creat Ratio 9.8 RATIO (10-20); Calcium,Total 8.1 mg/dL (8.5-10.1); Chloride 107 mmol/L (98-107); Creatinine, Serum 1.33 mg/dL (0.70-1.30); EST Glomerular Filtration Rate 57 mL/min (>60); Est Glom Filt Rate - Afr Amer 70 mL/min (>60); Estimated Creatinine Clearance 57.94 ml/min; Glucose 140 mg/dL (74-106); Potassium 4.5 mmol/L (3.5-5.1); Sodium Level 140 mmol/L (136-145)
[2023-11-21] MEDS: Heparin Injection (Vial) 5,000 UNIT/ML VIAL 5000 UNIT SC (06:40)
[2023-11-21] MEDS: Metoclopramide 5 MG TABLET PO (06:51)
[2023-11-21 07:01] LABS: Bedside Glucose 152 mg/dL (74-106)
--- NOTE | 2023-11-21 07:55 | NURSING ---
talked with nataliia Lester at [place] and informed of discharge orders. states pt is able to return today as long as within the 24hr window of leaving without needing precert.
--- NOTE | 2023-11-21 08:08 | NURSING ---
transport for discharge arranged, transport to arrive within the hour.
--- NOTE | 2023-11-21 08:10 | PCM.TXEXTCAR ---
Diet Diet Order/Speech Therapy: 11/20/23 10:42 Diet: Regular - General Food consistency:: Soft & Bite Sized Type of Dietary Supplement:: Magic Cup Dessert Is pt able to select menu?: No Diet Comments: Magic Cup orange w/ lunch & dinner, Lorenz yogurt w/ beneprotein at bfast Routine Orders/Code Status Routine Lab Work: CBC and BMP Code Status: Full Code Wound(s) chronic L HEEL WOUND SEES DR MALONE FOR: Wound Type: Neuropathic/Diabetic Foot Ulcer gluteal fold/crack: Wound Type: Pressure Injury Therapies Physical Therapy: Eval and Treat Occupational Therapy: Eval and Treat Problem/Diagnosis (1) Diabetic hypoglycemia: Status: Acute Code(s): E11.649 - Type 2 diabetes mellitus with hypoglycemia without coma Plan 1. Failure to thrive with increasing weakness and inability to complete ADLs/chronic respiratory failure/DM2 with hyperglycemia/COVID-positive ? Continue with his baseline oxygen of 2 L at night ?Plan will be to return to SNF ? PT/OT ? Will hold his home insulin as well as oral medications ? Continue with D5 normal saline and monitor his blood sugars ? Accu-Cheks ACHS ? We will place him on a sliding scale insulin ? He did test positive for COVID at the group home, has not significantly symptomatic at this time so we will not proceed with treatment 2. Chronic diastolic CHF/CAD/peripheral artery disease status post stent HTN/HLD ? Blood pressure stable, will monitor and make adjustments ? Resume his home medications 3. 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 Continue with IV vancomycin and outpatient follow-up with ID 4. GERD ? Stable ? Continue with PPI 5. Anxiety/depression ? Stable ? Continue with his home medications DVT: Heparin 75 minutes was spent on direct patient care, including documentation as well as chart review and collaboration with colleagues Allergies/Procedures Done in Hospital Allergies allopurinol Adverse Reaction (Verified 11/20/23 08:55) Vomiting Influenza Virus Vaccines Adverse Reaction (Verified 11/20/23 08:55) Vomiting pneumococcal vaccine Adverse Reaction (Verified 11/20/23 08:55) Vomiting Procedures: None Type of Care/Length of Stay Estimated LOS: Convalescent Care Less Than 30 days Type of Care Needed: Skilled Rehab Potential: Good Prognosis: Good Additional Orders/Day of Discharge Day of Discharge: 11/21/23 Dietary and Speech Recommendations Dietitian Recommendations/Changes: Will maintain regular diet for liberalization. Pt not interested in Ensure/Glucerna nor Aubrey at this time. Pt agreed to Magic Cup w/ lunch and dinner (orange flavor) and strawberry yogurt w/ beneprotein at breakfast. Will continue to follow the pt, monitor oral intakes and modify interventions as needed. Discharge Plan Admission Admit Date/Time: 11/20/23 12:55 Attending Provider: Gabe Mathew Primary Care Provider: Doretha Brown Discharge Orders/Prescriptions Prescriptions: Continued (DME) Ultra-Light Rollator Misc See Rx Instructions .Route Qty: 1 2RF Rx Instructions: As directed (DME) pen needle, diabetic 33 gauge x 5/16 needle See Rx Instructions .Route Qty: 200 3RF Rx Instructions: As directed melatonin 3 mg tablet 3 mg PO QHS fluoxetine 20 mg capsule 20 mg PO DAILY Patient Comments: TAKE ONE 20MG AND ONE 40MG CAPSULE BY MOUTH ONCE DAILY FOR A TOTAL DOSE OF 60MG (DME) Lift Chair See Rx Instructions .Route .MEDSUPPLY Qty: 1 0RF Rx Instructions: As directed (DME) gauze bandage [Bordered Gauze] 4 X 4 bandage See Rx Instructions .ROUTE .MEDSUPPLY Qty: 14 2RF Rx Instructions: Daily cleanse left foot wound with soap and water, dry and apply Betadine solution and apply clean dressing fluoxetine 40 mg capsule 40 mg PO DAILY Patient Comments: TAKE ONE 20MG AND ONE 40MG CAPSULE BY MOUTH ONCE DAILY FOR A TOTAL DOSE OF 60MG trazodone 150 mg tablet 150 mg PO QHS pantoprazole 40 mg tablet,delayed release (DR/EC) 40 mg PO DAILY atorvastatin 80 mg tablet 80 mg PO QHS bisacodyl 10 mg suppository 10 mg [place] DAILY PRN (Reason: CONSTIPATION ) amlodipine 10 mg tablet 10 mg PO BID aspirin [Ecotrin Low Strength] 81 mg tablet,delayed release (DR/EC) 81 mg PO DAILY lorazepam 0.5 mg tablet 0.5 mg PO Q4H PRN (Reason: ANXIETY/AGITATION ) hydroxyzine HCl 25 mg tablet 50 mg PO QHS magnesium 250 mg tablet 250 mg PO DAILY hyoscyamine sulfate 0.125 mg tablet 0.125 mg PO Q4H PRN (Reason: BLADDER) isosorbide mononitrate 30 mg tablet extended release 24 hr 30 mg PO DAILY metoclopramide HCl 5 mg tablet 5 mg PO TID nitroglycerin 0.4 mg tablet, sublingual 0.4 mg sublingual Q5M PRN (Reason: CHEST PAIN ) sennosides-docusate sodium [Senna Plus] 8.6-50 mg tablet 1 tab-cap PO BID tizanidine 2 mg tablet 2 mg PO Q8H PRN (Reason: MUSCLE SPASMS ) ascorbic acid (vitamin C) 500 mg tablet 500 mg PO BID clopidogrel 75 mg tablet 75 mg PO QHS pregabalin 75 mg Capsule 75 mg PO Q12H PRN (Reason: PAIN ) (DME) FreeStyle Mago 14 Day Sensor Kit See Rx Instructions .Route Rx Instructions: As directed; check BS 3x daily for DMII vancomycin in dextrose 5 % 1 gram/200 mL Piggyback 1,000 mg IV Q24H 37 Days Qty: 7400 0RF Rx Instructions: stop date 12/01/23. dx: foot osteo weekly bmp, cbc, vanc trough, and ESR. Fax to [phone] oxycodone 5 mg tablet 5 mg PO Q6H PRN (Reason: pain) 3 Days Qty: 12 0RF glucagon HCl [Glucagon (HCl) Emergency Kit] 1 mg recon soln 1 mg IM Q15M PRN (Reason: hypoglycemia) Rx Instructions: until target blood sugar attained dextrose [Gluco Burst] 40 % gel 15 g PO Q15M PRN (Reason: hypoglycemia) Rx Instructions: until symptoms of low blood sugar are controlled (DME) Wheelchair See Rx Instructions .Route .MEDSUPPLY Qty: 1 0RF Rx Instructions: As directed Held Levemir FlexPen 100 unit/mL (3 mL) insulin pen 20 unit SUBCUT BID Hold Instructions: Resume on 11/23/23. Discontinued glimepiride 2 mg tablet 2 mg PO BID Referrals / Follow Up: Doretha Brown MD [Primary Care Provider] - Disposition Disposition (needs filled in before D/C Order can be placed): Long Term Facility
[2023-11-21] MEDS: Ascorbic Acid 500 MG Tablet PO (08:25)
[2023-11-21] MEDS: Aspirin E.C. 81 MG Tablet PO (08:25)
[2023-11-21 08:27] VITALS: BP 156/99; PULSE 78; RESP 18; TEMP 36.6; O2SAT 93
--- NOTE | 2023-11-21 09:22 | NURSING ---
sign.other listed on demographics informed of dc back to [facility]
--- NOTE | 2023-11-21 12:38 | PCM.DC.SUM ---
Providers Date of Admission: 11/20/23 Primary Care Physician: Dr. Doretha Brown MD Reason For Visit: HYPOGLYCEMIA Diagnosis Discharge Diagnosis (1) Diabetic hypoglycemia: Status: Acute Code(s): E11.649 - Type 2 diabetes mellitus with hypoglycemia without coma Plan 1. Failure to thrive with increasing weakness and inability to complete ADLs/chronic respiratory failure/DM2 with hyperglycemia/COVID-positive ? Continue with his baseline oxygen of 2 L at night ?Plan will be to return to SNF ? PT/OT ? Will hold his home insulin as well as oral medications ? Continue with D5 normal saline and monitor his blood sugars ? Accu-Cheks ACHS ? We will place him on a sliding scale insulin ? He did test positive for COVID at the [place] [facility], has not significantly symptomatic at this time so we will not proceed with treatment 2. Chronic diastolic CHF/CAD/peripheral artery disease status post stent HTN/HLD ? Blood pressure stable, will monitor and make adjustments ? Resume his home medications 3. 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 Continue with IV vancomycin and outpatient follow-up with ID 4. GERD ? Stable ? Continue with PPI 5. Anxiety/depression ? Stable ? Continue with his home medications DVT: Heparin 75 minutes was spent on direct patient care, including documentation as well as chart review and collaboration with colleagues Medications at Discharge Home Medications gauze bandage 4 X 4 (Bordered Gauze) #14 ea 07/03/22 walker (Ultra-Light Rollator misc) #1 ea 07/21/22 pen needle, diabetic 33 gauge x 5/16 #200 ea 12/02/22 fluoxetine 20 mg capsule 20 mg PO DAILY ANXIETY 03/23/23 melatonin 3 mg tablet 3 mg PO QHS INSOMNIA 03/23/23 atorvastatin 80 mg tablet 80 mg PO QHS CHOLESTEROL 05/25/23 fluoxetine 40 mg capsule 40 mg PO DAILY ANXIETY 05/25/23 pantoprazole 40 mg tablet,delayed release 40 mg PO DAILY ACID REFLUX 05/25/23 trazodone 150 mg tablet 150 mg PO QHS INSOMNIA 05/25/23 Wheelchair #1 ea 07/23/23 Lift Chair #1 ea 08/06/23 bisacodyl 10 mg rectal suppository 10 mg ME DAILY PRN CONSTIPATION 08/28/23 amlodipine 10 mg tablet 10 mg PO BID BLOOD PRESSURE 10/19/23 ascorbic acid (vitamin C) 500 mg tablet 500 mg PO BID SUPPLEMENT 10/19/23 aspirin 81 mg tablet,delayed release (Ecotrin Low Strength) 81 mg PO DAILY HEART HEALTH 10/19/23 clopidogrel 75 mg tablet 75 mg PO QHS BLOOD THINNER 10/19/23 hydroxyzine HCl 25 mg tablet 50 mg PO QHS 10/19/23 hyoscyamine sulfate 0.125 mg tablet 0.125 mg PO Q4H PRN BLADDER 10/19/23 insulin detemir U-100 100 unit/mL (3 mL) subcutaneous pen (Levemir FlexPen) 20 unit subcut BID DIABETES 10/19/23 isosorbide mononitrate 30 mg tablet,extended release 24 hr 30 mg PO DAILY HEART 10/19/23 lorazepam 0.5 mg tablet 0.5 mg PO Q4H PRN ANXIETY/AGITATION 10/19/23 magnesium 250 mg tablet 250 mg PO DAILY SUPPLEMENT 10/19/23 metoclopramide HCl 5 mg tablet 5 mg PO TID INTESTINES 10/19/23 nitroglycerin 0.4 mg sublingual tablet 0.4 mg sublingual Q5M PRN CHEST PAIN 10/19/23 pregabalin 75 mg capsule 75 mg PO Q12H PRN PAIN 10/19/23 sennosides 8.6 mg-docusate sodium 50 mg tablet (Senna Plus) 1 tab-cap PO BID CONSTIPATION 10/19/23 tizanidine 2 mg tablet 2 mg PO Q8H PRN MUSCLE SPASMS 10/19/23 flash glucose sensor (FreeStyle Mago 14 Day Sensor kit) 10/20/23 oxycodone 5 mg tablet 5 mg PO Q6H PRN pain 3 days #12 tabs 10/25/23 vancomycin 1 gram/200 mL in dextrose 5 % intravenous piggyback 1,000 mg IV Q24H 37 days #7,400 mL 10/25/23 dextrose 40 % oral gel (Gluco Burst) 15 g PO Q15M PRN hypoglycemia 11/12/23 glucagon HCl 1 mg solution for injection (Glucagon (HCl) Emergency Kit) 1 mg IM Q15M PRN hypoglycemia 11/12/23 Hospital Course Operations None Procedures None Summary of Care Provided Minutes Spent on Discharge: 35 Hospital Course: Per HPI: REA HANNA, is a 63 M who presents from the [place] [facility] for hypoglycemia. He states he just does not like the food there so he does not eat all that much and it sounds if they have continually been giving him his insulin leading to the hypoglycemia. In discussion with the ED physician, it does not appear that any aggressive treatments were done at the [place] [facility] to offset the hypoglycemia. In the ER he was given a regular diet as well as orange juice and dextrose and he had a transient response but still became hypoglycemic into the 60s and therefore was admitted. Hospital Course: 1. Failure to thrive with increasing weakness and inability to complete ADLs/chronic respiratory failure/DM2 with hyperglycemia/COVID-positive ? Continue with his baseline oxygen of 2 L at night ?Plan will be to return to SNF ? PT/OT ? Will hold his home insulin as well as oral medications ? Continue with D5 normal saline and monitor his blood sugars ? Accu-Cheks ACHS ? We will place him on a sliding scale insulin ? He did test positive for COVID at the [place] [facility], has not significantly symptomatic at this time so we will not proceed with treatment 11/21/2023: Blood sugars remained stable therefore discussed with him the plan for discharge today he expressed understanding of the risk benefits of going back to the [place] [facility] is okay with going back today. I discontinued his home glimepiride and decrease his home Lantus to 5 to 10 units twice daily I do encourage the use of glucagon if this were to happen again as he has an issue with eating some of the [place] [facility] food. 2. Chronic diastolic CHF/CAD/peripheral artery disease status post stent HTN/HLD ? Blood pressure stable, will monitor and make adjustments ? Resume his home medications 3. 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 Continue with IV vancomycin and outpatient follow-up with ID 4. GERD ? Stable ? Continue with PPI 5. Anxiety/depression ? Stable ? Continue with his home medications Physical Exam Narrative General: Alert, Oriented x3, Cooperative, No apparent distress HEENT: Atraumatic, PERRLA, EOMI, Normocephalic Oral: Moist mucosa Neck: Supple, No JVD Lungs: Diminished, Normal air movement, rhonchi, No wheeze, No rales Cardiovascular: Regular rate, Regular Rhythm, Normal S1, Normal S2, No murmurs Abdomen: Soft, Non Tender, Non-Distended, No Hepato-splenomegaly Extremities: No edema, Capillary Refill Less than 3 Seconds Skin: Known left foot ulceration, currently dressed left foot is in a boot Musculoskeletal: No Tenderness to Palpation of Joints or Extremities Neurological: Cranial nerves II-XII grossly intact, Motor Exam 5/5 strength throughout, Sensory exam intact to light touch and pain Psych/Mental Status: Flat Weight / BMI Weight Weight: 247 lb Body Mass Index (BMI) 35.4 ABG / Lab / Microbiology Data 11/21/23 04:45 11/21/23 04:45 Laboratory: Laboratory Results - last 24 hr 11/20/23 16:24: POC Glucose 42 L* 11/20/23 16:41: POC Glucose 41 L* 11/20/23 16:50: Glucose 69 L 11/20/23 16:57: POC Glucose 56 L 11/20/23 17:16: POC Glucose 80 11/20/23 18:33: POC Glucose 101 11/20/23 20:39: POC Glucose 62 L 11/20/23 21:07: POC Glucose 97 11/20/23 23:52: POC Glucose 46 L 11/21/23 00:12: POC Glucose 74 11/21/23 00:42: POC Glucose 103 11/21/23 02:27: POC Glucose 62 L 11/21/23 02:58: POC Glucose 45 L 11/21/23 03:21: POC Glucose 122 H 11/21/23 04:22: POC Glucose 160 H 11/21/23 04:45: WBC 7.3, RBC 3.79 L, Hgb 10.0 L, Hct 31.9 L, MCV 84.2, MCH 26.4 L, MCHC 31.3 L, RDW Std Deviation 45.3 H, RDW Coeff of James 14.7 H, Plt Count 201, MPV 10.7, Immature Gran % (Auto) 0.300, Neut % (Auto) 63.7, Lymph % (Auto) 22.3, Glascock % (Auto) 13.1 H, Eos % (Auto) 0.3, Baso % (Auto) 0.3, Absolute Neuts (auto) 4.6, Absolute Lymphs (auto) 1.62, Nucleated RBC % 0, Sodium 140, Potassium 4.5, Chloride 107, Carbon Dioxide 30.0, Anion Gap 3 L, BUN 13, Creatinine 1.33 H, Estim Creat Clear Calc 57.94, Est GFR (MDRD) Af Amer 70, Est GFR (MDRD) Non-Af 57 L, BUN/Creatinine Ratio 9.8 L, Glucose 140 H, Calcium 8.1 L 11/21/23 06:39: POC Glucose 152 H Meaningful Use Info Meaningful Use Diagnoses (Choose all that apply): None applicable Discharge Plan Admission Admit Date/Time: 11/20/23 12:55 Attending Provider: Gabe Mathew Primary Care Provider: Doretha Brown Discharge Orders/Prescriptions Prescriptions: Continued (DME) Ultra-Light Rollator Misc See Rx Instructions .Route Qty: 1 2RF Rx Instructions: As directed (DME) pen needle, diabetic 33 gauge x 5/16 needle See Rx Instructions .Route Qty: 200 3RF Rx Instructions: As directed melatonin 3 mg tablet 3 mg PO QHS fluoxetine 20 mg capsule 20 mg PO DAILY Patient Comments: TAKE ONE 20MG AND ONE 40MG CAPSULE BY MOUTH ONCE DAILY FOR A TOTAL DOSE OF 60MG (DME) Lift Chair See Rx Instructions .Route .MEDSUPPLY Qty: 1 0RF Rx Instructions: As directed (DME) gauze bandage [Bordered Gauze] 4 X 4 bandage See Rx Instructions .ROUTE .MEDSUPPLY Qty: 14 2RF Rx Instructions: Daily cleanse left foot wound with soap and water, dry and apply Betadine solution and apply clean dressing fluoxetine 40 mg capsule 40 mg PO DAILY Patient Comments: TAKE ONE 20MG AND ONE 40MG CAPSULE BY MOUTH ONCE DAILY FOR A TOTAL DOSE OF 60MG trazodone 150 mg tablet 150 mg PO QHS pantoprazole 40 mg tablet,delayed release (DR/EC) 40 mg PO DAILY atorvastatin 80 mg tablet 80 mg PO QHS bisacodyl 10 mg suppository 10 mg ME DAILY PRN (Reason: CONSTIPATION ) amlodipine 10 mg tablet 10 mg PO BID aspirin [Ecotrin Low Strength] 81 mg tablet,delayed release (DR/EC) 81 mg PO DAILY lorazepam 0.5 mg tablet 0.5 mg PO Q4H PRN (Reason: ANXIETY/AGITATION ) hydroxyzine HCl 25 mg tablet 50 mg PO QHS magnesium 250 mg tablet 250 mg PO DAILY hyoscyamine sulfate 0.125 mg tablet 0.125 mg PO Q4H PRN (Reason: BLADDER) isosorbide mononitrate 30 mg tablet extended release 24 hr 30 mg PO DAILY metoclopramide HCl 5 mg tablet 5 mg PO TID nitroglycerin 0.4 mg tablet, sublingual 0.4 mg sublingual Q5M PRN (Reason: CHEST PAIN ) sennosides-docusate sodium [Senna Plus] 8.6-50 mg tablet 1 tab-cap PO BID tizanidine 2 mg tablet 2 mg PO Q8H PRN (Reason: MUSCLE SPASMS ) ascorbic acid (vitamin C) 500 mg tablet 500 mg PO BID clopidogrel 75 mg tablet 75 mg PO QHS pregabalin 75 mg Capsule 75 mg PO Q12H PRN (Reason: PAIN ) (DME) FreeStyle Mago 14 Day Sensor Kit See Rx Instructions .Route Rx Instructions: As directed; check BS 3x daily for DMII vancomycin in dextrose 5 % 1 gram/200 mL Piggyback 1,000 mg IV Q24H 37 Days Qty: 7400 0RF Rx Instructions: stop date 12/01/23. dx: foot osteo weekly bmp, cbc, vanc trough, and ESR. Fax to [phone] oxycodone 5 mg tablet 5 mg PO Q6H PRN (Reason: pain) 3 Days Qty: 12 0RF glucagon HCl [Glucagon (HCl) Emergency Kit] 1 mg recon soln 1 mg IM Q15M PRN (Reason: hypoglycemia) Rx Instructions: until target blood sugar attained dextrose [Gluco Burst] 40 % gel 15 g PO Q15M PRN (Reason: hypoglycemia) Rx Instructions: until symptoms of low blood sugar are controlled (DME) Wheelchair See Rx Instructions .Route .MEDSUPPLY Qty: 1 0RF Rx Instructions: As directed Held Levemir FlexPen 100 unit/mL (3 mL) insulin pen 20 unit SUBCUT BID Hold Instructions: Resume on 11/23/23. Discontinued glimepiride 2 mg tablet 2 mg PO BID Referrals / Follow Up: Doretha Brown MD [Primary Care Provider] - Disposition Disposition (needs filled in before D/C Order can be placed): [facility] Facility Charges/Coding Visit Charges Inpatient E&M: 37317 Disch Hosp >30min
[2023-11-23 11:09] LABS: Bedside Glucose 187 mg/dL (74-106)
== END 2023-11-21 08:50 ==
LOC: ED 11:21 → MS3 12:46
PROVIDERS: Admitting Provider Family Medicine; Emergency Provider Emergency Medicine; PCP Internal Medicine; Visit Provider Family Medicine
DX: E11.649 Type 2 diabetes mellitus with hypoglycemia without coma (principal); E11.621 Type 2 diabetes mellitus with foot ulcer; E11.51 Type 2 diabetes mellitus with diabetic peripheral angiopathy without gangrene; L97.429 Non-pressure chronic ulcer of left heel and midfoot with unspecified severity; M86.8X7 Other osteomyelitis, ankle and foot; J44.9 Chronic obstructive pulmonary disease, unspecified; I13.0 Hypertensive heart and chronic kidney disease with heart failure and stage 1 through stage 4 chronic kidney disease, or unspecified chronic kidney disease; I50.32 Chronic diastolic (congestive) heart failure; E11.69 Type 2 diabetes mellitus with other specified complication; E11.22 Type 2 diabetes mellitus with diabetic chronic kidney disease; E11.42 Type 2 diabetes mellitus with diabetic polyneuropathy; E11.65 Type 2 diabetes mellitus with hyperglycemia; J96.11 Chronic respiratory failure with hypoxia; Z79.4 Long term (current) use of insulin; Z79.02 Long term (current) use of antithrombotics/antiplatelets; N18.9 Chronic kidney disease, unspecified; Z79.84 Long term (current) use of oral hypoglycemic drugs; I25.10 Atherosclerotic heart disease of native coronary artery without angina pectoris; F41.9 Anxiety disorder, unspecified; E78.00 Pure hypercholesterolemia, unspecified; Z79.82 Long term (current) use of aspirin; K21.9 Gastro-esophageal reflux disease without esophagitis; Z79.899 Other long term (current) drug therapy; F32.A Depression, unspecified; U07.1 COVID-19; Z99.81 Dependence on supplemental oxygen; R62.7 Adult failure to thrive
CPT/HCPCS: 36415; 36591; 71045; 80048; 80053; 82947; 82962; 83690; 85025; 94640; 96360; 96361; 97802; 99221; 99285; A4216; G0378

== ENCOUNTER 2023-12-14 08:18 | Outpatient (RCR) | payer MEDICARE, SELFPAY ==
[2023-12-14 09:16] VITALS: BP 134/79; PULSE 96; RESP 20; TEMP 36.4; BMI 34.4
--- NOTE | 2023-12-14 09:48 | PN.PCM_ITS ---
History of Present Illness Date of Service: 12/14/23 Chief Complaint: left foot ulcer History of Wound: 63-year-old male presents for follow-up on a chronic left heel ulceration in setting of peripheral arterial disease, peripheral neuropathy, diabetes. Patient has new onset sacral ulcer today. Patient denies constitutional symptoms. Patient [facility] facility receiving IV vancomycin for left heel osteomyelitis. No new changes today to left heel wound. Objective Data Objective Data Vital Signs: Vital Signs Temp Pulse Resp BP 97.6 F L 96 20 H 134/79 H 12/14/23 09:16 12/14/23 09:16 12/14/23 09:16 12/14/23 09:16 Weight: 108.912 kg Body Mass Index (BMI) 34.4 Physical Exam Narrative Neurovascular status unchanged Full-thickness wound noted to left heel down to level of muscle. There are some necrotic tissue predebridement postdebridement demonstrates clean granular base with clean skin edges periwound areas and no evidence of deep probing undermining or signs of infection. Pre and postdebridement measurements documented nursing notes. Patient has diminished diminished muscular strength to all lower extremity compartments bilaterally to 4 out of 5. Const alert and oriented x3 Debridement Note Debridement Note Post-Debridement Measurements and Additional Note: Post-Debridement Measurements/Treatment WC - Nurse 1 - General Ulcer Assessment Start: 12/14/23 09:14 Freq: Status: Active Protocol: [email or web address] Activity Type Activity Date Activity User E-sign Co-sign Detail Recorded Client Recorded Date Recorded By Document 12/14/23 09:16 DL Desktop 12/14/23 09:32 DL 12/14/23 09:16 - Today's Visit Information Type of service Initial Visit Arrival Mode Wheelchair Transfer Assistance Shirley Lift Transfer Assist (Other) x2 Patient Identification Verified (Name & Yes ) Patient Requires Transmission-Based No Precautions Height and Weight Height 5 ft 10 in Weight 108.912 kg Weight in Pounds 240.1 lbs Body Mass Index (BMI) 34.4 BMI Classification Obese BSA - Edd 2.26 Vital Signs Temperature (97.8 F-99.1 F) 97.6 F L Temperature Source Temporal Pulse Rate (60-100) 96 Pulse Location Monitor Respiratory Rate (12-18) 20 H Respiratory rate source Observation Blood Pressure (90/60-120/80) 134/79 H Blood Pressure Mean (mm Hg) 97 Source Monitor Pain Scale: 0-10 Numeric Is Patient Pain Free? Yes Communication Assessment Preferred language Polish Able to Read Yes Able to Write Yes Teaching Assessment Preferences Verbal,Written, Demonstration Barriers to Learning Unable to Comprehend Readiness To Learn Poor Willingness to Engage in Self Management Low Activies Readiness to Engage in Self Management Low Activities Anxiety Level Anxious Cooperation Cooperative Perception Confused Interest in Health Problem Asks Questions Does Patient Smoke tobacco or other No substances Is Patient Diabetic Yes Functional Assessment Recent Decline in Ability to Perform Denies Any Declines Culture/Jewish/Drafter Civil (Cad) Cultural/Jewish Needs that may affect No Treatment Plan Would you allow our [facility] to No meet you for the purpose of spiritual/ emotional support? Drafter Civil (Cad) to contact place of [facility] No Teaching: Wound Center Eliminating Foot Pressure -Person Taught Patient Dressing Your Wound -Person Taught Patient WC - Nurse 1 - General Ulcer Measurement Start: 12/14/23 09:14 Freq: Status: Active Protocol: Activity Type Activity Date Activity User E-sign Co-sign Detail Recorded Client Recorded Date Recorded By Document 12/14/23 09:16 DL Desktop 12/14/23 09:32 DL 12/14/23 09:16 Wound Center Nurse 1 #4 Sacral -Current Size (cm) - Length 4 -Current Size (cm) - Width 3 -Current Size (cm) - Depth 0.5 -Total Square Cm 12 -Photo Taken Yes -Exudate Amt Large -Exudate Type Serosanguineous -Wound Margin Distinct, Outline Attached -Granulation Amt None Present (0 %) -Necrosis Amt Medium (34-66%) -Necrotic Tissue Type Adherent Slough -Structure Exposed N/A -Texture (Sammi-wound Skin Appearance) Scarring -Moisture (Sammi-wound Skin Appearance) No Abnormality, Maceration -Color (Sammi-wound Skin Appearance) Erythema -Ulcer Cleansing Soap and Water -Foul Odor after Cleansing No #3 L Lat Foot -Current Size (cm) - Length 0.8 -Current Size (cm) - Width 1.1 -Current Size (cm) - Depth 0.1 -Total Square Cm 0.88 -Photo Taken Yes -Exudate Amt None Present -Wound Margin Thickened -Granulation Amt None Present (0 %) -Necrosis Amt Large (67-100%) -Necrotic Tissue Type Eschar -Structure Exposed N/A -Texture (Sammi-wound Skin Appearance) Localized Edema ,Scarring -Moisture (Sammi-wound Skin Appearance) No Abnormality -Color (Sammi-wound Skin Appearance) No Abnormality -Temperature (Sammi-wound Skin No Abnormality Appearance) (Pt Warm) -Ulcer Cleansing Soap and Water -Foul Odor after Cleansing No -Anesthetic Used 4% Lidocaine Solution #2 L Heel -Current Size (cm) - Length 4.3 -Current Size (cm) - Width 3.3 -Current Size (cm) - Depth 0.6 -Total Square Cm 14.19 -Photo Taken Yes -Exudate Amt Large -Exudate Type Serosanguineous -Wound Margin Distinct, Outline Attached -Granulation Amt Small (1-33%) -Granulation Quality Red -Necrosis Amt Large (67-100%) -Necrotic Tissue Type Adherent Slough -Structure Exposed N/A -Texture (Sammi-wound Skin Appearance) Localized Edema ,Scarring -Moisture (Sammi-wound Skin Appearance) Maceration -Color (Sammi-wound Skin Appearance) Erythema -Temperature (Sammi-wound Skin No Abnormality Appearance) (Pt Warm) -Tenderness on Palpation (Sammi-wound No Skin Appearance) -Ulcer Cleansing Soap and Water -Foul Odor after Cleansing No -Anesthetic Used 4% Lidocaine Solution Left Calf (cm) 38.2 Left Ankle (cm) 24.7 Assessment/Plan Assessment/Plan (1) Non-pressure chronic ulcer of other part of left foot with necrosis of muscle: CODE(S): L97.523 - Non-pressure chronic ulcer of other part of left foot with necrosis of muscle PLAN: Exam performed Patient underwent partial calcanectomy left heel on 10/20/2023 for calcaneal osteomyelitis. Cultures were positive for corynebacterium. Patient still on IV vancomycin via PICC line per infectious disease. Patient residing in SNF receiving daily dressing changes with Dakin's wet-to-dry. Left heel wound was debrided down to including level of muscle of all nonviable tissue using a 5 mm dermal curette without incident. Hemostasis obtained with light compression. Topical anesthesia used viaTopical lidocaine. Patient tolerated procedure well. Pre and postdebridement measurements documented nursing notes. Dressed with Dakin's wet-to-dry no compression due to peripheral arterial disease. Offload left heel using PRAFO/Prevalon boot at [facility] at all times. Patient nonweightbearing to left heel Minimal concern for residual infection today. Wound improving. Referral for wound care management of the sacral wound Follow-up weekly. (2) Peripheral vascular occlusive disease: CODE(S): I73.9 - Peripheral vascular disease, unspecified (3) Type 2 diabetes mellitus with diabetic polyneuropathy: CODE(S): E11.42 - Type 2 diabetes mellitus with diabetic polyneuropathy
== END 2023-12-29 23:59 | disposition home or self-care (01) ==
LOC: WC 08:18
PROVIDERS: PCP Internal Medicine; Referring Provider Podiatrist; Visit Provider Podiatrist
DX: E11.51 Type 2 diabetes mellitus with diabetic peripheral angiopathy without gangrene (principal); I70.244 Atherosclerosis of native arteries of left leg with ulceration of heel and midfoot; L97.423 Non-pressure chronic ulcer of left heel and midfoot with necrosis of muscle; L98.429 Non-pressure chronic ulcer of back with unspecified severity; E11.42 Type 2 diabetes mellitus with diabetic polyneuropathy; Z79.4 Long term (current) use of insulin; Z79.82 Long term (current) use of aspirin; Z79.02 Long term (current) use of antithrombotics/antiplatelets; Z79.899 Other long term (current) drug therapy; Z87.39 Personal history of other diseases of the musculoskeletal system and connective tissue
CPT/HCPCS: 11043; 99214; G0463

== ENCOUNTER 2023-12-20 18:25 | Emergency (ER) | payer MEDICARE, MEDICAID, SELFPAY ==
[2023-12-20 18:27] VITALS: BP 154/82; PULSE 79; RESP 10; TEMP 36.3; O2SAT 98; BMI 31.1
--- NOTE | 2023-12-20 18:30 | EX.ED.DYSGE1 ---
HPI History of Present Illness Chief Complaint: Shortness of Breath Detail of Chief Complaint: Sent from long term because of guppy breathing Informant: EMS and SNF Onset/Context/Timing Onset: - (Unknown) Context: - (Unknown) Timing: Continuous (Presumed) Quality: Patient has hiccups Current Severity: Mild Maximum Severity: Mild Worsened by: Unknown Relieved by: Apparently nothing Associated Symptoms Associated Symptoms: Patient voices no complaints. Narrative Narrative: Patient is 63-year-old male who lives at [facility]. All of his family members reside at [facility]. Patient is a full code hospice patient. Patient's eyes are closed. He does not respond unless she you call him by his first name. When he is called by his first name he will answer questions asked. He denied fever or chills. He denies shortness of breath. He does complain of left foot pain when moved from EMS cot to examination cot. He denies head pain. He denies chest pain. He denies abdominal pain. There is been no reported vomiting or diarrhea. Prior similar symptoms: No Recent Illness/Hospitalization: No PFSH PFSH Medical History Acute osteomyelitis of left foot CELESTE (acute kidney injury) Ambulates with cane Amputation of one or more toes Anxiety and depression Arrhythmia Arthritis Aspiration pneumonia Atherosclerotic heart disease of [place] coronary artery without angina pectoris Back pain Back spasm Bilateral leg weakness Blind left eye Blister (nonthermal), left foot, initial encounter Bronchiectasis with (acute) exacerbation Cardiology follow-up encounter Chronic cough Chronic respiratory failure with hypoxia CKD (chronic kidney disease) COPD (chronic obstructive pulmonary disease) Coronary artery disease CPAP (continuous positive airway pressure) dependence Debility, unspecified Decubitus ulcer limited to breakdown of skin (stage 2) Depression Diabetes Diabetes mellitus Essential hypertension Gastric reflux GERD (gastroesophageal reflux disease) High cholesterol History of aspiration pneumonia History of coronary artery disease History of diabetes mellitus History of echocardiogram History of edema History of gout History of heart attack History of non-ST elevation myocardial infarction (NSTEMI) (08/2016) History of pain when walking History of steroid therapy Hx of type 2 diabetes mellitus Hyperglycemia due to type 2 diabetes mellitus Hypertension Insulin dependent diabetes mellitus Irregular heart beat Kidney stones Left ankle instability Leg pain, right Leukocytosis Low back pain Memory impairment Migraines Mood disorder Non healing left heel wound Non-pressure chronic ulcer of other part of left foot with necrosis of bone Non-smoker Noncompliance by declining intervention or support On home oxygen therapy Peripheral vascular disease, unspecified Peripheral vascular occlusive disease Pneumonia Prostate disease Pulmonary nodule, left Recurrent falls Respiratory failure with hypoxia Right ankle pain Right foot pain Shortness of breath on exertion Silent aspiration Sleep apnea Tremor Type 2 diabetes mellitus with diabetic polyneuropathy Type 2 diabetes mellitus with diabetic polyneuropathy Ulcer of left foot, limited to breakdown of skin Vision loss of left eye Wears glasses Wound of left lower extremity Home Medications gauze bandage 4 X 4 (Bordered Gauze) #14 ea 07/03/22 [Rx Last Taken Unknown] walker (Ultra-Light Rollator misc) #1 ea 07/21/22 [Rx Last Taken Unknown] pen needle, diabetic 33 gauge x 16 #200 ea 12/02/22 [Rx Last Taken Unknown] fluoxetine 20 mg capsule 20 mg PO DAILY ANXIETY 03/23/23 [History Last Taken 10/19/23] melatonin 3 mg tablet 3 mg PO QHS INSOMNIA 03/23/23 [History Last Taken 10/18/23] atorvastatin 80 mg tablet 80 mg PO QHS CHOLESTEROL 05/25/23 [History Last Taken 10/18/23] fluoxetine 40 mg capsule 40 mg PO DAILY ANXIETY 05/25/23 [History Last Taken 10/19/23] pantoprazole 40 mg tablet,delayed release 40 mg PO DAILY ACID REFLUX 05/25/23 [History Last Taken 10/19/23] trazodone 150 mg tablet 150 mg PO QHS INSOMNIA 05/25/23 [History Last Taken 10/18/23] Wheelchair #1 ea 07/23/23 [Rx Last Taken Unknown] Lift Chair #1 ea 08/06/23 [Rx Last Taken Unknown] bisacodyl 10 mg rectal suppository 10 mg IN DAILY PRN CONSTIPATION 08/28/23 [History Last Taken Unknown] amlodipine 10 mg tablet 10 mg PO BID BLOOD PRESSURE 10/19/23 [History Last Taken 10/19/23] ascorbic acid (vitamin C) 500 mg tablet 500 mg PO BID SUPPLEMENT 10/19/23 [History Last Taken 10/19/23] aspirin 81 mg tablet,delayed release (Ecotrin Low Strength) 81 mg PO DAILY HEART HEALTH 10/19/23 [History Last Taken 10/19/23] clopidogrel 75 mg tablet 75 mg PO QHS BLOOD THINNER 10/19/23 [History Last Taken 10/18/23] hydroxyzine HCl 25 mg tablet 50 mg PO QHS 10/19/23 [History Last Taken 10/18/23] hyoscyamine sulfate 0.125 mg tablet 0.125 mg PO Q4H PRN BLADDER 10/19/23 [History Last Taken Unknown] insulin detemir U-100 100 unit/mL (3 mL) subcutaneous pen (Levemir FlexPen) 20 unit subcut BID DIABETES 10/19/23 [History Last Taken 10/19/23] isosorbide mononitrate 30 mg tablet,extended release 24 hr 30 mg PO DAILY HEART 10/19/23 [History Last Taken 10/19/23] lorazepam 0.5 mg tablet 0.5 mg PO Q4H PRN ANXIETY/AGITATION 10/19/23 [History Last Taken Unknown] magnesium 250 mg tablet 250 mg PO DAILY SUPPLEMENT 10/19/23 [History Last Taken 10/19/23] metoclopramide HCl 5 mg tablet 5 mg PO TID INTESTINES 10/19/23 [History Last Taken 10/19/23] nitroglycerin 0.4 mg sublingual tablet 0.4 mg sublingual Q5M PRN CHEST PAIN 10/19/23 [History Last Taken Unknown] pregabalin 75 mg capsule 75 mg PO Q12H PRN PAIN 10/19/23 [History Last Taken Unknown] sennosides 8.6 mg-docusate sodium 50 mg tablet (Senna Plus) 1 tab-cap PO BID CONSTIPATION 10/19/23 [History Last Taken 10/19/23] tizanidine 2 mg tablet 2 mg PO Q8H PRN MUSCLE SPASMS 10/19/23 [History Last Taken Unknown] flash glucose sensor (FreeStyle [place] 14 Day Sensor kit) 10/20/23 [History Last Taken Unknown] oxycodone 5 mg tablet 5 mg PO Q6H PRN pain 3 days #12 tabs 10/25/23 [Rx Last Taken Unknown] dextrose 40 % oral gel (Gluco Burst) 15 g PO Q15M PRN hypoglycemia 11/12/23 [History Last Taken Unknown] glucagon HCl 1 mg solution for injection (Glucagon (HCl) Emergency Kit) 1 mg IM Q15M PRN hypoglycemia 11/12/23 [History Last Taken Unknown] ondansetron HCl 8 mg tablet 8 mg PO Q6H PRN PRN nausea and vomiting 12/14/23 [History Last Taken Unknown] Allergy/AdvReac Type Severity Reaction Status Date / Time allopurinol AdvReac Vomiting Verified 12/20/23 18:26 Influenza Virus Vaccines AdvReac Vomiting Verified 12/20/23 18:26 pneumococcal vaccine AdvReac Vomiting Verified 12/20/23 18:26 Family History Mother Diabetes Heart disease CHF Father Heart disease OR/CAD Myocardial infarction Surgical History H/O lithotripsy History of angioplasty of peripheral vessel (2016) History of angioplasty of peripheral vessel History of ankle surgery History of cardiac catheterization History of coronary artery stent placement (08/2016) History of coronary artery stent placement History of esophagogastroduodenoscopy (EGD) History of left heart catheterization (11/15/17) History of thyroid surgery Hx of lithotripsy Hx of surgery to heart and great vessels, presenting hazards to health Hx of surgical procedure Hx of thyroidectomy Hx of toe surgery Hx of toe surgery PEG (percutaneous endoscopic gastrostomy) status Social History household members: spouse housing: long term Smoking Status: Never smoker alcohol intake: never substance use type: does not use ROS ROS ED Constitutional Constitutional ED: Denies chills or fever(s) ENT ENT ED: Denies rhinorrhea or sore throat Cardiovascular Cardiovascular: Denies chest pain Respiratory/Chest Respiratory/Chest: Denies cough or dyspnea Gastrointestinal Gastrointestinal: Denies diarrhea or vomiting Musculoskeletal Musculoskeletal: Reports other Details: Left foot pain otherwise negative Integumentary Reports other Details: Patient with wound left foot/heel. Neurologic Neurologic: Reports weakness EXAM Physical Exam Const Vital Signs: 12/20/23 18:27 12/20/23 18:35 12/20/23 18:37 Temperature 97.3 F L Temperature Source Temporal Pulse Rate 79 Respiratory Rate 10 L 12 Respiratory Effort Short of Breath Blood Pressure 154/82 H Blood Pressure Mean 106 Pulse Ox 98 Oxygen Delivery Method Nasal Cannula Nasal Cannula Oxygen Flow Rate (L/min) 4 4 12/20/23 19:38 Temperature Temperature Source Pulse Rate 89 Respiratory Rate 18 Respiratory Effort Blood Pressure 141/85 H Blood Pressure Mean 103 Pulse Ox 96 Oxygen Delivery Method Oxygen Flow Rate (L/min) Positive well nourished and well developed General Appearance ED: well developed, NAD and pallor; Negative for cyanotic or diaphoretic HEENT Reports moist mucous membranes HEENT Narrative: Patient is awake but not alert. He does respond to his name will answer questions when addressed initially by his name otherwise there is no response. Eyes PERRL and EOMs intact bilaterally General Eye ED: Negative for scleral icterus Neck no lymphadenopathy, supple and no JVD Neck Narrative: Trachea is midline. There is no stridor. Resp normal respiratory effort and clear to auscultation bilaterally Cardio regular rate, regular rhythm, S1 normal heart sound, S2 normal heart sound and no murmurs GI normal to inspection, nondistended, normoactive bowel sounds, non-tender and non-distended; Negative for hepatosplenomegaly Palpation: soft Extremity Negative for normal to inspection Extremity Narrative: Amputation mid right foot. Pressure ulcer left foot. Neuro No oriented x3 and CN's II-XII intact bilaterally Sensorium / Orientation: Negative for alert Psych mental status grossly normal Skin No skin turgor normal Skin Narrative: Wound left foot. General Skin Exam: pallor; Negative for elasticity normal or jaundice MDM MDM MDM Narrative Medical decision making narrative: Patient has hiccups. Will treat with IV Thorazine. Will obtain chest x-ray to determine if there is a lower lobe pneumonia. CBC to assess white count. Hiccups can be caused from lower lobe pneumonia, irritation of the diaphragm due to numerous reasons. Will also obtain liver enzymes to determine if there is any inflammation of the liver. Lab Data Attestation: I reviewed the patient's lab results. Lab results narrative: White count is elevated. Is no bandemia. Patient has chronic microcytic anemia. Basic metabolic panel is remarkable for a glucose of 230 with a normal CO2 anion gap. There is mild hyponatremia and hypokalemia. Labs: Laboratory Results - last 24 hr 12/20/23 18:55 WBC 14.2 H RBC 4.37 L Hgb 11.3 L Hct 34.8 L MCV 79.6 L MCH 25.9 L MCHC 32.5 RDW Std Deviation 40.2 RDW Coeff of James 13.9 Plt Count 300 MPV 9.7 Immature Gran % (Auto) 0.600 Neut % (Auto) 71.9 H Lymph % (Auto) 13.5 L Garvin % (Auto) 11.4 H Eos % (Auto) 2.0 Baso % (Auto) 0.6 Absolute Neuts (auto) 10.2 H Absolute Lymphs (auto) 1.92 Nucleated RBC % 0 Differential Comment SCANNED Sodium 134 L Potassium 3.3 L Chloride 100 Carbon Dioxide 29.0 Anion Gap 5 BUN 16 Creatinine 1.18 Estim Creat Clear Calc 78.97 Est GFR (MDRD) Af Amer 80 Est GFR (MDRD) Non-Af 66 BUN/Creatinine Ratio 13.6 Glucose 230 H Calcium 9.3 Radiography Chest X-Ray - ED: 2 View and Read by ED Physician (Independent reviewed interpreted by me at 1901. There is elevation of right hemidiaphragm. There is elevation of a right diaphragm. Cardiac size is normal. The right cardiac silhouette is somewhat obscured. Mediastinum appears normal. There is no infiltrate noted. There is no abnormali) Diagnostic Testing: Clinical Impression(s) from Imaging Studies Chest X-Ray 12/20/23 18:50 IMPRESSION: No radiographic evidence of acute cardiopulmonary disease. Electronically Signed: Jonatan Wheatley MD at 19:42 EST Reading Location ID and State: [facility] / [place] Tel , Service support , Treatment and Re-Evaluation :: Patient was reassessed at 1933. He no longer has hiccups. He is slightly more somnolent most likely due to the Thorazine. Plan is to discharge back to nursing facility. Discharge Plan Triage Chief Complaint: Shortness of Breath ED Provider: Sebastien Maradiaga Dx/Rx/DC Orders Clinical Impression: Intractable hiccoughs, Chronic respiratory failure with hypoxia, Memory impairment, Type 2 diabetes mellitus with diabetic polyneuropathy, Non-pressure chronic ulcer of other part of left foot with fat layer exposed, Peripheral vascular occlusive disease, Lymphedema of right lower extremity Instructions: ED Hiccups Prescriptions: No Action (DME) Ultra-Light Rollator Misc See Rx Instructions .Route Qty: 1 2RF Rx Instructions: As directed (DME) pen needle, diabetic 33 gauge x 5/16 needle See Rx Instructions .Route Qty: 200 3RF Rx Instructions: As directed melatonin 3 mg tablet 3 mg PO QHS fluoxetine 20 mg capsule 20 mg PO DAILY Patient Comments: TAKE ONE 20MG AND ONE 40MG CAPSULE BY MOUTH ONCE DAILY FOR A TOTAL DOSE OF 60MG (DME) Lift Chair See Rx Instructions .Route .MEDSUPPLY Qty: 1 0RF Rx Instructions: As directed (DME) gauze bandage [Bordered Gauze] 4 X 4 bandage See Rx Instructions .ROUTE .MEDSUPPLY Qty: 14 2RF Rx Instructions: Daily cleanse left foot wound with soap and water, dry and apply Betadine solution and apply clean dressing fluoxetine 40 mg capsule 40 mg PO DAILY Patient Comments: TAKE ONE 20MG AND ONE 40MG CAPSULE BY MOUTH ONCE DAILY FOR A TOTAL DOSE OF 60MG trazodone 150 mg tablet 150 mg PO QHS pantoprazole 40 mg tablet,delayed release (DR/EC) 40 mg PO DAILY atorvastatin 80 mg tablet 80 mg PO QHS bisacodyl 10 mg suppository 10 mg IN DAILY PRN (Reason: CONSTIPATION ) amlodipine 10 mg tablet 10 mg PO BID aspirin [Ecotrin Low Strength] 81 mg tablet,delayed release (DR/EC) 81 mg PO DAILY lorazepam 0.5 mg tablet 0.5 mg PO Q4H PRN (Reason: ANXIETY/AGITATION ) hydroxyzine HCl 25 mg tablet 50 mg PO QHS Levemir FlexPen 100 unit/mL (3 mL) insulin pen 20 unit SUBCUT BID Hold Instructions: Resume on 11/23/23. magnesium 250 mg tablet 250 mg PO DAILY hyoscyamine sulfate 0.125 mg tablet 0.125 mg PO Q4H PRN (Reason: BLADDER) isosorbide mononitrate 30 mg tablet extended release 24 hr 30 mg PO DAILY metoclopramide HCl 5 mg tablet 5 mg PO TID nitroglycerin 0.4 mg tablet, sublingual 0.4 mg sublingual Q5M PRN (Reason: CHEST PAIN ) sennosides-docusate sodium [Senna Plus] 8.6-50 mg tablet 1 tab-cap PO BID tizanidine 2 mg tablet 2 mg PO Q8H PRN (Reason: MUSCLE SPASMS ) ascorbic acid (vitamin C) 500 mg tablet 500 mg PO BID clopidogrel 75 mg tablet 75 mg PO QHS pregabalin 75 mg Capsule 75 mg PO Q12H PRN (Reason: PAIN ) (DME) FreeStyle [place] 14 Day Sensor Kit See Rx Instructions .Route Rx Instructions: As directed; check BS 3x daily for DMII oxycodone 5 mg tablet 5 mg PO Q6H PRN (Reason: pain) 3 Days Qty: 12 0RF glucagon HCl [Glucagon (HCl) Emergency Kit] 1 mg recon soln 1 mg IM Q15M PRN (Reason: hypoglycemia) Rx Instructions: until target blood sugar attained dextrose [Gluco Burst] 40 % gel 15 g PO Q15M PRN (Reason: hypoglycemia) Rx Instructions: until symptoms of low blood sugar are controlled ondansetron HCl 8 mg tablet 8 mg PO Q6H PRN PRN (Reason: nausea and vomiting) Rx Instructions: 1st dose 1-2 hr before radiation (DME) Wheelchair See Rx Instructions .Route .MEDSUPPLY Qty: 1 0RF Rx Instructions: As directed Primary Care Provider: Doretha Brown Referrals: Doretha Brown MD [Primary Care Provider] - Disposition Disposition: [facility] Facility
[2023-12-20 18:35] VITALS: RESP 12
[2023-12-20 18:37] VITALS: O2SAT 100
--- NOTE | 2023-12-20 18:50 | RAD_ITS ---
INDICATION: Adventitial breath sounds EXAMINATION/TECHNIQUE: X-RAY - XR Chest 2 Views COMPARISON: 10/20/2023 FINDINGS: LINES/DEVICES: None. LUNGS: Stable elevation right hemidiaphragm with right lower lobe subsegmental atelectasis. No consolidation or pleural effusion. No vascular congestion. MEDIASTINUM AND CARDIOVASCULAR STRUCTURES: Cardiac silhouette stable within normal limits. BONES AND SOFT TISSUES: No acute changes. RAD/Chest PA and Lateral IMPRESSION: No radiographic evidence of acute cardiopulmonary disease. Electronically Signed: Jonatan Wheatley MD at 19:42 EST ,
[2023-12-20 19:03] LABS: Absolute Lymphocyte Count 1.92 X10^3/uL (0.83-4.51); Absolute Neutrophil Count 10.2 X10^3/uL (2.0-7.7); Basophil# 0.08 X10^3/uL; Basophil% 0.6 % (0-1); Eosinophil# 0.29 X10^3/uL; Hematocrit 34.8 % (40-54); Hemoglobin 11.3 g/dL (13.0-16.5); Lymphocyte # 1.92 X10^3/ul (0.83-4.51); Lymphocyte % 13.5 % (19-41); Mean Corp Hgb Conc 32.5 g/dL (32-36); Mean Corpuscular Hgb 25.9 pg (27.0-32.0); Mean Corpuscular Volume 79.6 fL (80-94); Mean Platelet Vol. 9.7 fl (6.2-12.0); Monocyte# 1.62 X10^3/uL; Monocyte% 11.4 % (0-10); NRBC Flagged by Analyzer 0 % (0-5); Neutrophil # 10.23 X10^3/uL (2.7-7.7); Neutrophil % 71.9 % (47-70); POSITIVE DIFFERENTIAL YES; Platelet Count 300 K/mm3 (150-450); RBC Distribution Width CV 13.9 % (11.6-14.6); RBC Distribution Width SD 40.2 fl (35.1-43.9); Red Blood Count 4.37 M/mm3 (4.6-6.2); White Blood Count 14.2 K/mm3 (4.4-11.0)
--- OUTSIDE RECORDS SUMMARY | 2023-12-20 19:05 | XMS RPT_ITS | CCD ---
Author Name Unknown Address [address] [facility] [address] [place] [address] Organization [facility] Care Team Providers Care Physician/Ophthalmologist Name Role Phone CHARLES RIZO Unavailable Unavailable [...] Care Provider Charles Rizo Primary Care Provider CHARLES RIZO Primary Care Unavailable SKYE GO Admitting Unavailab SKYE Mena Attending Unavailab STEF Sanchez Consulting Unavailable KOMITAU, CHARLES Primary Care Unavailable ROXANNE VALENCIA~[id number] Attending Unavaila ble ERIK, CHARLES Primary Care [...] Drug Allergy 2 Nausea And Vomiting, Vomiting [facility] (5 sources) pneumococcal vaccine; Translations: [PNEUMOCOCCAL 23-RONIT PS VACCINE] Drug Allergy 4 Vomiting [facility] (5 sources) INFLUENZA VIRUS VACCINES; Translations: [INFLUENZA VIRUS VACCINES] Propensity to adverse reactions to drug (disorder) 4 Intolerance [facility] (1 source) OPIOIDS - MORPHINE ANALOGUES; Translations: [OPIOIDS - MORPHINE ANALOGUES] Propensity to adverse reactions to drug (disorder) 7 AOF [facility] (10 sources) Influenza Vaccines Propensity to adverse reactions to drug 6 [place], [place] (10 sources) Morphine And Related Propensity to adverse reactions to drug 7 Nausea And Vomiting [place] (10 sources) Pneumococcal Vac Polyvalent Propensity to adverse reactions to drug 6 [place] Medications Current Medications Medication Drug Class(es) [...] 13:12-0400 Body height 177.8 cm Pearl Mckinley APRN.LIBRARY MONITOR Work Phone: [facility] 04-08-2023 13:12-0400 Body weight 123.38 kg Pearl Mckinley APRN.LIBRARY MONITOR Work Phone: [facility] 04-08-2023 13:12-0400 Diastolic blood pressure 83 mm[Hg] Pearl Mckinley COMMUNITY MARKETING COORDINATOR.LIBRARY MONITOR Work Phone: [facility] 04-08-2023 13:12-0400 Heart rate 53 /min Pearl Mckinley APRN.LIBRARY MONITOR Work Phone: [facility] 04-08-2023 13:12-0400 SaO2% (BldA) [Mass fraction] 95 % Pearl Mckinley APRN.LIBRARY MONITOR Work Phone: [facility] 04-08-2023 13:12-0400 Systolic blood pressure 155 mm[Hg] Pearl Potterro COMMUNITY MARKETING COORDINATOR.LIBRARY MONITOR Work Phone: [facility] 08-13-2020 18:59-0400 BP Diastolic 81 mm[Hg] [facility] [place] 08-13-2020 18:59-0400 BP Systolic 153 mm[Hg] [facility] [place] 08-13-2020 18:59-0400 Pulse (Heart Rate) 73 /min [facility] 08-13-2020 18:59-0400 Pulse Oximetry 99 % [place], [place] 08-13-2020 18:59-0400 Respiratory Rate 18 /min [facility] 04-23-2020 12:02-0400 BMI (Body Mass Index) 35.87 kg/m2 [place] [address] [place], [place] 04-23-2020 12:02-0400 Body weight 113.[address] , [place] 04-23-2020 12:02-0400 BP Diastolic 69 mm[Hg] [address] , [place] 04-23-2020 12:02-0400 BP Systolic 110 mm[Hg] [address] , [place] 04-23-2020 12:02-0400 Height 177.[address] , [place] 04-23-2020 12:02-0400 Pulse (Heart Rate) 89 /min [address] 04-23-2020 12:02-0400 Respiratory Rate 18 /min [address], [place] 04-12-2020 17:19-0400 BP Diastolic 94 mm[Hg] [facility] [place] 04-12-2020 17:19-0400 BP Systolic 173 mm[Hg] [facility] [place] 04-12-2020 17:18-0400 BMI (Body Mass Index) 35.87 kg/m2 [facility] [place] 04-12-2020 17:18-0400 Body Temperature 97.81 [degF] [facility] 04-12-2020 17:18-0400 Body weight 113.4 kg [facility] [place] 04-12-2020 17:18-0400 Height 177.8 cm [facility] [place] 04-12-2020 17:18-0400 Pulse (Heart Rate) 79 /min [facility] [place] 04-12-2020 17:18-0400 Pulse Oximetry 94 % [facility] [place] 04-12-2020 17:18-0400 Respiratory Rate 18 /min [facility] [place] 10-14-2019 11:30-0500 BP Diastolic 90 mm[Hg] [facility] [place] 10-14-2019 11:30-0500 BP Systolic 157 mm[Hg] [facility] [place] 10-14-2019 11:30-0500 Pulse (Heart Rate) 71 /min [facility] [place] 10-14-2019 11:30-0500 Pulse Oximetry 94 % [facility] [place] 10-14-2019 11:30-0500 Respiratory Rate 20 /min [facility] 10-14-2019 10:21-0500 BMI (Body Mass Index) 35.87 kg/m2 [facility] [place] 10-14-2019 10:21-0500 Body Temperature 97.39 [degF] [facility] 10-14-2019 10:21-0500 Body weight 113.4 kg [facility] [place] 10-14-2019 10:21-0500 Height 177.8 [facility] [place] 09-05-2019 20:00-0400 BP Diastolic 96 mm[Hg] [facility] [place] 09-05-2019 20:00-0400 BP Systolic 141 mm[Hg] [facility] , [place] 09-05-2019 20:00-0400 Pulse (Heart Rate) 88 /min [facility], [place] 09-05-2019 20:00-0400 Pulse Oximetry 96 % [facility] [place] 09-05-2019 19:35-0400 Respiratory Rate 19 /min [facility] [place] 09-05-2019 16:35-0400 BMI (Body Mass Index) 36.16 kg/m2 [facility] [place] 09-05-2019 16:35-0400 Body Temperature 97.7 [degF] [facility] 09-05-2019 16:35-0400 Body weight 114.31 kg [facility] [place] 09-05-2019 16:35-0400 Height 177.8 cm [facility] [place] 07-27-2019 15:38-0400 BMI (Body Mass Index) 35.87 kg/m2 [facility] [place] [place] 07-27-2019 15:38-0400 Body Temperature 97.39 [degF] [place] 07-27-2019 15:38-0400 Body weight 113.4 kg [place] 07-27-2019 15:38-0400 BP Diastolic 89 mm[Hg] [place] 07-27-2019 15:38-0400 BP Systolic 158 mm[Hg] [place] 07-27-2019 15:38-0400 Height 177.8 cm [place] 07-27-2019 15:38-0400 Pulse (Heart Rate) 74 /min [facility] [place] 07-27-2019 15:38-0400 Pulse Oximetry 96 % [place] 07-27-2019 15:38-0400 Respiratory Rate 20 /min [place] Encounters Encounter Date Encounter Type Care Provider Facility Start: 04-08-2023 End: 04-08-2023 ambulatory PEARL MCKINLEY Facility:[facility] Start: 04-08-2023 End: 04-08-2023 Patient encounter [...] CHARLES HAND Start: 08-21-2019 IP CONSULT TO [facility] CHARLES RIZO Start: 08-21-2019 DIET [...] CANCER SCREENING DISCUSSION PROSTATE CANCER SCREENING DISCUSSION [facility] Start: 07-07-2023 Colonoscopy COLONOSCOPY [facility] Start: 07-07-2023 COLORECTAL CANCER SCREENING COLORECTAL CANCER SCREENING [facility] Start: 05-26-2022 ANNUAL PCP TEAM CHRONIC DISEASE VISIT ANNUAL PCP TEAM CHRONIC DISEASE VISIT [facility] Start: 05-26-2022 BP CONTROLLED (<130/80) BP CONTROLLED (<130/80) [facility] Start: 01-21-2022 SERUM CREATININE SERUM CREATININE [facility] Start: 11-14-2021 HEMOGLOBIN/HEMATOCRIT HEMOGLOBIN/HEMATOCRIT [facility] Start: 11-14-2021 Hepatitis B screening URINE ALBUMIN:CREATININE RATIO [facility] Start: 11-14-2021 Hepatitis B surface antibody level LDL CHOLESTEROL [facility] Start: 09-03-2021 3 comp foot exam completed DIABETIC FOOT EXAM [facility] Start: 08-20-2021 COVID-19 VACCINE (3 - Booster for Pfizer series) COVID-19 VACCINE (3 - Booster for Pfizer series) [facility] Start: 07-21-2021 Hemoglobin A1c/Hemoglobin.total in Blood HBA1C [facility] Start: 07-16-2021 Hepatitis C antibody, confirmatory test DILATED RETINAL EXAM [facility] Start: 05-15-2021 COVID-19 VACCINE (3 - Booster for Pfizer series) COVID-19 VACCINE (3 - Booster for Pfizer series) [facility] Start: 02-12-2021 End: 02-12-2021 Office Visit 02/12/2021 Office Visit Pulmonology Ken Mackey MD [address] [facility] [address] [place] [address] [id number] [facility] Start: 11-29-2020 Urine microalbumin profile DTAP,TDAP,TD (2 - Td or Tdap) [facility] Start: 09-05-2020 Creatinine measurement Creatinine monitoring [facility] [place] Start: 09-05-2020 Creatinine monitoring Creatinine monitoring [facility] [place] , [place] Start: 09-05-2020 Potassium monitoring Potassium monitoring [facility] [place], [place] Start: 09-05-2020 End: 09-05-2020 Office Visit 09/05/2020 Office Visit Pain Management Alecia Dow MD [address] [facility] [address] [address] [phone] [facility] Start: 08-26-2020 Creatinine monitoring Creatinine monitoring [facility] [place] [facility] [place] Start: 08-26-2020 Potassium monitoring Potassium [facility] [place] [place] Start: 08-16-2020 End: 08-16-2020 Virtual Visit 08/16/2020 Virtual Visit Cardiology Bobo Jones DO [address] [place] [address] [phone] [facility] Start: 08-15-2020 End: 08-15-2020 Evaluation 08/15/2020 Evaluation Physical Therapy Kobe Hurt, PT [address] [place] [address] [phone] [facility] Start: 08-12-2020 End: 08-12-2020 Office Visit 08/12/2020 Office Visit Pulmonology Ken Mackey MD [address] [place] [address] [phone] [facility] Start: 07-19-2020 End: 07-19-2020 Office Visit 07/19/2020 Office Visit Cardiology Bobo Jones DO [address] [place] [address] [phone] [facility] Start: 05-07-2020 End: 05-07-2020 Office Visit 05/07/2020 Office Visit Pulmonology Ken Mackey MD [address] [place] [address] [phone] [facility] Start: 04-23-2020 End: 04-23-[address] [facility] Start: 02-19-2020 Creatinine monitoring Creatinine monitoring [facility] [place] , [place] Start: 02-19-2020 Potassium monitoring Potassium [facility] [place] [place] Start: 12-22-2019 End: 12-22-2019 Office Visit 12/22/2019 Office Visit Cardiology Bobo Jones DO [address] [place] [address] [phone] [facility] Start: 11-27-2019 A1C test (Diabetic or Prediabetic) A1C test (Diabetic or Prediabetic) [place] Start: 11-27-2019 HbA1c (Bld) [Mass fraction] A1C test (Diabetic or Prediabetic) [place] Start: 10-23-2019 End: 10-23-2019 Office Visit 10/23/2019 Office Visit Pulmonology Ken Mackey MD [address] [facility] [address] [place] [address] [phone] [facility] Start: 09-12-2019 End: 09-12-2019 Office Visit 09/12/2019 Office Visit Cardiology Bobo Jones DO [address] [place] [address] [address] [place] [address] [phone] [facility] [place] Start: 06-18-2019 FECAL OCCULT BLOOD FECAL OCCULT BLOOD [facility] Start: 05-21-2019 Annual Wellness Visit (AWV) Annual Wellness Visit (AWV) [place] Start: 11-15-2018 Lipid panel Lipid screen [place] Start: 11-15-2018 Lipid screen Lipid [place] Start: 04-28-2013 Diabetic microalbuminuria test Diabetic microalbuminuria test [place] Start: 2009 Colon cancer screen colonoscopy Colon cancer screen colonoscopy [place] Start: 2009 Screening for malignant neoplasm of colon Colon cancer screen colonoscopy [place] Start: 2009 Shingles Vaccine (1 of 2) Shingles Vaccine (1 of 2) [place], [place] Start: 02-15-2004 COLOGUARD (FIT-DNA) COLOGUARD (FIT-DNA) [facility] Start: 02-15-[address] COLONOGRAPHY [facility] Start: 02-15-2004 SIGMOIDOSCOPY SIGMOIDOSCOPY [facility] Start: 1978 DTaP/Tdap/Td vaccine (1 - Tdap) DTaP/Tdap/Td vaccine (1 - Tdap) [place] Start: 1977 BP CONTROLLED (<130/80) BP CONTROLLED (<130/80) [facility] Start: 1974 HIV screen HIV screen [place] Start: 1974 HIV screening HIV screen [place] Start: 1970 DTaP/Tdap/Td vaccine (1 - Tdap) DTaP/Tdap/Td vaccine (1 - Tdap) [place] Start: 1969 [object Object] Diabetic foot exam [place] Start: 1969 Diabetic foot examination Diabetic foot exam [place] Start: 1969 Diabetic retinal exam Diabetic retinal exam [place], [place] End: 09-05-2019 Bacteria identified Cx Nom (U) Urine Culture Microbiology STAT Once for 1 Occurrences starting 09/05/2019 until 09/05/2019 [place] Immunizations Immunization Date Immunization Notes Care Provider Fa cili 03-20-2021 COVID-19 vaccine, ag e 12+ yr (PFIZER-BIONTECH - PURPLE TOP) Charles Rizo MD Work Phone: [facility] 03-01-2021 COVID-19 vaccine, ag e 12+ yr (PFIZER-BIONTECH - PURPLE TOP) Charles Rizo MD Work Phone: [facility] 01-08-2021 zoster vaccine recombinant Charles Rizo MD Work Phone: [facility] 09-14-2020 zoster vaccine recombinant Charles Rizo MD Work Phone: [facility] Payers Date Payer Category Payer Medicaid [facility] MEDICAID MYC ARE [facility] MEDICAID [id number] 2018-Present [phone] [address] [place] [address] Medicaid [id number] 2018 Medicare [id number] 2018 Medicare [facility] MEDICARE MYC ARE [facility] MEDICARE [id number] 2018-Present [phone] [address] [place] [address] Medicare [id number] 2015 Private Health Insurance [id number] 2015 Private Health Insurance [facility] xxxxxxxxx 2015-Present [address] [place] [address] xxxxxxxxx [id number] 1959 Unknown [id number]. [id number] 1959 Unknown [id number]. 2.182 1959 Unknown [id number] [id number]. 2.182 1959 Unknown [id number] [id number]. 2.182 1959 Unknown [id number] [id number]. 2.182 1959 Unknown [id number] [id number]. 2.182 1959 Unknown [id number] [id number]. 2.182 1959 Unknown [id number] [id number]. 2.182 1959 Unknown [id number] [id number]. 2.182 1959 Unknown [id number] [id number]. 2.182 1959 Unknown [id number]. 2.182 Social History Date Type Detail Facility Start: 07-27-2019 End: 04-08-2023 Tobacco smoking status NHIS Never smoker [facility] Work Phone: Start: 07-27-2019 End: 08-26-2019 Alcohol intake No [facility] [place] [facility] Start: 04-17-2017 Alcohol Comment social [facility]- [place] Start: 1960 Sex Assigned At Not on file M rashmi [facility] [place] Start: 04-23-2020 End: 04-08-2023 Alcohol intake Current non-drinker of alcohol (finding) [facility] [email or web address] [place] Exposure to SARS-CoV -2 (event) Unable to assess [facility], [place] Start: 08-07-2020 End: 04-08-2023 Tobacco use and exposure Never used [email or web address] [place] Start: 08-16-2021 End: 09-15-2021 Exposure to SARS-CoV-2 (event) Not sure [email or web address] [place] Start: 05-14-2020 End: 09-30-2020 History SDOH Alcohol Frequency 1 [facility] Start: 09-30-2020 History SDOH Alcohol Std Drinks 98 [facility] Start: 05-14-2020 End: 09-03-2020 History SDOH Social Connections Phone 4 [facility] Start: 05-14-2020 End: 01-28-2021 History SDOH Social Connections Membership 2 [facility] Start: 05-14-2020 History SDOH Social Connections Living 8 [facility] Start: 05-14-2020 History SDOH Physica l Activity DPW 0 [facility] Start: 05-14-2020 History SDOH Stress 5 [facility] Start: 05-13-2020 Education 12 [facility] Medical Equipment Procedure Code Equipment Code Equipment Origin al Text Equipment Identifier Dates [id number] Start: 10-31-2012 Goals Date Patient Goal Desired Activity /State Progress note 04-08-2023 Note Date & Type Note Facility 04-08-2023 Note HNO ID: [id number] Author: Pearl Mckinley APRN.CJ Service: ? Author Type: Nurse Practitioner Type: Progress Notes Filed: 04/08/2023 1:42 PM Note Text: [facility] SERVICE DATE: 04/06/2023 [...] 07/15: PCNL , right side Went to [place] ED on WEDNESDAY FOR ANURIA, BLADDER SCAN [...] kidney disease) stage 3, GFR 30-59 ml/min ([facility]) Dr. Hendrix Decreased breath sounds at right lung base Dr. Mackey Diabetic polyneuropathy associated with type 2 diabetes mellitus ([facility]) Diabetic retinopathy associated with type 2 diabetes mellitus ([facility]) bilateral retinopathy; Dr. Ozuna Elevated hemidiaphragm Dr. 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 Ozuna Hip arthritis History of gout History of MRSA infection History of myocardial infarction Dr. Jones Hyperlipidemia Hypertension Dr. Hendrix Insulin dependent type 2 diabetes mellitus, uncontrolled MDD (major depressive disorder) Microalbuminuria Obesity MARY on CPAP Dr. Mackey Osteoarthritis of multiple joints PAD (peripheral artery disease) ([facility]) peripheral artery stents (2 in R leg); Dr. Jones Personal history of colonic polyps colonoscopy 07/16, repeat 5 yrs Personal history of kidney stones Dr. Agosto PVD (peripheral vascular disease) ([facility]) Dr. Jones Requires supplemental oxygen S/P PTCA (percutaneous transluminal coronary angioplasty) x 2; Dr. Jones S/P thyroidectomy unsure if partial thyroidectomy Toe amputee ([facility]) Dr. Senior Tremor of both hands Unstable gait PAST SURGICAL HISTORY Procedure Laterality Date CARDIAC CATH 08/15 (Dr. Hart at [facility]no additional stents placed (med management) CARDIAC [...] tablet by mouth three times daily. Insulin [place], Disposable, (BD ULTRAFINE III MINI PEN) 31 [...] HCl (PROZAC) 4 (more content not included)... [facility] Instructions 04-08-2023 Patient Instructions Note Date & Type Note Facility 04-08-2023 Instructions Pearl Mckinley APRN.[facility] - 04/08/2023 1:29 PM EDT General [...] more? National Digestive Diseases Information Clearinghouse2 Information [place], [place] [address] www.digestive.niddk.nih.gov email: References: National Digestive Diseases Information Clearinghouse. Constipation. digestive.niddk.nih.gov Accessed September 02, 2012. [place] [employer]. Understanding Constipation. www.gastro.org. Accessed September 02, 2012. Copyright 9333-5357 [facility]. All rights reserved This information is provided by the [facility] and is not intended to replace the medical advice of your doctor or health care provider. Please consult your health care provider for advice about a specific medical condition. For additional health information, please contact the Center for Consumer Health Information at the [facility] or toll-free extension [phone]. If you prefer, you may visit [email or web address] or [email or web address]. This document was last reviewed on: 2012 index #4059 documented in this encounter [facility] History of Present illness Narrative 04-08-2023 Pearl Mckinley APRN.CNP - 04/08/2023 1:00 PM EDT Note Date & Type Note Facility 04-08-2023 History of Presen t illness Narrative [facility] SERVICE DATE: 04/06/2023 [...] 07/15: PCNL , right side Went to [place] [facility] on WEDNESDAY FOR ANURIA, BLADDER SCAN [...] kidney disease) stage 3, GFR 30-59 ml/min ([facility]) Dr. Hendrix Decreased breath sounds at right lung base Dr. Mackey Diabetic polyneuropathy associated with type 2 diabetes mellitus ([facility]) Diabetic retinopathy associated with type 2 diabetes mellitus ([facility]) bilateral retinopathy; Dr. Ozuna Elevated hemidiaphragm Dr. 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 Ozuna Hip arthritis History of gout History of MRSA infection History of myocardial infarction Dr. Jones Hyperlipidemia Hypertension Dr. Hendrix Insulin dependent type 2 diabetes mellitus, uncontrolled MDD (major depressive disorder) Microalbuminuria Obesity MARY on CPAP Dr. Mackey Osteoarthritis of multiple joints PAD (peripheral artery disease) ([facility]) peripheral artery stents (2 in R leg); Dr. Jones Personal history of colonic polyps colonoscopy 07/16, repeat 5 yrs Personal history of kidney stones Dr. Agosto PVD (peripheral vascular disease) ([facility]) Dr. Jones Requires supplemental oxygen S/P PTCA (percutaneous transluminal coronary angioplasty) x 2; Dr. Jones S/P thyroidectomy unsure if partial thyroidectomy Toe amputee ([facility]) Dr. Senior Tremor of both hands Unstable gait PAST SURGICAL HISTORY Procedure Laterality Date CARDIAC CATH 08/15 (Dr. Hart at [facility]no additional stents placed (med management) CARDIAC [...] tablet by mouth three times daily. Insulin [place], Disposable, (BD ULTRAFINE III MINI PEN) 31 [...] MARY W/ CPAP CARDIOVASCULAR: CAD, HX OF [place], HLD, HTN, PAD/PVD GI: HX GOUT, COLON [...] OFFICE FOR REVIEW documented in this encounter [facility] Note 05-01-2022 Telephone Encounter - Sheila Bush Ma - 05/01/2022 4:26 PM EDTTelephone Encounter - ABBY Siddiqi - 05/01/2022 3:42 PM EDT Note Date & Type Note Facility 05-01-2022 Miscellaneous Notes Patient last seen in office 12/24/20. Note faxed to number provided. Liberty from [facility] calling concerning Rea Linda today. : 1960 Allergies: Allopurinol, Influenza Virus Vaccines, and Pneumovax 23 [Pneumococcal 23-Ronit Ps Vaccine] Reason for call: Requesting to have patients most recent office visit notes faxed to: [phone] Patient last appointment: 01/20/2022 ABBY Siddiqi documented in this encounter [facility] Note 09-02-2021 Telephone Encounter - Colleen Garza RN - 09/02/2021 12:40 PM EDT Note Date & Type Note Facility 09-02-2021 Miscellaneous Notes ROBERT Hardwick from [facility] called Patient rolled out of bed today, hit his head on the side table No injury, patient is fine PT is required to report a fall Nothing is required from provider at this time documented in this encounter [facility] Progress note 05-01-2021 Note Date & Type Note Facility 05-01-2021 Note HNO ID: [id number] Author: Lalo Vail APRN.LIBRARY MONITOR Service: ? Author Type: Nurse Practitioner Type: [...] kidney disease) stage 3, GFR 30-59 ml/min (FORM[facility]LY [facility]) Dr. Hendrix - Decreased breath sounds at right lung base Dr. Mackey - Diabetic polyneuropathy associated with type 2 diabetes mellitus ([facility]) - Diabetic retinopathy associated with type 2 diabetes mellitus ([facility]) bilateral retinopathy; Dr. Ozuna - Elevated hemidiaphragm Dr. 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 Ozuna - Hip arthritis - History of gout - History of MRSA infection - History of myocardial infarction has had STEMI and NSTEMI; Dr. Jones - Hyperlipidemia - Hypertension Dr. Hendrix - Insulin dependent type 2 diabetes mellitus, uncontrolled ([facility]) Dr. Phipps - MDD (major depressive disorder) - Microalbuminuria Dr. Phipps - Obesity - MARY on CPAP Dr. Mackey - Osteoarthritis of multiple joints - PAD (peripheral artery disease) ([facility]) peripheral artery stents (2 in R leg); Dr. Jones - Personal history of colonic polyps colonoscopy 07/16, repeat 5 yrs - Personal history of kidney stones Dr. Agosto - PVD (peripheral vascular disease) ([facility]) Dr. Jones - S/P PTCA (percutaneous transluminal coronary angioplasty) x 2; Dr. Jones - S/P thyroidectomy unsure if partial thyroidectomy - Toe amputee ([facility]) Dr. Testrake - Tremor of both hands - Unstable gait PAST SURGICAL HISTORY Procedure Laterality Date - CARDIAC CATH 08/15 (Dr. Hart at [facility])--no additional stents placed (med management) - [...] mg cap to (more content not included)... [facility] History of Past illness Narrative 01-24-2021 Note Date & Type Note Facility documented as of this encounter (statuses as of 02/20/2022) [facility] History of Past illness Narrative 01-24-2021 Note Date & Type Note Facility documented as of this encounter (statuses as of 05/01/2022) [facility] History of Past illness Narrative 01-24-2021 Note Date & Type Note Facility documented as of this encounter (statuses as of 04/08/2023) [facility] Evaluation note Note Date & Type Note Facility documented in this encounter [facility] Summary Purpose Family History No Family History Records FoundNo Family History Records FoundNo Family History Records FoundNo Family History Records FoundNo Family History Records Found Advance Directives No Advanced Directives Records FoundDocuments on File Type Date Recorded Patient Cans Vacuum Tester Expl anation Advance Directives and Living Will Power of Manager Product Latest Code Status on File Code Status [...] Documents on File Type Date Recorded Patient Cans Vacuum Tester Expl anation Advance Directives and Living Will Power of Manager Product Latest Code Status on File Code Status Date Activated Date Inactivated Comments Full Code 08/21/2019 12:20 AM 08/24/2019 7:49 PM Full Code 11/27/2018 6:36 AM 11/29/2018 8:49 PM Full Code 11/15/2017 3:43 PM 11/15/2017 7:49 PM Full Code 11/14/2017 11:42 PM 11/15/2017 3:43 PM Full Code 08/11/2017 2:27 PM 08/12/2017 3:15 AM Documents on File Type Date Recorded Patient Cans Vacuum Tester Expl anation ACP-Advance Directive ACP-Power of Manager Product Documents on File Type Date Recorded Patient Cans Vacuum Tester Expl anation ACP-Advance Directive ACP-Power of Manager Product Documents on File Type Date Recorded Patient Cans Vacuum Tester Expl anation Advance Directive(s) 07/19/2018 6:23 PM Advance Directive(s) 07/14/2018 6:23 AM Advance Directive(s) 07/07/2018 7:18 AM Advance Directive(s) 06/28/2018 8:17 AM Advance Directive(s) 12/29/2016 8:10 AM Advance Directive(s) 12/10/2016 8:19 AM Discharge Instructions * Attachments The following attachments cannot be sent through Care Everywhere. * Sciatica (Malagasy) documented in this encounter* Instructions* Jamal Veliz PA-C - 09/05/2019 Follow-up with commercial real estate appraiser and primary care doctor. Return to if any symptoms worsen or new symptoms develop. * Attachments The following attachments cannot be sent through Care Everywhere. * Hypertension: General Info (Malagasy) * Diabetes: Type 2: General Info (Malagasy) documented in this encounter* Instructions* Jamal Veliz PA-C - 08/13/[address] Hernandez, and primary care docotor. Use your walker. Return to ER if any symptoms worsen or new symptoms develop. * Attachments The following attachments cannot be sent through Care Everywhere. * Leg Pain (Malagasy) documented in this encounter* Attachments The following attachments cannot be sent through Care Everywhere. * Pneumonia (Malagasy) documented in this encounter Assessments Diagnosis Sciatica [...] Lung nodule Procedures CT CHEST WO CONTRAST [place] BREATHING CAPACITY TEST EVAL BRONCHOSPASM EVAL AFTER BRONCHODIALTOR Ken Mackey MD [address] [place] [address] Status Reason Specialty Diagnoses / Procedures Referre d By Contact Referred To Contact Open Radiology Diagnoses PAD (peripheral artery disease) (HCC) Claudication ([facility]) Procedures US DUP LOWER ART/BYPASS GRAFTS BILATERAL COMPLETE Bobo Jones Luan DO [address] [place] [address] Additional Source Comments (unrecognized sect ion and content) No Status Records FoundNo Status Records FoundNo Status Records FoundNo Status Records FoundNo Status Records Found INFORMATION SOURCE (unrecogn ized section and content) DATE CREATED AUTHOR AUTHOR'S ORGANIZ ATION 07/24/2018 [facility] DATE CREATED AUTHOR AUTHOR'S ORGANIZ ATION 08/14/2020 [facility] DATE CREATED AUTHOR AUTHOR'S ORGANIZ ATION 06/04/2021 [facility] DATE CREATED AUTHOR AUTHOR'S ORGANIZ ATION 04/10/2023 [facility] Reason for Visit (unrecogniz ed section and content) Reason Comments Hypertension sent by [facility] nurse Hyperglycemia Status Reason Specialty Diagnoses / Procedures Re ferred By Contact Referred To Contact Closed Radiology Diagnoses Lung nodule Procedures CT CHEST WO CONTRAST [place] BREATHING CAPACITY TEST EVAL BRONCHOSPASM EVAL AFTER BRONCHODIALTOR Ken Mackey MD [address] [place] [address] Status Reason Specialty Diagnoses / Procedures Referred By Contact Referred To Contact [facility] Diagnoses Obstructive sleep apnea Procedures Baseline Diagnostic Sleep Study [place] POLYSOM 6/>YRS SLEEP 4/> ADDL CIRO ATTND Ken Mackey MD [address] [place] [address] [facility] [address] [place] [address] Status Reason Specialty Diagnoses / Procedures Referre d By Contact Referred To Contact Open Radiology Diagnoses PAD (peripheral artery disease) (HCC) Claudication (HCC) Procedures US DUP LOWER ART/BYPASS GRAFTS BILATERAL COMPLETE Bobo Jones DO [address] [place] [address] Reason Comments Leg Pain and swelling on [...] or prosecute any alcohol or drug abuse patient.[facility] the event this information is protected by the Federal Confidentiality of Alcohol and Drug Abuse Patient Records regulations: The Federal rules restrict any use of the information to criminally investigate or prosecute any alcohol or drug abuse patient.[facility] the event this information is protected by the Federal Confidentiality of Alcohol and Drug Abuse Patient Records regulations: The Federal rules restrict any use of the information to criminally investigate or prosecute any alcohol or drug abuse patient.[facility] Care Teams (unrecognized sec tion and content) Physician/Ophthalmologist Relationship Specialty Start [place] [id number] [place], [place] [id number] PCP - General Family Practice 11/25/11 FOR [...] BE BASED ON THE PRIMARY CLINICAL RECORDS. [employer] provides no warranty or guarantee of the accuracy or completeness of information in this document.
[2023-12-20 19:13] LABS: Differential Indicated SCAN CRITERIA MET
[2023-12-20 19:14] LABS: Differential Comment SCANNED
[2023-12-20 19:29] LABS: Anion Gap 5 (5-15); BUN 16 mg/dL (7-18); BUN/Creat Ratio 13.6 RATIO (10-20); Calcium,Total 9.3 mg/dL (8.5-10.1); Chloride 100 mmol/L (98-107); Creatinine, Serum 1.18 mg/dL (0.70-1.30); EST Glomerular Filtration Rate 66 mL/min (>60); Est Glom Filt Rate - Afr Amer 80 mL/min (>60); Estimated Creatinine Clearance 78.97 ml/min; Glucose 230 mg/dL (74-106); Potassium 3.3 mmol/L (3.5-5.1); Sodium Level 134 mmol/L (136-145)
[2023-12-20 19:38] VITALS: BP 141/85; PULSE 89; RESP 18; O2SAT 96
[2023-12-20] MEDS: CHLORPROMAZINE IV (19:40)
[2023-12-20] MEDS: NORMAL SALINE 0.9% IV (19:40)
[2023-12-20 20:39] VITALS: BP 142/79; PULSE 81; RESP 18; O2SAT 95
--- NOTE | 2023-12-20 23:32 | ED.RN ---
CALLED PHYSICIANS FOR AN UPDATE ON THE ETA AT [phone], THEY SAID CREW IS 25 MINUTE OUT. WE WERE NOT NOTIFIED OF THIS ADDED ON ETA BEFORE.
--- NOTE | 2023-12-20 23:35 | ED.RN ---
CALLED PHYSICIANS AGAIN AT [phone] FOR AN UPDATED ETA (STILL NOT ARRIVED). THEY SAID THE CREW IS ABOUT 8 MINUTES AWAY. WE WERE NOT PREVIOUSLY NOTIFIED ABOUT THIS ADDED ETA.
[2023-12-22 14:28] LABS: Pathologist Review Reviewed
== END 2023-12-20 23:58 ==
PROVIDERS: Emergency Provider Emergency Medicine; PCP Internal Medicine; Visit Provider Emergency Medicine
DX: J96.11 Chronic respiratory failure with hypoxia (principal); E11.621 Type 2 diabetes mellitus with foot ulcer; E11.51 Type 2 diabetes mellitus with diabetic peripheral angiopathy without gangrene; Z93.1 Gastrostomy status; L97.522 Non-pressure chronic ulcer of other part of left foot with fat layer exposed; E11.22 Type 2 diabetes mellitus with diabetic chronic kidney disease; E11.42 Type 2 diabetes mellitus with diabetic polyneuropathy; Z79.4 Long term (current) use of insulin; I25.10 Atherosclerotic heart disease of native coronary artery without angina pectoris; I12.9 Hypertensive chronic kidney disease with stage 1 through stage 4 chronic kidney disease, or unspecified chronic kidney disease; N18.9 Chronic kidney disease, unspecified; E78.00 Pure hypercholesterolemia, unspecified; I25.2 Old myocardial infarction; I5A Non-ischemic myocardial injury (non-traumatic); F41.8 Other specified anxiety disorders; Z79.899 Other long term (current) drug therapy; K21.9 Gastro-esophageal reflux disease without esophagitis; Z79.82 Long term (current) use of aspirin; Z95.820 Peripheral vascular angioplasty status with implants and grafts; R41.3 Other amnesia; I89.0 Lymphedema, not elsewhere classified
CPT/HCPCS: 71046; 80048; 85025; 96365; 99283; A4216; J3490